=== PATIENT | female | born 1945 | race Caucasian/White ===

== ENCOUNTER 2020-12-23 17:11 | Observation (INO) | payer MEDICARE, SELFPAY ==
[2020-12-23] VITALS (9 sets, daily range): BP systolic 153–194; BP diastolic 68–105; PULSE 72–91; RESP 16–28; TEMP 36.2–36.8; O2SAT 95–99; BMI 37.5; BMI 41.6
--- NOTE | 2020-12-23 17:49 | RAD_ITS ---
STUDY: X-RAY - LEFT TIBIA AND FIBULA REASON FOR EXAM: Female, 75 years old. PAIN, INFECTION TECHNIQUE: 4 view(s) of the tibia and fibula were obtained. COMPARISON: None. FINDINGS: Normal visualized tibia. Normal visualized fibula. There is non-specific soft tissue swelling. RAD/Tibia & Fibula 2 Views IMPRESSION: Diffuse soft tissue swelling. Electronically Signed: Sonal Hernandez MD at 19:20 EDT Tel , Service support ,
--- NOTE | 2020-12-23 18:23 | ED.RN ---
PT IS A DIFFICULT IV START. WILL ATTEMPT A IV START WITH THE ULTRASOUND. Kunal STATON RN [id number]
--- NOTE | 2020-12-23 18:26 | RAD_ITS ---
STUDY: X-RAY - RIGHT TIBIA AND FIBULA REASON FOR EXAM: Female, 75 years old. Pain, infection TECHNIQUE: 4 view(s) of the tibia and fibula were obtained. COMPARISON: None. FINDINGS: Normal visualized tibia. Normal visualized fibula. There is non-specific soft tissue swelling. RAD/Tibia & Fibula 2 Views IMPRESSION: Soft tissue swelling. Electronically Signed: Sonal Hernandez MD at 19:17 EDT Tel , Service support ,
[2020-12-23 20:12] LABS: Absolute Lymphocyte Count 2.03 X10^3/uL (0.83-4.51); Absolute Neutrophil Count 10.8 X10^3/uL (2.0-7.7); Basophil# 0.08 X10^3/uL; Basophil% 0.6 % (0-1); Eosinophils% 1.4 % (0-5); Hematocrit 41.9 % (37-47); Hemoglobin 12.9 g/dL (12.0-15.0); Lymphocyte # 2.03 X10^3/ul (0.83-4.51); Lymphocyte % 14.1 % (19-41); Mean Corp Hgb Conc 30.8 g/dL (32-36); Mean Corpuscular Hgb 28.9 pg (27.0-32.0); Mean Corpuscular Volume 93.7 fL (81-99); Mean Platelet Vol. 10.5 fl (6.2-12.0); Monocyte# 1.28 X10^3/uL; Monocyte% 8.9 % (0-10); NRBC Flagged by Analyzer 0 % (0-5); Neutrophil # 10.77 X10^3/uL (2.7-7.7); Neutrophil % 74.7 % (47-70); POSITIVE COUNT YES; Platelet Count 280 K/mm3 (150-450); RBC Distribution Width CV 13.6 % (11.6-14.6); RBC Distribution Width SD 47.2 fl (35.1-43.9); Red Blood Count 4.47 M/mm3 (4.2-5.4); White Blood Count 14.4 K/mm3 (4.4-11.0)
[2020-12-23 20:16] LABS: Differential Indicated SCAN CRITERIA MET
[2020-12-23 20:33] LABS: ALB/GLOB Ratio 0.7 RATIO (0.9-2.4); AST(SGOT) 34 U/L (15-37); Alanine Aminotransfer ALT/SGPT 19 U/L (13-56); Albumin, Serum 3.1 g/dL (3.2-5.0); Alkaline Phosphatase 147 U/L (45-117); Anion Gap 4 (5-15); BUN 26 mg/dL (7-18); BUN/Creat Ratio 23.6 RATIO (10-20); Chloride 106 mmol/L (98-107); EST Glomerular Filtration Rate 51 mL/min (>60); Est Glom Filt Rate - Afr Amer 62 mL/min (>60); Estimated Creatinine Clearance 41.65 ml/min; Globulin 4.6 g/dL (2.2-4.2); Glucose 56 mg/dL (74-106); Lactic Acid 1.1 mmol/L (0.4-1.9); Potassium 4.8 mmol/L (3.5-5.1); Protein, Total 7.7 g/dL (6.4-8.2); Sodium Level 138 mmol/L (136-145)
--- NOTE | 2020-12-23 20:37 | EX.ED.DYSGE1 ---
HPI History of Present Illness Chief Complaint: Cellulitis Onset/Context/Timing Onset: Month(s) Context: Gradual Onset Timing: Continuous Location: BLE Current Severity: Moderate Maximum Severity: Moderate Narrative Narrative: Patient states she has been having swelling in both of her legs for the past 5 or 6 months, in addition to having a small wound on one of them near her ankle. She states she was sent to a wound care clinic in [place] by her doctor, and has seen lots of other doctors/specialists in the meantime. She has had wound care but no antibiotics, diuretics. She states that she has noticed significant worsening of the swelling, redness, pain, and wounds on both ankles for the past 3 or 4 weeks and states that she has seen so many care providers in that amount of time that she cannot remember how many or what they were but that no one prescribed her an antibiotic or a diuretic. She now presents out of concern because it looks and feels so bad. She states she felt a little feverish last night and she states she took her temperature at home and it was 100.2. She denies feeling poorly today or having symptoms elsewhere except for her legs, including denying dyspnea/orthopnea. She states she is a diabetic and that her sugars have been somewhat under control. PFSH PFSH Medical History Arthritis Chronic pain Combined hyperlipidemia Depression Diabetes Hypertension Hypothyroidism Non-smoker Home Medications amlodipine 10 mg PO DAILY 12/23/20 [History Last Taken Unknown] ergocalciferol (vitamin D2) [Vitamin D2] 1,250 mcg PO DAILY 12/23/20 [History Last Taken Unknown] hydroxyzine HCl 25 mg PO TID PRN 12/23/20 [History Last Taken Unknown] insulin aspart U-100 [Novolog Flexpen U-100 Insulin] 14 unit SUBCUT TID 12/23/20 [History Last Taken Unknown] insulin degludec [Tresiba FlexTouch U-100] 22 unit SUBCUT BID 12/23/20 [History Last Taken Unknown] levothyroxine 137 mcg PO DAILY 12/23/20 [History Last Taken Unknown] lisinopril 40 mg PO DAILY 12/23/20 [History Last Taken Unknown] meloxicam 15 mg PO DAILY 12/23/20 [History Last Taken Unknown] paroxetine HCl 20 mg PO DAILY 12/23/20 [History Last Taken Unknown] pramipexole 2 mg PO QHS 12/23/20 [History Last Taken Unknown] zolpidem 12.5 mg PO QHS 12/23/20 [History Last Taken Unknown] Allergy/AdvReac Type Severity Reaction Status Date / Time aspirin [From Percodan] Allergy Other Verified 12/23/20 17:12 oxycodone [From Percodan] Allergy Other Verified 12/23/20 17:12 vancomycin Allergy Rash Verified 12/23/20 21:40 Surgical History (Updated 12/23/20 @ 17:25 by Franko Hooper) History of appendectomy History of cholecystectomy History of lung biopsy Social History Smoking Status: Never smoker ROS ROS ED Constitutional Constitutional ED: Denies chills or fever(s) Eyes Eyes: Denies change in vision or diplopia ENT ENT ED: Denies rhinorrhea or sore throat Cardiovascular Cardiovascular: Denies chest pain or palpitations Respiratory/Chest Respiratory/Chest: Denies cough or dyspnea Gastrointestinal Gastrointestinal: Denies abdominal pain, diarrhea, nausea or vomiting Genitourinary Genitourinary ED: Denies dysuria or hematuria Musculoskeletal Musculoskeletal: Reports as per HPI and extremity pain; Denies back pain or neck pain Integumentary Reports as per HPI, rash and wounds; Denies abscess Neurologic Neurologic: Denies headache(s), paresthesias or weakness Psychiatric Psychiatric: Denies anxiety or suicidal thoughts EXAM Physical Exam Const Vital Signs: 12/23/20 17:12 12/23/20 18:56 12/23/20 19:14 Temperature 97.1 F L 98.2 F Temperature Source Temporal Temporal Pulse Rate 91 72 76 Respiratory Rate 18 16 20 H Blood Pressure 156/105 H 184/92 H Blood Pressure Mean 122 122 Pulse Ox 95 97 99 Oxygen Delivery Method Room Air Room Air Room Air 12/23/20 19:30 12/23/20 20:00 12/23/20 21:17 Temperature 98.2 F 98.2 F 97.7 F L Temperature Source Temporal Temporal Temporal Pulse Rate 79 83 Respiratory Rate 16 28 H Blood Pressure 174/70 H 178/104 H Blood Pressure Mean 104 128 Pulse Ox 98 97 Oxygen Delivery Method Room Air Room Air 12/23/20 21:19 Temperature 97.7 F L Temperature Source Temporal Pulse Rate Respiratory Rate Blood Pressure Blood Pressure Mean Pulse Ox Oxygen Delivery Method Positive well nourished, well developed and obese General Appearance ED: well developed and NAD Nutritional Appearance: obese HEENT Reports moist mucous membranes normocephalic and atraumatic Eyes PERRL and EOMs intact bilaterally Neck full ROM and supple Resp normal respiratory effort and clear to auscultation bilaterally Cardio regular rate, regular rhythm and no murmurs GI non-tender and non-distended Auscultation: normoactive bowel sounds Palpation: soft Back/Spine no CVA tenderness General Back: other FROM Extremity Extremity Narrative: Patient has symmetric appearing edematous both lower legs which are erythematous, with tender seeping wounds without any purulent discharge, with multiple scabbed areas and all of this does appear to be somewhat subacute/chronic. Feet do not appear to be affected by erythema or wounds. Brisk cap refill distally. Difficult to feel pulses due to edema. General Extremety ED: Negative for pulses abnormal General Extremity: Negative for pulses abnormal Neuro oriented x3, CN's II-XII intact bilaterally and no sensory deficits noted Sensorium / Orientation: awake and alert Motor Exam: strength 5/5 throughout Skin Skin Narrative: Wounds as described above to both lower legs circumferentially. No other rashes noted. No lymphangitis. No abscess. Clear-yellow serous weeping fluid. MDM MDM MDM Narrative Medical decision making narrative: Patient appears clinically to have lymphedema that likely resulted in what appears now to be fairly significant cellulitis in both legs with associated wounds that are seeping because they are open and she has lymphedema. Her BNP is well within normal limits, ruling out acute decompensated congestive heart failure as cause for her significant lymphedema in both lower extremities that appears symmetric. She has a leukocytosis. I think this is infectious on top of chronic lymphedema. I gave her a dose of vancomycin, however after about a third of it was infused she started developing an itchy red rash throughout the extremity that the IV was in, so it was stopped and subsequently discontinued. She was given Zosyn then after that. She wants to be admitted. I think we can justify that given the degree the infection is at at this time. On reexamination the cellulitis looks exactly the same as it did when I first saw her, as do the wounds. Her x-ray showed no subcutaneous gas or signs of bony involvement. Discussed with hospitalist. Patient clinically and hemodynamically stable and does not meet criteria for sepsis at this time, although we did do a septic work-up to begin with, her lactate was within normal limits and we did obtain one blood culture but she was such a difficult stick for blood, we skipped the second. Lab Data Attestation: I reviewed the patient's lab results. Labs: Laboratory Results - last 24 hr 12/23/20 12/23/20 12/23/20 18:45 19:51 19:51 WBC Cancelled Corrected WBC Cancelled RBC Cancelled Hgb Cancelled Hct Cancelled MCV Cancelled MCH Cancelled MCHC Cancelled RDW Std Deviation Cancelled RDW Coeff of Daphney Cancelled Plt Count Cancelled MPV Cancelled Immature Gran % (Auto) Cancelled Neut % (Auto) Cancelled Lymph % (Auto) Cancelled [place] % (Auto) Cancelled Eos % (Auto) Cancelled Baso % (Auto) Cancelled Absolute Neuts (auto) Cancelled Absolute Lymphs (auto) Cancelled Total Counted Cancelled Neutrophils % (Manual) Cancelled Band Neutrophils % Cancelled Lymphocytes % (Manual) Cancelled Monocytes % (Manual) Cancelled Eosinophils % (Manual) Cancelled Basophils % (Manual) Cancelled Metamyelocytes % Cancelled Myelocytes % Cancelled Promyelocytes % Cancelled Blast Cells % Cancelled Plasma Cell % (Manual) Cancelled Other Cells % Cancelled Nucleated RBC % Cancelled Nucleated RBCs/100 WBC Cancelled Differential Comment Cancelled Diff Path Review Cancelled Hypersegmented Neuts Cancelled Atypical Lymphocytes Cancelled Reactive Lymphocytes Cancelled Smudge Cells Cancelled Toxic Granulation Cancelled Toxic Vacuolation Cancelled Dohle Bodies Cancelled Shama Rods Cancelled Platelet Estimate Cancelled Plt Morphology Comment Cancelled RBC Morphology Cancelled Polychromasia Cancelled Hypochromasia Cancelled Poikilocytosis Cancelled Basophilic Stippling Cancelled Anisocytosis Cancelled Microcytosis Cancelled Macrocytosis Cancelled Spherocytes Cancelled Sickle Cells Cancelled Target Cells Cancelled Tear Drop Cells Cancelled Ovalocytes Cancelled Stomatocytes Cancelled [place] Bodies Cancelled Sunny Cells Cancelled Bite Cells Cancelled Crenated Cell Cancelled Acanthocytes (Spur) Cancelled Rouleaux Cancelled Schistocytes Cancelled Sodium 138 Potassium 4.8 Chloride 106 Carbon Dioxide 28.0 Anion Gap 4 L BUN 26 H Creatinine 1.10 H Estim Creat Clear Calc 41.65 Est GFR (MDRD) Af Amer 62 Est GFR (MDRD) Non-Af 51 L BUN/Creatinine Ratio 23.6 H Glucose 56 L Lactic Acid 1.1 Calcium 9.0 Total Bilirubin 0.50 AST 34 ALT 19 Alkaline Phosphatase 147 H B-Natriuretic Peptide Total Protein 7.7 Albumin 3.1 L Globulin 4.6 H Albumin/Globulin Ratio 0.7 L Urine Color Urine Clarity Urine pH Ur Specific [place] Urine Protein Urine Glucose (UA) Urine Ketones Urine Occult Blood Urine Nitrite Urine Bilirubin Urine Urobilinogen Ur Leukocyte Esterase Urine RBC Urine WBC Ur Squamous Epith Cells Urine Bacteria Urine Mucus 12/23/20 12/23/20 12/23/20 19:51 19:51 20:30 WBC 14.4 H Corrected WBC RBC 4.47 Hgb 12.9 Hct 41.9 MCV 93.7 MCH 28.9 MCHC 30.8 L RDW Std Deviation 47.2 H RDW Coeff of Daphney 13.6 Plt Count 280 MPV 10.5 Immature Gran % (Auto) 0.300 Neut % (Auto) 74.7 H Lymph % (Auto) 14.1 L [place] % (Auto) 8.9 Eos % (Auto) 1.4 Baso % (Auto) 0.6 Absolute Neuts (auto) 10.8 H Absolute Lymphs (auto) 2.03 Total Counted Neutrophils % (Manual) Band Neutrophils % Lymphocytes % (Manual) Monocytes % (Manual) Eosinophils % (Manual) Basophils % (Manual) Metamyelocytes % Myelocytes % Promyelocytes % Blast Cells % Plasma Cell % (Manual) Other Cells % Nucleated RBC % 0 Nucleated RBCs/100 WBC Differential Comment Diff Path Review Hypersegmented Neuts Atypical Lymphocytes Reactive Lymphocytes Smudge Cells Toxic Granulation Toxic Vacuolation Dohle Bodies Shama Rods Platelet Estimate ADEQUATE Plt Morphology Comment RBC Morphology NORM C+C Polychromasia Hypochromasia Poikilocytosis Basophilic Stippling Anisocytosis Microcytosis Macrocytosis Spherocytes Sickle Cells Target Cells Tear Drop Cells Ovalocytes Stomatocytes [place] Bodies Sunny Cells Bite Cells Crenated Cell Acanthocytes (Spur) Rouleaux Schistocytes Sodium Potassium Chloride Carbon Dioxide Anion Gap BUN Creatinine Estim Creat Clear Calc Est GFR (MDRD) Af Amer Est GFR (MDRD) Non-Af BUN/Creatinine Ratio Glucose Lactic Acid Calcium Total Bilirubin AST ALT Alkaline Phosphatase B-Natriuretic Peptide 45.0 Total Protein Albumin Globulin Albumin/Globulin Ratio Urine Color Yellow Urine Clarity Clear Urine pH 5.0 Ur Specific [place] 1.030 Urine Protein Negative Urine Glucose (UA) Normal Urine Ketones 5 H Urine Occult Blood Negative Urine Nitrite Negative Urine Bilirubin Negative Urine Urobilinogen Normal Ur Leukocyte Esterase 25 H Urine RBC 0 SEEN Urine WBC 0-5 SEEN Ur Squamous Epith Cells 0-5 SEEN Urine Bacteria 2+ Urine Mucus 0 SEEN Radiography Diagnostic Testing: Radiology Impression Tibia/Fibula X-Ray 12/23/20 17:49 IMPRESSION: Diffuse soft tissue swelling. Electronically Signed: Sonal Hernandez MD at 19:20 EDT Tel , Service support , Tibia/Fibula X-Ray 12/23/20 18:26 IMPRESSION: Soft tissue swelling. Electronically Signed: Sonal Hernandez MD at 19:17 EDT Tel , Service support , Discharge Plan Triage Chief Complaint: Cellulitis ED Provider: Williams Freire Dx/Rx/DC Orders Clinical Impression: Cellulitis of both lower extremities, Lymphedema of both lower extremities Prescriptions: No Action pramipexole 1 mg tablet 2 mg PO QHS RF: 0 meloxicam 15 mg tablet 15 mg PO DAILY RF: 0 amlodipine 10 mg tablet 10 mg PO DAILY RF: 0 paroxetine HCl 20 mg tablet 20 mg PO DAILY RF: 0 hydroxyzine HCl 25 mg tablet 25 mg PO TID PRN (Reason: Anxiety) RF: 0 ergocalciferol (vitamin D2) [Vitamin D2] 1,250 mcg (50,000 unit) capsule 1,250 mcg PO DAILY RF: 0 lisinopril 40 mg tablet 40 mg PO DAILY RF: 0 levothyroxine 112 mcg tablet 137 mcg PO DAILY RF: 0 insulin aspart U-100 [Novolog Flexpen U-100 Insulin] 100 unit/mL (3 mL) insulin pen 14 unit SUBCUT TID RF: 0 zolpidem 12.5 mg tablet,ext release multiphase 12.5 mg PO QHS RF: 0 Tresiba FlexTouch U-100 100 unit/mL (3 mL) insulin pen 22 unit SUBCUT BID RF: 0 Primary Care Provider: Shiv Weiner Referrals: Shiv Weiner MD [Primary Care Provider] - Disposition Disposition: Acute Care Hospital [facility]
[2020-12-23 20:43] LABS: Mucous, Urine 0 SEEN /hpf (<or=2+); Red Blood Cells-Urine 0 SEEN /hpf (0-5)
[2020-12-23 20:48] LABS: Color, Urine Yellow (Yellow); Glucose, Dipstick Normal (Normal); Ketone-Dipstick 5 mg/dl (Negative); Leukocyte Esterase-Dipstick 25 /ul (Negative); Nitrite-Dipstick Negative (Negative); Occult Blood-Urine Negative /ul (Negative); Protein-Dipstick Negative (Negative); Urine Bilirubin Dipstick Negative (Negative); Urine Clarity Clear (Clear); Urine Urobilinogen Normal (Normal)
[2020-12-23 20:57] LABS: Platelet Estimate ADEQUATE (ADEQ); Red Cell Morphology NORM C+C NORMAL (NORM C&C)
[2020-12-23 20:58] LABS: Bacteria 2+ /hpf (None Seen); Squamous Epithelial Cells - UA 0-5 SEEN /hpf (5-10); White Blood Cells 0-5 SEEN /hpf (0-5)
--- NOTE | 2020-12-23 21:40 | ED.RN ---
DURING INFUSION OF VANCOMYCIN PT DEVELOPED A RASH. MEDICATION PLACED ON HOLD AND DR FRANCOIS WAS INFORMED. ZOSYN WAS THEN ORDERED. WAITING FOR ZOSYN TO ARRIVE FROM PHARMACY. Kunal STATON RN [id number]
--- NOTE | 2020-12-23 21:48 | PCM.HP.STD ---
HPI - General General Date of Admission: 12/23/20 HPI Narrative BLANCO SANDOVAL, is a 75 F with a significant history of hypothyroidism; diabetes mellitus; vitamin D deficiency; hypertension; depression/anxiety; restless leg syndrome; and lymphedema who presents to the emergency department with 4 to 6 months history of progressively worsening swelling of her bilateral lower legs. Associated with symptoms is erythema and pain of bilateral legs. Reportedly she has been to the lymphedema clinic/wound care and has tried multiple regimen without success. He reported that the night before presentation she had a fever of 100.2 Fahrenheit. She had no fever at the emergency department. [facility] Medical History Anemia Arthritis Chronic pain Combined hyperlipidemia Depression Diabetes Hypertension Hypothyroidism Non-smoker Rheumatoid arthritis Home Medications amlodipine 10 mg PO DAILY 12/23/20 [History Last Taken Unknown] ergocalciferol (vitamin D2) [Vitamin D2] 1,250 mcg PO DAILY 12/23/20 [History Last Taken Unknown] hydroxyzine HCl 25 mg PO TID PRN 12/23/20 [History Last Taken Unknown] insulin aspart U-100 [Novolog Flexpen U-100 Insulin] 14 unit SUBCUT TID 12/23/20 [History Last Taken Unknown] insulin degludec [Tresiba FlexTouch U-100] 22 unit SUBCUT BID 12/23/20 [History Last Taken Unknown] levothyroxine 137 mcg PO DAILY 12/23/20 [History Last Taken Unknown] lisinopril 40 mg PO DAILY 12/23/20 [History Last Taken Unknown] meloxicam 15 mg PO DAILY 12/23/20 [History Last Taken Unknown] paroxetine HCl 20 mg PO DAILY 12/23/20 [History Last Taken Unknown] pramipexole 2 mg PO QHS 12/23/20 [History Last Taken Unknown] zolpidem 12.5 mg PO QHS 12/23/20 [History Last Taken Unknown] Allergy/AdvReac Type Severity Reaction Status Date / Time aspirin [From Percodan] Allergy Other Verified 12/23/20 17:12 oxycodone [From Percodan] Allergy Other Verified 12/23/20 17:12 vancomycin Allergy Rash Verified 12/23/20 21:40 Family History Other Cancer Heart disease Surgical History History of appendectomy History of cholecystectomy History of lung biopsy Social History Smoking Status: Never smoker ROS ROS Narrative 12 point review of system is negative except as stated in HPI. Vital Signs Vital Signs Vital Signs: 12/23/20 17:12 12/23/20 18:56 12/23/20 19:14 Temperature 97.1 F L 98.2 F Temperature Source Temporal Temporal Pulse Rate 91 72 76 Respiratory Rate 18 16 20 H Blood Pressure 156/105 H 184/92 H Blood Pressure Mean 122 122 Pulse Ox 95 97 99 Oxygen Delivery Method Room Air Room Air Room Air 12/23/20 19:30 12/23/20 20:00 12/23/20 21:17 Temperature 98.2 F 98.2 F 97.7 F L Temperature Source Temporal Temporal Temporal Pulse Rate 79 83 Respiratory Rate 16 28 H Blood Pressure 174/70 H 178/104 H Blood Pressure Mean 104 128 Pulse Ox 98 97 Oxygen Delivery Method Room Air Room Air 12/23/20 21:19 Temperature 97.7 F L Temperature Source Temporal Pulse Rate Respiratory Rate Blood Pressure Blood Pressure Mean Pulse Ox Oxygen Delivery Method Weight Weight: 108.862 kg Body Mass Index (BMI) 37.5 Physical Exam Narrative Physical exam: General: Obese elderly female. Head: Normocephalic, atraumatic, no tenderness Eyes: PERRLA, EOMI ENT, no trauma, moist mucous membranes, no rhinorrhea Neck: Nontender, full range of motion, no spinal tenderness, deformities, step-off CVS: Regular rate and rhythm Respiratory no acute distress, clear to auscultation bilaterally, chest wall nontender, no wheezing Abdomen: Soft, nontender, nondistended, normal bowel sounds, no masses : Deferred Extremities: Swelling of bilateral lower legs; erythema and excoriation bilateral lower legs; tenderness of bilateral lower legs. Decreased range of motion and strength of left upper extremity that she attributes to history of humeral fracture. Skin: Normal color, no trauma, abrasions Neuro: Alert, oriented, cranial nerves II through XII grossly intact. Results Lab / Micro Data Result Diagrams: 12/23/20 19:51 12/23/20 19:51 Labs: Laboratory Results - last 24 hr 12/23/20 12/23/20 12/23/20 18:45 19:51 19:51 WBC Cancelled Corrected WBC Cancelled RBC Cancelled Hgb Cancelled Hct Cancelled MCV Cancelled MCH Cancelled MCHC Cancelled RDW Std Deviation Cancelled RDW Coeff of Daphney Cancelled Plt Count Cancelled MPV Cancelled Immature Gran % (Auto) Cancelled Neut % (Auto) Cancelled Lymph % (Auto) Cancelled [place] % (Auto) Cancelled Eos % (Auto) Cancelled Baso % (Auto) Cancelled Absolute Neuts (auto) Cancelled Absolute Lymphs (auto) Cancelled Total Counted Cancelled Neutrophils % (Manual) Cancelled Band Neutrophils % Cancelled Lymphocytes % (Manual) Cancelled Monocytes % (Manual) Cancelled Eosinophils % (Manual) Cancelled Basophils % (Manual) Cancelled Metamyelocytes % Cancelled Myelocytes % Cancelled Promyelocytes % Cancelled Blast Cells % Cancelled Plasma Cell % (Manual) Cancelled Other Cells % Cancelled Nucleated RBC % Cancelled Nucleated RBCs/100 WBC Cancelled Differential Comment Cancelled Diff Path Review Cancelled Hypersegmented Neuts Cancelled Atypical Lymphocytes Cancelled Reactive Lymphocytes Cancelled Smudge Cells Cancelled Toxic Granulation Cancelled Toxic Vacuolation Cancelled Dohle Bodies Cancelled Shama Rods Cancelled Platelet Estimate Cancelled Plt Morphology Comment Cancelled RBC Morphology Cancelled Polychromasia Cancelled Hypochromasia Cancelled Poikilocytosis Cancelled Basophilic Stippling Cancelled Anisocytosis Cancelled Microcytosis Cancelled Macrocytosis Cancelled Spherocytes Cancelled Sickle Cells Cancelled Target Cells Cancelled Tear Drop Cells Cancelled Ovalocytes Cancelled Stomatocytes Cancelled [place] Bodies Cancelled Sunny Cells Cancelled Bite Cells Cancelled Crenated Cell Cancelled Acanthocytes (Spur) Cancelled Rouleaux Cancelled Schistocytes Cancelled Sodium 138 Potassium 4.8 Chloride 106 Carbon Dioxide 28.0 Anion Gap 4 L BUN 26 H Creatinine 1.10 H Estim Creat Clear Calc 41.65 Est GFR (MDRD) Af Amer 62 Est GFR (MDRD) Non-Af 51 L BUN/Creatinine Ratio 23.6 H Glucose 56 L Lactic Acid 1.1 Calcium 9.0 Total Bilirubin 0.50 AST 34 ALT 19 Alkaline Phosphatase 147 H B-Natriuretic Peptide Total Protein 7.7 Albumin 3.1 L Globulin 4.6 H Albumin/Globulin Ratio 0.7 L Urine Color Urine Clarity Urine pH Ur Specific [place] Urine Protein Urine Glucose (UA) Urine Ketones Urine Occult Blood Urine Nitrite Urine Bilirubin Urine Urobilinogen Ur Leukocyte Esterase Urine RBC Urine WBC Ur Squamous Epith Cells Urine Bacteria Urine Mucus 12/23/20 12/23/20 12/23/20 19:51 19:51 20:30 WBC 14.4 H Corrected WBC RBC 4.47 Hgb 12.9 Hct 41.9 MCV 93.7 MCH 28.9 MCHC 30.8 L RDW Std Deviation 47.2 H RDW Coeff of Daphney 13.6 Plt Count 280 MPV 10.5 Immature Gran % (Auto) 0.300 Neut % (Auto) 74.7 H Lymph % (Auto) 14.1 L [place] % (Auto) 8.9 Eos % (Auto) 1.4 Baso % (Auto) 0.6 Absolute Neuts (auto) 10.8 H Absolute Lymphs (auto) 2.03 Total Counted Neutrophils % (Manual) Band Neutrophils % Lymphocytes % (Manual) Monocytes % (Manual) Eosinophils % (Manual) Basophils % (Manual) Metamyelocytes % Myelocytes % Promyelocytes % Blast Cells % Plasma Cell % (Manual) Other Cells % Nucleated RBC % 0 Nucleated RBCs/100 WBC Differential Comment Diff Path Review Hypersegmented Neuts Atypical Lymphocytes Reactive Lymphocytes Smudge Cells Toxic Granulation Toxic Vacuolation Dohle Bodies Shama Rods Platelet Estimate ADEQUATE Plt Morphology Comment RBC Morphology NORM C+C Polychromasia Hypochromasia Poikilocytosis Basophilic Stippling Anisocytosis Microcytosis Macrocytosis Spherocytes Sickle Cells Target Cells Tear Drop Cells Ovalocytes Stomatocytes [place] Bodies [place] Cells Bite Cells Crenated Cell Acanthocytes (Spur) Rouleaux Schistocytes Sodium Potassium Chloride Carbon Dioxide Anion Gap BUN Creatinine Estim Creat Clear Calc Est GFR (MDRD) Af Amer Est GFR (MDRD) Non-Af BUN/Creatinine Ratio Glucose Lactic Acid Calcium Total Bilirubin AST ALT Alkaline Phosphatase B-Natriuretic Peptide 45.0 Total Protein Albumin Globulin Albumin/Globulin Ratio Urine Color Yellow Urine Clarity Clear Urine pH 5.0 Ur Specific [place] 1.030 Urine Protein Negative Urine Glucose (UA) Normal Urine Ketones 5 H Urine Occult Blood Negative Urine Nitrite Negative Urine Bilirubin Negative Urine Urobilinogen Normal Ur Leukocyte Esterase 25 H Urine RBC 0 SEEN Urine WBC 0-5 SEEN Ur Squamous Epith Cells 0-5 SEEN Urine Bacteria 2+ Urine Mucus 0 SEEN Radiology Impression Tibia/Fibula X-Ray 12/23/20 17:49 IMPRESSION: Diffuse soft tissue swelling. Electronically Signed: Sonal Hernandez MD at 19:20 EDT Tel , Service support , Tibia/Fibula X-Ray 12/23/20 18:26 IMPRESSION: Soft tissue swelling. Electronically Signed: Sonal Hernandez MD at 19:17 EDT Tel , Service support , Assessment & Plan Assessment/Plan (1) Venous stasis: (2) Lymphedema of both lower extremities: PLAN: Venous stasis/lymphedema of bilateral lower legs. Kerlix roll and bela wraps to bilateral legs. Stop home amlodipine. Lasix 40 mg p.o. daily ordered. Trend BMP. Wound care consult. Of note patient reports home low-grade fever. Review of Emergency department labs showed leukocytosis. Vancomycin was started at the emergency department but stopped secondary to itchy red rash around IV site. Received Zosyn at the emergency department. Because of reported low-grade fever at home and leukocytosis Ancef ordered. Hypertensive urgency Blood pressure is elevated with highest systolic blood pressure of 194 and highest diastolic blood pressure of 104 Lisinopril continued. Amlodipine held secondary to bilateral leg edema. As needed hydralazine ordered. Trend blood pressure and adjust blood pressure medications. Diabetes mellitus Evaluated by labs showed glucose of 56 on BMP; Asymptomatic hypoglycemia. Hold all home hypoglycemic regimen. Accu-Cheks ordered. Hypoglycemic regimen ordered. DVT prophylaxis: Subcutaneous Lovenox ordered. Charges/Coding Visit Charges OBSV E&M: 01273 Initial observation care L3
[2020-12-23] MEDS: Pramipexole Di-HCl 1 MG Tablet 2 MG PO (23:23)
[2020-12-24] MEDS: Acetaminophen 325 MG Tablet 650 MG PO ×2 (00:39→06:46)
[2020-12-24] MEDS: Zolpidem Tartrate 5 MG Tablet PO (00:40)
[2020-12-24] MEDS: Sodium Chloride 0.65% 1 SPRAY SPRAY.BTL 2 SPRAY NASAL (03:40)
[2020-12-24 03:42] VITALS: BP 148/66; PULSE 68; RESP 18; TEMP 36.8; O2SAT 96
[2020-12-24] MEDS: Cefazolin 1 GM/50 ML BAG IV (06:10)
[2020-12-24] MEDS: Levothyroxine 137 MCG Tablet PO (06:46)
[2020-12-24 06:49] LABS: Absolute Lymphocyte Count 1.98 X10^3/uL (0.83-4.51); Absolute Neutrophil Count 6.9 X10^3/uL (2.0-7.7); Basophil# 0.07 X10^3/uL; Basophil% 0.7 % (0-1); Eosinophil# 0.23 X10^3/uL; Eosinophils% 2.3 % (0-5); Hematocrit 38.5 % (37-47); Hemoglobin 11.9 g/dL (12.0-15.0); Lymphocyte # 1.98 X10^3/ul (0.83-4.51); Lymphocyte % 19.5 % (19-41); Mean Corp Hgb Conc 30.9 g/dL (32-36); Mean Corpuscular Volume 93.9 fL (81-99); Mean Platelet Vol. 10.1 fl (6.2-12.0); Monocyte# 0.94 X10^3/uL; Monocyte% 9.3 % (0-10); NRBC Flagged by Analyzer 0 % (0-5); Neutrophil % 67.9 % (47-70); Platelet Count 295 K/mm3 (150-450); RBC Distribution Width CV 13.7 % (11.6-14.6); RBC Distribution Width SD 47.6 fl (35.1-43.9); White Blood Count 10.2 K/mm3 (4.4-11.0)
[2020-12-24 07:01] LABS: Bedside Glucose 164 mg/dL (70-110)
[2020-12-24 07:17] LABS: Anion Gap 7 (5-15); BUN 21 mg/dL (7-18); Chloride 109 mmol/L (98-107); EST Glomerular Filtration Rate 57 mL/min (>60); Est Glom Filt Rate - Afr Amer 69 mL/min (>60); Estimated Creatinine Clearance 45.82 ml/min; Glucose 144 mg/dL (74-106); Potassium 4.2 mmol/L (3.5-5.1); Sodium Level 141 mmol/L (136-145)
[2020-12-24 08:20] LABS: Vitamin D,25 Hydroxy 22.4 ng/mL
[2020-12-24] MEDS: Lisinopril 40 MG Tablet PO (08:44)
[2020-12-24] MEDS: Meloxicam 15 MG Tablet PO (08:44)
[2020-12-24] MEDS: Furosemide 40 MG Tablet PO ×2 (08:44→08:49)
[2020-12-24] MEDS: Enoxaparin 40 MG/0.4 ML Syringe SC (08:44)
[2020-12-24] MEDS: Paroxetine 20 MG Tablet PO (08:45)
[2020-12-24] MEDS: Glucerna Shake 120 ML LIQUID PO (08:49)
--- NOTE | 2020-12-24 08:49 | ECHOL_ITS ---
Reason For Study: EDEMA Procedure This was a limited 2D transthoracic echocardiogram. Exam performed portable in patient room. Left Ventricle Normal left ventricle. Concentric left ventricular hypertrophy. The estimated ejection fraction is EF 55-60 %. Right Ventricle Mildly dilated right ventricle. Mild global right ventricular systolic dysfunction. Atria The left atrium is mildly enlarged. Normal right atrium. Mitral Valve There is moderate mitral annular calcification. No mitral valve insufficiency. Tricuspid Valve Normal tricuspid valve. Aortic Valve Normal aortic valve. Pulmonic Valve The pulmonic valve is not well visualized. Great Vessels Normal aortic root. Pericardium/Pleural No pericardial effusion. MMode/2D Measurements & Calculations LVIDd: 4.5 cm IVSd: 1.2 cm Ao root diam: 3.1 cm LVIDs: 3.2 cm LVPWd: 1.2 cm LA dimension: 4.0 cm RVDd: 3.6 cm FS: 29.6 % LAV(MOD-bp): 98.5 ml LA A4 area: 26.4 cm2 RA A4 area: 16.3 cm2 LAV(MOD-bp) Indexed: 43.1 ml/m2 LAV(MOD-sp2): 95.6 ml LAV(MOD-sp4): 95.5 ml Doppler Measurements & Calculations TR max arlette: 287.0 cm/sec TR max P.9 mmHg ECHO/Echo, Limited Study Interpretation Summary Mild concentric left ventricular hypertrophy. The estimated ejection fraction is EF 55-60 %. Mild LAE Mild Pulmonary Hypertension with RVSP 42 mmhg Ordering Physician: Mack Wilkins Referring Physician: Shiv Weiner Performed By: Mary Arias RDCS, RVT
--- NOTE | 2020-12-24 08:49 | EKG12_ITS ---
Test Reason : HYPER-TENSION Blood Pressure : / mmHG Vent. Rate : 070 BPM Atrial Rate : 070 BPM P-R Int : 150 ms QRS Dur : 074 ms QT Int : 398 ms P-R-T Axes : 058 -17 050 degrees QTc Int : 429 ms Normal sinus rhythm Normal ECG No previous ECGs available Confirmed by YVES TOWNSEND, OTTO ([id number]), medical editor JOHANA CUEVA ([id number]) on 12/29/2020 7:47:56 AM Referred By: TORY Confirmed By:OTTO MARINELLI MD
--- NOTE | 2020-12-24 08:54 | PN.HOSP_ITS ---
Subjective Subjective Has been dealing with LE edema for several months. Numerous therapies have yielded no positive results and her legs have continued to swell and weep. Objective Data Objective Data Vital Signs: Vital Signs Temp Pulse Resp BP Pulse Ox 36.8 C 68 18 148/66 H 96 12/24/20 03:42 12/24/20 03:42 12/24/20 03:42 12/24/20 03:42 12/24/20 03:42 Oxygen Delivery Method Room Air Weight: 120.7 kg Body Mass Index (BMI) 41.6 Intake & Output: Intake and Output for Last 24 Hours 12/22/20 12/23/20 12/24/20 23:59 23:59 23:59 Intake Total 395.83 / 595.83 250 / 250 Balance 395.83 / 595.83 250 / 250 Lab / Micro Data Attestation: I reviewed the patient's lab results. Result Diagrams: 12/24/20 05:54 12/24/20 05:54 Labs: Laboratory Results - last 24 hr 12/23/20 12/23/20 12/23/20 18:45 19:51 19:51 WBC Cancelled Corrected WBC Cancelled RBC Cancelled Hgb Cancelled Hct Cancelled MCV Cancelled MCH Cancelled MCHC Cancelled RDW Std Deviation Cancelled RDW Coeff of Daphney Cancelled Plt Count Cancelled MPV Cancelled Immature Gran % (Auto) Cancelled Neut % (Auto) Cancelled Lymph % (Auto) Cancelled [place] % (Auto) Cancelled Eos % (Auto) Cancelled Baso % (Auto) Cancelled Absolute Neuts (auto) Cancelled Absolute Lymphs (auto) Cancelled Total Counted Cancelled Neutrophils % (Manual) Cancelled Band Neutrophils % Cancelled Lymphocytes % (Manual) Cancelled Monocytes % (Manual) Cancelled Eosinophils % (Manual) Cancelled Basophils % (Manual) Cancelled Metamyelocytes % Cancelled Myelocytes % Cancelled Promyelocytes % Cancelled Blast Cells % Cancelled Plasma Cell % (Manual) Cancelled Other Cells % Cancelled Nucleated RBC % Cancelled Nucleated RBCs/100 WBC Cancelled Differential Comment Cancelled Diff Path Review Cancelled Hypersegmented Neuts Cancelled Atypical Lymphocytes Cancelled Reactive Lymphocytes Cancelled Smudge Cells Cancelled Toxic Granulation Cancelled Toxic Vacuolation Cancelled Dohle Bodies Cancelled Shama Rods Cancelled Platelet Estimate Cancelled Plt Morphology Comment Cancelled RBC Morphology Cancelled Polychromasia Cancelled Hypochromasia Cancelled Poikilocytosis Cancelled Basophilic Stippling Cancelled Anisocytosis Cancelled Microcytosis Cancelled Macrocytosis Cancelled Spherocytes Cancelled Sickle Cells Cancelled Target Cells Cancelled Tear Drop Cells Cancelled Ovalocytes Cancelled Stomatocytes Cancelled [place] Bodies Cancelled Sunny Cells Cancelled Bite Cells Cancelled Crenated Cell Cancelled Acanthocytes (Spur) Cancelled Rouleaux Cancelled Schistocytes Cancelled Sodium 138 Potassium 4.8 Chloride 106 Carbon Dioxide 28.0 Anion Gap 4 L BUN 26 H Creatinine 1.10 H Estim Creat Clear Calc 41.65 Est GFR (MDRD) Af Amer 62 Est GFR (MDRD) Non-Af 51 L BUN/Creatinine Ratio 23.6 H Glucose 56 L Lactic Acid 1.1 Calcium 9.0 Total Bilirubin 0.50 AST 34 ALT 19 Alkaline Phosphatase 147 H B-Natriuretic Peptide Total Protein 7.7 Albumin 3.1 L Globulin 4.6 H Albumin/Globulin Ratio 0.7 L Vitamin D 25-Hydroxy Urine Color Urine Clarity Urine pH Ur Specific [place] Urine Protein Urine Glucose (UA) Urine Ketones Urine Occult Blood Urine Nitrite Urine Bilirubin Urine Urobilinogen Ur Leukocyte Esterase Urine RBC Urine WBC Ur Squamous Epith Cells Urine Bacteria Urine Mucus POC Glucose 12/23/20 12/23/20 12/23/20 19:51 19:51 20:30 WBC 14.4 H Corrected WBC RBC 4.47 Hgb 12.9 Hct 41.9 MCV 93.7 MCH 28.9 MCHC 30.8 L RDW Std Deviation 47.2 H RDW Coeff of Daphney 13.6 Plt Count 280 MPV 10.5 Immature Gran % (Auto) 0.300 Neut % (Auto) 74.7 H Lymph % (Auto) 14.1 L [place] % (Auto) 8.9 Eos % (Auto) 1.4 Baso % (Auto) 0.6 Absolute Neuts (auto) 10.8 H Absolute Lymphs (auto) 2.03 Total Counted Neutrophils % (Manual) Band Neutrophils % Lymphocytes % (Manual) Monocytes % (Manual) Eosinophils % (Manual) Basophils % (Manual) Metamyelocytes % Myelocytes % Promyelocytes % Blast Cells % Plasma Cell % (Manual) Other Cells % Nucleated RBC % 0 Nucleated RBCs/100 WBC Differential Comment Diff Path Review Hypersegmented Neuts Atypical Lymphocytes Reactive Lymphocytes Smudge Cells Toxic Granulation Toxic Vacuolation Dohle Bodies Shama Rods Platelet Estimate ADEQUATE Plt Morphology Comment RBC Morphology NORM C+C Polychromasia Hypochromasia Poikilocytosis Basophilic Stippling Anisocytosis Microcytosis Macrocytosis Spherocytes Sickle Cells Target Cells Tear Drop Cells Ovalocytes Stomatocytes [place] Bodies Sunny Cells Bite Cells Crenated Cell Acanthocytes (Spur) Rouleaux Schistocytes Sodium Potassium Chloride Carbon Dioxide Anion Gap BUN Creatinine Estim Creat Clear Calc Est GFR (MDRD) Af Amer Est GFR (MDRD) Non-Af BUN/Creatinine Ratio Glucose Lactic Acid Calcium Total Bilirubin AST ALT Alkaline Phosphatase B-Natriuretic Peptide 45.0 Total Protein Albumin Globulin Albumin/Globulin Ratio Vitamin D 25-Hydroxy Urine Color Yellow Urine Clarity Clear Urine pH 5.0 Ur Specific [place] 1.030 Urine Protein Negative Urine Glucose (UA) Normal Urine Ketones 5 H Urine Occult Blood Negative Urine Nitrite Negative Urine Bilirubin Negative Urine Urobilinogen Normal Ur Leukocyte Esterase 25 H Urine RBC 0 SEEN Urine WBC 0-5 SEEN Ur Squamous Epith Cells 0-5 SEEN Urine Bacteria 2+ Urine Mucus 0 SEEN POC Glucose 12/24/20 12/24/20 12/24/20 05:54 05:54 05:54 WBC 10.2 Corrected WBC RBC 4.10 L Hgb 11.9 L Hct 38.5 MCV 93.9 MCH 29.0 MCHC 30.9 L RDW Std Deviation 47.6 H RDW Coeff of Daphney 13.7 Plt Count 295 MPV 10.1 Immature Gran % (Auto) 0.300 Neut % (Auto) 67.9 Lymph % (Auto) 19.5 [place] % (Auto) 9.3 Eos % (Auto) 2.3 Baso % (Auto) 0.7 Absolute Neuts (auto) 6.9 Absolute Lymphs (auto) 1.98 Total Counted Neutrophils % (Manual) Band Neutrophils % Lymphocytes % (Manual) Monocytes % (Manual) Eosinophils % (Manual) Basophils % (Manual) Metamyelocytes % Myelocytes % Promyelocytes % Blast Cells % Plasma Cell % (Manual) Other Cells % Nucleated RBC % 0 Nucleated RBCs/100 WBC Differential Comment Diff Path Review Hypersegmented Neuts Atypical Lymphocytes Reactive Lymphocytes Smudge Cells Toxic Granulation Toxic Vacuolation Dohle Bodies Shama Rods Platelet Estimate Plt Morphology Comment RBC Morphology Polychromasia Hypochromasia Poikilocytosis Basophilic Stippling Anisocytosis Microcytosis Macrocytosis Spherocytes Sickle Cells Target Cells Tear Drop Cells Ovalocytes Stomatocytes [place] Bodies Sunny Cells Bite Cells Crenated Cell Acanthocytes (Spur) Rouleaux Schistocytes Sodium 141 Potassium 4.2 Chloride 109 H Carbon Dioxide 25.0 Anion Gap 7 BUN 21 H Creatinine 1.00 Estim Creat Clear Calc 45.82 Est GFR (MDRD) Af Amer 69 Est GFR (MDRD) Non-Af 57 L BUN/Creatinine Ratio 21.0 H Glucose 144 H Lactic Acid Calcium 8.0 L Total Bilirubin AST ALT Alkaline Phosphatase B-Natriuretic Peptide Total Protein Albumin Globulin Albumin/Globulin Ratio Vitamin D 25-Hydroxy 22.4 Urine Color Urine Clarity Urine pH Ur Specific [place] Urine Protein Urine Glucose (UA) Urine Ketones Urine Occult Blood Urine Nitrite Urine Bilirubin Urine Urobilinogen Ur Leukocyte Esterase Urine RBC Urine WBC Ur Squamous Epith Cells Urine Bacteria Urine Mucus POC Glucose 12/24/20 06:51 WBC Corrected WBC RBC Hgb Hct MCV MCH MCHC RDW Std Deviation RDW Coeff of Daphney Plt Count MPV Immature Gran % (Auto) Neut % (Auto) Lymph % (Auto) [place] % (Auto) Eos % (Auto) Baso % (Auto) Absolute Neuts (auto) Absolute Lymphs (auto) Total Counted Neutrophils % (Manual) Band Neutrophils % Lymphocytes % (Manual) Monocytes % (Manual) Eosinophils % (Manual) Basophils % (Manual) Metamyelocytes % Myelocytes % Promyelocytes % Blast Cells % Plasma Cell % (Manual) Other Cells % Nucleated RBC % Nucleated RBCs/100 WBC Differential Comment Diff Path Review Hypersegmented Neuts Atypical Lymphocytes Reactive Lymphocytes Smudge Cells Toxic Granulation Toxic Vacuolation Dohle Bodies Shama Rods Platelet Estimate Plt Morphology Comment RBC Morphology Polychromasia Hypochromasia Poikilocytosis Basophilic Stippling Anisocytosis Microcytosis Macrocytosis Spherocytes Sickle Cells Target Cells Tear Drop Cells Ovalocytes Stomatocytes [place] Bodies Sunny Cells Bite Cells Crenated Cell Acanthocytes (Spur) Rouleaux Schistocytes Sodium Potassium Chloride Carbon Dioxide Anion Gap BUN Creatinine Estim Creat Clear Calc Est GFR (MDRD) Af Amer Est GFR (MDRD) Non-Af BUN/Creatinine Ratio Glucose Lactic Acid Calcium Total Bilirubin AST ALT Alkaline Phosphatase B-Natriuretic Peptide Total Protein Albumin Globulin Albumin/Globulin Ratio Vitamin D 25-Hydroxy Urine Color Urine Clarity Urine pH Ur Specific [place] Urine Protein Urine Glucose (UA) Urine Ketones Urine Occult Blood Urine Nitrite Urine Bilirubin Urine Urobilinogen Ur Leukocyte Esterase Urine RBC Urine WBC Ur Squamous Epith Cells Urine Bacteria Urine Mucus POC Glucose 164 H Radiography Diagnostic Testing: Radiology Impression Tibia/Fibula X-Ray 12/23/20 17:49 IMPRESSION: Diffuse soft tissue swelling. Electronically Signed: Sonal Hernandez MD at 19:20 EDT Tel , Service support , Tibia/Fibula X-Ray 12/23/20 18:26 IMPRESSION: Soft tissue swelling. Electronically Signed: Sonal Hernandez MD at 19:17 EDT Tel , Service support , Physical Exam Const alert and oriented x3 HEENT Head and Scalp: normocephalic Eyes PERRL Resp normal respiratory effort, no retractions, no use of accessory muscles and clear to auscultation bilaterally Cardio regular rate, regular rhythm, S1 normal heart sound and S2 normal heart sound GI normal to inspection, nondistended, normoactive bowel sounds, soft to palpation, non-tender, non-distended and hepatosplenomegaly Skin Skin Narrative: Lymphedematous changes to bilateral lower extremities. From mid seals to ankle. Diffusely red and warm. Does have some weeping noted and crusting on her legs as well. No foul odor or purulence appreciated. Assessment & Plan Assessment/Plan (1) Lymphedema of both lower extremities: (2) Abnormal echocardiogram: PLAN: 1. Bilateral lower extremity lymphedema * Wounds are weeping and are crusted over, however, I do not appreciate any active infection and will discontinue antibiotics * Agree with holding amlodipine and patient has been started on furosemide as well 2. Abnormal echocardiogram * Patient had echocardiogram on October 07, 2020: It showed mild concentric LVH with wall thickness of 13 mm. Patient also has mildly dilated RV with elevated RV systolic pressure of 41 mmHg * I doubt hypertrophic obstructive cardiomyopathy as patient has no symptomatology associated with that but I am concerned with a concentric LVH. Patient denies any family history of early cardiac of the patient's brother when he was 19 in a car accident. * Will consult cardiology for input and repeat echocardiogram * I suspect patient does have some secondary pulmonary hypertension would warrant further work-up with outpatient polysomnogram at the minimum. 3. Hypertension * Amlodipine currently being held given the lower extremity edema. Patient has been on amlodipine for some period of time but longer than her swelling which has been going on for roughly 5 months. * Discussed with her about discontinuing the amlodipine because of the side effect of edema. She expressed understanding regards to that. * Will await further cardiology instructions and recommendations based on the review of the echocardiogram and whether it is felt the patient does have hypertrophic cardiomyopathy. Greater than 40 minutes of which greater than 50% of time was reviewing echocardiogram results and discussing with the patient about the echocardiogram results. Charges/Coding Visit Charges OBSV E&M: 37777 Subsequent observation care L3
[2020-12-24 08:58] VITALS: BP 168/68; PULSE 70; RESP 16; TEMP 36.6; O2SAT 98
[2020-12-24 11:07] VITALS: O2SAT 95
[2020-12-24 11:20] LABS: Bedside Glucose 215 mg/dL (70-110)
--- NOTE | 2020-12-24 11:38 | CASEMGMT ---
TONI BARROW Assessment: Face to Face with pt for initial transition planning/care coordination assessment. TONI BARROW introduced self and role at [facility], pt voices understanding and consents to assessment. Pt is A/O x4 and answers all questions appropriately at this time. Pt sitting up in bed in no distress. Care providers, pharmacy, and demographics verified/updated. Admitting Dx: venous stasis PCP:Janneth Specialists: Pt denies having any specialists currently [facility]erred [facility]acy: [facility] Insurance: [employer] [facility] Prescription Benefit: yes LW/HPOA: Pt denies having a LW/DPOA. LNOK: Marquez Roger, son Living Arrangements: Pt lives alone in a single story house with 1 step to enter. Pt states she is able to do ADL's fairly well. She states her son comes to her house to do her laundry. Pt denies concerns at home. Transportation: Pt states she drives self and denies concerns with transportation. DME/HHC/SNF: Pt has a cane, grab bars in the bathroom, glucometer with insulin pen and needles. Pt denies any previous HHC or SNF stays. Pt reports her passed a few months ago. Asked if she felt like she would want to talk with social media marketing manager. She denied at this time. Pt states that she has been dealing with the swelling for quite a few months. States she previously worked with a PT in [place], then was referred to a crop puller in [place] who she cannot remember the name of who had pt get pumps for her legs. Pt states these did not work either. Pt states she is able to bela wrap her legs herself and denied need for any HHC. Discussed the possibility of following up with the wound center and pt states she would do that if recommended. Pt states no concerns with going home at time of dc. Pt states no further concerns/needs. CM to follow. Advised pt to ask CM if any further question/concerns/needs arise, voices understanding. Pt Goal: Home Plan: Home
[2020-12-24 12:00] VITALS: BP 147/62; PULSE 68; RESP 16; TEMP 37.1; O2SAT 96
--- NOTE | 2020-12-24 13:12 | PCM.CONS.C ---
Assessment & Plan Assessment/Plan (1) Abnormal echocardiogram: PLAN: 75-year-old female admitted with bilateral lower extremity swelling with lymphedema and chronic venous stasis. Patient denied any cardiac history in particular no symptoms of chest pain, no shortness of breath no syncopal episode or palpitation She has a prior echocardiogram which showed mild ventricle hypertrophy with mild pulmonary hypertension and left atrial enlargement with mild RV dilatation and ejection fraction has been preserved, I have RV systolic pressure in the range of 40s. Bedside cardiac examination cardiac exam essentially normal Noted she had bilateral lower extremity swelling/lymphedema/chronic venous stasis And a cardiac work-up with EKG and high sensitive troponins were within normal Recommendation plan; 1. Repeat echocardiogram today showed mild left ventricular hypertrophy/concentric no echocardiographic signs of hypertrophic cardiomyopathy 2. Patient has mild RV dilatation with mild pulmonary hypertension 3. Would recommend from cardiac standpoint to set up an evaluation as an outpatient with shank tapper. 4. No further cardiac work-up would be required as an inpatient. Agree for the need of evaluation for OSITO/sleep study as she has mild secondary pulmonary hypertension. (2) Lymphedema of both lower extremities: (3) Venous stasis: HPI Consult Data Date of Consult: 12/24/20 HPI Narrative Reason for Consultation: Abnormal echo with the mild LVH/mild RV dilatation . HPI Narrative: BLANCO SANDOVAL, is a 75 F who presents [facility] Medical History Anemia Arthritis Chronic pain Combined hyperlipidemia Depression Diabetes Hypertension Hypothyroidism Non-smoker Rheumatoid arthritis Home Medications ergocalciferol (vitamin D2) [Vitamin D2] 1,250 mcg PO QWEEK 12/23/20 [History Last Taken Unknown] hydroxyzine HCl 25 mg PO TID PRN 12/23/20 [History Last Taken Unknown] levothyroxine 137 mcg PO DAILY 12/23/20 [History Last Taken Unknown] lisinopril 40 mg PO DAILY 12/23/20 [History Last Taken Unknown] meloxicam 15 mg PO DAILY 12/23/20 [History Last Taken Unknown] paroxetine HCl 20 mg PO DAILY 12/23/20 [History Last Taken Unknown] pramipexole 2 mg PO QHS 12/23/20 [History Last Taken Unknown] zolpidem 12.5 mg PO QHS 12/23/20 [History Last Taken Unknown] Tresiba FlexTouch U-100 20 unit SUBCUT BID #0 ml 12/24/20 [Rx Last Taken Unknown] hydrochlorothiazide 25 mg PO DAILY #30 tab 12/24/20 [Rx Last Taken Unknown] insulin aspart U-100 [Novolog Flexpen U-100 Insulin] 10 unit SUBCUT TID #0 ml 12/24/20 [Rx Last Taken Unknown] Allergy/AdvReac Type Severity Reaction Status Date / Time aspirin [From Percodan] Allergy Other Verified 12/23/20 17:12 oxycodone [From Percodan] Allergy Other Verified 12/23/20 17:12 vancomycin Allergy Rash Verified 12/23/20 21:40 Family History Other Cancer Heart disease Surgical History History of appendectomy History of cholecystectomy History of lung biopsy Social History Smoking Status: Never smoker Physical Exam Narrative Seen and evaluated at bedside along with the nursing staff She is alert orientated not in acute distress Presentation is bilateral lower extremity swelling with lymphedema Patient had no symptoms of syncope no dizziness no chest pain and also has no prior cardiac evaluation Cardiac examination; S1-S2 regular, no murmur no systolic or diastolic murmur, no pericardial rub. Chest examination; normal to auscultation Abdomen soft Examination lower extremities she had bilateral lower extremity swelling/lymphedema/chronic venous stasis Objective Data Vital Signs: Vital Signs Temp Pulse Resp BP Pulse Ox 98.8 F 68 16 147/62 H 96 12/24/20 12:00 12/24/20 12:00 12/24/20 12:00 12/24/20 12:00 12/24/20 12:00 Oxygen Delivery Method Room Air Weight: 266 lb 1.567 oz Body Mass Index (BMI) 41.6 Intake & Output: Intake and Output for Last 24 Hours 12/22/20 12/23/20 12/24/20 23:59 23:59 23:59 Intake Total 395.83 / 595.83 600 / 600 Balance 395.83 / 595.83 600 / 600 Lab / Micro Data Result Diagrams: 12/24/20 05:54 12/24/20 05:54 Labs: Laboratory Results - last 24 hr 12/23/20 12/23/20 12/23/20 18:45 19:51 19:51 WBC Cancelled Corrected WBC Cancelled RBC Cancelled Hgb Cancelled Hct Cancelled MCV Cancelled MCH Cancelled MCHC Cancelled RDW Std Deviation Cancelled RDW Coeff of [place] Cancelled Plt Count Cancelled MPV Cancelled Immature Gran % (Auto) Cancelled Neut % (Auto) Cancelled Lymph % (Auto) Cancelled [place] % (Auto) Cancelled Eos % (Auto) Cancelled Baso % (Auto) Cancelled Absolute Neuts (auto) Cancelled Absolute Lymphs (auto) Cancelled Total Counted Cancelled Neutrophils % (Manual) Cancelled Band Neutrophils % Cancelled Lymphocytes % (Manual) Cancelled Monocytes % (Manual) Cancelled Eosinophils % (Manual) Cancelled Basophils % (Manual) Cancelled Metamyelocytes % Cancelled Myelocytes % Cancelled Promyelocytes % Cancelled Blast Cells % Cancelled Plasma Cell % (Manual) Cancelled Other Cells % Cancelled Nucleated RBC % Cancelled Nucleated RBCs/100 WBC Cancelled Differential Comment Cancelled Diff Path Review Cancelled Hypersegmented Neuts Cancelled Atypical Lymphocytes Cancelled Reactive Lymphocytes Cancelled Smudge Cells Cancelled Toxic Granulation Cancelled Toxic Vacuolation Cancelled Dohle Bodies Cancelled Shama Rods Cancelled Platelet Estimate Cancelled Plt Morphology Comment Cancelled RBC Morphology Cancelled Polychromasia Cancelled Hypochromasia Cancelled Poikilocytosis Cancelled Basophilic Stippling Cancelled Anisocytosis Cancelled Microcytosis Cancelled Macrocytosis Cancelled Spherocytes Cancelled Sickle Cells Cancelled Target Cells Cancelled Tear Drop Cells Cancelled Ovalocytes Cancelled Stomatocytes Cancelled [place] Bodies Cancelled Sunny Cells Cancelled Bite Cells Cancelled Crenated Cell Cancelled Acanthocytes (Spur) Cancelled Rouleaux Cancelled Schistocytes Cancelled Sodium 138 Potassium 4.8 Chloride 106 Carbon Dioxide 28.0 Anion Gap 4 L BUN 26 H Creatinine 1.10 H Estim Creat Clear Calc 41.65 Est GFR (MDRD) Af Amer 62 Est GFR (MDRD) Non-Af 51 L BUN/Creatinine Ratio 23.6 H Glucose 56 L Lactic Acid 1.1 Calcium 9.0 Total Bilirubin 0.50 AST 34 ALT 19 Alkaline Phosphatase 147 H B-Natriuretic Peptide Total Protein 7.7 Albumin 3.1 L Globulin 4.6 H Albumin/Globulin Ratio 0.7 L Vitamin D 25-Hydroxy Urine Color Urine Clarity Urine pH Ur Specific [place] Urine Protein Urine Glucose (UA) Urine Ketones Urine Occult Blood Urine Nitrite Urine Bilirubin Urine Urobilinogen Ur Leukocyte Esterase Urine RBC Urine WBC Ur Squamous Epith Cells Urine Bacteria Urine Mucus POC Glucose 12/23/20 12/23/20 12/23/20 19:51 19:51 20:30 WBC 14.4 H Corrected WBC RBC 4.47 Hgb 12.9 Hct 41.9 MCV 93.7 MCH 28.9 MCHC 30.8 L RDW Std Deviation 47.2 H RDW Coeff of [place] 13.6 Plt Count 280 MPV 10.5 Immature Gran % (Auto) 0.300 Neut % (Auto) 74.7 H Lymph % (Auto) 14.1 L [place] % (Auto) 8.9 Eos % (Auto) 1.4 Baso % (Auto) 0.6 Absolute Neuts (auto) 10.8 H Absolute Lymphs (auto) 2.03 Total Counted Neutrophils % (Manual) Band Neutrophils % Lymphocytes % (Manual) Monocytes % (Manual) Eosinophils % (Manual) Basophils % (Manual) Metamyelocytes % Myelocytes % Promyelocytes % Blast Cells % Plasma Cell % (Manual) Other Cells % Nucleated RBC % 0 Nucleated RBCs/100 WBC Differential Comment Diff Path Review Hypersegmented Neuts Atypical Lymphocytes Reactive Lymphocytes Smudge Cells Toxic Granulation Toxic Vacuolation Dohle Bodies Shama Rods Platelet Estimate ADEQUATE Plt Morphology Comment RBC Morphology NORM C+C Polychromasia Hypochromasia Poikilocytosis Basophilic Stippling Anisocytosis Microcytosis Macrocytosis Spherocytes Sickle Cells Target Cells Tear Drop Cells Ovalocytes Stomatocytes [place] Bodies [place] Cells Bite Cells Crenated Cell Acanthocytes (Spur) Rouleaux Schistocytes Sodium Potassium Chloride Carbon Dioxide Anion Gap BUN Creatinine Estim Creat Clear Calc Est GFR (MDRD) Af Amer Est GFR (MDRD) Non-Af BUN/Creatinine Ratio Glucose Lactic Acid Calcium Total Bilirubin AST ALT Alkaline Phosphatase B-Natriuretic Peptide 45.0 Total Protein Albumin Globulin Albumin/Globulin Ratio Vitamin D 25-Hydroxy Urine Color Yellow Urine Clarity Clear Urine pH 5.0 Ur Specific [place] 1.030 Urine Protein Negative Urine Glucose (UA) Normal Urine Ketones 5 H Urine Occult Blood Negative Urine Nitrite Negative Urine Bilirubin Negative Urine Urobilinogen Normal Ur Leukocyte Esterase 25 H Urine RBC 0 SEEN Urine WBC 0-5 SEEN Ur Squamous Epith Cells 0-5 SEEN Urine Bacteria 2+ Urine Mucus 0 SEEN POC Glucose 12/24/20 12/24/20 12/24/20 05:54 05:54 05:54 WBC 10.2 Corrected WBC RBC 4.10 L Hgb 11.9 L Hct 38.5 MCV 93.9 MCH 29.0 MCHC 30.9 L RDW Std Deviation 47.6 H RDW Coeff of [place] 13.7 Plt Count 295 MPV 10.1 Immature Gran % (Auto) 0.300 Neut % (Auto) 67.9 Lymph % (Auto) 19.5 [place] % (Auto) 9.3 Eos % (Auto) 2.3 Baso % (Auto) 0.7 Absolute Neuts (auto) 6.9 Absolute Lymphs (auto) 1.98 Total Counted Neutrophils % (Manual) Band Neutrophils % Lymphocytes % (Manual) Monocytes % (Manual) Eosinophils % (Manual) Basophils % (Manual) Metamyelocytes % Myelocytes % Promyelocytes % Blast Cells % Plasma Cell % (Manual) Other Cells % Nucleated RBC % 0 Nucleated RBCs/100 WBC Differential Comment Diff Path Review Hypersegmented Neuts Atypical Lymphocytes Reactive Lymphocytes Smudge Cells Toxic Granulation Toxic Vacuolation Dohle Bodies Shama Rods Platelet Estimate Plt Morphology Comment RBC Morphology Polychromasia Hypochromasia Poikilocytosis Basophilic Stippling Anisocytosis Microcytosis Macrocytosis Spherocytes Sickle Cells Target Cells Tear Drop Cells Ovalocytes Stomatocytes [place] Bodies Sunny Cells Bite Cells Crenated Cell Acanthocytes (Spur) Rouleaux Schistocytes Sodium 141 Potassium 4.2 Chloride 109 H Carbon Dioxide 25.0 Anion Gap 7 BUN 21 H Creatinine 1.00 Estim Creat Clear Calc 45.82 Est GFR (MDRD) Af Amer 69 Est GFR (MDRD) Non-Af 57 L BUN/Creatinine Ratio 21.0 H Glucose 144 H Lactic Acid Calcium 8.0 L Total Bilirubin AST ALT Alkaline Phosphatase B-Natriuretic Peptide Total Protein Albumin Globulin Albumin/Globulin Ratio Vitamin D 25-Hydroxy 22.4 Urine Color Urine Clarity Urine pH Ur Specific [place] Urine Protein Urine Glucose (UA) Urine Ketones Urine Occult Blood Urine Nitrite Urine Bilirubin Urine Urobilinogen Ur Leukocyte Esterase Urine RBC Urine WBC Ur Squamous Epith Cells Urine Bacteria Urine Mucus POC Glucose 12/24/20 12/24/20 06:51 11:17 WBC Corrected WBC RBC Hgb Hct MCV MCH MCHC RDW Std Deviation RDW Coeff of [place]aph[place] Plt Count MPV Immature Gran % (Auto) Neut % (Auto) Lymph % (Auto) [place] % (Auto) Eos % (Auto) Baso % (Auto) Absolute Neuts (auto) Absolute Lymphs (auto) Total Counted Neutrophils % (Manual) Band Neutrophils % Lymphocytes % (Manual) Monocytes % (Manual) Eosinophils % (Manual) Basophils % (Manual) Metamyelocytes % Myelocytes % Promyelocytes % Blast Cells % Plasma Cell % (Manual) Other Cells % Nucleated RBC % Nucleated RBCs/100 WBC Differential Comment Diff Path Review Hypersegmented Neuts Atypical Lymphocytes Reactive Lymphocytes Smudge Cells Toxic Granulation Toxic Vacuolation Dohle Bodies Shama Rods Platelet Estimate Plt Morphology Comment RBC Morphology Polychromasia Hypochromasia Poikilocytosis Basophilic Stippling Anisocytosis Microcytosis Macrocytosis Spherocytes Sickle Cells Target Cells Tear Drop Cells Ovalocytes Stomatocytes [place] Bodies [place] Cells Bite Cells Crenated Cell Acanthocytes (Spur) Rouleaux Schistocytes Sodium Potassium Chloride Carbon Dioxide Anion Gap BUN Creatinine Estim Creat Clear Calc Est GFR (MDRD) Af Amer Est GFR (MDRD) Non-Af BUN/Creatinine Ratio Glucose Lactic Acid Calcium Total Bilirubin AST ALT Alkaline Phosphatase B-Natriuretic Peptide Total Protein Albumin Globulin Albumin/Globulin Ratio Vitamin D 25-Hydroxy Urine Color Urine Clarity Urine pH Ur Specific [place] Urine Protein Urine Glucose (UA) Urine Ketones Urine Occult Blood Urine Nitrite Urine Bilirubin Urine Urobilinogen Ur Leukocyte Esterase Urine RBC Urine WBC Ur Squamous Epith Cells Urine Bacteria Urine Mucus POC Glucose 164 H 215 H Cardiology Labs/Tests 12/23/20 18:45: WBC Cancelled, Corrected WBC Cancelled, RBC Cancelled, Hgb Cancelled, Hct Cancelled, MCV Cancelled, MCH Cancelled, MCHC Cancelled, Plt Count Cancelled, MPV Cancelled, Immature Gran % (Auto) Cancelled, Neut % (Auto) Cancelled, Lymph % (Auto) Cancelled, [place] % (Auto) Cancelled, Eos % (Auto) Cancelled, Baso % (Auto) Cancelled, Absolute Neuts (auto) Cancelled, Total Counted Cancelled, Neutrophils % (Manual) Cancelled, Band Neutrophils % Cancelled, Lymphocytes % (Manual) Cancelled, Monocytes % (Manual) Cancelled, Eosinophils % (Manual) Cancelled, Basophils % (Manual) Cancelled, Metamyelocytes % Cancelled, Myelocytes % Cancelled, Promyelocytes % Cancelled, Blast Cells % Cancelled, Plasma Cell % (Manual) Cancelled, Other Cells % Cancelled, Nucleated RBC % Cancelled 12/23/20 19:51: Sodium 138, Potassium 4.8, Chloride 106, Carbon Dioxide 28.0, Anion Gap 4 L, BUN 26 H, Creatinine 1.10 H, Est GFR (MDRD) Af Amer 62, Est GFR (MDRD) Non-Af 51 L, BUN/Creatinine Ratio 23.6 H, Glucose 56 L, Calcium 9.0, Total Bilirubin 0.50 12/23/20 19:51: Lactic Acid 1.1 12/23/20 19:51: B-Natriuretic Peptide 45.0 12/23/20 19:51: WBC 14.4 H, RBC 4.47, Hgb 12.9, Hct 41.9, MCV 93.7, MCH 28.9, MCHC 30.8 L, Plt Count 280, MPV 10.5, Immature Gran % (Auto) 0.300, Neut % (Auto) 74.7 H, Lymph % (Auto) 14.1 L, [place] % (Auto) 8.9, Eos % (Auto) 1.4, Baso % (Auto) 0.6, Absolute Neuts (auto) 10.8 H, Nucleated RBC % 0 12/23/20 20:30: Urine Color Yellow, Urine Clarity Clear, Urine pH 5.0, Ur Specific [place] 1.030, Urine Protein Negative, Urine Glucose (UA) Normal, Urine Ketones 5 H, Urine Occult Blood Negative, Urine Nitrite Negative, Urine Bilirubin Negative, Urine Urobilinogen Normal, Ur Leukocyte Esterase 25 H, Urine RBC 0 SEEN, Urine WBC 0-5 SEEN 12/24/20 05:54: WBC 10.2, RBC 4.10 L, Hgb 11.9 L, Hct 38.5, MCV 93.9, MCH 29.0, MCHC 30.9 L, Plt Count 295, MPV 10.1, Immature Gran % (Auto) 0.300, Neut % (Auto) 67.9, Lymph % (Auto) 19.5, [place] % (Auto) 9.3, Eos % (Auto) 2.3, Baso % (Auto) 0.7, Absolute Neuts (auto) 6.9, Nucleated RBC % 0 12/24/20 05:54: Sodium 141, Potassium 4.2, Chloride 109 H, Carbon Dioxide 25.0, Anion Gap 7, BUN 21 H, Creatinine 1.00, Est GFR (MDRD) Af Amer 69, Est GFR (MDRD) Non-Af 57 L, BUN/Creatinine Ratio 21.0 H, Glucose 144 H, Calcium 8.0 L EKG: Normal sinus rhythm. ECHO: Overall LV systolic function preserved ejection fraction 55-60%, mild concentric left ventricle hypertrophy, mild left atrial enlargement Mild RV dilatation, RV systolic pressure calculated 42 mmHg.(No significant change from prior echocardiogram.) Radiography Diagnostic Testing: Radiology Impression Tibia/Fibula X-Ray 12/23/20 17:49 IMPRESSION: Diffuse soft tissue swelling. Electronically Signed: Sonal Hernandez MD at 19:20 EDT Tel , Service support , Tibia/Fibula X-Ray 12/23/20 18:26 IMPRESSION: Soft tissue swelling. Electronically Signed: Sonal Hernandez MD at 19:17 EDT Tel , Service support , Echocardiogram 12/24/20 08:49 Interpretation Summary Mild concentric left ventricular hypertrophy. The estimated ejection fraction is EF 55-60 %. Mild LAE Mild Pulmonary Hypertension with RVSP 42 mmhg Ordering Physician: Mack Wilkins Referring Physician: Shiv Weiner Performed By: Mary Arias, MERI, RVT
--- NOTE | 2020-12-24 13:12 | PCM.DC ---
Discharge Instructions Diet Discharge Diet: 8 Cup Fluid Restriction Activity Discharge Activity: Return to Normal Activity Dressing / Incision Call your doctor if your incision/area has: Continuous Slow Oozing and Increased Redness Call your doctor if you observe: Fever of 101 or Higher Cleanse incision/area with: Soap & Water and Keep Dressing Clean & Dry Follow Up Care Please Follow Up With: Wound Care When: 1 week Test Results: Test results from this visit will be discussed in further detail at your follow-up appointment, if applicable. Discharge Plan Admission Admit Date/Time: 12/23/20 22:57 Attending Provider: Mack Wilkins Primary Care Provider: Shiv Weiner Consulting Providers: Andrew Topete Discharge Orders/Prescriptions Prescriptions: New hydrochlorothiazide 25 mg tablet 25 mg PO DAILY Qty: 30 RF: 0 Continued pramipexole 1 mg tablet 2 mg PO QHS RF: 0 meloxicam 15 mg tablet 15 mg PO DAILY RF: 0 paroxetine HCl 20 mg tablet 20 mg PO DAILY RF: 0 hydroxyzine HCl 25 mg tablet 25 mg PO TID PRN (Reason: Anxiety) RF: 0 ergocalciferol (vitamin D2) [Vitamin D2] 1,250 mcg (50,000 unit) capsule 1,250 mcg PO QWEEK RF: 0 lisinopril 40 mg tablet 40 mg PO DAILY RF: 0 levothyroxine 112 mcg tablet 137 mcg PO DAILY RF: 0 zolpidem 12.5 mg tablet,ext release multiphase 12.5 mg PO QHS RF: 0 Changed insulin aspart U-100 [Novolog Flexpen U-100 Insulin] 100 unit/mL (3 mL) insulin pen 10 unit SUBCUT TID Qty: 0 RF: 0 Tresiba FlexTouch U-100 100 unit/mL (3 mL) insulin pen 20 unit SUBCUT BID Qty: 0 RF: 0 Discontinued amlodipine 10 mg tablet 10 mg PO DAILY RF: 0 Referrals / Follow Up: Sb Honeycutt MD [STAFF PHYSICIAN] - Within 2 Weeks Shiv Weiner MD [Primary Care Provider] - Within 1 Week (will need set up for outpatient polysomnogram) Disposition Disposition (needs filled in before D/C Order can be placed): Home, Self Care
--- NOTE | 2020-12-24 13:18 | DS.PCM_ITS ---
Providers Date of Admission: 12/23/20 Primary Care Physician: Dr. Shiv Weiner MD Consultations 12/23/20 22:57 Consult: Onc/Wound/chemical dependency counselor Routine Comment: Reason for Consult:: Bilateral lymphedema and venous stasis. 12/24/20 07:58 Consult: Onc/Wound/chemical dependency counselor Routine Comment: 12/24/20 08:49 Consult: Cardiology Routine Consulting Provider: Andrew Topete Reason for Consult: abnormal echo EMERGENT Consult: No MD Notified: Yes Date Notified: 12/24/20 Time Notified: 08:52 Method of Notification: Text Reason For Visit: VENOUS STASIS Diagnosis Discharge Diagnosis (1) Lymphedema of both lower extremities: Status: Acute Code(s): I89.0 - Lymphedema, not elsewhere classified (2) Abnormal echocardiogram: Status: Acute Code(s): R93.1 - Abnormal findings on diagnostic imaging of heart and coronary circulation Medications at Discharge Home Medications ergocalciferol (vitamin D2) [Vitamin D2] 1,250 mcg PO QWEEK 12/23/20 hydroxyzine HCl 25 mg PO TID PRN 12/23/20 levothyroxine 137 mcg PO DAILY 12/23/20 lisinopril 40 mg PO DAILY 12/23/20 meloxicam 15 mg PO DAILY 12/23/20 paroxetine HCl 20 mg PO DAILY 12/23/20 pramipexole 2 mg PO QHS 12/23/20 zolpidem 12.5 mg PO QHS 12/23/20 Tresiba FlexTouch U-100 20 unit SUBCUT BID #0 ml 12/24/20 hydrochlorothiazide 25 mg PO DAILY #30 tab 12/24/20 insulin aspart U-100 [Novolog Flexpen U-100 Insulin] 10 unit SUBCUT TID #0 ml 12/24/20 Hospital Course Operations None Procedures 2-D Echocardiogram Summary of Care Provided Minutes Spent on Discharge: 40 Hospital Course: 75-year-old white female presents with chronic lower extremity edema and redness. It has been weeping and crusting. Presented to the emergency room and there is concern for cellulitis and patient was started on antibiotics. I reviewed her legs and is consistent with venous stasis haley matitis with seeping and felt there is no active infection and discontinue the antibiotics. I did review patient had echocardiogram on Georgette 21 that showed LVH concentric. Cardiology felt the patient could be discharged with further follow-up. Patient has no episodes of syncope nor any family history of premature cardiac so extremely unlikely that this is hypertrophic obstructive cardiomyopathy. She did have echocardiogram performed here that showed an EF of 55 to 60%, mild left atrial enlargement, mild concentric LVH and mild pulmonary hypertension with a right ventricular systolic pressure of 42 mmHg. For the patient's lower extremity edema I feel is probably multifactorial due to the patient's amlodipine, which he takes for hypertension, plus pulmonary hypertension. Recommendations are to discontinue the amlodipine and patient will be started on HCTZ for blood pressure control in addition to her lisinopril. And also to have a polysomnogram to evaluate to see if that may be an etiology of her pulmonary hypertension. Patient will continue with wound care as well for lower extremities. But once again no evidence of any bilateral cellulitis or even unilateral. Patient advised that because of the wounds that she could be susceptible to an infection and if she were to develop changes consistent with infection, including redness fever chills to notify your physician immediately. Weight / BMI Weight Weight: 120.7 kg Body Mass Index (BMI) 41.6 ABG / Lab / Microbiology Data Result Diagrams: 12/24/20 05:54 12/24/20 05:54 Laboratory: Laboratory Results - last 24 hr 12/23/20 12/23/20 12/23/20 18:45 19:51 19:51 WBC Cancelled Corrected WBC Cancelled RBC Cancelled Hgb Cancelled Hct Cancelled MCV Cancelled MCH Cancelled MCHC Cancelled RDW Std Deviation Cancelled RDW Coeff of Daphney Cancelled Plt Count Cancelled MPV Cancelled Immature Gran % (Auto) Cancelled Neut % (Auto) Cancelled Lymph % (Auto) Cancelled [place] % (Auto) Cancelled Eos % (Auto) Cancelled Baso % (Auto) Cancelled Absolute Neuts (auto) Cancelled Absolute Lymphs (auto) Cancelled Total Counted Cancelled Neutrophils % (Manual) Cancelled Band Neutrophils % Cancelled Lymphocytes % (Manual) Cancelled Monocytes % (Manual) Cancelled Eosinophils % (Manual) Cancelled Basophils % (Manual) Cancelled Metamyelocytes % Cancelled Myelocytes % Cancelled Promyelocytes % Cancelled Blast Cells % Cancelled Plasma Cell % (Manual) Cancelled Other Cells % Cancelled Nucleated RBC % Cancelled Nucleated RBCs/100 WBC Cancelled Differential Comment Cancelled Diff Path Review Cancelled Hypersegmented Neuts Cancelled Atypical Lymphocytes Cancelled Reactive Lymphocytes Cancelled Smudge Cells Cancelled Toxic Granulation Cancelled Toxic Vacuolation Cancelled Dohle Bodies Cancelled Shama Rods Cancelled Platelet Estimate Cancelled Plt Morphology Comment Cancelled RBC Morphology Cancelled Polychromasia Cancelled Hypochromasia Cancelled Poikilocytosis Cancelled Basophilic Stippling Cancelled Anisocytosis Cancelled Microcytosis Cancelled Macrocytosis Cancelled Spherocytes Cancelled Sickle Cells Cancelled Target Cells Cancelled Tear Drop Cells Cancelled Ovalocytes Cancelled Stomatocytes Cancelled Smallwood-Towson Bodies Cancelled Steen Cells Cancelled Bite Cells Cancelled Crenated Cell Cancelled Acanthocytes (Spur) Cancelled Rouleaux Cancelled Schistocytes Cancelled Sodium 138 Potassium 4.8 Chloride 106 Carbon Dioxide 28.0 Anion Gap 4 L BUN 26 H Creatinine 1.10 H Estim Creat Clear Calc 41.65 Est GFR (MDRD) Af Amer 62 Est GFR (MDRD) Non-Af 51 L BUN/Creatinine Ratio 23.6 H Glucose 56 L Lactic Acid 1.1 Calcium 9.0 Total Bilirubin 0.50 AST 34 ALT 19 Alkaline Phosphatase 147 H B-Natriuretic Peptide Total Protein 7.7 Albumin 3.1 L Globulin 4.6 H Albumin/Globulin Ratio 0.7 L Vitamin D 25-Hydroxy Urine Color Urine Clarity Urine pH Ur Specific [place] Urine Protein Urine Glucose (UA) Urine Ketones Urine Occult Blood Urine Nitrite Urine Bilirubin Urine Urobilinogen Ur Leukocyte Esterase Urine RBC Urine WBC Ur Squamous Epith Cells Urine Bacteria Urine Mucus POC Glucose 12/23/20 12/23/20 12/23/20 19:51 19:51 20:30 WBC 14.4 H Corrected WBC RBC 4.47 Hgb 12.9 Hct 41.9 MCV 93.7 MCH 28.9 MCHC 30.8 L RDW Std Deviation 47.2 H RDW Coeff of Daphney 13.6 Plt Count 280 MPV 10.5 Immature Gran % (Auto) 0.300 Neut % (Auto) 74.7 H Lymph % (Auto) 14.1 L [place] % (Auto) 8.9 Eos % (Auto) 1.4 Baso % (Auto) 0.6 Absolute Neuts (auto) 10.8 H Absolute Lymphs (auto) 2.03 Total Counted Neutrophils % (Manual) Band Neutrophils % Lymphocytes % (Manual) Monocytes % (Manual) Eosinophils % (Manual) Basophils % (Manual) Metamyelocytes % Myelocytes % Promyelocytes % Blast Cells % Plasma Cell % (Manual) Other Cells % Nucleated RBC % 0 Nucleated RBCs/100 WBC Differential Comment Diff Path Review Hypersegmented Neuts Atypical Lymphocytes Reactive Lymphocytes Smudge Cells Toxic Granulation Toxic Vacuolation Dohle Bodies Shama Rods Platelet Estimate ADEQUATE Plt Morphology Comment RBC Morphology NORM C+C Polychromasia Hypochromasia Poikilocytosis Basophilic Stippling Anisocytosis Microcytosis Macrocytosis Spherocytes Sickle Cells Target Cells Tear Drop Cells Ovalocytes Stomatocytes [place]-Towson Bodies Steen Cells Bite Cells Crenated Cell Acanthocytes (Spur) Rouleaux Schistocytes Sodium Potassium Chloride Carbon Dioxide Anion Gap BUN Creatinine Estim Creat Clear Calc Est GFR (MDRD) Af Amer Est GFR (MDRD) Non-Af BUN/Creatinine Ratio Glucose Lactic Acid Calcium Total Bilirubin AST ALT Alkaline Phosphatase B-Natriuretic Peptide 45.0 Total Protein Albumin Globulin Albumin/Globulin Ratio Vitamin D 25-Hydroxy Urine Color Yellow Urine Clarity Clear Urine pH 5.0 Ur Specific [place] 1.030 Urine Protein Negative Urine Glucose (UA) Normal Urine Ketones 5 H Urine Occult Blood Negative Urine Nitrite Negative Urine Bilirubin Negative Urine Urobilinogen Normal Ur Leukocyte Esterase 25 H Urine RBC 0 SEEN Urine WBC 0-5 SEEN Ur Squamous Epith Cells 0-5 SEEN Urine Bacteria 2+ Urine Mucus 0 SEEN POC Glucose 12/24/20 12/24/20 12/24/20 05:54 05:54 05:54 WBC 10.2 Corrected WBC RBC 4.10 L Hgb 11.9 L Hct 38.5 MCV 93.9 MCH 29.0 MCHC 30.9 L RDW Std Deviation 47.6 H RDW Coeff of Daphney 13.7 Plt Count 295 MPV 10.1 Immature Gran % (Auto) 0.300 Neut % (Auto) 67.9 Lymph % (Auto) 19.5 [place] % (Auto) 9.3 Eos % (Auto) 2.3 Baso % (Auto) 0.7 Absolute Neuts (auto) 6.9 Absolute Lymphs (auto) 1.98 Total Counted Neutrophils % (Manual) Band Neutrophils % Lymphocytes % (Manual) Monocytes % (Manual) Eosinophils % (Manual) Basophils % (Manual) Metamyelocytes % Myelocytes % Promyelocytes % Blast Cells % Plasma Cell % (Manual) Other Cells % Nucleated RBC % 0 Nucleated RBCs/100 WBC Differential Comment Diff Path Review Hypersegmented Neuts Atypical Lymphocytes Reactive Lymphocytes Smudge Cells Toxic Granulation Toxic Vacuolation Dohle Bodies Shama Rods Platelet Estimate Plt Morphology Comment RBC Morphology Polychromasia Hypochromasia Poikilocytosis Basophilic Stippling Anisocytosis Microcytosis Macrocytosis Spherocytes Sickle Cells Target Cells Tear Drop Cells Ovalocytes Stomatocytes [place]-Towson Bodies Sunny Cells Bite Cells Crenated Cell Acanthocytes (Spur) Rouleaux Schistocytes Sodium 141 Potassium 4.2 Chloride 109 H Carbon Dioxide 25.0 Anion Gap 7 BUN 21 H Creatinine 1.00 Estim Creat Clear Calc 45.82 Est GFR (MDRD) Af Amer 69 Est GFR (MDRD) Non-Af 57 L BUN/Creatinine Ratio 21.0 H Glucose 144 H Lactic Acid Calcium 8.0 L Total Bilirubin AST ALT Alkaline Phosphatase B-Natriuretic Peptide Total Protein Albumin Globulin Albumin/Globulin Ratio Vitamin D 25-Hydroxy 22.4 Urine Color Urine Clarity Urine pH Ur Specific [place] Urine Protein Urine Glucose (UA) Urine Ketones Urine Occult Blood Urine Nitrite Urine Bilirubin Urine Urobilinogen Ur Leukocyte Esterase Urine RBC Urine WBC Ur Squamous Epith Cells Urine Bacteria Urine Mucus POC Glucose 12/24/20 12/24/20 06:51 11:17 WBC Corrected WBC RBC Hgb Hct MCV MCH MCHC RDW Std Deviation RDW Coeff of Daphney Plt Count MPV Immature Gran % (Auto) Neut % (Auto) Lymph % (Auto) [place] % (Auto) Eos % (Auto) Baso % (Auto) Absolute Neuts (auto) Absolute Lymphs (auto) Total Counted Neutrophils % (Manual) Band Neutrophils % Lymphocytes % (Manual) Monocytes % (Manual) Eosinophils % (Manual) Basophils % (Manual) Metamyelocytes % Myelocytes % Promyelocytes % Blast Cells % Plasma Cell % (Manual) Other Cells % Nucleated RBC % Nucleated RBCs/100 WBC Differential Comment Diff Path Review Hypersegmented Neuts Atypical Lymphocytes Reactive Lymphocytes Smudge Cells Toxic Granulation Toxic Vacuolation Dohle Bodies Shama Rods Platelet Estimate Plt Morphology Comment RBC Morphology Polychromasia Hypochromasia Poikilocytosis Basophilic Stippling Anisocytosis Microcytosis Macrocytosis Spherocytes Sickle Cells Target Cells Tear Drop Cells Ovalocytes Stomatocytes Smallwood-Towson Bodies Steen Cells Bite Cells Crenated Cell Acanthocytes (Spur) Rouleaux Schistocytes Sodium Potassium Chloride Carbon Dioxide Anion Gap BUN Creatinine Estim Creat Clear Calc Est GFR (MDRD) Af Amer Est GFR (MDRD) Non-Af BUN/Creatinine Ratio Glucose Lactic Acid Calcium Total Bilirubin AST ALT Alkaline Phosphatase B-Natriuretic Peptide Total Protein Albumin Globulin Albumin/Globulin Ratio Vitamin D 25-Hydroxy Urine Color Urine Clarity Urine pH Ur Specific [place] Urine Protein Urine Glucose (UA) Urine Ketones Urine Occult Blood Urine Nitrite Urine Bilirubin Urine Urobilinogen Ur Leukocyte Esterase Urine RBC Urine WBC Ur Squamous Epith Cells Urine Bacteria Urine Mucus POC Glucose 164 H 215 H Radiography Diagnostic Testing: Radiology Impression Tibia/Fibula X-Ray 12/23/20 17:49 IMPRESSION: Diffuse soft tissue swelling. Electronically Signed: Sonal Hernandez MD at 19:20 EDT Tel , Service support , Tibia/Fibula X-Ray 12/23/20 18:26 IMPRESSION: Soft tissue swelling. Electronically Signed: Sonal Hernandez MD at 19:17 EDT Tel , Service support , Echocardiogram 12/24/20 08:49 Interpretation Summary Mild concentric left ventricular hypertrophy. The estimated ejection fraction is EF 55-60 %. Mild LAE Mild Pulmonary Hypertension with RVSP 42 mmhg Ordering Physician: Mack Wilkins Referring Physician: Shiv Weiner Performed By: Mary Arias, RDCS, RVT D/C Instructions Discharge Diet: 8 Cup Fluid Restriction Call your doctor if your incision/area has: Continuous Slow Oozing and Increased Redness Call your doctor if you observe: Fever of 101 or Higher Cleanse incision/area with: Soap & Water and Keep Dressing Clean & Dry Please Follow Up With: Wound Care When: 1 week Meaningful Use Info Meaningful Use Diagnoses (Choose all that apply): None applicable Discharge Plan Admission Admit Date/Time: 12/23/20 22:57 Attending Provider: Mack Wilkins Primary Care Provider: Shiv Weiner Consulting Providers: Andrew Topete Discharge Orders/Prescriptions Prescriptions: New hydrochlorothiazide 25 mg tablet 25 mg PO DAILY Qty: 30 RF: 0 Continued pramipexole 1 mg tablet 2 mg PO QHS RF: 0 meloxicam 15 mg tablet 15 mg PO DAILY RF: 0 paroxetine HCl 20 mg tablet 20 mg PO DAILY RF: 0 hydroxyzine HCl 25 mg tablet 25 mg PO TID PRN (Reason: Anxiety) RF: 0 ergocalciferol (vitamin D2) [Vitamin D2] 1,250 mcg (50,000 unit) capsule 1,250 mcg PO QWEEK RF: 0 lisinopril 40 mg tablet 40 mg PO DAILY RF: 0 levothyroxine 112 mcg tablet 137 mcg PO DAILY RF: 0 zolpidem 12.5 mg tablet,ext release multiphase 12.5 mg PO QHS RF: 0 Changed insulin aspart U-100 [Novolog Flexpen U-100 Insulin] 100 unit/mL (3 mL) insulin pen 10 unit SUBCUT TID Qty: 0 RF: 0 Tresiba FlexTouch U-100 100 unit/mL (3 mL) insulin pen 20 unit SUBCUT BID Qty: 0 RF: 0 Discontinued amlodipine 10 mg tablet 10 mg PO DAILY RF: 0 Referrals / Follow Up: Sb Honeycutt MD [STAFF PHYSICIAN] - Within 2 Weeks Shiv Weiner MD [Primary Care Provider] - Within 1 Week (will need set up for outpatient polysomnogram) Disposition Disposition (needs filled in before D/C Order can be placed): Home, Self Care Charges/Coding Visit Charges OBSV E&M: 21351 Observation care discharge
--- NOTE | 2020-12-24 13:20 | CASEMGMT ---
Spoke with via tc who would like pt to follow up at the [facility]. RN CM to pt room and provided pamphlet for the [facility]. Pt denied further needs at this time.
== END 2020-12-24 14:55 | disposition home or self-care (01) ==
LOC: ED 21:45 → MS3 12-24 05:16
PROVIDERS: Admitting Provider Hospitalist; Emergency Provider Emergency Medicine; PCP Family Medicine
DX: I89.0 Lymphedema, not elsewhere classified (principal); I87.8 Other specified disorders of veins; E11.9 Type 2 diabetes mellitus without complications; M19.90 Unspecified osteoarthritis, unspecified site; G89.29 Other chronic pain; E78.2 Mixed hyperlipidemia; F32.9 Major depressive disorder, single episode, unspecified; E03.9 Hypothyroidism, unspecified; I10 Essential (primary) hypertension; Z79.899 Other long term (current) drug therapy; Z79.4 Long term (current) use of insulin; E55.9 Vitamin D deficiency, unspecified; F41.9 Anxiety disorder, unspecified; G25.81 Restless legs syndrome; M06.9 Rheumatoid arthritis, unspecified; R93.1 Abnormal findings on diagnostic imaging of heart and coronary circulation
CPT/HCPCS: 36415; 73590; 80048; 80053; 81001; 82306; 82962; 83605; 83880; 85025; 87040; 87077; 87186; 93005; 93308; 96365; 96367; 96372; 97162; 97166; 97802; 99218; 99284; J7030; J7040; A4216; G0378

== ENCOUNTER 2021-01-08 11:30 | Outpatient (RCR) | payer MEDICARE, SELFPAY ==
[2020-12-23 22:39] VITALS: BMI 41.6
[2020-12-29 10:20] VITALS: BP 193/86; PULSE 88; RESP 18; TEMP 36.7; BMI 37.5
--- NOTE | 2020-12-29 13:03 | PCM.WC.HP ---
History of Present Illness Date of Service: 12/29/20 Chief Complaint: Bilateral lower extremity swelling, edema, and lymphedema. History of Wound: This is a 75-year-old female who presents with swelling and edema in her lower extremities bilaterally. She states that her lower extremities have been edematous for many years, having worsened only within the last several months. Her condition worsened approximately 1 week ago, prompting her to seek medical attention in the [facility] Emergency Department. At the time of her presentation, severe swelling, edema, and lymphedema were noted in her lower extremities, as well as erythema, suspected to be cellulitic in nature. She was hospitalized overnight, and subsequently discharged with instructions to follow-up at the [facility]. She presents today for further evaluation and management. She has been using Madhu wraps for compression. She is not very active, typically sitting idly for many hours each day. She sleeps in a semi-upright position, in a lift chair. At times, she has noted exudative drainage from the pores of her distal lower extremities. She experiences pain in her lower extremities associated with the swelling and edema. The erythematous changes in the skin of her legs has diminished moderately since her recent overnight hospital stay. Patient suffers from multiple pre-existing medical conditions, including diabetes mellitus, rheumatoid arthritis, hyperlipidemia, hypertension, and hypothyroidism. [facility] Medical History (Updated 12/29/20 @ 13:[address] Sandeep Mcmahon MD) Anemia Arthritis Chronic pain Chronic venous insufficiency Combined hyperlipidemia Depression Diabetes Diabetes mellitus Hyperlipidemia Hypertension Hypertension Hypothyroidism Hypothyroidism Leg edema Leg swelling Non-smoker Rheumatoid arthritis Rheumatoid arthritis Home Medications ergocalciferol (vitamin D2) [Vitamin D2] 1,250 mcg PO QWEEK 12/23/20 [History Last Taken Unknown] hydroxyzine HCl 25 mg PO TID PRN 12/23/20 [History Last Taken Unknown] levothyroxine 137 mcg PO DAILY 12/23/20 [History Last Taken Unknown] lisinopril 40 mg PO DAILY 12/23/20 [History Last Taken Unknown] meloxicam 15 mg PO DAILY 12/23/20 [History Last Taken Unknown] paroxetine HCl 20 mg PO DAILY 12/23/20 [History Last Taken Unknown] pramipexole 2 mg PO QHS 12/23/20 [History Last Taken Unknown] zolpidem 12.5 mg PO QHS 12/23/20 [History Last Taken Unknown] Tresiba FlexTouch U-100 20 unit SUBCUT BID #0 ml 12/24/20 [Rx Last Taken Unknown] hydrochlorothiazide 25 mg PO DAILY #30 tab 12/24/20 [Rx Last Taken Unknown] insulin aspart U-100 [Novolog Flexpen U-100 Insulin] 10 unit SUBCUT TID #0 ml 12/24/20 [Rx Last Taken Unknown] Allergy/AdvReac Type Severity Reaction Status Date / Time aspirin [From Percodan] Allergy Other Verified 12/23/20 17:12 oxycodone [From Percodan] Allergy Other Verified 12/23/20 17:12 vancomycin Allergy Rash Verified 12/23/20 21:40 Family History Other Cancer Heart disease Surgical History History of appendectomy History of cholecystectomy History of lung biopsy Social History Smoking Status: Never smoker Vital Signs Vital Signs Vital Signs: 12/29/20 10:20 Temperature 98.0 F Temperature Source Temporal Pulse Rate 88 Respiratory Rate 18 Blood Pressure 193/86 H Blood Pressure Mean 121 Weight Weight: 240 lb Body Mass Index (BMI) 37.5 Physical Exam Const alert, oriented x3, no apparent distress and well nourished Constitutional Narrative: The patient is obese. General Appearance: cooperative, comfortable and well developed Orientation / Consciousness: awake, oriented to person, oriented to place and oriented to time HEENT normocephalic and head/scalp atraumatic Head and Scalp: normal to inspection, normocephalic and atraumatic External Ear: external ears normal Eyes PERRL and EOMs intact bilaterally General Eye: normal appearance of both eyes Resp normal respiratory effort, normal air movement, no retractions and no use of accessory muscles Effort and Inspection: able to speak in complete sentences Extremity no calf tenderness Extremity Narrative: There are no open wounds or ulcerations in the patient's lower extremities bilaterally. However, there is significant swelling, edema, and lymphedema bilaterally. Circumference measurements are documented elsewhere. There is an associated inflammatory erythema in the gaiter areas bilaterally, as well as scattered scaly dermatitis. General Extremity: Negative for clubbing or cyanosis Neuro oriented x3, CN's II-XII intact bilaterally and moves all extremities Sensorium / Orientation: awake, alert, oriented to person, oriented to place and oriented to time Psych Appearance: grossly normal and appropriate Attitude: calm Activity / Motor Behavior: appropriate eye contact Speech: normal speech Mood & Affect: euthymic mood Thought Process: normal thought process Thought Content: normal thought content Attention / Concentration: attention grossly intact Memory / Cognition: cognition grossly intact Debridement Note Debridement Note Post-Debridement Measurements and Additional Note: Post-Debridement Measurements/Treatment - Nurse 1 - General Ulcer Assessment Start: 12/29/20 10:20 Freq: Status: Active Protocol: CHETAN Activity Type Activity Date Activity User E-Sign Co-Sign Detail Recorded Client Recorded Date Recorded By Document 12/29/20 10:20 ANCA [id number] 12/29/20 10:29 ANCA 12/29/20 10:20 - Today's Visit Information Type of service Initial Visit Arrival Mode Ambulatory Transfer Assistance None Patient Identification Verified (Name & Yes ) Patient Requires Transmission-Based No Precautions Safety Precautions NA Finger Stick Blood Sugar(mg/dl) (if 147 indicated): Blood Sugar Stated by Patient Height and Weight Height 5 ft 7 in Weight 240 lb Weight in Pounds 240.0 lbs Body Mass Index (BMI) 37.5 BMI Classification Obese BSA - Elaina 2.18 Vital Signs Temperature (97.8 F-99.1 F) 98.0 F Temperature Source Temporal Pulse Rate (60-100) 88 Respiratory Rate (12-18) 18 Blood Pressure (90/60-120/80) 193/86 H Blood Pressure Mean 121 History Since Last Visit- (Skip if this is Patient's initial visit) Have you changed medications since your No last visit? Any new allergies or adverse reactions No Had a fall/change in ADL's that may No increase risk of falls Signs or symptoms of abuse and/or No neglect since last visit Have you been in the hospital since your No last visit? Has dressing in place as prescribed Yes Has compression in place as prescribed N/A Has offloadiing in place as prescribed N/A Experienced any changes in pain level or No management Pain Scale: 0-10 Numeric Is Patient Pain Free? Yes - Nurse 1 - General Ulcer Measurement Start: 12/29/20 10:20 Freq: Status: Active Protocol: Activity Type Activity Date Activity User E-Sign Co-Sign Detail Recorded Client Recorded Date Recorded By Document 12/29/20 10:20 ANCA [id number] 12/29/20 10:29 PL 12/29/20 10:20 Wound Center Nurse 1 Right Calf (cm) 49.5 Point of measurement (cm from the medial 26 instep) Right Ankle (cm) 34 Point of Measurement (cm from the medial 13 instep) Left Calf (cm) 55 Point of measurement (cm from the medial 27 instep) Left Ankle (cm) 38 Point of Measurement (cm from the medial 14 instep) No debridement was completed: No debridement was completed today Assessment/Plan Assessment/Plan (1) Leg swelling: CODE(S): M79.89 - Other specified soft tissue disorders (2) Leg edema: CODE(S): R60.0 - Localized edema (3) Chronic venous insufficiency: CODE(S): I87.2 - Venous insufficiency (chronic) (peripheral) (4) Lymphedema of both lower extremities: CODE(S): I89.0 - Lymphedema, not elsewhere classified (5) Venous stasis: CODE(S): I87.8 - Other specified disorders of veins (6) Diabetes mellitus: CODE(S): E11.9 - Type 2 diabetes mellitus without complications (7) Rheumatoid arthritis: CODE(S): M06.9 - Rheumatoid arthritis, unspecified (8) Hyperlipidemia: CODE(S): E78.5 - Hyperlipidemia, unspecified (9) Hypertension: CODE(S): I10 - Essential (primary) hypertension (10) Hypothyroidism: CODE(S): E03.9 - Hypothyroidism, unspecified PLAN: This is a 75-year-old female who presents with a longstanding history of swelling, edema, and lymphedema in her lower extremities bilaterally. As explained to the patient in detail, it appears as though most, if not all, of her symptoms are related to her lifestyle and habits. She has been encouraged to sleep in a position whereby her lower extremities are at heart level, or higher. Leg elevation has also been recommended during daytime hours. As explained to the patient, her legs should be at heart level, or higher, as much as possible. Prolonged idle sitting has been discouraged. Activity has been encouraged. Weight optimization has also been recommended. Patient has been encouraged to optimize her glycemic control and to optimize nutritional intake. We are to arrange for assessment of lower extremity arterial status, by means of a noninvasive study. We are to implement compression to the patient's lower extremities by means of Unna boots, which will be applied today, and then twice weekly. Patient is to return in 1 week for reassessment. Total time: 65 minutes.
[2021-01-01 12:55] VITALS: TEMP 36.8; BMI 37.5
[2021-01-05 10:44] VITALS: BP 161/88; PULSE 78; TEMP 35.8; BMI 37.5
--- NOTE | 2021-01-05 12:04 | HP.PCM_ITS ---
History of Present Illness Date of Service: 01/05/21 Chief Complaint: Bilateral lower extremity swelling, edema, and lymphedema. History of Wound: This is a 75-year-old female who presented with swelling and edema in her lower extremities bilaterally. She stateed that her lower extremities have been edematous for many years, having worsened only within the last several months. Her condition worsened approximately 1 week ago, prompting her to seek medical attention in the [facility] Emergency Department. At the time of her presentation, severe swelling, edema, and lymphedema were noted in her lower extremities, as well as erythema, suspected to be cellulitic in nature. She was hospitalized overnight, and subsequently discharged with instructions to follow-up at the [facility]. She presents today for further evaluation and management. She has been using Madhu wraps for compression. She is not very active, typically sitting idly for many hours each day. She sleeps in a semi-upright position, in a lift chair. At times, she has noted exudative drainage from the pores of her distal lower extremities. She experiences pain in her lower extremities associated with the swelling and edema. The erythematous changes in the skin of her legs has diminished moderately since her recent overnight hospital stay. Patient suffers from multiple pre-existing medical conditions, including diabetes mellitus, rheumatoid arthritis, hyperlipidemia, hypertension, and hypothyroidism. [facility]LY [facility], [facility] Medical History (Updated 12/29/20 @ 13:[address] Sandeep Mcmahon MD) Anemia Arthritis Chronic pain Chronic venous insufficiency Combined hyperlipidemia Depression Diabetes Diabetes mellitus Hyperlipidemia Hypertension Hypertension Hypothyroidism Hypothyroidism Leg edema Leg swelling Non-smoker Rheumatoid arthritis Rheumatoid arthritis Home Medications ergocalciferol (vitamin D2) [Vitamin D2] 1,250 mcg PO QWEEK 12/23/20 [History Last Taken Unknown] hydroxyzine HCl 25 mg PO TID PRN 12/23/20 [History Last Taken Unknown] levothyroxine 137 mcg PO DAILY 12/23/20 [History Last Taken Unknown] lisinopril 40 mg PO DAILY 12/23/20 [History Last Taken Unknown] meloxicam 15 mg PO DAILY 12/23/20 [History Last Taken Unknown] paroxetine HCl 20 mg PO DAILY 12/23/20 [History Last Taken Unknown] pramipexole 2 mg PO QHS 12/23/20 [History Last Taken Unknown] zolpidem 12.5 mg PO QHS 12/23/20 [History Last Taken Unknown] Tresiba FlexTouch U-100 20 unit SUBCUT BID #0 ml 12/24/20 [Rx Last Taken Unknown] hydrochlorothiazide 25 mg PO DAILY #30 tab 12/24/20 [Rx Last Taken Unknown] insulin aspart U-100 [Novolog Flexpen U-100 Insulin] 10 unit SUBCUT TID #0 ml 12/24/20 [Rx Last Taken Unknown] Allergy/AdvReac Type Severity Reaction Status Date / Time aspirin [From Percodan] Allergy Other Verified 12/23/20 17:12 oxycodone [From Percodan] Allergy Other Verified 12/23/20 17:12 vancomycin Allergy Rash Verified 12/23/20 21:40 Family History Other Cancer Heart disease Surgical History History of appendectomy History of cholecystectomy History of lung biopsy Social History Smoking Status: Never smoker Vital Signs Vital Signs Vital Signs: 01/05/21 10:44 Temperature 96.5 F L Temperature Source Temporal Pulse Rate 78 Blood Pressure 161/88 H Blood Pressure Mean 112 Blood Pressure Source Monitor Blood Pressure Position Semi-Fowlers Blood Pressure Location Right Arm Weight Weight: 240 lb Body Mass Index (BMI) 37.5 Physical Exam Const alert, oriented x3, no apparent distress and well nourished General Appearance: cooperative, comfortable and well developed Orientation / Consciousness: awake, oriented to person, oriented to place and oriented to time HEENT normocephalic and head/scalp atraumatic Head and Scalp: normal to inspection, normocephalic and atraumatic External Ear: external ears normal Eyes PERRL and EOMs intact bilaterally General Eye: normal appearance of both eyes Resp normal respiratory effort, normal air movement, no retractions and no use of accessory muscles Effort and Inspection: able to speak in complete sentences Extremity no calf tenderness Extremity Narrative: The swelling and edema in the patient's lower extremities is markedly improved. Circumference measurements at calf and ankle levels are significantly diminished. There are no nga open wounds or ulcerations. However, mild dermatitic changes are noted in the gaiter areas bilaterally. General Extremity: Negative for clubbing or cyanosis Skin Wound Narrative: There are no open wounds or ulcerations in the legs bilaterally. Neuro oriented x3, CN's II-XII intact bilaterally and moves all extremities Psych Appearance: grossly normal and appropriate Attitude: calm Activity / Motor Behavior: appropriate eye contact Speech: normal speech Mood & Affect: euthymic mood Thought Process: normal thought process Thought Content: normal thought content Attention / Concentration: attention grossly intact Debridement Note Debridement Note Post-Debridement Measurements and Additional Note: Post-Debridement Measurements/Treatment - Nurse 1 - General Ulcer Assessment Start: 12/29/20 10:20 Freq: Status: Active Protocol: CHETAN Activity Type Activity Date Activity User E-Sign Co-Sign Detail Recorded Client Recorded Date Recorded By Document 12/29/20 10:20 PL [id number] 12/29/20 10:29 PL Document 01/01/21 12:55 KR [id number] 01/01/21 12:55 KR Document 01/05/21 10:44 KR [id number] 01/05/21 10:57 KR 12/29/20 01/01/21 01/05/21 10:20 12:55 10:44 - Today's Visit Information Type of service Initial Visit Nurse-only Follow-up 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 ) Arrival Mode Ambulatory Ambulatory Transfer Assistance None Patient Identification Verified (Name & Yes Yes Yes ) Patient Requires Transmission-Based No Precautions Safety Precautions NA Finger Stick Blood Sugar(mg/dl) (if 147 indicated): Blood Sugar Stated by Patient Height and Weight Height 5 ft 7 in Weight 240 lb Weight in Pounds 240.0 lbs Body Mass Index (BMI) 37.5 37.5 37.5 BMI Classification Obese Obese Obese BSA - Elaina 2.18 Vital Signs Temperature (97.8 F-99.1 F) 98.0 F 98.3 F 96.5 F L Temperature Source Temporal Temporal Temporal Pulse Rate (60-100) 88 78 Pulse Location Monitor Respiratory Rate (12-18) 18 Blood Pressure (90/60-120/80) 193/86 H 161/88 H Blood Pressure Mean 121 112 Source Monitor Position Semi-Fowlers Blood Pressure Location Right Arm History Since Last Visit- (Skip if this is Patient's initial visit) Have you changed medications since your No No No last visit? Any new allergies or adverse reactions No No No Had a fall/change in ADL's that may No No No increase risk of falls Signs or symptoms of abuse and/or No No No neglect since last visit Have you been in the hospital since your No No No last visit? Has dressing in place as prescribed Yes Yes Yes Has compression in place as prescribed N/A Yes Has offloadiing in place as prescribed N/A N/A N/A Experienced any changes in pain level or No No No management Left Footwear Regular Shoe Regular Shoe Right Footwear Regular Shoe Regular Shoe Pain Scale: 0-10 Numeric Is Patient Pain Free? Yes Yes Yes - Nurse 1 - General Ulcer Measurement Start: 12/29/20 10:20 Freq: Status: Active Protocol: Activity Type Activity Date Activity User E-Sign Co-Sign Detail Recorded Client Recorded Date Recorded By Document 12/29/20 10:20 PL [id number] 12/29/20 10:29 PL Document 01/05/21 10:44 KR [id number] 01/05/21 10:57 KR 12/29/20 01/05/21 10:20 10:44 Wound Center Nurse 1 Right Calf (cm) 49.5 46.5 Point of measurement (cm from the medial 26 instep) Right Ankle (cm) 34 31 Point of Measurement (cm from the medial 13 instep) Left Calf (cm) 55 46.5 Point of measurement (cm from the medial 27 instep) Left Ankle (cm) 38 31.5 Point of Measurement (cm from the medial 14 instep) - Nurse 3 - General Ulcer D/C NN Start: 12/29/20 10:20 Freq: Status: Active Protocol: Activity Type Activity Date Activity User E-Sign Co-Sign Detail Recorded Client Recorded Date Recorded By Document 12/29/20 14:21 PL [id number] 12/29/20 14:23 PL Document 01/01/21 12:56 KR [id number] 01/01/21 12:56 KR 12/29/20 01/01/21 14:21 12:56 Pain Scale: 0-10 Numeric Is Patient Pain Free? Yes Wound Care Nurse 3 Bilateral -Multi-Layered Wrap Application Unna Boot - Unna Boot - Bilateral ($) Bilateral ($) -Unna Boots (Bilat) ($) 2 2 WC - Visit Discharge Discharge Condition Stable Stable Ambulatory Status Ambulatory Ambulatory Transportation Private Auto Private Auto Accompanied by self Clinical Summary of Care Provided Yes No debridement was completed: No debridement was completed today Assessment/Plan Assessment/Plan (1) Leg swelling: CODE(S): M79.89 - Other specified soft tissue disorders (2) Leg edema: CODE(S): R60.0 - Localized edema (3) Chronic venous insufficiency: CODE(S): I87.2 - Venous insufficiency (chronic) (peripheral) (4) Lymphedema of both lower extremities: CODE(S): I89.0 - Lymphedema, not elsewhere classified (5) Venous stasis: CODE(S): I87.8 - Other specified disorders of veins (6) Hypothyroidism: CODE(S): E03.9 - Hypothyroidism, unspecified (7) Hypertension: CODE(S): I10 - Essential (primary) hypertension (8) Hyperlipidemia: CODE(S): E78.5 - Hyperlipidemia, unspecified (9) Rheumatoid arthritis: CODE(S): M06.9 - Rheumatoid arthritis, unspecified (10) Diabetes mellitus: CODE(S): E11.9 - Type 2 diabetes mellitus without complications PLAN: This is a 75-year-old female who presents with a longstanding history of swelling, edema, and lymphedema in her lower extremities bilaterally. As explained to the patient in detail, it appears as though most, if not all, of her symptoms are related to her lifestyle and habits. She has been encouraged to sleep in a position whereby her lower extremities are at heart level, or higher. Leg elevation has also been recommended during daytime hours. As explained to the patient, her legs should be at heart level, or higher, as much as possible. Prolonged idle sitting has been discouraged. Activity has been encouraged. Weight optimization has also been recommended. Patient has been encouraged to optimize her glycemic control and to optimize nutritional intake. We are to arrange for assessment of lower extremity arterial status, by means of a noninvasive study. We are to continue compression to the patient's lower extremities by means of Unna boots, which will be applied today, and then twice weekly. Thus far, there has been significant improvement. Patient is to return in 1 week for reassessment. Total time: 28 minutes.
[2021-01-08 11:42] VITALS: BP 189/76; PULSE 76; RESP 20; TEMP 37; BMI 37.5
== END 2021-01-16 23:59 ==
LOC: WC 11:30
PROVIDERS: PCP Family Medicine; Visit Provider Surgery
DX: M79.89 Other specified soft tissue disorders (principal); I89.0 Lymphedema, not elsewhere classified; I87.2 Venous insufficiency (chronic) (peripheral); I87.8 Other specified disorders of veins; R60.0 Localized edema; M79.605 Pain in left leg; M79.604 Pain in right leg; G89.29 Other chronic pain; M06.9 Rheumatoid arthritis, unspecified; E03.9 Hypothyroidism, unspecified; E11.9 Type 2 diabetes mellitus without complications; I10 Essential (primary) hypertension; E78.2 Mixed hyperlipidemia; F32.9 Major depressive disorder, single episode, unspecified; E66.9 Obesity, unspecified; Z68.37 Body mass index [BMI] 37.0-37.9, adult; Z79.4 Long term (current) use of insulin; Z79.899 Other long term (current) drug therapy
CPT/HCPCS: 29580; 99213; G0463

== ENCOUNTER 2021-01-26 10:45 | Outpatient (RCR) | payer MEDICARE, SELFPAY ==
[2021-01-17 00:13] VITALS: BP 189/76; PULSE 76; RESP 20; TEMP 37
[2021-01-19 11:15] VITALS: TEMP 36.3; BMI 37.5
--- NOTE | 2021-01-19 12:55 | HP.PCM_ITS ---
History of Present Illness Date of Service: 01/19/21 Chief Complaint: Bilateral lower extremity swelling, edema, and lymphedema. History of Wound: This is a 75-year-old female who presented with swelling and edema in her lower extremities bilaterally. She stateed that her lower extremities have been edematous for many years, having worsened only within the last several months. Her condition worsened approximately 1 week ago, prompting her to seek medical attention in the [facility] Emergency Department. At the time of her presentation, severe swelling, edema, and lymphedema were noted in her lower extremities, as well as erythema, suspected to be cellulitic in nature. She was hospitalized overnight, and subsequently discharged with instructions to follow-up at the [facility]. She presents today for further evaluation and management. She has been using Madhu wraps for compression. She is not very active, typically sitting idly for many hours each day. She sleeps in a semi-upright position, in a lift chair. At times, she has noted exudative drainage from the pores of her distal lower extremities. She experiences pain in her lower extremities associated with the swelling and edema. The erythematous changes in the skin of her legs has diminished moderately since her recent overnight hospital stay. Patient suffers from multiple pre-existing medical conditions, including diabetes mellitus, rheumatoid arthritis, hyperlipidemia, hypertension, and hypothyroidism. [facility] Medical History Anemia Arthritis Chronic pain Chronic venous insufficiency Combined hyperlipidemia Depression Diabetes Diabetes mellitus Hyperlipidemia Hypertension Hypertension Hypothyroidism Hypothyroidism Leg edema Leg swelling Non-smoker Rheumatoid arthritis Rheumatoid arthritis Home Medications ergocalciferol (vitamin D2) [Vitamin D2] 1,250 mcg PO QWEEK 12/23/20 [History Last Taken Unknown] hydroxyzine HCl 25 mg PO TID PRN 12/23/20 [History Last Taken Unknown] levothyroxine 137 mcg PO DAILY 12/23/20 [History Last Taken Unknown] lisinopril 40 mg PO DAILY 12/23/20 [History Last Taken Unknown] meloxicam 15 mg PO DAILY 12/23/20 [History Last Taken Unknown] paroxetine HCl 20 mg PO DAILY 12/23/20 [History Last Taken Unknown] pramipexole 2 mg PO QHS 12/23/20 [History Last Taken Unknown] zolpidem 12.5 mg PO QHS 12/23/20 [History Last Taken Unknown] Tresiba FlexTouch U-100 20 unit SUBCUT BID #0 ml 12/24/20 [Rx Last Taken Unknown] hydrochlorothiazide 25 mg PO DAILY #30 tab 12/24/20 [Rx Last Taken Unknown] insulin aspart U-100 [Novolog Flexpen U-100 Insulin] 10 unit SUBCUT TID #0 ml 12/24/20 [Rx Last Taken Unknown] Allergy/AdvReac Type Severity Reaction Status Date / Time aspirin [From Percodan] Allergy Other Verified 12/23/20 17:12 oxycodone [From Percodan] Allergy Other Verified 12/23/20 17:12 vancomycin Allergy Rash Verified 12/23/20 21:40 Family History Other Cancer Heart disease Surgical History History of appendectomy History of cholecystectomy History of lung biopsy Social History Smoking Status: Never smoker Vital Signs Vital Signs Vital Signs: 01/19/21 11:15 Temperature 97.3 F L Temperature Source Temporal Weight Weight: 240 lb Body Mass Index (BMI) 37.5 Physical Exam Const alert, oriented x3, no apparent distress and well nourished General Appearance: cooperative, comfortable, well kempt and well developed Orientation / Consciousness: awake, oriented to person, oriented to place and oriented to time HEENT normocephalic and head/scalp atraumatic Head and Scalp: normal to inspection, normocephalic and atraumatic External Ear: external ears normal Eyes PERRL and EOMs intact bilaterally General Eye: normal appearance of both eyes Resp normal respiratory effort, normal air movement, no retractions and no use of accessory muscles Effort and Inspection: able to speak in complete sentences Extremity no calf tenderness Extremity Narrative: There are no open wounds or ulcerations in the patient's lower extremities. There is mild bilateral erythematous dermatitis in the gaiter areas bilaterally. There are a few, very small intact blisters scattered in the gaiter areas bilaterally. Mild bilateral swelling and edema is noted in the lower extremities. General Extremity: Negative for clubbing or cyanosis Neuro oriented x3, CN's II-XII intact bilaterally and moves all extremities Psych Appearance: grossly normal and appropriate Attitude: calm Activity / Motor Behavior: appropriate eye contact Speech: normal speech Mood & Affect: euthymic mood Thought Process: normal thought process Thought Content: normal thought content Attention / Concentration: attention grossly intact Debridement Note Debridement Note Post-Debridement Measurements and Additional Note: Post-Debridement Measurements/Treatment [place] - Nurse 1 - General Ulcer Assessment Start: 01/19/21 11:15 Freq: Status: Active Protocol: CHETAN Activity Type Activity Date Activity User E-Sign Co-Sign Detail Recorded Client Recorded Date Recorded By Document 01/19/21 11:15 JEFE [id number] 01/19/21 11:19 JEFE 01/19/21 11:15 WC - Today's Visit Information Type of service 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 Any new allergies or adverse reactions No Had a fall/change in ADL's that may No increase risk of falls Signs or symptoms of abuse and/or No neglect since last visit Have you been in the hospital since your No last visit? Has dressing in place as prescribed No Has compression in place as prescribed N/A Has offloadiing in place as prescribed N/A Left Footwear Regular Shoe Right Footwear Regular Shoe WC - Nurse 1 - General Ulcer Measurement Start: 01/19/21 11:15 Freq: Status: Active Protocol: Activity Type Activity Date Activity User E-Sign Co-Sign Detail Recorded Client Recorded Date Recorded By Document 01/19/21 11:15 JEFE [id number] 01/19/21 11:19 JEFE 01/19/21 11:15 Wound Center Nurse 1 Right Calf (cm) 45 Right Ankle (cm) 31 Left Calf (cm) 49 Left Ankle (cm) 31 [place] - Nurse 3 - General Ulcer D/C NN Start: 01/19/21 11:15 Freq: Status: Active Protocol: Activity Type Activity Date Activity User E-Sign Co-Sign Detail Recorded Client Recorded Date Recorded By Document 01/19/21 12:15 JEFE [id number] 01/19/21 12:15 JEFE 01/19/21 12:15 Wound Care Nurse 3 Left -Multi-Layered Wrap Application Unna Boot - Bilateral ($) -Unna Boots (Bilat) ($) 2 Pain Scale: 0-10 Numeric Is Patient Pain Free? Yes WC - Visit Discharge Discharge Condition Stable Ambulatory Status Ambulatory Transportation Private Auto No debridement was completed: No debridement was completed today Assessment/Plan Assessment/Plan (1) Lymphedema of both lower extremities: CODE(S): I89.0 - Lymphedema, not elsewhere classified (2) Chronic venous insufficiency: CODE(S): I87.2 - Venous insufficiency (chronic) (peripheral) (3) Venous stasis: CODE(S): I87.8 - Other specified disorders of veins (4) Leg swelling: CODE(S): M79.89 - Other specified soft tissue disorders (5) Leg edema: CODE(S): R60.0 - Localized edema (6) Hypothyroidism: CODE(S): E03.9 - Hypothyroidism, unspecified (7) Hypertension: CODE(S): I10 - Essential (primary) hypertension (8) Hyperlipidemia: CODE(S): E78.5 - Hyperlipidemia, unspecified (9) Rheumatoid arthritis: CODE(S): M06.9 - Rheumatoid arthritis, unspecified (10) Diabetes mellitus: CODE(S): E11.9 - Type 2 diabetes mellitus without complications PLAN: This is a 75-year-old female who presents with a longstanding history of swelling, edema, and lymphedema in her lower extremities bilaterally. As explained to the patient in detail, it appears as though most, if not all, of her symptoms are related to her lifestyle and habits. She has been encouraged to sleep in a position whereby her lower extremities are at heart level, or higher. Leg elevation has also been recommended during daytime hours. As explained to the patient, her legs should be at heart level, or higher, as much as possible. Prolonged idle sitting has been discouraged. Activity has been encouraged. Weight optimization has also been recommended. Patient has been encouraged to optimize her glycemic control and to optimize nutritional intake. We are to arrange for assessment of lower extremity arterial status, by means of a noninvasive study. We are to continue compression to the patient's lower extremities by means of Unna boots, which will be re-applied today, and then twice weekly. Thus far, there has been significant improvement. Patient is to return in 1 week for reassessment. Ultimately, a need will arise for long-term compression options, as the patient is nearing discharge status. Total time: 29 minutes.
[2021-01-20 13:46] LABS: Bedside Glucose 207 mg/dL (70-110)
[2021-01-22 11:47] VITALS: BP 134/76; PULSE 77; RESP 22; TEMP 37.3; BMI 37.5
[2021-01-26 11:11] VITALS: BP 176/72; PULSE 72; TEMP 35.9; BMI 37.5
--- NOTE | 2021-01-26 11:52 | PCM.WC.HP ---
History of Present Illness Date of Service: 01/26/21 Chief Complaint: Bilateral lower extremity swelling, edema, and lymphedema. History of Wound: This is a 75-year-old female who presented with swelling and edema in her lower extremities bilaterally. She stateed that her lower extremities have been edematous for many years, having worsened only within the last several months. Her condition worsened approximately 1 week ago, prompting her to seek medical attention in the [facility] Emergency Department. At the time of her presentation, severe swelling, edema, and lymphedema were noted in her lower extremities, as well as erythema, suspected to be cellulitic in nature. She was hospitalized overnight, and subsequently discharged with instructions to follow-up at the [facility]. She presents today for further evaluation and management. She has been using Madhu wraps for compression. She is not very active, typically sitting idly for many hours each day. She sleeps in a semi-upright position, in a lift chair. At times, she has noted exudative drainage from the pores of her distal lower extremities. She experiences pain in her lower extremities associated with the swelling and edema. The erythematous changes in the skin of her legs has diminished moderately since her recent overnight hospital stay. Patient suffers from multiple pre-existing medical conditions, including diabetes mellitus, rheumatoid arthritis, hyperlipidemia, hypertension, and hypothyroidism. [facility] Medical History (Updated 01/26/21 @ 09:19 by Alexia OCONNOR, PA) Anemia Arthritis Chronic pain Chronic venous insufficiency Combined hyperlipidemia Depression Diabetes mellitus Hyperlipidemia Hypertension Hypothyroidism Hypothyroidism Leg edema Leg swelling Mild pulmonary arterial systolic hypertension Mitral valve annular calcification Non-smoker Rheumatoid arthritis Right ventricular dilation Home Medications ergocalciferol (vitamin D2) [Vitamin D2] 1,250 mcg PO QWEEK 12/23/20 [History Last Taken Unknown] hydroxyzine HCl 25 mg PO TID PRN 12/23/20 [History Last Taken Unknown] levothyroxine 137 mcg PO DAILY 12/23/20 [History Last Taken Unknown] lisinopril 40 mg PO DAILY 12/23/20 [History Last Taken Unknown] meloxicam 15 mg PO DAILY 12/23/20 [History Last Taken Unknown] paroxetine HCl 20 mg PO DAILY 12/23/20 [History Last Taken Unknown] pramipexole 2 mg PO QHS 12/23/20 [History Last Taken Unknown] zolpidem 12.5 mg PO QHS 12/23/20 [History Last Taken Unknown] Tresiba FlexTouch U-100 20 unit SUBCUT BID #0 ml 12/24/20 [Rx Last Taken Unknown] hydrochlorothiazide 25 mg PO DAILY #30 tab 12/24/20 [Rx Last Taken Unknown] insulin aspart U-100 [Novolog Flexpen U-100 Insulin] 10 unit SUBCUT TID #0 ml 12/24/20 [Rx Last Taken Unknown] Allergy/AdvReac Type Severity Reaction Status Date / Time aspirin [From Percodan] Allergy Other Verified 01/26/21 08:43 oxycodone [From Percodan] Allergy Other Verified 01/26/21 08:43 vancomycin Allergy Rash Verified 01/26/21 08:43 Family History Other Cancer Heart disease Surgical History History of appendectomy History of cholecystectomy History of lung biopsy Social History Smoking Status: Never smoker Vital Signs Vital Signs Vital Signs: 01/26/21 11:11 Temperature 96.7 F L Temperature Source Temporal Pulse Rate 72 Blood Pressure 176/72 H Blood Pressure Mean 106 Blood Pressure Source Monitor Blood Pressure Position Semi-Fowlers Blood Pressure Location Left Arm Weight Weight: 240 lb Body Mass Index (BMI) 37.5 Physical Exam Const alert, oriented x3, no apparent distress and well nourished Constitutional Narrative: The patient is obese. General Appearance: cooperative, comfortable and well developed Orientation / Consciousness: awake, oriented to person, oriented to place and oriented to time HEENT normocephalic and head/scalp atraumatic Head and Scalp: normal to inspection, normocephalic and atraumatic External Ear: external ears normal Eyes PERRL and EOMs intact bilaterally General Eye: normal appearance of both eyes Resp normal respiratory effort, normal air movement, no retractions and no use of accessory muscles Effort and Inspection: able to speak in complete sentences Extremity no calf tenderness Extremity Narrative: Mild swelling, edema, and lymphedema persist in the patient's lower extremities bilaterally. There are no open wounds or ulcerations. A mild inflammatory erythema is noted in the gaiter areas bilaterally. General Extremity: Negative for clubbing or cyanosis Skin General Skin Exam: no breakdown Neuro oriented x3, CN's II-XII intact bilaterally and moves all extremities Sensorium / Orientation: awake, alert, oriented to person, oriented to place and oriented to time Psych Appearance: grossly normal and appropriate Attitude: calm Activity / Motor Behavior: appropriate eye contact Speech: normal speech Mood & Affect: euthymic mood Thought Process: normal thought process Thought Content: normal thought content Attention / Concentration: attention grossly intact Debridement Note Debridement Note No debridement was completed: No debridement was completed today Assessment/Plan Assessment/Plan (1) Leg swelling: CODE(S): M79.89 - Other specified soft tissue disorders (2) Leg edema: CODE(S): R60.0 - Localized edema (3) Venous stasis: CODE(S): I87.8 - Other specified disorders of veins (4) Lymphedema of both lower extremities: CODE(S): I89.0 - Lymphedema, not elsewhere classified (5) Chronic venous insufficiency: CODE(S): I87.2 - Venous insufficiency (chronic) (peripheral) (6) Right ventricular dilation: CODE(S): I51.7 - Cardiomegaly (7) Mild pulmonary arterial systolic hypertension: CODE(S): I27.21 - Secondary pulmonary arterial hypertension (8) Mitral valve annular calcification: CODE(S): I05.9 - Rheumatic mitral valve disease, unspecified (9) Hypothyroidism: CODE(S): E03.9 - Hypothyroidism, unspecified (10) Hypertension: CODE(S): I10 - Essential (primary) hypertension (11) Hyperlipidemia: CODE(S): E78.5 - Hyperlipidemia, unspecified (12) Rheumatoid arthritis: CODE(S): M06.9 - Rheumatoid arthritis, unspecified (13) Diabetes mellitus: CODE(S): E11.9 - Type 2 diabetes mellitus without complications PLAN: This is a 75-year-old female who presented with a longstanding history of swelling, edema, and lymphedema in her lower extremities bilaterally. As explained to the patient in detail, it appears as though most, if not all, of her symptoms are related to her lifestyle and habits. She has been encouraged to sleep in a position whereby her lower extremities are at heart level, or higher. Leg elevation has also been recommended during daytime hours. As explained to the patient, her legs should be at heart level, or higher, as much as possible. Prolonged idle sitting has been discouraged. Activity has been encouraged. Weight optimization has also been recommended. Patient has been encouraged to optimize her glycemic control and to optimize nutritional intake. Patient has made significant improvement, and is to be discharged. Her lower extremities are to be wrapped with a 3M 2 layer compression wrap bilaterally. The patient has been given a prescription for knee-high graduated compression stockings of 20 to 30 mmHg compression. She is to arrange an appointment with a local medical supply store for appropriate fitting of the stockings. She owns donning devices, to assist in the donning of the compression stockings, once obtained. A referral was to be made to the lymphedema clinic at [facility]. There has been significant improvement. The patient will follow-up henceforth on an as-needed basis, though has been encouraged to utilize daily compression and leg elevation for the long-term. Total time: 28 minutes.
== END 2021-01-26 11:44 | disposition home or self-care (01) ==
LOC: WC 10:45
PROVIDERS: PCP Family Medicine; Visit Provider Surgery
DX: M79.89 Other specified soft tissue disorders (principal); R60.0 Localized edema; I89.0 Lymphedema, not elsewhere classified; E03.9 Hypothyroidism, unspecified; I10 Essential (primary) hypertension; E78.5 Hyperlipidemia, unspecified; E11.9 Type 2 diabetes mellitus without complications; M06.9 Rheumatoid arthritis, unspecified; E66.9 Obesity, unspecified; Z68.37 Body mass index [BMI] 37.0-37.9, adult; Z79.4 Long term (current) use of insulin; Z79.899 Other long term (current) drug therapy
CPT/HCPCS: 29580; 29581; 82962; 99213; G0463

== ENCOUNTER 2021-02-16 10:31 | Outpatient (RCR) | payer MEDICARE, SELFPAY ==
[2021-02-16 10:57] VITALS: BP 175/75; PULSE 72; TEMP 36.8; BMI 39.1
--- NOTE | 2021-02-16 14:07 | HP.PCM_ITS ---
History of Present Illness Date of Service: 02/16/21 Chief Complaint: Bilateral lower extremity swelling, edema, and lymphedema. History of Wound: This is a 75-year-old female who presented with swelling and edema in her lower extremities bilaterally. She stateed that her lower extremities have been edematous for many years, having worsened only within the last several months. Her condition worsened approximately 1 week ago, prompting her to seek medical attention in the [facility] Emergency Department. At the time of her presentation, severe swelling, edema, and lymphedema were noted in her lower extremities, as well as erythema, suspected to be cellulitic in nature. She was hospitalized overnight, and subsequently discharged with instructions to follow-up at the [facility]. She presents today for further evaluation and management. She has been using Madhu wraps for compression. She is not very active, typically sitting idly for many hours each day. She sleeps in a semi-upright position, in a lift chair. At times, she has noted exudative drainage from the pores of her distal lower extremities. She experiences pain in her lower extremities associated with the swelling and edema. The erythematous changes in the skin of her legs has diminished moderately since her recent overnight hospital stay. Patient suffers from multiple pre-existing medical conditions, including diabetes mellitus, rheumatoid arthritis, hyperlipidemia, hypertension, and hypothyroidism. [facility] Medical History Anemia Arthritis Chronic pain Chronic venous insufficiency Combined hyperlipidemia Depression Diabetes mellitus Hyperlipidemia Hypertension Hypothyroidism Hypothyroidism Leg edema Leg swelling Mild pulmonary arterial systolic hypertension Mitral valve annular calcification Non-smoker Rheumatoid arthritis Right ventricular dilation Home Medications ergocalciferol (vitamin D2) [Vitamin D2] 1,250 mcg PO QWEEK 12/23/20 [History Last Taken Unknown] hydroxyzine HCl 25 mg PO TID PRN 12/23/20 [History Last Taken Unknown] levothyroxine 137 mcg PO DAILY 12/23/20 [History Last Taken Unknown] lisinopril 40 mg PO DAILY 12/23/20 [History Last Taken Unknown] meloxicam 15 mg PO DAILY 12/23/20 [History Last Taken Unknown] pramipexole 2 mg PO QHS 12/23/20 [History Last Taken Unknown] zolpidem 12.5 mg PO QHS 12/23/20 [History Last Taken Unknown] insulin aspart U-100 100 unit/mL (3 mL) subcutaneous pen 18 unit SUBCUT BID #0 ml 01/29/21 [Rx Last Taken Unknown] insulin degludec 100 unit/mL (3 mL) subcutaneous pen 22 unit SUBCUT BID #0 ml 01/29/21 [Rx Last Taken Unknown] potassium chloride 20 mEq tablet,extended release 20 meq PO DAILY 01/29/21 [History Last Taken Unknown] torsemide 20 mg tablet 20 mg PO BID tab 01/29/21 [History Last Taken Unknown] amlodipine 5 mg tablet 5 mg PO DAILY #90 tab 02/09/21 [Rx Last Taken Unknown] Allergy/AdvReac Type Severity Reaction Status Date / Time aspirin [From Percodan] Allergy Other Verified 01/26/21 08:43 oxycodone [From Percodan] Allergy Other Verified 01/26/21 08:43 vancomycin Allergy Rash Verified 01/26/21 08:43 Family History Other Cancer Heart disease Surgical History History of appendectomy History of cholecystectomy History of lung biopsy Social History Smoking Status: Never smoker Vital Signs Vital Signs Vital Signs: 02/16/21 10:57 Temperature 98.3 F Temperature Source Temporal Pulse Rate 72 Blood Pressure 175/75 H Blood Pressure Mean 108 Blood Pressure Source Monitor Weight Weight: 250 lb Body Mass Index (BMI) 39.1 Physical Exam Const alert, oriented x3, no apparent distress and well nourished General Appearance: cooperative, comfortable and well developed Orientation / Consciousness: awake, oriented to person, oriented to place and oriented to time HEENT normocephalic and head/scalp atraumatic Head and Scalp: normal to inspection, normocephalic and atraumatic External Ear: external ears normal Eyes PERRL and EOMs intact bilaterally General Eye: normal appearance of both eyes Resp normal respiratory effort, normal air movement, no retractions and no use of accessory muscles Effort and Inspection: able to speak in complete sentences Extremity no calf tenderness Extremity Narrative: Severe swelling and edema are noted in the patient's lower extremities bilaterally. Diffuse erythema is also noted. There are multiple blisters bilaterally in the gaiter areas. Blisters are mostly intact. There do not appear to be any frankly open ulcerations or wounds. General Extremity: Negative for clubbing or cyanosis Neuro oriented x3, CN's II-XII intact bilaterally and moves all extremities Sensorium / Orientation: awake, alert, oriented to person, oriented to place and oriented to time Psych Appearance: grossly normal and appropriate Attitude: calm Activity / Motor Behavior: appropriate eye contact Speech: normal speech Mood & Affect: euthymic mood Thought Process: normal thought process Thought Content: normal thought content Attention / Concentration: attention grossly intact Debridement Note Debridement Note Post-Debridement Measurements and Additional Note: Post-Debridement Measurements/Treatment WC - Nurse 1 - General Ulcer Assessment Start: 02/16/21 10:56 Freq: Status: Active Protocol: CHETAN Activity Type Activity Date Activity User E-Sign Co-Sign Detail Recorded Client Recorded Date Recorded By Document 02/16/21 10:57 GRADY [id number] 02/16/21 11:10 GRADY 02/16/21 10:57 WC - Today's Visit Information Type of service Initial Visit Arrival Mode Ambulatory Patient Identification Verified (Name & Yes ) Patient Requires Transmission-Based No Precautions Finger Stick Blood Sugar(mg/dl) (if 160 indicated): Blood Sugar Stated by Patient Height and Weight Height 5 ft 7 in Weight 250 lb Weight in Pounds 250.0 lbs Weight Measurement Method Estimated by Patient Body Mass Index (BMI) 39.1 BMI Classification Obese BSA - [place] 2.22 Vital Signs Temperature (97.8 F-99.1 F) 98.3 F Temperature Source Temporal Pulse Rate (60-100) 72 Pulse Location Monitor Blood Pressure (90/60-120/80) 175/75 H Blood Pressure Mean 108 Source Monitor History Since Last Visit- (Skip if this is Patient's initial visit) Have you changed medications since your No last visit? Any new allergies or adverse reactions No Had a fall/change in ADL's that may No increase risk of falls Signs or symptoms of abuse and/or No neglect since last visit Have you been in the hospital since your No last visit? Has dressing in place as prescribed No Has compression in place as prescribed N/A Has offloadiing in place as prescribed N/A Left Footwear Regular Shoe Right Footwear Regular Shoe - Nurse 1 - General Ulcer Measurement Start: 02/16/21 10:56 Freq: Status: Active Protocol: Activity Type Activity Date Activity User E-Sign Co-Sign Detail Recorded Client Recorded Date Recorded By Document 02/16/21 10:57 AK [id number] 02/16/21 11:10 AK 02/16/21 10:57 Wound Center Nurse 1 Right Calf (cm) 51 Right Ankle (cm) 34 Left Calf (cm) 52 Left Ankle (cm) 32.1 WC - Nurse 3 - General Ulcer D/C NN Start: 02/16/21 10:56 Freq: Status: Active Protocol: Activity Type Activity Date Activity User E-Sign Co-Sign Detail Recorded Client Recorded Date Recorded By Document 02/16/21 12:24 KR [id number] 02/16/21 12:24 KR 02/16/21 12:24 Wound Care Nurse 3 Left -Multi-Layered Wrap Application Unna Boot - Bilateral ($) -Unna Boots (Bilat) ($) 2 Pain Scale: 0-10 Numeric Is Patient Pain Free? Yes WC - Visit Discharge Discharge Condition Stable Ambulatory Status Ambulatory Transportation Private Auto No debridement was completed: No debridement was completed today Assessment/Plan Assessment/Plan (1) Chronic venous insufficiency: CODE(S): I87.2 - Venous insufficiency (chronic) (peripheral) (2) Leg swelling: CODE(S): M79.89 - Other specified soft tissue disorders (3) Leg edema: CODE(S): R60.0 - Localized edema (4) Venous stasis: CODE(S): I87.8 - Other specified disorders of veins (5) Mitral valve annular calcification: CODE(S): I05.9 - Rheumatic mitral valve disease, unspecified (6) Mild pulmonary arterial systolic hypertension: CODE(S): I27.21 - Secondary pulmonary arterial hypertension (7) Right ventricular dilation: CODE(S): I51.7 - Cardiomegaly (8) Hypothyroidism: CODE(S): E03.9 - Hypothyroidism, unspecified (9) Hypertension: CODE(S): I10 - Essential (primary) hypertension (10) Hyperlipidemia: CODE(S): E78.5 - Hyperlipidemia, unspecified (11) Rheumatoid arthritis: CODE(S): M06.9 - Rheumatoid arthritis, unspecified (12) Diabetes mellitus: CODE(S): E11.9 - Type 2 diabetes mellitus without complications (13) Lymphedema of both lower extremities: CODE(S): I89.0 - Lymphedema, not elsewhere classified PLAN: This is a 75-year-old female who presented with a longstanding history of swelling, edema, and lymphedema in her lower extremities bilaterally. As explained to the patient in detail, it appears as though most, if not all, of her symptoms are related to her lifestyle and habits. She has been encouraged to sleep in a position whereby her lower extremities are at heart level, or higher. Leg elevation has also been recommended during daytime hours. As explained to the patient, her legs should be at heart level, or higher, as much as possible. Prolonged idle sitting has been discouraged. Activity has been encouraged. Weight optimization has also been recommended. Patient has been encouraged to optimize her glycemic control and to optimize nutritional intake. The implementation of conservative treatment measures had recently been successful in reducing the amount of swelling and edema in the patient's lower extremities, and the patient had been recently discharged. She had been given a prescription for graduated compression stockings of 20 to 30 mmHg compression. However, despite a lapse of several weeks, the patient has not yet received the stockings, claiming the fault of [facility], where she had initially been measured and fitted. Furthermore, she also had an excuse for failing to seek evaluation at the Lymphedema Clinic at [facility], despite the passage of several weeks. As result of her recent noncompliance, the patient returns now with significantly swollen and edematous lower extremities, inflammatory erythema, and blistering. We are to reimplement the conservative treatment measures which have been so successful in minimizing the swelling and edema in the recent past. We are to apply Unna boots bilaterally, which will be changed twice weekly. Patient is to elevate her lower extremities much as possible, avoid idle standing and sitting, enhance activity, etc. She is to follow-up in 1 week for reevaluation. Total time: 29 minutes.
== END 2021-02-16 23:59 ==
LOC: WC 10:31
PROVIDERS: PCP Family Medicine; Visit Provider Surgery
DX: I87.2 Venous insufficiency (chronic) (peripheral) (principal); M79.89 Other specified soft tissue disorders; R60.0 Localized edema; I89.0 Lymphedema, not elsewhere classified; Z91.19 Patient's noncompliance with other medical treatment and regimen; M79.605 Pain in left leg; M79.604 Pain in right leg; G89.29 Other chronic pain; I27.21 Secondary pulmonary arterial hypertension; E11.9 Type 2 diabetes mellitus without complications; M06.9 Rheumatoid arthritis, unspecified; I10 Essential (primary) hypertension; E78.2 Mixed hyperlipidemia; E03.9 Hypothyroidism, unspecified; F32.9 Major depressive disorder, single episode, unspecified; E66.9 Obesity, unspecified; Z68.39 Body mass index [BMI] 39.0-39.9, adult; Z79.4 Long term (current) use of insulin; Z79.1 Long term (current) use of non-steroidal anti-inflammatories (NSAID); Z79.890 Hormone replacement therapy; Z79.899 Other long term (current) drug therapy; I87.8 Other specified disorders of veins
CPT/HCPCS: 29580; 99213; G0463

== ENCOUNTER 2021-03-09 09:15 | Outpatient (RCR) | payer MEDICARE, SELFPAY ==
[2021-02-17 00:46] VITALS: BP 175/75; PULSE 72; TEMP 36.8; BMI 39.1
[2021-02-19 12:42] VITALS: BP 149/94; PULSE 86; TEMP 36.8; BMI 39.1
[2021-02-23 14:33] VITALS: BP 180/81; PULSE 82; RESP 18; TEMP 36.8; BMI 39.1
[2021-02-26 12:34] VITALS: BP 132/69; PULSE 88; TEMP 36.1; BMI 39.1
[2021-03-09 09:28] VITALS: BP 181/94; PULSE 76; TEMP 36.5; BMI 39.1
--- NOTE | 2021-03-09 13:23 | PCM.WC.HP ---
History of Present Illness Date of Service: 03/09/21 Chief Complaint: Bilateral lower extremity swelling, edema, and lymphedema. History of Wound: This is a 75-year-old female who presented with swelling and edema in her lower extremities bilaterally. She stateed that her lower extremities have been edematous for many years, having worsened only within the last several months. Her condition worsened approximately 1 week ago, prompting her to seek medical attention in the [facility] Emergency Department. At the time of her presentation, severe swelling, edema, and lymphedema were noted in her lower extremities, as well as erythema, suspected to be cellulitic in nature. She was hospitalized overnight, and subsequently discharged with instructions to follow-up at the [facility]. She presents today for further evaluation and management. She has been using Madhu wraps for compression. She is not very active, typically sitting idly for many hours each day. She sleeps in a semi-upright position, in a lift chair. At times, she has noted exudative drainage from the pores of her distal lower extremities. She experiences pain in her lower extremities associated with the swelling and edema. The erythematous changes in the skin of her legs has diminished moderately since her recent overnight hospital stay. Patient suffers from multiple pre-existing medical conditions, including diabetes mellitus, rheumatoid arthritis, hyperlipidemia, hypertension, and hypothyroidism. [facility]LY [facility] Medical History Anemia Arthritis Chronic pain Chronic venous insufficiency Combined hyperlipidemia Depression Diabetes mellitus Hyperlipidemia Hypertension Hypothyroidism Hypothyroidism Leg edema Leg swelling Mild pulmonary arterial systolic hypertension Mitral valve annular calcification Non-smoker Rheumatoid arthritis Right ventricular dilation Home Medications ergocalciferol (vitamin D2) [Vitamin D2] 1,250 mcg PO QWEEK 12/23/20 [History Last Taken Unknown] hydroxyzine HCl 25 mg PO TID PRN 12/23/20 [History Last Taken Unknown] levothyroxine 137 mcg PO DAILY 12/23/20 [History Last Taken Unknown] lisinopril 40 mg PO DAILY 12/23/20 [History Last Taken Unknown] meloxicam 15 mg PO DAILY 12/23/20 [History Last Taken Unknown] pramipexole 2 mg PO QHS 12/23/20 [History Last Taken Unknown] zolpidem 12.5 mg PO QHS 12/23/20 [History Last Taken Unknown] insulin aspart U-100 100 unit/mL (3 mL) subcutaneous pen 18 unit SUBCUT BID #0 ml 01/29/21 [Rx Last Taken Unknown] insulin degludec 100 unit/mL (3 mL) subcutaneous pen 22 unit SUBCUT BID #0 ml 01/29/21 [Rx Last Taken Unknown] torsemide 20 mg tablet 20 mg PO BID tab 01/29/21 [History Last Taken Unknown] amlodipine 5 mg tablet 10 mg PO DAILY #90 tab 02/19/21 [Rx Last Taken Unknown] spironolactone 25 mg tablet 25 mg PO DAILY #30 tab 03/01/21 [Rx Last Taken Unknown] Allergy/AdvReac Type Severity Reaction Status Date / Time aspirin [From Percodan] Allergy Other Verified 01/26/21 08:43 oxycodone [From Percodan] Allergy Other Verified 01/26/21 08:43 vancomycin Allergy Rash Verified 01/26/21 08:43 Family History Other Cancer Heart disease Surgical History History of appendectomy History of cholecystectomy History of lung biopsy Social History Smoking Status: Never smoker Vital Signs Vital Signs Vital Signs: 03/09/21 09:28 Temperature 97.7 F L Temperature Source Temporal Pulse Rate 76 Blood Pressure 181/94 H Blood Pressure Mean 123 Blood Pressure Source Monitor Blood Pressure Position Semi-Fowlers Blood Pressure Location Right Arm Weight Weight: 250 lb Body Mass Index (BMI) 39.1 Physical Exam Const alert, oriented x3, no apparent distress and well nourished Constitutional Narrative: The patient is obese. General Appearance: cooperative and well developed Orientation / Consciousness: awake, oriented to person, oriented to place and oriented to time HEENT normocephalic and head/scalp atraumatic Head and Scalp: normal to inspection, normocephalic and atraumatic External Ear: external ears normal Eyes PERRL and EOMs intact bilaterally General Eye: normal appearance of both eyes Resp normal respiratory effort, normal air movement, no retractions and no use of accessory muscles Effort and Inspection: able to speak in complete sentences Extremity no calf tenderness Extremity Narrative: Severe swelling and edema are noted bilaterally in the patient's lower extremities. Both lower extremities are red, swollen, and edematous. There is scattered blistering, as well as scattered bilateral excoriations. Mild inflammatory erythema is noted bilaterally. General Extremity: Negative for clubbing or cyanosis Neuro oriented x3, CN's II-XII intact bilaterally and moves all extremities Sensorium / Orientation: awake, alert, oriented to person, oriented to place and oriented to time Psych Appearance: grossly normal and appropriate Attitude: calm Activity / Motor Behavior: appropriate eye contact Speech: normal speech Mood & Affect: euthymic mood Thought Process: normal thought process Thought Content: normal thought content Attention / Concentration: attention grossly intact Debridement Note Debridement Note No debridement was completed: No debridement was completed today Post-Debridement Measurements and Additional Note: Post-Debridement Measurements/Treatment - Nurse 1 - General Ulcer Assessment Start: 02/19/21 12:42 Freq: Status: Active Protocol: [email or web address] Activity Type Activity Date Activity User E-Sign Co-Sign Detail Recorded Client Recorded Date Recorded By Document 02/19/21 12:42 [place] [id number] 02/19/21 12:44 [place] Document 02/23/21 14:33 [facility] [id number] 02/23/21 14:34 [facility] Document 02/26/21 12:34 [place] [id number] 02/26/21 12:36 [place] Document 03/09/21 09:28 KR [id number] 03/09/21 09:29 KR 02/19/21 02/23/21 02/26/21 12:42 14:33 12:34 - Today's Visit Information Type of service Nurse-only Nurse-only Nurse-only Visit Visit Visit Arrival Mode Ambulatory Ambulatory Ambulatory Transfer Assistance None Patient Identification Verified (Name & Yes Yes Yes ) Patient Requires Transmission-Based No No No Precautions Safety Precautions NA NA Height and Weight Body Mass Index (BMI) 39.1 39.1 39.1 BMI Classification Obese Obese Obese Vital Signs Temperature (97.8 F-99.1 F) 98.2 F 98.3 F 96.9 F L Temperature Source Temporal Temporal Temporal Pulse Rate (60-100) 86 82 88 Pulse Location Monitor Monitor Monitor Respiratory Rate (12-18) 18 Respiratory rate source Observation Oxygen Delivery Method Room Air Blood Pressure (90/60-120/80) 149/94 H 180/81 H 132/69 H Blood Pressure Mean 112 114 90 Source Monitor Monitor Monitor Position Sitting Blood Pressure Location Right Arm History Since Last Visit- (Skip if this is Patient's initial visit) Have you changed medications since your No No No last visit? Any new allergies or adverse reactions No No No Had a fall/change in ADL's that may No No No increase risk of falls Signs or symptoms of abuse and/or No No No neglect since last visit Have you been in the hospital since your No No No last visit? Has dressing in place as prescribed Yes Yes Yes Has compression in place as prescribed Yes Yes Yes Has offloadiing in place as prescribed N/A N/A Experienced any changes in pain level or No No management Left Footwear Regular Shoe Regular Shoe Regular Shoe Right Footwear Regular Shoe Regular Shoe Regular Shoe Pain Scale: 0-10 Numeric Is Patient Pain Free? Yes 03/09/21 09:28 WC - Today's Visit Information Type of service Follow-up Visit (Physician/ESTHETICS INSTRUCTOR ) Arrival Mode Ambulatory Transfer Assistance Patient Identification Verified (Name & Yes ) Patient Requires Transmission-Based Precautions Safety Precautions Height and Weight Body Mass Index (BMI) 39.1 BMI Classification Obese Vital Signs Temperature (97.8 F-99.1 F) 97.7 F L Temperature Source Temporal Pulse Rate (60-100) 76 Pulse Location Monitor Respiratory Rate (12-18) Respiratory rate source Oxygen Delivery Method Blood Pressure (90/60-120/80) 181/94 H Blood Pressure Mean 123 Source Monitor Position Semi-Fowlers Blood Pressure Location Right Arm History Since Last Visit- (Skip if this is Patient's initial visit) Have you changed medications since your No last visit? Any new allergies or adverse reactions No Had a fall/change in ADL's that may No increase risk of falls Signs or symptoms of abuse and/or No neglect since last visit Have you been in the hospital since your No last visit? Has dressing in place as prescribed No Has compression in place as prescribed Yes Has offloadiing in place as prescribed N/A Experienced any changes in pain level or No management Left Footwear Regular Shoe Right Footwear Regular Shoe Pain Scale: 0-10 Numeric Is Patient Pain Free? Yes - Nurse 1 - General Ulcer Measurement Start: 02/19/21 12:42 Freq: Status: Active Protocol: Activity Type Activity Date Activity User E-Sign Co-Sign Detail Recorded Client Recorded Date Recorded By Document 02/19/21 12:42 AK [id number] 02/19/21 12:44 AK Document 02/23/21 14:33 [facility] [id number] 02/23/21 14:34 BM Document 02/26/21 12:34 AK [id number] 02/26/21 12:36 AK Document 03/09/21 09:28 KR [id number] 03/09/21 09:29 KR 02/19/21 02/23/21 02/26/21 12:42 14:33 12:34 Wound Center Nurse 1 Lower Limb Edema Present Yes Right Calf (cm) 48 51.5 49.5 Right Ankle (cm) 30 32.6 53 Right Foot (cm) 33 Left Calf (cm) 49.5 53.2 Left Ankle (cm) 33 31.7 03/09/21 09:28 Wound Center Nurse 1 Lower Limb Edema Present Right Calf (cm) 53.8 Right Ankle (cm) 33.2 Right Foot (cm) Left Calf (cm) 55 Left Ankle (cm) 35.5 WC - Nurse 3 - General Ulcer D/C NN Start: 02/19/21 12:42 Freq: Status: Active Protocol: Activity Type Activity Date Activity User E-Sign Co-Sign Detail Recorded Client Recorded Date Recorded By Document 02/19/21 12:42 AK [id number] 02/19/21 12:44 AK Document 02/23/21 14:33 BMF [id number] 02/23/21 14:34 [facility] Document 02/26/21 12:34 AK [id number] 02/26/21 12:36 AK Document 03/09/21 09:57 BMF [id number] 03/09/21 10:01 F 02/19/21 02/23/21 02/26/21 12:42 14:33 12:34 Vital Signs Temperature (97.8 F-99.1 F) 98.2 F 98.3 F 96.9 F L Temperature Source Temporal Temporal Temporal Pulse Rate (60-100) 86 82 88 Pulse Location Monitor Monitor Monitor Respiratory Rate (12-18) 18 Respiratory rate source Observation Oxygen Delivery Method Room Air Blood Pressure (90/60-120/80) 149/94 H 180/81 H 132/69 H Blood Pressure Mean 112 114 90 Source Monitor Monitor Monitor Position Sitting Blood Pressure Location Right Arm Pain Scale: 0-10 Numeric Is Patient Pain Free? Yes Wound Care Nurse 3 DULCE -Lotion applied to leg before No compression wrap -Multi-Layered Wrap Application Unna Boot - Unna Boot - Bilateral ($) Bilateral ($) -Unna Boots (Bilat) ($) 2 2 Left -Lotion applied to leg before No compression wrap -Multi-Layered Wrap Application Unna Boot - Bilateral ($) -Unna Boots (Bilat) ($) 2 Treatment Response Procedure Tolerated Well WC - Visit Discharge Discharge Condition Stable Stable Stable Ambulatory Status Ambulatory Ambulatory Ambulatory Transportation Private Auto Private Auto Private Auto Medication Reconcilliation completed & No No provided to patient/care provider Clinical Summary of Care Provided Yes No 03/09/21 09:57 Vital Signs Temperature (97.8 F-99.1 F) Temperature Source Pulse Rate (60-100) Pulse Location Respiratory Rate (12-18) Respiratory rate source Oxygen Delivery Method Blood Pressure (90/60-120/80) Blood Pressure Mean Source Position Blood Pressure Location Pain Scale: 0-10 Numeric Is Patient Pain Free? Yes Wound Care Nurse 3 DULCE -Lotion applied to leg before compression wrap -Multi-Layered Wrap Application Unna Boot - Bilateral ($) -Unna Boots (Bilat) ($) 2 Left -Lotion applied to leg before compression wrap -Multi-Layered Wrap Application -Unna Boots (Bilat) ($) Treatment Response Procedure Tolerated Well WC - Visit Discharge Discharge Condition Stable Ambulatory Status Ambulatory Transportation Private Auto Medication Reconcilliation completed & provided to patient/care provider Clinical Summary of Care Provided Assessment/Plan Assessment/Plan (1) Leg edema: CODE(S): R60.0 - Localized edema (2) Leg swelling: CODE(S): M79.89 - Other specified soft tissue disorders (3) Venous stasis: CODE(S): I87.8 - Other specified disorders of veins (4) Chronic venous insufficiency: CODE(S): I87.2 - Venous insufficiency (chronic) (peripheral) (5) Lymphedema of both lower extremities: CODE(S): I89.0 - Lymphedema, not elsewhere classified (6) Mitral valve annular calcification: CODE(S): I05.9 - Rheumatic mitral valve disease, unspecified (7) Mild pulmonary arterial systolic hypertension: CODE(S): I27.21 - Secondary pulmonary arterial hypertension (8) Right ventricular dilation: CODE(S): I51.7 - Cardiomegaly (9) Hypothyroidism: CODE(S): E03.9 - Hypothyroidism, unspecified (10) Hypertension: CODE(S): I10 - Essential (primary) hypertension (11) Hyperlipidemia: CODE(S): E78.5 - Hyperlipidemia, unspecified (12) Rheumatoid arthritis: CODE(S): M06.9 - Rheumatoid arthritis, unspecified (13) Diabetes mellitus: CODE(S): E11.9 - Type 2 diabetes mellitus without complications PLAN: This is a 75-year-old female who presented with a longstanding history of swelling, edema, and lymphedema in her lower extremities bilaterally. As explained to the patient in detail, it appears as though most, if not all, of her symptoms are related to her lifestyle and habits. She has been encouraged to sleep in a position whereby her lower extremities are at heart level, or higher. Leg elevation has also been recommended during daytime hours. As explained to the patient, her legs should be at heart level, or higher, as much as possible. Prolonged idle sitting has been discouraged. Activity has been encouraged. Weight optimization has also been recommended. Patient has been encouraged to optimize her glycemic control and to optimize nutritional intake. The implementation of conservative treatment measures had recently been successful in reducing the amount of swelling and edema in the patient's lower extremities, and the patient had been recently discharged. She had been given a prescription for graduated compression stockings of 20 to 30 mmHg compression. However, despite a lapse of several weeks, the patient has not yet received the stockings, claiming the fault of [facility], where she had initially been measured and fitted. Furthermore, she also had an excuse for failing to seek evaluation at the L[facility] at [facility], despite the passage of several weeks. As result of her recent noncompliance, the patient returned with significantly swollen and edematous lower extremities, inflammatory erythema, and blistering. We reimplemented the conservative treatment measures which had been so successful in minimizing the swelling and edema in the recent past. We applied Unna boots bilaterally, with plans to change twice weekly. Patient was to elevate her lower extremities much as possible, avoid idle standing and sitting, enhance activity, etc. However, she showed up today with severe swelling, edema, and lymphedema in her lower extremities, associated with blistering and erythema. It is determined that she had removed her Unna boots 4 days prior to her appointment and has been without compression for the last 4 days. She had missed her last appointment, at which time her Unna boots were to have been replaced. It also appears as though she has been less than completely compliant with instructions for elevation. We are to reapply Unna boots bilaterally, to be changed twice a week, and the patient is to follow-up in 1 week for reevaluation. Total time: 28 minutes.
== END 2021-03-18 23:59 ==
LOC: WC 09:15
PROVIDERS: PCP Family Medicine; Visit Provider Surgery
DX: I87.2 Venous insufficiency (chronic) (peripheral) (principal); I89.0 Lymphedema, not elsewhere classified; M79.89 Other specified soft tissue disorders; I27.21 Secondary pulmonary arterial hypertension; E11.9 Type 2 diabetes mellitus without complications; I10 Essential (primary) hypertension; M06.9 Rheumatoid arthritis, unspecified; E03.9 Hypothyroidism, unspecified; E78.2 Mixed hyperlipidemia; G89.29 Other chronic pain; F32.9 Major depressive disorder, single episode, unspecified; E66.9 Obesity, unspecified; Z68.39 Body mass index [BMI] 39.0-39.9, adult; Z79.4 Long term (current) use of insulin; Z79.1 Long term (current) use of non-steroidal anti-inflammatories (NSAID); Z79.890 Hormone replacement therapy; Z79.899 Other long term (current) drug therapy
CPT/HCPCS: 29580; 99213; G0463

== ENCOUNTER 2021-04-06 10:15 | Outpatient (RCR) | payer MEDICARE, SELFPAY ==
[2021-03-19 00:35] VITALS: BP 181/94; PULSE 76; RESP 18; TEMP 36.5; BMI 39.1
[2021-03-19 12:16] VITALS: RESP 16; TEMP 36.2; BMI 39.1
[2021-03-23 10:30] VITALS: BP 132/64; PULSE 83; RESP 18; TEMP 36.1; BMI 39.1
--- NOTE | 2021-03-23 11:19 | HP.PCM_ITS ---
History of Present Illness Date of Service: 03/23/21 Chief Complaint: Bilateral lower extremity swelling, edema, and lymphedema. History of Wound: This is a 75-year-old female who presented with swelling and edema in her lower extremities bilaterally. She stateed that her lower extremities have been edematous for many years, having worsened only within the last several months. Her condition worsened approximately 1 week ago, prompting her to seek medical attention in the [facility] Emergency Department. At the time of her presentation, severe swelling, edema, and lymphedema were noted in her lower extremities, as well as erythema, suspected to be cellulitic in nature. She was hospitalized overnight, and subsequently discharged with instructions to follow-up at the [facility]. She presents today for further evaluation and management. She has been using Madhu wraps for compression. She is not very active, typically sitting idly for many hours each day. She sleeps in a semi-upright position, in a lift chair. At times, she has noted exudative drainage from the pores of her distal lower extremities. She experiences pain in her lower extremities associated with the swelling and edema. The erythematous changes in the skin of her legs has diminished moderately since her recent overnight hospital stay. Patient suffers from multiple pre-existing medical conditions, including diabetes mellitus, rheumatoid arthritis, hyperlipidemia, hypertension, and hypothyroidism. [facility] Medical History Anemia Arthritis Chronic pain Chronic venous insufficiency Combined hyperlipidemia Depression Diabetes mellitus Hyperlipidemia Hypertension Hypothyroidism Hypothyroidism Leg edema Leg swelling Mild pulmonary arterial systolic hypertension Mitral valve annular calcification Non-smoker Rheumatoid arthritis Right ventricular dilation Home Medications ergocalciferol (vitamin D2) [Vitamin D2] 1,250 mcg PO QWEEK 12/23/20 [History Last Taken Unknown] hydroxyzine HCl 25 mg PO TID PRN 12/23/20 [History Last Taken Unknown] levothyroxine 137 mcg PO DAILY 12/23/20 [History Last Taken Unknown] lisinopril 40 mg PO DAILY 12/23/20 [History Last Taken Unknown] meloxicam 15 mg PO DAILY 12/23/20 [History Last Taken Unknown] pramipexole 2 mg PO QHS 12/23/20 [History Last Taken Unknown] zolpidem 12.5 mg PO QHS 12/23/20 [History Last Taken Unknown] insulin aspart U-100 100 unit/mL (3 mL) subcutaneous pen 18 unit SUBCUT BID #0 ml 01/29/21 [Rx Last Taken Unknown] insulin degludec 100 unit/mL (3 mL) subcutaneous pen 22 unit SUBCUT BID #0 ml 01/29/21 [Rx Last Taken Unknown] torsemide 20 mg tablet 20 mg PO BID tab 01/29/21 [History Last Taken Unknown] amlodipine 5 mg tablet 10 mg PO DAILY #90 tab 02/19/21 [Rx Last Taken Unknown] spironolactone 25 mg tablet 25 mg PO DAILY #30 tab 03/01/21 [Rx Last Taken Unknown] Allergy/AdvReac Type Severity Reaction Status Date / Time aspirin [From Percodan] Allergy Other Verified 01/26/21 08:43 oxycodone [From Percodan] Allergy Other Verified 01/26/21 08:43 vancomycin Allergy Rash Verified 01/26/21 08:43 Family History Other Cancer Heart disease Surgical History History of appendectomy History of cholecystectomy History of lung biopsy Social History Smoking Status: Never smoker Vital Signs Vital Signs Vital Signs: 03/23/21 10:30 Temperature 97.0 F L Temperature Source Temporal Pulse Rate 83 Respiratory Rate 18 Blood Pressure 132/64 H Blood Pressure Mean 86 Blood Pressure Source Monitor Blood Pressure Position Semi-Fowlers Blood Pressure Location Right Arm Weight Weight: 250 lb Body Mass Index (BMI) 39.1 Physical Exam Const alert, oriented x3, no apparent distress and well nourished Constitutional Narrative: The patient is morbidly obese. General Appearance: cooperative, comfortable and well developed Orientation / Consciousness: awake, oriented to person, oriented to place and oriented to time HEENT normocephalic and head/scalp atraumatic Head and Scalp: normal to inspection, normocephalic and atraumatic External Ear: external ears normal Eyes PERRL and EOMs intact bilaterally General Eye: normal appearance of both eyes Resp normal respiratory effort, normal air movement, no retractions and no use of accessory muscles Effort and Inspection: able to speak in complete sentences Extremity no calf tenderness Extremity Narrative: Mild swelling and edema are noted bilaterally in the patient's lower extremities. There are no open wounds or ulcerations. A mild inflammatory erythema is noted diffusely in the gaiter areas bilaterally. General Extremity: Negative for clubbing or cyanosis Skin Wound Narrative: There are no open wounds or ulcerations in the patient's lower extremities. Neuro oriented x3, CN's II-XII intact bilaterally and moves all extremities Sensorium / Orientation: awake, alert, oriented to person, oriented to place and oriented to time Psych Appearance: grossly normal and appropriate Attitude: calm Activity / Motor Behavior: appropriate eye contact Speech: normal speech Mood & Affect: euthymic mood Thought Process: normal thought process Thought Content: normal thought content Attention / Concentration: attention grossly intact Debridement Note Debridement Note No debridement was completed: No debridement was completed today (There is no need for debridement, as there are no open wounds or ulcerations.) Post-Debridement Measurements and Additional Note: Post-Debridement Measurements/Treatment - Nurse 1 - General Ulcer Assessment Start: 03/19/21 12:15 Freq: Status: Active Protocol: CHETAN Activity Type Activity Date Activity User E-Sign Co-Sign Detail Recorded Client Recorded Date Recorded By Document 03/19/21 12:16 [id number] 03/19/21 12:17 Document 03/23/21 10:30 [id number] 03/23/21 10:32 03/19/21 03/23/21 12:16 10:30 - Today's Visit Information Type of service Nurse-only Follow-up Visit Visit (Physician/TUMBLERS SUPERVISOR ) Arrival Mode Ambulatory Ambulatory Transfer Assistance None Patient Identification Verified (Name & Yes Yes ) Patient Requires Transmission-Based No No Precautions Safety Precautions NA Finger Stick Blood Sugar(mg/dl) (if 181 indicated): Blood Sugar Stated by Patient Height and Weight Body Mass Index (BMI) 39.1 39.1 BMI Classification Obese Obese Vital Signs Temperature (97.8 F-99.1 F) 97.1 F L 97.0 F L Temperature Source Oral Temporal Pulse Rate (60-100) 83 Pulse Location Monitor Respiratory Rate (12-18) 16 18 Respiratory rate source Monitor Observation Blood Pressure (90/60-120/80) 132/64 H Blood Pressure Mean 86 Source Monitor Position Semi-Fowlers Blood Pressure Location Right Arm History Since Last Visit- (Skip if this is Patient's initial visit) Have you changed medications since your No No last visit? Any new allergies or adverse reactions No No Had a fall/change in ADL's that may No increase risk of falls Signs or symptoms of abuse and/or No No neglect since last visit Have you been in the hospital since your No No last visit? Has dressing in place as prescribed Yes No Has compression in place as prescribed Yes Yes Has offloadiing in place as prescribed N/A N/A Experienced any changes in pain level or No No management Left Footwear Regular Shoe Regular Shoe Right Footwear Regular Shoe Regular Shoe Pain Scale: 0-10 Numeric Is Patient Pain Free? Yes Yes - Nurse 1 - General Ulcer Measurement Start: 03/19/21 12:15 Freq: Status: Active Protocol: Activity Type Activity Date Activity User E-Sign Co-Sign Detail Recorded Client Recorded Date Recorded By Document 03/23/21 10:30 [id number] 03/23/21 10:32 03/23/21 10:30 Wound Center Nurse 1 Lower Limb Edema Present Yes Right Calf (cm) 51.0 Right Ankle (cm) 29.5 Left Calf (cm) 53.0 Left Ankle (cm) 31.5 - Nurse 3 - General Ulcer D/C NN Start: 03/19/21 12:15 Freq: Status: Active Protocol: Activity Type Activity Date Activity User E-Sign Co-Sign Detail Recorded Client Recorded Date Recorded By Document 03/19/21 12:16 ML [id number] 03/19/21 12:17 ML Edit Result 03/19/21 12:16 ML (1) [id number] 03/19/21 12:18 ML (1) Left - Multi-Layered Wrap Application => Unna Boot - => Bilateral ($) - Unna Boots (Bilat) ($) => 2 03/19/21 12:16 Vital Signs Temperature (97.8 F-99.1 F) 97.1 F L Temperature Source Oral Respiratory Rate (12-18) 16 Respiratory rate source Monitor Pain Scale: 0-10 Numeric Is Patient Pain Free? Yes Wound Care Nurse 3 Left -Multi-Layered Wrap Application Unna Boot - Bilateral ($) -Unna Boots (Bilat) ($) 2 Assessment/Plan Assessment/Plan (1) Lymphedema of both lower extremities: CODE(S): I89.0 - Lymphedema, not elsewhere classified (2) Leg edema: CODE(S): R60.0 - Localized edema (3) Leg swelling: CODE(S): M79.89 - Other specified soft tissue disorders (4) Venous stasis: CODE(S): I87.8 - Other specified disorders of veins (5) Chronic venous insufficiency: CODE(S): I87.2 - Venous insufficiency (chronic) (peripheral) (6) Mitral valve annular calcification: CODE(S): I05.9 - Rheumatic mitral valve disease, unspecified (7) Mild pulmonary arterial systolic hypertension: CODE(S): I27.21 - Secondary pulmonary arterial hypertension (8) Right ventricular dilation: CODE(S): I51.7 - Cardiomegaly (9) Hypothyroidism: CODE(S): E03.9 - Hypothyroidism, unspecified (10) Hypertension: CODE(S): I10 - Essential (primary) hypertension (11) Hyperlipidemia: CODE(S): E78.5 - Hyperlipidemia, unspecified (12) Rheumatoid arthritis: CODE(S): M06.9 - Rheumatoid arthritis, unspecified (13) Diabetes mellitus: CODE(S): E11.9 - Type 2 diabetes mellitus without complications PLAN: This is a 75-year-old female who presented with a longstanding history of swelling, edema, and lymphedema in her lower extremities bilaterally. As explained to the patient in detail, it appears as though most, if not all, of her symptoms are related to her lifestyle and habits. She has been encouraged to sleep in a position whereby her lower extremities are at heart level, or higher. Leg elevation has also been recommended during daytime hours. As explained to the patient, her legs should be at heart level, or higher, as much as possible. Prolonged idle sitting has been discouraged. Activity has been encouraged. Weight optimization has also been recommended. Patient has been encouraged to optimize her glycemic control and to optimize nutritional intake. The implementation of conservative treatment measures had recently been successful in reducing the amount of swelling and edema in the patient's lower extremities, and the patient had been recently discharged. She had been given a prescription for graduated compression stockings of 20 to 30 mmHg compression. However, despite a lapse of several weeks, the patient has not yet received the stockings, claiming the fault of [facility], where she had initially been measured and fitted. Furthermore, she also had an excuse for failing to seek evaluation at the [facility] at [facility], despite the passage of several weeks. As result of her recent noncompliance, the patient returned with significantly swollen and edematous lower extremities, inflammatory erythema, and blistering. We reimplemented the conservative treatment measures which had been so successful in minimizing the swelling and edema in the recent past. We applied Unna boots bilaterally, with plans to change twice weekly. The patient returns now, and appears to be at her baseline. Only slight swelling and edema are noted in the patient's lower extremities. We have measured the dimensions of both lower extremities, and intend to apply for CircAid Velcro compression garments for the lower extremities. In the interim, Unna boots are to be applied bilaterally, which will be changed twice weekly. Within the next 2 weeks, it is anticipated that the Velcro compression wraps will be obtained. The patient will return in 2 weeks, and it will be assured that she understands the means of application of these garments. Garments will be worn on a daily ba sis. In conjunction with other conservative treatment measures, such as leg elevation, avoidance of idle standing and sitting, active lifestyle, weight control measures, etc., it is hoped that the patient will keep the swelling and edema in her lower extremities under control. At this juncture, there are no open wounds or ulcerations in her lower extremities. Total time: 29 minutes.
[2021-03-26 12:07] VITALS: BP 146/75; PULSE 75; RESP 18; TEMP 36; BMI 39.1
[2021-03-30 11:49] VITALS: BP 182/73; PULSE 70; RESP 18; TEMP 36.6; BMI 39.1
[2021-04-02 12:25] VITALS: BP 137/64; PULSE 78; TEMP 35.8; BMI 39.1
[2021-04-06 11:23] VITALS: BP 158/82; PULSE 79; TEMP 36.2; BMI 39.1
== END 2021-04-18 23:59 ==
LOC: WC 10:15
PROVIDERS: PCP Family Medicine; Visit Provider Surgery
DX: I87.2 Venous insufficiency (chronic) (peripheral) (principal); I89.0 Lymphedema, not elsewhere classified; I87.8 Other specified disorders of veins; M79.89 Other specified soft tissue disorders; R60.0 Localized edema; G89.29 Other chronic pain; I11.9 Hypertensive heart disease without heart failure; I27.21 Secondary pulmonary arterial hypertension; E11.9 Type 2 diabetes mellitus without complications; E78.2 Mixed hyperlipidemia; E03.9 Hypothyroidism, unspecified; M06.9 Rheumatoid arthritis, unspecified; E66.01 Morbid (severe) obesity due to excess calories; Z68.39 Body mass index [BMI] 39.0-39.9, adult; Z79.4 Long term (current) use of insulin; Z79.1 Long term (current) use of non-steroidal anti-inflammatories (NSAID); Z79.890 Hormone replacement therapy; Z79.899 Other long term (current) drug therapy
CPT/HCPCS: 29580; 29581; 99213; G0463

== ENCOUNTER 2021-04-23 13:32 | Outpatient (RCR) | payer MEDICARE, SELFPAY ==
[2021-04-19 00:27] VITALS: BP 158/82; PULSE 79; RESP 18; TEMP 36.2; BMI 39.1
[2021-04-23 14:02] VITALS: BP 190/87; PULSE 66; RESP 18; TEMP 36.7; BMI 39.1
== END 2021-05-18 23:59 ==
LOC: WC 13:32
PROVIDERS: PCP Family Medicine; Visit Provider Surgery
DX: I89.0 Lymphedema, not elsewhere classified (principal)
CPT/HCPCS: 99212; G0463

== ENCOUNTER 2023-03-03 13:30 | Inpatient (IN) | payer MEDICARE, MEDICAID, SELFPAY ==
[2023-03-03 14:59] VITALS: BP 147/76; PULSE 80; RESP 16; TEMP 36.4; O2SAT 93
--- NOTE | 2023-03-03 15:01 | HP.PCM_ITS ---
HPI - General General Date of Admission: 03/03/23 Date of Service: 03/03/23 Chief Complaint: Here for rehabilitation. HPI Narrative BLANCO SANDOVAL, is a 77 Female who presents with followin02/27/2023 Dr. Shiv Weiner prescribed Augmentin for dysuria, polyuria, low back pain for urinary tract infection. Augmentin not started, symptoms worse, patient presented to ED. 02/28/2023 Admit to [facility]. Low back pain, dysuria, polyuria, weakness. Diabetes with hyperglycemia, weakness, urinary tract infection. IV antibiotics for urinary tract infection. IV fluids, sliding scale insulin for Diabetes Mellitus II. PT/OT for weakness. 03/01/2023 Feels better, weak, pain improved. Continue IV antibiotics. 03/03/2023 Admit to TCU with debility, here for rehabilitation, strengthening, prior to discharge home alone. [facility] Medical History Anemia Arthritis Chronic pain Chronic venous insufficiency Combined hyperlipidemia Depression Diabetes mellitus Hyperlipidemia Hypertension Hypothyroidism Hypothyroidism Leg edema Leg swelling Mild pulmonary arterial systolic hypertension Mitral valve annular calcification Non-smoker Rheumatoid arthritis Right ventricular dilation Home Medications ergocalciferol (vitamin D2) 1,250 mcg (50,000 unit) capsule (Vitamin D2) 1,250 mcg PO QWEEK Supplement 12/23/20 [History Last Taken 03/03/23 08:00] hydroxyzine HCl 25 mg tablet 25 mg PO TID PRN anxiety 12/23/20 [History Last Taken Unknown] levothyroxine 112 mcg tablet 125 mcg PO DAILY Thyroid 12/23/20 [History Last Taken Unknown] lisinopril 40 mg tablet 40 mg PO DAILY 12/23/20 [History Last Taken Unknown] meloxicam 15 mg tablet 15 mg PO DAILY 12/23/20 [History Last Taken Unknown] pramipexole 1 mg tablet 2 mg PO QHS 12/23/20 [History Last Taken Unknown] zolpidem 12.5 mg tablet,extended release,multiphase 12.5 mg PO QHS 12/23/20 [History Last Taken Unknown] insulin aspart U-100 100 unit/mL (3 mL) subcutaneous pen (Novolog FlexPen U-100 Insulin aspart) 18 unit (0.18 mL) subcut BID #0 mL 01/29/21 [Rx Last Taken Unknown] insulin degludec 100 unit/mL (3 mL) subcutaneous pen (Tresiba FlexTouch U-100 insulin) 22 unit (0.22 mL) subcut BID #0 mL 01/29/21 [Rx Last Taken Unknown] torsemide 20 mg tablet 20 mg PO BID 01/29/21 [History Last Taken Unknown] spironolactone 25 mg tablet 25 mg PO DAILY #30 tabs 03/01/21 [Rx Last Taken Unknown] amlodipine 10 mg tablet 10 mg PO DAILY BP #90 tabs 07/15/21 [Rx Last Taken Unknown] acetaminophen 325 mg tablet (Tylenol) 650 mg PO Q6H PRN Pain 1-3 03/03/23 [History Last Taken Unknown] albuterol sulfate 90 mcg/actuation aerosol inhaler 2 inh inhalation Q6H PRN shortness of breath or wheezing 03/03/23 [History Last Taken Unknown] baclofen 10 mg tablet 10 mg PO DAILY Muscle Spasms 03/03/23 [History Last Taken Unknown] buspirone 5 mg tablet 5 mg PO BID PRN anxiety 03/03/23 [History Last Taken Unknown] hydralazine 25 mg tablet 25 mg PO TID BP 03/03/23 [History Last Taken Unknown] insulin glargine 100 unit/mL subcutaneous solution 19 unit subcut DAILY Diabetes 03/03/23 [History Last Taken 03/03/23] insulin lispro 100 unit/mL subcutaneous pen (Humalog KwikPen (U-100) Insulin) 10 unit subcut TID Diabetes 03/03/23 [History Last Taken Unknown] melatonin 3 mg capsule 3 mg PO QHS Sleep 03/03/23 [History Last Taken Unknown] paroxetine HCl 20 mg tablet (Paxil) 20 mg PO DAILY Mood 03/03/23 [History Last Taken Unknown] pramipexole 0.125 mg tablet 0.25 mg PO QHS Overactive Bladder 03/03/23 [History Last Taken Unknown] rosuvastatin 10 mg tablet 10 mg PO DAILY Cholesterol 03/03/23 [History Last Taken Unknown] Allergy/AdvReac Type Severity Reaction Status Date / Time aspirin [From Percodan] Allergy Other Verified 01/26/21 08:43 oxycodone [From Percodan] Allergy Other Verified 01/26/21 08:43 vancomycin Allergy Rash Verified 01/26/21 08:43 Family History Other Cancer Heart disease Surgical History History of appendectomy History of cholecystectomy History of lung biopsy Social History household members: none Smoking Status: Never smoker alcohol intake: current details: 1 mixed drink every 2 weeks. substance use type: does not use ROS Constitutional Constitutional: Denies chills, fever(s) or weight gain ENT HEENT: Denies headache(s), nasal congestion or nasal discharge Cardiovascular Cardiovascular: Denies chest pain or palpitations Respiratory/Chest Respiratory/Chest: Denies cough, excessive phlegm production or shortness of breath with exertion Gastrointestinal Gastrointestinal: Denies abdominal pain, nausea or vomiting Genitourinary Genitourinary: Denies dysuria Musculoskeletal Musculoskeletal: Denies joint pain or joint swelling Integumentary Integumentary: Denies rash or wounds Neurologic Neurologic: Denies focal weakness, numbness or tingling Psychiatric Psychiatric: Denies anxiety, auditory hallucinations, depression, homicidal ideation or suicidal ideation Physical Exam Const alert General Appearance: cooperative HEENT normocephalic Eyes PERRL and EOMs intact bilaterally Neck supple, no JVD and no carotid bruits Resp normal respiratory effort, normal air movement and clear to auscultation bilaterally Cardio regular rate and regular rhythm GI normal to inspection, nondistended, normoactive bowel sounds, non-tender and non-distended Extremity normal capillary refill General Extremity: Negative for edema Skin no rashes or lesions noted General Skin Exam: no breakdown Psych affect normal Appearance: appropriate Assessment & Plan Assessment/Plan (1) Debility: (2) Urinary tract infection: (3) Hypertension: (4) Rheumatoid arthritis: (5) Diabetes mellitus: (6) Edema: (7) Hypothyroidism: (8) Depression: (9) Restless leg syndrome: (10) Insomnia: PLAN: Plan 77 year old female with below past medical history hospitalized for weakness, urinary tract infection, low back pain, admitted to TCU with debility, here for rehabilitation, strengthening, prior to discharge home alone. * Debility - PT/OT. * Pain - Tylenol 1000mg Q6h prn pain (1-10). * Bowel - senna/colace 1 tablet bid, Magnesium citrate 300ml daily prn. * Adult immunization - Administer pneumonia vaccine, covid19 vaccine, flu vaccine as appropriate. * DVT prophylaxis - Lovenox 40mg sc daily. * Shortness of breath - Albuterol 2 puffs q6h prn. * Hypertension - Amlodipine 10mg daily, Hydralazine 25mg tid. * Hyperlipidemia - Atorvastatin 20mg qhs. * Muscle spasm - Baclofen 10mg daily. * Anxiety - Buspar 5mg bid prn, stable chronic intermediate use, GDR not recommended. * Vitamin D deficiency - D2 50,000 units per week. * Nutrition - Glucerna shake 120ml po tidcm. * Diabetes Mellitus II - Glargine 19 units daily, Lispro 10 units tidac. * Hypothyroidism - Levothyroxine 125mcg daily. * Insomnia - Melatonin 3mg qhs. * Skin irritation - Calmoseptine topical bid. * Tinea Corporis - Nystatin powder topical bid, Mycolog topical bid. * Depression - Paroxetine 20mg qhs, stable chronic intermediate use, GDR not recommended. * Restless Leg syndrome - Mirapex 0.25mg qhs.
[2023-03-03 15:07] VITALS: BMI 36.5
[2023-03-03] MEDS: Insulin Lispro 100 UNIT/ML INSULN.PEN 10 UNIT SC (17:54)
[2023-03-03] MEDS: Glucerna Shake 120 ML LIQUID PO (17:56)
[2023-03-03 18:02] LABS: Bedside Glucose 151 mg/dL (74-106)
[2023-03-03] MEDS: Pramipexole Di-HCl 0.25 MG Tablet PO (21:17)
[2023-03-03] MEDS: MELATONIN 3 MG TABLET PO (21:17)
[2023-03-03] MEDS: Atorvastatin Calcium 20 MG Tablet PO (21:17)
[2023-03-03] MEDS: Menthol/Lanolin/Calamine/Znox 113 GM Tube 1 APPLIC TOPICAL (21:17)
[2023-03-03] MEDS: Nystatin/Triamcin Cream Tube 1 APPLIC TOPICAL (21:18)
[2023-03-03 21:20] VITALS: BP 140/60; PULSE 90
[2023-03-03] MEDS: hydrALAZINE 25 MG Tablet PO (21:20)
[2023-03-03] MEDS: Acetaminophen 500 MG Tablet 1000 MG PO (23:59)
[2023-03-04 01:08] LABS: Bedside Glucose 182 mg/dL (74-106)
[2023-03-04] MEDS: Levothyroxine 125 MCG Tablet PO (05:47)
[2023-03-04 05:48] VITALS: BP 154/65; PULSE 79
[2023-03-04] MEDS: Enoxaparin 40 MG/0.4 ML Syringe SC (05:48)
[2023-03-04] MEDS: hydrALAZINE 25 MG Tablet PO ×3 (05:48→22:18)
[2023-03-04] MEDS: Glucerna Shake 120 ML LIQUID PO ×3 (08:15→17:36)
[2023-03-04] MEDS: Baclofen 10 MG Tablet PO (08:15)
[2023-03-04] MEDS: Insulin Lispro 100 UNIT/ML INSULN.PEN 10 UNIT SC ×3 (08:15→17:33)
[2023-03-04] MEDS: Senna/Docusate Sodium 1 Tablet PO ×2 (09:19→22:18)
[2023-03-04] MEDS: Paroxetine 20 MG Tablet PO (09:19)
[2023-03-04] MEDS: amLODIPine 10 MG Tablet PO (09:19)
[2023-03-04] MEDS: Menthol/Lanolin/Calamine/Znox 113 GM Tube 1 APPLIC TOPICAL ×2 (09:20→22:20)
[2023-03-04] MEDS: Nystatin/Triamcin Cream Tube 1 APPLIC TOPICAL ×2 (09:22→22:21)
[2023-03-04] MEDS: Insulin Glargine-YFGN 100 UNIT/ML Pen 19 UNIT SC (09:24)
[2023-03-04] MEDS: Tuberculin,Purif.prot.deriv. 50 TU/ML Vial 0.1 ML ID (11:05)
[2023-03-04 11:48] LABS: Bedside Glucose 189 mg/dL (74-106)
[2023-03-04 12:05] LABS: Bedside Glucose 344 mg/dL (74-106)
[2023-03-04 13:42] VITALS: PULSE 78
[2023-03-04 16:00] VITALS: BP 133/55; PULSE 88; RESP 15; TEMP 36.9; O2SAT 93
[2023-03-04 17:48] LABS: Bedside Glucose 326 mg/dL (74-106)
[2023-03-04 21:24] LABS: Bedside Glucose 231 mg/dL (74-106)
[2023-03-04 22:18] VITALS: BP 140/69; PULSE 97
[2023-03-04] MEDS: MELATONIN 3 MG TABLET PO (22:18)
[2023-03-04] MEDS: Pramipexole Di-HCl 0.25 MG Tablet PO (22:18)
[2023-03-04] MEDS: Acetaminophen 500 MG Tablet 1000 MG PO (22:18)
[2023-03-04] MEDS: Atorvastatin Calcium 20 MG Tablet PO (22:18)
[2023-03-05 05:35] VITALS: BP 152/77; PULSE 87
[2023-03-05] MEDS: Enoxaparin 40 MG/0.4 ML Syringe SC (05:35)
[2023-03-05] MEDS: hydrALAZINE 25 MG Tablet PO ×3 (05:35→21:12)
[2023-03-05] MEDS: Levothyroxine 125 MCG Tablet PO (05:35)
[2023-03-05 06:21] LABS: Bedside Glucose 212 mg/dL (74-106)
[2023-03-05] MEDS: Insulin Lispro 100 UNIT/ML INSULN.PEN 10 UNIT SC ×3 (07:48→17:53)
[2023-03-05] MEDS: Insulin Glargine-YFGN 100 UNIT/ML Pen 19 UNIT SC (07:49)
[2023-03-05] MEDS: Menthol/Lanolin/Calamine/Znox 113 GM Tube 1 APPLIC TOPICAL ×2 (07:50→22:20)
[2023-03-05] MEDS: Senna/Docusate Sodium 1 Tablet PO ×2 (07:52→21:12)
[2023-03-05] MEDS: Baclofen 10 MG Tablet PO (07:53)
[2023-03-05] MEDS: Paroxetine 20 MG Tablet PO (07:53)
[2023-03-05] MEDS: amLODIPine 10 MG Tablet PO (07:53)
[2023-03-05] MEDS: Nystatin/Triamcin Cream Tube 1 APPLIC TOPICAL ×2 (07:55→22:20)
[2023-03-05] MEDS: Glucerna Shake 120 ML LIQUID PO ×2 (08:04→17:53)
[2023-03-05 14:50] LABS: Bedside Glucose 236 mg/dL (74-106)
[2023-03-05 14:56] VITALS: BP 120/61; PULSE 84; RESP 16; TEMP 37.1; O2SAT 99
[2023-03-05 14:58] VITALS: BP 120/61; PULSE 84
[2023-03-05 17:30] LABS: Bedside Glucose 146 mg/dL (74-106)
[2023-03-05 21:12] VITALS: BP 120/60; PULSE 87
[2023-03-05] MEDS: Pramipexole Di-HCl 0.25 MG Tablet PO (21:12)
[2023-03-05] MEDS: MELATONIN 3 MG TABLET PO (21:12)
[2023-03-05] MEDS: Atorvastatin Calcium 20 MG Tablet PO (21:12)
[2023-03-05 21:30] LABS: Bedside Glucose 224 mg/dL (74-106)
[2023-03-06] MEDS: Levothyroxine 125 MCG Tablet PO (05:32)
[2023-03-06 05:33] VITALS: BP 134/76; PULSE 90
[2023-03-06] MEDS: Enoxaparin 40 MG/0.4 ML Syringe SC (05:33)
[2023-03-06] MEDS: hydrALAZINE 25 MG Tablet PO ×3 (05:33→20:53)
[2023-03-06 06:51] LABS: Bedside Glucose 189 mg/dL (74-106)
[2023-03-06] MEDS: FLUCONAZOLE 150 MG TABLET PO (08:30)
[2023-03-06] MEDS: Glucerna Shake 120 ML LIQUID PO ×3 (08:31→17:43)
[2023-03-06] MEDS: Insulin Lispro 100 UNIT/ML INSULN.PEN 10 UNIT SC ×3 (08:31→17:44)
[2023-03-06] MEDS: Baclofen 10 MG Tablet PO (08:32)
[2023-03-06 10:00] VITALS: PULSE 78
[2023-03-06] MEDS: Paroxetine 20 MG Tablet PO (10:05)
[2023-03-06] MEDS: Insulin Glargine-YFGN 100 UNIT/ML Pen 19 UNIT SC (10:05)
[2023-03-06] MEDS: amLODIPine 10 MG Tablet PO (10:06)
[2023-03-06] MEDS: Menthol/Lanolin/Calamine/Znox 113 GM Tube 1 APPLIC TOPICAL ×2 (10:09→20:53)
[2023-03-06] MEDS: Nystatin/Triamcin Cream Tube 1 APPLIC TOPICAL ×2 (10:09→20:54)
[2023-03-06 12:01] LABS: Absolute Lymphocyte Count 1.68 X10^3/uL (0.83-4.51); Absolute Neutrophil Count 6.7 X10^3/uL (2.0-7.7); Basophil# 0.09 X10^3/uL; Basophil% 0.9 % (0-1); Eosinophil# 0.36 X10^3/uL; Eosinophils% 3.7 % (0-5); Hematocrit 38.9 % (37-47); Hemoglobin 12.2 g/dL (12.0-15.0); Lymphocyte # 1.68 X10^3/ul (0.83-4.51); Lymphocyte % 17.2 % (19-41); Mean Corp Hgb Conc 31.4 g/dL (32-36); Mean Corpuscular Hgb 28.4 pg (27.0-32.0); Mean Corpuscular Volume 90.5 fL (81-99); Mean Platelet Vol. 9.6 fl (6.2-12.0); Monocyte# 0.83 X10^3/uL; Monocyte% 8.5 % (0-10); NRBC Flagged by Analyzer 0 % (0-5); Neutrophil # 6.73 X10^3/uL (2.7-7.7); Neutrophil % 69.2 % (47-70); Platelet Count 365 K/mm3 (150-450); RBC Distribution Width CV 12.9 % (11.6-14.6); RBC Distribution Width SD 42.7 fl (35.1-43.9); White Blood Count 9.7 K/mm3 (4.4-11.0)
[2023-03-06 12:28] LABS: Bedside Glucose 277 mg/dL (74-106)
[2023-03-06 12:56] VITALS: PULSE 78
[2023-03-06 13:01] LABS: Anion Gap 9 (5-15); BUN 48 mg/dL (7-18); BUN/Creat Ratio 36.4 RATIO (10-20); Calcium,Total 8.8 mg/dL (8.5-10.1); Chloride 100 mmol/L (98-107); Creatinine, Serum 1.32 mg/dL (0.55-1.02); EST Glomerular Filtration Rate 41 mL/min (>60); Est Glom Filt Rate - Afr Amer 50 mL/min (>60); Estimated Creatinine Clearance 33.61 ml/min; Glucose 286 mg/dL (74-106); Potassium 4.7 mmol/L (3.5-5.1); Sodium Level 133 mmol/L (136-145)
--- NOTE | 2023-03-06 13:52 | NURSING ---
Deli Slicer Note; Activity asset: Complete Radha is independent in her choice of daily activities. Her son will be bringing in her computer and other items she may need. She watches tv, reads and enjoys saduko and word search puzzles. She welcomes visit from the automotive service director and therapy dog when available. Staff will remind her of daily activities and respect her right to say no.
[2023-03-06 14:59] VITALS: BP 147/69; PULSE 74; RESP 16; TEMP 36.6; O2SAT 98
--- NOTE | 2023-03-06 16:22 | CHAPLAIN ---
Type of Pastoral Visit _x__ Initial Visit ___ Follow-up Visit ___ On-call Visit ___ General Patient Visit ___ Spiritual Assessment ___ Family Conference ___ Bereavement ___ Rapid Response ___ Code Blue ___ Other (describe below) Pastoral Care Referral From _x__ Patient ___ Family ___ Nurse ___ Physician ___ Firer Retort ___ Printing Sales Representative ___ Other (describe below) Sacrament/Intervention _x__ Active listening ___ Anointing ___ Evangelical ___ Bereavement ___ Communion _x__ Rosalind exploration ___ _x__ Life review _x__ Prayer ___ Reconciliation ___ Sacrament of Sick _x__ Supportive presence ___ Wedding ___ Other (describe below) Pastoral Comments patient is pleasant and welcoming; pt gives her health update; pt admits that she needs to work on her health and well being; pt acknowledges that she will need to sell her house sometime soon to have a better situation; pt has a cat for companionship and misses the cat while in the TCU; pt has one son and two grandchildren for good family support; pt states that years ago she was involved in a yarsanism but has lacked participation over the last years; pt admits need to find a yarsanism to connect with again but knows it will depend on her health; pt welcomes spiritual care support from the hospital grinding machine operator and for prayer to be given
--- NOTE | 2023-03-06 16:28 | NURSING ---
Family given update additional staff members have covid.
--- NOTE | 2023-03-06 16:29 | CASEMGMT ---
Social Work SAMUEL met with pt and completed a psychosocial assessment. SW verified contacts. Pt lives at home alone. She states a neighbor assists with taking trash out and bringing mail in but she has been able to do all other daily tasks. Pt son does stop by to check on her. Pt plans to return home alone at time of discharge. SAMUEL educated pt on [facility] benefit and that NRD is 03/07 and continued stay is not guaranteed. SAMUEL will continue to follow for dc planning. COLT Larios
[2023-03-06 16:32] LABS: Bedside Glucose 171 mg/dL (74-106)
[2023-03-06] MEDS: Atorvastatin Calcium 20 MG Tablet PO (20:52)
[2023-03-06 20:53] VITALS: BP 133/60; PULSE 72
[2023-03-06] MEDS: Pramipexole Di-HCl 0.25 MG Tablet PO (20:54)
[2023-03-06] MEDS: MELATONIN 3 MG TABLET PO (20:54)
[2023-03-06] MEDS: Senna/Docusate Sodium 1 Tablet PO (20:55)
[2023-03-06 21:32] LABS: Bedside Glucose 212 mg/dL (74-106)
[2023-03-06] MEDS: busPIRone 5 MG Tablet PO (22:26)
[2023-03-07] MEDS: Enoxaparin 40 MG/0.4 ML Syringe SC (06:43)
[2023-03-07] MEDS: Levothyroxine 125 MCG Tablet PO (06:43)
[2023-03-07] MEDS: Acetaminophen 500 MG Tablet 1000 MG PO (06:43)
[2023-03-07] MEDS: Insulin Lispro 100 UNIT/ML INSULN.PEN 10 UNIT SC ×3 (06:44→17:54)
[2023-03-07 06:45] VITALS: BP 166/64; PULSE 66
[2023-03-07] MEDS: hydrALAZINE 25 MG Tablet PO ×3 (06:45→22:23)
[2023-03-07 06:53] LABS: Bedside Glucose 188 mg/dL (74-106)
[2023-03-07] MEDS: hydrOXYzine PAM 25 MG Capsule PO ×2 (08:51→14:50)
[2023-03-07] MEDS: Baclofen 10 MG Tablet PO (08:52)
[2023-03-07] MEDS: Menthol/Lanolin/Calamine/Znox 113 GM Tube 1 APPLIC TOPICAL ×2 (08:52→22:27)
[2023-03-07] MEDS: Insulin Glargine-YFGN 100 UNIT/ML Pen 19 UNIT SC (08:52)
[2023-03-07] MEDS: Glucerna Shake 120 ML LIQUID PO ×3 (08:52→17:53)
[2023-03-07] MEDS: Nystatin/Triamcin Cream Tube 1 APPLIC TOPICAL ×2 (08:53→22:30)
[2023-03-07] MEDS: Paroxetine 20 MG Tablet PO (08:54)
[2023-03-07] MEDS: amLODIPine 10 MG Tablet PO (08:54)
[2023-03-07] MEDS: Senna/Docusate Sodium 1 Tablet PO (08:54)
[2023-03-07] MEDS: Tolterodine Tartrate 2 MG CAP.SA PO (08:57)
[2023-03-07 12:11] LABS: Bedside Glucose 242 mg/dL (74-106)
[2023-03-07 14:08] VITALS: BP 157/68; PULSE 89
--- NOTE | 2023-03-07 14:56 | PCM.PN.DRR ---
TCU RX Drug Regimen Review Subjective/Objective Subjective/Objective: Subjective: 77 YOF admitted to TCU S/P hospitalization from an outside facility on 02/27/23. Patient was admitted to the hospital for UTI/weakness/dysuria. Admitted 03/03/23 to TCU for strengthening and rehabilitation prior to discharge home where she resides alone. Objective: Allergies aspirin [From Percodan] Allergy (Verified 01/26/21 08:43) Other oxycodone [From Percodan] Allergy (Verified 01/26/21 08:43) Other vancomycin Allergy (Verified 01/26/21 08:43) Rash Current Medications Generic Name Dose Route Start Last Admin Trade Name Freq PRN Reason Stop Dose Admin Acetaminophen 1,000 mg 03/03/23 16:51 03/07/23 06:43 Acetaminophen 500 Mg Tablet PO 1,000 mg Q6H PRN Administration Pain 1-10 Albuterol Sulfate 2 puff 03/03/23 16:15 Albuterol Ih (6.7 Gm) 1 Puff Inhaler INHALATION Q6H PRN shortness of breath or wheezing Amlodipine Besylate 10 mg 03/04/23 10:00 03/07/23 08:54 Amlodipine 10 Mg Tablet PO 10 mg DAILY PRATIK Administration Atorvastatin Calcium 20 mg 03/03/23 22:00 03/06/23 20:52 Atorvastatin Calcium 20 Mg Tablet PO 20 mg QHS PRATIK Administration Baclofen 10 mg 03/04/23 08:00 03/07/23 08:52 Baclofen 10 Mg Tablet PO 10 mg DAILYCM PRATIK Administration Buspirone HCl 5 mg 03/03/23 16:01 03/06/23 22:26 Buspirone 5 Mg Tablet PO 5 mg BID PRN Administration anxiety Calamine/Phenol 1 applic 03/03/23 22:00 03/07/23 08:52 Menthol/Lanolin/Calamine/Znox 113 Gm Tube TOPICAL 1 applic BID PRATIK Administration Protocol Enoxaparin Sodium 40 mg 03/04/23 06:00 03/07/23 06:43 Enoxaparin 40 Mg/0.4 Ml Syringe SC 40 mg DAILY@0600 PRATIK Administration Ergocalciferol 1.25 mg 03/10/23 08:00 Ergocalciferol 1.25 Mg (50, 000 Unit) Capsule PO QWEEK [facility] Hydralazine HCl 25 mg 03/03/23 22:00 03/07/23 14:08 Hydralazine 25 Mg Tablet PO 25 mg TID PRATIK Administration Hydroxyzine Pamoate 25 mg 03/07/23 08:07 03/07/23 14:50 Hydroxyzine Juanita 25 Mg Capsule PO 25 mg TID PRN PRN Administration ITCHING/ANXIETY Insulin Glargine 19 unit 03/04/23 10:00 03/07/23 08:52 Insulin Glargine-Yfgn 100 Unit/Ml Pen SC 19 unit DAILY PRATIK Administration Insulin Human Lispro 10 unit 03/03/23 16:45 03/07/23 11:54 Insulin Lispro 100 Unit/Ml Insuln.Pen SC 10 unit TIDAC PRATIK Administration Levothyroxine Sodium 125 mcg 03/04/23 06:00 03/07/23 06:43 Levothyroxine 125 Mcg Tablet PO 125 mcg DAILY@0600 PRATIK Administration Magnesium Citrate 300 ml 03/03/23 16:40 Magnesium Citrate 300 Ml PO DAILY PRN CONSTIPATION Melatonin 3 mg 03/03/23 22:00 03/06/23 20:54 Melatonin 3 Mg Tablet PO 3 mg QHS PRATIK Administration Nutritional Formula (Lactose Free) 120 ml 03/03/23 17:45 03/07/23 11:48 Glucerna Shake 120 Ml Liquid PO 120 ml TIDCM PRATIK Administration Nystatin 1 applic 03/03/23 22:00 03/07/23 08:54 Nystatin Powder 30 Gm Bottle TOPICAL 1 applic BID RPATIK Administration Protocol Nystatin/Triamcinolone Acetonide 1 applic 03/03/23 22:00 03/07/23 08:53 Nystatin/Triamcin Cream Tube TOPICAL 1 applic BID PRATIK Administration Protocol Paroxetine HCl 20 mg 03/04/23 10:00 03/07/23 08:54 Paroxetine 20 Mg Tablet PO 20 mg DAILY PRATIK Administration Pramipexole Dihydrochloride 0.25 mg 03/03/23 22:00 03/06/23 20:54 Pramipexole Di-Hcl 0.25 Mg Tablet PO 0.25 mg QHS PRATIK Administration Senna/Docusate Sodium 1 tablet 03/03/23 22:00 03/07/23 08:54 Senna/Docusate Sodium 1 Tablet PO 1 tablet BID PRATIK Administration Tolterodine Tartrate 2 mg 03/07/23 10:00 03/07/23 08:57 Tolterodine Tartrate 2 Mg Cap.Sa PO 2 mg DAILY PRATIK Administration Tuberculin PPD 0.1 ml 03/11/23 10:00 Tuberculin,Purif.Prot.Deriv. 50 Tu/Ml Vial ID 03/11/23 10:01 X1 ONE Problem List (Updated 03/03/23 @ 15:[address] Baljit Jaffe MD) Insomnia (Acute) Restless leg syndrome (Acute) Depression (Acute) Edema (Acute) Urinary tract infection (Acute) Debility (Acute) Hypothyroidism (Acute) Hypertension (Chronic) Rheumatoid arthritis (Acute) Diabetes mellitus (Acute) Vital Signs Temp Pulse Resp BP Pulse Ox O2 Del Method 97.9 F 89 16 157/68 H 98 Room Air 03/06/23 14:59 03/07/23 14:08 03/06/23 14:59 03/07/23 14:08 03/06/23 14:59 03/06/23 14:59 Oxygen Delivery Method Room Air Weight: 105.715 kg Body Mass Index (BMI) 36.5 Sodium 133 mmol/L (136-145) L 03/06/23 11:54 Potassium 4.7 mmol/L (3.5-5.1) 03/06/23 11:54 Chloride 100 mmol/L (98-107) 03/06/23 11:54 Carbon Dioxide 24.0 mmol/L (21.0-32.0) 03/06/23 11:54 Anion Gap 9 (5-15) 03/06/23 11:54 BUN 48 mg/dL (7-18) H 03/06/23 11:54 Creatinine 1.32 mg/dL (0.55-1.02) H 03/06/23 11:54 Est GFR (MDRD) Af Amer 50 mL/min (>60) L 03/06/23 11:54 Est GFR (MDRD) Non-Af 41 mL/min (>60) L 03/06/23 11:54 BUN/Creatinine Ratio 36.4 RATIO (10-20) H 03/06/23 11:54 Glucose 286 mg/dL (74-106) H 03/06/23 11:54 Assessment/Plan: 1. Pain: Tylenol 1000mg PO Q6h PRN pain 1-10. Please continue to montior for increased/decreased S/S pain, PRN medication usage. - To date, the patient has had 3 doses of Tylenol since admission. Premedication pain rated 6-8/10, post-med pain rated 0-4. It appears the patient's pain is being managed at this time. 2. HTN/HLD: Norvasc 10mg PO daily, Lipitor 20mg PO QHS, Hydralazine 25mg PO TID. Please continue to monitor BP (range 120-166/60-76), lipid panel annually or sooner if clinically indicated, muscle soreness, lower extremity edema. 3. Type II Diabetes: Glargine 19 units SC Daily, Humalog 10 unit SC TIDCM. Please continue to monitor BG levels (Range 146-277), A1c (none on file), S/S hypoglycemia. 4. Hypothyroidism: Synthroid 125mcg PO Daily. Please continue to monitor thyroid function as clinically indicated, monitor for S/S hypothyroidism. 5. RLS: Pramipexole 0.25mg PO QHS. Please continue to monitor for medication effectiveness, dizziness, confusion. 6. Muscle Spasm: Baclofen 10mg PO daily. Please continue to monitor for weakness, nausea, dizziness, medication effectiveness. 7. Urinary: Detrol 2mg PO daily. Please continue to monitor urinary frequency/urgency, urinary retention. 8. DVT Prophylaxis: Lovenox 40mg SC Daily. Please continue to monitor for S/S bleeding/bruising, CrCl (last 33mL/min on 03/06). 9. SOB: Albuterol 2 puff Q6h PRN. Please continue to monitor HR, PRN medication use, medication effectiveness. 10. Vitamin D Deficiency: Ergocalciferol 1.25mg PO Weekly. Please continue to monitor Vitamin D levels as clinically indicated. 11. Insomnia: melatonin 3mg PO QHS. Please continue to monitor for medication effectiveness, oversedation. If medication appears ineffective, consider administering medication at least 2hrs prior to desired bedtime to allow medication to be effective. 12. Skin Integrity: Calmoseptine topically BID, Nystatin Powder topically BID, Mycolog topical cream BID. Please continue to monitor for skin irritation, skin redness, skin breakdown. 13. Bowel: Senna/Docusate 1 tab PO BID, Magnesium Citrate 300mL PO Daily PRN. Please continue to monitor for increased/decreased constipation and/or diarrhea. - The patient' last BM was documented on 03/05/23. Please continue to monitor. Assessment/Plan for indications treated with psychotropic medications: 14. Depression: Paxil 20mg PO QHS. This is a [employer] Criteria medication which can cause oversedation and drowsiness in patients older than 65. Please continue to monitor closely. Please consider a GDR by 08/2023 if clinically indicated, thank you. 15. Anxiety: Buspar 5mg PO BID PRN, Hydroxyzine 25mg PO TID PRN. Please continue to monitor PRN use, medication effectiveness. Please consider a GDR by 08/2022 if clinically indicated, thank you. Medical chart and medication regimen reviewed. The following medication irregularities or issues were identified: *1. Hyperlipidemia: The patient does not have a lipid panel on file per EMR review. Please consider ordering a lipid panel if clinically indicated, thank you. *2. Type II DM: Patient's BG levels have been elevated. Please consider increasing daily insulin doses if clinically indicated. Also, please consider obtaining an A1c as there is not one on file per EMR review, thank you. *3. Vitamin D Deficiency: The patient's last Vitamin D level on file is from 2020. Please consider ordering a Vitamin D level if clinically indicated, thank you. *4. Hypothyroidism: No TSH level on file. Please consider obtaining level if clinically indicated, thank you. Date Date of Note:: 03/07/23
[2023-03-07 16:00] VITALS: BP 150/60; PULSE 75; RESP 14; TEMP 36.6; O2SAT 98
[2023-03-07 18:23] LABS: Bedside Glucose 174 mg/dL (74-106)
[2023-03-07 22:06] LABS: Bedside Glucose 113 mg/dL (74-106)
[2023-03-07 22:23] VITALS: BP 153/56; PULSE 76
[2023-03-07] MEDS: Pramipexole Di-HCl 0.25 MG Tablet PO (22:23)
[2023-03-07] MEDS: Atorvastatin Calcium 20 MG Tablet PO (22:23)
[2023-03-07] MEDS: MELATONIN 3 MG TABLET PO (22:23)
[2023-03-07] MEDS: Petrolatum 33% Tube 1 APPLIC TOPICAL (22:28)
[2023-03-08] MEDS: Levothyroxine 125 MCG Tablet PO (06:05)
[2023-03-08] MEDS: Enoxaparin 40 MG/0.4 ML Syringe SC (06:06)
[2023-03-08 06:07] VITALS: BP 163/74; PULSE 95
[2023-03-08] MEDS: hydrALAZINE 25 MG Tablet PO ×3 (06:07→21:38)
[2023-03-08 06:38] LABS: Bedside Glucose 165 mg/dL (74-106)
[2023-03-08] MEDS: Insulin Lispro 100 UNIT/ML INSULN.PEN 10 UNIT SC ×3 (06:39→18:09)
[2023-03-08] MEDS: Glucerna Shake 120 ML LIQUID PO ×3 (09:17→18:10)
[2023-03-08] MEDS: Paroxetine 20 MG Tablet PO (09:18)
[2023-03-08] MEDS: Baclofen 10 MG Tablet PO (09:18)
[2023-03-08] MEDS: amLODIPine 10 MG Tablet PO (09:19)
[2023-03-08] MEDS: Tolterodine Tartrate 2 MG CAP.SA PO (09:19)
[2023-03-08] MEDS: Petrolatum 33% Tube 1 APPLIC TOPICAL ×2 (09:20→21:44)
[2023-03-08] MEDS: Senna/Docusate Sodium 1 Tablet PO (09:20)
[2023-03-08] MEDS: Nystatin/Triamcin Cream Tube 1 APPLIC TOPICAL ×2 (09:23→21:40)
[2023-03-08] MEDS: Menthol/Lanolin/Calamine/Znox 113 GM Tube 1 APPLIC TOPICAL ×2 (09:25→21:39)
[2023-03-08] MEDS: Insulin Glargine-YFGN 100 UNIT/ML Pen 19 UNIT SC (09:27)
[2023-03-08] MEDS: hydrOXYzine PAM 25 MG Capsule PO ×2 (09:32→21:37)
--- NOTE | 2023-03-08 09:55 | CASEMGMT ---
Addendum entered by Laura Avendano 03/10/23 09:52: Medicaid application submitted to [facility] - . Original Note: Social Work IDT met with patient and son for care plan meeting. Discussed patient's progress in PT/OT/SN. Educated to [facility] insurance with NRD 03/15, EDC 03/18. Pt lives at home alone.Son expressed concerns with the conditions of pt's home; he would prefer pt not return home. The home needs a lot of repairs and it is not set up for pt's physical needs. Son states she has bad days and does not eat meals well, etc. Son interested in AL and mentioned [facility] housing. Son provided pt already with an application for [facility]. SW provided list of other ALs, educated to Medicaid ALs/AL Waiver. Provided resources for the community if pt does go home in between DC from TCU and AL. Provided resources for MOW, [employer], [place], nonskilled [employer], ramps/hand rails. SW offered to refer for Medicaid application. Son and pt agreed. Pt can answer ARMANDO questions. Pt would like to complete advanced directives. SW retrieved son's address. SW to complete. Email referral to [facility]. PORSCHE MedinaW
[2023-03-08 11:10] VITALS: PULSE 71; RESP 18
[2023-03-08 11:27] LABS: Bedside Glucose 228 mg/dL (74-106)
--- NOTE | 2023-03-08 11:30 | PCM.CONS.GEN ---
Assessment & Plan Assessment/Plan (1) Type 2 diabetes mellitus with diabetic polyneuropathy: PLAN: Patient examined evaluated. Recommend compression elevation exercise for edema management. We will order ammonium lactate to bilateral lower extremity daily application. Toenails x10 debrided in length and thickness without incident using sterile nail nippers. Patient follow-up outpatient for nail care (2) Acquired lymphedema: (3) Tinea unguium: (4) Pain in right toe(s): (5) Pain in left toe(s): HPI Consult Data Date of Consult: 03/08/23 HPI Narrative HPI Narrative: BLANCO SANDOVAL, is a 77 F who was seen bedside for nail care in setting of type 2 diabetes neuropathy and lymphedema. Patient notes pain toenails 1 through 5 bilaterally. Patient has history of lymphedema with stasis dermatitis to bilateral lower extremities. Decently controlled today not causing patient any issues. [facility] Medical History Anemia Arthritis Chronic pain Chronic venous insufficiency Combined hyperlipidemia Depression Diabetes mellitus Hyperlipidemia Hypertension Hypothyroidism Hypothyroidism Leg edema Leg swelling Mild pulmonary arterial systolic hypertension Mitral valve annular calcification Non-smoker Rheumatoid arthritis Right ventricular dilation Home Medications ergocalciferol (vitamin D2) 1,250 mcg (50,000 unit) capsule (Vitamin D2) 1,250 mcg PO QWEEK Supplement 12/23/20 [History Last Taken 03/03/23 08:00] hydroxyzine HCl 25 mg tablet 25 mg PO TID PRN anxiety 12/23/20 [History Last Taken Unknown] levothyroxine 112 mcg tablet 125 mcg PO DAILY Thyroid 12/23/20 [History Last Taken Unknown] lisinopril 40 mg tablet 40 mg PO DAILY 12/23/20 [History Last Taken Unknown] meloxicam 15 mg tablet 15 mg PO DAILY 12/23/20 [History Last Taken Unknown] pramipexole 1 mg tablet 2 mg PO QHS 12/23/20 [History Last Taken Unknown] zolpidem 12.5 mg tablet,extended release,multiphase 12.5 mg PO QHS 12/23/20 [History Last Taken Unknown] insulin aspart U-100 100 unit/mL (3 mL) subcutaneous pen (Novolog FlexPen U-100 Insulin aspart) 18 unit (0.18 mL) subcut BID #0 mL 01/29/21 [Rx Last Taken Unknown] insulin degludec 100 unit/mL (3 mL) subcutaneous pen (Tresiba FlexTouch U-100 insulin) 22 unit (0.22 mL) subcut BID #0 mL 01/29/21 [Rx Last Taken Unknown] torsemide 20 mg tablet 20 mg PO BID 01/29/21 [History Last Taken Unknown] spironolactone 25 mg tablet 25 mg PO DAILY #30 tabs 03/01/21 [Rx Last Taken Unknown] amlodipine 10 mg tablet 10 mg PO DAILY BP #90 tabs 07/15/21 [Rx Last Taken Unknown] acetaminophen 325 mg tablet (Tylenol) 650 mg PO Q6H PRN Pain 1-3 03/03/23 [History Last Taken Unknown] albuterol sulfate 90 mcg/actuation aerosol inhaler 2 inh inhalation Q6H PRN shortness of breath or wheezing 03/03/23 [History Last Taken Unknown] baclofen 10 mg tablet 10 mg PO DAILY Muscle Spasms 03/03/23 [History Last Taken Unknown] buspirone 5 mg tablet 5 mg PO BID PRN anxiety 03/03/23 [History Last Taken Unknown] hydralazine 25 mg tablet 25 mg PO TID BP 03/03/23 [History Last Taken Unknown] insulin glargine 100 unit/mL subcutaneous solution 19 unit subcut DAILY Diabetes 03/03/23 [History Last Taken 03/03/23] insulin lispro 100 unit/mL subcutaneous pen (Humalog KwikPen (U-100) Insulin) 10 unit subcut TID Diabetes 03/03/23 [History Last Taken Unknown] melatonin 3 mg capsule 3 mg PO QHS Sleep 03/03/23 [History Last Taken Unknown] paroxetine HCl 20 mg tablet (Paxil) 20 mg PO DAILY Mood 03/03/23 [History Last Taken Unknown] pramipexole 0.125 mg tablet 0.25 mg PO QHS Overactive Bladder 03/03/23 [History Last Taken Unknown] rosuvastatin 10 mg tablet 10 mg PO DAILY Cholesterol 03/03/23 [History Last Taken Unknown] Allergy/AdvReac Type Severity Reaction Status Date / Time aspirin [From Percodan] Allergy Other Verified 01/26/21 08:43 oxycodone [From Percodan] Allergy Other Verified 01/26/21 08:43 vancomycin Allergy Rash Verified 01/26/21 08:43 Family History Other Cancer Heart disease Surgical History History of appendectomy History of cholecystectomy History of lung biopsy Social History household members: none Smoking Status: Never smoker alcohol intake: current details: 1 mixed drink every 2 weeks. substance use type: does not use ROS Constitutional Constitutional: Denies difficulty sleeping, excessive sweating or snoring Eyes Eyes: Denies discongugate gaze or periorbital itching ENT HEENT: Denies dizziness, hoarseness or neck mass Cardiovascular Cardiovascular: Denies arrhythmia on telemetry, cyanosis or erythema on extremities Respiratory/Chest Respiratory/Chest: Denies chest tightness, excessive phlegm production or pain on inspiration Physical Exam Narrative Vascular: DP PT pulses palpable 2 out of 4. +1 pitting edema noted to bilateral lower extremity. Bilateral lower extremity erythema noted likely secondary to stasis dermatitis. Neurologic: Light touch protective sensation diminished bilateral feet. Dermatologic: Scaling to bilateral feet. Mid tibial erythema likely suggestive of stasis dermatitis. Skin otherwise intact. Toenails 1, 2, 3, 4, 5 on the right and left foot are elongated thickened with subungual debris. Painful to palpation. Musculoskeletal: No sign DVT. No gross deformity. Muscular strength full. Athetosis noted. Const alert and oriented x3 Lab / Micro Data 03/06/23 11:54 03/06/23 11:54 Labs: Laboratory Results - last 24 hr 03/07/23 11:53: POC Glucose 242 H 03/07/23 17:53: POC Glucose 174 H 03/07/23 21:49: POC Glucose 113 H 03/08/23 06:07: POC Glucose 165 H 03/08/23 11:07: POC Glucose 228 H Micro: Microbiology 03/08/23 06:45 Nasal Secretion SARS-CoV-2 Antigen (Rapid) - Final
[2023-03-08 12:44] VITALS: BP 130/60; PULSE 74
--- NOTE | 2023-03-08 15:40 | NURSING ---
son visiting, updated on new +covid patients
[2023-03-08 16:00] VITALS: BP 125/62; PULSE 71; RESP 16; TEMP 36.4; O2SAT 98
[2023-03-08 16:20] LABS: Bedside Glucose 180 mg/dL (74-106)
[2023-03-08] MEDS: Atorvastatin Calcium 20 MG Tablet PO (21:37)
[2023-03-08 21:38] VITALS: BP 169/53; PULSE 72
[2023-03-08] MEDS: MELATONIN 3 MG TABLET PO (21:38)
[2023-03-08] MEDS: Pramipexole Di-HCl 0.25 MG Tablet PO (21:40)
[2023-03-08 22:01] LABS: Bedside Glucose 119 mg/dL (74-106)
[2023-03-09 06:00] VITALS: BP 137/49; PULSE 69
[2023-03-09] MEDS: hydrALAZINE 25 MG Tablet PO ×3 (06:00→21:08)
[2023-03-09] MEDS: Levothyroxine 125 MCG Tablet PO (06:00)
[2023-03-09] MEDS: Enoxaparin 40 MG/0.4 ML Syringe SC (06:00)
[2023-03-09] MEDS: hydrOXYzine PAM 25 MG Capsule PO ×3 (06:00→21:08)
[2023-03-09 06:36] LABS: Bedside Glucose 146 mg/dL (74-106)
[2023-03-09] MEDS: Glucerna Shake 120 ML LIQUID PO ×3 (09:15→17:48)
[2023-03-09] MEDS: Ammonium Lactate 225 gm Bottle 1 APPLIC TOPICAL ×2 (09:16→21:10)
[2023-03-09] MEDS: Baclofen 10 MG Tablet PO (09:16)
[2023-03-09] MEDS: Tolterodine Tartrate 2 MG CAP.SA PO (09:16)
[2023-03-09] MEDS: Paroxetine 20 MG Tablet PO (09:17)
[2023-03-09] MEDS: amLODIPine 10 MG Tablet PO (09:17)
[2023-03-09] MEDS: Insulin Glargine-YFGN 100 UNIT/ML Pen 19 UNIT SC (09:17)
[2023-03-09] MEDS: Senna/Docusate Sodium 1 Tablet PO ×2 (09:17→21:08)
[2023-03-09] MEDS: Petrolatum 33% Tube 1 APPLIC TOPICAL ×2 (09:18→21:10)
[2023-03-09] MEDS: Insulin Lispro 100 UNIT/ML INSULN.PEN 10 UNIT SC ×3 (09:22→17:43)
[2023-03-09] MEDS: Menthol/Lanolin/Calamine/Znox 113 GM Tube 1 APPLIC TOPICAL ×2 (09:25→21:11)
[2023-03-09 13:11] VITALS: BP 153/53; PULSE 76
[2023-03-09 14:54] VITALS: BP 162/41; PULSE 81; RESP 18; TEMP 37.1; O2SAT 95
[2023-03-09] MEDS: Acetaminophen 500 MG Tablet 1000 MG PO (15:48)
[2023-03-09] MEDS: Triamcinolone 0.1% Ointment 15 gm tube 1 APPLIC TOPICAL ×2 (15:49→21:10)
--- NOTE | 2023-03-09 16:23 | CASEMGMT ---
Social Work BIMS () and PHQ-9 (01/12) completed for MDS assessment. SW inquired about pt's opinions of POC mtg yesterday and son's requests for pt to change housing and admit to an AL. Pt expressed she agrees she needs out of her current home, but does not agree to AL. Pt would like to move into a one-story apartment or condo. SW acknowledged pt's progress and not needing a lot of physical assistance. SW offered resources for housing, but pt has laptop in room and is researching/applying for apartments. SW offered to assist with transition to apartment from TCU or AL. Pt appreciative. rayne staton, COUNTER INTELLIGENCE AGENT ALCOHOL AND DRUG COUNSELOR
[2023-03-09 17:09] LABS: Bedside Glucose 143 mg/dL (74-106)
[2023-03-09 21:08] VITALS: PULSE 74
[2023-03-09] MEDS: Pramipexole Di-HCl 0.25 MG Tablet PO (21:08)
[2023-03-09] MEDS: Atorvastatin Calcium 20 MG Tablet PO (21:08)
[2023-03-09] MEDS: MELATONIN 3 MG TABLET PO (21:08)
[2023-03-09 21:35] LABS: Bedside Glucose 249 mg/dL (74-106)
[2023-03-10 05:27] VITALS: BP 138/53; PULSE 67
[2023-03-10] MEDS: Levothyroxine 125 MCG Tablet PO (05:27)
[2023-03-10] MEDS: hydrALAZINE 25 MG Tablet PO ×2 (05:27→20:49)
[2023-03-10] MEDS: Enoxaparin 40 MG/0.4 ML Syringe SC (05:27)
[2023-03-10 08:15] LABS: Bedside Glucose 160 mg/dL (74-106)
[2023-03-10] MEDS: Insulin Lispro 100 UNIT/ML INSULN.PEN 10 UNIT SC ×3 (09:32→16:38)
[2023-03-10] MEDS: Baclofen 10 MG Tablet PO (09:34)
[2023-03-10] MEDS: Paroxetine 20 MG Tablet PO (09:34)
[2023-03-10] MEDS: Glucerna Shake 120 ML LIQUID PO ×3 (09:34→16:40)
[2023-03-10] MEDS: Ergocalciferol 1.25 MG (50, 000 UNIT) Capsule PO (09:34)
[2023-03-10] MEDS: amLODIPine 10 MG Tablet PO (09:35)
[2023-03-10] MEDS: Ammonium Lactate 225 gm Bottle 1 APPLIC TOPICAL ×2 (09:35→20:52)
[2023-03-10] MEDS: Senna/Docusate Sodium 1 Tablet PO (09:35)
[2023-03-10] MEDS: Tolterodine Tartrate 2 MG CAP.SA PO (09:35)
[2023-03-10] MEDS: Triamcinolone 0.1% Ointment 15 gm tube 1 APPLIC TOPICAL ×2 (09:36→20:52)
[2023-03-10] MEDS: Petrolatum 33% Tube 1 APPLIC TOPICAL ×2 (09:36→20:52)
[2023-03-10] MEDS: Menthol/Lanolin/Calamine/Znox 113 GM Tube 1 APPLIC TOPICAL ×2 (09:36→20:50)
[2023-03-10] MEDS: busPIRone 5 MG Tablet PO ×2 (09:37→20:49)
[2023-03-10] MEDS: Insulin Glargine-YFGN 100 UNIT/ML Pen 19 UNIT SC (09:38)
--- NOTE | 2023-03-10 09:38 | NURSING ---
[employer] Administrator Note; MDS Complete
[2023-03-10] MEDS: hydrOXYzine PAM 25 MG Capsule PO ×2 (09:42→20:49)
--- NOTE | 2023-03-10 09:50 | NURSING ---
emergency charting utilized d/t staffing 03/10 0798
[2023-03-10 11:25] LABS: Bedside Glucose 245 mg/dL (74-106)
[2023-03-10 13:52] VITALS: BP 120/39
[2023-03-10 14:51] VITALS: BP 126/39; PULSE 78; RESP 18; TEMP 36.2; O2SAT 97
[2023-03-10 16:22] LABS: Bedside Glucose 121 mg/dL (74-106)
[2023-03-10] MEDS: MELATONIN 3 MG TABLET PO (20:48)
[2023-03-10] MEDS: Atorvastatin Calcium 20 MG Tablet PO (20:48)
[2023-03-10 20:49] VITALS: BP 130/53; PULSE 81
[2023-03-10] MEDS: Loratadine 10 MG Tablet PO (20:49)
[2023-03-10] MEDS: Pramipexole Di-HCl 0.25 MG Tablet PO (20:49)
[2023-03-10 21:19] LABS: Bedside Glucose 162 mg/dL (74-106)
[2023-03-11] MEDS: Enoxaparin 40 MG/0.4 ML Syringe SC (05:23)
[2023-03-11] MEDS: Levothyroxine 125 MCG Tablet PO (05:23)
[2023-03-11 05:24] VITALS: BP 116/54; PULSE 73
[2023-03-11] MEDS: hydrALAZINE 25 MG Tablet PO ×3 (05:24→21:01)
[2023-03-11 06:56] LABS: Bedside Glucose 148 mg/dL (74-106)
[2023-03-11 07:18] LABS: Absolute Lymphocyte Count 2.22 X10^3/uL (0.83-4.51); Absolute Neutrophil Count 5.6 X10^3/uL (2.0-7.7); Basophil# 0.07 X10^3/uL; Basophil% 0.8 % (0-1); Eosinophil# 0.43 X10^3/uL; Eosinophils% 4.7 % (0-5); Hematocrit 34.3 % (37-47); Hemoglobin 10.6 g/dL (12.0-15.0); Lymphocyte # 2.22 X10^3/ul (0.83-4.51); Lymphocyte % 24.1 % (19-41); Mean Corp Hgb Conc 30.9 g/dL (32-36); Mean Corpuscular Hgb 28.2 pg (27.0-32.0); Mean Corpuscular Volume 91.2 fL (81-99); Mean Platelet Vol. 9.8 fl (6.2-12.0); Monocyte# 0.92 X10^3/uL; NRBC Flagged by Analyzer 0 % (0-5); Neutrophil # 5.55 X10^3/uL (2.7-7.7); Neutrophil % 60.2 % (47-70); Platelet Count 336 K/mm3 (150-450); RBC Distribution Width CV 13.1 % (11.6-14.6); RBC Distribution Width SD 43.9 fl (35.1-43.9); Red Blood Count 3.76 M/mm3 (4.2-5.4); White Blood Count 9.2 K/mm3 (4.4-11.0)
[2023-03-11 07:58] LABS: Anion Gap 4 (5-15); BUN 43 mg/dL (7-18); BUN/Creat Ratio 36.8 RATIO (10-20); Calcium,Total 8.9 mg/dL (8.5-10.1); Chloride 107 mmol/L (98-107); Creatinine, Serum 1.17 mg/dL (0.55-1.02); EST Glomerular Filtration Rate 47 mL/min (>60); Est Glom Filt Rate - Afr Amer 57 mL/min (>60); Estimated Creatinine Clearance 37.92 ml/min; Glucose 149 mg/dL (74-106); Potassium 4.3 mmol/L (3.5-5.1); Sodium Level 137 mmol/L (136-145)
[2023-03-11] MEDS: Glucerna Shake 120 ML LIQUID PO ×3 (08:17→17:11)
[2023-03-11] MEDS: Insulin Lispro 100 UNIT/ML INSULN.PEN 10 UNIT SC ×3 (08:17→17:11)
[2023-03-11] MEDS: Baclofen 10 MG Tablet PO (08:19)
[2023-03-11] MEDS: amLODIPine 10 MG Tablet PO ×2 (08:20)
[2023-03-11] MEDS: Ammonium Lactate 225 gm Bottle 1 APPLIC TOPICAL ×2 (08:20→21:04)
[2023-03-11] MEDS: Tolterodine Tartrate 2 MG CAP.SA PO (08:20)
[2023-03-11] MEDS: Petrolatum 33% Tube 1 APPLIC TOPICAL (08:22)
[2023-03-11] MEDS: Senna/Docusate Sodium 1 Tablet PO ×2 (08:23→21:01)
[2023-03-11] MEDS: Paroxetine 20 MG Tablet PO (08:23)
[2023-03-11] MEDS: Triamcinolone 0.1% Ointment 15 gm tube 1 APPLIC TOPICAL ×2 (08:24→21:05)
[2023-03-11] MEDS: Menthol/Lanolin/Calamine/Znox 113 GM Tube 1 APPLIC TOPICAL ×2 (08:25→21:02)
[2023-03-11] MEDS: Loratadine 10 MG Tablet PO ×2 (08:25→21:01)
[2023-03-11] MEDS: Insulin Glargine-YFGN 100 UNIT/ML Pen 19 UNIT SC (10:28)
[2023-03-11] MEDS: Tuberculin,Purif.prot.deriv. 50 TU/ML Vial 0.1 ML ID (11:28)
[2023-03-11 11:31] LABS: Bedside Glucose 195 mg/dL (74-106)
[2023-03-11 11:32] VITALS: BP 147/61; PULSE 78; RESP 16; TEMP 36.9; O2SAT 95
[2023-03-11 15:21] VITALS: BP 147/60; PULSE 78
[2023-03-11 16:21] LABS: Bedside Glucose 153 mg/dL (74-106)
[2023-03-11] MEDS: hydrOXYzine PAM 25 MG Capsule PO (21:00)
[2023-03-11 21:01] VITALS: BP 159/68; PULSE 80
[2023-03-11] MEDS: MELATONIN 3 MG TABLET PO (21:03)
[2023-03-11] MEDS: Atorvastatin Calcium 20 MG Tablet PO (21:03)
[2023-03-11] MEDS: Pramipexole Di-HCl 0.25 MG Tablet PO (21:04)
[2023-03-11 21:48] LABS: Bedside Glucose 184 mg/dL (74-106)
[2023-03-12 05:58] VITALS: BP 163/71; PULSE 73
[2023-03-12] MEDS: Levothyroxine 125 MCG Tablet PO (05:58)
[2023-03-12] MEDS: hydrALAZINE 25 MG Tablet PO ×3 (05:58→21:22)
[2023-03-12] MEDS: hydrOXYzine PAM 25 MG Capsule PO ×3 (06:02→21:26)
[2023-03-12 06:11] LABS: Hematocrit 35.7 % (37-47); Hemoglobin 10.8 g/dL (12.0-15.0)
[2023-03-12 06:50] LABS: Bedside Glucose 145 mg/dL (74-106)
[2023-03-12] MEDS: Insulin Lispro 100 UNIT/ML INSULN.PEN 10 UNIT SC ×3 (08:09→17:35)
[2023-03-12] MEDS: Baclofen 10 MG Tablet PO (08:11)
[2023-03-12] MEDS: Menthol/Lanolin/Calamine/Znox 113 GM Tube 1 APPLIC TOPICAL ×2 (09:33→21:23)
[2023-03-12] MEDS: Paroxetine 20 MG Tablet PO (09:33)
[2023-03-12] MEDS: Loratadine 10 MG Tablet PO ×2 (09:33→21:19)
[2023-03-12] MEDS: Senna/Docusate Sodium 1 Tablet PO ×2 (09:33→21:19)
[2023-03-12] MEDS: Glucerna Shake 120 ML LIQUID PO ×3 (09:33→16:35)
[2023-03-12] MEDS: Tolterodine Tartrate 2 MG CAP.SA PO (09:34)
[2023-03-12] MEDS: Ammonium Lactate 225 gm Bottle 1 APPLIC TOPICAL ×2 (09:34→21:22)
[2023-03-12] MEDS: Petrolatum 33% Tube 1 APPLIC TOPICAL ×2 (09:35→21:22)
[2023-03-12] MEDS: Insulin Glargine-YFGN 100 UNIT/ML Pen 19 UNIT SC (09:36)
[2023-03-12] MEDS: Triamcinolone 0.1% Ointment 15 gm tube 1 APPLIC TOPICAL ×2 (09:39→21:21)
[2023-03-12 11:25] LABS: Bedside Glucose 284 mg/dL (74-106)
[2023-03-12 13:59] VITALS: PULSE 80
[2023-03-12 15:32] VITALS: BP 155/77; PULSE 80; RESP 16; TEMP 36.7; O2SAT 94
[2023-03-12 17:25] LABS: Bedside Glucose 111 mg/dL (74-106)
[2023-03-12] MEDS: MELATONIN 3 MG TABLET PO (21:18)
[2023-03-12] MEDS: Atorvastatin Calcium 20 MG Tablet PO (21:18)
[2023-03-12 21:22] VITALS: BP 176/70; PULSE 73
[2023-03-12] MEDS: Pramipexole Di-HCl 0.25 MG Tablet PO (21:24)
[2023-03-12 21:46] LABS: Bedside Glucose 113 mg/dL (74-106)
[2023-03-13] VITALS (7 sets, daily range): BP systolic 135–167; BP diastolic 52–66; PULSE 72–80; RESP 16; TEMP 36.9; O2SAT 94
[2023-03-13] MEDS: Levothyroxine 125 MCG Tablet PO (06:05)
[2023-03-13] MEDS: hydrALAZINE 25 MG Tablet PO ×3 (06:05→22:07)
[2023-03-13 06:26] LABS: Bedside Glucose 126 mg/dL (74-106)
[2023-03-13] MEDS: Insulin Lispro 100 UNIT/ML INSULN.PEN 10 UNIT SC ×3 (08:08→17:36)
[2023-03-13] MEDS: Baclofen 10 MG Tablet PO (08:11)
[2023-03-13] MEDS: Menthol/Lanolin/Calamine/Znox 113 GM Tube 1 APPLIC TOPICAL ×2 (08:11→22:09)
[2023-03-13] MEDS: Loratadine 10 MG Tablet PO ×2 (08:12→22:09)
[2023-03-13] MEDS: Tolterodine Tartrate 2 MG CAP.SA PO (08:12)
[2023-03-13] MEDS: Paroxetine 20 MG Tablet PO (08:13)
[2023-03-13] MEDS: Senna/Docusate Sodium 1 Tablet PO (08:13)
[2023-03-13] MEDS: Triamcinolone 0.1% Ointment 15 gm tube 1 APPLIC TOPICAL ×2 (08:15→22:16)
[2023-03-13] MEDS: Glucerna Shake 120 ML LIQUID PO ×3 (08:20→17:19)
[2023-03-13] MEDS: amLODIPine 10 MG Tablet PO (08:25)
[2023-03-13] MEDS: Ammonium Lactate 225 gm Bottle 1 APPLIC TOPICAL ×2 (08:30→22:10)
[2023-03-13] MEDS: Petrolatum 33% Tube 1 APPLIC TOPICAL ×2 (08:32→22:09)
--- NOTE | 2023-03-13 09:40 | CASEMGMT ---
Social Work Completed advanced directives with pt. Original and copy provided to pt. Copies placed on chart. Laura Avendano, FINANCIAL AID ADMINISTRATOR ASSOCIATE DIRECTOR REGULATORY AFFAIRS
[2023-03-13] MEDS: Insulin Glargine-YFGN 100 UNIT/ML Pen 19 UNIT SC (11:04)
--- NOTE | 2023-03-13 11:07 | NURSING ---
PER THERAPY PT IS ALLOWED TO BE AB EVENS IN ROOM AFTER ADLS
[2023-03-13 12:08] LABS: Bedside Glucose 262 mg/dL (74-106)
[2023-03-13] MEDS: hydrOXYzine PAM 25 MG Capsule PO ×2 (14:28→22:14)
[2023-03-13 17:06] LABS: Bedside Glucose 149 mg/dL (74-106)
[2023-03-13] MEDS: Acetaminophen 500 MG Tablet 1000 MG PO (18:39)
[2023-03-13 21:49] LABS: Bedside Glucose 160 mg/dL (74-106)
[2023-03-13] MEDS: Pramipexole Di-HCl 0.25 MG Tablet PO (22:08)
[2023-03-13] MEDS: busPIRone 5 MG Tablet PO (22:08)
[2023-03-13] MEDS: MELATONIN 3 MG TABLET PO (22:11)
[2023-03-13] MEDS: Atorvastatin Calcium 20 MG Tablet PO (22:11)
[2023-03-14] VITALS (7 sets, daily range): BP systolic 133–177; BP diastolic 52–72; PULSE 66–82; RESP 16; TEMP 36.2; O2SAT 95; BMI 39.1
[2023-03-14] MEDS: hydrOXYzine PAM 25 MG Capsule PO ×3 (06:12→21:29)
[2023-03-14] MEDS: Levothyroxine 125 MCG Tablet PO (06:12)
[2023-03-14] MEDS: hydrALAZINE 25 MG Tablet PO ×3 (06:17→21:36)
[2023-03-14] MEDS: Acetaminophen 500 MG Tablet 1000 MG PO (06:19)
[2023-03-14 06:53] LABS: Bedside Glucose 164 mg/dL (74-106)
[2023-03-14] MEDS: Insulin Lispro 100 UNIT/ML INSULN.PEN 10 UNIT SC ×3 (08:22→17:38)
[2023-03-14] MEDS: Baclofen 10 MG Tablet PO (08:24)
[2023-03-14] MEDS: Loratadine 10 MG Tablet PO ×2 (08:24→21:33)
[2023-03-14] MEDS: Tolterodine Tartrate 2 MG CAP.SA PO (08:24)
[2023-03-14] MEDS: Paroxetine 20 MG Tablet PO (08:25)
[2023-03-14] MEDS: Senna/Docusate Sodium 1 Tablet PO ×2 (08:25→21:33)
[2023-03-14] MEDS: Glucerna Shake 120 ML LIQUID PO ×3 (08:27→17:42)
[2023-03-14] MEDS: Menthol/Lanolin/Calamine/Znox 113 GM Tube 1 APPLIC TOPICAL ×2 (08:30→21:32)
[2023-03-14] MEDS: Ammonium Lactate 225 gm Bottle 1 APPLIC TOPICAL ×2 (08:33→21:31)
[2023-03-14] MEDS: amLODIPine 10 MG Tablet PO (08:33)
[2023-03-14] MEDS: Petrolatum 33% Tube 1 APPLIC TOPICAL ×2 (08:34→21:30)
[2023-03-14] MEDS: Insulin Glargine-YFGN 100 UNIT/ML Pen 19 UNIT SC (10:30)
[2023-03-14 11:20] LABS: Bedside Glucose 147 mg/dL (74-106)
--- NOTE | 2023-03-14 14:33 | CASEMGMT ---
Social Work IDT met in UR and discussed patient's progress. Pt is doing well and live independently, but recommending occasional assistance. Concerned about possible decline after home, out of structured environment and agreeable to son's request for AL. Son phoned this worker with update. SAMUEL updated from UR. Son appreciative and stated currently, pt does not have a working hot water heater. Son states he can fix it but really doesn't want her returning home. SW appreciative of information and will peak with pt on DC options. SW met with pt to discuss DC plans and progress. Pt expressed her home is okay, not bad, but okay. Pt would prefer to not return to her home, but rather an apartment or condo. SW inquired about progress on finding alternative housing. Pt stated she has researched a lot and applied to 3 places last night. SW noted it may not be securable if insurance issues DC 03/18 and recommended finding an alternative option. Pt expressed understanding. Pt stated her son really wants her to go to [facility]. SW educated to apartment and AL living, and offered to assist with referral/discharge. Pt agreed to referral and even if it just temporary housing in apartment/condo becomes available she'd prefer to move it. SW agreed. SAMUEL phoned [facility], spoke with Tarsha and updated on pt's situation, EDC 03/18. Tarsha unsure if a move can happen by then, but offered to review paperwork and make attempt. SAMUEL sent referral to [facility] via [facility] to review. [facility] RN will be reviewing it and possibly scheduling an assessment for 03/15 to determine acceptance, and if that can happen on 03/18. SAMUEL phoned son to update. Son appreciative and will work toward fixing water heater in case pt needs to DC home first prior to TVT. SW will continue to follow. Laura Avendano, PORSCHE MCKINNONW
[2023-03-14 16:25] LABS: Bedside Glucose 151 mg/dL (74-106)
[2023-03-14] MEDS: MELATONIN 3 MG TABLET PO (21:33)
[2023-03-14] MEDS: Pramipexole Di-HCl 0.25 MG Tablet PO (21:33)
[2023-03-14] MEDS: Atorvastatin Calcium 20 MG Tablet PO (21:33)
[2023-03-14 22:04] LABS: Bedside Glucose 126 mg/dL (74-106)
[2023-03-15] MEDS: Acetaminophen 500 MG Tablet 1000 MG PO (05:24)
[2023-03-15 05:25] VITALS: BP 153/72; PULSE 68
[2023-03-15] MEDS: Levothyroxine 125 MCG Tablet PO (05:25)
[2023-03-15] MEDS: hydrALAZINE 25 MG Tablet PO ×2 (05:25→13:32)
--- NOTE | 2023-03-15 05:41 | NURSING ---
Presents in recliner with BLE, prefers to sleep in chair, declines bed this HS. Redness observed to BLE, patient has dx: lymphedema but reports increased edema to BLE, non-pitting. Patient on sodium restricted diet, frequently requesting diet sodas, patient education on sodium restricted diet and educated on additional sodium in each can of diet soda and encouraged to limit soda intake to ensure sodium restricted diet maintained, patient verbalized understanding, requested ice water. Fresh ice water provided. Patient also reports PRN Vistaril ineffective. Reports itch to legs. Note left for Dr. Jaffe regarding redness to BLE, increased edema to BLE per patient report and complaint of Vistaril ineffective for itch.
[2023-03-15 06:13] LABS: Bedside Glucose 131 mg/dL (74-106)
[2023-03-15] MEDS: Insulin Lispro 100 UNIT/ML INSULN.PEN 10 UNIT SC ×3 (08:07→17:10)
[2023-03-15] MEDS: Insulin Glargine-YFGN 100 UNIT/ML Pen 19 UNIT SC (08:08)
[2023-03-15] MEDS: Glucerna Shake 120 ML LIQUID PO ×2 (08:10→13:33)
[2023-03-15] MEDS: Tolterodine Tartrate 2 MG CAP.SA PO (08:10)
[2023-03-15] MEDS: Menthol/Lanolin/Calamine/Znox 113 GM Tube 1 APPLIC TOPICAL (08:10)
[2023-03-15] MEDS: Baclofen 10 MG Tablet PO (08:10)
[2023-03-15] MEDS: Paroxetine 20 MG Tablet PO (08:11)
[2023-03-15] MEDS: amLODIPine 10 MG Tablet PO (08:11)
[2023-03-15] MEDS: Loratadine 10 MG Tablet PO (08:11)
[2023-03-15] MEDS: Petrolatum 33% Tube 1 APPLIC TOPICAL (08:12)
[2023-03-15] MEDS: Senna/Docusate Sodium 1 Tablet PO (08:12)
[2023-03-15] MEDS: Triamcinolone 0.1% Ointment 15 gm tube 1 APPLIC TOPICAL (08:13)
[2023-03-15] MEDS: Ammonium Lactate 225 gm Bottle 1 APPLIC TOPICAL (08:14)
[2023-03-15] MEDS: Furosemide 40 MG Tablet PO (08:17)
--- NOTE | 2023-03-15 09:38 | MDS.RN ---
Information for the mds was obtained from review of the clinical record, interview of resident, staff, and direct observation of resident's care.
[2023-03-15 11:18] LABS: Bedside Glucose 206 mg/dL (74-106)
[2023-03-15] MEDS: Cephalexin 500 MG Capsule PO ×2 (11:18→17:10)
[2023-03-15 13:32] VITALS: PULSE 72
[2023-03-15 13:49] VITALS: BP 152/60; PULSE 72; RESP 16; TEMP 36.9; O2SAT 96
[2023-03-15] MEDS: hydrOXYzine PAM 25 MG Capsule 50 MG PO (14:51)
--- NOTE | 2023-03-15 14:57 | CASEMGMT ---
Addendum entered by Laura Avendano 03/16/23 13:30: PASRR completed and DC paperwork sent to [facility]. Addendum entered by Laura Avendano 03/16/23 12:23: [facility] can accept pt. SW spoke with pt and phoned son to update. Son to transport. Original Note: Social Work SW phoned [facility] twice to receive updates. Insurance issued LCD 03/17, DC 03/18. SW phoned son to update on DC and [facility] unable to secure apartment for pt to move in by 03/18, but also they have not given official acceptance yet. Son stated he was going to work on pt's house this week but there was a family accident and he cannot. SW offered to make referral to [facility] AL, the other in town [facility] AL. Son agreeable. Educated to [facility] number received and could admit to SNF before AL is available. Son agreeable to plan. SW to speak with pt and make referral to [facility], if agreeable. SW updated pt on DC, TVT and CC information. Pt agreeable to [facility] referral/placement until [facility] is available. Referral made via [employer]. Plan: DC 03/18, unknown destination. Laura Avendano, PORSCHE ARTIFICIAL LIMB FITTER
[2023-03-15 16:57] LABS: Bedside Glucose 107 mg/dL (74-106)
--- NOTE | 2023-03-15 19:14 | DS.PCM_ITS ---
Providers Date of Admission: 03/03/23 Primary Care Physician: Dr. Shiv Weiner MD Consultations 03/06/23 16:41 Consult: Podiatry Routine Consulting Provider: Omar Huitron Reason for Consult: General foot care. EMERGENT Consult: No MD Notified: Yes Date Notified: 03/06/23 Time Notified: 15:00 Method of Notification: Verbal Reason For Visit: UTI/PRESSURE WOUND Diagnosis Discharge Diagnosis (1) Type 2 diabetes mellitus with diabetic polyneuropathy: Status: Acute Code(s): E11.42 - Type 2 diabetes mellitus with diabetic polyneuropathy (2) Acquired lymphedema: Status: Acute Code(s): I89.0 - Lymphedema, not elsewhere classified (3) Tinea unguium: Status: Acute Code(s): B35.1 - Tinea unguium (4) Pain in right toe(s): Status: Acute Code(s): M79.674 - Pain in right toe(s) (5) Pain in left toe(s): Status: Acute Code(s): M79.675 - Pain in left toe(s) Plan 77 year old female with below past medical history hospitalized for weakness, urinary tract infection, low back pain, admitted to TCU with debility, here for rehabilitation, strengthening, prior to discharge home alone. * Debility - PT/OT. * Pain - Tylenol 1000mg Q6h prn pain (1-10). * Bowel - senna/colace 1 tablet bid, Magnesium citrate 300ml daily prn. * Adult immunization - Administer pneumonia vaccine, covid19 vaccine, flu vaccine as appropriate. * DVT prophylaxis - Lovenox 40mg sc daily. * Shortness of breath - Albuterol 2 puffs q6h prn. * Hypertension - Amlodipine 10mg daily, Hydralazine 25mg tid. * Hyperlipidemia - Atorvastatin 20mg qhs. * Muscle spasm - Baclofen 10mg daily. * Anxiety - Buspar 5mg bid prn, stable chronic chcf use, GDR not recommended. * Vitamin D deficiency - D2 50,000 units per week. * Nutrition - Glucerna shake 120ml po tidcm. * Diabetes Mellitus II - Glargine 19 units daily, Lispro 10 units tidac. * Hypothyroidism - Levothyroxine 125mcg daily. * Insomnia - Melatonin 3mg qhs. * Skin irritation - Calmoseptine topical bid. * Tinea Corporis - Nystatin powder topical bid, Mycolog topical bid. 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 * Restless Leg syndrome - Mirapex 0.25mg qhs. Medications at Discharge Home Medications ergocalciferol (vitamin D2) 1,250 mcg (50,000 unit) capsule (Vitamin D2) 1,250 mcg PO QWEEK Supplement 12/23/20 levothyroxine 112 mcg tablet 125 mcg PO DAILY Thyroid 12/23/20 amlodipine 10 mg tablet 10 mg PO DAILY BP #90 tabs 07/15/21 baclofen 10 mg tablet 10 mg PO DAILY Muscle Spasms 03/03/23 buspirone 5 mg tablet 5 mg PO BID PRN anxiety 03/03/23 hydralazine 25 mg tablet 25 mg PO TID BP 03/03/23 insulin glargine 100 unit/mL subcutaneous solution 19 unit subcut DAILY Diabetes 03/03/23 insulin lispro 100 unit/mL subcutaneous pen (Humalog KwikPen (U-100) Insulin) 10 unit subcut TID Diabetes 03/03/23 melatonin 3 mg capsule 3 mg PO QHS Sleep 03/03/23 paroxetine HCl 20 mg tablet (Paxil) 20 mg PO DAILY Mood 03/03/23 pramipexole 0.125 mg tablet 0.25 mg PO QHS Overactive Bladder 03/03/23 Petrolatum 33% [Eucerin Eqivalent] 1 applic topical BID ##0 03/15/23 acetaminophen 500 mg tablet 1,000 mg (2 x 500 mg) PO Q6H PRN Pain 1-10 #0 tabs 03/15/23 ammonium lactate 12 % lotion 1 applic topical BID #0 grams 03/15/23 atorvastatin 20 mg tablet 20 mg PO QHS #0 tabs 03/15/23 cephalexin 500 mg capsule 500 mg PO Q6 4 days #0 caps 03/15/23 furosemide 40 mg tablet 40 mg PO DAILY 4 days #0 tabs 03/15/23 hydroxyzine pamoate 25 mg capsule 50 mg (2 x 25 mg) PO TID PRN PRN ITCHING/ANXIETY #0 caps 03/15/23 menthol 0.44 %-zinc oxide 20.6 % topical ointment (Calmoseptine) 1 applic topical BID #0 grams 03/15/23 nystatin 100,000 unit/gram topical powder (Nyamyc) 1 applic topical BID #0 grams 03/15/23 sennosides 8.6 mg-docusate sodium 50 mg tablet (Stool Softener-Stimulant Laxative) 1 tab PO BID #0 tabs 03/15/23 tolterodine 2 mg capsule,extended release 24 hr 2 mg PO DAILY #0 caps 03/15/23 triamcinolone acetonide 0.1 % topical ointment 1 applic topical BID #0 grams 03/15/23 Hospital Course Operations None Procedures None Summary of Care Provided Minutes Spent on Discharge: 35 Hospital Course: 77 year old female with below past medical history hospitalized for weakness, urinary tract infection, low back pain, admitted to TCU with debility, here for rehabilitation, strengthening, prior to discharge home alone. 03/15/2023 Furosemide 40mg daily x 7 days for lymphedema, Cephalexin 500mg q6 x 7 days for cellulitis bilateral lower extremities. Discharge to [facility] 03/18/2023, intermediate, Part B therapies. Physical Exam Const alert General Appearance: cooperative HEENT normocephalic Eyes PERRL and EOMs intact bilaterally Neck supple, no JVD and no carotid bruits Resp normal respiratory effort, normal air movement and clear to auscultation bilaterally Cardio regular rate and regular rhythm GI normal to inspection, nondistended, normoactive bowel sounds, non-tender and non-distended Extremity normal capillary refill Extremity Narrative: 2+ pitting edema bilateral lower extremities. Redness, tenderness bilateral distal lower extremities. General Extremity: Negative for edema Skin no rashes or lesions noted General Skin Exam: no breakdown Psych affect normal Appearance: appropriate Weight / BMI Weight Weight: 113.217 kg Body Mass Index (BMI) 39.1 ABG / Lab / Microbiology Data 03/12/23 05:50 03/11/23 06:50 Laboratory: Laboratory Results - last 24 hr 03/14/23 21:40: POC Glucose 126 H 03/15/23 05:51: POC Glucose 131 H 03/15/23 11:01: POC Glucose 206 H 03/15/23 16:36: POC Glucose 107 H Microbiology: Microbiology 03/14/23 06:14 Nasal Secretion SARS-CoV-2 Antigen (Rapid) - Final 03/11/23 05:30 Nasal Secretion SARS-CoV-2 Antigen (Rapid) - Final 03/08/23 06:45 Nasal Secretion SARS-CoV-2 Antigen (Rapid) - Final 03/05/23 05:40 Nasal Secretion SARS-CoV-2 Antigen (Rapid) - Final 03/03/23 17:19 Nasal Secretion SARS-CoV-2 Antigen (Rapid) - Final D/C Instructions Discharge Diet: No restrictions Discharge Activity: Return to Normal Activity, May Shower and Use Walker Weight Bearing Status: Weight bearing as tolerated Call your doctor if you observe: Fever of 101 or Higher, Inability to urinate, Inability to have a bowel movement, Shortness of breath, Dizziness, Fainting spells, Chest pain and Uncontrolled pain Additional Instructions: Discharge to [facility] 03/18/2023, intermediate, Part B therapies. Meaningful Use Info Meaningful Use Diagnoses (Choose all that apply): None applicable Discharge Plan Admission Admit Date/Time: 03/03/23 13:30 Primary Reason for Your Visit: Debility. Attending Provider: Baljit Jaffe Chi Primary Care Provider: Shiv Weiner Consulting Providers: Omar Huitron Instructions Additional Instructions / Restrictions: Discharge to [facility] 03/18/2023, intermediate, Part B therapies. Discharge Orders/Prescriptions Prescriptions: New acetaminophen 500 mg Tablet 1,000 mg PO Q6H PRN (Reason: Pain 1-10) Qty: 0 0RF furosemide 40 mg Tablet 40 mg PO DAILY 4 Days Qty: 0 0RF atorvastatin 20 mg Tablet 20 mg PO QHS Qty: 0 0RF ammonium lactate 12 % Lotion 1 applic topical BID Qty: 0 0RF Protocol: *Topical Application Instructions APPLICATION INSTRUCTIONS: apply to bilateral lower extremities 1-2 times per day cephalexin 500 mg Capsule 500 mg PO Q6 4 Days Qty: 0 0RF hydroxyzine pamoate 25 mg Capsule 50 mg PO TID PRN PRN (Reason: ITCHING/ANXIETY) Qty: 0 0RF menthol-zinc oxide [Calmoseptine] 0.44-20.6 % Ointment 1 applic topical BID Qty: 0 0RF Protocol: *Topical Application Instructions APPLICATION INSTRUCTIONS: DULCE BUTTOCKS/COCCYX sennosides-docusate sodium [Stool Softener-Stimulant Laxat] 8.6-50 mg Tablet 1 tab PO BID Qty: 0 0RF nystatin [Nyamyc] 100,000 unit/gram Powder 1 applic topical BID Qty: 0 0RF Protocol: *Topical Application Instructions APPLICATION INSTRUCTIONS: UNDER DULCE BREASTS Petrolatum 33% [Eucerin Eqivalent] 1 applic topical BID Qty: 0 0RF tolterodine 2 mg Capsule,Extended Release 24hr 2 mg PO DAILY Qty: 0 0RF triamcinolone acetonide 0.1 % Ointment 1 applic topical BID Qty: 0 0RF Protocol: *Topical Application Instructions APPLICATION INSTRUCTIONS: Abdominal rash. Continued ergocalciferol (vitamin D2) [Vitamin D2] 1,250 mcg (50,000 unit) capsule 1,250 mcg PO QWEEK Patient Comments: take 1 capsule by mouth every week levothyroxine 112 mcg tablet 125 mcg PO DAILY Patient Comments: TAKE 1 TABLET BY MOUTH EVERY DAY baclofen 10 mg tablet 10 mg PO DAILY buspirone 5 mg tablet 5 mg PO BID PRN (Reason: anxiety) hydralazine 25 mg tablet 25 mg PO TID insulin glargine 100 unit/mL solution 19 unit subcut DAILY insulin lispro [Humalog KwikPen Insulin] 100 unit/mL insulin pen 10 unit subcut TID melatonin 3 mg capsule 3 mg PO QHS paroxetine HCl [Paxil] 20 mg tablet 20 mg PO DAILY pramipexole 0.125 mg tablet 0.25 mg PO QHS amlodipine 10 mg tablet 10 mg PO DAILY Qty: 90 3RF Discontinued pramipexole 1 mg tablet 2 mg PO QHS Patient Comments: TAKE 2 TABLETS BY MOUTH EVERY NIGHT meloxicam 15 mg tablet 15 mg PO DAILY Patient Comments: TAKE 1 TABLET BY MOUTH EVERY DAY hydroxyzine HCl 25 mg tablet 25 mg PO TID PRN (Reason: anxiety) Patient Comments: take 1 tablet by mouth every 8 hours if needed lisinopril 40 mg tablet 40 mg PO DAILY zolpidem 12.5 mg tablet,ext release multiphase 12.5 mg PO QHS Patient Comments: take 1 tablet by mouth nightly if needed for sleep acetaminophen [Tylenol] 325 mg tablet 650 mg PO Q6H PRN (Reason: Pain 1-3) albuterol sulfate 90 mcg/actuation HFA aerosol inhaler 2 inh INHALATION Q6H PRN (Reason: shortness of breath or wheezing) Patient Comments: INHALE 2 PUFFS INTO LUNGS 4 TIMES A DAY NEEDD FOR WHEEZING rosuvastatin 10 mg tablet 10 mg PO DAILY torsemide 20 mg tablet 20 mg PO BID Tresiba FlexTouch U-100 100 unit/mL (3 mL) insulin pen 22 unit SUBCUT BID Qty: 0 0RF insulin aspart U-100 [Novolog FlexPen U-100 Insulin] 100 unit/mL (3 mL) insulin pen 18 unit SUBCUT BID Qty: 0 0RF Patient Comments: INJECT 14 UNITS INTO THE SKIN 4 TIMES DAILY spironolactone 25 mg tablet 25 mg PO DAILY Qty: 30 10RF Referrals / Follow Up: Shine Rojas DPM [Med Staff - Active Staff] - Shiv Weiner MD [Primary Care Provider] - Disposition Disposition (needs filled in before D/C Order can be placed): NonSkilled NH/Intermed Care
--- NOTE | 2023-03-15 19:34 | TREXTCAR_ITS ---
Diet Diet Order/Speech Therapy: 03/04/23 14:56 Diet: Consistent Carb - Calorie Controlled Dietary Modifications:: Sodium Restricted Consistent Carbohydrate Is pt able to select menu?: Yes How many daily calories?: 1600 calorie Routine Orders/Code Status Code Status: Full Code Wound(s) right buttocks: Wound Type: Pressure Injury Dressing Change: calmoseptine BLE: Wound Type: Abrasion BUE: Wound Type: Abrasion Therapies Weight Bearing: Weight bearing as tolerated Extremity Affected:: Bilateral Lower Physical Therapy: Eval and Treat Occupational Therapy: Eval and Treat Problem/Diagnosis (1) Type 2 diabetes mellitus with diabetic polyneuropathy: Status: Acute Code(s): E11.42 - Type 2 diabetes mellitus with diabetic polyneuropathy (2) Acquired lymphedema: Status: Acute Code(s): I89.0 - Lymphedema, not elsewhere classified (3) Tinea unguium: Status: Acute Code(s): B35.1 - Tinea unguium (4) Pain in right toe(s): Status: Acute Code(s): M79.674 - Pain in right toe(s) (5) Pain in left toe(s): Status: Acute Code(s): M79.675 - Pain in left toe(s) Plan 77 year old female with below past medical history hospitalized for weakness, urinary tract infection, low back pain, admitted to TCU with debility, here for rehabilitation, strengthening, prior to discharge home alone. * Debility - PT/OT. * Pain - Tylenol 1000mg Q6h prn pain (1-10). * Bowel - senna/colace 1 tablet bid, Magnesium citrate 300ml daily prn. * Adult immunization - Administer pneumonia vaccine, covid19 vaccine, flu vaccine as appropriate. * DVT prophylaxis - Lovenox 40mg sc daily. * Shortness of breath - Albuterol 2 puffs q6h prn. * Hypertension - Amlodipine 10mg daily, Hydralazine 25mg tid. * Hyperlipidemia - Atorvastatin 20mg qhs. * Muscle spasm - Baclofen 10mg daily. 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 * Vitamin D deficiency - D2 50,000 units per week. * Nutrition - Glucerna shake 120ml po tidcm. * Diabetes Mellitus II - Glargine 19 units daily, Lispro 10 units tidac. * Hypothyroidism - Levothyroxine 125mcg daily. * Insomnia - Melatonin 3mg qhs. * Skin irritation - Calmoseptine topical bid. * Tinea Corporis - Nystatin powder topical bid, Mycolog topical bid. 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 * Restless Leg syndrome - Mirapex 0.25mg qhs. Allergies/Procedures Done in Hospital Allergies aspirin [From Percodan] Allergy (Verified 01/26/21 08:43) Other oxycodone [From Percodan] Allergy (Verified 01/26/21 08:43) Other vancomycin Allergy (Verified 01/26/21 08:43) Rash Procedures: None Type of Care/Length of Stay Estimated LOS: Convalescent Care Less Than 30 days Type of Care Needed: Intermediate Rehab Potential: Good Prognosis: Good Additional Orders/Day of Discharge Day of Discharge: 03/18/23 Dietary and Speech Recommendations Dietitian Recommendations/Changes: Will continue 1600 jerry CHO controlled / Sodium restricted Will discontinue 120 ml glucerna shake tid w/ medpass as no longer indicated Will continue to follow and monitor for changes in res nutritional status and need for additional recommendations Discharge Plan Admission Admit Date/Time: 03/03/23 13:30 Primary Reason for Your Visit: Debility. Attending Provider: Baljit Jaffe Chi Primary Care Provider: Shiv Weiner Consulting Providers: Omar Huitron Instructions Additional Instructions / Restrictions: Discharge to [facility] 03/18/2023, intermediate, Part B therapies. Discharge Orders/Prescriptions Prescriptions: New acetaminophen 500 mg Tablet 1,000 mg PO Q6H PRN (Reason: Pain 1-10) Qty: 0 0RF furosemide 40 mg Tablet 40 mg PO DAILY 4 Days Qty: 0 0RF atorvastatin 20 mg Tablet 20 mg PO QHS Qty: 0 0RF ammonium lactate 12 % Lotion 1 applic topical BID Qty: 0 0RF Protocol: *Topical Application Instructions APPLICATION INSTRUCTIONS: apply to bilateral lower extremities 1-2 times per day cephalexin 500 mg Capsule 500 mg PO Q6 4 Days Qty: 0 0RF hydroxyzine pamoate 25 mg Capsule 50 mg PO TID PRN PRN (Reason: ITCHING/ANXIETY) Qty: 0 0RF menthol-zinc oxide [Calmoseptine] 0.44-20.6 % Ointment 1 applic topical BID Qty: 0 0RF Protocol: *Topical Application Instructions APPLICATION INSTRUCTIONS: DLUCE BUTTOCKS/COCCYX sennosides-docusate sodium [Stool Softener-Stimulant Laxat] 8.6-50 mg Tablet 1 tab PO BID Qty: 0 0RF nystatin [Nyamyc] 100,000 unit/gram Powder 1 applic topical BID Qty: 0 0RF Protocol: *Topical Application Instructions APPLICATION INSTRUCTIONS: UNDER DULCE BREASTS Petrolatum 33% [Eucerin Eqivalent] 1 applic topical BID Qty: 0 0RF tolterodine 2 mg Capsule,Extended Release 24hr 2 mg PO DAILY Qty: 0 0RF triamcinolone acetonide 0.1 % Ointment 1 applic topical BID Qty: 0 0RF Protocol: *Topical Application Instructions APPLICATION INSTRUCTIONS: Abdominal rash. Continued ergocalciferol (vitamin D2) [Vitamin D2] 1,250 mcg (50,000 unit) capsule 1,250 mcg PO QWEEK Patient Comments: take 1 capsule by mouth every week levothyroxine 112 mcg tablet 125 mcg PO DAILY Patient Comments: TAKE 1 TABLET BY MOUTH EVERY DAY baclofen 10 mg tablet 10 mg PO DAILY buspirone 5 mg tablet 5 mg PO BID PRN (Reason: anxiety) hydralazine 25 mg tablet 25 mg PO TID insulin glargine 100 unit/mL solution 19 unit subcut DAILY insulin lispro [Humalog KwikPen Insulin] 100 unit/mL insulin pen 10 unit subcut TID melatonin 3 mg capsule 3 mg PO QHS paroxetine HCl [Paxil] 20 mg tablet 20 mg PO DAILY pramipexole 0.125 mg tablet 0.25 mg PO QHS amlodipine 10 mg tablet 10 mg PO DAILY Qty: 90 3RF Discontinued pramipexole 1 mg tablet 2 mg PO QHS Patient Comments: TAKE 2 TABLETS BY MOUTH EVERY NIGHT meloxicam 15 mg tablet 15 mg PO DAILY Patient Comments: TAKE 1 TABLET BY MOUTH EVERY DAY hydroxyzine HCl 25 mg tablet 25 mg PO TID PRN (Reason: anxiety) Patient Comments: take 1 tablet by mouth every 8 hours if needed lisinopril 40 mg tablet 40 mg PO DAILY zolpidem 12.5 mg tablet,ext release multiphase 12.5 mg PO QHS Patient Comments: take 1 tablet by mouth nightly if needed for sleep acetaminophen [Tylenol] 325 mg tablet 650 mg PO Q6H PRN (Reason: Pain 1-3) albuterol sulfate 90 mcg/actuation HFA aerosol inhaler 2 inh INHALATION Q6H PRN (Reason: shortness of breath or wheezing) Patient Comments: INHALE 2 PUFFS INTO LUNGS 4 TIMES A DAY NEEDD FOR WHEEZING rosuvastatin 10 mg tablet 10 mg PO DAILY torsemide 20 mg tablet 20 mg PO BID Tresiba FlexTouch U-100 100 unit/mL (3 mL) insulin pen 22 unit SUBCUT BID Qty: 0 0RF insulin aspart U-100 [Novolog FlexPen U-100 Insulin] 100 unit/mL (3 mL) insulin pen 18 unit SUBCUT BID Qty: 0 0RF Patient Comments: INJECT 14 UNITS INTO THE SKIN 4 TIMES DAILY spironolactone 25 mg tablet 25 mg PO DAILY Qty: 30 10RF Referrals / Follow Up: Shine Rojas DPM [Med Staff - Active Staff] - Shiv Weiner MD [Primary Care Provider] - Disposition Disposition (needs filled in before D/C Order can be placed): NonSkilled NH/Intermed Care
[2023-03-15 21:48] LABS: Bedside Glucose 123 mg/dL (74-106)
[2023-03-15 22:00] VITALS: PULSE 76; RESP 16; O2SAT 96
[2023-03-16 00:02] VITALS: BP 169/72; PULSE 76
[2023-03-16] MEDS: hydrALAZINE 25 MG Tablet PO ×4 (00:02→21:32)
[2023-03-16] MEDS: Menthol/Lanolin/Calamine/Znox 113 GM Tube 1 APPLIC TOPICAL ×3 (00:03→21:34)
[2023-03-16] MEDS: Ammonium Lactate 225 gm Bottle 1 APPLIC TOPICAL ×3 (00:06→21:34)
[2023-03-16] MEDS: Triamcinolone 0.1% Ointment 15 gm tube 1 APPLIC TOPICAL ×3 (00:07→21:35)
[2023-03-16] MEDS: Petrolatum 33% Tube 1 APPLIC TOPICAL ×3 (00:07→21:34)
[2023-03-16] MEDS: hydrOXYzine PAM 25 MG Capsule 50 MG PO ×3 (00:49→21:32)
[2023-03-16 06:22] LABS: Bedside Glucose 123 mg/dL (74-106)
[2023-03-16 06:51] VITALS: BP 188/72; PULSE 68
[2023-03-16] MEDS: Levothyroxine 125 MCG Tablet PO (06:51)
[2023-03-16] MEDS: Cephalexin 500 MG Capsule PO ×4 (06:51→17:42)
[2023-03-16] MEDS: Furosemide 40 MG Tablet PO (08:35)
[2023-03-16] MEDS: Senna/Docusate Sodium 1 Tablet PO ×3 (08:35→21:33)
[2023-03-16] MEDS: Paroxetine 20 MG Tablet PO (08:35)
[2023-03-16] MEDS: Tolterodine Tartrate 2 MG CAP.SA PO (08:35)
[2023-03-16] MEDS: Baclofen 10 MG Tablet PO (08:35)
[2023-03-16] MEDS: Loratadine 10 MG Tablet PO ×3 (08:35→21:32)
[2023-03-16] MEDS: amLODIPine 10 MG Tablet PO (08:35)
[2023-03-16] MEDS: Insulin Lispro 100 UNIT/ML INSULN.PEN 10 UNIT SC ×3 (08:37→17:44)
[2023-03-16] MEDS: Insulin Glargine-YFGN 100 UNIT/ML Pen 19 UNIT SC (08:39)
[2023-03-16 10:47] VITALS: PULSE 78; RESP 18; O2SAT 95
[2023-03-16 11:39] LABS: Bedside Glucose 158 mg/dL (74-106)
[2023-03-16 14:43] VITALS: BP 163/90; PULSE 78; RESP 16; TEMP 36.9; O2SAT 95
[2023-03-16 15:30] VITALS: BP 163/90; PULSE 78
[2023-03-16 17:14] LABS: Bedside Glucose 150 mg/dL (74-106)
[2023-03-16 21:32] VITALS: PULSE 84
[2023-03-16] MEDS: MELATONIN 3 MG TABLET PO ×2 (21:32)
[2023-03-16] MEDS: Atorvastatin Calcium 20 MG Tablet PO ×2 (21:32)
[2023-03-16] MEDS: Pramipexole Di-HCl 0.25 MG Tablet PO ×2 (21:32)
[2023-03-17 01:40] LABS: Bedside Glucose 124 mg/dL (74-106)
[2023-03-17] MEDS: Cephalexin 500 MG Capsule PO ×3 (02:07→11:21)
[2023-03-17 06:12] VITALS: BP 117/55; PULSE 68
[2023-03-17] MEDS: hydrALAZINE 25 MG Tablet PO ×3 (06:12→20:51)
[2023-03-17] MEDS: Levothyroxine 125 MCG Tablet PO (06:13)
[2023-03-17 06:51] LABS: Anion Gap 6 (5-15); BUN 42 mg/dL (7-18); BUN/Creat Ratio 34.1 RATIO (10-20); Calcium,Total 8.7 mg/dL (8.5-10.1); Chloride 107 mmol/L (98-107); Creatinine, Serum 1.23 mg/dL (0.55-1.02); EST Glomerular Filtration Rate 45 mL/min (>60); Est Glom Filt Rate - Afr Amer 54 mL/min (>60); Estimated Creatinine Clearance 36.07 ml/min; Glucose 124 mg/dL (74-106); Potassium 3.8 mmol/L (3.5-5.1); Sodium Level 139 mmol/L (136-145)
[2023-03-17 06:52] LABS: Bedside Glucose 124 mg/dL (74-106)
[2023-03-17] MEDS: Insulin Lispro 100 UNIT/ML INSULN.PEN 10 UNIT SC ×3 (07:57→17:37)
[2023-03-17] MEDS: Ergocalciferol 1.25 MG (50, 000 UNIT) Capsule PO (08:00)
[2023-03-17] MEDS: Baclofen 10 MG Tablet PO (08:01)
[2023-03-17] MEDS: Furosemide 40 MG Tablet PO (08:01)
[2023-03-17] MEDS: Tolterodine Tartrate 2 MG CAP.SA PO (08:02)
[2023-03-17] MEDS: Paroxetine 20 MG Tablet PO (08:02)
[2023-03-17] MEDS: Senna/Docusate Sodium 1 Tablet PO ×2 (08:02→20:51)
[2023-03-17] MEDS: Loratadine 10 MG Tablet PO ×2 (08:03→20:51)
[2023-03-17] MEDS: amLODIPine 10 MG Tablet PO (08:09)
[2023-03-17 08:15] VITALS: BP 139/61; PULSE 78
[2023-03-17] MEDS: Menthol/Lanolin/Calamine/Znox 113 GM Tube 1 APPLIC TOPICAL ×2 (10:12→20:54)
[2023-03-17] MEDS: Insulin Glargine-YFGN 100 UNIT/ML Pen 19 UNIT SC (10:14)
[2023-03-17] MEDS: hydrOXYzine PAM 25 MG Capsule 50 MG PO (10:18)
[2023-03-17] MEDS: Ammonium Lactate 225 gm Bottle 1 APPLIC TOPICAL ×2 (11:14→20:55)
[2023-03-17] MEDS: Petrolatum 33% Tube 1 APPLIC TOPICAL ×2 (11:17→20:54)
[2023-03-17] MEDS: Triamcinolone 0.1% Ointment 15 gm tube 1 APPLIC TOPICAL (11:23)
[2023-03-17] MEDS: Flu Vacc QS2023-24(65YR UP)/PF 240 MCG/0.7 ML Syringe IM (11:40)
[2023-03-17 11:49] LABS: Bedside Glucose 284 mg/dL (74-106)
--- NOTE | 2023-03-17 12:54 | CASEMGMT ---
Social Work BIMS () and PHQ-9 (09/12) completed for MDS assessment. Laura Avendano MSW APPLICATION SPECIALIST
[2023-03-17 14:05] VITALS: BP 137/49; PULSE 74
[2023-03-17 14:10] VITALS: BP 137/49; PULSE 74
--- NOTE | 2023-03-17 14:27 | MDS.RN ---
Pain interview for MDS complete
--- NOTE | 2023-03-17 14:32 | NURSING ---
FLU SHOT GIVEN IN RT DELT. PT TOLERATED WELL.
--- NOTE | 2023-03-17 15:10 | NURSING ---
PT DULCE LOWER LEGS RED,WARM,SWOLLEN AND ITCHY. REPORTED TO . SEE NEW ORDER. RN AWARE.
[2023-03-17] MEDS: Clobetasol Propionate 0.05% Ointment 1 APPLIC TOPICAL ×2 (15:46→20:53)
[2023-03-17 16:00] VITALS: RESP 16; TEMP 36.6; O2SAT 94
[2023-03-17] MEDS: Smz/Tmp Ds Tablet 1 TABLET PO (17:09)
[2023-03-17] MEDS: Doxycycline 100 MG CAPSULE PO ×2 (17:10→20:51)
[2023-03-17 17:34] LABS: Bedside Glucose 138 mg/dL (74-106)
[2023-03-17 20:51] VITALS: BP 149/54; PULSE 75
[2023-03-17] MEDS: Pramipexole Di-HCl 0.25 MG Tablet PO (20:51)
[2023-03-17] MEDS: MELATONIN 3 MG TABLET PO (20:51)
[2023-03-17] MEDS: Atorvastatin Calcium 20 MG Tablet PO (20:51)
[2023-03-17 22:18] LABS: Bedside Glucose 102 mg/dL (74-106)
[2023-03-18 05:44] VITALS: BP 140/52; PULSE 70
[2023-03-18] MEDS: hydrALAZINE 25 MG Tablet PO (05:44)
[2023-03-18] MEDS: Levothyroxine 125 MCG Tablet PO (05:44)
[2023-03-18 06:35] LABS: Bedside Glucose 111 mg/dL (74-106)
[2023-03-18] MEDS: Insulin Lispro 100 UNIT/ML INSULN.PEN 10 UNIT SC (08:30)
[2023-03-18] MEDS: Loratadine 10 MG Tablet PO (08:31)
[2023-03-18] MEDS: Doxycycline 100 MG CAPSULE PO (08:31)
[2023-03-18] MEDS: Tolterodine Tartrate 2 MG CAP.SA PO (08:32)
[2023-03-18] MEDS: Baclofen 10 MG Tablet PO (08:33)
[2023-03-18] MEDS: Furosemide 40 MG Tablet PO (08:33)
[2023-03-18] MEDS: Smz/Tmp Ds Tablet 0.5 TABLET PO (08:37)
[2023-03-18] MEDS: Insulin Glargine-YFGN 100 UNIT/ML Pen 19 UNIT SC (08:39)
[2023-03-18] MEDS: Clobetasol Propionate 0.05% Ointment 1 APPLIC TOPICAL (08:40)
[2023-03-18] MEDS: Senna/Docusate Sodium 1 Tablet PO (08:41)
[2023-03-18] MEDS: Menthol/Lanolin/Calamine/Znox 113 GM Tube 1 APPLIC TOPICAL (08:43)
[2023-03-18] MEDS: Paroxetine 20 MG Tablet PO (08:43)
[2023-03-18] MEDS: Ammonium Lactate 225 gm Bottle 1 APPLIC TOPICAL (08:45)
[2023-03-18] MEDS: amLODIPine 10 MG Tablet PO (08:46)
[2023-03-18] MEDS: Petrolatum 33% Tube 1 APPLIC TOPICAL (08:47)
[2023-03-18 09:02] LABS: Absolute Lymphocyte Count 1.42 X10^3/uL (0.83-4.51); Basophil# 0.05 X10^3/uL; Basophil% 0.6 % (0-1); Eosinophils% 5.2 % (0-5); Hematocrit 34.8 % (37-47); Hemoglobin 10.8 g/dL (12.0-15.0); Lymphocyte # 1.42 X10^3/ul (0.83-4.51); Lymphocyte % 18.3 % (19-41); Mean Corpuscular Hgb 28.1 pg (27.0-32.0); Mean Corpuscular Volume 90.6 fL (81-99); Mean Platelet Vol. 9.9 fl (6.2-12.0); Monocyte# 0.82 X10^3/uL; Monocyte% 10.6 % (0-10); NRBC Flagged by Analyzer 0 % (0-5); Neutrophil # 5.04 X10^3/uL (2.7-7.7); Platelet Count 333 K/mm3 (150-450); RBC Distribution Width CV 13.4 % (11.6-14.6); RBC Distribution Width SD 44.9 fl (35.1-43.9); Red Blood Count 3.84 M/mm3 (4.2-5.4); White Blood Count 7.8 K/mm3 (4.4-11.0)
[2023-03-18 09:52] LABS: Anion Gap 5 (5-15); BUN 33 mg/dL (7-18); BUN/Creat Ratio 30.8 RATIO (10-20); Calcium,Total 8.4 mg/dL (8.5-10.1); Chloride 106 mmol/L (98-107); Creatinine, Serum 1.07 mg/dL (0.55-1.02); EST Glomerular Filtration Rate 53 mL/min (>60); Est Glom Filt Rate - Afr Amer 64 mL/min (>60); Estimated Creatinine Clearance 41.46 ml/min; Glucose 111 mg/dL (74-106); Potassium 3.7 mmol/L (3.5-5.1); Sodium Level 138 mmol/L (136-145)
[2023-03-18 10:00] VITALS: PULSE 74; RESP 18; O2SAT 98
--- NOTE | 2023-03-18 10:38 | NURSING ---
Report given to Nia at [facility].
[2023-03-18 11:02] VITALS: BP 142/50; PULSE 74; RESP 18; TEMP 37.1; O2SAT 96
== END 2023-03-18 11:00 | DRG 690 ==
PROVIDERS: Admitting Provider Family Medicine Geriatric Medicine; PCP Family Medicine; Referring Provider Family Medicine Geriatric Medicine; Visit Provider Family Medicine Geriatric Medicine
DX: N39.0 Urinary tract infection, site not specified (principal); L03.115 Cellulitis of right lower limb; L03.116 Cellulitis of left lower limb; E11.42 Type 2 diabetes mellitus with diabetic polyneuropathy; E03.9 Hypothyroidism, unspecified; B35.4 Tinea corporis; B35.1 Tinea unguium; Z79.4 Long term (current) use of insulin; M06.9 Rheumatoid arthritis, unspecified; G25.81 Restless legs syndrome; I10 Essential (primary) hypertension; F32.A Depression, unspecified; E55.9 Vitamin D deficiency, unspecified; E78.2 Mixed hyperlipidemia; F41.9 Anxiety disorder, unspecified; I89.0 Lymphedema, not elsewhere classified; G47.00 Insomnia, unspecified; Z79.899 Other long term (current) drug therapy; Z79.890 Hormone replacement therapy
CPT/HCPCS: 36415; 80048; 82962; 85014; 85018; 85025; 87070; 87205; 87426; 87811; 97110; 97116; 97162; 97165; 97530; 97535; 97802; 90662

== ENCOUNTER → 2023-03-20 | Outpatient (REF) | payer MEDICARE, SELFPAY ==
[2023-03-20 09:02] LABS: Hematocrit 34.4 % (37-47); Hemoglobin 10.3 g/dL (12.0-15.0); Mean Corp Hgb Conc 29.9 g/dL (32-36); Mean Corpuscular Hgb 27.5 pg (27.0-32.0); Mean Corpuscular Volume 91.7 fL (81-99); Mean Platelet Vol. 10.5 fl (6.2-12.0); Platelet Count 333 K/mm3 (150-450); RBC Distribution Width CV 13.4 % (11.6-14.6); RBC Distribution Width SD 45.7 fl (35.1-43.9); Red Blood Count 3.75 M/mm3 (4.2-5.4)
[2023-03-20 09:31] LABS: Anion Gap 3 (5-15); BUN 24 mg/dL (7-18); BUN/Creat Ratio 24.2 RATIO (10-20); Calcium,Total 8.4 mg/dL (8.5-10.1); Chloride 105 mmol/L (98-107); Creatinine, Serum 0.99 mg/dL (0.55-1.02); EST Glomerular Filtration Rate 57 mL/min (>60); Est Glom Filt Rate - Afr Amer 70 mL/min (>60); Glucose 103 mg/dL (74-106); Potassium 3.7 mmol/L (3.5-5.1); Sodium Level 138 mmol/L (136-145); Thyroid Stim Hormone (TSH) 0.04 uIU/mL (0.358-3.74)
== END ==
LOC: OLS.SW 04:00
PROVIDERS: PCP Family Medicine; Referring Provider Family Medicine; Visit Provider Family Medicine
DX: E11.9 Type 2 diabetes mellitus without complications (principal)
CPT/HCPCS: 36415; 80048; 84443; 85027

== ENCOUNTER → 2023-04-04 | Outpatient (REF) | payer MEDICARE, SELFPAY ==
[2023-04-04 08:56] LABS: Hematocrit 39.9 % (37-47); Hemoglobin 11.9 g/dL (12.0-15.0); Mean Corp Hgb Conc 29.8 g/dL (32-36); Mean Corpuscular Hgb 27.4 pg (27.0-32.0); Mean Corpuscular Volume 91.9 fL (81-99); Mean Platelet Vol. 10.4 fl (6.2-12.0); Platelet Count 315 K/mm3 (150-450); RBC Distribution Width CV 13.9 % (11.6-14.6); Red Blood Count 4.34 M/mm3 (4.2-5.4); White Blood Count 8.5 K/mm3 (4.4-11.0)
[2023-04-04 09:27] LABS: ALB/GLOB Ratio 0.8 RATIO (0.9-2.4); AST(SGOT) 20 U/L (15-37); Alanine Aminotransfer ALT/SGPT 28 U/L (13-56); Albumin, Serum 2.8 g/dL (3.2-5.0); Alkaline Phosphatase 96 U/L (45-117); Anion Gap 4 (5-15); BUN 20 mg/dL (7-18); BUN/Creat Ratio 21.8 RATIO (10-20); Calcium,Total 8.6 mg/dL (8.5-10.1); Chloride 109 mmol/L (98-107); Creatinine, Serum 0.92 mg/dL (0.55-1.02); EST Glomerular Filtration Rate 63 mL/min (>60); Est Glom Filt Rate - Afr Amer 76 mL/min (>60); Globulin 3.7 g/dL (2.2-4.2); Glucose 112 mg/dL (74-106); Potassium 4.2 mmol/L (3.5-5.1); Protein, Total 6.5 g/dL (6.4-8.2); Sodium Level 140 mmol/L (136-145)
== END ==
LOC: OLS.SW 05:00
PROVIDERS: PCP Family Medicine; Visit Provider Family Medicine
DX: E11.9 Type 2 diabetes mellitus without complications (principal); I10 Essential (primary) hypertension
CPT/HCPCS: 36415; 80053; 85027

== ENCOUNTER → 2023-05-01 | Outpatient (REF) | payer MEDICARE, SELFPAY ==
[2023-05-01 09:05] LABS: Thyroid Stim Hormone (TSH) 1.91 uIU/mL (0.358-3.74)
== END ==
LOC: OLS.SW 05:00
PROVIDERS: PCP Family Medicine; Visit Provider Family Medicine
DX: E03.9 Hypothyroidism, unspecified (principal)
CPT/HCPCS: 36415; 84443

== ENCOUNTER → 2023-05-10 | Outpatient (REF) | payer MEDICARE, SELFPAY | LOC: OLS.SW 04:40 | PROVIDERS: PCP Family Medicine; Visit Provider Family Medicine | DX: N39.0 Urinary tract infection, site not specified (principal) | CPT/HCPCS: 87077; 87086; 87088; 87186 ==

== ENCOUNTER → 2023-06-20 | Outpatient (REF) | payer MEDICARE, SELFPAY ==
[2023-06-20 07:57] LABS: Absolute Lymphocyte Count 1.72 X10^3/uL (0.83-4.51); Absolute Neutrophil Count 5.3 X10^3/uL (2.0-7.7); Basophil# 0.09 X10^3/uL; Eosinophil# 0.67 X10^3/uL; Eosinophils% 7.8 % (0-5); Lymphocyte # 1.72 X10^3/ul (0.83-4.51); Mean Corp Hgb Conc 29.7 g/dL (32-36); Mean Corpuscular Hgb 27.7 pg (27.0-32.0); Mean Corpuscular Volume 93.2 fL (81-99); Mean Platelet Vol. 9.9 fl (6.2-12.0); Monocyte# 0.85 X10^3/uL; Monocyte% 9.9 % (0-10); NRBC Flagged by Analyzer 0 % (0-5); Neutrophil # 5.27 X10^3/uL (2.7-7.7); Neutrophil % 61.1 % (47-70); Platelet Count 317 K/mm3 (150-450); RBC Distribution Width CV 14.2 % (11.6-14.6); RBC Distribution Width SD 48.2 fl (35.1-43.9); Red Blood Count 3.97 M/mm3 (4.2-5.4); White Blood Count 8.6 K/mm3 (4.4-11.0)
[2023-06-20 08:19] LABS: Vitamin B12 430 pg/mL (211-911); Vitamin D,25 Hydroxy 60.6 ng/mL
[2023-06-20 08:20] LABS: Hemoglobin A1c 6.4 % (3.8-5.6)
[2023-06-20 08:28] LABS: Anion Gap 2 (5-15); BUN 19 mg/dL (7-18); BUN/Creat Ratio 19.8 RATIO (10-20); Calcium,Total 8.8 mg/dL (8.5-10.1); Chloride 108 mmol/L (98-107); Creatinine, Serum 0.96 mg/dL (0.55-1.02); EST Glomerular Filtration Rate 60 mL/min (>60); Est Glom Filt Rate - Afr Amer 72 mL/min (>60); Glucose 155 mg/dL (74-106); Sodium Level 140 mmol/L (136-145); Thyroid Stim Hormone (TSH) 1.57 uIU/mL (0.358-3.74)
== END ==
LOC: OLS.SWAL 05:00
PROVIDERS: PCP Family Medicine; Visit Provider Internal Medicine
DX: I10 Essential (primary) hypertension (principal); E55.9 Vitamin D deficiency, unspecified; E03.9 Hypothyroidism, unspecified; E11.42 Type 2 diabetes mellitus with diabetic polyneuropathy
CPT/HCPCS: 36415; 80048; 82306; 82607; 83036; 83735; 84443; 85025

== ENCOUNTER → 2023-06-23 | Outpatient (REF) | payer MEDICARE, SELFPAY | LOC: OLS.SW 11:00 | PROVIDERS: PCP Family Medicine; Visit Provider Internal Medicine | DX: N39.0 Urinary tract infection, site not specified (principal) | CPT/HCPCS: 87077; 87086; 87088; 87186 ==

== ENCOUNTER → 2023-07-03 | Outpatient (REF) | payer MEDICARE, SELFPAY ==
[2023-07-03 09:09] LABS: Anion Gap 6 (5-15); BUN 20 mg/dL (7-18); BUN/Creat Ratio 20.5 RATIO (10-20); Calcium,Total 8.6 mg/dL (8.5-10.1); Chloride 106 mmol/L (98-107); Creatinine, Serum 0.98 mg/dL (0.55-1.02); EST Glomerular Filtration Rate 58 mL/min (>60); Est Glom Filt Rate - Afr Amer 71 mL/min (>60); Glucose 134 mg/dL (74-106); Sodium Level 140 mmol/L (136-145)
== END ==
LOC: OLS.SWAL 05:00
PROVIDERS: PCP Family Medicine; Visit Provider Internal Medicine
DX: I89.0 Lymphedema, not elsewhere classified (principal); R60.9 Edema, unspecified
CPT/HCPCS: 36415; 80048

== ENCOUNTER → 2023-07-17 | Outpatient (REF) | payer MEDICARE, SELFPAY ==
[2023-07-17 08:26] LABS: Anion Gap 2 (5-15); BUN 26 mg/dL (7-18); BUN/Creat Ratio 22.6 RATIO (10-20); Calcium,Total 9.3 mg/dL (8.5-10.1); Chloride 106 mmol/L (98-107); Creatinine, Serum 1.15 mg/dL (0.55-1.02); EST Glomerular Filtration Rate 48 mL/min (>60); Est Glom Filt Rate - Afr Amer 58 mL/min (>60); Glucose 141 mg/dL (74-106); Sodium Level 137 mmol/L (136-145)
== END ==
LOC: OLS.SWAL 04:00
PROVIDERS: PCP Family Medicine; Referring Provider Internal Medicine; Visit Provider Internal Medicine
DX: I89.0 Lymphedema, not elsewhere classified (principal); R60.9 Edema, unspecified
CPT/HCPCS: 36415; 80048

== ENCOUNTER → 2023-07-31 | Outpatient (REF) | payer MEDICARE, SELFPAY ==
[2023-07-31 10:25] LABS: Anion Gap 5 (5-15); BUN 23 mg/dL (7-18); BUN/Creat Ratio 21.7 RATIO (10-20); Calcium,Total 8.7 mg/dL (8.5-10.1); Chloride 107 mmol/L (98-107); Creatinine, Serum 1.06 mg/dL (0.55-1.02); EST Glomerular Filtration Rate 53 mL/min (>60); Est Glom Filt Rate - Afr Amer 64 mL/min (>60); Glucose 149 mg/dL (74-106); Potassium 3.4 mmol/L (3.5-5.1); Sodium Level 142 mmol/L (136-145)
== END | disposition home or self-care (01) ==
LOC: OLS.SWAL 05:00
PROVIDERS: PCP Family Medicine; Visit Provider Internal Medicine
DX: I89.0 Lymphedema, not elsewhere classified (principal); R60.9 Edema, unspecified
CPT/HCPCS: 36415; 80048

== ENCOUNTER → 2023-08-14 | Outpatient (REF) | payer MEDICARE, MEDICAID, SELFPAY ==
[2023-08-14 09:36] LABS: Anion Gap 5 (5-15); BUN 28 mg/dL (7-18); BUN/Creat Ratio 24.8 RATIO (10-20); Calcium,Total 9.1 mg/dL (8.5-10.1); Chloride 104 mmol/L (98-107); Creatinine, Serum 1.13 mg/dL (0.55-1.02); EST Glomerular Filtration Rate 49 mL/min (>60); Est Glom Filt Rate - Afr Amer 60 mL/min (>60); Glucose 146 mg/dL (74-106); Potassium 3.4 mmol/L (3.5-5.1); Sodium Level 138 mmol/L (136-145)
== END ==
LOC: OLS.SWAL 04:00
PROVIDERS: PCP Family Medicine; Referring Provider Internal Medicine; Visit Provider Internal Medicine
DX: I89.0 Lymphedema, not elsewhere classified (principal); R60.9 Edema, unspecified
CPT/HCPCS: 36415; 80048

== ENCOUNTER → 2023-08-17 | Outpatient (REF) | payer MEDICARE, MEDICAID, SELFPAY ==
[2023-08-17 09:05] LABS: Anion Gap 4 (5-15); BUN 26 mg/dL (7-18); BUN/Creat Ratio 22.8 RATIO (10-20); Calcium,Total 8.8 mg/dL (8.5-10.1); Chloride 105 mmol/L (98-107); Creatinine, Serum 1.14 mg/dL (0.55-1.02); EST Glomerular Filtration Rate 49 mL/min (>60); Est Glom Filt Rate - Afr Amer 59 mL/min (>60); Glucose 192 mg/dL (74-106); Potassium 3.8 mmol/L (3.5-5.1); Sodium Level 138 mmol/L (136-145)
== END ==
LOC: OLS.SWAL 07:50
PROVIDERS: PCP Family Medicine; Visit Provider Internal Medicine
DX: I89.0 Lymphedema, not elsewhere classified (principal); R60.9 Edema, unspecified
CPT/HCPCS: 36415; 80048

== ENCOUNTER → 2023-08-31 | Outpatient (REF) | payer MEDICARE, MEDICAID, SELFPAY ==
[2023-08-31 10:21] LABS: Anion Gap 6 (5-15); BUN 24 mg/dL (7-18); BUN/Creat Ratio 20.3 RATIO (10-20); Calcium,Total 8.9 mg/dL (8.5-10.1); Chloride 104 mmol/L (98-107); Creatinine, Serum 1.18 mg/dL (0.55-1.02); EST Glomerular Filtration Rate 47 mL/min (>60); Est Glom Filt Rate - Afr Amer 57 mL/min (>60); Glucose 169 mg/dL (74-106); Potassium 3.6 mmol/L (3.5-5.1); Sodium Level 140 mmol/L (136-145)
== END ==
LOC: OLS.SWAL 05:00
PROVIDERS: PCP Family Medicine; Visit Provider Internal Medicine
DX: I89.0 Lymphedema, not elsewhere classified (principal); R60.9 Edema, unspecified
CPT/HCPCS: 36415; 80048

== ENCOUNTER → 2023-09-14 | Outpatient (REF) | payer MEDICARE, MEDICAID, SELFPAY ==
[2023-09-14 09:41] LABS: Anion Gap 3 (5-15); BUN 19 mg/dL (7-18); BUN/Creat Ratio 17.8 RATIO (10-20); Calcium,Total 8.7 mg/dL (8.5-10.1); Chloride 106 mmol/L (98-107); Creatinine, Serum 1.07 mg/dL (0.55-1.02); EST Glomerular Filtration Rate 52 mL/min (>60); Est Glom Filt Rate - Afr Amer 63 mL/min (>60); Glucose 191 mg/dL (74-106); Potassium 3.8 mmol/L (3.5-5.1); Sodium Level 138 mmol/L (136-145)
== END ==
LOC: OLS.SWAL 05:00
PROVIDERS: PCP Family Medicine; Visit Provider Internal Medicine
DX: I89.0 Lymphedema, not elsewhere classified (principal)
CPT/HCPCS: 36415; 80048

== ENCOUNTER → 2023-09-29 | Outpatient (REF) | payer MEDICARE, MEDICAID, SELFPAY ==
[2023-09-29 09:20] LABS: Anion Gap 3 (5-15); BUN 28 mg/dL (7-18); BUN/Creat Ratio 23.7 RATIO (10-20); Calcium,Total 8.5 mg/dL (8.5-10.1); Chloride 106 mmol/L (98-107); Creatinine, Serum 1.18 mg/dL (0.55-1.02); EST Glomerular Filtration Rate 47 mL/min (>60); Est Glom Filt Rate - Afr Amer 57 mL/min (>60); Glucose 165 mg/dL (74-106); Potassium 3.5 mmol/L (3.5-5.1); Sodium Level 135 mmol/L (136-145)
== END ==
LOC: OLS.SWAL 05:00
PROVIDERS: PCP Family Medicine; Visit Provider Internal Medicine
DX: I89.0 Lymphedema, not elsewhere classified (principal); R60.9 Edema, unspecified
CPT/HCPCS: 36415; 80048

== ENCOUNTER → 2023-10-13 | Outpatient (REF) | payer MEDICAID, SELFPAY ==
[2023-10-13 07:49] LABS: Anion Gap 4 (5-15); BUN 19 mg/dL (7-18); BUN/Creat Ratio 17.1 RATIO (10-20); Calcium,Total 8.8 mg/dL (8.5-10.1); Chloride 105 mmol/L (98-107); Creatinine, Serum 1.11 mg/dL (0.55-1.02); EST Glomerular Filtration Rate 50 mL/min (>60); Est Glom Filt Rate - Afr Amer 61 mL/min (>60); Glucose 121 mg/dL (74-106); Potassium 3.4 mmol/L (3.5-5.1); Sodium Level 140 mmol/L (136-145)
== END | disposition home or self-care (01) ==
LOC: OLS.SWAL 05:00
PROVIDERS: PCP Family Medicine; Visit Provider Internal Medicine
DX: I89.0 Lymphedema, not elsewhere classified (principal); R60.9 Edema, unspecified
CPT/HCPCS: 36415; 80048

== ENCOUNTER → 2023-10-27 | Outpatient (REF) | payer MEDICARE, MEDICAID, SELFPAY ==
[2023-10-27 09:18] LABS: Anion Gap 2 (5-15); BUN 20 mg/dL (7-18); BUN/Creat Ratio 20.2 RATIO (10-20); Calcium,Total 8.5 mg/dL (8.5-10.1); Chloride 103 mmol/L (98-107); Creatinine, Serum 0.99 mg/dL (0.55-1.02); EST Glomerular Filtration Rate 57 mL/min (>60); Est Glom Filt Rate - Afr Amer 70 mL/min (>60); Glucose 124 mg/dL (74-106); Potassium 3.7 mmol/L (3.5-5.1); Sodium Level 139 mmol/L (136-145)
== END ==
LOC: OLS.SWAL 05:00
PROVIDERS: PCP Family Medicine; Visit Provider Internal Medicine
DX: I89.0 Lymphedema, not elsewhere classified (principal); R60.9 Edema, unspecified
CPT/HCPCS: 36415; 80048

== ENCOUNTER → 2023-11-10 | Outpatient (REF) | payer MEDICARE, MEDICAID, SELFPAY ==
[2023-11-10 09:35] LABS: Anion Gap 6 (5-15); BUN 24 mg/dL (7-18); Chloride 105 mmol/L (98-107); EST Glomerular Filtration Rate 46 mL/min (>60); Est Glom Filt Rate - Afr Amer 56 mL/min (>60); Glucose 124 mg/dL (74-106); Potassium 4.3 mmol/L (3.5-5.1); Sodium Level 140 mmol/L (136-145)
== END ==
LOC: OLS.SWAL 05:00
PROVIDERS: PCP Family Medicine; Visit Provider Internal Medicine
DX: I89.0 Lymphedema, not elsewhere classified (principal); R60.9 Edema, unspecified
CPT/HCPCS: 36415; 80048

== ENCOUNTER → 2023-11-24 04:00 | Outpatient (REF) | payer MEDICARE, MEDICAID, SELFPAY ==
[2023-11-24 09:06] LABS: Anion Gap 8 (5-15); BUN 42 mg/dL (7-18); BUN/Creat Ratio 21.8 RATIO (10-20); Calcium,Total 8.8 mg/dL (8.5-10.1); Chloride 105 mmol/L (98-107); Creatinine, Serum 1.93 mg/dL (0.55-1.02); EST Glomerular Filtration Rate 27 mL/min (>60); Est Glom Filt Rate - Afr Amer 32 mL/min (>60); Glucose 197 mg/dL (74-106); Potassium 4.6 mmol/L (3.5-5.1); Sodium Level 140 mmol/L (136-145)
== END ==
LOC: OLS.SWAL 04:00
PROVIDERS: PCP Family Medicine; Referring Provider Internal Medicine; Visit Provider Internal Medicine
DX: I89.0 Lymphedema, not elsewhere classified (principal); R60.9 Edema, unspecified
CPT/HCPCS: 36415; 80048

== ENCOUNTER → 2023-12-04 | Outpatient (REF) | payer MEDICARE, MEDICAID, SELFPAY ==
[2023-12-04 08:47] LABS: Anion Gap 5 (5-15); BUN 19 mg/dL (7-18); BUN/Creat Ratio 20.1 RATIO (10-20); Calcium,Total 8.5 mg/dL (8.5-10.1); Chloride 104 mmol/L (98-107); Creatinine, Serum 0.94 mg/dL (0.55-1.02); EST Glomerular Filtration Rate 61 mL/min (>60); Est Glom Filt Rate - Afr Amer 73 mL/min (>60); Glucose 181 mg/dL (74-106); Potassium 3.7 mmol/L (3.5-5.1); Sodium Level 138 mmol/L (136-145)
== END ==
LOC: OLS.SWAL 07:00
PROVIDERS: PCP Family Medicine; Visit Provider Internal Medicine
DX: E11.42 Type 2 diabetes mellitus with diabetic polyneuropathy (principal); I89.0 Lymphedema, not elsewhere classified; M06.9 Rheumatoid arthritis, unspecified; E78.5 Hyperlipidemia, unspecified
CPT/HCPCS: 36415; 80048

== ENCOUNTER → 2023-12-08 05:00 | Outpatient (REF) | payer MEDICARE, MEDICAID, SELFPAY ==
[2023-12-08 08:03] LABS: Anion Gap 7 (5-15); BUN 22 mg/dL (7-18); BUN/Creat Ratio 16.1 RATIO (10-20); Calcium,Total 9.4 mg/dL (8.5-10.1); Chloride 102 mmol/L (98-107); Creatinine, Serum 1.37 mg/dL (0.55-1.02); EST Glomerular Filtration Rate 39 mL/min (>60); Est Glom Filt Rate - Afr Amer 48 mL/min (>60); Glucose 122 mg/dL (74-106); Potassium 3.9 mmol/L (3.5-5.1); Sodium Level 135 mmol/L (136-145)
== END ==
LOC: OLS.SWAL 05:00
PROVIDERS: PCP Family Medicine; Visit Provider Internal Medicine
DX: I89.0 Lymphedema, not elsewhere classified (principal); R60.9 Edema, unspecified
CPT/HCPCS: 36415; 80048

== ENCOUNTER → 2023-12-22 04:00 | Outpatient (REF) | payer MEDICARE, MEDICAID, SELFPAY ==
[2023-12-22 09:11] LABS: Hematocrit 39.1 % (37-47); Hemoglobin 11.8 g/dL (12.0-15.0); Mean Corp Hgb Conc 30.2 g/dL (32-36); Mean Corpuscular Hgb 28.2 pg (27.0-32.0); Mean Corpuscular Volume 93.3 fL (81-99); Mean Platelet Vol. 10.3 fl (6.2-12.0); Platelet Count 250 K/mm3 (150-450); RBC Distribution Width CV 13.9 % (11.6-14.6); RBC Distribution Width SD 47.2 fl (35.1-43.9); Red Blood Count 4.19 M/mm3 (4.2-5.4)
[2023-12-22 10:31] LABS: Anion Gap 6 (5-15); BUN 22 mg/dL (7-18); BUN/Creat Ratio 19.8 RATIO (10-20); Calcium,Total 8.9 mg/dL (8.5-10.1); Chloride 102 mmol/L (98-107); Cholesterol 138 mg/dL (200); Creatinine, Serum 1.11 mg/dL (0.55-1.02); EST Glomerular Filtration Rate 50 mL/min (>60); Est Glom Filt Rate - Afr Amer 61 mL/min (>60); Glucose 245 mg/dL (74-106); High Density Lipoprotein 51 mg/dL; Potassium 3.5 mmol/L (3.5-5.1); Sodium Level 140 mmol/L (136-145); Triglycerides 103 mg/dL; Very Low Density Lipoprotein 21 mg/dL (5-40)
[2023-12-22 14:06] LABS: Hemoglobin A1c 6.6 % (3.8-5.6)
== END ==
LOC: OLS.SWAL 04:00
PROVIDERS: PCP Family Medicine; Referring Provider Internal Medicine; Visit Provider Internal Medicine
DX: E78.5 Hyperlipidemia, unspecified (principal); I89.0 Lymphedema, not elsewhere classified; R60.9 Edema, unspecified; E11.42 Type 2 diabetes mellitus with diabetic polyneuropathy
CPT/HCPCS: 36415; 80048; 80061; 83036; 85027

== ENCOUNTER → 2024-01-05 05:55 | Outpatient (REF) | payer MEDICARE, MEDICAID, SELFPAY ==
[2024-01-05 07:12] LABS: Anion Gap 6 (5-15); BUN 24 mg/dL (7-18); BUN/Creat Ratio 21.6 RATIO (10-20); Calcium,Total 8.8 mg/dL (8.5-10.1); Chloride 104 mmol/L (98-107); Creatinine, Serum 1.11 mg/dL (0.55-1.02); EST Glomerular Filtration Rate 50 mL/min (>60); Est Glom Filt Rate - Afr Amer 61 mL/min (>60); Glucose 97 mg/dL (74-106); Potassium 3.7 mmol/L (3.5-5.1); Sodium Level 140 mmol/L (136-145)
== END ==
LOC: OLS.SWAL 05:55
PROVIDERS: PCP Family Medicine; Visit Provider Internal Medicine
DX: I89.0 Lymphedema, not elsewhere classified (principal); R60.9 Edema, unspecified
CPT/HCPCS: 36415; 80048

== ENCOUNTER → 2024-01-06 08:00 | Outpatient (REF) | payer MEDICARE, MEDICAID, SELFPAY ==
[2024-01-09 09:15] LABS: Mucous, Urine 0 SEEN /hpf (<or=2+)
[2024-01-09 09:37] LABS: Color, Urine Yellow (Yellow); Glucose, Dipstick Normal (Normal); Ketone-Dipstick Negative (Negative); Leukocyte Esterase-Dipstick 500 /ul (Negative); Nitrite-Dipstick Positive (Negative); Occult Blood-Urine 10 /ul (Negative); Protein-Dipstick Negative (Negative); Urine Bilirubin Dipstick Negative (Negative); Urine Clarity Cloudy (Clear); Urine Urobilinogen Normal (Normal); Urine pH 6.5 (5.0 - 8.0)
[2024-01-09 09:46] LABS: Bacteria 4+ /hpf (None Seen); Red Blood Cells-Urine 0-5 SEEN /hpf (0-5); Squamous Epithelial Cells - UA 0-5 SEEN /hpf (5-10); White Blood Cells 10-25 SEEN /hpf (0-5)
== END ==
LOC: OLS.SWAL 08:00
PROVIDERS: PCP Family Medicine
DX: N39.0 Urinary tract infection, site not specified (principal)
CPT/HCPCS: 81001; 87086; 87088; 87186

== ENCOUNTER → 2024-01-22 05:00 | Outpatient (REF) | payer MEDICARE, MEDICAID, SELFPAY ==
[2024-01-22 09:10] LABS: Anion Gap 5 (5-15); BUN 33 mg/dL (7-18); BUN/Creat Ratio 24.1 RATIO (10-20); Calcium,Total 8.7 mg/dL (8.5-10.1); Chloride 105 mmol/L (98-107); Creatinine, Serum 1.37 mg/dL (0.55-1.02); EST Glomerular Filtration Rate 39 mL/min (>60); Est Glom Filt Rate - Afr Amer 48 mL/min (>60); Glucose 217 mg/dL (74-106); Sodium Level 140 mmol/L (136-145)
== END ==
LOC: OLS.SWAL 05:00
PROVIDERS: PCP Family Medicine; Visit Provider Internal Medicine
DX: I89.0 Lymphedema, not elsewhere classified (principal); R60.9 Edema, unspecified
CPT/HCPCS: 36415; 80048

== ENCOUNTER → 2024-01-24 | Outpatient (REF) | payer MEDICARE, MEDICAID, SELFPAY ==
[2024-01-24 08:59] LABS: Anion Gap 7 (5-15); BUN 20 mg/dL (7-18); BUN/Creat Ratio 17.1 RATIO (10-20); Calcium,Total 9.1 mg/dL (8.5-10.1); Chloride 105 mmol/L (98-107); Creatinine, Serum 1.17 mg/dL (0.55-1.02); EST Glomerular Filtration Rate 47 mL/min (>60); Est Glom Filt Rate - Afr Amer 57 mL/min (>60); Glucose 125 mg/dL (74-106); Potassium 3.8 mmol/L (3.5-5.1); Sodium Level 141 mmol/L (136-145)
[2024-01-24 09:13] LABS: BNP,B-Type NATRIURETIC PEPTIDE 81.5 pg/mL (0-100)
== END ==
LOC: OLS.SWAL 07:25
PROVIDERS: PCP Family Medicine; Visit Provider Internal Medicine
DX: R06.02 Shortness of breath (principal); R60.9 Edema, unspecified
CPT/HCPCS: 36415; 80048; 83880

== ENCOUNTER → 2024-02-05 | Outpatient (REF) | payer MEDICARE, MEDICAID, SELFPAY ==
[2024-02-05 08:21] LABS: Anion Gap 5 (5-15); BUN 25 mg/dL (7-18); BUN/Creat Ratio 21.9 RATIO (10-20); Calcium,Total 8.5 mg/dL (8.5-10.1); Chloride 104 mmol/L (98-107); Creatinine, Serum 1.14 mg/dL (0.55-1.02); EST Glomerular Filtration Rate 49 mL/min (>60); Est Glom Filt Rate - Afr Amer 59 mL/min (>60); Glucose 231 mg/dL (74-106); Potassium 3.6 mmol/L (3.5-5.1); Sodium Level 138 mmol/L (136-145)
== END ==
LOC: OLS.SWAL 05:00
PROVIDERS: PCP Family Medicine; Visit Provider Internal Medicine
DX: I89.0 Lymphedema, not elsewhere classified (principal); R60.9 Edema, unspecified
CPT/HCPCS: 36415; 80048

== ENCOUNTER → 2024-02-20 05:00 | Outpatient (REF) | payer MEDICARE, MEDICAID, SELFPAY ==
[2024-02-20 09:48] LABS: Anion Gap 6 (5-15); BUN 21 mg/dL (7-18); BUN/Creat Ratio 21.6 RATIO (10-20); Calcium,Total 8.7 mg/dL (8.5-10.1); Chloride 104 mmol/L (98-107); Creatinine, Serum 0.97 mg/dL (0.55-1.02); EST Glomerular Filtration Rate 58 mL/min (>60); Est Glom Filt Rate - Afr Amer 71 mL/min (>60); Glucose 160 mg/dL (74-106); Potassium 3.6 mmol/L (3.5-5.1); Sodium Level 141 mmol/L (136-145)
== END ==
LOC: OLS.SWAL 05:00
PROVIDERS: PCP Family Medicine; Visit Provider Internal Medicine
DX: I89.0 Lymphedema, not elsewhere classified (principal); R60.9 Edema, unspecified
CPT/HCPCS: 36415; 80048

== ENCOUNTER → 2024-03-06 | Outpatient (REF) | payer MEDICARE, MEDICAID, SELFPAY ==
[2024-03-06 08:37] LABS: Anion Gap 6 (5-15); BUN 27 mg/dL (7-18); BUN/Creat Ratio 25.2 RATIO (10-20); Calcium,Total 8.7 mg/dL (8.5-10.1); Chloride 104 mmol/L (98-107); Creatinine, Serum 1.07 mg/dL (0.55-1.02); EST Glomerular Filtration Rate 52 mL/min (>60); Est Glom Filt Rate - Afr Amer 63 mL/min (>60); Glucose 123 mg/dL (74-106); Potassium 3.5 mmol/L (3.5-5.1); Sodium Level 141 mmol/L (136-145)
== END ==
LOC: OLS.SWAL 05:00
PROVIDERS: PCP Family Medicine; Visit Provider Internal Medicine
DX: E78.5 Hyperlipidemia, unspecified (principal); I89.0 Lymphedema, not elsewhere classified; R60.9 Edema, unspecified
CPT/HCPCS: 36415; 80048

== ENCOUNTER → 2024-03-20 | Outpatient (REF) | payer MEDICARE, MEDICAID, SELFPAY ==
[2024-03-20 09:48] LABS: Anion Gap 4 (5-15); BUN 20 mg/dL (7-18); BUN/Creat Ratio 20.4 RATIO (10-20); Calcium,Total 8.8 mg/dL (8.5-10.1); Chloride 104 mmol/L (98-107); Creatinine, Serum 0.98 mg/dL (0.55-1.02); EST Glomerular Filtration Rate 58 mL/min (>60); Est Glom Filt Rate - Afr Amer 70 mL/min (>60); Glucose 102 mg/dL (74-106); Magnesium 2.2 mg/dL (1.6-2.6); Potassium 4.2 mmol/L (3.5-5.1); Sodium Level 135 mmol/L (136-145)
== END ==
LOC: OLS.SWAL 05:00
PROVIDERS: PCP Family Medicine; Visit Provider Internal Medicine
DX: I89.0 Lymphedema, not elsewhere classified (principal); R60.9 Edema, unspecified
CPT/HCPCS: 36415; 80048; 83735

== ENCOUNTER → 2024-04-01 | Outpatient (REF) | payer MEDICARE, MEDICAID, SELFPAY ==
[2024-04-01 08:44] LABS: Hemoglobin A1c 6.2 % (3.8-5.6)
== END ==
LOC: OLS.SWAL 05:00
PROVIDERS: PCP Family Medicine; Visit Provider Internal Medicine
DX: E03.9 Hypothyroidism, unspecified (principal); E11.9 Type 2 diabetes mellitus without complications; E55.9 Vitamin D deficiency, unspecified
CPT/HCPCS: 36415; 82306; 83036; 84443

== ENCOUNTER → 2024-04-04 | Outpatient (REF) | payer MEDICARE, MEDICAID, SELFPAY ==
[2024-04-04 08:59] LABS: Anion Gap 4 (5-15); BUN 28 mg/dL (7-18); BUN/Creat Ratio 23.3 RATIO (10-20); Calcium,Total 9.4 mg/dL (8.5-10.1); Chloride 103 mmol/L (98-107); EST Glomerular Filtration Rate 46 mL/min (>60); Est Glom Filt Rate - Afr Amer 56 mL/min (>60); Glucose 120 mg/dL (74-106); Magnesium 2.1 mg/dL (1.6-2.6); Potassium 4.1 mmol/L (3.5-5.1); Sodium Level 140 mmol/L (136-145)
== END ==
LOC: OLS.SWAL 05:00
PROVIDERS: PCP Family Medicine; Visit Provider Internal Medicine
DX: I89.0 Lymphedema, not elsewhere classified (principal); R60.9 Edema, unspecified
CPT/HCPCS: 36415; 80048; 83735

== ENCOUNTER → 2024-04-17 | Outpatient (REF) | payer SELFPAY ==
[2024-04-17 08:31] LABS: Anion Gap 3 (5-15); BUN 21 mg/dL (7-18); BUN/Creat Ratio 20.4 RATIO (10-20); Calcium,Total 8.6 mg/dL (8.5-10.1); Chloride 105 mmol/L (98-107); Creatinine, Serum 1.03 mg/dL (0.55-1.02); EST Glomerular Filtration Rate 55 mL/min (>60); Est Glom Filt Rate - Afr Amer 66 mL/min (>60); Glucose 172 mg/dL (74-106); Potassium 3.6 mmol/L (3.5-5.1); Sodium Level 140 mmol/L (136-145)
[2024-04-17 16:19] LABS: Magnesium 2.3 mg/dL (1.6-2.6)
== END ==
LOC: OLS.SWAL 05:00
PROVIDERS: PCP Family Medicine; Visit Provider Internal Medicine
DX: Z79.899 Other long term (current) drug therapy (principal)
CPT/HCPCS: 83735

== ENCOUNTER → 2024-05-01 | Outpatient (REF) | payer MEDICARE, MEDICAID, SELFPAY ==
[2024-05-01 07:54] LABS: Anion Gap 7 (5-15); BUN 27 mg/dL (7-18); BUN/Creat Ratio 21.4 RATIO (10-20); Calcium,Total 9.2 mg/dL (8.5-10.1); Chloride 106 mmol/L (98-107); Creatinine, Serum 1.26 mg/dL (0.55-1.02); EST Glomerular Filtration Rate 43 mL/min (>60); Est Glom Filt Rate - Afr Amer 53 mL/min (>60); Glucose 126 mg/dL (74-106); Magnesium 2.1 mg/dL (1.6-2.6); Potassium 4.3 mmol/L (3.5-5.1); Sodium Level 140 mmol/L (136-145)
== END ==
LOC: OLS.SWAL 05:00
PROVIDERS: PCP Family Medicine; Visit Provider Internal Medicine
DX: I89.0 Lymphedema, not elsewhere classified (principal); R60.9 Edema, unspecified
CPT/HCPCS: 36415; 80048; 83735

== ENCOUNTER → 2024-05-15 | Outpatient (REF) | payer MEDICARE, MEDICAID, SELFPAY ==
[2024-05-15 09:10] LABS: Anion Gap 5 (5-15); BUN 33 mg/dL (7-18); BUN/Creat Ratio 31.1 RATIO (10-20); Calcium,Total 8.7 mg/dL (8.5-10.1); Chloride 105 mmol/L (98-107); Creatinine, Serum 1.06 mg/dL (0.55-1.02); EST Glomerular Filtration Rate 53 mL/min (>60); Est Glom Filt Rate - Afr Amer 64 mL/min (>60); Glucose 119 mg/dL (74-106); Magnesium 2.1 mg/dL (1.6-2.6); Potassium 3.6 mmol/L (3.5-5.1); Sodium Level 140 mmol/L (136-145)
== END ==
LOC: OLS.SWAL 04:00
PROVIDERS: PCP Family Medicine; Referring Provider Internal Medicine; Visit Provider Internal Medicine
DX: I89.0 Lymphedema, not elsewhere classified (principal); R60.9 Edema, unspecified
CPT/HCPCS: 36415; 80048; 83735

== ENCOUNTER → 2024-05-29 | Outpatient (REF) | payer MEDICARE, MEDICAID, SELFPAY ==
[2024-05-29 08:23] LABS: Anion Gap 5 (5-15); BUN 29 mg/dL (7-18); BUN/Creat Ratio 22.1 RATIO (10-20); Calcium,Total 8.9 mg/dL (8.5-10.1); Chloride 106 mmol/L (98-107); Creatinine, Serum 1.31 mg/dL (0.55-1.02); EST Glomerular Filtration Rate 41 mL/min (>60); Est Glom Filt Rate - Afr Amer 50 mL/min (>60); Glucose 116 mg/dL (74-106); Potassium 3.6 mmol/L (3.5-5.1); Sodium Level 142 mmol/L (136-145)
== END ==
LOC: OLS.SWAL 05:00
PROVIDERS: PCP Family Medicine; Visit Provider Internal Medicine
DX: I89.0 Lymphedema, not elsewhere classified (principal); R60.9 Edema, unspecified
CPT/HCPCS: 36415; 80048; 83735

== ENCOUNTER → 2024-06-13 06:35 | Outpatient (REF) | payer MEDICARE, MEDICAID, SELFPAY ==
[2024-06-13 08:24] LABS: Anion Gap 5 (5-15); BUN 32 mg/dL (7-18); BUN/Creat Ratio 32.6 RATIO (10-20); Calcium,Total 8.7 mg/dL (8.5-10.1); Chloride 105 mmol/L (98-107); Creatinine, Serum 0.98 mg/dL (0.55-1.02); EST Glomerular Filtration Rate 58 mL/min (>60); Est Glom Filt Rate - Afr Amer 70 mL/min (>60); Glucose 161 mg/dL (74-106); Magnesium 2.2 mg/dL (1.6-2.6); Potassium 3.8 mmol/L (3.5-5.1); Sodium Level 138 mmol/L (136-145)
== END ==
LOC: OLS.SWAL 06:35
PROVIDERS: PCP Family Medicine; Visit Provider Internal Medicine
DX: I89.0 Lymphedema, not elsewhere classified (principal); R30.9 Painful micturition, unspecified
CPT/HCPCS: 36415; 80048; 83735

== ENCOUNTER → 2024-06-27 | Outpatient (REF) | payer MEDICARE, MEDICAID, SELFPAY ==
[2024-06-27 09:55] LABS: Anion Gap 4 (5-15); BUN 28 mg/dL (7-18); BUN/Creat Ratio 23.7 RATIO (10-20); Calcium,Total 8.7 mg/dL (8.5-10.1); Chloride 105 mmol/L (98-107); Creatinine, Serum 1.18 mg/dL (0.55-1.02); EST Glomerular Filtration Rate 47 mL/min (>60); Est Glom Filt Rate - Afr Amer 57 mL/min (>60); Glucose 85 mg/dL (74-106); Magnesium 2.2 mg/dL (1.6-2.6); Potassium 3.8 mmol/L (3.5-5.1); Sodium Level 140 mmol/L (136-145)
== END ==
LOC: OLS.SWAL 05:00
PROVIDERS: PCP Family Medicine; Visit Provider Internal Medicine
DX: I89.0 Lymphedema, not elsewhere classified (principal); R60.9 Edema, unspecified
CPT/HCPCS: 36415; 80048; 83735

== ENCOUNTER → 2024-07-11 05:00 | Outpatient (REF) | payer MEDICARE, MEDICAID, SELFPAY ==
[2024-07-11 08:27] LABS: Anion Gap 5 (5-15); BUN 26 mg/dL (7-18); BUN/Creat Ratio 30.4 RATIO (10-20); Chloride 103 mmol/L (98-107); Creatinine, Serum 0.86 mg/dL (0.55-1.02); EST Glomerular Filtration Rate 68 mL/min (>60); Est Glom Filt Rate - Afr Amer 82 mL/min (>60); Glucose 109 mg/dL (74-106); Magnesium 2.2 mg/dL (1.6-2.6); Potassium 4.1 mmol/L (3.5-5.1); Sodium Level 140 mmol/L (136-145)
== END ==
LOC: OLS.SWAL 05:00
PROVIDERS: PCP Family Medicine; Visit Provider Internal Medicine
DX: I89.0 Lymphedema, not elsewhere classified (principal); R60.9 Edema, unspecified
CPT/HCPCS: 36415; 80048; 83735

== ENCOUNTER → 2024-07-25 05:00 | Outpatient (REF) | payer MEDICARE, MEDICAID, SELFPAY ==
[2024-07-25 09:44] LABS: Anion Gap 4 (5-15); BUN 26 mg/dL (7-18); BUN/Creat Ratio 26.7 RATIO (10-20); Calcium,Total 9.1 mg/dL (8.5-10.1); Chloride 103 mmol/L (98-107); Creatinine, Serum 0.97 mg/dL (0.55-1.02); EST Glomerular Filtration Rate 58 mL/min (>60); Est Glom Filt Rate - Afr Amer 71 mL/min (>60); Glucose 120 mg/dL (74-106); Magnesium 2.2 mg/dL (1.6-2.6); Potassium 3.9 mmol/L (3.5-5.1); Sodium Level 138 mmol/L (136-145)
== END ==
LOC: OLS.SWAL 05:00
PROVIDERS: PCP Family Medicine; Visit Provider Internal Medicine
DX: I89.0 Lymphedema, not elsewhere classified (principal); R60.9 Edema, unspecified
CPT/HCPCS: 36415; 80048; 83735

== ENCOUNTER → 2024-07-31 | Outpatient (CLI) | payer MEDICARE, MEDICAID, SELFPAY ==
--- NOTE | 2024-07-31 17:04 | RAD_ITS ---
PROCEDURE: CERVICAL SPINE 2 VIEWS REASON FOR EXAM: Spondylosis. TECHNIQUE: 2 views of the cervical spine. COMPARISON: None. FINDINGS: There is mild chronic loss of the cervical vertebral body heights. There is reversal of the cervical lordosis. There is mild anterolisthesis of C2-C3, C3-C4, and C4-C5. There is mild retrolisthesis of C5- C6. Multilevel disc space narrowing with endplate spurring is identified and greatest at C5-C6. Prevertebral soft tissues are unremarkable. No acute fracture or subluxation is identified. Atlantodental interval is intact. RAD/Cerv Spine 2 or 3 Views IMPRESSION: 1. No acute cervical spine fracture. 2. Multilevel degenerative changes greatest at C5-C6. 3. Reversal of the cervical lordosis. Reading Location: [facility]
--- NOTE | 2024-07-31 17:04 | RAD_ITS ---
PROCEDURE: Right shoulder radiographs REASON FOR EXAM: Pain TECHNIQUE: Five views of the right shoulder COMPARISON: None. FINDINGS: See impression RAD/Shoulder min 2 Views IMPRESSION: Limited exam due to patient immobility. Negative for acute displaced fracture or dislocation. Probable severe glenohumeral joint osteoarthritis. Acromioclavicular joint is intact. Reading Location: [facility]
--- NOTE | 2024-07-31 17:10 | RAD_ITS ---
PROCEDURE: Left shoulder radiographs REASON FOR EXAM: Pain TECHNIQUE: Four views of the left shoulder COMPARISON: None FINDINGS: See impression RAD/Shoulder min 2 Views IMPRESSION: Chronic fracture of the humeral neck with lateral plate/screw fixation hardware in place. Severe glenohumeral joint osteoarthritis. Negative for acute displaced fracture or dislocation. Acromio clavicular joint is intact. Reading Location: [facility]
== END | disposition home or self-care (01) ==
LOC: RAD 17:03
PROVIDERS: PCP Internal Medicine; Referring Provider Anesthesiology Pain Medicine; Visit Provider Anesthesiology Pain Medicine
DX: M47.812 Spondylosis without myelopathy or radiculopathy, cervical region (principal)
CPT/HCPCS: 72040; 73030

== ENCOUNTER → 2024-08-06 16:00 | Outpatient (REF) | payer MEDICARE, MEDICAID, SELFPAY ==
[2024-08-07 07:28] LABS: Mucous, Urine 0 SEEN /hpf (<or=2+)
[2024-08-07 07:43] LABS: Color, Urine Yellow (Yellow); Glucose, Dipstick Normal (Normal); Ketone-Dipstick Negative (Negative); Leukocyte Esterase-Dipstick 500 /ul (Negative); Nitrite-Dipstick Positive (Negative); Occult Blood-Urine Negative /ul (Negative); Protein-Dipstick Negative (Negative); Urine Bilirubin Dipstick Negative (Negative); Urine Clarity Cloudy (Clear); Urine Urobilinogen Normal (Normal)
[2024-08-07 07:51] LABS: Bacteria 4+ /hpf (None Seen); Red Blood Cells-Urine 0-5 SEEN /hpf (0-5); Squamous Epithelial Cells - UA 0-5 SEEN /hpf (5-10); White Blood Cells 10-25 SEEN /hpf (0-5)
== END ==
LOC: OLS.SWAL 16:00
PROVIDERS: PCP Internal Medicine; Visit Provider Internal Medicine
DX: N39.0 Urinary tract infection, site not specified (principal)
CPT/HCPCS: 81001; 87086; 87088; 87186

== ENCOUNTER → 2024-08-08 08:05 | Outpatient (REF) | payer MEDICARE, MEDICAID, SELFPAY ==
[2024-08-08 10:04] LABS: Anion Gap 4 (5-15); BUN 34 mg/dL (7-18); BUN/Creat Ratio 27.6 RATIO (10-20); Calcium,Total 8.6 mg/dL (8.5-10.1); Chloride 103 mmol/L (98-107); Creatinine, Serum 1.23 mg/dL (0.55-1.02); EST Glomerular Filtration Rate 45 mL/min (>60); Est Glom Filt Rate - Afr Amer 54 mL/min (>60); Glucose 192 mg/dL (74-106); Magnesium 2.2 mg/dL (1.6-2.6); Potassium 4.1 mmol/L (3.5-5.1); Sodium Level 138 mmol/L (136-145)
== END ==
LOC: OLS.SW 08:05
PROVIDERS: PCP Internal Medicine; Visit Provider Internal Medicine
DX: I89.0 Lymphedema, not elsewhere classified (principal); R60.9 Edema, unspecified
CPT/HCPCS: 36415; 80048; 83735

== ENCOUNTER → 2024-08-22 | Outpatient (REF) | payer MEDICARE, MEDICAID, SELFPAY ==
[2024-08-22 09:05] LABS: Anion Gap 11 (5-15); BUN 25 mg/dL (4-19); BUN/Creat Ratio 21.6 RATIO (10-20); Calcium,Total 8.8 mg/dL (7.6-11.0); Carbon Dioxide 24.4 mmol/L (21.0-32.0); Chloride 103 mmol/L (98-108); Creatinine, Serum 1.14 mg/dL (0.70-1.20); EST Glomerular Filtration Rate 49 (>60); Glucose 104 mg/dL (70-99); Magnesium 2.3 mg/dL (1.5-2.2); Potassium 4.1 mmol/L (3.3-5.1); Sodium Level 138 mmol/L (133-145)
== END ==
LOC: OLS.SWAL 07:10
PROVIDERS: PCP Internal Medicine; Referring Provider Internal Medicine; Visit Provider Internal Medicine
DX: E11.9 Type 2 diabetes mellitus without complications (principal); I10 Essential (primary) hypertension
CPT/HCPCS: 36415; 80048; 83735

== ENCOUNTER → 2024-09-05 | Outpatient (REF) | payer MEDICARE, MEDICAID, SELFPAY ==
[2024-09-06 08:31] LABS: Mucous, Urine 0 SEEN /hpf (<or=2+)
[2024-09-06 08:50] LABS: Color, Urine Yellow (Yellow); Glucose, Dipstick Normal (Normal); Ketone-Dipstick Negative (Negative); Leukocyte Esterase-Dipstick 500 /ul (Negative); Nitrite-Dipstick Positive (Negative); Occult Blood-Urine 10 /ul (Negative); Protein-Dipstick 30 mg/dl (Negative); Specific Gravity, Urine 1.015 (1.002-1.030); Urine Bilirubin Dipstick Negative (Negative); Urine Clarity Sl. Cloudy (Clear); Urine Urobilinogen Normal (Normal); Urine pH 6.5 (5.0 - 8.0)
[2024-09-06 09:19] LABS: White Blood Cells 25-50 SEEN /hpf (0-5)
[2024-09-06 09:20] LABS: Red Blood Cells-Urine 0-5 SEEN /hpf (0-5); Squamous Epithelial Cells - UA 5-10 SEEN /hpf (5-10)
[2024-09-06 09:21] LABS: Bacteria 3+ /hpf (None Seen)
[2024-09-06 09:25] LABS: Transitional Epithelial - Ur 0-5 SEEN /hpf (0-5)
== END ==
LOC: OLS.SWAL 08:00
PROVIDERS: PCP Internal Medicine; Visit Provider Internal Medicine
DX: R30.0 Dysuria (principal)
CPT/HCPCS: 81001; 87077; 87086; 87088; 87186

== ENCOUNTER → 2024-09-19 | Outpatient (REF) | payer MEDICARE, MEDICAID, SELFPAY ==
[2024-09-19 08:46] LABS: Anion Gap 9 (5-15); BUN 34 mg/dL (4-19); Calcium,Total 8.6 mg/dL (7.6-11.0); Carbon Dioxide 27.2 mmol/L (21.0-32.0); Chloride 103 mmol/L (98-108); Creatinine, Serum 1.13 mg/dL (0.70-1.20); EST Glomerular Filtration Rate 49 (>60); Glucose 165 mg/dL (70-99); Magnesium 2.2 mg/dL (1.5-2.2); Sodium Level 140 mmol/L (133-145)
== END ==
LOC: OLS.SWAL 05:00
PROVIDERS: PCP Internal Medicine; Visit Provider Internal Medicine
DX: I89.0 Lymphedema, not elsewhere classified (principal)
CPT/HCPCS: 36415; 80048; 83735

== ENCOUNTER → 2024-09-23 08:20 | Outpatient (REF) | payer MEDICARE, MEDICAID, SELFPAY ==
[2024-09-23 09:57] LABS: Mucous, Urine 0 SEEN /hpf (<or=2+); Red Blood Cells-Urine 0 SEEN /hpf (0-5)
[2024-09-23 10:27] LABS: Color, Urine Yellow (Yellow); Glucose, Dipstick Normal (Normal); Ketone-Dipstick Negative (Negative); Leukocyte Esterase-Dipstick 500 /ul (Negative); Nitrite-Dipstick Negative (Negative); Occult Blood-Urine 25 /ul (Negative); Protein-Dipstick 30 mg/dl (Negative); Specific Gravity, Urine 1.015 (1.002-1.030); Urine Bilirubin Dipstick Negative (Negative); Urine Clarity Sl. Cloudy (Clear); Urine Urobilinogen Normal (Normal)
[2024-09-23 10:30] LABS: Bacteria RARE /hpf (None Seen); Squamous Epithelial Cells - UA 0-5 SEEN /hpf (5-10); White Blood Cells 50-100 SEEN /hpf (0-5)
== END ==
LOC: OLS.SWAL 08:20
PROVIDERS: PCP Internal Medicine; Visit Provider Internal Medicine
DX: N39.0 Urinary tract infection, site not specified (principal)
CPT/HCPCS: 81001; 87077; 87086; 87088; 87186

== ENCOUNTER → 2024-10-03 | Outpatient (REF) | payer MEDICARE, MEDICAID, SELFPAY ==
[2024-10-03 09:15] LABS: Hemoglobin A1c 5.9 % (<=5.6)
[2024-10-03 09:19] LABS: Anion Gap 10 (5-15); BUN 26 mg/dL (4-19); BUN/Creat Ratio 24.4 RATIO (10-20); Calcium,Total 8.7 mg/dL (7.6-11.0); Carbon Dioxide 27.9 mmol/L (21.0-32.0); Chloride 102 mmol/L (98-108); Creatinine, Serum 1.08 mg/dL (0.70-1.20); EST Glomerular Filtration Rate 52 (>60); Glucose 179 mg/dL (70-99); Magnesium 2.2 mg/dL (1.5-2.2); Potassium 3.8 mmol/L (3.3-5.1); Sodium Level 139 mmol/L (133-145)
== END ==
LOC: OLS.SWAL 04:00
PROVIDERS: PCP Internal Medicine; Referring Provider Internal Medicine; Visit Provider Internal Medicine
DX: E11.42 Type 2 diabetes mellitus with diabetic polyneuropathy (principal); I89.0 Lymphedema, not elsewhere classified; R60.9 Edema, unspecified
CPT/HCPCS: 36415; 80048; 83036; 83735

== ENCOUNTER → 2024-10-17 | Outpatient (REF) | payer MEDICARE, MEDICAID, SELFPAY ==
[2024-10-17 09:32] LABS: Anion Gap 9 (5-15); BUN 30 mg/dL (4-19); BUN/Creat Ratio 28.5 RATIO (10-20); Calcium,Total 8.7 mg/dL (7.6-11.0); Carbon Dioxide 28.9 mmol/L (21.0-32.0); Chloride 103 mmol/L (98-108); Creatinine, Serum 1.04 mg/dL (0.70-1.20); EST Glomerular Filtration Rate 54 (>60); Glucose 106 mg/dL (70-99); Magnesium 2.3 mg/dL (1.5-2.2); Potassium 3.8 mmol/L (3.3-5.1); Sodium Level 140 mmol/L (133-145)
== END ==
LOC: OLS.SWAL 05:00
PROVIDERS: PCP Internal Medicine; Visit Provider Internal Medicine
DX: I89.0 Lymphedema, not elsewhere classified (principal); R60.9 Edema, unspecified
CPT/HCPCS: 36415; 80048; 83735

== ENCOUNTER → 2024-11-08 | Outpatient (REF) | payer MEDICARE, MEDICAID, SELFPAY ==
[2024-11-08 07:54] LABS: Hematocrit 36.6 % (37-47); Hemoglobin 11.6 g/dL (12.0-15.0); Mean Corp Hgb Conc 31.7 g/dL (32-36); Mean Corpuscular Hgb 30.9 pg (27.0-32.0); Mean Corpuscular Volume 97.6 fL (81-99); Mean Platelet Vol. 10.2 fl (6.2-12.0); Platelet Count 228 K/mm3 (150-450); RBC Distribution Width CV 12.8 % (11.6-14.6); Red Blood Count 3.75 M/mm3 (4.2-5.4); White Blood Count 8.4 K/mm3 (4.4-11.0)
[2024-11-08 08:03] LABS: AST(SGOT) 81 U/L (<=31); Alanine Aminotransfer ALT/SGPT 87 U/L (<=34); Albumin, Serum 3.3 g/dL (3.4-4.8); Alkaline Phosphatase 110 U/L (35-104); Anion Gap 10 (5-15); BUN 26 mg/dL (4-19); BUN/Creat Ratio 24.4 RATIO (10-20); Bilirubin, Direct 0.22 mg/dL (0.00-0.30); Calcium,Total 8.8 mg/dL (7.6-11.0); Carbon Dioxide 28.3 mmol/L (21.0-32.0); Chloride 101 mmol/L (98-108); Creatinine, Serum 1.08 mg/dL (0.70-1.20); EST Glomerular Filtration Rate 52 (>60); Globulin 2.9 g/dL (2.2-4.2); Glucose 104 mg/dL (70-99); Magnesium 1.8 mg/dL (1.5-2.2); Potassium 3.6 mmol/L (3.3-5.1); Protein, Total 6.3 g/dL (5.9-8.4); Sodium Level 138 mmol/L (133-145); Total Bilirubin 0.46 mg/dL (0.00-1.30)
== END ==
LOC: OLS.SWAL 05:00
PROVIDERS: PCP Internal Medicine; Visit Provider Internal Medicine
DX: E11.42 Type 2 diabetes mellitus with diabetic polyneuropathy (principal); R60.9 Edema, unspecified
CPT/HCPCS: 36415; 80048; 80076; 83735; 85027

== ENCOUNTER → 2024-11-14 | Outpatient (REF) | payer MEDICARE, MEDICAID, SELFPAY ==
[2024-11-14 08:26] LABS: Anion Gap 9 (5-15); BUN 22 mg/dL (4-19); BUN/Creat Ratio 21.3 RATIO (10-20); Calcium,Total 8.6 mg/dL (7.6-11.0); Carbon Dioxide 29.7 mmol/L (21.0-32.0); Chloride 101 mmol/L (98-108); Creatinine, Serum 1.04 mg/dL (0.70-1.20); EST Glomerular Filtration Rate 54 (>60); Glucose 179 mg/dL (70-99); Magnesium 2.1 mg/dL (1.5-2.2); Potassium 4.1 mmol/L (3.3-5.1); Sodium Level 140 mmol/L (133-145)
== END ==
LOC: OLS.SWAL 06:50
PROVIDERS: PCP Internal Medicine; Visit Provider Internal Medicine
DX: I10 Essential (primary) hypertension (principal); E78.5 Hyperlipidemia, unspecified; E03.9 Hypothyroidism, unspecified
CPT/HCPCS: 36415; 80048; 83735

== ENCOUNTER → 2024-11-28 | Outpatient (REF) | payer MEDICARE, MEDICAID, SELFPAY ==
--- OUTSIDE RECORDS SUMMARY | 2024-11-28 04:14 | XMS RPT_ITS | CCD ---
Author Organization [facility] Care Team Providers Care Byproducts Maker Name Role Phone Shiv Lopez Unavailable Unavailable PROVIDER, UNKNOWN Unavailable Unavailable Shiv Lopez Unavailable Unavailable Shiv Lopez Primary Care Provider Shiv Lopez Primary Care Provider Shiv Lopez Primary Care Provider [phone] Shiv Lopez MD Primary Care Provider Shiv Lopez MD Primary Care Provider Shiv Lopez MD Primary Care Provider Shiv Lopez MD Primary Care Provider GABRIELLE FINCH Admitting Unavailable JOHN, [facility] Primary Care Unavailable CHARMAINE LOVELL Consulting Unavailable GABRIELLE FINCH Attending Unavailable ADAM HOLT Consulting Unavailable JOHN, SHIV Primary Care Unavailable KATIA GRANADOS Attending Unavailable JOHN, SHIV Primary Care Unavailable KATIA GRANADOS Attending Unavailable LENARD MAGALLANES Attending Unavailable JOHN, SHIV Primary Care Unavailable John TOWNSEND, Dr. Chaney Primary Care Provider [phone] Dr. Melissa Reed MD Attending Provider Unavaildiony Reed MD, Dr. Torres Primary Care Provider Doris Argueta MD, Dr. Betancur Attending Provider Dr. Gypsy Argueta MD Referring Provider Dr. Melissa Reed MD Referring Provider Unavaildiony Lopez MD, Dr. Chaney Primary Care Provider Brianna TOWNSEND, Dr. Torres Attending Provider UnavailDr. Shiv Curran MD Primary Care Provider [phone] Brianna TOWNSEND, Dr. Torres Attending Provider Unavaila ble Gudla OLS, Melissa Attending Unavailable Gudla, Melissa Primary Care Unavailable John, Shiv Primary Care Unavailable Gudla OLS, Melissa Attending Unavailable Gudla, Melissa Primary Care Unavailable Gudla OLS, Melissa Attending Unavailable Gudla, Melissa Primary Care Unavailable Gudla OLS, Melissa Attending Unavailable John, Shiv Primary Care Unavailable Gudla OLS, Melissa Attending Unavailable John, Shiv Primary Care Unavailable Gudla OLS, Melissa Attending Unavailable John, Shiv Primary Care Unavailable Gudla OLS, Melissa Attending Unavailable John, Shiv Primary Care Unavailable Gudla OLS, Melissa Attending Unavailable John, Shiv Primary Care Unavailable Gudla OLS, Melissa Attending Unavailable Gudla, Melissa Primary Care Unavailable Gudla OLS, Melissa Attending Unavailable Gudla, Melissa Primary Care Unavailable Basali, Ayman Referring Unavailable Basali, Ayman Attending Unavailable John, Shiv Primary Care Unavailable Gudla OLS, Melissa Attending Unavailable Gudla OLS, Melissa Referring Unavailable John, Shiv Primary Care Unavailable Gudla OLS, Melissa Attending Unavailable John, Shiv Primary Care Unavailable Gudla OLS, Melissa Attending Unavailable John, Shiv Primary Care Unavailable Gudla OLS, Melissa Attending Unavailable John, Shiv Primary Care Unavailable Gudla OLS, Melissa Referring Unavailable Gudla OLS, Melissa Attending Unavailable John, Shiv Primary Care Unavailable Gudla OLS, Melissa Attending Unavailable John, Shiv Primary Care Unavailable Gudla OLS, Melissa Attending Unavailable John, Shiv Primary Care Unavailable Gudla OLS, Melissa Attending Unavailable John, Shiv Primary Care Unavailable Gudla OLS, Melissa Attending Unavailable John, Shiv Primary Care Unavailable Gudla OLS, Melissa Attending Unavailable John, Shiv Primary Care Unavailable Gudla OLS, Melissa Attending Unavailable Gudla OLS, Melissa Attending Unavailable John, Shiv Primary Care Unavailable [facility], Shiv Primary Care Unavailable Gudla OLS, Melissa Attending Unavailable [facility] Attending Unavailable John, Shiv Primary Care Unavailable Gudla, Melissa Primary Care Unavailable Gudla OLS, Melissa Attending Unavailable Gudla OLS, Melissa Attending Unavailable Gudla OLS, Melissa Referring Unavailable Gudla, Melissa Primary Care Unavailable Gudla OLS, Melissa Attending Unavailable Gudla, Melissa Primary Care Unavailable Gudla OLS, Melissa Attending Unavailable Gudla, Melissa Primary Care Unavailable Gudla OLS, Melissa Attending Unavailable Gudla, Melissa Primary Care Unavailable [facility], Shiv Primary Care Unavailable Gudla OLS, Melissa Attending Unavailable Gudla OLS, Melissa Referring Unavailable Gudla, Melissa Primary Care Unavailable Gudla OLS, Melissa Attending Unavailable Allergies Allergy Classification Reported Allergen(s) Allergy Type Date of Onset Reaction(s) Facility Opioid Agonists (2 sources) Codeine Drug Allergy 5 Itching [facility] (20 sources) Codeine Drug Allergy 5 Itching [place], [place] (20 sources) Oxycodone-Aspiri n Propensity to adverse reactions to drug 5 [place], [place] (20 sources) oxyCODONE Drug Allergy 1 Hives [facility] (20 sources) Vancomycin Drug Allergy 1 Rash [facility] (20 sources) Other Allergy to substance 3 [facility] (14 sources) Aspirin Drug Allergy 1 Other [facility] (2 sources) Aluminum aspirin Drug Allergy 1 [facility] (1 source) Aspirin Drug Allergy 1 [facility] Repository (1 source) oxyCODONE Drug Allergy 1 [facility] Repository (1 source) Vancomycin Drug Allergy 1 [facility] Repository Medications Current Medications Medication Drug Class(es) Dates Sig (Normalized) Sig (Original) acetaminophen 500 mg oral tablet (20 sources) Start: 03-15-2023 take 2 tablets by mouth every six hours as needed for pain Acetaminophen 500 mg Tablet Active 1000 mg PO EVERY 6 HOURS as needed for Pain - 0 March 15, 2023 12:00am Start: 03-15-2023 take 1000 mg by mout h every six hours Acetaminophen Active 1000 MG PO EVERY 6 HOURS 0 March 15, 2023 12:00am Start: 03-03-2023 End: 03-15-2023 take 2 tablets by mouth every six hours as needed for pain Acetaminophen (Tylenol) 325 mg tablet Discontinued 650 mg PO EVERY 6 HOURS as needed for Pain 1-3 March 03, 2023 12:00am March 15, 2023 7:29pm Start: 02-28-2023 End: 03-03-2023 take 1 tablet by mouth every six hours as needed for pain and fever acetaminophen (Tylenol) tablet 650 mg Start: 12-07-2022 End: 12-17-2022 take 2 tablets by mouth every six hours as needed for pain and fever acetaminophen (Tylenol) 325 MG tablet Take 2 tablets (650 mg) by mouth every 6 hours as needed for mild pain (1-3) or fever (For temp greater than 100.4 F (38 C)) for up to 10 days. 30 tablet 0 12/07/2022 12/17/2022 Active Start: 12-05-2022 End: 12-07-2022 take 1 tablet by mouth every six hours as needed for pain and fever acetaminophen (Tylenol) tablet 650 mg atorvastatin 20 mg oral tablet (20 sources) HMG-CoA Reductase Inhibitor Start: 03-15-2023 take 1 tablet by mouth at bedtime Atorvastatin 20 mg Tablet Active 20 mg PO AT BEDTIME 0 March 15, 2023 12:00am Start: 11-27-2019 End: 10-14-2020 atorvastatin (LIPITOR) 80 MG tablet TAKE 1 TABLET EVERY DAY 90 tablet 1 11/27/2019 10/14/2020 Discontinued (LIST CLEANUP) Start: 11-13-2018 take 1 tablet by goran th once daily atorvastatin (LIPITOR) 80 MG tablet Take 1 tablet by mouth daily 90 tablet 1 11/13/2018 Active End: 06-30-2022 atorvastatin (Lipitor) 80 MG tablet Every 24 hours. 0 06/30/2022 Discontinued (Alternate therapy) baclofen 10 mg oral tablet (20 sources) gamma-Aminobutyric Acid-ergic Agonist Start: 02-14-2023 End: 03-03-2023 take 1 tablet by mouth once daily Baclofen 10 mg tablet Active 10 mg PO DAILY March 03, 2023 12:00am Start: 10-04-2022 End: 01-12-2023 take 1 tablet by mouth once daily baclofen (Lioresal) 10 MG tablet Indications: Chronic left shoulder pain Take 1 tablet (10 mg) by mouth daily. 30 tablet 0 01/13/2023 Active Start: 07-19-2022 take 1 tablet by goran th once daily baclofen (Lioresal) 10 MG tablet Take 1 tablet (10 mg) by mouth daily. 30 tablet 0 07/19/2022 Active Start: 09-09-2021 End: 06-30-2022 take 1 tablet by mouth in the morning baclofen (Lioresal) 10 MG tablet Take 10 mg by mouth in the morning. 0 09/09/2021 06/30/2022 Discontinued (Therapy completed) Start: 09-09-2021 take 1 tablet by goran th three times daily as needed for muscle spasms baclofen (LIORESAL) 10 MG tablet Take 1 tablet by mouth 3 times daily as needed (muscle spasms) 30 tablet 0 09/09/2021 Active Start: 03-02-2020 End: 10-14-2020 take 1 tablet by mouth three times daily as needed for muscle spasms baclofen (LIORESAL) 10 MG tablet Take 1 tablet by mouth 3 times daily as needed (muscle spasms) 30 tablet 0 03/02/2020 10/14/2020 Discontinued (LIST CLEANUP) Blood Glucose Calibration (GLUCOSE CONTROL) SOLN (2 sources) Start: 12-22-2020 Blood Glucose Calibration (GLUCOSE CONTROL) SOLN Please dispense true metrix level 1 control solution, use as directed 1 each 0 12/22/2020 Active Blood Glucose Monitoring Suppl (TRUE METRIX AIR GLUCOSE METER) w/Device KIT (1 source) Start: 07-25-2018 Blood Glucose Monitoring Suppl (TRUE METRIX AIR GLUCOSE METER) w/Device KIT Indications: Type 2 diabetes mellitus with hyperglycemia, without long-term current use of insulin (HCC) 1 each by Does not apply route 4 times daily 1 kit 0 07/25/2018 Active Blood Pressure KIT (1 source) Start: 05-25-2018 Blood Pressure KIT Indications: Renovascular hypertension 1 each by Does not apply route daily 1 kit 0 05/25/2018 Active brompheniramine maleate 0.4 mg/ml / dextromethorphan hydrobromide 2 mg/ml / pseudoephedrine hydrochloride 6 mg/ml oral solution (1 source) alpha-Adrenergic Agonist, Uncompetitive H-lbceft-Y-aspartat e Receptor Antagonist, Sigma-1 Agonist Start: 09-10-2018 take 10 mL by mouth four times daily as needed for cough brompheniramine-p seudoephedrine-DM 2-30-10 MG/5ML syrup Take 10 mLs by mouth 4 times daily as needed for Cough 240 mL 0 09/10/2018 Active busPIRone hydrochloride 5 mg oral tablet (18 sources) Start: 03-01-2023 End: 04-02-2023 take 1 tablet by mouth twice daily as needed for anxiety Buspirone 5 mg tablet Active 5 mg PO TWICE A DAY as needed for anxiety March 03, 2023 12:00am cefdinir 300 mg oral capsule (1 source) Cephalosporin Antibacterial Start: 01-23-2019 End: 02-02-2019 take 1 capsule by mouth every twelve hours cefdinir (OMNICEF) 300 MG capsule Take 1 capsule by mouth every 12 hours for 10 days 20 capsule 0 01/23/2019 02/02/2019 Active celecoxib 200 mg oral capsule (1 source) Nonsteroidal Anti-inflammatory Drug Start: 07-27-2017 take 1 capsule by mouth twice daily celecoxib (CELEBREX) 200 MG capsule Take 1 capsule by mouth 2 times daily 60 capsule 0 07/27/2017 Active cephalexin 500 mg oral capsule (14 sources) Cephalosporin Antibacterial Start: 03-15-2023 take 1 capsule by mouth every six hours Cephalexin 500 mg Capsule Active 500 mg PO EVERY 6 HOURS 0 4 March 15, 2023 12:00am clindamycin 300 mg oral capsule (1 source) Lincosamide Antibacterial take 1 capsule by mouth three times daily clindamycin (CLEOCIN) 300 MG capsule Take 300 mg by mouth 3 times daily 0 Active docusate sodium 50 mg / sennosides, custodial 8.6 mg oral tablet (18 sources) Start: 03-15-2023 Sennosides-Docusa te Sodium (Stool Softener-Stimulan t Laxat) 8.6-50 mg Tablet Active 1 {tbl} PO TWICE A DAY 0 March 15, 2023 12:00am Start: 12-13-2022 End: 02-11-2023 take 1 tablet by mouth once daily senna-docusate sodium (Senokot-S) 8.6-50 MG tablet Indications: Constipation, unspecified constipation type Take 1 tablet by mouth daily. 30 tablet 1 12/13/2022 02/11/2023 Active doxycycline monohydrate 100 mg oral capsule (14 sources) Tetracycline-class Drug Start: 03-17-2023 take 1 capsule by mouth twice daily Doxycycline Monohydrate 100 mg Capsule Active 100 mg PO TWICE A DAY 0 March 17, 2023 12:00am 0.5 ml dulaglutide 1.5 mg/ml auto-injector (1 source) GLP-1 Receptor Agonist Start: 01-29-2018 Dulaglutide 0.75 MG/0.5ML SOPN Indications: Type 2 diabetes mellitus without complication, without long-term current use of insulin (HCC) Inject 0.75 mg into the skin once a week 4 pen 2 01/29/2018 Active ergocalciferol 1.25 mg oral capsule (20 sources) Provitamin D2 Compound Start: 06-14-2022 End: 03-03-2023 take 1 capsule by mouth every week ergocalciferol (Vitamin D-2) 1.25 MG (16871 UT) capsule Indications: Vitamin D deficiency Take 1 capsule (1.25 mg) by mouth 1 (one) time per week. 90 capsule 1 07/18/2022 Active Start: 06-10-2021 take 1 capsule by mo ut every week vitamin D (ERGOCALCIFEROL) 1.25 MG (45357 UT) CAPS capsule Take 1 capsule by mouth once a week 12 capsule 1 06/10/2021 Active Start: 12-23-2020 Ergocalciferol (Vitamin D2) (Vitamin D2) 1,250 mcg (50,000 unit) capsule Active 1250 ug PO EVERY WEEK December 23, 2020 12:00am Start: 01-16-2020 take 1 capsule by mo uth every week vitamin D (ERGOCALCIFEROL) 1.25 MG (85924 UT) CAPS capsule Take 1 capsule by mouth once a week 12 capsule 1 01/16/2020 Active Start: 10-01-2018 ergocalciferol (DRISDOL) 62980 units capsule 1 capsule every week 8 capsule 1 10/01/2018 Active furosemide 40 mg oral tablet (14 sources) Loop Diuretic Start: 03-15-2023 take 1 tablet by mouth once daily Furosemide 40 mg Tablet Active 40 mg PO DAILY 0 4 March 15, 2023 12:00am gentamicin 1 mg/ml topical cream (1 source) gentamicin (GARAMYCIN) 0.1 % cream Apply topically daily Apply topically 3 times daily. 0 Active Handicap Placard MISC (10 sources) Start: 03-01-[address] MISC Duration: 5 years, 2025 1 each 0 03/01/2021 Active Start: 08-12-[address] MISC Duration: 5 years, 2020 1 each 0 08/12/2015 Active hydrALAZINE hydrochloride 25 mg oral tablet (19 sources) Arteriolar Vasodilator Start: 03-03-2023 End: 05-02-2023 take 1 tablet by mouth three times daily Hydralazine 25 mg tablet Active 25 mg PO THREE TIMES A DAY March 03, 2023 12:00am Start: 12-05-2022 End: 12-07-2022 take 10 mg intravenously every six hours as needed for hypertension 10 mg, IntraVENous, Every 6 hours PRN, high blood pressure, for systolic BP>160, Starting on Mon12/05/22 at 1953 hydrOXYzine pamoate 25 mg oral capsule (20 sources) Antihistamine Start: 03-15-2023 Hydroxyzine Pa moate 25 mg Capsule Active 50 mg PO 3 TIMES DAILY NEEDED as needed for ITCHING/ANXIETY 0 March 15, 2023 12:00am Start: 03-15-2023 take 50 mg by mouth three times daily as needed Hydroxyzine Pamoate Active 50 MG PO 3 TIMES DAILY NEEDED 0 March 15, 2023 12:00am Start: 02-28-2022 End: 09-11-2022 take 1 tablet by mouth every eight hours as needed for anxiety hydrOXYzine HCl (Atarax) 25 MG tablet Indications: Moderate episode of recurrent major depressive disorder (HCC) Take 1 tablet (25 mg) by mouth every 8 hours as needed for anxiety. 90 tablet 12/08/2022 Active Start: 07-26-2021 take 1 tablet by goran th every eight hours as needed hydrOXYzine (ATARAX) 25 MG tablet Take 1 tablet by mouth every 8 hours as needed for Itching 60 tablet 0 07/26/2021 Active Start: 12-23-2020 End: 03-15-2023 take 1 tablet by mouth three times daily as needed for anxiety Hydroxyzine Hcl 25 mg tablet Discontinued 25 mg PO THREE TIMES A DAY as needed for anxiety December 23, 2020 12:00am March 15, 2023 7:30pm Start: 10-01-2020 take 1 tablet by goran th every eight hours as needed hydrOXYzine (ATARAX) 25 MG tablet Take 1 tablet by mouth every 8 hours as needed for Itching 60 tablet 0 10/01/2020 Active Start: 2020 take 1 tablet by goran th every eight hours as needed hydrOXYzine (ATARAX) 25 MG tablet Take 1 tablet by mouth every 8 hours as needed for Itching 60 tablet 0 2020 Active Insulin Aspart Prot & Aspart (NOVOLOG MIX 70/30 FLEXPEN SC) (7 sources) Insulin Aspart P rot & Aspart (NOVOLOG MIX 70/30 FLEXPEN SC) Inject 8 Units into the skin 3 times daily 0 Active insulin glargine 100 unt/ml injectable solution (20 sources) Insulin Analog Start: 03-04-2023 End: 03-03-2024 insulin glargine (Lantus) 100 UNIT/ML injection Inject 19 Units under the skin every morning. Do not start before March 04, 2023. 10 mL 12 03/04/2023 03/03/2024 Active Start: 03-03-2023 Insulin Glargi ne Active 19 UNIT SC DAILY March 02, 2023 11:00pm Start: 03-03-2023 Insulin Glargi ne Active 19 UNIT SC DAILY March 03, 2023 12:00am Start: 03-01-2023 End: 03-03-2023 insulin glargine (Lantus) in jection 19 Units Start: 04-29-2020 End: 08-03-2020 BASAGLAR KWIKPEN 100 UNIT/ML injection pen INJECT 22 UNITS INTO THE SKIN 2 TIMES DAILY 5 pen 1 04/29/2020 08/03/2020 Discontinued (REORDER) Start: 04-29-2020 End: 08-03-2020 BASAGLAR KWIKPEN 100 UNIT/ML injection pen INJECT 22 UNITS INTO THE SKIN 2 TIMES DAILY 5 pen 1 04/29/2020 08/03/2020 Discontinued (REORDER) Start: 03-14-2018 insulin glargi ne (LANTUS SOLOSTAR) 100 UNIT/ML injection pen Indications: Type 2 diabetes mellitus without complication, without long-term current use of insulin (HCC) Inject 22 Units into the skin every morning 5 pen 3 03/14/2018 Active Insulin Glargine 100 unit/mL solution (4 sources) Start: 03-03-2023 Insulin Glargi ne 100 unit/mL solution Active 19 U SC DAILY March 03, 2023 12:00am 3 ml insulin lispro 100 unt/ml pen injector (20 sources) Insulin Analog Start: 03-03-2023 Insulin Lispro (Humalog Kwikpen Insulin) 100 unit/mL insulin pen Active 10 U SC THREE TIMES A DAY March 03, 2023 12:00am Start: 03-02-2023 End: 03-02-2024 Insulin Lispro (Humalog) 100 UNIT/ML solution injection Inject 10 Units under the skin in the morning and 10 Units at noon and 10 Units in the evening. Inject with meals. 10 mL 12 03/03/2023 03/02/2024 Active Start: 03-01-2023 End: 03-02-2023 Insulin Lispro (Humalog) inj ection 6 Units Start: 02-28-2023 End: 03-01-2023 Insulin Lispro (Humalog) inj ection 16 Units Start: 02-28-2023 End: 03-02-2024 Insulin Lispro (Humalog) 100 UNIT/ML solution injection Inject 0-12 Units under the skin 3 times daily (with meals). 10 mL 12 03/03/2023 03/02/2024 Active Start: 04-03-2018 insulin lispro (HUMALOG KWIKPEN) 200 UNIT/ML SOPN pen Indications: Type 2 diabetes mellitus with hyperglycemia, without long-term current use of insulin (HCC) 8 units with breakfast and dinner and 4 units with lunch. Plus sliding scale (max 50 units per day) 8 pen 1 04/03/2018 Active insulin, isophane (2 sources) Start: 01-03-2019 insulin NPH (H UMULIN N;NOVOLIN N) 100 UNIT/ML injection vial 12 units AM and 10 units PM 1 vial 3 01/03/2019 Active End: 06-30-2022 insulin NPH, Isophane, (Humu MAXIMINO N,NovoLIN N) 100 UNIT/ML injection as directed Subcutaneous 0 06/30/2022 Discontinued (Therapy completed) isopropyl alcohol 0.7 ml/ml medicated pad (10 sources) Start: 12-22-2020 Alcohol Swabs (ALCOHOL PREP) 70 % PADS Indications: Type 2 diabetes mellitus with hyperglycemia, without long-term current use of insulin (HCC) Apply 300 each topically 4 times daily 300 each 1 12/22/2020 Active Start: 01-01-2019 Alcohol Swabs (ALCOHOL PREP) 70 % PADS Indications: Type 2 diabetes mellitus with hyperglycemia, without long-term current use of insulin (HCC) Apply 300 each topically 4 times daily 300 each 1 01/01/2019 Active ammonium lactate 120 mg/ml topical lotion (14 sources) Start: 03-15-2023 Ammonium Lacta te 12 % Lotion Active 1 NMA TOPICAL TWICE A DAY 0 March 15, 2023 12:00am Please contact the information source for Protocol details. levothyroxine sodium 0.125 mg oral tablet (20 sources) l-Thyroxi ne Start: 03-03-2023 End: 05-03-2023 take 1 tablet by mouth once daily levothyroxine (Synthroid, Levoxyl) 125 MCG tablet Take 1 tablet (125 mcg) by mouth daily. Do not start before March 04, 2023. 30 tablet 1 03/04/2023 Active Start: 03-01-2023 End: 03-02-2023 take 150 ug by mouth once daily 150 mcg, Oral, Daily, First dose on Mon03/01/23 at 0600 Tube feeding (TF) interaction, obtain physician order to manage, recommend holding TF for 30 minutes before and after dose. Start: 12-05-2022 End: 12-07-2022 take 150 ug by mouth once daily 150 mcg, Oral, Daily, First dose on Mon12/05/22 at 1955 Tube feeding (TF) interaction, obtain physician order to manage, recommend holding TF for 30 minutes before and after dose. Start: 10-04-2022 End: 04-13-2023 take 1 tablet by mouth once daily levothyroxine (Synthroid, Levoxyl) 150 MCG tablet Indications: Acquired hypothyroidism Take 1 tablet (150 mcg) by mouth daily. 30 tablet 1 01/13/2023 03/03/2023 Discontinued (Stop taking at discharge) Start: 06-14-2022 End: 09-12-2022 take 1 tablet by mouth once daily levothyroxine (Synthroid, Levoxyl) 150 MCG tablet Indications: Acquired hypothyroidism Take 1 tablet (150 mcg) by mouth daily. 30 tablet 1 06/14/2022 09/12/2022 Active Start: 12-23-2020 Levothyroxine 112 mcg tablet Active 125 ug PO DAILY December 23, 2020 12:00am Start: 12-23-2020 take 125 ug by mouth once daily Levothyroxine Active 125 MCG PO DAILY December 23, 2020 12:00am Start: 12-18-2020 take 1 tablet by goran th once daily levothyroxine (SYNTHROID) 137 MCG tablet TAKE 1 TABLET BY MOUTH EVERY DAY 90 tablet 1 12/18/2020 Active Start: 06-29-2020 take 1 tablet by goran th once daily levothyroxine (SYNTHROID) 137 MCG tablet TAKE 1 TABLET BY MOUTH EVERY DAY 30 tablet 5 06/29/2020 Active Start: 11-13-2018 take 1 tablet by goran th once daily levothyroxine (SYNTHROID) 112 MCG tablet Indications: Acquired hypothyroidism Take 1 tablet by mouth Daily 90 tablet 1 11/13/2018 Active melatonin 3 mg oral capsule (19 sources) Start: 03-03-2023 take 1 capsule by mouth at bedtime Melatonin 3 mg capsule Active 3 mg PO AT BEDTIME March 03, 2023 12:00am Start: 03-01-2023 End: 03-03-2023 take 1 tablet by mouth once daily melatonin 3 MG tablet Take 1 tablet (3 mg) by mouth Nightly. 0 03/03/2023 Active Menthol / Zinc Oxide (14 sources) Start: 03-15-2023 Menthol-Zinc O xide (Calmoseptine) 0.44-20.6 % Ointment Active 1 NMA TOPICAL TWICE A DAY 0 March 15, 2023 12:00am Please contact the information source for Protocol details. Start: 03-15-2023 Menthol-Zinc O xide (Calmoseptine) 0.44-20.6 % Ointment Active 1 APPLIC TOPICAL TWICE A DAY 0 March 14, 2023 11:00pm Start: 03-15-2023 Menthol-Zinc O xide (Calmoseptine) 0.44-20.6 % Ointment Active 1 APPLIC TOPICAL TWICE A DAY 0 March 15, 2023 12:00am 24 hr mirabegron 25 mg extended release oral tablet (2 sources) beta3-Adrenergic Agonist Start: 05-06-2021 take 1 tablet by mouth once daily mirabegron (MYRBETRIQ) 25 MG TB24 Take 1 tablet by mouth daily 30 tablet 0 05/06/2021 Active nystatin 100 unt/mg topical powder (14 sources) Polyene Antifungal Start: 03-15-2023 Nystatin (Nyamyc) 100,000 unit/gram Powder Active 1 NMA TOPICAL TWICE A DAY 0 March 15, 2023 12:00am Please contact the information source for Protocol details. Start: 03-15-2023 Nystatin (Nyam yc) 100,000 unit/gram Powder Active 1 APPLIC TOPICAL TWICE A DAY 0 March 15, 2023 12:00am 24 hr oxybutynin chloride 10 mg extended release oral tablet (7 sources) Cholinergic Muscarinic Antagonist Start: 05-29-2020 take 1 tablet by mouth once daily oxybutynin (DITROPAN-XL) 10 MG extended release tablet Take 1 tablet by mouth daily 30 tablet 3 05/29/2020 Active PARoxetine hydrochloride 20 mg oral tablet (20 sources) Serotonin Reuptake Inhibitor Start: 12-27-2021 End: 03-03-2023 take 1 tablet by mouth once daily Paroxetine Hcl (Paxil) 20 mg tablet Active 20 mg PO DAILY March 03, 2023 12:00am Start: 07-23-2020 End: 01-29-2021 take 1 tablet by mouth once daily Paroxetine Hcl 20 mg tablet Discontinued 20 mg PO DAILY December 23, 2020 12:00am January 29, 2021 2:58pm Start: 11-13-2018 take 1 tablet by goran th once daily in the morning PARoxetine (PAXIL) 20 MG tablet Take 1 tablet by mouth every morning 90 tablet 0 11/13/2018 Active Petrolatum (14 sources) Start: 03-15-2023 Petrolatum 33% (Eucerin Eqivalent) Active 1 NMA topical TWICE A DAY 0 March 15, 2023 12:00am Start: 03-15-2023 Petrolatum 33% (Eucerin Eqivalent) Active 1 applic topical TWICE A DAY 0 March 14, 2023 11:00pm Start: 03-15-2023 Petrolatum 33% (Eucerin Eqivalent) Active 1 applic topical TWICE A DAY 0 March 15, 2023 12:00am pramipexole dihydrochloride 0.125 mg oral tablet (20 sources) Nonergot Dopamine Agonist Start: 02-28-2023 End: 03-03-2023 take 0.25 mg by mouth at bedtime Pramipexole Active 0.25 MG PO AT BEDTIME March 03, 2023 12:00am Start: 12-13-2022 End: 03-14-2023 take 2 tablets by mouth at bedtime Pramipexole 0.125 mg tablet Active 0.25 mg PO AT BEDTIME March 03, 2023 12:00am Start: 12-05-2022 End: 02-05-2023 take 1 tablet by mouth once daily pramipexole (Mirapex) 0.125 MG tablet Take 1 tablet (0.125 mg) by mouth Nightly. 30 tablet 1 12/07/2022 12/13/2022 Discontinued Start: 12-23-2020 End: 03-15-2023 take 2 tablets by mouth at bedtime Pramipexole 1 mg tablet Discontinued 2 mg PO AT BEDTIME December 23, 2020 12:00am March 15, 2023 7:29pm Start: 12-23-2020 End: 03-15-2023 take 2 mg by mouth at bedtime Pramipexole Discontinued 2 MG PO AT BEDTIME December 23, 2020 12:00am March 15, 2023 7:29pm Start: 07-23-2020 take 2 tablets by mo uth once daily pramipexole (MIRAPEX) 1 MG tablet TAKE 2 TABLETS BY MOUTH EVERY DAY AT NIGHT 180 tablet 1 07/23/2020 Active Start: 11-13-2018 take 2 tablets by mo uth once daily pramipexole (MIRAPEX) 1 MG tablet Take 2 tablets by mouth nightly 180 tablet 0 11/13/2018 Active sulfamethoxazole 800 mg / trimethoprim 160 mg oral tablet (15 sources) Dihydrofolate Reductase Inhibitor Antibacterial, Sulfonamide Antimicrobial Start: 03-17-2023 Sulfamethoxazole-Trimethopri m 800-160 mg Tablet Active 1 {tbl} PO TWICE A DAY 0 March 17, 2023 12:00am Start: 03-17-2023 take 1 tablet by goran th twice daily Sulfamethoxazole-Trimethoprim Active 1 T ABLET PO TWICE A DAY 0 March 17, 2023 12:00am Start: 07-28-2021 End: 08-07-2021 take 1 tablet by mouth twice daily sulfamethoxazole-trimethoprim (BACTRIM DS;SEPTRA DS) 800-160 MG per tablet Indications: Lymphedema , Open wound of left lower leg, initial encounter Take 1 tablet by mouth 2 times daily for 10 days 20 tablet 0 07/28/2021 08/07/2021 suvorexant 20 mg oral tablet (1 source) Orexin Receptor Antagonist Start: 09-01-2020 End: 10-01-2020 take 1 tablet by mouth once daily as needed Suvorexant (BELSOMRA) 20 MG TABS Indications: Primary insomnia Take 1 tablet by mouth nightly as needed (Insomnia) for up to 30 days. 30 tablet 0 09/01/2020 10/01/2020 Active 24 hr tolterodine tartrate 2 mg extended release oral capsule (14 sources) Cholinergic Muscarinic Antagonist Start: 03-15-2023 take 1 capsule by mouth once daily Tolterodine 2 mg Capsule,Extended Release 24hr Active 2 mg PO DAILY March 15, 2023 12:00am traMADol hydrochloride 50 mg oral tablet (3 sources) Opioid Agonist Start: 07-08-2022 End: 07-13-2022 take 1 tablet by mouth every six hours as needed for pain traMADol (Ultram) 50 MG tablet Indications: Trauma Take 1 tablet (50 mg) by mouth every 6 hours as needed for severe pain (7-10) for up to 5 days. 20 tablet 0 07/08/2022 07/13/2022 Active traZODone hydrochloride 50 mg oral tablet (1 source) Serotonin Reuptake Inhibitor Start: 08-16-2018 take 1 tablet by mouth once daily traZODone (DESYREL) 50 MG tablet Take 1 tablet by mouth nightly 30 tablet 0 08/16/2018 Active triamcinolone acetonide 0.001 mg/mg topical ointment (14 sources) Corticosteroid Start: 03-15-2023 Triamcinolone Acetonide 0.1 % Ointment Active 1 NMA TOPICAL TWICE A DAY 0 March 15, 2023 12:00am Please contact the information source for Protocol details. Completed/Discontinued Medications Medication Drug Class(es) Dates Sig (Normalized) Sig (Original) [id number] 200 actuat albuterol 0.09 mg/actuat metered dose inhaler (20 sources) beta2-Adrenergic Agonist Start: 03-03-2023 End: 03-15-2023 Albuterol Sulfate 90 mcg/actuation HFA aerosol inhaler Discontinued 2 NMA INHALATION EVERY 6 HOURS as needed for shortness of breath or wheezing March 03, 2023 12:00am March 15, 2023 7:30pm Start: 03-03-2023 End: 03-15-2023 Albuterol Sulfate Discontinu ed 2 INH INHALATION EVERY 6 HOURS March 03, 2023 12:00am March 15, 2023 7:30pm Start: 02-28-2023 End: 03-03-2023 take 2 puff(s) by inhalation every six hours as needed for wheezing 2 puff, Inhalation, Every 6 hours PRN, wheezing, Starting on Mon02/28/23 at 1804 Start: 12-05-2022 End: 12-06-2022 take 2 puff(s) by inhalation four times daily 2 puff, Inhalation, 4 times daily, First dose on Mon12/05/22 at 2100 Start: 03-10-2022 End: 12-07-2022 albuterol 108 (90 Base) MCG/ ACT inhaler 2 puff Start: 04-22-2021 End: 08-05-2021 take 2 puff(s) by inhalation every six hours as needed for cough albuterol sulfate HFA 108 (90 Base) MCG/ACT inhaler Inhale 2 puffs into the lungs every 6 hours as needed (Cough) 18 g 1 04/22/2021 08/05/2021 Discontinued (Therapy completed) Start: 09-10-2018 End: 10-01-2020 albuterol (PROVENTIL) (2.5 M G/3ML) 0.083% nebulizer solution Take 3 mLs by nebulization every 6 hours as needed for Wheezing 25 vial 0 09/10/2018 10/01/2020 Discontinued (LIST CLEANUP) Start: 10-06-2016 take 2 puff(s) by in halation every six hours as needed for wheezing albuterol sulfate HFA 108 (90 BASE) MCG/ACT inhaler Inhale 2 puffs into the lungs every 6 hours as needed for Wheezing 1 Inhaler 2 10/06/2016 Active Start: 10-06-2016 End: 10-01-2020 take 2 puff(s) by inhalation every six hours as needed for wheezing albuterol sulfate HFA 108 (90 BASE) MCG/ACT inhaler Inhale 2 puffs into the lungs every 6 hours as needed for Wheezing 1 Inhaler 2 10/06/2016 10/01/2020 Discontinued (Therapy completed) amLODIPine 5 mg oral tablet (20 sources) Dihydropyridine Calcium Channel Neema Start: 02-28-2023 End: 03-03-2023 take 10 mg by mouth once daily 10 mg, Oral, Daily, First dose on Mon02/28/23 at 1815 Start: 12-05-2022 End: 12-07-2022 take 10 mg by mouth once daily 10 mg, Oral, Daily, Fir st dose on Mon12/05/22 at 1955 Start: 07-15-2021 take 1 tablet by goran th once daily Amlodipine 10 mg tablet Active 10 mg PO DAILY July 15, 2021 1:00am Start: 02-19-2021 End: 07-15-2021 take 2 tablets by mouth once daily Amlodipine 5 mg tablet Discontinued 10 mg PO DAILY February 19, 2021 11:42am July 15, 2021 4:15pm Start: 02-19-2021 End: 07-15-2021 take 10 mg by mouth once daily Amlodipine Discontinued 10 MG PO DAILY February 19, 2021 11:42am July 15, 2021 4:15pm Start: 02-09-2021 End: 02-19-2021 take 1 tablet by mouth once daily Amlodipine 5 mg tablet Discontinued 5 mg PO DAILY February 09, 2021 2:54pm February 19, 2021 11:42am Start: 02-01-2021 End: 02-09-2021 take 1 tablet by mouth once daily Amlodipine (Norvasc) 2.5 mg tablet Discontinued 2.5 mg PO DAILY February 01, 2021 12:00am February 09, 2021 9:05am Start: 12-23-2020 End: 12-24-2020 take 1 tablet by mouth once daily Amlodipine 10 mg tablet Discontinued 10 mg PO DAILY December 23, 2020 12:00am December 24, 2020 1:13pm Start: 05-11-2020 take 1 tablet by goran th once daily amLODIPine (NORVASC) 10 MG tablet TAKE 1 TABLET BY MOUTH EVERY DAY 90 tablet 0 05/11/2020 Active amoxicillin 875 mg / clavulanate 125 mg oral tablet (4 sources) Penicillin-class Antibacterial Start: 02-27-2023 End: 03-06-2023 take 1 tablet by mouth twice daily 1 tablet, Oral, 2 times daily, First dose on Mon02/28/23 at 2100 Suspected Indication (Select all that apply): Urinary Tract Infection aspirin 81 mg delayed release oral tablet (8 sources) Platelet Aggregation Inhibitor, Nonsteroidal Anti-inflammatory Drug End: 06-30-2022 aspirin 81 MG EC tablet Every 24 hours. 0 06/30/2022 Discontinued (Therapy completed) End: 10-01-2020 take 1 tablet by mouth once daily aspirin 81 MG tablet Take 81 mg by mouth daily 0 10/01/2020 Discontinued (LIST CLEANUP) Blood Glucose Monitoring Sup pl (ACCU-CHEK DONOVAN PLUS) w/Device KIT (7 sources) Start: 03-11-2019 End: 10-14-2020 Blood Glucose Monitoring Sup pl (ACCU-CHEK DONOVAN PLUS) w/Device KIT Use, as directed, four times a day to test blood sugar 0 03/11/2019 10/14/2020 Discontinued (LIST CLEANUP) Start: 03-11-2019 Blood Glucose Monitoring Suppl (ACCU-CHEK DONOVAN PLUS) w/Device KIT Use, as directed, four times a day to test blood sugar 0 03/11/2019 Active Blood Glucose Monitoring Sup pl (ONE TOUCH ULTRA 2) w/Device KIT (8 sources) Start: 01-13-2020 End: 08-05-2021 Blood Glucose Monitoring Sup pl (ONE TOUCH ULTRA 2) w/Device KIT Indications: Uncontrolled diabetes mellitus type 2 with peripheral artery disease (HCC) Test blood sugar 4 times a day 1 kit 0 01/13/2020 08/05/2021 Discontinued (LIST CLEANUP) Start: 01-13-2020 Blood Glucose Monitoring Suppl (ONE TOUCH ULTRA 2) w/Device KIT Indications: Uncontrolled diabetes mellitus type 2 with peripheral artery disease (HCC) Test blood sugar 4 times a day 1 kit 0 01/13/2020 Active calcium chloride 0.0014 meq/ml / potassium chloride 0.004 meq/ml / sodium chloride 0.103 meq/ml / sodium lactate 0.028 meq/ml injectable solution (1 source) Start: 02-28-2023 End: 02-28-2023 lactated ringers bolus 1,000 mL carvedilol 12.5 mg oral tablet (7 sources) alpha-Adrenerg ic Neema, beta-Adrenergi c Neema Start: 04-27-2020 End: 08-10-2020 take 1 tablet by mouth once daily carvedilol (COREG) 12.5 MG tablet TAKE 1 TABLET BY MOUTH EVERY DAY 30 tablet 2 04/27/2020 08/10/2020 Discontinued chlorhexidine gluconate 40 mg/ml medicated liquid soap (1 source) Start: 03-01-2023 End: 03-03-2023 chlorhexidine (Hibiclens) 4 % liquid cholecalciferol 0.025 mg oral tablet (1 source) Vitamin D Start: 03-02-2023 End: 03-02-2023 cholecalciferol (Vitamin D3) tablet 1,000 Units cholecalciferol 9.52 unt/ml / glucose 357 mg/ml oral gel (3 sources) Vitamin D Start: 02-28-2023 End: 03-03-2023 glucose oral gel 15 g Start: 12-05-2022 End: 12-07-2022 glucose oral gel 15 g Continuous Blood Gluc Receiv er (FREESTYLE EVIN 14 DAY READER) JO (6 sources) Start: 06-04-2019 End: 10-01-2020 Continuous Blood Gluc Receiv er (FREESTYLE EVIN 14 DAY READER) JO LENGTH OF NEED LIFETIME - UNLESS SPECIFIED OTHERWISE 0 06/04/2019 10/01/2020 Discontinued (LIST CLEANUP) Start: 06-04-2019 Continuous Blo od Gluc Polysomnograph Tech (FREESTYLE EVIN 14 DAY READER) JO LENGTH OF NEED LIFETIME - UNLESS SPECIFIED OTHERWISE 0 06/04/2019 Active Continuous Blood Gluc Receiv er (FREESTYLE EVIN 2 READER) JO (1 source) Start: 06-14-2021 End: 08-05-2021 Continuous Blood Gluc Receiv er (FREESTYLE EVIN 2 READER) JO Indications: Uncontrolled type 2 diabetes mellitus with hyperglycemia (HCC) 1 each by Does not apply route daily 1 each 0 06/14/2021 08/05/2021 Discontinued (LIST CLEANUP) Continuous Blood Gluc Sensor (FREESTYLE EVIN 14 DAY SENSOR) MISC (6 sources) Start: 06-06-2019 End: 10-01-2020 Continuous Blood Gluc Sensor (FREESTYLE EVIN 14 DAY SENSOR) MISC LENGTH OF NEED LIFETIME - UNLESS SPECIFIED OTHERWISE 0 06/06/2019 10/01/2020 Discontinued (LIST CLEANUP) Start: 06-06-2019 Continuous Blo od Gluc Sensor (FREESTYLE EVIN 14 DAY SENSOR) MISC LENGTH OF NEED LIFETIME - UNLESS SPECIFIED OTHERWISE 0 06/06/2019 Active Continuous Blood Gluc Sensor (FREESTYLE EVIN 2 SENSOR) MISC (1 source) Start: 06-14-2021 End: 08-05-2021 Continuous Blood Gluc Sensor (FREESTYLE EVIN 2 SENSOR) MISC Indications: Uncontrolled type 2 diabetes mellitus with hyperglycemia (HCC) 1 each by Does not apply route every 14 days 2 each 0 06/14/2021 08/05/2021 Discontinued (LIST CLEANUP) doxepin hydrochloride 75 mg oral capsule (6 sources) Tricyclic Antidepressant Start: 03-04-2020 End: 10-01-2020 take 1 capsule by mouth once daily doxepin (SINEQUAN) 75 MG capsule Take 1 capsule by mouth nightly 30 capsule 3 03/04/2020 10/01/2020 Discontinued (LIST CLEANUP) 0.4 ml enoxaparin sodium 100 mg/ml prefilled syringe (1 source) Low Molecular Weight Heparin Start: 02-28-2023 End: 03-03-2023 inject 40 mg by subcutaneous injection every twenty-four hours 40 mg, SubCUTAneous, Every 24 hours scheduled (Daily), First dose on Mon02/28/23 at 1815 Indication of Use: Prophylaxis-DVT/PE Indications: Prophylaxis of Venous Thromboembolism glucagon (rdna) 1 mg injection (3 sources) Antihypoglycemic Agent Start: 02-28-2023 End: 03-03-2023 take 1 mL intravenously every hour 1 mg, IntraMUSCular, PRN, low blood sugar, Blood glucose less than 70 mg/dL and patient NOT ALERT or NPO and does not have IV access., Starting on Mon02/28/23 at 1804 After administration, attempt intravenous access and start D5W at 100 mL/hr. Repeat blood glucose in 15 minutes x2 and notify provider. Start: 12-05-2022 End: 12-07-2022 glucagon (human recombinant) injection 1 mg 150 ml glucose 50 mg/ml injection (6 sources) Start: 02-28-2023 End: 03-03-2023 100 mL/hr, IntraVENous, PRN, Blood sugar less than 70mg/dL, Starting on Mon02/28/23 at 1804 Start infusion following administration of dextrose 50% or glucagon. Start: 02-28-2023 End: 03-03-2023 dextrose 50 % solution 12.5 g Start: 12-05-2022 End: 12-07-2022 dextrose 50 % solution 12.5 g Start: 12-05-2022 End: 12-07-2022 dextrose 5 % infusion hydroCHLOROthiazide 25 mg oral tablet (20 sources) Thiazide Diuretic Start: 07-23-2020 End: 01-29-2021 take 1 tablet by mouth once daily Hydrochlorothiazide 25 mg tablet Discontinued 25 mg PO DAILY December 24, 2020 12:00am January 29, 2021 2:57pm 3 ml insulin degludec 100 unt/ml pen injector (20 sources) Insulin Analog Start: 01-29-2021 End: 03-15-2023 Insulin Degludec (Tresiba Flextouch U-100) 100 unit/mL (3 mL) insulin pen Discontinued 22 U SC TWICE A DAY 0 January 29, 2021 2:57pm March 15, 2023 7:29pm Start: 12-24-2020 End: 01-29-2021 Insulin Degludec (Tresiba Fl extouch U-100) 100 unit/mL (3 mL) insulin pen Discontinued 20 U SC TWICE A DAY 0 December 24, 2020 1:15pm January 29, 2021 2:59pm Start: 12-23-2020 End: 12-24-2020 Insulin Degludec (Tresiba Fl extouch U-100) 100 unit/mL (3 mL) insulin pen Discontinued 22 U SC TWICE A DAY December 23, 2020 12:00am December 24, 2020 1:15pm Start: 09-16-2020 Insulin Deglud ec 100 UNIT/ML SOPN Indications: Diabetes mellitus type 2 in obese (HCC) Inject 22 Units into the skin 2 times daily 1 pen 2 09/16/2020 Active Insulin Lispro (Humalog) injection 0-12 Units (2 sources) Start: 12-05-2022 End: 12-07-2022 Insulin Lispro (Humalog) injection 0-12 Units 3 ml insulin aspart, human 100 unt/ml pen injector (20 sources) Insulin Analog Start: 02-27-2023 End: 03-03-2023 insulin aspart (NovoLOG FLEXPEN) 100 UNIT/ML pen Inject 16 Units under the skin in the morning and 16 Units at noon and 16 Units in the evening and 16 Units before bedtime. Before meals.. 10 mL 1 02/27/2023 03/03/2023 Discontinued (Stop taking at discharge) Start: 06-24-2021 insulin aspart (NovoLOG FLEXPEN) 100 UNIT/ML pen Inject 16 Units under the skin. Before meals. 0 06/24/2021 Active Start: 06-24-2021 insulin aspart (NovoLOG FLEXPEN) 100 UNIT/ML pen Inject 14 Units under the skin. 0 06/24/2021 Active Start: 06-24-2021 NOVOLOG FLEXPE N 100 UNIT/ML injection pen INJECT 14 UNITS INTO THE SKIN 4 TIMES DAILY 60 mL 3 06/24/2021 Active Start: 01-29-2021 End: 03-15-2023 Insulin Aspart U-100 (Novolo g Flexpen U-100 Insulin) 100 unit/mL (3 mL) insulin pen Discontinued 18 U SC TWICE A DAY 0 January 29, 2021 2:57pm March 15, 2023 7:29pm Start: 12-24-2020 End: 01-29-2021 Insulin Aspart U-100 (Novolo g Flexpen U-100 Insulin) 100 unit/mL (3 mL) insulin pen Discontinued 10 U SC THREE TIMES A DAY 0 December 24, 2020 1:15pm January 29, 2021 2:59pm Start: 12-23-2020 End: 12-24-2020 Insulin Aspart U-100 (Novolo g Flexpen U-100 Insulin) 100 unit/mL (3 mL) insulin pen Discontinued 14 U SC THREE TIMES A DAY December 23, 2020 12:00am December 24, 2020 1:15pm Start: 04-21-2020 End: 08-03-2020 insulin aspart (NOVOLOG FLEX PEN) 100 UNIT/ML injection pen Inject 14 Units into the skin 4 times daily 10 pen 2 04/21/2020 08/03/2020 Discontinued (REORDER) insulin, regular, human 100 unt/ml injectable solution (1 source) Insulin Start: 02-28-2023 End: 02-28-2023 insulin regular (HumuLIN R,NovoLIN R) injection 10 Units iopamidol (Isovue-370) 76 % injection 75 mL (2 sources) Start: 12-05-2022 End: 12-05-2022 iopamidol (Isovue-370) 76 % injection 75 mL 10 ml lidocaine hydrochloride 10 mg/ml injection (3 sources) Antiarrhythmic, Amide Local Anesthetic Start: 02-01-2019 End: 02-01-2019 lidocaine PF 1 % injection 5 mL Start: 02-01-2019 End: 02-01-2019 lidocaine PF 1 % injection 1 0 mL Start: 02-01-2019 End: 02-01-2019 lidocaine PF 1 % injection lisinopril 40 mg oral tablet (20 sources) Angiotensin Converting Enzyme Inhibitor Start: 12-05-2022 End: 12-07-2022 take 40 mg by mouth once daily 40 mg, Oral, Daily, First dose on Mon12/05/22 at 1955 Start: 12-23-2020 End: 03-15-2023 take 1 tablet by mouth once daily Lisinopril 40 mg tablet Discontinued 40 mg PO DAILY December 23, 2020 12:00am March 15, 2023 7:29pm Start: 07-23-2020 End: 08-26-2020 take 1 tablet by mouth once daily lisinopril (PRINIVIL;ZESTRIL) 40 MG tablet Take 1 tablet by mouth daily 90 tablet 1 07/23/2020 08/26/2020 Discontinued meloxicam 7.5 mg oral tablet (20 sources) Nonsteroidal Anti-inflammatory Drug Start: 12-17-2022 End: 03-03-2023 take 1 tablet by mouth once daily meloxicam (Mobic) 7.5 MG tablet Indications: Chronic left shoulder pain Take 1 tablet (7.5 mg) by mouth daily. 90 tablet 1 02/07/2023 03/03/2023 Discontinued (Stop taking at discharge) Start: 10-04-2022 End: 12-07-2022 take 1 tablet by mouth once daily meloxicam (Mobic) 7.5 MG tablet Indications: Chronic left shoulder pain Take 1 tablet (7.5 mg) by mouth daily. 30 tablet 0 10/04/2022 12/07/2022 Discontinued (Stop taking at discharge) Start: 06-30-2022 take 1 tablet by goran th once daily meloxicam (Mobic) 7.5 MG tablet Take 1 tablet (7.5 mg) by mouth daily. 30 tablet 0 07/19/2022 Active Start: 12-23-2020 End: 03-15-2023 take 1 tablet by mouth once daily Meloxicam 15 mg tablet Discontinued 15 mg PO DAILY December 23, 2020 12:00am March 15, 2023 7:29pm Start: 07-23-2020 End: 08-26-2020 take 1 tablet by mouth once daily meloxicam (MOBIC) 15 MG tablet Take 1 tablet by mouth daily 90 tablet 1 07/23/2020 08/26/2020 Discontinued Start: 11-13-2018 take 1 tablet by goran th once daily meloxicam (MOBIC) 15 MG tablet Take 1 tablet by mouth daily 90 tablet 1 11/13/2018 Active ondansetron ODT (Zofran-ODT) disintegrating tablet 4 mg (3 sources) Start: 02-28-2023 End: 03-03-2023 take 1 tablet by mouth every eight hours as needed for nausea and vomiting ondansetron ODT (Zofran-ODT) disintegrating tablet 4 mg Start: 12-05-2022 End: 12-07-2022 take 1 tablet by mouth every eight hours as needed for nausea and vomiting ondansetron ODT (Zofran-ODT) disintegrating tablet 4 mg perflutren lipid microspheres (DEFINITY) injection 1.65 mg (1 source) Start: 10-07-2020 End: 10-07-2020 perflutren lipid microspheres (DEFINITY) injection 1.65 mg phentermine hydrochloride 37.5 mg oral tablet (1 source) Sympathomimetic Amine Anorectic Start: 07-08-2021 End: 08-05-2021 take 1 tablet by mouth once daily before breakfast phentermine (ADIPEX-P) 37.5 MG tablet Indications: Morbidly obese (HCC) Take 1 tablet by mouth every morning (before breakfast) for 30 days. 30 tablet 0 07/08/2021 08/05/2021 Discontinued (LIST CLEANUP) polyethylene glycol 3350 17423 mg powder for oral solution (3 sources) Osmotic Laxative Start: 02-28-2023 End: 03-03-2023 take 17 g by mouth every twenty-four hours as needed for constipation 17 g, Oral, Daily PRN, constipation, Starting on Mon02/28/23 at 1804 1st line for treatment of constipation - give scheduled if no bowel movement in past 24 hours. Start: 12-05-2022 End: 12-07-2022 take 17 g by mouth every twenty-four hours as needed for constipation 17 g, Oral, Daily PRN, constipation, Starting on Mon12/05/22 at 1953 1st line for treatment of constipation - give scheduled if no bowel movement in past 24 hours. polyethylene glycol 3350 [id number] mg / potassium chloride 2970 mg / sodium bicarbonate 6740 mg / sodium chloride 5860 mg / sodium sulfate 54878 mg powder for oral solution (2 sources) Osmotic Laxative Start: 12-06-2022 End: 12-06-2022 polyethylene glycol (GoLYTELY) solution 4,000 mL microencapsulated potassium chloride 20 meq extended release oral tablet (20 sources) Start: 12-07-2022 End: 12-07-2022 potassium chloride CR (Klor-Con M20) ER tablet 40 mEq Start: 12-07-2022 End: 12-07-2022 potassium chloride CR (Klor- Con M20) ER tablet 40 mEq Start: 01-29-2021 End: 03-03-2023 take 1 tablet by mouth once daily Potassium Chloride 20 mEq tablet extended release Discontinued 20 meq PO DAILY January 29, 2021 12:00am March 01, 2021 3:38pm Start: 12-28-2020 take 1 tablet by goran once daily potassium chloride (KLOR-CON M) 20 MEQ extended release tablet Take 1 tablet by mouth daily 30 tablet 0 12/28/2020 Active rosuvastatin calcium 10 mg oral tablet (20 sources) HMG-CoA Reductase Inhibitor Start: 06-14-2022 End: 03-15-2023 take 1 tablet by mouth once daily Rosuvastatin 10 mg tablet Discontinued 10 mg PO DAILY March 03, 2023 12:00am March 15, 2023 7:30pm Start: 05-24-2021 take 1 tablet by goran th once daily rosuvastatin (CRESTOR) 10 MG tablet Indications: Hyperlipidemia with target LDL less than 70 Take 1 tablet by mouth daily 90 tablet 1 05/24/2021 Active 1000 ml sodium chloride 9 mg/ml injection (9 sources) Start: 02-28-2023 End: 03-01-2023 take 75 mL intravenously every hour 75 mL/hr, IntraVENous, Continuous, Starting on Mon02/28/23 at 1815 Start: 12-06-2022 End: 12-07-2022 sodium chloride 0.9 % infusi on Start: 12-06-2022 End: 12-07-2022 sodium chloride 0.9% (NS) fl ush 10 mL Start: 12-05-2022 End: 12-07-2022 take 75 mL intravenously every hour 75 mL/hr, IntraVEN ous, Continuous, Starting on Mon12/05/22 at 1900 spironolactone 25 mg oral tablet (16 sources) Aldosterone Antagonist Start: 03-01-2021 End: 03-15-2023 take 1 tablet by mouth once daily Spironolactone 25 mg tablet Discontinued 25 mg PO DAILY March 01, 2021 12:00am March 15, 2023 7:29pm torsemide 20 mg oral tablet (20 sources) Loop Diuretic Start: 12-28-2020 End: 03-15-2023 take 1 tablet by mouth twice daily Torsemide 20 mg tablet Discontinued 20 mg PO TWICE A DAY January 29, 2021 12:00am March 15, 2023 7:29pm Start: 10-01-2020 take 1 tablet by goran th twice daily torsemide (DEMADEX) 20 MG tablet Take 1 tablet by mouth 2 times daily 60 tablet 0 10/01/2020 Active Start: 04-20-2020 End: 10-01-2020 take 1 tablet by mouth once daily torsemide (DEMADEX) 100 MG tablet Take 1 tablet by mouth daily 30 tablet 3 04/20/2020 10/01/2020 Discontinued (REORDER) zolpidem tartrate 5 mg oral tablet (20 sources) gamma-Aminobutyric Acid-ergic Agonist Start: 03-01-2023 End: 03-01-2023 zolpidem (Ambien) tablet 5 mg Start: 12-22-2022 End: 03-03-2023 zolpidem (Ambien) 10 MG tabl et Indications: Primary insomnia Take 1 tablet (10 mg) by mouth Nightly as needed for sleep. Do not start before December 22, 2022. 30 tablet 0 12/22/2022 03/03/2023 Discontinued (Stop taking at discharge) Start: 12-05-2022 End: 12-07-2022 take 5 mg by mouth once daily as needed for sleep 5 mg, Oral, Nightly PRN, sleep, Starting on Mon12/05/22 at 1953 Start: 11-22-2022 take 1 tablet by goran th once daily as needed for sleep zolpidem (Ambien) 10 MG tablet Indications: Primary insomnia Take 1 tablet (10 mg) by mouth Nightly as needed for sleep. 30 tablet 0 11/22/2022 Active Start: 08-08-2022 take 1 tablet by goran th once daily as needed for sleep zolpidem (Ambien) 10 MG tablet Indications: Primary insomnia Take 1 tablet (10 mg) by mouth Nightly as needed for sleep. 30 tablet 0 08/08/2022 Active Start: 01-11-2022 take 1 tablet by goran th every twenty-four hours as needed zolpidem (Ambien) 10 MG tablet Take 10 mg by mouth every 24 hours as needed. 0 01/11/2022 Active Start: 12-23-2020 End: 03-15-2023 take 1 tablet by mouth at bedtime Zolpidem 12.5 mg tablet,ext release multiphase Discontinued 12.5 mg PO AT BEDTIME December 23, 2020 12:00am March 15, 2023 7:29pm Start: 07-08-2020 End: 10-16-2020 take 1 tablet by mouth once daily as needed for sleep zolpidem (AMBIEN CR) 12.5 MG extended release tablet Indications: Insomnia, unspecified type Take 1 tablet by mouth nightly as needed for Sleep for up to 30 days. 30 tablet 0 07/08/2020 10/16/2020 Discontinued (REORDER) Problems Active Problems Problem Classification Problem Date Documented Da te Episodic/Chronic Anxiety disorders (4 sources) Anxiety; Translations: [Anxiety disorder, unspecified] Onset: 3 03-01-2023 Chronic Chronic kidney disease (20 sources) Chronic kidney disease stage 3; Translations: [Chronic renal insufficiency, stage III (moderate)] Onset: 9 06-03-2019 Chronic Chronic kidney disease (2 sources) Chronic kidney disease; Translations: [Chronic kidney disease, stage 3 unspecified (HCC)] Onset: 3 Chronic ulcer of skin (3 sources) Pressure ulcer of right buttock, stage 3; Translations: [Pressure ulcer, buttock] Onset: 3 03-01-2023 Chronic Diabetes mellitus with complications (20 sources) Type 2 diabetes mellitus in obese; Translations: [Type II diabetes mellitus uncontrolled] Onset: 5 Resolved: 1 06-03-2019 Chronic Diabetes mellitus without complication (20 sources) Diabetes mellitus; Translations: [Type 2 diabetes mellitus without complications] Onset: 5 Resolved: 1 01-16-2020 Chronic Disorders of lipid metabolism (20 sources) Hyperlipidemia; Translations: [Hyperlipidemia, unspecified] Onset: 5 06-03-2019 Chronic Essential hypertension (20 sources) Hypertensive disorder; Translations: [Essential (primary) hypertension] Onset: 5 01-14-2015 Chronic Genitourinary symptoms and ill-defined conditions (20 sources) Increased frequency of urination; Translations: [Frequency of micturition] Onset: 3 10-04-2022 Episodic Heart valve disorders (14 sources) Mitral valve annular calcification; Translations: [Mitral valve annular calcification] 01-26-2021 Chronic Malaise and fatigue (20 sources) Decline in functional status; Translations: [Other malaise] Onset: 3 03-01-2023 Episodic Miscellaneous mental health disorders (1 source) Primary insomnia; Translations: [Primary insomnia] Chronic Mood disorders (20 sources) Recurrent major depressive episodes, moderate ; Translations: [Depressive disorder] Onset: 5 06-03-2019 Chronic Mycoses (20 sources) Onychomycosis due to dermatophyte ; Translations: [Tinea unguium] 03-08-2023 Episodic Nutritional deficiencies (20 sources) Vitamin D deficiency; Translations: [Vitamin D deficiency, unspecified] Onset: 0 01-16-2020 Chronic Other and ill-defined heart disease (14 sources) Right cardiac ventricular dilatation; Translations: [Cardiomegaly] 01-26-2021 Chronic Other connective tissue disease (20 sources) Pain in toe; Translations: [Pain in left toe(s)] 03-08-2023 Episodic Other connective tissue disease (14 sources) Swelling of lower limb; Translations: [Other specified soft tissue disorders] 12-29-2020 Episodic Other connective tissue disease (6 sources) Pain in left toe(s); Translations: [Pain in limb] 03-18-2023 Episodic Other connective tissue disease (6 sources) Pain in right toe(s); Translations: [Pain in limb] 03-18-2023 Episodic Other diseases of bladder and urethra (20 sources) Overactive bladder; Translations: [Overactive bladder] Onset: 1 05-06-2021 Chronic Other diseases of veins and lymphatics (20 sources) Lymphedema of bilateral lower limbs; Translations: [Lymphedema, not elsewhere classified] Onset: 2 08-05-2021 Chronic Other diseases of veins and lymphatics (14 sources) Lymphedema; Translations: [Lymphedema, not elsewhere classified] 03-08-2023 Chronic Other diseases of veins and lymphatics (8 sources) Lymphedema, not elsewhere classified; Translations: [Other lymphedema] Onset: 5 03-18-2023 Chronic Other diseases of veins and lymphatics (14 sources) Venous stasis; Translations: [Other specified disorders of veins] 12-23-2020 Episodic Other diseases of veins and lymphatics (14 sources) Peripheral venous insufficiency; Translations: [Venous insufficiency (chronic) (peripheral)] 12-29-2020 Episodic Other gastrointestinal disorders (1 source) History of gastrointestinal bleed; Translations: [Personal history of other diseases of the digestive system] 02-27-2023 Episodic Other hereditary and degenerative nervous system conditions (20 sources) Restless legs; Translations: [Restless legs syndrome] Onset: 5 01-14-2015 Chronic Other hereditary and degenerative nervous system conditions (6 sources) Restless legs syndrome; Translations: [Restless legs syndrome (RLS)] 03-18-2023 Chronic Other nervous system disorders (2 sources) Other chronic pain; Translations: [Other chronic pain] Onset: 3 Chronic Other nutritional; endocrine; and metabolic disorders (20 sources) Morbid obesity; Translations: [Morbid (severe) obesity due to excess calories] Onset: 0 01-16-2020 Chronic Other screening for suspected conditions (not mental disorders or infectious disease) (14 sources) Echocardiogram abnormal; Translations: [Abnormal findings on diagnostic imaging of heart and coronary circulation] 12-24-2020 Episodic Other upper respiratory infections (16 sources) Chronic sinusitis; Translations: [Other chronic sinusitis] Onset: 3 10-25-2022 Chronic Pulmonary heart disease (14 sources) Pulmonary arterial hypertension; Translations: [Secondary pulmonary arterial hypertension] 01-26-2021 Chronic Residual codes; unclassified (20 sources) Insomnia; Translations: [Insomnia, unspecified] Onset: 5 04-06-2015 Episodic Residual codes; unclassified (14 sources) Edema of lower extremity; Translations: [Localized edema] 12-29-2020 Episodic Residual codes; unclassified (14 sources) Edema; Translations: [Edema, unspecified] 03-03-2023 Episodic Residual codes; unclassified (8 sources) Edema, unspecified; Translations: [Edema] Onset: 5 03-18-2023 Episodic Rheumatoid arthritis and related disease (20 sources) Rheumatoid arthritis; Translations: [Rheumatoid arthritis, unspecified] 12-29-2020 Chronic Skin and subcutaneous tissue infections (5 sources) Cellulitis of left lower limb; Translations: [Cellulitis of left lower extremity] Onset: 1 07-06-2020 Spondylosis; intervertebral disc disorders; other back problems (20 sources) Degeneration of lumbar intervertebral disc; Translations: [Other intervertebral disc degeneration, lumbar region] Onset: 3 06-30-2022 Chronic Thyroid disorders (20 sources) Hypothyroidism; Translations: [Hypothyroidism, unspecified] Onset: 5 01-14-2015 Chronic Unclassified (2 sources) Wound Care; Translations: [Wound Care] Onset: 3 Urinary tract infections (20 sources) Acute cystitis; Translations: [Acute cystitis with hematuria] Onset: 3 02-27-2023 Episodic Past or Other Problems Problem Classification Problem Date Documented Da te Episodic/Chronic Acute and unspecified renal failure (8 sources) Acute injury of kidney; Translations: [Acute kidney failure, unspecified] Onset: 3 02-28-2023 Episodic Chronic obstructive pulmonary disease and bronchiectasis (20 sources) Bronchitis; Translations: [Bronchitis, not specified as acute or chronic] Onset: 1 Resolved: 3 04-12-2021 Episodic E Codes: Fall (4 sources) Fall; Translations: [Unspecified fall, initial encounter] Onset: 9 Resolved: 9 03-03-2019 Episodic External cause codes: Fall (6 sources) Fall; Translations: [Fall] Onset: 9 Resolved: 9 03-03-2019 Fluid and electrolyte disorders (16 sources) Hypokalemia; Translations: [Hypokalemia] Onset: 3 12-13-2022 Episodic Gastrointestinal hemorrhage (20 sources) Acute lower gastrointestinal hemorrhage; Translations: [Gastrointestinal hemorrhage, unspecified] Onset: 3 Resolved: 3 12-05-2022 Episodic Mood disorders (20 sources) Mood disorders Onset: 2 Resolved: 3 09-30-2022 Open wounds of head; neck; and trunk (20 sources) Laceration of head; Translations: [Scalp laceration] Onset: 9 Resolved: 4 06-03-2019 Episodic Other aftercare (5 sources) Polypharmacy ; Translations: [Other [facility]p (current) drug therapy] Onset: 3 03-01-2023 Episodic Other aftercare (2 sources) Other m[facility]p (current) drug therapy; Translations: [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] Onset: 3 Episodic Other aftercare (2 sources) oysterman (current) use of insulin; Translations: [oysterman (current) use of insulin (HCC)] Onset: 3 Episodic Other connective tissue disease (20 sources) Rhabdomyolysis; Translations: [Rhabdomyolysis] Onset: 9 Resolved: 3 01-20-2019 Episodic Other connective tissue disease (20 sources) Disorder of lower extremity; Translations: [Other muscle spasm] Onset: 2 09-09-2021 Episodic Other connective tissue disease (2 sources) Spasm; Translations: [Other muscle spasm] Onset: 2 04-04-2022 Episodic Other gastrointestinal disorders (6 sources) Diarrhea; Translations: [Diarrhea, unspecified] Onset: 3 02-27-2023 Episodic Other gastrointestinal disorders (2 sources) Personal history of other diseases of the digestive system; Translations: [Personal history of other diseases of the digestive system] Onset: 3 Episodic Other injuries and conditions due to external causes (1 source) Injury of head; Translations: [Injury of head, initial encounter] Episodic Other injuries and conditions due to external causes (2 sources) Traumatic injury; Translations: [Injury, unspecified, initial encounter] Episodic Other lower respiratory disease (20 sources) Dyspnea on exertion; Translations: [Dyspnea, unspecified] Onset: 2 Episodic Other non-traumatic joint disorders (20 sources) Chronic pain of left upper limb; Translations: [Pain in left shoulder] Onset: 3 10-04-2022 Episodic Other non-traumatic joint disorders (2 sources) Pain in left shoulder; Translations: [Pain in left shoulder] Onset: 3 Episodic Residual codes; unclassified (20 sources) Dependent edema; Translations: [Edema, unspecified] Onset: 1 07-13-2020 Episodic Residual codes; unclassified (20 sources) Localized edema; Translations: [Localized edema] Onset: 1 Episodic Residual codes; unclassified (4 sources) Not for resuscitation; Translations: [Do not resuscitate] Onset: 3 03-01-2023 Episodic Residual codes; unclassified (8 sources) Insomnia, unspecified; Translations: [Insomnia, unspecified] Onset: 3 03-18-2023 Episodic Skin and subcutaneous tissue infections (20 sources) Cellulitis of left lower limb; Translations: [Cellulitis of left lower limb] Onset: 1 Resolved: 3 07-06-2020 Episodic Spondylosis; intervertebral disc disorders; other back problems (20 sources) Chronic low back pain; Translations: [Lumbago with sciatica, right side] Onset: 3 06-30-2022 Episodic Sprains and strains (1 source) Strain of neck muscle; Translations: [Strain of neck muscle, initial encounter] Episodic Results Test Name Value Interpretation Reference Range Facility Basic Metabolic Profile (BMP )on 11-14-2024 BUN/CRE 21.3 RATIO High 10-20 [facility] Comment on above: Performed By: #### L [id number], [id number] #### [facility] [address] [place], [address] Calcium [Mass/Vol] 8.6 mg/dL Normal 7.6-11.0 [facility] Comment on above: Performed By: #### L [id number], [id number] #### [facility] [address] [place], [address] Chloride [Moles/Vol] 101 mmol/L Normal 98-108 [facility] Comment on above: Performed By: #### L [id number], [id number] #### [facility] [address] [place], [address] CO2 [Moles/Vol] 29.7 mmol/L Normal 21.0-32.0 [facility] Comment on above: Performed By: #### L [id number], [id number] #### [facility] [address] [place], [address] Creatinine [Mass/Vol] 1.04 mg/dL Normal 0.70-1.20 [facility] Comment on above: Performed By: #### L [id number], [id number] #### [facility] [address] [place], [address] GAP 9 Normal 5-15 [facility] Comment on above: Performed By: #### L [id number], [id number] #### [facility] [address] [place], [address] GFR/1.73 sq M.predicted among non-blacks MDRD (S/P/Bld) [Vol rate/Area] 54 mL/min/{1.73_m2} Low >60 [facility] Comment on above: Result Comment: mL/m in/1.73m2 CKD-EPI Creatinine Equation (2020) Performed By: #### L [id number], [id number] #### [facility] [address] [place], [address] Glucose [Mass/Vol] 179 mg/dL High 70-99 [facility] Comment on above: Performed By: #### L [id number], [id number] #### [facility] [address] [place], [address] Potassium [Moles/Vol] 4.1 mmol/L Normal 3.3-5.1 [facility] Comment on above: Performed By: #### L [id number], [id number] #### [facility] [address] [place], [address] Sodium [Moles/Vol] 140 mmol/L Normal 133-145 [facility] Comment on above: Performed By: #### L [id number], [id number] #### [facility] [address] [place], [address] Urea nitrogen [Mass/Vol] 22 mg/dL High 4-19 [facility] Comment on above: Performed By: #### L [id number], [id number] #### [facility] [address] [place], [address] Magnesiumon 11-14-2024 Magnesium [Mass/Vol] 2.1 mg/dL Normal 1.5-2.2 [facility] Comment on above: Performed By: #### L [id number], [id number] #### [facility] [address] [place], [address] Basic Metabolic Profile (BMP )on 11-08-2024 BUN/CRE 24.4 RATIO High 10-20 [facility] Comment on above: Order Comment: 157 Performed By: #### L [id number], [id number] #### [facility] [address] [place], [address] Calcium [Mass/Vol] 8.8 mg/dL Normal 7.6-11.0 [facility] Comment on above: Order Comment: 157 Performed By: #### L [id number], [id number] #### [facility] [address] [place], [address] Chloride [Moles/Vol] 101 mmol/L Normal 98-108 [facility] Comment on above: Order Comment: 157 Performed By: #### L [id number], [id number] #### [facility] [address] [place], [address] CO2 [Moles/Vol] 28.3 mmol/L Normal 21.0-32.0 [facility] Comment on above: Order Comment: 157 Performed By: #### L [id number], [id number] #### [facility] [address] [place], [address] Creatinine [Mass/Vol] 1.08 mg/dL Normal 0.70-1.20 [facility] Comment on above: Order Comment: 157 Performed By: #### L [id number], [id number] #### [facility] [address] [place], [address] GAP 10 Normal 5-15 [facility] Comment on above: Order Comment: 157 Performed By: #### L [id number], [id number] #### [facility] [address] [place], [address] GFR/1.73 sq M.predicted among non-blacks MDRD (S/P/Bld) [Vol rate/Area] 52 mL/min/{1.73_m2} Low >60 [facility] Comment on above: Order Comment: 157 Result Comment: mL/m in/1.73m2 CKD-EPI Creatinine Equation (2020) Performed By: #### L [id number], [id number] #### [facility] [address] [place], [address] Glucose [Mass/Vol] 104 mg/dL High 70-99 [facility] Comment on above: Order Comment: 157 Performed By: #### L [id number], [id number] #### [facility] [address] [place], [address] Potassium [Moles/Vol] 3.6 mmol/L Normal 3.3-5.1 [facility] Comment on above: Order Comment: 157 Performed By: #### L [id number], [id number] #### [facility] [address] [place], [address] Sodium [Moles/Vol] 138 mmol/L Normal 133-145 [facility] Comment on above: Order Comment: 157 Performed By: #### L [id number], [id number] #### [facility] [address] [place], [address] Urea nitrogen [Mass/Vol] 26 mg/dL High 4-19 [facility] Comment on above: Order Comment: 157 Performed By: #### L [id number], [id number] #### [facility] [address] [place], [address] CBC-Complete Blood Cnt No Di ffon 11-08-2024 Erythrocyte distribution width (RBC) [Ratio] 12.8 % Normal 11.6-14.6 [facility] Comment on above: Order Comment: 157 Performed By: #### L [id number], [id number] #### [facility] [address] [place], [address] Hematocrit (Bld) [Volume fraction] 36.6 % Low 37-47 [facility] Comment on above: Order Comment: 157 Performed By: #### L [id number], [id number] #### [facility] [address] [place], [address] Hemoglobin (Bld) [Mass/Vol] 11.6 g/dL Low 12.0-15.0 [facility] Comment on above: Order Comment: 157 Performed By: #### L [id number], [id number] #### [facility] [address] [place], [address] MCH (RBC) [Entitic mass] 30.9 pg Normal 27.0-32.0 [facility] Comment on above: Order Comment: 157 Performed By: #### L [id number], [id number] #### [facility] [address] [place], [address] MCHC (RBC) [Mass/Vol] 31.7 g/dL Low 32-36 [facility] Comment on above: Order Comment: 157 Performed By: #### L [id number], [id number] #### [facility] [address] [place], [address] MCV (RBC) [Entitic vol] 97.6 fL Normal 81-99 [facility] Comment on above: Order Comment: 157 Performed By: #### L [id number], [id number] #### [facility] [address] [place], [address] Platelet mean volume (Bld) [Entitic vol] 10.2 fL Normal 6.2-12.0 [facility] Comment on above: Order Comment: 157 Performed By: #### L [id number], [id number] #### [facility] [address] [place], [address] Platelets (Bld) [#/Vol] 228 10*3/uL Normal 150-450 [facility] Comment on above: Order Comment: 157 Performed By: #### L [id number], [id number] #### [facility] [address] [place], [address] RBC (Bld) [#/Vol] 3.75 10*6/uL Low 4.2-5.4 [facility] Comment on above: Order Comment: 157 Performed By: #### L [id number], [id number] #### [facility] [address] [place], [address] RDW SD 46.0 fl High 35.1-43.9 [facility] Comment on above: Order Comment: 157 Performed By: #### L [id number], [id number] #### [facility] [address] [place], [address] WBC (Bld) [#/Vol] 8.4 10*3/uL Normal 4.4-11.0 [facility] Comment on above: Order Comment: 157 Performed By: #### L [id number], [id number] #### [facility] [address] [place], [address] Liver Profileon 11-08-2024 Albumin [Mass/Vol] 3.3 g/dL Low 3.4-4.8 [facility] Comment on above: Order Comment: 157 Performed By: #### L [id number], [id number] #### [facility] [address] [place], [address] ALK PHOS 110 U/L High 35-104 [facility] Comment on above: Order Comment: 157 Performed By: #### L [id number], [id number] #### [facility] [address] [place], [address] ALT [Catalytic activity/Vol] 87 U/L High <=34 [facility] Comment on above: Order Comment: 157 Performed By: #### L [id number], [id number] #### [facility] [address] [place], [address] AST [Catalytic activity/Vol] 81 U/L High <=31 [facility] Comment on above: Order Comment: 157 Performed By: #### L [id number], [id number] #### [facility] [address] [place], [address] Bilirubin [Mass/Vol] 0.46 mg/dL Normal 0.00-1.30 [facility] Comment on above: Order Comment: 157 Performed By: #### L [id number], [id number] #### [facility] [address] [place], [address] Bilirubin.direct [Mass/Vol] 0.22 mg/dL Normal 0.00-0.30 [facility] Comment on above: Order Comment: 157 Performed By: #### L [id number], [id number] #### [facility] [address] [place], [address] Globulin (S) [Mass/Vol] 2.9 g/dL Normal 2.2-4.2 [facility] Comment on above: Order Comment: 157 Performed By: #### L [id number], [id number] #### [facility] [address] [place], [address] T PROT 6.3 g/dL Normal 5.9-8.4 [facility] Comment on above: Order Comment: 157 Performed By: #### L [id number], [id number] #### [facility] [address] [place], [address] Magnesiumon 11-08-2024 Magnesium [Mass/Vol] 1.8 mg/dL Normal 1.5-2.2 [facility] Comment on above: Order Comment: 157 Performed By: #### L [id number], [id number] #### [facility] [address] [place], [address] Basic Metabolic Profile (BMP )on 10-17-2024 BUN/CRE 28.5 RATIO High 10-20 [facility] Comment on above: Order Comment: CLEAN CATCH Performed By: #### M [id number], [id number] #### [facility] [address] [place], [address] Calcium [Mass/Vol] 8.7 mg/dL Normal 7.6-11.0 [facility] Comment on above: Order Comment: CLEAN CATCH Performed By: #### M [id number], [id number] #### [facility] [address] [place], [address] Chloride [Moles/Vol] 103 mmol/L Normal 98-108 [facility] Comment on above: Order Comment: CLEAN CATCH Performed By: #### M [id number], [id number] #### [facility] [address] [place], [address] CO2 [Moles/Vol] 28.9 mmol/L Normal 21.0-32.0 [facility] Comment on above: Order Comment: CLEAN CATCH Performed By: #### M [id number], [id number] #### [facility] [address] [place], [address] Creatinine [Mass/Vol] 1.04 mg/dL Normal 0.70-1.20 [facility] Comment on above: Order Comment: CLEAN CATCH Performed By: #### M [id number], [id number] #### [facility] [address] [place], [address] GAP 9 Normal 5-15 [facility] Comment on above: Order Comment: CLEAN CATCH Performed By: #### M [id number], [id number] #### [facility] [address] [place], [address] GFR/1.73 sq M.predicted among non-blacks MDRD (S/P/Bld) [Vol rate/Area] 54 mL/min/{1.73_m2} Low >60 [facility] Comment on above: Order Comment: CLEAN CATCH Result Comment: mL/m in/1.73m2 CKD-EPI Creatinine Equation (2020) Performed By: #### M [id number], [id number] #### [facility] [address] [place], [address] Glucose [Mass/Vol] 106 mg/dL High 70-99 [facility] Comment on above: Order Comment: CLEAN CATCH Performed By: #### M [id number], [id number] #### [facility] [address] [place], [address] Potassium [Moles/Vol] 3.8 mmol/L Normal 3.3-5.1 [facility] Comment on above: Order Comment: CLEAN CATCH Performed By: #### M [id number], [id number] #### [facility] [address] [place], [address] Sodium [Moles/Vol] 140 mmol/L Normal 133-145 [facility] Comment on above: Order Comment: CLEAN CATCH Performed By: #### M [id number], [id number] #### [facility] [address] [place], [address] Urea nitrogen [Mass/Vol] 30 mg/dL High 4-19 [facility] Comment on above: Order Comment: CLEAN CATCH Performed By: #### M [id number], [id number] #### [facility] [address] [place], [address] Magnesiumon 10-17-2024 Magnesium [Mass/Vol] 2.3 mg/dL High 1.5-2.2 [facility] Comment on above: Order Comment: CLEAN CATCH Performed By: #### M [id number], [id number] #### [facility] [address] [place], [address] Anion gap in Serum or Plasma Ordered By: Melissa Reed on 10-03-2024 Anion gap [Moles/Vol] 10 mmol/L - [facility] BUN/creatinine ratioOrdered By: Melissa Reed on 10-03-2024 Urea nitrogen/Creatinine [Mass ratio] 24.4 mg/mg High - [facility] Basic Metabolic Profile (BMP )on 10-03-2024 BUN/CRE 24.4 RATIO High - [facility] Comment on above: Order Comment: CLEAN CATCH Performed By: #### M 100.0, [id number] #### [facility] [address] [place], [address] Calcium [Mass/Vol] 8.7 mg/dL Normal 7.6-11.0 [facility] Comment on above: Order Comment: CLEAN CATCH Performed By: #### M 100.2200, [id number] #### [facility] [address] [place], [address] Chloride [Moles/Vol] 102 mmol/L Normal 98-108 [facility] Comment on above: Order Comment: CLEAN CATCH Performed By: #### M 100.2200, [id number] #### [facility] [address] [place], [address] CO2 [Moles/Vol] 27.9 mmol/L Normal 21.0-32.0 [facility] Comment on above: Order Comment: CLEAN CATCH Performed By: #### M 100.2200, [id number] #### [facility] [address] [place], [address] Creatinine [Mass/Vol] 1.08 mg/dL Normal 0.70-1.20 [facility] Comment on above: Order Comment: CLEAN CATCH Performed By: #### M 100.0, [id number] #### [facility] [address] [place], [address] GAP 10 Normal 5-15 [facility] Comment on above: Order Comment: CLEAN CATCH Performed By: #### M 100.2199, [id number] #### [facility] [address] [place], [address] GFR/1.73 sq M.predicted among non-blacks MDRD (S/P/Bld) [Vol rate/Area] 52 mL/min/{1.73_m2} Low >60 [facility] Comment on above: Order Comment: CLEAN CATCH Result Comment: mL/m in/1.73m2 CKD-EPI Creatinine Equation (2020) Performed By: #### M 100.2199, [id number] #### [facility] [address] [place], [address] Glucose [Mass/Vol] 179 mg/dL High 70-99 [facility] Comment on above: Order Comment: CLEAN CATCH Performed By: #### M 100.0, [id number] #### [facility] [address] [place], [address] Potassium [Moles/Vol] 3.8 mmol/L Normal 3.3-5.1 [facility] Comment on above: Order Comment: CLEAN CATCH Performed By: #### M 100.2200, [id number] #### [facility] [address] [place], [address] Sodium [Moles/Vol] 139 mmol/L Normal 133-145 [facility] Comment on above: Order Comment: CLEAN CATCH Performed By: #### M 100.2200, [id number] #### [facility] [address] [place], [address] Urea nitrogen [Mass/Vol] 26 mg/dL High 4-19 [facility] Comment on above: Order Comment: CLEAN CATCH Performed By: #### M 100.2200, [id number] #### [facility] [address] [place], [address] Carbon dioxide, total [Moles /volume] in Central venous bloodOrdered By: Melissa Reed on 10-03-2024 CO2 [Moles/Vol] 27.9 mmol/L 21.0-32.0 [facility] Chloride assayOrdered By: Sd Reed on 10-03-2024 Chloride [Moles/Vol] 102 mmol/L 98-108 [facility] GFR/1.73 sq M.predicted denise g non-blacks MDRD (S/P/Bld) [Vol rate/Area]Ordered By: Melissa Reed on 10-03-2024 Estimated GFR (MDRD) Non-Af Amer 52 Low >60 [facility] Comment on above: mL/min/1.73m2 CKD-EP I Creatinine Equation (2020) Hemoglobin A1con 10-03-2024 HbA1c (Bld) [Mass fraction] 5.9 % High <=5.6 [facility] Comment on above: Order Comment: CLEAN CATCH Result Comment: Norm al < 5.7 % Prediabetic 5.7 - 6.4 % Diabetic >or= 6.5 % Please note range changes. Performed By: #### M 100.2200, [id number] #### [facility] [address] [place], [address] Hemoglobin A1c percentageOrd ered By: Melissa Reed on 10-03-2024 HbA1c (Bld) [Mass fraction] 5.9 % High <5.7 [facility] Comment on above: Normal < 5.7 % Predi abetic 5.7 - 6.4 % Diabetic >or= 6.5 % Please note range changes. Magnesiumon 10-03-2024 Magnesium [Mass/Vol] 2.2 mg/dL Normal 1.5-2.2 [facility] Comment on above: Order Comment: CLEAN CATCH Performed By: #### M 100.2200, [id number] #### [facility] [address] [place], [address] Magnesium (Unsp spec) [Mass/ Vol]Ordered By: Melissa Reed on 10-03-2024 Magnesium [Mass/Vol] 2.2 mg/dL 1.5-2.2 [facility] Potassium (Unsp spec) [Mass/ Vol]Ordered By: Melissa Reed on 10-03-2024 Potassium [Moles/Vol] 3.8 mmol/L 3.3-5.1 [facility] Serum creatinine measurement (mass/volume)Ordered By: Melissa Reed on 10-03-2024 Creatinine [Mass/Vol] 1.08 mg/dL 0.70-1.20 [facility] Serum glucose measurement (m ass/volume)Ordered By: Melissa Reed on 10-03-2024 Glucose [Mass/Vol] 179 mg/dL High 70-99 [facility] Serum or plasma calcium danae urement (mass/volume)Ordered By: Melissa Reed on 10-03-2024 Calcium [Mass/Vol] 8.7 mg/dL 7.6-11.0 [facility] Serum or plasma urea nitroge n measurement (mass/volume)Ordered By: Melissa Reed on 10-03-2024 Urea nitrogen [Mass/Vol] 26 mg/dL High 4-19 [facility] Sodium levelOrdered By: Rubin Reed on 10-03-2024 Sodium [Moles/Vol] 139 mmol/L 133-145 [facility] Urine Cultureon 09-26-2024 [facility] Results called on 09/26/24-1126 by MARYLOU to [facility] (RIZWAN) . Copy of report sent to Infection Control Printer [id number] 09/25/24 1616 ASNIPES. ESBL Escherichia coli Reddick Count 25,000-50,000 MARKER ESBL producing OrganismA MARKER ESBL producing OrganismA Ampicillin Islt LAVINIA >=32 R Ampicillin+Sulbac Islt LAVINIA >=32 Cefepime Islt LAVINIA >=32 R cefTRIAXone Islt LAVINIA >=64 R Ciprofloxacin Islt LAVINIA >=4 R B-Lactamase Extended Susc Islt POS Gentamicin Islt LAVINIA <=1 S levoFLOXacin Islt LAVINIA >=8 R Meropenem Islt LAVINIA <=0.25 S Nitrofurantoin Islt LAVINIA <=16 S Pip+Tazo Islt LAVINIA >=128 R TMP SMX Islt LAVINIA >=320 R ESBL Escherichia coli: REACTION Amikacin Islt LAVINIA <=1 S Eravacycline Islt LAVINIA <=0.12 Imipenem Islt LAVINIA <=0.25 S Tobramycin Islt LAVINIA <=1 S Normal [facility] Comment on above: Performed By: #### M 100.2200, [id number] #### [facility] [address] [place] [address], [id number] Bacteria LM.HPF (Urine sed) [#/Area]Ordered By: Melissa Reed on 09-23-2024 Urine Bacteria RARE /hpf None Seen [facility] Bilirubin Test strip Ql (U)O rdered By: Melissa Reed on 09-23-2024 Bilirubin Ql (U) Negative Negative [facility] Epithelial cells.squamous LM Ql (Urine sed)Ordered By: Melissa Reed on 09-23-2024 Epithelial cells.squamous LM.HPF (Urine sed) [#/Area] 0 /[HPF] 5-10 [facility] Glucose Ql (U)Ordered By: Sd Reed on 09-23-2024 Urine Glucose (UA) Normal mg/dl Normal [facility] Ketones Test strip Ql (U)Ord ered By: Melissa Reed on 09-23-2024 Ketones Ql (U) Negative Negative [facility] Microscopic analysis of urin e for red blood cells (RBC)Ordered By: Melissa Reed on 09-23-2024 Urine RBC 0 SEEN /hpf 0-5 [facility] Mucus LM Ql (Urine sed)Order ed By: Melissa Reed on 09-23-2024 Mucus Ql (Urine sed) 0 SEEN /hpf [facility] Nitrite Test strip Ql (U)Ord ered By: Melissa Reed on 09-23-2024 Nitrite Ql (U) Negative Negative [facility] Protein Test strip Ql (U)Ord ered By: Melissa Reed on 09-23-2024 Protein Ql (U) 30 mg/dl High Negative [facility] Urinalysis, Completeon 09-23 BACTERIA RARE Normal None Seen [facility] Comment on above: Order Comment: CLEAN CATCH Performed By: #### M 100.2200, [id number] #### [facility] [address] [place], [address] EPI,SQUAMOUS 0-5 SEEN Normal 5-10 [facility] Comment on above: Order Comment: CLEAN CATCH Performed By: #### M 100.2200, [id number] #### [facility] [address] [place], [address] WBC 50-100 SEEN Normal 0-5 [facility] Comment on above: Order Comment: CLEAN CATCH Performed By: #### M 100.2200, [id number] #### [facility] [address] [place], [address] Mucus Ql (Urine sed) 0 SEEN Normal [facility] Comment on above: Order Comment: CLEAN CATCH Performed By: #### M 100.2200, [id number] #### [facility] [address] [place], [address] RBC 0 SEEN Normal 0-5 [facility] Comment on above: Order Comment: CLEAN CATCH Performed By: #### M 100.2200, [id number] #### [facility] [address] [place], [address] Urine blood detectionOrdered By: Melissa Reed on 09-23-2024 Urine Occult Blood 25 /ul High Negative [facility] Urine clarityOrdered By: Lillian Reed on 09-23-2024 Clarity (U) Sl. Cloudy Clear [facility] Urine color determinationOrd ered By: Melissa Reed on 09-23-2024 Color (U) Yellow Yellow [facility] Urine cultureOrdered By: Lillian Reed on 09-23-2024 Bacteria identified Cx Nom (U) ESBL Escherichia coli Abnormal [facility] Urine leukocyte esterase det ection by dipstickOrdered By: Melissa Reed on 09-23-2024 Leukocyte esterase Test strip Ql (U) 500 /ul High Negative [facility] Urine pHOrdered By: Melissa Heaton udla on 09-23-2024 pH (U) 6.0 [pH] 5.0 - 8.0 [facility] Urine specific gravity measu rementOrdered By: Melissa Reed on 09-23-2024 Specific gravity (U) [Rel density] 1.015 1.002-1.030 [facility] Urobilinogen Ql (U)Ordered B y: Melissa Reed on 09-23-2024 Urine Urobilinogen Normal mg/dl Normal [facility] White blood cell countOrdere d By: Melissa Reed on 09-23-2024 Urine WBC 50-100 SEEN /hpf 0-5 [facility] Anion gap in Serum or Plasma Ordered By: Melissa Reed on 09-19-2024 Anion gap [Moles/Vol] 9 mmol/L 5-15 [facility] BUN/creatinine ratioOrdered By: Melissa Reed on 09-19-2024 Urea nitrogen/Creatinine [Mass ratio] 30.0 mg/mg High 10-20 [facility] Basic Metabolic Profile (BMP )on 09-19-2024 BUN/CRE 30.0 RATIO High 10-20 [facility] Comment on above: Order Comment: 157 Performed By: #### L 394.0957, L520.7687, L500.2500, L100.0500 #### [facility] [address] [place] [address]. [place], [place], [id number] Calcium [Mass/Vol] 8.6 mg/dL Normal 7.6-11.0 [facility] Comment on above: Order Comment: 157 Performed By: #### L [id number], [id number], L500.2500, L100.0500 #### [facility] [address] [place], [address] Chloride [Moles/Vol] 103 mmol/L Normal 98-108 [facility] Comment on above: Order Comment: 157 Performed By: #### L [id number], [id number], L500.2500, L100.0500 #### [facility] [address] [place], [address] CO2 [Moles/Vol] 27.2 mmol/L Normal 21.0-32.0 [facility] Comment on above: Order Comment: 157 Performed By: #### L [id number], [id number], L500.2500, L100.0500 #### [facility] [address] [place], [address] Creatinine [Mass/Vol] 1.13 mg/dL Normal 0.70-1.20 [facility] Comment on above: Order Comment: 157 Performed By: #### L [id number], [id number], L500.2500, L100.0500 #### [facility] [address] [place], [address] GAP 9 Normal 5-15 [facility] Comment on above: Order Comment: 157 Performed By: #### L [id number], [id number], L500.2500, L100.0500 #### [facility] [address] [place], [address] GFR/1.73 sq M.predicted among non-blacks MDRD (S/P/Bld) [Vol rate/Area] 49 mL/min/{1.73_m2} Low >60 [facility] Comment on above: Order Comment: 157 Result Comment: mL/m in/1.73m2 CKD-EPI Creatinine Equation (2020) Performed By: #### L [id number], [id number], L500.2500, L100.0500 #### [facility] [address] [place], [address] Glucose [Mass/Vol] 165 mg/dL High 70-99 [facility] Comment on above: Order Comment: 157 Performed By: #### L [id number], [id number], L500.2500, L100.0500 #### [facility] [address] [place], [address] Potassium [Moles/Vol] 4.0 mmol/L Normal 3.3-5.1 [facility] Comment on above: Order Comment: 157 Performed By: #### L [id number], [id number], L500.2500, L100.0500 #### [facility] [address] [place], [address] Sodium [Moles/Vol] 140 mmol/L Normal 133-145 [facility] Comment on above: Order Comment: 157 Performed By: #### L [id number], [id number], L500.2500, L100.0500 #### [facility] [address] [place], [address] Urea nitrogen [Mass/Vol] 34 mg/dL High 4-19 [facility] Comment on above: Order Comment: 157 Performed By: #### L [id number], [id number], L500.2500, L100.0500 #### [facility] [address] [place], [address] Carbon dioxide, total [Moles /volume] in Central venous bloodOrdered By: Melissa Reed on 09-19-2024 CO2 [Moles/Vol] 27.2 mmol/L 21.0-32.0 [facility] Chloride assayOrdered By: Sd Reed on 09-19-2024 Chloride [Moles/Vol] 103 mmol/L 98-108 [facility] GFR/1.73 sq M.predicted denise g non-blacks MDRD (S/P/Bld) [Vol rate/Area]Ordered By: Melissa Reed on 09-19-2024 Estimated GFR (MDRD) Non-Af Amer 49 Low >60 [facility] Comment on above: mL/min/1.73m2 CKD-EP I Creatinine Equation (2020) Magnesiumon 09-19-2024 Magnesium [Mass/Vol] 2.2 mg/dL Normal 1.5-2.2 [facility] Comment on above: Order Comment: 157 Performed By: #### L [id number], [id number], L500.2500, L100.0500 #### [facility] [address] [place], [address] Magnesium (Unsp spec) [Mass/ Vol]Ordered By: Melissa Reed on 09-19-2024 Magnesium [Mass/Vol] 2.2 mg/dL 1.5-2.2 [facility] Potassium (Unsp spec) [Mass/ Vol]Ordered By: Melissa Reed on 09-19-2024 Potassium [Moles/Vol] 4.0 mmol/L 3.3-5.1 [facility] Serum creatinine measurement (mass/volume)Ordered By: Melissa Reed on 09-19-2024 Creatinine [Mass/Vol] 1.13 mg/dL 0.70-1.20 [facility] Serum glucose measurement (m ass/volume)Ordered By: Melissa Reed on 09-19-2024 Glucose [Mass/Vol] 165 mg/dL High 70-99 [facility] Serum or plasma calcium danae urement (mass/volume)Ordered By: Melissa Reed on 09-19-2024 Calcium [Mass/Vol] 8.6 mg/dL 7.6-11.0 [facility] Serum or plasma urea nitroge n measurement (mass/volume)Ordered By: Melissa Reed on 09-19-2024 Urea nitrogen [Mass/Vol] 34 mg/dL High 4-19 [facility] Sodium levelOrdered By: Rubin bethany Millskasidiony on 09-19-2024 Sodium [Moles/Vol] 140 mmol/L 133-145 [facility] Urine Cultureon 09-19-2024 [facility] REPOR T ESCHERICHIA COLI mCIM NEGATIVE Carbapenemase Molecular Detection IMP GENE NOT DETECTED KPC GENE NOT DETECTED NDM GENE NOT DETECTED OXA-23-LIKE GENE NOT DETECTED OXA-24/40 LIKE GENE NOT DETECTED OXA-48 LIKE GENE NOT DETECTED OXA-58 LIKE GENE NOT DETECTED VIM GENE NOT DETECTED Urine Culture RESULTS INDICATE THAT RESISTANCE TO CARBAPENEM IS LIKELY DUE TO AmpC/ESBL BETA-LACTAMASE IN COMBINATION WITH PORIN LOSS AND/OR EFFLUX. Urine Culture RESULTS CALLED TO TONI Johnson 09/10/24 1042 Dora Platt. REPORT READ BACK . Urine Culture Copy of report sent to Infection Control Printer [id number] 09/08/24 0701 MARYLOU. ESBL Escherichia coli Reddick Count >100,000 MARKER Possible Carbapenemase producing EnterobacteriaceaeA MARKER Possible Carbapenemase producing EnterobacteriaceaeA Ampicillin Islt LAVINIA >=32 R Ampicillin+Sulbac Islt LAVINIA >=32 Cefepime Islt LAVINIA >=32 R cefTRIAXone Islt LAVINIA >=64 R Ciprofloxacin Islt LAVINIA >=4 R B-Lactamase Extended Susc Islt POS Gentamicin Islt LAVINIA <=1 S levoFLOXacin Islt LAVINIA >=8 R Meropenem Islt LAVINIA <=0.25 S Nitrofurantoin Islt LAVINIA <=16 S Pip+Tazo Islt LAVINIA >=128 R TMP SMX Islt LAVINIA >=320 R ESBL Escherichia coli: REACTION Amikacin Islt LAVINIA <=1 S Eravacycline Islt LAVINIA <=0.12 Imipenem Islt LAVINIA <=0.25 S Tobramycin Islt LAVINIA <=1 S Normal [facility] Comment on above: Performed By: #### L [id number], [id number], L500.2500, L100.0500 #### [facility] [address] [place], [place], [id number] Urinalysis, Completeon 09-06 EPI,TRANSITION 0-5 SEEN Normal 0-5 [facility] Comment on above: Order Comment: 157 Performed By: #### L [id number], [id number], L500.2500, L100.0500 #### [facility] [address] [place], [address] BACTERIA 3+ /hpf Normal None Seen [facility] Comment on above: Order Comment: 157 Performed By: #### L [id number], [id number], L500.2500, L100.0500 #### [facility] [address] [place], [address] EPI,SQUAMOUS 5-10 SEEN Normal 5-10 [facility] Comment on above: Order Comment: 157 Performed By: #### L [id number], [id number], L500.2500, L100.0500 #### [facility] [address] [place], [address] RBC 0-5 SEEN Normal 0-5 [facility] Comment on above: Order Comment: 157 Performed By: #### L [id number], [id number], L500.2500, L100.0500 #### [facility] [address] [place], [address] WBC 25-50 SEEN Normal 0-5 [facility] Comment on above: Order Comment: 157 Performed By: #### L [id number], [id number], L500.2500, L100.0500 #### [facility] [address] [place], [address] Mucus Ql (Urine sed) 0 SEEN Normal [facility] Comment on above: Order Comment: 157 Performed By: #### L [id number], [id number], L500.2500, L100.0500 #### [facility] [address] [place], [address] Bilirubin Test strip Ql (U)O rdered By: Melissa Reed on 09-05-2024 Bilirubin Ql (U) Negative Negative [facility] Epithelial cells.squamous LM Ql (Urine sed)Ordered By: Melissa Reed on 09-05-2024 Epithelial cells.squamous LM.HPF (Urine sed) [#/Area] 5 /[HPF] 5-10 [facility] Glucose Ql (U)Ordered By: Sd Reed on 09-05-2024 Urine Glucose (UA) Normal mg/dl Normal [facility] Ketones Test strip Ql (U)Ord ered By: Melissa Reed on 09-05-2024 Ketones Ql (U) Negative Negative [facility] Microscopic analysis of urin e for red blood cells (RBC)Ordered By: Melissa Reed on 09-05-2024 Urine RBC 0-5 SEEN /hpf 0-5 [facility] Mucus LM Ql (Urine sed)Order ed By: Melissa Reed on 09-05-2024 Mucus Ql (Urine sed) 0 SEEN /hpf [facility] Nitrite Test strip Ql (U)Ord ered By: Melissa Reed on 09-05-2024 Nitrite Ql (U) Positive High Negative [facility] Protein Test strip Ql (U)Ord ered By: Melissa Reed on 09-05-2024 Protein Ql (U) 30 mg/dl High Negative [facility] Transitional cells LM Ql (Ur ine sed)Ordered By: Melissa Reed on 09-05-2024 Urine Transitional Epithelial Cells 0-5 SEEN /hpf 0-5 [facility] Urine blood detectionOrdered By: Melissa Reed on 09-05-2024 Urine Occult Blood 10 /ul High Negative [facility] Urine clarityOrdered By: Lillian Reed on 09-05-2024 Clarity (U) Sl. Cloudy Clear [facility] Urine color determinationOrd ered By: Melissa Reed on 09-05-2024 Color (U) Yellow Yellow [facility] Urine cultureOrdered By: Lillian Reed on 09-05-2024 Bacteria identified Cx Nom (U) ESBL Escherichia coli Abnormal [facility] Urine leukocyte esterase det ection by dipstickOrdered By: Melissa Reed on 09-05-2024 Leukocyte esterase Test strip Ql (U) 500 /ul High Negative [facility] Urine pHOrdered By: Melissa kerr on 09-05-2024 pH (U) 6.5 [pH] 5.0 - 8.0 [facility] Urine sediment bacteria coun t by microscopy (number/high power field)Ordered By: Melissa Reed on 09-05-2024 Bacteria LM.HPF (Urine sed) [#/Area] 3 /[HPF] None Seen [facility] Urine specific gravity measu rementOrdered By: Melissa Reed on 09-05-2024 Specific gravity (U) [Rel density] 1.015 1.002-1.030 [facility] Urobilinogen Ql (U)Ordered B y: Melissa Reed on 09-05-2024 Urine Urobilinogen Normal mg/dl Normal [facility] White blood cell countOrdere d By: Melissa Reed on 09-05-2024 Urine WBC 25-50 SEEN /hpf 0-5 [facility] Anion gap in Serum or Plasma Ordered By: Melissa Reed on 08-22-2024 Anion gap [Moles/Vol] 11 mmol/L 5-15 [facility] BUN/creatinine ratioOrdered By: Melissa Reed on 08-22-2024 Urea nitrogen/Creatinine [Mass ratio] 21.6 mg/mg High [facility] Basic Metabolic Profile (BMP )on 08-22-2024 BUN/CRE 21.6 RATIO High [facility] Comment on above: Performed By: #### L [id number], L500.2500 #### [facility] [address] [place], [address] Calcium [Mass/Vol] 8.8 mg/dL Normal 7.6-11.0 [facility] Comment on above: Performed By: #### L [id number], L500.2500 #### [facility] [address] [place], [address] Chloride [Moles/Vol] 103 mmol/L Normal 98-108 [facility] Comment on above: Performed By: #### L [id number], L500.2500 #### [facility] [address] [place], [address] CO2 [Moles/Vol] 24.4 mmol/L Normal 21.0-32.0 [facility] Comment on above: Performed By: #### L [id number], L500.2500 #### [facility] [address] [place], [address] Creatinine [Mass/Vol] 1.14 mg/dL Normal 0.70-1.20 [facility] Comment on above: Performed By: #### L [id number], L500.2500 #### [facility] [address] [place], [address] GAP 11 Normal 5-15 [facility] Comment on above: Performed By: #### L [id number], L500.2500 #### [facility] [address] [place], [address] GFR/1.73 sq M.predicted among non-blacks MDRD (S/P/Bld) [Vol rate/Area] 49 mL/min/{1.73_m2} Low >60 [facility] Comment on above: Result Comment: mL/m in/1.73m2 CKD-EPI Creatinine Equation (2020) Performed By: #### L [id number], L500.2500 #### [facility] [address] [place], [address] Glucose [Mass/Vol] 104 mg/dL High 70-99 [facility] Comment on above: Performed By: #### L 501.5200, L500.2500 #### [facility] [facility] [address] [place], [address] Potassium [Moles/Vol] 4.1 mmol/L Normal 3.3-5.1 [facility] Comment on above: Result Comment: Hemo lysis present, Results??could be affected. ?? Performed By: #### L 501.5200, L500.2500 #### [facility] [address] [place], [address] Sodium [Moles/Vol] 138 mmol/L Normal 133-145 [facility] Comment on above: Performed By: #### L 501.5200, L500.2500 #### [facility] [address] [place], [address] Urea nitrogen [Mass/Vol] 25 mg/dL High 4-19 [facility] Comment on above: Performed By: #### L 501.5200, L500.2500 #### [facility] [address] [place], [address] Carbon dioxide, total [Moles /volume] in Central venous bloodOrdered By: Melissa Reed on 08-22-2024 CO2 [Moles/Vol] 24.4 mmol/L 21.0-32.0 [facility] Chloride assayOrdered By: Sd Reed on 08-22-2024 Chloride [Moles/Vol] 103 mmol/L 98-108 [facility] GFR/1.73 sq M.predicted denise g non-blacks MDRD (S/P/Bld) [Vol rate/Area]Ordered By: Melissa Reed on 08-22-2024 Estimated GFR (MDRD) Non-Af Amer 49 Low >60 [facility] Comment on above: mL/min/1.73m2 CKD-EP I Creatinine Equation (2020) Magnesiumon 08-22-2024 Magnesium [Mass/Vol] 2.3 mg/dL High 1.5-2.2 [facility] Comment on above: Performed By: #### L 501.5200, L500.2500 #### [facility] [address] [place], [address] Magnesium (Unsp spec) [Mass/ Vol]Ordered By: Melissa Reed on 08-22-2024 Magnesium [Mass/Vol] 2.3 mg/dL High 1.5-2.2 [facility] Potassium (Unsp spec) [Mass/ Vol]Ordered By: Melissa Reed on 08-22-2024 Potassium [Moles/Vol] 4.1 mmol/L 3.3-5.1 [facility] Comment on above: Hemolysis present, R esults could be affected. Serum creatinine measurement (mass/volume)Ordered By: Melissa Reed on 08-22-2024 Creatinine [Mass/Vol] 1.14 mg/dL 0.70-1.20 [facility] Serum glucose measurement (m ass/volume)Ordered By: Melissa Reed on 08-22-2024 Glucose [Mass/Vol] 104 mg/dL High 70-99 [facility] Serum or plasma calcium danae urement (mass/volume)Ordered By: Melissa Reed on 08-22-2024 Calcium [Mass/Vol] 8.8 mg/dL 7.6-11.0 [facility] Serum or plasma urea nitroge n measurement (mass/volume)Ordered By: Melissa Reed on 08-22-2024 Urea nitrogen [Mass/Vol] 25 mg/dL High 4-19 [facility] Sodium levelOrdered By: Rubin Reed on 08-22-2024 Sodium [Moles/Vol] 138 mmol/L 133-145 [facility] Urine Cultureon 08-10-2024 [facility] Copy of report sent to Infection Control Printer [id number] 08/10/24 0702 MARYLOU. ESBL Escherichia coli Reddick Count 80,000-100,000 ESBL Escherichia coli: REACTION Ampicillin Islt LAVINIA >=32 Ampicillin+Sulbac Islt LAVINIA >=32 R Cefepime Islt LAVINIA >=32 R cefTRIAXone Islt LAVINIA >=64 R Ciprofloxacin Islt LAVINIA >=4 R B-Lactamase Extended Susc Islt POS Gentamicin Islt LAVINIA <=1 S levoFLOXacin Islt LAVINIA >=8 R Meropenem Islt LAVINIA <=0.25 S Nitrofurantoin Islt LAVINIA <=16 S Pip+Tazo Islt LAVINIA 64 R TMP SMX Islt LAVINIA >=320 R ESBL Escherichia coli: REACTION Amikacin Islt LAVINIA 2 Eravacycline Islt LAVINIA <=0.12 S Imipenem Islt LAVINIA <=0.25 S Tobramycin Islt LAVINIA <=1 S Normal [facility] Comment on above: Performed By: #### L 500.2500, L501.5200 #### [facility] [address] [place], [address] Basic Metabolic Profile (BMP )on 08-08-2024 BUN/CRE 27.6 RATIO High 10-20 [facility] Comment on above: Performed By: #### L 500.2500, L501.5200 #### [facility] [address] [place], [address] CA,Total 8.6 mg/dL Normal 8.5-10.1 [facility] Comment on above: Performed By: #### L 500.2500, L501.5200 #### [facility] [address] [place], [address] Chloride [Moles/Vol] 103 mmol/L Normal 98-107 [facility] Comment on above: Performed By: #### L 500.2500, L501.5200 #### [facility] [address] [place], [address] CO2 [Moles/Vol] 31.0 mmol/L Normal 21.0-32.0 [facility] Comment on above: Performed By: #### L 500.2500, L501.5200 #### [facility] [address] [place], [address] Creatinine [Mass/Vol] 1.23 mg/dL High 0.55-1.02 [facility] Comment on above: Result Comment: The validity of the calculated GFR GFRAA in patients over 70 years has not been determined. Clinical correlation is essential. Performed By: #### L 500.2500, L501.5200 #### [facility] [address] [place], [address] EST GFR - AA 54 mL/min Low >60 [facility] Comment on above: Result Comment: Afri can Thai GFR Calc Performed By: #### L 500.2500, L501.5200 #### [facility] [address] [place], [address] GAP 4 Low 5-15 [facility] Comment on above: Performed By: #### L 500.2500, L501.5200 #### [facility] [address] [place], [address] GFR/1.73 sq M.predicted among non-blacks MDRD (S/P/Bld) [Vol rate/Area] 45 mL/min/{1.73_m2} Low >60 [facility] Comment on above: Result Comment: Non- GFR Calc Performed By: #### L 500.2500, L501.5200 #### [facility] [address] [place], [address] Glucose [Mass/Vol] 192 mg/dL High 74-106 [facility] Comment on above: Result Comment: Fast ing Glucose result greater than or equal to 126 mg/dL suggests DIABETES MELLITUS per A.D.A. criteria. Performed By: #### L 500.2500, L501.5200 #### [facility] [address] [place], [address] Potassium [Moles/Vol] 4.1 mmol/L Normal 3.5-5.1 [facility] Comment on above: Performed By: #### L 500.2500, L501.5200 #### [facility] [address] [place], [address] Sodium [Moles/Vol] 138 mmol/L Normal 136-145 [facility] Comment on above: Performed By: #### L 500.2500, [id number] #### [facility] [address] [place], [address] Urea nitrogen [Mass/Vol] 34 mg/dL High 7-18 [facility] Comment on above: Performed By: #### L 500.2500, L501.5200 #### [facility] [address] [place], [address] Blood urea nitrogen (BUN)/cr eatinine ratioOrdered By: Melissa Reed on 08-08-2024 Urea nitrogen/Creatinine [Mass ratio] 27.6 mg/mg High 10-20 [facility] Carbon dioxide measurementOr dered By: Melissa Reed on 08-08-2024 CO2 [Moles/Vol] 31.0 mmol/L 21.0-32.0 [facility] Chloride measurementOrdered By: Melissa Reed on 08-08-2024 Chloride [Moles/Vol] 103 mmol/L 98-107 [facility] Estimated glomerular filtrat ion rate (GFR) AmericanOrdered By: Melissa Reed on 08-08-2024 Estimated GFR (MDRD) Amer 54 mL/min Low >60 [facility] Comment on above: GFR Calc Glomerular filtration rate ( GFR) estimationOrdered By: Melissa Reed on 08-08-2024 Estimated GFR (MDRD) Non-Af Amer 45 mL/min Low >60 [facility] Comment on above: Non- GFR Calc Glucose measurementOrdered B y: Melissa Reed on 08-08-2024 Glucose [Mass/Vol] 192 mg/dL High 74-106 [facility] Comment on above: Fasting Glucose resu lt greater than or equal to 126 mg/dL suggests DIABETES MELLITUS per A.D.A. criteria. Magnesiumon 08-08-2024 Magnesium [Mass/Vol] 2.2 mg/dL Normal 1.6-2.6 [facility] Comment on above: Performed By: #### L 500.2500, L501.5200 #### [facility] [address] [place], [address] Magnesium measurementOrdered By: Melissa Reed on 08-08-2024 Magnesium [Mass/Vol] 2.2 mg/dL 1.6-2.6 [facility] Potassium measurementOrdered By: Melissa Reed on 08-08-2024 Potassium [Moles/Vol] 4.1 mmol/L 3.5-5.1 [facility] Serum anion gap measurementO rdered By: Melissa Reed on 08-08-2024 Anion gap [Moles/Vol] 4 mmol/L Low 5-15 [facility] Serum or plasma calcium danae urement (mass/volume)Ordered By: Melissa Reed on 08-08-2024 Calcium [Mass/Vol] 8.6 mg/dL 8.5-10.1 [facility] Serum or plasma creatinine m easurement (mass/volume)Ordered By: Melissa Reed on 08-08-2024 Creatinine [Mass/Vol] 1.23 mg/dL High 0.55-1.02 [facility] Comment on above: The validity of the calculated GFR & GFRAA in patients over 70 years has not been determined. Clinical correlation is essential. Serum or plasma urea nitroge n measurement (mass/volume)Ordered By: Melissa Reed on 08-08-2024 Urea nitrogen [Mass/Vol] 34 mg/dL High 7-18 [facility] Sodium levelOrdered By: Rubin Reed on 08-08-2024 Sodium [Moles/Vol] 138 mmol/L 136-145 [facility] Urinalysis, Completeon 08-07 BACTERIA 4+ /hpf Normal None Seen [facility] Comment on above: Order Comment: CLEAN CATCH Performed By: #### L 500.2500, L501.5200 #### [facility] [address] [place], [address] EPI,SQUAMOUS 0-5 SEEN Normal 5-10 [facility] Comment on above: Order Comment: CLEAN CATCH Performed By: #### L 500.2500, L501.5200 #### [facility] [address] [place], [address] RBC 0-5 SEEN Normal 0-5 [facility] Comment on above: Order Comment: CLEAN CATCH Performed By: #### L 500.2500, L501.5200 #### [facility] [address] [place], [address] WBC 10-25 SEEN Normal 0-5 [facility] Comment on above: Order Comment: CLEAN CATCH Performed By: #### L 500.2500, L501.5200 #### [facility] [address] [place], [address] Mucus Ql (Urine sed) 0 SEEN Normal [facility] Comment on above: Order Comment: CLEAN CATCH Performed By: #### L 500.2500, L501.5200 #### [facility] [address] [place], [address] Bilirubin Test strip Ql (U)O rdered By: Melissa Reed on 08-06-2024 Bilirubin Ql (U) Negative Negative [facility] Epithelial cells.squamous LM Ql (Urine sed)Ordered By: Melissa Reed on 08-06-2024 Epithelial cells.squamous LM.HPF (Urine sed) [#/Area] 0 /[HPF] 5-10 [facility] Glucose Ql (U)Ordered By: Sd Reed on 08-06-2024 Urine Glucose (UA) Normal mg/dl Normal [facility] Ketones Test strip Ql (U)Ord ered By: Melissa Reed on 08-06-2024 Ketones Ql (U) Negative Negative [facility] Microscopic analysis of urin e for red blood cells (RBC)Ordered By: Melissa Reed on 08-06-2024 Urine RBC 0-5 SEEN /hpf 0-5 [facility] Mucus LM Ql (Urine sed)Order ed By: Melissa Reed on 08-06-2024 Mucus Ql (Urine sed) 0 SEEN /hpf [facility] Nitrite Test strip Ql (U)Ord ered By: Melissa Reed on 08-06-2024 Nitrite Ql (U) Positive High Negative [facility] Protein Test strip Ql (U)Ord ered By: Melissa Reed on 08-06-2024 Protein Ql (U) Negative Negative [facility] Urine blood detectionOrdered By: Melissa Reed on 08-06-2024 Urine Occult Blood Negative Negative [facility] Urine clarityOrdered By: Lillian Reed on 08-06-2024 Clarity (U) Cloudy Clear [facility] Urine color determinationOrd ered By: Melissa Reed on 08-06-2024 Color (U) Yellow Yellow [facility] Urine cultureOrdered By: Lillian Reed on 08-06-2024 Bacteria identified Cx Nom (U) ESBL Escherichia coli Abnormal [facility] Urine leukocyte esterase det ection by dipstickOrdered By: Melissa Reed on 08-06-2024 Leukocyte esterase Test strip Ql (U) 500 /ul High Negative [facility] Urine pHOrdered By: Melissa Heaton udla on 08-06-2024 pH (U) 7.0 [pH] 5.0 - 8.0 [facility] Urine sediment bacteria coun t by microscopy (number/high power field)Ordered By: Melissa Reed on 08-06-2024 Bacteria LM.HPF (Urine sed) [#/Area] 4 /[HPF] None Seen [facility] Urine specific gravity measu rementOrdered By: Melissa Reed on 08-06-2024 Specific gravity (U) [Rel density] 1.010 1.002-1.030 [facility] Urobilinogen Ql (U)Ordered B y: Melissa Reed on 08-06-2024 Urine Urobilinogen Normal mg/dl Normal [facility] White blood cell countOrdere d By: Melissa Reed on 08-06-2024 Urine WBC 10-25 SEEN /hpf 0-5 [facility] Cerv Spine 2 or 3 Viewson Cerv Spine 2 or 3 Views [facility] Imaging Services [address] [place], [place] [id number] Cerv Spine 2 or 3 Views MR#: [id number] Acct: [id number] Name: RADHA SANDOVAL Eduardo Rep #: [id number] : 1945 F 78 From: Abner Castro DO PCP: Melissa Reed MD Status: REG CLI Study: Cerv Spine 2 or 3 Views Date of Exam: 07/31/24 Exam# [id number] Ordering Dr: Gypsy Argueta MD PROCEDURE: CERVICAL SPINE 2 VIEWS REASON FOR EXAM: Spondylosis. TECHNIQUE: 2 views of the cervical spine. COMPARISON: None. FINDINGS: There is mild chronic loss of the cervical vertebral body heights. There is reversal of the cervical lordosis. There is mild anterolisthesis of C2-C3, C3-C4, and C4-C5. There is mild retrolisthesis of C5-C6. Multilevel disc space narrowing with endplate spurring is identified and greatest at C5-C6. Prevertebral soft tissues are unremarkable. No acute fracture or subluxation is identified. Atlantodental interval is intact. RAD/Cerv Spine 2 or 3 Views IMPRESSION: 1. No acute cervical spine fracture. 2. Multilevel degenerative changes greatest at C5-C6. 3. Reversal of the cervical lordosis. Reading Location: [facility] CC: Dr. Gypsy Argueta MD; Melissa Reed MD Personal Banking Advisor: Signed [facility] Shoulder min 2 Viewson 07-31 Shoulder min 2 Views [facility] Imaging Services [address] [place] [id number] Shoulder min 2 Views MR#: [id number] Acct: [id number] Name: RADHA SANDOVAL Rep #: [id number] : 1945 F 78 From: Devendra Magallon PCP: Melissa Reed MD Status: REG CLI Study: Shoulder min 2 Views Date of Exam: 07/31/24 Exam# [id number] Ordering Dr: Gypsy Argueta MD PROCEDURE: Left shoulder radiographs REASON FOR EXAM: Pain TECHNIQUE: Four views of the left shoulder COMPARISON: None FINDINGS: See impression RAD/Shoulder min 2 Views IMPRESSION: Chronic fracture of the humeral neck with lateral plate/screw fixation hardware in place. Severe glenohumeral joint osteoarthritis. Negative for acute displaced fracture or dislocation. Acromioclavicular joint is intact. Reading Location: [facility] CC: Dr. Gypsy Argueta MD; Melissa Reed MD Personal Banking Advisor: Signed Normal [facility] Shoulder min 2 Views [facility] Imaging Services [address] [place] [address] Shoulder min 2 Views MR#: [id number] Acct: [id number] Name: RADHA SANDOVAL Rep #: [id number] : 1945 F 78 From: Devendra Magallon PCP: Melissa Reed MD Status: REG CLI Study: Shoulder min 2 Views Date of Exam: 07/31/24 Exam# [id number] Ordering Dr: Gypsy Argueta MD PROCEDURE: Right shoulder radiographs REASON FOR EXAM: Pain TECHNIQUE: Five views of the right shoulder COMPARISON: None. FINDINGS: See impression RAD/Shoulder min 2 Views IMPRESSION: Limited exam due to patient immobility. Negative for acute displaced fracture or dislocation. Probable severe glenohumeral joint osteoarthritis. Acromioclavicular joint is intact. Reading Location: [facility] CC: Dr. Gypsy Argueta MD; Melissa Reed MD Personal Banking Advisor: Signed Normal [facility] Basic Metabolic Profile (BMP )on 07-25-2024 BUN/CRE 26.7 RATIO High 10-20 [facility] Comment on above: Order Comment: CLEAN CATCH Performed By: #### M 100.2200, L400.0001 #### [facility] [address] [place], [address] CA,Total 9.1 mg/dL Normal 8.5-10.1 [facility] Comment on above: Order Comment: CLEAN CATCH Performed By: #### M 100.2200, L400.0001 #### [facility] [address] [place], [address] Chloride [Moles/Vol] 103 mmol/L Normal 98-107 [facility] Comment on above: Order Comment: CLEAN CATCH Performed By: #### M 100.2200, L400.0001 #### [facility] [address] [place], [address] CO2 [Moles/Vol] 31.0 mmol/L Normal 21.0-32.0 [facility] Comment on above: Order Comment: CLEAN CATCH Performed By: #### M 100.2200, L400.0001 #### [facility] [address] [place], [address] Creatinine [Mass/Vol] 0.97 mg/dL Normal 0.55-1.02 [facility] Comment on above: Order Comment: CLEAN CATCH Result Comment: The validity of the calculated GFR GFRAA in patients over 70 years has not been determined. Clinical correlation is essential. Performed By: #### M 100.2200, L400.0001 #### [facility] [address] [place], [address] EST GFR - AA 71 mL/min Normal >60 [facility] Comment on above: Order Comment: CLEAN CATCH Result Comment: Afri can Thai GFR Calc Performed By: #### M 100.2200, L400.0001 #### [facility] [address] [place], [address] GAP 4 Low 5-15 [facility] Comment on above: Order Comment: CLEAN CATCH Performed By: #### M 100.2200, L400.0001 #### [facility] [address] [place], [address] GFR/1.73 sq M.predicted among non-blacks MDRD (S/P/Bld) [Vol rate/Area] 58 mL/min/{1.73_m2} Low >60 [facility] Comment on above: Order Comment: CLEAN CATCH Result Comment: Non- GFR Calc Performed By: #### M 100.2200, L400.0001 #### [facility] [address] [place], [address] Glucose [Mass/Vol] 120 mg/dL High 74-106 [facility] Comment on above: Order Comment: CLEAN CATCH Result Comment: Fast ing Glucose result from 100 to 125 mg/dL suggests IMPAIRED HOMEOSTASIS per A.D.A. criteria. Performed By: #### M 100.2200, L400.0001 #### [facility] [address] [place], [address] Potassium [Moles/Vol] 3.9 mmol/L Normal 3.5-5.1 [facility] Comment on above: Order Comment: CLEAN CATCH Performed By: #### M 100.2200, L400.0001 #### [facility] [address] [place], [address] Sodium [Moles/Vol] 138 mmol/L Normal 136-145 [facility] Comment on above: Order Comment: CLEAN CATCH Performed By: #### M 100.2200, L400.0001 #### [facility] [address] [place], [address] Urea nitrogen [Mass/Vol] 26 mg/dL High 7-18 [facility] Comment on above: Order Comment: CLEAN CATCH Performed By: #### M 100.2200, L400.0001 #### [facility] [address] [place], [address] Blood urea nitrogen (BUN)/cr eatinine ratioOrdered By: Melissa Reed on 07-25-2024 Urea nitrogen/Creatinine [Mass ratio] 26.7 mg/mg High 10-20 [facility] Carbon dioxide measurementOr dered By: Melissa Reed on 07-25-2024 CO2 [Moles/Vol] 31.0 mmol/L 21.0-32.0 [facility] Chloride measurementOrdered By: Melissa Reed on 07-25-2024 Chloride [Moles/Vol] 103 mmol/L 98-107 [facility] Estimated glomerular filtrat ion rate (GFR) AmericanOrdered By: Melissa Reed on 07-25-2024 Estimated GFR (MDRD) Amer 71 mL/min >60 [facility] Comment on above: GFR Calc Glomerular filtration rate ( GFR) estimationOrdered By: Melissa Reed on 07-25-2024 Estimated GFR (MDRD) Non-Af Amer 58 mL/min Low >60 [facility] Comment on above: Non- GFR Calc Glucose measurementOrdered B y: Melissa Reed on 07-25-2024 Glucose [Mass/Vol] 120 mg/dL High 74-106 [facility] Comment on above: Fasting Glucose resu lt from 100 to 125 mg/dL suggests IMPAIRED HOMEOSTASIS per A.D.A. criteria. Magnesiumon 07-25-2024 Magnesium [Mass/Vol] 2.2 mg/dL Normal 1.6-2.6 [facility] Comment on above: Order Comment: CLEAN CATCH Performed By: #### M 100.2200, [id number] #### [facility] [address] [place], [address] Magnesium measurementOrdered By: Melissa Reed on 07-25-2024 Magnesium [Mass/Vol] 2.2 mg/dL 1.6-2.6 [facility] Potassium measurementOrdered By: Melissa Reed on 07-25-2024 Potassium [Moles/Vol] 3.9 mmol/L 3.5-5.1 [facility] Serum anion gap measurementO rdered By: Melissa Reed on 07-25-2024 Anion gap [Moles/Vol] 4 mmol/L Low 5-15 [facility] Serum or plasma calcium danae urement (mass/volume)Ordered By: Melissa Reed on 07-25-2024 Calcium [Mass/Vol] 9.1 mg/dL 8.5-10.1 [facility] Serum or plasma creatinine m easurement (mass/volume)Ordered By: Melissa Reed on 07-25-2024 Creatinine [Mass/Vol] 0.97 mg/dL 0.55-1.02 [facility] Comment on above: The validity of the calculated GFR & GFRAA in patients over 70 years has not been determined. Clinical correlation is essential. Serum or plasma urea nitroge n measurement (mass/volume)Ordered By: Melissa Reed on 07-25-2024 Urea nitrogen [Mass/Vol] 26 mg/dL High 7-18 [facility] Sodium levelOrdered By: Rubin Reed on 07-25-2024 Sodium [Moles/Vol] 138 mmol/L 136-145 [facility] Basic Metabolic Profile (BMP )on 07-11-2024 BUN/CRE 30.4 RATIO High 10-20 [facility] Comment on above: Order Comment: CLEAN CATCH Performed By: #### M 100.2200, [id number] #### [facility] [address] [place], [address] CA,Total 9.0 mg/dL Normal 8.5-10.1 [facility] Comment on above: Order Comment: CLEAN CATCH Performed By: #### M 100.2200, [id number] #### [facility] [address] [place], [address] Chloride [Moles/Vol] 103 mmol/L Normal 98-107 [facility] Comment on above: Order Comment: CLEAN CATCH Performed By: #### M 100.2200, [id number] #### [facility] [address] [place], [address] CO2 [Moles/Vol] 32.0 mmol/L Normal 21.0-32.0 [facility] Comment on above: Order Comment: CLEAN CATCH Performed By: #### M 100.2200, L400.0001 #### [facility] [address] [place], [address] Creatinine [Mass/Vol] 0.86 mg/dL Normal 0.55-1.02 [facility] Comment on above: Order Comment: CLEAN CATCH Result Comment: The validity of the calculated GFR GFRAA in patients over 70 years has not been determined. Clinical correlation is essential. Performed By: #### M 100.2200, [id number] #### [facility] [address] [place], [address] EST GFR - AA 82 mL/min Normal >60 [facility] Comment on above: Order Comment: CLEAN CATCH Result Comment: Afri can Thai GFR Calc Performed By: #### M 100.2200, [id number] #### [facility] [address] [place], [address] GAP 5 Normal 5-15 [facility] Comment on above: Order Comment: CLEAN CATCH Performed By: #### M 100.2200, [id number] #### [facility] [address] [place], [address] GFR/1.73 sq M.predicted among non-blacks MDRD (S/P/Bld) [Vol rate/Area] 68 mL/min/{1.73_m2} Normal >60 [facility] Comment on above: Order Comment: CLEAN CATCH Result Comment: Non- GFR Calc Performed By: #### M 100.2200, [id number] #### [facility] [address] [place], [address] Glucose [Mass/Vol] 109 mg/dL High 74-106 [facility] Comment on above: Order Comment: CLEAN CATCH Result Comment: Fast ing Glucose result from 100 to 125 mg/dL suggests IMPAIRED HOMEOSTASIS per A.D.A. criteria. Performed By: #### M 100.2200, [id number] #### [facility] [address] [place], [address] Potassium [Moles/Vol] 4.1 mmol/L Normal 3.5-5.1 [facility] Comment on above: Order Comment: CLEAN CATCH Performed By: #### M 100.2200, [id number] #### [facility] [address] [place], [address] Sodium [Moles/Vol] 140 mmol/L Normal 136-145 [facility] Comment on above: Order Comment: CLEAN CATCH Performed By: #### M 100.2200, [id number] #### [facility] [address] [place], [address] Urea nitrogen [Mass/Vol] 26 mg/dL High 7-18 [facility] Comment on above: Order Comment: CLEAN CATCH Performed By: #### M 100.2200, [id number] #### [facility] [address] [place], [place], [id number] Blood urea nitrogen (BUN)/cr eatinine ratioOrdered By: Melissa Reed on 07-11-2024 Urea nitrogen/Creatinine [Mass ratio] 30.4 mg/mg High 10-20 [facility] Carbon dioxide measurementOr dered By: Melissa Reed on 07-11-2024 CO2 [Moles/Vol] 32.0 mmol/L 21.0-32.0 [facility] Chloride measurementOrdered By: Melissa Reed on 07-11-2024 Chloride [Moles/Vol] 103 mmol/L 98-107 [facility] Estimated glomerular filtrat ion rate (GFR) AmericanOrdered By: Melissa Reed on 07-11-2024 Estimated GFR (MDRD) Amer 82 mL/min >60 [facility] Comment on above: GFR Calc Glomerular filtration rate ( GFR) estimationOrdered By: Melissa Reed on 07-11-2024 Estimated GFR (MDRD) Non-Af Amer 68 mL/min >60 [facility] Comment on above: Non- GFR Calc Glucose measurementOrdered B y: Melissa Reed on 07-11-2024 Glucose [Mass/Vol] 109 mg/dL High 74-106 [facility] Comment on above: Fasting Glucose resu lt from 100 to 125 mg/dL suggests IMPAIRED HOMEOSTASIS per A.D.A. criteria. Magnesiumon 07-11-2024 Magnesium [Mass/Vol] 2.2 mg/dL Normal 1.6-2.6 [facility] Comment on above: Order Comment: 157 Performed By: #### M 100.2200, [id number] #### [facility] [address] [place], [place], [id number] Magnesium measurementOrdered By: Melissa Reed on 07-11-2024 Magnesium [Mass/Vol] 2.2 mg/dL 1.6-2.6 [facility] Potassium measurementOrdered By: Melissa Reed on 07-11-2024 Potassium [Moles/Vol] 4.1 mmol/L 3.5-5.1 [facility] Serum anion gap measurementO rdered By: Melissa Reed on 07-11-2024 Anion gap [Moles/Vol] 5 mmol/L 5-15 [facility] Serum or plasma calcium danae urement (mass/volume)Ordered By: Melissa Reed on 07-11-2024 Calcium [Mass/Vol] 9.0 mg/dL 8.5-10.1 [facility] Serum or plasma creatinine m easurement (mass/volume)Ordered By: Melissa Reed on 07-11-2024 Creatinine [Mass/Vol] 0.86 mg/dL 0.55-1.02 [facility] Comment on above: The validity of the calculated GFR & GFRAA in patients over 70 years has not been determined. Clinical correlation is essential. Serum or plasma urea nitroge n measurement (mass/volume)Ordered By: Melissa Reed on 07-11-2024 Urea nitrogen [Mass/Vol] 26 mg/dL High 7-18 [facility] Sodium levelOrdered By: Rubin Reed on 07-11-2024 Sodium [Moles/Vol] 140 mmol/L 136-145 [facility] Basic Metabolic Profile (BMP )on 06-27-2024 BUN/CRE 23.7 RATIO High 10-20 [facility] Comment on above: Order Comment: 157 Performed By: #### M 100.2200, [id number] #### [facility] [address] [place], [address] CA,Total 8.7 mg/dL Normal 8.5-10.1 [facility] Comment on above: Order Comment: 157 Performed By: #### M 100.2200, [id number] #### [facility] [address] [place], [address] Chloride [Moles/Vol] 105 mmol/L Normal 98-107 [facility] Comment on above: Order Comment: 157 Performed By: #### M 100.2200, [id number] #### [facility] [address] [place], [address] CO2 [Moles/Vol] 31.0 mmol/L Normal 21.0-32.0 [facility] Comment on above: Order Comment: 157 Performed By: #### M 100.2200, [id number] #### [facility] [address] [place], [address] Creatinine [Mass/Vol] 1.18 mg/dL High 0.55-1.02 [facility] Comment on above: Order Comment: 157 Result Comment: The validity of the calculated GFR GFRAA in patients over 70 years has not been determined. Clinical correlation is essential. Performed By: #### M 100.2200, [id number] #### [facility] [address] [place], [address] EST GFR - AA 57 mL/min Low >60 [facility] Comment on above: Order Comment: 157 Result Comment: Afri can Thai GFR Calc Performed By: #### M 100.2200, [id number] #### [facility] [address] [place], [address] GAP 4 Low 5-15 [facility] Comment on above: Order Comment: 157 Performed By: #### M 100.2200, [id number] #### [facility] [address] [place], [address] GFR/1.73 sq M.predicted among non-blacks MDRD (S/P/Bld) [Vol rate/Area] 47 mL/min/{1.73_m2} Low >60 [facility] Comment on above: Order Comment: 157 Result Comment: Non- GFR Calc Performed By: #### M 100.2200, [id number] #### [facility] [address] [place], [address] Glucose [Mass/Vol] 85 mg/dL Normal 74-106 [facility] Comment on above: Order Comment: 157 Performed By: #### M 100.2200, [id number] #### [facility] [address] [place], [address] Potassium [Moles/Vol] 3.8 mmol/L Normal 3.5-5.1 [facility] Comment on above: Order Comment: 157 Performed By: #### M 100.2200, [id number] #### [facility] [address] [place], [address] Sodium [Moles/Vol] 140 mmol/L Normal 136-145 [facility] Comment on above: Order Comment: 157 Performed By: #### M 100.2200, [id number] #### [facility] [address] [place], [address] Urea nitrogen [Mass/Vol] 28 mg/dL High 7-18 [facility] Comment on above: Order Comment: 157 Performed By: #### M 100.2200, [id number] #### [facility] [address] [place], [address] Blood urea nitrogen (BUN)/cr eatinine ratioOrdered By: Melissa Reed on 06-27-2024 Urea nitrogen/Creatinine [Mass ratio] 23.7 mg/mg High 10-20 [facility] Carbon dioxide measurementOr dered By: Melissa Reed on 06-27-2024 CO2 [Moles/Vol] 31.0 mmol/L 21.0-32.0 [facility] Chloride measurementOrdered By: Melissa Reed on 06-27-2024 Chloride [Moles/Vol] 105 mmol/L 98-107 [facility] Estimated glomerular filtrat ion rate (GFR) AmericanOrdered By: Melissa Reed on 06-27-2024 Estimated GFR (MDRD) Amer 57 mL/min Low >60 [facility] Comment on above: GFR Calc Glomerular filtration rate ( GFR) estimationOrdered By: Melissa Reed on 06-27-2024 Estimated GFR (MDRD) Non-Af Amer 47 mL/min Low >60 [facility] Comment on above: Non- GFR Calc Glucose measurementOrdered B y: Melissa Reed on 06-27-2024 Glucose [Mass/Vol] 85 mg/dL 74-106 [facility] Magnesiumon 06-27-2024 Magnesium [Mass/Vol] 2.2 mg/dL Normal 1.6-2.6 [facility] Comment on above: Order Comment: 157 Performed By: #### M 100.2200, [id number] #### [facility] [address] [place], [address] Magnesium measurementOrdered By: Melissa Reed on 06-27-2024 Magnesium [Mass/Vol] 2.2 mg/dL 1.6-2.6 [facility] Potassium measurementOrdered By: Melissa Reed on 06-27-2024 Potassium [Moles/Vol] 3.8 mmol/L 3.5-5.1 [facility] Serum anion gap measurementO rdered By: Melissa Reed on 06-27-2024 Anion gap [Moles/Vol] 4 mmol/L Low 5-15 [facility] Serum or plasma calcium danae urement (mass/volume)Ordered By: Melissa Reed on 06-27-2024 Calcium [Mass/Vol] 8.7 mg/dL 8.5-10.1 [facility] Serum or plasma creatinine m easurement (mass/volume)Ordered By: Melissa Reed on 06-27-2024 Creatinine [Mass/Vol] 1.18 mg/dL High 0.55-1.02 [facility] Comment on above: The validity of the calculated GFR & GFRAA in patients over 70 years has not been determined. Clinical correlation is essential. Serum or plasma urea nitroge n measurement (mass/volume)Ordered By: Melissa Reed on 06-27-2024 Urea nitrogen [Mass/Vol] 28 mg/dL High 7-18 [facility] Sodium levelOrdered By: Rubin bethany Millsnaz on 06-27-2024 Sodium [Moles/Vol] 140 mmol/L 136-145 [facility] Basic Metabolic Profile (BMP )on 06-13-2024 BUN/CRE 32.6 RATIO High 10-20 [facility] Comment on above: Performed By: #### L 500.2500, [id number] #### [facility] [address] [place], [address] CA,Total 8.7 mg/dL Normal 8.5-10.1 [facility] Comment on above: Performed By: #### L 500.2500, [id number] #### [facility] [address] [place], [address] Chloride [Moles/Vol] 105 mmol/L Normal 98-107 [facility] Comment on above: Performed By: #### L 500.2500, [id number] #### [facility] [address] [place], [address] CO2 [Moles/Vol] 28.0 mmol/L Normal 21.0-32.0 [facility] Comment on above: Performed By: #### L 500.2500, [id number] #### [facility] [address] [place], [address] Creatinine [Mass/Vol] 0.98 mg/dL Normal 0.55-1.02 [facility] Comment on above: Result Comment: The validity of the calculated GFR GFRAA in patients over 70 years has not been determined. Clinical correlation is essential. Performed By: #### L 500.2500, [id number] #### [facility] [address] [place], [address] EST GFR - AA 70 mL/min Normal >60 [facility] Comment on above: Result Comment: Afri can Thai GFR Calc Performed By: #### L 500.2500, [id number] #### [facility] [address] [place], [address] GAP 5 Normal 5-15 [facility] Comment on above: Performed By: #### L 500.2500, [id number] #### [facility] [address] [place], [address] GFR/1.73 sq M.predicted among non-blacks MDRD (S/P/Bld) [Vol rate/Area] 58 mL/min/{1.73_m2} Low >60 [facility] Comment on above: Result Comment: Non- GFR Calc Performed By: #### L 500.2500, L501.5200 #### [facility] [address] [place], [address] Glucose [Mass/Vol] 161 mg/dL High 74-106 [facility] Comment on above: Result Comment: Fast ing Glucose result greater than or equal to 126 mg/dL suggests DIABETES MELLITUS per A.D.A. criteria. Performed By: #### L 500.2500, L501.5200 #### [facility] [address] [place], [address] Potassium [Moles/Vol] 3.8 mmol/L Normal 3.5-5.1 [facility] Comment on above: Result Comment: Slig ht Hemolysis, Result may be falsely increased. Performed By: #### L 500.2500, L501.5200 #### [facility] [address] [place], [address] Sodium [Moles/Vol] 138 mmol/L Normal 136-145 [facility] Comment on above: Performed By: #### L 500.2500, L501.5200 #### [facility] [address] [place], [address] Urea nitrogen [Mass/Vol] 32 mg/dL High 7-18 [facility] Comment on above: Performed By: #### L 500.2500, [id number] #### [facility] [address] [place], [place], [id number] Blood urea nitrogen (BUN)/cr eatinine ratioOrdered By: Melissa Reed on 06-13-2024 Urea nitrogen/Creatinine [Mass ratio] 32.6 mg/mg High 10-20 [facility] Carbon dioxide measurementOr dered By: Melissa Reed on 06-13-2024 CO2 [Moles/Vol] 28.0 mmol/L 21.0-32.0 [facility] Chloride measurementOrdered By: Melissa Reed on 06-13-2024 Chloride [Moles/Vol] 105 mmol/L 98-107 [facility] Estimated glomerular filtrat ion rate (GFR) AmericanOrdered By: Melissa Reed on 06-13-2024 Estimated GFR (MDRD) Amer 70 mL/min >60 [facility] Comment on above: GFR Calc Glomerular filtration rate ( GFR) estimationOrdered By: Melissa Reed on 06-13-2024 Estimated GFR (MDRD) Non-Af Amer 58 mL/min Low >60 [facility] Comment on above: Non- GFR Calc Glucose measurementOrdered B y: Melissa Reed on 06-13-2024 Glucose [Mass/Vol] 161 mg/dL High 74-106 [facility] Comment on above: Fasting Glucose resu lt greater than or equal to 126 mg/dL suggests DIABETES MELLITUS per A.D.A. criteria. Magnesiumon 06-13-2024 Magnesium [Mass/Vol] 2.2 mg/dL Normal 1.6-2.6 [facility] Comment on above: Result Comment: Slig ht Hemolysis, Result may be falsely increased. Performed By: #### L 500.2500, [id number] #### [facility] [address] [place], [place], [id number] Magnesium measurementOrdered By: Melissa Reed on 06-13-2024 Magnesium [Mass/Vol] 2.2 mg/dL 1.6-2.6 [facility] Comment on above: Slight Hemolysis, Re sult may be falsely increased. Potassium measurementOrdered By: Melissa Reed on 06-13-2024 Potassium [Moles/Vol] 3.8 mmol/L 3.5-5.1 [facility] Comment on above: Slight Hemolysis, Re sult may be falsely increased. Serum anion gap measurementO rdered By: Melissa Reed on 06-13-2024 Anion gap [Moles/Vol] 5 mmol/L 5-15 [facility] Serum or plasma calcium danae urement (mass/volume)Ordered By: Melissa Reed on 06-13-2024 Calcium [Mass/Vol] 8.7 mg/dL 8.5-10.1 [facility] Serum or plasma creatinine m easurement (mass/volume)Ordered By: Melissa Reed on 06-13-2024 Creatinine [Mass/Vol] 0.98 mg/dL 0.55-1.02 [facility] Comment on above: The validity of the calculated GFR & GFRAA in patients over 70 years has not been determined. Clinical correlation is essential. Serum or plasma urea nitroge n measurement (mass/volume)Ordered By: Melissa Reed on 06-13-2024 Urea nitrogen [Mass/Vol] 32 mg/dL High 7-18 [facility] Sodium levelOrdered By: Rubin Reed on 06-13-2024 Sodium [Moles/Vol] 138 mmol/L 136-145 [facility] Basic Metabolic Profile (BMP )on 05-29-2024 BUN/CRE 22.1 RATIO High 10-20 [facility] Comment on above: Order Comment: 157 Performed By: #### L 501.5200, L500.2500 #### [facility] [address] [place], [address] CA,Total 8.9 mg/dL Normal 8.5-10.1 [facility] Comment on above: Order Comment: 157 Performed By: #### L 501.5200, L500.2500 #### [facility] [address] [place], [address] Chloride [Moles/Vol] 106 mmol/L Normal 98-107 [facility] Comment on above: Order Comment: 157 Performed By: #### L 501.5200, L500.2500 #### [facility] [address] [place], [address] CO2 [Moles/Vol] 32.0 mmol/L Normal 21.0-32.0 [facility] Comment on above: Order Comment: 157 Performed By: #### L 501.5200, L500.2500 #### [facility] [address] [place], [address] Creatinine [Mass/Vol] 1.31 mg/dL High 0.55-1.02 [facility] Comment on above: Order Comment: 157 Result Comment: The validity of the calculated GFR GFRAA in patients over 70 years has not been determined. Clinical correlation is essential. Performed By: #### L 501.5200, L500.2500 #### [facility] [address] [place], [address] EST GFR - AA 50 mL/min Low >60 [facility] Comment on above: Order Comment: 157 Result Comment: Afri can Thai GFR Calc Performed By: #### L 501.5200, L500.2500 #### [facility] [address] [place], [address] GAP 5 Normal 5-15 [facility] Comment on above: Order Comment: 157 Performed By: #### L 501.5200, L500.2500 #### [facility] [address] [place], [address] GFR/1.73 sq M.predicted among non-blacks MDRD (S/P/Bld) [Vol rate/Area] 41 mL/min/{1.73_m2} Low >60 [facility] Comment on above: Order Comment: 157 Result Comment: Non- GFR Calc Performed By: #### L 501.5200, L500.2500 #### [facility] [address] [place], [address] Glucose [Mass/Vol] 116 mg/dL High 74-106 [facility] Comment on above: Order Comment: 157 Result Comment: Fast ing Glucose result from 100 to 125 mg/dL suggests IMPAIRED HOMEOSTASIS per A.D.A. criteria. Performed By: #### L 501.5200, L500.2500 #### [facility] [address] [place], [address] Potassium [Moles/Vol] 3.6 mmol/L Normal 3.5-5.1 [facility] Comment on above: Order Comment: 157 Performed By: #### L 501.5200, L500.2500 #### [facility] [address] [place], [address] Sodium [Moles/Vol] 142 mmol/L Normal 136-145 [facility] Comment on above: Order Comment: 157 Performed By: #### L 501.5200, L500.2500 #### [facility] [address] [place], [address] Urea nitrogen [Mass/Vol] 29 mg/dL High 7-18 [facility] Comment on above: Order Comment: 157 Performed By: #### L 501.5200, L500.2500 #### [facility] [address] [place], [address] Blood urea nitrogen (BUN)/cr eatinine ratioOrdered By: Melissa Reed on 05-29-2024 Urea nitrogen/Creatinine [Mass ratio] 22.1 mg/mg High 10-20 [facility] Carbon dioxide measurementOr dered By: Melissa Reed on 05-29-2024 CO2 [Moles/Vol] 32.0 mmol/L 21.0-32.0 [facility] Chloride measurementOrdered By: Melissa Reed on 05-29-2024 Chloride [Moles/Vol] 106 mmol/L 98-107 [facility] Estimated glomerular filtrat ion rate (GFR) AmericanOrdered By: Melissa Reed on 05-29-2024 Estimated GFR (MDRD) Amer 50 mL/min Low >60 [facility] Comment on above: GFR Calc Glomerular filtration rate ( GFR) estimationOrdered By: Melissa Reed on 05-29-2024 Estimated GFR (MDRD) Non-Af Amer 41 mL/min Low >60 [facility] Comment on above: Non- GFR Calc Glucose measurementOrdered B y: Melissa Reed on 05-29-2024 Glucose [Mass/Vol] 116 mg/dL High 74-106 [facility] Comment on above: Fasting Glucose resu lt from 100 to 125 mg/dL suggests IMPAIRED HOMEOSTASIS per A.D.A. criteria. Magnesiumon 05-29-2024 Magnesium [Mass/Vol] 2.0 mg/dL Normal 1.6-2.6 [facility] Comment on above: Order Comment: 157 Performed By: #### L 501.5200, L500.2500 #### [facility] [address] [place], [address] Magnesium measurementOrdered By: Melissa Reed on 05-29-2024 Magnesium [Mass/Vol] 2.0 mg/dL 1.6-2.6 [facility] Potassium measurementOrdered By: Melissa Reed on 05-29-2024 Potassium [Moles/Vol] 3.6 mmol/L 3.5-5.1 [facility] Serum anion gap measurementO rdered By: Melissa Reed on 05-29-2024 Anion gap [Moles/Vol] 5 mmol/L 5-15 [facility] Serum or plasma calcium danae urement (mass/volume)Ordered By: Melissa Reed on 05-29-2024 Calcium [Mass/Vol] 8.9 mg/dL 8.5-10.1 [facility] Serum or plasma creatinine m easurement (mass/volume)Ordered By: Melissa Reed on 05-29-2024 Creatinine [Mass/Vol] 1.31 mg/dL High 0.55-1.02 [facility] Comment on above: The validity of the calculated GFR & GFRAA in patients over 70 years has not been determined. Clinical correlation is essential. Serum or plasma urea nitroge n measurement (mass/volume)Ordered By: Melissa Reed on 05-29-2024 Urea nitrogen [Mass/Vol] 29 mg/dL High -18 [facility] Sodium levelOrdered By: Rubin Reed on 05-29-2024 Sodium [Moles/Vol] 142 mmol/L 136-145 [facility] Basic Metabolic Profile (BMP )on 05-15-2024 BUN/CRE 31.1 RATIO High 10-20 [facility] Comment on above: Order Comment: 157 Performed By: #### L 501.5200, L500.2500 #### [facility] [address] [place], [address] CA,Total 8.7 mg/dL Normal 8.5-10.1 [facility] Comment on above: Order Comment: 157 Performed By: #### L 501.5200, [id number] #### [facility] [address] [place], [address] Chloride [Moles/Vol] 105 mmol/L Normal 98-107 [facility] Comment on above: Order Comment: 157 Performed By: #### L 501.5200, L500.2500 #### [facility] [address] [place], [address] CO2 [Moles/Vol] 30.0 mmol/L Normal 21.0-32.0 [facility] Comment on above: Order Comment: 157 Performed By: #### L 501.5200, L500.2500 #### [facility] [address] [place], [address] Creatinine [Mass/Vol] 1.06 mg/dL High 0.55-1.02 [facility] Comment on above: Order Comment: 157 Result Comment: The validity of the calculated GFR GFRAA in patients over 70 years has not been determined. Clinical correlation is essential. Performed By: #### L 501.5200, L500.2500 #### [facility] [address] [place], [address] EST GFR - AA 64 mL/min Normal >60 [facility] Comment on above: Order Comment: 157 Result Comment: Afri can Thai GFR Calc Performed By: #### L 501.5200, L500.2500 #### [facility] [address] [place], [address] GAP 5 Normal 5-15 [facility] Comment on above: Order Comment: 157 Performed By: #### L 501.5200, L500.2500 #### [facility] [address] [place], [address] GFR/1.73 sq M.predicted among non-blacks MDRD (S/P/Bld) [Vol rate/Area] 53 mL/min/{1.73_m2} Low >60 [facility] Comment on above: Order Comment: 157 Result Comment: Non- GFR Calc Performed By: #### L 501.5200, L500.2500 #### [facility] [address] [place], [address] Glucose [Mass/Vol] 119 mg/dL High 74-106 [facility] Comment on above: Order Comment: 157 Result Comment: Fast ing Glucose result from 100 to 125 mg/dL suggests IMPAIRED HOMEOSTASIS per A.D.A. criteria. Performed By: #### L 501.5200, L500.2500 #### [facility] [address] [place], [address] Potassium [Moles/Vol] 3.6 mmol/L Normal 3.5-5.1 [facility] Comment on above: Order Comment: 157 Performed By: #### L 501.5200, L500.2500 #### [facility] [address] [place], [address] Sodium [Moles/Vol] 140 mmol/L Normal 136-145 [facility] Comment on above: Order Comment: 157 Performed By: #### L 501.5200, L500.2500 #### [facility] [address] [place], [address] Urea nitrogen [Mass/Vol] 33 mg/dL High 7-18 [facility] Comment on above: Order Comment: 157 Performed By: #### L 501.5200, L500.2500 #### [facility] [address] [place], [address] Magnesiumon 05-15-2024 Magnesium [Mass/Vol] 2.1 mg/dL Normal 1.6-2.6 [facility] Comment on above: Order Comment: 157 Performed By: #### L 501.5200, L500.2500 #### [facility] [address] [place], [address] Basic Metabolic Profile (BMP )on 05-01-2024 BUN/CRE 21.4 RATIO High 10-20 [facility] Comment on above: Order Comment: 157 Performed By: #### L 501.5200, L500.2500 #### [facility] [address] [place], [address] CA,Total 9.2 mg/dL Normal 8.5-10.1 [facility] Comment on above: Order Comment: 157 Performed By: #### L 501.5200, L500.2500 #### [facility] [address] [place], [address] Chloride [Moles/Vol] 106 mmol/L Normal 98-107 [facility] Comment on above: Order Comment: 157 Performed By: #### L 501.5200, L500.2500 #### [facility] [address] [place], [address] CO2 [Moles/Vol] 27.0 mmol/L Normal 21.0-32.0 [facility] Comment on above: Order Comment: 157 Performed By: #### L 501.5200, L500.2500 #### [facility] [address] [place], [address] Creatinine [Mass/Vol] 1.26 mg/dL High 0.55-1.02 [facility] Comment on above: Order Comment: 157 Result Comment: The validity of the calculated GFR GFRAA in patients over 70 years has not been determined. Clinical correlation is essential. Performed By: #### L 501.5200, L500.2500 #### [facility] [address] [place], [address] EST GFR - AA 53 mL/min Low >60 [facility] Comment on above: Order Comment: 157 Result Comment: Afri can Thai GFR Calc Performed By: #### L 501.5200, L500.2500 #### [facility] [address] [place], [address] GAP 7 Normal 5-15 [facility] Comment on above: Order Comment: 157 Performed By: #### L 501.5200, L500.2500 #### [facility] [address] [place], [address] GFR/1.73 sq M.predicted among non-blacks MDRD (S/P/Bld) [Vol rate/Area] 43 mL/min/{1.73_m2} Low >60 [facility] Comment on above: Order Comment: 157 Result Comment: Non- GFR Calc Performed By: #### L 501.5200, L500.2500 #### [facility] [address] [place], [address] Glucose [Mass/Vol] 126 mg/dL High 74-106 [facility] Comment on above: Order Comment: 157 Result Comment: Fast ing Glucose result greater than or equal to 126 mg/dL suggests DIABETES MELLITUS per A.D.A. criteria. Performed By: #### L 501.5200, L500.2500 #### [facility] [address] [place], [address] Potassium [Moles/Vol] 4.3 mmol/L Normal 3.5-5.1 [facility] Comment on above: Order Comment: 157 Performed By: #### L 501.5200, L500.2500 #### [facility] [address] [place], [address] Sodium [Moles/Vol] 140 mmol/L Normal 136-145 [facility] Comment on above: Order Comment: 157 Performed By: #### L 501.5200, L500.2500 #### [facility] [address] [place], [address] Urea nitrogen [Mass/Vol] 27 mg/dL High 7-18 [facility] Comment on above: Order Comment: 157 Performed By: #### L 501.5200, L500.2500 #### [facility] [address] [place], [address] Magnesiumon 05-01-2024 Magnesium [Mass/Vol] 2.1 mg/dL Normal 1.6-2.6 [facility] Comment on above: Order Comment: 157 Performed By: #### L 501.5200, L500.2500 #### [facility] [address] [place], [address] Basic Metabolic Profile (BMP )on 04-17-2024 BUN/CRE 20.4 RATIO High - [facility] Comment on above: Order Comment: 157 Performed By: #### M 100.2200, L400.0001 #### [facility] [address] [place], [address] CA,Total 8.6 mg/dL Normal 8.5-10.1 [facility] Comment on above: Order Comment: 157 Performed By: #### M 100.2200, [id number] #### [facility] [address] [place], [address] Chloride [Moles/Vol] 105 mmol/L Normal 98-107 [facility] Comment on above: Order Comment: 157 Performed By: #### M 100.2200, [id number] #### [facility] [address] [place], [address] CO2 [Moles/Vol] 31.0 mmol/L Normal 21.0-32.0 [facility] Comment on above: Order Comment: 157 Performed By: #### M 100.2200, L400.0001 #### [facility] [address] [place], [address] Creatinine [Mass/Vol] 1.03 mg/dL High 0.55-1.02 [facility] Comment on above: Order Comment: 157 Result Comment: The validity of the calculated GFR GFRAA in patients over 70 years has not been determined. Clinical correlation is essential. Performed By: #### M 100.2200, L400.0001 #### [facility] [address] [place], [address] EST GFR - AA 66 mL/min Normal >60 [facility] Comment on above: Order Comment: 157 Result Comment: Afri can Thai GFR Calc Performed By: #### M 100.2200, L400.0001 #### [facility] [address] [place], [address] GAP 3 Low 5-15 [facility] Comment on above: Order Comment: 157 Performed By: #### M 100.2200, L400.0001 #### [facility] [address] [place], [address] GFR/1.73 sq M.predicted among non-blacks MDRD (S/P/Bld) [Vol rate/Area] 55 mL/min/{1.73_m2} Low >60 [facility] Comment on above: Order Comment: 157 Result Comment: Non- GFR Calc Performed By: #### M 100.2200, L400.0001 #### [facility] [address] [place], [address] Glucose [Mass/Vol] 172 mg/dL High 74-106 [facility] Comment on above: Order Comment: 157 Result Comment: Fast ing Glucose result greater than or equal to 126 mg/dL suggests DIABETES MELLITUS per A.D.A. criteria. Performed By: #### M 100.2200, [id number] #### [facility] [address] [place], [address] Potassium [Moles/Vol] 3.6 mmol/L Normal 3.5-5.1 [facility] Comment on above: Order Comment: 157 Performed By: #### M 100.2200, [id number] #### [facility] [address] [place], [address] Sodium [Moles/Vol] 140 mmol/L Normal 136-145 [facility] Comment on above: Order Comment: 157 Performed By: #### M 100.2200, [id number] #### [facility] [address] [place], [address] Urea nitrogen [Mass/Vol] 21 mg/dL High 7-18 [facility] Comment on above: Order Comment: 157 Performed By: #### M 100.2200, [id number] #### [facility] [address] [place], [address] Magnesiumon 04-17-2024 Magnesium [Mass/Vol] 2.3 mg/dL Normal 1.6-2.6 [facility] Comment on above: Performed By: #### M 100.2200, [id number] #### [facility] [address] [place], [address] [id number] 04-06-2024 VIT D,25 HYDROX Normal [facility] Comment on above: Order Comment: SENDI NG SPECIMEN TO REFERENCE LABORATORY Result Comment: TEST RESULTS LIMITS Vitamin D, 25-Hydroxy 32.0 ng/mL 30.0-100.0 Vitamin D deficiency has been defined by the [place] [employer] and an Endocrine Society practice guideline as a level of serum 25-OH vitamin D less than 20 ng/mL (1,2). The Endocrine Society went on to further define vitamin D insufficiency as a level between 21 and 29 ng/mL (2). 1. IOM ([place] [employer]). 2010. Dietary reference intakes for calcium and D. [place]: The National Academies Press. 2. Josias MF, Eddie GAUTAM, Patrick RODRIGUEZ, et al. Evaluation, treatment, and prevention of vitamin D deficiency: an Endocrine Society clinical practice guideline. JCEM. 2010; 96(7):1911-30. TESTING PERFORMED AT [facility]. ORIGINAL REPORT ON FILE IN LAB CONTAINS ADDITIONAL TEST SITE INFORMATION. Performed By: #### L 500.2500, L501.5200 #### [facility] [address] [place], [address] Basic Metabolic Profile (BMP )on 04-04-2024 BUN/CRE 23.3 RATIO High 04-07 [facility] Comment on above: Order Comment: 157 Performed By: #### L 501.5200, L500.2500 #### [facility] [address] [place], [address] CA,Total 9.4 mg/dL Normal 8.5-10.1 [facility] Comment on above: Order Comment: 157 Performed By: #### L 501.5200, L500.2500 #### [facility] [address] [place], [address] Chloride [Moles/Vol] 103 mmol/L Normal 98-107 [facility] Comment on above: Order Comment: 157 Performed By: #### L 501.5200, L500.2500 #### [facility] [address] [place], [address] CO2 [Moles/Vol] 33.0 mmol/L High 21.0-32.0 [facility] Comment on above: Order Comment: 157 Performed By: #### L 501.5200, L500.2500 #### [facility] [address] [place], [address] Creatinine [Mass/Vol] 1.20 mg/dL High 0.55-1.02 [facility] Comment on above: Order Comment: 157 Result Comment: The validity of the calculated GFR GFRAA in patients over 70 years has not been determined. Clinical correlation is essential. Performed By: #### L 501.5200, L500.2500 #### [facility] [address] [place], [address] EST GFR - AA 56 mL/min Low >60 [facility] Comment on above: Order Comment: 157 Result Comment: Afri can Thai GFR Calc Performed By: #### L 501.5200, L500.2500 #### [facility] [address] [place], [address] GAP 4 Low 5-15 [facility] Comment on above: Order Comment: 157 Performed By: #### L 501.5200, L500.2500 #### [facility] [address] [place], [address] GFR/1.73 sq M.predicted among non-blacks MDRD (S/P/Bld) [Vol rate/Area] 46 mL/min/{1.73_m2} Low >60 [facility] Comment on above: Order Comment: 157 Result Comment: Non- GFR Calc Performed By: #### L 501.5200, L500.2500 #### [facility] [address] [place], [address] Glucose [Mass/Vol] 120 mg/dL High 74-106 [facility] Comment on above: Order Comment: 157 Result Comment: Fast ing Glucose result from 100 to 125 mg/dL suggests IMPAIRED HOMEOSTASIS per A.D.A. criteria. Performed By: #### L 501.5200, L500.2500 #### [facility] [address] [place], [address] Potassium [Moles/Vol] 4.1 mmol/L Normal 3.5-5.1 [facility] Comment on above: Order Comment: 157 Performed By: #### L 501.5200, L500.2500 #### [facility] [address] [place], [address] Sodium [Moles/Vol] 140 mmol/L Normal 136-145 [facility] Comment on above: Order Comment: 157 Performed By: #### L 501.5200, L500.2500 #### [facility] [address] [place], [address] Urea nitrogen [Mass/Vol] 28 mg/dL High - [facility] Comment on above: Order Comment: 157 Performed By: #### L 501.5200, L500.2500 #### [facility] [address] [place], [address] Magnesiumon 04-04-2024 Magnesium [Mass/Vol] 2.1 mg/dL Normal 1.6-2.6 [facility] Comment on above: Order Comment: 157 Performed By: #### L 501.5200, L500.2500 #### [facility] [address] [place], [address] Basic Metabolic Profile (BMP )on 04-03-2024 BUN Normal - [facility] Comment on above: Order Comment: 157 Result Comment: UTO TOLD NURSE Performed By: #### M 100.2200, [id number] #### [facility] [address] [place], [address] BUN/CRE Normal 10-20 [facility] Comment on above: Order Comment: 157 Result Comment: UTO TOLD NURSE Performed By: #### M 100.2200, L400.0001 #### [facility] [address] [place], [address] CA,Total Normal 8.5-10.1 [facility] Comment on above: Order Comment: 157 Result Comment: UTO TOLD NURSE Performed By: #### M 100.2200, [id number] #### [facility] [address] [place], [address] CL Normal 98-107 [facility] Comment on above: Order Comment: 157 Result Comment: UTO TOLD NURSE Performed By: #### M 100.2200, L400.0001 #### [facility] [address] [place], [address] CO2 Normal 21.0-32.0 [facility] Comment on above: Order Comment: 157 Result Comment: UTO TOLD NURSE Performed By: #### M 100.0, L400.0001 #### [facility] [address] [place], [address] CREAT,SERUM Normal 0.55-1.02 [facility] Comment on above: Order Comment: 157 Result Comment: UTO TOLD NURSE Performed By: #### M 100.2200, [id number] #### [facility] [address] [place], [address] EST GFR Normal >60 [facility] Comment on above: Order Comment: 157 Result Comment: UTO TOLD NURSE Performed By: #### M 100.2200, [id number] #### [facility] [address] [place], [address] EST GFR - AA Normal >60 [facility] Comment on above: Order Comment: 157 Result Comment: UTO TOLD NURSE Performed By: #### M 100.2200, [id number] #### [facility] [address] [place], [address] GAP Normal 5-15 [facility] Comment on above: Order Comment: 157 Result Comment: UTO TOLD NURSE Performed By: #### M 100.2200, [id number] #### [facility] [address] [place], [address] GLU Normal 74-106 [facility] Comment on above: Order Comment: 157 Result Comment: UTO TOLD NURSE Performed By: #### M 100.2200, [id number] #### [facility] [address] [place], [address] Potassium Normal 3.5-5.1 [facility] Comment on above: Order Comment: 157 Result Comment: UTO TOLD NURSE Performed By: #### M 100.2200, L400.0001 #### [facility] [address] [place], [address] Basic Metabolic Profile (BMP) Normal 136-145 [facility] Comment on above: Order Comment: 157 Result Comment: UTO TOLD NURSE Performed By: #### M 100.2200, L400.0001 #### [facility] [address] [place], [address] Hemoglobin A1con 04-01-2024 HbA1c (Bld) [Mass fraction] 6.2 % High 3.8-5.6 [facility] Comment on above: Order Comment: 157 Result Comment: Norm al < 5.7 % Prediabetic 5.7 - 6.4 % Diabetic >or= 6.5 % Please note range changes. Performed By: #### L 500.2500, L501.5200 #### [facility] [address] [place], [address] Thyroid Stim Hormone (TSH)on 04-01-2024 TSH 2.980 uIU/mL Normal 0.358-3.740 [facility] Comment on above: Order Comment: 157 Performed By: #### L 500.2500, L501.5200 #### [facility] [address] [place], [address] Basic Metabolic Profile (BMP )on 03-20-2024 BUN/CRE 20.4 RATIO High 10-20 [facility] Comment on above: Order Comment: 157 Performed By: #### M 100.2200, [id number] #### [facility] [address] [place], [address] CA,Total 8.8 mg/dL Normal 8.5-10.1 [facility] Comment on above: Order Comment: 157 Performed By: #### M 100.2200, [id number] #### [facility] [address] [place], [address] Chloride [Moles/Vol] 104 mmol/L Normal 98-107 [facility] Comment on above: Order Comment: 157 Performed By: #### M 100.2200, [id number] #### [facility] [address] [place], [address] CO2 [Moles/Vol] 27.0 mmol/L Normal 21.0-32.0 [facility] Comment on above: Order Comment: 157 Performed By: #### M 100.2200, [id number] #### [facility] [address] [place], [address] Creatinine [Mass/Vol] 0.98 mg/dL Normal 0.55-1.02 [facility] Comment on above: Order Comment: 157 Result Comment: The validity of the calculated GFR GFRAA in patients over 70 years has not been determined. Clinical correlation is essential. Performed By: #### M 100.2200, [id number] #### [facility] [address] [place], [address] EST GFR - AA 70 mL/min Normal >60 [facility] Comment on above: Order Comment: 157 Result Comment: Afri can Thai GFR Calc Performed By: #### M 100.2200, [id number] #### [facility] [address] [place], [address] GAP 4 Low 5-15 [facility] Comment on above: Order Comment: 157 Performed By: #### M 100.2200, [id number] #### [facility] [address] [place], [address] GFR/1.73 sq M.predicted among non-blacks MDRD (S/P/Bld) [Vol rate/Area] 58 mL/min/{1.73_m2} Low >60 [facility] Comment on above: Order Comment: 157 Result Comment: Non- GFR Calc Performed By: #### M 100.0, L400.0001 #### [facility] [address] [place], [address] Glucose [Mass/Vol] 102 mg/dL Normal 74-106 [facility] Comment on above: Order Comment: 157 Result Comment: Fast ing Glucose result from 100 to 125 mg/dL suggests IMPAIRED HOMEOSTASIS per A.D.A. criteria. Performed By: #### M 100.0, L400.0001 #### [facility] [address] [place], [address] Potassium [Moles/Vol] 4.2 mmol/L Normal 3.5-5.1 [facility] Comment on above: Order Comment: 157 Result Comment: Mode rate Hemolysis, Result may be falsely increased. Performed By: #### M 100.2200, [id number] #### [facility] [address] [place], [address] Sodium [Moles/Vol] 135 mmol/L Low 136-145 [facility] Comment on above: Order Comment: 157 Performed By: #### M 100.2200, [id number] #### [facility] [address] [place], [address] Urea nitrogen [Mass/Vol] 20 mg/dL High 01-03 [facility] Comment on above: Order Comment: 157 Performed By: #### M 100.2200, [id number] #### [facility] [address] [place], [address] Magnesiumon 03-20-2024 Magnesium [Mass/Vol] 2.2 mg/dL Normal 1.6-2.6 [facility] Comment on above: Order Comment: 157 Result Comment: Mode rate Hemolysis, Result may be falsely increased. Performed By: #### M 100.2200, [id number] #### [facility] [address] [place], [address] Basic Metabolic Profile (BMP )on 03-06-2024 BUN/CRE 25.2 RATIO High - [facility] Comment on above: Order Comment: 157 Performed By: #### L 501.5200, L500.2500 #### [facility] [address] [place], [address] CA,Total 8.7 mg/dL Normal 8.5-10.1 [facility] Comment on above: Order Comment: 157 Performed By: #### L 501.5200, L500.2500 #### [facility] [address] [place], [address] Chloride [Moles/Vol] 104 mmol/L Normal 98-107 [facility] Comment on above: Order Comment: 157 Performed By: #### L 501.5200, L500.2500 #### [facility] [address] [place], [address] CO2 [Moles/Vol] 31.0 mmol/L Normal 21.0-32.0 [facility] Comment on above: Order Comment: 157 Performed By: #### L 501.5200, L500.2500 #### [facility] [address] [place], [address] Creatinine [Mass/Vol] 1.07 mg/dL High 0.55-1.02 [facility] Comment on above: Order Comment: 157 Result Comment: The validity of the calculated GFR GFRAA in patients over 70 years has not been determined. Clinical correlation is essential. Performed By: #### L 501.5200, L500.2500 #### [facility] [address] [place], [address] EST GFR - AA 63 mL/min Normal >60 [facility] Comment on above: Order Comment: 157 Result Comment: Afri can Thai GFR Calc Performed By: #### L 501.5200, L500.2500 #### [facility] [address] [place], [address] GAP 6 Normal 5-15 [facility] Comment on above: Order Comment: 157 Performed By: #### L 501.5200, L500.2500 #### [facility] [address] [place], [address] GFR/1.73 sq M.predicted among non-blacks MDRD (S/P/Bld) [Vol rate/Area] 52 mL/min/{1.73_m2} Low >60 [facility] Comment on above: Order Comment: 157 Result Comment: Non- GFR Calc Performed By: #### L 501.5200, L500.2500 #### [facility] [address] [place], [address] Glucose [Mass/Vol] 123 mg/dL High 74-106 [facility] Comment on above: Order Comment: 157 Result Comment: Fast ing Glucose result from 100 to 125 mg/dL suggests IMPAIRED HOMEOSTASIS per A.D.A. criteria. Performed By: #### L 501.5200, L500.2500 #### [facility] [address] [place], [address] Potassium [Moles/Vol] 3.5 mmol/L Normal 3.5-5.1 [facility] Comment on above: Order Comment: 157 Performed By: #### L 501.5200, L500.2500 #### [facility] [address] [place], [address] Sodium [Moles/Vol] 141 mmol/L Normal 136-145 [facility] Comment on above: Order Comment: 157 Performed By: #### L 501.5200, L500.2500 #### [facility] [address] [place], [address] Urea nitrogen [Mass/Vol] 27 mg/dL High 7-18 [facility] Comment on above: Order Comment: 157 Performed By: #### L 501.5200, L500.2500 #### [facility] [address] [place], [address] Basic Metabolic Profile (BMP )on 02-20-2024 BUN/CRE 21.6 RATIO High 10-20 [facility] Comment on above: Order Comment: 157 Performed By: #### L 500.2500, L501.5200 #### [facility] [address] [place], [address] CA,Total 8.7 mg/dL Normal 8.5-10.1 [facility] Comment on above: Order Comment: 157 Performed By: #### L 500.2500, L501.5200 #### [facility] [address] [place], [address] Chloride [Moles/Vol] 104 mmol/L Normal 98-107 [facility] Comment on above: Order Comment: 157 Performed By: #### L 500.2500, L501.5200 #### [facility] [address] [place], [address] CO2 [Moles/Vol] 31.0 mmol/L Normal 21.0-32.0 [facility] Comment on above: Order Comment: 157 Performed By: #### L 500.2500, L501.5200 #### [facility] [address] [place], [address] Creatinine [Mass/Vol] 0.97 mg/dL Normal 0.55-1.02 [facility] Comment on above: Order Comment: 157 Result Comment: The validity of the calculated GFR GFRAA in patients over 70 years has not been determined. Clinical correlation is essential. Performed By: #### L 500.2500, L501.5200 #### [facility] [address] [place], [address] EST GFR - AA 71 mL/min Normal >60 [facility] Comment on above: Order Comment: 157 Result Comment: Afri can Thai GFR Calc Performed By: #### L 500.2500, L501.5200 #### [facility] [address] [place], [address] GAP 6 Normal 5-15 [facility] Comment on above: Order Comment: 157 Performed By: #### L 500.2500, L501.5200 #### [facility] [address] [place], [address] GFR/1.73 sq M.predicted among non-blacks MDRD (S/P/Bld) [Vol rate/Area] 58 mL/min/{1.73_m2} Low >60 [facility] Comment on above: Order Comment: 157 Result Comment: Non- GFR Calc Performed By: #### L 500.2500, L501.5200 #### [facility] [address] [place], [address] Glucose [Mass/Vol] 160 mg/dL High 74-106 [facility] Comment on above: Order Comment: 157 Result Comment: Fast ing Glucose result greater than or equal to 126 mg/dL suggests DIABETES MELLITUS per A.D.A. criteria. Performed By: #### L 500.2500, L501.5200 #### [facility] [address] [place], [address] Potassium [Moles/Vol] 3.6 mmol/L Normal 3.5-5.1 [facility] Comment on above: Order Comment: 157 Performed By: #### L 500.2500, L501.5200 #### [facility] [address] [place], [address] Sodium [Moles/Vol] 141 mmol/L Normal 136-145 [facility] Comment on above: Order Comment: 157 Performed By: #### L 500.2500, L501.5200 #### [facility] [address] [place], [address] Urea nitrogen [Mass/Vol] 21 mg/dL High 7-18 [facility] Comment on above: Order Comment: 157 Performed By: #### L 500.2500, L501.5200 #### [facility] [address] [place], [address] 36on 02-05-2024 36 Okay, thank you appreciate her letting us know Normal [facility] 36 We had returned mail on patient---I called her to get her new address. She stated that she is in assisted living at [facility] and will not be a patient at our office. She also wanted Dr. Lopez to know that she appreciates everything that he has done for her over the years. Normal [facility] Basic Metabolic Profile (BMP )on 02-05-2024 BUN/CRE 21.9 RATIO High 10-20 [facility] Comment on above: Order Comment: 157 Performed By: #### M 100.2200, L400.0001 #### [facility] [address] [place], [address] CA,Total 8.5 mg/dL Normal 8.5-10.1 [facility] Comment on above: Order Comment: 157 Performed By: #### M 100.2200, L400.0001 #### [facility] [address] [place], [address] Chloride [Moles/Vol] 104 mmol/L Normal 98-107 [facility] Comment on above: Order Comment: 157 Performed By: #### M 100.2200, L400.0001 #### [facility] [address] [place], [address] CO2 [Moles/Vol] 29.0 mmol/L Normal 21.0-32.0 [facility] Comment on above: Order Comment: 157 Performed By: #### M 100.2200, L400.0001 #### [facility] [address] [place], [address] Creatinine [Mass/Vol] 1.14 mg/dL High 0.55-1.02 [facility] Comment on above: Order Comment: 157 Result Comment: The validity of the calculated GFR GFRAA in patients over 70 years has not been determined. Clinical correlation is essential. Performed By: #### M 100.2200, L400.0001 #### [facility] [address] [place], [address] EST GFR - AA 59 mL/min Low >60 [facility] Comment on above: Order Comment: 157 Result Comment: Afri can Thai GFR Calc Performed By: #### M 100.2200, L400.0001 #### [facility] [address] [place], [address] GAP 5 Normal 5-15 [facility] Comment on above: Order Comment: 157 Performed By: #### M 100.2200, L400.0001 #### [facility] [address] [place], [address] GFR/1.73 sq M.predicted among non-blacks MDRD (S/P/Bld) [Vol rate/Area] 49 mL/min/{1.73_m2} Low >60 [facility] Comment on above: Order Comment: 157 Result Comment: Non- GFR Calc Performed By: #### M 100.2200, L400.0001 #### [facility] [address] [place], [address] Glucose [Mass/Vol] 231 mg/dL High 74-106 [facility] Comment on above: Order Comment: 157 Result Comment: Gluc ose result greater than or equal to 200 mg/dL suggests DIABETES MELLITUS per A.D.A. criteria. Performed By: #### M 100.2200, L400.0001 #### [facility] [address] [place], [address] Potassium [Moles/Vol] 3.6 mmol/L Normal 3.5-5.1 [facility] Comment on above: Order Comment: 157 Performed By: #### M 100.2200, L400.0001 #### [facility] [address] [place], [address] Sodium [Moles/Vol] 138 mmol/L Normal 136-145 [facility] Comment on above: Order Comment: 157 Performed By: #### M 100.2200, L400.0001 #### [facility] [address] [place], [address] Urea nitrogen [Mass/Vol] 25 mg/dL High 7-18 [facility] Comment on above: Order Comment: 157 Performed By: #### M 100.2200, L400.0001 #### [facility] [address] [place], [address] BNP,B-Type NATRIURETIC PEPTI Elizabeth 01-24-2024 Natriuretic peptide B (Bld) [Mass/Vol] 81.5 pg/mL Normal 0-100 [facility] Comment on above: Performed By: #### L 501.9985, L500.4100, L500.2500, L100.0500 #### [facility] [address] [place], [address] Basic Metabolic Profile (BMP )on 01-24-2024 BUN/CRE 17.1 RATIO Normal 10-20 [facility] Comment on above: Performed By: #### M 100.2200, L400.0001 #### [facility] [address] [place], [address] CA,Total 9.1 mg/dL Normal 8.5-10.1 [facility] Comment on above: Performed By: #### M 100.2200, L400.0001 #### [facility] [address] [place], [address] Chloride [Moles/Vol] 105 mmol/L Normal 98-107 [facility] Comment on above: Performed By: #### M 100.2200, L400.0001 #### [facility] [address] [place], [address] CO2 [Moles/Vol] 29.0 mmol/L Normal 21.0-32.0 [facility] Comment on above: Performed By: #### M 100.2200, L400.0001 #### [facility] [address] [place], [address] Creatinine [Mass/Vol] 1.17 mg/dL High 0.55-1.02 [facility] Comment on above: Result Comment: The validity of the calculated GFR GFRAA in patients over 70 years has not been determined. Clinical correlation is essential. Performed By: #### M 100.2200, L400.0001 #### [facility] [address] [place], [address] EST GFR - AA 57 mL/min Low >60 [facility] Comment on above: Result Comment: Afri can Thai GFR Calc Performed By: #### M 100.2200, L400.0001 #### [facility] [address] [place], [address] GAP 7 Normal 5-15 [facility] Comment on above: Performed By: #### M 100.2200, L400.0001 #### [facility] [address] [place], [address] GFR/1.73 sq M.predicted among non-blacks MDRD (S/P/Bld) [Vol rate/Area] 47 mL/min/{1.73_m2} Low >60 [facility] Comment on above: Result Comment: Non- GFR Calc Performed By: #### M 100.2200, L400.0001 #### [facility] [address] [place], [address] Glucose [Mass/Vol] 125 mg/dL High 74-106 [facility] Comment on above: Result Comment: Fast ing Glucose result from 100 to 125 mg/dL suggests IMPAIRED HOMEOSTASIS per A.D.A. criteria. Performed By: #### M 100.2200, L400.0001 #### [facility] [address] [place], [address] Potassium [Moles/Vol] 3.8 mmol/L Normal 3.5-5.1 [facility] Comment on above: Performed By: #### M 100.2200, L400.0001 #### [facility] [address] [place], [address] Sodium [Moles/Vol] 141 mmol/L Normal 136-145 [facility] Comment on above: Performed By: #### M 100.2200, L400.0001 #### [facility] [address] [place], [address] Urea nitrogen [Mass/Vol] 20 mg/dL High 7-18 [facility] Comment on above: Performed By: #### M 100.2200, L400.0001 #### [facility] [address] [place], [address] Urine Cultureon 01-24-2024 [facility] TEST Result Referenc e Value REPORT DATE Identification Escherichia coli 01/23/2024 mCIM Negative Negative 01/23/2024 Comment: Results indicate that resistance to carbapenem(s) is likely due to an AmpC/ESBL beta-lactamase in combination Bacteria Ur Cult with porin loss and/or efflux. Bacteria Ur Cult Carbapenemase Molecular Detection IMP Gene Not Detected Not Detected 01/23/2024 KPC Gene Not Detected Not Detected 01/23/2024 NDM Gene Not Detected Not Detected 01/23/2024 OXA-23-like Gene Not Detected Not Detected 01/23/2024 OXA-24/40-like Gene Not Detected Not Detected 01/23/2024 OXA-48 like Gene Not Detected Not Detected 01/23/2024 OXA-58-like Gene Not Detected Not Detected 01/23/2024 VIM Gene Not Detected Not Detected 01/23/2024 Test comment: The performance characteristics of the polymerase chain reaction (PCR) assays were determined by the [facility]. They have not been cleared or approved by the FDA. Bacteria Ur Cult TESTING PERFORMED AT [facility]. ORIGINAL REPORT ON FILE IN LAB CONTAINS ADDITIONAL TEST SITE INFORMATION. Bacteria Ur Cult Copy of report sent to Infection [facility] [id number] 01/12/24 0747 SANDEEP. Bacteria Ur Cult ESBL Escherichia coli Reddick Count >100,000 MARKER A Possible Carbapenemase producing EnterobacteriaceaeA ESBL Escherichia coli: REACTION Amikacin Islt LAVINIA <=2 S Ampicillin Islt LAVINIA >=32 R Ampicillin+Sulbac Islt LAVINIA >=32 R ceFAZolin Islt LAVINIA >=64 R Cefepime Islt LAVINIA >=32 R cefoTEtan Islt LAVINIA >=64 R cefTRIAXone Islt LAVINIA >=64 R Ciprofloxacin Islt LAVINIA >=4 R Ertapenem Islt LAVINIA 2 R B-Lactamase Extended Susc Islt POS Gentamicin Islt LAVINIA <=1 S Imipenem Islt LAVINIA <=0.25 S levoFLOXacin Islt LAVINIA >=8 R Meropenem Islt LAVINIA <=0.25 S Nitrofurantoin Islt LAVINIA 32 S Pip+Tazo Islt LAVINIA >=128 R Tetracycline Islt LAVINIA >=16 R Tobramycin Islt LAVINIA <=1 S TMP SMX Islt LAVINIA >=320 R Cefuroxime Islt LAVINIA >=64 R Normal [facility] Comment on above: Performed By: #### M 100.2200, L400.0001 #### [facility] [address] [place], [address] Basic Metabolic Profile (BMP )on 01-22-2024 BUN/CRE 24.1 RATIO High 10-20 [facility] Comment on above: Order Comment: 157 Performed By: #### L 501.5200, L500.2500 #### [facility] [address] [place], [address] CA,Total 8.7 mg/dL Normal 8.5-10.1 [facility] Comment on above: Order Comment: 157 Performed By: #### L 501.5200, L500.2500 #### [facility] [address] [place], [address] Chloride [Moles/Vol] 105 mmol/L Normal 98-107 [facility] Comment on above: Order Comment: 157 Performed By: #### L 501.5200, L500.2500 #### [facility] [address] [place], [address] CO2 [Moles/Vol] 30.0 mmol/L Normal 21.0-32.0 [facility] Comment on above: Order Comment: 157 Performed By: #### L 501.5200, L500.2500 #### [facility] [address] [place], [address] Creatinine [Mass/Vol] 1.37 mg/dL High 0.55-1.02 [facility] Comment on above: Order Comment: 157 Result Comment: The validity of the calculated GFR GFRAA in patients over 70 years has not been determined. Clinical correlation is essential. Performed By: #### L 501.5200, L500.2500 #### [facility] [address] [place], [address] EST GFR - AA 48 mL/min Low >60 [facility] Comment on above: Order Comment: 157 Result Comment: Afri can Thai GFR Calc Performed By: #### L 501.5200, L500.2500 #### [facility] [address] [place], [address] GAP 5 Normal 5-15 [facility] Comment on above: Order Comment: 157 Performed By: #### L 501.5200, L500.2500 #### [facility] [address] [place], [address] GFR/1.73 sq M.predicted among non-blacks MDRD (S/P/Bld) [Vol rate/Area] 39 mL/min/{1.73_m2} Low >60 [facility] Comment on above: Order Comment: 157 Result Comment: Non- GFR Calc Performed By: #### L 501.5200, L500.2500 #### [facility] [address] [place], [address] Glucose [Mass/Vol] 217 mg/dL High 74-106 [facility] Comment on above: Order Comment: 157 Result Comment: Gluc ose result greater than or equal to 200 mg/dL suggests DIABETES MELLITUS per A.D.A. criteria. Performed By: #### L 501.5200, L500.2500 #### [facility] [address] [place], [address] Potassium [Moles/Vol] 4.0 mmol/L Normal 3.5-5.1 [facility] Comment on above: Order Comment: 157 Performed By: #### L 501.5200, L500.2500 #### [facility] [address] [place], [address] Sodium [Moles/Vol] 140 mmol/L Normal 136-145 [facility] Comment on above: Order Comment: 157 Performed By: #### L 501.5200, L500.2500 #### [facility] [address] [place], [address] Urea nitrogen [Mass/Vol] 33 mg/dL High 7-18 [facility] Comment on above: Order Comment: 157 Performed By: #### L 501.5200, L500.2500 #### [facility] [address] [place], [address] Urinalysis, Completeon 01-08 BACTERIA 4+ /hpf Normal None Seen [facility] Comment on above: Order Comment: CLEAN CATCH Performed By: #### M 100.2200, L400.0001 #### [facility] [address] [place], [address] EPI,SQUAMOUS 0-5 SEEN Normal 5-10 [facility] Comment on above: Order Comment: CLEAN CATCH Performed By: #### M 100.2200, L400.0001 #### [facility] [address] [place], [address] RBC 0-5 SEEN Normal 0-5 [facility] Comment on above: Order Comment: CLEAN CATCH Performed By: #### M 100.2200, L400.0001 #### [facility] [address] [place], [address] WBC 10-25 SEEN Normal 0-5 [facility] Comment on above: Order Comment: CLEAN CATCH Performed By: #### M 100.2200, L400.0001 #### [facility] [address] [place], [address] Mucus Ql (Urine sed) 0 SEEN Normal [facility] Comment on above: Order Comment: CLEAN CATCH Performed By: #### M 100.2200, L400.0001 #### [facility] [address] [place], [address] Basic Metabolic Profile (BMP )on 01-05-2024 BUN/CRE 21.6 RATIO High 10-20 [facility] Comment on above: Performed By: #### L 501.5200, L500.2500 #### [facility] [address] [place], [address] CA,Total 8.8 mg/dL Normal 8.5-10.1 [facility] Comment on above: Performed By: #### L 501.5200, L500.2500 #### [facility] [address] [place], [address] Chloride [Moles/Vol] 104 mmol/L Normal 98-107 [facility] Comment on above: Performed By: #### L 501.5200, L500.2500 #### [facility] [address] [place], [address] CO2 [Moles/Vol] 30.0 mmol/L Normal 21.0-32.0 [facility] Comment on above: Performed By: #### L 501.5200, L500.2500 #### [facility] [address] [place], [address] Creatinine [Mass/Vol] 1.11 mg/dL High 0.55-1.02 [facility] Comment on above: Result Comment: The validity of the calculated GFR GFRAA in patients over 70 years has not been determined. Clinical correlation is essential. Performed By: #### L 501.5200, L500.2500 #### [facility] [address] [place], [address] EST GFR - AA 61 mL/min Normal >60 [facility] Comment on above: Result Comment: Afri can Thai GFR Calc Performed By: #### L 501.5200, L500.2500 #### [facility] [address] [place], [address] GAP 6 Normal 5-15 [facility] Comment on above: Performed By: #### L 501.5200, L500.2500 #### [facility] [address] [place], [address] GFR/1.73 sq M.predicted among non-blacks MDRD (S/P/Bld) [Vol rate/Area] 50 mL/min/{1.73_m2} Low >60 [facility] Comment on above: Result Comment: Non- GFR Calc Performed By: #### L 501.5200, L500.2500 #### [facility] [address] [place], [address] Glucose [Mass/Vol] 97 mg/dL Normal 74-106 [facility] Comment on above: Performed By: #### L 501.5200, L500.2500 #### [facility] [address] [place], [address] Potassium [Moles/Vol] 3.7 mmol/L Normal 3.5-5.1 [facility] Comment on above: Performed By: #### L 501.5200, L500.2500 #### [facility] [address] [place], [address] Sodium [Moles/Vol] 140 mmol/L Normal 136-145 [facility] Comment on above: Performed By: #### L 501.5200, L500.2500 #### [facility] [address] [place], [address] Urea nitrogen [Mass/Vol] 24 mg/dL High 7-18 [facility] Comment on above: Performed By: #### L 501.5200, L500.2500 #### [facility] [address] [place], [address] Progress Noteon 01-03-2024 Progress Note error Normal [facility] Progress Noteon 12-29-2023 Progress Note Please schedule AWV. Normal S [facility] Progress Note Called patient---moustapha ne number is not working--sent letter by mail. Normal [facility] Basic Metabolic Profile (BMP )on 12-22-2023 BUN/CRE 19.8 RATIO Normal 10-20 [facility] Comment on above: Order Comment: 157 Performed By: #### L 501.9985, L500.4100, L500.2500, L100.0500 #### [facility] [address] [place], [address] CA,Total 8.9 mg/dL Normal 8.5-10.1 [facility] Comment on above: Order Comment: 157 Performed By: #### L 501.9985, L500.4100, L500.2500, L100.0500 #### [facility] [address] [place], [address] Chloride [Moles/Vol] 102 mmol/L Normal 98-107 [facility] Comment on above: Order Comment: 157 Performed By: #### L [id number], L500.4100, L500.2500, L100.0500 #### [facility] [address] [place], [address] CO2 [Moles/Vol] 32.0 mmol/L Normal 21.0-32.0 [facility] Comment on above: Order Comment: 157 Performed By: #### L 501.9985, L500.4100, L500.2500, L100.0500 #### [facility] [address] [place], [address] Creatinine [Mass/Vol] 1.11 mg/dL High 0.55-1.02 [facility] Comment on above: Order Comment: 157 Result Comment: The validity of the calculated GFR GFRAA in patients over 70 years has not been determined. Clinical correlation is essential. Performed By: #### L 501.9985, L500.4100, L500.2500, L100.0500 #### [facility] [address] [place], [address] EST GFR - AA 61 mL/min Normal >60 [facility] Comment on above: Order Comment: 157 Result Comment: Afri can Thai GFR Calc Performed By: #### L 501.9985, L500.4100, L500.2500, L100.0500 #### [facility] [address] [place], [address] GAP 6 Normal 5-15 [facility] Comment on above: Order Comment: 157 Performed By: #### L 501.9985, L500.4100, L500.2500, L100.0500 #### [facility] [address] [place], [address] GFR/1.73 sq M.predicted among non-blacks MDRD (S/P/Bld) [Vol rate/Area] 50 mL/min/{1.73_m2} Low >60 [facility] Comment on above: Order Comment: 157 Result Comment: Non- GFR Calc Performed By: #### L [id number], L500.4100, L500.2500, L100.0500 #### [facility] [address] [place], [address] Glucose [Mass/Vol] 245 mg/dL High 74-106 [facility] Comment on above: Order Comment: 157 Result Comment: Gluc ose result greater than or equal to 200 mg/dL suggests DIABETES MELLITUS per A.D.A. criteria. Performed By: #### L [id number], L500.4100, L500.2500, L100.0500 #### [facility] [address] [place], [address] Potassium [Moles/Vol] 3.5 mmol/L Normal 3.5-5.1 [facility] Comment on above: Order Comment: 157 Performed By: #### L [id number], L500.4100, L500.2500, L100.0500 #### [facility] [address] [place], [address] Sodium [Moles/Vol] 140 mmol/L Normal 136-145 [facility] Comment on above: Order Comment: 157 Performed By: #### L [id number], L500.4100, L500.2500, L100.0500 #### [facility] [address] [place], [address] Urea nitrogen [Mass/Vol] 22 mg/dL High 7-18 [facility] Comment on above: Order Comment: 157 Performed By: #### L [id number], L500.4100, L500.2500, L100.0500 #### [facility] [address] [place], [address] CBC-Complete Blood Cnt No Di ffon 12-22-2023 Erythrocyte distribution width (RBC) [Ratio] 13.9 % Normal 11.6-14.6 [facility] Comment on above: Order Comment: 157 Performed By: #### L [id number], L500.4100, L500.2500, L100.0500 #### [facility] [address] [place], [address] Hematocrit (Bld) [Volume fraction] 39.1 % Normal 37-47 [facility] Comment on above: Order Comment: 157 Performed By: #### L [id number], L500.4100, L500.2500, L100.0500 #### [facility] [address] [place], [address] Hemoglobin (Bld) [Mass/Vol] 11.8 g/dL Low 12.0-15.0 [facility] Comment on above: Order Comment: 157 Performed By: #### L [id number], L500.4100, L500.2500, L100.0500 #### [facility] [address] [place], [address] MCH (RBC) [Entitic mass] 28.2 pg Normal 27.0-32.0 [facility] Comment on above: Order Comment: 157 Performed By: #### L [id number], L500.4100, L500.2500, L100.0500 #### [facility] [address] [place], [address] MCHC (RBC) [Mass/Vol] 30.2 g/dL Low 32-36 [facility] Comment on above: Order Comment: 157 Performed By: #### L [id number], L500.4100, L500.2500, L100.0500 #### [facility] [address] [place], [address] MCV (RBC) [Entitic vol] 93.3 fL Normal 81-99 [facility] Comment on above: Order Comment: 157 Performed By: #### L [id number], L500.4100, L500.2500, L100.0500 #### [facility] [address] [place], [address] Platelet mean volume (Bld) [Entitic vol] 10.3 fL Normal 6.2-12.0 [facility] Comment on above: Order Comment: 157 Performed By: #### L [id number], L500.4100, L500.2500, L100.0500 #### [facility] [address] [place], [address] Platelets (Bld) [#/Vol] 250 10*3/uL Normal 150-450 [facility] Comment on above: Order Comment: 157 Performed By: #### L [id number], L500.4100, L500.2500, L100.0500 #### [facility] [address] [place], [address] RBC (Bld) [#/Vol] 4.19 10*6/uL Low 4.2-5.4 [facility] Comment on above: Order Comment: 157 Performed By: #### L [id number], L500.4100, L500.2500, L100.0500 #### [facility] [address] [place], [address] RDW SD 47.2 fl High 35.1-43.9 [facility] Comment on above: Order Comment: 157 Performed By: #### L [id number], L500.4100, L500.2500, L100.0500 #### [facility] [address] [place], [address] WBC (Bld) [#/Vol] 8.0 10*3/uL Normal 4.4-11.0 [facility] Comment on above: Order Comment: 157 Performed By: #### L [id number], L500.4100, L500.2500, L100.0500 #### [facility] [address] [place], [address] Hemoglobin A1con 12-22-2023 HbA1c (Bld) [Mass fraction] 6.6 % High 3.8-5.6 [facility] Comment on above: Order Comment: 157 Result Comment: Norm al < 5.7 % Prediabetic 5.7 - 6.4 % Diabetic >or= 6.5 % Please note range changes. Performed By: #### L [id number], L500.4100, L500.2500, L100.0500 #### [facility] [address] [place], [address] Lipid Profileon 12-22-2023 Cholesterol [Mass/Vol] 138 mg/dL Normal 200 [facility] Comment on above: Order Comment: 157 Result Comment: <200 mg/dL Desirable 200-240 mg/dL Borderline >240 mg/dL High Risk Performed By: #### L 501.9985, L500.4100, L500.2500, L100.0500 #### [facility] [address] [place], [address] Cholesterol in HDL [Mass/Vol] 51 mg/dL Normal [facility] Comment on above: Order Comment: 157 Result Comment: The drugs N-Acetylcysteine and Metamizole may falsely depress this assay. Reference Range HDL <40 mg/dL Low HDL Cholesterol HDL >or= 60 mg/dL High HDL Cholesterol Performed By: #### L [id number], L500.4100, L500.2500, L100.0500 #### [facility] [address] [place], [address] Cholesterol in LDL [Mass/Vol] 66 mg/dL Normal 0-130 [facility] Comment on above: Order Comment: 157 Performed By: #### L [id number], L500.4100, L500.2500, L100.0500 #### [facility] [address] [place], [address] Cholesterol in VLDL [Mass/Vol] 21 mg/dL Normal 5-40 [facility] Comment on above: Order Comment: 157 Performed By: #### L [id number], L500.4100, L500.2500, L100.0500 #### [facility] [address] [place], [address] Triglyceride [Mass/Vol] 103 mg/dL Normal [facility] Comment on above: Order Comment: 157 Result Comment: The drugs N-Acetylcysteine and Metamizole may falsely depress this assay. Serum Triglycerides Reference Interval Normal <150 mg/dL Borderline high 150 - 199 mg/dL High 200 - 499 mg/dL Very High > or = 500 mg/dL Performed By: #### L [id number], L500.4100, L500.2500, L100.0500 #### [facility] [address] [place], [address] Basic Metabolic Profile (BMP )on 12-08-2023 BUN/CRE 16.1 RATIO Normal 10-20 [facility] Comment on above: Order Comment: 157 Performed By: #### L 500.2500, L501.5200 #### [facility] [address] [place], [address] CA,Total 9.4 mg/dL Normal 8.5-10.1 [facility] Comment on above: Order Comment: 157 Performed By: #### L 500.2500, L501.5200 #### [facility] [address] [place], [address] Chloride [Moles/Vol] 102 mmol/L Normal 98-107 [facility] Comment on above: Order Comment: 157 Performed By: #### L 500.2500, L501.5200 #### [facility] [address] [place], [address] CO2 [Moles/Vol] 26.0 mmol/L Normal 21.0-32.0 [facility] Comment on above: Order Comment: 157 Performed By: #### L 500.2500, L501.5200 #### [facility] [address] [place], [address] Creatinine [Mass/Vol] 1.37 mg/dL High 0.55-1.02 [facility] Comment on above: Order Comment: 157 Result Comment: The validity of the calculated GFR GFRAA in patients over 70 years has not been determined. Clinical correlation is essential. Performed By: #### L 500.2500, L501.5200 #### [facility] [address] [place], [address] EST GFR - AA 48 mL/min Low >60 [facility] Comment on above: Order Comment: 157 Result Comment: Afri can Thai GFR Calc Performed By: #### L 500.2500, L501.5200 #### [facility] [address] [place], [address] GAP 7 Normal 5-15 [facility] Comment on above: Order Comment: 157 Performed By: #### L 500.2500, L501.5200 #### [facility] [address] [place], [address] GFR/1.73 sq M.predicted among non-blacks MDRD (S/P/Bld) [Vol rate/Area] 39 mL/min/{1.73_m2} Low >60 [facility] Comment on above: Order Comment: 157 Result Comment: Non- GFR Calc Performed By: #### L 500.2500, L501.5200 #### [facility] [address] [place], [address] Glucose [Mass/Vol] 122 mg/dL High 74-106 [facility] Comment on above: Order Comment: 157 Result Comment: Fast ing Glucose result from 100 to 125 mg/dL suggests IMPAIRED HOMEOSTASIS per A.D.A. criteria. Performed By: #### L 500.2500, L501.5200 #### [facility] [address] [place], [address] Potassium [Moles/Vol] 3.9 mmol/L Normal 3.5-5.1 [facility] Comment on above: Order Comment: 157 Performed By: #### L 500.2500, L501.5200 #### [facility] [address] [place], [address] Sodium [Moles/Vol] 135 mmol/L Low 136-145 [facility] Comment on above: Order Comment: 157 Performed By: #### L 500.2500, L501.5200 #### [facility] [address] [place], [address] Urea nitrogen [Mass/Vol] 22 mg/dL High 7-18 [facility] Comment on above: Order Comment: 157 Performed By: #### L 500.2500, L501.5200 #### [facility] [address] [place], [address] Basic Metabolic Profile (BMP )on 12-04-2023 BUN/CRE 20.1 RATIO High 10-20 [facility] Comment on above: Performed By: #### L 500.2500, L501.5200 #### [facility] [address] [place], [address] CA,Total 8.5 mg/dL Normal 8.5-10.1 [facility] Comment on above: Performed By: #### L 500.2500, L501.5200 #### [facility] [address] [place], [address] Chloride [Moles/Vol] 104 mmol/L Normal 98-107 [facility] Comment on above: Performed By: #### L 500.2500, L501.5200 #### [facility] [address] [place], [address] CO2 [Moles/Vol] 29.0 mmol/L Normal 21.0-32.0 [facility] Comment on above: Performed By: #### L 500.2500, L501.5200 #### [facility] [address] [place], [address] Creatinine [Mass/Vol] 0.94 mg/dL Normal 0.55-1.02 [facility] Comment on above: Result Comment: The validity of the calculated GFR GFRAA in patients over 70 years has not been determined. Clinical correlation is essential. Performed By: #### L 500.2500, L501.5200 #### [facility] [address] [place], [address] EST GFR - AA 73 mL/min Normal >60 [facility] Comment on above: Result Comment: Afri can Thai GFR Calc Performed By: #### L 500.2500, L501.5200 #### [facility] [address] [place], [address] GAP 5 Normal 5-15 [facility] Comment on above: Performed By: #### L 500.2500, L501.5200 #### [facility] [address] [place], [address] GFR/1.73 sq M.predicted among non-blacks MDRD (S/P/Bld) [Vol rate/Area] 61 mL/min/{1.73_m2} Normal >60 [facility] Comment on above: Result Comment: Non- GFR Calc Performed By: #### L 500.2500, L501.5200 #### [facility] [address] [place], [address] Glucose [Mass/Vol] 181 mg/dL High 74-106 [facility] Comment on above: Result Comment: Fast ing Glucose result greater than or equal to 126 mg/dL suggests DIABETES MELLITUS per A.D.A. criteria. Performed By: #### L 500.2500, L501.5200 #### [facility] [address] [place], [address] Potassium [Moles/Vol] 3.7 mmol/L Normal 3.5-5.1 [facility] Comment on above: Performed By: #### L 500.2500, L501.5200 #### [facility] [address] [place], [address] Sodium [Moles/Vol] 138 mmol/L Normal 136-145 [facility] Comment on above: Performed By: #### L 500.2500, L501.5200 #### [facility] [address] [place], [address] Urea nitrogen [Mass/Vol] 19 mg/dL High 7-18 [facility] Comment on above: Performed By: #### L 500.2500, L501.5200 #### [facility] [address] [place], [address] 36on 10-27-2023 36 Spoke with jaylon Pascual it was a mistake and he did not need anything for the patient. [facility] 36on 10-26-2023 36 As far as I know she still considers us her primary care however she misses a lot of appointments and cancels at other times. [facility] 36 Name of caller: Ankur Valdivia Contact phone number: [phone] Relationship to Patient: [facility] Provider: Dr Lopez Practice: [facility] Chief Complaint/Reason for Call: Ankur Valdivia from [facility] would like to confirm that patient is still being treated at this office. Please advise. Best time of day caller can be reached: any Patient advised that office/PCP has 24-48 business hours to return their call: Yes Normal [facility] Basophil percentageOrdered B y: Melissa Reed on 09-29-2023 Chloride [Moles/Vol] 106 mmol/L 98-107 [facility] Glucose [Mass/Vol] 165 mg/dL 74-106 [facility] Comment on above: Fasting Glucose resu lt greater than or equal to 126 mg/dL suggests DIABETES MELLITUS per A.D.A. criteria. Potassium [Moles/Vol] 3.5 mmol/L 3.5-5.1 [facility] Sodium [Moles/Vol] 135 mmol/L 136-145 [facility] - Chemistry and C hemistry - challengeOrdered By: Melissa Reed on 09-29-2023 CO2 [Moles/Vol] 26.0 mmol/L 21.0-32.0 [facility] Urea nitrogen/Creatinine [Mass ratio] 23.7 mg/mg 10-20 [facility] No Panel InformationOrdered By: Melissa Reed on 09-29-2023 Estimated GFR (MDRD) Amer 57 mL/min >60 [facility] Comment on above: GFR Calc Estimated GFR (MDRD) Non-Af Amer 47 mL/min >60 [facility] Comment on above: Non- GFR Calc Serum or plasma calcium danae urement (mass/volume)Ordered By: Melissa Reed on 09-29-2023 Calcium [Mass/Vol] 8.5 mg/dL 8.5-10.1 [facility] Serum or plasma creatinine m easurement (mass/volume)Ordered By: Melissa Reed on 09-29-2023 Creatinine [Mass/Vol] 1.18 mg/dL 0.55-1.02 [facility] Comment on above: The validity of the calculated GFR & GFRAA in patients over 70 years has not been determined. Clinical correlation is essential. Serum or plasma urea nitroge n measurement (mass/volume)Ordered By: Melissa Reed on 09-29-2023 Urea nitrogen [Mass/Vol] 28 mg/dL 7-18 [facility] Thin prep Papanicolaou smear with manual screeningOrdered By: Melissa Reed on 09-29-2023 Thin prep Papanicolaou smear with manual screening 3 5-15 [facility] Basophil percentageOrdered B y: Melissa Reed on 09-14-2023 Chloride [Moles/Vol] 106 mmol/L 98-107 [facility] Glucose [Mass/Vol] 191 mg/dL 74-106 [facility] Comment on above: Fasting Glucose resu lt greater than or equal to 126 mg/dL suggests DIABETES MELLITUS per A.D.A. criteria. Potassium [Moles/Vol] 3.8 mmol/L 3.5-5.1 [facility] Sodium [Moles/Vol] 138 mmol/L 136-145 [facility] - Chemistry and C hemistry - challengeOrdered By: Melissa Reed on 09-14-2023 CO2 [Moles/Vol] 29.0 mmol/L 21.0-32.0 [facility] Urea nitrogen/Creatinine [Mass ratio] 17.8 mg/mg 10-20 [facility] No Panel InformationOrdered By: Melissa Reed on 09-14-2023 Estimated GFR (MDRD) Amer 63 mL/min >60 [facility] Comment on above: GFR Calc Estimated GFR (MDRD) Non-Af Amer 52 mL/min >60 [facility] Comment on above: Non- GFR Calc Serum or plasma calcium danae urement (mass/volume)Ordered By: Melissa Reed on 09-14-2023 Calcium [Mass/Vol] 8.7 mg/dL 8.5-10.1 [facility] Serum or plasma creatinine m easurement (mass/volume)Ordered By: Melissa Reed on 09-14-2023 Creatinine [Mass/Vol] 1.07 mg/dL 0.55-1.02 [facility] Comment on above: The validity of the calculated GFR & GFRAA in patients over 70 years has not been determined. Clinical correlation is essential. Serum or plasma urea nitroge n measurement (mass/volume)Ordered By: Melissa Reed on 09-14-2023 Urea nitrogen [Mass/Vol] 19 mg/dL 7-18 [facility] Thin prep Papanicolaou smear with manual screeningOrdered By: Melissa Reed on 09-14-2023 Thin prep Papanicolaou smear with manual screening 3 5-15 [facility] Basophil percentageOrdered B y: Melissa Reed on 08-31-2023 Chloride [Moles/Vol] 104 mmol/L 98-107 [facility] Glucose [Mass/Vol] 169 mg/dL 74-106 [facility] Comment on above: Fasting Glucose resu lt greater than or equal to 126 mg/dL suggests DIABETES MELLITUS per A.D.A. criteria. Potassium [Moles/Vol] 3.6 mmol/L 3.5-5.1 [facility] Sodium [Moles/Vol] 140 mmol/L 136-145 [facility] - Chemistry and C hemistry - challengeOrdered By: Melissa Reed on 08-31-2023 CO2 [Moles/Vol] 30.0 mmol/L 21.0-32.0 [facility] Urea nitrogen/Creatinine [Mass ratio] 20.3 mg/mg 10-20 [facility] No Panel InformationOrdered By: Melissa Reed on 08-31-2023 Estimated GFR (MDRD) Amer 57 mL/min >60 [facility] Comment on above: GFR Calc Estimated GFR (MDRD) Non-Af Amer 47 mL/min >60 [facility] Comment on above: Non- GFR Calc Serum or plasma calcium danae urement (mass/volume)Ordered By: Melissa Reed on 08-31-2023 Calcium [Mass/Vol] 8.9 mg/dL 8.5-10.1 [facility] Serum or plasma creatinine m easurement (mass/volume)Ordered By: Melissa Reed on 08-31-2023 Creatinine [Mass/Vol] 1.18 mg/dL 0.55-1.02 [facility] Comment on above: The validity of the calculated GFR & GFRAA in patients over 70 years has not been determined. Clinical correlation is essential. Serum or plasma urea nitroge n measurement (mass/volume)Ordered By: Melissa Reed on 08-31-2023 Urea nitrogen [Mass/Vol] 24 mg/dL 7-18 [facility] Thin prep Papanicolaou smear with manual screeningOrdered By: Melissa Reed on 08-31-2023 Thin prep Papanicolaou smear with manual screening 6 5-15 [facility] Basophil percentageOrdered B y: Melissa Reed on 08-17-2023 Chloride [Moles/Vol] 105 mmol/L 98-107 [facility] Glucose [Mass/Vol] 192 mg/dL 74-106 [facility] Comment on above: Fasting Glucose resu lt greater than or equal to 126 mg/dL suggests DIABETES MELLITUS per A.D.A. criteria. Potassium [Moles/Vol] 3.8 mmol/L 3.5-5.1 [facility] Sodium [Moles/Vol] 138 mmol/L 136-145 [facility] - Chemistry and C hemistry - challengeOrdered By: Melissa Reed on 08-17-2023 CO2 [Moles/Vol] 29.0 mmol/L 21.0-32.0 [facility] Urea nitrogen/Creatinine [Mass ratio] 22.8 mg/mg 10-20 [facility] No Panel InformationOrdered By: Melissa Reed on 08-17-2023 Estimated GFR (MDRD) Amer 59 mL/min >60 [facility] Comment on above: GFR Calc Estimated GFR (MDRD) Non-Af Amer 49 mL/min >60 [facility] Comment on above: Non- GFR Calc Serum or plasma calcium danae urement (mass/volume)Ordered By: Melissa Reed on 08-17-2023 Calcium [Mass/Vol] 8.8 mg/dL 8.5-10.1 [facility] Serum or plasma creatinine m easurement (mass/volume)Ordered By: Melissa Reed on 08-17-2023 Creatinine [Mass/Vol] 1.14 mg/dL 0.55-1.02 [facility] Comment on above: The validity of the calculated GFR & GFRAA in patients over 70 years has not been determined. Clinical correlation is essential. Serum or plasma urea nitroge n measurement (mass/volume)Ordered By: Melissa Reed on 08-17-2023 Urea nitrogen [Mass/Vol] 26 mg/dL 7-18 [facility] Thin prep Papanicolaou smear with manual screeningOrdered By: Melissa Reed on 08-17-2023 Thin prep Papanicolaou smear with manual screening 4 5-15 [facility] Basophil percentageOrdered B y: Melissa Reed on 08-14-2023 Chloride [Moles/Vol] 104 mmol/L 98-107 [facility] Glucose [Mass/Vol] 146 mg/dL 74-106 [facility] Comment on above: Fasting Glucose resu lt greater than or equal to 126 mg/dL suggests DIABETES MELLITUS per A.D.A. criteria. Potassium [Moles/Vol] 3.4 mmol/L 3.5-5.1 [facility] Sodium [Moles/Vol] 138 mmol/L 136-145 [facility] - Chemistry and C hemistry - challengeOrdered By: Melissa Reed on 08-14-2023 CO2 [Moles/Vol] 29.0 mmol/L 21.0-32.0 [facility] Urea nitrogen/Creatinine [Mass ratio] 24.8 mg/mg 10-20 [facility] No Panel InformationOrdered By: Melissa Reed on 08-14-2023 Estimated GFR (MDRD) Amer 60 mL/min >60 [facility] Comment on above: GFR Calc Estimated GFR (MDRD) Non-Af Amer 49 mL/min >60 [facility] Comment on above: Non- GFR Calc Serum or plasma calcium danae urement (mass/volume)Ordered By: Melissa Reed on 08-14-2023 Calcium [Mass/Vol] 9.1 mg/dL 8.5-10.1 [facility] Serum or plasma creatinine m easurement (mass/volume)Ordered By: Melissa Reed on 08-14-2023 Creatinine [Mass/Vol] 1.13 mg/dL 0.55-1.02 [facility] Comment on above: The validity of the calculated GFR & GFRAA in patients over 70 years has not been determined. Clinical correlation is essential. Serum or plasma urea nitroge n measurement (mass/volume)Ordered By: Melissa Reed on 08-14-2023 Urea nitrogen [Mass/Vol] 28 mg/dL 7-18 [facility] Thin prep Papanicolaou smear with manual screeningOrdered By: Melissa Reed on 08-14-2023 Thin prep Papanicolaou smear with manual screening 5 5-15 [facility] Basophil percentageOrdered B y: Melissa Reed on 07-31-2023 Chloride [Moles/Vol] 107 mmol/L 98-107 [facility] Glucose [Mass/Vol] 149 mg/dL 74-106 [facility] Comment on above: Fasting Glucose resu lt greater than or equal to 126 mg/dL suggests DIABETES MELLITUS per A.D.A. criteria. Potassium [Moles/Vol] 3.4 mmol/L 3.5-5.1 [facility] Sodium [Moles/Vol] 142 mmol/L 136-145 [facility] - Chemistry and C hemistry - challengeOrdered By: Melissa Reed on 07-31-2023 CO2 [Moles/Vol] 30.0 mmol/L 21.0-32.0 [facility] Urea nitrogen/Creatinine [Mass ratio] 21.7 mg/mg 10-20 [facility] [facility] No Panel InformationOrdered By: Melissa Reed on 07-31-2023 Estimated GFR (MDRD) Amer 64 mL/min >60 [facility] Comment on above: GFR Calc Estimated GFR (MDRD) Non-Af Amer 53 mL/min >60 [facility] Comment on above: Non- GFR Calc Serum or plasma calcium danae urement (mass/volume)Ordered By: Melissa Reed on 07-31-2023 Calcium [Mass/Vol] 8.7 mg/dL 8.5-10.1 [facility] Serum or plasma creatinine m easurement (mass/volume)Ordered By: Melissa Reed on 07-31-2023 Creatinine [Mass/Vol] 1.06 mg/dL 0.55-1.02 [facility] Comment on above: The validity of the calculated GFR & GFRAA in patients over 70 years has not been determined. Clinical correlation is essential. Serum or plasma urea nitroge n measurement (mass/volume)Ordered By: Melissa Reed on 07-31-2023 Urea nitrogen [Mass/Vol] 23 mg/dL 7-18 [facility] Thin prep Papanicolaou smear with manual screeningOrdered By: Melissa Reed on 07-31-2023 Thin prep Papanicolaou smear with manual screening 5 5-15 [facility] Basophil percentageOrdered B y: Melissa Reed on 07-17-2023 Chloride [Moles/Vol] 106 mmol/L 98-107 [facility] Glucose [Mass/Vol] 141 mg/dL 74-106 [facility] Comment on above: Fasting Glucose resu lt greater than or equal to 126 mg/dL suggests DIABETES MELLITUS per A.D.A. criteria. Potassium [Moles/Vol] 4.0 mmol/L 3.5-5.1 [facility] Comment on above: Moderate Hemolysis, Result may be falsely increased. Sodium [Moles/Vol] 137 mmol/L 136-145 [facility] - Chemistry and C hemistry - challengeOrdered By: Melissa Reed on 07-17-2023 CO2 [Moles/Vol] 29.0 mmol/L 21.0-32.0 [facility] Urea nitrogen/Creatinine [Mass ratio] 22.6 mg/mg 10-20 [facility] No Panel InformationOrdered By: Melissa Reed on 07-17-2023 Estimated GFR (MDRD) Amer 58 mL/min >60 [facility] Comment on above: GFR Calc Estimated GFR (MDRD) Non-Af Amer 48 mL/min >60 [facility] Comment on above: Non- GFR Calc Serum or plasma calcium danae urement (mass/volume)Ordered By: Melissa Reed on 07-17-2023 Calcium [Mass/Vol] 9.3 mg/dL 8.5-10.1 [facility] Serum or plasma creatinine m easurement (mass/volume)Ordered By: Melissa Reed on 07-17-2023 Creatinine [Mass/Vol] 1.15 mg/dL 0.55-1.02 [facility] Comment on above: The validity of the calculated GFR & GFRAA in patients over 70 years has not been determined. Clinical correlation is essential. Serum or plasma urea nitroge n measurement (mass/volume)Ordered By: Melissa Reed on 07-17-2023 Urea nitrogen [Mass/Vol] 26 mg/dL 7-18 [facility] Thin prep Papanicolaou smear with manual screeningOrdered By: Melissa Reed on 07-17-2023 Thin prep Papanicolaou smear with manual screening 2 5-15 [facility] Basophil percentageOrdered B y: Melissa Reed on 07-03-2023 Chloride [Moles/Vol] 106 mmol/L 98-107 [facility] Glucose [Mass/Vol] 134 mg/dL 74-106 [facility] Comment on above: Fasting Glucose resu lt greater than or equal to 126 mg/dL suggests DIABETES MELLITUS per A.D.A. criteria. Potassium [Moles/Vol] 4.0 mmol/L 3.5-5.1 [facility] Sodium [Moles/Vol] 140 mmol/L 136-145 [facility] - Chemistry and C hemistry - challengeOrdered By: Melissa Reed on 07-03-2023 CO2 [Moles/Vol] 28.0 mmol/L 21.0-32.0 [facility] Urea nitrogen/Creatinine [Mass ratio] 20.5 mg/mg 10-20 [facility] No Panel InformationOrdered By: Melissa Reed on 07-03-2023 Estimated GFR (MDRD) Amer 71 mL/min >60 [facility] Comment on above: GFR Calc Estimated GFR (MDRD) Non-Af Amer 58 mL/min >60 [facility] Comment on above: Non- GFR Calc Serum or plasma calcium danae urement (mass/volume)Ordered By: Melissa Reed on 07-03-2023 Calcium [Mass/Vol] 8.6 mg/dL 8.5-10.1 [facility] Serum or plasma creatinine m easurement (mass/volume)Ordered By: Melissa Reed on 07-03-2023 Creatinine [Mass/Vol] 0.98 mg/dL 0.55-1.02 [facility] Comment on above: The validity of the calculated GFR & GFRAA in patients over 70 years has not been determined. Clinical correlation is essential. Serum or plasma urea nitroge n measurement (mass/volume)Ordered By: Melissa Reed on 07-03-2023 Urea nitrogen [Mass/Vol] 20 mg/dL 7-18 [facility] Thin prep Papanicolaou smear with manual screeningOrdered By: Melissa Reed on 07-03-2023 Thin prep Papanicolaou smear with manual screening 6 5-15 [facility] Culture, urineOrdered By: Sd Reed on 06-23-2023 Bacteria identified Cx Nom (U) ESBL Escherichia coli [facility] Progress Noteon 06-23-2023 Progress Note EMR reviewed. The patient was at [facility] for several weeks after a hospitalization. [facility] called and spoke with a staff member today and the patient was discharged to the [facility] facility. PMH: RLS, HTN, GI-BLEED, CKD3, DM2, HYPOTHYROID, ANXIETY, DEPRESSION, HYPOKALEMIA, HYPERLIPIDEMIA HTN MEDS: AMLODIPINE 10MG DAILY SHE STATED THE NURSE HAS BEEN CHECKING HER BP'S 3 TIMES DAILY DM MEDS: LANTUS INSULIN 19 UNITS DAILY HUMALOG INSULIN 10 UNITS 3 TIMES DAILY WITH MEALS [id number] ON 03/01/23 THE PATIENT STATED SHE IS UNSURE OF WHAT INSULIN THEY ARE GIVING HER. THE NURSE IS MONITORING HER BLOOD SUGARS BEFORE EVERY MEAL. THE PATIENT DOESN'T KNOW WHAT HER READINGS HAVE BEEN. [facility] CALLED THE PATIENT'S SON-MAXIMINO AND RECEIVED THE PATIENT'S NEW PHONE NUMBER. [facility] CALLED THE PATIENT AND SHE STATED SHE WAS TRANSFERRED TO [facility] ABOUT 1 WEEK AGO. SHE IS NOW IN HER OWN APARTMENT. THEY PROVIDE THE PATIENT WITH HER MEDICATIONS AND 3 MEALS DAILY. THEY DO HER CLEANING AND LAUNDRY. THE PATIENT STATED SHE HAS BEEN DOING WELL. SHE IS USING HER WALKER. DENIES ANY FALLS. SHE IS NOW SEEING THE DOCTOR AT THE [facility]. SDOH COMPLETED. CM WILL DISCHARGE THE PATIENT FROM THE [facility] MG[facility]. PROGRAM DUE TO PCP CHANGING. Normal [facility] Absolute lymphocyte countOrd ered By: Melissa Reed on 06-20-2023 Lymphocytes Auto (Unsp spec) [#/Vol] 1.72 10*3/uL 0.83-4.51 [facility] Basophil percentageOrdered B y: Melissa Reed on 06-20-2023 Basophils/100 WBC (Bld) 1.0 % 0-1 [facility] Chloride [Moles/Vol] 108 mmol/L 98-107 [facility] Eosinophils/100 WBC (Bld) 7.8 % 0-5 [facility] Glucose [Mass/Vol] 155 mg/dL 74-106 [facility] Comment on above: Fasting Glucose resu lt greater than or equal to 126 mg/dL suggests DIABETES MELLITUS per A.D.A. criteria. Neutrophils (Bld) [#/Vol] 5.3 10*3/uL 2.0-7.7 [facility] Neutrophils/100 WBC (Bld) 61.1 % 47-70 [facility] Potassium [Moles/Vol] 4.0 mmol/L 3.5-5.1 [facility] Sodium [Moles/Vol] 140 mmol/L 136-145 [facility] WBC (Bld) [#/Vol] 8.6 10*3/uL 4.4-11.0 [facility] Blood erythrocytes count (nu mber/volume)Ordered By: Melissa Reed on 06-20-2023 RBC (Bld) [#/Vol] 3.97 10*6/uL 4.2-5.4 [facility] Blood hemoglobin measurement (mass/volume)Ordered By: Melissa Reed on 06-20-2023 Hemoglobin (Bld) [Mass/Vol] 11.0 g/dL 12.0-15.0 [facility] Blood lymphocytes/100 leukoc ytesOrdered By: Melissa Reed on 06-20-2023 Lymphocytes/100 WBC (Bld) 20.0 % 19-41 [facility] Blood monocytes/100 leukocyt esOrdered By: Melissa Reed on 06-20-2023 Monocytes/100 WBC (Bld) 9.9 % 0-10 [facility] Blood platelet mean volumeOr dered By: Melissa Reed on 06-20-2023 Platelet mean volume (Bld) [Entitic vol] 9.9 fL 6.2-12.0 [facility] Determination of erythrocyte mean corpuscular volume (MCV)Ordered By: Melissa Reed on 06-20-2023 MCV (RBC) [Entitic vol] 93.2 fL 81-99 [facility] Hematocrit Auto (Bld) [Volum e fraction]Ordered By: Melissa Reed on 06-20-2023 Hematocrit (Bld) [Volume fraction] 37.0 % 37-47 [facility] Laboratory - Chemistry and C hemistry - challengeOrdered By: Melissa Reed on 06-20-2023 CO2 [Moles/Vol] 30.0 mmol/L 21.0-32.0 [facility] Cobalamin (Vitamin B12) [Mass/Vol] 430 pg/mL 211-911 [facility] Magnesium [Mass/Vol] 2.0 mg/dL 1.6-2.6 [facility] Urea nitrogen/Creatinine [Mass ratio] 19.8 mg/mg 10-20 [facility] Laboratory - Hematology and Cell countsOrdered By: Melissabridgette Reed on 06-20-2023 Erythrocyte distribution width (RBC) [Entitic vol] 48.2 fL 35.1-43.9 [facility] Erythrocyte distribution width (RBC) [Ratio] 14.2 % 11.6-14.6 [facility] Immature granulocytes/100 WBC (Bld) 0.200 % 0.0-0.9 [facility] Comment on above: IG% - Immature Granu locytes (promyelocytes, myelocytes and metamyelocytes) > 1% indicates that a LEFT SHIFT is Present. MCH (RBC) [Entitic mass] 27.7 pg 27.0-32.0 [facility] Nucleated RBC/100 WBC (Bld) [Ratio] 0 % 0-5 [facility] MCHC Auto (RBC) [Mass/Vol]Or dered By: Melissa Reed on 06-20-2023 MCHC (RBC) [Mass/Vol] 29.7 g/dL 32-36 [facility] No Panel InformationOrdered By: Melissa Reed on 06-20-2023 Estimated GFR (MDRD) Amer 72 mL/min >60 [facility] Comment on above: GFR Calc Estimated GFR (MDRD) Non-Af Amer 60 mL/min >60 [facility] Comment on above: Non- GFR Calc Thyroid Stimulating Hormone (TSH) 1.57 uIU/mL 0.358-3.74 [facility] Vitamin D 25-Hydroxy 60.6 ng/mL [facility] Comment on above: Vitamin D 25(OH) Sta tus Range Deficiency <20 ng/mL (50nmol/L) Insufficiency 20 - 30 ng/mL (50 - 75 nmol/L) Sufficiency 30 - 100 ng/mL (75 - 250 nmol/L) Toxicity >100 ng/mL (>250 nmol/L) Platelets bldOrdered By: Lillian Reed on 06-20-2023 Platelets (Bld) [#/Vol] 317 10*3/uL 150-450 [facility] Serum or plasma calcium danae urement (mass/volume)Ordered By: Melissa Reed on 06-20-2023 Calcium [Mass/Vol] 8.8 mg/dL 8.5-10.1 [facility] Serum or plasma creatinine m easurement (mass/volume)Ordered By: Melissa Reed on 06-20-2023 Creatinine [Mass/Vol] 0.96 mg/dL 0.55-1.02 [facility] Comment on above: The validity of the calculated GFR & GFRAA in patients over 70 years has not been determined. Clinical correlation is essential. Serum or plasma urea nitroge n measurement (mass/volume)Ordered By: Melissa Reed on 06-20-2023 Urea nitrogen [Mass/Vol] 19 mg/dL 7-18 [facility] Thin prep Papanicolaou smear with manual screeningOrdered By: Melissa Reed on 06-20-2023 Thin prep Papanicolaou smear with manual screening 2 5-15 [facility] Whole blood hemoglobin A1c/t otal hemoglobin ratio (mass fraction)Ordered By: Melissa Reed on 06-20-2023 HbA1c (Bld) [Mass fraction] 6.4 % 3.8-5.6 [facility] Comment on above: Normal < 5.7 % Predi abetic 5.7 - 6.4 % Diabetic >or= 6.5 % Please note range changes. Progress Noteon 06-07-2023 Progress Note CM called and spoke with a staff member at [facility]. The patient is still at the facility. CM will follow-up with the patient once she is discharged to home. Normal [facility] Culture, urineOrdered By: Anastasia Olvera on 05-10-2023 Bacteria identified Cx Nom (U) Klebsiella pneumoniae sp pneum [facility] Bacteria identified Cx Nom (U) Klebsiella pneumoniae sp pneum [facility] No Panel InformationOrdered By: Lambert Olvera on 05-01-2023 Thyroid Stimulating Hormone (TSH) 1.91 uIU/mL 0.358-3.74 [facility] Progress Noteon 04-06-2023 Progress Note EMR REVIEWED. THE PT . HAD A HOSPITAL ADMISSION FROM 02/28/23 TO 03/03/23: HOSPITAL COURSE: 77 year old presented with low back pain, weakness, dysuria, polyuria and hyperglycemia. She was admitted, given IVF, IV antibiotics, was seen by Endocrinology and Geriatrics and had PT/OT evaluations. She was also seen by wound care. Urine culture grew e coli. She improved with adjustment of insulin, close blood glucose monitoring and therapy. She completed an antibiotic course. She was thought to need SNF. Arrangements were made and she was discharged. RECOMMENDED NEXT STEPS: Transferred to [facility]. Continue close monitoring of BG. Avoid nephrotoxins/NSAIDS/bela inh. Levothroid dose decreased. Apresoline started. PMH: RLS, HTN, GI-BLEED, CKD3, DM2, HYPOTHYROID, ANXIETY, DEPRESSION, HYPOKALEMIA, HYPERLIPIDEMIA FOLLOW-UP APPTS: 04/27/23-FAMILY MEDICINE HTN MEDS: AMLODIPINE 10MG DAILY HYDRALAZINE 25MG THREE TIMES DAILY ?CHECKING BP'S DM MEDS: LANTUS INSULIN 19 UNITS DAILY HUMALOG INSULIN 10 UNITS WITH MEALS [id number] ON 03/01/23 ?MONITORING BLOOD SUGARS CM CALLED AND SPOKE WITH THE PT'S SON-MAXIMINO. HE STATED THE PT. IS CURRENTLY ADMITTED TO [facility]. HE STATED THE PT. WILL PROBABLY BE GOING TO AN [facility]ED [facility]IV[facility] FACILITY WHEN SHE IS DISCHARGED DUE TO THE PT. NOT BEING ABLE TO CARE FOR HERSELF ALONE AT HOME. CM WILL FOLLOW-UP WITH THE PT. ONCE SHE IS DISCHARGED FROM SNF. Normal [facility] Basophil percentageOrdered B y: Lambert Olvera on 10-17-2023 Bilirubin [Mass/Vol] 0.30 mg/dL 0.20-1.00 [facility] Comment on above: For patients on eltr ombopag therapy, use of [facility] [place] TBIL is not recommended. Chloride [Moles/Vol] 109 mmol/L 98-107 [facility] Glucose [Mass/Vol] 112 mg/dL 74-106 [facility] Comment on above: Fasting Glucose resu lt from 100 to 125 mg/dL suggests IMPAIRED HOMEOSTASIS per A.D.A. criteria. Potassium [Moles/Vol] 4.2 mmol/L 3.5-5.1 [facility] Protein [Mass/Vol] 6.5 g/dL 6.4-8.2 [facility] Sodium [Moles/Vol] 140 mmol/L 136-145 [facility] WBC (Bld) [#/Vol] 8.5 10*3/uL 4.4-11.0 [facility] Blood erythrocytes count (nu mber/volume)Ordered By: Lambert Olvera on 04-04-2023 RBC (Bld) [#/Vol] 4.34 10*6/uL 4.2-5.4 [facility] Blood hemoglobin measurement (mass/volume)Ordered By: Lambert Olvera on 04-04-2023 Hemoglobin (Bld) [Mass/Vol] 11.9 g/dL 12.0-15.0 [facility] Blood platelet mean volumeOr dered By: Lambert Olevra on 04-04-2023 Platelet mean volume (Bld) [Entitic vol] 10.4 fL 6.2-12.0 [facility] Determination of erythrocyte mean corpuscular volume (MCV)Ordered By: Lambert Olvera on 04-04-2023 MCV (RBC) [Entitic vol] 91.9 fL 81-99 [facility] Hematocrit Auto (Bld) [Volum e fraction]Ordered By: Lambert Olvera on 04-04-2023 Hematocrit (Bld) [Volume fraction] 39.9 % 37-47 [facility] Laboratory - Chemistry and C hemistry - challengeOrdered By: Lambert Olvera on 04-04-2023 ALP [Catalytic activity/Vol] 96 U/L 45-117 [facility] ALT [Catalytic activity/Vol] 28 U/L 13-56 [facility] CO2 [Moles/Vol] 27.0 mmol/L 21.0-32.0 [facility] Globulin (S) [Mass/Vol] 3.7 g/dL 2.2-4.2 [facility] Urea nitrogen/Creatinine [Mass ratio] 21.8 mg/mg 10-20 [facility] Laboratory - Hematology and Cell countsOrdered By: Lambert Olvera on 04-04-2023 Erythrocyte distribution width (RBC) [Entitic vol] 47.0 fL 35.1-43.9 [facility] Erythrocyte distribution width (RBC) [Ratio] 13.9 % 11.6-14.6 [facility] MCH (RBC) [Entitic mass] 27.4 pg 27.0-32.0 [facility] MCHC Auto (RBC) [Mass/Vol]Or dered By: Lambert Olvera on 04-04-2023 MCHC (RBC) [Mass/Vol] 29.8 g/dL 32-36 [facility] No Panel InformationOrdered By: Lambert Olvera on 04-04-2023 Estimated GFR (MDRD) Amer 76 mL/min >60 [facility] Comment on above: GFR Calc Estimated GFR (MDRD) Non-Af Amer 63 mL/min >60 [facility] Comment on above: Non- GFR Calc Platelets bldOrdered By: Lisa Olvera on 04-04-2023 Platelets (Bld) [#/Vol] 315 10*3/uL 150-450 [facility] Serum or plasma albumin danae urement (mass/volume)Ordered By: Lambert Olvera on 04-04-2023 Albumin [Mass/Vol] 2.8 g/dL 3.2-5.0 [facility] Serum or plasma albumin/glob ulin mass ratioOrdered By: Lambert Olvera on 04-04-2023 Albumin/Globulin [Mass ratio] 0.8 {ratio} 0.9-2.4 [facility] Serum or plasma calcium danae urement (mass/volume)Ordered By: Lambert Olvera on 04-04-2023 Calcium [Mass/Vol] 8.6 mg/dL 8.5-10.1 [facility] Serum or plasma creatinine m easurement (mass/volume)Ordered By: Lambert Olvera on 04-04-2023 Creatinine [Mass/Vol] 0.92 mg/dL 0.55-1.02 [facility] Comment on above: The validity of the calculated GFR & GFRAA in patients over 70 years has not been determined. Clinical correlation is essential. Serum or plasma urea nitroge n measurement (mass/volume)Ordered By: Lambert Olvera on 04-04-2023 Urea nitrogen [Mass/Vol] 20 mg/dL 7-18 [facility] Thin prep Papanicolaou smear with manual screeningOrdered By: Lambert Olvera on 04-04-2023 Thin prep Papanicolaou smear with manual screening 20 U/L 15-37 [facility] Thin prep Papanicolaou smear with manual screening 4 5-15 [facility] Progress Noteon 03-31-2023 Progress Note THE PT. WAS IDENTIFI ED BY [facility] RN FROM THE [facility] DAILY CENSUS REPORT. CM WILL CONTINUE TO FOLLOW-UP WITH THE PT. FOR ANY ONGOING CM NEEDS. Normal [facility] Basophil percentageOrdered B y: Lambert Olvera on 03-20-2023 Chloride [Moles/Vol] 105 mmol/L 98-107 [facility] Glucose [Mass/Vol] 103 mg/dL 74-106 [facility] Comment on above: Fasting Glucose resu lt from 100 to 125 mg/dL suggests IMPAIRED HOMEOSTASIS per A.D.A. criteria. Potassium [Moles/Vol] 3.7 mmol/L 3.5-5.1 [facility] Sodium [Moles/Vol] 138 mmol/L 136-145 [facility] WBC (Bld) [#/Vol] 8.0 10*3/uL 4.4-11.0 [facility] Blood erythrocytes count (nu mber/volume)Ordered By: Lambert Olvera on 03-20-2023 RBC (Bld) [#/Vol] 3.75 10*6/uL 4.2-5.4 [facility] Blood hemoglobin measurement (mass/volume)Ordered By: Lambert Olvera on 03-20-2023 Hemoglobin (Bld) [Mass/Vol] 10.3 g/dL 12.0-15.0 [facility] Blood platelet mean volumeOr dered By: Lambert Olvera on 03-20-2023 Platelet mean volume (Bld) [Entitic vol] 10.5 fL 6.2-12.0 [facility] Determination of erythrocyte mean corpuscular volume (MCV)Ordered By: Lambert Olvera on 03-20-2023 MCV (RBC) [Entitic vol] 91.7 fL 81-99 [facility] Hematocrit Auto (Bld) [Volum e fraction]Ordered By: Lambert Olvera on 03-20-2023 Hematocrit (Bld) [Volume fraction] 34.4 % 37-47 [facility] Laboratory - Chemistry and C hemistry - challengeOrdered By: Lambert Olvera on 03-20-2023 CO2 [Moles/Vol] 30.0 mmol/L 21.0-32.0 [facility] Urea nitrogen/Creatinine [Mass ratio] 24.2 mg/mg 10-20 [facility] Laboratory - Hematology and Cell countsOrdered By: Lambert Olvera on 03-20-2023 Erythrocyte distribution width (RBC) [Entitic vol] 45.7 fL 35.1-43.9 [facility] Erythrocyte distribution width (RBC) [Ratio] 13.4 % 11.6-14.6 [facility] MCH (RBC) [Entitic mass] 27.5 pg 27.0-32.0 [facility] MCHC Auto (RBC) [Mass/Vol]Or dered By: Lambert Olvera on 03-20-2023 MCHC (RBC) [Mass/Vol] 29.9 g/dL 32-36 [facility] No Panel InformationOrdered By: Lambert Olvera on 03-20-2023 Estimated GFR (MDRD) Amer 70 mL/min >60 [facility] Comment on above: GFR Calc Estimated GFR (MDRD) Non-Af Amer 57 mL/min >60 [facility] Comment on above: Non- GFR Calc Thyroid Stimulating Hormone (TSH) 0.04 uIU/mL 0.358-3.74 [facility] Platelets bldOrdered By: Lisa Olvera on 03-20-2023 Platelets (Bld) [#/Vol] 333 10*3/uL 150-450 [facility] Serum or plasma calcium danae urement (mass/volume)Ordered By: Lambert Olvera on 03-20-2023 Calcium [Mass/Vol] 8.4 mg/dL 8.5-10.1 [facility] Serum or plasma creatinine m easurement (mass/volume)Ordered By: Lambert Olvera on 03-20-2023 Creatinine [Mass/Vol] 0.99 mg/dL 0.55-1.02 [facility] Comment on above: The validity of the calculated GFR & GFRAA in patients over 70 years has not been determined. Clinical correlation is essential. Serum or plasma urea nitroge n measurement (mass/volume)Ordered By: Lambert Olvera on 03-20-2023 Urea nitrogen [Mass/Vol] 24 mg/dL 7-18 [facility] Thin prep Papanicolaou smear with manual screeningOrdered By: Lambert Olvera on 03-20-2023 Thin prep Papanicolaou smear with manual screening 3 5-15 [facility] Absolute lymphocyte countOrd ered By: Baljit Jaffe on 03-18-2023 Lymphocytes Auto (Unsp spec) [#/Vol] 1.42 10*3/uL 0.83-4.51 [facility] Basophil percentageOrdered B y: Baljit Jaffe on 03-18-2023 Basophils/100 WBC (Bld) 0.6 % 0-1 [facility] Chloride [Moles/Vol] 106 mmol/L 98-107 [facility] Eosinophils/100 WBC (Bld) 5.2 % 0-5 [facility] Glucose [Mass/Vol] 111 mg/dL 74-106 [facility] Comment on above: Fasting Glucose resu lt from 100 to 125 mg/dL suggests IMPAIRED HOMEOSTASIS per A.D.A. criteria. Neutrophils (Bld) [#/Vol] 5.0 10*3/uL 2.0-7.7 [facility] Neutrophils/100 WBC (Bld) 65.0 % 47-70 [facility] Potassium [Moles/Vol] 3.7 mmol/L 3.5-5.1 [facility] Sodium [Moles/Vol] 138 mmol/L 136-145 [facility] WBC (Bld) [#/Vol] 7.8 10*3/uL 4.4-11.0 [facility] Blood erythrocytes count (nu mber/volume)Ordered By: Baljit Jaffe on 03-18-2023 RBC (Bld) [#/Vol] 3.84 10*6/uL 4.2-5.4 [facility] Blood hemoglobin measurement (mass/volume)Ordered By: Baljit Jaffe on 03-18-2023 Hemoglobin (Bld) [Mass/Vol] 10.8 g/dL 12.0-15.0 [facility] Blood lymphocytes/100 leukoc ytesOrdered By: Baljit Jaffe on 03-18-2023 Lymphocytes/100 WBC (Bld) 18.3 % 19-41 [facility] Blood monocytes/100 leukocyt esOrdered By: Baljit Jaffe on 03-18-2023 Monocytes/100 WBC (Bld) 10.6 % 0-10 [facility] Blood platelet mean volumeOr dered By: Baljit Jaffe on 03-18-2023 Platelet mean volume (Bld) [Entitic vol] 9.9 fL 6.2-12.0 [facility] Determination of erythrocyte mean corpuscular volume (MCV)Ordered By: Baljit Jaffe on 03-18-2023 MCV (RBC) [Entitic vol] 90.6 fL 81-99 [facility] Glucose Glucometer (BldC) [M ass/Vol]Ordered By: Baljit Jaffe on 03-18-2023 Glucose [Mass/Vol] 111 mg/dL 74-106 [facility] Comment on above: MANAGEMENT OF PATIEN T CARE PER NURSING PROTOCOL Hematocrit Auto (Bld) [Volum e fraction]Ordered By: Baljit Jaffe on 03-18-2023 Hematocrit (Bld) [Volume fraction] 34.8 % 37-47 [facility] Laboratory - Chemistry and C hemistry - challengeOrdered By: Baljit Jaffe on 03-18-2023 CO2 [Moles/Vol] 27.0 mmol/L 21.0-32.0 [facility] Urea nitrogen/Creatinine [Mass ratio] 30.8 mg/mg 10-20 [facility] Laboratory - Hematology and Cell countsOrdered By: Baljit Jaffe on 03-18-2023 Erythrocyte distribution width (RBC) [Entitic vol] 44.9 fL 35.1-43.9 [facility] Erythrocyte distribution width (RBC) [Ratio] 13.4 % 11.6-14.6 [facility] Immature granulocytes/100 WBC (Bld) 0.300 % 0.0-0.9 [facility] Comment on above: IG% - Immature Granu locytes (promyelocytes, myelocytes and metamyelocytes) > 1% indicates that a LEFT SHIFT is Present. MCH (RBC) [Entitic mass] 28.1 pg 27.0-32.0 [facility] Nucleated RBC/100 WBC (Bld) [Ratio] 0 % 0-5 [facility] MCHC Auto (RBC) [Mass/Vol]Or dered By: Baljit Jaffe on 03-18-2023 MCHC (RBC) [Mass/Vol] 31.0 g/dL 32-36 [facility] No Panel InformationOrdered By: Baljit Jaffe on 03-18-2023 Estimated Creatinine Clearance Calc 41.46 ml/min [facility] Estimated GFR (MDRD) Amer 64 mL/min >60 [facility] Comment on above: GFR Calc Estimated GFR (MDRD) Non-Af Amer 53 mL/min >60 [facility] Comment on above: Non- GFR Calc Platelets bldOrdered By: Baljit Jaffe on 03-18-2023 Platelets (Bld) [#/Vol] 333 10*3/uL 150-450 [facility] Serum or plasma calcium danae urement (mass/volume)Ordered By: Baljit Jaffe on 03-18-2023 Calcium [Mass/Vol] 8.4 mg/dL 8.5-10.1 [facility] Serum or plasma creatinine m easurement (mass/volume)Ordered By: Baljit Jaffe on 03-18-2023 Creatinine [Mass/Vol] 1.07 mg/dL 0.55-1.02 [facility] Comment on above: The validity of the calculated GFR & GFRAA in patients over 70 years has not been determined. Clinical correlation is essential. Serum or plasma urea nitroge n measurement (mass/volume)Ordered By: Baljit Jaffe on 03-18-2023 Urea nitrogen [Mass/Vol] 33 mg/dL 7-18 [facility] Thin prep Papanicolaou smear with manual screeningOrdered By: Baljit Jaffe on 03-18-2023 Thin prep Papanicolaou smear with manual screening 5 5-15 [facility] COVID-19 virus antigen assay Ordered By: Baljit Jaffe on 03-17-2023 SARS-CoV-2 (COVID-19) Ag IA.rapid Ql (Resp) [facility] SARS-CoV-2 (COVID-19) Ag IA.rapid Ql (Resp) [facility] Gram stain for investigation of transfusion reactionOrdered By: Baljit Jaffe on 03-17-2023 Microscopic observation Gram stain Nom (Unsp spec) [facility] Microscopic observation Gram stain Nom (Unsp spec) [facility] Routine wound cultureOrdered By: Baljit Jaffe on 03-17-2023 Bacteria identified Cx Nom (Wound) No growth aerobically. [facility] Bacteria identified Cx Nom (Wound) No growth aerobically. [facility] 36on 03-15-2023 36 Sent via [facility]. Normal [facility] 36 Name of caller: Ricco noel [facility] Contact phone number: [phone] Relationship to Patient: [facility] Provider: Dr Lopez Practice: [facility] [place] location Chief Complaint/Reason for Call: 03/15/23 Margaret calling to ask the office /provider about her Immunization Records she stated pt received Pneumococcal 23 on 04/10/21 but she is asking if anymore was given to pt if so, she will need those records faxed over to [phone] pls advise Best time of day caller can be reached: AM Patient advised that office/PCP has 24-48 business hours to return their call: Yes [facility] CARECOORDon 03-06-2023 CARECOORD Patient Choice Patient Name: RADHA SANDOVAL Date of : 1945 [facility] Bacteria identified Cx Nom ( U)Ordered By: Kalpesh Dillon on 03-03-2023 Interpretation and review of laboratory results [facility] Discharge med list transmitted to [facility] via NitroPCR per TCC request. [facility] Spoke with pt at bedside regarding POA, pt states she is not interested at this time to complete it and would consider completing at [facility] - did call Rafaela at [facility] to update her as well. 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 Will notify RN and TCC of this in rounds. Notified patient's son via phone of transportation time. SW remains available if any other needs concerns arise. Normal [facility] You are not granted access to view this sensitive note. Normal [facility] Insurance auth obtai shaina for [facility] residential facility, updated Dr Finch notified via [employer]. Normal [facility] CBC W Auto Differential pane l (Bld)on 03-03-2023 Basophils (Bld) [#/Vol] 0.1 10*3/uL 0.0 - 0.2 10*3/uL [facility] Basophils/100 WBC (Bld) 0.6 % 0.0 - 2.0 % [facility] Eosinophils (Bld) [#/Vol] 0.4 10*3/uL 0.0 - 0.5 10*3/uL [facility] Eosinophils/100 WBC (Bld) 4.4 % 1.0 - 6.0 % [facility] Erythrocyte distribution width (RBC) [Ratio] 13.4 % 11.5 - 14.5 % [facility] Hematocrit (Bld) [Volume fraction] 35.5 % 35.0 - 47.0 % [facility] Hemoglobin (Bld) [Mass/Vol] 11.6 g/dL Low 11.7 - 16.0 g/dL [facility] Interpretation and review of laboratory results Abnormal [facility] Lymphocytes (Bld) [#/Vol] 2.0 10*3/uL 1.0 - 4.3 10*3/uL [facility] Lymphocytes/100 WBC (Bld) 22.6 % 20.0 - 40.0 % [facility] MCH (RBC) [Entitic mass] 27.7 pg 26.0 - 34.0 pg [facility] MCHC (RBC) [Mass/Vol] 32.7 % 32.0 - 36.0 % [facility] MCV (RBC) [Entitic vol] 84.8 fL 80.0 - 98.0 fL [facility] Monocytes (Bld) [#/Vol] 1.0 10*3/uL High 0.0 - 0.8 10*3/uL [facility] Monocytes/100 WBC (Bld) 11.6 % High 2.0 - 10.0 % [facility] Neutrophils (Bld) [#/Vol] 5.4 10*3/uL 1.8 - 7.0 10*3/uL [facility] Neutrophils/100 WBC (Bld) 60.8 % 40.0 - 80.0 % [facility] Nucleated RBC/100 WBC (Bld) [Ratio] 0.0 % [facility] Platelet mean volume (Bld) [Entitic vol] 7.9 fL 7.4 - 12.4 fL [facility] Platelets (Bld) [#/Vol] 257 10*3/uL 140 - 440 10*3/uL [facility] RBC (Bld) [#/Vol] 4.19 10*6/uL 3.8 - 5.20 10*6/uL [facility] WBC (Bld) [#/Vol] 9.0 10*3/uL 3.6 - 10.7 10*3/uL [facility] CBC WITH AUTO DIFFERENTIALon 03-03-2023 Basophils (Bld) [#/Vol] 0.1 10*3/uL Normal 0.0-0.2 [facility] Comment on above: Performed By: #### L [id number] ####Trimmer Sorter: MARTIN REYES ([id number])[facility] (SBHLAB)[address] Basophils/100 WBC (Bld) 0.6 % Normal 0.0-2.0 [facility] Comment on above: Performed By: #### L [id number] ####Trimmer Sorter: MARTIN REYES ([id number])[facility] (SBHLAB)[address] Eosinophils (Bld) [#/Vol] 0.4 10*3/uL Normal 0.0-0.5 [facility] Comment on above: Performed By: #### L [id number] ####Trimmer Sorter: MARTIN AMBROSEJOSE R ([phone])[facility] [place] (SBHLAB)[address] Eosinophils/100 WBC (Bld) 4.4 % Normal 1.0-6.0 [facility] Comment on above: Performed By: #### L [id number] ####Trimmer Sorter: MARTIN AMBROSEJOSE R ([phone])[facility] [place] (SBHLAB)[address] Erythrocyte distribution width (RBC) [Ratio] 13.4 % Normal 11.5-14.5 [facility] Comment on above: Performed By: #### L [id number] ####Trimmer Sorter: MARTIN HUAWILFREDO ([phone])[facility] (SBAB)[address] ERYTHROCYTE MEAN CORPUSCULAR HEMOGLOBIN CONCENTRATION (G/DL) BY AUTOMATED 32.7 % Normal 32.0-36.0 [facility] Comment on above: Performed By: #### L [id number] ####Trimmer Sorter: MARTIN AMBROSEJOSE R ([phone])[facility] [place] (SBHLAB)[address] Hematocrit (Bld) [Volume fraction] 35.5 % Normal 35.0-47.0 [facility] Comment on above: Performed By: #### L [id number] ####Trimmer Sorter: MARTIN AMBROSEJOSE R ([id number])[facility] [place] (SBHLAB)[address] [place] [address] Hemoglobin (Bld) [Mass/Vol] 11.6 g/dL Low 11.7-16.0 [facility] Comment on above: Performed By: #### L [id number] ####Trimmer Sorter: MARTIN AMBROSEJOSE R ([phone])[facility] [place] (SBHLAB)[address] [place] [address] [place] Lymphocytes (Bld) [#/Vol] 2.0 10*3/uL Normal 1.0-4.3 [facility] Comment on above: Performed By: #### L [id number] ####Trimmer Sorter: MARTIN AMBROSEJOSE R ([phone])[facility] [place] (SBHLAB)[address] Lymphocytes/100 WBC (Bld) 22.6 % Normal 20.0-40.0 [facility] Comment on above: Performed By: #### L [id number] ####Trimmer Sorter: MARTIN ERIC ([id number])[facility] [place] (SB[facility])[address] MCH (RBC) [Entitic mass] 27.7 pg Normal 26.0-34.0 [facility] Comment on above: Performed By: #### L [id number] ####Trimmer Sorter: MARTIN AMBROSEJOSE R ([phone])[facility] [place] (SB[facility]AB)[address] MCV (RBC) [Entitic vol] 84.8 fL Normal 80.0-98.0 [facility] Comment on above: Performed By: #### L [id number] ####Trimmer Sorter: MARTIN AMBROSEJOSE R ([id number])[facility] [place] (SB[facility]AB)[address] Monocytes (Bld) [#/Vol] 1.0 10*3/uL High 0.0-0.8 [facility] Comment on above: Performed By: #### L [id number] ####Trimmer Sorter: MARTIN AMBROSEJOSE R ([phone])[facility] [place] (SB[facility])[address] Monocytes/100 WBC (Bld) 11.6 % High 2.0-10.0 [facility] Comment on above: Performed By: #### L [id number] ####Trimmer Sorter: MARTIN REYES ([id number])[facility] [place] (SBHLAB)[address] [place] [address] [place] Neutrophils (Bld) [#/Vol] 5.4 10*3/uL Normal 1.8-7.0 [facility] Comment on above: Performed By: #### L [id number] ####Trimmer Sorter: MARTIN REYES ([id number])[facility] [place] (SB[facility])[address] Neutrophils/100 WBC (Bld) 60.8 % Normal 40.0-80.0 [facility] Comment on above: Performed By: #### L [id number] ####Trimmer Sorter: MARTIN REYES ([id number])[facility] (SBHLAB)[address] NRBC (PER 100 WBCS) BY AUTOMATED COUNT 0.0 /100 WBCs Normal 0.0-2.0 [facility] Comment on above: Performed By: #### L [id number] ####Trimmer Sorter: MARTIN REYES ([id number])[facility] [place] (SB[facility])[address] Platelet mean volume (Bld) [Entitic vol] 7.9 fL Normal 7.4-12.4 [facility] Comment on above: Performed By: #### L [id number] ####Trimmer Sorter: MARTIN REYES ([id number])[facility] (SBHLAB)[address] [place] [address] [place] PLATELETS (10*3/UL) IN BLOOD AUTOMATED COUNT 257 10*3/uL Normal 140-440 [facility] Comment on above: Performed By: #### L [id number] ####Trimmer Sorter: MARTIN REYES ([id number])[facility] [place] (SB[facility]AB)[address] [place] [address] [place] RBC (Bld) [#/Vol] 4.19 10*6/uL Normal 3.8-5.20 [facility] Comment on above: Performed By: #### L [id number] ####Trimmer Sorter: MARTIN REYES ([id number])[facility] [place] ([facility])[address] WBC (Bld) [#/Vol] 9.0 10*3/uL Normal 3.6-10.7 [facility] Comment on above: Performed By: #### L [id number] ####Trimmer Sorter: MARTIN REYES ([id number])[facility] (SBHLAB)[address] COMPREHENSIVE METABOLIC PANE Real 03-03-2023 Albumin [Mass/Vol] 3.2 g/dL Low 3.5-5.0 [facility] Comment on above: Performed By: #### L [id number] ####Trimmer Sorter: MARTIN REYES ([phone])[facility]ITALDiony [facility] (SB[facility]AB)[address] ALP [Catalytic activity/Vol] 94 U/L Normal 38-126 [facility] Comment on above: Performed By: #### L [id number] ####Trimmer Sorter: MARTIN REYES ([id number])[facility]ITAL[facility] (SB[facility])[address] ALT [Catalytic activity/Vol] 12 U/L Normal 0-34 [facility] Comment on above: Performed By: #### L [id number] ####Trimmer Sorter: MARTIN REYES ([id number])[facility]ITAL[facility] (SBHLAB)[address] Anion gap [Moles/Vol] 2 mmol/L Low 3-13 [facility] Comment on above: Performed By: #### L [id number] ####Trimmer Sorter: MARTIN REYES ([phone])[facility] [place] (SBHLAB)[address] AST [Catalytic activity/Vol] 34 U/L Normal 15-46 [facility] Comment on above: Performed By: #### L [id number] ####Trimmer Sorter: MARTIN REYES ([id number])[facility]ITAL[facility] (SBHLAB)[address] Bilirubin [Mass/Vol] 0.3 mg/dL Normal 0.2-1.3 [facility] Comment on above: Performed By: #### L [id number] ####Trimmer Sorter: MARTIN REYES ([id number])[facility] [place] (SBHLAB)[address] Calcium [Mass/Vol] 8.1 mg/dL Low 8.4-10.4 [facility] Comment on above: Performed By: #### L [id number] ####Trimmer Sorter: MARTIN REYES ([id number])[facility] [place] ([facility])[address] Chloride [Moles/Vol] 102 mmol/L Normal 98-107 [facility] Comment on above: Performed By: #### L [id number] ####Trimmer Sorter: MARTIN REYES ([id number])[facility] [place] ([facility])[address] CO2 [Moles/Vol] 30 mmol/L Normal 22-30 [facility] Comment on above: Performed By: #### L [id number] ####Trimmer Sorter: MARTIN REYES ([id number])[facility] [place] (SB[facility])[address] Creatinine [Mass/Vol] 0.82 mg/dL Normal 0.52-1.04 [facility] Comment on above: Performed By: #### L [id number] ####Trimmer Sorter: MARTIN REYES ([id number])[facility] [place] ([facility])[address] GLOMERULAR FILTRATION RATE ML/MIN/1.73 SQ M.PREDICTED 72.9 mL/min/1.73m*2 Normal >60.0 [facility] Comment on above: Result Comment: Calc ulation based on the Chronic Kidney Disease Epidemiology Collaboration (CKD-EPI) equation refit without adjustment for race Performed By: #### L [id number] ####Trimmer Sorter: MARTIN REYES ([id number])[facility]ITALD[facility]y [facility] (SBHLAB)[address] Glucose [Mass/Vol] 125 mg/dL High 70-100 [facility] Comment on above: Performed By: #### L [id number] ####Trimmer Sorter: MARTIN REYES ([id number])[facility]ITAL[facility] (SBHLAB)[address] Potassium [Moles/Vol] 3.7 mmol/L Normal 3.5-5.1 [facility] Comment on above: Performed By: #### L [id number] ####Trimmer Sorter: MARTIN REYES ([phone])[facility]ITALD[facility] (SB[facility])[address] Protein [Mass/Vol] 6.2 g/dL Low 6.3-8.2 [facility] Comment on above: Performed By: #### L [id number] ####Trimmer Sorter: MARTIN REYES ([id number])[facility] (SBHLAB)[address] Sodium [Moles/Vol] 134 mmol/L Low 135-145 [facility] Comment on above: Performed By: #### L [id number] ####Trimmer Sorter: MARTIN REYES ([id number])[facility]ITALD[facility] ([facility])[address] Urea nitrogen [Mass/Vol] 15 mg/dL Normal 7-17 [facility] Comment on above: Performed By: #### L [id number] ####Trimmer Sorter: MARTIN REYES ([id number])[facility] (SBHL[facility])[address] Comprehensive metabolic 1998 panelon 03-03-2023 Albumin [Mass/Vol] 3.2 g/dL Low 3.5 - 5.0 g/dL [facility] ALP [Catalytic activity/Vol] 94 U/L 38 - 126 U/L [facility] ALT [Catalytic activity/Vol] 12 U/L 0 - 34 U/L [facility] Anion gap [Moles/Vol] 2 mmol/L Low 3 - 13 mmol/L [facility] AST [Catalytic activity/Vol] 34 U/L 15 - 46 U/L [facility] Bilirubin [Mass/Vol] 0.3 mg/dL 0.2 - 1 .3 mg/dL [facility] Calcium [Mass/Vol] 8.1 mg/dL Low 8.4 - 10. 4 mg/dL [facility] Chloride [Moles/Vol] 102 mmol/L 98 - 10 7 mmol/L [facility] CO2 [Moles/Vol] 30 mmol/L 22 - 30 mmol/L [facility] Creatinine [Mass/Vol] 0.82 mg/dL 0.52 - 1.04 mg/dL [facility] GFR/1.73 sq M.predicted MDRD (S/P/Bld) [Vol rate/Area] 72.9 mL/min/{1.73_m2} - PINF [facility] Comment on above: Calculation based on the Chronic Kidney Disease Epidemiology Collaboration (CKD-EPI) equation refit without adjustment for race Glucose [Mass/Vol] 125 mg/dL High 70 - 100 mg/dL [facility] Interpretation and review of laboratory results Abnormal [facility] Potassium [Moles/Vol] 3.7 mmol/L 3.5 - 5.1 mmol/L [facility] Protein [Mass/Vol] 6.2 g/dL Low 6.3 - 8.2 g/dL [facility] Sodium [Moles/Vol] 134 mmol/L Low 135 - 145 mmol/L [facility] Urea nitrogen [Mass/Vol] 15 mg/dL 7 - 17 mg/dL [facility] POCT glucose meteron 023 Glucose [Mass/Vol] 215 mg/dL High 70 - 100 mg/dL [facility] Interpretation and review of laboratory results Abnormal [facility] Performed by: [facility], [address] [facility] [address] CLIA ID: [id number] [facility] Glucose [Mass/Vol] 158 mg/dL High 70 - 100 mg/dL [facility] Interpretation and review of laboratory results Abnormal [facility] Performed by: [facility] [address] [facility] [address] CLIA ID: [id number] [facility] Progress Noteon 03-03-2023 Progress Note Discharged via ambulance to [facility] Normal [facility] Progress Note Report called to carolina jose at [facility] at [phone] Normal [facility] Urine cultureOrdered By: Sanford Dillon on 03-03-2023 Bacteria identified Cx Nom (U) >100,000 CFU/mL Escherichia coli Abnormal [facility] 25-hydroxyvitamin D3 [Mass/V ol]on 03-02-2023 Therapy is based on measurement of Total 25-OHD with the following classification levels: Less than 20 ng/mL: Indicative of Vit D deficiency 20-30 ng/mL: Suggests Vit D insufficiency Optimal: Greater than or equal to 30 ng/mL Test performed by [employer] Competitive Immunoassay, measuring Total Vitamin D, not individual fractions. [facility] CARECOORDon 03-02-2023 CAR[place]OORD Received a call from Rafaela at [facility], they are able to accept, pt agreeable. 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 [facility] at this time Normal [facility] CBC W Auto Differential pane l (Bld)Ordered By: Wendy Bruce on 03-02-2023 Basophils (Bld) [#/Vol] 0.1 10*3/uL 0.0 - 0.2 10*3/uL [facility] Basophils/100 WBC (Bld) 0.7 % 0.0 - 2.0 % [facility] Eosinophils (Bld) [#/Vol] 0.4 10*3/uL 0.0 - 0.5 10*3/uL [facility] Eosinophils/100 WBC (Bld) 3.9 % 1.0 - 6.0 % [facility] Erythrocyte distribution width (RBC) [Ratio] 13.7 % 11.5 - 14.5 % [facility] Hematocrit (Bld) [Volume fraction] 36.1 % 35.0 - 47.0 % [facility] Hemoglobin (Bld) [Mass/Vol] 11.9 g/dL 11.7 - 16.0 g/dL [facility] Interpretation and review of laboratory results Abnormal [facility] Lymphocytes (Bld) [#/Vol] 1.9 10*3/uL 1.0 - 4.3 10*3/uL [facility] Lymphocytes/100 WBC (Bld) 20.1 % 20.0 - 40.0 % [facility] MCH (RBC) [Entitic mass] 28.5 pg 26.0 - 34.0 pg [facility] MCHC (RBC) [Mass/Vol] 32.8 % 32.0 - 36.0 % [facility] MCV (RBC) [Entitic vol] 86.8 fL 80.0 - 98.0 fL [facility] Monocytes (Bld) [#/Vol] 1.1 10*3/uL High 0.0 - 0.8 10*3/uL [facility] Monocytes/100 WBC (Bld) 11.4 % High 2.0 - 10.0 % [facility] Neutrophils (Bld) [#/Vol] 6.1 10*3/uL 1.8 - 7.0 10*3/uL [facility] Neutrophils/100 WBC (Bld) 63.9 % 40.0 - 80.0 % [facility] Nucleated RBC/100 WBC (Bld) [Ratio] 0.1 % [facility] Platelet mean volume (Bld) [Entitic vol] 8.4 fL 7.4 - 12.4 fL [facility] Platelets (Bld) [#/Vol] 252 10*3/uL 140 - 440 10*3/uL [facility] RBC (Bld) [#/Vol] 4.16 10*6/uL 3.8 - 5.20 10*6/uL [facility] WBC (Bld) [#/Vol] 9.5 10*3/uL 3.6 - 10.7 10*3/uL [facility] CBC WITH AUTO DIFFERENTIALon 03-02-2023 Basophils (Bld) [#/Vol] 0.1 10*3/uL Normal 0.0-0.2 [facility] Comment on above: Performed By: #### L [id number] ####Trimmer Sorter: MARTIN REYES ([phone])[facility]ITAL[facility] ([facility])[address] [place] [address] Basophils/100 WBC (Bld) 0.7 % Normal 0.0-2.0 S [facility] Comment on above: Performed By: #### L [id number] ####Trimmer Sorter: MARTINDWAINE REYES ([phone])[facility] [place] (SBHLAB)[address] Eosinophils (Bld) [#/Vol] 0.4 10*3/uL Normal 0.0-0.5 [facility] Comment on above: Performed By: #### L [id number] ####Trimmer Sorter: MARTINDWAINE REYES ([id number])[facility] [place] (SBHLAB)[address] Eosinophils/100 WBC (Bld) 3.9 % Normal 1.0-6.0 [facility] Comment on above: Performed By: #### L [id number] ####Trimmer Sorter: MARTINDWAINE REYES ([id number])[facility] [place] (SBHL[facility])[address] [place] [address] Erythrocyte distribution width (RBC) [Ratio] 13.7 % Normal 11.5-14.5 [facility] Comment on above: Performed By: #### L [id number] ####Trimmer Sorter: MARTIN ERIC ([phone])[facility] [place] ([facility])[address] ERYTHROCYTE MEAN CORPUSCULAR HEMOGLOBIN CONCENTRATION (G/DL) BY AUTOMATED 32.8 % Normal 32.0-36.0 [facility] Comment on above: Performed By: #### L [id number] ####Trimmer Sorter: MARTIN ERIC ([id number])[facility] [place] ([facility])[address] Hematocrit (Bld) [Volume fraction] 36.1 % Normal 35.0-47.0 [facility] Comment on above: Performed By: #### L [id number] ####Trimmer Sorter: MARTIN ERIC ([id number])[facility] [place] (SBHLAB)[address] [place] [address] Hemoglobin (Bld) [Mass/Vol] 11.9 g/dL Normal 11.7-16.0 [facility] Comment on above: Performed By: #### L [id number] ####Trimmer Sorter: MARTINDWAINE REYES ([phone])[facility] [place] (SBHLAB)[address] Lymphocytes (Bld) [#/Vol] 1.9 10*3/uL Normal 1.0-4.3 [facility] Comment on above: Performed By: #### L [id number] ####Trimmer Sorter: MARTIN ERIC ([phone])[facility] (SB[facility])[address] Lymphocytes/100 WBC (Bld) 20.1 % Normal 20.0-40.0 [facility] Comment on above: Performed By: #### L [id number] ####Trimmer Sorter: MARTIN REYES ([phone])[facility] (SBHL[facility])[address] [place] [address] MCH (RBC) [Entitic mass] 28.5 pg Normal 26.0-34.0 [facility] Comment on above: Performed By: #### L [id number] ####Trimmer Sorter: MARTIN ERIC ([phone])[facility] (SB[facility]AB)[address] [place] [address] MCV (RBC) [Entitic vol] 86.8 fL Normal 80.0-98.0 [facility] Comment on above: Performed By: #### L [id number] ####Trimmer Sorter: MARTIN AMBROSEJOSE R ([phone])[facility] [place] (SBHLAB)155 [place] [address] [place] Monocytes (Bld) [#/Vol] 1.1 10*3/uL High 0.0-0.8 [facility] Comment on above: Performed By: #### L [id number] ####Trimmer Sorter: MARTIN ERIC ([phone])[facility] [place] (SBHLAB)[address] Monocytes/100 WBC (Bld) 11.4 % High 2.0-10.0 [facility] Comment on above: Performed By: #### L [id number] ####Trimmer Sorter: MARTIN REYES ([phone])[facility] [place] (SBHLAB)[address] Neutrophils (Bld) [#/Vol] 6.1 10*3/uL Normal 1.8-7.0 [facility] Comment on above: Performed By: #### L [id number] ####Trimmer Sorter: MARTIN REYES ([phone])[facility] [place] (SBHLAB)[address] Neutrophils/100 WBC (Bld) 63.9 % Normal 40.0-80.0 [facility] Comment on above: Performed By: #### L [id number] ####Trimmer Sorter: MARTIN REYES ([phone])[facility] [place] (SBHLAB)[address] NRBC (PER 100 WBCS) BY AUTOMATED COUNT 0.1 /100 WBCs Normal 0.0-2.0 [facility] Comment on above: Performed By: #### L [id number] ####Trimmer Sorter: MARTIN REYES ([phone])[facility] [place] (SBHLAB)[address] Platelet mean volume (Bld) [Entitic vol] 8.4 fL Normal 7.4-12.4 [facility] Comment on above: Performed By: #### L [id number] ####Trimmer Sorter: MARTIN REYES ([phone])[facility] [place] (SBHLAB)[address] [place] [address] [place] PLATELETS (10*3/UL) IN BLOOD AUTOMATED COUNT 252 10*3/uL Normal 140-440 [facility] Comment on above: Performed By: #### L [id number] ####Trimmer Sorter: MARTIN REYES ([phone])[facility] [place] (SBHLAB)[address] [place] [address] [place] RBC (Bld) [#/Vol] 4.16 10*6/uL Normal 3.8-5.20 [facility] Comment on above: Performed By: #### L [id number] ####Trimmer Sorter: MARTIN REYES ([phone])[facility] [place] (SBHLAB)[address] WBC (Bld) [#/Vol] 9.5 10*3/uL Normal 3.6-10.7 [facility] Comment on above: Performed By: #### L [id number] ####Trimmer Sorter: MARTIN REYES ([phone])[facility] (SBHLAB)[address] COMPREHENSIVE METABOLIC PANE Real 03-02-2023 Albumin [Mass/Vol] 3.1 g/dL Low 3.5-5.0 [facility] Comment on above: Performed By: #### Eduardo TEAGUE, LAB17, [id number] ####Trimmer Sorter: MARTIN REYES ([phone])[facility] [place] (SBHLAB)[address] ALP [Catalytic activity/Vol] 100 U/L Normal 38-126 [facility] Comment on above: Performed By: #### Eduardo TEAGUE, LAB17, [id number] ####Trimmer Sorter: MARTIN REYES ([phone])[facility]ITALDiony [facility] (SBHLAB)[address] ALT [Catalytic activity/Vol] 13 U/L Normal 0-34 [facility] Comment on above: Performed By: #### Eduardo ABUmberto, LAB17, [id number] ####Trimmer Sorter: MARTIN REYES ([phone])[facility] [place] (SBHLAB)[address] Anion gap [Moles/Vol] 3 mmol/L Normal 3-13 [facility] Comment on above: Performed By: #### L [id number], LAB17, [id number] ####Trimmer Sorter: MARTIN REYES ([phone])[facility] [place] (SBHLAB)[address] AST [Catalytic activity/Vol] 22 U/L Normal 15-46 [facility] Comment on above: Performed By: #### Eduardo TEAGUE LAB17, [id number] ####Trimmer Sorter: MARTIN REYES ([phone])[facility]ITALD[facility] [place] (SBHLAB)[address] Bilirubin [Mass/Vol] 0.4 mg/dL Normal 0.2-1.3 [facility] Comment on above: Performed By: #### Eduardo TEAGUE, LAB17, [id number] ####Trimmer Sorter: MARTIN REYSE ([phone])[facility] (SBHLAB)[address] Calcium [Mass/Vol] 8.4 mg/dL Normal 8.4-10.4 [facility] Comment on above: Performed By: #### Eduardo TEAGUE LAB17, [id number] ####Trimmer Sorter: MARTIN REYES ([phone])[facility] [place] (SBHLAB)[address] Chloride [Moles/Vol] 105 mmol/L Normal 98-107 [facility] Comment on above: Performed By: #### Eduardo TEAGUE, LAB17, [id number] ####Trimmer Sorter: MARTIN REYES ([id number])[facility] (SBHLAB)[address] [place] [address] [place] CO2 [Moles/Vol] 27 mmol/L Normal 22-30 [facility] Comment on above: Performed By: #### Eduardo TEAGUE LAB17, [id number] ####Trimmer Sorter: MARTIN REYES ([phone])[facility] (SBHLAB)[address] [place] [address] [place] Creatinine [Mass/Vol] 0.77 mg/dL Normal 0.52-1.04 [facility] Comment on above: Performed By: #### Eduardo TEAGUE LAB17, [id number] ####Trimmer Sorter: MARTIN REYES ([phone])[facility] (SBHLAB)[address] [place] [address] [place] GLOMERULAR FILTRATION RATE ML/MIN/1.73 SQ M.PREDICTED 78.6 mL/min/1.73m*2 Normal >60.0 [facility] Comment on above: Result Comment: Calc ulation based on the Chronic Kidney Disease Epidemiology Collaboration (CKD-EPI) equation refit without adjustment for race Performed By: #### Eduardo TEAGUE, LAB17, [id number] ####Trimmer Sorter: MARTIN REYES ([phone])[facility] (SBHLAB)[address] Glucose [Mass/Vol] 97 mg/dL Normal 70-100 [facility] Comment on above: Performed By: #### Eduardo TEAGUE, LAB17, [id number] ####Trimmer Sorter: MARTIN REYES ([phone])[facility] (SBHLAB)[address] [place] [address] [place] Potassium [Moles/Vol] 4.1 mmol/L Normal 3.5-5.1 [facility] Comment on above: Performed By: #### Eduardo TEAGUE, LAB17, [id number] ####Trimmer Sorter: MARTIN REYES ([id number])[facility] (SBHLAB)[address] Protein [Mass/Vol] 5.8 g/dL Low 6.3-8.2 [facility] Comment on above: Performed By: #### Eduardo TEAGUE, LAB17, [id number] ####Trimmer Sorter: MARTIN REYES ([phone])[facility] (SBHL[facility])[address] [place] [address] [place] Sodium [Moles/Vol] 135 mmol/L Normal 135-145 [facility] Comment on above: Performed By: #### Eduardo TEAGUE, LAB17, [id number] ####Trimmer Sorter: MARTIN REYES ([phone])[facility] (SBHLAB)[address] [place] [address] [place] Urea nitrogen [Mass/Vol] 15 mg/dL Normal 7-17 [facility] Comment on above: Performed By: #### L AB127, LAB17, [id number] ####Trimmer Sorter: MARTIN REYES ([phone])[facility] YINGElvia (SBAB)[address] [place] [address] Comprehensive metabolic 1998 panelon 03-02-2023 Albumin [Mass/Vol] 3.1 g/dL Low 3.5 - 5.0 g/dL [facility] ALP [Catalytic activity/Vol] 100 U/L 38 - 126 U/L [facility] ALT [Catalytic activity/Vol] 13 U/L 0 - 34 U/L [facility] Anion gap [Moles/Vol] 3 mmol/L 3 - 13 mmol/L [facility] AST [Catalytic activity/Vol] 22 U/L 15 - 46 U/L [facility] Bilirubin [Mass/Vol] 0.4 mg/dL 0.2 - 1 .3 mg/dL [facility] Calcium [Mass/Vol] 8.4 mg/dL 8.4 - 10. 4 mg/dL [facility] Chloride [Moles/Vol] 105 mmol/L 98 - 10 7 mmol/L [facility] CO2 [Moles/Vol] 27 mmol/L 22 - 30 mmol/L [facility] Creatinine [Mass/Vol] 0.77 mg/dL 0.52 - 1.04 mg/dL [facility] GFR/1.73 sq M.predicted MDRD (S/P/Bld) [Vol rate/Area] 78.6 mL/min/{1.73_m2} - PINF [facility] Comment on above: Calculation based on the Chronic Kidney Disease Epidemiology Collaboration (CKD-EPI) equation refit without adjustment for race Glucose [Mass/Vol] 97 mg/dL 70 - 100 mg/dL [facility] Interpretation and review of laboratory results Abnormal [facility] Potassium [Moles/Vol] 4.1 mmol/L 3.5 - 5.1 mmol/L [facility] Protein [Mass/Vol] 5.8 g/dL Low 6.3 - 8.2 g/dL [facility] Sodium [Moles/Vol] 135 mmol/L 135 - 145 mmol/L [facility] Urea nitrogen [Mass/Vol] 15 mg/dL 7 - 17 mg/dL [facility] FREE T4on 03-02-2023 Free T4 [Mass/Vol] 3.28 ng/dL High 0.78-2.19 [facility] Comment on above: Performed By: #### L AB127, LAB17, [id number] ####Trimmer Sorter: MARTIN REYES ([phone])[facility] [place] (SBHLAB)[address] [place] [address] Free T4 [Mass/Vol]on 023 Free T4 Dialysis [Mass/Vol] 3.28 ng/dL High 0.78 - 2.19 ng/dL [facility] No Panel Informationon 03-02 Interpretation and review of laboratory results Abnormal [facility] [place] POCT glucose meteron 023 Glucose [Mass/Vol] 175 mg/dL High 70 - 100 mg/dL [facility] Interpretation and review of laboratory results Abnormal [facility] Performed by: [facility], [address] [place] [id number] CLIA ID: [id number] [facility] Glucose [Mass/Vol] 214 mg/dL High 70 - 100 mg/dL [facility] Interpretation and review of laboratory results Abnormal [facility] Performed by: [facility], [address] [place] [id number] CLIA ID: [id number] [facility] Glucose [Mass/Vol] 141 mg/dL High 70 - 100 mg/dL [facility] Interpretation and review of laboratory results Abnormal [facility] Performed by: [facility], [address] [place] [id number] CLIA ID: [id number] [facility] Progress Noteon 03-02-2023 Progress Note Department of General Studies Program Chair al Medicine Division of Endocrinology, Diabetes, & Metabolism Endocrinology Note Patient Name: Radha Sandoval : 1945 AGE: 77 y.o. Room/Bed: [facility] A Admission Date: 02/28/2023 Visit Date: 03/02/2023 Reason for Endocrine Consult: DM-Uncontrolled Provider/Team Requesting Consult: Dr. 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 Decrease to Levothyroxine 125 mcg daily ICU goal <180 GMF goal <150 POCT BG ACHS Hypoglycemia per protocol Carb controlled diet ANTICIPATED ENDOCRINE HOME GOING RECOMMENDATIONS: Optimized for Discharge from Endocrine standpoint: No Home Going Endocrine Rx Recommendations-- Humalog - Continue current hospital doses Lantus - Continue current hospital doses Levothyroxine 125 mcg daily before breakfast Patient to discharge to SNF [facility] Outpt Follow Up-- PCP SUBJECTIVE/HPI: CHIEF COMPLAINT: Chief Complaint Patient presents with Back Pain Patient presents for lower back pain and burning and pain with urination. WBC: 13.8 Patient alert and oriented sitting up in bed. Patient reports she lives alone and manages insulin independently. Keeps insulin in fridge. Does not miss doses of insulin Checks blood sugars regularly and recently blood sugars have been in 400s. Eats three meals daily: Breakfast 10 am, Lunch 2 pm, Dinner: 8 pm Latest Reference Range & Units 03/02/23 04:00 T4, FREE 0.78 - 2.19 ng/dL 3.28 (H) (H): Data is abnormally high Latest Reference Range & Units 02/28/23 14:12 pH, Urine 5.0 - 8.0 pH 5.0 Clarity, Urine Clear Turbid ! Color, Urine Lt. Yellow Light Yellow WBC Clumps, Urine Negative /HPF Occasional ! Squamous Epithelial, Urine 3 - 5 /HPF 3-5 Bacteria, Urine Negative /HPF Moderate ! RBC, Urine 0 - 2 /HPF 0-2 WBC, Urine 0 - 5 /HPF 11-25 ! Urobilinogen, Urine Normal (0-1) mg/dL Normal Ketones, Urine Negative mg/dL Negative Blood, Urine Negative mg/dL Negative Glucose, Urine Normal (<70) mg/dL >1,000 ! Bilirubin, Urine Negative mg/dL Negative Protein, Urine Negative mg/dL 20 ! Nitrite, Urine Negative Positive ! LEUKOCYTE ESTERASE Negative Sandeep/uL 250 ! !: Data is abnormal Acquired lymphedema Allergic Anxiety Arthritis Asthma Candidiasis of vulva and vagina CKD (chronic kidney disease) Depression Dietary counseling and surveillance Hyperlipidemia Hyperparathyroidism (HCC) Hypertension Hypothyroidism Malaise and fatigue Morbid obesity (HCC) Muscle weakness Nevus, non-neoplastic Pain in limb Pure hypercholesterolemia RLS (restless legs syndrome) Type 2 diabetes mellitus (HCC) Varicella Glucose Date/Time Value Ref Range Status 03/02/2023 11:55 AM 214 (H) 70 - 100 mg/dL Final 03/02/2023 08:18 AM 141 (H) 70 - 100 mg/dL Final 03/01/2023 08:32 PM 194 (H) 70 - 100 mg/dL Final 03/01/2023 05:05 PM 95 70 - 100 mg/dL Final 03/01/2023 11:22 AM 153 (H) 70 - 100 mg/dL Final 03/01/2023 07:35 AM 172 (H) 70 - 100 mg/dL Final Type of DM: 2 Onset of DM: 1st diagnosed in her late 40's Home DM Medication Regimen: Humalog 16 units ACHS DM control (last A1c/glucose data): Lab Results Component Value Date HGBA1C 12.6 (H) 03/01/2023 Diabetes Medications patient has been on overtime: Metformin- since diagnosis. She has been having diarrhea in [id number], smt severe Glimepiride- started in 2015 Trulicity started in November 2017 lantus Humalog Thyroid disorder: Postoperative Hypothyroidism Onset of thyroid disorder: Unknown Home regimen: LT4 150 mcg daily Biotin use: No Patient reports thyroid surgery in her distant past but can not recall why or if they performed total thyroidectomy. Patient has been on LT4 since surgery. She reports taking Levothyroxine nightly with other medications. Patient has been taking LT4 in this way for a number of years Review of Systems Constitutional: Negative for fatigue. Respiratory: Negative for shortness of breath. Cardiovascular: Negative for chest pain. Endocrine: Negative for polydipsia, polyphagia and polyuria. Skin: Positive for wound. All other systems reviewed and are negative. ROS negative except for those mentioned in HPI. OBJECTIVE: Vitals: 03/01/23 0834 03/01/23 0838 03/01/23203003/02/23 0810 BP: (!) 159/54 (!) 151/81 BP Location: Right arm Right arm Patient Position: Lying Sitting Pulse: 78 80 75 78 Resp: 17 18 Temp: 36.6 ?C (97.8 ?F) 37.2 ?C (98.9 ?F) 37.3 ?C (99.2 ?F) TempSrc: Temporal Temporal Temporal SpO2: 93% 93% 95% 93% Physical Exam Vitals and nursing note reviewed. Hattie (more content not included)... Normal [facility] Progress Note Occupational Therapy OCCUPATIONAL THERAPY [facility] & ED's Treatment Note Name/MRN: Radha Sandoval ([id number]) Date of : 1945 Age: 77 y.o. Room/Bed: B1-153/B1-153 A Visit #: 1 out of 7 of visits Discharge Recommendation: SNF Equipment Needed: TBD at next level of care Prior Level of Function ADL Assistance: Independent Ambulation Assistance: Independent Transfer Assistance: Independent Assessment Pt tolerated OT session fair this date. Pt performed UE dressing with Min A, LE dressing with Min A, toileting with Mod-Max A for clothing management and posterior pericare due to pt being soiled, Min A for bed mobility, CGA for transfers and functional mobility to/from bathroom with SPC. Pt is limited by decreased strength, endurance. Pt is not safe to discharge home at this time. Pt will benefit from continued skilled OT in order to address noted deficits. Pt is recommended for SNF for planned discharge. Continue with OT POC. Subjective Pt presents supine in bed, agreeable to OT treatment. Pt soiled of urine, requires bed change. Okay to see per RN. Pressure wound on buttocks, RN presents for assessment. Purewick intact Pain: 0-10 pain scale: 4/10 Location: L shoulder Pt reports chronic pain of L shoulder from previous surgery. Later states no pain in L arm to RN, reports back in back, not formally rated. Medical Precautions: No active isolations Proper PPE donned/doffed in accordance with facility standards. Fall Risk: [place] Fall Risk Score: 60 (High Risk) Precautions/Restriction s: N/A Family/Caregiver Present: none Objective ADLs UE Dressing: Min Assist LE Dressing: Min Assist Toileting: Contact Guard, Max Assist Pt participated in ADLs seated on commode at bathroom level, requires Min A to doff/gown gown due to limited ROM in shoulders. LE dressing with Min A to thread pull up while seated, CGA for standing for balance. Pt participated in toileting with Max A for doffed of pull up due to being significantly soiled, max A for posterior pericare in standing, pt reports toilet seat is not wide enough for her to perform herself. Shoulder ROM assessed this session due to pt report of chronic pain from previous shoulder surgery. Pt magdao's approx 60 degrees shoulder flexion, RUE approx 80 degrees; distally WFL. Bed Mobility Supine to sit: Min Assist Sit to supine: Min Assist Scooting: SBA HOB elevated, pt magdao's supine to sit EOB with Min A for upper trunk, Min A for BLEs for sit to supine, use of bedrail, with pt preference to exit to R side of bed. Transfers/Mobility Sit to stand: Contact Guard Stand to sit: Contact Guard Toilet: Contact Guard Sitting balance: SBA Standing balance: Contact Guard Functional mobility: Contact Guard Pt magdao's functional transfers with SPC with CGA, toilet transfer to std height commode and use of R grab bar with CGA, additional functional mobility to/from bathroom with SPC with CGA, mild instability but no over LOB noted. Device(s) used: cane Plan Continue acute OT per plan of care. Safety/Education Safety Safety Devices in place: All fall risk precautions in place, call light within reach, left in bed, gait belt, patient at risk for falls, and nurse notified Restraints: N/A Education Education Given To: patient Education Provided: OT Role, Plan of Care, ADL Adaptive Strategies, Transfer Training, Energy Conservation, Fall Prevention Education, Discharge Recommendations, and Benefits of Increasing Activity Education Method: Demonstration and Verbal Barriers to Learning: None Education Outcome: Verbalized Understanding and Continued Education Needed AM-PAC AM-PAC Inpatient Daily Activity Raw Score: 16 ADL Inpatient CMS G-Code Modifier: CK Goals Patient Stated Goal: none stated at this time. Encounter Problems Encounter Problems (Active) Dressing Upper Extremities Patient will complete upper body dressing MOD I (Progressing) Start: 03/01/23 Expected End: 03/08/23 Dressings Lower Extremities Patient will dress lower body MOD I (Progressing) Start: 03/01/23 Expected End: 03/08/23 Mobility Patient will demonstrate functional mobility with MOD I and LRD (Progressing) Start: 03/01/23 Expected End: 03/08/23 Toileting Patient will complete toileting tasks at standard toilet with modified independence. (Progressing) Start: 03/01/23 Expected End: 03/08/23 Transfers Patient will complete functional transfer with least restrictive device with modified independence in order to prepare for ambulation. (Progressing) Start: 03/01/23 Expected End: 03/08/23 Therapy Time Individual Co-treatment Time In 1054 Time Out 1120 Minutes 26 Timed Code Treatment Minutes: 26 Minutes (x1 ther act, x1 self care) Margaret Altamirano OT POC supervision transferred to rehab service department Occupational Therapist Normal [facility] Progress Note [facility] Geriatric Medicine Inpatient Consult Service Admission Date: 02/28/2023 Assessment Principal Problem: LING (acute kidney injury) ([facility]/HCC) ([facility]) Active Problems: Declining functional status Weakness Anxiety Polypharmacy DNR (do not resuscitate) Insomnia Plan Declining functional status -Related to physical deconditioning, UTI, advanced age, diabetes type 2 -Continue PT/OT as able while inpatient -Anticipate d/c to SNF for ongoing daily PT/OT, patient agreeable to go to [facility] Fall Weakness -Multiple risk factors including weakness, acute illness, and possible medication side effect -Continue PT/OT as able while inpatient -Vitamin D 17 . Recommend starting high dose replacement 50,000 Q week x 8 weeks; follow up with PCP for follow up levels and need for on-going supplementation. -Check orthostatic vital signs as able -Medications with associated fall risk include: Ambien, hydroxyzine Anxiety -Continue buspar 5 mg BID PRN anxiety -Hydroxyzine discontinued due to high risk anticholingeric side effects of confusion and drowsiness At risk for delirium -Risk factors for this patient include: UTI, weakness, acute illness, and possible medication side effect -Delirium protocol - Continue evidence-based nonpharmacologic interventions for prevention and treatment of delirium: - redirect/reorient/reass ure frequently - avoid restraints and instead utilize sitter as needed for safety - early mobilization as medically appropriate, OOB for meals as able - have patient use glasses and hearing aides - use familiar objects (family photos and items from home) - sleep hygiene, limit nighttime care to promote sleep/wake cycle - hydrate and encourage PO intake when medically appropriate - minimize/camouflage lines and tethers as able - minimize narcotics as long as pain is adequately controlled - avoid benzos and anticholinergic medications -Avoid antipsychotics unless patient is a danger to themselves or others. -Encourage PO intake, time up in chair, family visits, supervised ambulation, and sleep hygiene -If agitated, assess for and consider treating for pain -Continue scheduled melatonin at HS -Monitor for constipation/urinary retention - last BM unknown Follow-up: will follow with you Subjective Chief Complaint: low back pain/dysuria/polyuria/w [facility] Geriatrics consulted for functional decline HPI- The patient is new to me but seen by the Geriatric Inpatient Consult team. 77 y.o. year-old female admitted to acute care from home for lower back pain and burning with urination. Diagnosed with UTI and started on antibiotics. Per chart review, she saw her PCP prior to admission fir dysuria, polyuria, and back pain and was prescribed augmentin. She had worsening symptoms so she came to the emergency room. She lives alone and is independent of ADL's and IADL's. She states she was feeling more weak at home and had increased urinary frequency. Lab review: Sodium: 135, Potassium: 4.1, BUN: 15, Creatinine: 0.77, Vitamin D 17, WBC: 9.5 Interval History: Remains on B1 . No documented events overnight. Patient cooperative with oral medications. Patient resting in bed and easily woken. She is alert to person, place, and time. She states she slept well overnight and ate breakfast this morning. She complains of pain in her lower back. She denies burning with urination but still complains of urinary frequency. She has not had a BM since she has been in the hospital. Denies feeling anxious this morning. Seen by PT. Minimum assist, contact guard. Ambulated 30 ft x2. Recommending residential facility . Review of Systems Constitutional: Negative for chills, fatigue and fever. HENT: Negative for sore throat and trouble swallowing. Respiratory: Negative for chest tightness and shortness of breath. Cardiovascular: Negative for chest pain and leg swelling. Gastrointestinal: Positive for constipation. Negative for abdominal pain and diarrhea. Genitourinary: Positive for frequency. Negative for difficulty urinating and dysuria. Musculoskeletal: Positive for gait problem and myalgias. Neurological: Negative for dizziness and light-headedness. Psychiatric/Behavioral: Negative for dysphoric mood and sleep disturbance. Objective BP (!) 151/81 (BP Location: Right arm, Patient Position: Sitting) Pulse 78 Temp 37.3 ?C (99.2 ?F) (Temporal) Resp 18 SpO2 93% No intake or output data in the 24 hours ending 03/02/23 0931 Wt Readings from Last 3 Encounters: 02/27/23 234 lb (106 kg) 02/15/23 228 lb (103 kg) 02/07/23 242 lb 6.4 oz (110 kg) Current Facility-Administered Medications: acetaminophen (Tylenol) tablet 650 mg, 650 mg, Oral, q6h PRN, 650 mg at 03/01/23 0635 OR acetaminophen (Tylenol) suppository 650 mg, 650 mg, Rectal, q6h PRN, Gabrielle Finch MD albuterol 108 (90 Base) MCG/ACT inhaler 2 puff, 2 pu (more content not included)... Normal [facility] Progress Note Nutrition rescreen completed. Pt referred to RD for uncontrolled DM, and nutrition supplement per Wound Care. Normal [facility] VITAMIN D DEFICIENCY SCREENI NG (VIT D 25)on 03-02-2023 VIT D 25-OH, TOTAL 17 ng/mL Low 30-100 [facility] Comment on above: Result Comment: LISA Mejia COMMENTS: Therapy is based on measurement of Total 25-OHD with the following classification levels: Less than 20 ng/mL: Indicative of Vit D deficiency 20-30 ng/mL: Suggests Vit D insufficiency Optimal: Greater than or equal to 30 ng/mL Test performed by [employer] Competitive Immunoassay, measuring Total Vitamin D, not individual fractions. Performed By: #### L AB127, LAB17, [id number] ####Trimmer Sorter: MARTIN REYES ([id number])[facility] (SBAB)[address] [place] [address] Vitamin D Deficiency Screeni ng (Vit D 25)on 03-02-2023 25-hydroxyvitamin D3 [Mass/Vol] 17 ng/mL Low 30 - 100 ng/mL [facility] [id number] 03-01-2023 [id number] Business Office Associate following case for Discharge Needs. Therapy states SNF, but Patient wants HC instead. Normal [facility] CARECOORDon 03-01-2023 [facility] Care Managment Initi al Assessment Date: 03/01/2023 Patient Name: Radha Sandoval : 1945 Patient Information Source of Information: Patient Cognition/Language: WFL - Within Functional Limits Permission given to speak with patient ambulatory service representative/caregive r as indicated: Yes Confirmation of Payer with patient/family: Yes Payer Name: [employer] [place]: No Confirmation of Primary Care Physician: Confirmed PCP Name: John Seen in last 2 years?: Yes Primary Caregiver: Self If assistance needed, confirmed caregiver ready, willing and able to care for patient at discharge: Yes Confirmed with: per pt, son or neighbor Living Arrangements Current Residence: House Number of Floors 1 (laundry in basement) Number of Entry Steps: 2 Bed/Bath Levels: Facility: Facility Name: Plan to Return: Yes Lives with: Alone Support Systems: Children, Family members, Friends/neighbors Activities of Daily Living Ambulation: Assistance (cane) Bathing/Dressing: Independent Elimination/Continence/ Toileting: Independent Feeding: Independent Who Assists with Activities of Daily Living: Instrumental Activities of Daily Living Prescription Coverage: Yes Pharmacy Used: [facility] [place] Medication Management: Independent Transportation/Shopping : Independent Transportation Mode: Car Needs Assistance with Transportation at Discharge: No (son or neighbor) Meal Preparation: Independent Laundry/Cleaning: Independent Finances/Bill Paying: Independent Communication: Independent Types of Care Services/Equipment Utilized Care Services: Dialysis Type: NA Durable Medical Equipment: Cane, Walker, Shower Seat, Glucometer Patient's Goal/Discharge Plan Patient expects to be discharged to: Home Discharge Planning Actions: Continue to follow Patient's Choice Rights and [employer] and Collaborative Relationships Disclosed as Indicated for Post-Acute Care: NA Interdisciplinary Team Engagement: PT/OT, Home Health Care Social Work Referral for: Additional Information: 77 yo female admitted to for LING. On PO augmentin for UTI, low Na diet, Ucx pending. CT noted diverticulitis and di renal stones. PT OT ordered, geriatrics and endocrine consulted. Met with pt at bedside, introduced self and explained role of tcc. Pt has insurance with RX coverage, active with PCP. Pt lives at home alone, uses a cane at baseline, has a son and neighbor able to assist, not interested in SNF but would be able to HHC. ROXANA liaison following, TCC to assist and follow as needed. Laura Jackson RN Normal [facility] CBC W Auto Differential pane l (Bld)Ordered By: Rosey Viera on 03-01-2023 Basophils (Bld) [#/Vol] 0.1 10*3/uL 0.0 - 0.2 10*3/uL [facility] Basophils/100 WBC (Bld) 0.6 % 0.0 - 2.0 % [facility] Eosinophils (Bld) [#/Vol] 0.2 10*3/uL 0.0 - 0.5 10*3/uL [facility] Eosinophils/100 WBC (Bld) 1.4 % 1.0 - 6.0 % [facility] Erythrocyte distribution width (RBC) [Ratio] 13.6 % 11.5 - 14.5 % [facility] Hematocrit (Bld) [Volume fraction] 34.9 % Low 35.0 - 47.0 % [facility] Hemoglobin (Bld) [Mass/Vol] 11.5 g/dL Low 11.7 - 16.0 g/dL [facility] Interpretation and review of laboratory results Abnormal [facility] Lymphocytes (Bld) [#/Vol] 1.7 10*3/uL 1.0 - 4.3 10*3/uL [facility] Lymphocytes/100 WBC (Bld) 12.6 % Low 20.0 - 40.0 % [facility] MCH (RBC) [Entitic mass] 28.7 pg 26.0 - 34.0 pg [facility] MCHC (RBC) [Mass/Vol] 33.0 % 32.0 - 36.0 % [facility] MCV (RBC) [Entitic vol] 87.1 fL 80.0 - 98.0 fL [facility] Monocytes (Bld) [#/Vol] 1.5 10*3/uL High 0.0 - 0.8 10*3/uL [facility] Monocytes/100 WBC (Bld) 10.8 % High 2.0 - 10.0 % [facility] Neutrophils (Bld) [#/Vol] 10.3 10*3/uL High 1.8 - 7.0 10*3/uL [facility] Neutrophils/100 WBC (Bld) 74.6 % 40.0 - 80.0 % [facility] Nucleated RBC/100 WBC (Bld) [Ratio] 0.0 % [facility] Platelet mean volume (Bld) [Entitic vol] 8.5 fL 7.4 - 12.4 fL [facility] Platelets (Bld) [#/Vol] 271 10*3/uL 140 - 440 10*3/uL [facility] RBC (Bld) [#/Vol] 4.00 10*6/uL 3.8 - 5.20 10*6/uL [facility] WBC (Bld) [#/Vol] 13.8 10*3/uL High 3.6 - 10.7 10*3/uL [facility] CBC WITH AUTO DIFFERENTIALon 03-01-2023 Basophils (Bld) [#/Vol] 0.1 10*3/uL Normal 0.0-0.2 [facility] Comment on above: Performed By: #### L [id number] ####Trimmer Sorter: MARTIN REYES ([id number])[facility] ([facility])[address] Basophils/100 WBC (Bld) 0.6 % Normal 0.0-2.0 [facility] Comment on above: Performed By: #### L [id number] ####Trimmer Sorter: MARTIN REYES ([id number])[facility] (SBHLAB)[address] Eosinophils (Bld) [#/Vol] 0.2 10*3/uL Normal 0.0-0.5 [facility] Comment on above: Performed By: #### L [id number] ####Trimmer Sorter: MARTIN REYES ([phone])[facility] (SBHLAB)[address] [place] [address] [place] Eosinophils/100 WBC (Bld) 1.4 % Normal 1.0-6.0 [facility] Comment on above: Performed By: #### L [id number] ####Trimmer Sorter: MARTIN REYES ([phone])[facility] (SBHLAB)[address] Erythrocyte distribution width (RBC) [Ratio] 13.6 % Normal 11.5-14.5 [facility] Comment on above: Performed By: #### L [id number] ####Trimmer Sorter: MARTIN REYES ([id number])[facility] [place] ([facility])[address] ERYTHROCYTE MEAN CORPUSCULAR HEMOGLOBIN CONCENTRATION (G/DL) BY AUTOMATED 33.0 % Normal 32.0-36.0 [facility] Comment on above: Performed By: #### L [id number] ####Trimmer Sorter: MARTIN REYES ([id number])[facility] [place] (SBHL[facility])[address] [place] [address] Hematocrit (Bld) [Volume fraction] 34.9 % Low 35.0-47.0 [facility] Comment on above: Performed By: #### L [id number] ####Trimmer Sorter: MARTIN REYES ([id number])[facility] [place] (SB[facility])[address] [place] [address] Hemoglobin (Bld) [Mass/Vol] 11.5 g/dL Low 11.7-16.0 [facility] Comment on above: Performed By: #### L [id number] ####Trimmer Sorter: MARTIN RYEES ([phone])[facility] [place] (SBHL[facility])[address] [place] [address] [place] Lymphocytes (Bld) [#/Vol] 1.7 10*3/uL Normal 1.0-4.3 [facility] Comment on above: Performed By: #### L [id number] ####Trimmer Sorter: MARTIN REYES ([phone])[facility] [place] ([facility])[address] Lymphocytes/100 WBC (Bld) 12.6 % Low 20.0-40.0 [facility] Comment on above: Performed By: #### L [id number] ####Trimmer Sorter: MARTIN [id number])[facility] (SBHLAB)[address] MCH (RBC) [Entitic mass] 28.7 pg Normal 26.0-34.0 [facility] Comment on above: Performed By: #### L [id number] ####Trimmer Sorter: MARTIN ERIC ([id number])[facility] [place] ([facility])[address] MCV (RBC) [Entitic vol] 87.1 fL Normal 80.0-98.0 [facility] Comment on above: Performed By: #### L [id number] ####Trimmer Sorter: MARTIN HUANateJOSE R ([id number])[facility]N (SBHLAB)[address] Monocytes (Bld) [#/Vol] 1.5 10*3/uL High 0.0-0.8 [facility] Comment on above: Performed By: #### L [id number] ####Trimmer Sorter: MARTIN HUANateJOSE R ([phone])[facility]ITAL[facility]iony HEN (SBHLAB)[address] Monocytes/100 WBC (Bld) 10.8 % High 2.0-10.0 [facility] Comment on above: Performed By: #### L [id number] ####Trimmer Sorter: MARTIN AMBROSEJOSE R ([phone])[facility] [place] (SBHLAB)[address] [place] [address] [place] Neutrophils (Bld) [#/Vol] 10.3 10*3/uL High 1.8-7.0 [facility] Comment on above: Performed By: #### L [id number] ####Trimmer Sorter: MARTIN AMBROSEJOSE R ([id number])[facility] [place] (SB[facility])[address] Neutrophils/100 WBC (Bld) 74.6 % Normal 40.0-80.0 [facility] Comment on above: Performed By: #### L [id number] ####Trimmer Sorter: MARTIN REYES ([id number])[facility] [place] ([facility])[address] NRBC (PER 100 WBCS) BY AUTOMATED COUNT 0.0 /100 WBCs Normal 0.0-2.0 [facility] Comment on above: Performed By: #### L [id number] ####Trimmer Sorter: MARTIN REYES ([phone])[facility] [place] ([facility])[address] Platelet mean volume (Bld) [Entitic vol] 8.5 fL Normal 7.4-12.4 [facility] Comment on above: Performed By: #### L [id number] ####Trimmer Sorter: MARTIN AMBROSEJOSE R ([id number])[facility] [place] ([facility])[address] PLATELETS (10*3/UL) IN BLOOD AUTOMATED COUNT 271 10*3/uL Normal 140-440 [facility] Comment on above: Performed By: #### L [id number] ####Trimmer Sorter: MARTIN AMBROSEJOSE R ([id number])[facility] [place] (SB[facility])[address] RBC (Bld) [#/Vol] 4.00 10*6/uL Normal 3.8-5.20 [facility] Comment on above: Performed By: #### L [id number] ####Trimmer Sorter: MARTIN REYES ([id number])[facility] [place] (SB[facility])[address] [place] [address] [place] WBC (Bld) [#/Vol] 13.8 10*3/uL High 3.6-10.7 [facility] Comment on above: Performed By: #### L [id number] ####Trimmer Sorter: MARTIN AMBROSEJOSE R ([id number])[facility] [place] (SB[facility])[address] COMPREHENSIVE METABOLIC PANE Real 03-01-2023 Albumin [Mass/Vol] 3.1 g/dL Low 3.5-5.0 [facility] Comment on above: Performed By: #### L [id number] ####Trimmer Sorter: MARTIN REYES ([id number])[facility] [place] (SB[facility])[address] ALP [Catalytic activity/Vol] 102 U/L Normal 38-126 [facility] Comment on above: Performed By: #### L AB17 ####Trimmer Sorter: MARTIN REYES ([id number])[facility] [place] ([facility])[address] ALT [Catalytic activity/Vol] 16 U/L Normal 0-34 [facility] Comment on above: Performed By: #### L AB17 ####Trimmer Sorter: MARTIN REYES ([id number])[facility] (HLAB)[address] Anion gap [Moles/Vol] 9 mmol/L Normal 3-13 [facility] Comment on above: Performed By: #### L [id number] ####Trimmer Sorter: MARTIN REYES ([id number])[facility] ([facility])[address] AST [Catalytic activity/Vol] 24 U/L Normal 15-46 [facility] Comment on above: Performed By: #### L AB17 ####Trimmer Sorter: MARTIN REYES ([id number])[facility] (SBHL[facility])[address] Bilirubin [Mass/Vol] 0.4 mg/dL Normal 0.2-1.3 [facility] Comment on above: Performed By: #### L [id number] ####Trimmer Sorter: MARTIN REYES ([id number])[facility] (HL[facility])[address] Calcium [Mass/Vol] 8.3 mg/dL Low 8.4-10.4 [facility] Comment on above: Performed By: #### L [id number] ####Trimmer Sorter: MARTIN REYES ([id number])[facility]ITALDiony [facility] (SBHLAB)[address] [place] [address] [place] Chloride [Moles/Vol] 102 mmol/L Normal 98-107 [facility] Comment on above: Performed By: #### L [id number] ####Trimmer Sorter: MARTIN REYES ([id number])[facility] (SBHLAB)[address] CO2 [Moles/Vol] 26 mmol/L Normal 22-30 [facility] Comment on above: Performed By: #### L [id number] ####Trimmer Sorter: MARTIN FLEMINGCER ([id number])[facility] (SBHLAB)[address] Creatinine [Mass/Vol] 0.96 mg/dL Normal 0.52-1.04 [facility] Comment on above: Performed By: #### L [id number] ####Trimmer Sorter: MARTIN REYES ([id number])[facility] (SBHLAB)[address] GLOMERULAR FILTRATION RATE ML/MIN/1.73 SQ M.PREDICTED 60.3 mL/min/1.73m*2 Normal >60.0 [facility] Comment on above: Result Comment: Calc ulation based on the Chronic Kidney Disease Epidemiology Collaboration (CKD-EPI) equation refit without adjustment for race Performed By: #### L [id number] ####Trimmer Sorter: MARTIN REYES ([id number])[facility]ITALD[facility] (SB[facility])[address] [place] [address] [place] Glucose [Mass/Vol] 123 mg/dL High 70-100 [facility] Comment on above: Performed By: #### L AB17 ####Trimmer Sorter: MARTIN REYES ([id number])[facility] (SBHLAB)[address] Potassium [Moles/Vol] 4.3 mmol/L Normal 3.5-5.1 [facility] Comment on above: Performed By: #### L AB17 ####Trimmer Sorter: MARTINDWAINE REYES ([id number])[facility] [place] ([facility])[address] Protein [Mass/Vol] 6.0 g/dL Low 6.3-8.2 [facility] Comment on above: Performed By: #### L AB17 ####Trimmer Sorter: MARTIN HUAWILFREDO ([phone])[facility] [place] ([facility])[address] Sodium [Moles/Vol] 137 mmol/L Normal 135-145 [facility] Comment on above: Performed By: #### L AB17 ####Trimmer Sorter: MARTIN ERIC ([id number])[facility] [place] ([facility])[address] Urea nitrogen [Mass/Vol] 17 mg/dL Normal 7-17 [facility] Comment on above: Performed By: #### L AB17 ####Trimmer Sorter: MARTIN REYES ([phone])[facility] [place] ([facility])[address] Comprehensive metabolic 1998 panelon 03-01-2023 Albumin [Mass/Vol] 3.1 g/dL Low 3.5 - 5.0 g/dL [facility] ALP [Catalytic activity/Vol] 102 U/L 38 - 126 U/L [facility] ALT [Catalytic activity/Vol] 16 U/L 0 - 34 U/L [facility] Anion gap [Moles/Vol] 9 mmol/L 3 - 13 mmol/L [facility] AST [Catalytic activity/Vol] 24 U/L 15 - 46 U/L [facility] Bilirubin [Mass/Vol] 0.4 mg/dL 0.2 - 1 .3 mg/dL [facility] Calcium [Mass/Vol] 8.3 mg/dL Low 8.4 - 10. 4 mg/dL [facility] Chloride [Moles/Vol] 102 mmol/L 98 - 10 7 mmol/L [facility] CO2 [Moles/Vol] 26 mmol/L 22 - 30 mmol/L [facility] Creatinine [Mass/Vol] 0.96 mg/dL 0.52 - 1.04 mg/dL [facility] GFR/1.73 sq M.predicted MDRD (S/P/Bld) [Vol rate/Area] 60.3 mL/min/{1.73_m2} - PINF [facility] Comment on above: Calculation based on the Chronic Kidney Disease Epidemiology Collaboration (CKD-EPI) equation refit without adjustment for race Glucose [Mass/Vol] 123 mg/dL High 70 - 100 mg/dL [facility] Interpretation and review of laboratory results Abnormal [facility] Potassium [Moles/Vol] 4.3 mmol/L 3.5 - 5.1 mmol/L [facility] Protein [Mass/Vol] 6.0 g/dL Low 6.3 - 8.2 g/dL [facility] Sodium [Moles/Vol] 137 mmol/L 135 - 145 mmol/L [facility] Urea nitrogen [Mass/Vol] 17 mg/dL 7 - 17 mg/dL [facility] Consulton 03-01-2023 Consult [facility] Wound Care CONSULT Note Radha Sandoval AGE: 77 y.o. GENDER: female : 1945 Subjective: HISTORY of PRESENT ILLNESS HPI Radha Sandoval is a 77 y.o. female who presented to ER from PCP to have kidneys evaluated for low back pain and burning with urination . Wound Check Patient presents for wound check. Patient has a pressure wound which is located on the right buttock . Current symptoms: pain: moderate and drainage: moderate, serosanguinous. Symptoms began 3 months ago. Pain is rated 4/10. With cleansing wound. Interventions to date: dressing changed today after assessment . History of Wound Context: patient has had wound for months, able to move and offload, will suggest a alternate surface and supplements for healing. Incont. Urine makes it worse due to increased moisture. Barby wick in place. + chronic lymphedema wears own compression socks. Lymphedema present for over 2 years. Denies N,V,D, denies pain at this time except wound pain during treatment. NAD. Looking at menu to order lunch. PAST MEDICAL HISTORY Active Ambulatory Problems Diagnosis Date Noted Dependent edema 07/13/2020 Uncontrolled type 2 diabetes mellitus with hyperglycemia (HCC) 01/16/2020 Morbidly obese (HCC) 01/16/2020 Vitamin D deficiency 01/16/2020 Moderate episode of recurrent major depressive disorder (HCC) 06/03/2019 OAB (overactive bladder) 05/06/2021 Localized edema 10/01/2020 Insomnia 04/06/2015 Dyspnea on exertion 09/09/2021 Muscle spasms of both lower extremities 09/09/2021 Chronic renal insufficiency, stage III (moderate) (HCC) 06/03/2019 Restless legs syndrome (RLS) 01/14/2015 Hyperlipidemia with target LDL less than 70 06/03/2019 Lymphedema of both lower extremities 08/05/2021 Hypertension 01/14/2015 Hypothyroidism 01/14/2015 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) 06/30/2022 DDD (degenerative disc disease), lumbar 06/30/2022 Chronic right-sided low back pain with right-sided sciatica 06/30/2022 Urinary frequency 10/04/2022 Chronic left shoulder pain 10/04/2022 Other chronic sinusitis 10/25/2022 Gastrointestinal bleed 12/07/2022 Hypokalemia 12/13/2022 Wound of right buttock 02/07/2023 Acute cystitis with hematuria 02/27/2023 Diarrhea 02/27/2023 Resolved Ambulatory Problems Diagnosis Date Noted Cellulitis of left lower extremity 07/06/2020 Bronchitis 04/12/2021 Rhabdomyolysis 01/20/2019 Wound of gluteal cleft 10/04/2022 Acute lower GI bleeding 12/05/2022 Past Medical History: Diagnosis Date Acquired lymphedema Allergic Anxiety Arthritis Asthma Candidiasis of vulva and vagina CKD (chronic kidney disease) Depression Dietary counseling and surveillance Hyperlipidemia Hyperparathyroidism (HCC) Malaise and fatigue Morbid obesity (HCC) Muscle weakness Nevus, non-neoplastic Pain in limb Pure hypercholesterolemia RLS (restless legs syndrome) Type 2 diabetes mellitus (HCC) Varicella PAST SURGICAL HISTORY Past Surgical History: Procedure Laterality Date APPENDECTOMY CHOLECYSTECTOMY 1980 COLONOSCOPY 06/19/2008 COLONOSCOPY W/ BIOPSIES AND POLYPECTOMY N/A 12/07/2022 Performed by Avery Marshall DO at [facility] ENDOSCOPY EYE SURGERY Bilateral early 90's LUNG REMOVAL, PARTIAL Left ROTATOR CUFF REPAIR Left TONSILLECTOMY FAMILY HISTORY Family History Problem Relation Name Age of Onset Mental illness Mother GHANSHYAM COLEY Depression Mother GHANSHYAM COLEY Heart disease Father LATHA COLEY High Blood Pressure Father LATHA COLEY Asthma Father LATHA COLEY Hypertension Father LATHA COLEY Diabetes Brother CATRACHO COLEY SOCIAL HISTORY Social History Tobacco Use Smoking status: Never Smokeless tobacco: Never Vaping Use Vaping Use: Never used Substance Use Topics Alcohol use: Yes Alcohol/week: 1.0 - 2.0 standard drink of alcohol Types: 1 - 2 Standard drinks or equivalent per week Comment: social; 1 mixed drink every 2 weeks Drug use: Never ALLERGIES Allergies Allergen Reactions Codeine Itching Other Percodan Oxycodone Hives Oxycodone-Aspirin Vancomycin Other reaction(s): U MEDICATIONS No current facility-administered medications on file prior to encounter. Current Outpatient Medications on File Prior to Encounter Medication Sig Dispense Refill albuterol 108 (90 Base) MCG/ACT inhaler Inhale 2 puffs every 6 hours as needed for wheezing. amLODIPine (Norvasc) 10 MG tablet Take 1 tablet (10 mg) by mouth daily. 90 tablet 1 amoxicillin-clavulanate (Augmentin) 875-125 MG tablet Take 1 tablet by mouth 2 times daily for 7 days. 14 tablet 0 baclofen (Lioresal) 10 MG tablet Take 1 tablet (10 mg) by mouth daily. 30 tablet 0 ergocalciferol (Vitamin D-2) 1.25 MG (64813 UT) capsule Take 1 capsule (1.25 mg) by mouth 1 (one) time per week. 90 capsule 1 Glucose Blood (Blood Glucose Test) strip 4 times daily. hydrOX (more content not included)... Normal [facility] Consult [facility] Geriatric Medicine Inpatient Consult Service Admission Date: 02/28/2023 Admission Status: INPATIENT Chief Complaint: I couldn't get around and they directed me to the hospital because I was peeing constantly from that UTI. Reason for Appointment Geriatrics consulted for functional decline Assessment/Plan Principal Problem: LING (acute kidney injury) ([facility]) ([facility]) Active Problems: Declining functional status Weakness Anxiety Polypharmacy DNR (do not resuscitate) Insomnia Declining Functional Status/Weakness Likely multifactorial given her recent UTI, advancing age, Type 2 Diabetes and other underlying comorbidities Physical therapy/Occupational Therapy ordered; evals pending Antibiotic(s) treatment (oral augmentin) per primary team Insomnia --patient is listed as previously taking ambien 5mg po hs; recommended weaning this as outpatient; put this recommendation in the discharge summary recommendations. Patient only takes this 3-4 nights per week at home; hasn't ever tried melatonin; I encouraged her trial melatonin instead of ambien due to risks discussed --insomnia order set initiated -= Per my d/w pharmacist Ramona - she recommended starting melatonin and changing paroxetine to at bedtime dosing due to sedating effects of medication. Anxiety Knows she takes hydroxyzine at home about once a day on average. Never tried buspar. Is open to it. --begin buspar 5mg po bid prn --discontinue hydroxyzine Polypharmacy Recommend f/u with geriatrics as outpatient Recommend patient speak with her PCP (primary care provider) to reduce and discontinue hydroxyzine and ambien entirely given falls, weakness, and confusion risk they pose; patient states she understands and will discuss with PCP (primary care provider) Denies recent falls at home Vit D Deficiency/weakness Last vit D was 28 in Jun 2022; rechecking Vit D Goal vit D level 30-60 Begin vit D 1000 IUs daily Low TSH (thyroid function test) Defer to primary care treatment/management Code Status Discussion DNRCCA - patient wishes to be DNRCCA per our discussion at bedside today; I encouraged her to relay this to her son; I completed paperwork order and gave her a copy and made sure a copy was on her chart. I verbally told nurse Alma at hospital. Dispo Anticipated discharge; patient would be amenable to home with home health if necessary I recommended follow up at our [facility] at [phone]. Call in 2 weeks for memory (re)testing once acute issue(s) resolve - order placed in [facility] for follow-up Other I deferred full MMSE today due to somnolence and acute infection (UTI, hyperglycemia) but patient was A&OX3 and had 3/3 recall, knew 911 and President of [place] is Marya. Low concern for underlying memory loss/dementia process as she's independent in ADLs and IADLs and a good historian. Asked for insulin when they served her breakfast this AM at hospital and she knew she hadn't received AM insulin yet. I spent total encounter time: 75 minutes face to face with the patient and/or family discussing the diagnosis and importance of compliance with the treatment plan as well as documenting on the day of the visit. In addition, that total time includes the following: -Reviewing previous notes, -Reviewing labs, -Obtaining and/or reviewing separately obtained history, -Ordering prescription medications, tests and procedures, -Communicating results to the patient/family/caregive r, -Counseling/educating the patient/family/caregive r, -Documenting clinical information in the patients electronic record, -Coordination of care for the patient, and -Performing a medically appropriate exam and/or evaluation Subjective: HPI 77 y.o. year-old female presented from home for dysuria, polyuria, back pain, weakness. Per H&P from 02/28/23, Reason for Admission: DM2 with hyperglycemia/weakness/ UTI History Obtained From: patient/chart HISTORY OF PRESENT ILLNESS: Radha is a 77 y.o. female with past medical history below who presents with chief complaint listed above. She saw her PCP yesterday for dysuria, polyuria and back pain and was put on augmentin. She had not yet started it, symptoms worsened and she presented to the ED. She is very weak. No radiation of the back pain. She denies chest pain, sob, cough, abdominal pain, nausea, vomiting, diarrhea, constipation, fevers, or chills. Will admit for further evaluation and management. Geriatrics ED screen positive for: lives alone/needs help at home, hospitalized in the last 3 months, falls or trouble walking, takes 5 or more medicines daily, and in worse health than others your age Conversation with caregiver: Per my d/w patient's bedside nurse Alma on 03/01/23 early afternoon: Alma states that patient has been A&OX3 and appropriate and cooperative for her. She had no concerns. Patient slept well overnight. Awo (more content not included)... [facility] Consult This patient is not a new diabetic or new to insulin therapy and therefore does not meet our current criteria for the inpatient diabetes education service. The clinical bedside RN should provide any necessary diabetes education using the Diabetes Survival Skills Booklet available on the unit. Please consider a dietary consult if appropriate and if not already ordered. Contact [facility] pharmacist for assistance if a new glucometer or any associated supplies are needed. Thank you. Elder RN,BSN,[facility] Consult Department of General Studies Program Chair al Medicine Division of Endocrinology, Diabetes, & Metabolism Endocrinology Note Patient Name: Radha Sandoval : 1945 AGE: 77 y.o. Room[facility]Bed: [facility] A Admission Date: 02/28/2023 Visit Date: 03/01/2023 Reason for Endocrine Consult: DM-Uncontrolled Provider/Team Requesting Consult: Dr. Finch PCP: Shiv Lopez MD Outpt Grease Machine Worker: No ASSESSMENT: Type II diabetes with hyperglycemia, with rodent exterminator insulin use Postoperative hypothyroidism PLAN: Humalog 6 units TID with meals Humalog Medium dose sliding scale TID with meals Lantus 19 units daily Check T4 Levothyroxine 150 mcg daily Patient received 48 units in past 24 hours ICU goal <180 GMF goal <150 POCT BG ACHS Hypoglycemia per protocol Carb controlled diet ANTICIPATED ENDOCRINE HOME GOING RECOMMENDATIONS: Optimized for Discharge from Endocrine standpoint: No Home Going Endocrine Rx Recommendations-- Humalog Dose to be determined Lantus Dose to be determined. Levothyroxine Outpt Follow Up-- PCP SUBJECTIVE/HPI: CHIEF COMPLAINT: Chief Complaint Patient presents with Back Pain Patient presents for lower back pain and burning and pain with urination. WBC: 13.8 Patient alert and oriented sitting up in bed. Patient reports she lives alone and manages insulin independently. Keeps insulin in fridge. Does not miss doses of insulin Checks blood sugars regularly and recently blood sugars have been in 400s. Eats three meals daily: Breakfast 10 am, Lunch 2 pm, Dinner: 8 pm Latest Reference Range & Units 02/28/23 14:12 pH, Urine 5.0 - 8.0 pH 5.0 Clarity, Urine Clear Turbid ! Color, Urine Lt. Yellow Light Yellow WBC Clumps, Urine Negative /HPF Occasional ! Squamous Epithelial, Urine 3 - 5 /HPF 3-5 Bacteria, Urine Negative /HPF Moderate ! RBC, Urine 0 - 2 /HPF 0-2 WBC, Urine 0 - 5 /HPF 11-25 ! Urobilinogen, Urine Normal (0-1) mg/dL Normal Ketones, Urine Negative mg/dL Negative Blood, Urine Negative mg/dL Negative Glucose, Urine Normal (<70) mg/dL >1,000 ! Bilirubin, Urine Negative mg/dL Negative Protein, Urine Negative mg/dL 20 ! Nitrite, Urine Negative Positive ! LEUKOCYTE ESTERASE Negative Sandeep/uL 250 ! !: Data is abnormal Acquired lymphedema Allergic Anxiety Arthritis Asthma Candidiasis of vulva and vagina CKD (chronic kidney disease) Depression Dietary counseling and surveillance Hyperlipidemia Hyperparathyroidism (HCC) Hypertension Hypothyroidism Malaise and fatigue Morbid obesity (HCC) Muscle weakness Nevus, non-neoplastic Pain in limb Pure hypercholesterolemia RLS (restless legs syndrome) Type 2 diabetes mellitus (HCC) Varicella Glucose Date/Time Value Ref Range Status 03/01/2023 07:35 AM 172 (H) 70 - 100 mg/dL Final 02/28/2023 08:24 PM 245 (H) 70 - 100 mg/dL Final 02/28/2023 06:08 PM 197 (H) 70 - 100 mg/dL Final 12/07/2022 11:25 AM 179 (H) 70 - 100 mg/dL Final 12/07/2022 06:29 AM 158 (H) 70 - 100 mg/dL Final 12/07/2022 04:51 AM 160 (H) 70 - 100 mg/dL Final Glucose Blood, POC Date/Time Value Ref Range Status 02/27/2023 03:25 PM 494 mg/dL Final Type of DM: 2 Onset of DM: 1st diagnosed in her late 40's Home DM Medication Regimen: Humalog 16 units ACHS DM control (last A1c/glucose data): Lab Results Component Value Date HGBA1C 9.0 (H) 10/04/2022 Diabetes Medications patient has been on overtime: Metformin- since diagnosis. She has been having diarrhea in [id number], smt severe Glimepiride- started in 2015 Trulicity started in November 2017 lantus Humalog Thyroid disorder: Postoperative Hypothyroidism Onset of thyroid disorder: Unknown Home regimen: LT4 150 mcg daily Biotin use: No Patient reports thyroid surgery in her distant past but can not recall why or if they performed total thyroidectomy. Patient has been on LT4 since surgery. She reports taking Levothyroxine nightly with other medications. Patient has been taking LT4 in this way for a number of years Review of Systems Constitutional: Negative for fatigue. Respiratory: Negative for shortness of breath. Cardiovascular: Negative for chest pain. Endocrine: Negative for polydipsia, polyphagia and polyuria. Skin: Positive for wound. All other systems reviewed and are negative. ROS negative except for those mentioned in HPI. OBJECTIVE: Vitals: 02/28/23 1744 02/28/23 1810 02/28/23202403/01/23 0004 BP: 139/89 (!) 144/65 104/64 (!) 136/48 BP Location: Left arm Patient Position: Sitting Pulse: 73 73 78 72 Resp: 16 18 16 Temp: 36.8 ?C (98.3 ?F) 36.4 ?C (97.6 ?F) TempSrc: Temporal Temporal SpO2: 97% 97% 95% 96% Physical Exam Vitals and nursing note reviewed. Constitutional: Appearance: She is ill-appearing. HENT: Head: Normocephalic. Eyes: Conjunctiva/sclera: Conjunctivae normal. Cardiovascular: Rate and Rhythm: Normal rate and regular rhythm. Pulses: Normal pulses. Heart s (more content not included)... Normal [facility] HEMOGLOBIN A1Con 03-01-2023 Glucose [Mass/Vol] 315 mg/dL Normal [facility] Comment on above: Performed By: #### L [id number] ####Trimmer Sorter: MARTIN REYES ([phone])[facility] ([facility])[address] [place] [address] HbA1c (Bld) [Mass fraction] 12.6 % High <5.7 [facility] Comment on above: Result Comment: Norm al less than 5.7% Prediabetes 5.7% to 6.4% Diabetes 6.5% or higher --HgbA1C levels may not be accurate in patients who have renal disease, received recent blood transfusions, are anemic, or who have dyshemoglobinemia. Performed By: #### L [id number] ####Trimmer Sorter: MARTIN REYES ([phone])[facility] ([facility])[address] [place] [address] HbA1c (Bld) [Mass fraction]o n 03-01-2023 Average glucose Estimated from glycated hemoglobin (Bld) [Mass/Vol] 315 mg/dL [facility] Interpretation and review of laboratory results Abnormal [facility] Hemoglobin A1con 03-01-2023 HbA1c (Bld) [Mass fraction] 12.6 % High NINF - 5.7 % [facility] Comment on above: Normal less than 5.7 % Prediabetes 5.7% to 6.4% Diabetes 6.5% or higher --HgbA1C levels may not be accurate in patients who have renal disease, received recent blood transfusions, are anemic, or who have dyshemoglobinemia. POCT glucose meteron 023 Glucose [Mass/Vol] 194 mg/dL High 70 - 100 mg/dL [facility] Interpretation and review of laboratory results Abnormal [facility] Performed by: [facility], [address] [place] [id number] CLIA ID: [id number] [facility] Glucose [Mass/Vol] 95 mg/dL 70 - 100 mg/dL [facility] Interpretation and review of laboratory results Normal [facility] Performed by: [facility], [address] [place] [id number] CLIA ID: [id number] [facility] Glucose [Mass/Vol] 153 mg/dL High 70 - 100 mg/dL [facility] Interpretation and review of laboratory results Abnormal [facility] Performed by: [facility], [address] [place] [id number] CLIA ID: [id number] [facility] Glucose [Mass/Vol] 172 mg/dL High 70 - 100 mg/dL [facility] Interpretation and review of laboratory results Abnormal [facility] Performed by: [facility], [address] [place] [id number] CLIA ID: [id number] [facility] PROCALCITONIN TESTon 023 PROCALCITONIN 0.05 ng/mL Normal 0.00-0.09 [facility] Comment on above: Result Comment: LISA Mejia COMMENTS: PCT <0.50 = Low risk of severe sepsis and/or septic shock. PCT >2.00 = High risk of severe sepsis and/or septic shock. Performed By: #### L [id number] ####Trimmer Sorter: ASHLEY LLANOS ([id number])[facility] ([address] Procalcitonin Teston 023 Procalcitonin [Mass/Vol] 0.05 ng/mL 0.00 - 0.09 ng/mL [facility] Procalcitonin [Mass/Vol]on 03-01-2023 Interpretation and review of laboratory results Normal [facility] PCT <0.50 = Low risk of severe sepsis and/or septic shock. PCT >2.00 = High risk of severe sepsis and/or septic shock. [facility] Progress Noteon 03-01-2023 Progress Note Physical Therapy Facility/Department: [address] Physical Therapy Initial Evaluation NAME: Radha Sandoval : 1945 Date of Service: 03/01/2023 Discharge Recommendations: Prison [facility], Continue to assess pending progress PT Equipment Recommendations Equipment Needed: No Assessment Requires PT Follow-Up: Yes Assessment: Pt is a 77 y.o. female admitted 02/28 with dysuria, polyuria, back pain. Found to have LING. CT abdomen showed diverticulosis. Pt was previously independent with functional mobility with SPC. Pt is currently requiring SBA for bed mobility, CGA to min A for functional transfers and ambulation with SPC. Pt is currently limited by endurance, fatigue and is at an increased risk for falls. Pt will benefit from acute skilled PT to address current deficits. Recommend SNF pending progress due to decreased activity tolerance and pt lives alone. Performance Deficits/Impairments: Decreased functional mobility , Decreased endurance, Decreased balance, Decreased strength Activity Tolerance Comment: Pt limited by endurance, fatigue Decision Making: Medium Complexity History: Pt admitted 02/28 with dysuria, polyuria, back pain. Found to have LING. CT abdomen showed diverticulosis Exam: AM-PAC Clinical Presentation: Pt admitted 02/28 with dysuria, polyuria, back pain. Found to have LING. CT abdomen showed diverticulosis. Pt has significant past medical history as indicated impacting pt's current clinical presentation. Pt is currently SBA to min A for functional mobility. Recommend SNF pending progress. Barriers to Learning: None Barriers to Learning: None Activity Tolerance Activity Tolerance: Patient limited by fatigue, Patient limited by endurance Patient Diagnosis(es): The primary encounter diagnosis was LING (acute kidney injury) (CMS/HCC) ([facility]). Diagnoses of Pyelonephritis, Polypharmacy, Insomnia, unspecified type, and Pressure ulcer of right buttock, stage 3 (HCC) were also pertinent to this visit. has a past medical history of Acquired lymphedema, Allergic, Anxiety, Arthritis, Asthma, Candidiasis of vulva and vagina, CKD (chronic kidney disease), Depression, Dietary counseling and surveillance, Hyperlipidemia, Hyperparathyroidism ([facility]), Hypertension, Hypothyroidism, Malaise and fatigue, Morbid obesity (HCC), Muscle weakness, Nevus, non-neoplastic, Pain in limb, Pure hypercholesterolemia, RLS (restless legs syndrome), Type 2 diabetes mellitus (HCC), and Varicella. has a past surgical history that includes Appendectomy; Cholecystectomy (1979); Colonoscopy (06/19/2008); Lung removal, partial (Left); Rotator cuff repair (Left); Tonsillectomy; Eye surgery (Bilateral, early ); and Colonoscopy w/ biopsies and polypectomy (N/A, 12/07/2022). Restrictions Restrictions/Precaution s Restrictions/Precaution s: General Precautions, Fall Risk Required Braces or Orthoses?: No Vision/Hearing Vision: Within Functional Limits Hearing: Functional/adequate for paticipation in therapy Cognition/Orientation Overall Cognitive Status: WFL Overall Orientation Status: Within Functional Limits Subjective General Chart Reviewed: Yes Patient Assessed for Rehabilitation Services: Yes Additional Pertinent Hx: Pt admitted 02/28 with dysuria, polyuria, back pain. Found to have LING. CT abdomen showed diverticulosis Family / Caregiver Present: No Follows Commands: Within Functional Limits General Comment Comments: Per RN Mirela for therapy Subjective Subjective: Pt pleasant and agreeable to therapy session Patient Stated Goal: Pt did not state Pain Assessment Pain Assessment: No/denies pain Social/Functional History Social/Functional History Lives With: Alone Type of Home: House Home Layout: One level, Laundry in basement Home Access: Stairs to enter without rails Entrance Stairs - Number of Steps: 2 Bathroom Shower/Tub: Tub/Shower unit, Shower chair with back Bathroom Equipment: Grab bars in shower Home Equipment: Cane ADL Assistance: Independent Homemaking Assistance: Independent (was requiring assist for laundry) Ambulation Assistance: Independent With device?: Yes Device: straight cane Transfer Assistance: Independent Active Clothing Sales Assistant: Yes Objective Observation/Palpation Posture: Good Observation: PIV intact, purewick intact Gross Assessment: Yes Strength: Generally decreased, functional (noted with functional mobility) Bed mobility Supine to Sit: Stand by assistance Sit to Supine: Stand by assistance Scooting: Stand by assistance Comment: Pt completes supine<->sit and scooting to EOB at SBA. Increased time to complete with HOB elevated and use of bed rails. Pt denies dizziness with position change. Transfers Sit to Stand: Contact guard assistance, Minimal Assistance Stand to sit: Minimal Assistance, Contact guard assistance Comment: Pt completes x4 transfers throughout session. x2 from EOB, x2 from lucy (more content not included)... Normal [facility] Progress Note Occupational Therapy OCCUPATIONAL THERAPY [facility] & ED's Initial Evaluation Name/MRN: Radha Sandoval ([id number]) Evaluation Date: 03/01/2023 Date of : 1945 Admission Date: 02/28/2023 11:30 AM Age: 77 y.o. Room/Bed: B1-153/B1-153 A Discharge Recommendation: SNF and Continue to assess pending progress Equipment Needed: TBD at next level of care Assessment IMPRESSION: Pt in 02/28 with c/o back pain, pain with urination, and was sent in by her PCP for kidney evaluation. She was previously IND for ADLs, IADLs, and functional transfers / mobility with a cane PRN. She is currently MOD - MIN A for LB ADLs, MIN A - CGA for UB ADLs, and CGA for functional transfers / mobility with a cane. She is limited at this time by back pain, LUE shoulder pain, and increased fatigue this date. She demos diminished activity tolerance at this time. She would benefit from skilled OT services to address the above performance deficits. Recommend planned discharge for SNF pending progress. Performance Deficits /Impairments: Decreased Functional Mobility, Decreased ADL status, Decreased Endurance, Decreased Balance, and Decreased High Level ADLs Prognosis: Good Decision Making: Medium Complexity Subjective Pleasant and cooperative with encouragement. OK to see per RN. PIV and purewick intact and in place. Pain: reports pain in back and LUE shoulder, however does not formally rate. Past Medical History: Past Medical History: Diagnosis Date Acquired lymphedema Allergic Anxiety Arthritis Asthma Candidiasis of vulva and vagina CKD (chronic kidney disease) Depression Dietary counseling and surveillance Hyperlipidemia Hyperparathyroidism (HCC) Hypertension Hypothyroidism Malaise and fatigue Morbid obesity (HCC) Muscle weakness Nevus, non-neoplastic Pain in limb Pure hypercholesterolemia RLS (restless legs syndrome) Type 2 diabetes mellitus (HCC) Varicella Past Surgical History: Past Surgical History: Procedure Laterality Date APPENDECTOMY CHOLECYSTECTOMY 1979 COLONOSCOPY 06/19/2008 COLONOSCOPY W/ BIOPSIES AND POLYPECTOMY N/A 12/07/2022 Performed by Avery Marshall DO at [facility] ENDOSCOPY EYE SURGERY Bilateral early 90's LUNG REMOVAL, PARTIAL Left ROTATOR CUFF REPAIR Left TONSILLECTOMY Admission Diagnosis: Patient Active Problem List Diagnosis Date Noted LING (acute kidney injury) ([facility]/HCC) ([facility]) 02/28/2023 Acute cystitis with hematuria 02/27/2023 Diarrhea 02/27/2023 Wound of right buttock 02/07/2023 Hypokalemia 12/13/2022 Gastrointestinal bleed 12/07/2022 Other chronic sinusitis 10/25/2022 Urinary frequency 10/04/2022 Chronic left shoulder pain 10/04/2022 Diabetes mellitus due to underlying condition with diabetic chronic kidney disease ([facility]) 06/30/2022 DDD (degenerative disc disease), lumbar 06/30/2022 Chronic right-sided low back pain with right-sided sciatica 06/30/2022 Dyspnea on exertion 09/09/2021 Muscle spasms of both lower extremities 09/09/2021 Lymphedema of both lower extremities 08/05/2021 OAB (overactive bladder) 05/06/2021 Localized edema 10/01/2020 Dependent edema 07/13/2020 Uncontrolled type 2 diabetes mellitus with hyperglycemia ([facility]) 01/16/2020 Morbidly obese ([facility]) 01/16/2020 Vitamin D deficiency 01/16/2020 Moderate episode of recurrent major depressive disorder ([facility]) 06/03/2019 Chronic renal insufficiency, stage III (moderate) ([facility]) 06/03/2019 Hyperlipidemia with target LDL less than 70 06/03/2019 Insomnia 04/06/2015 Restless legs syndrome (RLS) 01/14/2015 Hypertension 01/14/2015 Hypothyroidism 01/14/2015 Medical Precautions: No active isolations Proper PPE donned/doffed in accordance with facility standards. Fall Risk: [place] Fall Risk Score: 45 (High Risk) Precautions/Restriction s: N/A Family/Caregiver Present: none Overall Cognitive Status: WFL Overall Orientation Status: Oriented x4 Social/Functional History Patient admitted from home. Lives With: Alone Type of Home: single family home Home Layout: Two Level Home and Bed/Bed Upstairs Home Access: Stairs to Enter without Rails (# of stairs: 2) Bathroom Shower/Tub: Tub/Shower Combo, Shower Chair without Back, and Grab Bars Toilet: Standard Home Equipment: cane Homemaking Responsibilities: Independent Receives Help From: None Active Clothing Sales Assistant: Yes Prior Level of Function ADL Assistance: Independent Ambulation Assistance: Independent Transfer Assistance: Independent Objective ADLs LE Dressing: Mod Assist Pt limited by increased pain this date for completion of ADL tasks. She required increased assist to don di shoes at this time. She demos diminished functional reach and balance this date for participation in ADLs. She demos diminished standing activity tolerance at this time. Based on observed ability, anticipate pt would require MOD A for LB Dressing and bathing, MIN A for toileting, and MIN - CGA for UB Adls. Upper Ext (more content not included)... [facility] 36on 02-28-2023 36 Noted. Patient sana mendenhall notified. See previous TE if needed. [facility] 36 Called and spoke wit h patient. She was alert and oriented, denied any abdominal pain or nausea. She did report that she had a fever of 102 last night. Discussed recent lab results drawn yesterday that resulted this morning of a critical high blood sugar greater than 500, hyponatremia, and decreased kidney functioning. Due to concern for acute kidney injury and possible developing DKA/HHS, patient was advised to go to the emergency room for further evaluation this morning. She states that she will be going to [facility]. [facility] 36 S: Christine from [facility] ab [phone] spoke with [facility] nurse regarding critical lab results B: Glucose A: Blood was drawn yesterday. Glucose was 524, resulting this morning. Verified with repeat analysis. The lab work was ordered by Katia Granados CNP. R: Since office is open, called back line and spoke with Katia Schulz's nurse. Result given. No further instructions to the [facility] nurse. Reason for Disposition Lab or radiology calling with CRITICAL test results Protocols used: PCP Call - No [facility] CARECOORDon 02-28-2023 CARECOORD Next Site of Care Admission Date: 02/28/2023 11:30 AM Patient Name: RADHA SANDOVAL Location: [facility] 1E MED SURG/[facility] [id number] Date of : 1945 - Placement Information - Referral Type:[facility]NF - New Referral ID:[id number] Provider Name:[facility] Address 1:[address] [place] [address] Address 2: City:[place] Selection Factors:Patient/Family Choice State:[place] Normal [facility] CBC W Auto Differential pane l (Bld)Ordered By: Clayton Lozano on 02-28-2023 Basophils (Bld) [#/Vol] 0.1 10*3/uL 0.0 - 0.2 10*3/uL [facility] Basophils/100 WBC (Bld) 0.5 % 0.0 - 2.0 % [facility] Eosinophils (Bld) [#/Vol] 0.1 10*3/uL 0.0 - 0.5 10*3/uL [facility] Eosinophils/100 WBC (Bld) 0.9 % Low 1.0 - 6.0 % [facility] Erythrocyte distribution width (RBC) [Ratio] 13.8 % 11.5 - 14.5 % [facility] Hematocrit (Bld) [Volume fraction] 36.0 % 35.0 - 47.0 % [facility] Hemoglobin (Bld) [Mass/Vol] 11.5 g/dL Low 11.7 - 16.0 g/dL [facility] Interpretation and review of laboratory results Abnormal [facility] Lymphocytes (Bld) [#/Vol] 0.8 10*3/uL Low 1.0 - 4.3 10*3/uL [facility] Lymphocytes/100 WBC (Bld) 6.4 % Low 20.0 - 40.0 % [facility] MCH (RBC) [Entitic mass] 28.0 pg 26.0 - 34.0 pg [facility] MCHC (RBC) [Mass/Vol] 32.0 % 32.0 - 36.0 % [facility] MCV (RBC) [Entitic vol] 87.5 fL 80.0 - 98.0 fL [facility] Monocytes (Bld) [#/Vol] 1.1 10*3/uL High 0.0 - 0.8 10*3/uL [facility] Monocytes/100 WBC (Bld) 9.0 % 2.0 - 10.0 % [facility] Neutrophils (Bld) [#/Vol] 10.2 10*3/uL High 1.8 - 7.0 10*3/uL [facility] Neutrophils/100 WBC (Bld) 83.2 % High 40.0 - 80.0 % [facility] Nucleated RBC/100 WBC (Bld) [Ratio] 0.0 % [facility] Platelet mean volume (Bld) [Entitic vol] 8.6 fL 7.4 - 12.4 fL [facility] Platelets (Bld) [#/Vol] 278 10*3/uL 140 - 440 10*3/uL [facility] RBC (Bld) [#/Vol] 4.11 10*6/uL 3.8 - 5.20 10*6/uL [facility] WBC (Bld) [#/Vol] 12.3 10*3/uL High 3.6 - 10.7 10*3/uL [facility] CBC WITH AUTO DIFFERENTIALon 02-28-2023 Basophils (Bld) [#/Vol] 0.1 10*3/uL Normal 0.0-0.2 [facility] Comment on above: Performed By: #### L [id number] ####Trimmer Sorter: MARTIN REYES ([phone])[facility] (SBHLAB)[address] Basophils/100 WBC (Bld) 0.5 % Normal 0.0-2.0 [facility] Comment on above: Performed By: #### L [id number] ####Trimmer Sorter: MARTIN REYES ([phone])[facility] [place] (SBHLAB)[address] Eosinophils (Bld) [#/Vol] 0.1 10*3/uL Normal 0.0-0.5 [facility] Comment on above: Performed By: #### L [id number] ####Trimmer Sorter: MARTIN REYES ([phone])[facility] [place] (SBHLAB)[address] Eosinophils/100 WBC (Bld) 0.9 % Low 1.0-6.0 [facility] Comment on above: Performed By: #### L [id number] ####Trimmer Sorter: MARTIN REYES ([phone])[facility] [place] (SBHLAB)[address] Erythrocyte distribution width (RBC) [Ratio] 13.8 % Normal 11.5-14.5 [facility] Comment on above: Performed By: #### L [id number] ####Trimmer Sorter: MARTIN REYES ([phone])[facility] [place] (SBHLAB)[address] ERYTHROCYTE MEAN CORPUSCULAR HEMOGLOBIN CONCENTRATION (G/DL) BY AUTOMATED 32.0 % Normal 32.0-36.0 [facility] Comment on above: Performed By: #### L [id number] ####Trimmer Sorter: MARTIN REYES ([phone])[facility] (SBHLAB)[address] Hematocrit (Bld) [Volume fraction] 36.0 % Normal 35.0-47.0 [facility] Comment on above: Performed By: #### L [id number] ####Trimmer Sorter: MARTIN REYES ([phone])[facility] HOSPITALDiony BERRIOSGALLUP INDI[facility] MEDICAL CENTERElvia (SBHLAB)[address] Hemoglobin (Bld) [Mass/Vol] 11.5 g/dL Low 11.7-16.0 [facility] Comment on above: Performed By: #### L [id number] ####Trimmer Sorter: MARTIN REYES ([phone])[facility] HOSPITALDiony [facility]ERRIOSBANNER ([facility])[address] [place] [address] Lymphocytes (Bld) [#/Vol] 0.8 10*3/uL Low 1.0-4.3 [facility] Comment on above: Performed By: #### L [id number] ####Trimmer Sorter: MARTIN REYES ([phone])[facility] HOSPITALDiony BERRIOSGALLUP INDIAN MEDICAL CENTERElvia (SBAB)[address] [place] [address] Lymphocytes/100 WBC (Bld) 6.4 % Low 20.0-40.0 [facility] Comment on above: Performed By: #### L [id number] ####Trimmer Sorter: MARTIN REYES ([phone])[facility] HOSPITALDiony BERRIOSGALLUP INDIAN MEDICAL CENTERElvia (SBHLAB)[address] MCH (RBC) [Entitic mass] 28.0 pg Normal 26.0-34.0 [facility] Comment on above: Performed By: #### L [id number] ####Trimmer Sorter: MARTIN REYES ([phone])[facility] HOSPITALDiony BERRIOSGALLUP INDIAN MEDICAL CENTERElvia (SBHLAB)[address] MCV (RBC) [Entitic vol] 87.5 fL Normal 80.0-98.0 [facility] Comment on above: Performed By: #### L [id number] ####Trimmer Sorter: MARTIN FLEMINGCER ([phone])[facility] (SBHLAB)[address] Monocytes (Bld) [#/Vol] 1.1 10*3/uL High 0.0-0.8 [facility] Comment on above: Performed By: #### L [id number] ####Trimmer Sorter: MARTIN ERIC ([phone])[facility] (SBHLAB)[address] Monocytes/100 WBC (Bld) 9.0 % Normal 2.0-10.0 [facility] Comment on above: Performed By: #### L [id number] ####Trimmer Sorter: MARTIN ERIC ([phone])[facility] [place] (SBHLAB)[address] Neutrophils (Bld) [#/Vol] 10.2 10*3/uL High 1.8-7.0 [facility] Comment on above: Performed By: #### L [id number] ####Trimmer Sorter: MARTIN ERIC ([phone])[facility]A [place] (SBHLAB)[address] Neutrophils/100 WBC (Bld) 83.2 % High 40.0-80.0 [facility] Comment on above: Performed By: #### L [id number] ####Trimmer Sorter: MARTIN AMBROSEJOSE R ([phone])[facility] [place] (SBHLAB)[address] NRBC (PER 100 WBCS) BY AUTOMATED COUNT 0.0 /100 WBCs Normal 0.0-2.0 [facility] Comment on above: Performed By: #### L [id number] ####Trimmer Sorter: MARTIN AMBROSEJOSE R ([phone])[facility] [place] (SBHLAB)[address] Platelet mean volume (Bld) [Entitic vol] 8.6 fL Normal 7.4-12.4 [facility] Comment on above: Performed By: #### L [id number] ####Trimmer Sorter: MARTIN REYES ([phone])[facility]ITALA [place] (SBHLAB)[address] PLATELETS (10*3/UL) IN BLOOD AUTOMATED COUNT 278 10*3/uL Normal 140-440 [facility] Comment on above: Performed By: #### L [id number] ####Trimmer Sorter: MARTIN REYES ([phone])[facility]OS[facility]ITALA BARBGALLUP INDIAN MEDICAL CENTERN (SBHLAB)[address] RBC (Bld) [#/Vol] 4.11 10*6/uL Normal 3.8-5.20 [facility] Comment on above: Performed By: #### L [id number] ####Trimmer Sorter: MARTIN REYES ([phone])[facility] (SB[facility])[address] WBC (Bld) [#/Vol] 12.3 10*3/uL High 3.6-10.7 [facility] Comment on above: Performed By: #### L [id number] ####Trimmer Sorter: MARTIN REYES ([phone])[facility] (SBHLAB)[address] COMPLETE URINALYSISon 2022 BACTERIA (#/HPF) IN URINE Moderate Abnormal Negative [facility] Comment on above: Performed By: #### L [id number] ####Trimmer Sorter: MARTIN REYES ([phone])[facility] BARBGALLUP INDIAN MEDICAL CENTERN (SBHLAB)[address] BILIRUBIN, TOTAL PRESENCE IN URINE Negative Normal Negative [facility] Comment on above: Performed By: #### L [id number] ####Trimmer Sorter: MARTIN REYES ([phone])[facility]ITALA BARBGALLUP INDIAN MEDICAL CENTERN (SBHLAB)[address] Clarity (U) Turbid Abnormal Clear [facility] Comment on above: Performed By: #### L [id number] ####Trimmer Sorter: MARTIN AMBROSEJOSE R ([phone])[facility] (SBHLAB)[address] Color (U) Light Yellow Normal Lt. Yellow [facility] Comment on above: Performed By: #### L [id number] ####Trimmer Sorter: MARTIN AMBROSEJOSE R ([phone])[facility] (SBAB)[address] GLUCOSE (MG/DL) IN URINE >1,000 Abnormal Normal (<70) [facility] Comment on above: Performed By: #### L [id number] ####Trimmer Sorter: MARTIN FLEMINGCER ([phone])[facility] ([facility])[address] GRANULAR CASTS (#/LPF) IN URINE 0-2 Abnormal Negative [facility] Comment on above: Performed By: #### L [id number] ####Trimmer Sorter: MARTIN REYES ([phone])[facility] ([facility])[address] HEMOGLOBIN PRESENCE IN URINE Negative Normal Negative [facility] Comment on above: Performed By: #### L [id number] ####Trimmer Sorter: MARTIN REYES ([phone])[facility] ([facility])[address] HYALINE CASTS (#/LPF) IN URINE SEDIMENT BY MICROSCOPY 3-5 Abnormal Negative [facility] Comment on above: Performed By: #### L [id number] ####Trimmer Sorter: MARTIN AMBROSEJOSE R ([phone])[facility] (HLAB)[address] [place] [address] [place] Ketones Ql (U) Negative Normal Negative [facility] Comment on above: Performed By: #### L [id number] ####Trimmer Sorter: MARTIN REYES ([phone])[facility] (SBAB)[address] LEUKOCYTE ESTERASE PRESENCE IN URINE BY TEST STRIP 250 Sandeep/uL Abnormal Negative [facility] Comment on above: Performed By: #### L [id number] ####Trimmer Sorter: MARTIN REYES ([phone])[facility] ([facility])[address] [place] [address] [place] MUCUS (#/LPF) IN URINE SEDIMENT Few Normal Negative [facility] Comment on above: Performed By: #### L [id number] ####Trimmer Sorter: MARTIN REYES ([phone])[facility] ([facility])[address] NITRITE PRESENCE IN URINE Positive Abnormal Negative [facility] Comment on above: Performed By: #### L [id number] ####Trimmer Sorter: MARTIN REYES ([phone])[facility] ([facility])[address] [place] [address] pH (U) 5.0 [pH] Normal 5.0-8.0 [facility] Comment on above: Performed By: #### L [id number] ####Trimmer Sorter: MARTIN REYES ([phone])[facility] ([facility])[address] [place] [address] Protein (U) [Mass/Vol] 20 mg/dL Abnormal Negative [facility] Comment on above: Performed By: #### L [id number] ####Trimmer Sorter: MARTIN REYES ([phone])[facility] ([facility])[address] [place] [address] [place] RBC (#/HPF) IN URINE SEDIMENT 0-2 Normal 0-2 [facility] Comment on above: Performed By: #### L [id number] ####Trimmer Sorter: MARTIN REYES ([phone])[facility] ([facility])[address] [place] [address] Specific gravity (U) [Rel density] 1.020 Normal 1.005-1.030 [facility] Comment on above: Performed By: #### L [id number] ####Trimmer Sorter: MATRIN REYES ([phone])[facility] (SBHLAB)[address] SQUAMOUS EPITHELIAL CELLS (#/HPF) IN URINE SEDIMENT 3-5 Normal 3-5 [facility] Comment on above: Performed By: #### L [id number] ####Trimmer Sorter: MARTIN REYES ([phone])[facility] [place] (SBHLAB)[address] UROBILINOGEN (MG/DL) IN URINE Normal Normal Normal (0-1) [facility] Comment on above: Performed By: #### L [id number] ####Trimmer Sorter: MARTIN REYES ([phone])[facility] [place] (SB[facility])[address] WBC (LEUKOCYTE) (#/HPF) IN URINE SEDIMENT 11-25 Abnormal 0-5 [facility] Comment on above: Performed By: #### L [id number] ####Trimmer Sorter: MARTIN REYES ([phone])[facility] [place] (SBHLAB)[address] WBC (LEUKOCYTE) CLUMPS (#/HPF) IN URINE SEDIMENT Occasional Abnormal Negative [facility] Comment on above: Performed By: #### L [id number] ####Trimmer Sorter: MARTIN REYES ([phone])[facility] [place] (SBHLAB)[address] [place] [address] [place] YEAST (#/HPF) IN URINE Few Abnormal Negative [facility] Comment on above: Performed By: #### L [id number] ####Trimmer Sorter: MARTIN REYES ([phone])[facility] [place] (SB[facility])[address] COMPREHENSIVE METABOLIC PANE Real 02-28-2023 Albumin [Mass/Vol] 3.7 g/dL Normal 3.5-5.0 [facility] Comment on above: Performed By: #### L AB17 ####Trimmer Sorter: MARTIN REYES ([phone])[facility] [place] (SBHLAB)[address] ALP [Catalytic activity/Vol] 119 U/L Normal 38-126 [facility] Comment on above: Performed By: #### L AB17 ####Trimmer Sorter: MARTIN REYES ([phone])[facility]A BARBBRAINN (SBHLAB)[address] ALT [Catalytic activity/Vol] 18 U/L Normal 0-34 [facility] Comment on above: Performed By: #### L AB17 ####Trimmer Sorter: MARTIN REYES ([phone])[facility] [place] (SBHLAB)[address] Anion gap [Moles/Vol] 8 mmol/L Normal 3-13 [facility] Comment on above: Performed By: #### L AB17 ####Trimmer Sorter: MARTIN REYES ([phone])[facility] ([facility])[address] AST [Catalytic activity/Vol] 24 U/L Normal 15-46 [facility] Comment on above: Performed By: #### L AB17 ####Trimmer Sorter: MARTIN REYES ([phone])[facility] [place] (SB[facility])[address] Bilirubin [Mass/Vol] 0.5 mg/dL Normal 0.2-1.3 [facility] Comment on above: Performed By: #### L AB17 ####Trimmer Sorter: MARTIN REYES ([phone])[facility] [place] (SB[facility])[address] Calcium [Mass/Vol] 8.4 mg/dL Normal 8.4-10.4 [facility] Comment on above: Performed By: #### L AB17 ####Trimmer Sorter: MARTIN REYES ([phone])[facility] [place] (SB[facility])[address] Chloride [Moles/Vol] 96 mmol/L Low 98-107 [facility] Comment on above: Performed By: #### L AB17 ####Trimmer Sorter: MARTIN REYES ([phone])[facility] [place] (SB[facility])[address] CO2 [Moles/Vol] 26 mmol/L Normal 22-30 [facility] Comment on above: Performed By: #### L AB17 ####Trimmer Sorter: MARTIN REYES ([phone])[facility] [place] (SBHLAB)[address] Creatinine [Mass/Vol] 1.22 mg/dL High 0.52-1.04 [facility] Comment on above: Performed By: #### L AB17 ####Trimmer Sorter: MARTIN REYES ([phone])[facility] [place] (SB[facility])[address] GLOMERULAR FILTRATION RATE ML/MIN/1.73 SQ M.PREDICTED 45.2 mL/min/1.73m*2 Low >60.0 [facility] Comment on above: Result Comment: Calc ulation based on the Chronic Kidney Disease Epidemiology Collaboration (CKD-EPI) equation refit without adjustment for race Performed By: #### L AB17 ####Trimmer Sorter: MARTIN REYES ([phone])[facility] [place] (SBHLAB)[address] [place] [address] [place] Glucose [Mass/Vol] 483 mg/dL Critically high 70-100 [facility] Comment on above: Performed By: #### L AB17 ####Trimmer Sorter: MARTIN REYES ([phone])[facility] [place] (SB[facility])[address] [place] [address] [place] Potassium [Moles/Vol] 4.0 mmol/L Normal 3.5-5.1 [facility] Comment on above: Performed By: #### L AB17 ####Trimmer Sorter: MARTIN REYES ([phone])[facility] [place] (SB[facility])[address] [place] [address] [place] Protein [Mass/Vol] 6.6 g/dL Normal 6.3-8.2 [facility] Comment on above: Performed By: #### L AB17 ####Trimmer Sorter: MARTIN REYES ([phone])[facility] HOSPITALDiony [place] (SBHLAB)[address] Sodium [Moles/Vol] 130 mmol/L Low 135-145 [facility] Comment on above: Performed By: #### L AB17 ####Trimmer Sorter: MARTIN REYES ([phone])[facility] (SBHLAB)[address] Urea nitrogen [Mass/Vol] 20 mg/dL High 7-17 [facility] Comment on above: Performed By: #### L AB17 ####Trimmer Sorter: MARTIN REYES ([phone])[facility] ([facility])[address] [place] [address] CT ABDOMEN PELVIS WO IV CONT [facility] 02-28-2023 CT ABDOMEN PELVIS WO IV CONTRAST Patient Name: RADHA SANDOVAL : 1945 [id number] Exam Date/Time: 02/28/2023 13:07 Procedure: CT ABDOMEN PELVIS WO IV CONTRAST Ordering Provider: WHALEY BETHANY Reason For Exam: FLANK PAIN CT SCAN OF THE ABDOMEN AND PELVIS WITHOUT CONTRAST: INDICATION: Flank pain and dysuria COMPARISON: None. CT scans of the abdomen and pelvis were performed without oral and intravenous contrast administration, with images from the lung bases through the pubic symphysis. The images are reviewed in the axial, sagittal and coronal planes. Dose reduction was employed with automated exposure control. The lung bases are clear. The cardiac silhouette is satisfactory. The liver is normal in size, shape and attenuation. There are no focal liver masses. The gallbladder is surgically absent. No intra or extrahepatic biliary ductal dilatation is appreciated. The pancreas is unremarkable. The spleen is unremarkable. Evaluation of the upper GI tract demonstrates the stomach to be unremarkable. The duodenum is satisfactory in appearance. The small bowel is unremarkable. There is no mucosal thickening. No zone of transition is appreciated. There is no free fluid nor free air. There is a small fat-containing umbilical hernia. Evaluation of the colon demonstrate no evidence of obstruction or mass lesion. Scattered diverticuli are present without evidence of acute diverticulitis There is no mucosal thickening of the colon. The appendix is not clearly visualized. The adrenal glands are normal. Bilateral renal cysts are present. The largest cyst involves the midportion of the left kidney, is exophytic and measures up to 4.8 cm. Scans through the pelvis demonstrates extensive rectosigmoid diverticulosis without acute diverticulitis. There is mild mesenteric stranding adjacent to the proximal and mid sigmoid colon which may relate to changes associated with prior episodes of diverticulitis. The bladder is unremarkable. The remainder of the pelvic contents are unremarkable. There is no mass or adenopathy. There is no free fluid. Arthritic changes of the spine are present with multilevel disc space narrowing and vacuum disc as well as endplate sclerosis and marginal spurring. The retroperitoneum is satisfactory in appearance without evidence of adenopathy. Atherosclerotic changes of the aorta and iliac arteries are noted. IMPRESSION: Colonic diverticulosis without evidence of acute diverticulitis. Bilateral renal cysts, the largest cyst is on the left measuring up to 4.8 cm. Report Dictated on Electronically Signed By: Jb Ahmadi DO Electronically Signed Date/Time: 02/28/2023 1:44 PM EDT Flank pain Pt c/o lower back pain and burning with urination Normal [facility] CT Abdomen WO contraston Colonic diverticulosis without evidence of acute diverticulitis. Bilateral renal cysts, the largest cyst is on the left measuring up to 4.8 cm. Report Dictated on Electronically Signed By: Jb Ahmadi DO Electronically Signed Date/Time: 02/28/2023 1:44 PM EDT [facility] Patient Name: RADHA SANDOVAL : 1945 [facility]#: [id number] Exam Date/Time: 02/28/2023 13:07 Procedure: CT ABDOMEN PELVIS WO IV CONTRAST Ordering Provider: WHALEY BETHANY Reason For Exam: FLANK PAIN CT SCAN OF THE ABDOMEN AND PELVIS WITHOUT CONTRAST: INDICATION: Flank pain and dysuria COMPARISON: None. CT scans of the abdomen and pelvis were performed without oral and intravenous contrast administration, with images from the lung bases through the pubic symphysis. The images are reviewed in the axial, sagittal and coronal planes. Dose reduction was employed with automated exposure control. The lung bases are clear. The cardiac silhouette is satisfactory. The liver is normal in size, shape and attenuation. There are no focal liver masses. The gallbladder is surgically absent. No intra or extrahepatic biliary ductal dilatation is appreciated. The pancreas is unremarkable. The spleen is unremarkable. Evaluation of the upper GI tract demonstrates the stomach to be unremarkable. The duodenum is satisfactory in appearance. The small bowel is unremarkable. There is no mucosal thickening. No zone of transition is appreciated. There is no free fluid nor free air. There is a small fat-containing umbilical hernia. Evaluation of the colon demonstrate no evidence of obstruction or mass lesion. Scattered diverticuli are present without evidence of acute diverticulitis There is no mucosal thickening of the colon. The appendix is not clearly visualized. The adrenal glands are normal. Bilateral renal cysts are present. The largest cyst involves the midportion of the left kidney, is exophytic and measures up to 4.8 cm. Scans through the pelvis demonstrates extensive rectosigmoid diverticulosis without acute diverticulitis. There is mild mesenteric stranding adjacent to the proximal and mid sigmoid colon which may relate to changes associated with prior episodes of diverticulitis. The bladder is unremarkable. The remainder of the pelvic contents are unremarkable. There is no mass or adenopathy. There is no free fluid. Arthritic changes of the spine are present with multilevel disc space narrowing and vacuum disc as well as endplate sclerosis and marginal spurring. The retroperitoneum is satisfactory in appearance without evidence of adenopathy. Atherosclerotic changes of the aorta and iliac arteries are noted. [place] EMERGENCY DEPARTMENT RADIOLOGY SYSTEM Jb Ahmadi DO - 02/28/2023 Patient Name: RADHA SANDOVAL : 1945 [facility]#: [id number] Exam Date/Time: 02/28/2023 13:07 Procedure: CT ABDOMEN PELVIS WO IV CONTRAST Ordering Provider: WHALEY BETHANY Reason For Exam: FLANK PAIN CT SCAN OF THE ABDOMEN AND PELVIS WITHOUT CONTRAST: INDICATION: Flank pain and dysuria COMPARISON: None. CT scans of the abdomen and pelvis were performed without oral and intravenous contrast administration, with images from the lung bases through the pubic symphysis. The images are reviewed in the axial, sagittal and coronal planes. Dose reduction was employed with automated exposure control. The lung bases are clear. The cardiac silhouette is satisfactory. The liver is normal in size, shape and attenuation. There are no focal liver masses. The gallbladder is surgically absent. No intra or extrahepatic biliary ductal dilatation is appreciated. The pancreas is unremarkable. The spleen is unremarkable. Evaluation of the upper GI tract demonstrates the stomach to be unremarkable. The duodenum is satisfactory in appearance. The small bowel is unremarkable. There is no mucosal thickening. No zone of transition is appreciated. There is no free fluid nor free air. There is a small fat-containing umbilical hernia. Evaluation of the colon demonstrate no evidence of obstruction or mass lesion. Scattered diverticuli are present without evidence of acute diverticulitis There is no mucosal thickening of the colon. The appendix is not clearly visualized. The adrenal glands are normal. Bilateral renal cysts are present. The largest cyst involves the midportion of the left kidney, is exophytic and measures up to 4.8 cm. Scans through the pelvis demonstrates extensive rectosigmoid diverticulosis without acute diverticulitis. There is mild mesenteric stranding adjacent to the proximal and mid sigmoid colon which may relate to changes associated with prior episodes of diverticulitis. The bladder is unremarkable. The remainder of the pelvic contents are unremarkable. There is no mass or adenopathy. There is no free fluid. Arthritic changes of the spine are present with multilevel disc space narrowing and vacuum disc as well as endplate sclerosis and marginal spurring. The retroperitoneum is satisfactory in appearance without evidence of adenopathy. Atherosclerotic changes of the aorta and iliac arteries are noted. IMPRESSION: Colonic diverticulosis without evidence of acute diverticulitis. Bilateral renal cysts, the largest cyst is on the left measuring up to 4.8 cm. Report Dictated on Electronically Signed By: Jb Ahmadi DO Electronically Signed Date/Time: 02/28/2023 1:44 PM EDT [facility] [place] Radiology Study observation (narrative) Rogelio Conor harvey CT Abdomen WO contrastOrdere d By: Jb Ahmadi on 02-28-2023 [place] Work Phone: Comprehensive metabolic 1998 panelOrdered By: Azucena Li on 02-28-2023 Albumin [Mass/Vol] 3.7 g/dL 3.5 - 5.0 g/dL [facility] ALP [Catalytic activity/Vol] 119 U/L 38 - 126 U/L [facility] ALT [Catalytic activity/Vol] 18 U/L 0 - 34 U/L [facility] Anion gap [Moles/Vol] 8 mmol/L 3 - 13 mmol/L [facility] AST [Catalytic activity/Vol] 24 U/L 15 - 46 U/L [facility] Bilirubin [Mass/Vol] 0.5 mg/dL 0.2 - 1 .3 mg/dL [facility] Calcium [Mass/Vol] 8.4 mg/dL 8.4 - 10. 4 mg/dL [facility] Chloride [Moles/Vol] 96 mmol/L Low 98 - 10 7 mmol/L [facility] CO2 [Moles/Vol] 26 mmol/L 22 - 30 mmol/L [facility] Creatinine [Mass/Vol] 1.22 mg/dL High 0.52 - 1.04 mg/dL [facility] GFR/1.73 sq M.predicted MDRD (S/P/Bld) [Vol rate/Area] 45.2 mL/min/{1.73_m2} Low - PINF [facility] th Comment on above: Calculation based on the Chronic Kidney Disease Epidemiology Collaboration (CKD-EPI) equation refit without adjustment for race Glucose [Mass/Vol] 483 mg/dL Critically high 70 - 1 00 mg/dL [facility] Interpretation and review of laboratory results Abnormal [facility] Potassium [Moles/Vol] 4.0 mmol/L 3.5 - 5.1 mmol/L [facility] Protein [Mass/Vol] 6.6 g/dL 6.3 - 8.2 g/dL [facility] Sodium [Moles/Vol] 130 mmol/L Low 135 - 145 mmol/L [facility] Urea nitrogen [Mass/Vol] 20 mg/dL High 7 - 17 mg/dL [facility] ED Nursing Noteon 02-28-2023 ED Nursing Note Pt presents for admission per her PCP. Was sent to get kidneys evaluated per pt. Pt endorses lower back pain and burning and pain with urination. Was recently admitted. [facility] ED Provider Noteon 3 ED Provider Note [facility] 1E MED SURG EMERGENCY DEPARTMENT ENCOUNTER Pt Name: Radha Sandoval Birthdate 1945 Date of evaluation: 02/28/2023 Provider: Tasneem Whaley MD CHIEF COMPLAINT Chief Complaint Patient presents with Back Pain HISTORY OF PRESENT ILLNESS (Location/Symptom, Timing/Onset, Context/Setting, Quality, Duration, Modifying Factors, Severity) Note limiting factors. I wore a surgical mask for the entirety of this encounter. Radha Sandoval is a 77 y.o. female with a past medical history of CKD, hypertension, hyperlipidemia, obesity, urinary tract infection, presenting at the behest of her family medicine team who is concerned for dehydration and mild hyponatremia as well as renal injury. Patient presents with suprapubic cramping and lower back pain that radiates up into her bilateral flanks. Symptom nausea but no vomiting and felt feverish and reported a fever at home but does not have one currently. To call from her family medicine team after seeing them in clinic yesterday and was told that her labs were abnormal and to come into the hospital. Past Medical history reviewed. REVIEW OF SYSTEMS Negative except for above HPI Review of Systems PAST MEDICAL HISTORY Past Medical History: Diagnosis Date Acquired lymphedema Allergic Anxiety Arthritis Asthma Candidiasis of vulva and vagina CKD (chronic kidney disease) Depression Dietary counseling and surveillance Hyperlipidemia Hyperparathyroidism (HCC) Hypertension Hypothyroidism Malaise and fatigue Morbid obesity (HCC) Muscle weakness Nevus, non-neoplastic Pain in limb Pure hypercholesterolemia RLS (restless legs syndrome) Type 2 diabetes mellitus (HCC) Varicella SURGICAL HISTORY Past Surgical History: Procedure Laterality Date APPENDECTOMY CHOLECYSTECTOMY 1979 COLONOSCOPY 06/19/2008 COLONOSCOPY W/ BIOPSIES AND POLYPECTOMY N/A 12/07/2022 Performed by Avery Marshall DO at [facility] ENDOSCOPY EYE SURGERY Bilateral early 90' LUNG REMOVAL, PARTIAL Left ROTATOR CUFF REPAIR Left TONSILLECTOMY CURRENT MEDICATIONS Current Discharge Medication List CONTINUE these medications which have NOT CHANGED Details albuterol 108 (90 Base) MCG/ACT inhaler Inhale 2 puffs every 6 hours as needed for wheezing. amLODIPine (Norvasc) 10 MG tablet Take 1 tablet (10 mg) by mouth daily. Qty: 90 tablet, Refills: 1 Associated Diagnoses: Primary hypertension amoxicillin-clavulanate (Augmentin) 875-125 MG tablet Take 1 tablet by mouth 2 times daily for 7 days. Qty: 14 tablet, Refills: 0 Associated Diagnoses: Acute cystitis with hematuria baclofen (Lioresal) 10 MG tablet Take 1 tablet (10 mg) by mouth daily. Qty: 30 tablet, Refills: 0 Associated Diagnoses: Chronic left shoulder pain ergocalciferol (Vitamin D-2) 1.25 MG (13181 UT) capsule Take 1 capsule (1.25 mg) by mouth 1 (one) time per week. Qty: 90 capsule, Refills: 1 Associated Diagnoses: Vitamin D deficiency Glucose Blood (Blood Glucose Test) strip 4 times daily. hydrOXYzine HCl (Atarax) 25 MG tablet Take 1 tablet (25 mg) by mouth every 8 hours as needed for anxiety. Qty: 90 tablet, Refills: 0 Associated Diagnoses: Moderate episode of recurrent major depressive disorder (HCC) insulin aspart (NovoLOG FLEXPEN) 100 UNIT/ML pen Inject 16 Units under the skin in the morning and 16 Units at noon and 16 Units in the evening and 16 Units before bedtime. Before meals.. Qty: 10 mL, Refills: 1 levothyroxine (Synthroid, Levoxyl) 150 MCG tablet Take 1 tablet (150 mcg) by mouth daily. Qty: 30 tablet, Refills: 1 Associated Diagnoses: Acquired hypothyroidism lisinopril 40 MG tablet Take 1 tablet (40 mg) by mouth daily. Qty: 90 tablet, Refills: 1 Associated Diagnoses: Primary hypertension meloxicam (Mobic) 7.5 MG tablet Take 1 tablet (7.5 mg) by mouth daily. Qty: 90 tablet, Refills: 1 Associated Diagnoses: Chronic left shoulder pain PARoxetine (Paxil) 20 MG tablet Take 1 tablet (20 mg) by mouth every morning. Qty: 90 tablet, Refills: 1 Associated Diagnoses: Moderate episode of recurrent major depressive disorder (HCC) potassium chloride CR (K-Tab) 20 MEQ ER tablet Take 20 mEq by mouth daily. Do not crush, chew, or split. pramipexole (Mirapex) 0.125 MG tablet Take 2 tablets (0.25 mg) by mouth Nightly. Qty: 60 tablet, Refills: 1 Associated Diagnoses: Restless legs syndrome (RLS) rosuvastatin (Crestor) 10 MG tablet Take 1 tablet (10 mg) by mouth daily. Qty: 90 tablet, Refills: 1 Associated Diagnoses: Hyperlipidemia with target LDL less than 70 zolpidem (Ambien) 10 MG tablet Take 1 tablet (10 mg) by mouth Nightly as needed for sleep. Do not start before December 22, 2022. Qty: 30 tablet, Refills: 0 Associated Diagnoses: Primary insomnia ALLERGIES Codeine, Other, Oxycodone, Oxycodone-aspirin, and Vancomycin FAMILY HISTORY Family History Problem Relation Name Age of Onset Mental illness Mother GHANSHYAM COLEY Depression Moth (more content not included)... [facility] POCT glucose meteron 023 Glucose [Mass/Vol] 245 mg/dL High 70 - 100 mg/dL [facility] Interpretation and review of laboratory results Abnormal [facility] Performed by: [facility], [address] [place] [id number] CLIA ID: [id number] [facility] Glucose [Mass/Vol] 197 mg/dL High 70 - 100 mg/dL [facility] Interpretation and review of laboratory results Abnormal [facility] Performed by: [facility], [address] [place] [id number] CLIA ID: [id number] [facility] URINE CULTUREon 02-28-2023 Bacteria identified Cx Nom (U) URINE CULTURE (A) Reference ESCHERICHIA COLI >100,000 CFU/mL Escherichia coli (A) Organism: ESCHERICHIA COLI Antibiotic LAVINIA Interpretation Status Amoxicillin / Clavulanate <=2 ug/ml S F Ampicillin 4 ug/ml S F Ampicillin / Sulbactam <=2 ug/ml S F Aztreonam <=1 ug/ml S F Cefazolin <=4 ug/ml S F Cefepime <=1 ug/ml S F Ceftriaxone <=1 ug/ml S F Ciprofloxacin <=0.25 ug/ml S F Gentamicin <=1 ug/ml S F Meropenem <=0.25 ug/ml S F Nitrofurantoin <=16 ug/ml S F Piperacillin / Tazobactam <=4 ug/ml S F Trimethoprim / Sulfamethoxazole <=20 ug/ml S F [ S = SUSCEPTIBLE R = RESISTANT I = INTERMEDIATE S-DD = Susceptible-dose dependent NS = Non-susceptible NO = No Interpretation ] [facility] Comment on above: Performed By: #### L [id number] ####Trimmer Sorter: ASHLEY LLANOS ([id number])[facility] ([address] Urinalysis complete panel (U )on 02-28-2023 Bacteria LM.HPF (Urine sed) [#/Area] Moderate Abnormal Negative /HPF [facility] Bilirubin Ql (U) Negative Negative mg/dL [facility] Clarity (U) Turbid Abnormal Clear [facility] Color (U) Light Yellow Lt. Yellow [facility] Epithelial cells.squamous LM.HPF (Urine sed) [#/Area] 3-5 [facility] h Glucose Ql (U) >1,000 Abnormal Normal (<70) mg/dL [facility] Granular casts LM.HPF (Urine sed) [#/Area] 0-2 Abnormal Negative /LPF [facility] Hemoglobin Ql (U) Negative Negative mg/dL [facility] Hyaline casts Auto (Urine sed) [#/Area] 3-5 Abnormal Negative /LPF [facility] Interpretation and review of laboratory results Abnormal [facility] Ketones (U) [Mass/Vol] Negative Negat katherine mg/dL [facility] Leukocyte clumps LM.HPF (Urine sed) [#/Area] Occasional Abnormal Negative /HPF [facility] Leukocyte esterase Test strip Ql (U) 250 Abnormal Negative Sandeep/uL [facility] Mucus LM.HPF (Urine sed) [#/Area] Few Negative /LPF [facility] Nitrite Ql (U) Positive Abnormal Negative [facility] th pH (U) 5.0 [pH] 5.0 - 8.0 pH [facility] Protein (U) [Mass/Vol] 20 mg/dL Abnormal Negative [facility] RBC LM.HPF (Urine sed) [#/Area] 0-2 [facility] Specific gravity (U) [Rel density] 1.020 1.005 - 1.030 [facility] Urobilinogen (U) [Mass/Vol] Normal Normal (0-1) mg/dL [facility] WBC LM.HPF (Urine sed) [#/Area] 11-25 Abnormal [facility] Yeast.budding LM.HPF (Urine sed) [#/Area] Few Abnormal Negative /HPF [facility] 36on 02-27-2023 36 Rx sent Normal [facility] System [facility] Glucose (Bld) [Mass/Vol]on 0 02-27-2023 Glucose Blood, POC 494 mg/dL [facility] Interpretation and review of laboratory results Abnormal [facility] Office Visiton 02-27-2023 Follow-up visit [id number] Radha Sandoval 1945 F Date Provider Department Center 02/27/2023 [id number] GRANADOS [facility] Family History Problem Relation Age of Onset Mental illness Mother Depression Mother Heart disease Father High Blood Pressure Father Asthma Father Hypertension Father Diabetes Brother Family Status - Relation Status Age at Mother Father Brother Level of Service:65182 [place] OFFICE/OUTPATIENT ESTABLISHED MOD MDM 30-39 MIN Reason for Visit and Comments: Blood Sugar Problem [219062] Knee Pain [562110] Diarrhea [35] - Back Pain [12] [facility] Progress Noteon 02-27-2023 Progress Note No fever or chills, abdomen soft. Unknown etiology. Will check CBC and CMP. Consider stool culture if symptoms continue [facility] Progress Note We will check CMP today [facility] Progress Note UA positive nitrites and leuks moderate blood, will start antibiotic therapy sent for culture [facility] Progress Note Controlled. Continue amlodipine 10 mg daily and lisinopril 40 mg daily [facility] Progress Note Will check TSH today due to recent fatigue [facility] Progress Note Patient has not followed up with wound center upon visualization today wound unchanged, advised to keep area as clean as possible with frequent changes of incontinence pads [facility] Progress Note Uncontrolled. Patien t having difficulties with compliance. Continue insulin regimen. Possible increased glucose due to urinary tract infection we will treat [facility] Progress Note 02/27/2023 Radha Sandoval (: 1945) is a 77 y.o. female , Established patient, here for evaluation of the following chief complaint(s): Blood Sugar Problem, Knee Pain, Diarrhea (/), and Back Pain ASSESSMENT/PLAN: 1. 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 Patient having difficulties with compliance. Continue insulin regimen. Possible increased glucose due to urinary tract infection we will treat Orders: - POCT glucose manually resulted - POCT urinalysis dipstick manually resulted - Comprehensive metabolic panel - Magnesium 2. Urinary tract infection symptoms - Urine culture (clean catch) 3. Primary hypertension Assessment & Plan: Controlled. Continue amlodipine 10 mg daily and lisinopril 40 mg daily Orders: - Comprehensive metabolic panel 4. Hypokalemia - Comprehensive metabolic panel - Magnesium 5. Acquired hypothyroidism Assessment & Plan: Will check TSH today due to recent fatigue Orders: - TSH 6. History of GI bleed - CBC auto differential 7. Acute cystitis with hematuria Assessment & Plan: UA positive nitrites and leuks moderate blood, will start antibiotic therapy sent for culture Orders: - amoxicillin-clavulanate (Augmentin) 875-125 MG tablet; Take 1 tablet by mouth 2 times daily for 7 days., Starting Mon02/27/2023, Until Mon03/06/2023, Normal 8. Wound of right buttock, subsequent encounter Assessment & Plan: Patient has not followed up with wound center upon visualization today wound unchanged, advised to keep area as clean as possible with frequent changes of incontinence pads 9. Chronic renal impairment, stage 3b (HCC) Assessment & Plan: We will check CMP today 10. Diarrhea, unspecified type Assessment & Plan: No fever or chills, abdomen soft. Unknown etiology. Will check CBC and CMP. Consider stool culture if symptoms continue VS stable. No acute distress. Follow up for as directed pending test results. SUBJECTIVE/OBJECTIVE: [facility] - Radha Sandoval (: 1945) is a 77 y.o. female , Established patient, here for the evaluation of the following chief complaint(s): Blood Sugar Problem, Knee Pain, Diarrhea (/), and Back Pain Patient arrived 20 minutes late for her appointment today. Previously missed 2 appointments last week and this morning. Reports that she has been very sleepy and has missed her appointments due to fatigue. She is concerned that she has a urinary tract infection as she is urinating a lot. Also states that her Glucose readings have been high. Takes insulin 6 am, 1200, 6 pm, and midnight. Novolog 16 units. Forgot at 1200 today. States she usually forgets at least 1 dose a day. States she remembering her morning insulin dosing. Loose stools for a couple weeks now. No associated fever or chills, no abdominal pain. Has not checked her blood sugar today, noted In office [id number] testing 494. Urination Increased frequency, dysuria intermittently. No fever, or chills. No chest pain or shortness of breath. Low back pain. No new incontinence. States she was late today due to having to go to the bank because her banking accounts got hacked so she had to Freeze the accounts (reports that her accts were messed up) and does not have a way to pay for her insulin. Will run out soon. Has Maximino (son) work in [employer]. He may be able to help her out. Prior to Admission medications Medication Sig Start Date End Date Taking? Authorizing Provider albuterol 108 (90 Base) MCG/ACT inhaler Inhale 2 puffs every 6 hours as needed for wheezing. Yes Historical Provider, amLODIPine (Norvasc) 10 MG tablet Take 1 tablet (10 mg) by mouth daily. 12/08/22 Yes ELSA Arriaza CNP baclofen (Lioresal) 10 MG tablet Take 1 tablet (10 mg) by mouth daily. 02/14/23 Yes Shiv Lopez MD ergocalciferol (Vitamin D-2) 1.25 MG (87602 UT) capsule Take 1 capsule (1.25 mg) by mouth 1 (one) time per week. 01/13/23 Yes ELSA Arriaza CNP Glucose Blood (Blood Glucose Test) strip 4 times daily. 01/10/22 Yes Historical Provider, insulin aspart (NovoLOG FLEXPEN) 100 UNIT/ML pen Inject 16 Units under the skin in the morning and 16 Units at noon and 16 Units in the evening and 16 Units before bedtime. Before meals.. 02/27/23 Yes Shiv Lopez MD levothyroxine (Synthroid, Levoxyl) 150 MCG tablet Take 1 tablet (150 mcg) by mouth daily. 01/13/23 04/13/23 Yes ELSA Arriaza CNP lisinopril 40 MG tablet Take 1 tablet (40 mg) by mouth daily. 12/08/22 Yes ELSA Arriaza CNP meloxicam (Mobic) 7.5 MG tablet Take 1 tablet (7.5 mg) by mouth daily. 02/07/23 Yes ELSA Arriaza CNP PARoxetine (Paxil) 20 MG tablet Take 1 tablet (20 mg) by mouth every morning. 12/08/22 Yes ELSA Arriaza CNP potassium chlor (more content not included)... [facility] Progress Note Please see if she rodriguez s gone to ER. Call and encourage her to go if she hasn't yet. [facility] Progress Note Patient was identifi ed by name and Date of . POCT glucose at [facility]-provider notified. [facility] Urinalysis macro (dipstick) panel (U)on 02-27-2023 Bilirubin, UA Moderate [facility] Blood, UA Small [facility] Glucose, UA >1,000 [facility] Interpretation and review of laboratory results Abnormal [facility] Ketones, UA Trace [facility] Leukocytes, UA Moderate [facility] Nitrite, UA Positive [facility] pH, UA 6.0 [facility] Protein, UA Trace [facility] Spec Grav, UA 1.010 [facility] U[facility], [facility]2 [facility] 36on 02-24-2023 36 S: Patient spoke rené h [facility] nurse regarding: Patient needs refill on Novolog. She is out of medication. B: Onset of symptoms/concern: today A: Pt states she needs refill of her Novolog pen, she is out. R: Pt is aware of message to provider for refill. Allergies and pharmacy verified. call center dispatcher paged. Per YAZMIN Gracia Novolog Flexpen 16 units QID, 30 days, 0 refills. Called to [facility] pharmacy, order pended on chart. Reason for Disposition [1] Prescription refill request for ESSENTIAL medicine (i.e., likelihood of harm to patient if not taken) AND [2] triager unable to refill per department policy Protocols used: Medication Refill and [facility]al [facility] Patient is out of medication. This was sent to nurse triage. Medication name: insulin aspart (NovoLOG FLEXPEN) Medication dosage: 100 units/ML Monthly quantity needed: 5 How many day supply requestin days Medication route: subcutaneous injection (SQ/SC) Medication administration time(s): 4 times a day (QID) If taking medication PRN, reason for taking medication: N/A If this is a controlled substance do you receive this or any other controlled medication from any other doctor or facility: N/A Ordering provider: John Date of last office visit: 02.07.2023 Date of next office visit: 02.27.2023 Date of last refill: (see medication tab): 06.24.2021 Updated/Validated preferred pharmacy: Yes Patient instructed to contact the pharmacy prior to picking up the medication: Yes [place] [id number] Noted. Agree with disposition. [place] [phone] Sent a secure chat edie Hymans she is working on the [employer]. [place] [id number] S: Patient called [facility] clinical access bone gap with complaint of elevated blood sugar B: Concern for urine infection , Calling to report blood sugar 387 this morning , she is drinking water A: She stated she was up most of the night and with elevated blood sugar. She is concerned for UTI , but denies urgency and frequency . She denies shortness of breath and states she took her insulin this morning R: She has a scheduled appointment this morning. She was advised to call the paramedics for elevated blood sugar with assoc. Weakness or rapid breathing. Patient instructed to call back with worsening symptoms, concerns or questions. Reason for Disposition [1] Blood glucose > 300 mg/dL (16.7 mmol/L) AND [2] uses insulin (e.g., insulin-dependent, all people with type 1 diabetes) Protocols used: Diabetes - High Blood [facility] 36on 02-23-2023 36 faxed [place] [phone] Not quite sure what that was all about but I guess I did which she told me to do instructions were kind of difficult to understand [place] [id number] Re-printing and plac ing on your desk, need to resign next to original signature with the date and then initial next to Faby with the date. [facility] 36 Faxed on 02/17/23 [place] [id number] S: Patient spoke wit h [facility] nurse regarding High Blood Sugar number possible UTI. B: Onset of symptoms/concern x 2 days. A: Pt reports has been having issues with high BS. Pt reports for the past two days BS have been elevated over the past two days. Pt reports wears a diaper and today had an episode of incontinence. Pt denies dysuria, lower abd pain or fever. Endorses lower back pain. Pt reports last blood sugar 375 approx. 1 hr ago. Pt felt as could have a vaginal infection, however, denies any vaginal symptoms or discharge. R: Office backline called and spoke to Jackie Granados for second level triage. She advises is ok to wait till appointment tomorrow to be seen. Pt was then called back and advised. Patient understands care advice. No further needs at this time. Patient instructed to call back with new or worsening symptoms. Reason for Disposition Patient wants to be seen Protocols used: Diabetes - High Blood [id number] [facility] 36 Name of caller: Paula Contact phone number: [phone] Relationship to Patient: [facility] Diabetic Provider: Dr. Lopez Practice: [place] [facility] Chief Complaint/Reason for Call: Paula from [facility] Diabetic states that they did receive Rx for Freestyle Evin, however it was not accepted due to the correction on the sign date. Paula is requesting that we please resend the Rx, have Provider resign it, and have the Drs initial next to the date as well. Rx can be sent to #[phone]. Please advise. Best time of day caller can be reached: Any Patient advised that office/PCP has 24-48 business hours to return their call: No [facility] 36on 02-17-2023 36 Noted. Fax put in burt x to go out [facility] 36 Name of caller: Colette noel Contact phone number: [phone] Relationship to Patient: [facility] Provider: Dr. Lopez Practice: [facility] Chief Complaint/Reason for Call: Caller wanted to follow up regarding request for pt diabetic continuous glucose meter that was faxed on 02.02.2023. Caller stated they received the Rx but the Rx was incomplete. Caller would like to ask office to re write with doctors initial and fax again to: [phone]. Please advise. Thank you. Best time of day caller can be reached: Any Patient advised that office/PCP has 24-48 business hours to return their call: Yes [facility] PATINSon 02-15-2023 PATINS Return in 1 week rené Magallanes If you have any questions or concerns, please call our wound center at [phone] or [phone]. Offloading Try to avoid pressure and sheering to wound area as much as possible. Can use padding or a type of waffle cushion when sitting. Try to reposition every 2 hours. Activity as tolerated. Cleansing Shower as normal. Do not soak area. Shower or sponge bathe, but cleanse wound separately with antibacterial soap and water, pat dry, apply new dressing. Wound Dressing: Daily or every other day Xeroform cut smaller piece to fit wound Bordered foam dressing Try to increase protein as diet tolerates, to help improve healing. [facility] 36on 02-14-2023 36 Notified. [place] [id number] Rx sent [place] [address] Spoke with patient s he found the bottle and it is the baclofen [place] [address] The only medications on her list and on her history it would have been used for cramps in her legs would have been her Mirapex and that 1 was just refilled in December for baclofen which is an actual muscle relaxer and that was refilled in December other than those I do not know what she would be talking about [place] [address] S: Patient spoke rené grover [facility] nurse regarding out of medication for muscle spasms in legs. B: Onset of symptoms/concern began a couple days ago. A: Patient has had muscle spasms in her legs, was prescribed a medication for it that helped. She is out of the medication, but cannot remember what the medication was and does not think it was any of the medications I read to her on her med list. States ran out of the medication 2 days ago and had the leg spasms last night. States it isn't the meloxicam, baclofen, or pramipexole. She already threw the bottle away. She would like a refill of it. Allergies and pharmacy reviewed. R: Please let patient know when medication of muscle spasms is sent to her pharmacy. No further needs at this time. Patient instructed to call back with new or worsening symptoms. Reason for Disposition Prescription refill request for NON-ESSENTIAL medicine (i.e., no harm to patient if med not taken) and triager unable to refill per department policy Protocols used: Medication Refill and Renewal [id number] [facility] Office Visiton 02-07-2023 Follow-up visit [id number] Radha Sandoval 1945 F Date Provider Department Center 02/07/2023 [id number] GRANADOS [facility] Family History Problem Relation Age of Onset Mental illness Mother Depression Mother Heart disease Father High Blood Pressure Father Asthma Father Hypertension Father Diabetes Brother Family Status - Relation Status Age at Mother Father Brother Level of Service:05923 [place] OFFICE/OUTPATIENT ESTABLISHED LOW MDM 20-29 MIN Reason for Visit and Comments: Sore [107062] - On buttocks-getting worse [facility] Progress Noteon 02-07-2023 Progress Note Chronic. Refill mobic. [facility] Progress Note Avoid pressure to ar ea, avoid friction, keep area as dry as possible. Refer to wound clinic. [facility] Progress Note 02/07/2023 Radha Sandoval (: 1945) is a 77 y.o. female , Established patient, here for evaluation of the following chief complaint(s): Sore (On buttocks-getting worse) ASSESSMENT/PLAN: 1. Wound of right buttock, subsequent encounter Assessment & Plan: Avoid pressure to area, avoid friction, keep area as dry as possible. Refer to wound clinic. Orders: - [facility] 2. Chronic left shoulder pain Assessment & Plan: Chronic. Refill mobic. Orders: - meloxicam (Mobic) 7.5 MG tablet; Take 1 tablet (7.5 mg) by mouth daily., Starting Mon02/07/2023, Normal Follow up for with primary care provider as scheduled. SUBJECTIVE/OBJECTIVE: HPI - Radha Sandoval (: 1945) is a 77 y.o. female , Established patient, here for the evaluation of the following chief complaint(s): Sore (On buttocks-getting worse) Reports worsening buttock wound, first noticed in 09/2022, was getting better at that time, was putting vaseline on it, using donut cushion to avoid pressure. Wears incontinence pads, states that she noticed it has been bleeding a little and has had increasing discomfort when sitting over the past month. No fever or chills. Prior to Admission medications Medication Sig Start Date End Date Taking? Authorizing Provider amLODIPine (Norvasc) 10 MG tablet Take 1 tablet (10 mg) by mouth daily. 12/08/22 Katia Granados APRN - JORGE baclofen (Lioresal) 10 MG tablet Take 1 tablet (10 mg) by mouth daily. 01/13/23 Katia Granados APRN - JORGE ergocalciferol (Vitamin D-2) 1.25 MG (97475 UT) capsule Take 1 capsule (1.25 mg) by mouth 1 (one) time per week. 01/13/23 ELSA Arriaza CNP Glucose Blood (Blood Glucose Test) strip Test blood sugar 3 times a day.PLEASE FILL FOR TRUE METRIX TEST STRIPS 01/10/22 Historical Provider, hydrOXYzine HCl (Atarax) 25 MG tablet Take 1 tablet (25 mg) by mouth every 8 hours as needed for anxiety. 12/08/22 01/07/23 ELSA Arriaza CNP insulin aspart (NovoLOG FLEXPEN) 100 UNIT/ML pen Inject 16 Units under the skin. Before meals. 06/24/21 Historical Provider, levothyroxine (Synthroid, Levoxyl) 150 MCG tablet Take 1 tablet (150 mcg) by mouth daily. 01/13/23 04/13/23 ELSA Arriaza CNP lisinopril 40 MG tablet Take 1 tablet (40 mg) by mouth daily. 12/08/22 ELSA Arriaza CNP PARoxetine (Paxil) 20 MG tablet Take 1 tablet (20 mg) by mouth every morning. 12/08/22 ELSA Arriaza CNP pramipexole (Mirapex) 0.125 MG tablet Take 2 tablets (0.25 mg) by mouth Nightly. 01/13/23 03/14/23 Katia Granados APRN - JORGE rosuvastatin (Crestor) 10 MG tablet Take 1 tablet (10 mg) by mouth daily. 12/08/22 ELSA Arriaza CNP senna-docusate sodium (Senokot-S) 8.6-50 MG tablet Take 1 tablet by mouth daily. 12/13/22 02/11/23 ELSA Arriaza CNP zolpidem (Ambien) 10 MG tablet Take 1 tablet (10 mg) by mouth Nightly as needed for sleep. Do not start before December 22, 2022. 12/22/22 01/21/23 ELSA Arriaza CNP Review of Systems Constitutional: Negative for activity change, appetite change, chills, fatigue and fever. Respiratory: Negative. Cardiovascular: Positive for leg swelling (chronic- reports better than usual. wearing compression stockings on today). Negative for chest pain and palpitations. Genitourinary: Negative for difficulty urinating (has some incontinence, not new). Musculoskeletal: Positive for arthralgias. Negative for joint swelling. Skin: Positive for wound. Vitals: 02/07/23 1039 02/07/23 1118 BP: (!) 158/80 (!) 146/72 Pulse: 88 Resp: 20 Temp: 36.3 ?C (97.3 ?F) TempSrc: Infrared SpO2: 96% Weight: 242 lb 6.4 oz (110 kg) Physical Exam Constitutional: General: She is not in acute distress. Appearance: Normal appearance. She is obese. She is not ill-appearing. Cardiovascular: Rate and Rhythm: Normal rate and regular rhythm. Pulses: Normal pulses. Heart sounds: Normal heart sounds. Pulmonary: Effort: Pulmonary effort is normal. Breath sounds: Normal breath sounds. Skin: General: Skin is warm and dry. Findings: Lesion present. Neurological: Mental Status: She is alert and oriented to person, place, and time. An electronic signature was used to authenticate this note. ELSA Arriaza CNP 02/07/2023 12:53 PM Normal [facility] Progress Note Patient was identifi ed by name and Date of . PHARMACY VERIFIED WITH [facility] [place]. Normal [facility] 36on 02-06-2023 36 S: Pt calling [facility] c/o sore on her buttocks. B: This has been present about one month. A: Sore is now oozing blood for past few days. She has not visualized it. Feels like there might be a scab on it. Pt is putting Vasoline on it. It is now painful for past few days. Pain is moderate, 4/10. Pt feels it has gotten bigger as well. She denies fever or chills. Pt is a diabetic. R: Appointment scheduled. Negative Covid 19 screen. Advised pt to call back with new or worsening symptoms. She verbalized understanding. Reason for Disposition [1] Looks infected (spreading redness, pus) AND [2] diabetes mellitus or weak immune system (e.g., HIV positive, cancer chemo, splenectomy, organ transplant, chronic steroids) Protocols used: [id number] Normal [facility] Basic metabolic 1998 panelon 12-07-2022 Anion gap [Moles/Vol] 4 mmol/L 3 - 13 mmol/L [facility] Calcium [Mass/Vol] 7.2 mg/dL Low 8.4 - 10. 4 mg/dL [facility] Chloride [Moles/Vol] 110 mmol/L High 98 - 10 7 mmol/L [facility] CO2 [Moles/Vol] 24 mmol/L 22 - 30 mmol/L [facility] Creatinine [Mass/Vol] 0.63 mg/dL 0.52 - 1.04 mg/dL [facility] GFR/1.73 sq M.predicted MDRD (S/P/Bld) [Vol rate/Area] - PINF [facility] Comment on above: Calculation based on the Chronic Kidney Disease Epidemiology Collaboration (CKD-EPI) equation refit without adjustment for race Glucose [Mass/Vol] 182 mg/dL High 70 - 100 mg/dL [facility] Interpretation and review of laboratory results Abnormal [facility] Potassium [Moles/Vol] 3.3 mmol/L Low 3.5 - 5.1 mmol/L [facility] Sodium [Moles/Vol] 137 mmol/L 135 - 145 mmol/L [facility] Urea nitrogen [Mass/Vol] 14 mg/dL 7 - 17 mg/dL [facility] CBC panel Auto (Bld)Ordered By: Wendy Bruce on 12-07-2022 Erythrocyte distribution width (RBC) [Ratio] 13.8 % 11.5 - 14.5 % [facility] Hematocrit (Bld) [Volume fraction] 33.0 % Low 35.0 - 47.0 % [facility] Hemoglobin (Bld) [Mass/Vol] 10.6 g/dL Low 11.7 - 16.0 g/dL [facility] Interpretation and review of laboratory results Abnormal [facility] MCH (RBC) [Entitic mass] 29.3 pg 26.0 - 34.0 pg [facility] MCHC (RBC) [Mass/Vol] 32.2 % 32.0 - 36.0 % [facility] MCV (RBC) [Entitic vol] 90.8 fL 80.0 - 98.0 fL [facility] Platelet mean volume (Bld) [Entitic vol] 8.1 fL 7.4 - 12.4 fL [facility] Platelets (Bld) [#/Vol] 230 10*3/uL 140 - 440 10*3/uL [facility] RBC (Bld) [#/Vol] 3.63 10*6/uL Low 3.8 - 5.20 10*6/uL [facility] WBC (Bld) [#/Vol] 10.7 10*3/uL 3.6 - 10.7 10*3/uL [facility] Comprehensive metabolic 1998 panelon 12-07-2022 Albumin [Mass/Vol] 3.4 g/dL Low 3.5 - 5.0 g/dL [facility] ALP [Catalytic activity/Vol] 96 U/L 38 - 126 U/L [facility] ALT [Catalytic activity/Vol] 15 U/L 0 - 34 U/L [facility] Anion gap [Moles/Vol] 4 mmol/L 3 - 13 mmol/L [facility] AST [Catalytic activity/Vol] 40 U/L 15 - 46 U/L [facility] Bilirubin [Mass/Vol] 0.5 mg/dL 0.2 - 1 .3 mg/dL [facility] Calcium [Mass/Vol] 7.5 mg/dL Low 8.4 - 10. 4 mg/dL [facility] Chloride [Moles/Vol] 105 mmol/L 98 - 10 7 mmol/L [facility] CO2 [Moles/Vol] 27 mmol/L 22 - 30 mmol/L [facility] Creatinine [Mass/Vol] 0.76 mg/dL 0.52 - 1.04 mg/dL [facility] GFR/1.73 sq M.predicted MDRD (S/P/Bld) [Vol rate/Area] 79.8 mL/min/{1.73_m2} - PINF [facility] Comment on above: Calculation based on the Chronic Kidney Disease Epidemiology Collaboration (CKD-EPI) equation refit without adjustment for race Glucose [Mass/Vol] 188 mg/dL High 70 - 100 mg/dL [facility] Interpretation and review of laboratory results Abnormal [facility] Potassium [Moles/Vol] 3.4 mmol/L Low 3.5 - 5.1 mmol/L [facility] Protein [Mass/Vol] 6.2 g/dL Low 6.3 - 8.2 g/dL [facility] Sodium [Moles/Vol] 136 mmol/L 135 - 145 mmol/L [facility] Urea nitrogen [Mass/Vol] 10 mg/dL 7 - 17 mg/dL [facility] Hemoglobin (Bld) [Mass/Vol]O rdered By: Humphrey Juarez on 12-07-2022 Hematocrit (Bld) [Volume fraction] 33.8 % Low 35.0 - 47.0 % [facility] Interpretation and review of laboratory results Abnormal [facility] Hemoglobin (Bld) [Mass/Vol]o n 12-07-2022 Hematocrit (Bld) [Volume fraction] 33.6 % Low 35.0 - 47.0 % [facility] Interpretation and review of laboratory results Abnormal [facility] Hemoglobin (Bld) [Mass/Vol]O rdered By: Rosey Viera on 12-07-2022 Hematocrit (Bld) [Volume fraction] 32.0 % Low 35.0 - 47.0 % [facility] Interpretation and review of laboratory results Abnormal [facility] Laboratory - Chemistry and C hemistry - challengeon 12-07-2022 Magnesium [Mass/Vol] 1.3 mg/dL Low 1.6 - 2 .3 mg/dL [facility] Glucose [Mass/Vol] 179 mg/dL High 70 - 100 mg/dL [facility] Glucose [Mass/Vol] 158 mg/dL High 70 - 100 mg/dL [facility] Glucose [Mass/Vol] 160 mg/dL High 70 - 100 mg/dL [facility] Laboratory - Hematology and Cell countsOrdered By: Humphrey Juarez on 12-07-2022 Hemoglobin (Bld) [Mass/Vol] 10.9 g/dL Low 11.7 - 16.0 g/dL [facility] Laboratory - Hematology and Cell countson 12-07-2022 Hemoglobin (Bld) [Mass/Vol] 11.0 g/dL Low 11.7 - 16.0 g/dL [facility] Laboratory - Hematology and Cell countsOrdered By: Rosey Viera on 12-07-2022 Hemoglobin (Bld) [Mass/Vol] 10.4 g/dL Low 11.7 - 16.0 g/dL [facility] Magnesium [Mass/Vol]on 12-07 Interpretation and review of laboratory results Abnormal [facility] No Panel Informationon 12-07 Interpretation and review of laboratory results Abnormal [facility]formed by: [facility], [address] [place] [id number] CLIA ID: [id number] [facility] Interpretation and review of laboratory results Abnormal [facility] Performed by: [facility], [address] [place] [id number] CLIA ID: [id number] [facility] Interpretation and review of laboratory results Abnormal [facility] Performed by: [facility], [address] [place] [address] CLIA ID: [id number] [facility] Basic metabolic 1998 panelon 12-06-2022 Anion gap [Moles/Vol] 2 mmol/L Low 3 - 13 mmol/L [facility] Calcium [Mass/Vol] 7.9 mg/dL Low 8.4 - 10. 4 mg/dL [facility] Chloride [Moles/Vol] 105 mmol/L 98 - 10 7 mmol/L [facility] CO2 [Moles/Vol] 26 mmol/L 22 - 30 mmol/L [facility] Creatinine [Mass/Vol] 0.68 mg/dL 0.52 - 1.04 mg/dL [facility] GFR/1.73 sq M.predicted MDRD (S/P/Bld) [Vol rate/Area] 88.7 mL/min/{1.73_m2} - PINF [facility] Comment on above: Calculation based on the Chronic Kidney Disease Epidemiology Collaboration (CKD-EPI) equation refit without adjustment for race Glucose [Mass/Vol] 169 mg/dL High 70 - 100 mg/dL [facility] Interpretation and review of laboratory results Abnormal [facility] Potassium [Moles/Vol] 3.5 mmol/L 3.5 - 5.1 mmol/L [facility] Sodium [Moles/Vol] 134 mmol/L Low 135 - 145 mmol/L [facility] Urea nitrogen [Mass/Vol] 18 mg/dL High 7 - 17 mg/dL [facility] CBC panel Auto (Bld)Ordered By: Donavan Hernandez on 12-06-2022 Erythrocyte distribution width (RBC) [Ratio] 13.7 % 11.5 - 14.5 % [facility] Hematocrit (Bld) [Volume fraction] 33.4 % Low 35.0 - 47.0 % [facility] Hemoglobin (Bld) [Mass/Vol] 11.1 g/dL Low 11.7 - 16.0 g/dL [facility] Interpretation and review of laboratory results Abnormal [facility] MCH (RBC) [Entitic mass] 29.7 pg 26.0 - 34.0 pg [facility] MCHC (RBC) [Mass/Vol] 33.2 % 32.0 - 36.0 % [facility] MCV (RBC) [Entitic vol] 89.5 fL 80.0 - 98.0 fL [facility] Platelet mean volume (Bld) [Entitic vol] 8.4 fL 7.4 - 12.4 fL [facility] Platelets (Bld) [#/Vol] 233 10*3/uL 140 - 440 10*3/uL [facility] RBC (Bld) [#/Vol] 3.73 10*6/uL Low 3.8 - 5.20 10*6/uL [facility] WBC (Bld) [#/Vol] 9.8 10*3/uL 3.6 - 10.7 10*3/uL [facility] Hemoglobin (Bld) [Mass/Vol]o n 12-06-2022 Hematocrit (Bld) [Volume fraction] 36.6 % 35.0 - 47.0 % [facility] Interpretation and review of laboratory results Normal [facility] Hematocrit (Bld) [Volume fraction] 34.3 % Low 35.0 - 47.0 % [facility] Interpretation and review of laboratory results Abnormal [facility] Hemoglobin (Bld) [Mass/Vol]O rdered By: Lizeth Mckeon on 12-06-2022 Hematocrit (Bld) [Volume fraction] 33.9 % Low 35.0 - 47.0 % [facility] Interpretation and review of laboratory results Abnormal [facility] Iron and Iron binding capaci ty panelon 12-06-2022 Interpretation and review of laboratory results Normal [facility] Iron [Mass/Vol] 87 ug/dL 37 - 170 ug/dL [facility] Iron binding capacity [Mass/Vol] 298 ug/dL 261 - 497 ug/dL [facility] Iron saturation [Mass fraction] 29 % 15 - 50 % [facility] Laboratory - Chemistry and C hemistry - challengeon 12-06-2022 Glucose [Mass/Vol] 183 mg/dL High 70 - 100 mg/dL [facility] Glucose [Mass/Vol] 258 mg/dL High 70 - 100 mg/dL [facility] Glucose [Mass/Vol] 238 mg/dL High 70 - 100 mg/dL [facility] Glucose [Mass/Vol] 160 mg/dL High 70 - 100 mg/dL [facility] Laboratory - Coagulationon 0 12-06-2022 aPTT Coag (PPP) [Time] 25.4 s 20.0 - 30.5 s [facility] INR Coag (PPP) [Relative time] 1.0 {INR} 0.9 - 1.1 [facility] Comment on above: Recommended Anticoag ulant Therapy: SEE BELOW ----- INR of 2.0 - 3.0 : - Prophylaxis of Venous Thrombosis (high-risk surgery) - Treatment of Venous Thrombosis - Treatment of Pulmonary Embolism (Includes tissue heart valves, Acute Myocardial Infarction to prevent systemic embolism, Valvular Heart Disease, and Atrial Fibrillation) ----- INR of 2.5 - 3.5 : - Mechanical Prosthetic Valves (high risk) - If oral anticoagulant therapy is used to prevent Myocardial Infarction PT Coag (Bld) [Time] 11.2 s 9.0 - 1 2.0 s [facility] Laboratory - Hematology and Cell countson 12-06-2022 Hemoglobin (Bld) [Mass/Vol] 12.0 g/dL 11.7 - 16.0 g/dL [facility] Hemoglobin (Bld) [Mass/Vol] 11.3 g/dL Low 11.7 - 16.0 g/dL [facility] Laboratory - Hematology and Cell countsOrdered By: Lizeth Mckeon on 12-06-2022 Hemoglobin (Bld) [Mass/Vol] 11.0 g/dL Low 11.7 - 16.0 g/dL [facility] No Panel Informationon 12-06 Interpretation and review of laboratory results Abnormal [facility] Performed by: [facility], [address] [place] [address], [facility] [address] CLIA ID: [id number] [facility] Interpretation and review of laboratory results Abnormal [facility] Performed by: [facility], [address] [facility], [facility] [address] CLIA ID: [id number] [facility] Interpretation and review of laboratory results Abnormal [facility] Performed by: [facility], [address] [facility], [facility] [address] CLIA ID: [id number] [facility] [place] [facility] Interpretation and review of laboratory results Normal [facility] Interpretation and review of laboratory results Abnormal [facility] Performed by: [facility], [address] [facility], [facility] [address] CLIA ID: [id number] [facility] Basic metabolic 1998 panelon 12-05-2022 Anion gap [Moles/Vol] 5 mmol/L 3 - 13 mmol/L [facility] Calcium [Mass/Vol] 8.7 mg/dL 8.4 - 10. 4 mg/dL [facility] Chloride [Moles/Vol] 102 mmol/L 98 - 10 7 mmol/L [facility] CO2 [Moles/Vol] 29 mmol/L 22 - 30 mmol/L [facility] Creatinine [Mass/Vol] 0.91 mg/dL 0.52 - 1.04 mg/dL [facility] GFR/1.73 sq M.predicted MDRD (S/P/Bld) [Vol rate/Area] 64.3 mL/min/{1.73_m2} - [facility] Comment on above: Calculation based on the Chronic Kidney Disease Epidemiology Collaboration (CKD-EPI) equation refit without adjustment for race Glucose [Mass/Vol] 260 mg/dL High 70 - 100 mg/dL [facility] Interpretation and review of laboratory results Abnormal [facility] Potassium [Moles/Vol] 4.0 mmol/L 3.5 - 5.1 mmol/L [facility] Sodium [Moles/Vol] 136 mmol/L 135 - 145 mmol/L [facility] Urea nitrogen [Mass/Vol] 26 mg/dL High 7 - 17 mg/dL [facility] Blood type and Crossmatch anastasia reyesl (Bld)on 12-05-2022 ABO group Nom (Bld) O [facility] Blood group antibody screen GEL Ql Negative [facility] D Ag Ql (RBC) Positive [facility] CBC W Auto Differential pane l (Bld)Ordered By: Clayton Lozano on 12-05-2022 Basophils (Bld) [#/Vol] 0.1 10*3/uL 0.0 - 0.2 10*3/uL [facility] Basophils/100 WBC (Bld) 0.7 % 0.0 - 2.0 % [facility] Eosinophils (Bld) [#/Vol] 0.2 10*3/uL 0.0 - 0.5 10*3/uL [facility] Eosinophils/100 WBC (Bld) 2.0 % 1.0 - 6.0 % [facility] Erythrocyte distribution width (RBC) [Ratio] 13.9 % 11.5 - 14.5 % [facility] Hematocrit (Bld) [Volume fraction] 39.3 % 35.0 - 47.0 % [facility] Hemoglobin (Bld) [Mass/Vol] 12.9 g/dL 11.7 - 16.0 g/dL [facility] System Interpretation and review of laboratory results Abnormal [facility] Lymphocytes (Bld) [#/Vol] 1.8 10*3/uL 1.0 - 4.3 10*3/uL [facility] Lymphocytes/100 WBC (Bld) 14.3 % Low 20.0 - 40.0 % [facility] MCH (RBC) [Entitic mass] 29.5 pg 26.0 - 34.0 pg [facility] MCHC (RBC) [Mass/Vol] 32.8 % 32.0 - 36.0 % [facility] MCV (RBC) [Entitic vol] 89.8 fL 80.0 - 98.0 fL [facility] Monocytes (Bld) [#/Vol] 1.0 10*3/uL High 0.0 - 0.8 10*3/uL [facility] Monocytes/100 WBC (Bld) 7.6 % 2.0 - 10.0 % [facility] Neutrophils (Bld) [#/Vol] 9.4 10*3/uL High 1.8 - 7.0 10*3/uL [facility] Neutrophils/100 WBC (Bld) 75.4 % 40.0 - 80.0 % [facility] Nucleated RBC/100 WBC (Bld) [Ratio] 0.1 % [facility] Platelet mean volume (Bld) [Entitic vol] 8.6 fL 7.4 - 12.4 fL [facility] Platelets (Bld) [#/Vol] 271 10*3/uL 140 - 440 10*3/uL [facility] RBC (Bld) [#/Vol] 4.37 10*6/uL 3.8 - 5.20 10*6/uL [facility] WBC (Bld) [#/Vol] 12.5 10*3/uL High 3.6 - 10.7 10*3/uL [facility] CBC panel Auto (Bld)on 12-05 Erythrocyte distribution width (RBC) [Ratio] 13.7 % 11.5 - 14.5 % [facility] Hematocrit (Bld) [Volume fraction] 37.9 % 35.0 - 47.0 % [facility] Hemoglobin (Bld) [Mass/Vol] 12.3 g/dL 11.7 - 16.0 g/dL [facility] Interpretation and review of laboratory results Abnormal [facility] MCH (RBC) [Entitic mass] 29.2 pg 26.0 - 34.0 pg [facility] MCHC (RBC) [Mass/Vol] 32.4 % 32.0 - 36.0 % [facility] MCV (RBC) [Entitic vol] 90.1 fL 80.0 - 98.0 fL [facility] Platelet mean volume (Bld) [Entitic vol] 8.3 fL 7.4 - 12.4 fL [facility] Platelets (Bld) [#/Vol] 244 10*3/uL 140 - 440 10*3/uL [facility] RBC (Bld) [#/Vol] 4.21 10*6/uL 3.8 - 5.20 10*6/uL [facility] WBC (Bld) [#/Vol] 11.6 10*3/uL High 3.6 - 10.7 10*3/uL [facility] CT Abdomen and Pelvis W cont rast Anna 12-05-2022 The etiology of the symptoms is not certain. No extravasation of contrast visualized. Report Dictated on Electronically Signed By: Toñito Chandra Electronically Signed Date/Time: 12/05/2022 3:55 PM EDT [facility] Patient Name: RADHA SANDOVAL : 1945 [id number] Exam Date/Time: 12/05/2022 15:39 Procedure: CT ABDOMEN PELVIS ANGIOGRAM W AND/OR WO IV CONTRAST Ordering Provider: FULLER AMY Reason For Exam: GI bleed, lower Study: CT abdomen pelvis. INDICATION:GI bleeding COMPARISON:None FINDINGS: Dose reduction was employed with automated exposure control. Imaging of the abdomen and pelvis were performed With and without intravenous contrast 75 mL Isovue-370.. Imaging viewed in multiple planes. Additional imagin-D imaging created and reviewed on independent platform for better detection of significant pathology. Lung bases:No convincing acute process. Free air: No free air. Bowel: No convincing obstruction or focal inflammation, definite diverticulitis appendicitis or abscess. Diverticulosis noted. Limited, lack of oral contrast.. No extravasation of intravenous contrast into bowel loops. Peritoneal cavity:No convincing acute process. Gallbladder:Absent Liver spleen pancreas kidneys adrenal glands urinary bladder: No convincing acute process or findings to explain symptoms. Left renal cyst. Pelvic structures:No convincing acute process. Vascular:No convincing extravasation of contrast. Retroperitoneum: No adenopathy or acute process. Spine:No convincing acute process of bone, paraspinous soft tissues. Abdominal wall:Ventral hernia fat only. [facility] Toñito Chandra MD - 12/05/2022 Patient Name: RADHA SANDOVAL : 1945 Exam Date/Time: 12/05/2022 15:39 Procedure: CT ABDOMEN PELVIS ANGIOGRAM W AND/OR WO IV CONTRAST Ordering Provider: FULLER AMY Reason For Exam: GI bleed, lower Study: CT abdomen pelvis. INDICATION:GI bleeding COMPARISON:None FINDINGS: Dose reduction was employed with automated exposure control. Imaging of the abdomen and pelvis were performed With and without intravenous contrast 75 mL Isovue-370.. Imaging viewed in multiple planes. Additional imagin-D imaging created and reviewed on independent platform for better detection of significant pathology. Lung bases:No convincing acute process. Free air: No free air. Bowel: No convincing obstruction or focal inflammation, definite diverticulitis appendicitis or abscess. Diverticulosis noted. Limited, lack of oral contrast.. No extravasation of intravenous contrast into bowel loops. Peritoneal cavity:No convincing acute process. Gallbladder:Absent Liver spleen pancreas kidneys adrenal glands urinary bladder: No convincing acute process or findings to explain symptoms. Left renal cyst. Pelvic structures:No convincing acute process. Vascular:No convincing extravasation of contrast. Retroperitoneum: No adenopathy or acute process. Spine:No convincing acute process of bone, paraspinous soft tissues. Abdominal wall:Ventral hernia fat only. IMPRESSION: The etiology of the symptoms is not certain. No extravasation of contrast visualized. Report Dictated on Electronically Signed By: Toñito Chandra Electronically Signed Date/Time: 12/05/2022 3:55 PM EDT [facility] Radiology Study observation (narrative) [facility] alth CT Abdomen and Pelvis W cont rast IVOrdered By: Toñito Chandra on 12-05-2022 [facility] [place] Work Phone: Hemoglobin (Bld) [Mass/Vol]o n 12-05-2022 Interpretation and review of laboratory results Normal [facility] Hepatic function 2000 panelo n 12-05-2022 Albumin [Mass/Vol] 4.0 g/dL 3.5 - 5.0 g/dL [facility] ALP [Catalytic activity/Vol] 107 U/L 38 - 126 U/L [facility] ALT [Catalytic activity/Vol] 16 U/L 0 - 34 U/L [facility] AST [Catalytic activity/Vol] 25 U/L 15 - 46 U/L [facility] [place] Bilirubin [Mass/Vol] 0.9 mg/dL 0.2 - 1 .3 mg/dL [facility] Bilirubin.conjugated [Mass/Vol] 0.0 mg/dL 0.0 - 0.3 mg/dL [facility] Protein [Mass/Vol] 7.2 g/dL 6.3 - 8.2 g/dL [facility] Laboratory - Chemistry and C hemistry - challengeon 12-05-2022 Glucose [Mass/Vol] 196 mg/dL High 70 - 100 mg/dL [facility] Glucose [Mass/Vol] 215 mg/dL High 70 - 100 mg/dL [facility] Lipase [Catalytic activity/Vol] 43 U/L 23 - 300 U/L [facility] Laboratory - Coagulationon 0 12-05-2022 aPTT Coag (PPP) [Time] 22.1 s 20.0 - 30.5 s [facility] INR Coag (PPP) [Relative time] 1.0 {INR} 0.9 - 1.1 [facility] Comment on above: Recommended Anticoag ulant Therapy: SEE BELOW ----- INR of 2.0 - 3.0 : - Prophylaxis of Venous Thrombosis (high-risk surgery) - Treatment of Venous Thrombosis - Treatment of Pulmonary Embolism (Includes tissue heart valves, Acute Myocardial Infarction to prevent systemic embolism, Valvular Heart Disease, and Atrial Fibrillation) ----- INR of 2.5 - 3.5 : - Mechanical Prosthetic Valves (high risk) - If oral anticoagulant therapy is used to prevent Myocardial Infarction PT Coag (Bld) [Time] 11.0 s 9.0 - 1 2.0 s [facility] Laboratory - Hematology and Cell countson 12-05-2022 Hemoglobin (Bld) [Mass/Vol] 12.2 g/dL 11.7 - 16.0 g/dL [facility] No Panel Informationon 12-05 Interpretation and review of laboratory results Abnormal [facility] Performed by: [facility], [address] [place] [address] CLIA ID: [id number] [facility] Interpretation and review of laboratory results Normal [facility] Interpretation and review of laboratory results Abnormal [facility]formed by: [facility], [address] [facility] [address] CLIA ID: [id number] [facility] Interpretation and review of laboratory results Normal [facility] XR CHEST (2 VW)on 09-09-2021 Patient Name: RADHA SANDOVAL Diagnostic Radiology ACCESSION EXAM DATE/TIME PROCEDURE ORDERING PROVIDER [id number] 09/09/2021 10:10 EDT CR Chest PA & LAT MD LOPEZ DARRELL LEROY CPT code 79440 Reason For Exam (CR Chest PA & LAT) dyspnea Report Clinical History: dyspnea Comparison: 04/22/2021 Technique: PA and lateral radiographs were obtained of the chest. Findings: The lungs are clear with no acute infiltrate or effusion. The heart size and mediastinal contours are normal. Pulmonary vascularity is normal and there is no pneumothorax. Status post ORIF of the left shoulder. Impression: Lungs clear with no acute infiltrate or effusion. Report Dictated on Workstation: [id number] Relations --- Final --- Dictating Physician: MD HELTON YUN ROBERT Signed Date and Time: 09/09/2021 3:48 pm Signed by: MD HELTON YUN ROBERT Transcribed Date and Time: 09/09/2021 3:49 [facility] Vera Helton - 09/09/2021 Patient Name: RADHA SANDOVAL Diagnostic Radiology ACCESSION EXAM DATE/TIME PROCEDURE ORDERING PROVIDER [id number] 09/09/2021 10:10 EDT CR Chest PA & LAT MD LOPEZ DARRELL LEROY CPT code 72356 Reason For Exam (CR Chest PA & LAT) dyspnea Report Clinical History: dyspnea Comparison: 04/22/2021 Technique: PA and lateral radiographs were obtained of the chest. Findings: The lungs are clear with no acute infiltrate or effusion. The heart size and mediastinal contours are normal. Pulmonary vascularity is normal and there is no pneumothorax. Status post ORIF of the left shoulder. Impression: Lungs clear with no acute infiltrate or effusion. Report Dictated on Workstation: [id number] --- Final --- Dictating Physician: MD HELTON YUN ROBERT Signed Date and Time: 09/09/2021 3:48 pm Signed by: MD HELTON YUN ROBERT Transcribed Date and Time: 09/09/2021 3:49 [facility] Work Phone: Radiology Study observation (narrative) [employer] Work Phone: XR CHEST (2 VW)Ordered By: Haven Helton on 09-09-2021 [employer] Work Phone: VL PVR Arterial Doppler Lwr w/o Exerciseon 08-25-2021 VL PVR Arterial Doppler Lwr w/o Exercise Patient Name: [facility] [id number] Ultrasound ACCESSION EXAM DATE/TIME PROCEDURE ORDERING PROVIDER [id number] 08/25/2021 10:09 EST VL PVR Arterial Doppler [id number] -SOMMER CHATTERJEE Lwr w/o Exercise CPT code 46686 Reason For Exam (VL PVR Arterial Doppler Lwr w/o Exercise) PVD with ulcer of left leg Report [facility] -- Multilevel Lower Extremity Arterial Evaluation Report Patient Radha Sandoval : 1945 Study 08/25/2021 Name: Eduardo (75yrs) Date: Age: 75 Account: [id number] Gender: F Loc: BP: Ordering Physician: Sommer Chatterjee Finish Opener: Clayton Lr RVT Interpreting Physician: Wicho Morales MD -- Location: [facility] -- Indications: PVD with ulcer. -- Conclusions 1. Right resting YURI is 0.93. This is within the normal range. 2. Left resting YURI is 0.93. This is within the normal range. 3. There appears to be a abnormal toe index involving the right great toe. 4. There appears to be a abnormal toe index involving the left great toe. 5. PVR waveforms of the right leg appear normal at rest. 6. PVR waveforms of the left leg appear normal at rest. -- History: PMH: Patient has a wrapped wound to lateral left leg. Risk factors: Hypertension. Diabetes mellitus. Hyperlipidemia. -- Study data: Lower extremity multilevel physiologic evaluation. Pressure measurement and pulse volume recording. Location: Vascular laboratory. Objective: Diagnostic evaluation. Procedure: A vascular Ultrasound Report evaluation was performed with the patient in the supine position. Images were obtained using a Trupanion vascular ultrasound machine. -- Arterial pressure indices: + + ------+ +--- + +Location +Pressure (REST)*+Index (REST)+Comment + + + ------+ +--- + +R brachial +166 + +--------- ---------+ + + ------+ +--- + +R DP +150 +0.90 + + + + ------+ +--- + +R PT +154 +0.93 + + + + ------+ +--- + +R great toe+81 +0.49 + + + + ------+ +--- + +L brachial + +----- -------+Could not tolerate+ + + ------+ +--- + +L DP +147 +0.89 + + + + ------+ +--- + +L PT +155 +0.93 + + + + ------+ +--- + +L great toe+120 +0.72 + + + + ------+ +--- + Prepared and electronically signed by Wicho Morales MD 08/25/2021 11:49 Final Dictated: 08/25/2021 11:49 am Dictating Physician: WICHO MORALES Signed Date and Time: 08/25/2021 11:49 am Signed by: WICHO MORALES Cardiovascular ACCESSION EXAM DATE/TIME PROCEDURE [id number] 08/25/2021 10:09 EST VL PVR Arterial Doppler Lwr w/o Exercise CPT code 32821 Reason For Exam (VL PVR Arterial Doppler Lwr w/o Exercise) PVD with ulcer of left leg Report [facility] -- Multilevel Lower Extremity Arterial Evaluation Report Patient Radha Sandoval : 1945 Study 08/25/2021 Name: Eduardo (75yrs) Date: Age: 75 Account: [id number] Gender: F Loc: BP: Cardiovascular Report Ordering Physician: Sommer Chatterjee Finish Opener: Clayton Lr RVT Interpreting Physician: Wicho Morales MD -- Location: [facility] -- Indications: PVD with ulcer. -- Conclusions 1. Right resting YURI is 0.93. This is within the normal range. 2. Left resting YURI is 0.93. This is within the normal range. 3. There appears to be a abnormal toe index involving the right great toe. 4. There appears to be a abnormal toe index involving the left great toe. 5. PVR waveforms of the right leg appear normal at rest. 6. PVR wave (more content not included)... Normal [facility] CULT/STAIN - AEROBIC AND KENNA Tyler 08-07-2021 CULT/STAIN - AEROBIC AND ANAEROBIC STAIN GRAM --> Status: F No polymorphonuclear cells/lpf. Rare gram positive cocci in clusters. Rare gram positive cocci in clusters. CULT./ST. BACTERIA --> Status: F Mixed skin amandeep present. No Pseudomonas aeruginosa isolated. No beta-hemolytic streptococcus isolated. No Pseudomonas aeruginosa isolated. No beta-hemolytic streptococcus isolated. CULTURE ANAEROBE --> Status: F No growth of anaerobes at 5 days. 1 Organism Staphylococcus aureus Few 2 Organism Citrobacter freundii Few For serious infections outside of the urinary tract, third generation cephalosporins may not be effective, even if test results indicate the organism is sensitive. 1 Organism Antibiotic Result Intrp Nafcillin/Oxacillin(LAVINIA ) <= 0.25 S Inducible Clindamycin Resistant(LAVINIA)Neg Neg Clindamycin(LAVINIA) 0.25 S Vancomycin(LAVINIA) 1 S Trimeth/Sulfa(LAVINIA) <= 10 S Linezolid(LAVINIA) 2 S Daptomycin(LAVINIA) 0.25 S Gentamicin(LAVINIA) <= 0.5 S Doxycycline(LAVINIA) <= 0.5 S Tigecycline(LAVINIA) <= 0.12 S Rifampin(LAVINIA) <= 0.5 S 2 Organism Antibiotic Result Intrp Ciprofloxacin(LAVINIA) <= 0.25 S Trimeth/Sulfa(LAVINIA) >= 320 R Gentamicin(LAVINIA) <= 1 S Pip/Tazobactam(LAVINIA) <= 4 S Cefazolin(LAVINIA) R Ceftriaxone(LAVINIA) <= 1 S Cefepime(LAVINIA) <= 1 S Aztreonam(LAVINIA) <= 1 S Meropenem(LAVINIA) <= 0.25 S Amikacin(LAVINIA) <= 2 S Amoxicillin/Clavulanic Acid(LAVINIA) R Normal [facility] Comment on above: Performed By: #### C CARINA #### [address] [id number] [id number] Culture, Anaerobic and Aerob icon 08-07-2021 Aerobic Culture Mixed skin amandeep present. No Pseudomonas aeruginosa isolated. No beta-hemolytic streptococcus isolated. Abnormal [facility] Aerobic Culture Staphylococcus aureus Abnormal [facility] Aerobic Culture Few [facility] Aerobic Culture Citrobacter freundii Abnormal [facility] Aerobic Culture Few For serious infections outside of the urinary tract, third generation cephalosporins may not be effective, even if test results indicate the organism is sensitive. [facility] Anaerobic Culture No growth of anaerob es at 5 days. [facility] Gram Stain Result No polymorphonuclear cells/lpf. Rare gram positive cocci in clusters. [facility] Interpretation and review of laboratory results Abnormal [facility] Test Performed by [id number] [place] [address] LAB [facility] CR Chest PA/LATon 04-22-2021 CR Chest PA/LAT Patient Name: RADHA SANDOVAL Diagnostic Radiology ACCESSION EXAM DATE/TIME PROCEDURE ORDERING PROVIDER [id number] 04/22/2021 11:32 EDT CR Chest PA and LAT MD JOHN, SHIV AGRAWAL CPT code 42379 Reason For Exam (CR Chest PA and LAT) cough Report CLINICAL INFORMATION: Coughing. Chest x-ray, PA and lateral: PA and lateral views are compared to the prior AP portable examination of 01/20/2019. There is no abnormality of the mediastinum or cardiac silhouette. There is a prominent lateral left-sided pericardial fat pad. No pleural effusion, vascular congestion, focal consolidation or pneumothorax is seen. IMPRESSION: No evidence of acute cardiopulmonary process or significant interval change. Report Dictated on Final Dictating Physician: MD HARRISON HARLAN Signed Date and Time: 04/22/2021 11:46 am Signed by: MD HARRISON HARLAN Transcribed Date and Time: 04/22/2021 11:47 Normal [facility] MG Breast Tomosynthesis Scr Blon 04-22-2021 MG Breast Tomosynthesis Scr Bl Patient Name: RADHA SANDOVAL Mammography ACCESSION EXAM DATE/TIME PROCEDURE ORDERING PROVIDER [id number] 04/22/2021 11:11 EDT MG Breast Tomosynthesis MD LOPEZ DARRELL BI John AGRAWAL CPT code 08155 09413 Reason For Exam (MG Breast Tomosynthesis BI Scr) screening Report TIME SINCE LAST MAMMOGRAM: Baseline mammogram. REASON FOR EXAM: screening, asymptomatic. PROCEDURE: MG BREAST TOMOSYNTHESIS BL SCR: APRIL 22, 2021 - 2D/3D Procedure 3D views: Bilateral MLO and CC view(s) were taken. 2D views: Bilateral MLO and CC view(s) were taken. No prior studies available for comparison. TISSUE DENSITY: BIRADS B - There are scattered fibroglandular densities. . FINDINGS: No suspicious masses, architectural distortions or suspiciously clustered microcalcifications are identified. There is no evidence of skin thickening or nipple retraction. There were no studies available for comparison. Markings on images: BB's = Nipples; skin lesions Open tazlina = Palpable Line = Scar 2D digital mammography and tomosynthesis imaging were performed and reviewed with CAD. ASSESSMENT: Category 1 Negative RECOMMENDATION: Routine screening mammogram of both breasts in 1 year. . Report Dictated on Cancer Risk Assessment: This risk assessment is based on patient provided information collected in a risk survey taken at the time of this examination. Lifetime breast cancer risk: Average Risk - If greater than or equal to 20%, consider annual mammogram and annual screening Breast MRI or follow Mammography Report up in high risk clinic. A score of Average Risk indicates a score of less than 20%. Is the patient at elevated risk based on the HBOC criteria? No (Hereditary Breast and Ovarian Cancer) - If yes, consider genetic counseling and testing with high risk follow up. Is the patient at elevated risk based on the Smith Syndrome criteria? No - If yes, consider genetic counseling and testing with high risk follow up. Final Signed Date and Time: 04/22/2021 11:29 am Signed by: MD HELTON YUN ROBERT [facility] OT Bone Density DEXA Axial S [facility] 04-22-2021 OT Bone Density DEXA Axial Skeleton Patient Name: RADHA SANDOVAL Bone Density ACCESSION EXAM DATE/TIME PROCEDURE ORDERING PROVIDER [id number] 04/22/2021 10:45 EDT OT Bone Density DEXA MD JOHN, SHIV Axial Skeleton [place] CPT code 06767 Reason For Exam (OT Bone Density DEXA Axial Skeleton) menopause Report DXA BONE DENSITOMETRY: CLINICAL INDICATION: Asymptomatic post-menopausal status COMPARISON: None TECHNIQUE: Quantitative bone mineral densitometry of the hip and lumbar spine was performed with a dual energy x-ray observed absorptiometry device - [employer]! Horizon W. Regions of interest were obtained through the left proximal femur and compared to the normal value of the young adult. Regions of interest were also obtained through the lumbar vertebrae with an average value determined and compared with the young adult. The measured bone density minus the bone density of the young normal reference divided by the reference standard deviation is expressed as the T score. Using the same formula adjusting the reference density and standard deviation for age and race determines the Z score. According to World Health Organization criteria: T-score of -1.0 or higher is normal. T-score between -1.0 and -2.5 is low bone density or osteopenia. T-score of -2.5 or lower is abnormally low, compatible with osteoporosis. T-score of -2.5 or less plus fragility fracture indicates severe osteoporosis. FINDINGS: Hip: Femoral neck Density: 0.644 g/cm2. T-score: -1.8 Z-score: -1.0 Hip: Total hip Density: 0.822 g/cm2. T-score: -1.0 Z-score: 0.9 Comparison from prior examination: N/A Spine: L1-L4 Density 1.032 g/cm2. T-score: -0.1 Z-score: 2.4 Comparison from prior examination: N/A IMPRESSION: Osteopenia of the hip, normal bone density of the spine. Bone Density Report FRACTURE RISK: The estimated 10 year risk for a major osteoporosis-related fracture is 50 % and for a hip fracture is 33 %. (FRAX version 3.08). RECOMMENDATIONS: General recommendations for prevention of bone loss include: 8457-5759 mg calcium intake per day for adults >50yrs, and no history of renal calculi 800-1000 IU of vitamin D3 per day for adults >50yrs, and no history of renal calculi Weight bearing exercise Discontinue smoking Avoid excessive use of caffeine, soft drinks, and alcoholic beverages. In addition, balance training and fall prevention programs can help reduce the risk of fractures. Pharmacologic treatment recommendations: Initiate pharmacologic treatment in patients with: -Hip or vertebral fracture. -In those with T scores spine by DXA -In postmenopausal women and men age 50 or older with low bone mass (T score between -1.0 and -2.5 [osteopenia]) at the femoral neck, total hip, or lumbar spine by DXA and a 10 year hip fracture probability >/= 3% or a 10 year major osteoporosis-related fracture probability >/= 20% based on the [place]-adapted WHO fracture risk model (FRAX). Current FDA-approved pharmacologic options for osteoporosis treatment include bisphosphonates (Fosamax), ibandronate (Boniva), risedronate (Actonel), zoledronic acid (Reclast), estrogens and other hormonal therapies (Evista), parathyroid hormone (Forteo), and denosumab (Prolia). Initiation of pharmacologic therapy should happen only after thorough medical evaluation, discussion of risks and benefits, and with regular monitoring of the therapeutic regimen. FOLLOW-UP RECOMMENDATIONS: Patients with osteoporosis or or at high risk for fracture should have follow-up bone density tests. For Medicare patients, routine testing is allowed every 2 years. Patients who have low bone mass (T score -2.0 to -2.49), who are currently on treatment for low bone mass, or having risk factors for accelerated bone loss (glucocorticoids, aromatase inhibitors, etc.), consider repeat DXA in 1-2 years. Patients with osteopenia and no risk factors may consider follow-up every 3-5 years. REFERENCES: National Osteoporosis Foundation. Clinician's Guide to Prevention and Treatment of Osteoporosis. Osteoporosis International. Mccray, 2014. DXA Scan Screening, Reporting (FRAX Score) and Follow-up. Christa of Knowledge Evidence-Based Summaries. [facility] and Research. 2017 Bone Density Report Report Dictated on Final Dictating Physician: MD DELVALLE LAUREN B Signed Date and Time: 04/23/2021 8:00 am Signed by: MD DELVALLE LAUREN B Transcribed Date and Time: 04/23/2021 8:01 [facility] ECHO Complete 2D W Doppler W ColorOrdered By: Shiv Lopez on 10-07-2020 TRANSTHORACIC ECHOCARDIOGRAM PATIENT: Radha Sandoval STUDY DATE: 10/07/2020 : 1945 AGE: 75 HT/WT: 170.2 cm (67 117.9 kg in) (259.4 lb) GENDER: F BP: 144 / 89 LOCATION: [facility] PATIENT [facility] STATUS: *ORDERING PHYSICIAN: * Shiv Lopez *READING PHYSICIAN: * Stuart Grier, *ASSISTANT HEAD CASHIER: * Lizzette Dejesus MD RDCS, AE -- INDICATIONS: Localized edema (R60.0). -- CONCLUSIONS SUMMARY: 1. Left ventricle: There is mild concentric hypertrophy. Systolic function is hyperdynamic by the biplane method of disks. The estimated ejection fraction is 80%. Doppler parameters are consistent with abnormal left ventricular relaxation (grade 1 diastolic dysfunction). 2. Right ventricle: The cavity size is mildly dilated. Right ventricular systolic pressure is mildly increased. 3. Atrial septum: The septum is thickened. There is a possible atrial septal defect by color doppler. There is no evidence of right to left shunting with injection of agitated saline contrast. 4. Mitral valve: Moderately calcified, posterior annulus. 5. Aortic valve: Trileaflet; moderately calcified leaflets. The mean systolic gradient is 6 mm Hg. The peak systolic gradient is 10 mm Hg. -- STUDY DATA: Complete transthoracic echocardiogram. Procedure: Image quality was poor. Intravenous imaging enhancement (Definity) was administered. Definity lot #: [id number]. M-mode, complete 2D, complete spectral Doppler, and color flow Doppler images were acquired and archived for permanent storage and are available for subsequent review. Study status: Routine. Patient status: Outpatient. -- FINDINGS LEFT VENTRICLE: The cavity size is normal. Wall thickness is mildly increased. There is mild concentric hypertrophy. Systolic function is hyperdynamic by the biplane method of disks. The estimated ejection fraction is 80%. There are no regional wall motion abnormalities. Doppler parameters are consistent with abnormal left ventricular relaxation (grade 1 diastolic dysfunction). RIGHT VENTRICLE: The cavity size is mildly dilated. Systolic function is low normal. Right ventricular systolic pressure is mildly increased. VENTRICULAR SEPTUM: There is no evidence of a ventricular septal defect. LEFT ATRIUM: The atrium is normal in size. RIGHT ATRIUM: The atrium is normal in size. ATRIAL SEPTUM: The septum is thickened. There is a possible atrial septal defect by color doppler. There is no evidence of right to left shunting with injection of agitated saline contrast. MITRAL VALVE: Moderately calcified, posterior annulus. Doppler: Transvalvular velocity is increased more than expected. There is trivial, less than 1+ regurgitation. The valve area (LVOT continuity) is 2.3 cm^2. The mean diastolic gradient is 3 mm Hg. The peak diastolic gradient is 7 mm Hg. AORTIC VALVE: Not well visualized. Trileaflet; moderately calcified leaflets. Doppler: There is no regurgitation. Dimensionless index: 0.97. The valve area by the velocity-time integral method is 3.3 cm^2. The valve area index by the velocity-time integral method is 1.4 cm^2/m^2. The mean systolic gradient is 6 mm Hg. The peak systolic gradient is 10 mm Hg. The peak systolic velocity is 1.6 m/sec. TRICUSPID VALVE: Structurally normal valve. Doppler: There is trivial, less than 1+ regurgitation. PULMONIC VALVE: Structurally normal valve. Doppler: There is trivial, less than 1+ regurgitation. AORTA: The aorta is normal. PULMONARY ARTERY: Main pulmonary artery: Normal. PERICARDIUM: There is no pericardial effusion. SYSTEMIC VEINS: Inferior vena cava: The vessel is normal. The IVC collapses by greater than 50% with inspiration. -- Measurements Value Reference Aortic root ID 3.4 cm <4.4 Aortic root ID, STJ, ED 2.8 cm 2.0 - 3.2 Aortic root ID/bsa, STJ, ED 1.2 cm/m^2 1.1 - 1.9 Value Reference Ascending aorta ID, A-P, S 3.0 cm Ascending aorta ID/bsa, A-P, S 1.2 cm/m^2 Left ventricle Value Reference LV ID, ED 4.2 cm 3.8 - 5.2 LV ID, ES (more content not included)... [facility] Work Phone: [facility], [facility] Incoming Cardiology Results From [facility] - 10/07/2020 3:44 PM EDT TRANSTHORACIC ECHOCARDIOGRAM PATIENT: Radha Sandoval STUDY DATE: 10/07/2020 : 1945 AGE: 75 HT/WT: 170.2 cm (67 117.9 kg in) (259.4 lb) GENDER: F BP: 144 / 89 LOCATION: [facility] PATIENT [facility] STATUS: *ORDERING PHYSICIAN: * Shiv Lopez *READING PHYSICIAN: * Stuart Grier, *ASSISTANT HEAD CASHIER: * Lizzette Dejesus MD RDCS, AE -- INDICATIONS: Localized edema (R60.0). -- CONCLUSIONS SUMMARY: 1. Left ventricle: There is mild concentric hypertrophy. Systolic function is hyperdynamic by the biplane method of disks. The estimated ejection fraction is 80%. Doppler parameters are consistent with abnormal left ventricular relaxation (grade 1 diastolic dysfunction). 2. Right ventricle: The cavity size is mildly dilated. Right ventricular systolic pressure is mildly increased. 3. Atrial septum: The septum is thickened. There is a possible atrial septal defect by color doppler. There is no evidence of right to left shunting with injection of agitated saline contrast. 4. Mitral valve: Moderately calcified, posterior annulus. 5. Aortic valve: Trileaflet; moderately calcified leaflets. The mean systolic gradient is 6 mm Hg. The peak systolic gradient is 10 mm Hg. -- STUDY DATA: Complete transthoracic echocardiogram. Procedure: Image quality was poor. Intravenous imaging enhancement (Definity) was administered. Definity lot #: [id number]. M-mode, complete 2D, complete spectral Doppler, and color flow Doppler images were acquired and archived for permanent storage and are available for subsequent review. Study status: Routine. Patient status: Outpatient. -- FINDINGS LEFT VENTRICLE: The cavity size is normal. Wall thickness is mildly increased. There is mild concentric hypertrophy. Systolic function is hyperdynamic by the biplane method of disks. The estimated ejection fraction is 80%. There are no regional wall motion abnormalities. Doppler parameters are consistent with abnormal left ventricular relaxation (grade 1 diastolic dysfunction). RIGHT VENTRICLE: The cavity size is mildly dilated. Systolic function is low normal. Right ventricular systolic pressure is mildly increased. VENTRICULAR SEPTUM: There is no evidence of a ventricular septal defect. LEFT ATRIUM: The atrium is normal in size. RIGHT ATRIUM: The atrium is normal in size. ATRIAL SEPTUM: The septum is thickened. There is a possible atrial septal defect by color doppler. There is no evidence of right to left shunting with injection of agitated saline contrast. MITRAL VALVE: Moderately calcified, posterior annulus. Doppler: Transvalvular velocity is increased more than expected. There is trivial, less than 1+ regurgitation. The valve area (LVOT continuity) is 2.3 cm^2. The mean diastolic gradient is 3 mm Hg. The peak diastolic gradient is 7 mm Hg. AORTIC VALVE: Not well visualized. Trileaflet; moderately calcified leaflets. Doppler: There is no regurgitation. Dimensionless index: 0.97. The valve area by the velocity-time integral method is 3.3 cm^2. The valve area index by the velocity-time integral method is 1.4 cm^2/m^2. The mean systolic gradient is 6 mm Hg. The peak systolic gradient is 10 mm Hg. The peak systolic velocity is 1.6 m/sec. TRICUSPID VALVE: Structurally normal valve. Doppler: There is trivial, less than 1+ regurgitation. PULMONIC VALVE: Structurally normal valve. Doppler: There is trivial, less than 1+ regurgitation. AORTA: The aorta is normal. PULMONARY ARTERY: Main pulmonary artery: Normal. PERICARDIUM: There is no pericardial effusion. SYSTEMIC VEINS: Inferior vena cava: The vessel is normal. The IVC collapses by greater than 50% with inspiration. -- Measurements Value Reference Aortic root ID 3.4 cm <4.4 Aortic root ID, STJ, ED 2.8 cm 2.0 - 3.2 Aortic root ID/bsa, STJ, ED 1.2 cm/m^2 1.1 - 1.9 Value Reference Ascending aorta ID, A-P, S 3.0 cm Ascending aorta ID/bsa, A-P, S 1.2 cm/m^2 Left ventricle Value Reference LV ID, ED 4.2 cm 3.8 - 5.2 LV ID, ES 2.5 cm 2.2 - 3.5 LV ID/bsa, ED (L) 1.8 cm/m^2 2.3 - 3.1 LV ID/bsa, ES (L) 1.0 cm/m^2 1.3 - 2.1 LV PW thickness, ED (H) 1.3 cm 0.6 - 0.9 LV PW/LV ID ratio, ED 0.31 LV wall mass (H) 204 g 66 - 150 LV wall mass/bsa 85 g/m^2 44 - 88 Stroke volume/bsa, 1-p A2C 36.1 ml/m^2 LV end-diastolic volum (more content not included)... [employer] Phone: Echo Complete w/wo Contrasto n 10-07-2020 Echo Complete w/wo Contrast Patient Name: RADHA SANDOVAL Ultrasound ACCESSION EXAM DATE/TIME PROCEDURE ORDERING PROVIDER [id number] 10/07/2020 14:50 EDT Echo Complete w/wo MD JOHN, SHIV AGRAWAL Reason For Exam (Echo Complete w/wo Contrast) edema Report TRANSTHORACIC ECHOCARDIOGRAM PATIENT: Radha Sandoval STUDY DATE: 10/07/2020 : 1945 AGE: 75 HT/WT: 170.2 cm (67 117.9 kg in) (259.4 lb) GENDER: F BP: 144 / 89 LOCATION: [facility] PATIENT [facility] STATUS: *ORDERING PHYSICIAN: * Shiv Lopez *READING PHYSICIAN: * Stuart Grier, *ASSISTANT HEAD CASHIER: * Lizzette Dejesus MD RDCS, AE -- INDICATIONS: Localized edema (R60.0). -- CONCLUSIONS SUMMARY: 1. Left ventricle: There is mild concentric hypertrophy. Systolic function is hyperdynamic by the biplane method of disks. The estimated ejection fraction is 80%. Doppler parameters are consistent with abnormal left ventricular relaxation (grade 1 diastolic dysfunction). 2. Right ventricle: The cavity size is mildly dilated. Right ventricular systolic pressure is mildly increased. 3. Atrial septum: The septum is thickened. There is a possible atrial septal defect by color doppler. There is no evidence of right to left shunting with injection of agitated saline contrast. 4. Mitral valve: Moderately calcified, posterior annulus. 5. Aortic valve: Trileaflet; moderately calcified leaflets. The mean systolic gradient is 6 mm Hg. The peak systolic gradient is 10 mm Hg. -- STUDY DATA: Complete transthoracic echocardiogram. Procedure: Image quality was poor. Intravenous imaging enhancement (Definity) was administered. Definity lot #: [id number]. M-mode, complete 2D, complete spectral Doppler, and color flow Doppler images were acquired and archived for permanent storage and are available for subsequent review. Study status: Routine. Patient status: Outpatient. Ultrasound Report -- FINDINGS LEFT VENTRICLE: The cavity size is normal. Wall thickness is mildly increased. There is mild concentric hypertrophy. Systolic function is hyperdynamic by the biplane method of disks. The estimated ejection fraction is 80%. There are no regional wall motion abnormalities. Doppler parameters are consistent with abnormal left ventricular relaxation (grade 1 diastolic dysfunction). RIGHT VENTRICLE: The cavity size is mildly dilated. Systolic function is low normal. Right ventricular systolic pressure is mildly increased. VENTRICULAR SEPTUM: There is no evidence of a ventricular septal defect. LEFT ATRIUM: The atrium is normal in size. RIGHT ATRIUM: The atrium is normal in size. ATRIAL SEPTUM: The septum is thickened. There is a possible atrial septal defect by color doppler. There is no evidence of right to left shunting with injection of agitated saline contrast. MITRAL VALVE: Moderately calcified, posterior annulus. Doppler: Transvalvular velocity is increased more than expected. There is trivial, less than 1+ regurgitation. The valve area (LVOT continuity) is 2.3 cm^2. The mean diastolic gradient is 3 mm Hg. The peak diastolic gradient is 7 mm Hg. AORTIC VALVE: Not well visualized. Trileaflet; moderately calcified leaflets. Doppler: There is no regurgitation. Dimensionless index: 0.97. The valve area by the velocity-time integral method is 3.3 cm^2. The valve area index by the velocity-time integral method is 1.4 cm^2/m^2. The mean systolic gradient is 6 mm Hg. The peak systolic gradient is 10 mm Hg. The peak systolic velocity is 1.6 m/sec. TRICUSPID VALVE: Structurally normal valve. Doppler: There is trivial, less than 1+ regurgitation. PULMONIC VALVE: Structurally normal valve. Doppler: There is trivial, less than 1+ regurgitation. AORTA: The aorta is normal. PULMONARY ARTERY: Main pulmonary artery: Normal. PERICARDIUM: There is no pericardial effusion. SYSTEMIC VEINS: Inferior vena cava: The vessel is normal. The IVC collapses by greater than 50% with inspiration. -- Measurements Value Reference Aortic root ID 3.4 cm <4.4 Aortic root ID, STJ, ED 2.8 cm 2.0 - 3.2 Aortic root ID/bsa, STJ, ED 1.2 cm/m^2 1.1 - 1.9 Value Reference Ascending aorta ID, A-P, S 3.0 cm Ascending aorta ID/bsa, A-P, S 1.2 cm/m^2 Left ventricle Value Reference LV ID, ED 4.2 cm 3.8 - 5.2 LV ID, ES 2.5 cm 2.2 - 3.5 LV ID/bsa, ED (L) 1.8 cm/m^2 2.3 - 3.1 LV ID/bsa, ES (L) 1.0 cm/m^2 1.3 - 2.1 LV PW thickness, ED (H) 1.3 cm 0.6 - 0.9 LV PW/LV ID ratio, ED 0.31 (more content not included)... Normal [facility] Basic Metabolic Panelon 01-17 Anion gap [Moles/Vol] 10 mmol/L [place], [place] Calcium [Mass/Vol] 8.7 mg/dL 8.4 - 10. 4 mg/dL [place], [place] Chloride [Moles/Vol] 101 mmol/L 98 - 10 7 mmol/L [place] CO2 [Moles/Vol] 27 mmol/L 22 - 30 mmol/L [place] Creatinine [Mass/Vol] 1.13 mg/dL 0.52 - 1.25 mg/dL [place] EGFR IF NonAfrican Thai 46.9 mL/min >60 [place], [place] Comment on above: Source- MDRD equatio n with creatinine calibration to IDMS(NKDEP) eGFR not recommended for drug dose adjustment GFR/1.73 sq M predicted among blacks MDRD (S/P/Bld) [Vol rate/Area] 56.8 mL/min/{1.73_m2} >60 [place], [place] Glucose [Mass/Vol] 139 mg/dL High 70 - 100 mg/dL [place] Interpretation and review of laboratory results Abnormal [place] Potassium [Moles/Vol] 4.3 mmol/L 3.5 - 5.1 mmol/L [place] Sodium [Moles/Vol] 137 mmol/L 135 - 145 mmol/L [place] Urea nitrogen [Mass/Vol] 18 mg/dL 7 - 20 mg/dL [place] CBCon 02-01-2019 Erythrocyte distribution width (RBC) [Ratio] 13.4 % 11.5 - 14.5 % [place] Hematocrit (Bld) [Volume fraction] 35.1 % 35 - 47 % [place] Hemoglobin (Bld) [Mass/Vol] 11.8 g/dL 11.7 - 16 g/dL [place] MCH (RBC) [Entitic mass] 30.2 pg 26 - 34 pg [place] MCHC (RBC) [Mass/Vol] 33.8 % 32 - 36 % [place], [place] MCV (RBC) [Entitic vol] 89.4 fL 79 - 98 fL [place], [place] Platelet mean volume (Bld) [Entitic vol] 7.6 fL 7.4 - 10.4 fL [place] Platelets (Bld) [#/Vol] 419 10*3/uL 140 - 440 10*3/uL [place] RBC (Bld) [#/Vol] 3.92 10*6/uL 3.8 - 5.2 10*6/uL [place] WBC (Bld) [#/Vol] 9.4 10*3/uL 3.6 - 10.7 10*3/uL [place] CT CERVICAL SPINE WO LAURA Harmon 02-01-2019 [facility], [facility] Incoming Radiology Results From [facility] - 02/01/2019 7:24 PM EDT Patient Name: RADHA SANDOVAL ---CT--- Exam Date/Time 02/01/2019 18:57:[address] Spine Cervical w/o Contrast Ordering Physician MD CR, DUNCAN Accession Number [id number] CPT4 Codes 22810 () Reason For Exam NECK PAIN FOLLOWING TRAUMA Report EXAMINATION: CT of the Cervical Spine without Contrast. COMPARISON: None. REASON FOR STUDY: Neck pain after trauma. TECHNIQUE: Contiguous axial 1 mm images were extended from the skull base through the upper thorax. Multiplanar and 3D images were concurrently rendered and reviewed on a 3-D workstation to enhance visualization of the vertebrae. FINDINGS: Vertebral bodies, pedicles and posterior arches appear intact. There is diffuse groundglass sclerosis of C2. Endplate osteophytes are observed at C5-C6. No paravertebral abnormality is observed. Vertebral alignment is anatomic. The C5-C6 disc space is severely narrowed. The spinal canal and neural foramina are patent. Prevertebral soft tissues appear normal. CONCLUSIONS: 1. No evidence of acute bone injury or malalignment. 2. Severe degenerative disc disease at C5-C6. 3. 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 Report Dictated on --- Final --- Dictated: 02/01/2019 7:12 pm Dictating Physician: MD FRANK B NELSON Signed Date and Time: 02/01/2019 7:23 pm Signed by: MD FRANK B NELSON Transcribed Date and Time: 02/01/2019 7:12 [place], [place] Patient Name: RADHA SANDOVAL ---CT--- Exam Date/Time 02/01/2019 18:57:[address] Spine Cervical w/o Contrast Ordering Physician MD HANKINS ALEKSANDAR Accession Number [id number] CPT4 Codes 95003 () Reason For Exam NECK PAIN FOLLOWING TRAUMA Report EXAMINATION: CT of the Cervical Spine without Contrast. COMPARISON: None. REASON FOR STUDY: Neck pain after trauma. TECHNIQUE: Contiguous axial 1 mm images were extended from the skull base through the upper thorax. Multiplanar and 3D images were concurrently rendered and reviewed on a 3-D workstation to enhance visualization of the vertebrae. FINDINGS: Vertebral bodies, pedicles and posterior arches appear intact. There is diffuse groundglass sclerosis of C2. Endplate osteophytes are observed at C5-C6. No paravertebral abnormality is observed. Vertebral alignment is anatomic. The C5-C6 disc space is severely narrowed. The spinal canal and neural foramina are patent. Prevertebral soft tissues appear normal. CONCLUSIONS: 1. No evidence of acute bone injury or malalignment. 2. Severe degenerative disc disease at C5-C6. 3. 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 Report Dictated on --- Final --- Dictated: 02/01/2019 7:12 pm Dictating Physician: MD FRANK B NELSON Signed Date and Time: 02/01/2019 7:23 pm Signed by: MD FRANK B NELSON Transcribed Date and Time: 02/01/2019 7:12 [place], [place] CT HEAD WO CONTRASTon 2018 [facility], [facility] Incoming Radiology Results From [facility] - 02/01/2019 7:40 PM EDT Patient Name: RADHA SANDOVAL ---CT--- Exam Date/Time 02/01/2019 18:57:[address] Head or Brain w/o Contrast Ordering Physician MD HANKINS ALEKSANDAR Accession Number [id number] CPT4 Codes 45401 () Reason For Exam HEAD INJURY MILD OR MODERATE ACUTE, NO NEUROLOGICAL DEFICIT Report CT BRAIN WITHOUT CONTRAST CLINICAL INDICATION: HEAD INJURY MILD OR MODERATE ACUTE, NO NEUROLOGICAL DEFICIT TECHNIQUE: Noncontrast CT scan of the brain. Multiplanar reformations. COMPARISON: None FINDINGS: Brain volume is normal for age. Patchy low density in the periventricular and subcortical white matter is nonspecific, but may relate to chronic small vessel ischemic change. No hemorrhage, mass effect, or midline shift. No hydrocephalus. No pathologic extra-axial fluid collection. Normal basal cisterns. No evidence of acute cortical infarct. Left forehead laceration. Multiple opacified mastoid air cells bilaterally. Mucosal thickening throughout the maxillary sinuses, ethmoid air cells, and sphenoid sinuses, with some fluid in the left maxillary sinus and bilateral sphenoid sinus. IMPRESSION: 1. No acute intracranial finding. Suspect chronic small vessel ischemic changes. 2. Bilateral mastoiditis. Sinusitis. Report Dictated on --- Final --- Dictated: 02/01/2019 7:35 pm Dictating Physician: MD YOUNG JOHN R Signed Date and Time: 02/01/2019 7:38 pm Signed by: MD YOUNG JOHN R Transcribed Date and Time: 02/01/2019 7:35 [place], [place] Patient Name: RADHA SANDOVAL ---CT--- Exam Date/Time 02/01/2019 18:57:[address] Head or Brain w/o Contrast Ordering Physician MD HANKINS ALEKSANDAR Accession Number [id number] CPT4 Codes 03967 () Reason For Exam HEAD INJURY MILD OR MODERATE ACUTE, NO NEUROLOGICAL DEFICIT Report CT BRAIN WITHOUT CONTRAST CLINICAL INDICATION: HEAD INJURY MILD OR MODERATE ACUTE, NO NEUROLOGICAL DEFICIT TECHNIQUE: Noncontrast CT scan of the brain. Multiplanar reformations. COMPARISON: None FINDINGS: Brain volume is normal for age. Patchy low density in the periventricular and subcortical white matter is nonspecific, but may relate to chronic small vessel ischemic change. No hemorrhage, mass effect, or midline shift. No hydrocephalus. No pathologic extra-axial fluid collection. Normal basal cisterns. No evidence of acute cortical infarct. Left forehead laceration. Multiple opacified mastoid air cells bilaterally. Mucosal thickening throughout the maxillary sinuses, ethmoid air cells, and sphenoid sinuses, with some fluid in the left maxillary sinus and bilateral sphenoid sinus. IMPRESSION: 1. No acute intracranial finding. Suspect chronic small vessel ischemic changes. 2. Bilateral mastoiditis. Sinusitis. Report Dictated on --- Final --- Dictated: 02/01/2019 7:35 pm Dictating Physician: MD YOUNG JOHN R Signed Date and Time: 02/01/2019 7:38 pm Signed by: MD YOUNG JOHN R Transcribed Date and Time: 02/01/2019 7:35 [place], [place] Ethanolon 02-01-2019 Ethanol Lvl <0.010 0 - 0.01 g/dL [place], [place] Comment on above: NOTE: This result is for medical treatment only. Analysis performed using non-forensic procedures. Otheron 02-01-2019 Test Performed by [facility], [address] [place] [id number] [place] [address] Protime/INR & PTTon 02-02-20 19 aPTT Coag (Bld) [Time] 23.9 s 20 - 30.5 s [place], [place] Comment on above: NOTE: The therapeuti c time for Heparin anticoagulation, based on Xa activity inhibition, is an APTT of 46-80 seconds. INR Coag (PPP) [Relative time] 0.9 {INR} [place], [place] Comment on above: Recommended Anticoag ulant Therapy: SEE BELOW ----- INR of 2.0 - 3.0 : - Prophylaxis of Venous Thrombosis (high-risk surgery) - Treatment of Venous Thrombosis - Treatment of Pulmonary Embolism (Includes tissue heart valves, Acute Myocardial Infarction to prevent systemic embolism, Valvular Heart Disease, and Atrial Fibrillation) ----- INR of 2.5 - 3.5 : - Mechanical Prosthetic Valves (high risk) - If oral anticoagulant therapy is used to prevent Myocardial Infarction PT Coag (PPP) [Time] 9.9 s 9 - 12 s [place], [place] Comment on above: . TYPE AND SCREENon 02-01-2019 Sodium [Moles/Vol] Positive [place], [place] Comment on above: Test Performed by [facility], [address] [place] [address] Sodium [Moles/Vol] O [place], [place] Sodium [Moles/Vol] Negative [place], [place] Comment on above: Test Performed by [facility], [address] [place] [address] XR CHEST PORTABLEon 02-02-20 19 [facility], [facility] Incoming Radiology Results From [facility] - 02/01/2019 7:15 PM EDT Patient Name: RADHA SANDOVAL ---Diagnostic Radiology--- Exam Date/Time 02/01/2019 19:11:56 EDT Exam CR Chest Portable Ordering Physician MD CR, DUNCAN Accession Number [id number] CPT4 Codes 12200 () Reason For Exam TRAUMA, FALL Report SINGLE FRONTAL VIEW OF THE CHEST CLINICAL INDICATION: TRAUMA, FALL, injury TECHNIQUE: Single frontal view of the chest COMPARISON: None FINDINGS: Lung apices are not included. Lungs otherwise clear. Heart size normal. No pleural effusion or pneumothorax. An electronic device projects over the right cardiophrenic angle. IMPRESSION: 1. No acute finding. Report Dictated on --- Final --- Dictated: 02/01/2019 7:13 pm Dictating Physician: MD YOUNG JOHN R Signed Date and Time: 02/01/2019 7:14 pm Signed by: MD YOUNG JOHN R Transcribed Date and Time: 02/01/2019 7:13 [place], [place] Patient Name: RADHA SANDOVAL ---Diagnostic Radiology--- Exam Date/Time 02/01/2019 19:11:56 EDT Exam CR Chest Portable Ordering Physician MD HANKINS ALEKSANDAR Accession Number [id number] CPT4 Codes 01518 () Reason For Exam TRAUMA, FALL Report SINGLE FRONTAL VIEW OF THE CHEST CLINICAL INDICATION: TRAUMA, FALL, injury TECHNIQUE: Single frontal view of the chest COMPARISON: None FINDINGS: Lung apices are not included. Lungs otherwise clear. Heart size normal. No pleural effusion or pneumothorax. An electronic device projects over the right cardiophrenic angle. IMPRESSION: 1. No acute finding. Report Dictated on --- Final --- Dictated: 02/01/2019 7:13 pm Dictating Physician: MD YOUNG JOHN R Signed Date and Time: 02/01/2019 7:14 pm Signed by: MD YOUNG JOHN R Transcribed Date and Time: 02/01/2019 7:13 [facility], [place] XR PELVIS (1-2 VW)on Patient Name: RADHA SANDOVAL ---Diagnostic Radiology--- Exam Date/Time 02/01/2019 19:11:56 EDT Exam CR Pelvis 1 or 2 Views Ordering Physician MD HANKINS ALEKSANDAR Accession Number [id number] CPT4 Codes 18668 () Reason For Exam TRAUMA, FALL Report PELVIS SINGLE VIEW CLINICAL INDICATION: TRAUMA, FALL, injury TECHNIQUE: AP view of the pelvis. COMPARISON: None FINDINGS: The following areas were incompletely visualized on this portable film: Lateral aspect of the left greater trochanter. No fracture or dislocation seen. Joint spaces are maintained. IMPRESSION: 1. No acute finding. Report Dictated on --- Final --- Dictated: 02/01/2019 7:12 pm Dictating Physician: MD YOUNG JOHN R Signed Date and Time: 02/01/2019 7:13 pm Signed by: MD YOUNG JOHN R Transcribed Date and Time: 02/01/2019 7:12 [facility] [place] [facility], [facility] Incoming Radiology Results From [facility] - 02/01/2019 7:14 PM EDT Patient Name: RADHA SANDOVAL ---Diagnostic Radiology--- Exam Date/Time 02/01/2019 19:11:56 EDT Exam CR Pelvis 1 or 2 Views Ordering Physician MD CR, DUNCAN Accession Number [id number] CPT4 Codes 00129 () Reason For Exam TRAUMA, FALL Report PELVIS SINGLE VIEW CLINICAL INDICATION: TRAUMA, FALL, injury TECHNIQUE: AP view of the pelvis. COMPARISON: None FINDINGS: The following areas were incompletely visualized on this portable film: Lateral aspect of the left greater trochanter. No fracture or dislocation seen. Joint spaces are maintained. IMPRESSION: 1. No acute finding. Report Dictated on --- Final --- Dictated: 02/01/2019 7:12 pm Dictating Physician: MD YOUNG JOHN R Signed Date and Time: 02/01/2019 7:13 pm Signed by: MD YOUNG JOHN R Transcribed Date and Time: 02/01/2019 7:12 [place], [place] Vital Signs Date Time Vital Sign Value [facility] 03-18-2023 11:02-0400 Body temperature 98.7 [degF] [facility] 03-18-2023 11:02-0400 Diastolic blood pressure 50 mm[Hg] [facility] 03-18-2023 11:02-0400 Heart rate 74 /min [facility] 03-18-2023 11:02-0400 Respiratory rate 18 /min [facility] 03-18-2023 11:02-0400 SaO2% (BldA) [Mass fraction] 96 % [facility] 03-18-2023 11:02-0400 Systolic blood pressure 142 mm[Hg] [facility] 03-15-2023 14:20-0400 Body height 170.18 cm [facility] 03-15-2023 14:20-0400 Body weight 113.21 kg [facility] 03-14-2023 09:34-0400 Body mass index (BMI) [Ratio] 39.1 kg/m2 [facility] 03-03-2023 07:40-0400 Body temperature 98.1 [degF] Tasneem Whaley MD Work Phone: [facility] 03-03-2023 07:40-0400 Diastolic blood pressure 81 mm[Hg] Tasneem Whaley MD Work Phone: [facility] 03-03-2023 07:40-0400 Heart rate 93 /min Tasneem Whaley MD Work Phone: [facility] 03-03-2023 07:40-0400 Respiratory rate 16 /min Tasneem Whaley MD Work Phone: [facility] 03-03-2023 07:40-0400 SaO2% (BldA) [Mass fraction] 94 % Tasneem Whaley MD Work Phone: [facility] 03-03-2023 07:40-0400 Systolic blood pressure 154 mm[Hg] Tasneem Whaley MD Work Phone: [facility] 02-27-2023 14:44-0400 Body mass index (BMI) [Ratio] 36.65 kg/m2 Katia Bridenthal SOCIAL STAFF WORKER - PANTOGRAPH I ENGRAVER Work Phone: [facility] 02-27-2023 14:44-0400 Body temperature 99.1 [degF] Katia Bridenthal SOCIAL STAFF WORKER - PANTOGRAPH I ENGRAVER Work Phone: [facility] 02-27-2023 14:44-0400 Body weight 106.14 kg Katia Bridenthal SOCIAL STAFF WORKER - PANTOGRAPH I ENGRAVER Work Phone: [facility] 02-27-2023 14:44-0400 Diastolic blood pressure 72 mm[Hg] Katia Bridenthal SOCIAL STAFF WORKER - PANTOGRAPH I ENGRAVER Work Phone: [facility] 02-27-2023 14:44-0400 Heart rate 93 /min Katia Bridenthal SOCIAL STAFF WORKER - PANTOGRAPH I ENGRAVER Work Phone: [facility] 02-27-2023 14:44-0400 Respiratory rate 20 /min Katia Bridenthal SOCIAL STAFF WORKER - PANTOGRAPH I ENGRAVER Work Phone: [facility] 02-27-2023 14:44-0400 SaO2% (BldA) [Mass fraction] 92 % Katia Bridenthal SOCIAL STAFF WORKER - PANTOGRAPH I ENGRAVER Work Phone: [facility] 02-27-2023 14:44-0400 Systolic blood pressure 136 mm[Hg] Katia Bridenthal SOCIAL STAFF WORKER - PANTOGRAPH I ENGRAVER Work Phone: [facility] 02-15-2023 13:07-0400 Body height 170.2 cm Lenard Magallanes DO Work Phone: [facility] 02-15-2023 13:07-0400 Body mass index (BMI) [Ratio] 35.71 kg/m2 Lenard Magallanes DO Work Phone: [facility] 02-15-2023 13:07-0400 Body temperature 98.6 [degF] Lenard Magallanes DO Work Phone: [facility] 02-15-2023 13:07-0400 Body weight 103.42 kg Lenard Magallanes DO Work Phone: [facility] 02-15-2023 13:07-0400 Diastolic blood pressure 76 mm[Hg] Lenard Magallanes DO Work Phone: [facility] 02-15-2023 13:07-0400 Heart rate 75 /min Lenard Magallanes DO Work Phone: [facility] 02-15-2023 13:07-0400 Respiratory rate 20 /min Lenard Magallanes DO Work Phone: [facility] 02-15-2023 13:07-0400 Systolic blood pressure 141 mm[Hg] Lenard Magallanes DO Work Phone: [facility] 02-07-2023 11:18-0400 Diastolic blood pressure 72 mm[Hg] Katia Bridenthal SOCIAL STAFF WORKER - PANTOGRAPH I ENGRAVER Work Phone: [facility] 02-07-2023 11:18-0400 Systolic blood pressure 146 mm[Hg] Katia Bridenthal SOCIAL STAFF WORKER - PANTOGRAPH I ENGRAVER Work Phone: [facility] 02-07-2023 10:39-0400 Body mass index (BMI) [Ratio] 40.34 kg/m2 Katia Bridenthal SOCIAL STAFF WORKER - PANTOGRAPH I ENGRAVER Work Phone: [facility] 02-07-2023 10:39-0400 Body temperature 97.3 [degF] Katia Bridenthal SOCIAL STAFF WORKER - PANTOGRAPH I ENGRAVER Work Phone: [facility] 02-07-2023 10:39-0400 Body weight 109.95 kg Katia Bridenthal SOCIAL STAFF WORKER - PANTOGRAPH I ENGRAVER Work Phone: [facility] 02-07-2023 10:39-0400 Heart rate 88 /min Katia Bridenthal SOCIAL STAFF WORKER - PANTOGRAPH I ENGRAVER Work Phone: [facility] 02-07-2023 10:39-0400 Respiratory rate 20 /min Katia Bridenthal SOCIAL STAFF WORKER - PANTOGRAPH I ENGRAVER Work Phone: [facility] 02-07-2023 10:39-0400 SaO2% (BldA) [Mass fraction] 96 % Katia Gregenthal SOCIAL STAFF WORKER - PANTOGRAPH I ENGRAVER Work Phone: [facility] 12-07-2022 10:03-0400 Diastolic blood pressure 80 mm[Hg] Anusha Velarde MD Work Phone: [facility] 12-07-2022 10:03-0400 Heart rate 72 /min Anusha Velarde MD Work Phone: [facility] 12-07-2022 10:03-0400 Respiratory rate 18 /min Anusha Velarde MD Work Phone: [facility] 12-07-2022 10:03-0400 SaO2% (BldA) [Mass fraction] 96 % Aunsha Velarde MD Work Phone: [facility] 12-07-2022 10:03-0400 Systolic blood pressure 162 mm[Hg] Anusha Velarde MD Work Phone: [facility] 12-07-2022 09:50-0400 Body temperature 97.2 [degF] Anusha Velarde MD Work Phone: [facility] 12-07-2022 08:49-0400 Body height 165.1 cm Anusha Velarde MD Work Phone: [facility] 12-07-2022 08:49-0400 Body mass index (BMI) [Ratio] 41.6 kg/m2 Anusha Velarde MD Work Phone: [facility] 12-07-2022 08:49-0400 Body weight 113.4 kg Anusha Velarde MD Work Phone: [facility] 06-30-2022 08:47-0500 Diastolic blood pressure 62 mm[Hg] Shiv Lopez MD Work Phone: [facility] 06-30-2022 08:47-0500 Heart rate 80 /min Shiv Lopez MD Work Phone: [facility] 06-30-2022 08:47-0500 Systolic blood pressure 125 mm[Hg] Shiv Lopez MD Work Phone: [facility] 06-30-2022 08:16-0500 Body height 165.7 cm Shiv Lopez MD Work Phone: [facility] 06-30-2022 08:16-0500 Body mass index (BMI) [Ratio] 39.96 kg/m2 Shiv Lopez MD Work Phone: [facility] 06-30-2022 08:16-0500 Body weight 109.77 kg Shiv Lopez MD Work Phone: [facility] Encounters Encounter Date Encounter Type Care Provider Facility Start: 11-14-2024 ambulatory Melissa THOMPSON Facili ty:[facility] Start: 11-08-2024 ambulatory Melissa THOMPSON Facili ty:[facility] Start: 10-17-2024 End: 10-17-2024 ambulatory Melissa Vallecilloa JAY Facility:[facility] Start: 10-03-2024 End: 10-03-[address] Shiv Lopez MD Work Phone: [facility] Work Phone: Start: 10-03-2024 End: 10-03-[address] Melissa Reed MD -[facility] Work Phone: Start: 10-03-2024 End: 10-03-2024 ambulatory Melissa Genenaz THOMPSON Facility:[facility] Start: 09-23-2024 ambulatory Melissa Genenaz THOMPSON Facili ty:[facility] Start: 09-23-[address] Melissa Reed MD -[facility] Work Phone: Start: 09-19-2024 End: 09-19-[address] Shiv Lopez MD Work Phone: [facility] Work Phone: Start: 09-19-2024 End: 09-19-[address] Melissa Reed MD -[facility] Work Phone: Start: 09-19-[address] Melissa Reed MD -[facility] Work Phone: Start: 09-19-2024 End: 09-19-2024 ambulatory Melissabridgette Vallecilloa Facility:[facility] Start: 09-05-2024 End: 09-05-[address] Shiv Lopez MD Work Phone: [facility] Work Phone: Start: 09-05-2024 End: 09-05-[address] Melissa Reed MD -[facility] Work Phone: Start: 09-05-[address] Melissa Reed MD -[facility] Work Phone: Start: 09-05-2024 End: 09-05-2024 ambulatory [facility] Facility:[facility] Start: 08-22-2024 End: 08-22-[address] Shiv Lopez MD Work Phone: [facility] Work Phone: Start: 08-22-2024 End: 08-22-[address] Melissa Reed MD -[facility] Work Phone: Start: 08-22-2024 End: 08-22-2024 ambulatory Melissa Genenaz THOMPSON Facility:[facility] Start: 08-08-2024 ambulatory [facility] Facility:[facility] Start: 08-08-[address] Melissa Reed MD -[facility] Start: 08-06-2024 ambulatory Melissa Genenaz Facility:[facility] Start: 08-06-[address] Melissa Reed MD -[facility] Work Phone: Start: 07-31-2024 End: 07-31-[address] Gypsy Argueta MD -Radiology, [facility] Work Phone: Start: 07-31-2024 End: 07-31-2024 ambulatory [facility] Facility:[facility] Start: 07-25-2024 ambulatory [facility] Facility :[facility] Start: 07-25-[address] Melissa Reed MD -[facility] Work Phone: Start: 07-11-2024 ambulatory [facility] Facility :[facility] Start: 07-11-[address] Melissa Reed MD -[facility] Work Phone: Start: 06-27-2024 End: 06-27-[address] Melissa Reed MD -[facility] Work Phone: Start: 06-27-2024 End: 06-27-2024 ambulatory [facility] Facility:[facility] Start: 06-13-2024 ambulatory [facility] Facility :[facility] Start: 06-13-[address] Melissa Reed MD -[facility] Work Phone: Start: 05-29-2024 End: 05-29-[address] Melissa Reed MD -[facility] Work Phone: Start: 05-29-2024 End: 05-29-2024 ambulatory Shiv John Facility:[facility] Start: 05-15-2024 End: 05-15-2024 ambulatory Shiv John Facility:[facility] Start: 05-01-2024 End: 05-01-2024 ambulatory Shiv John Facility:[facility] Start: 04-17-2024 End: 04-17-2024 ambulatory Shiv John Facility:[facility] Start: 04-04-2024 End: 04-04-2024 ambulatory Shiv John Facility:[facility] Start: 04-01-2024 End: 04-01-2024 ambulatory Shiv John Facility:[facility] Start: 03-20-2024 End: 03-20-2024 ambulatory Shiv John Facility:[facility] Start: 03-06-2024 End: 03-06-2024 ambulatory Shiv John Facility:[facility] Start: 02-20-2024 ambulatory Shiv John Facility :[facility] Start: 02-05-2024 End: 02-05-2024 ambulatory Shiv John Facility:[facility] Start: 01-24-2024 End: 01-24-2024 ambulatory Sihv John Facility:[facility] Start: 01-22-2024 ambulatory Melissa Bar ty:[facility] Start: 01-06-2024 ambulatory [facility] Facility:[facility] Start: 01-05-2024 ambulatory Shiv John Facility :[facility] Start: 12-29-2023 End: 12-29-2023 ambulatory Felicia Garcia DRILLER OPERATOR [facility] Start: 12-22-2023 ambulatory Shiv John Facility :[facility] Start: 12-08-2023 ambulatory Shiv John Facility :[facility] Start: 12-04-2023 End: 12-04-2023 ambulatory Shiv John Facility:[facility] Start: 09-29-2023 End: 09-29-2023 ambulatory [facility] Work Phone: Start: 09-29-2023 End: 09-29-2023 Departed Referred [facility] Work Phone: Start: 09-14-2023 End: 09-14-2023 ambulatory [facility] Work Phone: Start: 09-14-2023 End: 09-14-2023 Departed Referred [facility] Work Phone: Start: 08-31-2023 End: 08-31-2023 ambulatory [facility] Work Phone: Start: 08-31-2023 End: 08-31-2023 Departed Referred [facility] Work Phone: Start: 08-17-2023 End: 08-17-2023 ambulatory [facility] Work Phone: Start: 08-17-2023 End: 08-17-2023 Departed Referred [facility] Work Phone: Start: 08-14-2023 End: 08-14-2023 Departed [facility]erred [facility] Work Phone: Start: 07-31-2023 End: 07-31-2023 Departed [facility] Work Phone: Start: 07-17-2023 End: 07-17-2023 Departed [facility] Work Phone: Start: 07-03-2023 End: 07-03-2023 Departed [facility] Work Phone: Start: 07-03-2023 Registered Referred [facility] [place] [place] Work Phone: Start: 06-23-2023 End: 06-23-2023 ambulatory [facility] Work Phone: Start: 06-23-2023 End: 06-23-2023 Depart[address] [facility] Start: 06-20-2023 End: 06-20-2023 ambulatory [facility] Work Phone: Start: 06-20-2023 End: 06-20-2023 Departed [facility]erred [facility] Work Phone: Start: 06-20-2023 Registered Referred [facility] [place] [place] Work Phone: Start: 05-10-2023 End: 05-10-2023 ambulatory [facility] Work Phone: Start: 05-10-2023 End: 05-10-2023 Departed Referred [facility] Start: 05-10-2023 Registered Referred [facility] Start: 05-01-2023 End: 05-01-2023 ambulatory [facility] Work Phone: Start: 05-01-2023 End: 05-01-2023 Departed Referred [facility] Start: 04-04-2023 End: 04-04-2023 ambulatory [facility] Work Phone: Start: 04-04-2023 End: 04-04-2023 Departed Referred [facility] Start: 03-20-2023 End: 03-20-2023 Departed [address]erred [facility] Start: 03-03-2023 End: 03-18-2023 Evaluation and management of inpatient [facility] Start: 02-28-2023 End: 03-03-2023 ambulatory Imelda Mann RN [facility] Start: 02-28-2023 Patient encounter procedure Imelda Mann RN [facility] Start: 02-28-2023 End: 03-03-2023 Emergency department patient visit Tasneem Whaley MD Work Phone: [facility] Comment on above: LING (acute kidney in jury) (CMS/HCC) (HCC) (Primary Dx); Pyelonephritis; Polypharmacy; Insomnia, unspecified type; Pressure ulcer of right buttock, stage 3 (HCC) Start: 02-27-2023 End: 02-27-2023 ambulatory [facility] Start: 02-27-2023 End: 02-27-2023 Office outpatient visit 25 minutes Katiajareth Granados SOCIAL STAFF WORKER - PANTOGRAPH I ENGRAVER Work Phone: [facility] Comment on above: Diabetes mellitus du e to underlying condition with stage 3 chronic kidney disease, with long-term current use of insulin, unspecified whether stage 3a or 3b CKD ([facility]) (Primary Dx); Urinary tract infection symptoms; Primary hypertension; Hypokalemia; Acquired hypothyroidism; History of GI bleed; Acute cystitis with hematuria; Wound of right buttock, subsequent encounter; Chronic renal impairment, stage 3b ([facility]); Diarrhea, unspecified type Start: 02-23-2023 ambulatory Nan Bush RN [facility] Start: 02-23-2023 Patient encounter procedure Nan Bush RN [facility] Start: 02-15-2023 End: 02-15-2023 Subsequent hospital visit by physician Lenard Magallanes DO Work Phone: [facility] Comment on above: Arrived Start: 02-15-2023 End: 02-15-2023 ambulatory LENARD MAGALLANES [facility] Start: 02-07-2023 End: 02-07-2023 Office outpatient visit 15 minutes Katia Granados SOCIAL STAFF WORKER - PANTOGRAPH I ENGRAVER Work Phone: [facility] Comment on above: Wound of right butto ck, subsequent encounter (Primary Dx); Chronic left shoulder pain Start: 02-07-2023 End: 02-07-2023 ambulatory [facility] Start: 01-25-2023 [facility] Start: 01-25-2023 Patient encounter procedure Colette Poole RN [facility] Start: 01-12-2023 Refill Katia ley SOCIAL STAFF WORKER - PANTOGRAPH I ENGRAVER Work Phone: [facility] Comment on above: Vitamin D deficiency ; Acquired hypothyroidism; Chronic left shoulder pain; Restless legs syndrome (RLS) Start: 12-08-2022 Refill Katia Kylah ley SOCIAL STAFF WORKER - PANTOGRAPH I ENGRAVER Work Phone: [facility] Comment on above: Hyperlipidemia with target LDL less than 70; Acquired hypothyroidism; Chronic left shoulder pain Start: 12-05-2022 ambulatory [facility] Start: 12-05-2022 Patient encounter procedure Sruthi Burns RN [facility] Start: 12-05-2022 End: 12-07-2022 Emergency department patient visit Anusha Velarde MD Work Phone: [facility] Comment on above: Acute lower GI bleed ing (Primary Dx); Rectal bleeding Start: 10-05-2022 Telephone encounter Shiv James MD Work Phone: [facility] Comment on above: Results Start: 08-12-2022 Refill Shiv Lopez MD Work Phone: [facility] Communication Start: 07-26-2022 Refill Shiv Lopez MD Work Phone: [facility] Start: 07-18-2022 Refill Katia Kylah ley SOCIAL STAFF WORKER - PANTOGRAPH I ENGRAVER Work Phone: [facility] Comment on above: Vitamin D deficiency Start: 07-11-2022 Refill Shiv Lopez MD Work Phone: [facility] Start: 07-08-2022 ambulatory Christine Haas RN [facility] Communication Start: 07-08-2022 Patient encounter procedure Christine Haas RN [facility] Comment on above: Trauma (Primary Dx) Start: 07-07-2022 Telephone encounter Devendra ramos MD Work Phone: 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, with long-term current use of insulin, unspecified whether stage 3a or 3b CKD (HCC); DDD (degenerative disc disease), lumbar; Chronic right-sided low back pain with right-sided sciatica Start: 09-09-2021 End: 09-09-2021 Subsequent hospital visit by physician Shiv Lopez MD Work Phone: [facility] Comment on above: Dyspnea on exertion Start: 08-25-2021 End: 08-25-2021 Subsequent hospital visit by physician Sommer Chatterjee DPM Work Phone: [facility] Start: 11-05-2020 End: 11-05-2020 Subsequent hospital visit by physician Shiv Lopez MD Work Phone: [facility] Start: 10-07-2020 End: 10-07-2020 Subsequent hospital visit by physician hSiv Lopez MD Work Phone: [employer] [facility] Comment on above: Localized edema Start: 09-29-2020 End: 09-29-2020 Subsequent hospital visit by physician Shiv Lopez Work Phone: [facility] Start: 09-08-2020 End: 09-08-2020 Subsequent hospital visit by physician Shiv Lopez Work Phone: [facility] Start: 09-01-2020 End: 09-01-2020 Subsequent hospital visit by physician Roseanne Roberts Work Phone: [facility] Start: 08-18-2020 End: 08-18-2020 Subsequent hospital visit by physician Shiv Lopez Work Phone: [facility] Start: 07-31-2020 End: 07-31-2020 Subsequent hospital visit by physician Shiv Loepz Work Phone: [facility] Start: 02-01-2019 End: 02-01-2019 Emergency department patient visit Dick Ace Work Phone: [facility] Emergency [facility] Comment on above: Injury of head, init ial encounter (Primary Dx); Laceration of scalp, initial encounter; Strain of neck muscle, initial encounter Start: 01-18-2019 End: 01-18-2019 Subsequent hospital visit by physician Darya Berrios Work Phone: [facility] Laboratory Start: 12-21-2016 Ambulatory Shiv Lopez [facility] Procedures Date Procedure Procedure Detail Performing Clinician Start: 09-23-[address] Stevan Lopez MD Work Phone: Start: 09-05-[address] Stevan Lopez MD Work Phone: Start: 08-06-[address] Stevan Lopez MD Work Phone: Start: 07-31-2024 End: 07-31-2024 Plain X-ray of shoulder Dr. Shiv martin MD Work Phone: Start: 07-31-2024 X-ray of cervical spine Dr. Shiv Lopez MD Work Phone: Start: 06-23-2023 Urine culture Start: 05-10-2023 Urine culture Start: 03-17-2023 Investigation of transfusion reaction Start: 03-17-2023 Microbial culture, routine Start: 03-17-2023 Viral antigen assay Start: 03-03-2023 Glucose quantitative blood xcpt reagent strip Gabrielle Finch MD Work Phone: Start: 03-03-2023 Glucose quantitative blood xcpt reagent strip Gabrielle Finch MD Work Phone: Start: 03-02-2023 End: 03-02-2023 Comprehensive metabolic panel Gabrielle Finch MD Work Phone: Start: 03-01-2023 Glucose quantitative blood xcpt reagent strip Gabrielle Finch MD Work Phone: Start: 03-01-2023 Glucose quantitative blood xcpt reagent strip Gabrielle Finch MD Work Phone: Start: 03-01-2023 Glucose quantitative blood xcpt reagent strip Gabrielle Finch MD Work Phone: Start: 03-01-2023 Glucose quantitative blood xcpt reagent strip Gabrielle Finch MD Work Phone: Start: 03-01-2023 Comprehensive metabo lic panel Gabrielle Finch MD Work Phone: Start: 02-28-2023 Glucose quantitative blood xcpt reagent strip Gabrielle Finch MD Work Phone: Start: 02-28-2023 Glucose quantitative blood xcpt reagent strip Gabrielle Finch MD Work Phone: Start: 02-28-2023 Culture bacterial quanttative colony count urine Tasneem Whaley MD Work Phone: Start: 02-28-2023 Urinalysis complete panel - Urine Tasneem Whaley MD Work Phone: Start: 02-28-2023 Ct abdomen & pelvis w/o contrast material Tasneem Whaley MD Work Phone: Start: 02-28-2023 Comprehensive metabo lic panel Tasneem Whaley MD Work Phone: Start: 02-27-2023 Urnls dip stick/tabl et rgnt non-auto w/o micrscp Katia Bridenthal SOCIAL STAFF WORKER - P[employer]OGRAPH I ENGRAVER Work Phone: Start: 02-27-2023 Glucose [Mass/volume ] in Serum or Plasma Katia Bridenthal SOCIAL STAFF WORKER - P[employer]OGR[employer] I ENGRAVER Work Phone: Start: 02-27-2023 Thyrotropin [Units/v olume] in Serum or Plasma Imelda Mann RN Start: 12-07-2022 Comprehensive metabo lic panel Gabrielle Finch MD Work Phone: Start: 12-07-2022 End: 12-07-2022 Blood count hematocrit Bertram Durbin MD Work Phone: Start: 12-07-2022 End: 12-07-2022 Colonoscopy flx dx w/collj spec when pfrmd Avery Marshall DO Work Phone: Start: 12-07-2022 End: 12-07-2022 Blood count hematocrit Bertram Durbin MD Work Phone: Start: 12-07-2022 Glucose quantitative blood xcpt reagent strip Gabrielle Finch MD Work Phone: Start: 12-07-2022 Comprehensive metabo lic panel Bertram Durbin MD Work Phone: Start: 12-06-2022 Glucose quantitative blood xcpt reagent strip Gabrielle Finch MD Work Phone: Start: 12-06-2022 Blood count hematocrit Bertram Durbin MD Work Phone: Start: 12-06-2022 Blood count hematocrit Bertram Durbin MD Work Phone: Start: 12-06-2022 Glucose quantitative blood xcpt reagent strip Gabrielle Finch MD Work Phone: Start: 12-06-2022 End: 12-06-2022 Basic metabolic panel calcium total Bertram Durbin MD Work Phone: Start: 12-06-2022 Blood count complete automated Bertram Durbin MD Work Phone: Start: 12-05-2022 Glucose quantitative blood xcpt reagent strip Anusha Velarde MD Work Phone: Start: 12-05-2022 Blood count hemoglobin Bertram Durbin MD Work Phone: Start: 12-05-2022 Blood count complete automated Ashley OCONNOR Work Phone: Start: 12-05-2022 Blood typing serolog ic rh (d) Ashley OCONNOR Work Phone: Start: 12-05-2022 Ct angio abd&plvis c ntrst mtrl w/wo cntrst img Ashley OCONNOR Work Phone: Start: 12-05-2022 Glucose quantitative blood xcpt reagent strip Anusha Velarde MD Work Phone: Start: 12-05-2022 End: 12-05-2022 Basic metabolic panel calcium total Ashley OCONNOR Work Phone: Start: 06-30-2022 Lipid 1996 panel - S archana or Plasma Christine Haas RN Start: 06-30-2022 Thyrotropin [Units/v olume] in Serum or Plasma Christine Haas RN Start: 09-09-2021 Radiologic exam ches t 2 views Shiv Lopez MD Work Phone: Start: 08-04-2021 Cul prsmptv pthgnc o rganism scrn w/colony estimj Sommer Chatterjee DPM Work Phone: Start: 06-22-2021 Lipid 1996 panel - S archana or Plasma Shiv Lopez MD Work Phone: Start: 10-07-2020 Echo tthrc r-t 2d w/wom-mode compl spec&colr d Shiv Lopez MD Work Phone: Start: 02-01-2019 Radiologic exam ches t single view [employer] Work Phone: Start: 02-01-2019 Radiologic examinati on pelvis 1/2 views [employer] Work Phone: Start: 02-01-2019 Ct cervical spine w/ o contrast material [employer] Work Phone: Start: 02-01-2019 Ct head/brain w/o co ntrast material [employer] Work Phone: Start: 02-01-2019 Blood typing serologic abo [employer] Work Phone: Start: 02-01-2019 Assay of ethanol Dick [employer] Work Phone: Start: 02-01-2019 Basic metabolic pane l calcium total Dick [employer] Work Phone: Start: 02-01-2019 Blood count complete automated [employer] Work Phone: Start: 02-01-2019 PROTIME/INR & PTT Yobany Ace Work Phone: Plan of Treatment Date Care Activity Detail Author Start: 09-23-2024 Urine culture Urine Culture [facility] Start: 09-23-2024 [facility] Start: 09-05-2024 Urine culture Urine Culture [facility] Start: 09-05-2024 [facility] Start: 02-28-2024 Thyroid stimulating hormone measurement TSH Level [facility] Start: 02-18-2024 Influenza vaccination Influenza Vacc ine (#1) [facility] Start: 02-08-2024 COVID-19 Vaccine (3 - Booster for Brian series) COVID-19 Vaccine (3 - Booster for Brian series) [facility] Comment on above: Postponed from 06/21 (Patient Refused) Start: 02-08-2024 DTaP/Tdap/Td Vaccine s (1 - Tdap) DTaP/Tdap/Td Vaccines (1 - Tdap) [facility] Comment on above: Postponed from 08/27 (Patient Refused) Start: 02-08-2024 Hepatitis C screening Hepatitis C Sc reening [facility] Comment on above: Postponed from 08/27 (Patient Refused) Start: 02-08-2024 Zoster Vaccines (2 o f 2) Zoster Vaccines (2 of 2) [facility] Comment on above: Postponed from 05/26 (Patient Refused) Start: 08-10-2023 Depression Monitoring Depression Mon itoring [facility] Start: 08-10-2023 Depresssion Monitoring Depresssion M onitoring [facility] Start: 06-30-2023 Lipid panel Lipid Panel [facility] Start: 06-30-2023 Thyroid stimulating hormone measurement TSH Level [facility] Start: 06-30-2023 Urine screening for protein Diabetes: Urine Protein Screening [facility] Start: 06-19-2023 Medicare Advantage Annual Wellness Visit Medicare Advantage Annual Wellness Visit [facility] Start: 06-14-2023 [facility] Start: 04-27-2023 End: 04-27-2023 Patient encounter procedure [facility] Start: 04-27-2023 Depresssion [facility] Start: 04-08-2023 Blood chemistry [facility] Start: 04-01-2023 Blood chemistry [facility] Start: 03-25-2023 Blood chemistry [facility] Start: 03-20-2023 SARS-CoV-2 (COVID-19 ) Ag [Presence] in Respiratory specimen by Rapid immunoassay [facility] Start: 03-19-2023 Development of care plan [facility] Start: 03-18-[address] [facility] Start: 03-17-2023 End: 03-17-2023 [facility] Start: 03-17-2023 Microbial culture, routine Wound Culture [facility] Start: 03-17-2023 Bacterial nucleic ac id assay [facility] Start: 03-13-2023 [facility] Start: 03-06-2023 Referral to cheese blender [facility] Start: 03-04-2023 Development of care plan [facility] Start: 03-03-2023 Admission procedure [facility] Start: 03-03-2023 Measuring intake and output [facility] Start: 03-03-2023 Patient referral to dietitian [facility] Start: 03-03-2023 Referral to occupational therapist [facility] Start: 03-03-2023 Referral to service [facility] Start: 03-03-2023 Vital signs measurements [facility] Start: 03-03-2023 [facility] Start: 03-03-2023 Verification routine [facility] Start: 03-03-2023 End: 03-03-2023 Patient encounter procedure [facility] Start: 03-03-2023 Patient referral to dietitian [facility] Start: 02-27-2023 End: 02-28-2024 Bacteria identified in Urine by Culture Urine culture (clean catch) Microbiology Routine Urinary tract infection symptoms Expected: 02/27/2023 (Approximate), Expires: 02/28/2024 [facility] Comment on above: Expected: 02/27/2023 (Approximate), Expires: 02/28/2024 Start: 02-27-2023 End: 02-28-2024 CBC W Auto Differential panel - Blood CBC auto differential Lab Routine History of GI bleed Expected: 02/27/2023 (Approximate), Expires: 02/28/2024 [facility] Comment on above: Expected: 02/27/2023 (Approximate), Expires: 02/28/2024 Start: 02-27-2023 End: 02-28-2024 Comprehensive metabolic 1998 panel - Serum or Plasma Comprehensive metabolic panel Lab Routine 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, with long-term current use of insulin, unspecified whether stage 3a or 3b CKD (HCC) Primary hypertension Hypokalemia Expected: 02/27/2023 (Approximate), Expires: 02/28/2024 [facility] Work Phone: Comment on above: Expected: 02/27/2023 (Approximate), Expires: 02/28/2024 Start: 02-27-2023 End: 02-28-2024 Magnesium [Mass/volume] in Serum or Plasma Magnesium Lab Routine 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, with long-term current use of insulin, unspecified whether stage 3a or 3b CKD (HCC) Hypokalemia Expected: 02/27/2023 (Approximate), Expires: 02/28/2024 [facility] Comment on above: Expected: 02/27/2023 (Approximate), Expires: 02/28/2024 Start: 02-27-2023 End: 02-28-2024 Thyrotropin [Units/volume] in Serum or Plasma TSH Lab Routine Acquired hypothyroidism Expected: 02/27/2023 (Approximate), Expires: 02/28/2024 [facility] Comment on above: Expected: 02/27/2023 (Approximate), Expires: 02/28/2024 Start: 02-27-2023 End: 02-27-2023 Patient encounter procedure 02/27/2023 1:00 PM EDT Office Visit [facility] [address] [place] [id number] Carolina Connolly, SOCIAL STAFF WORKER - PANTOGRAPH I ENGRAVER [address] [place] [address] [facility] Start: 02-24-2023 End: 02-24-2023 Patient encounter procedure 02/24/2023 11:20 AM EDT Office Visit [facility] Family [facility] [address] [place] [address] [place] [address] Katia Granados, SOCIAL STAFF WORKER - PANTOGRAPH I ENGRAVER [address] [place] [address] [place] [address] [facility] Start: 02-22-2023 End: 02-22-2023 Patient encounter procedure 02/22/2023 2:00 PM EDT Appointment [facility] [address] [place] [address] Lenard Magallanes, [address] [place] [address] [facility] Start: 02-17-2023 COVID-19 Vaccine ( season) COVID-19 Vaccine ( season) [facility] Start: 02-17-2023 Influenza vaccination Influenza Vacc ine (#1) [facility] Start: 02-14-2023 End: 02-14-2023 Patient encounter procedure 02/14/2023 10:20 AM EDT Office Visit [facility] [address] [place] [address] [place] [address] Katia Granados, SOCIAL STAFF WORKER - PANTOGRAPH I ENGRAVER [address] [facility] [place] [address] [place] [address] [facility] Start: 02-01-2023 End: 02-01-2023 Patient encounter procedure 02/01/2023 2:15 PM EDT Office Visit [facility] [address] [place] [address] [place] [address] Shiv Lopez MD [address] [place] [address] [place] [address] [facility] Start: 01-25-2023 End: 01-25-2023 Patient encounter procedure 01/25/2023 3:00 PM EDT Office Visit [address] [place] [address] Shiv Lopez MD [address] [place] [address] [place] [address] [facility] Start: 01-03-2023 Hemoglobin A1c measurement Diabetes: Hemoglobin A1C [facility] Start: 10-25-2022 End: 10-25-2022 Patient encounter procedure 10/25/2022 Office Visit Family Medicine Shiv Lopez MD [address] [place], [place] [address] [address] [facility] Start: 09-29-2022 End: 09-29-2022 Patient encounter procedure 09/29/2022 Office Visit Family Medicine Shiv Lopez MD [address] [place] [address] [place] [address] [facility] Start: 09-28-2022 Hemoglobin A1c measurement Diabetes: Hemoglobin A1C [facility] Start: 09-09-2022 Creatinine measurement Creatinine mo nitoring [facility] Start: 09-09-2022 Potassium monitoring Potassium monit oring [facility] Start: 09-09-2022 Thyroid stimulating hormone measurement TSH testing [facility] Start: 08-05-2022 Creatinine measurement Creatinine mo nitoring [facility] Start: 08-05-2022 Potassium monitoring Potassium monit oring [facility] Start: 07-08-2022 Depression Monitoring Depression Mon itoring [facility] Start: 06-30-2022 End: 06-30-2023 25-hydroxyvitamin D3 [Mass/volume] in Serum or Plasma Vitamin D 25 hydroxy Lab Routine Vitamin D deficiency Expected: 06/30/2022 (Approximate), Expires: 06/30/2023 [facility] Work Phone: Comment on above: Expected: 06/30/2022 (Approximate), Expires: 06/30/2023 Start: 06-30-2022 End: 06-30-2023 Comprehensive metabolic 1998 panel - Serum or Plasma Comprehensive metabolic panel Lab Routine Uncontrolled type 2 diabetes mellitus with hyperglycemia (HCC) Expected: 06/30/2022 (Approximate), Expires: 06/30/2023 [facility] Comment on above: Expected: 06/30/2022 (Approximate), Expires: 06/30/2023 Start: 06-30-2022 End: 06-30-2023 Hemoglobin A1c/Hemoglobin.total in Blood Hemoglobin A1c Lab Routine Uncontrolled type 2 diabetes mellitus with hyperglycemia (HCC) Expected: 06/30/2022 (Approximate), Expires: 06/30/2023 [facility] Comment on above: Expected: 06/30/2022 (Approximate), Expires: 06/30/2023 Start: 06-30-2022 End: 06-30-2023 Lipid 1996 panel - Serum or Plasma Lipid panel Lab Routine Hyperlipidemia with target LDL less than 70 Expected: 06/30/2022 (Approximate), Expires: 06/30/2023 [facility] Comment on above: Expected: 06/30/2022 (Approximate), Expires: 06/30/2023 Start: 06-30-2022 End: 06-30-2023 Microalbumin/Creatinine panel in random Urine Microalbumin / creatinine urine ratio Lab Routine Uncontrolled type 2 diabetes mellitus with hyperglycemia (HCC) Expected: 06/30/2022 (Approximate), Expires: 06/30/2023 [facility] Comment on above: Expected: 06/30/2022 (Approximate), Expires: 06/30/2023 Start: 06-30-2022 End: 06-30-2023 Thyrotropin [Units/volume] in Serum or Plasma TSH Lab Routine Acquired hypothyroidism Expected: 06/30/2022 (Approximate), Expires: 06/30/2023 [facility] Comment on above: Expected: 06/30/2022 (Approximate), Expires: 06/30/2023 Start: 06-22-2022 Lipid panel [facility] Start: 03-31-2022 Pneumococcal Vaccine : 65+ Years (2 - PCV) Pneumococcal Vaccine: 65+ Years (2 - PCV) [facility] Start: 02-28-2022 End: 02-28-2022 Patient encounter procedure 02/28/2022 Office Visit Family Shiv Freed MD [address] [place] [address], [facility] [place] [address] [facility] Start: 02-17-2022 Annual Wellness Visi t (AWV) Annual Wellness Visit (AWV) [facility] Start: 02-16-2022 Hepatitis C screening Hepatitis C sc reen [facility] Comment on above: Postponed from 08/27 (Patient Refused) Start: 02-16-2022 Thyroid stimulating hormone measurement TSH testing [facility] Start: 11-02-2021 Hemoglobin A1c measurement Diabetes: Hemoglobin A1C [facility] Start: 10-01-2021 Creatinine measurement Creatinine mo nitoring [facility] Work Phone: Start: 10-01-2021 Potassium monitoring Potassium monit oring [facility] Work Phone: Start: 09-13-2021 End: 09-13-2021 Patient encounter procedure 09/13/2021 Office Visit Family Medicine Shiv Lopez MD [address] [place] [address], [facility] [place] [address] [facility] Start: 09-02-2021 End: 09-02-2021 Patient encounter procedure 09/02/2021 Office Visit Family Shiv Freed MD [address] [place] [address], [facility] [place] [address] [facility] Start: 06-24-2021 Thyroid stimulating hormone measurement TSH testing [facility] Work Phone: Start: 06-24-2021 TSH Qn TSH testing [facility] Work Phone: Start: 06-21-2021 COVID-19 Vaccine (3 - Booster for Brian series) COVID-19 Vaccine (3 - Booster for Brian series) [facility] Start: 05-26-2021 Shingles Vaccine (2 of 2) Shingles Vaccine (2 of 2) [facility] Start: 05-26-2021 Zoster Vaccines (2 o f 2) Zoster Vaccines (2 of 2) [facility] Start: 04-20-2021 Creatinine measurement Creatinine mo nitoring [facility] Work Phone: Start: 04-20-2021 Potassium monitoring Potassium monit oring [employer] Work Phone: Start: 01-15-2021 Screening for osteoporosis DEXA (modify frequency per FRAX score) [facility] Work Phone: Comment on above: Postponed from 08/27 (Patient Refused) Start: 01-07-2021 Urine screening for protein Diabetes: Urine Protein Screening [facility] Start: 10-12-2020 End: 10-12-2020 Patient encounter procedure 10/12/2020 Office Visit Family [place] [address] [phone] [facility] Start: 10-08-2020 End: 10-08-2020 Patient encounter procedure 10/08/2020 Office Visit [place] [address] [phone] Canceled (Patient) [facility] Comment on above: Canceled (Patient) Start: 10-01-2020 End: 10-01-2020 Office Visit 10/01/2020 Office Visit [facility] [place] [id number] [facility] Start: 06-03-2020 Lipid panel Lipid screen [facility] Work Phone: Start: 01-21-2020 A1C test (Diabetic o r Prediabetic) A1C test (Diabetic or Prediabetic) [place], [place] Start: 01-19-2020 TSH testing TSH testing [place], [place] Start: 06-07-2019 DTaP/Tdap/Td vaccine (1 - Tdap) DTaP/Tdap/Td vaccine (1 - Tdap) [place] Comment on above: Postponed from 08/27 (Patient Refused) Start: 05-23-2019 Diabetic retinal exam Diabetic retin al exam [place], [place] Start: 04-12-2019 Lipid screen Lipid screen [place], [place] Start: 02-17-2019 Influenza vaccination Flu vaccine (# 1) [place], [place] Start: 12-05-2018 Annual Wellness Visi t (AWV) Annual Wellness Visit (AWV) [facility] Phone: Start: 10-06-2017 [object Object] Diabetic foot exam [place] Start: 10-06-2017 Annual Wellness Visi t (AWV) Annual Wellness Visit (AWV) [place], [place] Start: 03-09-2013 Pneumococcal 65+ yea rs Vaccine (2 of 2 - PCV13) Pneumococcal 65+ years Vaccine (2 of 2 - PCV13) [place], [place] Start: 08-27-2008 DEXA (modify frequen cy per FRAX score) DEXA (modify frequency per FRAX score) [place] Start: 08-27-2008 Pneumococcal 65+ yea rs Vaccine (1 of 2 - PCV13) Pneumococcal 65+ years Vaccine (1 of 2 - PCV13) [place], [place] Start: 2003 RSV Immunization age d 60 or older (1 - 1-dose 60+ series) RSV Immunization aged 60 or older (1 - 1-dose 60+ series) [facility] Start: 08-27-1993 Colon cancer screen colonoscopy Colon cancer screen colonoscopy [place], [place] Start: 08-27-1993 Shingles Vaccine (1 of 2) Shingles Vaccine (1 of 2) [place] Start: 08-27-1962 DTaP/Tdap/Td vaccine (1 - Tdap) DTaP/Tdap/Td vaccine (1 - Tdap) [facility] Start: 08-27-1962 DTaP/Tdap/Td Vaccine s (1 - Tdap) DTaP/Tdap/Td Vaccines (1 - Tdap) [facility] Start: 08-27-1961 Hepatitis C screening Hepatitis C Sc reening [facility] Start: 1959 COVID-19 Vaccine (1 of 2) COVID-19 Vaccine (1 of 2) [facility] Work Phone: Start: 1959 COVID-19 Vaccine (1) COVID-19 Vaccin e (1) [facility] Work Phone: Start: 08-27-1953 Diabetic foot examination Diabetes: Foot Exam [facility] Start: 08-27-1953 Glaucoma screening Diabetes: R etinopathy Screening [facility] Start: 08-27-1953 Preventive dental service Diabetes: Dental Exam [facility] Start: 1943 Hepatitis B Vaccines (1 of 3 - 3-dose series) Hepatitis B Vaccines (1 of 3 - 3-dose series) [facility] Start: 1943 Hepatitis C screening Hepatitis C sc reen [facility] Work Phone: Start: 1943 Thyroid stimulating hormone measurement TSH Level [facility] Dressing Order: Xeroform; Daily; Silicone foam borders (multiple sizes) Dressing Order: Xeroform; Daily; Silicone foam borders (multiple sizes) Wound Ostomy Routine Ordered: 02/15/2023 [facility] Work Phone: Comment on above: Ordered: 02/15/2023 EKG 12 Lead EKG 12 Lead ECG Routine 02/01/2019 7:40 PM EDT [facility] [place], [place] Patient referral [facility] Work Phone: Tissue exam [facility] Work Phone: Comment on above: Release Upon Ismaelin g for 1 Occurrences starting 12/07/2022, 1 completed Immunizations Immunization Date Immunization Notes Care Provider Jenny madsen 03-17-2023 Influenza High-Dose Quadrivalent [facility] 03-17-2023 influenza virus vacc ine, unspecified formulation Felicia Garcia LPN [facility] 03-01-2023 Influenza Vac A&B SA Adj quadrivalent (Fluad) vaccine 0.5 mL Tasneem Whaley MD Work Phone: [facility] 04-26-2022 influenza, high dose seasonal, preservative-free Shiv Lopez MD Work Phone: [facility] 04-26-2022 Pneumococcal Conjuga te PCV20, Pf (Prevnar 20) Shiv Lopez MD Work Phone: [facility] 04-26-2022 influenza virus vacc ine, unspecified formulation Katia Granados SOCIAL STAFF WORKER - PANTOGRAPH I ENGRAVER Work Phone: [facility] 04-26-2021 COVID-19, Moderna, Primary or Immunocompromised, PF, 100mcg/0.5mL Sommer Chatterjee DPM Work Phone: [facility] Work Phone: 03-31-2021 Influenza, Quadv, adjuvanted, 65 yrs +, IM, PF (Fluad) Sommer JARRETTM Work Phone: [facility] Work Phone: 03-31-2021 pneumococcal polysaccharide vaccine, 23 valent Sommer JARRETTM Work Phone: [facility] Work Phone: 03-31-2021 zoster vaccine recombinant Sommer Chatterjee DPM Work Phone: [facility] Work Phone: 08-27-2020 COVID-19, J&J, PF, 0 .5 mL Shiv Lopez MD Work Phone: [facility] Work Phone: 03-31-2020 influenza virus vacc ine, unspecified formulation Shiv Lopez [facility] Work Phone: 03-31-2020 Influenza, Quadv, adjuvanted, 65 yrs +, IM, PF (Fluad) Shiv Lopez [facility] Work Phone: 06-03-2019 influenza, high dose seasonal, preservative-free Shiv Lopez [facility] 05-25-2018 influenza, high dose seasonal, preservative-free Darya Berrios [facility] 05-13-2013 influenza virus vacc ine, unspecified formulation Darya Berrios [place], [place] 05-13-2013 influenza virus vacc ine, whole virus Shiv MERCADO Work Phone: 03-09-2012 pneumococcal Conjuga te, unspecified formulation Shiv MERCADO Work Phone: 03-09-2012 pneumococcal polysaccharide vaccine, 23 valent Darya Berrios [facility] [facility]2012 pneumococcal vaccine , unspecified formulation [facility] 04-13-2010 pneumococcal polysaccharide vaccine, 23 valent Darya GALEANO 03-21-2001 pneumococcal polysaccharide vaccine, 23 valent Darya Berrios [place], [place] Payers Date Payer Category Payer Unknown [id number] 2023 Self-pay [id number] 2023 Unknown [id number] 2023 Unknown [id number] 2022 Medicare HUMANA MEDICARE ADVANTAGE HUMANA MEDICARE [id number] 2022-Present [address] [address] [place] [address] Medicare O [id number] 2020 Medicare [id number]. 7.3.751413.315 2020 Medicare [id number]. 7.3.598748.315 2018 Medicare HUMANA MEDICARE HUMANA CHOICE-PPO MEDICARE xxxxxxxxx 2018-Present [address] [address] [place] [address] xxxxxxxxx [id number]. [id number] Private Health Insurance [facility] [id number] Unknown Unknown [id number] Unknown [id number] 2..840.1.610007.3.579.2. 462 Unknown [id number] 2.840.1.845886.3.579.2. 462 Unknown [id number] 2.840.1.683262.3.579.2. 462 Unknown [id number] 2.840.1.948402.3.579.2. 462 Unknown [id number] 2.840.1.386952.3.579.2. 462 Unknown [id number] 2.840.1.790554.3.579.2. 462 Unknown [id number] 2.840.1.718459.3.579.2. 462 Unknown [id number] 2.840.1.889895.3.579.2. 462 Unknown [id number] 2.840.1.245820.3.579.2. 462 Unknown [id number] 2.840.1.878215.3.579.2. 462 Unknown [id number] 2.840.1.076669.3.579.2. 462 Unknown [id number] 2.840.1.649223.3.579.2. 462 Unknown [id number] 2.16.840.1.694579.3.579.2. 462 Unknown [id number] 2.840.1.689010.3.579.2. 462 Unknown [id number] 2.16840.1.498318.3.579.2. 462 Unknown [id number] 2.16.840.1.810015.3.579.2. 462 Unknown [id number] 2.16.840.1.851864.3.579.2. 462 Unknown [id number] 2.16.840.1.748516.3.579.2. 462 Unknown [id number] 2.16.840.1.040789.3.579.2. 462 Unknown [id number] 2.16.840.1.246870.3.579.2. 462 Unknown [id number] 2.16.840.1.457160.3.579.2. 462 Unknown [id number] 2.16840.1.993883.3.579.2. 462 Unknown [id number] 2.16840.1.479402.3.579.2. 462 Unknown [id number] 2.840.1.702651.3.579.2. 462 Unknown [id number] 2.16840.1.364404.3.579.2. 462 Unknown [id number] 2.16840.1.173026.3.579.2. 462 Unknown [id number] 2.16840.1.593240.3.579.2. 462 Unknown [id number] 2.16840.1.266871.3.579.2. 462 Unknown [id number] 2.840.1.109576.3.579.2. 462 Unknown [id number] 2.840.1.714112.3.579.2. 462 Unknown [id number] 2.840.1.632256.3.579.2. 462 Unknown [id number] 2.840.1.947735.3.579.2. 462 Social History Date Type Detail Facility Start: 07-13-2020 End: 03-03-2023 Tobacco smoking status NHIS Never smoker [place] Start: 07-13-2020 End: 04-09-2022 Tobacco use and exposure Never used [employer] Work Phone: Start: 07-13-2020 End: 06-30-2022 Alcohol intake Current drinker of alcohol (finding) [employer] Work Phone: Start: 01-13-2015 Alcohol Comment Social [place], [place] Start: 1945 Sex Assigned At Female [employer] Work Phone: Start: 08-30-2021 End: 02-28-2023 Exposure to SARS-CoV-2 (event) Not sure [employer] Work Phone: Start: 01-18-2019 End: 12-13-2022 Alcohol intake Yes [facility] Sex Assigned At Not on file [facility] [place] Start: 02-01-2019 End: 03-03-2023 Tobacco smoking status NHIS Unknown if ever smoked [facility] Start: 10-14-2020 End: 12-13-2022 Alcohol intake [facility] Start: 02-16-2021 End: 04-26-2022 History SDOH Alcohol Frequency 1 [employer] Work Phone: Start: 02-15-2021 End: 04-26-2022 History SDOH Financial 3 [employer] Work Phone: Start: 02-15-2021 End: 04-26-2022 History SDOH Transport Med 2 [employer] Work Phone: Start: 04-09-2022 Alcohol Comment social [facility] Within the last year , have you been afraid of your partner or ex-partner? No [facility] How often to you hav e a drink containing alcohol? 2-4 times a month [facility] How many standard dr inks containing alcohol do you have on a typical day? 1 or 2 [facility] How often do you hav e 6 or more drinks on 1 occasion? Never [facility] How hard is it for y ou to pay for the very basics like food, housing, medical care, and heating Hard [facility] (I/We) worried wheth er (my/our) food would run out before (I/we) got money to buy more. Never true [facility] In the past 12 month s, has lack of transportation kept you from medical appointments or from getting medications? No [facility] Start: 12-07-2022 Alcohol Comment social; 1 mixed drink every 2 weeks [facility] Start: 04-07-2022 Gender identity Identifies as female gender (finding) [facility] Start: 04-07-2022 Sexual orientation Heterosexual (finding) [facility] Do you feel stress - tense, restless, nervous, or anxious, or unable to sleep at night because your mind is troubled all the time - these days [OSQ] Only a little [facility] Are you now , , , , never or living with a partner? [facility] Start: 09-18-2024 End: 10-14-2024 Sex Female (finding) [facility] Medical Equipment Procedure Code Equipment Code Equipment Origin al Text Equipment Identifier Dates Test blood sugar 4 times a day [id number] Start: 03-25-2020 End: 10-01-2020 2 daily [id number] Start: 03-20-2019 Test blood sugar 4 times daily [id number] Start: 01-01-2019 test blood sugar 4 times daily [id number] Start: 01-13-2020 300 each by Does not apply route 4 times daily [id number] Start: 01-01-2019 ASSURE COMFORT LANCETS 30G MISC [id number] Start: 09-07-2016 1 each by In Vit ro route 4 times daily [id number] Start: 01-01-2019 4 times a day [id number] Start: 09-22-2017 2 daily [id number] Start: 01-03-2019 4 times a day [id number] Start: 07-25-2018 1 each by In Vit ro route 4 times daily as needed (patient tests four times daily and as needed) Patient tests QID [id number] Start: 03-01-2021 Test blood sugar 4 times daily [id number] Start: 12-18-2020 1 each by In Vit ro route 4 times daily Accu-check [employer] [facility] [id number] Start: 06-22-2021 End: 08-05-2021 Test blood sugar 3 times a day.PLEASE FILL FOR QUIK TEST STRIPS [id number] Start: 09-09-2021 [id number] Start: 01-10-2022 End: 03-03-2023 Goals Date Patient Goal Desired Activity /State Comment on above: Self- Management Aliya n: Obesity/Weight Loss Patient Stated Goal: Weight Loss Barriers to success: none Plan for overcoming my barriers: help from doctor. Encouraged and recommended by provider. Confidence: 10/26 Self-Management Plan: Will strive to achieve goal by 2017 goal set: 10/06/16 Patient given educational materials below via AVS. Provider Goal: Healthy diet and exercise. Patient received counseling about current lifestyle goal. Advised approximately 150 minutes of cardio, i.e treadmill, exercise in a week. Advised strive for 5 a total 5 servings of fruits and vegetables in a day. Advised a diet lower in carbohydrates and simple sugars. They need to watch consumption of bread, rice, pasta, potatoes, corn, soda, sweetened tea, lemonade, and all other sugar drinks. Patient given after visit summary which includes educational information on Diabetes. Discussed use, benefit, and side effects of prescribed medications and barriers to medication compliance addressed, if applicable. All patient questions answered and patient voiced understanding. Patient was given a copy of this, and was advised to call if any questions. Formatting of this n ote might be different from the original. Self- Management Plan: Obesity/Weight Loss Patient Stated Goal: Weight Loss Barriers to success: none Plan for overcoming my barriers: help from doctor. Encouraged and recommended by provider. Confidence: 10/26 Self-Management Plan: Will strive to achieve goal by 2017 goal set: 10/06/16 Patient given educational materials below via AVS. Provider Goal: Healthy diet and exercise. Patient received counseling about current lifestyle goal. Advised approximately 150 minutes of cardio, i.e treadmill, exercise in a week. Advised strive for 5 a total 5 servings of fruits and vegetables in a day. Advised a diet lower in carbohydrates and simple sugars. They need to watch consumption of bread, rice, pasta, potatoes, corn, soda, sweetened tea, lemonade, and all other sugar drinks. Patient given after visit summary which includes educational information on Diabetes. Discussed use, benefit, and side effects of prescribed medications and barriers to medication compliance addressed, if applicable. All patient questions answered and patient voiced understanding. Patient was given a copy of this, and was advised to call if any questions. Functional Status Date Assessment Result Facility 03-18-2023 Functional status Ambulates;Wilson r;Bathroom Privilege [facility] Work Phone: Mental Status Date Assessment Result Facility 03-18-2023 Cognitive function Voice/Name [facility] Work Phone: 03-18-2023 Cognitive function Appropriate;Cooperativ e [facility] Work Phone: Clinical Notes 06-30-2022 to 12-29-2023 Felicia Garcia LPN - 12/29/2023 1:02 PM EDTRyolanda Garcia LPN - 12/29/2023 1:02 PM EDTAshia Dumont - 12/29/2023 1:02 PM EDT Note Date & Type Note Facility 12-29-2023 History of Presen t illness Narrative Please schedule AWV. documented in this encounter [facility] 12-29-2023 History of Presen t illness Narrative Please schedule AWV. Called patient---phone number is not working--sent letter by mail. documented in this encounter [facility] 05-19-2023 Note THE PT. WAS SCHEDULE D FOR AN OUTREACH TODAY. EMR REVIEWED. CM CALLED AND SPOKE WITH A STAFF MEMBER AT [facility] AND THE PT. IS STILL ADMITTED TO [facility]. CM WILL CONTINUE TO FOLLOW-UP WITH THE PT. ONCE SHE IS DISCHARGED TO HOME. [facility] 05-03-2023 Note THE PT. WAS SCHEDULE D FOR AN OUTREACH TODAY. EMR REVIEWED. CM CALLED AND SPOKE WITH A STAFF MEMBER AT [facility] AND THE PT. IS STILL ADMITTED TO THE [facility]. CM WILL CONTINUE TO FOLLOW-UP WITH THE PT. ONCE SHE IS DISCHARGED TO HOME. [facility] 03-29-2023 Note Referral from [facility] Daily Census Report. Patient with recent admit to [facility] 02/28-03/03 with LING/functional decline and was discharged to [facility]. Patient with several chronic diagnoses. Will send referral to [facility] Shari BARROW, for further chart review and potential ongoing CM. [facility] 03-17-2023 Discharge summary Note Date/Time March 15, 2023 7:15pm [facility] Medical Records Department [address] [place] [address] Discharge Summary 03/15/231913 MR#: [id number] Acct: [id number] Name: RADHA SANDOVAL Rep #:[id number] : 1945 77 From: Baljit Jaffe MD PCP: Dr. Shiv Lopez MD Status:ADM IN Location: TCU [place] [address] Providers Date of Admission: 03/03/23 Primary Care Physician: Dr. Shiv Lopez MD Consultations 03/06/23 16:41 Consult: Podiatry Routine Consulting Provider: Omar Huitron Reason for Consult: General foot care. EMERGENT Consult: No MD Notified: Yes Date Notified: 03/06/23 Time Notified: 15:00 Method of Notification: Verbal Reason For Visit: UTI/PRESSURE WOUND Diagnosis Discharge Diagnosis (1) Type 2 diabetes mellitus with diabetic polyneuropathy: Status: Acute Code(s): E11.42 - Type 2 diabetes mellitus with diabetic polyneuropathy (2) Acquired lymphedema: Status: Acute Code(s): I89.0 - Lymphedema, not elsewhere classified (3) Tinea unguium: Status: Acute Code(s): B35.1 - Tinea unguium (4) Pain in right toe(s): Status: Acute Code(s): M79.674 - Pain in right toe(s) (5) Pain in left toe(s): Status: Acute Code(s): M79.675 - Pain in left toe(s) Plan 77 year old female with below past medical history hospitalized for weakness, urinary tract infection, low back pain, admitted to TCU with debility, here for rehabilitation, strengthening, prior to discharge home alone. * Debility - PT/OT. * Pain - Tylenol 1000mg Q6h prn pain (1-10). * Bowel - senna/colace 1 tablet bid, Magnesium citrate 300ml daily prn. * Adult immunization - Administer pneumonia vaccine, covid19 vaccine, flu vaccine as appropriate. * DVT prophylaxis - Lovenox 40mg sc daily. * Shortness of breath - Albuterol 2 puffs q6h prn. * Hypertension - Amlodipine 10mg daily, Hydralazine 25mg tid. * Hyperlipidemia - Atorvastatin 20mg qhs. * Muscle spasm - Baclofen 10mg daily. 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 * Vitamin D deficiency - D2 50,000 units per week. * Nutrition - Glucerna shake 120ml po tidcm. * Diabetes Mellitus II - Glargine 19 units daily, Lispro 10 units tidac. * Hypothyroidism - Levothyroxine 125mcg daily. * Insomnia - Melatonin 3mg qhs. * Skin irritation - Calmoseptine topical bid. * Tinea Corporis - Nystatin powder topical bid, Mycolog topical bid. * Depression - Paroxetine 20mg qhs, stable chronic mcfp use, GDR not recommended. * Restless Leg syndrome - Mirapex 0.25mg qhs. Medications at Discharge Home Medications ergocalciferol (vitamin D2) 1,250 mcg (50,000 unit) capsule (Vitamin D2) 1,250 mcg PO QWEEK Supplement 12/23/20 levothyroxine 112 mcg tablet 125 mcg PO DAILY Thyroid 12/23/20 amlodipine 10 mg tablet 10 mg PO DAILY BP #90 tabs 07/15/21 baclofen 10 mg tablet 10 mg PO DAILY Muscle Spasms 03/03/23 buspirone 5 mg tablet 5 mg PO BID PRN anxiety 03/03/23 hydralazine 25 mg tablet 25 mg PO TID BP 03/03/23 insulin glargine 100 unit/mL subcutaneous solution 19 unit subcut DAILY Bdfokshc32/15/23 insulin lispro 100 unit/mL subcutaneous pen (Humalog KwikPen (U-100) Insulin) 10unit subcut TID Diabetes 03/03/23 melatonin 3 mg capsule 3 mg PO QHS Sleep 03/03/23 paroxetine HCl 20 mg tablet (Paxil) 20 mg PO DAILY Mood 03/03/23 pramipexole 0.125 mg tablet 0.25 mg PO QHS Overactive Bladder 03/03/23 Petrolatum 33% [Eucerin Eqivalent] 1 applic topical BID ##0 03/15/23 acetaminophen 500 mg tablet 1,000 mg (2 x 500 mg) PO Q6H PRN Pain 1-10 #0 tabs 03/15/23 ammonium lactate 12 % lotion 1 applic topical BID #0 grams 03/15/23 atorvastatin 20 mg tablet 20 mg PO QHS #0 tabs 03/15/23 cephalexin 500 mg capsule 500 mg PO Q6 4 days #0 caps 03/15/23 furosemide 40 mg tablet 40 mg PO DAILY 4 days #0 tabs 03/15/23 hydroxyzine pamoate 25 mg capsule 50 mg (2 x 25 mg) PO TID PRN PRN ITCHING/ANXIETY #0 caps 03/15/23 menthol 0.44 %-zinc oxide 20.6 % topical ointment (Calmoseptine) 1 applic topical BID #0 grams 03/15/23 nystatin 100,000 unit/gram topical powder (Nyamyc) 1 applic topical BID #0 grams03/15/23 sennosides 8.6 mg-docusate sodium 50 mg tablet (Stool Softener-Stimulant Laxative) 1 tab PO BID #0 tabs 03/15/23 tolterodine 2 mg capsule,extended release 24 hr 2 mg PO DAILY #0 caps 03/15/23 triamcinolone acetonide 0.1 % topical ointment 1 applic topical BID #0 grams 03/15/23 Hospital Course Operations None Procedures None Summary of Care Provided Minutes Spent on Discharge: 35 Hospital Course: 77 year old female with below past medical history hospitalized for weakness, urinary tract infection, low back pain, admitted to TCU with debility, here for rehabilitation, strengthening, prior to discharge home alone. 03/15/2023 Furosemide 40mg daily x 7 days for lymphedema, Cephalexin 500mg q6 x 7days for cellulitis bilateral lower extremities. Discharge to [facility] 03/18/2023, intermediate, Part B therapies. Physical Exam Const alert General Appearance: cooperative HEENT normocephalic Eyes PERRL and EOMs intact bilaterally Neck supple, no JVD and no carotid bruits Resp normal respiratory effort, normal air movement and clear to auscultation bilaterally Cardio regular rate and regular rhythm GI normal to inspection, nondistended, normoactive bowel sounds, non-tender and non-distended Extremity normal capillary refill Extremity Narrative: 2+ pitting edema bilateral lower extremities. Redness, tenderness bilateral distal lower extremities. General Extremity: Negative for edema Skin no rashes or lesions noted General Skin Exam: no breakdown Psych affect normal Appearance: appropriate Weight / BMI Weight Weight: 113.217 kg Body Mass Index (BMI) 39.1 ABG / Lab / Microbiology Data 03/12/23 05:50 03/11/23 06:50 Laboratory: Laboratory Results - last 24 hr 03/14/23 21:40: POC Glucose 126 H 03/15/23 05:51: POC Glucose 131 H 03/15/23 11:01: POC Glucose 206 H 03/15/23 16:36: POC Glucose 107 H Microbiology: Microbiology 03/14/23 06:14 Nasal Secretion SARS-CoV-2 Antigen (Rapid) - Final 03/11/23 05:30 Nasal Secretion SARS-CoV-2 Antigen (Rapid) - Final 03/08/23 06:45 Nasal Secretion SARS-CoV-2 Antigen (Rapid) - Final 03/05/23 05:40 Nasal Secretion SARS-CoV-2 Antigen (Rapid) - Final 03/03/23 17:19 Nasal Secretion SARS-CoV-2 Antigen (Rapid) - Final D/C Instructions Discharge Diet: No restrictions Discharge Activity: Return to Normal Activity, May Shower and Use Walker Weight Bearing Status: Weight bearing as tolerated Call your doctor if you observe: Fever of 101 or Higher, Inability to urinate, Inability to have a bowel movement, Shortness of breath, Dizziness, Fainting spells, Chest pain and Uncontrolled pain Additional Instructions: Discharge to [facility] 03/18/2023, intermediate, Part B therapies. Meaningful Use Info Meaningful Use Diagnoses (Choose all that apply): None applicable Discharge Plan Admission Admit Date/Time: 03/03/23 13:30 Primary Reason for Your Visit: Debility. Attending Provider: Baljit Jaffe Chi Primary Care Provider: Shiv Lopez Consulting Providers: Omar Huitron Instructions Additional Instructions / Restrictions: Discharge to [facility] 03/18/2023, intermediate, Part B therapies. Discharge Orders/Prescriptions Prescriptions: New acetaminophen 500 mg Tablet 1,000 mg PO Q6H PRN (Reason: Pain 1-10) Qty: 0 0RF furosemide 40 mg Tablet 40 mg PO DAILY 4 Days Qty: 0 0RF atorvastatin 20 mg Tablet 20 mg PO QHS Qty: 0 0RF ammonium lactate 12 % Lotion 1 applic topical BID Qty: 0 0RF Protocol: *Topical Application Instructions APPLICATION INSTRUCTIONS: apply to bilateral lower extremities 1-2 times per day cephalexin 500 mg Capsule 500 mg PO Q6 4 Days Qty: 0 0RF hydroxyzine pamoate 25 mg Capsule 50 mg PO TID PRN PRN (Reason: ITCHING/ANXIETY) Qty: 0 0RF menthol-zinc oxide [Calmoseptine] 0.44-20.6 % Ointment 1 applic topical BID Qty: 0 0RF Protocol: *Topical Application Instructions APPLICATION INSTRUCTIONS: DI BUTTOCKS/COCCYX sennosides-docusate sodium [Stool Softener-Stimulant Laxat] 8.6-50 mg Tablet 1 tab PO BID Qty: 0 0RF nystatin [Nyamyc] 100,000 unit/gram Powder 1 applic topical BID Qty: 0 0RF Protocol: *Topical Application Instructions APPLICATION INSTRUCTIONS: UNDER DI BREASTS Petrolatum 33% [Eucerin Eqivalent] 1 applic topical BID Qty: 0 0RF tolterodine 2 mg Capsule,Extended Release 24hr 2 mg PO DAILY Qty: 0 0RF triamcinolone acetonide 0.1 % Ointment 1 applic topical BID Qty: 0 0RF Protocol: *Topical Application Instructions APPLICATION INSTRUCTIONS: Abdominal rash. Continued ergocalciferol (vitamin D2) [Vitamin D2] 1,250 mcg (50,000 unit) capsule 1,250 mcg PO QWEEK Patient Comments: take 1 capsule by mouth every week levothyroxine 112 mcg tablet 125 mcg PO DAILY Patient Comments: TAKE 1 TABLET BY MOUTH EVERY DAY baclofen 10 mg tablet 10 mg PO DAILY buspirone 5 mg tablet 5 mg PO BID PRN (Reason: anxiety) hydralazine 25 mg tablet 25 mg PO TID insulin glargine 100 unit/mL solution 19 unit subcut DAILY insulin lispro [Humalog KwikPen Insulin] 100 unit/mL insulin pen 10 unit subcut TID melatonin 3 mg capsule 3 mg PO QHS paroxetine HCl [Paxil] 20 mg tablet 20 mg PO DAILY pramipexole 0.125 mg tablet 0.25 mg PO QHS amlodipine 10 mg tablet 10 mg PO DAILY Qty: 90 3RF Discontinued pramipexole 1 mg tablet 2 mg PO QHS Patient Comments: TAKE 2 TABLETS BY MOUTH EVERY NIGHT meloxicam 15 mg tablet 15 mg PO DAILY Patient Comments: TAKE 1 TABLET BY MOUTH EVERY DAY hydroxyzine HCl 25 mg tablet 25 mg PO TID PRN (Reason: anxiety) Patient Comments: take 1 tablet by mouth every 8 hours if needed lisinopril 40 mg tablet 40 mg PO DAILY zolpidem 12.5 mg tablet,ext release multiphase 12.5 mg PO QHS Patient Comments: take 1 tablet by mouth nightly if needed for sleep acetaminophen [Tylenol] 325 mg tablet 650 mg PO Q6H PRN (Reason: Pain 1-3) albuterol sulfate 90 mcg/actuation HFA aerosol inhaler 2 inh INHALATION Q6H PRN (Reason: shortness of breath or wheezing) Patient Comments: INHALE 2 PUFFS INTO LUNGS 4 TIMES A DAY NEEDD FOR WHEEZING rosuvastatin 10 mg tablet 10 mg PO DAILY torsemide 20 mg tablet 20 mg PO BID Tresiba FlexTouch U-100 100 unit/mL (3 mL) insulin pen 22 unit SUBCUT BID Qty: 0 0RF insulin aspart U-100 [Novolog FlexPen U-100 Insulin] 100 unit/mL (3 mL) insulin pen 18 unit SUBCUT BID Qty: 0 0RF Patient Comments: INJECT 14 UNITS INTO THE SKIN 4 TIMES DAILY spironolactone 25 mg tablet 25 mg PO DAILY Qty: 30 10RF Referrals / Follow Up: Shine Rojas DPM [Med Staff - Active Staff] - Shiv Lopez MD [Primary Care Provider] - Disposition Disposition (needs filled in before D/C Order can be placed): NonSkilled NH/Intermed Care 03/15/231933 <Electronically signed by Baljit Jaffe MD> Cosigner Signature (if applicable): CC: Dr. Shiv Lopez MD; Dr. Baljit Jaffe MD~ Signed ADDENDUM by Dr. Baljit Jaffe MD on 03/17/23 at 1545 Addendum Cellulitis/lymphedema bilateral lower extremity - culture sent from blister, recommend Kerlix, Bela wraps, bilateral lower extremities. Elevated legs in bed with 3 pillows. Rx Doxycycline 100mg bid x 10 days, Rx Bactrim DS 1 tablet bid x 10 days, culture pending at [facility] lab. 03/17/235<Electronically signed by Baljit Jaffe MD> Cosigner Signature (if applicable): cc: Dr. Shiv Lopez MD; Dr. Baljit Jfafe MD ~* Signed [facility] Work Phone: 1(283) 945-635609-27-2023 Discharge summary Author Baljit Jaffe [facility] March 15, 2023 7:35pm Note Date/Time March 15, 2023 7:35pm [facility] Medical Records Department [address] [place] [address] Transfer to [facility] MR#: [id number] Acct: [id number] Name: RADHA SANDOVAL Rep #:[id number] : 1945 77 From: Baljit Jaffe MD PCP: Dr. Shiv Lopez MD Status:ADM IN Certification of patient admission REQUIRED AT TIME OF ADMISSION. I CERTIFY THAT POST-HOSPITAL ECF SERVICES ARE REQUIRED TO BE GIVEN ON AN IN-PATIENT BASIS BECAUSE OF THE ABOVE NAMED PATIENT'S NEED FOR SHELTER CARE ON A CONTINUING BASIS FOR THE CONDITION(S) FOR WHICH HE/SHE WAS RECEIVING IN-PATIENT HOSPITAL SERVICES PRIOR TO HIS/HER TRANSFER TO THE [facility]. 03/15/231934<Electronically signed by Baljit Jaffe MD> Diet Diet Order/Speech Therapy: 03/04/23 14:56 Diet: Consistent Carb - Calorie Controlled Dietary Modifications:: Sodium Restricted Consistent Carbohydrate Is pt able to select menu?: Yes How many daily calories?: 1600 calorie Routine Orders/Code Status Code Status: Full Code Wound(s) right buttocks: Wound Type: Pressure Injury Dressing Change: calmoseptine BLE: Wound Type: Abrasion BUE: Wound Type: Abrasion Therapies Weight Bearing: Weight bearing as tolerated Extremity Affected:: Bilateral Lower Physical Therapy: Eval and Treat Occupational Therapy: Eval and Treat Problem/Diagnosis (1) Type 2 diabetes mellitus with diabetic polyneuropathy: Status: Acute Code(s): E11.42 - Type 2 diabetes mellitus with diabetic polyneuropathy (2) Acquired lymphedema: Status: Acute Code(s): I89.0 - Lymphedema, not elsewhere classified (3) Tinea unguium: Status: Acute Code(s): B35.1 - Tinea unguium (4) Pain in right toe(s): Status: Acute Code(s): M79.674 - Pain in right toe(s) (5) Pain in left toe(s): Status: Acute Code(s): M79.675 - Pain in left toe(s) Plan 77 year old female with below past medical history hospitalized for weakness, urinary tract infection, low back pain, admitted to TCU with debility, here for rehabilitation, strengthening, prior to discharge home alone. * Debility - PT/OT. * Pain - Tylenol 1000mg Q6h prn pain (1-10). * Bowel - senna/colace 1 tablet bid, Magnesium citrate 300ml daily prn. * Adult immunization - Administer pneumonia vaccine, covid19 vaccine, flu vaccine as appropriate. * DVT prophylaxis - Lovenox 40mg sc daily. * Shortness of breath - Albuterol 2 puffs q6h prn. * Hypertension - Amlodipine 10mg daily, Hydralazine 25mg tid. * Hyperlipidemia - Atorvastatin 20mg qhs. * Muscle spasm - Baclofen 10mg daily. 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 * Vitamin D deficiency - D2 50,000 units per week. * Nutrition - Glucerna shake 120ml po tidcm. * Diabetes Mellitus II - Glargine 19 units daily, Lispro 10 units tidac. * Hypothyroidism - Levothyroxine 125mcg daily. * Insomnia - Melatonin 3mg qhs. * Skin irritation - Calmoseptine topical bid. * Tinea Corporis - Nystatin powder topical bid, Mycolog topical bid. * Depression - Paroxetine 20mg qhs, stable chronic mcfp use, GDR not recommended. * Restless Leg syndrome - Mirapex 0.25mg qhs. Allergies/Procedures Done in Hospital Allergies aspirin [From Percodan] Allergy (Verified 01/26/21 08:43) Other oxycodone [From Percodan] Allergy (Verified 01/26/21 08:43) Other vancomycin Allergy (Verified 01/26/21 08:43) Rash Procedures: None Type of Care/Length of Stay Estimated LOS: Convalescent Care Less Than 30 days Type of Care Needed: Intermediate Rehab Potential: Good Prognosis: Good Additional Orders/Day of Discharge Day of Discharge: 03/18/23 Dietary and Speech Recommendations Dietitian Recommendations/Changes: Will continue 1600 jerry CHO controlled / Sodium restricted Will discontinue 120 ml glucerna shake tid w/ medpass as no longer indicated Will continue to follow and monitor for changes in res nutritional status and need for additional recommendations Discharge Plan Admission Admit Date/Time: 03/03/23 13:30 Primary Reason for Your Visit: Debility. Attending Provider: Baljit Jaffe Chi Primary Care Provider: Shiv Lopez Consulting Providers: Omar Huitron Instructions Additional Instructions / Restrictions: Discharge to [facility] 03/18/2023, intermediate, Part B therapies. Discharge Orders/Prescriptions Prescriptions: New acetaminophen 500 mg Tablet 1,000 mg PO Q6H PRN (Reason: Pain 1-10) Qty: 0 0RF furosemide 40 mg Tablet 40 mg PO DAILY 4 Days Qty: 0 0RF atorvastatin 20 mg Tablet 20 mg PO QHS Qty: 0 0RF ammonium lactate 12 % Lotion 1 applic topical BID Qty: 0 0RF Protocol: *Topical Application Instructions APPLICATION INSTRUCTIONS: apply to bilateral lower extremities 1-2 times per day cephalexin 500 mg Capsule 500 mg PO Q6 4 Days Qty: 0 0RF hydroxyzine pamoate 25 mg Capsule 50 mg PO TID PRN PRN (Reason: ITCHING/ANXIETY) Qty: 0 0RF menthol-zinc oxide [Calmoseptine] 0.44-20.6 % Ointment 1 applic topical BID Qty: 0 0RF Protocol: *Topical Application Instructions APPLICATION INSTRUCTIONS: DI BUTTOCKS/COCCYX sennosides-docusate sodium [Stool Softener-Stimulant Laxat] 8.6-50 mg Tablet 1 tab PO BID Qty: 0 0RF nystatin [Nyamyc] 100,000 unit/gram Powder 1 applic topical BID Qty: 0 0RF Protocol: *Topical Application Instructions APPLICATION INSTRUCTIONS: UNDER DI BREASTS Petrolatum 33% [Eucerin Eqivalent] 1 applic topical BID Qty: 0 0RF tolterodine 2 mg Capsule,Extended Release 24hr 2 mg PO DAILY Qty: 0 0RF triamcinolone acetonide 0.1 % Ointment 1 applic topical BID Qty: 0 0RF Protocol: *Topical Application Instructions APPLICATION INSTRUCTIONS: Abdominal rash. Continued ergocalciferol (vitamin D2) [Vitamin D2] 1,250 mcg (50,000 unit) capsule 1,250 mcg PO QWEEK Patient Comments: take 1 capsule by mouth every week levothyroxine 112 mcg tablet 125 mcg PO DAILY Patient Comments: TAKE 1 TABLET BY MOUTH EVERY DAY baclofen 10 mg tablet 10 mg PO DAILY buspirone 5 mg tablet 5 mg PO BID PRN (Reason: anxiety) hydralazine 25 mg tablet 25 mg PO TID insulin glargine 100 unit/mL solution 19 unit subcut DAILY insulin lispro [Humalog KwikPen Insulin] 100 unit/mL insulin pen 10 unit subcut TID melatonin 3 mg capsule 3 mg PO QHS paroxetine HCl [Paxil] 20 mg tablet 20 mg PO DAILY pramipexole 0.125 mg tablet 0.25 mg PO QHS amlodipine 10 mg tablet 10 mg PO DAILY Qty: 90 3RF Discontinued pramipexole 1 mg tablet 2 mg PO QHS Patient Comments: TAKE 2 TABLETS BY MOUTH EVERY NIGHT meloxicam 15 mg tablet 15 mg PO DAILY Patient Comments: TAKE 1 TABLET BY MOUTH EVERY DAY hydroxyzine HCl 25 mg tablet 25 mg PO TID PRN (Reason: anxiety) Patient Comments: take 1 tablet by mouth every 8 hours if needed lisinopril 40 mg tablet 40 mg PO DAILY zolpidem 12.5 mg tablet,ext release multiphase 12.5 mg PO QHS Patient Comments: take 1 tablet by mouth nightly if needed for sleep acetaminophen [Tylenol] 325 mg tablet 650 mg PO Q6H PRN (Reason: Pain 1-3) albuterol sulfate 90 mcg/actuation HFA aerosol inhaler 2 inh INHALATION Q6H PRN (Reason: shortness of breath or wheezing) Patient Comments: INHALE 2 PUFFS INTO LUNGS 4 TIMES A DAY NEEDD FOR WHEEZING rosuvastatin 10 mg tablet 10 mg PO DAILY torsemide 20 mg tablet 20 mg PO BID Tresiba FlexTouch U-100 100 unit/mL (3 mL) insulin pen 22 unit SUBCUT BID Qty: 0 0RF insulin aspart U-100 [Novolog FlexPen U-100 Insulin] 100 unit/mL (3 mL) insulin pen 18 unit SUBCUT BID Qty: 0 0RF Patient Comments: INJECT 14 UNITS INTO THE SKIN 4 TIMES DAILY spironolactone 25 mg tablet 25 mg PO DAILY Qty: 30 10RF Referrals / Follow Up: Shine Rojas DPM [Med Staff - Active Staff] - Shiv Lopez MD [Primary Care Provider] - Disposition Disposition (needs filled in before D/C Order can be placed): NonSkilled NH/Intermed Care 03/15/231934 <Electronically signed by Baljit Jaffe MD> Cosigner Signature (if applicable): CC: ALEXI Huitron; Dr. Shiv Lopez MD ~ [facility] Work Phone: [phone]) 757-684309-27-2023 NotePlease send her immunization record [facility]09-20-2023 Consult note Author Shine Rojas [facility] March 08, 2023 11:33am Note Date/Time March 08, 2023 11:33am [facility] Medical Records Department [address] [place] [id number] Consultation 03/08/23 1130 MR#: [id number] Acct: [id number] Name: RADHA SANDOVAL Rep #:[id number] : 1945 77 From: Shine Rojas DPM PCP: Dr. Shiv Lopez MD Status:ADM IN Location: [place] [address] Assessment & Plan Assessment/Plan (1) Type 2 diabetes mellitus with diabetic polyneuropathy: PLAN: Patient examined evaluated. Recommend compression elevation exercise for edema management. We will order ammonium lactate to bilateral lower extremity daily application. Toenails x10 debrided in length and thickness without incident using sterile nail nippers. Patient follow-up outpatient for nail care (2) Acquired lymphedema: (3) Tinea unguium: (4) Pain in right toe(s): (5) Pain in left toe(s): HPI Consult Data Date of Consult: 03/08/23 HPI Narrative HPI Narrative: RADHA SANDOVAL, is a 77 F who was seen bedside for nail care in setting of type 2 diabetes neuropathy and lymphedema. Patient notes pain toenails 1 through 5 bilaterally. Patient has history of lymphedema with stasis dermatitis to bilateral lower extremities. Decently controlled today not causing patient any issues. [facility] Medical History Anemia Arthritis Chronic pain Chronic venous insufficiency Combined hyperlipidemia Depression Diabetes mellitus Hyperlipidemia Hypertension Hypothyroidism Hypothyroidism Leg edema Leg swelling Mild pulmonary arterial systolic hypertension Mitral valve annular calcification Non-smoker Rheumatoid arthritis Right ventricular dilation Home Medications ergocalciferol (vitamin D2) 1,250 mcg (50,000 unit) capsule (Vitamin D2) 1,250 mcg PO QWEEK Supplement 12/23/20 [History Last Taken 03/03/23 08:00] hydroxyzine HCl 25 mg tablet 25 mg PO TID PRN anxiety 12/23/20 [History Last Taken Unknown] levothyroxine 112 mcg tablet 125 mcg PO DAILY Thyroid 12/23/20 [History Last Taken Unknown] lisinopril 40 mg tablet 40 mg PO DAILY 12/23/20 [History Last Taken Unknown] meloxicam 15 mg tablet 15 mg PO DAILY 12/23/20 [History Last Taken Unknown] pramipexole 1 mg tablet 2 mg PO QHS 12/23/20 [History Last Taken Unknown] zolpidem 12.5 mg tablet,extended release,multiphase 12.5 mg PO QHS 12/23/20 [History Last Taken Unknown] insulin aspart U-100 100 unit/mL (3 mL) subcutaneous pen (Novolog FlexPen U-100 Insulin aspart) 18 unit (0.18 mL) subcut BID #0 mL 01/29/21 [Rx Last Taken Unknown] insulin degludec 100 unit/mL (3 mL) subcutaneous pen (Tresiba FlexTouch U-100 insulin) 22 unit (0.22 mL) subcut BID #0 mL 01/29/21 [Rx Last Taken Unknown] torsemide 20 mg tablet 20 mg PO BID 01/29/21 [History Last Taken Unknown] spironolactone 25 mg tablet 25 mg PO DAILY #30 tabs 03/01/21 [Rx Last Taken Unknown] amlodipine 10 mg tablet 10 mg PO DAILY BP #90 tabs 07/15/21 [Rx Last Taken Unknown] acetaminophen 325 mg tablet (Tylenol) 650 mg PO Q6H PRN Pain 1-3 03/03/23 [History Last Taken Unknown] albuterol sulfate 90 mcg/actuation aerosol inhaler 2 inh inhalation Q6H PRN shortness of breath or wheezing 03/03/23 [History Last Taken Unknown] baclofen 10 mg tablet 10 mg PO DAILY Muscle Spasms 03/03/23 [History Last Taken Unknown] buspirone 5 mg tablet 5 mg PO BID PRN anxiety 03/03/23 [History Last Taken Unknown] hydralazine 25 mg tablet 25 mg PO TID BP 03/03/23 [History Last Taken Unknown] insulin glargine 100 unit/mL subcutaneous solution 19 unit subcut DAILY Jjnipivd02/15/23 [History Last Taken 03/03/23] insulin lispro 100 unit/mL subcutaneous pen (Humalog KwikPen (U-100) Insulin) 10unit subcut TID Diabetes 03/03/23 [History Last Taken Unknown] melatonin 3 mg capsule 3 mg PO QHS Sleep 03/03/23 [History Last Taken Unknown] paroxetine HCl 20 mg tablet (Paxil) 20 mg PO DAILY Mood 03/03/23 [History Last Taken Unknown] pramipexole 0.125 mg tablet 0.25 mg PO QHS Overactive Bladder 03/03/23 [History Last Taken Unknown] rosuvastatin 10 mg tablet 10 mg PO DAILY Cholesterol 03/03/23 [History Last Taken Unknown] Allergy/AdvReac Type Severity Reaction Status Date / Time aspirin [From Percodan] Allergy Other Verified 01/26/21 08:43 oxycodone [From Percodan] Allergy Other Verified 01/26/21 08:43 vancomycin Allergy Rash Verified 01/26/21 08:43 Family History Other Cancer Heart disease Surgical History History of appendectomy History of cholecystectomy History of lung biopsy Social History household members: none Smoking Status: Never smoker alcohol intake: current details: 1 mixed drink every 2 weeks. substance use type: does not use ROS Constitutional Constitutional: Denies difficulty sleeping, excessive sweating or snoring Eyes Eyes: Denies discongugate gaze or periorbital itching ENT HEENT: Denies dizziness, hoarseness or neck mass Cardiovascular Cardiovascular: Denies arrhythmia on telemetry, cyanosis or erythema on extremities Respiratory/Chest Respiratory/Chest: Denies chest tightness, excessive phlegm production or pain on inspiration Physical Exam Narrative Vascular: DP PT pulses palpable 2 out of 4. +1 pitting edema noted to bilaterallower extremity. Bilateral lower extremity erythema noted likely secondary to stasis dermatitis. Neurologic: Light touch protective sensation diminished bilateral feet. Dermatologic: Scaling to bilateral feet. Mid tibial erythema likely suggestive of stasis dermatitis. Skin otherwise intact. Toenails 1, 2, 3, 4, 5 on the right and left foot are elongated thickened with subungual debris. Painful to palpation. Musculoskeletal: No sign DVT. No gross deformity. Muscular strength full. Athetosis noted. Const alert and oriented x3 Lab / Micro Data 03/06/23 11:54 03/06/23 11:54 Labs: Laboratory Results - last 24 hr 03/07/23 11:53: POC Glucose 242 H 03/07/23 17:53: POC Glucose 174 H 03/07/23 21:49: POC Glucose 113 H 03/08/23 06:07: POC Glucose 165 H 03/08/23 11:07: POC Glucose 228 H Micro: Microbiology 03/08/23 06:45 Nasal Secretion SARS-CoV-2 Antigen (Rapid) - Final 03/08/23 1133 <Electronically signed by Shine Rojas DPM> Cosigner Signature (if applicable): CC: Dr. Shiv Lopez MD; Dr. Baljit Jaffe MD~ Signed [facility] Work Phone: [phone]) 502-879209-19-2023 Progress note Author Betty Hicks [facility] March 07, 2023 4:16pm Note Date/Time March 07, 2023 3:00pm [facility] Medical Records Department [address] [place] [address] Progress Note - Pharmacy 03/07/23 1456 MR#: [id number] Acct: [id number] Name: RADHA SANDOVAL Rep #:[id number] : 1945 77 From: Betty Hicks PCP: Dr. Shiv Lopez MD Status:ADM IN Location: [facility] TCU RX Drug Regimen Review Subjective/Objective Subjective/Objective: Subjective: 77 YOF admitted to [facility] hospitalization from an outside facility on 02/27/23. Patient was admitted to the hospital for UTI/weakness/dysuria. Admitted 03/03/23 to TCU for strengthening and rehabilitation prior to discharge home where she resides alone. Objective: Allergies aspirin [From Percodan] Allergy (Verified 01/26/21 08:43) Other oxycodone [From Percodan] Allergy (Verified 01/26/21 08:43) Other vancomycin Allergy (Verified 01/26/21 08:43) Rash Current Medications Generic Name Dose Route Start Last Admin Trade Name Freq PRN Reason Stop Dose Admin Acetaminophen 1,000 mg 03/03/23 16:51 03/07/23 06:43 Acetaminophen 500 Mg Tablet PO 1,000 mg Q6H PRN Administration Pain 1-10 Albuterol Sulfate 2 puff 03/03/23 16:15 Albuterol Ih (6.7 Gm) 1 Puff Inhaler INHALATION Q6H PRN shortness of breath or wheezing Amlodipine Besylate 10 mg 03/04/23 10:00 03/07/23 08:54 Amlodipine 10 Mg Tablet PO 10 mg DAILY PRATIK Administration Atorvastatin Calcium 20 mg 03/03/23 22:00 03/06/23 20:52 Atorvastatin Calcium 20 Mg Tablet PO 20 mg QHS PRATIK Administration Baclofen 10 mg 03/04/23 08:00 03/07/23 08:52 Baclofen 10 Mg Tablet PO 10 mg DAILYCM PRATIK Administration Buspirone HCl 5 mg 03/03/23 16:01 03/06/23 22:26 Buspirone 5 Mg Tablet PO 5 mg BID PRN Administration anxiety Calamine/Phenol 1 applic 03/03/23 22:00 03/07/23 08:52 Menthol/Lanolin/Calamine/Znox 113 Gm Tube TOPICAL 1 applic BID PRATIK Administration Protocol Enoxaparin Sodium 40 mg 03/04/23 06:00 03/07/23 06:43 Enoxaparin 40 Mg/0.4 Ml Syringe SC 40 mg DAILY@0600 PRATIK Administration Ergocalciferol 1.25 mg 03/10/23 08:00 Ergocalciferol 1.25 Mg (50, 000 Unit) Capsule PO QWEEK PRATIK Hydralazine HCl 25 mg 03/03/23 22:00 03/07/23 14:08 Hydralazine 25 Mg Tablet PO 25 mg TID PRATIK Administration Hydroxyzine Pamoate 25 mg 03/07/23 08:07 03/07/23 14:50 Hydroxyzine Juanita 25 Mg Capsule PO 25 mg TID PRN PRN Administration ITCHING/ANXIETY Insulin Glargine 19 unit 03/04/23 10:00 03/07/23 08:52 Insulin Glargine-Yfgn 100 Unit/Ml Pen SC 19 unit DAILY PRATIK Administration Insulin Human Lispro 10 unit 03/03/23 16:45 03/07/23 11:54 Insulin Lispro 100 Unit/Ml Insuln.Pen SC 10 unit TIDAC PRATIK Administration Levothyroxine Sodium 125 mcg 03/04/23 06:00 03/07/23 06:43 Levothyroxine 125 Mcg Tablet PO 125 mcg DAILY@0600 PRATIK Administration Magnesium Citrate 300 ml 03/03/23 16:40 Magnesium Citrate 300 Ml PO DAILY PRN CONSTIPATION Melatonin 3 mg 03/03/23 22:00 03/06/23 20:54 Melatonin 3 Mg Tablet PO 3 mg QHS PRATIK Administration Nutritional Formula (Lactose Free) 120 ml 03/03/23 17:45 03/07/23 11:48 Glucerna Shake 120 Ml Liquid PO 120 ml TIDCM PRATIK Administration Nystatin 1 applic 03/03/23 22:00 03/07/23 08:54 Nystatin Powder 30 Gm Bottle TOPICAL 1 applic BID [facility] Administration Protocol Nystatin/Triamcinolone Acetonide 1 applic 03/03/23 22:00 03/07/23 08:53 Nystatin/Triamcin Cream Tube TOPICAL 1 applic BID [facility] Administration Protocol Paroxetine HCl 20 mg 03/04/23 10:00 03/07/23 08:54 Paroxetine 20 Mg Tablet PO 20 mg DAILY PRATIK Administration Pramipexole Dihydrochloride 0.25 mg 03/03/23 22:00 03/06/23 20:54 Pramipexole Di-Hcl 0.25 Mg Tablet PO 0.25 mg QHS PRATIK Administration Senna/Docusate Sodium 1 tablet 03/03/23 22:00 03/07/23 08:54 Senna/Docusate Sodium 1 Tablet PO 1 tablet BID PRATIK Administration Tolterodine Tartrate 2 mg 03/07/23 10:00 03/07/23 08:57 Tolterodine Tartrate 2 Mg Cap.Sa PO 2 mg DAILY PRATIK Administration Tuberculin PPD 0.1 ml 03/11/23 10:00 Tuberculin,Purif.Prot.Deriv. 50 Tu/Ml Vial ID 03/11/23 10:01 X1 ONE Problem List (Updated 03/03/23 @ 15:[address] Baljit Jaffe MD) Insomnia (Acute) Restless leg syndrome (Acute) Depression (Acute) Edema (Acute) Urinary tract infection (Acute) Debility (Acute) Hypothyroidism (Acute) Hypertension (Chronic) Rheumatoid arthritis (Acute) Diabetes mellitus (Acute) Vital Signs Temp Pulse Resp BP Pulse Ox O2 Del Method 97.9 F 89 16 157/68 H 98 Room Air 03/06/23 14:59 03/07/23 14:08 03/06/23 14:59 03/07/23 14:08 03/06/23 14:59 03/06/23 14:59 Oxygen Delivery Method Room Air Weight: 105.715 kg Body Mass Index (BMI) 36.5 Sodium 133 mmol/L (136-145) L 03/06/23 11:54 Potassium 4.7 mmol/L (3.5-5.1) 03/06/23 11:54 Chloride 100 mmol/L (98-107) 03/06/23 11:54 Carbon Dioxide 24.0 mmol/L (21.0-32.0) 03/06/23 11:54 Anion Gap 9 (5-15) 03/06/23 11:54 BUN 48 mg/dL (7-18) H 03/06/23 11:54 Creatinine 1.32 mg/dL (0.55-1.02) H 03/06/23 11:54 Est GFR (MDRD) Af Amer 50 mL/min (>60) L 03/06/23 11:54 Est GFR (MDRD) Non-Af 41 mL/min (>60) L 03/06/23 11:54 BUN/Creatinine Ratio 36.4 RATIO (10-20) H 03/06/23 11:54 Glucose 286 mg/dL (74-106) H 03/06/23 11:54 Assessment/Plan: 1. Pain: Tylenol 1000mg PO Q6h PRN pain 1-10. Please continue to montior for increased/decreased S/S pain, PRN medication usage. - To date, the patient has had 3 doses of Tylenol since admission. Premedication pain rated 6-8/10, post-med pain rated 0-4. It appears the patient's pain is being managed at this time. 2. HTN/HLD: Norvasc 10mg PO daily, Lipitor 20mg PO QHS, Hydralazine 25mg PO TID.Please continue to monitor BP (range 120-166/60-76), lipid panel annually or sooner if clinically indicated, muscle soreness, lower extremity edema. 3. Type II Diabetes: Glargine 19 units SC Daily, Humalog 10 unit SC TIDCM. Please continue to monitor BG levels (Range 146-277), A1c (none on file), S/S hypoglycemia. 4. Hypothyroidism: Synthroid 125mcg PO Daily. Please continue to monitor thyroidfunction as clinically indicated, monitor for S/S hypothyroidism. 5. RLS: Pramipexole 0.25mg PO QHS. Please continue to monitor for medication effectiveness, dizziness, confusion. 6. Muscle Spasm: Baclofen 10mg PO daily. Please continue to monitor for weakness, nausea, dizziness, medication effectiveness. 7. Urinary: Detrol 2mg PO daily. Please continue to monitor urinary frequency/urgency, urinary retention. 8. DVT Prophylaxis: Lovenox 40mg SC Daily. Please continue to monitor for S/S bleeding/bruising, CrCl (last 33mL/min on 03/06). 9. SOB: Albuterol 2 puff Q6h PRN. Please continue to monitor HR, PRN medication use, medication effectiveness. 10. Vitamin D Deficiency: Ergocalciferol 1.25mg PO Weekly. Please continue to monitor Vitamin D levels as clinically indicated. 11. Insomnia: melatonin 3mg PO QHS. Please continue to monitor for medication effectiveness, oversedation. If medication appears ineffective, consider administering medication at least 2hrs prior to desired bedtime to allow medication to be effective. 12. Skin Integrity: Calmoseptine topically BID, Nystatin Powder topically BID, Mycolog topical cream BID. Please continue to monitor for skin irritation, skin redness, skin breakdown. 13. Bowel: Senna/Docusate 1 tab PO BID, Magnesium Citrate 300mL PO Daily PRN. Please continue to monitor for increased/decreased constipation and/or diarrhea. - The patient' last BM was documented on 03/05/23. Please continue to monitor. Assessment/Plan for indications treated with psychotropic medications: 14. Depression: Paxil 20mg PO QHS. This is a [employer] Criteria medication which can cause oversedation and drowsiness in patients older than 65. Please continueto monitor closely. Please consider a GDR by 08/2023 if clinically indicated, thank you. 15. Anxiety: Buspar 5mg PO BID PRN, Hydroxyzine 25mg PO TID PRN. Please continueto monitor PRN use, medication effectiveness. Please consider a GDR by 08/2022 ifclinically indicated, thank you. Medical chart and medication regimen reviewed. The following medication irregularities or issues were identified: *1. Hyperlipidemia: The patient does not have a lipid panel on file per EMR review. Please consider ordering a lipid panel if clinically indicated, thank you. *2. Type II DM: Patient's BG levels have been elevated. Please consider increasing daily insulin doses if clinically indicated. Also, please consider obtaining an A1c as there is not one on file per EMR review, thank you. *3. Vitamin D Deficiency: The patient's last Vitamin D level on file is from 2020. Please consider ordering a Vitamin D level if clinically indicated, thank you. *4. Hypothyroidism: No TSH level on file. Please consider obtaining level if clinically indicated, thank you. Date Date of Note:: 03/07/23 03/07/23 1616 <Electronically signed by Betty Hicks> Betty Hicks Cosigner Signature (if applicable): CC: ~ Signed [facility] Work Phone: 1(849) 411-305809-15-2023 History and physical note Author Baljit Jaffe [facility] March 03, 2023 4:39pm Note Date/Time March 03, 2023 3:08pm [facility] Medical Records Department [address] [place] [address] History & Physical Exam 03/03/23 1501 MR#: [id number] Acct: [id number] Name: RADHA SANDOVAL Rep #:[id number] : 1945 77 From: Baljit Jaffe MD PCP: Dr. Shiv Lopez MD Status:ADM IN Location: [facility] TCU06-1 HPI - General General Date of Admission: 03/03/23 Date of Service: 03/03/23 Chief Complaint: Here for rehabilitation. HPI Narrative RADHA SANDOVAL, is a 77 Female who presents with followin02/27/2023 Dr. Shiv Lopez prescribed Augmentin for dysuria, polyuria, low back pain for urinary tract infection. Augmentin not started, symptoms worse, patient presented to ED. 02/28/2023 Admit to [facility]. Low back pain, dysuria, polyuria, weakness. Diabetes with hyperglycemia, weakness, urinary tract infection. IV antibiotics for urinary tract infection. IV fluids, sliding scale insulin for Diabetes Mellitus II. PT/OT for weakness. 03/01/2023 Feels better, weak, pain improved. Continue IV antibiotics. 03/03/2023 Admit to TCU with debility, here for rehabilitation, strengthening, prior to discharge home alone. [facility] Medical History Anemia Arthritis Chronic pain Chronic venous insufficiency Combined hyperlipidemia Depression Diabetes mellitus Hyperlipidemia Hypertension Hypothyroidism Hypothyroidism Leg edema Leg swelling Mild pulmonary arterial systolic hypertension Mitral valve annular calcification Non-smoker Rheumatoid arthritis Right ventricular dilation Home Medications ergocalciferol (vitamin D2) 1,250 mcg (50,000 unit) capsule (Vitamin D2) 1,250 mcg PO QWEEK Supplement 12/23/20 [History Last Taken 03/03/23 08:00] hydroxyzine HCl 25 mg tablet 25 mg PO TID PRN anxiety 12/23/20 [History Last Taken Unknown] levothyroxine 112 mcg tablet 125 mcg PO DAILY Thyroid 12/23/20 [History Last Taken Unknown] lisinopril 40 mg tablet 40 mg PO DAILY 12/23/20 [History Last Taken Unknown] meloxicam 15 mg tablet 15 mg PO DAILY 12/23/20 [History Last Taken Unknown] pramipexole 1 mg tablet 2 mg PO QHS 12/23/20 [History Last Taken Unknown] zolpidem 12.5 mg tablet,extended release,multiphase 12.5 mg PO QHS 12/23/20 [History Last Taken Unknown] insulin aspart U-100 100 unit/mL (3 mL) subcutaneous pen (Novolog FlexPen U-100 Insulin aspart) 18 unit (0.18 mL) subcut BID #0 mL 01/29/21 [Rx Last Taken Unknown] insulin degludec 100 unit/mL (3 mL) subcutaneous pen (Tresiba FlexTouch U-100 insulin) 22 unit (0.22 mL) subcut BID #0 mL 01/29/21 [Rx Last Taken Unknown] torsemide 20 mg tablet 20 mg PO BID 01/29/21 [History Last Taken Unknown] spironolactone 25 mg tablet 25 mg PO DAILY #30 tabs 03/01/21 [Rx Last Taken Unknown] amlodipine 10 mg tablet 10 mg PO DAILY BP #90 tabs 07/15/21 [Rx Last Taken Unknown] acetaminophen 325 mg tablet (Tylenol) 650 mg PO Q6H PRN Pain 1-3 03/03/23 [History Last Taken Unknown] albuterol sulfate 90 mcg/actuation aerosol inhaler 2 inh inhalation Q6H PRN shortness of breath or wheezing 03/03/23 [History Last Taken Unknown] baclofen 10 mg tablet 10 mg PO DAILY Muscle Spasms 03/03/23 [History Last Taken Unknown] buspirone 5 mg tablet 5 mg PO BID PRN anxiety 03/03/23 [History Last Taken Unknown] hydralazine 25 mg tablet 25 mg PO TID BP 03/03/23 [History Last Taken Unknown] insulin glargine 100 unit/mL subcutaneous solution 19 unit subcut DAILY Nzcrndyc92/15/23 [History Last Taken 03/03/23] insulin lispro 100 unit/mL subcutaneous pen (Humalog KwikPen (U-100) Insulin) 10unit subcut TID Diabetes 03/03/23 [History Last Taken Unknown] melatonin 3 mg capsule 3 mg PO QHS Sleep 03/03/23 [History Last Taken Unknown] paroxetine HCl 20 mg tablet (Paxil) 20 mg PO DAILY Mood 03/03/23 [History Last Taken Unknown] pramipexole 0.125 mg tablet 0.25 mg PO QHS Overactive Bladder 03/03/23 [History Last Taken Unknown] rosuvastatin 10 mg tablet 10 mg PO DAILY Cholesterol 03/03/23 [History Last Taken Unknown] Allergy/AdvReac Type Severity Reaction Status Date / Time aspirin [From Percodan] Allergy Other Verified 01/26/21 08:43 oxycodone [From Percodan] Allergy Other Verified 01/26/21 08:43 vancomycin Allergy Rash Verified 01/26/21 08:43 Family History Other Cancer Heart disease Surgical History History of appendectomy History of cholecystectomy History of lung biopsy Social History household members: none Smoking Status: Never smoker alcohol intake: current details: 1 mixed drink every 2 weeks. substance use type: does not use ROS Constitutional Constitutional: Denies chills, fever(s) or weight gain ENT HEENT: Denies headache(s), nasal congestion or nasal discharge Cardiovascular Cardiovascular: Denies chest pain or palpitations Respiratory/Chest Respiratory/Chest: Denies cough, excessive phlegm production or shortness of breath with exertion Gastrointestinal Gastrointestinal: Denies abdominal pain, nausea or vomiting Genitourinary Genitourinary: Denies dysuria Musculoskeletal Musculoskeletal: Denies joint pain or joint swelling Integumentary Integumentary: Denies rash or wounds Neurologic Neurologic: Denies focal weakness, numbness or tingling Psychiatric Psychiatric: Denies anxiety, auditory hallucinations, depression, homicidal ideation or suicidal ideation Physical Exam Const alert General Appearance: cooperative HEENT normocephalic Eyes PERRL and EOMs intact bilaterally Neck supple, no JVD and no carotid bruits Resp normal respiratory effort, normal air movement and clear to auscultation bilaterally Cardio regular rate and regular rhythm GI normal to inspection, nondistended, normoactive bowel sounds, non-tender and non-distended Extremity normal capillary refill General Extremity: Negative for edema Skin no rashes or lesions noted General Skin Exam: no breakdown Psych affect normal Appearance: appropriate Assessment & Plan Assessment/Plan (1) Debility: (2) Urinary tract infection: (3) Hypertension: (4) Rheumatoid arthritis: (5) Diabetes mellitus: (6) Edema: (7) Hypothyroidism: (8) Depression: (9) Restless leg syndrome: (10) Insomnia: PLAN: Plan 77 year old female with below past medical history hospitalized for weakness, urinary tract infection, low back pain, admitted to TCU with debility, here for rehabilitation, strengthening, prior to discharge home alone. * Debility - PT/OT. * Pain - Tylenol 1000mg Q6h prn pain (1-10). * Bowel - senna/colace 1 tablet bid, Magnesium citrate 300ml daily prn. * Adult immunization - Administer pneumonia vaccine, covid19 vaccine, flu vaccine as appropriate. * DVT prophylaxis - Lovenox 40mg sc daily. * Shortness of breath - Albuterol 2 puffs q6h prn. * Hypertension - Amlodipine 10mg daily, Hydralazine 25mg tid. * Hyperlipidemia - Atorvastatin 20mg qhs. * Muscle spasm - Baclofen 10mg daily. 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 * Vitamin D deficiency - D2 50,000 units per week. * Nutrition - Glucerna shake 120ml po tidcm. * Diabetes Mellitus II - Glargine 19 units daily, Lispro 10 units tidac. * Hypothyroidism - Levothyroxine 125mcg daily. * Insomnia - Melatonin 3mg qhs. * Skin irritation - Calmoseptine topical bid. * Tinea Corporis - Nystatin powder topical bid, Mycolog topical bid. 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 * Restless Leg syndrome - Mirapex 0.25mg qhs. 03/03/23 8465 <Electronically signed by Baljit Jaffe MD> Cosigner Signature (if applicable): CC: Dr. Shiv Lopez MD; Dr. Baljit Jaffe MD~ Signed [facility] Work Phone: [phone] 164-429009-15-2023 History of Present illness Narrative* Randi Marquez RN - 03/03/2023 1:08 PM EDT Discharged via ambulance to [facility] * Randi Marquez RN - 03/03/2023 11:19 AM EDT Report called to pippa at [facility] at [phone] * Jelly Paz APRN - PANTOGRAPH I ENGRAVER - 03/02/2023 12:54 PM EDT Images from the original note were not included. Department of Internal Medicine Division of Endocrinology, Diabetes, & Metabolism Endocrinology Note Patient Name: Radha Sandoval : 1945 AGE: 77 y.o. Room/Bed: [facility]/[address] Admission Date: 02/28/2023 Visit Date: 03/02/2023 Reason for Endocrine Consult: DM-Uncontrolled Provider/Team Requesting Consult: Dr. 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 Decrease to Levothyroxine 125 mcg daily ICU goal <180 GMF goal <150 POCT BG ACHS Hypoglycemia per protocol Carb controlled diet ANTICIPATED ENDOCRINE HOME GOING RECOMMENDATIONS: Optimized for Discharge from Endocrine standpoint: No Home Going Endocrine Rx Recommendations-- Humalog - Continue current hospital doses Lantus - Continue current hospital doses Levothyroxine 125 mcg daily before breakfast Patient to discharge to SNF [facility] Outpt Follow Up-- PCP SUBJECTIVE/HPI: CHIEF COMPLAINT: Chief Complaint Patient presents with Back Pain Patient presents for lower back pain and burning and pain with urination. WBC: 13.8 Patient alert and oriented sitting up in bed. Patient reports she lives alone and manages insulin independently. Keeps insulin in fridge. Does not miss doses of insulin Checks blood sugars regularly and recently blood sugars have been in 400s. Eats three meals daily: Breakfast 10 am, Lunch 2 pm, Dinner: 8 pm Latest Reference Range & Units 03/02/23 04:00 T4, FREE 0.78 - 2.19 ng/dL 3.28 (H) (H): Data is abnormally high Latest Reference Range & Units 02/28/23 14:12 pH, Urine 5.0 - 8.0 pH 5.0 Clarity, Urine Clear Turbid ! Color, Urine Lt. Yellow Light Yellow WBC Clumps, Urine Negative /HPF Occasional ! Squamous Epithelial, Urine 3 - 5 /HPF 3-5 Bacteria, Urine Negative /HPF Moderate ! RBC, Urine 0 - 2 /HPF 0-2 WBC, Urine 0 - 5 /HPF 11-25 ! Urobilinogen, Urine Normal (0-1) mg/dL Normal Ketones, Urine Negative mg/dL Negative Blood, Urine Negative mg/dL Negative Glucose, Urine Normal (<70) mg/dL >1,000 ! Bilirubin, Urine Negative mg/dL Negative Protein, Urine Negative mg/dL 20 ! Nitrite, Urine Negative Positive ! LEUKOCYTE ESTERASE Negative Sandeep/uL 250 ! !: Data is abnormal Acquired lymphedema Allergic Anxiety Arthritis Asthma Candidiasis of vulva and vagina CKD (chronic kidney disease) Depression Dietary counseling and surveillance Hyperlipidemia Hyperparathyroidism (HCC) Hypertension Hypothyroidism Malaise and fatigue Morbid obesity (HCC) Muscle weakness Nevus, non-neoplastic Pain in limb Pure hypercholesterolemia RLS (restless legs syndrome) Type 2 diabetes mellitus (HCC) Varicella Glucose Date/Time Value Ref Range Status 03/02/2023 11:55 AM 214 (H) 70 - 100 mg/dL Final 03/02/2023 08:18 AM 141 (H) 70 - 100 mg/dL Final 03/01/2023 08:32 PM 194 (H) 70 - 100 mg/dL Final 03/01/2023 05:05 PM 95 70 - 100 mg/dL Final 03/01/2023 11:22 AM 153 (H) 70 - 100 mg/dL Final 03/01/2023 07:35 AM 172 (H) 70 - 100 mg/dL Final Type of DM: 2 Onset of DM: 1st diagnosed in her late 40's Home DM Medication Regimen: Humalog 16 units ACHS DM control (last A1c/glucose data): Lab Results Component Value Date HGBA1C 12.6 (H) 03/01/2023 Diabetes Medications patient has been on overtime: Metformin- since diagnosis. She has been having diarrhea in [id number], smt severe Glimepiride- started in 2015 Trulicity started in November 2017 lantus Humalog Thyroid disorder: Postoperative Hypothyroidism Onset of thyroid disorder: Unknown Home regimen: LT4 150 mcg daily Biotin use: No Patient reports thyroid surgery in her distant past but can not recall why or if they performed total thyroidectomy. Patient has been on LT4 since surgery. She reports taking Levothyroxine nightly with other medications. Patient has been taking LT4 in this way for a number of years Review of Systems Constitutional: Negative for fatigue. Respiratory: Negative for shortness of breath. Cardiovascular: Negative for chest pain. Endocrine: Negative for polydipsia, polyphagia and polyuria. Skin: Positive for wound. All other systems reviewed and are negative. ROS negative except for those mentioned in HPI. OBJECTIVE: Vitals: 03/01/23 0834 03/01/23 0838 03/01/23 2031 03/02/23 0810 BP: (!) 159/54 (!) 151/81 BP Location: Right arm Right arm Patient Position: Lying Sitting Pulse: 78 80 75 78 Resp: 17 18 Temp: 36.6 C (97.8 F) 37.2 C (98.9 F) 37.3 C (99.2 F) TempSrc: Temporal Temporal Temporal SpO2: 93% 93% 95% 93% Physical Exam Vitals and nursing note reviewed. Constitutional: Appearance: She is ill-appearing. HENT: Head: Normocephalic. Eyes: Conjunctiva/sclera: Conjunctivae normal. Cardiovascular: Rate and Rhythm: Normal rate and regular rhythm. Pulses: Normal pulses. Heart sounds: Normal heart sounds. Pulmonary: Effort: Pulmonary effort is normal. No respiratory distress. Skin: General: Skin is warm. Neurological: General: No focal deficit present. Mental Status: She is alert and oriented to person, place, and time. Psychiatric: Mood and Affect: Mood normal. Behavior: Behavior normal. 24 hour intake/output:No intake or output data in the 24 hours ending 03/02/23 1254 Diet: Adult diet Regular; Low Sodium (2 gm); 4 carb choices (60 gm/meal) Medications (as per EMR): HomeMeds: Current Outpatient Medications Medication Instructions albuterol 108 (90 Base) MCG/ACT inhaler 2 puffs, Inhalation, Every 6 hours PRN amLODIPine (NORVASC) 10 mg, Oral, Daily amoxicillin-clavulanate (Augmentin) 875-125 MG tablet 1 tablet, Oral, 2 times daily baclofen (LIORESAL) 10 mg, Oral, Daily ergocalciferol (VITAMIN D-2) 1.25 mg, Oral, Weekly Glucose Blood (Blood Glucose Test) strip 4 times daily hydrOXYzine HCl (ATARAX) 25 mg, Oral, Every 8 hours PRN levothyroxine (SYNTHROID, LEVOXYL) 150 mcg, Oral, Daily lisinopril 40 mg, Oral, Daily meloxicam (MOBIC) 7.5 mg, Oral, Daily NovoLOG FLEXPEN 16 Units, SubCUTAneous, 4 times daily, Before meals. PARoxetine (PAXIL) 20 mg, Oral, Every morning potassium chloride CR (K-Tab) 20 MEQ ER tablet 20 mEq, Oral, Daily, Do not crush, chew, or split. pramipexole (MIRAPEX) 0.25 mg, Oral, Nightly rosuvastatin (CRESTOR) 10 mg, Oral, Daily zolpidem (AMBIEN) 10 mg, Oral, Nightly PRN Scheduled Meds:amLODIPine, 10 mg, Oral, Daily amoxicillin-clavulanate, 1 tablet, Oral, BID baclofen, 10 mg, Oral, Daily cholecalciferol, 1,000 Units, Oral, Daily enoxaparin, 40 mg, SubCUTAneous, Daily influenza, 0.5 mL, IntraMUSCular, Prior to discharge insulin glargine, 19 Units, SubCUTAneous, q AM insulin lispro, 0-12 Units, SubCUTAneous, TID WC insulin lispro, 6 Units, SubCUTAneous, TID WC levothyroxine, 150 mcg, Oral, Daily melatonin, 3 mg, Oral, Nightly PARoxetine, 20 mg, Oral, Nightly pramipexole, 0.25 mg, Oral, Nightly rosuvastatin, 10 mg, Oral, Daily Continuous Infusions: PRN Meds:PRN medications: acetaminophen OR acetaminophen, albuterol, busPIRone, chlorhexidine, dextrose, dextrose, glucagon (rDNA), glucose, melatonin, ondansetron ODT OR ondansetron, polyethylene glycol (PEG) 3350 Diagnostic Workup: I reviewed pertinent Laboratory results, Radiographic results, and Other Clinical Notes at the timeof today's encounter. Labs: No components found for: LABA1C No components found for: EAG Lab Results Component Value Date NA 135 03/02/2023 K 4.1 03/02/2023 CL 105 03/02/2023 CO2 27 03/02/2023 BUN 15 03/02/2023 CREATININE 0.77 03/02/2023 GLUCOSE 97 03/02/2023 CALCIUM 8.4 03/02/2023 Lab Results Component Value Date CHOL 160 06/22/2021 CHOL 222 (A) 05/20/2021 CHOL 208 (A) 02/16/2021 Lab Results Component Value Date TRIG 114 06/22/2021 TRIG 124 05/20/2021 TRIG 93 02/16/2021 Lab Results Component Value Date HDL 70 (H) 06/22/2021 HDL 71 (H) 05/20/2021 HDL 53 02/16/2021 No results found for: LDLCALC No results found for: VLDL Lab Results Component Value Date CHOLHDLRATIO 2 06/22/2021 CHOLHDLRATIO 3 05/20/2021 CHOLHDLRATIO 4 02/16/2021 No results found for: [id number] Lab Results Component Value Date TSH 0.03 (L) 02/27/2023 Radiology reportsas per the Radiologist Radiology: CT abdomen pelvis wo IV contrast Result Date: 02/28/2023 Patient Name: RADHA SANDOVAL : 1945 [facility]#: [id number] ExamDate/Time: 02/28/2023 13:07 Procedure: CT ABDOMEN PELVIS WO IV CONTRAST Ordering Provider: WHALEY BETHANY Reason For Exam: FLANK PAIN CT SCAN OF THE ABDOMEN AND PELVIS WITHOUT CONTRAST: INDICATION: Flank pain and dysuria COMPARISON: None. CT scans of the abdomen and pelvis were performed without oral and intravenous contrast administration, with images from the lung bases through the pubic symphysis. The images are reviewed in the axial, sagittal and coronal planes. Dose reduction was employed with automated exposure control. The lung bases are clear. The cardiac silhouette is satisfactory. The liver is normal in size, shape and attenuation. There are no focal liver masses. The gallbladder is surgically absent. No intra or extrahepatic biliary ductal dilatation is appreciated. The pancreas is unremarkable. The spleen is unremarkable. Evaluation of the upper GI tract demonstrates the stomach to be unremarkable. The duodenum is satisfactory in appearance. The small bowel is unremarkable. There is no mucosal thickening. No zone of transition is appreciated. There is no free fluid nor free air. There is a small fat-containing umbilical hernia. Evaluation of the colon demonstrate no evidence of obstruction or mass lesion. Scattered diverticuli are present without evidence of acute diverticulitis There is no mucosal thickening of the colon. The appendix is not clearly visualized. The adrenal glands are normal. Bilateral renal cysts are present. The largest cyst involves the midportion of the left kidney, is exophytic and measures up to 4.8 cm. Scans through the pelvis demonstrates extensive rectosigmoid diverticulosis without acute diverticulitis. There is mild mesentericstranding adjacent to the proximal and mid sigmoid colon which may relate to changes associated with prior episodes of diverticulitis. The bladder is unremarkable. The remainder of the pelvic contents are unremarkable. There is no mass or adenopathy. There is no free fluid. Arthritic changes of thespine are present with multilevel disc space narrowing and vacuum disc as well as endplate sclerosis and marginal spurring. The retroperitoneum is satisfactory in appearance without evidence of adenop athy. Atherosclerotic changes of the aorta and iliac arteries are noted. Colonic diverticulosis without evidence of acute diverticulitis. Bilateral renal cysts, the largestcyst is on the left measuring up to 4.8 cm. Report Dictated on Electronically Signed By: Jb Ahmadi DO Electronically Signed Date/Time: 02/28/2023 1:44 PM EDT History/Other: Past Medical History: Past Medical History: Diagnosis Date Acquired lymphedema Allergic Anxiety Arthritis Asthma Candidiasis of vulva and vagina CKD (chronic kidney disease) Depression Dietary counseling and surveillance Hyperlipidemia Hyperparathyroidism (HCC) Hypertension Hypothyroidism Malaise and fatigue Morbid obesity (HCC) Muscle weakness Nevus, non-neoplastic Pain in limb Pure hypercholesterolemia RLS (restless legs syndrome) Type 2 diabetes mellitus (HCC) Varicella Past Surgical History: Past Surgical History: Procedure Laterality Date APPENDECTOMY CHOLECYSTECTOMY 1979 COLONOSCOPY 06/19/2008 COLONOSCOPY W/ BIOPSIES AND POLYPECTOMY N/A 12/07/2022 Performed by Avery Marshall DO at [facility] ENDOSCOPY EYE SURGERY Bilateral early 90's LUNG REMOVAL, PARTIAL Left ROTATOR CUFF REPAIR Left TONSILLECTOMY Allergy(ies): Allergies Allergen Reactions Codeine Itching Other Percodan Oxycodone Hives Oxycodone-Aspirin Vancomycin Other reaction(s): U Family History: Family History Problem Relation Name Age of Onset Mental illness Mother GHANSHYAM COLEY Depression Mother GHANSHYAM COLEY Heart disease Father LATHA COLEY High Blood Pressure Father LATHA COLEY Asthma Father LATHA COLEY Hypertension Father LATHA CLOEY Diabetes Brother CATRACHO VIANCA Social History: Social History Tobacco Use Smoking status: Never Smokeless tobacco: Never Vaping Use Vaping Use: Never used Substance Use Topics Alcohol use: Yes Alcohol/week: 1.0 - 2.0 standard drink of alcohol Types: 1 - 2 Standard drinks or equivalent per week Comment: social; 1 mixed drink every 2 weeks Drug use: Never Portions of the information within this encounter were entered using an electronic dictation system. Best attempts were made to edit/proofread the information prior to note completion. Despite the review of information, some errors may remain. If there are questions related to the information contained within the note please contact the signing physician directly. I spent 35 minutes with the pt which involved coordination of care, medical evaluation, review of records, and/or counseling of the pt regarding his/her condition/disease state/prognosis on the date of this note. * Margaret Altamirano OT - 03/02/2023 12:01 PM EDT Images from the original note were not included. Occupational Therapy OCCUPATIONAL THERAPY [facility] & ED's Treatment Note Name/MRN: Radha Sandoval ([id number]) Date of : 1945 Age: 77 y.o. Room/Bed: B1-153/B1-153 A Visit #: 1 out of 7 of visits Discharge Recommendation: SNF Equipment Needed: TBD at next level of care Prior Level of Function ADL Assistance: Independent Ambulation Assistance: Independent Transfer Assistance: Independent Assessment Pt tolerated OT session fair this date. Pt performed UE dressing with Min A, LE dressing with Min A, toileting with Mod-Max A for clothing management and posterior pericare due to pt being soiled, Min A for bed mobility, CGA for transfers and functional mobility to/from bathroom with SPC. Pt is limited by decreased strength, endurance. Pt is not safe to discharge home at this time. Pt will benefit from continued skilled OT in order to address noted deficits. Pt is recommended for SNF for planned discharge. Continue with OT POC. Subjective Pt presents supine in bed, agreeable to OT treatment. Pt soiled of urine, requires bed change. Okay to see per RN. Pressure wound on buttocks, RN presents for assessment. Purewick intact Pain: 0-10 pain scale: 4/10 Location: L shoulder Pt reports chronic pain of L shoulder from previous surgery. Later states no pain in L arm to RN, reports back in back, not formally rated. Medical Precautions: No active isolations Proper PPE donned/doffed in accordance with facility standards. Fall Risk: [place] Fall Risk Score: 60 (High Risk) Precautions/Restrictions: N/A Family/Caregiver Present: none Objective ADLs UE Dressing: Min Assist LE Dressing: Min Assist Toileting: Contact Guard, Max Assist Pt participated in ADLs seated on commode at bathroom level, requires Min A to doff/gown gown due to limited ROM in shoulders. LE dressing with Min A to thread pull up while seated, CGA for standing for balance. Pt participated in toileting with Max A for doffed of pull up due to being significantly soiled, max A for posterior pericare in standing, pt reports toilet seat is not wide enough for her to perform herself. Shoulder ROM assessed this session due to pt report of chronic pain from previous shoulder surgery.Pt demo's approx 60 degrees shoulder flexion, RUE approx 80 degrees; distally WFL. Bed Mobility Supine to sit: Min Assist Sit to supine: Min Assist Scooting: SBA HOB elevated, pt demo's supine to sit EOB with Min A for upper trunk, Min A for BLEs for sit to supine, use of bedrail, with pt preference to exit to R side of bed. Transfers/Mobility Sit to stand: Contact Guard Stand to sit: Contact Guard Toilet: Contact Guard Sitting balance: SBA Standing balance: Contact Guard Functional mobility: Contact Guard Pt demo's functional transfers with SPC with CGA, toilet transfer to std height commode and use of R grab bar with CGA, additional functional mobility to/from bathroom with SPC with CGA, mild instability but no over LOB noted. Device(s) used: cane Plan Continue acute OT per plan of care. Safety/Education Safety Safety Devices in place: All fall risk precautions in place, call light within reach, left in bed, gait belt, patient at risk for falls, and nurse notified Restraints: N/A Education Education Given To: patient Education Provided: OT Role, Plan of Care, ADL Adaptive Strategies, Transfer Training, Energy Conservation, Fall Prevention Education, Discharge Recommendations, and Benefits of Increasing Activity Education Method: Demonstration and Verbal Barriers to Learning: None Education Outcome: Verbalized Understanding and Continued Education Needed AM-PAC AM-PAC Inpatient Daily Activity Raw Score: 16 ADL Inpatient CMS G-Code Modifier: CK Goals Patient Stated Goal: none stated at this time. Encounter Problems Encounter Problems (Active) Dressing Upper Extremities Patient will complete upper body dressing MOD I (Progressing) Start: 03/01/23 Expected End: 03/08/23 Dressings Lower Extremities Patient will dress lower body MOD I (Progressing) Start: 03/01/23 Expected End: 03/08/23 Mobility Patient will demonstrate functional mobility with MOD I and LRD (Progressing) Start: 03/01/23 Expected End: 03/08/23 Toileting Patient will complete toileting tasks at standard toilet with modified independence. (Progressing) Start: 03/01/23 Expected End: 03/08/23 Transfers Patient will complete functional transfer with least restrictive device with modified independence in order to prepare for ambulation. (Progressing) Start: 03/01/23 Expected End: 03/08/23 Therapy Time Individual Co-treatment Time In 1054 Time Out 1120 Minutes 26 Timed Code Treatment Minutes: 26 Minutes (x1 ther act, x1 self care) Margaret Altamirano OT POC supervision transferred to rehab service department Occupational Therapist * Gabrielle Finch MD - 03/02/2023 11:15 AM EDT Images from the original note were not included. Hospitalist Progress Note 03/02/2023 [id number]: Please secure chat me for patient care issues. [phone]: Please secure chat [facility] night Hospitalist for any issues. Subjective: Admit Date: 02/28/2023 PCP: Shiv Lopez MD Room#: B1-153/B1-153 A Interval History: Tolerating diet. Remains weak. Still urinating frequently. She denies chest pain,sob, cough, abdominal pain, nausea, vomiting, diarrhea, constipation, fevers, or chills. D/w pt Adult diet Regular; Low Sodium (2 gm); 4 carb choices (60 gm/meal) @[id number]@ 24HR INTAKE/OUTPUT: No intake or output data in the 24 hours ending 03/02/23 1115 Past Medical History: Past Medical History: Diagnosis Date Acquired lymphedema Allergic Anxiety Arthritis Asthma Candidiasis of vulva and vagina CKD (chronic kidney disease) Depression Dietary counseling and surveillance Hyperlipidemia Hyperparathyroidism (HCC) Hypertension Hypothyroidism Malaise and fatigue Morbid obesity (HCC) Muscle weakness Nevus, non-neoplastic Pain in limb Pure hypercholesterolemia RLS (restless legs syndrome) Type 2 diabetes mellitus (HCC) Varicella LABS: CBC: Recent Labs 02/28/23 1232 03/01/23 0344 03/02/23 0400 WBC 12.3* 13.8* 9.5 RBC 4.11 4.00 4.16 HGB 11.5* 11.5* 11.9 HCT 36.0 34.9* 36.1 MCV 87.5 87.1 86.8 RDW 13.8 13.6 13.7 PLT 278 271 252 BMP: Recent Labs 02/28/23 1232 03/01/23 0344 03/02/23 0400 NA 130* 137 135 K 4.0 4.3 4.1 CL 96* 102 105 CO2 26 26 27 BUN 20* 17 15 CREATININE 1.22* 0.96 0.77 GLUCOSE 483* 123* 97 CALCIUM 8.4 8.3* 8.4 ANIONGAP 8 9 3 LIVER PROFILE: Recent Labs 02/28/23 1232 03/01/23 0344 03/02/23 0400 AST 24 24 22 ALT 18 16 13 BILITOT 0.5 0.4 0.4 ALKPHOS 119 102 100 PROT 6.6 6.0* 5.8* PT/INR: No results for input(s): PROTIME, INR in the last 72 hours. CARDIAC ENZYMES: No results for input(s): TROPONINI in the last 72 hours. Procalcitonin: Lab Results Component Value Date PROCAL 0.05 03/01/2023 COVID-19 PCR: No results for input(s): COVID19 in the last 72 hours. Objective: Vitals: BP (!) 151/81 (BP Location: Right arm, Patient Position: Sitting) Pulse 78 Temp 37.3 C (99.2 F) (Temporal) Resp 18 SpO2 93% Pulse Ox: SpO2 Av % Min: 93 % Max: 95 % Physical Exam Vitals and nursing note reviewed. Constitutional: Appearance: She is not ill-appearing or diaphoretic. HENT: Head: Normocephalic and atraumatic. Cardiovascular: Rate and Rhythm: Normal rate and regular rhythm. Pulmonary: Effort: Pulmonary effort is normal. Breath sounds: Normal breath sounds. Abdominal: General: Bowel sounds are normal. There is no distension. Palpations: Abdomen is soft. Tenderness: There is no guarding. Musculoskeletal: General: Normal range of motion. Cervical back: Normal range of motion. Skin: General: Skin is warm. Neurological: General: No focal deficit present. Mental Status: She is oriented to person, place, and time. Mental status is at baseline. Psychiatric: Mood and Affect: Mood normal. Medications: amLODIPine, 10 mg, Oral, Daily amoxicillin-clavulanate, 1 tablet, Oral, BID baclofen, 10 mg, Oral, Daily cholecalciferol, 1,000 Units, Oral, Daily enoxaparin, 40 mg, SubCUTAneous, Daily influenza, 0.5 mL, IntraMUSCular, Prior to discharge insulin glargine, 19 Units, SubCUTAneous, q AM insulin lispro, 0-12 Units, SubCUTAneous, TID WC insulin lispro, 6 Units, SubCUTAneous, 4x daily AC & HS levothyroxine, 150 mcg, Oral, Daily melatonin, 3 mg, Oral, Nightly PARoxetine, 20 mg, Oral, Nightly pramipexole, 0.25 mg, Oral, Nightly rosuvastatin, 10 mg, Oral, Daily Assessment Functional decline UTI LING/CKD Hyponatremia HTN DM2 with hyperglycemia leukocytosis anemia Hyperlipidemia Hypothyroidism Depression RLS obesity Medical Decision Making Continue antibiotics, continue SSI, POCT, insulin, follow up cx's, follow up labs, Geriatrics and Endocrinology are following, PT/OT, discharge planning, see orders. -am labs, replace lytes prn -increase activity -DVT prophylaxis: [x] Lovenox [] Heparin [] SCDs [x] Encourage ambulation [] Already on Anticoagulation Anticipated Discharge - Date - 03/03 - Location - [facility] - Pending the following - clinical improvement, disposition finalization and when OK with consultants Total time spent (which include face to face and non face to face encounters) : 46 minutes Toxic drug monitoring/narrow therapeutic index drug monitoring : # Drug name : lovenox and SS insulin # Route administered : subcutaneous and subcutaneous # Method of monitoring : daily CBC and ac and hs glucose Extended Emergency Contact Information Primary Emergency Contact: Angel Roger Address: [address] [place] Relation: Child GABRIELLE FINCH MD Division of Hospitalist Medicine [facility] PAGER: Epic chat * Diann Hollis APRN - PANTOGRAPH I ENGRAVER - 03/02/2023 9:31 AM EDT [facility] Geriatric Medicine Inpatient Consult Service Admission Date: 02/28/2023 Assessment Principal Problem: LING (acute kidney injury) (CMS/HCC) (HCC) Active Problems: Declining functional status Weakness Anxiety Polypharmacy DNR (do not resuscitate) Insomnia Plan Declining functional status -Related to physical deconditioning, UTI, advanced age, diabetes type 2 -Continue PT/OT as able while inpatient -Anticipate d/c to SNF for ongoing daily PT/OT, patient agreeable to go to [facility] Fall Weakness -Multiple risk factors including weakness, acute illness, and possible medication side effect -Continue PT/OT as able while inpatient -Vitamin D 17 . Recommend starting high dose replacement 50,000 Q week x 8 weeks; follow up with PCP for follow up levels and need for on-going supplementation. -Check orthostatic vital signs as able -Medications with associated fall risk include: Ambien, hydroxyzine Anxiety -Continue buspar 5 mg BID PRN anxiety -Hydroxyzine discontinued due to high risk anticholingeric side effects of confusion and drowsiness At risk for delirium -Risk factors for this patient include: UTI, weakness, acute illness, and possible medication side effect -Delirium protocol - Continue evidence-based nonpharmacologic interventions for prevention and treatment of delirium: - redirect/reorient/reassure frequently - avoid restraints and instead utilize sitter as needed for safety - early mobilization as medically appropriate, OOB for meals as able - have patient use glasses and hearing aides - use familiar objects (family photos and items from home) - sleep hygiene, limit nighttime care to promote sleep/wake cycle - hydrate and encourage PO intake when medically appropriate - minimize/camouflage lines and tethers as able - minimize narcotics as long as pain is adequately controlled - avoid benzos and anticholinergic medications -Avoid antipsychotics unless patient is a danger to themselves or others. -Encourage PO intake, time up in chair, family visits, supervised ambulation, and sleep hygiene -If agitated, assess for and consider treating for pain -Continue scheduled melatonin at HS -Monitor for constipation/urinary retention - last BM unknown Follow-up: will follow with you Subjective Chief Complaint: low back pain/dysuria/polyuria/weakness Geriatrics consulted for functional decline HPI- The patient is new to me but seen by the Geriatric Inpatient Consult team. 77 y.o. year-old female admitted to acute care from home for lower back pain and burning with urination. Diagnosed with UTI and started on antibiotics. Per chart review, she saw her PCP prior to admission fir dysuria, polyuria, and back pain and was prescribed augmentin. She had worsening symptoms so she came to the emergency room. She lives alone and is independent of ADL's and IADL's. She states she was feeling more weak at home and had increased urinary frequency. Lab review: Sodium: 135, Potassium: 4.1, BUN: 15, Creatinine: 0.77, Vitamin D 17, WBC: 9.5 Interval History: Remains on B1 . No documented events overnight. Patient cooperative with oral medications. Patient resting in bed and easily woken. She is alert to person, place, and time. She states she slept well overnight and ate breakfast this morning. She complains of pain in her lower back. She denies burning with urination but still complains of urinary frequency. She has not had a BM since she has been in the hospital. Denies feeling anxious this morning. Seen by PT. Minimum assist, contact guard. Ambulated 30 ft x2. Recommending residential facility . Review of Systems Constitutional: Negative for chills, fatigue and fever. HENT: Negative for sore throat and trouble swallowing. Respiratory: Negative for chest tightness and shortness of breath. Cardiovascular: Negative for chest pain and leg swelling. Gastrointestinal: Positive for constipation. Negative for abdominal pain and diarrhea. Genitourinary: Positive for frequency. Negative for difficulty urinating and dysuria. Musculoskeletal: Positive for gait problem and myalgias. Neurological: Negative for dizziness and light-headedness. Psychiatric/Behavioral: Negative for dysphoric mood and sleep disturbance. Objective BP (!) 151/81 (BP Location: Right arm, Patient Position: Sitting) Pulse 78 Temp 37.3 C (99.2 F)(Temporal) Resp 18 SpO2 93% No intake or output data in the 24 hours ending 03/02/23930 Wt Readings from Last 3 Encounters: 02/27/23 234 lb (106 kg) 02/15/23 228 lb (103 kg) 02/07/23 242 lb 6.4 oz (110 kg) Current Facility-Administered Medications: acetaminophen (Tylenol) tablet 650 mg, 650 mg, Oral, q6h PRN, 650 mg at 03/01/23 0635 OR acetaminophen (Tylenol) suppository 650 mg, 650 mg, Rectal, q6h PRN, Gabrielle Finch MD albuterol 108 (90 Base) MCG/ACT inhaler 2 puff, 2 puff, Inhalation, q6h PRN, Gabrielle Finch MD amLODIPine (Norvasc) tablet 10 mg, 10 mg, Oral, Daily, Gabrielle Finch MD, 10 mg at 03/01/232109 amoxicillin-clavulanate (Augmentin) 875-125 MG per tablet 1 tablet, 1 tablet, Oral, BID, Gabrielle Finch MD, 1 tablet at 03/02/23908 baclofen (Lioresal) tablet 10 mg, 10 mg, Oral, Daily, Gabrielle Finch MD, 10 mg at 03/01/232110 busPIRone (Buspar) tablet 5 mg, 5 mg, Oral, BID PRN, Adam Holt MD chlorhexidine (Hibiclens) 4 % liquid, , Topical, Daily PRN, Rosalinda Burrows APRN - JORGE cholecalciferol (Vitamin D3) tablet 1,000 Units, 1,000 Units, Oral, Daily, Adam Holt MD, 1,000 Units at 03/02/23908 dextrose 5 % infusion, 100 mL/hr, IntraVENous, PRN, Gabrielle Finch MD dextrose 50 % solution 12.5 g, 12.5 g, IntraVENous, PRN, Tasneem Whaley MD enoxaparin (Lovenox) syringe 40 mg, 40 mg, SubCUTAneous, Daily, Gabrielle Finch MD, 40 mg at 03/02/23908 glucagon (human recombinant) injection 1 mg, 1 mg, IntraMUSCular, PRN, Gabrielle Finch MD glucose oral gel 15 g, 15 g, Oral, PRN, Tasneem Whaley MD Influenza Vac A&B SA Adj quadrivalent (Fluad) vaccine 0.5 mL, 0.5 mL, IntraMUSCular, Prior to discharge, Gabrielle Finch MD insulin glargine (Lantus) injection 19 Units, 19 Units, SubCUTAneous, q AM, Jelly Paz, SOCIAL STAFF WORKER - PANTOGRAPH I ENGRAVER, 19 Units at 03/02/23908 Insulin Lispro (Humalog) injection 0-12 Units, 0-12 Units, SubCUTAneous, TID WC, 2 Units at 03/02/23908 AND [DISCONTINUED] Insulin Lispro (Humalog) injection 0-12 Units, 0-12 Units, SubCUTAneous, Nightly, Gabrielle Finch MD, 4 Units at 02/28/232053 Insulin Lispro (Humalog) injection 6 Units, 6 Units, SubCUTAneous, 4x daily AC & HS, Jelly Paz, SOCIAL STAFF WORKER - PANTOGRAPH I ENGRAVER, 6 Units at 03/02/23604 levothyroxine (Synthroid, Levoxyl) tablet 150 mcg, 150 mcg, Oral, Daily, Gabrielle Finch MD, 150 mcg at 03/02/23604 melatonin tablet 3 mg, 3 mg, Oral, Nightly, Adam Holt MD, 3 mg at 03/01/232109 melatonin tablet 3 mg, 3 mg, Oral, Nightly PRN, Adam Holt MD ondansetron ODT (Zofran-ODT) disintegrating tablet 4 mg, 4 mg, Oral, q8h PRN OR ondansetron (Zofran) injection 4 mg, 4 mg, IntraVENous, q6h PRN, Gabrielle Finch MD PARoxetine (Paxil) tablet 20 mg, 20 mg, Oral, Nightly, Adam Holt MD polyethylene glycol (PEG) 3350 (Miralax) packet 17 g, 17 g, Oral, Daily PRN, Gabrielle Finch MD pramipexole (Mirapex) tablet 0.25 mg, 0.25 mg, Oral, Nightly, Gabrielle Finch MD, 0.25 mg at 03/01/232111 rosuvastatin (Crestor) tablet 10 mg, 10 mg, Oral, Daily, Gabrielle Finch MD, 10 mg at 03/01/232109 Physical Exam Vitals and nursing note reviewed. Constitutional: No acute distress, well-nourished, well kempt Psych: Mood and affect Appropriate. Good eye contact. Cardiovascular: Regular rate and rhythm, no murmur, no BLE edema Pulmonary/Chest: Clear to auscultation bilaterally, normal respiratory effort, no coughing noted Abdominal: Soft, not distended, no tenderness to palpation, BS present, Neurological: alert, attentive, speech is clear and appropriate , oriented x date, month, year, day, place, city, and self, follows commands, no tremor and no rigidity Musculoskeletal: Muscle strength 4/5 RLE, 4/5 LLE. Gait: Deferred Skin: warm and dry, no visible rashes or wounds Labs and Imaging: Recent Results (from the past 24 hour(s)) POCT glucose meter Collection Time: 03/01/23 11:22 AM Result Value Ref Range Glucose 153 (H) 70 - 100 mg/dL POCT glucose meter Collection Time: 03/01/23 5:05 PM Result Value Ref Range Glucose 95 70 - 100 mg/dL POCT glucose meter Collection Time: 03/01/23 8:32 PM Result Value Ref Range Glucose 194 (H) 70 - 100 mg/dL Vitamin D Deficiency Screening (Vit D 25) Collection Time: 03/02/23 4:00 AM Result Value Ref Range VIT D 25-OH, TOTAL 17 (L) 30 - 100 ng/mL T4, free Collection Time: 03/02/23 4:00 AM Result Value Ref Range FREE T4 3.28 (H) 0.78 - 2.19 ng/dL CBC auto differential Collection Time: 03/02/23 4:00 AM Result Value Ref Range Auto WBC 9.5 3.6 - 10.7 10*3/uL RBC 4.16 3.8 - 5.20 10*6/uL Hemoglobin 11.9 11.7 - 16.0 g/dL Hematocrit 36.1 35.0 - 47.0 % MCV 86.8 80.0 - 98.0 fL MCH 28.5 26.0 - 34.0 pg MCHC 32.8 32.0 - 36.0 % RDW 13.7 11.5 - 14.5 % Platelets 252 140 - 440 10*3/uL MPV 8.4 7.4 - 12.4 fL nRBC 0.1 0.0 - 2.0 /100 WBCs Neutrophils Relative 63.9 40.0 - 80.0 % Lymphocytes Relative 20.1 20.0 - 40.0 % Monocytes Relative 11.4 (H) 2.0 - 10.0 % Eosinophils Relative 3.9 1.0 - 6.0 % Basophils Relative 0.7 0.0 - 2.0 % Neutrophils Absolute 6.1 1.8 - 7.0 10*3/uL Lymphocytes Absolute 1.9 1.0 - 4.3 10*3/uL Monocytes Absolute 1.1 (H) 0.0 - 0.8 10*3/uL Eosinophils Absolute 0.4 0.0 - 0.5 10*3/uL Basophils Absolute 0.1 0.0 - 0.2 10*3/uL Comprehensive metabolic panel Collection Time: 03/02/23 4:00 AM Result Value Ref Range SODIUM 135 135 - 145 mmol/L POTASSIUM 4.1 3.5 - 5.1 mmol/L CHLORIDE 105 98 - 107 mmol/L CARBON DIOXIDE 27 22 - 30 mmol/L ANION GAP 3 3 - 13 mmol/L UREA NITROGEN 15 7 - 17 mg/dL CREATININE 0.77 0.52 - 1.04 mg/dL GLUCOSE 97 70 - 100 mg/dL CALCIUM 8.4 8.4 - 10.4 mg/dL AST (SGOT) 22 15 - 46 U/L ALT 13 0 - 34 U/L ALKALINE PHOSPHATASE 100 38 - 126 U/L ALBUMIN 3.1 (L) 3.5 - 5.0 g/dL BILIRUBIN, TOTAL 0.4 0.2 - 1.3 mg/dL TOTAL PROTEIN 5.8 (L) 6.3 - 8.2 g/dL eGFR 78.6 >60.0 mL/min/1.73m*2 POCT glucose meter Collection Time: 03/02/23 8:18 AM Result Value Ref Range Glucose 141 (H) 70 - 100 mg/dL Lab Results Component Value Date TSH 0.03 (L) 02/27/2023 No results found for: [id number] Lab Results Component Value Date VITD25 17 (L) 03/02/2023 Reviewed: allergies, previous encounters, imaging, active problem lists, medications, and labs * Edelmira Hanna - 03/02/2023 8:23 AM EDT Nutrition rescreen completed. Pt referred to RD for uncontrolled DM, and nutrition supplement per Wound Care. * Monet Mcdonnell, PT - 03/01/2023 3:47 PM EDT Physical Therapy Facility/Department: [address] Physical Therapy Initial Evaluation NAME: Radha Sandoval : 1945 Date of Service: 03/01/2023 Discharge Recommendations: Prison Facility, Continue to assess pending progress PT Equipment Recommendations Equipment Needed: No Assessment Requires PT Follow-Up: Yes Assessment: Pt is a 77 y.o. female admitted 02/28 with dysuria, polyuria, back pain. Found to have LING. CT abdomen showed diverticulosis. Pt was previously independent with functional mobility with SPC. Pt is currently requiring SBA for bed mobility, CGA to min A for functional transfers and ambulation with SPC. Pt is currently limited by endurance, fatigue and is at an increased risk for falls. Pt will benefit from acute skilled PT to address current deficits. Recommend SNF pending progress dueto decreased activity tolerance and pt lives alone. Performance Deficits/Impairments: Decreased functional mobility , Decreased endurance, Decreased balance, Decreased strength Activity Tolerance Comment: Pt limited by endurance, fatigue Decision Making: Medium Complexity History: Pt admitted 02/28 with dysuria, polyuria, back pain. Found to have LING. CT abdomen showed diverticulosis Exam: AM-PAC Clinical Presentation: Pt admitted 02/28 with dysuria, polyuria, back pain. Found to have LING. CT abdomen showed diverticulosis. Pt has significant past medical history as indicated impacting pt's current clinical presentation. Pt is currently SBA to min A for functional mobility. Recommend SNF pending progress. Barriers to Learning: None Barriers to Learning: None Activity Tolerance Activity Tolerance: Patient limited by fatigue, Patient limited by endurance Patient Diagnosis(es): The primary encounter diagnosis was LING (acute kidney injury) (CMS/HCC) ([facility]). Diagnoses of Pyelonephritis, Polypharmacy, Insomnia, unspecified type, and Pressure ulcer of right buttock, stage 3 ([facility]) were also pertinent to this visit. has a past medical history of Acquired lymphedema, Allergic, Anxiety, Arthritis, Asthma, Candidiasis of vulva and vagina, CKD (chronic kidney disease), Depression, Dietary counseling and surveillance, Hyperlipidemia, Hyperparathyroidism (HCC), Hypertension, Hypothyroidism, Malaise and fatigue, Morbid obesity (HCC), Muscle weakness, Nevus, non-neoplastic, Pain in limb, Pure hypercholesterolemia, RLS (restless legs syndrome), Type 2 diabetes mellitus (HCC), and Varicella. has a past surgical history that includes Appendectomy; Cholecystectomy (1979); Colonoscopy (06/19/2008); Lung removal, partial (Left); Rotator cuff repair (Left); Tonsillectomy; Eye surgery (Bilateral, early ); and Colonoscopy w/ biopsies and polypectomy (N/A, 12/07/2022). Restrictions Restrictions/Precautions Restrictions/Precautions: General Precautions, Fall Risk Required Braces or Orthoses?: No Vision/Hearing Vision: Within Functional Limits Hearing: Functional/adequate for paticipation in therapy Cognition/Orientation Overall Cognitive Status: WFL Overall Orientation Status: Within Functional Limits Subjective General Chart Reviewed: Yes Patient Assessed for Rehabilitation Services: Yes Additional Pertinent Hx: Pt admitted 02/28 with dysuria, polyuria, back pain. Found to have LING. CT abdomen showed diverticulosis Family / Caregiver Present: No Follows Commands: Within Functional Limits General Comment Comments: Per RN Okay for therapy Subjective Subjective: Pt pleasant and agreeable to therapy session Patient Stated Goal: Pt did not state Pain Assessment Pain Assessment: No/denies pain Social/Functional History Social/Functional History Lives With: Alone Type of Home: House Home Layout: One level, Laundry in basement Home Access: Stairs to enter without rails Entrance Stairs - Number of Steps: 2 Bathroom Shower/Tub: Tub/Shower unit, Shower chair with back Bathroom Equipment: Grab bars in shower Home Equipment: Cane ADL Assistance: Independent Homemaking Assistance: Independent (was requiring assist for laundry) Ambulation Assistance: Independent With device?: Yes Device: straight cane Transfer Assistance: Independent Active Clothing Sales Assistant: Yes Objective Observation/Palpation Posture: Good Observation: PIV intact, purewick intact Gross Assessment: Yes Strength: Generally decreased, functional (noted with functional mobility) Bed mobility Supine to Sit: Stand by assistance Sit to Supine: Stand by assistance Scooting: Stand by assistance Comment: Pt completes supine<->sit and scooting to EOB at A. Increased time to complete with HOB elevated and use of bed rails. Pt denies dizziness with position change. Transfers Sit to Stand: Contact guard assistance, Minimal Assistance Stand to sit: Minimal Assistance, Contact guard assistance Comment: Pt completes x4 transfers throughout session. x2 from EOB, x2 from toilet. Pt requires fluctuating CGA to min A for transfers with cues for anterior weightshif. Intermittent min A to boost into upright stand and control descent/guide hips to surface. Pt denies dizziness with position change. Ambulation Ambulation: Yes Ambulation 1 Surface 1: Level tile Device 1: Single point cane Assistance 1: Minimum assistance, Contact guard Quality of Gait 1: reciprocal stepping, B foot clearance, slow miracle Quality of Gait Comment 1: Pt demos short, step through gait pattern, appropriate SPC and LE sequencing, decreased gait speed, generalized instability. Distance (ft) 1: ~30 feet x2 trials Comments 1: Seated rest break on toilet between trials. Pt demos x1 LOB requiring min A to correct.Grossly CGA with undirectional ambulation. Balance Posture: Good Sitting - Static: Good Sitting - Dynamic: Good Standing - Static: Fair Standing - Dynamic: Fair Comments: Pt completes multiple bouts of static and dynamic standing balance for pericare and LB dressing at CGA with unilateral UE assist. No significant LOB. Plan # of visits: 5 Current Treatment Recommendations: Strengthening, Balance Training, Functional Mobility Training, Transfer Training, Endurance Training, Gait Training, Neuromuscular Re-education, Pain Management, Home Exercise Program, Safety Education & Training, Patient/Caregiver Education & Training, Equipment Evaluation, Education, & procurement, Positioning Plan Comment: Goals and plan of care established in collaboration with pt Safety Safety Devices Safety Devices in Place: Yes Type of Devices: All fall risk precautions in place, Call light within reach, Gait belt, Patient atrisk for falls, Left in bed, Nurse notified, No alarms engaged upon entry into room AM-PAC Score AM-PAC Inpatient Mobility Raw Score (No Stairs) : 15 Goals Encounter Problems Encounter Problems (Active) Exercise Patient will complete lower extremity exercises for 1-2 sets / 5-10 reps in order to improve strength and activity tolerance for mobility. Start: 03/01/23 Expected End: 03/08/23 Mobility Patient will ambulate 100 feet with modified independence and least restrictive device in order to improve safety and independence with mobility. Start: 03/01/23 Expected End: 03/08/23 Patient will ascend and descend 2 stairs with SPC and SBA in order to safely negotiate home. Start: 03/01/23 Expected End: 03/08/23 Pain - Adult Transfers Patient will perform bed mobility with modified independence in order to improve independence and prepare for out of bed mobility. Start: 03/01/23 Expected End: 03/08/23 Patient will complete functional transfer with least restrictive device with modified independence in order to prepare for ambulation. Start: 03/01/23 Expected End: 03/08/23 Education Education Given To: Patient Education Provided: Goals, Energy Conservation, PT Role, General Safety, Plan of Care, Family Education, Discharge recommendations, Injury Prevention, Transfer Training Education Method: Verbal Barriers to Learning: None Education Outcome: Verbalized understanding, Demonstrated understanding, Continued education needed Therapy Time Individual Co-treatment Time In 1420 Time Out 1451 Minutes 31 Timed Code Treatment Minutes: 8 Minutes (ther act x1) Monet Mcdonnell PT * Gabrielle Finch MD - 03/01/2023 1:15 PM EDT Images from the original note were not included. Hospitalist Progress Note 03/01/2023 [phone]: Please secure chat me for patient care issues. [phone]: Please secure chat [facility] Hospitalist for any issues. Subjective: Admit Date: 02/28/2023 PCP: Shiv Lopez MD Room#: B1-153/B1-153 A Interval History: Feels better. Weak. Tolerating diet. Pain markedly improved. She denies chest pain, sob, cough, abdominal pain, nausea, vomiting, diarrhea, constipation, fevers, or chills. D/w pt and Geriatrics separately. Adult diet Regular; Low Sodium (2 gm); 4 carb choices (60 gm/meal) @[id number]@ 24HR INTAKE/OUTPUT: No intake or output data in the 24 hours ending 03/01/23 1316 Past Medical History: Past Medical History: Diagnosis Date Acquired lymphedema Allergic Anxiety Arthritis Asthma Candidiasis of vulva and vagina CKD (chronic kidney disease) Depression Dietary counseling and surveillance Hyperlipidemia Hyperparathyroidism (HCC) Hypertension Hypothyroidism Malaise and fatigue Morbid obesity (HCC) Muscle weakness Nevus, non-neoplastic Pain in limb Pure hypercholesterolemia RLS (restless legs syndrome) Type 2 diabetes mellitus (HCC) Varicella LABS: CBC: Recent Labs 02/27/23 15502/28/23 1232 03/01/23 0344 WBC 10.1 12.3* 13.8* RBC 4.40 4.11 4.00 HGB 12.9 11.5* 11.5* HCT 40.1 36.0 34.9* MCV 91.1 87.5 87.1 RDW 12.1 13.8 13.6 PLT 362 278 271 BMP: Recent Labs 02/27/23155002/28/23 1232 03/01/23 0344 NA -- 130* 137 K -- 4.0 4.3 CL -- 96* 102 CO2 24 26 26 BUN 23 20* 17 CREATININE 1.33* 1.22* 0.96 GLUCOSE 524* 483* 123* CALCIUM 9.1 8.4 8.3* ANIONGAP -- 8 9 LIVER PROFILE: Recent Labs 02/27/23 1551 02/28/23 1232 03/01/23 0344 AST 18 24 24 ALT 17 18 16 BILITOT 0.6 0.5 0.4 ALKPHOS 122 119 102 PROT 6.9 6.6 6.0* PT/INR: No results for input(s): PROTIME, INR in the last 72 hours. CARDIAC ENZYMES: No results for input(s): TROPONINI in the last 72 hours. Procalcitonin: Lab Results Component Value Date PROCAL 0.05 03/01/2023 COVID-19 PCR: No results for input(s): COVID19 in the last 72 hours. Objective: Vitals: BP 138/57 (BP Location: Right arm) Pulse 80 Temp 36.6 C (97.8 F) (Temporal) Resp 16 SpO2 93% Pulse Ox: SpO2 Av.6 % Min: 92 % Max: 97 % Physical Exam Vitals and nursing note reviewed. Constitutional: General: She is not in acute distress. HENT: Head: Normocephalic. Eyes: Extraocular Movements: Extraocular movements intact. Cardiovascular: Rate and Rhythm: Normal rate and regular rhythm. Pulses: Normal pulses. Pulmonary: Effort: Pulmonary effort is normal. Breath sounds: Normal breath sounds. Abdominal: General: Bowel sounds are normal. Palpations: Abdomen is soft. Musculoskeletal: General: Normal range of motion. Cervical back: Neck supple. Right lower leg: No edema. Left lower leg: No edema. Skin: General: Skin is warm. Neurological: General: No focal deficit present. Mental Status: She is oriented to person, place, and time. Mental status is at baseline. Psychiatric: Mood and Affect: Mood normal. Medications: sodium chloride, 75 mL/hr, Last Rate: 75 mL/hr (02/28/232226) amLODIPine, 10 mg, Oral, Daily amoxicillin-clavulanate, 1 tablet, Oral, BID baclofen, 10 mg, Oral, Daily [START ON 03/02/2023] cholecalciferol, 1,000 Units, Oral, Daily enoxaparin, 40 mg, SubCUTAneous, Daily influenza, 0.5 mL, IntraMUSCular, Prior to discharge insulin lispro, 0-12 Units, SubCUTAneous, TID WC And insulin lispro, 0-12 Units, SubCUTAneous, Nightly insulin lispro, 16 Units, SubCUTAneous, 4x daily AC & HS levothyroxine, 150 mcg, Oral, Daily melatonin, 3 mg, Oral, Nightly [START ON 03/02/2023] PARoxetine, 20 mg, Oral, Nightly pramipexole, 0.25 mg, Oral, Nightly rosuvastatin, 10 mg, Oral, Daily Assessment Functional decline UTI LING/CKD Hyponatremia HTN DM2 with hyperglycemia leukocytosis anemia Hyperlipidemia Hypothyroidism Depression RLS obesity Medical Decision Making Continue antibiotics, HLIV, continue SSI, POCT, insulin, follow up cx's, follow up labs, Geriatricsand Endocrinology are following, PT/OT, discharge planning, see orders. -am labs, replace lytes prn -increase activity -DVT prophylaxis: [x] Lovenox [] Heparin [] SCDs [x] Encourage ambulation [] Already on Anticoagulation Anticipated Discharge - Date - 03/02-03/03 - Location - Home with Home Health Care vs SNF - Pending the following - clinical improvement, disposition finalization and when OK with consultants Total time spent (which include face to face and non face to face encounters) : 48 minutes Toxic drug monitoring/narrow therapeutic index drug monitoring : # Drug name : lovenox and SS insulin # Route administered : subcutaneous and subcutaneous # Method of monitoring : daily CBC and ac and hs glucose Extended Emergency Contact Information Primary Emergency Contact: Angel Roger Address: [address] Mobile Relation: Child GABRIELLE FINCH MD Division of Hospitalist Medicine [facility] PAGER: [employer] chat * Gunner Roberts, OT - 03/01/2023 11:54 AM EDT Images from the original note were not included. Occupational Therapy OCCUPATIONAL THERAPY [facility] ED's Initial Evaluation Name/MRN: Radha Sandoval ([id number]) Evaluation Date: 03/01/2023 Date of : 1945 Admission Date: 02/28/2023 11:30 AM Age: 77 y.o. Room/Bed: B1153/B1153 A Discharge Recommendation: SNF and Continue to assess pending progress Equipment Needed: TBD at next level of care Assessment IMPRESSION: Pt in 02/28 with c/o back pain, pain with urination, and was sent in by her PCP for kidney evaluation. She was previously IND for ADLs, IADLs, and functional transfers / mobility with a cane PRN. She is currently MOD - MIN A for LB ADLs, MIN A - CGA for UB ADLs, and CGA for functional transfers / mobility with a cane. She is limited at this time by back pain, LUE shoulder pain, and increased fatigue this date. She demos diminished activity tolerance at this time. She would benefit from skilled OT services to address the above performance deficits. Recommend planned discharge for SNF pending progress. Performance Deficits /Impairments: Decreased Functional Mobility, Decreased ADL status, Decreased Endurance, Decreased Balance, and Decreased High Level ADLs Prognosis: Good Decision Making: Medium Complexity Subjective Pleasant and cooperative with encouragement. OK to see per RN. PIV and purewick intact and in place. Pain: reports pain in back and LUE shoulder, however does not formally rate. Past Medical History: Past Medical History: Diagnosis Date Acquired lymphedema Allergic Anxiety Arthritis Asthma Candidiasis of vulva and vagina CKD (chronic kidney disease) Depression Dietary counseling and surveillance Hyperlipidemia Hyperparathyroidism (HCC) Hypertension Hypothyroidism Malaise and fatigue Morbid obesity (HCC) Muscle weakness Nevus, non-neoplastic Pain in limb Pure hypercholesterolemia RLS (restless legs syndrome) Type 2 diabetes mellitus (HCC) Varicella Past Surgical History: Past Surgical History: Procedure Laterality Date APPENDECTOMY CHOLECYSTECTOMY 1979 COLONOSCOPY 06/19/2008 COLONOSCOPY W/ BIOPSIES AND POLYPECTOMY N/A 12/07/2022 Performed by Avery Marshall DO at [facility] ENDOSCOPY EYE SURGERY Bilateral early 90's LUNG REMOVAL, PARTIAL Left ROTATOR CUFF REPAIR Left TONSILLECTOMY Admission Diagnosis: Patient Active Problem List Diagnosis Date Noted LING (acute kidney injury) ([facility]/HCC) (HCC) 02/28/2023 Acute cystitis with hematuria 02/27/2023 Diarrhea 02/27/2023 Wound of right buttock 02/07/2023 Hypokalemia 12/13/2022 Gastrointestinal bleed 12/07/2022 Other chronic sinusitis 10/25/2022 Urinary frequency 10/04/2022 Chronic left shoulder pain 10/04/2022 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) 06/30/2022 DDD (degenerative disc disease), lumbar 06/30/2022 Chronic right-sided low back pain with right-sided sciatica 06/30/2022 Dyspnea on exertion 09/09/2021 Muscle spasms of both lower extremities 09/09/2021 Lymphedema of both lower extremities 08/05/2021 OAB (overactive bladder) 05/06/2021 Localized edema 10/01/2020 Dependent edema 07/13/2020 Uncontrolled type 2 diabetes mellitus with hyperglycemia ([facility]) 01/16/2020 Morbidly obese ([facility]) 01/16/2020 Vitamin D deficiency 01/16/2020 Moderate episode of recurrent major depressive disorder ([facility]) 06/03/2019 Chronic renal insufficiency, stage III (moderate) ([facility]) 06/03/2019 Hyperlipidemia with target LDL less than 70 06/03/2019 Insomnia 04/06/2015 Restless legs syndrome (RLS) 01/14/2015 Hypertension 01/14/2015 Hypothyroidism 01/14/2015 Medical Precautions: No active isolations Proper PPE donned/doffed in accordance with facility standards. Fall Risk: [place] Fall Risk Score: 45 (High Risk) Precautions/Restrictions: N/A Family/Caregiver Present: none Overall Cognitive Status: WFL Overall Orientation Status: Oriented x4 Social/Functional History Patient admitted from home. Lives With: Alone Type of Home: single family home Home Layout: Two Level Home and Bed/Bed Upstairs Home Access: Stairs to Enter without Rails (# of stairs: 2) Bathroom Shower/Tub: Tub/Shower Combo, Shower Chair without Back, and Grab Bars Toilet: Standard Home Equipment: cane Homemaking Responsibilities: Independent Receives Help From: None Active Clothing Sales Assistant: Yes Prior Level of Function ADL Assistance: Independent Ambulation Assistance: Independent Transfer Assistance: Independent Objective ADLs LE Dressing: Mod Assist Pt limited by increased pain this date for completion of ADL tasks. She required increased assist to don di shoes at this time. She demos diminished functional reach and balance this date for participation in ADLs. She demos diminished standing activity tolerance at this time. Based on observed ability, anticipate pt would require MOD A for LB Dressing and bathing, MIN A for toileting, and MIN -CGA for UB Adls. Upper Extremity Assessment AROM: Exceptions: RUE appears grossly WFL, however limited evaluation of LUE 2/2 increased pain. Noted ~ 90 shoulder flexion. PROM: Not assessed this session Strength: Exceptions: > +3/5 within observed range BUE. Coordination: Not assessed this session Tone: Not assessed this session Sensation: Not assessed this session Vision: no visual deficits Hearing: normal Hand dominance: N/A Bed Mobility: Supine to sit: Min Assist Sit to supine: SBA Scooting: SBA HOB elevated, denies dizziness with positional changes. Increased time required to complete. Pt able to manage BLE to EOB, however increased reliance on pull up on therapist to reach EOB. SBA for return to bed and for scooting hips at EOB. Transfers/Functional Mobility Sit to stand: Contact Guard Stand to sit: Contact Guard Sitting balance: SBA Standing balance: Contact Guard Functional mobility: Contact Guard Functional Transfers: Pt requires increased time to complete. No physical assist required. Increased reliance on bed rails at this time for stability. She was able to complete with CGA overall for safety. Denies dizziness with positional changes. Mild instability noted throughout. Functional Mobility: Increased time required to complete few side steps at EOB. Increased fatigue and instability noted at this time. No true LOB noted this date. Increased reliance on cane for stability. Device(s) used: cane AM-PAC AM-PAC Inpatient Daily Activity Raw Score: 17 ADL Inpatient CMS G-Code Modifier: CK Plan Pt would benefit from skilled acute OT services to address Strengthening, Balance Training, Functional Mobility Training, Endurance Training, Pain Management, Safety Education and Training, Patient/Caregiver Training, Equipment Evaluation/Education, Self-Care/ADL Training, and Home Management Training. Frequency: 7 of visits during current hospital admission or until additional recommendations are made Barriers: Decreased endurance, Upper extremity weakness, and Lower extremity weakness Prognosis: good Safety/Education Safety Safety Devices in place: All fall risk precautions in place, call light within reach, left in bed, gait belt, patient at risk for falls, nurse notified, and no alarms engaged upon entry Restraints: No Education Education Given To: patient Education Provided: OT Role, Plan of Care, ADL Adaptive Strategies, Transfer Training, Equipment, and Fall Prevention Education Education Method: Demonstration, Verbal, and Teach Back Barriers to Learning: None Education Outcome: Verbalized Understanding, Demonstrated Understanding, and Continued Education Needed Goals Patient Stated Goal: none stated at this time. Encounter Problems Encounter Problems (Active) Dressing Upper Extremities Patient will complete upper body dressing MOD I Start: 03/01/23 Expected End: 03/08/23 Dressings Lower Extremities Patient will dress lower body MOD I Start: 03/01/23 Expected End: 03/08/23 Mobility Patient will demonstrate functional mobility with MOD I and LRD Start: 03/01/23 Expected End: 03/08/23 Toileting Patient will complete toileting tasks at standard toilet with modified independence. Start: 03/01/23 Expected End: 03/08/23 Transfers Patient will complete functional transfer with least restrictive device with modified independence in order to prepare for ambulation. Start: 03/01/23 Expected End: 03/08/23 Therapy Time Individual Co-treatment Time In 1101 Time Out 1120 Minutes 19 Gunner Roberts OT Patient's Occupational Therapy Plan of Care supervision is transferred to a [facility] Occupational Therapist. Goals and/or treatment plan was established in collaboration with patient/family/other representatives. documented in this [facility]09-15-2023 Hospital course Narrative* Gabrielle Finch MD - 03/03/2023 1:00 PM EDT Images from the original note were not included. Discharge Summary Radha Sandoval : 1945 ADMIT DATE: 02/28/2023 DISCHARGE DATE: 03/03/2023 PRIMARY CARE PHYSICIAN: Shiv Lopez MD VISIT STATUS: observation CODE STATUS: Prior DISCHARGE DIAGNOSES: Functional decline UTI-E coli LING/CKD Hyponatremia HTN DM2 with hyperglycemia leukocytosis anemia Hyperlipidemia Hypothyroidism Depression RLS obesity HOSPITAL COURSE: 77 year old presented with low back pain, weakness, dysuria, polyuria and hyperglycemia. She was admitted, given IVF, IV antibiotics, was seen by Endocrinology and Geriatrics and had PT/OT evaluations. She was also seen by wound care. Urine culture grew e coli. She improved with adjustment of insulin, close blood glucose monitoring and therapy. She completed an antibiotic course. She was thought to need SNF. Arrangements were made and she was discharged. SIGNIFICANT DIAGNOSTIC STUDIES: CT abd/pelvis CONSULTANTS: Endocrinology, Geriatrics, wound care RECOMMENDED NEXT STEPS: Transferred to [facility] SNF. Continue close monitoring of BG. Avoid nephrotoxins/NSAIDS/aceinh. Levothroid dose decreased. Apresoline started. Physical Exam: Vitals: BP (!) 154/81 (BP Location: Right arm, Patient Position: Lying) Pulse 93 Temp 36.7 C (98.1 F) (Temporal) Resp 16 SpO2 94% Pulse Ox: SpO2 Av.5 % Min: 94 % Max: 95 % General appearance: alert, cooperative and no distress Mental Status: oriented to person, place and time and normal affect Lungs: clear to auscultation bilaterally, normal effort Heart: regular rate and rhythm, no murmur Abdomen: soft, nontender, nondistended, bowel sounds present, no masses Extremities: no edema, redness, tenderness in the calves Skin: no gross lesions, rashes LABS: CBC: Recent Labs 03/01/2334303/02/2339903/03/23 013 WBC 13.8* 9.5 9.0 RBC 4.00 4.16 4.19 HGB 11.5* 11.9 11.6* HCT 34.9* 36.1 35.5 MCV 87.1 86.8 84.8 RDW 13.6 13.7 13.4 PLT 271 252 257 BMP: Recent Labs 03/01/2334303/02/2339903/03/23129 NA 137 135 134* K 4.3 4.1 3.7 CL 102 105 102 CO2 26 27 30 BUN 17 15 15 CREATININE 0.96 0.77 0.82 GLUCOSE 123* 97 125* CALCIUM 8.3* 8.4 8.1* ANIONGAP 9 3 2* LIVER PROFILE: Recent Labs 03/01/2334303/02/2339903/03/23129 AST 24 22 34 ALT 16 13 12 BILITOT 0.4 0.4 0.3 ALKPHOS 102 100 94 PROT 6.0* 5.8* 6.2* Procalcitonin: Lab Results Component Value Date PROCAL 0.05 03/01/2023 DISCHARGE MEDICATIONS: Medication List START taking these medications acetaminophen 325 MG tablet Commonly known as: Tylenol Take 2 tablets (650 mg) by mouth every 6 hours as needed for mild pain (1-3) or fever (For temp greater than 100.4 F (38 C)) for up to 10 days. busPIRone 5 MG tablet Commonly known as: Buspar Take 1 tablet (5 mg) by mouth 2 times daily as needed (anxiety). hydrALAZINE 25 MG tablet Commonly known as: Apresoline Take 1 tablet (25 mg) by mouth 3 times daily. insulin glargine 100 UNIT/ML injection Commonly known as: Lantus Inject 19 Units under the skin every morning. Do not start before March 04, 2023. Start taking on: March 04, 2023 * Insulin Lispro 100 UNIT/ML solution injection Commonly known as: Humalog Inject 0-12 Units under the skin 3 times daily (with meals). * Insulin Lispro 100 UNIT/ML solution injection Commonly known as: Humalog Inject 10 Units under the skin in the morning and 10 Units at noon and 10 Units in the evening. Inject with meals. melatonin 3 MG tablet Take 1 tablet (3 mg) by mouth Nightly. * This list has 2 medication(s) that are the same as other medications prescribed for you. Read thedirections carefully, and ask your doctor or other care provider to review them with you. CHANGE how you take these medications levothyroxine 125 MCG tablet Commonly known as: Synthroid, Levoxyl Take 1 tablet (125 mcg) by mouth daily. Do not start before March 04, 2023. Start taking on: March 04, 2023 What changed: medication strength how much to take CONTINUE taking these medications albuterol 108 (90 Base) MCG/ACT inhaler amLODIPine 10 MG tablet Commonly known as: Norvasc Take 1 tablet (10 mg) by mouth daily. baclofen 10 MG tablet Commonly known as: Lioresal Take 1 tablet (10 mg) by mouth daily. ergocalciferol 1.25 MG (52254 UT) capsule Commonly known as: Vitamin D-2 Take 1 capsule (1.25 mg) by mouth 1 (one) time per week. hydrOXYzine HCl 25 MG tablet Commonly known as: Atarax Take 1 tablet (25 mg) by mouth every 8 hours as needed for anxiety. PARoxetine 20 MG tablet Commonly known as: Paxil Take 1 tablet (20 mg) by mouth every morning. pramipexole 0.125 MG tablet Commonly known as: Mirapex Take 2 tablets (0.25 mg) by mouth Nightly. rosuvastatin 10 MG tablet Commonly known as: Crestor Take 1 tablet (10 mg) by mouth daily. STOP taking these medications amoxicillin-clavulanate 875-125 MG tablet Commonly known as: Augmentin Blood Glucose Test strip lisinopril 40 MG tablet meloxicam 7.5 MG tablet Commonly known as: Mobic NovoLOG FLEXPEN 100 UNIT/ML pen Generic drug: insulin aspart potassium chloride CR 20 MEQ ER tablet Commonly known as: K-Tab zolpidem 10 MG tablet Commonly known as: Ambien Where to Get Your Medications These medications were sent to [facility] [address] [place] [id number] Hours: Monday to Monday 10 am to 6 pm insulin glargine 100 UNIT/ML injection Insulin Lispro 100 UNIT/ML solution injection Insulin Lispro 100 UNIT/ML solution injection Information about where to get these medications is not yet available Ask your nurse or doctor about these medications acetaminophen 325 MG tablet busPIRone 5 MG tablet hydrALAZINE 25 MG tablet levothyroxine 125 MCG tablet melatonin 3 MG tablet DIET: No diet orders on file ACTIVITY: up with assist COMPLEXITY OF FOLLOW UP: [] Moderate Complexity: follow up within 7-14 calendar days (31006) [] Severe Complexity: follow up within 7 calendar days (07889) FOLLOW UP TESTING, PENDING RESULTS OR REFERRALS AT TRANSITIONAL CARE VISIT: [] Yes [] No PENDING STUDIES: No DISPOSITION: SNF FACILITY/HOME CARE AGENCY NAME: [facility] Follow up with [facility] [address] [place] [address] [address] [facility] [id number] INSTRUCTIONS TO MA/SW: Please call patient on day after discharge (must document patient contacted within 2 business days of discharge). FOLLOW UP QUESTIONS FOR MA/SW: 1. Did you get medications filled and taking them as instructed from discharge? 2. Are you following your discharge instructions from your hospital stay? 3. Please confirm patient is scheduled for a follow up appointment within the above time frame. DISCHARGE TIME: > 35 minutes SIGNED: GABRIELLE FINCH MD 03/03/2023, 5:28 PM documented in this [facility]09-15-2023 NoteDischarge Summary Radha Sandoval : 1945 ADMIT DATE: 02/28/2023 DISCHARGE DATE: 03/03/2023 PRIMARY CARE PHYSICIAN: Shiv Lopez MD VISIT STATUS: observation CODE STATUS: Prior DISCHARGE DIAGNOSES: Functional decline UTI-E coli LING/CKD Hyponatremia HTN DM2 with hyperglycemia leukocytosis anemia Hyperlipidemia Hypothyroidism Depression RLS obesity HOSPITAL COURSE: 77 year old presented with low back pain, weakness, dysuria, polyuria and hyperglycemia. She was admitted, given IVF, IV antibiotics, was seen by Endocrinology and Geriatrics and had PT/OT evaluations. She was also seen by wound care. Urine culture grew e coli. She improved with adjustment of insulin, close blood glucose monitoring and therapy. She completed an antibiotic course. She was thought to need SNF. Arrangements were made and she was discharged. SIGNIFICANT DIAGNOSTIC STUDIES: CT abd/pelvis CONSULTANTS: Endocrinology, Geriatrics, wound care RECOMMENDED NEXT STEPS: Transferred to [facility]. Continue close monitoring of BG. Avoid nephrotoxins/NSAIDS/bela inh. Levothroid dose decreased. Apresoline started. Physical Exam: Vitals: BP (!) 154/81 (BP Location: Right arm, Patient Position: Lying) Pulse 93 Temp 36.7 ?C (98.1 ?F) (Temporal) Resp 16 SpO2 94% Pulse Ox: SpO2 Av.5 % Min: 94 % Max: 95 % General appearance: alert, cooperative and no distress Mental Status: oriented to person, place and time and normal affect Lungs: clear to auscultation bilaterally, normal effort Heart: regular rate and rhythm, no murmur Abdomen: soft, nontender, nondistended, bowel sounds present, no masses Extremities: no edema, redness, tenderness in the calves Skin: no gross lesions, rashes LABS: CBC: Recent Labs 03/01/2334303/02/2339903/03/23 013 WBC 13.8* 9.5 9.0 RBC 4.00 4.16 4.19 HGB 11.5* 11.9 11.6* HCT 34.9* 36.1 35.5 MCV 87.1 86.8 84.8 RDW 13.6 13.7 13.4 PLT 271 252 257 BMP: Recent Labs 03/01/2334303/02/2339903/03/23 013 NA 137 135 134* K 4.3 4.1 3.7 CL 102 105 102 CO2 26 27 30 BUN 17 15 15 CREATININE 0.96 0.77 0.82 GLUCOSE 123* 97 125* CALCIUM 8.3* 8.4 8.1* ANIONGAP 9 3 2* LIVER PROFILE: Recent Labs 03/01/2334303/02/2339903/03/23 013 AST 24 22 34 ALT 16 13 12 BILITOT 0.4 0.4 0.3 ALKPHOS 102 100 94 PROT 6.0* 5.8* 6.2* Procalcitonin: Lab Results Component Value Date PROCAL 0.05 03/01/2023 DISCHARGE MEDICATIONS: Medication List START taking these medications acetaminophen 325 MG tablet Commonly known as: Tylenol Take 2 tablets (650 mg) by mouth every 6 hours as needed for mild pain (1-3) or fever (For temp greater than 100.4 F (38 C)) for up to 10 days. busPIRone 5 MG tablet Commonly known as: Buspar Take 1 tablet (5 mg) by mouth 2 times daily as needed (anxiety). hydrALAZINE 25 MG tablet Commonly known as: Apresoline Take 1 tablet (25 mg) by mouth 3 times daily. insulin glargine 100 UNIT/ML injection Commonly known as: Lantus Inject 19 Units under the skin every morning. Do not start before March 04, 2023. Start taking on: March 04, 2023 * Insulin Lispro 100 UNIT/ML solution injection Commonly known as: Humalog Inject 0-12 Units under the skin 3 times daily (with meals). * Insulin Lispro 100 UNIT/ML solution injection Commonly known as: Humalog Inject 10 Units under the skin in the morning and 10 Units at noon and 10 Units in the evening. Inject with meals. melatonin 3 MG tablet Take 1 tablet (3 mg) by mouth Nightly. * This list has 2 medication(s) that are the same as other medications prescribed for you. Read the directions carefully, and ask your doctor or other care provider to review them with you. CHANGE how you take these medications levothyroxine 125 MCG tablet Commonly known as: Synthroid, Levoxyl Take 1 tablet (125 mcg) by mouth daily. Do not start before March 04, 2023. Start taking on: March 04, 2023 What changed: medication strength how much to take CONTINUE taking these medications albuterol 108 (90 Base) MCG/ACT inhaler amLODIPine 10 MG tablet Commonly known as: Norvasc Take 1 tablet (10 mg) by mouth daily. baclofen 10 MG tablet Commonly known as: Lioresal Take 1 tablet (10 mg) by mouth daily. ergocalciferol 1.25 MG (01203 UT) capsule Commonly known as: Vitamin D-2 Take 1 capsule (1.25 mg) by mouth 1 (one) time per week. hydrOXYzine HCl 25 MG tablet Commonly known as: Atarax Take 1 tablet (25 mg) by mouth every 8 hours as needed for anxiety. PARoxetine 20 MG tablet Commonly known as: Paxil Take 1 tablet (20 mg) by mouth every morning. pramipexole 0.125 MG tablet Commonly known as: Mirapex Take 2 tablets (0.25 mg) by mouth Nightly. rosuvastatin 10 MG tablet Commonly known as: Crestor Take 1 tablet (10 mg) by mouth daily. STOP taking these medications amoxicillin-clavulan (more content not included)...[facility] 03-03-2023 Note* Care Coordination - Ester Lipscomb - 03/03/2023 11:21 AM EDT Discharge med list transmitted to [facility] via [facility] per TCC request. [id number] Miscellaneous Notes* Restricted notes were excluded * Care Coordination - Ester Lipscomb - 03/03/2023 11:21 AM EDT Discharge med list transmitted to [facility] via [facility] per TCC request. * Care Coordination - Unknown Case Management - 03/03/2023 11:20 AM EDT Patient Choice Patient Name: RADHA SANDOVAL Date of : 1945 All Providers Sent Referral Name: [facility] Transitional Care Unit [facility] Address: [address] [place] [address] [facility] Address: [address] [place] [id number] * Care Coordination - Laura Jackson RN - 03/03/2023 9:33 AM EDT Spoke with pt at bedside regarding POA, pt states she is not interested at this time to complete itand would consider completing at [facility] - did call Rafaela at [facility] to update her as well. 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 Will notify RN and TCC of this in rounds. Notified patient's son via phone of transportation time. SW remains available if any other needs concerns arise. * Care Coordination - Laura Jackson RN - 03/03/2023 7:29 AM EDT Insurance auth obtained for [facility], updated Dr Finch notified via [employer]. * Care Coordination - Laura Jackson RN - 03/02/2023 11:15 AM EDT Received a call from Rafaela at [facility], they are able to accept, pt agreeable. 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 Await review and response regarding ability to accept. TCC notified. * Care Coordination - Laura Jackson RN - 03/02/2023 8:21 AM EDT Spoke with pt agreeable for referral to [facility] sn[facility] and [facility], [facility] tasked to complete * Home Care - Tasneem Anaya LPN - 03/01/2023 4:25 PM EDT Business Office Associate following case for Discharge Needs. Therapy states SNF, but Patient wants HC instead. * Care Coordination - Laura Jackson RN - 03/01/2023 10:14 AM EDT Care Managment Initial Assessment Date: 03/01/2023 Patient Name: Radha aSndoval : 1945 Patient Information Source of Information: Patient Cognition/Language: WFL - Within Functional Limits Permission given to speak with patient ambulatory service representative/caregiver as indicated: Yes Confirmation of Payer with patient/family: Yes Payer Name: [employer] [place]: No Confirmation of Primary Care Physician: Confirmed PCP Name: John Seen in last 2 years?: Yes Primary Caregiver: Self If assistance needed, confirmed caregiver ready, willing and able to care for patient at discharge:Yes Confirmed with: per pt, son or neighbor Living Arrangements Current Residence: House Number of Floors 1 (laundry in basement) Number of Entry Steps: 2 Bed/Bath Levels: Facility: Facility Name: Plan to Return: Yes Lives with: Alone Support Systems: Children, Family members, Friends/neighbors Activities of Daily Living Ambulation: Assistance (cane) Bathing/Dressing: Independent Elimination/Continence/Toileting: Independent Feeding: Independent Who Assists with Activities of Daily Living: Instrumental Activities of Daily Living Prescription Coverage: Yes Pharmacy Used: [facility] Medication Management: Independent Transportation/Shopping: Independent Transportation Mode: Car Needs Assistance with Transportation at Discharge: No (son or neighbor) Meal Preparation: Independent Laundry/Cleaning: Independent Finances/Bill Paying: Independent Communication: Independent Types of Care Services/Equipment Utilized Care Services: Dialysis Type: NA Durable Medical Equipment: Cane, Walker, Shower Seat, Glucometer Patient's Goal/Discharge Plan Patient expects to be discharged to: Home Discharge Planning Actions: Continue to follow Patient's Choice Rights and [employer] and Collaborative Relationships Disclosed as Indicated for Post-Acute Care: NA Interdisciplinary Team Engagement: PT/OT, Home Health Care Social Work Referral for: Additional Information: 77 yo female admitted to for LING. On PO augmentin for UTI, low Na diet, Ucx pending. CT noted diverticulitis and di renal stones. PT OT ordered, geriatrics and endocrine consulted. Met with pt atbedside, introduced self and explained role of tcc. Pt has insurance with RX coverage, active with PCP. Pt lives at home alone, uses a cane at baseline, has a son and neighbor able to assist, not interested in SNF but would be able to [facility]. [facility] liaison following, TCC to assist and follow as needed. Laura Jackson RN * Care Plan - Anaya Carr RN - 02/28/2023 6:10 PM EDT Problem: Pain - Adult Goal: Verbalizes/displays adequate comfort level or baseline comfort level Outcome: Progressing Problem: Safety - Adult Goal: Free from fall injury Outcome: Progressing documented in this [facility]09-15-2023 Note* Care Coordination - Unknown Case Management - 03/03/2023 11:20 AM EDT Patient Choice Patient Name: RADHA SANDOVAL Date of : 1945 All Providers Sent Referral Name: [facility] Transitional [facility] SNF Address: [address] [place] [id number] Name: [facility]. Address: [id number] [place], [place] [id number] [id number] Note* Care Coordination - Laura Jackson RN - 03/03/2023 9:33 AM EDT Spoke with pt at bedside regarding POA, pt states she is not interested at this time to complete itand would consider completing at [facility] - did call Rafaela at [facility] to update her as well. 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 Will notify RN and TCC of this in rounds. Notified patient's son via phone of transportation time. SW remains available if any other needs concerns arise. [facility] [id number] Note* Care Coordination - Laura Jackson RN - 03/03/2023 7:29 AM EDT Insurance auth obtained for [facility], updated Dr Finch notified via [employer]. [facility] [id number] Note* Care Coordination - Laura Jackson RN - 03/02/2023 11:15 AM EDT Received a call from Rafaela at [facility], they are able to accept, pt agreeable. 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 [phone]: Please secure chat [facility] Hospitalist for any issues. Subjective: Admit Date: 02/28/2023 PCP: Shiv Lopez MD Room#: B1-153/B1-153 A Interval History: Tolerating diet. Remains weak. Still urinating frequently. She denies chest pain, sob, cough, abdominal pain, nausea, vomiting, diarrhea, constipation, fevers, or chills. D/w pt Adult diet Regular; Low Sodium (2 gm); 4 carb choices (60 gm/meal) @[id number]@ 24HR INTAKE/OUTPUT: No intake or output data in the 24 hours ending 03/02/23 1115 Past Medical History: Past Medical History: Diagnosis Date Acquired lymphedema Allergic Anxiety Arthritis Asthma Candidiasis of vulva and vagina CKD (chronic kidney disease) Depression Dietary counseling and surveillance Hyperlipidemia Hyperparathyroidism (HCC) Hypertension Hypothyroidism Malaise and fatigue Morbid obesity (HCC) Muscle weakness Nevus, non-neoplastic Pain in limb Pure hypercholesterolemia RLS (restless legs syndrome) Type 2 diabetes mellitus (HCC) Varicella LABS: CBC: Recent Labs 02/28/23 1232 03/01/23 0344 03/02/23 0400 WBC 12.3* 13.8* 9.5 RBC 4.11 4.00 4.16 HGB 11.5* 11.5* 11.9 HCT 36.0 34.9* 36.1 MCV 87.5 87.1 86.8 RDW 13.8 13.6 13.7 PLT 278 271 252 BMP: Recent Labs 02/28/23 1232 03/01/23 0344 03/02/23 0400 NA 130* 137 135 K 4.0 4.3 4.1 CL 96* 102 105 CO2 26 26 27 BUN 20* 17 15 CREATININE 1.22* 0.96 0.77 GLUCOSE 483* 123* 97 CALCIUM 8.4 8.3* 8.4 ANIONGAP 8 9 3 LIVER PROFILE: Recent Labs 02/28/23 1232 03/01/23 0344 03/02/23 0400 AST 24 24 22 ALT 18 16 13 BILITOT 0.5 0.4 0.4 ALKPHOS 119 102 100 PROT 6.6 6.0* 5.8* PT/INR: No results for input(s): PROTIME, INR in the last 72 hours. CARDIAC ENZYMES: No results for input(s): TROPONINI in the last 72 hours. Procalcitonin: Lab Results Component Value Date PROCAL 0.05 03/01/2023 COVID-19 PCR: No results for input(s): COVID19 in the last 72 hours. Objective: Vitals: BP (!) 151/81 (BP Location: Right arm, Patient Position: Sitting) Pulse 78 Temp 37.3 ?C (99.2 ?F) (Temporal) Resp 18 SpO2 93% Pulse Ox: SpO2 Av % Min: 93 % Max: 95 % Physical Exam Vitals and nursing note reviewed. Constitutional: Appearance: She is not ill-appearing or diaphoretic. HENT: Head: Normocephalic and atraumatic. Cardiovascular: Rate and Rhythm: Normal rate and regular rhythm. Pulmonary: Effort: Pulmonary effort is normal. Breath sounds: Normal breath sounds. Abdominal: General: Bowel sounds are normal. There is no distension. Palpations: Abdomen is soft. Tenderness: There is no guarding. Musculoskeletal: General: Normal range of motion. Cervical back: Normal range of motion. Skin: General: Skin is warm. Neurological: General: No focal deficit present. Mental Status: She is oriented to person, place, and time. Mental status is at baseline. Psychiatric: Mood and Affect: Mood normal. Medications: amLODIPine, 10 mg, Oral, Daily amoxicillin-clavulanate, 1 tablet, Oral, BID baclofen, 10 mg, Oral, Daily cholecalciferol, 1,000 Units, Oral, Daily enoxaparin, 40 mg, SubCUTAneous, Daily influenza, 0.5 mL, IntraMUSCular, Prior to discharge insulin glargine, 19 Units, SubCUTAneous, q AM insulin lispro, 0-12 Units, SubCUTAneous, TID WC insulin lispro, 6 Units, SubCUTAneous, 4x daily AC & HS levothyroxine, 150 mcg, Oral, Daily melatonin, 3 mg, Oral, Nightly PARoxetine, 20 mg, Oral, Nightly pramipexole, 0.25 mg, Oral, Nightly rosuvastatin, 10 mg, Oral, Daily Assessment Functional decline UTI LING/CKD Hyponatremia HTN DM2 with hyperglycemia leukocytosis anemia Hyperlipidemia Hypothyroidism Depression RLS obesity Medical Decision Making Continue antibiotics, continue SSI, POCT, insulin, follow up cx's, follow up labs, Geriatrics and Endocrinology are following, PT/OT, discharge planning, see orders. -am labs, replace lytes prn -increase activity -DVT prophylaxis: [x] Lovenox [] Heparin [] SCDs [x] Encourage ambulation [] Already on Anticoagulation Anticipated Discharge - Date - 03/03 - Location - SNF - Pending the following - clinical improvement, disposition finalization and when OK with consultants Total time spent (which include face to face and non face to face encounters) : 46 minutes Toxic drug monitoring/narrow therapeutic index drug monitoring : # Drug name : lovenox and SS insulin # Route administered : subcutaneous and subcutaneous # Method of monitoring : daily CBC and ac and hs glucose Extended Emergency Contact Information Primary Emergency Contact: Angel Roger Address: [address] Mobile Relation: Child GABRIELLE FINCH MD Division of Hospitalist Medicine (more content not included)...[facility]09-14-2023 Note* Care Coordination - Ester Lipscomb - 03/02/2023 8:40 AM EDT Referral placed to SN[facility]- [facility] request. Await review and response regarding ability to accept. TCC notified. [id number] NoteReferral placed to SNF- [facility] via [facility] per TCC request. Await review and response regarding ability to accept. TCC notified. [facility]09-14-2023 Note* Care Coordination - Laura Jackson RN - 03/02/2023 8:21 AM EDT Spoke with pt agreeable for referral to [facility], CREDIT CONTROLLER tasked to complete [facility] [id number] NoteSpoke with pt agreeable for referral to [facility], CREDIT CONTROLLER tasked to complete [facility]09-13-2023 Note* Home Care - Tasneem Anaya LPN - 03/01/2023 4:25 PM EDT Business Office Associate following case for Discharge Needs. Therapy states SNF, but Patient wants HC instead. [facility] [id number] Consult note* Rosalinda Burrows APRN - JORGE - 03/01/2023 2:34 PM EDT Images from the original note were not included. [facility] Wound Care CONSULT Note Radha Sandoval AGE: 77 y.o. GENDER: female : 1945 Subjective: HISTORY of PRESENT ILLNESS HPI Radha Sandoval is a 77 y.o. female who presented to ER from PCP to have kidneys evaluated for low back pain and burning with urination . Wound Check Patient presents for wound check. Patient has a pressure wound which is located on the right buttock . Current symptoms: pain: moderate and drainage: moderate, serosanguinous. Symptoms began 3 monthsago. Pain is rated 4/10. With cleansing wound. Interventions to date: dressing changed today after assessment . History of Wound Context: patient has had wound for months, able to move and offload, will suggest a alternate surface and supplements for healing. Incont. Urine makes it worse due to increased moisture. Barby wick in place. + chronic lymphedema wears own compression socks. Lymphedema present for over 2 years. Denies N,V,D, denies pain at this time except wound pain during treatment. NAD. Looking at menu to order lunch. PAST MEDICAL HISTORY Active Ambulatory Problems Diagnosis Date Noted Dependent edema 07/13/2020 Uncontrolled type 2 diabetes mellitus with hyperglycemia ([facility]) 01/16/2020 Morbidly obese ([facility]) 01/16/2020 Vitamin D deficiency 01/16/2020 Moderate episode of recurrent major depressive disorder ([facility]) 06/03/2019 OAB (overactive bladder) 05/06/2021 Localized edema 10/01/2020 Insomnia 04/06/2015 Dyspnea on exertion 09/09/2021 Muscle spasms of both lower extremities 09/09/2021 Chronic renal insufficiency, stage III (moderate) ([facility]) 06/03/2019 Restless legs syndrome (RLS) 01/14/2015 Hyperlipidemia with target LDL less than 70 06/03/2019 Lymphedema of both lower extremities 08/05/2021 Hypertension 01/14/2015 Hypothyroidism 01/14/2015 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) 06/30/2022 DDD (degenerative disc disease), lumbar 06/30/2022 Chronic right-sided low back pain with right-sided sciatica 06/30/2022 Urinary frequency 10/04/2022 Chronic left shoulder pain 10/04/2022 Other chronic sinusitis 10/25/2022 Gastrointestinal bleed 12/07/2022 Hypokalemia 12/13/2022 Wound of right buttock 02/07/2023 Acute cystitis with hematuria 02/27/2023 Diarrhea 02/27/2023 Resolved Ambulatory Problems Diagnosis Date Noted Cellulitis of left lower extremity 07/06/2020 Bronchitis 04/12/2021 Rhabdomyolysis 01/20/2019 Wound of gluteal cleft 10/04/2022 Acute lower GI bleeding 12/05/2022 Past Medical History: Diagnosis Date Acquired lymphedema Allergic Anxiety Arthritis Asthma Candidiasis of vulva and vagina CKD (chronic kidney disease) Depression Dietary counseling and surveillance Hyperlipidemia Hyperparathyroidism (HCC) Malaise and fatigue Morbid obesity (HCC) Muscle weakness Nevus, non-neoplastic Pain in limb Pure hypercholesterolemia RLS (restless legs syndrome) Type 2 diabetes mellitus (HCC) Varicella PAST SURGICAL HISTORY Past Surgical History: Procedure Laterality Date APPENDECTOMY CHOLECYSTECTOMY 1979 COLONOSCOPY 06/19/2008 COLONOSCOPY W/ BIOPSIES AND POLYPECTOMY N/A 12/07/2022 Performed by Avery Marshall DO at [facility] ENDOSCOPY EYE SURGERY Bilateral early 90' LUNG REMOVAL, PARTIAL Left ROTATOR CUFF REPAIR Left TONSILLECTOMY FAMILY HISTORY Family History Problem Relation Name Age of Onset Mental illness Mother GHANSHYAM COLEY Depression Mother GHANSHYAM COLEY Heart disease Father LATHA COLEY High Blood Pressure Father LATHA COLEY Asthma Father LATHA COLEY Hypertension Father LATHA COLEY Diabetes Brother CATRACHO COLEY SOCIAL HISTORY Social History Tobacco Use Smoking status: Never Smokeless tobacco: Never Vaping Use Vaping Use: Never used Substance Use Topics Alcohol use: Yes Alcohol/week: 1.0 - 2.0 standard drink of alcohol Types: 1 - 2 Standard drinks or equivalent per week Comment: social; 1 mixed drink every 2 weeks Drug use: Never ALLERGIES Allergies Allergen Reactions Codeine Itching Other Percodan Oxycodone Hives Oxycodone-Aspirin Vancomycin Other reaction(s): U MEDICATIONS No current facility-administered medications on file prior to encounter. Current Outpatient Medications on File Prior to Encounter Medication Sig Dispense Refill albuterol 108 (90 Base) MCG/ACT inhaler Inhale 2 puffs every 6 hours as needed for wheezing. amLODIPine (Norvasc) 10 MG tablet Take 1 tablet (10 mg) by mouth daily. 90 tablet 1 amoxicillin-clavulanate (Augmentin) 875-125 MG tablet Take 1 tablet by mouth 2 times daily for 7 days. 14 tablet 0 baclofen (Lioresal) 10 MG tablet Take 1 tablet (10 mg) by mouth daily. 30 tablet 0 ergocalciferol (Vitamin D-2) 1.25 MG (25294 UT) capsule Take 1 capsule (1.25 mg) by mouth 1 (one) time per week. 90 capsule 1 Glucose Blood (Blood Glucose Test) strip 4 times daily. hydrOXYzine HCl (Atarax) 25 MG tablet Take 1 tablet (25 mg) by mouth every 8 hours as needed for anxiety. 90 tablet 0 insulin aspart (NovoLOG FLEXPEN) 100 UNIT/ML pen Inject 16 Units under the skin in the morning and 16 Units at noon and 16 Units in the evening and 16 Units before bedtime. Before meals.. 10 mL 1 levothyroxine (Synthroid, Levoxyl) 150 MCG tablet Take 1 tablet (150 mcg) by mouth daily. 30 tablet1 lisinopril 40 MG tablet Take 1 tablet (40 mg) by mouth daily. 90 tablet 1 meloxicam (Mobic) 7.5 MG tablet Take 1 tablet (7.5 mg) by mouth daily. 90 tablet 1 PARoxetine (Paxil) 20 MG tablet Take 1 tablet (20 mg) by mouth every morning. 90 tablet 1 potassium chloride CR (K-Tab) 20 MEQ ER tablet Take 20 mEq by mouth daily. Do not crush, chew, or split. pramipexole (Mirapex) 0.125 MG tablet Take 2 tablets (0.25 mg) by mouth Nightly. 60 tablet 1 rosuvastatin (Crestor) 10 MG tablet Take 1 tablet (10 mg) by mouth daily. 90 tablet 1 zolpidem (Ambien) 10 MG tablet Take 1 tablet (10 mg) by mouth Nightly as needed for sleep. Do not start before December 22, 2022. 30 tablet 0 [DISCONTINUED] insulin aspart (NovoLOG FLEXPEN) 100 UNIT/ML pen Inject 16 Units under the skin. Before meals. REVIEW OF SYSTEMS See HPI Objective: BP 138/57 (BP Location: Right arm) Pulse 80 Temp 36.6 C (97.8 F) (Temporal) Resp 16 SpO2 93% PHYSICAL EXAM Consitutional- {in no apparent distress, alert, and cooperative: Skin - yeast rash gluteal fold and labia area Location: right butt amount and color drainage: small serosang drainage 25% yellow slough, 75% pinksubcutaneous tissues , wound measuring in cm: 1cm x1cm x0.1cm surrounding skin intact. (see photo below ) Wound/Incision 02/15/23 Pressure Injury Buttock Right;Midline (Active) Respiratory -Normal effort, no respiratory distress, no cyanosis Abdomen - soft, nontender, and nondistended Lower Extremities - venous stasis dermatitis noted, lymphedema bilateral legs : Right and left measurements. Calf 48cm Knee to foot 58cm Ankle 26cm Heel to toe 24cm LABS CBC: Lab Results Component Value Date WBC 13.8 (H) 03/01/2023 HGB 11.5 (L) 03/01/2023 HCT 34.9 (L) 03/01/2023 MCV 87.1 03/01/2023 PLT 271 03/01/2023 BMP: Lab Results Component Value Date NA 137 03/01/2023 K 4.3 03/01/2023 CL 102 03/01/2023 CO2 26 03/01/2023 BUN 17 03/01/2023 CREATININE 0.96 03/01/2023 PT/INR: No results found for: PROTIME, INR Prealbumin: No results found for: PREALBUMIN Albumin:No components found for: LABALBU Sed Rate:No results found for: SEDRATE Micro: No components found for: BC Assessment/Plan: Right buttock stage 3PI - Cleanse Hibiclens apply alginate and foam. Daily . And PRN if soiled. Waffle mattress overlay Patient able to move side to side. On own work with therapy with hygiene and mobility in bed Lymphedema - order pumps as outpatient. Wear own compression socks Elevate legs as much as possible Nutritional support Wound Care to follow Please follow up at [facility] wound care center after hospital discharge. Thank you for the consult! Please secure chat me for questions. I personally obtained the conte and critical portions of the history and physical exam. I reviewed the labs, imaging studies, and electronic medical record. I reviewed the chart documentation and discussed the patient with treatment team members. I have edited the note to reflect my clinical findingsand my assessment and plan. Please note, the time of this note does not reflect the time I saw thispatient today, but the time of this documentaton. Portions of this note including HPI, ROS, impression/plan, and examination may have been copied forward from admission to today as to provide important historical information essential in contributing to medical decision making. Documentation has been reviewed and edited as necessary to support clinical decision making for today's visit and to reflect my own independent evaluation of this patient. Decision making for today's visit and to reflectmy own independent evaluation of this patient. [facility] [id number] Consult note* ELSA Rosenbaum CNP - 03/01/2023 2:34 PM EDT Images from the original note were not included. [facility] Wound Care CONSULT Note Radha Sandoval AGE: 77 y.o. GENDER: female : 1945 Subjective: HISTORY of PRESENT ILLNESS HPI Radha Sandoval is a 77 y.o. female who presented to ER from PCP to have kidneys evaluated for low back pain and burning with urination . Wound Check Patient presents for wound check. Patient has a pressure wound which is located on the right buttock . Current symptoms: pain: moderate and drainage: moderate, serosanguinous. Symptoms began 3 monthsago. Pain is rated 4/10. With cleansing wound. Interventions to date: dressing changed today after assessment . History of Wound Context: patient has had wound for months, able to move and offload, will suggest a alternate surface and supplements for healing. Incont. Urine makes it worse due to increased moisture. Barby wick in place. + chronic lymphedema wears own compression socks. Lymphedema present for over 2 years. Denies N,V,D, denies pain at this time except wound pain during treatment. NAD. Looking at menu to order lunch. PAST MEDICAL HISTORY Active Ambulatory Problems Diagnosis Date Noted Dependent edema 07/13/2020 Uncontrolled type 2 diabetes mellitus with hyperglycemia (HCC) 01/16/2020 Morbidly obese (HCC) 01/16/2020 Vitamin D deficiency 01/16/2020 Moderate episode of recurrent major depressive disorder (HCC) 06/03/2019 OAB (overactive bladder) 05/06/2021 Localized edema 10/01/2020 Insomnia 04/06/2015 Dyspnea on exertion 09/09/2021 Muscle spasms of both lower extremities 09/09/2021 Chronic renal insufficiency, stage III (moderate) (HCC) 06/03/2019 Restless legs syndrome (RLS) 01/14/2015 Hyperlipidemia with target LDL less than 70 06/03/2019 Lymphedema of both lower extremities 08/05/2021 Hypertension 01/14/2015 Hypothyroidism 01/14/2015 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) 06/30/2022 DDD (degenerative disc disease), lumbar 06/30/2022 Chronic right-sided low back pain with right-sided sciatica 06/30/2022 Urinary frequency 10/04/2022 Chronic left shoulder pain 10/04/2022 Other chronic sinusitis 10/25/2022 Gastrointestinal bleed 12/07/2022 Hypokalemia 12/13/2022 Wound of right buttock 02/07/2023 Acute cystitis with hematuria 02/27/2023 Diarrhea 02/27/2023 Resolved Ambulatory Problems Diagnosis Date Noted Cellulitis of left lower extremity 07/06/2020 Bronchitis 04/12/2021 Rhabdomyolysis 01/20/2019 Wound of gluteal cleft 10/04/2022 Acute lower GI bleeding 12/05/2022 Past Medical History: Diagnosis Date Acquired lymphedema Allergic Anxiety Arthritis Asthma Candidiasis of vulva and vagina CKD (chronic kidney disease) Depression Dietary counseling and surveillance Hyperlipidemia Hyperparathyroidism (HCC) Malaise and fatigue Morbid obesity (HCC) Muscle weakness Nevus, non-neoplastic Pain in limb Pure hypercholesterolemia RLS (restless legs syndrome) Type 2 diabetes mellitus (HCC) Varicella PAST SURGICAL HISTORY Past Surgical History: Procedure Laterality Date APPENDECTOMY CHOLECYSTECTOMY 1980 COLONOSCOPY 06/19/2008 COLONOSCOPY W/ BIOPSIES AND POLYPECTOMY N/A 12/07/2022 Performed by Avery Marshall DO at [facility] ENDOSCOPY EYE SURGERY Bilateral early 90's LUNG REMOVAL, PARTIAL Left ROTATOR CUFF REPAIR Left TONSILLECTOMY FAMILY HISTORY Family History Problem Relation Name Age of Onset Mental illness Mother GHANSHYAM COLEY Depression Mother GHANSHYAM COLEY Heart disease Father LATHA COLEY High Blood Pressure Father LATHA COLEY Asthma Father LATHA COLEY Hypertension Father LATHA COLEY Diabetes Brother CATRACHO VIANCA SOCIAL HISTORY Social History Tobacco Use Smoking status: Never Smokeless tobacco: Never Vaping Use Vaping Use: Never used Substance Use Topics Alcohol use: Yes Alcohol/week: 1.0 - 2.0 standard drink of alcohol Types: 1 - 2 Standard drinks or equivalent per week Comment: social; 1 mixed drink every 2 weeks Drug use: Never ALLERGIES Allergies Allergen Reactions Codeine Itching Other Percodan Oxycodone Hives Oxycodone-Aspirin Vancomycin Other reaction(s): U MEDICATIONS No current facility-administered medications on file prior to encounter. Current Outpatient Medications on File Prior to Encounter Medication Sig Dispense Refill albuterol 108 (90 Base) MCG/ACT inhaler Inhale 2 puffs every 6 hours as needed for wheezing. amLODIPine (Norvasc) 10 MG tablet Take 1 tablet (10 mg) by mouth daily. 90 tablet 1 amoxicillin-clavulanate (Augmentin) 875-125 MG tablet Take 1 tablet by mouth 2 times daily for 7 days. 14 tablet 0 baclofen (Lioresal) 10 MG tablet Take 1 tablet (10 mg) by mouth daily. 30 tablet 0 ergocalciferol (Vitamin D-2) 1.25 MG (68346 UT) capsule Take 1 capsule (1.25 mg) by mouth 1 (one) time per week. 90 capsule 1 Glucose Blood (Blood Glucose Test) strip 4 times daily. hydrOXYzine HCl (Atarax) 25 MG tablet Take 1 tablet (25 mg) by mouth every 8 hours as needed for anxiety. 90 tablet 0 insulin aspart (NovoLOG FLEXPEN) 100 UNIT/ML pen Inject 16 Units under the skin in the morning and 16 Units at noon and 16 Units in the evening and 16 Units before bedtime. Before meals.. 10 mL 1 levothyroxine (Synthroid, Levoxyl) 150 MCG tablet Take 1 tablet (150 mcg) by mouth daily. 30 tablet1 lisinopril 40 MG tablet Take 1 tablet (40 mg) by mouth daily. 90 tablet 1 meloxicam (Mobic) 7.5 MG tablet Take 1 tablet (7.5 mg) by mouth daily. 90 tablet 1 PARoxetine (Paxil) 20 MG tablet Take 1 tablet (20 mg) by mouth every morning. 90 tablet 1 potassium chloride CR (K-Tab) 20 MEQ ER tablet Take 20 mEq by mouth daily. Do not crush, chew, or split. pramipexole (Mirapex) 0.125 MG tablet Take 2 tablets (0.25 mg) by mouth Nightly. 60 tablet 1 rosuvastatin (Crestor) 10 MG tablet Take 1 tablet (10 mg) by mouth daily. 90 tablet 1 zolpidem (Ambien) 10 MG tablet Take 1 tablet (10 mg) by mouth Nightly as needed for sleep. Do not start before December 22, 2022. 30 tablet 0 [DISCONTINUED] insulin aspart (NovoLOG FLEXPEN) 100 UNIT/ML pen Inject 16 Units under the skin. Before meals. REVIEW OF SYSTEMS See HPI Objective: BP 138/57 (BP Location: Right arm) Pulse 80 Temp 36.6 C (97.8 F) (Temporal) Resp 16 SpO2 93% PHYSICAL EXAM Consitutional- {in no apparent distress, alert, and cooperative: Skin - yeast rash gluteal fold and labia area Location: right butt amount and color drainage: small serosang drainage 25% yellow slough, 75% pinksubcutaneous tissues , wound measuring in cm: 1cm x1cm x0.1cm surrounding skin intact. (see photo below ) Wound/Incision 02/15/23 Pressure Injury Buttock Right;Midline (Active) Respiratory -Normal effort, no respiratory distress, no cyanosis Abdomen - soft, nontender, and nondistended Lower Extremities - venous stasis dermatitis noted, lymphedema bilateral legs : Right and left measurements. Calf 48cm Knee to foot 58cm Ankle 26cm Heel to toe 24cm LABS CBC: Lab Results Component Value Date WBC 13.8 (H) 03/01/2023 HGB 11.5 (L) 03/01/2023 HCT 34.9 (L) 03/01/2023 MCV 87.1 03/01/2023 PLT 271 03/01/2023 BMP: Lab Results Component Value Date NA 137 03/01/2023 K 4.3 03/01/2023 CL 102 03/01/2023 CO2 26 03/01/2023 BUN 17 03/01/2023 CREATININE 0.96 03/01/2023 PT/INR: No results found for: PROTIME, INR Prealbumin: No results found for: PREALBUMIN Albumin:No components found for: LABALBU Sed Rate:No results found for: SEDRATE Micro: No components found for: BC Assessment/Plan: Right buttock stage 3PI - Cleanse Hibiclens apply alginate and foam. Daily . And PRN if soiled. Waffle mattress overlay Patient able to move side to side. On own work with therapy with hygiene and mobility in bed Lymphedema - order pumps as outpatient. Wear own compression socks Elevate legs as much as possible Nutritional support Wound Care to follow Please follow up at [facility] wound care [facility] after hospital discharge. Thank you for the consult! Please secure chat me for questions. I personally obtained the conte and critical portions of the history and physical exam. I reviewed the labs, imaging studies, and electronic medical record. I reviewed the chart documentation and discussed the patient with treatment team members. I have edited the note to reflect my clinical findingsand my assessment and plan. Please note, the time of this note does not reflect the time I saw thispatient today, but the time of this documentaton. Portions of this note including HPI, ROS, impression/plan, and examination may have been copied forward from admission to today as to provide important historical information essential in contributing to medical decision making. Documentation has been reviewed and edited as necessary to support clinical decision making for today's visit and to reflect my own independent evaluation of this patient. Decision making for today's visit and to reflectmy own independent evaluation of this patient. * Adam Holt MD - 03/01/2023 11:26 AM EDTAssociated Order(s): IP CONSULT TO GERIATRICS Images from the original note were not included. [facility] Geriatric Medicine Inpatient Consult Service Admission Date: 02/28/2023 Admission Status: INPATIENT Chief Complaint: I couldn't get around and they directed me to the hospital because I was peeing constantly from that UTI. Reason for Appointment Geriatrics consulted for functional decline Assessment/Plan Principal Problem: LING (acute kidney injury) ([facility]) ([facility]) Active Problems: Declining functional status Weakness Anxiety Polypharmacy DNR (do not resuscitate) Insomnia Declining Functional Status/Weakness Likely multifactorial given her recent UTI, advancing age, Type 2 Diabetes and other underlying comorbidities Physical therapy/Occupational Therapy ordered; evals pending Antibiotic(s) treatment (oral augmentin) per primary team Insomnia --patient is listed as previously taking ambien 5mg po hs; recommended weaning this as outpatient; put this recommendation in the discharge summary recommendations. Patient only takes this 3-4 nights per week at home; hasn't ever tried melatonin; I encouraged her trial melatonin instead of ambien due to risks discussed --insomnia order set initiated -= Per my d/w pharmacist Ramona - she recommended starting melatonin and changing paroxetine to at bedtime dosing due to sedating effects of medication. Anxiety Knows she takes hydroxyzine at home about once a day on average. Never tried buspar. Is open to it. --begin buspar 5mg po bid prn --discontinue hydroxyzine Polypharmacy Recommend f/u with geriatrics as outpatient Recommend patient speak with her PCP (primary care provider) to reduce and discontinue hydroxyzine and ambien entirely given falls, weakness, and confusion risk they pose; patient states she understands and will discuss with PCP (primary care provider) Denies recent falls at home Vit D Deficiency/weakness Last vit D was 28 in Jun 2022; rechecking Vit D Goal vit D level 30-60 Begin vit D 1000 IUs daily Low TSH (thyroid function test) Defer to primary care treatment/management Code Status Discussion DNRCCA - patient wishes to be DNRCCA per our discussion at bedside today; I encouraged her to relaythis to her son; I completed paperwork order and gave her a copy and made sure a copy was on her chart. I verbally told nurse Alma at hospital. Dispo Anticipated discharge; patient would be amenable to home with home health if necessary I [phone]. Call in 2 weeks for memory (re)testing once acute issue(s) resolve - order placed in [facility] for follow-up Other I deferred full MMSE today due to somnolence and acute infection (UTI, hyperglycemia) but patient was A&OX3 and had 3/3 recall, knew 911 and President of [place] is Marya. Low concern for underlying memory loss/dementia process as she's independent in ADLs and IADLs and a good historian. Asked for insulin when they served her breakfast this AM at hospital and she knew she hadn't received AM insulin yet. I spent total encounter time: 75 minutes face to face with the patient and/or family discussing thediagnosis and importance of compliance with the treatment plan as well as documenting on the day ofthe visit. In addition, that total time includes the following: -Reviewing previous notes, -Reviewing labs, -Obtaining and/or reviewing separately obtained history, -Ordering prescription medications, tests and procedures, -Communicating results to the patient/family/caregiver, - Counseling/educating the patient/family/caregiver, -Documenting clinical information in the patients electronic record, -Coordination of care for the patient, and -Performing a medically appropriate exam and/or evaluation Subjective: HPI 77 y.o. year-old female presented from home for dysuria, polyuria, back pain, weakness. Per H&P from 02/28/23, Reason for Admission: DM2 with hyperglycemia/weakness/UTI History Obtained From: patient/chart HISTORY OF PRESENT ILLNESS: Radha is a 77 y.o. female with past medical history below who presents with chief complaint listed above. She saw her PCP yesterday for dysuria, polyuria and back pain and was put on augmentin. She hadnot yet started it, symptoms worsened and she presented to the ED. She is very weak. No radiation of the back pain. She denies chest pain, sob, cough, abdominal pain, nausea, vomiting, diarrhea, const ipation, fevers, or chills. Will admit for further evaluation and management. Geriatrics ED screen positive for: lives alone/needs help at home, hospitalized in the last 3 months, falls or trouble walking, takes 5 or more medicines daily, and in worse health than others your age Conversation with caregiver: Per my d/w patient's bedside nurse Alma on 03/01/23 early afternoon: Alma states that patient has been A&OX3 and appropriate and cooperative for her. She had no concerns. Patient slept well overnight. Awoke and ate 75-99% of her breakfast. Had no hallucinations. Knew to call for insulin administration before breakfast. Urinating well. Had slight suprapubic right sided TTP on exam this m orning but only when moderate palpation pressure applied by nursing. No confusion noted. No other concerns. Per my d/w patient at bedside on early afternoon on 03/01/23: she is . Lives alone. Has one son. Has a neighbor who is involved. Is independent in ADLs and IADLs. Still drives without any recent tickets, accidents, getting lost. Knows she's here at [facility] due to UTI. States she was feeling more weak and peeing a lot at home so she came here. States she wants to be DNRCCA but doesn't think her son knows that. Does not have a POA. Tells me she has insomnia for which she takes ambien 5mg nightly about 3-4 nights per week at home. Never tried melatonin. Is open to it. Knows she takes hydroxyzine at home about once a day on average. Never tried buspar. Is open to it. Denies recent falls at home. Tells me I haven't slept much lately. But I slept well overnight. Per my d/w pharmacist Ramona - she recommended starting melatonin and changing paroxetine to at bedtime dosing due to sedating effects of medication. Advance Care Planning Healthcare Power ofAttorney: No Financial Power of Director Compensation: No Living Will:No Code Status: DNRCCA - patient wishes to be DNRCCA per our discussion at bedside today; I encouragedher to relay this to her son; I completed paperwork order and gave her a copy and made sure a copy was on her chart. I verbally told nurse Alma at hospital. Allergies Allergen Reactions Codeine Itching Other Percodan Oxycodone Hives Oxycodone-Aspirin Vancomycin Other reaction(s): U Current Facility-Administered Medications: acetaminophen (Tylenol) tablet 650 mg, 650 mg, Oral, q6h PRN, 650 mg at 03/01/23 0635 OR acetaminophen (Tylenol) suppository 650 mg, 650 mg, Rectal, q6h PRN, Gabrielle Finch MD albuterol 108 (90 Base) MCG/ACT inhaler 2 puff, 2 puff, Inhalation, q6h PRN, Gabrielle Finch MD amLODIPine (Norvasc) tablet 10 mg, 10 mg, Oral, Daily, Gabrielle Finch MD, 10 mg at 02/28/232054 amoxicillin-clavulanate (Augmentin) 875-125 MG per tablet 1 tablet, 1 tablet, Oral, BID, Gabrielle Finch MD, 1 tablet at 03/01/23937 baclofen (Lioresal) tablet 10 mg, 10 mg, Oral, Daily, Gabrielle Finch MD, 10 mg at 02/28/232054 busPIRone (Buspar) tablet 5 mg, 5 mg, Oral, BID PRN, Adam Holt MD dextrose 5 % infusion, 100 mL/hr, IntraVENous, PRN, Gabrielle Finch MD dextrose 50 % solution 12.5 g, 12.5 g, IntraVENous, PRN, Tasneem Whaley MD enoxaparin (Lovenox) syringe 40 mg, 40 mg, SubCUTAneous, Daily, Gabrielle Finch MD, 40 mg at 03/01/23937 glucagon (human recombinant) injection 1 mg, 1 mg, IntraMUSCular, PRN, Gabrielle Finch MD glucose oral gel 15 g, 15 g, Oral, PRN, Tasneem Whaley MD Influenza Vac A&B SA Adj quadrivalent (Fluad) vaccine 0.5 mL, 0.5 mL, IntraMUSCular, Prior to discharge, Gabrielle Finch MD Insulin Lispro (Humalog) injection 0-12 Units, 0-12 Units, SubCUTAneous, TID WC, 2 Units at 03/01/23937 AND Insulin Lispro (Humalog) injection 0-12 Units, 0-12 Units, SubCUTAneous, Nightly, Gabrielle Finch MD, 4 Units at 02/28/232053 Insulin Lispro (Humalog) injection 16 Units, 16 Units, SubCUTAneous, 4x daily AC & HS, Gabrielle Finch MD, 16 Units at 03/01/23 0757 levothyroxine (Synthroid, Levoxyl) tablet 150 mcg, 150 mcg, Oral, Daily, Gabrielle Finch MD, 150 mcg at 03/01/23 0634 melatonin tablet 6 mg, 6 mg, Oral, Nightly, Adam Holt MD ondansetron ODT (Zofran-ODT) disintegrating tablet 4 mg, 4 mg, Oral, q8h PRN OR ondansetron (Zofran) injection 4 mg, 4 mg, IntraVENous, q6h PRN, Gabrielle Finch MD [START ON 03/02/2023] PARoxetine (Paxil) tablet 20 mg, 20 mg, Oral, Nightly, Adam Holt MD polyethylene glycol (PEG) 3350 (Miralax) packet 17 g, 17 g, Oral, Daily PRN, Gabrielle Finch MD pramipexole (Mirapex) tablet 0.25 mg, 0.25 mg, Oral, Nightly, Gabrielle Finch MD, 0.25 mg at 02/28/236 rosuvastatin (Crestor) tablet 10 mg, 10 mg, Oral, Daily, Gabrielle Finch MD, 10 mg at 02/28/232054 sodium chloride 0.9 % infusion, 75 mL/hr, IntraVENous, Continuous, Gabrielle Finch MD, Last Rate: 75 mL/hr at 02/28/232226, 75 mL/hr at 02/28/232226 Past Medical History: Diagnosis Date Acquired lymphedema Allergic Anxiety Arthritis Asthma Candidiasis of vulva and vagina CKD (chronic kidney disease) Depression Dietary counseling and surveillance Hyperlipidemia Hyperparathyroidism (HCC) Hypertension Hypothyroidism Malaise and fatigue Morbid obesity (HCC) Muscle weakness Nevus, non-neoplastic Pain in limb Pure hypercholesterolemia RLS (restless legs syndrome) Type 2 diabetes mellitus (HCC) Varicella Past Surgical History: Procedure Laterality Date APPENDECTOMY CHOLECYSTECTOMY 1979 COLONOSCOPY 06/19/2008 COLONOSCOPY W/ BIOPSIES AND POLYPECTOMY N/A 12/07/2022 Performed by Avery Marshall DO at [facility] ENDOSCOPY EYE SURGERY Bilateral early 90's LUNG REMOVAL, PARTIAL Left ROTATOR CUFF REPAIR Left TONSILLECTOMY Social History Social History Tobacco Use Smoking status: Never Smokeless tobacco: Never Substance Use Topics Alcohol use: Yes Alcohol/week: 1.0 - 2.0 standard drink of alcohol Types: 1 - 2 Standard drinks or equivalent per week Comment: social; 1 mixed drink every 2 weeks Social History Social History Narrative Not on file Patient Currently Lives: home alone Level of FamilySupport: son local; neighbor involved Community Resources: no Elder Abuse: no Education Level: High School graduate Family History Family History Problem Relation Name Age of Onset Mental illness Mother GHANSHYAM COLEY Depression Mother GHANSHYAM COLEY Heart disease Father LATHA COLEY High Blood Pressure Father LATHA COLEY Asthma Father LATHA COLEY Hypertension Father LATHA COLEY Diabetes Brother CATRACHO COLEY Family Status Relation Name Status Mother GHANSHYAM COLEY Father LATHA COLEY Brother CATRACHO COLEY (Not Specified) Parents are as above Review of Systems Constitutional: Negative for chills and fever. Eyes: Negative for pain and visual disturbance. Respiratory: Negative for cough and shortness of breath. Cardiovascular: Negative for chest pain and leg swelling. Gastrointestinal: Negative for abdominal pain, constipation, diarrhea, nausea and vomiting. Genitourinary: Positive for frequency and urgency. Negative for flank pain and hematuria. Musculoskeletal: Negative for arthralgias and gait problem. Skin: Negative for rash and wound. Neurological: Positive for weakness. Negative for headaches. Psychiatric/Behavioral: Positive for sleep disturbance (but slept better last night after several nights of not sleeping well). Negative for dysphoric mood and suicidal ideas. The patient is not nervous/anxious. Depression Screening: PHQ-2 Over the past 2 weeks, how often have you been botheredby any of the following problems? 1) Little interest or pleasure in doing things: No 2)Felling down, depressed, or hopeless: No Functional Status (I: Independent, A: Assisted, D: Dependent) Patient reports to Social Work(er) being largely indpendent in ADLs and IADLs living at home alone with local son and neighbor involved and willing to help if/when she needs the help. Per CM note from TONI Jackson on 03/01/23, Care Managment Initial Assessment Date: 03/01/2023 Patient Name: Radha Sandoval : 1945 Patient Information Source of Information: Patient Cognition/Language: WFL - Within Functional Limits Permission given to speak with patient ambulatory service representative/caregiver as indicated: Yes Confirmation of Payer with patient/family: Yes Payer Name: [employer] : No Confirmation of Primary Care Physician: Confirmed PCP Name: John Seen in last 2 years?: Yes Primary Caregiver: Self If assistance needed, confirmed caregiver ready, willing and able to care for patient at discharge:Yes Confirmed with: per pt, son or neighbor Living Arrangements Current Residence: House Number of Floors 1 (laundry in basement) Number of Entry Steps: 2 Bed/Bath Levels: Facility: Facility Name: Plan to Return: Yes Lives with: Alone Support Systems: Children, Family members, Friends/neighbors Activities of Daily Living Ambulation: Assistance (cane) Bathing/Dressing: Independent Elimination/Continence/Toileting: Independent Feeding: Independent Who Assists with Activities of Daily Living: Instrumental Activities of Daily Living Prescription Coverage: Yes Pharmacy Used: [facility] [place] Medication Management: Independent Transportation/Shopping: Independent Transportation Mode: Car Needs Assistance with Transportation at Discharge: No (son or neighbor) Meal Preparation: Independent Laundry/Cleaning: Independent Finances/Bill Paying: Independent Communication: Independent Types of Care Services/Equipment Utilized Care Services: Dialysis Type: NA Durable Medical Equipment: Cane, Walker, Shower Seat, Glucometer Patient's Goal/Discharge Plan Patient expects to be discharged to: Home Discharge Planning Actions: Continue to follow Patient's Choice Rights and [employer] and Collaborative Relationships Disclosed as Indicated for Post-Acute Care: NA Interdisciplinary Team Engagement: PT/OT, Home Health Care Objective: BP 138/57 (BP Location: Right arm) Pulse 80 Temp 36.6 C (97.8 F) (Temporal) Resp 16 SpO2 93% No intake or output data in the 24 hours ending 03/01/23 1231 Wt Readings from Last 3 Encounters: 02/27/23 234 lb (106 kg) 02/15/23 228 lb (103 kg) 02/07/23 242 lb 6.4 oz (110 kg) Physical Exam Vitals reviewed. Constitutional: Appearance: Normal appearance. She is obese. Comments: 77 yo woman lying supine sleeping in hospital bed; easily aroused by low-volume voice; pleasant; follows all commands; moves all extremities independently; sleepy and at first nodding off during questioning but later becomes a little more alert; good historian; requires me to wake her back up a few times during interview and physical exam but is A&OX3 and gets all questions right regarding 911, current [place] President, 3/3 delayed recall, reason for admission. She's A&OX3. Conversant. Able to voice her stance on being DNRCCA and why. HENT: Head: Normocephalic and atraumatic. Right Ear: No decreased hearing (no hearing aids in place) noted. Left Ear: No decreased hearing noted. Mouth/Throat: Mouth: Mucous membranes are moist. Dentition: Abnormal dentition. Has dentures (upper full dentures in place). Eyes: Extraocular Movements: Extraocular movements intact. Conjunctiva/sclera: Conjunctivae normal. Neck: Thyroid: No thyromegaly. Cardiovascular: Rate and Rhythm: Normal rate and regular rhythm. Pulmonary: Effort: Pulmonary effort is normal. Breath sounds: Normal breath sounds. Abdominal: General: Bowel sounds are normal. Palpations: Abdomen is soft. Hernia: No hernia is present. Genitourinary: Comments: External cath draining blaine colored slightly cloudy ample urine Musculoskeletal: Cervical back: Neck supple. Right lower leg: No edema. Left lower leg: No edema. Skin: General: Skin is warm and dry. Neurological: General: No focal deficit present. Mental Status: She is alert and oriented to person, place, and time. Mental status is at baseline. Gait: Gait abnormal (I did not personally assess but OT evaluated and confirmed abnormal gait/weakness). Psychiatric: Mood and Affect: Mood normal. Behavior: Behavior normal. Mini-Mental Status Exam: Deferred due to somnolence but patient was A&OX3 and had 3/3 recall, knew 911 and President of [place] is Marya. Low concern for underlying memory loss. Clock Drawing Test: deferred; patient still drives; no recent accidents, tickets, getting lost Labs and Imaging: Recent Results (from the past 24 hour(s)) CBC auto differential Collection Time: 02/28/23 12:32 PM Result Value Ref Range Auto WBC 12.3 (H) 3.6 - 10.7 10*3/uL RBC 4.11 3.8 - 5.20 10*6/uL Hemoglobin 11.5 (L) 11.7 - 16.0 g/dL Hematocrit 36.0 35.0 - 47.0 % MCV 87.5 80.0 - 98.0 fL MCH 28.0 26.0 - 34.0 pg MCHC 32.0 32.0 - 36.0 % RDW 13.8 11.5 - 14.5 % Platelets 278 140 - 440 10*3/uL MPV 8.6 7.4 - 12.4 fL nRBC 0.0 0.0 - 2.0 /100 WBCs Neutrophils Relative 83.2 (H) 40.0 - 80.0 % Lymphocytes Relative 6.4 (L) 20.0 - 40.0 % Monocytes Relative 9.0 2.0 - 10.0 % Eosinophils Relative 0.9 (L) 1.0 - 6.0 % Basophils Relative 0.5 0.0 - 2.0 % Neutrophils Absolute 10.2 (H) 1.8 - 7.0 10*3/uL Lymphocytes Absolute 0.8 (L) 1.0 - 4.3 10*3/uL Monocytes Absolute 1.1 (H) 0.0 - 0.8 10*3/uL Eosinophils Absolute 0.1 0.0 - 0.5 10*3/uL Basophils Absolute 0.1 0.0 - 0.2 10*3/uL Comprehensive metabolic panel Collection Time: 02/28/23 12:32 PM Result Value Ref Range SODIUM 130 (L) 135 - 145 mmol/L POTASSIUM 4.0 3.5 - 5.1 mmol/L CHLORIDE 96 (L) 98 - 107 mmol/L CARBON DIOXIDE 26 22 - 30 mmol/L ANION GAP 8 3 - 13 mmol/L UREA NITROGEN 20 (H) 7 - 17 mg/dL CREATININE 1.22 (H) 0.52 - 1.04 mg/dL GLUCOSE 483 (HH) 70 - 100 mg/dL CALCIUM 8.4 8.4 - 10.4 mg/dL AST (SGOT) 24 15 - 46 U/L ALT 18 0 - 34 U/L ALKALINE PHOSPHATASE 119 38 - 126 U/L ALBUMIN 3.7 3.5 - 5.0 g/dL BILIRUBIN, TOTAL 0.5 0.2 - 1.3 mg/dL TOTAL PROTEIN 6.6 6.3 - 8.2 g/dL eGFR 45.2 (L) >60.0 mL/min/1.73m*2 Complete Urinalysis Collection Time: 02/28/23 2:12 PM Result Value Ref Range Color, Urine Light Yellow Lt. Yellow Clarity, Urine Turbid (A) Clear pH, Urine 5.0 5.0 - 8.0 pH Leukocytes, Urine 250 (A) Negative Sandeep/uL Nitrite, Urine Positive (A) Negative Protein, Urine 20 (A) Negative mg/dL Glucose, Urine >1,000 (A) Normal (<70) mg/dL Bilirubin, Urine Negative Negative mg/dL Ketones, Urine Negative Negative mg/dL Urobilinogen, Urine Normal Normal (0-1) mg/dL Blood, Urine Negative Negative mg/dL RBC, Urine 0-2 0 - 2 /HPF WBC, Urine 11-25 (A) 0 - 5 /HPF Squamous Epithelial, Urine 3-5 3 - 5 /HPF Bacteria, Urine Moderate (A) Negative /HPF Mucus, Urine Few Negative /LPF Yeast, Urine Few (A) Negative /HPF Hyaline Casts, Urine 3-5 (A) Negative /LPF Granular Casts, Urine 0-2 (A) Negative /LPF WBC Clumps, Urine Occasional (A) Negative /HPF SPECIFIC GRAVITY OF URINE (NUMERIC) 1.020 1.005 - 1.030 POCT glucose meter Collection Time: 02/28/23 6:08 PM Result Value Ref Range Glucose 197 (H) 70 - 100 mg/dL POCT glucose meter Collection Time: 02/28/23 8:24 PM Result Value Ref Range Glucose 245 (H) 70 - 100 mg/dL Procalcitonin Test Collection Time: 03/01/23 3:44 AM Result Value Ref Range PROCALCITONIN 0.05 0.00 - 0.09 ng/mL CBC auto differential Collection Time: 03/01/23 3:44 AM Result Value Ref Range Auto WBC 13.8 (H) 3.6 - 10.7 10*3/uL RBC 4.00 3.8 - 5.20 10*6/uL Hemoglobin 11.5 (L) 11.7 - 16.0 g/dL Hematocrit 34.9 (L) 35.0 - 47.0 % MCV 87.1 80.0 - 98.0 fL MCH 28.7 26.0 - 34.0 pg MCHC 33.0 32.0 - 36.0 % RDW 13.6 11.5 - 14.5 % Platelets 271 140 - 440 10*3/uL MPV 8.5 7.4 - 12.4 fL nRBC 0.0 0.0 - 2.0 /100 WBCs Neutrophils Relative 74.6 40.0 - 80.0 % Lymphocytes Relative 12.6 (L) 20.0 - 40.0 % Monocytes Relative 10.8 (H) 2.0 - 10.0 % Eosinophils Relative 1.4 1.0 - 6.0 % Basophils Relative 0.6 0.0 - 2.0 % Neutrophils Absolute 10.3 (H) 1.8 - 7.0 10*3/uL Lymphocytes Absolute 1.7 1.0 - 4.3 10*3/uL Monocytes Absolute 1.5 (H) 0.0 - 0.8 10*3/uL Eosinophils Absolute 0.2 0.0 - 0.5 10*3/uL Basophils Absolute 0.1 0.0 - 0.2 10*3/uL Comprehensive metabolic panel Collection Time: 03/01/23 3:44 AM Result Value Ref Range SODIUM 137 135 - 145 mmol/L POTASSIUM 4.3 3.5 - 5.1 mmol/L CHLORIDE 102 98 - 107 mmol/L CARBON DIOXIDE 26 22 - 30 mmol/L ANION GAP 9 3 - 13 mmol/L UREA NITROGEN 17 7 - 17 mg/dL CREATININE 0.96 0.52 - 1.04 mg/dL GLUCOSE 123 (H) 70 - 100 mg/dL CALCIUM 8.3 (L) 8.4 - 10.4 mg/dL AST (SGOT) 24 15 - 46 U/L ALT 16 0 - 34 U/L ALKALINE PHOSPHATASE 102 38 - 126 U/L ALBUMIN 3.1 (L) 3.5 - 5.0 g/dL BILIRUBIN, TOTAL 0.4 0.2 - 1.3 mg/dL TOTAL PROTEIN 6.0 (L) 6.3 - 8.2 g/dL eGFR 60.3 >60.0 mL/min/1.73m*2 Hemoglobin A1c Collection Time: 03/01/23 3:44 AM Result Value Ref Range HEMOGLOBIN A1C 12.6 (H) <5.7 % ESTIMATED AVERAGE GLUCOSE 315 mg/dL POCT glucose meter Collection Time: 03/01/23 7:35 AM Result Value Ref Range Glucose 172 (H) 70 - 100 mg/dL POCT glucose meter Collection Time: 03/01/23 11:22 AM Result Value Ref Range Glucose 153 (H) 70 - 100 mg/dL Lab Results Component Value Date TSH 0.03 (L) 02/27/2023 No components found for: B12 Lab Results Component Value Date VITD25 28 (L) 06/30/2022 Reviewed: active problem list, medication list, allergies, family history, notes from last encounter, lab results Follow-up: 1-2 days Communication of Consult Recommendations: Assessment and recommendations communicated to primary service I used [employer] messaging to message Dr. Finch on 03/01/23 at 12:35 to notify that geriatrics consult note has been completed and to page or call my personal cell with any questions. * Michelle Valle RN - 03/01/2023 9:33 AM EDTAssociated Order(s): IP CONSULT TO MOLDER APPRENTICE This patient is not a new diabetic or new to insulin therapy and therefore does not meet our current criteria for the inpatient diabetes education service. The clinical bedside RN should provide any necessary diabetes education using the Diabetes SurvivalSkills Booklet available on the unit. Please consider a dietary consult if appropriate and if not already ordered. Contact Meds to Beds pharmacist for assistance if a new glucometer or any associated supplies are needed. Thank you. Elder MUÑOZ,BSN,[facility] * Jelly Paz, SOCIAL STAFF WORKER - PANTOGRAPH I ENGRAVER - 03/01/2023 8:03 AM EDTAssociated Order(s): IP CONSULT TO ENDOCRINOLOGY Department of Internal Medicine Division of Endocrinology, Diabetes, & Metabolism Endocrinology Note Patient Name: Radha Sandoval : 1945 AGE: 77 y.o. Room/Bed: [facility]/[address] Admission Date: 02/28/2023 Visit Date: 03/01/2023 Reason for Endocrine Consult: DM-Uncontrolled Provider/Team Requesting Consult: Dr. Finch PCP: Shiv Lopez MD Outpt Grease Machine Worker: No ASSESSMENT: Type II diabetes with hyperglycemia, with rodent exterminator insulin use Postoperative hypothyroidism PLAN: Humalog 6 units TID with meals Humalog Medium dose sliding scale TID with meals Lantus 19 units daily Check T4 Levothyroxine 150 mcg daily Patient received 48 units in past 24 hours ICU goal <180 GMF goal <150 POCT BG ACHS Hypoglycemia per protocol Carb controlled diet ANTICIPATED ENDOCRINE HOME GOING RECOMMENDATIONS: Optimized for Discharge from Endocrine standpoint: No Home Going Endocrine Rx Recommendations-- Humalog Dose to be determined Lantus Dose to be determined. Levothyroxine Outpt Follow Up-- PCP SUBJECTIVE/HPI: CHIEF COMPLAINT: Chief Complaint Patient presents with Back Pain Patient presents for lower back pain and burning and pain with urination. WBC: 13.8 Patient alert and oriented sitting up in bed. Patient reports she lives alone and manages insulin independently. Keeps insulin in fridge. Does not miss doses of insulin Checks blood sugars regularly and recently blood sugars have been in 400s. Eats three meals daily: Breakfast 10 am, Lunch 2 pm, Dinner: 8 pm Latest Reference Range & Units 02/28/23 14:12 pH, Urine 5.0 - 8.0 pH 5.0 Clarity, Urine Clear Turbid ! Color, Urine Lt. Yellow Light Yellow WBC Clumps, Urine Negative /HPF Occasional ! Squamous Epithelial, Urine 3 - 5 /HPF 3-5 Bacteria, Urine Negative /HPF Moderate ! RBC, Urine 0 - 2 /HPF 0-2 WBC, Urine 0 - 5 /HPF 11-25 ! Urobilinogen, Urine Normal (0-1) mg/dL Normal Ketones, Urine Negative mg/dL Negative Blood, Urine Negative mg/dL Negative Glucose, Urine Normal (<70) mg/dL >1,000 ! Bilirubin, Urine Negative mg/dL Negative Protein, Urine Negative mg/dL 20 ! Nitrite, Urine Negative Positive ! LEUKOCYTE ESTERASE Negative Sandeep/uL 250 ! !: Data is abnormal Acquired lymphedema Allergic Anxiety Arthritis Asthma Candidiasis of vulva and vagina CKD (chronic kidney disease) Depression Dietary counseling and surveillance Hyperlipidemia Hyperparathyroidism (HCC) Hypertension Hypothyroidism Malaise and fatigue Morbid obesity (HCC) Muscle weakness Nevus, non-neoplastic Pain in limb Pure hypercholesterolemia RLS (restless legs syndrome) Type 2 diabetes mellitus (HCC) Varicella Glucose Date/Time Value Ref Range Status 03/01/2023 07:35 AM 172 (H) 70 - 100 mg/dL Final 02/28/2023 08:24 PM 245 (H) 70 - 100 mg/dL Final 02/28/2023 06:08 PM 197 (H) 70 - 100 mg/dL Final 12/07/2022 11:25 AM 179 (H) 70 - 100 mg/dL Final 12/07/2022 06:29 AM 158 (H) 70 - 100 mg/dL Final 12/07/2022 04:51 AM 160 (H) 70 - 100 mg/dL Final Glucose Blood, POC Date/Time Value Ref Range Status 02/27/2023 03:25 PM 494 mg/dL Final Type of DM: 2 Onset of DM: 1st diagnosed in her late 40's Home DM Medication Regimen: Humalog 16 units ACHS DM control (last A1c/glucose data): Lab Results Component Value Date HGBA1C 9.0 (H) 10/04/2022 Diabetes Medications patient has been on overtime: Metformin- since diagnosis. She has been having diarrhea in [id number], smt severe Glimepiride- started in 2015 Trulicity started in November 2017 lantus Humalog Thyroid disorder: Postoperative Hypothyroidism Onset of thyroid disorder: Unknown Home regimen: LT4 150 mcg daily Biotin use: No Patient reports thyroid surgery in her distant past but can not recall why or if they performed total thyroidectomy. Patient has been on LT4 since surgery. She reports taking Levothyroxine nightly with other medications. Patient has been taking LT4 in this way for a number of years Review of Systems Constitutional: Negative for fatigue. Respiratory: Negative for shortness of breath. Cardiovascular: Negative for chest pain. Endocrine: Negative for polydipsia, polyphagia and polyuria. Skin: Positive for wound. All other systems reviewed and are negative. ROS negative except for those mentioned in HPI. OBJECTIVE: Vitals: 02/28/23 1744 02/28/23 1810 02/28/23202403/01/23 0004 BP: 139/89 (!) 144/65 104/64 (!) 136/48 BP Location: Left arm Patient Position: Sitting Pulse: 73 73 78 72 Resp: 16 18 16 Temp: 36.8 C (98.3 F) 36.4 C (97.6 F) TempSrc: Temporal Temporal SpO2: 97% 97% 95% 96% Physical Exam Vitals and nursing note reviewed. Constitutional: Appearance: She is ill-appearing. HENT: Head: Normocephalic. Eyes: Conjunctiva/sclera: Conjunctivae normal. Cardiovascular: Rate and Rhythm: Normal rate and regular rhythm. Pulses: Normal pulses. Heart sounds: Normal heart sounds. Pulmonary: Effort: Pulmonary effort is normal. No respiratory distress. Skin: General: Skin is warm. Neurological: General: No focal deficit present. Mental Status: She is alert and oriented to person, place, and time. Psychiatric: Mood and Affect: Mood normal. Behavior: Behavior normal. 24 hour intake/output:No intake or output data in the 24 hours ending 03/01/23 0804 Diet: Adult diet Regular; Low Sodium (2 gm); 4 carb choices (60 gm/meal) Medications (as per EMR): HomeMeds: Current Outpatient Medications Medication Instructions albuterol 108 (90 Base) MCG/ACT inhaler 2 puffs, Inhalation, Every 6 hours PRN amLODIPine (NORVASC) 10 mg, Oral, Daily amoxicillin-clavulanate (Augmentin) 875-125 MG tablet 1 tablet, Oral, 2 times daily baclofen (LIORESAL) 10 mg, Oral, Daily ergocalciferol (VITAMIN D-2) 1.25 mg, Oral, Weekly Glucose Blood (Blood Glucose Test) strip 4 times daily hydrOXYzine HCl (ATARAX) 25 mg, Oral, Every 8 hours PRN levothyroxine (SYNTHROID, LEVOXYL) 150 mcg, Oral, Daily lisinopril 40 mg, Oral, Daily meloxicam (MOBIC) 7.5 mg, Oral, Daily NovoLOG FLEXPEN 16 Units, SubCUTAneous, 4 times daily, Before meals. PARoxetine (PAXIL) 20 mg, Oral, Every morning potassium chloride CR (K-Tab) 20 MEQ ER tablet 20 mEq, Oral, Daily, Do not crush, chew, or split. pramipexole (MIRAPEX) 0.25 mg, Oral, Nightly rosuvastatin (CRESTOR) 10 mg, Oral, Daily zolpidem (AMBIEN) 10 mg, Oral, Nightly PRN Scheduled Meds:amLODIPine, 10 mg, Oral, Daily amoxicillin-clavulanate, 1 tablet, Oral, BID baclofen, 10 mg, Oral, Daily enoxaparin, 40 mg, SubCUTAneous, Daily influenza, 0.5 mL, IntraMUSCular, Prior to discharge insulin lispro, 0-12 Units, SubCUTAneous, TID WC And insulin lispro, 0-12 Units, SubCUTAneous, Nightly insulin lispro, 16 Units, SubCUTAneous, 4x daily AC & HS levothyroxine, 150 mcg, Oral, Daily PARoxetine, 20 mg, Oral, q AM pramipexole, 0.25 mg, Oral, Nightly rosuvastatin, 10 mg, Oral, Daily Continuous Infusions:sodium chloride, 75 mL/hr, Last Rate: 75 mL/hr (02/28/232226) PRN Meds:PRN medications: acetaminophen OR acetaminophen, albuterol, dextrose, dextrose, dextrose, dextrose, glucagon (rDNA), glucagon (rDNA), glucose, glucose, hydrOXYzine pamoate, ondansetron ODT OR ondansetron, polyethylene glycol (PEG) 3350, zolpidem Diagnostic Workup: I reviewed pertinent Laboratory results, Radiographic results, and Other Clinical Notes at the timeof today's encounter. Labs: No components found for: LABA1C No components found for: EAG Lab Results Component Value Date NA 137 03/01/2023 K 4.3 03/01/2023 CL 102 03/01/2023 CO2 26 03/01/2023 BUN 17 03/01/2023 CREATININE 0.96 03/01/2023 GLUCOSE 123 (H) 03/01/2023 CALCIUM 8.3 (L) 03/01/2023 Lab Results Component Value Date CHOL 160 06/22/2021 CHOL 222 (A) 05/20/2021 CHOL 208 (A) 02/16/2021 Lab Results Component Value Date TRIG 114 06/22/2021 TRIG 124 05/20/2021 TRIG 93 02/16/2021 Lab Results Component Value Date HDL 70 (H) 06/22/2021 HDL 71 (H) 05/20/2021 HDL 53 02/16/2021 No results found for: LDLCALC No results found for: VLDL Lab Results Component Value Date CHOLHDLRATIO 2 06/22/2021 CHOLHDLRATIO 3 05/20/2021 CHOLHDLRATIO 4 02/16/2021 No results found for: [id number] Lab Results Component Value Date TSH 0.03 (L) 02/27/2023 Radiology reportsas per the Radiologist Radiology: CT abdomen pelvis wo IV contrast Result Date: 02/28/2023 Patient Name: RADHA SANDOVAL : 1945 [facility] [id number] ExamDate/Time: 02/28/2023 13:07 Procedure: CT ABDOMEN PELVIS WO IV CONTRAST Ordering Provider: WHALEY BETHANY Reason For Exam: FLANK PAIN CT SCAN OF THE ABDOMEN AND PELVIS WITHOUT CONTRAST: INDICATION: Flank pain and dysuria COMPARISON: None. CT scans of the abdomen and pelvis were performed without oral and intravenous contrast administration, with images from the lung bases through the pubic symphysis. The images are reviewed in the axial, sagittal and coronal planes. Dose reduction was employed with automated exposure control. The lung bases are clear. The cardiac silhouette is satisfactory. The liver is normal in size, shape and attenuation. There are no focal liver masses. The gallbladder is surgically absent. No intra or extrahepatic biliary ductal dilatation is appreciated. The pancreas is unremarkable. The spleen is unremarkable. Evaluation of the upper GI tract demonstrates the stomach to be unremarkable. The duodenum is satisfactory in appearance. The small bowel is unremarkable. There is no mucosal thickening. No zone of transition is appreciated. There is no free fluid nor free air. There is a small fat-containing umbilical hernia. Evaluation of the colon demonstrate no evidence of obstruction or mass lesion. Scattered diverticuli are present without evidence of acute diverticulitis There is no mucosal thickening of the colon. The appendix is not clearly visualized. The adrenal glands are normal. Bilateral renal cysts are present. The largest cyst involves the midportion of the left kidney, is exophytic and measures up to 4.8 cm. Scans through the pelvis demonstrates extensive rectosigmoid diverticulosis without acute diverticulitis. There is mild mesentericstranding adjacent to the proximal and mid sigmoid colon which may relate to changes associated with prior episodes of diverticulitis. The bladder is unremarkable. The remainder of the pelvic contents are unremarkable. There is no mass or adenopathy. There is no free fluid. Arthritic changes of thespine are present with multilevel disc space narrowing and vacuum disc as well as endplate sclerosis and marginal spurring. The retroperitoneum is satisfactory in appearance without evidence of adenop athy. Atherosclerotic changes of the aorta and iliac arteries are noted. Colonic diverticulosis without evidence of acute diverticulitis. Bilateral renal cysts, the largestcyst is on the left measuring up to 4.8 cm. Report Dictated on Electronically Signed By: Jb Ahmadi DO Electronically Signed Date/Time: 02/28/2023 1:44 PM EDT History/Other: Past Medical History: Past Medical History: Diagnosis Date Acquired lymphedema Allergic Anxiety Arthritis Asthma Candidiasis of vulva and vagina CKD (chronic kidney disease) Depression Dietary counseling and surveillance Hyperlipidemia Hyperparathyroidism (HCC) Hypertension Hypothyroidism Malaise and fatigue Morbid obesity (HCC) Muscle weakness Nevus, non-neoplastic Pain in limb Pure hypercholesterolemia RLS (restless legs syndrome) Type 2 diabetes mellitus (HCC) Varicella Past Surgical History: Past Surgical History: Procedure Laterality Date APPENDECTOMY CHOLECYSTECTOMY 1979 COLONOSCOPY 06/19/2008 COLONOSCOPY W/ BIOPSIES AND POLYPECTOMY N/A 12/07/2022 Performed by Avery Marshall DO at [facility] ENDOSCOPY EYE SURGERY Bilateral early 90's LUNG REMOVAL, PARTIAL Left ROTATOR CUFF REPAIR Left TONSILLECTOMY Allergy(ies): Allergies Allergen Reactions Codeine Itching Other Percodan Oxycodone Hives Oxycodone-Aspirin Vancomycin Other reaction(s): U Family History: Family History Problem Relation Name Age of Onset Mental illness Mother GHANSHYAM COLEY Depression Mother GHANSHYAM COLEY Heart disease Father LATHA COLEY High Blood Pressure Father LATHA COLEY Asthma Father LATHA COLEY Hypertension Father LATHA COLEY Diabetes Brother CATRACHO COLEY Social History: Social History Tobacco Use Smoking status: Never Smokeless tobacco: Never Vaping Use Vaping Use: Never used Substance Use Topics Alcohol use: Yes Alcohol/week: 1.0 - 2.0 standard drink of alcohol Types: 1 - 2 Standard drinks or equivalent per week Comment: social; 1 mixed drink every 2 weeks Drug use: Never Portions of the information within this encounter were entered using an electronic dictation system. Best attempts were made to edit/proofread the information prior to note completion. Despite the review of information, some errors may remain. If there are questions related to the information contained within the note please contact the signing physician directly. I spent 75 minutes with the pt which involved coordination of care, medical evaluation, review of records, and/or counseling of the pt regarding his/her condition/disease state/prognosis on the date of this note. documented in this [facility]09-13-2023 NoteHospitalist Progress Note 03/01/2023 [id number]: Please secure chat me for patient care issues. [id number]: Please secure chat [facility] Hospitalist for any issues. Subjective: Admit Date: 02/28/2023 PCP: Shiv Lopez MD [facility] Interval History: Feels better. Weak. Tolerating diet. Pain markedly improved. She denies chest pain, sob, cough, abdominal pain, nausea, vomiting, diarrhea, constipation, fevers, or chills. D/w pt and Geriatrics separately. Adult diet Regular; Low Sodium (2 gm); 4 carb choices (60 gm/meal) @[id number]@ 24HR INTAKE/OUTPUT: No intake or output data in the 24 hours ending 03/01/23 1316 Past Medical History: Past Medical History: Diagnosis Date Acquired lymphedema Allergic Anxiety Arthritis Asthma Candidiasis of vulva and vagina CKD (chronic kidney disease) Depression Dietary counseling and surveillance Hyperlipidemia Hyperparathyroidism (HCC) Hypertension Hypothyroidism Malaise and fatigue Morbid obesity (HCC) Muscle weakness Nevus, non-neoplastic Pain in limb Pure hypercholesterolemia RLS (restless legs syndrome) Type 2 diabetes mellitus (HCC) Varicella LABS: CBC: Recent Labs 02/27/23 1551 02/28/23 1232 03/01/23 0344 WBC 10.1 12.3* 13.8* RBC 4.40 4.11 4.00 HGB 12.9 11.5* 11.5* HCT 40.1 36.0 34.9* MCV 91.1 87.5 87.1 RDW 12.1 13.8 13.6 PLT 362 278 271 BMP: Recent Labs 02/27/23 15502/28/23 1232 03/01/23 0344 NA -- 130* 137 K -- 4.0 4.3 CL -- 96* 102 CO2 24 26 26 BUN 23 20* 17 CREATININE 1.33* 1.22* 0.96 GLUCOSE 524* 483* 123* CALCIUM 9.1 8.4 8.3* ANIONGAP -- 8 9 LIVER PROFILE: Recent Labs 02/27/23155002/28/23 1232 03/01/23 0344 AST 18 24 24 ALT 17 18 16 BILITOT 0.6 0.5 0.4 ALKPHOS 122 119 102 PROT 6.9 6.6 6.0* PT/INR: No results for input(s): PROTIME, INR in the last 72 hours. CARDIAC ENZYMES: No results for input(s): TROPONINI in the last 72 hours. Procalcitonin: Lab Results Component Value Date PROCAL 0.05 03/01/2023 COVID-19 PCR: No results for input(s): COVID19 in the last 72 hours. Objective: Vitals: BP 138/57 (BP Location: Right arm) Pulse 80 Temp 36.6 ?C (97.8 ?F) (Temporal) Resp 16 SpO2 93% Pulse Ox: SpO2 Av.6 % Min: 92 % Max: 97 % Physical Exam Vitals and nursing note reviewed. Constitutional: General: She is not in acute distress. HENT: Head: Normocephalic. Eyes: Extraocular Movements: Extraocular movements intact. Cardiovascular: Rate and Rhythm: Normal rate and regular rhythm. Pulses: Normal pulses. Pulmonary: Effort: Pulmonary effort is normal. Breath sounds: Normal breath sounds. Abdominal: General: Bowel sounds are normal. Palpations: Abdomen is soft. Musculoskeletal: General: Normal range of motion. Cervical back: Neck supple. Right lower leg: No edema. Left lower leg: No edema. Skin: General: Skin is warm. Neurological: General: No focal deficit present. Mental Status: She is oriented to person, place, and time. Mental status is at baseline. Psychiatric: Mood and Affect: Mood normal. Medications: sodium chloride, 75 mL/hr, Last Rate: 75 mL/hr (02/28/232226) amLODIPine, 10 mg, Oral, Daily amoxicillin-clavulanate, 1 tablet, Oral, BID baclofen, 10 mg, Oral, Daily [START ON 03/02/2023] cholecalciferol, 1,000 Units, Oral, Daily enoxaparin, 40 mg, SubCUTAneous, Daily influenza, 0.5 mL, IntraMUSCular, Prior to discharge insulin lispro, 0-12 Units, SubCUTAneous, TID WC And insulin lispro, 0-12 Units, SubCUTAneous, Nightly insulin lispro, 16 Units, SubCUTAneous, 4x daily AC & HS levothyroxine, 150 mcg, Oral, Daily melatonin, 3 mg, Oral, Nightly [START ON 03/02/2023] PARoxetine, 20 mg, Oral, Nightly pramipexole, 0.25 mg, Oral, Nightly rosuvastatin, 10 mg, Oral, Daily Assessment Functional decline UTI LING/CKD Hyponatremia HTN DM2 with hyperglycemia leukocytosis anemia Hyperlipidemia Hypothyroidism Depression RLS obesity Medical Decision Making Continue antibiotics, HLIV, continue SSI, POCT, insulin, follow up cx's, follow up labs, Geriatrics and Endocrinology are following, PT/OT, discharge planning, see orders. -am labs, replace lytes prn -increase activity -DVT prophylaxis: [x] Lovenox [] Heparin [] SCDs [x] Encourage ambulation [] Already on Anticoagulation Anticipated Discharge - Date - 03/02-03/03 - Location - Home with Home Health Care vs SNF - Pending the following - clinical improvement, disposition finalization and when OK with consultants Total time spent (which include face to face and non face to face encounters) : 48 minutes Toxic drug monitoring/narrow therapeutic index drug monitoring : # Drug name : lovenox and SS insulin # Route administered : subcutaneous and subcutaneous # Method of monitoring : daily CBC and ac and hs glucose Extended Emergency Contact Information Primary Emergency (more content not included)...[facility] 03-01-2023 Hospital Discharge instructions* Discharge Instructions* Adam Holt MD - 03/01/2023 11:44 AM EDT GERIATRICS DISCHARGE INSTRUCTIONS: --we strongly recommend you speak with your PCP (primary care provider) to reduce and discontinue hydroxyzine (aka vistaril) and ambien entirely given falls, weakness, and confusion risk they pose We had you try buspar 5mg by mouth in the hospital as needed for anxiety instead of your hydroxyzine as buspar has been shown to be effective for anxiety and can be taken as needed or on a more regular basis and is safer than hydroxyzine. You can continue this as an outpatient if you talk with yourdoctor about this. You can also try over the counter ([facility] brand like [employer]) melatonin 3mg at night taken 30 minutes before you want to sleep to get you feeling more tired and to improve your sleep-wake cycle. If 3mg doesn't work, can increase to 6mg after about 3 nights. If after 3 nights of taking the 6mg dosedoes not help, just stop the melatonin altogether and let us know if any of the doses work for you. Please discuss with your son that we discussed that you want to be DNR (DO NOT RESUSCITATE) -CCA (comfort care arrest) so DNRCCA. * Discharge Instr - ALEJANDRA* Randi Marquez RN - 03/03/2023 7:29 AM EDT Continuity of Care Form Patient Name: Radha Sandoval : 1945 Admit date: 02/28/2023 Discharge date: 03/03 Code Status Order: DNR-CCA Advance Directives: N Admitting Physician: Gabrielle Finch MD PCP: Shiv Lopez MD Discharging Nurse: Holli Marquez Discharging Hospital Unit/Room#: B1-153/B1-153 A Discharging Unit Emergency Contact: Extended Emergency Contact Information Primary Emergency Contact: Angel Roger Address: [address] [place] Relation: Child Past Surgical History: Past Surgical History: Procedure Laterality Date APPENDECTOMY CHOLECYSTECTOMY 1979 COLONOSCOPY 06/19/2008 COLONOSCOPY W/ BIOPSIES AND POLYPECTOMY N/A 12/07/2022 Performed by Avery Marshall DO at [facility] ENDOSCOPY EYE SURGERY Bilateral early 90's LUNG REMOVAL, PARTIAL Left ROTATOR CUFF REPAIR Left TONSILLECTOMY Immunization History: Immunization History Administered Date(s) Administered Influenza Whole 05/13/2013 Influenza, High Dose Seasonal, Preservative Free 05/25/2018, 06/03/2019, 04/26/2022 Influenza, Seasonal, Quadrivalent, Adjuvanted 03/31/2020, 03/31/2021 Influenza, Unspecified 05/13/2013, 03/31/2020 Brian SARS-CoV-2 Vaccination 08/27/2020 Moderna SARS-CoV-2 Vaccination 04/26/2021 Pneumococcal Conjugate PCV20, Pf (Prevnar 20) 04/26/2022 Pneumococcal Conjugate, Unspecified 03/09/2012 Pneumococcal Polysaccharide PPSV23 03/21/2001, 04/13/2010, 03/09/2012, 03/31/2021 Zoster, Recombinant 03/31/2021 Active Problems: Medical Problems Problem List * (Principal) LING (acute kidney injury) ([facility]/HCC) ([facility]) Diabetes mellitus due to underlying condition with diabetic chronic kidney disease ([facility]) DDD (degenerative disc disease), lumbar Chronic right-sided low back pain with right-sided sciatica Urinary frequency Chronic left shoulder pain Other chronic sinusitis Gastrointestinal bleed Hypokalemia Wound of right buttock Acute cystitis with hematuria Diarrhea Declining functional status Weakness Anxiety (Chronic) Polypharmacy (Chronic) DNR (do not resuscitate) Dependent edema Uncontrolled type 2 diabetes mellitus with hyperglycemia ([facility]) Morbidly obese ([facility]) Vitamin D deficiency Moderate episode of recurrent major depressive disorder ([facility]) OAB (overactive bladder) Localized edema Insomnia Dyspnea on exertion Muscle spasms of both lower extremities Chronic renal insufficiency, stage III (moderate) ([facility]) Restless legs syndrome (RLS) Hyperlipidemia with target LDL less than 70 Lymphedema of both lower extremities Hypertension Hypothyroidism Isolation/Infection: No active isolations No active infections Nurse Assessment: Last Vital Signs: BP (!) 150/64 Pulse 72 Temp 37.1 C (98.8 F) (Temporal) Resp 18 SpO2 95% Last documented pain score (0-10 scale): Last Weight: Wt Readings from Last 1 Encounters: 02/27/23 106 kg (234 lb) Mental Status: ALEJANDRA Patient Mental Status: oriented, alert, and coherent IV Access: ALEJANDRA IV Access: None Nursing Mobility/ADLs: Walking Minimal assistance Transfer Minimal assistance Bathing Minimal assistance Dressing Minimal assistance Toileting Minimal assistance Feeding Minimal assistance 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 Minimal assistance Med Delivery yes Wound Care Documentation and Therapy: Wound/Incision 02/15/23 Pressure Injury Buttock Right;Midline (Active) Site Assessment Blanchable erythema;Clean;Dry;[place];Red 03/02/23 1100 Wound Length (cm) 1 cm 03/02/23 1100 Wound Width (cm) 1 cm 03/02/23 1100 Wound Surface Area (cm^2) 1 cm^2 03/02/23 1100 Odor None 03/02/232050 Drainage Amount Copious 03/02/232050 Treatments Moisture barrier ointment 03/02/232050 Primary Dressing Open to air 03/02/232050 Dressing Status Clean, dry & intact 02/28/232041 Number of days: 15 Elimination: Continence: Bowel: yes Bladder: no Urinary Catheter: None Colostomy/Ileostomy/Ileal Conduit: None Date of Last BM: 03/02 No intake or output data in the 24 hours ending 03/03/23 0729 No intake/output data recorded. Safety Concerns: none Impairments/Disabilities: none Nutrition Therapy: Current Nutrition Therapy: Regular, 4 carb, low sodium Routes of Feeding: oral Liquids: no restrictions Daily Fluid Restriction: no Last Modified Barium Swallow with Video (Video Swallowing Test): not done Treatments at the Time of Hospital Discharge: Respiratory Treatments: Oxygen Therapy: is not on home oxygen therapy. Ventilator: No ventilator support Rehab Therapies: physical therapy and occupational therapy Weight Bearing Status/Restrictions: no restriction Other Medical Equipment (for information only, NOT a DME order): bedside commode, straight cane, and walker Other Treatments: Patient's personal belongings (please select all that are sent with patient): upper dentures, wig, two rings, cane RN SIGNATURE: MANAGEMENT/SOCIAL WORK SECTION Inpatient Status Date: 02/28/2023 Readmission Risk Assessment Score: @[email or web address]@ Discharging to Facility/ Agency Name: [facility] Donn Calderon Open 24 hours Dialysis Facility (if applicable) Name: Address: Dialysis Schedule: Phone: Fax: 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 MBS ac and hs Physician Certification: I certify the above information and transfer of Radha Sandoval is necessary for the continuing treatment of the diagnosis listed and that she requires prison facility for less than 30 days. Update Admission H&P: No change in H&P PHYSICIAN SIGNATURE: documented in this [facility]09-13-2023 Consult note* Adam Holt MD - 03/01/2023 11:26 AM EDTAssociated Order(s): IP CONSULT TO GERIATRICS Images from the original note were not included. [facility] Geriatric Medicine Inpatient Consult Service Admission Date: 02/28/2023 Admission Status: INPATIENT Chief Complaint: I couldn't get around and they directed me to the hospital because I was peeing constantly from that UTI. Reason for Appointment Geriatrics consulted for functional decline Assessment/Plan Principal Problem: LING (acute kidney injury) ([facility]/HCC) ([facility]) Active Problems: Declining functional status Weakness Anxiety Polypharmacy DNR (do not resuscitate) Insomnia Declining Functional Status/Weakness Likely multifactorial given her recent UTI, advancing age, Type 2 Diabetes and other underlying comorbidities Physical therapy/Occupational Therapy ordered; evals pending Antibiotic(s) treatment (oral augmentin) per primary team Insomnia --patient is listed as previously taking ambien 5mg po hs; recommended weaning this as outpatient; put this recommendation in the discharge summary recommendations. Patient only takes this 3-4 nights per week at home; hasn't ever tried melatonin; I encouraged her trial melatonin instead of ambien due to risks discussed --insomnia order set initiated -= Per my d/w pharmacist Ramona - she recommended starting melatonin and changing paroxetine to at bedtime dosing due to sedating effects of medication. Anxiety Knows she takes hydroxyzine at home about once a day on average. Never tried buspar. Is open to it. --begin buspar 5mg po bid prn --discontinue hydroxyzine Polypharmacy Recommend f/u with geriatrics as outpatient Recommend patient speak with her PCP (primary care provider) to reduce and discontinue hydroxyzine and ambien entirely given falls, weakness, and confusion risk they pose; patient states she understands and will discuss with PCP (primary care provider) Denies recent falls at home Vit D Deficiency/weakness Last vit D was 28 in Jun 2022; rechecking Vit D Goal vit D level 30-60 Begin vit D 1000 IUs daily Low TSH (thyroid function test) Defer to primary care treatment/management Code Status Discussion DNRCCA - patient wishes to be DNRCCA per our discussion at bedside today; I encouraged her to relaythis to her son; I completed paperwork order and gave her a copy and made sure a copy was on her chart. I verbally told nurse Alma at hospital. Dispo Anticipated discharge; patient would be amenable to home with home health if necessary I [facility] [phone]. Call in 2 weeks for memory (re)testing once acute issue(s) resolve - order placed in [facility] for follow-up Other I deferred full MMSE today due to somnolence and acute infection (UTI, hyperglycemia) but patient was A&OX3 and had 3/3 recall, knew 911 and President of [place] is Marya. Low concern for underlying memory loss/dementia process as she's independent in ADLs and IADLs and a good historian. Asked for insulin when they served her breakfast this AM at hospital and she knew she hadn't received AM insulin yet. I spent total encounter time: 75 minutes face to face with the patient and/or family discussing thediagnosis and importance of compliance with the treatment plan as well as documenting on the day ofthe visit. In addition, that total time includes the following: -Reviewing previous notes, -Reviewing labs, -Obtaining and/or reviewing separately obtained history, -Ordering prescription medications, tests and procedures, -Communicating results to the patient/family/caregiver, - Counseling/educating the patient/family/caregiver, -Documenting clinical information in the patients electronic record, -Coordination of care for the patient, and -Performing a medically appropriate exam and/or evaluation Subjective: HPI 77 y.o. year-old female presented from home for dysuria, polyuria, back pain, weakness. Per H&P from 02/28/23, Reason for Admission: DM2 with hyperglycemia/weakness/UTI History Obtained From: patient/chart HISTORY OF PRESENT ILLNESS: Radha is a 77 y.o. female with past medical history below who presents with chief complaint listed above. She saw her PCP yesterday for dysuria, polyuria and back pain and was put on augmentin. She hadnot yet started it, symptoms worsened and she presented to the ED. She is very weak. No radiation of the back pain. She denies chest pain, sob, cough, abdominal pain, nausea, vomiting, diarrhea, const ipation, fevers, or chills. Will admit for further evaluation and management. Geriatrics ED screen positive for: lives alone/needs help at home, hospitalized in the last 3 months, falls or trouble walking, takes 5 or more medicines daily, and in worse health than others your age Conversation with caregiver: Per my d/w patient's bedside nurse Alma on 03/01/23 early afternoon: Alma states that patient has been A&OX3 and appropriate and cooperative for her. She had no concerns. Patient slept well overnight. Awoke and ate 75-99% of her breakfast. Had no hallucinations. Knew to call for insulin administration before breakfast. Urinating well. Had slight suprapubic right sided TTP on exam this m orning but only when moderate palpation pressure applied by nursing. No confusion noted. No other concerns. Per my d/w patient at bedside on early afternoon on 03/01/23: she is . Lives alone. Has one son. Has a neighbor who is involved. Is independent in ADLs and IADLs. Still drives without any recent tickets, accidents, getting lost. Knows she's here at [facility] due to UTI. States she was feeling more weak and peeing a lot at home so she came here. States she wants to be DNRCCA but doesn't think her son knows that. Does not have a POA. Tells me she has insomnia for which she takes ambien 5mg nightly about 3-4 nights per week at home. Never tried melatonin. Is open to it. Knows she takes hydroxyzine at home about once a day on average. Never tried buspar. Is open to it. Denies recent falls at home. Tells me I haven't slept much lately. But I slept well overnight. Per my d/w pharmacist Ramona - she recommended starting melatonin and changing paroxetine to at bedtime dosing due to sedating effects of medication. Advance Care Planning Healthcare Power ofAttorney: No Financial Power of Director Compensation: No Living Will:No Code Status: DNRCCA - patient wishes to be DNRCCA per our discussion at bedside today; I encouragedher to relay this to her son; I completed paperwork order and gave her a copy and made sure a copy was on her chart. I verbally told nurse Alma at hospital. Allergies Allergen Reactions Codeine Itching Other Percodan Oxycodone Hives Oxycodone-Aspirin Vancomycin Other reaction(s): U Current Facility-Administered Medications: acetaminophen (Tylenol) tablet 650 mg, 650 mg, Oral, q6h PRN, 650 mg at 03/01/23 0635 OR acetaminophen (Tylenol) suppository 650 mg, 650 mg, Rectal, q6h PRN, Gabrielle Finch MD albuterol 108 (90 Base) MCG/ACT inhaler 2 puff, 2 puff, Inhalation, q6h PRN, Gabrielle Finch MD amLODIPine (Norvasc) tablet 10 mg, 10 mg, Oral, Daily, Gabrielle Finch MD, 10 mg at 02/28/232054 amoxicillin-clavulanate (Augmentin) 875-125 MG per tablet 1 tablet, 1 tablet, Oral, BID, Gabrielle Finch MD, 1 tablet at 03/01/23937 baclofen (Lioresal) tablet 10 mg, 10 mg, Oral, Daily, Gabrielle Finch MD, 10 mg at 02/28/232054 busPIRone (Buspar) tablet 5 mg, 5 mg, Oral, BID PRN, Adam Holt MD dextrose 5 % infusion, 100 mL/hr, IntraVENous, PRN, Gabrielle Finch MD dextrose 50 % solution 12.5 g, 12.5 g, IntraVENous, PRN, Tasneem Whaley MD enoxaparin (Lovenox) syringe 40 mg, 40 mg, SubCUTAneous, Daily, Gabrielle Finch MD, 40 mg at 03/01/23937 glucagon (human recombinant) injection 1 mg, 1 mg, IntraMUSCular, PRN, Gabrielle Ficnh MD glucose oral gel 15 g, 15 g, Oral, PRN, Tasneem Whaley MD Influenza Vac A&B SA Adj quadrivalent (Fluad) vaccine 0.5 mL, 0.5 mL, IntraMUSCular, Prior to discharge, Gabrielle Finch MD Insulin Lispro (Humalog) injection 0-12 Units, 0-12 Units, SubCUTAneous, TID WC, 2 Units at 03/01/23937 AND Insulin Lispro (Humalog) injection 0-12 Units, 0-12 Units, SubCUTAneous, Nightly, Gabrielle Finch MD, 4 Units at 02/28/232053 Insulin Lispro (Humalog) injection 16 Units, 16 Units, SubCUTAneous, 4x daily AC & HS, Gabrielle Finch MD, 16 Units at 03/01/23 0757 levothyroxine (Synthroid, Levoxyl) tablet 150 mcg, 150 mcg, Oral, Daily, Gabrielle Finch MD, 150 mcg at 03/01/23 0634 melatonin tablet 6 mg, 6 mg, Oral, Nightly, Adam Holt MD ondansetron ODT (Zofran-ODT) disintegrating tablet 4 mg, 4 mg, Oral, q8h PRN OR ondansetron (Zofran) injection 4 mg, 4 mg, IntraVENous, q6h PRN, Gabrielle Finch MD [START ON 03/02/2023] PARoxetine (Paxil) tablet 20 mg, 20 mg, Oral, Nightly, Adam Holt MD polyethylene glycol (PEG) 3350 (Miralax) packet 17 g, 17 g, Oral, Daily PRN, Gabrielle Finch MD pramipexole (Mirapex) tablet 0.25 mg, 0.25 mg, Oral, Nightly, Gabrielle Finch MD, 0.25 mg at 02/28/232225 rosuvastatin (Crestor) tablet 10 mg, 10 mg, Oral, Daily, Gabrielle Finch MD, 10 mg at 02/28/232054 sodium chloride 0.9 % infusion, 75 mL/hr, IntraVENous, Continuous, Gabrielle Finch MD, Last Rate: 75 mL/hr at 02/28/232226, 75 mL/hr at 02/28/232226 Past Medical History: Diagnosis Date Acquired lymphedema Allergic Anxiety Arthritis Asthma Candidiasis of vulva and vagina CKD (chronic kidney disease) Depression Dietary counseling and surveillance Hyperlipidemia Hyperparathyroidism (HCC) Hypertension Hypothyroidism Malaise and fatigue Morbid obesity (HCC) Muscle weakness Nevus, non-neoplastic Pain in limb Pure hypercholesterolemia RLS (restless legs syndrome) Type 2 diabetes mellitus (HCC) Varicella Past Surgical History: Procedure Laterality Date APPENDECTOMY CHOLECYSTECTOMY 1979 COLONOSCOPY 06/19/2008 COLONOSCOPY W/ BIOPSIES AND POLYPECTOMY N/A 12/07/2022 Performed by Avery Marshall DO at [facility] ENDOSCOPY EYE SURGERY Bilateral early ' LUNG REMOVAL, PARTIAL Left ROTATOR CUFF REPAIR Left TONSILLECTOMY Social History Social History Tobacco Use Smoking status: Never Smokeless tobacco: Never Substance Use Topics Alcohol use: Yes Alcohol/week: 1.0 - 2.0 standard drink of alcohol Types: 1 - 2 Standard drinks or equivalent per week Comment: social; 1 mixed drink every 2 weeks Social History Social History Narrative Not on file Patient Currently Lives: home alone Level of FamilySupport: son local; neighbor involved Community Resources: no Elder Abuse: no Education Level: High School graduate Family History Family History Problem Relation Name Age of Onset Mental illness Mother GHANSHYAM COLEY Depression Mother GHANSHYAM COLEY Heart disease Father LATHA COLEY High Blood Pressure Father LATHA COLEY Asthma Father LATHA COLEY Hypertension Father LATHA COLEY Diabetes Brother CATRACHO COLEY Family Status Relation Name Status Mother GHANSHYAM COLEY Father LATHA COLEY Brother CATRACHO COLEY (Not Specified) Parents are as above Review of Systems Constitutional: Negative for chills and fever. Eyes: Negative for pain and visual disturbance. Respiratory: Negative for cough and shortness of breath. Cardiovascular: Negative for chest pain and leg swelling. Gastrointestinal: Negative for abdominal pain, constipation, diarrhea, nausea and vomiting. Genitourinary: Positive for frequency and urgency. Negative for flank pain and hematuria. Musculoskeletal: Negative for arthralgias and gait problem. Skin: Negative for rash and wound. Neurological: Positive for weakness. Negative for headaches. Psychiatric/Behavioral: Positive for sleep disturbance (but slept better last night after several nights of not sleeping well). Negative for dysphoric mood and suicidal ideas. The patient is not nervous/anxious. Depression Screening: PHQ-2 Over the past 2 weeks, how often have you been botheredby any of the following problems? 1) Little interest or pleasure in doing things: No 2)Felling down, depressed, or hopeless: No Functional Status (I: Independent, A: Assisted, D: Dependent) Patient reports to Social Work(er) being largely indpendent in ADLs and IADLs living at home alone with local son and neighbor involved and willing to help if/when she needs the help. Per CM note from TONI Jackson on 03/01/23, Care Managment Initial Assessment Date: 03/01/2023 Patient Name: Radha Sandoval : 1945 Patient Information Source of Information: Patient Cognition/Language: WFL - Within Functional Limits Permission given to speak with patient ambulatory service representative/caregiver as indicated: Yes Confirmation of Payer with patient/family: Yes Payer Name: [employer] [place]: No Confirmation of Primary Care Physician: Confirmed PCP Name: John Seen in last 2 years?: Yes Primary Caregiver: Self If assistance needed, confirmed caregiver ready, willing and able to care for patient at discharge:Yes Confirmed with: per pt, son or neighbor Living Arrangements Current Residence: House Number of Floors 1 (laundry in basement) Number of Entry Steps: 2 Bed/Bath Levels: Facility: Facility Name: Plan to Return: Yes Lives with: Alone Support Systems: Children, Family members, Friends/neighbors Activities of Daily Living Ambulation: Assistance (cane) Bathing/Dressing: Independent Elimination/Continence/Toileting: Independent Feeding: Independent Who Assists with Activities of Daily Living: Instrumental Activities of Daily Living Prescription Coverage: Yes Pharmacy Used: [facility] [place] Medication Management: Independent Transportation/Shopping: Independent Transportation Mode: Car Needs Assistance with Transportation at Discharge: No (son or neighbor) Meal Preparation: Independent Laundry/Cleaning: Independent Finances/Bill Paying: Independent Communication: Independent Types of Care Services/Equipment Utilized Care Services: Dialysis Type: NA Durable Medical Equipment: Cane, Walker, Shower Seat, Glucometer Patient's Goal/Discharge Plan Patient expects to be discharged to: Home Discharge Planning Actions: Continue to follow Patient's Choice Rights and [employer] and Collaborative Relationships Disclosed as Indicated for Post-Acute Care: NA Interdisciplinary Team Engagement: PT/OT, Home Health Care Objective: BP 138/57 (BP Location: Right arm) Pulse 80 Temp 36.6 C (97.8 F) (Temporal) Resp 16 SpO2 93% No intake or output data in the 24 hours ending 03/01/23 1231 Wt Readings from Last 3 Encounters: 02/27/23 234 lb (106 kg) 02/15/23 228 lb (103 kg) 02/07/23 242 lb 6.4 oz (110 kg) Physical Exam Vitals reviewed. Constitutional: Appearance: Normal appearance. She is obese. Comments: 77 yo woman lying supine sleeping in hospital bed; easily aroused by low-volume voice; pleasant; follows all commands; moves all extremities independently; sleepy and at first nodding off during questioning but later becomes a little more alert; good historian; requires me to wake her back up a few times during interview and physical exam but is A&OX3 and gets all questions right regarding 911, current [place] President, 3/3 delayed recall, reason for admission. She's A&OX3. Conversant. Able to voice her stance on being DNRCCA and why. HENT: Head: Normocephalic and atraumatic. Right Ear: No decreased hearing (no hearing aids in place) noted. Left Ear: No decreased hearing noted. Mouth/Throat: Mouth: Mucous membranes are moist. Dentition: Abnormal dentition. Has dentures (upper full dentures in place). Eyes: Extraocular Movements: Extraocular movements intact. Conjunctiva/sclera: Conjunctivae normal. Neck: Thyroid: No thyromegaly. Cardiovascular: Rate and Rhythm: Normal rate and regular rhythm. Pulmonary: Effort: Pulmonary effort is normal. Breath sounds: Normal breath sounds. Abdominal: General: Bowel sounds are normal. Palpations: Abdomen is soft. Hernia: No hernia is present. Genitourinary: Comments: External cath draining blaine colored slightly cloudy ample urine Musculoskeletal: Cervical back: Neck supple. Right lower leg: No edema. Left lower leg: No edema. Skin: General: Skin is warm and dry. Neurological: General: No focal deficit present. Mental Status: She is alert and oriented to person, place, and time. Mental status is at baseline. Gait: Gait abnormal (I did not personally assess but OT evaluated and confirmed abnormal gait/weakness). Psychiatric: Mood and Affect: Mood normal. Behavior: Behavior normal. Mini-Mental Status Exam: Deferred due to somnolence but patient was A&OX3 and had 3/3 recall, knew 911 and President of [place] is Marya. Low concern for underlying memory loss. Clock Drawing Test: deferred; patient still drives; no recent accidents, tickets, getting lost Labs and Imaging: Recent Results (from the past 24 hour(s)) CBC auto differential Collection Time: 02/28/23 12:32 PM Result Value Ref Range Auto WBC 12.3 (H) 3.6 - 10.7 10*3/uL RBC 4.11 3.8 - 5.20 10*6/uL Hemoglobin 11.5 (L) 11.7 - 16.0 g/dL Hematocrit 36.0 35.0 - 47.0 % MCV 87.5 80.0 - 98.0 fL MCH 28.0 26.0 - 34.0 pg MCHC 32.0 32.0 - 36.0 % RDW 13.8 11.5 - 14.5 % Platelets 278 140 - 440 10*3/uL MPV 8.6 7.4 - 12.4 fL nRBC 0.0 0.0 - 2.0 /100 WBCs Neutrophils Relative 83.2 (H) 40.0 - 80.0 % Lymphocytes Relative 6.4 (L) 20.0 - 40.0 % Monocytes Relative 9.0 2.0 - 10.0 % Eosinophils Relative 0.9 (L) 1.0 - 6.0 % Basophils Relative 0.5 0.0 - 2.0 % Neutrophils Absolute 10.2 (H) 1.8 - 7.0 10*3/uL Lymphocytes Absolute 0.8 (L) 1.0 - 4.3 10*3/uL Monocytes Absolute 1.1 (H) 0.0 - 0.8 10*3/uL Eosinophils Absolute 0.1 0.0 - 0.5 10*3/uL Basophils Absolute 0.1 0.0 - 0.2 10*3/uL Comprehensive metabolic panel Collection Time: 02/28/23 12:32 PM Result Value Ref Range SODIUM 130 (L) 135 - 145 mmol/L POTASSIUM 4.0 3.5 - 5.1 mmol/L CHLORIDE 96 (L) 98 - 107 mmol/L CARBON DIOXIDE 26 22 - 30 mmol/L ANION GAP 8 3 - 13 mmol/L UREA NITROGEN 20 (H) 7 - 17 mg/dL CREATININE 1.22 (H) 0.52 - 1.04 mg/dL GLUCOSE 483 (HH) 70 - 100 mg/dL CALCIUM 8.4 8.4 - 10.4 mg/dL AST (SGOT) 24 15 - 46 U/L ALT 18 0 - 34 U/L ALKALINE PHOSPHATASE 119 38 - 126 U/L ALBUMIN 3.7 3.5 - 5.0 g/dL BILIRUBIN, TOTAL 0.5 0.2 - 1.3 mg/dL TOTAL PROTEIN 6.6 6.3 - 8.2 g/dL eGFR 45.2 (L) >60.0 mL/min/1.73m*2 Complete Urinalysis Collection Time: 02/28/23 2:12 PM Result Value Ref Range Color, Urine Light Yellow Lt. Yellow Clarity, Urine Turbid (A) Clear pH, Urine 5.0 5.0 - 8.0 pH Leukocytes, Urine 250 (A) Negative Sandeep/uL Nitrite, Urine Positive (A) Negative Protein, Urine 20 (A) Negative mg/dL Glucose, Urine >1,000 (A) Normal (<70) mg/dL Bilirubin, Urine Negative Negative mg/dL Ketones, Urine Negative Negative mg/dL Urobilinogen, Urine Normal Normal (0-1) mg/dL Blood, Urine Negative Negative mg/dL RBC, Urine 0-2 0 - 2 /HPF WBC, Urine 11-25 (A) 0 - 5 /HPF Squamous Epithelial, Urine 3-5 3 - 5 /HPF Bacteria, Urine Moderate (A) Negative /HPF Mucus, Urine Few Negative /LPF Yeast, Urine Few (A) Negative /HPF Hyaline Casts, Urine 3-5 (A) Negative /LPF Granular Casts, Urine 0-2 (A) Negative /LPF WBC Clumps, Urine Occasional (A) Negative /HPF SPECIFIC GRAVITY OF URINE (NUMERIC) 1.020 1.005 - 1.030 POCT glucose meter Collection Time: 02/28/23 6:08 PM Result Value Ref Range Glucose 197 (H) 70 - 100 mg/dL POCT glucose meter Collection Time: 02/28/23 8:24 PM Result Value Ref Range Glucose 245 (H) 70 - 100 mg/dL Procalcitonin Test Collection Time: 03/01/23 3:44 AM Result Value Ref Range PROCALCITONIN 0.05 0.00 - 0.09 ng/mL CBC auto differential Collection Time: 03/01/23 3:44 AM Result Value Ref Range Auto WBC 13.8 (H) 3.6 - 10.7 10*3/uL RBC 4.00 3.8 - 5.20 10*6/uL Hemoglobin 11.5 (L) 11.7 - 16.0 g/dL Hematocrit 34.9 (L) 35.0 - 47.0 % MCV 87.1 80.0 - 98.0 fL MCH 28.7 26.0 - 34.0 pg MCHC 33.0 32.0 - 36.0 % RDW 13.6 11.5 - 14.5 % Platelets 271 140 - 440 10*3/uL MPV 8.5 7.4 - 12.4 fL nRBC 0.0 0.0 - 2.0 /100 WBCs Neutrophils Relative 74.6 40.0 - 80.0 % Lymphocytes Relative 12.6 (L) 20.0 - 40.0 % Monocytes Relative 10.8 (H) 2.0 - 10.0 % Eosinophils Relative 1.4 1.0 - 6.0 % Basophils Relative 0.6 0.0 - 2.0 % Neutrophils Absolute 10.3 (H) 1.8 - 7.0 10*3/uL Lymphocytes Absolute 1.7 1.0 - 4.3 10*3/uL Monocytes Absolute 1.5 (H) 0.0 - 0.8 10*3/uL Eosinophils Absolute 0.2 0.0 - 0.5 10*3/uL Basophils Absolute 0.1 0.0 - 0.2 10*3/uL Comprehensive metabolic panel Collection Time: 03/01/23 3:44 AM Result Value Ref Range SODIUM 137 135 - 145 mmol/L POTASSIUM 4.3 3.5 - 5.1 mmol/L CHLORIDE 102 98 - 107 mmol/L CARBON DIOXIDE 26 22 - 30 mmol/L ANION GAP 9 3 - 13 mmol/L UREA NITROGEN 17 7 - 17 mg/dL CREATININE 0.96 0.52 - 1.04 mg/dL GLUCOSE 123 (H) 70 - 100 mg/dL CALCIUM 8.3 (L) 8.4 - 10.4 mg/dL AST (SGOT) 24 15 - 46 U/L ALT 16 0 - 34 U/L ALKALINE PHOSPHATASE 102 38 - 126 U/L ALBUMIN 3.1 (L) 3.5 - 5.0 g/dL BILIRUBIN, TOTAL 0.4 0.2 - 1.3 mg/dL TOTAL PROTEIN 6.0 (L) 6.3 - 8.2 g/dL eGFR 60.3 >60.0 mL/min/1.73m*2 Hemoglobin A1c Collection Time: 03/01/23 3:44 AM Result Value Ref Range HEMOGLOBIN A1C 12.6 (H) <5.7 % ESTIMATED AVERAGE GLUCOSE 315 mg/dL POCT glucose meter Collection Time: 03/01/23 7:35 AM Result Value Ref Range Glucose 172 (H) 70 - 100 mg/dL POCT glucose meter Collection Time: 03/01/23 11:22 AM Result Value Ref Range Glucose 153 (H) 70 - 100 mg/dL Lab Results Component Value Date TSH 0.03 (L) 02/27/2023 No components found for: B12 Lab Results Component Value Date VITD25 28 (L) 06/30/2022 Reviewed: active problem list, medication list, allergies, family history, notes from last encounter, lab results Follow-up: 1-2 days Communication of Consult Recommendations: Assessment and recommendations communicated to primary service I used [employer] secure messaging to message Dr. Finch on 03/01/23 at 12:35 to notify that geriatrics consult note has been completed and to page or call my personal cell with any questions. [facility] [id number] Note* Care Coordination - Laura Jackson RN - 03/01/2023 10:14 AM EDT Care Managment Initial Assessment Date: 03/01/2023 Patient Name: Radha Sandoval : 1945 Patient Information Source of Information: Patient Cognition/Language: WFL - Within Functional Limits Permission given to speak with patient ambulatory service representative/caregiver as indicated: Yes Confirmation of Payer with patient/family: Yes Payer Name: [employer] [place]: No Confirmation of Primary Care Physician: Confirmed PCP Name: John Seen in last 2 years?: Yes Primary Caregiver: Self If assistance needed, confirmed caregiver ready, willing and able to care for patient at discharge:Yes Confirmed with: per pt, son or neighbor Living Arrangements Current Residence: House Number of Floors 1 (laundry in basement) Number of Entry Steps: 2 Bed/Bath Levels: Facility: Facility Name: Plan to Return: Yes Lives with: Alone Support Systems: Children, Family members, Friends/neighbors Activities of Daily Living Ambulation: Assistance (cane) Bathing/Dressing: Independent Elimination/Continence/Toileting: Independent Feeding: Independent Who Assists with Activities of Daily Living: Instrumental Activities of Daily Living Prescription Coverage: Yes Pharmacy Used: [facility] [place] Medication Management: Independent Transportation/Shopping: Independent Transportation Mode: Car Needs Assistance with Transportation at Discharge: No (son or neighbor) Meal Preparation: Independent Laundry/Cleaning: Independent Finances/Bill Paying: Independent Communication: Independent Types of Care Services/Equipment Utilized Care Services: Dialysis Type: NA Durable Medical Equipment: Cane, Walker, Shower Seat, Glucometer Patient's Goal/Discharge Plan Patient expects to be discharged to: Home Discharge Planning Actions: Continue to follow Patient's Choice Rights and [employer] and Collaborative Relationships Disclosed as Indicated for Post-Acute Care: NA Interdisciplinary Team Engagement: PT/OT, Home Health Care Social Work Referral for: Additional Information: 77 yo female admitted to for LING. On PO augmentin for UTI, low Na diet, Ucx pending. CT noted diverticulitis and di renal stones. PT OT ordered, geriatrics and endocrine consulted. Met with pt atbedside, introduced self and explained role of tcc. Pt has insurance with RX coverage, active with PCP. Pt lives at home alone, uses a cane at baseline, has a son and neighbor able to assist, not interested in SNF but would be able to [facility] liaison following, TCC to assist and follow as needed. Laura Jackson RN [facility] [id number] Consult note* Michelle Valle RN - 03/01/2023 9:33 AM EDT Associated Order(s): IP CONSULT TO MOLDER APPRENTICE This patient is not a new diabetic or new to insulin therapy and therefore does not meet our current criteria for the inpatient diabetes education service. The clinical bedside RN should provide any necessary diabetes education using the Diabetes SurvivalSkills Booklet available on the unit. Please consider a dietary consult if appropriate and if not already ordered. Contact [facility] pharmacist for assistance if a new glucometer or any associated supplies are needed. Thank you. Elder MUÑOZ,BSN,[facility] [id number] Consult note* Jelly Paz APRN - P[employer] I ENGRAVER - 03/01/2023 8:03 AM EDTAssociated Order(s): IP CONSULT TO ENDOCRINOLOGY Department of Internal Medicine Division of Endocrinology, Diabetes, & Metabolism Endocrinology Note Patient Name: Radha Sandoval : 1945 AGE: 77 y.o. Room[facility]Bed: [facility] A Admission Date: 02/28/2023 Visit Date: 03/01/2023 Reason for Endocrine Consult: DM-Uncontrolled Provider/Team Requesting Consult: Dr. Finch PCP: Shiv Lopez MD Outpt Grease Machine Worker: No ASSESSMENT: Type II diabetes with hyperglycemia, with mcfp insulin use Postoperative hypothyroidism PLAN: Humalog 6 units TID with meals Humalog Medium dose sliding scale TID with meals Lantus 19 units daily Check T4 Levothyroxine 150 mcg daily Patient received 48 units in past 24 hours ICU goal <180 GMF goal <150 POCT BG ACHS Hypoglycemia per protocol Carb controlled diet ANTICIPATED ENDOCRINE HOME GOING RECOMMENDATIONS: Optimized for Discharge from Endocrine standpoint: No Home Going Endocrine Rx Recommendations-- Humalog Dose to be determined Lantus Dose to be determined. Levothyroxine Outpt Follow Up-- PCP SUBJECTIVE/HPI: CHIEF COMPLAINT: Chief Complaint Patient presents with Back Pain Patient presents for lower back pain and burning and pain with urination. WBC: 13.8 Patient alert and oriented sitting up in bed. Patient reports she lives alone and manages insulin independently. Keeps insulin in fridge. Does not miss doses of insulin Checks blood sugars regularly and recently blood sugars have been in 400s. Eats three meals daily: Breakfast 10 am, Lunch 2 pm, Dinner: 8 pm Latest Reference Range & Units 02/28/23 14:12 pH, Urine 5.0 - 8.0 pH 5.0 Clarity, Urine Clear Turbid ! Color, Urine Lt. Yellow Light Yellow WBC Clumps, Urine Negative /HPF Occasional ! Squamous Epithelial, Urine 3 - 5 /HPF 3-5 Bacteria, Urine Negative /HPF Moderate ! RBC, Urine 0 - 2 /HPF 0-2 WBC, Urine 0 - 5 /HPF 11-25 ! Urobilinogen, Urine Normal (0-1) mg/dL Normal Ketones, Urine Negative mg/dL Negative Blood, Urine Negative mg/dL Negative Glucose, Urine Normal (<70) mg/dL >1,000 ! Bilirubin, Urine Negative mg/dL Negative Protein, Urine Negative mg/dL 20 ! Nitrite, Urine Negative Positive ! LEUKOCYTE ESTERASE Negative Sandeep/uL 250 ! !: Data is abnormal Acquired lymphedema Allergic Anxiety Arthritis Asthma Candidiasis of vulva and vagina CKD (chronic kidney disease) Depression Dietary counseling and surveillance Hyperlipidemia Hyperparathyroidism (HCC) Hypertension Hypothyroidism Malaise and fatigue Morbid obesity (HCC) Muscle weakness Nevus, non-neoplastic Pain in limb Pure hypercholesterolemia RLS (restless legs syndrome) Type 2 diabetes mellitus (HCC) Varicella Glucose Date/Time Value Ref Range Status 03/01/2023 07:35 AM 172 (H) 70 - 100 mg/dL Final 02/28/2023 08:24 PM 245 (H) 70 - 100 mg/dL Final 02/28/2023 06:08 PM 197 (H) 70 - 100 mg/dL Final 12/07/2022 11:25 AM 179 (H) 70 - 100 mg/dL Final 12/07/2022 06:29 AM 158 (H) 70 - 100 mg/dL Final 12/07/2022 04:51 AM 160 (H) 70 - 100 mg/dL Final Glucose Blood, POC Date/Time Value Ref Range Status 02/27/2023 03:25 PM 494 mg/dL Final Type of DM: 2 Onset of DM: 1st diagnosed in her late 40's Home DM Medication Regimen: Humalog 16 units ACHS DM control (last A1c/glucose data): Lab Results Component Value Date HGBA1C 9.0 (H) 10/04/2022 Diabetes Medications patient has been on overtime: Metformin- since diagnosis. She has been having diarrhea in [id number], smt severe Glimepiride- started in 2015 Trulicity started in November 2017 lantus Humalog Thyroid disorder: Postoperative Hypothyroidism Onset of thyroid disorder: Unknown Home regimen: LT4 150 mcg daily Biotin use: No Patient reports thyroid surgery in her distant past but can not recall why or if they performed total thyroidectomy. Patient has been on LT4 since surgery. She reports taking Levothyroxine nightly with other medications. Patient has been taking LT4 in this way for a number of years Review of Systems Constitutional: Negative for fatigue. Respiratory: Negative for shortness of breath. Cardiovascular: Negative for chest pain. Endocrine: Negative for polydipsia, polyphagia and polyuria. Skin: Positive for wound. All other systems reviewed and are negative. ROS negative except for those mentioned in HPI. OBJECTIVE: Vitals: 02/28/23 1744 02/28/23 1810 02/28/23202403/01/23 0004 BP: 139/89 (!) 144/65 104/64 (!) 136/48 BP Location: Left arm Patient Position: Sitting Pulse: 73 73 78 72 Resp: 16 18 16 Temp: 36.8 C (98.3 F) 36.4 C (97.6 F) TempSrc: Temporal Temporal SpO2: 97% 97% 95% 96% Physical Exam Vitals and nursing note reviewed. Constitutional: Appearance: She is ill-appearing. HENT: Head: Normocephalic. Eyes: Conjunctiva/sclera: Conjunctivae normal. Cardiovascular: Rate and Rhythm: Normal rate and regular rhythm. Pulses: Normal pulses. Heart sounds: Normal heart sounds. Pulmonary: Effort: Pulmonary effort is normal. No respiratory distress. Skin: General: Skin is warm. Neurological: General: No focal deficit present. Mental Status: She is alert and oriented to person, place, and time. Psychiatric: Mood and Affect: Mood normal. Behavior: Behavior normal. 24 hour intake/output:No intake or output data in the 24 hours ending 03/01/23 0804 Diet: Adult diet Regular; Low Sodium (2 gm); 4 carb choices (60 gm/meal) Medications (as per EMR): HomeMeds: Current Outpatient Medications Medication Instructions albuterol 108 (90 Base) MCG/ACT inhaler 2 puffs, Inhalation, Every 6 hours PRN amLODIPine (NORVASC) 10 mg, Oral, Daily amoxicillin-clavulanate (Augmentin) 875-125 MG tablet 1 tablet, Oral, 2 times daily baclofen (LIORESAL) 10 mg, Oral, Daily ergocalciferol (VITAMIN D-2) 1.25 mg, Oral, Weekly Glucose Blood (Blood Glucose Test) strip 4 times daily hydrOXYzine HCl (ATARAX) 25 mg, Oral, Every 8 hours PRN levothyroxine (SYNTHROID, LEVOXYL) 150 mcg, Oral, Daily lisinopril 40 mg, Oral, Daily meloxicam (MOBIC) 7.5 mg, Oral, Daily NovoLOG FLEXPEN 16 Units, SubCUTAneous, 4 times daily, Before meals. PARoxetine (PAXIL) 20 mg, Oral, Every morning potassium chloride CR (K-Tab) 20 MEQ ER tablet 20 mEq, Oral, Daily, Do not crush, chew, or split. pramipexole (MIRAPEX) 0.25 mg, Oral, Nightly rosuvastatin (CRESTOR) 10 mg, Oral, Daily zolpidem (AMBIEN) 10 mg, Oral, Nightly PRN Scheduled Meds:amLODIPine, 10 mg, Oral, Daily amoxicillin-clavulanate, 1 tablet, Oral, BID baclofen, 10 mg, Oral, Daily enoxaparin, 40 mg, SubCUTAneous, Daily influenza, 0.5 mL, IntraMUSCular, Prior to discharge insulin lispro, 0-12 Units, SubCUTAneous, TID WC And insulin lispro, 0-12 Units, SubCUTAneous, Nightly insulin lispro, 16 Units, SubCUTAneous, 4x daily AC & HS levothyroxine, 150 mcg, Oral, Daily PARoxetine, 20 mg, Oral, q AM pramipexole, 0.25 mg, Oral, Nightly rosuvastatin, 10 mg, Oral, Daily Continuous Infusions:sodium chloride, 75 mL/hr, Last Rate: 75 mL/hr (02/28/23 0725) PRN Meds:PRN medications: acetaminophen OR acetaminophen, albuterol, dextrose, dextrose, dextrose, dextrose, glucagon (rDNA), glucagon (rDNA), glucose, glucose, hydrOXYzine pamoate, ondansetron ODT OR ondansetron, polyethylene glycol (PEG) 3350, zolpidem Diagnostic Workup: I reviewed pertinent Laboratory results, Radiographic results, and Other Clinical Notes at the timeof today's encounter. Labs: No components found for: LABA1C No components found for: EAG Lab Results Component Value Date NA 137 03/01/2023 K 4.3 03/01/2023 CL 102 03/01/2023 CO2 26 03/01/2023 BUN 17 03/01/2023 CREATININE 0.96 03/01/2023 GLUCOSE 123 (H) 03/01/2023 CALCIUM 8.3 (L) 03/01/2023 Lab Results Component Value Date CHOL 160 06/22/2021 CHOL 222 (A) 05/20/2021 CHOL 208 (A) 02/16/2021 Lab Results Component Value Date TRIG 114 06/22/2021 TRIG 124 05/20/2021 TRIG 93 02/16/2021 Lab Results Component Value Date HDL 70 (H) 06/22/2021 HDL 71 (H) 05/20/2021 HDL 53 02/16/2021 No results found for: LDLCALC No results found for: VLDL Lab Results Component Value Date CHOLHDLRATIO 2 06/22/2021 CHOLHDLRATIO 3 05/20/2021 CHOLHDLRATIO 4 02/16/2021 No results found for: [id number] Lab Results Component Value Date TSH 0.03 (L) 02/27/2023 Radiology reportsas per the Radiologist Radiology: CT abdomen pelvis wo IV contrast Result Date: 02/28/2023 Patient Name: RADHA SANDOVAL : 1945 [facility] [id number] ExamDate/Time: 02/28/2023 13:07 Procedure: CT ABDOMEN PELVIS WO IV CONTRAST Ordering Provider: WHALEY BETHANY Reason For Exam: FLANK PAIN CT SCAN OF THE ABDOMEN AND PELVIS WITHOUT CONTRAST: INDICATION: Flank pain and dysuria COMPARISON: None. CT scans of the abdomen and pelvis were performed without oral and intravenous contrast administration, with images from the lung bases through the pubic symphysis. The images are reviewed in the axial, sagittal and coronal planes. Dose reduction was employed with automated exposure control. The lung bases are clear. The cardiac silhouette is satisfactory. The liver is normal in size, shape and attenuation. There are no focal liver masses. The gallbladder is surgically absent. No intra or extrahepatic biliary ductal dilatation is appreciated. The pancreas is unremarkable. The spleen is unremarkable. Evaluation of the upper GI tract demonstrates the stomach to be unremarkable. The duodenum is satisfactory in appearance. The small bowel is unremarkable. There is no mucosal thickening. No zone of transition is appreciated. There is no free fluid nor free air. There is a small fat-containing umbilical hernia. Evaluation of the colon demonstrate no evidence of obstruction or mass lesion. Scattered diverticuli are present without evidence of acute diverticulitis There is no mucosal thickening of the colon. The appendix is not clearly visualized. The adrenal glands are normal. Bilateral renal cysts are present. The largest cyst involves the midportion of the left kidney, is exophytic and measures up to 4.8 cm. Scans through the pelvis demonstrates extensive rectosigmoid diverticulosis without acute diverticulitis. There is mild mesentericstranding adjacent to the proximal and mid sigmoid colon which may relate to changes associated with prior episodes of diverticulitis. The bladder is unremarkable. The remainder of the pelvic contents are unremarkable. There is no mass or adenopathy. There is no free fluid. Arthritic changes of thespine are present with multilevel disc space narrowing and vacuum disc as well as endplate sclerosis and marginal spurring. The retroperitoneum is satisfactory in appearance without evidence of adenop athy. Atherosclerotic changes of the aorta and iliac arteries are noted. Colonic diverticulosis without evidence of acute diverticulitis. Bilateral renal cysts, the largestcyst is on the left measuring up to 4.8 cm. Report Dictated on Electronically Signed By: Jb Ahmadi DO Electronically Signed Date/Time: 02/28/2023 1:44 PM EDT History/Other: Past Medical History: Past Medical History: Diagnosis Date Acquired lymphedema Allergic Anxiety Arthritis Asthma Candidiasis of vulva and vagina CKD (chronic kidney disease) Depression Dietary counseling and surveillance Hyperlipidemia Hyperparathyroidism (HCC) Hypertension Hypothyroidism Malaise and fatigue Morbid obesity (HCC) Muscle weakness Nevus, non-neoplastic Pain in limb Pure hypercholesterolemia RLS (restless legs syndrome) Type 2 diabetes mellitus (HCC) Varicella Past Surgical History: Past Surgical History: Procedure Laterality Date APPENDECTOMY CHOLECYSTECTOMY 1980 COLONOSCOPY 06/19/2008 COLONOSCOPY W/ BIOPSIES AND POLYPECTOMY N/A 12/07/2022 Performed by Avery Marshall DO at [facility] ENDOSCOPY EYE SURGERY Bilateral early 90's LUNG REMOVAL, PARTIAL Left ROTATOR CUFF REPAIR Left TONSILLECTOMY Allergy(ies): Allergies Allergen Reactions Codeine Itching Other Percodan Oxycodone Hives Oxycodone-Aspirin Vancomycin Other reaction(s): U Family History: Family History Problem Relation Name Age of Onset Mental illness Mother GHANSHYAM COLEY Depression Mother GHANSHYAM COLEY Heart disease Father LATHA COLEY High Blood Pressure Father LATHA COLEY Asthma Father LATHA COLEY Hypertension Father LATHA COLEY Diabetes Brother CATRACHO COLEY Social History: Social History Tobacco Use Smoking status: Never Smokeless tobacco: Never Vaping Use Vaping Use: Never used Substance Use Topics Alcohol use: Yes Alcohol/week: 1.0 - 2.0 standard drink of alcohol Types: 1 - 2 Standard drinks or equivalent per week Comment: social; 1 mixed drink every 2 weeks Drug use: Never Portions of the information within this encounter were entered using an electronic dictation system. Best attempts were made to edit/proofread the information prior to note completion. Despite the review of information, some errors may remain. If there are questions related to the information contained within the note please contact the signing physician directly. I spent 75 minutes with the pt which involved coordination of care, medical evaluation, review of records, and/or counseling of the pt regarding his/her condition/disease state/prognosis on the date of this note. [facility] [id number] NoteProblem: Pain - Adult Goal: Verbalizes/displays adequate comfort level or baseline comfort level Outcome: Progressing Problem: Safety - Adult Goal: Free from fall injury [facility] of care note* Care Plan - Anaya Carr RN - 02/28/2023 6:10 PM EDT Problem: Pain - Adult Goal: Verbalizes/displays adequate comfort level or baseline comfort level Outcome: Progressing Problem: Safety - Adult Goal: Free from fall injury Outcome: Progressing [facility] [id number] History and physical note* Gabrielle Finch MD - 02/28/2023 5:07 PM EDT Images from the original note were not included. Attending History and Physical Admit Date: 02/28/2023 PCP: Shiv Lopez MD CHIEF COMPLAINT: low back pain/dysuria/polyuria/weakness Reason for Admission: DM2 with hyperglycemia/weakness/UTI History Obtained From: patient/chart HISTORY OF PRESENT ILLNESS: Radha is a 77 y.o. female with past medical history below who presents with chief complaint listed above. She saw her PCP yesterday for dysuria, polyuria and back pain and was put on augmentin. She hadnot yet started it, symptoms worsened and she presented to the ED. She is very weak. No radiation of the back pain. She denies chest pain, sob, cough, abdominal pain, nausea, vomiting, diarrhea, const ipation, fevers, or chills. Will admit for further evaluation and management. D/w pt and RN at bedside. Past Medical History: Past Medical History: Diagnosis Date Acquired lymphedema Allergic Anxiety Arthritis Asthma Candidiasis of vulva and vagina CKD (chronic kidney disease) Depression Dietary counseling and surveillance Hyperlipidemia Hyperparathyroidism (HCC) Hypertension Hypothyroidism Malaise and fatigue Morbid obesity (HCC) Muscle weakness Nevus, non-neoplastic Pain in limb Pure hypercholesterolemia RLS (restless legs syndrome) Type 2 diabetes mellitus (HCC) Varicella Past Surgical History: Past Surgical History: Procedure Laterality Date APPENDECTOMY CHOLECYSTECTOMY 1980 COLONOSCOPY 06/19/2008 COLONOSCOPY W/ BIOPSIES AND POLYPECTOMY N/A 12/07/2022 Performed by Avery Marshall DO at [facility] ENDOSCOPY EYE SURGERY Bilateral early 90's LUNG REMOVAL, PARTIAL Left ROTATOR CUFF REPAIR Left TONSILLECTOMY Social History: Social History Socioeconomic History Marital status: Spouse name: Not on file Number of children: Not on file Years of education: Not on file Highest education level: Not on file Occupational History Not on file Tobacco Use Smoking status: Never Smokeless tobacco: Never Vaping Use Vaping Use: Never used Substance and Sexual Activity Alcohol use: Yes Alcohol/week: 1.0 - 2.0 standard drink of alcohol Types: 1 - 2 Standard drinks or equivalent per week Comment: social; 1 mixed drink every 2 weeks Drug use: Never Sexual activity: Not Currently Partners: Male control/protection: None Comment: W/ UNTIL HIS ADMITTANCE TO SHELTER Other Topics Concern Not on file Social History Narrative Not on file Social Determinants of Health Financial Resource Strain: High Risk (04/26/2022) Overall Financial Resource Strain (CARDIA) Difficulty of Paying Living Expenses: Hard Food Insecurity: No Food Insecurity (04/26/2022) Hunger Vital Sign Worried About Running Out of Food in the Last Year: Never true Ran Out of Food in the Last Year: Never true Transportation Needs: No Transportation Needs (12/06/2022) PRAPARE - Transportation Lack of Transportation (Medical): No Lack of Transportation (Non-Medical): No Physical Activity: Not on file Stress: Not on file Social Connections: Not on file Intimate Partner Violence: Not At Risk (12/06/2022) Humiliation, Afraid, Rape, and Kick questionnaire Fear of Current or Ex-Partner: No Emotionally Abused: No Physically Abused: No Sexually Abused: No Housing Stability: Low Risk (12/06/2022) Housing Stability Vital Sign Unable to Pay for Housing in the Last Year: No Number of Places Lived in the Last Year: 1 Unstable Housing in the Last Year: No Family History: Family History Problem Relation Name Age of Onset Mental illness Mother GHANSHYAM COLEY Depression Mother GHANSHYAM COLEY Heart disease Father LATHA COLEY High Blood Pressure Father LATHA COLEY Asthma Father LATHA COLEY Hypertension Father LATHA COLEY Diabetes Brother CATRACHO COLEY Medications Prior to Admission: No current facility-administered medications on file prior to encounter. Current Outpatient Medications on File Prior to Encounter Medication Sig Dispense Refill albuterol 108 (90 Base) MCG/ACT inhaler Inhale 2 puffs every 6 hours as needed for wheezing. amLODIPine (Norvasc) 10 MG tablet Take 1 tablet (10 mg) by mouth daily. 90 tablet 1 amoxicillin-clavulanate (Augmentin) 875-125 MG tablet Take 1 tablet by mouth 2 times daily for 7 days. 14 tablet 0 baclofen (Lioresal) 10 MG tablet Take 1 tablet (10 mg) by mouth daily. 30 tablet 0 ergocalciferol (Vitamin D-2) 1.25 MG (15535 UT) capsule Take 1 capsule (1.25 mg) by mouth 1 (one) time per week. 90 capsule 1 Glucose Blood (Blood Glucose Test) strip 4 times daily. hydrOXYzine HCl (Atarax) 25 MG tablet Take 1 tablet (25 mg) by mouth every 8 hours as needed for anxiety. 90 tablet 0 insulin aspart (NovoLOG FLEXPEN) 100 UNIT/ML pen Inject 16 Units under the skin in the morning and 16 Units at noon and 16 Units in the evening and 16 Units before bedtime. Before meals.. 10 mL 1 levothyroxine (Synthroid, Levoxyl) 150 MCG tablet Take 1 tablet (150 mcg) by mouth daily. 30 tablet1 lisinopril 40 MG tablet Take 1 tablet (40 mg) by mouth daily. 90 tablet 1 meloxicam (Mobic) 7.5 MG tablet Take 1 tablet (7.5 mg) by mouth daily. 90 tablet 1 PARoxetine (Paxil) 20 MG tablet Take 1 tablet (20 mg) by mouth every morning. 90 tablet 1 potassium chloride CR (K-Tab) 20 MEQ ER tablet Take 20 mEq by mouth daily. Do not crush, chew, or split. pramipexole (Mirapex) 0.125 MG tablet Take 2 tablets (0.25 mg) by mouth Nightly. 60 tablet 1 rosuvastatin (Crestor) 10 MG tablet Take 1 tablet (10 mg) by mouth daily. 90 tablet 1 zolpidem (Ambien) 10 MG tablet Take 1 tablet (10 mg) by mouth Nightly as needed for sleep. Do not start before December 22, 2022. 30 tablet 0 [DISCONTINUED] insulin aspart (NovoLOG FLEXPEN) 100 UNIT/ML pen Inject 16 Units under the skin. Before meals. Allergies: Allergies Allergen Reactions Codeine Itching Other Percodan Oxycodone Hives Oxycodone-Aspirin Vancomycin Other reaction(s): U REVIEW OF SYSTEMS: As per HPI otherwise 10 system review is unremarkable. Vitals: BP 139/68 Pulse 75 Temp 36.4 C (97.5 F) (Temporal) Resp 18 SpO2 95% BMI Classification: Obese (BMI 30.0-39.9) Pulse Ox: SpO2 Av.5 % Min: 95 % Max: 98 % Supplemental O2: PHYSICAL EXAM: Physical Exam Vitals and nursing note reviewed. Constitutional: General: She is not in acute distress. Appearance: She is obese. HENT: Head: Normocephalic and atraumatic. Eyes: Extraocular Movements: Extraocular movements intact. Pupils: Pupils are equal, round, and reactive to light. Cardiovascular: Rate and Rhythm: Normal rate and regular rhythm. Pulses: Normal pulses. Pulmonary: Effort: Pulmonary effort is normal. Breath sounds: Normal breath sounds. Abdominal: General: Bowel sounds are normal. There is no distension. Palpations: Abdomen is soft. Tenderness: There is no abdominal tenderness. There is no rebound. Musculoskeletal: General: Normal range of motion. Cervical back: Normal range of motion and neck supple. Right lower leg: No edema. Left lower leg: No edema. Skin: General: Skin is warm. Neurological: General: No focal deficit present. Mental Status: She is alert and oriented to person, place, and time. Mental status is at baseline. Psychiatric: Mood and Affect: Mood normal. DATA: CBC: Recent Labs 02/27/23 1551 02/28/23 1232 WBC 10.1 12.3* RBC 4.40 4.11 HGB 12.9 11.5* HCT 40.1 36.0 MCV 91.1 87.5 RDW 12.1 13.8 PLT 362 278 BMP: Recent Labs 02/27/23 1551 02/28/23 1232 NA -- 130* K -- 4.0 CL -- 96* CO2 24 26 BUN 23 20* CREATININE 1.33* 1.22* GLUCOSE 524* 483* CALCIUM 9.1 8.4 ANIONGAP -- 8 LIVER PROFILE: Recent Labs 02/27/23 1551 02/28/23 1232 AST 18 24 ALT 17 18 BILITOT 0.6 0.5 ALKPHOS 122 119 PROT 6.9 6.6 PT/INR: No results for input(s): PROTIME, INR in the last 72 hours. CARDIAC ENZYMES: No results for input(s): TROPONINI in the last 72 hours. Procalcitonin: No results found for: PROCAL Urine Culture: Results for orders placed or performed in visit on 02/27/23 Urine culture (clean catch) Specimen: Urine, Clean Catch Result Value Ref Range Urine Culture SEE NOTE COVID-19 PCR: No results for input(s): COVID19 in the last 72 hours. I reviewed: [x] laboratory results [x] radiographic results At the time of today's encounter. Pt was advised of the results. IMPRESSION: Weakness Dysuria rule out UTI LING/CKD Hyponatremia HTN DM2 with hyperglycemia anemia Hyperlipidemia Hypothyroidism Depression RLS obesity Medical Decision Making: I discussed management with the ED clinician and agree with need for hospitalization, IVF, SSI, POCT, insulin, empiric antibiotics for now, follow up cx's, follow up labs, review home meds and resumeas appropriate, Geriatrics and Endocrinology evaluations, PT/OT, discharge planning, see admission orders. -Discussed with ED provider and agree with their plan for admission -PT/OT eval/increase activity -am labs, replace lytes prn -vitals per routine -home meds as ordered -DVT prophylaxis: [x] Lovenox [] Heparin [] SCDs [x] Encourage ambulation [] Already on Anticoagulation Anticipated Discharge - Date - 03/02-03/03 - Location - Skilled Facility - Pending the following - clinical improvement, completion of work up and when OK with consultants Total time spent (which include face to face and non face to face encounters) : 61 minutes Toxic drug monitoring/narrow therapeutic index drug monitoring : # Drug name : # Route administered : # Method of monitoring : Extended Emergency Contact Information Primary Emergency Contact: Angel Roger Address: [address] [place] Relation: Child Code status: Prior -see below for additional orders, further recommendations to follow Orders Placed This Encounter Procedures Urine culture CT abdomen pelvis wo IV contrast CBC auto differential Comprehensive metabolic panel Urinalysis Complete with reflex to Culture Complete Urinalysis Vital Signs HYPOGLYCEMIA TREATMENT: blood glucose less than 50 mg/dL and patient ALERT and TOLERATING PO HYPOGLYCEMIA TREATMENT: blood glucose less than 70 mg/dL and patient NOT ALERT or NPO Admit to inpatient Please forward a copy of this H&P to the patient's PCP. Thank you. [id number] NoteAttending History and Physical Admit Date: 02/28/2023 PCP: Shiv Lopez MD CHIEF COMPLAINT: low back pain/dysuria/polyuria/weakness Reason for Admission: DM2 with hyperglycemia/weakness/UTI History Obtained From: patient/chart HISTORY OF PRESENT ILLNESS: Radha is a 77 y.o. female with past medical history below who presents with chief complaint listed above. She saw her PCP yesterday for dysuria, polyuria and back pain and was put on augmentin. She had not yet started it, symptoms worsened and she presented to the ED. She is very weak. No radiation of the back pain. She denies chest pain, sob, cough, abdominal pain, nausea, vomiting, diarrhea, constipation, fevers, or chills. Will admit for further evaluation and management. D/w pt and RN at bedside. Past Medical History: Past Medical History: Diagnosis Date Acquired lymphedema Allergic Anxiety Arthritis Asthma Candidiasis of vulva and vagina CKD (chronic kidney disease) Depression Dietary counseling and surveillance Hyperlipidemia Hyperparathyroidism (HCC) Hypertension Hypothyroidism Malaise and fatigue Morbid obesity (HCC) Muscle weakness Nevus, non-neoplastic Pain in limb Pure hypercholesterolemia RLS (restless legs syndrome) Type 2 diabetes mellitus (HCC) Varicella Past Surgical History: Past Surgical History: Procedure Laterality Date APPENDECTOMY CHOLECYSTECTOMY 1979 COLONOSCOPY 06/19/2008 COLONOSCOPY W/ BIOPSIES AND POLYPECTOMY N/A 12/07/2022 Performed by Avery Marshall DO at [facility] ENDOSCOPY EYE SURGERY Bilateral early 90's LUNG REMOVAL, PARTIAL Left ROTATOR CUFF REPAIR Left TONSILLECTOMY Social History: Social History Socioeconomic History Marital status: Spouse name: Not on file Number of children: Not on file Years of education: Not on file Highest education level: Not on file Occupational History Not on file Tobacco Use Smoking status: Never Smokeless tobacco: Never Vaping Use Vaping Use: Never used Substance and Sexual Activity Alcohol use: Yes Alcohol/week: 1.0 - 2.0 standard drink of alcohol Types: 1 - 2 Standard drinks or equivalent per week Comment: social; 1 mixed drink every 2 weeks Drug use: Never Sexual activity: Not Currently Partners: Male control/protection: None Comment: W/ UNTIL HIS ADMITTANCE TO SHELTER Other Topics Concern Not on file Social History Narrative Not on file Social Determinants of Health Financial Resource Strain: High Risk (04/26/2022) Overall Financial Resource Strain (CARDIA) Difficulty of Paying Living Expenses: Hard Food Insecurity: No Food Insecurity (04/26/2022) Hunger Vital Sign Worried About Running Out of Food in the Last Year: Never true Ran Out of Food in the Last Year: Never true Transportation Needs: No Transportation Needs (12/06/2022) PRAPARE - Transportation Lack of Transportation (Medical): No Lack of Transportation (Non-Medical): No Physical Activity: Not on file Stress: Not on file Social Connections: Not on file Intimate Partner Violence: Not At Risk (12/06/2022) Humiliation, Afraid, Rape, and Kick questionnaire Fear of Current or Ex-Partner: No Emotionally Abused: No Physically Abused: No Sexually Abused: No Housing Stability: Low Risk (12/06/2022) Housing Stability Vital Sign Unable to Pay for Housing in the Last Year: No Number of Places Lived in the Last Year: 1 Unstable Housing in the Last Year: No Family History: Family History Problem Relation Name Age of Onset Mental illness Mother GHANSHYAM COLEY Depression Mother GHANSHYAM COLEY Heart disease Father LATHA COLEY High Blood Pressure Father LATHA COLEY Asthma Father LATHA COLEY Hypertension Father LATHA COLEY Diabetes Brother CATRACHO COLEY Medications Prior to Admission: No current facility-administered medications on file prior to encounter. Current Outpatient Medications on File Prior to Encounter Medication Sig Dispense Refill albuterol 108 (90 Base) MCG/ACT inhaler Inhale 2 puffs every 6 hours as needed for wheezing. amLODIPine (Norvasc) 10 MG tablet Take 1 tablet (10 mg) by mouth daily. 90 tablet 1 amoxicillin-clavulanate (Augmentin) 875-125 MG tablet Take 1 tablet by mouth 2 times daily for 7 days. 14 tablet 0 baclofen (Lioresal) 10 MG tablet Take 1 tablet (10 mg) by mouth daily. 30 tablet 0 ergocalciferol (Vitamin D-2) 1.25 MG (98501 UT) capsule Take 1 capsule (1.25 mg) by mouth 1 (one) time per week. 90 capsule 1 Glucose Blood (Blood Glucose Test) strip 4 times daily. hydrOXYzine HCl (Atarax) 25 MG tablet Take 1 tablet (25 mg) by mouth every 8 hours as needed for anxiety. 90 tablet 0 insulin aspart (NovoLOG FLEXPEN) 100 UNIT/ML pen Inject 16 Units under the skin in the morning and 16 Units at noon and 16 Units in the evening and 16 Units before bedtime. Before meals.. 10 mL 1 levothyroxine (Synthroid, Levoxyl) 150 MCG tablet Take 1 tablet (150 mcg) by m (more content not included)...[facility]09-12-2023 History and physical note* Gabrielle Finch MD - 02/28/2023 5:07 PM EDT Images from the original note were not included. Attending History and Physical Admit Date: 02/28/2023 PCP: Shiv Lopez MD CHIEF COMPLAINT: low back pain/dysuria/polyuria/weakness Reason for Admission: DM2 with hyperglycemia/weakness/UTI History Obtained From: patient/chart HISTORY OF PRESENT ILLNESS: Radha is a 77 y.o. female with past medical history below who presents with chief complaint listed above. She saw her PCP yesterday for dysuria, polyuria and back pain and was put on augmentin. She hadnot yet started it, symptoms worsened and she presented to the ED. She is very weak. No radiation of the back pain. She denies chest pain, sob, cough, abdominal pain, nausea, vomiting, diarrhea, const ipation, fevers, or chills. Will admit for further evaluation and management. D/w pt and RN at bedside. Past Medical History: Past Medical History: Diagnosis Date Acquired lymphedema Allergic Anxiety Arthritis Asthma Candidiasis of vulva and vagina CKD (chronic kidney disease) Depression Dietary counseling and surveillance Hyperlipidemia Hyperparathyroidism (HCC) Hypertension Hypothyroidism Malaise and fatigue Morbid obesity (HCC) Muscle weakness Nevus, non-neoplastic Pain in limb Pure hypercholesterolemia RLS (restless legs syndrome) Type 2 diabetes mellitus (HCC) Varicella Past Surgical History: Past Surgical History: Procedure Laterality Date APPENDECTOMY CHOLECYSTECTOMY 1979 COLONOSCOPY 06/19/2008 COLONOSCOPY W/ BIOPSIES AND POLYPECTOMY N/A 12/07/2022 Performed by Avery Marshall DO at [facility] ENDOSCOPY EYE SURGERY Bilateral early 90's LUNG REMOVAL, PARTIAL Left ROTATOR CUFF REPAIR Left TONSILLECTOMY Social History: Social History Socioeconomic History Marital status: Spouse name: Not on file Number of children: Not on file Years of education: Not on file Highest education level: Not on file Occupational History Not on file Tobacco Use Smoking status: Never Smokeless tobacco: Never Vaping Use Vaping Use: Never used Substance and Sexual Activity Alcohol use: Yes Alcohol/week: 1.0 - 2.0 standard drink of alcohol Types: 1 - 2 Standard drinks or equivalent per week Comment: social; 1 mixed drink every 2 weeks Drug use: Never Sexual activity: Not Currently Partners: Male control/protection: None Comment: W/ UNTIL HIS ADMITTANCE TO SHELTER Other Topics Concern Not on file Social History Narrative Not on file Social Determinants of Health Financial Resource Strain: High Risk (04/26/2022) Overall Financial Resource Strain (CARDIA) Difficulty of Paying Living Expenses: Hard Food Insecurity: No Food Insecurity (04/26/2022) Hunger Vital Sign Worried About Running Out of Food in the Last Year: Never true Ran Out of Food in the Last Year: Never true Transportation Needs: No Transportation Needs (12/06/2022) PRAPARE - Transportation Lack of Transportation (Medical): No Lack of Transportation (Non-Medical): No Physical Activity: Not on file Stress: Not on file Social Connections: Not on file Intimate Partner Violence: Not At Risk (12/06/2022) Humiliation, Afraid, Rape, and Kick questionnaire Fear of Current or Ex-Partner: No Emotionally Abused: No Physically Abused: No Sexually Abused: No Housing Stability: Low Risk (12/06/2022) Housing Stability Vital Sign Unable to Pay for Housing in the Last Year: No Number of Places Lived in the Last Year: 1 Unstable Housing in the Last Year: No Family History: Family History Problem Relation Name Age of Onset Mental illness Mother GHANSHYAM COLEY Depression Mother GHANSHYAM COLEY Heart disease Father LATHA COLEY High Blood Pressure Father LAHTA COLEY Asthma Father LATHA COLEY Hypertension Father LATHA COLEY Diabetes Brother CATRACHO COLEY Medications Prior to Admission: No current facility-administered medications on file prior to encounter. Current Outpatient Medications on File Prior to Encounter Medication Sig Dispense Refill albuterol 108 (90 Base) MCG/ACT inhaler Inhale 2 puffs every 6 hours as needed for wheezing. amLODIPine (Norvasc) 10 MG tablet Take 1 tablet (10 mg) by mouth daily. 90 tablet 1 amoxicillin-clavulanate (Augmentin) 875-125 MG tablet Take 1 tablet by mouth 2 times daily for 7 days. 14 tablet 0 baclofen (Lioresal) 10 MG tablet Take 1 tablet (10 mg) by mouth daily. 30 tablet 0 ergocalciferol (Vitamin D-2) 1.25 MG (65945 UT) capsule Take 1 capsule (1.25 mg) by mouth 1 (one) time per week. 90 capsule 1 Glucose Blood (Blood Glucose Test) strip 4 times daily. hydrOXYzine HCl (Atarax) 25 MG tablet Take 1 tablet (25 mg) by mouth every 8 hours as needed for anxiety. 90 tablet 0 insulin aspart (NovoLOG FLEXPEN) 100 UNIT/ML pen Inject 16 Units under the skin in the morning and 16 Units at noon and 16 Units in the evening and 16 Units before bedtime. Before meals.. 10 mL 1 levothyroxine (Synthroid, Levoxyl) 150 MCG tablet Take 1 tablet (150 mcg) by mouth daily. 30 tablet1 lisinopril 40 MG tablet Take 1 tablet (40 mg) by mouth daily. 90 tablet 1 meloxicam (Mobic) 7.5 MG tablet Take 1 tablet (7.5 mg) by mouth daily. 90 tablet 1 PARoxetine (Paxil) 20 MG tablet Take 1 tablet (20 mg) by mouth every morning. 90 tablet 1 potassium chloride CR (K-Tab) 20 MEQ ER tablet Take 20 mEq by mouth daily. Do not crush, chew, or split. pramipexole (Mirapex) 0.125 MG tablet Take 2 tablets (0.25 mg) by mouth Nightly. 60 tablet 1 rosuvastatin (Crestor) 10 MG tablet Take 1 tablet (10 mg) by mouth daily. 90 tablet 1 zolpidem (Ambien) 10 MG tablet Take 1 tablet (10 mg) by mouth Nightly as needed for sleep. Do not start before December 22, 2022. 30 tablet 0 [DISCONTINUED] insulin aspart (NovoLOG FLEXPEN) 100 UNIT/ML pen Inject 16 Units under the skin. Before meals. Allergies: Allergies Allergen Reactions Codeine Itching Other Percodan Oxycodone Hives Oxycodone-Aspirin Vancomycin Other reaction(s): U REVIEW OF SYSTEMS: As per HPI otherwise 10 system review is unremarkable. Vitals: BP 139/68 Pulse 75 Temp 36.4 C (97.5 F) (Temporal) Resp 18 SpO2 95% BMI Classification: Obese (BMI 30.0-39.9) Pulse Ox: SpO2 Av.5 % Min: 95 % Max: 98 % Supplemental O2: PHYSICAL EXAM: Physical Exam Vitals and nursing note reviewed. Constitutional: General: She is not in acute distress. Appearance: She is obese. HENT: Head: Normocephalic and atraumatic. Eyes: Extraocular Movements: Extraocular movements intact. Pupils: Pupils are equal, round, and reactive to light. Cardiovascular: Rate and Rhythm: Normal rate and regular rhythm. Pulses: Normal pulses. Pulmonary: Effort: Pulmonary effort is normal. Breath sounds: Normal breath sounds. Abdominal: General: Bowel sounds are normal. There is no distension. Palpations: Abdomen is soft. Tenderness: There is no abdominal tenderness. There is no rebound. Musculoskeletal: General: Normal range of motion. Cervical back: Normal range of motion and neck supple. Right lower leg: No edema. Left lower leg: No edema. Skin: General: Skin is warm. Neurological: General: No focal deficit present. Mental Status: She is alert and oriented to person, place, and time. Mental status is at baseline. Psychiatric: Mood and Affect: Mood normal. DATA: CBC: Recent Labs 02/27/23 1551 02/28/23 1232 WBC 10.1 12.3* RBC 4.40 4.11 HGB 12.9 11.5* HCT 40.1 36.0 MCV 91.1 87.5 RDW 12.1 13.8 PLT 362 278 BMP: Recent Labs 02/27/23 1551 02/28/23 1232 NA -- 130* K -- 4.0 CL -- 96* CO2 24 26 BUN 23 20* CREATININE 1.33* 1.22* GLUCOSE 524* 483* CALCIUM 9.1 8.4 ANIONGAP -- 8 LIVER PROFILE: Recent Labs 02/27/23 1551 02/28/23 1232 AST 18 24 ALT 17 18 BILITOT 0.6 0.5 ALKPHOS 122 119 PROT 6.9 6.6 PT/INR: No results for input(s): PROTIME, INR in the last 72 hours. CARDIAC ENZYMES: No results for input(s): TROPONINI in the last 72 hours. Procalcitonin: No results found for: PROCAL Urine Culture: Results for orders placed or performed in visit on 02/27/23 Urine culture (clean catch) Specimen: Urine, Clean Catch Result Value Ref Range Urine Culture SEE NOTE COVID-19 PCR: No results for input(s): COVID19 in the last 72 hours. I reviewed: [x] laboratory results [x] radiographic results At the time of today's encounter. Pt was advised of the results. IMPRESSION: Weakness Dysuria rule out UTI LING/CKD Hyponatremia HTN DM2 with hyperglycemia anemia Hyperlipidemia Hypothyroidism Depression RLS obesity Medical Decision Making: I discussed management with the ED clinician and agree with need for hospitalization, IVF, SSI, POCT, insulin, empiric antibiotics for now, follow up cx's, follow up labs, review home meds and resumeas appropriate, Geriatrics and Endocrinology evaluations, PT/OT, discharge planning, see admission orders. -Discussed with ED provider and agree with their plan for admission -PT/OT eval/increase activity -am labs, replace lytes prn -vitals per routine -home meds as ordered -DVT prophylaxis: [x] Lovenox [] Heparin [] SCDs [x] Encourage ambulation [] Already on Anticoagulation Anticipated Discharge - Date - 03/02-03/03 - Location - Skilled Facility - Pending the following - clinical improvement, completion of work up and when OK with consultants Total time spent (which include face to face and non face to face encounters) : 61 minutes Toxic drug monitoring/narrow therapeutic index drug monitoring : # Drug name : # Route administered : # Method of monitoring : Extended Emergency Contact Information Primary Emergency Contact: Angel Roger Address: [address] [place] Relation: Child Code status: Prior -see below for additional orders, further recommendations to follow Orders Placed This Encounter Procedures Urine culture CT abdomen pelvis wo IV contrast CBC auto differential Comprehensive metabolic panel Urinalysis Complete with reflex to Culture Complete Urinalysis Vital Signs HYPOGLYCEMIA TREATMENT: blood glucose less than 50 mg/dL and patient ALERT and TOLERATING PO HYPOGLYCEMIA TREATMENT: blood glucose less than 70 mg/dL and patient NOT ALERT or NPO Admit to inpatient Please forward a copy of this H&P to the patient's PCP. Thank you. documented in this [facility]09-12-2023 Emergency department Note* Tasneem Whaley MD - 02/28/2023 11:28 AM EDT [facility] 1E MED SURG EMERGENCY DEPARTMENT ENCOUNTER Pt Name: Radha Sandoval Birthdate 1945 Date of evaluation: 02/28/2023 Provider: Tasneem Whaley MD CHIEF COMPLAINT Chief Complaint Patient presents with Back Pain HISTORY OF PRESENT ILLNESS (Location/Symptom, Timing/Onset, Context/Setting, Quality, Duration, Modifying Factors, Severity) Note limiting factors. I wore a surgical mask for the entirety of this encounter. Radha Sandoval is a 77 y.o. female with a past medical history of CKD, hypertension, hyperlipidemia, obesity, urinary tract infection, presenting at the behest of her family medicine team who is concerned for dehydration and mild hyponatremia as well as renal injury. Patient presents with suprapubic cramping and lower back pain that radiates up into her bilateral flanks. Symptom nausea but no vomiting and felt feverish and reported a fever at home but does not have one currently. To call from her family medicine team after seeing them in clinic yesterday and was told that her labs were abnormal and to come into the hospital. Past Medical history reviewed. REVIEW OF SYSTEMS Negative except for above HPI Review of Systems PAST MEDICAL HISTORY Past Medical History: Diagnosis Date Acquired lymphedema Allergic Anxiety Arthritis Asthma Candidiasis of vulva and vagina CKD (chronic kidney disease) Depression Dietary counseling and surveillance Hyperlipidemia Hyperparathyroidism (HCC) Hypertension Hypothyroidism Malaise and fatigue Morbid obesity (HCC) Muscle weakness Nevus, non-neoplastic Pain in limb Pure hypercholesterolemia RLS (restless legs syndrome) Type 2 diabetes mellitus (HCC) Varicella SURGICAL HISTORY Past Surgical History: Procedure Laterality Date APPENDECTOMY CHOLECYSTECTOMY 1979 COLONOSCOPY 06/19/2008 COLONOSCOPY W/ BIOPSIES AND POLYPECTOMY N/A 12/07/2022 Performed by Avery Marshall DO at [facility] ENDOSCOPY EYE SURGERY Bilateral early 90' LUNG REMOVAL, PARTIAL Left ROTATOR CUFF REPAIR Left TONSILLECTOMY CURRENT MEDICATIONS Current Discharge Medication List CONTINUE these medications which have NOT CHANGED Details albuterol 108 (90 Base) MCG/ACT inhaler Inhale 2 puffs every 6 hours as needed for wheezing. amLODIPine (Norvasc) 10 MG tablet Take 1 tablet (10 mg) by mouth daily. Qty: 90 tablet, Refills: 1 Associated Diagnoses: Primary hypertension amoxicillin-clavulanate (Augmentin) 875-125 MG tablet Take 1 tablet by mouth 2 times daily for 7 days. Qty: 14 tablet, Refills: 0 Associated Diagnoses: Acute cystitis with hematuria baclofen (Lioresal) 10 MG tablet Take 1 tablet (10 mg) by mouth daily. Qty: 30 tablet, Refills: 0 Associated Diagnoses: Chronic left shoulder pain ergocalciferol (Vitamin D-2) 1.25 MG (80812 UT) capsule Take 1 capsule (1.25 mg) by mouth 1 (one) time per week. Qty: 90 capsule, Refills: 1 Associated Diagnoses: Vitamin D deficiency Glucose Blood (Blood Glucose Test) strip 4 times daily. hydrOXYzine HCl (Atarax) 25 MG tablet Take 1 tablet (25 mg) by mouth every 8 hours as needed for anxiety. Qty: 90 tablet, Refills: 0 Associated Diagnoses: Moderate episode of recurrent major depressive disorder (HCC) insulin aspart (NovoLOG FLEXPEN) 100 UNIT/ML pen Inject 16 Units under the skin in the morning and 16 Units at noon and 16 Units in the evening and 16 Units before bedtime. Before meals.. Qty: 10 mL, Refills: 1 levothyroxine (Synthroid, Levoxyl) 150 MCG tablet Take 1 tablet (150 mcg) by mouth daily. Qty: 30 tablet, Refills: 1 Associated Diagnoses: Acquired hypothyroidism lisinopril 40 MG tablet Take 1 tablet (40 mg) by mouth daily. Qty: 90 tablet, Refills: 1 Associated Diagnoses: Primary hypertension meloxicam (Mobic) 7.5 MG tablet Take 1 tablet (7.5 mg) by mouth daily. Qty: 90 tablet, Refills: 1 Associated Diagnoses: Chronic left shoulder pain PARoxetine (Paxil) 20 MG tablet Take 1 tablet (20 mg) by mouth every morning. Qty: 90 tablet, Refills: 1 Associated Diagnoses: Moderate episode of recurrent major depressive disorder (HCC) potassium chloride CR (K-Tab) 20 MEQ ER tablet Take 20 mEq by mouth daily. Do not crush, chew, or split. pramipexole (Mirapex) 0.125 MG tablet Take 2 tablets (0.25 mg) by mouth Nightly. Qty: 60 tablet, Refills: 1 Associated Diagnoses: Restless legs syndrome (RLS) rosuvastatin (Crestor) 10 MG tablet Take 1 tablet (10 mg) by mouth daily. Qty: 90 tablet, Refills: 1 Associated Diagnoses: Hyperlipidemia with target LDL less than 70 zolpidem (Ambien) 10 MG tablet Take 1 tablet (10 mg) by mouth Nightly as needed for sleep. Do not start before December 22, 2022. Qty: 30 tablet, Refills: 0 Associated Diagnoses: Primary insomnia ALLERGIES Codeine, Other, Oxycodone, Oxycodone-aspirin, and Vancomycin FAMILY HISTORY Family History Problem Relation Name Age of Onset Mental illness Mother GHANSHYAM COLEY Depression Mother GHANSHYAM COLEY Heart disease Father LATHA COLEY High Blood Pressure Father LATHA COLEY Asthma Father LATHA COLEY Hypertension Father LATHA COLEY Diabetes Brother CATRACHO COLEY SOCIAL HISTORY Social History Socioeconomic History Marital status: Tobacco Use Smoking status: Never Smokeless tobacco: Never Vaping Use Vaping Use: Never used Substance and Sexual Activity Alcohol use: Yes Alcohol/week: 1.0 - 2.0 standard drink of alcohol Types: 1 - 2 Standard drinks or equivalent per week Comment: social; 1 mixed drink every 2 weeks Drug use: Never Sexual activity: Not Currently Partners: Male control/protection: None Comment: W/ UNTIL HIS ADMITTANCE TO SHELTER Social Determinants of Health Financial Resource Strain: High Risk (02/28/2023) Overall Financial Resource Strain (CARDIA) Difficulty of Paying Living Expenses: Hard Food Insecurity: No Food Insecurity (02/28/2023) Hunger Vital Sign Worried About Running Out of Food in the Last Year: Never true Ran Out of Food in the Last Year: Never true Transportation Needs: No Transportation Needs (02/28/2023) PRAPARE - Transportation Lack of Transportation (Medical): No Lack of Transportation (Non-Medical): No Physical Activity: Insufficiently Active (02/28/2023) Exercise Vital Sign Days of Exercise per Week: 2 days Minutes of Exercise per Session: 20 min Stress: No Stress Concern Present (02/28/2023) [employer] [place] [employer] - Occupational Stress Questionnaire Feeling of Stress : Only a little Social Connections: Unknown (02/28/2023) Social Connection and Isolation Panel [NHANES] Frequency of Communication with Friends and Family: Three times a week Frequency of Social Gatherings with Friends and Family: Three times a week Intimate Partner Violence: Not At Risk (02/28/2023) Humiliation, Afraid, Rape, and Kick questionnaire Fear of Current or Ex-Partner: No Emotionally Abused: No Physically Abused: No Sexually Abused: No Housing Stability: Low Risk (02/28/2023) Housing Stability Vital Sign Unable to Pay for Housing in the Last Year: No Number of Places Lived in the Last Year: 1 Unstable Housing in the Last Year: No SCREENINGS PHYSICAL EXAM (up to 7 for level 4, 8 or more for level 5) @EDTRIAGEVSS@ Physical Exam Vitals and nursing note reviewed. Constitutional: General: She is not in acute distress. Appearance: Normal appearance. HENT: Head: Normocephalic and atraumatic. Nose: Nose normal. Eyes: Conjunctiva/sclera: Conjunctivae normal. Cardiovascular: Rate and Rhythm: Normal rate. Pulmonary: Effort: Pulmonary effort is normal. No respiratory distress. Abdominal: General: Abdomen is flat. There is no distension. Tenderness: There is abdominal tenderness (Suprapubic). There is right CVA tenderness and left CVA tenderness. Skin: General: Skin is warm and dry. Capillary Refill: Capillary refill takes less than 2 seconds. Neurological: Mental Status: She is alert. Psychiatric: Behavior: Behavior normal. EMERGENCY DEPARTMENT COURSE and DIFFERENTIAL DIAGNOSIS/MDM: Vitals: Vitals: 03/01/23 0834 03/01/23 0834 03/01/23 0838 03/01/232030 BP: 138/57 (!) 159/54 BP Location: Right arm Right arm Patient Position: Lying Pulse: 78 78 80 75 Resp: 17 Temp: 36.6 C (97.8 F) 37.2 C (98.9 F) TempSrc: Temporal Temporal SpO2: 93% 93% 93% 95% Medications glucose oral gel 15 g (has no administration in time range) dextrose 50 % solution 12.5 g (has no administration in time range) albuterol 108 (90 Base) MCG/ACT inhaler 2 puff (has no administration in time range) amLODIPine (Norvasc) tablet 10 mg (10 mg Oral Given 03/01/232109) amoxicillin-clavulanate (Augmentin) 875-125 MG per tablet 1 tablet (1 tablet Oral Given 03/01/232109) baclofen (Lioresal) tablet 10 mg (10 mg Oral Given 03/01/232110) levothyroxine (Synthroid, Levoxyl) tablet 150 mcg (150 mcg Oral Given 03/01/23633) pramipexole (Mirapex) tablet 0.25 mg (0.25 mg Oral Given 03/01/232111) rosuvastatin (Crestor) tablet 10 mg (10 mg Oral Given 03/01/232109) glucagon (human recombinant) injection 1 mg (has no administration in time range) dextrose 5 % infusion (has no administration in time range) Insulin Lispro (Humalog) injection 0-12 Units ( SubCUTAneous Not Given 03/01/231699) acetaminophen (Tylenol) tablet 650 mg (650 mg Oral Given 03/01/23634) Or acetaminophen (Tylenol) suppository 650 mg ( Rectal See Alternative 03/01/23634) ondansetron ODT (Zofran-ODT) disintegrating tablet 4 mg (has no administration in time range) Or ondansetron (Zofran) injection 4 mg (has no administration in time range) polyethylene glycol (PEG) 3350 (Miralax) packet 17 g (has no administration in time range) Influenza Vac A&B SA Adj quadrivalent (Fluad) vaccine 0.5 mL (has no administration in time range) enoxaparin (Lovenox) syringe 40 mg (40 mg SubCUTAneous Given 03/01/23937) PARoxetine (Paxil) tablet 20 mg (has no administration in time range) busPIRone (Buspar) tablet 5 mg (has no administration in time range) cholecalciferol (Vitamin D3) tablet 1,000 Units (has no administration in time range) melatonin tablet 3 mg (3 mg Oral Given 03/01/232109) melatonin tablet 3 mg (has no administration in time range) insulin glargine (Lantus) injection 19 Units (19 Units SubCUTAneous Given 03/01/231847) Insulin Lispro (Humalog) injection 6 Units (6 Units SubCUTAneous Given 03/01/232110) chlorhexidine (Hibiclens) 4 % liquid (has no administration in time range) lactated ringers bolus 1,000 mL (0 mL IntraVENous Stopped 02/28/23 1458) insulin regular (HumuLIN R,NovoLIN R) injection 10 Units (10 Units SubCUTAneous Given 02/28/23 1358) Medical Decision Making ADDITIONAL MEDICAL DESICION MAKING IS DOCUMENTED IN THE ED COURSE. PLEASE REFER TO ED COURSE. Radha Sandoval is a 77 y.o. female with a past medical history of CKD, hypertension, hyperlipidemia, obesity, urinary tract infection, presenting at the behest of her family medicine team who is concerned for dehydration and mild hyponatremia as well as renal injury. Patient presents with suprapubic cramping and lower back pain that radiates up into her bilateral flanks. Symptom nausea but no vomiting and felt feverish and reported a fever at home but does not have one currently. To call from her family medicine team after seeing them in clinic yesterday and was told that her labs were abnormal and to come into the hospital. On physical exam: Suprapubic tenderness, bilateral CVA tenderness Differential diagnoses considered include: Nephritis, renal stone, LING, hyponatremia Plan: CBC, BMP, IV fluid resuscitation, urinalysis, CT abdomen pelvis Problems Addressed: LING (acute kidney injury) (CMS/HCC) ([facility]): complicated acute illness or injury Pyelonephritis: complicated acute illness or injury Amount and/or Complexity of Data Reviewed Labs: ordered. Decision-making details documented in ED Course. Radiology: ordered. Decision-making details documented in ED Course. Risk OTC drugs. Prescription drug management. Decision regarding hospitalization. . All independent interpretations of EKGs are documented in Ep[facility]any. ED Course as of 03/02/2324Feb 28, 2023 133 SODIUM(!): 130 [BJ] 1332 Creatinine(!): 1.22 [BJ] 1332 eGFR(!): 45.2 [BJ] 1332 GLUCOSE(!!): 483 [BJ] 1332 Auto WBC(!): 12.3 [BJ] 1332 HEMATOCRIT: 36.0 [BJ] 1332 HEMOGLOBIN(!): 11.5 [BJ] 1351 CT abdomen pelvis wo IV contrast Bili CT unremarkable. Patient does have urinary tract infection which she is being treated for, already had antibiotics today. We will admit for further IV antibiotics, blood sugar control and repeatsodium level. [BJ] 1456 Nitrite, Urine(!): Positive [BJ] ED Course User Index [BJ] Tasneem Whaley MD Diagnoses as of 03/02/23 0025 Pyelonephritis LING (acute kidney injury) ([facility]) ([facility]) CONSULTS: IP CONSULT TO ENDOCRINOLOGY IP CONSULT TO GERIATRICS IP CONSULT TO [facility] TO CONSULT INSOMNIA PROCEDURES: Unless otherwise noted below, none Procedures FINAL IMPRESSION 1. LING (acute kidney injury) ([facility]) ([facility]) 2. Pyelonephritis 3. Polypharmacy 4. Insomnia, unspecified type 5. Pressure ulcer of right buttock, stage 3 ([facility]) DISPOSITION/PLAN DISPOSITION Admit 02/28/2023 03:42:32 PM PATIENT REFERRED TO: [facility] Geriatrics [address] [facility] [address] DISCHARGE MEDICATIONS: Current Discharge Medication List @[facility]([id number]:LAST:1)@ (Please note: Portions of this note were completed with a voice recognition program. Efforts were made to edit the dictations but occasionally words and phrases are mis-transcribed.) Form [id number] Tasneem Whaley MD (electronically signed) Emergency Medicine Provider Tasneem Whaley MD 03/02/23 0025 * Farrah Londono RN - 02/28/2023 11:28 AM EDT Pt presents for admission per her PCP. Was sent to get kidneys evaluated per pt. Pt endorses lower back pain and burning and pain with urination. Was recently admitted. [id number] Emergency department Triage note* Farrah Lodnono RN - 02/28/2023 11:28 AM EDT Pt presents for admission per her PCP. Was sent to get kidneys evaluated per pt. Pt endorses lower back pain and burning and pain with urination. [facility] recently [facility]. [id number] Emergency department Note* Tasneem Whaley MD - 02/28/2023 11:28 AM EDT [facility] 1E MED SURG EMERGENCY DEPARTMENT ENCOUNTER Pt Name: Radha Sandoval Birthdate 1945 Date of evaluation: 02/28/2023 Provider: Tasneem Whaley MD CHIEF COMPLAINT Chief Complaint Patient presents with Back Pain HISTORY OF PRESENT ILLNESS (Location/Symptom, Timing/Onset, Context/Setting, Quality, Duration, Modifying Factors, Severity) Note limiting factors. I wore a surgical mask for the entirety of this encounter. Radha Sandoval is a 77 y.o. female with a past medical history of CKD, hypertension, hyperlipidemia, obesity, urinary tract infection, presenting at the behest of her family medicine team who is concerned for dehydration and mild hyponatremia as well as renal injury. Patient presents with suprapubic cramping and lower back pain that radiates up into her bilateral flanks. Symptom nausea but no vomiting and felt feverish and reported a fever at home but does not have one currently. To call from her family medicine team after seeing them in clinic yesterday and was told that her labs were abnormal and to come into the hospital. Past Medical history reviewed. REVIEW OF SYSTEMS Negative except for above HPI Review of Systems PAST MEDICAL HISTORY Past Medical History: Diagnosis Date Acquired lymphedema Allergic Anxiety Arthritis Asthma Candidiasis of vulva and vagina CKD (chronic kidney disease) Depression Dietary counseling and surveillance Hyperlipidemia Hyperparathyroidism (HCC) Hypertension Hypothyroidism Malaise and fatigue Morbid obesity (HCC) Muscle weakness Nevus, non-neoplastic Pain in limb Pure hypercholesterolemia RLS (restless legs syndrome) Type 2 diabetes mellitus (HCC) Varicella SURGICAL HISTORY Past Surgical History: Procedure Laterality Date APPENDECTOMY CHOLECYSTECTOMY 1979 COLONOSCOPY 06/19/2008 COLONOSCOPY W/ BIOPSIES AND POLYPECTOMY N/A 12/07/2022 Performed by Avery Marshall DO at [facility] ENDOSCOPY EYE SURGERY Bilateral early 90' LUNG REMOVAL, PARTIAL Left ROTATOR CUFF REPAIR Left TONSILLECTOMY CURRENT MEDICATIONS Current Discharge Medication List CONTINUE these medications which have NOT CHANGED Details albuterol 108 (90 Base) MCG/ACT inhaler Inhale 2 puffs every 6 hours as needed for wheezing. amLODIPine (Norvasc) 10 MG tablet Take 1 tablet (10 mg) by mouth daily. Qty: 90 tablet, Refills: 1 Associated Diagnoses: Primary hypertension amoxicillin-clavulanate (Augmentin) 875-125 MG tablet Take 1 tablet by mouth 2 times daily for 7 days. Qty: 14 tablet, Refills: 0 Associated Diagnoses: Acute cystitis with hematuria baclofen (Lioresal) 10 MG tablet Take 1 tablet (10 mg) by mouth daily. Qty: 30 tablet, Refills: 0 Associated Diagnoses: Chronic left shoulder pain ergocalciferol (Vitamin D-2) 1.25 MG (60566 UT) capsule Take 1 capsule (1.25 mg) by mouth 1 (one) time per week. Qty: 90 capsule, Refills: 1 Associated Diagnoses: Vitamin D deficiency Glucose Blood (Blood Glucose Test) strip 4 times daily. hydrOXYzine HCl (Atarax) 25 MG tablet Take 1 tablet (25 mg) by mouth every 8 hours as needed for anxiety. Qty: 90 tablet, Refills: 0 Associated Diagnoses: Moderate episode of recurrent major depressive disorder (HCC) insulin aspart (NovoLOG FLEXPEN) 100 UNIT/ML pen Inject 16 Units under the skin in the morning and 16 Units at noon and 16 Units in the evening and 16 Units before bedtime. Before meals.. Qty: 10 mL, Refills: 1 levothyroxine (Synthroid, Levoxyl) 150 MCG tablet Take 1 tablet (150 mcg) by mouth daily. Qty: 30 tablet, Refills: 1 Associated Diagnoses: Acquired hypothyroidism lisinopril 40 MG tablet Take 1 tablet (40 mg) by mouth daily. Qty: 90 tablet, Refills: 1 Associated Diagnoses: Primary hypertension meloxicam (Mobic) 7.5 MG tablet Take 1 tablet (7.5 mg) by mouth daily. Qty: 90 tablet, Refills: 1 Associated Diagnoses: Chronic left shoulder pain PARoxetine (Paxil) 20 MG tablet Take 1 tablet (20 mg) by mouth every morning. Qty: 90 tablet, Refills: 1 Associated Diagnoses: Moderate episode of recurrent major depressive disorder (HCC) potassium chloride CR (K-Tab) 20 MEQ ER tablet Take 20 mEq by mouth daily. Do not crush, chew, or split. pramipexole (Mirapex) 0.125 MG tablet Take 2 tablets (0.25 mg) by mouth Nightly. Qty: 60 tablet, Refills: 1 Associated Diagnoses: Restless legs syndrome (RLS) rosuvastatin (Crestor) 10 MG tablet Take 1 tablet (10 mg) by mouth daily. Qty: 90 tablet, Refills: 1 Associated Diagnoses: Hyperlipidemia with target LDL less than 70 zolpidem (Ambien) 10 MG tablet Take 1 tablet (10 mg) by mouth Nightly as needed for sleep. Do not start before December 22, 2022. Qty: 30 tablet, Refills: 0 Associated Diagnoses: Primary insomnia ALLERGIES Codeine, Other, Oxycodone, Oxycodone-aspirin, and Vancomycin FAMILY HISTORY Family History Problem Relation Name Age of Onset Mental illness Mother GHANSHYAM COLEY Depression Mother GHANSHYAM COLEY Heart disease Father LATHA COLEY High Blood Pressure Father LATHA COLEY Asthma Father LATHA COLEY Hypertension Father LATHA COLEY Diabetes Brother CATRACHO COLEY SOCIAL HISTORY Social History Socioeconomic History Marital status: Tobacco Use Smoking status: Never Smokeless tobacco: Never Vaping Use Vaping Use: Never used Substance and Sexual Activity Alcohol use: Yes Alcohol/week: 1.0 - 2.0 standard drink of alcohol Types: 1 - 2 Standard drinks or equivalent per week Comment: social; 1 mixed drink every 2 weeks Drug use: Never Sexual activity: Not Currently Partners: Male control/protection: None Comment: W/ UNTIL HIS ADMITTANCE TO SHELTER Social Determinants of Health Financial Resource Strain: High Risk (02/28/2023) Overall Financial Resource Strain (CARDIA) Difficulty of Paying Living Expenses: Hard Food Insecurity: No Food Insecurity (02/28/2023) Hunger Vital Sign Worried About Running Out of Food in the Last Year: Never true Ran Out of Food in the Last Year: Never true Transportation Needs: No Transportation Needs (02/28/2023) PRAPARE - Transportation Lack of Transportation (Medical): No Lack of Transportation (Non-Medical): No Physical Activity: Insufficiently Active (02/28/2023) Exercise Vital Sign Days of Exercise per Week: 2 days Minutes of Exercise per Session: 20 min Stress: No Stress Concern Present (02/28/2023) [employer] [place] [employer] - Occupational Stress Questionnaire Feeling of Stress : Only a little Social Connections: Unknown (02/28/2023) Social Connection and Isolation Panel [NHANES] Frequency of Communication with Friends and Family: Three times a week Frequency of Social Gatherings with Friends and Family: Three times a week Intimate Partner Violence: Not At Risk (02/28/2023) Humiliation, Afraid, Rape, and Kick questionnaire Fear of Current or Ex-Partner: No Emotionally Abused: No Physically Abused: No Sexually Abused: No Housing Stability: Low Risk (02/28/2023) Housing Stability Vital Sign Unable to Pay for Housing in the Last Year: No Number of Places Lived in the Last Year: 1 Unstable Housing in the Last Year: No SCREENINGS PHYSICAL EXAM (up to 7 for level 4, 8 or more for level 5) @EDTRIAGEVSS@ Physical Exam Vitals and nursing note reviewed. Constitutional: General: She is not in acute distress. Appearance: Normal appearance. HENT: Head: Normocephalic and atraumatic. Nose: Nose normal. Eyes: Conjunctiva/sclera: Conjunctivae normal. Cardiovascular: Rate and Rhythm: Normal rate. Pulmonary: Effort: Pulmonary effort is normal. No respiratory distress. Abdominal: General: Abdomen is flat. There is no distension. Tenderness: There is abdominal tenderness (Suprapubic). There is right CVA tenderness and left CVA tenderness. Skin: General: Skin is warm and dry. Capillary Refill: Capillary refill takes less than 2 seconds. Neurological: Mental Status: She is alert. Psychiatric: Behavior: Behavior normal. EMERGENCY DEPARTMENT COURSE and DIFFERENTIAL DIAGNOSIS/MDM: Vitals: Vitals: 03/01/23 0834 03/01/23 0834 03/01/23 0838 03/01/232030 BP: 138/57 (!) 159/54 BP Location: Right arm Right arm Patient Position: Lying Pulse: 78 78 80 75 Resp: 17 Temp: 36.6 C (97.8 F) 37.2 C (98.9 F) TempSrc: Temporal Temporal SpO2: 93% 93% 93% 95% Medications glucose oral gel 15 g (has no administration in time range) dextrose 50 % solution 12.5 g (has no administration in time range) albuterol 108 (90 Base) MCG/ACT inhaler 2 puff (has no administration in time range) amLODIPine (Norvasc) tablet 10 mg (10 mg Oral Given 03/01/232109) amoxicillin-clavulanate (Augmentin) 875-125 MG per tablet 1 tablet (1 tablet Oral Given 03/01/232109) baclofen (Lioresal) tablet 10 mg (10 mg Oral Given 03/01/232110) levothyroxine (Synthroid, Levoxyl) tablet 150 mcg (150 mcg Oral Given 03/01/23633) pramipexole (Mirapex) tablet 0.25 mg (0.25 mg Oral Given 03/01/232111) rosuvastatin (Crestor) tablet 10 mg (10 mg Oral Given 03/01/232109) glucagon (human recombinant) injection 1 mg (has no administration in time range) dextrose 5 % infusion (has no administration in time range) Insulin Lispro (Humalog) injection 0-12 Units ( SubCUTAneous Not Given 03/01/231699) acetaminophen (Tylenol) tablet 650 mg (650 mg Oral Given 03/01/23634) Or acetaminophen (Tylenol) suppository 650 mg ( Rectal See Alternative 03/01/23634) ondansetron ODT (Zofran-ODT) disintegrating tablet 4 mg (has no administration in time range) Or ondansetron (Zofran) injection 4 mg (has no administration in time range) polyethylene glycol (PEG) 3350 (Miralax) packet 17 g (has no administration in time range) Influenza Vac A&B SA Adj quadrivalent (Fluad) vaccine 0.5 mL (has no administration in time range) enoxaparin (Lovenox) syringe 40 mg (40 mg SubCUTAneous Given 03/01/23937) PARoxetine (Paxil) tablet 20 mg (has no administration in time range) busPIRone (Buspar) tablet 5 mg (has no administration in time range) cholecalciferol (Vitamin D3) tablet 1,000 Units (has no administration in time range) melatonin tablet 3 mg (3 mg Oral Given 03/01/232109) melatonin tablet 3 mg (has no administration in time range) insulin glargine (Lantus) injection 19 Units (19 Units SubCUTAneous Given 03/01/231847) Insulin Lispro (Humalog) injection 6 Units (6 Units SubCUTAneous Given 03/01/232110) chlorhexidine (Hibiclens) 4 % liquid (has no administration in time range) lactated ringers bolus 1,000 mL (0 mL IntraVENous Stopped 02/28/23 1458) insulin regular (HumuLIN R,NovoLIN R) injection 10 Units (10 Units SubCUTAneous Given 02/28/23 1358) Medical Decision Making ADDITIONAL MEDICAL DESICION MAKING IS DOCUMENTED IN THE ED COURSE. PLEASE REFER TO ED COURSE. Radha Sandoval is a 77 y.o. female with a past medical history of CKD, hypertension, hyperlipidemia, obesity, urinary tract infection, presenting at the behest of her family medicine team who is concerned for dehydration and mild hyponatremia as well as renal injury. Patient presents with suprapubic cramping and lower back pain that radiates up into her bilateral flanks. Symptom nausea but no vomiting and felt feverish and reported a fever at home but does not have one currently. To call from her family medicine team after seeing them in clinic yesterday and was told that her labs were abnormal and to come into the hospital. On physical exam: Suprapubic tenderness, bilateral CVA tenderness Differential diagnoses considered include: Nephritis, renal stone, LING, hyponatremia Plan: CBC, BMP, IV fluid resuscitation, urinalysis, CT abdomen pelvis Problems Addressed: LING (acute kidney injury) (CMS/HCC) ([facility]): complicated acute illness or injury Pyelonephritis: complicated acute illness or injury Amount and/or Complexity of Data Reviewed Labs: ordered. Decision-making details documented in ED Course. Radiology: ordered. Decision-making details documented in ED Course. Risk OTC drugs. Prescription drug management. Decision regarding hospitalization. . All independent interpretations of EKGs are documented in Ep[facility]any. ED Course as of 03/02/23 0025 MonFeb 28, 2023 1332 SODIUM(!): 130 [BJ] 1332 Creatinine(!): 1.22 [BJ] 1332 eGFR(!): 45.2 [BJ] 1332 GLUCOSE(!!): 483 [BJ] 1332 Auto WBC(!): 12.3 [BJ] 1332 HEMATOCRIT: 36.0 [BJ] 1332 HEMOGLOBIN(!): 11.5 [BJ] 1351 CT abdomen pelvis wo IV contrast Bili CT unremarkable. Patient does have urinary tract infection which she is being treated for, already had antibiotics today. We will admit for further IV antibiotics, blood sugar control and repeatsodium level. [BJ] 1456 Nitrite, Urine(!): Positive [BJ] ED Course User Index [BJ] Tasneem Whaley MD Diagnoses as of 03/02/235 Pyelonephritis LING (acute kidney injury) (CMS/HCC) ([facility]) CONSULTS: IP CONSULT TO ENDOCRINOLOGY IP CONSULT TO GERIATRICS IP CONSULT TO [facility] TO CONSULT INSOMNIA PROCEDURES: Unless otherwise noted below, none Procedures FINAL IMPRESSION 1. LING (acute kidney injury) ([facility]) ([facility]) 2. Pyelonephritis 3. Polypharmacy 4. Insomnia, unspecified type 5. Pressure ulcer of right buttock, stage 3 ([facility]) DISPOSITION/PLAN DISPOSITION Admit 02/28/2023 03:42:32 PM PATIENT REFERRED TO: [facility] Geriatrics [address] [facility] [address] DISCHARGE MEDICATIONS: Current Discharge Medication List @[facility]([id number]:LAST:1)@ (Please note: Portions of this note were completed with a voice recognition program. Efforts were made to edit the dictations but occasionally words and phrases are mis-transcribed.) Form [id number] Tasneem Whaley MD (electronically signed) Emergency Medicine Provider Tasneem Whaley MD 03/02/23 0025 [id number] Telephone encounter Note* Telephone Encounter - ELSA Arriaza CNP - 02/28/2023 8:30 AM EDT Noted. Patient already notified. See previous TE if needed. [facility] [id number] Miscellaneous Notes* Telephone Encounter - ELSA Arriaza CNP - 02/28/2023 8:30 AM EDT Noted. Patient already notified. See previous TE if needed. * Telephone Encounter - Imelda Mann RN - 02/28/2023 7:15 AM EDT S: Christine from [employer] [phone] spoke with [facility] nurse regarding critical lab results B: Glucose A: Blood was drawn yesterday. Glucose was 524, resulting this morning. Verified with repeat analysis. The lab work was ordered by Katia Granados CNP. R: Since office is open, called back line and spoke with Katia Schulz's nurse. Result given. No further instructions to the [facility] nurse. Reason for Disposition Lab or radiology calling with CRITICAL test results Protocols used: PCP Call - No [id number] documented in this [facility]SSelect [facility] [id number] Telephone encounter Note* Telephone Encounter - Imelda Mann RN - 02/28/2023 7:15 AM EDT S: Christien from [employer] [phone] spoke with [facility] nurse regarding critical lab results B: Glucose A: Blood was drawn yesterday. Glucose was 524, resulting this morning. Verified with repeat analysis. The lab work was ordered by Katia Granados CNP. R: Since office is open, called back line and spoke with Katia Schulz's nurse. Result given. No further instructions to the [facility] nurse. Reason for Disposition Lab or radiology calling with CRITICAL test results Protocols used: PCP Call - No [id number] [facility] [id number] Evaluation + Plan note* Assessment & Plan Note - ELSA Arriaza CNP - 02/27/2023 5:18 PM EDTAssociated Problem(s): Diarrhea No fever or chills, abdomen soft. Unknown etiology. Will check CBC and CMP. Consider stool culture if symptoms continue [facility] [id number] Miscellaneous Notes* Assessment & Plan Note - ELSA Arriaza CNP - 02/27/2023 5:18 PM EDTAssociated Problem(s): Diarrhea No fever or chills, abdomen soft. Unknown etiology. Will check CBC and CMP. Consider stool culture if symptoms continue * Assessment & Plan Note - ELSA Arriaza CNP - 02/27/2023 5:17 PM EDTAssociated Problem(s): Chronic renal insufficiency, stage III (moderate) (HCC) We will check CMP today * Assessment & Plan Note - ELSA Arriaza CNP - 02/27/2023 5:17 PM EDTAssociated Problem(s): Acute cystitis with hematuria UA positive nitrites and leuks moderate blood, will start antibiotic therapy sent for culture * Assessment & Plan Note - ELSA Arriaza CNP - 02/27/2023 5:17 PM EDTAssociated Problem(s): Hypertension Controlled. 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 Patient having difficulties with compliance. Continue insulin regimen. Possible increased glucose due to urinary tract infection we will treat documented in this [facility]09-11-2023 Evaluation + Plan note* Assessment & Plan Note - ELSA Arriaza CNP - 02/27/2023 5:17 PM EDTAssociated Problem(s): Chronic renal insufficiency, stage III (moderate) ([facility]) We will check CMP today [facility] [id number] Evaluation + Plan note* Assessment & Plan Note - ELSA Arriaza CNP - 02/27/2023 5:17 PM EDTAssociated Problem(s): Acute cystitis with hematuria UA positive nitrites and leuks moderate blood, will start antibiotic therapy sent for culture [facility] [id number] Evaluation + Plan note* Assessment & Plan Note - ELSA Arriaza CNP - 02/27/2023 5:17 PM EDTAssociated Problem(s): Hypertension Controlled. Continue amlodipine 10 mg daily and lisinopril 40 mg daily [facility] [id number] Evaluation + Plan note* Assessment & Plan Note - ELSA Arriaza CNP - 02/27/2023 5:16 PM EDTAssociated Problem(s): Hypothyroidism Will check TSH today due to recent fatigue [facility] [id number] Evaluation + Plan note* Assessment & Plan Note - ELSA Arriaza CNP - 02/27/2023 5:15 PM EDTAssociated Problem(s): Wound of right buttock Patient has not followed up with wound center upon visualization today wound unchanged, advised to keep area as clean as possible with frequent changes of incontinence pads [facility] [id number] Evaluation + Plan note* Assessment & Plan Note - ELSA Arriaza CNP - 02/27/2023 5:14 PM EDTAssociated Problem(s): 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 Patient having difficulties with compliance. Continue insulin regimen. Possible increased glucose due to urinary tract infection we will treat [facility] [id number] History of Present illness Narrative* Magda Lomas - 02/27/2023 2:20 PM EDT Patient was identified by name and Date of . POCT glucose at 494-provider notified. * ELSA Arriaza CNP - 02/27/2023 2:20 PM EDT Images from the original note were not included. 02/27/2023 Radha Sandoval (: 1945) is a 77 y.o. female , Established patient, here for evaluation of the following chief complaint(s): Blood Sugar Problem, Knee Pain, Diarrhea (/), and Back Pain ASSESSMENT/PLAN: 1. 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 Patient having difficulties with compliance. Continue insulin regimen. Possible increased glucose due to urinary tract infection we will treat Orders: - POCT glucose manually resulted - POCT urinalysis dipstick manually resulted - Comprehensive metabolic panel - Magnesium 2. Urinary tract infection symptoms - Urine culture (clean catch) 3. Primary hypertension Assessment & Plan: Controlled. Continue amlodipine 10 mg daily and lisinopril 40 mg daily Orders: - Comprehensive metabolic panel 4. Hypokalemia - Comprehensive metabolic panel - Magnesium 5. Acquired hypothyroidism Assessment & Plan: Will check TSH today due to recent fatigue Orders: - TSH 6. History of GI bleed - CBC auto differential 7. Acute cystitis with hematuria Assessment & Plan: UA positive nitrites and leuks moderate blood, will start antibiotic therapy sent for culture Orders: - amoxicillin-clavulanate (Augmentin) 875-125 MG tablet; Take 1 tablet by mouth 2 times daily for 7days., Starting Mon02/27/2023, Until Mon03/06/2023, Normal 8. Wound of right buttock, subsequent encounter Assessment & Plan: Patient has not followed up with wound center upon visualization today wound unchanged, advised to keep area as clean as possible with frequent changes of incontinence pads 9. Chronic renal impairment, stage 3b (HCC) Assessment & Plan: We will check CMP today 10. Diarrhea, unspecified type Assessment & Plan: No fever or chills, abdomen soft. Unknown etiology. Will check CBC and CMP. Consider stool culture if symptoms continue VS stable. No acute distress. Follow up for as directed pending test results. SUBJECTIVE/OBJECTIVE: HPI - Radha Sandoval (: 1945) is a 77 y.o. female , Established patient, here for the evaluation of the following chief complaint(s): Blood Sugar Problem, Knee Pain, Diarrhea (/), and Back Pain Patient arrived 20 minutes late for her appointment today. Previously missed 2 appointments last week and this morning. Reports that she has been very sleepy and has missed her appointments due to fatigue. She is concerned that she has a urinary tract infection as she is urinating a lot. Also states that her Glucose readings have been high. Takes insulin 6 am, 1200, 6 pm, and midnight. Novolog 16 units. Forgot at 1200 today. States she usually forgets at least 1 dose a day. States she remembering her morning insulin dosing. Loose stools for a couple weeks now. No associated fever or chills, no abdominal pain. Has not checked her blood sugar today, noted In office [id number] testing 494. Urination Increased frequency, dysuria intermittently. No fever, or chills. No chest pain or shortness of breath. Low back pain. No new incontinence. States she was late today due to having to go to the bank because her banking accounts got hacked so she had to Freeze the accounts (reports that her accts were messed up) and does not have a way to pay for her insulin. Will run out soon. Has Maximino (son) work in [employer]. He may be able to help her out. Prior to Admission medications Medication Sig Start Date End Date Taking? Authorizing Provider albuterol 108 (90 Base) MCG/ACT inhaler Inhale 2 puffs every 6 hours as needed for wheezing. Yes Historical Provider, amLODIPine (Norvasc) 10 MG tablet Take 1 tablet (10 mg) by mouth daily. 12/08/22 Yes ELSA Arriaza CNP baclofen (Lioresal) 10 MG tablet Take 1 tablet (10 mg) by mouth daily. 02/14/23 Yes Shiv Lopez MD ergocalciferol (Vitamin D-2) 1.25 MG (09905 UT) capsule Take 1 capsule (1.25 mg) by mouth 1 (one) time per week. 01/13/23 Yes ELSA Arriaza CNP Glucose Blood (Blood Glucose Test) strip 4 times daily. 01/10/22 Yes Historical Provider, insulin aspart (NovoLOG FLEXPEN) 100 UNIT/ML pen Inject 16 Units under the skin in the morning and 16 Units at noon and 16 Units in the evening and 16 Units before bedtime. Before meals.. 02/27/23 YesShiv Lopez MD levothyroxine (Synthroid, Levoxyl) 150 MCG tablet Take 1 tablet (150 mcg) by mouth daily. 01/13/23 04/13/23 Yes Katia Rosaline, SOCIAL STAFF WORKER - [employer] lisinopril 40 MG tablet Take 1 tablet (40 mg) by mouth daily. 12/08/22 Yes Katia Ronnyal, SOCIAL STAFF WORKER - [employer] meloxicam (Mobic) 7.5 MG tablet Take 1 tablet (7.5 mg) by mouth daily. 02/07/23 Yes Katia PITO GranadosN - [employer] PARoxetine (Paxil) 20 MG tablet Take 1 tablet (20 mg) by mouth every morning. 12/08/22 Yes Katia Rosaline, SOCIAL STAFF WORKER - [employer] potassium chloride CR (K-Tab) 20 MEQ ER tablet Take 20 mEq by mouth daily. Do not crush, chew, or split. Yes Historical Provider, pramipexole (Mirapex) 0.125 MG tablet Take 2 tablets (0.25 mg) by mouth Nightly. 01/13/23 03/14/23 Yes Katia Rosaline, SOCIAL STAFF WORKER - [employer] rosuvastatin (Crestor) 10 MG tablet Take 1 tablet (10 mg) by mouth daily. 12/08/22 Yes Katia Rosaline, SOCIAL STAFF WORKER - [employer] hydrOXYzine HCl (Atarax) 25 MG tablet Take 1 tablet (25 mg) by mouth every 8 hours as needed for anxiety. 12/08/22 02/07/23 Katia Rosaline, SOCIAL STAFF WORKER - [employer] zolpidem (Ambien) 10 MG tablet Take 1 tablet (10 mg) by mouth Nightly as needed for sleep. Do not start before December 22, 2022. 12/22/22 02/07/23 Katia Rosaline, SOCIAL STAFF WORKER - JORGE insulin aspart (NovoLOG FLEXPEN) 100 UNIT/ML pen Inject 16 Units under the skin. Before meals. 06/24/21 02/27/23 Historical Provider, Review of Systems Constitutional: Positive for fatigue. Negative for activity change, chills and fever. HENT: Negative. Respiratory: Negative for cough, chest tightness and shortness of breath. Cardiovascular: Positive for leg swelling (not new- reports about the same). Negative for chest pain and palpitations. Gastrointestinal: Positive for diarrhea. Negative for abdominal pain, blood in stool, constipation,nausea and vomiting. Genitourinary: Positive for dysuria and frequency. Negative for difficulty urinating and hematuria. Musculoskeletal: Positive for arthralgias (knee pain) and back pain. Skin: Positive for wound (buttock). Neurological: Negative for dizziness, syncope, weakness, light-headedness and headaches. Psychiatric/Behavioral: Negative. Vitals: 02/27/23 1444 BP: 136/72 Pulse: 93 Resp: 20 Temp: 37.3 C (99.1 F) TempSrc: Oral SpO2: 92% Weight: 234 lb (106 kg) Physical Exam Constitutional: General: She is not in acute distress. Appearance: Normal appearance. She is obese. She is ill-appearing (mild). HENT: Head: Normocephalic and atraumatic. Right Ear: Tympanic membrane normal. Left Ear: Tympanic membrane normal. Nose: No congestion or rhinorrhea. Mouth/Throat: Mouth: Mucous membranes are moist. Pharynx: Oropharynx is clear. No oropharyngeal exudate or posterior oropharyngeal erythema. Eyes: Conjunctiva/sclera: Conjunctivae normal. Cardiovascular: Rate and Rhythm: Normal rate and regular rhythm. Pulses: Normal pulses. Heart sounds: Normal heart sounds. Pulmonary: Effort: Pulmonary effort is normal. Breath sounds: Normal breath sounds. Abdominal: General: Abdomen is flat. Bowel sounds are normal. There is no distension. Palpations: Abdomen is soft. There is no mass. Tenderness: There is no abdominal tenderness. There is no right CVA tenderness, left CVA tendernessor rebound. Musculoskeletal: Right lower leg: Edema present. Left lower leg: Edema present. Comments: Wearing compression stockings bilaterally, noted chronic skin changes bilateral lower extremities mid seals down, no open areas. Lymphadenopathy: Cervical: No cervical adenopathy. Skin: General: Skin is warm and dry. Neurological: Mental Status: She is alert and oriented to person, place, and time. Psychiatric: Mood and Affect: Mood normal. Behavior: Behavior normal. An electronic signature was used to authenticate this note. ELSA Arriaza CNP 02/27/2023 5:19 PM documented in this [facility]09-11-2023 Evaluation note* Diagnosis 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, with long-term current use of insulin, unspecified whether stage 3a or 3b CKD (HCC)- Primary Urinary tract infection symptoms Primary hypertension Unspecified essential hypertension Hypokalemia Hypopotassemia Acquired hypothyroidism Unspecified hypothyroidism History of GI bleed Acute cystitis with hematuria Wound of right buttock, subsequent encounter Chronic renal impairment, stage 3b (HCC) Diarrhea, unspecified type documented in this encounter [facility] [id number] Telephone encounter Note* Telephone Encounter - Nan Bush RN - 02/23/2023 12:49 PM EDT S: Patient spoke with [facility] nurse regarding High Blood Sugar number possible UTI. B: Onset of symptoms/concern x 2 days. A: Pt reports has been having issues with high BS. Pt reports for the past two days BS have been elevated over the past two days. Pt reports wears a diaper and today had an episode of incontinence. Pt denies dysuria, lower abd pain or fever. Endorses lower back pain. Pt reports last blood sugar 375approx. 1 hr ago. Pt felt as could have a vaginal infection, however, denies any vaginal symptoms or discharge. R: Office backline called and spoke to Jackie Granados for second level triage. She advises is ok to wait till appointment tomorrow to be seen. Pt was then called back and advised. Patient understands care advice. No further needs at this time. Patient instructed to call back with new or worsening symptoms. Reason for Disposition Patient wants to be seen Protocols used: Diabetes - High Blood [id number] [facility] [id number] Miscellaneous Notes* Telephone Encounter - Nan Bush RN - 02/23/2023 12:49 PM EDT S: Patient spoke with [facility] nurse regarding High Blood Sugar number possible UTI. B: Onset of symptoms/concern x 2 days. A: Pt reports has been having issues with high BS. Pt reports for the past two days BS have been elevated over the past two days. Pt reports wears a diaper and today had an episode of incontinence. Pt denies dysuria, lower abd pain or fever. Endorses lower back pain. Pt reports last blood sugar 375approx. 1 hr ago. Pt felt as could have a vaginal infection, however, denies any vaginal symptoms or discharge. R: Office backline called and spoke to Jackie Granados for second level triage. She advises is ok to wait till appointment tomorrow to be seen. Pt was then called back and advised. Patient understands care advice. No further needs at this time. Patient instructed to call back with new or worsening symptoms. Reason for Disposition Patient wants to be seen Protocols used: Diabetes - High Blood Wzens-[id number] documented in this [facility]08-30-2023 Hospital Discharge instructions* Patient Instructions* Tejal Henry RN - 02/15/2023 12:45 PM EDT Return in [address] Mgaallanes If you have any questions or concerns, please call our wound center at [phone] or [phone]. Offloading Try to avoid pressure and sheering to wound area as much as possible. Can use padding or a type of waffle cushion when sitting. Try to reposition every 2 hours. Activity as tolerated. Cleansing Shower as normal. Do not soak area. Shower or sponge bathe, but cleanse wound separately with antibacterial soap and water, pat dry, apply new dressing. Wound Dressing: Daily or every other day Xeroform cut smaller piece to fit wound Bordered foam dressing Try to increase protein as diet tolerates, to help improve healing. documented in this [facility]08-30-2023 NoteWound Care Visit - New Patient Progress Note CHIEF COMPLAINT and HISTORY OF PRESENT ILLNESS: The patient is a 77 y.o. female with R buttock pressure wound. Past Medical History: Past Medical History: Diagnosis Date Acquired lymphedema Allergic Anxiety Arthritis Asthma Candidiasis of vulva and vagina CKD (chronic kidney disease) Depression Dietary counseling and surveillance Hyperlipidemia Hyperparathyroidism (HCC) Hypertension Hypothyroidism Malaise and fatigue Morbid obesity (HCC) Muscle weakness Nevus, non-neoplastic Pain in limb Pure hypercholesterolemia RLS (restless legs syndrome) Type 2 diabetes mellitus (HCC) Varicella Past Surgical History: Past Surgical History: Procedure Laterality Date APPENDECTOMY CHOLECYSTECTOMY 1979 COLONOSCOPY 06/19/2008 COLONOSCOPY W/ BIOPSIES AND POLYPECTOMY N/A 12/07/2022 Performed by Avery Marshall DO at [facility] ENDOSCOPY EYE SURGERY Bilateral early 90 LUNG REMOVAL, PARTIAL Left ROTATOR CUFF REPAIR Left TONSILLECTOMY Current Medications: Current Outpatient Medications: albuterol 108 (90 Base) MCG/ACT inhaler, Inhale 2 puffs every 6 hours as needed for wheezing., Disp: , Rfl: amLODIPine (Norvasc) 10 MG tablet, Take 1 tablet (10 mg) by mouth daily., Disp: 90 tablet, Rfl: 1 baclofen (Lioresal) 10 MG tablet, Take 1 tablet (10 mg) by mouth daily., Disp: 30 tablet, Rfl: 0 ergocalciferol (Vitamin D-2) 1.25 MG (66207 UT) capsule, Take 1 capsule (1.25 mg) by mouth 1 (one) time per week., Disp: 90 capsule, Rfl: 1 Glucose Blood (Blood Glucose Test) strip, 4 times daily., Disp: , Rfl: insulin aspart (NovoLOG FLEXPEN) 100 UNIT/ML pen, Inject 16 Units under the skin. Before meals., Disp: , Rfl: levothyroxine (Synthroid, Levoxyl) 150 MCG tablet, Take 1 tablet (150 mcg) by mouth daily., Disp: 30 tablet, Rfl: 1 lisinopril 40 MG tablet, Take 1 tablet (40 mg) by mouth daily., Disp: 90 tablet, Rfl: 1 meloxicam (Mobic) 7.5 MG tablet, Take 1 tablet (7.5 mg) by mouth daily., Disp: 90 tablet, Rfl: 1 PARoxetine (Paxil) 20 MG tablet, Take 1 tablet (20 mg) by mouth every morning., Disp: 90 tablet, Rfl: 1 potassium chloride CR (K-Tab) 20 MEQ ER tablet, Take 20 mEq by mouth daily. Do not crush, chew, or split., Disp: , Rfl: pramipexole (Mirapex) 0.125 MG tablet, Take 2 tablets (0.25 mg) by mouth Nightly., Disp: 60 tablet, Rfl: 1 rosuvastatin (Crestor) 10 MG tablet, Take 1 tablet (10 mg) by mouth daily., Disp: 90 tablet, Rfl: 1 hydrOXYzine HCl (Atarax) 25 MG tablet, Take 1 tablet (25 mg) by mouth every 8 hours as needed for anxiety., Disp: 90 tablet, Rfl: 0 zolpidem (Ambien) 10 MG tablet, Take 1 tablet (10 mg) by mouth Nightly as needed for sleep. Do not start before December 22, 2022., Disp: 30 tablet, Rfl: 0 Allergies: Allergies Allergen Reactions Codeine Itching Other Percodan Oxycodone Hives Oxycodone-Aspirin Vancomycin Other reaction(s): U Social History: Social History Socioeconomic History Marital status: Spouse name: Not on file Number of children: Not on file Years of education: Not on file Highest education level: Not on file Occupational History Not on file Tobacco Use Smoking status: Never Smokeless tobacco: Never Vaping Use Vaping Use: Never used Substance and Sexual Activity Alcohol use: Yes Alcohol/week: 1.0 - 2.0 standard drink of alcohol Types: 1 - 2 Standard drinks or equivalent per week Comment: social; 1 mixed drink every 2 weeks Drug use: Never Sexual activity: Not Currently Partners: Male control/protection: None Comment: W/ UNTIL HIS ADMITTANCE TO SHELTER Other Topics Concern Not on file Social History Narrative Not on file Social Determinants of Health Financial Resource Strain: High Risk (04/26/2022) Overall Financial Resource Strain (CARDIA) Difficulty of Paying Living Expenses: Hard Food Insecurity: No Food Insecurity (04/26/2022) Hunger Vital Sign Worried About Running Out of Food in the Last Year: Never true Ran Out of Food in the Last Year: Never true Transportation Needs: No Transportation Needs (12/06/2022) PRAPARE - Transportation Lack of Transportation (Medical): No Lack of Transportation (Non-Medical): No Physical Activity: Not on file Stress: Not on file Social Connections: Not on file Intimate Partner Violence: Not At Risk (12/06/2022) Humiliation, Afraid, Rape, and Kick questionnaire Fear of Current or Ex-Partner: No Emotionally Abused: No Physically Abused: No Sexually Abused: No Housing Stability: Low Risk (12/06/2022) Housing Stability Vital Sign Unable to Pay for Housing in the Last Year: No Number of Places Lived in the Last Year: 1 Unstable Housing in the Last Year: No Family History: Family History Problem Relation Name Age of Onset Mental illness Mother GHANSHYAM COLEY Depression Mother GHANSHYAM COLEY Heart disease Father LATHA COLEY High Blood Pressure Father LATHA (more content not included)...[facility]08-22-2023 Evaluation + Plan note* Assessment & Plan Note - ELSA Arriaza CNP - 02/07/2023 12:51 PM EDTAssociated Problem(s): Chronic left shoulder pain Chronic. Refill mobic. [id number] Evaluation + Plan note* Assessment & Plan Note - ELSA Arriaza CNP - 02/07/2023 12:51 PM EDTAssociated Problem(s): Wound of right buttock Avoid pressure to area, avoid friction, keep area as dry as possible. Refer to wound clinic. [facility] [id number] Miscellaneous Notes* Assessment & Plan Note - ELSA Arriaza CNP - 02/07/2023 12:51 PM EDTAssociated Problem(s): Chronic left shoulder pain Chronic. Refill mobic. * Assessment & Plan Note - ELSA Arriaza CNP - 02/07/2023 12:51 PM EDTAssociated Problem(s): Wound of right buttock Avoid pressure to area, avoid friction, keep area as dry as possible. Refer to wound clinic. documented in this [facility]08-22-2023 History of Present illness Narrative* ELSA Arriaza CNP - 02/07/2023 10:40 AM EDT Images from the original note were not included. 02/07/2023 Radha Sandoval (: 1945) is a 77 y.o. female , Established patient, here for evaluation of the following chief complaint(s): Sore (On buttocks-getting worse) ASSESSMENT/PLAN: 1. Wound of right buttock, subsequent encounter Assessment & Plan: Avoid pressure to area, avoid friction, keep area as dry as possible. Refer to wound clinic. Orders: - [facility] 2. Chronic left shoulder pain Assessment & Plan: Chronic. Refill mobic. Orders: - meloxicam (Mobic) 7.5 MG tablet; Take 1 tablet (7.5 mg) by mouth daily., Starting Mon02/07/2023, Normal Follow up for with primary care provider as scheduled. SUBJECTIVE/OBJECTIVE: HPI - Radha Sandoval (: 1945) is a 77 y.o. female , Established patient, here for the evaluation of the following chief complaint(s): Sore (On buttocks-getting worse) Reports worsening buttock wound, first noticed in 09/2022, was getting better at that time, was putting vaseline on it, using donut cushion to avoid pressure. Wears incontinence pads, states that she noticed it has been bleeding a little and has had increasing discomfort when sitting over the past month. No fever or chills. Prior to Admission medications Medication Sig Start Date End Date Taking? Authorizing Provider amLODIPine (Norvasc) 10 MG tablet Take 1 tablet (10 mg) by mouth daily. 12/08/22 Katia Bridenthal,SOCIAL STAFF WORKER - PANTOGRAPH I ENGRAVER baclofen (Lioresal) 10 MG tablet Take 1 tablet (10 mg) by mouth daily. 01/13/23 Katia Bridenthal, SOCIAL STAFF WORKER - PANTOGRAPH I ENGRAVER ergocalciferol (Vitamin D-2) 1.25 MG (82894 UT) capsule Take 1 capsule (1.25 mg) by mouth 1 (one) time per week. 01/13/23 Katia Gregenthal, SOCIAL STAFF WORKER - PANTOGRAPH I ENGRAVER Glucose Blood (Blood Glucose Test) strip Test blood sugar 3 times a day.PLEASE FILL FOR TRUE METRIXTEST STRIPS 01/10/22 Historical Provider, hydrOXYzine HCl (Atarax) 25 MG tablet Take 1 tablet (25 mg) by mouth every 8 hours as needed for anxiety. 12/08/22 01/07/23 ELSA Arriaza CNP insulin aspart (NovoLOG FLEXPEN) 100 UNIT/ML pen Inject 16 Units under the skin. Before meals. 06/24/21 Historical Provider, levothyroxine (Synthroid, Levoxyl) 150 MCG tablet Take 1 tablet (150 mcg) by mouth daily. 01/13/23 04/13/23 ELSA Arriaza CNP lisinopril 40 MG tablet Take 1 tablet (40 mg) by mouth daily. 12/08/22 ELSA Arriaza CNP PARoxetine (Paxil) 20 MG tablet Take 1 tablet (20 mg) by mouth every morning. 12/08/22 ELSA Arriaza CNP pramipexole (Mirapex) 0.125 MG tablet Take 2 tablets (0.25 mg) by mouth Nightly. 01/13/23 03/14/23 ELSA Arriaza CNP rosuvastatin (Crestor) 10 MG tablet Take 1 tablet (10 mg) by mouth daily. 12/08/22 ELSA Arriaza CNP senna-docusate sodium (Senokot-S) 8.6-50 MG tablet Take 1 tablet by mouth daily. 12/13/22 02/11/23 ELSA Arriaza CNP zolpidem (Ambien) 10 MG tablet Take 1 tablet (10 mg) by mouth Nightly as needed for sleep. Do not start before December 22, 2022. 12/22/22 01/21/23 ELSA Arriaza CNP Review of Systems Constitutional: Negative for activity change, appetite change, chills, fatigue and fever. Respiratory: Negative. Cardiovascular: Positive for leg swelling (chronic- reports better than usual. wearing compression stockings on today). Negative for chest pain and palpitations. Genitourinary: Negative for difficulty urinating (has some incontinence, not new). Musculoskeletal: Positive for arthralgias. Negative for joint swelling. Skin: Positive for wound. Vitals: 02/07/23 1039 02/07/23 1118 BP: (!) 158/80 (!) 146/72 Pulse: 88 Resp: 20 Temp: 36.3 C (97.3 F) TempSrc: Infrared SpO2: 96% Weight: 242 lb 6.4 oz (110 kg) Physical Exam Constitutional: General: She is not in acute distress. Appearance: Normal appearance. She is obese. She is not ill-appearing. Cardiovascular: Rate and Rhythm: Normal rate and regular rhythm. Pulses: Normal pulses. Heart sounds: Normal heart sounds. Pulmonary: Effort: Pulmonary effort is normal. Breath sounds: Normal breath sounds. Skin: General: Skin is warm and dry. Findings: Lesion present. Neurological: Mental Status: She is alert and oriented to person, place, and time. An electronic signature was used to authenticate this note. ELSA Arriaza CNP 02/07/2023 12:53 PM * Magda Lomas - 02/07/2023 10:40 AM EDT Patient was identified by name and Date of . PHARMACY [facility]IF[facility] WITH [facility] [place]. documented in this encounterSSelect [facility] HospitalCvcapl85-13-0958 Telephone encounter Note* Telephone Encounter - Betty Gonzalez MA - 01/25/2023 3:01 PM EDT Patient notified. [id number] Miscellaneous Notes* Telephone Encounter - Betty Gonzalez MA - 01/25/2023 3:01 PM EDT Patient notified. * Telephone Encounter - Shiv Lopez MD - 01/25/2023 2:39 PM EDT If the muscle spasms got worse with the muscle relaxer stop the muscle relaxer, I am not sure what else we can do especially if they have been going on for years. We could try quinine. * Telephone Encounter - Colette Poole RN - 01/25/2023 1:23 PM EDT S: The patient is calling the [facility] About muscle spasms B: She has been seen and is taking Baclofen for about 2 weeks. A: She thinks the spasms are worse with the medication. They are in the legs and this makes her mobility worse than usual. She continues to take the Mirapex as well. These symptoms have not changed except that they are worse. They have been chronic for many years. R: Please advise as they seem worse with the addition of Baclofen. Can this medication be increasedor is there another medication that would be more effective. Verified allergies and pharmacy. Reason for Disposition MODERATE pain (e.g., interferes with normal activities) and present > 3 days Protocols used: Muscle Aches and Body [id number] documented in this encounterSSelect Medical Ohio[facility] Rehabilitation [id number] Telephone encounter Note* Telephone Encounter - Shiv Lopez MD - 01/25/2023 2:39 PM EDT If the muscle spasms got worse with the muscle relaxer stop the muscle relaxer, I am not sure what else we can do especially if they have been going on for years. We could try quinine. [facility] [id number] Telephone encounter Note* Telephone Encounter - Colette Poole RN - 01/25/2023 1:23 PM EDT S: The patient is calling the [facility] About muscle spasms B: She has been seen and is taking Baclofen for about 2 weeks. A: She thinks the spasms are worse with the medication. They are in the legs and this makes her mobility worse than usual. She continues to take the Mirapex as well. These symptoms have not changed except that they are worse. They have been chronic for many years. R: Please advise as they seem worse with the addition of Baclofen. Can this medication be increasedor is there another medication that would be more effective. Verified allergies and pharmacy. Reason for Disposition MODERATE pain (e.g., interferes with normal activities) and present > 3 days Protocols used: Muscle Aches and Body [id number] [facility] [id number] Telephone encounter Note* Telephone Encounter - ELSA Arriaza CNP - 01/13/2023 11:12 AM EDT Reviewed chart. Refill appropriate. RX sent. [facility] SystemGjuoxr84-54-0961 Miscellaneous Notes* Telephone Encounter - ELSA Arriaza CNP - 01/13/2023 11:12 AM EDT Reviewed chart. Refill appropriate. RX sent. * Telephone Encounter - Mya Foster MA - 01/13/2023 8:52 AM EDT Prescription Request: Last medication check: 10/25/2022 Last physical exam: 04/26/2022 Last completed appointment: 12/13/22 Next scheduled appointment: 01/25/2023 Last date of refill on this medication: Mirapex 12/13/22, baclofen and synthroid 12/08/22, vit D 07/18/2022 documented in this encounterSSelect Medical [facility] Rehabilitation [id number] Telephone encounter Note* Telephone Encounter - Mya Foster MA - 01/13/2023 8:52 AM EDT Prescription Request: Last medication check: 10/25/2022 Last physical exam: 04/26/2022 Last completed appointment: 12/13/22 Next scheduled appointment: 01/25/2023 Last date of refill on this medication: Mirapex 12/13/22, baclofen and synthroid 12/08/22, vit D 07/18/2022 [facility] [id number] Telephone encounter Note* Telephone Encounter - ELSA Arriaza CNP - 12/08/2022 5:20 PM EDT Reviewed chart. Refill appropriate. RX sent. [facility] SystemNhjrgy24-34-4488 Miscellaneous Notes* Telephone Encounter - ELSA Arriaza CNP - 12/08/2022 5:20 PM EDT Reviewed chart. Refill appropriate. RX sent. * Telephone Encounter - Syl Kumar MA - 12/08/2022 1:53 PM EDT Prescription Request: Last medication check: 10/25/22 Last physical exam: 04/26/22 Next scheduled appointment: 01/25/23 CSA on file (date): 02/02/22 Last urine drug screen: none Last date of refill on this medication Baclofen 10/04/22 30 tablets no refill Levothyroxine 10/04/22 30 day 1 refill Crestor 06/14/22 90 day 1 refill documented in this encounterSSelect Medical [facility] Rehabilitation HospitalXtxvsn65-50-0875 Telephone encounter Note* Telephone Encounter - Syl Kumar MA - 12/08/2022 1:53 PM EDT Prescription Request: Last medication check: 10/25/22 Last physical exam: 04/26/22 Next scheduled appointment: 01/25/23 CSA on file (date): 02/02/22 Last urine drug screen: none Last date of refill on this medication Baclofen 10/04/22 30 tablets no refill Levothyroxine 10/04/22 30 day 1 refill Crestor 06/14/22 90 day 1 refill [facility] [id number] Plan of care note* Care Plan - Lambert Kaur RN - 12/07/2022 2:51 PM EDT Problem: Knowledge Deficit Goal: Patient/family/caregiver demonstrates understanding of disease process, treatment plan, medications, and discharge instructions Outcome: Completed Problem: Potential for Compromised Skin Integrity Goal: Skin Integrity is Maintained or Improved Outcome: Completed Goal: Nutritional status is improving Outcome: Completed Problem: Urinary Incontinence Goal: Perineal skin integrity is maintained or improved Outcome: Completed [facility] [id number] Miscellaneous Notes* Care Plan - Lambert Kaur RN - 12/07/2022 2:51 PM EDT Problem: Knowledge Deficit Goal: Patient/family/caregiver demonstrates understanding of disease process, treatment plan, medications, and discharge instructions Outcome: Completed Problem: Potential for Compromised Skin Integrity Goal: Skin Integrity is Maintained or Improved Outcome: Completed Goal: Nutritional status is improving Outcome: Completed Problem: Urinary Incontinence Goal: Perineal skin integrity is maintained or improved Outcome: Completed * Care Coordination - Laura Jackson RN - 12/07/2022 11:51 AM EDT Images from the original note were not included. Care Management Progress Note Pt remains on 1E, had colonoscopy today, diverticulosis noted, polyp removed and biopsy cx sent. Hgb 10.4 this AM. On regular diet and IVF. Pt is from home alone, will return once medically stable. TCC to assist and follow as needed. Discharge Milestones and Delays Expected Date/Time: 12/08/[address] discharge order Complete med reconciliation Case mgmt discharge readiness Clinical Stability Diagnsotic Workup Expected Discharge History Expected Date/Time Set By Reviewed At 12/08/2022 Laura Jackson RN 12/07/2022 7:39 AM cscope today 12/08/2022 Laura Jackson RN 12/06/2022 8:22 AM 12/08/2022 ANASTASIA Molina 12/06/2022 12:49 AM 12/08/2022 ANASTASIA Molina 12/05/2022 4:29 PM Length of Stay (Days): 2 GMLOS: No GMLOS Documented * Perioperative Nursing Note - Ashley Dickens RN - 12/07/2022 9:57 AM EDT POST ENDOSCOPY PROCEDURE TRANSFER REPORT Physician: Dr. Marshall Procedure completed: colonoscopy Specimens obtained: Yes Medications administered: See MAR Findings: see MD report Complications: none Please call the Main Endoscopy Dept at [phone] for questions. * Op Note - Avery Marshall DO - 12/07/2022 7:48 AM EDT [facility] Name: Radha Sandoval Procedure Date: 12/07/2022 7:48 AM Gender: Female Date of : 1945 Age: 77 Admit Type: Inpatient Note Status: Finalized Endoscopist: Avery Marshall DO, [id number] Procedure: Colonoscopy Indications: Hematochezia Findings: The perianal and digital rectal examinations were normal. Pertinent negatives include normal sphincter tone and no palpable rectal lesions. Multiple small and large-mouthed diverticula were found in the sigmoid colon, descending colon and ascending colon. There was no evidence of diverticular bleeding. A 15 mm polyp was found in the proximal ascending colon. The polyp was multi-lobulated and sessile. The polyp was removed with a piecemeal technique using a cold snare in two pieces. Resection and retrieval were complete. Non-bleeding internal hemorrhoids were found during retroflexion. The hemorrhoids were medium-sized. Impression: - Moderate diverticulosis in the sigmoid colon, in the descending colon and in the ascending colon. There was no evidence of diverticular bleeding. - One 15 mm polyp in the proximal ascending colon, removed piecemeal using a cold snare. Resected and retrieved. - Non-bleeding internal hemorrhoids. Recommendation: - Patient has a contact number available for emergencies. The signs and symptoms of potential delayed complications were discussed with the patient. Return to normal activities tomorrow. Written discharge instructions were provided to the patient. - Resume previous diet. - High fiber diet. - Continue present medications. - Await pathology results. - Repeat colonoscopy in 3 years for surveillance. - Okay for discharge from GI standpoint Referring MD: Shiv Lopez MD Medicines: Monitored Anesthesia Care, See the Anesthesia note for documentation of the administered medications Procedure: Pre-Anesthesia Assessment: - Prior to the procedure, a History and Physical was performed, and patient medications and allergies were reviewed. The patient's tolerance of previous anesthesia was also reviewed. The risks and benefits of the procedure and the sedation options and risks were discussed with the patient. All questions were answered, and informed consent was obtained. Prior Anticoagulants: The patient has taken no anticoagulant or antiplatelet agents. ASA Grade Assessment: III - A patient with severe systemic disease. After reviewing the risks and benefits, the patient was deemed in satisfactory condition to undergo the procedure. After I obtained informed consent, the scope was passed under direct vision. Throughout the procedure, the patient's blood pressure, pulse, and oxygen saturations were monitored continuously. The Colonoscope was introduced through the anus and advanced to the cecum, identified by appendiceal orifice and ileocecal valve. The colonoscopy was performed without difficulty. The patient tolerated the procedure well. The quality of the bowel preparation was good. The ileocecal valve, appendiceal orifice, and rectum were photographed. Complications: No immediate complications. Procedure Code(s): --- Professional --- 67944, Colonoscopy, flexible; with removal of tumor(s), polyp(s), or other lesion(s) by snare technique --- Technical --- 87380, Colonoscopy, flexible; with removal of tumor(s), polyp(s), or other lesion(s) by snare technique Diagnosis Code(s): --- Professional --- K64.8, Other hemorrhoids D12.2, Benign neoplasm of ascending colon K92.1, Melena (includes Hematochezia) K57.30, Diverticulosis of large intestine without perforation or abscess without bleeding --- Technical --- K64.8, Other hemorrhoids D12.2, Benign neoplasm of ascending colon K92.1, Melena (includes Hematochezia) K57.30, Diverticulosis of large intestine without perforation or abscess without bleeding CPT copyright 2021 [employer]. All rights reserved. The codes documented in this report are preliminary and upon auto parts handler review may be revised to meet current compliance requirements. Attending Participation: I personally performed the entire procedure. Avery Marshall DO 12/07/2022 9:46:22 AM This report has been signed electronically. Number of Addenda: 0 Note Initiated On: 12/07/2022 7:48 AM * Care Coordination - Laura Jackson RN - 12/06/2022 10:36 AM EDT Care Managment Initial Assessment Date: 12/06/2022 Patient Name: Radha Sandoval : 1945 Patient Information Source of Information: Patient Cognition/Language: WFL - Within Functional Limits Permission given to speak with patient ambulatory service representative/caregiver as indicated: Yes Confirmation of Payer with patient/family: Yes Payer Name: [employer] : No Confirmation of Primary Care Physician: Confirmed PCP Name: John Seen in last 2 years?: Yes Primary Caregiver: Self If assistance needed, confirmed caregiver ready, willing and able to care for patient at discharge:Yes Confirmed with: per pt, son or friend Living Arrangements Current Residence: House Number of Floors 1 (laundry in basement) Number of Entry Steps: 2 Bed/Bath Levels: Facility: Facility Name: Plan to Return: Lives with: Alone Support Systems: Family members, Friends/neighbors, Children Activities of Daily Living Ambulation: Assistance (cane) Bathing/Dressing: Independent Elimination/Continence/Toileting: Independent Feeding: Independent Who Assists with Activities of Daily Living: Instrumental Activities of Daily Living Prescription Coverage: Yes Pharmacy Used: [facility] [place] Medication Management: Independent Transportation/Shopping: Independent Transportation Mode: Car Needs Assistance with Transportation at Discharge: No (son or friend) Meal Preparation: Independent Laundry/Cleaning: Independent Finances/Bill Paying: Independent Communication: Independent Types of Care Services/Equipment Utilized Care Services: Dialysis Type: NA Durable Medical Equipment: Cane, Walker, Shower Seat, Glucometer Patient's Goal/Discharge Plan Patient expects to be discharged to: Home Discharge Planning Actions: No needs identified, Continue to follow Patient's Choice Rights and [employer] and Collaborative Relationships Disclosed as Indicated for Post-Acute Care: NA Interdisciplinary Team Engagement: Social Work Referral for: Additional Information: 77 yo female admitted to for GIB. Hgb 11.3 this AM. On IVF, CLD and GI consulted. Plan for colonoscopy tomorrow, NPO at midnight. Met with pt at bedside, introduced self and explained role of tcc.Pt has insurance with RX coverage, active with PCP. Pt lives at home alone, uses a cane in the community. Anticipates no needs at discharge, friend or son will transport home. TCC to assist and follow as needed. Laura Jackson RN documented in this [facility]06-21-2023 Hospital Discharge instructions* Discharge Instr - Activity* Gabrielle Finch MD - 12/07/2022 1:48 PM EDT As tolerated * Discharge Instr - Diet* Gabrielle Finch MD - 12/07/2022 1:49 PM EDT Carb control diet documented in this [facility]06-21-2023 Hospital course Narrative* Gabrielle Finch MD - 12/07/2022 1:30 PM EDT Seen and examined. Full note to follow documented in this [facility]06-21-2023 Note* Care Coordination - Laura Jackson RN - 12/07/2022 11:51 AM EDT Images from the original note were not included. Care Management Progress Note Pt remains on 1E, had colonoscopy today, diverticulosis noted, polyp removed and biopsy cx sent. Hgb 10.4 this AM. On regular diet and IVF. Pt is from home alone, will return once medically stable. TCC to assist and follow as needed. Discharge Milestones and Delays Expected Date/Time: 12/08/[address] discharge order Complete med reconciliation Case mgmt discharge readiness Clinical Stability Diagnsotic Workup Expected Discharge History Expected Date/Time Set By Reviewed At 12/08/2022 Laura Jackson RN 12/07/2022 7:39 AM cscope today 12/08/2022 Laura Jackson RN 12/06/2022 8:22 AM 12/08/2022 ANASTASIA Molina 12/06/2022 12:49 AM 12/08/2022 ANASTASIA Molina 12/05/2022 4:29 PM Length of Stay (Days): 2 GMLOS: No GMLOS Documented [facility] [id number] Note* Care Coordination - Laura Jackson RN - 12/07/2022 11:51 AM EDT Images from the original note were not included. Care Management Progress Note Pt remains on 1E, had colonoscopy today, diverticulosis noted, polyp removed and biopsy cx sent. Hgb 10.4 this AM. On regular diet and IVF. Pt is from home alone, will return once medically stable. TCC to assist and follow as needed. Discharge Milestones and Delays Expected Date/Time: 12/08/[address] discharge order Complete med reconciliation Case mgmt discharge readiness Clinical Stability Diagnsotic Workup Expected Discharge History Expected Date/Time Set By Reviewed At 12/08/2022 Laura Jackson RN 12/07/2022 7:39 AM cscope today 12/08/2022 Laura Jackson RN 12/06/2022 8:22 AM 12/08/2022 ANASTASIA Molina 12/06/2022 12:49 AM 12/08/2022 ANASTASIA Molina 12/05/2022 4:29 PM Length of Stay (Days): 2 GMLOS: No GMLOS Documented [facility] [id number] Note* Perioperative Nursing Note - Ashley Dickens RN - 12/07/2022 9:57 AM EDT POST ENDOSCOPY PROCEDURE TRANSFER REPORT Physician: Dr. Marshall Procedure completed: colonoscopy Specimens obtained: Yes Medications administered: See MAR Findings: see MD report Complications: none Please call the Main Endoscopy Dept at [phone] for questions. [facility] [id number] Note* Perioperative Nursing Note - Ashley Dickens RN - 12/07/2022 9:57 AM EDT POST ENDOSCOPY PROCEDURE TRANSFER REPORT Physician: Dr. Marshall Procedure completed: colonoscopy Specimens obtained: Yes Medications administered: See MAR Findings: see MD report Complications: none Please call the Main Endoscopy Dept at [phone] for questions. [facility] [id number] History of Present illness Narrative* Edelmira Hanna - 12/07/2022 7:58 AM EDT Patient has been NPO/ CLRS x3 days without adequate nutrition. Patient referred to RD. * Lani Bolton, SAMPLE CASE PORTER - 12/06/2022 5:38 PM EDT [facility] Respiratory Care Department Progress Note As part of the Respiratory Assessment Program (RAP), the following Respiratory Therapist evaluationhas been completed, including a chart review and clinical/physical assessment. Respiratory Therapist RAP Evaluation Guideline Points 0 1 2 3 4 Points Strongly Consider History Factor No Pulmonary conditions Stable Pulmonary condition(s) Surgery or Intervention that may impact Pulmonary system (at risk) Surgery or Intervention that is impacting Pulmonary system Active Exacerbation of Pulmonary Condition 1 Respiratory Pattern Regular, RR= 12-18 IRWIN or Increased RR= 19-24 Irregular, or RR= 25-30 SOB, talk in short sentences, or RR= 31-35 Severe SOB, accessory muscle use, one word answers, or RR>35 1 Aerosol Med(s), High Flow O2 Breath Sounds Clear Diminished in 1 lobe Diminished in ? 2 lobes Adventitious breath sounds Coarse crackles, Wheezes, or Diminished in >2 lobes 0 Aerosol Med(s), Bronchial Hygiene, Hyperinflation Cough & Sputum Strong cough, no secretion retention or production Weak cough, no secretion retention or production Weak cough, w/ production (less often than Q2hr), or secretion retention No cough, w/ secretion retention or production (less often than Q2hr) Significant secretion production (more often than Q2hr) or mucus plug 0 Aerosol Med(s), Bronchial Hygiene, Hyperinflation Level of Activity Ambulatory Ambulatory with Assist Up in chair or edge of bed (dangle) Non-ambulatory, bedridden with active ROM Completely paralyzed or without active ROM 0 Triage 5 0-2 Triage 4 3-5 Triage 3 6-10 Triage 2 11-14 Triage 1 ?15 Total 3 Triage Score = 3 TRIAGE SCORING - SUGGESTED FREQUENCIES Aerosol Therapy Bronchial Hygiene Hyperinflation Triage Score Q4h & PRN 1 Q4hWA (QID) & PRN 2 TID & PRN 3 BID & PRN 4 PRN 5 Therapy(s) Indicated Yes/No Aerosol Medication y Hyperinflation Bronchial Hygiene High Flow Oxygen Flow Rates PEF (L/Sec) IVC FVC FEV1 FEV1/FVC Patient instructed and returned demonstration on use of MDI (with spacer, as appropriate) None RT to enter/modify frequency of treatment order in EMR/EHR to match this RAP evaluation. Based on this RAP evaluation the following therapy is being initiated: tid At the following frequency: tid Comments: Thank you for involving Respiratory in the care of this patient, * Gabrielle Finch MD - 12/06/2022 12:33 PM EDT Images from the original note were not included. Hospitalist Progress Note 12/06/[id number]: Please secure chat me for patient care issues. [phone]: Please secure chat [facility] Hospitalist for any issues. Subjective: Admit Date: 12/05/2022 PCP: Shiv Lopez MD Room#: B1-148/B1-148 A Interval History: She is weak. Still with bleeding. Not dizzy. She denies chest pain, sob, abdominal pain, nausea, vomiting, diarrhea, constipation, fevers, or chills. Awaiting colonoscopy. D/w pt Adult diet Clear Liquid NPO diet NPO except: Sips of Water with Meds @[id number]@ 24HR INTAKE/OUTPUT: Intake/Output Summary (Last 24 hours) at 12/06/2022 1234 Last data filed at 12/06/2022 0829 Gross per 24 hour Intake -- Output 300 ml Net -300 ml Past Medical History: Past Medical History: Diagnosis Date Allergic Anxiety Arthritis Asthma Candidiasis of vulva and vagina CKD (chronic kidney disease) Depression Dietary counseling and surveillance Hyperlipidemia Hyperparathyroidism (HCC) Hypertension Hypothyroidism Malaise and fatigue Morbid obesity (HCC) Muscle weakness Nevus, non-neoplastic Pain in limb Pure hypercholesterolemia RLS (restless legs syndrome) Type 2 diabetes mellitus (HCC) Varicella LABS: CBC: Recent Labs 12/05/22 1130 12/05/22 1730 12/05/22 1848 12/06/22 0001 12/06/22 0615 WBC 12.5* 11.6* -- 9.8 -- RBC 4.37 4.21 -- 3.73* -- HGB 12.9 12.3 12.2 11.1* 11.3* HCT 39.3 37.9 -- 33.4* 34.3* MCV 89.8 90.1 -- 89.5 -- RDW 13.9 13.7 -- 13.7 -- PLT 271 244 -- 233 -- BMP: Recent Labs 12/05/22 1213 12/06/22 0615 NA 136 134* K 4.0 3.5 CL 102 105 CO2 29 26 BUN 26* 18* CREATININE 0.91 0.68 GLUCOSE 260* 169* CALCIUM 8.7 7.9* ANIONGAP 5 2* LIVER PROFILE: Recent Labs 12/05/22 1213 AST 25 ALT 16 BILITOT 0.9 ALKPHOS 107 PROT 7.2 PT/INR: Recent Labs 12/05/22 1730 12/06/22 0615 PROTIME 11.0 11.2 INR 1.0 1.0 CARDIAC ENZYMES: No results for input(s): TROPONINI in the last 72 hours. Procalcitonin: No results found for: PROCAL COVID-19 PCR: No results for input(s): COVID19 in the last 72 hours. Objective: Vitals: BP 125/63 Pulse 67 Temp 36.9 C (98.5 F) (Temporal) Resp 17 SpO2 96% Pulse Ox: SpO2 Av % Min: 91 % Max: 99 % Physical Exam Vitals and nursing note reviewed. Constitutional: Appearance: She is obese. She is not toxic-appearing. HENT: Head: Normocephalic and atraumatic. Mouth/Throat: Mouth: Mucous membranes are dry. Cardiovascular: Rate and Rhythm: Normal rate and regular rhythm. Pulses: Normal pulses. Heart sounds: Normal heart sounds. Pulmonary: Effort: Pulmonary effort is normal. Breath sounds: Normal breath sounds. Abdominal: General: Bowel sounds are normal. There is no distension. Palpations: Abdomen is soft. Tenderness: There is no abdominal tenderness. There is no guarding. Musculoskeletal: General: Normal range of motion. Cervical back: Normal range of motion. Right lower leg: No edema. Left lower leg: No edema. Skin: General: Skin is warm. Neurological: General: No focal deficit present. Mental Status: She is alert and oriented to person, place, and time. Mental status is at baseline. Psychiatric: Mood and Affect: Mood normal. Medications: sodium chloride, 75 mL/hr, Last Rate: 75 mL/hr (12/05/22 1900) albuterol, 2 puff, Inhalation, 4x daily amLODIPine, 10 mg, Oral, Daily baclofen, 10 mg, Oral, Daily insulin lispro, 0-12 Units, SubCUTAneous, TID WC And insulin lispro, 0-12 Units, SubCUTAneous, Nightly levothyroxine, 150 mcg, Oral, Daily lisinopril, 40 mg, Oral, Daily PARoxetine, 20 mg, Oral, q AM polyethylene glycol, 4,000 mL, Oral, Once pramipexole, 0.125 mg, Oral, Nightly rosuvastatin, 10 mg, Oral, Daily sodium chloride 0.9%, 10 mL, IntraVENous, 2 times per day Assessment GI bleeding Acute blood loss anemia HTN DM2 with hyperglycemia Hyperlipidemia Hypothyroidism Depression/anxiety leukocytosis Medical Decision Making Monitor hb, GI has seen, bowel prep, colonoscopy in AM, POCT, SSI, continue present medications, discharge planning, see orders. -am labs, replace lytes prn -increase activity -DVT prophylaxis: [] Lovenox [] Heparin [x] SCDs [x] Encourage ambulation [] Already on Anticoagulation Anticipated Discharge - Date - 12/07 - Location - Home - Pending the following - colonoscopy results, clinical improvement and when OK with GI Total time spent (which include face to face and non face to face encounters) : 46 minutes Toxic drug monitoring/narrow therapeutic index drug monitoring : # Drug name : # Route administered : # Method of monitoring : Extended Emergency Contact Information Primary Emergency Contact: Angel Roger Address: [address] Mobile Relation: Child GABRIELLE FINCH MD Division of Hospitalist Medicine Acute care SupportBee PAGER: Epic chat documented in this [facility]06-21-2023 Note* Op Note - Avery Marshall DO - 12/07/2022 7:48 AM EDT [facility] Name: Radha Sandoval Procedure Date: 12/07/2022 7:48 AM Gender: Female Date of : 1945 Age: 77 Admit Type: Inpatient Note Status: Finalized Endoscopist: Avery Marshall DO, [id number] Procedure: Colonoscopy Indications: Hematochezia Findings: The perianal and digital rectal examinations were normal. Pertinent negatives include normal sphincter tone and no palpable rectal lesions. Multiple small and large-mouthed diverticula were found in the sigmoid colon, descending colon and ascending colon. There was no evidence of diverticular bleeding. A 15 mm polyp was found in the proximal ascending colon. The polyp was multi-lobulated and sessile. The polyp was removed with a piecemeal technique using a cold snare in two pieces. Resection and retrieval were complete. Non-bleeding internal hemorrhoids were found during retroflexion. The hemorrhoids were medium-sized. Impression: - Moderate diverticulosis in the sigmoid colon, in the descending colon and in the ascending colon. There was no evidence of diverticular bleeding. - One 15 mm polyp in the proximal ascending colon, removed piecemeal using a cold snare. Resected and retrieved. - Non-bleeding internal hemorrhoids. Recommendation: - Patient has a contact number available for emergencies. The signs and symptoms of potential delayed complications were discussed with the patient. Return to normal activities tomorrow. Written discharge instructions were provided to the patient. - Resume previous diet. - High fiber diet. - Continue present medications. - Await pathology results. - Repeat colonoscopy in 3 years for surveillance. - Okay for discharge from GI standpoint Referring MD: Shiv Lopez MD Medicines: Monitored Anesthesia Care, See the Anesthesia note for documentation of the administered medications Procedure: Pre-Anesthesia Assessment: - Prior to the procedure, a History and Physical was performed, and patient medications and allergies were reviewed. The patient's tolerance of previous anesthesia was also reviewed. The risks and benefits of the procedure and the sedation options and risks were discussed with the patient. All questions were answered, and informed consent was obtained. Prior Anticoagulants: The patient has taken no anticoagulant or antiplatelet agents. ASA Grade Assessment: III - A patient with severe systemic disease. After reviewing the risks and benefits, the patient was deemed in satisfactory condition to undergo the procedure. After I obtained informed consent, the scope was passed under direct vision. Throughout the procedure, the patient's blood pressure, pulse, and oxygen saturations were monitored continuously. The Colonoscope was introduced through the anus and advanced to the cecum, identified by appendiceal orifice and ileocecal valve. The colonoscopy was performed without difficulty. The patient tolerated the procedure well. The quality of the bowel preparation was good. The ileocecal valve, appendiceal orifice, and rectum were photographed. Complications: No immediate complications. Procedure Code(s): --- Professional --- 09003, Colonoscopy, flexible; with removal of tumor(s), polyp(s), or other lesion(s) by snare technique --- Technical --- 94271, Colonoscopy, flexible; with removal of tumor(s), polyp(s), or other lesion(s) by snare technique Diagnosis Code(s): --- Professional --- K64.8, Other hemorrhoids D12.2, Benign neoplasm of ascending colon K92.1, Melena (includes Hematochezia) K57.30, Diverticulosis of large intestine without perforation or abscess without bleeding --- Technical --- K64.8, Other hemorrhoids D12.2, Benign neoplasm of ascending colon K92.1, Melena (includes Hematochezia) K57.30, Diverticulosis of large intestine without perforation or abscess without bleeding CPT copyright 2021 [employer]. All rights reserved. The codes documented in this report are preliminary and upon auto parts handler review may be revised to meet current compliance requirements. Attending Participation: I personally performed the entire procedure. Avery Marshall DO 12/07/2022 9:46:22 AM This report has been signed electronically. Number of Addenda: 0 Note Initiated On: 12/07/2022 7:48 AM [place] Phone: [phone]) 374-472006-21-2023 Note* Op Note - Avery Marshall DO - 12/07/2022 7:48 AM EDT [facility] Patient Name: Radha Sandoval Procedure Date: 12/07/2022 7:48 AM Gender: Female Date of : 1945 Age: 77 Admit Type: Inpatient Note Status: Finalized Endoscopist: Avery Marshall DO, [id number] Procedure: Colonoscopy Indications: Hematochezia Findings: The perianal and digital rectal examinations were normal. Pertinent negatives include normal sphincter tone and no palpable rectal lesions. Multiple small and large-mouthed diverticula were found in the sigmoid colon, descending colon and ascending colon. There was no evidence of diverticular bleeding. A 15 mm polyp was found in the proximal ascending colon. The polyp was multi-lobulated and sessile. The polyp was removed with a piecemeal technique using a cold snare in two pieces. Resection and retrieval were complete. Non-bleeding internal hemorrhoids were found during retroflexion. The hemorrhoids were medium-sized. Impression: - Moderate diverticulosis in the sigmoid colon, in the descending colon and in the ascending colon. There was no evidence of diverticular bleeding. - One 15 mm polyp in the proximal ascending colon, removed piecemeal using a cold snare. Resected and retrieved. - Non-bleeding internal hemorrhoids. Recommendation: - Patient has a contact number available for emergencies. The signs and symptoms of potential delayed complications were discussed with the patient. Return to normal activities tomorrow. Written discharge instructions were provided to the patient. - Resume previous diet. - High fiber diet. - Continue present medications. - Await pathology results. - Repeat colonoscopy in 3 years for surveillance. - Okay for discharge from GI standpoint Referring MD: Shiv Lopez MD Medicines: Monitored Anesthesia Care, See the Anesthesia note for documentation of the administered medications Procedure: Pre-Anesthesia Assessment: - Prior to the procedure, a History and Physical was performed, and patient medications and allergies were reviewed. The patient's tolerance of previous anesthesia was also reviewed. The risks and benefits of the procedure and the sedation options and risks were discussed with the patient. All questions were answered, and informed consent was obtained. Prior Anticoagulants: The patient has taken no anticoagulant or antiplatelet agents. ASA Grade Assessment: III - A patient with severe systemic disease. After reviewing the risks and benefits, the patient was deemed in satisfactory condition to undergo the procedure. After I obtained informed consent, the scope was passed under direct vision. Throughout the procedure, the patient's blood pressure, pulse, and oxygen saturations were monitored continuously. The Colonoscope was introduced through the anus and advanced to the cecum, identified by appendiceal orifice and ileocecal valve. The colonoscopy was performed without difficulty. The patient tolerated the procedure well. The quality of the bowel preparation was good. The ileocecal valve, appendiceal orifice, and rectum were photographed. Complications: No immediate complications. Procedure Code(s): --- Professional --- 74267, Colonoscopy, flexible; with removal of tumor(s), polyp(s), or other lesion(s) by snare technique --- Technical --- 94607, Colonoscopy, flexible; with removal of tumor(s), polyp(s), or other lesion(s) by snare technique Diagnosis Code(s): --- Professional --- K64.8, Other hemorrhoids D12.2, Benign neoplasm of ascending colon K92.1, Melena (includes Hematochezia) K57.30, Diverticulosis of large intestine without perforation or abscess without bleeding --- Technical --- K64.8, Other hemorrhoids D12.2, Benign neoplasm of ascending colon K92.1, Melena (includes Hematochezia) K57.30, Diverticulosis of large intestine without perforation or abscess without bleeding CPT copyright 2021 [employer]. All rights reserved. The codes documented in this report are preliminary and upon auto parts handler review may be revised to meet current compliance requirements. Attending Participation: I personally performed the entire procedure. Avery Marshall DO 12/07/2022 9:46:22 AM This report has been signed electronically. Number of Addenda: 0 Note Initiated On: 12/07/2022 7:48 AM [place] Phone: [phone]) 399-408106-20-2023 Note* Care Coordination - Laura Jackson RN - 12/06/2022 10:36 AM EDT Care Managment Initial Assessment Date: 12/06/2022 Patient Name: Radha Sandoval : 1945 Patient Information Source of Information: Patient Cognition/Language: WFL - Within Functional Limits Permission given to speak with patient ambulatory service representative/caregiver as indicated: Yes Confirmation of Payer with patient/family: Yes Payer Name: [employer] [place]: No Confirmation of Primary Care Physician: Confirmed PCP Name: John Seen in last 2 years?: Yes Primary Caregiver: Self If assistance needed, confirmed caregiver ready, willing and able to care for patient at discharge:Yes Confirmed with: per pt, son or friend Living Arrangements Current Residence: House Number of Floors 1 (laundry in basement) Number of Entry Steps: 2 Bed/Bath Levels: Facility: Facility Name: Plan to Return: Lives with: Alone Support Systems: Family members, Friends/neighbors, Children Activities of Daily Living Ambulation: Assistance (cane) Bathing/Dressing: Independent Elimination/Continence/Toileting: Independent Feeding: Independent Who Assists with Activities of Daily Living: Instrumental Activities of Daily Living Prescription Coverage: Yes Pharmacy Used: [facility] [place] Medication Management: Independent Transportation/Shopping: Independent Transportation Mode: Car Needs Assistance with Transportation at Discharge: No (son or friend) Meal Preparation: Independent Laundry/Cleaning: Independent Finances/Bill Paying: Independent Communication: Independent Types of Care Services/Equipment Utilized Care Services: Dialysis Type: NA Durable Medical Equipment: Cane, Walker, Shower Seat, Glucometer Patient's Goal/Discharge Plan Patient expects to be discharged to: Home Discharge Planning Actions: No needs identified, Continue to follow Patient's Choice Rights and [employer] and Collaborative Relationships Disclosed as Indicated for Post-Acute Care: NA Interdisciplinary Team Engagement: Social Work Referral for: Additional Information: 77 yo female admitted to for GIB. Hgb 11.3 this AM. On IVF, CLD and GI consulted. Plan for colonoscopy tomorrow, NPO at midnight. Met with pt at bedside, introduced self and explained role of tcc.Pt has insurance with RX coverage, active with PCP. Pt lives at home alone, uses a cane in the community. Anticipates no needs at discharge, friend or son will transport home. TCC to assist and follow as needed. Laura Jackson RN [facility]06-20-2023 Note* Care Coordination - Laura Jackson RN - 12/06/2022 10:36 AM EDT Care Managment Initial Assessment Date: 12/06/2022 Patient Name: Radha Sandoval : 1945 Patient Information Source of Information: Patient Cognition/Language: WFL - Within Functional Limits Permission given to speak with patient ambulatory service representative/caregiver as indicated: Yes Confirmation of Payer with patient/family: Yes Payer Name: [employer] : No Confirmation of Primary Care Physician: Confirmed PCP Name: John Seen in last 2 years?: Yes Primary Caregiver: Self If assistance needed, confirmed caregiver ready, willing and able to care for patient at discharge:Yes Confirmed with: per pt, son or friend Living Arrangements Current Residence: House Number of Floors 1 (laundry in basement) Number of Entry Steps: 2 Bed/Bath Levels: Facility: Facility Name: Plan to Return: Lives with: Alone Support Systems: Family members, Friends/neighbors, Children Activities of Daily Living Ambulation: Assistance (cane) Bathing/Dressing: Independent Elimination/Continence/Toileting: Independent Feeding: Independent Who Assists with Activities of Daily Living: Instrumental Activities of Daily Living Prescription Coverage: Yes Pharmacy Used: [facility] [place] Medication Management: Independent Transportation/Shopping: Independent Transportation Mode: Car Needs Assistance with Transportation at Discharge: No (son or friend) Meal Preparation: Independent Laundry/Cleaning: Independent Finances/Bill Paying: Independent Communication: Independent Types of Care Services/Equipment Utilized Care Services: Dialysis Type: NA Durable Medical Equipment: Cane, Walker, Shower Seat, Glucometer Patient's Goal/Discharge Plan Patient expects to be discharged to: Home Discharge Planning Actions: No needs identified, Continue to follow Patient's Choice Rights and [employer] and Collaborative Relationships Disclosed as Indicated for Post-Acute Care: NA Interdisciplinary Team Engagement: Social Work Referral for: Additional Information: 77 yo female admitted to for GIB. Hgb 11.3 this AM. On IVF, CLD and GI consulted. Plan for colonoscopy tomorrow, NPO at midnight. Met with pt at bedside, introduced self and explained role of tcc.Pt has insurance with RX coverage, active with PCP. Pt lives at home alone, uses a cane in the community. Anticipates no needs at discharge, friend or son will transport home. TCC to assist and follow as needed. Laura Jackson RN [id number] Consult note* Malcolm Rodriguez MD - 12/06/2022 9:33 AM EDTAssociated Order(s): Inpatient consult to Gastroenterology Images from the original note were not included. GI CONSULTATION Patient: Radha Sandoval : 1945 Primary Care Physician: Shiv Lopez MD Inpatient consult to Gastroenterology Consult performed by: Malcolm Rodriguez MD Consult ordered by: Bertram Durbin MD CHIEF COMPLAINT: rectal bleeding HISTORY OF PRESENT ILLNESS: 77 yo female with PMH as below whom GI is consulted for rectal bleeding. Starting Monday, has noticed BRBPR and clots. Prior to this, stools were harder, but denies any straining. Associated RLQ pain. She never had any symptoms like this before. No previous colonoscopy. Denies any family history of CRC, Crohn's, or ulcerative colitis. CTA abdomen/pelvis with no active GI bleed but diverticulosis. Patient is not on any blood thinners. States she has not seen any additional bleeding this morning. Labs showed Hgb 12.9 (at baseline) with repeat at 11.3; INR 1.0; normal BMP; lipase 43; normal LFT's PAST MEDICAL HISTORY: Past Medical History: Diagnosis Date Allergic Anxiety Arthritis Asthma Candidiasis of vulva and vagina CKD (chronic kidney disease) Depression Dietary counseling and surveillance Hyperlipidemia Hyperparathyroidism (HCC) Hypertension Hypothyroidism Malaise and fatigue Morbid obesity (HCC) Muscle weakness Nevus, non-neoplastic Pain in limb Pure hypercholesterolemia RLS (restless legs syndrome) Type 2 diabetes mellitus (HCC) Varicella PAST SURGICAL HISTORY: Past Surgical History: Procedure Laterality Date ABDOMINAL SURGERY mid 80's APPENDECTOMY CHOLECYSTECTOMY COLONOSCOPY 06/19/2008 EYE SURGERY early LUNG REMOVAL, PARTIAL ROTATOR CUFF REPAIR TONSILLECTOMY FAMILY HISTORY: Family History Problem Relation Name Age of Onset Mental illness Mother GHANSHYAM COLEY Depression Mother GHANSHYAM COLEY Heart disease Father LATHA COLEY High Blood Pressure Father LATHA COLEY Asthma Father LATHA COLEY Hypertension Father LATHA COLEY Diabetes Brother CATRACHO COLEY SOCIAL HISTORY: TOBACCO: reports that she has never smoked. She has never used smokeless tobacco. ETOH: reports current alcohol use of about 1.0 - 2.0 standard drink of alcohol per week. DRUGS: reports no history of drug use. Medications: Prior to Admission medications Medication Sig Start Date End Date Taking? Authorizing Provider amLODIPine (Norvasc) 10 MG tablet Take 10 mg by mouth daily. 07/15/21 Historical Provider, baclofen (Lioresal) 10 MG tablet Take 1 tablet (10 mg) by mouth daily. 10/04/22 ELSA Arriaza CNP ergocalciferol (Vitamin D-2) 1.25 MG (53573 UT) capsule Take 1 capsule (1.25 mg) by mouth 1 (one) time per week. 07/18/22 ELSA Arriaza CNP Glucose Blood (Blood Glucose Test) strip Test blood sugar 3 times a day.PLEASE FILL FOR TRUE METRIXTEST STRIPS 01/10/22 Historical Provider, hydrOXYzine HCl (Atarax) 25 MG tablet Take 1 tablet (25 mg) by mouth every 8 hours as needed for anxiety. 08/12/22 10/25/22 Shiv Lopez MD insulin aspart (NovoLOG FLEXPEN) 100 UNIT/ML pen Inject 16 Units under the skin. Before meals. 06/24/21 Historical Provider, levothyroxine (Synthroid, Levoxyl) 150 MCG tablet Take 1 tablet (150 mcg) by mouth daily. 10/04/22 01/02/23 ELSA Arriaza CNP lisinopril 40 MG tablet Take 1 tablet by mouth in the morning. 06/28/21 Historical Provider, meloxicam (Mobic) 7.5 MG tablet Take 1 tablet (7.5 mg) by mouth daily. 10/04/22 ELSA Arriaza CNP PARoxetine (Paxil) 20 MG tablet Take 1 tablet by mouth in the morning. 12/27/21 Historical Provider, pramipexole (Mirapex) 1 MG tablet Take 2 tablets (2 mg) by mouth Nightly. 07/26/22 Shiv Lopez MD rosuvastatin (Crestor) 10 MG tablet Take 1 tablet (10 mg) by mouth daily. 06/14/22 Katia Granados APRN - JORGE zolpidem (Ambien) 10 MG tablet Take 1 tablet (10 mg) by mouth Nightly as needed for sleep. 11/22/22 Shiv Lopez MD albuterol 108 (90 Base) MCG/ACT inhaler Inhale 2 puffs in the morning, at noon, in the evening, andat bedtime. 03/10/22 12/06/22 Historical Provider, @MEDCMED@ ALLERGIES: Allergies Allergen Reactions Codeine Itching Other Percodan Oxycodone Hives Oxycodone-Aspirin Vancomycin Other reaction(s): U REVIEW OF SYSTEMS: No fever, chills, or sweats. Normal appetite and weight. No RODRIGUEZ, visual disturbance, eye pain, jaundice, sore throat or mouth ulcers. No skin rash or itching. No CP, SOB, IRWIN, cough or wheeze. No urinary frequency, urgency, hematuria, or dysuria. No myalgia, arthralgia, or joint swelling. No weakness, numbness, or confusion. GI per HPI. No polyuria, polydipsia, heat or cold intolerance. PHYSICAL EXAM: VS: BP 125/63 Pulse 67 Temp 36.9 C (98.5 F) (Temporal) Resp 17 SpO2 96% There is no height or weight on file to calculate BMI. GENERAL: Pleasant and NAD. HEENT: NCAT, PERRLA, EOMI, Scleral anicteric. CV: RRR, NL S1/S2, no murmurs. LUNGS: CTA b/l. No W/R/R. Abdomen: + BS, soft, non-tender and non-distended. No rebound or guarding. No hernia. Neurologic: A&O x 3, CN II-XII grossly intact. Non-focal. Psych: Normal affect and speech. LABS AND IMAGING: Recent blood work and relevant radiologic and endoscopic studies were reviewed and discussed with the patient. Old records have not been requested. CBC: Recent Labs 12/05/22 1730 12/05/22 1848 12/06/22 0001 12/06/22 0615 WBC 11.6* -- 9.8 -- HGB 12.3 12.2 11.1* 11.3* HCT 37.9 -- 33.4* 34.3* PLT 244 -- 233 -- HEPATIC: Recent Labs 12/05/22 1213 AST 25 ALT 16 BILITOT 0.9 ALKPHOS 107 LIPASE/AMYLASE: Recent Labs 12/05/22 1213 LIPASE 43 LACTATE: No lab exists for component: LACTA BNP: No results for input(s): BNP in the last 72 hours. INR: Recent Labs 12/05/22 1730 12/06/22 0615 INR 1.0 1.0 CTA abdomen pelvis angiogram w and/or wo IV contrast Result Date: 12/05/2022 Patient Name: RADHA SANDOVAL : 1945 [facility]#: [id number] ExamDate/Time: 12/05/2022 15:39 Procedure: CT ABDOMEN PELVIS ANGIOGRAM W AND/OR WO IV CONTRAST OrderingProvider: FULLER AMY Reason For Exam: GI bleed, lower Study: CT abdomen pelvis. INDICATION:GI bleeding COMPARISON:None FINDINGS: Dose reduction was employed with automated exposure control. Imagingof the abdomen and pelvis were performed With and without intravenous contrast 75 mL [id number].. Imaging viewed in multiple planes. Additional imagin-D imaging created and reviewed on independentplatform for better detection of significant pathology. Lung bases:No convincing acute process. Free air: No free air. Bowel: No convincing obstruction or focal inflammation, definite diverticulitis appendicitis or abscess. Diverticulosis noted. Limited, lack of oral contrast.. No extravasation of intravenous contrast into bowel loops. Peritoneal cavity:No convincing acute process. Gallbladder:Absent Liver spleen pancreas kidneys adrenal glands urinary bladder: No convincing acute process or findings to explain symptoms. Left renal cyst. Pelvic structures:No convincing acute process. Vascular:No convincing extravasation of contrast. Retroperitoneum: No adenopathy or acute process. Spine:No convincing acute process of bone, paraspinous soft tissues. Abdominal wall:Ventral hernia fat only. The etiology of the symptoms is not certain. No extravasation of contrast visualized. Report Dictated on Electronically Signed By: Toñito Chandra Electronically Signed Date/Time: 12/05/2022 3:55 PM EDT IMPRESSION: Rectal bleeding - symptoms started Monday, associated with clots, CTA negative except for diverticulosis, Hgb 11.3, no previous colonoscopy; differential includes diverticular bleed vs hemorrhoid vs large polyp/mass RECOMMENDATIONS: Plan for colonoscopy tomorrow Continue clear liquid diet today and prep starting this evening Continue to monitor Hgb closely The benefits, alternatives, and risks of the procedure(s) including (but not exclusive to) pain, bleeding, perforation, infection, nausea, vomiting, aspiration, hypoxia/hypotension/allergic reaction(s) due to sedatives, phlebitis, need for hospitalization, need for transfusions, need for antibiotic therapy, need for surgery, and likelihood of missing a polyp or neoplastic lesion, were explained to the patient/guardian/responsible accompanying adult who is agreeable. [place] Phone: [phone] Consult note* Malcolm Rodriguez MD - 12/06/2022 9:33 AM EDTAssociated Order(s): Inpatient consult to Gastroenterology Images from the original note were not included. GI CONSULTATION Patient: Radha Sandoval : 1945 Primary Care Physician: Shiv Lopez MD Inpatient consult to Gastroenterology Consult performed by: Malcolm Rodriguez MD Consult ordered by: Bertram Durbin MD CHIEF COMPLAINT: rectal bleeding HISTORY OF PRESENT ILLNESS: 77 yo female with PMH as below whom GI is consulted for rectal bleeding. Starting Monday, has noticed BRBPR and clots. Prior to this, stools were harder, but denies any straining. Associated RLQ pain. She never had any symptoms like this before. No previous colonoscopy. Denies any family history of CRC, Crohn's, or ulcerative colitis. CTA abdomen/pelvis with no active GI bleed but diverticulosis. Patient is not on any blood thinners. States she has not seen any additional bleeding this morning. Labs showed Hgb 12.9 (at baseline) with repeat at 11.3; INR 1.0; normal BMP; lipase 43; normal LFT's PAST MEDICAL HISTORY: Past Medical History: Diagnosis Date Allergic Anxiety Arthritis Asthma Candidiasis of vulva and vagina CKD (chronic kidney disease) Depression Dietary counseling and surveillance Hyperlipidemia Hyperparathyroidism (HCC) Hypertension Hypothyroidism Malaise and fatigue Morbid obesity (HCC) Muscle weakness Nevus, non-neoplastic Pain in limb Pure hypercholesterolemia RLS (restless legs syndrome) Type 2 diabetes mellitus (HCC) Varicella PAST SURGICAL HISTORY: Past Surgical History: Procedure Laterality Date ABDOMINAL SURGERY mid s APPENDECTOMY CHOLECYSTECTOMY COLONOSCOPY 06/19/2008 EYE SURGERY early LUNG REMOVAL, PARTIAL ROTATOR CUFF REPAIR TONSILLECTOMY FAMILY HISTORY: Family History Problem Relation Name Age of Onset Mental illness Mother GHANSHYAM COLEY Depression Mother GHANSHYAM COLEY Heart disease Father LATHA COLEY High Blood Pressure Father LATHA COLEY Asthma Father LATHA COLEY Hypertension Father LATHA COLEY Diabetes Brother CATRACHO COLEY SOCIAL HISTORY: TOBACCO: reports that she has never smoked. She has never used smokeless tobacco. ETOH: reports current alcohol use of about 1.0 - 2.0 standard drink of alcohol per week. DRUGS: reports no history of drug use. Medications: Prior to Admission medications Medication Sig Start Date End Date Taking? Authorizing Provider amLODIPine (Norvasc) 10 MG tablet Take 10 mg by mouth daily. 07/15/21 Historical Provider, baclofen (Lioresal) 10 MG tablet Take 1 tablet (10 mg) by mouth daily. 10/04/22 ELSA Arriaza CNP ergocalciferol (Vitamin D-2) 1.25 MG (32862 UT) capsule Take 1 capsule (1.25 mg) by mouth 1 (one) time per week. 07/18/22 ELSA Arriaza CNP Glucose Blood (Blood Glucose Test) strip Test blood sugar 3 times a day.PLEASE FILL FOR TRUE METRIXTEST STRIPS 01/10/22 Historical Provider, hydrOXYzine HCl (Atarax) 25 MG tablet Take 1 tablet (25 mg) by mouth every 8 hours as needed for anxiety. 08/12/22 10/25/22 Shiv Lopez MD insulin aspart (NovoLOG FLEXPEN) 100 UNIT/ML pen Inject 16 Units under the skin. Before meals. 06/24/21 Historical Provider, levothyroxine (Synthroid, Levoxyl) 150 MCG tablet Take 1 tablet (150 mcg) by mouth daily. 10/04/22 01/02/23 ELSA Arriaza CNP lisinopril 40 MG tablet Take 1 tablet by mouth in the morning. 06/28/21 Historical Provider, meloxicam (Mobic) 7.5 MG tablet Take 1 tablet (7.5 mg) by mouth daily. 10/04/22 ELSA Arriaza CNP PARoxetine (Paxil) 20 MG tablet Take 1 tablet by mouth in the morning. 12/27/21 Historical Provider, pramipexole (Mirapex) 1 MG tablet Take 2 tablets (2 mg) by mouth Nightly. 07/26/22 Shiv Lopez MD rosuvastatin (Crestor) 10 MG tablet Take 1 tablet (10 mg) by mouth daily. 06/14/22 ELSA Arriaza CNP zolpidem (Ambien) 10 MG tablet Take 1 tablet (10 mg) by mouth Nightly as needed for sleep. 11/22/22 Shiv Lopez MD albuterol 108 (90 Base) MCG/ACT inhaler Inhale 2 puffs in the morning, at noon, in the evening, andat bedtime. 03/10/22 12/06/22 Historical Provider, @MEDCMED@ ALLERGIES: Allergies Allergen Reactions Codeine Itching Other Percodan Oxycodone Hives Oxycodone-Aspirin Vancomycin Other reaction(s): U REVIEW OF SYSTEMS: No fever, chills, or sweats. Normal appetite and weight. No RODRIGUEZ, visual disturbance, eye pain, jaundice, sore throat or mouth ulcers. No skin rash or itching. No CP, SOB, IRWIN, cough or wheeze. No urinary frequency, urgency, hematuria, or dysuria. No myalgia, arthralgia, or joint swelling. No weakness, numbness, or confusion. GI per HPI. No polyuria, polydipsia, heat or cold intolerance. PHYSICAL EXAM: VS: BP 125/63 Pulse 67 Temp 36.9 C (98.5 F) (Temporal) Resp 17 SpO2 96% There is no height or weight on file to calculate BMI. GENERAL: Pleasant and NAD. HEENT: NCAT, PERRLA, EOMI, Scleral anicteric. CV: RRR, NL S1/S2, no murmurs. LUNGS: CTA b/l. No W/R/R. Abdomen: + BS, soft, non-tender and non-distended. No rebound or guarding. No hernia. Neurologic: A&O x 3, CN II-XII grossly intact. Non-focal. Psych: Normal affect and speech. LABS AND IMAGING: Recent blood work and relevant radiologic and endoscopic studies were reviewed and discussed with the patient. Old records have not been requested. CBC: Recent Labs 12/05/22 1730 12/05/22 1848 12/06/22 0001 12/06/22 0615 WBC 11.6* -- 9.8 -- HGB 12.3 12.2 11.1* 11.3* HCT 37.9 -- 33.4* 34.3* PLT 244 -- 233 -- HEPATIC: Recent Labs 12/05/22 1213 AST 25 ALT 16 BILITOT 0.9 ALKPHOS 107 LIPASE/AMYLASE: Recent Labs 12/05/22 1213 LIPASE 43 LACTATE: No lab exists for component: LACTA BNP: No results for input(s): BNP in the last 72 hours. INR: Recent Labs 12/05/22 1730 12/06/22 0615 INR 1.0 1.0 CTA abdomen pelvis angiogram w and/or wo IV contrast Result Date: 12/05/2022 Patient Name: RADHA SANDOVAL : 1945 [id number] ExamDate/Time: 12/05/2022 15:39 Procedure: CT ABDOMEN PELVIS ANGIOGRAM W AND/OR WO IV CONTRAST OrderingProvider: FULLER AMY Reason For Exam: GI bleed, lower Study: CT abdomen pelvis. INDICATION:GI bleeding COMPARISON:None FINDINGS: Dose reduction was employed with automated exposure control. Imagingof the abdomen and pelvis were performed With and without intravenous contrast 75 mL Isovue-370.. Imaging viewed in multiple planes. Additional imagin-D imaging created and reviewed on independentplatform for better detection of significant pathology. Lung bases:No convincing acute process. Free air: No free air. Bowel: No convincing obstruction or focal inflammation, definite diverticulitis appendicitis or abscess. Diverticulosis noted. Limited, lack of oral contrast.. No extravasation of intravenous contrast into bowel loops. Peritoneal cavity:No convincing acute process. Gallbladder:Absent Liver spleen pancreas kidneys adrenal glands urinary bladder: No convincing acute process or findings to explain symptoms. Left renal cyst. Pelvic structures:No convincing acute process. Vascular:No convincing extravasation of contrast. Retroperitoneum: No adenopathy or acute process. Spine:No convincing acute process of bone, paraspinous soft tissues. Abdominal wall:Ventral hernia fat only. The etiology of the symptoms is not certain. No extravasation of contrast visualized. Report Dictated on Workstation: QUAN Electronically Signed By: Toñito Chandra Electronically Signed Date/Time: 12/05/2022 3:55 PM EDT IMPRESSION: Rectal bleeding - symptoms started Monday, associated with clots, CTA negative except for diverticulosis, Hgb 11.3, no previous colonoscopy; differential includes diverticular bleed vs hemorrhoid vs large polyp/mass RECOMMENDATIONS: Plan for colonoscopy tomorrow Continue clear liquid diet today and prep starting this evening Continue to monitor Hgb closely The benefits, alternatives, and risks of the procedure(s) including (but not exclusive to) pain, bleeding, perforation, infection, nausea, vomiting, aspiration, hypoxia/hypotension/allergic reaction(s) due to sedatives, phlebitis, need for hospitalization, need for transfusions, need for antibiotic therapy, need for surgery, and likelihood of missing a polyp or neoplastic lesion, were explained to the patient/guardian/responsible accompanying adult who is agreeable. documented in this encounterSSelect Medical [facility] Rehabilitation [id number] Emergency department Note* Abby Kahn RN - 12/05/2022 8:30 PM EDT Provided pt with water and nomi Kahn RN 12/05/222200 [id number] Emergency department Note* Abby Kahn RN - 12/05/2022 8:30 PM EDT Provided pt with water and jenniello Abby Kahn RN 12/05/222200 * Abby Kahn RN - 12/05/2022 6:[address] Velarde notified pt has filled x 3 bedpan with bloody stools and clots Abby Kahn RN 12/05/22 1812 * Abby Kahn RN - 12/05/2022 5:10 PM EDT Ashley BARRAZA) made aware that pt has had 2 large bloody BM's at this point Abby Kahn RN 12/05/22 1733 * Abby Kahn RN - 12/05/2022 4:58 PM EDT Pt had large bloody BM Abby Kahn RN 12/05/22 1658 * Abby Kahn RN - 12/05/2022 2:[address] stated they were unable to use US IV that was placed in R AC. AS400 CONSULTANT called to place a new IV Abby Kahn RN 12/05/22 1403 * ANASTASIA Molina - 12/05/2022 10:43 AM EDT [facility] ED eMERGENCY dEPARTMENT eNCOUnter Pt Name: Radha Sandoval Birthdate 1945 Date of evaluation: 12/05/2022 Provider: ANASTASIA MOLIAN CHIEF COMPLAINT Chief Complaint Patient presents with Black or Bloody Stool HISTORY OF PRESENT ILLNESS (Location/Symptom, Timing/Onset,Context/Setting, Quality, Duration, Modifying Factors, Severity) Note limiting factors. LEONILA Sandoval is a 77 y.o. female who presents to the emergency department stating that she filled thetoilet with bright red blood and some small clots while having a bowel movement this morning. She denies any abdominal pain. She had no history of GI bleed or diverticulitis. She has a remote historyof cholecystectomy. She states she urinated this morning normally. Nursing Notes were reviewed. REVIEW OF SYSTEMS (2+ for4; 10+ for level 5) Review of Systems Constitutional: Negative for chills and fever. HENT: Negative for ear pain and sore throat. Eyes: Negative for pain and visual disturbance. Respiratory: Negative for cough and shortness of breath. Cardiovascular: Negative for chest pain and palpitations. Gastrointestinal: Positive for blood in stool. Negative for abdominal pain and vomiting. Genitourinary: Negative for dysuria and hematuria. Musculoskeletal: Negative for arthralgias and back pain. Skin: Negative for color change and rash. Neurological: Negative for seizures and syncope. All other systems reviewed and are negative. PAST MEDICAL HISTORY Past Medical History: Diagnosis Date Allergic Anxiety Arthritis Asthma Candidiasis of vulva and vagina CKD (chronic kidney disease) Depression Dietary counseling and surveillance Hyperlipidemia Hyperparathyroidism (HCC) Hypertension Hypothyroidism Malaise and fatigue Morbid obesity (HCC) Muscle weakness Nevus, non-neoplastic Pain in limb Pure hypercholesterolemia RLS (restless legs syndrome) Type 2 diabetes mellitus (HCC) Varicella SURGICALHISTORY Past Surgical History: Procedure Laterality Date ABDOMINAL SURGERY mid 80's APPENDECTOMY CHOLECYSTECTOMY COLONOSCOPY 06/19/2008 EYE SURGERY early LUNG REMOVAL, PARTIAL ROTATOR CUFF REPAIR TONSILLECTOMY CURRENT MEDICATIONS Previous Medications ALBUTEROL 108 (90 BASE) MCG/ACT INHALER Inhale 2 puffs in the morning, at noon, in the evening, andat bedtime. AMLODIPINE (NORVASC) 10 MG TABLET Take 10 mg by mouth daily. BACLOFEN (LIORESAL) 10 MG TABLET Take 1 tablet (10 mg) by mouth daily. ERGOCALCIFEROL (VITAMIN D-2) 1.25 MG (16376 UT) CAPSULE Take 1 capsule (1.25 mg) by mouth 1 (one) time per week. GLUCOSE BLOOD (BLOOD GLUCOSE TEST) STRIP Test blood sugar 3 times a day.PLEASE FILL FOR TRUE METRIXTEST STRIPS HYDROXYZINE HCL (ATARAX) 25 MG TABLET Take 1 tablet (25 mg) by mouth every 8 hours as needed for anxiety. INSULIN ASPART (NOVOLOG FLEXPEN) 100 UNIT/ML PEN Inject 16 Units under the skin. Before meals. LEVOTHYROXINE (SYNTHROID, LEVOXYL) 150 MCG TABLET Take 1 tablet (150 mcg) by mouth daily. LISINOPRIL 40 MG TABLET Take 1 tablet by mouth in the morning. MELOXICAM (MOBIC) 7.5 MG TABLET Take 1 tablet (7.5 mg) by mouth daily. PAROXETINE (PAXIL) 20 MG TABLET Take 1 tablet by mouth in the morning. PRAMIPEXOLE (MIRAPEX) 1 MG TABLET Take 2 tablets (2 mg) by mouth Nightly. ROSUVASTATIN (CRESTOR) 10 MG TABLET Take 1 tablet (10 mg) by mouth daily. ZOLPIDEM (AMBIEN) 10 MG TABLET Take 1 tablet (10 mg) by mouth Nightly as needed for sleep. Codeine, Other, Oxycodone, Oxycodone-aspirin, and Vancomycin FAMILY HISTORY Family History Problem Relation Name Age of Onset Mental illness Mother GHANSHYAM COLEY Depression Mother GHANSHYAM COLEY Heart disease Father LATHA COLEY High Blood Pressure Father LATHA COLEY Asthma Father LATHA COLEY Hypertension Father LATHA COLEY Diabetes Brother CATRACHO VIANCA SOCIAL HISTORY Social History Socioeconomic History Marital status: Tobacco Use Smoking status: Never Smokeless tobacco: Never Substance and Sexual Activity Alcohol use: Yes Alcohol/week: 1.0 - 2.0 standard drink of alcohol Types: 1 - 2 Standard drinks or equivalent per week Comment: social Drug use: Never Sexual activity: Not Currently Partners: Male control/protection: None Comment: W/ UNTIL HIS ADMITTANCE TO SHELTER Social Determinants of Health Financial Resource Strain: High Risk (04/26/2022) Overall Financial Resource Strain (CARDIA) Difficulty of Paying Living Expenses: Hard Food Insecurity: No Food Insecurity (04/26/2022) Hunger Vital Sign Worried About Running Out of Food in the Last Year: Never true Ran Out of Food in the Last Year: Never true Transportation Needs: No Transportation Needs (04/26/2022) PRAPARE - Transportation Lack of Transportation (Medical): No Lack of Transportation (Non-Medical): No SCREENINGS PHYSICAL EXAM (5+ for level 4, 8+ for level 5) @EDTRIAGEVSS@ Physical Exam Vitals and nursing note reviewed. Constitutional: General: She is not in acute distress. Appearance: Normal appearance. She is well-developed. HENT: Head: Normocephalic and atraumatic. Eyes: Conjunctiva/sclera: Conjunctivae normal. Cardiovascular: Rate and Rhythm: Normal rate and regular rhythm. Heart sounds: No murmur heard. Pulmonary: Effort: Pulmonary effort is normal. No respiratory distress. Breath sounds: Normal breath sounds. Abdominal: General: Abdomen is flat. Bowel sounds are normal. There is no distension. Palpations: Abdomen is soft. Tenderness: There is no abdominal tenderness. Musculoskeletal: General: No swelling. Skin: General: Skin is warm and dry. Neurological: Mental Status: She is alert. Psychiatric: Mood and Affect: Mood normal. Behavior: Behavior normal. DIAGNOSTIC RESULTS EKG (Per Emergency Physician): RADIOLOGY (Per EmergencyPhysician): Interpretation per the Radiologist below, if available at the time of this note: @EDRISRSLT@ : Labs Reviewed CBC WITH AUTO DIFFERENTIAL - Abnormal Result Value Auto WBC 12.5 (*) RBC 4.37 Hemoglobin 12.9 Hematocrit 39.3 MCV 89.8 MCH 29.5 MCHC 32.8 RDW 13.9 Platelets 271 MPV 8.6 nRBC 0.1 Neutrophils Relative 75.4 Lymphocytes Relative 14.3 (*) Monocytes Relative 7.6 Eosinophils Relative 2.0 Basophils Relative 0.7 Neutrophils Absolute 9.4 (*) Lymphocytes Absolute 1.8 Monocytes Absolute 1.0 (*) Eosinophils Absolute 0.2 Basophils Absolute 0.1 BASIC METABOLIC PANEL - Abnormal SODIUM 136 POTASSIUM 4.0 CHLORIDE 102 CARBON DIOXIDE 29 UREA NITROGEN 26 (*) CREATININE 0.91 GLUCOSE 260 (*) CALCIUM 8.7 ANION GAP 5 eGFR 64.3 CBC (HEMOGRAM) - Abnormal Auto WBC 11.6 (*) RBC 4.21 Hemoglobin 12.3 Hematocrit 37.9 MCV 90.1 MCH 29.2 MCHC 32.4 RDW 13.7 Platelets 244 MPV 8.3 POCT GLUCOSE METER UNSOLICITED RESULTS - Abnormal Glucose 215 (*) Narrative: Performed by: Rogelio Montero [facility], [address] [place] [id number] CLIA ID: [id number] HEPATIC FUNCTION PANEL - Normal BILIRUBIN, TOTAL 0.9 BILIRUBIN, DIRECT 0.0 ALKALINE PHOSPHATASE 107 AST (SGOT) 25 ALT 16 ALBUMIN 4.0 TOTAL PROTEIN 7.2 LIPASE - Normal LIPASE 43 BLOOD TYPE AND SCREEN GEL PROTIME & APTT All other labs were within normal range or not returned as of this dictation. EMERGENCY DEPARTMENT COURSE and DIFFERENTIALDIAGNOSIS/MDM: Vitals: Vitals: 12/05/22 1052 12/05/22 1400 12/05/22 1655 BP: (!) 169/91 (!) 162/77 (!) 142/126 BP Location: Right arm Patient Position: Sitting Pulse: 84 83 74 Resp: 14 20 16 Temp: 36.9 C (98.5 F) TempSrc: Temporal SpO2: 100% 97% 98% Medications glucose oral gel 15 g (has no administration in time range) dextrose 50 % solution 12.5 g (has no administration in time range) glucagon (human recombinant) injection 1 mg (has no administration in time range) dextrose 5 % infusion (has no administration in time range) iopamidol (Isovue-370) 76 % injection 75 mL (75 mL IntraVENous Given 12/05/22 1538) Medical Decision Making Problems Addressed: Acute lower GI bleeding: complicated acute illness or injury Amount and/or Complexity of Data Reviewed Labs: ordered. Radiology: ordered. Risk OTC drugs. Prescription drug management. Decision regarding hospitalization. Patient presents to the emergency department complaining of rectal bleeding. Patient states she filled the toilet with bright red blood and small clots. She denies any abdominal pain. She denies any fevers. She has a remote history of cholecystectomy. Differential diagnosis is GI bleed, hemorrhoid, anal fissure, diverticulitis Chronic conditions impacting care: None Social determinants affecting health: None ED diagnostics included a BMP with a sodium of 136 and potassium 4.0. Glucose 260. Serum lipase within normal limits as well as a hepatic function studies. Initial CBC has a white count of 12.5 with a hemoglobin of 12.9. Repeat CBC later in the visit showed a hemoglobin of 12.3. CTA of the abdomen and pelvis, per radiologist review, showed no acute findings. Type and screen is pending at the timeof this dictation. The patient presents with bright red rectal bleeding here in the emergency department. She had multiple episodes of bright red bleeding from the rectum throughout her emergency department stay. I did discuss this case with Dr. Durbin and patient will be admitted to the hospital the general medical floor for further evaluation and probable GI consult. Patient is agreeable with this plan. CONSULTS: None PROCEDURES: Unless otherwise noted below, none Procedures Patients symptoms are consistent with sepsis, severe sepsis, or septic shock (If yes use .sepsiscoremeasure): No FINAL IMPRESSION 1. Acute lower GI bleeding DISPOSITION/PLAN DISPOSITION Admit 12/05/2022 04:29:20 PM PATIENT REFERRED TO: No follow-up provider specified. DISCHARGE MEDICATIONS: New Prescriptions No medications on file @[facility]([id number]:LAST:1)@ (Please note: Portions of this note were completed with a voice recognition program. Efforts were made to edit thedictations but occasionally words and phrases are mis-transcribed.) Form [id number].[id number] ANASTASIA MOLINA (electronically signed) Emergency Medicine Provider ANASTASIA Molina 12/05/22 1748 * Anusha Velarde MD - 12/05/2022 10:43 AM EDT Emergency Department Encounter [facility] ED Patient: Radha Sandoval : 1945 Date of Evaluation: 12/05/2022 ED Supervising Physician: ANUSHA VELARDE MD This will serve as my Supervisory note and shared attestation. I performed a substantive portion ofthe visit including all aspects of the Medical Decision Making. I independently examined and evaluated Radha Sandoval. In brief, 77 y.o. female presents to the emergency room for evaluation of GI bleeding. Began this morning. She denies use of blood thinners. She denies abdominal pain with this. This is never happened before. Focused exam: She is laying in bed in no acute distress. No skin pallor. Skin is warm and dry. No pallor of the palpebral conjunctivae. Abdomen is soft and nontender. Brief ED course/MDM: The patient presented with a chief complaint of bright red blood per rectum. RN reports that patient has past a fair amount of frankly bloody stool while in the ED. No evidence of anemia or thrombocytopenia on her check of CBC. Hepatic panel is unremarkable. A CTA abd pel was ordered by the [facility] showing no acute pathology. We will plan for admission for likely colonoscopy, H&H trending. Diagnostic tests considered but not performed: coags ED medications managed: Medications glucose oral gel 15 g (has no administration in time range) dextrose 50 % solution 12.5 g (has no administration in time range) glucagon (human recombinant) injection 1 mg (has no administration in time range) dextrose 5 % infusion (has no administration in time range) iopamidol (Isovue-370) 76 % injection 75 mL (75 mL IntraVENous Given 12/05/22 1538) ED Course as of 12/05/221851 Mon Dec 05, [id number] I assessed the patient after nurse reported she is passing large BMs filled with blood. No change in her exam. Her H&H are still normal. Coags are normal. VS are unremarkable. I messaged and made him aware. [AK] ED Course User Index [AK] Anusha Velarde MD Diagnoses as of 12/05/221851 Acute lower GI bleeding I made all treatment and disposition decisions in conjunction with the [facility]. For all further detailsof the patient's emergency department visit, please see their documentation. MD Anusha Huerta MD 12/05/22 1638 Anusha Velarde MD 12/05/221851 * Maday Borja RN - 12/05/2022 10:43 AM EDT Pt reports bright red blood with blood clots in her brief this AM, denies use of blood thinners or hx of GI bleed. documented in this [facility]06-19-2023 Nurse Note* Sis Archibald RN - 12/05/2022 8:[address] Durbin requesting 18g U/S IV placed d/t GIB. No suitable options for an 18g PIV to be placed at this time. Pt also refusing for Left arm to be used. Dr. Hammer notified. [id number] Nurse Note* Sis Archibald RN - 12/05/2022 8:[address] Durbin requesting 18g U/S IV placed d/t GIB. No suitable options for an 18g PIV to be placed at this time. Pt also refusing for Left arm to be used. Dr. Hammer notified. documented in this [facility]06-19-2023 Emergency department Note* Abby Kahn RN - 12/05/2022 6:[address] Velared notified pt has filled x 3 bedpan with bloody stools and clots Abby Kahn RN 12/05/22 1812 [id number] Emergency [facility] Note* Abby Kahn RN - 12/05/2022 5:10 PM EDT Ashley (ANASTASIA) made aware that pt has had 2 large bloody BM's at this point Abby Kahn RN 12/05/22 1733 [facility] [id number] History and physical note* Bertram Durbin MD - 12/05/2022 4:59 PM EDT Images from the original note were not included. Attending History and Physical Admit Date: 12/05/2022 PCP: Shiv Lopez MD CHIEF COMPLAINT: Bloody bowel movement Reason for Admission: Suspected lower GI bleed. Hypertension. Hyperglycemia History Obtained From: patient HISTORY OF PRESENT ILLNESS: Radha is a 77 y.o. female with significant past medical history of hypertension, hyperlipidemia, insulin-dependent diabetes mellitus, depression/anxiety Came to the emergency room complaining of bright red bloody bowel movements, she also noticed some blood clots, sudden onset, denies any abdominal pain nausea or vomitings, denies any fever chills orrigors, denies taking any blood thinners. Initial work-up in the emergency room unremarkable. Admitting patient for further management. Past Medical History: Past Medical History: Diagnosis Date Allergic Anxiety Arthritis Asthma Candidiasis of vulva and vagina CKD (chronic kidney disease) Depression Dietary counseling and surveillance Hyperlipidemia Hyperparathyroidism (HCC) Hypertension Hypothyroidism Malaise and fatigue Morbid obesity (HCC) Muscle weakness Nevus, non-neoplastic Pain in limb Pure hypercholesterolemia RLS (restless legs syndrome) Type 2 diabetes mellitus (HCC) Varicella Past Surgical History: Past Surgical History: Procedure Laterality Date ABDOMINAL SURGERY mid 80's APPENDECTOMY CHOLECYSTECTOMY COLONOSCOPY 06/19/2008 EYE SURGERY early LUNG REMOVAL, PARTIAL ROTATOR CUFF REPAIR TONSILLECTOMY Social History: Social History Socioeconomic History Marital status: Spouse name: Not on file Number of children: Not on file Years of education: Not on file Highest education level: Not on file Occupational History Not on file Tobacco Use Smoking status: Never Smokeless tobacco: Never Substance and Sexual Activity Alcohol use: Yes Alcohol/week: 1.0 - 2.0 standard drink of alcohol Types: 1 - 2 Standard drinks or equivalent per week Comment: social Drug use: Never Sexual activity: Not Currently Partners: Male control/protection: None Comment: W/ UNTIL HIS ADMITTANCE TO SHELTER Other Topics Concern Not on file Social History Narrative Not on file Social Determinants of Health Financial Resource Strain: High Risk (04/26/2022) Overall Financial Resource Strain (CARDIA) Difficulty of Paying Living Expenses: Hard Food Insecurity: No Food Insecurity (04/26/2022) Hunger Vital Sign Worried About Running Out of Food in the Last Year: Never true Ran Out of Food in the Last Year: Never true Transportation Needs: No Transportation Needs (04/26/2022) PRAPARE - Transportation Lack of Transportation (Medical): No Lack of Transportation (Non-Medical): No Physical Activity: Not on file Stress: Not on file Social Connections: Not on file Intimate Partner Violence: Not on file Housing Stability: Not on file Family History: Family History Problem Relation Name Age of Onset Mental illness Mother GHANSHYAM COLEY Depression Mother GHANSHYAM COLEY Heart disease Father LATHA COLEY High Blood Pressure Father LATHA COLEY Asthma Father LATHA COLEY Hypertension Father LATHA COLEY Diabetes Brother CATRACHO COLEY Medications Prior to Admission: No current facility-administered medications on file prior to encounter. Current Outpatient Medications on File Prior to Encounter Medication Sig Dispense Refill albuterol 108 (90 Base) MCG/ACT inhaler Inhale 2 puffs in the morning, at noon, in the evening, andat bedtime. amLODIPine (Norvasc) 10 MG tablet Take 10 mg by mouth daily. baclofen (Lioresal) 10 MG tablet Take 1 tablet (10 mg) by mouth daily. 30 tablet 0 ergocalciferol (Vitamin D-2) 1.25 MG (16457 UT) capsule Take 1 capsule (1.25 mg) by mouth 1 (one) time per week. 90 capsule 1 Glucose Blood (Blood Glucose Test) strip Test blood sugar 3 times a day.PLEASE FILL FOR TRUE METRIXTEST STRIPS hydrOXYzine HCl (Atarax) 25 MG tablet Take 1 tablet (25 mg) by mouth every 8 hours as needed for anxiety. 90 tablet 0 insulin aspart (NovoLOG FLEXPEN) 100 UNIT/ML pen Inject 16 Units under the skin. Before meals. levothyroxine (Synthroid, Levoxyl) 150 MCG tablet Take 1 tablet (150 mcg) by mouth daily. 30 tablet1 lisinopril 40 MG tablet Take 1 tablet by mouth in the morning. meloxicam (Mobic) 7.5 MG tablet Take 1 tablet (7.5 mg) by mouth daily. 30 tablet 0 PARoxetine (Paxil) 20 MG tablet Take 1 tablet by mouth in the morning. pramipexole (Mirapex) 1 MG tablet Take 2 tablets (2 mg) by mouth Nightly. 60 tablet 2 rosuvastatin (Crestor) 10 MG tablet Take 1 tablet (10 mg) by mouth daily. 90 tablet 1 zolpidem (Ambien) 10 MG tablet Take 1 tablet (10 mg) by mouth Nightly as needed for sleep. 30 tablet 0 Allergies: Allergies Allergen Reactions Codeine Itching Other Percodan Oxycodone Hives Oxycodone-Aspirin Vancomycin Other reaction(s): U REVIEW OF SYSTEMS: Constitutional: Negative for fever, chills, activity change and unexpected weight change. HEENT: Negative for congestion, postnasal drip and sneezing. Eyes: Negative for itching and visual disturbance. Respiratory: Negative for apnea, cough, choking, chest tightness, shortness of breath, wheezing andstridor. Cardiovascular: Negative for chest pain. Gastrointestinal: Positive for bloody bowel movements Genitourinary: Negative for dysuria, frequency and flank pain. Musculoskeletal: Negative for myalgias and joint swelling. Skin: Negative for rash. Neurological: Negative for dizziness, tremors, seizures, syncope, facial asymmetry, speech difficulty, weakness, numbness and headaches. Hematological: Negative for adenopathy. Psychiatric/Behavioral: Negative for suicidal ideas, behavioral problems, self- injury and dysphoricmood. Vitals: BP (!) 142/126 Pulse 74 Temp 36.9 C (98.5 F) (Temporal) Resp 16 SpO2 98% BMI Classification: Obese (BMI 30.0-39.9) Pulse Ox: SpO2 Av.3 % Min: 97 % Max: 100 % Supplemental O2: PHYSICAL EXAM: Physical Exam General: Alert, no distress Neck: Supple HEENT: Normocephalic, atraumatic, pupils equal react light Heart: S1-S2 heard, no murmurs gallops regurgitation Lungs: Clear to auscultation bilaterally no wheezing rales or rhonchi Abdomen: Nondistended, nontender, bowel sounds are present Extremities: No edema Neuro: No focal deficits DATA: CBC: Recent Labs 12/05/22 1130 WBC 12.5* RBC 4.37 HGB 12.9 HCT 39.3 MCV 89.8 RDW 13.9 PLT 271 BMP: Recent Labs 12/05/22 1213 NA 136 K 4.0 CL 102 CO2 29 BUN 26* CREATININE 0.91 GLUCOSE 260* CALCIUM 8.7 ANIONGAP 5 LIVER PROFILE: Recent Labs 12/05/22 1213 AST 25 ALT 16 BILITOT 0.9 ALKPHOS 107 PROT 7.2 PT/INR: No results for input(s): PROTIME, INR in the last 72 hours. CARDIAC ENZYMES: No results for input(s): TROPONINI in the last 72 hours. Procalcitonin: No results found for: PROCAL Urine Culture: Results for orders placed or performed in visit on 10/04/22 Urine culture (clean catch) Specimen: Urine, Clean Catch Result Value Ref Range Urine Culture SEE NOTE COVID-19 PCR: No results for input(s): COVID19 in the last 72 hours. I reviewed: [x] laboratory results [x] radiographic results At the time of today's encounter. Pt was advised of the results. IMPRESSION: Suspected lower GI bleeding. Uncontrolled hyperglycemia/type 2 diabetes mellitus with Hypertension Leukocytosis. History of: Diabetes mellitus type 2. Hyperlipidemia. Depression/anxiety Hypothyroidism. Medical Decision Making: Patient presented with 2 large bloody bowel movements. Work-up in the emergency room unremarkable hemoglobin is stable. N.p.o., IV fluids, hemoglobin check every 6 hours. Gastroenterology consult placed. Leukocytosis most likely reactive, follow-up CBC ordered. Blood pressure running high in 160s systolic, resumed home medications added as needed hydralazine. Continuing insulin bridging, added sliding scale. -Discussed with ED provider and agree with their plan for admission -PT/OT eval/increase activity -am labs, replace lytes prn -vitals per routine -home meds as ordered -DVT prophylaxis: [] Lovenox [] Heparin [] SCDs [x] Encourage ambulation [] Already on Anticoagulation Anticipated Discharge - Date -2 to 3 days - Location - Home - Pending the following -GI consult Total time spent (which include face to face and non face to face encounters) : 35 minutes Toxic drug monitoring/narrow therapeutic index drug monitoring : # Drug name : # Route administered : # Method of monitoring : Extended Emergency Contact Information Primary Emergency Contact: Angel Roger Address: [address] [place] Relation: Child Code status: No Order -see below for additional orders, further recommendations to follow Orders Placed This Encounter Procedures CTA abdomen pelvis angiogram w and/or wo IV contrast CBC auto differential Basic metabolic panel Hepatic function panel Lipase Pulse Oximetry Vital Signs HYPOGLYCEMIA TREATMENT: blood glucose less than 50 mg/dL and patient ALERT and TOLERATING PO HYPOGLYCEMIA TREATMENT: blood glucose less than 70 mg/dL and patient NOT ALERT or NPO Insert peripheral IV Admit to inpatient Please forward a copy of this H&P to the patient's PCP. Thank you. [employer] Work Phone: [phone] History and physical note* Bertram Durbin MD - 12/05/2022 4:59 PM EDT Images from the original note were not included. Attending History and Physical Admit Date: 12/05/2022 PCP: Shiv Lopez MD CHIEF COMPLAINT: Bloody bowel movement Reason for Admission: Suspected lower GI bleed. Hypertension. Hyperglycemia History Obtained From: patient HISTORY OF PRESENT ILLNESS: Radha is a 77 y.o. female with significant past medical history of hypertension, hyperlipidemia, insulin-dependent diabetes mellitus, depression/anxiety Came to the emergency room complaining of bright red bloody bowel movements, she also noticed some blood clots, sudden onset, denies any abdominal pain nausea or vomitings, denies any fever chills orrigors, denies taking any blood thinners. Initial work-up in the emergency room unremarkable. Admitting patient for further management. Past Medical History: Past Medical History: Diagnosis Date Allergic Anxiety Arthritis Asthma Candidiasis of vulva and vagina CKD (chronic kidney disease) Depression Dietary counseling and surveillance Hyperlipidemia Hyperparathyroidism (HCC) Hypertension Hypothyroidism Malaise and fatigue Morbid obesity (HCC) Muscle weakness Nevus, non-neoplastic Pain in limb Pure hypercholesterolemia RLS (restless legs syndrome) Type 2 diabetes mellitus (HCC) Varicella Past Surgical History: Past Surgical History: Procedure Laterality Date ABDOMINAL SURGERY mid 80's APPENDECTOMY CHOLECYSTECTOMY COLONOSCOPY 06/19/2008 EYE SURGERY early s LUNG REMOVAL, PARTIAL ROTATOR CUFF REPAIR TONSILLECTOMY Social History: Social History Socioeconomic History Marital status: Spouse name: Not on file Number of children: Not on file Years of education: Not on file Highest education level: Not on file Occupational History Not on file Tobacco Use Smoking status: Never Smokeless tobacco: Never Substance and Sexual Activity Alcohol use: Yes Alcohol/week: 1.0 - 2.0 standard drink of alcohol Types: 1 - 2 Standard drinks or equivalent per week Comment: social Drug use: Never Sexual activity: Not Currently Partners: Male control/protection: None Comment: W/ UNTIL HIS ADMITTANCE TO SHELTER Other Topics Concern Not on file Social History Narrative Not on file Social Determinants of Health Financial Resource Strain: High Risk (04/26/2022) Overall Financial Resource Strain (CARDIA) Difficulty of Paying Living Expenses: Hard Food Insecurity: No Food Insecurity (04/26/2022) Hunger Vital Sign Worried About Running Out of Food in the Last Year: Never true Ran Out of Food in the Last Year: Never true Transportation Needs: No Transportation Needs (04/26/2022) PRAPARE - Transportation Lack of Transportation (Medical): No Lack of Transportation (Non-Medical): No Physical Activity: Not on file Stress: Not on file Social Connections: Not on file Intimate Partner Violence: Not on file Housing Stability: Not on file Family History: Family History Problem Relation Name Age of Onset Mental illness Mother GHANSHYAM COLEY Depression Mother GHANSHYAM COLEY Heart disease Father LATHA COLEY High Blood Pressure Father LATHA COLEY Asthma Father LATHA COLEY Hypertension Father LATHA COLEY Diabetes Brother CATRACHO COLEY Medications Prior to Admission: No current facility-administered medications on file prior to encounter. Current Outpatient Medications on File Prior to Encounter Medication Sig Dispense Refill albuterol 108 (90 Base) MCG/ACT inhaler Inhale 2 puffs in the morning, at noon, in the evening, andat bedtime. amLODIPine (Norvasc) 10 MG tablet Take 10 mg by mouth daily. baclofen (Lioresal) 10 MG tablet Take 1 tablet (10 mg) by mouth daily. 30 tablet 0 ergocalciferol (Vitamin D-2) 1.25 MG (91752 UT) capsule Take 1 capsule (1.25 mg) by mouth 1 (one) time per week. 90 capsule 1 Glucose Blood (Blood Glucose Test) strip Test blood sugar 3 times a day.PLEASE FILL FOR TRUE METRIXTEST STRIPS hydrOXYzine HCl (Atarax) 25 MG tablet Take 1 tablet (25 mg) by mouth every 8 hours as needed for anxiety. 90 tablet 0 insulin aspart (NovoLOG FLEXPEN) 100 UNIT/ML pen Inject 16 Units under the skin. Before meals. levothyroxine (Synthroid, Levoxyl) 150 MCG tablet Take 1 tablet (150 mcg) by mouth daily. 30 tablet1 lisinopril 40 MG tablet Take 1 tablet by mouth in the morning. meloxicam (Mobic) 7.5 MG tablet Take 1 tablet (7.5 mg) by mouth daily. 30 tablet 0 PARoxetine (Paxil) 20 MG tablet Take 1 tablet by mouth in the morning. pramipexole (Mirapex) 1 MG tablet Take 2 tablets (2 mg) by mouth Nightly. 60 tablet 2 rosuvastatin (Crestor) 10 MG tablet Take 1 tablet (10 mg) by mouth daily. 90 tablet 1 zolpidem (Ambien) 10 MG tablet Take 1 tablet (10 mg) by mouth Nightly as needed for sleep. 30 tablet 0 Allergies: Allergies Allergen Reactions Codeine Itching Other Percodan Oxycodone Hives Oxycodone-Aspirin Vancomycin Other reaction(s): U REVIEW OF SYSTEMS: Constitutional: Negative for fever, chills, activity change and unexpected weight change. HEENT: Negative for congestion, postnasal drip and sneezing. Eyes: Negative for itching and visual disturbance. Respiratory: Negative for apnea, cough, choking, chest tightness, shortness of breath, wheezing andstridor. Cardiovascular: Negative for chest pain. Gastrointestinal: Positive for bloody bowel movements Genitourinary: Negative for dysuria, frequency and flank pain. Musculoskeletal: Negative for myalgias and joint swelling. Skin: Negative for rash. Neurological: Negative for dizziness, tremors, seizures, syncope, facial asymmetry, speech difficulty, weakness, numbness and headaches. Hematological: Negative for adenopathy. Psychiatric/Behavioral: Negative for suicidal ideas, behavioral problems, self- injury and dysphoricmood. Vitals: BP (!) 142/126 Pulse 74 Temp 36.9 C (98.5 F) (Temporal) Resp 16 SpO2 98% BMI Classification: Obese (BMI 30.0-39.9) Pulse Ox: SpO2 Av.3 % Min: 97 % Max: 100 % Supplemental O2: PHYSICAL EXAM: Physical Exam General: Alert, no distress Neck: Supple HEENT: Normocephalic, atraumatic, pupils equal react light Heart: S1-S2 heard, no murmurs gallops regurgitation Lungs: Clear to auscultation bilaterally no wheezing rales or rhonchi Abdomen: Nondistended, nontender, bowel sounds are present Extremities: No edema Neuro: No focal deficits DATA: CBC: Recent Labs 12/05/22 1130 WBC 12.5* RBC 4.37 HGB 12.9 HCT 39.3 MCV 89.8 RDW 13.9 PLT 271 BMP: Recent Labs 12/05/22 1213 NA 136 K 4.0 CL 102 CO2 29 BUN 26* CREATININE 0.91 GLUCOSE 260* CALCIUM 8.7 ANIONGAP 5 LIVER PROFILE: Recent Labs 12/05/22 1213 AST 25 ALT 16 BILITOT 0.9 ALKPHOS 107 PROT 7.2 PT/INR: No results for input(s): PROTIME, INR in the last 72 hours. CARDIAC ENZYMES: No results for input(s): TROPONINI in the last 72 hours. Procalcitonin: No results found for: PROCAL Urine Culture: Results for orders placed or performed in visit on 10/04/22 Urine culture (clean catch) Specimen: Urine, Clean Catch Result Value Ref Range Urine Culture SEE NOTE COVID-19 PCR: No results for input(s): COVID19 in the last 72 hours. I reviewed: [x] laboratory results [x] radiographic results At the time of today's encounter. Pt was advised of the results. IMPRESSION: Suspected lower GI bleeding. Uncontrolled hyperglycemia/type 2 diabetes mellitus with Hypertension Leukocytosis. History of: Diabetes mellitus type 2. Hyperlipidemia. Depression/anxiety Hypothyroidism. Medical Decision Making: Patient presented with 2 large bloody bowel movements. Work-up in the emergency room unremarkable hemoglobin is stable. N.p.o., IV fluids, hemoglobin check every 6 hours. Gastroenterology consult placed. Leukocytosis most likely reactive, follow-up CBC ordered. Blood pressure running high in 160s systolic, resumed home medications added as needed hydralazine. Continuing insulin bridging, added sliding scale. -Discussed with ED provider and agree with their plan for admission -PT/OT eval/increase activity -am labs, replace lytes prn -vitals per routine -home meds as ordered -DVT prophylaxis: [] Lovenox [] Heparin [] SCDs [x] Encourage ambulation [] Already on Anticoagulation Anticipated Discharge - Date -2 to 3 days - Location - Home - Pending the following -GI consult Total time spent (which include face to face and non face to face encounters) : 35 minutes Toxic drug monitoring/narrow therapeutic index drug monitoring : # Drug name : # Route administered : # Method of monitoring : Extended Emergency Contact Information Primary Emergency Contact: Angel Roger Address: [address] [place] Relation: Child Code status: No Order -see below for additional orders, further recommendations to follow Orders Placed This Encounter Procedures CTA abdomen pelvis angiogram w and/or wo IV contrast CBC auto differential Basic metabolic panel Hepatic function panel Lipase Pulse Oximetry Vital Signs HYPOGLYCEMIA TREATMENT: blood glucose less than 50 mg/dL and patient ALERT and TOLERATING PO HYPOGLYCEMIA TREATMENT: blood glucose less than 70 mg/dL and patient NOT ALERT or NPO Insert peripheral IV Admit to inpatient Please forward a copy of this H&P to the patient's PCP. Thank you. documented in this [facility]06-19-2023 Emergency department Note* Abby Kahn RN - 12/05/2022 4:58 PM EDT Pt had large bloody BM Abby Kahn RN 12/05/22 1658 [id number]* Abby Kahn RN - 12/05/2022 2:[address] stated they were unable to use US IV that was placed in R AC. AS400 CONSULTANT called to place a new IV Abby Kahn RN 12/05/22 1403 [id number] Emergency department Triage note* Maday Borja RN - 12/05/2022 10:43 AM EDT Pt reports bright red blood with blood clots in her brief this AM, denies use of blood thinners or hx of GI bleed. [id number] Physician Emergency department Note* ANASTASIA Molina - 12/05/2022 10:43 AM EDT [facility] ED eMERGENCY dEPARTMENT eNCOUnter Pt Name: Radha Sandoval Birthdate 1945 Date of evaluation: 12/05/2022 Provider: ANASTASIA MOLINA CHIEF COMPLAINT Chief Complaint Patient presents with Black or Bloody Stool HISTORY OF PRESENT ILLNESS (Location/Symptom, Timing/Onset,Context/Setting, Quality, Duration, Modifying Factors, Severity) Note limiting factors. HPI Radha Sandoval is a 77 y.o. female who presents to the emergency department stating that she filled thetoilet with bright red blood and some small clots while having a bowel movement this morning. She denies any abdominal pain. She had no history of GI bleed or diverticulitis. She has a remote historyof cholecystectomy. She states she urinated this morning normally. Nursing Notes were reviewed. REVIEW OF SYSTEMS (2+ for4; 10+ for level 5) Review of Systems Constitutional: Negative for chills and fever. HENT: Negative for ear pain and sore throat. Eyes: Negative for pain and visual disturbance. Respiratory: Negative for cough and shortness of breath. Cardiovascular: Negative for chest pain and palpitations. Gastrointestinal: Positive for blood in stool. Negative for abdominal pain and vomiting. Genitourinary: Negative for dysuria and hematuria. Musculoskeletal: Negative for arthralgias and back pain. Skin: Negative for color change and rash. Neurological: Negative for seizures and syncope. All other systems reviewed and are negative. PAST MEDICAL HISTORY Past Medical History: Diagnosis Date Allergic Anxiety Arthritis Asthma Candidiasis of vulva and vagina CKD (chronic kidney disease) Depression Dietary counseling and surveillance Hyperlipidemia Hyperparathyroidism (HCC) Hypertension Hypothyroidism Malaise and fatigue Morbid obesity (HCC) Muscle weakness Nevus, non-neoplastic Pain in limb Pure hypercholesterolemia RLS (restless legs syndrome) Type 2 diabetes mellitus (HCC) Varicella SURGICALHISTORY Past Surgical History: Procedure Laterality Date ABDOMINAL SURGERY mid 80's APPENDECTOMY CHOLECYSTECTOMY COLONOSCOPY 06/19/2008 EYE SURGERY early LUNG REMOVAL, PARTIAL ROTATOR CUFF REPAIR TONSILLECTOMY CURRENT MEDICATIONS Previous Medications ALBUTEROL 108 (90 BASE) MCG/ACT INHALER Inhale 2 puffs in the morning, at noon, in the evening, andat bedtime. AMLODIPINE (NORVASC) 10 MG TABLET Take 10 mg by mouth daily. BACLOFEN (LIORESAL) 10 MG TABLET Take 1 tablet (10 mg) by mouth daily. ERGOCALCIFEROL (VITAMIN D-2) 1.25 MG (60700 UT) CAPSULE Take 1 capsule (1.25 mg) by mouth 1 (one) time per week. GLUCOSE BLOOD (BLOOD GLUCOSE TEST) STRIP Test blood sugar 3 times a day.PLEASE FILL FOR TRUE METRIXTEST STRIPS HYDROXYZINE HCL (ATARAX) 25 MG TABLET Take 1 tablet (25 mg) by mouth every 8 hours as needed for anxiety. INSULIN ASPART (NOVOLOG FLEXPEN) 100 UNIT/ML PEN Inject 16 Units under the skin. Before meals. LEVOTHYROXINE (SYNTHROID, LEVOXYL) 150 MCG TABLET Take 1 tablet (150 mcg) by mouth daily. LISINOPRIL 40 MG TABLET Take 1 tablet by mouth in the morning. MELOXICAM (MOBIC) 7.5 MG TABLET Take 1 tablet (7.5 mg) by mouth daily. PAROXETINE (PAXIL) 20 MG TABLET Take 1 tablet by mouth in the morning. PRAMIPEXOLE (MIRAPEX) 1 MG TABLET Take 2 tablets (2 mg) by mouth Nightly. ROSUVASTATIN (CRESTOR) 10 MG TABLET Take 1 tablet (10 mg) by mouth daily. ZOLPIDEM (AMBIEN) 10 MG TABLET Take 1 tablet (10 mg) by mouth Nightly as needed for sleep. Codeine, Other, Oxycodone, Oxycodone-aspirin, and Vancomycin FAMILY HISTORY Family History Problem Relation Name Age of Onset Mental illness Mother GHANSHYAM VIANCA Depression Mother GHANSHYAM COLEY Heart disease Father LATHA VIANCA High Blood Pressure Father LATHA COLEY Asthma Father LATHA COLEY Hypertension Father LATHA COLEY Diabetes Brother CATRACHO COLEY SOCIAL HISTORY Social History Socioeconomic History Marital status: Tobacco Use Smoking status: Never Smokeless tobacco: Never Substance and Sexual Activity Alcohol use: Yes Alcohol/week: 1.0 - 2.0 standard drink of alcohol Types: 1 - 2 Standard drinks or equivalent per week Comment: social Drug use: Never Sexual activity: Not Currently Partners: Male control/protection: None Comment: W/ UNTIL HIS ADMITTANCE TO SHELTER Social Determinants of Health Financial Resource Strain: High Risk (04/26/2022) Overall Financial Resource Strain (CARDIA) Difficulty of Paying Living Expenses: Hard Food Insecurity: No Food Insecurity (04/26/2022) Hunger Vital Sign Worried About Running Out of Food in the Last Year: Never true Ran Out of Food in the Last Year: Never true Transportation Needs: No Transportation Needs (04/26/2022) PRAPARE - Transportation Lack of Transportation (Medical): No Lack of Transportation (Non-Medical): No SCREENINGS PHYSICAL EXAM (5+ for level 4, 8+ for level 5) @EDTRIAGEVSS@ Physical Exam Vitals and nursing note reviewed. Constitutional: General: She is not in acute distress. Appearance: Normal appearance. She is well-developed. HENT: Head: Normocephalic and atraumatic. Eyes: Conjunctiva/sclera: Conjunctivae normal. Cardiovascular: Rate and Rhythm: Normal rate and regular rhythm. Heart sounds: No murmur heard. Pulmonary: Effort: Pulmonary effort is normal. No respiratory distress. Breath sounds: Normal breath sounds. Abdominal: General: Abdomen is flat. Bowel sounds are normal. There is no distension. Palpations: Abdomen is soft. Tenderness: There is no abdominal tenderness. Musculoskeletal: General: No swelling. Skin: General: Skin is warm and dry. Neurological: Mental Status: She is alert. Psychiatric: Mood and Affect: Mood normal. Behavior: Behavior normal. DIAGNOSTIC RESULTS EKG (Per Emergency Physician): RADIOLOGY (Per EmergencyPhysician): Interpretation per the Radiologist below, if available at the time of this note: @EDRISRSLT@ : Labs Reviewed CBC WITH AUTO DIFFERENTIAL - Abnormal Result Value Auto WBC 12.5 (*) RBC 4.37 Hemoglobin 12.9 Hematocrit 39.3 MCV 89.8 MCH 29.5 MCHC 32.8 RDW 13.9 Platelets 271 MPV 8.6 nRBC 0.1 Neutrophils Relative 75.4 Lymphocytes Relative 14.3 (*) Monocytes Relative 7.6 Eosinophils Relative 2.0 Basophils Relative 0.7 Neutrophils Absolute 9.4 (*) Lymphocytes Absolute 1.8 Monocytes Absolute 1.0 (*) Eosinophils Absolute 0.2 Basophils Absolute 0.1 BASIC METABOLIC PANEL - Abnormal SODIUM 136 POTASSIUM 4.0 CHLORIDE 102 CARBON DIOXIDE 29 UREA NITROGEN 26 (*) CREATININE 0.91 GLUCOSE 260 (*) CALCIUM 8.7 ANION GAP 5 eGFR 64.3 CBC (HEMOGRAM) - Abnormal Auto WBC 11.6 (*) RBC 4.21 Hemoglobin 12.3 Hematocrit 37.9 MCV 90.1 MCH 29.2 MCHC 32.4 RDW 13.7 Platelets 244 MPV 8.3 POCT GLUCOSE METER UNSOLICITED RESULTS - Abnormal Glucose 215 (*) Narrative: Performed by: [facility], [address] [place] [address] [place] [address] CLIA ID: [id number] HEPATIC FUNCTION PANEL - Normal BILIRUBIN, TOTAL 0.9 BILIRUBIN, DIRECT 0.0 ALKALINE PHOSPHATASE 107 AST (SGOT) 25 ALT 16 ALBUMIN 4.0 TOTAL PROTEIN 7.2 LIPASE - Normal LIPASE 43 BLOOD TYPE AND SCREEN GEL PROTIME & APTT All other labs were within normal range or not returned as of this dictation. EMERGENCY DEPARTMENT COURSE and DIFFERENTIALDIAGNOSIS/MDM: Vitals: Vitals: 12/05/22 1052 12/05/22 1400 12/05/22 1655 BP: (!) 169/91 (!) 162/77 (!) 142/126 BP Location: Right arm Patient Position: Sitting Pulse: 84 83 74 Resp: 14 20 16 Temp: 36.9 C (98.5 F) TempSrc: Temporal SpO2: 100% 97% 98% Medications glucose oral gel 15 g (has no administration in time range) dextrose 50 % solution 12.5 g (has no administration in time range) glucagon (human recombinant) injection 1 mg (has no administration in time range) dextrose 5 % infusion (has no administration in time range) iopamidol (Isovue-370) 76 % injection 75 mL (75 mL IntraVENous Given 12/05/22 1538) Medical Decision Making Problems Addressed: Acute lower GI bleeding: complicated acute illness or injury Amount and/or Complexity of Data Reviewed Labs: ordered. Radiology: ordered. Risk OTC drugs. Prescription drug management. Decision regarding hospitalization. Patient presents to the emergency department complaining of rectal bleeding. Patient states she filled the toilet with bright red blood and small clots. She denies any abdominal pain. She denies any fevers. She has a remote history of cholecystectomy. Differential diagnosis is GI bleed, hemorrhoid, anal fissure, diverticulitis Chronic conditions impacting care: None Social determinants affecting health: None ED diagnostics included a BMP with a sodium of 136 and potassium 4.0. Glucose 260. Serum lipase within normal limits as well as a hepatic function studies. Initial CBC has a white count of 12.5 with a hemoglobin of 12.9. Repeat CBC later in the visit showed a hemoglobin of 12.3. CTA of the abdomen and pelvis, per radiologist review, showed no acute findings. Type and screen is pending at the timeof this dictation. The patient presents with bright red rectal bleeding here in the emergency department. She had multiple episodes of bright red bleeding from the rectum throughout her emergency department stay. I did discuss this case with Dr. Durbin and patient will be admitted to the hospital the general medical floor for further evaluation and probable GI consult. Patient is agreeable with this plan. CONSULTS: None PROCEDURES: Unless otherwise noted below, none Procedures Patients symptoms are consistent with sepsis, severe sepsis, or septic shock (If yes use .sepsiscoremeasure): No FINAL IMPRESSION 1. Acute lower GI bleeding DISPOSITION/PLAN DISPOSITION Admit 12/05/2022 04:29:20 PM PATIENT REFERRED TO: No follow-up provider specified. DISCHARGE MEDICATIONS: New Prescriptions No medications on file @[facility]([id number]:LAST:1)@ (Please note: Portions of this note were completed with a voice recognition program. Efforts were made to edit thedictations but occasionally words and phrases are mis-transcribed.) Form [id number] ANASTASIA MOLINA (electronically signed) Emergency Medicine Provider ANASTASIA Molina 12/05/22 1748 [facility] [id number] Physician Emergency department Note* Anusha Velarde MD - 12/05/2022 10:43 AM EDT Emergency Department Encounter [facility] ED Patient: Radha Sandoval : 1945 Date of Evaluation: 12/05/2022 ED Supervising Physician: ANUSHA VELARDE MD This will serve as my Supervisory note and shared attestation. I performed a substantive portion ofthe visit including all aspects of the Medical Decision Making. I independently examined and evaluated Radha Sandoval. In brief, 77 y.o. female presents to the emergency room for evaluation of GI bleeding. Began this morning. She denies use of blood thinners. She denies abdominal pain with this. This is never happened before. Focused exam: She is laying in bed in no acute distress. No skin pallor. Skin is warm and dry. No pallor of the palpebral conjunctivae. Abdomen is soft and nontender. Brief ED course/MDM: The patient presented with a chief complaint of bright red blood per rectum. RN reports that patient has past a fair amount of frankly bloody stool while in the ED. No evidence of anemia or thrombocytopenia on her check of CBC. Hepatic panel is unremarkable. A CTA abd pel was ordered by the [facility] showing no acute pathology. We will plan for admission for likely colonoscopy, H&H trending. Diagnostic tests considered but not performed: coags ED medications managed: Medications glucose oral gel 15 g (has no administration in time range) dextrose 50 % solution 12.5 g (has no administration in time range) glucagon (human recombinant) injection 1 mg (has no administration in time range) dextrose 5 % infusion (has no administration in time range) iopamidol (Isovue-370) 76 % injection 75 mL (75 mL IntraVENous Given 12/05/22 1538) ED Course as of 12/05/221851 Mon Dec 05, 20221815 I assessed the patient after nurse reported she is passing large BMs filled with blood. No change in her exam. Her H&H are still normal. Coags are normal. VS are unremarkable. I messaged and made him aware. [AK] ED Course User Index [AK] Anusha Velarde MD Diagnoses as of 12/05/221851 Acute lower GI bleeding I made all treatment and disposition decisions in conjunction with the [facility]. For all further detailsof the patient's emergency department visit, please see their documentation. MD Anusha Huerta MD 12/05/22 1638 Anusha Velarde MD 12/05/221851 [employer] Phone: [phone] Telephone encounter Note* Telephone Encounter - ELSA Arriaza CNP - 12/05/2022 9:44 AM EDT Noted. Agree with disposition. [id number] Miscellaneous Notes* Telephone Encounter - ELSA Arriaza CNP - 12/05/2022 9:44 AM EDT Noted. Agree with disposition. * Telephone Encounter - Sruthi Burns RN - 12/05/2022 9:22 AM EDT S: Patient spoke with [facility] nurse regarding rectal bleeding. B: Onset of symptoms/concern: started today. A: Pt states she has severe rectal bleeding, started today, bleeding from rectum continuously, states passing clots, states large amount of bleeding. States she has mild dizziness/shakiness at this time. R: Advised to go to the ED now, advised to have someone drive her, states she will go to [facility]. No further needs at this time. Patient instructed to call back with new or worsening symptoms. Advised to call 911 if she worsens or feels like she might pass out. Patient verbalizes understanding. Reason for Disposition SEVERE rectal bleeding (large blood clots; constant or on and off bleeding) Protocols used: Rectal Xgfhyhks-XKYMI-YP documented in this [facility]06-19-2023 Telephone encounter Note* Telephone Encounter - Sruthi Burns RN - 12/05/2022 9:22 AM EDT S: Patient spoke with [facility] nurse regarding rectal bleeding. B: Onset of symptoms/concern: started today. A: Pt states she has severe rectal bleeding, started today, bleeding from rectum continuously, states passing clots, states large amount of bleeding. States she has mild dizziness/shakiness at this time. R: Advised to go to the ED now, advised to have someone drive her, states she will go to [facility]. No further needs at this time. Patient instructed to call back with new or worsening symptoms. Advised to call 911 if she worsens or feels like she might pass out. Patient verbalizes understanding. Reason for Disposition SEVERE rectal bleeding (large blood clots; constant or on and off bleeding) Protocols used: Rectal Pjhvgyrp-DDHCK-AV [facility] [id number] Telephone encounter Note* Telephone Encounter - Mya Foster MA - 10/05/2022 3:55 PM EDT ----- Message from ELSA Arriaza CNP sent at 10/05/2022 3:52 PM EDT ----- Hemoglobin A1c 9- recommend increasing novolog dose by 2 units- (from 14 to 16), send glucose readings to office in 1 week. Notified, can you please update sig? Thanks! [place] [id number] Miscellaneous Notes* Telephone Encounter - Mya Foster MA - 10/05/2022 3:55 PM EDT ----- Message from ELSA Arriaza CNP sent at 10/05/2022 3:52 PM EDT ----- Hemoglobin A1c 9- recommend increasing novolog dose by 2 units- (from 14 to 16), send glucose readings to office in 1 week. Notified, can you please update sig? Thanks! documented in this [facility]02-24-2023 Telephone encounter Note* Telephone Encounter - Stefani Abraham - 08/12/2022 9:38 AM EST Medication name: hydrOXYzine HCl (Atarax) 25 MG tablet 90 tablet 0 07/11/2022 08/10/2022 Sig - Route: Take 1 tablet (25 mg) by mouth every 8 hours as needed for anxiety Patient is out of medication and wants filled today Medication dosage: 25 mg (Miligrams Monthly quantity needed: 90 How many day supply requestin days Medication route: oral (PO) Medication administration time(s): as needed (PRN) If taking medication PRN, reason for taking medication: itching If this is a controlled substance do you receive this or any other controlled medication from any other doctor or facility: N/A Ordering provider: John Date of last office visit: 06.30.22 Date of next office visit: 09.29.22 Date of last refill: (see medication tab): 07.11.22 Updated/Validated preferred pharmacy: Yes Patient instructed to contact the pharmacy prior to picking up the medication: Yes [facility] [id number] Miscellaneous Notes* Telephone Encounter - Stefani Abraham - 08/12/2022 9:38 AM EST Medication name: hydrOXYzine HCl (Atarax) 25 MG tablet 90 tablet 0 07/11/2022 08/10/2022 Sig - Route: Take 1 tablet (25 mg) by mouth every 8 hours as needed for anxiety Patient is out of medication and wants filled today Medication dosage: 25 mg (Miligrams Monthly quantity needed: 90 How many day supply requestin days Medication route: oral (PO) Medication administration time(s): as needed (PRN) If taking medication PRN, reason for taking medication: itching If this is a controlled substance do you receive this or any other controlled medication from any other doctor or facility: N/A Ordering provider: John Date of last office visit: 06.30.22 Date of next office visit: 09.29.22 Date of last refill: (see medication tab): 07.11.22 Updated/Validated preferred pharmacy: Yes Patient instructed to contact the pharmacy prior to picking up the medication: Yes documented in this [facility] [id number] Telephone encounter Note* Telephone Encounter - Shiv Lopez MD - 07/26/2022 8:29 AM EST Rx sent [facility] [id number] Miscellaneous Notes* Telephone Encounter - Shiv Lopez MD - 07/26/2022 8:29 AM EST Rx sent * Addendum Note - Mya Foster MA - 07/26/2022 7:57 AM ESTAddended by: MYA FOSTER on: 07/26/2022 07:57 AM Modules accepted: Orders * Telephone Encounter - September Kushal - 07/26/2022 7:47 AM EST Ordering provider: John Date of last office visit: 06/30/2022 Date of next office visit: 09/29/2022 Updated/Validated preferred pharmacy: yes Patient instructed to contact the pharmacy prior to picking up the medication: no (1) Medication name: mirapex Medication dosage: 1 mg (Miligrams Monthly quantity needed: 60 How many day supply requestin days Medication route: oral (PO) Medication administration time(s): bedtime (HS) If taking medication PRN, reason for taking medication: N/A If this is a controlled substance do you receive this or any other controlled medication from any other doctor or facility: No Date of last refill (see medication tab): 05/03/2022 documented in this [facility]02-07-2023 Note* Addendum Note - Mya Foster MA - 07/26/2022 7:57 AM ESTAddended by: MYA FOSTER on: 07/26/2022 07:57 AM Modules accepted: Orders [facility] [id number] Note* Addendum Note - Mya Foster MA - 07/26/2022 7:57 AM ESTAddended by: MYA FOSTER on: 07/26/2022 07:57 AM Modules accepted: Orders [facility] [id number] Telephone encounter Note* Telephone Encounter - Georgette Fatima - 07/26/2022 7:47 AM EST Ordering provider: John Date of last office visit: 06/30/2022 Date of next office visit: 09/29/2022 Updated/Validated preferred pharmacy: yes Patient instructed to contact the pharmacy prior to picking up the medication: no (1) Medication name: mirapex Medication dosage: 1 mg (Miligrams Monthly quantity needed: 60 How many day supply requestin days Medication route: oral (PO) Medication administration time(s): bedtime (HS) If taking medication PRN, reason for taking medication: N/A If this is a controlled substance do you receive this or any other controlled medication from any other doctor or facility: No Date of last refill (see medication tab): 05/03/2022 [facility] [id number] Telephone encounter Note* Telephone Encounter - ELSA Arriaza CNP - 07/18/2022 9:56 AM EST Reviewed chart. Refill appropriate. RX sent. [facility] SystemYcrmld17-04-3688 Miscellaneous Notes* Telephone Encounter - ELSA Arriaza CNP - 07/18/2022 9:56 AM EST Reviewed chart. Refill appropriate. RX sent. * Telephone Encounter - Magda Lomas - 07/18/2022 9:39 AM EST Prescription Request: Last medication check: 06/30/22 Last physical exam: 04/26/22 Next scheduled appointment: 09/30/22 Last date of refill on this medication 06/14/22 documented in this encounterS[facility] HospitalUgjrlm08-56-6509 Telephone encounter Note* Telephone Encounter - Magda Lomas - 07/18/2022 9:39 AM EST Prescription Request: Last medication check: 06/30/22 Last physical exam: 04/26/22 Next scheduled appointment: 09/30/22 Last date of refill on this medication 06/14/22 [facility] [id number] Telephone encounter Note* Telephone Encounter - Ashley Haider MA - 07/13/2022 1:06 PM EST Attempted to call patient to help her schedule an appt - the patient has a recording that says she is not accepting calls [facility] [id number] Miscellaneous Notes* Telephone Encounter - Ashley Haider MA - 07/13/2022 1:06 PM EST Attempted to call patient to help her schedule an appt - the patient has a recording that says she is not accepting calls * Telephone Encounter - Devendra Lorea MD - 07/13/2022 11:10 AM EST Okay to reschedule * Telephone Encounter - Katie Bernardo - 07/07/2022 5:48 PM EST Name of Caller: Radha Contact Reason for Appointment: Pt states that she would like to r/s her 07/08 appt. Please advise. Office Name: [facility] Physician Orthopedics Medication Refills need, if any: N/A Medication Name: N/A documented in this encounterSSelect Medical [facility] Rehabilitation HospitalHtzfle17-68-1914 Telephone encounter Note* Telephone Encounter - Devendra Loera MD - 07/13/2022 11:10 AM EST Okay to reschedule [facility] [employer] Phone: [phone] Telephone encounter Note* Telephone Encounter - ELSA Arriaza CNP - 07/11/2022 2:11 PM EST Reviewed chart. Refill appropriate. RX sent. [facility] SystemMqtzkn74-30-9902 Miscellaneous Notes* Telephone Encounter - ELSA Arriaza CNP - 07/11/2022 2:11 PM EST Reviewed chart. Refill appropriate. RX sent. * Telephone Encounter - Mya Foster MA - 07/11/2022 2:02 PM EST Prescription Request: Last medication check: 08/05/21 Last physical exam: 04/26/22 Next scheduled appointment: 09/29/2022 Last date of refill on this medication 02/28/2022 documented in this encounterSSelect [facility] HospitalQwbogd28-01-6029 Telephone encounter Note* Telephone Encounter - Mya Foster MA - 07/11/2022 2:02 PM EST Prescription Request: Last medication check: 08/05/21 Last physical exam: 04/26/22 Next scheduled appointment: 09/29/2022 Last date of refill on this medication 02/28/2022 [facility] SystemExiurz80-09-7291 Telephone encounter Note* Telephone Encounter - Mya Foster MA - 07/11/2022 9:46 AM EST Notified. [facility] SystemGpryfv16-09-8556 Miscellaneous Notes* Telephone Encounter - Mya Foster MA - 07/11/2022 9:46 AM EST Notified. * Telephone Encounter - Shiv Lopez MD - 07/08/2022 12:30 PM EST Rx sent for tramadol, she can take this with Tylenol, this is a one-time prescription and cannot berefilled because we are not chronic pain management physicians. * Telephone Encounter - Christine Haas RN - 07/08/2022 11:16 AM EST S: Patient called the clinical access center with complaint of fell last night on concrete, hit nose, right leg, is achy B: Ongoing 07/07/22 Called paramedics they checked her out Was going down to the basement steps and she missed the 2nd step A: Patient c/o every part of her body is achy 6/10 and the pain is constant. Nose is sore feels like she was in a boxing rink, black and blue, but more scraped. States nothing is broke the EMT's checked her out very well last night she needs something for the pain Tylenol and that has not helped. Pharmacy and allergies verified R: Decline Appointment Patient instructed to call back with worsening symptoms, concerns or questions. Patient verbalized understanding. Message to the office for review by the provider and needs recommendation from Provider for treatment going forward. Reason for Disposition Caller has NON-URGENT question and triager unable to answer question Protocols used: Falls and Bygudjm-WNRHD-XL documented in this encounterSSelect Medical [facility] Rehabilitation [id number] Telephone encounter Note* Telephone Encounter - Shiv Lopez MD - 07/08/2022 12:30 PM EST Rx sent for tramadol, she can take this with Tylenol, this is a one-time prescription and cannot berefilled because we are not chronic pain management physicians. [facility] [id number] Miscellaneous Notes* Telephone Encounter - Shiv Lopez MD - 07/08/2022 12:30 PM EST Rx sent for tramadol, she can take this with Tylenol, this is a one-time prescription and cannot berefilled because we are not chronic pain management physicians. * Telephone Encounter - Christine Haas RN - 07/08/2022 11:16 AM EST S: Patient called the [facility] with complaint of fell last night on concrete, hit nose, right leg, is achy B: Ongoing 07/07/22 Called paramedics they checked her out Was going down to the basement steps and she missed the 2nd step A: Patient c/o every part of her body is achy 6/10 and the pain is constant. Nose is sore feels like she was in a boxing rink, black and blue, but more scraped. States nothing is broke the EMT's checked her out very well last night she needs something for the pain Tylenol and that has not helped. Pharmacy and allergies verified R: Decline Appointment Patient instructed to call back with worsening symptoms, concerns or questions. Patient verbalized understanding. Message to the office for review by the provider and needs recommendation from Provider for treatment going forward. Reason for Disposition Caller has NON-URGENT question and triager unable to answer question Protocols used: Falls and Mkmiwns-WSXQC-WM documented in this [facility]01-20-2023 Telephone encounter Note* Telephone Encounter - Christine Haas RN - 07/08/2022 11:16 AM EST S: Patient called the [facility] with complaint of fell last night on concrete, hit nose, right leg, is achy B: Ongoing 07/07/22 Called paramedics they checked her out Was going down to the basement steps and she missed the 2nd step A: Patient c/o every part of her body is achy 6/10 and the pain is constant. Nose is sore feels like she was in a boxing rink, black and blue, but more scraped. States nothing is broke the EMT's checked her out very well last night she needs something for the pain Tylenol and that has not helped. Pharmacy and allergies verified R: Decline Appointment Patient instructed to call back with worsening symptoms, concerns or questions. Patient verbalized understanding. Message to the office for review by the provider and needs recommendation from Provider for treatment going forward. Reason for Disposition Caller has NON-URGENT question and triager unable to answer question Protocols used: Falls and Pbwpcwe-OOMSL-KQ [facility] [id number] Telephone encounter Note* Telephone Encounter - Katie Bernardo - 07/07/2022 5:48 PM EST Name of Caller: Radha Contact Reason for Appointment: Pt states that she would like to r/s her 07/08 appt. Please advise. Office Name: [facility] Physician Orthopedics Medication Refills need, if any: N/A Medication Name: N/A [facility] [id number] Evaluation + Plan note* Assessment & Plan Note - Shiv Lopez MD - 06/30/2022 12:54 PM ESTAssociated Problem(s): Hyperlipidemia with target LDL less than 70 Controlled, continue rosuvastatin 10 mg daily [facility] [employer] [id number] Evaluation + Plan note* Assessment & Plan Note - Shiv Lopez MD - 06/30/2022 12:54 PM ESTAssociated Problem(s): Moderate episode of recurrent major depressive disorder (HCC) Stable, continue Paxil 20 mg daily [facility] [id number] Evaluation + Plan note* Assessment & Plan Note - Shiv Lopez MD - 06/30/2022 12:54 PM ESTAssociated Problem(s): Chronic right-sided low back pain with right-sided sciatica Referral to orthopedic surgeon [facility] SystemWbpenq59-83-9018 Evaluation + Plan note* Assessment & Plan Note - Shiv Lopez MD - 06/30/2022 12:54 PM ESTAssociated Problem(s): Hypothyroidism Controlled, continue levothyroxine 150 mcg daily [facility] [id number] Miscellaneous Notes* Assessment & Plan Note - Shiv Lopez MD - 06/30/2022 12:54 PM ESTAssociated Problem(s): Hyperlipidemia with target LDL less than 70 Controlled, continue rosuvastatin 10 mg daily * Assessment & Plan Note - Shiv Lopez MD - 06/30/2022 12:54 PM EST Associated Problem(s): Moderate episode of recurrent major depressive disorder (HCC) Stable, continue Paxil 20 mg daily * Assessment & Plan Note - Shiv Lopez MD - 06/30/2022 12:54 PM EST Associated Problem(s): Chronic right-sided low back pain with right-sided sciatica Referral to orthopedic surgeon * Assessment & Plan Note - Shiv Lopez MD - 06/30/2022 12:54 PM EST Associated Problem(s): Hypothyroidism Controlled, continue levothyroxine 150 mcg daily * Assessment & Plan Note - Shiv Lopez MD - 06/30/2022 12:53 PM EST Associated Problem(s): Vitamin D deficiency Stable, continue vitamin D 50,000 units weekly * Assessment & Plan Note - Shiv Lopez MD - 06/30/2022 12:53 PM EST Associated Problem(s): Uncontrolled type 2 diabetes mellitus with hyperglycemia (HCC) Uncontrolled, continue NovoLog 14 units before each meal. 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 * Assessment & Plan Note - Shiv Lopez MD - 06/30/2022 12:52 PM EST Associated Problem(s): DDD (degenerative disc disease), lumbar This is a chronic issue we will send her to spine surgery for further evaluation. * Assessment & Plan Note - Shiv Lopez MD - 06/30/2022 12:51 PM EST Associated Problem(s): Hypertension Blood pressure was initially elevated, recheck was normal, continue lisinopril 40 mg daily and amlodipine 10 mg daily * Assessment & Plan Note - Shiv Lopez MD - 06/30/2022 12:51 PM EST Associated Problem(s): Restless legs syndrome (RLS) Stable on current dose of Mirapex 2 mg nightly * Assessment & Plan Note - Shiv Lopez MD - 06/30/2022 12:51 PM EST Associated Problem(s): Insomnia Stable on current dose of Ambien documented in this [facility]01-12-2023 Evaluation + Plan note* Assessment & Plan Note - Shiv Lopez MD - 06/30/2022 12:53 PM EST Associated Problem(s): Vitamin D deficiency Stable, continue vitamin D 50,000 units weekly [id number] [facility] + Plan note* Assessment & Plan Note - Shiv Lopez MD - 06/30/2022 12:53 PM ESTAssociated Problem(s): Uncontrolled type 2 diabetes mellitus with hyperglycemia (HCC) Uncontrolled, continue NovoLog 14 units before each meal. 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 [facility] [id number] Evaluation + Plan note* Assessment & Plan Note - Shiv Lopez MD - 06/30/2022 12:52 PM ESTAssociated Problem(s): DDD (degenerative disc disease), lumbar This is a chronic issue we will send her to spine surgery for further evaluation. [place] [id number] Evaluation + Plan note* Assessment & Plan Note - Shiv Lopez MD - 06/30/2022 12:51 PM ESTAssociated Problem(s): Hypertension Blood pressure was initially elevated, recheck was normal, continue lisinopril 40 mg daily and amlodipine 10 mg daily [facility]01-12-2023 Evaluation + Plan note* Assessment & Plan Note - Shiv Lopez MD - 06/30/2022 12:51 PM ESTAssociated Problem(s): Restless legs syndrome (RLS) Stable on current dose of Mirapex 2 mg nightly [facility]01-12-2023 Evaluation + Plan note* Assessment & Plan Note - Shiv Lopez MD - 06/30/2022 12:51 PM ESTAssociated Problem(s): Insomnia Stable on current dose of Ambien [place] [id number] History of Present illness Narrative* Syl Kumar MA - 06/30/2022 8:15 AM EST Patient verified by last name and date of . Patient wants a car worker helper in the room during during the visit. no Capsule Filler na * Shiv Lopez MD - 06/30/2022 8:15 AM EST Images from the original note were not included. 06/30/2022 Radha Sandoval (: 1945) is a 76 y.o. female , Established patient, here for evaluation of the following chief complaint(s): Back Problem and Blood Work (Orders are in chart ) ASSESSMENT/PLAN: 1. Uncontrolled type 2 diabetes mellitus with hyperglycemia (HCC) Assessment & Plan: Uncontrolled, continue NovoLog 14 units before each meal. Orders: - Comprehensive metabolic panel - Hemoglobin A1c - Microalbumin / creatinine urine ratio 2. Restless legs syndrome (RLS) Assessment & Plan: Stable on current dose of Mirapex 2 mg nightly 3. Primary insomnia Assessment & Plan: Stable on current dose of Ambien 4. Primary hypertension Assessment & Plan: Blood pressure was initially elevated, recheck was normal, continue lisinopril 40 mg daily and amlodipine 10 mg daily 5. Vitamin D deficiency Assessment & Plan: Stable, continue vitamin D 50,000 units weekly Orders: - Vitamin D 25 hydroxy 6. Acquired hypothyroidism Assessment & Plan: Controlled, continue levothyroxine 150 mcg daily Orders: - TSH 7. Moderate episode of recurrent major depressive disorder (HCC) Assessment & Plan: Stable, continue Paxil 20 mg daily 8. Hyperlipidemia with target LDL less than 70 Assessment & Plan: Controlled, continue rosuvastatin 10 mg daily Orders: - Lipid panel 9. 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, with long-term current use of insulin, unspecified whether stage 3a or 3b CKD (HCC) Assessment & Plan: Uncontrolled, kidney function is stable, continue NovoLog 14 units before each meal. 10. DDD (degenerative disc disease), lumbar Assessment & Plan: This is a chronic issue we will send her to spine surgery for further evaluation. Orders: - [facility] - [place] Cecelia/[place] 11. Chronic right-sided low back pain with right-sided sciatica Assessment & Plan: Referral to orthopedic surgeon Orders: - [facility] - [place] Follow up in about 3 months (around 09/28/2022). SUBJECTIVE/OBJECTIVE: HPI -Radha comes in today for 3-month follow-up on her multiple health issues these include uncontrolled diabetes with chronic kidney disease, restless leg syndrome, insomnia, hypertension which is is high today we will recheck prior to discharge, vitamin D deficiency hypothyroidism and depression and hyperlipidemia. He is all seem to be fairly stable however her blood sugars were not brought in and her last A1c was high. Her only real complaint today is some low back pain that comes and goes sometimes shoots down towards her legs and she can hardly walk. She brings in a letter from 2003 which indicates she has degenerative disc disease and spinal stenosis. Review of Systems Constitutional: Negative for chills and fever. Respiratory: Negative for shortness of breath. Cardiovascular: Negative for chest pain and palpitations. Gastrointestinal: Negative for abdominal pain, blood in stool, constipation and diarrhea. Genitourinary: Negative for dyspareunia, dysuria, frequency, hematuria and urgency. Musculoskeletal: Positive for back pain. Neurological: Negative for weakness and numbness. Psychiatric/Behavioral: Negative for dysphoric mood. The patient is not nervous/anxious. Vitals: 06/30/22 0816 06/30/22 0847 BP: (!) 167/74 125/62 Pulse: 92 80 Weight: 242 lb (110 kg) Height: 5' 5.25 (1.657 m) Physical Exam Vitals and nursing note reviewed. Constitutional: General: She is not in acute distress. Appearance: Normal appearance. HENT: Head: Normocephalic and atraumatic. Right Ear: Tympanic membrane, ear canal and external ear normal. Left Ear: Tympanic membrane, ear canal and external ear normal. Mouth/Throat: Mouth: Mucous membranes are moist. Pharynx: Oropharynx is clear. Eyes: Extraocular Movements: Extraocular movements intact. Pupils: Pupils are equal, round, and reactive to light. Cardiovascular: Rate and Rhythm: Normal rate and regular rhythm. Heart sounds: Normal heart sounds. No murmur heard. Pulmonary: Effort: Pulmonary effort is normal. Breath sounds: Normal breath sounds. Abdominal: Comments: obese Musculoskeletal: Cervical back: Neck supple. Right lower leg: Edema present. Left lower leg: Edema present. Lymphadenopathy: Cervical: No cervical adenopathy. Neurological: Mental Status: She is alert. Psychiatric: Mood and Affect: Mood normal. An electronic signature was used to authenticate this note. Shiv Lopez MD 06/30/2022 12:55 PM [facility]* Diagnosis Localized edema Edema documented in this encounter [facility] Work Phone: Evaluation note* Diagnosis Dyspnea on exertion Other dyspnea and respiratory abnormality documented in this encounter [facility] Work Phone: Evaluation note* Diagnosis Acute lower GI bleeding- Primary Unspecified, hemorrhage of gastrointestinal tract Acute lower GI bleeding Unspecified, hemorrhage of gastrointestinal tract Rectal bleeding Hemorrhage of rectum and anus Gastrointestinal bleed Unspecified, hemorrhage of gastrointestinal tract [facility]* Diagnosis Hyperlipidemia with target LDL less than 70 Other and unspecified hyperlipidemia Acquired hypothyroidism Unspecified hypothyroidism Chronic left shoulder pain Pain in joint, shoulder region [facility]* Diagnosis Vitamin D deficiency Acquired hypothyroidism Unspecified hypothyroidism Chronic left shoulder pain Pain in joint, shoulder region Restless legs syndrome (RLS) [facility]* Diagnosis Wound of right buttock, subsequent encounter- Primary Chronic left shoulder pain Pain in joint, shoulder region [facility]* Diagnosis LING (acute kidney injury) ([facility]) ([facility])- Primary Pyelonephritis Unspecified pyelonephritis LING (acute kidney injury) ([facility]) ([facility]) Polypharmacy Issue of repeat prescriptions Insomnia, unspecified type Pressure ulcer of right buttock, stage 3 ([facility]) Declining functional status Weakness Other malaise and fatigue Insomnia Insomnia, unspecified Anxiety Anxiety state, unspecified Polypharmacy Issue of repeat prescriptions DNR (do not resuscitate) Other specified conditions influencing health status Complicated UTI (urinary tract infection) documented in this encounter [facility]* Diagnosis Onset Date Resolution Status Acquired lymphedema acute Debility acute Depression acute Diabetes mellitus acute Edema acute Hypothyroidism acute Insomnia acute Pain in left toe(s) acute Pain in right toe(s) acute Restless leg syndrome acute Rheumatoid arthritis acute Tinea unguium acute Type 2 diabetes mellitus with diabetic polyneuropathy acute Urinary tract infection acut e Hypertension chronic [facility] Work Phone: Evaluation note* Diagnosis Onset Date Resolution Status Acquired lymphedema acute Debility acute Depression acute Diabetes mellitus acute Edema acute Hypothyroidism acute Insomnia acute Restless leg syndrome acute Rheumatoid arthritis acute Type 2 diabetes mellitus with diabetic polyneuropathy acute Hypertension chronic Pain in left toe(s) resolved Pain in right toe(s) resolve d Tinea unguium resolved Urinary tract infection reso lved [facility] Work Phone: Evaluation noteNo assessment information available [facility] Work Phone: Evaluation note* Diagnosis Uncontrolled type 2 diabetes mellitus with hyperglycemia (HCC)- Primary Restless legs syndrome (RLS) Primary insomnia Persistent disorder of initiating or maintaining sleep Primary hypertension Unspecified essential hypertension Vitamin D deficiency Acquired hypothyroidism Unspecified hypothyroidism Moderate episode of recurrent major depressive disorder (HCC) Hyperlipidemia with target LDL less than 70 Other and unspecified hyperlipidemia 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, with long-term current use of insulin, unspecified whether stage 3a or 3b CKD (HCC) DDD (degenerative disc disease), lumbar Degeneration of lumbar or lumbosacral intervertebral disc Chronic right-sided low back pain with right-sided sciatica [facility]* Diagnosis Trauma- Primary Injury, other and unspecified, unspecified site [facility]* Diagnosis Trauma- Primary Injury, other and unspecified, unspecified site [facility]* Diagnosis Vitamin D deficiency [facility] instructions Additional Instructions Discharge to [facility] 03/18/2023, intermediate, Part B therapies.[facility] Work Phone: Instructions* Attachments The following attachments cannot be sent through Care Everywhere. * Acute Cystitis Discharge Instructions (Nepalese) documented in this [facility] for referral (narrative)* Consultation (Urgent) - Pending Review Specialty Diagnoses / Procedures Referred By Varun t Referred To Contact Wound Care Diagnoses Wound of right buttock, subsequent encounter Procedures [place] OFFICE/OUTPATIENT [facility] 60-74 MINUTES Katia Granados APRN - PANTOGRAPH I ENGRAVER [address] [place] [address] [place] [address] [facility] [address] [place] [address] Referral ID Status Reason Start Date Expiration Date Visits Requested Visits Authorized [id number] Pending Review Specialty Services Required 02/07/2023 02/07/2024 1 1 [facility] referral (narrative)* Consultation (Routine) - Pending Review Specialty Diagnoses / Procedures Referred By Varun t Referred To Contact Orthopedic Surgery: Spine Surgery / Orthopedic Surgery Diagnoses DDD (degenerative disc disease), lumbar Chronic right-sided low back pain with right-sided sciatica Procedures [place] OFFICE/OUTPATIENT [facility] 60-74 MINUTES Shiv Lopez MD [address], [place] [address] [facility] [address] [facility] [address] [place] [address] Referral ID Status Reason Start Date Expiration Date Visits Requested Visits Authorized [id number] Pending Review Specialty Services Required 06/30/2022 12/27/2022 1 1 Rogelio Harmon for referral (narrative)No reason for referral information availableWOhio [facility] Work Phone: Summary Purpose Family History No Family History Records Found Relationship Condition Age at Onset Recorded Date/T amelia Not Specified Cardiac disease Unknown Malignant neoplasm Unknown Advance Directives No Advanced Directives Records FoundDocuments on File Type Date Recorded Patient Room Service Clerk Expl anation ACP-Advance Directive ACP-Power of Director Compensation Latest Code Status on File Code Status Date Activated Date Inactivated Comments Full Code 01/20/2019 3:56 AM 01/23/2019 7:06 PM Full Code 01/20/2019 3:56 AM 01/20/2019 3:56 AM Documents on File Type Date Recorded Patient Room Service Clerk Expl anation Advance Directives and Living Will Power of Director Compensation Documents on File Type Date Recorded Patient Room Service Clerk Expl anation ACP-Advance Directive ACP-Power of Director Compensation Latest Code Status on File Code Status Date Activated Date Inactivated Comments Full Code 01/20/2019 3:56 AM 01/23/2019 7:06 PM Full Code 01/20/2019 3:56 AM 01/20/2019 3:56 AM Latest Code Status on File Code Status Date Activated Date Inactivated Comments Full Code 12/05/2022 7:53 PM 12/07/2022 7:52 PM Latest Code Status on File Code Status Date Activated Date Inactivated Comments Full Code 12/05/2022 7:53 PM 12/07/2022 7:52 PM Latest Code Status on File Code Status Date Activated Date Inactivated Comments DNR-CCA 03/01/2023 12:15 PM 03/03/2023 3:16 PM Question Answer Comments ICU transfer: Yes Intubation: No Code Status History Code Status Date Activated Date Inactivated Comments Full Code 02/28/2023 6:04 PM 03/01/2023 12:15 PM Full Code 12/05/2022 7:53 PM 12/07/2022 7:52 PM Advance Directive Response Recorded Date/ Time Living Will No March 06, 2023 4:25pm Power of Director Compensation No February 4:25pm Advance Directive Response Recorded Date/ Time Living Will No March 06, 2023 3:25pm Power of Director Compensation No February 3:25pm Documents on File Type Date Recorded Patient Room Service Clerk Expl anation DNR (Do Not Resuscitate) 03/06/2023 11:36 AM Date Activated Date Inactivated Comments 03/01/2023 12:15 PM 03/03/2023 3:16 PM Question Answer Comments ICU transfer: Yes Intubation: No Date Activated Date Inactivated Comments 02/28/2023 6:04 PM 03/01/2023 12:15 PM Date Activated Date Inactivated Comments 12/05/2022 7:53 PM 12/07/2022 7:52 PM Discharge Instructions * Attachments The following attachments cannot be sent through Care Everywhere. * Lacerations: Stitches (Nepalese) * Head Injury: Closed: General Info (Nepalese) * Cervical Strain (Nepalese) documented in this encounter Assessments Diagnosis Injury of head, initial encounter- Primary Laceration of scalp, initial encounter Strain of neck muscle, initial encounter Reason for Referral Status Reason Specialty Diagnoses / Procedures Referre d By Contact Referred To Contact Closed Cardiology Diagnoses Localized edema Procedures ECHO Complete 2D W Doppler W Color Shiv Lopez MD [address] [place] [address], [address] [place] [id number] Specialty Diagnoses / Procedures Referred By Contac t Referred To Contact Gabrielle Finch MD [address] [place] [address] Referral ID Status Reason Start Date Expiration Date Visits Re quested Visits Authorized [id number] Closed 1 1 Referral ID Status Reason Start Date Expiration Date Visits Re quested Visits Authorized [id number] Closed 1 1 Referral ID Status Reason Start Date Expiration Date Visits Re quested Visits Authorized [id number] Closed 1 1 Specialty Diagnoses / Procedures Referred By Contac t Referred To Contact Wound Care Diagnoses Pressure ulcer of right buttock, stage 3 (HCC) Procedures [place] OFFICE/OUTPATIENT [facility] 60-74 MINUTES Rosalinda Burrows, ELSA - PANTOGRAPH I ENGRAVER [address] [place] [address] Referral ID Status Reason Start Date Expiration Date Visits Requested Visits Authorized [id number] Pending Review Specialty Services Required 03/01/2023 02/29/2024 1 1 Specialty Diagnoses / Procedures Referred By Contac t Referred To Contact Geriatric Medicine Diagnoses Polypharmacy Insomnia, unspecified type Procedures [place] OFFICE/OUTPATIENT [facility] 60-74 MINUTES Adam Holt MD [address] [address] [facility] [address] [facility] [address] [place] [address] Referral ID Status Reason Start Date Expiration Date Visits Requested Visits Authorized [id number] Pending Review Specialty Services Required 03/01/2023 02/29/2024 1 1 Chief Complaint and Reason for Visit Chief Complaint UTI/PRESSURE WOUND Reason for Visit Acquired lymphedema Debility Depression Diabetes mellitus Edema Hypothyroidism Insomnia Pain in left toe(s) Pain in right toe(s) Restless leg syndrome Rheumatoid arthritis Tinea unguium Type 2 diabetes mellitus with diabetic polyneuropathy Urinary tract infection Hypertension Chief Complaint UTI/PRESSURE WOUND 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 Reason for Visit Acquired lymphedema Debility Depression Diabetes mellitus Edema Hypothyroidism Insomnia Restless leg syndrome Rheumatoid arthritis Type 2 diabetes mellitus with diabetic polyneuropathy Hypertension Pain in left toe(s) Pain in right toe(s) Tinea unguium Urinary tract infection Chief Complaint UTI/PRESSURE WOUND 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 Reason for Visit Acquired lymphedema Debility Depression Diabetes mellitus Edema Hypothyroidism Insomnia Restless leg syndrome Rheumatoid arthritis Type 2 diabetes mellitus with diabetic polyneuropathy Hypertension Pain in left toe(s) Pain in right toe(s) Tinea unguium Urinary tract infection Chief Complaint UTI/PRESSURE WOUND 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 Reason for Visit Acquired lymphedema Debility Depression Diabetes mellitus Edema Hypothyroidism Insomnia Restless leg syndrome Rheumatoid arthritis Type 2 diabetes mellitus with diabetic polyneuropathy Hypertension Pain in left toe(s) Pain in right toe(s) Tinea unguium Urinary tract infection Chief Complaint UTI/PRESSURE WOUND 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 LABWORK Reason for Visit Acquired lymphedema Debility Depression Diabetes mellitus Edema Hypothyroidism Insomnia Restless leg syndrome Rheumatoid arthritis Type 2 diabetes mellitus with diabetic polyneuropathy Hypertension Pain in left toe(s) Pain in right toe(s) Tinea unguium Urinary tract infection Chief Complaint UTI/PRESSURE WOUND 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 LABWORK Reason for Visit Acquired lymphedema Debility Depression Diabetes mellitus Edema Hypothyroidism Insomnia Restless leg syndrome Rheumatoid arthritis Type 2 diabetes mellitus with diabetic polyneuropathy Hypertension Pain in left toe(s) Pain in right toe(s) Tinea unguium Urinary tract infection Chief Complaint SHELTER LABWORK 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 LABWORK 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 LABWORK 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 LABWORK Chief Complaint SHELTER LAB WOR K 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 LABWORK 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 LABWORK 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 LABWORK LABWORK Chief Complaint SHELTER LAB WOR K LABWORK 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 LABWORK 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 LABWORK LABWORK LABWORK Chief Complaint SHELTER LAB WOR K LABWORK 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 LABWORK 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 LABWORK LABWORK LABWORK LABWORK Chief Complaint Admit Date 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 May 29 5:00am 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 June 13 6:35am 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 June 27, 2024 5:00am 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 July 11, 2024 5:00am LABWORK July 25, 2024 5 :00am B/L SHOULDER PAIN/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 o July 31, 2024 4:58pm LABWORK August 06, 2024 4:00pm LABWORK August 08, 2024 8:05am 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 August 22, 2024 7: 10am Chief Complaint Admit Date 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 May 29 5:00am 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 June 13 6:35am 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 June 27, 2024 5:00am 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 July 11, 2024 5:00am LABWORK July 25, 2024 5 :00am B/L SHOULDER PAIN/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 o July 31, 2024 4:58pm LABWORK August 06, 2024 4:00pm LABWORK August 08, 2024 8:05am 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 August 22, 2024 7: 10am 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 September 05, 2024 8 :00am Chief Complaint Admit Date 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 June 13 6:35am 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 June 27, 2024 5:00am 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 July 11, 2024 5:00am LABWORK July 25, 2024 5 :00am B/L SHOULDER PAIN/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 o July 31, 2024 4:58pm LABWORK August 06, 2024 4:00pm LABWORK August 08, 2024 8:05am 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 August 22, 2024 7: 10am 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 September 05, 2024 8 :00am 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 October 03, 2024 4 :00am Chief Complaint Admit Date 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 June 27, 2024 5:00am 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 July 11, 2024 5:00am LABWORK July 25, 2024 5 :00am B/L SHOULDER PAIN/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 o July 31, 2024 4:58pm LABWORK August 06, 2024 4:00pm LABWORK August 08, 2024 8:05am 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 August 22, 2024 7: 10am 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 September 05, 2024 8 :00am LABWORK September 19, 2024 5:00 am 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 September 23, 2024 8: 20am 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 October 03, 2024 4 :00am Additional Source Comments INFORMATION SOURCE (unrecogn ized section and content) DATE CREATED AUTHOR 12/13/2017 [facility] DATE CREATED AUTHOR AUTHOR'S ORGANIZ ATION 10/08/2020 [facility] DATE CREATED AUTHOR AUTHOR'S ORGANIZ ATION 08/26/2021 [facility] DATE CREATED AUTHOR AUTHOR'S ORGANIZ ATION 02/05/2024 [facility] DATE CREATED AUTHOR AUTHOR'S ORGANIZ ATION 11/25/2024 [facility] Reason for Visit (unrecogniz ed section and content) Reason Comments Fall Surgical team Reason Onset Date Comments Results 10/05/2022 Reason Comments Black or Bloody Stool Specialty Diagnoses / Procedures Referred By Contac t Referred To Contact Diagnoses Acute lower GI bleeding Procedures K92.2 Bertram Durbin MD [address] [place] [id number] [facility] 1e Med Surg [address] [place] [address] Referral ID Status Reason Start Date Expiration Date Visits Re quested Visits Authorized [id number] 1 Reason Onset Date Comments Med Refill 12/08/2022 Reason Onset Date Comments Rectal Bleeding 12/05/2022 Reason Onset Date Comments Med Refill 01/12/2023 Reason Onset Date Comments Spasms 01/25/2023 Reason Comments Sore On buttocks-getting worse Reason Comments Wound Care Reason Onset Date Comments Blood Sugar Problem 02/23/2023 Reason Comments Blood Sugar Problem Knee Pain Diarrhea Back Pain Reason Onset Date Comments Results 02/28/2023 Reason Comments Back Pain Specialty Diagnoses / Procedures Referred By Contac t Referred To Contact Diagnoses LING (acute kidney injury) (CMS/HCC) (HCC) Procedures .. Gabrielle Finch MD [address] [place] [address] [facility] Emergency Dept [address] [place] [address] Referral ID Status Reason Start Date Expiration Date Visits Re quested Visits Authorized [id number] 1 Reason Onset Date Comments ER Follow-up 12/29/2023 Reason Comments Back Problem Blood Work Orders are in chart Reason Onset Date Comments Fall 07/08/2022 Reason Onset Date Comments Med Refill 07/11/2022 Reason Onset Date Comments Reschedule 07/07/2022 07/08/22 Reason Onset Date Comments Med Refill 07/18/2022 Reason Onset Date Comments Med Refill 07/26/2022 Reason Onset Date Comments Med Refill 08/12/2022 Care Teams (unrecognized sec tion and content) Team Status: Active Member Role Status Dates Dr. Melissa Reed MD Primary Care Provider Active Team Status: Inactive Member Role Status Dates Dr. Shiv Lopez MD Primary Care Provider Active Start: June 27, 2024 End: June 27, 2024 Dr. Melissa THOMPSON MD Attending Provider Active Start: June 27, 2024 End: June 27, 2024 Team Status: Active Member Role Status Dates Dr. Shiv Lopez MD Primary Care Provider Active Start: July 11, 2024 Dr. Melissa THOMPSON MD Attending Provider Active Start: July 11, 2024 Team Status: Active Member Role Status Dates Dr. Shiv Lopez MD Primary Care Provider Active Start: July 25, 2024 Dr. Melissa THOMPSON MD Attending Provider Active Start: July 25, 2024 Team Status: Inactive Member Role Status Dates Dr. Melissa Reed MD Primary Care Provider Active Start: July 31, 2024 End: July 31, 2024 Dr. Gypsy Argueta MD Attending Provider Active Start: July 31, 2024 End: July 31, 2024 Dr. Gypsy Argueta MD Referring Provider Active Start: July 31, 2024 End: July 31, 2024 Team Status: Active Member Role Status Dates Dr. Melissa Reed MD Primary Care Provider Active Start: August 06, 2024 Dr. Melissa THOMPSON MD Attending Provider Active Start: August 06, 2024 Team Status: Active Member Role Status Dates Dr. Melissa Reed MD Primary Care Provider Active Start: August 08, 2024 Dr. Melissa THOMPSON MD Attending Provider Active Start: August 08, 2024 Team Status: Inactive Member Role Status Dates Dr. Melissa Reed MD Primary Care Provider Active Start: August 22, 2024 End: August 22, 2024 Dr. Melissa THOMPSON MD Attending Provider Active Start: August 22, 2024 End: August 22, 2024 Dr. Melissa THOMPSON MD Referring Provider Active Start: August 22, 2024 End: August 22, 2024 Team Status: Inactive Member Role Status Dates Dr. Melissa Reed MD Primary Care Provider Active Start: September 05, 2024 End: September 05, 2024 Dr. Melissa THOMPSON MD Attending Provider Active Start: September 05, 2024 End: September 05, 2024 Team Status: Inactive Member Role Status Dates Dr. Melissa Reed MD Primary Care Provider Active Start: September 19, 2024 End: September 19, 2024 Dr. Melissa THOMPSON MD Attending Provider Active Start: September 19, 2024 End: September 19, 2024 Team Status: Active Member Role Status Dates Dr. Melissa Reed MD Primary Care Provider Active Start: September 23, 2024 Dr. Melissa THOMPSON MD Attending Provider Active Start: September 23, 2024 Team Status: Inactive Member Role Status Dates Dr. Melissa Reed MD Primary Care Provider Active Start: October 03, 2024 End: October 03, 2024 Dr. Melissa THOMPSON MD Attending Provider Active Start: October 03, 2024 End: October 03, 2024 Dr. Melissa THOMPSON MD Referring Provider Active Start: October 03, 2024 End: October 03, 2024 Team Status: Active Member Role Status Dates Dr. Shiv Lopez MD Primary Care Provider Active Start: June 13, 2024 Dr. Melissa THOMPSON MD Attending Provider Active Start: June 13, 2024 Team Status: Active Member Role Status Dates Dr. Melissa Reed MD Primary Care Provider Active Start: September 19, 2024 Dr. Melissa THOMPSON MD Attending Provider Active Start: September 19, 2024 Byproducts Maker Relationship Specialty Start Date End Date Shiv Lopez MD [address] [place] [address], [place] [address] PCP - General 02/01/19 Byproducts Maker Relationship Specialty Start Date End Date Shiv Lopez MD [address] [facility] [place] [place] [address] PCP - General 02/01/19 Byproducts Maker Relationship Specialty Start Date End Date Shiv Lopez MD [address] [facility] [place] [address] PCP - General 02/01/19 Byproducts Maker Relationship Specialty Start Date End Date Shiv Lopez MD [facility] [place] [address] PCP - General 02/01/19 Byproducts Maker Relationship Specialty Start Date [place] [address] PCP - General 02/01/19 Byproducts Maker Relationship Specialty Start Date End Date Shiv Lopez MD [facility] [place] [address] PCP - General 02/01/19 Byproducts Maker Relationship Specialty Start Date End Date Shiv Lopez MD [facility] [place] [address] PCP - General 02/01/19 Byproducts Maker Relationship Specialty Start Date End Date Shiv Lopez MD [facility] [place] [address] PCP - General 02/01/19 Byproducts Maker Relationship Specialty Start Date End Date Shiv Lopez MD [address] [facility] [place] [address] PCP - General 02/01/19 Byproducts Maker Relationship Specialty Start Date End Date Shiv Lopez MD [address] [facility] [place] [address] PCP - General 02/01/19 Byproducts Maker Relationship Specialty Start Date [place] [address] PCP - General 02/01/19 Byproducts Maker Relationship Specialty Start Date End Date Shiv Lopez MD [address] [place] [address] PCP - General 02/01/19 Byproducts Maker Relationship Specialty Start Date End Date Shiv Lopez MD [facility] [place] [address] PCP - General 02/01/19 Byproducts Maker Relationship Specialty Start Date End Date Shiv Lopez MD [address] [place] [address] PCP - General 02/01/19 Team Status: Active Member Role Status Dates Dr. Shiv Lopez MD Primary Care Provider Active Team Status: Inactive Member Role Status Dates Dr. Shiv Lopez MD Primary Care Provider Active Dr. Baljit Jaffe MD Admit Provider, At tending Provider, Referring Provider Active Dr. Omar Huitron DPM Other Provider Active Team Status: Inactive Member Role Status Dates Dr. Shiv Lopez MD Primary Care Provider Active Lambert THOMPSON Attending Provider, Referring Provide r Active Team Status: Inactive Member Role Status Dates Dr. Shiv Lopez MD Primary Care Provider Active Lambert THOMPSON Attending Provider Active Team Status: Active Member Role Status Dates Dr. Sihv Lopez MD Primary Care Provider Active Lambert THOMPSON Attending Provider Active Team Status: Active Member Role Status Dates Dr. Shiv Lopez MD Primary Care Provider Active Dr. Melissa THOMPSON MD Attending Provider Active Team Status: Inactive Member Role Status Dates Dr. Shiv Lopez MD Primary Care Provider Active Dr. Melissa THOMPSON MD Attending Provider Active Team Status: Inactive Member Role Status Dates Dr. Shiv Lopez MD Primary Care Provider Active Dr. Melissa THOMPSON MD Attending Provider, Referring Provider Active Byproducts Maker Relationship Specialty Start Date End Date Shiv Lopez MD [address] [place] [address] PCP - General 02/01/19 Byproducts Maker Relationship Specialty Start Date End Date Shiv Lopez MD [address] [place] [address] PCP - General 02/01/19 Byproducts Maker Relationship Specialty Start Date End Date Shiv Lopez MD [address] [place] [address] PCP - General 02/01/19 Byproducts Maker Relationship Specialty Start Date End Date Shiv Lopez MD [address] [place] [id number] PCP - General 02/01/19 Team Status: Inactive Member Role Status Dates Dr. Shiv Lopez MD Primary Care Provider Active Start: May 29, 2024 End: May 29, 2024 Dr. Melissa THOMPSON MD Attending Provider Active Start: May 29, 2024 End: May 29, 2024 Team Status: Active Member Role Status Dates Dr. Melissa Reed MD Primary Care Provider Active Start: September 05, 2024 Dr. Melissa THOMPSON MD Attending Provider Active Start: September 05, 2024 Scheduled Active and Recently Administ ered Medications (unrecognized section and content) Medication Order 12/05/2022 12/06/2022 12/07/2022 albuterol 108 (90 Base) MCG/ACT inhaler 2 puff (CANCELED) 2 puff, Inhalation, 4 times daily, First dose on Mon12/05/22 at 2100 2100 (Not Given - Provider: Tati Herrera RCP - Reason: Medication not available) 0803 (Given - Provider: Lani Bolton RCP)1304 (Given - Provider: Lani Bolton RCP)1700 (Due) albuterol 108 (90 Base) MCG/ACT inhaler 2 puff 2 puff, Inhalation, 3 times daily, First dose (after last modification) on Mon12/06/22 at 2000 2156 (Given - Provider: Maryuri Dumont RCP) 0853 (Not Given - Provider: Lani Bolton RCP - Reason: Patient not available)1637 (Not Given - Provider: Lani Bolton RCP - Reason: Other - Comment: discharged) amLODIPine (Norvasc) tablet 10 mg 10 mg, Oral, Daily, First dose on Mon12/05/22 at 1954 1954 (Not Given - Provider: Abby Kahn RN - Reason: Order parameters not met - Comment: Held per [facility]) 0859 (Given - Provider: Oneyda Young, TONI) 0900 (Not Given - Provider: Lambert Kaur, TONI - Reason: NPO) baclofen (Lioresal) tablet 10 mg 10 mg, Oral, Daily, First dose on Mon12/05/22 at 1954 2050 (Given - Provider: Abby Kahn, TONI) 0859 (Given - Provider: Oneyda Young, TONI) 0900 (Not Given - Provider: Lambert Kaur, TONI - Reason: NPO) Insulin Lispro (Humalog) injection 0-12 Units(Linked Group 1) 0-12 Units, SubCUTAneous, 3 times daily with meals, First dose on Mon12/05/22 at 1954, Medium Dose Correction Algorithm Glucose: Dose: LESS than 139 No Insulin 140-199 2 Unit 200-249 4 Units 250-299 6 Units 300-349 8 Units 350-400 10 Units Above 400 12 Units 1954 (Not Given - Provider: Abby Kahn RN - Reason: Other) 0905 (Given - Provider: Oneyda Young RN)1246 (Given - Provider: Oneyda Young RN)1604 (Given - Provider: Oneyda Young RN) 0800 (Not Given - Provider: Lambert Kaur RN - Reason: Patient not available)1159 (Given - Provider: Lambert Kaur RN)1700 (Canceled Entry - Provider: Automatic Discharge Provider - Comment: Automatically canceled at discontinue of medication order) Insulin Lispro (Humalog) injection 0-12 Units(Linked Group 1) 0-12 Units, SubCUTAneous, Nightly, First dose on Mon12/05/22 at 2100, If continuous tube feedings/TPN/NPO, give correction dose based on result, no reduction in dose. If eating or bolus tube feeding: Medium Dose Correction Algorithm Glucose: Dose: LESS than 139 No Insulin 140-199 2 Unit 200-249 4 Units 250-299 6 Units 300-349 8 Units 350-400 10 Units Above 400 12 Units 2050 (Given - Provider: Abby Kahn RN) 2019 (Given - Provider: Lillie Menjivar LPN) levothyroxine (Synthroid, Levoxyl) tablet 150 mcg 150 mcg, Oral, Daily, First dose on Mon12/05/22 at 1954, Tube feeding (TF) interaction, obtain physician order to manage, recommend holding TF for 30 minutes before and after dose. 1954 (Not Given - Provider: Abby Kahn RN - Reason: Patient/family refused) 09 (Given - Provider: Oneyda Young RN) 0900 (Not Given - Provider: Lambert Kaur RN - Reason: NPO) lisinopril tablet 40 mg 40 mg, Oral, Daily, First dose on Mon12/05/22 at 1954 1954 (Not Given - Provider: Abby Kahn RN - Reason: Order parameters not met - Comment: Held per [facility]) 0859 (Given - Provider: Oneyda Young RN) 0900 (Not Given - Provider: Lambert Kaur RN - Reason: NPO) PARoxetine (Paxil) tablet 20 mg 20 mg, Oral, Every morning, First dose on Mon12/06/22 at 0900 0900 (Given - Provider: Oneyda Young RN) 0900 (Not Given - Provider: Lambert Kaur RN - Reason: NPO) polyethylene glycol (GoLYTELY) solution 4,000 mL (COMPLETED) 4,000 mL, Oral, Once, On Mon12/06/22 at 1030, For 1 dose, Preprocedure, Begin at 1600. 240 ml (approximately 8 oz) PO every 10 minutes, until 4 liters are consumed or the rectal effluent is clear. Rapid drinking of each portion is preferred to drinking small amounts continuously. 1546 (Given - Provider: Oneyda Young RN) potassium chloride CR (Klor-Con M20) ER tablet 40 mEq (COMPLETED) 40 mEq, Oral, Once, On Mon12/07/22 at 1500, For 1 dose, Best given with food and plenty of water to minimize gastric irritation. Do not crush or chew. 1454 (Given - Provid er: Lambert Kaur RN) pramipexole (Mirapex) tablet 0.125 mg 0.125 mg, Oral, Nightly, First dose on Mon12/05/22 at 2100 2147 (Given - Provider: Abby Kahn RN) 2019 (Given - Provider: Lillie Menjivar LPN) rosuvastatin (Crestor) tablet 10 mg 10 mg, Oral, Daily, First dose on Mon12/05/22 at 1955 2051 (Given - Provider: Abby Kahn RN) 0901 (Given - Provider: Oneyda Young RN) 0900 (Not Given - Provider: Lambert Kaur RN - Reason: NPO) sodium chloride 0.9% (NS) flush 10 mL 10 mL, IntraVENous, Every 12 hours scheduled (2 times per day), First dose on Mon12/06/22 at 1030 1030 (Canceled Entry - Provider: Oneyda Young RN)2100 (Not Given - Provider: Lillie Menjivar LPN - Reason: IV Fluids Infusing) 0900 (Not Given - Provider: Lambert Kaur RN - Reason: Patient not available) Continuous Medication Order 12/05/2022 12/06/2022 12/07/2022 sodium chloride 0.9 % infusion 75 mL/hr, IntraVENous, Continuous, Starting on Mon12/05/22 at 1900 1900 (New Bag - Provider: Abby Kahn RN) 0907 (Continued by Anesthesia - Provider: ELSA Rasmussen CRNA)0911 (Rate/Dose Change - Provider: ELSA Rasmussen CRNA)0951 (Stopped - Provider: ELSA Rasmussen CRNA) PRN Medication Order 12/05/2022 12/06/2022 12/07/2022 acetaminophen (Tylenol) suppository 650 mg(Linked Group 2) 650 mg, Rectal, Every 6 hours PRN, mild pain (1-3), fever, For temp greater than 100.4 F (38 C), Starting on Mon12/05/22 at 1953, Administer if oral route cannot be used. Maximum dose of acetaminophen is 4000 mg from all sources in 24 hours. 0032 (See Alternative - Provider: Juan Nguyen RN)0859 (See Alternative - Provider: Oneyda Young RN) acetaminophen (Tylenol) tablet 650 mg(Linked Group 2) 650 mg, Oral, Every 6 hours PRN, mild pain (1-3), fever, For temp greater than 100.4 F (38 C), Starting on Mon12/05/22 at 1953, Maximum dose of acetaminophen is 4000 mg from all sources in 24 hours. 0032 (Given - Provider: Juan Nguyen RN)0859 (Given - Provider: Oneyda Young, TONI) dextrose 5 % infusion 100 mL/hr, IntraVENous, PRN, Blood sugar less than 70mg/dL, Starting on Mon12/05/22 at 1400, Start infusion following administration of dextrose 50% or glucagon. dextrose 50 % solution 12.5 g 12.5 g, IntraVENous, PRN, low blood sugar, Blood glucose less than 70 mg/dL and patient NOT ALERT or NPO., Starting on Mon12/05/22 at 1400, If patient does not respond within 5 minutes, repeat dose x1. Start D5W at 100 mL/hour until ordering provider can be reached. Repeat blood glucose in 15 minutes. If blood glucose is less than 70 mg/dL, repeat treatment and recheck blood glucose in 15 minutes x2. If using Glucostabilizer, dose as instructed per system. glucagon (human recombinant) injection 1 mg 1 mg, IntraMUSCular, PRN, low blood sugar, Blood glucose less than 70 mg/dL and patient NOT ALERT or NPO and does not have IV access., Starting on Mon12/05/22 at 1400, After administration, attempt intravenous access and start D5W at 100 mL/hr. Repeat blood glucose in 15 minutes x2 and notify provider. glucose oral gel 15 g 15 g, Oral, As needed, low blood sugar, Starting on Mon12/05/22 at 1400, If blood glucose less than 50 mg/dL and patient ALERT and NOT NPO, give 2 tubes glucose gel. If blood glucose less than 70 mg/dL and patient ALERT and NOT NPO, give 1 tube glucose gel. Repeat blood glucose in 15 minutes. If blood glucose is less than 70 mg/dL, repeat treatment and recheck blood glucose in 15 minutes x2 and notify provider. hydrALAZINE (Apresoline) injection 10 mg 10 mg, IntraVENous, Every 6 hours PRN, high blood pressure, for systolic BP>160, Starting on Mon12/05/22 at 1953 iopamidol (Isovue-370) 76 % injection 75 mL (COMPLETED) 75 mL, IntraVENous, IMG once PRN, contrast, Starting on Mon12/05/22 at 1311, For 1 dose 1538 (Given - Provider: Mary Wallace) ondansetron (Zofran) injection 4 mg(Linked Group 3) 4 mg, IntraVENous, Every 6 hours PRN, nausea, vomiting, Starting on Mon12/05/22 at 1953, 1st Line. Give IV if patient is unable to take orally. If inadequate response within 60 minutes, proceed to next-line agent or contact provider if no further options ordered. ondansetron ODT (Zofran-ODT) disintegrating tablet 4 mg(Linked Group 3) 4 mg, Oral, Every 8 hours PRN, nausea, vomiting, Starting on Mon12/05/22 at 1953, 1st Line. If inadequate response within 60 minutes, proceed to next-line agent or contact provider if no further options ordered. Patient should allow tablet to dissolve on tongue. Do not remove from blister pack until just before administering. polyethylene glycol (PEG) 3350 (Miralax) packet 17 g 17 g, Oral, Daily PRN, constipation, Starting on Mon12/05/22 at 1953, 1st line for treatment of constipation - give scheduled if no bowel movement in past 24 hours. sodium chloride 0.9 % infusion 5-250 mL/hr, IntraVENous, PRN, if patient receiving piggyback infusions and maintenance fluids are not ordered OR KVO fluids to protect IV site / prevent frequent line interruptions/ long duration, Starting on Mon12/06/22 at 1017, For piggyback infusion, administer at same rate as piggyback for a total of 25 mL. Enter 25 mL into dose field and piggyback rate into rate field of order. If piggyback is infusing at a rate less than 100 mL/hr, enter 25 mL into dose field and 100 mL/hr into rate field of order. For KVO fluids, enter rate of 20 mL/hr or less into rate field of order. sodium chloride 0.9% (NS) flush 10 mL 10 mL, IntraVENous, PRN, line care, Starting on Mon12/06/22 at 1017, After every IV line use zolpidem (Ambien) tablet 5 mg 5 mg, Oral, Nightly PRN, sleep, Starting on Mon12/05/22 at 1953 2019 (Given - Provider: Lillie Menjivar LPN) Linked Groups Order Group 1: Insulin Lispro (Humalog) injection 0-12 UnitsJump to med 0-12 Units, SubCUTAneous, 3 times daily with meals, First dose on Mon12/05/22 at 1955
Medium Dose Correction Algorithm Glucose: & nbsp; Dose: LESS than 139 No Insulin 140-199 2 Unit 200-249 4 Units 250-299 6 Units 300- 349 8 Units 350-400 10 Units Above 400 12 Units
And Insulin Lispro (Humalog) injection 0-12 UnitsJump to med 0-12 Units, SubCUTAneous, Nightly, First dose on Mon12/05/22 at 2100
If continuous tube feedings/TPN/NPO, give correction dose based on result, no reduction in dose. If eating or bolus tube feeding: Medium Dose Correction Algorithm Glucose: & nbsp; Dose: LESS than 139 No Insulin 140-199 2 Unit 200-249 4 Units 250-299 6 Units 300- 349 8 Units 350-400 10 Units Above 400 12 Units
Group 2: acetaminophen (Tylenol) tablet 650 mgJump to med 650 mg, Oral, Every 6 hours PRN, mild pain (1-3), fever, For temp greater than 100.4 F (38 C), Starting on Mon12/05/22 at 3
Maximum dose of acetaminophen is 4000 mg from all sources in 24 hours.
Or acetaminophen (Tylenol) suppository 650 mgJump to med 650 mg, Rectal, Every 6 hours PRN, mild pain (1-3), fever, For temp greater than 100.4 F (38 C), Starting on Mon12/05/22 at 1952
Administer if oral route cannot be used. Maximum dose of acetaminophen is 4000 mg from all sources in 24 hours.
Group 3: ondansetron ODT (Zofran-ODT) disintegrating tablet 4 mgJump to med 4 mg, Oral, Every 8 hours PRN, nausea, vomiting, Starting on Mon12/05/22 at 1953
1st Line. If inadequate response within 60 minutes, proceed to next-line agent or contact provider if no further options ordered. Patient should allow tablet to dissolve on tongue. Do not remove from blister pack until just before administering.
Or ondansetron (Zofran) injection 4 mgJump to med 4 mg, IntraVENous, Every 6 hours PRN, nausea, vomiting, Starting on Mon12/05/22 at 1953
1st Line. Give IV if patient is unable to take orally. If inadequate response within 60 minutes, proceed to next-line agent or contact provider if no further options ordered.
Scheduled Medication Order 03/01/2023 03/02/2023 03/03/2023 amLODIPine (Norvasc) tablet 10 mg 10 mg, Oral, Daily, First dose on Mon02/28/23 at 1815 2110 (Given - Provider: Lizeth Shelby RN) 2058 (Given - Provider: Lizeth Shelby RN) amoxicillin-clavulanate (Augmentin) 875-125 MG per tablet 1 tablet (CANCELED) 1 tablet, Oral, 2 times daily, First dose on Mon02/28/23 at 2100, Suspected Indication (Select all that apply): Urinary Tract Infection 0938 (Given - Provider: Alma Turner RN)2109 (Given - Provider: Lizeth Shelby RN) 908 (Given - Provider: Tristan Champion LPN)2058 (Given - Provider: Lizeth Shelby RN) 0808 (Given - Provider: Tristan Champion LPN) baclofen (Lioresal) tablet 10 mg 10 mg, Oral, Daily, First dose on Mon02/28/23 at 1815 211 (Given - Provider: Lizeth Shelby RN) 2058 (Given - Provider: Lizeth Shelby RN) cholecalciferol (Vitamin D3) tablet 1,000 Units (CANCELED) 1,000 Units, Oral, Daily, First dose on Mon03/02/23 at 0900 0909 (Given - Provider: Tristan Champion LPN) enoxaparin (Lovenox) syringe 40 mg 40 mg, SubCUTAneous, Every 24 hours scheduled (Daily), First dose on Mon02/28/23 at 1815, Indication of Use: Prophylaxis-DVT/PE, Indications: Prophylaxis of Venous Thromboembolism 0938 (Given - Provider: Alma Turner RN) 09 (Given - Provider: Tristan Champion LPN) 0808 (Given - Provider: Tristan Champion LPN) ergocalciferol (Vitamin D2) capsule 1.25 mg 1.25 mg, Oral, Weekly, First dose on Mon03/03/23 at 0900 0808 (Given - Provider: Tristan Champion LPN) Influenza Vac A&B SA Adj quadrivalent (Fluad) vaccine 0.5 mL 0.5 mL, IntraMUSCular, Prior to discharge, Starting on Mon03/01/23 at 0900, For 1 dose insulin glargine (Lantus) injection 19 Units 19 Units, SubCUTAneous, Every morning, First dose on Mon03/01/23 at 1500 1848 (Given - Provider: Alma Turner RN) 0909 (Given - Provider: Tristan Champion LPN) 0809 (Given - Provider: Tristan Champion LPN) Insulin Lispro (Humalog) injection 0-12 Units 0-12 Units, SubCUTAneous, 3 times daily with meals, First dose on Mon02/28/23 at 1815, Medium Dose Correction Algorithm Glucose: Dose: LESS than 139 No Insulin 140-199 2 Unit 200-249 4 Units 250-299 6 Units 300-349 8 Units 350-400 10 Units Above 400 12 Units 0938 (Given - Provider: Alma Turner RN)1324 (Given - Provider: Alma Turner RN)1700 (Not Given - Provider: Alma Turner RN - Reason: Order parameters not met) 0909 (Given - Provider: Tristan Champion LPN)1300 (Given - Provider: Tristan Champion LPN)1832 (Given - Provider: Tristan Champion LPN) 0809 (Given - Provider: Tristan Champion LPN)1045 (Given - Provider: Randi Marquez, TONI) Insulin Lispro (Humalog) injection 10 Units 10 Units, SubCUTAneous, 3 times daily with meals, First dose (after last modification) on Mon03/02/23 at 1700 1832 (Given - Provider: Tristan Champion LPN) 0809 (Given - Provider: Tristan Champion LPN)1046 (Given - Provider: Randi Marquez, TONI) Insulin Lispro (Humalog) injection 16 Units (CANCELED) 16 Units, SubCUTAneous, 4 times daily before meals & nightly, First dose on Mon02/28/23 at 2100 0757 (Given - Provider: Alma Turner RN)1324 (Given - Provider: Alma Turner RN) Insulin Lispro (Humalog) injection 6 Units (CANCELED) 6 Units, SubCUTAneous, 4 times daily before meals & nightly, First dose (after last modification) on Mon03/01/23 at 1700 1848 (Given - Provider: Alma Turner RN)211 (Given - Provider: Lizeth Shelby RN) 06 (Given - Provider: Lizeth Shelby RN)1100 (Canceled Entry - Provider: Tristan Champion LPN) Insulin Lispro (Humalog) injection 6 Units (CANCELED) 6 Units, SubCUTAneous, 3 times daily with meals, First dose (after last modification) on Mon03/02/23 at 1300 1301 (Given - Provider: Tristan Champion LPN) levothyroxine (Synthroid, Levoxyl) tablet 125 mcg 125 mcg, Oral, Daily, First dose (after last modification) on Mon03/03/23 at 0600, Tube feeding (TF) interaction, obtain physician order to manage, recommend holding TF for 30 minutes before and after dose. 0602 (Given - Provider: Lizeth Shelby RN) levothyroxine (Synthroid, Levoxyl) tablet 150 mcg (CANCELED) 150 mcg, Oral, Daily, First dose on Mon03/01/23 at 0600, Tube feeding (TF) interaction, obtain physician order to manage, recommend holding TF for 30 minutes before and after dose. 0634 (Given - Provider: Mary Newell LPN) 0605 (Given - Provider: Lizeth Shelby RN) melatonin tablet 3 mg 3 mg, Oral, Nightly, First dose (after last modification) on Mon03/01/23 at 2100 2110 (Given - Provider: Lizeth Shelby RN) 2203 (Given - Provider: Lizeth Shelby RN) PARoxetine (Paxil) tablet 20 mg 20 mg, Oral, Nightly, First dose (after last modification) on Mon03/02/23 at 2100 2059 (Given - Provider: Lizeth Shelby RN) pramipexole (Mirapex) tablet 0.25 mg 0.25 mg, Oral, Nightly, First dose on Mon02/28/23 at 2100 2112 (Given - Provider: Lizeth Shelby RN) 2100 (Given - Provider: Lizeth Shelby RN) rosuvastatin (Crestor) tablet 10 mg 10 mg, Oral, Daily, First dose on Mon02/28/23 at 1815 2110 (Given - Provider: Lizeth Shelby RN) 2100 (Given - Provider: Lizeth Shelby RN) Continuous Medication Order 03/01/2023 03/02/2023 03/03/2023 sodium chloride 0.9 % infusion (CANCELED) 75 mL/hr, IntraVENous, Continuous, Starting on Mon02/28/23 at 1815 1327 (New Bag - Provider: Alma Turner RN)1707 (Stopped - Provider: Alma Turner RN) PRN Medication Order 03/01/2023 03/02/2023 03/03/2023 acetaminophen (Tylenol) suppository 650 mg(Linked Group 1) 650 mg, Rectal, Every 6 hours PRN, mild pain (1-3), fever, For temp greater than 100.4 F (38 C), Starting on Mon02/28/23 at 1804, Administer if oral route cannot be used. Maximum dose of acetaminophen is 4000 mg from all sources in 24 hours. 0635 (See Alternative - Provider: Mary Newell LPN) 1618 (See Alternative - Provider: Tristan Champion LPN) acetaminophen (Tylenol) tablet 650 mg(Linked Group 1) 650 mg, Oral, Every 6 hours PRN, mild pain (1-3), fever, For temp greater than 100.4 F (38 C), Starting on Mon02/28/23 at 1804, Maximum dose of acetaminophen is 4000 mg from all sources in 24 hours. 0635 (Given - Provider: Mary Newell LPN) 1618 (Given - Provider: Tristan Champion LPN) albuterol 108 (90 Base) MCG/ACT inhaler 2 puff 2 puff, Inhalation, Every 6 hours PRN, wheezing, Starting on Mon02/28/23 at 1804 busPIRone (Buspar) tablet 5 mg 5 mg, Oral, 2 times daily PRN, anxiety, Starting on Mon03/01/23 at 1221 chlorhexidine (Hibiclens) 4 % liquid Topical, Daily PRN, wound care, Starting on Mon03/01/23 at 1453, Right buttock -cleanse with hibiclens and apply alginate and foam . Daily and as needed. dextrose 5 % infusion 100 mL/hr, IntraVENous, PRN, Blood sugar less than 70mg/dL, Starting on Mon02/28/23 at 1804, Start infusion following administration of dextrose 50% or glucagon. dextrose 50 % solution 12.5 g 12.5 g, IntraVENous, PRN, low blood sugar, Blood glucose less than 70 mg/dL and patient NOT ALERT or NPO., Starting on Mon02/28/23 at 1353, If patient does not respond within 5 minutes, repeat dose x1. Start D5W at 100 mL/hour until ordering provider can be reached. Repeat blood glucose in 15 minutes. If blood glucose is less than 70 mg/dL, repeat treatment and recheck blood glucose in 15 minutes x2. If using Glucostabilizer, dose as instructed per system. glucagon (human recombinant) injection 1 mg 1 mg, IntraMUSCular, PRN, low blood sugar, Blood glucose less than 70 mg/dL and patient NOT ALERT or NPO and does not have IV access., Starting on Mon02/28/23 at 1804, After administration, attempt intravenous access and start D5W at 100 mL/hr. Repeat blood glucose in 15 minutes x2 and notify provider. glucose oral gel 15 g 15 g, Oral, As needed, low blood sugar, Starting on Mon02/28/23 at 1353, If blood glucose less than 50 mg/dL and patient ALERT and NOT NPO, give 2 tubes glucose gel. If blood glucose less than 70 mg/dL and patient ALERT and NOT NPO, give 1 tube glucose gel. Repeat blood glucose in 15 minutes. If blood glucose is less than 70 mg/dL, repeat treatment and recheck blood glucose in 15 minutes x2 and notify provider. melatonin tablet 3 mg 3 mg, Oral, Nightly PRN, sleep, Starting on Mon03/01/23 at 1239 ondansetron (Zofran) injection 4 mg(Linked Group 2) 4 mg, IntraVENous, Every 6 hours PRN, nausea, vomiting, Starting on Mon02/28/23 at 1804, 1st Line. Give IV if patient is unable to take orally. If inadequate response within 60 minutes, proceed to next-line agent or contact provider if no further options ordered. ondansetron ODT (Zofran-ODT) disintegrating tablet 4 mg(Linked Group 2) 4 mg, Oral, Every 8 hours PRN, nausea, vomiting, Starting on Mon02/28/23 at 1804, 1st Line. If inadequate response within 60 minutes, proceed to next-line agent or contact provider if no further options ordered. Patient should allow tablet to dissolve on tongue. Do not remove from blister pack until just before administering. polyethylene glycol (PEG) 3350 (Miralax) packet 17 g 17 g, Oral, Daily PRN, constipation, Starting on Mon02/28/23 at 1804, 1st line for treatment of constipation - give scheduled if no bowel movement in past 24 hours. zolpidem (Ambien) tablet 5 mg (CANCELED) 5 mg, Oral, Nightly PRN, sleep, Starting on Mon03/01/23 at 0007 0023 (Given - Provider: Mary Newell LPN) Linked Groups Order Group 1: acetaminophen (Tylenol) tablet 650 mgJump to med 650 mg, Oral, Every 6 hours PRN, mild pain (1-3), fever, For temp greater than 100.4 F (38 C), Starting on Mon02/28/23 at 1804
Maximum dose of acetaminophen is 4000 mg from all sources in 24 hours.
Or acetaminophen (Tylenol) suppository 650 mgJump to med 650 mg, Rectal, Every 6 hours PRN, mild pain (1-3), fever, For temp greater than 100.4 F (38 C), Starting on Mon02/28/23 at 1804
Administer if oral route cannot be used. Maximum dose of acetaminophen is 4000 mg from all sources in 24 hours.
Group 2: ondansetron ODT (Zofran-ODT) disintegrating tablet 4 mgJump to med 4 mg, Oral, Every 8 hours PRN, nausea, vomiting, Starting on Mon02/28/23 at 1804
1st Line. If inadequate response within 60 minutes, proceed to next-line agent or contact provider if no further options ordered. Patient should allow tablet to dissolve on tongue. Do not remove from blister pack until just before administering.
Or ondansetron (Zofran) injection 4 mgJump to med 4 mg, IntraVENous, Every 6 hours PRN, nausea, vomiting, Starting on Mon02/28/23 at 1804
1st Line. Give IV if patient is unable to take orally. If inadequate response within 60 minutes, proceed to next-line agent or contact provider if no further options ordered.
Goals (unrecognized section and content) Goals may be documented in a n alternate sectionGoals may be documented in an alternate sectionGoals may be documented in an alternate sectionGoals may be documented in an alternate sectionGoals may be documented in an alternate sectionGoals may be documented in an alternate sectionGoals may be documented in an alternate sectionGoals may be documented in an alternate section FOR RECORDS PERTAINING TO PATIENTS WHO ARE OR HAVE BEEN ENROLLED IN A CHEMICAL DEPENDENCY/SUBSTANCEABUSE PROGRAM, SOME INFORMATION MAY BE OMITTED. This clinical summary was aggregated from multiple sources. Caution should be exercised in using it in the provision of clinical care. This summary normalizes information from multiple sources, and as a consequence, information in this document may materially change the coding, format and clinical context of patient data. In addition, data may be omitted in some cases. CLINICAL DECISIONS SHOULD BE BASED ON THE PRIMARY CLINICAL RECORDS. [employer] provides no warranty or guarantee of the accuracy or completeness of information in this document.
[2024-11-28 08:22] LABS: Anion Gap 11 (5-15); BUN 35 mg/dL (4-19); BUN/Creat Ratio 28.8 RATIO (10-20); Calcium,Total 9.5 mg/dL (7.6-11.0); Carbon Dioxide 29.5 mmol/L (21.0-32.0); Chloride 98 mmol/L (98-108); Creatinine, Serum 1.21 mg/dL (0.70-1.20); EST Glomerular Filtration Rate 45 (>60); Glucose 126 mg/dL (70-99); Magnesium 2.4 mg/dL (1.5-2.2); Potassium 4.2 mmol/L (3.3-5.1); Sodium Level 139 mmol/L (133-145)
== END ==
LOC: OLS.SWAL 05:00
PROVIDERS: PCP Internal Medicine; Visit Provider Internal Medicine
DX: I89.0 Lymphedema, not elsewhere classified (principal)
CPT/HCPCS: 36415; 80048; 83735

== ENCOUNTER → 2024-12-12 | Outpatient (REF) | payer MEDICARE, MEDICAID, SELFPAY ==
[2024-12-12 09:33] LABS: Anion Gap 9 (5-15); BUN 28 mg/dL (4-19); BUN/Creat Ratio 28.8 RATIO (10-20); Calcium,Total 8.7 mg/dL (7.6-11.0); Carbon Dioxide 27.9 mmol/L (21.0-32.0); Chloride 101 mmol/L (98-108); Creatinine, Serum 0.98 mg/dL (0.70-1.20); EST Glomerular Filtration Rate 58 (>60); Glucose 148 mg/dL (70-99); Magnesium 2.2 mg/dL (1.5-2.2); Sodium Level 139 mmol/L (133-145)
== END ==
LOC: OLS.SWAL 07:40
PROVIDERS: PCP Internal Medicine; Visit Provider Internal Medicine
DX: I89.0 Lymphedema, not elsewhere classified (principal); R60.9 Edema, unspecified
CPT/HCPCS: 36415; 80048; 83735

== ENCOUNTER → 2024-12-24 00:15 | Outpatient (REF) | payer MEDICARE, MEDICAID, SELFPAY ==
[2024-12-24 07:49] LABS: Mucous, Urine 0 SEEN /hpf (<or=2+); Red Blood Cells-Urine 0 SEEN /hpf (0-5)
[2024-12-24 08:33] LABS: Color, Urine Yellow (Yellow); Glucose, Dipstick Normal (Normal); Ketone-Dipstick Negative (Negative); Leukocyte Esterase-Dipstick Negative /ul (Negative); Nitrite-Dipstick Negative (Negative); Occult Blood-Urine Negative /ul (Negative); Protein-Dipstick 15 mg/dl (Negative); Specific Gravity, Urine 1.010 (1.002-1.030); Urine Bilirubin Dipstick Negative (Negative)
[2024-12-24 08:45] LABS: Squamous Epithelial Cells - UA 0-5 SEEN /hpf (5-10)
== END ==
LOC: OLS.SWAL 00:15
PROVIDERS: PCP Internal Medicine; Visit Provider Internal Medicine
DX: N39.0 Urinary tract infection, site not specified (principal)
CPT/HCPCS: 81001; 87077; 87086; 87088; 87186

== ENCOUNTER → 2024-12-26 05:00 | Outpatient (REF) | payer MEDICARE, MEDICAID, SELFPAY ==
[2024-12-26 09:56] LABS: Anion Gap 9 (5-15); BUN 30 mg/dL (4-19); BUN/Creat Ratio 24.9 RATIO (10-20); Calcium,Total 8.7 mg/dL (7.6-11.0); Carbon Dioxide 28.5 mmol/L (21.0-32.0); Chloride 103 mmol/L (98-108); Glucose 162 mg/dL (70-99); Magnesium 2.2 mg/dL (1.5-2.2); Potassium 4.5 mmol/L (3.3-5.1)
== END ==
LOC: OLS.SWAL 05:00
PROVIDERS: PCP Internal Medicine; Visit Provider Internal Medicine
DX: I89.0 Lymphedema, not elsewhere classified (principal); R60.9 Edema, unspecified
CPT/HCPCS: 36415; 80048; 83735

== ENCOUNTER → 2025-01-09 | Outpatient (REF) | payer MEDICARE, MEDICAID, SELFPAY ==
[2025-01-09 08:39] LABS: Magnesium 2.1 mg/dL (1.5-2.2)
[2025-01-09 08:42] LABS: Anion Gap 8 (5-15); BUN 24 mg/dL (4-19); BUN/Creat Ratio 22.0 RATIO (10-20); Calcium,Total 9.0 mg/dL (7.6-11.0); Carbon Dioxide 29.7 mmol/L (21.0-32.0); Chloride 103 mmol/L (98-108); Glucose 78 mg/dL (70-99); Potassium 4.5 mmol/L (3.3-5.1)
== END ==
LOC: OLS.SWAL 07:00
PROVIDERS: PCP Internal Medicine; Visit Provider Internal Medicine
DX: I89.0 Lymphedema, not elsewhere classified (principal); R60.9 Edema, unspecified
CPT/HCPCS: 36415; 80048; 83735

== ENCOUNTER → 2025-01-23 05:00 | Outpatient (REF) | payer MEDICARE, MEDICAID, SELFPAY ==
--- OUTSIDE RECORDS SUMMARY | 2025-01-23 04:16 | XMS RPT_ITS | CCD ---
Author Organization [facility] Care Team Providers Care Chemist Enzymes Name Role Phone Shiv Lopez Unavailable Unavailable PROVIDER, UNKNOWN Unavailable Unavailable Shiv Lopez Unavailable Unavailable Shiv Lopez Primary Care Provider Shiv Lopez Primary Care Provider Shiv Lopez Primary Care Provider [phone] hSiv Lopez MD Primary Care Provider Shiv Lopez MD Primary Care Provider Shiv Lopez MD Primary Care Provider Shiv Lopez MD Primary Care Provider GABRIELLE FINCH Admitting Unavailable JOHN, SHIV Primary Care Unavailable CHARMAINE LOVELL Consulting Unavailable GABRIELLE FINCH Attending Unavailable ADAM HOLT Consulting Unavailable JOHN, SHIV Primary Care Unavailable KATIA GRANADOS Attending Unavailable JOHN, SHIV Primary Care Unavailable KATIA GRANADOS Attending Unavailable LENARD MAGALLANES Attending Unavailable JOHN, SHIV Primary Care Unavailable John TOWNSEND, Dr. Chaney Primary Care Provider Dr. Melissa Reed MD Attending Provider Unavaildiony Reed MD, Dr. Torres Primary Care Provider Doris Argueta MD, Dr. Betancur Attending Provider Dr. Gypsy Argueta MD Referring Provider Dr. Melissa Reed MD Referring Provider Unavaildiony Lopez MD, Dr. Chaney Primary Care Provider [phone] Brianna TOWNSEND, Dr. Torres Attending Provider Unavaildiony Lopez MD, Dr. Chaney Primary Care Provider [phone] Brianna TOWNSEND, Dr. Torres Attending Provider Unavaildiony Reed MD, Dr. Torres Primary Care Provider Unava renetta Reed MD, Dr. Torres Attending Provider Unavaila ble Gukasia Ryley THOMPSONyothi Attending Unavailable Gudla, Melissa Primary Care Unavailable Shiv Lopez Primary Care Unavailable Gudla OLSRyleyMelissa Attending Unavailable Shiv Lopez Primary Care Unavailable Gudla Ryley THOMPSONyothi Attending Unavailable Shiv Lopez Primary Care Unavailable Gudla Ryley THOMPSONyothi Attending Unavailable Gudla, Melissa Primary Care Unavailable Gudla Ryley THOMPSONyothi Attending Unavailable Gudla Ryley THOMPSONyothi Attending Unavailable Gudla, Melissa Primary Care Unavailable Gudla Ryley THOMPSONyothi Attending Unavailable Gudla, Melissa Primary Care Unavailable Gudla Ryley THOMPSONyothi Attending Unavailable Gudla, Melissa Primary Care Unavailable Shiv Lopez Primary Care Unavailable Gudla Ryley THOMPSONyothi Attending Unavailable Gudla Ryley THOMPSONyothi Referring Unavailable Gudla Ryley THOMPSONyothi Attending Unavailable Gudla, Melissa Primary Care Unavailable Basali, Ayman Referring Unavailable Basali Ayman Attending Unavailable Gudla, Melissa Primary Care Unavailable Gudla Ryley THOMPSONyothi Attending Unavailable Gudla, Melissa Primary Care Unavailable Gudla Ryley THOMPSONyothi Attending Unavailable Gudla, Melissa Primary Care Unavailable Gudla JAY Melissa Referring Unavailable Gudla JAY Melissa Attending Unavailable Gudla, Melissa Primary Care Unavailable Gudla, Melissa Primary Care Unavailable Gudla Ryley THOMPSONyothi Attending Unavailable Gudla, Melissa Primary Care Unavailable Gudla JAY Melissa Attending Unavailable Gudla, Melissa Primary Care Unavailable Gudla JAY, Melissa Attending Unavailable Gudla, Melissa Primary Care Unavailable Gudla Ryley THOMPSONyothi Attending Unavailable Shiv Lopez Primary Care Unavailable Gudla Ryley THOMPSONyothi Attending Unavailable Gudla JAY, Melissa Attending Unavailable Gudla, Melissa Primary Care [...] Care Unavailable Gudla OLS, Melissa Attending Unavailable [facility] Primary Care Unavailable Gudla OLS, Melissa Attending Unavailable [facility], [facility] Primary Care Unavailable Gudla OLS, Melissa Attending Unavailable Allergies Allergy Classification Reported Allergen(s) Allergy Type Date of Onset Reaction(s) Facility Opioid Agonists (2 sources) Codeine Drug Allergy 5 Itching [facility] (20 sources) Codeine Drug Allergy 5 Itching [place] (20 sources) Oxycodone-Aspiri n Propensity to adverse reactions to drug 5 [place] (20 sources) oxyCODONE Drug Allergy 1 Hives [facility] (20 sources) Vancomycin Drug Allergy 1 Rash [facility] (20 sources) Other Allergy to substance 3 [facility] (16 sources) Aspirin Drug Allergy 1 Other [facility] (2 sources) Aluminum aspirin Drug Allergy 1 [facility] (1 source) Aspirin Drug Allergy 1 [facility] Repository (1 source) oxyCODONE Drug Allergy 1 [facility] Repository (1 source) Vancomycin Drug Allergy 1 [facility] Repository Medications Current Medications Medication Drug Class(es) Dates Sig (Normalized) Sig (Original) acetaminophen 500 mg oral tablet (20 sources) Start: 03-15-2023 take 2 tablets by mouth every six hours as needed for pain Acetaminophen 500 mg Tablet Active 1000 mg PO EVERY 6 HOURS as needed for Pain 1-10 0 March 15, 2023 12:00am Start: 03-15-2023 [...] oral solution (1 source) alpha-Adrenergic Agonist, Uncompetitive G-uttelf-G-aspartat e Receptor Antagonist, Sigma-1 Agonist Start: 09-10-2018 take 10 mL by mouth four times daily as needed for cough brompheniramine-p seudoephedrine-DM 2-30-10 MG/5ML syrup Take 10 mLs by mouth 4 times daily as needed for Cough 240 mL 0 09/10/2018 Active busPIRone hydrochloride 5 mg oral tablet (20 sources) Start: 03-01-2023 End: 04-02-2023 take 1 [...] 07/27/2017 Active cephalexin 500 mg oral capsule (16 sources) Cephalosporin Antibacterial Start: 03-15-2023 take 1 [...] Active docusate sodium 50 mg / sennosides, group home 8.6 mg oral tablet (20 sources) Start: 03-15-2023 Sennosides-Docusa te Sodium (Stool [...] Active doxycycline monohydrate 100 mg oral capsule (16 sources) Tetracycline-class Drug Start: 03-17-2023 take 1 [...] every week ergocalciferol (Vitamin D-2) 1.25 MG (96857 UT) capsule Indications: Vitamin D deficiency Take 1 capsule (1.25 mg) by mouth 1 (one) time per week. 90 capsule 1 07/18/2022 Active Start: 06-10-2021 take 1 capsule by mo ut every week vitamin D (ERGOCALCIFEROL) 1.25 MG (90048 UT) CAPS capsule Take 1 capsule by mouth once a week 12 capsule 1 06/10/2021 Active Start: 12-23-2020 Ergocalciferol (Vitamin D2) (Vitamin D2) 1,250 mcg (50,000 unit) capsule Active 1250 ug PO EVERY WEEK December 23, 2020 12:00am Start: 01-16-2020 take 1 capsule by mo uth every week vitamin D (ERGOCALCIFEROL) 1.25 MG (53381 UT) CAPS capsule Take 1 capsule by mouth once a week 12 capsule 1 01/16/2020 Active Start: 10-01-2018 ergocalciferol (DRISDOL) 31247 units capsule 1 capsule every week 8 capsule 1 10/01/2018 Active furosemide 40 mg oral tablet (16 sources) Loop Diuretic Start: 03-15-2023 take 1 [...] Active hydrALAZINE hydrochloride 25 mg oral tablet (20 sources) Arteriolar Vasodilator Start: 03-03-2023 End: 05-02-2023 [...] 03/14/2018 Active Insulin Glargine 100 unit/mL solution (6 sources) Start: 03-03-2023 Insulin Glargi ne 100 [...] Active ammonium lactate 120 mg/ml topical lotion (16 sources) Start: 03-15-2023 Ammonium Lacta te 12 [...] 150 mcg, Oral, Daily, First dose on 12/05/22 at 1955 Tube feeding (TF) interaction, obtain [...] 11/13/2018 Active melatonin 3 mg oral capsule (20 sources) Start: 03-03-2023 take 1 capsule by mouth at bedtime Melatonin 3 mg capsule Active 3 mg PO AT BEDTIME March 03, 2023 12:00am Start: 03-01-2023 End: 03-03-2023 take 1 tablet by mouth once daily melatonin 3 MG tablet Take 1 tablet (3 mg) by mouth Nightly. 0 03/03/2023 Active Menthol / Zinc Oxide (16 sources) Start: 03-15-2023 Menthol-Zinc O xide (Calmoseptine) [...] 05/06/2021 Active nystatin 100 unt/mg topical powder (16 sources) Polyene Antifungal Start: 03-15-2023 Nystatin (Nyamyc) [...] Start: 11-13-2018 take 1 tablet by goran once daily in the morning PARoxetine (PAXIL) 20 MG tablet Take 1 tablet by mouth every morning 90 tablet 0 11/13/2018 Active Petrolatum (16 sources) Start: 03-15-2023 Petrolatum 33% (Eucerin Eqivalent) [...] mg / trimethoprim 160 mg oral tablet (17 sources) Dihydrofolate Reductase Inhibitor Antibacterial, Sulfonamide Antimicrobial [...] tartrate 2 mg extended release oral capsule (16 sources) Cholinergic Muscarinic Antagonist Start: 03-15-2023 take 1 capsule by mouth once daily Tolterodine 2 mg Capsule,Extended Release 24hr Active 2 mg PO DAILY 0 March 15, 2023 12:00am traMADol hydrochloride 50 [...] Active triamcinolone acetonide 0.001 mg/mg topical ointment (16 sources) Corticosteroid Start: 03-15-2023 Triamcinolone Acetonide 0.1 % Ointment Active 1 NMA TOPICAL TWICE A DAY 0 March 15, 2023 12:00am Please contact the information source for Protocol details. Completed/Discontinued Medications Medication Drug Class(es) Dates Sig (Normalized) Sig (Original) [id number] 200 actuat albuterol 0.09 mg/actuat metered dose [...] CLEANUP) Start: 06-04-2019 Continuous Blo od Gluc Card Checker (FREESTYLE EVIN 14 DAY READER) JO LENGTH [...] mg tablet Discontinued 25 mg PO DAILY 30 December 24, 2020 12:00am January 29, 2021 [...] 08/05/2021 Discontinued (LIST CLEANUP) polyethylene glycol 3350 36202 mg powder for oral solution (3 sources) Osmotic Laxative Start: 02-28-2023 End: 03-03-2023 take 17 g by mouth every twenty-four hours as needed for constipation 17 g, Oral, Daily PRN, constipation, Starting on Tu02/28/23 at 1804 1st line for treatment of constipation - give scheduled if no bowel movement in past 24 hours. Start: 12-05-2022 End: 12-07-2022 take 17 g by mouth every twenty-four hours as needed for constipation 17 g, Oral, Daily PRN, constipation, Starting on 12/05/22 at 1953 1st line for treatment of constipation - give scheduled if no bowel movement in past 24 hours. polyethylene glycol 3350 [id number] mg / potassium chloride 2970 mg / sodium bicarbonate 6740 mg / sodium chloride 5860 mg / sodium sulfate 64503 mg powder for oral solution (2 sources) [...] Start: 12-28-2020 take 1 tablet by goran th once daily potassium chloride (KLOR-CON M) 20 [...] at 1900 spironolactone 25 mg oral tablet (18 sources) Aldosterone Antagonist Start: 03-01-2021 End: 03-15-2023 [...] [Essential (primary) hypertension] Onset: 5 01-14-2015 Chronic Heart valve disorders (16 sources) Mitral valve annular calcification; Translations: [Mitral [...] 01-16-2020 Chronic Other and ill-defined heart disease (16 sources) Right cardiac ventricular dilatation; Translations: [Cardiomegaly] 01-26-2021 Chronic Other connective tissue disease (20 sources) Pain in toe; Translations: [Pain in left toe(s)] 03-08-2023 Episodic Other connective tissue disease (16 sources) Swelling of lower limb; Translations: [Other [...] Chronic Other diseases of veins and lymphatics (16 sources) Lymphedema; Translations: [Lymphedema, not elsewhere classified] 03-08-2023 Chronic Other diseases of veins and lymphatics (8 sources) Lymphedema, not elsewhere classified; Translations: [Other lymphedema] Onset: 5 03-18-2023 Chronic Other diseases of veins and lymphatics (16 sources) Venous stasis; Translations: [Other specified disorders of veins] 12-23-2020 Episodic Other diseases of veins and lymphatics (16 sources) Peripheral venous insufficiency; Translations: [Venous insufficiency [...] conditions (not mental disorders or infectious disease) (16 sources) Echocardiogram abnormal; Translations: [Abnormal findings on diagnostic imaging of heart and coronary circulation] 12-24-2020 Episodic Other upper respiratory infections (16 sources) Chronic sinusitis; Translations: [Other chronic sinusitis] Onset: 3 10-25-2022 Chronic Pulmonary heart disease (16 sources) Pulmonary arterial hypertension; Translations: [Secondary pulmonary arterial hypertension] 01-26-2021 Chronic Residual codes; unclassified (20 sources) Insomnia; Translations: [Insomnia, unspecified] Onset: 5 04-06-2015 Episodic Residual codes; unclassified (16 sources) Edema of lower extremity; Translations: [Localized edema] 12-29-2020 Episodic Residual codes; unclassified (16 sources) Edema; Translations: [Edema, unspecified] 03-03-2023 Episodic [...] unspecified] Onset: 3 Resolved: 3 12-05-2022 Episodic Genitourinary symptoms and ill-defined conditions (20 sources) Increased frequency of urination; Translations: [Frequency of micturition] Onset: 3 10-04-2022 Episodic Mood disorders (20 sources) Mood disorders Onset: 2 Resolved: 3 09-30-2022 Open wounds of head; neck; and trunk (20 sources) Laceration of head; Translations: [Scalp laceration] Onset: 9 Resolved: 4 06-03-2019 Episodic Other aftercare (5 sources) Polypharmacy ; Translations: [Other intermediate manager (current) drug therapy] Onset: 3 03-01-2023 Episodic Other aftercare (2 sources) Other intermediate manager (current) drug therapy; Translations: [Other skilled nursing (current) drug therapy] Onset: 3 Episodic Other aftercare (2 sources) supervisor intermediates (current) use of insulin; Translations: [shelter (current) use of insulin (HCC)] Onset: 3 [...] Range Facility Basic Metabolic Profile (BMP )on 01-09-2025 BUN/CRE 22.0 RATIO High 10-20 [facility] Comment on above: Performed By: #### L 501.5200, [id number] #### [facility] [address] [place], [address] Calcium [Mass/Vol] 9.0 mg/dL Normal 7.6-11.0 [facility] Comment on above: Performed By: #### L [id number], [id number] #### [facility] [address] [place], [address] Chloride [Moles/Vol] 103 mmol/L Normal 98-108 [facility] Comment on above: Performed By: #### L [id number], [id number] #### [facility] [address] [place], [address] CO2 [Moles/Vol] 29.7 mmol/L Normal 21.0-32.0 [facility] Comment on above: Performed By: #### L [id number], [id number] #### [facility] [address] [place], [address] Creatinine [Mass/Vol] 1.08 mg/dL Normal 0.70-1.20 [facility] Comment on above: Performed By: #### L [id number], [id number] #### [facility] [address] [place], [address] GAP 8 Normal 5-15 [facility] Comment on above: Performed By: #### L [id number], [id number] #### [facility] [address] [place], [address] GFR/1.73 sq M.predicted among non-blacks MDRD (S/P/Bld) [Vol rate/Area] 52 mL/min/{1.73_m2} Low >60 [facility] Comment on above: Result Comment: mL/m in/1.73m2 CKD-EPI Creatinine Equation (2020) Performed By: #### L [id number], [id number] #### [facility] [address] [place], [address] Glucose [Mass/Vol] 78 mg/dL Normal 70-99 [facility] Comment on above: Performed By: #### L [id number], [id number] #### [facility] [address] [place], [address] Potassium [Moles/Vol] 4.5 mmol/L Normal 3.3-5.1 [facility] Comment on above: Result Comment: Hemo lysis present, Results??could be affected. ?? Performed By: #### L [id number], [id number] #### [facility] [address] [place], [address] Sodium [Moles/Vol] 141 mmol/L Normal 133-145 [facility] Comment on above: Performed By: #### L 501.5200, [id number] #### [facility] [address] [place], [address] Urea nitrogen [Mass/Vol] 24 mg/dL High 4-19 [facility] Comment on above: Performed By: #### L 501.5200, [id number] #### [facility] [address] [place], [place], [id number] Magnesiumon 01-09-2025 Magnesium [Mass/Vol] 2.1 mg/dL Normal 1.5-2.2 [facility] Comment on above: Performed By: #### L 501.5200, [id number] #### [facility] [address] [place], [place], [id number] Urine Cultureon 12-27-2024 [facility] Copy of report sent to Infection Control Printer [id number] 12/26/24 0739 FELICITAS. Urine Culture CALLED X2, RESULTS CALLED TO DIVYA AND LEFT VOICEMAIL MESSAGE WITH SCOTTY MUÑOZ 12/26/24 3671 Dora Platt. Escherichia coli [place] Count 50,000-80,000 MARKER ESBL producing OrganismA MARKER ESBL producing [...] R TMP SMX Islt LAVINIA >=320 R Escherichia coli: REACTION Amikacin Islt LAVINIA 2 S Eravacycline Islt LAVINIA <=0.12 Imipenem Islt LAVINIA <=0.25 S Tobramycin Islt LAVINIA <=1 S Normal [facility] Comment on above: Performed By: #### L [id number], [id number] #### [facility] [address] [place], [place], [id number] Basic Metabolic Profile (BMP )on 12-26-2024 BUN/CRE 24.9 RATIO High 10-20 [facility] Comment on above: Order Comment: CLEAN CATCH Performed By: #### M 100.2200, [id number] #### [facility] [address] [place], [address] Calcium [Mass/Vol] 8.7 mg/dL Normal 7.6-11.0 [facility] Comment on above: Order Comment: CLEAN CATCH Performed By: #### M 100.2200, [id number] #### [facility] [address] [place], [address] Chloride [Moles/Vol] 103 mmol/L Normal 98-108 [facility] Comment on above: Order Comment: CLEAN CATCH Performed By: #### M 100.2200, [id number] #### [facility] [address] [place], [address] CO2 [Moles/Vol] 28.5 mmol/L Normal 21.0-32.0 [facility] Comment on above: Order Comment: CLEAN CATCH Performed By: #### M 100.2200, [id number] #### [facility] [address] [place], [address] Creatinine [Mass/Vol] 1.19 mg/dL Normal 0.70-1.20 [facility] Comment on above: Order Comment: CLEAN CATCH Performed By: #### M 100.2200, [id number] #### [facility] [address] [place], [address] GAP 9 Normal 5-15 [facility] Comment on above: Order Comment: CLEAN CATCH Performed By: #### M 100.2200, [id number] #### [facility] [address] [place], [address] GFR/1.73 sq M.predicted among non-blacks MDRD (S/P/Bld) [Vol rate/Area] 46 mL/min/{1.73_m2} Low >60 [facility] Comment on above: Order Comment: CLEAN CATCH Result Comment: mL/m in/1.73m2 CKD-EPI Creatinine Equation (2020) Performed By: #### M 100.2200, [id number] #### [facility] [address] [place], [address] Glucose [Mass/Vol] 162 mg/dL High 70-99 [facility] Comment on above: Order Comment: CLEAN CATCH Performed By: #### M 100.2200, [id number] #### [facility] [address] [place], [address] Potassium [Moles/Vol] 4.5 mmol/L Normal 3.3-5.1 [facility] Comment on above: Order Comment: CLEAN CATCH Performed By: #### M 100.2200, [id number] #### [facility] [address] [place], [address] Sodium [Moles/Vol] 141 mmol/L Normal 133-145 [facility] Comment on above: Order Comment: CLEAN CATCH Performed By: #### M 100.2200, [id number] #### [facility] [address] [place], [address] Urea nitrogen [Mass/Vol] 30 mg/dL High 4-19 [facility] Comment on above: Order Comment: CLEAN CATCH Performed By: #### M 100.2200, [id number] #### [facility] [address] [place], [address] Magnesiumon 12-26-2024 Magnesium [Mass/Vol] 2.2 mg/dL Normal 1.5-2.2 [facility] Comment on above: Order Comment: CLEAN CATCH Performed By: #### M 100.2200, [id number] #### [facility] [address] [place], [address] Urinalysis, Completeon 12-24 BACTERIA RARE Normal None Seen [facility] Comment on above: Order Comment: CLEAN CATCH Performed By: #### M 100.2200, [id number] #### [facility] [address] [place], [address] EPI,SQUAMOUS 0-5 SEEN Normal 5-10 [facility] Comment on above: Order Comment: CLEAN CATCH Performed By: #### M 100.2200, [id number] #### [facility] [address] [place], [address] Mucus Ql (Urine sed) 0 SEEN Normal [facility] Comment on above: Order Comment: CLEAN CATCH Performed By: #### M 100.2200, [id number] #### [facility] [address] [place], [address] RBC 0 SEEN Normal 0-5 [facility] Comment on above: Order Comment: CLEAN CATCH Performed By: #### M 100.2200, [id number] #### [facility] [address] [place], [address] WBC 0 SEEN Normal 0-5 [facility] Comment on above: Order Comment: CLEAN CATCH Performed By: #### M 100.2200, [id number] #### [facility] [address] [place], [address] Basic Metabolic Profile (BMP )on 12-12-2024 BUN/CRE 28.8 RATIO High 10-20 [facility] Comment on above: Performed By: #### M 100.2200, [id number] #### [facility] [address] [place], [address] Calcium [Mass/Vol] 8.7 mg/dL Normal 7.6-11.0 [facility] Comment on above: Performed By: #### M 100.2200, [id number] #### [facility] [address] [place], [address] Chloride [Moles/Vol] 101 mmol/L Normal 98-108 [facility] Comment on above: Performed By: #### M 100.2200, [id number] #### [facility] [address] [place], [address] CO2 [Moles/Vol] 27.9 mmol/L Normal 21.0-32.0 [facility] Comment on above: Performed By: #### M 100.2200, [id number] #### [facility] [address] [place], [address] Creatinine [Mass/Vol] 0.98 mg/dL Normal 0.70-1.20 [facility] Comment on above: Performed By: #### M 100.2200, [id number] #### [facility] [address] [place], [address] GAP 9 Normal 5-15 [facility] Comment on above: Performed By: #### M 100.0, [id number] #### [facility] [address] [place], [address] GFR/1.73 sq M.predicted among non-blacks MDRD (S/P/Bld) [Vol rate/Area] 58 mL/min/{1.73_m2} Low >60 [facility] Comment on above: Result Comment: mL/m in/1.73m2 CKD-EPI Creatinine Equation (2020) Performed By: #### M 100.2200, [id number] #### [facility] [address] [place], [address] Glucose [Mass/Vol] 148 mg/dL High 70-99 [facility] Comment on above: Performed By: #### M 100.2200, [id number] #### [facility] [address] [place], [address] Potassium [Moles/Vol] 4.0 mmol/L Normal 3.3-5.1 [facility] Comment on above: Performed By: #### M 100.2200, [id number] #### [facility] [address] [place], [address] Sodium [Moles/Vol] 139 mmol/L Normal 133-145 [facility] Comment on above: Performed By: #### M 100.2200, [id number] #### [facility] [address] [place], [address] Urea nitrogen [Mass/Vol] 28 mg/dL High - [facility] Comment on above: Performed By: #### M 100.2200, [id number] #### [facility] [address] [place], [address] Magnesiumon 12-12-2024 Magnesium [Mass/Vol] 2.2 mg/dL Normal 1.5-2.2 [facility] Comment on above: Performed By: #### M 100.2200, [id number] #### [facility] [address] [place], [address] Anion gap in Serum or Plasma Ordered By: Melissa Reed on 11-28-2024 Anion gap [Moles/Vol] 11 mmol/L -15 [facility] BUN/creatinine ratioOrdered By: Melissa Reed on 11-28-2024 Urea nitrogen/Creatinine [Mass ratio] 28.8 mg/mg High - [facility] Basic Metabolic Profile (BMP )on 11-28-2024 BUN/CRE 28.[address] [facility] - [facility] Comment on above: Order Comment: 157 Performed By: #### M 100.2200, [id number] #### [facility] [address] [place], [address] Calcium [Mass/Vol] 9.5 mg/dL Normal 7.6-11.0 [facility] Comment on above: Order Comment: 157 Performed By: #### M 100.2200, [id number] #### [facility] [address] [place], [address] Chloride [Moles/Vol] 98 mmol/L Normal 98-108 [facility] Comment on above: Order Comment: 157 Performed By: #### M 100.2200, [id number] #### [facility] [address] [place], [address] CO2 [Moles/Vol] 29.5 mmol/L Normal 21.0-32.0 [facility] Comment on above: Order Comment: 157 Performed By: #### M 100.2200, [id number] #### [facility] [address] [place], [address] Creatinine [Mass/Vol] 1.21 mg/dL High 0.70-1.20 [facility] Comment on above: Order Comment: 157 Performed By: #### M 100.2200, [id number] #### [facility] [address] [place], [address] GAP 11 Normal 5-15 [facility] Comment on above: Order Comment: 157 Performed By: #### M 100.2200, [id number] #### [facility] [address] [place], [address] GFR/1.73 sq M.predicted among non-blacks MDRD (S/P/Bld) [Vol rate/Area] 45 mL/min/{1.73_m2} Low >60 [facility] Comment on above: Order Comment: 157 Result Comment: mL/m in/1.73m2 CKD-EPI Creatinine Equation (2020) Performed By: #### M 100.2200, [id number] #### [facility] [address] [place], [address] Glucose [Mass/Vol] 126 mg/dL High 70-99 [facility] Comment on above: Order Comment: 157 Performed By: #### M 100.2200, [id number] #### [facility] [address] [place], [address] Potassium [Moles/Vol] 4.2 mmol/L Normal 3.3-5.1 [facility] Comment on above: Order Comment: 157 Performed By: #### M 100.2200, [id number] #### [facility] [address] [place], [address] Sodium [Moles/Vol] 139 mmol/L Normal 133-145 [facility] Comment on above: Order Comment: 157 Performed By: #### M 100.2200, [id number] #### [facility] [address] [place], [address] Urea nitrogen [Mass/Vol] 35 mg/dL High 4-19 [facility] Comment on above: Order Comment: 157 Performed By: #### M 100.2200, [id number] #### [facility] [address] [place], [address] Carbon dioxide, total [Moles /volume] in Central venous bloodOrdered By: Melissa Reed on 11-28-2024 CO2 [Moles/Vol] 29.5 mmol/L 21.0-32.0 [facility] Chloride assayOrdered By: Sd Reed on 11-28-2024 Chloride [Moles/Vol] 98 mmol/L 98-108 [facility] Glomerular filtration rate ( GFR) estimation/1.73 sq m using serum, plasma, or whole bOrdered By: Melissa Reed on 11-28-2024 GFR/1.73 sq M.predicted among non-blacks MDRD (S/P/Bld) [Vol rate/Area] 45 mL/min/{1.73_m2} Low >60 [facility] Comment on above: mL/min/1.73m2 CKD-EP I Creatinine Equation (2020) Magnesiumon 11-28-2024 Magnesium [Mass/Vol] 2.4 mg/dL High 1.5-2.2 [facility] Comment on above: Order Comment: 157 Performed By: #### M 100.2200, [id number] #### [facility] [place], [address] Magnesium measurement (mass/ volume)Ordered By: Melissa Reed on 11-28-2024 Magnesium (Unsp spec) [Mass/Vol] 2.4 mg/dL High 1.5-2.2 [facility] Potassium measurement (mass/ volume)Ordered By: Melissa Reed on 11-28-2024 Potassium (Unsp spec) [Mass/Vol] 4.2 mmol/L 3.3-5.1 [facility] Serum creatinine measurement (mass/volume)Ordered By: Melissa Reed on 11-28-2024 Creatinine [Mass/Vol] 1.21 mg/dL High 0.70-1.20 [facility] Serum glucose measurement (m ass/volume)Ordered By: Melissa Reed on 11-28-2024 Glucose [Mass/Vol] 126 mg/dL High 70-99 [facility] Serum or plasma calcium danae urement (mass/volume)Ordered By: Melissa Reed on 11-28-2024 Calcium [Mass/Vol] 9.5 mg/dL 7.6-11.0 [facility] Serum or plasma urea nitroge n measurement (mass/volume)Ordered By: Melissa Reed on 11-28-2024 Urea nitrogen [Mass/Vol] 35 mg/dL High 4-19 [facility] Sodium levelOrdered By: Rubin Reed on 11-28-2024 Sodium [Moles/Vol] 139 mmol/L 133-145 [facility] Anion gap in Serum or Plasma Ordered By: Melissa Reed on 11-14-2024 Anion gap [Moles/Vol] 9 mmol/L 5-15 [facility] BUN/creatinine ratioOrdered By: Melissa Reed on 11-14-2024 Urea nitrogen/Creatinine [Mass ratio] 21.3 mg/mg High 10- [facility] Basic Metabolic Profile (BMP )on 11-14-2024 BUN/CRE 21.3 RATIO High - [facility] Comment on above: Performed By: #### M 100.2200, [id number] #### [facility] [address] [place], [address] Calcium [Mass/Vol] 8.6 mg/dL Normal 7.6-11.0 [facility] Comment on above: Performed By: #### M 100.2200, [id number] #### [facility] [address] [place], [address] Chloride [Moles/Vol] 101 mmol/L Normal 98-108 [facility] Comment on above: Performed By: #### M 100.2200, [id number] #### [facility] [address] [place], [address] CO2 [Moles/Vol] 29.7 mmol/L Normal 21.0-32.0 [facility] Comment on above: Performed By: #### M 100.2200, [id number] #### [facility] [address] [place], [address] Creatinine [Mass/Vol] 1.04 mg/dL Normal 0.70-1.20 [facility] Comment on above: Performed By: #### M 100.2200, [id number] #### [facility] [address] [place], [address] GAP 9 Normal 5-15 [facility] Comment on above: Performed By: #### M 100.2200, [id number] #### [facility] [address] [place], [address] GFR/1.73 sq M.predicted among non-blacks MDRD (S/P/Bld) [Vol rate/Area] 54 mL/min/{1.73_m2} Low >60 [facility] Comment on above: Result Comment: mL/m in/1.73m2 CKD-EPI Creatinine Equation (2020) Performed By: #### M 100.2200, [id number] #### [facility] [address] [place], [address] Glucose [Mass/Vol] 179 mg/dL High 70-99 [facility] Comment on above: Performed By: #### M 100.2200, [id number] #### [facility] [address] [place], [address] Potassium [Moles/Vol] 4.1 mmol/L Normal 3.3-5.1 [facility] Comment on above: Performed By: #### M 100.2200, [id number] #### [facility] [address] [place], [address] Sodium [Moles/Vol] 140 mmol/L Normal 133-145 [facility] Comment on above: Performed By: #### M 100.2200, [id number] #### [facility] [address] [place], [address] Urea nitrogen [Mass/Vol] 22 mg/dL High 4-19 [facility] Comment on above: Performed By: #### M 100.2200, [id number] #### [facility] [address] [place], [address] Carbon dioxide, total [Moles /volume] in Central venous bloodOrdered By: Melissa Reed on 11-14-2024 CO2 [Moles/Vol] 29.7 mmol/L 21.0-32.0 [facility] Chloride assayOrdered By: Sd Reed on 11-14-2024 Chloride [Moles/Vol] 101 mmol/L 98-108 [facility] Glomerular filtration rate ( GFR) estimation/1.73 sq m using serum, plasma, or whole bOrdered By: Melissa Reed on 11-14-2024 GFR/1.73 sq M.predicted among non-blacks MDRD (S/P/Bld) [Vol rate/Area] 54 mL/min/{1.73_m2} Low >60 [facility] Comment on above: mL/min/1.73m2 CKD-EP I Creatinine Equation (2020) Magnesiumon 11-14-2024 Magnesium [Mass/Vol] 2.1 mg/dL Normal 1.5-2.2 [facility] Comment on above: Performed By: #### M [id number], [id number] #### [facility] [place], [address] Magnesium measurement (mass/ volume)Ordered By: Melissa Reed on 11-14-2024 Magnesium (Unsp spec) [Mass/Vol] 2.1 mg/dL 1.5-2.2 [facility] Potassium measurement (mass/ volume)Ordered By: Melissa Reed on 11-14-2024 Potassium (Unsp spec) [Mass/Vol] 4.1 mmol/L 3.3-5.1 [facility] Serum creatinine measurement (mass/volume)Ordered By: Melissa Reed on 11-14-2024 Creatinine [Mass/Vol] 1.04 mg/dL 0.70-1.20 [facility] Serum glucose measurement (m ass/volume)Ordered By: Melissa Reed on 11-14-2024 Glucose [Mass/Vol] 179 mg/dL High 70-99 [facility] Serum or plasma calcium danae urement (mass/volume)Ordered By: Melissa Reed on 11-14-2024 Calcium [Mass/Vol] 8.6 mg/dL 7.6-11.0 [facility] Serum or plasma urea nitroge n measurement (mass/volume)Ordered By: Melissa Reed on 11-14-2024 Urea nitrogen [Mass/Vol] 22 mg/dL High 4-19 [facility] Sodium levelOrdered By: Rubin Reed on 11-14-2024 Sodium [Moles/Vol] 140 mmol/L 133-145 [facility] Anion gap in Serum or Plasma Ordered By: Melissa Reed on 11-08-2024 Anion gap [Moles/Vol] 10 mmol/L 5-15 [facility] BUN/creatinine ratioOrdered By: Melissa Reed on 11-08-2024 Urea nitrogen/Creatinine [Mass ratio] 24.4 mg/mg High 10-20 [facility] Basic Metabolic Profile (BMP )on 11-08-2024 BUN/CRE 24.4 RATIO High 10-20 [facility] Comment on above: Order Comment: 157 Performed By: #### L [id number], [id number] #### [facility] [address] [place], [address] Calcium [Mass/Vol] 8.8 mg/dL Normal 7.6-11.0 [facility] Comment on above: Order Comment: 157 Performed By: #### L [id number], [id number] #### [facility] [address] [place], [address] Chloride [Moles/Vol] 101 mmol/L Normal 98-108 [facility] Comment on above: Order Comment: 157 Performed By: #### L [id number], [id number] #### [facility] [address] [place], [address] CO2 [Moles/Vol] 28.3 mmol/L Normal 21.0-32.0 [facility] Comment on above: Order Comment: 157 Performed By: #### L [id number], [id number] #### [facility] [address] [place], [address] Creatinine [Mass/Vol] 1.08 mg/dL Normal 0.70-1.20 [facility] Comment on above: Order Comment: 157 Performed By: #### L [id number], [id number] #### [facility] [address] [place], [address] GAP 10 Normal 5-15 [facility] Comment on above: Order Comment: 157 Performed By: #### L [id number], [id number] #### [facility] [address] [place], [address] GFR/1.73 sq M.predicted among non-blacks MDRD (S/P/Bld) [Vol rate/Area] 52 mL/min/{1.73_m2} Low >60 [facility] Comment on above: Order Comment: 157 Result Comment: mL/m in/1.73m2 CKD-EPI Creatinine Equation (2020) Performed By: #### L [id number], [id number] #### [facility] [address] [place], [address] Glucose [Mass/Vol] 104 mg/dL High 70-99 [facility] Comment on above: Order Comment: 157 Performed By: #### L [id number], [id number] #### [facility] [address] [place], [address] Potassium [Moles/Vol] 3.6 mmol/L Normal 3.3-5.1 [facility] Comment on above: Order Comment: 157 Performed By: #### L [id number], [id number] #### [facility] [address] [place], [address] Sodium [Moles/Vol] 138 mmol/L Normal 133-145 [facility] Comment on above: Order Comment: 157 Performed By: #### L [id number], [id number] #### [facility] [address] [place], [address] Urea nitrogen [Mass/Vol] 26 mg/dL High 4-19 [facility] Comment on above: Order Comment: 157 Performed By: #### L [id number], [id number] #### [facility] [address] [place], [address] Bilirubin directOrdered By: Melissa Reed on 11-08-2024 Bilirubin.direct [Mass/Vol] 0.22 mg/dL 0.00-0.30 [facility] Bilirubin, totalOrdered By: Melissa Reed on 11-08-2024 Bilirubin [Mass/Vol] 0.46 mg/dL 0.00-1.30 [facility] CBC-Complete Blood Cnt No Di ffon 11-08-2024 Erythrocyte distribution width (RBC) [Ratio] 12.8 % Normal 11.6-14.6 [facility] Comment on above: Order Comment: 157 Performed By: #### L [id number], [id number] #### [facility] [address] [place], [address] Hematocrit (Bld) [Volume fraction] 36.6 % Low 37-47 [facility] Comment on above: Order Comment: 157 Performed By: #### L [id number], [id number] #### [facility] [address] [place], [address] Hemoglobin (Bld) [Mass/Vol] 11.6 g/dL Low 12.0-15.0 [facility] Comment on above: Order Comment: 157 Performed By: #### L [id number], [id number] #### [facility] [address] [place], [address] MCH (RBC) [Entitic mass] 30.9 pg Normal 27.0-32.0 [facility] Comment on above: Order Comment: 157 Performed By: #### L [id number], [id number] #### [facility] [address] [place], [address] MCHC (RBC) [Mass/Vol] 31.7 g/dL Low 32-36 [facility] Comment on above: Order Comment: 157 Performed By: #### L [id number], [id number] #### [facility] [address] [place], [address] MCV (RBC) [Entitic vol] 97.6 fL Normal 81-99 [facility] Comment on above: Order Comment: 157 Performed By: #### L [id number], [id number] #### [facility] [address] [place], [address] Platelet mean volume (Bld) [Entitic vol] 10.2 fL Normal 6.2-12.0 [facility] Comment on above: Order Comment: 157 Performed By: #### L [id number], [id number] #### [facility] [address] [place], [address] Platelets (Bld) [#/Vol] 228 10*3/uL Normal 150-450 [facility] Comment on above: Order Comment: 157 Performed By: #### L [id number], [id number] #### [facility] [address] [place], [address] RBC (Bld) [#/Vol] 3.75 10*6/uL Low 4.2-5.4 [facility] Comment on above: Order Comment: 157 Performed By: #### L [id number], [id number] #### [facility] [address] [place], [address] RDW SD 46.0 fl High 35.1-43.9 [facility] Comment on above: Order Comment: 157 Performed By: #### L [id number], [id number] #### [facility] [address] [place], [address] WBC (Bld) [#/Vol] 8.4 10*3/uL Normal 4.4-11.0 [facility] Comment on above: Order Comment: 157 Performed By: #### L [id number], [id number] #### [facility] [address] [place], [address] Carbon dioxide, total [Moles /volume] in Central venous bloodOrdered By: Melissa Reed on 11-08-2024 CO2 [Moles/Vol] 28.3 mmol/L 21.0-32.0 [facility] Chloride assayOrdered By: Sd Reed on 11-08-2024 Chloride [Moles/Vol] 101 mmol/L 98-108 [facility] Erythrocyte distribution wid th ratioOrdered By: Melissa Reed on 11-08-2024 Erythrocyte distribution width (RBC) [Ratio] 12.8 % 11.6-14.6 [facility] Erythrocyte distribution wid th standard deviationOrdered By: Melissa Reed on 11-08-2024 Erythrocyte distribution width (RBC) [Ratio] 46.0 fl High 35.1-43.9 [facility] Glomerular filtration rate ( GFR) estimation/1.73 sq m using serum, plasma, or whole bOrdered By: Melissa Reed on 11-08-2024 GFR/1.73 sq M.predicted among non-blacks MDRD (S/P/Bld) [Vol rate/Area] 52 mL/min/{1.73_m2} Low >60 [facility] Comment on above: mL/min/1.73m2 CKD-EP I Creatinine Equation (2020) Hematocrit Auto (Bld) [Volum e fraction]Ordered By: Melissa Reed on 11-08-2024 Hematocrit (Bld) [Volume fraction] 36.6 % Low 37-47 [facility] Hemoglobin measurementOrdere d By: Melissa Reed on 11-08-2024 Hemoglobin (Bld) [Mass/Vol] 11.6 g/dL Low 12.0-15.0 [facility] - Chemistry and C hemistry - challengeOrdered By: Melissa Reed on 11-08-2024 AST [Catalytic activity/Vol] 81 U/L High <32 [facility] Liver Profileon 11-08-2024 Albumin [Mass/Vol] 3.3 g/dL Low 3.4-4.8 [facility] Comment on above: Order Comment: 157 Performed By: #### L [id number], [id number] #### [facility] [address] [place], [address] ALK PHOS 110 U/L High 35-104 [facility] Comment on above: Order Comment: 157 Performed By: #### L [id number], [id number] #### [facility] [address] [place], [address] ALT [Catalytic activity/Vol] 87 U/L High <=34 [facility] Comment on above: Order Comment: 157 Performed By: #### L [id number], [id number] #### [facility] [address] [place], [address] AST [Catalytic activity/Vol] 81 U/L High <=31 [facility] Comment on above: Order Comment: 157 Performed By: #### L [id number], [id number] #### [facility] [address] [place], [address] Bilirubin [Mass/Vol] 0.46 mg/dL Normal 0.00-1.30 [facility] Comment on above: Order Comment: 157 Performed By: #### L [id number], [id number] #### [facility] [address] [place], [address] Bilirubin.direct [Mass/Vol] 0.22 mg/dL Normal 0.00-0.30 [facility] Comment on above: Order Comment: 157 Performed By: #### L [id number], [id number] #### [facility] [address] [place], [address] Globulin (S) [Mass/Vol] 2.9 g/dL Normal 2.2-4.2 [facility] Comment on above: Order Comment: 157 Performed By: #### L [id number], [id number] #### [facility] [address] [place], [address] T PROT 6.3 g/dL Normal 5.9-8.4 [facility] Comment on above: Order Comment: 157 Performed By: #### L [id number], [id number] #### [facility] [address] [place], [address] MCV (mean corpuscular volume ) determinationOrdered By: Melissa Reed on 11-08-2024 MCV (RBC) [Entitic vol] 97.6 fL 81-99 [facility] Magnesiumon 11-08-2024 Magnesium [Mass/Vol] 1.8 mg/dL Normal 1.5-2.2 [facility] Comment on above: Order Comment: 157 Performed By: #### L [id number], [id number] #### [facility] [address] [place], [id number] Magnesium measurement (mass/ volume)Ordered By: Melissa Reed on 11-08-2024 Magnesium (Unsp spec) [Mass/Vol] 1.8 mg/dL 1.5-2.2 [facility] Mean corpuscular hemoglobin (MCH) determinationOrdered By: Melissa Reed on 11-08-2024 MCH (RBC) [Entitic mass] 30.9 pg 27.0-32.0 [facility] Mean corpuscular hemoglobin concentration (MCHC) determinationOrdered By: Melissa Reed on 11-08-2024 MCHC (RBC) [Mass/Vol] 31.7 g/dL Low 32-36 [facility] Mean platelet volume determi nationOrdered By: Melissa Reed on 11-08-2024 Platelet mean volume (Bld) [Entitic vol] 10.2 fL 6.2-12.0 [facility] Platelet countOrdered By: Sd Reed on 11-08-2024 Platelets (Bld) [#/Vol] 228 10*3/uL 150-450 [facility] Potassium measurement (mass/ volume)Ordered By: Melissa Reed on 11-08-2024 Potassium (Unsp spec) [Mass/Vol] 3.6 mmol/L 3.3-5.1 [facility] RBC Auto (Bld) [#/Vol]Ordere d By: Melissa Reed on 11-08-2024 RBC (Bld) [#/Vol] 3.75 10*6/uL Low 4.2-5.4 [facility] Serum creatinine measurement (mass/volume)Ordered By: Melissa Reed on 11-08-2024 Creatinine [Mass/Vol] 1.08 mg/dL 0.70-1.20 [facility] Serum globulin measurementOr dered By: Melissa Reed on 11-08-2024 Globulin (S) [Mass/Vol] 2.9 g/dL 2.2-4.2 [facility] Serum glucose measurement (m ass/volume)Ordered By: Melissa Reed on 11-08-2024 Glucose [Mass/Vol] 104 mg/dL High 70-99 [facility] Serum or plasma alanine bro otransferase (ALT) measurementOrdered By: Melissa Reed on 11-08-2024 ALT [Catalytic activity/Vol] 87 U/L High <35 [facility] Serum or plasma albumin danae urement (mass/volume)Ordered By: Melissa Reed on 11-08-2024 Albumin [Mass/Vol] 3.3 g/dL Low 3.4-4.8 [facility] Serum or plasma alkaline moustapha sphatase measurementOrdered By: Melissa Reed on 11-08-2024 ALP [Catalytic activity/Vol] 110 U/L High 35-104 [facility] Serum or plasma calcium danae urement (mass/volume)Ordered By: Melissa Reed on 11-08-2024 Calcium [Mass/Vol] 8.8 mg/dL 7.6-11.0 [facility] Serum or plasma urea nitroge n measurement (mass/volume)Ordered By: Melissa Reed on 11-08-2024 Urea nitrogen [Mass/Vol] 26 mg/dL High 4-19 [facility] Sodium levelOrdered By: Rubin Reed on 11-08-2024 Sodium [Moles/Vol] 138 mmol/L 133-145 [facility] Total proteinOrdered By: Lillian Reed on 11-08-2024 Protein [Mass/Vol] 6.3 g/dL 5.9-8.4 [facility] White blood cell (WBC) count Ordered By: Melissa Reed on 11-08-2024 WBC (Bld) [#/Vol] 8.4 10*3/uL 4.4-11.0 [facility] Anion gap in Serum or Plasma Ordered By: Melissa Reed on 10-17-2024 Anion gap [Moles/Vol] 9 mmol/L - [facility] BUN/creatinine ratioOrdered By: Melissa Reed on 10-17-2024 Urea nitrogen/Creatinine [Mass ratio] 28.5 mg/mg High - [facility] Basic Metabolic Profile (BMP )on 10-17-2024 BUN/CRE 28.5 RATIO High - [facility] Comment on above: Order Comment: 157 Performed By: #### M 100.2200, [id number] #### [facility] [address] [place], [address] Calcium [Mass/Vol] 8.7 mg/dL Normal 7.6-11.0 [facility] Comment on above: Order Comment: 157 Performed By: #### M 100.2200, [id number] #### [facility] [address] [place], [address] Chloride [Moles/Vol] 103 mmol/L Normal 98-108 [facility] Comment on above: Order Comment: 157 Performed By: #### M 100.2200, [id number] #### [facility] [address] [place], [address] CO2 [Moles/Vol] 28.9 mmol/L Normal 21.0-32.0 [facility] Comment on above: Order Comment: 157 Performed By: #### M 100.2200, [id number] #### [facility] [address] [place], [address] Creatinine [Mass/Vol] 1.04 mg/dL Normal 0.70-1.20 [facility] Comment on above: Order Comment: 157 Performed By: #### M 100.2200, [id number] #### [facility] [address] [place], [address] GAP 9 Normal -15 [facility] Comment on above: Order Comment: 157 Performed By: #### M 100.2200, [id number] #### [facility] [address] [place], [address] GFR/1.73 sq M.predicted among non-blacks MDRD (S/P/Bld) [Vol rate/Area] 54 mL/min/{1.73_m2} Low >60 [facility] Comment on above: Order Comment: 157 Result Comment: mL/m in/1.73m2 CKD-EPI Creatinine Equation (2020) Performed By: #### M 100.2200, [id number] #### [facility] [address] [place], [address] Glucose [Mass/Vol] 106 mg/dL High 70-99 [facility] Comment on above: Order Comment: 157 Performed By: #### M 100.2200, [id number] #### [facility] [address] [place], [address] Potassium [Moles/Vol] 3.8 mmol/L Normal 3.3-5.1 [facility] Comment on above: Order Comment: 157 Performed By: #### M 100.2200, [id number] #### [facility] [address] [place], [address] Sodium [Moles/Vol] 140 mmol/L Normal 133-145 [facility] Comment on above: Order Comment: 157 Performed By: #### M 100.2200, [id number] #### [facility] [address] [place], [address] Urea nitrogen [Mass/Vol] 30 mg/dL High 4-19 [facility] Comment on above: Order Comment: 157 Performed By: #### M 100.2200, [id number] #### [facility] [address] [place], [address] Carbon dioxide, total [Moles /volume] in Central venous bloodOrdered By: Melissa Reed on 10-17-2024 CO2 [Moles/Vol] 28.9 mmol/L 21.0-32.0 [facility] Chloride assayOrdered By: Sd Reed on 10-17-2024 Chloride [Moles/Vol] 103 mmol/L 98-108 [facility] Glomerular filtration rate ( GFR) estimation/1.73 sq m using serum, plasma, or whole bOrdered By: Melissa Reed on 10-17-2024 GFR/1.73 sq M.predicted among non-blacks MDRD (S/P/Bld) [Vol rate/Area] 54 mL/min/{1.73_m2} Low >60 [facility] Comment on above: mL/min/1.73m2 CKD-EP I Creatinine Equation (2020) Magnesiumon 10-17-2024 Magnesium [Mass/Vol] 2.3 mg/dL High 1.5-2.2 [facility] Comment on above: Order Comment: 157 Performed By: #### L 500.2500, L501.5200 #### [facility] [address] [place] [address]. [place], [address] Magnesium measurement (mass/ volume)Ordered By: Melissa Reed on 10-17-2024 Magnesium (Unsp spec) [Mass/Vol] 2.3 mg/dL High 1.5-2.2 [facility] Potassium measurement (mass/ volume)Ordered By: Melissa Reed on 10-17-2024 Potassium (Unsp spec) [Mass/Vol] 3.8 mmol/L 3.3-5.1 [facility] Serum creatinine measurement (mass/volume)Ordered By: Melissa Reed on 10-17-2024 Creatinine [Mass/Vol] 1.04 mg/dL 0.70-1.20 [facility] Serum glucose measurement (m ass/volume)Ordered By: Melissa Reed on 10-17-2024 Glucose [Mass/Vol] 106 mg/dL High 70-99 [facility] Serum or plasma calcium danae urement (mass/volume)Ordered By: Melissa Reed on 10-17-2024 Calcium [Mass/Vol] 8.7 mg/dL 7.6-11.0 [facility] Serum or plasma urea nitroge n measurement (mass/volume)Ordered By: Melissa Reed on 10-17-2024 Urea nitrogen [Mass/Vol] 30 mg/dL High 4-19 [facility] Sodium levelOrdered By: Rubin Reed on 10-17-2024 Sodium [Moles/Vol] 140 mmol/L 133-145 [facility] Anion gap in Serum or Plasma Ordered By: Melissa Reed on 10-03-2024 Anion gap [Moles/Vol] 10 mmol/L 5-15 [facility] BUN/creatinine ratioOrdered By: Melissa Reed on 10-03-2024 Urea nitrogen/Creatinine [Mass ratio] 24.4 mg/mg High 10-20 [facility] Basic Metabolic Profile (BMP )on 10-03-2024 BUN/CRE 24.4 RATIO High 10- [facility] Comment on above: Order Comment: 157 Performed By: #### L 500.2500, [id number] #### [facility] [address] [place], [address] Calcium [Mass/Vol] 8.7 mg/dL Normal 7.6-11.0 [facility] Comment on above: Order Comment: 157 Performed By: #### L 500.2500, [id number] #### [facility] [address] [place], [address] Chloride [Moles/Vol] 102 mmol/L Normal 98-108 [facility] Comment on above: Order Comment: 157 Performed By: #### L 500.2500, [id number] #### [facility] [address] [place], [address] CO2 [Moles/Vol] 27.9 mmol/L Normal 21.0-32.0 [facility] Comment on above: Order Comment: 157 Performed By: #### L 500.2500, [id number] #### [facility] [address] [place], [address] Creatinine [Mass/Vol] 1.08 mg/dL Normal 0.70-1.20 [facility] Comment on above: Order Comment: 157 Performed By: #### L 500.2500, [id number] #### [facility] [address] [place], [address] GAP 10 Normal 5-15 [facility] Comment on above: Order Comment: 157 Performed By: #### L 500.2500, [id number] #### [facility] [address] [place], [address] GFR/1.73 sq M.predicted among non-blacks MDRD (S/P/Bld) [Vol rate/Area] 52 mL/min/{1.73_m2} Low >60 [facility] Comment on above: Order Comment: 157 Result Comment: mL/m in/1.73m2 CKD-EPI Creatinine Equation (2020) Performed By: #### L 500.2500, [id number] #### [facility] [address] [place], [address] Glucose [Mass/Vol] 179 mg/dL High 70-99 [facility] Comment on above: Order Comment: 157 Performed By: #### L 500.2500, [id number] #### [facility] [address] [place], [address] Potassium [Moles/Vol] 3.8 mmol/L Normal 3.3-5.1 [facility] Comment on above: Order Comment: 157 Performed By: #### L 500.2500, [id number] #### [facility] [address] [place], [address] Sodium [Moles/Vol] 139 mmol/L Normal 133-145 [facility] Comment on above: Order Comment: 157 Performed By: #### L 500.2500, [id number] #### [facility] [address] [place], [address] Urea nitrogen [Mass/Vol] 26 mg/dL High 4-19 [facility] Comment on above: Order Comment: 157 Performed By: #### L 500.2500, [id number] #### [facility] [address] [place], [address] Carbon dioxide, total [Moles /volume] in Central venous bloodOrdered By: Melissa Reed on 10-03-2024 CO2 [Moles/Vol] 27.9 mmol/L 21.0-32.0 [facility] Chloride assayOrdered By: Sd Reed on 10-03-2024 Chloride [Moles/Vol] 102 mmol/L 98-108 [facility] GFR/1.73 sq M.predicted denise g non-blacks MDRD (S/P/Bld) [Vol rate/Area]Ordered By: Melissa Reed on 10-03-2024 Estimated GFR (MDRD) Non-Af Amer 52 Low >60 [facility] Comment on above: mL/min/1.73m2 CKD-EP I Creatinine Equation (2020) Glomerular filtration rate ( GFR) estimation/1.73 sq m using serum, plasma, or whole bOrdered By: Melissa Reed on 10-03-2024 GFR/1.73 sq M.predicted among non-blacks MDRD (S/P/Bld) [Vol rate/Area] 52 mL/min/{1.73_m2} Low >60 [facility] Comment on above: mL/min/1.73m2 CKD-EP I Creatinine Equation (2020) Hemoglobin A1con 10-03-2024 HbA1c (Bld) [Mass fraction] 5.9 % High <=5.6 [facility] Comment on above: Order Comment: 157 Result Comment: Norm al < 5.7 % Prediabetic 5.7 - 6.4 % Diabetic >or= 6.5 % Please note range changes. Performed By: #### L 500.2500, L501.5200 #### [facility] [address] [place], [place], [address] Hemoglobin A1c percentageOrd ered By: Melissa Reed on 10-03-2024 HbA1c (Bld) [Mass fraction] 5.9 % High <5.7 [facility] Comment on above: Normal < 5.7 % Predi abetic 5.7 - 6.4 % Diabetic >or= 6.5 % Please note range changes. Magnesiumon 10-03-2024 Magnesium [Mass/Vol] 2.2 mg/dL Normal 1.5-2.2 [facility] Comment on above: Order Comment: 157 Performed By: #### L 500.2500, [id number] #### [facility] [address] [place], [place], [id number] Magnesium (Unsp spec) [Mass/ Vol]Ordered By: Melissa Reed on 10-03-2024 Magnesium [Mass/Vol] 2.2 mg/dL 1.5-2.2 [facility] Magnesium measurement (mass/ volume)Ordered By: Melissa Reed on 10-03-2024 Magnesium (Unsp spec) [Mass/Vol] 2.2 mg/dL 1.5-2.2 [facility] Potassium (Unsp spec) [Mass/ Vol]Ordered By: Melissa Reed on 10-03-2024 Potassium [Moles/Vol] 3.8 mmol/L 3.3-5.1 [facility] Potassium measurement (mass/ volume)Ordered By: Melissa Reed on 10-03-2024 Potassium (Unsp spec) [Mass/Vol] 3.8 mmol/L 3.3-5.1 [facility] Serum creatinine measurement (mass/volume)Ordered By: Melissa Reed on 10-03-2024 Creatinine [Mass/Vol] 1.08 mg/dL 0.70-1.20 [facility] Serum glucose measurement (m ass/volume)Ordered By: Melissa Reed on 10-03-2024 Glucose [Mass/Vol] 179 mg/dL High 70-99 [facility] Serum or plasma calcium danae urement (mass/volume)Ordered By: Melissa Reed on 10-03-2024 Calcium [Mass/Vol] 8.7 mg/dL 7.6-11.0 [facility] Serum or plasma urea nitroge n measurement (mass/volume)Ordered By: Melissa Reed on 10-03-2024 Urea nitrogen [Mass/Vol] 26 mg/dL High 4-19 [facility] Sodium levelOrdered By: Rubin Reed on 10-03-2024 Sodium [Moles/Vol] 139 mmol/L 133-145 [facility] Urine Cultureon 09-26-2024 [facility] Results called on 09/26/24-1126 by MARYLOU to [facility] (RIZWAN) . Copy of report sent to [facility] [id number] 09/25/24 5616 ASNIRINEO. ESBL Escherichia coli [place] Count 25,000-50,000 MARKER ESBL producing OrganismA MARKER [...] S Normal [facility] Comment on above: Performed By: #### L 500.2500, L501.5200 #### [facility] [address] [facility] [place], [address] Bacteria LM.HPF (Urine sed) [#/Area]Ordered By: Melissa Reed on 09-23-2024 Urine Bacteria RARE /hpf None Seen [facility] Bilirubin Test strip Ql (U)O rdered By: Melissa Reed on 09-23-2024 Bilirubin Ql (U) Negative Negative [facility] Epithelial cells.squamous LM Ql (Urine sed)Ordered By: Melissa Reed on 09-23-2024 Epithelial cells.squamous LM.HPF (Urine sed) [#/Area] 0 /[HPF] 5-10 [facility] Glucose Ql (U)Ordered By: Sd Reed on 09-23-2024 Urine Glucose (UA) Normal mg/dl Normal [facility] Ketones Test strip Ql (U)Ord ered By: Melissa Reed on 09-23-2024 Ketones Ql (U) Negative Negative [facility] Microscopic analysis of urin e for red blood cells (RBC)Ordered By: Melissa Reed on 09-23-2024 Microscopic analysis of urine for red blood cells (RBC) 0 SEEN /hpf 0-5 [facility] Urine RBC 0 SEEN /hpf 0-5 [facility] Mucus LM Ql (Urine sed)Order ed By: Melissa Reed on 09-23-2024 Mucus Ql (Urine sed) 0 SEEN /hpf [facility] Nitrite Test strip Ql (U)Ord ered By: Melissa Reed on 09-23-2024 Nitrite Ql (U) Negative Negative [facility] Protein Test strip Ql (U)Ord ered By: Melissa Reed on 09-23-2024 Protein Ql (U) 30 mg/dl High Negative [facility] Squamous epithelial cells de tection in urine sediment by light microscopyOrdered By: Melissa Reed on 09-23-2024 Epithelial cells.squamous LM Ql (Urine sed) 0-5 SEEN /hpf 5-10 [facility] Urinalysis, Completeon 09-23 BACTERIA RARE Normal None Seen [facility] Comment on above: Order Comment: CLEAN CATCH Performed By: #### L 500.2500, [id number] #### [facility] [address] [place], [address] EPI,SQUAMOUS 0-5 SEEN Normal 5-10 [facility] Comment on above: Order Comment: CLEAN CATCH Performed By: #### L 500.2500, [id number] #### [facility] [address] [place], [address] WBC 50-100 SEEN Normal 0-5 [facility] Comment on above: Order Comment: CLEAN CATCH Performed By: #### L 500.2500, [id number] #### [facility] [address] [place], [address] Mucus Ql (Urine sed) 0 SEEN Normal [facility] Comment on above: Order Comment: CLEAN CATCH Performed By: #### L 500.2500, [id number] #### [facility] [address] [place], [address] RBC 0 SEEN Normal 0-5 [facility] Comment on above: Order Comment: CLEAN CATCH Performed By: #### L 500.2500, [id number] #### [facility] [address] [place], [address] Urine blood detectionOrdered By: Melissa Reed on 09-23-2024 Urine Occult Blood 25 /ul High Negative [facility] Urine clarityOrdered By: Lillian Reed on 09-23-2024 Clarity (U) Sl. Cloudy Clear [facility] Urine color determinationOrd ered By: Melissa Reed on 09-23-2024 Color (U) Yellow Yellow [facility] Urine cultureOrdered By: Lillian Reed on 09-23-2024 Bacteria identified Cx Nom (U) ESBL Escherichia coli Abnormal [facility] Urine glucose detectionOrder ed By: Melissa Reed on 09-23-2024 Glucose Ql (U) Normal mg/dl Normal [facility] Urine leukocyte esterase det ection by dipstickOrdered By: Melissa Reed on 09-23-2024 Leukocyte esterase Test strip Ql (U) 500 /ul High Negative [facility] Urine pHOrdered By: Melissa kerr on 09-23-2024 pH (U) 6.0 [pH] 5.0 - 8.0 [facility] Urine sediment bacteria coun t by microscopy (number/high power field)Ordered By: Melissa Reed on 09-23-2024 Bacteria LM.HPF (Urine sed) [#/Area] RARE /hpf None Seen [facility] Urine specific gravity measu rementOrdered By: Melissa Reed on 09-23-2024 Specific gravity (U) [Rel density] 1.015 1.002-1.030 [facility] Urine urobilinogen measureme ntOrdered By: Melissa Reed on 09-23-2024 Urobilinogen Ql (U) Normal mg/dl Normal [facility] Urobilinogen Ql (U)Ordered B y: Melissa Reed on 09-23-2024 Urine Urobilinogen Normal mg/dl Normal [facility] White blood cell countOrdere d By: Melissa Reed on 09-23-2024 Urine WBC 50-100 SEEN /hpf 0-5 [facility] White blood cell count 50-100 SEEN /hpf 0-5 [facility] Anion gap in Serum or Plasma Ordered By: Melissa Reed on 09-19-2024 Anion gap [Moles/Vol] 9 mmol/L 5-15 [facility] BUN/creatinine ratioOrdered By: Melissa Reed on 09-19-2024 Urea nitrogen/Creatinine [Mass ratio] 30.0 mg/mg High 10-20 [facility] Basic Metabolic Profile (BMP )on 09-19-2024 BUN/CRE 30.0 RATIO High 10-20 [facility] Comment on above: Order Comment: 157 Performed By: #### L 501.5200, L500.2500 #### [facility] [address] [place], [address] Calcium [Mass/Vol] 8.6 mg/dL Normal 7.6-11.0 [facility] Comment on above: Order Comment: 157 Performed By: #### L 501.5200, L500.2500 #### [facility] [address] [place], [address] Chloride [Moles/Vol] 103 mmol/L Normal 98-108 [facility] Comment on above: Order Comment: 157 Performed By: #### L 501.5200, L500.2500 #### [facility] [address] [place], [address] CO2 [Moles/Vol] 27.2 mmol/L Normal 21.0-32.0 [facility] Comment on above: Order Comment: 157 Performed By: #### L 501.5200, L500.2500 #### [facility] [address] [place], [address] Creatinine [Mass/Vol] 1.13 mg/dL Normal 0.70-1.20 [facility] Comment on above: Order Comment: 157 Performed By: #### L 501.5200, L500.2500 #### [facility] [address] [place], [address] GAP 9 Normal 5-15 [facility] Comment on above: Order Comment: 157 Performed By: #### L 501.5200, L500.2500 #### [facility] [address] [place], [address] GFR/1.73 sq M.predicted among non-blacks MDRD (S/P/Bld) [Vol rate/Area] 49 mL/min/{1.73_m2} Low >60 [facility] Comment on above: Order Comment: 157 Result Comment: mL/m in/1.73m2 CKD-EPI Creatinine Equation (2020) Performed By: #### L 501.5200, L500.2500 #### [facility] [address] [place], [address] Glucose [Mass/Vol] 165 mg/dL High 70-99 [facility] Comment on above: Order Comment: 157 Performed By: #### L 501.5200, L500.2500 #### [facility] [address] [place], [address] Potassium [Moles/Vol] 4.0 mmol/L Normal 3.3-5.1 [facility] Comment on above: Order Comment: 157 Performed By: #### L 501.5200, L500.2500 #### [facility] [address] [place], [address] Sodium [Moles/Vol] 140 mmol/L Normal 133-145 [facility] Comment on above: Order Comment: 157 Performed By: #### L 501.5200, L500.2500 #### [facility] [address] [place], [address] Urea nitrogen [Mass/Vol] 34 mg/dL High 4-19 [facility] Comment on above: Order Comment: 157 Performed By: #### L 501.5200, L500.2500 #### [facility] [address] [place], [address] Carbon dioxide, total [Moles /volume] in Central venous bloodOrdered By: Melissa Reed on 09-19-2024 CO2 [Moles/Vol] 27.2 mmol/L 21.0-32.0 [facility] Chloride assayOrdered By: Sd Reed on 09-19-2024 Chloride [Moles/Vol] 103 mmol/L 98-108 [facility] GFR/1.73 sq M.predicted denise g non-blacks MDRD (S/P/Bld) [Vol rate/Area]Ordered By: Melissa Reed on 09-19-2024 Estimated GFR (MDRD) Non-Af Amer 49 Low >60 [facility] Comment on above: mL/min/1.73m2 CKD-EP I Creatinine Equation (2020) Glomerular filtration rate ( GFR) estimation/1.73 sq m using serum, plasma, or whole bOrdered By: Melissa Reed on 09-19-2024 GFR/1.73 sq M.predicted among non-blacks MDRD (S/P/Bld) [Vol rate/Area] 49 mL/min/{1.73_m2} Low >60 [facility] Comment on above: mL/min/1.73m2 CKD-EP I Creatinine Equation (2020) Magnesiumon 09-19-2024 Magnesium [Mass/Vol] 2.2 mg/dL Normal 1.5-2.2 [facility] Comment on above: Order Comment: 157 Performed By: #### L 501.5200, L500.2500 #### [facility] [address] [place], [place], [id number] Magnesium (Unsp spec) [Mass/ Vol]Ordered By: Melissa Reed on 09-19-2024 Magnesium [Mass/Vol] 2.2 mg/dL 1.5-2.2 [facility] Magnesium measurement (mass/ volume)Ordered By: Melissa Reed on 09-19-2024 Magnesium (Unsp spec) [Mass/Vol] 2.2 mg/dL 1.5-2.2 [facility] Potassium (Unsp spec) [Mass/ Vol]Ordered By: Melissa Reed on 09-19-2024 Potassium [Moles/Vol] 4.0 mmol/L 3.3-5.1 [facility] Potassium measurement (mass/ volume)Ordered By: Melissa Reed on 09-19-2024 Potassium (Unsp spec) [Mass/Vol] 4.0 mmol/L 3.3-5.1 [facility] Serum creatinine measurement (mass/volume)Ordered By: Melissa Reed on 09-19-2024 Creatinine [Mass/Vol] 1.13 mg/dL 0.70-1.20 [facility] Serum glucose measurement (m ass/volume)Ordered By: Melissa Reed on 09-19-2024 Glucose [Mass/Vol] 165 mg/dL High 70-99 [facility] Serum or plasma calcium danae urement (mass/volume)Ordered By: Melissa Reed on 09-19-2024 Calcium [Mass/Vol] 8.6 mg/dL 7.6-11.0 [facility] Serum or plasma urea nitroge n measurement (mass/volume)Ordered By: Melissa Reed on 09-19-2024 Urea nitrogen [Mass/Vol] 34 mg/dL High 4-19 [facility] Sodium levelOrdered By: Rubin Reed on 09-19-2024 Sodium [Moles/Vol] 140 mmol/L 133-145 [facility] Urine Cultureon 09-19-2024 [facility] REPOR T ESCHERICHIA COLI mCIM NEGATIVE [...] [id number] 09/08/24 0701 MARYLOU. ESBL Escherichia coli [place] Count >100,000 MARKER Possible Carbapenemase producing EnterobacteriaceaeA [...] S Normal [facility] Comment on above: Performed By: #### M 100.2200, [id number] #### [facility] [address] [place], [place], [id number] Urinalysis, Completeon 09-06 EPI,TRANSITION 0-5 SEEN Normal 0-5 [facility] Comment on above: Order Comment: CLEAN CATCH Performed By: #### M 100.2200, [id number] #### [facility] [address] [place], [address] BACTERIA 3+ /hpf Normal None Seen [facility] Comment on above: Order Comment: CLEAN CATCH Performed By: #### M 100.2200, [id number] #### [facility] [address] [place], [address] EPI,SQUAMOUS 5-10 SEEN Normal 5-10 [facility] Comment on above: Order Comment: CLEAN CATCH Performed By: #### M 100.2200, [id number] #### [facility] [address] [place], [address] RBC 0-5 SEEN Normal 0-5 [facility] Comment on above: Order Comment: CLEAN CATCH Performed By: #### M 100.2200, [id number] #### [facility] [address] [place], [address] WBC 25-50 SEEN Normal 0-5 [facility] Comment on above: Order Comment: CLEAN CATCH Performed By: #### M 100.2200, L400.0001 #### [facility] [address] [place], [address] Mucus Ql (Urine sed) 0 SEEN Normal [facility] Comment on above: Order Comment: CLEAN CATCH Performed By: #### M 100.2200, L400.0001 #### [facility] [address] [place], [address] Bilirubin Test strip Ql (U)O rdered By: Melissa Reed on 09-05-2024 Bilirubin Ql (U) Negative Negative [facility] Epithelial cells.squamous LM Ql (Urine sed)Ordered By: Melissa Reed on 09-05-2024 Epithelial cells.squamous LM.HPF (Urine sed) [#/Area] 5 /[HPF] 5-10 [facility] Glucose Ql (U)Ordered By: Sd Reed on 09-05-2024 Urine Glucose (UA) Normal mg/dl Normal [facility] Ketones Test strip Ql (U)Ord ered By: Melissa Reed on 09-05-2024 Ketones Ql (U) Negative Negative [facility] Microscopic analysis of urin e for red blood cells (RBC)Ordered By: Melissa Reed on 09-05-2024 Microscopic analysis of urine for red blood cells (RBC) 0-5 SEEN /hpf 0-5 [facility] Urine RBC 0-5 SEEN /hpf 0-5 [facility] Mucus LM Ql (Urine sed)Order ed By: Melissa Reed on 09-05-2024 Mucus Ql (Urine sed) 0 SEEN /hpf [facility] Nitrite Test strip Ql (U)Ord ered By: Melissa Reed on 09-05-2024 Nitrite Ql (U) Positive High Negative [facility] Protein Test strip Ql (U)Ord ered By: Melissa Reed on 09-05-2024 Protein Ql (U) 30 mg/dl High Negative [facility] Squamous epithelial cells de tection in urine sediment by light microscopyOrdered By: Melissa Reed on 09-05-2024 Epithelial cells.squamous LM Ql (Urine sed) 5-10 SEEN /hpf 5-10 [facility] Transitional cells LM Ql (Ur ine sed)Ordered By: Melissa Reed on 09-05-2024 Urine Transitional Epithelial Cells 0-5 SEEN /hpf 0-5 [facility] Transitional cells detection in urine sediment by light microscopyOrdered By: Melissa Reed on 09-05-2024 Transitional cells LM Ql (Urine sed) 0-5 SEEN /hpf 0-5 [facility] Urine blood detectionOrdered By: Melissa Reed on 09-05-2024 Urine Occult Blood 10 /ul High Negative [facility] Urine clarityOrdered By: Lillian Reed on 09-05-2024 Clarity (U) Sl. Cloudy Clear [facility] Urine color determinationOrd ered By: Melissa Reed on 09-05-2024 Color (U) Yellow Yellow [facility] Urine cultureOrdered By: Lillian Reed on 09-05-2024 Bacteria identified Cx Nom (U) ESBL Escherichia coli Abnormal [facility] Urine glucose detectionOrder ed By: Melissa Reed on 09-05-2024 Glucose Ql (U) Normal mg/dl Normal [facility] Urine leukocyte esterase det ection by dipstickOrdered By: Melissa Reed on 09-05-2024 Leukocyte esterase Test strip Ql (U) 500 /ul High Negative [facility] Urine pHOrdered By: Melissa kerr on 09-05-2024 pH (U) 6.5 [pH] 5.0 - 8.0 [facility] Urine sediment bacteria coun t by microscopy (number/high power field)Ordered By: Melissa Reed on 09-05-2024 Bacteria LM.HPF (Urine sed) [#/Area] 3 /[HPF] None Seen [facility] Urine specific gravity measu rementOrdered By: Melissa Reed on 09-05-2024 Specific gravity (U) [Rel density] 1.015 1.002-1.030 [facility] Urine urobilinogen measureme ntOrdered By: Melissa Reed on 09-05-2024 Urobilinogen Ql (U) Normal mg/dl Normal [facility] Urobilinogen Ql (U)Ordered B y: Melissa Reed on 09-05-2024 Urine Urobilinogen Normal mg/dl Normal [facility] White blood cell countOrdere d By: Melissa Reed on 09-05-2024 Urine WBC 25-50 SEEN /hpf 0-5 [facility] White blood cell count 25-50 SEEN /hpf 0-5 [facility] Anion gap in Serum or Plasma Ordered By: Melissa Reed on 08-22-2024 Anion gap [Moles/Vol] 11 mmol/L 5-15 [facility] BUN/creatinine ratioOrdered By: Melissa Reed on 08-22-2024 Urea nitrogen/Creatinine [Mass ratio] 21.6 mg/mg High 04-07 [facility] Basic Metabolic Profile (BMP )on 08-22-2024 BUN/CRE 21.6 RATIO High 04-07 [facility] Comment on above: Performed By: #### M 100.2200, L400.0001 #### [facility] [address] [place], [address] Calcium [Mass/Vol] 8.8 mg/dL Normal 7.6-11.0 [facility] Comment on above: Performed By: #### M 100.2200, L400.0001 #### [facility] [address] [place], [address] Chloride [Moles/Vol] 103 mmol/L Normal 98-108 [facility] Comment on above: Performed By: #### M 100.2200, L400.0001 #### [facility] [address] [place], [address] CO2 [Moles/Vol] 24.4 mmol/L Normal 21.0-32.0 [facility] Comment on above: Performed By: #### M 100.2200, L400.0001 #### [facility] [address] [place], [address] Creatinine [Mass/Vol] 1.14 mg/dL Normal 0.70-1.20 [facility] Comment on above: Performed By: #### M 100.2200, [id number] #### [facility] [address] [place], [address] GAP 11 Normal 5-15 [facility] Comment on above: Performed By: #### M 100.2200, L400.0001 #### [facility] [address] [place], [address] GFR/1.73 sq M.predicted among non-blacks MDRD (S/P/Bld) [Vol rate/Area] 49 mL/min/{1.73_m2} Low >60 [facility] Comment on above: Result Comment: mL/m in/1.73m2 CKD-EPI Creatinine Equation (2020) Performed By: #### M 100.2200, L400.0001 #### [facility] [address] [place], [address] Glucose [Mass/Vol] 104 mg/dL High 70-99 [facility] Comment on above: Performed By: #### M 100.2200, L400.0001 #### [facility] [address] [place], [address] Potassium [Moles/Vol] 4.1 mmol/L Normal 3.3-5.1 [facility] Comment on above: Result Comment: Hemo lysis present, Results??could be affected. ?? Performed By: #### M 100.2200, L400.0001 #### [facility] [address] [place], [address] Sodium [Moles/Vol] 138 mmol/L Normal 133-145 [facility] Comment on above: Performed By: #### M 100.2200, L400.0001 #### [facility] [address] [place], [address] Urea nitrogen [Mass/Vol] 25 mg/dL High 4-19 [facility] Comment on above: Performed By: #### M 100.2200, L400.0001 #### [facility] [address] [place], [address] Carbon dioxide, total [Moles /volume] in Central venous bloodOrdered By: Melissa Reed on 08-22-2024 CO2 [Moles/Vol] 24.4 mmol/L 21.0-32.0 [facility] Chloride assayOrdered By: Sd Reed on 08-22-2024 Chloride [Moles/Vol] 103 mmol/L 98-108 [facility] GFR/1.73 sq M.predicted denise g non-blacks MDRD (S/P/Bld) [Vol rate/Area]Ordered By: Melissa Reed on 08-22-2024 Estimated GFR (MDRD) Non-Af Amer 49 Low >60 [facility] Comment on above: mL/min/1.73m2 CKD-EP I Creatinine Equation (2020) Glomerular filtration rate ( GFR) estimation/1.73 sq m using serum, plasma, or whole bOrdered By: Melissa Reed on 08-22-2024 GFR/1.73 sq M.predicted among non-blacks MDRD (S/P/Bld) [Vol rate/Area] 49 mL/min/{1.73_m2} Low >60 [facility] Comment on above: mL/min/1.73m2 CKD-EP I Creatinine Equation (2020) Magnesiumon 08-22-2024 Magnesium [Mass/Vol] 2.3 mg/dL High 1.5-2.2 [facility] Comment on above: Performed By: #### M 100.2200, L400.0001 #### [facility] [address] [place], [address] Magnesium (Unsp spec) [Mass/ Vol]Ordered By: Melissa Reed on 08-22-2024 Magnesium [Mass/Vol] 2.3 mg/dL High 1.5-2.2 [facility] Magnesium measurement (mass/ volume)Ordered By: Melissa Reed on 08-22-2024 Magnesium (Unsp spec) [Mass/Vol] 2.3 mg/dL High 1.5-2.2 [facility] Potassium (Unsp spec) [Mass/ Vol]Ordered By: Melissa Reed on 08-22-2024 Potassium [Moles/Vol] 4.1 mmol/L 3.3-5.1 [facility] Comment on above: Hemolysis present, R esults could be affected. Potassium measurement (mass/ volume)Ordered By: Melissa Reed on 08-22-2024 Potassium (Unsp spec) [Mass/Vol] 4.1 mmol/L 3.3-5.1 [facility] Comment on above: Hemolysis present, R esults could be affected. Serum creatinine measurement (mass/volume)Ordered By: Melissa Reed on 08-22-2024 Creatinine [Mass/Vol] 1.14 mg/dL 0.70-1.20 [facility] Serum glucose measurement (m ass/volume)Ordered By: Melissa Reed on 08-22-2024 Glucose [Mass/Vol] 104 mg/dL High 70-99 [facility] Serum or plasma calcium danae urement (mass/volume)Ordered By: Melissa Reed on 08-22-2024 Calcium [Mass/Vol] 8.8 mg/dL 7.6-11.0 [facility] Serum or plasma urea nitroge n measurement (mass/volume)Ordered By: Melissa Reed on 08-22-2024 Urea nitrogen [Mass/Vol] 25 mg/dL High - [facility] Sodium levelOrdered By: Rubin Reed on 08-22-2024 Sodium [Moles/Vol] 138 mmol/L 133-145 [facility] Urine Cultureon 08-10-2024 URC Copy of report sent to Infection Control [facility]inter [id number] 08/10/24 0702 BLUCAS. ESBL Escherichia coli [place] Count 80,000-100,000 ESBL Escherichia coli: REACTION Ampicillin [...] S Normal [facility] Comment on above: Performed By: #### L 501.5200, L500.2500 #### [facility] [address], [id number] Basic Metabolic Profile (BMP )on 08-08-2024 BUN/CRE 27.6 RATIO High - [facility] Comment on above: Performed By: #### L 500.2500, L501.5200 #### [facility] [address] [facility] [place], [place], [id number] CA,Total 8.6 mg/dL Normal 8.5-10.1 [facility] Comment on above: Performed By: #### L 500.2500, L501.5200 #### [facility] [address] [place], [address] Chloride [Moles/Vol] 103 mmol/L Normal 98-107 [facility] Comment on above: Performed By: #### L 500.2500, [id number] #### [facility] [address] [place], [address] CO2 [Moles/Vol] 31.0 mmol/L Normal 21.0-32.0 [facility] Comment on above: Performed By: #### L 500.2500, [id number] #### [facility] [address] [place], [address] Creatinine [Mass/Vol] 1.23 mg/dL High 0.55-1.02 [facility] Comment on above: Result Comment: The validity of the calculated GFR GFRAA in patients over 70 years has not been determined. Clinical correlation is essential. Performed By: #### L 500.2500, L501.5200 #### [facility] [address] [place], [address] EST GFR - AA 54 mL/min Low >60 [facility] Comment on above: Result Comment: Afri can [place]ian GFR Calc Performed By: #### L 500.2500, L501.5200 #### [facility] [address] [place], [address] GAP 4 Low 5-15 [facility] Comment on above: Performed By: #### L 500.2500, L501.5200 #### [facility] [address] [place], [address] GFR/1.73 sq M.predicted among non-blacks MDRD (S/P/Bld) [Vol rate/Area] 45 mL/min/{1.73_m2} Low >60 [facility] Comment on above: Result Comment: Non- GFR Calc Performed By: #### L 500.2500, L501.5200 #### [facility] [address] [place], [address] Glucose [Mass/Vol] 192 mg/dL High 74-106 [facility] Comment on above: Result Comment: Fast ing Glucose result greater than or equal to 126 mg/dL suggests DIABETES MELLITUS per A.D.A. criteria. Performed By: #### L 500.2500, L501.5200 #### [facility] [address] [place], [address] Potassium [Moles/Vol] 4.1 mmol/L Normal 3.5-5.1 [facility] Comment on above: Performed By: #### L 500.2500, L501.5200 #### [facility] [address] [place], [address] Sodium [Moles/Vol] 138 mmol/L Normal 136-145 [facility] Comment on above: Performed By: #### L 500.2500, [id number] #### [facility] [address] [place], [address] Urea nitrogen [Mass/Vol] 34 mg/dL High 7-18 [facility] Comment on above: Performed By: #### L 500.2500, L501.5200 #### [facility] [address] [place], [address] Blood urea nitrogen (BUN)/cr eatinine ratioOrdered By: Melissa Reed on 08-08-2024 Urea nitrogen/Creatinine [Mass ratio] 27.6 mg/mg High 10-20 [facility] Carbon dioxide measurementOr dered By: Melissa Reed on 08-08-2024 CO2 [Moles/Vol] 31.0 mmol/L 21.0-32.0 [facility] Chloride measurementOrdered By: Melissa Reed on 08-08-2024 Chloride [Moles/Vol] 103 mmol/L 98-107 [facility] Estimated glomerular filtrat ion rate (GFR) AmericanOrdered By: Melissa Reed on 08-08-2024 Estimated GFR (MDRD) Amer 54 mL/min Low >60 [facility] Comment on above: GFR Calc Glomerular filtration rate ( GFR) estimationOrdered By: Melissa Reed on 08-08-2024 Estimated GFR (MDRD) Non-Af Amer 45 mL/min Low >60 [facility] Comment on above: Non- GFR Calc GFR/1.73 sq M.predicted among non-blacks MDRD (S/P/Bld) [Vol rate/Area] 45 mL/min/{1.73_m2} Low >60 [facility] Comment on above: Non- GFR Calc Glucose measurementOrdered B y: Melissa Reed on 08-08-2024 Glucose [Mass/Vol] 192 mg/dL High 74-106 [facility] Comment on above: Fasting Glucose resu lt greater than or equal to 126 mg/dL suggests DIABETES MELLITUS per A.D.A. criteria. Magnesiumon 08-08-2024 Magnesium [Mass/Vol] 2.2 mg/dL Normal 1.6-2.6 [facility] Comment on above: Performed By: #### L 500.2500, L501.5200 #### [facility] [address] [place] [address], [id number] Magnesium measurementOrdered By: Melissa Reed on 08-08-2024 Magnesium [Mass/Vol] 2.2 mg/dL 1.6-2.6 [facility] Potassium measurementOrdered By: Melissa Reed on 08-08-2024 Potassium [Moles/Vol] 4.1 mmol/L 3.5-5.1 [facility] Serum anion gap measurementO rdered By: Melissa Reed on 08-08-2024 Anion gap [Moles/Vol] 4 mmol/L Low 5-15 [facility] Serum or plasma calcium danae urement (mass/volume)Ordered By: Melissa Reed on 08-08-2024 Calcium [Mass/Vol] 8.6 mg/dL 8.5-10.1 [facility] Serum or plasma creatinine m easurement (mass/volume)Ordered By: Melissa Reed on 08-08-2024 Creatinine [Mass/Vol] 1.23 mg/dL High 0.55-1.02 [facility] Comment on above: The validity of the calculated GFR & GFRAA in patients over 70 years has not been determined. Clinical correlation is essential. Serum or plasma urea nitroge n measurement (mass/volume)Ordered By: Melissa Reed on 08-08-2024 Urea nitrogen [Mass/Vol] 34 mg/dL High 7-18 [facility] Sodium levelOrdered By: Rubin Reed on 08-08-2024 Sodium [Moles/Vol] 138 mmol/L 136-145 [facility] Urinalysis, Completeon 08-07 BACTERIA 4+ /hpf Normal None Seen [facility] Comment on above: Order Comment: 157 Performed By: #### L 501.5200, L500.2500 #### [facility] [address] [place], [address] EPI,SQUAMOUS 0-5 SEEN Normal 5-10 [facility] Comment on above: Order Comment: 157 Performed By: #### L 501.5200, L500.2500 #### [facility] [address] [place], [address] RBC 0-5 SEEN Normal 0-5 [facility] Comment on above: Order Comment: 157 Performed By: #### L 501.5200, L500.2500 #### [facility] [address] [place], [address] WBC 10-25 SEEN Normal 0-5 [facility] Comment on above: Order Comment: 157 Performed By: #### L 501.5200, L500.2500 #### [facility] [address] [place], [address] Mucus Ql (Urine sed) 0 SEEN Normal [facility] Comment on above: Order Comment: 157 Performed By: #### L 501.5200, L500.2500 #### [facility] [address] [place], [address] Bilirubin Test strip Ql (U)O rdered By: Melissa Reed on 08-06-2024 Bilirubin Ql (U) Negative Negative [facility] Epithelial cells.squamous LM Ql (Urine sed)Ordered By: Melissa Reed on 08-06-2024 Epithelial cells.squamous LM.HPF (Urine sed) [#/Area] 0 /[HPF] 5-10 [facility] Glucose Ql (U)Ordered By: Sd Reed on 08-06-2024 Urine Glucose (UA) Normal mg/dl Normal [facility] Ketones Test strip Ql (U)Ord ered By: Melissa Reed on 08-06-2024 Ketones Ql (U) Negative Negative [facility] Microscopic analysis of urin e for red blood cells (RBC)Ordered By: Melissa Reed on 08-06-2024 Microscopic analysis of urine for red blood cells (RBC) 0-5 SEEN /hpf 0-5 [facility] Urine RBC 0-5 SEEN /hpf 0-5 [facility] Mucus LM Ql (Urine sed)Order ed By: Melissa Reed on 08-06-2024 Mucus Ql (Urine sed) 0 SEEN /hpf [facility] Nitrite Test strip Ql (U)Ord ered By: Melissa Reed on 08-06-2024 Nitrite Ql (U) Positive High Negative [facility] Protein Test strip Ql (U)Ord ered By: Melissa Reed on 08-06-2024 Protein Ql (U) Negative Negative [facility] Squamous epithelial cells de tection in urine sediment by light microscopyOrdered By: Melissa Reed on 08-06-2024 Epithelial cells.squamous LM Ql (Urine sed) 0-5 SEEN /hpf 5-10 [facility] Urine blood detectionOrdered By: Melissa Reed on 08-06-2024 Urine Occult Blood Negative Negative [facility] Urine clarityOrdered By: Lillian Reed on 08-06-2024 Clarity (U) Cloudy Clear [facility] Urine color determinationOrd ered By: Melissa Reed on 08-06-2024 Color (U) Yellow Yellow [facility] Urine cultureOrdered By: Lillian Reed on 08-06-2024 Bacteria identified Cx Nom (U) ESBL Escherichia coli Abnormal [facility] Urine glucose detectionOrder ed By: Melissa Reed on 08-06-2024 Glucose Ql (U) Normal mg/dl Normal [facility] Urine leukocyte esterase det ection by dipstickOrdered By: Melissa Reed on 08-06-2024 Leukocyte esterase Test strip Ql (U) 500 /ul High Negative [facility] Urine pHOrdered By: Melissa Heaton udla on 08-06-2024 pH (U) 7.0 [pH] 5.0 - 8.0 [facility] Urine sediment bacteria coun t by microscopy (number/high power field)Ordered By: Melissa Reed on 08-06-2024 Bacteria LM.HPF (Urine sed) [#/Area] 4 /[HPF] None Seen [facility] Urine specific gravity measu rementOrdered By: Melissa Reed on 08-06-2024 Specific gravity (U) [Rel density] 1.010 1.002-1.030 [facility] Urine urobilinogen measureme ntOrdered By: Melissa Reed on 08-06-2024 Urobilinogen Ql (U) Normal mg/dl Normal [facility] Urobilinogen Ql (U)Ordered B y: Melissa Reed on 08-06-2024 Urine Urobilinogen Normal mg/dl Normal [facility] White blood cell countOrdere d By: Melissa Reed on 08-06-2024 Urine WBC 10-25 SEEN /hpf 0-5 [facility] White blood cell count 10-25 SEEN /hpf 0-5 [facility] Cerv Spine 2 or 3 Viewson Cerv Spine 2 or 3 Views [facility] Imaging Services [address] [place] [address] Cerv Spine 2 or 3 Views MR#: [id number] Acct: [id number] Name: RADHA SANDOVAL Rep #: [id number] : 1945 F 78 From: Abner Castrokenneth TENA PCP: Melissa Reed MD Status: REG CLI Study: Cerv Spine 2 or 3 Views Date of Exam: 07/31/24 Exam# [id number] Ordering Dr: Gypsy Argueta MD PROCEDURE: CERVICAL [...] Reversal of the cervical lordosis. Reading Location: [facility] CC: Dr. Gypsy Argueta MD; Melissa Reed MD Practice Managers: Signed Normal [facility] Shoulder min 2 Viewson 07-31 Shoulder min 2 Views [facility] Imaging Services [address] [place] [id number] Shoulder min 2 Views MR#: [id number] Acct: [id number] Name: RADHA SANDOVAL Rep #: [id number] : 1945 F 78 From: Devendra Magallon PCP: Melissa Reed MD Status: REG CLI Study: Shoulder min 2 Views Date of Exam: 07/31/24 Exam# [id number] Ordering Dr: Gypsy Argueta MD PROCEDURE: Left shoulder radiographs REASON FOR EXAM: Pain TECHNIQUE: Four views of the left shoulder COMPARISON: None FINDINGS: See impression RAD/Shoulder min 2 Views IMPRESSION: Chronic fracture of the humeral neck with lateral plate/screw fixation hardware in place. Severe glenohumeral joint osteoarthritis. Negative for acute displaced fracture or dislocation. Acromioclavicular joint is intact. [facility] CC: Dr. Gypsy Argueta MD; Melissa Reed MD Practice Managers: Signed Normal [facility] Shoulder min 2 Views [facility] Imaging Services [address] [place] [address] Shoulder min 2 Views MR#: [id number] Acct: [id number] Name: RADHA SANDOVAL Rep #: [id number] : 1945 F 78 From: Devendra Magallon PCP: Melissa Reed MD Status: REG CLI Study: Shoulder min 2 Views Date of Exam: 07/31/24 Exam# [id number] Ordering Dr: Gypsy Argueta MD PROCEDURE: Right [...] Dr. Gypsy Argueta MD; Melissa Reed MD Practice Managers: Signed Normal [facility] Basic Metabolic Profile (BMP )on 07-25-2024 BUN/CRE 26.7 RATIO High 10-20 [facility] Comment on above: Order Comment: 157 Performed By: #### L 500.2500, L501.5200 #### [facility] [address] [facility] [place], [address] CA,Total 9.1 mg/dL Normal 8.5-10.1 [facility] Comment on above: Order Comment: 157 Performed By: #### L 500.2500, L501.5200 #### [facility] [address] [place], [address] Chloride [Moles/Vol] 103 mmol/L Normal 98-107 [facility] Comment on above: Order Comment: 157 Performed By: #### L 500.2500, L501.5200 #### [facility] [address] [place], [address] CO2 [Moles/Vol] 31.0 mmol/L Normal 21.0-32.0 [facility] Comment on above: Order Comment: 157 Performed By: #### L 500.2500, L501.5200 #### [facility] [facility] [address] [place], [address] Creatinine [Mass/Vol] 0.97 mg/dL Normal 0.55-1.02 [facility] Comment on above: Order Comment: 157 Result Comment: The validity of the calculated GFR GFRAA in patients over 70 years has not been determined. Clinical correlation is essential. Performed By: #### L 500.2500, L501.5200 #### [facility] [address] [place], [address] EST GFR - AA 71 mL/min Normal >60 [facility] Comment on above: Order Comment: 157 Result Comment: Afri can Algerian GFR Calc Performed By: #### L 500.2500, L501.5200 #### [facility] [address] [place], [address] GAP 4 Low 5-15 [facility] Comment on above: Order Comment: 157 Performed By: #### L 500.2500, L501.5200 #### [facility] [address] [place], [address] GFR/1.73 sq M.predicted among non-blacks MDRD (S/P/Bld) [Vol rate/Area] 58 mL/min/{1.73_m2} Low >60 [facility] Comment on above: Order Comment: 157 Result Comment: Non- GFR Calc Performed By: #### L 500.2500, L501.5200 #### [facility] [address] [place], [address] Glucose [Mass/Vol] 120 mg/dL High 74-106 [facility] Comment on above: Order Comment: 157 Result Comment: Fast ing Glucose result from 100 to 125 mg/dL suggests IMPAIRED HOMEOSTASIS per A.D.A. criteria. Performed By: #### L 500.2500, L501.5200 #### [facility] [address] [place], [address] Potassium [Moles/Vol] 3.9 mmol/L Normal 3.5-5.1 [facility] Comment on above: Order Comment: 157 Performed By: #### L 500.2500, L501.5200 #### [facility] [address] [place], [address] Sodium [Moles/Vol] 138 mmol/L Normal 136-145 [facility] Comment on above: Order Comment: 157 Performed By: #### L 500.2500, L501.5200 #### [facility] [address] [place], [address] Urea nitrogen [Mass/Vol] 26 mg/dL High 7-18 [facility] Comment on above: Order Comment: 157 Performed By: #### L 500.2500, L501.5200 #### [facility] [address] [place], [address] Blood urea nitrogen (BUN)/cr eatinine ratioOrdered By: Melissa Reed on 07-25-2024 Urea nitrogen/Creatinine [Mass ratio] 26.7 mg/mg High 10-20 [facility] Carbon dioxide measurementOr dered By: Melissa Reed on 07-25-2024 CO2 [Moles/Vol] 31.0 mmol/L 21.0-32.0 [facility] Chloride measurementOrdered By: Melissa Reed on 07-25-2024 Chloride [Moles/Vol] 103 mmol/L 98-107 [facility] Estimated glomerular filtrat ion rate (GFR) AmericanOrdered By: Melissa Reed on 07-25-2024 Estimated GFR (MDRD) Amer 71 mL/min >60 [facility] Comment on above: GFR Calc Glomerular filtration rate ( GFR) estimationOrdered By: Melissa Reed on 07-25-2024 Estimated GFR (MDRD) Non-Af Amer 58 mL/min Low >60 [facility] Comment on above: Non- GFR Calc Glucose measurementOrdered B y: Melissa Reed on 07-25-2024 Glucose [Mass/Vol] 120 mg/dL High 74-106 [facility] Comment on above: Fasting Glucose resu lt from 100 to 125 mg/dL suggests IMPAIRED HOMEOSTASIS per A.D.A. criteria. Magnesiumon 07-25-2024 Magnesium [Mass/Vol] 2.2 mg/dL Normal 1.6-2.6 [facility] Comment on above: Order Comment: 157 Performed By: #### L 500.2500, L501.5200 #### [facility] [facility] [place], [address] Magnesium measurementOrdered By: Melissa Reed on 07-25-2024 Magnesium [Mass/Vol] 2.2 mg/dL 1.6-2.6 [facility] Potassium measurementOrdered By: Melissa Reed on 07-25-2024 Potassium [Moles/Vol] 3.9 mmol/L 3.5-5.1 [facility] Serum anion gap measurementO rdered By: Melissa Reed on 07-25-2024 Anion gap [Moles/Vol] 4 mmol/L Low 5-15 [facility] Serum or plasma calcium danae urement (mass/volume)Ordered By: Melissa Reed on 07-25-2024 Calcium [Mass/Vol] 9.1 mg/dL 8.5-10.1 [facility] Serum or plasma creatinine m easurement (mass/volume)Ordered By: Melissa Reed on 07-25-2024 Creatinine [Mass/Vol] 0.97 mg/dL 0.55-1.02 [facility] Comment on above: The validity of the calculated GFR & GFRAA in patients over 70 years has not been determined. Clinical correlation is essential. Serum or plasma urea nitroge n measurement (mass/volume)Ordered By: Melissa Reed on 07-25-2024 Urea nitrogen [Mass/Vol] 26 mg/dL High 7-18 [facility] Sodium levelOrdered By: Rubin Reed on 07-25-2024 Sodium [Moles/Vol] 138 mmol/L 136-145 [facility] Basic Metabolic Profile (BMP )on 07-11-2024 BUN/CRE 30.4 RATIO High 10-20 [facility] Comment on above: Order Comment: 157 Performed By: #### L 500.2500, L501.5200 #### [facility] [address] [place], [address] CA,Total 9.0 mg/dL Normal 8.5-10.1 [facility] Comment on above: Order Comment: 157 Performed By: #### L 500.2500, L501.5200 #### [facility] [address] [place], [address] Chloride [Moles/Vol] 103 mmol/L Normal 98-107 [facility] Comment on above: Order Comment: 157 Performed By: #### L 500.2500, L501.5200 #### [facility] [address] [place], [address] CO2 [Moles/Vol] 32.0 mmol/L Normal 21.0-32.0 [facility] Comment on above: Order Comment: 157 Performed By: #### L 500.2500, L501.5200 #### [facility] [address] [place], [address] Creatinine [Mass/Vol] 0.86 mg/dL Normal 0.55-1.02 [facility] Comment on above: Order Comment: 157 Result Comment: The validity of the calculated GFR GFRAA in patients over 70 years has not been determined. Clinical correlation is essential. Performed By: #### L 500.2500, L501.5200 #### [facility] [address] [place], [address] EST GFR - AA 82 mL/min Normal >60 [facility] Comment on above: Order Comment: 157 Result Comment: Afri can Algerian GFR Calc Performed By: #### L 500.2500, L501.5200 #### [facility] [address] [place], [address] GAP 5 Normal 5-15 [facility] Comment on above: Order Comment: 157 Performed By: #### L 500.2500, L501.5200 #### [facility] [address] [place], [address] GFR/1.73 sq M.predicted among non-blacks MDRD (S/P/Bld) [Vol rate/Area] 68 mL/min/{1.73_m2} Normal >60 [facility] Comment on above: Order Comment: 157 Result Comment: Non- GFR Calc Performed By: #### L 500.2500, L501.5200 #### [facility] [address] [place], [address] Glucose [Mass/Vol] 109 mg/dL High 74-106 [facility] Comment on above: Order Comment: 157 Result Comment: Fast ing Glucose result from 100 to 125 mg/dL suggests IMPAIRED HOMEOSTASIS per A.D.A. criteria. Performed By: #### L 500.2500, L501.5200 #### [facility] [address] [place], [address] Potassium [Moles/Vol] 4.1 mmol/L Normal 3.5-5.1 [facility] Comment on above: Order Comment: 157 Performed By: #### L 500.2500, L501.5200 #### [facility] [address] [place], [address] Sodium [Moles/Vol] 140 mmol/L Normal 136-145 [facility] Comment on above: Order Comment: 157 Performed By: #### L 500.2500, [id number] #### [facility] [address] [place], [address] Urea nitrogen [Mass/Vol] 26 mg/dL High 7-18 [facility] Comment on above: Order Comment: 157 Performed By: #### L 500.2500, [id number] #### [facility] [address] [place], [address] Blood urea nitrogen (BUN)/cr eatinine ratioOrdered By: Melissa Reed on 07-11-2024 Urea nitrogen/Creatinine [Mass ratio] 30.4 mg/mg High 10-20 [facility] Carbon dioxide measurementOr dered By: Melissa Reed on 07-11-2024 CO2 [Moles/Vol] 32.0 mmol/L 21.0-32.0 [facility] Chloride measurementOrdered By: Melissa Reed on 07-11-2024 Chloride [Moles/Vol] 103 mmol/L 98-107 [facility] Estimated glomerular filtrat ion rate (GFR) AmericanOrdered By: Melissa Reed on 07-11-2024 Estimated GFR (MDRD) Amer 82 mL/min >60 [facility] Comment on above: GFR Calc Glomerular filtration rate ( GFR) estimationOrdered By: Melissa Reed on 07-11-2024 Estimated GFR (MDRD) Non-Af Amer 68 mL/min >60 [facility] Comment on above: Non- GFR Calc Glucose measurementOrdered B y: Melissa Reed on 07-11-2024 Glucose [Mass/Vol] 109 mg/dL High 74-106 [facility] Comment on above: Fasting Glucose resu lt from 100 to 125 mg/dL suggests IMPAIRED HOMEOSTASIS per A.D.A. criteria. Magnesiumon 07-11-2024 Magnesium [Mass/Vol] 2.2 mg/dL Normal 1.6-2.6 [facility] Comment on above: Order Comment: 157 Performed By: #### L 500.2500, L501.5200 #### [facility] [address] [place], [address] Magnesium measurementOrdered By: Melissa Reed on 07-11-2024 Magnesium [Mass/Vol] 2.2 mg/dL 1.6-2.6 [facility] Potassium measurementOrdered By: Melissa Reed on 07-11-2024 Potassium [Moles/Vol] 4.1 mmol/L 3.5-5.1 [facility] Serum anion gap measurementO rdered By: Melissa Reed on 07-11-2024 Anion gap [Moles/Vol] 5 mmol/L 5-15 [facility] Serum or plasma calcium danae urement (mass/volume)Ordered By: Melissa Reed on 07-11-2024 Calcium [Mass/Vol] 9.0 mg/dL 8.5-10.1 [facility] Serum or plasma creatinine m easurement (mass/volume)Ordered By: Melissa Reed on 07-11-2024 Creatinine [Mass/Vol] 0.86 mg/dL 0.55-1.02 [facility] Comment on above: The validity of the calculated GFR & GFRAA in patients over 70 years has not been determined. Clinical correlation is essential. Serum or plasma urea nitroge n measurement (mass/volume)Ordered By: Melissa Reed on 07-11-2024 Urea nitrogen [Mass/Vol] 26 mg/dL High 7-18 [facility] Sodium levelOrdered By: Rubin Reed on 07-11-2024 Sodium [Moles/Vol] 140 mmol/L 136-145 [facility] Basic Metabolic Profile (BMP )on 06-27-2024 BUN/CRE 23.7 RATIO High 10-20 [facility] Comment on above: Order Comment: 157 Performed By: #### L 500.2500, L501.5200 #### [facility] [address] [place], [address] CA,Total 8.7 mg/dL Normal 8.5-10.1 [facility] Comment on above: Order Comment: 157 Performed By: #### L 500.2500, L501.5200 #### [facility] [address] [place], [address] Chloride [Moles/Vol] 105 mmol/L Normal 98-107 [facility] Comment on above: Order Comment: 157 Performed By: #### L 500.2500, L501.5200 #### [facility] [address] [place], [address] CO2 [Moles/Vol] 31.0 mmol/L Normal 21.0-32.0 [facility] Comment on above: Order Comment: 157 Performed By: #### L 500.2500, L501.5200 #### [facility] [address] [place], [address] Creatinine [Mass/Vol] 1.18 mg/dL High 0.55-1.02 [facility] Comment on above: Order Comment: 157 Result Comment: The validity of the calculated GFR GFRAA in patients over 70 years has not been determined. Clinical correlation is essential. Performed By: #### L 500.2500, L501.5200 #### [facility] [address] [place], [address] EST GFR - AA 57 mL/min Low >60 [facility] Comment on above: Order Comment: 157 Result Comment: Afri can Algerian GFR Calc Performed By: #### L 500.2500, L501.5200 #### [facility] [address] [place], [address] GAP 4 Low 5-15 [facility] Comment on above: Order Comment: 157 Performed By: #### L 500.2500, L501.5200 #### [facility] [address] [place], [address] GFR/1.73 sq M.predicted among non-blacks MDRD (S/P/Bld) [Vol rate/Area] 47 mL/min/{1.73_m2} Low >60 [facility] Comment on above: Order Comment: 157 Result Comment: Non- GFR Calc Performed By: #### L 500.2500, L501.5200 #### [facility] [address] [place], [address] Glucose [Mass/Vol] 85 mg/dL Normal 74-106 [facility] Comment on above: Order Comment: 157 Performed By: #### L 500.2500, L501.5200 #### [facility] [address] [place], [address] Potassium [Moles/Vol] 3.8 mmol/L Normal 3.5-5.1 [facility] Comment on above: Order Comment: 157 Performed By: #### L 500.2500, L501.5200 #### [facility] [address] [place], [address] Sodium [Moles/Vol] 140 mmol/L Normal 136-145 [facility] Comment on above: Order Comment: 157 Performed By: #### L 500.2500, L501.5200 #### [facility] [address] [place], [address] Urea nitrogen [Mass/Vol] 28 mg/dL High 7-18 [facility] Comment on above: Order Comment: 157 Performed By: #### L 500.2500, L501.5200 #### [facility] [address] [place], [address] Blood urea nitrogen (BUN)/cr eatinine ratioOrdered By: Melissa Reed on 06-27-2024 Urea nitrogen/Creatinine [Mass ratio] 23.7 mg/mg High 10-20 [facility] Carbon dioxide measurementOr dered By: Melissa Reed on 06-27-2024 CO2 [Moles/Vol] 31.0 mmol/L 21.0-32.0 [facility] Chloride measurementOrdered By: Melissa Reed on 06-27-2024 Chloride [Moles/Vol] 105 mmol/L 98-107 [facility] Estimated glomerular filtrat ion rate (GFR) AmericanOrdered By: Melissa Reed on 06-27-2024 Estimated GFR (MDRD) Amer 57 mL/min Low >60 [facility] Comment on above: GFR Calc Glomerular filtration rate ( GFR) estimationOrdered By: Melissa Reed on 06-27-2024 Estimated GFR (MDRD) Non-Af Amer 47 mL/min Low >60 [facility] Comment on above: Non- GFR Calc Glucose measurementOrdered B y: Melissa Reed on 06-27-2024 Glucose [Mass/Vol] 85 mg/dL 74-106 [facility] Magnesiumon 06-27-2024 Magnesium [Mass/Vol] 2.2 mg/dL Normal 1.6-2.6 [facility] Comment on above: Order Comment: 157 Performed By: #### L 500.2500, L501.5200 #### [facility] [address] [place], [address] Magnesium measurementOrdered By: Melissa Reed on 06-27-2024 Magnesium [Mass/Vol] 2.2 mg/dL 1.6-2.6 [facility] Potassium measurementOrdered By: Melissa Reed on 06-27-2024 Potassium [Moles/Vol] 3.8 mmol/L 3.5-5.1 [facility] Serum anion gap measurementO rdered By: Melissa Reed on 06-27-2024 Anion gap [Moles/Vol] 4 mmol/L Low 5-15 [facility] Serum or plasma calcium danae urement (mass/volume)Ordered By: Melissa Reed on 06-27-2024 Calcium [Mass/Vol] 8.7 mg/dL 8.5-10.1 [facility] Serum or plasma creatinine m easurement (mass/volume)Ordered By: Melissa Reed on 06-27-2024 Creatinine [Mass/Vol] 1.18 mg/dL High 0.55-1.02 [facility] Comment on above: The validity of the calculated GFR & GFRAA in patients over 70 years has not been determined. Clinical correlation is essential. Serum or plasma urea nitroge n measurement (mass/volume)Ordered By: Melissa Reed on 06-27-2024 Urea nitrogen [Mass/Vol] 28 mg/dL High 7-18 [facility] Sodium levelOrdered By: Rubin Reed on 06-27-2024 Sodium [Moles/Vol] 140 mmol/L 136-145 [facility] Basic Metabolic Profile (BMP )on 06-13-2024 BUN/CRE 32.6 RATIO High 10-20 [facility] Comment on above: Performed By: #### L 501.5200, L500.2500 #### [facility] [address] [place], [address] CA,Total 8.7 mg/dL Normal 8.5-10.1 [facility] Comment on above: Performed By: #### L 501.5200, L500.2500 #### [facility] [address] [place], [address] Chloride [Moles/Vol] 105 mmol/L Normal 98-107 [facility] Comment on above: Performed By: #### L 501.5200, L500.2500 #### [facility] [address] [place], [address] CO2 [Moles/Vol] 28.0 mmol/L Normal 21.0-32.0 [facility] Comment on above: Performed By: #### L 501.5200, L500.2500 #### [facility] [address] [place], [address] Creatinine [Mass/Vol] 0.98 mg/dL Normal 0.55-1.02 [facility] Comment on above: Result Comment: The validity of the calculated GFR GFRAA in patients over 70 years has not been determined. Clinical correlation is essential. Performed By: #### L 501.5200, L500.2500 #### [facility] [address] [place], [address] EST GFR - AA 70 mL/min Normal >60 [facility] Comment on above: Result Comment: Afri can Algerian GFR Calc Performed By: #### L 501.5200, L500.2500 #### [facility] [address] [place], [address] GAP 5 Normal 5-15 [facility] Comment on above: Performed By: #### L 501.5200, L500.2500 #### [facility] [address] [place], [address] GFR/1.73 sq M.predicted among non-blacks MDRD (S/P/Bld) [Vol rate/Area] 58 mL/min/{1.73_m2} Low >60 [facility] Comment on above: Result Comment: Non- GFR Calc Performed By: #### L 501.5200, L500.2500 #### [facility] [address] [place], [address] Glucose [Mass/Vol] 161 mg/dL High 74-106 [facility] Comment on above: Result Comment: Fast ing Glucose result greater than or equal to 126 mg/dL suggests DIABETES MELLITUS per A.D.A. criteria. Performed By: #### L 501.5200, L500.2500 #### [facility] [address] [place], [address] Potassium [Moles/Vol] 3.8 mmol/L Normal 3.5-5.1 [facility] Comment on above: Result Comment: Slig ht Hemolysis, Result may be falsely increased. Performed By: #### L 501.5200, L500.2500 #### [facility] [address] [place], [address] Sodium [Moles/Vol] 138 mmol/L Normal 136-145 [facility] Comment on above: Performed By: #### L 501.5200, L500.2500 #### [facility] [address] [place], [address] Urea nitrogen [Mass/Vol] 32 mg/dL High 7-18 [facility] Comment on above: Performed By: #### L 501.5200, L500.2500 #### [facility] [address] [place], [place], [address] Blood urea nitrogen (BUN)/cr eatinine ratioOrdered By: Melissa Reed on 06-13-2024 Urea nitrogen/Creatinine [Mass ratio] 32.6 mg/mg High 10-20 [facility] Carbon dioxide measurementOr dered By: Melissa Reed on 06-13-2024 CO2 [Moles/Vol] 28.0 mmol/L 21.0-32.0 [facility] Chloride measurementOrdered By: Melissa Reed on 06-13-2024 Chloride [Moles/Vol] 105 mmol/L 98-107 [facility] Estimated glomerular filtrat ion rate (GFR) AmericanOrdered By: Melissa Reed on 06-13-2024 Estimated GFR (MDRD) Amer 70 mL/min >60 [facility] Comment on above: GFR Calc Glomerular filtration rate ( GFR) estimationOrdered By: Melissa Reed on 06-13-2024 Estimated GFR (MDRD) Non-Af Amer 58 mL/min Low >60 [facility] Comment on above: Non- GFR Calc Glucose measurementOrdered B y: Melissa Reed on 06-13-2024 Glucose [Mass/Vol] 161 mg/dL High 74-106 [facility] Comment on above: Fasting Glucose resu lt greater than or equal to 126 mg/dL suggests DIABETES MELLITUS per A.D.A. criteria. Magnesiumon 06-13-2024 Magnesium [Mass/Vol] 2.2 mg/dL Normal 1.6-2.6 [facility] Comment on above: Result Comment: Slig ht Hemolysis, Result may be falsely increased. Performed By: #### L 501.5200, L500.2500 #### [facility] [address] [place], [place], [id number] Magnesium measurementOrdered By: Melissa Reed on 06-13-2024 Magnesium [Mass/Vol] 2.2 mg/dL 1.6-2.6 [facility] Comment on above: Slight Hemolysis, Re sult may be falsely increased. Potassium measurementOrdered By: Melissa Reed on 06-13-2024 Potassium [Moles/Vol] 3.8 mmol/L 3.5-5.1 [facility] Comment on above: Slight Hemolysis, Re sult may be falsely increased. Serum anion gap measurementO rdered By: Melissa Reed on 06-13-2024 Anion gap [Moles/Vol] 5 mmol/L 5-15 [facility] Serum or plasma calcium danae urement (mass/volume)Ordered By: Melissa Reed on 06-13-2024 Calcium [Mass/Vol] 8.7 mg/dL 8.5-10.1 [facility] Serum or plasma creatinine m easurement (mass/volume)Ordered By: Melissa Reed on 06-13-2024 Creatinine [Mass/Vol] 0.98 mg/dL 0.55-1.02 [facility] Comment on above: The validity of the calculated GFR & GFRAA in patients over 70 years has not been determined. Clinical correlation is essential. Serum or plasma urea nitroge n measurement (mass/volume)Ordered By: Melissa Reed on 06-13-2024 Urea nitrogen [Mass/Vol] 32 mg/dL High 01-03 [facility] Sodium levelOrdered By: Rubin Reed on 06-13-2024 Sodium [Moles/Vol] 138 mmol/L 136-145 [facility] Basic Metabolic Profile (BMP )on 05-29-2024 BUN/CRE 22.1 RATIO High - [facility] Comment on above: Order Comment: 157 Performed By: #### L 501.5200, L500.2500 #### [facility] [address] [place], [address] CA,Total 8.9 mg/dL Normal 8.5-10.1 [facility] Comment on above: Order Comment: 157 Performed By: #### L 501.5200, L500.2500 #### [facility] [address] [place], [address] Chloride [Moles/Vol] 106 mmol/L Normal 98-107 [facility] Comment on above: Order Comment: 157 Performed By: #### L 501.5200, L500.2500 #### [facility] [address] [place], [address] CO2 [Moles/Vol] 32.0 mmol/L Normal 21.0-32.0 [facility] Comment on above: Order Comment: 157 Performed By: #### L 501.5200, L500.2500 #### [facility] [address] [place], [address] Creatinine [Mass/Vol] 1.31 mg/dL High 0.55-1.02 [facility] Comment on above: Order Comment: 157 Result Comment: The validity of the calculated GFR GFRAA in patients over 70 years has not been determined. Clinical correlation is essential. Performed By: #### L 501.5200, L500.2500 #### [facility] [address] [place], [address] EST GFR - AA 50 mL/min Low >60 [facility] Comment on above: Order Comment: 157 Result Comment: Afri can Algerian GFR Calc Performed By: #### L 501.5200, L500.2500 #### [facility] [address] [place], [address] GAP 5 Normal 5-15 [facility] Comment on above: Order Comment: 157 Performed By: #### L 501.5200, L500.2500 #### [facility] [address] [place], [address] GFR/1.73 sq M.predicted among non-blacks MDRD (S/P/Bld) [Vol rate/Area] 41 mL/min/{1.73_m2} Low >60 [facility] Comment on above: Order Comment: 157 Result Comment: Non- GFR Calc Performed By: #### L 501.5200, L500.2500 #### [facility] [address] [place], [address] Glucose [Mass/Vol] 116 mg/dL High 74-106 [facility] Comment on above: Order Comment: 157 Result Comment: Fast ing Glucose result from 100 to 125 mg/dL suggests IMPAIRED HOMEOSTASIS per A.D.A. criteria. Performed By: #### L 501.5200, L500.2500 #### [facility] [address] [place], [address] Potassium [Moles/Vol] 3.6 mmol/L Normal 3.5-5.1 [facility] Comment on above: Order Comment: 157 Performed By: #### L 501.5200, L500.2500 #### [facility] [address] [place], [address] Sodium [Moles/Vol] 142 mmol/L Normal 136-145 [facility] Comment on above: Order Comment: 157 Performed By: #### L 501.5200, L500.2500 #### [facility] [address] [place], [address] Urea nitrogen [Mass/Vol] 29 mg/dL High 7-18 [facility] Comment on above: Order Comment: 157 Performed By: #### L 501.5200, L500.2500 #### [facility] [address] [place], [address] Blood urea nitrogen (BUN)/cr eatinine ratioOrdered By: Melissa Reed on 05-29-2024 Urea nitrogen/Creatinine [Mass ratio] 22.1 mg/mg High 10-20 [facility] Carbon dioxide measurementOr dered By: Melissa Reed on 05-29-2024 CO2 [Moles/Vol] 32.0 mmol/L 21.0-32.0 [facility] Chloride measurementOrdered By: Melissa Reed on 05-29-2024 Chloride [Moles/Vol] 106 mmol/L 98-107 [facility] Estimated glomerular filtrat ion rate (GFR) AmericanOrdered By: Melissa Reed on 05-29-2024 Estimated GFR (MDRD) Amer 50 mL/min Low >60 [facility] Comment on above: GFR Calc Glomerular filtration rate ( GFR) estimationOrdered By: Melissa Reed on 05-29-2024 Estimated GFR (MDRD) Non-Af Amer 41 mL/min Low >60 [facility] Comment on above: Non- GFR Calc Glucose measurementOrdered B y: Melissa Reed on 05-29-2024 Glucose [Mass/Vol] 116 mg/dL High 74-106 [facility] Comment on above: Fasting Glucose resu lt from 100 to 125 mg/dL suggests IMPAIRED HOMEOSTASIS per A.D.A. criteria. Magnesiumon 05-29-2024 Magnesium [Mass/Vol] 2.0 mg/dL Normal 1.6-2.6 [facility] Comment on above: Order Comment: 157 Performed By: #### L 501.5200, L500.2500 #### [facility] [address] [facility] [place], [address] Magnesium measurementOrdered By: Melissa Reed on 05-29-2024 Magnesium [Mass/Vol] 2.0 mg/dL 1.6-2.6 [facility] Potassium measurementOrdered By: Melissa Reed on 05-29-2024 Potassium [Moles/Vol] 3.6 mmol/L 3.5-5.1 [facility] Serum anion gap measurementO rdered By: Melissa Reed on 05-29-2024 Anion gap [Moles/Vol] 5 mmol/L 5-15 [facility] Serum or plasma calcium danae urement (mass/volume)Ordered By: Melissa Reed on 05-29-2024 Calcium [Mass/Vol] 8.9 mg/dL 8.5-10.1 [facility] Serum or plasma creatinine m easurement (mass/volume)Ordered By: Melissa Reed on 05-29-2024 Creatinine [Mass/Vol] 1.31 mg/dL High 0.55-1.02 [facility] Comment on above: The validity of the calculated GFR & GFRAA in patients over 70 years has not been determined. Clinical correlation is essential. Serum or plasma urea nitroge n measurement (mass/volume)Ordered By: Melissa Reed on 05-29-2024 Urea nitrogen [Mass/Vol] 29 mg/dL High 7-18 [facility] Sodium levelOrdered By: Rubin Reed on 05-29-2024 Sodium [Moles/Vol] 142 mmol/L 136-145 [facility] Basic Metabolic Profile (BMP )on 05-15-2024 BUN/CRE 31.1 RATIO High 10-20 [facility] Comment on above: Order Comment: 157 Performed By: #### L 501.5200, L500.2500 #### [facility] [address] [place], [address] CA,Total 8.7 mg/dL Normal 8.5-10.1 [facility] Comment on above: Order Comment: 157 Performed By: #### L 501.5200, L500.2500 #### [facility] [address] [place], [address] Chloride [Moles/Vol] 105 mmol/L Normal 98-107 [facility] Comment on above: Order Comment: 157 Performed By: #### L 501.5200, L500.2500 #### [facility] [address] [place], [address] CO2 [Moles/Vol] 30.0 mmol/L Normal 21.0-32.0 [facility] Comment on above: Order Comment: 157 Performed By: #### L 501.5200, L500.2500 #### [facility] [address] [place], [address] Creatinine [Mass/Vol] 1.06 mg/dL High 0.55-1.02 [facility] Comment on above: Order Comment: 157 Result Comment: The validity of the calculated GFR GFRAA in patients over 70 years has not been determined. Clinical correlation is essential. Performed By: #### L 501.5200, L500.2500 #### [facility] [address] [place], [address] EST GFR - AA 64 mL/min Normal >60 [facility] Comment on above: Order Comment: 157 Result Comment: Afri can Algerian GFR Calc Performed By: #### L 501.5200, L500.2500 #### [facility] [address] [place], [address] GAP 5 Normal 5-15 [facility] Comment on above: Order Comment: 157 Performed By: #### L 501.5200, [id number] #### [facility] [address] [place], [address] GFR/1.73 sq M.predicted among non-blacks MDRD (S/P/Bld) [Vol rate/Area] 53 mL/min/{1.73_m2} Low >60 [facility] Comment on above: Order Comment: 157 Result Comment: Non- GFR Calc Performed By: #### L 501.5200, L500.2500 #### [facility] [address] [place], [address] Glucose [Mass/Vol] 119 mg/dL High 74-106 [facility] Comment on above: Order Comment: 157 Result Comment: Fast ing Glucose result from 100 to 125 mg/dL suggests IMPAIRED HOMEOSTASIS per A.D.A. criteria. Performed By: #### L 501.5200, L500.2500 #### [facility] [address] [place], [address] Potassium [Moles/Vol] 3.6 mmol/L Normal 3.5-5.1 [facility] Comment on above: Order Comment: 157 Performed By: #### L 501.5200, L500.2500 #### [facility] [address] [place], [address] Sodium [Moles/Vol] 140 mmol/L Normal 136-145 [facility] Comment on above: Order Comment: 157 Performed By: #### L 501.5200, L500.2500 #### [facility] [address] [place], [address] Urea nitrogen [Mass/Vol] 33 mg/dL High 7-18 [facility] Comment on above: Order Comment: 157 Performed By: #### L 501.5200, [id number] #### [facility] [address] [place], [address] Magnesiumon 05-15-2024 Magnesium [Mass/Vol] 2.1 mg/dL Normal 1.6-2.6 [facility] Comment on above: Order Comment: 157 Performed By: #### L 501.5200, L500.2500 #### [facility] [address] [place], [address] Basic Metabolic Profile (BMP )on 05-01-2024 BUN/CRE 21.4 RATIO High 10-20 [facility] Comment on above: Order Comment: 157 Performed By: #### M 100.2200, [id number] #### [facility] [address] [place], [address] CA,Total 9.2 mg/dL Normal 8.5-10.1 [facility] Comment on above: Order Comment: 157 Performed By: #### M 100.2200, [id number] #### [facility] [address] [place], [address] Chloride [Moles/Vol] 106 mmol/L Normal 98-107 [facility] Comment on above: Order Comment: 157 Performed By: #### M 100.2200, [id number] #### [facility] [address] [place], [address] CO2 [Moles/Vol] 27.0 mmol/L Normal 21.0-32.0 [facility] Comment on above: Order Comment: 157 Performed By: #### M 100.2200, [id number] #### [facility] [address] [place], [address] Creatinine [Mass/Vol] 1.26 mg/dL High 0.55-1.02 [facility] Comment on above: Order Comment: 157 Result Comment: The validity of the calculated GFR GFRAA in patients over 70 years has not been determined. Clinical correlation is essential. Performed By: #### M 100.2200, [id number] #### [facility] [address] [place], [address] EST GFR - AA 53 mL/min Low >60 [facility] Comment on above: Order Comment: 157 Result Comment: Afri can Algerian GFR Calc Performed By: #### M 100.2200, [id number] #### [facility] [address] [place], [address] GAP 7 Normal 5-15 [facility] Comment on above: Order Comment: 157 Performed By: #### M 100.2200, [id number] #### [facility] [address] [place], [address] GFR/1.73 sq M.predicted among non-blacks MDRD (S/P/Bld) [Vol rate/Area] 43 mL/min/{1.73_m2} Low >60 [facility] Comment on above: Order Comment: 157 Result Comment: Non- GFR Calc Performed By: #### M 100.2200, [id number] #### [facility] [address] [place], [address] Glucose [Mass/Vol] 126 mg/dL High 74-106 [facility] Comment on above: Order Comment: 157 Result Comment: Fast ing Glucose result greater than or equal to 126 mg/dL suggests DIABETES MELLITUS per A.D.A. criteria. Performed By: #### M 100.2200, [id number] #### [facility] [address] [place], [address] Potassium [Moles/Vol] 4.3 mmol/L Normal 3.5-5.1 [facility] Comment on above: Order Comment: 157 Performed By: #### M 100.2200, [id number] #### [facility] [address] [place], [address] Sodium [Moles/Vol] 140 mmol/L Normal 136-145 [facility] Comment on above: Order Comment: 157 Performed By: #### M 100.2200, [id number] #### [facility] [address] [place], [address] Urea nitrogen [Mass/Vol] 27 mg/dL High 01-03 [facility] Comment on above: Order Comment: 157 Performed By: #### M 100.2200, [id number] #### [facility] [address] [place], [address] Magnesiumon 05-01-2024 Magnesium [Mass/Vol] 2.1 mg/dL Normal 1.6-2.6 [facility] Comment on above: Order Comment: 157 Performed By: #### M 100.2200, [id number] #### [facility] [address] [place], [address] Basic Metabolic Profile (BMP )on 04-17-2024 BUN/CRE 20.4 RATIO High 04-07 [facility] Comment on above: Order Comment: 157 Performed By: #### L 500.2500, L501.5200 #### [facility] [address] [place], [address] CA,Total 8.6 mg/dL Normal 8.5-10.1 [facility] Comment on above: Order Comment: 157 Performed By: #### L 500.2500, L501.5200 #### [facility] [address] [place], [address] Chloride [Moles/Vol] 105 mmol/L Normal 98-107 [facility] Comment on above: Order Comment: 157 Performed By: #### L 500.2500, [id number] #### [facility] [address] [place], [address] CO2 [Moles/Vol] 31.0 mmol/L Normal 21.0-32.0 [facility] Comment on above: Order Comment: 157 Performed By: #### L 500.2500, L501.5200 #### [facility] [address] [place], [address] Creatinine [Mass/Vol] 1.03 mg/dL High 0.55-1.02 [facility] Comment on above: Order Comment: 157 Result Comment: The validity of the calculated GFR GFRAA in patients over 70 years has not been determined. Clinical correlation is essential. Performed By: #### L 500.2500, L501.5200 #### [facility] [address] [place], [address] EST GFR - AA 66 mL/min Normal >60 [facility] Comment on above: Order Comment: 157 Result Comment: Afri can Algerian GFR Calc Performed By: #### L 500.2500, L501.5200 #### [facility] [address] [place], [address] GAP 3 Low 5-15 [facility] Comment on above: Order Comment: 157 Performed By: #### L 500.2500, L501.5200 #### [facility] [address] [place], [address] GFR/1.73 sq M.predicted among non-blacks MDRD (S/P/Bld) [Vol rate/Area] 55 mL/min/{1.73_m2} Low >60 [facility] Comment on above: Order Comment: 157 Result Comment: Non- GFR Calc Performed By: #### L 500.2500, L501.5200 #### [facility] [address] [place], [address] Glucose [Mass/Vol] 172 mg/dL High 74-106 [facility] Comment on above: Order Comment: 157 Result Comment: Fast ing Glucose result greater than or equal to 126 mg/dL suggests DIABETES MELLITUS per A.D.A. criteria. Performed By: #### L 500.2500, L501.5200 #### [facility] [address] [place], [address] Potassium [Moles/Vol] 3.6 mmol/L Normal 3.5-5.1 [facility] Comment on above: Order Comment: 157 Performed By: #### L 500.2500, L501.5200 #### [facility] [address] [place], [address] Sodium [Moles/Vol] 140 mmol/L Normal 136-145 [facility] Comment on above: Order Comment: 157 Performed By: #### L 500.2500, L501.5200 #### [facility] [address] [place], [address] Urea nitrogen [Mass/Vol] 21 mg/dL High 7-18 [facility] Comment on above: Order Comment: 157 Performed By: #### L 500.2500, L501.5200 #### [facility] [address] [place], [address] Magnesiumon 04-17-2024 Magnesium [Mass/Vol] 2.3 mg/dL Normal 1.6-2.6 [facility] Comment on above: Performed By: #### L 500.2500, L501.5200 #### [facility] [address] [place], [address] [id number] 04-06-2024 VIT D,25 HYDROX Normal [facility] Comment on above: Order Comment: 157 Result Comment: TEST RESULTS LIMITS Vitamin D, 25-Hydroxy 32.0 ng/mL 30.0-100.0 Vitamin D deficiency has been defined by the [employer] and an Endocrine Society practice guideline as a level of serum 25-OH vitamin D less than 20 ng/mL (1,2). The Endocrine Society went on to further define vitamin D insufficiency as a level between 21 and 29 ng/mL (2). 1. IOM ([employer]). 2010. Dietary reference intakes for calcium and D. [place]: The National Academies Press. 2. Josias MF, Eddie NC, Patrick RODRIGUEZ, et al. Evaluation, treatment, and prevention of vitamin D deficiency: an Endocrine Society clinical practice guideline. JCEM. 2010; 96(7):1911-30. TESTING PERFORMED AT [facility]. ORIGINAL REPORT ON FILE IN LAB CONTAINS ADDITIONAL TEST SITE INFORMATION. Performed By: #### L 501.5200, L500.2500 #### [facility] [address] [place], [address] Basic Metabolic Profile (BMP )on 04-04-2024 BUN/CRE 23.3 RATIO High 04-07 [facility] Comment on above: Order Comment: CLEAN CATCH Performed By: #### M 100.2200, L400.0001 #### [facility] [address] [place], [address] CA,Total 9.4 mg/dL Normal 8.5-10.1 [facility] Comment on above: Order Comment: CLEAN CATCH Performed By: #### M 100.2200, [id number] #### [facility] [address] [place], [address] Chloride [Moles/Vol] 103 mmol/L Normal 98-107 [facility] Comment on above: Order Comment: CLEAN CATCH Performed By: #### M 100.2200, [id number] #### [facility] [address] [place], [address] CO2 [Moles/Vol] 33.0 mmol/L High 21.0-32.0 [facility] Comment on above: Order Comment: CLEAN CATCH Performed By: #### M 100.2200, L400.0001 #### [facility] [address] [place], [address] Creatinine [Mass/Vol] 1.20 mg/dL High 0.55-1.02 [facility] Comment on above: Order Comment: CLEAN CATCH Result Comment: The validity of the calculated GFR GFRAA in patients over 70 years has not been determined. Clinical correlation is essential. Performed By: #### M 100.2200, [id number] #### [facility] [address] [place], [address] EST GFR - AA 56 mL/min Low >60 [facility] Comment on above: Order Comment: CLEAN CATCH Result Comment: Afri can Algerian GFR Calc Performed By: #### M 100.0, L400.0001 #### [facility] [address] [place], [address] GAP 4 Low 5-15 [facility] Comment on above: Order Comment: CLEAN CATCH Performed By: #### M 100.2200, [id number] #### [facility] [address] [place], [address] GFR/1.73 sq M.predicted among non-blacks MDRD (S/P/Bld) [Vol rate/Area] 46 mL/min/{1.73_m2} Low >60 [facility] Comment on above: Order Comment: CLEAN CATCH Result Comment: Non- GFR Calc Performed By: #### M 100.2200, [id number] #### [facility] [address] [place], [address] Glucose [Mass/Vol] 120 mg/dL High 74-106 [facility] Comment on above: Order Comment: CLEAN CATCH Result Comment: Fast ing Glucose result from 100 to 125 mg/dL suggests IMPAIRED HOMEOSTASIS per A.D.A. criteria. Performed By: #### M 100.2200, [id number] #### [facility] [address] [place], [address] Potassium [Moles/Vol] 4.1 mmol/L Normal 3.5-5.1 [facility] Comment on above: Order Comment: CLEAN CATCH Performed By: #### M 100.2200, [id number] #### [facility] [address] [place], [address] Sodium [Moles/Vol] 140 mmol/L Normal 136-145 [facility] Comment on above: Order Comment: CLEAN CATCH Performed By: #### M 100.2200, [id number] #### [facility] [address] [place], [address] Urea nitrogen [Mass/Vol] 28 mg/dL High 7-18 [facility] Comment on above: Order Comment: CLEAN CATCH Performed By: #### M 100.2200, [id number] #### [facility] [address] [place], [address] Magnesiumon 04-04-2024 Magnesium [Mass/Vol] 2.1 mg/dL Normal 1.6-2.6 [facility] Comment on above: Order Comment: CLEAN CATCH Performed By: #### M 100.2200, [id number] #### [facility] [address] [place], [address] Basic Metabolic Profile (BMP )on 04-03-2024 BUN Normal 7-18 [facility] Comment on above: Order Comment: 157 Result Comment: UTO TOLD NURSE Performed By: #### L 500.2500, L501.5200 #### [facility] [address] [place], [address] BUN/CRE Normal 10-20 [facility] Comment on above: Order Comment: 157 Result Comment: UTO TOLD NURSE Performed By: #### L 500.2500, L501.5200 #### [facility] [address] [place], [address] CA,Total Normal 8.5-10.1 [facility] Comment on above: Order Comment: 157 Result Comment: UTO TOLD NURSE Performed By: #### L 500.2500, L501.5200 #### [facility] [address] [place], [address] CL Normal 98-107 [facility] Comment on above: Order Comment: 157 Result Comment: UTO TOLD NURSE Performed By: #### L 500.2500, L501.5200 #### [facility] [address] [place], [address] CO2 Normal 21.0-32.0 [facility] Comment on above: Order Comment: 157 Result Comment: UTO TOLD NURSE Performed By: #### L 500.2500, L501.5200 #### [facility] [address] [place], [address] CREAT,SERUM Normal 0.55-1.02 [facility] Comment on above: Order Comment: 157 Result Comment: UTO TOLD NURSE Performed By: #### L 500.2500, L501.5200 #### [facility] [address] [place], [address] EST GFR Normal >60 [facility] Comment on above: Order Comment: 157 Result Comment: UTO TOLD NURSE Performed By: #### L 500.2500, L501.5200 #### [facility] [address] [place], [address] EST GFR - AA Normal >60 [facility] Comment on above: Order Comment: 157 Result Comment: UTO TOLD NURSE Performed By: #### L 500.2500, L501.5200 #### [facility] [address] [place], [address] GAP Normal 5-15 [facility] Comment on above: Order Comment: 157 Result Comment: UTO TOLD NURSE Performed By: #### L 500.2500, L501.5200 #### [facility] [address] [place], [address] GLU Normal 74-106 [facility] Comment on above: Order Comment: 157 Result Comment: UTO TOLD NURSE Performed By: #### L 500.2500, L501.5200 #### [facility] [address] [place], [address] Potassium Normal 3.5-5.1 [facility] Comment on above: Order Comment: 157 Result Comment: UTO TOLD NURSE Performed By: #### L 500.2500, L501.5200 #### [facility] [address] [place], [address] Basic Metabolic Profile (BMP) Normal 136-145 [facility] Comment on above: Order Comment: 157 Result Comment: UTO TOLD NURSE Performed By: #### L 500.2500, L501.5200 #### [facility] [address] [place], [address] Hemoglobin A1con 04-01-2024 HbA1c (Bld) [Mass fraction] 6.2 % High 3.8-5.6 [facility] Comment on above: Order Comment: 157 Result Comment: Norm al < 5.7 % Prediabetic 5.7 - 6.4 % Diabetic >or= 6.5 % Please note range changes. Performed By: #### L 501.5200, L500.2500 #### [facility] [address] [place], [address] Thyroid Stim Hormone (TSH)on 04-01-2024 TSH 2.980 uIU/mL Normal 0.358-3.740 [facility] Comment on above: Order Comment: 157 Performed By: #### L 501.5200, L500.2500 #### [facility] [address] [place], [address] Basic Metabolic Profile (BMP )on 03-20-2024 BUN/CRE 20.4 RATIO High 10-20 [facility] Comment on above: Order Comment: 157 Performed By: #### L 500.2500, L501.5200 #### [facility] [address] [place], [address] CA,Total 8.8 mg/dL Normal 8.5-10.1 [facility] Comment on above: Order Comment: 157 Performed By: #### L 500.2500, L501.5200 #### [facility] [address] [place], [address] Chloride [Moles/Vol] 104 mmol/L Normal 98-107 [facility] Comment on above: Order Comment: 157 Performed By: #### L 500.2500, L501.5200 #### [facility] [address] [place], [address] CO2 [Moles/Vol] 27.0 mmol/L Normal 21.0-32.0 [facility] Comment on above: Order Comment: 157 Performed By: #### L 500.2500, L501.5200 #### [facility] [address] [place], [address] Creatinine [Mass/Vol] 0.98 mg/dL Normal 0.55-1.02 [facility] Comment on above: Order Comment: 157 Result Comment: The validity of the calculated GFR GFRAA in patients over 70 years has not been determined. Clinical correlation is essential. Performed By: #### L 500.2500, L501.5200 #### [facility] [address] [place], [address] EST GFR - AA 70 mL/min Normal >60 [facility] Comment on above: Order Comment: 157 Result Comment: Afri can Algerian GFR Calc Performed By: #### L 500.2500, L501.5200 #### [facility] [address] [place], [address] GAP 4 Low 5-15 [facility] Comment on above: Order Comment: 157 Performed By: #### L 500.2500, L501.5200 #### [facility] [address] [place], [address] GFR/1.73 sq M.predicted among non-blacks MDRD (S/P/Bld) [Vol rate/Area] 58 mL/min/{1.73_m2} Low >60 [facility] Comment on above: Order Comment: 157 Result Comment: Non- GFR Calc Performed By: #### L 500.2500, L501.5200 #### [facility] [address] [place], [address] Glucose [Mass/Vol] 102 mg/dL Normal 74-106 [facility] Comment on above: Order Comment: 157 Result Comment: Fast ing Glucose result from 100 to 125 mg/dL suggests IMPAIRED HOMEOSTASIS per A.D.A. criteria. Performed By: #### L 500.2500, L501.5200 #### [facility] [address] [place], [address] Potassium [Moles/Vol] 4.2 mmol/L Normal 3.5-5.1 [facility] Comment on above: Order Comment: 157 Result Comment: Mode rate Hemolysis, Result may be falsely increased. Performed By: #### L 500.2500, L501.5200 #### [facility] [address] [place], [address] Sodium [Moles/Vol] 135 mmol/L Low 136-145 [facility] Comment on above: Order Comment: 157 Performed By: #### L 500.2500, L501.5200 #### [facility] [address] [place], [address] Urea nitrogen [Mass/Vol] 20 mg/dL High 01-03 [facility] Comment on above: Order Comment: 157 Performed By: #### L 500.2500, L501.5200 #### [facility] [address] [place], [address] Magnesiumon 03-20-2024 Magnesium [Mass/Vol] 2.2 mg/dL Normal 1.6-2.6 [facility] Comment on above: Order Comment: 157 Result Comment: Mode rate Hemolysis, Result may be falsely increased. Performed By: #### L 500.2500, L501.5200 #### [facility] [address] [place], [address] Basic Metabolic Profile (BMP )on 03-06-2024 BUN/CRE 25.2 RATIO High 04-07 [facility] Comment on above: Order Comment: 157 Performed By: #### M 100.2200, L400.0001 #### [facility] [address] [place], [address] CA,Total 8.7 mg/dL Normal 8.5-10.1 [facility] Comment on above: Order Comment: 157 Performed By: #### M 100.2200, L400.0001 #### [facility] [address] [place], [address] Chloride [Moles/Vol] 104 mmol/L Normal 98-107 [facility] Comment on above: Order Comment: 157 Performed By: #### M 100.2200, L400.0001 #### [facility] [address] [place], [address] CO2 [Moles/Vol] 31.0 mmol/L Normal 21.0-32.0 [facility] Comment on above: Order Comment: 157 Performed By: #### M 100.2200, L400.0001 #### [facility] [address] [place], [address] Creatinine [Mass/Vol] 1.07 mg/dL High 0.55-1.02 [facility] Comment on above: Order Comment: 157 Result Comment: The validity of the calculated GFR GFRAA in patients over 70 years has not been determined. Clinical correlation is essential. Performed By: #### M 100.2200, L400.0001 #### [facility] [address] [place], [address] EST GFR - AA 63 mL/min Normal >60 [facility] Comment on above: Order Comment: 157 Result Comment: Afri can Algerian GFR Calc Performed By: #### M 100.2200, L400.0001 #### [facility] [address] [place], [address] GAP 6 Normal 5-15 [facility] Comment on above: Order Comment: 157 Performed By: #### M 100.2200, L400.0001 #### [facility] [address] [place], [address] GFR/1.73 sq M.predicted among non-blacks MDRD (S/P/Bld) [Vol rate/Area] 52 mL/min/{1.73_m2} Low >60 [facility] Comment on above: Order Comment: 157 Result Comment: Non- GFR Calc Performed By: #### M 100.2200, L400.0001 #### [facility] [address] [place], [address] Glucose [Mass/Vol] 123 mg/dL High 74-106 [facility] Comment on above: Order Comment: 157 Result Comment: Fast ing Glucose result from 100 to 125 mg/dL suggests IMPAIRED HOMEOSTASIS per A.D.A. criteria. Performed By: #### M 100.2200, L400.0001 #### [facility] [address] [place], [address] Potassium [Moles/Vol] 3.5 mmol/L Normal 3.5-5.1 [facility] Comment on above: Order Comment: 157 Performed By: #### M 100.2200, L400.0001 #### [facility] [address] [place], [address] Sodium [Moles/Vol] 141 mmol/L Normal 136-145 [facility] Comment on above: Order Comment: 157 Performed By: #### M 100.2200, L400.0001 #### [facility] [address] [place], [address] Urea nitrogen [Mass/Vol] 27 mg/dL High 7-18 [facility] Comment on above: Order Comment: 157 Performed By: #### M 100.2200, [id number] #### [facility] [address] [place], [address] Basic Metabolic Profile (BMP )on 02-20-2024 BUN/CRE 21.6 RATIO High 10-20 [facility] Comment on above: Order Comment: 157 Performed By: #### L 500.2500 #### [facility] [address] [place], [address] CA,Total 8.7 mg/dL Normal 8.5-10.1 [facility] Comment on above: Order Comment: 157 Performed By: #### L 500.2500 #### [facility] [address] [place], [address] Chloride [Moles/Vol] 104 mmol/L Normal 98-107 [facility] Comment on above: Order Comment: 157 Performed By: #### L 500.2500 #### [facility] [address] [place], [address] CO2 [Moles/Vol] 31.0 mmol/L Normal 21.0-32.0 [facility] Comment on above: Order Comment: 157 Performed By: #### L 500.2500 #### [facility] [address] [place], [address] Creatinine [Mass/Vol] 0.97 mg/dL Normal 0.55-1.02 [facility] Comment on above: Order Comment: 157 Result Comment: The validity of the calculated GFR GFRAA in patients over 70 years has not been determined. Clinical correlation is essential. Performed By: #### L 500.2500 #### [facility] [address] [place], [address] EST GFR - AA 71 mL/min Normal >60 [facility] Comment on above: Order Comment: 157 Result Comment: Afri can Algerian GFR Calc Performed By: #### L 500.2500 #### [facility] [address] [place], [address] GAP 6 Normal 5-15 [facility] Comment on above: Order Comment: 157 Performed By: #### L 500.2500 #### [facility] [address] [place], [address] GFR/1.73 sq M.predicted among non-blacks MDRD (S/P/Bld) [Vol rate/Area] 58 mL/min/{1.73_m2} Low >60 [facility] Comment on above: Order Comment: 157 Result Comment: Non- GFR Calc Performed By: #### L 500.2500 #### [facility] [address] [place], [address] Glucose [Mass/Vol] 160 mg/dL High 74-106 [facility] Comment on above: Order Comment: 157 Result Comment: Fast ing Glucose result greater than or equal to 126 mg/dL suggests DIABETES MELLITUS per A.D.A. criteria. Performed By: #### L 500.2500 #### [facility] [address] [place], [address] Potassium [Moles/Vol] 3.6 mmol/L Normal 3.5-5.1 [facility] Comment on above: Order Comment: 157 Performed By: #### L 500.2500 #### [facility] [address] [place], [address] Sodium [Moles/Vol] 141 mmol/L Normal 136-145 [facility] Comment on above: Order Comment: 157 Performed By: #### L 500.2500 #### [facility] [address] [place], [address] Urea nitrogen [Mass/Vol] 21 mg/dL High 7-18 [facility] Comment on above: Order Comment: 157 Performed By: #### L 500.2500 #### [facility] [address] [place], [address] 36on 02-05-2024 36 Okay, thank you appreciate her letting us know [facility] 36 We had returned mail on patient---I called her to get her new address. She stated that she is in assisted living at [facility] and will not be a patient at our office. She also wanted Dr. Lopez to know that she appreciates everything that he has done for her over the years. [facility] Basic Metabolic Profile (BMP )on 02-05-2024 BUN/CRE 21.9 RATIO High 10-20 [facility] Comment on above: Order Comment: 157 Performed By: #### L 500.2500, L501.5200 #### [facility] [address] [place], [address] CA,Total 8.5 mg/dL Normal 8.5-10.1 [facility] Comment on above: Order Comment: 157 Performed By: #### L 500.2500, L501.5200 #### [facility] [address] [place], [address] Chloride [Moles/Vol] 104 mmol/L Normal 98-107 [facility] Comment on above: Order Comment: 157 Performed By: #### L 500.2500, L501.5200 #### [facility] [address] [place], [address] CO2 [Moles/Vol] 29.0 mmol/L Normal 21.0-32.0 [facility] Comment on above: Order Comment: 157 Performed By: #### L 500.2500, L501.5200 #### [facility] [address] [place], [address] Creatinine [Mass/Vol] 1.14 mg/dL High 0.55-1.02 [facility] Comment on above: Order Comment: 157 Result Comment: The validity of the calculated GFR GFRAA in patients over 70 years has not been determined. Clinical correlation is essential. Performed By: #### L 500.2500, L501.5200 #### [facility] [address] [place], [address] EST GFR - AA 59 mL/min Low >60 [facility] Comment on above: Order Comment: 157 Result Comment: Afri can Algerian GFR Calc Performed By: #### L 500.2500, L501.5200 #### [facility] [address] [place], [address] GAP 5 Normal 5-15 [facility] Comment on above: Order Comment: 157 Performed By: #### L 500.2500, L501.5200 #### [facility] [address] [place], [address] GFR/1.73 sq M.predicted among non-blacks MDRD (S/P/Bld) [Vol rate/Area] 49 mL/min/{1.73_m2} Low >60 [facility] Comment on above: Order Comment: 157 Result Comment: Non- GFR Calc Performed By: #### L 500.2500, L501.5200 #### [facility] [address] [place], [address] Glucose [Mass/Vol] 231 mg/dL High 74-106 [facility] Comment on above: Order Comment: 157 Result Comment: Gluc ose result greater than or equal to 200 mg/dL suggests DIABETES MELLITUS per A.D.A. criteria. Performed By: #### L 500.2500, L501.5200 #### [facility] [address] [place], [address] Potassium [Moles/Vol] 3.6 mmol/L Normal 3.5-5.1 [facility] Comment on above: Order Comment: 157 Performed By: #### L 500.2500, L501.5200 #### [facility] [address] [place], [address] Sodium [Moles/Vol] 138 mmol/L Normal 136-145 [facility] Comment on above: Order Comment: 157 Performed By: #### L 500.2500, L501.5200 #### [facility] [address] [place], [address] Urea nitrogen [Mass/Vol] 25 mg/dL High 7-18 [facility] Comment on above: Order Comment: 157 Performed By: #### L 500.2500, L501.5200 #### [facility] [address] [place], [address] BNP,B-Type NATRIURETIC PEPTI Elizabeth 01-24-2024 Natriuretic peptide B (Bld) [Mass/Vol] 81.5 pg/mL Normal 0-100 [facility] Comment on above: Performed By: #### L 500.2500, L501.5200 #### [facility] [address] [place], [address] Basic Metabolic Profile (BMP )on 01-24-2024 BUN/CRE 17.1 RATIO Normal 10-20 [facility] Comment on above: Performed By: #### L 500.2500, L501.5200 #### [facility] [address] [place], [address] CA,Total 9.1 mg/dL Normal 8.5-10.1 [facility] Comment on above: Performed By: #### L 500.2500, L501.5200 #### [facility] [address] [place], [address] Chloride [Moles/Vol] 105 mmol/L Normal 98-107 [facility] Comment on above: Performed By: #### L 500.2500, L501.5200 #### [facility] [address] [place], [address] CO2 [Moles/Vol] 29.0 mmol/L Normal 21.0-32.0 [facility] Comment on above: Performed By: #### L 500.2500, L501.5200 #### [facility] [address] [place], [address] Creatinine [Mass/Vol] 1.17 mg/dL High 0.55-1.02 [facility] Comment on above: Result Comment: The validity of the calculated GFR GFRAA in patients over 70 years has not been determined. Clinical correlation is essential. Performed By: #### L 500.2500, L501.5200 #### [facility] [address] [place], [address] EST GFR - AA 57 mL/min Low >60 [facility] Comment on above: Result Comment: Afri can Algerian GFR Calc Performed By: #### L 500.2500, L501.5200 #### [facility] [address] [place], [address] GAP 7 Normal 5-15 [facility] Comment on above: Performed By: #### L 500.2500, L501.5200 #### [facility] [address] [place], [address] GFR/1.73 sq M.predicted among non-blacks MDRD (S/P/Bld) [Vol rate/Area] 47 mL/min/{1.73_m2} Low >60 [facility] Comment on above: Result Comment: Non- GFR Calc Performed By: #### L 500.2500, L501.5200 #### [facility] [address] [place], [address] Glucose [Mass/Vol] 125 mg/dL High 74-106 [facility] Comment on above: Result Comment: Fast ing Glucose result from 100 to 125 mg/dL suggests IMPAIRED HOMEOSTASIS per A.D.A. criteria. Performed By: #### L 500.2500, L501.5200 #### [facility] [address] [place], [address] Potassium [Moles/Vol] 3.8 mmol/L Normal 3.5-5.1 [facility] Comment on above: Performed By: #### L 500.2500, L501.5200 #### [facility] [address] [place], [address] Sodium [Moles/Vol] 141 mmol/L Normal 136-145 [facility] Comment on above: Performed By: #### L 500.2500, L501.5200 #### [facility] [address] [place], [address] Urea nitrogen [Mass/Vol] 20 mg/dL High 7-18 [facility] Comment on above: Performed By: #### L 500.2500, L501.5200 #### [facility] [address] [place], [address] Basic Metabolic Profile (BMP )on 01-22-2024 BUN/CRE 24.1 RATIO High 10-20 [facility] Comment on above: Order Comment: 157 Performed By: #### M 100.2200, L400.0001 #### [facility] [address] [place], [address] CA,Total 8.7 mg/dL Normal 8.5-10.1 [facility] Comment on above: Order Comment: 157 Performed By: #### M 100.2200, L400.0001 #### [facility] [address] [place], [address] Chloride [Moles/Vol] 105 mmol/L Normal 98-107 [facility] Comment on above: Order Comment: 157 Performed By: #### M 100.2200, L400.0001 #### [facility] [address] [place], [address] CO2 [Moles/Vol] 30.0 mmol/L Normal 21.0-32.0 [facility] Comment on above: Order Comment: 157 Performed By: #### M 100.2200, L400.0001 #### [facility] [address] [place], [address] Creatinine [Mass/Vol] 1.37 mg/dL High 0.55-1.02 [facility] Comment on above: Order Comment: 157 Result Comment: The validity of the calculated GFR GFRAA in patients over 70 years has not been determined. Clinical correlation is essential. Performed By: #### M 100.0, L400.0001 #### [facility] [address] [place], [address] EST GFR - AA 48 mL/min Low >60 [facility] Comment on above: Order Comment: 157 Result Comment: Afri can Algerian GFR Calc Performed By: #### M 100.2200, L400.0001 #### [facility] [address] [place], [address] GAP 5 Normal 5-15 [facility] Comment on above: Order Comment: 157 Performed By: #### M 100.2200, L400.0001 #### [facility] [address] [place], [address] GFR/1.73 sq M.predicted among non-blacks MDRD (S/P/Bld) [Vol rate/Area] 39 mL/min/{1.73_m2} Low >60 [facility] Comment on above: Order Comment: 157 Result Comment: Non- GFR Calc Performed By: #### M 100.2200, L400.0001 #### [facility] [address] [place], [address] Glucose [Mass/Vol] 217 mg/dL High 74-106 [facility] Comment on above: Order Comment: 157 Result Comment: Gluc ose result greater than or equal to 200 mg/dL suggests DIABETES MELLITUS per A.D.A. criteria. Performed By: #### M 100.2200, L400.0001 #### [facility] [address] [place], [address] Potassium [Moles/Vol] 4.0 mmol/L Normal 3.5-5.1 [facility] Comment on above: Order Comment: 157 Performed By: #### M 100.2200, [id number] #### [facility] [address] [place], [address] Sodium [Moles/Vol] 140 mmol/L Normal 136-145 [facility] Comment on above: Order Comment: 157 Performed By: #### M 100.2200, [id number] #### [facility] [address] [place], [address] Urea nitrogen [Mass/Vol] 33 mg/dL High 7-18 [facility] Comment on above: Order Comment: 157 Performed By: #### M 100.2200, L400.0001 #### [facility] [address] [place], [address] Progress Noteon 01-03-2024 Progress Note error Normal [facility] Progress Noteon 12-29-2023 Progress Note Please schedule AWV. Normal [facility] Progress Note Called patient---moustapha ne number is not working--sent letter by mail. [facility] 10-27-2023 36 Spoke with jaylon Pascual it was a mistake and he did not need anything for the patient. [facility] 3610-26-2023 36 As far as I know she still considers us her primary care however she misses a lot of appointments and cancels at other times. [facility] 36 Name of caller: Ankur Valdivia Contact phone number: [phone] Relationship to Patient: [facility] [place] Provider: Dr Lopez Practice: [facility] Chief Complaint/Reason for Call: Ankur Valdivia from [facility] would like to confirm that patient is still being treated at this office. Please advise. Best time of day caller can be reached: any Patient advised that office/PCP has 24-48 business hours to return their call: Yes [facility] Basophil percentageOrdered B y: Melissa Reed on 09-29-2023 Chloride [Moles/Vol] 106 mmol/L 98-107 [facility] Glucose [Mass/Vol] 165 mg/dL 74-106 [facility] Comment on above: Fasting Glucose resu lt greater than or equal to 126 mg/dL suggests DIABETES MELLITUS per A.D.A. criteria. Potassium [Moles/Vol] 3.5 mmol/L 3.5-5.1 [facility] Sodium [Moles/Vol] 135 mmol/L 136-145 [facility] - Chemistry and C hemistry - challengeOrdered By: Melissa Reed on 09-29-2023 CO2 [Moles/Vol] 26.0 mmol/L 21.0-32.0 [facility] Urea nitrogen/Creatinine [Mass ratio] 23.7 mg/mg 10-20 [facility] No Panel InformationOrdered By: Melissa Reed on 09-29-2023 Estimated GFR (MDRD) Amer 57 mL/min >60 [facility] Comment on above: GFR Calc Estimated GFR (MDRD) Non-Af Amer 47 mL/min >60 [facility] Comment on above: Non- GFR Calc Serum or plasma calcium danae urement (mass/volume)Ordered By: Melissa Reed on 09-29-2023 Calcium [Mass/Vol] 8.5 mg/dL 8.5-10.1 [facility] Serum or plasma creatinine m easurement (mass/volume)Ordered By: Melissa Reed on 09-29-2023 Creatinine [Mass/Vol] 1.18 mg/dL 0.55-1.02 [facility] Comment on above: The validity of the calculated GFR & GFRAA in patients over 70 years has not been determined. Clinical correlation is essential. Serum or plasma urea nitroge n measurement (mass/volume)Ordered By: Melissa Reed on 09-29-2023 Urea nitrogen [Mass/Vol] 28 mg/dL 7-18 [facility] Thin prep Papanicolaou smear with manual screeningOrdered By: Melissa Reed on 09-29-2023 Thin prep Papanicolaou smear with manual screening 3 5-15 [facility] Basophil percentageOrdered B y: Melissa Reed on 09-14-2023 Chloride [Moles/Vol] 106 mmol/L 98-107 [facility] Glucose [Mass/Vol] 191 mg/dL 74-106 [facility] Comment on above: Fasting Glucose resu lt greater than or equal to 126 mg/dL suggests DIABETES MELLITUS per A.D.A. criteria. Potassium [Moles/Vol] 3.8 mmol/L 3.5-5.1 [facility] Sodium [Moles/Vol] 138 mmol/L 136-145 [facility] Laboratory - Chemistry and C hemistry - challengeOrdered By: Melissa Reed on 09-14-2023 CO2 [Moles/Vol] 29.0 mmol/L 21.0-32.0 [facility] Urea nitrogen/Creatinine [Mass ratio] 17.8 mg/mg 10-20 [facility] No Panel InformationOrdered By: Melissa Reed on 09-14-2023 Estimated GFR (MDRD) Amer 63 mL/min >60 [facility] Comment on above: GFR Calc Estimated GFR (MDRD) Non-Af Amer 52 mL/min >60 [facility] Comment on above: Non- GFR Calc Serum or plasma calcium danae urement (mass/volume)Ordered By: Melissa Reed on 09-14-2023 Calcium [Mass/Vol] 8.7 mg/dL 8.5-10.1 [facility] Serum or plasma creatinine m easurement (mass/volume)Ordered By: Melissa Reed on 09-14-2023 Creatinine [Mass/Vol] 1.07 mg/dL 0.55-1.02 [facility] Comment on above: The validity of the calculated GFR & GFRAA in patients over 70 years has not been determined. Clinical correlation is essential. Serum or plasma urea nitroge n measurement (mass/volume)Ordered By: Melissa Reed on 09-14-2023 Urea nitrogen [Mass/Vol] 19 mg/dL 7-18 [facility] Thin prep Papanicolaou smear with manual screeningOrdered By: Melissa Reed on 09-14-2023 Thin prep Papanicolaou smear with manual screening 3 5-15 [facility] Basophil percentageOrdered B y: Melissa Reed on 08-31-2023 Chloride [Moles/Vol] 104 mmol/L 98-107 [facility] Glucose [Mass/Vol] 169 mg/dL 74-106 [facility] Comment on above: Fasting Glucose resu lt greater than or equal to 126 mg/dL suggests DIABETES MELLITUS per A.D.A. criteria. Potassium [Moles/Vol] 3.6 mmol/L 3.5-5.1 [facility] Sodium [Moles/Vol] 140 mmol/L 136-145 [facility] Laboratory - Chemistry and C hemistry - challengeOrdered By: Melissa Reed on 08-31-2023 CO2 [Moles/Vol] 30.0 mmol/L 21.0-32.0 [facility] Urea nitrogen/Creatinine [Mass ratio] 20.3 mg/mg 10-20 [facility] No Panel InformationOrdered By: Melissa Reed on 08-31-2023 Estimated GFR (MDRD) Amer 57 mL/min >60 [facility] Comment on above: GFR Calc Estimated GFR (MDRD) Non-Af Amer 47 mL/min >60 [facility] Comment on above: Non- GFR Calc Serum or plasma calcium danae urement (mass/volume)Ordered By: Melissa Reed on 08-31-2023 Calcium [Mass/Vol] 8.9 mg/dL 8.5-10.1 [facility] Serum or plasma creatinine m easurement (mass/volume)Ordered By: Melissa Reed on 08-31-2023 Creatinine [Mass/Vol] 1.18 mg/dL 0.55-1.02 [facility] Comment on above: The validity of the calculated GFR & GFRAA in patients over 70 years has not been determined. Clinical correlation is essential. Serum or plasma urea nitroge n measurement (mass/volume)Ordered By: Melissa Reed on 08-31-2023 Urea nitrogen [Mass/Vol] 24 mg/dL 7-18 [facility] Thin prep Papanicolaou smear with manual screeningOrdered By: Melissa Reed on 08-31-2023 Thin prep Papanicolaou smear with manual screening 6 5-15 [facility] Basophil percentageOrdered B y: Melissa Reed on 08-17-2023 Chloride [Moles/Vol] 105 mmol/L 98-107 [facility] Glucose [Mass/Vol] 192 mg/dL 74-106 [facility] Comment on above: Fasting Glucose resu lt greater than or equal to 126 mg/dL suggests DIABETES MELLITUS per A.D.A. criteria. Potassium [Moles/Vol] 3.8 mmol/L 3.5-5.1 [facility] Sodium [Moles/Vol] 138 mmol/L 136-145 [facility] Laboratory - Chemistry and C hemistry - challengeOrdered By: Melissa Reed on 08-17-2023 CO2 [Moles/Vol] 29.0 mmol/L 21.0-32.0 [facility] Urea nitrogen/Creatinine [Mass ratio] 22.8 mg/mg 10-20 [facility] No Panel InformationOrdered By: Melissa Reed on 08-17-2023 Estimated GFR (MDRD) Amer 59 mL/min >60 [facility] Comment on above: GFR Calc Estimated GFR (MDRD) Non-Af Amer 49 mL/min >60 [facility] Comment on above: Non- GFR Calc Serum or plasma calcium danae urement (mass/volume)Ordered By: Melissa Reed on 08-17-2023 Calcium [Mass/Vol] 8.8 mg/dL 8.5-10.1 [facility] Serum or plasma creatinine m easurement (mass/volume)Ordered By: Melissa Reed on 08-17-2023 Creatinine [Mass/Vol] 1.14 mg/dL 0.55-1.02 [facility] Comment on above: The validity of the calculated GFR & GFRAA in patients over 70 years has not been determined. Clinical correlation is essential. Serum or plasma urea nitroge n measurement (mass/volume)Ordered By: Melissa Reed on 08-17-2023 Urea nitrogen [Mass/Vol] 26 mg/dL 7-18 [facility] Thin prep Papanicolaou smear with manual screeningOrdered By: Melissa Reed on 08-17-2023 Thin prep Papanicolaou smear with manual screening 4 5-15 [facility] Basophil percentageOrdered B y: Melissa Reed on 08-14-2023 Chloride [Moles/Vol] 104 mmol/L 98-107 [facility] Glucose [Mass/Vol] 146 mg/dL 74-106 [facility] Comment on above: Fasting Glucose resu lt greater than or equal to 126 mg/dL suggests DIABETES MELLITUS per A.D.A. criteria. Potassium [Moles/Vol] 3.4 mmol/L 3.5-5.1 [facility] Sodium [Moles/Vol] 138 mmol/L 136-145 [facility] Laboratory - Chemistry and C hemistry - challengeOrdered By: Melissa Reed on 08-14-2023 CO2 [Moles/Vol] 29.0 mmol/L 21.0-32.0 [facility] Urea nitrogen/Creatinine [Mass ratio] 24.8 mg/mg 10-20 [facility] No Panel InformationOrdered By: Melissa Reed on 08-14-2023 Estimated GFR (MDRD) Amer 60 mL/min >60 [facility] Comment on above: GFR Calc Estimated GFR (MDRD) Non-Af Amer 49 mL/min >60 [facility] Comment on above: Non- GFR Calc Serum or plasma calcium danae urement (mass/volume)Ordered By: Melissa Reed on 08-14-2023 Calcium [Mass/Vol] 9.1 mg/dL 8.5-10.1 [facility] Serum or plasma creatinine m easurement (mass/volume)Ordered By: Melissa Reed on 08-14-2023 Creatinine [Mass/Vol] 1.13 mg/dL 0.55-1.02 [facility] Comment on above: The validity of the calculated GFR & GFRAA in patients over 70 years has not been determined. Clinical correlation is essential. Serum or plasma urea nitroge n measurement (mass/volume)Ordered By: Melissa Reed on 08-14-2023 Urea nitrogen [Mass/Vol] 28 mg/dL 7-18 [facility] Thin prep Papanicolaou smear with manual screeningOrdered By: Melissa Reed on 08-14-2023 Thin prep Papanicolaou smear with manual screening 5 5-15 [facility] Basophil percentageOrdered B y: Melissa Reed on 07-31-2023 Chloride [Moles/Vol] 107 mmol/L 98-107 [facility] Glucose [Mass/Vol] 149 mg/dL 74-106 [facility] Comment on above: Fasting Glucose resu lt greater than or equal to 126 mg/dL suggests DIABETES MELLITUS per A.D.A. criteria. Potassium [Moles/Vol] 3.4 mmol/L 3.5-5.1 [facility] Sodium [Moles/Vol] 142 mmol/L 136-145 [facility] Laboratory - Chemistry and C hemistry - challengeOrdered By: Melissa Reed on 07-31-2023 CO2 [Moles/Vol] 30.0 mmol/L 21.0-32.0 [facility] Urea nitrogen/Creatinine [Mass ratio] 21.7 mg/mg 10-20 [facility] No Panel InformationOrdered By: Melissa Reed on 07-31-2023 Estimated GFR (MDRD) Amer 64 mL/min >60 [facility] Comment on above: GFR Calc Estimated GFR (MDRD) Non-Af Amer 53 mL/min >60 [facility] Comment on above: Non- GFR Calc Serum or plasma calcium danae urement (mass/volume)Ordered By: Melissa Reed on 07-31-2023 Calcium [Mass/Vol] 8.7 mg/dL 8.5-10.1 [facility] Serum or plasma creatinine m easurement (mass/volume)Ordered By: Melissa Reed on 07-31-2023 Creatinine [Mass/Vol] 1.06 mg/dL 0.55-1.02 [facility] Comment on above: The validity of the calculated GFR & GFRAA in patients over 70 years has not been determined. Clinical correlation is essential. Serum or plasma urea nitroge n measurement (mass/volume)Ordered By: Melissa Reed on 07-31-2023 Urea nitrogen [Mass/Vol] 23 mg/dL 7-18 [facility] Thin prep Papanicolaou smear with manual screeningOrdered By: Melissa Reed on 07-31-2023 Thin prep Papanicolaou smear with manual screening 5 5-15 [facility] Basophil percentageOrdered B y: Melissa Reed on 07-17-2023 Chloride [Moles/Vol] 106 mmol/L 98-107 [facility] Glucose [Mass/Vol] 141 mg/dL 74-106 [facility] Comment on above: Fasting Glucose resu lt greater than or equal to 126 mg/dL suggests DIABETES MELLITUS per A.D.A. criteria. Potassium [Moles/Vol] 4.0 mmol/L 3.5-5.1 [facility] Comment on above: Moderate Hemolysis, Result may be falsely increased. Sodium [Moles/Vol] 137 mmol/L 136-145 [facility] Laboratory - Chemistry and C hemistry - challengeOrdered By: Melissa Reed on 07-17-2023 CO2 [Moles/Vol] 29.0 mmol/L 21.0-32.0 [facility] Urea nitrogen/Creatinine [Mass ratio] 22.6 mg/mg 10-20 [facility] No Panel InformationOrdered By: Melissa Reed on 07-17-2023 Estimated GFR (MDRD) Amer 58 mL/min >60 [facility] Comment on above: GFR Calc Estimated GFR (MDRD) Non-Af Amer 48 mL/min >60 [facility] Comment on above: Non- GFR Calc Serum or plasma calcium danae urement (mass/volume)Ordered By: Melissa Reed on 07-17-2023 Calcium [Mass/Vol] 9.3 mg/dL 8.5-10.1 [facility] Serum or plasma creatinine m easurement (mass/volume)Ordered By: Melissa Reed on 07-17-2023 Creatinine [Mass/Vol] 1.15 mg/dL 0.55-1.02 [facility] Comment on above: The validity of the calculated GFR & GFRAA in patients over 70 years has not been determined. Clinical correlation is essential. Serum or plasma urea nitroge n measurement (mass/volume)Ordered By: Melissa Reed on 07-17-2023 Urea nitrogen [Mass/Vol] 26 mg/dL 7-18 [facility] Thin prep Papanicolaou smear with manual screeningOrdered By: Melissa Reed on 07-17-2023 Thin prep Papanicolaou smear with manual screening 2 5-15 [facility] Basophil percentageOrdered B y: Melissa Reed on 07-03-2023 Chloride [Moles/Vol] 106 mmol/L 98-107 [facility] Glucose [Mass/Vol] 134 mg/dL 74-106 [facility] Comment on above: Fasting Glucose resu lt greater than or equal to 126 mg/dL suggests DIABETES MELLITUS per A.D.A. criteria. Potassium [Moles/Vol] 4.0 mmol/L 3.5-5.1 [facility] Sodium [Moles/Vol] 140 mmol/L 136-145 [facility] Laboratory - Chemistry and C hemistry - challengeOrdered By: Melissa Reed on 07-03-2023 CO2 [Moles/Vol] 28.0 mmol/L 21.0-32.0 [facility] Urea nitrogen/Creatinine [Mass ratio] 20.5 mg/mg 10-20 [facility] No Panel InformationOrdered By: Melissa Reed on 07-03-2023 Estimated GFR (MDRD) Amer 71 mL/min >60 [facility] Comment on above: GFR Calc Estimated GFR (MDRD) Non-Af Amer 58 mL/min >60 [facility] Comment on above: Non- GFR Calc Serum or plasma calcium danae urement (mass/volume)Ordered By: Melissa Reed on 07-03-2023 Calcium [Mass/Vol] 8.6 mg/dL 8.5-10.1 [facility] Serum or plasma creatinine m easurement (mass/volume)Ordered By: Melissa Reed on 07-03-2023 Creatinine [Mass/Vol] 0.98 mg/dL 0.55-1.02 [facility] Comment on above: The validity of the calculated GFR & GFRAA in patients over 70 years has not been determined. Clinical correlation is essential. Serum or plasma urea nitroge n measurement (mass/volume)Ordered By: Melissa Reed on 07-03-2023 Urea nitrogen [Mass/Vol] 20 mg/dL 01-03 [facility] Thin prep Papanicolaou smear with manual screeningOrdered By: Melissa Reed on 07-03-2023 Thin prep Papanicolaou smear with manual screening 6 10-31 [facility] Culture, urineOrdered By: Sd Reed on 06-23-2023 Bacteria identified Cx Nom (U) ESBL Escherichia coli [facility] Progress Noteon 06-23-2023 Progress Note EMR reviewed. The patient was at [facility] for several weeks after a hospitalization. [facility] called and spoke with a staff member today and the patient was discharged to the [facility] facility. PMH: RLS, HTN, GI-BLEED, CKD3, DM2, HYPOTHYROID, ANXIETY, DEPRESSION, HYPOKALEMIA, HYPERLIPIDEMIA HTN MEDS: AMLODIPINE 10MG DAILY SHE STATED THE NURSE HAS BEEN CHECKING HER BP'S 3 TIMES DAILY DM MEDS: LANTUS INSULIN 19 UNITS DAILY HUMALOG INSULIN 10 UNITS 3 TIMES DAILY WITH MEALS [id number] ON 03/01/23 THE PATIENT STATED SHE IS [...] IS NOW SEEING THE DOCTOR AT THE [facility]. SDOH COMPLETED. [facility] WILL DISCHARGE THE PATIENT FROM THE [facility]. PROGRAM DUE TO PCP CHANGING. Normal [facility] Absolute lymphocyte countOrd ered By: Melissa Reed on 06-20-2023 Lymphocytes Auto (Unsp spec) [#/Vol] 1.72 10*3/uL 0.83-4.51 [facility] Basophil percentageOrdered B y: Melissa Reed on 06-20-2023 Basophils/100 WBC (Bld) 1.0 % 0-1 [facility] Chloride [Moles/Vol] 108 mmol/L 98-107 [facility] Eosinophils/100 WBC (Bld) 7.8 % 0-5 [facility] Glucose [Mass/Vol] 155 mg/dL 74-106 [facility] Comment on above: Fasting Glucose resu lt greater than or equal to 126 mg/dL suggests DIABETES MELLITUS per A.D.A. criteria. Neutrophils (Bld) [#/Vol] 5.3 10*3/uL 2.0-7.7 [facility] Neutrophils/100 WBC (Bld) 61.1 % 47-70 [facility] Potassium [Moles/Vol] 4.0 mmol/L 3.5-5.1 [facility] Sodium [Moles/Vol] 140 mmol/L 136-145 [facility] WBC (Bld) [#/Vol] 8.6 10*3/uL 4.4-11.0 [facility] Blood erythrocytes count (nu mber/volume)Ordered By: Melissa Reed on 06-20-2023 RBC (Bld) [#/Vol] 3.97 10*6/uL 4.2-5.4 [facility] Blood hemoglobin measurement (mass/volume)Ordered By: Melissa Reed on 06-20-2023 Hemoglobin (Bld) [Mass/Vol] 11.0 g/dL 12.0-15.0 [facility] Blood lymphocytes/100 leukoc ytesOrdered By: Melissa Reed on 06-20-2023 Lymphocytes/100 WBC (Bld) 20.0 % 19-41 [facility] Blood monocytes/100 leukocyt esOrdered By: Melissa Reed on 06-20-2023 Monocytes/100 WBC (Bld) 9.9 % 0-10 [facility] Blood platelet mean volumeOr dered By: Melissa Reed on 06-20-2023 Platelet mean volume (Bld) [Entitic vol] 9.9 fL 6.2-12.0 [facility] Determination of erythrocyte mean corpuscular volume (MCV)Ordered By: Melissa Reed on 06-20-2023 MCV (RBC) [Entitic vol] 93.2 fL 81-99 [facility] Hematocrit Auto (Bld) [Volum e fraction]Ordered By: Melissa Reed on 06-20-2023 Hematocrit (Bld) [Volume fraction] 37.0 % 37-47 [facility] Laboratory - Chemistry and C hemistry - challengeOrdered By: Melissa Reed on 06-20-2023 CO2 [Moles/Vol] 30.0 mmol/L 21.0-32.0 [facility] Cobalamin (Vitamin B12) [Mass/Vol] 430 pg/mL 211-911 [facility] Magnesium [Mass/Vol] 2.0 mg/dL 1.6-2.6 [facility] Urea nitrogen/Creatinine [Mass ratio] 19.8 mg/mg 10-20 [facility] Laboratory - Hematology and Cell countsOrdered By: Melissa Reed on 06-20-2023 Erythrocyte distribution width (RBC) [Entitic vol] 48.2 fL 35.1-43.9 [facility] Erythrocyte distribution width (RBC) [Ratio] 14.2 % 11.6-14.6 [facility] Immature granulocytes/100 WBC (Bld) 0.200 % 0.0-0.9 [facility] Comment on above: IG% - Immature Granu locytes (promyelocytes, myelocytes and metamyelocytes) > 1% indicates that a LEFT SHIFT is Present. MCH (RBC) [Entitic mass] 27.7 pg 27.0-32.0 [facility] Nucleated RBC/100 WBC (Bld) [Ratio] 0 % 0-5 [facility] MCHC Auto (RBC) [Mass/Vol]Or dered By: Melissa Reed on 06-20-2023 MCHC (RBC) [Mass/Vol] 29.7 g/dL 32-36 [facility] No Panel InformationOrdered By: Melissa Reed on 06-20-2023 Estimated GFR (MDRD) Amer 72 mL/min >60 [facility] Comment on above: GFR Calc Estimated GFR (MDRD) Non-Af Amer 60 mL/min >60 [facility] Comment on above: Non- GFR Calc Thyroid Stimulating Hormone (TSH) 1.57 uIU/mL 0.358-3.74 [facility] Vitamin D 25-Hydroxy 60.6 ng/mL [facility] Comment on above: Vitamin D 25(OH) Sta tus Range Deficiency <20 ng/mL (50nmol/L) Insufficiency 20 - 30 ng/mL (50 - 75 nmol/L) Sufficiency 30 - 100 ng/mL (75 - 250 nmol/L) Toxicity >100 ng/mL (>250 nmol/L) Platelets bldOrdered By: Lillian Reed on 06-20-2023 Platelets (Bld) [#/Vol] 317 10*3/uL 150-450 [facility] Serum or plasma calcium danae urement (mass/volume)Ordered By: Melissa Reed on 06-20-2023 Calcium [Mass/Vol] 8.8 mg/dL 8.5-10.1 [facility] Serum or plasma creatinine m easurement (mass/volume)Ordered By: Melissa Reed on 06-20-2023 Creatinine [Mass/Vol] 0.96 mg/dL 0.55-1.02 [facility] Comment on above: The validity of the calculated GFR & GFRAA in patients over 70 years has not been determined. Clinical correlation is essential. Serum or plasma urea nitroge n measurement (mass/volume)Ordered By: Melissa Reed on 06-20-2023 Urea nitrogen [Mass/Vol] 19 mg/dL 7-18 [facility] Thin prep Papanicolaou smear with manual screeningOrdered By: Melissa Reed on 06-20-2023 Thin prep Papanicolaou smear with manual screening 2 5-15 [facility] Whole blood hemoglobin A1c/t otal hemoglobin ratio (mass fraction)Ordered By: Melissa Reed on 06-20-2023 HbA1c (Bld) [Mass fraction] 6.4 % 3.8-5.6 [facility] Comment on above: Normal < 5.7 % Predi abetic 5.7 - 6.4 % Diabetic >or= 6.5 % Please note range changes. Progress Noteon 06-07-2023 Progress Note CM called and spoke with a staff member at [facility]. The patient is still at the facility. CM will follow-up with the patient once she is discharged to home. Normal [facility] Culture, urineOrdered By: Anastasia Olvera on 05-10-2023 Bacteria identified Cx Nom (U) Klebsiella pneumoniae sp pneum [facility] Bacteria identified Cx Nom (U) Klebsiella pneumoniae sp pneum [facility] No Panel InformationOrdered By: Lambert Olvera on 05-01-2023 Thyroid Stimulating Hormone (TSH) 1.91 uIU/mL 0.358-3.74 [facility] Progress Noteon 04-06-2023 Progress Note EMR REVIEWED. [...] DAILY HUMALOG INSULIN 10 UNITS WITH MEALS [id number] ON 03/01/23 ?MONITORING BLOOD SUGARS CM CALLED AND SPOKE WITH THE PT'S SON-MAXIMINO. HE STATED THE PT. IS CURRENTLY ADMITTED TO [facility]. HE STATED THE PT. WILL PROBABLY BE GOING TO AN ASSISTED LIVING FACILITY WHEN SHE IS DISCHARGED DUE TO THE PT. NOT BEING ABLE TO CARE FOR HERSELF ALONE AT HOME. CM WILL FOLLOW-UP WITH THE PT. ONCE SHE IS DISCHARGED FROM SNF. Normal [facility] Basophil percentageOrdered B y: Lambert Olvera on 04-04-2023 Bilirubin [Mass/Vol] 0.30 mg/dL 0.20-1.00 [facility] Comment on above: For patients on eltr ombopag therapy, use of [employer] [place] TBIL is not recommended. Chloride [Moles/Vol] 109 mmol/L 98-107 [facility] Glucose [Mass/Vol] 112 mg/dL 74-106 [facility] Comment on above: Fasting Glucose resu lt from 100 to 125 mg/dL suggests IMPAIRED HOMEOSTASIS per A.D.A. criteria. Potassium [Moles/Vol] 4.2 mmol/L 3.5-5.1 [facility] Protein [Mass/Vol] 6.5 g/dL 6.4-8.2 [facility] Sodium [Moles/Vol] 140 mmol/L 136-145 [facility] WBC (Bld) [#/Vol] 8.5 10*3/uL 4.4-11.0 [facility] Blood erythrocytes count (nu mber/volume)Ordered By: Lambert Olvera on 04-04-2023 RBC (Bld) [#/Vol] 4.34 10*6/uL 4.2-5.4 [facility] Blood hemoglobin measurement (mass/volume)Ordered By: Lambert Olvera on 04-04-2023 Hemoglobin (Bld) [Mass/Vol] 11.9 g/dL 12.0-15.0 [facility] Blood platelet mean volumeOr dered By: Lambert Olvera on 04-04-2023 Platelet mean volume (Bld) [Entitic vol] 10.4 fL 6.2-12.0 [facility] Determination of erythrocyte mean corpuscular volume (MCV)Ordered By: Lambert Olvera on 04-04-2023 MCV (RBC) [Entitic vol] 91.9 fL 81-99 [facility] Hematocrit Auto (Bld) [Volum e fraction]Ordered By: Lambert Olvera on 04-04-2023 Hematocrit (Bld) [Volume fraction] 39.9 % 37-47 [facility] Laboratory - Chemistry and C hemistry - challengeOrdered By: Lambert Olvera on 04-04-2023 ALP [Catalytic activity/Vol] 96 U/L 45-117 [facility] ALT [Catalytic activity/Vol] 28 U/L 13-56 [facility] CO2 [Moles/Vol] 27.0 mmol/L 21.0-32.0 [facility] Globulin (S) [Mass/Vol] 3.7 g/dL 2.2-4.2 [facility] Urea nitrogen/Creatinine [Mass ratio] 21.8 mg/mg 10-20 [facility] Laboratory - Hematology and Cell countsOrdered By: Lambert Olvera on 04-04-2023 Erythrocyte distribution width (RBC) [Entitic vol] 47.0 fL 35.1-43.9 [facility] Erythrocyte distribution width (RBC) [Ratio] 13.9 % 11.6-14.6 [facility] MCH (RBC) [Entitic mass] 27.4 pg 27.0-32.0 [facility] MCHC Auto (RBC) [Mass/Vol]Or dered By: Lambert Olvera on 04-04-2023 MCHC (RBC) [Mass/Vol] 29.8 g/dL 32-36 [facility] No Panel InformationOrdered By: Lambert Olvera on 04-04-2023 Estimated GFR (MDRD) Amer 76 mL/min >60 [facility] Comment on above: GFR Calc Estimated GFR (MDRD) Non-Af Amer 63 mL/min >60 [facility] Comment on above: Non- GFR Calc Platelets bldOrdered By: Lisa Olvera on 04-04-2023 Platelets (Bld) [#/Vol] 315 10*3/uL 150-450 [facility] Serum or plasma albumin danae urement (mass/volume)Ordered By: Lambert Olvera on 04-04-2023 Albumin [Mass/Vol] 2.8 g/dL 3.2-5.0 [facility] Serum or plasma albumin/glob ulin mass ratioOrdered By: Lambert Olvera on 04-04-2023 Albumin/Globulin [Mass ratio] 0.8 {ratio} 0.9-2.4 [facility] Serum or plasma calcium danae urement (mass/volume)Ordered By: Lambert Olvera on 04-04-2023 Calcium [Mass/Vol] 8.6 mg/dL 8.5-10.1 [facility] Serum or plasma creatinine m easurement (mass/volume)Ordered By: Lambert Olvera on 04-04-2023 Creatinine [Mass/Vol] 0.92 mg/dL 0.55-1.02 [facility] Comment on above: The validity of the calculated GFR & GFRAA in patients over 70 years has not been determined. Clinical correlation is essential. Serum or plasma urea nitroge n measurement (mass/volume)Ordered By: Lambert Olvera on 04-04-2023 Urea nitrogen [Mass/Vol] 20 mg/dL 7-18 [facility] Thin prep Papanicolaou smear with manual screeningOrdered By: Lambert Olvera on 04-04-2023 Thin prep Papanicolaou smear with manual screening 20 U/L 15-37 [facility] Thin prep Papanicolaou smear with manual screening 4 5-15 [facility] Progress Noteon 03-31-2023 Progress Note THE PT. WAS IDENTIFI ED BY [facility] RN FROM THE [facility] DAILY CENSUS REPORT. CM WILL CONTINUE TO FOLLOW-UP WITH THE PT. FOR ANY ONGOING CM NEEDS. Normal [facility] Basophil percentageOrdered B y: Lambert Olvera on 03-20-2023 Chloride [Moles/Vol] 105 mmol/L 98-107 [facility] Glucose [Mass/Vol] 103 mg/dL 74-106 [facility] Comment on above: Fasting Glucose resu lt from 100 to 125 mg/dL suggests IMPAIRED HOMEOSTASIS per A.D.A. criteria. Potassium [Moles/Vol] 3.7 mmol/L 3.5-5.1 [facility] Sodium [Moles/Vol] 138 mmol/L 136-145 [facility] WBC (Bld) [#/Vol] 8.0 10*3/uL 4.4-11.0 [facility] Blood erythrocytes count (nu mber/volume)Ordered By: Lambert Olvera on 03-20-2023 RBC (Bld) [#/Vol] 3.75 10*6/uL 4.2-5.4 [facility] Blood hemoglobin measurement (mass/volume)Ordered By: Lambert Olvera on 03-20-2023 Hemoglobin (Bld) [Mass/Vol] 10.3 g/dL 12.0-15.0 [facility] Blood platelet mean volumeOr dered By: Lambert Olvera on 03-20-2023 Platelet mean volume (Bld) [Entitic vol] 10.5 fL 6.2-12.0 [facility] Determination of erythrocyte mean corpuscular volume (MCV)Ordered By: Lambert Olvera on 03-20-2023 MCV (RBC) [Entitic vol] 91.7 fL 81-99 [facility] Hematocrit Auto (Bld) [Volum e fraction]Ordered By: Lambert Olvera on 03-20-2023 Hematocrit (Bld) [Volume fraction] 34.4 % 37-47 [facility] Laboratory - Chemistry and C hemistry - challengeOrdered By: Lambert Olvera on 03-20-2023 CO2 [Moles/Vol] 30.0 mmol/L 21.0-32.0 [facility] Urea nitrogen/Creatinine [Mass ratio] 24.2 mg/mg 10-20 [facility] Laboratory - Hematology and Cell countsOrdered By: Lambert Olvera on 03-20-2023 Erythrocyte distribution width (RBC) [Entitic vol] 45.7 fL 35.1-43.9 [facility] Erythrocyte distribution width (RBC) [Ratio] 13.4 % 11.6-14.6 [facility] MCH (RBC) [Entitic mass] 27.5 pg 27.0-32.0 [facility] MCHC Auto (RBC) [Mass/Vol]Or dered By: Lambert Olvera on 03-20-2023 MCHC (RBC) [Mass/Vol] 29.9 g/dL 32-36 [facility] No Panel InformationOrdered By: Lambert Olvera on 03-20-2023 Estimated GFR (MDRD) Amer 70 mL/min >60 [facility] Comment on above: GFR Calc Estimated GFR (MDRD) Non-Af Amer 57 mL/min >60 [facility] Comment on above: Non- GFR Calc Thyroid Stimulating Hormone (TSH) 0.04 uIU/mL 0.358-3.74 [facility] Platelets bldOrdered By: Lisa Olvera on 03-20-2023 Platelets (Bld) [#/Vol] 333 10*3/uL 150-450 [facility] Serum or plasma calcium danae urement (mass/volume)Ordered By: Lambert Olvera on 03-20-2023 Calcium [Mass/Vol] 8.4 mg/dL 8.5-10.1 [facility] Serum or plasma creatinine m easurement (mass/volume)Ordered By: Lambert Olvera on 03-20-2023 Creatinine [Mass/Vol] 0.99 mg/dL 0.55-1.02 [facility] Comment on above: The validity of the calculated GFR & GFRAA in patients over 70 years has not been determined. Clinical correlation is essential. Serum or plasma urea nitroge n measurement (mass/volume)Ordered By: Lambert Olvera on 03-20-2023 Urea nitrogen [Mass/Vol] 24 mg/dL 7-18 [facility] Thin prep Papanicolaou smear with manual screeningOrdered By: Lambert Olvera on 03-20-2023 Thin prep Papanicolaou smear with manual screening 3 5-15 [facility] Absolute lymphocyte countOrd ered By: Baljit Jaffe on 03-18-2023 Lymphocytes Auto (Unsp spec) [#/Vol] 1.42 10*3/uL 0.83-4.51 [facility] Basophil percentageOrdered B y: Baljit Jaffe on 03-18-2023 Basophils/100 WBC (Bld) 0.6 % 0-1 [facility] Chloride [Moles/Vol] 106 mmol/L 98-107 [facility] Eosinophils/100 WBC (Bld) 5.2 % 0-5 [facility] Glucose [Mass/Vol] 111 mg/dL 74-106 [facility] Comment on above: Fasting Glucose resu lt from 100 to 125 mg/dL suggests IMPAIRED HOMEOSTASIS per A.D.A. criteria. Neutrophils (Bld) [#/Vol] 5.0 10*3/uL 2.0-7.7 [facility] Neutrophils/100 WBC (Bld) 65.0 % 47-70 [facility] Potassium [Moles/Vol] 3.7 mmol/L 3.5-5.1 [facility] Sodium [Moles/Vol] 138 mmol/L 136-145 [facility] WBC (Bld) [#/Vol] 7.8 10*3/uL 4.4-11.0 [facility] Blood erythrocytes count (nu mber/volume)Ordered By: Baljit Jaffe on 03-18-2023 RBC (Bld) [#/Vol] 3.84 10*6/uL 4.2-5.4 [facility] Blood hemoglobin measurement (mass/volume)Ordered By: Baljit Jaffe on 03-18-2023 Hemoglobin (Bld) [Mass/Vol] 10.8 g/dL 12.0-15.0 [facility] Blood lymphocytes/100 leukoc ytesOrdered By: Baljit Jaffe on 03-18-2023 Lymphocytes/100 WBC (Bld) 18.3 % 19-41 [facility] Blood monocytes/100 leukocyt esOrdered By: Baljit Jaffe on 03-18-2023 Monocytes/100 WBC (Bld) 10.6 % 0-10 [facility] Blood platelet mean volumeOr dered By: Baljit Jaffe on 03-18-2023 Platelet mean volume (Bld) [Entitic vol] 9.9 fL 6.2-12.0 [facility] Determination of erythrocyte mean corpuscular volume (MCV)Ordered By: Baljit Jaffe on 03-18-2023 MCV (RBC) [Entitic vol] 90.6 fL 81-99 [facility] Glucose Glucometer (BldC) [M ass/Vol]Ordered By: Baljit Jaffe on 03-18-2023 Glucose [Mass/Vol] 111 mg/dL 74-106 [facility] Comment on above: MANAGEMENT OF PATIEN T CARE PER NURSING PROTOCOL Hematocrit Auto (Bld) [Volum e fraction]Ordered By: Baljit Jaffe on 03-18-2023 Hematocrit (Bld) [Volume fraction] 34.8 % 37-47 [facility] Laboratory - Chemistry and C hemistry - challengeOrdered By: Baljit Jaffe on 03-18-2023 CO2 [Moles/Vol] 27.0 mmol/L 21.0-32.0 [facility] Urea nitrogen/Creatinine [Mass ratio] 30.8 mg/mg 10-20 [facility] Laboratory - Hematology and Cell countsOrdered By: Baljit Jaffe on 03-18-2023 Erythrocyte distribution width (RBC) [Entitic vol] 44.9 fL 35.1-43.9 [facility] Erythrocyte distribution width (RBC) [Ratio] 13.4 % 11.6-14.6 [facility] Immature granulocytes/100 WBC (Bld) 0.300 % 0.0-0.9 [facility] Comment on above: IG% - Immature Granu locytes (promyelocytes, myelocytes and metamyelocytes) > 1% indicates that a LEFT SHIFT is Present. MCH (RBC) [Entitic mass] 28.1 pg 27.0-32.0 [facility] Nucleated RBC/100 WBC (Bld) [Ratio] 0 % 0-5 [facility] MCHC Auto (RBC) [Mass/Vol]Or dered By: Baljit Jaffe on 03-18-2023 MCHC (RBC) [Mass/Vol] 31.0 g/dL 32-36 [facility] No Panel InformationOrdered By: Baljit Jaffe on 03-18-2023 Estimated Creatinine Clearance Calc 41.46 ml/min [facility] Estimated GFR (MDRD) Amer 64 mL/min >60 [facility] Comment on above: GFR Calc Estimated GFR (MDRD) Non-Af Amer 53 mL/min >60 [facility] Comment on above: Non- GFR Calc Platelets bldOrdered By: Baljit Jaffe on 03-18-2023 Platelets (Bld) [#/Vol] 333 10*3/uL 150-450 [facility] Serum or plasma calcium danae urement (mass/volume)Ordered By: Baljit Jaffe on 03-18-2023 Calcium [Mass/Vol] 8.4 mg/dL 8.5-10.1 [facility] Serum or plasma creatinine m easurement (mass/volume)Ordered By: Baljit Jaffe 03-18-2023 Creatinine [Mass/Vol] 1.07 mg/dL 0.55-1.02 [facility] Comment on above: The validity of the calculated GFR & GFRAA in patients over 70 years has not been determined. Clinical correlation is essential. Serum or plasma urea nitroge n measurement (mass/volume)Ordered By: Baljit Jaffe on 03-18-2023 Urea nitrogen [Mass/Vol] 33 mg/dL 7-18 [facility] Thin prep Papanicolaou smear with manual screeningOrdered By: Baljit Jaffe on 03-18-2023 Thin prep Papanicolaou smear with manual screening 5 5-15 [facility] COVID-19 virus antigen assay Ordered By: Baljit Jaffe on 03-17-2023 SARS-CoV-2 (COVID-19) Ag IA.rapid Ql (Resp) [facility] SARS-CoV-2 (COVID-19) Ag IA.rapid Ql (Resp) [facility] Gram stain for investigation of transfusion reactionOrdered By: Baljit Jaffe on 03-17-2023 Microscopic observation Gram stain Nom (Unsp spec) [facility] Microscopic observation Gram stain Nom (Unsp spec) [facility] Routine wound cultureOrdered By: Baljit Jaffe on 03-17-2023 Bacteria identified Cx Nom (Wound) No growth aerobically. [facility] Bacteria identified Cx Nom (Wound) No growth aerobically. [facility] 36on 03-15-2023 36 Sent via [employer]. [facility] 36 Name of caller: [facility] bert [facility] Contact phone number: [phone] Relationship to Patient: [facility] Provider: Dr Lopez Practice: [facility] [place] location Chief Complaint/Reason for Call: 03/15/23 Margaret calling to ask the office /provider about her Immunization Records she stated pt received Pneumococcal 23 on 04/10/21 but she is asking if anymore was given to pt if so, she will need those records faxed over to [phone] pls advise Best time of day caller can be reached: AM Patient advised that office/PCP has 24-48 business hours to return their call: Yes [facility] CARECOORDon 03-06-2023 CARECOORD Patient Choice Patient Name: RADHA SANDOVAL Date of : [address] [facility] Bacteria identified Cx Nom ( U)Ordered By: Kalpesh Dillon on 03-03-2023 Interpretation and review of laboratory results Abnormal [facility] CARECOORDon 03-03-2023 CAR[place]OORD Discharge med list transmitted to [facility] via [employer] per TCC request. [facility] Spoke with pt at bedside regarding POA, pt states she is not interested at this time to complete it and would consider completing at [place] - did call Rafaela at [place] to update her as well. [facility] Transportation arran ged through [facility] by cot set for 10 am bead picker. Will notify RN and TCC of this in rounds. Notified patient's son via phone of transportation time. SW remains available if any other needs concerns arise. [facility] You are not granted access to view this sensitive note. [facility] Insurance auth davide merritt for [facility] longterm facility, updated Dr Finch notified via Cover[employer] Chat. Normal [facility] CBC W Auto Differential pane l (Bld)on 03-03-2023 Basophils (Bld) [#/Vol] 0.1 10*3/uL 0.0 - 0.2 10*3/uL [facility] Basophils/100 WBC (Bld) 0.6 % 0.0 - 2.0 % [facility] Eosinophils (Bld) [#/Vol] 0.4 10*3/uL 0.0 - 0.5 10*3/uL [facility] Eosinophils/100 WBC (Bld) 4.4 % 1.0 - 6.0 % [facility] Erythrocyte distribution width (RBC) [Ratio] 13.4 % 11.5 - 14.5 % [facility] Hematocrit (Bld) [Volume fraction] 35.5 % 35.0 - 47.0 % [facility] Hemoglobin (Bld) [Mass/Vol] 11.6 g/dL Low 11.7 - 16.0 g/dL [facility] Interpretation and review of laboratory results Abnormal [facility] Lymphocytes (Bld) [#/Vol] 2.0 10*3/uL 1.0 - 4.3 10*3/uL [facility] Lymphocytes/100 WBC (Bld) 22.6 % 20.0 - 40.0 % [facility] MCH (RBC) [Entitic mass] 27.7 pg 26.0 - 34.0 pg [facility] MCHC (RBC) [Mass/Vol] 32.7 % 32.0 - 36.0 % [facility] MCV (RBC) [Entitic vol] 84.8 fL 80.0 - 98.0 fL [facility] Monocytes (Bld) [#/Vol] 1.0 10*3/uL High 0.0 - 0.8 10*3/uL [facility] Monocytes/100 WBC (Bld) 11.6 % High 2.0 - 10.0 % [facility] Neutrophils (Bld) [#/Vol] 5.4 10*3/uL 1.8 - 7.0 10*3/uL [facility] Neutrophils/100 WBC (Bld) 60.8 % 40.0 - 80.0 % [facility] Nucleated RBC/100 WBC (Bld) [Ratio] 0.0 % [facility] Platelet mean volume (Bld) [Entitic vol] 7.9 fL 7.4 - 12.4 fL [facility] Platelets (Bld) [#/Vol] 257 10*3/uL 140 - 440 10*3/uL [facility] RBC (Bld) [#/Vol] 4.19 10*6/uL 3.8 - 5.20 10*6/uL [facility] WBC (Bld) [#/Vol] 9.0 10*3/uL 3.6 - 10.7 10*3/uL [facility] CBC WITH AUTO DIFFERENTIALon 03-03-2023 Basophils (Bld) [#/Vol] 0.1 10*3/uL Normal 0.0-0.2 [facility] Comment on above: Performed By: #### L [id number] ####[employer] Lathe Operator: MARTIN REYES ([id number])[facility] ([facility])[address] [place] [address] Basophils/100 WBC (Bld) 0.6 % Normal 0.0-2.0 [facility] Comment on above: Performed By: #### L [id number] ####[employer] Lathe Operator: MARTIN AMBROSEJOSE R ([id number])[facility] [place] ([facility])[address] Eosinophils (Bld) [#/Vol] 0.4 10*3/uL Normal 0.0-0.5 [facility] Comment on above: Performed By: #### L [id number] ####[employer] Lathe Operator: MARTIN AMBROSEJOSE R ([phone])[facility] [place] ([facility])[address] Eosinophils/100 WBC (Bld) 4.4 % Normal 1.0-6.0 [facility] Comment on above: Performed By: #### L [id number] ####[employer] Lathe Operator: MARTIN ERIC ([id number])[facility] [place] [facility] [place] [address] Erythrocyte distribution width (RBC) [Ratio] 13.4 % Normal 11.5-14.5 [facility] Comment on above: Performed By: #### L [id number] ####[employer] Lathe Operator: MARTIN REYES ([phone])[facility] [place] [address] ERYTHROCYTE MEAN CORPUSCULAR HEMOGLOBIN CONCENTRATION (G/DL) BY AUTOMATED 32.7 % Normal 32.0-36.0 [facility] Comment on above: Performed By: #### L [id number] ####[employer] Lathe Operator: MARTIN REYES ([id number])[facility] [place] ([facility])[address] [place] [address] Hematocrit (Bld) [Volume fraction] 35.5 % Normal 35.0-47.0 [facility] Comment on above: Performed By: #### L [id number] ####[employer] Operator: MARTIN AMBROSEJOSE R ([id number])[facility] [place] ([facility])[address] [place] [address] Hemoglobin (Bld) [Mass/Vol] 11.6 g/dL Low 11.7-16.0 [facility] Comment on above: Performed By: #### L [id number] ####[employer] Lathe Operator: MARTIN REYES ([id number])[facility] [place] ([facility]AB)[address] [place] [address] Lymphocytes (Bld) [#/Vol] 2.0 10*3/uL Normal 1.0-4.3 [facility] Comment on above: Performed By: #### L [id number] ####[employer] L[employer] Operator: MARTIN REYES ([id number])[facility] [place] ([facility])[address] Lymphocytes/100 WBC (Bld) 22.6 % Normal 20.0-40.0 [facility] Comment on above: Performed By: #### L [id number] ####[employer] L[employer] Operator: MARTIN REYES ([id number])[facility] [place] ([facility])[address] [place] [address] MCH (RBC) [Entitic mass] 27.7 pg Normal 26.0-34.0 [facility] Comment on above: Performed By: #### L [id number] ####[employer] L[employer] Operator: MARTIN REYES ([id number])[facility] [place] ([facility])[address] [place] [address] MCV (RBC) [Entitic vol] 84.8 fL Normal 80.0-98.0 [facility] Comment on above: Performed By: #### L [id number] ####[employer] L[employer] Operator: MARTIN REYES ([id number])[facility] [place] ([facility])[address] [place] [address] Monocytes (Bld) [#/Vol] 1.0 10*3/uL High 0.0-0.8 [facility] Comment on above: Performed By: #### L [id number] ####[employer] L[employer] Operator: MARTIN REYES ([id number])[facility] [place] ([facility])[address] Monocytes/100 WBC (Bld) 11.6 % High 2.0-10.0 [facility] Comment on above: Performed By: #### L [id number] ####[employer] Lathe Operator: MARTIN REYES ([id number])[facility] [place] ([facility])[address] Neutrophils (Bld) [#/Vol] 5.4 10*3/uL Normal 1.8-7.0 [facility] Comment on above: Performed By: #### L [id number] ####[employer] Lathe Operator: MARTIN REYES ([phone])[facility] [place] ([facility])[address] Neutrophils/100 WBC (Bld) 60.8 % Normal 40.0-80.0 [facility] Comment on above: Performed By: #### L [id number] ####[employer] Lathe Operator: MARTIN REYES ([id number])[facility] [place] ([facility])[address] NRBC (PER 100 WBCS) BY AUTOMATED COUNT 0.0 /100 WBCs Normal 0.0-2.0 [facility] Comment on above: Performed By: #### L [id number] ####[employer] Lathe Operator: MARTIN REYES ([id number])[facility] [place] ([facility])[address] Platelet mean volume (Bld) [Entitic vol] 7.9 fL Normal 7.4-12.4 [facility] Comment on above: Performed By: #### L [id number] ####[employer] Lathe Operator: MARTIN REYES ([id number])[facility] [place] ([facility])[address] [place] [address] [place] PLATELETS (10*3/UL) IN BLOOD AUTOMATED COUNT 257 10*3/uL Normal 140-440 [facility] Comment on above: Performed By: #### L [id number] ####[employer] Lathe Operator: MARTIN REYES ([id number])[facility] [place] ([facility])[address] [place] [address] [place] RBC (Bld) [#/Vol] 4.19 10*6/uL Normal 3.8-5.20 [facility] Comment on above: Performed By: #### L [id number] ####[employer] Lathe Operator: MARTIN REYES ([id number])[facility] [place] ([facility])[address] WBC (Bld) [#/Vol] 9.0 10*3/uL Normal 3.6-10.7 [facility] Comment on above: Performed By: #### L [id number] ####[employer] Lathe Operator: MARTIN REYES ([id number])[facility] [place] ([facility])[address] COMPREHENSIVE METABOLIC PANE Real 03-03-2023 Albumin [Mass/Vol] 3.2 g/dL Low 3.5-5.0 [facility] Comment on above: Performed By: #### L [id number] ####[employer] Lathe Operator: MARTIN REYES ([id number])[facility] [place] ([facility])[address] ALP [Catalytic activity/Vol] 94 U/L Normal 38-126 [facility] Comment on above: Performed By: #### L [id number] ####[employer] Lathe Operator: MARTIN REYES ([id number])[facility] [place] ([facility])[address] ALT [Catalytic activity/Vol] 12 U/L Normal 0-34 [facility] Comment on above: Performed By: #### L [id number] ####[employer] Lathe Operator: MARTIN REYES ([id number])[facility] [place] ([facility])[address] Anion gap [Moles/Vol] 2 mmol/L Low 3-13 [facility] Comment on above: Performed By: #### L [id number] ####[employer] Lathe Operator: MARTIN REYES ([id number])[facility] [place] ([facility])[address] [place] [address] [place] AST [Catalytic activity/Vol] 34 U/L Normal 15-46 [facility] Comment on above: Performed By: #### L [id number] ####[employer] Lathe Operator: MARTIN REYES ([id number])[facility] [place] ([facility])[address] Bilirubin [Mass/Vol] 0.3 mg/dL Normal 0.2-1.3 [facility] Comment on above: Performed By: #### L [id number] ####[employer] Lathe Operator: MARTIN REYES ([id number])[facility] ([facility])[address] Calcium [Mass/Vol] 8.1 mg/dL Low 8.4-10.4 [facility] Comment on above: Performed By: #### L [id number] ####[employer] Lathe Operator: MARTIN REYES ([id number])[facility] ([facility])[address] [place] [address] [place] Chloride [Moles/Vol] 102 mmol/L Normal 98-107 [facility] Comment on above: Performed By: #### L [id number] ####[employer] Lathe Operator: MARTIN REYES ([id number])[facility] ([facility])[address] [place] [address] [place] CO2 [Moles/Vol] 30 mmol/L Normal 22-30 [facility] Comment on above: Performed By: #### L [id number] ####[employer] Lathe Operator: MARTIN REYES ([id number])[facility] [place] ([facility])[address] [place] [address] [place] Creatinine [Mass/Vol] 0.82 mg/dL Normal 0.52-1.04 [facility] Comment on above: Performed By: #### L [id number] ####[employer] Lathe Operator: MARTIN REYES ([id number])[facility] ([facility])[address] [place] [address] [place] GLOMERULAR FILTRATION RATE ML/MIN/1.73 SQ M.PREDICTED 72.9 mL/min/1.73m*2 Normal >60.0 [facility] Comment on above: Result Comment: Calc ulation based on the Chronic Kidney Disease Epidemiology Collaboration (CKD-EPI) equation refit without adjustment for race Performed By: #### L [id number] ####[employer] Lathe Operator: MARTIN REYES ([id number])[facility] ([facility])[address] [address] Glucose [Mass/Vol] 125 mg/dL High 70-100 [facility] Comment on above: Performed By: #### L AB17 ####Cnc Wood Lathe Operator: MARTIN REYES ([phone])[facility] [place] (SBHLAB)[address] Potassium [Moles/Vol] 3.7 mmol/L Normal 3.5-5.1 [facility] Comment on above: Performed By: #### L AB17 ####Cnc Wood Lathe Operator: MARTIN REYES ([phone])[facility] [place] (SBHLAB)[address] Protein [Mass/Vol] 6.2 g/dL Low 6.3-8.2 [facility] Comment on above: Performed By: #### L AB17 ####Cnc Wood Lathe Operator: MARTIN REYES ([phone])[facility] [place] (SBHLAB)[address] Sodium [Moles/Vol] 134 mmol/L Low 135-145 [facility] Comment on above: Performed By: #### L AB17 ####Cnc Wood Lathe Operator: MARTIN REYES ([phone])[facility] [place] (SBHLAB)[address] Urea nitrogen [Mass/Vol] 15 mg/dL Normal 7-17 [facility] Comment on above: Performed By: #### L AB17 ####Cnc Wood Lathe Operator: MARTIN REYES ([phone])[facility] [place] (SB[facility]AB)[address] Comprehensive metabolic 1998 panelon 03-03-2023 Albumin [Mass/Vol] 3.2 g/dL Low 3.5 - 5.0 g/dL [facility] ALP [Catalytic activity/Vol] 94 U/L 38 - 126 U/L [facility] ALT [Catalytic activity/Vol] 12 U/L 0 - 34 U/L [facility] Anion gap [Moles/Vol] 2 mmol/L Low 3 - 13 mmol/L [facility] AST [Catalytic activity/Vol] 34 U/L 15 - 46 U/L [facility] Bilirubin [Mass/Vol] 0.3 mg/dL 0.2 - 1 .3 mg/dL [facility] Calcium [Mass/Vol] 8.1 mg/dL Low 8.4 - 10. 4 mg/dL [facility] Chloride [Moles/Vol] 102 mmol/L 98 - 10 7 mmol/L [facility] CO2 [Moles/Vol] 30 mmol/L 22 - 30 mmol/L [facility] Creatinine [Mass/Vol] 0.82 mg/dL 0.52 - 1.04 mg/dL [facility] GFR/1.73 sq M.predicted MDRD (S/P/Bld) [Vol rate/Area] 72.9 mL/min/{1.73_m2} - PINF [facility] Comment on above: Calculation based on the Chronic Kidney Disease Epidemiology Collaboration (CKD-EPI) equation refit without adjustment for race Glucose [Mass/Vol] 125 mg/dL High 70 - 100 mg/dL [facility] Interpretation and review of laboratory results Abnormal [facility] Potassium [Moles/Vol] 3.7 mmol/L 3.5 - 5.1 mmol/L [facility] Protein [Mass/Vol] 6.2 g/dL Low 6.3 - 8.2 g/dL [facility] Sodium [Moles/Vol] 134 mmol/L Low 135 - 145 mmol/L [facility] Urea nitrogen [Mass/Vol] 15 mg/dL 7 - 17 mg/dL [facility] POCT glucose meteron 023 Glucose [Mass/Vol] 215 mg/dL High 70 - 100 mg/dL [facility] Interpretation and review of laboratory results Abnormal [facility] Performed by: [facility], [address] [place] [id number] CLIA ID: [id number] [facility] Glucose [Mass/Vol] 158 mg/dL High 70 - 100 mg/dL [facility] Interpretation and review of laboratory results Abnormal [facility] Performed by: [facility], [address], [place] [address] CLIA ID: [id number] [facility] Progress Noteon 03-03-2023 Progress Note Discharged via ambulance to [facility] Normal [facility] Progress Note Report called to carolina garcia at [facility] at [phone] Normal [facility] Urine cultureOrdered By: Sanford Dillon on 03-03-2023 Bacteria identified Cx Nom (U) >100,000 CFU/mL Escherichia coli Abnormal [facility] 25-hydroxyvitamin D3 [Mass/V ol]on 03-02-2023 Therapy is based on measurement of Total 25-OHD with the following classification levels: Less than 20 ng/mL: Indicative of Vit D deficiency 20-30 ng/mL: Suggests Vit D insufficiency Optimal: Greater than or equal to 30 ng/mL Test performed by [employer] Immuno[employer], measuring Total Vitamin D, not individual fractions. [facility] CARECOORDon 03-02-2023 CARECOORD Received a call from Rafaela at [facility], they are able to accept, pt agreeable. 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 at this time Normal [facility] CBC W Auto Differential pane l (Bld)Ordered By: Wendy Bruce on 03-02-2023 Basophils (Bld) [#/Vol] 0.1 10*3/uL 0.0 - 0.2 10*3/uL [facility] Basophils/100 WBC (Bld) 0.7 % 0.0 - 2.0 % [facility] Eosinophils (Bld) [#/Vol] 0.4 10*3/uL 0.0 - 0.5 10*3/uL [facility] Eosinophils/100 WBC (Bld) 3.9 % 1.0 - 6.0 % [facility] Erythrocyte distribution width (RBC) [Ratio] 13.7 % 11.5 - 14.5 % [facility] Hematocrit (Bld) [Volume fraction] 36.1 % 35.0 - 47.0 % [facility] Hemoglobin (Bld) [Mass/Vol] 11.9 g/dL 11.7 - 16.0 g/dL [facility] Interpretation and review of laboratory results Abnormal [facility] Lymphocytes (Bld) [#/Vol] 1.9 10*3/uL 1.0 - 4.3 10*3/uL [facility] Lymphocytes/100 WBC (Bld) 20.1 % 20.0 - 40.0 % [facility] MCH (RBC) [Entitic mass] 28.5 pg 26.0 - 34.0 pg [facility] MCHC (RBC) [Mass/Vol] 32.8 % 32.0 - 36.0 % [facility] MCV (RBC) [Entitic vol] 86.8 fL 80.0 - 98.0 fL [facility] Monocytes (Bld) [#/Vol] 1.1 10*3/uL High 0.0 - 0.8 10*3/uL [facility] Monocytes/100 WBC (Bld) 11.4 % High 2.0 - 10.0 % [facility] Neutrophils (Bld) [#/Vol] 6.1 10*3/uL 1.8 - 7.0 10*3/uL [facility] Neutrophils/100 WBC (Bld) 63.9 % 40.0 - 80.0 % [facility] Nucleated RBC/100 WBC (Bld) [Ratio] 0.1 % [facility] Platelet mean volume (Bld) [Entitic vol] 8.4 fL 7.4 - 12.4 fL [facility] Platelets (Bld) [#/Vol] 252 10*3/uL 140 - 440 10*3/uL [facility] RBC (Bld) [#/Vol] 4.16 10*6/uL 3.8 - 5.20 10*6/uL [facility] WBC (Bld) [#/Vol] 9.5 10*3/uL 3.6 - 10.7 10*3/uL [facility] CBC WITH AUTO DIFFERENTIALon 03-02-2023 Basophils (Bld) [#/Vol] 0.1 10*3/uL Normal 0.0-0.2 [facility] Comment on above: Performed By: #### L [id number] ####Cnc Wood Lathe Operator: MARTIN REYES ([phone])[facility] [place] (SBHLAB)[address] Basophils/100 WBC (Bld) 0.7 % Normal 0.0-2.0 [facility] Comment on above: Performed By: #### L [id number] ####Cnc Wood Lathe Operator: MARTIN REYES ([phone])[facility] [place] (SBHLAB)[address] Eosinophils (Bld) [#/Vol] 0.4 10*3/uL Normal 0.0-0.5 [facility] Comment on above: Performed By: #### L [id number] ####Cnc Wood Lathe Operator: MARTIN REYES ([id number])[facility] [place] (SB[facility])[address] Eosinophils/100 WBC (Bld) 3.9 % Normal 1.0-6.0 [facility] Comment on above: Performed By: #### L [id number] ####Cnc Wood Lathe Operator: MARTIN REYES ([id number])[facility] [place] (SBHLAB)[address] [place] [address] Erythrocyte distribution width (RBC) [Ratio] 13.7 % Normal 11.5-14.5 [facility] Comment on above: Performed By: #### L [id number] ####Cnc Wood Lathe Operator: MARTIN REYES ([id number])[facility] [place] (SBHLAB)[address] [place] [address] ERYTHROCYTE MEAN CORPUSCULAR HEMOGLOBIN CONCENTRATION (G/DL) BY AUTOMATED 32.8 % Normal 32.0-36.0 [facility] Comment on above: Performed By: #### L [id number] ####Cnc Wood Lathe Operator: MARTIN REYES ([phone])[facility] [place] (SBHLAB)[address] Hematocrit (Bld) [Volume fraction] 36.1 % Normal 35.0-47.0 [facility] Comment on above: Performed By: #### L [id number] ####Cnc Wood Lathe Operator: MARTIN [id number])[facility] [place] (SBHLAB)[address] [place] [address] Hemoglobin (Bld) [Mass/Vol] 11.9 g/dL Normal 11.7-16.0 [facility] Comment on above: Performed By: #### L [id number] ####Cnc Wood Lathe Operator: MARTINDWAINE REYES ([phone])[facility] [place] (SBHLAB)[address] Lymphocytes (Bld) [#/Vol] 1.9 10*3/uL Normal 1.0-4.3 [facility] Comment on above: Performed By: #### L [id number] ####Cnc Wood Lathe Operator: MARTIN ERIC ([phone])[facility] [place] [facility] [place] [address] Lymphocytes/100 WBC (Bld) 20.1 % Normal 20.0-40.0 [facility] Comment on above: Performed By: #### L [id number] ####Cnc Wood Lathe Operator: MARTIN ERIC ([phone])[facility] [place] ([facility] [place] [address] MCH (RBC) [Entitic mass] 28.5 pg Normal 26.0-34.0 [facility] Comment on above: Performed By: #### L [id number] ####Cnc Wood Lathe Operator: MARTIN AMBROSEJOSE R ([id number])[facility] [place] [address] MCV (RBC) [Entitic vol] 86.8 fL Normal 80.0-98.0 S [facility] Comment on above: Performed By: #### L [id number] ####Cnc Wood Lathe Operator: MARTIN ERIC ([phone])[facility] [place] ([facility])[address] [place] [address] Monocytes (Bld) [#/Vol] 1.1 10*3/uL High 0.0-0.8 [facility] Comment on above: Performed By: #### L [id number] ####Cnc Wood Lathe Operator: MARTIN HUANateJOSE R ([phone])[facility] [place] (SBHLAB)[address] Monocytes/100 WBC (Bld) 11.4 % High 2.0-10.0 [facility] Comment on above: Performed By: #### L [id number] ####Cnc Wood Lathe Operator: MARTIN HUAWILFREDO ([id number])[facility] [place] (SB[facility]AB)[address] Neutrophils (Bld) [#/Vol] 6.1 10*3/uL Normal 1.8-7.0 [facility] Comment on above: Performed By: #### L [id number] ####Cnc Wood Lathe Operator: MARTIN ERIC ([phone])[facility] [place] (SB[facility]AB)[address] Neutrophils/100 WBC (Bld) 63.9 % Normal 40.0-80.0 [facility] Comment on above: Performed By: #### L [id number] ####Cnc Wood Lathe Operator: MARTIN ERIC ([id number])[facility] [place] (SBHLAB)[address] NRBC (PER 100 WBCS) BY AUTOMATED COUNT 0.1 /100 WBCs Normal 0.0-2.0 [facility] Comment on above: Performed By: #### L [id number] ####Cnc Wood Lathe Operator: MARTIN AMBROSEJOSE R ([phone])[facility] [place] (SB[facility]AB)[address] Platelet mean volume (Bld) [Entitic vol] 8.4 fL Normal 7.4-12.4 [facility] Comment on above: Performed By: #### L [id number] ####Cnc Wood Lathe Operator: MARTIN AMBROSEJOSE R ([phone])[facility] [place] (SBHLAB)[address] [place] [address] [place] PLATELETS (10*3/UL) IN BLOOD AUTOMATED COUNT 252 10*3/uL Normal 140-440 [facility] Comment on above: Performed By: #### L [id number] ####Cnc Wood Lathe Operator: MARTIN REYES ([phone])[facility] [place] (SBHLAB)[address] RBC (Bld) [#/Vol] 4.16 10*6/uL Normal 3.8-5.20 [facility] Comment on above: Performed By: #### L [id number] ####Cnc Wood Lathe Operator: MARTIN REYES ([id number])[facility] [place] (SB[facility]AB)[address] WBC (Bld) [#/Vol] 9.5 10*3/uL Normal 3.6-10.7 [facility] Comment on above: Performed By: #### L [id number] ####Cnc Wood Lathe Operator: MARTIN REYES ([phone])[facility] (SBHLAB)[address] COMPREHENSIVE METABOLIC PANE Real 03-02-2023 Albumin [Mass/Vol] 3.1 g/dL Low 3.5-5.0 [facility] Comment on above: Performed By: #### Eduardo TEAGUE, LAB17, [id number] ####Cnc Wood Lathe Operator: MARTIN REYES ([phone])[facility] [place] (SBHLAB)[address] ALP [Catalytic activity/Vol] 100 U/L Normal 38-126 [facility] Comment on above: Performed By: #### Eduardo TEAGUE, LAB17, [id number] ####Cnc Wood Lathe Operator: MARTIN REYES ([phone])[facility] [place] (SB[facility]AB)[address] ALT [Catalytic activity/Vol] 13 U/L Normal 0-34 [facility] Comment on above: Performed By: #### Eduardo TEAGUE, LAB17, [id number] ####Cnc Wood Lathe Operator: MARTIN REYES ([id number])[facility] (SBHLAB)[address] Anion gap [Moles/Vol] 3 mmol/L Normal 3-13 [facility] Comment on above: Performed By: #### Eduardo TEAGUE, LAB17, [id number] ####Cnc Wood Lathe Operator: MARTIN REYES ([phone])[facility] [place] (SB[facility])[address] AST [Catalytic activity/Vol] 22 U/L Normal 15-46 [facility] Comment on above: Performed By: #### Eduardo TEAGUE, LAB17, [id number] ####Cnc Wood Lathe Operator: MARTIN REYES ([phone])[facility] [place] (SB[facility])[address] Bilirubin [Mass/Vol] 0.4 mg/dL Normal 0.2-1.3 [facility] Comment on above: Performed By: #### Eduardo TEAGUE, LAB17, [id number] ####Cnc Wood Lathe Operator: MARTIN REYES ([phone])[facility] [place] (SB[facility]AB)[address] Calcium [Mass/Vol] 8.4 mg/dL Normal 8.4-10.4 [facility] Comment on above: Performed By: #### Eduardo TEAGUE, LAB17, [id number] ####Cnc Wood Lathe Operator: MARTIN REYES ([phone])[facility] [place] (SB[facility])[address] Chloride [Moles/Vol] 105 mmol/L Normal 98-107 [facility] Comment on above: Performed By: #### Eduardo TEAGUE, LAB17, [id number] ####Cnc Wood Lathe Operator: MARTIN REYES ([id number])[facility] [place] (SBHLAB)[address] [place] [address] [place] CO2 [Moles/Vol] 27 mmol/L Normal 22-30 [facility] Comment on above: Performed By: #### Eduardo ABUmberto, LAB17, [id number] ####Cnc Wood Lathe Operator: MARTIN REYES ([id number])[facility] [place] (SB[facility])[address] Creatinine [Mass/Vol] 0.77 mg/dL Normal 0.52-1.04 [facility] Comment on above: Performed By: #### Eduardo TEAGUE, LAB17, [id number] ####Cnc Wood Lathe Operator: MARTIN REYES ([phone])[facility]ENTER[facility] CENTERBret (SBHLAB)[address] GLOMERULAR FILTRATION RATE ML/MIN/1.73 SQ M.PREDICTED 78.6 mL/min/1.73m*2 Normal >60.0 [facility] Comment on above: Result Comment: Calc ulation based on the Chronic Kidney Disease Epidemiology Collaboration (CKD-EPI) equation refit without adjustment for race Performed By: #### Eduardo TEAGUE, LAB17, [id number] ####Cnc Wood Lathe Operator: MARTIN REYES ([phone])[facility] (SBHLAB)[address] Glucose [Mass/Vol] 97 mg/dL Normal 70-100 [facility] Comment on above: Performed By: #### Eduardo TEAGUE, LAB17, [id number] ####Cnc Wood Lathe Operator: MARTIN REYES ([id number])[facility] [place] (SBHLAB)[address] Potassium [Moles/Vol] 4.1 mmol/L Normal 3.5-5.1 [facility] Comment on above: Performed By: #### Eduardo TEAGUE, LAB17, [id number] ####Cnc Wood Lathe Operator: MARTIN REYES ([phone])[facility] (SBHLAB)[address] [place] [address] [place] Protein [Mass/Vol] 5.8 g/dL Low 6.3-8.2 [facility] Comment on above: Performed By: #### Eduardo TEAGUE, LAB17, [id number] ####Cnc Wood Lathe Operator: MARTIN REYES ([phone])[facility] (SBHLAB)[address] [place] [address] [place] Sodium [Moles/Vol] 135 mmol/L Normal 135-145 [facility] Comment on above: Performed By: #### L AB127, LAB17, ZTY694 ####Cnc Wood Lathe Operator: MARTIN REYES ([phone])[facility] (SBHLAB)[address] Urea nitrogen [Mass/Vol] 15 mg/dL Normal 7-17 [facility] Comment on above: Performed By: #### L AB127, LAB17, [id number] ####Cnc Wood Lathe Operator: MARITN FLEMINGCER ([phone])[facility] (SBHLAB)[address] Comprehensive metabolic 1998 panelon 03-02-2023 Albumin [Mass/Vol] 3.1 g/dL Low 3.5 - 5.0 g/dL [facility] ALP [Catalytic activity/Vol] 100 U/L 38 - 126 U/L [facility] ALT [Catalytic activity/Vol] 13 U/L 0 - 34 U/L [facility] Anion gap [Moles/Vol] 3 mmol/L 3 - 13 mmol/L [facility] AST [Catalytic activity/Vol] 22 U/L 15 - 46 U/L [facility] Bilirubin [Mass/Vol] 0.4 mg/dL 0.2 - 1 .3 mg/dL [facility] Calcium [Mass/Vol] 8.4 mg/dL 8.4 - 10. 4 mg/dL [facility] Chloride [Moles/Vol] 105 mmol/L 98 - 10 7 mmol/L [facility] CO2 [Moles/Vol] 27 mmol/L 22 - 30 mmol/L [facility] Creatinine [Mass/Vol] 0.77 mg/dL 0.52 - 1.04 mg/dL [facility] GFR/1.73 sq M.predicted MDRD (S/P/Bld) [Vol rate/Area] 78.6 mL/min/{1.73_m2} - PINF [facility] Comment on above: Calculation based on the Chronic Kidney Disease Epidemiology Collaboration (CKD-EPI) equation refit without adjustment for race Glucose [Mass/Vol] 97 mg/dL 70 - 100 mg/dL [facility] Interpretation and review of laboratory results Abnormal [facility] Potassium [Moles/Vol] 4.1 mmol/L 3.5 - 5.1 mmol/L [facility] Protein [Mass/Vol] 5.8 g/dL Low 6.3 - 8.2 g/dL [facility] Sodium [Moles/Vol] 135 mmol/L 135 - 145 mmol/L [facility] Urea nitrogen [Mass/Vol] 15 mg/dL 7 - 17 mg/dL [facility] FREE T4on 03-02-2023 Free T4 [Mass/Vol] 3.28 ng/dL High 0.78-2.19 [facility] Comment on above: Performed By: #### L AB127, LAB17, [id number] ####Cnc Wood Lathe Operator: MARTIN REYES ([phone])[facility] [place] (SBHLAB)[address] [place] [address] Free T4 [Mass/Vol]on 023 Free T4 Dialysis [Mass/Vol] 3.28 ng/dL High 0.78 - 2.19 ng/dL [facility] No Panel Informationon 03-02 Interpretation and review of laboratory results Abnormal [facility] POCT glucose meteron 023 Glucose [Mass/Vol] 175 mg/dL High 70 - 100 mg/dL [facility] Interpretation and review of laboratory results Abnormal [facility] Performed by: [facility], [address] [place] [address] CLIA ID: [id number] [facility] Glucose [Mass/Vol] 214 mg/dL High 70 - 100 mg/dL [facility] Interpretation and review of laboratory results Abnormal [facility] Performed by: [facility], [address] [place] [address] CLIA ID: [id number] [facility] Glucose [Mass/Vol] 141 mg/dL High 70 - 100 mg/dL [facility] Interpretation and review of laboratory results Abnormal [facility] Performed by: [facility], [address] [place] [address] CLIA ID: [id number] [facility] Progress Noteon 03-02-2023 Progress Note Department of [employer] And [employer] Equipment Repairer al Medicine Division of Endocrinology, Diabetes, & Metabolism Endocrinology Note Patient Name: Radha Sandoval : 1945 AGE: 77 y.o. Room/Bed: [facility]/[address] Admission Date: 02/28/2023 Visit Date: 03/02/2023 Reason for Endocrine Consult: DM-Uncontrolled Provider/Team Requesting Consult: Dr. Finch PCP: Shiv Lopez MD Outpt Rehab Care Assistant: No ASSESSMENT: Type II diabetes with hyperglycemia, with intermediate manager insulin use Postoperative hypothyroidism Patient admitted for [...] daily before breakfast Patient to discharge to [facility] Outpt Follow Up-- PCP SUBJECTIVE/HPI: CHIEF [...] diagnosis. She has been having diarrhea in [id number], smt severe Glimepiride- started in 2015 Trulicity [...] Physical Exam Vitals and nursing note reviewed. Constituti (more content not included)... Normal [facility] Progress Note Occupational Therapy OCCUPATIONAL THERAPY [facility] Treatment Note Name/MRN: Radha Sandoval ([id number]) Date of : 1945 Age: 77 y.o. Room[facility]Bed: [facility]153/[facility] A Visit #: 1 out of 7 [...] chronic pain from previous shoulder surgery. Pt demo's approx 60 degrees shoulder flexion, RUE [...] to rehab service department Occupational Therapist Normal [facility] Progress Note [facility] Geriatric Medicine Inpatient Consult Service Admission Date: 02/28/2023 Assessment Principal Problem: LING (acute kidney injury) (CMS/HCC) ([facility]) Active Problems: Declining functional status Weakness Anxiety Polypharmacy DNR (do not resuscitate) Insomnia Plan Declining functional status -Related to physical deconditioning, UTI, advanced age, diabetes type 2 -Continue PT/OT as able while inpatient -Anticipate d/c to SNF for ongoing daily PT/OT, patient agreeable to go to [facility] Fall Weakness -Multiple risk factors including weakness, [...] you Subjective Chief Complaint: low back pain/dysuria/polyuria/w [facility] Geriatrics consulted for "functional decline" HPI- The patient is new to me [...] contact guard. Ambulated 30 ft x2. Recommending longterm facility . Review of Systems Constitutional: Negative [...] 2 pu (more content not included)... Normal [facility] Progress Note Nutrition rescreen completed. Pt referred to RD for uncontrolled DM, and nutrition supplement per Wound Care. Normal [facility] VITAMIN D DEFICIENCY SCREENI NG (VIT D 25)on 03-02-2023 VIT D 25-OH, TOTAL 17 ng/mL Low 30-100 [facility] Comment on above: Result Comment: LISA Mejia COMMENTS: Therapy is based on measurement of Total 25-OHD with the following classification levels: Less than 20 ng/mL: Indicative of Vit D deficiency 20-30 ng/mL: Suggests Vit D insufficiency Optimal: Greater than or equal to 30 ng/mL Test performed by [employer] Immunoassay, measuring Total Vitamin D, not individual fractions. Performed By: #### L AB127, LAB17, [id number] ####Cnc Wood Lathe Operator: MARTIN REYES ([phone])[facility] ([facility])[address] [place] [address] Vitamin D Deficiency Screeni ng (Vit D 25)on 03-02-2023 25-hydroxyvitamin D3 [Mass/Vol] 17 ng/mL Low 30 - 100 ng/mL [facility] [id number] 03-01-2023 [id number] [employer] Manager following case for Discharge Needs. Therapy states SNF, but Patient wants HC instead. 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 SCHMIDT liaison following, TCC to assist and follow as needed. Laura Jackson RN Normal [facility] CBC W Auto Differential pane l (Bld)Ordered By: Rosey Viera on 03-01-2023 Basophils (Bld) [#/Vol] 0.1 10*3/uL 0.0 - 0.2 10*3/uL [facility] Basophils/100 WBC (Bld) 0.6 % 0.0 - 2.0 % [facility] Eosinophils (Bld) [#/Vol] 0.2 10*3/uL 0.0 - 0.5 10*3/uL [facility] Eosinophils/100 WBC (Bld) 1.4 % 1.0 - 6.0 % [facility] Erythrocyte distribution width (RBC) [Ratio] 13.6 % 11.5 - 14.5 % [facility] Hematocrit (Bld) [Volume fraction] 34.9 % Low 35.0 - 47.0 % [facility] Hemoglobin (Bld) [Mass/Vol] 11.5 g/dL Low 11.7 - 16.0 g/dL [facility] Interpretation and review of laboratory results Abnormal [facility] Lymphocytes (Bld) [#/Vol] 1.7 10*3/uL 1.0 - 4.3 10*3/uL [facility] Lymphocytes/100 WBC (Bld) 12.6 % Low 20.0 - 40.0 % [facility] MCH (RBC) [Entitic mass] 28.7 pg 26.0 - 34.0 pg [facility] MCHC (RBC) [Mass/Vol] 33.0 % 32.0 - 36.0 % [facility] MCV (RBC) [Entitic vol] 87.1 fL 80.0 - 98.0 fL [facility] Monocytes (Bld) [#/Vol] 1.5 10*3/uL High 0.0 - 0.8 10*3/uL [facility] Monocytes/100 WBC (Bld) 10.8 % High 2.0 - 10.0 % [facility] Neutrophils (Bld) [#/Vol] 10.3 10*3/uL High 1.8 - 7.0 10*3/uL [facility] Neutrophils/100 WBC (Bld) 74.6 % 40.0 - 80.0 % [facility] Nucleated RBC/100 WBC (Bld) [Ratio] 0.0 % [facility] Platelet mean volume (Bld) [Entitic vol] 8.5 fL 7.4 - 12.4 fL [facility] Platelets (Bld) [#/Vol] 271 10*3/uL 140 - 440 10*3/uL [facility] RBC (Bld) [#/Vol] 4.00 10*6/uL 3.8 - 5.20 10*6/uL [facility] WBC (Bld) [#/Vol] 13.8 10*3/uL High 3.6 - 10.7 10*3/uL [facility] CBC WITH AUTO DIFFERENTIALon 03-01-2023 Basophils (Bld) [#/Vol] 0.1 10*3/uL Normal 0.0-0.2 [facility] Comment on above: Performed By: #### L [id number] ####Cnc Wood Lathe Operator: MARTIN REYES ([phone])[facility] ([facility])[address] [place] [address] Basophils/100 WBC (Bld) 0.6 % Normal 0.0-2.0 S [facility] Comment on above: Performed By: #### L [id number] ####Cnc Wood Lathe Operator: MARTIN REYES ([phone])[facility] ([facility])[address] Eosinophils (Bld) [#/Vol] 0.2 10*3/uL Normal 0.0-0.5 [facility] Comment on above: Performed By: #### L [id number] ####Cnc Wood Lathe Operator: MARTIN REYES ([phone])[facility] ([facility])[address] Eosinophils/100 WBC (Bld) 1.4 % Normal 1.0-6.0 [facility] Comment on above: Performed By: #### L [id number] ####Cnc Wood Lathe Operator: MARTIN REYES ([phone])[facility] [place] ([facility])[address] Erythrocyte distribution width (RBC) [Ratio] 13.6 % Normal 11.5-14.5 [facility] Comment on above: Performed By: #### L [id number] ####Cnc Wood Lathe Operator: MARTIN REYES ([phone])[facility] [place] [facility])[address] ERYTHROCYTE MEAN CORPUSCULAR HEMOGLOBIN CONCENTRATION (G/DL) BY AUTOMATED 33.0 % Normal 32.0-36.0 [facility] Comment on above: Performed By: #### L [id number] ####Cnc Wood Lathe Operator: MARTIN REYES ([phone])[facility])[address] [place] [address] Hematocrit (Bld) [Volume fraction] 34.9 % Low 35.0-47.0 [facility] Comment on above: Performed By: #### L [id number] ####Cnc Wood Lathe Operator: MARTIN REYES ([phone])[facility])[address] [place] [address] Hemoglobin (Bld) [Mass/Vol] 11.5 g/dL Low 11.7-16.0 [facility] Comment on above: Performed By: #### L [id number] ####Cnc Wood Lathe Operator: MARTIN REYES ([phone])[facility] [place] [facility])[address] Lymphocytes (Bld) [#/Vol] 1.7 10*3/uL Normal 1.0-4.3 [facility] Comment on above: Performed By: #### L [id number] ####Cnc Wood Lathe Operator: MARTIN REYES ([phone])[facility] ([facility])[address] Lymphocytes/100 WBC (Bld) 12.6 % Low 20.0-40.0 [facility] Comment on above: Performed By: #### L [id number] ####Cnc Wood Lathe Operator: MARTIN REYES ([id number])[facility] [place] ([facility])[address] MCH (RBC) [Entitic mass] 28.7 pg Normal 26.0-34.0 [facility] Comment on above: Performed By: #### L [id number] ####Cnc Wood Lathe Operator: MARTIN REYES ([phone])[facility] [place] ([facility])[address] MCV (RBC) [Entitic vol] 87.1 fL Normal 80.0-98.0 S [facility] Comment on above: Performed By: #### L [id number] ####Cnc Wood Lathe Operator: MARTIN REYES ([phone])[facility] [place] ([facility])[address] Monocytes (Bld) [#/Vol] 1.5 10*3/uL High 0.0-0.8 [facility] Comment on above: Performed By: #### L [id number] ####Cnc Wood Lathe Operator: MARTIN REYES ([phone])[facility] [place] ([facility])[address] [place] [address] [place] Monocytes/100 WBC (Bld) 10.8 % High 2.0-10.0 S [facility] Comment on above: Performed By: #### L [id number] ####Cnc Wood Lathe Operator: MARTIN REYES ([id number])[facility] [place] ([facility])[address] [place] [address] [place] Neutrophils (Bld) [#/Vol] 10.3 10*3/uL High 1.8-7.0 [facility] Comment on above: Performed By: #### L [id number] ####Cnc Wood Lathe Operator: MARTIN REYES ([phone])[facility] ([facility])[address] Neutrophils/100 WBC (Bld) 74.6 % Normal 40.0-80.0 [facility] Comment on above: Performed By: #### L [id number] ####Cnc Wood Lathe Operator: MARTIN AMBROSEJOSE R ([phone])[facility] ([facility])[address] [place] [address] [place] NRBC (PER 100 WBCS) BY AUTOMATED COUNT 0.0 /100 WBCs Normal 0.0-2.0 [facility] Comment on above: Performed By: #### L [id number] ####Cnc Wood Lathe Operator: MARTIN AMBROSEJOSE R ([phone])[facility] ([facility])[address] Platelet mean volume (Bld) [Entitic vol] 8.5 fL Normal 7.4-12.4 [facility] Comment on above: Performed By: #### L [id number] ####Cnc Wood Lathe Operator: MARTIN AMBROSEJOSE R ([phone])[facility] [place] ([facility])[address] [place] [address] [place] PLATELETS (10*3/UL) IN BLOOD AUTOMATED COUNT 271 10*3/uL Normal 140-440 [facility] Comment on above: Performed By: #### L [id number] ####Cnc Wood Lathe Operator: MARTIN REYES ([phone])[facility] ([facility])[address] [place] [address] [place] RBC (Bld) [#/Vol] 4.00 10*6/uL Normal 3.8-5.20 [facility] Comment on above: Performed By: #### L [id number] ####Cnc Wood Lathe Operator: MARTIN AMBROSEJOSE R ([phone])[facility] ([facility])[address] [place] [address] [place] WBC (Bld) [#/Vol] 13.8 10*3/uL High 3.6-10.7 [facility] Comment on above: Performed By: #### L [id number] ####Cnc Wood Lathe Operator: MARTIN REYES ([id number])[facility] [place] ([facility])[address] COMPREHENSIVE METABOLIC PANE Real 03-01-2023 Albumin [Mass/Vol] 3.1 g/dL Low 3.5-5.0 [facility] Comment on above: Performed By: #### L [id number] ####Cnc Wood Lathe Operator: MARTIN REYES ([phone])[facility] [place] ([facility])[address] ALP [Catalytic activity/Vol] 102 U/L Normal 38-126 [facility] Comment on above: Performed By: #### L AB17 ####Cnc Wood Lathe Operator: MARTIN REYES ([phone])[facility] [place] ([facility])[address] ALT [Catalytic activity/Vol] 16 U/L Normal 0-34 [facility] Comment on above: Performed By: #### L AB17 ####Cnc Wood Lathe Operator: MARTIN REYES ([phone])[facility] [place] ([facility])[address] Anion gap [Moles/Vol] 9 mmol/L Normal 3-13 [facility] Comment on above: Performed By: #### L AB17 ####Cnc Wood Lathe Operator: MARTIN REYES ([phone])[facility] [place] ([facility])[address] AST [Catalytic activity/Vol] 24 U/L Normal 15-46 [facility] Comment on above: Performed By: #### L AB17 ####Cnc Wood Lathe Operator: MARTIN REYES ([id number])[facility] [place] ([facility])[address] Bilirubin [Mass/Vol] 0.4 mg/dL Normal 0.2-1.3 [facility] Comment on above: Performed By: #### L AB17 ####Cnc Wood Lathe Operator: MARTIN REYES ([phone])[facility] [place] ([facility])[address] Calcium [Mass/Vol] 8.3 mg/dL Low 8.4-10.4 [facility] Comment on above: Performed By: #### L AB17 ####Cnc Wood Lathe Operator: MRATIN REYES ([id number])[facility] [place] ([facility])[address] Chloride [Moles/Vol] 102 mmol/L Normal 98-107 [facility] Comment on above: Performed By: #### L AB17 ####Cnc Wood Lathe Operator: MARTIN REYES ([phone])[facility] ([facility])[address] CO2 [Moles/Vol] 26 mmol/L Normal 22-30 [facility] Comment on above: Performed By: #### L AB17 ####Cnc Wood Lathe Operator: MARTIN REYES ([phone])[facility] ([facility])[address] Creatinine [Mass/Vol] 0.96 mg/dL Normal 0.52-1.04 [facility] Comment on above: Performed By: #### L AB17 ####Cnc Wood Lathe Operator: MARTIN REYES ([phone])[facility] ([facility])[address] [place] [address] [place] GLOMERULAR FILTRATION RATE ML/MIN/1.73 SQ M.PREDICTED 60.3 mL/min/1.73m*2 Normal >60.0 [facility] Comment on above: Result Comment: Calc ulation based on the Chronic Kidney Disease Epidemiology Collaboration (CKD-EPI) equation refit without adjustment for race Performed By: #### L AB17 ####Cnc Wood Lathe Operator: MARTIN REYES ([id number])[facility] ([facility])[address] [place] [address] [place] Glucose [Mass/Vol] 123 mg/dL High 70-100 [facility] Comment on above: Performed By: #### L AB17 ####Cnc Wood Lathe Operator: MARTIN REYES ([phone])[facility] [place] ([facility])[address] Potassium [Moles/Vol] 4.3 mmol/L Normal 3.5-5.1 [facility] Comment on above: Performed By: #### L AB17 ####Cnc Wood Lathe Operator: MARTIN REYES ([phone])[facility] [place] ([facility])[address] Protein [Mass/Vol] 6.0 g/dL Low 6.3-8.2 [facility] Comment on above: Performed By: #### L AB17 ####Cnc Wood Lathe Operator: MARTIN REYES ([phone])[facility] [place] ([facility])[address] Sodium [Moles/Vol] 137 mmol/L Normal 135-145 [facility] Comment on above: Performed By: #### L AB17 ####Cnc Wood Lathe Operator: MARTIN REYES ([phone])[facility] [place] ([facility])[address] Urea nitrogen [Mass/Vol] 17 mg/dL Normal 7-17 [facility] Comment on above: Performed By: #### L AB17 ####Cnc Wood Lathe Operator: MARTIN REYES ([phone])[facility] [place] ([facility])[address] Comprehensive metabolic 1998 panelon 03-01-2023 Albumin [Mass/Vol] 3.1 g/dL Low 3.5 - 5.0 g/dL [facility] ALP [Catalytic activity/Vol] 102 U/L 38 - 126 U/L [facility] ALT [Catalytic activity/Vol] 16 U/L 0 - 34 U/L [facility] Anion gap [Moles/Vol] 9 mmol/L 3 - 13 mmol/L [facility] AST [Catalytic activity/Vol] 24 U/L 15 - 46 U/L [facility] Bilirubin [Mass/Vol] 0.4 mg/dL 0.2 - 1 .3 mg/dL [facility] Calcium [Mass/Vol] 8.3 mg/dL Low 8.4 - 10. 4 mg/dL [facility] Chloride [Moles/Vol] 102 mmol/L 98 - 10 7 mmol/L [facility] CO2 [Moles/Vol] 26 mmol/L 22 - 30 mmol/L [facility] Creatinine [Mass/Vol] 0.96 mg/dL 0.52 - 1.04 mg/dL [facility] GFR/1.73 sq M.predicted MDRD (S/P/Bld) [Vol rate/Area] 60.3 mL/min/{1.73_m2} - PINF [facility] Comment on above: Calculation based on the Chronic Kidney Disease Epidemiology Collaboration (CKD-EPI) equation refit without adjustment for race Glucose [Mass/Vol] 123 mg/dL High 70 - 100 mg/dL [facility] Interpretation and review of laboratory results Abnormal [facility] Potassium [Moles/Vol] 4.3 mmol/L 3.5 - 5.1 mmol/L [facility] Protein [Mass/Vol] 6.0 g/dL Low 6.3 - 8.2 g/dL [facility] Sodium [Moles/Vol] 137 mmol/L 135 - 145 mmol/L [facility] Urea nitrogen [Mass/Vol] 17 mg/dL 7 - 17 mg/dL [facility] Consulton 03-01-2023 Consult [facility] Wound Care CONSULT Note Radha Sandoval AGE: [...] Uncontrolled type 2 diabetes mellitus with hyperglycemia ([facility]) 01/16/2020 Morbidly obese ([facility]) 01/16/2020 Vitamin D deficiency 01/16/2020 Moderate episode of recurrent major depressive disorder ([facility]) 06/03/2019 OAB (overactive bladder) 05/06/2021 Localized edema 10/01/2020 Insomnia 04/06/2015 Dyspnea on exertion 09/09/2021 Muscle spasms of both lower extremities 09/09/2021 Chronic renal insufficiency, stage III (moderate) ([facility]) 06/03/2019 Restless legs syndrome (RLS) [...] Hyperparathyroidism (HCC) Malaise and fatigue Morbid obesity ([facility]) Muscle weakness Nevus, non-neoplastic Pain in limb Pure hypercholesterolemia RLS (restless legs syndrome) Type 2 diabetes mellitus (HCC) Varicella PAST SURGICAL HISTORY Past Surgical History: Procedure Laterality Date APPENDECTOMY CHOLECYSTECTOMY 1979 COLONOSCOPY 06/19/2008 COLONOSCOPY W/ BIOPSIES AND POLYPECTOMY N/A 12/07/2022 Performed by Avery Marshall DO at [facility] ENDOSCOPY EYE SURGERY Bilateral early 90's LUNG [...] tablet 0 ergocalciferol (Vitamin D-2) 1.25 MG (11768 UT) capsule Take 1 capsule (1.25 mg) by mouth 1 (one) time per week. 90 capsule 1 Glucose Blood (Blood Glucose Test) strip 4 times daily. hydrOX (more content not included)... Normal [facility] Consult [facility] Geriatric Medicine Inpatient Consult Service Admission Date: 02/28/2023 Admission Status: INPATIENT Chief Complaint: "I couldn't get around and they directed me to the hospital because I was peeing constantly from that UTI." Reason for Appointment Geriatrics consulted for "functional decline" Assessment/Plan Principal Problem: LING (acute kidney injury) ([facility]/HCC) ([facility]) Active Problems: Declining functional status [...] on her chart. I verbally told nurse Marquez at hospital. Dispo Anticipated discharge; patient would be amenable to home with home health if necessary I recommended follow up at our [facility] at [phone]. Call in 2 weeks for memory (re)testing once acute issue(s) resolve - [facility] Other I deferred full MMSE [...] chills. Will admit for further evaluation and management." Geriatrics ED screen positive for: lives alone/needs [...] well overnight. Awo (more content not included)... Normal [facility] Consult This patient is not a new [...] associated supplies are needed. Thank you. Elder RN,BSN,[facility] Consult Department of [employer] Equipment Repairer al Medicine Division of Endocrinology, Diabetes, & Metabolism Endocrinology Note Patient Name: Radha Sandoval : 1945 AGE: 77 y.o. Room[facility]Bed: [facility] A Admission Date: 02/28/2023 Visit Date: 03/01/2023 Reason for Endocrine Consult: DM-Uncontrolled Provider/Team Requesting Consult: Dr. Finch PCP: Shiv Lopez MD Outpt Rehab Care Assistant: No ASSESSMENT: Type II diabetes with hyperglycemia, with skilled nursing insulin use Postoperative hypothyroidism PLAN: Humalog 6 [...] diagnosis. She has been having diarrhea in [id number], smt severe Glimepiride- started in 2015 Trulicity [...] Heart s (more content not included)... Normal [facility] HEMOGLOBIN A1Con 03-01-2023 Glucose [Mass/Vol] 315 mg/dL Normal [facility] Comment on above: Performed By: #### L AB90 ####Cnc Wood Lathe Operator: MARTIN REYES ([phone])[facility] ([facility])[address] [place] [address] HbA1c (Bld) [Mass fraction] 12.6 % High <5.7 [facility] Comment on above: Result Comment: Norm al less than 5.7% Prediabetes 5.7% to 6.4% Diabetes 6.5% or higher --HgbA1C levels may not be accurate in patients who have renal disease, received recent blood transfusions, are anemic, or who have dyshemoglobinemia. Performed By: #### L AB90 ####Cnc Wood Lathe Operator: MARTIN REYES ([phone])[facility] ([facility])[address] [place] [address] HbA1c (Bld) [Mass fraction]o n 03-01-2023 Average glucose Estimated from glycated hemoglobin (Bld) [Mass/Vol] 315 mg/dL [facility] Interpretation and review of laboratory results Abnormal [facility] Hemoglobin A1con 03-01-2023 HbA1c (Bld) [Mass fraction] 12.6 % High NINF - 5.7 % [facility] Comment on above: Normal less than 5.7 % Prediabetes 5.7% to 6.4% Diabetes 6.5% or higher --HgbA1C levels may not be accurate in patients who have renal disease, received recent blood transfusions, are anemic, or who have dyshemoglobinemia. POCT glucose meteron 023 Glucose [Mass/Vol] 194 mg/dL High 70 - 100 mg/dL [facility] Interpretation and review of laboratory results Abnormal [facility] Performed by: [facility], [address] [place] [id number] CLIA ID: [id number] [facility] Glucose [Mass/Vol] 95 mg/dL 70 - 100 mg/dL [facility] Interpretation and review of laboratory results Normal [facility] Performed by: [facility], [address] [place] [id number] CLIA ID: [id number] [facility] Glucose [Mass/Vol] 153 mg/dL High 70 - 100 mg/dL [facility] Interpretation and review of laboratory results Abnormal [facility] Performed by: [facility], [address] [place] [address] CLIA ID: [id number] [facility] Glucose [Mass/Vol] 172 mg/dL High 70 - 100 mg/dL [facility] Interpretation and review of laboratory results Abnormal [facility] Performed by: [facility], [address] [place] [id number] CLIA ID: [id number] [facility] PROCALCITONIN TESTon 023 PROCALCITONIN 0.05 ng/mL Normal 0.00-0.09 [facility] Comment on above: Result Comment: LISA R COMMENTS: PCT <0.50 = Low risk of severe sepsis and/or septic shock. PCT >2.00 = High risk of severe sepsis and/or septic shock. Performed By: #### L [id number] ####Cnc Wood Lathe Operator: ASHLEY LLANOS ([phone])[facility] ([facility])[address] [place] [address] Procalcitonin Teston 023 Procalcitonin [Mass/Vol] 0.05 ng/mL 0.00 - 0.09 ng/mL [facility] Procalcitonin [Mass/Vol]on 0 03-01-2023 Interpretation and review of laboratory results Normal [facility] PCT <0.50 = Low risk of severe sepsis and/or septic shock. PCT >2.00 = High risk of severe sepsis and/or septic shock. [facility] Progress Noteon 03-01-2023 Progress Note Physical Therapy Facility/Department: [address] Physical Therapy Initial Evaluation NAME: Radha Sandoval : 1945 Date of Service: 03/01/2023 Discharge Recommendations: Group Home Facility, Continue to assess pending progress PT [...] diagnosis was LING (acute kidney injury) (CMS/HCC) (HCC). Diagnoses of Pyelonephritis, Polypharmacy, Insomnia, unspecified type, [...] Device: straight cane Transfer Assistance: Independent Active Business Process Manager: Yes Objective Observation/Palpation Posture: Good Observation: PIV [...] from lucy (more content not included)... Normal [facility] Progress Note Occupational Therapy OCCUPATIONAL THERAPY [facility] Initial Evaluation Name/MRN: Radha Sandoval ([id number]) Evaluation Date: 03/01/2023 Date of : 1945 Admission Date: 02/28/2023 11:30 AM Age: 77 y.o. Room/Bed: [facility]153/[facility] A Discharge Recommendation: SNF and Continue to [...] BIOPSIES AND POLYPECTOMY N/A 12/07/2022 Performed by Aveyr Marshall DO at [facility] ENDOSCOPY EYE SURGERY Bilateral early 90's LUNG REMOVAL, PARTIAL Left ROTATOR CUFF REPAIR Left TONSILLECTOMY Admission Diagnosis: Patient Active Problem List Diagnosis Date Noted LING (acute kidney injury) ([facility]/HCC) (HCC) 02/28/2023 Acute cystitis with hematuria 02/27/2023 [...] Uncontrolled type 2 diabetes mellitus with hyperglycemia ([facility]) 01/16/2020 Morbidly obese ([facility]) 01/16/2020 Vitamin D deficiency 01/16/2020 Moderate episode of recurrent major depressive disorder ([facility]) 06/03/2019 Chronic renal insufficiency, stage III (moderate) ([facility]) 06/03/2019 Hyperlipidemia with target LDL [...] Responsibilities: Independent Receives Help From: None Active Business Process Manager: Yes Prior Level of Function ADL Assistance: [...] Adls. Upper Ext (more content not included)... [facility] 36on 02-28-2023 36 Noted. Patient sana mendenhall notified. See previous TE if needed. [facility] 36 Called and spoke wit h patient. [...] states that she will be going to [facility]. [facility] 36 S: Christine from [employer] [phone] spoke with [facility] nurse regarding critical lab results B: Glucose A: Blood was drawn yesterday. Glucose was 524, resulting this morning. Verified with repeat analysis. The lab work was ordered by Katia Granados CNP. R: Since office is open, called back line and spoke with Katia Schulz's nurse. Result given. No further instructions to the [facility] nurse. Reason for Disposition Lab or radiology calling with CRITICAL test results Protocols used: PCP Call - No [id number] CARECOORDon 02-28-2023 [place] Next Site of Care Admission Date: 02/28/2023 11:30 AM Patient Name: RADHA SANDOVAL Location: [address] MED SURG/SB [id number] A Date of : 1945 - Placement Information - Referral Type:Intermediate/SNF - New Referral ID:[facility]-[id number] Provider Name:[facility] Address 1:[address] Address 2: City:[place] Selection Factors:Patient/Family Choice State:[facility] CBC W Auto Differential pane l (Bld)Ordered By: Clayton Lozano on 02-28-2023 Basophils (Bld) [#/Vol] 0.1 10*3/uL 0.0 - 0.2 10*3/uL [facility] Basophils/100 WBC (Bld) 0.5 % 0.0 - 2.0 % [facility] Eosinophils (Bld) [#/Vol] 0.1 10*3/uL 0.0 - 0.5 10*3/uL [facility] Eosinophils/100 WBC (Bld) 0.9 % Low 1.0 - 6.0 % [facility] Erythrocyte distribution width (RBC) [Ratio] 13.8 % 11.5 - 14.5 % [facility] Hematocrit (Bld) [Volume fraction] 36.0 % 35.0 - 47.0 % [facility] Hemoglobin (Bld) [Mass/Vol] 11.5 g/dL Low 11.7 - 16.0 g/dL [facility] Interpretation and review of laboratory results Abnormal [facility] Lymphocytes (Bld) [#/Vol] 0.8 10*3/uL Low 1.0 - 4.3 10*3/uL [facility] Lymphocytes/100 WBC (Bld) 6.4 % Low 20.0 - 40.0 % [facility] MCH (RBC) [Entitic mass] 28.0 pg 26.0 - 34.0 pg [facility] MCHC (RBC) [Mass/Vol] 32.0 % 32.0 - 36.0 % [facility] MCV (RBC) [Entitic vol] 87.5 fL 80.0 - 98.0 fL [facility] Monocytes (Bld) [#/Vol] 1.1 10*3/uL High 0.0 - 0.8 10*3/uL [facility] Monocytes/100 WBC (Bld) 9.0 % 2.0 - 10.0 % [facility] Neutrophils (Bld) [#/Vol] 10.2 10*3/uL High 1.8 - 7.0 10*3/uL [facility] Neutrophils/100 WBC (Bld) 83.2 % High 40.0 - 80.0 % [facility] Nucleated RBC/100 WBC (Bld) [Ratio] 0.0 % [facility] Platelet mean volume (Bld) [Entitic vol] 8.6 fL 7.4 - 12.4 fL [facility] Platelets (Bld) [#/Vol] 278 10*3/uL 140 - 440 10*3/uL [facility] RBC (Bld) [#/Vol] 4.11 10*6/uL 3.8 - 5.20 10*6/uL [facility] WBC (Bld) [#/Vol] 12.3 10*3/uL High 3.6 - 10.7 10*3/uL [facility] CBC WITH AUTO DIFFERENTIALon 02-28-2023 Basophils (Bld) [#/Vol] 0.1 10*3/uL Normal 0.0-0.2 [facility] Comment on above: Performed By: #### L [id number] ####Cnc Wood Lathe Operator: MARTIN REYES ([phone])[facility] CENTERDiony [facility]ST[facility] (SBAB)[address] [place] [address] Basophils/100 WBC (Bld) 0.5 % Normal 0.0-2.0 S [facility] Comment on above: Performed By: #### L [id number] ####Cnc Wood Lathe Operator: MARTIN REYES ([phone])[facility] CENTERDiony [facility]PITALBRAINN (SBHLAB)[address] [place] [address] Eosinophils (Bld) [#/Vol] 0.1 10*3/uL Normal 0.0-0.5 [facility] Comment on above: Performed By: #### L [id number] ####Cnc Wood Lathe Operator: MARTIN REYES ([phone])[facility] CENTERDiony [facility]PITALSTEVENSON (SBAB)[address] [place] [address] Eosinophils/100 WBC (Bld) 0.9 % Low 1.0-6.0 [facility] Comment on above: Performed By: #### L [id number] ####Cnc Wood Lathe Operator: MARTIN REYES ([phone])[facility] CENTERA BARBBRAINN (SBHLAB)[address] [place] [address] Erythrocyte distribution width (RBC) [Ratio] 13.8 % Normal 11.5-14.5 [facility] Comment on above: Performed By: #### L [id number] ####Cnc Wood Lathe Operator: MARTIN REYES ([phone])[facility]ENTERA [place] (SBHLAB)[address] [place] [address] ERYTHROCYTE MEAN CORPUSCULAR HEMOGLOBIN CONCENTRATION (G/DL) BY AUTOMATED 32.0 % Normal 32.0-36.0 [facility] Comment on above: Performed By: #### L [id number] ####Cnc Wood Lathe Operator: MARTIN REYES ([phone])[facility]ENTERA [place] (SBHLAB)[address] Hematocrit (Bld) [Volume fraction] 36.0 % Normal 35.0-47.0 [facility] Comment on above: Performed By: #### L [id number] ####Cnc Wood Lathe Operator: MARTIN REYES ([phone])[facility]ENTERA [facility]ERN (SBHLAB)[address] [place] [address] Hemoglobin (Bld) [Mass/Vol] 11.5 g/dL Low 11.7-16.0 [facility] Comment on above: Performed By: #### L [id number] ####Cnc Wood Lathe Operator: MARTIN REYES ([phone])[facility] CENTERDiony [facility]ERN (SBHLAB)[address] [place] [address] Lymphocytes (Bld) [#/Vol] 0.8 10*3/uL Low 1.0-4.3 [facility] Comment on above: Performed By: #### L [id number] ####Cnc Wood Lathe Operator: MARTIN REYES ([phone])[facility] CENTERDiony [facility] (SBHLAB)[address] [place] [address] Lymphocytes/100 WBC (Bld) 6.4 % Low 20.0-40.0 [facility] Comment on above: Performed By: #### L [id number] ####Cnc Wood Lathe Operator: MARTIN REYES ([phone])[facility]ENTERA [place] (SBHLAB)[address] MCH (RBC) [Entitic mass] 28.0 pg Normal 26.0-34.0 [facility] Comment on above: Performed By: #### L [id number] ####Cnc Wood Lathe Operator: MARTIN REYES ([phone])[facility] [place] (SBHLAB)[address] MCV (RBC) [Entitic vol] 87.5 fL Normal 80.0-98.0 S [facility] Comment on above: Performed By: #### L [id number] ####Cnc Wood Lathe Operator: MARTIN REYES ([phone])[facility] [place] (SBHLAB)[address] [place] [address] [place] Monocytes (Bld) [#/Vol] 1.1 10*3/uL High 0.0-0.8 [facility] Comment on above: Performed By: #### L [id number] ####Cnc Wood Lathe Operator: MARTIN REYES ([phone])[facility] [place] (SBHLAB)[address] Monocytes/100 WBC (Bld) 9.0 % Normal 2.0-10.0 S [facility] Comment on above: Performed By: #### L [id number] ####Cnc Wood Lathe Operator: MARTIN REYES ([phone])[facility] [place] (SBHLAB)[address] [place] [address] [place] Neutrophils (Bld) [#/Vol] 10.2 10*3/uL High 1.8-7.0 [facility] Comment on above: Performed By: #### L [id number] ####Cnc Wood Lathe Operator: MARTIN REYES ([phone])[facility] [place] (SBHLAB)[address] [place] [address] [place] Neutrophils/100 WBC (Bld) 83.2 % High 40.0-80.0 [facility] Comment on above: Performed By: #### L [id number] ####Cnc Wood Lathe Operator: MARTIN REYES ([phone])[facility] [place] (SBHLAB)[address] [place] [address] [place] NRBC (PER 100 WBCS) BY AUTOMATED COUNT 0.0 /100 WBCs Normal 0.0-2.0 [facility] Comment on above: Performed By: #### L [id number] ####Cnc Wood Lathe Operator: MARTIN HUANateJOSE R ([phone])[facility] [place] (SBHLAB)[address] Platelet mean volume (Bld) [Entitic vol] 8.6 fL Normal 7.4-12.4 [facility] Comment on above: Performed By: #### L [id number] ####Cnc Wood Lathe Operator: MARTIN FLEMINGCER ([phone])[facility] CENTERDiony [place] (SBHLAB)[address] PLATELETS (10*3/UL) IN BLOOD AUTOMATED COUNT 278 10*3/uL Normal 140-440 [facility] Comment on above: Performed By: #### L [id number] ####Cnc Wood Lathe Operator: MARTIN HUAWILFREDO ([phone])[facility] CENTERDiony [place] (SBHLAB)[address] [place] [address] RBC (Bld) [#/Vol] 4.11 10*6/uL Normal 3.8-5.20 [facility] Comment on above: Performed By: #### L [id number] ####Cnc Wood Lathe Operator: MARTIN HUAWILFREDO ([phone])[facility] CENTERDiony [facility] (SBHLAB)[address] WBC (Bld) [#/Vol] 12.3 10*3/uL High 3.6-10.7 [facility] Comment on above: Performed By: #### L [id number] ####Cnc Wood Lathe Operator: MARTIN REYES ([phone])[facility] CENTERDiony [place] (SBHLAB)[address] COMPLETE URINALYSISon 2022 BACTERIA (#/HPF) IN URINE Moderate Abnormal Negative [facility] Comment on above: Performed By: #### L [id number] ####Cnc Wood Lathe Operator: MARTIN AMBROSEJOSE R ([phone])[facility] CENTERDiony [facility] (SBHLAB)[address] BILIRUBIN, TOTAL PRESENCE IN URINE Negative Normal Negative [facility] Comment on above: Performed By: #### L [id number] ####Cnc Wood Lathe Operator: MARTIN REYES ([phone])[facility]ENTERA [place] (SBHLAB)[address] Clarity (U) Turbid Abnormal Clear [facility] Comment on above: Performed By: #### L [id number] ####Cnc Wood Lathe Operator: MARTIN AMBROSEJOSE R ([phone])[facility]ENTERA [facility] (SBHLAB)[address] Color (U) Light Yellow Normal Lt. Yellow [facility] Comment on above: Performed By: #### L [id number] ####Cnc Wood Lathe Operator: MARTIN REYES ([phone])[facility]ENTERA [facility] ([facility])[address] GLUCOSE (MG/DL) IN URINE >1,000 Abnormal Normal (<70) [facility] Comment on above: Performed By: #### L [id number] ####Cnc Wood Lathe Operator: MARTIN REYES ([phone])[facility]ENTERA [facility] (SBHLAB)[address] GRANULAR CASTS (#/LPF) IN URINE 0-2 Abnormal Negative [facility] Comment on above: Performed By: #### L [id number] ####Cnc Wood Lathe Operator: MARTIN AMBROSEJOSE R ([phone])[facility] CENTERA [facility]ENCOM[facility] ([facility])[address] HEMOGLOBIN PRESENCE IN URINE Negative Normal Negative [facility] Comment on above: Performed By: #### L [id number] ####Cnc Wood Lathe Operator: MARTIN REYES ([phone])[facility]ENTERA [place] (SBHLAB)[address] [place] [address] [place] HYALINE CASTS (#/LPF) IN URINE SEDIMENT BY MICROSCOPY 3-5 Abnormal Negative [facility] Comment on above: Performed By: #### L [id number] ####Cnc Wood Lathe Operator: MARTIN REYES ([phone])[facility]ENTERA [facility] (SBHLAB)[address] [place] [address] [place] Ketones Ql (U) Negative Normal Negative [facility] Comment on above: Performed By: #### L [id number] ####Cnc Wood Lathe Operator: MARTIN REYES ([phone])[facility]ENTERA BARBBRAINN (SBHLAB)[address] LEUKOCYTE ESTERASE PRESENCE IN URINE BY TEST STRIP 250 Sandeep/uL Abnormal Negative [facility] Comment on above: Performed By: #### L [id number] ####Cnc Wood Lathe Operator: MARTIN REYES ([phone])[facility]A [place] (SBHLAB)[address] MUCUS (#/LPF) IN URINE SEDIMENT Few Normal Negative [facility] Comment on above: Performed By: #### L [id number] ####Cnc Wood Lathe Operator: MARTIN REYES ([phone])[facility]A [place]BB[place]N ([facility])[address] [place] [address] NITRITE PRESENCE IN URINE Positive Abnormal Negative [facility] Comment on above: Performed By: #### L [id number] ####Cnc Wood Lathe Operator: MARTIN REYES ([phone])[facility] [place] (SBHLAB)[address] pH (U) 5.0 [pH] Normal 5.0-8.0 [facility] Comment on above: Performed By: #### L [id number] ####Cnc Wood Lathe Operator: MARTIN REYES ([phone])[facility]A [place] (SBHLAB)[address] [place] [address] Protein (U) [Mass/Vol] 20 mg/dL Abnormal Negative [facility] Comment on above: Performed By: #### L [id number] ####Cnc Wood Lathe Operator: MARTIN REYES ([phone])[facility]A [place] (SBHLAB)[address] [place] [address] [place] RBC (#/HPF) IN URINE SEDIMENT 0-2 Normal 0-2 [facility] Comment on above: Performed By: #### L [id number] ####Cnc Wood Lathe Operator: MARTIN REYES ([phone])[facility] [place] (SBHLAB)[address] Specific gravity (U) [Rel density] 1.020 Normal 1.005-1.030 [facility] Comment on above: Performed By: #### L [id number] ####Cnc Wood Lathe Operator: MARTIN REYES ([phone])[facility]A [place] (SBHLAB)[address] [place] [address] [place] SQUAMOUS EPITHELIAL CELLS (#/HPF) IN URINE SEDIMENT 3-5 Normal 3-5 [facility] Comment on above: Performed By: #### L [id number] ####Cnc Wood Lathe Operator: MARTIN REYES ([phone])[facility]A [place] (SBHLAB)[address] UROBILINOGEN (MG/DL) IN URINE Normal Normal Normal (0-1) [facility] Comment on above: Performed By: #### L [id number] ####Cnc Wood Lathe Operator: MARTIN REYES ([phone])[facility]ENTERA [place] (SBHLAB)[address] [place] [address] [place] WBC (LEUKOCYTE) (#/HPF) IN URINE SEDIMENT 11-25 Abnormal 0-5 [facility] Comment on above: Performed By: #### L [id number] ####Cnc Wood Lathe Operator: MARTIN REYES ([phone])[facility]A [place] (SBHLAB)[address] [place] [address] [place] WBC (LEUKOCYTE) CLUMPS (#/HPF) IN URINE SEDIMENT Occasional Abnormal Negative [facility] Comment on above: Performed By: #### L [id number] ####Cnc Wood Lathe Operator: MARTIN REYES ([phone])[facility]A [place] (SBHLAB)[address] [place] [address] [place] YEAST (#/HPF) IN URINE Few Abnormal Negative [facility] Comment on above: Performed By: #### L [id number] ####Cnc Wood Lathe Operator: MARTIN REYES ([phone])[facility]A [place] (SBHLAB)[address] COMPREHENSIVE METABOLIC PANE Real 02-28-2023 Albumin [Mass/Vol] 3.7 g/dL Normal 3.5-5.0 [facility] Comment on above: Performed By: #### L AB17 ####Cnc Wood Lathe Operator: MARTIN REYES ([phone])[facility]A [place] (SBHLAB)[address] ALP [Catalytic activity/Vol] 119 U/L Normal 38-126 [facility] Comment on above: Performed By: #### L AB17 ####Cnc Wood Lathe Operator: MARTIN REYES ([phone])[facility] [place] (SBHLAB)[address] ALT [Catalytic activity/Vol] 18 U/L Normal 0-34 [facility] Comment on above: Performed By: #### L AB17 ####Cnc Wood Lathe Operator: MARTIN REYES ([phone])[facility] [place] (SBHLAB)[address] Anion gap [Moles/Vol] 8 mmol/L Normal 3-13 [facility] Comment on above: Performed By: #### L AB17 ####Cnc Wood Lathe Operator: MARTIN REYES ([phone])[facility]ENTERA [facility] (SBHLAB)[address] AST [Catalytic activity/Vol] 24 U/L Normal 15-46 [facility] Comment on above: Performed By: #### L AB17 ####Cnc Wood Lathe Operator: MARTIN REYES ([phone])[facility] [place] (SBHLAB)[address] Bilirubin [Mass/Vol] 0.5 mg/dL Normal 0.2-1.3 [facility] Comment on above: Performed By: #### L AB17 ####Cnc Wood Lathe Operator: MARTIN REYES ([phone])[facility] [place] (SBHLAB)[address] Calcium [Mass/Vol] 8.4 mg/dL Normal 8.4-10.4 [facility] Comment on above: Performed By: #### L AB17 ####Cnc Wood Lathe Operator: MARTIN REYES ([phone])FROYLANA [place] (SBHLAB)[address] Chloride [Moles/Vol] 96 mmol/L Low 98-107 [facility] Comment on above: Performed By: #### L AB17 ####Cnc Wood Lathe Operator: MARTIN REYES ([phone])[facility] [place] (SBHLAB)[address] CO2 [Moles/Vol] 26 mmol/L Normal 22-30 [facility] Comment on above: Performed By: #### L AB17 ####Cnc Wood Lathe Operator: MARTIN REYES ([phone])[facility] CENTERDiony [place] (SBHLAB)[address] Creatinine [Mass/Vol] 1.22 mg/dL High 0.52-1.04 [facility] Comment on above: Performed By: #### L AB17 ####Cnc Wood Lathe Operator: AMRTIN REYES ([phone])[facility] [place] (SBHLAB)[address] GLOMERULAR FILTRATION RATE ML/MIN/1.73 SQ M.PREDICTED 45.2 mL/min/1.73m*2 Low >60.0 [facility] Comment on above: Result Comment: Calc ulation based on the Chronic Kidney Disease Epidemiology Collaboration (CKD-EPI) equation refit without adjustment for race Performed By: #### L AB17 ####Cnc Wood Lathe Operator: MARTIN REYES ([phone])[facility] [place] (SBHLAB)[address] [place] [address] [place] Glucose [Mass/Vol] 483 mg/dL Critically high 70-100 [facility] Comment on above: Performed By: #### L AB17 ####Cnc Wood Lathe Operator: MARTIN REYES ([phone])[facility] [place] (SBHLAB)[address] [place] [address] [place] Potassium [Moles/Vol] 4.0 mmol/L Normal 3.5-5.1 [facility] Comment on above: Performed By: #### L AB17 ####Cnc Wood Lathe Operator: MARTIN REYES ([phone])[facility]A [facility] (SBHLAB)[address] Protein [Mass/Vol] 6.6 g/dL Normal 6.3-8.2 [facility] Comment on above: Performed By: #### L AB17 ####Cnc Wood Lathe Operator: MARTINDWAINE REYES ([phone])[facility] [place] (SBHLAB)[address] Sodium [Moles/Vol] 130 mmol/L Low 135-145 [facility] Comment on above: Performed By: #### L AB17 ####Cnc Wood Lathe Operator: MARTINDWAINE REYES ([phone])[facility]A [facility] (SBHLAB)[address] Urea nitrogen [Mass/Vol] 20 mg/dL High 7-17 [facility] Comment on above: Performed By: #### L AB17 ####Cnc Wood Lathe Operator: MARTIN REYES ([phone])[facility]ENTERA [place] (SBHLAB)[address] ABDOMEN PELVIS WO [facility] ABDOMEN PELVIS WO IV CONTRAST Patient Name: RADHA SANDOVAL : 1945 [facility]#: [id number] Exam Date/Time: 02/28/2023 13:07 Procedure: CT ABDOMEN [...] back pain and burning with urination Normal [facility] CT Abdomen WO contraston Colonic diverticulosis without evidence of acute diverticulitis. Bilateral renal cysts, the largest cyst is on the left measuring up to 4.8 cm. Report Dictated on Electronically Signed By: Jb Ahmadi DO Electronically Signed Date/Time: 02/28/2023 1:44 PM EDT [facility] Advisor [employer] Patient Name: RADHA SANDOVAL : 1945 Exam Date/Time: 02/28/2023 13:07 Procedure: CT ABDOMEN [...] the aorta and iliac arteries are noted. [employer] Jb Ahmadi DO - 02/28/2023 Patient Name: RADHA SANDOVAL : 1945 Exam Date/Time: 02/28/2023 13:07 Procedure: CT ABDOMEN [...] Electronically Signed Date/Time: 02/28/2023 1:44 PM EDT [facility] Radiology Study observation (narrative) [facility] alth CT Abdomen WO contrastOrdere d By: Jb Ahmadi on 02-28-2023 [facility] Work Phone: Comprehensive metabolic 1998 panelOrdered By: Azucena Li on 02-28-2023 Albumin [Mass/Vol] 3.7 g/dL 3.5 - 5.0 g/dL [facility] ALP [Catalytic activity/Vol] 119 U/L 38 - 126 U/L [facility] ALT [Catalytic activity/Vol] 18 U/L 0 - 34 U/L [facility] Anion gap [Moles/Vol] 8 mmol/L 3 - 13 mmol/L [facility] AST [Catalytic activity/Vol] 24 U/L 15 - 46 U/L [facility] Bilirubin [Mass/Vol] 0.5 mg/dL 0.2 - 1 .3 mg/dL [facility] Calcium [Mass/Vol] 8.4 mg/dL 8.4 - 10. 4 mg/dL [facility] Chloride [Moles/Vol] 96 mmol/L Low 98 - 10 7 mmol/L [facility] CO2 [Moles/Vol] 26 mmol/L 22 - 30 mmol/L [facility] Creatinine [Mass/Vol] 1.22 mg/dL High 0.52 - 1.04 mg/dL [facility] GFR/1.73 sq M.predicted MDRD (S/P/Bld) [Vol rate/Area] 45.2 mL/min/{1.73_m2} Low - PINF [facility] Comment on above: Calculation based on the Chronic Kidney Disease Epidemiology Collaboration (CKD-EPI) equation refit without adjustment for race Glucose [Mass/Vol] 483 mg/dL Critically high 70 - 1 00 mg/dL [facility] Interpretation and review of laboratory results Abnormal [facility] Potassium [Moles/Vol] 4.0 mmol/L 3.5 - 5.1 mmol/L [facility] Protein [Mass/Vol] 6.6 g/dL 6.3 - 8.2 g/dL [facility] Sodium [Moles/Vol] 130 mmol/L Low 135 - 145 mmol/L [facility] Urea nitrogen [Mass/Vol] 20 mg/dL High 7 - 17 mg/dL [facility] ED Nursing Noteon 02-28-2023 ED Nursing Note Pt presents for admission per her PCP. Was sent to get kidneys evaluated per pt. Pt endorses lower back pain and burning and pain with urination. Was recently admitted. Normal [facility] ED Provider Noteon ED Provider Note [facility] 1E MED SURG EMERGENCY DEPARTMENT ENCOUNTER Pt Name: Radha Sandoval Birthdate 1945 Date of evaluation: 02/28/2023 Provider: Alexander Whaley MD CHIEF COMPLAINT Chief Complaint Patient [...] 12/07/2022 Performed by Avery Marshall DO at [facility] ENDOSCOPY EYE SURGERY Bilateral early 90's LUNG [...] shoulder pain ergocalciferol (Vitamin D-2) 1.25 MG (36147 UT) capsule Take 1 capsule (1.25 mg) [...] Age of Onset Mental illness Mother GHANSHYAM Clark (more content not included)... Normal [facility] POCT glucose meteron 023 Glucose [Mass/Vol] 245 mg/dL High 70 - 100 mg/dL [facility] Interpretation and review of laboratory results Abnormal [facility] Performed by: [facility], [address] [place] [id number] CLIA ID: [id number] [facility] Glucose [Mass/Vol] 197 mg/dL High 70 - 100 mg/dL [facility] Interpretation and review of laboratory results Abnormal [facility] Performed by: [facility], [address] [place] [id number] CLIA ID: [id number] [facility] URINE CULTUREon 02-28-2023 Bacteria identified Cx Nom [...] Non-susceptible NO = No Interpretation ] Normal [facility] Comment on above: Performed By: #### L [id number] ####Cnc Wood Lathe Operator: ASHLEY LLANOS ([phone])[facility] ([facility])[address] [place] [address] Urinalysis complete panel (U )on 02-28-2023 Bacteria LM.HPF (Urine sed) [#/Area] Moderate Abnormal Negative /HPF [facility] Bilirubin Ql (U) Negative Negative mg/dL [facility] Clarity (U) Turbid Abnormal Clear [facility] Color (U) Light Yellow Lt. Yellow [facility] Epithelial cells.squamous LM.HPF (Urine sed) [#/Area] 3-[address] [facility] h Glucose Ql (U) >1,000 Abnormal Normal (<70) mg/dL [facility] Granular casts LM.HPF (Urine sed) [#/Area] 0-2 Abnormal Negative /LPF [facility] Hemoglobin Ql (U) Negative Negative mg/dL [facility] Hyaline casts Auto (Urine sed) [#/Area] 3-5 Abnormal Negative /LPF [facility] Interpretation and review of laboratory results Abnormal [facility] Ketones (U) [Mass/Vol] Negative Negat katherine mg/dL [facility] Leukocyte clumps LM.HPF (Urine sed) [#/Area] Occasional Abnormal Negative /HPF [facility] Leukocyte esterase Test strip Ql (U) 250 Abnormal Negative Sandeep/uL [facility] Mucus LM.HPF (Urine sed) [#/Area] Few Negative /LPF [facility] Nitrite Ql (U) Positive Abnormal Negative [facility] th pH (U) 5.0 [pH] 5.0 - 8.0 pH [facility] Protein (U) [Mass/Vol] 20 mg/dL Abnormal Negative [facility] RBC LM.HPF (Urine sed) [#/Area] 0-2 [facility] Specific gravity (U) [Rel density] 1.020 1.005 - 1.030 [facility] Urobilinogen (U) [Mass/Vol] Normal Normal (0-1) mg/dL [facility] WBC LM.HPF (Urine sed) [#/Area] 11-25 Abnormal [facility] Yeast.budding LM.HPF (Urine sed) [#/Area] Few Abnormal Negative /HPF [facility] 36on 02-27-2023 36 Rx sent Normal [facility] Glucose (Bld) [Mass/Vol]on 0 02-27-2023 Glucose Blood, POC 494 mg/dL [facility] Interpretation and review of laboratory results Abnormal [facility] Office Visiton 02-27-2023 Follow-up visit [id number] Radha Sandoval 1945 F Date Provider Department Center 02/27/2023 [id number] GRANADOS [facility] Family History Problem Relation Age of Onset Mental illness Mother Depression Mother Heart disease Father High Blood Pressure Father Asthma Father Hypertension Father Diabetes Brother Family Status - Relation Status Age at Mother Father Brother Level of Service:61695 ND OFFICE/OUTPATIENT ESTABLISHED MOD MDM 30-39 MIN Reason for Visit and Comments: Blood Sugar Problem [751009] Knee Pain [857827] Diarrhea [35] - Back Pain [12] Normal [facility] Progress Noteon 02-27-2023 Progress Note No fever or chills, abdomen soft. Unknown etiology. Will check CBC and CMP. Consider stool culture if symptoms continue Normal [facility] Progress Note We will check CMP today Normal [facility] Progress Note UA positive nitrites and leuks moderate blood, will start antibiotic therapy sent for culture Normal [facility] Progress Note Controlled. Continue amlodipine 10 mg daily and lisinopril 40 mg daily Normal [facility] Progress Note Will check TSH today due to recent fatigue Normal [facility] Progress Note Patient has not followed up with wound center upon visualization today wound unchanged, advised to keep area as clean as possible with frequent changes of incontinence pads Normal [facility] Progress Note Uncontrolled. Patien t having difficulties with compliance. Continue insulin regimen. Possible increased glucose due to urinary tract infection we will treat Normal [facility] Progress Note 02/27/2023 Radha Sandoval (: [...] her blood sugar today, noted In office [id number] testing 494. Urination Increased frequency, dysuria intermittently. [...] out soon. Has Maximino (son) work in [employer]. He may be able to help her [...] Lopez MD ergocalciferol (Vitamin D-2) 1.25 MG (02852 UT) capsule Take 1 capsule (1.25 mg) [...] by mouth daily. 01/13/23 04/13/23 Yes Katia Bridenthal, [employer]UIT SH[employer] - CHIEF INFORMATION SECURITY OFFICER lisinopril 40 MG tablet Take 1 tablet (40 mg) by mouth daily. 12/08/22 Yes Katia Bridenthal, FRUIT SHIPPER - CHIEF INFORMATION SECURITY OFFICER meloxicam (Mobic) 7.5 MG tablet Take 1 tablet (7.5 mg) by mouth daily. 02/07/23 Yes Katia Bridenthal, FRUIT SHIPPER - CHIEF INFORMATION SECURITY OFFICER PARoxetine (Paxil) 20 MG tablet Take 1 tablet (20 mg) by mouth every morning. 12/08/22 Yes Katia Bridenthal, FRUIT SHIPPER - CHIEF INFORMATION SECURITY OFFICER potassium chlor (more content not included)... Normal [facility] Progress Note Please see if she rodriguez s gone to ER. Call and encourage her to go if she hasn't yet. Normal [facility] Progress Note Patient was identifi ed by name and Date of . POCT glucose at [facility]-provider notified. Normal [facility] Urinalysis macro (dipstick) panel (U)on 02-27-2023 Bilirubin, UA Moderate [facility] h Blood, UA Small [facility] Glucose, UA >1,000 [facility] Interpretation and review of laboratory results Abnormal [facility] Ketones, UA Trace [facility] Leukocytes, UA Moderate [facility] Nitrite, UA Positive [facility] pH, UA 6.0 [facility] Protein, UA Trace [facility] Spec Grav, UA 1.010 [facility] Urobilinogen, UA 0.2 [facility] He alth [facility] 36on 02-24-2023 36 S: Patient spoke wit h [facility] nurse regarding: Patient needs refill on Novolog. She is out of medication. B: Onset of symptoms/concern: today A: Pt states she needs refill of her Novolog pen, she is out. R: Pt is aware of message to provider for refill. Allergies and pharmacy verified. 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 Per YAZMIN Gracia Novolog Flexpen 16 units QID, 30 days, 0 refills. Called to [facility] pharmacy, order pended on chart. Reason for Disposition [1] Prescription refill request for ESSENTIAL medicine (i.e., likelihood of harm to patient if not taken) AND [2] triager unable to refill per department policy Protocols used: Medication Refill and Renewal [id number] Normal [facility] 36 Patient is out of medication. This [...] prior to picking up the medication: Yes [place] [address] Noted. Agree with disposition. [place] [address] Sent a secure chat t chelsey Dora saambaa she is working on the [place]. [place] [address] S: Patient called [facility] clinical access [place] with complaint of elevated blood sugar B: [...] diabetes) Protocols used: Diabetes - High Blood [facility]-23-[facility]23 36 faxed [place] [address] Not quite sure what that was all about but I guess I did which she told me to do instructions were kind of difficult to understand [place] [address] Re-printing and plac ing on your desk, need to resign next to original signature with the date and then initial next to Faby with the date. [facility] 36 Faxed on 02/17/23 [facility] 36 S: Patient spoke wit h [facility] nurse regarding High Blood Sugar number possible [...] seen Protocols used: Diabetes - High Blood [id number]-UI [facility] 36 Name of caller: Paula Contact phone number: [phone] Relationship to Patient: [facility] Diabetic Provider: Dr. Lopez Practice: [facility] Chief Complaint/Reason for Call: Paula from [facility] Diabetic states that they did receive Rx for Freestyle Evin, however it was not accepted due to the correction on the sign date. Paula is requesting that we please resend the Rx, have Provider resign it, and have the Drs initial next to the date as well. Rx can be sent to #[phone]. Please advise. Best time of day caller can be reached: Any Patient advised that office/PCP has 24-48 business hours to return their call: No [facility] 36on 02-17-2023 36 Noted. Fax put in burt x to go out [place] [address] Name of caller: Colette noel Contact phone number: [phone] Relationship to Patient: [facility] Provider: Dr. Lopez Practice: [facility] Chief Complaint/Reason for Call: Caller wanted to follow up regarding request for pt diabetic continuous glucose meter that was faxed on 02.02.2023. Caller stated they received the Rx but the Rx was incomplete. Caller would like to ask office to re write with doctors initial and fax again to: [phone]. Please advise. Thank you. Best time of day caller can be reached: Any Patient advised that office/PCP has 24-48 business hours to return their call: Yes [facility] PATINSon 02-15-2023 PATINS Return in 1 week rené Magallanes If you have any questions or concerns, please call our wound center at [phone] or [phone]. Offloading Try to avoid pressure and sheering [...] as diet tolerates, to help improve healing. [facility] 36on 02-14-2023 36 Notified. [place] [address] Rx sent [place] [address] Spoke with patient s he found the bottle and it is the baclofen [place] [address] The only medications on her list and on her history it would have been used for cramps in her legs would have been her Mirapex and that 1 was just refilled in December for baclofen which is an actual muscle relaxer and that was refilled in December other than those I do not know what she would be talking about [place] [address] S: Patient spoke rené grover [facility] nurse regarding out of medication for muscle [...] policy Protocols used: Medication Refill and Renewal [id number]-DB [facility] Office Visiton 02-07-2023 Follow-up visit [id number] Radha Sandoval 1945 F Date Provider Department Center 02/07/2023 [id number] GRANADOS [facility] Family History Problem Relation Age of Onset Mental illness Mother Depression Mother Heart disease Father High Blood Pressure Father Asthma Father Hypertension Father Diabetes Brother Family Status - Relation Status Age at Mother Father Brother Level of Service:78047 ND OFFICE/OUTPATIENT ESTABLISHED LOW MDM 20-29 MIN Reason for Visit and Comments: Sore [489587] - On buttocks-getting worse [facility] Progress Noteon 02-07-2023 Progress Note Chronic. Refill mobic. [facility] Progress Note Avoid pressure to ar ea, avoid friction, keep area as dry as possible. Refer to wound clinic. [facility] Progress Note 02/07/2023 Radha Sandoval (: 1945) is a 77 y.o. female , Established patient, here for evaluation of the following chief complaint(s): Sore (On buttocks-getting worse) ASSESSMENT/PLAN: 1. Wound of right buttock, subsequent encounter Assessment & Plan: Avoid pressure to area, avoid friction, keep area as dry as possible. Refer to wound clinic. Orders: - [facility] Wound Care/[facility] 2. Chronic left [...] by mouth daily. 12/08/22 ELSA Arriaza CNP baclofen (Lioresal) 10 MG tablet Take 1 tablet (10 mg) by mouth daily. 01/13/23 ELSA Arriaza CNP ergocalciferol (Vitamin D-2) 1.25 MG (00402 UT) capsule Take 1 capsule (1.25 mg) [...] note. ELSA Arriaza CNP 02/07/2023 12:[address] [facility] Progress Note Patient was identifi ed by name and Date of . PHARMACY VERIFIED WITH PATIENT-BRENDA RIVERA. [facility] 36on 02-06-2023 36 S: Pt calling [facility] [...] splenectomy, organ transplant, chronic steroids) Protocols used: [id number] Normal [facility] Basic metabolic 1998 panelon 12-07-2022 Anion gap [Moles/Vol] 4 mmol/L 3 - 13 mmol/L [facility] Calcium [Mass/Vol] 7.2 mg/dL Low 8.4 - 10. 4 mg/dL [facility] Chloride [Moles/Vol] 110 mmol/L High 98 - 10 7 mmol/L [facility] CO2 [Moles/Vol] 24 mmol/L 22 - 30 mmol/L [facility] Creatinine [Mass/Vol] 0.63 mg/dL 0.52 - 1.04 mg/dL [facility] GFR/1.73 sq M.predicted MDRD (S/P/Bld) [Vol rate/Area] - PINF [facility] Comment on above: Calculation based on the Chronic Kidney Disease Epidemiology Collaboration (CKD-EPI) equation refit without adjustment for race Glucose [Mass/Vol] 182 mg/dL High 70 - 100 mg/dL [facility] Interpretation and review of laboratory results Abnormal [facility] Potassium [Moles/Vol] 3.3 mmol/L Low 3.5 - 5.1 mmol/L [facility] Sodium [Moles/Vol] 137 mmol/L 135 - 145 mmol/L [facility] Urea nitrogen [Mass/Vol] 14 mg/dL 7 - 17 mg/dL [facility] CBC panel Auto (Bld)Ordered By: Wendy Bruce on 12-07-2022 Erythrocyte distribution width (RBC) [Ratio] 13.8 % 11.5 - 14.5 % [facility] Hematocrit (Bld) [Volume fraction] 33.0 % Low 35.0 - 47.0 % [facility] Hemoglobin (Bld) [Mass/Vol] 10.6 g/dL Low 11.7 - 16.0 g/dL [facility] Interpretation and review of laboratory results Abnormal [facility] MCH (RBC) [Entitic mass] 29.3 pg 26.0 - 34.0 pg [facility] MCHC (RBC) [Mass/Vol] 32.2 % 32.0 - 36.0 % [facility] MCV (RBC) [Entitic vol] 90.8 fL 80.0 - 98.0 fL [facility] Platelet mean volume (Bld) [Entitic vol] 8.1 fL 7.4 - 12.4 fL [facility] Platelets (Bld) [#/Vol] 230 10*3/uL 140 - 440 10*3/uL [facility] RBC (Bld) [#/Vol] 3.63 10*6/uL Low 3.8 - 5.20 10*6/uL [facility] WBC (Bld) [#/Vol] 10.7 10*3/uL 3.6 - 10.7 10*3/uL [facility] Comprehensive metabolic 1998 panelon 12-07-2022 Albumin [Mass/Vol] 3.4 g/dL Low 3.5 - 5.0 g/dL [facility] ALP [Catalytic activity/Vol] 96 U/L 38 - 126 U/L [facility] ALT [Catalytic activity/Vol] 15 U/L 0 - 34 U/L [facility] Anion gap [Moles/Vol] 4 mmol/L 3 - 13 mmol/L [facility] AST [Catalytic activity/Vol] 40 U/L 15 - 46 U/L [facility] Bilirubin [Mass/Vol] 0.5 mg/dL 0.2 - 1 .3 mg/dL [facility] Calcium [Mass/Vol] 7.5 mg/dL Low 8.4 - 10. 4 mg/dL [facility] Chloride [Moles/Vol] 105 mmol/L 98 - 10 7 mmol/L [facility] CO2 [Moles/Vol] 27 mmol/L 22 - 30 mmol/L [facility] Creatinine [Mass/Vol] 0.76 mg/dL 0.52 - 1.04 mg/dL [facility] GFR/1.73 sq M.predicted MDRD (S/P/Bld) [Vol rate/Area] 79.8 mL/min/{1.73_m2} - PINF [facility] Comment on above: Calculation based on the Chronic Kidney Disease Epidemiology Collaboration (CKD-EPI) equation refit without adjustment for race Glucose [Mass/Vol] 188 mg/dL High 70 - 100 mg/dL [facility] Interpretation and review of laboratory results Abnormal [facility] Potassium [Moles/Vol] 3.4 mmol/L Low 3.5 - 5.1 mmol/L [facility] Protein [Mass/Vol] 6.2 g/dL Low 6.3 - 8.2 g/dL [facility] Sodium [Moles/Vol] 136 mmol/L 135 - 145 mmol/L [facility] Urea nitrogen [Mass/Vol] 10 mg/dL 7 - 17 mg/dL [facility] Hemoglobin (Bld) [Mass/Vol]O rdered By: Humphrey Juarez on 12-07-2022 Hematocrit (Bld) [Volume fraction] 33.8 % Low 35.0 - 47.0 % [facility] Interpretation and review of laboratory results Abnormal [facility] Hemoglobin (Bld) [Mass/Vol]o n 12-07-2022 Hematocrit (Bld) [Volume fraction] 33.6 % Low 35.0 - 47.0 % [facility] Interpretation and review of laboratory results Abnormal [facility] Hemoglobin (Bld) [Mass/Vol]O rdered By: Rosey Viera on 12-07-2022 Hematocrit (Bld) [Volume fraction] 32.0 % Low 35.0 - 47.0 % [facility] Interpretation and review of laboratory results Abnormal [facility] Laboratory - Chemistry and C hemistry - challengeon 12-07-2022 Magnesium [Mass/Vol] 1.3 mg/dL Low 1.6 - 2 .3 mg/dL [facility] Glucose [Mass/Vol] 179 mg/dL High 70 - 100 mg/dL [facility] Glucose [Mass/Vol] 158 mg/dL High 70 - 100 mg/dL [facility] Glucose [Mass/Vol] 160 mg/dL High 70 - 100 mg/dL [facility] Laboratory - Hematology and Cell countsOrdered By: Humphrey Juarez on 12-07-2022 Hemoglobin (Bld) [Mass/Vol] 10.9 g/dL Low 11.7 - 16.0 g/dL [facility] Laboratory - Hematology and Cell countson 12-07-2022 Hemoglobin (Bld) [Mass/Vol] 11.0 g/dL Low 11.7 - 16.0 g/dL [facility] Laboratory - Hematology and Cell countsOrdered By: Rosey Viera on 12-07-2022 Hemoglobin (Bld) [Mass/Vol] 10.4 g/dL Low 11.7 - 16.0 g/dL [facility] Magnesium [Mass/Vol]on 12-07 Interpretation and review of laboratory results Abnormal [facility] No Panel Informationon 12-07 Interpretation and review of laboratory results Abnormal [facility] Performed by: [facility], [address] [place] [address] CLIA ID: [id number] [facility] Interpretation and review of laboratory results Abnormal [facility] Performed by: [facility], [address] [place] [address] CLIA ID: [id number] [facility] Interpretation and review of laboratory results Abnormal [facility] Performed by: [facility], [address] [place] [address] CLIA ID: [id number] [facility] Basic metabolic 1998 panelon 12-06-2022 Anion gap [Moles/Vol] 2 mmol/L Low 3 - 13 mmol/L [facility] Calcium [Mass/Vol] 7.9 mg/dL Low 8.4 - 10. 4 mg/dL [facility] Chloride [Moles/Vol] 105 mmol/L 98 - 10 7 mmol/L [facility] CO2 [Moles/Vol] 26 mmol/L 22 - 30 mmol/L [facility] Creatinine [Mass/Vol] 0.68 mg/dL 0.52 - 1.04 mg/dL [facility] GFR/1.73 sq M.predicted MDRD (S/P/Bld) [Vol rate/Area] 88.7 mL/min/{1.73_m2} - PINF [facility] Comment on above: Calculation based on the Chronic Kidney Disease Epidemiology Collaboration (CKD-EPI) equation refit without adjustment for race Glucose [Mass/Vol] 169 mg/dL High 70 - 100 mg/dL [facility] Interpretation and review of laboratory results Abnormal [facility] Potassium [Moles/Vol] 3.5 mmol/L 3.5 - 5.1 mmol/L [facility] Sodium [Moles/Vol] 134 mmol/L Low 135 - 145 mmol/L [facility] Urea nitrogen [Mass/Vol] 18 mg/dL High 7 - 17 mg/dL [facility] CBC panel Auto (Bld)Ordered By: Donavan Hernandez on 12-06-2022 Erythrocyte distribution width (RBC) [Ratio] 13.7 % 11.5 - 14.5 % [facility] Hematocrit (Bld) [Volume fraction] 33.4 % Low 35.0 - 47.0 % [facility] Hemoglobin (Bld) [Mass/Vol] 11.1 g/dL Low 11.7 - 16.0 g/dL [facility] Interpretation and review of laboratory results Abnormal [facility] MCH (RBC) [Entitic mass] 29.7 pg 26.0 - 34.0 pg [facility] MCHC (RBC) [Mass/Vol] 33.2 % 32.0 - 36.0 % [facility] MCV (RBC) [Entitic vol] 89.5 fL 80.0 - 98.0 fL [facility] Platelet mean volume (Bld) [Entitic vol] 8.4 fL 7.4 - 12.4 fL [facility] Platelets (Bld) [#/Vol] 233 10*3/uL 140 - 440 10*3/uL [facility] RBC (Bld) [#/Vol] 3.73 10*6/uL Low 3.8 - 5.20 10*6/uL [facility] WBC (Bld) [#/Vol] 9.8 10*3/uL 3.6 - 10.7 10*3/uL [facility] Hemoglobin (Bld) [Mass/Vol]o n 12-06-2022 Hematocrit (Bld) [Volume fraction] 36.6 % 35.0 - 47.0 % [facility] Interpretation and review of laboratory results Normal [facility] Hematocrit (Bld) [Volume fraction] 34.3 % Low 35.0 - 47.0 % [facility] Interpretation and review of laboratory results Abnormal [facility] Hemoglobin (Bld) [Mass/Vol]O rdered By: Lizeth Mckeon on 12-06-2022 Hematocrit (Bld) [Volume fraction] 33.9 % Low 35.0 - 47.0 % [facility] Interpretation and review of laboratory results Abnormal [facility] Iron and Iron binding capaci ty panelon 12-06-2022 Interpretation and review of laboratory results Normal [facility] Iron [Mass/Vol] 87 ug/dL 37 - 170 ug/dL [facility] Iron binding capacity [Mass/Vol] 298 ug/dL 261 - 497 ug/dL [facility] Iron saturation [Mass fraction] 29 % 15 - 50 % [facility] Laboratory - Chemistry and C hemistry - challengeon 12-06-2022 Glucose [Mass/Vol] 183 mg/dL High 70 - 100 mg/dL [facility] Glucose [Mass/Vol] 258 mg/dL High 70 - 100 mg/dL [facility] Glucose [Mass/Vol] 238 mg/dL High 70 - 100 mg/dL [facility] Glucose [Mass/Vol] 160 mg/dL High 70 - 100 mg/dL [facility] Laboratory - Coagulationon 0 12-06-2022 aPTT Coag (PPP) [Time] 25.4 s 20.0 - 30.5 s [facility] INR Coag (PPP) [Relative time] 1.0 {INR} 0.9 - 1.1 [facility] Comment on above: Recommended Anticoag ulant Therapy: [...] 11.2 s 9.0 - 1 2.0 s [facility] Laboratory - Hematology and Cell countson 12-06-2022 Hemoglobin (Bld) [Mass/Vol] 12.0 g/dL 11.7 - 16.0 g/dL [facility] Hemoglobin (Bld) [Mass/Vol] 11.3 g/dL Low 11.7 - 16.0 g/dL [facility] Laboratory - Hematology and Cell countsOrdered By: Lizeth Mckeon on 12-06-2022 Hemoglobin (Bld) [Mass/Vol] 11.0 g/dL Low 11.7 - 16.0 g/dL [facility] No Panel Informationon 12-06 Interpretation and review of laboratory results Abnormal [facility] Performed by: [facility], [address] [facility] [address] CLIA ID: [id number] [facility] Interpretation and review of laboratory results Abnormal [facility] Performed by: [facility], [address] [facility] [address] CLIA ID: [id number] [facility] Interpretation and review of laboratory results Abnormal [facility] Performed by: [facility], [address] [facility] [address] CLIA ID: [id number] [facility] Interpretation and review of laboratory results Normal [facility] Interpretation and review of laboratory results Abnormal [facility] Performed by: [facility], [address] [facility], [facility] [address] CLIA ID: [id number] [facility] Basic metabolic 1998 panelon 12-05-2022 Anion gap [Moles/Vol] 5 mmol/L 3 - 13 mmol/L [facility] Calcium [Mass/Vol] 8.7 mg/dL 8.4 - 10. 4 mg/dL [facility] Chloride [Moles/Vol] 102 mmol/L 98 - 10 7 mmol/L [facility] CO2 [Moles/Vol] 29 mmol/L 22 - 30 mmol/L [facility] Creatinine [Mass/Vol] 0.91 mg/dL 0.52 - 1.04 mg/dL [facility] GFR/1.73 sq M.predicted MDRD (S/P/Bld) [Vol rate/Area] 64.3 mL/min/{1.73_m2} - PINF [facility] Comment on above: Calculation based on the Chronic Kidney Disease Epidemiology Collaboration (CKD-EPI) equation refit without adjustment for race Glucose [Mass/Vol] 260 mg/dL High 70 - 100 mg/dL [facility] Interpretation and review of laboratory results Abnormal [facility] Potassium [Moles/Vol] 4.0 mmol/L 3.5 - 5.1 mmol/L [facility] Sodium [Moles/Vol] 136 mmol/L 135 - 145 mmol/L [facility] Urea nitrogen [Mass/Vol] 26 mg/dL High 7 - 17 mg/dL [facility] Blood type and Crossmatch pa rodney (Bld)on 12-05-2022 ABO group Nom (Bld) O [facility] Blood group antibody screen GEL Ql Negative [facility] D Ag Ql (RBC) Positive [facility] h [facility] CBC W Auto Differential pane l (Bld)Ordered By: Clayton Lozano on 12-05-2022 Basophils (Bld) [#/Vol] 0.1 10*3/uL 0.0 - 0.2 10*3/uL [facility] Basophils/100 WBC (Bld) 0.7 % 0.0 - 2.0 % [facility] Eosinophils (Bld) [#/Vol] 0.2 10*3/uL 0.0 - 0.5 10*3/uL [facility] Eosinophils/100 WBC (Bld) 2.0 % 1.0 - 6.0 % [facility] Erythrocyte distribution width (RBC) [Ratio] 13.9 % 11.5 - 14.5 % [facility] Hematocrit (Bld) [Volume fraction] 39.3 % 35.0 - 47.0 % [facility] Hemoglobin (Bld) [Mass/Vol] 12.9 g/dL 11.7 - 16.0 g/dL [facility] Interpretation and review of laboratory results Abnormal [facility] Lymphocytes (Bld) [#/Vol] 1.8 10*3/uL 1.0 - 4.3 10*3/uL [facility] Lymphocytes/100 WBC (Bld) 14.3 % Low 20.0 - 40.0 % [facility] MCH (RBC) [Entitic mass] 29.5 pg 26.0 - 34.0 pg [facility] MCHC (RBC) [Mass/Vol] 32.8 % 32.0 - 36.0 % [facility] MCV (RBC) [Entitic vol] 89.8 fL 80.0 - 98.0 fL [facility] Monocytes (Bld) [#/Vol] 1.0 10*3/uL High 0.0 - 0.8 10*3/uL [facility] Monocytes/100 WBC (Bld) 7.6 % 2.0 - 10.0 % [facility] Neutrophils (Bld) [#/Vol] 9.4 10*3/uL High 1.8 - 7.0 10*3/uL [facility] Neutrophils/100 WBC (Bld) 75.4 % 40.0 - 80.0 % [facility] Nucleated RBC/100 WBC (Bld) [Ratio] 0.1 % [facility] Platelet mean volume (Bld) [Entitic vol] 8.6 fL 7.4 - 12.4 fL [facility] Platelets (Bld) [#/Vol] 271 10*3/uL 140 - 440 10*3/uL [facility] RBC (Bld) [#/Vol] 4.37 10*6/uL 3.8 - 5.20 10*6/uL [facility] WBC (Bld) [#/Vol] 12.5 10*3/uL High 3.6 - 10.7 10*3/uL [facility] CBC panel Auto (Bld)on 12-05 Erythrocyte distribution width (RBC) [Ratio] 13.7 % 11.5 - 14.5 % [facility] Hematocrit (Bld) [Volume fraction] 37.9 % 35.0 - 47.0 % [facility] Hemoglobin (Bld) [Mass/Vol] 12.3 g/dL 11.7 - 16.0 g/dL [facility] Interpretation and review of laboratory results Abnormal [facility] MCH (RBC) [Entitic mass] 29.2 pg 26.0 - 34.0 pg [facility] MCHC (RBC) [Mass/Vol] 32.4 % 32.0 - 36.0 % [facility] MCV (RBC) [Entitic vol] 90.1 fL 80.0 - 98.0 fL [facility] Platelet mean volume (Bld) [Entitic vol] 8.3 fL 7.4 - 12.4 fL [facility] Platelets (Bld) [#/Vol] 244 10*3/uL 140 - 440 10*3/uL [facility] RBC (Bld) [#/Vol] 4.21 10*6/uL 3.8 - 5.20 10*6/uL [facility] WBC (Bld) [#/Vol] 11.6 10*3/uL High 3.6 - 10.7 10*3/uL [facility] CT Abdomen and Pelvis W cont rast Anna 12-05-2022 The etiology of the symptoms is not certain. No extravasation of contrast visualized. Report Dictated on Electronically Signed By: Reece Chandra Electronically Signed Date/Time: 12/05/2022 3:55 PM EDT [employer] Patient Name: RADAH [facility]ANDOVAL : 1945 [id number] Exam Date/Time: 12/05/2022 15:39 Procedure: CT ABDOMEN [...] soft tissues. Abdominal wall:Ventral hernia fat only. [employer] Reece Chandra MD - 12/05/2022 Patient Name: RADHA SANDOVAL : 1945 [id number] Exam Date/Time: 12/05/2022 15:39 Procedure: CT ABDOMEN [...] visualized. Report Dictated on Electronically Signed By: Reece Chandra Electronically Signed Date/Time: 12/05/2022 3:55 PM EDT [facility] Radiology Study observation (narrative) [facility] alth CT Abdomen and Pelvis W cont rast IVOrdered By: Reece Chandra on 12-05-2022 [facility] [employer] Work Phone: Hemoglobin (Bld) [Mass/Vol]o n 12-05-2022 Interpretation and review of laboratory results Normal [facility] Hepatic function 2000 panelo n 12-05-2022 Albumin [Mass/Vol] 4.0 g/dL 3.5 - 5.0 g/dL [facility] ALP [Catalytic activity/Vol] 107 U/L 38 - 126 U/L [facility] ALT [Catalytic activity/Vol] 16 U/L 0 - 34 U/L [facility] AST [Catalytic activity/Vol] 25 U/L 15 - 46 U/L [facility] Bilirubin [Mass/Vol] 0.9 mg/dL 0.2 - 1 .3 mg/dL [facility] Bilirubin.conjugated [Mass/Vol] 0.0 mg/dL 0.0 - 0.3 mg/dL [facility] Protein [Mass/Vol] 7.2 g/dL 6.3 - 8.2 g/dL [facility] Laboratory - Chemistry and C hemistry - challengeon 12-05-2022 Glucose [Mass/Vol] 196 mg/dL High 70 - 100 mg/dL [facility] Glucose [Mass/Vol] 215 mg/dL High 70 - 100 mg/dL [facility] Lipase [Catalytic activity/Vol] 43 U/L 23 - 300 U/L [facility] Laboratory - Coagulationon 0 12-05-2022 aPTT Coag (PPP) [Time] 22.1 s 20.0 - 30.5 s [facility] INR Coag (PPP) [Relative time] 1.0 {INR} 0.9 - 1.1 [facility] Comment on above: Recommended Anticoag ulant Therapy: [...] 11.0 s 9.0 - 1 2.0 s [facility] Laboratory - Hematology and Cell countson 12-05-2022 Hemoglobin (Bld) [Mass/Vol] 12.2 g/dL 11.7 - 16.0 g/dL [facility] No Panel Informationon 12-05 Interpretation and review of laboratory results Abnormal [facility] Performed by: [facility], [address] [place] [id number] CLIA ID: [id number] [facility] Interpretation and review of laboratory results Normal [facility] Interpretation and review of laboratory results Abnormal [facility] Performed by: [facility], [address] [place] [id number] CLIA ID: [id number] [facility] Interpretation and review of laboratory results Normal [facility] XR CHEST (2 VW)on 09-09-2021 Patient Name: RADHA SANDOVAL Diagnostic Radiology ACCESSION EXAM DATE/TIME PROCEDURE ORDERING PROVIDER [id number] 09/09/2021 10:10 EDT CR Chest PA & LAT MD JOHN, SHIV AGRAWAL CPT code 26273 Reason For Exam (CR Chest PA & [...] infiltrate or effusion. Report Dictated on Workstation: [email or web address] --- Final --- Dictating Physician: MD HELTON YUN ROBERT Signed Date and Time: 09/09/2021 3:48 pm Signed by: MD HELTON YUN ROBERT Transcribed Date and Time: 09/09/2021 3:49 [facility] Donato Helton - 09/09/2021 Patient Name: RADHA SANDOVAL Diagnostic Radiology ACCESSION EXAM DATE/TIME PROCEDURE ORDERING PROVIDER [id number] 09/09/2021 10:10 EDT CR Chest PA & LAT MD LOPEZ DARRELL LEROY CPT code 50680 Reason For Exam (CR Chest PA & [...] infiltrate or effusion. Report Dictated on Workstation: [email or web address] --- Final --- Dictating Physician: MD SUNITHA, DONATO FUENTES Signed Date and Time: 09/09/2021 3:48 pm Signed by: MD SUNITHA, DONATO FUENTES Transcribed Date and Time: 09/09/2021 3:49 [facility] Work Phone: Radiology Study observation (narrative) [employer] Work Phone: XR CHEST (2 VW)Ordered By: Haven Helton on 09-09-2021 [employer] Work Phone: VL PVR Arterial Doppler Lwr w/o Exerciseon 08-25-2021 VL PVR Arterial Doppler Lwr w/o Exercise Patient Name: RAD[facility]OVAL [id number] Ultrasound ACCESSION EXAM DATE/TIME PROCEDURE ORDERING PROVIDER [id number] 08/25/2021 10:09 EST VL PVR Arterial Doppler [id number] -SOMMER CHATTERJEE Lwr w/o Exercise CPT code 81758 Reason For Exam (VL PVR Arterial Doppler Lwr w/o Exercise) PVD with ulcer of left leg Report [facility] -- Multilevel Lower Extremity Arterial Evaluation Report Patient Radha Sandoval : 1945 Study 08/25/2021 Name: Eduardo (75yrs) Date: Age: 75 Account: [id number] Gender: F Loc: BP: Ordering Physician: Sommer Chatterjee Sales Clerk: Clayton Lr RVT Interpreting Physician: Wicho Morales MD -- Location: [facility] -- Indications: PVD with ulcer. -- Conclusions [...] supine position. Images were obtained using a [employer] vascular ultrasound machine. -- Arterial pressure indices: [...] WICHO MORALES Cardiovascular ACCESSION EXAM DATE/TIME PROCEDURE [id number] 08/25/2021 10:09 EST VL PVR Arterial Doppler Lwr w/o Exercise CPT code 15967 Reason For Exam (VL PVR Arterial Doppler Lwr w/o Exercise) PVD with ulcer of left leg Report [facility] -- Multilevel Lower Extremity Arterial Evaluation Report Patient Radha Sandoval DOB: 1945 Study 08/25/2021 Name: Eduardo (75yrs) Date: Age: 75 Account: [id number] Gender: F Loc: BP: Cardiovascular Report Ordering Physician: Sommer Chatterjee Sales Clerk: Clayton Lr RVT Interpreting Physician: Wicho Morales MD -- Location: [facility] -- Indications: PVD with ulcer. -- Conclusions [...] PVR wave (more content not included)... Normal [facility] CULT/STAIN - AEROBIC AND KENNA Tyler 08-07-2021 [...] <= 2 S Amoxicillin/Clavulanic Acid(LAVINIA) R Normal [facility] Comment on above: Performed By: #### C CARINA #### [address] [id number] [id number] Culture, Anaerobic and Aerob icon 08-07-2021 Aerobic Culture Mixed skin amandeep present. No Pseudomonas aeruginosa isolated. No beta-hemolytic streptococcus isolated. Abnormal [facility] Culture Staphylococcus aureus Abnormal [facility] Aerobic Culture Few [facility] Aerobic Culture Citrobacter freundii Abnormal [facility] A[facility] Culture Few For serious infections outside of the urinary tract, third generation cephalosporins may not be effective, even if test results indicate the organism is sensitive. [facility] Anaerobic Culture No growth of anaerob es at 5 days. [facility] Gram Stain Result No polymorphonuclear cells/lpf. Rare gram positive cocci in clusters. [facility] Interpretation and review of laboratory results Abnormal [facility] Test Performed by [address] [place] [address] [facility] CR Chest PA/LATon 04-22-2021 CR Chest PA/LAT Patient Name: RADHA SANDOVAL Diagnostic Radiology ACCESSION EXAM DATE/TIME PROCEDURE ORDERING PROVIDER [id number] 04/22/2021 11:32 EDT CR Chest PA and LAT MD LOPEZ DARRELL LEROY CPT code 94727 Reason For Exam (CR Chest PA and [...] Transcribed Date and Time: 04/22/2021 11:47 Normal [facility] MG Breast Tomosynthesis Scr Blon 04-22-2021 MG Breast Tomosynthesis Scr Bl Patient Name: RADHA SANDOVAL Mammography ACCESSION EXAM DATE/TIME PROCEDURE ORDERING PROVIDER [id number] 04/22/2021 11:11 EDT MG Breast Tomosynthesis MD LOPEZ DARRELL BI Scr TANJA CPT code 01500 41436 Reason For Exam (MG Breast Tomosynthesis BI [...] images: BB's = Nipples; skin lesions Open [place] = Palpable Line = Scar 2D digital [...] in high risk clinic. A score of "Average Risk" indicates a score of less than 20%. [...] am Signed by: MD HELTON YUN ROBERT [facility] OT Bone Density DEXA [facility] 04-22-2021 OT Bone Density DEXA Axial Skeleton Patient Name: RADHA SANDOVAL Bone Density ACCESSION EXAM DATE/TIME PROCEDURE ORDERING PROVIDER [id number] 04/22/2021 10:45 EDT OT Bone Density DEXA MD JOHN, SHIV Axial Skeleton [place] CPT code 28268 Reason For Exam (OT Bone Density DEXA Axial Skeleton) menopause Report DXA BONE DENSITOMETRY: CLINICAL INDICATION: Asymptomatic post-menopausal status COMPARISON: None TECHNIQUE: Quantitative bone mineral densitometry of the hip and lumbar spine was performed with a dual energy x-ray observed absorptiometry device - [employer]. Regions of interest were obtained through [...] -2.5 or less plus fragility fracture indicates "severe osteoporosis." FINDINGS: Hip: Femoral neck Density: 0.644 g/cm2. [...] recommendations for prevention of bone loss include: 3630-1343 mg calcium intake per day for adults [...] and Follow-up. Christa [employer] Evidence-Based Summaries. [facility] [employer]. 2017 Bone Density Report Report Dictated on Final Dictating Physician: MD DELVALLE LAUREN B Signed Date and Time: 04/23/2021 8:00 am Signed by: MD DELVALLE LAUREN B Transcribed Date and Time: 04/23/2021 8:01 Normal [facility] [employer] [facility] ECHO Complete 2D W Doppler W ColorOrdered By: Shiv Lopez on 10-07-2020 TRANSTHORACIC ECHOCARDIOGRAM PATIENT: Radha Sandoval STUDY DATE: 10/07/2020 : 1945 AGE: 75 HT/WT: 170.2 cm (67 117.9 kg in) (259.4 lb) GENDER: F BP: 144 / 89 LOCATION: [facility] PATIENT [facility] STATUS: *ORDERING PHYSICIAN: * Shiv Lopez *READING PHYSICIAN: * Stuart Grier, *ASSISTANT COMMUNITY MANAGER: * Lizzette Dejesus MD RD, AE -- INDICATIONS: Localized edema (R60.0). -- [...] LV ID, ES (more content not included)... [facility] Work Phone: [facility] [employer] Incoming Cardiology Results From [facility]/[employer] - 10/07/2020 3:44 PM EDT TRANSTHORACIC ECHOCARDIOGRAM PATIENT: Radha Sandoval STUDY DATE: 10/07/2020 : 1945 AGE: 75 HT/WT: 170.2 cm (67 117.9 kg in) (259.4 lb) GENDER: F BP: 144 / 89 LOCATION: [facility] PATIENT [facility] STATUS: *ORDERING PHYSICIAN: * Shiv Lopez *READING PHYSICIAN: * Stuart Grier, *ASSISTANT COMMUNITY MANAGER: * Lizzette Dejesus MD RDCS, AE -- [...] LV end-diastolic volum (more content not included)... [facility] Phone: Echo Complete w/wo Contrasto n 10-07-2020 Echo Complete w/wo Contrast Patient Name: RADHA SANDOVAL Ultrasound ACCESSION EXAM DATE/TIME PROCEDURE ORDERING PROVIDER [id number] 10/07/2020 14:50 EDT Echo Complete w/wo MD JOHN, SHIV AGRAWAL Reason For Exam (Echo Complete w/wo Contrast) edema Report TRANSTHORACIC ECHOCARDIOGRAM PATIENT: Radha Sandoval STUDY DATE: 10/07/2020 : 1945 AGE: 75 HT/WT: 170.2 cm (67 117.9 kg in) (259.4 lb) GENDER: F BP: 144 / 89 LOCATION: [facility] PATIENT [facility] STATUS: *ORDERING PHYSICIAN: * Shiv Lopez *READING PHYSICIAN: * Stuart Grier, *ASSISTANT COMMUNITY MANAGER: * Lizzette Dejesus MD RDCS, AE -- [...] ED 0.31 (more content not included)... Normal [facility] [employer] [facility] Basic Metabolic Panelon 01-17 Anion gap [Moles/Vol] 10 mmol/L [place], [place] Calcium [Mass/Vol] 8.7 mg/dL 8.4 - 10. 4 mg/dL [place] Chloride [Moles/Vol] 101 mmol/L 98 - 10 7 mmol/L [place] CO2 [Moles/Vol] 27 mmol/L 22 - 30 mmol/L [place] Creatinine [Mass/Vol] 1.13 mg/dL 0.52 - 1.25 mg/dL [place] EGFR IF NonAfrican Algerian 46.9 mL/min >60 [place] Comment on above: Source- MDRD equatio n with creatinine calibration to IDMS(NKDEP) eGFR not recommended for drug dose adjustment GFR/1.73 sq M predicted among blacks MDRD (S/P/Bld) [Vol rate/Area] 56.8 mL/min/{1.73_m2} >60 [place] Glucose [Mass/Vol] 139 mg/dL High 70 - 100 mg/dL [place] Interpretation and review of laboratory results Abnormal [place] Potassium [Moles/Vol] 4.3 mmol/L 3.5 - 5.1 mmol/L [place] Sodium [Moles/Vol] 137 mmol/L 135 - 145 mmol/L [place] Urea nitrogen [Mass/Vol] 18 mg/dL 7 - 20 mg/dL [place] CBCon 02-01-2019 Erythrocyte distribution width (RBC) [Ratio] 13.4 % 11.5 - 14.5 % [place] Hematocrit (Bld) [Volume fraction] 35.1 % 35 - 47 % [place] Hemoglobin (Bld) [Mass/Vol] 11.8 g/dL 11.7 - 16 g/dL [place] MCH (RBC) [Entitic mass] 30.2 pg 26 - 34 pg [place] MCHC (RBC) [Mass/Vol] 33.8 % 32 - 36 % [place], [place] MCV (RBC) [Entitic vol] 89.4 fL 79 - 98 fL [place], [place] Platelet mean volume (Bld) [Entitic vol] 7.6 fL 7.4 - 10.4 fL [place] Platelets (Bld) [#/Vol] 419 10*3/uL 140 - 440 10*3/uL [place] RBC (Bld) [#/Vol] 3.92 10*6/uL 3.8 - 5.2 10*6/uL [place] WBC (Bld) [#/Vol] 9.4 10*3/uL 3.6 - 10.7 10*3/uL [place] CT CERVICAL SPINE WO LAURA Harmon 02-01-2019 [facility] Incoming Radiology Results From [facility] - 02/01/2019 7:24 PM EDT Patient Name: RADHA SANDOVAL ---CT--- Exam Date/Time 02/01/2019 18:57:[address] Spine Cervical w/o Contrast Ordering Physician MD CR, DUNCAN Accession Number [id number] CPT4 Codes 94537 () Reason For Exam NECK PAIN FOLLOWING [...] NELSON Transcribed Date and Time: 02/01/2019 7:12 [place] Patient Name: RADHA SANDOVAL ---CT--- Exam Date/Time 02/01/2019 18:57:[address] Spine Cervical w/o Contrast Ordering Physician MD CR, DUNCAN Accession Number [id number] CPT4 Codes 28861 () Reason For Exam NECK PAIN FOLLOWING [...] NELSON Transcribed Date and Time: 02/01/2019 7:12 [place], [place] CT HEAD WO CONTRASTon 2018 [facility] Incoming Radiology Results From [facility] - 02/01/2019 7:40 PM EDT Patient Name: RADHA SANDOVAL ---CT--- Exam Date/Time 02/01/2019 18:57:[address] Head or Brain w/o Contrast Ordering Physician MD CR, DUNCAN Accession Number [id number] CPT4 Codes 95017 () Reason For Exam HEAD INJURY MILD [...] R Transcribed Date and Time: 02/01/2019 7:35 [place] Patient Name: RADHA SANDOVAL ---CT--- Exam Date/Time 02/01/2019 18:57:[address] Head or Brain w/o Contrast Ordering Physician MD CR, DUNCAN Accession Number [id number] CPT4 Codes 35125 () Reason For Exam HEAD INJURY MILD [...] R Transcribed Date and Time: 02/01/2019 7:35 [place] Ethanolon 02-01-2019 Ethanol Lvl <0.010 0 - 0.01 g/dL [place] Comment on above: NOTE: This result is for medical treatment only. Analysis performed using non-forensic procedures. Otheron 02-01-2019 Test Performed by [facility], [address] [place] [id number] [place] [address] Protime/INR & PTTon 02-02-20 19 aPTT Coag (Bld) [Time] 23.9 s 20 - 30.5 s M [place], [place] Comment on above: NOTE: The therapeuti c time for Heparin anticoagulation, based on Xa activity inhibition, is an APTT of 46-80 seconds. INR Coag (PPP) [Relative time] 0.9 {INR} [place], [place] Comment on above: Recommended Anticoag ulant [...] [Time] 9.9 s 9 - 12 s [place], [place] Comment on above: . TYPE AND SCREENon 02-01-2019 Sodium [Moles/Vol] Positive [place] Comment on above: Test Performed by [facility], [address] [place] [address] Sodium [Moles/Vol] O [place] Sodium [Moles/Vol] Negative [place] Comment on above: Test Performed by [facility], [address] [place] [address] XR CHEST PORTABLEon 02-02-20 19 [facility] Incoming Radiology Results From [facility] - 02/01/2019 7:15 PM EDT Patient Name: RADHA SANDOVAL ---Diagnostic Radiology--- Exam Date/Time 02/01/2019 19:11:56 EDT Exam CR Chest Portable Ordering Physician MD HANKINS ALEKSANDAR Accession Number [id number] CPT4 Codes 17065 () Reason For Exam TRAUMA, FALL Report [...] and Time: 02/01/2019 7:14 pm Signed by: WOHLWEND, MD, REECE R Transcribed Date and Time: 02/01/2019 7:13 [place] Patient Name: RADHA SANDOVAL ---Diagnostic Radiology--- Exam Date/Time 02/01/2019 19:11:56 EDT Exam CR Chest Portable Ordering Physician MD HANKINS ALEKSANDAR Accession Number [id number] CPT4 Codes 77056 () Reason For Exam TRAUMA, FALL Report [...] R Transcribed Date and Time: 02/01/2019 7:13 [place] XR PELVIS (1-2 VW)on Patient Name: RADHA SANDOVAL ---Diagnostic Radiology--- Exam Date/Time 02/01/2019 19:11:56 EDT Exam CR Pelvis 1 or 2 Views Ordering Physician MD HANKINS ALEKSANDAR Accession Number [id number] CPT4 Codes 71048 () Reason For Exam TRAUMA, FALL Report [...] R Transcribed Date and Time: 02/01/2019 7:12 [place] [facility] Incoming Radiology Results From [facility] - 02/01/2019 7:14 PM EDT Patient Name: RADHA SANDOVAL ---Diagnostic Radiology--- Exam Date/Time 02/01/2019 19:11:56 EDT Exam CR Pelvis 1 or 2 Views Ordering Physician MD HANKINS ALEKSANDAR Accession Number [id number] CPT4 Codes 78876 () Reason For Exam TRAUMA, FALL Report [...] R Transcribed Date and Time: 02/01/2019 7:12 [place] Vital Signs Date Time Vital Sign Value Performing Clinician Ryan goldberg 03-18-2023 11:02-0400 Body temperature 98.7 [degF] [facility] 03-18-2023 11:02-0400 Diastolic blood pressure 50 mm[Hg] [facility] 03-18-2023 11:02-0400 Heart rate 74 /min [facility] 03-18-2023 11:02-0400 Respiratory rate 18 /min [facility] 03-18-2023 11:02-0400 SaO2% (BldA) [Mass fraction] 96 % [facility] 03-18-2023 11:02-0400 Systolic blood pressure 142 mm[Hg] [facility] 03-15-2023 14:20-0400 Body height 170.18 cm [facility] 03-15-2023 14:20-0400 Body weight 113.21 kg [facility] 03-14-2023 09:34-0400 Body mass index (BMI) [Ratio] 39.1 kg/m2 [facility] 03-03-2023 07:40-0400 Body temperature 98.1 [degF] Alexander Whaley MD Work Phone: [facility] [employer] 03-03-2023 07:40-0400 Diastolic blood pressure 81 mm[Hg] Alexander Whaley MD Work Phone: [facility] [employer] 03-03-2023 07:40-0400 Heart rate 93 /min Alexander Whaley MD Work Phone: [facility] 03-03-2023 07:40-0400 Respiratory rate 16 /min Alexander Whaley MD Work Phone: [facility] 03-03-2023 07:40-0400 SaO2% (BldA) [Mass fraction] 94 % Alexander Whaley MD Work Phone: [facility] [employer] 03-03-2023 07:40-0400 Systolic blood pressure 154 mm[Hg] Alexander Whaley MD Work Phone: [facility] [employer] 02-27-2023 14:44-0400 Body mass index (BMI) [Ratio] 36.65 kg/m2 Katia Bridenthal FRUIT SHIPPER - CHIEF INFORMATION SECURITY OFFICER Work Phone: [facility] [employer] 02-27-2023 14:44-0400 Body temperature 99.1 [degF] Katia Bridenthal FRUIT SHIPPER - CHIEF INFORMATION SECURITY OFFICER Work Phone: [facility] [employer] 02-27-2023 14:44-0400 Body weight 106.14 kg Katia Bridenthal FRUIT SHIPPER - CHIEF INFORMATION SECURITY OFFICER Work Phone: [facility] [employer] 02-27-2023 14:44-0400 Diastolic blood pressure 72 mm[Hg] Katia Bridenthal FRUIT SHIPPER - CHIEF INFORMATION SECURITY OFFICER Work Phone: [facility] [employer] 02-27-2023 14:44-0400 Heart rate 93 /min Katia Bridenthal FRUIT SHIPPER - CHIEF INFORMATION SECURITY OFFICER Work Phone: [facility] [employer] 02-27-2023 14:44-0400 Respiratory rate 20 /min Katia Bridenthal FRUIT SHIPPER - CHIEF INFORMATION SECURITY OFFICER Work Phone: [employer] 02-27-2023 14:44-0400 SaO2% (BldA) [Mass fraction] 92 % Katia Bridenthal FRUIT SHIPPER - CHIEF INFORMATION SECURITY OFFICER Work Phone: [employer] 02-27-2023 14:44-0400 Systolic blood pressure 136 mm[Hg] Katia Bridenthal FRUIT SHIPPER - CHIEF INFORMATION SECURITY OFFICER Work Phone: [employer] 02-15-2023 13:07-0400 Body height 170.2 cm Lenard Magallanes DO Work Phone: [employer] 02-15-2023 13:07-0400 Body mass index (BMI) [Ratio] 35.71 kg/m2 Lenard Magallanes DO Work Phone: [employer] 02-15-2023 13:07-0400 Body temperature 98.6 [degF] Lenard Magallanes DO Work Phone: [employer] 02-15-2023 13:07-0400 Body weight 103.42 kg Lenard Magallanes DO Work Phone: [employer] 02-15-2023 13:07-0400 Diastolic blood pressure 76 mm[Hg] Lenard Tomase DO Work Phone: [employer] 02-15-2023 13:07-0400 Heart rate 75 /min Lenard Magallanes DO Work Phone: [employer] 02-15-2023 13:07-0400 Respiratory rate 20 /min Lenard Magallanes DO Work Phone: [employer] 02-15-2023 13:07-0400 Systolic blood pressure 141 mm[Hg] Lenardbarbara Tomase DO Work Phone: [employer] 02-07-2023 11:18-0400 Diastolic blood pressure 72 mm[Hg] Katia Bridenthal FRUIT SHIPPER - CHIEF INFORMATION SECURITY OFFICER Work Phone: [employer] 02-07-2023 11:18-0400 Systolic blood pressure 146 mm[Hg] Katia Bridenthal FRUIT SHIPPER - CHIEF INFORMATION SECURITY OFFICER Work Phone: [employer] 02-07-2023 10:39-0400 Body mass index (BMI) [Ratio] 40.34 kg/m2 Katia Bridenthal FRUIT SHIPPER - CHIEF INFORMATION SECURITY OFFICER Work Phone: [facility] [employer] 02-07-2023 10:39-0400 Body temperature 97.3 [degF] Katia Bridenthal FRUIT SHIPPER - CHIEF INFORMATION SECURITY OFFICER Work Phone: [facility] [employer] 02-07-2023 10:39-0400 Body weight 109.95 kg Katia Bridenthal FRUIT SHIPPER - CHIEF INFORMATION SECURITY OFFICER Work Phone: [facility] [employer] 02-07-2023 10:39-0400 Heart rate 88 /min Katia Gregenthal FRUIT SHIPPER - CHIEF INFORMATION SECURITY OFFICER Work Phone: [facility] [employer] 02-07-2023 10:39-0400 Respiratory rate 20 /min Katia Bridenthal FRUIT SHIPPER - CHIEF INFORMATION SECURITY OFFICER Work Phone: [facility] [employer] 02-07-2023 10:39-0400 SaO2% (BldA) [Mass fraction] 96 % Katia Bridenthal FRUIT SHIPPER - CHIEF INFORMATION SECURITY OFFICER Work Phone: [facility] [employer] 12-07-2022 10:03-0400 Diastolic blood pressure 80 mm[Hg] Anusha Velarde MD Work Phone: [facility] [employer] 12-07-2022 10:03-0400 Heart rate 72 /min Anusha Velarde MD Work Phone: [facility] [employer] 12-07-2022 10:03-0400 Respiratory rate 18 /min Anusha Velarde MD Work Phone: [employer] 12-07-2022 10:03-0400 SaO2% (BldA) [Mass fraction] 96 % Anusha Velarde MD Work Phone: [facility] [employer] 12-07-2022 10:03-0400 Systolic blood pressure 162 mm[Hg] Anusha Velarde MD Work Phone: [facility] [employer] 12-07-2022 09:50-0400 Body temperature 97.2 [degF] Anusha Velarde MD Work Phone: [facility] [employer] 12-07-2022 08:49-0400 Body height 165.1 cm Anusha Velarde MD Work Phone: [employer] 12-07-2022 08:49-0400 Body mass index (BMI) [Ratio] 41.6 kg/m2 Anusha Velarde MD Work Phone: [facility] [employer] 12-07-2022 08:49-0400 Body weight 113.4 kg Anusha Velarde MD Work Phone: [employer] 06-30-2022 08:47-0500 Diastolic blood pressure 62 mm[Hg] Shiv Lopez MD Work Phone: [employer] 06-30-2022 08:47-0500 Heart rate 80 /min Shiv Lopez MD Work Phone: [employer] 06-30-2022 08:47-0500 Systolic blood pressure 125 mm[Hg] Shiv Lopez MD Work Phone: [employer] 06-30-2022 08:16-0500 Body height 165.7 cm Shiv Lopez MD Work Phone: [employer] 06-30-2022 08:16-0500 Body mass index (BMI) [Ratio] 39.96 kg/m2 Shiv Lopez MD Work Phone: [employer] 06-30-2022 08:16-0500 Body weight 109.77 kg Shiv Lopez MD Work Phone: [employer] Encounters Encounter Date Encounter Type Care Provider Facility Start: 01-09-2025 ambulatory Melissa Gudla OLS Facili ty:[facility] Start: 12-26-2024 ambulatory Melissa Gudla OLS Facili ty:[facility] Start: 12-24-2024 ambulatory Melissa Gudla OLS Facili ty:[facility] Start: 12-12-2024 ambulatory Melissa Gudla OLS Facili ty:[facility] Start: 11-28-2024 End: 11-28-[address] Melissa Reed MD [facility] Work Phone: Start: 11-28-2024 End: 11-28-[address] Melissa Reed MD -[facility] Work Phone: Start: 11-28-[address] Melissa Reed MD -[facility] Work Phone: Start: 11-28-2024 End: 11-28-2024 ambulatory [facility] Facility:[facility] Start: 11-14-2024 ambulatory [facility] Facility:[facility] Start: 11-14-[address] Melissa Reed MD -[facility] Work Phone: Start: 11-08-2024 End: 11-08-[address] Melissa Reed MD [facility] Work Phone: Start: 11-08-2024 End: 11-08-[address] Melissa Reed MD -[facility] Work Phone: Start: 11-08-2024 End: 11-08-[address] [facility] Start: 10-17-2024 End: 10-17-[address] Melissa Reed MD -[facility] Work Phone: Start: 10-17-2024 End: 10-17-2024 ambulatory [facility] Facility:[facility] Start: 10-03-2024 End: 10-03-[address] Shiv Lopez MD Work Phone: [facility] Work Phone: Start: 10-03-2024 End: 10-03-[address] Melissa Reed MD -[facility] Work Phone: Start: 10-03-2024 End: 10-03-2024 ambulatory Melissa THOMPSON Facility:[facility] Start: 09-23-2024 ambulatory Melissa THOMPSON Facili ty:[facility] Start: 09-23-[address] Melissa Reed MD -[facility] Work Phone: Start: 09-19-2024 End: 09-19-[address] Shiv Lopez MD Work Phone: [facility] Work Phone: Start: 09-19-2024 End: 09-19-[address] Melissa Reed MD -[facility] Work Phone: Start: 09-19-[address] Melissa Reed MD -[facility] Work Phone: Start: 09-19-2024 End: 09-19-2024 ambulatory Melissa THOMPSON Facility:[facility] Start: 09-05-2024 End: 09-05-[address] Shiv Lopez MD Work Phone: [facility] Work Phone: Start: 09-05-2024 End: 09-05-[address] Melissa Reed MD -[facility] Work Phone: Start: 09-05-[address] Melissa Reed MD -[facility] Work Phone: Start: 09-05-2024 End: 09-05-2024 ambulatory Melissabridgette Reed Facility:[facility] Start: 08-22-2024 End: 08-22-[address] Shiv Lopez MD Work Phone: [facility] Work Phone: Start: 08-22-2024 End: 08-22-[address] Melissa Reed MD -[facility] Work Phone: Start: 08-22-2024 End: 08-22-2024 ambulatory Melissa THOMPSON Facility:[facility] Start: 08-08-2024 ambulatory Melissa THOMPSON Facili ty:[facility] Start: 08-08-[address] Melissa Reed MD -[facility] Start: 08-06-2024 ambulatory Melissa THOMPSON Facili ty:[facility] Start: 08-06-[address] Melissa Reed MD -[facility] Work Phone: Start: 07-31-2024 End: 07-31-[address] Gypsy Argueta MD -Radiology, [facility] Work Phone: Start: 07-31-2024 End: 07-31-2024 ambulatory Gypsy Argueta Facility:[facility] Start: 07-25-2024 ambulatory [facility] Facility :[facility] Start: 07-25-[address] Melissa Reed MD -[facility] Work Phone: Start: 07-11-2024 ambulatory [facility] Facility :[facility] Start: 07-11-[address] Melissa Reed MD -[facility] Work Phone: Start: 06-27-2024 End: 06-27-[address] Melissa Reed MD -[facility] Work Phone: Start: 06-27-2024 End: 06-27-2024 ambulatory [facility] Facility:[facility] Start: 06-13-2024 ambulatory [facility] Facility :[facility] Start: 06-13-[address] Melissa Reed MD -[facility] Work Phone: Start: 05-29-2024 End: 05-29-[address] Melissa Reed MD -[facility] Work Phone: Start: 05-29-2024 End: 05-29-2024 ambulatory Shiv John Facility:[facility] Start: 05-15-2024 End: 05-15-2024 ambulatory Shiv John Facility:[facility] Start: 05-01-2024 End: 05-01-2024 ambulatory Shiv John Facility:[facility] Start: 04-17-2024 End: 04-17-2024 ambulatory Shiv John Facility:[facility] Start: 04-04-2024 End: 04-04-2024 ambulatory Shiv John Facility:[facility] Start: 04-01-2024 End: 04-01-2024 ambulatory Shiv John Facility:[facility] Start: 03-20-2024 End: 03-20-2024 ambulatory Shiv John Facility:[facility] Start: 03-06-2024 End: 03-06-2024 ambulatory Shiv John Facility:[facility] Start: 02-20-2024 ambulatory Shiv John Facility :[facility] Start: 02-05-2024 End: 02-05-2024 ambulatory Shiv John Facility:[facility] Start: 01-24-2024 End: 01-24-2024 ambulatory Shiv John Facility:[facility] Start: 01-22-2024 ambulatory Shiv John Facility :[facility] Start: 12-29-2023 End: 12-29-2023 ambulatory Felicia Garcia [facility] Start: 09-29-2023 End: 09-29-2023 ambulatory [facility] Work Phone: Start: 09-29-2023 End: 09-29-2023 Departed Referred [facility] Work Phone: Start: 09-14-2023 End: 09-14-2023 ambulatory [facility] Work Phone: Start: 09-14-2023 End: 09-14-2023 Departed Referred [facility] Work Phone: Start: 08-31-2023 End: 08-31-2023 ambulatory [facility] Work Phone: Start: 08-31-2023 End: 08-31-2023 Departed Referred [facility] Work Phone: Start: 08-17-2023 End: 08-17-2023 ambulatory [facility] Work Phone: Start: 08-17-2023 End: 08-17-2023 Departed Referred [facility] Work Phone: Start: 08-14-2023 End: 08-14-2023 Departed [facility]erred [facility] Work Phone: Start: 07-31-2023 End: 07-31-2023 Departed Referred [facility] Work Phone: Start: 07-17-2023 End: 07-17-2023 Departed [facility]erred [facility] Work Phone: Start: 07-03-2023 End: 07-03-2023 Departed Referred [facility] Work Phone: Start: 07-03-2023 Registered Referred [facility] Work Phone: Start: 06-23-2023 End: 06-23-2023 ambulatory [facility] Work Phone: Start: 06-23-2023 End: 06-23-2023 Departed [facility] Start: 06-20-2023 End: 06-20-2023 ambulatory [facility] Work Phone: Start: 06-20-2023 End: 06-20-2023 Departed Referred [facility] Work Phone: Start: 06-20-2023 Registered Referred [facility] Work Phone: Start: 05-10-2023 End: 05-10-2023 ambulatory [facility] Work Phone: Start: 05-10-2023 End: 05-10-2023 Departed [facility] Start: 05-10-2023 Registered Referred [facility] Start: 05-01-2023 End: 05-01-2023 ambulatory [facility] Work Phone: Start: 05-01-2023 End: 05-01-2023 Departed [facility] Start: 04-04-2023 End: 04-04-2023 ambulatory [facility] Work Phone: Start: 04-04-2023 End: 04-04-2023 Departed [facility] Start: 03-20-2023 End: 03-20-2023 Departed [facility] Start: 03-03-2023 End: 03-18-2023 Evaluation and management of inpatient [facility] Start: 02-28-2023 End: 03-03-2023 ambulatory Imelda Mann RN [facility] Clinical Communication Start: 02-28-2023 Patient encounter procedure [facility] Start: 02-28-2023 End: 03-03-2023 Emergency department patient visit Alexander Whaley MD Work Phone: [facility]G Comment on above: LING (acute kidney in jury) (CMS/HCC) (HCC) (Primary Dx); Pyelonephritis; Polypharmacy; Insomnia, unspecified type; Pressure ulcer of right buttock, stage 3 (HCC) Start: 02-27-2023 End: 02-27-2023 ambulatory SHIV [facility] Start: 02-27-2023 End: 02-27-2023 Office outpatient visit 25 minutes Katia Granados FRUIT SHIPPER - CHIEF INFORMATION SECURITY OFFICER Work Phone: [facility] Comment on above: Diabetes mellitus du e to underlying condition with stage 3 chronic kidney disease, with long-term current use of insulin, unspecified whether stage 3a or 3b CKD (HCC) (Primary Dx); Urinary tract infection symptoms; Primary hypertension; Hypokalemia; Acquired hypothyroidism; History of GI bleed; Acute cystitis with hematuria; Wound of right buttock, subsequent encounter; Chronic renal impairment, stage 3b (HCC); Diarrhea, unspecified type Start: 02-23-2023 ambulatory Nan Bush RN [facility] Cl inical Communication Start: 02-23-2023 Patient encounter procedure Nan Bush RN [facility] Clinical Communication Start: 02-15-2023 End: 02-15-2023 Subsequent hospital visit by physician Lenard Magallanes DO Work Phone: [facility] Comment on above: Arrived Start: 02-15-2023 End: 02-15-2023 ambulatory LENARD MAGALLANES [facility] Start: 02-07-2023 End: 02-07-2023 Office outpatient visit 15 minutes Katia Granados FRUIT SHIPPER - CHIEF INFORMATION SECURITY OFFICER Work Phone: [facility] Comment on above: Wound of right butto ck, subsequent encounter (Primary Dx); Chronic left shoulder pain Start: 02-07-2023 End: 02-07-2023 ambulatory SHIV LOPEZ [facility] Start: 01-25-2023 ambulatory Colette Poole RN [facility] Clinical Communication Start: 01-25-2023 Patient encounter procedure Colette Poole RN [facility] Clinical Communication Start: 01-12-2023 Refill Katia ley FRUIT SHIPPER - CHIEF INFORMATION SECURITY OFFICER Work Phone: [facility] Comment on above: Vitamin D deficiency ; Acquired hypothyroidism; Chronic left shoulder pain; Restless legs syndrome (RLS) Start: 12-08-2022 Refill Katia ley FRUIT SHIPPER - CHIEF INFORMATION SECURITY OFFICER Work Phone: [facility] Comment on above: Hyperlipidemia with target LDL less than 70; Acquired hypothyroidism; Chronic left shoulder pain Start: 12-05-2022 ambulatory Sruthi Burns RN [facility] Clinical Communication Start: 12-05-2022 Patient encounter procedure Sruthi Burns RN [facility] Clinical Communication Start: 12-05-2022 End: 12-07-2022 Emergency department patient visit Anusha Velarde MD Work Phone: [facility]G Comment on above: Acute lower GI bleed ing (Primary Dx); Rectal bleeding Start: 10-05-2022 Telephone encounter Shiv James MD Work Phone: [facility] Comment on above: Results Start: 08-12-2022 Refill Shiv Lopez MD Work Phone: [facility] Clinical Communication Start: 07-26-2022 Refill Shiv Lopez MD Work Phone: [facility] Start: 07-18-2022 Refill Katiajareth Montero thal FRUIT SHIPPER - CHIEF INFORMATION SECURITY OFFICER Work Phone: [facility] Comment on above: Vitamin D deficiency Start: 07-11-2022 Refill Shiv Lopez MD Work Phone: [facility] Start: 07-08-2022 ambulatory Christine Haas RN [facility] Clin ical Communication Start: 07-08-2022 Patient encounter procedure Christine Haas RN [facility] Clinical Communication Comment on above: Trauma (Primary Dx) Start: 07-07-2022 Telephone encounter Devendra ramos MD Work Phone: [facility] [place] Comment on above: Reschedule (07/08/22 ) Start: 06-30-2022 End: 06-30-2022 Office outpatient visit 25 minutes Shiv Lopez MD Work Phone: [facility] Comment on above: Uncontrolled type 2 diabetes [...] by physician Shiv Lopez MD Work Phone: [facility] Radiology Comment on above: Dyspnea on exertion Start: 08-25-2021 End: 08-25-2021 Subsequent hospital visit by physician Sommer Chatterjee DPM Work Phone: [facility] Start: 11-05-2020 End: 11-05-2020 Subsequent hospital visit by physician Shiv Lopez MD Work Phone: [facility] [place] [facility] Start: 10-07-2020 End: 10-07-2020 Subsequent hospital visit by physician Shiv Lopez MD Work Phone: [facility] Comment on above: Localized edema Start: 09-29-2020 End: 09-29-2020 Subsequent hospital visit by physician Shiv Lopez Work Phone: [facility] [place] [facility] Start: 09-08-2020 End: 09-08-2020 Subsequent hospital visit by physician Shiv Lopez Work Phone: [facility] [place] [facility] Start: 09-01-2020 End: 09-01-2020 Subsequent hospital visit by physician Roseanne Roberts Work Phone: [facility] Start: 08-18-2020 End: 08-18-2020 Subsequent hospital visit by physician Shiv Lopez Work Phone: [facility] [place] [facility] Start: 07-31-2020 End: 07-31-2020 Subsequent hospital visit by physician Shiv Lopez Work Phone: [facility] [place] [facility] Start: 02-01-2019 End: 02-01-2019 Emergency department patient visit Dick Ace Work Phone: [facility] Emergency Dept Comment on above: Injury of head, init ial encounter (Primary Dx); Laceration of scalp, initial encounter; Strain of neck muscle, initial encounter Start: 01-18-2019 End: 01-18-2019 Subsequent hospital visit by physician Darya Berrios Work Phone: [facility] Start: 12-21-2016 Ambulatory Shiv [facility] Procedures Date Procedure Procedure Detail Performing Clinician Start: 09-23-[address] Stevan Lopez MD Work Phone: Start: 09-23-2024 Urnls dip stick/tabl et reagent auto microscopy Dr. Melissa Reed MD Start: 09-05-[address] Stevan Lopez MD Work Phone: Start: 09-05-2024 Urnls dip stick/tabl et reagent auto microscopy Dr. Melissa Reed MD Start: 08-08-2024 Measurement of renal function Dr. Melissa Reed MD Comment on above: GFR Calc Start: 08-06-2024 Urnls dip stick/tabl et reagent auto microscopy Dr. Melissa Reed MD Start: 08-06-[address] Stevan Lopez [...] 02-28-2023 Culture bacterial quanttative colony count urine Alexander Whaley MD Work Phone: Start: 02-28-2023 Urinalysis complete panel - Urine Alexander Whaley MD Work Phone: Start: 02-28-2023 Ct abdomen & pelvis w/o contrast material Alexander Whaley MD Work Phone: Start: 02-28-2023 Comprehensive metabo lic panel Alexander Whaley MD Work Phone: Start: 02-27-2023 Urnls dip stick/tabl et rgnt non-auto w/o micrscp Katia Bridenthal FRUIT SHIPPER - CHIEF INFORMATION SECURITY OFFICER Work Phone: Start: 02-27-2023 Glucose [Mass/volume ] in Serum or Plasma Katia Bridenthal FRUIT SHIPPER - CHIEF INFORMATION SECURITY OFFICER Work Phone: Start: 02-27-2023 Thyrotropin [Units/v olume] [...] 02-01-2019 Radiologic exam ches t single view [facility] [employer] Work Phone: Start: 02-01-2019 Radiologic examinati on pelvis 1/2 views Duncan [facility]ube Work Phone: Start: 02-01-2019 Ct cervical spine w/ o contrast material [facility] [employer] Work Phone: Start: 02-01-2019 Ct head/brain w/o co ntrast material Duncan Geube Work Phone: Start: 02-01-2019 Blood typing serologic [...] Urine Culture [facility] Start: 09-23-2024 [facility] Start: 09-05-2024 Urine culture Urine Culture [facility] Start: 09-05-2024 [facility] Start: 02-28-2024 Thyroid stimulating hormone measurement TSH Level [facility] Start: 02-18-2024 Influenza vaccination Influenza Vacc ine (#1) [facility] Start: 02-08-2024 COVID-19 Vaccine (3 - Booster for Brian series) COVID-19 Vaccine (3 - Booster for Brian series) [facility] Comment on above: Postponed from 06/21 (Patient Refused) Start: 02-08-2024 DTaP/Tdap/Td Vaccine s (1 - Tdap) DTaP/Tdap/Td Vaccines (1 - Tdap) [facility] Comment on above: Postponed from 08/27 (Patient Refused) Start: 02-08-2024 Hepatitis C screening Hepatitis C Sc reening [facility] Comment on above: Postponed from 08/27 (Patient Refused) Start: 02-08-2024 Zoster Vaccines (2 o f 2) Zoster Vaccines (2 of 2) [facility] Comment on above: Postponed from 05/26 (Patient Refused) Start: 08-10-2023 Depression Monitoring Depression Mon itoring [facility] Start: 08-10-2023 Depresssion Monitoring Depresssion M onitoring [facility] Start: 06-30-2023 Lip[address] Lipid Panel [facility] Start: 06-30-2023 Thyroid stimulating hormone measurement TSH Level [facility] Start: 06-30-2023 Urine screening for protein Diabetes: Urine Protein Screening [facility] Start: 06-19-2023 Medicare Advantage Annual Wellness Visit Medicare Advantage Annual Wellness Visit [facility] Start: 06-14-2023 [facility]resss[facility] Start: 04-27-2023 End: 04-27-2023 Patient encounter procedure [facility] Start: 04-27-2023 [facility] Start: 04-08-2023 Blood chemistry [facility] Start: 04-01-2023 Blood chemistry [facility] Start: 03-25-2023 Blood chemistry [facility] Start: 03-20-2023 SARS-CoV-2 (COVID-19 ) Ag [Presence] in Respiratory specimen by Rapid immunoassay [facility] Start: 03-19-2023 Development of care plan [facility] Start: 03-18-2023 Patient discharge [facility] Start: 03-17-2023 End: 03-17-2023 [facility] Start: 03-17-2023 Microbial culture, routine Wound Culture [facility] Start: 03-17-2023 Bacterial nucleic ac id assay [facility] Start: 03-13-2023 [facility] Start: 03-06-2023 Referral to fall intern [facility] Start: 03-04-2023 Development of care plan [facility] Start: 03-03-2023 Admission procedure [facility] Start: 03-03-2023 Measuring intake and output [facility] Start: 03-03-2023 Patient referral to dietitian [facility] Start: 03-03-2023 Referral to occupational therapist [facility] Start: 03-03-2023 Referral to service [facility] Start: 03-03-2023 Vital signs measurements [facility] Start: 03-03-2023 [facility] Start: 03-03-2023 Verification routine [facility] Start: 03-03-2023 End: 03-03-2023 Patient encounter procedure [facility] Start: 03-03-2023 Patient referral to dietitian [facility] Start: 02-27-2023 End: 02-28-2024 Bacteria identified in Urine by Culture Urine culture (clean catch) Microbiology Routine Urinary tract infection symptoms Expected: 02/27/2023 (Approximate), Expires: 02/28/2024 [facility] [employer] Comment on above: Expected: 02/27/2023 (Approximate), Expires: 02/28/2024 Start: 02-27-2023 End: 02-28-2024 CBC W Auto Differential panel - Blood CBC auto differential Lab Routine History of GI bleed Expected: 02/27/2023 (Approximate), Expires: 02/28/2024 [facility] Comment on above: Expected: 02/27/2023 (Approximate), Expires: 02/28/2024 Start: 02-27-2023 End: 02-28-2024 Comprehensive metabolic 1998 panel - Serum or Plasma Comprehensive metabolic panel Lab Routine 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, with long-term current use of insulin, unspecified whether stage 3a or 3b CKD (HCC) Primary hypertension Hypokalemia Expected: 02/27/2023 (Approximate), Expires: 02/28/2024 [facility] Work Phone: Comment on above: Expected: 02/27/2023 (Approximate), Expires: 02/28/2024 Start: 02-27-2023 End: 02-28-2024 Magnesium [Mass/volume] in Serum or Plasma Magnesium Lab Routine 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, with long-term current use of insulin, unspecified whether stage 3a or 3b CKD (HCC) Hypokalemia Expected: 02/27/2023 (Approximate), Expires: 02/28/2024 [facility] Comment on above: Expected: 02/27/2023 (Approximate), Expires: 02/28/2024 Start: 02-27-2023 End: 02-28-2024 Thyrotropin [Units/volume] in Serum or Plasma TSH Lab Routine Acquired hypothyroidism Expected: 02/27/2023 (Approximate), Expires: 02/28/2024 [facility] Comment on above: Expected: 02/27/2023 (Approximate), Expires: 02/28/2024 Start: 02-27-2023 End: 02-27-2023 Patient encounter procedure 02/27/2023 1:00 PM EDT Office Visit [facility] [address] [place] [id number] Carolina Connolly, FRUIT SHIPPER - CHIEF INFORMATION SECURITY OFFICER [address] [place] [address] [facility] Start: 02-24-2023 End: 02-24-2023 Patient encounter procedure 02/24/2023 11:20 AM EDT Office Visit [facility] [address] [place] [address] [place] [address] BridenthalAshleyKatia, FRUIT SHIPPER - CHIEF INFORMATION SECURITY OFFICER [address] [place] [address] [place] [address] [facility] Start: 02-22-2023 End: 02-22-2023 Patient encounter procedure 02/22/2023 2:00 PM EDT Appointment [facility] [address] [place] [address] Lenard Magallanes, [address] [place] [address] [facility] Start: 02-17-2023 COVID-19 Vaccine ( season) COVID-19 Vaccine ( season) [facility] Start: 02-17-2023 Influenza vaccination Influenza Vacc ine (#1) [facility] Start: 02-14-2023 End: 02-14-2023 Patient encounter procedure 02/14/2023 10:20 AM EDT Office Visit [facility] [address] [place] [address] [place] [address] Bridenthal, Katia, FRUIT SHIPPER - CHIEF INFORMATION SECURITY OFFICER [address] [place] [address] [place] [address] [facility] Start: 02-01-2023 End: 02-01-2023 Patient encounter procedure 02/01/2023 2:15 PM EDT Office Visit [facility] [address] [place] [address] [place] [address] Shiv Loepz MD [address] [place] [address] [facility] Start: 01-25-2023 End: 01-25-2023 Patient encounter procedure 01/25/2023 3:00 PM EDT Office Visit [address] [place] [address] Shiv Lopez MD [address] [place] [address] [facility] Start: 01-03-2023 Hemoglobin A1c measurement Diabetes: Hemoglobin A1C [facility] Start: 10-25-2022 End: 10-25-2022 Patient encounter procedure 10/25/2022 Office Visit Family Medicine Shiv Lopez MD [address] [place] [address] [place] [address] [facility] Start: 09-29-2022 End: 09-29-2022 Patient encounter procedure 09/29/2022 Office Visit Family Medicine Shiv Lopez MD [address] [place] [address] [place] [address] [facility] Family [facility] Start: 09-28-2022 Hemoglobin A1c measurement Diabetes: Hemoglobin A1C [facility] Start: 09-09-2022 Creatinine measurement Creatinine mo nitoring [facility] Start: 09-09-2022 Potassium monitoring Potassium monit oring [facility] Start: 09-09-2022 Thyroid stimulating hormone measurement TSH testing [facility] Start: 08-05-2022 Creatinine measurement Creatinine mo [facility]itoring [facility] Start: 08-05-2022 Potassium monitoring Potassium monit oring [facility] Start: 07-08-2022 Depression Monitoring Depression Mon itoring [facility] Start: 06-30-2022 End: 06-30-2023 25-hydroxyvitamin D3 [Mass/volume] in Serum or Plasma Vitamin D 25 hydroxy Lab Routine Vitamin D deficiency Expected: 06/30/2022 (Approximate), Expires: 06/30/2023 [facility] Work Phone: Comment on above: Expected: 06/30/2022 (Approximate), Expires: 06/30/2023 Start: 06-30-2022 End: 06-30-2023 Comprehensive metabolic 1998 panel - Serum or Plasma Comprehensive metabolic panel Lab Routine Uncontrolled type 2 diabetes mellitus with hyperglycemia (HCC) Expected: 06/30/2022 (Approximate), Expires: 06/30/2023 [facility] Comment on above: Expected: 06/30/2022 (Approximate), Expires: 06/30/2023 Start: 06-30-2022 End: 06-30-2023 Hemoglobin A1c/Hemoglobin.total in Blood Hemoglobin A1c Lab Routine Uncontrolled type 2 diabetes mellitus with hyperglycemia (HCC) Expected: 06/30/2022 (Approximate), Expires: 06/30/2023 [facility] Comment on above: Expected: 06/30/2022 (Approximate), Expires: 06/30/2023 Start: 06-30-2022 End: 06-30-2023 Lipid 1996 panel - Serum or Plasma Lipid panel Lab Routine Hyperlipidemia with target LDL less than 70 Expected: 06/30/2022 (Approximate), Expires: 06/30/2023 [facility] Comment on above: Expected: 06/30/2022 (Approximate), Expires: 06/30/2023 Start: 06-30-2022 End: 06-30-2023 Microalbumin/Creatinine panel in random Urine Microalbumin / creatinine urine ratio Lab Routine Uncontrolled type 2 diabetes mellitus with hyperglycemia (HCC) Expected: 06/30/2022 (Approximate), Expires: 06/30/2023 [facility] Comment on above: Expected: 06/30/2022 (Approximate), Expires: 06/30/2023 Start: 06-30-2022 End: 06-30-2023 Thyrotropin [Units/volume] in Serum or Plasma TSH Lab Routine Acquired hypothyroidism Expected: 06/30/2022 (Approximate), Expires: 06/30/2023 [facility] Comment on above: Expected: 06/30/2022 (Approximate), Expires: 06/30/2023 Start: 06-22-2022 Lipid panel [facility] Start: 03-31-2022 Pneumococcal Vaccine : 65+ Years (2 - PCV) Pneumococcal Vaccine: 65+ Years (2 - PCV) [facility] Start: 02-28-2022 End: 02-28-2022 Patient encounter procedure 02/28/2022 Office Visit Family Medicine Shiv Lopez MD [address] [facility] [place] [address] [facility] Start: 02-17-2022 Annual Wellness Visi t (AWV) Annual Wellness Visit (AWV) [facility] Start: 02-16-2022 Hepatitis C screening Hepatitis C sc reen [facility] Comment on above: Postponed from 08/27 (Patient Refused) Start: 02-16-2022 Thyroid stimulating hormone measurement TSH testing [facility] Start: 11-02-2021 Hemoglobin A1c measurement Diabetes: Hemoglobin A1C [facility] Start: 10-01-2021 Creatinine measurement Creatinine mo nitoring [facility] Work Phone: Start: 10-01-2021 Potassium monitoring Potassium monit oring [facility] Work Phone: Start: 09-13-2021 End: 09-13-2021 Patient encounter procedure 09/13/2021 Office Visit Family Medicine [facility] [place] [address] [facility] Start: 09-02-2021 End: 09-02-2021 Patient encounter procedure 09/02/2021 Office Visit Family Shiv Freed MD [address] [facility] [place] [address] [facility] Start: 06-24-2021 Thyroid stimulating hormone measurement TSH testing [facility] Work Phone: Start: 06-24-2021 TSH Qn TSH testing [facility] Work Phone: Start: 06-21-2021 COVID-19 Vaccine (3 - Booster for Brian series) COVID-19 Vaccine (3 - Booster for Brian series) [facility] Start: 05-26-2021 Shingles Vaccine (2 of 2) Shingles Vaccine (2 of 2) [facility] Start: 05-26-2021 Zoster Vaccines (2 o f 2) Zoster Vaccines (2 of 2) [facility] Start: 04-20-2021 Creatinine measurement Creatinine mo nitoring [facility] Work Phone: Start: 04-20-2021 Potassium monitoring Potassium monit oring [facility] Work Phone: Start: 01-15-2021 Screening for osteoporosis DEXA (modify frequency per FRAX score) [facility] Work Phone: Comment on above: Postponed from 08/27 (Patient Refused) Start: 01-07-2021 Urine screening for protein Diabetes: Urine Protein Screening [facility] Start: 10-12-2020 End: 10-12-2020 Patient encounter procedure 10/12/2020 Office Visit Family [facility] [place] [address] [phone] [facility] Start: 10-08-2020 End: 10-08-2020 Patient encounter procedure 10/08/2020 Office Visit Family [facility] [place] [address] [phone] Canceled (Patient) [facility] Comment on above: Canceled (Patient) Start: 10-01-2020 End: 10-01-2020 Office Visit 10/01/2020 Office Visit Family [facility] [place] [address] [phone] [facility] Start: 06-03-2020 Lipid panel [facility]id screen [facility] Work Phone: Start: 01-21-2020 A1C test (Diabetic o r Prediabetic) A1C test (Diabetic or Prediabetic) [place] Start: 01-19-2020 TSH testing TSH testing [place], [place] Start: 06-07-2019 DTaP/Tdap/Td vaccine (1 - Tdap) DTaP/Tdap/Td vaccine (1 - Tdap) [place] Comment on above: Postponed from 08/27 (Patient Refused) Start: 05-23-2019 Diabetic retinal exam Diabetic retin al exam [place] Start: 04-12-2019 Lipid screen Lipid screen [place], [place] Start: 02-17-2019 Influenza vaccination Flu vaccine (# 1) [place] Start: 12-05-2018 Annual Wellness Visi t (AWV) Annual Wellness Visit (AWV) [facility] Phone: Start: 10-06-2017 [object Object] Diabetic foot exam [place] Start: 10-06-2017 Annual Wellness Visi t (AWV) Annual Wellness Visit (AWV) [place] Start: 03-09-2013 Pneumococcal 65+ yea rs Vaccine (2 of 2 - PCV13) Pneumococcal 65+ years Vaccine (2 of 2 - PCV13) [place] Start: 08-27-2008 DEXA (modify frequen cy per FRAX score) DEXA (modify frequency per FRAX score) [place] Start: 08-27-2008 Pneumococcal 65+ yea rs Vaccine (1 of 2 - PCV13) Pneumococcal 65+ years Vaccine (1 of 2 - PCV13) [place] Start: 2003 RSV Immunization age d 60 or older (1 - 1-dose 60+ series) RSV Immunization aged 60 or older (1 - 1-dose 60+ series) [facility] Start: 08-27-1993 Colon cancer screen colonoscopy Colon cancer screen colonoscopy [place] Start: 08-27-1993 Shingles Vaccine (1 of 2) Shingles Vaccine (1 of 2) [place] Start: 08-27-1962 DTaP/Tdap/Td vaccine (1 - Tdap) DTaP/Tdap/Td vaccine (1 - Tdap) [facility] Start: 08-27-1962 DTaP/Tdap/Td Vaccine s (1 - Tdap) DTaP/Tdap/Td Vaccines (1 - Tdap) [facility] Start: 08-27-1961 Hepatitis C screening Hepatitis C Sc reening [facility] Start: 1959 COVID-19 Vaccine (1 of 2) COVID-19 Vaccine (1 of 2) [facility] Work Phone: Start: 1959 COVID-19 Vaccine (1) COVID-19 Vaccin e (1) [facility] Work Phone: Start: 08-27-1953 Diabetic foot examination Diabetes: Foot Exam [facility] Start: 08-27-1953 Glaucoma screening Diabetes: R etinopathy Screening [facility] Start: 08-27-1953 Preventive dental service Diabetes: Dental Exam [facility] Start: 1945 Hepatitis B Vaccines (1 of 3 - 3-dose series) Hepatitis B Vaccines (1 of 3 - 3-dose series) [facility] Start: 1945 Hepatitis C screening Hepatitis C sc reen [facility] Work Phone: Start: 1945 Thyroid stimulating hormone measurement TSH Level [facility] Dressing Order: Xeroform; Daily; Silicone foam borders (multiple sizes) Dressing Order: Xeroform; Daily; Silicone foam borders (multiple sizes) Wound Ostomy Routine Ordered: 02/15/2023 [facility] Work Phone: Comment on above: Ordered: 02/15/2023 EKG 12 Lead EKG 12 Lead ECG Routine 02/01/2019 7:[address] [facility] [place], [place] Patient referral [facility] Work Phone: Tissue exam [facility] Work Phone: Comment on above: Release Upon Ismaelin g for 1 Occurrences starting 12/07/2022, 1 completed Immunizations Immunization Date Immunization Notes Care Provider Fa cili 03-17-2023 Influenza High-Dose Quadrivalent [facility] 03-17-2023 influenza virus vacc ine, unspecified formulation Felicia Garcia LPN [facility] 03-01-2023 Influenza Vac A&B SA Adj quadrivalent (Fluad) vaccine 0.5 mL Alexander Whaley MD Work Phone: [facility] 04-26-2022 influenza, high dose seasonal, preservative-free Shiv Lopez MD Work Phone: [facility] 04-26-2022 Pneumococcal Conjuga te PCV20, Pf (Prevnar 20) Shiv Lopez MD Work Phone: [facility] 04-26-2022 influenza virus vacc ine, unspecified formulation Katia Granados FRUIT SHIPPER - CHIEF INFORMATION SECURITY OFFICER Work Phone: [facility] 04-26-2021 COVID-19, Moderna, Primary or Immunocompromised, PF, 100mcg/0.5mL Sommer Chatterjee DPM Work Phone: [facility] Work Phone: 03-31-2021 Influenza, Quadv, adjuvanted, 65 yrs +, IM, PF (Fluad) Sommer JARRETTM Work Phone: [facility] Work Phone: 03-31-2021 pneumococcal polysaccharide vaccine, 23 valent Sommer Chatterjee DPM Work Phone: [facility] Work Phone: 03-31-2021 zoster vaccine recombinant Sommer Chatterjee DPM Work Phone: [facility] Work Phone: 08-27-2020 COVID-19, J&J, PF, 0 .5 mL Shiv Lopez MD Work Phone: [facility] Work Phone: 03-31-2020 influenza virus vacc ine, unspecified formulation Shiv Lopez [facility] Work Phone: 03-31-2020 Influenza, Quadv, adjuvanted, 65 yrs +, IM, PF (Fluad) Shiv Lopez [facility] Work Phone: 06-03-2019 influenza, high dose seasonal, preservative-free Shiv Lopez [facility] 05-25-2018 influenza, high dose seasonal, preservative-free Darya Berrios [facility] 05-13-2013 influenza virus vacc ine, unspecified formulation Darya Berrios [place], [place] 05-13-2013 influenza virus vacc ine, whole virus Shiv MERCADO Work Phone: 03-09-2012 pneumococcal Conjuga te, unspecified formulation Shiv MERCADO Work Phone: 03-09-2012 pneumococcal polysaccharide vaccine, 23 valent Darya Berrios [facility] 03-09-2012 pneumococcal vaccine , unspecified formulation [facility] 04-13-2010 pneumococcal polysaccharide vaccine, 23 valent Darya Berrios [facility] 03-21-2001 pneumococcal polysaccharide vaccine, 23 valent Darya Berrios [place] Payers Date Payer Category Payer Self-pay [id number] 2024 Unknown [id number] 2024 Unknown [id number] 2022 Medicare HU[employer]NA MEDICARE ADVANTAGE HU[employer]NA MEDICARE [id number] 2022-Present [address] [place] [address] Medicare O [id number] 2020 Medicare [id number]. [id number] 2020 Medicare [id number]. [id number] 2018 Medicare HUMANA MEDICARE HUMANA CHOICE-PPO MEDICARE xxxxxxxxx 2018-Present [address] [address] [place] [address] xxxxxxxxx [id number] Private Health Insurance [facility]/ D & S [facility] [id number] Unknown Unknown [id number] Unknown WELL CARE DUAL ACCESS [id number] Unknown [id number] 2.16.840.1.995518.3.579.2. 462 Unknown [id number] 2.16.840.1.650967.3.579.2. 462 Unknown [id number] 2.16.840.1.690708.3.579.2. 462 Unknown [id number] 2.16.840.1.678643.3.579.2. 462 Unknown [id number] 2.16.840.1.876604.3.579.2. 462 Unknown [id number] 2.16.840.1.216559.3.579.2. 462 Unknown [id number] 2.16.840.1.865423.3.579.2. 462 Unknown [id number] 2.16.840.1.310669.3.579.2. 462 Unknown [id number] 2.16.840.1.847237.3.579.2. 462 Unknown [id number] 2.16.840.1.495912.3.579.2. 462 Unknown [id number] 2.16.840.1.644950.3.579.2. 462 Unknown [id number] 2.16.840.1.994046.3.579.2. 462 Unknown [id number] 2.16.840.1.648412.3.579.2. 462 Unknown [id number] 2.16.840.1.575209.3.579.2. 462 Unknown [id number] 2.16.840.1.684442.3.579.2. 462 Unknown [id number] 2.16.840.1.293729.3.579.2. 462 Unknown [id number] 2.16.840.1.554527.3.579.2. 462 Unknown [id number] 2.16.840.1.941011.3.579.2. 462 Unknown [id number] 2.16840.1.910278.3.579.2. 462 Unknown [id number] 2.16840.1.440044.3.579.2. 462 Unknown [id number] 2.840.1.253682.3.579.2. 462 Unknown [id number] 2.16840.1.374718.3.579.2. 462 Unknown [id number] 2.840.1.809428.3.579.2. 462 Unknown [id number] 2.840.1.611959.3.579.2. 462 Unknown [id number] 2.840.1.420814.3.579.2. 462 Unknown [id number] 2.840.1.848632.3.579.2. 462 Unknown [id number] 2.16840.1.048013.3.579.2. 462 Unknown [id number] 2.840.1.453392.3.579.2. 462 Unknown [id number] 2.840.1.878775.3.579.2. 462 Unknown [id number] 2.840.1.537157.3.579.2. 462 Unknown [id number] 2.840.1.680156.3.579.2. 462 Unknown [id number] 2.840.1.792421.3.579.2. 462 Social History Date Type Detail Facility Start: 07-13-2020 End: 03-03-2023 Tobacco smoking status ORIS Never smoker [place] Start: 07-13-2020 End: 04-09-2022 Tobacco use and exposure Never used [facility] Work Phone: Start: 07-13-2020 End: 06-30-2022 Alcohol intake Current drinker of alcohol (finding) [facility] Work Phone: Start: 01-13-2015 Alcohol Comment Social [place], [place] Start: 1945 Sex Assigned At Female [facility] Work Phone: Start: 08-30-2021 End: 02-28-2023 Exposure to SARS-CoV-2 (event) Not sure [facility] Work Phone: Start: 01-18-2019 End: 12-13-2022 Alcohol intake Yes [facility] Sex Assigned At Not on file [place] Start: 02-01-2019 End: 03-03-2023 Tobacco smoking status NHIS Unknown if ever smoked [facility] Start: 10-14-2020 End: 12-13-2022 Alcohol intake [facility] Start: 02-16-2021 End: 04-26-2022 History SDOH Alcohol Frequency 1 [facility] Work Phone: Start: 02-15-2021 End: 04-26-2022 History SDOH Financial 3 [facility] Work Phone: Start: 02-15-2021 End: 04-26-2022 History SDOH Transport Med 2 [facility] Work Phone: Start: 04-09-2022 Alcohol Comment social [facility] Within the last year , have you been afraid of your partner or ex-partner? No [facility] How often to you hav e a drink containing alcohol? 2-4 times a month [facility] How many standard dr inks containing alcohol do you have on a typical day? 1 or 2 [facility] How often do you hav e 6 or more drinks on 1 occasion? Never [facility] How hard is it for y ou to pay for the very basics like food, housing, medical care, and heating Hard [facility] (I/We) worried jagruti er (my/our) food would run out before (I/we) got money to buy more. Never [facility] In the past 12 month s, has lack of transportation kept you from medical appointments or from getting medications? No [facility] Start: 12-07-2022 Alcohol Comment social; 1 mixed drink every 2 weeks [facility] Start: 04-07-2022 Gender identity Identifies as female gender (finding) [facility] Start: 04-07-2022 Sexual orientation Heterosexual (finding) [facility] Do you feel stress - tense, restless, nervous, or anxious, or unable to sleep at night because your mind is troubled all the time - these days [OSQ] Only a little [facility] Are you now , , , , never or living with a partner? [facility] Start: 09-18-2024 End: 10-14-2024 Sex Female (finding) [facility] Medical Equipment Procedure Code Equipment Code Equipment Origin al Text Equipment Identifier Dates Test blood sugar 4 times a day [id number] Start: 03-25-2020 End: 10-01-2020 2 daily [id number] Start: 03-20-2019 Test blood sugar 4 times daily [id number] Start: 01-01-2019 test blood sugar 4 times daily [id number] Start: 01-13-2020 300 each by Does not apply route 4 times daily [id number] Start: 01-01-2019 ASSURE COMFORT LANCETS 30G MISC [id number] Start: 09-07-2016 1 each by In Vit ro route 4 times daily [id number] Start: 01-01-2019 4 times a day [id number] Start: 09-22-2017 2 daily [id number] Start: 01-03-2019 4 times a day [id number] Start: 07-25-2018 1 each by In Vit ro route 4 times daily as needed (patient tests four times daily and as needed) Patient tests QID [id number] Start: 03-01-2021 Test blood sugar 4 times daily [id number] Start: 12-18-2020 1 each by In Vit ro route 4 times daily Accu-check [facility] [id number] Start: 06-22-2021 End: 08-05-2021 Test blood sugar 3 times a day.PLEASE FILL FOR QUIK TEST STRIPS [id number] Start: 09-09-2021 [id number] Start: 01-10-2022 End: 03-03-2023 Goals Date Patient Goal Desired Activity /State Comment on above: Self- Management Aliya n: Obesity/Weight Loss Patient Stated Goal: Weight Loss Barriers to success: none Plan for overcoming my barriers: help from doctor. Encouraged and recommended by provider. Confidence: [phone] Self-Management Plan: Will strive to achieve goal by 2017 goal set: 10/06/16 Patient given educational materials below via [facility]. Provider Goal: Healthy diet and exercise. Patient received counseling about current lifestyle goal. Advised approximately 150 minutes of cardio, i.e treadmill, exercise in a week. Advised "strive for 5" a total 5 servings of fruits and [...] i.e treadmill, exercise in a week. Advised "strive for 5" a total 5 servings of fruits and [...] r;Bathroom Privilege [facility] Work Phone: Mental Status Date Assessment Result Facility 03-18-2023 Cognitive function Voice/Name [facility] Work Phone: 03-18-2023 Cognitive function Appropriate;Cooperativ e [facility] Work Phone: Clinical Notes 06-30-2022 to 12-29-2023 Felicia Garcia LPN - 12/29/2023 1:02 PM EDTRyolanda Garcia LPN - 12/29/2023 1:02 PM EDTAshia Dumont - 12/29/2023 1:02 PM EDT Note Date & Type Note Facility 12-29-2023 History of Presen t illness Narrative Please schedule AWV. documented in this encounter [facility] 12-29-2023 History of Presen t illness Narrative Please schedule AWV. Called patient---phone number is not working--sent letter by mail. documented in this encounter [facility] 05-19-2023 Note THE PT. WAS SCHEDULE D FOR AN OUTREACH TODAY. EMR REVIEWED. CM CALLED AND SPOKE WITH A STAFF MEMBER AT [facility] AND THE PT. IS STILL ADMITTED TO THE RETIREMENT FACILITY. CM WILL CONTINUE TO FOLLOW-UP WITH THE PT. ONCE SHE IS DISCHARGED TO HOME. [facility] 05-03-2023 Note THE PT. WAS SCHEDULE D FOR AN OUTREACH TODAY. EMR REVIEWED. CM CALLED AND SPOKE WITH A STAFF MEMBER AT [facility] AND THE PT. IS STILL ADMITTED TO THE RETIREMENT FACILITY. CM WILL CONTINUE TO FOLLOW-UP WITH THE PT. ONCE SHE IS DISCHARGED TO HOME. [facility] 03-29-2023 Note Referral from [place] Daily Census Report. Patient with recent admit to [facility] 02/28-03/03 with LING/functional decline and was discharged to [facility] SNF. Patient with several chronic diagnoses. Will send referral to [facility] CMShari, for further chart review and potential ongoing CM. [facility] 03-17-2023 Discharge summary Note Date/Time March 15, 2023 7:15pm [facility] Medical Records Department [address] [place] [address] Discharge Summary 03/15/231913 MR#: [id number] Acct: [id number] Name: RADHA SANDOVAL Rep #:[id number] : 1945 77 From: Baljit Jaffe MD PCP: Dr. Shiv Lopez MD Status:ADM IN Location: [facility] [place] [address] Providers Date of Admission: 03/03/23 Primary Care [...] - Buspar 5mg bid prn, stable chronic intermediate manager use, GDR not recommended. * Vitamin D [...] Depression - Paroxetine 20mg qhs, stable chronic intermediate manager use, GDR not recommended. * Restless Leg [...] unit/mL subcutaneous solution 19 unit subcut DAILY Dmltvoub79/15/23 insulin lispro 100 unit/mL subcutaneous pen (Humalog [...] for cellulitis bilateral lower extremities. Discharge to [facility] 03/18/2023, intermediate, Part B therapies. Physical [...] and Uncontrolled pain Additional Instructions: Discharge to [facility] 03/18/2023, intermediate, Part B therapies. Meaningful Use Info Meaningful Use Diagnoses (Choose all that apply): None applicable Discharge Plan Admission Admit Date/Time: 03/03/23 13:30 Primary Reason for Your Visit: Debility. Attending Provider: Baljit Jaffe Chi Primary Care Provider: Shiv Lopez Consulting Providers: Omar Huitron Instructions Additional Instructions / Restrictions: Discharge to [facility] 03/18/2023, intermediate, Part B therapies. Discharge [...] bid x 10 days, culture pending at [facility] lab. 03/17/23 1545<Electronically signed by Baljit Jaffe MD> Cosigner Signature (if applicable): cc: Dr. Shiv Lopez MD; Dr. Baljit Jaffe MD ~* Signed [facility] Work Phone: 1(442) 837-764009-27-2023 Discharge summary Author Baljit Jaffe [facility] March 15, 2023 7:35pm Note Date/Time March 15, 2023 7:35pm [facility] Medical Records Department [address] [place] [address] Transfer to [facility] MR#: [id number] Acct: [id number] Name: RADHA SANDOVAL Rep #:[id number] : 1945 77 From: Baljit Jaffe MD PCP: Dr. Shiv Lopez MD Status:ADM IN Certification of patient admission REQUIRED AT TIME OF ADMISSION. I CERTIFY THAT POST-HOSPITAL ECF SERVICES ARE REQUIRED TO BE GIVEN ON AN IN-PATIENT BASIS BECAUSE OF THE ABOVE NAMED PATIENT'S NEED FOR JAIL CARE ON A CONTINUING BASIS FOR THE CONDITION(S) FOR WHICH HE/SHE WAS RECEIVING IN-PATIENT HOSPITAL SERVICES PRIOR TO HIS/HER TRANSFER TO THE [facility]. 03/15/231934<Electronically signed by Baljit Jaffe MD> Diet [...] - Buspar 5mg bid prn, stable chronic skilled nursing use, GDR not recomme nded. * Vitamin [...] Depression - Paroxetine 20mg qhs, stable chronic intermediate manager use, GDR not recommended. * Restless Leg [...] Instructions Additional Instructions / Restrictions: Discharge to [facility] 03/18/2023, intermediate, Part B therapies. Discharge [...] MD ~ [facility] Work Phone: 1(955) 145-207709-27-2023 NotePlease send her immunization record [facility]09-20-2023 Consult note Author Shine Rojas [facility] March 08, 2023 11:33am Note Date/Time March 08, 2023 11:33am [facility] Medical Records Department [address] [place] [address] Consultation 03/08/23 1130 MR#: [id number] Acct: [id number] Name: RADHA SANDOVAL Rep #:[id number] : 1945 77 From: Shine Rojas DPM PCP: Dr. Shiv Lopez MD Status:ADM IN Location: [place] [address] Assessment & Plan Assessment/Plan (1) Type 2 [...] controlled today not causing patient any issues. [facility] Medical History Anemia Arthritis Chronic pain Chronic [...] unit/mL subcutaneous solution 19 unit subcut DAILY Pjhejrav50/15/23 [History Last Taken 03/03/23] insulin lispro 100 [...] MD~ Signed [facility] Work Phone: 1(616) 317-506609-19-2023 Progress note Author Betty Hicks [facility] March 07, 2023 4:16pm Note Date/Time March 07, 2023 3:00pm [facility] Medical Records Department [address] [place] [address] Progress Note - Pharmacy 03/07/23 1456 MR#: [id number] Acct: [id number] Name: RADHA SANDOVAL Rep #:[id number] : 1945 77 From: Betty Hicks PCP: Dr. Shiv Lopez MD Status:ADM IN Location: TCU U06-1 TCU RX Drug Regimen Review Subjective/Objective Subjective/Objective: Subjective: 77 YOF admitted to TCU S/P hospitalization from an outside facility on [...] Mg (50, 000 Unit) Capsule PO QWEEK [facility] Hydralazine HCl 25 mg 03/03/23 22:00 03/07/23 [...] 30 Gm Bottle TOPICAL 1 applic BID [facility] Administration Protocol Nystatin/Triamcinolone Acetonide 1 applic 03/03/23 22:00 03/07/23 08:53 Nystatin/Triamcin Cream Tube TOPICAL 1 applic BID [facility] Administration Protocol Paroxetine HCl 20 mg 03/04/23 [...] ~ Signed [facility] Work Phone: 1(631) 266-925009-15-2023 History and physical note Author Baljit Jaffe [facility] March 03, 2023 4:39pm Note Date/Time March 03, 2023 3:08pm [facility] Medical Records Department [address] [place] [address] History & Physical Exam 03/03/23 1501 MR#: [id number] Acct: [id number] Name: RADHA SANDOVAL Rep #:[id number] : 1945 77 From: Baljit Jaffe MD PCP: Dr. Shiv Lopez MD Status:ADM IN Location: TCU TCU06-1 HPI - General General Date of Admission: 03/03/23 Date of Service: 03/03/23 Chief Complaint: Here for rehabilitation. HPI Narrative RADHA SANDOVAL, is a 77 Female who presents with followin02/27/2023 Dr. Shiv Lopez prescribed Augmentin for dysuria, polyuria, low back pain for urinary tract infection. Augmentin not started, symptoms worse, patient presented to ED. 02/28/2023 Admit to [facility]. Low back pain, dysuria, polyuria, weakness. Diabetes with hyperglycemia, weakness, urinary tract infection. IV antibiotics for urinary tract infection. IV fluids, sliding scale insulin for Diabetes Mellitus II. PT/OT for weakness. 03/01/2023 Feels better, weak, pain improved. Continue IV antibiotics. 03/03/2023 Admit to TCU with debility, here for rehabilitation, strengthening, prior to discharge home alone. [facility] Medical History Anemia Arthritis Chronic pain Chronic [...] unit/mL subcutaneous solution 19 unit subcut DAILY Gljnvvqq62/15/23 [History Last Taken 03/03/23] insulin lispro 100 [...] - Buspar 5mg bid prn, stable chronic intermediate manager use, GDR not recommended. * Vitamin D [...] Depression - Paroxetine 20mg qhs, stable chronic skilled nursing use, GDR not recommended. * Restless Leg syndrome - Mirapex 0.25mg qhs. 03/03/23 1639 <Electronically signed by Baljit Jaffe MD> Cosigner Signature (if applicable): CC: Dr. Shiv Lopez MD; Dr. Baljit Jaffe MD~ Signed [facility] Work Phone: 1(508) 437-538709-15-2023 History of Present illness Narrative* Randi Marquez RN - 03/03/2023 1:08 PM EDT Discharged via ambulance to [facility] * Randi Marquez RN - 03/03/2023 11:19 AM EDT Report called to pippa at [facility] at [phone] * Jelly Paz, ELSA - CHIEF INFORMATION SECURITY OFFICER - 03/02/2023 12:54 PM EDT Images from the original note were not included. Department of Internal Medicine Division of Endocrinology, Diabetes, & Metabolism Endocrinology Note Patient Name: Radha Sandoval : 1945 AGE: 77 y.o. Room/Bed: [facility]/[address] Admission Date: 02/28/2023 Visit Date: 03/02/2023 Reason for Endocrine Consult: DM-Uncontrolled Provider/Team Requesting Consult: Dr. Finch PCP: Shiv Lopez MD Outpt Rehab Care Assistant: No ASSESSMENT: Type II diabetes with hyperglycemia, with intermediate manager insulin use Postoperative hypothyroidism Patient admitted for [...] before breakfast Patient to discharge to SNF - [facility] Outpt Follow Up-- PCP SUBJECTIVE/HPI: CHIEF [...] diagnosis. She has been having diarrhea in 5621-5769, smt severe Glimepiride- started in 2015 Trulicity [...] CHOLHDLRATIO 4 02/16/2021 No results found for: [id number] Lab Results Component Value Date TSH 0.03 (L) 02/27/2023 Radiology reportsas per the Radiologist Radiology: CT abdomen pelvis wo IV contrast Result Date: 02/28/2023 Patient Name: RADHA SANDOVAL : 1945 [facility]#: [id number] ExamDate/Time: 02/28/2023 13:07 Procedure: CT ABDOMEN PELVIS [...] 12/07/2022 Performed by Avery Marshall DO at [facility] ENDOSCOPY EYE SURGERY Bilateral early 90's LUNG [...] were not included. Occupational Therapy OCCUPATIONAL THERAPY [facility] Treatment Note Name/MRN: Radha Sandoval ([id number]) Date of : 1945 Age: 77 y.o. Room/Bed: [facility]153/[facility]153 A Visit #: 1 out of 7 [...] were not included. Hospitalist Progress Note 03/02/2023 [phone]: Please secure chat me for patient care issues. [phone]: Please secure chat [facility] night Hospitalist for any issues. Subjective: Admit Date: 02/28/2023 PCP: Shiv Lopez MD Room#: B1-153/B1-153 A Interval History: Tolerating diet. Remains weak. Still urinating frequently. She denies chest pain,sob, cough, abdominal pain, nausea, vomiting, diarrhea, constipation, fevers, or chills. D/w pt Adult diet Regular; Low Sodium (2 gm); 4 carb choices (60 gm/meal) @[id number]@ 24HR INTAKE/OUTPUT: No intake or output data [...] Information Primary Emergency Contact: Angel Roger Address: [address] Mobile Relation: Child GABRIELLE FINCH MD Division of Hospitalist Medicine [facility] PAGER: Epic chat * Diann Ca Telma, FRUIT SHIPPER - CHIEF INFORMATION SECURITY OFFICER - 03/02/2023 9:31 AM EDT [facility] Geriatric Medicine Inpatient Consult Service Admission Date: 02/28/2023 Assessment Principal Problem: LING (acute kidney injury) (CMS/HCC) ([facility]) Active Problems: Declining functional status Weakness Anxiety Polypharmacy DNR (do not resuscitate) Insomnia Plan Declining functional status -Related to physical deconditioning, UTI, advanced age, diabetes type 2 -Continue PT/OT as able while inpatient -Anticipate d/c to SNF for ongoing daily PT/OT, patient agreeable to go to [facility] Fall Weakness -Multiple risk factors including weakness, [...] Complaint: low back pain/dysuria/polyuria/weakness Geriatrics consulted for "functional decline" HPI- The patient is new to me [...] contact guard. Ambulated 30 ft x2. Recommending longterm facility . Review of Systems Constitutional: Negative [...] tablet 1 tablet, 1 tablet, Oral, BID, Gabrilele Finch MD, 1 tablet at 03/02/23908 baclofen [...] solution 12.5 g, 12.5 g, IntraVENous, PRN, Alexander Whaley MD enoxaparin (Lovenox) syringe 40 mg, 40 mg, SubCUTAneous, Daily, Gabrielle Finch MD, 40 mg at 03/02/23908 glucagon (human recombinant) injection 1 mg, 1 mg, IntraMUSCular, PRN, Gabrielle Finch MD glucose oral gel 15 g, 15 g, Oral, PRN, Alexander Whaley MD Influenza Vac A&B SA Adj quadrivalent (Fluad) vaccine 0.5 mL, 0.5 mL, IntraMUSCular, Prior to discharge, Gabrielle Finch MD insulin glargine (Lantus) injection 19 Units, 19 Units, SubCUTAneous, q AM, Jelly Paz, FRUIT SHIPPER - CHIEF INFORMATION SECURITY OFFICER, 19 Units at 03/02/23908 Insulin Lispro (Humalog) injection 0-12 Units, 0-12 Units, SubCUTAneous, TID WC, 2 Units at 03/02/23908 AND [DISCONTINUED] Insulin Lispro (Humalog) injection 0-12 Units, 0-12 Units, SubCUTAneous, Nightly, Gabrielle Finch MD, 4 Units at 02/28/232053 Insulin Lispro (Humalog) injection 6 Units, 6 Units, SubCUTAneous, 4x daily AC & HS, Jelly Paz, FRUIT SHIPPER - CHIEF INFORMATION SECURITY OFFICER, 6 Units at 03/02/23604 levothyroxine (Synthroid, Levoxyl) [...] 0.03 (L) 02/27/2023 No results found for: [id number] Lab Results Component Value Date VITD25 17 (L) 03/02/2023 Reviewed: allergies, previous encounters, imaging, active problem lists, medications, and labs * Edelmira Hanna - 03/02/2023 8:23 AM EDT Nutrition rescreen completed. Pt referred to RD for uncontrolled DM, and nutrition supplement per Wound Care. * Monet Mcdonnell, PT - 03/01/2023 3:47 PM EDT Physical Therapy Facility/Department: [address] Physical Therapy Initial Evaluation NAME: Radha Sandoval : 1945 Date of Service: 03/01/2023 Discharge Recommendations: Group Home Facility, Continue to assess pending progress PT [...] diagnosis was LING (acute kidney injury) (CMS/HCC) ([facility]). Diagnoses of Pyelonephritis, Polypharmacy, Insomnia, [...] (restless legs syndrome), Type 2 diabetes mellitus ([facility]), and Varicella. has a past surgical history [...] Device: straight cane Transfer Assistance: Independent Active Business Process Manager: Yes Objective Observation/Palpation Posture: Good Observation: PIV [...] were not included. Hospitalist Progress Note 03/01/2023 [phone]: Please secure chat me for patient care issues. [phone]: Please secure chat [facility] Hospitalist for any issues. Subjective: Admit Date: 02/28/2023 PCP: Shiv Lopez MD Room#: B1-153/B1-153 A Interval History: Feels better. Weak. Tolerating diet. Pain markedly improved. She denies chest pain, sob, cough, abdominal pain, nausea, vomiting, diarrhea, constipation, fevers, or chills. D/w pt and Geriatrics separately. Adult diet Regular; Low Sodium (2 gm); 4 carb choices (60 gm/meal) @FCIG5CCJJJB@ 24HR INTAKE/OUTPUT: No intake or output data [...] Information Primary Emergency Contact: Angel Roger Address: [address] Mobile Relation: Child GABRIELLE FINCH MD Division of Hospitalist Medicine [facility] PAGER: Coverity chat * Gunner Roberts OT - 03/01/2023 11:54 AM EDT Images from the original note were not included. Occupational Therapy OCCUPATIONAL THERAPY [facility] Initial Evaluation Name/MRN: Radha Sandoval ([id number]) Evaluation Date: 03/01/2023 Date of : 1945 Admission Date: 02/28/2023 11:30 AM Age: 77 y.o. Room/Bed: B1153/[facility]153 A Discharge Recommendation: SNF and Continue to [...] (restless legs syndrome) Type 2 diabetes mellitus ([facility]) Varicella Past Surgical History: Past Surgical History: Procedure Laterality Date APPENDECTOMY CHOLECYSTECTOMY 1979 COLONOSCOPY 06/19/2008 COLONOSCOPY W/ BIOPSIES AND POLYPECTOMY N/A 12/07/2022 Performed by Avery Marshall DO at [facility] ENDOSCOPY EYE SURGERY Bilateral early 90's LUNG REMOVAL, PARTIAL Left ROTATOR CUFF REPAIR Left TONSILLECTOMY Admission Diagnosis: Patient Active Problem List Diagnosis Date Noted LING (acute kidney injury) ([facility]/HCC) (HCC) 02/28/2023 Acute cystitis with hematuria 02/27/2023 [...] Uncontrolled type 2 diabetes mellitus with hyperglycemia ([facility]) 01/16/2020 Morbidly obese ([facility]) 01/16/2020 Vitamin D deficiency 01/16/2020 Moderate episode of recurrent major depressive disorder ([facility]) 06/03/2019 Chronic renal insufficiency, stage III (moderate) (HCC) 06/03/2019 Hyperlipidemia with target LDL less than [...] Responsibilities: Independent Receives Help From: None Active Business Process Manager: Yes Prior Level of Function ADL Assistance: [...] of Care supervision is transferred to a [facility] Therapy Services Occupational Therapist. Goals and/or treatment plan was established in collaboration with patient/family/other representatives. documented in this [facility]09-15-2023 Hospital course Narrative* Gabrielle Finch MD - [...] wound care RECOMMENDED NEXT STEPS: Transferred to [facility] SNF. Continue close monitoring of BG. [...] gross lesions, rashes LABS: CBC: Recent Labs 03/01/2334303/02/2339903/03/23129 WBC 13.8* 9.5 9.0 RBC 4.00 4.16 [...] mg) by mouth daily. ergocalciferol 1.25 MG (37204 UT) capsule Commonly known as: Vitamin D-2 [...] zolpidem 10 MG tablet Commonly known as: Aleksey Where to Get Your Medications These medications were sent to [facility] [address] [place] [address] Hours: Monday to Monday 10 am to [...] Complexity: follow up within 7-14 calendar days (77304) [] Severe Complexity: follow up within 7 calendar days (28678) FOLLOW UP TESTING, PENDING RESULTS OR REFERRALS AT TRANSITIONAL CARE VISIT: [] Yes [] No PENDING STUDIES: No DISPOSITION: SNF FACILITY/HOME CARE AGENCY NAME: [facility] Follow up with [facility] [address] [place] [address] [address] [facility] [address] INSTRUCTIONS TO MA/SW: Please call [...] MD 03/03/2023, 5:28 PM documented in this [facility]09-15-2023 NoteDischarge Summary Radha Sandoval : 1945 ADMIT [...] wound care RECOMMENDED NEXT STEPS: Transferred to [facility] SNF. Continue close monitoring of BG. [...] 3 2* LIVER PROFILE: Recent Labs 03/01/2334303/02/2339903/03/23 0130 AST 24 22 34 ALT 16 13 [...] mg) by mouth daily. ergocalciferol 1.25 MG (26468 UT) capsule Commonly known as: Vitamin D-2 [...] taking these medications amoxicillin-clavulan (more content not included)...[facility] 03-03-2023 Note* Care Coordination - Ester Lipscomb - 03/03/2023 11:21 AM EDT Discharge med list transmitted to [facility] via Careport per [facility] request. [id number] Miscellaneous Notes* Restricted notes were excluded * Care Coordination - Ester Lipscomb - 03/03/2023 11:21 AM EDT Discharge med list transmitted to [facility] via Careport per T[facility] request. * Care Coordination - Unknown Case Management - 03/03/2023 11:20 AM EDT Patient Choice Patient Name: RADHA SANDOVAL Date of : 1945 All Providers Sent Referral Name: [facility] Transitional Care Unit [facility] Address: [address] [place] [address] [facility] Address: [address] [place] [address] * Care Coordination - Laura Jackson RN - 03/03/2023 9:33 AM EDT Spoke with pt at bedside regarding POA, pt states she is not interested at this time to complete itand would consider completing at [place] - did call Rafaela at [place] to update her as well. * Care Coordination - COLT Hill - 03/03/2023 8:41 AM EDT Transportation arranged through [facility] by cot set for 10 am bead picker. Will notify RN and TCC of this in rounds. Notified patient's son via phone of transportation time. SW remains available if any other needs concerns arise. * Care Coordination - Laura Jackson RN - 03/03/2023 7:29 AM EDT Insurance auth obtained for [facility] nursing [facility], updated Dr Finch notified via Coverity Chat. * Care Coordination - Laura Jackson RN - 03/02/2023 11:15 AM EDT Received a call from Rafaela at [facility], they are able to accept, pt agreeable. 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 at this time * Care Coordination - Ester Lipscomb - 03/02/2023 8:40 AM EDT [facility] to [facility]. Await review and response regarding ability to accept. TCC notified. * Care Coordination - Laura Jackson RN - 03/02/2023 8:21 AM EDT Spoke with pt agreeable for referral to [facility], [facility] tasked to complete * Home Care - Alexander Anaya LPN - 03/01/2023 4:25 PM EDT Hair Or Beauty Salon Manager following case for Discharge Needs. Therapy states SNF, but Patient wants HC instead. * Care Coordination - Laura Jackson RN - 03/01/2023 10:14 AM EDT Care Managment Initial Assessment Date: 03/01/2023 Patient Name: Radha Sandoval : 1945 Patient Information Source of Information: Patient Cognition/Language: WFL - Within Functional Limits Permission given to speak with patient automotive sales representative/caregiver as indicated: Yes Confirmation of Payer with patient/family: Yes Payer Name: [employer] Ivins: No Confirmation of Primary Care Physician: Confirmed [...] Prescription Coverage: Yes Pharmacy Used: [facility] Medication Management: Independent Transportation/Shopping: Independent Transportation Mode: [...] in SNF but would be able to [facility]. [facility] liaison following, TCC to assist and follow as needed. Laura Jackson RN * Care Plan - Anaya Carr RN - 02/28/2023 6:10 PM EDT Problem: Pain - Adult Goal: Verbalizes/displays adequate comfort level or baseline comfort level Outcome: Progressing Problem: Safety - Adult Goal: Free from fall injury Outcome: Progressing documented in this [facility]Pro[facility] [id number] Note* Care Coordination - Unknown Case Management - 03/03/2023 11:20 AM EDT Patient Choice Patient Name: RADHA SANDOVAL Date of : 1945 All Providers Sent Referral Name: [facility] Transitional Care Unit SNF Address: [address] [place], [place] [id number] Name: [facility] [employer] Address: [address] [place], [place] [id number] [place] [id number] Note* Care Coordination - Laura Jackson RN - 03/03/2023 9:33 AM EDT Spoke with pt at bedside regarding POA, pt states she is not interested at this time to complete itand would consider completing at [place] - did call Rafaela at [place] to update her as well. [id number] Note* Care Coordination - COLT Hill - 03/03/2023 8:41 AM EDT Transportation arranged through [facility] by cot set for 10 am bead picker. Will notify RN and TCC of this in rounds. Notified patient's son via phone of transportation time. SW remains available if any other needs concerns arise. [place] [id number] Note* Care Coordination - Laura Jackson RN - 03/03/2023 7:29 AM EDT Insurance auth obtained for [facility] longterm [facility], updated Dr Finch notified via Coverity Chat. [facility] [id number] Note* Care Coordination - Laura Jackson RN - 03/02/2023 11:15 AM EDT Received a call from Rafaela at [facility], they are able to accept, pt agreeable. 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 at this time [facility] [id number] NoteHospitalist Progress Note 03/02/2023 [phone]: Please secure chat me for patient care issues. [phone]: Please secure chat [facility] Hospitalist for any issues. Subjective: Admit Date: 02/28/2023 PCP: Shiv Lopez MD Room#: B1-153/B1-153 A Interval History: Tolerating diet. Remains weak. Still urinating frequently. She denies chest pain, sob, cough, abdominal pain, nausea, vomiting, diarrhea, constipation, fevers, or chills. D/w pt Adult diet Regular; Low Sodium (2 gm); 4 carb choices (60 gm/meal) @[id number]@ 24HR INTAKE/OUTPUT: No intake or output data [...] - Date - 03/03 - Location - [facility] - Pending the following - clinical improvement, [...] Information Primary Emergency Contact: Angel Roger Address: [address] [place] Relation: Child GABRIELLE FINCH MD Division of Hospitalist Medicine (more content not included)...[facility] [facility] [id number] Note* Care Coordination - Ester Lipscomb - 03/02/2023 8:40 AM EDT Referral placed to SNF- [facility] via [facility] per TCC request. Await review and response regarding ability to accept. TCC notified. [id number] [facility]Ref[facility] T[facility]. Await review and response regarding ability to accept. TCC notified. [facility]09-14-2023 Note* Care Coordination - Laura Jackson RN - 03/02/2023 8:21 AM EDT Spoke with pt agreeable for referral to [facility], BIOLOGY LECTURER tasked to complete [facility] [id number] NoteSpoke with pt agreeable for referral to [facility], BIOLOGY LECTURER tasked to complete [facility]09-13-2023 Note* Home Care - Alexander Anaya LPN - 03/01/2023 4:25 PM EDT Hair Or Beauty Salon Manager following case for Discharge Needs. Therapy states SNF, but Patient wants HC instead. [facility] [id number] Consult note* Rosalinda Burrows APRN - JORGE - 03/01/2023 2:34 PM EDT Images from the original note were not included. [facility] Wound Care CONSULT Note Radha Sandoval AGE: [...] Uncontrolled type 2 diabetes mellitus with hyperglycemia ([facility]) 01/16/2020 Morbidly obese ([facility]) 01/16/2020 Vitamin D deficiency 01/16/2020 Moderate episode of recurrent major depressive disorder ([facility]) 06/03/2019 OAB (overactive bladder) 05/06/2021 Localized edema 10/01/2020 Insomnia 04/06/2015 Dyspnea on exertion 09/09/2021 Muscle spasms of both lower extremities 09/09/2021 Chronic renal insufficiency, stage III (moderate) ([facility]) 06/03/2019 Restless legs syndrome (RLS) [...] 12/07/2022 Performed by Avery Marshall DO at [facility] ENDOSCOPY EYE SURGERY Bilateral early 90's LUNG [...] tablet 0 ergocalciferol (Vitamin D-2) 1.25 MG (36994 UT) capsule Take 1 capsule (1.25 mg) [...] Care to follow Please follow up at [facility] after hospital discharge. Thank you for the [...] reflectmy own independent evaluation of this patient. [facility] [id number] Consult note* ELSA Rosenbaum CNP - 03/01/2023 2:34 PM EDT Images from the original note were not included. [facility] Wound Care CONSULT Note Radha Sandoval AGE: [...] mellitus with hyperglycemia (HCC) 01/16/2020 Morbidly obese ([facility]) 01/16/2020 Vitamin D deficiency 01/16/2020 Moderate episode of recurrent major depressive disorder ([facility]) 06/03/2019 OAB (overactive bladder) 05/06/2021 Localized edema 10/01/2020 Insomnia 04/06/2015 Dyspnea on exertion 09/09/2021 Muscle spasms of both lower extremities 09/09/2021 Chronic renal insufficiency, stage III (moderate) ([facility]) 06/03/2019 Restless legs syndrome (RLS) [...] 12/07/2022 Performed by Avery Marshall DO at [facility] ENDOSCOPY EYE SURGERY Bilateral early 90's LUNG [...] tablet 0 ergocalciferol (Vitamin D-2) 1.25 MG (16641 UT) capsule Take 1 capsule (1.25 mg) [...] Care to follow Please follow up at [facility] wound care center after hospital discharge. Thank [...] from the original note were not included. [facility] Geriatric Medicine Inpatient Consult Service Admission Date: 02/28/2023 Admission Status: INPATIENT Chief Complaint: "I couldn't get around and they directed me to the hospital because I was peeing constantly from that UTI." Reason for Appointment Geriatrics consulted for "functional decline" Assessment/Plan Principal Problem: LING (acute kidney injury) ([facility]/HCC) ([facility]) Active Problems: Declining functional status [...] necessary I recommended follow up at our [facility] at [phone]. Call in 2 weeks for memory (re)testing once acute issue(s) resolve - [facility] Other I deferred full MMSE [...] chills. Will admit for further evaluation and management." Geriatrics ED screen positive for: lives alone/needs [...] accidents, getting lost. Knows she's here at [facility] due to UTI. States she was feeling [...] Denies recent falls at home. Tells me "I haven't slept much lately. But I slept well overnight." Per my d/w pharmacist Ramona - she recommended starting melatonin and changing paroxetine to at bedtime dosing due to sedating effects of medication. Advance Care Planning Healthcare Power ofAttorney: No Financial Power of Savings Teller: No Living Will:No Code Status: DNRCCA - [...] solution 12.5 g, 12.5 g, IntraVENous, PRN, Alexander Whaley MD enoxaparin (Lovenox) syringe 40 mg, 40 mg, SubCUTAneous, Daily, Gabrielle Finch MD, 40 mg at 03/01/23 0938 glucagon (human recombinant) injection 1 mg, 1 mg, IntraMUSCular, PRN, Gabrielle Finch MD glucose oral gel 15 g, 15 g, Oral, PRN, Alexander Whaley MD Influenza Vac A&B SA Adj quadrivalent (Fluad) vaccine 0.5 mL, 0.5 mL, IntraMUSCular, Prior to discharge, Gabrielle Finch MD Insulin Lispro (Humalog) injection 0-12 Units, 0-12 Units, SubCUTAneous, TID WC, 2 Units at 03/01/23 09 AND Insulin Lispro (Humalog) injection 0-12 Units, [...] 12/07/2022 Performed by Avery Marshall DO at [facility] ENDOSCOPY EYE SURGERY Bilateral early LUNG REMOVAL, PARTIAL Left ROTATOR CUFF REPAIR [...] Limits Permission given to speak with patient automotive sales representative/caregiver as indicated: Yes Confirmation of Payer with patient/family: Yes Payer Name: [employer] Ivins: No Confirmation of Primary Care Physician: Confirmed [...] Prescription Coverage: Yes Pharmacy Used: [facility] Medication Management: Independent Transportation/Shopping: Independent Transportation Mode: [...] NA Interdisciplinary Team Engagement: PT/OT, Home Health Care" Objective: BP 138/57 (BP Location: Right arm) [...] A&OX3 and gets all questions right regarding "911," current [place] President, 3/3 delayed recall, reason [...] recommendations communicated to primary service I used [employer] secure messaging to message Dr. Finch on 03/01/23 at 12:35 to notify that geriatrics consult note has been completed and to page or call my personal cell with any questions. * Michelle Valle RN - 03/01/2023 9:33 AM EDTAssociated Order(s): IP CONSULT TO IT TEACHER This patient is not a new diabetic [...] associated supplies are needed. Thank you. Elder MUÑOZ,BSN,[facility] * Jelly Art Paz, FRUIT SHIPPER - [facility] - 03/01/2023 8:03 AM EDTAssociated Order(s): IP CONSULT TO ENDOCRINOLOGY Department of Internal Medicine Division of Endocrinology, Diabetes, & Metabolism Endocrinology Note Patient Name: Radha Sandoval : 1945 AGE: 77 y.o. Room/Bed: [facility]/[address] Admission Date: 02/28/2023 Visit Date: 03/01/2023 Reason for Endocrine Consult: DM-Uncontrolled Provider/Team Requesting Consult: Dr. Finch PCP: Shiv Lopez MD Outpt Rehab Care Assistant: No ASSESSMENT: Type II diabetes with hyperglycemia, with intermediate manager insulin use Postoperative hypothyroidism PLAN: Humalog 6 [...] diagnosis. She has been having diarrhea in [id number], smt severe Glimepiride- started in 2015 Trulicity [...] HPI. OBJECTIVE: Vitals: 02/28/23 1744 02/28/23 1810 02/28/23 2025 03/01/23 0004 BP: 139/89 (!) 144/65 104/64 (!) [...] CHOLHDLRATIO 4 02/16/2021 No results found for: [id number] Lab Results Component Value Date TSH 0.03 (L) 02/27/2023 Radiology reportsas per the Radiologist Radiology: CT abdomen pelvis wo IV contrast Result Date: 02/28/2023 Patient Name: RADHA SANDOVAL : 1945 [facility]#: [id number] ExamDate/Time: 02/28/2023 13:07 Procedure: CT ABDOMEN PELVIS [...] 12/07/2022 Performed by Avery Marshall DO at [facility] ENDOSCOPY EYE SURGERY Bilateral early 90's LUNG [...] date of this note. documented in this [facility]09-13-2023 NoteHospitalist Progress Note 03/01/2023 [phone]: Please secure chat me for patient care issues. [phone]: Please secure chat [facility] Hospitalist for any issues. Subjective: Admit Date: 02/28/2023 PCP: Shiv Lopez MD Room#: B1-153/B1-153 A Interval History: Feels better. Weak. Tolerating diet. Pain markedly improved. She denies chest pain, sob, cough, abdominal pain, nausea, vomiting, diarrhea, constipation, fevers, or chills. D/w pt and Geriatrics separately. Adult diet Regular; Low Sodium (2 gm); 4 carb choices (60 gm/meal) @[id number]@ 24HR INTAKE/OUTPUT: No intake or output data [...] Contact Information Primary Emergency (more content not included)...[facility] 03-01-2023 Hospital Discharge instructions* Discharge Instructions* [...] You can also try over the counter (SENIOR CARE brand like Nature Made) melatonin 3mg at [...] Information Primary Emergency Contact: Angel Roger Address: [address] [place] Relation: Child Past Surgical History: Past Surgical History: Procedure Laterality Date APPENDECTOMY CHOLECYSTECTOMY 1979 COLONOSCOPY 06/19/2008 COLONOSCOPY W/ BIOPSIES AND POLYPECTOMY N/A 12/07/2022 Performed by Avery Marshall DO at [facility] ENDOSCOPY EYE SURGERY Bilateral early 90's LUNG [...] List * (Principal) LING (acute kidney injury) ([facility]/HCC) ([facility]) Diabetes mellitus due to underlying condition with diabetic chronic kidney disease ([facility]) DDD (degenerative disc disease), lumbar Chronic right-sided low back pain with right-sided sciatica Urinary frequency Chronic left shoulder pain Other chronic sinusitis Gastrointestinal bleed Hypokalemia Wound of right buttock Acute cystitis with hematuria Diarrhea Declining functional status Weakness Anxiety (Chronic) Polypharmacy (Chronic) DNR (do not resuscitate) Dependent edema Uncontrolled type 2 diabetes mellitus with hyperglycemia ([facility]) Morbidly obese ([facility]) Vitamin D deficiency Moderate episode of recurrent major depressive disorder ([facility]) OAB (overactive bladder) Localized edema Insomnia Dyspnea on exertion Muscle spasms of both lower extremities Chronic renal insufficiency, stage III (moderate) ([facility]) Restless legs syndrome (RLS) Hyperlipidemia [...] assistance Toileting Minimal assistance Feeding Minimal assistance Kiln Packer Minimal assistance Med Delivery yes Wound Care Documentation and Therapy: Wound/Incision 02/15/23 Pressure Injury Buttock Right;Midline (Active) Site Assessment Blanchable erythema;Clean;Dry;[place];Red 03/02/23 1100 Wound Length (cm) 1 cm [...] Agency Name: [facility] Donn Mcdaniels Open 24 hours Dialysis Facility (if applicable) Name: Address: Dialysis Schedule: Phone: Fax: Magazine Supervisor/Financial Service Professional signature: ICIAN SECTION Prognosis: good Condition at Discharge: stable Rehab Potential (if transferring to Rehab): excellent Recommended Labs or Other Treatments After Discharge: BMP/CBC in one week. MBS ac and hs Physician Certification: I certify the above information and transfer of Radha Sandoval is necessary for the continuing treatment of the diagnosis listed and that she requires shelter facility for less than 30 days. Update Admission H&P: No change in H&P PHYSICIAN SIGNATURE: documented in this [facility]09-13-2023 Consult note* Adam Holt MD - 03/01/2023 11:26 AM EDTAssociated Order(s): IP CONSULT TO GERIATRICS Images from the original note were not included. [facility] Geriatric Medicine Inpatient Consult Service Admission Date: 02/28/2023 Admission Status: INPATIENT Chief Complaint: "I couldn't get around and they directed me to the hospital because I was peeing constantly from that UTI." Reason for Appointment Geriatrics consulted for "functional decline" Assessment/Plan Principal Problem: LING (acute kidney injury) (CMS/HCC) ([facility]) Active Problems: Declining functional status [...] on her chart. I verbally told nurse Marquez at hospital. Dispo Anticipated discharge; patient would be amenable to home with home health if necessary I recommended follow up at our [facility] at [phone]. Call in 2 weeks for memory (re)testing once acute issue(s) resolve - [facility] Other I deferred full MMSE today due to somnolence and acute infection (UTI, hyperglycemia) but patient was A&OX3 and had 3/3 recall, knew 911 and President of [place] is [place]. Low concern for underlying memory loss/dementia process [...] chills. Will admit for further evaluation and management." Geriatrics ED screen positive for: lives alone/needs [...] accidents, getting lost. Knows she's here at [facility] due to UTI. States she was feeling [...] Denies recent falls at home. Tells me "I haven't slept much lately. But I slept well overnight." Per my d/w pharmacist Ramona - she recommended starting melatonin and changing paroxetine to at bedtime dosing due to sedating effects of medication. Advance Care Planning Healthcare Power ofAttorney: No Financial Power of Savings Teller: No Living Will:No Code Status: DNRCCA - [...] BID, Gabrielle Finch MD, 1 tablet at 03/01/23 0938 baclofen (Lioresal) tablet 10 mg, 10 mg, Oral, Daily, Gabrielle Finch MD, 10 mg at 02/28/232054 busPIRone (Buspar) tablet 5 mg, 5 mg, Oral, BID PRN, Adam Holt MD dextrose 5 % infusion, 100 mL/hr, IntraVENous, PRN, Gabrielle Finch MD dextrose 50 % solution 12.5 g, 12.5 g, IntraVENous, PRN, Alexander Whaley MD enoxaparin (Lovenox) syringe 40 mg, 40 mg, SubCUTAneous, Daily, Gabrielle Finch MD, 40 mg at 03/01/23937 glucagon (human recombinant) injection 1 mg, 1 mg, IntraMUSCular, PRN, Gabrielle Finch MD glucose oral gel 15 g, 15 g, Oral, PRN, Alexander Whaley MD Influenza Vac A&B SA Adj [...] Gabrielle Finch MD, 16 Units at 03/01/23 075 levothyroxine (Synthroid, Levoxyl) tablet 150 mcg, 150 [...] 12/07/2022 Performed by Avery Marshall DO at [facility] ENDOSCOPY EYE SURGERY Bilateral early 90's LUNG [...] Pressure Father LATHA COLEY Asthma Father LATHA VIANCA Hypertension Father LATHA COLEY Diabetes Brother CATRACHO [...] Limits Permission given to speak with patient automotive sales representative/caregiver as indicated: Yes Confirmation of Payer [...] Prescription Coverage: Yes Pharmacy Used: [facility] Medication Management: Independent Transportation/Shopping: Independent Transportation Mode: [...] NA Interdisciplinary Team Engagement: PT/OT, Home Health Care" Objective: BP 138/57 (BP Location: Right arm) [...] A&OX3 and gets all questions right regarding "911," current [place] President, 3/3 delayed recall, reason [...] recommendations communicated to primary service I used [employer] messaging to message Dr. Finch on 03/01/23 at 12:35 to notify that geriatrics consult note has been completed and to page or call my personal cell with any questions. [employer] [id number] Note* Care Coordination - Laura Jackson RN - 03/01/2023 10:14 AM EDT Care Managment Initial Assessment Date: 03/01/2023 Patient Name: Radha Sandoval : 1945 Patient Information Source of Information: Patient Cognition/Language: WFL - Within Functional Limits Permission given to speak with patient automotive sales representative/caregiver as indicated: Yes Confirmation of Payer [...] Prescription Coverage: Yes Pharmacy Used: [facility] Medication Management: Independent Transportation/Shopping: Independent Transportation Mode: [...] in SNF but would be able to [facility]. ROXANA liaison following, TCC to assist and follow as needed. Laura Jackson RN [facility] [id number] Consult note* Michelle Valle RN - 03/01/2023 9:33 AM EDT Associated Order(s): IP CONSULT TO IT TEACHER This patient is not a new diabetic or new to insulin therapy and therefore does not meet our current criteria for the inpatient diabetes education service. The clinical bedside RN should provide any necessary diabetes education using the Diabetes SurvivalSkills Booklet available on the unit. Please consider a dietary consult if appropriate and if not already ordered. Contact [facility] to [facility] pharmacist for assistance if a new glucometer or any associated supplies are needed. Thank you. Elder MUÑOZ,BSN,[facility] [id number] Consult note* Jelly Paz APRN - CHIEF INFORMATION SECURITY OFFICER - 03/01/2023 8:03 AM EDTAssociated Order(s): IP CONSULT TO ENDOCRINOLOGY Department of Internal Medicine Division of Endocrinology, Diabetes, & Metabolism Endocrinology Note Patient Name: Radha Sandoval : 1945 AGE: 77 y.o. Room/Bed: [facility]/[address] Admission Date: 02/28/2023 Visit Date: 03/01/2023 Reason for Endocrine Consult: DM-Uncontrolled Provider/Team Requesting Consult: Dr. Finch PCP: Shiv Lopez MD Outpt Rehab Care Assistant: No ASSESSMENT: Type II diabetes with hyperglycemia, with skilled nursing insulin use Postoperative hypothyroidism PLAN: Humalog 6 [...] diagnosis. She has been having diarrhea in 3724-8433, smt severe Glimepiride- started in 2015 Trulicity [...] CHOLHDLRATIO 4 02/16/2021 No results found for: [id number] Lab Results Component Value Date TSH 0.03 (L) 02/27/2023 Radiology reportsas per the Radiologist Radiology: CT abdomen pelvis wo IV contrast Result Date: 02/28/2023 Patient Name: RADHA SANDOVAL : 1945 ExamDate/Time: 02/28/2023 13:07 Procedure: CT ABDOMEN PELVIS WO IV CONTRAST Ordering Provider: WHALEY, , ALEXANDER Reason For Exam: FLANK PAIN CT SCAN [...] 12/07/2022 Performed by Avery Marshall DO at [facility] ENDOSCOPY EYE SURGERY Bilateral early 90's LUNG [...] state/prognosis on the date of this note. [facility] HospitalTnamyf93-79-2700 NoteProblem: Pain - Adult Goal: Verbalizes/displays adequate comfort level or baseline comfort level Outcome: Progressing Problem: Safety - Adult Goal: Free from fall injury Outcome: [facility]09-12-2023 Plan of care note* Care Plan - Anaya Carr RN - 02/28/2023 6:10 PM EDT Problem: Pain - Adult Goal: Verbalizes/displays adequate comfort level or baseline comfort level Outcome: Progressing Problem: Safety - Adult Goal: Free from fall injury Outcome: Progressing [facility] HospitalZiztrm75-83-8516 History and physical note* Gabrielle Finch MD - 02/28/2023 5:07 PM EDT Images from the original note were not included. Attending History and Physical Admit Date: 02/28/2023 PCP: Shiv Lopze MD CHIEF COMPLAINT: low back pain/dysuria/polyuria/weakness Reason [...] 12/07/2022 Performed by Avery Marshall DO at [facility] ENDOSCOPY EYE SURGERY Bilateral early 90's LUNG [...] None Comment: W/ UNTIL HIS ADMITTANCE TO JAIL Other Topics Concern Not on file Social [...] Mental illness Mother GHANSHYAM VIANCA Depression Mother GHANSHYAMRENEE COLEY Heart disease Father LATHA COLEY High Blood Pressure Father LATHA COLEY Asthma Father LATHA COLEY Hypertension Father LATHA COLEY Diabetes Brother CATRACHO VIANCA Medications Prior to Admission: No current facility-administered [...] tablet 0 ergocalciferol (Vitamin D-2) 1.25 MG (44900 UT) capsule Take 1 capsule (1.25 mg) [...] Information Primary Emergency Contact: Angel Roger Address: [address] [place] Relation: Child Code status: Prior -see [...] H&P to the patient's PCP. Thank you. T [facility] [id number] NoteAttending History and Physical Admit Date: 02/28/2023 [...] 12/07/2022 Performed by Avery Marshall DO at [facility] ENDOSCOPY EYE SURGERY Bilateral early LUNG REMOVAL, PARTIAL Left ROTATOR CUFF REPAIR [...] None Comment: W/ UNTIL HIS ADMITTANCE TO JAIL Other Topics Concern Not on file Social [...] Name Age of Onset Mental illness Mother GHANSHYMA VIANCA Depression Mother GHANSHYAM VIANCA Heart disease Father LATHA VIANCA High Blood [...] tablet 0 ergocalciferol (Vitamin D-2) 1.25 MG (40445 UT) capsule Take 1 capsule (1.25 mg) [...] (150 mcg) by m (more content not included)...[facility]09-12-2023 History and physical note* Gabrielle Finch [...] 12/07/2022 Performed by Avery Marshall DO at [facility] ENDOSCOPY EYE SURGERY Bilateral early 90' LUNG [...] None Comment: W/ UNTIL HIS ADMITTANCE TO JAIL Other Topics Concern Not on file Social [...] Mental illness Mother GHANSHYAM VIANCA Depression Mother GHANSHYAMRENEE COLEY Heart disease Father LATHA COLEY High Blood Pressure Father LATHA COLEY Asthma Father LATHA COLEY Hypertension Father LATHA COLEY Diabetes Brother CATRACHO VIANCA Medications Prior to Admission: No current facility-administered [...] tablet 0 ergocalciferol (Vitamin D-2) 1.25 MG (31243 UT) capsule Take 1 capsule (1.25 mg) [...] Information Primary Emergency Contact: Angel Roger Address: [address] [place] Relation: Child Code status: Prior -see [...] patient's PCP. Thank you. documented in this [facility]09-12-2023 Emergency department Note* Alexander Whaley MD - 02/28/2023 11:28 AM EDT [facility] 1E MED SURG EMERGENCY DEPARTMENT ENCOUNTER Pt Name: Radha Sandoval Birthdate 1945 Date of evaluation: 02/28/2023 Provider: Alexander Whaley MD CHIEF COMPLAINT Chief Complaint Patient [...] BIOPSIES AND POLYPECTOMY N/A 12/07/2022 Performed by Aveyr Marshall DO at [facility] ENDOSCOPY EYE SURGERY Bilateral early 90's LUNG [...] shoulder pain ergocalciferol (Vitamin D-2) 1.25 MG (69459 UT) capsule Take 1 capsule (1.25 mg) [...] None Comment: W/ UNTIL HIS ADMITTANCE TO JAIL Social Determinants of Health Financial Resource Strain: [...] min Stress: No Stress Concern Present (02/28/2023) [employer] - Occupational Stress Questionnaire [...] Problems Addressed: LING (acute kidney injury) (CMS/HCC) ([facility]): complicated acute illness or injury Pyelonephritis: complicated acute illness or injury Amount and/or Complexity of Data Reviewed Labs: ordered. Decision-making details documented in ED Course. Radiology: ordered. Decision-making details documented in ED Course. Risk OTC drugs. Prescription drug management. Decision regarding hospitalization. . All independent interpretations of EKGs are documented in [facility]. ED Course as of 03/02/2324Feb 28, 2023 1332 SODIUM(!): 130 [BJ] 1332 [...] Positive [BJ] ED Course User Index [BJ] Alexander Whaley MD Diagnoses as of 03/02/23 0025 Pyelonephritis LING (acute kidney injury) ([facility]) ([facility]) CONSULTS: IP CONSULT TO ENDOCRINOLOGY IP CONSULT TO GERIATRICS IP CONSULT TO IT TEACHER PHARMACY TO CONSULT INSOMNIA PROCEDURES: Unless otherwise noted below, none Procedures FINAL IMPRESSION 1. LING (acute kidney injury) ([facility]) ([facility]) 2. Pyelonephritis 3. Polypharmacy 4. Insomnia, unspecified type 5. Pressure ulcer of right buttock, stage 3 ([facility]) DISPOSITION/PLAN DISPOSITION Admit 02/28/2023 03:42:32 PM PATIENT REFERRED TO: [facility] Geriatrics [address] [place] [address] [address] [facility] [address] DISCHARGE MEDICATIONS: Current Discharge Medication List @[facility]([id number]:LAST:1)@ (Please note: Portions of this note were completed with a voice recognition program. Efforts were made to edit the dictations but occasionally words and phrases are mis-transcribed.) Form [id number] Alexander Whaley MD (electronically signed) Emergency Medicine Provider Alexander Whaley MD 03/02/23 0025 * Farrah Londono RN - 02/28/2023 11:28 AM EDT Pt presents for admission per her PCP. Was sent to get kidneys evaluated per pt. Pt endorses lower back pain and burning and pain with urination. Was recently admitted. documented in this [facility]09-12-2023 Emergency department Triage note* Farrah Londono RN - 02/28/2023 11:28 AM EDT Pt presents for admission per her PCP. Was sent to get kidneys evaluated per pt. Pt endorses lower back pain and burning and pain with urination. Was recently admitted. [facility]ew[facility] Physician Emergency department Note* Alexander Whaley MD - 02/28/2023 11:28 AM EDT [facility] 1E MED SURG EMERGENCY DEPARTMENT ENCOUNTER Pt Name: Radha Sandoval Birthdate 1945 Date of evaluation: 02/28/2023 Provider: Alexander Whaley MD CHIEF COMPLAINT Chief Complaint Patient [...] 12/07/2022 Performed by Avery Marshall DO at [facility] ENDOSCOPY EYE SURGERY Bilateral early 90' LUNG [...] shoulder pain ergocalciferol (Vitamin D-2) 1.25 MG (13882 UT) capsule Take 1 capsule (1.25 mg) [...] None Comment: W/ UNTIL HIS ADMITTANCE TO JAIL Social Determinants of Health Financial Resource Strain: [...] min Stress: No Stress Concern Present (02/28/2023) [employer] - Occupational Stress Questionnaire [...] Vitals: 03/01/23 0834 03/01/23 0834 03/01/23 0838 03/01/231 BP: 138/57 (!) 159/54 BP Location: Right [...] Problems Addressed: LING (acute kidney injury) (CMS/HCC) ([facility]): complicated acute illness or injury Pyelonephritis: complicated acute illness or injury Amount and/or Complexity of Data Reviewed Labs: ordered. Decision-making details documented in ED Course. Radiology: ordered. Decision-making details documented in ED Course. Risk OTC drugs. Prescription drug management. Decision regarding hospitalization. . All independent interpretations of EKGs are documented in Epiphany. ED Course as of 03/02/2324Feb 28, 2023 1332 SODIUM(!): 130 [BJ] 1332 [...] Positive [BJ] ED Course User Index [BJ] Alexander Whaley MD Diagnoses as of 03/02/23 0025 Pyelonephritis LING (acute kidney injury) ([facility]) ([facility]) CONSULTS: IP CONSULT TO ENDOCRINOLOGY IP CONSULT TO GERIATRICS IP CONSULT TO [facility] TO CONSULT INSOMNIA PROCEDURES: Unless otherwise noted below, none Procedures FINAL IMPRESSION 1. LING (acute kidney injury) ([facility]) ([facility]) 2. Pyelonephritis 3. Polypharmacy 4. Insomnia, unspecified type 5. Pressure ulcer of right buttock, stage 3 ([facility]) DISPOSITION/PLAN DISPOSITION Admit 02/28/2023 03:42:32 PM PATIENT REFERRED TO: [facility] Geriatrics [address] [facility] [address] DISCHARGE MEDICATIONS: Current Discharge Medication List @[facility]([id number]:LAST:1)@ (Please note: Portions of this note were completed with a voice recognition program. Efforts were made to edit the dictations but occasionally words and phrases are mis-transcribed.) Form [id number].[id number] Alexander Whaley MD (electronically signed) Emergency Medicine Provider Alexander Whaley MD 03/02/23 0025 [facility]Apjgpk92-81-9046 Telephone encounter Note* Telephone Encounter - ELSA Arriaza CNP - 02/28/2023 8:30 AM EDT Noted. Patient already notified. See previous TE if needed. [facility] HospitalBvbbgb17-04-0005 Miscellaneous Notes* Telephone Encounter - ELSA Arriaza CNP - 02/28/2023 8:30 AM EDT Noted. Patient already notified. See previous TE if needed. * Telephone Encounter - Imelda Mann RN - 02/28/2023 7:15 AM EDT S: Christine from [facility] [phone] spoke with CAC nurse regarding critical lab results B: Glucose A: Blood was drawn yesterday. Glucose was 524, resulting this morning. Verified with repeat analysis. The lab work was ordered by Katia Granados CNP. R: Since office is open, called back line and spoke with Mignon Schulzs nurse. Result given. No further instructions to the CAC nurse. Reason for Disposition Lab or radiology calling with CRITICAL test results Protocols used: PCP Call - No [id number]-[id number]-VP documented in this encounterSProMedica Toledo HospitalLjsuzc70-19-3802 Telephone encounter Note* Telephone Encounter - Imelda Mann RN - 02/28/2023 7:15 AM EDT S: Christine from [facility] [phone] spoke with CAC nurse regarding critical lab results B: Glucose A: Blood was drawn yesterday. Glucose was 524, resulting this morning. Verified with repeat analysis. The lab work was ordered by Katia Granados CNP. R: Since office is open, called back line and spoke with Mignon Schulzs nurse. Result given. No further instructions to the CAC nurse. Reason for Disposition Lab or radiology calling with CRITICAL test results Protocols used: PCP Call - No Ngmntr-MQGZG-YN [facility] HospitalHdhtfn40-46-4067 Evaluation + Plan note* Assessment & Plan Note - ELSA Arriaza CNP - 02/27/2023 5:18 PM EDTAssociated Problem(s): Diarrhea No fever or chills, abdomen soft. Unknown etiology. Will check CBC and CMP. Consider stool culture if symptoms continue [facility] HospitalWlvjyp01-81-6844 Miscellaneous Notes* Assessment & Plan Note - [...] fatigue * Assessment & Plan Note - ESLA Arriaza CNP - 02/27/2023 5:15 PM EDTAssociated Problem(s): Wound of right buttock Patient has not followed up with wound center upon visualization today wound unchanged, advised to keep area as clean as possible with frequent changes of incontinence pads * Assessment & Plan Note - ELSA Arriaza CNP - 02/27/2023 5:14 PM EDTAssociated Problem(s): 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 Patient having difficulties with compliance. Continue insulin regimen. Possible increased glucose due to urinary tract infection we will treat documented in this encounterSProMedica Toledo HospitalYczuhf54-81-2237 Evaluation + Plan note* Assessment & Plan Note - ELSA Arriaza CNP - 02/27/2023 5:17 PM EDTAssociated Problem(s): Chronic renal insufficiency, stage III (moderate) ([facility]) We will check CMP today [facility] HospitalXkblcc21-28-3854 Evaluation + Plan note* Assessment & Plan Note - ELSA Arriaza CNP - 02/27/2023 5:17 PM EDTAssociated Problem(s): Acute cystitis with hematuria UA positive nitrites and leuks moderate blood, will start antibiotic therapy sent for culture [facility] HospitalPdgntc25-04-0870 Evaluation + Plan note* Assessment & Plan Note - ELSA Arriaza CNP - 02/27/2023 5:17 PM EDTAssociated Problem(s): Hypertension Controlled. Continue amlodipine 10 mg daily and lisinopril 40 mg daily [facility] HospitalVssadd27-44-5565 Evaluation + Plan note* Assessment & Plan Note - ELSA Arriaza CNP - 02/27/2023 5:16 PM EDTAssociated Problem(s): Hypothyroidism Will check TSH today due to recent fatigue [facility] HospitalWwrjcz12-07-9490 Evaluation + Plan note* Assessment & Plan Note - ELSA Arriaza CNP - 02/27/2023 5:15 PM EDTAssociated Problem(s): Wound of right buttock Patient has not followed up with wound center upon visualization today wound unchanged, advised to keep area as clean as possible with frequent changes of incontinence pads [facility] HospitalJizzxe68-86-0791 Evaluation + Plan note* Assessment & Plan Note - ELSA Arriaza CNP - 02/27/2023 5:14 PM EDTAssociated Problem(s): 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 Patient having difficulties with compliance. Continue insulin regimen. Possible increased glucose due to urinary tract infection we will treat [facility] HospitalVdglib50-78-6656 History of Present illness Narrative* Magda Lomas [...] her blood sugar today, noted In office jojxg-cl-kruy testing 494. Urination Increased frequency, dysuria intermittently. [...] out soon. Has Maximino (son) work in [employer]. He may be able to help her [...] Lopez MD ergocalciferol (Vitamin D-2) 1.25 MG (70248 UT) capsule Take 1 capsule (1.25 mg) [...] by mouth daily. 01/13/23 04/13/23 Yes Katia Granados APRN - JORGE lisinopril 40 MG tablet Take 1 tablet (40 mg) by mouth daily. 12/08/22 Yes Katiajareth Granados APRN - JORGE meloxicam (Mobic) 7.5 MG tablet Take 1 tablet (7.5 mg) by mouth daily. 02/07/23 Yes Katia Granados APRN - JORGE PARoxetine (Paxil) 20 MG tablet Take 1 tablet (20 mg) by mouth every morning. 12/08/22 Yes Katia Granados APRN - JORGE potassium chloride CR (K-Tab) 20 MEQ ER tablet Take 20 mEq by mouth daily. Do not crush, chew, or split. Yes Historical Provider, pramipexole (Mirapex) 0.125 MG tablet Take 2 tablets (0.25 mg) by mouth Nightly. 01/13/23 03/14/23 Yes Katia Granados APRN - JORGE rosuvastatin (Crestor) 10 MG tablet Take 1 tablet (10 mg) by mouth daily. 12/08/22 Yes Katia Granados APRN - JORGE hydrOXYzine HCl (Atarax) 25 MG tablet Take 1 tablet (25 mg) by mouth every 8 hours as needed for anxiety. 12/08/22 02/07/23 Katia Granados APRN - JORGE zolpidem (Ambien) 10 MG tablet Take 1 tablet (10 mg) by mouth Nightly as needed for sleep. Do not start before December 22, 2022. 12/22/22 02/07/23 Katia Granados APRN - JORGE insulin aspart (NovoLOG FLEXPEN) 100 [...] CNP 02/27/2023 5:19 PM documented in this encounterSProMedica Toledo HospitalCklymg19-60-5475 Evaluation note* Diagnosis Diabetes mellitus due to [...] Diarrhea, unspecified type documented in this encounter [facility] HospitalAhgpbg03-97-0859 Telephone encounter Note* Telephone Encounter - Nan Bush RN - 02/23/2023 12:49 PM EDT S: Patient spoke with [facility] nurse regarding High Blood Sugar number possible [...] seen Protocols used: Diabetes - High Blood Lflhi-OLAMU-ZW [facility] HospitalJilrxm14-98-6064 Miscellaneous Notes* Telephone Encounter - Nan Bush RN - 02/23/2023 12:49 PM EDT S: Patient spoke with [facility] nurse regarding High Blood Sugar number possible [...] seen Protocols used: Diabetes - High Blood Hpkej-HZYZL-JD documented in this [facility]08-30-2023 Hospital Discharge instructions* Patient Instructions* Tejal Henry RN - 02/15/2023 12:45 PM EDT Return in [address] Magallanes If you have any questions or concerns, please call our wound center at [phone] or [phone]. Offloading Try to avoid pressure and sheering [...] to help improve healing. documented in this [facility]08-30-2023 [facility] Care Visit - New Patient Progress Note [...] 12/07/2022 Performed by Avery Marshall DO at [facility] ENDOSCOPY EYE SURGERY Bilateral early 90's LUNG [...] Rfl: 0 ergocalciferol (Vitamin D-2) 1.25 MG (15014 UT) capsule, Take 1 capsule (1.25 mg) [...] None Comment: W/ UNTIL HIS ADMITTANCE TO JAIL Other Topics Concern Not on file Social [...] Blood Pressure Father LATHA (more content not included)...[facility]08-22-2023 Evaluation + Plan note* Assessment & Plan Note - ELSA Arriaza CNP - 02/07/2023 12:51 PM EDTAssociated Problem(s): Chronic left shoulder pain Chronic. Refill mobic. [facility] HospitalTmwznv87-36-8819 Evaluation + Plan note* Assessment & Plan Note - ELSA Arriaza CNP - 02/07/2023 12:51 PM EDTAssociated Problem(s): Wound of right buttock Avoid pressure to area, avoid friction, keep area as dry as possible. Refer to wound clinic. [facility] HospitalSfpqbw37-43-3312 Miscellaneous Notes* Assessment & Plan Note - ELSA Arriaza CNP - 02/07/2023 12:51 PM EDTAssociated Problem(s): Chronic left shoulder pain Chronic. Refill mobic. * Assessment & Plan Note - ELSA Arriaza CNP - 02/07/2023 12:51 PM EDTAssociated Problem(s): Wound of right buttock Avoid pressure to area, avoid friction, keep area as dry as possible. Refer to wound clinic. documented in this [facility]08-22-2023 History of Present illness Narrative* ELSA Arriaza [...] by mouth daily. 12/08/22 ELSA Arriaza CNP baclofen (Lioresal) 10 MG tablet Take 1 tablet (10 mg) by mouth daily. 01/13/23 ELSA Arriaza CNP ergocalciferol (Vitamin D-2) 1.25 MG (48699 UT) capsule Take 1 capsule (1.25 mg) [...] and Date of . PHARMACY VERIFIED WITH PATIENT-BRENDA FUENTES [place]. documented in this encounterSProMedica Toledo HospitalZtytdg08-60-0266 Telephone encounter Note* Telephone Encounter - Betty Gonzalez MA - 01/25/2023 3:01 PM EDT Patient notified. [facility] HospitalBchknr72-70-5588 Miscellaneous Notes* Telephone Encounter - Betty Gonzalez [...] EDT S: The patient is calling the [facility] About muscle spasms B: She has been [...] days Protocols used: Muscle Aches and Body Wvla-NUOQF-KG documented in this encounterSProMedica Toledo HospitalTzonsf17-12-7950 Telephone encounter Note* Telephone Encounter - Shiv Lopez MD - 01/25/2023 2:39 PM EDT If the muscle spasms got worse with the muscle relaxer stop the muscle relaxer, I am not sure what else we can do especially if they have been going on for years. We could try quinine. [facility] HospitalFhrplk37-32-0880 Telephone encounter Note* Telephone Encounter - Colette Poole RN - 01/25/2023 1:23 PM EDT S: The patient is calling the [facility] About muscle spasms B: She has been [...] days Protocols used: Muscle Aches and Body Geak-JLPST-MT [facility] HospitalHsfmjy62-34-9247 Telephone encounter Note* Telephone Encounter - ELSA Arriaza CNP - 01/13/2023 11:12 AM EDT Reviewed chart. Refill appropriate. RX sent. [facility] HospitalXuarwq05-55-2717 Miscellaneous Notes* Telephone Encounter - ELSA Arriaza [...] 12/08/22, vit D 07/18/2022 documented in this [facility]07-28-2023 Telephone encounter Note* Telephone Encounter - Mya Foster MA - 01/13/2023 8:52 AM EDT Prescription Request: Last medication check: 10/25/2022 Last physical exam: 04/26/2022 Last completed appointment: 12/13/22 Next scheduled appointment: 01/25/2023 Last date of refill on this medication: Mirapex 12/13/22, baclofen and synthroid 12/08/22, vit D 07/18/2022 [facility] HospitalOmutqy12-74-9451 Telephone encounter Note* Telephone Encounter - ELSA Arriaza CNP - 12/08/2022 5:20 PM EDT Reviewed chart. Refill appropriate. RX sent. [facility] HospitalMklfey39-52-9031 Miscellaneous Notes* Telephone Encounter - ELSA Arriaza [...] 90 day 1 refill documented in this encounterSProMedica Toledo HospitalXirhex57-35-8477 Telephone encounter Note* Telephone Encounter - Syl Kumar MA - 12/08/2022 1:53 PM EDT Prescription Request: Last medication check: 10/25/22 Last physical exam: 04/26/22 Next scheduled appointment: 01/25/23 CSA on file (date): 02/02/22 Last urine drug screen: none Last date of refill on this medication Baclofen 10/04/22 30 tablets no refill Levothyroxine 10/04/22 30 day 1 refill Crestor 06/14/22 90 day 1 refill [facility] HospitalLctwmp01-02-8804 Plan of care note* Care Plan - [...] integrity is maintained or improved Outcome: Completed [facility] HospitalTnqvzw89-86-9278 Miscellaneous Notes* Care Plan - Lambert Kaur [...] Please call the Main Endoscopy Dept at [phone] for questions. * Op Note - Avery Marshall DO - 12/07/2022 7:48 AM EDT [facility] Name: Radha Sandoval Procedure Date: 12/07/2022 7:48 AM Gender: Female Date of : 1945 Age: 77 Admit Type: Inpatient Note Status: Finalized Endoscopist: Avery Marshall DO, [id number] Procedure: Colonoscopy Indications: Hematochezia Findings: The perianal [...] immediate complications. Procedure Code(s): --- Professional --- 09365, Colonoscopy, flexible; with removal of tumor(s), polyp(s), or other lesion(s) by snare technique --- Technical --- 51840, Colonoscopy, flexible; with removal of tumor(s), polyp(s), [...] or abscess without bleeding CPT copyright 2021 [employer]. All rights reserved. The codes documented in this report are preliminary and upon network liaison review may be revised to meet current [...] Limits Permission given to speak with patient automotive sales representative/caregiver as indicated: Yes Confirmation of Payer with patient/family: Yes Payer Name: [employer] Ivins: No Confirmation of Primary Care Physician: Confirmed [...] Prescription Coverage: Yes Pharmacy Used: [facility] Medication Management: Independent Transportation/Shopping: Independent Transportation Mode: [...] needed. Laura Jackson RN documented in this [facility]06-21-2023 Hospital Discharge instructions* Discharge Instr - Activity* Gabrielle Finch MD - 12/07/2022 1:48 PM EDT As tolerated * Discharge Instr - Diet* Gabrielle Finch MD - 12/07/2022 1:49 PM EDT Carb control diet documented in this [facility]06-21-2023 Hospital course Narrative* Gabrielle Finch MD - 12/07/2022 1:30 PM EDT Seen and examined. Full note to follow documented in this [facility]06-21-2023 Note* Care Coordination - Laura Jackson RN [...] Stay (Days): 2 GMLOS: No GMLOS Documented [facility] HospitalBlwmrw73-47-1652 Note* Care Coordination - Laura Jackson RN [...] Stay (Days): 2 GMLOS: No GMLOS Documented [id number] Note* Perioperative Nursing Note - Ashley Dickens RN - 12/07/2022 9:57 AM EDT POST ENDOSCOPY PROCEDURE TRANSFER REPORT Physician: Dr. Marshall Procedure completed: colonoscopy Specimens obtained: Yes Medications administered: See MAR Findings: see MD report Complications: none Please call the Main Endoscopy Dept at [phone] for questions. [id number] Note* Perioperative Nursing Note - Ashley Dickens RN - 12/07/2022 9:57 AM EDT POST ENDOSCOPY PROCEDURE TRANSFER REPORT Physician: Dr. Marshall Procedure completed: colonoscopy Specimens obtained: Yes Medications administered: See MAR Findings: see MD report Complications: none Please call the Main Endoscopy Dept at [phone] for questions. [facility] HospitalJjubhj33-80-7960 History of Present illness Narrative* Edelmira Hanna - 12/07/2022 7:58 AM EDT Patient has been NPO/ CLRS x3 days without adequate nutrition. Patient referred to RD. * Lani Bolton, LINKER UP - 12/06/2022 5:38 PM EDT [facility] Respiratory Care Department Progress Note As part [...] note were not included. Hospitalist Progress Note 12/06/[id number]: Please secure chat me for patient care issues. [phone]: Please secure chat [facility] Hospitalist for any issues. Subjective: Admit Date: 12/05/2022 PCP: Shiv Lopez MD Room#: B1-148/B1148 A Interval History: She is weak. Still with bleeding. Not dizzy. She denies chest pain, sob, abdominal pain, nausea, vomiting, diarrhea, constipation, fevers, or chills. Awaiting colonoscopy. D/w pt Adult diet Clear Liquid NPO diet NPO except: Sips of Water with Meds @YVRV1XQMZAK@ 24HR INTAKE/OUTPUT: Intake/Output Summary (Last 24 hours) [...] PROT 7.2 PT/INR: Recent Labs 12/05/22 1730 12/06/2215 PROTIME 11.0 11.2 INR 1.0 1.0 CARDIAC [...] Extended Emergency Contact Information Primary Emergency Contact: LorraineJered fernandezmario Address: [address] [place] Relation: Child GABRIELLE FINCH MD Division of Hospitalist Medicine [place] [facility] PAGER: Epic chat documented in this [facility]06-21-2023 Note* Op Note - Avery Marshall DO - 12/07/2022 7:48 AM EDT [facility] Patient Name: Radha Sandoval Procedure Date: 12/07/2022 7:48 AM Gender: Female Date of : 1945 Age: 77 Admit Type: Inpatient Note Status: Finalized Endoscopist: Avery Marshall DO, [id number] Procedure: Colonoscopy Indications: Hematochezia Findings: The perianal [...] immediate complications. Procedure Code(s): --- Professional --- 13585, Colonoscopy, flexible; with removal of tumor(s), polyp(s), or other lesion(s) by snare technique --- Technical --- 45637, Colonoscopy, flexible; with removal of tumor(s), polyp(s), [...] or abscess without bleeding CPT copyright 2021 [employer]. All rights reserved. The codes documented in this report are preliminary and upon network liaison review may be revised to meet current compliance requirements. Attending Participation: I personally performed the entire procedure. Avery Marshall DO 12/07/2022 9:46:22 AM This report has been signed electronically. Number of Addenda: 0 Note Initiated On: 12/07/2022 7:48 AM Outsell Phone: 1(511) 612-771006-21-2023 Note* Op Note - Avery Marshall DO - 12/07/2022 7:48 AM EDT [facility] Patient Name: Radha Sandoval Procedure Date: 12/07/2022 7:48 AM Gender: Female Date of : 1945 Age: 77 Admit Type: Inpatient Note Status: Finalized Endoscopist: Avery Marshall DO, [id number] Procedure: Colonoscopy Indications: Hematochezia Findings: The perianal [...] immediate complications. Procedure Code(s): --- Professional --- 66556, Colonoscopy, flexible; with removal of tumor(s), polyp(s), or other lesion(s) by snare technique --- Technical --- 68335, Colonoscopy, flexible; with removal of tumor(s), polyp(s), [...] or abscess without bleeding CPT copyright 2021 [employer]. All rights reserved. The codes documented in this report are preliminary and upon network liaison review may be revised to meet current compliance requirements. Attending Participation: I personally performed the entire procedure. Avery Marshall DO 12/07/2022 9:46:22 AM This report has been signed electronically. Number of Addenda: 0 Note Initiated On: 12/07/2022 7:48 AM Outsell Phone: 1(666) 941-496506-20-2023 Note* Care Coordination - Laura Jackson RN - 12/06/2022 10:36 AM EDT Care Managment Initial Assessment Date: 12/06/2022 Patient Name: Radha Sandoval : 1945 Patient Information Source of Information: Patient Cognition/Language: WFL - Within Functional Limits Permission given to speak with patient automotive sales representative/caregiver as indicated: Yes Confirmation of Payer with patient/family: Yes Payer Name: Jacob Ivins: No Confirmation of Primary Care Physician: Confirmed [...] Prescription Coverage: Yes Pharmacy Used: [facility] Medication Management: Independent Transportation/Shopping: Independent Transportation Mode: [...] and follow as needed. Laura Jackson RN [facility] HospitalTudsrg24-16-6538 Note* Care Coordination - Laura Jackson RN - 12/06/2022 10:36 AM EDT Care Managment Initial Assessment Date: 12/06/2022 Patient Name: Radha Sandoval : 1945 Patient Information Source of Information: Patient Cognition/Language: WFL - Within Functional Limits Permission given to speak with patient automotive sales representative/caregiver as indicated: Yes Confirmation of Payer [...] Prescription Coverage: Yes Pharmacy Used: [facility] Medication Management: Independent Transportation/Shopping: Independent Transportation Mode: [...] follow as needed. Laura Jackson RN T [facility] HospitalPdkpqe20-24-4015 Consult note* Malcolm Rodriguez MD - 12/06/2022 [...] Arriaza CNP ergocalciferol (Vitamin D-2) 1.25 MG (92703 UT) capsule Take 1 capsule (1.25 mg) [...] (10 mg) by mouth daily. 06/14/22 Katia Gregfernandez, FRUIT SHIPPER - CHIEF INFORMATION SECURITY OFFICER zolpidem (Ambien) 10 MG tablet Take 1 [...] 12/05/2022 [facility]: [facility]OVAL : 1945 [id number] ExamDate/Time: 12/05/2022 15:39 Procedure: CT ABDOMEN PELVIS [...] visualized. Report Dictated on Electronically Signed By: Reece Chandra Electronically Signed Date/Time: 12/05/2022 3:55 PM [...] the patient/guardian/responsible accompanying adult who is agreeable. Outsell Phone: 1(899) 437-839106-20-2023 Consult note* Malcolm Rodriguez MD - 12/06/2022 [...] History: Procedure Laterality Date ABDOMINAL SURGERY mid APPENDECTOMY CHOLECYSTECTOMY COLONOSCOPY 06/19/2008 EYE SURGERY early [...] Arriaza CNP ergocalciferol (Vitamin D-2) 1.25 MG (96703 UT) capsule Take 1 capsule (1.25 mg) [...] 12/05/2022 Patient Name: RADHA SANDOVAL : 1945 [facility]#: [id number] ExamDate/Time: 12/05/2022 15:39 Procedure: CT ABDOMEN PELVIS [...] visualized. Report Dictated on Electronically Signed By: Reece Chandra Electronically Signed Date/Time: 12/05/2022 3:55 PM [...] adult who is agreeable. documented in this encounterSProMedica Toledo HospitalOrntmh63-77-2556 Emergency department Note* Abby Kahn RN - 12/05/2022 8:30 PM EDT Provided pt with water and opalo Abby Kahn RN 12/05/222200 [facility]ked[facility]30-92-3534 Emergency department Note* Abby Kahn RN - 12/05/2022 8:30 PM EDT Provided pt with water and jello Abby Kahn RN 12/05/222200 * Abby Kahn RN - 12/05/2022 6:[address] Velarde notified pt has filled x 3 bedpan with bloody stools and clots Abby Kahn RN 12/05/22 181 * Abby Kahn RN - 12/05/2022 5:10 [...] IV that was placed in R AC. OUTSIDE SALES MANAGER called to place a new IV Abby Kahn RN 12/05/22 1403 * ANASTASIA Molina - 12/05/2022 10:43 AM EDT [facility] ED eMERGENCY dEPARTMENT eNCOUnter Pt Name: Radha [...] mouth daily. ERGOCALCIFEROL (VITAMIN D-2) 1.25 MG (01161 UT) CAPSULE Take 1 capsule (1.25 mg) [...] illness Mother GHANSHYAM COLEY Depression Mother GHANSHYAM VIANCA Heart disease Father LATHA COLEY High Blood Pressure Father LATHA COLEY Asthma Father LATHA COLEY Hypertension Father LATHA VIANCA Diabetes Brother CATRACHO VIANCA SOCIAL HISTORY Social [...] None Comment: W/ UNTIL HIS ADMITTANCE TO JAIL Social Determinants of Health Financial Resource Strain: [...] (*) Narrative: Performed by: [facility], [address] [place] [address] [place] [address] CLIA ID: [id number] HEPATIC FUNCTION PANEL - Normal BILIRUBIN, TOTAL [...] sepsis, or septic shock (If yes use ".sepsiscoremeasure"): No FINAL IMPRESSION 1. Acute lower GI bleeding DISPOSITION/PLAN DISPOSITION Admit 12/05/2022 04:29:20 PM PATIENT REFERRED TO: No follow-up provider specified. DISCHARGE MEDICATIONS: New Prescriptions No medications on file @[facility]([id number]:LAST:1)@ (Please note: Portions of this note were completed with a voice recognition program. Efforts were made to edit thedictations but occasionally words and phrases are mis-transcribed.) Form v2016.J.[id number] ANASTASIA MOLINA (electronically signed) Emergency Medicine Provider ANASTASIA Molina 12/05/22 1748 * Anusha Velarde MD - 12/05/2022 10:43 AM EDT Emergency Department Encounter [facility] ED Patient: Radha Sandoval : 1945 Date [...] Given 12/05/22 1538) ED Course as of 12/05/221851Dec 05, 20221815 I assessed the patient after [...] hx of GI bleed. documented in this [facility]06-19-2023 Nurse Note* Sis Archibald RN - 12/05/2022 8:[address] Durbin requesting 18g U/S IV placed d/t GIB. No suitable options for an 18g PIV to be placed at this time. Pt also refusing for Left arm to be used. Dr. Hammer notified. [facility] HospitalMondkx83-76-5390 Nurse Note* Sis Archibald RN - 12/05/2022 8:[address] Durbin requesting 18g U/S IV placed d/t GIB. No suitable options for an 18g PIV to be placed at this time. Pt also refusing for Left arm to be used. Dr. Hammer notified. documented in this [facility]06-19-2023 Emergency department Note* Abby Kahn RN - 12/05/2022 6:[address] Velarde notified pt has filled x 3 bedpan with bloody stools and clots Abby Kahn RN 12/05/22 1812 [facility] HospitalDuxlld88-16-5785 Emergency department Note* Abby Kahn RN - 12/05/2022 5:10 PM EDT Ashley (ANASTASIA) made aware that pt has had 2 large bloody BM's at this point Abby Kahn RN 12/05/22 1733 [facility] HospitalVixjga69-11-9285 History and physical note* Bertram Durbin MD [...] None Comment: W/ UNTIL HIS ADMITTANCE TO JAIL Other Topics Concern Not on file Social [...] tablet 0 ergocalciferol (Vitamin D-2) 1.25 MG (31989 UT) capsule Take 1 capsule (1.25 mg) [...] Information Primary Emergency Contact: Angel Roger Address: [address] [place] Relation: Child Code status: No [...] H&P to the patient's PCP. Thank you. [facility] Work Phone: 1(547) 843-318106-19-2023 History and physical note* Bertram Durbin MD [...] History: Procedure Laterality Date ABDOMINAL SURGERY mid APPENDECTOMY CHOLECYSTECTOMY COLONOSCOPY 06/19/2008 EYE SURGERY early [...] None Comment: W/ UNTIL HIS ADMITTANCE TO JAIL Other Topics Concern Not on file Social [...] tablet 0 ergocalciferol (Vitamin D-2) 1.25 MG (49051 UT) capsule Take 1 capsule (1.25 mg) [...] Information Primary Emergency Contact: Angel Roger Address: [address] [place] Relation: Child Code status: No [...] patient's PCP. Thank you. documented in this [facility]06-19-2023 Emergency department Note* Abby Kahn RN - 12/05/2022 4:58 PM EDT Pt had large bloody BM Abby Kahn RN 12/05/22 1658 [facility] HospitalWmuvob88-24-3151 Emergency department Note* bAby Kahn RN - 12/05/2022 2:[address] stated they were unable to use US IV that was placed in R AC. OUTSIDE SALES MANAGER called to place a new IV Abby Kahn RN 12/05/22 1403 [facility] HospitalLqadrg75-59-6771 Emergency department Triage note* Maday Borja RN - 12/05/2022 10:43 AM EDT Pt reports bright red blood with blood clots in her brief this AM, denies use of blood thinners or hx of GI bleed. [facility] HospitalZwdodf06-57-7621 Physician Emergency department Note* ANASTASIA Molina - 12/05/2022 10:43 AM EDT [facility] ED eMERGENCY dEPARTMENT eNCOUnter Pt Name: Radha [...] mouth daily. ERGOCALCIFEROL (VITAMIN D-2) 1.25 MG (97292 UT) CAPSULE Take 1 capsule (1.25 mg) [...] None Comment: W/ UNTIL HIS ADMITTANCE TO JAIL Social Determinants of Health Financial Resource Strain: [...] (*) Narrative: Performed by: [facility], [address] [place] [address] [place] [address] CLIA ID: [id number] HEPATIC FUNCTION PANEL - Normal BILIRUBIN, TOTAL [...] sepsis, or septic shock (If yes use ".sepsiscoremeasure"): No FINAL IMPRESSION 1. Acute lower GI bleeding DISPOSITION/PLAN DISPOSITION Admit 12/05/2022 04:29:20 PM PATIENT REFERRED TO: No follow-up provider specified. DISCHARGE MEDICATIONS: New Prescriptions No medications on file @[facility]([id number]:LAST:1)@ (Please note: Portions of this note were completed with a voice recognition program. Efforts were made to edit thedictations but occasionally words and phrases are mis-transcribed.) Form v2016.J.[id number] ANASTASIA MOLINA (electronically signed) Emergency Medicine Provider ANASTASIA Molina 12/05/22 1748 [facility] HospitalGogdep99-36-1757 Physician Emergency department Note* Anusha Velarde MD - 12/05/2022 10:43 AM EDT Emergency Department Encounter [facility] ED Patient: Radha Sandoval : 1945 Date [...] Given 12/05/22 1538) ED Course as of 12/05/221851Dec 05, 20221815 I assessed the patient after [...] MD 12/05/22 1638 Anusha Velarde MD 12/05/221851 [facility] Phone: 1(806) 753-881506-19-2023 Telephone encounter Note* Telephone Encounter - Katia Granados APRN - CHIEF INFORMATION SECURITY OFFICER - 12/05/2022 9:44 AM EDT Noted. Agree with disposition. [facility] HospitalQxjwud96-58-9680 Miscellaneous Notes* Telephone Encounter - ELSA Arriaza CNP - 12/05/2022 9:44 AM EDT Noted. Agree with disposition. * Telephone Encounter - Sruthi Burns RN - 12/05/2022 9:22 AM EDT S: Patient spoke with [facility] nurse regarding rectal bleeding. B: Onset of symptoms/concern: started today. A: Pt states she has severe rectal bleeding, started today, bleeding from rectum continuously, states passing clots, states large amount of bleeding. States she has mild dizziness/shakiness at this time. R: Advised to go to the ED now, advised to have someone drive her, states she will go to [facility]. No further needs at this time. Patient instructed to call back with new or worsening symptoms. Advised to call 911 if she worsens or feels like she might pass out. Patient verbalizes understanding. Reason for Disposition SEVERE rectal bleeding (large blood clots; constant or on and off bleeding) Protocols used: Rectal Ooaaymtz-YLSKL-QK documented in this [facility]06-19-2023 Telephone encounter Note* Telephone Encounter - Sruthi Burns RN - 12/05/2022 9:22 AM EDT S: Patient spoke with [facility] nurse regarding rectal bleeding. B: Onset of symptoms/concern: started today. A: Pt states she has severe rectal bleeding, started today, bleeding from rectum continuously, states passing clots, states large amount of bleeding. States she has mild dizziness/shakiness at this time. R: Advised to go to the ED now, advised to have someone drive her, states she will go to [facility]. No further needs at this time. Patient instructed to call back with new or worsening symptoms. Advised to call 911 if she worsens or feels like she might pass out. Patient verbalizes understanding. Reason for Disposition SEVERE rectal bleeding (large blood clots; constant or on and off bleeding) Protocols used: Rectal Vgnqigfd-WTIIO-QW [facility] HospitalHvfrsi97-71-7658 Telephone encounter Note* Telephone Encounter - Mya Foster MA - 10/05/2022 3:55 PM EDT ----- Message from ELSA Arriaza CNP sent at 10/05/2022 3:52 PM EDT ----- Hemoglobin A1c 9- recommend increasing novolog dose by 2 units- (from 14 to 16), send glucose readings to office in 1 week. Notified, can you please update sig? Thanks! [place] [id number] Miscellaneous Notes* Telephone Encounter - Mya Foster MA - 10/05/2022 3:55 PM EDT ----- Message from ELSA Arriaza CNP sent at 10/05/2022 3:52 PM EDT ----- Hemoglobin A1c 9- recommend increasing novolog dose by 2 units- (from 14 to 16), send glucose readings to office in 1 week. Notified, can you please update sig? Thanks! documented in this [facility]02-24-2023 Telephone encounter Note* Telephone Encounter - Stefani ClarkClaudine Abraham - 08/12/2022 9:38 AM EST Medication [...] prior to picking up the medication: Yes [facility] Tddadn91-16-1559 Miscellaneous Notes* Telephone Encounter - Stefani Abraham [...] up the medication: Yes documented in this [facility]02-07-2023 Telephone encounter Note* Telephone Encounter - Shiv Lopez MD - 07/26/2022 8:29 AM EST Rx sent [facility] HospitalDymfyv99-11-7561 Miscellaneous Notes* Telephone Encounter - Shiv Lopez MD - 07/26/2022 8:29 AM EST Rx sent * Addendum Note - Mya Foster MA - 07/26/2022 7:57 AM ESTAddended by: MYA FOSTER on: 07/26/2022 07:57 AM Modules accepted: Orders * Telephone Encounter - Georgette Fatima - 07/26/2022 [...] (see medication tab): 05/03/2022 documented in this encounterSProMedica Toledo HospitalVhzgux58-47-6901 Note* Addendum Note - Mya Foster MA - 07/26/2022 7:57 AM ESTAddended by: MYA FOSTER on: 07/26/2022 07:57 AM Modules accepted: Orders [facility] HospitalRlmknp50-89-4423 Note* Addendum Note - Mya Foster MA - 07/26/2022 7:57 AM ESTAddended by: MYA FOSTER on: 07/26/2022 07:57 AM Modules accepted: Orders [facility] Ppomwh55-63-3964 Telephone encounter Note* Telephone Encounter - Georgette [...] of last refill (see medication tab): 05/03/2022 [facility] Vrhklj36-17-2304 Telephone encounter Note* Telephone Encounter - ELSA Arriaza CNP - 07/18/2022 9:56 AM EST Reviewed chart. Refill appropriate. RX sent. [facility] HospitalMfjoza95-41-9924 Miscellaneous Notes* Telephone Encounter - ELSA Arriaza CNP - 07/18/2022 9:56 AM EST Reviewed chart. Refill appropriate. RX sent. * Telephone Encounter - Magda Lomas - 07/18/2022 9:39 AM EST Prescription Request: Last medication check: 06/30/22 Last physical exam: 04/26/22 Next scheduled appointment: 09/30/22 Last date of refill on this medication 06/14/22 documented in this encounterSProMedica Toledo HospitalKnbbbc29-70-9481 Telephone encounter Note* Telephone Encounter - Magda Lomas - 07/18/2022 9:39 AM EST Prescription Request: Last medication check: 06/30/22 Last physical exam: 04/26/22 Next scheduled appointment: 09/30/22 Last date of refill on this medication 06/14/22 [facility] HospitalLxzmfb53-83-9359 Telephone encounter Note* Telephone Encounter - Ashley Haider MA - 07/13/2022 1:06 PM EST Attempted to call patient to help her schedule an appt - the patient has a recording that says she is not accepting calls [facility] HospitalAahkhr50-33-3922 Miscellaneous Notes* Telephone Encounter - Ashley Haider MA - 07/13/2022 1:06 PM EST Attempted to call patient to help her schedule an appt - the patient has a recording that says she is not accepting calls * Telephone Encounter - Devendra Loera MD - 07/13/2022 11:10 AM EST Okay to reschedule * Telephone Encounter - Katie Bernardo - 07/07/2022 5:48 PM EST Name of Caller: Radha Contact Reason for Appointment: Pt states that she would like to r/s her 07/08 appt. Please advise. Office Name: [facility] Physician Orthopedics Medication Refills need, if any: N/A Medication Name: N/A documented in this [facility]01-25-2023 Telephone encounter Note* Telephone Encounter - Devendra Loera MD - 07/13/2022 11:10 AM EST [facility]: [phone]) 544-476301-23-2023 Telephone encounter Note* Telephone Encounter - ELSA Arriaza CNP - 07/11/2022 2:11 PM EST Reviewed chart. Refill appropriate. RX sent. [facility] Rheski36-09-6491 Miscellaneous Notes* Telephone Encounter - ELSA Arriaza CNP - 07/11/2022 2:11 PM EST Reviewed chart. Refill appropriate. RX sent. * Telephone Encounter - Mya Foster MA - 07/11/2022 2:02 PM EST Prescription Request: Last medication check: 08/05/21 Last physical exam: 04/26/22 Next scheduled appointment: 09/29/2022 Last date of refill on this medication 02/28/2022 documented in this [facility]01-23-2023 Telephone encounter Note* Telephone Encounter - Mya Foster MA - 07/11/2022 2:02 PM EST Prescription Request: Last medication check: 08/05/21 Last physical exam: 04/26/22 Next scheduled appointment: 09/29/2022 Last date of refill on this medication 02/28/2022 [facility] HospitalZaepmo59-80-2921 Telephone encounter Note* Telephone Encounter - Mya Fosetr MA - 07/11/2022 9:46 AM EST Notified. [facility] HospitalInbjhb46-64-9903 Miscellaneous Notes* Telephone Encounter - Mya Foster [...] to answer question Protocols used: Falls and Kjdfgat-ZAYMP-GR documented in this [facility]01-20-2023 Telephone encounter Note* Telephone Encounter - Shiv Lopez MD - 07/08/2022 12:30 PM EST Rx sent for tramadol, she can take this with Tylenol, this is a one-time prescription and cannot berefilled because we are not chronic pain management physicians. [facility] HospitalQhksxg39-54-7633 Miscellaneous Notes* Telephone Encounter - Shiv Lopez [...] to answer question Protocols used: Falls and Kwxeqdv-QSIPW-ZA documented in this [facility]01-20-2023 Telephone encounter Note* Telephone Encounter - Christine [...] to answer question Protocols used: Falls and Afhobeo-OJNVH-JF [facility]sjc49-91-7572 Telephone encounter Note* Telephone Encounter - Katie Bernardo - 07/07/2022 5:48 PM EST Name of Caller: Radha Contact Reason for Appointment: Pt states that she would like to r/s her 07/08 appt. Please advise. Office Name: [facility] Physician Orthopedics Medication Refills need, if any: N/A Medication Name: N/A [id number] Evaluation + Plan note* Assessment & Plan Note - Shiv Lopez MD - 06/30/2022 12:54 PM ESTAssociated Problem(s): Hyperlipidemia with target LDL less than 70 Controlled, continue rosuvastatin 10 mg daily [facility]twylj08-04-0599 Evaluation + Plan note* Assessment & Plan Note - Shiv Lopez MD - 06/30/2022 12:54 PM ESTAssociated Problem(s): Moderate episode of recurrent major depressive disorder (HCC) Stable, continue Paxil 20 mg daily [facility] HospitalDnbjlo12-12-5279 Evaluation + Plan note* Assessment & Plan Note - Shiv Lopez MD - 06/30/2022 12:54 PM ESTAssociated Problem(s): Chronic right-sided low back pain with right-sided sciatica Referral to orthopedic surgeon [facility] HospitalEtrbfd28-55-9794 Evaluation + Plan note* Assessment & Plan Note - Shiv Lopez MD - 06/30/2022 12:54 PM ESTAssociated Problem(s): Hypothyroidism Controlled, continue levothyroxine 150 mcg daily [facility] HospitalUuakae95-36-9485 Miscellaneous Notes* Assessment & Plan Note - [...] current dose of Ambien documented in this [facility]01-12-2023 Evaluation + Plan note* Assessment & Plan Note - Shiv Lopez MD - 06/30/2022 12:53 PM EST Associated Problem(s): Vitamin D deficiency Stable, continue vitamin D 50,000 units weekly [facility] HospitalChrlvc78-78-8301 Evaluation + Plan note* Assessment & Plan Note - Shiv Lopez MD - 06/30/2022 12:53 PM ESTAssociated Problem(s): Uncontrolled type 2 diabetes mellitus with hyperglycemia (HCC) Uncontrolled, continue NovoLog 14 units before each meal. 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 [facility] HospitalAqwhkh73-86-4634 Evaluation + Plan note* Assessment & Plan Note - Shiv Lopez MD - 06/30/2022 12:52 PM ESTAssociated Problem(s): DDD (degenerative disc disease), lumbar This is a chronic issue we will send her to spine surgery for further evaluation. [facility] HospitalBgljfe01-00-1726 Evaluation + Plan note* Assessment & Plan Note - Shiv Lopez MD - 06/30/2022 12:51 PM ESTAssociated Problem(s): Hypertension Blood pressure was initially elevated, recheck was normal, continue lisinopril 40 mg daily and amlodipine 10 mg daily [facility] HospitalRytzwp56-79-2996 Evaluation + Plan note* Assessment & Plan Note - Shiv Lopez MD - 06/30/2022 12:51 PM ESTAssociated Problem(s): Restless legs syndrome (RLS) Stable on current dose of Mirapex 2 mg nightly [facility] HospitalFuvxcy88-61-1237 Evaluation + Plan note* Assessment & Plan Note - Shiv Lopez MD - 06/30/2022 12:51 PM ESTAssociated Problem(s): Insomnia Stable on current dose of Ambien [facility] HospitalNcugin80-10-9943 History of Present illness Narrative* Syl Kumar MA - 06/30/2022 8:15 AM EST Patient verified by last name and date of . Patient wants a sales and marketing agent in the room during during the visit. no Wood Filler na * Shiv Lopez MD - [...] spine surgery for further evaluation. Orders: - [facility] Orthopedics Spine - Dank Rai/Colby 11. Chronic right-sided low back pain with right-sided sciatica Assessment & Plan: Referral to orthopedic surgeon Orders: - [facility] Orthopedics Spine - [place] Cecelia/Colby Follow up in about 3 months (around 09/28/2022). SUBJECTIVE/OBJECTIVE: LEONILA Johnson comes in today for 3-month follow-up on [...] Weight: 242 lb (110 kg) Height: 5' 5.25" (1.657 m) Physical Exam Vitals and nursing [...] MD 06/30/2022 12:55 PM documented in this encounterSProMedica Toledo HospitalEvaluation note* Diagnosis Localized edema Edema documented in this encounter [facility] Work Phone: Evaluation note* Diagnosis Dyspnea on exertion Other dyspnea and respiratory abnormality documented in this encounter [facility] Work Phone: Evaluation note* Diagnosis Acute lower GI bleeding- Primary Unspecified, hemorrhage of gastrointestinal tract Acute lower GI bleeding Unspecified, hemorrhage of gastrointestinal tract Rectal bleeding Hemorrhage of rectum and anus Gastrointestinal bleed Unspecified, hemorrhage of gastrointestinal tract documented in this encounter [facility] HealthEvaluation note* Diagnosis Hyperlipidemia with target LDL less than 70 Other and unspecified hyperlipidemia Acquired hypothyroidism Unspecified hypothyroidism Chronic left shoulder pain Pain in joint, shoulder region documented in this encounter [facility]Evaluation note* Diagnosis Vitamin D deficiency Acquired hypothyroidism Unspecified hypothyroidism Chronic left shoulder pain Pain in joint, shoulder region Restless legs syndrome (RLS) documented in this encounter [facility]Evaluation note* Diagnosis Wound of right buttock, subsequent encounter- Primary Chronic left shoulder pain Pain in joint, shoulder region documented in this encounter [facility] note* Diagnosis LING (acute kidney injury) ([facility]) ([facility])- Primary Pyelonephritis Unspecified pyelonephritis LING (acute kidney injury) ([facility]) ([facility]) Polypharmacy Issue of repeat prescriptions Insomnia, unspecified type Pressure ulcer of right buttock, stage 3 ([facility]) Declining functional status Weakness Other malaise and fatigue Insomnia Insomnia, unspecified Anxiety Anxiety state, unspecified Polypharmacy Issue of repeat prescriptions DNR (do not resuscitate) Other specified conditions influencing health status Complicated UTI (urinary tract infection) documented in this encounter [facility]Evaluation note* Diagnosis Onset Date Resolution Status Acquired lymphedema acute Debility acute Depression acute Diabetes mellitus acute Edema acute Hypothyroidism acute Insomnia acute Pain in left toe(s) acute Pain in right toe(s) acute Restless leg syndrome acute Rheumatoid arthritis acute Tinea unguium acute Type 2 diabetes mellitus with diabetic polyneuropathy acute Urinary tract infection acut e Hypertension chronic [facility] Work Phone: Evaluation note* Diagnosis Onset Date [...] reso lved [facility] Work Phone: Evaluation noteNo assessment information available [facility] Work Phone: Evaluation note* Diagnosis Uncontrolled type [...] with right-sided sciatica documented in this encounter [facility]* Diagnosis Trauma- Primary Injury, other and unspecified, unspecified site documented in this encounter [facility]* Diagnosis Trauma- Primary Injury, other and unspecified, unspecified site documented in this encounter [facility] note* Diagnosis Vitamin D deficiency [facility] Additional Instructions Discharge to [facility] 03/18/2023, intermediate, Part B therapies.[facility] Work Phone: Instructions* Attachments The following attachments cannot be sent through Care Everywhere. * Acute Cystitis Discharge Instructions (Italian) documented in [facility] for referral (narrative)* Consultation (Urgent) - Pending Review Specialty Diagnoses / Procedures Referred By Varun irizarry Referred To Contact Wound Care Diagnoses Wound of right buttock, subsequent encounter Procedures [place] OFFICE/OUTPATIENT NEW HIGH MDM 60-74 MINUTES Katia Granados, FRUIT SHIPPER - CHIEF INFORMATION SECURITY OFFICER [address] [place] [address] [place] [address] [facility] [address] [place] [address] Referral ID Status Reason Start Date Expiration Date Visits Requested Visits Authorized [id number] Pending Review Specialty Services Required 02/07/2023 02/07/2024 1 1 [facility] HealthReason for referral (narrative)* Consultation (Routine) - Pending Review Specialty Diagnoses / Procedures Referred By Varun t Referred To Contact Orthopedic Surgery: Spine Surgery / Orthopedic Surgery Diagnoses DDD (degenerative disc disease), lumbar Chronic right-sided low back pain with right-sided sciatica Procedures ND OFFICE/OUTPATIENT [facility] MDM 60-74 MINUTES Shiv Lopez MD [address] [place] [address] [facility] [address] [place] [facility] [address] [place] [address] Referral ID Status Reason Start Date Expiration Date Visits Requested Visits Authorized [id number] Pending Review Specialty Services Required 06/30/2022 12/27/2022 1 1 Rogelio Harmon for referral (narrative)No reason for referral information [facility]: Summary Purpose Family History No Family History Records Found Relationship Condition Age at Onset Recorded Date/T amelia Not Specified Cardiac disease Unknown Malignant neoplasm Unknown Advance Directives No Advanced Directives Records FoundDocuments on File Type Date Recorded 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 ACP-Advance Directive ACP-Power of Savings Teller Latest Code Status on File Code Status Date Activated Date Inactivated Comments Full Code 01/20/2019 3:56 AM 01/23/2019 7:06 PM Full Code 01/20/2019 3:56 AM 01/20/2019 3:56 AM Documents on File Type Date Recorded 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 * Lacerations: Stitches (Italian) * Head Injury: Closed: General Info (Italian) * Cervical Strain (Italian) documented in this encounter Assessments Diagnosis Injury of head, initial encounter- Primary Laceration of scalp, initial encounter Strain of neck muscle, initial encounter Reason for Referral Status Reason Specialty Diagnoses / Procedures Referre d By Contact Referred To Contact Closed Cardiology Diagnoses Localized edema Procedures ECHO Complete 2D W Doppler W Color Shiv Lopez MD [address] [facility] [place] [address] Specialty Diagnoses / Procedures Referred By Contac t Referred To Contact Gabrielle Finch MD [address] [place] [address] Referral ID Status Reason Start Date Expiration Date Visits Re quested Visits Authorized [id number] Closed 1 1 Referral ID Status Reason Start Date Expiration Date Visits Re quested Visits Authorized [id number] Closed 1 1 Referral ID Status Reason Start Date Expiration Date Visits Re quested Visits Authorized [id number] Closed 1 1 Specialty Diagnoses / Procedures Referred By Contac t Referred To Contact Wound Care Diagnoses Pressure ulcer of right buttock, stage 3 (HCC) Procedures ND OFFICE/OUTPATIENT NEW HIGH MDM 60-74 MINUTES Rosalinda Burrows, ELSA - CHIEF INFORMATION SECURITY OFFICER [address] [place] [address] Referral ID Status Reason Start Date Expiration Date Visits Requested Visits Authorized [id number] Pending Review Specialty Services Required 03/01/2023 02/29/2024 1 1 Specialty Diagnoses / Procedures Referred By Contac t Referred To Contact Geriatric Medicine Diagnoses Polypharmacy Insomnia, unspecified type Procedures ND OFFICE/OUTPATIENT NEW HIGH MDM 60-74 MINUTES Adam Holt MD [address] [address] [facility] [address] [facility] [address] [place] [address] Referral ID Status Reason Start Date Expiration Date Visits Requested Visits Authorized [id number] Pending Review Specialty Services Required 03/01/2023 02/29/2024 1 1 Chief Complaint and Reason for Visit Chief Complaint UTI/PRESSURE WOUND Reason for Visit Acquired lymphedema Debility Depression Diabetes mellitus Edema Hypothyroidism Insomnia Pain in left toe(s) Pain in right toe(s) Restless leg syndrome Rheumatoid arthritis Tinea unguium Type 2 diabetes mellitus with diabetic polyneuropathy Urinary tract infection Hypertension Chief Complaint UTI/PRESSURE WOUND JAIL LAB WORK JAIL LAB WORK Reason for Visit Acquired lymphedema Debility Depression Diabetes mellitus Edema Hypothyroidism Insomnia Restless leg syndrome Rheumatoid arthritis Type 2 diabetes mellitus with diabetic polyneuropathy Hypertension Pain in left toe(s) Pain in right toe(s) Tinea unguium Urinary tract infection Chief Complaint UTI/PRESSURE WOUND JAIL LAB WORK JAIL LAB WORK JAIL LABWORK Reason for Visit Acquired lymphedema Debility Depression Diabetes mellitus Edema Hypothyroidism Insomnia Restless leg syndrome Rheumatoid arthritis Type 2 diabetes mellitus with diabetic polyneuropathy Hypertension Pain in left toe(s) Pain in right toe(s) Tinea unguium Urinary tract infection Chief Complaint UTI/PRESSURE WOUND JAIL LAB WORK JAIL LAB WORK JAIL LABWORK JAIL LAB WORK Reason for Visit Acquired lymphedema Debility Depression Diabetes mellitus Edema Hypothyroidism Insomnia Restless leg syndrome Rheumatoid arthritis Type 2 diabetes mellitus with diabetic polyneuropathy Hypertension Pain in left toe(s) Pain in right toe(s) Tinea unguium Urinary tract infection Chief Complaint UTI/PRESSURE WOUND JAIL LAB WORK JAIL LAB WORK JAIL LABWORK JAIL LAB WORK LABWORK Reason for Visit Acquired lymphedema Debility Depression Diabetes mellitus Edema Hypothyroidism Insomnia Restless leg syndrome Rheumatoid arthritis Type 2 diabetes mellitus with diabetic polyneuropathy Hypertension Pain in left toe(s) Pain in right toe(s) Tinea unguium Urinary tract infection Chief Complaint UTI/PRESSURE WOUND JAIL LAB WORK JAIL LAB WORK JAIL LABWORK JAIL LAB WORK JAIL LAB WORK LABWORK Reason for Visit Acquired lymphedema Debility Depression Diabetes mellitus Edema Hypothyroidism Insomnia Restless leg syndrome Rheumatoid arthritis Type 2 diabetes mellitus with diabetic polyneuropathy Hypertension Pain in left toe(s) Pain in right toe(s) Tinea unguium Urinary tract infection Chief Complaint JAIL LABWORK JAIL LAB WORK JAIL LAB WORK LABWORK JAIL LAB WORK JAIL LAB WORK LABWORK JAIL LAB WORK LABWORK Chief Complaint JAIL LAB WOR K JAIL LAB WORK LABWORK JAIL LAB WORK JAIL LAB WORK LABWORK JAIL LAB WORK LABWORK LABWORK Chief Complaint JAIL LAB WOR K LABWORK JAIL LAB WORK JAIL LAB WORK LABWORK JAIL LAB WORK LABWORK LABWORK LABWORK Chief Complaint JAIL LAB WOR K LABWORK JAIL LAB WORK JAIL LAB WORK LABWORK JAIL LAB WORK LABWORK LABWORK LABWORK LABWORK Chief Complaint Admit Date JAIL LAB WORK May 29 5:00am JAIL LAB WORK June 13 6:35am JAIL LAB WORK June 27, 2024 5:00am JAIL LAB WORK July 11, 2024 5:00am LABWORK July 25, 2024 5 :00am B/L SHOULDER PAIN/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 o July 31, 2024 4:58pm LABWORK August 06, 2024 4:00pm LABWORK August 08, 2024 8:05am JAIL LAB WORK August 22, 2024 7: 10am Chief Complaint Admit Date JAIL LAB WORK May 29 5:00am JAIL LAB WORK June 13 6:35am JAIL LAB WORK June 27, 2024 5:00am JAIL LAB WORK July 11, 2024 5:00am LABWORK July 25, 2024 5 :00am B/L SHOULDER PAIN/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 o July 31, 2024 4:58pm LABWORK August 06, 2024 4:00pm LABWORK August 08, 2024 8:05am JAIL LAB WORK August 22, 2024 7: 10am JAIL LAB WORK September 05, 2024 8 :00am Chief Complaint Admit Date JAIL LAB WORK June 13 6:35am JAIL LAB WORK June 27, 2024 5:00am JAIL LAB WORK July 11, 2024 5:00am LABWORK July 25, 2024 5 :00am B/L SHOULDER PAIN/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 o July 31, 2024 4:58pm LABWORK August 06, 2024 4:00pm LABWORK August 08, 2024 8:05am JAIL LAB WORK August 22, 2024 7: 10am JAIL LAB WORK September 05, 2024 8 :00am JAIL LAB WORK October 03, 2024 4 :00am Chief Complaint Admit Date JAIL LAB WORK June 27, 2024 5:00am JAIL LAB WORK July 11, 2024 5:00am LABWORK July 25, 2024 5 :00am B/L SHOULDER PAIN/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 o July 31, 2024 4:58pm LABWORK August 06, 2024 4:00pm LABWORK August 08, 2024 8:05am JAIL LAB WORK August 22, 2024 7: 10am JAIL LAB WORK September 05, 2024 8 :00am LABWORK September 19, 2024 5:00 am JAIL LAB WORK September 23, 2024 8: 20am JAIL LAB WORK October 03, 2024 4 :00am Chief Complaint Admit Date LABWORK August 06, 2024 4:00pm LABWORK August 08, 2024 8:05am JAIL LAB WORK August 22, 2024 7: 10am JAIL LAB WORK September 05, 2024 8 :00am LABWORK September 19, 2024 5:00 am JAIL LAB WORK September 23, 2024 8: 20am JAIL LAB WORK October 03, 2024 4 :00am LABWORK October 17, 2024 5:00am LABOWRK November 08, 2024 5:00a m Chief Complaint Admit Date LABWORK August 06, 2024 4:00pm LABWORK August 08, 2024 8:05am JAIL LAB WORK August 22, 2024 7: 10am JAIL LAB WORK September 05, 2024 8 :00am LABWORK September 19, 2024 5:00 am JAIL LAB WORK September 23, 2024 8: 20am JAIL LAB WORK October 03, 2024 4 :00am LABWORK October 17, 2024 5:00am LABOWRK November 08, 2024 5:00a m JAIL LAB WORK November 14, 2024 6:5 0am LABOWRK November 28, 2024 5:00 am Additional Source Comments INFORMATION SOURCE (unrecogn ized section and content) DATE CREATED AUTHOR 12/13/2017 [facility] DATE CREATED AUTHOR AUTHOR'S ORGANIZ ATION 10/08/2020 [facility] DATE CREATED AUTHOR AUTHOR'S ORGANIZ ATION 08/26/2021 [facility] DATE CREATED AUTHOR AUTHOR'S ORGANIZ ATION 02/05/2024 [facility] DATE CREATED AUTHOR AUTHOR'S ORGANIZ ATION 01/15/2025 [facility] Reason for Visit (unrecogniz ed section and content) Reason Comments Fall Surgical team Reason Onset Date Comments Results 10/05/2022 Reason Comments Black or Bloody Stool Specialty Diagnoses / Procedures Referred By Contdeuce t Referred To Contact Diagnoses Acute lower GI bleeding Procedures K92.2 Bertram Durbin MD [address] [place] [address] [facility] 1e Med Surg [address] [place] [address] Referral ID Status Reason Start Date Expiration Date Visits Re quested Visits Authorized [id number] 1 1 Reason Onset Date Comments Med [...] Pain Specialty Diagnoses / Procedures Referred By Contdeuce t Referred To Contact Diagnoses LING (acute kidney injury) ([facility]/HCC) ([facility]) Procedures .. Gabrielle Finch MD [address] [place] [address] [facility] Emergency Dept [address] [place] [address] Referral ID Status Reason Start Date Expiration Date Visits Re quested Visits Authorized [id number] 1 1 Reason Onset Date Comments ER [...] MD Primary Care Provider Active Team Status: Active Member Role [...] 2024 End: October 03, 2024 Team Status: Inactive Member Role Status Dates Dr. Melissa Reed MD Primary Care Provider Active Start: October 17, 2024 End: October 17, 2024 Dr. Melissa THOMPSON MD Attending Provider Active Start: October 17, 2024 End: October 17, 2024 Team Status: Inactive Member Role Status Dates Dr. Melissa Reed MD Primary Care Provider Active Start: November 08, 2024 End: November 08, 2024 Dr. Melissa THOMPSON MD Attending Provider Active Start: November 08, 2024 End: November 08, 2024 Team Status: Active Member Role Status Dates Dr. Melissa Reed MD Primary Care Provider Active Start: November 14, 2024 Dr. Melissa THOMPSON MD Attending Provider Active Start: November 14, 2024 Team Status: Active Member Role Status Dates Dr. Melissa Reed MD Primary Care Provider Active Start: November 28, 2024 Dr. Melissa THOMPSON MD Attending Provider Active Start: November 28, 2024 Team Status: Inactive Member Role Status [...] Attending Provider Active Start: September 19, 2024 Chemist Enzymes Relationship Specialty Start Date End Date Shiv Lopez MD [address] [place] [address] PCP - General 02/01/19 Chemist Enzymes Relationship Specialty Start Date End Date Shiv Lopez MD [facility] [place] [address] PCP - General 02/01/19 Chemist Enzymes Relationship Specialty Start Date End Date Shiv Lopez MD [facility] [place] [place] [address] PCP - General 02/01/19 Chemist Enzymes Relationship Specialty Start Date End Date Shiv [facility] [place] [address] PCP - General 02/01/19 Chemist Enzymes Relationship Specialty Start Date End Date [place]iv [place] [address] PCP - General 02/01/19 Chemist Enzymes Relationship Specialty Start Date End Date Shiv Lopez MD [facility] [place] [address] PCP - General 02/01/19 Chemist Enzymes Relationship Specialty Start Date End Date Shiv Lopez MD [address] [facility] [place] [address] PCP - General 02/01/19 Chemist Enzymes Relationship Specialty Start Date End Date Shiv Lopez MD [address] [facility] [place] [address] PCP - General 02/01/19 Chemist Enzymes Relationship Specialty Start Date End Date Shiv Lopez MD [address] [place] [address] PCP - General 02/01/19 Chemist Enzymes Relationship Specialty Start Date End Date Shiv Lopez MD [address] [place] [address] PCP - General 02/01/19 Chemist Enzymes Relationship Specialty Start Date [place] [address] PCP - General 02/01/19 Chemist Enzymes Relationship Specialty Start Date End Date Shiv Lopez MD [address] [place] [address] PCP - General 02/01/19 Chemist Enzymes Relationship Specialty Start Date [place] [address] PCP - General 02/01/19 Chemist Enzymes Relationship Specialty Start Date [place] [address] PCP - General 02/01/19 Team Status: Active [...] Status: Active Member Role Status Dates Dr. hSiv Lopez MD Primary Care Provider Active Dr. Melissa THOMPSON MD Attending Provider Active Team Status: Inactive Member Role Status Dates Dr. Shiv Lopez MD Primary Care Provider Active Dr. Melissa THOMPSON MD Attending Provider Active Team Status: Inactive Member Role Status Dates Dr. Shiv Lopez MD Primary Care Provider Active Dr. Melissa THOMPSON MD Attending Provider, Referring Provider Active Chemist Enzymes Relationship Specialty Start Date [place] [address] PCP - General 02/01/19 Chemist Enzymes Relationship Specialty Start Date End Date Shiv Lopez MD [address] [place], [place] [id number] PCP - General 02/01/19 Chemist Enzymes Relationship Specialty Start Date End Date Shiv Lopez MD [address] [facility] [place] [address] PCP - General 02/01/19 Chemist Enzymes Relationship Specialty Start Date End Date Shiv Lopez [facility] [place] [id number] PCP - General 02/01/19 Team Status: Inactive [...] Attending Provider Active Start: September 05, 2024 Team Status: Inactive Member Role Status Dates Dr. Melissa Reed MD Primary Care Provider Active Start: November 28, 2024 End: November 28, 2024 Dr. Melissa THOMPSON MD Attending Provider Active Start: November 28, 2024 End: November 28, 2024 Scheduled Active and Recently Administ ered [...] parameters not met - Comment: Held per [facility]) 0859 (Given - Provider: Oneyda Young, TONI) 0900 (Not Given - Provider: Lambert Kaur RN - Reason: NPO) baclofen (Lioresal) tablet 10 mg 10 mg, Oral, Daily, First dose on Mon12/05/22 at 1954 2050 (Given - Provider: Abby Kahn RN) 0859 (Given - Provider: Oneyda Young RN) 09 (Not Given - Provider: Lambert Kaur RN - Reason: NPO) Insulin Lispro (Humalog) injection 0-12 Units(Linked Group 1) 0-12 Units, SubCUTAneous, 3 times daily with meals, First dose on Mon12/05/22 at 195, Medium Dose Correction Algorithm Glucose: Dose: LESS [...] Abby Kahn RN - Reason: Patient/family refused) 0900 (Given - Provider: Oneyda Young RN) 0900 (Not Given - Provider: Lambert Vincent, RN - Reason: NPO) lisinopril tablet 40 mg 40 mg, Oral, Daily, First dose on Mon12/05/22 at 1955 1954 (Not Given - Provider: Abby Kahn RN - Reason: Order parameters not met - Comment: Held per IMS) 0859 (Given - Provider: Oneyda Young RN) [...] at 1954 2050 (Given - Provider: Abby Kahn RN) 0901 [...] ELSA Rasmussen CRNA)0911 (Rate/Dose Change - Provider: ESLA Rasmussen CRNA)0951 (Stopped - Provider: ELSA Rasmussen CRNA) PRN Medication Order 12/05/2022 12/06/2022 12/07/2022 acetaminophen (Tylenol) suppository 650 mg(Linked Group 2) 650 mg, Rectal, Every 6 hours PRN, mild pain (1-3), fever, For temp greater than 100.4 F (38 C), Starting on Mon12/05/22 at 195, Administer if oral route cannot be used. [...] Juan Nguyen RN)0859 (Given - Provider: Oneyda Young RN) dextrose 5 % infusion 100 mL/hr, IntraVENous, [...] F (38 C), Starting on Mon12/05/22 at 1953
Maximum dose of acetaminophen is 4000 mg from all sources in 24 hours.
Or acetaminophen (Tylenol) suppository 650 mgJump to med 650 mg, Rectal, Every 6 hours PRN, mild pain (1-3), fever, For temp greater than 100.4 F (38 C), Starting on Mon12/05/22 at 195
Administer if oral route cannot be used. [...] RN)2109 (Given - Provider: Lizeth Shelby RN) 09 (Given - Provider: Tristan Champion LPN)2058 (Given - Provider: Lizeth Shelby RN) 08 (Given - Provider: Tristan Champion LPN) baclofen (Lioresal) tablet 10 mg 10 mg, Oral, Daily, First dose on Mon02/28/23 at 1815 2111 (Given - Provider: Lizeth Shelby RN) 2058 [...] 0938 (Given - Provider: Alma Turner RN) 0909 (Given - Provider: Tristan Champion LPN) 0808 [...] Tristan Champion LPN)1045 (Given - Provider: Randi Marquez RN) Insulin Lispro (Humalog) injection 10 Units 10 Units, SubCUTAneous, 3 times daily with meals, First dose (after last modification) on Mon03/02/23 at 1700 1832 (Given - Provider: Tristan Champion LPN) 0809 (Given - Provider: Tristan Champion LPN)1046 (Given - Provider: Randi Marquez RN) Insulin Lispro (Humalog) injection 16 Units (CANCELED) 16 Units, SubCUTAneous, 4 times daily before meals & nightly, First dose on Mon02/28/23 at 2100 0757 (Given - Provider: Alma Turner RN)1324 (Given - Provider: lAma Turner RN) Insulin Lispro (Humalog) injection 6 Units (CANCELED) 6 Units, SubCUTAneous, 4 times daily before meals & nightly, First dose (after last modification) on Mon03/01/23 at 1700 1848 (Given - Provider: Alma Turner RN)2111 (Given - Provider: Lizeth Shelby RN) 0605 (Given - Provider: Lizeth Shelby RN)1100 (Canceled [...] 2110 (Given - Provider: Lizeth Shelby RN) 220 (Given - Provider: Lizeth Shelby RN) PARoxetine (Paxil) tablet 20 mg 20 mg, Oral, Nightly, First dose (after last modification) on Mon03/02/23 at 2100 205 (Given - Provider: Lizeth Shelby RN) pramipexole (Mirapex) tablet 0.25 mg 0.25 mg, Oral, Nightly, First dose on Mon02/28/23 at 2100 211 (Given - Provider: Lizeth Shelby RN) 2099 (Given - Provider: Lizeth Shelby, RN) rosuvastatin (Crestor) tablet 10 mg 10 mg, Oral, Daily, First dose on Mon02/28/23 at 1815 2110 (Given - Provider: Lizeth Shelby RN) 2099 (Given - Provider: Lizeth Shelby RN) Continuous Medication Order 03/01/2023 03/02/2023 03/03/2023 sodium chloride 0.9 % infusion (CANCELED) 75 mL/hr, IntraVENous, Continuous, Starting on Mon02/28/23 at 1815 1327 (New Bag - Provider: Alma Turner, RN)1707 (Stopped - Provider: Alma Turner RN) [...] BE BASED ON THE PRIMARY CLINICAL RECORDS. [employer] provides no warranty or guarantee of the accuracy or completeness of information in this document.
[2025-01-23 09:38] LABS: Magnesium 2.2 mg/dL (1.5-2.2)
[2025-01-23 09:42] LABS: Anion Gap 10 (5-15); BUN 27 mg/dL (4-19); BUN/Creat Ratio 25.3 RATIO (10-20); Calcium,Total 8.8 mg/dL (7.6-11.0); Carbon Dioxide 26.3 mmol/L (21.0-32.0); Chloride 102 mmol/L (98-108); Glucose 139 mg/dL (70-99); Potassium 4.3 mmol/L (3.3-5.1)
== END ==
LOC: OLS.SWAL 05:00
PROVIDERS: PCP Internal Medicine; Visit Provider Internal Medicine
DX: I89.0 Lymphedema, not elsewhere classified (principal); R60.9 Edema, unspecified
CPT/HCPCS: 36415; 80048; 83735

== ENCOUNTER → 2025-02-06 05:00 | Outpatient (REF) | payer MEDICARE, MEDICAID, SELFPAY ==
--- OUTSIDE RECORDS SUMMARY | 2025-02-06 04:36 | XMS RPT_ITS | CCD ---
Author Organization [facility] Care Team Providers Care Tool Marker Name Role Phone Shiv Lopez Unavailable Unavailable PROVIDER, UNKNOWN Unavailable Unavailable Shiv Lopez Unavailable Unavailable Shiv Lopez Primary Care Provider Shiv Lopez Primary Care Provider [phone] Shiv Lopez Primary Care Provider [phone] Shiv Lopez MD Primary Care Provider Shiv [...] Doris Argueta MD, Dr. Betancur Attending Provider [phone] Dr. Gypsy Argueta MD Referring Provider Dr. Melissa Reed MD Referring Provider Unavaildiony Lopez MD, Dr. Chaney Primary Care Provider Brianna TOWNSEND, Dr. Torres Attending Provider Unavaildiony Lopez MD, Dr. Chaney Primary Care Provider [phone] Brianna TOWNSEND, Dr. Torres Attending Provider Unavaildiony Reed MD, Dr. Torres Primary Care Provider Unava renetta Reed MD, Dr. Torres Attending Provider UnavailShiv Curran Primary Care Unavailable Gudla OLS, Melissa Attending Unavailable Gudla OLS, Melissa Attending Unavailable Gudla, Melissa Primary Care Unavailable John, Shiv Primary Care Unavailable Gudla OLS, Melissa Attending Unavailable John, Shiv Primary Care Unavailable Gudla JAY, Melissa Attending Unavailable Gudla OLS, Melissa Referring Unavailable Gudla Ryley THOMPSONyothi Attending Unavailable Gudla, Melissa Primary Care Unavailable Gudla Ryley THOMPSONyothi Attending Unavailable Gudla, Melissa Primary Care Unavailable Gudla Ryley THOMPSONyothi Attending Unavailable Gudla, Melissa Primary Care Unavailable John, Shiv Primary Care Unavailable Gudla Ryley THOMPSONyothi Attending Unavailable Gudla Ryley THOMPSONyothi Attending Unavailable Gudla, Melissa Primary Care Unavailable Gudla, Melissa Primary Care Unavailable Gudla Ryley THOMPSONyothi Attending Unavailable Basali, Ayman Referring Unavailable Basali Ayman Attending Unavailable Gudla, Melissa Primary Care Unavailable Gudla Ryley THOMPSONyothi Attending Unavailable Gudla, Melissa Primary Care Unavailable Gudla, Melissa Primary Care Unavailable Gudla Ryley THOMPSONyothi Attending Unavailable Gudla, Melissa Primary Care Unavailable Gudla OLS Melissa Attending Unavailable Gudla, Melissa Primary Care Unavailable Gudla Ryley THOMPSONyothi Attending Unavailable Gudla, Melissa Primary Care Unavailable Gudla JAY Melissa Attending Unavailable Gudla, Melissa Primary Care Unavailable Gudla OLS, Melissa Attending Unavailable Gudla OLS, Melissa Attending Unavailable Gudla, Melissa Primary Care Unavailable John, Shiv Primary Care Unavailable Gudla JAY, Melissa Attending Unavailable Gudla OLS, Melissa Referring Unavailable Gudla JAY, Melissa Attending Unavailable Gudla, [...] Attending Unavailable Gudla OLS, Melissa Attending Unavailable Gudla, [...] (2 sources) Codeine Drug Allergy 5 Itching [facility] (20 sources) Codeine Drug Allergy 5 Itching [place], [place] (20 sources) Oxycodone-Aspiri n Propensity to adverse reactions to drug 5 [place] (20 sources) oxyCODONE Drug Allergy 1 Hives [facility] (20 sources) Vancomycin Drug Allergy 1 Rash [facility] (20 sources) Other Allergy to substance 3 [facility] (16 sources) Aspirin Drug Allergy 1 Other [facility] (2 sources) Aluminum aspirin Drug Allergy 1 [facility] (1 source) Aspirin Drug Allergy 1 [facility] (1 source) oxyCODONE Drug Allergy 1 [facility] (1 source) Vancomycin Drug Allergy 1 [facility] Medications Current Medications Medication Drug Class(es) [...] oral solution (1 source) alpha-Adrenergic Agonist, Uncompetitive V-xkfkps-D-aspartat e Receptor Antagonist, Sigma-1 Agonist Start: 09-10-2018 [...] Active docusate sodium 50 mg / sennosides, intermediate 8.6 mg oral tablet (20 sources) Start: [...] every week ergocalciferol (Vitamin D-2) 1.25 MG (11379 UT) capsule Indications: Vitamin D deficiency Take 1 capsule (1.25 mg) by mouth 1 (one) time per week. 90 capsule 1 07/18/2022 Active Start: 06-10-2021 take 1 capsule by mo ut every week vitamin D (ERGOCALCIFEROL) 1.25 MG (89776 UT) CAPS capsule Take 1 capsule by mouth once a week 12 capsule 1 06/10/2021 Active Start: 12-23-2020 Ergocalciferol (Vitamin D2) (Vitamin D2) 1,250 mcg (50,000 unit) capsule Active 1250 ug PO EVERY WEEK December 23, 2020 12:00am Start: 01-16-2020 take 1 capsule by mo uth every week vitamin D (ERGOCALCIFEROL) 1.25 MG (15485 UT) CAPS capsule Take 1 capsule by mouth once a week 12 capsule 1 01/16/2020 Active Start: 10-01-2018 ergocalciferol (DRISDOL) 43067 units capsule 1 capsule every week 8 [...] Drug Class(es) Dates Sig (Normalized) Sig (Original) [id number] 200 actuat albuterol 0.09 mg/actuat metered dose [...] CLEANUP) Start: 06-04-2019 Continuous Blo od Gluc Manager Relationship (FREESTYLE EVIN 14 DAY READER) JO LENGTH [...] 08/05/2021 Discontinued (LIST CLEANUP) polyethylene glycol 3350 10347 mg powder for oral solution (3 sources) [...] in past 24 hours. polyethylene glycol 3350 294795 mg / potassium chloride 2970 mg / sodium bicarbonate 6740 mg / sodium chloride 5860 mg / sodium sulfate 00341 mg powder for oral solution (2 sources) [...] aftercare (5 sources) Polypharmacy ; Translations: [Other snf (current) drug therapy] Onset: 3 03-01-2023 Episodic Other aftercare (2 sources) Other snf (current) drug therapy; Translations: [Other snf (current) drug therapy] Onset: 3 Episodic Other aftercare (2 sources) alf (current) use of insulin; Translations: [superintendent terminal (current) use of insulin (HCC)] Onset: 3 [...] Range Facility Basic Metabolic Profile (BMP )on 01-23-2025 BUN/CRE 25.3 RATIO High 10-20 [facility] Comment on above: Order Comment: 157 Performed By: #### L 501.5200, L500.2500 #### [facility] [address] [place], [address] Calcium [Mass/Vol] 8.8 mg/dL Normal 7.6-11.0 [facility] Comment on above: Order Comment: 157 Performed By: #### L 501.5200, L500.2500 #### [facility] [address] [place], [address] Chloride [Moles/Vol] 102 mmol/L Normal 98-108 [facility] Comment on above: Order Comment: 157 Performed By: #### L 501.5200, L500.2500 #### [facility] [address] [place], [address] CO2 [Moles/Vol] 26.3 mmol/L Normal 21.0-32.0 [facility] Comment on above: Order Comment: 157 Performed By: #### L 501.5200, L500.2500 #### [facility] [address] [place], [address] Creatinine [Mass/Vol] 1.06 mg/dL Normal 0.70-1.20 [facility] Comment on above: Order Comment: 157 Performed By: #### L 501.5200, L500.2500 #### [facility] [address] [place], [address] GAP 10 Normal 5-15 [facility] Comment on above: Order Comment: 157 Performed By: #### L 501.5200, L500.2500 #### [facility] [address] [place], [address] GFR/1.73 sq M.predicted among non-blacks MDRD (S/P/Bld) [Vol rate/Area] 53 mL/min/{1.73_m2} Low >60 [facility] Comment on above: Order Comment: 157 Result Comment: mL/m in/1.73m2 CKD-EPI Creatinine Equation (2020) Performed By: #### L 501.5200, L500.2500 #### [facility] [address] [place], [address] Glucose [Mass/Vol] 139 mg/dL High 70-99 [facility] Comment on above: Order Comment: 157 Performed By: #### L 501.5200, L500.2500 #### [facility] [address] [place], [address] Potassium [Moles/Vol] 4.3 mmol/L Normal 3.3-5.1 [facility] Comment on above: Order Comment: 157 Result Comment: Hemo lysis present, Results??could be affected. ?? Performed By: #### L 501.5200, L500.2500 #### [facility] [address] [place], [address] Sodium [Moles/Vol] 138 mmol/L Normal 133-145 [facility] Comment on above: Order Comment: 157 Performed By: #### L 501.5200, L500.2500 #### [facility] [address] [place], [address] Urea nitrogen [Mass/Vol] 27 mg/dL High 4-19 [facility] Comment on above: Order Comment: 157 Performed By: #### L 501.5200, L500.2500 #### [facility] [address] [place], [address] Magnesiumon 01-23-2025 Magnesium [Mass/Vol] 2.2 mg/dL Normal 1.5-2.2 [facility] Comment on above: Order Comment: 157 Performed By: #### L 501.5200, L500.2500 #### [facility] [address] [place], [address] Basic Metabolic Profile (BMP )on 01-09-2025 BUN/CRE 22.0 RATIO High 10-20 [facility] Comment on above: Performed By: #### L 501.5200, L500.2500 #### [facility] [address] [place], [address] Calcium [Mass/Vol] 9.0 mg/dL Normal 7.6-11.0 [facility] Comment on above: Performed By: #### L 501.5200, L500.2500 #### [facility] [address] [place], [address] Chloride [Moles/Vol] 103 mmol/L Normal 98-108 [facility] Comment on above: Performed By: #### L 501.5200, L500.2500 #### [facility] [address] [place], [address] CO2 [Moles/Vol] 29.7 mmol/L Normal 21.0-32.0 [facility] Comment on above: Performed By: #### L 501.5200, L500.2500 #### [facility] [address] [place], [address] Creatinine [Mass/Vol] 1.08 mg/dL Normal 0.70-1.20 [facility] Comment on above: Performed By: #### L 501.5200, L500.2500 #### [facility] [address] [place], [address] GAP 8 Normal 5-15 [facility] Comment on above: Performed By: #### L 501.5200, L500.2500 #### [facility] [address] [place], [address] GFR/1.73 sq M.predicted among non-blacks MDRD (S/P/Bld) [Vol rate/Area] 52 mL/min/{1.73_m2} Low >60 [facility] Comment on above: Result Comment: mL/m in/1.73m2 CKD-EPI Creatinine Equation (2020) Performed By: #### L 501.5200, L500.2500 #### [facility] [address] [place], [address] Glucose [Mass/Vol] 78 mg/dL Normal 70-99 [facility] Comment on above: Performed By: #### L 501.5200, L500.2500 #### [facility] [address] [place], [address] Potassium [Moles/Vol] 4.5 mmol/L Normal 3.3-5.1 [facility] Comment on above: Result Comment: Hemo lysis present, Results??could be affected. ?? Performed By: #### L 501.5200, L500.2500 #### [facility] [address] [place], [address] Sodium [Moles/Vol] 141 mmol/L Normal 133-145 [facility] Comment on above: Performed By: #### L 501.5200, L500.2500 #### [facility] [address] [place], [address] Urea nitrogen [Mass/Vol] 24 mg/dL High 4-19 [facility] Comment on above: Performed By: #### L 501.5200, L500.2500 #### [facility] [address] [place], [address] Magnesiumon 01-09-2025 Magnesium [Mass/Vol] 2.1 mg/dL Normal 1.5-2.2 [facility] Comment on above: Performed By: #### L 501.5200, L500.2500 #### [facility] [address] [place], [place], [address] Urine Cultureon 12-27-2024 [facility] Copy of report sent to Infection Control Printer MS#[id number] 12/26/24 0739 FELICITAS. Urine Culture CALLED X2, RESULTS CALLED TO DIVYA AND LEFT VOICEMAIL MESSAGE WITH SCOTTY MUÑOZ 12/26/24 6509 Dora Platt. Escherichia coli Troutman Count 50,000-80,000 MARKER ESBL producing OrganismA MARKER [...] S Tobramycin Islt LAVINIA <=1 S Normal [facility] Comment on above: Performed By: #### L 501.5200, L500.2500 #### [facility] [address] [place], [place], [address] Basic Metabolic Profile (BMP )on 12-26-2024 BUN/CRE 24.9 RATIO High 10- [facility] Comment on above: Order Comment: CLEAN CATCH Performed By: #### M 100.2200, L400.0001 #### [facility] [address] [place], [address] Calcium [Mass/Vol] 8.7 mg/dL Normal 7.6-11.0 [facility] Comment on above: Order Comment: CLEAN CATCH Performed By: #### M 100.2200, L400.0001 #### [facility] [address] [place], [address] Chloride [Moles/Vol] 103 mmol/L Normal 98-108 [facility] Comment on above: Order Comment: CLEAN CATCH Performed By: #### M 100.2200, L400.0001 #### [facility] [address] [place], [address] CO2 [Moles/Vol] 28.5 mmol/L Normal 21.0-32.0 [facility] Comment on above: Order Comment: CLEAN CATCH Performed By: #### M 100.2200, L400.0001 #### [facility] [address] [place], [address] Creatinine [Mass/Vol] 1.19 mg/dL Normal 0.70-1.20 [facility] Comment on above: Order Comment: CLEAN CATCH Performed By: #### M 100.2200, L400.0001 #### [facility] [address] [place], [address] GAP 9 Normal 5-15 [facility] Comment on above: Order Comment: CLEAN CATCH Performed By: #### M 100.2200, L400.0001 #### [facility] [address] [place], [address] GFR/1.73 sq M.predicted among non-blacks MDRD (S/P/Bld) [Vol rate/Area] 46 mL/min/{1.73_m2} Low >60 [facility] Comment on above: Order Comment: CLEAN CATCH Result Comment: mL/m in/1.73m2 CKD-EPI Creatinine Equation (2020) Performed By: #### M 100.2200, L400.0001 #### [facility] [address] [place], [address] Glucose [Mass/Vol] 162 mg/dL High 70-99 [facility] Comment on above: Order Comment: CLEAN CATCH Performed By: #### M 100.2200, L400.0001 #### [facility] [address] [place], [address] Potassium [Moles/Vol] 4.5 mmol/L Normal 3.3-5.1 [facility] Comment on above: Order Comment: CLEAN CATCH Performed By: #### M 100.2200, L400.0001 #### [facility] [address] [place], [address] Sodium [Moles/Vol] 141 mmol/L Normal 133-145 [facility] Comment on above: Order Comment: CLEAN CATCH Performed By: #### M 100.2200, L400.0001 #### [facility] [address] [place], [address] Urea nitrogen [Mass/Vol] 30 mg/dL High 4-19 [facility] Comment on above: Order Comment: CLEAN CATCH Performed By: #### M 100.2200, L400.0001 #### [facility] [address] [place], [address] Magnesiumon 12-26-2024 Magnesium [Mass/Vol] 2.2 mg/dL Normal 1.5-2.2 [facility] Comment on above: Order Comment: CLEAN CATCH Performed By: #### M 100.2200, L400.0001 #### [facility] [address] [place], [address] Urinalysis, Completeon 12-24 BACTERIA RARE Normal None Seen [facility] Comment on above: Order Comment: CLEAN CATCH Performed By: #### M 100.2200, L400.0001 #### [facility] [address] [place], [address] EPI,SQUAMOUS 0-5 SEEN Normal 5-10 [facility] Comment on above: Order Comment: CLEAN CATCH Performed By: #### M 100.2200, L400.0001 #### [facility] [address] [place], [address] Mucus Ql (Urine sed) 0 SEEN Normal [facility] Comment on above: Order Comment: CLEAN CATCH Performed By: #### M 100.2200, L400.0001 #### [facility] [address] [place], [address] RBC 0 SEEN Normal 0-5 [facility] Comment on above: Order Comment: CLEAN CATCH Performed By: #### M 100.2200, L400.0001 #### [facility] [address] [place], [address] WBC 0 SEEN Normal 0-5 [facility] Comment on above: Order Comment: CLEAN CATCH Performed By: #### M 100.2200, L400.0001 #### [facility] [address] [place], [address] Basic Metabolic Profile (BMP )on 12-12-2024 BUN/CRE 28.8 RATIO High 10-20 [facility] Comment on above: Performed By: #### M 100.2200, L400.0001 #### [facility] [address] [place], [address] Calcium [Mass/Vol] 8.7 mg/dL Normal 7.6-11.0 [facility] Comment on above: Performed By: #### M 100.2200, L400.0001 #### [facility] [address] [place], [address] Chloride [Moles/Vol] 101 mmol/L Normal 98-108 [facility] Comment on above: Performed By: #### M 100.2200, L400.0001 #### [facility] [address] [place], [address] CO2 [Moles/Vol] 27.9 mmol/L Normal 21.0-32.0 [facility] Comment on above: Performed By: #### M 100.2200, L400.0001 #### [facility] [address] [place], [address] Creatinine [Mass/Vol] 0.98 mg/dL Normal 0.70-1.20 [facility] Comment on above: Performed By: #### M 100.2200, L400.0001 #### [facility] [address] [place], [address] GAP 9 Normal 5-15 [facility] Comment on above: Performed By: #### M 100.0, L400.0001 #### [facility] [address] [place], [address] GFR/1.73 sq M.predicted among non-blacks MDRD (S/P/Bld) [Vol rate/Area] 58 mL/min/{1.73_m2} Low >60 [facility] Comment on above: Result Comment: mL/m in/1.73m2 CKD-EPI Creatinine Equation (2020) Performed By: #### M 100.2200, L400.0001 #### [facility] [address] [place], [address] Glucose [Mass/Vol] 148 mg/dL High 70-99 [facility] Comment on above: Performed By: #### M 100.2200, L400.0001 #### [facility] [address] [place], [address] Potassium [Moles/Vol] 4.0 mmol/L Normal 3.3-5.1 [facility] Comment on above: Performed By: #### M 100.2200, L400.0001 #### [facility] [address] [place], [address] Sodium [Moles/Vol] 139 mmol/L Normal 133-145 [facility] Comment on above: Performed By: #### M 100.2200, L400.0001 #### [facility] [address] [place], [address] Urea nitrogen [Mass/Vol] 28 mg/dL High -19 [facility] Comment on above: Performed By: #### M 100.2200, L400.0001 #### [facility] [address] [place], [address] Magnesiumon 12-12-2024 Magnesium [Mass/Vol] 2.2 mg/dL Normal 1.5-2.2 [facility] Comment on above: Performed By: #### M 100.2200, L400.0001 #### [facility] [address] [place], [address] Anion gap in Serum or Plasma Ordered By: Melissa Reed on 11-28-2024 Anion gap [Moles/Vol] 11 mmol/L -15 [facility] BUN/creatinine ratioOrdered By: Melissa Reed on 11-28-2024 Urea nitrogen/Creatinine [Mass ratio] 28.8 mg/mg High - [facility] Basic Metabolic Profile (BMP )on 11-28-2024 BUN/CRE 28.8 RATIO [facility] Comment on above: Order Comment: 157 Performed By: #### M 100.2200, L400.0001 #### [facility] [address] [place], [address] Calcium [Mass/Vol] 9.5 mg/dL Normal 7.6-11.0 [facility] Comment on above: Order Comment: 157 Performed By: #### M 100.2200, L400.0001 #### [facility] [address] [place], [address] Chloride [Moles/Vol] 98 mmol/L Normal 98-108 [facility] Comment on above: Order Comment: 157 Performed By: #### M 100.2200, L400.0001 #### [facility] [address] [place], [address] CO2 [Moles/Vol] 29.5 mmol/L Normal 21.0-32.0 [facility] Comment on above: Order Comment: 157 Performed By: #### M 100.2200, L400.0001 #### [facility] [address] [place], [address] Creatinine [Mass/Vol] 1.21 mg/dL High 0.70-1.20 [facility] Comment on above: Order Comment: 157 Performed By: #### M 100.2200, L400.0001 #### [facility] [address] [place], [address] GAP 11 Normal 5-15 [facility] Comment on above: Order Comment: 157 Performed By: #### M 100.2200, L400.0001 #### [facility] [address] [place], [address] GFR/1.73 sq M.predicted among non-blacks MDRD (S/P/Bld) [Vol rate/Area] 45 mL/min/{1.73_m2} Low >60 [facility] Comment on above: Order Comment: 157 Result Comment: mL/m in/1.73m2 CKD-EPI Creatinine Equation (2020) Performed By: #### M 100.2200, L400.0001 #### [facility] [address] [place], [address] Glucose [Mass/Vol] 126 mg/dL High 70-99 [facility] Comment on above: Order Comment: 157 Performed By: #### M 100.2200, L400.0001 #### [facility] [address] [place], [address] Potassium [Moles/Vol] 4.2 mmol/L Normal 3.3-5.1 [facility] Comment on above: Order Comment: 157 Performed By: #### M 100.2200, L400.0001 #### [facility] [address] [place], [address] Sodium [Moles/Vol] 139 mmol/L Normal 133-145 [facility] Comment on above: Order Comment: 157 Performed By: #### M 100.2200, L400.0001 #### [facility] [address] [place], [address] Urea nitrogen [Mass/Vol] 35 mg/dL High 4-19 [facility] Comment on above: Order Comment: 157 Performed By: #### M 100.2200, L400.0001 #### [facility] [address] [place], [address] Carbon dioxide, total [Moles /volume] in Central venous bloodOrdered By: Melissa Reed on 11-28-2024 CO2 [Moles/Vol] 29.5 mmol/L 21.0-32.0 [facility] Chloride assayOrdered By: Sd Reed on 11-28-2024 Chloride [Moles/Vol] 98 mmol/L 98-108 [facility] Glomerular filtration rate ( GFR) estimation/1.73 sq m using serum, plasma, or whole bOrdered By: Melissa Reed on 11-28-2024 GFR/1.73 sq M.predicted among non-blacks MDRD (S/P/Bld) [Vol rate/Area] 45 mL/min/{1.73_m2} Low >60 [facility] Comment on above: mL/min/1.73m2 CKD-EP I Creatinine Equation (2020) Magnesiumon 11-28-2024 Magnesium [Mass/Vol] 2.4 mg/dL High 1.5-2.2 [facility] Comment on above: Order Comment: 157 Performed By: #### M 100.2200, L400.0001 #### [facility] [address] [place], [address] Magnesium measurement (mass/ volume)Ordered By: Melissa Reed on 11-28-2024 Magnesium (Unsp spec) [Mass/Vol] 2.4 mg/dL High 1.5-2.2 [facility] Potassium measurement (mass/ volume)Ordered By: Melissa Reed on 11-28-2024 Potassium (Unsp spec) [Mass/Vol] 4.2 mmol/L 3.3-5.1 [facility] Serum creatinine measurement (mass/volume)Ordered By: Melissa Reed on 11-28-2024 Creatinine [Mass/Vol] 1.21 mg/dL High 0.70-1.20 [facility] Serum glucose measurement (m ass/volume)Ordered By: Melissa Reed on 11-28-2024 Glucose [Mass/Vol] 126 mg/dL High 70-99 [facility] Serum or plasma calcium danae urement (mass/volume)Ordered By: Melissa Reed on 11-28-2024 Calcium [Mass/Vol] 9.5 mg/dL 7.6-11.0 [facility] Serum or plasma urea nitroge n measurement (mass/volume)Ordered By: Melissa Reed on 11-28-2024 Urea nitrogen [Mass/Vol] 35 mg/dL High 4-19 [facility] Sodium levelOrdered By: Rubin Reed on 11-28-2024 Sodium [Moles/Vol] 139 mmol/L 133-145 [facility] Anion gap in Serum or Plasma Ordered By: Melissa Reed on 11-14-2024 Anion gap [Moles/Vol] 9 mmol/L 5-15 [facility] BUN/creatinine ratioOrdered By: Melissa Reed on 11-14-2024 Urea nitrogen/Creatinine [Mass ratio] 21.3 mg/mg High 10- [facility] Basic Metabolic Profile (BMP )on 11-14-2024 BUN/CRE 21.3 RATIO High 04-07 [facility] Comment on above: Performed By: #### M 100.2200, L400.0001 #### [facility] [address] [place], [address] Calcium [Mass/Vol] 8.6 mg/dL Normal 7.6-11.0 [facility] Comment on above: Performed By: #### M 100.2200, L400.0001 #### [facility] [address] [place], [address] Chloride [Moles/Vol] 101 mmol/L Normal 98-108 [facility] Comment on above: Performed By: #### M 100.2200, L400.0001 #### [facility] [address] [place], [address] CO2 [Moles/Vol] 29.7 mmol/L Normal 21.0-32.0 [facility] Comment on above: Performed By: #### M 100.2200, L400.0001 #### [facility] [address] [place], [address] Creatinine [Mass/Vol] 1.04 mg/dL Normal 0.70-1.20 [facility] Comment on above: Performed By: #### M 100.2200, L400.0001 #### [facility] [address] [place], [address] GAP 9 Normal 5-15 [facility] Comment on above: Performed By: #### M 100.2200, L400.0001 #### [facility] [address] [place], [address] GFR/1.73 sq M.predicted among non-blacks MDRD (S/P/Bld) [Vol rate/Area] 54 mL/min/{1.73_m2} Low >60 [facility] Comment on above: Result Comment: mL/m in/1.73m2 CKD-EPI Creatinine Equation (2020) Performed By: #### M 100.2200, L400.0001 #### [facility] [address] [place], [address] Glucose [Mass/Vol] 179 mg/dL High 70-99 [facility] Comment on above: Performed By: #### M 100.2200, L400.0001 #### [facility] [address] [place], [address] Potassium [Moles/Vol] 4.1 mmol/L Normal 3.3-5.1 [facility] Comment on above: Performed By: #### M 100.2200, L400.0001 #### [facility] [address] [place], [address] Sodium [Moles/Vol] 140 mmol/L Normal 133-145 [facility] Comment on above: Performed By: #### M 100.2200, [id number] #### [facility] [address] [place], [address] Urea nitrogen [Mass/Vol] 22 mg/dL High 4-19 [facility] Comment on above: Performed By: #### M 100.2200, L400.0001 #### [facility] [address] [place], [address] Carbon dioxide, total [Moles /volume] in Central venous bloodOrdered By: Melissa Reed on 11-14-2024 CO2 [Moles/Vol] 29.7 mmol/L 21.0-32.0 [facility] Chloride assayOrdered By: Sd Reed on 11-14-2024 Chloride [Moles/Vol] 101 mmol/L 98-108 [facility] Glomerular filtration rate ( GFR) estimation/1.73 sq m using serum, plasma, or whole bOrdered By: Melissa Reed on 11-14-2024 GFR/1.73 sq M.predicted among non-blacks MDRD (S/P/Bld) [Vol rate/Area] 54 mL/min/{1.73_m2} Low >60 [facility] Comment on above: mL/min/1.73m2 CKD-EP I Creatinine Equation (2020) Magnesiumon 11-14-2024 Magnesium [Mass/Vol] 2.1 mg/dL Normal 1.5-2.2 [facility] Comment on above: Performed By: #### M 100.2200, L400.0001 #### [facility] [address] [place], [address] Magnesium measurement (mass/ volume)Ordered By: Melissa Reed on 11-14-2024 Magnesium (Unsp spec) [Mass/Vol] 2.1 mg/dL 1.5-2.2 [facility] Potassium measurement (mass/ volume)Ordered By: Melissa Reed on 11-14-2024 Potassium (Unsp spec) [Mass/Vol] 4.1 mmol/L 3.3-5.1 [facility] Serum creatinine measurement (mass/volume)Ordered By: Melissa Reed on 11-14-2024 Creatinine [Mass/Vol] 1.04 mg/dL 0.70-1.20 [facility] Serum glucose measurement (m ass/volume)Ordered By: Melissa Reed on 11-14-2024 Glucose [Mass/Vol] 179 mg/dL High 70-99 [facility] Serum or plasma calcium danae urement (mass/volume)Ordered By: Melissa Reed on 11-14-2024 Calcium [Mass/Vol] 8.6 mg/dL 7.6-11.0 [facility] Serum or plasma urea nitroge n measurement (mass/volume)Ordered By: Melissa Reed on 11-14-2024 Urea nitrogen [Mass/Vol] 22 mg/dL High 4-19 [facility] Sodium levelOrdered By: Rubin Reed on 11-14-2024 Sodium [Moles/Vol] 140 mmol/L 133-145 [facility] Anion gap in Serum or Plasma Ordered By: Melissa Reed on 11-08-2024 Anion gap [Moles/Vol] 10 mmol/L 5-15 [facility] BUN/creatinine ratioOrdered By: Melissa Reed on 11-08-2024 Urea nitrogen/Creatinine [Mass ratio] 24.4 mg/mg High 10-20 [facility] Basic Metabolic Profile (BMP )on 11-08-2024 BUN/CRE 24.4 RATIO High 10-20 [facility] Comment on above: Order Comment: 157 Performed By: #### M 100.2200, L400.0001 #### [facility] [address] [place], [address] Calcium [Mass/Vol] 8.8 mg/dL Normal 7.6-11.0 [facility] Comment on above: Order Comment: 157 Performed By: #### M 100.2200, L400.0001 #### [facility] [address] [place], [address] Chloride [Moles/Vol] 101 mmol/L Normal 98-108 [facility] Comment on above: Order Comment: 157 Performed By: #### M 100.0, L400.0001 #### [facility] [address] [place], [address] CO2 [Moles/Vol] 28.3 mmol/L Normal 21.0-32.0 [facility] Comment on above: Order Comment: 157 Performed By: #### M 100.0, L400.0001 #### [facility] [address] [place], [address] Creatinine [Mass/Vol] 1.08 mg/dL Normal 0.70-1.20 [facility] Comment on above: Order Comment: 157 Performed By: #### M 100.2200, L400.0001 #### [facility] [address] [place], [address] GAP 10 Normal 5-15 [facility] Comment on above: Order Comment: 157 Performed By: #### M 100.2200, L400.0001 #### [facility] [address] [place], [address] GFR/1.73 sq M.predicted among non-blacks MDRD (S/P/Bld) [Vol rate/Area] 52 mL/min/{1.73_m2} Low >60 [facility] Comment on above: Order Comment: 157 Result Comment: mL/m in/1.73m2 CKD-EPI Creatinine Equation (2020) Performed By: #### M 100.2200, L400.0001 #### [facility] [address] [place], [address] Glucose [Mass/Vol] 104 mg/dL High 70-99 [facility] Comment on above: Order Comment: 157 Performed By: #### M 100.2200, L400.0001 #### [facility] [address] [place], [address] Potassium [Moles/Vol] 3.6 mmol/L Normal 3.3-5.1 [facility] Comment on above: Order Comment: 157 Performed By: #### M 100.2200, L400.0001 #### [facility] [address] [place], [address] Sodium [Moles/Vol] 138 mmol/L Normal 133-145 [facility] Comment on above: Order Comment: 157 Performed By: #### M 100.2200, L400.0001 #### [facility] [address] [place], [address] Urea nitrogen [Mass/Vol] 26 mg/dL High 4-19 [facility] Comment on above: Order Comment: 157 Performed By: #### M 100.2200, L400.0001 #### [facility] [address] [place], [address] Bilirubin directOrdered By: Melissa Reed on 11-08-2024 Bilirubin.direct [Mass/Vol] 0.22 mg/dL 0.00-0.30 [facility] Bilirubin, totalOrdered By: Melissa Reed on 11-08-2024 Bilirubin [Mass/Vol] 0.46 mg/dL 0.00-1.30 [facility] CBC-Complete Blood Cnt No Di ffon 11-08-2024 Erythrocyte distribution width (RBC) [Ratio] 12.8 % Normal 11.6-14.6 [facility] Comment on above: Order Comment: 157 Performed By: #### M 100.2200, L400.0001 #### [facility] [address] [place], [address] Hematocrit (Bld) [Volume fraction] 36.6 % Low 37-47 [facility] Comment on above: Order Comment: 157 Performed By: #### M 100.2200, L400.0001 #### [facility] [address] [place], [address] Hemoglobin (Bld) [Mass/Vol] 11.6 g/dL Low 12.0-15.0 [facility] Comment on above: Order Comment: 157 Performed By: #### M 100.2200, L400.0001 #### [facility] [address] [place], [address] MCH (RBC) [Entitic mass] 30.9 pg Normal 27.0-32.0 [facility] Comment on above: Order Comment: 157 Performed By: #### M 100.2200, L400.0001 #### [facility] [address] [place], [address] MCHC (RBC) [Mass/Vol] 31.7 g/dL Low 32-36 [facility] Comment on above: Order Comment: 157 Performed By: #### M 100.2200, [id number] #### [facility] [address] [place], [address] MCV (RBC) [Entitic vol] 97.6 fL Normal 81-99 [facility] Comment on above: Order Comment: 157 Performed By: #### M 100.2200, L400.0001 #### [facility] [address] [place], [address] Platelet mean volume (Bld) [Entitic vol] 10.2 fL Normal 6.2-12.0 [facility] Comment on above: Order Comment: 157 Performed By: #### M 100.2200, L400.0001 #### [facility] [address] [place], [address] Platelets (Bld) [#/Vol] 228 10*3/uL Normal 150-450 [facility] Comment on above: Order Comment: 157 Performed By: #### M 100.2200, L400.0001 #### [facility] [address] [place], [address] RBC (Bld) [#/Vol] 3.75 10*6/uL Low 4.2-5.4 [facility] Comment on above: Order Comment: 157 Performed By: #### M 100.2200, L400.0001 #### [facility] [address] [place], [address] RDW SD 46.0 fl High 35.1-43.9 [facility] Comment on above: Order Comment: 157 Performed By: #### M 100.2200, L400.0001 #### [facility] [address] [place], [address] WBC (Bld) [#/Vol] 8.4 10*3/uL Normal 4.4-11.0 [facility] Comment on above: Order Comment: 157 Performed By: #### M 100.2200, L400.0001 #### [facility] [address] [place], [address] Carbon dioxide, total [Moles /volume] in Central venous bloodOrdered By: Melissa Reed on 11-08-2024 CO2 [Moles/Vol] 28.3 mmol/L 21.0-32.0 [facility] Chloride assayOrdered By: Sd Reed on 11-08-2024 Chloride [Moles/Vol] 101 mmol/L 98-108 [facility] Erythrocyte distribution wid th ratioOrdered By: Melissa Reed on 11-08-2024 Erythrocyte distribution width (RBC) [Ratio] 12.8 % 11.6-14.6 [facility] Erythrocyte distribution wid th standard deviationOrdered By: Melissa Reed on 11-08-2024 Erythrocyte distribution width (RBC) [Ratio] 46.0 fl High 35.1-43.9 [facility] Glomerular filtration rate ( GFR) estimation/1.73 sq m using serum, plasma, or whole bOrdered By: Melissa Reed on 11-08-2024 GFR/1.73 sq M.predicted among non-blacks MDRD (S/P/Bld) [Vol rate/Area] 52 mL/min/{1.73_m2} Low >60 [facility] Comment on above: mL/min/1.73m2 CKD-EP I Creatinine Equation (2020) Hematocrit Auto (Bld) [Volum e fraction]Ordered By: Melissa Reed on 11-08-2024 Hematocrit (Bld) [Volume fraction] 36.6 % Low 37-47 [facility] Hemoglobin measurementOrdere d By: Melissa Reed on 11-08-2024 Hemoglobin (Bld) [Mass/Vol] 11.6 g/dL Low 12.0-15.0 [facility] - Chemistry and C hemistry - challengeOrdered By: Melissa Reed on 11-08-2024 AST [Catalytic activity/Vol] 81 U/L High <32 [facility] Liver Profileon 11-08-2024 Albumin [Mass/Vol] 3.3 g/dL Low 3.4-4.8 [facility] Comment on above: Order Comment: 157 Performed By: #### L 500.2500, L501.5200 #### [facility] [address] [place], [place], [address] ALK PHOS 110 U/L High 35-104 [facility] Comment on above: Order Comment: 157 Performed By: #### L 500.2500, L501.5200 #### [facility] [address] [place], [address] ALT [Catalytic activity/Vol] 87 U/L High <=34 [facility] Comment on above: Order Comment: 157 Performed By: #### L 500.2500, L501.5200 #### [facility] [address] [place], [address] AST [Catalytic activity/Vol] 81 U/L High <=31 [facility] Comment on above: Order Comment: 157 Performed By: #### L 500.2500, L501.5200 #### [facility] [address] [place], [address] Bilirubin [Mass/Vol] 0.46 mg/dL Normal 0.00-1.30 [facility] Comment on above: Order Comment: 157 Performed By: #### L 500.2500, L501.5200 #### [facility] [address] [place], [address] Bilirubin.direct [Mass/Vol] 0.22 mg/dL Normal 0.00-0.30 [facility] Comment on above: Order Comment: 157 Performed By: #### L 500.2500, L501.5200 #### [facility] [address] [place], [address] Globulin (S) [Mass/Vol] 2.9 g/dL Normal 2.2-4.2 [facility] Comment on above: Order Comment: 157 Performed By: #### L 500.2500, L501.5200 #### [facility] [address] [place], [address] T PROT 6.3 g/dL Normal 5.9-8.4 [facility] Comment on above: Order Comment: 157 Performed By: #### L 500.2500, L501.5200 #### [facility] [address] [place], [address] MCV (mean corpuscular volume ) determinationOrdered By: Melissa Reed on 11-08-2024 MCV (RBC) [Entitic vol] 97.6 fL 81-99 [facility] Magnesiumon 11-08-2024 Magnesium [Mass/Vol] 1.8 mg/dL Normal 1.5-2.2 [facility] Comment on above: Order Comment: 157 Performed By: #### L 500.2500, L501.5200 #### [facility] [address] [place], [address] Magnesium measurement (mass/ volume)Ordered By: Melissa Reed on 11-08-2024 Magnesium (Unsp spec) [Mass/Vol] 1.8 mg/dL 1.5-2.2 [facility] Mean corpuscular hemoglobin (MCH) determinationOrdered By: Melissa Reed on 11-08-2024 MCH (RBC) [Entitic mass] 30.9 pg 27.0-32.0 [facility] Mean corpuscular hemoglobin concentration (MCHC) determinationOrdered By: Melissa Reed on 11-08-2024 MCHC (RBC) [Mass/Vol] 31.7 g/dL Low 32-36 [facility] Mean platelet volume determi nationOrdered By: Melissa Reed on 11-08-2024 Platelet mean volume (Bld) [Entitic vol] 10.2 fL 6.2-12.0 [facility] Platelet countOrdered By: Sd Reed on 11-08-2024 Platelets (Bld) [#/Vol] 228 10*3/uL 150-450 [facility] Potassium measurement (mass/ volume)Ordered By: Melissa Reed on 11-08-2024 Potassium (Unsp spec) [Mass/Vol] 3.6 mmol/L 3.3-5.1 [facility] RBC Auto (Bld) [#/Vol]Ordere d By: Melissa Reed on 11-08-2024 RBC (Bld) [#/Vol] 3.75 10*6/uL Low 4.2-5.4 [facility] Serum creatinine measurement (mass/volume)Ordered By: Melissa Reed on 11-08-2024 Creatinine [Mass/Vol] 1.08 mg/dL 0.70-1.20 [facility] Serum globulin measurementOr dered By: Melissa Reed on 11-08-2024 Globulin (S) [Mass/Vol] 2.9 g/dL 2.2-4.2 [facility] Serum glucose measurement (m ass/volume)Ordered By: Melissa Reed on 11-08-2024 Glucose [Mass/Vol] 104 mg/dL High 70-99 [facility] Serum or plasma alanine bro otransferase (ALT) measurementOrdered By: Melissa Reed on 11-08-2024 ALT [Catalytic activity/Vol] 87 U/L High <35 [facility] Serum or plasma albumin danae urement (mass/volume)Ordered By: Melissa Reed on 11-08-2024 Albumin [Mass/Vol] 3.3 g/dL Low 3.4-4.8 [facility] Serum or plasma alkaline moustapha sphatase measurementOrdered By: Melissa Reed on 11-08-2024 ALP [Catalytic activity/Vol] 110 U/L High 35-104 [facility] Serum or plasma calcium danae urement (mass/volume)Ordered By: Melissa Reed on 11-08-2024 Calcium [Mass/Vol] 8.8 mg/dL 7.6-11.0 [facility] Serum or plasma urea nitroge n measurement (mass/volume)Ordered By: Melissa Rede on 11-08-2024 Urea nitrogen [Mass/Vol] 26 mg/dL High 4-19 [facility] Sodium levelOrdered By: Rubin Reed on 11-08-2024 Sodium [Moles/Vol] 138 mmol/L 133-145 [facility] Total proteinOrdered By: Lillian Reed on 11-08-2024 Protein [Mass/Vol] 6.3 g/dL 5.9-8.4 [facility] White blood cell (WBC) count Ordered By: Melissa Reed on 11-08-2024 WBC (Bld) [#/Vol] 8.4 10*3/uL 4.4-11.0 [facility] Anion gap in Serum or Plasma Ordered By: Melissa Reed on 10-17-2024 Anion gap [Moles/Vol] 9 mmol/L 5- [facility] BUN/creatinine ratioOrdered By: Melissa Reed on 10-17-2024 Urea nitrogen/Creatinine [Mass ratio] 28.5 mg/mg High - [facility] Basic Metabolic Profile (BMP )on 10-17-2024 BUN/CRE 28.5 RATIO High - [facility] Comment on above: Order Comment: 157 Performed By: #### L 500.2500, L501.5200 #### [facility] [address] [place], [address] Calcium [Mass/Vol] 8.7 mg/dL Normal 7.6-11.0 [facility] Comment on above: Order Comment: 157 Performed By: #### L 500.2500, L501.5200 #### [facility] [address] [place], [address] Chloride [Moles/Vol] 103 mmol/L Normal 98-108 [facility] Comment on above: Order Comment: 157 Performed By: #### L 500.2500, L501.5200 #### [facility] [address] [place], [address] CO2 [Moles/Vol] 28.9 mmol/L Normal 21.0-32.0 [facility] Comment on above: Order Comment: 157 Performed By: #### L 500.2500, L501.5200 #### [facility] [address] [place], [address] Creatinine [Mass/Vol] 1.04 mg/dL Normal 0.70-1.20 [facility] Comment on above: Order Comment: 157 Performed By: #### L 500.2500, L501.5200 #### [facility] [address] [place], [address] GAP 9 Normal -15 [facility] Comment on above: Order Comment: 157 Performed By: #### L 500.2500, L501.5200 #### [facility] [address] [place], [address] GFR/1.73 sq M.predicted among non-blacks MDRD (S/P/Bld) [Vol rate/Area] 54 mL/min/{1.73_m2} Low >60 [facility] Comment on above: Order Comment: 157 Result Comment: mL/m in/1.73m2 CKD-EPI Creatinine Equation (2020) Performed By: #### L 500.2500, L501.5200 #### [facility] [address] [place], [address] Glucose [Mass/Vol] 106 mg/dL High 70-99 [facility] Comment on above: Order Comment: 157 Performed By: #### L 500.2500, L501.5200 #### [facility] [address] [place], [address] Potassium [Moles/Vol] 3.8 mmol/L Normal 3.3-5.1 [facility] Comment on above: Order Comment: 157 Performed By: #### L 500.2500, L501.5200 #### [facility] [address] [place], [address] Sodium [Moles/Vol] 140 mmol/L Normal 133-145 [facility] Comment on above: Order Comment: 157 Performed By: #### L 500.2500, L501.5200 #### [facility] [address] [place], [address] Urea nitrogen [Mass/Vol] 30 mg/dL High 4-19 [facility] Comment on above: Order Comment: 157 Performed By: #### L 500.2500, L501.5200 #### [facility] [address] [place], [address] Carbon dioxide, total [Moles /volume] in Central venous bloodOrdered By: Melissa Reed on 10-17-2024 CO2 [Moles/Vol] 28.9 mmol/L 21.0-32.0 [facility] Chloride assayOrdered By: Sd Reed on 10-17-2024 Chloride [Moles/Vol] 103 mmol/L 98-108 [facility] Glomerular filtration rate ( GFR) estimation/1.73 sq m using serum, plasma, or whole bOrdered By: Melissa Reed on 10-17-2024 GFR/1.73 sq M.predicted among non-blacks MDRD (S/P/Bld) [Vol rate/Area] 54 mL/min/{1.73_m2} Low >60 [facility] Comment on above: mL/min/1.73m2 CKD-EP I Creatinine Equation (2020) Magnesiumon 10-17-2024 Magnesium [Mass/Vol] 2.3 mg/dL High 1.5-2.2 [facility] Comment on above: Order Comment: 157 Performed By: #### L 500.2500, L501.5200 #### [facility] [address] [place], [address] Magnesium measurement (mass/ volume)Ordered By: Melissa eRed on 10-17-2024 Magnesium (Unsp spec) [Mass/Vol] 2.3 mg/dL High 1.5-2.2 [facility] Potassium measurement (mass/ volume)Ordered By: Melissa Reed on 10-17-2024 Potassium (Unsp spec) [Mass/Vol] 3.8 mmol/L 3.3-5.1 [facility] Serum creatinine measurement (mass/volume)Ordered By: Melissa Reed on 10-17-2024 Creatinine [Mass/Vol] 1.04 mg/dL 0.70-1.20 [facility] Serum glucose measurement (m ass/volume)Ordered By: Melissa Reed on 10-17-2024 Glucose [Mass/Vol] 106 mg/dL High 70-99 [facility] Serum or plasma calcium danae urement (mass/volume)Ordered By: Melissa Reed on 10-17-2024 Calcium [Mass/Vol] 8.7 mg/dL 7.6-11.0 [facility] Serum or plasma urea nitroge n measurement (mass/volume)Ordered By: Melissa Reed on 10-17-2024 Urea nitrogen [Mass/Vol] 30 mg/dL High - [facility] Sodium levelOrdered By: Rubin Reed on 10-17-2024 Sodium [Moles/Vol] 140 mmol/L 133-145 [facility] Anion gap in Serum or Plasma Ordered By: Melissa Reed on 10-03-2024 Anion gap [Moles/Vol] 10 mmol/L 5-15 [facility] BUN/creatinine ratioOrdered By: Melissa Reed on 10-03-2024 Urea nitrogen/Creatinine [Mass ratio] 24.4 mg/mg High 10- [facility] Basic Metabolic Profile (BMP )on 10-03-2024 BUN/CRE 24.4 RATIO High 04-07 [facility] Comment on above: Order Comment: 157 Performed By: #### L 500.2500, L501.5200 #### [facility] Laboratory [address] [place], [address] Calcium [Mass/Vol] 8.7 mg/dL Normal 7.6-11.0 [facility] Comment on above: Order Comment: 157 Performed By: #### L 500.2500, L501.5200 #### [facility] [address] [place], [address] Chloride [Moles/Vol] 102 mmol/L Normal 98-108 [facility] Comment on above: Order Comment: 157 Performed By: #### L 500.2500, L501.5200 #### [facility] [address] [place], [address] CO2 [Moles/Vol] 27.9 mmol/L Normal 21.0-32.0 [facility] Comment on above: Order Comment: 157 Performed By: #### L 500.2500, L501.5200 #### [facility] [address] [place], [address] Creatinine [Mass/Vol] 1.08 mg/dL Normal 0.70-1.20 [facility] Comment on above: Order Comment: 157 Performed By: #### L 500.2500, L501.5200 #### [facility] [address] [place], [address] GAP 10 Normal 5-15 [facility] Comment on above: Order Comment: 157 Performed By: #### L 500.2500, L501.5200 #### [facility] [address] [place], [address] GFR/1.73 sq M.predicted among non-blacks MDRD (S/P/Bld) [Vol rate/Area] 52 mL/min/{1.73_m2} Low >60 [facility] Comment on above: Order Comment: 157 Result Comment: mL/m in/1.73m2 CKD-EPI Creatinine Equation (2020) Performed By: #### L 500.2500, L501.5200 #### [facility] [address] [place], [address] Glucose [Mass/Vol] 179 mg/dL High 70-99 [facility] Comment on above: Order Comment: 157 Performed By: #### L 500.2500, L501.5200 #### [facility] [address] [place], [address] Potassium [Moles/Vol] 3.8 mmol/L Normal 3.3-5.1 [facility] Comment on above: Order Comment: 157 Performed By: #### L 500.2500, L501.5200 #### [facility] [address] [place], [address] Sodium [Moles/Vol] 139 mmol/L Normal 133-145 [facility] Comment on above: Order Comment: 157 Performed By: #### L 500.2500, L501.5200 #### [facility] [address] [place], [address] Urea nitrogen [Mass/Vol] 26 mg/dL High 4-19 [facility] Comment on above: Order Comment: 157 Performed By: #### L 500.2500, L501.5200 #### [facility] [address] [place], [address] Carbon dioxide, total [Moles /volume] in Central venous bloodOrdered By: Melissa Reed on 10-03-2024 CO2 [Moles/Vol] 27.9 mmol/L 21.0-32.0 [facility] Chloride assayOrdered By: Sd Reed on 10-03-2024 Chloride [Moles/Vol] 102 mmol/L 98-108 [facility] GFR/1.73 sq M.predicted denise g non-blacks MDRD (S/P/Bld) [Vol rate/Area]Ordered By: Melissa Reed on 10-03-2024 Estimated GFR (MDRD) Non-Af Amer 52 Low >60 [facility] Comment on above: mL/min/1.73m2 CKD-EP I Creatinine Equation (2020) Glomerular filtration rate ( GFR) estimation/1.73 sq m using serum, plasma, or whole bOrdered By: Melissa Reed on 10-03-2024 GFR/1.73 sq M.predicted among non-blacks MDRD (S/P/Bld) [Vol rate/Area] 52 mL/min/{1.73_m2} Low >60 [facility] Comment on above: mL/min/1.73m2 CKD-EP I Creatinine Equation (2020) Hemoglobin A1con 10-03-2024 HbA1c (Bld) [Mass fraction] 5.9 % High <=5.6 [facility] Comment on above: Order Comment: 157 Result Comment: Norm al < 5.7 % Prediabetic 5.7 - 6.4 % Diabetic >or= 6.5 % Please note range changes. Performed By: #### L 500.2500, L501.5200 #### [facility] [address] [place], [place], [address] Hemoglobin A1c percentageOrd ered By: Melissa Reed on 10-03-2024 HbA1c (Bld) [Mass fraction] 5.9 % High <5.7 [facility] Comment on above: Normal < 5.7 % Predi abetic 5.7 - 6.4 % Diabetic >or= 6.5 % Please note range changes. Magnesiumon 10-03-2024 Magnesium [Mass/Vol] 2.2 mg/dL Normal 1.5-2.2 [facility] Comment on above: Order Comment: 157 Performed By: #### L 500.2500, L501.5200 #### [facility] [address] [place], [place], [address] Magnesium (Unsp spec) [Mass/ Vol]Ordered By: Melissa Reed on 10-03-2024 Magnesium [Mass/Vol] 2.2 mg/dL 1.5-2.2 [facility] Magnesium measurement (mass/ volume)Ordered By: Melissa Reed on 10-03-2024 Magnesium (Unsp spec) [Mass/Vol] 2.2 mg/dL 1.5-2.2 [facility] Potassium (Unsp spec) [Mass/ Vol]Ordered By: Melissa Reed on 10-03-2024 Potassium [Moles/Vol] 3.8 mmol/L 3.3-5.1 [facility] Potassium measurement (mass/ volume)Ordered By: Melissa Reed on 10-03-2024 Potassium (Unsp spec) [Mass/Vol] 3.8 mmol/L 3.3-5.1 [facility] Serum creatinine measurement (mass/volume)Ordered By: Melissa Reed on 10-03-2024 Creatinine [Mass/Vol] 1.08 mg/dL 0.70-1.20 [facility] Serum glucose measurement (m ass/volume)Ordered By: Melissa Reed on 10-03-2024 Glucose [Mass/Vol] 179 mg/dL High 70-99 [facility] Serum or plasma calcium danae urement (mass/volume)Ordered By: Melissa Reed on 10-03-2024 Calcium [Mass/Vol] 8.7 mg/dL 7.6-11.0 [facility] Serum or plasma urea nitroge n measurement (mass/volume)Ordered By: Melissa Reed on 10-03-2024 Urea nitrogen [Mass/Vol] 26 mg/dL High 4-19 [facility] Sodium levelOrdered By: Rubin Reed on 10-03-2024 Sodium [Moles/Vol] 139 mmol/L 133-145 [facility] Urine Cultureon 09-26-2024 [facility] Results called on 09/26/24-1126 by MARYLOU to [facility] (RIZWAN) . Copy of report sent to Infection Control Printer [id number] 09/25/24 1616 ASNIPES. ESBL Escherichia coli Troutman Count 25,000-50,000 MARKER ESBL producing OrganismA MARKER [...] S Tobramycin Islt LAVINIA <=1 S Normal [facility] Comment on above: Performed By: #### L 500.2500, L501.5200 #### [facility] [address] [place], [address] Bacteria LM.HPF (Urine sed) [#/Area]Ordered By: Melissa Reed on 09-23-2024 Urine Bacteria RARE /hpf None Seen [facility] Bilirubin Test strip Ql (U)O rdered By: Melissa Reed on 09-23-2024 Bilirubin Ql (U) Negative Negative [facility] Epithelial cells.squamous LM Ql (Urine sed)Ordered By: Melissa Reed on 09-23-2024 Epithelial cells.squamous LM.HPF (Urine sed) [#/Area] 0 /[HPF] 5-10 [facility] Glucose Ql (U)Ordered By: Sd Reed on 09-23-2024 Urine Glucose (UA) Normal mg/dl Normal [facility] Ketones Test strip Ql (U)Ord ered By: Melissa Reed on 09-23-2024 Ketones Ql (U) Negative Negative [facility] Microscopic analysis of urin e for red blood cells (RBC)Ordered By: Melissa Reed on 09-23-2024 Microscopic analysis of urine for red blood cells (RBC) 0 SEEN /hpf 0-5 [facility] Urine RBC 0 SEEN /hpf 0-5 [facility] Mucus LM Ql (Urine sed)Order ed By: Melissa Reed on 09-23-2024 Mucus Ql (Urine sed) 0 SEEN /hpf [facility] Nitrite Test strip Ql (U)Ord ered By: Melissa Reed on 09-23-2024 Nitrite Ql (U) Negative Negative [facility] Protein Test strip Ql (U)Ord ered By: Melissa Reed on 09-23-2024 Protein Ql (U) 30 mg/dl High Negative [facility] Squamous epithelial cells de tection in urine sediment by light microscopyOrdered By: Melissa Reed on 09-23-2024 Epithelial cells.squamous LM Ql (Urine sed) 0-5 SEEN /hpf 5-10 [facility] Urinalysis, Completeon 09-23 BACTERIA RARE Normal None Seen [facility] Comment on above: Order Comment: CLEAN CATCH Performed By: #### L 500.2500, L501.5200 #### [facility] [address] [place], [place], [id number] EPI,SQUAMOUS 0-5 SEEN Normal 5-10 [facility] Comment on above: Order Comment: CLEAN CATCH Performed By: #### L 500.2500, L501.5200 #### [facility] [address] [place], [address] WBC 50-100 SEEN Normal 0-5 [facility] Comment on above: Order Comment: CLEAN CATCH Performed By: #### L 500.2500, L501.5200 #### [facility] [address] [place], [address] Mucus Ql (Urine sed) 0 SEEN Normal [facility] Comment on above: Order Comment: CLEAN CATCH Performed By: #### L 500.2500, L501.5200 #### [facility] [address] [place], [address] RBC 0 SEEN Normal 0-5 [facility] Comment on above: Order Comment: CLEAN CATCH Performed By: #### L 500.2500, L501.5200 #### [facility] [address] [place], [address] Urine blood detectionOrdered By: Melissa Reed on 09-23-2024 Urine Occult Blood 25 /ul High Negative [facility] Urine clarityOrdered By: Lillian Reed on 09-23-2024 Clarity (U) Sl. Cloudy Clear [facility] Urine color determinationOrd ered By: Melissa Reed on 09-23-2024 Color (U) Yellow Yellow [facility] Urine cultureOrdered By: Lillian Reed on 09-23-2024 Bacteria identified Cx Nom (U) ESBL Escherichia coli Abnormal [facility] Urine glucose detectionOrder ed By: Melissa Reed on 09-23-2024 Glucose Ql (U) Normal mg/dl Normal [facility] Urine leukocyte esterase det ection by dipstickOrdered By: Melissa Reed on 09-23-2024 Leukocyte esterase Test strip Ql (U) 500 /ul High Negative [facility] Urine pHOrdered By: Melissa kerr on 09-23-2024 pH (U) 6.0 [pH] 5.0 - 8.0 [facility] Urine sediment bacteria coun t by microscopy (number/high power field)Ordered By: Melissa Reed on 09-23-2024 Bacteria LM.HPF (Urine sed) [#/Area] RARE /hpf None Seen [facility] Urine specific gravity measu rementOrdered By: Melissa Reed on 09-23-2024 Specific gravity (U) [Rel density] 1.015 1.002-1.030 [facility] Urine urobilinogen measureme ntOrdered By: Melissa Reed on 09-23-2024 Urobilinogen Ql (U) Normal mg/dl Normal [facility] Urobilinogen Ql (U)Ordered B y: Melissa Reed on 09-23-2024 Urine Urobilinogen Normal mg/dl Normal [facility] White blood cell countOrdere d By: Melissa Reed on 09-23-2024 Urine WBC 50-100 SEEN /hpf 0-5 [facility] White blood cell count 50-100 SEEN /hpf 0-5 [facility] Anion gap in Serum or Plasma Ordered By: Melissa Reed on 09-19-2024 Anion gap [Moles/Vol] 9 mmol/L 5-15 [facility] BUN/creatinine ratioOrdered By: Melissa Reed on 09-19-2024 Urea nitrogen/Creatinine [Mass ratio] 30.0 mg/mg High 10-20 [facility] Basic Metabolic Profile (BMP )on 09-19-2024 BUN/CRE 30.0 RATIO High 10-20 [facility] Comment on above: Order Comment: 157 Performed By: #### L 501.5200, L500.2500 #### [facility] [address] [place], [address] Calcium [Mass/Vol] 8.6 mg/dL Normal 7.6-11.0 [facility] Comment on above: Order Comment: 157 Performed By: #### L 501.5200, L500.2500 #### [facility] [address] [place], [address] Chloride [Moles/Vol] 103 mmol/L Normal 98-108 [facility] Comment on above: Order Comment: 157 Performed By: #### L 501.5200, L500.2500 #### [facility] [address] [place], [address] CO2 [Moles/Vol] 27.2 mmol/L Normal 21.0-32.0 [facility] Comment on above: Order Comment: 157 Performed By: #### L 501.5200, L500.2500 #### [facility] [address] [place], [address] Creatinine [Mass/Vol] 1.13 mg/dL Normal 0.70-1.20 [facility] Comment on above: Order Comment: 157 Performed By: #### L 501.5200, L500.2500 #### [facility] [address] [place], [address] GAP 9 Normal 5-15 [facility] Comment on above: Order Comment: 157 Performed By: #### L 501.5200, L500.2500 #### [facility] [address] [place], [address] GFR/1.73 sq M.predicted among non-blacks MDRD (S/P/Bld) [Vol rate/Area] 49 mL/min/{1.73_m2} Low >60 [facility] Comment on above: Order Comment: 157 Result Comment: mL/m in/1.73m2 CKD-EPI Creatinine Equation (2020) Performed By: #### L 501.5200, L500.2500 #### [facility] [address] [place], [address] Glucose [Mass/Vol] 165 mg/dL High 70-99 [facility] Comment on above: Order Comment: 157 Performed By: #### L 501.5200, L500.2500 #### [facility] [address] [place], [address] Potassium [Moles/Vol] 4.0 mmol/L Normal 3.3-5.1 [facility] Comment on above: Order Comment: 157 Performed By: #### L 501.5200, L500.2500 #### [facility] [address] [place], [address] Sodium [Moles/Vol] 140 mmol/L Normal 133-145 [facility] Comment on above: Order Comment: 157 Performed By: #### L 501.5200, L500.2500 #### [facility] [address] [place], [address] Urea nitrogen [Mass/Vol] 34 mg/dL High 4-19 [facility] Comment on above: Order Comment: 157 Performed By: #### L 501.5200, L500.2500 #### [facility] [address] [place], [address] Carbon dioxide, total [Moles /volume] in Central venous bloodOrdered By: Melissa Reed on 09-19-2024 CO2 [Moles/Vol] 27.2 mmol/L 21.0-32.0 [facility] Chloride assayOrdered By: Sd Reed on 09-19-2024 Chloride [Moles/Vol] 103 mmol/L 98-108 [facility] GFR/1.73 sq M.predicted denise g non-blacks MDRD (S/P/Bld) [Vol rate/Area]Ordered By: Melissa Reed on 09-19-2024 Estimated GFR (MDRD) Non-Af Amer 49 Low >60 [facility] Comment on above: mL/min/1.73m2 CKD-EP I Creatinine Equation (2020) Glomerular filtration rate ( GFR) estimation/1.73 sq m using serum, plasma, or whole bOrdered By: Melissa Reed on 09-19-2024 GFR/1.73 sq M.predicted among non-blacks MDRD (S/P/Bld) [Vol rate/Area] 49 mL/min/{1.73_m2} Low >60 [facility] Comment on above: mL/min/1.73m2 CKD-EP I Creatinine Equation (2020) Magnesiumon 09-19-2024 Magnesium [Mass/Vol] 2.2 mg/dL Normal 1.5-2.2 [facility] Comment on above: Order Comment: 157 Performed By: #### L 501.5200, L500.2500 #### [facility] [address] [place], [address] Magnesium (Unsp spec) [Mass/ Vol]Ordered By: Melissa Reed on 09-19-2024 Magnesium [Mass/Vol] 2.2 mg/dL 1.5-2.2 [facility] Magnesium measurement (mass/ volume)Ordered By: Melissa Reed on 09-19-2024 Magnesium (Unsp spec) [Mass/Vol] 2.2 mg/dL 1.5-2.2 [facility] Potassium (Unsp spec) [Mass/ Vol]Ordered By: Melissa Reed on 09-19-2024 Potassium [Moles/Vol] 4.0 mmol/L 3.3-5.1 [facility] Potassium measurement (mass/ volume)Ordered By: Melissa Reed on 09-19-2024 Potassium (Unsp spec) [Mass/Vol] 4.0 mmol/L 3.3-5.1 [facility] Serum creatinine measurement (mass/volume)Ordered By: Melissa Reed on 09-19-2024 Creatinine [Mass/Vol] 1.13 mg/dL 0.70-1.20 [facility] Serum glucose measurement (m ass/volume)Ordered By: Melissa Reed on 09-19-2024 Glucose [Mass/Vol] 165 mg/dL High 70-99 [facility] Serum or plasma calcium danae urement (mass/volume)Ordered By: Melissa Reed on 09-19-2024 Calcium [Mass/Vol] 8.6 mg/dL 7.6-11.0 [facility] Serum or plasma urea nitroge n measurement (mass/volume)Ordered By: Melissa Reed on 09-19-2024 Urea nitrogen [Mass/Vol] 34 mg/dL High 4-19 [facility] Sodium levelOrdered By: Rubin Reed on 09-19-2024 Sodium [Moles/Vol] 140 mmol/L 133-145 [facility] Urine Cultureon 09-19-2024 [facility] REPOR T ESCHERICHIA COLI mCIM NEGATIVE [...] to Infection Control Printer [id number] 09/08/24 0701 BLUCAS. ESBL Escherichia coli Troutman Count >100,000 MARKER Possible Carbapenemase producing EnterobacteriaceaeA [...] S Tobramycin Islt LAVINIA <=1 S Normal [facility] Comment on above: Performed By: #### M 100.2200, L400.0001 #### [facility] [address] [place], [place], [id number] Urinalysis, Completeon 09-06 EPI,TRANSITION 0-5 SEEN Normal 0-5 [facility] Comment on above: Order Comment: CLEAN CATCH Performed By: #### M 100.2200, L400.0001 #### [facility] [address] [place], [address] BACTERIA 3+ /hpf Normal None Seen [facility] Comment on above: Order Comment: CLEAN CATCH Performed By: #### M 100.2200, L400.0001 #### [facility] [address] [place], [address] EPI,SQUAMOUS 5-10 SEEN Normal 5-10 [facility] Comment on above: Order Comment: CLEAN CATCH Performed By: #### M 100.2200, L400.0001 #### [facility] [address] [place], [address] RBC 0-5 SEEN Normal 0-5 [facility] Comment on above: Order Comment: CLEAN CATCH Performed By: #### M 100.2200, L400.0001 #### [facility] [address] [place], [address] WBC 25-50 SEEN Normal 0-5 [facility] Comment on above: Order Comment: CLEAN CATCH Performed By: #### M 100.2200, L400.0001 #### [facility] [address] [place], [address] Mucus Ql (Urine sed) 0 SEEN Normal [facility] Comment on above: Order Comment: CLEAN CATCH Performed By: #### M 100.2200, L400.0001 #### [facility] [address] [place], [address] Bilirubin Test strip Ql (U)O rdered By: Melissa Reed on 09-05-2024 Bilirubin Ql (U) Negative Negative [facility] Epithelial cells.squamous LM Ql (Urine sed)Ordered By: Melissa Reed on 09-05-2024 Epithelial cells.squamous LM.HPF (Urine sed) [#/Area] 5 /[HPF] 5-10 [facility] Glucose Ql (U)Ordered By: Sd Reed on 09-05-2024 Urine Glucose (UA) Normal mg/dl Normal [facility] Ketones Test strip Ql (U)Ord ered By: Melissa Reed on 09-05-2024 Ketones Ql (U) Negative Negative [facility] Microscopic analysis of urin e for red blood cells (RBC)Ordered By: Melissa Reed on 09-05-2024 Microscopic analysis of urine for red blood cells (RBC) 0-5 SEEN /hpf 0-5 [facility] Urine RBC 0-5 SEEN /hpf 0-5 [facility] Mucus LM Ql (Urine sed)Order ed By: Melissa Reed on 09-05-2024 Mucus Ql (Urine sed) 0 SEEN /hpf [facility] Nitrite Test strip Ql (U)Ord ered By: Melissa Reed on 09-05-2024 Nitrite Ql (U) Positive High Negative [facility] Protein Test strip Ql (U)Ord ered By: Melissa Reed on 09-05-2024 Protein Ql (U) 30 mg/dl High Negative [facility] Squamous epithelial cells de tection in urine sediment by light microscopyOrdered By: Melissa Reed on 09-05-2024 Epithelial cells.squamous LM Ql (Urine sed) 5-10 SEEN /hpf 5-10 [facility] Transitional cells LM Ql (Ur ine sed)Ordered By: Melissa Reed on 09-05-2024 Urine Transitional Epithelial Cells 0-5 SEEN /hpf 0-5 [facility] Transitional cells detection in urine sediment by light microscopyOrdered By: Melissa Reed on 09-05-2024 Transitional cells LM Ql (Urine sed) 0-5 SEEN /hpf 0-5 [facility] Urine blood detectionOrdered By: Melissa Reed on 09-05-2024 Urine Occult Blood 10 /ul High Negative [facility] Urine clarityOrdered By: Lillian Reed on 09-05-2024 Clarity (U) Sl. Cloudy Clear [facility] Urine color determinationOrd ered By: Melissa Reed on 09-05-2024 Color (U) Yellow Yellow [facility] Urine cultureOrdered By: Lillian Reed on 09-05-2024 Bacteria identified Cx Nom (U) ESBL Escherichia coli Abnormal [facility] Urine glucose detectionOrder ed By: Melissa Reed on 09-05-2024 Glucose Ql (U) Normal mg/dl Normal [facility] Urine leukocyte esterase det ection by dipstickOrdered By: Melissa Reed on 09-05-2024 Leukocyte esterase Test strip Ql (U) 500 /ul High Negative [facility] Urine pHOrdered By: Melissa kerr on 09-05-2024 pH (U) 6.5 [pH] 5.0 - 8.0 [facility] Urine sediment bacteria coun t by microscopy (number/high power field)Ordered By: Melissa Reed on 09-05-2024 Bacteria LM.HPF (Urine sed) [#/Area] 3 /[HPF] None Seen [facility] Urine specific gravity measu rementOrdered By: Melissa Reed on 09-05-2024 Specific gravity (U) [Rel density] 1.015 1.002-1.030 [facility] Urine urobilinogen measureme ntOrdered By: Melissa Reed on 09-05-2024 Urobilinogen Ql (U) Normal mg/dl Normal [facility] Urobilinogen Ql (U)Ordered B y: Melissa Reed on 09-05-2024 Urine Urobilinogen Normal mg/dl Normal [facility] White blood cell countOrdere d By: Melissa Reed on 09-05-2024 Urine WBC 25-50 SEEN /hpf 0-5 [facility] White blood cell count 25-50 SEEN /hpf 0-5 [facility] Anion gap in Serum or Plasma Ordered By: Melissa Reed on 08-22-2024 Anion gap [Moles/Vol] 11 mmol/L 5-15 [facility] BUN/creatinine ratioOrdered By: Melissa Reed on 08-22-2024 Urea nitrogen/Creatinine [Mass ratio] 21.6 mg/mg High - [facility] Basic Metabolic Profile (BMP )on 08-22-2024 BUN/CRE 21.6 RATIO High 04-07 [facility] Comment on above: Performed By: #### M 100.2200, L400.0001 #### [facility] [address] [place], [place], [id number] Calcium [Mass/Vol] 8.8 mg/dL Normal 7.6-11.0 [facility] Comment on above: Performed By: #### M 100.2200, L400.0001 #### [facility] [address] [place], [address] Chloride [Moles/Vol] 103 mmol/L Normal 98-108 [facility] Comment on above: Performed By: #### M 100.2200, L400.0001 #### [facility] [address] [place], [address] CO2 [Moles/Vol] 24.4 mmol/L Normal 21.0-32.0 [facility] Comment on above: Performed By: #### M 100.2200, L400.0001 #### [facility] [address] [place], [address] Creatinine [Mass/Vol] 1.14 mg/dL Normal 0.70-1.20 [facility] Comment on above: Performed By: #### M 100.2200, L400.0001 #### [facility] [address] [place], [address] GAP 11 Normal 5-15 [facility] Comment on above: Performed By: #### M 100.2200, L400.0001 #### [facility] [address] [place], [address] GFR/1.73 sq M.predicted among non-blacks MDRD (S/P/Bld) [Vol rate/Area] 49 mL/min/{1.73_m2} Low >60 [facility] Comment on above: Result Comment: mL/m in/1.73m2 CKD-EPI Creatinine Equation (2020) Performed By: #### M 100.2200, L400.0001 #### [facility] [address] [place], [address] Glucose [Mass/Vol] 104 mg/dL High 70-99 [facility] Comment on above: Performed By: #### M 100.2200, L400.0001 #### [facility] [address] [place], [address] Potassium [Moles/Vol] 4.1 mmol/L Normal 3.3-5.1 [facility] Comment on above: Result Comment: Hemo lysis present, Results??could be affected. ?? Performed By: #### M 100.2200, L400.0001 #### [facility] [address] [place], [address] Sodium [Moles/Vol] 138 mmol/L Normal 133-145 [facility] Comment on above: Performed By: #### M 100.2200, L400.0001 #### [facility] [address] [place], [address] Urea nitrogen [Mass/Vol] 25 mg/dL High 4-19 [facility] Comment on above: Performed By: #### M 100.2200, L400.0001 #### [facility] [address] [place], [address] Carbon dioxide, total [Moles /volume] in Central venous bloodOrdered By: Melissa Reed on 08-22-2024 CO2 [Moles/Vol] 24.4 mmol/L 21.0-32.0 [facility] Chloride assayOrdered By: Sd Reed on 08-22-2024 Chloride [Moles/Vol] 103 mmol/L 98-108 [facility] GFR/1.73 sq M.predicted denise g non-blacks MDRD (S/P/Bld) [Vol rate/Area]Ordered By: Melissa Reed on 08-22-2024 Estimated GFR (MDRD) Non-Af Amer 49 Low >60 [facility] Comment on above: mL/min/1.73m2 CKD-EP I Creatinine Equation (2020) Glomerular filtration rate ( GFR) estimation/1.73 sq m using serum, plasma, or whole bOrdered By: Melissa Reed on 08-22-2024 GFR/1.73 sq M.predicted among non-blacks MDRD (S/P/Bld) [Vol rate/Area] 49 mL/min/{1.73_m2} Low >60 [facility] Comment on above: mL/min/1.73m2 CKD-EP I Creatinine Equation (2020) Magnesiumon 08-22-2024 Magnesium [Mass/Vol] 2.3 mg/dL High 1.5-2.2 [facility] Comment on above: Performed By: #### M 100.2200, L400.0001 #### [facility] [address] [place], [address] Magnesium (Unsp spec) [Mass/ Vol]Ordered By: Melissa Reed on 08-22-2024 Magnesium [Mass/Vol] 2.3 mg/dL High 1.5-2.2 [facility] Magnesium measurement (mass/ volume)Ordered By: Melissa Reed on 08-22-2024 Magnesium (Unsp spec) [Mass/Vol] 2.3 mg/dL High 1.5-2.2 [facility] Potassium (Unsp spec) [Mass/ Vol]Ordered By: Melissa Reed on 08-22-2024 Potassium [Moles/Vol] 4.1 mmol/L 3.3-5.1 [facility] Comment on above: Hemolysis present, R esults could be affected. Potassium measurement (mass/ volume)Ordered By: Melissa Reed on 08-22-2024 Potassium (Unsp spec) [Mass/Vol] 4.1 mmol/L 3.3-5.1 [facility] Comment on above: Hemolysis present, R esults could be affected. Serum creatinine measurement (mass/volume)Ordered By: Melissa Reed on 08-22-2024 Creatinine [Mass/Vol] 1.14 mg/dL 0.70-1.20 [facility] Serum glucose measurement (m ass/volume)Ordered By: Melissa Reed on 08-22-2024 Glucose [Mass/Vol] 104 mg/dL High 70-99 [facility] Serum or plasma calcium danae urement (mass/volume)Ordered By: Melissa Reed on 08-22-2024 Calcium [Mass/Vol] 8.8 mg/dL 7.6-11.0 [facility] Serum or plasma urea nitroge n measurement (mass/volume)Ordered By: Melissa Reed on 08-22-2024 Urea nitrogen [Mass/Vol] 25 mg/dL High - [facility] Sodium levelOrdered By: Rubin Reed on 08-22-2024 Sodium [Moles/Vol] 138 mmol/L 133-145 [facility] Urine Cultureon 08-10-2024 [facility] Copy of report sent to Infection Control Printer [id number] 08/10/24 0702 CHARLEYBRITTNI. ESBL Escherichia coli Troutman Count 80,000-100,000 ESBL Escherichia coli: REACTION Ampicillin [...] S Tobramycin Islt LAVINIA <=1 S Normal [facility] Comment on above: Performed By: #### L 501.5200, L500.2500 #### [facility] [address] [place], [place], [id number] Basic Metabolic Profile (BMP )on 08-08-2024 BUN/CRE 27.6 RATIO High - [facility] Comment on above: Performed By: #### L 500.2500, L501.5200 #### [facility] [address] [place], [place], [id number] CA,Total 8.6 mg/dL Normal 8.5-10.1 [facility] Comment on above: Performed By: #### L 500.2500, L501.5200 #### [facility] [address] [place], [address] Chloride [Moles/Vol] 103 mmol/L Normal 98-107 [facility] Comment on above: Performed By: #### L 500.2500, L501.5200 #### [facility] [address] [place], [address] CO2 [Moles/Vol] 31.0 mmol/L Normal 21.0-32.0 [facility] Comment on above: Performed By: #### L 500.2500, L501.5200 #### [facility] [address] [place], [address] Creatinine [Mass/Vol] 1.23 mg/dL High 0.55-1.02 [facility] Comment on above: Result Comment: The validity of the calculated GFR GFRAA in patients over 70 years has not been determined. Clinical correlation is essential. Performed By: #### L 500.2500, L501.5200 #### [facility] [address] [place], [address] EST GFR - AA 54 mL/min Low >60 [facility] Comment on above: Result Comment: Afri can Afghan GFR Calc Performed By: #### L 500.2500, L501.5200 #### [facility] [address] [place], [address] GAP 4 Low 5-15 [facility] Comment on above: Performed By: #### L 500.2500, L501.5200 #### [facility] [address] [place], [address] GFR/1.73 sq M.predicted among non-blacks MDRD (S/P/Bld) [Vol rate/Area] 45 mL/min/{1.73_m2} Low >60 [facility] Comment on above: Result Comment: Non- GFR Calc Performed By: #### L 500.2500, L501.5200 #### [facility] [address] [place], [address] Glucose [Mass/Vol] 192 mg/dL High 74-106 [facility] Comment on above: Result Comment: Fast ing Glucose result greater than or equal to 126 mg/dL suggests DIABETES MELLITUS per A.D.A. criteria. Performed By: #### L 500.2500, L501.5200 #### [facility] [address] [place], [address] Potassium [Moles/Vol] 4.1 mmol/L Normal 3.5-5.1 [facility] Comment on above: Performed By: #### L 500.2500, L501.5200 #### [facility] [address] [place], [address] Sodium [Moles/Vol] 138 mmol/L Normal 136-145 [facility] Comment on above: Performed By: #### L 500.2500, L501.5200 #### [facility] [address] [place], [address] Urea nitrogen [Mass/Vol] 34 mg/dL High 7-18 [facility] Comment on above: Performed By: #### L 500.2500, L501.5200 #### [facility] [address] [place], [address] Blood urea nitrogen (BUN)/cr eatinine ratioOrdered By: Melissa Reed on 08-08-2024 Urea nitrogen/Creatinine [Mass ratio] 27.6 mg/mg High 10-20 [facility] Carbon dioxide measurementOr dered By: Melissa Reed on 08-08-2024 CO2 [Moles/Vol] 31.0 mmol/L 21.0-32.0 [facility] Chloride measurementOrdered By: Melissa Reed on 08-08-2024 Chloride [Moles/Vol] 103 mmol/L 98-107 [facility] Estimated glomerular filtrat ion rate (GFR) AmericanOrdered By: Melissa Reed on 08-08-2024 Estimated GFR (MDRD) Amer 54 mL/min Low >60 [facility] Comment on above: GFR Calc Glomerular filtration rate ( GFR) estimationOrdered By: Melissa Reed on 08-08-2024 Estimated GFR (MDRD) Non-Af Amer 45 mL/min Low >60 [facility] Comment on above: Non- GFR Calc GFR/1.73 sq M.predicted among non-blacks MDRD (S/P/Bld) [Vol rate/Area] 45 mL/min/{1.73_m2} Low >60 [facility] Comment on above: Non- GFR Calc Glucose measurementOrdered B y: Melissa Reed on 08-08-2024 Glucose [Mass/Vol] 192 mg/dL High 74-106 [facility] Comment on above: Fasting Glucose resu lt greater than or equal to 126 mg/dL suggests DIABETES MELLITUS per A.D.A. criteria. Magnesiumon 08-08-2024 Magnesium [Mass/Vol] 2.2 mg/dL Normal 1.6-2.6 [facility] Comment on above: Performed By: #### L 500.2500, L501.5200 #### [facility] [address] [place] [address]. [place], [address] Magnesium measurementOrdered By: Melissa Reed on 08-08-2024 Magnesium [Mass/Vol] 2.2 mg/dL 1.6-2.6 [facility] Potassium measurementOrdered By: Melissa Reed on 08-08-2024 Potassium [Moles/Vol] 4.1 mmol/L 3.5-5.1 [facility] Serum anion gap measurementO rdered By: Melissa Reed on 08-08-2024 Anion gap [Moles/Vol] 4 mmol/L Low 5-15 [facility] Serum or plasma calcium danae urement (mass/volume)Ordered By: Melissa Reed on 08-08-2024 Calcium [Mass/Vol] 8.6 mg/dL 8.5-10.1 [facility] Serum or plasma creatinine m easurement (mass/volume)Ordered By: Melissa Reed on 08-08-2024 Creatinine [Mass/Vol] 1.23 mg/dL High 0.55-1.02 [facility] Comment on above: The validity of the calculated GFR & GFRAA in patients over 70 years has not been determined. Clinical correlation is essential. Serum or plasma urea nitroge n measurement (mass/volume)Ordered By: Melissa Reed on 08-08-2024 Urea nitrogen [Mass/Vol] 34 mg/dL High 7-18 [facility] Sodium levelOrdered By: Rubin Reed on 08-08-2024 Sodium [Moles/Vol] 138 mmol/L 136-145 [facility] Urinalysis, Completeon 08-07 BACTERIA 4+ /hpf Normal None Seen [facility] Comment on above: Order Comment: 157 Performed By: #### L 501.5200, L500.2500 #### [facility] [address] [place], [address] EPI,SQUAMOUS 0-5 SEEN Normal 5-10 [facility] Comment on above: Order Comment: 157 Performed By: #### L 501.5200, L500.2500 #### [facility] [address] [place], [address] RBC 0-5 SEEN Normal 0-5 [facility] Comment on above: Order Comment: 157 Performed By: #### L 501.5200, L500.2500 #### [facility] [address] [place], [address] WBC 10-25 SEEN Normal 0-5 [facility] Comment on above: Order Comment: 157 Performed By: #### L 501.5200, L500.2500 #### [facility] [address] [place], [address] Mucus Ql (Urine sed) 0 SEEN Normal [facility] Comment on above: Order Comment: 157 Performed By: #### L 501.5200, L500.2500 #### [facility] [address] [place], [address] Bilirubin Test strip Ql (U)O rdered By: Melissa Reed on 08-06-2024 Bilirubin Ql (U) Negative Negative [facility] Epithelial cells.squamous LM Ql (Urine sed)Ordered By: Melissa Reed on 08-06-2024 Epithelial cells.squamous LM.HPF (Urine sed) [#/Area] 0 /[HPF] 5-10 [facility] Glucose Ql (U)Ordered By: Sd Reed on 08-06-2024 Urine Glucose (UA) Normal mg/dl Normal [facility] Ketones Test strip Ql (U)Ord ered By: Melissa Reed on 08-06-2024 Ketones Ql (U) Negative Negative [facility] Microscopic analysis of urin e for red blood cells (RBC)Ordered By: Melissa Reed on 08-06-2024 Microscopic analysis of urine for red blood cells (RBC) 0-5 SEEN /hpf 0-5 [facility] Urine RBC 0-5 SEEN /hpf 0-5 [facility] Mucus LM Ql (Urine sed)Order ed By: Melissa Reed on 08-06-2024 Mucus Ql (Urine sed) 0 SEEN /hpf [facility] Nitrite Test strip Ql (U)Ord ered By: Melissa Reed on 08-06-2024 Nitrite Ql (U) Positive High Negative [facility] Protein Test strip Ql (U)Ord ered By: Melissa Reed on 08-06-2024 Protein Ql (U) Negative Negative [facility] Squamous epithelial cells de tection in urine sediment by light microscopyOrdered By: Melissa Reed on 08-06-2024 Epithelial cells.squamous LM Ql (Urine sed) 0-5 SEEN /hpf 5-10 [facility] Urine blood detectionOrdered By: Melissa Reed on 08-06-2024 Urine Occult Blood Negative Negative [facility] Urine clarityOrdered By: Lillian Reed on 08-06-2024 Clarity (U) Cloudy Clear [facility] Urine color determinationOrd ered By: Melissa Reed on 08-06-2024 Color (U) Yellow Yellow [facility] Urine cultureOrdered By: Lillian Reed on 08-06-2024 Bacteria identified Cx Nom (U) ESBL Escherichia coli Abnormal [facility] Urine glucose detectionOrder ed By: Melissa Reed on 08-06-2024 Glucose Ql (U) Normal mg/dl Normal [facility] Urine leukocyte esterase det ection by dipstickOrdered By: Melissa Reed on 08-06-2024 Leukocyte esterase Test strip Ql (U) 500 /ul High Negative [facility] Urine pHOrdered By: Melissa Heaton udla on 08-06-2024 pH (U) 7.0 [pH] 5.0 - 8.0 [facility] Urine sediment bacteria coun t by microscopy (number/high power field)Ordered By: Melissa Reed on 08-06-2024 Bacteria LM.HPF (Urine sed) [#/Area] 4 /[HPF] None Seen [facility] Urine specific gravity measu rementOrdered By: Melissa Reed on 08-06-2024 Specific gravity (U) [Rel density] 1.010 1.002-1.030 [facility] Urine urobilinogen measureme ntOrdered By: Melissa Reed on 08-06-2024 Urobilinogen Ql (U) Normal mg/dl Normal [facility] Urobilinogen Ql (U)Ordered B y: Melissa Reed on 08-06-2024 Urine Urobilinogen Normal mg/dl Normal [facility] White blood cell countOrdere d By: Melissa Reed on 08-06-2024 Urine WBC 10-25 SEEN /hpf 0-5 [facility] White blood cell count 10-25 SEEN /hpf 0-5 [facility] Cerv Spine 2 or 3 Viewson Cerv Spine 2 or 3 Views [facility] [address] [place] [address] Cerv Spine 2 or 3 Views MR#: [id number] Acct: [id number] Name: RADHA SANDOVAL Rep #: [id number] : 1945 F 78 From: Abner Castrokenneth TENA PCP: Melissa Reed MD Status: REG CLI Study: Cerv Spine 2 or 3 Views Date of Exam: 07/31/24 Exam# [id number] Ordering Dr: Gypsy Argueta MD PROCEDURE: CERVICAL [...] Reversal of the cervical lordosis. Reading Location: [facility] CC: Dr. Gypsy Argueta MD; Melissa Reed MD Shipping Support Clerk: Signed Normal [facility] Shoulder min 2 Viewson 07-31 Shoulder min 2 Views [facility] Services [address] [place] [address] Shoulder min 2 Views MR#: [id number] Acct: [id number] Name: RADHA SANDOVAL Rep #: [id number] : 1945 F 78 From: Devendra Magallon PCP: Melissa Reed MD Status: REG CLI Study: Shoulder min 2 Views Date of Exam: 07/31/24 Exam# [id number] Ordering Dr: Gypsy Argueta MD PROCEDURE: Left [...] Dr. Gypsy Argueta MD; Melissa Reed MD Shipping Support Clerk: Signed Normal [facility] Shoulder min 2 Views [facility] Imaging Services [address] [facility] [place] [place] [address] Shoulder min 2 Views MR#: [id number] Acct: [id number] Name: RADHA SANDOVAL Rep #: [id number] : 1945 F 78 From: Devendra Magallon PCP: Melissa Reed MD Status: REG CLI Study: Shoulder min 2 Views Date of Exam: 07/31/24 Exam# [id number] Ordering Dr: Gypsy Argueta MD PROCEDURE: Right shoulder radiographs REASON FOR EXAM: Pain TECHNIQUE: Five views of the right shoulder COMPARISON: None. FINDINGS: See impression RAD/Shoulder min 2 Views IMPRESSION: Limited exam due to patient immobility. Negative for acute displaced fracture or dislocation. Probable severe glenohumeral joint osteoarthritis. Acromioclavicular joint is intact. Reading Location: [facility] CC: Dr. Gypsy Argueta MD; Melissa Reed MD Shipping Support Clerk: Signed Normal [facility] Basic Metabolic Profile (BMP )on 07-25-2024 BUN/CRE 26.7 RATIO High 10-20 [facility] Comment on above: Order Comment: 157 Performed By: #### L 500.2500, L501.5200 #### [facility] [address] [place], [address] CA,Total 9.1 mg/dL Normal 8.5-10.1 [facility] Comment on above: Order Comment: 157 Performed By: #### L 500.2500, L501.5200 #### [facility] [address] [facility] [place], [address] Chloride [Moles/Vol] 103 mmol/L Normal 98-107 [facility] Comment on above: Order Comment: 157 Performed By: #### L 500.2500, L501.5200 #### [facility] [address] [place], [address] CO2 [Moles/Vol] 31.0 mmol/L Normal 21.0-32.0 [facility] Comment on above: Order Comment: 157 Performed By: #### L 500.2500, L501.5200 #### [facility] [address] [place], [address] Creatinine [Mass/Vol] 0.97 mg/dL Normal 0.55-1.02 [facility] Comment on above: Order Comment: 157 Result Comment: The validity of the calculated GFR GFRAA in patients over 70 years has not been determined. Clinical correlation is essential. Performed By: #### L 500.2500, L501.5200 #### [facility] [address] [place], [address] EST GFR - AA 71 mL/min Normal >60 [facility] Comment on above: Order Comment: 157 Result Comment: Afri can Afghan GFR Calc Performed By: #### L 500.2500, L501.5200 #### [facility] [address] [place], [address] GAP 4 Low 5-15 [facility] Comment on above: Order Comment: 157 Performed By: #### L 500.2500, L501.5200 #### [facility] [address] [place], [address] GFR/1.73 sq M.predicted among non-blacks MDRD (S/P/Bld) [Vol rate/Area] 58 mL/min/{1.73_m2} Low >60 [facility] Comment on above: Order Comment: 157 Result Comment: Non- GFR Calc Performed By: #### L 500.2500, L501.5200 #### [facility] [address] [place], [address] Glucose [Mass/Vol] 120 mg/dL High 74-106 [facility] Comment on above: Order Comment: 157 Result Comment: Fast ing Glucose result from 100 to 125 mg/dL suggests IMPAIRED HOMEOSTASIS per A.D.A. criteria. Performed By: #### L 500.2500, L501.5200 #### [facility] [address] [place], [address] Potassium [Moles/Vol] 3.9 mmol/L Normal 3.5-5.1 [facility] Comment on above: Order Comment: 157 Performed By: #### L 500.2500, L501.5200 #### [facility] [address] [place], [address] Sodium [Moles/Vol] 138 mmol/L Normal 136-145 [facility] Comment on above: Order Comment: 157 Performed By: #### L 500.2500, L501.5200 #### [facility] [address] [place], [address] Urea nitrogen [Mass/Vol] 26 mg/dL High 7-18 [facility] Comment on above: Order Comment: 157 Performed By: #### L 500.2500, L501.5200 #### [facility] [address] [place], [address] Blood urea nitrogen (BUN)/cr eatinine ratioOrdered By: Melissa Reed on 07-25-2024 Urea nitrogen/Creatinine [Mass ratio] 26.7 mg/mg High 10-20 [facility] Carbon dioxide measurementOr dered By: Melissa Reed on 07-25-2024 CO2 [Moles/Vol] 31.0 mmol/L 21.0-32.0 [facility] Chloride measurementOrdered By: Melissa Reed on 07-25-2024 Chloride [Moles/Vol] 103 mmol/L 98-107 [facility] Estimated glomerular filtrat ion rate (GFR) AmericanOrdered By: Melissa Reed on 07-25-2024 Estimated GFR (MDRD) Amer 71 mL/min >60 [facility] Comment on above: GFR Calc Glomerular filtration rate ( GFR) estimationOrdered By: Melissa Reed on 07-25-2024 Estimated GFR (MDRD) Non-Af Amer 58 mL/min Low >60 [facility] Comment on above: Non- GFR Calc Glucose measurementOrdered B y: Melissa Reed on 07-25-2024 Glucose [Mass/Vol] 120 mg/dL High 74-106 [facility] Comment on above: Fasting Glucose resu lt from 100 to 125 mg/dL suggests IMPAIRED HOMEOSTASIS per A.D.A. criteria. Magnesiumon 07-25-2024 Magnesium [Mass/Vol] 2.2 mg/dL Normal 1.6-2.6 [facility] Comment on above: Order Comment: 157 Performed By: #### L 500.2500, L501.5200 #### [facility] [address] [place] [address]. [place], [address] Magnesium measurementOrdered By: Melissa Reed on 07-25-2024 Magnesium [Mass/Vol] 2.2 mg/dL 1.6-2.6 [facility] Potassium measurementOrdered By: Melissa Reed on 07-25-2024 Potassium [Moles/Vol] 3.9 mmol/L 3.5-5.1 [facility] Serum anion gap measurementO rdered By: Melissa Reed on 07-25-2024 Anion gap [Moles/Vol] 4 mmol/L Low 5-15 [facility] Serum or plasma calcium danae urement (mass/volume)Ordered By: Melissa Reed on 07-25-2024 Calcium [Mass/Vol] 9.1 mg/dL 8.5-10.1 [facility] Serum or plasma creatinine m easurement (mass/volume)Ordered By: Melissa Reed on 07-25-2024 Creatinine [Mass/Vol] 0.97 mg/dL 0.55-1.02 [facility] Comment on above: The validity of the calculated GFR & GFRAA in patients over 70 years has not been determined. Clinical correlation is essential. Serum or plasma urea nitroge n measurement (mass/volume)Ordered By: Melissa Reed on 07-25-2024 Urea nitrogen [Mass/Vol] 26 mg/dL High 7-18 [facility] Sodium levelOrdered By: Rubin Reed on 07-25-2024 Sodium [Moles/Vol] 138 mmol/L 136-145 [facility] Basic Metabolic Profile (BMP )on 07-11-2024 BUN/CRE 30.4 RATIO High 10-20 [facility] Comment on above: Order Comment: 157 Performed By: #### L 500.2500, L501.5200 #### [facility] [address] [place], [address] CA,Total 9.0 mg/dL Normal 8.5-10.1 [facility] Comment on above: Order Comment: 157 Performed By: #### L 500.2500, L501.5200 #### [facility] [address] [place], [address] Chloride [Moles/Vol] 103 mmol/L Normal 98-107 [facility] Comment on above: Order Comment: 157 Performed By: #### L 500.2500, L501.5200 #### [facility] [address] [place], [address] CO2 [Moles/Vol] 32.0 mmol/L Normal 21.0-32.0 [facility] Comment on above: Order Comment: 157 Performed By: #### L 500.2500, L501.5200 #### [facility] [address] [place], [address] Creatinine [Mass/Vol] 0.86 mg/dL Normal 0.55-1.02 [facility] Comment on above: Order Comment: 157 Result Comment: The validity of the calculated GFR GFRAA in patients over 70 years has not been determined. Clinical correlation is essential. Performed By: #### L 500.2500, L501.5200 #### [facility] [address] [place], [address] EST GFR - AA 82 mL/min Normal >60 [facility] Comment on above: Order Comment: 157 Result Comment: Afri can Afghan GFR Calc Performed By: #### L 500.2500, L501.5200 #### [facility] Laboratory [address] [place], [address] GAP 5 Normal 5-15 [facility] Comment on above: Order Comment: 157 Performed By: #### L 500.2500, L501.5200 #### [facility] Laboratory [address] [place], [address] GFR/1.73 sq M.predicted among non-blacks MDRD (S/P/Bld) [Vol rate/Area] 68 mL/min/{1.73_m2} Normal >60 [facility] Comment on above: Order Comment: 157 Result Comment: Non- GFR Calc Performed By: #### L 500.2500, L501.5200 #### [facility] Laboratory [address] [place], [address] Glucose [Mass/Vol] 109 mg/dL High 74-106 [facility] Comment on above: Order Comment: 157 Result Comment: Fast ing Glucose result from 100 to 125 mg/dL suggests IMPAIRED HOMEOSTASIS per A.D.A. criteria. Performed By: #### L 500.2500, L501.5200 #### [facility] Laboratory [address] [place], [address] Potassium [Moles/Vol] 4.1 mmol/L Normal 3.5-5.1 [facility] Comment on above: Order Comment: 157 Performed By: #### L 500.2500, L501.5200 #### [facility] Laboratory [address] [place], [address] Sodium [Moles/Vol] 140 mmol/L Normal 136-145 [facility] Comment on above: Order Comment: 157 Performed By: #### L 500.2500, L501.5200 #### [facility] Laboratory [address] [place], [address] Urea nitrogen [Mass/Vol] 26 mg/dL High 7-18 [facility] Comment on above: Order Comment: 157 Performed By: #### L 500.2500, L501.5200 #### [facility] [address] [place], [address] Blood urea nitrogen (BUN)/cr eatinine ratioOrdered By: Melissa Reed on 07-11-2024 Urea nitrogen/Creatinine [Mass ratio] 30.4 mg/mg High 10-20 [facility] Carbon dioxide measurementOr dered By: Melissa Reed on 07-11-2024 CO2 [Moles/Vol] 32.0 mmol/L 21.0-32.0 [facility] Chloride measurementOrdered By: Melissa Reed on 07-11-2024 Chloride [Moles/Vol] 103 mmol/L 98-107 [facility] Estimated glomerular filtrat ion rate (GFR) AmericanOrdered By: Melissa Reed on 07-11-2024 Estimated GFR (MDRD) Amer 82 mL/min >60 [facility] Comment on above: GFR Calc Glomerular filtration rate ( GFR) estimationOrdered By: Melissa Reed on 07-11-2024 Estimated GFR (MDRD) Non-Af Amer 68 mL/min >60 [facility] Comment on above: Non- GFR Calc Glucose measurementOrdered B y: Melissa Reed on 07-11-2024 Glucose [Mass/Vol] 109 mg/dL High 74-106 [facility] Comment on above: Fasting Glucose resu lt from 100 to 125 mg/dL suggests IMPAIRED HOMEOSTASIS per A.D.A. criteria. Magnesiumon 07-11-2024 Magnesium [Mass/Vol] 2.2 mg/dL Normal 1.6-2.6 [facility] Comment on above: Order Comment: 157 Performed By: #### L 500.2500, L501.5200 #### [facility] Laboratory [address] [place], [place], [id number] Magnesium measurementOrdered By: Melissa Reed on 07-11-2024 Magnesium [Mass/Vol] 2.2 mg/dL 1.6-2.6 [facility] Potassium measurementOrdered By: Melissa Reed on 07-11-2024 Potassium [Moles/Vol] 4.1 mmol/L 3.5-5.1 [facility] Serum anion gap measurementO rdered By: Melissa Reed on 07-11-2024 Anion gap [Moles/Vol] 5 mmol/L 5-15 [facility] Serum or plasma calcium danae urement (mass/volume)Ordered By: Melissa eRed on 07-11-2024 Calcium [Mass/Vol] 9.0 mg/dL 8.5-10.1 [facility] Serum or plasma creatinine m easurement (mass/volume)Ordered By: Melissa Reed on 07-11-2024 Creatinine [Mass/Vol] 0.86 mg/dL 0.55-1.02 [facility] Comment on above: The validity of the calculated GFR & GFRAA in patients over 70 years has not been determined. Clinical correlation is essential. Serum or plasma urea nitroge n measurement (mass/volume)Ordered By: Melissa Reed on 07-11-2024 Urea nitrogen [Mass/Vol] 26 mg/dL High 7-18 [facility] Sodium levelOrdered By: Rubin Reed on 07-11-2024 Sodium [Moles/Vol] 140 mmol/L 136-145 [facility] Basic Metabolic Profile (BMP )on 06-27-2024 BUN/CRE 23.7 RATIO High 10-20 [facility] Comment on above: Order Comment: 157 Performed By: #### L 500.2500, L501.5200 #### [facility] Laboratory [address] [place], [address] CA,Total 8.7 mg/dL Normal 8.5-10.1 [facility] Comment on above: Order Comment: 157 Performed By: #### L 500.2500, L501.5200 #### [facility] Laboratory [address] [place], [address] Chloride [Moles/Vol] 105 mmol/L Normal 98-107 [facility] Comment on above: Order Comment: 157 Performed By: #### L 500.2500, L501.5200 #### [facility] [address] [place], [address] CO2 [Moles/Vol] 31.0 mmol/L Normal 21.0-32.0 [facility] Comment on above: Order Comment: 157 Performed By: #### L 500.2500, L501.5200 #### [facility] [address] [place], [address] Creatinine [Mass/Vol] 1.18 mg/dL High 0.55-1.02 [facility] Comment on above: Order Comment: 157 Result Comment: The validity of the calculated GFR GFRAA in patients over 70 years has not been determined. Clinical correlation is essential. Performed By: #### L 500.2500, L501.5200 #### [facility] [address] [place], [address] EST GFR - AA 57 mL/min Low >60 [facility] Comment on above: Order Comment: 157 Result Comment: Afri can Afghan GFR Calc Performed By: #### L 500.2500, L501.5200 #### [facility] [address] [place], [address] GAP 4 Low 5-15 [facility] Comment on above: Order Comment: 157 Performed By: #### L 500.2500, L501.5200 #### [facility] [address] [place], [address] GFR/1.73 sq M.predicted among non-blacks MDRD (S/P/Bld) [Vol rate/Area] 47 mL/min/{1.73_m2} Low >60 [facility] Comment on above: Order Comment: 157 Result Comment: Non- GFR Calc Performed By: #### L 500.2500, L501.5200 #### [facility] [address] [place], [address] Glucose [Mass/Vol] 85 mg/dL Normal 74-106 [facility] Comment on above: Order Comment: 157 Performed By: #### L 500.2500, L501.5200 #### [facility] [address] [place], [address] Potassium [Moles/Vol] 3.8 mmol/L Normal 3.5-5.1 [facility] Comment on above: Order Comment: 157 Performed By: #### L 500.2500, L501.5200 #### [facility] [address] [place], [address] Sodium [Moles/Vol] 140 mmol/L Normal 136-145 [facility] Comment on above: Order Comment: 157 Performed By: #### L 500.2500, L501.5200 #### [facility] [address] [place], [address] Urea nitrogen [Mass/Vol] 28 mg/dL High 7-18 [facility] Comment on above: Order Comment: 157 Performed By: #### L 500.2500, L501.5200 #### [facility] [address] [place], [address] Blood urea nitrogen (BUN)/cr eatinine ratioOrdered By: Melissa Reed on 06-27-2024 Urea nitrogen/Creatinine [Mass ratio] 23.7 mg/mg High 10-20 [facility] Carbon dioxide measurementOr dered By: Melissa Reed on 06-27-2024 CO2 [Moles/Vol] 31.0 mmol/L 21.0-32.0 [facility] Chloride measurementOrdered By: Melissa Reed on 06-27-2024 Chloride [Moles/Vol] 105 mmol/L 98-107 [facility] Estimated glomerular filtrat ion rate (GFR) AmericanOrdered By: Melissa Reed on 06-27-2024 Estimated GFR (MDRD) Amer 57 mL/min Low >60 [facility] Comment on above: GFR Calc Glomerular filtration rate ( GFR) estimationOrdered By: Melissa Reed on 06-27-2024 Estimated GFR (MDRD) Non-Af Amer 47 mL/min Low >60 [facility] Comment on above: Non- GFR Calc Glucose measurementOrdered B y: Melissa Reed on 06-27-2024 Glucose [Mass/Vol] 85 mg/dL 74-106 [facility] Magnesiumon 06-27-2024 Magnesium [Mass/Vol] 2.2 mg/dL Normal 1.6-2.6 [facility] Comment on above: Order Comment: 157 Performed By: #### L 500.2500, L501.5200 #### [facility] [address] [place], [address] Magnesium measurementOrdered By: Melissa Reed on 06-27-2024 Magnesium [Mass/Vol] 2.2 mg/dL 1.6-2.6 [facility] Potassium measurementOrdered By: Melissa Reed on 06-27-2024 Potassium [Moles/Vol] 3.8 mmol/L 3.5-5.1 [facility] Serum anion gap measurementO rdered By: Melissa Reed on 06-27-2024 Anion gap [Moles/Vol] 4 mmol/L Low 5-15 [facility] Serum or plasma calcium danae urement (mass/volume)Ordered By: Melissa Reed on 06-27-2024 Calcium [Mass/Vol] 8.7 mg/dL 8.5-10.1 [facility] Serum or plasma creatinine m easurement (mass/volume)Ordered By: Melissa Reed on 06-27-2024 Creatinine [Mass/Vol] 1.18 mg/dL High 0.55-1.02 [facility] Comment on above: The validity of the calculated GFR & GFRAA in patients over 70 years has not been determined. Clinical correlation is essential. Serum or plasma urea nitroge n measurement (mass/volume)Ordered By: Melissa Reed on 06-27-2024 Urea nitrogen [Mass/Vol] 28 mg/dL High 7-18 [facility] Sodium levelOrdered By: Ryleyremedios Reed on 06-27-2024 Sodium [Moles/Vol] 140 mmol/L 136-145 [facility] Basic Metabolic Profile (BMP )on 06-13-2024 BUN/CRE 32.6 RATIO High 10-20 [facility] Comment on above: Performed By: #### L 501.5200, L500.2500 #### [facility] [address] [place], [address] CA,Total 8.7 mg/dL Normal 8.5-10.1 [facility] Comment on above: Performed By: #### L 501.5200, L500.2500 #### [facility] [address] [place], [address] Chloride [Moles/Vol] 105 mmol/L Normal 98-107 [facility] Comment on above: Performed By: #### L 501.5200, L500.2500 #### [facility] [address] [place], [address] CO2 [Moles/Vol] 28.0 mmol/L Normal 21.0-32.0 [facility] Comment on above: Performed By: #### L 501.5200, L500.2500 #### [facility] [address] [place], [address] Creatinine [Mass/Vol] 0.98 mg/dL Normal 0.55-1.02 [facility] Comment on above: Result Comment: The validity of the calculated GFR GFRAA in patients over 70 years has not been determined. Clinical correlation is essential. Performed By: #### L 501.5200, L500.2500 #### [facility] [address] [place], [address] EST GFR - AA 70 mL/min Normal >60 [facility] Comment on above: Result Comment: Afri can Afghan GFR Calc Performed By: #### L 501.5200, L500.2500 #### [facility] [address] [place], [address] GAP 5 Normal 5-15 [facility] Comment on above: Performed By: #### L 501.5200, L500.2500 #### [facility] [address] [place], [address] GFR/1.73 sq M.predicted among non-blacks MDRD (S/P/Bld) [Vol rate/Area] 58 mL/min/{1.73_m2} Low >60 [facility] Comment on above: Result Comment: Non- GFR Calc Performed By: #### L 501.5200, L500.2500 #### [facility] [address] [place], [address] Glucose [Mass/Vol] 161 mg/dL High 74-106 [facility] Comment on above: Result Comment: Fast ing Glucose result greater than or equal to 126 mg/dL suggests DIABETES MELLITUS per A.D.A. criteria. Performed By: #### L 501.5200, L500.2500 #### [facility] [address] [place], [address] Potassium [Moles/Vol] 3.8 mmol/L Normal 3.5-5.1 [facility] Comment on above: Result Comment: Slig ht Hemolysis, Result may be falsely increased. Performed By: #### L 501.5200, L500.2500 #### [facility] [address] [place], [address] Sodium [Moles/Vol] 138 mmol/L Normal 136-145 [facility] Comment on above: Performed By: #### L 501.5200, L500.2500 #### [facility] [address] [place], [address] Urea nitrogen [Mass/Vol] 32 mg/dL High 7-18 [facility] Comment on above: Performed By: #### L 501.5200, L500.2500 #### [facility] [address] [place], [place], [address] Blood urea nitrogen (BUN)/cr eatinine ratioOrdered By: Melissa Reed on 06-13-2024 Urea nitrogen/Creatinine [Mass ratio] 32.6 mg/mg High 10-20 [facility] Carbon dioxide measurementOr dered By: Melissa Reed on 06-13-2024 CO2 [Moles/Vol] 28.0 mmol/L 21.0-32.0 [facility] Chloride measurementOrdered By: Melissa Reed on 06-13-2024 Chloride [Moles/Vol] 105 mmol/L 98-107 [facility] Estimated glomerular filtrat ion rate (GFR) AmericanOrdered By: Melissa Reed on 06-13-2024 Estimated GFR (MDRD) Amer 70 mL/min >60 [facility] Comment on above: GFR Calc Glomerular filtration rate ( GFR) estimationOrdered By: Melissa Reed on 06-13-2024 Estimated GFR (MDRD) Non-Af Amer 58 mL/min Low >60 [facility] Comment on above: Non- GFR Calc Glucose measurementOrdered B y: Melissa Rede on 06-13-2024 Glucose [Mass/Vol] 161 mg/dL High 74-106 [facility] Comment on above: Fasting Glucose resu lt greater than or equal to 126 mg/dL suggests DIABETES MELLITUS per A.D.A. criteria. Magnesiumon 06-13-2024 Magnesium [Mass/Vol] 2.2 mg/dL Normal 1.6-2.6 [facility] Comment on above: Result Comment: Slig ht Hemolysis, Result may be falsely increased. Performed By: #### L 501.5200, L500.2500 #### [facility] [address] [place], [place], [address] Magnesium measurementOrdered By: Melissa Reed on 06-13-2024 Magnesium [Mass/Vol] 2.2 mg/dL 1.6-2.6 [facility] Comment on above: Slight Hemolysis, Re sult may be falsely increased. Potassium measurementOrdered By: Melissa Reed on 06-13-2024 Potassium [Moles/Vol] 3.8 mmol/L 3.5-5.1 [facility] Comment on above: Slight Hemolysis, Re sult may be falsely increased. Serum anion gap measurementO rdered By: Melissa Reed on 06-13-2024 Anion gap [Moles/Vol] 5 mmol/L 5-15 [facility] Serum or plasma calcium danae urement (mass/volume)Ordered By: Melissa Reed on 06-13-2024 Calcium [Mass/Vol] 8.7 mg/dL 8.5-10.1 [facility] Serum or plasma creatinine m easurement (mass/volume)Ordered By: Melissa Reed on 06-13-2024 Creatinine [Mass/Vol] 0.98 mg/dL 0.55-1.02 [facility] Comment on above: The validity of the calculated GFR & GFRAA in patients over 70 years has not been determined. Clinical correlation is essential. Serum or plasma urea nitroge n measurement (mass/volume)Ordered By: Melissa Reed on 06-13-2024 Urea nitrogen [Mass/Vol] 32 mg/dL High -18 [facility] Sodium levelOrdered By: Rubin Reed on 06-13-2024 Sodium [Moles/Vol] 138 mmol/L 136-145 [facility] Basic Metabolic Profile (BMP )on 05-29-2024 BUN/CRE 22.1 RATIO High 10-20 [facility] Comment on above: Order Comment: 157 Performed By: #### L 501.5200, L500.2500 #### [facility] [address] [place], [address] CA,Total 8.9 mg/dL Normal 8.5-10.1 [facility] Comment on above: Order Comment: 157 Performed By: #### L 501.5200, L500.2500 #### [facility] [address] [place], [address] Chloride [Moles/Vol] 106 mmol/L Normal 98-107 [facility] Comment on above: Order Comment: 157 Performed By: #### L 501.5200, L500.2500 #### [facility] [address] [place], [address] CO2 [Moles/Vol] 32.0 mmol/L Normal 21.0-32.0 [facility] Comment on above: Order Comment: 157 Performed By: #### L 501.5200, L500.2500 #### [facility] [address] [place], [address] Creatinine [Mass/Vol] 1.31 mg/dL High 0.55-1.02 [facility] Comment on above: Order Comment: 157 Result Comment: The validity of the calculated GFR GFRAA in patients over 70 years has not been determined. Clinical correlation is essential. Performed By: #### L 501.5200, L500.2500 #### [facility] [address] [place], [address] EST GFR - AA 50 mL/min Low >60 [facility] Comment on above: Order Comment: 157 Result Comment: Afri can Afghan GFR Calc Performed By: #### L 501.5200, L500.2500 #### [facility] [address] [place], [address] GAP 5 Normal 5-15 [facility] Comment on above: Order Comment: 157 Performed By: #### L 501.5200, L500.2500 #### [facility] [address] [place], [address] GFR/1.73 sq M.predicted among non-blacks MDRD (S/P/Bld) [Vol rate/Area] 41 mL/min/{1.73_m2} Low >60 [facility] Comment on above: Order Comment: 157 Result Comment: Non- GFR Calc Performed By: #### L 501.5200, L500.2500 #### [facility] [address] [place], [address] Glucose [Mass/Vol] 116 mg/dL High 74-106 [facility] Comment on above: Order Comment: 157 Result Comment: Fast ing Glucose result from 100 to 125 mg/dL suggests IMPAIRED HOMEOSTASIS per A.D.A. criteria. Performed By: #### L 501.5200, L500.2500 #### [facility] [address] [place], [address] Potassium [Moles/Vol] 3.6 mmol/L Normal 3.5-5.1 [facility] Comment on above: Order Comment: 157 Performed By: #### L 501.5200, L500.2500 #### [facility] [address] [place], [address] Sodium [Moles/Vol] 142 mmol/L Normal 136-145 [facility] Comment on above: Order Comment: 157 Performed By: #### L 501.5200, L500.2500 #### [facility] [address] [place], [address] Urea nitrogen [Mass/Vol] 29 mg/dL High 7-18 [facility] Comment on above: Order Comment: 157 Performed By: #### L 501.5200, L500.2500 #### [facility] [address] [place], [address] Blood urea nitrogen (BUN)/cr eatinine ratioOrdered By: Melissa Reed on 05-29-2024 Urea nitrogen/Creatinine [Mass ratio] 22.1 mg/mg High 10-20 [facility] Carbon dioxide measurementOr dered By: Melissa Reed on 05-29-2024 CO2 [Moles/Vol] 32.0 mmol/L 21.0-32.0 [facility] Chloride measurementOrdered By: Melissa Reed on 05-29-2024 Chloride [Moles/Vol] 106 mmol/L 98-107 [facility] Estimated glomerular filtrat ion rate (GFR) AmericanOrdered By: Melissa Reed on 05-29-2024 Estimated GFR (MDRD) Amer 50 mL/min Low >60 [facility] Comment on above: GFR Calc Glomerular filtration rate ( GFR) estimationOrdered By: Melissa Reed on 05-29-2024 Estimated GFR (MDRD) Non-Af Amer 41 mL/min Low >60 [facility] Comment on above: Non- GFR Calc Glucose measurementOrdered B y: Melissa Reed on 05-29-2024 Glucose [Mass/Vol] 116 mg/dL High 74-106 [facility] Comment on above: Fasting Glucose resu lt from 100 to 125 mg/dL suggests IMPAIRED HOMEOSTASIS per A.D.A. criteria. Magnesiumon 05-29-2024 Magnesium [Mass/Vol] 2.0 mg/dL Normal 1.6-2.6 [facility] Comment on above: Order Comment: 157 Performed By: #### L 501.5200, L500.2500 #### [facility] [address] [place] [address]. [place], [address] Magnesium measurementOrdered By: Melissa Reed on 05-29-2024 Magnesium [Mass/Vol] 2.0 mg/dL 1.6-2.6 [facility] Potassium measurementOrdered By: Melissa Reed on 05-29-2024 Potassium [Moles/Vol] 3.6 mmol/L 3.5-5.1 [facility] Serum anion gap measurementO rdered By: Melissa Reed on 05-29-2024 Anion gap [Moles/Vol] 5 mmol/L 5-15 [facility] Serum or plasma calcium danae urement (mass/volume)Ordered By: Melissa Reed on 05-29-2024 Calcium [Mass/Vol] 8.9 mg/dL 8.5-10.1 [facility] Serum or plasma creatinine m easurement (mass/volume)Ordered By: Melissa Reed on 05-29-2024 Creatinine [Mass/Vol] 1.31 mg/dL High 0.55-1.02 [facility] Comment on above: The validity of the calculated GFR & GFRAA in patients over 70 years has not been determined. Clinical correlation is essential. Serum or plasma urea nitroge n measurement (mass/volume)Ordered By: Melissa Reed on 05-29-2024 Urea nitrogen [Mass/Vol] 29 mg/dL High 7-18 [facility] Sodium levelOrdered By: Rubin Reed on 05-29-2024 Sodium [Moles/Vol] 142 mmol/L 136-145 [facility] Basic Metabolic Profile (BMP )on 05-15-2024 BUN/CRE 31.1 RATIO High 10-20 [facility] Comment on above: Order Comment: 157 Performed By: #### L 501.5200, L500.2500 #### [facility] [address] [place], [address] CA,Total 8.7 mg/dL Normal 8.5-10.1 [facility] Comment on above: Order Comment: 157 Performed By: #### L 501.5200, L500.2500 #### [facility] [address] [place], [address] Chloride [Moles/Vol] 105 mmol/L Normal 98-107 [facility] Comment on above: Order Comment: 157 Performed By: #### L 501.5200, L500.2500 #### [facility] [address] [place], [address] CO2 [Moles/Vol] 30.0 mmol/L Normal 21.0-32.0 [facility] Comment on above: Order Comment: 157 Performed By: #### L 501.5200, L500.2500 #### [facility] [address] [place], [address] Creatinine [Mass/Vol] 1.06 mg/dL High 0.55-1.02 [facility] Comment on above: Order Comment: 157 Result Comment: The validity of the calculated GFR GFRAA in patients over 70 years has not been determined. Clinical correlation is essential. Performed By: #### L 501.5200, L500.2500 #### [facility] [address] [place], [address] EST GFR - AA 64 mL/min Normal >60 [facility] Comment on above: Order Comment: 157 Result Comment: Afri can Afghan GFR Calc Performed By: #### L 501.5200, L500.2500 #### [facility] [address] [place], [address] GAP 5 Normal 5-15 [facility] Comment on above: Order Comment: 157 Performed By: #### L 501.5200, L500.2500 #### [facility] [address] [place], [address] GFR/1.73 sq M.predicted among non-blacks MDRD (S/P/Bld) [Vol rate/Area] 53 mL/min/{1.73_m2} Low >60 [facility] Comment on above: Order Comment: 157 Result Comment: Non- GFR Calc Performed By: #### L 501.5200, L500.2500 #### [facility] [address] [place], [address] Glucose [Mass/Vol] 119 mg/dL High 74-106 [facility] Comment on above: Order Comment: 157 Result Comment: Fast ing Glucose result from 100 to 125 mg/dL suggests IMPAIRED HOMEOSTASIS per A.D.A. criteria. Performed By: #### L 501.5200, L500.2500 #### [facility] [facility] [address] [place], [address] Potassium [Moles/Vol] 3.6 mmol/L Normal 3.5-5.1 [facility] Comment on above: Order Comment: 157 Performed By: #### L 501.5200, L500.2500 #### [facility] [address] [place], [address] Sodium [Moles/Vol] 140 mmol/L Normal 136-145 [facility] Comment on above: Order Comment: 157 Performed By: #### L 501.5200, L500.2500 #### [facility] [address] [place], [address] Urea nitrogen [Mass/Vol] 33 mg/dL High 7-18 [facility] Comment on above: Order Comment: 157 Performed By: #### L 501.5200, L500.2500 #### [facility] [address] [place], [address] Magnesiumon 05-15-2024 Magnesium [Mass/Vol] 2.1 mg/dL Normal 1.6-2.6 [facility] Comment on above: Order Comment: 157 Performed By: #### L 501.5200, L500.2500 #### [facility] [address] [place], [address] Basic Metabolic Profile (BMP )on 05-01-2024 BUN/CRE 21.4 RATIO High 10-20 [facility] Comment on above: Order Comment: 157 Performed By: #### M 100.2200, L400.0001 #### [facility] [address] [place], [address] CA,Total 9.2 mg/dL Normal 8.5-10.1 [facility] Comment on above: Order Comment: 157 Performed By: #### M 100.2200, L400.0001 #### [facility] [address] [place], [address] Chloride [Moles/Vol] 106 mmol/L Normal 98-107 [facility] Comment on above: Order Comment: 157 Performed By: #### M 100.2200, L400.0001 #### [facility] [address] [place], [address] CO2 [Moles/Vol] 27.0 mmol/L Normal 21.0-32.0 [facility] Comment on above: Order Comment: 157 Performed By: #### M 100.2200, L400.0001 #### [facility] [address] [place], [address] Creatinine [Mass/Vol] 1.26 mg/dL High 0.55-1.02 [facility] Comment on above: Order Comment: 157 Result Comment: The validity of the calculated GFR GFRAA in patients over 70 years has not been determined. Clinical correlation is essential. Performed By: #### M 100.2200, L400.0001 #### [facility] [address] [place], [address] EST GFR - AA 53 mL/min Low >60 [facility] Comment on above: Order Comment: 157 Result Comment: Afri can Afghan GFR Calc Performed By: #### M 100.2200, L400.0001 #### [facility] [address] [place], [address] GAP 7 Normal 5-15 [facility] Comment on above: Order Comment: 157 Performed By: #### M 100.2200, L400.0001 #### [facility] [address] [place], [address] GFR/1.73 sq M.predicted among non-blacks MDRD (S/P/Bld) [Vol rate/Area] 43 mL/min/{1.73_m2} Low >60 [facility] Comment on above: Order Comment: 157 Result Comment: Non- GFR Calc Performed By: #### M 100.2200, L400.0001 #### [facility] [address] [place], [address] Glucose [Mass/Vol] 126 mg/dL High 74-106 [facility] Comment on above: Order Comment: 157 Result Comment: Fast ing Glucose result greater than or equal to 126 mg/dL suggests DIABETES MELLITUS per A.D.A. criteria. Performed By: #### M 100.2200, L400.0001 #### [facility] [address] [place], [address] Potassium [Moles/Vol] 4.3 mmol/L Normal 3.5-5.1 [facility] Comment on above: Order Comment: 157 Performed By: #### M 100.2200, L400.0001 #### [facility] [address] [place], [address] Sodium [Moles/Vol] 140 mmol/L Normal 136-145 [facility] Comment on above: Order Comment: 157 Performed By: #### M 100.2200, L400.0001 #### [facility] [address] [place], [address] Urea nitrogen [Mass/Vol] 27 mg/dL High 01-03 [facility] Comment on above: Order Comment: 157 Performed By: #### M 100.2200, L400.0001 #### [facility] [address] [place], [address] Magnesiumon 05-01-2024 Magnesium [Mass/Vol] 2.1 mg/dL Normal 1.6-2.6 [facility] Comment on above: Order Comment: 157 Performed By: #### M 100.2200, L400.0001 #### [facility] [address] [place], [address] Basic Metabolic Profile (BMP )on 04-17-2024 BUN/CRE 20.4 RATIO High 04-07 [facility] Comment on above: Order Comment: 157 Performed By: #### L 500.2500, L501.5200 #### [facility] [address] [place], [address] CA,Total 8.6 mg/dL Normal 8.5-10.1 [facility] Comment on above: Order Comment: 157 Performed By: #### L 500.2500, L501.5200 #### [facility] [address] [place], [address] Chloride [Moles/Vol] 105 mmol/L Normal 98-107 [facility] Comment on above: Order Comment: 157 Performed By: #### L 500.2500, L501.5200 #### [facility] [address] [place], [address] CO2 [Moles/Vol] 31.0 mmol/L Normal 21.0-32.0 [facility] Comment on above: Order Comment: 157 Performed By: #### L 500.2500, L501.5200 #### [facility] [address] [place], [address] Creatinine [Mass/Vol] 1.03 mg/dL High 0.55-1.02 [facility] Comment on above: Order Comment: 157 Result Comment: The validity of the calculated GFR GFRAA in patients over 70 years has not been determined. Clinical correlation is essential. Performed By: #### L 500.2500, L501.5200 #### [facility] [address] [place], [address] EST GFR - AA 66 mL/min Normal >60 [facility] Comment on above: Order Comment: 157 Result Comment: Afri can Afghan GFR Calc Performed By: #### L 500.2500, L501.5200 #### [facility] [address] [place], [address] GAP 3 Low 5-15 [facility] Comment on above: Order Comment: 157 Performed By: #### L 500.2500, L501.5200 #### [facility] [address] [place], [address] GFR/1.73 sq M.predicted among non-blacks MDRD (S/P/Bld) [Vol rate/Area] 55 mL/min/{1.73_m2} Low >60 [facility] Comment on above: Order Comment: 157 Result Comment: Non- GFR Calc Performed By: #### L 500.2500, L501.5200 #### [facility] [address] [place], [address] Glucose [Mass/Vol] 172 mg/dL High 74-106 [facility] Comment on above: Order Comment: 157 Result Comment: Fast ing Glucose result greater than or equal to 126 mg/dL suggests DIABETES MELLITUS per A.D.A. criteria. Performed By: #### L 500.2500, L501.5200 #### [facility] [address] [place], [address] Potassium [Moles/Vol] 3.6 mmol/L Normal 3.5-5.1 [facility] Comment on above: Order Comment: 157 Performed By: #### L 500.2500, L501.5200 #### [facility] [address] [place], [address] Sodium [Moles/Vol] 140 mmol/L Normal 136-145 [facility] Comment on above: Order Comment: 157 Performed By: #### L 500.2500, L501.5200 #### [facility] [address] [place], [address] Urea nitrogen [Mass/Vol] 21 mg/dL High 7-18 [facility] Comment on above: Order Comment: 157 Performed By: #### L 500.2500, L501.5200 #### [facility] [address] [place], [address] Magnesiumon 04-17-2024 Magnesium [Mass/Vol] 2.3 mg/dL Normal 1.6-2.6 [facility] Comment on above: Performed By: #### L 500.2500, L501.5200 #### [facility] [address] [place], [address] L3300.0940on 04-06-2024 VIT D,25 HYDROX Normal [facility] Comment on above: Order Comment: 157 Result Comment: TEST RESULTS LIMITS Vitamin D, 25-Hydroxy 32.0 ng/mL 30.0-100.0 Vitamin D deficiency has been defined by the [place] [employer] and an Endocrine Society practice guideline as a level of serum 25-OH vitamin D less than 20 ng/mL (1,2). The Endocrine Society went on to further define vitamin D insufficiency as a level between 21 and 29 ng/mL (2). 1. IOM ([place] [employer]). 2010. Dietary reference intakes for calcium and D. [place]: The National Academies Press. 2. Josias MF, Eddie NC, Patrick RODRIGUEZ, et al. Evaluation, treatment, and prevention of vitamin D deficiency: an Endocrine Society clinical practice guideline. JCEM. 2010; 96(7):1911-30. TESTING PERFORMED AT [facility]. ORIGINAL REPORT ON FILE IN LAB CONTAINS ADDITIONAL TEST SITE INFORMATION. Performed By: #### L 501.5200, L500.2500 #### [facility] [address] [place], [address] Basic Metabolic Profile (BMP )on 04-04-2024 BUN/CRE 23.3 RATIO High 04-07 [facility] Comment on above: Order Comment: CLEAN CATCH Performed By: #### M 100.2200, L400.0001 #### [facility] [address] [place], [address] CA,Total 9.4 mg/dL Normal 8.5-10.1 [facility] Comment on above: Order Comment: CLEAN CATCH Performed By: #### M 100.2200, L400.0001 #### [facility] [address] [place], [address] Chloride [Moles/Vol] 103 mmol/L Normal 98-107 [facility] Comment on above: Order Comment: CLEAN CATCH Performed By: #### M 100.2200, L400.0001 #### [facility] [address] [place], [address] CO2 [Moles/Vol] 33.0 mmol/L High 21.0-32.0 [facility] Comment on above: Order Comment: CLEAN CATCH Performed By: #### M 100.2200, L400.0001 #### [facility] [address] [place], [address] Creatinine [Mass/Vol] 1.20 mg/dL High 0.55-1.02 [facility] Comment on above: Order Comment: CLEAN CATCH Result Comment: The validity of the calculated GFR GFRAA in patients over 70 years has not been determined. Clinical correlation is essential. Performed By: #### M 100.2200, L400.0001 #### [facility] [address] [place], [address] EST GFR - AA 56 mL/min Low >60 [facility] Comment on above: Order Comment: CLEAN CATCH Result Comment: Afri can Afghan GFR Calc Performed By: #### M 100.2200, L400.0001 #### [facility] [address] [place], [address] GAP 4 Low 5-15 [facility] Comment on above: Order Comment: CLEAN CATCH Performed By: #### M 100.2200, L400.0001 #### [facility] [address] [place], [address] GFR/1.73 sq M.predicted among non-blacks MDRD (S/P/Bld) [Vol rate/Area] 46 mL/min/{1.73_m2} Low >60 [facility] Comment on above: Order Comment: CLEAN CATCH Result Comment: Non- GFR Calc Performed By: #### M 100.2200, L400.0001 #### [facility] [address] [place], [address] Glucose [Mass/Vol] 120 mg/dL High 74-106 [facility] Comment on above: Order Comment: CLEAN CATCH Result Comment: Fast ing Glucose result from 100 to 125 mg/dL suggests IMPAIRED HOMEOSTASIS per A.D.A. criteria. Performed By: #### M 100.2200, L400.0001 #### [facility] [address] [place], [address] Potassium [Moles/Vol] 4.1 mmol/L Normal 3.5-5.1 [facility] Comment on above: Order Comment: CLEAN CATCH Performed By: #### M 100.2200, L400.0001 #### [facility] [address] [place], [address] Sodium [Moles/Vol] 140 mmol/L Normal 136-145 [facility] Comment on above: Order Comment: CLEAN CATCH Performed By: #### M 100.2200, L400.0001 #### [facility] [address] [place], [address] Urea nitrogen [Mass/Vol] 28 mg/dL High 7-18 [facility] Comment on above: Order Comment: CLEAN CATCH Performed By: #### M 100.2200, L400.0001 #### [facility] [address] [place], [address] Magnesiumon 04-04-2024 Magnesium [Mass/Vol] 2.1 mg/dL Normal 1.6-2.6 [facility] Comment on above: Order Comment: CLEAN CATCH Performed By: #### M 100.2200, L400.0001 #### [facility] [address] [place], [address] Basic Metabolic Profile (BMP )on 04-03-2024 BUN Normal 7-18 [facility] Comment on above: Order Comment: 157 Result Comment: UTO TOLD NURSE Performed By: #### L 500.2500, L501.5200 #### [facility] [address] [place], [address] BUN/CRE Normal 10-20 [facility] Comment on above: Order Comment: 157 Result Comment: UTO TOLD NURSE Performed By: #### L 500.2500, L501.5200 #### [facility] [address] [place], [address] CA,Total Normal 8.5-10.1 [facility] Comment on above: Order Comment: 157 Result Comment: UTO TOLD NURSE Performed By: #### L 500.2500, L501.5200 #### [facility] [address] [place], [address] CL Normal 98-107 [facility] Comment on above: Order Comment: 157 Result Comment: UTO TOLD NURSE Performed By: #### L 500.2500, L501.5200 #### [facility] [address] [place], [address] CO2 Normal 21.0-32.0 [facility] Comment on above: Order Comment: 157 Result Comment: UTO TOLD NURSE Performed By: #### L 500.2500, L501.5200 #### [facility] [address] [place], [address] CREAT,SERUM Normal 0.55-1.02 [facility] Comment on above: Order Comment: 157 Result Comment: UTO TOLD NURSE Performed By: #### L 500.2500, L501.5200 #### [facility] [address] [place], [address] EST GFR Normal >60 [facility] Comment on above: Order Comment: 157 Result Comment: UTO TOLD NURSE Performed By: #### L 500.2500, L501.5200 #### [facility] [address] [place], [address] EST GFR - AA Normal >60 [facility] Comment on above: Order Comment: 157 Result Comment: UTO TOLD NURSE Performed By: #### L 500.2500, L501.5200 #### [facility] [address] [place], [address] GAP Normal 5-15 [facility] Comment on above: Order Comment: 157 Result Comment: UTO TOLD NURSE Performed By: #### L 500.2500, L501.5200 #### [facility] [address] [place], [address] GLU Normal 74-106 [facility] Comment on above: Order Comment: 157 Result Comment: UTO TOLD NURSE Performed By: #### L 500.2500, L501.5200 #### [facility] [address] [place], [address] Potassium Normal 3.5-5.1 [facility] Comment on above: Order Comment: 157 Result Comment: UTO TOLD NURSE Performed By: #### L 500.2500, L501.5200 #### [facility] [address] [place], [address] Basic Metabolic Profile (BMP) Normal 136-145 [facility] Comment on above: Order Comment: 157 Result Comment: UTO TOLD NURSE Performed By: #### L 500.2500, L501.5200 #### [facility] [address] [place], [address] Hemoglobin A1con 04-01-2024 HbA1c (Bld) [Mass fraction] 6.2 % High 3.8-5.6 [facility] Comment on above: Order Comment: 157 Result Comment: Norm al < 5.7 % Prediabetic 5.7 - 6.4 % Diabetic >or= 6.5 % Please note range changes. Performed By: #### L 501.5200, L500.2500 #### [facility] [address] [place], [address] Thyroid Stim Hormone (TSH)on 04-01-2024 TSH 2.980 uIU/mL Normal 0.358-3.740 [facility] Comment on above: Order Comment: 157 Performed By: #### L 501.5200, L500.2500 #### [facility] [address] [place], [address] Basic Metabolic Profile (BMP )on 03-20-2024 BUN/CRE 20.4 RATIO High 10-20 [facility] Comment on above: Order Comment: 157 Performed By: #### L 500.2500, L501.5200 #### [facility] [address] [place], [address] CA,Total 8.8 mg/dL Normal 8.5-10.1 [facility] Comment on above: Order Comment: 157 Performed By: #### L 500.2500, L501.5200 #### [facility] [address] [place], [address] Chloride [Moles/Vol] 104 mmol/L Normal 98-107 [facility] Comment on above: Order Comment: 157 Performed By: #### L 500.2500, L501.5200 #### [facility] [address] [place], [address] CO2 [Moles/Vol] 27.0 mmol/L Normal 21.0-32.0 [facility] Comment on above: Order Comment: 157 Performed By: #### L 500.2500, L501.5200 #### [facility] [address] [place], [address] Creatinine [Mass/Vol] 0.98 mg/dL Normal 0.55-1.02 [facility] Comment on above: Order Comment: 157 Result Comment: The validity of the calculated GFR GFRAA in patients over 70 years has not been determined. Clinical correlation is essential. Performed By: #### L 500.2500, L501.5200 #### [facility] [address] [place], [address] EST GFR - AA 70 mL/min Normal >60 [facility] Comment on above: Order Comment: 157 Result Comment: Afri can Afghan GFR Calc Performed By: #### L 500.2500, L501.5200 #### [facility] [address] [place], [address] GAP 4 Low 5-15 [facility] Comment on above: Order Comment: 157 Performed By: #### L 500.2500, L501.5200 #### [facility] [address] [place], [address] GFR/1.73 sq M.predicted among non-blacks MDRD (S/P/Bld) [Vol rate/Area] 58 mL/min/{1.73_m2} Low >60 [facility] Comment on above: Order Comment: 157 Result Comment: Non- GFR Calc Performed By: #### L 500.2500, L501.5200 #### [facility] [address] [place], [address] Glucose [Mass/Vol] 102 mg/dL Normal 74-106 [facility] Comment on above: Order Comment: 157 Result Comment: Fast ing Glucose result from 100 to 125 mg/dL suggests IMPAIRED HOMEOSTASIS per A.D.A. criteria. Performed By: #### L 500.2500, L501.5200 #### [facility] [address] [place], [address] Potassium [Moles/Vol] 4.2 mmol/L Normal 3.5-5.1 [facility] Comment on above: Order Comment: 157 Result Comment: Mode rate Hemolysis, Result may be falsely increased. Performed By: #### L 500.2500, L501.5200 #### [facility] [address] [place], [address] Sodium [Moles/Vol] 135 mmol/L Low 136-145 [facility] Comment on above: Order Comment: 157 Performed By: #### L 500.2500, L501.5200 #### [facility] [address] [place], [address] Urea nitrogen [Mass/Vol] 20 mg/dL High -18 [facility] Comment on above: Order Comment: 157 Performed By: #### L 500.2500, L501.5200 #### [facility] [address] [place], [address] Magnesiumon 03-20-2024 Magnesium [Mass/Vol] 2.2 mg/dL Normal 1.6-2.6 [facility] Comment on above: Order Comment: 157 Result Comment: Mode rate Hemolysis, Result may be falsely increased. Performed By: #### L 500.2500, L501.5200 #### [facility] [address] [place], [address] Basic Metabolic Profile (BMP )on 03-06-2024 BUN/CRE 25.2 RATIO High 10- [facility] Comment on above: Order Comment: 157 Performed By: #### M 100.2200, L400.0001 #### [facility] [address] [place], [address] CA,Total 8.7 mg/dL Normal 8.5-10.1 [facility] Comment on above: Order Comment: 157 Performed By: #### M 100.2200, L400.0001 #### [facility] [address] [place], [address] Chloride [Moles/Vol] 104 mmol/L Normal 98-107 [facility] Comment on above: Order Comment: 157 Performed By: #### M 100.2200, L400.0001 #### [facility] [address] [place], [address] CO2 [Moles/Vol] 31.0 mmol/L Normal 21.0-32.0 [facility] Comment on above: Order Comment: 157 Performed By: #### M 100.2200, L400.0001 #### [facility] [address] [place], [address] Creatinine [Mass/Vol] 1.07 mg/dL High 0.55-1.02 [facility] Comment on above: Order Comment: 157 Result Comment: The validity of the calculated GFR GFRAA in patients over 70 years has not been determined. Clinical correlation is essential. Performed By: #### M 100.2200, L400.0001 #### [facility] [address] [place], [address] EST GFR - AA 63 mL/min Normal >60 [facility] Comment on above: Order Comment: 157 Result Comment: Afri can Afghan GFR Calc Performed By: #### M 100.2200, L400.0001 #### [facility] [address] [place], [address] GAP 6 Normal 5-15 [facility] Comment on above: Order Comment: 157 Performed By: #### M 100.2200, L400.0001 #### [facility] [address] [place], [address] GFR/1.73 sq M.predicted among non-blacks MDRD (S/P/Bld) [Vol rate/Area] 52 mL/min/{1.73_m2} Low >60 [facility] Comment on above: Order Comment: 157 Result Comment: Non- GFR Calc Performed By: #### M 100.2200, L400.0001 #### [facility] [address] [place], [address] Glucose [Mass/Vol] 123 mg/dL High 74-106 [facility] Comment on above: Order Comment: 157 Result Comment: Fast ing Glucose result from 100 to 125 mg/dL suggests IMPAIRED HOMEOSTASIS per A.D.A. criteria. Performed By: #### M 100.2200, L400.0001 #### [facility] [address] [place], [address] Potassium [Moles/Vol] 3.5 mmol/L Normal 3.5-5.1 [facility] Comment on above: Order Comment: 157 Performed By: #### M 100.2200, L400.0001 #### [facility] [address] [place], [address] Sodium [Moles/Vol] 141 mmol/L Normal 136-145 [facility] Comment on above: Order Comment: 157 Performed By: #### M 100.2200, L400.0001 #### [facility] [address] [place], [address] Urea nitrogen [Mass/Vol] 27 mg/dL High 7-18 [facility] Comment on above: Order Comment: 157 Performed By: #### M 100.2200, L400.0001 #### [facility] [address] [place], [address] Basic Metabolic Profile (BMP )on 02-20-2024 BUN/CRE 21.6 RATIO High 10-20 [facility] Comment on above: Order Comment: 157 Performed By: #### L 500.2500 #### [facility] Laboratory [address] [place], [address] CA,Total 8.7 mg/dL Normal 8.5-10.1 [facility] Comment on above: Order Comment: 157 Performed By: #### L 500.2500 #### [facility] Laboratory [address] [place], [address] Chloride [Moles/Vol] 104 mmol/L Normal 98-107 [facility] Comment on above: Order Comment: 157 Performed By: #### L 500.2500 #### [facility] Laboratory [address] [place], [address] CO2 [Moles/Vol] 31.0 mmol/L Normal 21.0-32.0 [facility] Comment on above: Order Comment: 157 Performed By: #### L 500.2500 #### [facility] Laboratory [address] [place], [address] Creatinine [Mass/Vol] 0.97 mg/dL Normal 0.55-1.02 [facility] Comment on above: Order Comment: 157 Result Comment: The validity of the calculated GFR GFRAA in patients over 70 years has not been determined. Clinical correlation is essential. Performed By: #### L 500.2500 #### [facility] Laboratory [address] [place], [address] EST GFR - AA 71 mL/min Normal >60 [facility] Comment on above: Order Comment: 157 Result Comment: Afri can Afghan GFR Calc Performed By: #### L 500.2500 #### [facility] Laboratory [address] [place], [address] GAP 6 Normal 5-15 [facility] Comment on above: Order Comment: 157 Performed By: #### L 500.2500 #### [facility] Laboratory [address] [place], [address] GFR/1.73 sq M.predicted among non-blacks MDRD (S/P/Bld) [Vol rate/Area] 58 mL/min/{1.73_m2} Low >60 [facility] Comment on above: Order Comment: 157 Result Comment: Non- GFR Calc Performed By: #### L 500.2500 #### [facility] Laboratory [address] [place], [address] Glucose [Mass/Vol] 160 mg/dL High 74-106 [facility] Comment on above: Order Comment: 157 Result Comment: Fast ing Glucose result greater than or equal to 126 mg/dL suggests DIABETES MELLITUS per A.D.A. criteria. Performed By: #### L 500.2500 #### [facility] Laboratory [address] [place], [address] Potassium [Moles/Vol] 3.6 mmol/L Normal 3.5-5.1 [facility] Comment on above: Order Comment: 157 Performed By: #### L [id number] #### [facility] Laboratory [address] [place], [address] Sodium [Moles/Vol] 141 mmol/L Normal 136-145 [facility] Comment on above: Order Comment: 157 Performed By: #### L 500.2500 #### [facility] Laboratory [address] [place], [address] Urea nitrogen [Mass/Vol] 21 mg/dL High 7-18 [facility] Comment on above: Order Comment: 157 Performed By: #### L 500.2500 #### [facility] Laboratory [address] [place], [address] 36on 02-05-2024 36 Okay, thank you appreciate her letting us know [facility] 36 We had returned mail on patient---I called her to get her new address. She stated that she is in assisted living at [facility] and will not be a patient at our office. She also wanted Dr. Lopez to know that she appreciates everything that he has done for her over the years. [facility] Basic Metabolic Profile (BMP )on 02-05-2024 BUN/CRE 21.9 RATIO High 10-20 [facility] Comment on above: Order Comment: 157 Performed By: #### L 501.5200, L500.2500 #### [facility] Laboratory [address] [place], [address] CA,Total 8.5 mg/dL Normal 8.5-10.1 [facility] Comment on above: Order Comment: 157 Performed By: #### L 501.5200, L500.2500 #### [facility] Laboratory [address] [place], [address] Chloride [Moles/Vol] 104 mmol/L Normal 98-107 [facility] Comment on above: Order Comment: 157 Performed By: #### L 501.5200, L500.2500 #### [facility] Laboratory [address] [place], [address] CO2 [Moles/Vol] 29.0 mmol/L Normal 21.0-32.0 [facility] Comment on above: Order Comment: 157 Performed By: #### L 501.5200, L500.2500 #### [facility] Laboratory [address] [place], [address] Creatinine [Mass/Vol] 1.14 mg/dL High 0.55-1.02 [facility] Comment on above: Order Comment: 157 Result Comment: The validity of the calculated GFR GFRAA in patients over 70 years has not been determined. Clinical correlation is essential. Performed By: #### L 501.5200, L500.2500 #### [facility] Laboratory [address] [place], [address] EST GFR - AA 59 mL/min Low >60 [facility] Comment on above: Order Comment: 157 Result Comment: Afri can Afghan GFR Calc Performed By: #### L 501.5200, L500.2500 #### [facility] Laboratory [address] [place], [address] GAP 5 Normal 5-15 [facility] Comment on above: Order Comment: 157 Performed By: #### L 501.5200, L500.2500 #### [facility] Laboratory [address] [place], [address] GFR/1.73 sq M.predicted among non-blacks MDRD (S/P/Bld) [Vol rate/Area] 49 mL/min/{1.73_m2} Low >60 [facility] Comment on above: Order Comment: 157 Result Comment: Non- GFR Calc Performed By: #### L 501.5200, L500.2500 #### [facility] Laboratory [address] [place], [address] Glucose [Mass/Vol] 231 mg/dL High 74-106 [facility] Comment on above: Order Comment: 157 Result Comment: Gluc ose result greater than or equal to 200 mg/dL suggests DIABETES MELLITUS per A.D.A. criteria. Performed By: #### L 501.5200, L500.2500 #### [facility] Laboratory [address] [place], [address] Potassium [Moles/Vol] 3.6 mmol/L Normal 3.5-5.1 [facility] Comment on above: Order Comment: 157 Performed By: #### L 501.5200, L500.2500 #### [facility] Laboratory [address] [place], [address] Sodium [Moles/Vol] 138 mmol/L Normal 136-145 [facility] Comment on above: Order Comment: 157 Performed By: #### L 501.5200, L500.2500 #### [facility] Laboratory [address] [place], [address] Urea nitrogen [Mass/Vol] 25 mg/dL High 7-18 [facility] Comment on above: Order Comment: 157 Performed By: #### L 501.5200, L500.2500 #### [facility] Laboratory [address] [place], [address] Progress Noteon 01-03-2024 Progress Note error [facility] Progress Noteon 12-29-2023 Progress Note Please schedule AWV. Normal [facility] Progress Note Called patient---moustapha ne number is not working--sent letter by mail. [facility] 10-27-2023 36 Spoke with jaylon Pascual it was a mistake and he did not need anything for the patient. [facility] 36on 10-26-2023 36 As far as I know she still considers us her primary care however she misses a lot of appointments and cancels at other times. [facility] 36 Name of caller: Ankur Valdivia Contact phone number: [phone] Relationship to Patient: [facility] Provider: Dr Lopez Practice: [facility] Chief Complaint/Reason for Call: Ankur Valdivia from [facility] would like to confirm that patient is still being treated at this office. Please advise. Best time of day caller can be reached: any Patient advised that office/PCP has 24-48 business hours to return their call: Yes Normal [facility] Basophil percentageOrdered B y: Melissa Reed on 09-29-2023 Chloride [Moles/Vol] 106 mmol/L 98-107 [facility] Glucose [Mass/Vol] 165 mg/dL 74-106 [facility] Comment on above: Fasting Glucose resu lt greater than or equal to 126 mg/dL suggests DIABETES MELLITUS per A.D.A. criteria. Potassium [Moles/Vol] 3.5 mmol/L 3.5-5.1 [facility] Sodium [Moles/Vol] 135 mmol/L 136-145 [facility] Laboratory - Chemistry and C hemistry - challengeOrdered By: Melissa Reed on 09-29-2023 CO2 [Moles/Vol] 26.0 mmol/L 21.0-32.0 [facility] Urea nitrogen/Creatinine [Mass ratio] 23.7 mg/mg 10-20 [facility] No Panel InformationOrdered By: Melissa Reed on 09-29-2023 Estimated GFR (MDRD) Amer 57 mL/min >60 [facility] Comment on above: GFR Calc Estimated GFR (MDRD) Non-Af Amer 47 mL/min >60 [facility] Comment on above: Non- GFR Calc Serum or plasma calcium danae urement (mass/volume)Ordered By: Melissa Reed on 09-29-2023 Calcium [Mass/Vol] 8.5 mg/dL 8.5-10.1 [facility] Serum or plasma creatinine m easurement (mass/volume)Ordered By: Melissa Reed on 09-29-2023 Creatinine [Mass/Vol] 1.18 mg/dL 0.55-1.02 [facility] Comment on above: The validity of the calculated GFR & GFRAA in patients over 70 years has not been determined. Clinical correlation is essential. Serum or plasma urea nitroge n measurement (mass/volume)Ordered By: Melissa Reed on 09-29-2023 Urea nitrogen [Mass/Vol] 28 mg/dL 7-18 [facility] Thin prep Papanicolaou smear with manual screeningOrdered By: Melissa Reed on 09-29-2023 Thin prep Papanicolaou smear with manual screening 3 5-15 [facility] Basophil percentageOrdered B y: Melissa Reed on 09-14-2023 Chloride [Moles/Vol] 106 mmol/L 98-107 [facility] Glucose [Mass/Vol] 191 mg/dL 74-106 [facility] Comment on above: Fasting Glucose resu lt greater than or equal to 126 mg/dL suggests DIABETES MELLITUS per A.D.A. criteria. Potassium [Moles/Vol] 3.8 mmol/L 3.5-5.1 [facility] Sodium [Moles/Vol] 138 mmol/L 136-145 [facility] Laboratory - Chemistry and C hemistry - challengeOrdered By: Melissa Reed on 09-14-2023 CO2 [Moles/Vol] 29.0 mmol/L 21.0-32.0 [facility] Urea nitrogen/Creatinine [Mass ratio] 17.8 mg/mg 10-20 [facility] No Panel InformationOrdered By: Melissa Reed on 09-14-2023 Estimated GFR (MDRD) Amer 63 mL/min >60 [facility] Comment on above: GFR Calc Estimated GFR (MDRD) Non-Af Amer 52 mL/min >60 [facility] Comment on above: Non- GFR Calc Serum or plasma calcium danae urement (mass/volume)Ordered By: Melissa Reed on 09-14-2023 Calcium [Mass/Vol] 8.7 mg/dL 8.5-10.1 [facility] Serum or plasma creatinine m easurement (mass/volume)Ordered By: Melissa Reed on 09-14-2023 Creatinine [Mass/Vol] 1.07 mg/dL 0.55-1.02 [facility] Comment on above: The validity of the calculated GFR & GFRAA in patients over 70 years has not been determined. Clinical correlation is essential. Serum or plasma urea nitroge n measurement (mass/volume)Ordered By: Melissa Reed on 09-14-2023 Urea nitrogen [Mass/Vol] 19 mg/dL 7-18 [facility] Thin prep Papanicolaou smear with manual screeningOrdered By: Melissa Reed on 09-14-2023 Thin prep Papanicolaou smear with manual screening 3 5-15 [facility] Basophil percentageOrdered B y: Melissa Reed on 08-31-2023 Chloride [Moles/Vol] 104 mmol/L 98-107 [facility] Glucose [Mass/Vol] 169 mg/dL 74-106 [facility] Comment on above: Fasting Glucose resu lt greater than or equal to 126 mg/dL suggests DIABETES MELLITUS per A.D.A. criteria. Potassium [Moles/Vol] 3.6 mmol/L 3.5-5.1 [facility] Sodium [Moles/Vol] 140 mmol/L 136-145 [facility] Laboratory - Chemistry and C hemistry - challengeOrdered By: Melissa Reed on 08-31-2023 CO2 [Moles/Vol] 30.0 mmol/L 21.0-32.0 [facility] Urea nitrogen/Creatinine [Mass ratio] 20.3 mg/mg 10-20 [facility] No Panel InformationOrdered By: Melissa Reed on 08-31-2023 Estimated GFR (MDRD) Amer 57 mL/min >60 [facility] Comment on above: GFR Calc Estimated GFR (MDRD) Non-Af Amer 47 mL/min >60 [facility] Comment on above: Non- GFR Calc Serum or plasma calcium danae urement (mass/volume)Ordered By: Melissa Reed on 08-31-2023 Calcium [Mass/Vol] 8.9 mg/dL 8.5-10.1 [facility] Serum or plasma creatinine m easurement (mass/volume)Ordered By: Melissa Reed on 08-31-2023 Creatinine [Mass/Vol] 1.18 mg/dL 0.55-1.02 [facility] Comment on above: The validity of the calculated GFR & GFRAA in patients over 70 years has not been determined. Clinical correlation is essential. Serum or plasma urea nitroge n measurement (mass/volume)Ordered By: Melissa Reed on 08-31-2023 Urea nitrogen [Mass/Vol] 24 mg/dL 7-18 [facility] Thin prep Papanicolaou smear with manual screeningOrdered By: Melissa Reed on 08-31-2023 Thin prep Papanicolaou smear with manual screening 6 5-15 [facility] Basophil percentageOrdered B y: Melissa Reed on 08-17-2023 Chloride [Moles/Vol] 105 mmol/L 98-107 [facility] Glucose [Mass/Vol] 192 mg/dL 74-106 [facility] Comment on above: Fasting Glucose resu lt greater than or equal to 126 mg/dL suggests DIABETES MELLITUS per A.D.A. criteria. Potassium [Moles/Vol] 3.8 mmol/L 3.5-5.1 [facility] Sodium [Moles/Vol] 138 mmol/L 136-145 [facility] Laboratory - Chemistry and C hemistry - challengeOrdered By: Melissa Reed on 08-17-2023 CO2 [Moles/Vol] 29.0 mmol/L 21.0-32.0 [facility] Urea nitrogen/Creatinine [Mass ratio] 22.8 mg/mg 10-20 [facility] No Panel InformationOrdered By: Melissa Reed on 08-17-2023 Estimated GFR (MDRD) Amer 59 mL/min >60 [facility] Comment on above: GFR Calc Estimated GFR (MDRD) Non-Af Amer 49 mL/min >60 [facility] Comment on above: Non- GFR Calc Serum or plasma calcium danae urement (mass/volume)Ordered By: Melissa Reed on 08-17-2023 Calcium [Mass/Vol] 8.8 mg/dL 8.5-10.1 [facility] Serum or plasma creatinine m easurement (mass/volume)Ordered By: Melissa Reed on 08-17-2023 Creatinine [Mass/Vol] 1.14 mg/dL 0.55-1.02 [facility] Comment on above: The validity of the calculated GFR & GFRAA in patients over 70 years has not been determined. Clinical correlation is essential. Serum or plasma urea nitroge n measurement (mass/volume)Ordered By: Melissa Reed on 08-17-2023 Urea nitrogen [Mass/Vol] 26 mg/dL 7-18 [facility] Thin prep Papanicolaou smear with manual screeningOrdered By: Melissa eRed on 08-17-2023 Thin prep Papanicolaou smear with manual screening 4 5-15 [facility] Basophil percentageOrdered B y: Melissa Reed on 08-14-2023 Chloride [Moles/Vol] 104 mmol/L 98-107 [facility] Glucose [Mass/Vol] 146 mg/dL 74-106 [facility] Comment on above: Fasting Glucose resu lt greater than or equal to 126 mg/dL suggests DIABETES MELLITUS per A.D.A. criteria. Potassium [Moles/Vol] 3.4 mmol/L 3.5-5.1 [facility] Sodium [Moles/Vol] 138 mmol/L 136-145 [facility] Laboratory - Chemistry and C hemistry - challengeOrdered By: Melissa Reed on 08-14-2023 CO2 [Moles/Vol] 29.0 mmol/L 21.0-32.0 [facility] Urea nitrogen/Creatinine [Mass ratio] 24.8 mg/mg 10-20 [facility] No Panel InformationOrdered By: Melissa Reed on 08-14-2023 Estimated GFR (MDRD) Amer 60 mL/min >60 [facility] Comment on above: GFR Calc Estimated GFR (MDRD) Non-Af Amer 49 mL/min >60 [facility] Comment on above: Non- GFR Calc Serum or plasma calcium danae urement (mass/volume)Ordered By: Melissa Reed on 08-14-2023 Calcium [Mass/Vol] 9.1 mg/dL 8.5-10.1 [facility] Serum or plasma creatinine m easurement (mass/volume)Ordered By: Melissa Reed on 08-14-2023 Creatinine [Mass/Vol] 1.13 mg/dL 0.55-1.02 [facility] Comment on above: The validity of the calculated GFR & GFRAA in patients over 70 years has not been determined. Clinical correlation is essential. Serum or plasma urea nitroge n measurement (mass/volume)Ordered By: Melissa Reed on 08-14-2023 Urea nitrogen [Mass/Vol] 28 mg/dL 7-18 [facility] Thin prep Papanicolaou smear with manual screeningOrdered By: Melissa Reed on 08-14-2023 Thin prep Papanicolaou smear with manual screening 5 5-15 [facility] Basophil percentageOrdered B y: Melissa Reed on 07-31-2023 Chloride [Moles/Vol] 107 mmol/L 98-107 [facility] Glucose [Mass/Vol] 149 mg/dL 74-106 [facility] Comment on above: Fasting Glucose resu lt greater than or equal to 126 mg/dL suggests DIABETES MELLITUS per A.D.A. criteria. Potassium [Moles/Vol] 3.4 mmol/L 3.5-5.1 [facility] Sodium [Moles/Vol] 142 mmol/L 136-145 [facility] Laboratory - Chemistry and C hemistry - challengeOrdered By: Melissa Reed on 07-31-2023 CO2 [Moles/Vol] 30.0 mmol/L 21.0-32.0 [facility] Urea nitrogen/Creatinine [Mass ratio] 21.7 mg/mg 10-20 [facility] No Panel InformationOrdered By: Melissa Reed on 07-31-2023 Estimated GFR (MDRD) Amer 64 mL/min >60 [facility] Comment on above: GFR Calc Estimated GFR (MDRD) Non-Af Amer 53 mL/min >60 [facility] Comment on above: Non- GFR Calc Serum or plasma calcium danae urement (mass/volume)Ordered By: Melissa Reed on 07-31-2023 Calcium [Mass/Vol] 8.7 mg/dL 8.5-10.1 [facility] Serum or plasma creatinine m easurement (mass/volume)Ordered By: Melissa Reed on 07-31-2023 Creatinine [Mass/Vol] 1.06 mg/dL 0.55-1.02 [facility] Comment on above: The validity of the calculated GFR & GFRAA in patients over 70 years has not been determined. Clinical correlation is essential. Serum or plasma urea nitroge n measurement (mass/volume)Ordered By: Melissa Reed on 07-31-2023 Urea nitrogen [Mass/Vol] 23 mg/dL 7-18 [facility] Thin prep Papanicolaou smear with manual screeningOrdered By: Melissa Reed on 07-31-2023 Thin prep Papanicolaou smear with manual screening 5 5-15 [facility] Basophil percentageOrdered B y: Melissa Reed on 07-17-2023 Chloride [Moles/Vol] 106 mmol/L 98-107 [facility] Glucose [Mass/Vol] 141 mg/dL 74-106 [facility] Comment on above: Fasting Glucose resu lt greater than or equal to 126 mg/dL suggests DIABETES MELLITUS per A.D.A. criteria. Potassium [Moles/Vol] 4.0 mmol/L 3.5-5.1 [facility] Comment on above: Moderate Hemolysis, Result may be falsely increased. Sodium [Moles/Vol] 137 mmol/L 136-145 [facility] Laboratory - Chemistry and C hemistry - challengeOrdered By: Melissa Reed on 07-17-2023 CO2 [Moles/Vol] 29.0 mmol/L 21.0-32.0 [facility] Urea nitrogen/Creatinine [Mass ratio] 22.6 mg/mg 10-20 [facility] No Panel InformationOrdered By: Melissa Reed on 07-17-2023 Estimated GFR (MDRD) Amer 58 mL/min >60 [facility] Comment on above: GFR Calc Estimated GFR (MDRD) Non-Af Amer 48 mL/min >60 [facility] Comment on above: Non- GFR Calc Serum or plasma calcium danae urement (mass/volume)Ordered By: Melissa Reed on 07-17-2023 Calcium [Mass/Vol] 9.3 mg/dL 8.5-10.1 [facility] Serum or plasma creatinine m easurement (mass/volume)Ordered By: Melissa Reed on 07-17-2023 Creatinine [Mass/Vol] 1.15 mg/dL 0.55-1.02 [facility] Comment on above: The validity of the calculated GFR & GFRAA in patients over 70 years has not been determined. Clinical correlation is essential. Serum or plasma urea nitroge n measurement (mass/volume)Ordered By: Melissa Reed on 07-17-2023 Urea nitrogen [Mass/Vol] 26 mg/dL 7-18 [facility] Thin prep Papanicolaou smear with manual screeningOrdered By: Melissa Reed on 07-17-2023 Thin prep Papanicolaou smear with manual screening 2 5-15 [facility] Basophil percentageOrdered B y: Melissa Reed on 07-03-2023 Chloride [Moles/Vol] 106 mmol/L 98-107 [facility] Glucose [Mass/Vol] 134 mg/dL 74-106 [facility] Comment on above: Fasting Glucose resu lt greater than or equal to 126 mg/dL suggests DIABETES MELLITUS per A.D.A. criteria. Potassium [Moles/Vol] 4.0 mmol/L 3.5-5.1 [facility] Sodium [Moles/Vol] 140 mmol/L 136-145 [facility] Laboratory - Chemistry and C hemistry - challengeOrdered By: Melissa Reed on 07-03-2023 CO2 [Moles/Vol] 28.0 mmol/L 21.0-32.0 [facility] Urea nitrogen/Creatinine [Mass ratio] 20.5 mg/mg 10-20 [facility] No Panel InformationOrdered By: Melissa Reed on 07-03-2023 Estimated GFR (MDRD) Amer 71 mL/min >60 [facility] Comment on above: GFR Calc Estimated GFR (MDRD) Non-Af Amer 58 mL/min >60 [facility] Comment on above: Non- GFR Calc Serum or plasma calcium danae urement (mass/volume)Ordered By: Melissa Reed on 07-03-2023 Calcium [Mass/Vol] 8.6 mg/dL 8.5-10.1 [facility] Serum or plasma creatinine m easurement (mass/volume)Ordered By: Melissa Reed on 07-03-2023 Creatinine [Mass/Vol] 0.98 mg/dL 0.55-1.02 [facility] Comment on above: The validity of the calculated GFR & GFRAA in patients over 70 years has not been determined. Clinical correlation is essential. Serum or plasma urea nitroge n measurement (mass/volume)Ordered By: Melissa Reed on 07-03-2023 Urea nitrogen [Mass/Vol] 20 mg/dL 7-18 [facility] Thin prep Papanicolaou smear with manual screeningOrdered By: Melissa Reed on 07-03-2023 Thin prep Papanicolaou smear with manual screening 6 5-15 [facility] Culture, urineOrdered By: Sd Reed on 06-23-2023 Bacteria identified Cx Nom (U) ESBL Escherichia coli [facility] Progress Noteon 06-23-2023 Progress Note EMR reviewed. The patient was at [facility] for several weeks after a hospitalization. [facility] called and spoke with a staff member today and the patient was discharged to the [facility] living facility. PMH: RLS, HTN, GI-BLEED, CKD3, DM2, HYPOTHYROID, ANXIETY, DEPRESSION, HYPOKALEMIA, HYPERLIPIDEMIA HTN MEDS: AMLODIPINE 10MG DAILY SHE STATED THE NURSE HAS BEEN CHECKING HER BP'S 3 TIMES DAILY DM MEDS: LANTUS INSULIN 19 UNITS DAILY HUMALOG INSULIN 10 UNITS 3 TIMES DAILY WITH MEALS [id number] ON 03/01/23 THE PATIENT STATED SHE IS UNSURE OF WHAT INSULIN THEY ARE GIVING HER. THE NURSE IS MONITORING HER BLOOD SUGARS BEFORE EVERY MEAL. THE PATIENT DOESN'T KNOW WHAT HER READINGS HAVE BEEN. [facility] CALLED THE PATIENT'S SON-MAXIMINO AND RECEIVED THE PATIENT'S NEW PHONE NUMBER. CM CALLED THE PATIENT AND SHE STATED SHE [...] IS NOW SEEING THE DOCTOR AT THE [facility]. SDOH COMPLETED. CM WILL DISCHARGE THE PATIENT FROM THE [facility] FLOOR MECHANIC MGMT. PROGRAM DUE TO PCP CHANGING. Normal [facility] Absolute lymphocyte countOrd ered By: Melissa Reed on 06-20-2023 Lymphocytes Auto (Unsp spec) [#/Vol] 1.72 10*3/uL 0.83-4.51 [facility] Basophil percentageOrdered B y: Melissa Reed on 06-20-2023 Basophils/100 WBC (Bld) 1.0 % 0-1 [facility] Chloride [Moles/Vol] 108 mmol/L 98-107 [facility] Eosinophils/100 WBC (Bld) 7.8 % 0-5 [facility] Glucose [Mass/Vol] 155 mg/dL 74-106 [facility] Comment on above: Fasting Glucose resu lt greater than or equal to 126 mg/dL suggests DIABETES MELLITUS per A.D.A. criteria. Neutrophils (Bld) [#/Vol] 5.3 10*3/uL 2.0-7.7 [facility] Neutrophils/100 WBC (Bld) 61.1 % 47-70 [facility] Potassium [Moles/Vol] 4.0 mmol/L 3.5-5.1 [facility] Sodium [Moles/Vol] 140 mmol/L 136-145 [facility] WBC (Bld) [#/Vol] 8.6 10*3/uL 4.4-11.0 [facility] Blood erythrocytes count (nu mber/volume)Ordered By: Melissa Reed on 06-20-2023 RBC (Bld) [#/Vol] 3.97 10*6/uL 4.2-5.4 [facility] Blood hemoglobin measurement (mass/volume)Ordered By: Melissa Reed on 06-20-2023 Hemoglobin (Bld) [Mass/Vol] 11.0 g/dL 12.0-15.0 [facility] Blood lymphocytes/100 leukoc ytesOrdered By: Melissa Reed on 06-20-2023 Lymphocytes/100 WBC (Bld) 20.0 % 19-41 [facility] Blood monocytes/100 leukocyt esOrdered By: Melissa Reed on 06-20-2023 Monocytes/100 WBC (Bld) 9.9 % 0-10 [facility] Blood platelet mean volumeOr dered By: Melissa Reed on 06-20-2023 Platelet mean volume (Bld) [Entitic vol] 9.9 fL 6.2-12.0 [facility] Determination of erythrocyte mean corpuscular volume (MCV)Ordered By: Melissa Reed on 06-20-2023 MCV (RBC) [Entitic vol] 93.2 fL 81-99 [facility] Hematocrit Auto (Bld) [Volum e fraction]Ordered By: Melissa Reed on 06-20-2023 Hematocrit (Bld) [Volume fraction] 37.0 % 37-47 [facility] Laboratory - Chemistry and C hemistry - challengeOrdered By: Melissa Reed on 06-20-2023 CO2 [Moles/Vol] 30.0 mmol/L 21.0-32.0 [facility] Cobalamin (Vitamin B12) [Mass/Vol] 430 pg/mL 211-911 [facility] Magnesium [Mass/Vol] 2.0 mg/dL 1.6-2.6 [facility] Urea nitrogen/Creatinine [Mass ratio] 19.8 mg/mg 10-20 [facility] Laboratory - Hematology and Cell countsOrdered By: Melissa Reed on 06-20-2023 Erythrocyte distribution width (RBC) [Entitic vol] 48.2 fL 35.1-43.9 [facility] Erythrocyte distribution width (RBC) [Ratio] 14.2 % 11.6-14.6 [facility] Immature granulocytes/100 WBC (Bld) 0.200 % 0.0-0.9 [facility] Comment on above: IG% - Immature Granu locytes (promyelocytes, myelocytes and metamyelocytes) > 1% indicates that a LEFT SHIFT is Present. MCH (RBC) [Entitic mass] 27.7 pg 27.0-32.0 [facility] Nucleated RBC/100 WBC (Bld) [Ratio] 0 % 0-5 [facility] MCHC Auto (RBC) [Mass/Vol]Or dered By: Melissa Reed on 06-20-2023 MCHC (RBC) [Mass/Vol] 29.7 g/dL 32-36 [facility] No Panel InformationOrdered By: Melissa Reed on 06-20-2023 Estimated GFR (MDRD) Amer 72 mL/min >60 [facility] Comment on above: GFR Calc Estimated GFR (MDRD) Non-Af Amer 60 mL/min >60 [facility] Comment on above: Non- GFR Calc Thyroid Stimulating Hormone (TSH) 1.57 uIU/mL 0.358-3.74 [facility] Vitamin D 25-Hydroxy 60.6 ng/mL [facility] Comment on above: Vitamin D 25(OH) Sta tus Range Deficiency <20 ng/mL (50nmol/L) Insufficiency 20 - 30 ng/mL (50 - 75 nmol/L) Sufficiency 30 - 100 ng/mL (75 - 250 nmol/L) Toxicity >100 ng/mL (>250 nmol/L) Platelets bldOrdered By: Lillian Reed on 06-20-2023 Platelets (Bld) [#/Vol] 317 10*3/uL 150-450 [facility] Serum or plasma calcium danae urement (mass/volume)Ordered By: Melissa Reed on 06-20-2023 Calcium [Mass/Vol] 8.8 mg/dL 8.5-10.1 [facility] Serum or plasma creatinine m easurement (mass/volume)Ordered By: Melissa Reed on 06-20-2023 Creatinine [Mass/Vol] 0.96 mg/dL 0.55-1.02 [facility] Comment on above: The validity of the calculated GFR & GFRAA in patients over 70 years has not been determined. Clinical correlation is essential. Serum or plasma urea nitroge n measurement (mass/volume)Ordered By: Melissa Reed on 06-20-2023 Urea nitrogen [Mass/Vol] 19 mg/dL 7-18 [facility] Thin prep Papanicolaou smear with manual screeningOrdered By: Melissa Reed on 06-20-2023 Thin prep Papanicolaou smear with manual screening 2 5-15 [facility] Whole blood hemoglobin A1c/t otal hemoglobin ratio (mass fraction)Ordered By: Melissa Reed on 06-20-2023 HbA1c (Bld) [Mass fraction] 6.4 % 3.8-5.6 [facility] Comment on above: Normal < 5.7 % Predi abetic 5.7 - 6.4 % Diabetic >or= 6.5 % Please note range changes. Progress Noteon 06-07-2023 Progress Note CM called and spoke with a staff member at [facility]. The patient is still at the facility. CM will follow-up with the patient once she is discharged to home. Normal [facility] Culture, urineOrdered By: Anastasia Olvera on 05-10-2023 Bacteria identified Cx Nom (U) Klebsiella pneumoniae sp pneum [facility] Bacteria identified Cx Nom (U) Klebsiella pneumoniae sp pneum [facility] No Panel InformationOrdered By: Lambert Olvera on 05-01-2023 Thyroid Stimulating Hormone (TSH) 1.91 uIU/mL 0.358-3.74 [facility] Progress Noteon 04-06-2023 Progress Note EMR REVIEWED. [...] was discharged. RECOMMENDED NEXT STEPS: Transferred to [facility] SNF. Continue close monitoring of BG. Avoid nephrotoxins/NSAIDS/bela inh. Levothroid dose decreased. Apresoline started. PMH: RLS, HTN, GI-BLEED, CKD3, DM2, HYPOTHYROID, ANXIETY, DEPRESSION, HYPOKALEMIA, HYPERLIPIDEMIA FOLLOW-UP APPTS: 04/27/23-FAMILY MEDICINE HTN MEDS: AMLODIPINE 10MG DAILY HYDRALAZINE 25MG THREE TIMES DAILY ?CHECKING BP'S DM MEDS: LANTUS INSULIN 19 UNITS DAILY HUMALOG INSULIN 10 UNITS WITH MEALS [id number] ON 03/01/23 ?MONITORING BLOOD SUGARS CM CALLED [...] ONCE SHE IS DISCHARGED FROM SNF. Normal [facility] Basophil percentageOrdered B y: Lambert Olvera on 04-04-2023 Bilirubin [Mass/Vol] 0.30 mg/dL 0.20-1.00 [facility] Comment on above: For patients on eltr ombopag therapy, use of Dimension [place] TBIL is not recommended. Chloride [Moles/Vol] 109 mmol/L 98-107 [facility] Glucose [Mass/Vol] 112 mg/dL 74-106 [facility] Comment on above: Fasting Glucose resu lt from 100 to 125 mg/dL suggests IMPAIRED HOMEOSTASIS per A.D.A. criteria. Potassium [Moles/Vol] 4.2 mmol/L 3.5-5.1 [facility] Protein [Mass/Vol] 6.5 g/dL 6.4-8.2 [facility] Sodium [Moles/Vol] 140 mmol/L 136-145 [facility] WBC (Bld) [#/Vol] 8.5 10*3/uL 4.4-11.0 [facility] Blood erythrocytes count (nu mber/volume)Ordered By: Lambert Olvera on 04-04-2023 RBC (Bld) [#/Vol] 4.34 10*6/uL 4.2-5.4 [facility] Blood hemoglobin measurement (mass/volume)Ordered By: Lambert Olvera on 04-04-2023 Hemoglobin (Bld) [Mass/Vol] 11.9 g/dL 12.0-15.0 [facility] Blood platelet mean volumeOr dered By: Lambert Olvera on 04-04-2023 Platelet mean volume (Bld) [Entitic vol] 10.4 fL 6.2-12.0 [facility] Determination of erythrocyte mean corpuscular volume (MCV)Ordered By: Lambert Olvera on 04-04-2023 MCV (RBC) [Entitic vol] 91.9 fL 81-99 [facility] Hematocrit Auto (Bld) [Volum e fraction]Ordered By: Lambert Olvera on 04-04-2023 Hematocrit (Bld) [Volume fraction] 39.9 % 37-47 [facility] Laboratory - Chemistry and C hemistry - challengeOrdered By: Lambert Olvera on 04-04-2023 ALP [Catalytic activity/Vol] 96 U/L 45-117 [facility] ALT [Catalytic activity/Vol] 28 U/L 13-56 [facility] CO2 [Moles/Vol] 27.0 mmol/L 21.0-32.0 [facility] Globulin (S) [Mass/Vol] 3.7 g/dL 2.2-4.2 [facility] Urea nitrogen/Creatinine [Mass ratio] 21.8 mg/mg 10-20 [facility] Laboratory - Hematology and Cell countsOrdered By: Lambert Olvera on 04-04-2023 Erythrocyte distribution width (RBC) [Entitic vol] 47.0 fL 35.1-43.9 [facility] Erythrocyte distribution width (RBC) [Ratio] 13.9 % 11.6-14.6 [facility] MCH (RBC) [Entitic mass] 27.4 pg 27.0-32.0 [facility] MCHC Auto (RBC) [Mass/Vol]Or dered By: Lambert Olvera on 04-04-2023 MCHC (RBC) [Mass/Vol] 29.8 g/dL 32-36 [facility] No Panel InformationOrdered By: Lambert Olvera on 04-04-2023 Estimated GFR (MDRD) Amer 76 mL/min >60 [facility] Comment on above: GFR Calc Estimated GFR (MDRD) Non-Af Amer 63 mL/min >60 [facility] Comment on above: Non- GFR Calc Platelets bldOrdered By: Lisa Olvera on 04-04-2023 Platelets (Bld) [#/Vol] 315 10*3/uL 150-450 [facility] Serum or plasma albumin danae urement (mass/volume)Ordered By: Lambert Olvera on 04-04-2023 Albumin [Mass/Vol] 2.8 g/dL 3.2-5.0 [facility] Serum or plasma albumin/glob ulin mass ratioOrdered By: Lambert Olvera on 04-04-2023 Albumin/Globulin [Mass ratio] 0.8 {ratio} 0.9-2.4 [facility] Serum or plasma calcium danae urement (mass/volume)Ordered By: Lambert Olvera on 04-04-2023 Calcium [Mass/Vol] 8.6 mg/dL 8.5-10.1 [facility] Serum or plasma creatinine m easurement (mass/volume)Ordered By: Lambert Olvera on 04-04-2023 Creatinine [Mass/Vol] 0.92 mg/dL 0.55-1.02 [facility] Comment on above: The validity of the calculated GFR & GFRAA in patients over 70 years has not been determined. Clinical correlation is essential. Serum or plasma urea nitroge n measurement (mass/volume)Ordered By: Lambert Olvera on 04-04-2023 Urea nitrogen [Mass/Vol] 20 mg/dL 7-18 [facility] Thin prep Papanicolaou smear with manual screeningOrdered By: Lambert Olvera on 04-04-2023 Thin prep Papanicolaou smear with manual screening 20 U/L 15-37 [facility] Thin prep Papanicolaou smear with manual screening 4 5-15 [facility] Progress Noteon 03-31-2023 Progress Note THE PT. WAS IDENTIFI ED BY [facility] RN FROM [facility] DAILY CENS[facility] REPORT. CM WILL CONTINUE TO FOLLOW-UP WITH THE PT. FOR ANY ONGOING CM NEEDS. Normal [facility] Basophil percentageOrdered B y: Lambert Olvera on 03-20-2023 Chloride [Moles/Vol] 105 mmol/L 98-107 [facility] Glucose [Mass/Vol] 103 mg/dL 74-106 [facility] Comment on above: Fasting Glucose resu lt from 100 to 125 mg/dL suggests IMPAIRED HOMEOSTASIS per A.D.A. criteria. Potassium [Moles/Vol] 3.7 mmol/L 3.5-5.1 [facility] Sodium [Moles/Vol] 138 mmol/L 136-145 [facility] WBC (Bld) [#/Vol] 8.0 10*3/uL 4.4-11.0 [facility] Blood erythrocytes count (nu mber/volume)Ordered By: Lambert Olvera on 03-20-2023 RBC (Bld) [#/Vol] 3.75 10*6/uL 4.2-5.4 [facility] Blood hemoglobin measurement (mass/volume)Ordered By: Lambert Olvera on 03-20-2023 Hemoglobin (Bld) [Mass/Vol] 10.3 g/dL 12.0-15.0 [facility] Blood platelet mean volumeOr dered By: Lambert Olvera on 03-20-2023 Platelet mean volume (Bld) [Entitic vol] 10.5 fL 6.2-12.0 [facility] Determination of erythrocyte mean corpuscular volume (MCV)Ordered By: Lambert Olvera on 03-20-2023 MCV (RBC) [Entitic vol] 91.7 fL 81-99 [facility] Hematocrit Auto (Bld) [Volum e fraction]Ordered By: Lambert Olvera on 03-20-2023 Hematocrit (Bld) [Volume fraction] 34.4 % 37-47 [facility] Laboratory - Chemistry and C hemistry - challengeOrdered By: Lambert Olvera on 03-20-2023 CO2 [Moles/Vol] 30.0 mmol/L 21.0-32.0 [facility] Urea nitrogen/Creatinine [Mass ratio] 24.2 mg/mg 10-20 [facility] Laboratory - Hematology and Cell countsOrdered By: Lambert Olvera on 03-20-2023 Erythrocyte distribution width (RBC) [Entitic vol] 45.7 fL 35.1-43.9 [facility] Erythrocyte distribution width (RBC) [Ratio] 13.4 % 11.6-14.6 [facility] MCH (RBC) [Entitic mass] 27.5 pg 27.0-32.0 [facility] MCHC Auto (RBC) [Mass/Vol]Or dered By: Lambert Olvera on 03-20-2023 MCHC (RBC) [Mass/Vol] 29.9 g/dL 32-36 [facility] No Panel InformationOrdered By: Lambert Olvera on 03-20-2023 Estimated GFR (MDRD) Amer 70 mL/min >60 [facility] Comment on above: GFR Calc Estimated GFR (MDRD) Non-Af Amer 57 mL/min >60 [facility] Comment on above: Non- GFR Calc Thyroid Stimulating Hormone (TSH) 0.04 uIU/mL 0.358-3.74 [facility] Platelets bldOrdered By: Lisa Olvera on 03-20-2023 Platelets (Bld) [#/Vol] 333 10*3/uL 150-450 [facility] Serum or plasma calcium danae urement (mass/volume)Ordered By: Lambert Olvera on 03-20-2023 Calcium [Mass/Vol] 8.4 mg/dL 8.5-10.1 [facility] Serum or plasma creatinine m easurement (mass/volume)Ordered By: Lambert Olvera on 03-20-2023 Creatinine [Mass/Vol] 0.99 mg/dL 0.55-1.02 [facility] Comment on above: The validity of the calculated GFR & GFRAA in patients over 70 years has not been determined. Clinical correlation is essential. Serum or plasma urea nitroge n measurement (mass/volume)Ordered By: Lambert Olvera on 03-20-2023 Urea nitrogen [Mass/Vol] 24 mg/dL 7-18 [facility] Thin prep Papanicolaou smear with manual screeningOrdered By: Lambert Olvera on 03-20-2023 Thin prep Papanicolaou smear with manual screening 3 5-15 [facility] Absolute lymphocyte countOrd ered By: Baljit Jaffe on 03-18-2023 Lymphocytes Auto (Unsp spec) [#/Vol] 1.42 10*3/uL 0.83-4.51 [facility] Basophil percentageOrdered B y: Baljit Jaffe on 03-18-2023 Basophils/100 WBC (Bld) 0.6 % 0-1 [facility] Chloride [Moles/Vol] 106 mmol/L 98-107 [facility] Eosinophils/100 WBC (Bld) 5.2 % 0-5 [facility] Glucose [Mass/Vol] 111 mg/dL 74-106 [facility] Comment on above: Fasting Glucose resu lt from 100 to 125 mg/dL suggests IMPAIRED HOMEOSTASIS per A.D.A. criteria. Neutrophils (Bld) [#/Vol] 5.0 10*3/uL 2.0-7.7 [facility] Neutrophils/100 WBC (Bld) 65.0 % 47-70 [facility] Potassium [Moles/Vol] 3.7 mmol/L 3.5-5.1 [facility] Sodium [Moles/Vol] 138 mmol/L 136-145 [facility] WBC (Bld) [#/Vol] 7.8 10*3/uL 4.4-11.0 [facility] Blood erythrocytes count (nu mber/volume)Ordered By: Baljit Jaffe on 03-18-2023 RBC (Bld) [#/Vol] 3.84 10*6/uL 4.2-5.4 [facility] Blood hemoglobin measurement (mass/volume)Ordered By: Baljit Jaffe on 03-18-2023 Hemoglobin (Bld) [Mass/Vol] 10.8 g/dL 12.0-15.0 [facility] Blood lymphocytes/100 leukoc ytesOrdered By: Baljit Jaffe on 03-18-2023 Lymphocytes/100 WBC (Bld) 18.3 % 19-41 [facility] Blood monocytes/100 leukocyt esOrdered By: Baljit Jaffe on 03-18-2023 Monocytes/100 WBC (Bld) 10.6 % 0-10 [facility] Blood platelet mean volumeOr dered By: Baljit Jaffe on 03-18-2023 Platelet mean volume (Bld) [Entitic vol] 9.9 fL 6.2-12.0 [facility] Determination of erythrocyte mean corpuscular volume (MCV)Ordered By: Baljit Jaffe on 03-18-2023 MCV (RBC) [Entitic vol] 90.6 fL 81-99 [facility] Glucose Glucometer (dC) [M ass/Vol]Ordered By: Baljit Jaffe on 03-18-2023 Glucose [Mass/Vol] 111 mg/dL 74-106 [facility] Comment on above: MANAGEMENT OF PATIEN T CARE PER NURSING PROTOCOL Hematocrit Auto (Bld) [Volum e fraction]Ordered By: Baljit Jaffe on 03-18-2023 Hematocrit (Bld) [Volume fraction] 34.8 % 37-47 [facility] Laboratory - Chemistry and C hemistry - challengeOrdered By: Baljit Jaffe on 03-18-2023 CO2 [Moles/Vol] 27.0 mmol/L 21.0-32.0 [facility] Urea nitrogen/Creatinine [Mass ratio] 30.8 mg/mg 10-20 [facility] Laboratory - Hematology and Cell countsOrdered By: Baljit Jaffe on 03-18-2023 Erythrocyte distribution width (RBC) [Entitic vol] 44.9 fL 35.1-43.9 [facility] Erythrocyte distribution width (RBC) [Ratio] 13.4 % 11.6-14.6 [facility] Immature granulocytes/100 WBC (Bld) 0.300 % 0.0-0.9 [facility] Comment on above: IG% - Immature Granu locytes (promyelocytes, myelocytes and metamyelocytes) > 1% indicates that a LEFT SHIFT is Present. MCH (RBC) [Entitic mass] 28.1 pg 27.0-32.0 [facility] Nucleated RBC/100 WBC (Bld) [Ratio] 0 % 0-5 [facility] MCHC Auto (RBC) [Mass/Vol]Or dered By: Baljit Jaffe on 03-18-2023 MCHC (RBC) [Mass/Vol] 31.0 g/dL 32-36 [facility] No Panel InformationOrdered By: Baljit Jaffe on 03-18-2023 Estimated Creatinine Clearance Calc 41.46 ml/min [facility] Estimated GFR (MDRD) Amer 64 mL/min >60 [facility] Comment on above: GFR Calc Estimated GFR (MDRD) Non-Af Amer 53 mL/min >60 [facility] Comment on above: Non- GFR Calc Platelets bldOrdered By: Baljit Jaffe on 03-18-2023 Platelets (Bld) [#/Vol] 333 10*3/uL 150-450 [facility] Serum or plasma calcium danae urement (mass/volume)Ordered By: Baljit Jaffe on 03-18-2023 Calcium [Mass/Vol] 8.4 mg/dL 8.5-10.1 [facility] Serum or plasma creatinine m easurement (mass/volume)Ordered By: Baljit Jaffe on 03-18-2023 Creatinine [Mass/Vol] 1.07 mg/dL 0.55-1.02 [facility] Comment on above: The validity of the calculated GFR & GFRAA in patients over 70 years has not been determined. Clinical correlation is essential. Serum or plasma urea nitroge n measurement (mass/volume)Ordered By: Baljit Jaffe on 03-18-2023 Urea nitrogen [Mass/Vol] 33 mg/dL 7-18 [facility] Thin prep Papanicolaou smear with manual screeningOrdered By: Baljit Jaffe on 03-18-2023 Thin prep Papanicolaou smear with manual screening 5 5-15 [facility] COVID-19 virus antigen assay Ordered By: Baljit Jaffe on 03-17-2023 SARS-CoV-2 (COVID-19) Ag IA.rapid Ql (Resp) [facility] SARS-CoV-2 (COVID-19) Ag IA.rapid Ql (Resp) [facility] Gram stain for investigation of transfusion reactionOrdered By: Baljit Jaffe on 03-17-2023 Microscopic observation Gram stain Nom (Unsp spec) [facility] Microscopic observation Gram stain Nom (Unsp spec) [facility] Routine wound cultureOrdered By: Baljit Jaffe on 03-17-2023 Bacteria identified Cx Nom (Wound) No growth aerobically. [facility] Bacteria identified Cx Nom (Wound) No growth aerobically. [facility] 36on 03-15-2023 36 Sent via [employer]. Normal [facility] 36 Name of caller: Ricco noel [facility] Contact phone number: [phone] Relationship to Patient: [facility] Provider: Dr Lopez Practice: [facility] location Chief Complaint/Reason for Call: 03/15/23 Margaret calling to ask the office /provider about her Immunization Records she stated pt received Pneumococcal 23 on 04/10/21 but she is asking if anymore was given to pt if so, she will need those records faxed over to [phone] pls advise Best time of day caller can be reached: AM Patient advised that office/PCP has 24-48 business hours to return their call: Yes Normal [facility] 03-06-2023 [facility] Patient Choice Patient Name: RADHA SANDOVAL Date of : 1945 [facility] Bacteria identified Cx Nom ( U)Ordered By: Kalpesh Dillon on 03-03-2023 Interpretation and review of laboratory results [facility] Discharge med list [facility] request. [facility] Spoke with pt at bedside regarding POA, pt states she is not interested at this time to complete it and would consider completing at [place] - did call Rafaela at [place] to update her as well. 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 Will notify RN and TCC of this in rounds. Notified patient's son via phone of transportation time. SW remains available if any other needs concerns arise. Normal [facility] You are not granted access to view this sensitive note. Normal [facility] Insurance auth obtai shaina for [facility] nursing [facility], updated Dr Finch notified via [employer] Chat. Normal [facility] CBC W Auto Differential pane l (Bld)on 03-03-2023 Basophils (Bld) [#/Vol] 0.1 10*3/uL 0.0 - 0.2 10*3/uL [facility] Basophils/100 WBC (Bld) 0.6 % 0.0 - 2.0 % [facility] Eosinophils (Bld) [#/Vol] 0.4 10*3/uL 0.0 - 0.5 10*3/uL [facility] Eosinophils/100 WBC (Bld) 4.4 % 1.0 - 6.0 % [facility] Erythrocyte distribution width (RBC) [Ratio] 13.4 % 11.5 - 14.5 % [facility] Hematocrit (Bld) [Volume fraction] 35.5 % 35.0 - 47.0 % [facility] Hemoglobin (Bld) [Mass/Vol] 11.6 g/dL Low 11.7 - 16.0 g/dL [facility] Interpretation and review of laboratory results Abnormal [facility] Lymphocytes (Bld) [#/Vol] 2.0 10*3/uL 1.0 - 4.3 10*3/uL [facility] Lymphocytes/100 WBC (Bld) 22.6 % 20.0 - 40.0 % [facility] MCH (RBC) [Entitic mass] 27.7 pg 26.0 - 34.0 pg [facility] MCHC (RBC) [Mass/Vol] 32.7 % 32.0 - 36.0 % [facility] MCV (RBC) [Entitic vol] 84.8 fL 80.0 - 98.0 fL [facility] Monocytes (Bld) [#/Vol] 1.0 10*3/uL High 0.0 - 0.8 10*3/uL [facility] Monocytes/100 WBC (Bld) 11.6 % High 2.0 - 10.0 % [facility] Neutrophils (Bld) [#/Vol] 5.4 10*3/uL 1.8 - 7.0 10*3/uL [facility] Neutrophils/100 WBC (Bld) 60.8 % 40.0 - 80.0 % [facility] Nucleated RBC/100 WBC (Bld) [Ratio] 0.0 % [facility] Platelet mean volume (Bld) [Entitic vol] 7.9 fL 7.4 - 12.4 fL [facility] Platelets (Bld) [#/Vol] 257 10*3/uL 140 - 440 10*3/uL [facility] RBC (Bld) [#/Vol] 4.19 10*6/uL 3.8 - 5.20 10*6/uL [facility] WBC (Bld) [#/Vol] 9.0 10*3/uL 3.6 - 10.7 10*3/uL [facility] CBC WITH AUTO DIFFERENTIALon 03-03-2023 Basophils (Bld) [#/Vol] 0.1 10*3/uL Normal 0.0-0.2 [facility] Comment on above: Performed By: #### L [id number] ####Fender Mechanic Apprentice: MARTIN REYES ([phone])[facility] ([facility])[address] [place] [address] Basophils/100 WBC (Bld) 0.6 % Normal 0.0-2.0 [facility] Comment on above: Performed By: #### L [id number] ####Fender Mechanic Apprentice: MARTIN REYES ([phone])[facility] [facility] (SBHLAB)[address] Eosinophils (Bld) [#/Vol] 0.4 10*3/uL Normal 0.0-0.5 [facility] Comment on above: Performed By: #### L [id number] ####Fender Mechanic Apprentice: MARTIN REYES ([phone])[facility] [place] (SBHLAB)[address] Eosinophils/100 WBC (Bld) 4.4 % Normal 1.0-6.0 [facility] Comment on above: Performed By: #### L [id number] ####Fender Mechanic Apprentice: MARTIN REYES ([phone])[facility] [place] (SBHLAB)[address] Erythrocyte distribution width (RBC) [Ratio] 13.4 % Normal 11.5-14.5 [facility] Comment on above: Performed By: #### L [id number] ####Fender Mechanic Apprentice: MARTIN AMBROSEJOSE R ([phone])[facility] [place] (SBHLAB)[address] ERYTHROCYTE MEAN CORPUSCULAR HEMOGLOBIN CONCENTRATION (G/DL) BY AUTOMATED 32.7 % Normal 32.0-36.0 [facility] Comment on above: Performed By: #### L [id number] ####Fender Mechanic Apprentice: MARTIN AMBROSEJOSE R ([phone])[facility] [place] (SBHLAB)[address] Hematocrit (Bld) [Volume fraction] 35.5 % Normal 35.0-47.0 [facility] Comment on above: Performed By: #### L [id number] ####Fender Mechanic Apprentice: MARTIN REYES ([phone])[facility] [place] (SBHLAB)[address] Hemoglobin (Bld) [Mass/Vol] 11.6 g/dL Low 11.7-16.0 [facility] Comment on above: Performed By: #### L [id number] ####Fender Mechanic Apprentice: MARTIN REYES ([phone])[facility] (SBHLAB)[address] Lymphocytes (Bld) [#/Vol] 2.0 10*3/uL Normal 1.0-4.3 [facility] Comment on above: Performed By: #### L [id number] ####Fender Mechanic Apprentice: MARTIN REYES ([phone])[facility] (SBHLAB)[address] Lymphocytes/100 WBC (Bld) 22.6 % Normal 20.0-40.0 [facility] Comment on above: Performed By: #### L [id number] ####Fender Mechanic Apprentice: MARTIN AMBROSEJOSE R ([phone])[facility] (SBHLAB)[address] MCH (RBC) [Entitic mass] 27.7 pg Normal 26.0-34.0 [facility] Comment on above: Performed By: #### L [id number] ####Fender Mechanic Apprentice: MARTIN HUAWILFREDO ([phone])[facility] (SBHLAB)[address] [place] [address] MCV (RBC) [Entitic vol] 84.8 fL Normal 80.0-98.0 [facility] Comment on above: Performed By: #### L [id number] ####Fender Mechanic Apprentice: MARTIN REYES ([phone])[facility] (SBHLAB)[address] [place] [address] Monocytes (Bld) [#/Vol] 1.0 10*3/uL High 0.0-0.8 [facility] Comment on above: Performed By: #### L [id number] ####Fender Mechanic Apprentice: MARTIN REYES ([phone])[facility] [place] (SBHLAB)[address] [place] [address] [place] Monocytes/100 WBC (Bld) 11.6 % High 2.0-10.0 [facility] Comment on above: Performed By: #### L [id number] ####Fender Mechanic Apprentice: MARTIN REYES ([phone])[facility] (SBHLAB)[address] [place] [address] [place] Neutrophils (Bld) [#/Vol] 5.4 10*3/uL Normal 1.8-7.0 [facility] Comment on above: Performed By: #### L [id number] ####Fender Mechanic Apprentice: MARTIN REYES ([phone])[facility] [place] (SBHLAB)[address] Neutrophils/100 WBC (Bld) 60.8 % Normal 40.0-80.0 [facility] Comment on above: Performed By: #### L [id number] ####Fender Mechanic Apprentice: MARTIN REYES ([phone])[facility] [place] (SBHLAB)[address] NRBC (PER 100 WBCS) BY AUTOMATED COUNT 0.0 /100 WBCs Normal 0.0-2.0 [facility] Comment on above: Performed By: #### L [id number] ####Fender Mechanic Apprentice: MARTIN REYES ([phone])[facility] [place] (SBHLAB)[address] Platelet mean volume (Bld) [Entitic vol] 7.9 fL Normal 7.4-12.4 [facility] Comment on above: Performed By: #### L [id number] ####Fender Mechanic Apprentice: MARTIN REYES ([phone])[facility] [place] (SBHLAB)[address] [place] [address] [place] PLATELETS (10*3/UL) IN BLOOD AUTOMATED COUNT 257 10*3/uL Normal 140-440 [facility] Comment on above: Performed By: #### L [id number] ####Fender Mechanic Apprentice: MARTIN REYES ([phone])[facility] [place] (SBHLAB)[address] [place] [address] [place] RBC (Bld) [#/Vol] 4.19 10*6/uL Normal 3.8-5.20 [facility] Comment on above: Performed By: #### L [id number] ####Fender Mechanic Apprentice: MARTIN REYES ([phone])[facility] [place] (SBHLAB)[address] [place] [address] [place] WBC (Bld) [#/Vol] 9.0 10*3/uL Normal 3.6-10.7 [facility] Comment on above: Performed By: #### L [id number] ####Fender Mechanic Apprentice: MARTIN REYES ([phone])[facility] (SBHLAB)[address] COMPREHENSIVE METABOLIC PANE Real 03-03-2023 Albumin [Mass/Vol] 3.2 g/dL Low 3.5-5.0 [facility] Comment on above: Performed By: #### L [id number] ####Fender Mechanic Apprentice: MARTIN REYES ([phone])[facility] (SBHLAB)[address] ALP [Catalytic activity/Vol] 94 U/L Normal 38-126 [facility] Comment on above: Performed By: #### L [id number] ####Fender Mechanic Apprentice: MARTIN REYES ([phone])[facility] BAR[facility]RA[facility] (SBHLAB)[address] ALT [Catalytic activity/Vol] 12 U/L Normal 0-34 [facility] Comment on above: Performed By: #### L [id number] ####Fender Mechanic Apprentice: MARTIN REYES ([phone])[facility] (SBHLAB)[address] Anion gap [Moles/Vol] 2 mmol/L Low 3-13 [facility] Comment on above: Performed By: #### L AB17 ####Fender Mechanic Apprentice: MARTIN REYES ([phone])[facility] (SBHLAB)[address] AST [Catalytic activity/Vol] 34 U/L Normal 15-46 [facility] Comment on above: Performed By: #### L [id number] ####Fender Mechanic Apprentice: MARTIN REYES ([phone])[facility] (SBHLAB)[address] Bilirubin [Mass/Vol] 0.3 mg/dL Normal 0.2-1.3 [facility] Comment on above: Performed By: #### L [id number] ####Fender Mechanic Apprentice: MARTIN REYES ([phone])[facility] (SBHLAB)[address] Calcium [Mass/Vol] 8.1 mg/dL Low 8.4-10.4 [facility] Comment on above: Performed By: #### L [id number] ####Fender Mechanic Apprentice: MARTIN REYES ([phone])[facility] [place] (SBHLAB)[address] Chloride [Moles/Vol] 102 mmol/L Normal 98-107 [facility] Comment on above: Performed By: #### L [id number] ####Fender Mechanic Apprentice: MARTIN REYES ([phone])[facility] [place] (SBHLAB)[address] CO2 [Moles/Vol] 30 mmol/L Normal 22-30 [facility] Comment on above: Performed By: #### L AB17 ####Fender Mechanic Apprentice: MARTIN REYES ([phone])[facility] [place] (HLAB)[address] Creatinine [Mass/Vol] 0.82 mg/dL Normal 0.52-1.04 [facility] Comment on above: Performed By: #### L [id number] ####Fender Mechanic Apprentice: MARTIN REYES ([phone])[facility] [place] (SBHLAB)[address] GLOMERULAR FILTRATION RATE ML/MIN/1.73 SQ M.PREDICTED 72.9 mL/min/1.73m*2 Normal >60.0 [facility] Comment on above: Result Comment: Calc ulation based on the Chronic Kidney Disease Epidemiology Collaboration (CKD-EPI) equation refit without adjustment for race Performed By: #### L [id number] ####Fender Mechanic Apprentice: MARTIN REYES ([phone])[facility] [place] (SBHLAB)[address] [place] [address] [place] Glucose [Mass/Vol] 125 mg/dL High 70-100 [facility] Comment on above: Performed By: #### L [id number] ####Fender Mechanic Apprentice: MARTIN REYES ([phone])[facility] (SBHLAB)[address] Potassium [Moles/Vol] 3.7 mmol/L Normal 3.5-5.1 [facility] Comment on above: Performed By: #### L [id number] ####Fender Mechanic Apprentice: MARTIN REYES ([phone])[facility] (SBHLAB)[address] Protein [Mass/Vol] 6.2 g/dL Low 6.3-8.2 [facility] Comment on above: Performed By: #### L [id number] ####Fender Mechanic Apprentice: MARTIN REYES ([phone])[facility] (SBHLAB)[address] Sodium [Moles/Vol] 134 mmol/L Low 135-145 [facility] Comment on above: Performed By: #### L [id number] ####Fender Mechanic Apprentice: MARTIN REYES ([phone])[facility] (SBHLAB)[address] Urea nitrogen [Mass/Vol] 15 mg/dL Normal 7-17 [facility] Comment on above: Performed By: #### L AB17 ####Fender Mechanic Apprentice: MARTIN REYES ([phone])[facility] (SBHLAB)[address] Comprehensive metabolic 1998 panelon 03-03-2023 Albumin [Mass/Vol] 3.2 g/dL Low 3.5 - 5.0 g/dL [facility] ALP [Catalytic activity/Vol] 94 U/L 38 - 126 U/L [facility] ALT [Catalytic activity/Vol] 12 U/L 0 - 34 U/L [facility] Anion gap [Moles/Vol] 2 mmol/L Low 3 - 13 mmol/L [facility] AST [Catalytic activity/Vol] 34 U/L 15 - 46 U/L [facility] Bilirubin [Mass/Vol] 0.3 mg/dL 0.2 - 1 .3 mg/dL [facility] Calcium [Mass/Vol] 8.1 mg/dL Low 8.4 - 10. 4 mg/dL [facility] Chloride [Moles/Vol] 102 mmol/L 98 - 10 7 mmol/L [facility] CO2 [Moles/Vol] 30 mmol/L 22 - 30 mmol/L [facility] Creatinine [Mass/Vol] 0.82 mg/dL 0.52 - 1.04 mg/dL [facility] GFR/1.73 sq M.predicted MDRD (S/P/Bld) [Vol rate/Area] 72.9 mL/min/{1.73_m2} - PINF [facility] Comment on above: Calculation based on the Chronic Kidney Disease Epidemiology Collaboration (CKD-EPI) equation refit without adjustment for race Glucose [Mass/Vol] 125 mg/dL High 70 - 100 mg/dL [facility] Interpretation and review of laboratory results Abnormal [facility] Potassium [Moles/Vol] 3.7 mmol/L 3.5 - 5.1 mmol/L [facility] Protein [Mass/Vol] 6.2 g/dL Low 6.3 - 8.2 g/dL [facility] Sodium [Moles/Vol] 134 mmol/L Low 135 - 145 mmol/L [facility] Urea nitrogen [Mass/Vol] 15 mg/dL 7 - 17 mg/dL [facility] POCT glucose meteron 023 Glucose [Mass/Vol] 215 mg/dL High 70 - 100 mg/dL [facility] Interpretation and review of laboratory results Abnormal [facility] Performed by: [facility], [address] [place] [id number] CLIA ID: [id number] [facility] Glucose [Mass/Vol] 158 mg/dL High 70 - 100 mg/dL [facility] Interpretation and review of laboratory results Abnormal [facility] Performed by: [facility], [address] [facility] [address] CLIA ID: [id number] [facility] Progress Noteon 03-03-2023 Progress Note Discharged via ambulance to [facility] Progress Note Report called to carolina garcia at [facility] at [phone] Normal [facility] Urine cultureOrdered By: Sanford Dillon on 03-03-2023 Bacteria identified Cx Nom (U) >100,000 CFU/mL Escherichia coli Abnormal [facility] 25-hydroxyvitamin D3 [Mass/V ol]on 03-02-2023 Therapy is based on measurement of Total 25-OHD with the following classification levels: Less than 20 ng/mL: Indicative of Vit D deficiency 20-30 ng/mL: Suggests Vit D insufficiency Optimal: Greater than or equal to 30 ng/mL Test performed by [employer] Immunoassay, measuring Total Vitamin D, not individual fractions. [facility] CARECOORDon 03-02-2023 CARECOORD Received a call from Rafaela at [facility], they are able to accept, pt agreeable. 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 time Normal [facility] CBC W Auto Differential pane l (Bld)Ordered By: Wendy Bruce on 03-02-2023 Basophils (Bld) [#/Vol] 0.1 10*3/uL 0.0 - 0.2 10*3/uL [facility] Basophils/100 WBC (Bld) 0.7 % 0.0 - 2.0 % [facility] Eosinophils (Bld) [#/Vol] 0.4 10*3/uL 0.0 - 0.5 10*3/uL [facility] Eosinophils/100 WBC (Bld) 3.9 % 1.0 - 6.0 % [facility] Erythrocyte distribution width (RBC) [Ratio] 13.7 % 11.5 - 14.5 % [facility] Hematocrit (Bld) [Volume fraction] 36.1 % 35.0 - 47.0 % [facility] Hemoglobin (Bld) [Mass/Vol] 11.9 g/dL 11.7 - 16.0 g/dL [facility] Interpretation and review of laboratory results Abnormal [facility] Lymphocytes (Bld) [#/Vol] 1.9 10*3/uL 1.0 - 4.3 10*3/uL [facility] Lymphocytes/100 WBC (Bld) 20.1 % 20.0 - 40.0 % [facility] MCH (RBC) [Entitic mass] 28.5 pg 26.0 - 34.0 pg [facility] MCHC (RBC) [Mass/Vol] 32.8 % 32.0 - 36.0 % [facility] MCV (RBC) [Entitic vol] 86.8 fL 80.0 - 98.0 fL [facility] Monocytes (Bld) [#/Vol] 1.1 10*3/uL High 0.0 - 0.8 10*3/uL [facility] Monocytes/100 WBC (Bld) 11.4 % High 2.0 - 10.0 % [facility] Neutrophils (Bld) [#/Vol] 6.1 10*3/uL 1.8 - 7.0 10*3/uL [facility] Neutrophils/100 WBC (Bld) 63.9 % 40.0 - 80.0 % [facility] Nucleated RBC/100 WBC (Bld) [Ratio] 0.1 % [facility] Platelet mean volume (Bld) [Entitic vol] 8.4 fL 7.4 - 12.4 fL [facility] Platelets (Bld) [#/Vol] 252 10*3/uL 140 - 440 10*3/uL [facility] RBC (Bld) [#/Vol] 4.16 10*6/uL 3.8 - 5.20 10*6/uL [facility] WBC (Bld) [#/Vol] 9.5 10*3/uL 3.6 - 10.7 10*3/uL [facility] CBC WITH AUTO DIFFERENTIALon 03-02-2023 Basophils (Bld) [#/Vol] 0.1 10*3/uL Normal 0.0-0.2 [facility] Comment on above: Performed By: #### L [id number] ####Fender Mechanic Apprentice: MARTIN REYES ([phone])[facility]HIODiony [place] ([facility])[address] [place] [address] Basophils/100 WBC (Bld) 0.7 % Normal 0.0-2.0 [facility] Comment on above: Performed By: #### L [id number] ####Fender Mechanic Apprentice: MARTIN REYES ([phone])[facility] [place] (SBHLAB)[address] Eosinophils (Bld) [#/Vol] 0.4 10*3/uL Normal 0.0-0.5 [facility] Comment on above: Performed By: #### L [id number] ####Fender Mechanic Apprentice: MARTIN REYES ([phone])[facility] [place] (SBHLAB)[address] Eosinophils/100 WBC (Bld) 3.9 % Normal 1.0-6.0 [facility] Comment on above: Performed By: #### L [id number] ####Fender Mechanic Apprentice: MARTIN REYES ([phone])[facility] [place] (SBHLAB)[address] [place] [address] Erythrocyte distribution width (RBC) [Ratio] 13.7 % Normal 11.5-14.5 [facility] Comment on above: Performed By: #### L [id number] ####Fender Mechanic Apprentice: MARTIN REYES ([phone])[facility] [place] (SBHLAB)[address] [place] [address] ERYTHROCYTE MEAN CORPUSCULAR HEMOGLOBIN CONCENTRATION (G/DL) BY AUTOMATED 32.8 % Normal 32.0-36.0 [facility] Comment on above: Performed By: #### L [id number] ####Fender Mechanic Apprentice: MARTIN REYES ([phone])[facility] (SBHLAB)[address] [place] [address] Hematocrit (Bld) [Volume fraction] 36.1 % Normal 35.0-47.0 [facility] Comment on above: Performed By: #### L [id number] ####Fender Mechanic Apprentice: MARTIN REYES ([phone])[facility] [place] (SBHLAB)[address] [place] [address] Hemoglobin (Bld) [Mass/Vol] 11.9 g/dL Normal 11.7-16.0 [facility] Comment on above: Performed By: #### L [id number] ####Fender Mechanic Apprentice: MARTIN REYES ([phone])[facility] [place] (SBHLAB)[address] Lymphocytes (Bld) [#/Vol] 1.9 10*3/uL Normal 1.0-4.3 [facility] Comment on above: Performed By: #### L [id number] ####Fender Mechanic Apprentice: MARTIN REYES ([phone])[facility] (SBHLAB)[address] Lymphocytes/100 WBC (Bld) 20.1 % Normal 20.0-40.0 [facility] Comment on above: Performed By: #### L [id number] ####Fender Mechanic Apprentice: MARTIN REYES ([phone])[facility] (SBHLAB)[address] MCH (RBC) [Entitic mass] 28.5 pg Normal 26.0-34.0 [facility] Comment on above: Performed By: #### L [id number] ####Fender Mechanic Apprentice: MARTIN REYES ([phone])[facility] (SBHLAB)[address] MCV (RBC) [Entitic vol] 86.8 fL Normal 80.0-98.0 [facility] Comment on above: Performed By: #### L [id number] ####Fender Mechanic Apprentice: MARTIN REYES ([phone])[facility] (SBHLAB)[address] [place] [address] [place] Monocytes (Bld) [#/Vol] 1.1 10*3/uL High 0.0-0.8 [facility] Comment on above: Performed By: #### L [id number] ####Fender Mechanic Apprentice: MARTIN REYES ([phone])[facility] (SBHLAB)[address] [place] [address] [place] Monocytes/100 WBC (Bld) 11.4 % High 2.0-10.0 [facility] Comment on above: Performed By: #### L [id number] ####Fender Mechanic Apprentice: MARTIN FLEMINGCER ([phone])[facility] [place] (SBHLAB)[address] Neutrophils (Bld) [#/Vol] 6.1 10*3/uL Normal 1.8-7.0 [facility] Comment on above: Performed By: #### L [id number] ####Fender Mechanic Apprentice: MARTIN ERIC ([phone])[facility] [place] (SBHLAB)[address] Neutrophils/100 WBC (Bld) 63.9 % Normal 40.0-80.0 [facility] Comment on above: Performed By: #### L [id number] ####Fender Mechanic Apprentice: MARTIN ERIC ([phone])[facility] [place] (SBHLAB)[address] NRBC (PER 100 WBCS) BY AUTOMATED COUNT 0.1 /100 WBCs Normal 0.0-2.0 [facility] Comment on above: Performed By: #### L [id number] ####Fender Mechanic Apprentice: MARTIN AMBROSEJOSE R ([phone])[facility] [place] (SBHLAB)[address] Platelet mean volume (Bld) [Entitic vol] 8.4 fL Normal 7.4-12.4 [facility] Comment on above: Performed By: #### L [id number] ####Fender Mechanic Apprentice: MARTIN AMBROSEJOSE R ([phone])[facility] [place] (SBHLAB)[address] [place] [address] [place] PLATELETS (10*3/UL) IN BLOOD AUTOMATED COUNT 252 10*3/uL Normal 140-440 [facility] Comment on above: Performed By: #### L [id number] ####Fender Mechanic Apprentice: MARTIN AMBROSEJOSE R ([phone])[facility] [place] (SBHLAB)[address] [place] [address] [place] RBC (Bld) [#/Vol] 4.16 10*6/uL Normal 3.8-5.20 [facility] Comment on above: Performed By: #### L [id number] ####Fender Mechanic Apprentice: MARTIN REYES ([phone])[facility] YASHBRAINN (SBHLAB)[address] WBC (Bld) [#/Vol] 9.5 10*3/uL Normal 3.6-10.7 [facility] Comment on above: Performed By: #### L [id number] ####Fender Mechanic Apprentice: MARTIN REYES ([phone])[facility] (SBHLAB)[address] COMPREHENSIVE METABOLIC PANE Real 03-02-2023 Albumin [Mass/Vol] 3.1 g/dL Low 3.5-5.0 [facility] Comment on above: Performed By: #### Eduardo TEAGUE, LAB17, [id number] ####Fender Mechanic Apprentice: MARTIN REYES ([phone])[facility] (SBHLAB)[address] ALP [Catalytic activity/Vol] 100 U/L Normal 38-126 [facility] Comment on above: Performed By: #### Eduardo TEAGUE, LAB17, [id number] ####Fender Mechanic Apprentice: MARTIN REYES ([phone])[facility] (SBHLAB)[address] ALT [Catalytic activity/Vol] 13 U/L Normal 0-34 [facility] Comment on above: Performed By: #### Eduardo TEAGUE, LAB17, [id number] ####Fender Mechanic Apprentice: MARTIN REYES ([phone])[facility]ASHBRA[facility]N (SBHLAB)[address] Anion gap [Moles/Vol] 3 mmol/L Normal 3-13 [facility] Comment on above: Performed By: #### L ZAHIDA, LAB17, [id number] ####Fender Mechanic Apprentice: MARTIN REYES ([phone])[facility] (SBHLAB)[address] AST [Catalytic activity/Vol] 22 U/L Normal 15-46 [facility] Comment on above: Performed By: #### Eduardo TEAGUE, LAB17, [id number] ####Fender Mechanic Apprentice: MARTIN REYES ([phone])[facility] YINGN (SBHLAB)[address] Bilirubin [Mass/Vol] 0.4 mg/dL Normal 0.2-1.3 [facility] Comment on above: Performed By: #### Eduardo TEAGUE, LAB17, [id number] ####Fender Mechanic Apprentice: MARTIN REYES ([phone])[facility] (SBHLAB)[address] Calcium [Mass/Vol] 8.4 mg/dL Normal 8.4-10.4 [facility] Comment on above: Performed By: #### Eduardo TEAGUE, LAB17, [id number] ####Fender Mechanic Apprentice: MARTIN REYES ([phone])[facility] (SB[facility]AB)[address] Chloride [Moles/Vol] 105 mmol/L Normal 98-107 [facility] Comment on above: Performed By: #### Eduardo TEAGUE, LAB17, [id number] ####Fender Mechanic Apprentice: MARTIN REYES ([phone])[facility] (SB[facility]AB)[address] CO2 [Moles/Vol] 27 mmol/L Normal 22-30 [facility] Comment on above: Performed By: #### Eduardo TEAGUE, LAB17, [id number] ####Fender Mechanic Apprentice: MARTIN REYES ([phone])[facility] (SB[facility]AB)[address] Creatinine [Mass/Vol] 0.77 mg/dL Normal 0.52-1.04 [facility] Comment on above: Performed By: #### Eduardo TEAGUE, LAB17, [id number] ####Fender Mechanic Apprentice: MARTIN REYES ([phone])[facility] (SB[facility]AB)[address] GLOMERULAR FILTRATION RATE ML/MIN/1.73 SQ M.PREDICTED 78.6 mL/min/1.73m*2 Normal >60.0 [facility] Comment on above: Result Comment: Calc ulation based on the Chronic Kidney Disease Epidemiology Collaboration (CKD-EPI) equation refit without adjustment for race Performed By: #### Eduardo TEAGUE, LAB17, [id number] ####Fender Mechanic Apprentice: MARTIN REYES ([phone])[facility] (SBHLAB)[address] Glucose [Mass/Vol] 97 mg/dL Normal 70-100 [facility] Comment on above: Performed By: #### Eduardo TEAGUE, LAB17, [id number] ####Fender Mechanic Apprentice: MARTIN REYES ([phone])[facility] (SBHLAB)[address] Potassium [Moles/Vol] 4.1 mmol/L Normal 3.5-5.1 [facility] Comment on above: Performed By: #### Eduardo TEAGUE, LAB17, [id number] ####Fender Mechanic Apprentice: MARTIN REYES ([phone])[facility] (SBHLAB)[address] Protein [Mass/Vol] 5.8 g/dL Low 6.3-8.2 [facility] Comment on above: Performed By: #### Eduardo TEAGUE, LAB17, [id number] ####Fender Mechanic Apprentice: MARTIN REYES ([phone])[facility] (SBHLAB)[address] [place] [address] [place] Sodium [Moles/Vol] 135 mmol/L Normal 135-145 [facility] Comment on above: Performed By: #### Eduardo TEAGUE, LAB17, [id number] ####Fender Mechanic Apprentice: MARTIN REYES ([phone])[facility] (SBHLAB)[address] Urea nitrogen [Mass/Vol] 15 mg/dL Normal 7-17 [facility] Comment on above: Performed By: #### L AB127, LAB17, [id number] ####Fender Mechanic Apprentice: MARTIN REYES ([phone])[facility] (SBHLAB)[address] [place] [address] Comprehensive metabolic 1998 panelon 03-02-2023 Albumin [Mass/Vol] 3.1 g/dL Low 3.5 - 5.0 g/dL [facility] ALP [Catalytic activity/Vol] 100 U/L 38 - 126 U/L [facility] ALT [Catalytic activity/Vol] 13 U/L 0 - 34 U/L [facility] Anion gap [Moles/Vol] 3 mmol/L 3 - 13 mmol/L [facility] AST [Catalytic activity/Vol] 22 U/L 15 - 46 U/L [facility] Bilirubin [Mass/Vol] 0.4 mg/dL 0.2 - 1 .3 mg/dL [facility] Calcium [Mass/Vol] 8.4 mg/dL 8.4 - 10. 4 mg/dL [facility] Chloride [Moles/Vol] 105 mmol/L 98 - 10 7 mmol/L [facility] CO2 [Moles/Vol] 27 mmol/L 22 - 30 mmol/L [facility] Creatinine [Mass/Vol] 0.77 mg/dL 0.52 - 1.04 mg/dL [facility] GFR/1.73 sq M.predicted MDRD (S/P/Bld) [Vol rate/Area] 78.6 mL/min/{1.73_m2} - PINF [facility] Comment on above: Calculation based on the Chronic Kidney Disease Epidemiology Collaboration (CKD-EPI) equation refit without adjustment for race Glucose [Mass/Vol] 97 mg/dL 70 - 100 mg/dL [facility] Interpretation and review of laboratory results Abnormal [facility] Potassium [Moles/Vol] 4.1 mmol/L 3.5 - 5.1 mmol/L [facility] Protein [Mass/Vol] 5.8 g/dL Low 6.3 - 8.2 g/dL [facility] Sodium [Moles/Vol] 135 mmol/L 135 - 145 mmol/L [facility] Urea nitrogen [Mass/Vol] 15 mg/dL 7 - 17 mg/dL [facility] FREE T4on 03-02-2023 Free T4 [Mass/Vol] 3.28 ng/dL High 0.78-2.19 [facility] Comment on above: Performed By: #### L AB127, LAB17, [id number] ####Fender Mechanic Apprentice: MARTIN REYES ([phone])[facility] (SBHLAB)[address] [place] [address] Free T4 [Mass/Vol]on 023 Free T4 Dialysis [Mass/Vol] 3.28 ng/dL High 0.78 - 2.19 ng/dL [facility] UEIS No Panel Informationon 03-02 Interpretation and review of laboratory results Abnormal [facility] POCT glucose meteron 023 Glucose [Mass/Vol] 175 mg/dL High 70 - 100 mg/dL [facility] Interpretation and review of laboratory results Abnormal [facility] Performed by: [facility], [address] [place] [address] CLIA ID: [id number] [facility] UEIS [facility] Glucose [Mass/Vol] 214 mg/dL High 70 - 100 mg/dL [facility] Interpretation and review of laboratory results Abnormal [facility] Performed by: [facility], [address] [place] [address] CLIA ID: [id number] [facility] UEIS Glucose [Mass/Vol] 141 mg/dL High 70 - 100 mg/dL [facility] Interpretation and review of laboratory results Abnormal [facility] Performed by: [facility], [address] [place] [address] CLIA ID: [id number] [facility] Progress Noteon 03-02-2023 Progress Note Department of Disaster Recovery Coordinator al Medicine Division of Endocrinology, Diabetes, & Metabolism Endocrinology Note Patient Name: Radha Sandoval : 1945 AGE: 77 y.o. Room[facility]Bed: [facility] A Admission Date: 02/28/2023 Visit Date: 03/02/2023 Reason for Endocrine Consult: DM-Uncontrolled Provider/Team Requesting Consult: Dr. 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 She has been having diarrhea in 2017-8130, smt severe Glimepiride- started in 2015 Trulicity [...] OBJECTIVE: Vitals: 03/01/23 0834 03/01/23 0838 03/01/23203003/02/23 08 BP: (!) 159/54 (!) 151/81 BP Location: Right arm Right arm Patient Position: Lying Sitting Pulse: 78 80 75 78 Resp: 17 18 Temp: 36.6 ?C (97.8 ?F) 37.2 ?C (98.9 ?F) 37.3 ?C (99.2 ?F) TempSrc: Temporal Temporal Temporal SpO2: 93% 93% 95% 93% Physical Exam Vitals and nursing note reviewed. Hattie (more content not included)... Normal [facility] Progress Note Occupational Therapy OCCUPATIONAL THERAPY [facility] & ED's Treatment Note Name/MRN: Radha Sandoval ([id number]) Date of : 1945 Age: 77 y.o. [...] chronic pain from previous shoulder surgery. Pt david's approx 60 degrees shoulder flexion, RUE approx 80 degrees; distally WFL. Bed Mobility Supine to sit: Min Assist Sit to supine: Min Assist Scooting: SBA HOB elevated, pt david's supine to sit EOB with Min A for upper trunk, Min A for BLEs for sit to supine, use of bedrail, with pt preference to exit to R side of bed. Transfers/Mobility Sit to stand: Contact Guard Stand to sit: Contact Guard Toilet: Contact Guard Sitting balance: SBA Standing balance: Contact Guard Functional mobility: Contact Guard Pt david's functional transfers with SPC with CGA, toilet [...] (x1 ther act, x1 self care) Margaret Altamirano, OT POC supervision transferred to rehab service department Occupational Therapist Normal [facility] Progress Note [facility] Geriatric Medicine Inpatient Consult Service Admission Date: 02/28/2023 Assessment Principal Problem: LING (acute kidney injury) ([facility]/HCC) ([facility]) Active Problems: Declining functional status Weakness Anxiety Polypharmacy DNR (do not resuscitate) Insomnia Plan Declining functional status -Related to physical deconditioning, UTI, advanced age, diabetes type 2 -Continue PT/OT as able while inpatient -Anticipate d/c to SNF for ongoing daily PT/OT, patient agreeable to go to [facility] Weakness -Multiple risk factors including weakness, [...] you Subjective Chief Complaint: low back pain/dysuria/polyuria/w tra Geriatrics consulted for "functional decline" HPI- The [...] contact guard. Ambulated 30 ft x2. Recommending nursing home facility . Review of Systems Constitutional: Negative [...] 2 pu (more content not included)... Normal [facility] Progress Note Nutrition rescreen completed. Pt referred to RD for uncontrolled DM, and nutrition supplement per Wound Care. Normal [facility] VITAMIN D DEFICIENCY SCREENI NG (VIT D 25)on 03-02-2023 VIT D 25-OH, TOTAL 17 ng/mL Low 30-100 [facility] Comment on above: Result Comment: LISA Mejia COMMENTS: Therapy is based on measurement of Total 25-OHD with the following classification levels: Less than 20 ng/mL: Indicative of Vit D deficiency 20-30 ng/mL: Suggests Vit D insufficiency Optimal: Greater than or equal to 30 ng/mL Test performed by [employer] Immunoassay, measuring Total Vitamin D, not individual fractions. Performed By: #### L AB127, LAB17, [id number] ####Fender Mechanic Apprentice: MARTIN REYES ([phone])[facility] ([facility] [place] [address] Vitamin D Deficiency Screeni ng (Vit D 25)on 03-02-2023 25-hydroxyvitamin D3 [Mass/Vol] 17 ng/mL Low 30 - 100 ng/mL [facility] [id number] 03-01-2023 [id number] Machine Stamper following case for Discharge Needs. Therapy states SNF, but Patient wants HC instead. Normal [facility] CARECOORDon 03-01-2023 [facility] Care Managment Initi al Assessment Date: 03/01/2023 Patient Name: Radha Sandoval : 1945 Patient Information Source of Information: Patient Cognition/Language: WFL - Within Functional Limits Permission given to speak with patient territory service representative/caregive r as indicated: Yes Confirmation of Payer with patient/family: Yes Payer Name: [employer] : No Confirmation of Primary Care Physician: Confirmed PCP Name: Ojhn Seen in last 2 years?: Yes Primary [...] Prescription Coverage: Yes Pharmacy Used: [facility] [place] Medication Management: Independent Transportation/Shopping : Independent Transportation [...] in SNF but would be able to [facility]. ROXANA liaison following, TCC to assist and follow as needed. Laura Jackson RN Normal [facility] CBC W Auto Differential pane l (Bld)Ordered By: Rosey Viera on 03-01-2023 Basophils (Bld) [#/Vol] 0.1 10*3/uL 0.0 - 0.2 10*3/uL [facility] Basophils/100 WBC (Bld) 0.6 % 0.0 - 2.0 % [facility] Eosinophils (Bld) [#/Vol] 0.2 10*3/uL 0.0 - 0.5 10*3/uL [facility] Eosinophils/100 WBC (Bld) 1.4 % 1.0 - 6.0 % [facility] Erythrocyte distribution width (RBC) [Ratio] 13.6 % 11.5 - 14.5 % [facility] Hematocrit (Bld) [Volume fraction] 34.9 % Low 35.0 - 47.0 % [facility] Hemoglobin (Bld) [Mass/Vol] 11.5 g/dL Low 11.7 - 16.0 g/dL [facility] Interpretation and review of laboratory results Abnormal [facility] Lymphocytes (Bld) [#/Vol] 1.7 10*3/uL 1.0 - 4.3 10*3/uL [facility] Lymphocytes/100 WBC (Bld) 12.6 % Low 20.0 - 40.0 % [facility] MCH (RBC) [Entitic mass] 28.7 pg 26.0 - 34.0 pg [facility] MCHC (RBC) [Mass/Vol] 33.0 % 32.0 - 36.0 % [facility] MCV (RBC) [Entitic vol] 87.1 fL 80.0 - 98.0 fL [facility] Monocytes (Bld) [#/Vol] 1.5 10*3/uL High 0.0 - 0.8 10*3/uL [facility] Monocytes/100 WBC (Bld) 10.8 % High 2.0 - 10.0 % [facility] Neutrophils (Bld) [#/Vol] 10.3 10*3/uL High 1.8 - 7.0 10*3/uL [facility] Neutrophils/100 WBC (Bld) 74.6 % 40.0 - 80.0 % [facility] Nucleated RBC/100 WBC (Bld) [Ratio] 0.0 % [facility] Platelet mean volume (Bld) [Entitic vol] 8.5 fL 7.4 - 12.4 fL [facility] Platelets (Bld) [#/Vol] 271 10*3/uL 140 - 440 10*3/uL [facility] RBC (Bld) [#/Vol] 4.00 10*6/uL 3.8 - 5.20 10*6/uL [facility] WBC (Bld) [#/Vol] 13.8 10*3/uL High 3.6 - 10.7 10*3/uL [facility] CBC WITH AUTO DIFFERENTIALon 03-01-2023 Basophils (Bld) [#/Vol] 0.1 10*3/uL Normal 0.0-0.2 [facility] Comment on above: Performed By: #### L [id number] ####Fender Mechanic Apprentice: MARTIN REYES ([phone])[facility] (SBHLAB)[address] [place] [address] Basophils/100 WBC (Bld) 0.6 % Normal 0.0-2.0 [facility] Comment on above: Performed By: #### L [id number] ####Fender Mechanic Apprentice: MARTIN REYES ([phone])[facility] (SB[facility])[address] [place] [address] Eosinophils (Bld) [#/Vol] 0.2 10*3/uL Normal 0.0-0.5 [facility] Comment on above: Performed By: #### L [id number] ####Fender Mechanic Apprentice: MARTIN REYES ([phone])[facility] (SBHLAB)[address] Eosinophils/100 WBC (Bld) 1.4 % Normal 1.0-6.0 [facility] Comment on above: Performed By: #### L [id number] ####Fender Mechanic Apprentice: MARTIN REYES ([phone])[facility] (SBHLAB)[address] [place] [address] Erythrocyte distribution width (RBC) [Ratio] 13.6 % Normal 11.5-14.5 [facility] Comment on above: Performed By: #### L [id number] ####Fender Mechanic Apprentice: MARTIN REYES ([phone])[facility] (SBHLAB)[address] ERYTHROCYTE MEAN CORPUSCULAR HEMOGLOBIN CONCENTRATION (G/DL) BY AUTOMATED 33.0 % Normal 32.0-36.0 [facility] Comment on above: Performed By: #### L [id number] ####Fender Mechanic Apprentice: MARTIN REYES ([phone])[facility] (SBHLAB)[address] Hematocrit (Bld) [Volume fraction] 34.9 % Low 35.0-47.0 [facility] Comment on above: Performed By: #### L [id number] ####Fender Mechanic Apprentice: MARTIN REYES ([phone])[facility] [place] (SBHLAB)[address] Hemoglobin (Bld) [Mass/Vol] 11.5 g/dL Low 11.7-16.0 [facility] Comment on above: Performed By: #### L [id number] ####Fender Mechanic Apprentice: MARTIN REYES ([id number])[facility] [place] (SBHLAB)[address] [place] [address] Lymphocytes (Bld) [#/Vol] 1.7 10*3/uL Normal 1.0-4.3 [facility] Comment on above: Performed By: #### L [id number] ####Fender Mechanic Apprentice: MARTIN REYES ([phone])[facility] (SBHLAB)[address] [place] [address] [place] Lymphocytes/100 WBC (Bld) 12.6 % Low 20.0-40.0 [facility] Comment on above: Performed By: #### L [id number] ####Fender Mechanic Apprentice: MARTIN REYES ([phone])[facility] (SBHLAB)[address] MCH (RBC) [Entitic mass] 28.7 pg Normal 26.0-34.0 [facility] Comment on above: Performed By: #### L [id number] ####Fender Mechanic Apprentice: MARTIN REYES ([phone])[facility] (SBHLAB)[address] MCV (RBC) [Entitic vol] 87.1 fL Normal 80.0-98.0 [facility] Comment on above: Performed By: #### L [id number] ####Fender Mechanic Apprentice: MARTIN REYES ([phone])[facility] (SBHLAB)[address] [place] [address] [place] Monocytes (Bld) [#/Vol] 1.5 10*3/uL High 0.0-0.8 [facility] Comment on above: Performed By: #### L [id number] ####Fender Mechanic Apprentice: MARTIN REYES ([phone])[facility] (SBHLAB)[address] Monocytes/100 WBC (Bld) 10.8 % High 2.0-10.0 [facility] Comment on above: Performed By: #### L [id number] ####Fender Mechanic Apprentice: MARTIN REYES ([phone])[facility] (SBHLAB)[address] [place] [address] [place] Neutrophils (Bld) [#/Vol] 10.3 10*3/uL High 1.8-7.0 [facility] Comment on above: Performed By: #### L [id number] ####Fender Mechanic Apprentice: MARTIN REYES ([phone])[facility] (SBHLAB)[address] [place] [address] [place] Neutrophils/100 WBC (Bld) 74.6 % Normal 40.0-80.0 [facility] Comment on above: Performed By: #### L [id number] ####Fender Mechanic Apprentice: MARTIN REYES ([phone])[facility] (SBHLAB)[address] NRBC (PER 100 WBCS) BY AUTOMATED COUNT 0.0 /100 WBCs Normal 0.0-2.0 [facility] Comment on above: Performed By: #### L [id number] ####Fender Mechanic Apprentice: MARTIN REYES ([phone])[facility] ([facility])[address] Platelet mean volume (Bld) [Entitic vol] 8.5 fL Normal 7.4-12.4 [facility] Comment on above: Performed By: #### L [id number] ####Fender Mechanic Apprentice: MARTIN REYES ([phone])[facility] (SBHLAB)[address] PLATELETS (10*3/UL) IN BLOOD AUTOMATED COUNT 271 10*3/uL Normal 140-440 [facility] Comment on above: Performed By: #### L [id number] ####Fender Mechanic Apprentice: MARTIN REYES ([phone])[facility] (SBHLAB)[address] RBC (Bld) [#/Vol] 4.00 10*6/uL Normal 3.8-5.20 [facility] Comment on above: Performed By: #### L [id number] ####Fender Mechanic Apprentice: MARTIN REYES ([phone])[facility] (SBHLAB)[address] [place] [address] [place] WBC (Bld) [#/Vol] 13.8 10*3/uL High 3.6-10.7 [facility] Comment on above: Performed By: #### L [id number] ####Fender Mechanic Apprentice: MARTIN REYES ([phone])[facility] (SBHL[facility])[address] COMPREHENSIVE METABOLIC PANE Real 03-01-2023 Albumin [Mass/Vol] 3.1 g/dL Low 3.5-5.0 [facility] Comment on above: Performed By: #### L [id number] ####Fender Mechanic Apprentice: MARTIN REYES ([phone])[facility] (SBHLAB)[address] ALP [Catalytic activity/Vol] 102 U/L Normal 38-126 [facility] Comment on above: Performed By: #### L AB17 ####Fender Mechanic Apprentice: MARTIN REYES ([phone])[facility] ([facility])[address] ALT [Catalytic activity/Vol] 16 U/L Normal 0-34 [facility] Comment on above: Performed By: #### L AB17 ####Fender Mechanic Apprentice: MARTIN REYES ([phone])[facility] (SBHLAB)[address] Anion gap [Moles/Vol] 9 mmol/L Normal 3-13 [facility] Comment on above: Performed By: #### L AB17 ####Fender Mechanic Apprentice: MARTIN REYES ([phone])[facility] (SBHLAB)[address] AST [Catalytic activity/Vol] 24 U/L Normal 15-46 [facility] Comment on above: Performed By: #### L AB17 ####Fender Mechanic Apprentice: MARTIN REYES ([phone])[facility] (SBHLAB)[address] Bilirubin [Mass/Vol] 0.4 mg/dL Normal 0.2-1.3 [facility] Comment on above: Performed By: #### L AB17 ####Fender Mechanic Apprentice: MARTIN REYES ([phone])[facility] (SBHLAB)[address] [place] [address] [place] Calcium [Mass/Vol] 8.3 mg/dL Low 8.4-10.4 [facility] Comment on above: Performed By: #### L [id number] ####Fender Mechanic Apprentice: MARTIN REYES ([phone])[facility] ([facility])[address] Chloride [Moles/Vol] 102 mmol/L Normal 98-107 [facility] Comment on above: Performed By: #### L AB17 ####Fender Mechanic Apprentice: MARTIN REYES ([phone])[facility] (SBHLAB)[address] CO2 [Moles/Vol] 26 mmol/L Normal 22-30 [facility] Comment on above: Performed By: #### L AB17 ####Fender Mechanic Apprentice: MARTIN REYES ([phone])[facility] (SBHLAB)[address] Creatinine [Mass/Vol] 0.96 mg/dL Normal 0.52-1.04 [facility] Comment on above: Performed By: #### L AB17 ####Fender Mechanic Apprentice: MARTIN REYES ([phone])[facility] (SBHLAB)[address] GLOMERULAR FILTRATION RATE ML/MIN/1.73 SQ M.PREDICTED 60.3 mL/min/1.73m*2 Normal >60.0 [facility] Comment on above: Result Comment: Calc ulation based on the Chronic Kidney Disease Epidemiology Collaboration (CKD-EPI) equation refit without adjustment for race Performed By: #### L [id number] ####Fender Mechanic Apprentice: MARTIN REYES ([phone])[facility] (SBHLAB)[address] Glucose [Mass/Vol] 123 mg/dL High 70-100 [facility] Comment on above: Performed By: #### L AB17 ####Fender Mechanic Apprentice: MARTIN REYES ([id number])[facility] (SBHLAB)[address] Potassium [Moles/Vol] 4.3 mmol/L Normal 3.5-5.1 [facility] Comment on above: Performed By: #### L AB17 ####Fender Mechanic Apprentice: MARTIN REYES ([phone])[facility] (SBHLAB)[address] Protein [Mass/Vol] 6.0 g/dL Low 6.3-8.2 [facility] Comment on above: Performed By: #### L [id number] ####Fender Mechanic Apprentice: MARTIN HUAWILFREDO ([phone])[facility] ([facility])[address] Sodium [Moles/Vol] 137 mmol/L Normal 135-145 [facility] Comment on above: Performed By: #### L [id number] ####Fender Mechanic Apprentice: MARTIN ERIC ([id number])[facility] (SB[facility]AB)[address] Urea nitrogen [Mass/Vol] 17 mg/dL Normal 7-17 [facility] Comment on above: Performed By: #### L [id number] ####Fender Mechanic Apprentice: MARTIN HUAWILFREDO ([phone])[facility] (SB[facility]AB)[address] Comprehensive metabolic 1998 panelon 03-01-2023 Albumin [Mass/Vol] 3.1 g/dL Low 3.5 - 5.0 g/dL [facility] ALP [Catalytic activity/Vol] 102 U/L 38 - 126 U/L [facility] ALT [Catalytic activity/Vol] 16 U/L 0 - 34 U/L [facility] Anion gap [Moles/Vol] 9 mmol/L 3 - 13 mmol/L [facility] AST [Catalytic activity/Vol] 24 U/L 15 - 46 U/L [facility] Bilirubin [Mass/Vol] 0.4 mg/dL 0.2 - 1 .3 mg/dL [facility] Calcium [Mass/Vol] 8.3 mg/dL Low 8.4 - 10. 4 mg/dL [facility] Chloride [Moles/Vol] 102 mmol/L 98 - 10 7 mmol/L [facility] CO2 [Moles/Vol] 26 mmol/L 22 - 30 mmol/L [facility] Creatinine [Mass/Vol] 0.96 mg/dL 0.52 - 1.04 mg/dL [facility] GFR/1.73 sq M.predicted MDRD (S/P/Bld) [Vol rate/Area] 60.3 mL/min/{1.73_m2} - PINF [facility] Comment on above: Calculation based on the Chronic Kidney Disease Epidemiology Collaboration (CKD-EPI) equation refit without adjustment for race Glucose [Mass/Vol] 123 mg/dL High 70 - 100 mg/dL [facility] Interpretation and review of laboratory results Abnormal [facility] Potassium [Moles/Vol] 4.3 mmol/L 3.5 - 5.1 mmol/L [facility] Protein [Mass/Vol] 6.0 g/dL Low 6.3 - 8.2 g/dL [facility] Sodium [Moles/Vol] 137 mmol/L 135 - 145 mmol/L [facility] Urea nitrogen [Mass/Vol] 17 mg/dL 7 - 17 mg/dL [facility] Consulton 03-01-2023 Consult [facility] CONSULT Note Radha Sandoval AGE: [...] 12/07/2022 Performed by Avery Marshall DO at [facility] ENDOSCOPY EYE SURGERY Bilateral early 90's LUNG [...] tablet 0 ergocalciferol (Vitamin D-2) 1.25 MG (57479 UT) capsule Take 1 capsule (1.25 mg) by mouth 1 (one) time per week. 90 capsule 1 Glucose Blood (Blood Glucose Test) strip 4 times daily. hydrOX (more content not included)... Normal [facility] Consult [facility] Geriatric Medicine Inpatient Consult Service Admission Date: 02/28/2023 Admission Status: INPATIENT Chief Complaint: "I couldn't get around and they directed me to the hospital because I was peeing constantly from that UTI." Reason for Appointment Geriatrics consulted for "functional decline" Assessment/Plan Principal Problem: LING (acute kidney injury) ([facility]) ([facility]) Active Problems: Declining functional status [...] [facility] at [phone]. Call in 2 weeks for memory (re)testing once acute issue(s) resolve - order placed in [facility] for follow-up Other I deferred full [...] well overnight. Awo (more content not included)... [facility] Consult This patient is not a new diabetic or new to insulin therapy and therefore does not meet our current criteria for the inpatient diabetes education service. The clinical bedside RN should provide any necessary diabetes education using the Diabetes Survival Skills Booklet available on the unit. Please consider a dietary consult if appropriate and if not already ordered. Contact [facility] pharmacist for assistance if a new glucometer or any associated supplies are needed. Thank you. Elder MUÑOZ,BSN,[facility] Consult Department of Disaster Recovery Coordinator al Medicine Division of Endocrinology, Diabetes, & Metabolism Endocrinology Note Patient Name: Radha Sandoval : 1945 AGE: 77 y.o. Room[facility]Bed: [facility] A Admission Date: 02/28/2023 Visit Date: 03/01/2023 Reason for Endocrine Consult: DM-Uncontrolled Provider/Team Requesting Consult: Dr. Finch PCP: Shiv Lopez MD Outpt Hack Driver: No ASSESSMENT: Type II diabetes with hyperglycemia, with snf insulin use Postoperative hypothyroidism PLAN: Humalog 6 [...] diagnosis. She has been having diarrhea in [id number], smt severe Glimepiride- started in 2015 Trulicity [...] Heart s (more content not included)... Normal [facility] HEMOGLOBIN A1Con 03-01-2023 Glucose [Mass/Vol] 315 mg/dL Normal [facility] Comment on above: Performed By: #### L [id number] ####Fender Mechanic Apprentice: MARTIN REYES ([phone])[facility] ([facility])[address] [place] [address] HbA1c (Bld) [Mass fraction] 12.6 % High <5.7 [facility] Comment on above: Result Comment: Norm al less than 5.7% Prediabetes 5.7% to 6.4% Diabetes 6.5% or higher --HgbA1C levels may not be accurate in patients who have renal disease, received recent blood transfusions, are anemic, or who have dyshemoglobinemia. Performed By: #### L AB90 ####Fender Mechanic Apprentice: MARTIN REYES ([phone])[facility] ([facility])[address] [place] [address] HbA1c (Bld) [Mass fraction]o n 03-01-2023 Average glucose Estimated from glycated hemoglobin (Bld) [Mass/Vol] 315 mg/dL [facility] Interpretation and review of laboratory results Abnormal [facility] Hemoglobin A1con 03-01-2023 HbA1c (Bld) [Mass fraction] 12.6 % High NINF - 5.7 % [facility] Comment on above: Normal less than 5.7 % Prediabetes 5.7% to 6.4% Diabetes 6.5% or higher --HgbA1C levels may not be accurate in patients who have renal disease, received recent blood transfusions, are anemic, or who have dyshemoglobinemia. POCT glucose meteron 023 Glucose [Mass/Vol] 194 mg/dL High 70 - 100 mg/dL [facility] Interpretation and review of laboratory results Abnormal [facility] Performed by: [facility], [address] [place] [address] CLIA ID: [id number] [facility] Glucose [Mass/Vol] 95 mg/dL 70 - 100 mg/dL [facility] Interpretation and review of laboratory results Normal [facility] Performed by: [facility], [address] [place] [address] CLIA ID: [id number] [facility] Glucose [Mass/Vol] 153 mg/dL High 70 - 100 mg/dL [facility] Interpretation and review of laboratory results Abnormal [facility] Performed by: [facility], [address] [place] [address] CLIA ID: [id number] [facility] Glucose [Mass/Vol] 172 mg/dL High 70 - 100 mg/dL [facility] Interpretation and review of laboratory results Abnormal [facility] Performed by: [facility], [address] [place] [address] CLIA ID: [id number] [facility] PROCALCITONIN TESTon 023 PROCALCITONIN 0.05 ng/mL Normal 0.00-0.09 [facility] Comment on above: Result Comment: LISA Mejia COMMENTS: PCT <0.50 = Low risk of severe sepsis and/or septic shock. PCT >2.00 = High risk of severe sepsis and/or septic shock. Performed By: #### L [id number] ####Fender Mechanic Apprentice: ASHLEY LLANOS ([phone])[facility] ([facility] Procalcitonin Teston 023 Procalcitonin [Mass/Vol] 0.05 ng/mL 0.00 - 0.09 ng/mL [facility] Procalcitonin [Mass/Vol]on 0 03-01-2023 Interpretation and review of laboratory results Normal [facility] PCT <0.50 = Low risk of severe sepsis and/or septic shock. PCT >2.00 = High risk of severe sepsis and/or septic shock. [facility] Progress Noteon 03-01-2023 Progress Note Physical Therapy Facility/Department: [address] Physical Therapy Initial Evaluation NAME: Radha Sandoval : 1945 Date of Service: 03/01/2023 Discharge Recommendations: Snf Facility, Continue to assess pending progress PT [...] diagnosis was LING (acute kidney injury) (CMS/HCC) ([facility]). Diagnoses of Pyelonephritis, Polypharmacy, Insomnia, unspecified type, and Pressure ulcer of right buttock, stage 3 ([facility]) were also pertinent to this [...] Device: straight cane Transfer Assistance: Independent Active Research Laboratory Manager: Yes Objective Observation/Palpation Posture: Good Observation: [...] from [place] (more content not included)... Normal [facility] Progress Note Occupational Therapy OCCUPATIONAL THERAPY [facility] & ED's Initial Evaluation Name/MRN: Radha Sandoval ([id number]) Evaluation Date: 03/01/2023 Date of : 1945 [...] 12/07/2022 Performed by Avery Marshall DO at [facility] ENDOSCOPY EYE SURGERY Bilateral early 90' LUNG REMOVAL, PARTIAL Left ROTATOR CUFF REPAIR Left TONSILLECTOMY Admission Diagnosis: Patient Active Problem List Diagnosis Date Noted LING (acute kidney injury) ([facility] ([facility]) 02/28/2023 Acute cystitis with hematuria 02/27/2023 Diarrhea 02/27/2023 Wound of right buttock 02/07/2023 Hypokalemia 12/13/2022 Gastrointestinal bleed 12/07/2022 Other chronic sinusitis 10/25/2022 Urinary frequency 10/04/2022 Chronic left shoulder pain 10/04/2022 Diabetes mellitus due to underlying condition with diabetic chronic kidney disease ([facility]) 06/30/2022 DDD (degenerative disc disease), lumbar 06/30/2022 Chronic right-sided low back pain with right-sided sciatica 06/30/2022 Dyspnea on exertion 09/09/2021 Muscle spasms of both lower extremities 09/09/2021 Lymphedema of both lower extremities 08/05/2021 OAB (overactive bladder) 05/06/2021 Localized edema 10/01/2020 Dependent edema 07/13/2020 Uncontrolled type 2 diabetes mellitus with hyperglycemia ([facility]) 01/16/2020 Morbidly obese ([facility]) 01/16/2020 Vitamin D deficiency 01/16/2020 Moderate episode of recurrent major depressive disorder ([facility]) 06/03/2019 Chronic renal insufficiency, stage III (moderate) ([facility]) 06/03/2019 Hyperlipidemia with target LDL [...] Responsibilities: Independent Receives Help From: None Active Research Laboratory Manager: Yes Prior Level of Function ADL [...] Adls. Upper Ext (more content not included)... [facility] 36on 02-28-2023 36 Noted. Patient sana mendenhall notified. See previous TE if needed. [facility] 36 Called and spoke wit h [...] states that she will be going to [facility]. [facility] 36 S: Christine from [employer] [phone] spoke with PSYCHIATRIC nurse regarding critical lab results B: Glucose A: Blood was drawn yesterday. Glucose was 524, resulting this morning. Verified with repeat analysis. The lab work was ordered by Katia Granados CNP. R: Since office is open, called back line and spoke with Katia Schulz's nurse. Result given. No further instructions to the PSYCHIATRIC nurse. Reason for Disposition Lab or radiology calling with CRITICAL test results Protocols used: PCP Call - [facility] CARECOOR[facility]-28-2023 CARECOORD Next Site of Care Admission Date: 02/28/2023 11:30 AM Patient Name: RADHA SANDOVAL Location: [address] MED SURG/[facility] [id number] A Date of : 1945 - Placement Information - Referral Type:Alf/SNF - New Referral ID:[id number] Provider Name:[facility] Address 1:[address] [place] [address] Address 2: City:[place] Selection Factors:Patient/Family Choice State:[place] Normal [facility] CBC W Auto Differential pane l (Bld)Ordered By: Clayton Lozano on 02-28-2023 Basophils (Bld) [#/Vol] 0.1 10*3/uL 0.0 - 0.2 10*3/uL [employer] [facility] Basophils/100 WBC (Bld) 0.5 % 0.0 - 2.0 % [employer] [facility] Eosinophils (Bld) [#/Vol] 0.1 10*3/uL 0.0 - 0.5 10*3/uL [employer] [facility] Eosinophils/100 WBC (Bld) 0.9 % Low 1.0 - 6.0 % [facility] Erythrocyte distribution width (RBC) [Ratio] 13.8 % 11.5 - 14.5 % [facility] Hematocrit (Bld) [Volume fraction] 36.0 % 35.0 - 47.0 % [facility] Hemoglobin (Bld) [Mass/Vol] 11.5 g/dL Low 11.7 - 16.0 g/dL [facility] Interpretation and review of laboratory results Abnormal [facility] Lymphocytes (Bld) [#/Vol] 0.8 10*3/uL Low 1.0 - 4.3 10*3/uL [facility] Lymphocytes/100 WBC (Bld) 6.4 % Low 20.0 - 40.0 % [facility] MCH (RBC) [Entitic mass] 28.0 pg 26.0 - 34.0 pg [facility] MCHC (RBC) [Mass/Vol] 32.0 % 32.0 - 36.0 % [facility] MCV (RBC) [Entitic vol] 87.5 fL 80.0 - 98.0 fL [facility] Monocytes (Bld) [#/Vol] 1.1 10*3/uL High 0.0 - 0.8 10*3/uL [facility] Monocytes/100 WBC (Bld) 9.0 % 2.0 - 10.0 % [facility] Neutrophils (Bld) [#/Vol] 10.2 10*3/uL High 1.8 - 7.0 10*3/uL [facility] Neutrophils/100 WBC (Bld) 83.2 % High 40.0 - 80.0 % [facility] Nucleated RBC/100 WBC (Bld) [Ratio] 0.0 % [facility] Platelet mean volume (Bld) [Entitic vol] 8.6 fL 7.4 - 12.4 fL [facility] Platelets (Bld) [#/Vol] 278 10*3/uL 140 - 440 10*3/uL [facility] RBC (Bld) [#/Vol] 4.11 10*6/uL 3.8 - 5.20 10*6/uL [facility] WBC (Bld) [#/Vol] 12.3 10*3/uL High 3.6 - 10.7 10*3/uL [facility] CBC WITH AUTO DIFFERENTIALon 02-28-2023 Basophils (Bld) [#/Vol] 0.1 10*3/uL Normal 0.0-0.2 [facility] Comment on above: Performed By: #### L [id number] ####Fender Mechanic Apprentice: MARTIN REYES ([id number])[facility] ([facility])[address] Basophils/100 WBC (Bld) 0.5 % Normal 0.0-2.0 [facility] Comment on above: Performed By: #### L [id number] ####Fender Mechanic Apprentice: MARTIN REYES ([phone])[facility] ([facility])[address] Eosinophils (Bld) [#/Vol] 0.1 10*3/uL Normal 0.0-0.5 [facility] Comment on above: Performed By: #### L [id number] ####Fender Mechanic Apprentice: MARTIN REYES ([phone])[facility] ([facility])[address] Eosinophils/100 WBC (Bld) 0.9 % Low 1.0-6.0 [facility] Comment on above: Performed By: #### L [id number] ####Fender Mechanic Apprentice: MARTIN REYES ([phone])[facility] ([facility])[address] Erythrocyte distribution width (RBC) [Ratio] 13.8 % Normal 11.5-14.5 [facility] Comment on above: Performed By: #### L [id number] ####Fender Mechanic Apprentice: MARTIN REYES ([phone])[facility] [place] ([facility])[address] ERYTHROCYTE MEAN CORPUSCULAR HEMOGLOBIN CONCENTRATION (G/DL) BY AUTOMATED 32.0 % Normal 32.0-36.0 [facility] Comment on above: Performed By: #### L [id number] ####Fender Mechanic Apprentice: MARTIN REYES ([id number])[facility] ([facility])[address] Hematocrit (Bld) [Volume fraction] 36.0 % Normal 35.0-47.0 [facility] Comment on above: Performed By: #### L [id number] ####Fender Mechanic Apprentice: MARTIN REYES ([phone])[facility] ([facility])[address] Hemoglobin (Bld) [Mass/Vol] 11.5 g/dL Low 11.7-16.0 [facility] Comment on above: Performed By: #### L [id number] ####Fender Mechanic Apprentice: MARTIN REYES ([phone])[facility] ([facility])[address] Lymphocytes (Bld) [#/Vol] 0.8 10*3/uL Low 1.0-4.3 [facility] Comment on above: Performed By: #### L [id number] ####Fender Mechanic Apprentice: MARTIN REYES ([phone])[facility] ([facility])[address] [place] [address] Lymphocytes/100 WBC (Bld) 6.4 % Low 20.0-40.0 [facility] Comment on above: Performed By: #### L [id number] ####Fender Mechanic Apprentice: MARTIN REYES ([id number])[facility] ([facility])[address] MCH (RBC) [Entitic mass] 28.0 pg Normal 26.0-34.0 [facility] Comment on above: Performed By: #### L [id number] ####Fender Mechanic Apprentice: MARTIN REYES ([phone])[facility] (SB[facility])[address] MCV (RBC) [Entitic vol] 87.5 fL Normal 80.0-98.0 [facility] Comment on above: Performed By: #### L [id number] ####Fender Mechanic Apprentice: MARTIN REYES ([phone])[facility] ([facility])[address] [place] [address] [place] Monocytes (Bld) [#/Vol] 1.1 10*3/uL High 0.0-0.8 [facility] Comment on above: Performed By: #### L [id number] ####Fender Mechanic Apprentice: MARTIN REYES ([phone])[facility] ([facility])[address] [place] [address] [place] Monocytes/100 WBC (Bld) 9.0 % Normal 2.0-10.0 [facility] Comment on above: Performed By: #### L [id number] ####Fender Mechanic Apprentice: MARTIN REYES ([phone])[facility] ([facility])[address] Neutrophils (Bld) [#/Vol] 10.2 10*3/uL High 1.8-7.0 [facility] Comment on above: Performed By: #### L [id number] ####Fender Mechanic Apprentice: MARTIN REYES ([phone])[facility] ([facility])[address] Neutrophils/100 WBC (Bld) 83.2 % High 40.0-80.0 [facility] Comment on above: Performed By: #### L [id number] ####Fender Mechanic Apprentice: MARTIN REYES ([phone])[facility] ([facility])[address] NRBC (PER 100 WBCS) BY AUTOMATED COUNT 0.0 /100 WBCs Normal 0.0-2.0 [facility] Comment on above: Performed By: #### L [id number] ####Fender Mechanic Apprentice: MARTIN REYES ([phone])[facility] ([facility])[address] Platelet mean volume (Bld) [Entitic vol] 8.6 fL Normal 7.4-12.4 [facility] Comment on above: Performed By: #### L [id number] ####Fender Mechanic Apprentice: MARTIN REYES ([phone])[facility] (SB[facility])[address] PLATELETS (10*3/UL) IN BLOOD AUTOMATED COUNT 278 10*3/uL Normal 140-440 [facility] Comment on above: Performed By: #### L [id number] ####Fender Mechanic Apprentice: MARTIN REYES ([phone])[facility] ([facility])[address] RBC (Bld) [#/Vol] 4.11 10*6/uL Normal 3.8-5.20 [facility] Comment on above: Performed By: #### L [id number] ####Fender Mechanic Apprentice: MARTIN REYES ([id number])[facility] (SB[facility])[address] WBC (Bld) [#/Vol] 12.3 10*3/uL High 3.6-10.7 [facility] Comment on above: Performed By: #### L [id number] ####Fender Mechanic Apprentice: MARTIN REYES ([phone])[facility] (SB[facility])[address] COMPLETE URINALYSISon 2022 BACTERIA (#/HPF) IN URINE Moderate Abnormal Negative [facility] Comment on above: Performed By: #### L [id number] ####Fender Mechanic Apprentice: MARTIN REYES ([phone])[facility] ([facility])[address] BILIRUBIN, TOTAL PRESENCE IN URINE Negative Normal Negative [facility] Comment on above: Performed By: #### L [id number] ####Fender Mechanic Apprentice: MARTIN REYES ([phone])[facility] ([facility])[address] Clarity (U) Turbid Abnormal Clear [facility] Comment on above: Performed By: #### L [id number] ####Fender Mechanic Apprentice: MARTIN REYES ([phone])[facility] ([facility])[address] [place] [address] [place] Color (U) Light Yellow Normal Lt. Yellow [facility] Comment on above: Performed By: #### L [id number] ####Fender Mechanic Apprentice: MARTIN HUANateJOSE R ([phone])[facility] ([facility])[address] GLUCOSE (MG/DL) IN URINE >1,000 Abnormal Normal (<70) [facility] Comment on above: Performed By: #### L [id number] ####Fender Mechanic Apprentice: MARTIN REYES ([phone])[facility] ([facility])[address] GRANULAR CASTS (#/LPF) IN URINE 0-2 Abnormal Negative [facility] Comment on above: Performed By: #### L [id number] ####Fender Mechanic Apprentice: MARTIN REYES ([phone])[facility] ([facility])[address] HEMOGLOBIN PRESENCE IN URINE Negative Normal Negative [facility] Comment on above: Performed By: #### L [id number] ####Fender Mechanic Apprentice: MARTIN AMBROSEJOSE R ([phone])[facility] (HLAB)[address] HYALINE CASTS (#/LPF) IN URINE SEDIMENT BY MICROSCOPY 3-5 Abnormal Negative [facility] Comment on above: Performed By: #### L [id number] ####Fender Mechanic Apprentice: MARTIN AMBROSEJOSE R ([phone])[facility] (SB[facility])[address] [place] [address] [place] Ketones Ql (U) Negative Normal Negative [facility] Comment on above: Performed By: #### L [id number] ####Fender Mechanic Apprentice: MARTIN AMBROSEJOSE R ([phone])[facility] ([facility])[address] LEUKOCYTE ESTERASE PRESENCE IN URINE BY TEST STRIP 250 Sandeep/uL Abnormal Negative [facility] Comment on above: Performed By: #### L [id number] ####Fender Mechanic Apprentice: MARTIN REYES ([phone])[facility] ([facility])[address] [place] [address] [place] MUCUS (#/LPF) IN URINE SEDIMENT Few Normal Negative [facility] Comment on above: Performed By: #### L [id number] ####Fender Mechanic Apprentice: MARTIN REYES ([id number])[facility] [place] ([facility])[address] NITRITE PRESENCE IN URINE Positive Abnormal Negative [facility] Comment on above: Performed By: #### L [id number] ####Fender Mechanic Apprentice: MARTIN REYES ([phone])[facility] [place] ([facility])[address] pH (U) 5.0 [pH] Normal 5.0-8.0 [facility] Comment on above: Performed By: #### L [id number] ####Fender Mechanic Apprentice: MARTIN REYES ([phone])[facility] [place] ([facility])[address] Protein (U) [Mass/Vol] 20 mg/dL Abnormal Negative [facility] Comment on above: Performed By: #### L [id number] ####Fender Mechanic Apprentice: MARTIN REYES ([phone])[facility] [place] ([facility])[address] [place] [address] [place] RBC (#/HPF) IN URINE SEDIMENT 0-2 Normal 0-2 [facility] Comment on above: Performed By: #### L [id number] ####Fender Mechanic Apprentice: MARTIN REYES ([phone])[facility] [place] ([facility])[address] Specific gravity (U) [Rel density] 1.020 Normal 1.005-1.030 [facility] Comment on above: Performed By: #### L [id number] ####Fender Mechanic Apprentice: MARTIN REYES ([phone])[facility] [place] ([facility])[address] SQUAMOUS EPITHELIAL CELLS (#/HPF) IN URINE SEDIMENT 3-5 Normal 3-5 [facility] Comment on above: Performed By: #### L [id number] ####Fender Mechanic Apprentice: MARTIN REYES ([phone])[facility] [place] ([facility])[address] UROBILINOGEN (MG/DL) IN URINE Normal Normal Normal (0-1) [facility] Comment on above: Performed By: #### L [id number] ####Fender Mechanic Apprentice: MARTIN REYES ([phone])[facility] [place] ([facility])[address] WBC (LEUKOCYTE) (#/HPF) IN URINE SEDIMENT 11-25 Abnormal 0-5 [facility] Comment on above: Performed By: #### L [id number] ####Fender Mechanic Apprentice: MARTIN REYES ([phone])[facility] [place] ([facility])[address] WBC (LEUKOCYTE) CLUMPS (#/HPF) IN URINE SEDIMENT Occasional Abnormal Negative [facility] Comment on above: Performed By: #### L [id number] ####Fender Mechanic Apprentice: MARTIN REYES ([phone])[facility] [place] ([facility])[address] YEAST (#/HPF) IN URINE Few Abnormal Negative [facility] Comment on above: Performed By: #### L [id number] ####Fender Mechanic Apprentice: MARTIN REYES ([phone])[facility] [place] ([facility])[address] COMPREHENSIVE METABOLIC PANE Real 02-28-2023 Albumin [Mass/Vol] 3.7 g/dL Normal 3.5-5.0 [facility] Comment on above: Performed By: #### L AB17 ####Fender Mechanic Apprentice: MARTIN REYES ([id number])[facility] [place] ([facility])[address] [place] [address] [place] ALP [Catalytic activity/Vol] 119 U/L Normal 38-126 [facility] Comment on above: Performed By: #### L AB17 ####Fender Mechanic Apprentice: MARTIN REYES ([phone])[facility] ([facility])[address] ALT [Catalytic activity/Vol] 18 U/L Normal 0-34 [facility] Comment on above: Performed By: #### L AB17 ####Fender Mechanic Apprentice: MARTIN REYES ([phone])[facility] ([facility])[address] Anion gap [Moles/Vol] 8 mmol/L Normal 3-13 [facility] [place] Comment on above: Performed By: #### L AB17 ####Fender Mechanic Apprentice: MARTIN REYES ([id number])[facility] (HLAB)[address] AST [Catalytic activity/Vol] 24 U/L Normal 15-46 [facility] Comment on above: Performed By: #### L AB17 ####Fender Mechanic Apprentice: MARTIN REYES ([phone])[facility] (HLAB)[address] Bilirubin [Mass/Vol] 0.5 mg/dL Normal 0.2-1.3 [facility] Comment on above: Performed By: #### L AB17 ####Fender Mechanic Apprentice: MARTIN REYES ([id number])[facility] (HLAB)[address] Calcium [Mass/Vol] 8.4 mg/dL Normal 8.4-10.4 [facility] Comment on above: Performed By: #### L AB17 ####Fender Mechanic Apprentice: MARTIN REYES ([phone])[facility] (SBHLAB)[address] Chloride [Moles/Vol] 96 mmol/L Low 98-107 [facility] Comment on above: Performed By: #### L AB17 ####Fender Mechanic Apprentice: MARTIN REYES ([id number])[facility] (SBHLAB)155 [place] [address] [place] CO2 [Moles/Vol] 26 mmol/L Normal 22-30 [facility] Comment on above: Performed By: #### L AB17 ####Fender Mechanic Apprentice: MARTIN REYES ([id number])[facility] (SBHLAB)[address] Creatinine [Mass/Vol] 1.22 mg/dL High 0.52-1.04 [facility] Comment on above: Performed By: #### L AB17 ####Fender Mechanic Apprentice: MARTIN REYES ([id number])[facility] (SBHLAB)[address] GLOMERULAR FILTRATION RATE ML/MIN/1.73 SQ M.PREDICTED 45.2 mL/min/1.73m*2 Low >60.0 [facility] Comment on above: Result Comment: Calc ulation based on the Chronic Kidney Disease Epidemiology Collaboration (CKD-EPI) equation refit without adjustment for race Performed By: #### L AB17 ####Fender Mechanic Apprentice: MARTIN REYES ([id number])[facility] (SBHLAB)155 [place] [address] [place] Glucose [Mass/Vol] 483 mg/dL Critically high 70-100 [facility] Comment on above: Performed By: #### L AB17 ####Fender Mechanic Apprentice: MARTIN REYES ([id number])[facility] (SBHLAB)155 [place] [address] [place] Potassium [Moles/Vol] 4.0 mmol/L Normal 3.5-5.1 [facility] Comment on above: Performed By: #### L AB17 ####Fender Mechanic Apprentice: MARTIN REYES ([id number])[facility] (SBHLAB)155 [place] [address] [place] Protein [Mass/Vol] 6.6 g/dL Normal 6.3-8.2 [facility] Comment on above: Performed By: #### L AB17 ####Fender Mechanic Apprentice: MARTIN REYES ([id number])[facility] [place] (SBHLAB)[address] Sodium [Moles/Vol] 130 mmol/L Low 135-145 [facility] Comment on above: Performed By: #### L AB17 ####Fender Mechanic Apprentice: MARTIN REYES ([id number])[facility] [place] (SBHLAB)[address] Urea nitrogen [Mass/Vol] 20 mg/dL High 7-17 [facility] Comment on above: Performed By: #### L AB17 ####Fender Mechanic Apprentice: MARTIN REYES ([phone])[facility] (SBHL[facility] ABDOMEN PELVIS WO IV CONT [facility] 02-28-2023 CT ABDOMEN PELVIS WO IV CONTRAST Patient Name: RADHA SANDOVAL : 1945 Exam [...] back pain and burning with urination Normal [facility] CT Abdomen WO contraston Colonic diverticulosis without evidence of acute diverticulitis. Bilateral renal cysts, the largest cyst is on the left measuring up to 4.8 cm. Report Dictated on Electronically Signed By: Jb Ahmadi DO Electronically Signed Date/Time: 02/28/2023 1:44 PM EDT [facility] Patient Name: RADHA SANDOVAL : 1945 [...] the aorta and iliac arteries are noted. [facility] Jb Ahmadi DO - 02/28/2023 Patient [...] Electronically Signed Date/Time: 02/28/2023 1:44 PM EDT [facility] Radiology Study observation (narrative) [facility] alth CT Abdomen WO contrastOrdere d By: Jb Ahmadi on 02-28-2023 [facility] Work Phone: Comprehensive metabolic 1998 panelOrdered By: Azucena Li on 02-28-2023 Albumin [Mass/Vol] 3.7 g/dL 3.5 - 5.0 g/dL [facility] ALP [Catalytic activity/Vol] 119 U/L 38 - 126 U/L [facility] ALT [Catalytic activity/Vol] 18 U/L 0 - 34 U/L [facility] Anion gap [Moles/Vol] 8 mmol/L 3 - 13 mmol/L [facility] AST [Catalytic activity/Vol] 24 U/L 15 - 46 U/L [facility] Bilirubin [Mass/Vol] 0.5 mg/dL 0.2 - 1 .3 mg/dL [facility] Calcium [Mass/Vol] 8.4 mg/dL 8.4 - 10. 4 mg/dL [facility] Chloride [Moles/Vol] 96 mmol/L Low 98 - 10 7 mmol/L [facility] CO2 [Moles/Vol] 26 mmol/L 22 - 30 mmol/L [facility] Creatinine [Mass/Vol] 1.22 mg/dL High 0.52 - 1.04 mg/dL [facility] GFR/1.73 sq M.predicted MDRD (S/P/Bld) [Vol rate/Area] 45.2 mL/min/{1.73_m2} Low - PINF [facility] Comment on above: Calculation based on the Chronic Kidney Disease Epidemiology Collaboration (CKD-EPI) equation refit without adjustment for race Glucose [Mass/Vol] 483 mg/dL Critically high 70 - 1 00 mg/dL [facility] Interpretation and review of laboratory results Abnormal [facility] Potassium [Moles/Vol] 4.0 mmol/L 3.5 - 5.1 mmol/L [facility] Protein [Mass/Vol] 6.6 g/dL 6.3 - 8.2 g/dL [facility] Sodium [Moles/Vol] 130 mmol/L Low 135 - 145 mmol/L [facility] Urea nitrogen [Mass/Vol] 20 mg/dL High 7 - 17 mg/dL [facility] ED Nursing Noteon 02-28-2023 ED Nursing Note Pt presents for admission per her PCP. Was sent to get kidneys evaluated per pt. Pt endorses lower back pain and burning and pain with urination. Was recently admitted. Normal [facility] ED Provider Noteon ED Provider Note [facility] 1E MED SURG EMERGENCY DEPARTMENT ENCOUNTER Pt [...] 12/07/2022 Performed by Avery Marshall DO at [facility] ENDOSCOPY EYE SURGERY Bilateral early 90' LUNG [...] shoulder pain ergocalciferol (Vitamin D-2) 1.25 MG (72494 UT) capsule Take 1 capsule (1.25 mg) [...] Depression Moth (more content not included)... Normal [facility] POCT glucose meteron 023 Glucose [Mass/Vol] 245 mg/dL High 70 - 100 mg/dL [facility] Interpretation and review of laboratory results Abnormal [facility] Performed by: [facility], [address] [place] [address] CLIA ID: [id number] [facility] Glucose [Mass/Vol] 197 mg/dL High 70 - 100 mg/dL [facility] Interpretation and review of laboratory results Abnormal [facility] Performed by: [facility], [address] [place] [address] CLIA ID: [id number] [facility] URINE CULTUREon 02-28-2023 Bacteria identified Cx Nom [...] Non-susceptible NO = No Interpretation ] Normal [facility] Comment on above: Performed By: #### L AB239 ####Fender Mechanic Apprentice: ASHLEY LLANOS ([id number])[facility] (SACLAB)[address] [place] [address] Urinalysis complete panel (U )on 02-28-2023 Bacteria LM.HPF (Urine sed) [#/Area] Moderate Abnormal Negative /HPF [facility] Bilirubin Ql (U) Negative Negative mg/dL [facility] Clarity (U) Turbid Abnormal Clear [facility] Color (U) Light Yellow Lt. Yellow [facility] Epithelial cells.squamous LM.HPF (Urine sed) [#/Area] 3-5 [facility] h Glucose Ql (U) >1,000 Abnormal Normal (<70) mg/dL [facility] Granular casts LM.HPF (Urine sed) [#/Area] 0-2 Abnormal Negative /LPF [facility] Hemoglobin Ql (U) Negative Negative mg/dL [facility] Hyaline casts Auto (Urine sed) [#/Area] 3-5 Abnormal Negative /LPF [facility] Interpretation and review of laboratory results Abnormal [facility] Ketones (U) [Mass/Vol] Negative Negat katherine mg/dL [facility] Leukocyte clumps LM.HPF (Urine sed) [#/Area] Occasional Abnormal Negative /HPF [facility] Leukocyte esterase Test strip Ql (U) 250 Abnormal Negative Sandeep/uL [facility] Mucus LM.HPF (Urine sed) [#/Area] Few Negative /LPF [facility] Nitrite Ql (U) Positive Abnormal Negative [facility] th pH (U) 5.0 [pH] 5.0 - 8.0 pH [facility] Protein (U) [Mass/Vol] 20 mg/dL Abnormal Negative [facility] RBC LM.HPF (Urine sed) [#/Area] 0-2 [facility] Specific gravity (U) [Rel density] 1.020 1.005 - 1.030 [facility] Urobilinogen (U) [Mass/Vol] Normal Normal (0-1) mg/dL [facility] WBC LM.HPF (Urine sed) [#/Area] 11-25 Abnormal [facility] Yeast.budding LM.HPF (Urine sed) [#/Area] Few Abnormal Negative /HPF [facility] 36on 02-27-2023 36 Rx sent Normal [facility] Glucose (Bld) [Mass/Vol]on 0 02-27-2023 Glucose Blood, POC 494 mg/dL [facility] Interpretation and review of laboratory results Abnormal [facility] Office Visiton 02-27-2023 Follow-up visit [id number] Radha Sandoval 1945 F Date Provider Department Center 02/27/2023 [id number] GRANADOS [facility] [place] [facility] Family History Problem Relation Age of Onset Mental illness Mother Depression Mother Heart disease Father High Blood Pressure Father Asthma Father Hypertension Father Diabetes Brother Family Status - Relation Status Age at Mother Father Brother Level of Service:78354 [place] OFFICE/OUTPATIENT ESTABLISHED MOD MDM 30-39 MIN Reason for Visit and Comments: Blood Sugar Problem [389440] Knee Pain [867947] Diarrhea [35] - Back Pain [12] Normal [facility] Progress Noteon 02-27-2023 Progress Note No fever or chills, abdomen soft. Unknown etiology. Will check CBC and CMP. Consider stool culture if symptoms continue Normal [facility] Progress Note We will check CMP today Normal [facility] Progress Note UA positive nitrites and leuks moderate blood, will start antibiotic therapy sent for culture Normal [facility] Progress Note Controlled. Continue amlodipine 10 mg daily and lisinopril 40 mg daily Normal [facility] Progress Note Will check TSH today due to recent fatigue Normal [facility] Progress Note Patient has not followed up with wound center upon visualization today wound unchanged, advised to keep area as clean as possible with frequent changes of incontinence pads Normal [facility] Progress Note Uncontrolled. Patien t having difficulties with compliance. Continue insulin regimen. Possible increased glucose due to urinary tract infection we will treat Normal [facility] Progress Note 02/27/2023 Radha Sandoval (: [...] for as directed pending test results. SUBJECTIVE/OBJECTIVE: [facility] - Radha Sandoval (: 1945) is a [...] her blood sugar today, noted In office [id number] testing 494. Urination Increased frequency, dysuria intermittently. [...] out soon. Has Maximino (son) work in [employer] He may be able to help her [...] Lopez MD ergocalciferol (Vitamin D-2) 1.25 MG (14146 UT) capsule Take 1 capsule (1.25 mg) [...] CNP potassium chlor (more content not included)... [facility] Progress Note Please see if she rodriguez s gone to ER. Call and encourage her to go if she hasn't yet. Normal [facility] Progress Note Patient was identifi ed by name and Date of . POCT glucose at [facility]-provider notified. [facility] Urinalysis macro (dipstick) panel (U)on 02-27-2023 Bilirubin, UA Moderate [facility] Blood, UA Small [facility] Glucose, UA >1,000 [facility] Interpretation and review of laboratory results Abnormal [facility] Ketones, UA Trace [facility] Leukocytes, UA Moderate [facility] Nitrite, UA Positive [facility] pH, UA 6.0 [facility] Protein, UA Trace [facility] Spec Grav, UA 1.010 [facility] Urobilinogen, [facility]A 0.2 [facility] 36on 02-24-2023 36 S: Patient spoke rené h PSYCHIATRIC nurse regarding: Patient needs refill on Novolog. She is out of medication. B: Onset of symptoms/concern: today A: Pt states she needs refill of her Novolog pen, she is out. R: Pt is aware of message to provider for refill. Allergies and pharmacy verified. call center director paged. Per YAZMIN Gracia Novolog Flexpen 16 units QID, 30 days, 0 refills. Called to [facility] pharmacy, order pended on chart. Reason for Disposition [1] Prescription refill request for ESSENTIAL medicine (i.e., likelihood of harm to patient if not taken) AND [2] triager unable to refill per department policy Protocols used: Medication Refill and Renewal [facility] Patient is out of medication. This [...] prior to picking up the medication: Yes [place] [id number] Noted. Agree with disposition. [place] [address] Sent a secure chat edie John [employer] she is working on the [employer]. [place] [address] S: Patient called [facility] with complaint of elevated blood sugar B: [...] diabetes) Protocols used: Diabetes - High Blood [facility] 36on 02-23-2023 36 faxed [place] [address] Not quite sure what that was all about but I guess I did which she told me to do instructions were kind of difficult to understand [place] [address] Re-printing and plac ing on your desk, need to resign next to original signature with the date and then initial next to Faby with the date. [place] [address] Faxed on 02/17/23 [facility] 36 S: Patient spoke wit h PSYCHIATRIC nurse regarding High Blood Sugar number possible [...] seen Protocols used: Diabetes - High Blood Lyhiz-JGTVO-NC [facility] 36 Name of caller: Paula Contact phone number: [phone] Relationship to Patient: [facility] Diabetic Provider: Dr. Lopez Practice: [place] [facility] Chief Complaint/Reason for Call: Paula from [facility] Diabetic states that they did receive Rx for Freestyle Evin, however it was not accepted due to the correction on the sign date. Paula is requesting that we please resend the Rx, have Provider resign it, and have the Drs initial next to the date as well. Rx can be sent to #[phone]. Please advise. Best time of day caller can be reached: Any Patient advised that office/PCP has 24-48 business hours to return their call: No [facility] 36on 02-17-2023 36 Noted. Fax put in burt x to go out [facility] 36 Name of caller: Colette bert Contact phone number: [phone] Relationship to Patient: [facility] Provider: Dr. Lopez Practice: [place] [facility] Chief Complaint/Reason for Call: Caller wanted to follow up regarding request for pt diabetic continuous glucose meter that was faxed on 02.02.2023. Caller stated they received the Rx but the Rx was incomplete. Caller would like to ask office to re write with doctors initial and fax again to: [phone]. Please advise. Thank you. Best time of day caller can be reached: Any Patient advised that office/PCP has 24-48 business hours to return their call: Yes [facility] PATINSon 02-15-2023 PATINS Return in 1 week rené Magallanes If you have any questions or concerns, please call our wound center at [phone] or [phone]. Offloading Try to avoid pressure and sheering [...] as diet tolerates, to help improve healing. [facility] 36on 02-14-2023 36 Notified. [place] [address] Rx sent [place] [address] Spoke with patient s he found the bottle and it is the baclofen [place] [address] The only medications on her list and on her history it would have been used for cramps in her legs would have been her Mirapex and that 1 was just refilled in December for baclofen which is an actual muscle relaxer and that was refilled in December other than those I do not know what she would be talking about [place] [address] S: Patient spoke rené grover PSYCHIATRIC nurse regarding out of medication for muscle [...] policy Protocols used: Medication Refill and Renewal [id number] [facility] Office Visiton 02-07-2023 Follow-up visit [id number] Radha Sandoval 1945 F Date Provider Department Center 02/07/2023 [id number] GRANADOS [facility] Family History Problem Relation Age of Onset Mental illness Mother Depression Mother Heart disease Father High Blood Pressure Father Asthma Father Hypertension Father Diabetes Brother Family Status - Relation Status Age at Mother Father Brother Level of Service:28239 [place] OFFICE/OUTPATIENT ESTABLISHED LOW MDM 20-29 MIN Reason for Visit and Comments: Sore [127234] - On buttocks-getting worse Normal [facility] Progress Noteon 02-07-2023 Progress Note Chronic. Refill mobic. Normal [facility] Progress Note Avoid pressure to ar ea, avoid friction, keep area as dry as possible. Refer to wound clinic. [facility] Progress Note 02/07/2023 Radha Sandoval (: 1945) is a 77 y.o. female , Established patient, here for evaluation of the following chief complaint(s): Sore (On buttocks-getting worse) ASSESSMENT/PLAN: 1. Wound of right buttock, subsequent encounter Assessment & Plan: Avoid pressure to area, avoid friction, keep area as dry as possible. Refer to wound clinic. Orders: - [facility] 2. Chronic left shoulder pain Assessment & Plan: Chronic. Refill mobic. Orders: - meloxicam (Mobic) 7.5 MG tablet; Take 1 tablet (7.5 mg) by mouth daily., Starting 02/07/2023, Normal Follow up for with primary care [...] Arriaza CNP ergocalciferol (Vitamin D-2) 1.25 MG (46760 UT) capsule Take 1 capsule (1.25 mg) [...] tablet (40 mg) by mouth daily. 12/08/22 Katia Granados APRN - JORGE PARoxetine (Paxil) 20 MG tablet Take 1 tablet (20 mg) by mouth every morning. 12/08/22 Katia Granados APRN - JORGE pramipexole (Mirapex) 0.125 MG tablet Take 2 tablets (0.25 mg) by mouth Nightly. 01/13/23 03/14/23 Katia Granados APRN - JORGE rosuvastatin (Crestor) 10 MG tablet Take 1 tablet (10 mg) by mouth daily. 12/08/22 Katia Granados APRN - JORGE senna-docusate sodium (Senokot-S) 8.6-50 MG tablet Take 1 tablet by mouth daily. 12/13/22 02/11/23 Katia ELSA Granados CNP zolpidem (Ambien) 10 MG tablet Take [...] signature was used to authenticate this note. Katia ELSA Granados CNP 02/07/2023 12:53 PM Normal [facility] Progress Note Patient was identifi ed by name and Date of . PHARMACY VERIFIED WITH PATIENT[facility] [place]. Normal [facility] 36on 02-06-2023 36 S: Pt calling [...] splenectomy, organ transplant, chronic steroids) Protocols used: [id number] Normal [facility] Basic metabolic 1998 panelon 12-07-2022 Anion gap [Moles/Vol] 4 mmol/L 3 - 13 mmol/L [facility] Calcium [Mass/Vol] 7.2 mg/dL Low 8.4 - 10. 4 mg/dL [facility] Chloride [Moles/Vol] 110 mmol/L High 98 - 10 7 mmol/L [facility] CO2 [Moles/Vol] 24 mmol/L 22 - 30 mmol/L [facility] Creatinine [Mass/Vol] 0.63 mg/dL 0.52 - 1.04 mg/dL [facility] GFR/1.73 sq M.predicted MDRD (S/P/Bld) [Vol rate/Area] - PINF [facility] Comment on above: Calculation based on the Chronic Kidney Disease Epidemiology Collaboration (CKD-EPI) equation refit without adjustment for race Glucose [Mass/Vol] 182 mg/dL High 70 - 100 mg/dL [facility] Interpretation and review of laboratory results Abnormal [facility] Potassium [Moles/Vol] 3.3 mmol/L Low 3.5 - 5.1 mmol/L [facility] Sodium [Moles/Vol] 137 mmol/L 135 - 145 mmol/L [facility] Urea nitrogen [Mass/Vol] 14 mg/dL 7 - 17 mg/dL [facility] CBC panel Auto (Bld)Ordered By: Wedny Bruce on 12-07-2022 Erythrocyte distribution width (RBC) [Ratio] 13.8 % 11.5 - 14.5 % [facility] Hematocrit (Bld) [Volume fraction] 33.0 % Low 35.0 - 47.0 % [facility] Hemoglobin (Bld) [Mass/Vol] 10.6 g/dL Low 11.7 - 16.0 g/dL [facility] Interpretation and review of laboratory results Abnormal [facility] MCH (RBC) [Entitic mass] 29.3 pg 26.0 - 34.0 pg [facility] MCHC (RBC) [Mass/Vol] 32.2 % 32.0 - 36.0 % [facility] MCV (RBC) [Entitic vol] 90.8 fL 80.0 - 98.0 fL [facility] Platelet mean volume (Bld) [Entitic vol] 8.1 fL 7.4 - 12.4 fL [facility] Platelets (Bld) [#/Vol] 230 10*3/uL 140 - 440 10*3/uL [facility] RBC (Bld) [#/Vol] 3.63 10*6/uL Low 3.8 - 5.20 10*6/uL [facility] WBC (Bld) [#/Vol] 10.7 10*3/uL 3.6 - 10.7 10*3/uL [facility] Comprehensive metabolic 1998 panelon 12-07-2022 Albumin [Mass/Vol] 3.4 g/dL Low 3.5 - 5.0 g/dL [facility] ALP [Catalytic activity/Vol] 96 U/L 38 - 126 U/L [facility] ALT [Catalytic activity/Vol] 15 U/L 0 - 34 U/L [facility] Anion gap [Moles/Vol] 4 mmol/L 3 - 13 mmol/L [facility] AST [Catalytic activity/Vol] 40 U/L 15 - 46 U/L [facility] Bilirubin [Mass/Vol] 0.5 mg/dL 0.2 - 1 .3 mg/dL [facility] Calcium [Mass/Vol] 7.5 mg/dL Low 8.4 - 10. 4 mg/dL [facility] Chloride [Moles/Vol] 105 mmol/L 98 - 10 7 mmol/L [facility] CO2 [Moles/Vol] 27 mmol/L 22 - 30 mmol/L [facility] Creatinine [Mass/Vol] 0.76 mg/dL 0.52 - 1.04 mg/dL [facility] GFR/1.73 sq M.predicted MDRD (S/P/Bld) [Vol rate/Area] 79.8 mL/min/{1.73_m2} - PINF [facility] Comment on above: Calculation based on the Chronic Kidney Disease Epidemiology Collaboration (CKD-EPI) equation refit without adjustment for race Glucose [Mass/Vol] 188 mg/dL High 70 - 100 mg/dL [facility] Interpretation and review of laboratory results Abnormal [facility] Potassium [Moles/Vol] 3.4 mmol/L Low 3.5 - 5.1 mmol/L [facility] Protein [Mass/Vol] 6.2 g/dL Low 6.3 - 8.2 g/dL [facility] Sodium [Moles/Vol] 136 mmol/L 135 - 145 mmol/L [facility] Urea nitrogen [Mass/Vol] 10 mg/dL 7 - 17 mg/dL [facility] Hemoglobin (Bld) [Mass/Vol]O rdered By: Humphrey Juarez on 12-07-2022 Hematocrit (Bld) [Volume fraction] 33.8 % Low 35.0 - 47.0 % [facility] Interpretation and review of laboratory results Abnormal [facility] Hemoglobin (Bld) [Mass/Vol]o n 12-07-2022 Hematocrit (Bld) [Volume fraction] 33.6 % Low 35.0 - 47.0 % [facility] Interpretation and review of laboratory results Abnormal [facility] Hemoglobin (Bld) [Mass/Vol]O rdered By: Rosey Viera on 12-07-2022 Hematocrit (Bld) [Volume fraction] 32.0 % Low 35.0 - 47.0 % [facility] Interpretation and review of laboratory results Abnormal [facility] Laboratory - Chemistry and C hemistry - challengeon 12-07-2022 Magnesium [Mass/Vol] 1.3 mg/dL Low 1.6 - 2 .3 mg/dL [facility] Glucose [Mass/Vol] 179 mg/dL High 70 - 100 mg/dL [facility] Glucose [Mass/Vol] 158 mg/dL High 70 - 100 mg/dL [facility] Glucose [Mass/Vol] 160 mg/dL High 70 - 100 mg/dL [facility] Laboratory - Hematology and Cell countsOrdered By: Humphrey Juarez on 12-07-2022 Hemoglobin (Bld) [Mass/Vol] 10.9 g/dL Low 11.7 - 16.0 g/dL [facility] Laboratory - Hematology and Cell countson 12-07-2022 Hemoglobin (Bld) [Mass/Vol] 11.0 g/dL Low 11.7 - 16.0 g/dL [facility] Laboratory - Hematology and Cell countsOrdered By: Rosey Viera on 12-07-2022 Hemoglobin (Bld) [Mass/Vol] 10.4 g/dL Low 11.7 - 16.0 g/dL [facility] Magnesium [Mass/Vol]on 12-07 Interpretation and review of laboratory results Abnormal [facility] No Panel Informationon 12-07 Interpretation and review of laboratory results Abnormal [facility]formed by: [facility], [address] [place] [address] CLIA ID: [id number] [facility] Interpretation and review of laboratory results Abnormal [facility] Performed by: [facility], [address] [facility] [address] CLIA ID: [id number] [facility] Interpretation and review of laboratory results Abnormal [facility] Performed by: [facility], [address] [address] CLIA ID: [id number] [facility] Basic metabolic 1998 panelon 12-06-2022 Anion gap [Moles/Vol] 2 mmol/L Low 3 - 13 mmol/L [facility] Calcium [Mass/Vol] 7.9 mg/dL Low 8.4 - 10. 4 mg/dL [facility] Chloride [Moles/Vol] 105 mmol/L 98 - 10 7 mmol/L [facility] CO2 [Moles/Vol] 26 mmol/L 22 - 30 mmol/L [facility] Creatinine [Mass/Vol] 0.68 mg/dL 0.52 - 1.04 mg/dL [facility] GFR/1.73 sq M.predicted MDRD (S/P/Bld) [Vol rate/Area] 88.7 mL/min/{1.73_m2} - PINF [facility] Comment on above: Calculation based on the Chronic Kidney Disease Epidemiology Collaboration (CKD-EPI) equation refit without adjustment for race Glucose [Mass/Vol] 169 mg/dL High 70 - 100 mg/dL [facility] Interpretation and review of laboratory results Abnormal [facility] Potassium [Moles/Vol] 3.5 mmol/L 3.5 - 5.1 mmol/L [facility] Sodium [Moles/Vol] 134 mmol/L Low 135 - 145 mmol/L [facility] Urea nitrogen [Mass/Vol] 18 mg/dL High 7 - 17 mg/dL [facility] CBC panel Auto (Bld)Ordered By: Donavan Hernandez on 12-06-2022 Erythrocyte distribution width (RBC) [Ratio] 13.7 % 11.5 - 14.5 % [facility] Hematocrit (Bld) [Volume fraction] 33.4 % Low 35.0 - 47.0 % [facility] Hemoglobin (Bld) [Mass/Vol] 11.1 g/dL Low 11.7 - 16.0 g/dL [facility] Interpretation and review of laboratory results Abnormal [facility] MCH (RBC) [Entitic mass] 29.7 pg 26.0 - 34.0 pg [facility] MCHC (RBC) [Mass/Vol] 33.2 % 32.0 - 36.0 % [facility] MCV (RBC) [Entitic vol] 89.5 fL 80.0 - 98.0 fL [facility] Platelet mean volume (Bld) [Entitic vol] 8.4 fL 7.4 - 12.4 fL [facility] Platelets (Bld) [#/Vol] 233 10*3/uL 140 - 440 10*3/uL [facility] RBC (Bld) [#/Vol] 3.73 10*6/uL Low 3.8 - 5.20 10*6/uL [facility] WBC (Bld) [#/Vol] 9.8 10*3/uL 3.6 - 10.7 10*3/uL [facility] Hemoglobin (Bld) [Mass/Vol]o n 12-06-2022 Hematocrit (Bld) [Volume fraction] 36.6 % 35.0 - 47.0 % [facility] Interpretation and review of laboratory results Normal [facility] Hematocrit (Bld) [Volume fraction] 34.3 % Low 35.0 - 47.0 % [facility] Interpretation and review of laboratory results Abnormal [facility] Hemoglobin (Bld) [Mass/Vol]O rdered By: Lizeth Mckeon on 12-06-2022 Hematocrit (Bld) [Volume fraction] 33.9 % Low 35.0 - 47.0 % [facility] Interpretation and review of laboratory results Abnormal [facility] Iron and Iron binding capaci ty panelon 12-06-2022 Interpretation and review of laboratory results Normal [facility] Iron [Mass/Vol] 87 ug/dL 37 - 170 ug/dL [facility] Iron binding capacity [Mass/Vol] 298 ug/dL 261 - 497 ug/dL [facility] Iron saturation [Mass fraction] 29 % 15 - 50 % [facility] Laboratory - Chemistry and C hemistry - challengeon 12-06-2022 Glucose [Mass/Vol] 183 mg/dL High 70 - 100 mg/dL [facility] Glucose [Mass/Vol] 258 mg/dL High 70 - 100 mg/dL [facility] Glucose [Mass/Vol] 238 mg/dL High 70 - 100 mg/dL [facility] Glucose [Mass/Vol] 160 mg/dL High 70 - 100 mg/dL [facility] Laboratory - Coagulationon 0 12-06-2022 aPTT Coag (PPP) [Time] 25.4 s 20.0 - 30.5 s [facility] INR Coag (PPP) [Relative time] 1.0 {INR} 0.9 - 1.1 [facility] Comment on above: Recommended Anticoag ulant Therapy: [...] 11.2 s 9.0 - 1 2.0 s [facility] Laboratory - Hematology and Cell countson 12-06-2022 Hemoglobin (Bld) [Mass/Vol] 12.0 g/dL 11.7 - 16.0 g/dL [facility] Hemoglobin (Bld) [Mass/Vol] 11.3 g/dL Low 11.7 - 16.0 g/dL [facility] Laboratory - Hematology and Cell countsOrdered By: Lizeth Mckeon on 12-06-2022 Hemoglobin (Bld) [Mass/Vol] 11.0 g/dL Low 11.7 - 16.0 g/dL [facility] No Panel Informationon 12-06 Interpretation and review of laboratory results Abnormal [facility] Performed by: [facility], [address] [place] [address] CLIA ID: [id number] [facility] Interpretation and review of laboratory results Abnormal [facility] Performed by: [facility], [address] [facility] [address] CLIA ID: [id number] [facility] Interpretation and review of laboratory results Abnormal [facility] Performed by: [facility], [address] [place] [address] CLIA ID: [id number] [facility] Interpretation and review of laboratory results Normal [facility] Interpretation and review of laboratory results Abnormal [facility] Performed by: [facility], [address] [place] [address] CLIA ID: [id number] [facility] Basic metabolic 1998 panelon 12-05-2022 Anion gap [Moles/Vol] 5 mmol/L 3 - 13 mmol/L [facility] Calcium [Mass/Vol] 8.7 mg/dL 8.4 - 10. 4 mg/dL [facility] Chloride [Moles/Vol] 102 mmol/L 98 - 10 7 mmol/L [facility] CO2 [Moles/Vol] 29 mmol/L 22 - 30 mmol/L [facility] Creatinine [Mass/Vol] 0.91 mg/dL 0.52 - 1.04 mg/dL [facility] GFR/1.73 sq M.predicted MDRD (S/P/Bld) [Vol rate/Area] 64.3 mL/min/{1.73_m2} - PINF [facility] Comment on above: Calculation based on the Chronic Kidney Disease Epidemiology Collaboration (CKD-EPI) equation refit without adjustment for race Glucose [Mass/Vol] 260 mg/dL High 70 - 100 mg/dL [facility] Interpretation and review of laboratory results Abnormal [facility] Potassium [Moles/Vol] 4.0 mmol/L 3.5 - 5.1 mmol/L [facility] Sodium [Moles/Vol] 136 mmol/L 135 - 145 mmol/L [facility] Urea nitrogen [Mass/Vol] 26 mg/dL High 7 - 17 mg/dL [facility] Blood type and Crossmatch anastasia reyesl (Bld)on 12-05-2022 ABO group Nom (Bld) O [facility] Blood group antibody screen GEL Ql Negative [facility] D Ag Ql (RBC) Positive [facility] CBC W Auto Differential pane l (Bld)Ordered By: Clayton Lozano on 12-05-2022 Basophils (Bld) [#/Vol] 0.1 10*3/uL 0.0 - 0.2 10*3/uL [facility] Basophils/100 WBC (Bld) 0.7 % 0.0 - 2.0 % [facility] Eosinophils (Bld) [#/Vol] 0.2 10*3/uL 0.0 - 0.5 10*3/uL [facility] Eosinophils/100 WBC (Bld) 2.0 % 1.0 - 6.0 % [facility] Erythrocyte distribution width (RBC) [Ratio] 13.9 % 11.5 - 14.5 % [facility] Hematocrit (Bld) [Volume fraction] 39.3 % 35.0 - 47.0 % [facility] Hemoglobin (Bld) [Mass/Vol] 12.9 g/dL 11.7 - 16.0 g/dL [facility] Interpretation and review of laboratory results Abnormal [facility] Lymphocytes (Bld) [#/Vol] 1.8 10*3/uL 1.0 - 4.3 10*3/uL [facility] Lymphocytes/100 WBC (Bld) 14.3 % Low 20.0 - 40.0 % [facility] MCH (RBC) [Entitic mass] 29.5 pg 26.0 - 34.0 pg [facility] MCHC (RBC) [Mass/Vol] 32.8 % 32.0 - 36.0 % [facility] MCV (RBC) [Entitic vol] 89.8 fL 80.0 - 98.0 fL [facility] Monocytes (Bld) [#/Vol] 1.0 10*3/uL High 0.0 - 0.8 10*3/uL [facility] Monocytes/100 WBC (Bld) 7.6 % 2.0 - 10.0 % [facility] Neutrophils (Bld) [#/Vol] 9.4 10*3/uL High 1.8 - 7.0 10*3/uL [facility] Neutrophils/100 WBC (Bld) 75.4 % 40.0 - 80.0 % [facility] Nucleated RBC/100 WBC (Bld) [Ratio] 0.1 % [facility] Platelet mean volume (Bld) [Entitic vol] 8.6 fL 7.4 - 12.4 fL [facility] Platelets (Bld) [#/Vol] 271 10*3/uL 140 - 440 10*3/uL [facility] RBC (Bld) [#/Vol] 4.37 10*6/uL 3.8 - 5.20 10*6/uL [facility] WBC (Bld) [#/Vol] 12.5 10*3/uL High 3.6 - 10.7 10*3/uL [facility] CBC panel Auto (Bld)on 12-05 Erythrocyte distribution width (RBC) [Ratio] 13.7 % 11.5 - 14.5 % [facility] Hematocrit (Bld) [Volume fraction] 37.9 % 35.0 - 47.0 % [facility] Hemoglobin (Bld) [Mass/Vol] 12.3 g/dL 11.7 - 16.0 g/dL [facility] Interpretation and review of laboratory results Abnormal [facility] MCH (RBC) [Entitic mass] 29.2 pg 26.0 - 34.0 pg [facility] MCHC (RBC) [Mass/Vol] 32.4 % 32.0 - 36.0 % [facility] MCV (RBC) [Entitic vol] 90.1 fL 80.0 - 98.0 fL [facility] Platelet mean volume (Bld) [Entitic vol] 8.3 fL 7.4 - 12.4 fL [facility] Platelets (Bld) [#/Vol] 244 10*3/uL 140 - 440 10*3/uL [facility] RBC (Bld) [#/Vol] 4.21 10*6/uL 3.8 - 5.20 10*6/uL [facility] WBC (Bld) [#/Vol] 11.6 10*3/uL High 3.6 - 10.7 10*3/uL [facility] CT Abdomen and Pelvis W cont rast Anna 12-05-2022 The etiology of the symptoms is not certain. No extravasation of contrast visualized. Report Dictated on Electronically Signed By: Toñito Chandra Electronically Signed Date/Time: 12/05/2022 3:55 PM EDT [facility] [place] RADIOLOGY [facility] Patient Name: RADHA SANDOVAL : [...] soft tissues. Abdominal wall:Ventral hernia fat only. [facility] Tñoito Chandra MD - 12/05/2022 Patient Name: RADHA [...] Electronically Signed Date/Time: 12/05/2022 3:55 PM EDT [facility] Radiology Study observation (narrative) [facility] alth CT Abdomen and Pelvis W cont rast IVOrdered By: Toñito Chandra on 12-05-2022 [facility] Work Phone: Hemoglobin (Bld) [Mass/Vol]o n 12-05-2022 Interpretation and review of laboratory results Normal [facility] Hepatic function 2000 panelo n 12-05-2022 Albumin [Mass/Vol] 4.0 g/dL 3.5 - 5.0 g/dL [facility] ALP [Catalytic activity/Vol] 107 U/L 38 - 126 U/L [facility] ALT [Catalytic activity/Vol] 16 U/L 0 - 34 U/L [facility] AST [Catalytic activity/Vol] 25 U/L 15 - 46 U/L [facility] Bilirubin [Mass/Vol] 0.9 mg/dL 0.2 - 1 .3 mg/dL [facility] Bilirubin.conjugated [Mass/Vol] 0.0 mg/dL 0.0 - 0.3 mg/dL [facility] Protein [Mass/Vol] 7.2 g/dL 6.3 - 8.2 g/dL [facility] Laboratory - Chemistry and C hemistry - challengeon 12-05-2022 Glucose [Mass/Vol] 196 mg/dL High 70 - 100 mg/dL [facility] Glucose [Mass/Vol] 215 mg/dL High 70 - 100 mg/dL [facility] Lipase [Catalytic activity/Vol] 43 U/L 23 - 300 U/L [facility] Laboratory - Coagulationon 0 12-05-2022 aPTT Coag (PPP) [Time] 22.1 s 20.0 - 30.5 s [facility] INR Coag (PPP) [Relative time] 1.0 {INR} 0.9 - 1.1 [facility] Comment on above: Recommended Anticoag ulant Therapy: [...] 11.0 s 9.0 - 1 2.0 s [facility] Laboratory - Hematology and Cell countson 12-05-2022 Hemoglobin (Bld) [Mass/Vol] 12.2 g/dL 11.7 - 16.0 g/dL [facility] No Panel Informationon 12-05 Interpretation and review of laboratory results Abnormal [facility] Performed by: [facility], [address] [place] [address] CLIA ID: [id number] [facility] Interpretation and review of laboratory results Normal [facility] Interpretation and review of laboratory results Abnormal [facility] Performed by: [facility], [address] [place] [address] CLIA ID: [id number] [facility] Interpretation and review of laboratory results Normal [facility] XR CHEST (2 VW)on 09-09-2021 Patient Name: RADHA SANDOVAL Diagnostic Radiology ACCESSION EXAM DATE/TIME PROCEDURE ORDERING PROVIDER [id number] 09/09/2021 10:10 EDT CR Chest PA & LAT MD LOPEZ DARRELL LEROY CPT code 52426 Reason For Exam (CR Chest PA & [...] infiltrate or effusion. Report Dictated on Workstation: [id number] --- Final --- Dictating Physician: MD HELTON YUN ROBERT Signed Date and Time: 09/09/2021 3:48 pm Signed by: MD HELTON YUN ROBERT Transcribed Date and Time: 09/09/2021 3:49 [facility] RAD Vera Helton - 09/09/2021 [id number] Radiology ACCESSION EXAM DATE/TIME PROCEDURE ORDERING PROVIDER [id number] 09/09/2021 10:10 EDT CR Chest PA & LAT MD LOPEZ DARRELL LEROY CPT code 49092 Reason For Exam (CR Chest PA & [...] infiltrate or effusion. Report Dictated on Workstation: [id number] --- Final --- Dictating Physician: MD HELTON YUN ROBERT Signed Date and Time: 09/09/2021 3:48 pm Signed by: MD HELTON YUN ROBERT Transcribed Date and Time: 09/09/2021 3:49 [facility] Work Phone: Radiology Study observation (narrative) [facility] Work Phone: XR CHEST (2 VW)Ordered By: Haven Helton on 09-09-2021 [facility] Work Phone: VL PVR Arterial Doppler Lwr w/o Exerciseon 08-25-2021 VL PVR Arterial Doppler Lwr w/o Exercise Patient Name: RADHA SANDOVAL [facility]#: [id number] Ultrasound ACCESSION EXAM DATE/TIME PROCEDURE ORDERING PROVIDER [id number] 08/25/2021 10:09 EST VL PVR Arterial Doppler [id number] -SOMMER CHATTERJEE Lwr w/o Exercise CPT code 94704 Reason For Exam (VL PVR Arterial Doppler Lwr w/o Exercise) PVD with ulcer of left leg Report [facility] -- Multilevel Lower Extremity Arterial Evaluation Report Patient Radha Sandoval : 1945 Study 08/25/2021 Name: Eduardo (75yrs) Date: Age: 75 Account: [id number] Gender: F Loc: BP: Ordering Physician: Sommer Chatterjee Grader Tender: Clayton Lr RVT Interpreting Physician: Wicho Morales MD -- Location: [facility] -- Indications: PVD with ulcer. -- Conclusions [...] supine position. Images were obtained using a [employer] Cloud vascular ultrasound machine. -- Arterial pressure indices: [...] WICHO MORALES Cardiovascular ACCESSION EXAM DATE/TIME PROCEDURE [id number] 08/25/2021 10:09 EST VL PVR Arterial Doppler Lwr w/o Exercise CPT code 57156 Reason For Exam (VL PVR Arterial Doppler Lwr w/o Exercise) PVD with ulcer of left leg Report [facility] -- Multilevel Lower Extremity Arterial Evaluation Report Patient Radha Sandoval : 1945 Study 08/25/2021 Name: Eduardo (75yrs) Date: Age: 75 Account: [id number] Gender: F Loc: BP: Cardiovascular Report Ordering Physician: Sommer Chatterjee Grader Tender: Clayton Lr RVT Interpreting Physician: Wicho Morales MD -- Location: [facility] -- Indications: PVD with ulcer. -- Conclusions [...] PVR wave (more content not included)... Normal [facility] CULT/STAIN - AEROBIC AND KENNA Scott 08-07-2021 CULT/STAIN - AEROBIC AND ANAEROBIC STAIN [...] <= 2 S Amoxicillin/Clavulanic Acid(LAVINIA) R Normal [facility] Comment on above: Performed By: #### C CARINA #### [address] [id number] [id number] Culture, Anaerobic and Aerob icon 08-07-2021 Aerobic [...] cells/lpf. Rare gram positive cocci in clusters. [facility] Interpretation and review of laboratory results Abnormal [facility] Test Performed by [id number] [place] [address] LAB [facility] CR Chest PA/LATon 04-22-2021 CR Chest PA/LAT Patient Name: RADHA SANDOVAL Diagnostic Radiology ACCESSION EXAM DATE/TIME PROCEDURE ORDERING PROVIDER [id number] 04/22/2021 11:32 EDT CR Chest PA and LAT MD JOHN, SHIV AGRAWAL CPT code 06338 Reason For Exam (CR Chest PA and [...] Transcribed Date and Time: 04/22/2021 11:47 Normal [facility] MG Breast Tomosynthesis Scr Blon 04-22-2021 MG Breast Tomosynthesis Scr Bl Patient [facility]: [id number] Mammography ACCESSION EXAM DATE/TIME PROCEDURE ORDERING PROVIDER [id number] 04/22/2021 11:11 EDT MG Breast Tomosynthesis MD LOPEZ DARRELL BI [facility] TANJA CPT code 21496 66804 Reason For Exam (MG Breast Tomosynthesis BI [...] images: BB's = Nipples; skin lesions Open chicken ranch = Palpable Line = Scar 2D digital [...] 11:29 am Signed by: MD HELTON YUN [facility] OT Bone Density DEXA Axial S [facility] 04-22-2021 OT Bone Density DEXA Axial Skeleton Patient Name: RADHA SANDOVAL Bone Density ACCESSION EXAM DATE/TIME PROCEDURE ORDERING PROVIDER [id number] 04/22/2021 10:45 EDT OT Bone Density DEXA MD JOHN, SHIV Axial Skeleton MELISSA CPT code 67934 Reason For Exam (OT Bone Density DEXA Axial Skeleton) menopause Report DXA BONE DENSITOMETRY: CLINICAL INDICATION: Asymptomatic post-menopausal status COMPARISON: None TECHNIQUE: Quantitative bone mineral densitometry of the hip and lumbar spine was performed with a dual energy x-ray observed absorptiometry device - HoloFlexMinder Horizon W. Regions of interest were obtained [...] recommendations for prevention of bone loss include: 6532-1271 mg calcium intake per day for adults [...] and Follow-up. Christa of [employer] Evidence-Based Summaries. [facility] [employer]. 2017 Bone Density Report Report Dictated on Final Dictating Physician: MD DELVALLE LAUREN B Signed Date and Time: 04/23/2021 8:00 am Signed by: MD DELVALLE LAUREN B Transcribed Date and Time: 04/23/2021 8:01 Normal [facility] ECHO Complete 2D W Doppler W ColorOrdered By: Shiv Lopez on 10-07-2020 TRANSTHORACIC ECHOCARDIOGRAM PATIENT: Radha Sandoval STUDY DATE: 10/07/2020 : 1945 AGE: 75 HT/WT: 170.2 cm (67 117.9 kg in) (259.4 lb) GENDER: F BP: 144 / 89 LOCATION: [facility] PATIENT [facility] STATUS: *ORDERING PHYSICIAN: * Shiv Lopez *READING PHYSICIAN: * Stuart Grier, *METAL MOULDER'S ASSISTANT: * Lizzette Dejesus MD RDCS, AE -- [...] LV ID, ES (more content not included)... [employer] Work Phone: Jone, [facility] Incoming Cardiology Results From Yves/Carley - 10/07/2020 3:44 PM EDT TRANSTHORACIC ECHOCARDIOGRAM PATIENT: Radha Sandoval STUDY DATE: 10/07/2020 : 1945 AGE: 75 HT/WT: 170.2 cm (67 117.9 kg in) (259.4 lb) GENDER: F BP: 144 / 89 LOCATION: [facility] PATIENT [facility] STATUS: *ORDERING PHYSICIAN: * Shiv Lopez *READING PHYSICIAN: * Stuart Grier, *METAL MOULDER'S ASSISTANT: * Lizzette Dejesus MD RDCS, AE -- [...] LV end-diastolic volum (more content not included)... N-1-1 Phone: Echo Complete w/wo Contrasto n 10-07-2020 Echo Complete w/wo Contrast Patient Name: RADHA SANDOVAL Ultrasound ACCESSION EXAM DATE/TIME PROCEDURE ORDERING PROVIDER [id number] 10/07/2020 14:50 EDT Echo Complete w/wo MD JOHN, SHIV AGRAWAL Reason For Exam (Echo Complete w/wo Contrast) edema Report TRANSTHORACIC ECHOCARDIOGRAM PATIENT: Radha Sandoval STUDY DATE: 10/07/2020 : 1945 AGE: 75 HT/WT: 170.2 cm (67 117.9 kg in) (259.4 lb) GENDER: F BP: 144 / 89 LOCATION: [facility] PATIENT [facility] STATUS: *ORDERING PHYSICIAN: * Shiv Lopez *READING PHYSICIAN: * Stuart Grier, *METAL MOULDER'S ASSISTANT: * Lizzette Dejesus MD RDCS, AE -- [...] ED 0.31 (more content not included)... Normal [facility] Basic Metabolic Panelon 01-17 Anion gap [Moles/Vol] 10 mmol/L [place], [place] Calcium [Mass/Vol] 8.7 mg/dL 8.4 - 10. 4 mg/dL [place], [place] Chloride [Moles/Vol] 101 mmol/L 98 - 10 7 mmol/L [place] CO2 [Moles/Vol] 27 mmol/L 22 - 30 mmol/L [place] Creatinine [Mass/Vol] 1.13 mg/dL 0.52 - 1.25 mg/dL [place] EGFR IF NonAfrican Afghan 46.9 mL/min >60 [place] Comment on above: Source- MDRD equatio n with creatinine calibration to IDMS(NKDEP) eGFR not recommended for drug dose adjustment GFR/1.73 sq M predicted among blacks MDRD (S/P/Bld) [Vol rate/Area] 56.8 mL/min/{1.73_m2} >60 [place] Glucose [Mass/Vol] 139 mg/dL High 70 - 100 mg/dL [place] Interpretation and review of laboratory results Abnormal [place] Potassium [Moles/Vol] 4.3 mmol/L 3.5 - 5.1 mmol/L [place] Sodium [Moles/Vol] 137 mmol/L 135 - 145 mmol/L [place] Urea nitrogen [Mass/Vol] 18 mg/dL 7 - 20 mg/dL [place] [facility]Con 02-01-2019 Erythrocyte distribution width (RBC) [Ratio] 13.4 % 11.5 - 14.5 % [place] Hematocrit (Bld) [Volume fraction] 35.1 % 35 - 47 % [place] Hemoglobin (Bld) [Mass/Vol] 11.8 g/dL 11.7 - 16 g/dL [place] MCH (RBC) [Entitic mass] 30.2 pg 26 - 34 pg [place] MCHC (RBC) [Mass/Vol] 33.8 % 32 - 36 % [place] MCV (RBC) [Entitic vol] 89.4 fL 79 - 98 fL M [place], [place] Platelet mean volume (Bld) [Entitic vol] 7.6 fL 7.4 - 10.4 fL [place] Platelets (Bld) [#/Vol] 419 10*3/uL 140 - 440 10*3/uL [place] RBC (Bld) [#/Vol] 3.92 10*6/uL 3.8 - 5.2 10*6/uL [place] WBC (Bld) [#/Vol] 9.4 10*3/uL 3.6 - 10.7 10*3/uL [place], [place] CT CERVICAL SPINE WO LAURA Harmon 02-01-2019 [facility], [facility] Incoming Radiology Results From [facility] - 02/01/2019 7:24 PM EDT Patient Name: RADHA SANDOVAL ---CT--- Exam Date/Time 02/01/2019 18:57:[address] Spine Cervical w/o Contrast Ordering Physician MD CR, DUNCAN Accession Number [id number] CPT4 Codes 50344 () Reason For Exam NECK PAIN FOLLOWING [...] NELSON Transcribed Date and Time: 02/01/2019 7:12 [place], [place] Patient Name: RADHA SANDOVAL ---CT--- Exam Date/Time 02/01/2019 18:57:[address] Spine Cervical w/o Contrast Ordering Physician MD HANKINS ALEKSANDAR Accession Number [id number] CPT4 Codes 89948 () Reason For Exam NECK PAIN FOLLOWING [...] NELSON Transcribed Date and Time: 02/01/2019 7:12 [place], [place] CT HEAD WO CONTRASTon 2018 [facility] Incoming Radiology Results From [facility] - 02/01/2019 7:40 PM EDT Patient Name: RADHA SANDOVAL ---CT--- Exam Date/Time 02/01/2019 18:57:[address] Head or Brain w/o Contrast Ordering Physician MD HANKINS ALEKSANDAR Accession Number [id number] CPT4 Codes 56378 () Reason For Exam HEAD INJURY MILD [...] R Transcribed Date and Time: 02/01/2019 7:35 [place], [place] Patient Name: RADHA SANDOVAL ---CT--- Exam Date/Time 02/01/2019 18:57:[address] Head or Brain w/o Contrast Ordering Physician MD HANKINS ALEKSANDAR Accession Number [id number] CPT4 Codes 63850 () Reason For Exam HEAD INJURY MILD [...] R Transcribed Date and Time: 02/01/2019 7:35 [place], [place] Ethanolon 02-01-2019 Ethanol Lvl <0.010 0 - 0.01 g/dL [place], [place] Comment on above: NOTE: This result is for medical treatment only. Analysis performed using non-forensic procedures. Otheron 02-01-2019 Test Performed by [facility], [address] [place] [id number] [place] [address] Protime/INR & PTTon 02-02-20 19 aPTT Coag (Bld) [Time] 23.9 s 20 - 30.5 s M [place], [place] Comment on above: NOTE: The therapeuti c time for Heparin anticoagulation, based on Xa activity inhibition, is an APTT of 46-80 seconds. INR Coag (PPP) [Relative time] 0.9 {INR} [place], [place] Comment on above: Recommended Anticoag ulant [...] [Time] 9.9 s 9 - 12 s [facility] [place] Comment on above: . TYPE AND SCREENon 02-01-2019 Sodium [Moles/Vol] Positive [place], [place] Comment on above: Test Performed by [facility], [address] [place] [address] Sodium [Moles/Vol] O [place] Sodium [Moles/Vol] Negative [place] Comment on above: Test Performed by [facility], [address] [place] [address] XR CHEST PORTABLEon 02-02-20 19 [facility], [facility] Incoming [facility]iology Results From [facility] - 02/01/2019 7:15 PM EDT Patient Name: RADHA SANDOVAL ---Diagnostic Radiology--- Exam Date/Time 02/01/2019 19:11:56 EDT Exam CR Chest Portable Ordering Physician MD CR, DUNCAN Accession Number [id number] CPT4 Codes 83909 () Reason For Exam TRAUMA, FALL Report [...] R Transcribed Date and Time: 02/01/2019 7:13 [place], [place] Patient Name: RADHA SANDOVAL ---Diagnostic Radiology--- Exam Date/Time 02/01/2019 19:11:56 EDT Exam CR Chest Portable Ordering Physician MD HANKINS ALEKSANDAR Accession Number [id number] CPT4 Codes 00257 () Reason For Exam TRAUMA, FALL Report [...] R Transcribed Date and Time: 02/01/2019 7:13 [facility], [place] XR PELVIS (1-2 VW)on Patient Name: RADHA SANDOVAL ---Diagnostic Radiology--- Exam Date/Time 02/01/2019 19:11:56 EDT Exam CR Pelvis 1 or 2 Views Ordering Physician MD HANKINS ALEKSANDAR Accession Number [id number] CPT4 Codes 85238 () Reason For Exam TRAUMA, FALL Report [...] R Transcribed Date and Time: 02/01/2019 7:12 [facility] [place] [facility] Results From [facility] - 02/01/2019 7:14 PM EDT Patient Name: RADHA SANDOVAL ---Diagnostic Radiology--- Exam Date/Time 02/01/2019 19:11:56 EDT Exam CR Pelvis 1 or 2 Views Ordering Physician MD HANKINS ALEKSANDAR Accession Number [id number] CPT4 Codes 27645 () Reason For Exam TRAUMA, FALL Report [...] R Transcribed Date and Time: 02/01/2019 7:12 [place], [place] Vital Signs Date Time Vital Sign Value Performing Clinician [facility] 03-18-2023 11:02-0400 Body temperature 98.7 [degF] [facility] 03-18-2023 11:02-0400 Diastolic blood pressure 50 mm[Hg] [facility] 03-18-2023 11:02-0400 Heart rate 74 /min [facility] 03-18-2023 11:02-0400 Respiratory rate 18 /min [facility] 03-18-2023 11:02-0400 SaO2% (BldA) [Mass fraction] 96 % [facility] 03-18-2023 11:02-0400 Systolic blood pressure 142 mm[Hg] [facility] 03-15-2023 14:20-0400 Body height 170.18 cm [facility] 03-15-2023 14:20-0400 Body weight 113.21 kg [facility] 03-14-2023 09:34-0400 Body mass index (BMI) [Ratio] 39.1 kg/m2 [facility] 03-03-2023 07:40-0400 Body temperature 98.1 [degF] Tasneem Whaley MD Work Phone: [facility] 03-03-2023 07:40-0400 Diastolic blood pressure 81 mm[Hg] Tasneem Whaley MD Work Phone: [facility] 03-03-2023 07:40-0400 Heart rate 93 /min Tasneem Whaley MD Work Phone: [facility] 03-03-2023 07:40-0400 Respiratory rate 16 /min Tasneem Whaley MD Work Phone: [facility] 03-03-2023 07:40-0400 SaO2% (BldA) [Mass fraction] 94 % Tasneem Whaley MD Work Phone: [facility] 03-03-2023 07:40-0400 Systolic blood pressure 154 mm[Hg] Tasneem Whaley MD Work Phone: [facility] 02-27-2023 14:44-0400 Body mass index (BMI) [Ratio] 36.65 kg/m2 Katia Bridenthal FLIGHT ENGINEER HELICOPTER - SOLAR SITE ASSESSMENT SPECIALIST Work Phone: [facility] 02-27-2023 14:44-0400 Body temperature 99.1 [degF] Katia Bridenthal FLIGHT ENGINEER HELICOPTER - SOLAR SITE ASSESSMENT SPECIALIST Work Phone: [facility] 02-27-2023 14:44-0400 Body weight 106.14 kg Katia Bridenthal FLIGHT ENGINEER HELICOPTER - SOLAR SITE ASSESSMENT SPECIALIST Work Phone: [facility] 02-27-2023 14:44-0400 Diastolic blood pressure 72 mm[Hg] Katia Bridenthal FLIGHT ENGINEER HELICOPTER - SOLAR SITE ASSESSMENT SPECIALIST Work Phone: [facility] 02-27-2023 14:44-0400 Heart rate 93 /min Katia Bridenthal FLIGHT ENGINEER HELICOPTER - SOLAR SITE ASSESSMENT SPECIALIST Work Phone: [facility] 02-27-2023 14:44-0400 Respiratory rate 20 /min Katia Bridenthal FLIGHT ENGINEER HELICOPTER - SOLAR SITE ASSESSMENT SPECIALIST Work Phone: [facility] 02-27-2023 14:44-0400 SaO2% (BldA) [Mass fraction] 92 % Katia Bridenthal FLIGHT ENGINEER HELICOPTER - SOLAR SITE ASSESSMENT SPECIALIST Work Phone: [facility] 02-27-2023 14:44-0400 Systolic blood pressure 136 mm[Hg] Katia Bridenthal FLIGHT ENGINEER HELICOPTER - SOLAR SITE ASSESSMENT SPECIALIST Work Phone: [facility] 02-15-2023 13:07-0400 Body height 170.2 cm Lenard Magallanes DO Work Phone: [employer] [facility] 02-15-2023 13:07-0400 Body mass index (BMI) [Ratio] 35.71 kg/m2 Lenard Magallanes DO Work Phone: [employer] [facility] 02-15-2023 13:07-0400 Body temperature 98.6 [degF] Lenard Magallanes DO Work Phone: [facility] 02-15-2023 13:07-0400 Body weight 103.42 kg Lenard Magallanes DO Work Phone: [employer] [facility] 02-15-2023 13:07-0400 Diastolic blood pressure 76 mm[Hg] Lenard Magallanes DO Work Phone: [facility] 02-15-2023 13:07-0400 Heart rate 75 /min Lenard Magallanes DO Work Phone: [employer] [facility] 02-15-2023 13:07-0400 Respiratory rate 20 /min Lenard Magallanes DO Work Phone: [employer] [facility] 02-15-2023 13:07-0400 Systolic blood pressure 141 mm[Hg] Lenard Magallanes DO Work Phone: [facility] 02-07-2023 11:18-0400 Diastolic blood pressure 72 mm[Hg] Katia Bridenthal FLIGHT ENGINEER HELICOPTER - SOLAR SITE ASSESSMENT SPECIALIST Work Phone: [facility] 02-07-2023 11:18-0400 Systolic blood pressure 146 mm[Hg] Katia Bridenthal FLIGHT ENGINEER HELICOPTER - SOLAR SITE ASSESSMENT SPECIALIST Work Phone: [facility] 02-07-2023 10:39-0400 Body mass index (BMI) [Ratio] 40.34 kg/m2 Katia Bridenthal FLIGHT ENGINEER HELICOPTER - SOLAR SITE ASSESSMENT SPECIALIST Work Phone: [facility] 02-07-2023 10:39-0400 Body temperature 97.3 [degF] Katia Bridenthal FLIGHT ENGINEER HELICOPTER - SOLAR SITE ASSESSMENT SPECIALIST Work Phone: [facility] 02-07-2023 10:39-0400 Body weight 109.95 kg Katia Bridenthal FLIGHT ENGINEER HELICOPTER - SOLAR SITE ASSESSMENT SPECIALIST Work Phone: [facility] 02-07-2023 10:39-0400 Heart rate 88 /min Katia Bridenthal FLIGHT ENGINEER HELICOPTER - SOLAR SITE ASSESSMENT SPECIALIST Work Phone: [facility] 02-07-2023 10:39-0400 Respiratory rate 20 /min Katia Bridenthal FLIGHT ENGINEER HELICOPTER - SOLAR SITE ASSESSMENT SPECIALIST Work Phone: [facility] 02-07-2023 10:39-0400 SaO2% (BldA) [Mass fraction] 96 % Katia Gregenthal FLIGHT ENGINEER HELICOPTER - SOLAR SITE ASSESSMENT SPECIALIST Work Phone: [facility] 12-07-2022 10:03-0400 Diastolic blood pressure 80 mm[Hg] Anusha Velarde MD Work Phone: [facility] 12-07-2022 10:03-0400 Heart rate 72 /min Anusha Velarde MD Work Phone: [facility] 12-07-2022 10:03-0400 Respiratory rate 18 /min Anusha Velarde MD Work Phone: [facility] 12-07-2022 10:03-0400 SaO2% (BldA) [Mass fraction] 96 % Anusha Velarde MD Work Phone: [facility] 12-07-2022 10:03-0400 Systolic blood pressure 162 mm[Hg] Anusha Velarde MD Work Phone: [facility] 12-07-2022 09:50-0400 Body temperature 97.2 [degF] Anusha Velarde MD Work Phone: [facility] 12-07-2022 08:49-0400 Body height 165.1 cm Anusha Velarde MD Work Phone: [facility] 12-07-2022 08:49-0400 Body mass index (BMI) [Ratio] 41.6 kg/m2 Anusha Velarde MD Work Phone: [facility] 12-07-2022 08:49-0400 Body weight 113.4 kg Anusha Velarde MD Work Phone: [facility] 06-30-2022 08:47-0500 Diastolic blood pressure 62 mm[Hg] Shiv Lopez MD Work Phone: [employer] [facility] 06-30-2022 08:47-0500 Heart rate 80 /min Shiv Lopez MD Work Phone: [facility] 06-30-2022 08:47-0500 Systolic blood pressure 125 mm[Hg] Shiv Lopez MD Work Phone: [facility] 06-30-2022 08:16-0500 Body height 165.7 cm Shiv Lopez MD Work Phone: [facility] 06-30-2022 08:16-0500 Body mass index (BMI) [Ratio] 39.96 kg/m2 Shiv Lopez MD Work Phone: [facility] 06-30-2022 08:16-0500 Body weight 109.77 kg Shiv Lopez MD Work Phone: [facility] Encounters Encounter Date Encounter Type Care Provider Facility Start: 01-23-2025 ambulatory Melissa Gukasia OLS Facili ty:[facility] Start: 01-09-2025 ambulatory Melissa Gudla OLS Facili ty:[facility] Start: 12-26-2024 ambulatory Melissa Gudla OLS Facili ty:[facility] Start: 12-24-2024 ambulatory Melissa Gudla Facility:[facility] Start: 12-12-2024 ambulatory Melissa Gudla Facility:[facility] Start: 11-28-2024 End: 11-28-[address] Melissa Reed MD [facility] Work Phone: Start: 11-28-2024 End: 11-28-[address] Melissa Reed MD -[facility] Work Phone: Start: 11-28-[address] Melissa Reed MD -[facility] Work Phone: Start: 11-28-2024 End: 11-28-2024 ambulatory Melissa Gudla Facility:[facility] Start: 11-14-2024 ambulatory Melissa Gudla Facility:[facility] Start: 11-14-[address] Melissa Reed MD -[facility] Work Phone: Start: 11-08-2024 End: 11-08-[address] Melissa Reed MD [facility] Work Phone: Start: 11-08-2024 End: 11-08-[address] Melissa Reed MD -[facility] Work Phone: Start: 11-08-2024 End: 11-08-2024 ambulatory Melissabridgette Vallecilloa Facility:[facility] Start: 10-17-2024 End: 10-17-[address] Melissa Reed MD -[facility] Work Phone: Start: 10-17-2024 End: 10-17-2024 ambulatory Melissa THOMPSON Facility:[facility] Start: 10-03-2024 End: 10-03-[address] Shiv Lopez MD Work Phone: [facility] Work Phone: Start: 10-03-2024 End: 10-03-[address] Melissa Reed MD -[facility] Work Phone: Start: 10-03-2024 End: 10-03-2024 ambulatory Melissabernadine THOMPSON Facility:[facility] Start: 09-23-2024 ambulatory Melissabridgette THOMPSON Facili ty:[facility] Start: 09-23-[address] Melissa Reed MD -[facility] Work Phone: Start: 09-19-2024 End: 09-19-[address] Shiv Lopez MD Work Phone: [facility] Work Phone: Start: 09-19-2024 End: 09-19-[address] Melissa Reed MD -[facility] Work Phone: Start: 09-19-[address] Melissa Reed MD -[facility] Work Phone: Start: 09-19-2024 End: 09-19-2024 ambulatory Melissa Reed Facility:[facility] Start: 09-05-2024 End: 09-05-[address] Shiv Lopez MD Work Phone: [facility] Work Phone: Start: 09-05-2024 End: 09-05-[address] Melissa Reed MD -[facility] Work Phone: Start: 09-05-[address] Melissa Reed MD -[facility] Work Phone: Start: 09-05-2024 End: 09-05-2024 ambulatory Melissa THOMPSON Facility:[facility] Start: 08-22-2024 End: 08-22-[address] Shiv Lopez MD Work Phone: [facility] Work Phone: Start: 08-22-2024 End: 08-22-[address] Melissa Reed MD -[facility] Work Phone: Start: 08-22-2024 End: 08-22-2024 ambulatory Melissa THOMPSON Facility:[facility] Start: 08-08-2024 ambulatory Melissa Brianna Bar ty:[facility] Start: 08-08-[address] Melissa Reed MD -[facility] Start: 08-06-2024 ambulatory Melissa Bar ty:[facility] Start: 08-06-[address] Melissa Reed MD -[facility] Work Phone: Start: 07-31-2024 End: 07-31-[address] Gypsy Argueta MD -Radiology, [facility] Work Phone: Start: 07-31-2024 End: 07-31-2024 ambulatory Gypsy Argueta Facility:[facility] Start: 07-25-2024 ambulatory [facility] Facility [facility] Start: 07-25-[address] Melissa Reed MD -[facility] Work Phone: Start: 07-11-2024 ambulatory [facility] Facility :[facility] Start: 07-11-[address] Melissa Reed MD -[facility] Work Phone: Start: 06-27-2024 End: 06-27-[address] Melissa Reed MD -[facility] Work Phone: Start: 06-27-2024 End: 06-27-2024 ambulatory [facility] Facility:[facility] Start: 06-13-2024 ambulatory [facility] Facility :[facility] Start: 06-13-[address] Melissa Reed MD -[facility] Work Phone: Start: 05-29-2024 End: 05-29-[address] Melissa Reed MD -[facility] Work Phone: Start: 05-29-2024 End: 05-29-2024 ambulatory [facility] Facility:[facility] Start: 05-15-2024 End: 05-15-2024 ambulatory Shiv John Facility:[facility] Start: 05-01-2024 End: 05-01-2024 ambulatory Shiv John Facility:[facility] Start: 04-17-2024 End: 04-17-2024 ambulatory Shiv John Facility:[facility] Start: 04-04-2024 End: 04-04-2024 ambulatory Shiv John Facility:[facility] Start: 04-01-2024 End: 04-01-2024 ambulatory Shiv John Facility:[facility] Start: 03-20-2024 End: 03-20-2024 ambulatory Shiv John Facility:[facility] Start: 03-06-2024 End: 03-06-2024 ambulatory Shiv John Facility:[facility] Start: 02-20-2024 ambulatory Shiv John Facility :[facility] Start: 02-05-2024 End: 02-05-2024 ambulatory Shiv John Facility:[facility] Start: 12-29-2023 End: 12-29-2023 ambulatory Felicia Garcia [facility] Start: 09-29-2023 End: 09-29-2023 ambulatory [facility] Work Phone: Start: 09-29-2023 End: 09-29-2023 Departed Referred [facility] Work Phone: Start: 09-14-2023 End: 09-14-2023 ambulatory [facility] Work Phone: Start: 09-14-2023 End: 09-14-2023 Departed [facility]erred [facility] Work Phone: Start: 08-31-2023 End: 08-31-2023 ambulatory [facility] Work Phone: Start: 08-31-2023 End: 08-31-2023 Departed [facility]erred [facility] Work Phone: Start: 08-17-2023 End: 08-17-2023 ambulatory [facility] Work Phone: Start: 08-17-2023 End: 08-17-2023 Departed [facility]erred [facility] Work Phone: Start: 08-14-2023 End: 08-14-2023 Departed [facility] Work Phone: Start: 07-31-2023 End: 07-31-2023 Departed [facility] Work Phone: Start: 07-17-2023 End: 07-17-2023 Departed [facility] Work Phone: Start: 07-03-2023 End: 07-03-2023 Departed [facility] Work Phone: Start: 07-03-2023 Registered Referred [facility] Work Phone: Start: 06-23-2023 End: 06-23-2023 ambulatory [facility] Work Phone: Start: 06-23-2023 End: 06-23-2023 Departed Referred [facility] Start: 06-20-2023 End: 06-20-2023 ambulatory [facility] Work Phone: Start: 06-20-2023 End: 06-20-2023 Departed [facility] Work Phone: Start: 06-20-2023 Registered Referred [facility] Work Phone: Start: 05-10-2023 End: 05-10-2023 ambulatory [facility] Work Phone: Start: 05-10-2023 End: 05-10-2023 Departed Referred [facility] Start: 05-10-2023 Registered Referred [facility] Start: 05-01-2023 End: 05-01-2023 ambulatory [facility] Work Phone: Start: 05-01-2023 End: 05-01-2023 Departed Referred [facility] Start: 04-04-2023 End: 04-04-2023 ambulatory [facility] Work Phone: Start: 04-04-2023 End: 04-04-2023 Departed Referred [facility] Start: 03-20-2023 End: 03-20-2023 Departed Referred [facility] Start: 03-03-2023 End: 03-18-2023 Evaluation and management of inpatient [facility] Start: 02-28-2023 End: 03-03-2023 ambulatory Imelda Mann RN [facility] Start: 02-28-2023 Patient encounter procedure Imelda Mann RN [facility] Start: 02-28-2023 End: 03-03-2023 Emergency department patient visit Tasneem Whaley MD Work Phone: [facility] Comment on above: LING (acute kidney in jury) (CMS/HCC) (HCC) (Primary Dx); Pyelonephritis; Polypharmacy; Insomnia, unspecified type; Pressure ulcer of right buttock, stage 3 (HCC) Start: 02-27-2023 End: 02-27-2023 ambulatory [facility] Start: 02-27-2023 End: 02-27-2023 Office outpatient visit 25 minutes Katia Granados APRN - SOLAR SITE ASSESSMENT SPECIALIST Work Phone: [facility] Comment on above: Diabetes mellitus [...] type Start: 02-23-2023 ambulatory Nan Bush RN [facility] Start: 02-23-2023 Patient encounter procedure Nan Bush RN [facility] Start: 02-15-2023 End: 02-15-2023 Subsequent hospital visit by physician Lenard Magallanes DO Work Phone: [facility] Comment on above: Arrived Start: 02-15-2023 End: 02-15-2023 ambulatory LENARD MAGALLANES [facility] Start: 02-07-2023 End: 02-07-2023 Office outpatient visit 15 minutes Katiajareth Granados FLIGHT ENGINEER HELICOPTER - SOLAR SITE ASSESSMENT SPECIALIST Work Phone: [facility] Comment on above: Wound of right butto ck, subsequent encounter (Primary Dx); Chronic left shoulder pain Start: 02-07-2023 End: 02-07-2023 ambulatory SHIV LOPEZ [facility] Start: 01-25-2023 ambulatory Colette Poole RN [facility] Start: 01-25-2023 Patient encounter procedure Colette Poole RN [facility] Start: 01-12-2023 Refill Katia Kylah thal FLIGHT ENGINEER HELICOPTER - SOLAR SITE ASSESSMENT SPECIALIST Work Phone: [facility] Comment on above: Vitamin D deficiency ; Acquired hypothyroidism; Chronic left shoulder pain; Restless legs syndrome (RLS) Start: 12-08-2022 Refill Katia Kylah ley FLIGHT ENGINEER HELICOPTER - SOLAR SITE ASSESSMENT SPECIALIST Work Phone: [facility] Comment on above: Hyperlipidemia with target LDL less than 70; Acquired hypothyroidism; Chronic left shoulder pain Start: 12-05-2022 ambulatory Sruthi Burns RN [facility] Start: 12-05-2022 Patient encounter procedure Sruthi Burns RN [facility] Start: 12-05-2022 End: 12-07-2022 Emergency department patient visit Anusha Velarde MD Work Phone: [facility] Comment on above: Acute lower GI bleed ing (Primary Dx); Rectal bleeding Start: 10-05-2022 Telephone encounter Shiv James MD Work Phone: [facility] Comment on above: Results Start: 08-12-2022 Refill Shiv Lopez MD Work Phone: [facility] Start: 07-26-2022 Refill Shiv Lopez MD Work Phone: [facility] Start: 07-18-2022 Refill Katia Montero thal FLIGHT ENGINEER HELICOPTER - SOLAR SITE ASSESSMENT SPECIALIST Work Phone: [facility] Comment on above: Vitamin D deficiency Start: 07-11-2022 Refill Shiv Lopez MD Work Phone: [facility] Start: 07-08-2022 [facility]ulatory [facility] Start: 07-08-2022 Patient encounter procedure [facility] Comment on above: Trauma (Primary Dx) Start: 07-07-2022 Telephone encounter Devendra ramos MD Work Phone: [facility] [place] Comment on above: Reschedule (07/08/22 ) Start: 06-30-2022 End: 06-30-2022 Office outpatient visit 25 minutes Shiv Lopez MD Work Phone: [facility] Comment on above: Uncontrolled type 2 diabetes [...] by physician Shiv Lopez MD Work Phone: [facility] Comment on above: Dyspnea on exertion Start: 08-25-2021 End: 08-25-2021 Subsequent hospital visit by physician Sommer Chatterjee DPM Work Phone: [facility] Start: 11-05-2020 End: 11-05-2020 Subsequent hospital visit by physician Shiv Lopez MD Work Phone: [facility] [place] [facility] Start: 10-07-2020 End: 10-07-2020 Subsequent hospital visit by physician Shiv Lopez MD Work Phone: [facility] Comment on above: Localized edema Start: 09-29-2020 End: 09-29-2020 Subsequent hospital visit by physician Shiv Lopez Work Phone: [facility] [place] [facility] Start: 09-08-2020 End: 09-08-2020 Subsequent hospital visit by physician Shiv Lopez Work Phone: [facility] [place] [facility] Start: 09-01-2020 End: 09-01-2020 Subsequent hospital visit by physician Roseanne Roberts Work Phone: [facility] [facility] Start: 08-18-2020 End: 08-18-2020 Subsequent hospital visit by physician Shiv Lopez Work Phone: [facility] Start: 07-31-2020 End: 07-31-2020 Subsequent hospital visit by physician Shiv Lopez Work Phone: [facility] Start: 02-01-2019 End: 02-01-2019 Emergency department patient visit Dick T Db Work Phone: [facility] Dept Comment on above: Injury of head, init ial encounter (Primary Dx); Laceration of scalp, initial encounter; Strain of neck muscle, initial encounter Start: 01-18-2019 End: 01-18-2019 Subsequent hospital visit by physician Darya Berrios Work Phone: [facility] Laboratory Start: 12-21-2016 Ambulatory Shiv Vaughn [facility] Procedures Date Procedure Procedure Detail Performing [...] 02-28-2023 Glucose quantitative blood xcpt reagent strip aGbrielle Finch MD Work Phone: Start: 02-28-2023 Glucose [...] et rgnt non-auto w/o micrscp Katia Bridenthal FLIGHT ENGINEER HELICOPTER - SOLAR SITE ASSESSMENT SPECIALIST Work Phone: Start: 02-27-2023 Glucose [Mass/volume ] in Serum or Plasma Katia Bridenthal FLIGHT ENGINEER HELICOPTER - SOLAR SITE ASSESSMENT SPECIALIST Work Phone: Start: 02-27-2023 Thyrotropin [Units/v olume] [...] Glucose quantitative blood xcpt reagent strip Gabrielle Fnich MD Work Phone: Start: 12-07-2022 Comprehensive metabo lic panel Bertram Durbin MD Work Phone: Start: 12-06-2022 Glucose quantitative blood xcpt reagent strip Gabrielle Finch MD Work Phone: Start: 12-06-2022 Blood count hematocrit Bertram Durbin MD Work Phone: Start: 12-06-2022 Blood count hematocrit Bertram Durbin MD Work Phone: Start: 12-06-2022 Glucose quantitative blood xcpt reagent strip Gabrielle iFnch MD Work Phone: Start: 12-06-2022 End: 12-06-2022 Basic metabolic panel calcium total Bertram Durbin MD Work Phone: Start: 12-06-2022 Blood count complete automated Bertram Durbin MD Work Phone: Start: 12-05-2022 Glucose quantitative blood xcpt reagent strip Anusha Velrade MD Work Phone: Start: 12-05-2022 Blood count [...] 12-05-2022 Basic metabolic panel calcium total Ashley L Janas PA Work Phone: Start: 06-30-2022 Lipid 1996 panel [...] Radiologic exam ches t single view [employer] Work Phone: Start: 02-01-2019 Radiologic examinati on pelvis 1/2 views [employer] Work Phone: Start: 02-01-2019 Ct cervical spine w/ o contrast material [employer] Work Phone: Start: 02-01-2019 Ct head/brain w/o co ntrast material [employer] Work Phone: Start: 02-01-2019 Blood typing serologic abo Dick Bakerwood Work Phone: Start: 02-01-2019 Assay of ethanol Dick Edie Db Work Phone: Start: 02-01-2019 Basic metabolic pane l calcium total Dick Ace Work Phone: Start: 02-01-2019 Blood count complete automated Dick Ace Work Phone: Start: 02-01-2019 PROTIME/INR & PTT Yobany Ace Work Phone: Plan of Treatment Date Care Activity Detail Author Start: 09-23-2024 Urine culture Urine Culture [facility] Start: 09-23-2024 [facility] Start: 09-05-2024 Urine culture Urine Culture [facility] Start: 09-05-2024 [facility] Start: 02-28-2024 Thyroid stimulating hormone measurement TSH Level [facility] Start: 02-18-2024 Influenza vaccination Influenza Vacc ine (#1) [facility] Start: 02-08-2024 COVID-19 Vaccine (3 - Booster for Brian series) COVID-19 Vaccine (3 - Booster for Brian series) [facility] Comment on above: Postponed from 06/21 (Patient Refused) Start: 02-08-2024 DTaP/Tdap/Td Vaccine s (1 - Tdap) DTaP/Tdap/Td Vaccines (1 - Tdap) [facility] Comment on above: Postponed from 08/27 (Patient Refused) Start: 02-08-2024 Hepatitis C screening Hepatitis C Sc reening [facility] Comment on above: Postponed from 08/27 (Patient Refused) Start: 02-08-2024 Zoster Vaccines (2 o f 2) Zoster Vaccines (2 of 2) [facility] Comment on above: Postponed from 05/26 (Patient Refused) Start: 08-10-2023 Depression Monitoring Depression Mon itoring [facility] Start: 08-10-2023 [facility] Start: 06-30-2023 Lipid panel Lipid Panel [facility] Start: 06-30-2023 Thyroid stimulating hormone measurement TSH Level [facility] Start: 06-30-2023 Urine screening for protein Diabetes: Urine Protein Screening [facility] Start: 06-19-2023 Medicare Advantage Annual Wellness Visit Medicare Advantage Annual Wellness Visit [facility] Start: 06-14-2023 [facility] Start: 04-27-2023 End: 04-27-2023 Patient encounter procedure [facility] Start: 04-27-2023 [facility]resssion [facility] Start: 04-08-2023 Blood chemistry [facility] Start: 04-01-2023 Blood chemistry [facility] Start: 03-25-2023 Blood chemistry [facility] Start: 03-20-2023 SARS-CoV-2 (COVID-19 ) Ag [Presence] in Respiratory specimen by Rapid immunoassay [facility] Start: 03-19-2023 Development of care plan [facility] Start: 03-18-2023 Patient discharge [facility] Start: 03-17-2023 End: 03-17-2023 [facility] Start: 03-17-2023 Microbial culture, routine Wound Culture [facility] Start: 03-17-2023 Bacterial nucleic ac id assay [facility] Start: 03-13-2023 [facility] Start: 03-06-2023 Referral to automotive wholesale parts advisor [facility] Start: 03-04-2023 Development of care plan [facility] Start: 03-03-2023 Admission procedure [facility] Start: 03-03-2023 Measuring intake and output [facility] Start: 03-03-2023 Patient referral to dietitian [facility] Start: 03-03-2023 Referral to occupational therapist [facility] Start: 03-03-2023 Referral to service [facility] Start: 03-03-2023 Vital signs measurements [facility] Start: 03-03-2023 [facility] Start: 03-03-2023 Verification [facility] Start: 03-03-2023 End: 03-03-2023 Patient encounter procedure [facility] Start: 03-03-2023 Patient referral to dietitian [facility] Start: 02-27-2023 End: 02-28-2024 Bacteria identified in Urine by Culture Urine culture (clean catch) Microbiology Routine Urinary tract infection symptoms Expected: 02/27/2023 (Approximate), Expires: 02/28/2024 [facility] Comment on above: Expected: 02/27/2023 (Approximate), Expires: 02/28/2024 Start: 02-27-2023 End: 02-28-2024 CBC W Auto Differential panel - Blood CBC auto differential Lab Routine History of GI bleed Expected: 02/27/2023 (Approximate), Expires: 02/28/2024 [facility] Comment on above: Expected: 02/27/2023 (Approximate), Expires: 02/28/2024 Start: 02-27-2023 End: 02-28-2024 Comprehensive metabolic 1998 panel - Serum or Plasma Comprehensive metabolic panel Lab Routine 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, with long-term current use of insulin, unspecified whether stage 3a or 3b CKD (HCC) Primary hypertension Hypokalemia Expected: 02/27/2023 (Approximate), Expires: 02/28/2024 [facility] [employer] Work Phone: Comment on above: Expected: 02/27/2023 (Approximate), Expires: 02/28/2024 Start: 02-27-2023 End: 02-28-2024 Magnesium [Mass/volume] in Serum or Plasma Magnesium Lab Routine 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, with long-term current use of insulin, unspecified whether stage 3a or 3b CKD (HCC) Hypokalemia Expected: 02/27/2023 (Approximate), Expires: 02/28/2024 [facility] Comment on above: Expected: 02/27/2023 (Approximate), Expires: 02/28/2024 Start: 02-27-2023 End: 02-28-2024 Thyrotropin [Units/volume] in Serum or Plasma TSH Lab Routine Acquired hypothyroidism Expected: 02/27/2023 (Approximate), Expires: 02/28/2024 [facility] Comment on above: Expected: 02/27/2023 (Approximate), Expires: 02/28/2024 Start: 02-27-2023 End: 02-27-2023 Patient encounter procedure 02/27/2023 1:00 PM EDT Office Visit [facility] [address] [place] [id number] Carolina Connolly, FLIGHT ENGINEER HELICOPTER - SOLAR SITE ASSESSMENT SPECIALIST [address] [place] [address] [facility] Start: 02-24-2023 End: 02-24-2023 Patient encounter procedure 02/24/2023 11:20 AM EDT Office Visit [facility] Family Medicine [address] [place] [address] Katia Granados APRN - SOLAR SITE ASSESSMENT SPECIALIST [address] [facility] [place] [address] [facility] Start: 02-22-2023 End: 02-22-2023 Patient encounter procedure 02/22/2023 2:00 PM EDT Appointment [facility] [address] [place] [address] Lenard Magallanes, DO [address] [place] [address] [facility] Start: 02-17-2023 COVID-19 Vaccine ( season) COVID-19 Vaccine ( season) [facility] Start: 02-17-2023 Influenza vaccination Influenza Vacc ine (#1) [facility] Start: 02-14-2023 End: 02-14-2023 Patient encounter procedure 02/14/2023 10:20 AM EDT Office Visit [address] [place] [address] Katia Granados APRN - SOLAR SITE ASSESSMENT SPECIALIST [address] [facility] [place] [address] [facility] Start: 02-01-2023 End: 02-01-2023 Patient encounter procedure 02/01/2023 2:15 PM EDT Office Visit [facility] [address] [facility] [place] [address] Shiv Lopez MD [address] [place] [address] [place] [address] [facility] Start: 01-25-2023 End: 01-25-2023 Patient encounter procedure 01/25/2023 3:00 PM EDT Office Visit [place] [address] [facility] [place] [address] Shiv Lopez MD [address] [place] [address] [place] [address] [facility] Start: 01-03-2023 Hemoglobin A1c measurement Diabetes: Hemoglobin A1C [facility] Start: 10-25-2022 End: 10-25-2022 Patient encounter procedure 10/25/2022 Office Visit Family Medicine Shiv Lopez MD [address] [place], [place] [address] [address] [facility] Start: 09-29-2022 End: 09-29-2022 Patient encounter procedure 09/29/2022 Office Visit [facility] Medicine Shiv Lopez MD [address] [place] [address] [facility] Start: 09-28-2022 Hemoglobin A1c measurement Diabetes: Hemoglobin A1C [facility] Start: 09-09-2022 Creatinine measurement Creatinine mo nitoring [facility] Start: 09-09-2022 Potassium monitoring Potassium monit oring [facility] Start: 09-09-2022 Thyroid stimulating hormone measurement TSH testing [facility] Start: 08-05-2022 Creatinine measurement Creatinine mo nitoring [facility] Start: 08-05-2022 Potassium monitoring Potassium monit oring [facility] Start: 07-08-2022 Depression Monitoring Depression Mon itoring [facility] Start: 06-30-2022 End: 06-30-2023 25-hydroxyvitamin D3 [Mass/volume] in Serum or Plasma Vitamin D 25 hydroxy Lab Routine Vitamin D deficiency Expected: 06/30/2022 (Approximate), Expires: 06/30/2023 [facility] Work Phone: Comment on above: Expected: 06/30/2022 (Approximate), Expires: 06/30/2023 Start: 06-30-2022 End: 06-30-2023 Comprehensive metabolic 1998 panel - Serum or Plasma Comprehensive metabolic panel Lab Routine Uncontrolled type 2 diabetes mellitus with hyperglycemia (HCC) Expected: 06/30/2022 (Approximate), Expires: 06/30/2023 [facility] Comment on above: Expected: 06/30/2022 (Approximate), Expires: 06/30/2023 Start: 06-30-2022 End: 06-30-2023 Hemoglobin A1c/Hemoglobin.total in Blood Hemoglobin A1c Lab Routine Uncontrolled type 2 diabetes mellitus with hyperglycemia (HCC) Expected: 06/30/2022 (Approximate), Expires: 06/30/2023 [facility] Comment on above: Expected: 06/30/2022 (Approximate), Expires: 06/30/2023 Start: 06-30-2022 End: 06-30-2023 Lipid 1996 panel - Serum or Plasma Lipid panel Lab Routine Hyperlipidemia with target LDL less than 70 Expected: 06/30/2022 (Approximate), Expires: 06/30/2023 [facility] Comment on above: Expected: 06/30/2022 (Approximate), Expires: 06/30/2023 Start: 06-30-2022 End: 06-30-2023 Microalbumin/Creatinine panel in random Urine Microalbumin / creatinine urine ratio Lab Routine Uncontrolled type 2 diabetes mellitus with hyperglycemia (HCC) Expected: 06/30/2022 (Approximate), Expires: 06/30/2023 [facility] Comment on above: Expected: 06/30/2022 (Approximate), Expires: 06/30/2023 Start: 06-30-2022 End: 06-30-2023 Thyrotropin [Units/volume] in Serum or Plasma TSH Lab Routine Acquired hypothyroidism Expected: 06/30/2022 (Approximate), Expires: 06/30/2023 [facility] Comment on above: Expected: 06/30/2022 (Approximate), Expires: 06/30/2023 Start: 06-22-2022 Lipid panel [facility] Start: 03-31-2022 Pneumococcal Vaccine : 65+ Years (2 - PCV) Pneumococcal Vaccine: 65+ Years (2 - PCV) [facility] Start: 02-28-2022 End: 02-28-2022 Patient encounter procedure 02/28/2022 Office Visit Family Medicine Shiv Lopez MD [facility] [place] [address] [facility] Start: 02-17-2022 Annual Wellness Visi t (AWV) Annual Wellness Visit (AWV) [facility] Start: 02-16-2022 Hepatitis C screening Hepatitis C emanuel roberts [facility] Comment on above: Postponed from 08/27 (Patient Refused) Start: 02-16-2022 Thyroid stimulating hormone measurement TSH testing [facility] Start: 11-02-2021 Hemoglobin A1c measurement Diabetes: Hemoglobin A1C [facility] Start: 10-01-2021 Creatinine measurement Creatinine mo nitoring [facility] Work Phone: Start: 10-01-2021 Potassium monitoring Potassium monit oring [facility] Work Phone: Start: 09-13-2021 End: 09-13-2021 Patient encounter procedure 09/13/2021 Office Visit Family Medicine Shiv Lopez MD [address] [place] [address], [facility] [place] [address] [facility] Start: 09-02-2021 End: 09-02-2021 Patient encounter procedure 09/02/2021 Office Visit Family Medicine Shiv Lopez MD [address] [place] [address] [place] [address] [facility] Start: 06-24-2021 Thyroid stimulating hormone measurement TSH testing [facility] Work Phone: Start: 06-24-2021 TSH Qn TSH testing [facility] Work Phone: Start: 06-21-2021 COVID-19 Vaccine (3 - Booster for Brian series) COVID-19 Vaccine (3 - Booster for Brian series) [facility] Start: 05-26-2021 Shingles Vaccine (2 of 2) Shingles Vaccine (2 of 2) [facility] Start: 05-26-2021 Zoster Vaccines (2 o f 2) Zoster Vaccines (2 of 2) [facility] Start: 04-20-2021 Creatinine measurement Creatinine mo nitoring [facility] Work Phone: Start: 04-20-2021 Potassium monitoring Potassium monit alfreda [facility] Work Phone: Start: 01-15-2021 Screening for osteoporosis DEXA (modify frequency per FRAX score) [facility] Work Phone: Comment on above: Postponed from 08/27 (Patient Refused) Start: 01-07-2021 Urine screening for protein Diabetes: Urine Protein Screening [facility] Start: 10-12-2020 End: 10-12-2020 Patient encounter procedure 10/12/2020 Office Visit Family Medicine Shiv Lopez MD [address] [facility] [address] [place], [place] [id number] [facility] Start: 10-08-2020 End: 10-08-2020 Patient encounter procedure 10/08/2020 Office Visit Family Shiv Freed MD [address] [facility] [place] [address] [phone] Canceled (Patient) [facility] Comment on above: Canceled (Patient) Start: 10-01-2020 End: 10-01-2020 Office Visit 10/01/2020 Office Visit Family Shiv Freed MD [address] [facility] [address] [place], [place] [id number] [facility] Start: 06-03-2020 Lipid panel Lipid screen [facility] Work Phone: Start: 01-21-2020 A1C test (Diabetic o r Prediabetic) A1C test (Diabetic or Prediabetic) [place], [place] Start: 01-19-2020 TSH testing TSH testing [place], [place] Start: 06-07-2019 DTaP/Tdap/Td vaccine (1 - Tdap) DTaP/Tdap/Td vaccine (1 - Tdap) [place] Comment on above: Postponed from 08/27 (Patient Refused) Start: 05-23-2019 Diabetic retinal exam Diabetic retin al exam [place], [place] Start: 04-12-2019 Lipid screen Lipid screen [place], [place] Start: 02-17-2019 Influenza vaccination Flu vaccine (# 1) [place] Start: 12-05-2018 Annual Wellness Visi t (AWV) Annual Wellness Visit (AWV) [facility] Work Phone: Start: 10-06-2017 [object Object] Diabetic foot exam [place], [place] Start: 10-06-2017 Annual Wellness Visi t (AWV) Annual Wellness Visit (AWV) [place] Start: 03-09-2013 Pneumococcal 65+ yea rs Vaccine (2 of 2 - PCV13) Pneumococcal 65+ years Vaccine (2 of 2 - PCV13) [place] Start: 08-27-2008 DEXA (modify frequen cy per FRAX score) DEXA (modify frequency per FRAX score) [place] Start: 08-27-2008 Pneumococcal 65+ yea rs Vaccine (1 of 2 - PCV13) Pneumococcal 65+ years Vaccine (1 of 2 - PCV13) [place] Start: 2003 RSV Immunization age d 60 or older (1 - 1-dose 60+ series) RSV Immunization aged 60 or older (1 - 1-dose 60+ series) [facility] Start: 08-27-1993 Colon cancer screen colonoscopy Colon cancer screen colonoscopy [place], [place] Start: 08-27-1993 Shingles Vaccine (1 of 2) Shingles Vaccine (1 of 2) [place] Start: 08-27-1962 DTaP/Tdap/Td vaccine (1 - Tdap) DTaP/Tdap/Td vaccine (1 - Tdap) [facility] Start: 08-27-1962 DTaP/Tdap/Td Vaccine s (1 - Tdap) DTaP/Tdap/Td Vaccines (1 - Tdap) [facility] Start: 08-27-1961 Hepatitis C screening Hepatitis C Sc reening [facility] Start: 1959 COVID-19 Vaccine (1 of 2) COVID-19 Vaccine (1 of 2) [facility] Work Phone: Start: 1959 COVID-19 Vaccine (1) COVID-19 Vaccin e (1) [facility] Work Phone: Start: 08-27-1953 Diabetic foot examination Diabetes: Foot Exam [facility] Start: 08-27-1953 Glaucoma screening Diabetes: R etinopathy Screening [facility] Start: 08-27-1953 Preventive dental service Diabetes: Dental Exam [facility] Start: 1943 Hepatitis B Vaccines (1 of 3 - 3-dose series) Hepatitis B Vaccines (1 of 3 - 3-dose series) [facility] Start: 1943 Hepatitis C screening Hepatitis C sc reen [facility] Work Phone: Start: 1943 Thyroid stimulating hormone measurement TSH Level [facility] Dressing Order: Xeroform; Daily; Silicone foam borders (multiple sizes) Dressing Order: Xeroform; Daily; Silicone foam borders (multiple sizes) Wound Ostomy Routine Ordered: 02/15/2023 [facility] Work Phone: Comment on above: Ordered: 02/15/2023 EKG 12 Lead EKG 12 Lead ECG Routine 02/01/2019 7:40 PM EDT [facility] [place] Patient referral [facility] Work Phone: Tissue exam [facility] Work Phone: Comment on above: Release Upon Orderin g for 1 Occurrences starting 12/07/2022, 1 completed Immunizations Immunization Date Immunization Notes Care Provider Fa tena 03-17-2023 Influenza High-Dose Quadrivalent [facility] 03-17-2023 influenza virus vacc ine, unspecified formulation Felicia Garcia LPN [facility] 03-01-2023 Influenza Vac A&B SA Adj quadrivalent (Fluad) vaccine 0.5 mL Tasneem Whaley MD Work Phone: [facility] 04-26-2022 influenza, high dose seasonal, preservative-free Shiv Lopez MD Work Phone: [facility] 04-26-2022 Pneumococcal Conjuga te PCV20, Pf (Prevnar 20) Shiv Lopez MD Work Phone: [facility] 04-26-2022 influenza virus vacc ine, unspecified formulation Katia Granados FLIGHT ENGINEER HELICOPTER - SOLAR SITE ASSESSMENT SPECIALIST Work Phone: [facility] 04-26-2021 COVID-19, Moderna, Primary or Immunocompromised, PF, 100mcg/0.5mL Sommer JARRETTM Work Phone: [facility] Work Phone: 03-31-2021 Influenza, Quadv, adjuvanted, 65 yrs +, IM, PF (Fluad) Sommer Chatterjee DPM Work Phone: [facility] Work Phone: 03-31-2021 pneumococcal polysaccharide vaccine, 23 valent Sommer JARRETTM Work Phone: [facility] Work Phone: 03-31-2021 zoster vaccine recombinant Sommer Chatterjee DPM Work Phone: [facility] Work Phone: 08-27-2020 COVID-19, J&J, PF, 0 .5 mL Shiv Lopez MD Work Phone: [facility] Work Phone: 03-31-2020 influenza virus vacc ine, unspecified formulation Shiv Lopez [facility] Work Phone: 03-31-2020 Influenza, Quadv, adjuvanted, 65 yrs +, IM, PF (Fluad) Shiv Lopez [facility] Work Phone: 06-03-2019 influenza, high dose seasonal, preservative-free Shiv Lopez [facility] 05-25-2018 influenza, high dose seasonal, preservative-free Darya Berrios [facility] 05-13-2013 influenza virus vacc ine, unspecified formulation Darya Berrios [place] 05-13-2013 influenza virus vacc ine, whole virus Shiv Lopez [facility] Work Phone: 03-09-2012 pneumococcal Conjuga te, unspecified formulation Shiv Lopez [facility] Work Phone: 03-09-2012 pneumococcal polysaccharide vaccine, 23 valent Darya Berrios [facility] 03-09-2012 pneumococcal vaccine , unspecified formulation [facility] 04-13-2010 pneumococcal polysaccharide vaccine, 23 valent Darya Berrios [facility] 03-21-2001 pneumococcal polysaccharide vaccine, 23 valdevonte Garrisonine Agustina [place], [place] Payers Date Payer Category Payer Self-pay [id number] 2024 Unknown [id number] 2024 Unknown [id number] 2022 Medicare [employer] MEDICARE ADVANTAGE [employer] MEDICARE [id number] 2022-Present [id number] [place], [place] [address] Medicare HMO [id number] 2020 Medicare [id number] 2020 Medicare [id number] 2018 Medicare [employer]NA MEDICARE HU[employer]NA CHOICE-PPO MEDICARE xxxxxxxxx 2018-Present [address] [address] [place] [address] xxxxxxxxx [id number] Private Health Insurance [facility]/ [facility] [facility] [id number] Unknown Unknown [id number] Unknown [facility] DUAL ACCESS [id number] Unknown [id number] 2.16.840.1.673906.3.579.2. 462 Unknown [id number] 2.16.840.1.131462.3.579.2. 462 Unknown [id number] 2.16.840.1.388940.3.579.2. 462 Unknown [id number] 2.16.840.1.959061.3.579.2. 462 Unknown [id number] 2.16840.1.037575.3.579.2. 462 Unknown [id number] 2.16840.1.996696.3.579.2. 462 Unknown [id number] 2.840.1.777389.3.579.2. 462 Unknown [id number] 2.16840.1.371731.3.579.2. 462 Unknown [id number] 2.840.1.442429.3.579.2. 462 Unknown [id number] 2.840.1.936292.3.579.2. 462 Unknown [id number] 2.16840.1.794916.3.579.2. 462 Unknown [id number] 2.840.1.889845.3.579.2. 462 Unknown [id number] 2.16840.1.996387.3.579.2. 462 Unknown [id number] 2.840.1.484036.3.579.2. 462 Unknown [id number] 2.16840.1.171549.3.579.2. 462 Unknown [id number] 2.16840.1.555844.3.579.2. 462 Unknown [id number] 2.16840.1.403628.3.579.2. 462 Unknown [id number] 2.16840.1.886431.3.579.2. 462 Unknown [id number] 2.16840.1.031555.3.579.2. 462 Unknown [id number] 2.16.840.1.928150.3.579.2. 462 Unknown [id number] 2.16.840.1.280297.3.579.2. 462 Unknown [id number] 2.16.840.1.252696.3.579.2. 462 Unknown [id number] 2.16.840.1.949966.3.579.2. 462 Unknown [id number] 2.16.840.1.507821.3.579.2. 462 Unknown [id number] 2.16.840.1.424126.3.579.2. 462 Unknown [id number] 2.16.840.1.221491.3.579.2. 462 Unknown [id number] 2.16.840.1.829289.3.579.2. 462 Unknown [id number] 2.16.840.1.360097.3.579.2. 462 Unknown [id number] 2.16.840.1.360081.3.579.2. 462 Unknown [id number] 2.16.840.1.933548.3.579.2. 462 Unknown [id number] 2.16.840.1.080795.3.579.2. 462 Social History Date Type Detail Facility Start: 07-13-2020 End: 03-03-2023 Tobacco smoking status CAIS Never smoker [place], [place] Start: 07-13-2020 End: 04-09-2022 Tobacco use and exposure Never used N-1-1 Phone: Start: 07-13-2020 End: 06-30-2022 Alcohol intake Current drinker of alcohol (finding) N-1-1 Phone: Start: 01-13-2015 Alcohol Comment [place], [place] Start: 1945 Sex Assigned At Female N-1-1 Phone: Start: 08-30-2021 End: 02-28-2023 Exposure to SARS-CoV-2 (event) Not sure [facility] Work Phone: Start: 01-18-2019 End: 12-13-2022 Alcohol intake Yes [facility] Sex Assigned At Not on file [facility] Start: 02-01-2019 End: 03-03-2023 Tobacco smoking status NHIS Unknown if ever smoked [facility] Start: 10-14-2020 End: 12-13-2022 Alcohol intake [facility] Start: 02-16-2021 End: 04-26-2022 History SDOH Alcohol Frequency 1 [facility] Work Phone: Start: 02-15-2021 End: 04-26-2022 History SDOH Financial 3 [facility] Work Phone: Start: 02-15-2021 End: 04-26-2022 History SDOH Transport Med 2 [facility] Work Phone: Start: 04-09-2022 Alcohol Comment social [facility] Within the last year , have you been afraid of your partner or ex-partner? No [facility] How often to you hav [...] got money to buy more. Never true [facility] In the past 12 month s, has lack of transportation kept you from medical appointments or from getting medications? No [facility] Start: 12-07-2022 Alcohol Comment social; 1 mixed drink every 2 weeks [facility] Start: 04-07-2022 Gender identity Identifies as female gender (finding) [facility] Start: 04-07-2022 Sexual orientation Heterosexual (finding) [facility] Do you feel stress - tense, restless, nervous, or anxious, or unable to sleep at night because your mind is troubled all the time - these days [OSQ] Only a little [facility] Are you now , , , , never or living with a partner? [employer] [facility] Start: 09-18-2024 End: 10-14-2024 Sex Female (finding) [facility] Medical Equipment Procedure Code Equipment Code Equipment Origin al Text Equipment Identifier Dates Test blood sugar 4 times a day [id number] Start: 03-25-2020 End: 10-01-2020 2 daily [id number] Start: 03-20-2019 Test blood sugar 4 times daily [id number] Start: 01-01-2019 test blood sugar 4 times daily [id number] Start: 01-13-2020 300 each by Does not apply route 4 times daily [id number] Start: 01-01-2019 ASSURE COMFORT LANCETS 30G MISC [id number] Start: 09-07-2016 1 each by In Vit ro route 4 times daily [id number] Start: 01-01-2019 4 times a day [id number] Start: 09-22-2017 2 daily [id number] Start: 01-03-2019 4 times a day [id number] Start: 07-25-2018 1 each by In Vit ro route 4 times daily as needed (patient tests four times daily and as needed) Patient tests QID [id number] Start: 03-01-2021 Test blood sugar 4 times daily [id number] Start: 12-18-2020 1 each by In Vit ro route 4 times daily Accu-check [employer] [id number] Start: 06-22-2021 End: 08-05-2021 Test blood sugar 3 times a day.PLEASE FILL FOR QUIK TEST STRIPS [id number] Start: 09-09-2021 [id number] Start: 01-10-2022 End: 03-03-2023 Goals Date Patient Goal Desired Activity /State Comment on above: Self- Management Aliya n: Obesity/Weight Loss Patient Stated Goal: Weight Loss Barriers to success: none Plan for overcoming my barriers: help from doctor. Encouraged and recommended by provider. Confidence: 5/10 Self-Management Plan: Will strive to achieve goal by 2018 Date goal set: 10/06/16 Patient given educational materials [...] Facility 03-18-2023 Functional status Ambulates;Wilson r;Bathroom Privilege [facility] Work Phone: Mental Status Date Assessment Result Facility 03-18-2023 Cognitive function Voice/Name [facility] Work Phone: 03-18-2023 Cognitive function Appropriate;Tayler fonseca [facility] Work Phone: Clinical Notes 06-30-2022 to 12-29-2023 Felicia Garcia LPN - 12/29/2023 1:02 PM EDTRyolanda Garcia LPN - 12/29/2023 1:02 PM EDTAshia Dumont - 12/29/2023 1:02 PM EDT Note Date & Type Note Facility 12-29-2023 History of Presen t illness Narrative Please schedule AWV. documented in this encounter [facility] 12-29-2023 History of Presen t illness Narrative Please schedule AWV. Called patient---phone number is not working--sent letter by mail. documented in this encounter [facility] 05-19-2023 Note THE PT. WAS SCHEDULE D FOR AN OUTREACH TODAY. EMR REVIEWED. CM CALLED AND SPOKE WITH A STAFF MEMBER AT [facility] AND THE PT. IS STILL [facility]. CM WILL CONTINUE TO FOLLOW-UP WITH THE PT. ONCE SHE IS DISCHARGED TO HOME. [facility] 05-03-2023 Note THE PT. WAS SCHEDULE D FOR AN OUTREACH TODAY. EMR REVIEWED. CM CALLED AND SPOKE WITH A STAFF MEMBER AT [facility] AND THE PT. IS STILL ADMITTED TO THE [facility]. CM WILL CONTINUE TO FOLLOW-UP WITH THE PT. ONCE SHE IS DISCHARGED TO HOME. [facility] 03-29-2023 Note Referral from [employer] Daily Census Report. Patient with recent admit to [facility] 02/28-03/03 with LING/functional decline and was discharged to [facility]F. Patient with several chronic diagnoses. Will send referral to [facility] Shari BARROW, for further chart review and potential ongoing CM. [facility] 03-17-2023 Discharge summary Note Date/Time March 15, 2023 7:15pm [facility] Medical Records Department [address] [place] [address] Discharge Summary 03/15/23 1914 MR#: [id number] Acct: [id number] Name: RADHA SANDOVAL Rep #:[id number] : 1945 77 From: Baljit Jaffe MD PCP: Dr. Shiv Lopez MD Status:ADM IN Location: TCU U- Providers Date of Admission: 03/03/23 Primary Care [...] - Buspar 5mg bid prn, stable chronic snf use, GDR not recommended. 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 * Restless Leg [...] unit/mL subcutaneous solution 19 unit subcut DAILY Cabztgoi43/15/23 insulin lispro 100 unit/mL subcutaneous pen (Humalog [...] for cellulitis bilateral lower extremities. Discharge to [facility] 03/18/2023, intermediate, Part B therapies. Physical [...] and Uncontrolled pain Additional Instructions: Discharge to [facility] 03/18/2023, intermediate, Part B therapies. Meaningful Use Info Meaningful Use Diagnoses (Choose all that apply): None applicable Discharge Plan Admission Admit Date/Time: 03/03/23 13:30 Primary Reason for Your Visit: Debility. Attending Provider: Baljit Jaffe Chi Primary Care Provider: Shiv Lopez Consulting Providers: Omar Huitron Instructions Additional Instructions / Restrictions: Discharge to [facility] 03/18/2023, intermediate, Part B therapies. Discharge [...] Order can be placed): NonSkilled NH/Intermed Care 03/15/23 193 <Electronically signed by Baljit Jaffe MD> Cosigner [...] bid x 10 days, culture pending at [facility] lab. 03/17/23 1545<Electronically signed by Baljit Jaffe MD> Cosigner Signature (if applicable): cc: Dr. Shiv Lopez MD; Dr. Baljit Jaffe MD ~* Signed [facility] Work Phone: 1(529) 504-805509-27-2023 Discharge summary Author Baljit Jaffe [facility] March 15, 2023 7:35pm Note Date/Time March 15, 2023 7:35pm [facility] Medical Records Department [address] [place] [address] Transfer to [facility] Care MR#: [id number] Acct: [id number] Name: RADHA SANDOVAL Rep #:[id number] : 1945 77 From: Baljit Jaffe MD PCP: Dr. Shiv Lopez MD Status:ADM IN Certification of patient admission REQUIRED AT TIME OF ADMISSION. I CERTIFY THAT POST-HOSPITAL ECF SERVICES ARE REQUIRED TO BE GIVEN ON AN IN-PATIENT BASIS BECAUSE OF THE ABOVE NAMED PATIENT'S NEED FOR RESIDENTIAL CARE ON A CONTINUING BASIS FOR THE CONDITION(S) FOR WHICH HE/SHE WAS RECEIVING IN-PATIENT HOSPITAL SERVICES PRIOR TO HIS/HER TRANSFER TO THE F. 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 * Vitamin [...] Depression - Paroxetine 20mg qhs, stable chronic exterminator helper termite use, GDR not recommended. * Restless Leg [...] Instructions Additional Instructions / Restrictions: Discharge to [facility] 03/18/2023, intermediate, Part B therapies. Discharge [...] ALEXI Huitron; Dr. Shiv Lopez MD ~ [facility] Work Phone: 1(910) 393-205009-27-2023 NotePlease send her immunization record [facility]09-20-2023 Consult note Author Shine Rojas [facility] March 08, 2023 11:33am Note Date/Time March 08, 2023 11:33am [facility] Medical Records Department [address] [place] [address] Consultation 03/08/23 1130 MR#: [id number] Acct: [id number] Name: RADHA SANDOVAL Rep #:[id number] : 1945 77 From: Shine Rojas DPM PCP: Dr. Shiv Lopez MD Status:ADM IN Location: [place] [address] Assessment & Plan Assessment/Plan (1) Type 2 [...] controlled today not causing patient any issues. [facility] Medical History Anemia Arthritis Chronic pain Chronic [...] unit/mL subcutaneous solution 19 unit subcut DAILY Wkxbwjed82/15/23 [History Last Taken 03/03/23] insulin lispro 100 [...] applicable): CC: Dr. Shiv Lopez MD; Dr. Bajlit Jaffe MD~ Signed [facility] Work Phone: 1(973) 485-276309-19-2023 Progress note Author Betty Hicks [facility] March 07, 2023 4:16pm Note Date/Time March 07, 2023 3:00pm [facility] Medical Records Department [address] [place] [address] Progress Note - Pharmacy 03/07/23 1456 MR#: [id number] Acct: [id number] Name: RADHA SANDOVAL Rep #:[id number] : 1945 77 From: Betty Hicks PCP: Dr. Shiv Lopez MD Status:ADM IN Location: [facility] TCU RX Drug Regimen Review Subjective/Objective Subjective/Objective: [...] 113 Gm Tube TOPICAL 1 applic BID [facility] Administration Protocol Enoxaparin Sodium 40 mg 03/04/23 06:00 03/07/23 06:43 Enoxaparin 40 Mg/0.4 Ml Syringe SC 40 mg DAILY@0600 [facility] Administration Ergocalciferol 1.25 mg 03/10/23 08:00 Ergocalciferol 1.25 Mg (50, 000 Unit) Capsule PO QWEEK [facility] Hydralazine HCl 25 mg 03/03/23 22:00 03/07/23 [...] 30 Gm Bottle TOPICAL 1 applic BID [facility] Administration Protocol Nystatin/Triamcinolone Acetonide 1 applic 03/03/23 22:00 03/07/23 08:53 Nystatin/Triamcin Cream Tube TOPICAL 1 applic BID [facility] Administration Protocol Paroxetine HCl 20 mg 03/04/23 [...] Cosigner Signature (if applicable): CC: ~ Signed [facility] Work Phone: 1(845) 459-481409-15-2023 History and physical note Author Baljit Jaffe [facility] March 03, 2023 4:39pm Note Date/Time March 03, 2023 3:08pm [facility] Medical Records Department [address] [place] [address] History & Physical Exam 03/03/23 1501 MR#: [id number] Acct: [id number] Name: RADHA SANDOVAL Rep #:[id number] : 1945 77 From: Baljit Jaffe MD PCP: Dr. Shiv Lopez MD Status:ADM IN Location: [facility] TCU06-1 HPI - General General Date of Admission: 03/03/23 Date of Service: 03/03/23 Chief Complaint: Here for rehabilitation. HPI Narrative RADHA SANDOVAL, is a 77 Female who presents with followin02/27/2023 Dr. Shiv Lopez prescribed Augmentin for dysuria, polyuria, low back pain for urinary tract infection. Augmentin not started, symptoms worse, patient presented to ED. 02/28/2023 Admit to [facility]. Low back pain, dysuria, polyuria, weakness. Diabetes with hyperglycemia, weakness, urinary tract infection. IV antibiotics for urinary tract infection. IV fluids, sliding scale insulin for Diabetes Mellitus II. PT/OT for weakness. 03/01/2023 Feels better, weak, pain improved. Continue IV antibiotics. 03/03/2023 Admit to TCU with debility, here for rehabilitation, strengthening, prior to discharge home alone. 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 * Restless Leg syndrome - Mirapex 0.25mg qhs. 03/03/23 1639 <Electronically signed by Baljit Jaffe MD> Cosigner Signature (if applicable): CC: Dr. Shiv Lopez MD; Dr. Baljit Jaffe MD~ Signed [facility] Work Phone: 1(450) 386-117209-15-2023 History of Present illness Narrative* Randi Marquez RN - 03/03/2023 1:08 PM EDT Discharged via ambulance to [facility] * Randi Marquez RN - 03/03/2023 11:19 AM EDT Report called to pippa at [facility] at [phone] * Jelly Paz APRN - SOLAR SITE ASSESSMENT SPECIALIST - 03/02/2023 12:54 PM EDT Images from the original note were not included. Department of Internal Medicine Division of Endocrinology, Diabetes, & Metabolism Endocrinology Note Patient Name: Radha Sandoval : 1945 AGE: 77 y.o. Room/Bed: [facility] A Admission Date: 02/28/2023 Visit Date: 03/02/2023 Reason for Endocrine Consult: DM-Uncontrolled Provider/Team Requesting Consult: Dr. 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 She has been having diarrhea in 5143-9399, smt severe Glimepiride- started in 2015 Trulicity [...] OBJECTIVE: Vitals: 03/01/23 0834 03/01/23 0838 03/01/23 20303/02/23 0810 BP: (!) 159/54 (!) 151/81 BP [...] CHOLHDLRATIO 4 02/16/2021 No results found for: [id number] Lab Results Component Value Date TSH 0.03 (L) 02/27/2023 Radiology reportsas per the Radiologist Radiology: CT abdomen pelvis wo IV contrast Result Date: 02/28/2023 Patient Name: RADHA SANDOVAL : 1945 [facility]#: [id number] ExamDate/Time: 02/28/2023 13:07 Procedure: CT ABDOMEN PELVIS [...] 12/07/2022 Performed by Avery Marshall DO at [facility] ENDOSCOPY EYE SURGERY Bilateral early 90's LUNG REMOVAL, PARTIAL Left ROTATOR CUFF REPAIR Left TONSILLECTOMY Allergy(ies): Allergies Allergen Reactions Codeine Itching Other Percodan Oxycodone Hives Oxycodone-Aspirin Vancomycin Other reaction(s): U Family History: Family History Problem Relation Name Age of Onset Mental illness Mother GHANSHYAM COLEY Depression Mother GHANSHYAM COLYE Heart disease Father LATHA COLEY High Blood [...] the date of this note. * Margaret Altamirano, OT - 03/02/2023 12:01 PM EDT Images from the original note were not included. Occupational Therapy OCCUPATIONAL THERAPY [facility] ED's Treatment Note Name/MRN: Radha Sandoval ([id number]) Date of : 1945 Age: 77 y.o. Room/Bed: B1153/B1153 A Visit #: 1 out of 7 [...] were not included. Hospitalist Progress Note 03/02/2023 [phone]: Please secure chat me for patient care issues. [phone]: Please secure chat [facility] night Hospitalist for any issues. Subjective: Admit Date: 02/28/2023 PCP: Shiv Lopez MD Room#: B1-153/B1-153 A Interval History: Tolerating diet. Remains weak. Still urinating frequently. She denies chest pain,sob, cough, abdominal pain, nausea, vomiting, diarrhea, constipation, fevers, or chills. D/w pt Adult diet Regular; Low Sodium (2 gm); 4 carb choices (60 gm/meal) @[id number]@ 24HR INTAKE/OUTPUT: No intake or output data [...] 8 9 3 LIVER PROFILE: Recent Labs 02/28/232 03/01/23 0344 03/02/23 0400 AST 24 24 [...] 03/03 - Location - [facility] - Pending the following - clinical improvement, [...] Information Primary Emergency Contact: Angel Roger Address: [address] [place] Relation: Child GABRIELLE FINCH MD Division of Hospitalist Medicine [facility] PAGER: Epic chat * Diann Hollis APRN - SOLAR SITE ASSESSMENT SPECIALIST - 03/02/2023 9:31 AM EDT [facility] Geriatric Medicine Inpatient Consult Service Admission Date: 02/28/2023 Assessment Principal Problem: LING (acute kidney injury) (CMS/HCC) ([facility]) Active Problems: Declining functional status Weakness Anxiety Polypharmacy DNR (do not resuscitate) Insomnia Plan Declining functional status -Related to physical deconditioning, UTI, advanced age, diabetes type 2 -Continue PT/OT as able while inpatient -Anticipate d/c to SNF for ongoing daily PT/OT, patient agreeable to go to [facility] Weakness -Multiple risk factors including weakness, [...] contact guard. Ambulated 30 ft x2. Recommending nursing home facility . Review of Systems Constitutional: Negative [...] % liquid, , Topical, Daily PRN, Rosalinda Burrows, FLIGHT ENGINEER HELICOPTER - SOLAR SITE ASSESSMENT SPECIALIST cholecalciferol (Vitamin D3) tablet 1,000 Units, 1,000 [...] 19 Units, SubCUTAneous, q AM, Jelly Paz, FLIGHT ENGINEER HELICOPTER - SOLAR SITE ASSESSMENT SPECIALIST, 19 Units at 03/02/23908 Insulin Lispro (Humalog) injection 0-12 Units, 0-12 Units, SubCUTAneous, TID WC, 2 Units at 03/02/23908 AND [DISCONTINUED] Insulin Lispro (Humalog) injection 0-12 Units, 0-12 Units, SubCUTAneous, Nightly, Gabrielle Finch MD, 4 Units at 02/28/232053 Insulin Lispro (Humalog) injection 6 Units, 6 Units, SubCUTAneous, 4x daily AC & HS, Jelly Paz, FLIGHT ENGINEER HELICOPTER - SOLAR SITE ASSESSMENT SPECIALIST, 6 Units at 03/02/23604 levothyroxine (Synthroid, Levoxyl) [...] 0.03 (L) 02/27/2023 No results found for: [id number] Lab Results Component Value Date VITD25 17 (L) 03/02/2023 Reviewed: allergies, previous encounters, imaging, active problem lists, medications, and labs * Edelmira Hanna - 03/02/2023 8:23 AM EDT Nutrition rescreen completed. Pt referred to RD for uncontrolled DM, and nutrition supplement per Wound Care. * Monet Mcdonnell, PT - 03/01/2023 3:47 PM EDT Physical Therapy Facility/Department: [address] Physical Therapy Initial Evaluation NAME: Radha Sandoval : 1945 Date of Service: 03/01/2023 Discharge Recommendations: Snf Facility, Continue to assess pending progress PT [...] diagnosis was LING (acute kidney injury) (CMS/HCC) ([facility]). Diagnoses of Pyelonephritis, Polypharmacy, Insomnia, unspecified type, and Pressure ulcer of right buttock, stage 3 ([facility]) were also pertinent to this [...] Device: straight cane Transfer Assistance: Independent Active Research Laboratory Manager: Yes Objective Observation/Palpation Posture: Good Observation: [...] were not included. Hospitalist Progress Note 03/01/2023 [phone]: Please secure chat me for patient care issues. [phone]: Please secure chat [facility] Hospitalist for any issues. Subjective: Admit Date: 02/28/2023 PCP: Shiv Lopez MD Room#: [facility] A Interval History: Feels better. Weak. Tolerating diet. Pain markedly improved. She denies chest pain, sob, cough, abdominal pain, nausea, vomiting, diarrhea, constipation, fevers, or chills. D/w pt and Geriatrics separately. Adult diet Regular; Low Sodium (2 gm); 4 carb choices (60 gm/meal) @[id number]@ 24HR INTAKE/OUTPUT: No intake or output data [...] [phone] BMP: Recent Labs 02/27/23 1551 02/28/23 1232 03/01/23 0344 NA -- 130* 137 [...] Extended Emergency Contact Information Primary Emergency Contact: Preattle,Christopher Address: [address] [place] Relation: Child GABRIELLE FINCH MD Division of Hospitalist Medicine [facility] PAGER: Epic chat * Gunner Irizarry Roberts, OT - 03/01/2023 11:54 AM EDT Images from the original note were not included. Occupational Therapy OCCUPATIONAL THERAPY [facility] ED's Initial Evaluation Name/MRN: Radha Sandoval ([id number]) Evaluation Date: 03/01/2023 Date of : 1945 Admission Date: 02/28/2023 11:30 AM Age: 77 y.o. Room/Bed: [facility] A Discharge Recommendation: SNF and Continue to [...] 12/07/2022 Performed by Avery Marshall DO at [facility] ENDOSCOPY EYE SURGERY Bilateral early 90's LUNG REMOVAL, PARTIAL Left ROTATOR CUFF REPAIR Left TONSILLECTOMY Admission Diagnosis: Patient Active Problem List Diagnosis Date Noted LING (acute kidney injury) ([facility]/HCC) (HCC) 02/28/2023 Acute cystitis with hematuria 02/27/2023 Diarrhea 02/27/2023 Wound of right buttock 02/07/2023 Hypokalemia 12/13/2022 Gastrointestinal bleed 12/07/2022 Other chronic sinusitis 10/25/2022 Urinary frequency 10/04/2022 Chronic left shoulder pain 10/04/2022 Diabetes mellitus due to underlying condition with diabetic chronic kidney disease ([facility]) 06/30/2022 DDD (degenerative disc disease), lumbar 06/30/2022 Chronic right-sided low back pain with right-sided sciatica 06/30/2022 Dyspnea on exertion 09/09/2021 Muscle spasms of both lower extremities 09/09/2021 Lymphedema of both lower extremities 08/05/2021 OAB (overactive bladder) 05/06/2021 Localized edema 10/01/2020 Dependent edema 07/13/2020 Uncontrolled type 2 diabetes mellitus with hyperglycemia ([facility]) 01/16/2020 Morbidly obese ([facility]) 01/16/2020 Vitamin D deficiency 01/16/2020 Moderate episode of recurrent major depressive disorder ([facility]) 06/03/2019 Chronic renal insufficiency, stage III (moderate) ([facility]) 06/03/2019 Hyperlipidemia with target LDL [...] Responsibilities: Independent Receives Help From: None Active Research Laboratory Manager: Yes Prior Level of Function ADL [...] of Care supervision is transferred to a [facility] Therapy Services Occupational Therapist. Goals and/or treatment plan was established in collaboration with patient/family/other representatives. documented in this [facility]09-15-2023 Hospital course Narrative* Gabrielle Finch MD [...] wound care RECOMMENDED NEXT STEPS: Transferred to [facility] SNF. Continue close monitoring of BG. [...] gross lesions, rashes LABS: CBC: Recent Labs 03/01/2334303/02/23 0400 03/03/23 0130 WBC 13.8* 9.5 9.0 RBC 4.00 4.16 4.19 HGB 11.5* 11.9 11.6* HCT 34.9* 36.1 35.5 MCV 87.1 86.8 84.8 RDW 13.6 13.7 13.4 PLT 271 252 257 BMP: Recent Labs 03/01/23 0344 03/02/23 0400 03/03/23 0130 NA 137 135 134* K 4.3 4.1 3.7 CL 102 105 102 CO2 26 27 30 BUN 17 15 15 CREATININE 0.96 0.77 0.82 GLUCOSE 123* 97 125* CALCIUM 8.3* 8.4 8.1* ANIONGAP 9 3 2* LIVER PROFILE: Recent Labs 03/01/23 0344 03/02/23 0400 03/03/23 0130 AST 24 22 34 ALT 16 [...] mg) by mouth daily. ergocalciferol 1.25 MG (61026 UT) capsule Commonly known as: Vitamin D-2 [...] Your Medications These medications were sent to [facility] [address] [place], [place] [phone] Hours: Monday to Monday 10 am to [...] Complexity: follow up within 7-14 calendar days (91946) [] Severe Complexity: follow up within 7 calendar days (97502) FOLLOW UP TESTING, PENDING RESULTS OR REFERRALS AT TRANSITIONAL CARE VISIT: [] Yes [] No PENDING STUDIES: No DISPOSITION: SNF FACILITY/HOME CARE AGENCY NAME: [facility] Follow up with [facility] [address] [facility] [address] INSTRUCTIONS TO MA/SW: Please call patient [...] MD 03/03/2023, 5:28 PM documented in this [facility]09-15-2023 NoteDischarge Summary Radha Sandoval : 1945 [...] wound care RECOMMENDED NEXT STEPS: Transferred to [facility] SNF. Continue close monitoring of BG. [...] gross lesions, rashes LABS: CBC: Recent Labs 03/01/2334303/02/23 04003/03/23 013 WBC 13.8* 9.5 9.0 RBC 4.00 4.16 4.19 HGB 11.5* 11.9 11.6* HCT 34.9* 36.1 35.5 MCV 87.1 86.8 84.8 RDW 13.6 13.7 13.4 PLT 271 252 257 BMP: Recent Labs 03/01/2334303/02/23 04003/03/23 013 NA 137 135 134* K 4.3 4.1 3.7 CL 102 105 102 CO2 26 27 30 BUN 17 15 15 CREATININE 0.96 0.77 0.82 GLUCOSE 123* 97 125* CALCIUM 8.3* 8.4 8.1* ANIONGAP 9 3 2* LIVER PROFILE: Recent Labs 03/01/2334303/02/23 04003/03/23 013 AST 24 22 34 ALT 16 [...] mg) by mouth daily. ergocalciferol 1.25 MG (09111 UT) capsule Commonly known as: Vitamin D-2 [...] taking these medications amoxicillin-clavulan (more content not included)...[facility] 03-03-2023 Note* Care Coordination - Ester Lipscomb - 03/03/2023 11:21 AM EDT Discharge med list transmitted to [facility] via [facility] per TCC request. [facility] [id number] Miscellaneous Notes* Restricted notes were excluded * Care Coordination - Jasonclaudia Lipscomb - 03/03/2023 11:21 AM EDT Discharge med list transmitted to [facility] via [facility]port per TCC request. * Care Coordination - Unknown Case Management - 03/03/2023 11:20 AM EDT Patient Choice Patient Name: RADHA SANDOVAL Date of : 1945 All Providers Sent Referral Name: [facility] Address: [address] [place], [place] [id number] [facility] Address: [address] [place] [address] * Care Coordination - Laura Jackson RN - 03/03/2023 9:33 AM EDT Spoke with pt at bedside regarding POA, pt states she is not interested at this time to complete itand would consider completing at [place] - did call Rafaela at [facility] to update her as well. * Care Coordination - COLT Hill - 03/03/2023 8:41 AM EDT Transportation arranged through [facility] by cot set for 10 am shredder picker. Will notify RN and TCC of this in rounds. Notified patient's son via phone of transportation time. SW remains available if any other needs concerns arise. * Care Coordination - Laura Jackson RN - 03/03/2023 7:29 AM EDT Insurance auth obtained for [facility], updated Dr Finch notified via MeetMoi. * Care Coordination - Laura Jackson RN - 03/02/2023 11:15 AM EDT Received a call from Rafaela at [facility], they are able to accept, pt agreeable. 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 Await review and response regarding ability to accept. TCC notified. * Care Coordination - Laura Jackson RN - 03/02/2023 8:21 AM EDT Spoke with pt agreeable for referral to [facility] snf and [facility], [employer] tasked to complete * Home Care - Tasneem Anaya LPN - 03/01/2023 4:25 PM EDT Machine Stamper following case for Discharge Needs. Therapy states SNF, but Patient wants HC instead. * Care Coordination - Laura Jackson RN - 03/01/2023 10:14 AM EDT Care Managment Initial Assessment Date: 03/01/2023 Patient Name: Radha Sandoval : 1945 Patient Information Source of Information: Patient Cognition/Language: WFL - Within Functional Limits Permission given to speak with patient territory service representative/caregiver as indicated: Yes Confirmation of Payer with patient/family: Yes Payer Name: [employer] [place]: No Confirmation of Primary Care Physician: Confirmed [...] Prescription Coverage: Yes Pharmacy Used: [facility] Medication Management: Independent Transportation/Shopping: Independent Transportation Mode: [...] in SNF but would be able to [facility]. [place] liaison following, TCC to assist and follow as needed. Laura Jackson RN * Care Plan - Anaya Carr RN - 02/28/2023 6:10 PM EDT Problem: Pain - Adult Goal: Verbalizes/displays adequate comfort level or baseline comfort level Outcome: Progressing Problem: Safety - Adult Goal: Free from fall injury Outcome: Progressing documented in this [facility]09-15-2023 Note* Care Coordination - Unknown Case Management - 03/03/2023 11:20 AM EDT Patient Choice Patient Name: RADHA SANDOVAL Date of : 1945 All Providers Sent Referral Name: [facility] Address: [address] [place] [address] [facility] Address: [id number] [place], [place] [id number] [place] [id number] Note* Care Coordination - Laura Jackson RN - 03/03/2023 9:33 AM EDT Spoke with pt at bedside regarding POA, pt states she is not interested at this time to complete itand would consider completing at [place] - did call Rafaela at [place] to update her as well. [place] [id number] Note* Care Coordination - COLT Hill - 03/03/2023 8:41 AM EDT Transportation arranged through [facility] by cot set for 10 am shredder picker. Will notify RN and TCC of this in rounds. Notified patient's son via phone of transportation time. SW remains available if any other needs concerns arise. [place] [id number] Note* Care Coordination - Laura Jackson RN - 03/03/2023 7:29 AM EDT Insurance auth obtained for [facility], updated Dr Finch notified via SnapUp Chat. [facility] CenterUztdfr02-03-0783 Note* Care Coordination - Laura Jackson RN - 03/02/2023 11:15 AM EDT Received a call from Rafaela at [facility], they are able to accept, pt agreeable. 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 [phone]: Please secure chat [facility] Hospitalist for any issues. Subjective: Admit Date: 02/28/2023 PCP: Shiv Lopez MD Room#: B1-153/B1-153 A Interval History: Tolerating diet. Remains weak. Still urinating frequently. She denies chest pain, sob, cough, abdominal pain, nausea, vomiting, diarrhea, constipation, fevers, or chills. D/w pt Adult diet Regular; Low Sodium (2 gm); 4 carb choices (60 gm/meal) @NTIT2NENUID@ 24HR INTAKE/OUTPUT: No intake or output data [...] 03/03 - Location - [facility] - Pending the following - clinical improvement, [...] Information Primary Emergency Contact: Angel Roger Address: [address] [place] Relation: Child GABRIELLE FINCH MD Division of Hospitalist Medicine (more content not included)...[facility]09-14-2023 Note* Care Coordination - Ester Lipscomb - 03/02/2023 8:40 AM EDT Referral placed to [facility] via [facility] per TCC request. Await review and response regarding ability to accept. TCC notified. [facility] [id number] NoteReferral placed to [facility] via [facility] per TCC request. Await review and response regarding ability to accept. TCC notified. [facility]09-14-2023 Note* Care Coordination - Laura Jackson RN - 03/02/2023 8:21 AM EDT Spoke with pt agreeable for [facility], [place] [facility] tasked to complete [facility] [id number] NoteSpoke with pt agreeable for referral [facility], [place] [facility] tasked to complete [facility]09-13-2023 Note* Home Care - Tasneem Anaya LPN - 03/01/2023 4:25 PM EDT Machine Stamper following case for Discharge Needs. Therapy states SNF, but Patient wants HC instead. [facility] [id number] Consult note* Rosalinda Burrows APRN - JORGE - 03/01/2023 2:34 PM EDT Images from the original note were not included. [facility] Wound Care CONSULT Note Radha Sandoval AGE: [...] Uncontrolled type 2 diabetes mellitus with hyperglycemia ([facility]) 01/16/2020 Morbidly obese ([facility]) 01/16/2020 Vitamin D deficiency 01/16/2020 Moderate episode of recurrent major depressive disorder ([facility]) 06/03/2019 OAB (overactive bladder) 05/06/2021 Localized edema 10/01/2020 Insomnia 04/06/2015 Dyspnea on exertion 09/09/2021 Muscle spasms of both lower extremities 09/09/2021 Chronic renal insufficiency, stage III (moderate) ([facility]) 06/03/2019 Restless legs syndrome (RLS) [...] Hyperparathyroidism (HCC) Malaise and fatigue Morbid obesity ([facility]) Muscle weakness Nevus, non-neoplastic Pain in limb Pure hypercholesterolemia RLS (restless legs syndrome) Type 2 diabetes mellitus (HCC) Varicella PAST SURGICAL HISTORY Past Surgical History: Procedure Laterality Date APPENDECTOMY CHOLECYSTECTOMY 1979 COLONOSCOPY 06/19/2008 COLONOSCOPY W/ BIOPSIES AND POLYPECTOMY N/A 12/07/2022 Performed by Avery Marshall DO at [facility] ENDOSCOPY EYE SURGERY Bilateral early 90' LUNG [...] tablet 0 ergocalciferol (Vitamin D-2) 1.25 MG (28977 UT) capsule Take 1 capsule (1.25 mg) [...] Care to follow Please follow up at [facility] wound care waverly after hospital discharge. Thank you for the [...] reflectmy own independent evaluation of this patient. [facility] [id number] Consult note* ELSA Rosenbaum CNP - 03/01/2023 2:34 PM EDT Images from the original note were not included. [facility] Wound Care CONSULT Note Radha Sandoval AGE: [...] Uncontrolled type 2 diabetes mellitus with hyperglycemia ([facility]) 01/16/2020 Morbidly obese ([facility]) 01/16/2020 Vitamin D deficiency 01/16/2020 Moderate episode of recurrent major depressive disorder ([facility]) 06/03/2019 OAB (overactive bladder) 05/06/2021 Localized edema 10/01/2020 Insomnia 04/06/2015 Dyspnea on exertion 09/09/2021 Muscle spasms of both lower extremities 09/09/2021 Chronic renal insufficiency, stage III (moderate) ([facility]) 06/03/2019 Restless legs syndrome (RLS) [...] 12/07/2022 Performed by Avery Marshall DO at [facility] ENDOSCOPY EYE SURGERY Bilateral early ' LUNG [...] tablet 0 ergocalciferol (Vitamin D-2) 1.25 MG (54255 UT) capsule Take 1 capsule (1.25 mg) [...] Care to follow Please follow up at [facility] wound care center after hospital discharge. Thank [...] from the original note were not included. [facility] Geriatric Medicine Inpatient Consult Service Admission Date: 02/28/2023 Admission Status: INPATIENT Chief Complaint: "I couldn't get around and they directed me to the hospital because I was peeing constantly from that UTI." Reason for Appointment Geriatrics consulted for "functional decline" Assessment/Plan Principal Problem: LING (acute kidney injury) (CMS/HCC) ([facility]) Active Problems: Declining functional status [...] necessary I recommended follow up at our [facility] at [phone]. Call in 2 weeks for memory (re)testing once acute issue(s) resolve - order placed in [facility] for follow-up Other I deferred full [...] accidents, getting lost. Knows she's here at [facility] due to UTI. States she [...] Healthcare Power ofAttorney: No Financial Power of Equipment Operat0R: No Living Will:No Code Status: DNRCCA - [...] mg, Oral, q6h PRN, 650 mg at 03/01/23634 OR acetaminophen (Tylenol) suppository 650 mg, 650 [...] 12/07/2022 Performed by Avery Marshall DO at [facility] ENDOSCOPY EYE SURGERY Bilateral early 90's LUNG [...] Limits Permission given to speak with patient territory service representative/caregiver as indicated: Yes Confirmation of [...] Prescription Coverage: Yes Pharmacy Used: [facility] Medication Management: Independent Transportation/Shopping: Independent Transportation Mode: [...] recommendations communicated to primary service I used Shoto messaging to message Dr. Finch on 03/01/23 at 12:35 to notify that geriatrics consult note has been completed and to page or call my personal cell with any questions. * Michelle Valle RN - 03/01/2023 9:33 AM EDTAssociated Order(s): IP CONSULT TO CUSTOMER SERVICER This patient is not a new diabetic or new to insulin therapy and therefore does not meet our current criteria for the inpatient diabetes education service. The clinical bedside RN should provide any necessary diabetes education using the Diabetes SurvivalSkills Booklet available on the unit. Please consider a dietary consult if appropriate and if not already ordered. Contact [facility] pharmacist for assistance if a new glucometer or any associated supplies are needed. Thank you. Elder MUÑOZ,BSN,[facility] * Jelly Paz APRN - SOLAR SITE ASSESSMENT SPECIALIST - 03/01/2023 8:03 AM EDTAssociated Order(s): IP CONSULT TO ENDOCRINOLOGY Department of Internal Medicine Division of Endocrinology, Diabetes, & Metabolism Endocrinology Note Patient Name: Radha Sandoval : 1945 AGE: 77 y.o. [facility]: [facility] A Admission Date: 02/28/2023 Visit Date: 03/01/2023 Reason for Endocrine Consult: DM-Uncontrolled Provider/Team Requesting Consult: Dr. Finch PCP: Shiv Lopez MD Outpt Hack Driver: No ASSESSMENT: Type II diabetes with hyperglycemia, with exterminator helper termite insulin use Postoperative hypothyroidism PLAN: Humalog 6 [...] diagnosis. She has been having diarrhea in [id number], smt severe Glimepiride- started in 2015 Trulicity [...] HPI. OBJECTIVE: Vitals: 02/28/23 1744 02/28/23 1810 09202403/01/23 0004 BP: 139/89 (!) 144/65 104/64 (!) [...] CHOLHDLRATIO 4 02/16/2021 No results found for: [id number] Lab Results Component Value Date TSH 0.03 (L) 02/27/2023 Radiology reportsas per the Radiologist Radiology: CT abdomen pelvis wo IV contrast Result Date: 02/28/2023 Patient Name: RAD[facility]OVAL : 1945 [id number] ExamDate/Time: 02/28/2023 13:07 Procedure: CT ABDOMEN PELVIS [...] 12/07/2022 Performed by Avery Marshall DO at [facility] ENDOSCOPY EYE SURGERY Bilateral early 90's LUNG [...] date of this note. documented in this [facility]09-13-2023 NoteHospitalist Progress Note 03/01/20236998401-0188: Please secure chat me for patient care issues. [phone]: Please secure chat [facility] Hospitalist for any issues. Subjective: Admit Date: 02/28/2023 PCP: Shiv Lopez MD Room#: B1-153/[facility]153 A Interval History: Feels better. Weak. Tolerating diet. Pain markedly improved. She denies chest pain, sob, cough, abdominal pain, nausea, vomiting, diarrhea, constipation, fevers, or chills. D/w pt and Geriatrics separately. Adult diet Regular; Low Sodium (2 gm); 4 carb choices (60 gm/meal) @[id number]@ 24HR INTAKE/OUTPUT: No intake or output data [...] 362 278 271 BMP: Recent Labs 02/27/23 1551 02/28/23 1232 03/01/23 0344 NA -- 130* 137 [...] chloride, 75 mL/hr, Last Rate: 75 mL/hr (09/12/23 2227) amLODIPine, 10 mg, Oral, Daily amoxicillin-clavulanate, 1 [...] Contact Information Primary Emergency (more content not included)...[facility] 03-01-2023 Hospital Discharge instructions* Discharge Instructions* [...] You can also try over the counter (DETENTION brand like Nature Made) melatonin 3mg at [...] Information Primary Emergency Contact: Angel Roger Address: [address] [place] Relation: Child Past Surgical History: Past Surgical History: Procedure Laterality Date APPENDECTOMY CHOLECYSTECTOMY 1979 COLONOSCOPY 06/19/2008 COLONOSCOPY W/ BIOPSIES AND POLYPECTOMY N/A 12/07/2022 Performed by Avery Marshall DO at [facility] ENDOSCOPY EYE SURGERY Bilateral early 90's LUNG [...] List * (Principal) LING (acute kidney injury) ([facility]/HCC) ([facility]) Diabetes mellitus due to underlying condition with diabetic chronic kidney disease ([facility]) DDD (degenerative disc disease), lumbar Chronic right-sided low back pain with right-sided sciatica Urinary frequency Chronic left shoulder pain Other chronic sinusitis Gastrointestinal bleed Hypokalemia Wound of right buttock Acute cystitis with hematuria Diarrhea Declining functional status Weakness Anxiety (Chronic) Polypharmacy (Chronic) DNR (do not resuscitate) Dependent edema Uncontrolled type 2 diabetes mellitus with hyperglycemia ([facility]) Morbidly obese ([facility]) Vitamin D deficiency Moderate episode of recurrent major depressive disorder ([facility]) OAB (overactive bladder) Localized edema Insomnia Dyspnea on exertion Muscle spasms of both lower extremities Chronic renal insufficiency, stage III (moderate) ([facility]) Restless legs syndrome (RLS) Hyperlipidemia [...] assistance Toileting Minimal assistance Feeding Minimal assistance Forming Machine Adjuster Minimal assistance Med Delivery yes Wound Care Documentation and Therapy: Wound/Incision 02/15/23 Pressure Injury Buttock Right;Midline (Active) Site Assessment Blanchable erythema;Clean;Dry;Rendon;Red 03/02/23 1100 Wound Length (cm) 1 cm [...] data in the 24 hours ending 03/03/23 07 No intake/output data recorded. Safety Concerns: none [...] Score: @READMISSIONRISKDETAILS@ Discharging to Facility/ Agency Name: [place] [id number] Open 24 hours Dialysis Facility (if applicable) Name: Address: Dialysis Schedule: Phone: Fax: Motor And Generator Brush Cutter/Window Display Designer signature: ICIAN SECTION Prognosis: good Condition at Discharge: stable Rehab Potential (if transferring to Rehab): excellent Recommended Labs or Other Treatments After Discharge: BMP/CBC in one week. MBS ac and hs Physician Certification: I certify the above information and transfer of Radha Sandoval is necessary for the continuing treatment of the diagnosis listed and that she requires halfway facility for less than 30 days. Update Admission H&P: No change in H&P PHYSICIAN SIGNATURE: documented in this [facility]09-13-2023 Consult note* Adam Holt MD - 03/01/2023 11:26 AM EDTAssociated Order(s): IP CONSULT TO GERIATRICS Images from the original note were not included. [facility] Geriatric Medicine Inpatient Consult Service Admission Date: 02/28/2023 Admission Status: INPATIENT Chief Complaint: "I couldn't get around and they directed me to the hospital because I was peeing constantly from that UTI." Reason for Appointment Geriatrics consulted for "functional decline" Assessment/Plan Principal Problem: LING (acute kidney injury) (CMS/HCC) ([facility]) Active Problems: Declining functional status [...] necessary I recommended follow up at our [facility] at [phone]. Call in 2 weeks for memory (re)testing once acute issue(s) resolve - order placed in [facility] for follow-up Other I deferred full [...] accidents, getting lost. Knows she's here at [facility] due to UTI. States she [...] Healthcare Power ofAttorney: No Financial Power of Equipment Operat0R: No Living Will:No Code Status: DNRCCA - [...] mg, Oral, q6h PRN, 650 mg at 03/01/23634 OR acetaminophen (Tylenol) suppository 650 mg, 650 [...] SubCUTAneous, TID WC, 2 Units at 03/01/23 0938 AND Insulin Lispro (Humalog) injection 0-12 Units, [...] 12/07/2022 Performed by Avery Marshall DO at [facility] ENDOSCOPY EYE SURGERY Bilateral early LUNG REMOVAL, [...] Blood Pressure Father LATHA COLEY Asthma Father ALTHA COLEY Hypertension Father LATHA COLEY Diabetes Brother [...] Limits Permission given to speak with patient territory service representative/caregiver as indicated: Yes Confirmation of Payer with patient/family: Yes Payer Name: [employer] [place]: No Confirmation of Primary Care Physician: Confirmed [...] Prescription Coverage: Yes Pharmacy Used: [facility] Medication Management: Independent Transportation/Shopping: Independent Transportation Mode: [...] recommendations communicated to primary service I used Shoto messaging to message Dr. Finch on 03/01/23 at 12:35 to notify that geriatrics consult note has been completed and to page or call my personal cell with any questions. [facility] [id number] Note* Care Coordination - Laura Jackson RN - 03/01/2023 10:14 AM EDT Care Managment Initial Assessment Date: 03/01/2023 Patient Name: Radha Sandoval : 1945 Patient Information Source of Information: Patient Cognition/Language: WFL - Within Functional Limits Permission given to speak with patient territory service representative/caregiver as indicated: Yes Confirmation of [...] Prescription Coverage: Yes Pharmacy Used: [facility] Medication Management: Independent Transportation/Shopping: Independent Transportation Mode: [...] in SNF but would be able to [facility]. [place] liaison following, TCC to assist and follow as needed. Laura Jackson RN [facility] [id number] Consult note* Michelle Valle RN - 03/01/2023 9:33 AM EDT Associated Order(s): IP CONSULT TO CUSTOMER SERVICER This patient is not a new diabetic [...] associated supplies are needed. Thank you. Elder MUÑOZ,BSN,[facility] [id number] Consult note* Jelly Paz, [facility] - 03/01/2023 8:03 AM EDTAssociated Order(s): IP CONSULT TO ENDOCRINOLOGY Department of Internal Medicine Division of Endocrinology, Diabetes, & Metabolism Endocrinology Note Patient Name: Radha Sandoval : 1945 AGE: 77 y.o. Room/Bed: [facility]/[address] Admission Date: 02/28/2023 Visit Date: 03/01/2023 Reason for Endocrine Consult: DM-Uncontrolled Provider/Team Requesting Consult: Dr. Finch PCP: Shiv Lopez MD Outpt Hack Driver: No ASSESSMENT: Type II diabetes with hyperglycemia, with snf insulin use Postoperative hypothyroidism PLAN: Humalog 6 [...] diagnosis. She has been having diarrhea in 8427-3125, smt severe Glimepiride- started in 2015 Trulicity [...] CHOLHDLRATIO 4 02/16/2021 No results found for: [id number] Lab Results Component Value Date TSH 0.03 (L) 02/27/2023 Radiology reportsas per the Radiologist Radiology: CT abdomen pelvis wo IV contrast Result Date: 02/28/2023 Patient Name: RADHA SANDOVAL : 1945 [facility]#: [id number] ExamDate/Time: 02/28/2023 13:07 Procedure: CT ABDOMEN PELVIS [...] 12/07/2022 Performed by Avery Marshall DO at [facility] ENDOSCOPY EYE SURGERY Bilateral early 90's LUNG [...] state/prognosis on the date of this note. [facility] CenterNficgg22-84-9328 NoteProblem: Pain - Adult Goal: Verbalizes/displays adequate comfort level or baseline comfort level Outcome: Progressing Problem: Safety - Adult Goal: Free from fall injury [facility] Plan of care note* Care Plan - Anaya Carr RN - 02/28/2023 6:10 PM EDT Problem: Pain - Adult Goal: Verbalizes/displays adequate comfort level or baseline comfort level Outcome: Progressing Problem: Safety - Adult Goal: Free from fall injury Outcome: Progressing [facility] CenterFwbwuj46-90-2424 History and physical note* Gabrielle Finch MD [...] 12/07/2022 Performed by Avery Marshall DO at [facility] ENDOSCOPY EYE SURGERY Bilateral early 90's LUNG [...] None Comment: W/ UNTIL HIS ADMITTANCE TO RESIDENTIAL Other Topics Concern Not on file Social [...] tablet 0 ergocalciferol (Vitamin D-2) 1.25 MG (64661 UT) capsule Take 1 capsule (1.25 mg) [...] Information Primary Emergency Contact: Angel Roger Address: [address] [place] Relation: Child Code status: Prior [...] to the patient's PCP. Thank you. T [facility] CenterQaolpg15-34-5525 NoteAttending History and Physical Admit Date: 02/28/2023 [...] 12/07/2022 Performed by Avery Marshall DO at [facility] ENDOSCOPY EYE SURGERY Bilateral early 90's LUNG [...] None Comment: W/ UNTIL HIS ADMITTANCE TO RESIDENTIAL Other Topics Concern Not on file Social [...] tablet 0 ergocalciferol (Vitamin D-2) 1.25 MG (16802 UT) capsule Take 1 capsule (1.25 mg) [...] (150 mcg) by m (more content not included)...[facility] [id number] History and physical note* Gabrielle Finch MD [...] 12/07/2022 Performed by Avery Marshall DO at [facility] ENDOSCOPY EYE SURGERY Bilateral early 90's LUNG [...] None Comment: W/ UNTIL HIS ADMITTANCE TO RESIDENTIAL Other Topics Concern Not on file Social [...] tablet 0 ergocalciferol (Vitamin D-2) 1.25 MG (10136 UT) capsule Take 1 capsule (1.25 mg) [...] Information Primary Emergency Contact: Angel Roger Address: [address] Mobile Relation: Child Code status: Prior [...] patient's PCP. Thank you. documented in this [facility]09-12-2023 Emergency department Note* Tasneem Whaley MD - 02/28/2023 11:28 AM EDT SB 1E MED SURG EMERGENCY DEPARTMENT ENCOUNTER Pt [...] 12/07/2022 Performed by Avery Marshall DO at [facility] ENDOSCOPY EYE SURGERY Bilateral early 90's LUNG [...] shoulder pain ergocalciferol (Vitamin D-2) 1.25 MG (47730 UT) capsule Take 1 capsule (1.25 mg) [...] None Comment: W/ UNTIL HIS ADMITTANCE TO RESIDENTIAL Social Determinants of Health Financial Resource Strain: [...] min Stress: No Stress Concern Present (02/28/2023) [employer] [place] [employer] - Occupational Stress Questionnaire [...] injection 0-12 Units ( SubCUTAneous Not Given 03/01/23 1700) acetaminophen (Tylenol) tablet 650 mg (650 mg Oral Given 03/01/23 0635) Or acetaminophen (Tylenol) suppository 650 mg ( Rectal See Alternative 03/01/23 0635) ondansetron ODT (Zofran-ODT) disintegrating tablet 4 mg [...] syringe 40 mg (40 mg SubCUTAneous Given 03/01/23 0938) PARoxetine (Paxil) tablet 20 mg (has no administration in time range) busPIRone (Buspar) tablet 5 mg (has no administration in time range) cholecalciferol (Vitamin D3) tablet 1,000 Units (has no administration in time range) melatonin tablet 3 mg (3 mg Oral Given 03/01/232109) melatonin tablet 3 mg (has no administration in time range) insulin glargine (Lantus) injection 19 Units (19 Units SubCUTAneous Given 03/01/23 1848) Insulin Lispro (Humalog) injection 6 Units (6 [...] Problems Addressed: LING (acute kidney injury) (CMS/HCC) (FORM[facility]LY [facility]): complicated acute illness or injury [...] Tasneem Whaley MD Diagnoses as of 03/02/23 002 Pyelonephritis LING (acute kidney injury) (CMS/HCC) ([facility]) CONSULTS: IP CONSULT TO ENDOCRINOLOGY IP CONSULT TO GERIATRICS IP CONSULT TO CUSTOMER SERVICER PHARMACY TO CONSULT INSOMNIA PROCEDURES: Unless otherwise noted below, none Procedures FINAL IMPRESSION 1. LING (acute kidney injury) (CMS/HCC) ([facility]) 2. Pyelonephritis 3. Polypharmacy 4. Insomnia, unspecified type 5. Pressure ulcer of right buttock, stage 3 ([facility]) DISPOSITION/PLAN DISPOSITION Admit 02/28/2023 03:42:32 PM PATIENT REFERRED TO: [facility] Geriatrics [address] [facility] [address] DISCHARGE MEDICATIONS: Current Discharge Medication List @[facility]([id number]:LAST:1)@ (Please note: Portions of this note were [...] urination. Was recently admitted. documented in this encounterSToledo HospitalDsarva23-34-3652 Emergency department Triage note* Farrah Londono RN - 02/28/2023 11:28 AM EDT Pt presents for admission per her PCP. Was sent to get kidneys evaluated per pt. Pt endorses lower back pain and burning and pain with urination. Was recently admitted. [facility] CenterOgzupz18-38-9305 Physician Emergency department Note* Tasneem Whaley MD - 02/28/2023 11:[address] [facility] 1E MED SURG EMERGENCY DEPARTMENT ENCOUNTER Pt [...] 12/07/2022 Performed by Avery Marshall DO at [facility] ENDOSCOPY EYE SURGERY Bilateral early 90' LUNG [...] shoulder pain ergocalciferol (Vitamin D-2) 1.25 MG (87722 UT) capsule Take 1 capsule (1.25 mg) [...] None Comment: W/ UNTIL HIS ADMITTANCE TO RESIDENTIAL Social Determinants of Health Financial Resource Strain: [...] min Stress: No Stress Concern Present (02/28/2023) [employer] [place] [employer] - Occupational Stress Questionnaire [...] 4, 8 or more for level 5) @EDTRIAGINAVSS@ Physical Exam Vitals and nursing note reviewed. [...] DIAGNOSIS/MDM: Vitals: Vitals: 03/01/23 0834 03/01/23 0834 03/01/2383703/01/232030 BP: 138/57 (!) 159/54 BP Location: Right [...] injection 0-12 Units ( SubCUTAneous Not Given 03/01/23 1700) acetaminophen (Tylenol) tablet 650 mg (650 mg Oral Given 03/01/23 0635) Or acetaminophen (Tylenol) suppository 650 mg ( Rectal See Alternative 03/01/23 0635) ondansetron ODT (Zofran-ODT) disintegrating tablet 4 mg [...] syringe 40 mg (40 mg SubCUTAneous Given 03/01/23 0938) PARoxetine (Paxil) tablet 20 mg (has no administration in time range) busPIRone (Buspar) tablet 5 mg (has no administration in time range) cholecalciferol (Vitamin D3) tablet 1,000 Units (has no administration in time range) melatonin tablet 3 mg (3 mg Oral Given 03/01/232109) melatonin tablet 3 mg (has no administration in time range) insulin glargine (Lantus) injection 19 Units (19 Units SubCUTAneous Given 03/01/23 1848) Insulin Lispro (Humalog) injection 6 Units (6 [...] Problems Addressed: LING (acute kidney injury) (CMS/HCC) ([facility]): complicated acute illness or injury [...] 03/02/23 0025 Pyelonephritis LING (acute kidney injury) (CMS/[facility]) ([facility]) CONSULTS: IP CONSULT TO ENDOCRINOLOGY IP CONSULT TO GERIATRICS IP CONSULT TO CUST[facility]ER [facility]ER PHARMACY TO CONSULT INSOMNIA PROCEDURES: Unless otherwise noted below, none Procedures FINAL IMPRESSION 1. LING (acute kidney injury) (CMS/HCC) ([facility]) 2. Pyelonephritis 3. Polypharmacy 4. Insomnia, unspecified type 5. Pressure ulcer of right buttock, stage 3 ([facility]) DISPOSITION/PLAN DISPOSITION Admit 02/28/2023 03:42:32 PM PATIENT REFERRED TO: [facility] Geriatrics [address] [facility] [address] DISCHARGE MEDICATIONS: Current Discharge Medication List @[facility]([id number]:LAST:1)@ (Please note: Portions of this note were completed with a voice recognition program. Efforts were made to edit the dictations but occasionally words and phrases are mis-transcribed.) Form [id number] Tasneem Whaley MD (electronically signed) Emergency Medicine Provider Tasneem Whaley MD 03/02/23 0025 [facility] CenterHxduje42-38-0252 Telephone encounter Note* Telephone Encounter - ELSA Arriaza CNP - 02/28/2023 8:30 AM EDT Noted. Patient already notified. See previous TE if needed. [facility] CenterJucxyg59-09-3502 Miscellaneous Notes* Telephone Encounter - ELSA Arriaza CNP - 02/28/2023 8:30 AM EDT Noted. Patient already notified. See previous TE if needed. * Telephone Encounter - Imelda Mann RN - 02/28/2023 7:15 AM EDT S: Christine from [employer] [phone] spoke with PSYCHIATRIC nurse regarding critical lab results B: Glucose [...] results Protocols used: PCP Call - No [id number] documented in this encounterSToledo HospitalKqdpft33-16-6244 Telephone encounter Note* Telephone Encounter - Imelda Mann RN - 02/28/2023 7:15 AM EDT S: Christine from [employer] lab [phone] spoke with PSYCHIATRIC nurse regarding critical lab results B: Glucose [...] results Protocols used: PCP Call - No Gupkbz-[id number]-LQ [facility] CenterKuyzdu90-24-1716 Evaluation + Plan note* Assessment & Plan Note - ELSA Arriaza CNP - 02/27/2023 5:18 PM EDTAssociated Problem(s): Diarrhea No fever or chills, abdomen soft. Unknown etiology. Will check CBC and CMP. Consider stool culture if symptoms continue [facility] CenterSoxbzp37-48-2577 Miscellaneous Notes* Assessment & Plan Note - [...] infection we will treat documented in this [facility]09-11-2023 Evaluation + Plan note* Assessment & Plan Note - ELSA Arriaza CNP - 02/27/2023 5:17 PM EDTAssociated Problem(s): Chronic renal insufficiency, stage III (moderate) (HCC) We will check CMP today [facility] CenterBditpo81-86-0217 Evaluation + Plan note* Assessment & Plan Note - ELSA Arriaza CNP - 02/27/2023 5:17 PM EDTAssociated Problem(s): Acute cystitis with hematuria UA positive nitrites and leuks moderate blood, will start antibiotic therapy sent for culture [facility] CenterGjceba71-97-5620 Evaluation + Plan note* Assessment & Plan Note - ELSA Arriaza CNP - 02/27/2023 5:17 PM EDTAssociated Problem(s): Hypertension Controlled. Continue amlodipine 10 mg daily and lisinopril 40 mg daily [facility] CenterNduuos12-19-7344 Evaluation + Plan note* Assessment & Plan Note - ELSA Arriaza CNP - 02/27/2023 5:16 PM EDTAssociated Problem(s): Hypothyroidism Will check TSH today due to recent fatigue [facility] CenterQdxgbb76-22-2565 Evaluation + Plan note* Assessment & Plan Note - ELSA Arriaza CNP - 02/27/2023 5:15 PM EDTAssociated Problem(s): Wound of right buttock Patient has not followed up with wound center upon visualization today wound unchanged, advised to keep area as clean as possible with frequent changes of incontinence pads [facility] CenterKmuegi99-90-1170 Evaluation + Plan note* Assessment & Plan Note - ELSA Arriaza CNP - 02/27/2023 5:14 PM EDTAssociated Problem(s): 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 Patient having difficulties with compliance. Continue insulin regimen. Possible increased glucose due to urinary tract infection we will treat [facility] CenterAlsaho68-66-0288 History of Present illness Narrative* Magda Lomas [...] for as directed pending test results. SUBJECTIVE/OBJECTIVE: LEONILA - Radha Sandoval (: 1945) is a [...] her blood sugar today, noted In office jmvdl-tt-[id number] testing 494. Urination Increased frequency, dysuria intermittently. [...] out soon. Has Maximino (son) work in [employer] He may be able to help her [...] Lopez MD ergocalciferol (Vitamin D-2) 1.25 MG (49352 UT) capsule Take 1 capsule (1.25 mg) [...] by mouth every morning. 12/08/22 Yes Katia Rosaline FLIGHT ENGINEER HELICOPTER - SOLAR SITE ASSESSMENT SPECIALIST potassium chloride CR (K-Tab) 20 MEQ ER tablet Take 20 mEq by mouth daily. Do not crush, chew, or split. Yes Historical Provider, pramipexole (Mirapex) 0.125 MG tablet Take 2 tablets (0.25 mg) by mouth Nightly. 01/13/23 03/14/23 Yes Katia Bridenthal, FLIGHT ENGINEER HELICOPTER - SOLAR SITE ASSESSMENT SPECIALIST rosuvastatin (Crestor) 10 MG tablet Take 1 tablet (10 mg) by mouth daily. 12/08/22 Yes Katia Bridenthal, FLIGHT ENGINEER HELICOPTER - SOLAR SITE ASSESSMENT SPECIALIST hydrOXYzine HCl (Atarax) 25 MG tablet Take 1 tablet (25 mg) by mouth every 8 hours as needed for anxiety. 12/08/22 02/07/23 Katia Bridenthal, FLIGHT ENGINEER HELICOPTER - SOLAR SITE ASSESSMENT SPECIALIST zolpidem (Ambien) 10 MG tablet Take 1 tablet (10 mg) by mouth Nightly as needed for sleep. Do not start before December 22, 2022. 12/22/22 02/07/23 Katia Gregenthal, FLIGHT ENGINEER HELICOPTER - SOLAR SITE ASSESSMENT SPECIALIST insulin aspart (NovoLOG FLEXPEN) 100 UNIT/ML pen [...] CNP 02/27/2023 5:19 PM documented in this [facility]09-11-2023 Evaluation note* Diagnosis Diabetes mellitus due to [...] Diarrhea, unspecified type documented in this encounter [facility] CenterKsvasv65-64-5928 Telephone encounter Note* Telephone Encounter - Nan Bush RN - 02/23/2023 12:49 PM EDT S: Patient spoke with PSYCHIATRIC nurse regarding High Blood Sugar number possible [...] seen Protocols used: Diabetes - High Blood Nqwqf-ELINR-XA Berry WhiteNllsxr14-52-8943 Miscellaneous Notes* Telephone Encounter - Nan Bush RN - 02/23/2023 12:49 PM EDT S: Patient spoke with PSYCHIATRIC nurse regarding High Blood Sugar number possible [...] seen Protocols used: Diabetes - High Blood Ttuqv-GKVMN-PB documented in this [facility]08-30-2023 Hospital Discharge instructions* Patient Instructions* Tejal Henry RN - 02/15/2023 12:45 PM EDT Return in [address] Magallanes If you have any questions or concerns, please call our wound center at [phone] or [phone]. Offloading Try to avoid pressure and sheering [...] to help improve healing. documented in this [facility]08-30-2023 [facility] Care Visit - New Patient Progress Note [...] 12/07/2022 Performed by Avery Marshall DO at [facility] ENDOSCOPY EYE SURGERY Bilateral early 90's LUNG [...] Rfl: 0 ergocalciferol (Vitamin D-2) 1.25 MG (75721 UT) capsule, Take 1 capsule (1.25 mg) [...] None Comment: W/ UNTIL HIS ADMITTANCE TO RESIDENTIAL Other Topics Concern Not on file Social [...] Blood Pressure Father LATHA (more content not included)...[facility] [id number] Evaluation + Plan note* Assessment & Plan Note - ELSA Arriaza CNP - 02/07/2023 12:51 PM EDTAssociated Problem(s): Chronic left shoulder pain Chronic. Refill mobic. [facility] CenterUefqov74-37-4089 Evaluation + Plan note* Assessment & Plan Note - ELSA Arriaza CNP - 02/07/2023 12:51 PM EDTAssociated Problem(s): Wound of right buttock Avoid pressure to area, avoid friction, keep area as dry as possible. Refer to wound clinic. [facility] CenterVxhito64-49-0060 Miscellaneous Notes* Assessment & Plan Note - ELSA Arriaza CNP - 02/07/2023 12:51 PM EDTAssociated Problem(s): Chronic left shoulder pain Chronic. Refill mobic. * Assessment & Plan Note - ELSA Arriaza CNP - 02/07/2023 12:51 PM EDTAssociated Problem(s): Wound of right buttock Avoid pressure to area, avoid friction, keep area as dry as possible. Refer to wound clinic. documented in this [facility]08-22-2023 History of Present illness Narrative* ELSA [...] Arriaza CNP ergocalciferol (Vitamin D-2) 1.25 MG (16407 UT) capsule Take 1 capsule (1.25 mg) [...] (150 mcg) by mouth daily. 01/13/23 04/13/23 Katia Rosaline, FLIGHT ENGINEER HELICOPTER - SOLAR SITE ASSESSMENT SPECIALIST lisinopril 40 MG tablet Take 1 tablet (40 mg) by mouth daily. 12/08/22 Katia Rosaline, FLIGHT ENGINEER HELICOPTER - SOLAR SITE ASSESSMENT SPECIALIST PARoxetine (Paxil) 20 MG tablet Take 1 tablet (20 mg) by mouth every morning. 12/08/22 Katia Rosaline FLIGHT ENGINEER HELICOPTER - SOLAR SITE ASSESSMENT SPECIALIST pramipexole (Mirapex) 0.125 MG tablet Take 2 tablets (0.25 mg) by mouth Nightly. 01/13/23 03/14/23 Katia Rosaline, FLIGHT ENGINEER HELICOPTER - SOLAR SITE ASSESSMENT SPECIALIST rosuvastatin (Crestor) 10 MG tablet Take 1 tablet (10 mg) by mouth daily. 12/08/22 Katia Rosaline, FLIGHT ENGINEER HELICOPTER - SOLAR SITE ASSESSMENT SPECIALIST senna-docusate sodium (Senokot-S) 8.6-50 MG tablet Take 1 tablet by mouth daily. 12/13/22 02/11/23 Katia Rosaline, FLIGHT ENGINEER HELICOPTER - SOLAR SITE ASSESSMENT SPECIALIST zolpidem (Ambien) 10 MG tablet Take 1 tablet (10 mg) by mouth Nightly as needed for sleep. Do not start before December 22, 2022. 12/22/22 01/21/23 Katia Granados APRN - JORGE Review of Systems Constitutional: Negative for activity [...] Date of . [facility] documented in this encounterSToledo HospitalFktcjh88-70-0690 Telephone encounter Note* Telephone Encounter - Betty Gonzalez MA - 01/25/2023 3:01 PM EDT Patient notified. [facility] CenterEwhram06-28-8037 Miscellaneous Notes* Telephone Encounter - Betty Gonzalez [...] EDT S: The patient is calling the PSYCHIATRIC About muscle spasms B: She has been [...] days Protocols used: Muscle Aches and Body Uebf-KFRBT-DZ documented in this encounterSToledo HospitalBdgqcy75-85-8255 Telephone encounter Note* Telephone Encounter - Shiv Lopez MD - 01/25/2023 2:39 PM EDT If the muscle spasms got worse with the muscle relaxer stop the muscle relaxer, I am not sure what else we can do especially if they have been going on for years. We could try quinine. [facility] CenterGqmojd97-34-6815 Telephone encounter Note* Telephone Encounter - Colette Poole RN - 01/25/2023 1:23 PM EDT S: The patient is calling the PSYCHIATRIC About muscle spasms B: She has been [...] days Protocols used: Muscle Aches and Body Llky-JQGPA-MO [facility] CenterXkiebv81-41-0500 Telephone encounter Note* Telephone Encounter - ELSA Arriaza CNP - 01/13/2023 11:12 AM EDT Reviewed chart. Refill appropriate. RX sent. [place] [id number] Miscellaneous Notes* Telephone Encounter - ELSA Arriaza [...] 12/08/22, vit D 07/18/2022 documented in this encounterSToledo HospitalRkahru73-59-2617 Telephone encounter Note* Telephone Encounter - Mya Foster MA - 01/13/2023 8:52 AM EDT Prescription Request: Last medication check: 10/25/2022 Last physical exam: 04/26/2022 Last completed appointment: 12/13/22 Next scheduled appointment: 01/25/2023 Last date of refill on this medication: Mirapex 12/13/22, baclofen and synthroid 12/08/22, vit D 07/18/2022 [facility] CenterEeocjm89-08-6449 Telephone encounter Note* Telephone Encounter - ELSA Arriaza CNP - 12/08/2022 5:20 PM EDT Reviewed chart. Refill appropriate. RX sent. [facility] CenterFixfab64-36-4596 Miscellaneous Notes* Telephone Encounter - ELSA Arriaza [...] 90 day 1 refill documented in this encounterSToledo HospitalFskjtb49-41-8992 Telephone encounter Note* Telephone Encounter - Syl Kumar MA - 12/08/2022 1:53 PM EDT Prescription Request: Last medication check: 10/25/22 Last physical exam: 04/26/22 Next scheduled appointment: 01/25/23 CSA on file (date): 02/02/22 Last urine drug screen: none Last date of refill on this medication Baclofen 10/04/22 30 tablets no refill Levothyroxine 10/04/22 30 day 1 refill Crestor 06/14/22 90 day 1 refill [facility] CenterRpgslr63-71-8433 Plan of care note* Care Plan - [...] integrity is maintained or improved Outcome: Completed [facility] CenterEljvfy37-17-0870 Miscellaneous Notes* Care Plan - Lambert Kaur [...] Please call the Main Endoscopy Dept at [phone] for questions. * Op Note - Avery Marshall DO - 12/07/2022 7:48 AM ED[facility] Name: Radha Sandoval Procedure Date: 12/07/2022 7:48 AM Gender: Female Date of : 1945 Age: 77 Admit Type: Inpatient Note Status: Finalized Endoscopist: Avery Marshall DO, [id number] Procedure: Colonoscopy Indications: Hematochezia Findings: The perianal [...] immediate complications. Procedure Code(s): --- Professional --- 96706, Colonoscopy, flexible; with removal of tumor(s), polyp(s), or other lesion(s) by snare technique --- Technical --- 88072, Colonoscopy, flexible; with removal of tumor(s), polyp(s), [...] or abscess without bleeding CPT copyright 2021 [employer]. All rights reserved. The codes documented in this report are preliminary and upon tour leader review may be revised to meet current [...] Limits Permission given to speak with patient territory service representative/caregiver as indicated: Yes Confirmation of Payer with patient/family: Yes Payer Name: [employer] [place]: No Confirmation of Primary Care Physician: Confirmed [...] Prescription Coverage: Yes Pharmacy Used: [facility] [place] Medication Management: Independent Transportation/Shopping: Independent Transportation Mode: [...] needed. Laura Jackson RN documented in this [facility]06-21-2023 Hospital Discharge instructions* Discharge Instr - Activity* Gabrielle Finch MD - 12/07/2022 1:48 PM EDT As tolerated * Discharge Instr - Diet* Gabrielle Finch MD - 12/07/2022 1:49 PM EDT Carb control diet documented in this [facility]06-21-2023 Hospital course Narrative* Gabrielle Finch MD - 12/07/2022 1:30 PM EDT Seen and examined. Full note to follow documented in this [facility]06-21-2023 Note* Care Coordination - Laura Jackson [...] Stay (Days): 2 GMLOS: No GMLOS Documented [facility] CenterIfwgww15-14-4377 Note* Care Coordination - Laura Jackson RN [...] Stay (Days): 2 GMLOS: No GMLOS Documented [facility] CenterCorfwz08-66-4239 Note* Perioperative Nursing Note - Ashley Dickens RN - 12/07/2022 9:57 AM EDT POST ENDOSCOPY PROCEDURE TRANSFER REPORT Physician: Dr. Marshall Procedure completed: colonoscopy Specimens obtained: Yes Medications administered: See MAR Findings: see MD report Complications: none Please call the Main Endoscopy Dept at [phone] for questions. [facility] CenterYhgzkk35-75-6289 Note* Perioperative Nursing Note - Ashley Dickens RN - 12/07/2022 9:57 AM EDT POST ENDOSCOPY PROCEDURE TRANSFER REPORT Physician: Dr. Marshall Procedure completed: colonoscopy Specimens obtained: Yes Medications administered: See MAR Findings: see MD report Complications: none Please call the Main Endoscopy Dept at [phone] for questions. [facility] CenterAsdpwk23-84-4848 History of Present illness Narrative* Edelmira Hanna - 12/07/2022 7:58 AM EDT Patient has been NPO/ CLRS x3 days without adequate nutrition. Patient referred to RD. * Lani Bolton RCP - 12/06/2022 5:38 PM EDT Formerly [facility] Respiratory Care Department Progress Note As [...] note were not included. Hospitalist Progress Note 12/06/[id number]: Please secure chat me for patient care issues. [phone]: Please secure chat [facility] night Hospitalist for any issues. Subjective: Admit Date: 12/05/2022 PCP: Shiv Lopez MD Room#: B1-148/B1-148 A Interval History: She is weak. Still with bleeding. Not dizzy. She denies chest pain, sob, abdominal pain, nausea, vomiting, diarrhea, constipation, fevers, or chills. Awaiting colonoscopy. D/w pt Adult diet Clear Liquid NPO diet NPO except: Sips of Water with Meds @GKYD2YEKMVH@ 24HR INTAKE/OUTPUT: Intake/Output Summary (Last 24 hours) [...] Information Primary Emergency Contact: Angel Roger Address: [address] Mobile Relation: Child GABRIELLE FINCH MD Division of Hospitalist Medicine [facility] PAGER: Epic chat documented in this [facility]06-21-2023 Note* Op Note - Avery Marshall DO - 12/07/2022 7:48 AM EDT [facility] Name: Radha Sandoval Procedure Date: 12/07/2022 7:48 AM Gender: Female Date of : 1945 Age: 77 Admit Type: Inpatient Note Status: Finalized Endoscopist: Avery Marshall DO, [id number] Procedure: Colonoscopy Indications: Hematochezia Findings: The perianal [...] immediate complications. Procedure Code(s): --- Professional --- 45000, Colonoscopy, flexible; with removal of tumor(s), polyp(s), or other lesion(s) by snare technique --- Technical --- 43734, Colonoscopy, flexible; with removal of tumor(s), polyp(s), [...] or abscess without bleeding CPT copyright 2021 [employer]. All rights reserved. The codes documented in this report are preliminary and upon tour leader review may be revised to meet current compliance requirements. Attending Participation: I personally performed the entire procedure. Avery Marshall DO 12/07/2022 9:46:22 AM This report has been signed electronically. Number of Addenda: 0 Note Initiated On: 12/07/2022 7:48 AM [employer] Phone: 1(874) 194-665506-21-2023 Note* Op Note - Avery Marshall DO - 12/07/2022 7:48 AM EDT [facility] Patient Name: Radha Sandoval Procedure Date: 12/07/2022 7:48 AM Gender: Female Date of : 1945 Age: 77 Admit Type: Inpatient Note Status: Finalized Endoscopist: Avery Marshall DO, [id number] Procedure: Colonoscopy Indications: Hematochezia Findings: The perianal [...] immediate complications. Procedure Code(s): --- Professional --- 38412, Colonoscopy, flexible; with removal of tumor(s), polyp(s), or other lesion(s) by snare technique --- Technical --- 59493, Colonoscopy, flexible; with removal of tumor(s), polyp(s), [...] or abscess without bleeding CPT copyright 2021 [employer]. All rights reserved. The codes documented in this report are preliminary and upon tour leader review may be revised to meet current compliance requirements. Attending Participation: I personally performed the entire procedure. Avery Marshall DO 12/07/2022 9:46:22 AM This report has been signed electronically. Number of Addenda: 0 Note Initiated On: 12/07/2022 7:48 AM [employer] Phone: [phone]) 406-216406-20-2023 Note* Care Coordination - Laura Jackson RN - 12/06/2022 10:36 AM EDT Care Managment Initial Assessment Date: 12/06/2022 Patient Name: Radha Sandoval : 1945 Patient Information Source of Information: Patient Cognition/Language: WFL - Within Functional Limits Permission given to speak with patient territory service representative/caregiver as indicated: Yes Confirmation of Payer with patient/family: Yes Payer Name: [employer] [place]: No Confirmation of Primary Care Physician: Confirmed [...] Prescription Coverage: Yes Pharmacy Used: [facility] [place] Medication Management: Independent Transportation/Shopping: Independent Transportation Mode: [...] and follow as needed. Laura Jackson RN [employer] [id number] Note* Care Coordination - Laura Jackson RN - 12/06/2022 10:36 AM EDT Care Managment Initial Assessment Date: 12/06/2022 Patient Name: Radha Sandoval : 1945 Patient Information Source of Information: Patient Cognition/Language: WFL - Within Functional Limits Permission given to speak with patient territory service representative/caregiver as indicated: Yes Confirmation of Payer with patient/family: Yes Payer Name: Jacob [place]: No Confirmation of Primary Care Physician: Confirmed [...] Prescription Coverage: Yes Pharmacy Used: [facility] [place] Medication Management: Independent Transportation/Shopping: Independent Transportation Mode: [...] follow as needed. Laura Jackson RN T [facility] CenterTegpih96-65-1845 Consult note* Malcolm Rodriguez MD - 12/06/2022 [...] Arriaza CNP ergocalciferol (Vitamin D-2) 1.25 MG (77663 UT) capsule Take 1 capsule (1.25 mg) [...] evening, andat bedtime. 03/10/22 12/06/22 Historical Provider, @MEDED@ ALLERGIES: Allergies Allergen Reactions Codeine Itching Other [...] 12/05/2022 Patient Name: RADHA SANDOVAL : 1945 [facility]#: [id number] ExamDate/Time: 12/05/2022 15:39 Procedure: CT ABDOMEN PELVIS [...] the patient/guardian/responsible accompanying adult who is agreeable. [employer] Phone: 1(791) 135-956406-20-2023 Consult note* Malcolm Rodriguez MD - 12/06/2022 [...] Arriaza CNP ergocalciferol (Vitamin D-2) 1.25 MG (48649 UT) capsule Take 1 capsule (1.25 mg) [...] by mouth in the morning. 12/27/21 Historical Provider,MD pramipexole (Mirapex) 1 MG tablet Take 2 tablets (2 mg) by mouth Nightly. 07/26/22 Shiv Lopez MD rosuvastatin (Crestor) 10 MG tablet Take 1 tablet (10 mg) by mouth daily. 06/14/22 Katia Rosaline, FLIGHT ENGINEER HELICOPTER - SOLAR SITE ASSESSMENT SPECIALIST zolpidem (Ambien) 10 MG tablet Take 1 [...] 12/05/2022 [facility]: [facility] 1945 [id number] ExamDate/Time: 12/05/2022 15:39 Procedure: CT ABDOMEN PELVIS [...] adult who is agreeable. documented in this [facility]06-19-2023 Emergency department Note* Abby Kahn RN - 12/05/2022 8:30 PM EDT Provided pt with stephanie Kahn RN 12/05/222200 [facility] CenterHynfgt17-81-7831 Emergency department Note* Abby Kahn RN - 12/05/2022 8:30 PM EDT Provided pt with stephanie Kahn RN 12/05/222200 * Abby Kahn RN [...] IV that was placed in R AC. REEL REPAIRER called to place a new IV Abby Kahn RN 12/05/22 1403 * ANASTASIA Molina - 12/05/2022 10:[address] [facility] ED eMERGENCY dEPARTMENT eNCOUnter Pt Name: Radha [...] APPENDECTOMY CHOLECYSTECTOMY COLONOSCOPY 06/19/2008 EYE SURGERY early ' LUNG REMOVAL, PARTIAL ROTATOR CUFF REPAIR TONSILLECTOMY CURRENT MEDICATIONS Previous Medications ALBUTEROL 108 (90 BASE) MCG/ACT INHALER Inhale 2 puffs in the morning, at noon, in the evening, andat bedtime. AMLODIPINE (NORVASC) 10 MG TABLET Take 10 mg by mouth daily. BACLOFEN (LIORESAL) 10 MG TABLET Take 1 tablet (10 mg) by mouth daily. ERGOCALCIFEROL (VITAMIN D-2) 1.25 MG (78875 UT) CAPSULE Take 1 capsule (1.25 mg) [...] None Comment: W/ UNTIL HIS ADMITTANCE TO RESIDENTIAL Social Determinants of Health Financial Resource Strain: [...] 215 (*) Narrative: Performed by: Rogelio Montero [facility], [address] [place] [address] CLIA ID: [id number] HEPATIC FUNCTION PANEL - Normal BILIRUBIN, TOTAL [...] MEDICATIONS: New Prescriptions No medications on file @[facility](7217,[id number]:LAST:1)@ (Please note: Portions of this note were completed with a voice recognition program. Efforts were made to edit thedictations but occasionally words and phrases are mis-transcribed.) Form v2016.J.5-cn ANASTASIA MOLINA (electronically signed) Emergency Medicine Provider ANASTASIA Molina 12/05/22 1748 * Anusha Velarde MD - 12/05/2022 10:43 AM EDT Emergency Department Encounter [facility] ED Patient: Radha Sandoval : 1945 Date [...] see their documentation. MD Anusha Huerta MD 12/05/221637 Anusha Velarde MD 12/05/221851 * Maday Borja RN - 12/05/2022 10:43 AM EDT Pt reports bright red blood with blood clots in her brief this AM, denies use of blood thinners or hx of GI bleed. documented in this [facility]06-19-2023 Nurse Note* Sis Archibald RN - 12/05/2022 8:[address] Durbin requesting 18g U/S IV placed d/t GIB. No suitable options for an 18g PIV to be placed at this time. Pt also refusing for Left arm to be used. Dr. Hammer notified. [facility] CenterBzsawx24-07-1164 Nurse Note* Sis Archibald RN - 12/05/2022 8:[address] Durbin requesting 18g U/S IV placed d/t GIB. No suitable options for an 18g PIV to be placed at this time. Pt also refusing for Left arm to be used. Dr. Hammer notified. documented in this [facility]06-19-2023 Emergency department Note* Abby Kahn RN - 12/05/2022 6:[address] Velarde notified pt has filled x 3 bedpan with bloody stools and clots Abby Kahn RN 12/05/22 1812 [facility] CenterTgxvjq95-01-0909 Emergency department Note* Abby Kahn RN - 12/05/2022 5:10 PM EDT Ashley (ANASTASIA) made aware that pt has had 2 large bloody BM's at this point Abby Kahn RN 12/05/22 1733 [facility] CenterKadrof12-72-0871 History and physical note* Bertram Durbin MD [...] None Comment: W/ UNTIL HIS ADMITTANCE TO RESIDENTIAL Other Topics Concern Not on file Social [...] Blood Pressure Father LATHA COLEY Asthma Father LATAH COLEY Hypertension Father LATHA COLEY Diabetes Brother [...] tablet 0 ergocalciferol (Vitamin D-2) 1.25 MG (94012 UT) capsule Take 1 capsule (1.25 mg) [...] Information Primary Emergency Contact: Angel Roger Address: [address] Mobile Relation: Child Code status: No [...] H&P to the patient's PCP. Thank you. [employer] Phone: [phone]) 745-663606-19-2023 History and physical note* Bertram Durbin MD [...] None Comment: W/ UNTIL HIS ADMITTANCE TO RESIDENTIAL Other Topics Concern Not on file Social [...] tablet 0 ergocalciferol (Vitamin D-2) 1.25 MG (88212 UT) capsule Take 1 capsule (1.25 mg) [...] Information Primary Emergency Contact: Angel Roger Address: [address] Mobile Relation: Child Code status: No [...] patient's PCP. Thank you. documented in this [facility]06-19-2023 Emergency department Note* Abby Kahn RN - 12/05/2022 4:58 PM EDT Pt had large bloody BM Abby Kahn RN 12/05/22 1658 [address]Ttfhqx07-69-2192 Emergency department Note* Abby Kahn RN - 12/05/2022 2:[address] stated they were unable to use US IV that was placed in R AC. REEL REPAIRER called to place a new IV Abby Kahn RN 12/05/22 [address] [place] [address]Wvjwsp18-75-4100 Emergency department Triage note* Maday Borja RN - 12/05/2022 10:43 AM EDT Pt reports bright red blood with blood clots in her brief this AM, denies use of blood thinners or hx of GI bleed. [address]Otqalf19-24-2033 Physician Emergency department Note* ANASTASIA Molina - 12/05/2022 10:[address] [facility] ED eMERGENCY dEPARTMENT eNCOUnter Pt Name: Radha [...] mouth daily. ERGOCALCIFEROL (VITAMIN D-2) 1.25 MG (17850 UT) CAPSULE Take 1 capsule (1.25 mg) [...] Mental illness Mother GHANSHYAM COLEY Depression Mother GHANSHYAMRENEE COLEY Heart disease Father [...] None Comment: W/ UNTIL HIS ADMITTANCE TO RESIDENTIAL Social Determinants of Health Financial Resource Strain: [...] 215 (*) Narrative: Performed by: Rogelio Montero [facility], [address] [place] [address] CLIA ID: [id number] HEPATIC FUNCTION PANEL - Normal BILIRUBIN, TOTAL [...] MEDICATIONS: New Prescriptions No medications on file @[facility](6194,[id number]:LAST:1)@ (Please note: Portions of this note were completed with a voice recognition program. Efforts were made to edit thedictations but occasionally words and phrases are mis-transcribed.) Form v2016.J.5-cn ANASTASIA MOLINA (electronically signed) Emergency Medicine Provider ANASTASIA Molina 12/05/22 1748 [facility] CenterRgrfim01-90-8052 Physician Emergency department Note* Anusha Velarde MD - 12/05/2022 10:43 AM EDT Emergency Department Encounter [facility] ED Patient: Radha Sandoval : 1945 Date [...] 1538) ED Course as of 12/05/221851Dec 05, 2022 1816 I assessed the patient after nurse reported [...] MD 12/05/22 1638 Anusha Velarde MD 12/05/221851 [employer] Phone: [phone] Telephone encounter Note* Telephone Encounter - ELSA Arriaza CNP - 12/05/2022 9:44 AM EDT Noted. Agree with disposition. Berry WhiteJqeqmk14-09-7505 Miscellaneous Notes* Telephone Encounter - ELSA Arriaza CNP - 12/05/2022 9:44 AM EDT Noted. Agree with disposition. * Telephone Encounter - Sruthi Burns RN - 12/05/2022 9:22 AM EDT S: Patient spoke with PSYCHIATRIC nurse regarding rectal bleeding. B: Onset of symptoms/concern: started today. A: Pt states she has severe rectal bleeding, started today, bleeding from rectum continuously, states passing clots, states large amount of bleeding. States she has mild dizziness/shakiness at this time. R: Advised to go to the ED now, advised to have someone drive her, states she will go to [place] ED. No further needs at this time. Patient instructed to call back with new or worsening symptoms. Advised to call 911 if she worsens or feels like she might pass out. Patient verbalizes understanding. Reason for Disposition SEVERE rectal bleeding (large blood clots; constant or on and off bleeding) Protocols used: Rectal Whbsppar-GEQYF-OD documented in this encounterSToledo HospitalLackzw15-19-8359 Telephone encounter Note* Telephone Encounter - Sruthi Burns RN - 12/05/2022 9:22 AM EDT S: Patient spoke with PSYCHIATRIC nurse regarding rectal bleeding. B: Onset of symptoms/concern: started today. A: Pt states she has severe rectal bleeding, started today, bleeding from rectum continuously, states passing clots, states large amount of bleeding. States she has mild dizziness/shakiness at this time. R: Advised to go to the ED now, advised to have someone drive her, states she will go to [place] ED. No further needs at this time. Patient instructed to call back with new or worsening symptoms. Advised to call 911 if she worsens or feels like she might pass out. Patient verbalizes understanding. Reason for Disposition SEVERE rectal bleeding (large blood clots; constant or on and off bleeding) Protocols used: Rectal Ghgcqvcc-UGVCE-BK [facility] CenterQxkgag57-98-9981 Telephone encounter Note* Telephone Encounter - Mya Foster MA - 10/05/2022 3:55 PM EDT ----- Message from ELSA Arriaza CNP sent at 10/05/2022 3:52 PM EDT ----- Hemoglobin A1c 9- recommend increasing novolog dose by 2 units- (from 14 to 16), send glucose readings to office in 1 week. Notified, can you please update sig? Thanks! [facility] CenterRndvfm23-00-8995 Miscellaneous Notes* Telephone Encounter - Mya Foster MA - 10/05/2022 3:55 PM EDT ----- Message from Katia Granados APRN - SOLAR SITE ASSESSMENT SPECIALIST sent at 10/05/2022 3:52 PM EDT ----- Hemoglobin A1c 9- recommend increasing novolog dose by 2 units- (from 14 to 16), send glucose readings to office in 1 week. Notified, can you please update sig? Thanks! documented in this [facility]02-24-2023 Telephone encounter Note* Telephone Encounter - [...] prior to picking up the medication: Yes Summa Uisliz85-55-3946 Miscellaneous Notes* Telephone Encounter - Stefani ClarkClaudine Abraham - [...] up the medication: Yes documented in this encounterSToledo HospitalRpvlju28-46-5421 Telephone encounter Note* Telephone Encounter - Shiv Lopez MD - 07/26/2022 8:29 AM EST Rx sent [facility] CenterPpaicc13-44-0195 Miscellaneous Notes* Telephone Encounter - Shiv Lopez [...] (see medication tab): 05/03/2022 documented in this [facility]02-07-2023 Note* Addendum Note - Mya Foster MA - 07/26/2022 7:57 AM ESTAddended by: MYA FOSTER on: 07/26/2022 07:57 AM Modules accepted: Orders [facility] CenterZmtcgn33-80-3635 Note* Addendum Note - Mya Foster MA - 07/26/2022 7:57 AM ESTAddended by: MYA FOTSER on: 07/26/2022 07:57 AM Modules accepted: Orders [place] [address]Wcijge77-66-8346 Telephone encounter Note* Telephone Encounter - September Kushal - 07/26/2022 [...] of last refill (see medication tab): 05/03/2022 [facility] CenterQdboys54-60-1712 Telephone encounter Note* Telephone Encounter - ELSA Arriaza CNP - 07/18/2022 9:56 AM EST Reviewed chart. Refill appropriate. RX sent. [facility] CenterEaajbt31-32-5670 Miscellaneous Notes* Telephone Encounter - ELSA Arriaza CNP - 07/18/2022 9:56 AM EST Reviewed chart. Refill appropriate. RX sent. * Telephone Encounter - Magda Lomas - 07/18/2022 9:39 AM EST Prescription Request: Last medication check: 06/30/22 Last physical exam: 04/26/22 Next scheduled appointment: 09/30/22 Last date of refill on this medication 06/14/22 documented in this [facility]01-30-2023 Telephone encounter Note* Telephone Encounter - Magda Lomas - 07/18/2022 9:39 AM EST Prescription Request: Last medication check: 06/30/22 Last physical exam: 04/26/22 Next scheduled appointment: 09/30/22 Last date of refill on this medication 06/14/22 [facility] CenterIrcyja58-65-4927 Telephone encounter Note* Telephone Encounter - Ashley Haider MA - 07/13/2022 1:06 PM EST Attempted to call patient to help her schedule an appt - the patient has a recording that says she is not accepting calls [facility] CenterRkqazx88-36-0663 Miscellaneous Notes* Telephone Encounter - Ashley Haider [...] her 07/08 appt. Please advise. Office Name: [facility] Physician Orthopedics Medication Refills need, if any: N/A Medication Name: N/A documented in this encounterSToledo HospitalArgidf62-05-0984 Telephone encounter Note* Telephone Encounter - Devendra Loera MD - 07/13/2022 11:10 AM EST Okay to reschedule [facility] Phone: [phone]) 622-218601-23-2023 Telephone encounter Note* Telephone Encounter - ELSA Arriaza CNP - 07/11/2022 2:11 PM EST Reviewed chart. Refill appropriate. RX sent. [facility] CenterOlrxci92-39-6531 Miscellaneous Notes* Telephone Encounter - ELSA Arriaza CNP - 07/11/2022 2:11 PM EST Reviewed chart. Refill appropriate. RX sent. * Telephone Encounter - Mya Foster MA - 07/11/2022 2:02 PM EST Prescription Request: Last medication check: 08/05/21 Last physical exam: 04/26/22 Next scheduled appointment: 09/29/2022 Last date of refill on this medication 02/28/2022 documented in this encounterSToledo HospitalPbjajq17-48-4669 Telephone encounter Note* Telephone Encounter - Mya Foster MA - 07/11/2022 2:02 PM EST Prescription Request: Last medication check: 08/05/21 Last physical exam: 04/26/22 Next scheduled appointment: 09/29/2022 Last date of refill on this medication 02/28/2022 [facility] CenterRfuzaa33-24-5971 Telephone encounter Note* Telephone Encounter - Mya Foster MA - 07/11/2022 9:46 AM EST [address]ified. [address]Euftcv56-06-5882 Miscellaneous Notes* Telephone Encounter - Mya Foster [...] to answer question Protocols used: Falls and Xjiatgp-OHNMF-QZ documented in this encounterSToledo HospitalQxkqzw26-51-9870 Telephone encounter Note* Telephone Encounter - Shiv Lopez MD - 07/08/2022 12:30 PM EST Rx sent for tramadol, she can take this with Tylenol, this is a one-time prescription and cannot berefilled because we are not chronic pain management physicians. [facility] CenterLzlhra73-56-9812 Miscellaneous Notes* Telephone Encounter - Shiv Lopez [...] to answer question Protocols used: Falls and Safgttd-YHRND-JK documented in this [facility]01-20-2023 Telephone encounter Note* Telephone Encounter - [...] to answer question Protocols used: Falls and Jscgzxi-DCIQY-IM [facility] Losiym14-91-6330 Telephone encounter Note* Telephone Encounter - Katie Bernardo - 07/07/2022 5:48 PM EST Name of Caller: Radha Contact Reason for Appointment: Pt states that she would like to r/s her 07/08 appt. Please advise. Office Name: [facility] Physician Orthopedics Medication Refills need, if any: N/A Medication Name: N/A [facility] Adrrzu13-67-2153 Evaluation + Plan note* Assessment & Plan Note - Shiv Lopez MD - 06/30/2022 12:54 PM ESTAssociated Problem(s): Hyperlipidemia with target LDL less than 70 Controlled, continue rosuvastatin 10 mg daily [facility]01-12-2023 Evaluation + Plan note* Assessment & Plan Note - Shiv Lopez MD - 06/30/2022 12:54 PM ESTAssociated Problem(s): Moderate episode of recurrent major depressive disorder (HCC) Stable, continue Paxil 20 mg daily [facility] Xtuoux18-74-6061 Evaluation + Plan note* Assessment & Plan Note - Shiv Lopez MD - 06/30/2022 12:54 PM ESTAssociated Problem(s): Chronic right-sided low back pain with right-sided sciatica Referral to orthopedic surgeon [facility] CenterGthmum26-52-9041 Evaluation + Plan note* Assessment & Plan Note - Shiv Lopez MD - 06/30/2022 12:54 PM ESTAssociated Problem(s): Hypothyroidism Controlled, continue levothyroxine 150 mcg daily [facility] CenterYivvkj26-52-0959 Miscellaneous Notes* Assessment & Plan Note - [...] current dose of Ambien documented in this [facility]01-12-2023 Evaluation + Plan note* Assessment & Plan Note - Shiv Lopez MD - 06/30/2022 12:53 PM EST Associated Problem(s): Vitamin D deficiency Stable, continue vitamin D 50,000 units weekly [facility] CenterQyocfd72-13-5961 Evaluation + Plan note* Assessment & Plan Note - Shiv Lopez MD - 06/30/2022 12:53 PM ESTAssociated Problem(s): Uncontrolled type 2 diabetes mellitus with hyperglycemia (HCC) Uncontrolled, continue NovoLog 14 units before each meal. 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 [facility] CenterIodqba04-64-7073 Evaluation + Plan note* Assessment & Plan Note - Shiv Lopez MD - 06/30/2022 12:52 PM ESTAssociated Problem(s): DDD (degenerative disc disease), lumbar This is a chronic issue we will send her to spine surgery for further evaluation. [address]Rgqzqf67-67-1164 Evaluation + Plan note* Assessment & Plan Note - Shiv Lopez MD - 06/30/2022 12:51 PM ESTAssociated Problem(s): Hypertension Blood pressure was initially elevated, recheck was normal, continue lisinopril 40 mg daily and amlodipine 10 mg daily [address]Xojqub74-39-0175 Evaluation + Plan note* Assessment & Plan Note - Shiv Lopez MD - 06/30/2022 12:51 PM ESTAssociated Problem(s): Restless legs syndrome (RLS) Stable on current dose of Mirapex 2 mg nightly [facility] CenterKfuzlv03-61-3138 Evaluation + Plan note* Assessment & Plan Note - Shiv Lopez MD - 06/30/2022 12:51 PM ESTAssociated Problem(s): Insomnia Stable on current dose of Ambien [facility] CenterUyblqb90-88-2138 History of Present illness Narrative* Syl Kumar MA - 06/30/2022 8:15 AM EST Patient verified by last name and date of . Patient wants a pickle solution maker in the room during during the visit. no In File Operator na * Shiv Lopez MD - 06/30/2022 [...] unspecified whether stage 3a or 3b CKD ([facility]) Assessment & Plan: Uncontrolled, kidney function is stable, continue NovoLog 14 units before each meal. 10. DDD (degenerative disc disease), lumbar Assessment & Plan: This is a chronic issue we will send her to spine surgery for further evaluation. Orders: - [facility] Orthopedics Spine - [place] Cecelia/[place] 11. Chronic right-sided low back pain with right-sided sciatica Assessment & Plan: Referral to orthopedic surgeon Orders: - [facility] [place] Cecelia/Colby Follow up in about 3 months [...] MD 06/30/2022 12:55 PM [facility] Diagnosis Localized edema Edema documented in this encounter [facility] Work Phone: Evaluation note* Diagnosis Dyspnea on exertion Other dyspnea and respiratory abnormality documented in this encounter [facility] Work Phone: Evaluation note* Diagnosis Acute lower GI bleeding- Primary Unspecified, hemorrhage of gastrointestinal tract Acute lower GI bleeding Unspecified, hemorrhage of gastrointestinal tract Rectal bleeding Hemorrhage of rectum and anus Gastrointestinal bleed Unspecified, hemorrhage of gastrointestinal tract documented in [facility]* Diagnosis Hyperlipidemia with target LDL less than 70 Other and unspecified hyperlipidemia Acquired hypothyroidism Unspecified hypothyroidism Chronic left shoulder pain Pain in joint, shoulder region documented in this encounter [facility]* Diagnosis Vitamin D deficiency Acquired hypothyroidism Unspecified hypothyroidism Chronic left shoulder pain Pain in joint, shoulder region Restless legs syndrome (RLS) documented in this encounter [facility]* Diagnosis Wound of right buttock, subsequent encounter- Primary Chronic left shoulder pain Pain in joint, shoulder region documented in this encounter [facility]* Diagnosis LING (acute kidney injury) ([facility]) ([facility])- Primary Pyelonephritis Unspecified pyelonephritis LING (acute kidney injury) ([facility]) ([facility]) Polypharmacy Issue of repeat prescriptions Insomnia, unspecified type Pressure ulcer of right buttock, stage 3 ([facility]) Declining functional status Weakness Other malaise and fatigue Insomnia Insomnia, unspecified Anxiety Anxiety state, unspecified Polypharmacy Issue of repeat prescriptions DNR (do not resuscitate) Other specified conditions influencing health status Complicated UTI (urinary tract infection) documented in this encounter [facility]* Diagnosis Onset Date Resolution Status Acquired lymphedema acute Debility acute Depression acute Diabetes mellitus acute Edema acute Hypothyroidism acute Insomnia acute Pain in left toe(s) acute Pain in right toe(s) acute Restless leg syndrome acute Rheumatoid arthritis acute Tinea unguium acute Type 2 diabetes mellitus with diabetic polyneuropathy acute Urinary tract infection acut e Hypertension chronic [facility] Work Phone: Evaluation note* Diagnosis Onset Date Resolution Status Acquired lymphedema acute Debility acute Depression acute Diabetes mellitus acute Edema acute Hypothyroidism acute Insomnia acute Restless leg syndrome acute Rheumatoid arthritis acute Type 2 diabetes mellitus with diabetic polyneuropathy acute Hypertension chronic Pain in left toe(s) resolved Pain in right toe(s) resolve d Tinea unguium resolved Urinary tract infection reso lved [facility] Work Phone: Evaluation noteNo assessment information available [facility] Work Phone: Evaluation note* Diagnosis Uncontrolled type [...] with right-sided sciatica documented in this encounter [facility]* Diagnosis Trauma- Primary Injury, other and unspecified, unspecified site documented in this encounter [facility]* Diagnosis Trauma- Primary Injury, other and unspecified, unspecified site documented in this encounter [facility]* Diagnosis Vitamin D deficiency [facility] Discharge instructions Additional Instructions Discharge to [facility] 03/18/2023, intermediate, Part B therapies.[facility] Work Phone: Instructions* Attachments The following attachments cannot be sent through Care Everywhere. * Acute Cystitis Discharge Instructions (Ivorian) [facility] (narrative)* Consultation (Urgent) - Pending Review Specialty Diagnoses / Procedures Referred By Varun t Referred To Contact Wound Care Diagnoses Wound of right buttock, subsequent encounter Procedures GA OFFICE/OUTPATIENT [facility] 60-74 MINUTES Katia Granados APRN - CNP [address] [place] [address] [facility] [address] [place] [address] Referral ID Status Reason Start Date Expiration Date Visits Requested Visits Authorized [id number] Pending Review Specialty Services Required 02/07/2023 02/07/2024 1 1 [facility] Consultation (Routine) - Pending Review Specialty Diagnoses / Procedures Referred By Contac t Referred To Contact Orthopedic Surgery: Spine Surgery / Orthopedic Surgery Diagnoses DDD (degenerative disc disease), lumbar Chronic right-sided low back pain with right-sided sciatica Procedures GA OFFICE/OUTPATIENT [facility] MDM 60-74 MINUTES Shiv Lopez MD [address], [place] [address] [facility] [address] [place] [address] Referral ID Status Reason Start Date Expiration Date Visits Requested Visits Authorized [id number] Pending Review Specialty Services Required 06/30/2022 12/27/2022 1 1 [facility] for referral (narrative)No reason for referral [facility] Work Phone: Summary Purpose Family History No Family History Records Found Relationship Condition Age at Onset Recorded Date/T amelia Not Specified Cardiac disease Unknown Malignant neoplasm Unknown Advance Directives No Advanced Directives Records FoundDocuments on File Type Date Recorded Patient Seo Expert Expl anation ACP-Advance Directive ACP-Power of Equipment Operat0R Latest Code Status on File Code Status Date Activated Date Inactivated Comments Full Code 01/20/2019 3:56 AM 01/23/2019 7:06 PM Full Code 01/20/2019 3:56 AM 01/20/2019 3:56 AM Documents on File Type Date Recorded Patient Seo Expert Expl anation Advance Directives and Living Will Power of Equipment Operat0R Documents on File Type Date Recorded Patient Seo Expert Expl anation ACP-Advance Directive ACP-Power of Equipment Operat0R Latest Code Status on File Code Status [...] No March 06, 2023 4:25pm Power of Equipment Operat0R No February 4:25pm Advance Directive Response Recorded Date/ Time Living Will No March 06, 2023 3:25pm Power of Equipment Operat0R No February 3:25pm Documents on File Type Date Recorded Patient Seo Expert Expl anation DNR (Do Not Resuscitate) 03/06/2023 [...] sent through Care Everywhere. * Lacerations: Stitches (Ivorian) * Head Injury: Closed: General Info (Ivorian) * Cervical Strain (Ivorian) documented in this encounter Assessments Diagnosis Injury of head, initial encounter- Primary Laceration of scalp, initial encounter Strain of neck muscle, initial encounter Reason for Referral Status Reason Specialty Diagnoses / Procedures Referre d By Contact Referred To Contact Closed Cardiology Diagnoses Localized edema Procedures ECHO Complete 2D W Doppler W Color Shiv Lopez MD [address] [place] [address], [place] [address] Specialty Diagnoses / Procedures Referred By Varun irizarry Referred To Contact Gabrielle Finch MD [address] [place] [address] Referral ID Status Reason Start Date Expiration Date Visits Re quested Visits Authorized [id number] Closed 1 1 Referral ID Status Reason Start Date Expiration Date Visits Re quested Visits Authorized [id number] Closed 1 1 Referral ID Status Reason Start Date Expiration Date Visits Re quested Visits Authorized [id number] Closed 1 1 Specialty Diagnoses / Procedures Referred By Contac t Referred To Contact Wound Care Diagnoses Pressure ulcer of right buttock, stage 3 (HCC) Procedures GA OFFICE/OUTPATIENT [facility] MDM 60-74 MINUTES Rosalinda Burrows, FLIGHT ENGINEER HELICOPTER - SOLAR SITE ASSESSMENT SPECIALIST [address] [place] [address] Referral ID Status Reason Start Date Expiration Date Visits Requested Visits Authorized [id number] Pending Review Specialty Services Required 03/01/2023 02/29/2024 1 1 Specialty Diagnoses / Procedures Referred By Contac t Referred To Contact Geriatric Medicine Diagnoses Polypharmacy Insomnia, unspecified type Procedures GA OFFICE/OUTPATIENT [facility] MDM 60-74 MINUTES Adam Holt MD [address] [address] [address] [facility] [address] [place] [address] Referral ID Status Reason Start Date Expiration Date Visits Requested Visits Authorized [id number] Pending Review Specialty Services Required 03/01/2023 02/29/2024 1 1 Chief Complaint and Reason for Visit Chief Complaint UTI/PRESSURE WOUND Reason for Visit Acquired lymphedema Debility Depression Diabetes mellitus Edema Hypothyroidism Insomnia Pain in left toe(s) Pain in right toe(s) Restless leg syndrome Rheumatoid arthritis Tinea unguium Type 2 diabetes mellitus with diabetic polyneuropathy Urinary tract infection Hypertension Chief Complaint UTI/PRESSURE WOUND 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 Reason for Visit Acquired lymphedema Debility Depression Diabetes mellitus Edema Hypothyroidism Insomnia Restless leg syndrome Rheumatoid arthritis Type 2 diabetes mellitus with diabetic polyneuropathy Hypertension Pain in left toe(s) Pain in right toe(s) Tinea unguium Urinary tract infection Chief Complaint UTI/PRESSURE WOUND 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 LABWORK Reason for Visit Acquired lymphedema Debility Depression Diabetes mellitus Edema Hypothyroidism Insomnia Restless leg syndrome Rheumatoid arthritis Type 2 diabetes mellitus with diabetic polyneuropathy Hypertension Pain in left toe(s) Pain in right toe(s) Tinea unguium Urinary tract infection Chief Complaint UTI/PRESSURE WOUND 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 LABWORK RESIDENTIAL LAB WORK Reason for Visit Acquired lymphedema Debility Depression Diabetes mellitus Edema Hypothyroidism Insomnia Restless leg syndrome Rheumatoid arthritis Type 2 diabetes mellitus with diabetic polyneuropathy Hypertension Pain in left toe(s) Pain in right toe(s) Tinea unguium Urinary tract infection Chief Complaint UTI/PRESSURE WOUND 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 LABWORK RESIDENTIAL LAB WORK LABWORK Reason for Visit Acquired lymphedema Debility Depression Diabetes mellitus Edema Hypothyroidism Insomnia Restless leg syndrome Rheumatoid arthritis Type 2 diabetes mellitus with diabetic polyneuropathy Hypertension Pain in left toe(s) Pain in right toe(s) Tinea unguium Urinary tract infection Chief Complaint UTI/PRESSURE WOUND 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 LABWORK 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 LAB WORK LABWORK Reason for Visit Acquired lymphedema Debility Depression Diabetes mellitus Edema Hypothyroidism Insomnia Restless leg syndrome Rheumatoid arthritis Type 2 diabetes mellitus with diabetic polyneuropathy Hypertension Pain in left toe(s) Pain in right toe(s) Tinea unguium Urinary tract infection Chief Complaint RESIDENTIAL LABWORK 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 LAB WORK LABWORK 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 LAB WORK LABWORK RESIDENTIAL LAB WORK LABWORK Chief Complaint RESIDENTIAL LAB WOR K RESIDENTIAL LAB WORK LABWORK 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 LAB WORK LABWORK RESIDENTIAL LAB WORK LABWORK LABWORK Chief Complaint RESIDENTIAL LAB WOR K LABWORK 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 LAB WORK LABWORK RESIDENTIAL LAB WORK LABWORK LABWORK LABWORK Chief Complaint RESIDENTIAL LAB WOR K LABWORK 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 LAB WORK LABWORK RESIDENTIAL LAB WORK LABWORK LABWORK LABWORK LABWORK Chief Complaint Admit Date RESIDENTIAL LAB WORK May 29 5:00am RESIDENTIAL LAB WORK June 13 6:35am RESIDENTIAL LAB WORK June 27, 2024 5:00am RESIDENTIAL LAB WORK July 11, 2024 5:00am LABWORK July 25, 2024 5 :00am B/L SHOULDER PAIN/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 o July 31, 2024 4:58pm LABWORK August 06, 2024 4:00pm LABWORK August 08, 2024 8:05am RESIDENTIAL LAB WORK August 22, 2024 7: 10am Chief Complaint Admit Date RESIDENTIAL LAB WORK May 29 5:00am RESIDENTIAL LAB WORK June 13 6:35am RESIDENTIAL LAB WORK June 27, 2024 5:00am RESIDENTIAL LAB WORK July 11, 2024 5:00am LABWORK July 25, 2024 5 :00am B/L SHOULDER PAIN/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 o July 31, 2024 4:58pm LABWORK August 06, 2024 4:00pm LABWORK August 08, 2024 8:05am RESIDENTIAL LAB WORK August 22, 2024 7: 10am RESIDENTIAL LAB WORK September 05, 2024 8 :00am Chief Complaint Admit Date RESIDENTIAL LAB WORK June 13 6:35am RESIDENTIAL LAB WORK June 27, 2024 5:00am RESIDENTIAL LAB WORK July 11, 2024 5:00am LABWORK July 25, 2024 5 :00am B/L SHOULDER PAIN/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 o July 31, 2024 4:58pm LABWORK August 06, 2024 4:00pm LABWORK August 08, 2024 8:05am RESIDENTIAL LAB WORK August 22, 2024 7: 10am RESIDENTIAL LAB WORK September 05, 2024 8 :00am RESIDENTIAL LAB WORK October 03, 2024 4 :00am Chief Complaint Admit Date RESIDENTIAL LAB WORK June 27, 2024 5:00am RESIDENTIAL LAB WORK July 11, 2024 5:00am LABWORK July 25, 2024 5 :00am B/L SHOULDER PAIN/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 o July 31, 2024 4:58pm LABWORK August 06, 2024 4:00pm LABWORK August 08, 2024 8:05am RESIDENTIAL LAB WORK August 22, 2024 7: 10am RESIDENTIAL LAB WORK September 05, 2024 8 :00am LABWORK September 19, 2024 5:00 am RESIDENTIAL LAB WORK September 23, 2024 8: 20am RESIDENTIAL LAB WORK October 03, 2024 4 :00am Chief Complaint Admit Date LABWORK August 06, 2024 4:00pm LABWORK August 08, 2024 8:05am RESIDENTIAL LAB WORK August 22, 2024 7: 10am RESIDENTIAL LAB WORK September 05, 2024 8 :00am LABWORK September 19, 2024 5:00 am RESIDENTIAL LAB WORK September 23, 2024 8: 20am RESIDENTIAL LAB WORK October 03, 2024 4 :00am LABWORK October 17, 2024 5:00am LABOWRK November 08, 2024 5:00a m Chief Complaint Admit Date LABWORK August 06, 2024 4:00pm LABWORK August 08, 2024 8:05am RESIDENTIAL LAB WORK August 22, 2024 7: 10am RESIDENTIAL LAB WORK September 05, 2024 8 :00am LABWORK September 19, 2024 5:00 am RESIDENTIAL LAB WORK September 23, 2024 8: 20am RESIDENTIAL LAB WORK October 03, 2024 4 :00am LABWORK October 17, 2024 5:00am LABOWRK November 08, 2024 5:00a m RESIDENTIAL LAB WORK November 14, 2024 6:5 0am [...] SHS DATE CREATED AUTHOR AUTHOR'S ORGANIZ ATION 01/30/2025 [facility] Reason for Visit (unrecogniz ed section and content) Reason Comments Fall Surgical team Reason Onset Date Comments Results 10/05/2022 Reason Comments Black or Bloody Stool Specialty Diagnoses / Procedures Referred By Contac t Referred To Contact Diagnoses Acute lower GI bleeding Procedures K92.2 Bertram Durbin MD [address] [place] [address] [facility] 1e Med Surg [address] [place] [address] Referral ID Status Reason Start Date Expiration Date Visits Re quested Visits Authorized [id number] 1 1 Reason Onset Date Comments Med [...] Contact Diagnoses LING (acute kidney injury) (CMS/HCC) ([facility]) Procedures .. Gabrielle Finch MD [address] [place] [address] [facility] Emergency Dept [address] [place] [address] Referral ID Status Reason Start Date Expiration Date Visits Re quested Visits Authorized [id number] 1 1 Reason Onset Date Comments ER [...] Attending Provider Active Start: September 19, 2024 Tool Marker Relationship Specialty Start Date End Date Shiv Lopez MD [address] [place] [id number] PCP - General 02/01/19 Tool Marker Relationship Specialty Start Date End Date Shiv Lopez MD [address] [place], [place] [address] [address] PCP - General 02/01/19 Tool Marker Relationship Specialty Start Date End Date Shiv Lopez MD [address] [place], [place] [address], [place] [address] PCP - General 02/01/19 Tool Marker Relationship Specialty Start Date End Date Shiv Lopez MD [address] [facility] [place] [address] PCP - General 02/01/19 Tool Marker Relationship Specialty Start Date End Date Shiv Lopez MD [address] [facility] [place] [address] PCP - General 02/01/19 Tool Marker Relationship Specialty Start Date End Date Shiv Lopez MD [address] [facility] [place] [address] PCP - General 02/01/19 Tool Marker Relationship Specialty Start Date End Date Shiv Lopez MD [address] [facility] [place] [address] PCP - General 02/01/19 Tool Marker Relationship Specialty Start Date End Date Shiv Lopez MD [address] [facility] [place] [address] PCP - General 02/01/19 Tool Marker Relationship Specialty Start Date End Date Shiv Lopez MD [address] [facility] [place] [address] PCP - General 02/01/19 Tool Marker Relationship Specialty Start Date End Date Shiv Lopez MD [address] [facility] [place] [address] PCP - General 02/01/19 Tool Marker Relationship Specialty Start Date [place] [address] PCP - General 02/01/19 Tool Marker Relationship Specialty Start Date [place] [address] PCP - General 02/01/19 Tool Marker Relationship Specialty Start Date [place] [address] PCP - General 02/01/19 Tool Marker Relationship Specialty Start Date [place] [address] PCP - General 02/01/19 Team Status: Active [...] THOMPSON MD Attending Provider, Referring Provider Active Tool Marker Relationship Specialty Start Date End Date Shiv Lopez MD [address] [place] [id number] PCP - General 02/01/19 Tool Marker Relationship Specialty Start Date End Date Shiv Lopez MD [address] [place] [id number] PCP - General 02/01/19 Tool Marker Relationship Specialty Start Date End Date Shiv Lopez MD [address] [place] [id number] PCP - General 02/01/19 Tool Marker Relationship Specialty Start Date End Date Shiv Lopez MD [address] [place] [id number] PCP - General 02/01/19 Team Status: Inactive [...] (unrecognized section and content) Medication Order 12/05/2022 12/06/202212/07/2022 albuterol 108 (90 Base) MCG/ACT inhaler 2 [...] parameters not met - Comment: Held per [facility]) 0859 (Given - Provider: Oneyda [...] 2050 (Given - Provider: Abby Kahn RN) 2018 (Given - Provider: Lillie Menjivar LPN) levothyroxine [...] parameters not met - Comment: Held per [facility]) 0859 (Given - Provider: Oneyda [...] (38 C), Starting on Mon12/05/22 at 1952
Maximum dose of acetaminophen is 4000 mg [...] PRN, nausea, vomiting, Starting on Mon12/05/22 at 3
1st Line. If inadequate response within 60 [...] LPN)2058 (Given - Provider: Lizeth Shelby RN) 807 (Given - Provider: Tristan Champion LPN) baclofen (Lioresal) tablet 10 mg 10 mg, Oral, Daily, First dose on Mon02/28/23 at 1815 211 (Given - Provider: Lizeth Shelby RN) 2058 (Given - Provider: Lizeth Shelby RN) cholecalciferol (Vitamin D3) tablet 1,000 Units (CANCELED) 1,000 Units, Oral, Daily, First dose on Mon03/02/23 at 0900 09 (Given - Provider: Tristan Champion LPN) enoxaparin (Lovenox) syringe 40 mg 40 mg, SubCUTAneous, Every 24 hours scheduled (Daily), First dose on Mon02/28/23 at 1815, Indication of Use: Prophylaxis-DVT/PE, Indications: Prophylaxis of Venous Thromboembolism 0938 (Given - Provider: Alma Turner RN) 908 (Given - Provider: Tristan Champion LPN) 08 (Given - Provider: Tristan Champion LPN) ergocalciferol [...] (after last modification) on Mon03/01/23 at 2100 2109 (Given - Provider: Lizeth Shelby RN) 2203 (Given - Provider: Lizeth Shelby RN) PARoxetine (Paxil) tablet 20 mg 20 mg, Oral, Nightly, First dose (after last modification) on Mon03/02/23 at 2100 2058 (Given - Provider: Lizeth Shelby RN) pramipexole (Mirapex) tablet 0.25 mg 0.25 mg, Oral, Nightly, First dose on Mon02/28/23 at 2100 2111 (Given - Provider: Lizeth Shelby RN) 2100 (Given - Provider: Lizeth Heron, RN) rosuvastatin (Crestor) tablet 10 mg 10 mg, Oral, Daily, First dose on Mon02/28/23 at 1815 2110 (Given - Provider: Lizeth Shelby, RN) 2100 (Given - Provider: Lizeth Shelby [...] BE BASED ON THE PRIMARY CLINICAL RECORDS. [employer] provides no warranty or guarantee of the accuracy or completeness of information in this document.
[2025-02-06 08:44] LABS: Anion Gap 9 (5-15); BUN 24 mg/dL (4-19); BUN/Creat Ratio 22.7 RATIO (10-20); Calcium,Total 8.8 mg/dL (7.6-11.0); Carbon Dioxide 28.5 mmol/L (21.0-32.0); Chloride 102 mmol/L (98-108); Glucose 131 mg/dL (70-99); Magnesium 2.1 mg/dL (1.5-2.2); Potassium 4.1 mmol/L (3.3-5.1)
== END ==
LOC: OLS.SWAL 05:00
PROVIDERS: PCP Internal Medicine; Visit Provider Internal Medicine
DX: I89.0 Lymphedema, not elsewhere classified (principal); R60.9 Edema, unspecified
CPT/HCPCS: 36415; 80048; 83735

== ENCOUNTER → 2025-02-20 | Outpatient (REF) | payer MEDICARE, MEDICAID, SELFPAY ==
[2025-02-20 08:19] LABS: Anion Gap 10 (5-15); BUN 26 mg/dL (4-19); BUN/Creat Ratio 22.1 RATIO (10-20); Calcium,Total 9.0 mg/dL (7.6-11.0); Carbon Dioxide 27.8 mmol/L (21.0-32.0); Chloride 102 mmol/L (98-108); Glucose 128 mg/dL (70-99); Magnesium 2.4 mg/dL (1.5-2.2); Potassium 4.4 mmol/L (3.3-5.1)
== END ==
LOC: OLS.SWAL 05:00
PROVIDERS: PCP Internal Medicine; Visit Provider Internal Medicine
DX: I89.0 Lymphedema, not elsewhere classified (principal); R60.9 Edema, unspecified
CPT/HCPCS: 36415; 80048; 83735

== ENCOUNTER → 2025-03-06 | Outpatient (REF) | payer MEDICARE, MEDICAID, SELFPAY ==
[2025-03-06 08:56] LABS: Anion Gap 11 (5-15); BUN 24 mg/dL (4-19); BUN/Creat Ratio 22.3 RATIO (10-20); Calcium,Total 8.8 mg/dL (7.6-11.0); Carbon Dioxide 26.7 mmol/L (21.0-32.0); Chloride 101 mmol/L (98-108); Glucose 173 mg/dL (70-99); Magnesium 2.3 mg/dL (1.5-2.2); Potassium 4.2 mmol/L (3.3-5.1)
== END ==
LOC: OLS.SWAL 05:00
PROVIDERS: PCP Internal Medicine; Visit Provider Internal Medicine
DX: I89.0 Lymphedema, not elsewhere classified (principal); R60.9 Edema, unspecified
CPT/HCPCS: 36415; 80048; 83735

== ENCOUNTER → 2025-03-10 | Outpatient (REF) | payer MEDICARE, MEDICAID, SELFPAY ==
--- OUTSIDE RECORDS SUMMARY | 2025-03-10 03:44 | XMS RPT_ITS | CCD ---
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 Betancur Attending Provider [phone] Dr. Gypsy Argueta MD Referring Provider Dr. Melissa Reed MD Referring Provider Unavaildiony Lopez MD, Dr. Chaney Primary Care Provider [phone] Brianna TOWNSEND, Dr. Torres Attending Provider Unavaildiony Lopez MD, Dr. Chaney Primary Care Provider [phone] Brianna TOWNSEND, Dr. Torres Attending Provider Unavaildiony Reed MD, Dr. Torres Primary Care Provider Unava renetta Reed MD, Dr. Torres Attending Provider Unavaila ble Gudla Ryley THOMPSONyothi Attending Unavailable Gudla, Melissa Primary Care Unavailable Gudla Ryley THOMPSONyothi Attending Unavailable Gudla, Melissa Primary Care Unavailable John, Shiv Primary Care Unavailable Gudla OLSRyleyMelissa Attending Unavailable John, Shiv Primary Care Unavailable Gudla Ryley THOMPSONyothi Attending Unavailable Gudla, Melissa Primary Care Unavailable Gudla Ryley THOMPSONyothi Attending Unavailable Gudla Ryley THOMPSONyothi Attending Unavailable Gudla, Melissa Primary Care Unavailable John, Shiv Primary Care Unavailable Gudla Ryley THOMPSONyothi Attending Unavailable Gudla Ryley THOMPSONyothi Attending Unavailable Gudla, Melissa Primary Care Unavailable John, Shvi Primary Care Unavailable Gudla Ryley THOMPSONyothi Attending Unavailable Gudla Ryley THOMPSONyothi Attending Unavailable Gudla, Melissa Primary Care Unavailable Basali, Ayman Referring Unavailable Basali, Ayman Attending Unavailable Gudla, Melissa Primary Care [...] Care Unavailable Gudla JAY, Melissa Attending Unavailable John, Shiv Primary Care Unavailable Gudla Ryley THOMPSONyothi Referring Unavailable Gudla Ryley THOMPSONyothi Attending Unavailable Gudla OLS, Melissa Referring Unavailable Gudla JAY Melissa Attending [...] Attending Unavailable Gudla, Melissa Primary Care Unavailable Allergies Allergy Classification Reported Allergen(s) Allergy Type Date of Onset Reaction(s) Facility Opioid Agonists (2 sources) Codeine Drug Allergy 5 Itching [facility] (20 sources) Codeine Drug Allergy 5 Itching [place], [place] (20 sources) Oxycodone-Aspiri n Propensity to adverse reactions to drug 5 [place] (20 sources) oxyCODONE Drug Allergy [address] [facility] (20 sources) Vancomycin Drug Allergy [address] [facility] (20 sources) Other Allergy to substance 3 [facility] (16 sources) Aspirin Drug Allergy 1 Other [facility] (2 sources) Aluminum aspirin Drug Allergy [address] [facility] (1 source) Aspirin Drug Allergy 1 [facility] (1 source) oxyCODONE Drug Allergy 1 [facility] (1 source) Vancomycin Drug Allergy 1 [facility] Medications Current Medications Medication Drug Class(es) [...] oral solution (1 source) alpha-Adrenergic Agonist, Uncompetitive R-qiilne-B-aspartat e Receptor Antagonist, Sigma-1 Agonist Start: 09-10-2018 [...] Active docusate sodium 50 mg / sennosides, retirement 8.6 mg oral tablet (20 sources) Start: [...] every week ergocalciferol (Vitamin D-2) 1.25 MG (13338 UT) capsule Indications: Vitamin D deficiency Take 1 capsule (1.25 mg) by mouth 1 (one) time per week. 90 capsule 1 07/18/2022 Active Start: 06-10-2021 take 1 capsule by mo ut every week vitamin D (ERGOCALCIFEROL) 1.25 MG (69994 UT) CAPS capsule Take 1 capsule by mouth once a week 12 capsule 1 06/10/2021 Active Start: 12-23-2020 Ergocalciferol (Vitamin D2) (Vitamin D2) 1,250 mcg (50,000 unit) capsule Active 1250 ug PO EVERY WEEK December 23, 2020 12:00am Start: 01-16-2020 take 1 capsule by mo uth every week vitamin D (ERGOCALCIFEROL) 1.25 MG (34337 UT) CAPS capsule Take 1 capsule by mouth once a week 12 capsule 1 01/16/2020 Active Start: 10-01-2018 ergocalciferol (DRISDOL) 39089 units capsule 1 capsule every week 8 [...] Drug Class(es) Dates Sig (Normalized) Sig (Original) [id number] 200 actuat albuterol 0.09 mg/actuat metered dose [...] CLEANUP) Start: 06-04-2019 Continuous Blo od Gluc Blow Molder (FREESTYLE EVIN 14 DAY READER) JO LENGTH [...] End: 08-05-2021 Continuous Blood Gluc Sensor (FREESTYLE EVNI 2 SENSOR) MISC Indications: Uncontrolled type 2 [...] 08/05/2021 Discontinued (LIST CLEANUP) polyethylene glycol 3350 22677 mg powder for oral solution (3 sources) [...] in past 24 hours. 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, [address] Calcium [Mass/Vol] 8.8 mg/dL Normal 7.6-11.0 [facility] Comment on above: Order Comment: 157 Performed By: #### L 501.5200, L500.2500 #### [facility] [address] [place], [address] Chloride [Moles/Vol] 101 mmol/L Normal 98-108 [facility] Comment on above: Order Comment: 157 Performed By: #### L 501.5200, L500.2500 #### [facility] [address] [place], [address] CO2 [Moles/Vol] 26.7 mmol/L Normal 21.0-32.0 [facility] Comment on above: Order Comment: 157 Performed By: #### L 501.5200, L500.2500 #### [facility] [address] [place], [address] Creatinine [Mass/Vol] 1.08 mg/dL Normal 0.70-1.20 [facility] Comment on above: Order Comment: 157 Performed By: #### L 501.5200, L500.2500 #### [facility] [address] [place], [address] GAP 11 Normal 5-15 [facility] Comment on above: Order Comment: 157 Performed By: #### L 501.5200, L500.2500 #### [facility] [address] [place], [address] GFR/1.73 sq M.predicted among non-blacks MDRD (S/P/Bld) [Vol rate/Area] 52 mL/min/{1.73_m2} Low >60 [facility] Comment on above: Order Comment: 157 Result Comment: mL/m in/1.73m2 CKD-EPI Creatinine Equation (2020) Performed By: #### L 501.5200, L500.2500 #### [facility] [address] [place], [address] Glucose [Mass/Vol] 173 mg/dL High 70-99 [facility] Comment on above: Order Comment: 157 Performed By: #### L 501.5200, L500.2500 #### [facility] [address] [place], [address] Potassium [Moles/Vol] 4.2 mmol/L Normal 3.3-5.1 [facility] Comment on above: Order Comment: 157 Performed By: #### L 501.5200, L500.2500 #### [facility] [address] [place], [address] Sodium [Moles/Vol] 139 mmol/L Normal 133-145 [facility] Comment on above: Order Comment: 157 Performed By: #### L 501.5200, L500.2500 #### [facility] [address] [place], [address] Urea nitrogen [Mass/Vol] 24 mg/dL High 4-19 [facility] Comment on above: Order Comment: 157 Performed By: #### L 501.5200, L500.2500 #### [facility] [address] [place], [address] Magnesiumon 03-06-2025 Magnesium [Mass/Vol] 2.3 mg/dL High 1.5-2.2 [facility] Comment on above: Order Comment: 157 Performed By: #### L 501.5200, L500.2500 #### [facility] [address] [place], [address] Basic Metabolic Profile (BMP )on 02-20-2025 BUN/CRE 22.1 RATIO High 10-20 [facility] Comment on above: Order Comment: 157 Performed By: #### L 501.5200, L500.2500 #### [facility] [address] [place], [address] Calcium [Mass/Vol] 9.0 mg/dL Normal 7.6-11.0 [facility] Comment on above: Order Comment: 157 Performed By: #### L 501.5200, L500.2500 #### [facility] [address] [place], [address] Chloride [Moles/Vol] 102 mmol/L Normal 98-108 [facility] Comment on above: Order Comment: 157 Performed By: #### L 501.5200, L500.2500 #### [facility] [address] [place], [address] CO2 [Moles/Vol] 27.8 mmol/L Normal 21.0-32.0 [facility] Comment on above: Order Comment: 157 Performed By: #### L 501.5200, L500.2500 #### [facility] [address] [place], [address] Creatinine [Mass/Vol] 1.16 mg/dL Normal 0.70-1.20 [facility] Comment on above: Order Comment: 157 Performed By: #### L 501.5200, L500.2500 #### [facility] [address] [place], [address] GAP 10 Normal 5-15 [facility] Comment on above: Order Comment: 157 Performed By: #### L 501.5200, L500.2500 #### [facility] [address] [place], [address] GFR/1.73 sq M.predicted among non-blacks MDRD (S/P/Bld) [Vol rate/Area] 47 mL/min/{1.73_m2} Low >60 [facility] Comment on above: Order Comment: 157 Result Comment: mL/m in/1.73m2 CKD-EPI Creatinine Equation (2020) Performed By: #### L 501.5200, L500.2500 #### [facility] [address] [place], [address] Glucose [Mass/Vol] 128 mg/dL High 70-99 [facility] Comment on above: Order Comment: 157 Performed By: #### L 501.5200, L500.2500 #### [facility] [address] [place], [address] Potassium [Moles/Vol] 4.4 mmol/L Normal 3.3-5.1 [facility] Comment on above: Order Comment: 157 Performed By: #### L 501.5200, L500.2500 #### [facility] [address] [place], [address] Sodium [Moles/Vol] 140 mmol/L Normal 133-145 [facility] Comment on above: Order Comment: 157 Performed By: #### L 501.5200, L500.2500 #### [facility] [address] [place], [address] Urea nitrogen [Mass/Vol] 26 mg/dL High 4-19 [facility] Comment on above: Order Comment: 157 Performed By: #### L 501.5200, L500.2500 #### [facility] [address] [place], [address] Magnesiumon 02-20-2025 Magnesium [Mass/Vol] 2.4 mg/dL High 1.5-2.2 [facility] Comment on above: Order Comment: 157 Performed By: #### L 501.5200, L500.2500 #### [facility] [address] [place], [address] Basic Metabolic Profile (BMP )on 02-06-2025 BUN/CRE 22.7 RATIO High 10-20 [facility] Comment on above: Order Comment: CLEAN CATCH Performed By: #### M 100.2200, L400.0001 #### [facility] [address] [place], [address] Calcium [Mass/Vol] 8.8 mg/dL Normal 7.6-11.0 [facility] Comment on above: Order Comment: CLEAN CATCH Performed By: #### M 100.2200, L400.0001 #### [facility] [address] [place], [address] Chloride [Moles/Vol] 102 mmol/L Normal 98-108 [facility] Comment on above: Order Comment: CLEAN CATCH Performed By: #### M 100.2200, L400.0001 #### [facility] [address] [place], [address] CO2 [Moles/Vol] 28.5 mmol/L Normal 21.0-32.0 [facility] Comment on above: Order Comment: CLEAN CATCH Performed By: #### M 100.2200, L400.0001 #### [facility] [address] [place], [address] Creatinine [Mass/Vol] 1.04 mg/dL Normal 0.70-1.20 [facility] Comment on above: Order Comment: CLEAN CATCH Performed By: #### M 100.2200, L400.0001 #### [facility] [address] [place], [address] GAP 9 Normal 5-15 [facility] Comment on above: Order Comment: CLEAN CATCH Performed By: #### M 100.2200, L400.0001 #### [facility] [address] [place], [address] GFR/1.73 sq M.predicted among non-blacks MDRD (S/P/Bld) [Vol rate/Area] 54 mL/min/{1.73_m2} Low >60 [facility] Comment on above: Order Comment: CLEAN CATCH Result Comment: mL/m in/1.73m2 CKD-EPI Creatinine Equation (2020) Performed By: #### M 100.0, L400.0001 #### [facility] [address] [place], [address] Glucose [Mass/Vol] 131 mg/dL High 70-99 [facility] Comment on above: Order Comment: CLEAN CATCH Performed By: #### M 100.2200, L400.0001 #### [facility] [address] [place], [address] Potassium [Moles/Vol] 4.1 mmol/L Normal 3.3-5.1 [facility] Comment on above: Order Comment: CLEAN CATCH Performed By: #### M 100.2200, L400.0001 #### [facility] [address] [place], [address] Sodium [Moles/Vol] 140 mmol/L Normal 133-145 [facility] Comment on above: Order Comment: CLEAN CATCH Performed By: #### M 100.2200, L400.0001 #### [facility] [address] [place], [address] Urea nitrogen [Mass/Vol] 24 mg/dL High 4-19 [facility] Comment on above: Order Comment: CLEAN CATCH Performed By: #### M 100.2200, L400.0001 #### [facility] [address] [place], [address] Magnesiumon 02-06-2025 Magnesium [Mass/Vol] 2.1 mg/dL Normal 1.5-2.2 [facility] Comment on above: Order Comment: CLEAN CATCH Performed By: #### M 100.2200, L400.0001 #### [facility] [address] [place], [address] Basic Metabolic Profile (BMP )on 01-23-2025 BUN/CRE 25.3 RATIO High 10-20 [facility] Comment on above: Order Comment: CLEAN CATCH Performed By: #### M 100.2200, L400.0001 #### [facility] [address] [place], [address] Calcium [Mass/Vol] 8.8 mg/dL Normal 7.6-11.0 [facility] Comment on above: Order Comment: CLEAN CATCH Performed By: #### M 100.2200, L400.0001 #### [facility] [address] [place], [address] Chloride [Moles/Vol] 102 mmol/L Normal 98-108 [facility] Comment on above: Order Comment: CLEAN CATCH Performed By: #### M 100.2200, L400.0001 #### [facility] [address] [place], [address] CO2 [Moles/Vol] 26.3 mmol/L Normal 21.0-32.0 [facility] Comment on above: Order Comment: CLEAN CATCH Performed By: #### M 100.2200, L400.0001 #### [facility] [address] [place], [address] Creatinine [Mass/Vol] 1.06 mg/dL Normal 0.70-1.20 [facility] Comment on above: Order Comment: CLEAN CATCH Performed By: #### M 100.2200, L400.0001 #### [facility] [address] [place], [address] GAP 10 Normal 5-15 [facility] Comment on above: Order Comment: CLEAN CATCH Performed By: #### M 100.2200, L400.0001 #### [facility] [address] [place], [address] GFR/1.73 sq M.predicted among non-blacks MDRD (S/P/Bld) [Vol rate/Area] 53 mL/min/{1.73_m2} Low >60 [facility] Comment on above: Order Comment: CLEAN CATCH Result Comment: mL/m in/1.73m2 CKD-EPI Creatinine Equation (2020) Performed By: #### M 100.0, L400.0001 #### [facility] [address] [place], [address] Glucose [Mass/Vol] 139 mg/dL High 70-99 [facility] Comment on above: Order Comment: CLEAN CATCH Performed By: #### M 100.0, L400.0001 #### [facility] [address] [place], [address] Potassium [Moles/Vol] 4.3 mmol/L Normal 3.3-5.1 [facility] Comment on above: Order Comment: CLEAN CATCH Result Comment: Hemo lysis present, Results??could be affected. ?? Performed By: #### M 100.2200, [id number] #### [facility] [address] [place], [address] Sodium [Moles/Vol] 138 mmol/L Normal 133-145 [facility] Comment on above: Order Comment: CLEAN CATCH Performed By: #### M 100.2200, L400.0001 #### [facility] [address] [place], [address] Urea nitrogen [Mass/Vol] 27 mg/dL High 4-19 [facility] Comment on above: Order Comment: CLEAN CATCH Performed By: #### M 100.2200, L400.0001 #### [facility] [address] [place], [address] Magnesiumon 01-23-2025 Magnesium [Mass/Vol] 2.2 mg/dL Normal 1.5-2.2 [facility] Comment on above: Order Comment: CLEAN CATCH Performed By: #### M 100.2200, L400.0001 #### [facility] [address] [place], [address] Basic Metabolic Profile (BMP )on 01-09-2025 BUN/CRE 22.0 RATIO High 10-20 [facility] Comment on above: Performed By: #### M 100.2200, L400.0001 #### [facility] [address] [place], [address] Calcium [Mass/Vol] 9.0 mg/dL Normal 7.6-11.0 [facility] Comment on above: Performed By: #### M 100.2200, L400.0001 #### [facility] [address] [place], [address] Chloride [Moles/Vol] 103 mmol/L Normal 98-108 [facility] Comment on above: Performed By: #### M 100.2200, L400.0001 #### [facility] [address] [place], [address] CO2 [Moles/Vol] 29.7 mmol/L Normal 21.0-32.0 [facility] Comment on above: Performed By: #### M 100.2200, L400.0001 #### [facility] [address] [place], [address] Creatinine [Mass/Vol] 1.08 mg/dL Normal 0.70-1.20 [facility] Comment on above: Performed By: #### M 100.2200, L400.0001 #### [facility] [address] [place], [address] GAP 8 Normal 5-15 [facility] Comment on above: Performed By: #### M 100.2200, L400.0001 #### [facility] [address] [place], [address] GFR/1.73 sq M.predicted among non-blacks MDRD (S/P/Bld) [Vol rate/Area] 52 mL/min/{1.73_m2} Low >60 [facility] Comment on above: Result Comment: mL/m in/1.73m2 CKD-EPI Creatinine Equation (2020) Performed By: #### M 100.2200, L400.0001 #### [facility] [address] [place], [address] Glucose [Mass/Vol] 78 mg/dL Normal 70-99 [facility] Comment on above: Performed By: #### M 100.2200, L400.0001 #### [facility] [address] [place], [address] Potassium [Moles/Vol] 4.5 mmol/L Normal 3.3-5.1 [facility] Comment on above: Result Comment: Hemo lysis present, Results??could be affected. ?? Performed By: #### M 100.2200, L400.0001 #### [facility] [address] [place], [address] Sodium [Moles/Vol] 141 mmol/L Normal 133-145 [facility] Comment on above: Performed By: #### M 100.2200, L400.0001 #### [facility] [address] [place], [address] Urea nitrogen [Mass/Vol] 24 mg/dL High 4- [facility] Comment on above: Performed By: #### M 100.2200, L400.0001 #### [facility] [address] [place], [address] Magnesiumon 01-09-2025 Magnesium [Mass/Vol] 2.1 mg/dL Normal 1.5-2.2 [facility] Comment on above: Performed By: #### M 100.2200, L400.0001 #### [facility] [address] [place], [address] Urine Cultureon 12-27-2024 [facility] Copy of report sent to Infection Control Printer [id number] 12/26/24 0739 FELICITAS. Urine Culture CALLED X2, RESULTS CALLED TO DIVYA AND LEFT VOICEMAIL MESSAGE WITH SCOTTY MUÑOZ 12/26/24 0581 Dora Platt. Escherichia coli [place] Count 50,000-80,000 MARKER ESBL producing OrganismA MARKER [...] S Tobramycin Islt LAVINIA <=1 S Normal [facility] Comment on above: Performed By: #### L 501.5200, L500.2500 #### [facility] [address] [place], [place], [address] Basic Metabolic Profile (BMP )on 12-26-2024 BUN/CRE 24.9 RATIO High 10-20 [facility] Comment on above: Order Comment: 157 Performed By: #### M 100.2200, L400.0001 #### [facility] [address] [place], [address] Calcium [Mass/Vol] 8.7 mg/dL Normal 7.6-11.0 [facility] Comment on above: Order Comment: 157 Performed By: #### M 100.2200, L400.0001 #### [facility] [address] [place], [address] Chloride [Moles/Vol] 103 mmol/L Normal 98-108 [facility] Comment on above: Order Comment: 157 Performed By: #### M 100.2200, L400.0001 #### [facility] [address] [place], [address] CO2 [Moles/Vol] 28.5 mmol/L Normal 21.0-32.0 [facility] Comment on above: Order Comment: 157 Performed By: #### M 100.2200, L400.0001 #### [facility] [address] [place], [address] Creatinine [Mass/Vol] 1.19 mg/dL Normal 0.70-1.20 [facility] Comment on above: Order Comment: 157 Performed By: #### M 100.2200, L400.0001 #### [facility] [address] [place], [address] GAP 9 Normal 5-15 [facility] Comment on above: Order Comment: 157 Performed By: #### M 100.2200, L400.0001 #### [facility] [address] [place], [address] GFR/1.73 sq M.predicted among non-blacks MDRD (S/P/Bld) [Vol rate/Area] 46 mL/min/{1.73_m2} Low >60 [facility] Comment on above: Order Comment: 157 Result Comment: mL/m in/1.73m2 CKD-EPI Creatinine Equation (2020) Performed By: #### M 100.2200, [id number] #### [facility] [address] [place], [address] Glucose [Mass/Vol] 162 mg/dL High 70-99 [facility] Comment on above: Order Comment: 157 Performed By: #### M 100.2200, L400.0001 #### [facility] [address] [place], [address] Potassium [Moles/Vol] 4.5 mmol/L Normal 3.3-5.1 [facility] Comment on above: Order Comment: 157 Performed By: #### M 100.2200, L400.0001 #### [facility] [address] [place], [address] Sodium [Moles/Vol] 141 mmol/L Normal 133-145 [facility] Comment on above: Order Comment: 157 Performed By: #### M 100.2200, L400.0001 #### [facility] [address] [place], [address] Urea nitrogen [Mass/Vol] 30 mg/dL High 4-19 [facility] Comment on above: Order Comment: 157 Performed By: #### M 100.2200, [id number] #### [facility] [address] [place], [address] Magnesiumon 12-26-2024 Magnesium [Mass/Vol] 2.2 mg/dL Normal 1.5-2.2 [facility] Comment on above: Order Comment: 157 Performed By: #### M 100.2200, [id number] #### [facility] [address] [place], [address] Urinalysis, Completeon 12-24 BACTERIA RARE Normal None Seen [facility] Comment on above: Order Comment: 157 Performed By: #### L 501.5200, L500.2500 #### [facility] [address] [place], [address] EPI,SQUAMOUS 0-5 SEEN Normal 5-10 [facility] Comment on above: Order Comment: 157 Performed By: #### L 501.5200, L500.2500 #### [facility] [address] [place], [address] Mucus Ql (Urine sed) 0 SEEN Normal [facility] Comment on above: Order Comment: 157 Performed By: #### L 501.5200, L500.2500 #### [facility] [address] [place], [address] RBC 0 SEEN Normal 0-5 [facility] [place] Comment on above: Order Comment: 157 Performed By: #### L 501.5200, L500.2500 #### [facility] [place] [facility] [address] [place], [address] WBC 0 SEEN Normal 0-5 [facility] [place] Comment on above: Order Comment: 157 Performed By: #### L 501.5200, L500.2500 #### [facility] [place] [facility] [address] [place], [address] Basic Metabolic Profile (BMP )on 12-12-2024 BUN/CRE 28.8 RATIO High 10-20 [facility] [place] Comment on above: Performed By: #### M 100.2200, L400.0001 #### [facility] [place] [facility] [address] [place], [address] Calcium [Mass/Vol] 8.7 mg/dL Normal 7.6-11.0 [facility] Comment on above: Performed By: #### M 100.2200, L400.0001 #### [facility] [place] [facility] [address] [place], [address] Chloride [Moles/Vol] 101 mmol/L Normal 98-108 [facility] Comment on above: Performed By: #### M 100.2200, L400.0001 #### [facility] [place] [facility] [address] [place], [address] CO2 [Moles/Vol] 27.9 mmol/L Normal 21.0-32.0 [facility] [place] Comment on above: Performed By: #### M 100.2200, L400.0001 #### [facility] [place] [facility] [address] [place], [address] Creatinine [Mass/Vol] 0.98 mg/dL Normal 0.70-1.20 [facility] Comment on above: Performed By: #### M 100.2200, L400.0001 #### [facility] [place] [facility] [address] [place], [address] GAP 9 Normal 5-15 [facility] [place] Comment on above: Performed By: #### M 100.2200, L400.0001 #### [facility] [place] [facility] [address] [place], [address] GFR/1.73 sq M.predicted among non-blacks MDRD (S/P/Bld) [Vol rate/Area] 58 mL/min/{1.73_m2} Low >60 [facility] [place] Comment on above: Result Comment: mL/m in/1.73m2 CKD-EPI Creatinine Equation (2020) Performed By: #### M 100.2200, L400.0001 #### [facility] [place] [facility] [address] [place], [address] Glucose [Mass/Vol] 148 mg/dL High 70-99 [facility] Comment on above: Performed By: #### M 100.2200, L400.0001 #### [facility] [place] [facility] [address] [place], [address] Potassium [Moles/Vol] 4.0 mmol/L Normal 3.3-5.1 [facility] Comment on above: Performed By: #### M 100.2200, L400.0001 #### [facility] [place] [facility] [address] [place], [address] Sodium [Moles/Vol] 139 mmol/L Normal 133-145 [facility] Comment on above: Performed By: #### M 100.2200, L400.0001 #### [facility] [place] [facility] [address] [place], [address] Urea nitrogen [Mass/Vol] 28 mg/dL High 4-19 [facility] [place] Comment on above: Performed By: #### M 100.2200, L400.0001 #### [facility] [place] [facility] [address] [place], [address] Magnesiumon 12-12-2024 Magnesium [Mass/Vol] 2.2 mg/dL Normal 1.5-2.2 [facility] Comment on above: Performed By: #### M 100.2200, L400.0001 #### [facility] [place] [facility] [address] [place], [address] Anion gap in Serum or Plasma Ordered By: Melissa Reed on 11-28-2024 Anion gap [Moles/Vol] 11 mmol/L 5-15 [facility] BUN/creatinine ratioOrdered By: Melissa Reed on 11-28-2024 Urea nitrogen/Creatinine [Mass ratio] 28.8 mg/mg High - [facility] [place] Basic Metabolic Profile (BMP )on 11-28-2024 BUN/CRE 28.8 RATIO High - [facility] [place] Comment on above: Order Comment: 157 Performed By: #### L 500.2500, L501.5200 #### [facility] [place] [facility] [address] [place], [address] Calcium [Mass/Vol] 9.5 mg/dL Normal 7.6-11.0 [facility] Comment on above: Order Comment: 157 Performed By: #### L 500.2500, L501.5200 #### [facility] [place] [facility] [address] [place], [address] Chloride [Moles/Vol] 98 mmol/L Normal 98-108 [facility] Comment on above: Order Comment: 157 Performed By: #### L 500.2500, L501.5200 #### [facility] [place] [facility] [address] [place], [address] CO2 [Moles/Vol] 29.5 mmol/L Normal 21.0-32.0 [facility] [place] Comment on above: Order Comment: 157 Performed By: #### L 500.2500, L501.5200 #### [facility] [place] [facility] [address] [place], [address] Creatinine [Mass/Vol] 1.21 mg/dL High 0.70-1.20 [facility] Comment on above: Order Comment: 157 Performed By: #### L 500.2500, L501.5200 #### [facility] [place] [facility] [address] [place], [address] GAP 11 Normal 5-15 [facility] [place] Comment on above: Order Comment: 157 Performed By: #### L 500.2500, L501.5200 #### [facility] [place] [facility] [address] [place], [address] GFR/1.73 sq M.predicted among non-blacks MDRD (S/P/Bld) [Vol rate/Area] 45 mL/min/{1.73_m2} Low >60 [facility] [place] Comment on above: Order Comment: 157 Result Comment: mL/m in/1.73m2 CKD-EPI Creatinine Equation (2020) Performed By: #### L 500.2500, L501.5200 #### [facility] [place] [facility] [address] [place], [address] Glucose [Mass/Vol] 126 mg/dL High 70-99 [facility] Comment on above: Order Comment: 157 Performed By: #### L 500.2500, L501.5200 #### [facility] [place] [facility] [address] [place], [address] Potassium [Moles/Vol] 4.2 mmol/L Normal 3.3-5.1 [facility] Comment on above: Order Comment: 157 Performed By: #### L 500.2500, L501.5200 #### [facility] [place] [facility] [address] [place], [address] Sodium [Moles/Vol] 139 mmol/L Normal 133-145 [facility] Comment on above: Order Comment: 157 Performed By: #### L 500.2500, L501.5200 #### [facility] [place] [facility] [address] [place], [address] Urea nitrogen [Mass/Vol] 35 mg/dL High 4-19 [facility] [place] Comment on above: Order Comment: 157 Performed By: #### L 500.2500, L501.5200 #### [facility] [place] [facility] [address] [place], [address] Carbon dioxide, total [Moles /volume] in Central venous bloodOrdered By: Melissa Reed on 11-28-2024 CO2 [Moles/Vol] 29.5 mmol/L 21.0-32.0 [facility] [place] Chloride assayOrdered By: Sd Reed on 11-28-2024 Chloride [Moles/Vol] 98 mmol/L 98-108 [facility] Glomerular filtration rate ( GFR) estimation/1.73 sq m using serum, plasma, or whole bOrdered By: Melissa Reed on 11-28-2024 GFR/1.73 sq M.predicted among non-blacks MDRD (S/P/Bld) [Vol rate/Area] 45 mL/min/{1.73_m2} Low >60 [facility] [place] Comment on above: mL/min/1.73m2 CKD-EP I Creatinine Equation (2020) Magnesiumon 11-28-2024 Magnesium [Mass/Vol] 2.4 mg/dL High 1.5-2.2 [facility] Comment on above: Order Comment: 157 Performed By: #### L 500.2500, L501.5200 #### [facility] [place] [facility] [address] [place], [address] Magnesium measurement (mass/ volume)Ordered By: Melissa Reed on 11-28-2024 Magnesium (Unsp spec) [Mass/Vol] 2.4 mg/dL High 1.5-2.2 [facility] [place] Potassium measurement (mass/ volume)Ordered By: Melissa Reed on 11-28-2024 Potassium (Unsp spec) [Mass/Vol] 4.2 mmol/L 3.3-5.1 [facility] [place] Serum creatinine measurement (mass/volume)Ordered By: Melissa Reed on 11-28-2024 Creatinine [Mass/Vol] 1.21 mg/dL High 0.70-1.20 [facility] Serum glucose measurement (m ass/volume)Ordered By: Melissa Reed on 11-28-2024 Glucose [Mass/Vol] 126 mg/dL High 70-99 [facility] Serum or plasma calcium danae urement (mass/volume)Ordered By: Melissa Reed on 11-28-2024 Calcium [Mass/Vol] 9.5 mg/dL 7.6-11.0 [facility] Serum or plasma urea nitroge n measurement (mass/volume)Ordered By: Melissa Reed on 11-28-2024 Urea nitrogen [Mass/Vol] 35 mg/dL High 4-19 [facility] [place] Sodium levelOrdered By: Rubin Reed on 11-28-2024 Sodium [Moles/Vol] 139 mmol/L 133-145 [facility] Anion gap in Serum or Plasma Ordered By: Melissa Reed on 11-14-2024 Anion gap [Moles/Vol] 9 mmol/L 5-15 [facility] BUN/creatinine ratioOrdered By: Melissa Reed on 11-14-2024 Urea nitrogen/Creatinine [Mass ratio] 21.3 mg/mg High - [facility] [place] Basic Metabolic Profile (BMP )on 11-14-2024 BUN/CRE 21.3 RATIO High 04-07 [facility] [place] Comment on above: Performed By: #### M 100.2200, L400.0001 #### [facility] [place] [facility] [place] [place], [address] Calcium [Mass/Vol] 8.6 mg/dL Normal 7.6-11.0 [facility] Comment on above: Performed By: #### M 100.2200, L400.0001 #### [facility] [place] [facility] [address] [place], [address] Chloride [Moles/Vol] 101 mmol/L Normal 98-108 [facility] Comment on above: Performed By: #### M 100.2200, L400.0001 #### [facility] [place] [facility] [address] [place], [address] CO2 [Moles/Vol] 29.7 mmol/L Normal 21.0-32.0 [facility] [place] Comment on above: Performed By: #### M 100.2200, L400.0001 #### [facility] [place] [facility] [address] [place], [address] Creatinine [Mass/Vol] 1.04 mg/dL Normal 0.70-1.20 [facility] Comment on above: Performed By: #### M 100.2200, L400.0001 #### [facility] [place] [facility] [address] [place], [address] GAP 9 Normal 5-15 [facility] [place] Comment on above: Performed By: #### M 100.2200, L400.0001 #### [facility] [place] [facility] [address] [place], [address] GFR/1.73 sq M.predicted among non-blacks MDRD (S/P/Bld) [Vol rate/Area] 54 mL/min/{1.73_m2} Low >60 [facility] [place] Comment on above: Result Comment: mL/m in/1.73m2 CKD-EPI Creatinine Equation (2020) Performed By: #### M 100.2200, L400.0001 #### [facility] [place] [facility] [address] [place], [address] Glucose [Mass/Vol] 179 mg/dL High 70-99 [facility] Comment on above: Performed By: #### M 100.2200, L400.0001 #### [facility] [place] [facility] [address] [place], [address] Potassium [Moles/Vol] 4.1 mmol/L Normal 3.3-5.1 [facility] Comment on above: Performed By: #### M 100.2200, L400.0001 #### [facility] [place] [facility] [address] [place], [address] Sodium [Moles/Vol] 140 mmol/L Normal 133-145 [facility] Comment on above: Performed By: #### M 100.2200, L400.0001 #### [facility] [place] [facility] [address] [place], [address] Urea nitrogen [Mass/Vol] 22 mg/dL High 4-19 [facility] [place] Comment on above: Performed By: #### M 100.2200, L400.0001 #### [facility] [place] [facility] [address] [place], [address] Carbon dioxide, total [Moles /volume] in Central venous bloodOrdered By: Melissa Reed on 11-14-2024 CO2 [Moles/Vol] 29.7 mmol/L 21.0-32.0 [facility] [place] Chloride assayOrdered By: Sd Reed on 11-14-2024 Chloride [Moles/Vol] 101 mmol/L 98-108 [facility] Glomerular filtration rate ( GFR) estimation/1.73 sq m using serum, plasma, or whole bOrdered By: Melissa Reed on 11-14-2024 GFR/1.73 sq M.predicted among non-blacks MDRD (S/P/Bld) [Vol rate/Area] 54 mL/min/{1.73_m2} Low >60 [facility] [place] Comment on above: mL/min/1.73m2 CKD-EP I Creatinine Equation (2020) Magnesiumon 11-14-2024 Magnesium [Mass/Vol] 2.1 mg/dL Normal 1.5-2.2 [facility] Comment on above: Performed By: #### M 100.2200, L400.0001 #### [facility] [place] [facility] [place], [address] Magnesium measurement (mass/ volume)Ordered By: Melissa Reed on 11-14-2024 Magnesium (Unsp spec) [Mass/Vol] 2.1 mg/dL 1.5-2.2 [facility] [place] Potassium measurement (mass/ volume)Ordered By: Melissa Reed on 11-14-2024 Potassium (Unsp spec) [Mass/Vol] 4.1 mmol/L 3.3-5.1 [facility] [place] Serum creatinine measurement (mass/volume)Ordered By: Melissa Reed on 11-14-2024 Creatinine [Mass/Vol] 1.04 mg/dL 0.70-1.20 [facility] Serum glucose measurement (m ass/volume)Ordered By: Melissa Reed on 11-14-2024 Glucose [Mass/Vol] 179 mg/dL High 70-99 [facility] Serum or plasma calcium danae urement (mass/volume)Ordered By: Melissa Reed on 11-14-2024 Calcium [Mass/Vol] 8.6 mg/dL 7.6-11.0 [facility] Serum or plasma urea nitroge n measurement (mass/volume)Ordered By: Melissa Reed on 11-14-2024 Urea nitrogen [Mass/Vol] 22 mg/dL High 4-19 [facility] [place] Sodium levelOrdered By: Rubin Reed on 11-14-2024 Sodium [Moles/Vol] 140 mmol/L 133-145 [facility] Anion gap in Serum or Plasma Ordered By: Melissa Reed on 11-08-2024 Anion gap [Moles/Vol] 10 mmol/L 5-15 [facility] BUN/creatinine ratioOrdered By: Melissa Reed on 11-08-2024 Urea nitrogen/Creatinine [Mass ratio] 24.4 mg/mg High 10-20 [facility] [place] Basic Metabolic Profile (BMP )on 11-08-2024 BUN/CRE 24.4 RATIO High 10-20 [facility] [place] Comment on above: Order Comment: 157 Performed By: #### L 500.2500, L501.5200 #### [facility] [place] [facility] [address] [place], [address] Calcium [Mass/Vol] 8.8 mg/dL Normal 7.6-11.0 [facility] Comment on above: Order Comment: 157 Performed By: #### L 500.2500, L501.5200 #### [facility] [place] [facility] [address] [place], [address] Chloride [Moles/Vol] 101 mmol/L Normal 98-108 [facility] Comment on above: Order Comment: 157 Performed By: #### L 500.2500, L501.5200 #### [facility] [place] [facility] [address] [place], [address] CO2 [Moles/Vol] 28.3 mmol/L Normal 21.0-32.0 [facility] [place] Comment on above: Order Comment: 157 Performed By: #### L 500.2500, L501.5200 #### [facility] [place] [facility] [address] [place], [address] Creatinine [Mass/Vol] 1.08 mg/dL Normal 0.70-1.20 [facility] Comment on above: Order Comment: 157 Performed By: #### L 500.2500, L501.5200 #### [facility] [place] [facility] [address] [place], [address] GAP 10 Normal 5-15 [facility] [place] Comment on above: Order Comment: 157 Performed By: #### L 500.2500, L501.5200 #### [facility] [place] [facility] [address] [place], [address] GFR/1.73 sq M.predicted among non-blacks MDRD (S/P/Bld) [Vol rate/Area] 52 mL/min/{1.73_m2} Low >60 [facility] [place] Comment on above: Order Comment: 157 Result Comment: mL/m in/1.73m2 CKD-EPI Creatinine Equation (2020) Performed By: #### L 500.2500, L501.5200 #### [facility] [place] [facility] [address] [place], [address] Glucose [Mass/Vol] 104 mg/dL High 70-99 [facility] Comment on above: Order Comment: 157 Performed By: #### L 500.2500, L501.5200 #### [facility] [place] [facility] [address] [place], [address] Potassium [Moles/Vol] 3.6 mmol/L Normal 3.3-5.1 [facility] Comment on above: Order Comment: 157 Performed By: #### L 500.2500, L501.5200 #### [facility] [place] [facility] [address] [place], [address] Sodium [Moles/Vol] 138 mmol/L Normal 133-145 [facility] Comment on above: Order Comment: 157 Performed By: #### L 500.2500, L501.5200 #### [facility] [place] [facility] [address] [place], [address] Urea nitrogen [Mass/Vol] 26 mg/dL High 4-19 [facility] [place] Comment on above: Order Comment: 157 Performed By: #### L 500.2500, L501.5200 #### [facility] [place] [facility] [address] [place], [address] Bilirubin directOrdered By: Melissa Reed on 11-08-2024 Bilirubin.direct [Mass/Vol] 0.22 mg/dL 0.00-0.30 [facility] [place] Bilirubin, totalOrdered By: Melissa Reed on 11-08-2024 Bilirubin [Mass/Vol] 0.46 mg/dL 0.00-1.30 [facility] CBC-Complete Blood Cnt No Di ffon 11-08-2024 Erythrocyte distribution width (RBC) [Ratio] 12.8 % Normal 11.6-14.6 [facility] [place] Comment on above: Order Comment: 157 Performed By: #### L 500.2500, L501.5200 #### [facility] [place] [facility] [address] [place], [address] Hematocrit (Bld) [Volume fraction] 36.6 % Low 37-47 [facility] [place] Comment on above: Order Comment: 157 Performed By: #### L 500.2500, L501.5200 #### [facility] [place] [facility] [address] [place], [address] Hemoglobin (Bld) [Mass/Vol] 11.6 g/dL Low 12.0-15.0 [facility] [place] Comment on above: Order Comment: 157 Performed By: #### L 500.2500, L501.5200 #### [facility] [place] [facility] [address] [place], [address] MCH (RBC) [Entitic mass] 30.9 pg Normal 27.0-32.0 [facility] [place] Comment on above: Order Comment: 157 Performed By: #### L 500.2500, L501.5200 #### [facility] [place] [facility] [address] [place], [address] MCHC (RBC) [Mass/Vol] 31.7 g/dL Low 32-36 [facility] Comment on above: Order Comment: 157 Performed By: #### L 500.2500, L501.5200 #### [facility] [place] [facility] [address] [place], [address] MCV (RBC) [Entitic vol] 97.6 fL Normal 81-99 [facility] Comment on above: Order Comment: 157 Performed By: #### L 500.2500, L501.5200 #### [facility] [place] [facility] [address] [place], [address] Platelet mean volume (Bld) [Entitic vol] 10.2 fL Normal 6.2-12.0 [facility] [place] Comment on above: Order Comment: 157 Performed By: #### L 500.2500, L501.5200 #### [facility] [place] [facility] [address] [place], [address] Platelets (Bld) [#/Vol] 228 10*3/uL Normal 150-450 [facility] [place] Comment on above: Order Comment: 157 Performed By: #### L 500.2500, L501.5200 #### [facility] [place] [facility] [address] [place], [address] RBC (Bld) [#/Vol] 3.75 10*6/uL Low 4.2-5.4 [facility] Comment on above: Order Comment: 157 Performed By: #### L 500.2500, L501.5200 #### [facility] [place] [facility] [address] [place], [address] RDW SD 46.0 fl High 35.1-43.9 [facility] [place] Comment on above: Order Comment: 157 Performed By: #### L 500.2500, L501.5200 #### [facility] [place] [facility] [address] [place], [address] WBC (Bld) [#/Vol] 8.4 10*3/uL Normal 4.4-11.0 [facility] Comment on above: Order Comment: 157 Performed By: #### L 500.2500, L501.5200 #### [facility] [place] [facility] [address] [place], [address] Carbon dioxide, total [Moles /volume] in Central venous bloodOrdered By: Melissa Reed on 11-08-2024 CO2 [Moles/Vol] 28.3 mmol/L 21.0-32.0 [facility] [place] Chloride assayOrdered By: Sd Reed on 11-08-2024 Chloride [Moles/Vol] 101 mmol/L 98-108 [facility] Erythrocyte distribution wid th ratioOrdered By: Melissa Reed on 11-08-2024 Erythrocyte distribution width (RBC) [Ratio] 12.8 % 11.6-14.6 [facility] [place] Erythrocyte distribution wid th standard deviationOrdered By: Melissa Reed on 11-08-2024 Erythrocyte distribution width (RBC) [Ratio] 46.0 fl High 35.1-43.9 [facility] [place] Glomerular filtration rate ( GFR) estimation/1.73 sq m using serum, plasma, or whole bOrdered By: Melissa Reed on 11-08-2024 GFR/1.73 sq M.predicted among non-blacks MDRD (S/P/Bld) [Vol rate/Area] 52 mL/min/{1.73_m2} Low >60 [facility] [place] Comment on above: mL/min/1.73m2 CKD-EP I Creatinine Equation (2020) Hematocrit Auto (Bld) [Volum e fraction]Ordered By: Melissabridgette Reed on 11-08-2024 Hematocrit (Bld) [Volume fraction] 36.6 % Low 37-47 [facility] [place] Hemoglobin measurementOrdere d By: Melissa Reed on 11-08-2024 Hemoglobin (Bld) [Mass/Vol] 11.6 g/dL Low 12.0-15.0 [facility] [place] [facility] - Chemistry and C hemistry - challengeOrdered By: Melissa Reed on 11-08-2024 AST [Catalytic activity/Vol] 81 U/L High <32 [facility] [place] Liver Profileon 11-08-2024 Albumin [Mass/Vol] 3.3 g/dL Low 3.4-4.8 [facility] Comment on above: Order Comment: 157 Performed By: #### L 500.2500, L501.5200 #### [facility] [place] [facility] [address] [place], [place], [address] ALK PHOS 110 U/L High 35-104 [facility] [place] Comment on above: Order Comment: 157 Performed By: #### L 500.2500, L501.5200 #### [facility] [place] [facility] [address] [place], [place], [address] ALT [Catalytic activity/Vol] 87 U/L High <=34 [facility] [place] Comment on above: Order Comment: 157 Performed By: #### L 500.2500, L501.5200 #### [facility] [place] [facility] [address] [place], [address] AST [Catalytic activity/Vol] 81 U/L High <=31 [facility] [place] Comment on above: Order Comment: 157 Performed By: #### L 500.2500, L501.5200 #### [facility] [place] [facility] [address] [place], [address] Bilirubin [Mass/Vol] 0.46 mg/dL Normal 0.00-1.30 [facility] Comment on above: Order Comment: 157 Performed By: #### L 500.2500, L501.5200 #### [facility] [place] [facility] [address] [place], [address] Bilirubin.direct [Mass/Vol] 0.22 mg/dL Normal 0.00-0.30 [facility] [place] Comment on above: Order Comment: 157 Performed By: #### L 500.2500, L501.5200 #### [facility] [place] [facility] [address] [place], [address] Globulin (S) [Mass/Vol] 2.9 g/dL Normal 2.2-4.2 [facility] Comment on above: Order Comment: 157 Performed By: #### L 500.2500, L501.5200 #### [facility] [place] [facility] [address] [place], [address] T PROT 6.3 g/dL Normal 5.9-8.4 [facility] [place] Comment on above: Order Comment: 157 Performed By: #### L 500.2500, L501.5200 #### [facility] [place] [facility] [address] [place], [address] MCV (mean corpuscular volume ) determinationOrdered By: Melissa Reed on 11-08-2024 MCV (RBC) [Entitic vol] 97.6 fL 81-99 [facility] Magnesiumon 11-08-2024 Magnesium [Mass/Vol] 1.8 mg/dL Normal 1.5-2.2 [facility] Comment on above: Order Comment: 157 Performed By: #### L 500.2500, L501.5200 #### [facility] [place], [address] Magnesium measurement (mass/ volume)Ordered By: Melissa Reed on 11-08-2024 Magnesium (Unsp spec) [Mass/Vol] 1.8 mg/dL 1.5-2.2 [facility] [place] Mean corpuscular hemoglobin (MCH) determinationOrdered By: Melissa Reed on 11-08-2024 MCH (RBC) [Entitic mass] 30.9 pg 27.0-32.0 [facility] [place] Mean corpuscular hemoglobin concentration (MCHC) determinationOrdered By: Melissa Reed on 11-08-2024 MCHC (RBC) [Mass/Vol] 31.7 g/dL Low 32-36 [facility] Mean platelet volume determi nationOrdered By: Melissa Reed on 11-08-2024 Platelet mean volume (Bld) [Entitic vol] 10.2 fL 6.2-12.0 [facility] [place] Platelet countOrdered By: Sd Reed on 11-08-2024 Platelets (Bld) [#/Vol] 228 10*3/uL 150-450 [facility] [place] Potassium measurement (mass/ volume)Ordered By: Melissa Reed on 11-08-2024 Potassium (Unsp spec) [Mass/Vol] 3.6 mmol/L 3.3-5.1 [facility] RBC Auto (Bld) [#/Vol]Ordere d By: Melissa Reed on 11-08-2024 RBC (Bld) [#/Vol] 3.75 10*6/uL Low 4.2-5.4 [facility] Serum creatinine measurement (mass/volume)Ordered By: Melissa Reed on 11-08-2024 Creatinine [Mass/Vol] 1.08 mg/dL 0.70-1.20 [facility] Serum globulin measurementOr dered By: Melissa Reed on 11-08-2024 Globulin (S) [Mass/Vol] 2.9 g/dL 2.2-4.2 [facility] Serum glucose measurement (m ass/volume)Ordered By: Melissa Reed on 11-08-2024 Glucose [Mass/Vol] 104 mg/dL High 70-99 [facility] Serum or plasma alanine bro otransferase (ALT) measurementOrdered By: Melissa Reed on 11-08-2024 ALT [Catalytic activity/Vol] 87 U/L High <35 [facility] Serum or plasma albumin danae urement (mass/volume)Ordered By: Melissa Reed on 11-08-2024 Albumin [Mass/Vol] 3.3 g/dL Low 3.4-4.8 [facility] Serum or plasma alkaline moustapha sphatase measurementOrdered By: Melissa Reed on 11-08-2024 ALP [Catalytic activity/Vol] 110 U/L High 35-104 [facility] Serum or plasma calcium danae urement (mass/volume)Ordered By: Melissa Reed on 11-08-2024 Calcium [Mass/Vol] 8.8 mg/dL 7.6-11.0 [facility] Serum or plasma urea nitroge n measurement (mass/volume)Ordered By: Melissa Reed on 11-08-2024 Urea nitrogen [Mass/Vol] 26 mg/dL High 4-19 [facility] Sodium levelOrdered By: Rubin Reed on 11-08-2024 Sodium [Moles/Vol] 138 mmol/L 133-145 [facility] Total proteinOrdered By: Lillian Reed on 11-08-2024 Protein [Mass/Vol] 6.3 g/dL 5.9-8.4 [facility] White blood cell (WBC) count Ordered By: Melissa Reed on 11-08-2024 WBC (Bld) [#/Vol] 8.4 10*3/uL 4.4-11.0 [facility] Anion gap in Serum or Plasma Ordered By: Melissa Reed on 10-17-2024 Anion gap [Moles/Vol] 9 mmol/L 5-15 [facility] BUN/creatinine ratioOrdered By: Melissa Reed on 10-17-2024 Urea nitrogen/Creatinine [Mass ratio] 28.5 mg/mg High 10-20 [facility] Basic Metabolic Profile (BMP )on 10-17-2024 BUN/CRE 28.5 RATIO High - [facility] Comment on above: Order Comment: 157 Performed By: #### L 500.2500, L501.5200 #### [facility] [address] [place], [address] Calcium [Mass/Vol] 8.7 mg/dL Normal 7.6-11.0 [facility] Comment on above: Order Comment: 157 Performed By: #### L 500.2500, L501.5200 #### [facility] [address] [place], [address] Chloride [Moles/Vol] 103 mmol/L Normal 98-108 [facility] Comment on above: Order Comment: 157 Performed By: #### L 500.2500, L501.5200 #### [facility] [address] [place], [address] CO2 [Moles/Vol] 28.9 mmol/L Normal 21.0-32.0 [facility] Comment on above: Order Comment: 157 Performed By: #### L 500.2500, L501.5200 #### [facility] [address] [place], [address] Creatinine [Mass/Vol] 1.04 mg/dL Normal 0.70-1.20 [facility] Comment on above: Order Comment: 157 Performed By: #### L 500.2500, L501.5200 #### [facility] [address] [place], [address] GAP 9 Normal 5-15 [facility] Comment on above: Order Comment: 157 Performed By: #### L 500.2500, L501.5200 #### [facility] [address] [place], [address] GFR/1.73 sq M.predicted among non-blacks MDRD (S/P/Bld) [Vol rate/Area] 54 mL/min/{1.73_m2} Low >60 [facility] Comment on above: Order Comment: 157 Result Comment: mL/m in/1.73m2 CKD-EPI Creatinine Equation (2020) Performed By: #### L 500.2500, L501.5200 #### [facility] [address] [place], [address] Glucose [Mass/Vol] 106 mg/dL High 70-99 [facility] Comment on above: Order Comment: 157 Performed By: #### L 500.2500, L501.5200 #### [facility] [address] [place], [address] Potassium [Moles/Vol] 3.8 mmol/L Normal 3.3-5.1 [facility] Comment on above: Order Comment: 157 Performed By: #### L 500.2500, L501.5200 #### [facility] [address] [place], [address] Sodium [Moles/Vol] 140 mmol/L Normal 133-145 [facility] Comment on above: Order Comment: 157 Performed By: #### L 500.2500, L501.5200 #### [facility] [address] [place], [address] Urea nitrogen [Mass/Vol] 30 mg/dL High 4-19 [facility] Comment on above: Order Comment: 157 Performed By: #### L 500.2500, L501.5200 #### [facility] [address] [place], [address] Carbon dioxide, total [Moles /volume] in Central venous bloodOrdered By: Melissa Reed on 10-17-2024 CO2 [Moles/Vol] 28.9 mmol/L 21.0-32.0 [facility] Chloride assayOrdered By: Sd Reed on 10-17-2024 Chloride [Moles/Vol] 103 mmol/L 98-108 [facility] Glomerular filtration rate ( GFR) estimation/1.73 sq m using serum, plasma, or whole bOrdered By: Melissa Reed on 10-17-2024 GFR/1.73 sq M.predicted among non-blacks MDRD (S/P/Bld) [Vol rate/Area] 54 mL/min/{1.73_m2} Low >60 [facility] Comment on above: mL/min/1.73m2 CKD-EP I Creatinine Equation (2020) Magnesiumon 10-17-2024 Magnesium [Mass/Vol] 2.3 mg/dL High 1.5-2.2 [facility] Comment on above: Order Comment: 157 Performed By: #### L 500.2500, L501.5200 #### [facility] [address] [place] [address]. [place], [address] Magnesium measurement (mass/ volume)Ordered By: Melissa Reed on 10-17-2024 Magnesium (Unsp spec) [Mass/Vol] 2.3 mg/dL High 1.5-2.2 [facility] Potassium measurement (mass/ volume)Ordered By: Melissa Reed on 10-17-2024 Potassium (Unsp spec) [Mass/Vol] 3.8 mmol/L 3.3-5.1 [facility] Serum creatinine measurement (mass/volume)Ordered By: Melissa Reed on 10-17-2024 Creatinine [Mass/Vol] 1.04 mg/dL 0.70-1.20 [facility] Serum glucose measurement (m ass/volume)Ordered By: Melissa Reed on 10-17-2024 Glucose [Mass/Vol] 106 mg/dL High 70-99 [facility] Serum or plasma calcium danae urement (mass/volume)Ordered By: Melissa Reed on 10-17-2024 Calcium [Mass/Vol] 8.7 mg/dL 7.6-11.0 [facility] Serum or plasma urea nitroge n measurement (mass/volume)Ordered By: Melissa Reed on 10-17-2024 Urea nitrogen [Mass/Vol] 30 mg/dL High - [facility] Sodium levelOrdered By: Rubin Reed on 10-17-2024 Sodium [Moles/Vol] 140 mmol/L 133-145 [facility] Anion gap in Serum or Plasma Ordered By: Melissa Reed on 10-03-2024 Anion gap [Moles/Vol] 10 mmol/L 5-15 [facility] BUN/creatinine ratioOrdered By: Melissa Reed on 10-03-2024 Urea nitrogen/Creatinine [Mass ratio] 24.4 mg/mg High - [facility] Basic Metabolic Profile (BMP )on 10-03-2024 BUN/CRE 24.4 RATIO High - [facility] Comment on above: Order Comment: 157 Performed By: #### L 500.2500, L501.5200 #### [facility] [address] [place], [address] Calcium [Mass/Vol] 8.7 mg/dL Normal 7.6-11.0 [facility] Comment on above: Order Comment: 157 Performed By: #### L 500.2500, L501.5200 #### [facility] [address] [place], [address] Chloride [Moles/Vol] 102 mmol/L Normal 98-108 [facility] Comment on above: Order Comment: 157 Performed By: #### L 500.2500, L501.5200 #### [facility] [address] [place], [address] CO2 [Moles/Vol] 27.9 mmol/L Normal 21.0-32.0 [facility] Comment on above: Order Comment: 157 Performed By: #### L 500.2500, L501.5200 #### [facility] [address] [place], [address] Creatinine [Mass/Vol] 1.08 mg/dL Normal 0.70-1.20 [facility] Comment on above: Order Comment: 157 Performed By: #### L 500.2500, L501.5200 #### [facility] [address] [place], [address] GAP 10 Normal 5-15 [facility] Comment on above: Order Comment: 157 Performed By: #### L 500.2500, L501.5200 #### [facility] [address] [place], [address] GFR/1.73 sq M.predicted among non-blacks MDRD (S/P/Bld) [Vol rate/Area] 52 mL/min/{1.73_m2} Low >60 [facility] Comment on above: Order Comment: 157 Result Comment: mL/m in/1.73m2 CKD-EPI Creatinine Equation (2020) Performed By: #### L 500.2500, L501.5200 #### [facility] [address] [place], [address] Glucose [Mass/Vol] 179 mg/dL High 70-99 [facility] Comment on above: Order Comment: 157 Performed By: #### L 500.2500, L501.5200 #### [facility] [address] [place], [address] Potassium [Moles/Vol] 3.8 mmol/L Normal 3.3-5.1 [facility] Comment on above: Order Comment: 157 Performed By: #### L 500.2500, L501.5200 #### [facility] [address] [place], [address] Sodium [Moles/Vol] 139 mmol/L Normal 133-145 [facility] Comment on above: Order Comment: 157 Performed By: #### L 500.2500, L501.5200 #### [facility] [address] [place], [address] Urea nitrogen [Mass/Vol] 26 mg/dL High 4-19 [facility] Comment on above: Order Comment: 157 Performed By: #### L 500.2500, L501.5200 #### [facility] [address] [place], [place], [id number] Carbon dioxide, total [Moles /volume] in Central venous bloodOrdered By: Melissa Reed on 10-03-2024 CO2 [Moles/Vol] 27.9 mmol/L 21.0-32.0 [facility] Chloride assayOrdered By: Sd Reed on 10-03-2024 Chloride [Moles/Vol] 102 mmol/L 98-108 [facility] GFR/1.73 sq M.predicted denise g non-blacks MDRD (S/P/Bld) [Vol rate/Area]Ordered By: Melissa Reed on 10-03-2024 Estimated GFR (MDRD) Non-Af Amer 52 Low >60 [facility] Comment on above: mL/min/1.73m2 CKD-EP I Creatinine Equation (2020) Glomerular filtration rate ( GFR) estimation/1.73 sq m using serum, plasma, or whole bOrdered By: Melissa Reed on 10-03-2024 GFR/1.73 sq M.predicted among non-blacks MDRD (S/P/Bld) [Vol rate/Area] 52 mL/min/{1.73_m2} Low >60 [facility] Comment on above: mL/min/1.73m2 CKD-EP I Creatinine Equation (2020) Hemoglobin A1con 10-03-2024 HbA1c (Bld) [Mass fraction] 5.9 % High <=5.6 [facility] Comment on above: Order Comment: 157 Result Comment: Norm al < 5.7 % Prediabetic 5.7 - 6.4 % Diabetic >or= 6.5 % Please note range changes. Performed By: #### L 500.2500, L501.5200 #### [facility] [address] [place], [place], [address] Hemoglobin A1c percentageOrd ered By: Melissa Reed on 10-03-2024 HbA1c (Bld) [Mass fraction] 5.9 % High <5.7 [facility] Comment on above: Normal < 5.7 % Predi abetic 5.7 - 6.4 % Diabetic >or= 6.5 % Please note range changes. Magnesiumon 10-03-2024 Magnesium [Mass/Vol] 2.2 mg/dL Normal 1.5-2.2 [facility] Comment on above: Order Comment: 157 Performed By: #### L 500.2500, L501.5200 #### [facility] [address] [place], [address] Magnesium (Unsp spec) [Mass/ Vol]Ordered By: Melissa Reed on 10-03-2024 Magnesium [Mass/Vol] 2.2 mg/dL 1.5-2.2 [facility] Magnesium measurement (mass/ volume)Ordered By: Melissa Reed on 10-03-2024 Magnesium (Unsp spec) [Mass/Vol] 2.2 mg/dL 1.5-2.2 [facility] Potassium (Unsp spec) [Mass/ Vol]Ordered By: Melissa Reed on 10-03-2024 Potassium [Moles/Vol] 3.8 mmol/L 3.3-5.1 [facility] Potassium measurement (mass/ volume)Ordered By: Melissa Reed on 10-03-2024 Potassium (Unsp spec) [Mass/Vol] 3.8 mmol/L 3.3-5.1 [facility] Serum creatinine measurement (mass/volume)Ordered By: Melissa Reed on 10-03-2024 Creatinine [Mass/Vol] 1.08 mg/dL 0.70-1.20 [facility] Serum glucose measurement (m ass/volume)Ordered By: Melissa Reed on 10-03-2024 Glucose [Mass/Vol] 179 mg/dL High 70-99 [facility] Serum or plasma calcium danae urement (mass/volume)Ordered By: Melissa Reed on 10-03-2024 Calcium [Mass/Vol] 8.7 mg/dL 7.6-11.0 [facility] Serum or plasma urea nitroge n measurement (mass/volume)Ordered By: Melissa Reed on 10-03-2024 Urea nitrogen [Mass/Vol] 26 mg/dL High 4-19 [facility] Sodium levelOrdered By: Rubin Reed on 10-03-2024 Sodium [Moles/Vol] 139 mmol/L 133-145 [facility] Urine Cultureon 09-26-2024 [facility] Results called on 09/26/24-112 by MARYLOU to [facility] (RIZWAN) . Copy of report sent to Infection Control Printer [id number] 09/25/24 1616 ASNIPES. ESBL Escherichia coli [place] Count 25,000-50,000 MARKER ESBL producing OrganismA MARKER [...] S Tobramycin Islt LAVINIA <=1 S Normal [facility] Comment on above: Performed By: #### L 500.2500, L501.5200 #### [facility] [address] [facility] [place], [address] Bacteria LM.HPF (Urine sed) [#/Area]Ordered By: Melissa Reed on 09-23-2024 Urine Bacteria RARE /hpf None Seen [facility] Bilirubin Test strip Ql (U)O rdered By: Melissa Reed on 09-23-2024 Bilirubin Ql (U) Negative Negative [facility] Epithelial cells.squamous LM Ql (Urine sed)Ordered By: Melissa Reed on 09-23-2024 Epithelial cells.squamous LM.HPF (Urine sed) [#/Area] 0 /[HPF] 5-10 [facility] Glucose Ql (U)Ordered By: Sd Reed on 09-23-2024 Urine Glucose (UA) Normal mg/dl Normal [facility] Ketones Test strip Ql (U)Ord ered By: Melissa Reed on 09-23-2024 Ketones Ql (U) Negative Negative [facility] Microscopic analysis of urin e for red blood cells (RBC)Ordered By: Melissa Reed on 09-23-2024 Microscopic analysis of urine for red blood cells (RBC) 0 SEEN /hpf 0-5 [facility] Urine RBC 0 SEEN /hpf 0-5 [facility] Mucus LM Ql (Urine sed)Order ed By: Melissa Reed on 09-23-2024 Mucus Ql (Urine sed) 0 SEEN /hpf [facility] Nitrite Test strip Ql (U)Ord ered By: Melissa Reed on 09-23-2024 Nitrite Ql (U) Negative Negative [facility] Protein Test strip Ql (U)Ord ered By: Melissa Reed on 09-23-2024 Protein Ql (U) 30 mg/dl High Negative [facility] Squamous epithelial cells de tection in urine sediment by light microscopyOrdered By: Melissa Reed on 09-23-2024 Epithelial cells.squamous LM Ql (Urine sed) 0-5 SEEN /hpf 5-10 [facility] Urinalysis, Completeon 09-23 BACTERIA RARE Normal None Seen [facility] Comment on above: Order Comment: CLEAN CATCH Performed By: #### L 500.2500, L501.5200 #### [facility] [address] [place], [address] EPI,SQUAMOUS 0-5 SEEN Normal 5-10 [facility] Comment on above: Order Comment: CLEAN CATCH Performed By: #### L 500.2500, L501.5200 #### [facility] [address] [place], [address] WBC 50-100 SEEN Normal 0-5 [facility] Comment on above: Order Comment: CLEAN CATCH Performed By: #### L 500.2500, L501.5200 #### [facility] [address] [place], [address] Mucus Ql (Urine sed) 0 SEEN Normal [facility] Comment on above: Order Comment: CLEAN CATCH Performed By: #### L 500.2500, L501.5200 #### [facility] [address] [place], [address] RBC 0 SEEN Normal 0-5 [facility] Comment on above: Order Comment: CLEAN CATCH Performed By: #### L 500.2500, L501.5200 #### [facility] [address] [place], [address] Urine blood detectionOrdered By: Melissa Reed on 09-23-2024 Urine Occult Blood 25 /ul High Negative [facility] Urine clarityOrdered By: Lillian Reed on 09-23-2024 Clarity (U) Sl. Cloudy Clear [facility] Urine color determinationOrd ered By: Melissa Reed on 09-23-2024 Color (U) Yellow Yellow [facility] Urine cultureOrdered By: Lillian Reed on 09-23-2024 Bacteria identified Cx Nom (U) ESBL Escherichia coli Abnormal [facility] Urine glucose detectionOrder ed By: Melissa Reed on 09-23-2024 Glucose Ql (U) Normal mg/dl Normal [facility] Urine leukocyte esterase det ection by dipstickOrdered By: Melissa Reed on 09-23-2024 Leukocyte esterase Test strip Ql (U) 500 /ul High Negative [facility] Urine pHOrdered By: Melissa kerr on 09-23-2024 pH (U) 6.0 [pH] 5.0 - 8.0 [facility] Urine sediment bacteria coun t by microscopy (number/high power field)Ordered By: Melissa Reed on 09-23-2024 Bacteria LM.HPF (Urine sed) [#/Area] RARE /hpf None Seen [facility] Urine specific gravity measu rementOrdered By: Melissa Reed on 09-23-2024 Specific gravity (U) [Rel density] 1.015 1.002-1.030 [facility] Urine urobilinogen measureme ntOrdered By: Melissa Reed on 09-23-2024 Urobilinogen Ql (U) Normal mg/dl Normal [facility] Urobilinogen Ql (U)Ordered B y: Melissa Reed on 09-23-2024 Urine Urobilinogen Normal mg/dl Normal [facility] White blood cell countOrdere d By: Melissa Reed on 09-23-2024 Urine WBC 50-100 SEEN /hpf 0-5 [facility] White blood cell count 50-100 SEEN /hpf 0-5 [facility] Anion gap in Serum or Plasma Ordered By: Melissa Reed on 09-19-2024 Anion gap [Moles/Vol] 9 mmol/L 5-15 [facility] BUN/creatinine ratioOrdered By: Melissa Reed on 09-19-2024 Urea nitrogen/Creatinine [Mass ratio] 30.0 mg/mg High 10-20 [facility] Basic Metabolic Profile (BMP )on 09-19-2024 BUN/CRE 30.0 RATIO High 10-20 [facility] Comment on above: Order Comment: 157 Performed By: #### L 501.5200, L500.2500 #### [facility] [address] [place], [address] Calcium [Mass/Vol] 8.6 mg/dL Normal 7.6-11.0 [facility] Comment on above: Order Comment: 157 Performed By: #### L 501.5200, L500.2500 #### [facility] [address] [place], [address] Chloride [Moles/Vol] 103 mmol/L Normal 98-108 [facility] Comment on above: Order Comment: 157 Performed By: #### L 501.5200, L500.2500 #### [facility] [address] [place], [address] CO2 [Moles/Vol] 27.2 mmol/L Normal 21.0-32.0 [facility] Comment on above: Order Comment: 157 Performed By: #### L 501.5200, L500.2500 #### [facility] [address] [place], [address] Creatinine [Mass/Vol] 1.13 mg/dL Normal 0.70-1.20 [facility] Comment on above: Order Comment: 157 Performed By: #### L 501.5200, L500.2500 #### [facility] [address] [place], [address] GAP 9 Normal 5-15 [facility] Comment on above: Order Comment: 157 Performed By: #### L 501.5200, L500.2500 #### [facility] [address] [place], [address] GFR/1.73 sq M.predicted among non-blacks MDRD (S/P/Bld) [Vol rate/Area] 49 mL/min/{1.73_m2} Low >60 [facility] Comment on above: Order Comment: 157 Result Comment: mL/m in/1.73m2 CKD-EPI Creatinine Equation (2020) Performed By: #### L 501.5200, L500.2500 #### [facility] [address] [place], [address] Glucose [Mass/Vol] 165 mg/dL High 70-99 [facility] Comment on above: Order Comment: 157 Performed By: #### L 501.5200, L500.2500 #### [facility] [address] [place], [address] Potassium [Moles/Vol] 4.0 mmol/L Normal 3.3-5.1 [facility] Comment on above: Order Comment: 157 Performed By: #### L 501.5200, L500.2500 #### [facility] [address] [place], [address] Sodium [Moles/Vol] 140 mmol/L Normal 133-145 [facility] Comment on above: Order Comment: 157 Performed By: #### L 501.5200, L500.2500 #### [facility] [address] [place], [address] Urea nitrogen [Mass/Vol] 34 mg/dL High 4-19 [facility] Comment on above: Order Comment: 157 Performed By: #### L 501.5200, L500.2500 #### [facility] [address] [place], [address] Carbon dioxide, total [Moles /volume] in Central venous bloodOrdered By: Melissa Reed on 09-19-2024 CO2 [Moles/Vol] 27.2 mmol/L 21.0-32.0 [facility] Chloride assayOrdered By: Sd Reed on 09-19-2024 Chloride [Moles/Vol] 103 mmol/L 98-108 [facility] GFR/1.73 sq M.predicted denise g non-blacks MDRD (S/P/Bld) [Vol rate/Area]Ordered By: Melissa Reed on 09-19-2024 Estimated GFR (MDRD) Non-Af Amer 49 Low >60 [facility] Comment on above: mL/min/1.73m2 CKD-EP I Creatinine Equation (2020) Glomerular filtration rate ( GFR) estimation/1.73 sq m using serum, plasma, or whole bOrdered By: Melissa Reed on 09-19-2024 GFR/1.73 sq M.predicted among non-blacks MDRD (S/P/Bld) [Vol rate/Area] 49 mL/min/{1.73_m2} Low >60 [facility] Comment on above: mL/min/1.73m2 CKD-EP I Creatinine Equation (2020) Magnesiumon 09-19-2024 Magnesium [Mass/Vol] 2.2 mg/dL Normal 1.5-2.2 [facility] Comment on above: Order Comment: 157 Performed By: #### L 501.5200, L500.2500 #### [facility] [place], [address] Magnesium (Unsp spec) [Mass/ Vol]Ordered By: Melissa Reed on 09-19-2024 Magnesium [Mass/Vol] 2.2 mg/dL 1.5-2.2 [facility] Magnesium measurement (mass/ volume)Ordered By: Melissa Reed on 09-19-2024 Magnesium (Unsp spec) [Mass/Vol] 2.2 mg/dL 1.5-2.2 [facility] Potassium (Unsp spec) [Mass/ Vol]Ordered By: Melissa Reed on 09-19-2024 Potassium [Moles/Vol] 4.0 mmol/L 3.3-5.1 [facility] Potassium measurement (mass/ volume)Ordered By: Melissa Reed on 09-19-2024 Potassium (Unsp spec) [Mass/Vol] 4.0 mmol/L 3.3-5.1 [facility] Serum creatinine measurement (mass/volume)Ordered By: Melissa Reed on 09-19-2024 Creatinine [Mass/Vol] 1.13 mg/dL 0.70-1.20 [facility] Serum glucose measurement (m ass/volume)Ordered By: Melissa Reed on 09-19-2024 Glucose [Mass/Vol] 165 mg/dL High 70-99 [facility] Serum or plasma calcium danae urement (mass/volume)Ordered By: Melissa Reed on 09-19-2024 Calcium [Mass/Vol] 8.6 mg/dL 7.6-11.0 [facility] Serum or plasma urea nitroge n measurement (mass/volume)Ordered By: Melissa Reed on 09-19-2024 Urea nitrogen [Mass/Vol] 34 mg/dL High 4-19 [facility] Sodium levelOrdered By: Rubin Reed on 09-19-2024 Sodium [Moles/Vol] 140 mmol/L 133-145 [facility] Urine Cultureon 09-19-[address] [facility] REPOR T ESCHERICHIA COLI mCIM NEGATIVE [...] to Infection Control Printer [id number] 09/08/24 0701 CHARLEYBRITTNI. ESBL Escherichia coli [place] Count >100,000 MARKER Possible Carbapenemase producing EnterobacteriaceaeA [...] S Tobramycin Islt LAVINIA <=1 S Normal [facility] Comment on above: Performed By: #### M 100.2200, L400.0001 #### [facility] [address] [place], [place], [address] Urinalysis, Completeon 09-06 EPI,TRANSITION 0-5 SEEN Normal 0-5 [facility] Comment on above: Order Comment: CLEAN CATCH Performed By: #### M 100.2200, L400.0001 #### [facility] [address] [place], [address] BACTERIA 3+ /hpf Normal None Seen [facility] Comment on above: Order Comment: CLEAN CATCH Performed By: #### M 100.2200, L400.0001 #### [facility] [address] [place], [address] EPI,SQUAMOUS 5-10 SEEN Normal 5-10 [facility] Comment on above: Order Comment: CLEAN CATCH Performed By: #### M 100.2200, L400.0001 #### [facility] [address] [place], [address] RBC 0-5 SEEN Normal 0-5 [facility] Comment on above: Order Comment: CLEAN CATCH Performed By: #### M 100.2200, L400.0001 #### [facility] [address] [place], [address] WBC 25-50 SEEN Normal 0-5 [facility] Comment on above: Order Comment: CLEAN CATCH Performed By: #### M 100.2200, L400.0001 #### [facility] [address] [place], [address] Mucus Ql (Urine sed) 0 SEEN Normal [facility] Comment on above: Order Comment: CLEAN CATCH Performed By: #### M 100.2200, L400.0001 #### [facility] [address] [place], [address] Bilirubin Test strip Ql (U)O rdered By: Melissa Reed on 09-05-2024 Bilirubin Ql (U) Negative Negative [facility] Epithelial cells.squamous LM Ql (Urine sed)Ordered By: Melissa Reed on 09-05-2024 Epithelial cells.squamous LM.HPF (Urine sed) [#/Area] 5 /[HPF] 5-10 [facility] Glucose Ql (U)Ordered By: Sd Reed on 09-05-2024 Urine Glucose (UA) Normal mg/dl Normal [facility] Ketones Test strip Ql (U)Ord ered By: Melissa Reed on 09-05-2024 Ketones Ql (U) Negative Negative [facility] Microscopic analysis of urin e for red blood cells (RBC)Ordered By: Melissa Reed on 09-05-2024 Microscopic analysis of urine for red blood cells (RBC) 0-5 SEEN /hpf 0-5 [facility] Urine RBC 0-5 SEEN /hpf 0-5 [facility] Mucus LM Ql (Urine sed)Order ed By: Melissa Reed on 09-05-2024 Mucus Ql (Urine sed) 0 SEEN /hpf [facility] Nitrite Test strip Ql (U)Ord ered By: Melissa Reed on 09-05-2024 Nitrite Ql (U) Positive High Negative [facility] Protein Test strip Ql (U)Ord ered By: Melissa Reed on 09-05-2024 Protein Ql (U) 30 mg/dl High Negative [facility] Squamous epithelial cells de tection in urine sediment by light microscopyOrdered By: Melissa Reed on 09-05-2024 Epithelial cells.squamous LM Ql (Urine sed) 5-10 SEEN /hpf 5-10 [facility] Transitional cells LM Ql (Ur ine sed)Ordered By: Melissa Reed on 09-05-2024 Urine Transitional Epithelial Cells 0-5 SEEN /hpf 0-5 [facility] Transitional cells detection in urine sediment by light microscopyOrdered By: Melissa Reed on 09-05-2024 Transitional cells LM Ql (Urine sed) 0-5 SEEN /hpf 0-5 [facility] Urine blood detectionOrdered By: Melissa Reed on 09-05-2024 Urine Occult Blood 10 /ul High Negative [facility] Urine clarityOrdered By: Lillian Reed on 09-05-2024 Clarity (U) Sl. Cloudy Clear [facility] Urine color determinationOrd ered By: Melissa Reed on 09-05-2024 Color (U) Yellow Yellow [facility] Urine cultureOrdered By: Lillian Reed on 09-05-2024 Bacteria identified Cx Nom (U) ESBL Escherichia coli Abnormal [facility] Urine glucose detectionOrder ed By: Melissa Reed on 09-05-2024 Glucose Ql (U) Normal mg/dl Normal [facility] Urine leukocyte esterase det ection by dipstickOrdered By: Melissa Reed on 09-05-2024 Leukocyte esterase Test strip Ql (U) 500 /ul High Negative [facility] Urine pHOrdered By: Melissa kerr on 09-05-2024 pH (U) 6.5 [pH] 5.0 - 8.0 [facility] Urine sediment bacteria coun t by microscopy (number/high power field)Ordered By: Melissa Reed on 09-05-2024 Bacteria LM.HPF (Urine sed) [#/Area] 3 /[HPF] None Seen [facility] Urine specific gravity measu rementOrdered By: Melissa Reed on 09-05-2024 Specific gravity (U) [Rel density] 1.015 1.002-1.030 [facility] Urine urobilinogen measureme ntOrdered By: Melissa Reed on 09-05-2024 Urobilinogen Ql (U) Normal mg/dl Normal [facility] Urobilinogen Ql (U)Ordered B y: Melissa Reed on 09-05-2024 Urine Urobilinogen Normal mg/dl Normal [facility] White blood cell countOrdere d By: Melissa Reed on 09-05-2024 Urine WBC 25-50 SEEN /hpf 0-5 [facility] White blood cell count 25-50 SEEN /hpf 0-5 [facility] Anion gap in Serum or Plasma Ordered By: Melissa Reed on 08-22-2024 Anion gap [Moles/Vol] 11 mmol/L 5-15 [facility] BUN/creatinine ratioOrdered By: Melissa Reed on 08-22-2024 Urea nitrogen/Creatinine [Mass ratio] 21.6 mg/mg High 10- [facility] Basic Metabolic Profile (BMP )on 08-22-2024 BUN/CRE 21.6 RATIO High 04-07 [facility] Comment on above: Performed By: #### M 100.2200, L400.0001 #### [facility] [address] [place], [place], [id number] Calcium [Mass/Vol] 8.8 mg/dL Normal 7.6-11.0 [facility] Comment on above: Performed By: #### M 100.2200, L400.0001 #### [facility] [address] [place], [address] Chloride [Moles/Vol] 103 mmol/L Normal 98-108 [facility] Comment on above: Performed By: #### M 100.2200, L400.0001 #### [facility] [address] [place], [address] CO2 [Moles/Vol] 24.4 mmol/L Normal 21.0-32.0 [facility] Comment on above: Performed By: #### M 100.2200, L400.0001 #### [facility] [address] [place], [address] Creatinine [Mass/Vol] 1.14 mg/dL Normal 0.70-1.20 [facility] Comment on above: Performed By: #### M 100.2200, L400.0001 #### [facility] [address] [place], [address] GAP 11 Normal 5-15 [facility] Comment on above: Performed By: #### M 100.2200, L400.0001 #### [facility] [address] [place], [address] GFR/1.73 sq M.predicted among non-blacks MDRD (S/P/Bld) [Vol rate/Area] 49 mL/min/{1.73_m2} Low >60 [facility] Comment on above: Result Comment: mL/m in/1.73m2 CKD-EPI Creatinine Equation (2020) Performed By: #### M 100.2200, L400.0001 #### [facility] [address] [place], [address] Glucose [Mass/Vol] 104 mg/dL High 70-99 [facility] Comment on above: Performed By: #### M 100.2200, L400.0001 #### [facility] [address] [place], [address] Potassium [Moles/Vol] 4.1 mmol/L Normal 3.3-5.1 [facility] Comment on above: Result Comment: Hemo lysis present, Results??could be affected. ?? Performed By: #### M 100.2200, L400.0001 #### [facility] [address] [place], [address] Sodium [Moles/Vol] 138 mmol/L Normal 133-145 [facility] Comment on above: Performed By: #### M 100.2200, L400.0001 #### [facility] [address] [place], [address] Urea nitrogen [Mass/Vol] 25 mg/dL High 4-19 [facility] Comment on above: Performed By: #### M 100.2200, L400.0001 #### [facility] [address] [place], [address] Carbon dioxide, total [Moles /volume] in Central venous bloodOrdered By: Melissa Reed on 08-22-2024 CO2 [Moles/Vol] 24.4 mmol/L 21.0-32.0 [facility] Chloride assayOrdered By: Sd Reed on 08-22-2024 Chloride [Moles/Vol] 103 mmol/L 98-108 [facility] GFR/1.73 sq M.predicted denise g non-blacks MDRD (S/P/Bld) [Vol rate/Area]Ordered By: Melissa Reed on 08-22-2024 Estimated GFR (MDRD) Non-Af Amer 49 Low >60 [facility] Comment on above: mL/min/1.73m2 CKD-EP I Creatinine Equation (2020) Glomerular filtration rate ( GFR) estimation/1.73 sq m using serum, plasma, or whole bOrdered By: Melissa Reed on 08-22-2024 GFR/1.73 sq M.predicted among non-blacks MDRD (S/P/Bld) [Vol rate/Area] 49 mL/min/{1.73_m2} Low >60 [facility] Comment on above: mL/min/1.73m2 CKD-EP I Creatinine Equation (2020) Magnesiumon 08-22-2024 Magnesium [Mass/Vol] 2.3 mg/dL High 1.5-2.2 [facility] Comment on above: Performed By: #### M 100.2200, L400.0001 #### [facility] [address] [place], [address] Magnesium (Unsp spec) [Mass/ Vol]Ordered By: Melissa Reed on 08-22-2024 Magnesium [Mass/Vol] 2.3 mg/dL High 1.5-2.2 [facility] Magnesium measurement (mass/ volume)Ordered By: Melissa Reed on 08-22-2024 Magnesium (Unsp spec) [Mass/Vol] 2.3 mg/dL High 1.5-2.2 [facility] Potassium (Unsp spec) [Mass/ Vol]Ordered By: Melissa Reed on 08-22-2024 Potassium [Moles/Vol] 4.1 mmol/L 3.3-5.1 [facility] Comment on above: Hemolysis present, R esults could be affected. Potassium measurement (mass/ volume)Ordered By: Melissa Reed on 08-22-2024 Potassium (Unsp spec) [Mass/Vol] 4.1 mmol/L 3.3-5.1 [facility] Comment on above: Hemolysis present, R esults could be affected. Serum creatinine measurement (mass/volume)Ordered By: Melissa Reed on 08-22-2024 Creatinine [Mass/Vol] 1.14 mg/dL 0.70-1.20 [facility] Serum glucose measurement (m ass/volume)Ordered By: Melissa Reed on 08-22-2024 Glucose [Mass/Vol] 104 mg/dL High 70-99 [facility] Serum or plasma calcium danae urement (mass/volume)Ordered By: Melissa Reed on 08-22-2024 Calcium [Mass/Vol] 8.8 mg/dL 7.6-11.0 [facility] Serum or plasma urea nitroge n measurement (mass/volume)Ordered By: Melissa Reed on 08-22-2024 Urea nitrogen [Mass/Vol] 25 mg/dL High 10-05 [facility] Sodium levelOrdered By: Rubin Reed on 08-22-2024 Sodium [Moles/Vol] 138 mmol/L 133-145 [facility] Urine Cultureon 08-10-2024 [facility] Copy of report sent to Infection Control Printer [id number] 08/10/24 0702 BLUCAS. ESBL Escherichia coli [place] Count 80,000-100,000 ESBL Escherichia coli: REACTION Ampicillin [...] S Tobramycin Islt LAVINIA <=1 S Normal [facility] Comment on above: Performed By: #### M 100.2200, L400.0001 #### [facility] [address] [place], [address] Basic Metabolic Profile (BMP )on 08-08-2024 BUN/CRE 27.6 RATIO High - [facility] Comment on above: Performed By: #### L 500.2500, L501.5200 #### [facility] [address] [place], [address] CA,Total 8.6 mg/dL Normal 8.5-10.1 [facility] Comment on above: Performed By: #### L 500.2500, L501.5200 #### [facility] [address] [place], [address] Chloride [Moles/Vol] 103 mmol/L Normal 98-107 [facility] Comment on above: Performed By: #### L 500.2500, L501.5200 #### [facility] [address] [place], [address] CO2 [Moles/Vol] 31.0 mmol/L Normal 21.0-32.0 [facility] Comment on above: Performed By: #### L 500.2500, L501.5200 #### [facility] [address] [place], [address] Creatinine [Mass/Vol] 1.23 mg/dL High 0.55-1.02 [facility] Comment on above: Result Comment: The validity of the calculated GFR GFRAA in patients over 70 years has not been determined. Clinical correlation is essential. Performed By: #### L 500.2500, L501.5200 #### [facility] [address] [place], [address] EST GFR - AA 54 mL/min Low >60 [facility] Comment on above: Result Comment: Afri can Filipino GFR Calc Performed By: #### L 500.2500, L501.5200 #### [facility] [address] [place], [address] GAP 4 Low 5-15 [facility] Comment on above: Performed By: #### L 500.2500, L501.5200 #### [facility] [address] [place], [address] GFR/1.73 sq M.predicted among non-blacks MDRD (S/P/Bld) [Vol rate/Area] 45 mL/min/{1.73_m2} Low >60 [facility] Comment on above: Result Comment: Non- GFR Calc Performed By: #### L 500.2500, L501.5200 #### [facility] [address] [place], [address] Glucose [Mass/Vol] 192 mg/dL High 74-106 [facility] Comment on above: Result Comment: Fast ing Glucose result greater than or equal to 126 mg/dL suggests DIABETES MELLITUS per A.D.A. criteria. Performed By: #### L 500.2500, L501.5200 #### [facility] [address] [place], [address] Potassium [Moles/Vol] 4.1 mmol/L Normal 3.5-5.1 [facility] Comment on above: Performed By: #### L 500.2500, L501.5200 #### [facility] [address] [place], [address] Sodium [Moles/Vol] 138 mmol/L Normal 136-145 [facility] Comment on above: Performed By: #### L 500.2500, L501.5200 #### [facility] [address] [place], [address] Urea nitrogen [Mass/Vol] 34 mg/dL High 7-18 [facility] Comment on above: Performed By: #### L 500.2500, L501.5200 #### [facility] [address] [place], [address] Blood urea nitrogen (BUN)/cr eatinine ratioOrdered By: Melissa Reed on 08-08-2024 Urea nitrogen/Creatinine [Mass ratio] 27.6 mg/mg High 10-20 [facility] Carbon dioxide measurementOr dered By: Melissa Reed on 08-08-2024 CO2 [Moles/Vol] 31.0 mmol/L 21.0-32.0 [facility] Chloride measurementOrdered By: Melissa Reed on 08-08-2024 Chloride [Moles/Vol] 103 mmol/L 98-107 [facility] Estimated glomerular filtrat ion rate (GFR) AmericanOrdered By: Melissa Reed on 08-08-2024 Estimated GFR (MDRD) Amer 54 mL/min Low >60 [facility] Comment on above: GFR Calc Glomerular filtration rate ( GFR) estimationOrdered By: Melissa Reed on 08-08-2024 Estimated GFR (MDRD) Non-Af Amer 45 mL/min Low >60 [facility] Comment on above: Non- GFR Calc GFR/1.73 sq M.predicted among non-blacks MDRD (S/P/Bld) [Vol rate/Area] 45 mL/min/{1.73_m2} Low >60 [facility] Comment on above: Non- GFR Calc Glucose measurementOrdered B y: Melissa Reed on 08-08-2024 Glucose [Mass/Vol] 192 mg/dL High 74-106 [facility] Comment on above: Fasting Glucose resu lt greater than or equal to 126 mg/dL suggests DIABETES MELLITUS per A.D.A. criteria. Magnesiumon 08-08-2024 Magnesium [Mass/Vol] 2.2 mg/dL Normal 1.6-2.6 [facility] Comment on above: Performed By: #### L 500.2500, L501.5200 #### [facility] [address] [place] [address], [id number] Magnesium measurementOrdered By: Melissa Reed on 08-08-2024 Magnesium [Mass/Vol] 2.2 mg/dL 1.6-2.6 [facility] Potassium measurementOrdered By: Melissa Reed on 08-08-2024 Potassium [Moles/Vol] 4.1 mmol/L 3.5-5.1 [facility] Serum anion gap measurementO rdered By: Melissa Reed on 08-08-2024 Anion gap [Moles/Vol] 4 mmol/L Low 5-15 [facility] Serum or plasma calcium danae urement (mass/volume)Ordered By: Melissa Reed on 08-08-2024 Calcium [Mass/Vol] 8.6 mg/dL 8.5-10.1 [facility] Serum or plasma creatinine m easurement (mass/volume)Ordered By: Melissa Reed on 08-08-2024 Creatinine [Mass/Vol] 1.23 mg/dL High 0.55-1.02 [facility] Comment on above: The validity of the calculated GFR & GFRAA in patients over 70 years has not been determined. Clinical correlation is essential. Serum or plasma urea nitroge n measurement (mass/volume)Ordered By: Melissa Reed on 08-08-2024 Urea nitrogen [Mass/Vol] 34 mg/dL High 7-18 [facility] Sodium levelOrdered By: Rubin Reed on 08-08-2024 Sodium [Moles/Vol] 138 mmol/L 136-145 [facility] Urinalysis, Completeon 08-07 BACTERIA 4+ /hpf Normal None Seen [facility] Comment on above: Order Comment: CLEAN CATCH Performed By: #### M 100.2200, L400.0001 #### [facility] [address] [place], [address] EPI,SQUAMOUS 0-5 SEEN Normal 5-10 [facility] Comment on above: Order Comment: CLEAN CATCH Performed By: #### M 100.2200, L400.0001 #### [facility] [address] [place], [address] RBC 0-5 SEEN Normal 0-5 [facility] Comment on above: Order Comment: CLEAN CATCH Performed By: #### M 100.2200, L400.0001 #### [facility] [address] [place], [address] WBC 10-25 SEEN Normal 0-5 [facility] Comment on above: Order Comment: CLEAN CATCH Performed By: #### M 100.2200, L400.0001 #### [facility] [address] [place], [address] Mucus Ql (Urine sed) 0 SEEN Normal [facility] Comment on above: Order Comment: CLEAN CATCH Performed By: #### M 100.2200, L400.0001 #### [facility] [address] [place], [address] Bilirubin Test strip Ql (U)O rdered By: Melissa Reed on 08-06-2024 Bilirubin Ql (U) Negative Negative [facility] Epithelial cells.squamous LM Ql (Urine sed)Ordered By: Melissa Reed on 08-06-2024 Epithelial cells.squamous LM.HPF (Urine sed) [#/Area] 0 /[HPF] 5-10 [facility] Glucose Ql (U)Ordered By: Sd Reed on 08-06-2024 Urine Glucose (UA) Normal mg/dl Normal [facility] Ketones Test strip Ql (U)Ord ered By: Melissa Reed on 08-06-2024 Ketones Ql (U) Negative Negative [facility] Microscopic analysis of urin e for red blood cells (RBC)Ordered By: Melissa Reed on 08-06-2024 Microscopic analysis of urine for red blood cells (RBC) 0-5 SEEN /hpf 0-5 [facility] Urine RBC 0-5 SEEN /hpf 0-5 [facility] Mucus LM Ql (Urine sed)Order ed By: Melissa Reed on 08-06-2024 Mucus Ql (Urine sed) 0 SEEN /hpf [facility] Nitrite Test strip Ql (U)Ord ered By: Melissa Reed on 08-06-2024 Nitrite Ql (U) Positive High Negative [facility] Protein Test strip Ql (U)Ord ered By: Melissa Reed on 08-06-2024 Protein Ql (U) Negative Negative [facility] Squamous epithelial cells de tection in urine sediment by light microscopyOrdered By: Melissa Reed on 08-06-2024 Epithelial cells.squamous LM Ql (Urine sed) 0-5 SEEN /hpf 5-10 [facility] Urine blood detectionOrdered By: Melissa Reed on 08-06-2024 Urine Occult Blood Negative Negative [facility] Urine clarityOrdered By: Lillian Reed on 08-06-2024 Clarity (U) Cloudy Clear [facility] Urine color determinationOrd ered By: Melissa Reed on 08-06-2024 Color (U) Yellow Yellow [facility] Urine cultureOrdered By: Lillian Reed on 08-06-2024 Bacteria identified Cx Nom (U) ESBL Escherichia coli Abnormal [facility] Urine glucose detectionOrder ed By: Melissa Reed on 08-06-2024 Glucose Ql (U) Normal mg/dl Normal [facility] Urine leukocyte esterase det ection by dipstickOrdered By: Melissa Reed on 08-06-2024 Leukocyte esterase Test strip Ql (U) 500 /ul High Negative [facility] Urine pHOrdered By: Melissa Heaton udla on 08-06-2024 pH (U) 7.0 [pH] 5.0 - 8.0 [facility] Urine sediment bacteria coun t by microscopy (number/high power field)Ordered By: Melissa Reed on 08-06-2024 Bacteria LM.HPF (Urine sed) [#/Area] 4 /[HPF] None Seen [facility] Urine specific gravity measu rementOrdered By: Melissa Reed on 08-06-2024 Specific gravity (U) [Rel density] 1.010 1.002-1.030 [facility] Urine urobilinogen measureme ntOrdered By: Melissa Reed on 08-06-2024 Urobilinogen Ql (U) Normal mg/dl Normal [facility] Urobilinogen Ql (U)Ordered B y: Melissa Reed on 08-06-2024 Urine Urobilinogen Normal mg/dl Normal [facility] White blood cell countOrdere d By: Melissa Reed on 08-06-2024 Urine WBC 10-25 SEEN /hpf 0-5 [facility] White blood cell count 10-25 SEEN /hpf 0-5 [facility] Cerv Spine 2 or 3 Viewson Cerv Spine 2 or 3 Views [facility] Imaging Services [address] [place] [address] Cerv Spine 2 or 3 Views MR#: [id number] Acct: [id number] Name: RADHA SANDOVAL Rep #: [id number] : 1945 F 78 From: Abner Castro DO PCP: Melissa Reed MD Status: REG CLI Study: Cerv Spine 2 or 3 Views Date of Exam: 07/31/24 Exam# [id number] Ordering Dr: Gypsy Argueta MD PROCEDURE: CERVICAL [...] Reversal of the cervical lordosis. [facility] CC: Dr. Gypsy Argueta MD; Melissa Reed MD [employer]: Signed Normal [facility] Shoulder min 2 Viewson 07-31 Shoulder min 2 Views [facility] Imaging Services [address] [place] [id number] Shoulder min 2 Views MR#: [id number] Acct: [id number] Name: RADHA SANDOVAL Rep #: [id number] : 1945 F 78 From: Devendra Magallon PCP: Melissa Reed MD Status: REG CLI Study: Shoulder min 2 Views Date of Exam: 07/31/24 Exam# [id number] Ordering Dr: Gypsy Argueta MD PROCEDURE: Left [...] Dr. Gypsy Argueta MD; Melissa Reed MD Vp [employer] Development: Signed Normal [facility] Shoulder min 2 Views [facility] Imaging Services [address] [place] [address] Shoulder min 2 Views MR#: [id number] Acct: [id number] Name: RADHA SANDOVAL Rep #: [id number] : 1945 F 78 From: Devendra Magallon PCP: Melissa Reed MD Status: REG CLI Study: Shoulder min 2 Views Date of Exam: 07/31/24 Exam# [id number] Ordering Dr: Gypsy Argueta MD PROCEDURE: Right shoulder radiographs REASON FOR EXAM: Pain TECHNIQUE: Five views of the right shoulder COMPARISON: None. FINDINGS: See impression RAD/Shoulder min 2 Views IMPRESSION: Limited exam due to patient immobility. Negative for acute displaced fracture or dislocation. Probable severe glenohumeral joint osteoarthritis. Acromioclavicular joint is intact. Reading Location: [facility] CC: Dr. Gypsy Argueta MD; Melissa Reed MD Vp Customer Development: Signed Normal [facility] Basic Metabolic Profile (BMP )on 07-25-2024 BUN/CRE 26.7 RATIO High 10-20 [facility] Comment on above: Order Comment: 157 Performed By: #### L 500.2500, L501.5200 #### [facility] [address] [place], [address] CA,Total 9.1 mg/dL Normal 8.5-10.1 [facility] Comment on above: Order Comment: 157 Performed By: #### L 500.2500, L501.5200 #### [facility] [address] [facility] [place], [address] Chloride [Moles/Vol] 103 mmol/L Normal 98-107 [facility] Comment on above: Order Comment: 157 Performed By: #### L 500.2500, L501.5200 #### [facility] [address] [place], [address] CO2 [Moles/Vol] 31.0 mmol/L Normal 21.0-32.0 [facility] Comment on above: Order Comment: 157 Performed By: #### L 500.2500, L501.5200 #### [facility] [address] [place], [address] Creatinine [Mass/Vol] 0.97 mg/dL Normal 0.55-1.02 [facility] Comment on above: Order Comment: 157 Result Comment: The validity of the calculated GFR GFRAA in patients over 70 years has not been determined. Clinical correlation is essential. Performed By: #### L 500.2500, L501.5200 #### [facility] [address] [place], [address] EST GFR - AA 71 mL/min Normal >60 [facility] Comment on above: Order Comment: 157 Result Comment: Afri can Filipino GFR Calc Performed By: #### L 500.2500, L501.5200 #### [facility] [address] [place], [address] GAP 4 Low 5-15 [facility] Comment on above: Order Comment: 157 Performed By: #### L 500.2500, L501.5200 #### [facility] [address] [place], [address] GFR/1.73 sq M.predicted among non-blacks MDRD (S/P/Bld) [Vol rate/Area] 58 mL/min/{1.73_m2} Low >60 [facility] Comment on above: Order Comment: 157 Result Comment: Non- GFR Calc Performed By: #### L 500.2500, L501.5200 #### [facility] [address] [place], [address] Glucose [Mass/Vol] 120 mg/dL High 74-106 [facility] Comment on above: Order Comment: 157 Result Comment: Fast ing Glucose result from 100 to 125 mg/dL suggests IMPAIRED HOMEOSTASIS per A.D.A. criteria. Performed By: #### L 500.2500, L501.5200 #### [facility] [address] [place], [address] Potassium [Moles/Vol] 3.9 mmol/L Normal 3.5-5.1 [facility] Comment on above: Order Comment: 157 Performed By: #### L 500.2500, L501.5200 #### [facility] [address] [place], [address] Sodium [Moles/Vol] 138 mmol/L Normal 136-145 [facility] Comment on above: Order Comment: 157 Performed By: #### L 500.2500, L501.5200 #### [facility] [address] [place], [address] Urea nitrogen [Mass/Vol] 26 mg/dL High 7-18 [facility] Comment on above: Order Comment: 157 Performed By: #### L 500.2500, L501.5200 #### [facility] [address] [place], [address] Blood urea nitrogen (BUN)/cr eatinine ratioOrdered By: Melissa Reed on 07-25-2024 Urea nitrogen/Creatinine [Mass ratio] 26.7 mg/mg High 10-20 [facility] Carbon dioxide measurementOr dered By: Melissa Reed on 07-25-2024 CO2 [Moles/Vol] 31.0 mmol/L 21.0-32.0 [facility] Chloride measurementOrdered By: Melissa Reed on 07-25-2024 Chloride [Moles/Vol] 103 mmol/L 98-107 [facility] Estimated glomerular filtrat ion rate (GFR) AmericanOrdered By: Melissa Reed on 07-25-2024 Estimated GFR (MDRD) Amer 71 mL/min >60 [facility] Comment on above: GFR Calc Glomerular filtration rate ( GFR) estimationOrdered By: Melissa Reed on 07-25-2024 Estimated GFR (MDRD) Non-Af Amer 58 mL/min Low >60 [facility] Comment on above: Non- GFR Calc Glucose measurementOrdered B y: Melissa Reed on 07-25-2024 Glucose [Mass/Vol] 120 mg/dL High 74-106 [facility] Comment on above: Fasting Glucose resu lt from 100 to 125 mg/dL suggests IMPAIRED HOMEOSTASIS per A.D.A. criteria. Magnesiumon 07-25-2024 Magnesium [Mass/Vol] 2.2 mg/dL Normal 1.6-2.6 [facility] Comment on above: Order Comment: 157 Performed By: #### L 500.2500, L501.5200 #### [facility] [facility] [address] [place], [address] Magnesium measurementOrdered By: Melissa Reed on 07-25-2024 Magnesium [Mass/Vol] 2.2 mg/dL 1.6-2.6 [facility] Potassium measurementOrdered By: Melissa Reed on 07-25-2024 Potassium [Moles/Vol] 3.9 mmol/L 3.5-5.1 [facility] Serum anion gap measurementO rdered By: Melissa Reed on 07-25-2024 Anion gap [Moles/Vol] 4 mmol/L Low 5-15 [facility] Serum or plasma calcium danae urement (mass/volume)Ordered By: Melissa Reed on 07-25-2024 Calcium [Mass/Vol] 9.1 mg/dL 8.5-10.1 [facility] Serum or plasma creatinine m easurement (mass/volume)Ordered By: Melissa Reed on 07-25-2024 Creatinine [Mass/Vol] 0.97 mg/dL 0.55-1.02 [facility] Comment on above: The validity of the calculated GFR & GFRAA in patients over 70 years has not been determined. Clinical correlation is essential. Serum or plasma urea nitroge n measurement (mass/volume)Ordered By: Melissa Reed on 07-25-2024 Urea nitrogen [Mass/Vol] 26 mg/dL High 7-18 [facility] Sodium levelOrdered By: Rubin Millskasidiony on 07-25-2024 Sodium [Moles/Vol] 138 mmol/L 136-145 [facility] Basic Metabolic Profile (BMP )on 07-11-2024 BUN/CRE 30.4 RATIO High 10-20 [facility] Comment on above: Order Comment: 157 Performed By: #### L 500.2500, L501.5200 #### [facility] [address] [place], [address] CA,Total 9.0 mg/dL Normal 8.5-10.1 [facility] Comment on above: Order Comment: 157 Performed By: #### L 500.2500, L501.5200 #### [facility] [address] [place], [address] Chloride [Moles/Vol] 103 mmol/L Normal 98-107 [facility] Comment on above: Order Comment: 157 Performed By: #### L 500.2500, L501.5200 #### [facility] [address] [place], [address] CO2 [Moles/Vol] 32.0 mmol/L Normal 21.0-32.0 [facility] Comment on above: Order Comment: 157 Performed By: #### L 500.2500, L501.5200 #### [facility] [address] [place], [address] Creatinine [Mass/Vol] 0.86 mg/dL Normal 0.55-1.02 [facility] Comment on above: Order Comment: 157 Result Comment: The validity of the calculated GFR GFRAA in patients over 70 years has not been determined. Clinical correlation is essential. Performed By: #### L 500.2500, L501.5200 #### [facility] [address] [place], [address] EST GFR - AA 82 mL/min Normal >60 [facility] Comment on above: Order Comment: 157 Result Comment: Afri can Filipino GFR Calc Performed By: #### L 500.2500, L501.5200 #### [facility] [address] [place], [address] GAP 5 Normal 5-15 [facility] Comment on above: Order Comment: 157 Performed By: #### L 500.2500, L501.5200 #### [facility] [address] [place], [address] GFR/1.73 sq M.predicted among non-blacks MDRD (S/P/Bld) [Vol rate/Area] 68 mL/min/{1.73_m2} Normal >60 [facility] Comment on above: Order Comment: 157 Result Comment: Non- GFR Calc Performed By: #### L 500.2500, L501.5200 #### [facility] [address] [place], [address] Glucose [Mass/Vol] 109 mg/dL High 74-106 [facility] Comment on above: Order Comment: 157 Result Comment: Fast ing Glucose result from 100 to 125 mg/dL suggests IMPAIRED HOMEOSTASIS per A.D.A. criteria. Performed By: #### L 500.2500, L501.5200 #### [facility] [address] [place], [address] Potassium [Moles/Vol] 4.1 mmol/L Normal 3.5-5.1 [facility] Comment on above: Order Comment: 157 Performed By: #### L 500.2500, L501.5200 #### [facility] [address] [place], [address] Sodium [Moles/Vol] 140 mmol/L Normal 136-145 [facility] Comment on above: Order Comment: 157 Performed By: #### L 500.2500, L501.5200 #### [facility] [address] [place], [address] Urea nitrogen [Mass/Vol] 26 mg/dL High 7-18 [facility] Comment on above: Order Comment: 157 Performed By: #### L 500.2500, L501.5200 #### [facility] [address] [place], [place], [address] Blood urea nitrogen (BUN)/cr eatinine ratioOrdered By: Melissa Reed on 07-11-2024 Urea nitrogen/Creatinine [Mass ratio] 30.4 mg/mg High 10-20 [facility] Carbon dioxide measurementOr dered By: Melissa Reed on 07-11-2024 CO2 [Moles/Vol] 32.0 mmol/L 21.0-32.0 [facility] Chloride measurementOrdered By: Melissa Reed on 07-11-2024 Chloride [Moles/Vol] 103 mmol/L 98-107 [facility] Estimated glomerular filtrat ion rate (GFR) AmericanOrdered By: Melissa Reed on 07-11-2024 Estimated GFR (MDRD) Amer 82 mL/min >60 [facility] Comment on above: GFR Calc Glomerular filtration rate ( GFR) estimationOrdered By: Melissa Reed on 07-11-2024 Estimated GFR (MDRD) Non-Af Amer 68 mL/min >60 [facility] Comment on above: Non- GFR Calc Glucose measurementOrdered B y: Melissa Reed on 07-11-2024 Glucose [Mass/Vol] 109 mg/dL High 74-106 [facility] Comment on above: Fasting Glucose resu lt from 100 to 125 mg/dL suggests IMPAIRED HOMEOSTASIS per A.D.A. criteria. Magnesiumon 07-11-2024 Magnesium [Mass/Vol] 2.2 mg/dL Normal 1.6-2.6 [facility] Comment on above: Order Comment: 157 Performed By: #### L 500.2500, L501.5200 #### [facility] [address] [place], [place], [id number] Magnesium measurementOrdered By: Melissa Reed on 07-11-2024 Magnesium [Mass/Vol] 2.2 mg/dL 1.6-2.6 [facility] Potassium measurementOrdered By: Melissa Reed on 07-11-2024 Potassium [Moles/Vol] 4.1 mmol/L 3.5-5.1 [facility] Serum anion gap measurementO rdered By: Melissa Reed on 07-11-2024 Anion gap [Moles/Vol] 5 mmol/L 5-15 [facility] Serum or plasma calcium danae urement (mass/volume)Ordered By: Melissa Reed on 07-11-2024 Calcium [Mass/Vol] 9.0 mg/dL 8.5-10.1 [facility] Serum or plasma creatinine m easurement (mass/volume)Ordered By: Melissa Reed on 07-11-2024 Creatinine [Mass/Vol] 0.86 mg/dL 0.55-1.02 [facility] Comment on above: The validity of the calculated GFR & GFRAA in patients over 70 years has not been determined. Clinical correlation is essential. Serum or plasma urea nitroge n measurement (mass/volume)Ordered By: Melissa Reed on 07-11-2024 Urea nitrogen [Mass/Vol] 26 mg/dL High 7-18 [facility] Sodium levelOrdered By: Rubin Reed on 07-11-2024 Sodium [Moles/Vol] 140 mmol/L 136-145 [facility] Basic Metabolic Profile (BMP )on 06-27-2024 BUN/CRE 23.7 RATIO High 10-20 [facility] Comment on above: Order Comment: 157 Performed By: #### L 500.2500, L501.5200 #### [facility] [address] [place], [address] CA,Total 8.7 mg/dL Normal 8.5-10.1 [facility] Comment on above: Order Comment: 157 Performed By: #### L 500.2500, L501.5200 #### [facility] [address] [place], [address] Chloride [Moles/Vol] 105 mmol/L Normal 98-107 [facility] Comment on above: Order Comment: 157 Performed By: #### L 500.2500, L501.5200 #### [facility] [address] [place], [address] CO2 [Moles/Vol] 31.0 mmol/L Normal 21.0-32.0 [facility] Comment on above: Order Comment: 157 Performed By: #### L 500.2500, L501.5200 #### [facility] [address] [place], [address] Creatinine [Mass/Vol] 1.18 mg/dL High 0.55-1.02 [facility] Comment on above: Order Comment: 157 Result Comment: The validity of the calculated GFR GFRAA in patients over 70 years has not been determined. Clinical correlation is essential. Performed By: #### L 500.2500, L501.5200 #### [facility] [address] [place], [address] EST GFR - AA 57 mL/min Low >60 [facility] Comment on above: Order Comment: 157 Result Comment: Afri can Filipino GFR Calc Performed By: #### L 500.2500, L501.5200 #### [facility] [address] [place], [address] GAP 4 Low 5-15 [facility] Comment on above: Order Comment: 157 Performed By: #### L 500.2500, L501.5200 #### [facility] [address] [place], [address] GFR/1.73 sq M.predicted among non-blacks MDRD (S/P/Bld) [Vol rate/Area] 47 mL/min/{1.73_m2} Low >60 [facility] Comment on above: Order Comment: 157 Result Comment: Non- GFR Calc Performed By: #### L 500.2500, L501.5200 #### [facility] [address] [place], [address] Glucose [Mass/Vol] 85 mg/dL Normal 74-106 [facility] Comment on above: Order Comment: 157 Performed By: #### L 500.2500, L501.5200 #### [facility] [address] [place], [address] Potassium [Moles/Vol] 3.8 mmol/L Normal 3.5-5.1 [facility] Comment on above: Order Comment: 157 Performed By: #### L 500.2500, L501.5200 #### [facility] [address] [place], [address] Sodium [Moles/Vol] 140 mmol/L Normal 136-145 [facility] Comment on above: Order Comment: 157 Performed By: #### L 500.2500, L501.5200 #### [facility] [address] [place], [address] Urea nitrogen [Mass/Vol] 28 mg/dL High 7-18 [facility] Comment on above: Order Comment: 157 Performed By: #### L 500.2500, L501.5200 #### [facility] [address] [place], [address] Blood urea nitrogen (BUN)/cr eatinine ratioOrdered By: Melissa Reed on 06-27-2024 Urea nitrogen/Creatinine [Mass ratio] 23.7 mg/mg High 10-20 [facility] Carbon dioxide measurementOr dered By: Melissa Reed on 06-27-2024 CO2 [Moles/Vol] 31.0 mmol/L 21.0-32.0 [facility] Chloride measurementOrdered By: Melissa Reed on 06-27-2024 Chloride [Moles/Vol] 105 mmol/L 98-107 [facility] Estimated glomerular filtrat ion rate (GFR) AmericanOrdered By: Melissa Reed on 06-27-2024 Estimated GFR (MDRD) Amer 57 mL/min Low >60 [facility] Comment on above: GFR Calc Glomerular filtration rate ( GFR) estimationOrdered By: Melissa Reed on 06-27-2024 Estimated GFR (MDRD) Non-Af Amer 47 mL/min Low >60 [facility] Comment on above: Non- GFR Calc Glucose measurementOrdered B y: Melissa Reed on 06-27-2024 Glucose [Mass/Vol] 85 mg/dL 74-106 [facility] Magnesiumon 06-27-2024 Magnesium [Mass/Vol] 2.2 mg/dL Normal 1.6-2.6 [facility] Comment on above: Order Comment: 157 Performed By: #### L 500.2500, L501.5200 #### [facility] [address] [place], [address] Magnesium measurementOrdered By: Melissa Reed on 06-27-2024 Magnesium [Mass/Vol] 2.2 mg/dL 1.6-2.6 [facility] Potassium measurementOrdered By: Melissa Reed on 06-27-2024 Potassium [Moles/Vol] 3.8 mmol/L 3.5-5.1 [facility] Serum anion gap measurementO rdered By: Melissa Reed on 06-27-2024 Anion gap [Moles/Vol] 4 mmol/L Low 5-15 [facility] Serum or plasma calcium danae urement (mass/volume)Ordered By: Melissa Reed on 06-27-2024 Calcium [Mass/Vol] 8.7 mg/dL 8.5-10.1 [facility] Serum or plasma creatinine m easurement (mass/volume)Ordered By: Melissa Reed on 06-27-2024 Creatinine [Mass/Vol] 1.18 mg/dL High 0.55-1.02 [facility] Comment on above: The validity of the calculated GFR & GFRAA in patients over 70 years has not been determined. Clinical correlation is essential. Serum or plasma urea nitroge n measurement (mass/volume)Ordered By: Melissa Reed on 06-27-2024 Urea nitrogen [Mass/Vol] 28 mg/dL High 7-18 [facility] Sodium levelOrdered By: Rubin bethany Millsnaz on 06-27-2024 Sodium [Moles/Vol] 140 mmol/L 136-145 [facility] Basic Metabolic Profile (BMP )on 06-13-2024 BUN/CRE 32.6 RATIO High 10-20 [facility] Comment on above: Performed By: #### L 501.5200, L500.2500 #### [facility] [address] [place], [address] CA,Total 8.7 mg/dL Normal 8.5-10.1 [facility] Comment on above: Performed By: #### L 501.5200, L500.2500 #### [facility] [address] [place], [address] Chloride [Moles/Vol] 105 mmol/L Normal 98-107 [facility] Comment on above: Performed By: #### L 501.5200, L500.2500 #### [facility] [address] [place], [address] CO2 [Moles/Vol] 28.0 mmol/L Normal 21.0-32.0 [facility] Comment on above: Performed By: #### L 501.5200, L500.2500 #### [facility] [address] [place], [address] Creatinine [Mass/Vol] 0.98 mg/dL Normal 0.55-1.02 [facility] Comment on above: Result Comment: The validity of the calculated GFR GFRAA in patients over 70 years has not been determined. Clinical correlation is essential. Performed By: #### L 501.5200, L500.2500 #### [facility] [address] [place], [address] EST GFR - AA 70 mL/min Normal >60 [facility] Comment on above: Result Comment: Afri can Filipino GFR Calc Performed By: #### L 501.5200, L500.2500 #### [facility] [address] [place], [address] GAP 5 Normal 5-15 [facility] Comment on above: Performed By: #### L 501.5200, L500.2500 #### [facility] [address] [place], [address] GFR/1.73 sq M.predicted among non-blacks MDRD (S/P/Bld) [Vol rate/Area] 58 mL/min/{1.73_m2} Low >60 [facility] Comment on above: Result Comment: Non- GFR Calc Performed By: #### L 501.5200, L500.2500 #### [facility] [address] [place], [address] Glucose [Mass/Vol] 161 mg/dL High 74-106 [facility] Comment on above: Result Comment: Fast ing Glucose result greater than or equal to 126 mg/dL suggests DIABETES MELLITUS per A.D.A. criteria. Performed By: #### L 501.5200, L500.2500 #### [facility] [address] [place], [address] Potassium [Moles/Vol] 3.8 mmol/L Normal 3.5-5.1 [facility] Comment on above: Result Comment: Slig ht Hemolysis, Result may be falsely increased. Performed By: #### L 501.5200, L500.2500 #### [facility] [address] [place], [address] Sodium [Moles/Vol] 138 mmol/L Normal 136-145 [facility] Comment on above: Performed By: #### L 501.5200, L500.2500 #### [facility] [address] [place], [address] Urea nitrogen [Mass/Vol] 32 mg/dL High 7-18 [facility] Comment on above: Performed By: #### L 501.5200, L500.2500 #### [facility] [address] [place], [place], [id number] Blood urea nitrogen (BUN)/cr eatinine ratioOrdered By: Melissa Reed on 06-13-2024 Urea nitrogen/Creatinine [Mass ratio] 32.6 mg/mg High 10-20 [facility] Carbon dioxide measurementOr dered By: Melissa Reed on 06-13-2024 CO2 [Moles/Vol] 28.0 mmol/L 21.0-32.0 [facility] Chloride measurementOrdered By: Melissa Reed on 06-13-2024 Chloride [Moles/Vol] 105 mmol/L 98-107 [facility] Estimated glomerular filtrat ion rate (GFR) AmericanOrdered By: Melissa Reed on 06-13-2024 Estimated GFR (MDRD) Amer 70 mL/min >60 [facility] Comment on above: GFR Calc Glomerular filtration rate ( GFR) estimationOrdered By: Melissa Reed on 06-13-2024 Estimated GFR (MDRD) Non-Af Amer 58 mL/min Low >60 [facility] Comment on above: Non- GFR Calc Glucose measurementOrdered B y: Melissa Reed on 06-13-2024 Glucose [Mass/Vol] 161 mg/dL High 74-106 [facility] Comment on above: Fasting Glucose resu lt greater than or equal to 126 mg/dL suggests DIABETES MELLITUS per A.D.A. criteria. Magnesiumon 06-13-2024 Magnesium [Mass/Vol] 2.2 mg/dL Normal 1.6-2.6 [facility] Comment on above: Result Comment: Slig ht Hemolysis, Result may be falsely increased. Performed By: #### M 100.2200, L400.0001 #### [facility] [address] [place], [place], [address] Magnesium measurementOrdered By: Melissa Reed on 06-13-2024 Magnesium [Mass/Vol] 2.2 mg/dL 1.6-2.6 [facility] Comment on above: Slight Hemolysis, Re sult may be falsely increased. Potassium measurementOrdered By: Melissa Reed on 06-13-2024 Potassium [Moles/Vol] 3.8 mmol/L 3.5-5.1 [facility] Comment on above: Slight Hemolysis, Re sult may be falsely increased. Serum anion gap measurementO rdered By: Melissa Reed on 06-13-2024 Anion gap [Moles/Vol] 5 mmol/L 5-15 [facility] Serum or plasma calcium danae urement (mass/volume)Ordered By: Melissa Reed on 06-13-2024 Calcium [Mass/Vol] 8.7 mg/dL 8.5-10.1 [facility] Serum or plasma creatinine m easurement (mass/volume)Ordered By: Melissa Reed on 06-13-2024 Creatinine [Mass/Vol] 0.98 mg/dL 0.55-1.02 [facility] Comment on above: The validity of the calculated GFR & GFRAA in patients over 70 years has not been determined. Clinical correlation is essential. Serum or plasma urea nitroge n measurement (mass/volume)Ordered By: Melissa Reed on 06-13-2024 Urea nitrogen [Mass/Vol] 32 mg/dL High 7-18 [facility] Sodium levelOrdered By: Rubin Reed on 06-13-2024 Sodium [Moles/Vol] 138 mmol/L 136-145 [facility] Basic Metabolic Profile (BMP )on 05-29-2024 BUN/CRE 22.1 RATIO High 10-20 [facility] Comment on above: Order Comment: CLEAN CATCH Performed By: #### M 100.2200, L400.0001 #### [facility] [address] [place], [address] CA,Total 8.9 mg/dL Normal 8.5-10.1 [facility] Comment on above: Order Comment: CLEAN CATCH Performed By: #### M 100.2200, L400.0001 #### [facility] [address] [place], [address] Chloride [Moles/Vol] 106 mmol/L Normal 98-107 [facility] Comment on above: Order Comment: CLEAN CATCH Performed By: #### M 100.2200, L400.0001 #### [facility] [address] [place], [address] CO2 [Moles/Vol] 32.0 mmol/L Normal 21.0-32.0 [facility] Comment on above: Order Comment: CLEAN CATCH Performed By: #### M 100.2200, L400.0001 #### [facility] [address] [place], [address] Creatinine [Mass/Vol] 1.31 mg/dL High 0.55-1.02 [facility] Comment on above: Order Comment: CLEAN CATCH Result Comment: The validity of the calculated GFR GFRAA in patients over 70 years has not been determined. Clinical correlation is essential. Performed By: #### M 100.0, L400.0001 #### [facility] [address] [place], [address] EST GFR - AA 50 mL/min Low >60 [facility] Comment on above: Order Comment: CLEAN CATCH Result Comment: Afri can Filipino GFR Calc Performed By: #### M 100.0, L400.0001 #### [facility] [address] [place], [address] GAP 5 Normal 5-15 [facility] Comment on above: Order Comment: CLEAN CATCH Performed By: #### M 100.2200, L400.0001 #### [facility] [address] [place], [address] GFR/1.73 sq M.predicted among non-blacks MDRD (S/P/Bld) [Vol rate/Area] 41 mL/min/{1.73_m2} Low >60 [facility] Comment on above: Order Comment: CLEAN CATCH Result Comment: Non- GFR Calc Performed By: #### M 100.2200, L400.0001 #### [facility] [address] [place], [address] Glucose [Mass/Vol] 116 mg/dL High 74-106 [facility] Comment on above: Order Comment: CLEAN CATCH Result Comment: Fast ing Glucose result from 100 to 125 mg/dL suggests IMPAIRED HOMEOSTASIS per A.D.A. criteria. Performed By: #### M 100.2200, L400.0001 #### [facility] [address] [place], [address] Potassium [Moles/Vol] 3.6 mmol/L Normal 3.5-5.1 [facility] Comment on above: Order Comment: CLEAN CATCH Performed By: #### M 100.2200, L400.0001 #### [facility] [address] [place], [address] Sodium [Moles/Vol] 142 mmol/L Normal 136-145 [facility] Comment on above: Order Comment: CLEAN CATCH Performed By: #### M 100.2200, L400.0001 #### [facility] [address] [place], [address] Urea nitrogen [Mass/Vol] 29 mg/dL High 7-18 [facility] Comment on above: Order Comment: CLEAN CATCH Performed By: #### M 100.2200, L400.0001 #### [facility] [address] [place], [address] Blood urea nitrogen (BUN)/cr eatinine ratioOrdered By: Melissa Reed on 05-29-2024 Urea nitrogen/Creatinine [Mass ratio] 22.1 mg/mg High 10-20 [facility] Carbon dioxide measurementOr dered By: Melissa Reed on 05-29-2024 CO2 [Moles/Vol] 32.0 mmol/L 21.0-32.0 [facility] Chloride measurementOrdered By: Melissa Reed on 05-29-2024 Chloride [Moles/Vol] 106 mmol/L 98-107 [facility] Estimated glomerular filtrat ion rate (GFR) AmericanOrdered By: Melissa Reed on 05-29-2024 Estimated GFR (MDRD) Amer 50 mL/min Low >60 [facility] Comment on above: GFR Calc Glomerular filtration rate ( GFR) estimationOrdered By: Melissa Reed on 05-29-2024 Estimated GFR (MDRD) Non-Af Amer 41 mL/min Low >60 [facility] Comment on above: Non- GFR Calc Glucose measurementOrdered B y: Melissa Reed on 05-29-2024 Glucose [Mass/Vol] 116 mg/dL High 74-106 [facility] Comment on above: Fasting Glucose resu lt from 100 to 125 mg/dL suggests IMPAIRED HOMEOSTASIS per A.D.A. criteria. Magnesiumon 05-29-2024 Magnesium [Mass/Vol] 2.0 mg/dL Normal 1.6-2.6 [facility] Comment on above: Order Comment: CLEAN CATCH Performed By: #### M 100.2200, L400.0001 #### [facility] [address] [place] [address]. [place], [address] Magnesium measurementOrdered By: Melissa Reed on 05-29-2024 Magnesium [Mass/Vol] 2.0 mg/dL 1.6-2.6 [facility] Potassium measurementOrdered By: Melissa Reed on 05-29-2024 Potassium [Moles/Vol] 3.6 mmol/L 3.5-5.1 [facility] Serum anion gap measurementO rdered By: Melissa Reed on 05-29-2024 Anion gap [Moles/Vol] 5 mmol/L 5-15 [facility] Serum or plasma calcium danae urement (mass/volume)Ordered By: Melissa Reed on 05-29-2024 Calcium [Mass/Vol] 8.9 mg/dL 8.5-10.1 [facility] Serum or plasma creatinine m easurement (mass/volume)Ordered By: Melissa Reed on 05-29-2024 Creatinine [Mass/Vol] 1.31 mg/dL High 0.55-1.02 [facility] Comment on above: The validity of the calculated GFR & GFRAA in patients over 70 years has not been determined. Clinical correlation is essential. Serum or plasma urea nitroge n measurement (mass/volume)Ordered By: Melissa Reed on 05-29-2024 Urea nitrogen [Mass/Vol] 29 mg/dL High 7-18 [facility] Sodium levelOrdered By: Rubin Reed on 05-29-2024 Sodium [Moles/Vol] 142 mmol/L 136-145 [facility] Basic Metabolic Profile (BMP )on 05-15-2024 BUN/CRE 31.1 RATIO High 10-20 [facility] Comment on above: Order Comment: 157 Performed By: #### L 501.5200, L500.2500 #### [facility] [address] [place], [address] CA,Total 8.7 mg/dL Normal 8.5-10.1 [facility] Comment on above: Order Comment: 157 Performed By: #### L 501.5200, L500.2500 #### [facility] [address] [place], [address] Chloride [Moles/Vol] 105 mmol/L Normal 98-107 [facility] Comment on above: Order Comment: 157 Performed By: #### L 501.5200, L500.2500 #### [facility] [address] [place], [address] CO2 [Moles/Vol] 30.0 mmol/L Normal 21.0-32.0 [facility] Comment on above: Order Comment: 157 Performed By: #### L 501.5200, L500.2500 #### [facility] [address] [place], [address] Creatinine [Mass/Vol] 1.06 mg/dL High 0.55-1.02 [facility] Comment on above: Order Comment: 157 Result Comment: The validity of the calculated GFR GFRAA in patients over 70 years has not been determined. Clinical correlation is essential. Performed By: #### L 501.5200, L500.2500 #### [facility] [address] [place], [address] EST GFR - AA 64 mL/min Normal >60 [facility] Comment on above: Order Comment: 157 Result Comment: Afri can Filipino GFR Calc Performed By: #### L 501.5200, L500.2500 #### [facility] [address] [place], [address] GAP 5 Normal 5-15 [facility] Comment on above: Order Comment: 157 Performed By: #### L 501.5200, L500.2500 #### [facility] [address] [place], [address] GFR/1.73 sq M.predicted among non-blacks MDRD (S/P/Bld) [Vol rate/Area] 53 mL/min/{1.73_m2} Low >60 [facility] Comment on above: Order Comment: 157 Result Comment: Non- GFR Calc Performed By: #### L 501.5200, L500.2500 #### [facility] [address] [place], [address] Glucose [Mass/Vol] 119 mg/dL High 74-106 [facility] Comment on above: Order Comment: 157 Result Comment: Fast ing Glucose result from 100 to 125 mg/dL suggests IMPAIRED HOMEOSTASIS per A.D.A. criteria. Performed By: #### L 501.5200, L500.2500 #### [facility] [address] [place], [address] Potassium [Moles/Vol] 3.6 mmol/L Normal 3.5-5.1 [facility] Comment on above: Order Comment: 157 Performed By: #### L 501.5200, L500.2500 #### [facility] [address] [place], [address] Sodium [Moles/Vol] 140 mmol/L Normal 136-145 [facility] Comment on above: Order Comment: 157 Performed By: #### L 501.5200, L500.2500 #### [facility] [address] [place], [address] Urea nitrogen [Mass/Vol] 33 mg/dL High 7-18 [facility] Comment on above: Order Comment: 157 Performed By: #### L 501.5200, L500.2500 #### [facility] [address] [place], [address] Magnesiumon 05-15-2024 Magnesium [Mass/Vol] 2.1 mg/dL Normal 1.6-2.6 [facility] Comment on above: Order Comment: 157 Performed By: #### L 501.5200, L500.2500 #### [facility] [address] [place], [address] Basic Metabolic Profile (BMP )on 05-01-2024 BUN/CRE 21.4 RATIO High 10-20 [facility] Comment on above: Order Comment: 157 Performed By: #### M 100.2200, L400.0001 #### [facility] [address] [place], [address] CA,Total 9.2 mg/dL Normal 8.5-10.1 [facility] Comment on above: Order Comment: 157 Performed By: #### M 100.2200, L400.0001 #### [facility] [address] [place], [address] Chloride [Moles/Vol] 106 mmol/L Normal 98-107 [facility] Comment on above: Order Comment: 157 Performed By: #### M 100.2200, L400.0001 #### [facility] [address] [place], [address] CO2 [Moles/Vol] 27.0 mmol/L Normal 21.0-32.0 [facility] Comment on above: Order Comment: 157 Performed By: #### M 100.2200, L400.0001 #### [facility] [address] [place], [address] Creatinine [Mass/Vol] 1.26 mg/dL High 0.55-1.02 [facility] Comment on above: Order Comment: 157 Result Comment: The validity of the calculated GFR GFRAA in patients over 70 years has not been determined. Clinical correlation is essential. Performed By: #### M 100.2200, L400.0001 #### [facility] [address] [place], [address] EST GFR - AA 53 mL/min Low >60 [facility] Comment on above: Order Comment: 157 Result Comment: Afri can Filipino GFR Calc Performed By: #### M 100.2200, L400.0001 #### [facility] [address] [place], [address] GAP 7 Normal 5-15 [facility] Comment on above: Order Comment: 157 Performed By: #### M 100.2200, L400.0001 #### [facility] [address] [place], [address] GFR/1.73 sq M.predicted among non-blacks MDRD (S/P/Bld) [Vol rate/Area] 43 mL/min/{1.73_m2} Low >60 [facility] Comment on above: Order Comment: 157 Result Comment: Non- GFR Calc Performed By: #### M 100.2200, L400.0001 #### [facility] [address] [place], [address] Glucose [Mass/Vol] 126 mg/dL High 74-106 [facility] Comment on above: Order Comment: 157 Result Comment: Fast ing Glucose result greater than or equal to 126 mg/dL suggests DIABETES MELLITUS per A.D.A. criteria. Performed By: #### M 100.2200, L400.0001 #### [facility] [address] [place], [address] Potassium [Moles/Vol] 4.3 mmol/L Normal 3.5-5.1 [facility] Comment on above: Order Comment: 157 Performed By: #### M 100.2200, L400.0001 #### [facility] [address] [place], [address] Sodium [Moles/Vol] 140 mmol/L Normal 136-145 [facility] Comment on above: Order Comment: 157 Performed By: #### M 100.2200, L400.0001 #### [facility] [address] [place], [address] Urea nitrogen [Mass/Vol] 27 mg/dL High 01-03 [facility] Comment on above: Order Comment: 157 Performed By: #### M 100.2200, L400.0001 #### [facility] [address] [place], [address] Magnesiumon 05-01-2024 Magnesium [Mass/Vol] 2.1 mg/dL Normal 1.6-2.6 [facility] Comment on above: Order Comment: 157 Performed By: #### M 100.2200, L400.0001 #### [facility] [address] [place], [address] Basic Metabolic Profile (BMP )on 04-17-2024 BUN/CRE 20.4 RATIO High 04-07 [facility] Comment on above: Order Comment: CLEAN CATCH Performed By: #### M 100.2200, L400.0001 #### [facility] [address] [place], [address] CA,Total 8.6 mg/dL Normal 8.5-10.1 [facility] Comment on above: Order Comment: CLEAN CATCH Performed By: #### M 100.2200, L400.0001 #### [facility] [address] [place], [address] Chloride [Moles/Vol] 105 mmol/L Normal 98-107 [facility] Comment on above: Order Comment: CLEAN CATCH Performed By: #### M 100.2200, L400.0001 #### [facility] [address] [place], [address] CO2 [Moles/Vol] 31.0 mmol/L Normal 21.0-32.0 [facility] Comment on above: Order Comment: CLEAN CATCH Performed By: #### M 100.2200, L400.0001 #### [facility] [address] [place], [address] Creatinine [Mass/Vol] 1.03 mg/dL High 0.55-1.02 [facility] Comment on above: Order Comment: CLEAN CATCH Result Comment: The validity of the calculated GFR GFRAA in patients over 70 years has not been determined. Clinical correlation is essential. Performed By: #### M 100.2200, L400.0001 #### [facility] [address] [place], [address] EST GFR - AA 66 mL/min Normal >60 [facility] Comment on above: Order Comment: CLEAN CATCH Result Comment: Afri can Filipino GFR Calc Performed By: #### M 100.2200, L400.0001 #### [facility] [address] [place], [address] GAP 3 Low 5-15 [facility] Comment on above: Order Comment: CLEAN CATCH Performed By: #### M 100.2200, L400.0001 #### [facility] [address] [place], [address] GFR/1.73 sq M.predicted among non-blacks MDRD (S/P/Bld) [Vol rate/Area] 55 mL/min/{1.73_m2} Low >60 [facility] Comment on above: Order Comment: CLEAN CATCH Result Comment: Non- GFR Calc Performed By: #### M 100.2200, L400.0001 #### [facility] [address] [place], [address] Glucose [Mass/Vol] 172 mg/dL High 74-106 [facility] Comment on above: Order Comment: CLEAN CATCH Result Comment: Fast ing Glucose result greater than or equal to 126 mg/dL suggests DIABETES MELLITUS per A.D.A. criteria. Performed By: #### M 100.2200, L400.0001 #### [facility] [address] [place], [address] Potassium [Moles/Vol] 3.6 mmol/L Normal 3.5-5.1 [facility] Comment on above: Order Comment: CLEAN CATCH Performed By: #### M 100.2200, [id number] #### [facility] [address] [place], [address] Sodium [Moles/Vol] 140 mmol/L Normal 136-145 [facility] Comment on above: Order Comment: CLEAN CATCH Performed By: #### M 100.2200, L400.0001 #### [facility] [address] [place], [address] Urea nitrogen [Mass/Vol] 21 mg/dL High 7-18 [facility] Comment on above: Order Comment: CLEAN CATCH Performed By: #### M 100.2200, [id number] #### [facility] [address] [place], [address] Magnesiumon 04-17-2024 Magnesium [Mass/Vol] 2.3 mg/dL Normal 1.6-2.6 [facility] Comment on above: Performed By: #### L 500.2500, L501.5200 #### [facility] [address] [place], [address] L3300.0940on 04-06-2024 VIT D,25 HYDROX Normal [facility] Comment on above: Order Comment: 157 Result Comment: TEST RESULTS LIMITS Vitamin D, 25-Hydroxy 32.0 ng/mL 30.0-100.0 Vitamin D deficiency has been defined by the [place] [employer] and an Endocrine Society practice guideline as a level of serum 25-OH vitamin D less than 20 ng/mL (1,2). The Endocrine Society went on to further define vitamin D insufficiency as a level between 21 and 29 ng/mL (2). 1. IOM ([place] [employer]). 2010. Dietary reference intakes for calcium and D. [place]: The National Academies Press. 2. Josias MF, Eddie GAUTAM, Patrick RODRIGUEZ, et al. Evaluation, treatment, and prevention of vitamin D deficiency: an Endocrine Society clinical practice guideline. JCEM. 2010; 96(7):1911-30. TESTING PERFORMED AT [facility]. ORIGINAL REPORT ON FILE IN LAB CONTAINS ADDITIONAL TEST SITE INFORMATION. Performed By: #### L 501.5200, L500.2500 #### [facility] [address] [place], [place], [address] Basic Metabolic Profile (BMP )on 04-04-2024 BUN/CRE 23.3 RATIO High 04-07 [facility] Comment on above: Order Comment: CLEAN CATCH Performed By: #### M 100.2200, L400.0001 #### [facility] [address] [place], [address] CA,Total 9.4 mg/dL Normal 8.5-10.1 [facility] Comment on above: Order Comment: CLEAN CATCH Performed By: #### M 100.2200, L400.0001 #### [facility] [address] [place], [address] Chloride [Moles/Vol] 103 mmol/L Normal 98-107 [facility] Comment on above: Order Comment: CLEAN CATCH Performed By: #### M 100.2200, L400.0001 #### [facility] [address] [place], [address] CO2 [Moles/Vol] 33.0 mmol/L High 21.0-32.0 [facility] Comment on above: Order Comment: CLEAN CATCH Performed By: #### M 100.2200, L400.0001 #### [facility] [address] [place], [address] Creatinine [Mass/Vol] 1.20 mg/dL High 0.55-1.02 [facility] Comment on above: Order Comment: CLEAN CATCH Result Comment: The validity of the calculated GFR GFRAA in patients over 70 years has not been determined. Clinical correlation is essential. Performed By: #### M 100.0, L400.0001 #### [facility] [address] [place], [address] EST GFR - AA 56 mL/min Low >60 [facility] Comment on above: Order Comment: CLEAN CATCH Result Comment: Afri can Filipino GFR Calc Performed By: #### M 100.0, L400.0001 #### [facility] [address] [place], [address] GAP 4 Low 5-15 [facility] Comment on above: Order Comment: CLEAN CATCH Performed By: #### M 100.2200, L400.0001 #### [facility] [address] [place], [address] GFR/1.73 sq M.predicted among non-blacks MDRD (S/P/Bld) [Vol rate/Area] 46 mL/min/{1.73_m2} Low >60 [facility] Comment on above: Order Comment: CLEAN CATCH Result Comment: Non- GFR Calc Performed By: #### M 100.2200, L400.0001 #### [facility] [address] [place], [address] Glucose [Mass/Vol] 120 mg/dL High 74-106 [facility] Comment on above: Order Comment: CLEAN CATCH Result Comment: Fast ing Glucose result from 100 to 125 mg/dL suggests IMPAIRED HOMEOSTASIS per A.D.A. criteria. Performed By: #### M 100.2200, [id number] #### [facility] [address] [place], [address] Potassium [Moles/Vol] 4.1 mmol/L Normal 3.5-5.1 [facility] Comment on above: Order Comment: CLEAN CATCH Performed By: #### M 100.2200, L400.0001 #### [facility] [address] [place], [address] Sodium [Moles/Vol] 140 mmol/L Normal 136-145 [facility] Comment on above: Order Comment: CLEAN CATCH Performed By: #### M 100.2200, [id number] #### [facility] [address] [place], [address] Urea nitrogen [Mass/Vol] 28 mg/dL High 7-18 [facility] Comment on above: Order Comment: CLEAN CATCH Performed By: #### M 100.2200, L400.0001 #### [facility] [address] [place], [address] Magnesiumon 04-04-2024 Magnesium [Mass/Vol] 2.1 mg/dL Normal 1.6-2.6 [facility] Comment on above: Order Comment: CLEAN CATCH Performed By: #### M 100.2200, L400.0001 #### [facility] [address] [place], [address] Basic Metabolic Profile (BMP )on 04-03-2024 BUN Normal -18 [facility] Comment on above: Order Comment: CLEAN CATCH Result Comment: UTO TOLD NURSE Performed By: #### M 100.2200, L400.0001 #### [facility] [address] [place], [address] BUN/CRE Normal 10-20 [facility] Comment on above: Order Comment: CLEAN CATCH Result Comment: UTO TOLD NURSE Performed By: #### M 100.2200, L400.0001 #### [facility] [address] [place], [address] CA,Total Normal 8.5-10.1 [facility] Comment on above: Order Comment: CLEAN CATCH Result Comment: UTO TOLD NURSE Performed By: #### M 100.2200, L400.0001 #### [facility] [address] [place], [address] CL Normal 98-107 [facility] Comment on above: Order Comment: CLEAN CATCH Result Comment: UTO TOLD NURSE Performed By: #### M 100.2200, [id number] #### [facility] [address] [place], [address] CO2 Normal 21.0-32.0 [facility] Comment on above: Order Comment: CLEAN CATCH Result Comment: UTO TOLD NURSE Performed By: #### M 100.2200, L400.0001 #### [facility] [address] [place], [address] CREAT,SERUM Normal 0.55-1.02 [facility] Comment on above: Order Comment: CLEAN CATCH Result Comment: UTO TOLD NURSE Performed By: #### M 100.2200, [id number] #### [facility] [address] [place], [address] EST GFR Normal >60 [facility] Comment on above: Order Comment: CLEAN CATCH Result Comment: UTO TOLD NURSE Performed By: #### M 100.2200, [id number] #### [facility] [address] [place], [address] EST GFR - AA Normal >60 [facility] Comment on above: Order Comment: CLEAN CATCH Result Comment: UTO TOLD NURSE Performed By: #### M 100.2200, [id number] #### [facility] [address] [place], [address] GAP Normal 5-15 [facility] Comment on above: Order Comment: CLEAN CATCH Result Comment: UTO TOLD NURSE Performed By: #### M 100.2200, L400.0001 #### [facility] [address] [place], [address] GLU Normal 74-106 [facility] Comment on above: Order Comment: CLEAN CATCH Result Comment: UTO TOLD NURSE Performed By: #### M 100.2200, L400.0001 #### [facility] [address] [place], [address] Potassium Normal 3.5-5.1 [facility] Comment on above: Order Comment: CLEAN CATCH Result Comment: UTO TOLD NURSE Performed By: #### M 100.2200, [id number] #### [facility] [address] [place], [address] Basic Metabolic Profile (BMP) Normal 136-145 [facility] Comment on above: Order Comment: CLEAN CATCH Result Comment: UTO TOLD NURSE Performed By: #### M 100.2200, L400.0001 #### [facility] [address] [place], [address] Hemoglobin A1con 04-01-2024 HbA1c (Bld) [Mass fraction] 6.2 % High 3.8-5.6 [facility] Comment on above: Order Comment: 157 Result Comment: Norm al < 5.7 % Prediabetic 5.7 - 6.4 % Diabetic >or= 6.5 % Please note range changes. Performed By: #### L 501.5200, L500.2500 #### [facility] [address] [place], [address] Thyroid Stim Hormone (TSH)on 04-01-2024 TSH 2.980 uIU/mL Normal 0.358-3.740 [facility] Comment on above: Order Comment: 157 Performed By: #### L 501.5200, L500.2500 #### [facility] [address] [place], [address] Basic Metabolic Profile (BMP )on 03-20-2024 BUN/CRE 20.4 RATIO High 04-07 [facility] Comment on above: Order Comment: CLEAN CATCH Performed By: #### M 100.2200, L400.0001 #### [facility] [address] [place], [address] CA,Total 8.8 mg/dL Normal 8.5-10.1 [facility] Comment on above: Order Comment: CLEAN CATCH Performed By: #### M 100.2200, L400.0001 #### [facility] [address] [place], [address] Chloride [Moles/Vol] 104 mmol/L Normal 98-107 [facility] Comment on above: Order Comment: CLEAN CATCH Performed By: #### M 100.2200, [id number] #### [facility] [address] [place], [address] CO2 [Moles/Vol] 27.0 mmol/L Normal 21.0-32.0 [facility] Comment on above: Order Comment: CLEAN CATCH Performed By: #### M 100.2200, L400.0001 #### [facility] [address] [place], [address] Creatinine [Mass/Vol] 0.98 mg/dL Normal 0.55-1.02 [facility] Comment on above: Order Comment: CLEAN CATCH Result Comment: The validity of the calculated GFR GFRAA in patients over 70 years has not been determined. Clinical correlation is essential. Performed By: #### M 100.2200, [id number] #### [facility] [address] [place], [address] EST GFR - AA 70 mL/min Normal >60 [facility] Comment on above: Order Comment: CLEAN CATCH Result Comment: Afri can Filipino GFR Calc Performed By: #### M 100.2200, [id number] #### [facility] [address] [place], [address] GAP 4 Low 5-15 [facility] Comment on above: Order Comment: CLEAN CATCH Performed By: #### M 100.2200, L400.0001 #### [facility] [address] [place], [address] GFR/1.73 sq M.predicted among non-blacks MDRD (S/P/Bld) [Vol rate/Area] 58 mL/min/{1.73_m2} Low >60 [facility] Comment on above: Order Comment: CLEAN CATCH Result Comment: Non- GFR Calc Performed By: #### M 100.2200, L400.0001 #### [facility] [address] [place], [address] Glucose [Mass/Vol] 102 mg/dL Normal 74-106 [facility] Comment on above: Order Comment: CLEAN CATCH Result Comment: Fast ing Glucose result from 100 to 125 mg/dL suggests IMPAIRED HOMEOSTASIS per A.D.A. criteria. Performed By: #### M 100.2200, [id number] #### [facility] [address] [place], [address] Potassium [Moles/Vol] 4.2 mmol/L Normal 3.5-5.1 [facility] Comment on above: Order Comment: CLEAN CATCH Result Comment: Mode rate Hemolysis, Result may be falsely increased. Performed By: #### M 100.2200, [id number] #### [facility] [address] [place], [address] Sodium [Moles/Vol] 135 mmol/L Low 136-145 [facility] Comment on above: Order Comment: CLEAN CATCH Performed By: #### M 100.2200, [id number] #### [facility] [address] [place], [address] Urea nitrogen [Mass/Vol] 20 mg/dL High 7-18 [facility] Comment on above: Order Comment: CLEAN CATCH Performed By: #### M 100.2200, [id number] #### [facility] [address] [place], [address] Magnesiumon 03-20-2024 Magnesium [Mass/Vol] 2.2 mg/dL Normal 1.6-2.6 [facility] Comment on above: Order Comment: CLEAN CATCH Result Comment: Mode rate Hemolysis, Result may be falsely increased. Performed By: #### M 100.2200, [id number] #### [facility] [address] [place], [address] 36on 02-05-2024 36 Okay, thank you appreciate her letting us know [facility] 36 We had returned mail on patient---I called her to get her new address. She stated that she is in assisted living at [facility] and will not be a patient at our office. She also wanted Dr. Lopez to know that she appreciates everything that he has done for her over the years. [facility] Progress Noteon 01-03-2024 Progress Note error [facility] Progress Noteon 12-29-2023 Progress Note Please schedule AWV. Normal [facility] Progress Note Called patient---moustapha ne number is not working--sent letter by mail. [facility] 36on 10-27-2023 36 Spoke with jaylon Pascual it was a mistake and he did not need anything for the patient. [facility] 36on 10-26-2023 36 As far as I know she still considers us her primary care however she misses a lot of appointments and cancels at other times. [facility] 36 Name of caller: Ankur Valdivia Contact phone number: [phone] Relationship to Patient: [facility] Provider: Dr Lopez Practice: [facility] Chief Complaint/Reason for Call: Ankur Valdivia from [facility] would like to confirm that patient is still being treated at this office. Please advise. Best time of day caller can be reached: any Patient advised that office/PCP has 24-48 business hours to return their call: Yes [facility] Basophil percentageOrdered B y: Melissa Reed on 09-29-2023 Chloride [Moles/Vol] 106 mmol/L 98-107 [facility] Glucose [Mass/Vol] 165 mg/dL 74-106 [facility] Comment on above: Fasting Glucose resu lt greater than or equal to 126 mg/dL suggests DIABETES MELLITUS per A.D.A. criteria. Potassium [Moles/Vol] 3.5 mmol/L 3.5-5.1 [facility] Sodium [Moles/Vol] 135 mmol/L 136-145 [facility] - Chemistry and C hemistry - challengeOrdered By: Melissa Reed on 09-29-2023 CO2 [Moles/Vol] 26.0 mmol/L 21.0-32.0 [facility] Urea nitrogen/Creatinine [Mass ratio] 23.7 mg/mg 10-20 [facility] No Panel InformationOrdered By: Melissa Reed on 09-29-2023 Estimated GFR (MDRD) Amer 57 mL/min >60 [facility] Comment on above: GFR Calc Estimated GFR (MDRD) Non-Af Amer 47 mL/min >60 [facility] Comment on above: Non- GFR Calc Serum or plasma calcium danae urement (mass/volume)Ordered By: Melissa Reed on 09-29-2023 Calcium [Mass/Vol] 8.5 mg/dL 8.5-10.1 [facility] Serum or plasma creatinine m easurement (mass/volume)Ordered By: Melissa Reed on 09-29-2023 Creatinine [Mass/Vol] 1.18 mg/dL 0.55-1.02 [facility] Comment on above: The validity of the calculated GFR & GFRAA in patients over 70 years has not been determined. Clinical correlation is essential. Serum or plasma urea nitroge n measurement (mass/volume)Ordered By: Melissa Reed on 09-29-2023 Urea nitrogen [Mass/Vol] 28 mg/dL 7-18 [facility] Thin prep Papanicolaou smear with manual screeningOrdered By: Melissa Reed on 09-29-2023 Thin prep Papanicolaou smear with manual screening 3 5-15 [facility] Basophil percentageOrdered B y: Melissa Reed on 09-14-2023 Chloride [Moles/Vol] 106 mmol/L 98-107 [facility] Glucose [Mass/Vol] 191 mg/dL 74-106 [facility] Comment on above: Fasting Glucose resu lt greater than or equal to 126 mg/dL suggests DIABETES MELLITUS per A.D.A. criteria. Potassium [Moles/Vol] 3.8 mmol/L 3.5-5.1 [facility] Sodium [Moles/Vol] 138 mmol/L 136-145 [facility] Laboratory - Chemistry and C hemistry - challengeOrdered By: Melissa Reed on 09-14-2023 CO2 [Moles/Vol] 29.0 mmol/L 21.0-32.0 [facility] Urea nitrogen/Creatinine [Mass ratio] 17.8 mg/mg 10-20 [facility] No Panel InformationOrdered By: Melissa Reed on 09-14-2023 Estimated GFR (MDRD) Amer 63 mL/min >60 [facility] Comment on above: GFR Calc Estimated GFR (MDRD) Non-Af Amer 52 mL/min >60 [facility] Comment on above: Non- GFR Calc Serum or plasma calcium danae urement (mass/volume)Ordered By: Melissa Reed on 09-14-2023 Calcium [Mass/Vol] 8.7 mg/dL 8.5-10.1 [facility] Serum or plasma creatinine m easurement (mass/volume)Ordered By: Melissa Reed on 09-14-2023 Creatinine [Mass/Vol] 1.07 mg/dL 0.55-1.02 [facility] Comment on above: The validity of the calculated GFR & GFRAA in patients over 70 years has not been determined. Clinical correlation is essential. Serum or plasma urea nitroge n measurement (mass/volume)Ordered By: Melissa Reed on 09-14-2023 Urea nitrogen [Mass/Vol] 19 mg/dL 7-18 [facility] Thin prep Papanicolaou smear with manual screeningOrdered By: Melisas Reed on 09-14-2023 Thin prep Papanicolaou smear with manual screening 3 5-15 [facility] Basophil percentageOrdered B y: Melissa Reed on 08-31-2023 Chloride [Moles/Vol] 104 mmol/L 98-107 [facility] Glucose [Mass/Vol] 169 mg/dL 74-106 [facility] Comment on above: Fasting Glucose resu lt greater than or equal to 126 mg/dL suggests DIABETES MELLITUS per A.D.A. criteria. Potassium [Moles/Vol] 3.6 mmol/L 3.5-5.1 [facility] Sodium [Moles/Vol] 140 mmol/L 136-145 [facility] Laboratory - Chemistry and C hemistry - challengeOrdered By: Melissa Reed on 08-31-2023 CO2 [Moles/Vol] 30.0 mmol/L 21.0-32.0 [facility] Urea nitrogen/Creatinine [Mass ratio] 20.3 mg/mg 10-20 [facility] No Panel InformationOrdered By: Melissa Reed on 08-31-2023 Estimated GFR (MDRD) Amer 57 mL/min >60 [facility] Comment on above: GFR Calc Estimated GFR (MDRD) Non-Af Amer 47 mL/min >60 [facility] Comment on above: Non- GFR Calc Serum or plasma calcium danae urement (mass/volume)Ordered By: Melissa Reed on 08-31-2023 Calcium [Mass/Vol] 8.9 mg/dL 8.5-10.1 [facility] Serum or plasma creatinine m easurement (mass/volume)Ordered By: Melissa Reed on 08-31-2023 Creatinine [Mass/Vol] 1.18 mg/dL 0.55-1.02 [facility] Comment on above: The validity of the calculated GFR & GFRAA in patients over 70 years has not been determined. Clinical correlation is essential. Serum or plasma urea nitroge n measurement (mass/volume)Ordered By: Melissa Reed on 08-31-2023 Urea nitrogen [Mass/Vol] 24 mg/dL 7-18 [facility] Thin prep Papanicolaou smear with manual screeningOrdered By: Melissa Reed on 08-31-2023 Thin prep Papanicolaou smear with manual screening 6 5-15 [facility] Basophil percentageOrdered B y: Melissa Reed on 08-17-2023 Chloride [Moles/Vol] 105 mmol/L 98-107 [facility] Glucose [Mass/Vol] 192 mg/dL 74-106 [facility] Comment on above: Fasting Glucose resu lt greater than or equal to 126 mg/dL suggests DIABETES MELLITUS per A.D.A. criteria. Potassium [Moles/Vol] 3.8 mmol/L 3.5-5.1 [facility] Sodium [Moles/Vol] 138 mmol/L 136-145 [facility] Laboratory - Chemistry and C hemistry - challengeOrdered By: Melissa Reed on 08-17-2023 CO2 [Moles/Vol] 29.0 mmol/L 21.0-32.0 [facility] Urea nitrogen/Creatinine [Mass ratio] 22.8 mg/mg 10-20 [facility] No Panel InformationOrdered By: Melissa Reed on 08-17-2023 Estimated GFR (MDRD) Amer 59 mL/min >60 [facility] Comment on above: GFR Calc Estimated GFR (MDRD) Non-Af Amer 49 mL/min >60 [facility] Comment on above: Non- GFR Calc Serum or plasma calcium danae urement (mass/volume)Ordered By: Melissa Reed on 08-17-2023 Calcium [Mass/Vol] 8.8 mg/dL 8.5-10.1 [facility] Serum or plasma creatinine m easurement (mass/volume)Ordered By: Melissa Reed on 08-17-2023 Creatinine [Mass/Vol] 1.14 mg/dL 0.55-1.02 [facility] Comment on above: The validity of the calculated GFR & GFRAA in patients over 70 years has not been determined. Clinical correlation is essential. Serum or plasma urea nitroge n measurement (mass/volume)Ordered By: Melissa Reed on 08-17-2023 Urea nitrogen [Mass/Vol] 26 mg/dL 7-18 [facility] Thin prep Papanicolaou smear with manual screeningOrdered By: Melissa Reed on 08-17-2023 Thin prep Papanicolaou smear with manual screening 4 5-15 [facility] Basophil percentageOrdered B y: Melissa Reed on 08-14-2023 Chloride [Moles/Vol] 104 mmol/L 98-107 [facility] Glucose [Mass/Vol] 146 mg/dL 74-106 [facility] Comment on above: Fasting Glucose resu lt greater than or equal to 126 mg/dL suggests DIABETES MELLITUS per A.D.A. criteria. Potassium [Moles/Vol] 3.4 mmol/L 3.5-5.1 [facility] Sodium [Moles/Vol] 138 mmol/L 136-145 [facility] Laboratory - Chemistry and C hemistry - challengeOrdered By: Melissa Reed on 08-14-2023 CO2 [Moles/Vol] 29.0 mmol/L 21.0-32.0 [facility] Urea nitrogen/Creatinine [Mass ratio] 24.8 mg/mg 10-20 [facility] No Panel InformationOrdered By: Melissa Reed on 08-14-2023 Estimated GFR (MDRD) Amer 60 mL/min >60 [facility] Comment on above: GFR Calc Estimated GFR (MDRD) Non-Af Amer 49 mL/min >60 [facility] Comment on above: Non- GFR Calc Serum or plasma calcium danae urement (mass/volume)Ordered By: Melissa Reed on 08-14-2023 Calcium [Mass/Vol] 9.1 mg/dL 8.5-10.1 [facility] Serum or plasma creatinine m easurement (mass/volume)Ordered By: Melissa Reed on 08-14-2023 Creatinine [Mass/Vol] 1.13 mg/dL 0.55-1.02 [facility] Comment on above: The validity of the calculated GFR & GFRAA in patients over 70 years has not been determined. Clinical correlation is essential. Serum or plasma urea nitroge n measurement (mass/volume)Ordered By: Melissa Reed on 08-14-2023 Urea nitrogen [Mass/Vol] 28 mg/dL 7-18 [facility] Thin prep Papanicolaou smear with manual screeningOrdered By: Melissa Reed on 08-14-2023 Thin prep Papanicolaou smear with manual screening 5 5-15 [facility] Basophil percentageOrdered B y: Melissa Reed on 07-31-2023 Chloride [Moles/Vol] 107 mmol/L 98-107 [facility] Glucose [Mass/Vol] 149 mg/dL 74-106 [facility] Comment on above: Fasting Glucose resu lt greater than or equal to 126 mg/dL suggests DIABETES MELLITUS per A.D.A. criteria. Potassium [Moles/Vol] 3.4 mmol/L 3.5-5.1 [facility] Sodium [Moles/Vol] 142 mmol/L 136-145 [facility] Laboratory - Chemistry and C hemistry - challengeOrdered By: Melissa Reed on 07-31-2023 CO2 [Moles/Vol] 30.0 mmol/L 21.0-32.0 [facility] Urea nitrogen/Creatinine [Mass ratio] 21.7 mg/mg 10-20 [facility] No Panel InformationOrdered By: Melissa Reed on 07-31-2023 Estimated GFR (MDRD) Amer 64 mL/min >60 [facility] Comment on above: GFR Calc Estimated GFR (MDRD) Non-Af Amer 53 mL/min >60 [facility] Comment on above: Non- GFR Calc Serum or plasma calcium danae urement (mass/volume)Ordered By: Melissa Reed on 07-31-2023 Calcium [Mass/Vol] 8.7 mg/dL 8.5-10.1 [facility] Serum or plasma creatinine m easurement (mass/volume)Ordered By: Melissa Reed on 07-31-2023 Creatinine [Mass/Vol] 1.06 mg/dL 0.55-1.02 [facility] Comment on above: The validity of the calculated GFR & GFRAA in patients over 70 years has not been determined. Clinical correlation is essential. Serum or plasma urea nitroge n measurement (mass/volume)Ordered By: Melissa Reed on 07-31-2023 Urea nitrogen [Mass/Vol] 23 mg/dL 7-18 [facility] Thin prep Papanicolaou smear with manual screeningOrdered By: Melissa Reed on 07-31-2023 Thin prep Papanicolaou smear with manual screening 5 5-15 [facility] Basophil percentageOrdered B y: Melissa Reed on 07-17-2023 Chloride [Moles/Vol] 106 mmol/L 98-107 [facility] Glucose [Mass/Vol] 141 mg/dL 74-106 [facility] Comment on above: Fasting Glucose resu lt greater than or equal to 126 mg/dL suggests DIABETES MELLITUS per A.D.A. criteria. Potassium [Moles/Vol] 4.0 mmol/L 3.5-5.1 [facility] Comment on above: Moderate Hemolysis, Result may be falsely increased. Sodium [Moles/Vol] 137 mmol/L 136-145 [facility] Laboratory - Chemistry and C hemistry - challengeOrdered By: Melissa Reed on 07-17-2023 CO2 [Moles/Vol] 29.0 mmol/L 21.0-32.0 [facility] Urea nitrogen/Creatinine [Mass ratio] 22.6 mg/mg 10-20 [facility] No Panel InformationOrdered By: Melissa Reed on 07-17-2023 Estimated GFR (MDRD) Amer 58 mL/min >60 [facility] Comment on above: GFR Calc Estimated GFR (MDRD) Non-Af Amer 48 mL/min >60 [facility] Comment on above: Non- GFR Calc Serum or plasma calcium danae urement (mass/volume)Ordered By: Melissa Reed on 07-17-2023 Calcium [Mass/Vol] 9.3 mg/dL 8.5-10.1 [facility] Serum or plasma creatinine m easurement (mass/volume)Ordered By: Melissa Reed on 07-17-2023 Creatinine [Mass/Vol] 1.15 mg/dL 0.55-1.02 [facility] Comment on above: The validity of the calculated GFR & GFRAA in patients over 70 years has not been determined. Clinical correlation is essential. Serum or plasma urea nitroge n measurement (mass/volume)Ordered By: Melissa Reed on 07-17-2023 Urea nitrogen [Mass/Vol] 26 mg/dL 7-18 [facility] Thin prep Papanicolaou smear with manual screeningOrdered By: Melissa Reed on 07-17-2023 Thin prep Papanicolaou smear with manual screening 2 5-15 [facility] Basophil percentageOrdered B y: Melissa Reed on 07-03-2023 Chloride [Moles/Vol] 106 mmol/L 98-107 [facility] Glucose [Mass/Vol] 134 mg/dL 74-106 [facility] Comment on above: Fasting Glucose resu lt greater than or equal to 126 mg/dL suggests DIABETES MELLITUS per A.D.A. criteria. Potassium [Moles/Vol] 4.0 mmol/L 3.5-5.1 [facility] Sodium [Moles/Vol] 140 mmol/L 136-145 [facility] Laboratory - Chemistry and C hemistry - challengeOrdered By: Melissa Reed on 07-03-2023 CO2 [Moles/Vol] 28.0 mmol/L 21.0-32.0 [facility] Urea nitrogen/Creatinine [Mass ratio] 20.5 mg/mg 10-20 [facility] No Panel InformationOrdered By: Melissa Reed on 07-03-2023 Estimated GFR (MDRD) Amer 71 mL/min >60 [facility] Comment on above: GFR Calc Estimated GFR (MDRD) Non-Af Amer 58 mL/min >60 [facility] Comment on above: Non- GFR Calc Serum or plasma calcium danae urement (mass/volume)Ordered By: Melissa Reed on 07-03-2023 Calcium [Mass/Vol] 8.6 mg/dL 8.5-10.1 [facility] Serum or plasma creatinine m easurement (mass/volume)Ordered By: Melissa Reed on 07-03-2023 Creatinine [Mass/Vol] 0.98 mg/dL 0.55-1.02 [facility] Comment on above: The validity of the calculated GFR & GFRAA in patients over 70 years has not been determined. Clinical correlation is essential. Serum or plasma urea nitroge n measurement (mass/volume)Ordered By: Melissa Reed on 07-03-2023 Urea nitrogen [Mass/Vol] 20 mg/dL 7-18 [facility] Thin prep Papanicolaou smear with manual screeningOrdered By: Melissa Reed on 07-03-2023 Thin prep Papanicolaou smear with manual screening 6 5-15 [facility] Culture, urineOrdered By: Sd Reed on 06-23-2023 Bacteria identified Cx Nom (U) ESBL Escherichia coli [facility] Progress Noteon 06-23-2023 Progress Note EMR reviewed. The patient was at [facility] for several weeks after a hospitalization. [facility] called and spoke with a staff member today and the patient was discharged to the [facility] living facility. PMH: RLS, HTN, GI-BLEED, CKD3, DM2, HYPOTHYROID, ANXIETY, DEPRESSION, HYPOKALEMIA, HYPERLIPIDEMIA HTN MEDS: AMLODIPINE 10MG DAILY SHE STATED THE NURSE HAS BEEN CHECKING HER BP'S 3 TIMES DAILY DM MEDS: LANTUS INSULIN 19 UNITS DAILY HUMALOG INSULIN 10 UNITS 3 TIMES DAILY WITH MEALS [id number] ON 03/01/23 THE PATIENT STATED SHE IS [...] IS NOW SEEING THE DOCTOR AT THE [facility]. SDOH COMPLETED. [facility] WILL DISCHARGE THE PATIENT FROM THE [facility] PERSON MGMT. PROGRAM DUE TO PCP CHANGING. Normal [facility] Absolute lymphocyte countOrd ered By: Melissa Reed on 06-20-2023 Lymphocytes Auto (Unsp spec) [#/Vol] 1.72 10*3/uL 0.83-4.51 [facility] Basophil percentageOrdered B y: Melissa Reed on 06-20-2023 Basophils/100 WBC (Bld) 1.0 % 0-1 [facility] Chloride [Moles/Vol] 108 mmol/L 98-107 [facility] Eosinophils/100 WBC (Bld) 7.8 % 0-5 [facility] Glucose [Mass/Vol] 155 mg/dL 74-106 [facility] Comment on above: Fasting Glucose resu lt greater than or equal to 126 mg/dL suggests DIABETES MELLITUS per A.D.A. criteria. Neutrophils (Bld) [#/Vol] 5.3 10*3/uL 2.0-7.7 [facility] Neutrophils/100 WBC (Bld) 61.1 % 47-70 [facility] Potassium [Moles/Vol] 4.0 mmol/L 3.5-5.1 [facility] Sodium [Moles/Vol] 140 mmol/L 136-145 [facility] WBC (Bld) [#/Vol] 8.6 10*3/uL 4.4-11.0 [facility] Blood erythrocytes count (nu mber/volume)Ordered By: Melissa Reed on 06-20-2023 RBC (Bld) [#/Vol] 3.97 10*6/uL 4.2-5.4 [facility] Blood hemoglobin measurement (mass/volume)Ordered By: Melissa Reed on 06-20-2023 Hemoglobin (Bld) [Mass/Vol] 11.0 g/dL 12.0-15.0 [facility] Blood lymphocytes/100 leukoc ytesOrdered By: Melissa Reed on 06-20-2023 Lymphocytes/100 WBC (Bld) 20.0 % 19-41 [facility] Blood monocytes/100 leukocyt esOrdered By: Melissa Reed on 06-20-2023 Monocytes/100 WBC (Bld) 9.9 % 0-10 [facility] Blood platelet mean volumeOr dered By: Melissa Reed on 06-20-2023 Platelet mean volume (Bld) [Entitic vol] 9.9 fL 6.2-12.0 [facility] Determination of erythrocyte mean corpuscular volume (MCV)Ordered By: Melissa Reed on 06-20-2023 MCV (RBC) [Entitic vol] 93.2 fL 81-99 [facility] Hematocrit Auto (Bld) [Volum e fraction]Ordered By: Melissa Reed on 06-20-2023 Hematocrit (Bld) [Volume fraction] 37.0 % 37-47 [facility] Laboratory - Chemistry and C hemistry - challengeOrdered By: Melissa Reed on 06-20-2023 CO2 [Moles/Vol] 30.0 mmol/L 21.0-32.0 [facility] Cobalamin (Vitamin B12) [Mass/Vol] 430 pg/mL 211-911 [facility] Magnesium [Mass/Vol] 2.0 mg/dL 1.6-2.6 [facility] Urea nitrogen/Creatinine [Mass ratio] 19.8 mg/mg 10-20 [facility] Laboratory - Hematology and Cell countsOrdered By: Melissa Reed on 06-20-2023 Erythrocyte distribution width (RBC) [Entitic vol] 48.2 fL 35.1-43.9 [facility] Erythrocyte distribution width (RBC) [Ratio] 14.2 % 11.6-14.6 [facility] Immature granulocytes/100 WBC (Bld) 0.200 % 0.0-0.9 [facility] Comment on above: IG% - Immature Granu locytes (promyelocytes, myelocytes and metamyelocytes) > 1% indicates that a LEFT SHIFT is Present. MCH (RBC) [Entitic mass] 27.7 pg 27.0-32.0 [facility] Nucleated RBC/100 WBC (Bld) [Ratio] 0 % 0-5 [facility] MCHC Auto (RBC) [Mass/Vol]Or dered By: Melissa Reed on 06-20-2023 MCHC (RBC) [Mass/Vol] 29.7 g/dL 32-36 [facility] No Panel InformationOrdered By: Melissa Reed on 06-20-2023 Estimated GFR (MDRD) Amer 72 mL/min >60 [facility] Comment on above: GFR Calc Estimated GFR (MDRD) Non-Af Amer 60 mL/min >60 [facility] Comment on above: Non- GFR Calc Thyroid Stimulating Hormone (TSH) 1.57 uIU/mL 0.358-3.74 [facility] Vitamin D 25-Hydroxy 60.6 ng/mL [facility] Comment on above: Vitamin D 25(OH) Sta tus Range Deficiency <20 ng/mL (50nmol/L) Insufficiency 20 - 30 ng/mL (50 - 75 nmol/L) Sufficiency 30 - 100 ng/mL (75 - 250 nmol/L) Toxicity >100 ng/mL (>250 nmol/L) Platelets bldOrdered By: Lillian Reed on 06-20-2023 Platelets (Bld) [#/Vol] 317 10*3/uL 150-450 [facility] Serum or plasma calcium danae urement (mass/volume)Ordered By: Melissa Reed on 06-20-2023 Calcium [Mass/Vol] 8.8 mg/dL 8.5-10.1 [facility] Serum or plasma creatinine m easurement (mass/volume)Ordered By: Melissa Reed on 06-20-2023 Creatinine [Mass/Vol] 0.96 mg/dL 0.55-1.02 [facility] Comment on above: The validity of the calculated GFR & GFRAA in patients over 70 years has not been determined. Clinical correlation is essential. Serum or plasma urea nitroge n measurement (mass/volume)Ordered By: Melissa Reed on 06-20-2023 Urea nitrogen [Mass/Vol] 19 mg/dL 7-18 [facility] Thin prep Papanicolaou smear with manual screeningOrdered By: Melissa Reed on 06-20-2023 Thin prep Papanicolaou smear with manual screening 2 5-15 [facility] Whole blood hemoglobin A1c/t otal hemoglobin ratio (mass fraction)Ordered By: Melissa Reed on 06-20-2023 HbA1c (Bld) [Mass fraction] 6.4 % 3.8-5.6 [facility] Comment on above: Normal < 5.7 % Predi abetic 5.7 - 6.4 % Diabetic >or= 6.5 % Please note range changes. Progress Noteon 06-07-2023 Progress Note CM called and spoke with a staff member at [facility]. The patient is still at the facility. CM will follow-up with the patient once she is discharged to home. Normal [facility] Culture, urineOrdered By: Anastasia Olvera on 05-10-2023 Bacteria identified Cx Nom (U) Klebsiella pneumoniae sp pneum [facility] Bacteria identified Cx Nom (U) Klebsiella pneumoniae sp pneum [facility] No Panel InformationOrdered By: Lambert Olvera on 05-01-2023 Thyroid Stimulating Hormone (TSH) 1.91 uIU/mL 0.358-3.74 [facility] Progress Noteon 04-06-2023 Progress Note EMR REVIEWED. [...] discharged. RECOMMENDED NEXT STEPS: Transferred to [facility]. Continue close monitoring of BG. Avoid nephrotoxins/NSAIDS/bela inh. Levothroid dose decreased. Apresoline started. PMH: RLS, HTN, GI-BLEED, CKD3, DM2, HYPOTHYROID, ANXIETY, DEPRESSION, HYPOKALEMIA, HYPERLIPIDEMIA FOLLOW-UP APPTS: 04/27/23-FAMILY MEDICINE HTN MEDS: AMLODIPINE 10MG DAILY HYDRALAZINE 25MG THREE TIMES DAILY ?CHECKING BP'S DM MEDS: LANTUS INSULIN 19 UNITS DAILY HUMALOG INSULIN 10 UNITS WITH MEALS [id number] ON 03/01/23 ?MONITORING BLOOD SUGARS CM CALLED AND SPOKE WITH THE PT'S SON-MAXIMINO. HE STATED THE PT. IS CURRENTLY ADMITTED TO [facility]. HE STATED THE PT. WILL PROBABLY BE GOING TO AN ASSISTED LIVING FACILITY WHEN SHE IS DISCHARGED DUE TO THE PT. NOT BEING ABLE TO CARE FOR HERSELF ALONE AT HOME. CM WILL FOLLOW-UP WITH THE PT. ONCE SHE IS DISCHARGED FROM SNF. Normal [facility] Basophil percentageOrdered B y: Lambert Olvera on 04-04-2023 Bilirubin [Mass/Vol] 0.30 mg/dL 0.20-1.00 [facility] Comment on above: For patients on eltr ombopag therapy, use of Dimension [place]rill TBIL is not recommended. Chloride [Moles/Vol] 109 mmol/L 98-107 [facility] Glucose [Mass/Vol] 112 mg/dL 74-106 [facility] Comment on above: Fasting Glucose resu lt from 100 to 125 mg/dL suggests IMPAIRED HOMEOSTASIS per A.D.A. criteria. Potassium [Moles/Vol] 4.2 mmol/L 3.5-5.1 [facility] Protein [Mass/Vol] 6.5 g/dL 6.4-8.2 [facility] Sodium [Moles/Vol] 140 mmol/L 136-145 [facility] WBC (Bld) [#/Vol] 8.5 10*3/uL 4.4-11.0 [facility] Blood erythrocytes count (nu mber/volume)Ordered By: Lambert Olvera on 04-04-2023 RBC (Bld) [#/Vol] 4.34 10*6/uL 4.2-5.4 [facility] Blood hemoglobin measurement (mass/volume)Ordered By: Lambert Olvera on 04-04-2023 Hemoglobin (Bld) [Mass/Vol] 11.9 g/dL 12.0-15.0 [facility] Blood platelet mean volumeOr dered By: Lambert Olvera on 04-04-2023 Platelet mean volume (Bld) [Entitic vol] 10.4 fL 6.2-12.0 [facility] Determination of erythrocyte mean corpuscular volume (MCV)Ordered By: Lambert Olvera on 04-04-2023 MCV (RBC) [Entitic vol] 91.9 fL 81-99 [facility] Hematocrit Auto (Bld) [Volum e fraction]Ordered By: Lambert Olvera on 04-04-2023 Hematocrit (Bld) [Volume fraction] 39.9 % 37-47 [facility] Laboratory - Chemistry and C hemistry - challengeOrdered By: Lambert Olvera on 04-04-2023 ALP [Catalytic activity/Vol] 96 U/L 45-117 [facility] ALT [Catalytic activity/Vol] 28 U/L 13-56 [facility] CO2 [Moles/Vol] 27.0 mmol/L 21.0-32.0 [facility] Globulin (S) [Mass/Vol] 3.7 g/dL 2.2-4.2 [facility] Urea nitrogen/Creatinine [Mass ratio] 21.8 mg/mg 10-20 [facility] Laboratory - Hematology and Cell countsOrdered By: Lambert Olvera on 04-04-2023 Erythrocyte distribution width (RBC) [Entitic vol] 47.0 fL 35.1-43.9 [facility] Erythrocyte distribution width (RBC) [Ratio] 13.9 % 11.6-14.6 [facility] MCH (RBC) [Entitic mass] 27.4 pg 27.0-32.0 [facility] MCHC Auto (RBC) [Mass/Vol]Or dered By: Lambert Olvera on 04-04-2023 MCHC (RBC) [Mass/Vol] 29.8 g/dL 32-36 [facility] No Panel InformationOrdered By: Lambert Olvera on 04-04-2023 Estimated GFR (MDRD) Amer 76 mL/min >60 [facility] Comment on above: GFR Calc Estimated GFR (MDRD) Non-Af Amer 63 mL/min >60 [facility] Comment on above: Non- GFR Calc Platelets bldOrdered By: Lisa Olvera on 04-04-2023 Platelets (Bld) [#/Vol] 315 10*3/uL 150-450 [facility] Serum or plasma albumin danae urement (mass/volume)Ordered By: Lambert Olvera on 04-04-2023 Albumin [Mass/Vol] 2.8 g/dL 3.2-5.0 [facility] Serum or plasma albumin/glob ulin mass ratioOrdered By: Lambert Olvera on 04-04-2023 Albumin/Globulin [Mass ratio] 0.8 {ratio} 0.9-2.4 [facility] Serum or plasma calcium danae urement (mass/volume)Ordered By: Lambert Olvera on 04-04-2023 Calcium [Mass/Vol] 8.6 mg/dL 8.5-10.1 [facility] Serum or plasma creatinine m easurement (mass/volume)Ordered By: Lambert Olvera on 04-04-2023 Creatinine [Mass/Vol] 0.92 mg/dL 0.55-1.02 [facility] Comment on above: The validity of the calculated GFR & GFRAA in patients over 70 years has not been determined. Clinical correlation is essential. Serum or plasma urea nitroge n measurement (mass/volume)Ordered By: Lambert Olvera on 04-04-2023 Urea nitrogen [Mass/Vol] 20 mg/dL 7-18 [facility] Thin prep Papanicolaou smear with manual screeningOrdered By: Lambert Olvera on 04-04-2023 Thin prep Papanicolaou smear with manual screening 20 U/L 15- [facility] Thin prep Papanicolaou smear with manual screening 4 5-15 [facility] Progress Noteon 03-31-2023 Progress Note THE PT. WAS IDENTIFI ED BY [facility]ITION[facility] RN FROM THE [facility] DAILY CENSUS REPORT. CM WILL CONTINUE TO FOLLOW-UP WITH THE PT. FOR ANY ONGOING CM NEEDS. Normal [facility] Basophil percentageOrdered B y: Lambert Olvera on 03-20-2023 Chloride [Moles/Vol] 105 mmol/L 98-107 [facility] Glucose [Mass/Vol] 103 mg/dL 74-106 [facility] Comment on above: Fasting Glucose resu lt from 100 to 125 mg/dL suggests IMPAIRED HOMEOSTASIS per A.D.A. criteria. Potassium [Moles/Vol] 3.7 mmol/L 3.5-5.1 [facility] Sodium [Moles/Vol] 138 mmol/L 136-145 [facility] WBC (Bld) [#/Vol] 8.0 10*3/uL 4.4-11.0 [facility] Blood erythrocytes count (nu mber/volume)Ordered By: Lambert Olvera on 03-20-2023 RBC (Bld) [#/Vol] 3.75 10*6/uL 4.2-5.4 [facility] Blood hemoglobin measurement (mass/volume)Ordered By: Lambert Olvera on 03-20-2023 Hemoglobin (Bld) [Mass/Vol] 10.3 g/dL 12.0-15.0 [facility] Blood platelet mean volumeOr dered By: Lambert Olvera on 03-20-2023 Platelet mean volume (Bld) [Entitic vol] 10.5 fL 6.2-12.0 [facility] Determination of erythrocyte mean corpuscular volume (MCV)Ordered By: Lambert Olvera on 03-20-2023 MCV (RBC) [Entitic vol] 91.7 fL 81-99 [facility] Hematocrit Auto (Bld) [Volum e fraction]Ordered By: Lambert Olvera on 03-20-2023 Hematocrit (Bld) [Volume fraction] 34.4 % 37-47 [facility] Laboratory - Chemistry and C hemistry - challengeOrdered By: Lambert Olvera on 03-20-2023 CO2 [Moles/Vol] 30.0 mmol/L 21.0-32.0 [facility] Urea nitrogen/Creatinine [Mass ratio] 24.2 mg/mg 10-20 [facility] Laboratory - Hematology and Cell countsOrdered By: Lambert Olvera on 03-20-2023 Erythrocyte distribution width (RBC) [Entitic vol] 45.7 fL 35.1-43.9 [facility] Erythrocyte distribution width (RBC) [Ratio] 13.4 % 11.6-14.6 [facility] MCH (RBC) [Entitic mass] 27.5 pg 27.0-32.0 [facility] MCHC Auto (RBC) [Mass/Vol]Or dered By: Lambert Olvera on 03-20-2023 MCHC (RBC) [Mass/Vol] 29.9 g/dL 32-36 [facility] No Panel InformationOrdered By: Lambert Olvera on 03-20-2023 Estimated GFR (MDRD) Amer 70 mL/min >60 [facility] Comment on above: GFR Calc Estimated GFR (MDRD) Non-Af Amer 57 mL/min >60 [facility] Comment on above: Non- GFR Calc Thyroid Stimulating Hormone (TSH) 0.04 uIU/mL 0.358-3.74 [facility] Platelets bldOrdered By: Lisa Olvera on 03-20-2023 Platelets (Bld) [#/Vol] 333 10*3/uL 150-450 [facility] Serum or plasma calcium danae urement (mass/volume)Ordered By: Lambert Olvera on 03-20-2023 Calcium [Mass/Vol] 8.4 mg/dL 8.5-10.1 [facility] Serum or plasma creatinine m easurement (mass/volume)Ordered By: Lambert Olvera on 03-20-2023 Creatinine [Mass/Vol] 0.99 mg/dL 0.55-1.02 [facility] Comment on above: The validity of the calculated GFR & GFRAA in patients over 70 years has not been determined. Clinical correlation is essential. Serum or plasma urea nitroge n measurement (mass/volume)Ordered By: Lambert Olvera on 03-20-2023 Urea nitrogen [Mass/Vol] 24 mg/dL 7-18 [facility] Thin prep Papanicolaou smear with manual screeningOrdered By: Lambert Olvera on 03-20-2023 Thin prep Papanicolaou smear with manual screening 3 5-15 [facility] Absolute lymphocyte countOrd ered By: Baljit Jaffe on 03-18-2023 Lymphocytes Auto (Unsp spec) [#/Vol] 1.42 10*3/uL 0.83-4.51 [facility] Basophil percentageOrdered B y: Baljit Jaffe on 03-18-2023 Basophils/100 WBC (Bld) 0.6 % 0-1 [facility] Chloride [Moles/Vol] 106 mmol/L 98-107 [facility] Eosinophils/100 WBC (Bld) 5.2 % 0-5 [facility] Glucose [Mass/Vol] 111 mg/dL 74-106 [facility] Comment on above: Fasting Glucose resu lt from 100 to 125 mg/dL suggests IMPAIRED HOMEOSTASIS per A.D.A. criteria. Neutrophils (Bld) [#/Vol] 5.0 10*3/uL 2.0-7.7 [facility] Neutrophils/100 WBC (Bld) 65.0 % 47-70 [facility] Potassium [Moles/Vol] 3.7 mmol/L 3.5-5.1 [facility] Sodium [Moles/Vol] 138 mmol/L 136-145 [facility] WBC (Bld) [#/Vol] 7.8 10*3/uL 4.4-11.0 [facility] Blood erythrocytes count (nu mber/volume)Ordered By: Baljit Jaffe on 03-18-2023 RBC (Bld) [#/Vol] 3.84 10*6/uL 4.2-5.4 [facility] Blood hemoglobin measurement (mass/volume)Ordered By: Baljit Jaffe on 03-18-2023 Hemoglobin (Bld) [Mass/Vol] 10.8 g/dL 12.0-15.0 [facility] Blood lymphocytes/100 leukoc ytesOrdered By: Baljit Jaffe on 03-18-2023 Lymphocytes/100 WBC (Bld) 18.3 % 19-41 [facility] Blood monocytes/100 leukocyt esOrdered By: Baljit Jaffe on 03-18-2023 Monocytes/100 WBC (Bld) 10.6 % 0-10 [facility] Blood platelet mean volumeOr dered By: Baljit Jaffe on 03-18-2023 Platelet mean volume (Bld) [Entitic vol] 9.9 fL 6.2-12.0 [facility] Determination of erythrocyte mean corpuscular volume (MCV)Ordered By: Baljit Jaffe on 03-18-2023 MCV (RBC) [Entitic vol] 90.6 fL 81-99 [facility] Glucose Glucometer (dC) [M ass/Vol]Ordered By: Baljit Jaffe on 03-18-2023 Glucose [Mass/Vol] 111 mg/dL 74-106 [facility] Comment on above: MANAGEMENT OF PATIEN T CARE PER NURSING PROTOCOL Hematocrit Auto (Bld) [Volum e fraction]Ordered By: Baljit Jaffe on 03-18-2023 Hematocrit (Bld) [Volume fraction] 34.8 % 37-47 [facility] Laboratory - Chemistry and C hemistry - challengeOrdered By: Baljit Jaffe on 03-18-2023 CO2 [Moles/Vol] 27.0 mmol/L 21.0-32.0 [facility] Urea nitrogen/Creatinine [Mass ratio] 30.8 mg/mg 10-20 [facility] Laboratory - Hematology and Cell countsOrdered By: Baljit Jaffe on 03-18-2023 Erythrocyte distribution width (RBC) [Entitic vol] 44.9 fL 35.1-43.9 [facility] Erythrocyte distribution width (RBC) [Ratio] 13.4 % 11.6-14.6 [facility] Immature granulocytes/100 WBC (Bld) 0.300 % 0.0-0.9 [facility] Comment on above: IG% - Immature Granu locytes (promyelocytes, myelocytes and metamyelocytes) > 1% indicates that a LEFT SHIFT is Present. MCH (RBC) [Entitic mass] 28.1 pg 27.0-32.0 [facility] Nucleated RBC/100 WBC (Bld) [Ratio] 0 % 0-5 [facility] MCHC Auto (RBC) [Mass/Vol]Or dered By: Baljit Jaffe on 03-18-2023 MCHC (RBC) [Mass/Vol] 31.0 g/dL 32-36 [facility] No Panel InformationOrdered By: Baljit Jaffe on 03-18-2023 Estimated Creatinine Clearance Calc 41.46 ml/min [facility] Estimated GFR (MDRD) Amer 64 mL/min >60 [facility] Comment on above: GFR Calc Estimated GFR (MDRD) Non-Af Amer 53 mL/min >60 [facility] Comment on above: Non- GFR Calc Platelets bldOrdered By: Baljit Jaffe on 03-18-2023 Platelets (Bld) [#/Vol] 333 10*3/uL 150-450 [facility] Serum or plasma calcium danae urement (mass/volume)Ordered By: Baljit Jaffe on 03-18-2023 Calcium [Mass/Vol] 8.4 mg/dL 8.5-10.1 [facility] Serum or plasma creatinine m easurement (mass/volume)Ordered By: Baljit Jaffe on 03-18-2023 Creatinine [Mass/Vol] 1.07 mg/dL 0.55-1.02 [facility] Comment on above: The validity of the calculated GFR & GFRAA in patients over 70 years has not been determined. Clinical correlation is essential. Serum or plasma urea nitroge n measurement (mass/volume)Ordered By: Baljit Jaffe on 03-18-2023 Urea nitrogen [Mass/Vol] 33 mg/dL 7-18 [facility] Thin prep Papanicolaou smear with manual screeningOrdered By: Baljit Jaffe on 03-18-2023 Thin prep Papanicolaou smear with manual screening 5 5-15 [facility] COVID-19 virus antigen assay Ordered By: Baljit Jaffe on 03-17-2023 SARS-CoV-2 (COVID-19) Ag IA.rapid Ql (Resp) [facility] SARS-CoV-2 (COVID-19) Ag IA.rapid Ql (Resp) [facility] Gram stain for investigation of transfusion reactionOrdered By: Baljit Jaffe on 03-17-2023 Microscopic observation Gram stain Nom (Unsp spec) [facility] Microscopic observation Gram stain Nom (Unsp spec) [facility] Routine wound cultureOrdered By: Baljit Jaffe on 03-17-2023 Bacteria identified Cx Nom (Wound) No growth aerobically. [facility] Bacteria identified Cx Nom (Wound) No growth aerobically. [facility] 36on 03-15-2023 36 Sent via WILEX. Normal [facility] 36 Name of caller: Ricco noel [facility] Contact phone number: [phone] Relationship to Patient: [facility] Provider: Dr Lopez Practice: [facility] location Chief Complaint/Reason for Call: 03/15/23 Margaret calling to ask the office /provider about her Immunization Records she stated pt received Pneumococcal 23 on 04/10/21 but she is asking if anymore was given to pt if so, she will need those records faxed over to [phone] pls advise Best time of day caller can be reached: AM Patient advised that office/PCP has 24-48 business hours to return their call: Yes Normal [facility]EC[facility]Don [facility]2023 [facility] Patient Name: RADHA SANDOVAL Date of : 1945 [facility] Bacteria identified Cx Nom ( U)Ordered By: Kalpesh Dillon on 03-03-2023 Interpretation and review of laboratory results [facility] Discharge med list transmitted to [facility] via Exp[employer]ly per TCC request. [facility] Spoke with pt at bedside regarding POA, pt states she is not interested at this time to complete it and would consider completing at [facility] - did call Rafaela at [facility] to update her as well. Normal [facility] Transportation arran rosemary through [facility] by cot set for 10 am machine pecan picker. Will notify RN and TCC of this in rounds. Notified patient's son via phone of transportation time. SW remains available if any other needs concerns arise. Normal [facility] You are not granted access to view this sensitive note. Normal [facility] Insurance auth obtai shaina for [facility] long-term facility, updated Dr Finch notified via [employer]. Normal [facility] CBC W Auto Differential pane l (Bld)on 03-03-2023 Basophils (Bld) [#/Vol] 0.1 10*3/uL 0.0 - 0.2 10*3/uL [facility] Basophils/100 WBC (Bld) 0.6 % 0.0 - 2.0 % [facility] Eosinophils (Bld) [#/Vol] 0.4 10*3/uL 0.0 - 0.5 10*3/uL [facility] Eosinophils/100 WBC (Bld) 4.4 % 1.0 - 6.0 % [facility] Erythrocyte distribution width (RBC) [Ratio] 13.4 % 11.5 - 14.5 % [facility] Hematocrit (Bld) [Volume fraction] 35.5 % 35.0 - 47.0 % [facility] Hemoglobin (Bld) [Mass/Vol] 11.6 g/dL Low 11.7 - 16.0 g/dL [facility] Interpretation and review of laboratory results Abnormal [facility] Lymphocytes (Bld) [#/Vol] 2.0 10*3/uL 1.0 - 4.3 10*3/uL [facility] Lymphocytes/100 WBC (Bld) 22.6 % 20.0 - 40.0 % [facility] MCH (RBC) [Entitic mass] 27.7 pg 26.0 - 34.[address] [facility] MCHC (RBC) [Mass/Vol] 32.7 % 32.0 - 36.0 % [facility] MCV (RBC) [Entitic vol] 84.8 fL 80.0 - 98.[address] [facility] Monocytes (Bld) [#/Vol] 1.0 10*3/uL High 0.0 - 0.8 10*3/uL [facility] Monocytes/100 WBC (Bld) 11.6 % High 2.0 - 10.0 % [facility] Neutrophils (Bld) [#/Vol] 5.4 10*3/uL 1.8 - 7.0 10*3/uL [facility] Neutrophils/100 WBC (Bld) 60.8 % 40.0 - 80.0 % [facility] Nucleated RBC/100 WBC (Bld) [Ratio] 0.0 % [facility] Platelet mean volume (Bld) [Entitic vol] 7.9 fL 7.4 - 12.[address] [facility] Platelets (Bld) [#/Vol] 257 10*3/uL 140 - 440 10*3/uL [facility] RBC (Bld) [#/Vol] 4.19 10*6/uL 3.8 - 5.20 10*6/uL [facility] WBC (Bld) [#/Vol] 9.0 10*3/uL 3.6 - 10.7 10*3/uL [facility] CBC WITH AUTO DIFFERENTIALon 03-03-2023 Basophils (Bld) [#/Vol] 0.1 10*3/uL Normal 0.0-0.2 [facility] Comment on above: Performed By: #### L [id number] ####Smelting Engineer: MARTIN REYES ([id number])[facility] ([facility])[address] [place] [address] Basophils/100 WBC (Bld) 0.6 % Normal 0.0-2.0 [facility] Comment on above: Performed By: #### L [id number] ####Smelting Engineer: MARTIN REYES ([id number])[facility] ([facility])[address] Eosinophils (Bld) [#/Vol] 0.4 10*3/uL Normal 0.0-0.5 [facility] Comment on above: Performed By: #### L [id number] ####Smelting Engineer: MARTIN REYES ([id number])[facility] [place] ([facility])[address] Eosinophils/100 WBC (Bld) 4.4 % Normal 1.0-6.0 [facility] Comment on above: Performed By: #### L [id number] ####Smelting Engineer: MARTIN REYES ([id number])[facility] [place] ([facility])[address] [place] [address] Erythrocyte distribution width (RBC) [Ratio] 13.4 % Normal 11.5-14.5 [facility] Comment on above: Performed By: #### L [id number] ####Smelting Engineer: MARTIN REYES ([id number])[facility] [place] ([facility])[address] [place] [address] ERYTHROCYTE MEAN CORPUSCULAR HEMOGLOBIN CONCENTRATION (G/DL) BY AUTOMATED 32.7 % Normal 32.0-36.0 [facility] Comment on above: Performed By: #### L [id number] ####Smelting Engineer: MARTIN REYES ([id number])[facility] ([facility])[address] [place] [address] Hematocrit (Bld) [Volume fraction] 35.5 % Normal 35.0-47.0 [facility] Comment on above: Performed By: #### L [id number] ####Smelting Engineer: MARTIN REYES ([id number])[facility] [place] ([facility])[address] [place] [address] Hemoglobin (Bld) [Mass/Vol] 11.6 g/dL Low 11.7-16.0 [facility] Comment on above: Performed By: #### L [id number] ####Smelting Engineer: MARTIN REYES ([id number])[facility] [place] ([facility])[address] Lymphocytes (Bld) [#/Vol] 2.0 10*3/uL Normal 1.0-4.3 [facility] Comment on above: Performed By: #### L [id number] ####Smelting Engineer: MARTIN REYES ([id number])[facility] ([facility])[address] Lymphocytes/100 WBC (Bld) 22.6 % Normal 20.0-40.0 [facility] Comment on above: Performed By: #### L [id number] ####Smelting Engineer: MARTIN REYES ([id number])[facility] ([facility])[address] MCH (RBC) [Entitic mass] 27.7 pg Normal 26.0-34.0 [facility] Comment on above: Performed By: #### L [id number] ####Smelting Engineer: MARTIN REYES ([id number])[facility] ([facility])[address] MCV (RBC) [Entitic vol] 84.8 fL Normal 80.0-98.0 [facility] Comment on above: Performed By: #### L [id number] ####Smelting Engineer: MARTIN REYES ([id number])[facility] ([facility])[address] [place] [address] [place] Monocytes (Bld) [#/Vol] 1.0 10*3/uL High 0.0-0.8 [facility] Comment on above: Performed By: #### L [id number] ####Smelting Engineer: MARTIN REYES ([id number])[facility] ([facility])[address] [place] [address] [place] Monocytes/100 WBC (Bld) 11.6 % High 2.0-10.0 [facility] Comment on above: Performed By: #### L [id number] ####Smelting Engineer: MARTIN FLEMINGCER ([id number])[facility] [place] ([facility])[address] Neutrophils (Bld) [#/Vol] 5.4 10*3/uL Normal 1.8-7.0 [facility] Comment on above: Performed By: #### L [id number] ####Smelting Engineer: MARTIN ERIC ([id number])[facility] [place] ([facility])[address] Neutrophils/100 WBC (Bld) 60.8 % Normal 40.0-80.0 [facility] Comment on above: Performed By: #### L [id number] ####Smelting Engineer: MARTIN ERIC ([id number])[facility] [place] ([facility])[address] NRBC (PER 100 WBCS) BY AUTOMATED COUNT 0.0 /100 WBCs Normal 0.0-2.0 [facility] Comment on above: Performed By: #### L [id number] ####Smelting Engineer: MARTIN HUANateJOSE R ([id number])[facility] [place] ([facility])[address] Platelet mean volume (Bld) [Entitic vol] 7.9 fL Normal 7.4-12.4 [facility] Comment on above: Performed By: #### L [id number] ####Smelting Engineer: MARTIN AMBROSEJOSE R ([id number])[facility] [place] ([facility])[address] [place] [address] [place] PLATELETS (10*3/UL) IN BLOOD AUTOMATED COUNT 257 10*3/uL Normal 140-440 [facility] Comment on above: Performed By: #### L [id number] ####Smelting Engineer: MARTIN AMBROSEJOSE R ([id number])[facility] [place] ([facility])[address] [place] [address] [place] RBC (Bld) [#/Vol] 4.19 10*6/uL Normal 3.8-5.20 [facility] Comment on above: Performed By: #### L [id number] ####Smelting Engineer: MARTIN REYES ([id number])[facility]BBRAINN ([facility])[address] WBC (Bld) [#/Vol] 9.0 10*3/uL Normal 3.6-10.7 [facility] Comment on above: Performed By: #### L [id number] ####Smelting Engineer: MARTIN REYES ([id number])[facility] [place] ([facility])[address] COMPREHENSIVE METABOLIC PANE Real 03-03-2023 Albumin [Mass/Vol] 3.2 g/dL Low 3.5-5.0 [facility] Comment on above: Performed By: #### L [id number] ####Smelting Engineer: MARTIN REYES ([id number])[facility]ITAL[facility] ([facility])[address] ALP [Catalytic activity/Vol] 94 U/L Normal 38-126 [facility] Comment on above: Performed By: #### L [id number] ####Smelting Engineer: MARTIN REYES ([id number])[facility]ITAL[facility] ([facility])[address] ALT [Catalytic activity/Vol] 12 U/L Normal 0-34 [facility] Comment on above: Performed By: #### L [id number] ####Smelting Engineer: MARTIN REYES ([id number])[facility] ([facility])[address] Anion gap [Moles/Vol] 2 mmol/L Low 3-13 [facility] Comment on above: Performed By: #### L [id number] ####Smelting Engineer: MARTIN REYES ([id number])[facility] ([facility])[address] AST [Catalytic activity/Vol] 34 U/L Normal 15-46 [facility] Comment on above: Performed By: #### L [id number] ####Smelting Engineer: MARTIN REYES ([id number])[facility] ([facility])[address] Bilirubin [Mass/Vol] 0.3 mg/dL Normal 0.2-1.3 [facility] Comment on above: Performed By: #### L [id number] ####Smelting Engineer: MARTIN REYES ([id number])[facility] [place] ([facility])[address] Calcium [Mass/Vol] 8.1 mg/dL Low 8.4-10.4 [facility] Comment on above: Performed By: #### L [id number] ####Smelting Engineer: MARTIN REYES ([id number])[facility] [place] ([facility])[address] Chloride [Moles/Vol] 102 mmol/L Normal 98-107 [facility] Comment on above: Performed By: #### L [id number] ####Smelting Engineer: MARTIN REYES ([id number])[facility] [place] ([facility])[address] CO2 [Moles/Vol] 30 mmol/L Normal 22-30 [facility] Comment on above: Performed By: #### L [id number] ####Smelting Engineer: MARTIN REYES ([id number])[facility] [place] ([facility])[address] Creatinine [Mass/Vol] 0.82 mg/dL Normal 0.52-1.04 [facility] Comment on above: Performed By: #### L [id number] ####Smelting Engineer: MARTIN REYES ([id number])[facility] [place] ([facility])[address] GLOMERULAR FILTRATION RATE ML/MIN/1.73 SQ M.PREDICTED 72.9 mL/min/1.73m*2 Normal >60.0 [facility] Comment on above: Result Comment: Calc ulation based on the Chronic Kidney Disease Epidemiology Collaboration (CKD-EPI) equation refit without adjustment for race Performed By: #### L [id number] ####Smelting Engineer: MARTIN REYES ([id number])[facility]ITAL[facility] ([facility])[address] Glucose [Mass/Vol] 125 mg/dL High 70-100 [facility] Comment on above: Performed By: #### L [id number] ####Smelting Engineer: MARTIN REYES ([id number])[facility] ([facility])[address] Potassium [Moles/Vol] 3.7 mmol/L Normal 3.5-5.1 [facility] Comment on above: Performed By: #### L [id number] ####Smelting Engineer: MARTIN REYES ([id number])[facility] ([facility])[address] Protein [Mass/Vol] 6.2 g/dL Low 6.3-8.2 [facility] Comment on above: Performed By: #### L [id number] ####Smelting Engineer: MARTIN REYES ([id number])[facility] ([facility])[address] Sodium [Moles/Vol] 134 mmol/L Low 135-145 [facility] Comment on above: Performed By: #### L [id number] ####Smelting Engineer: MARTIN ERYES ([id number])[facility] ([facility])[address] Urea nitrogen [Mass/Vol] 15 mg/dL Normal 7-17 [facility] Comment on above: Performed By: #### L [id number] ####Smelting Engineer: MARTIN REYES ([id number])[facility] ([facility])[address] Comprehensive metabolic 1998 panelon 03-03-2023 Albumin [Mass/Vol] 3.2 g/dL Low 3.5 - 5.0 g/dL [facility] ALP [Catalytic activity/Vol] 94 U/L 38 - 126 U/L [facility] ALT [Catalytic activity/Vol] 12 U/L 0 - 34 U/L [facility] Anion gap [Moles/Vol] 2 mmol/L Low 3 - 13 mmol/L [facility] AST [Catalytic activity/Vol] 34 U/L 15 - 46 U/L [facility] Bilirubin [Mass/Vol] 0.3 mg/dL 0.2 - 1 .3 mg/dL [facility] Calcium [Mass/Vol] 8.1 mg/dL Low 8.4 - 10. 4 mg/dL [facility] Chloride [Moles/Vol] 102 mmol/L 98 - 10 7 mmol/L [facility] CO2 [Moles/Vol] 30 mmol/L 22 - 30 mmol/L [facility] Creatinine [Mass/Vol] 0.82 mg/dL 0.52 - 1.04 mg/dL [facility] GFR/1.73 sq M.predicted MDRD (S/P/Bld) [Vol rate/Area] 72.9 mL/min/{1.73_m2} - PINF [facility] Comment on above: Calculation based on the Chronic Kidney Disease Epidemiology Collaboration (CKD-EPI) equation refit without adjustment for race Glucose [Mass/Vol] 125 mg/dL High 70 - 100 mg/dL [facility] Interpretation and review of laboratory results Abnormal [facility] Potassium [Moles/Vol] 3.7 mmol/L 3.5 - 5.1 mmol/L [facility] Protein [Mass/Vol] 6.2 g/dL Low 6.3 - 8.2 g/dL [facility] Sodium [Moles/Vol] 134 mmol/L Low 135 - 145 mmol/L [facility] Urea nitrogen [Mass/Vol] 15 mg/dL 7 - 17 mg/dL [facility] POCT glucose meteron 023 Glucose [Mass/Vol] 215 mg/dL High 70 - 100 mg/dL [facility] Interpretation and review of laboratory results Abnormal [facility]formed by: [facility], [address] [place] [id number] CLIA ID: [id number] [facility] Glucose [Mass/Vol] 158 mg/dL High 70 - 100 mg/dL [facility] Interpretation and review of laboratory results Abnormal [facility] Performed by: [facility], [address] [facility] [address] CLIA ID: [id number] [facility] Progress Noteon 03-03-2023 Progress Note Discharged via ambulance to [facility] Normal [facility] Progress Note Report called to carolina jose at [facility] at [phone] Normal [facility] Urine cultureOrdered By: Sanford Dillon on 03-03-2023 Bacteria identified Cx Nom (U) >100,000 CFU/mL Escherichia coli Abnormal [facility] 25-hydroxyvitamin D3 [Mass/V ol]on 03-02-2023 Therapy is based on measurement of Total 25-OHD with the following classification levels: Less than 20 ng/mL: Indicative of Vit D deficiency 20-30 ng/mL: Suggests Vit D insufficiency Optimal: Greater than or equal to 30 ng/mL Test performed by [employer] Competitive Immunoassay, measuring Total Vitamin D, not individual fractions. [facility] CARECOORDon 03-02-2023 CARECOORD Received a call from Rafaela at [facility], they are able to accept, pt agreeable. 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 Basophils/100 WBC (Bld) 0.7 % 0.0 - 2.0 % [facility] Eosinophils (Bld) [#/Vol] 0.4 10*3/uL 0.0 - 0.5 10*3/uL [facility] Eosinophils/100 WBC (Bld) 3.9 % 1.0 - 6.0 % [facility] Erythrocyte distribution width (RBC) [Ratio] 13.7 % 11.5 - 14.5 % [facility] Hematocrit (Bld) [Volume fraction] 36.1 % 35.0 - 47.0 % [facility] Hemoglobin (Bld) [Mass/Vol] 11.9 g/dL 11.7 - 16.0 g/dL [facility] Interpretation and review of laboratory results Abnormal [facility] Lymphocytes (Bld) [#/Vol] 1.9 10*3/uL 1.0 - 4.3 10*3/uL [facility] Lymphocytes/100 WBC (Bld) 20.1 % 20.0 - 40.0 % [facility] MCH (RBC) [Entitic mass] 28.5 pg 26.0 - 34.0 pg [facility] MCHC (RBC) [Mass/Vol] 32.8 % 32.0 - 36.0 % [facility] MCV (RBC) [Entitic vol] 86.8 fL 80.0 - 98.0 fL [facility] Monocytes (Bld) [#/Vol] 1.1 10*3/uL High 0.0 - 0.8 10*3/uL [facility] Monocytes/100 WBC (Bld) 11.4 % High 2.0 - 10.0 % [facility] Neutrophils (Bld) [#/Vol] 6.1 10*3/uL 1.8 - 7.0 10*3/uL [facility] Neutrophils/100 WBC (Bld) 63.9 % 40.0 - 80.0 % [facility] Nucleated RBC/100 WBC (Bld) [Ratio] 0.1 % [facility] Platelet mean volume (Bld) [Entitic vol] 8.4 fL 7.4 - 12.4 fL [facility] Platelets (Bld) [#/Vol] 252 10*3/uL 140 - 440 10*3/uL [facility] RBC (Bld) [#/Vol] 4.16 10*6/uL 3.8 - 5.20 10*6/uL [facility] WBC (Bld) [#/Vol] 9.5 10*3/uL 3.6 - 10.7 10*3/uL [facility] CBC WITH AUTO DIFFERENTIALon 03-02-2023 Basophils (Bld) [#/Vol] 0.1 10*3/uL Normal 0.0-0.2 [facility] Comment on above: Performed By: #### L [id number] ####Smelting Engineer: MARTIN REYES ([id number])[facility] [place] [address] Basophils/100 WBC (Bld) 0.7 % Normal 0.0-2.0 [facility] Comment on above: Performed By: #### L [id number] ####Smelting Engineer: MARTIN REYES ([phone])[facility] ([facility])[address] Eosinophils (Bld) [#/Vol] 0.4 10*3/uL Normal 0.0-0.5 [facility] Comment on above: Performed By: #### L [id number] ####Smelting Engineer: MARTIN REYES ([phone])[facility] (SB[facility])[address] Eosinophils/100 WBC (Bld) 3.9 % Normal 1.0-6.0 [facility] Comment on above: Performed By: #### L [id number] ####Smelting Engineer: MARTIN REYES ([id number])[facility] (SB[facility])[address] Erythrocyte distribution width (RBC) [Ratio] 13.7 % Normal 11.5-14.5 [facility] Comment on above: Performed By: #### L [id number] ####Smelting Engineer: MARTIN REYES ([id number])[facility] ([facility])[address] [place] [address] ERYTHROCYTE MEAN CORPUSCULAR HEMOGLOBIN CONCENTRATION (G/DL) BY AUTOMATED 32.8 % Normal 32.0-36.0 [facility] Comment on above: Performed By: #### L [id number] ####Smelting Engineer: MARTIN REYES ([id number])[facility] ([facility])[address] [place] [address] Hematocrit (Bld) [Volume fraction] 36.1 % Normal 35.0-47.0 [facility] Comment on above: Performed By: #### L [id number] ####Smelting Engineer: MARTIN REYES ([phone])[facility] [place] ([facility])[address] [place] [address] [place] Hemoglobin (Bld) [Mass/Vol] 11.9 g/dL Normal 11.7-16.0 [facility] Comment on above: Performed By: #### L [id number] ####Smelting Engineer: MARTIN AMBROSEJOSE R ([id number])[facility] [place] ([facility])[address] Lymphocytes (Bld) [#/Vol] 1.9 10*3/uL Normal 1.0-4.3 [facility] Comment on above: Performed By: #### L [id number] ####Smelting Engineer: MARTIN AMBROSEJOSE R ([phone])[facility] (SBHLAB)[address] Lymphocytes/100 WBC (Bld) 20.1 % Normal 20.0-40.0 [facility] Comment on above: Performed By: #### L [id number] ####Smelting Engineer: MARTIN AMBROSEJOSE R ([phone])[facility] [place] ([facility])[address] MCH (RBC) [Entitic mass] 28.5 pg Normal 26.0-34.0 [facility] Comment on above: Performed By: #### L [id number] ####Smelting Engineer: MARTIN AMBROSEJOSE R ([phone])[facility] [place] ([facility])[address] [place] [address] MCV (RBC) [Entitic vol] 86.8 fL Normal 80.0-98.0 [facility] Comment on above: Performed By: #### L [id number] ####Smelting Engineer: MARTIN REYES ([phone])[facility] [place] ([facility])[address] Monocytes (Bld) [#/Vol] 1.1 10*3/uL High 0.0-0.8 [facility] Comment on above: Performed By: #### L [id number] ####Smelting Engineer: MARTIN REYES ([phone])[facility] [place] ([facility])[address] Monocytes/100 WBC (Bld) 11.4 % High 2.0-10.0 [facility] Comment on above: Performed By: #### L [id number] ####Smelting Engineer: MARTIN REYES ([id number])[facility] [place] ([facility])[address] Neutrophils (Bld) [#/Vol] 6.1 10*3/uL Normal 1.8-7.0 [facility] Comment on above: Performed By: #### L [id number] ####Smelting Engineer: MARTIN REYES ([id number])[facility] [place] ([facility])[address] Neutrophils/100 WBC (Bld) 63.9 % Normal 40.0-80.0 [facility] Comment on above: Performed By: #### L [id number] ####Smelting Engineer: MARTIN REYES ([id number])[facility] [place] ([facility])[address] [place] [address] [place] NRBC (PER 100 WBCS) BY AUTOMATED COUNT 0.1 /100 WBCs Normal 0.0-2.0 [facility] Comment on above: Performed By: #### L [id number] ####Smelting Engineer: MARTIN REYES ([id number])[facility] ([facility])[address] Platelet mean volume (Bld) [Entitic vol] 8.4 fL Normal 7.4-12.4 [facility] Comment on above: Performed By: #### L [id number] ####Smelting Engineer: MARTIN REYES ([id number])[facility] [place] ([facility])[address] [place] [address] [place] PLATELETS (10*3/UL) IN BLOOD AUTOMATED COUNT 252 10*3/uL Normal 140-440 [facility] Comment on above: Performed By: #### L [id number] ####Smelting Engineer: MARTIN REYES ([id number])[facility] ([facility])[address] RBC (Bld) [#/Vol] 4.16 10*6/uL Normal 3.8-5.20 [facility] Comment on above: Performed By: #### L [id number] ####Smelting Engineer: MARTIN REYES ([id number])[facility] (SBHLAB)[address] WBC (Bld) [#/Vol] 9.5 10*3/uL Normal 3.6-10.7 [facility] Comment on above: Performed By: #### L [id number] ####Smelting Engineer: MARTIN REYES ([id number])[facility]ITAL[facility] (SBHLAB)[address] COMPREHENSIVE METABOLIC PANE Real 03-02-2023 Albumin [Mass/Vol] 3.1 g/dL Low 3.5-5.0 [facility] Comment on above: Performed By: #### Eduardo ABUmberto, LAB17, [id number] ####Smelting Engineer: MARTIN REYES ([phone])[facility]ITAL[facility] (SBHL[facility])[address] ALP [Catalytic activity/Vol] 100 U/L Normal 38-126 [facility] Comment on above: Performed By: #### L ABUmberto, LAB17, [id number] ####Smelting Engineer: MARTIN REYES ([id number])[facility]ITAL[facility] (SBHL[facility])[address] ALT [Catalytic activity/Vol] 13 U/L Normal 0-34 [facility] Comment on above: Performed By: #### L AB127, LAB17, XOO666 ####Smelting Engineer: MARTIN REYES ([id number])[facility] (SBHLAB)[address] Anion gap [Moles/Vol] 3 mmol/L Normal 3-13 [facility] Comment on above: Performed By: #### L AB127, LAB17, [id number] ####Smelting Engineer: MARTIN REYES ([id number])[facility] (SBHLAB)[address] AST [Catalytic activity/Vol] 22 U/L Normal 15-46 [facility] Comment on above: Performed By: #### Eduardo TEAGUE, LAB17, [id number] ####Smelting Engineer: MARTIN REYES ([phone])[facility] (SBHLAB)[address] Bilirubin [Mass/Vol] 0.4 mg/dL Normal 0.2-1.3 [facility] Comment on above: Performed By: #### Eduardo TEAGUE, LAB17, GSK227 ####Smelting Engineer: MARTIN REYES ([phone])[facility] (SBHLAB)[address] Calcium [Mass/Vol] 8.4 mg/dL Normal 8.4-10.4 [facility] Comment on above: Performed By: #### Eduardo TEAGUE, LAB17, ZER177 ####Smelting Engineer: MARTIN REYES ([id number])[facility] (SBHLAB)[address] [place] [address] [place] Chloride [Moles/Vol] 105 mmol/L Normal 98-107 [facility] Comment on above: Performed By: #### Eduardo TEAGUE, LAB17, [id number] ####Smelting Engineer: MARTIN REYES ([phone])[facility]ITAL[facility] B[facility]RIOSNEW [facility]ERN (SBHLAB)[address] [place] [address] [place] CO2 [Moles/Vol] 27 mmol/L Normal 22-30 [facility] Comment on above: Performed By: #### Eduardo TEAGUE, LAB17, [id number] ####Smelting Engineer: MARTIN REYES ([phone])[facility] (SBHLAB)[address] [place] [address] [place] Creatinine [Mass/Vol] 0.77 mg/dL Normal 0.52-1.04 [facility] Comment on above: Performed By: #### Eduardo TEAGUE, LAB17, [id number] ####Smelting Engineer: MARTIN REYES ([phone])[facility] (SBHLAB)[address] GLOMERULAR FILTRATION RATE ML/MIN/1.73 SQ M.PREDICTED 78.6 mL/min/1.73m*2 Normal >60.0 [facility] Comment on above: Result Comment: Calc ulation based on the Chronic Kidney Disease Epidemiology Collaboration (CKD-EPI) equation refit without adjustment for race Performed By: #### Eduardo TEAGUE, LAB17, [id number] ####Smelting Engineer: MARTIN REYES ([phone])[facility] ([facility])[address] [place] [address] Glucose [Mass/Vol] 97 mg/dL Normal 70-100 [facility] Comment on above: Performed By: #### Eduardo TEAGUE, LAB17, PAT769 ####Smelting Engineer: MARTIN REYES ([id number])[facility] (SBHL[facility])[address] [place] [address] Potassium [Moles/Vol] 4.1 mmol/L Normal 3.5-5.1 [facility] Comment on above: Performed By: #### Eduardo TEAGUE, LAB17, [id number] ####Smelting Engineer: MARTIN REYES ([id number])[facility] (SBHLAB)[address] [place] [address] Protein [Mass/Vol] 5.8 g/dL Low 6.3-8.2 [facility] Comment on above: Performed By: #### Eduardo TEAGUE, LAB17, [id number] ####Smelting Engineer: MARTIN REYES ([id number])[facility] (SB[facility])[address] Sodium [Moles/Vol] 135 mmol/L Normal 135-145 [facility] Comment on above: Performed By: #### Eduardo TEAGUE, LAB17, EHV134 ####Smelting Engineer: MARTIN REYES ([phone])[facility] (SBHLAB)[address] Urea nitrogen [Mass/Vol] 15 mg/dL Normal 7-17 [facility] Comment on above: Performed By: #### L AB127, LAB17, XRI772 ####Smelting Engineer: MARTIN REYES ([id number])[facility] (SBHLAB)[address] Comprehensive metabolic 1998 panelon 03-02-2023 Albumin [Mass/Vol] 3.1 g/dL Low 3.5 - 5.0 g/dL [facility] ALP [Catalytic activity/Vol] 100 U/L 38 - 126 U/L [facility] ALT [Catalytic activity/Vol] 13 U/L 0 - 34 U/L [facility] Anion gap [Moles/Vol] 3 mmol/L 3 - 13 mmol/L [facility] AST [Catalytic activity/Vol] 22 U/L 15 - 46 U/L [facility] Bilirubin [Mass/Vol] 0.4 mg/dL 0.2 - 1 .3 mg/dL [facility] Calcium [Mass/Vol] 8.4 mg/dL 8.4 - 10. 4 mg/dL [facility] Chloride [Moles/Vol] 105 mmol/L 98 - 10 7 mmol/L [facility] CO2 [Moles/Vol] 27 mmol/L 22 - 30 mmol/L [facility] Creatinine [Mass/Vol] 0.77 mg/dL 0.52 - 1.04 mg/dL [facility] GFR/1.73 sq M.predicted MDRD (S/P/Bld) [Vol rate/Area] 78.6 mL/min/{1.73_m2} - PINF [facility] Comment on above: Calculation based on the Chronic Kidney Disease Epidemiology Collaboration (CKD-EPI) equation refit without adjustment for race Glucose [Mass/Vol] 97 mg/dL 70 - 100 mg/dL [facility] Interpretation and review of laboratory results Abnormal [facility] Potassium [Moles/Vol] 4.1 mmol/L 3.5 - 5.1 mmol/L [facility] Protein [Mass/Vol] 5.8 g/dL Low 6.3 - 8.2 g/dL [facility] Sodium [Moles/Vol] 135 mmol/L 135 - 145 mmol/L [facility] Urea nitrogen [Mass/Vol] 15 mg/dL 7 - 17 mg/dL [facility] FREE T4on 03-02-2023 Free T4 [Mass/Vol] 3.28 ng/dL High 0.78-2.19 [facility] Comment on above: Performed By: #### L AB127, LAB17, [id number] ####Smelting Engineer: MARTIN REYES ([phone])[facility] (SBHLAB)[address] [place] [address] Free T4 [Mass/Vol]on 023 Free T4 Dialysis [Mass/Vol] 3.28 ng/dL High 0.78 - 2.19 ng/dL [facility] No Panel Informationon 03-02 Interpretation and review of laboratory results Abnormal [facility] POCT glucose meteron 023 Glucose [Mass/Vol] 175 mg/dL High 70 - 100 mg/dL [facility] Interpretation and review of laboratory results Abnormal [facility] Performed by: [facility], [address] [place] [address] CLIA ID: [id number] [facility] Glucose [Mass/Vol] 214 mg/dL High 70 - 100 mg/dL [facility] Interpretation and review of laboratory results Abnormal [facility] Performed by: [facility], [address] [place] [address] CLIA ID: [id number] [facility] Glucose [Mass/Vol] 141 mg/dL High 70 - 100 mg/dL [facility] Interpretation and review of laboratory results Abnormal [facility] Performed by: [facility], [address] [place] [address] CLIA ID: [id number] [facility] Progress Noteon 03-02-2023 Progress Note Department of Airport Security Screener al Medicine Division of Endocrinology, Diabetes, & Metabolism Endocrinology Note Patient Name: Radha Sandoavl : 1945 AGE: 77 y.o. Room[facility]Bed: [facility] A Admission Date: 02/28/2023 Visit Date: 03/02/2023 Reason for Endocrine Consult: DM-Uncontrolled Provider/Team Requesting Consult: Dr. 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 She has been having diarrhea in [id number], smt severe Glimepiride- started in 2015 Trulicity [...] reviewed. Constituti (more content not included)... Normal [facility] Progress Note Occupational Therapy OCCUPATIONAL THERAPY [facility] Treatment Note Name/MRN: Radha Sandoval ([id number]) Date of : 1945 Age: 77 y.o. [...] to rehab service department Occupational Therapist Normal [facility] Progress Note [facility] Geriatric Medicine Inpatient Consult Service Admission Date: 02/28/2023 Assessment Principal Problem: LING (acute kidney injury) (CMS/HCC) ([facility]) Active Problems: Declining functional status Weakness Anxiety Polypharmacy DNR (do not resuscitate) Insomnia Plan Declining functional status -Related to physical deconditioning, UTI, advanced age, diabetes type 2 -Continue PT/OT as able while inpatient -Anticipate d/c to SNF for ongoing daily PT/OT, patient agreeable to go to [facility] Fall Weakness -Multiple risk factors including [...] you Subjective Chief Complaint: low back pain/dysuria/polyuria/w [facility] Geriatrics consulted for functional decline HPI- The [...] contact guard. Ambulated 30 ft x2. Recommending long-term facility . Review of Systems Constitutional: Negative [...] 2 pu (more content not included)... Normal [facility] Progress Note Nutrition rescreen completed. Pt referred to RD for uncontrolled DM, and nutrition supplement per Wound Care. Normal [facility] VITAMIN D DEFICIENCY SCREENI NG (VIT D 25)on 03-02-2023 VIT D 25-OH, TOTAL 17 ng/mL Low 30-100 [facility] Comment on above: Result Comment: LISA Mejia COMMENTS: Therapy is based on measurement of Total 25-OHD with the following classification levels: Less than 20 ng/mL: Indicative of Vit D deficiency 20-30 ng/mL: Suggests Vit D insufficiency Optimal: Greater than or equal to 30 ng/mL Test performed by [employer] Competitive Immunoassay, measuring Total Vitamin D, not individual fractions. Performed By: #### L AB127, LAB17, [id number] ####Smelting Engineer: MARTIN REYES ([phone])[facility] ([facility])[address] [place] [address] Vitamin D Deficiency Screeni ng (Vit D 25)on 03-02-2023 25-hydroxyvitamin D3 [Mass/Vol] 17 ng/mL Low 30 - 100 ng/mL [facility] [id number] 03-01-2023 [id number] Osteopathic Neurologist following case for Discharge Needs. Therapy states SNF, but Patient wants HC instead. [facility] CAR[facility]IORD [facility] Initi al Assessment Date: 03/01/2023 Patient Name: Radha Sandoval : 1945 Patient Information Source of Information: Patient Cognition/Language: WFL - Within Functional Limits Permission given to speak with patient uniforms sales representative/caregive r as indicated: Yes Confirmation of Payer with patient/family: Yes Payer Name: [employer] [place]: No Confirmation of Primary Care Physician: Confirmed [...] Prescription Coverage: Yes Pharmacy Used: [facility] Medication Management: Independent Transportation/Shopping : Independent Transportation [...] follow as needed. Laura Jackson RN Normal [facility] CBC W Auto Differential pane l (Bld)Ordered By: Rosey Viera on 03-01-2023 Basophils (Bld) [#/Vol] 0.1 10*3/uL 0.0 - 0.2 10*3/uL [facility] Basophils/100 WBC (Bld) 0.6 % 0.0 - 2.0 % [facility] Eosinophils (Bld) [#/Vol] 0.2 10*3/uL 0.0 - 0.5 10*3/uL [facility] Eosinophils/100 WBC (Bld) 1.4 % 1.0 - 6.0 % [facility] Erythrocyte distribution width (RBC) [Ratio] 13.6 % 11.5 - 14.5 % [facility] Hematocrit (Bld) [Volume fraction] 34.9 % Low 35.0 - 47.0 % [facility] Hemoglobin (Bld) [Mass/Vol] 11.5 g/dL Low 11.7 - 16.0 g/dL [facility] Interpretation and review of laboratory results Abnormal [facility] Lymphocytes (Bld) [#/Vol] 1.7 10*3/uL 1.0 - 4.3 10*3/uL [facility] Lymphocytes/100 WBC (Bld) 12.6 % Low 20.0 - 40.0 % [facility] MCH (RBC) [Entitic mass] 28.7 pg 26.0 - 34.[address] [facility] MCHC (RBC) [Mass/Vol] 33.0 % 32.0 - 36.0 % [facility] MCV (RBC) [Entitic vol] 87.1 fL 80.0 - 98.[address] [facility] Monocytes (Bld) [#/Vol] 1.5 10*3/uL High 0.0 - 0.8 10*3/uL [facility] Monocytes/100 WBC (Bld) 10.8 % High 2.0 - 10.0 % [facility] Neutrophils (Bld) [#/Vol] 10.3 10*3/uL High 1.8 - 7.0 10*3/uL [facility] Neutrophils/100 WBC (Bld) 74.6 % 40.0 - 80.0 % [facility] Nucleated RBC/100 WBC (Bld) [Ratio] 0.0 % [facility] Platelet mean volume (Bld) [Entitic vol] 8.5 fL 7.4 - 12.[address] [facility] Platelets (Bld) [#/Vol] 271 10*3/uL 140 - 440 10*3/uL [facility] RBC (Bld) [#/Vol] 4.00 10*6/uL 3.8 - 5.20 10*6/uL [facility] WBC (Bld) [#/Vol] 13.8 10*3/uL High 3.6 - 10.7 10*3/uL [facility] CBC WITH AUTO DIFFERENTIALon 03-01-2023 Basophils (Bld) [#/Vol] 0.1 10*3/uL Normal 0.0-0.2 [facility] Comment on above: Performed By: #### L [id number] ####Smelting Engineer: MARTIN REYES ([phone])[facility] ([facility])[address] [place] [address] Basophils/100 WBC (Bld) 0.6 % Normal 0.0-2.0 [facility] Comment on above: Performed By: #### L [id number] ####Smelting Engineer: MARTIN REYES ([phone])[facility] ([facility])[address] Eosinophils (Bld) [#/Vol] 0.2 10*3/uL Normal 0.0-0.5 [facility] Comment on above: Performed By: #### L [id number] ####Smelting Engineer: MARTIN REYES ([phone])[facility] ([facility])[address] Eosinophils/100 WBC (Bld) 1.4 % Normal 1.0-6.0 [facility] Comment on above: Performed By: #### L [id number] ####Smelting Engineer: MARTIN HUANateJOSE R ([phone])[facility] ([facility])[address] [place] [address] Erythrocyte distribution width (RBC) [Ratio] 13.6 % Normal 11.5-14.5 [facility] Comment on above: Performed By: #### L [id number] ####Smelting Engineer: MARTIN ERIC ([phone])[facility] (SBHLAB)[address] ERYTHROCYTE MEAN CORPUSCULAR HEMOGLOBIN CONCENTRATION (G/DL) BY AUTOMATED 33.0 % Normal 32.0-36.0 [facility] Comment on above: Performed By: #### L [id number] ####Smelting Engineer: MARTIN ERIC ([phone])[facility] ([facility])[address] [place] [address] Hematocrit (Bld) [Volume fraction] 34.9 % Low 35.0-47.0 [facility] Comment on above: Performed By: #### L [id number] ####Smelting Engineer: MARTIN AMBROSEJOSE R ([phone])[facility] ([facility])[address] [place] [address] Hemoglobin (Bld) [Mass/Vol] 11.5 g/dL Low 11.7-16.0 [facility] Comment on above: Performed By: #### L [id number] ####Smelting Engineer: MARTIN AMBROSEJOSE R ([phone])[facility] (SB[facility])[address] [place] [address] Lymphocytes (Bld) [#/Vol] 1.7 10*3/uL Normal 1.0-4.3 [facility] Comment on above: Performed By: #### L [id number] ####Smelting Engineer: MARTIN AMBROSEJOSE R ([phone])[facility] ([facility])[address] [place] [address] Lymphocytes/100 WBC (Bld) 12.6 % Low 20.0-40.0 [facility] Comment on above: Performed By: #### L [id number] ####Smelting Engineer: MARTIN HUANateJOSE R ([id number])[facility] ([facility])[address] MCH (RBC) [Entitic mass] 28.7 pg Normal 26.0-34.0 [facility] Comment on above: Performed By: #### L [id number] ####Smelting Engineer: MARTIN ERIC ([id number])[facility] ([facility])[address] MCV (RBC) [Entitic vol] 87.1 fL Normal 80.0-98.0 [facility] Comment on above: Performed By: #### L [id number] ####Smelting Engineer: MARTIN ERIC ([id number])[facility] ([facility])[address] [place] [address] [place] Monocytes (Bld) [#/Vol] 1.5 10*3/uL High 0.0-0.8 [facility] Comment on above: Performed By: #### L [id number] ####Smelting Engineer: MARTIN REYES ([id number])[facility] (SBHLAB)[address] Monocytes/100 WBC (Bld) 10.8 % High 2.0-10.0 [facility] Comment on above: Performed By: #### L [id number] ####Smelting Engineer: MARTIN ERIC ([id number])[facility] (SBHLAB)[address] [place] [address] [place] Neutrophils (Bld) [#/Vol] 10.3 10*3/uL High 1.8-7.0 [facility] Comment on above: Performed By: #### L [id number] ####Smelting Engineer: MARTIN ERIC ([id number])[facility] (SBHLAB)[address] [place] [address] [place] Neutrophils/100 WBC (Bld) 74.6 % Normal 40.0-80.0 [facility] Comment on above: Performed By: #### L [id number] ####Smelting Engineer: MARTIN REYES ([id number])[facility] [place] [facility] NRBC (PER 100 WBCS) BY AUTOMATED COUNT 0.0 /100 WBCs Normal 0.0-2.0 [facility] Comment on above: Performed By: #### L [id number] ####Smelting Engineer: MARTIN REYES ([id number])[facility] [place] ([facility] Platelet mean volume (Bld) [Entitic vol] 8.5 fL Normal 7.4-12.4 [facility] Comment on above: Performed By: #### L [id number] ####Smelting Engineer: MARTIN REYES ([phone])[facility] [place] ([facility])[address] PLATELETS (10*3/UL) IN BLOOD AUTOMATED COUNT 271 10*3/uL Normal 140-440 [facility] Comment on above: Performed By: #### L [id number] ####Smelting Engineer: MARTIN REYES ([id number])[facility] [place] ([facility])[address] [place] [address] RBC (Bld) [#/Vol] 4.00 10*6/uL Normal 3.8-5.20 [facility] Comment on above: Performed By: #### L [id number] ####Smelting Engineer: MARTIN REYES ([id number])[facility] [place] ([facility])[address] [place] [address] [place] WBC (Bld) [#/Vol] 13.8 10*3/uL High 3.6-10.7 [facility] Comment on above: Performed By: #### L [id number] ####Smelting Engineer: MARTIN REYES ([phone])[facility] [place] ([facility])[address] COMPREHENSIVE METABOLIC PANE Real 03-01-2023 Albumin [Mass/Vol] 3.1 g/dL Low 3.5-5.0 [facility] Comment on above: Performed By: #### L [id number] ####Smelting Engineer: MARTIN REYES ([id number])[facility] [place] ([facility])[address] ALP [Catalytic activity/Vol] 102 U/L Normal 38-126 [facility] Comment on above: Performed By: #### L [id number] ####Smelting Engineer: MARTIN REYES ([id number])[facility] [place] ([facility])[address] ALT [Catalytic activity/Vol] 16 U/L Normal 0-34 [facility] Comment on above: Performed By: #### L [id number] ####Smelting Engineer: MARTIN REYES ([id number])[facility] [place] ([facility])[address] Anion gap [Moles/Vol] 9 mmol/L Normal 3-13 [facility] Comment on above: Performed By: #### L [id number] ####Smelting Engineer: MARTIN REYES ([id number])[facility] [place] ([facility])[address] AST [Catalytic activity/Vol] 24 U/L Normal 15-46 [facility] Comment on above: Performed By: #### L [id number] ####Smelting Engineer: MARTIN REYES ([id number])[facility] ([facility])[address] Bilirubin [Mass/Vol] 0.4 mg/dL Normal 0.2-1.3 [facility] Comment on above: Performed By: #### L [id number] ####Smelting Engineer: MARTIN REYES ([id number])[facility] [place] ([facility])[address] Calcium [Mass/Vol] 8.3 mg/dL Low 8.4-10.4 [facility] Comment on above: Performed By: #### L [id number] ####Smelting Engineer: MARTIN REYES ([id number])[facility] (SBHLAB)[address] Chloride [Moles/Vol] 102 mmol/L Normal 98-107 [facility] Comment on above: Performed By: #### L [id number] ####Smelting Engineer: MARTIN REYES ([phone])[facility] [place] (SBHLAB)[address] CO2 [Moles/Vol] 26 mmol/L Normal 22-30 [facility] Comment on above: Performed By: #### L [id number] ####Smelting Engineer: MARTIN REYES ([id number])[facility] (SBHLAB)[address] Creatinine [Mass/Vol] 0.96 mg/dL Normal 0.52-1.04 [facility] Comment on above: Performed By: #### L [id number] ####Smelting Engineer: MARTIN REYES ([id number])[facility] ([facility])[address] GLOMERULAR FILTRATION RATE ML/MIN/1.73 SQ M.PREDICTED 60.3 mL/min/1.73m*2 Normal >60.0 [facility] Comment on above: Result Comment: Calc ulation based on the Chronic Kidney Disease Epidemiology Collaboration (CKD-EPI) equation refit without adjustment for race Performed By: #### L [id number] ####Smelting Engineer: MARTIN REYES ([phone])[facility] [place] (SBHLAB)[address] [place] [address] [place] Glucose [Mass/Vol] 123 mg/dL High 70-100 [facility] Comment on above: Performed By: #### L [id number] ####Smelting Engineer: MARTIN REYES ([id number])[facility] (SBHLAB)[address] [place] [address] [place] Potassium [Moles/Vol] 4.3 mmol/L Normal 3.5-5.1 [facility] Comment on above: Performed By: #### L [id number] ####Smelting Engineer: MARTIN REYES ([phone])[facility] (SBHLAB)[address] Protein [Mass/Vol] 6.0 g/dL Low 6.3-8.2 [facility] Comment on above: Performed By: #### L [id number] ####Smelting Engineer: MARTIN REYES ([id number])[facility] [place] ([facility])[address] Sodium [Moles/Vol] 137 mmol/L Normal 135-145 [facility] Comment on above: Performed By: #### L [id number] ####Smelting Engineer: MARTIN REYES ([id number])[facility] (SBHLAB)[address] Urea nitrogen [Mass/Vol] 17 mg/dL Normal 7-17 [facility] Comment on above: Performed By: #### L [id number] ####Smelting Engineer: MARTIN REYES ([id number])[facility] (SBHLAB)[address] [place] [address] Comprehensive metabolic 1998 panelon 03-01-2023 Albumin [Mass/Vol] 3.1 g/dL Low 3.5 - 5.0 g/dL [facility] ALP [Catalytic activity/Vol] 102 U/L 38 - 126 U/L [facility] ALT [Catalytic activity/Vol] 16 U/L 0 - 34 U/L [facility] Anion gap [Moles/Vol] 9 mmol/L 3 - 13 mmol/L [facility] AST [Catalytic activity/Vol] 24 U/L 15 - 46 U/L [facility] Bilirubin [Mass/Vol] 0.4 mg/dL 0.2 - 1 .3 mg/dL [facility] Calcium [Mass/Vol] 8.3 mg/dL Low 8.4 - 10. 4 mg/dL [facility] Chloride [Moles/Vol] 102 mmol/L 98 - 10 7 mmol/L [facility] CO2 [Moles/Vol] 26 mmol/L 22 - 30 mmol/L [facility] Creatinine [Mass/Vol] 0.96 mg/dL 0.52 - 1.04 mg/dL [facility] GFR/1.73 sq M.predicted MDRD (S/P/Bld) [Vol rate/Area] 60.3 mL/min/{1.73_m2} - PINF [facility] Comment on above: Calculation based on the Chronic Kidney Disease Epidemiology Collaboration (CKD-EPI) equation refit without adjustment for race Glucose [Mass/Vol] 123 mg/dL High 70 - 100 mg/dL [facility] Interpretation and review of laboratory results Abnormal [facility] Potassium [Moles/Vol] 4.3 mmol/L 3.5 - 5.1 mmol/L [facility] Protein [Mass/Vol] 6.0 g/dL Low 6.3 - 8.2 g/dL [facility] Sodium [Moles/Vol] 137 mmol/L 135 - 145 mmol/L [facility] Urea nitrogen [Mass/Vol] 17 mg/dL 7 - 17 mg/dL [facility] Consulton 03-01-2023 Consult [facility] CONSULT Note Radha Sandoval AGE: [...] mellitus with hyperglycemia (HCC) 01/16/2020 Morbidly obese ([facility]) 01/16/2020 Vitamin D deficiency 01/16/2020 Moderate episode of recurrent major depressive disorder ([facility]) 06/03/2019 OAB (overactive bladder) 05/06/2021 Localized edema 10/01/2020 Insomnia 04/06/2015 Dyspnea on exertion 09/09/2021 Muscle spasms of both lower extremities 09/09/2021 Chronic renal insufficiency, stage III (moderate) (HCC) 06/03/2019 Restless legs syndrome (RLS) 01/14/2015 Hyperlipidemia with target LDL less than 70 06/03/2019 Lymphedema of both lower extremities 08/05/2021 Hypertension 01/14/2015 Hypothyroidism 01/14/2015 Diabetes mellitus due to underlying condition with diabetic chronic kidney disease ([facility]) 06/30/2022 DDD (degenerative disc disease), lumbar 06/30/2022 [...] Hyperparathyroidism (HCC) Malaise and fatigue Morbid obesity ([facility]) Muscle weakness Nevus, non-neoplastic Pain in limb Pure hypercholesterolemia RLS (restless legs syndrome) Type 2 diabetes mellitus ([facility]) Varicella PAST SURGICAL HISTORY Past Surgical History: Procedure Laterality Date APPENDECTOMY CHOLECYSTECTOMY 1979 COLONOSCOPY 06/19/2008 COLONOSCOPY W/ BIOPSIES AND POLYPECTOMY N/A 12/07/2022 Performed by Avery Marshall DO at [facility] ENDOSCOPY EYE SURGERY Bilateral early 90's [...] tablet 0 ergocalciferol (Vitamin D-2) 1.25 MG (62502 UT) capsule Take 1 capsule (1.25 mg) by mouth 1 (one) time per week. 90 capsule 1 Glucose Blood (Blood Glucose Test) strip 4 times daily. hydrOX (more content not included)... Normal [facility] Consult [facility] Geriatric Medicine Inpatient Consult Service Admission Date: 02/28/2023 Admission Status: INPATIENT Chief Complaint: I couldn't get around and they directed me to the hospital because I was peeing constantly from that UTI. Reason for Appointment Geriatrics consulted for functional decline Assessment/Plan Principal Problem: LING (acute kidney injury) ([facility]) ([facility]) Active Problems: Declining functional status Weakness Anxiety [...] necessary I recommended follow up at our [facility] at [phone]. Call in 2 weeks for memory (re)testing once acute issue(s) resolve - order placed in [facility] for follow-up Other I deferred full MMSE [...] well overnight. Awo (more content not included)... [facility] Consult This patient is not a new diabetic or new to insulin therapy and therefore does not meet our current criteria for the inpatient diabetes education service. The clinical bedside RN should provide any necessary diabetes education using the Diabetes Survival Skills Booklet available on the unit. Please consider a dietary consult if appropriate and if not already ordered. Contact [facility] pharmacist for assistance if a new glucometer or any associated supplies are needed. Thank you. Elder MUÑOZ,BSN,[facility] Consult Department of Airport Security Screener al Medicine Division of Endocrinology, Diabetes, & Metabolism Endocrinology Note Patient Name: Radha Sandoval : 1945 AGE: 77 y.o. Room[facility]Bed: [facility] A Admission Date: 02/28/2023 Visit Date: 03/01/2023 Reason for Endocrine Consult: DM-Uncontrolled Provider/Team Requesting Consult: Dr. Finch PCP: Shiv Lopez MD Outpt Supervisor Laundry: No ASSESSMENT: Type II diabetes with hyperglycemia, with [facility] insulin use Postoperative hypothyroidism PLAN: Humalog 6 [...] diagnosis. She has been having diarrhea in [id number], smt severe Glimepiride- started in 2015 Trulicity [...] Heart s (more content not included)... Normal [facility] HEMOGLOBIN A1Con 03-01-2023 Glucose [Mass/Vol] 315 mg/dL Normal [facility] Comment on above: Performed By: #### L [id number] ####Smelting Engineer: MARTIN REYES ([id number])[facility] ([facility])[address] [place] [address] HbA1c (Bld) [Mass fraction] 12.6 % High <5.7 [facility] Comment on above: Result Comment: Norm al less than 5.7% Prediabetes 5.7% to 6.4% Diabetes 6.5% or higher --HgbA1C levels may not be accurate in patients who have renal disease, received recent blood transfusions, are anemic, or who have dyshemoglobinemia. Performed By: #### L AB90 ####Smelting Engineer: MARTIN REYES ([phone])[facility] ([facility])[address] [place] [address] HbA1c (Bld) [Mass fraction]o n 03-01-2023 Average glucose Estimated from glycated hemoglobin (Bld) [Mass/Vol] 315 mg/dL [facility] Interpretation and review of laboratory results Abnormal [facility] Hemoglobin A1con 03-01-2023 HbA1c (Bld) [Mass fraction] 12.6 % High NINF - 5.7 % [facility] Comment on above: Normal less than 5.7 % Prediabetes 5.7% to 6.4% Diabetes 6.5% or higher --HgbA1C levels may not be accurate in patients who have renal disease, received recent blood transfusions, are anemic, or who have dyshemoglobinemia. POCT glucose meteron 023 Glucose [Mass/Vol] 194 mg/dL High 70 - 100 mg/dL [facility] Interpretation and review of laboratory results Abnormal [facility] Performed by: [facility], [address] [place] [address] CLIA ID: [id number] [facility] Glucose [Mass/Vol] 95 mg/dL 70 - 100 mg/dL [facility] Interpretation and review of laboratory results Normal [facility] Performed by: [facility], [address] [place] [id number] CLIA ID: [id number] [facility] Glucose [Mass/Vol] 153 mg/dL High 70 - 100 mg/dL [facility] Interpretation and review of laboratory results Abnormal [facility] Performed by: [facility], [address] [place] [address] CLIA ID: [id number] [facility] Glucose [Mass/Vol] 172 mg/dL High 70 - 100 mg/dL [facility] Interpretation and review of laboratory results Abnormal [facility] Performed by: [facility], [address] [place] [address] CLIA ID: [id number] [facility] PROCALCITONIN TESTon 023 PROCALCITONIN 0.05 ng/mL Normal 0.00-0.09 [facility] Comment on above: Result Comment: ORDE R COMMENTS: PCT <0.50 = Low risk of severe sepsis and/or septic shock. PCT >2.00 = High risk of severe sepsis and/or septic shock. Performed By: #### L [id number] ####Smelting Engineer: ASHLEY LLANOS ([id number])[facility] ([address] Procalcitonin Teston 023 Procalcitonin [Mass/Vol] 0.05 ng/mL 0.00 - 0.09 ng/mL [facility] Procalcitonin [Mass/Vol]on 0 03-01-2023 Interpretation and review of laboratory results Normal [facility] PCT <0.50 = Low risk of severe sepsis and/or septic shock. PCT >2.00 = High risk of severe sepsis and/or septic shock. [facility] Progress Noteon 03-01-2023 Progress Note Physical Therapy Facility/Department: [address] Physical Therapy Initial Evaluation NAME: Radha Sandoval : 1945 Date of Service: 03/01/2023 Discharge Recommendations: Fdc Facility, Continue to assess pending progress PT [...] diagnosis was LING (acute kidney injury) (CMS/HCC) ([facility]). Diagnoses of Pyelonephritis, Polypharmacy, Insomnia, unspecified type, [...] repair (Left); Tonsillectomy; Eye surgery (Bilateral, early s); and Colonoscopy w/ biopsies and polypectomy (N/A, [...] Device: straight cane Transfer Assistance: Independent Active [employer] Principal: Yes Objective Observation/Palpation Posture: Good Observation: PIV [...] from lucy (more content not included)... Normal [facility] Progress Note Occupational Therapy OCCUPATIONAL THERAPY [facility] Initial Evaluation Name/MRN: Radha Sandoval ([id number]) Evaluation Date: 03/01/2023 Date of : 1945 [...] 12/07/2022 Performed by Avery Marshall DO at [facility] ENDOSCOPY EYE SURGERY Bilateral early 90's LUNG REMOVAL, PARTIAL Left ROTATOR CUFF REPAIR Left TONSILLECTOMY Admission Diagnosis: Patient Active Problem List Diagnosis Date Noted LING (acute kidney injury) ([facility]/HCC) ([facility]) 02/28/2023 Acute cystitis with hematuria 02/27/2023 Diarrhea 02/27/2023 Wound of right buttock 02/07/2023 Hypokalemia 12/13/2022 Gastrointestinal bleed 12/07/2022 Other chronic sinusitis 10/25/2022 Urinary frequency 10/04/2022 Chronic left shoulder pain 10/04/2022 Diabetes mellitus due to underlying condition with diabetic chronic kidney disease ([facility]) 06/30/2022 DDD (degenerative disc disease), lumbar 06/30/2022 Chronic right-sided low back pain with right-sided sciatica 06/30/2022 Dyspnea on exertion 09/09/2021 Muscle spasms of both lower extremities 09/09/2021 Lymphedema of both lower extremities 08/05/2021 OAB (overactive bladder) 05/06/2021 Localized edema 10/01/2020 Dependent edema 07/13/2020 Uncontrolled type 2 diabetes mellitus with hyperglycemia ([facility]) 01/16/2020 Morbidly obese ([facility]) 01/16/2020 Vitamin D deficiency 01/16/2020 Moderate episode of recurrent major depressive disorder ([facility]) 06/03/2019 Chronic renal insufficiency, stage III (moderate) ([facility]) 06/03/2019 Hyperlipidemia with target LDL less than [...] Responsibilities: Independent Receives Help From: None Active [employer] Principal: Yes Prior Level of Function ADL Assistance: [...] Adls. Upper Ext (more content not included)... [facility] 36on 02-28-2023 36 Noted. Patient sana dy notified. See previous TE if needed. [facility] 36 Called and spoke wit h [...] states that she will be going to [facility]. [facility] 36 S: Christine from [employer] [phone] spoke with [facility] nurse regarding critical lab results B: Glucose A: Blood was drawn yesterday. Glucose was 524, resulting this morning. Verified with repeat analysis. The lab work was ordered by Katia Granados CNP. R: Since office is open, called back line and spoke with Katia Schulz's nurse. Result given. No further instructions to the [facility] nurse. Reason for Disposition Lab or radiology calling with CRITICAL test results Protocols used: PCP Call - No [facility] CARECOORDon 02-28-2023 CARECOORD Next Site of Care Admission Date: 02/28/2023 11:30 AM Patient Name: RADHA SANDOVAL Location: [facility] 1E MED SURG/SBH [id number] A Date of : 1945 - Placement Information - Referral Type:Custodial/SNF - New Referral ID:[facility]-[id number] Provider Name:[facility] Address 1:[address] [facility] Address 2: City:[place] Selection Factors:Patient/Family Choice State:[place] Normal [facility] CBC W Auto Differential pane l (Bld)Ordered By: Clayton Lozano on 02-28-2023 Basophils (Bld) [#/Vol] 0.1 10*3/uL 0.0 - 0.2 10*3/uL [place] Basophils/100 WBC (Bld) 0.5 % 0.0 - 2.0 % [facility] Eosinophils (Bld) [#/Vol] 0.1 10*3/uL 0.0 - 0.5 10*3/uL [facility] Eosinophils/100 WBC (Bld) 0.9 % Low 1.0 - 6.0 % [facility] Erythrocyte distribution width (RBC) [Ratio] 13.8 % 11.5 - 14.5 % [facility] Hematocrit (Bld) [Volume fraction] 36.0 % 35.0 - 47.0 % [facility] Hemoglobin (Bld) [Mass/Vol] 11.5 g/dL Low 11.7 - 16.0 g/dL [facility] Interpretation and review of laboratory results Abnormal [facility] Lymphocytes (Bld) [#/Vol] 0.8 10*3/uL Low 1.0 - 4.3 10*3/uL [facility] Lymphocytes/100 WBC (Bld) 6.4 % Low 20.0 - 40.0 % [facility] MCH (RBC) [Entitic mass] 28.0 pg 26.0 - 34.[address] [facility] MCHC (RBC) [Mass/Vol] 32.0 % 32.0 - 36.0 % [facility] MCV (RBC) [Entitic vol] 87.5 fL 80.0 - 98.0 fL [facility] Monocytes (Bld) [#/Vol] 1.1 10*3/uL High 0.0 - 0.8 10*3/uL [facility] Monocytes/100 WBC (Bld) 9.0 % 2.0 - 10.0 % [facility] Neutrophils (Bld) [#/Vol] 10.2 10*3/uL High 1.8 - 7.0 10*3/uL [facility] Neutrophils/100 WBC (Bld) 83.2 % High 40.0 - 80.0 % [facility] Nucleated RBC/100 WBC (Bld) [Ratio] 0.0 % [facility] Platelet mean volume (Bld) [Entitic vol] 8.6 fL 7.4 - 12.4 fL [facility] Platelets (Bld) [#/Vol] 278 10*3/uL 140 - 440 10*3/uL [facility] RBC (Bld) [#/Vol] 4.11 10*6/uL 3.8 - 5.20 10*6/uL [facility] WBC (Bld) [#/Vol] 12.3 10*3/uL High 3.6 - 10.7 10*3/uL [facility] CBC WITH AUTO DIFFERENTIALon 02-28-2023 Basophils (Bld) [#/Vol] 0.1 10*3/uL Normal 0.0-0.2 [facility] Comment on above: Performed By: #### L [id number] ####Smelting Engineer: MARTIN REYES ([id number])[facility] ([facility])[address] Basophils/100 WBC (Bld) 0.5 % Normal 0.0-2.0 [facility] Comment on above: Performed By: #### L [id number] ####Smelting Engineer: MARTIN REYES ([id number])[facility] ([facility])[address] [place] [address] Eosinophils (Bld) [#/Vol] 0.1 10*3/uL Normal 0.0-0.5 [facility] Comment on above: Performed By: #### L [id number] ####Smelting Engineer: MARTIN REYES ([id number])[facility] (SBHLAB)[address] [place] [address] Eosinophils/100 WBC (Bld) 0.9 % Low 1.0-6.0 [facility] Comment on above: Performed By: #### L [id number] ####Smelting Engineer: MARTIN REYES ([id number])[facility] [place] ([facility])[address] [place] [address] Erythrocyte distribution width (RBC) [Ratio] 13.8 % Normal 11.5-14.5 [facility] Comment on above: Performed By: #### L [id number] ####Smelting Engineer: MARTIN REYES ([id number])[facility] (SBHLAB)[address] [place] [address] ERYTHROCYTE MEAN CORPUSCULAR HEMOGLOBIN CONCENTRATION (G/DL) BY AUTOMATED 32.0 % Normal 32.0-36.0 [facility] Comment on above: Performed By: #### L [id number] ####Smelting Engineer: MARTIN AMBROSEJOSE R ([id number])[facility]ITAL[facility] [place] ([facility])[address] [place] [address] Hematocrit (Bld) [Volume fraction] 36.0 % Normal 35.0-47.0 [facility] Comment on above: Performed By: #### L [id number] ####Smelting Engineer: MARTIN AMBROSEJOSE R ([id number])[facility] ([facility])[address] [place] [address] Hemoglobin (Bld) [Mass/Vol] 11.5 g/dL Low 11.7-16.0 [facility] Comment on above: Performed By: #### L [id number] ####Smelting Engineer: AMRTIN AMBROSEJOSE R ([id number])[facility] ([facility])[address] [place] [address] Lymphocytes (Bld) [#/Vol] 0.8 10*3/uL Low 1.0-4.3 [facility] Comment on above: Performed By: #### L [id number] ####Smelting Engineer: MARTIN AMBROSEJOSE R ([id number])[facility] ([facility])[address] [place] [address] Lymphocytes/100 WBC (Bld) 6.4 % Low 20.0-40.0 [facility] Comment on above: Performed By: #### L [id number] ####Smelting Engineer: MARTIN AMBROSEJOSE R ([phone])[facility] ([facility])[address] [place] [address] MCH (RBC) [Entitic mass] 28.0 pg Normal 26.0-34.0 [facility] Comment on above: Performed By: #### L [id number] ####Smelting Engineer: MARTIN AMBROSEJOSE R ([id number])[facility] ([facility])[address] [place] [address] MCV (RBC) [Entitic vol] 87.5 fL Normal 80.0-98.0 S [facility] Comment on above: Performed By: #### L [id number] ####Smelting Engineer: MARTIN HUANateJOSE R ([id number])[facility] (SBHLAB)[address] Monocytes (Bld) [#/Vol] 1.1 10*3/uL High 0.0-0.8 [facility] Comment on above: Performed By: #### L [id number] ####Smelting Engineer: MARTIN HUAWILFREDO ([id number])[facility] (SBHLAB)[address] Monocytes/100 WBC (Bld) 9.0 % Normal 2.0-10.0 [facility] Comment on above: Performed By: #### L [id number] ####Smelting Engineer: MARTIN HUAWILFREDO ([id number])[facility] (SBHLAB)155 [place] [address] [place] Neutrophils (Bld) [#/Vol] 10.2 10*3/uL High 1.8-7.0 [facility] Comment on above: Performed By: #### L [id number] ####Smelting Engineer: MARTIN AMBROSEJOSE R ([id number])[facility] (SBHLAB)[address] Neutrophils/100 WBC (Bld) 83.2 % High 40.0-80.0 [facility] Comment on above: Performed By: #### L [id number] ####Smelting Engineer: MARTIN HUAGITAJOSE R ([id number])[facility] (SBHLAB)[address] [place] [address] [place] NRBC (PER 100 WBCS) BY AUTOMATED COUNT 0.0 /100 WBCs Normal 0.0-2.0 [facility] Comment on above: Performed By: #### L [id number] ####Smelting Engineer: MARTIN AMBROSEJOSE R ([id number])[facility] (SBHLAB)[address] Platelet mean volume (Bld) [Entitic vol] 8.6 fL Normal 7.4-12.4 [facility] Comment on above: Performed By: #### L [id number] ####Smelting Engineer: MARTIN REYES ([id number])[facility] (SBHLAB)[address] PLATELETS (10*3/UL) IN BLOOD AUTOMATED COUNT 278 10*3/uL Normal 140-440 [facility] Comment on above: Performed By: #### L [id number] ####Smelting Engineer: MARTIN REYES ([id number])[facility] (SBHLAB)[address] RBC (Bld) [#/Vol] 4.11 10*6/uL Normal 3.8-5.20 [facility] Comment on above: Performed By: #### L [id number] ####Smelting Engineer: MARTIN REYES ([phone])[facility] ([facility])[address] WBC (Bld) [#/Vol] 12.3 10*3/uL High 3.6-10.7 [facility] Comment on above: Performed By: #### L [id number] ####Smelting Engineer: MARTIN REYES ([phone])[facility] [place] (SBHLAB)[address] COMPLETE URINALYSISon 2022 BACTERIA (#/HPF) IN URINE Moderate Abnormal Negative [facility] Comment on above: Performed By: #### L [id number] ####Smelting Engineer: MARTIN REYES ([id number])[facility] ([facility])[address] BILIRUBIN, TOTAL PRESENCE IN URINE Negative Normal Negative [facility] Comment on above: Performed By: #### L [id number] ####Smelting Engineer: MARTIN REYES ([phone])[facility] (SBHLAB)[address] Clarity (U) Turbid Abnormal Clear [facility] Comment on above: Performed By: #### L [id number] ####Smelting Engineer: MARTIN REYES ([id number])[facility] ([facility] Color (U) Light Yellow Normal Lt. Yellow [facility] Comment on above: Performed By: #### L [id number] ####Smelting Engineer: MARTIN REYES ([phone])[facility] ([facility])[address] GLUCOSE (MG/DL) IN URINE >1,000 Abnormal Normal (<70) [facility] Comment on above: Performed By: #### L [id number] ####Smelting Engineer: MARTIN REYES ([id number])[facility] ([facility])[address] GRANULAR CASTS (#/LPF) IN URINE 0-2 Abnormal Negative [facility] Comment on above: Performed By: #### L [id number] ####Smelting Engineer: MARTIN REYES ([id number])[facility] ([facility])[address] HEMOGLOBIN PRESENCE IN URINE Negative Normal Negative [facility] Comment on above: Performed By: #### L [id number] ####Smelting Engineer: MARTIN REYES ([id number])[facility] (SBAB)[address] HYALINE CASTS (#/LPF) IN URINE SEDIMENT BY MICROSCOPY 3-5 Abnormal Negative [facility] Comment on above: Performed By: #### L [id number] ####Smelting Engineer: MARTIN REYES ([id number])[facility] ([facility] Ketones Ql (U) Negative Normal Negative [facility] Comment on above: Performed By: #### L [id number] ####Smelting Engineer: MARTIN REYES ([id number])[facility] (SBHLAB)[address] LEUKOCYTE ESTERASE PRESENCE IN URINE BY TEST STRIP 250 Sandeep/uL Abnormal Negative [facility] Comment on above: Performed By: #### L [id number] ####Smelting Engineer: MARTIN HUANateJOSE R ([id number])[facility] (SBHLAB)[address] MUCUS (#/LPF) IN URINE SEDIMENT Few Normal Negative [facility] Comment on above: Performed By: #### L [id number] ####Smelting Engineer: MARTIN HUAWILFREDO ([id number])[facility] (HLAB)[address] NITRITE PRESENCE IN URINE Positive Abnormal Negative [facility] Comment on above: Performed By: #### L [id number] ####Smelting Engineer: MARTIN AMBROSEJOSE R ([id number])[facility] (HLAB)[address] pH (U) 5.0 [pH] Normal 5.0-8.0 [facility] Comment on above: Performed By: #### L [id number] ####Smelting Engineer: MARTIN REYES ([phone])[facility] ([facility])[address] Protein (U) [Mass/Vol] 20 mg/dL Abnormal Negative [facility] Comment on above: Performed By: #### L [id number] ####Smelting Engineer: MARTIN REYES ([id number])[facility] (HLAB)[address] [place] [address] [place] RBC (#/HPF) IN URINE SEDIMENT 0-2 Normal 0-2 [facility] Comment on above: Performed By: #### L [id number] ####Smelting Engineer: MARTIN AMBROSEJOSE R ([id number])[facility] (HLAB)[address] Specific gravity (U) [Rel density] 1.020 Normal 1.005-1.030 [facility] Comment on above: Performed By: #### L [id number] ####Smelting Engineer: MARTIN REYES ([id number])[facility] [place] (SB[facility]AB)[address] SQUAMOUS EPITHELIAL CELLS (#/HPF) IN URINE SEDIMENT 3-5 Normal 3-5 [facility] Comment on above: Performed By: #### L [id number] ####Smelting Engineer: MARTIN REYES ([id number])[facility]ITALA BARBNEW [facility] (SBHLAB)[address] UROBILINOGEN (MG/DL) IN URINE Normal Normal Normal (0-1) [facility] Comment on above: Performed By: #### L [id number] ####Smelting Engineer: MARTIN AMBROSEJOSE R ([id number])[facility] (SBHLAB)[address] WBC (LEUKOCYTE) (#/HPF) IN URINE SEDIMENT 11-25 Abnormal 0-5 [facility] Comment on above: Performed By: #### L [id number] ####Smelting Engineer: MARTIN REYES ([id number])[facility] [place] (SB[facility]AB)[address] [place] [address] [place] WBC (LEUKOCYTE) CLUMPS (#/HPF) IN URINE SEDIMENT Occasional Abnormal Negative [facility] Comment on above: Performed By: #### L [id number] ####Smelting Engineer: MARTIN REYES ([id number])[facility] [place] (SB[facility]AB)[address] [place] [address] [place] YEAST (#/HPF) IN URINE Few Abnormal Negative [facility] Comment on above: Performed By: #### L [id number] ####Smelting Engineer: MARTIN REYES ([id number])[facility]BNEW [facility] (SBHLAB)[address] COMPREHENSIVE METABOLIC PANE Real 02-28-2023 Albumin [Mass/Vol] 3.7 g/dL Normal 3.5-5.0 [facility] Comment on above: Performed By: #### L AB17 ####Smelting Engineer: MARTIN REYES ([id number])[facility] (SBHLAB)[address] ALP [Catalytic activity/Vol] 119 U/L Normal 38-126 [facility] Comment on above: Performed By: #### L AB17 ####Smelting Engineer: MARTIN REYES ([id number])[facility] [place] ([facility])[address] ALT [Catalytic activity/Vol] 18 U/L Normal 0-34 [facility] Comment on above: Performed By: #### L AB17 ####Smelting Engineer: MARTIN REYES ([id number])[facility] [place] (SB[facility])[address] Anion gap [Moles/Vol] 8 mmol/L Normal 3-13 [facility] Comment on above: Performed By: #### L AB17 ####Smelting Engineer: MARTIN REYES ([id number])[facility] [place] (SB[facility])[address] AST [Catalytic activity/Vol] 24 U/L Normal 15-46 [facility] Comment on above: Performed By: #### L AB17 ####Smelting Engineer: MARTIN REYES ([id number])[facility] [place] (SB[facility])[address] Bilirubin [Mass/Vol] 0.5 mg/dL Normal 0.2-1.3 [facility] Comment on above: Performed By: #### L AB17 ####Smelting Engineer: MARTIN REYES ([id number])[facility] [place] (SB[facility])[address] [place] [address] [place] Calcium [Mass/Vol] 8.4 mg/dL Normal 8.4-10.4 [facility] Comment on above: Performed By: #### L AB17 ####Smelting Engineer: MARTIN REYES ([phone])[facility] [place] (SB[facility])[address] Chloride [Moles/Vol] 96 mmol/L Low 98-107 [facility] Comment on above: Performed By: #### L AB17 ####Smelting Engineer: MARTIN REYES ([id number])[facility] [place] (SBHLAB)[address] CO2 [Moles/Vol] 26 mmol/L Normal 22-30 [facility] Comment on above: Performed By: #### L AB17 ####Smelting Engineer: MARTIN REYES ([id number])[facility]ITAL[facility] (SBHLAB)[address] Creatinine [Mass/Vol] 1.22 mg/dL High 0.52-1.04 [facility] Comment on above: Performed By: #### L AB17 ####Smelting Engineer: MARTIN REYES ([id number])[facility] HE (SBHLAB)[address] [place] [address] GLOMERULAR FILTRATION RATE ML/MIN/1.73 SQ M.PREDICTED 45.2 mL/min/1.73m*2 Low >60.0 [facility] Comment on above: Result Comment: Calc ulation based on the Chronic Kidney Disease Epidemiology Collaboration (CKD-EPI) equation refit without adjustment for race Performed By: #### L AB17 ####Smelting Engineer: MARTIN REYES ([phone])[facility]ITAL[facility] HEBert (SBHLAB)[address] [place] [address] [place] Glucose [Mass/Vol] 483 mg/dL Critically high 70-100 [facility] Comment on above: Performed By: #### L AB17 ####Smelting Engineer: MARTIN REYES ([id number])[facility] (SBHLAB)[address] Potassium [Moles/Vol] 4.0 mmol/L Normal 3.5-5.1 [facility] Comment on above: Performed By: #### L AB17 ####Smelting Engineer: MARTIN REYES ([id number])[facility]OSNEW [facility] (SBHLAB)[address] Protein [Mass/Vol] 6.6 g/dL Normal 6.3-8.2 [facility] Comment on above: Performed By: #### L AB17 ####Smelting Engineer: MARTIN REYES ([id number])[facility]BNEW [facility] (SBHLAB)[address] Sodium [Moles/Vol] 130 mmol/L Low 135-145 [facility] Comment on above: Performed By: #### L AB17 ####Smelting Engineer: MARTIN REYES ([id number])[facility] (SBHLAB)[address] Urea nitrogen [Mass/Vol] 20 mg/dL High 7-17 [facility] Comment on above: Performed By: #### L AB17 ####Smelting Engineer: MARTIN REYES ([id number])[facility] (SBHLAB)[address] ABDOMEN PELVIS WO IV CONT [facility] 02-28-2023 CT ABDOMEN PELVIS WO IV CONTRAST Patient Name: RADHA SANDOVAL : 1945 [facility]#: [id number] Exam Date/Time: 02/28/2023 13:07 Procedure: CT ABDOMEN [...] back pain and burning with urination Normal [facility] CT Abdomen WO contraston Colonic diverticulosis without evidence of acute diverticulitis. Bilateral renal cysts, the largest cyst is on the left measuring up to 4.8 cm. Report Dictated on Electronically Signed By: Jb Ahmadi DO Electronically Signed Date/Time: 02/28/2023 1:44 PM EDT [facility] 1945 [id number] Exam Date/Time: 02/28/2023 13:07 Procedure: CT ABDOMEN [...] the aorta and iliac arteries are noted. [facility] Jb Ahmadi DO - 02/28/2023 [...] Electronically Signed Date/Time: 02/28/2023 1:[address] [facility] Radiology Study observation (narrative) [facility] alth CT Abdomen WO contrastOrdere d By: Jb Ahmadi on 02-28-2023 [facility] Work Phone: Comprehensive metabolic 1998 panelOrdered By: Azucena Li on 02-28-2023 Albumin [Mass/Vol] 3.7 g/dL 3.5 - 5.0 g/dL [facility] ALP [Catalytic activity/Vol] 119 U/L 38 - 126 U/L [facility] ALT [Catalytic activity/Vol] 18 U/L 0 - 34 U/L [facility] Anion gap [Moles/Vol] 8 mmol/L 3 - 13 mmol/L [facility] AST [Catalytic activity/Vol] 24 U/L 15 - 46 U/L [facility] Bilirubin [Mass/Vol] 0.5 mg/dL 0.2 - 1 .3 mg/dL [facility] Calcium [Mass/Vol] 8.4 mg/dL 8.4 - 10. 4 mg/dL [facility] Chloride [Moles/Vol] 96 mmol/L Low 98 - 10 7 mmol/L [facility] CO2 [Moles/Vol] 26 mmol/L 22 - 30 mmol/L [facility] Creatinine [Mass/Vol] 1.22 mg/dL High 0.52 - 1.04 mg/dL [facility] GFR/1.73 sq M.predicted MDRD (S/P/Bld) [Vol rate/Area] 45.2 mL/min/{1.73_m2} Low - PINF [facility] Comment on above: Calculation based on the Chronic Kidney Disease Epidemiology Collaboration (CKD-EPI) equation refit without adjustment for race Glucose [Mass/Vol] 483 mg/dL Critically high 70 - 1 00 mg/dL [facility] Interpretation and review of laboratory results Abnormal [facility] Potassium [Moles/Vol] 4.0 mmol/L 3.5 - 5.1 mmol/L [facility] Protein [Mass/Vol] 6.6 g/dL 6.3 - 8.2 g/dL [facility] Sodium [Moles/Vol] 130 mmol/L Low 135 - 145 mmol/L [facility] Urea nitrogen [Mass/Vol] 20 mg/dL High 7 - 17 mg/dL [facility] ED Nursing Noteon 02-28-2023 ED Nursing Note Pt presents for admission per her PCP. Was sent to get kidneys evaluated per pt. Pt endorses lower back pain and burning and pain with urination. Was recently admitted. [facility] ED Provider Noteon 3 ED Provider Note [facility] 1E MED SURG EMERGENCY DEPARTMENT ENCOUNTER [...] 12/07/2022 Performed by Avery Marshall DO at [facility] ENDOSCOPY EYE SURGERY Bilateral early ' LUNG [...] shoulder pain ergocalciferol (Vitamin D-2) 1.25 MG (22624 UT) capsule Take 1 capsule (1.25 mg) [...] Depression Moth (more content not included)... Normal [facility] POCT glucose meteron 023 Glucose [Mass/Vol] 245 mg/dL High 70 - 100 mg/dL [facility] Interpretation and review of laboratory results Abnormal [facility] Performed by: [facility], [address] [place] [address] CLIA ID: [id number] [facility] Glucose [Mass/Vol] 197 mg/dL High 70 - 100 mg/dL [facility] Interpretation and review of laboratory results Abnormal [facility] Performed by: [facility], [address] [place] [address] CLIA ID: [id number] [facility] URINE CULTUREon [...] Non-susceptible NO = No Interpretation ] Normal [facility] Comment on above: Performed By: #### L AB239 ####Smelting Engineer: ASHLEY LLANOS ([id number])[facility] ([facility] [place] [address] Urinalysis complete panel (U )on 02-28-2023 Bacteria LM.HPF (Urine sed) [#/Area] Moderate Abnormal Negative /HPF [facility] Bilirubin Ql (U) Negative Negative mg/dL [facility] Clarity (U) Turbid Abnormal Clear [facility] Color (U) Light Yellow Lt. Yellow [facility] Epithelial cells.squamous LM.HPF (Urine sed) [#/Area] 3-5 [facility] h Glucose Ql (U) >1,000 Abnormal Normal (<70) mg/dL [facility] Granular casts LM.HPF (Urine sed) [#/Area] 0-2 Abnormal Negative /LPF [facility] Hemoglobin Ql (U) Negative Negative mg/dL [facility] Hyaline casts Auto (Urine sed) [#/Area] 3-5 Abnormal Negative /LPF [facility] Interpretation and review of laboratory results Abnormal [facility] Ketones (U) [Mass/Vol] Negative Negat katherine mg/dL [facility] Leukocyte clumps LM.HPF (Urine sed) [#/Area] Occasional Abnormal Negative /HPF [facility] Leukocyte esterase Test strip Ql (U) 250 Abnormal Negative Sandeep/uL [facility] Mucus LM.HPF (Urine sed) [#/Area] Few Negative /LPF [facility] Nitrite Ql (U) Positive Abnormal Negative [facility] th pH (U) 5.0 [pH] 5.0 - 8.[address] [facility] Protein (U) [Mass/Vol] 20 mg/dL Abnormal Negative [facility] RBC LM.HPF (Urine sed) [#/Area] 0-2 [facility] Specific gravity (U) [Rel density] 1.020 1.005 - 1.030 [facility] Urobilinogen (U) [Mass/Vol] Normal Normal (0-1) mg/dL [facility] WBC LM.HPF (Urine sed) [#/Area] 11-[address] [facility] Yeast.budding LM.HPF (Urine sed) [#/Area] Few Abnormal Negative /HPF [facility] 36on 02-27-2023 36 Rx sent Normal [facility] Glucose (Bld) [Mass/Vol]on 0 02-27-2023 Glucose Blood, POC 494 mg/dL [facility] Interpretation and review of laboratory results Abnormal [facility] Office Visiton 02-27-2023 Follow-up visit [id number] Radha Sandoval 1945 F Date Provider Department Center 02/27/2023 [facility] Family History Problem Relation Age of Onset Mental illness Mother Depression Mother Heart disease Father High Blood Pressure Father Asthma Father Hypertension Father Diabetes Brother Family Status - Relation Status Age at Mother Father Brother Level of Service:11156 [place] OFFICE/OUTPATIENT ESTABLISHED MOD MDM 30-39 MIN Reason for Visit and Comments: Blood Sugar Problem [655225] Knee Pain [318980] Diarrhea [35] - Back Pain [12] Normal [facility] Progress Noteon 02-27-2023 Progress Note No fever or chills, abdomen soft. Unknown etiology. Will check CBC and CMP. Consider stool culture if symptoms continue Normal [facility] Progress Note We will check CMP today Normal [facility] Progress Note UA positive nitrites and leuks moderate blood, will start antibiotic therapy sent for culture Normal [facility] Progress Note Controlled. Continue amlodipine 10 mg daily and lisinopril 40 mg daily Normal [facility] Progress Note Will check TSH today due to recent fatigue Normal [facility] Progress Note Patient has not followed up with wound center upon visualization today wound unchanged, advised to keep area as clean as possible with frequent changes of incontinence pads Normal [facility] Progress Note Uncontrolled. Patien t having difficulties with compliance. Continue insulin regimen. Possible increased glucose due to urinary tract infection we will treat Normal [facility] Progress Note 02/27/2023 Radha Sandoval (: [...] her blood sugar today, noted In office [id number] testing 494. Urination Increased frequency, dysuria intermittently. [...] out soon. Has Maximino (son) work in [employer]. He may be able to help her [...] Lopez MD ergocalciferol (Vitamin D-2) 1.25 MG (82199 UT) capsule Take 1 capsule (1.25 mg) [...] by mouth daily. 12/08/22 Yes ELSA Arriaza JORGE meloxicam (Mobic) 7.5 MG tablet Take 1 tablet (7.5 mg) by mouth daily. 02/07/23 Yes Katiajareth Granados [employer] DEVELOPER - JORGE PARoxetine (Paxil) 20 MG tablet Take 1 tablet (20 mg) by mouth every morning. 12/08/22 Yes Katiaesther Granados [employer] - [employer] PROFESSOR potassium chlor (more content not included)... [facility] Progress Note Please see if she rodriguez s gone to ER. Call and encourage her to go if she hasn't yet. Normal [facility] Progress Note Patient was identifi ed by name and Date of . POCT glucose at [facility]-provider notified. [facility] Urinalysis macro (dipstick) panel (U)on 02-27-2023 Bilirubin, UA Moderate [facility] UA Small [facility] Glucose, UA >1,000 [facility] Interpretation and review of laboratory results Abnormal [facility] Ketones, UA Trace [facility] Leukocytes, UA Moderate [facility] th Nitrite, UA Positive [facility] pH, UA 6.0 [facility] Protein, UA Trace [facility] Spec Grav, UA 1.010 [facility], UA 0.2 [facility] al[facility] 36on 02-24-2023 36 S: Patient spoke rené grover [facility] nurse regarding: Patient needs refill on Novolog. She is out of medication. B: Onset of symptoms/concern: today A: Pt states she needs refill of her Novolog pen, she is out. R: Pt is aware of message to provider for refill. Allergies and pharmacy verified. house calls nurse paged. Per YAZMIN Gracia Novolog Flexpen 16 units QID, 30 days, 0 refills. Called to [facility], order pended on chart. Reason for Disposition [1] Prescription refill request for ESSENTIAL medicine (i.e., likelihood of harm to patient if not taken) AND [2] triager unable to refill per department policy Protocols used: Medication Refill and Renewal [facility] 36 Patient is out of medication. [...] prior to picking up the medication: Yes [place] [address] Noted. Agree with disposition. [place] [address] Sent a secure chat edie [employer] she is working on the [facility]. [facility] 36 S: [facility] [place] with complaint of elevated blood sugar B: [...] diabetes) Protocols used: Diabetes - High Blood Iheas-YQTAI-[facility]REssent[facility] 36on 02-23-2023 36 faxed [place] [address] Not quite sure what that was all about but I guess I did which she told me to do instructions were kind of difficult to understand [place] [address] Re-printing and plac ing on your desk, need to resign next to original signature with the date and then initial next to Faby with the date. [facility] 36 Faxed on 02/17/23 [facility] 36 S: Patient spoke wit h [facility] nurse regarding High Blood Sugar number [...] seen Protocols used: Diabetes - High Blood Kalfn-[id number] [facility] 36 Name of caller: Paula Contact phone number: [phone] Relationship to Patient: [facility] Diabetic Provider: Dr. Lopez Practice: [facility] Chief Complaint/Reason for Call: Paula from [facility] Diabetic states that they did receive Rx for Freestyle Evin, however it was not accepted due to the correction on the sign date. Paula is requesting that we please resend the Rx, have Provider resign it, and have the Drs initial next to the date as well. Rx can be sent to #[phone]. Please advise. Best time of day caller can be reached: Any Patient advised that office/PCP has 24-48 business hours to return their call: No [facility] 36on 02-17-2023 36 Noted. Fax put in burt x to go out [facility] 36 Name of caller: Colette bert Contact phone number: [phone] Relationship to Patient: [facility] Provider: Dr. Lopez Practice: [facility] Chief Complaint/Reason for Call: Caller wanted to follow up regarding request for pt diabetic continuous glucose meter that was faxed on 02.02.2023. Caller stated they received the Rx but the Rx was incomplete. Caller would like to ask office to re write with doctors initial and fax again to: [phone]. Please advise. Thank you. Best time of day caller can be reached: Any Patient advised that office/PCP has 24-48 business hours to return their call: Yes [facility] PATINSon 02-15-2023 PATINS Return in 1 week rené Magallanes If you have any questions or concerns, please call our wound center at [phone] or [phone]. Offloading Try to avoid pressure and sheering [...] as diet tolerates, to help improve healing. [facility] 36on 02-14-2023 36 Notified. [place] [address] Rx sent [place] [address] Spoke with patient s he found the bottle and it is the baclofen [place] [address] The only medications on her list and on her history it would have been used for cramps in her legs would have been her Mirapex and that 1 was just refilled in December for baclofen which is an actual muscle relaxer and that was refilled in December other than those I do not know what she would be talking about [place] [address] S: Patient spoke rené grover [facility] nurse regarding out of medication for [...] policy Protocols used: Medication Refill and Renewal [id number] [facility] Office Visiton 02-07-2023 Follow-up visit [id number] Radha Sandoval 1945 F Date Provider Department Center 02/07/2023 [id number] [facility] Family History Problem Relation Age of Onset Mental illness Mother Depression Mother Heart disease Father High Blood Pressure Father Asthma Father Hypertension Father Diabetes Brother Family Status - Relation Status Age at Mother Father Brother Level of Service:42782 OK OFFICE/OUTPATIENT ESTABLISHED LOW MDM 20-29 MIN Reason for Visit and Comments: Sore [[id number]] - On buttocks-getting worse Normal [facility] Progress Noteon 02-07-2023 Progress Note Chronic. Refill mobic. Normal [facility] Progress Note Avoid pressure to ar ea, avoid friction, keep area as dry as possible. Refer to wound clinic. Normal [facility] Progress Note 02/07/2023 Radha Sandoval (: 1945) is a 77 y.o. female , Established patient, here for evaluation of the following chief complaint(s): Sore (On buttocks-getting worse) ASSESSMENT/PLAN: 1. Wound of right buttock, subsequent encounter Assessment & Plan: Avoid pressure to area, avoid friction, keep area as dry as possible. Refer to wound clinic. Orders: - [facility] 2. Chronic left [...] Arriaza CNP ergocalciferol (Vitamin D-2) 1.25 MG (99766 UT) capsule Take 1 capsule (1.25 mg) [...] note. ELSA Arriaza CNP 02/07/2023 12:53 PM [facility] Progress Note Patient was identifi ed by name and Date of . PHARMACY VERIFIED WITH PATIENT[facility] [place]. Normal [facility] 36on 02-06-2023 36 S: Pt calling [...] splenectomy, organ transplant, chronic steroids) Protocols used: [id number] Normal [facility] Basic metabolic 1998 panelon 12-07-2022 Anion gap [Moles/Vol] 4 mmol/L 3 - 13 mmol/L [facility] Calcium [Mass/Vol] 7.2 mg/dL Low 8.4 - 10. 4 mg/dL [facility] Chloride [Moles/Vol] 110 mmol/L High 98 - 10 7 mmol/L [facility] CO2 [Moles/Vol] 24 mmol/L 22 - 30 mmol/L [facility] Creatinine [Mass/Vol] 0.63 mg/dL 0.52 - 1.04 mg/dL [facility] GFR/1.73 sq M.predicted MDRD (S/P/Bld) [Vol rate/Area] - PINF [facility] Comment on above: Calculation based on the Chronic Kidney Disease Epidemiology Collaboration (CKD-EPI) equation refit without adjustment for race Glucose [Mass/Vol] 182 mg/dL High 70 - 100 mg/dL [facility] Interpretation and review of laboratory results Abnormal [facility] Potassium [Moles/Vol] 3.3 mmol/L Low 3.5 - 5.1 mmol/L [facility] Sodium [Moles/Vol] 137 mmol/L 135 - 145 mmol/L [facility] Urea nitrogen [Mass/Vol] 14 mg/dL 7 - 17 mg/dL [facility] CBC panel Auto (Bld)Ordered By: Wendy Bruce on 12-07-2022 Erythrocyte distribution width (RBC) [Ratio] 13.8 % 11.5 - 14.5 % [facility] Hematocrit (Bld) [Volume fraction] 33.0 % Low 35.0 - 47.0 % [facility] Hemoglobin (Bld) [Mass/Vol] 10.6 g/dL Low 11.7 - 16.0 g/dL [facility] Interpretation and review of laboratory results Abnormal [facility] MCH (RBC) [Entitic mass] 29.3 pg 26.0 - 34.[address] [facility] MCHC (RBC) [Mass/Vol] 32.2 % 32.0 - 36.0 % [facility] MCV (RBC) [Entitic vol] 90.8 fL 80.0 - 98.[address] [facility] Platelet mean volume (Bld) [Entitic vol] 8.1 fL 7.4 - 12.[address] [facility] Platelets (Bld) [#/Vol] 230 10*3/uL 140 - 440 10*3/uL [facility] RBC (Bld) [#/Vol] 3.63 10*6/uL Low 3.8 - 5.20 10*6/uL [facility] WBC (Bld) [#/Vol] 10.7 10*3/uL 3.6 - 10.7 10*3/uL [facility] Comprehensive metabolic 1998 panelon 12-07-2022 Albumin [Mass/Vol] 3.4 g/dL Low 3.5 - 5.0 g/dL [facility] ALP [Catalytic activity/Vol] 96 U/L 38 - 126 U/L [facility] ALT [Catalytic activity/Vol] 15 U/L 0 - 34 U/L [facility] Anion gap [Moles/Vol] 4 mmol/L 3 - 13 mmol/L [facility] AST [Catalytic activity/Vol] 40 U/L 15 - 46 U/L [facility] Bilirubin [Mass/Vol] 0.5 mg/dL 0.2 - 1 .3 mg/dL [facility] Calcium [Mass/Vol] 7.5 mg/dL Low 8.4 - 10. 4 mg/dL [facility] Chloride [Moles/Vol] 105 mmol/L 98 - 10 7 mmol/L [facility] CO2 [Moles/Vol] 27 mmol/L 22 - 30 mmol/L [facility] Creatinine [Mass/Vol] 0.76 mg/dL 0.52 - 1.04 mg/dL [facility] GFR/1.73 sq M.predicted MDRD (S/P/Bld) [Vol rate/Area] 79.8 mL/min/{1.73_m2} - PINF [facility] Comment on above: Calculation based on the Chronic Kidney Disease Epidemiology Collaboration (CKD-EPI) equation refit without adjustment for race Glucose [Mass/Vol] 188 mg/dL High 70 - 100 mg/dL [facility] Interpretation and review of laboratory results Abnormal [facility] Potassium [Moles/Vol] 3.4 mmol/L Low 3.5 - 5.1 mmol/L [facility] Protein [Mass/Vol] 6.2 g/dL Low 6.3 - 8.2 g/dL [facility] Sodium [Moles/Vol] 136 mmol/L 135 - 145 mmol/L [facility] Urea nitrogen [Mass/Vol] 10 mg/dL 7 - 17 mg/dL [facility] Hemoglobin (Bld) [Mass/Vol]O rdered By: Humphrey Juarez on 12-07-2022 Hematocrit (Bld) [Volume fraction] 33.8 % Low 35.0 - 47.0 % [facility] Interpretation and review of laboratory results Abnormal [facility] Hemoglobin (Bld) [Mass/Vol]o n 12-07-2022 Hematocrit (Bld) [Volume fraction] 33.6 % Low 35.0 - 47.0 % [facility] Interpretation and review of laboratory results Abnormal [facility] Hemoglobin (Bld) [Mass/Vol]O rdered By: Rosey Viera on 12-07-2022 Hematocrit (Bld) [Volume fraction] 32.0 % Low 35.0 - 47.0 % [facility] Interpretation and review of laboratory results Abnormal [facility] Laboratory - Chemistry and C hemistry - challengeon 12-07-2022 Magnesium [Mass/Vol] 1.3 mg/dL Low 1.6 - 2 .3 mg/dL [facility] Glucose [Mass/Vol] 179 mg/dL High 70 - 100 mg/dL [facility] Glucose [Mass/Vol] 158 mg/dL High 70 - 100 mg/dL [facility] Glucose [Mass/Vol] 160 mg/dL High 70 - 100 mg/dL [facility] Laboratory - Hematology and Cell countsOrdered By: Humphrey Juarez on 12-07-2022 Hemoglobin (Bld) [Mass/Vol] 10.9 g/dL Low 11.7 - 16.0 g/dL [facility] - Hematology and Cell countson 12-07-2022 Hemoglobin (Bld) [Mass/Vol] 11.0 g/dL Low 11.7 - 16.0 g/dL [facility] - Hematology and Cell countsOrdered By: Rosey Viera on 12-07-2022 Hemoglobin (Bld) [Mass/Vol] 10.4 g/dL Low 11.7 - 16.0 g/dL [facility] Magnesium [Mass/Vol]on 12-07 Interpretation and review of laboratory results Abnormal [facility] No Panel Informationon 12-07 Interpretation and review of laboratory results Abnormal [facility] Performed by: [facility], [address] [place] [id number] CLIA ID: [id number] [facility] Interpretation and review of laboratory results Abnormal [facility] Performed by: [facility], [address] [place] [address] CLIA ID: [id number] [facility] Interpretation and review of laboratory results Abnormal [facility] Performed by: [facility], [address] [place] [address] CLIA ID: [id number] [facility] Basic metabolic 1998 panelon 12-06-2022 Anion gap [Moles/Vol] 2 mmol/L Low 3 - 13 mmol/L [facility] Calcium [Mass/Vol] 7.9 mg/dL Low 8.4 - 10. 4 mg/dL [facility] Chloride [Moles/Vol] 105 mmol/L 98 - 10 7 mmol/L [facility] CO2 [Moles/Vol] 26 mmol/L 22 - 30 mmol/L [facility] Creatinine [Mass/Vol] 0.68 mg/dL 0.52 - 1.04 mg/dL [facility] GFR/1.73 sq M.predicted MDRD (S/P/Bld) [Vol rate/Area] 88.7 mL/min/{1.73_m2} - PINF [facility] Comment on above: Calculation based on the Chronic Kidney Disease Epidemiology Collaboration (CKD-EPI) equation refit without adjustment for race Glucose [Mass/Vol] 169 mg/dL High 70 - 100 mg/dL [facility] Interpretation and review of laboratory results Abnormal [facility] Potassium [Moles/Vol] 3.5 mmol/L 3.5 - 5.1 mmol/L [facility] Sodium [Moles/Vol] 134 mmol/L Low 135 - 145 mmol/L [facility] Urea nitrogen [Mass/Vol] 18 mg/dL High 7 - 17 mg/dL [facility] CBC panel Auto (Bld)Ordered By: Donavan Hernandez on 12-06-2022 Erythrocyte distribution width (RBC) [Ratio] 13.7 % 11.5 - 14.5 % [facility] Hematocrit (Bld) [Volume fraction] 33.4 % Low 35.0 - 47.0 % [facility] Hemoglobin (Bld) [Mass/Vol] 11.1 g/dL Low 11.7 - 16.0 g/dL [facility] Interpretation and review of laboratory results Abnormal [facility] MCH (RBC) [Entitic mass] 29.7 pg 26.0 - 34.[address] [facility] MCHC (RBC) [Mass/Vol] 33.2 % 32.0 - 36.0 % [facility] MCV (RBC) [Entitic vol] 89.5 fL 80.0 - 98.[address] [facility] Platelet mean volume (Bld) [Entitic vol] 8.4 fL 7.4 - 12.[address] [facility] Platelets (Bld) [#/Vol] 233 10*3/uL 140 - 440 10*3/uL [facility] RBC (Bld) [#/Vol] 3.73 10*6/uL Low 3.8 - 5.20 10*6/uL [facility] WBC (Bld) [#/Vol] 9.8 10*3/uL 3.6 - 10.7 10*3/uL [facility] Hemoglobin (Bld) [Mass/Vol]o n 12-06-2022 Hematocrit (Bld) [Volume fraction] 36.6 % 35.0 - 47.0 % [facility] Interpretation and review of laboratory results Normal [facility] Hematocrit (Bld) [Volume fraction] 34.3 % Low 35.0 - 47.0 % [facility] Interpretation and review of laboratory results Abnormal [facility] Hemoglobin (Bld) [Mass/Vol]O rdered By: Lizeth Mckeon on 12-06-2022 Hematocrit (Bld) [Volume fraction] 33.9 % Low 35.0 - 47.0 % [facility] Interpretation and review of laboratory results Abnormal [facility] Iron and Iron binding capaci ty panelon 12-06-2022 Interpretation and review of laboratory results Normal [facility] Iron [Mass/Vol] 87 ug/dL 37 - 170 ug/dL [facility] Iron binding capacity [Mass/Vol] 298 ug/dL 261 - 497 ug/dL [facility] Iron saturation [Mass fraction] 29 % 15 - 50 % [facility] - Chemistry and C hemistry - challengeon 12-06-2022 Glucose [Mass/Vol] 183 mg/dL High 70 - 100 mg/dL [facility] Glucose [Mass/Vol] 258 mg/dL High 70 - 100 mg/dL [facility] Glucose [Mass/Vol] 238 mg/dL High 70 - 100 mg/dL [facility] Glucose [Mass/Vol] 160 mg/dL High 70 - 100 mg/dL [facility] Laboratory - Coagulationon 0 12-06-2022 aPTT Coag (PPP) [Time] 25.4 s 20.0 - 30.[address] [facility] INR Coag (PPP) [Relative time] 1.0 {INR} 0.9 - 1.1 [facility] Comment on above: Recommended Anticoag ulant [...] 11.2 s 9.0 - [address] [facility] - Hematology and Cell countson 12-06-2022 Hemoglobin (Bld) [Mass/Vol] 12.0 g/dL 11.7 - 16.0 g/dL [facility] Hemoglobin (Bld) [Mass/Vol] 11.3 g/dL Low 11.7 - 16.0 g/dL [facility] - Hematology and Cell countsOrdered By: Lizeth Mckeon on 12-06-2022 Hemoglobin (Bld) [Mass/Vol] 11.0 g/dL Low 11.7 - 16.0 g/dL [facility] No Panel Informationon 12-06 Interpretation and review of laboratory results Abnormal [facility]: [facility], [address] [facility] [address] CLIA ID: [id number] [facility] Interpretation and review of laboratory results Abnormal [facility]formed by: [facility], [address] [address] CLIA ID: [id number] [facility] Interpretation and review of laboratory results Abnormal [facility]formed by: [facility], [address] [address] CLIA ID: [id number] [facility] Interpretation and review of laboratory results Normal [facility] Interpretation and review of laboratory results Abnormal [facility] Performed by: [facility], [address] [address] CLIA ID: [id number] [facility] Basic metabolic 1998 panelon 12-05-2022 Anion gap [Moles/Vol] 5 mmol/L 3 - 13 mmol/L [facility] Calcium [Mass/Vol] 8.7 mg/dL 8.4 - 10. 4 mg/dL [facility] Chloride [Moles/Vol] 102 mmol/L 98 - 10 7 mmol/L [facility] CO2 [Moles/Vol] 29 mmol/L 22 - 30 mmol/L [facility] Creatinine [Mass/Vol] 0.91 mg/dL 0.52 - 1.04 mg/dL [facility] GFR/1.73 sq M.predicted MDRD (S/P/Bld) [Vol rate/Area] 64.3 mL/min/{1.73_m2} - PINF [facility] Comment on above: Calculation based on the Chronic Kidney Disease Epidemiology Collaboration (CKD-EPI) equation refit without adjustment for race Glucose [Mass/Vol] 260 mg/dL High 70 - 100 mg/dL [facility] Interpretation and review of laboratory results Abnormal [facility] Potassium [Moles/Vol] 4.0 mmol/L 3.5 - 5.1 mmol/L [facility] Sodium [Moles/Vol] 136 mmol/L 135 - 145 mmol/L [facility] Urea nitrogen [Mass/Vol] 26 mg/dL High 7 - 17 mg/dL [facility] Blood type and Crossmatch pa rodney (Bld)on 12-05-2022 ABO group Nom (Bld) O [facility] Blood group antibody screen GEL Ql Negative [facility] D Ag Ql (RBC) Positive [facility] CBC W Auto Differential pane l (Bld)Ordered By: Clayton Lozano on 12-05-2022 Basophils (Bld) [#/Vol] 0.1 10*3/uL 0.0 - 0.2 10*3/uL [facility] Basophils/100 WBC (Bld) 0.7 % 0.0 - 2.0 % [facility] Eosinophils (Bld) [#/Vol] 0.2 10*3/uL 0.0 - 0.5 10*3/uL [facility] Eosinophils/100 WBC (Bld) 2.0 % 1.0 - 6.0 % [facility] Erythrocyte distribution width (RBC) [Ratio] 13.9 % 11.5 - 14.5 % [facility] Hematocrit (Bld) [Volume fraction] 39.3 % 35.0 - 47.0 % [facility] Hemoglobin (Bld) [Mass/Vol] 12.9 g/dL 11.7 - 16.0 g/dL [facility] Interpretation and review of laboratory results Abnormal [facility] Lymphocytes (Bld) [#/Vol] 1.8 10*3/uL 1.0 - 4.3 10*3/uL [facility] Lymphocytes/100 WBC (Bld) 14.3 % Low 20.0 - 40.0 % [facility] MCH (RBC) [Entitic mass] 29.5 pg 26.0 - 34.[address] [facility] MCHC (RBC) [Mass/Vol] 32.8 % 32.0 - 36.0 % [facility] MCV (RBC) [Entitic vol] 89.8 fL 80.0 - 98.[address] [facility] Monocytes (Bld) [#/Vol] 1.0 10*3/uL High 0.0 - 0.8 10*3/uL [facility] Monocytes/100 WBC (Bld) 7.6 % 2.0 - 10.0 % [facility] Neutrophils (Bld) [#/Vol] 9.4 10*3/uL High 1.8 - 7.0 10*3/uL [facility] Neutrophils/100 WBC (Bld) 75.4 % 40.0 - 80.0 % [facility] Nucleated RBC/100 WBC (Bld) [Ratio] 0.1 % [facility] Platelet mean volume (Bld) [Entitic vol] 8.6 fL 7.4 - 12.[address] [facility] Platelets (Bld) [#/Vol] 271 10*3/uL 140 - 440 10*3/uL [facility] RBC (Bld) [#/Vol] 4.37 10*6/uL 3.8 - 5.20 10*6/uL [facility] WBC (Bld) [#/Vol] 12.5 10*3/uL High 3.6 - 10.7 10*3/uL [facility] CBC panel Auto (Bld)on 12-05 Erythrocyte distribution width (RBC) [Ratio] 13.7 % 11.5 - 14.5 % [facility] Hematocrit (Bld) [Volume fraction] 37.9 % 35.0 - 47.0 % [facility] Hemoglobin (Bld) [Mass/Vol] 12.3 g/dL 11.7 - 16.0 g/dL [facility] Interpretation and review of laboratory results Abnormal [facility] MCH (RBC) [Entitic mass] 29.2 pg 26.0 - 34.[address] [facility] MCHC (RBC) [Mass/Vol] 32.4 % 32.0 - 36.0 % [facility] MCV (RBC) [Entitic vol] 90.1 fL 80.0 - 98.[address] [facility] Platelet mean volume (Bld) [Entitic vol] 8.3 fL 7.4 - 12.[address] [facility] Platelets (Bld) [#/Vol] 244 10*3/uL 140 - 440 10*3/uL [facility] RBC (Bld) [#/Vol] 4.21 10*6/uL 3.8 - 5.20 10*6/uL [facility] WBC (Bld) [#/Vol] 11.6 10*3/uL High 3.6 - 10.7 10*3/uL [facility] CT Abdomen and Pelvis W cont rast Anna 12-05-2022 The etiology of the symptoms is not certain. No extravasation of contrast visualized. Report Dictated on Electronically Signed By: Toñito Chandra Electronically Signed Date/Time: 12/05/2022 3:55 PM EDT [facility] [place] [employer] Patient Name: RADHA SANDOVAL : 1945 [...] soft tissues. Abdominal wall:Ventral hernia fat only. [facility] RADIOLOGY SYSTEM Toñito Chandra MD - 12/05/2022 Patient [...] Electronically Signed Date/Time: 12/05/2022 3:[address] [facility] Radiology Study observation (narrative) [facility] alth CT Abdomen and Pelvis W cont rast IVOrdered By: Toñito Chandra on 12-05-2022 [facility] Work Phone: Hemoglobin (Bld) [Mass/Vol]o n 12-05-2022 Interpretation and review of laboratory results Normal [facility] Hepatic function 2000 panelo n 12-05-2022 Albumin [Mass/Vol] 4.0 g/dL 3.5 - 5.0 g/dL [facility] ALP [Catalytic activity/Vol] 107 U/L 38 - 126 U/L [facility] ALT [Catalytic activity/Vol] 16 U/L 0 - 34 U/L [facility] AST [Catalytic activity/Vol] 25 U/L 15 - 46 U/L [facility] Bilirubin [Mass/Vol] 0.9 mg/dL 0.2 - 1 .3 mg/dL [facility] Bilirubin.conjugated [Mass/Vol] 0.0 mg/dL 0.0 - 0.3 mg/dL [facility] Protein [Mass/Vol] 7.2 g/dL 6.3 - 8.2 g/dL [facility] Laboratory - Chemistry and C hemistry - challengeon 12-05-2022 Glucose [Mass/Vol] 196 mg/dL High 70 - 100 mg/dL [facility] Glucose [Mass/Vol] 215 mg/dL High 70 - 100 mg/dL [facility] Lipase [Catalytic activity/Vol] 43 U/L 23 - 300 U/L [facility] Laboratory - Coagulationon 0 12-05-2022 aPTT Coag (PPP) [Time] 22.1 s 20.0 - 30.[address] [facility] INR Coag (PPP) [Relative time] 1.0 {INR} 0.9 - 1.1 [facility] Comment on above: Recommended Anticoag ulant [...] 11.0 s 9.0 - [address] [facility] - Hematology and Cell countson 12-05-2022 Hemoglobin (Bld) [Mass/Vol] 12.2 g/dL 11.7 - 16.0 g/dL [facility] No Panel Informationon 12-05 Interpretation and review of laboratory results Abnormal [facility]: [facility], [address] [address] CLIA ID: [id number] [facility] Interpretation and review of laboratory results Normal [facility] Interpretation and review of laboratory results Abnormal [facility]formed by: [facility], [address] [address] CLIA ID: [id number] [facility] Interpretation and review of laboratory results Normal [facility] XR CHEST (2 VW)on 09-09-2021 [facility]: [id number] ACCESSION EXAM DATE/TIME PROCEDURE ORDERING PROVIDER [id number] 09/09/2021 10:10 EDT CR Chest PA & LAT MD LOPEZ DARRELL LEROY CPT code 91055 Reason For Exam (CR Chest PA & [...] infiltrate or effusion. Report Dictated on Workstation: [id number] --- Final --- Dictating Physician: MD HELTON YUN ROBERT Signed Date and Time: 09/09/2021 3:48 pm Signed by: MD HELTON YUN ROBERT Transcribed Date and Time: 09/09/2021 3:49 [facility] Donato Helton - 09/09/2021 Patient Name: RADHA SANDOVAL Diagnostic Radiology ACCESSION EXAM DATE/TIME PROCEDURE ORDERING PROVIDER [id number] 09/09/2021 10:10 EDT CR Chest PA & LAT MD LOPEZ DARRELL LEROY CPT code 86806 Reason For Exam (CR Chest PA & [...] infiltrate or effusion. Report Dictated on Workstation: [id number] --- Final --- Dictating Physician: MD HELTON YUN ROBERT Signed Date and Time: 09/09/2021 3:48 pm Signed by: MD SUNITHA, DONATO FUENTES Transcribed Date and Time: 09/09/2021 3:49 [email or web address] Work Phone: Radiology Study observation (narrative) [email or web address] Work Phone: XR CHEST (2 VW)Ordered By: Haven Helton on 09-09-2021 [email or web address] Work Phone: VL PVR Arterial Doppler Lwr w/o Exerciseon 08-25-2021 VL PVR Arterial Doppler Lwr w/o Exercise Patient [facility]: [id number] Ultrasound ACCESSION EXAM DATE/TIME PROCEDURE ORDERING PROVIDER [id number] 08/25/2021 10:09 EST VL PVR Arterial Doppler [id number] -SOMMER CHATTERJEE Lwr w/o Exercise CPT code 38502 Reason For Exam (VL PVR Arterial Doppler Lwr w/o Exercise) PVD with ulcer of left leg Report [facility] -- Multilevel Lower Extremity Arterial Evaluation Report Patient Radha Sandoval : 1945 Study 08/25/2021 Name: Eduardo (75yrs) Date: Age: 75 Account: [id number] Gender: F Loc: BP: Ordering Physician: Sommer Chatterjee Cartridge Filler: Clayton Lr RVT Interpreting Physician: Wicho Morales MD -- Location: [facility] -- Indications: PVD with ulcer. -- Conclusions [...] supine position. Images were obtained using a [employer] vascular ultrasound machine. -- Arterial pressure indices: [...] WICHO MORALES Cardiovascular ACCESSION EXAM DATE/TIME PROCEDURE [id number] 08/25/2021 10:09 EST VL PVR Arterial Doppler Lwr w/o Exercise CPT code 99849 Reason For Exam (VL PVR Arterial Doppler Lwr w/o Exercise) PVD with ulcer of left leg Report [facility] -- Multilevel Lower Extremity Arterial Evaluation Report Patient Radha Sandoval : 1945 Study 08/25/2021 Name: Eduardo (75yrs) Date: Age: 75 Account: [id number] Gender: F Loc: BP: Cardiovascular Report Ordering Physician: Sommer Chatterjee Cartridge Filler: Clayton Lr RVT Interpreting Physician: Wicho Morales MD -- Location: [facility] -- Indications: PVD with ulcer. -- Conclusions [...] PVR wave (more content not included)... Normal [facility] CULT/STAIN - AEROBIC AND KENNA Tyler [...] <= 2 S Amoxicillin/Clavulanic Acid(LAVINIA) R Normal [facility] Comment on above: Performed By: #### Flori LIM #### [address] [id number] [id number] Culture, Anaerobic and Aerob icon 08-07-2021 Aerobic Culture Mixed skin amandeep present. No Pseudomonas aeruginosa isolated. No beta-hemolytic streptococcus isolated. [facility] Staphylococcus aureus Ab[facility] Aerobic Culture Few [facility] Aerobic Culture Citrobacter freundii [facility] Few For serious infections outside of the urinary tract, third generation cephalosporins may not be effective, even if test results indicate the organism is [facility]. [facility] Ana[facility] Culture No growth of anaerob es at 5 days. [facility] Gram Stain Result No polymorphonuclear cells/lpf. Rare gram positive cocci in clusters. [facility] Interpretation and review of laboratory results Abnormal [facility] Test Performed by [facility], [address] [place] [address] LAB [facility] CR Chest PA/LATon 04-22-2021 CR Chest PA/LAT Patient Name: RADHA SANDOVAL Diagnostic Radiology ACCESSION EXAM DATE/TIME PROCEDURE ORDERING PROVIDER [id number] 04/22/2021 11:32 EDT CR Chest PA and LAT MD LOPEZ DARRELL LEROY CPT code 00590 Reason For Exam (CR Chest PA and [...] Transcribed Date and Time: 04/22/2021 11:47 Normal [facility] MG Breast Tomosynthesis Scr Blon 04-22-2021 MG Breast Tomosynthesis Scr Bl Patient Name: RADHA SANDOVAL Mammography ACCESSION EXAM DATE/TIME PROCEDURE ORDERING PROVIDER [id number] 04/22/2021 11:11 EDT MG Breast Tomosynthesis MD LOPEZ DARRELL BI John AGRAWAL CPT code 44907 51677 Reason For Exam (MG Breast Tomosynthesis BI [...] images: BB's = Nipples; skin lesions Open [place] = Palpable Line = Scar 2D digital [...] am Signed by: MD HELTON YUN ROBERT [facility] OT Bone Density DEXA Axial S manuel 04-22-2021 OT Bone Density DEXA Axial Skeleton Patient Name: RADHA SANDOVAL Bone Density ACCESSION EXAM DATE/TIME PROCEDURE ORDERING PROVIDER [id number] 04/22/2021 10:45 EDT OT Bone Density DEXA MD LOPEZ DARRELL Axial Skeleton WICHITA CPT code 65459 Reason For Exam (OT Bone Density DEXA Axial Skeleton) menopause Report DXA BONE DENSITOMETRY: CLINICAL INDICATION: Asymptomatic post-menopausal status COMPARISON: None TECHNIQUE: Quantitative bone mineral densitometry of the hip and lumbar spine was performed with a dual energy x-ray observed absorptiometry device - HoloID8-Mobile W. Regions of interest were obtained through [...] recommendations for prevention of bone loss include: 2698-8076 mg calcium intake per day for adults [...] and Follow-up. Christa of [employer] Evidence-Based Summaries. [facility] [employer]. 2017 Bone Density Report Report Dictated on Final Dictating Physician: MD DELVALLE LAUREN B Signed Date and Time: 04/23/2021 8:00 am Signed by: MD DELVALLE LAUREN B Transcribed Date and Time: 04/23/2021 8:01 Normal [facility] ECHO Complete 2D W Doppler W ColorOrdered By: Shiv Lopez on 10-07-2020 TRANSTHORACIC ECHOCARDIOGRAM PATIENT: Radha Sandoval STUDY DATE: 10/07/2020 : 1945 AGE: 75 HT/WT: 170.2 cm (67 117.9 kg in) (259.4 lb) GENDER: F BP: 144 / 89 LOCATION: [facility] PATIENT [facility] STATUS: *ORDERING PHYSICIAN: * Shiv Lopez *READING PHYSICIAN: * Stuart Grier, *COMMUNICATIONS MEDIA PROFESSOR: * Lizzette Dejesus MD RD, AE -- [...] LV ID, ES (more content not included)... [email or web address] Work Phone: Jone, [facility] Incoming Cardiology Results From [facility] - 10/07/2020 3:44 PM EDT TRANSTHORACIC ECHOCARDIOGRAM PATIENT: Radha Sandoval STUDY DATE: 10/07/2020 : 1945 AGE: 75 HT/WT: 170.2 cm (67 117.9 kg in) (259.4 lb) GENDER: F BP: 144 / 89 LOCATION: [facility] PATIENT [facility] STATUS: *ORDERING PHYSICIAN: * Shiv Lopez *READING PHYSICIAN: * Stuart Grier, *COMMUNICATIONS MEDIA PROFESSOR: * Lizzette Dejesus MD RD, AE -- [...] LV end-diastolic volum (more content not included)... [email or web address] Work Phone: Echo Complete w/wo Contrasto n 10-07-2020 Echo Complete w/wo Contrast Patient Name: RADHA SANDOVAL Ultrasound ACCESSION EXAM DATE/TIME PROCEDURE ORDERING PROVIDER [id number] 10/07/2020 14:50 EDT Echo Complete w/wo MD JOHN, SHIV AGRAWAL Reason For Exam (Echo Complete w/wo Contrast) edema Report TRANSTHORACIC ECHOCARDIOGRAM PATIENT: Radha Sandoval STUDY DATE: 10/07/2020 : 1945 AGE: 75 HT/WT: 170.2 cm (67 117.9 kg in) (259.4 lb) GENDER: F BP: 144 / 89 LOCATION: [facility] PATIENT [facility] STATUS: *ORDERING PHYSICIAN: * Shiv Lopez *READING PHYSICIAN: * Stuart Grier, *COMMUNICATIONS MEDIA PROFESSOR: * Lizzette Dejesus MD RDCS, AE -- [...] ED 0.31 (more content not included)... Normal [facility] Basic Metabolic Panelon 01-17 Anion gap [Moles/Vol] 10 mmol/L [place], [place] Calcium [Mass/Vol] 8.7 mg/dL 8.4 - 10. 4 mg/dL [place] Chloride [Moles/Vol] 101 mmol/L 98 - 10 7 mmol/L [place] CO2 [Moles/Vol] 27 mmol/L 22 - 30 mmol/L [place] Creatinine [Mass/Vol] 1.13 mg/dL 0.52 - 1.25 mg/dL [place] EGFR IF NonAfrican Filipino 46.9 mL/min >60 [place] Comment on above: Source- MDRD equatio n with creatinine calibration to IDMS(NKDEP) eGFR not recommended for drug dose adjustment GFR/1.73 sq M predicted among blacks MDRD (S/P/Bld) [Vol rate/Area] 56.8 mL/min/{1.73_m2} >60 [place] Glucose [Mass/Vol] 139 mg/dL High 70 - 100 mg/dL [place] Interpretation and review of laboratory results Abnormal [place] Potassium [Moles/Vol] 4.3 mmol/L 3.5 - 5.1 mmol/L [place] Sodium [Moles/Vol] 137 mmol/L 135 - 145 mmol/L [place] Urea nitrogen [Mass/Vol] 18 mg/dL 7 - 20 mg/dL [place] CBCon 02-01-2019 Erythrocyte distribution width (RBC) [Ratio] 13.4 % 11.5 - 14.5 % [place] Hematocrit (Bld) [Volume fraction] 35.1 % 35 - 47 % [place] Hemoglobin (Bld) [Mass/Vol] 11.8 g/dL 11.7 - 16 g/dL [place] MCH (RBC) [Entitic mass] 30.2 pg 26 - 34 pg [place] MCHC (RBC) [Mass/Vol] 33.8 % 32 - 36 % [place] MCV (RBC) [Entitic vol] 89.4 fL 79 - 98 fL [place], [place] Platelet mean volume (Bld) [Entitic vol] 7.6 fL 7.4 - 10.4 fL [place] Platelets (Bld) [#/Vol] 419 10*3/uL 140 - 440 10*3/uL [place] RBC (Bld) [#/Vol] 3.92 10*6/uL 3.8 - 5.2 10*6/uL [place] WBC (Bld) [#/Vol] 9.4 10*3/uL 3.6 - 10.7 10*3/uL [place] CT CERVICAL SPINE WO LAURA Banner 02-01-2019 [facility], [facility] - 02/01/2019 7:24 PM EDT Patient Name: RADHA SANDOVAL ---CT--- Exam Date/Time 02/01/2019 18:57:[address] Spine Cervical w/o Contrast Ordering Physician MD CR, REYNA Accession Number [id number] CPT4 Codes 33609 () Reason For Exam NECK PAIN FOLLOWING [...] NELSON Transcribed Date and Time: 02/01/2019 7:12 [place] Patient Name: RADHA SANDOVAL ---CT--- Exam Date/Time 02/01/2019 18:57:[address] Spine Cervical w/o Contrast Ordering Physician MD HANKINS ALEKSANDAR Accession Number [id number] CPT4 Codes 51955 () Reason For Exam NECK PAIN FOLLOWING [...] NELSON Transcribed Date and Time: 02/01/2019 7:12 [place] CT HEAD WO CONTRASTon 2018 [facility], [facility] Incoming Radiology Results From [facility] - 02/01/2019 7:40 PM EDT Patient Name: RADHA SANDOVAL ---CT--- Exam Date/Time 02/01/2019 18:57:[address] Head or Brain w/o Contrast Ordering Physician MD CR, REYNA Accession Number [id number] CPT4 Codes 79681 () Reason For Exam HEAD INJURY MILD [...] R Transcribed Date and Time: 02/01/2019 7:35 [place] Patient Name: RADHA SANDOVAL ---CT--- Exam Date/Time 02/01/2019 18:57:[address] Head or Brain w/o Contrast Ordering Physician MD HANKINS ALEKSANDAR Accession Number [id number] CPT4 Codes 48488 () Reason For Exam HEAD INJURY MILD [...] R Transcribed Date and Time: 02/01/2019 7:35 [place] Ethanolon 02-01-2019 Ethanol Lvl <0.010 0 - 0.01 g/dL [place] Comment on above: NOTE: This result is for medical treatment only. Analysis performed using non-forensic procedures. Otheron 02-01-2019 Test Performed by [facility], [address] [place] [id number] [place] [address] Protime/INR & PTTon 02-02-20 19 aPTT Coag (Bld) [Time] 23.9 s 20 - 30.5 s M [place], [place] Comment on above: NOTE: The therapeuti c time for Heparin anticoagulation, based on Xa activity inhibition, is an APTT of 46-80 seconds. INR Coag (PPP) [Relative time] 0.9 {INR} [place] Comment on above: Recommended Anticoag ulant [...] [Time] 9.9 s 9 - 12 s [place], [place] Comment on above: . TYPE AND SCREENon 02-01-2019 Sodium [Moles/Vol] Positive [place] Comment on above: Test Performed by [facility], [facility] [place] [address] Sodium [Moles/Vol] O [place] Sodium [Moles/Vol] Negative [place] Comment on above: Test Performed by [facility], [address] [place] [id number] XR CHEST PORTABLEon 02-02-20 19 [facility], [facility] - 02/01/2019 7:15 PM EDT Patient Name: RADHA SANDOVAL ---Diagnostic Radiology--- Exam Date/Time 02/01/2019 19:11:56 EDT Exam CR Chest Portable Ordering Physician MD CR, [facility] Accession Number [id number] CPT4 Codes 86604 () Reason For Exam TRAUMA, FALL Report [...] R Transcribed Date and Time: 02/01/2019 7:13 [place] Patient Name: RADHA SANDOVAL ---Diagnostic Radiology--- Exam Date/Time 02/01/2019 19:11:56 EDT Exam CR Chest Portable Ordering Physician MD HANKINS ALEKSANDAR Accession Number [id number] CPT4 Codes 68951 () Reason For Exam TRAUMA, FALL Report [...] R Transcribed Date and Time: 02/01/2019 7:13 [place] XR PELVIS (1-2 VW)on Patient Name: RADHA SANDOVAL ---Diagnostic Radiology--- Exam Date/Time 02/01/2019 19:11:56 EDT Exam CR Pelvis 1 or 2 Views Ordering Physician MD HANKINS ALEKSANDAR Accession Number [id number] CPT4 Codes 04659 () Reason For Exam TRAUMA, FALL Report [...] R Transcribed Date and Time: 02/01/2019 7:12 [place] [facility], [facility] - 02/01/2019 7:14 PM EDT Patient Name: RADHA SANDOVAL ---Diagnostic Radiology--- Exam Date/Time 02/01/2019 19:11:56 EDT Exam CR Pelvis 1 or 2 Views Ordering Physician MD HANKINS ALEKSANDAR Accession Number [id number] CPT4 Codes 44181 () Reason For Exam TRAUMA, FALL Report [...] R Transcribed Date and Time: 02/01/2019 7:12 [place] Vital Signs Date Time Vital Sign Value Performing Clinician [facility] 03-18-2023 11:02-0400 Body temperature 98.7 [degF] [facility] 03-18-2023 11:02-0400 Diastolic blood pressure 50 mm[Hg] [facility] 03-18-2023 11:02-0400 Heart rate 74 /min [facility] 03-18-2023 11:02-0400 Respiratory rate 18 /min [facility] 03-18-2023 11:02-0400 SaO2% (BldA) [Mass fraction] 96 % [facility] 03-18-2023 11:02-0400 Systolic blood pressure 142 mm[Hg] [facility] 03-15-2023 14:20-0400 Body height 170.18 cm [facility] 03-15-2023 14:20-0400 Body weight 113.21 kg [facility] 03-14-2023 09:34-0400 Body mass index (BMI) [Ratio] 39.1 kg/m2 [facility] 03-03-2023 07:40-0400 Body temperature 98.1 [degF] Tasneem Whaley MD Work Phone: [facility] 03-03-2023 07:40-0400 Diastolic blood pressure 81 mm[Hg] Tasneem Whaley MD Work Phone: [facility] 03-03-2023 07:40-0400 Heart rate 93 /min Tasneem Whaley MD Work Phone: [facility] 03-03-2023 07:40-0400 Respiratory rate 16 /min Tasneem Whaley MD Work Phone: [facility] 03-03-2023 07:40-0400 SaO2% (BldA) [Mass fraction] 94 % Tasneem Whaley MD Work Phone: [facility] 03-03-2023 07:40-0400 Systolic blood pressure 154 mm[Hg] Tasneem Whaley MD Work Phone: [facility] 02-27-2023 14:44-0400 Body mass index (BMI) [Ratio] 36.65 kg/m2 Katia Bridenthal [employer] DEVELOPER - MODERN LANGUAGES PROFESSOR Work Phone: [facility] 02-27-2023 14:44-0400 Body temperature 99.1 [degF] Katia Bridenthal [employer] DEVELOPER - MODERN LANGUAGES PROFESSOR Work Phone: [facility] 02-27-2023 14:44-0400 Body weight 106.14 kg Katia Bridenthal [employer] DEVELOPER - MODERN LANGUAGES PROFESSOR Work Phone: [facility] 02-27-2023 14:44-0400 Diastolic blood pressure 72 mm[Hg] Katia Bridenthal [employer] DEVELOPER - MODERN LANGUAGES PROFESSOR Work Phone: [facility] 02-27-2023 14:44-0400 Heart rate 93 /min Katia Bridenthal [employer] DEVELOPER - MODERN LANGUAGES PROFESSOR Work Phone: [facility] 02-27-2023 14:44-0400 Respiratory rate 20 /min Katia Bridenthal CUR[employer] DEVELOPER - MODERN LANGUAGES PROFESSOR Work Phone: [facility] 02-27-2023 14:44-0400 SaO2% (BldA) [Mass fraction] 92 % Katia Gregenthal [employer] DEVELOPER - MODERN LANGUAGES PROFESSOR Work Phone: [facility] 02-27-2023 14:44-0400 Systolic blood pressure 136 mm[Hg] Katia Gregenthal [employer] DEVELOPER - MODERN LANGUAGES PROFESSOR Work Phone: [facility] 02-15-2023 13:07-0400 Body height 170.2 cm Lenard Magallanes DO Work Phone: [facility] 02-15-2023 13:07-0400 Body mass index (BMI) [Ratio] 35.71 kg/m2 Lenard Magallanes DO Work Phone: [facility] 02-15-2023 13:07-0400 Body temperature 98.6 [degF] Lenard Magallanes DO Work Phone: [facility] 02-15-2023 13:07-0400 Body weight 103.42 kg Lenard Magallanes DO Work Phone: [facility] 02-15-2023 13:07-0400 Diastolic blood pressure 76 mm[Hg] Lenard Magallanes DO Work Phone: [facility] 02-15-2023 13:07-0400 Heart rate 75 /min Lenard Magallanes DO Work Phone: [facility] 02-15-2023 13:07-0400 Respiratory rate 20 /min Lenard Magallanes DO Work Phone: [facility] 02-15-2023 13:07-0400 Systolic blood pressure 141 mm[Hg] Lenard Magallanes DO Work Phone: [facility] 02-07-2023 11:18-0400 Diastolic blood pressure 72 mm[Hg] Katia Bridenthal [employer] DEVELOPER - MODERN LANGUAGES PROFESSOR Work Phone: [facility] 02-07-2023 11:18-0400 Systolic blood pressure 146 mm[Hg] Katia Bridenthal [employer] DEVELOPER - MODERN LANGUAGES PROFESSOR Work Phone: [facility] 02-07-2023 10:39-0400 Body mass index (BMI) [Ratio] 40.34 kg/m2 Katia Bridenthal [employer] DEVELOPER - MODERN LANGUAGES PROFESSOR Work Phone: [facility] 02-07-2023 10:39-0400 Body temperature 97.3 [degF] Katia Bridenthal [employer] DEVELOPER - MODERN LANGUAGES PROFESSOR Work Phone: [facility] 02-07-2023 10:39-0400 Body weight 109.95 kg Katia Bridenthal [employer] DEVELOPER - MODERN LANGUAGES PROFESSOR Work Phone: [facility] 02-07-2023 10:39-0400 Heart rate 88 /min Katia Bridenthal [employer] DEVELOPER - MODERN LANGUAGES PROFESSOR Work Phone: [facility] 02-07-2023 10:39-0400 Respiratory rate 20 /min Katia Bridenthal CURAM DEVELOPER - MODERN LANGUAGES PROFESSOR Work Phone: [facility] 02-07-2023 10:39-0400 SaO2% (BldA) [Mass fraction] 96 % Katia Bridenthal [employer] DEVELOPER - MODERN LANGUAGES PROFESSOR Work Phone: [facility] 12-07-2022 10:03-0400 Diastolic blood pressure 80 mm[Hg] Anusha Velarde MD Work Phone: [facility] 12-07-2022 10:03-0400 Heart rate 72 /min Anusha Velarde MD Work Phone: [facility] 12-07-2022 10:03-0400 Respiratory rate 18 /min Anusha Velarde MD Work Phone: [facility] 12-07-2022 10:03-0400 SaO2% (BldA) [Mass fraction] 96 % Anusha Velarde MD Work Phone: [facility] 12-07-2022 10:03-0400 Systolic blood pressure 162 mm[Hg] Anusha Velarde MD Work Phone: [facility] 12-07-2022 09:50-0400 Body temperature 97.2 [degF] Anusha Velarde MD Work Phone: [facility] 12-07-2022 08:49-0400 Body height 165.1 cm Anusha Velarde MD Work Phone: [facility] 12-07-2022 08:49-0400 Body mass index (BMI) [Ratio] 41.6 kg/m2 Anusha Velarde MD Work Phone: [facility] 12-07-2022 08:49-0400 Body weight 113.4 kg Anusha Velarde MD Work Phone: [facility] 06-30-2022 08:47-0500 Diastolic blood pressure 62 mm[Hg] Shiv Lopez MD Work Phone: [facility] 06-30-2022 08:47-0500 Heart rate 80 /min Shiv Lopez MD Work Phone: [facility] 06-30-2022 08:47-0500 Systolic blood pressure 125 mm[Hg] Shiv Lopez MD Work Phone: [facility] 06-30-2022 08:16-0500 Body height 165.7 cm Shiv Lopez MD Work Phone: [facility] 06-30-2022 08:16-0500 Body mass index (BMI) [Ratio] 39.96 kg/m2 Shiv Lopez MD Work Phone: [facility] 06-30-2022 08:16-0500 Body weight 109.77 kg Shiv Lopez MD Work Phone: [facility] Encounters Encounter Date Encounter Type Care Provider Facility Start: 03-06-2025 ambulatory Melissa Gudla OLS Facili ty:[facility] Start: 02-20-2025 ambulatory Melissa Gudla OLS Facili ty:[facility] Start: 02-06-2025 ambulatory Melissa Gudla OLS Facili ty:[facility] Start: 01-23-2025 ambulatory Melissa Gudla Facility:[facility] Start: 01-09-2025 ambulatory Melissa Gudla Facility:[facility] Start: 12-26-2024 ambulatory Melissa Gudla Facility:[facility] Start: 12-24-2024 ambulatory Melissa Gudla Facility:[facility] Start: 12-12-2024 [facility] Start: 11-28-2024 End: 11-28-[address] Melissa Reed MD [facility] Work Phone: Start: 11-28-2024 End: 11-28-[address] Melissa Reed MD -[facility] Work Phone: Start: 11-28-[address] Melissa Reed MD -[facility] Work Phone: Start: 11-28-2024 End: 11-28-2024 [facility] Start: 11-14-2024 [facility] Start: 11-14-[address] Melissa Reed MD -[facility] Work Phone: Start: 11-08-2024 End: 11-08-[address] Melissa Reed MD [facility] Work Phone: Start: 11-08-2024 End: 11-08-[address] Melissa Reed MD -[facility] Work Phone: Start: 11-08-2024 End: 11-08-2024 ambulatory [facility] Facility:[facility] Start: 10-17-2024 End: 10-17-[address] Melissa Reed MD -[facility] Work Phone: Start: 10-17-2024 End: 10-17-2024 ambulatory Melissa Gukasia [facility] Facility:[facility] Start: 10-03-2024 End: 10-03-[address] Shiv Lopez MD Work Phone: [facility] Work Phone: Start: 10-03-2024 End: 10-03-[address] Melissa Reed MD -[facility] Work Phone: Start: 10-03-2024 End: 10-03-2024 ambulatory Melissa THOMPSON Facility:[facility] Start: 09-23-2024 ambulatory Melissa THOMPSON Facili ty:[facility] Start: 09-23-[address] Melissa Reed MD -[facility] Work Phone: Start: 09-19-2024 End: 09-19-[address] Shiv Lopez MD Work Phone: [facility] Work Phone: Start: 09-19-2024 End: 09-19-[address] Melissa Reed MD -[facility] Work Phone: Start: 09-19-[address] Meilssa Reed MD -[facility] Work Phone: Start: 09-19-2024 End: 09-19-2024 ambulatory Melissa THOMPSON Facility:[facility] Start: 09-05-2024 End: 09-05-[address] Shiv Lopez MD Work Phone: [facility] Work Phone: Start: 09-05-2024 End: 09-05-[address] Melissa Reed MD -[facility] Work Phone: Start: 09-05-[address] Melissa Reed MD -[facility] Work Phone: Start: 09-05-2024 End: 09-05-2024 ambulatory Melissa THOMPSON Facility:[facility] Start: 08-22-2024 End: 08-22-[address] Shiv Lopez MD Work Phone: [facility] Work Phone: Start: 08-22-2024 End: 08-22-[address] Melissa Reed MD -[facility] Work Phone: Start: 08-22-2024 End: 08-22-2024 ambulatory Melissa Genenaz OLS Facility:[facility] Start: 08-08-2024 ambulatory Melissa Genekasidiony Facility:[facility] Start: 08-08-[address] Melissa Reed MD -[facility] Start: 08-06-2024 ambulatory Melissabridgette Reed Facility:[facility] Start: 08-06-[address] Melissa Reed MD -[facility] Work Phone: Start: 07-31-2024 End: 07-31-[address] Gypsy Argueta MD -Radiology, [facility] Work Phone: Start: 07-31-2024 End: 07-31-2024 ambulatory Gypsy Argueta Facility:[facility] Start: 07-25-2024 ambulatory Shiv [facility] Facility :[facility] Start: 07-25-[address] Melissa Reed MD -[facility] Work Phone: Start: 07-11-2024 ambulatory Shiv [facility] Facility :[facility] Start: 07-11-[address] Melissa Reed MD -[facility] Work Phone: Start: 06-27-2024 End: 06-27-[address] Melissa Reed MD -[facility] Work Phone: Start: 06-27-2024 End: 06-27-2024 ambulatory [facility] Facility:[facility] Start: 06-13-2024 ambulatory [facility] Facility :[facility] Start: 06-13-[address] Melissa Reed MD -[facility] Work Phone: Start: 05-29-2024 End: 05-29-[address] Melissa Reed MD -[facility] Work Phone: Start: 05-29-2024 End: 05-29-2024 ambulatory Shiv John Facility:[facility] Start: 05-15-2024 End: 05-15-2024 ambulatory Shiv John Facility:[facility] Start: 05-01-2024 End: 05-01-2024 ambulatory Shiv John Facility:[facility] Start: 04-17-2024 End: 04-17-2024 ambulatory Shiv John Facility:[facility] Start: 04-04-2024 End: 04-[facility] Start: 04-01-2024 End: 04-01-2024 ambulatory [facility] Facility:[facility] Start: 03-20-2024 End: 03-20-2024 [facility] Start: 12-29-2023 End: 12-29-2023 ambulatory [facility] Start: 09-29-2023 End: 09-29-2023 ambulatory [facility] Work Phone: Start: 09-29-2023 End: 09-29-2023 Departed [facility] Work Phone: Start: 09-14-2023 End: 09-14-2023 ambulatory [facility] Work Phone: Start: 09-14-2023 End: 09-14-2023 Departed [facility] Work Phone: Start: 08-31-2023 End: 08-31-2023 ambulatory [facility] Work Phone: Start: 08-31-2023 End: 08-31-2023 Departed [facility] Work Phone: Start: 08-17-2023 End: 08-17-2023 ambulatory [facility] Work Phone: Start: 08-17-2023 End: 08-17-2023 Departed [facility] Work Phone: Start: 08-14-2023 End: 08-14-2023 Departed [facility] Work Phone: Start: 07-31-2023 End: 07-31-2023 Departed [facility] Work Phone: Start: 07-17-2023 End: 07-17-2023 Departed [facility] Work Phone: Start: 07-03-2023 End: 07-03-2023 Departed [facility] Work Phone: Start: 07-03-2023 Registered Referred [facility] Work Phone: Start: 06-23-2023 End: 06-23-2023 ambulatory [facility] Work Phone: Start: 06-23-2023 End: 06-23-2023 Departed Referred [facility] Start: 06-20-2023 End: 06-20-2023 ambulatory [facility] Work Phone: Start: 06-20-2023 End: 06-20-2023 Departed [facility] Work Phone: Start: 06-20-2023 Registered Referred [facility] Work Phone: Start: 05-10-2023 End: 05-10-2023 ambulatory [facility] Work Phone: Start: 05-10-2023 End: 05-10-2023 Departed Referred [facility] Start: 05-10-2023 Registered Referred [facility] Start: 05-01-2023 End: 05-01-2023 ambulatory [facility] Work Phone: Start: 05-01-2023 End: 05-01-2023 Departed Referred [facility] Start: 04-04-2023 End: 04-04-2023 ambulatory [facility] Work Phone: Start: 04-04-2023 End: 04-04-2023 Departed Referred [facility] Start: 03-20-2023 End: 03-20-2023 Departed Referred [facility] Start: 03-03-2023 End: 03-18-2023 Evaluation and management of inpatient [facility] Start: 02-28-2023 End: 03-03-2023 ambulatory Imelda Mann RN [facility] Clinical Communication Start: 02-28-2023 Patient encounter procedure [facility] Start: 02-28-2023 End: 03-03-2023 Emergency department patient visit Tasneem Whaley MD Work Phone: [facility] Comment on above: LING (acute kidney in jury) (CMS/HCC) (HCC) (Primary Dx); Pyelonephritis; Polypharmacy; Insomnia, unspecified type; Pressure ulcer of right buttock, stage 3 (HCC) Start: 02-27-2023 End: 02-27-2023 ambulatory [facility] Start: 02-27-2023 End: 02-27-2023 Office outpatient visit 25 minutes Katia Granados APRN - MODERN LANGUAGES PROFESSOR Work Phone: [facility] Comment on above: [...] type Start: 02-23-2023 ambulatory Nan Bush RN [facility] Cl inical Communication Start: 02-23-2023 Patient encounter procedure Nan Bush RN [facility] Clinical Communication Start: 02-15-2023 End: 02-15-2023 Subsequent hospital visit by physician Lenard Magallanes DO Work Phone: [facility] Comment on above: Arrived Start: 02-15-2023 End: 02-15-2023 ambulatory LENARD SONA [facility] Start: 02-07-2023 End: 02-07-2023 Office outpatient visit 15 minutes Katia Granados CURAM DEVELOPER - MODERN LANGUAGES PROFESSOR Work Phone: [facility] Comment on above: Wound of right butto ck, subsequent encounter (Primary Dx); Chronic left shoulder pain Start: 02-07-2023 End: 02-07-2023 ambulatory SHIV JOHN [facility] Start: 01-25-2023 ambulatory Colette Poole RN [facility] Clinical Communication Start: 01-25-2023 Patient encounter procedure Colette Poole RN [facility] Clinical Communication Start: 01-12-2023 Refill Katia ley CURAM DEVELOPER - MODERN LANGUAGES PROFESSOR Work Phone: [facility] Comment on above: Vitamin D deficiency ; Acquired hypothyroidism; Chronic left shoulder pain; Restless legs syndrome (RLS) Start: 12-08-2022 Refill Katia ley CURAM DEVELOPER - MODERN LANGUAGES PROFESSOR Work Phone: [facility] Comment on above: Hyperlipidemia with target LDL less than 70; Acquired hypothyroidism; Chronic left shoulder pain Start: 12-05-2022 ambulatory Sruthi Burns RN [facility] Clinical Communication Start: 12-05-2022 Patient encounter procedure Sruthi Burns RN [facility] Clinical Communication Start: 12-05-2022 End: 12-07-2022 Emergency department patient visit Anusha Velarde MD Work Phone: [facility] Comment on above: Acute lower GI bleed ing (Primary Dx); Rectal bleeding Start: 10-05-2022 Telephone encounter Shiv James MD Work Phone: [facility] Comment on above: Results Start: 08-12-2022 Refill Shiv Lopez MD Work Phone: [facility] Clinical Communication Start: 07-26-2022 Refill Shiv Lopez MD Work Phone: [facility] Start: 07-18-2022 Refill Katia Montero av CURAM DEVELOPER - MODERN LANGUAGES PROFESSOR Work Phone: [facility] Comment on above: Vitamin D deficiency Start: 07-11-2022 Refill Shiv Lopez MD Work Phone: [facility] Start: 07-08-2022 ambulatory [facility] Start: 07-08-2022 Patient encounter procedure Christine Haas [facility] Communication Comment on above: Trauma (Primary Dx) Start: 07-07-2022 Telephone encounter Devendra ramos MD Work Phone: [facility] [place] Comment on above: Reschedule (07/08/22 ) Start: 06-30-2022 End: 06-30-2022 Office outpatient visit 25 minutes Shiv Lopez MD Work Phone: [facility] Comment on above: Uncontrolled type 2 [...] by physician Shiv Lopez MD Work Phone: [facility] Radiology Comment on above: Dyspnea on exertion Start: 08-25-2021 End: 08-25-2021 Subsequent hospital visit by physician Sommer Chatterjee DPM Work Phone: [facility] Start: 11-05-2020 End: 11-05-2020 Subsequent hospital visit by physician Shiv Lopez MD Work Phone: [facility] [place] [facility] Start: 10-07-2020 End: 10-07-2020 Subsequent hospital visit by physician Shiv Lopez MD Work Phone: [facility] Comment on above: Localized edema Start: 09-29-2020 End: 09-29-2020 Subsequent hospital visit by physician Shiv Lopez Work Phone: [facility] [place] [facility] Start: 09-08-2020 End: 09-08-2020 Subsequent hospital visit by physician Shiv Lopez Work Phone: [facility] [place] [facility] Start: 09-01-2020 End: 09-01-2020 Subsequent hospital visit by physician Roseanne Roberts Work Phone: [facility] Start: 08-18-2020 End: 08-18-2020 Subsequent hospital visit by physician Shiv Lopez Work Phone: [facility] [place] [facility] Start: 07-31-2020 End: 07-31-2020 Subsequent hospital visit by physician Shiv Lopez Work Phone: [facility] [place] [facility] Start: 02-01-2019 End: 02-01-2019 Emergency department patient visit Dick Edie Ace Work Phone: [facility] Emergency Dept Comment on above: Injury of head, init ial encounter (Primary Dx); Laceration of scalp, initial encounter; Strain of neck muscle, initial encounter Start: 01-18-2019 End: 01-18-2019 Subsequent hospital visit by physician Darya Berrios Work Phone: [facility] Laboratory Start: 07-05-2017 Ambulatory Shiv Mercado [facility] Procedures Date Procedure Procedure Detail Performing [...] et rgnt non-auto w/o micrscp Katia Bridenthal CURAM DEVELOPER - MODERN LANGUAGES PROFESSOR Work Phone: Start: 02-27-2023 Glucose [Mass/volume ] in Serum or Plasma Katia Bridenthal CURAM DEVELOPER - MODERN LANGUAGES PROFESSOR Work Phone: Start: 02-27-2023 Thyrotropin [Units/v olume] [...] Basic metabolic panel calcium total Ashley L Frederick OCONNOR Work Phone: Start: 06-30-2022 Lipid 1996 [...] 02-01-2019 Radiologic exam ches t single view [facility] Work Phone: Start: 02-01-2019 Radiologic examinati on pelvis 1/2 views [facility] Work Phone: Start: 02-01-2019 Ct cervical spine w/ o contrast material [facility] Work Phone: Start: 02-01-2019 Ct head/brain w/o co ntrast material [facility] Work Phone: Start: 02-01-2019 Blood typing serologic abo Dick Edie Db Work Phone: Start: 02-01-2019 Assay of ethanol Dick Edie Db Work Phone: Start: 02-01-2019 Basic metabolic pane l calcium total Dick Ace Work Phone: Start: 02-01-2019 Blood count complete automated Dick Ace Work Phone: Start: 02-01-2019 PROTIME/INR & PTT Yobany Ace Work Phone: Plan of Treatment Date Care Activity Detail Author Start: 09-23-2024 Urine culture Urine Culture [facility] Start: 09-23-2024 [facility] Start: 09-05-2024 Urine culture Urine Culture [facility] Start: 09-05-2024 [facility] Start: 02-28-2024 Thyroid stimulating hormone measurement TSH Level [facility] Start: 02-18-2024 Influenza vaccination Influenza Vacc ine (#1) [facility] Start: 02-08-2024 COVID-19 Vaccine (3 - Booster for Brian series) COVID-19 Vaccine (3 - Booster for Brian series) [facility] Comment on above: Postponed from 06/21 (Patient Refused) Start: 02-08-2024 DTaP/Tdap/Td Vaccine s (1 - Tdap) DTaP/Tdap/Td Vaccines (1 - Tdap) [facility] Comment on above: Postponed from 08/27 (Patient Refused) Start: 02-08-2024 [facility] above: Postponed from 08/27 (Patient Refused) Start: 02-08-2024 Zoster Vaccines (2 o f 2) Zoster Vaccines (2 of 2) [facility] Comment on above: Postponed from 05/26 (Patient Refused) Start: 08-10-2023 Depression Monitoring Depression Mon itoring [facility] Start: 08-10-2023 [facility] Start: 06-30-2023 Lipid panel Lipid Panel [facility] Start: 06-30-2023 Thyroid stimulating hormone measurement TSH Level [facility] Start: 06-30-2023 Urine screening for protein Diabetes: Urine Protein Screening [facility] Start: 06-19-2023 Medicare Advantage Annual Wellness Visit Medicare Advantage Annual Wellness Visit [facility] Start: 06-14-2023 [facility] Start: 04-27-2023 End: 04-27-[address] [facility] Start: 04-27-2023 Depresssion [facility] Start: 04-08-2023 Blood chemistry [facility] Start: 04-01-2023 Blood chemistry [facility] Start: 03-25-2023 Blood chemistry [facility] Start: 03-20-2023 SARS-CoV-2 (COVID-19 ) Ag [Presence] in Respiratory specimen by Rapid immunoassay [facility] Start: 03-19-2023 Development of care plan [facility] Start: 03-18-2023 Patient discharge [facility] Start: 03-17-2023 End: 03-17-2023 [facility] Start: 03-17-2023 Microbial culture, routine Wound Culture [facility] Start: 03-17-2023 Bacterial nucleic ac id assay [facility] Start: 03-13-2023 [facility] Start: 03-06-2023 Referral to sheet folder [facility] Start: 03-04-2023 Development of care plan [facility] Start: 03-03-2023 Admission procedure [facility] Start: 03-03-2023 Measuring intake and output [facility] Start: 03-03-2023 Patient referral to dietitian [facility] Start: 03-03-2023 Referral to occupational therapist [facility] Start: 03-03-2023 Referral to service [facility] Start: 03-03-2023 Vital signs measurements [facility] Start: 03-03-2023 [facility] Start: 03-03-2023 Verification routine [facility] Start: 03-03-2023 End: 03-03-[address] [facility] Start: 03-03-2023 Patient referral to dietitian [facility] Start: 02-27-2023 End: 02-28-2024 Bacteria identified in Urine by Culture Urine culture (clean catch) Microbiology Routine Urinary tract infection symptoms Expected: 02/27/2023 (Approximate), Expires: 02/28/2024 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, with long-term current use of insulin, unspecified whether stage 3a or 3b CKD (HCC) Primary hypertension Hypokalemia Expected: 02/27/2023 (Approximate), Expires: 02/28/2024 [facility] Work Phone: Comment on above: Expected: 02/27/2023 (Approximate), Expires: 02/28/2024 Start: 02-27-2023 End: 02-28-2024 Magnesium [Mass/volume] in Serum or Plasma Magnesium Lab Routine 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, with long-term current use of insulin, unspecified whether stage 3a or 3b CKD (HCC) Hypokalemia Expected: 02/27/2023 (Approximate), Expires: 02/28/2024 [facility] Comment on above: Expected: 02/27/2023 (Approximate), Expires: 02/28/2024 Start: 02-27-2023 End: 02-28-2024 Thyrotropin [Units/volume] in Serum or Plasma TSH Lab Routine Acquired hypothyroidism Expected: 02/27/2023 (Approximate), Expires: 02/28/2024 [facility] Comment on above: Expected: 02/27/2023 (Approximate), Expires: 02/28/2024 Start: 02-27-2023 End: 02-27-2023 Patient encounter procedure 02/27/2023 1:00 PM EDT Office Visit [facility] [address] [place] [address] Carolina Connolly, CURAM DEVELOPER - MODERN LANGUAGES PROFESSOR [address] [place] [address] [facility] Start: 02-24-2023 End: 02-24-2023 Patient encounter procedure 02/24/2023 11:20 AM EDT Office Visit [facility] [address] [place] [address] [place] [address] [place] [address] Katia Granados, CURAM DEVELOPER - MODERN LANGUAGES PROFESSOR [address] [place] [address] [facility] Start: 02-22-2023 End: 02-22-2023 Patient encounter procedure 02/22/2023 2:00 PM EDT Appointment [facility] [address] [place] [address] Lenard Magallanes, [address] [place] [address] [facility] Start: 02-17-2023 COVID-19 Vaccine ( season) COVID-19 Vacc[address] () [facility] Start: 02-17-2023 Influenza vaccination Influenza Vacc ine (#1) [facility] Start: 02-14-2023 End: 02-14-2023 Patient encounter procedure 02/14/2023 10:20 AM EDT Office Visit [facility] [address] [place] [address] [place] [address] Katia Granados, CURAM DEVELOPER - MODERN LANGUAGES PROFESSOR [address] [place] [address] [facility] Start: 02-01-2023 End: 02-01-2023 Patient encounter procedure 02/01/2023 2:15 PM EDT Office Visit [facility] [address] [place] [address] Shiv Lopez MD [address] [facility] [place] [address] [facility] Start: 01-25-2023 End: 01-25-2023 Patient encounter procedure 01/25/2023 3:00 PM EDT Office Visit [facility] [address] [place] [address] Shiv Lopez MD [address] [place] [address] [place] [address] [facility] Start: 01-03-2023 Hemoglobin A1c measurement Diabetes: Hemoglobin A1C [facility] Start: 10-25-2022 End: 10-25-2022 Patient encounter procedure 10/25/2022 Office Visit Family Medicine Shiv Lopez MD [address] [place], [place] [address], [place] [address] [facility] Start: 09-29-2022 End: 09-29-2022 Patient encounter procedure 09/29/2022 Office Visit Family Medicine Shiv Lopez MD [address] [place], [place] [address], [place] [address] [facility] Start: 09-28-2022 Hemoglobin A1c measurement Diabetes: Hemoglobin A1C [facility] Start: 09-09-2022 Creatinine measurement Creatinine mo nitoring [facility] Start: 09-09-2022 Potassium monitoring Potassium monit oring [facility] Start: 09-09-2022 Thyroid stimulating hormone measurement TSH testing [facility] Start: 08-05-2022 Creatinine measurement Creatinine mo nitoring [facility] Start: 08-05-2022 Potassium monitoring Potassium monit oring [facility] Start: 07-08-2022 Depression Monitoring Depression Mon itoring [facility] Start: 06-30-2022 End: 06-30-2023 25-hydroxyvitamin D3 [Mass/volume] in Serum or Plasma Vitamin D 25 hydroxy Lab Routine Vitamin D deficiency Expected: 06/30/2022 (Approximate), Expires: 06/30/2023 [facility] Work Phone: Comment on above: Expected: 06/30/2022 (Approximate), Expires: 06/30/2023 Start: 06-30-2022 End: 06-30-2023 Comprehensive metabolic 1998 panel - Serum or Plasma Comprehensive metabolic panel Lab Routine Uncontrolled type 2 diabetes mellitus with hyperglycemia (HCC) Expected: 06/30/2022 (Approximate), Expires: 06/30/2023 [facility] Comment on above: Expected: 06/30/2022 (Approximate), Expires: 06/30/2023 Start: 06-30-2022 End: 06-30-2023 Hemoglobin A1c/Hemoglobin.total in Blood Hemoglobin A1c Lab Routine Uncontrolled type 2 diabetes mellitus with hyperglycemia (HCC) Expected: 06/30/2022 (Approximate), Expires: 06/30/2023 [facility] Comment on above: Expected: 06/30/2022 (Approximate), Expires: 06/30/2023 Start: 06-30-2022 End: 06-30-2023 Lipid 1996 panel - Serum or Plasma Lipid panel Lab Routine Hyperlipidemia with target LDL less than 70 Expected: 06/30/2022 (Approximate), Expires: 06/30/2023 [facility] Comment on above: Expected: 06/30/2022 (Approximate), Expires: 06/30/2023 Start: 06-30-2022 End: 06-30-2023 Microalbumin/Creatinine panel in random Urine Microalbumin / creatinine urine ratio Lab Routine Uncontrolled type 2 diabetes mellitus with hyperglycemia (HCC) Expected: 06/30/2022 (Approximate), Expires: 06/30/2023 [facility] Comment on above: Expected: 06/30/2022 (Approximate), Expires: 06/30/2023 Start: 06-30-2022 End: 06-30-2023 Thyrotropin [Units/volume] in Serum or Plasma TSH Lab Routine Acquired hypothyroidism Expected: 06/30/2022 (Approximate), Expires: 06/30/2023 [facility] Comment on above: Expected: 06/30/2022 (Approximate), Expires: 06/30/2023 Start: 06-22-2022 Lipid panel [facility] Start: 03-31-2022 Pneumococcal Vaccine : 65+ Years (2 - PCV) Pneumococcal Vaccine: 65+ Years (2 - PCV) [facility] Start: 02-28-2022 End: 02-28-2022 Patient encounter procedure 02/28/2022 Office Visit Family Medicine Shiv Lopez MD [address] [place] [address] [place] [address] [facility] Start: 02-17-2022 Annual Wellness Visi t (AWV) Annual Wellness Visit (AWV) [facility] Start: 02-16-2022 Hepatitis C screening Hepatitis C sc reen [facility] Comment on above: Postponed from 08/27 (Patient Refused) Start: 02-16-2022 Thyroid stimulating hormone measurement TSH testing [facility] Start: 11-02-2021 Hemoglobin A1c measurement Diabetes: Hemoglobin A1C [facility] Start: 10-01-2021 Creatinine measurement Creatinine mo nitoring [facility] Work Phone: Start: 10-01-2021 Potassium monitoring Potassium monit oring [facility] Work Phone: Start: 09-13-2021 End: 09-13-2021 Patient encounter procedure 09/13/2021 Office Visit Family Medicine Shiv Lopez MD [address] [place] [address] [place] [address] [facility] Start: 09-02-2021 End: 09-02-2021 Patient encounter procedure 09/02/2021 Office Visit Family Medicine Shiv Lopez MD [address] [place] [address] [facility] Start: 06-24-2021 Thyroid stimulating hormone measurement TSH testing [facility] Work Phone: Start: 06-24-2021 TSH Qn TSH testing [facility] Work Phone: Start: 06-21-2021 COVID-19 Vaccine (3 - Booster for Brian series) COVID-19 Vaccine (3 - Booster for Brian series) [facility] Start: 05-26-2021 Shingles Vaccine (2 of 2) Shingles Vaccine (2 of 2) [facility] Start: 05-26-2021 Zoster Vaccines (2 o f 2) Zoster Vaccines (2 of 2) [facility] Start: 04-20-2021 Creatinine measurement Creatinine mo nitoring [email or web address] Work Phone: Start: 04-20-2021 Potassium monitoring Potassium monit oring [facility] Work Phone: Start: 01-15-2021 Screening for osteoporosis DEXA (modify frequency per FRAX score) [facility] Work Phone: Comment on above: Postponed from 08/27 (Patient Refused) Start: 01-07-2021 Urine screening for protein Diabetes: Urine Protein Screening [facility] Start: 10-12-2020 End: 10-12-2020 Patient encounter procedure 10/12/2020 Office Visit Family Medicine Shiv Lopez MD [address] [facility] [address] [place], [place] [id number] [facility] Start: 10-08-2020 End: 10-08-2020 Patient encounter procedure 10/08/2020 Office Visit Family [facility] [address] [place] [id number] Canceled (Patient) [facility] Comment on above: Canceled (Patient) Start: 10-01-2020 End: 10-01-2020 Office Visit 10/01/2020 Office Visit Family [place] [address] [phone] [facility] Start: 06-03-2020 Lipid panel Lipid screen [facility] Work Phone: Start: 01-21-2020 A1C test (Diabetic o r Prediabetic) A1C test (Diabetic or Prediabetic) [place], [place] Start: 01-19-2020 TSH testing TSH testing [place], [place] Start: 06-07-2019 DTaP/Tdap/Td vaccine (1 - Tdap) DTaP/Tdap/Td vaccine (1 - Tdap) [place] Comment on above: Postponed from 08/27 (Patient Refused) Start: 05-23-2019 Diabetic retinal exam Diabetic retin al exam [place], [place] Start: 04-12-2019 Lipid screen Lipid screen [place], [place] Start: 02-17-2019 Influenza vaccination Flu vaccine (# 1) [place] Start: 12-05-2018 Annual Wellness Visi t (AWV) Annual Wellness Visit (AWV) [facility] Work Phone: Start: 10-06-2017 [object Object] Diabetic foot exam [place] Start: 10-06-2017 Annual Wellness Visi t (AWV) Annual Wellness Visit (AWV) [place], [place] Start: 03-09-2013 Pneumococcal 65+ yea rs Vaccine (2 of 2 - PCV13) Pneumococcal 65+ years Vaccine (2 of 2 - PCV13) [place] Start: 08-27-2008 DEXA (modify frequen cy per FRAX score) DEXA (modify frequency per FRAX score) [place] Start: 08-27-2008 Pneumococcal 65+ yea rs Vaccine (1 of 2 - PCV13) Pneumococcal 65+ years Vaccine (1 of 2 - PCV13) [place] Start: 2003 RSV Immunization age d 60 or older (1 - 1-dose 60+ series) RSV Immunization aged 60 or older (1 - 1-dose 60+ series) [facility] Start: 08-27-1993 Colon cancer screen colonoscopy Colon cancer screen colonoscopy [place], [place] Start: 08-27-1993 Shingles Vaccine (1 of 2) Shingles Vaccine (1 of 2) [place] Start: 08-27-1962 DTaP/Tdap/Td vaccine (1 - Tdap) DTaP/Tdap/Td vaccine (1 - Tdap) [facility] Start: 08-27-1962 DTaP/Tdap/Td Vaccine s (1 - Tdap) DTaP/Tdap/Td Vaccines (1 - Tdap) [facility] Start: 08-27-1961 Hepatitis C screening Hepatitis C Sc reening [facility] Start: 1959 COVID-19 Vaccine (1 of 2) COVID-19 Vaccine (1 of 2) [facility] Work Phone: Start: 1959 COVID-19 Vaccine (1) COVID-19 Vaccin e (1) [facility] Work Phone: Start: 08-27-1953 Diabetic foot examination Diabetes: Foot Exam [facility] Start: 08-27-1953 Glaucoma screening Diabetes: R etinopathy Screening [facility] Start: 08-27-1953 Preventive dental service Diabetes: Dental Exam [facility] Start: 1943 Hepatitis B Vaccines (1 of 3 - 3-dose series) Hepatitis B Vaccines (1 of 3 - 3-dose series) [facility] Start: 1943 Hepatitis C screening Hepatitis C sc reen [facility] Work Phone: Start: 1943 Thyroid stimulating hormone measurement TSH Level [facility] Dressing Order: Xeroform; Daily; Silicone foam borders (multiple sizes) Dressing Order: Xeroform; Daily; Silicone foam borders (multiple sizes) Wound Ostomy Routine Ordered: 02/15/2023 [facility] Work Phone: Comment on above: Ordered: 02/15/2023 EKG 12 Lead EKG 12 Lead ECG Routine 02/01/2019 7:40 PM EDT [facility] [place] Patient referral [facility] Work Phone: Tissue exam [facility] Work Phone: Comment on above: Release Upon Ismaelin g for 1 Occurrences starting 12/07/2022, 1 completed Immunizations Immunization Date Immunization Notes Care Provider Jenny gale 03-17-2023 Influenza High-Dose Quadrivalent [facility] 03-17-2023 influenza virus vacc ine, unspecified formulation Felicia Garcia LPN [facility] 03-01-2023 Influenza Vac A&B SA Adj quadrivalent (Fluad) vaccine 0.5 mL Tasneem Whaley MD Work Phone: [facility] 04-26-2022 influenza, high dose seasonal, preservative-free Shiv Lopez MD Work Phone: [facility] 04-26-2022 Pneumococcal Conjuga te PCV20, Pf (Prevnar 20) Shiv Lopez MD Work Phone: [facility] 04-26-2022 influenza virus vacc ine, unspecified formulation Katia Granados CURAM DEVELOPER - MODERN LANGUAGES PROFESSOR Work Phone: [facility] 04-26-2021 COVID-19, Moderna, Primary or Immunocompromised, PF, 100mcg/0.5mL Sommer Chatterjee DPM Work Phone: [facility] Work Phone: 03-31-2021 Influenza, Quadv, adjuvanted, 65 yrs +, IM, PF (Fluad) Sommer Chatterjee DPM Work Phone: [facility] Work Phone: 03-31-2021 pneumococcal polysaccharide vaccine, 23 valent Sommer Chatterjee DPM Work Phone: [facility] Work Phone: 03-31-2021 zoster vaccine recombinant Sommer Chatterjee DPM Work Phone: [facility] Work Phone: 08-27-2020 COVID-19, J&J, PF, 0 .5 mL Shiv Lopez MD Work Phone: [facility] Work Phone: 03-31-2020 influenza virus vacc ine, unspecified formulation [facility] Work Phone: 03-31-2020 Influenza, Quadv, adjuvanted, 65 yrs +, IM, PF (Fluad) Shiv John [facility] Work Phone: 06-03-2019 influenza, high dose seasonal, preservative-[facility]2018 influenza, high dose seasonal, preservative-free Darya Berrios [facility] 05-13-2013 influenza virus vacc ine, unspecified formulation Darya Berrios [place], [place] 05-13-2013 influenza virus vacc ine, whole virus Shiv John [facility] Work Phone: 03-09-2012 pneumococcal Conjuga te, unspecified formulation [facility] Work Phone: 03-09-2012 pneumococcal polysaccharide vaccine, 23 valdevonte MERCADO 03-09-2012 pneumococcal vaccine , unspecified formulation [facility] 04-13-2010 pneumococcal polysaccharide vaccine, 23 valdevonte MERCADO 03-21-2001 pneumococcal polysaccharide vaccine, 23 valdevonte Berrios [place], [place] Payers Date Payer Category Payer Self-pay [id number] 2024 Unknown [id number] 2024 Unknown [id number] 2022 Medicare HUMANA MEDICARE ADVANTAGE HUMANA MEDICARE [id number] 2022-Present [address] [place] [address] Medicare HMO [id number] 2020 Medicare [id number]. [id number] 2020 Medicare [id number]. [id number] 2018 Medicare HUMANA MEDICARE HUMANA CHOICE-PPO MEDICARE xxxxxxxxx 2018-Present [address] [address] [place] [address] xxxxxxxxx [id number]. [id number] Private Health Insurance [facility] [id number] Unknown Unknown [id number] WELL CARE DUAL ACCESS [id number] Unknown [id number] 2.16.840.1.769824.3.579.2. 462 Unknown [id number] 2.16.840.1.006774.3.579.2. 462 Unknown [id number] 2.16.840.1.303880.3.579.2. 462 Unknown [id number] 2.16.840.1.701000.3.579.2. 462 Unknown [id number] 2.16.840.1.520178.3.579.2. 462 Unknown [id number] 2.16.840.1.190301.3.579.2. 462 Unknown [id number] 2.16.840.1.595726.3.579.2. 462 Unknown [id number] 2.16.840.1.569329.3.579.2. 462 Unknown [id number] 2.16.840.1.916294.3.579.2. 462 Unknown [id number] 2.16.840.1.340986.3.579.2. 462 Unknown [id number] 2.16.840.1.576325.3.579.2. 462 Unknown [id number] 2.16.840.1.120468.3.579.2. 462 Unknown [id number] 2.16.840.1.959307.3.579.2. 462 Unknown [id number] 2.16.840.1.080998.3.579.2. 462 Unknown [id number] 2.16.840.1.643116.3.579.2. 462 Unknown [id number] 2.16.840.1.631977.3.579.2. 462 Unknown [id number] 2.16.840.1.042323.3.579.2. 462 Unknown [id number] 2.16.840.1.755603.3.579.2. 462 Unknown [id number] 2.16.840.1.684813.3.579.2. 462 Unknown [id number] 2.16.840.1.835880.3.579.2. 462 Unknown [id number] 2.16.840.1.000862.3.579.2. 462 Unknown [id number] 2.16.840.1.192579.3.579.2. 462 Unknown [id number] 2.16.840.1.496519.3.579.2. 462 Unknown [id number] 2.16.840.1.583687.3.579.2. 462 Unknown [id number] 2.16.840.1.615598.3.579.2. 462 Unknown [id number] 2.16.840.1.429773.3.579.2. 462 Unknown [id number] 2.16.840.1.785454.3.579.2. 462 Unknown [id number] 2.16.840.1.611308.3.579.2. 462 Unknown [id number] 2.16.840.1.080516.3.579.2. 462 Unknown [id number] 2.16.840.1.310644.3.579.2. 462 Unknown [id number] 2.16.840.1.672189.3.579.2. 462 Social History Date Type Detail Facility Start: 07-13-2020 End: 03-03-2023 Tobacco smoking status WAIS Never smoker [place] Start: 07-13-2020 End: 04-09-2022 Tobacco use and exposure Never used [employer] Phone: Start: 07-13-2020 End: 06-30-2022 Alcohol intake Current drinker of alcohol (finding) [employer] Phone: Start: 01-13-2015 Alcohol Comment Social [place], [place] Start: 1945 Sex Assigned At Female [facility] Work Phone: Start: 08-30-2021 End: 02-28-2023 Exposure to SARS-CoV-2 (event) Not sure [email or web address] Work Phone: Start: 01-18-2019 End: 12-13-2022 Alcohol intake Yes [facility] Sex Assigned At Not on file [facility] [place] Start: 02-01-2019 End: 03-03-2023 Tobacco smoking status NHIS Unknown if ever smoked [facility] Start: 10-14-2020 End: 12-13-2022 Alcohol intake [facility] Start: 02-16-2021 End: 04-26-2022 History SDOH Alcohol Frequency 1 [email or web address] Work Phone: Start: 02-15-2021 End: 04-26-2022 History SDOH Financial 3 [email or web address] Work Phone: Start: 02-15-2021 End: 04-26-2022 History SDOH Transport Med 2 [email or web address] Work Phone: Start: 04-09-2022 Alcohol Comment social [facility] Within the last year , have you been afraid of your partner or ex-partner? No [facility] How often to you hav e a drink containing alcohol? 2-4 times a month [facility] How many standard dr inks containing alcohol do you have on a typical day? 1 or 2 [facility] How often do you hav e 6 or more drinks on 1 occasion? Never [facility] How hard is it for y ou to pay for the very basics like food, housing, medical care, and heating Hard [facility] (I/We) worried jagruti er (my/our) food would run out before (I/we) got money to buy more. Never true [facility] In the past 12 month s, has lack of transportation kept you from medical appointments or from getting medications? No [facility] Start: 12-07-2022 Alcohol Comment social; 1 mixed drink every [address] [facility] Start: 04-07-2022 Gender identity Identifies as female gender (finding) [facility] Start: 04-07-2022 Sexual orientation Heterosexual (finding) [facility] Do you feel stress - tense, restless, nervous, or anxious, or unable to sleep at night because your mind is troubled all the time - these days [OSQ] Only a little [facility] Are you now , , , , never or living with a partner? [facility] Start: 09-18-2024 End: 10-14-2024 Sex Female (finding) [facility] Medical Equipment Procedure Code Equipment Code Equipment Origin al Text Equipment Identifier Dates Test blood sugar 4 times a day [id number] Start: 03-25-2020 End: 10-01-2020 2 daily [id number] Start: 03-20-2019 Test blood sugar 4 times daily [id number] Start: 01-01-2019 test blood sugar 4 times daily [id number] Start: 01-13-2020 300 each by Does not apply route 4 times daily [id number] Start: 01-01-2019 ASSURE COMFORT LANCETS 30G MISC [id number] Start: 09-07-2016 1 each by In Vit ro route 4 times daily [id number] Start: 01-01-2019 4 times a day [id number] Start: 09-22-2017 2 daily [id number] Start: 01-03-2019 4 times a day [id number] Start: 07-25-2018 1 each by In Vit ro route 4 times daily as needed (patient tests four times daily and as needed) Patient tests QID [id number] Start: 03-01-2021 Test blood sugar 4 times daily [id number] Start: 12-18-2020 1 each by In Vit ro route 4 times daily Accu-check [employer] [facility] [id number] Start: 06-22-2021 End: 08-05-2021 Test blood sugar 3 times a day.PLEASE FILL FOR QUIK TEST STRIPS [id number] Start: 09-09-2021 [id number] Start: 01-10-2022 End: 03-03-2023 Goals Date Patient Goal Desired Activity /State Comment on above: Self- Management Aliya n: Obesity/Weight Loss Patient Stated Goal: Weight Loss Barriers to success: none Plan for overcoming my barriers: help from doctor. Encouraged and recommended by provider. Confidence: 5/10 Self-Management Plan: Will strive to achieve goal by 2017 Date goal set: 10/06/16 Patient given educational [...] Facility 03-18-2023 Functional status Ambulates;Wilson r;Bathroom Privilege [facility] Work Phone: Mental Status Date Assessment Result Facility 03-18-2023 Cognitive function Voice/Name [facility] Work Phone: 03-18-2023 Cognitive function Appropriate;Tayler fonseca [facility] Work Phone: Clinical Notes 06-30-2022 to 12-29-2023 Felicia Garcia LPN - 12/29/2023 1:02 PM EDTRyolanda Garcia LPN - 12/29/2023 1:02 PM EDTAshia Dumont - 12/29/2023 1:02 PM EDT Note Date & Type Note Facility 12-29-2023 History of Presen t illness Narrative Please schedule AWV. documented in this encounter [facility] 12-29-2023 History of Presen t illness Narrative Please schedule AWV. Called patient---phone number is not working--sent letter by mail. documented in this encounter [facility] 05-19-2023 Note THE PT. WAS SCHEDULE D FOR AN OUTREACH TODAY. EMR REVIEWED. CM CALLED AND SPOKE WITH A STAFF MEMBER AT [facility] AND THE PT. IS STILL ADMITTED TO THE [facility]ITENTIARY FACILITY. CM WILL CONTINUE TO FOLLOW-UP WITH THE PT. ONCE SHE IS DISCHARGED TO HOME. [facility] 05-03-2023 Note THE PT. WAS SCHEDULE D FOR AN OUTREACH TODAY. EMR REVIEWED. CM CALLED AND SPOKE WITH A STAFF MEMBER AT [facility] AND THE PT. IS STILL ADMITTED TO THE PENITENTIARY FACILITY. CM WILL CONTINUE TO FOLLOW-UP WITH THE PT. ONCE SHE IS DISCHARGED TO HOME. [facility] 03-29-2023 Note Referral from [employer] Daily Census Report. Patient with recent admit to [facility] 02/28-03/03 with LING/functional decline and was discharged to [facility] SNF. Patient with several chronic diagnoses. Will send referral to [facility] Shari BARROW, for further chart review and potential ongoing CM. [facility] 03-17-2023 Discharge summary Note Date/Time March 15, 2023 7:15pm [facility] Medical Records Department [address] [place] [address] Discharge Summary 03/15/231913 MR#: [id number] Acct: [id number] Name: RADHA SANDOVAL Rep #:[id number] : 1945 77 From: Baljit Jaffe MD PCP: Dr. Shiv Lopez MD Status:ADM IN [place] [address] Providers Date of Admission: 03/03/23 Primary Care [...] - Buspar 5mg bid prn, stable chronic [facility] use, GDR not recommended. 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 * Restless Leg [...] unit/mL subcutaneous solution 19 unit subcut DAILY Bdjpguza01/15/23 insulin lispro 100 unit/mL subcutaneous pen (Humalog [...] before D/C Order can be placed): NonSkilled [place] 03/15/231933 <Electronically signed by Baljit Jaffe [...] bid x 10 days, culture pending at [facility] lab. 03/17/23 1545<Electronically signed by Baljit Jaffe MD> Cosigner Signature (if applicable): cc: Dr. Shiv Lopez MD; Dr. Baljit Jaffe MD ~* Signed [facility] Work Phone: 1(833) 441-311509-27-2023 Discharge summary Author Baljit Jaffe [facility] March 15, 2023 7:35pm Note Date/Time March 15, 2023 7:35pm [facility] Medical Records Department [address] [place] [address] Transfer to [facility] MR#: [id number] Acct: [id number] Name: RADHA SANDOVAL Rep #:[id number] : 1945 77 From: Baljit Jaffe MD PCP: Dr. Shiv Lopez MD Status:ADM IN Certification of patient admission REQUIRED AT TIME OF ADMISSION. I CERTIFY THAT POST-HOSPITAL ECF SERVICES ARE REQUIRED TO BE GIVEN ON AN IN-PATIENT BASIS BECAUSE OF THE ABOVE NAMED PATIENT'S NEED FOR FDC CARE ON A CONTINUING BASIS FOR THE CONDITION(S) FOR WHICH HE/SHE WAS RECEIVING IN-PATIENT HOSPITAL SERVICES PRIOR TO HIS/HER TRANSFER TO THE ECF. 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 * Vitamin [...] Depression - Paroxetine 20mg qhs, stable chronic [facility] use, GDR not recommended. * Restless Leg [...] ALEXI Huitron; Dr. Shiv Lopez MD ~ [facility] Work Phone: 1(705) 999-851109-27-2023 NotePlease send her immunization record [facility]09-20-2023 Consult note Author Shine Rojas [facility] March 08, 2023 11:33am Note Date/Time March 08, 2023 11:33am [facility] Medical Records Department [address] [place] [address] Consultation 03/08/23 1130 MR#: [id number] Acct: [id number] Name: RADHA SANDOVAL Rep #:[id number] : 1945 77 From: Shine Rojas DPM PCP: Dr. Shiv Lopez MD Status:ADM IN Location: [place] [address] Assessment & Plan Assessment/Plan (1) Type 2 [...] controlled today not causing patient any issues. [facility] Medical History Anemia Arthritis Chronic pain [...] unit/mL subcutaneous solution 19 unit subcut DAILY Cvzdimlv26/15/23 [History Last Taken 03/03/23] insulin lispro 100 [...] Lopez MD; Dr. Baljit Jaffe MD~ Signed [facility] Work Phone: 1(991) 360-556509-19-2023 Progress note Author Betty Hicks [facility] March 07, 2023 4:16pm Note Date/Time March 07, 2023 3:00pm [facility] Medical Records Department [address] [place] [address] Progress Note - Pharmacy 03/07/23 1456 MR#: [id number] Acct: [id number] Name: RADHA SANDOVAL Rep #:[id number] : 1945 77 From: Betty Hicks PCP: Dr. Shiv Lopez MD Status:ADM IN Location: [place] [address]-1 TCU RX Drug Regimen Review Subjective/Objective Subjective/Objective: [...] 113 Gm Tube TOPICAL 1 applic BID [facility] Administration Protocol Enoxaparin Sodium 40 mg 03/04/23 06:00 03/07/23 06:43 Enoxaparin 40 Mg/0.4 Ml Syringe SC 40 mg DAILY@0600 [facility] Administration Ergocalciferol 1.25 mg 03/10/23 08:00 Ergocalciferol 1.25 Mg (50, 000 Unit) Capsule PO QWEEK [facility] Hydralazine HCl 25 mg 03/03/23 22:00 [...] Cosigner Signature (if applicable): CC: ~ Signed [facility] Work Phone: 1(935) 977-952609-15-2023 History and physical note Author Baljit Jaffe [facility] March 03, 2023 4:39pm Note Date/Time March 03, 2023 3:08pm [facility] Medical Records Department [address] [place] [address] History & Physical Exam 03/03/23 1501 MR#: [id number] Acct: [id number] Name: RADHA SANDOVAL Rep #:[id number] : 1945 77 From: Baljit Jaffe MD PCP: Dr. Shiv Lopez MD Status:ADM IN Location: [facility] TCU06-1 HPI - General General Date of Admission: 03/03/23 Date of Service: 03/03/23 Chief Complaint: Here for rehabilitation. HPI Narrative RADHA SANDOVAL, is a 77 Female who presents with followin02/27/2023 Dr. Shiv Lopez prescribed Augmentin for dysuria, polyuria, low back pain for urinary tract infection. Augmentin not started, symptoms worse, patient presented to ED. 02/28/2023 Admit to [facility]. Low back pain, dysuria, polyuria, weakness. Diabetes with hyperglycemia, weakness, urinary tract infection. IV antibiotics for urinary tract infection. IV fluids, sliding scale insulin for Diabetes Mellitus II. PT/OT for weakness. 03/01/2023 Feels better, weak, pain improved. Continue IV antibiotics. 03/03/2023 Admit to TCU with debility, here for rehabilitation, strengthening, prior to discharge home alone. [facility] Medical History Anemia Arthritis Chronic pain [...] unit/mL subcutaneous solution 19 unit subcut DAILY Tkbxmmau45/15/23 [History Last Taken 03/03/23] insulin lispro 100 [...] - Buspar 5mg bid prn, stable chronic [place] [facility] use, GDR not recommended. * Vitamin D [...] Depression - Paroxetine 20mg qhs, stable chronic [place] [facility] use, GDR not recommended. * Restless Leg syndrome - Mirapex 0.25mg qhs. 03/03/23 8415 <Electronically signed by Baljit Jaffe MD> Cosigner Signature (if applicable): CC: Dr. Shiv Lopez MD; Dr. Baljit Jaffe MD~ Signed [facility] Work Phone: 1(885) 228-146009-15-2023 History of Present illness Narrative* Randi Marquez RN - 03/03/2023 1:08 PM EDT Discharged via ambulance to [facility] * Randi Marquez RN - 03/03/2023 11:19 AM EDT Report called to pippa at [facility] at [phone] * Jelly Paz APRN - MODERN LANGUAGES PROFESSOR - 03/02/2023 12:54 PM EDT Images from the original note were not included. Department of Internal Medicine Division of Endocrinology, Diabetes, & Metabolism Endocrinology Note Patient Name: Radha Sandoval : 1945 AGE: 77 y.o. Room/Bed: [facility]/[address] Admission Date: 02/28/2023 Visit Date: 03/02/2023 Reason for Endocrine Consult: DM-Uncontrolled Provider/Team Requesting Consult: Dr. 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 She has been having diarrhea in [id number], smt severe Glimepiride- started in 2015 Trulicity [...] CHOLHDLRATIO 4 02/16/2021 No results found for: [id number] Lab Results Component Value Date TSH 0.03 (L) 02/27/2023 Radiology reportsas per the Radiologist Radiology: CT abdomen pelvis wo IV contrast Result Date: 02/28/2023 [facility] 1945 [id number] ExamDate/Time: 02/28/2023 13:07 Procedure: CT ABDOMEN PELVIS [...] 12/07/2022 Performed by Avery Marshall DO at [facility] ENDOSCOPY EYE SURGERY Bilateral early 90's [...] were not included. Occupational Therapy OCCUPATIONAL THERAPY [facility] Treatment Note Name/MRN: Radha Sandoval ([id number]) Date of : 1945 Age: 77 y.o. Room/Bed: [facility] A Visit #: 1 [...] were not included. Hospitalist Progress Note 03/02/2023 [phone]: Please secure chat me for patient care issues. [phone]: Please secure chat [facility] Hospitalist for any issues. Subjective: Admit Date: 02/28/2023 PCP: Shiv Lopez MD Room#: [facility] A Interval History: Tolerating diet. Remains weak. Still urinating frequently. She denies chest pain,sob, cough, abdominal pain, nausea, vomiting, diarrhea, constipation, fevers, or chills. D/w pt Adult diet Regular; Low Sodium (2 gm); 4 carb choices (60 gm/meal) @GYWT4FEVCFT@ 24HR INTAKE/OUTPUT: No intake or output data [...] Information Primary Emergency Contact: Angel Roger Address: [address] of [place] Relation: Child GABRIELLE FINCH MD Division of Hospitalist Medicine [facility] PAGER: [employer] chat * Diann Ca Telma, CURAM DEVELOPER - MODERN LANGUAGES PROFESSOR - 03/02/2023 9:31 AM EDT [facility] Geriatric Medicine Inpatient Consult Service Admission Date: 02/28/2023 Assessment Principal Problem: LING (acute kidney injury) (CMS/HCC) ([facility]) Active Problems: Declining functional status Weakness Anxiety Polypharmacy DNR (do not resuscitate) Insomnia Plan Declining functional status -Related to physical deconditioning, UTI, advanced age, diabetes type 2 -Continue PT/OT as able while inpatient -Anticipate d/c to SNF for ongoing daily PT/OT, patient agreeable to go to [facility] Fall Weakness -Multiple risk factors including [...] contact guard. Ambulated 30 ft x2. Recommending long-term facility . Review of Systems Constitutional: Negative [...] syringe 40 mg, 40 mg, SubCUTAneous, Daily, Gabirelle Finch MD, 40 mg at 03/02/23908 glucagon (human recombinant) injection 1 mg, 1 mg, IntraMUSCular, PRN, Gabrielle Finch MD glucose oral gel 15 g, 15 g, Oral, PRN, Tasneem Whaley MD Influenza Vac A&B SA Adj quadrivalent (Fluad) vaccine 0.5 mL, 0.5 mL, IntraMUSCular, Prior to discharge, Gabrielle Finch MD insulin glargine (Lantus) injection 19 Units, 19 Units, SubCUTAneous, q AM, Jelly Paz, CURAM DEVELOPER - MODERN LANGUAGES PROFESSOR, 19 Units at 03/02/23908 Insulin Lispro (Humalog) injection 0-12 Units, 0-12 Units, SubCUTAneous, TID WC, 2 Units at 03/02/23908 AND [DISCONTINUED] Insulin Lispro (Humalog) injection 0-12 Units, 0-12 Units, SubCUTAneous, Nightly, Gabrielle Finch MD, 4 Units at 02/28/232053 Insulin Lispro (Humalog) injection 6 Units, 6 Units, SubCUTAneous, 4x daily AC & HS, Jelly Paz, CURAM DEVELOPER - MODERN LANGUAGES PROFESSOR, 6 Units at 03/02/23604 levothyroxine (Synthroid, Levoxyl) [...] 0.03 (L) 02/27/2023 No results found for: [id number] Lab Results Component Value Date VITD25 17 (L) 03/02/2023 Reviewed: allergies, previous encounters, imaging, active problem lists, medications, and labs * Edelmira Hanna - 03/02/2023 8:23 AM EDT Nutrition rescreen completed. Pt referred to RD for uncontrolled DM, and nutrition supplement per Wound Care. * Monet Mcdonnell, PT - 03/01/2023 3:47 PM EDT Physical Therapy Facility/Department: [address] Physical Therapy Initial Evaluation NAME: Radha Sandoval : 1945 Date of Service: 03/01/2023 Discharge Recommendations: Fdc Facility, Continue to assess pending progress PT [...] diagnosis was LING (acute kidney injury) (CMS/HCC) ([facility]). Diagnoses of Pyelonephritis, Polypharmacy, Insomnia, unspecified type, [...] Device: straight cane Transfer Assistance: Independent Active Primary School Principal: Yes Objective Observation/Palpation Posture: Good Observation: PIV [...] note were not included. Hospitalist Progress Note 03/01/[phone]: Please secure chat me for patient care issues. [phone]: Please secure chat [facility] Hospitalist for any issues. Subjective: Admit Date: 02/28/2023 PCP: Shiv Lopez MD Room#: B1-153/B1-153 A Interval History: Feels better. Weak. Tolerating diet. Pain markedly improved. She denies chest pain, sob, cough, abdominal pain, nausea, vomiting, diarrhea, constipation, fevers, or chills. D/w pt and Geriatrics separately. Adult diet Regular; Low Sodium (2 gm); 4 carb choices (60 gm/meal) @[id number]@ 24HR INTAKE/OUTPUT: No intake or output data [...] Primary Emergency Contact: Angel Roger Address: [address] [place] Relation: Child GABRIELLE FINCH MD Division of Hospitalist Medicine [facility] PAGER: [employer] chat * Gunner Roberts OT - 03/01/2023 11:54 AM EDT Images from the original note were not included. Occupational Therapy OCCUPATIONAL THERAPY [facility] Initial Evaluation Name/MRN: Radha Sandoval ([id number]) Evaluation Date: 03/01/2023 Date of : 1945 Admission Date: 02/28/2023 11:30 AM Age: 77 y.o. Room/Bed: Banner153/[facility] A Discharge Recommendation: SNF and Continue to [...] (restless legs syndrome) Type 2 diabetes mellitus ([facility]) Varicella Past Surgical History: Past Surgical History: Procedure Laterality Date APPENDECTOMY CHOLECYSTECTOMY 1979 COLONOSCOPY 06/19/2008 COLONOSCOPY W/ BIOPSIES AND POLYPECTOMY N/A 12/07/2022 Performed by Avery Marshall DO at [facility] ENDOSCOPY EYE SURGERY Bilateral early 90's LUNG REMOVAL, PARTIAL Left ROTATOR CUFF REPAIR Left TONSILLECTOMY Admission Diagnosis: Patient Active Problem List Diagnosis Date Noted LING (acute kidney injury) ([facility]/HCC) (HCC) 02/28/2023 Acute cystitis with hematuria [...] Uncontrolled type 2 diabetes mellitus with hyperglycemia ([facility]) 01/16/2020 Morbidly obese ([facility]) 01/16/2020 Vitamin D deficiency 01/16/2020 Moderate episode of recurrent major depressive disorder ([facility]) 06/03/2019 Chronic renal insufficiency, stage III (moderate) ([facility]) 06/03/2019 Hyperlipidemia with target LDL less than [...] Responsibilities: Independent Receives Help From: None Active Primary School Principal: Yes Prior Level of Function ADL Assistance: [...] of Care supervision is transferred to a [facility] Therapy Services Occupational Therapist. Goals and/or treatment plan was established in collaboration with patient/family/other representatives. documented in this [facility]09-15-2023 Hospital course Narrative* Gabrielle Finch MD [...] wound care RECOMMENDED NEXT STEPS: Transferred to [facility] SNF. Continue close monitoring of BG. Avoid [...] gross lesions, rashes LABS: CBC: Recent Labs 03/01/23 0344 03/02/23 0400 03/03/23 0130 WBC 13.8* 9.5 9.0 [...] mg) by mouth daily. ergocalciferol 1.25 MG (30513 UT) capsule Commonly known as: Vitamin D-2 [...] Your Medications These medications were sent to [facility] [address] [place] [address] Hours: Monday to Monday 10 am to [...] Complexity: follow up within 7-14 calendar days (55363) [] Severe Complexity: follow up within 7 calendar days (43786) FOLLOW UP TESTING, PENDING RESULTS OR REFERRALS AT TRANSITIONAL CARE VISIT: [] Yes [] No PENDING STUDIES: No DISPOSITION: SNF FACILITY/HOME CARE AGENCY NAME: [facility]F [facility] [address] [facility] [address] [facility] [address] INSTRUCTIONS TO MA/SW: Please call [...] FINCH MD 03/03/2023, 5:28 PM documented in [facility]09-15-2023 NoteDischarge Summary Radha Sandoval : 1945 ADMIT [...] wound care RECOMMENDED NEXT STEPS: Transferred to [facility] SNF. Continue close monitoring of BG. [...] mg) by mouth daily. ergocalciferol 1.25 MG (98870 UT) capsule Commonly known as: Vitamin D-2 [...] taking these medications amoxicillin-clavulan (more content not included)...[facility] 03-03-2023 Note* Care Coordination - Ester Lipscomb - 03/03/2023 11:21 AM EDT Discharge med list transmitted to [facility] via Careport per TCC request. [facility] [id number] Miscellaneous Notes* Restricted notes were excluded * Care Coordination - Ester Lipscomb - 03/03/2023 11:21 AM EDT Discharge med list transmitted to [facility] via Careport per TCC request. * Care Coordination - Unknown Case Management - 03/03/2023 11:20 AM EDT Patient Choice Patient Name: RADHA SANDOVAL Date of : 1945 All Providers Sent Referral Name: [facility] Address: [address] [place], [place] [id number] Name: [facility] Address: [address] [place], [place] [id number] * Care Coordination - Laura Jackson RN - 03/03/2023 9:33 AM EDT Spoke with pt at bedside regarding POA, pt states she is not interested at this time to complete itand would consider completing at [facility] - did call Rafaela at [facility] to update her as well. * Care Coordination - COLT Hill - 03/03/2023 8:41 AM EDT Transportation arranged through [facility] by cot set for 10 am machine pecan picker. Will notify RN and TCC of this in rounds. Notified patient's son via phone of transportation time. SW remains available if any other needs concerns arise. * Care Coordination - Laura Jackson RN - 03/03/2023 7:29 AM EDT Insurance auth obtained for [facility], updated Dr Finch notified via [employer]. * Care Coordination - Laura Jackson RN - 03/02/2023 11:15 AM EDT Received a call from Rafaela at [facility], they are able to accept, pt agreeable. surveillance supervisor tasked to start [employer] auth for [facility] at this time * Care Coordination - Ester Lipscomb - 03/02/2023 8:40 AM EDT Referral placed to SNF- [facility] via [facility] per TCC request. Await review and response regarding ability to accept. TCC notified. * Care Coordination - Laura Jackson RN - 03/02/2023 8:21 AM EDT Spoke with pt agreeable for referral to [facility] snf and apostolic, LEVI MAKER tasked to complete * Home Care - Tasneem Anaya LPN - 03/01/2023 4:25 PM EDT Osteopathic Neurologist following case for Discharge Needs. Therapy states SNF, but Patient wants HC instead. * Care Coordination - Laura Jackson RN - 03/01/2023 10:14 AM EDT Care Managment Initial Assessment Date: 03/01/2023 Patient Name: Radha Sandoval : 1945 Patient Information Source of Information: Patient Cognition/Language: WFL - Within Functional Limits Permission given to speak with patient uniforms sales representative/caregiver as indicated: Yes Confirmation of Payer with patient/family: Yes Payer Name: [employer] [place]: No Confirmation of Primary Care Physician: Confirmed [...] Prescription Coverage: Yes Pharmacy Used: [facility] Medication Management: Independent Transportation/Shopping: Independent Transportation Mode: [...] in SNF but would be able to [facility]. [place] liaison following, TCC to assist and follow as needed. Laura Jackson RN * Care Plan - Anaya Carr RN - 02/28/2023 6:10 PM EDT Problem: Pain - Adult Goal: Verbalizes/displays adequate comfort level or baseline comfort level Outcome: Progressing Problem: Safety - Adult Goal: Free from fall injury Outcome: Progressing documented in this [facility]09-15-2023 Note* Care Coordination - Unknown Case Management - 03/03/2023 11:20 AM EDT Patient Choice Patient Name: RADHA SANDOVAL Date of : 1945 All Providers Sent Referral Name: [facility] SNF Address: [address] [place] [address] Name: [facility] Cheryl. Address: [address] [phone] [facility] [id number] Note* Care Coordination - Laura Jackson RN - 03/03/2023 9:33 AM EDT Spoke with pt at bedside regarding POA, pt states she is not interested at this time to complete itand would consider completing at [facility] - did call Rafaela at [facility] to update her as well. [facility] [id number] Note* Care Coordination - COLT Hill - 03/03/2023 8:41 AM EDT Transportation arranged through [facility] by cot set for 10 am machine pecan picker. Will notify RN and TCC of this in rounds. Notified patient's son via phone of transportation time. SW remains available if any other needs concerns arise. [facility] [id number] Note* Care Coordination - Laura Jackson RN - 03/03/2023 7:29 AM EDT Insurance auth obtained for [facility] nursing [facility], updated Dr Finch notified via [employer]. [facility] [id number] Note* Care Coordination - Laura Jackson RN - 03/02/2023 11:15 AM EDT Received a call from Rafaela at [facility], they are able to accept, pt agreeable. surveillance supervisor tasked to start [employer] auth for [facility] at this time [facility] [id number] NoteHospitalist Progress Note 03/02/2023 [phone]: Please secure chat me for patient care issues. [phone]: Please secure chat [facility] Hospitalist for any issues. Subjective: Admit Date: 02/28/2023 PCP: Shiv Lopez MD Room#: B1-153/B1-153 A Interval History: Tolerating diet. Remains weak. Still urinating frequently. She denies chest pain, sob, cough, abdominal pain, nausea, vomiting, diarrhea, constipation, fevers, or chills. D/w pt Adult diet Regular; Low Sodium (2 gm); 4 carb choices (60 gm/meal) @[id number]@ 24HR INTAKE/OUTPUT: No intake or output data [...] - Date - 03/03 - Location - [facility] - Pending the following - clinical improvement, [...] Information Primary Emergency Contact: Angel Roger Address: [address] [place] Relation: Child GABRIELLE FINCH MD Division of Hospitalist Medicine (more content not included)...[facility]09-14-2023 Note* Care Coordination - Ester Lipscomb - 03/02/2023 8:40 AM EDT Referral placed to [facility] via Careport per TCC request. Await review and response regarding ability to accept. TCC notified. [facility] [id number] NoteReferral placed to [facility] via Careport per TCC request. Await review and response regarding ability to accept. TCC notified. [facility]09-14-2023 Note* Care Coordination - Laura Jackson RN - 03/02/2023 8:21 AM EDT Spoke with pt agreeable for referral to [facility] snf and apostolic, LEVI MAKER tasked to complete [facility] [id number] NoteSpoke with pt agreeable for referral to [facility] snf and apostolic, LEVI MAKER tasked to complete [facility]09-13-2023 Note* Home Care - Tasneem Anaya LPN - 03/01/2023 4:25 PM EDT Osteopathic Neurologist following case for Discharge Needs. Therapy states SNF, but Patient wants HC instead. [facility] [id number] Consult note* Rosalinda Burrows APRN - JORGE - 03/01/2023 2:34 PM EDT Images from the original note were not included. [facility] CONSULT Note Radha Sandoval AGE: [...] Uncontrolled type 2 diabetes mellitus with hyperglycemia ([facility]) 01/16/2020 Morbidly obese ([facility]) 01/16/2020 Vitamin D deficiency 01/16/2020 Moderate episode of recurrent major depressive disorder ([facility]) 06/03/2019 OAB (overactive bladder) 05/06/2021 Localized edema 10/01/2020 Insomnia 04/06/2015 Dyspnea on exertion 09/09/2021 Muscle spasms of both lower extremities 09/09/2021 Chronic renal insufficiency, stage III (moderate) ([facility]) 06/03/2019 Restless legs syndrome (RLS) 01/14/2015 Hyperlipidemia [...] Depression Dietary counseling and surveillance Hyperlipidemia Hyperparathyroidism ([facility]) Malaise and fatigue Morbid obesity ([facility]) Muscle weakness Nevus, non-neoplastic Pain in limb Pure hypercholesterolemia RLS (restless legs syndrome) Type 2 diabetes mellitus (HCC) Varicella PAST SURGICAL HISTORY Past Surgical History: Procedure Laterality Date APPENDECTOMY CHOLECYSTECTOMY 1979 COLONOSCOPY 06/19/2008 COLONOSCOPY W/ BIOPSIES AND POLYPECTOMY N/A 12/07/2022 Performed by Avery Marshall DO at [facility] ENDOSCOPY EYE SURGERY Bilateral early 90's [...] tablet 0 ergocalciferol (Vitamin D-2) 1.25 MG (78262 UT) capsule Take 1 capsule (1.25 mg) [...] [facility] wound care [place] after hospital discharge. Thank you for the [...] reflectmy own independent evaluation of this patient. [facility] [id number] Consult note* ELSA Rosenbaum CNP - 03/01/2023 2:34 PM EDT Images from the original note were not included. [facility] CONSULT Note Radha Sandoval AGE: [...] Uncontrolled type 2 diabetes mellitus with hyperglycemia ([facility]) 01/16/2020 Morbidly obese ([facility]) 01/16/2020 Vitamin D deficiency 01/16/2020 Moderate episode of recurrent major depressive disorder ([facility]) 06/03/2019 OAB (overactive bladder) 05/06/2021 Localized edema 10/01/2020 Insomnia 04/06/2015 Dyspnea on exertion 09/09/2021 Muscle spasms of both lower extremities 09/09/2021 Chronic renal insufficiency, stage III (moderate) ([facility]) 06/03/2019 Restless legs syndrome (RLS) 01/14/2015 Hyperlipidemia [...] 12/07/2022 Performed by Avery Marshall DO at [facility] ENDOSCOPY EYE SURGERY Bilateral early 90' [...] tablet 0 ergocalciferol (Vitamin D-2) 1.25 MG (28033 UT) capsule Take 1 capsule (1.25 mg) [...] from the original note were not included. [facility] Geriatric Medicine Inpatient Consult Service Admission Date: 02/28/2023 Admission Status: INPATIENT Chief Complaint: I couldn't get around and they directed me to the hospital because I was peeing constantly from that UTI. Reason for Appointment Geriatrics consulted for functional decline Assessment/Plan Principal Problem: LING (acute kidney injury) (CMS/HCC) ([facility]) Active Problems: Declining functional status Weakness Anxiety [...] at our [facility] at [phone]. Call in 2 weeks for memory (re)testing once acute issue(s) resolve - order placed in [facility] for follow-up Other I deferred full MMSE [...] Healthcare Power ofAttorney: No Financial Power of Scrap Crane Operator: No Living Will:No Code Status: DNRCCA - [...] 12/07/2022 Performed by Avery Marshall DO at [facility] ENDOSCOPY EYE SURGERY Bilateral early 90' [...] GHANSHYAM COLEY Father LATHA COLEY Brother CATRACHO CLOEY (Not Specified) Parents are as above Review [...] Limits Permission given to speak with patient uniforms sales representative/caregiver as indicated: Yes Confirmation of [...] Prescription Coverage: Yes Pharmacy Used: [facility] Medication Management: Independent Transportation/Shopping: Independent Transportation Mode: [...] recommendations communicated to primary service I used [employer] messaging to message Dr. Finch on 03/01/23 at 12:35 to notify that geriatrics consult note has been completed and to page or call my personal cell with any questions. * Michelle Valle RN - 03/01/2023 9:33 AM EDTAssociated Order(s): IP CONSULT TO FIRER BOILER This patient is not a new diabetic or new to insulin therapy and therefore does not meet our current criteria for the inpatient diabetes education service. The clinical bedside RN should provide any necessary diabetes education using the Diabetes SurvivalSkills Booklet available on the unit. Please consider a dietary consult if appropriate and if not already ordered. Contact [facility] pharmacist for assistance if a new glucometer or any associated supplies are needed. Thank you. Elder MUÑOZ,BSN,[facility] * Jelly Paz APRN - MODERN LANGUAGES PROFESSOR - 03/01/2023 8:03 AM EDTAssociated Order(s): IP CONSULT TO ENDOCRINOLOGY Department of Internal Medicine Division of Endocrinology, Diabetes, & Metabolism Endocrinology Note Patient Name: Radha Sandoval : 1945 AGE: 77 y.o. Room/Bed: Banner153/Banner153 A Admission Date: 02/28/2023 Visit Date: 03/01/2023 Reason for Endocrine Consult: DM-Uncontrolled Provider/Team Requesting Consult: Dr. Finch PCP: Shiv Lopez MD Outpt Supervisor Laundry: No ASSESSMENT: Type II diabetes with hyperglycemia, with [facility] insulin use Postoperative hypothyroidism PLAN: Humalog 6 [...] diagnosis. She has been having diarrhea in [id number], smt severe Glimepiride- started in 2015 Trulicity [...] Pulse: 73 73 78 72 Resp: 16 Temp: 36.8 C (98.3 F) 36.4 [...] CHOLHDLRATIO 4 02/16/2021 No results found for: [id number] Lab Results Component Value Date TSH 0.03 (L) 02/27/2023 Radiology reportsas per the Radiologist Radiology: CT abdomen pelvis wo IV contrast Result Date: 02/28/2023 Patient Name: RADHA SANDOVAL : 1945 [facility]#: [id number] ExamDate/Time: 02/28/2023 13:07 Procedure: CT ABDOMEN PELVIS [...] 12/07/2022 Performed by Avery Marshall DO at [facility] ENDOSCOPY EYE SURGERY Bilateral early 90's [...] date of this note. documented in this [facility]09-13-2023 NoteHospitalist Progress Note 03/01/[id number]: Please secure chat me for patient care issues. [phone]: Please secure chat [facility] Hospitalist for any issues. Subjective: Admit Date: 02/28/2023 PCP: Shiv Lopez MD Room#: B1-153/B1-153 A Interval History: Feels better. Weak. Tolerating diet. Pain markedly improved. She denies chest pain, sob, cough, abdominal pain, nausea, vomiting, diarrhea, constipation, fevers, or chills. D/w pt and Geriatrics separately. Adult diet Regular; Low Sodium (2 gm); 4 carb choices (60 gm/meal) @[id number]@ 24HR INTAKE/OUTPUT: No intake or output data [...] Contact Information Primary Emergency (more content not included)...[facility] 03-01-2023 Hospital Discharge instructions* Discharge Instructions* [...] can also try over the counter (SENIOR LIVING brand like Nature Made) melatonin 3mg at [...] Information Primary Emergency Contact: Angel Roger Address: [address] [place] Relation: Child Past Surgical History: Past Surgical History: Procedure Laterality Date APPENDECTOMY CHOLECYSTECTOMY 1979 COLONOSCOPY 06/19/2008 COLONOSCOPY W/ BIOPSIES AND POLYPECTOMY N/A 12/07/2022 Performed by Avery Marshall DO at [facility] ENDOSCOPY EYE SURGERY Bilateral early 90's [...] * (Principal) LING (acute kidney injury) ([facility]) ([facility]) Diabetes mellitus due to underlying condition with diabetic chronic kidney disease ([facility]) DDD (degenerative disc disease), lumbar Chronic right-sided low back pain with right-sided sciatica Urinary frequency Chronic left shoulder pain Other chronic sinusitis Gastrointestinal bleed Hypokalemia Wound of right buttock Acute cystitis with hematuria Diarrhea Declining functional status Weakness Anxiety (Chronic) Polypharmacy (Chronic) DNR (do not resuscitate) Dependent edema Uncontrolled type 2 diabetes mellitus with hyperglycemia ([facility]) Morbidly obese ([facility]) Vitamin D deficiency Moderate episode of recurrent major depressive disorder ([facility]) OAB (overactive bladder) Localized edema Insomnia Dyspnea on exertion Muscle spasms of both lower extremities Chronic renal insufficiency, stage III (moderate) ([facility]) Restless legs syndrome (RLS) Hyperlipidemia with target [...] assistance Toileting Minimal assistance Feeding Minimal assistance Rf Test Engineer Minimal assistance Med Delivery yes Wound Care Documentation and Therapy: Wound/Incision 02/15/23 Pressure Injury Buttock Right;Midline (Active) Site Assessment Blanchable erythema;Clean;Dry;[place];Red 03/02/23 1100 Wound Length (cm) 1 cm [...] Score: @READMISSIONRISKDETAILS@ Discharging to Facility/ Agency Name: [facility] Donn Calderon Open 24 hours Dialysis Facility (if applicable) Name: Address: Dialysis Schedule: Phone: Fax: Pure Culture Operator/Adjunct Nursing Faculty signature: ICIAN SECTION Prognosis: good Condition at Discharge: stable Rehab Potential (if transferring to Rehab): excellent Recommended Labs or Other Treatments After Discharge: BMP/CBC in one week. MBS ac and hs Physician Certification: I certify the above information and transfer of Radha Sandoval is necessary for the continuing treatment of the diagnosis listed and that she requires half-way facility for less than 30 days. Update Admission H&P: No change in H&P PHYSICIAN SIGNATURE: documented in this [facility]09-13-2023 Consult note* Adam Holt MD - 03/01/2023 11:26 AM EDTAssociated Order(s): IP CONSULT TO GERIATRICS Images from the original note were not included. [facility] Geriatric Medicine Inpatient Consult Service Admission Date: 02/28/2023 Admission Status: INPATIENT Chief Complaint: I couldn't get around and they directed me to the hospital because I was peeing constantly from that UTI. Reason for Appointment Geriatrics consulted for functional decline Assessment/Plan Principal Problem: ILNG (acute kidney injury) ([facility]/HCC) ([facility]) Active Problems: Declining functional status Weakness Anxiety [...] at our [facility] at [phone]. Call in 2 weeks for memory (re)testing once acute issue(s) resolve - order placed in [facility] for follow-up Other I deferred full MMSE [...] Healthcare Power ofAttorney: No Financial Power of Scrap Crane Operator: No Living Will:No Code Status: DNRCCA - [...] 12/07/2022 Performed by Avery Marshall DO at [facility] ENDOSCOPY EYE SURGERY Bilateral early 90's [...] Limits Permission given to speak with patient uniforms sales representative/caregiver as indicated: Yes Confirmation of Payer with patient/family: Yes Payer Name: [employer] [place]: No Confirmation of Primary Care Physician: Confirmed [...] Prescription Coverage: Yes Pharmacy Used: [facility] Medication Management: Independent Transportation/Shopping: Independent Transportation Mode: [...] recommendations communicated to primary service I used Truliooaging to message Dr. Finch on 03/01/23 at 12:35 to notify that geriatrics consult note has been completed and to page or call my personal cell with any questions. [facility] [id number] Note* Care Coordination - Laura Jackson RN - 03/01/2023 10:14 AM EDT Care Managment Initial Assessment Date: 03/01/2023 Patient Name: Radha Sandoval : 1945 Patient Information Source of Information: Patient Cognition/Language: WFL - Within Functional Limits Permission given to speak with patient uniforms sales representative/caregiver as indicated: Yes Confirmation of Payer with patient/family: Yes Payer Name: [employer] [place]: No Confirmation of Primary Care Physician: Confirmed [...] Prescription Coverage: Yes Pharmacy Used: [facility] Medication Management: Independent Transportation/Shopping: Independent Transportation Mode: [...] in SNF but would be able to [facility]. [place] liaison following, TCC to assist and follow as needed. Laura Jackson RN [facility] [id number] Consult note* Michelle Valle RN - 03/01/2023 9:33 AM EDT Associated Order(s): IP CONSULT TO FIRER BOILER This patient is not a new diabetic [...] associated supplies are needed. Thank you. Elder MUÑOZ,BSN,[facility] [id number] Consult note* Jelly Paz, CURAM DEVELOPER - [facility] - 03/01/2023 8:03 AM EDTAssociated Order(s): IP CONSULT TO ENDOCRINOLOGY Department of Internal Medicine Division of Endocrinology, Diabetes, & Metabolism Endocrinology Note Patient Name: Radha Sandoval : 1945 AGE: 77 y.o. Room/Bed: [facility]/[address] Admission Date: 02/28/2023 Visit Date: 03/01/2023 Reason for Endocrine Consult: DM-Uncontrolled Provider/Team Requesting Consult: Dr. 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 She has been having diarrhea in 3089-6473, smt severe Glimepiride- started in 2015 Trulicity [...] chloride, 75 mL/hr, Last Rate: 75 mL/hr (02/28/239) PRN Meds:PRN medications: acetaminophen OR acetaminophen, albuterol, [...] CHOLHDLRATIO 4 02/16/2021 No results found for: [id number] Lab Results Component Value Date TSH 0.03 (L) 02/27/2023 Radiology reportsas per the Radiologist Radiology: CT abdomen pelvis wo IV contrast Result Date: 02/28/2023 Patient Name: [facility]AL [facility] 1945 [id number] ExamDate/Time: 02/28/2023 13:07 Procedure: CT ABDOMEN PELVIS [...] 12/07/2022 Performed by Avery Marshall DO at [facility] ENDOSCOPY EYE SURGERY Bilateral early 90's [...] state/prognosis on the date of this note. [facility] HospitalEklqlr24-71-3181 NoteProblem: Pain - Adult Goal: Verbalizes/displays adequate comfort level or baseline comfort level Outcome: Progressing Problem: Safety - Adult Goal: Free from fall injury [facility] Plan of care note* Care Plan - Anaya Carr RN - 02/28/2023 6:10 PM EDT Problem: Pain - Adult Goal: Verbalizes/displays adequate comfort level or baseline comfort level Outcome: Progressing Problem: Safety - Adult Goal: Free from fall injury Outcome: Progressing [facility] HospitalEyosje52-57-8601 History and physical note* Gabrielle Finch MD [...] 12/07/2022 Performed by Avery Marshall DO at [facility] ENDOSCOPY EYE SURGERY Bilateral early 90's [...] None Comment: W/ UNTIL HIS ADMITTANCE TO [facility] Other Topics Concern Not on file Social [...] tablet 0 ergocalciferol (Vitamin D-2) 1.25 MG (92010 UT) capsule Take 1 capsule (1.25 mg) [...] Information Primary Emergency Contact: Angel Roger Address: [address] [place] Relation: Child Code status: Prior [...] H&P to the patient's PCP. Thank you. [facility] HospitalBjfzoy96-30-4947 NoteAttending History and Physical Admit Date: 02/28/2023 [...] 12/07/2022 Performed by Avery Marshall DO at [facility] ENDOSCOPY EYE SURGERY Bilateral early LUNG [...] None Comment: W/ UNTIL HIS ADMITTANCE TO [facility] Other Topics Concern Not on file Social [...] tablet 0 ergocalciferol (Vitamin D-2) 1.25 MG (12676 UT) capsule Take 1 capsule (1.25 mg) [...] (150 mcg) by m (more content not included)...[facility] [id number] History and physical note* Gabrielle Finch MD [...] 12/07/2022 Performed by Avery Marshall DO at [facility] ENDOSCOPY EYE SURGERY Bilateral early 90's [...] None Comment: W/ UNTIL HIS ADMITTANCE TO [facility] Other Topics Concern Not on file Social [...] tablet 0 ergocalciferol (Vitamin D-2) 1.25 MG (20503 UT) capsule Take 1 capsule (1.25 mg) [...] Information Primary Emergency Contact: Angel Roger Address: [address] Mobile Relation: Child Code status: Prior [...] patient's PCP. Thank you. documented in this [facility]09-12-2023 Emergency department Note* Tasneem Whaley MD - 02/28/2023 11:28 AM EDT [facility] 1E MED SURG EMERGENCY DEPARTMENT ENCOUNTER [...] 12/07/2022 Performed by Avery Marshall DO at [facility] ENDOSCOPY EYE SURGERY Bilateral early 90's [...] shoulder pain ergocalciferol (Vitamin D-2) 1.25 MG (98086 UT) capsule Take 1 capsule (1.25 mg) [...] None Comment: W/ UNTIL HIS ADMITTANCE TO [facility] Social Determinants of Health Financial Resource Strain: [...] min Stress: No Stress Concern Present (02/28/2023) [employer] - Occupational Stress Questionnaire [...] 0-12 Units ( SubCUTAneous Not Given 03/01/23 170) acetaminophen (Tylenol) tablet 650 mg (650 mg Oral Given 03/01/23 06) Or acetaminophen (Tylenol) suppository 650 mg ( [...] 19 Units (19 Units SubCUTAneous Given 03/01/23 184) Insulin Lispro (Humalog) injection 6 Units (6 [...] pelvis Problems Addressed: LING (acute kidney injury) (CMS/[facility]) ([facility]): complicated acute illness or injury Pyelonephritis: complicated [...] 03/02/23 002 Pyelonephritis LING (acute kidney injury) ([facility]) ([facility]) CONSULTS: IP CONSULT TO ENDOCRINOLOGY IP CONSULT TO GERIATRICS IP CONSULT TO [facility] TO CONSULT INSOMNIA PROCEDURES: Unless otherwise noted below, none Procedures FINAL IMPRESSION 1. LING (acute kidney injury) (CMS/HCC) ([facility]) 2. Pyelonephritis 3. Polypharmacy 4. Insomnia, unspecified type 5. Pressure ulcer of right buttock, stage 3 ([facility]) DISPOSITION/PLAN DISPOSITION Admit 02/28/2023 03:42:32 PM PATIENT REFERRED TO: [facility] Geriatrics [address] [facility] [address] DISCHARGE MEDICATIONS: Current Discharge Medication List @[facility]([id number]:LAST:1)@ (Please note: Portions of this note were completed with a voice recognition program. Efforts were made to edit the dictations but occasionally words and phrases are mis-transcribed.) Form [id number] aTsneem Whaley MD (electronically signed) Emergency Medicine Provider Tasneem Whaley MD 03/02/23 0025 * Farrah Londono RN - 02/28/2023 11:28 AM EDT Pt presents for admission per her PCP. Was sent to get kidneys evaluated per pt. Pt endorses lower back pain and burning and pain with urination. Was recently admitted. documented in this [facility]09-12-2023 Emergency department Triage note* Farrah Londono RN - 02/28/2023 11:28 AM EDT Pt presents for admission per her PCP. Was sent to get kidneys evaluated per pt. Pt endorses lower back pain and burning and pain with urination. Was recently admitted. [facility] HospitalQkrnta78-97-3095 Physician Emergency department Note* Tasneem Whaley MD - 02/28/2023 11:28 AM EDT [facility] 1E MED SURG EMERGENCY DEPARTMENT ENCOUNTER [...] 12/07/2022 Performed by Avery Marshall DO at [facility] ENDOSCOPY EYE SURGERY Bilateral early 90's [...] shoulder pain ergocalciferol (Vitamin D-2) 1.25 MG (55071 UT) capsule Take 1 capsule (1.25 mg) [...] None Comment: W/ UNTIL HIS ADMITTANCE TO [facility] Social Determinants of Health Financial Resource Strain: [...] min Stress: No Stress Concern Present (02/28/2023) [employer] - Occupational Stress Questionnaire [...] Problems Addressed: LING (acute kidney injury) (CMS/HCC) ([facility]): complicated acute illness or injury Pyelonephritis: complicated [...] 03/02/23 0025 Pyelonephritis LING (acute kidney injury) (CMS/HCC) ([facility]) CONSULTS: IP CONSULT TO ENDOCRINOLOGY IP CONSULT TO GERIATRICS IP CONSULT TO [facility] TO CONSULT INSOMNIA PROCEDURES: Unless otherwise noted below, none Procedures FINAL IMPRESSION 1. LING (acute kidney injury) (CMS/HCC) ([facility]) 2. Pyelonephritis 3. Polypharmacy 4. Insomnia, unspecified type 5. Pressure ulcer of right buttock, stage 3 ([facility]) DISPOSITION/PLAN DISPOSITION Admit 02/28/2023 03:42:32 PM PATIENT REFERRED TO: [facility] Geriatrics [address] [facility] [address] DISCHARGE MEDICATIONS: Current Discharge Medication List @[facility]([id number]:LAST:1)@ (Please note: Portions of this note were completed with a voice recognition program. Efforts were made to edit the dictations but occasionally words and phrases are mis-transcribed.) Form [id number] Tasneem Whaley MD (electronically signed) Emergency Medicine Provider Tasneem Whaley MD 03/02/[address] [facility] HospitalMttxlc81-21-6669 Telephone encounter Note* Telephone Encounter - ELSA Arriaza CNP - 02/28/2023 8:30 AM EDT Noted. Patient already notified. See previous TE if needed. [facility] HospitalVxfvhz17-29-2492 Miscellaneous Notes* Telephone Encounter - ELSA Arriaza CNP - 02/28/2023 8:30 AM EDT Noted. Patient already notified. See previous TE if needed. * Telephone Encounter - Imelda Mann RN - 02/28/2023 7:15 AM EDT S: Christine from [facility] [phone] spoke with [facility] nurse regarding critical lab results B: [...] results Protocols used: PCP Call - No [id number]-NRXAJ-[id number] documented in this encounterSFirelands Regional Medical Center South CampusQonkpj67-40-5923 Telephone encounter Note* Telephone Encounter - Imelda Mann RN - 02/28/2023 7:15 AM EDT S: Christine from [facility] [phone] spoke with [facility] nurse regarding critical lab results B: Glucose A: Blood was drawn yesterday. Glucose was 524, resulting this morning. Verified with repeat analysis. The lab work was ordered by Katia Granados CNP. R: Since office is open, called back line and spoke with Katia Schulz's nurse. Result given. No further instructions to the [facility] nurse. Reason for Disposition Lab or radiology calling with CRITICAL test results Protocols used: PCP Call - No [id number]-ZIHDZ-[id number] [facility] HospitalFfztxr49-07-8183 Evaluation + Plan note* Assessment & Plan Note - ELSA Arriaza CNP - 02/27/2023 5:18 PM EDTAssociated Problem(s): Diarrhea No fever or chills, abdomen soft. Unknown etiology. Will check CBC and CMP. Consider stool culture if symptoms continue [facility] HospitalGondkl67-65-4458 Miscellaneous Notes* Assessment & Plan Note - [...] infection we will treat documented in this [facility]09-11-2023 Evaluation + Plan note* Assessment & Plan Note - ELSA Arriaza CNP - 02/27/2023 5:17 PM EDTAssociated Problem(s): Chronic renal insufficiency, stage III (moderate) ([facility]) We will check CMP today [facility] HospitalMtgoep31-15-5812 Evaluation + Plan note* Assessment & Plan Note - ELSA Arriaza CNP - 02/27/2023 5:17 PM EDTAssociated Problem(s): Acute cystitis with hematuria UA positive nitrites and leuks moderate blood, will start antibiotic therapy sent for culture [facility] HospitalZeposz04-02-5968 Evaluation + Plan note* Assessment & Plan Note - ELSA Arriaza CNP - 02/27/2023 5:17 PM EDTAssociated Problem(s): Hypertension Controlled. Continue amlodipine 10 mg daily and lisinopril [address] [facility] HospitalVgzfjo35-53-7986 Evaluation + Plan note* Assessment & Plan Note - ELSA Arriaza CNP - 02/27/2023 5:16 PM EDTAssociated Problem(s): Hypothyroidism Will check TSH today due to recent fatigue [place] [id number] Evaluation + Plan note* Assessment & Plan Note - ELSA Arriaza CNP - 02/27/2023 5:15 PM EDTAssociated Problem(s): Wound of right buttock Patient has not followed up with wound center upon visualization today wound unchanged, advised to keep area as clean as possible with frequent changes of incontinence pads 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 Patient having difficulties with compliance. Continue insulin regimen. Possible increased glucose due to urinary tract infection we will treat [facility] HospitalZipsqg69-78-4942 History of Present illness Narrative* Magda Lomas [...] for as directed pending test results. SUBJECTIVE/OBJECTIVE: [facility] - Radha Sandoval (: 1945) is [...] her blood sugar today, noted In office jyniq-db-axst testing 494. Urination Increased frequency, dysuria intermittently. [...] out soon. Has Maximino (son) work in [employer]. He may be able to help her [...] Lopez MD ergocalciferol (Vitamin D-2) 1.25 MG (08558 UT) capsule Take 1 capsule (1.25 mg) [...] by mouth daily. 02/07/23 Yes Katia Bridenthal, [employer]EL[employer] - MODERN LANGUAGES PROFESSOR PARoxetine (Paxil) 20 MG tablet Take 1 tablet (20 mg) by mouth every morning. 12/08/22 Yes Katia Rosaline [employer] DEVELOPER - JORGE potassium chloride CR (K-Tab) 20 MEQ ER tablet Take 20 mEq by mouth daily. Do not crush, chew, or split. Yes Historical Provider, pramipexole (Mirapex) 0.125 MG tablet Take 2 tablets (0.25 mg) by mouth Nightly. 01/13/23 03/14/23 Yes Katia Gregenthal, [employer]ELOPER - MODERN LANGUAGES PROFESSOR rosuvastatin (Crestor) 10 MG tablet Take 1 tablet (10 mg) by mouth daily. 12/08/22 Yes Katia Gregenthal, [employer]ELOPER - MODERN LANGUAGES PROFESSOR hydrOXYzine HCl (Atarax) 25 MG tablet Take 1 tablet (25 mg) by mouth every 8 hours as needed for anxiety. 12/08/22 02/07/23 Katia Gregenthal, [employer]ELOPER - MODERN LANGUAGES PROFESSOR zolpidem (Ambien) 10 MG tablet Take 1 tablet (10 mg) by mouth Nightly as needed for sleep. Do not start before December 22, 2022. 12/22/22 02/07/23 Katia Ronnyal, [employer]EL[employer] - MODERN LANGUAGES PROFESSOR insulin aspart (NovoLOG FLEXPEN) 100 UNIT/ML pen [...] CNP 02/27/2023 5:19 PM documented in this [facility]09-11-2023 Evaluation note* Diagnosis Diabetes mellitus due [...] Diarrhea, unspecified type documented in this encounter [facility] HospitalPeytcb63-46-1150 Telephone encounter Note* Telephone Encounter - Nan Bush RN - 02/23/2023 12:49 PM EDT S: Patient spoke with [facility] nurse regarding High Blood Sugar number [...] Office backline called and spoke to Jackie Grandaos for second level triage. She advises is ok to wait till appointment tomorrow to be seen. Pt was then called back and advised. Patient understands care advice. No further needs at this time. Patient instructed to call back with new or worsening symptoms. Reason for Disposition Patient wants to be seen Protocols used: Diabetes - High Blood Qktck-SLICT-FC [facility] Fuazml94-95-8955 Miscellaneous Notes* Telephone Encounter - Nan Bush RN - 02/23/2023 12:49 PM EDT S: Patient spoke with [facility] nurse regarding High Blood Sugar number [...] seen Protocols used: Diabetes - High Blood Egspr-EBSHT-SF documented in this [facility]08-30-2023 Hospital Discharge instructions* Patient Instructions* Tejal Henry RN - 02/15/2023 12:45 PM EDT Return in [address] Magallanes If you have any questions or concerns, please call our wound center at [phone] or [phone]. Offloading Try to avoid pressure and sheering [...] to help improve healing. documented in this [facility]08-30-2023 [facility] Visit - New Patient Progress Note [...] 12/07/2022 Performed by Avery Marshall DO at [facility] ENDOSCOPY EYE SURGERY Bilateral early 90's [...] Rfl: 0 ergocalciferol (Vitamin D-2) 1.25 MG (43480 UT) capsule, Take 1 capsule (1.25 mg) [...] None Comment: W/ UNTIL HIS ADMITTANCE TO [facility] Other Topics Concern Not on file Social [...] Blood Pressure Father LATHA (more content not included)...[facility]08-22-2023 Evaluation + Plan note* Assessment & Plan Note - ELSA Arraiza CNP - 02/07/2023 12:51 PM EDTAssociated Problem(s): Chronic left shoulder pain Chronic. Refill mobic. [facility] HospitalVoxhey59-49-2951 Evaluation + Plan note* Assessment & Plan Note - ELSA Arriaza CNP - 02/07/2023 12:51 PM EDTAssociated Problem(s): Wound of right buttock Avoid pressure to area, avoid friction, keep area as dry as possible. Refer to wound clinic. [facility] HospitalXenqqk12-48-0340 Miscellaneous Notes* Assessment & Plan Note - ELSA Arriaza CNP - 02/07/2023 12:51 PM EDTAssociated Problem(s): Chronic left shoulder pain Chronic. Refill mobic. * Assessment & Plan Note - ELSA Arriaza CNP - 02/07/2023 12:51 PM EDTAssociated Problem(s): Wound of right buttock Avoid pressure to area, avoid friction, keep area as dry as possible. Refer to wound clinic. documented in this [facility]08-22-2023 History of Present illness Narrative* ELSA [...] Arriaza CNP ergocalciferol (Vitamin D-2) 1.25 MG (02457 UT) capsule Take 1 capsule (1.25 mg) [...] mcg) by mouth daily. 01/13/23 04/13/23 Katia Rosaline [employer]ELOPER - [employer]ERN [employer]ANGUAGES PROFESSOR lisinopril 40 MG tablet Take 1 tablet (40 mg) by mouth daily. 12/08/22 Katia Ronnyal, [employer] DEVELOPER - MODERN LANGUAGES PROFESSOR PARoxetine (Paxil) 20 MG tablet Take 1 tablet (20 mg) by mouth every morning. 12/08/22 Katia Rosaline [employer] DEVELOPER - MODERN LANGUAGES PROFESSOR pramipexole (Mirapex) 0.125 MG tablet Take 2 tablets (0.25 mg) by mouth Nightly. 01/13/23 03/14/23 Katia Rosaline, [employer]ELOPER - MODERN LANGUAGES PROFESSOR rosuvastatin (Crestor) 10 MG tablet Take 1 tablet (10 mg) by mouth daily. 12/08/22 Katia Rosaline, [employer] DEVELOPER - MODERN LANGUAGES PROFESSOR senna-docusate sodium (Senokot-S) 8.6-50 MG tablet Take 1 tablet by mouth daily. 12/13/22 02/11/23 Katia Rosaline, [employer] DEVELOPER - MODERN LANGUAGES PROFESSOR zolpidem (Ambien) 10 MG tablet Take 1 [...] of . PHARMACY VERIFIED WITH PATIENT-[facility] [place]. documented in this encounterSFirelands Regional Medical Center South CampusCzdgjq49-13-5885 Telephone encounter Note* Telephone Encounter - Betty Gonzalez MA - 01/25/2023 3:01 PM EDT Patient notified. [facility] HospitalJuhsvo07-76-0173 Miscellaneous Notes* Telephone Encounter - Betty Gonzalez [...] EDT S: The patient is calling the [facility] About muscle spasms B: She has [...] days Protocols used: Muscle Aches and Body Mmdy-DWZWW-XD documented in this encounterSFirelands Regional Medical Center South CampusBywsdj78-21-1705 Telephone encounter Note* Telephone Encounter - Shiv Lopez MD - 01/25/2023 2:39 PM EDT If the muscle spasms got worse with the muscle relaxer stop the muscle relaxer, I am not sure what else we can do especially if they have been going on for years. We could try quinine. [facility] HospitalLqhhga46-11-1811 Telephone encounter Note* Telephone Encounter - Colette Poole RN - 01/25/2023 1:23 PM EDT S: The patient is calling the [facility] About muscle spasms B: She has [...] days Protocols used: Muscle Aches and Body Vvhy-CBACS-KZ [facility] HospitalHpkxbf73-04-1885 Telephone encounter Note* Telephone Encounter - ELSA Arriaza CNP - 01/13/2023 11:12 AM EDT Reviewed chart. Refill appropriate. RX sent. [facility] HospitalRoberz77-05-9352 Miscellaneous Notes* Telephone Encounter - ELSA Arriaza [...] 12/08/22, vit D 07/18/2022 documented in this encounterSFirelands Regional Medical Center South CampusFfstyr16-49-7605 Telephone encounter Note* Telephone Encounter - Mya Foster MA - 01/13/2023 8:52 AM EDT Prescription Request: Last medication check: 10/25/2022 Last physical exam: 04/26/2022 Last completed appointment: 12/13/22 Next scheduled appointment: 01/25/2023 Last date of refill on this medication: Mirapex 12/13/22, baclofen and synthroid 12/08/22, vit D 07/18/2022 [facility] HospitalYcqroe50-51-2885 Telephone encounter Note* Telephone Encounter - ELSA Arriaza CNP - 12/08/2022 5:20 PM EDT Reviewed chart. Refill appropriate. RX sent. [facility] HospitalVgjdml42-52-8104 Miscellaneous Notes* Telephone Encounter - ELSA Arriaza [...] 90 day 1 refill documented in this encounterSFirelands Regional Medical Center South CampusBkkslu94-14-9303 Telephone encounter Note* Telephone Encounter - Syl Kumar MA - 12/08/2022 1:53 PM EDT Prescription Request: Last medication check: 10/25/22 Last physical exam: 04/26/22 Next scheduled appointment: 01/25/23 CSA on file (date): 02/02/22 Last urine drug screen: none Last date of refill on this medication Baclofen 10/04/22 30 tablets no refill Levothyroxine 10/04/22 30 day 1 refill Crestor 06/14/[address] [facility] HospitalXwarvc01-01-9840 Plan of care note* Care Plan - [...] integrity is maintained or improved Outcome: Completed [facility] HospitalQyvqhs95-19-0313 Miscellaneous Notes* Care Plan - Lambert Kaur [...] Please call the Main Endoscopy Dept at [phone] for questions. * Op Note - Avery Marshall DO - 12/07/2022 7:48 AM EDT [facility] [place] Patient Name: Radha Sandoval Procedure Date: 12/07/2022 7:48 AM Gender: Female Date of : 1945 Age: 77 Admit Type: Inpatient Note Status: Finalized Endoscopist: Avery Marshall DO, [id number] Procedure: Colonoscopy Indications: Hematochezia Findings: The perianal [...] immediate complications. Procedure Code(s): --- Professional --- 42773, Colonoscopy, flexible; with removal of tumor(s), polyp(s), or other lesion(s) by snare technique --- Technical --- 01438, Colonoscopy, flexible; with removal of tumor(s), polyp(s), [...] or abscess without bleeding CPT copyright 2021 [employer]. All rights reserved. The codes documented in this report are preliminary and upon acid conditioner review may be revised to meet current [...] Limits Permission given to speak with patient uniforms sales representative/caregiver as indicated: Yes Confirmation of Payer with patient/family: Yes Payer Name: [employer] [place]: No Confirmation of Primary Care Physician: Confirmed [...] Prescription Coverage: Yes Pharmacy Used: [facility] Medication Management: Independent Transportation/Shopping: Independent Transportation Mode: [...] TCC to assist and follow as needed. Larua Jackson RN documented in this [facility]06-21-2023 Hospital Discharge instructions* Discharge Instr - Activity* Gabrielle Finch MD - 12/07/2022 1:48 PM EDT As tolerated * Discharge Instr - Diet* Gabrielle Finch MD - 12/07/2022 1:49 PM EDT Carb control diet documented in this [facility]06-21-2023 Hospital course Narrative* Gabrielle Finch MD - 12/07/2022 1:30 PM EDT Seen and examined. Full note to follow documented in this [facility]06-21-2023 Note* Care Coordination - Laura Jackson [...] Stay (Days): 2 GMLOS: No GMLOS Documented [facility] HospitalHmjurv90-68-7547 Note* Care Coordination - Laura Jackson RN [...] Stay (Days): 2 GMLOS: No GMLOS Documented [facility] HospitalXtmace28-01-3572 Note* Perioperative Nursing Note - Ashley Dickens RN - 12/07/2022 9:57 AM EDT POST ENDOSCOPY PROCEDURE TRANSFER REPORT Physician: Dr. Marshall Procedure completed: colonoscopy Specimens obtained: Yes Medications administered: See MAR Findings: see MD report Complications: none Please call the Main Endoscopy Dept at [phone] for questions. [facility] HospitalStmete01-99-4518 Note* Perioperative Nursing Note - Ashley Dickens RN - 12/07/2022 9:57 AM EDT POST ENDOSCOPY PROCEDURE TRANSFER REPORT Physician: Dr. Marshall Procedure completed: colonoscopy Specimens obtained: Yes Medications administered: See MAR Findings: see MD report Complications: none Please call the Main Endoscopy Dept at [phone] for questions. [facility] HospitalMinsqd92-49-8551 History of Present illness Narrative* Edelmira Hanna - 12/07/2022 7:58 AM EDT Patient has been NPO/ CLRS x3 days without adequate nutrition. Patient referred to RD. * Lani Bolton RCP - 12/06/2022 5:38 PM EDT [facility] Respiratory Care Department Progress Note As [...] note were not included. Hospitalist Progress Note 12/06/[id number]: Please secure chat me for patient care issues. [phone]: Please secure chat [facility] night Hospitalist for any issues. Subjective: Admit Date: 12/05/2022 PCP: Shiv Lopez MD Room#: B1-148/B1-148 A Interval History: She is weak. Still with bleeding. Not dizzy. She denies chest pain, sob, abdominal pain, nausea, vomiting, diarrhea, constipation, fevers, or chills. Awaiting colonoscopy. D/w pt Adult diet Clear Liquid NPO diet NPO except: Sips of Water with Meds @[id number]@ 24HR INTAKE/OUTPUT: Intake/Output Summary (Last 24 hours) [...] Information Primary Emergency Contact: Angel Roger Address: [address] [place] Relation: Child GABRIELLE FINCH MD Division of Hospitalist Medicine [facility] PAGER: [employer] chat documented in this [facility]06-21-2023 Note* Op Note - Avery Marshall DO - 12/07/2022 7:48 AM EDT [facility] [place] Patient Name: Radha Sandoval Procedure Date: 12/07/2022 7:48 AM Gender: Female Date of : 1945 Age: 77 Admit Type: Inpatient Note Status: Finalized Endoscopist: Avery Marshall DO, [id number] Procedure: Colonoscopy Indications: Hematochezia Findings: The perianal [...] immediate complications. Procedure Code(s): --- Professional --- 59374, Colonoscopy, flexible; with removal of tumor(s), polyp(s), or other lesion(s) by snare technique --- Technical --- 43899, Colonoscopy, flexible; with removal of tumor(s), polyp(s), [...] or abscess without bleeding CPT copyright 2021 [employer]. All rights reserved. The codes documented in this report are preliminary and upon acid conditioner review may be revised to meet current compliance requirements. Attending Participation: I personally performed the entire procedure. Avery Marshall DO 12/07/2022 9:46:22 AM This report has been signed electronically. Number of Addenda: 0 Note Initiated On: 12/07/2022 7:48 AM [employer] Phone: 1([phone] 443-670106-21-2023 Note* Op Note - Avery Marshall DO - 12/07/2022 7:48 AM EDT [facility] Name: Radha Sandoval Procedure Date: 12/07/2022 7:48 AM Gender: Female Date of : 1945 Age: 77 Admit Type: Inpatient Note Status: Finalized Endoscopist: Avery Marshall DO, [id number] Procedure: Colonoscopy Indications: Hematochezia Findings: The perianal [...] immediate complications. Procedure Code(s): --- Professional --- 54656, Colonoscopy, flexible; with removal of tumor(s), polyp(s), or other lesion(s) by snare technique --- Technical --- 28372, Colonoscopy, flexible; with removal of tumor(s), polyp(s), [...] or abscess without bleeding CPT copyright 2021 [employer]. All rights reserved. The codes documented in this report are preliminary and upon acid conditioner review may be revised to meet current compliance requirements. Attending Participation: I personally performed the entire procedure. Avery Marshall DO 12/07/2022 9:46:22 AM This report has been signed electronically. Number of Addenda: 0 Note Initiated On: 12/07/2022 7:48 AM [employer] Phone: 1(546) 515-369706-20-2023 Note* Care Coordination - Laura Jackson RN - 12/06/2022 10:36 AM EDT Care Managment Initial Assessment Date: 12/06/2022 Patient Name: Radha Sandoval : 1945 Patient Information Source of Information: Patient Cognition/Language: WFL - Within Functional Limits Permission given to speak with patient uniforms sales representative/caregiver as indicated: Yes Confirmation of Payer with patient/family: Yes Payer Name: [employer] [place]: No Confirmation of Primary Care Physician: Confirmed [...] Prescription Coverage: Yes Pharmacy Used: [facility] Medication Management: Independent Transportation/Shopping: Independent Transportation Mode: [...] and follow as needed. Laura Jackson RN [facility] [id number] Note* Care Coordination - Laura Jackson RN - 12/06/2022 10:36 AM EDT Care Managment Initial Assessment Date: 12/06/2022 Patient Name: Radha Sandoval : 1945 Patient Information Source of Information: Patient Cognition/Language: WFL - Within Functional Limits Permission given to speak with patient uniforms sales representative/caregiver as indicated: Yes Confirmation of Payer with patient/family: Yes Payer Name: [employer] [place]: No Confirmation of Primary Care Physician: Confirmed [...] Prescription Coverage: Yes Pharmacy Used: [facility] Medication Management: Independent Transportation/Shopping: Independent Transportation Mode: [...] and follow as needed. Laura Jackson RN [facility]06-20-2023 Consult note* Malcolm Rodriguez MD - 12/06/2022 [...] Arriaza CNP ergocalciferol (Vitamin D-2) 1.25 MG (79691 UT) capsule Take 1 capsule (1.25 mg) [...] evening, andat bedtime. 03/10/22 12/06/22 Historical Provider, @ROSEED@ ALLERGIES: Allergies Allergen Reactions Codeine Itching Other [...] 12/05/2022 Patient Name: RADHA SANDOVAL : 1945 [facility]#: [id number] ExamDate/Time: 12/05/2022 15:39 Procedure: CT ABDOMEN PELVIS [...] the patient/guardian/responsible accompanying adult who is agreeable. [employer] Phone: [phone]) 348-544306-20-2023 Consult note* Malcolm Rodriguez MD - 12/06/2022 [...] APPENDECTOMY CHOLECYSTECTOMY COLONOSCOPY 06/19/2008 EYE SURGERY early 's LUNG REMOVAL, PARTIAL ROTATOR CUFF REPAIR TONSILLECTOMY [...] Arriaza CNP ergocalciferol (Vitamin D-2) 1.25 MG (16657 UT) capsule Take 1 capsule (1.25 mg) [...] (10 mg) by mouth daily. 06/14/22 Katia Granados, CURAM DEVELOPER - MODERN LANGUAGES PROFESSOR zolpidem (Ambien) 10 MG tablet Take 1 [...] 12/05/2022 Patient Name: RADHA SANDOVAL : 1945 ExamDate/Time: 12/05/2022 15:39 Procedure: CT ABDOMEN PELVIS [...] adult who is agreeable. documented in this [facility]06-19-2023 Emergency department Note* Abby Kahn RN - 12/05/2022 8:30 PM EDT Provided pt with water and nomi Kahn RN 12/05/222200 [facility]tcaon65-74-4222 Emergency department Note* Abby Kahn RN - 12/05/2022 8:30 PM EDT Provided pt with water and nomi Kahn RN 12/05/222200 * Abby Kahn RN [...] IV that was placed in R AC. [facility]S PULLER called to place a new IV Abby Kahn RN 12/05/22 1403 * ANASTASIA Molina - 12/05/2022 10:43 AM EDT [facility] ED eMERGENCY dEPARTMENT eNCOUnter Pt Name: [...] mouth daily. ERGOCALCIFEROL (VITAMIN D-2) 1.25 MG (72686 UT) CAPSULE Take 1 capsule (1.25 mg) [...] None Comment: W/ UNTIL HIS ADMITTANCE TO [facility] Social Determinants of Health Financial Resource Strain: [...] Abnormal Glucose 215 (*) Narrative: Performed by: [facility], [address] [place] [id number] CLIA ID: [id number] HEPATIC FUNCTION PANEL - Normal BILIRUBIN, TOTAL [...] MEDICATIONS: New Prescriptions No medications on file @[facility]([id number]:LAST:1)@ (Please note: Portions of this note were completed with a voice recognition program. Efforts were made to edit thedictations but occasionally words and phrases are mis-transcribed.) Form v2016.J.5-cn ANASTASIA MOLINA (electronically signed) Emergency Medicine Provider NAASTASIA Molina 12/05/22 1748 * Anusha Velarde MD - 12/05/2022 10:43 AM EDT Emergency Department Encounter [facility] ED Patient: Radha Sandoval : 1945 [...] see their documentation. MD Anusha Huerta MD 12/05/228 Anusha Velarde MD 12/05/221851 * Maday Borja RN - 12/05/2022 10:43 AM EDT Pt reports bright red blood with blood clots in her brief this AM, denies use of blood thinners or hx of GI bleed. documented in this encounterSFirelands Regional Medical Center [facility] CampusQpwyza24-16-8548 Nurse Note* Sis Archibald RN - 12/05/2022 8:[address] Durbin requesting 18g U/S IV placed d/t GIB. No suitable options for an 18g PIV to be placed at this time. Pt also refusing for Left arm to be used. Dr. Hammer notified. [facility] HospitalIvrpdy63-08-9875 Nurse Note* Sis Archibald RN - 12/05/2022 8:[address] Durbin requesting 18g U/S IV placed d/t GIB. No suitable options for an 18g PIV to be placed at this time. Pt also refusing for Left arm to be used. Dr. Hammer notified. documented in this [facility]06-19-2023 Emergency department Note* Abby Kahn RN - 12/05/2022 6:[address] Velarde notified pt has filled x 3 bedpan with bloody stools and clots Abby Kahn RN 12/05/[address] [facility] HospitalEhzmbi40-19-5529 Emergency department Note* Abby Kahn RN - 12/05/2022 5:10 PM EDT Ashley (ANASTASIA) made aware that pt has had 2 large bloody BM's at this point Abby Kahn RN 12/05/[address] [facility] HospitalMfezdz06-89-9874 History and physical note* Bertram Durbin MD [...] None Comment: W/ UNTIL HIS ADMITTANCE TO [facility] Other Topics Concern Not on file Social [...] tablet 0 ergocalciferol (Vitamin D-2) 1.25 MG (36824 UT) capsule Take 1 capsule (1.25 mg) [...] Information Primary Emergency Contact: Angel Roger Address: [address] [place] Relation: Child Code status: No [...] H&P to the patient's PCP. Thank you. [employer] Phone: [phone]) 578-339706-19-2023 History and physical note* Bertram Durbin MD [...] None Comment: W/ UNTIL HIS ADMITTANCE TO [facility] Other Topics Concern Not on file Social [...] tablet 0 ergocalciferol (Vitamin D-2) 1.25 MG (48148 UT) capsule Take 1 capsule (1.25 mg) [...] Information Primary Emergency Contact: Angel Roger Address: [address] [place] Relation: Child Code status: No [...] patient's PCP. Thank you. documented in this [facility]06-19-2023 Emergency department Note* Abby Kahn RN - 12/05/2022 4:58 PM EDT Pt had large bloody BM Abby Kahn RN 12/05/[address] [facility] HospitalRpmpqq33-90-8950 Emergency department Note* Abby Kahn RN - 12/05/2022 2:[address] stated they were unable to use US IV that was placed in R AC. [facility]S PULLER called to place a new IV Abby Kahn RN 12/05/[address] [facility] HospitalCqflpd27-49-3970 Emergency department Triage note* Maday Borja RN - 12/05/2022 10:43 AM EDT Pt reports bright red blood with blood clots in her brief this AM, denies use of blood thinners or hx of GI bleed. [facility] HospitalTwmlhc57-33-7882 Physician Emergency department Note* ANASTASIA Molina - 12/05/2022 10:43 AM EDT [facility] ED eMERGENCY dEPARTMENT eNCOUnter Pt Name: [...] mouth daily. ERGOCALCIFEROL (VITAMIN D-2) 1.25 MG (83841 UT) CAPSULE Take 1 capsule (1.25 mg) [...] Hypertension Father LATHA VIANCA Diabetes Brother CATRACHO COLEY SOCIAL HISTORY Social [...] None Comment: W/ UNTIL HIS ADMITTANCE TO [facility] Social Determinants of Health Financial Resource Strain: [...] Abnormal Glucose 215 (*) Narrative: Performed by: Johana Montero [facility], [address] [place] [id number] CLIA ID: [id number] HEPATIC FUNCTION PANEL - Normal BILIRUBIN, TOTAL [...] MEDICATIONS: New Prescriptions No medications on file @[facility]([id number]:LAST:1)@ (Please note: Portions of this note were completed with a voice recognition program. Efforts were made to edit thedictations but occasionally words and phrases are mis-transcribed.) Form v2016.J.5-cn ANASTASIA MOLINA (electronically signed) Emergency Medicine Provider ANASTASIA Molina 12/05/[address] [facility] HospitalCyxxlb46-27-5319 Physician Emergency department Note* Anusha Velarde MD - 12/05/2022 10:43 AM EDT Emergency Department Encounter [facility] ED Patient: Radha Sandoval : 1945 [...] MD 12/05/22 1638 Anusha Velarde MD 12/05/221851 [employer] Phone: [phone] Telephone encounter Note* Telephone Encounter - ELSA Arriaza CNP - 12/05/2022 9:44 AM EDT Noted. Agree with disposition. TwibingoRbuzph57-37-0392 Miscellaneous Notes* Telephone Encounter - ELSA Arriaza CNP - 12/05/2022 9:44 AM EDT Noted. Agree with disposition. * Telephone Encounter - Sruthi Burns RN - 12/05/2022 9:22 AM EDT S: Patient spoke with [facility] nurse regarding rectal bleeding. B: Onset of symptoms/concern: started today. A: Pt states she has severe rectal bleeding, started today, bleeding from rectum continuously, states passing clots, states large amount of bleeding. States she has mild dizziness/shakiness at this time. R: Advised to go to the ED now, advised to have someone drive her, states she will go to [facility]. No further needs at this time. Patient instructed to call back with new or worsening symptoms. Advised to call 911 if she worsens or feels like she might pass out. Patient verbalizes understanding. Reason for Disposition SEVERE rectal bleeding (large blood clots; constant or on and off bleeding) Protocols used: Rectal Lxqmptkv-TVMUO-NP documented in this encounterSFirelands Regional Medical Center South CampusUnxnhe85-61-7961 Telephone encounter Note* Telephone Encounter - Sruthi Burns RN - 12/05/2022 9:22 AM EDT S: Patient spoke with [facility] nurse regarding rectal bleeding. B: Onset of symptoms/concern: started today. A: Pt states she has severe rectal bleeding, started today, bleeding from rectum continuously, states passing clots, states large amount of bleeding. States she has mild dizziness/shakiness at this time. R: Advised to go to the ED now, advised to have someone drive her, states she will go to [place] [facility]. No further needs at this time. Patient instructed to call back with new or worsening symptoms. Advised to call 911 if she worsens or feels like she might pass out. Patient verbalizes understanding. Reason for Disposition SEVERE rectal bleeding (large blood clots; constant or on and off bleeding) Protocols used: Rectal Jadagapb-OFZMA-OU [facility] HospitalDottwm38-05-8283 Telephone encounter Note* Telephone Encounter - Mya Foster MA - 10/05/2022 3:55 PM EDT ----- Message from Katia Granados APRN - MODERN LANGUAGES PROFESSOR sent at 10/05/2022 3:52 PM EDT ----- Hemoglobin A1c 9- recommend increasing novolog dose by 2 units- (from 14 to 16), send glucose readings to office in 1 week. Notified, can you please update sig? Thanks! [facility] HospitalVwfqwq45-55-3527 Miscellaneous Notes* Telephone Encounter - Mya Foster MA - 10/05/2022 3:55 PM EDT ----- Message from Katia Granados APRN - MODERN LANGUAGES PROFESSOR sent at 10/05/2022 3:52 PM EDT ----- Hemoglobin A1c 9- recommend increasing novolog dose by 2 units- (from 14 to 16), send glucose readings to office in 1 week. Notified, can you please update sig? Thanks! documented in this encounterSFirelands Regional Medical Center South CampusTgtwqk28-50-3715 Telephone encounter Note* Telephone Encounter - Stefani [...] prior to picking up the medication: Yes [facility] HospitalRtyagu53-01-7852 Miscellaneous Notes* Telephone Encounter - Stefani Abraham [...] up the medication: Yes documented in this encounterSFirelands Regional Medical Center South CampusFuoelq03-90-3008 Telephone encounter Note* Telephone Encounter - Shiv Lopez MD - 07/26/2022 8:29 AM EST Rx sent [facility] HospitalWetuuf20-03-0341 Miscellaneous Notes* Telephone Encounter - Shiv Lopez [...] (see medication tab): 05/03/2022 documented in this [facility]02-07-2023 Note* Addendum Note - Mya Foster MA - 07/26/2022 7:57 AM ESTAddended by: MYA FOSTER on: 07/26/2022 07:57 AM Modules accepted: Orders [facility] HospitalKcnxoz02-14-8983 Note* Addendum Note - Mya Foster MA - 07/26/2022 7:57 AM ESTAddended by: MYA FOSTER on: 07/26/2022 07:57 AM Modules accepted: Orders [place] [id number] Telephone encounter Note* Telephone Encounter - September [...] of last refill (see medication tab): 05/03/2022 [facility] HospitalBezmgc16-79-9899 Telephone encounter Note* Telephone Encounter - ELSA Arriaza CNP - 07/18/2022 9:56 AM EST Reviewed chart. Refill appropriate. RX sent. [facility] HospitalCnqskj95-30-2239 Miscellaneous Notes* Telephone Encounter - ELSA Arriaza CNP - 07/18/2022 9:56 AM EST Reviewed chart. Refill appropriate. RX sent. * Telephone Encounter - Magda Lomas - 07/18/2022 9:39 AM EST Prescription Request: Last medication check: 06/30/22 Last physical exam: 04/26/22 Next scheduled appointment: 09/30/22 Last date of refill on this medication 06/14/22 documented in this [facility]01-30-2023 Telephone encounter Note* Telephone Encounter - Magda Lomas - 07/18/2022 9:39 AM EST Prescription Request: Last medication check: 06/30/22 Last physical exam: 04/26/22 Next scheduled appointment: 09/30/22 Last date of refill on this medication 06/14/22 [address]07-78-8556 Telephone encounter Note* Telephone Encounter - Ashley Haider MA - 07/13/2022 1:06 PM EST Attempted to call patient to help her schedule an appt - the patient has a recording that says she is not accepting calls [facility] HospitalGkowlu77-59-3191 Miscellaneous Notes* Telephone Encounter - Ashley Haider [...] her 07/08 appt. Please advise. [place] Name: [facility] [place]opedics Medication Refills need, if any: N/A Medication Name: N/A documented in this encounterSFirelands Regional Medical Center South CampusZtlmfe07-93-2206 Telephone encounter Note* Telephone Encounter - Devendra Loera MD - 07/13/2022 11:10 AM EST Okay to reschedule [facility] [employer] Phone: [phone] Telephone encounter Note* Telephone Encounter - ELSA Arriaza CNP - 07/11/2022 2:11 PM EST Reviewed chart. Refill appropriate. RX sent. [facility] HospitalWbcbrc45-73-2875 Miscellaneous Notes* Telephone Encounter - ELSA Arriaza CNP - 07/11/2022 2:11 PM EST Reviewed chart. Refill appropriate. RX sent. * Telephone Encounter - Mya Foster MA - 07/11/2022 2:02 PM EST Prescription Request: Last medication check: 08/05/21 Last physical exam: 04/26/22 Next scheduled appointment: 09/29/2022 Last date of refill on this medication 02/28/2022 documented in this encounterSFirelands Regional Medical Center South CampusYlgrga51-93-3837 Telephone encounter Note* Telephone Encounter - Mya Foster MA - 07/11/2022 2:02 PM EST Prescription Request: Last medication check: 08/05/21 Last physical exam: 04/26/22 Next scheduled appointment: 09/29/2022 Last date of refill on this medication 02/28/2022 [address]34-46-8039 Telephone encounter Note* Telephone Encounter - Mya Foster MA - 07/11/2022 9:46 AM EST [address]ified. [address]av81-56-5391 Miscellaneous Notes* Telephone Encounter - Mya Foster [...] to answer question Protocols used: Falls and Btsmska-SYIRB-LB documented in this encounterSFirelands Regional Medical Center South CampusEhexac77-24-1252 Telephone encounter Note* Telephone Encounter - Shiv Lopez MD - 07/08/2022 12:30 PM EST Rx sent for tramadol, she can take this with Tylenol, this is a one-time prescription and cannot berefilled because we are not chronic pain management physicians. [facility] HospitalToiqgv77-50-9981 Miscellaneous Notes* Telephone Encounter - Shiv Lopez [...] to answer question Protocols used: Falls and Adrfajj-HOJCN-EM documented in this [facility]01-20-2023 Telephone encounter Note* Telephone Encounter - [...] to answer question Protocols used: Falls and Bcfmonx-ZUVVE-MG [facility]01-19-2023 Telephone encounter Note* Telephone Encounter - Katie Bernardo - 07/07/2022 5:48 PM EST Name of Caller: Radha Contact Reason for Appointment: Pt states that she would like to r/s her 07/08 appt. Please advise. Office Name: [facility] Physician Orthopedics Medication Refills need, if any: N/A Medication Name: N/A [facility]01-12-2023 Evaluation + Plan note* Assessment & Plan Note - Shiv Lopez MD - 06/30/2022 12:54 PM ESTAssociated Problem(s): Hyperlipidemia with target LDL less than 70 Controlled, continue rosuvastatin 10 mg daily [facility]01-12-2023 Evaluation + Plan note* Assessment & Plan Note - Shiv Lopez MD - 06/30/2022 12:54 PM ESTAssociated Problem(s): Moderate episode of recurrent major depressive disorder (HCC) Stable, continue Paxil 20 mg daily [place] [address]-12-2023 Evaluation + Plan note* Assessment & Plan Note - Shiv Lopez MD - 06/30/2022 12:54 PM ESTAssociated Problem(s): Chronic right-sided low back pain with right-sided sciatica Referral to orthopedic surgeon [facility] HospitalJoyxwp48-89-7651 Evaluation + Plan note* Assessment & Plan Note - Shiv Lopez MD - 06/30/2022 12:54 PM ESTAssociated Problem(s): Hypothyroidism Controlled, continue levothyroxine 150 mcg daily [facility] Mhfhmh49-47-7903 Miscellaneous Notes* Assessment & Plan Note - [...] current dose of Ambien documented in this [facility]01-12-2023 Evaluation + Plan note* Assessment & Plan Note - Shiv Lopez MD - 06/30/2022 12:53 PM EST Associated Problem(s): Vitamin D deficiency Stable, continue vitamin D 50,[address] [facility] HospitalFzbodq35-94-4732 Evaluation + Plan note* Assessment & Plan Note - Shiv Lopez MD - 06/30/2022 12:53 PM ESTAssociated Problem(s): Uncontrolled type 2 diabetes mellitus with hyperglycemia (HCC) Uncontrolled, continue NovoLog 14 units before each meal. 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 [facility] HospitalKrlwkd60-22-5746 Evaluation + Plan note* Assessment & Plan Note - Shiv Lopez MD - 06/30/2022 12:52 PM ESTAssociated Problem(s): DDD (degenerative disc disease), lumbar This is a chronic issue we will send her to spine surgery for further evaluation. [facility] HospitalIrzspb50-09-9872 Evaluation + Plan note* Assessment & Plan Note - Shiv Lopez MD - 06/30/2022 12:51 PM ESTAssociated Problem(s): Hypertension Blood pressure was initially elevated, recheck was normal, continue lisinopril 40 mg daily and amlodipine [address] [facility] HospitalKvsrsr44-38-7352 Evaluation + Plan note* Assessment & Plan Note - Shiv Lopez MD - 06/30/2022 12:51 PM ESTAssociated Problem(s): Restless legs syndrome (RLS) Stable on current dose of Mirapex [address] [facility] HospitalXsdtsd30-09-0265 Evaluation + Plan note* Assessment & Plan Note - Shiv Lopez MD - 06/30/2022 12:51 PM ESTAssociated Problem(s): Insomnia Stable on current dose of Ambien [facility] HospitalZvelut66-64-0221 History of Present illness Narrative* Syl Kumar MA - 06/30/2022 8:15 AM EST Patient verified by last name and date of . Patient wants a decontamination worker in the room during during the visit. no Professor Of Early Childhood Education na * Shiv Lopez MD - 06/30/2022 [...] spine surgery for further evaluation. Orders: - [facility] Orthopedics Spine - [place] Cecelia/Col[place] 11. Chronic right-sided low back pain with right-sided sciatica Assessment & Plan: Referral to orthopedic surgeon Orders: - [facility] [place]opedics Spine - [place] Cecelia/[place] Follow up in about 3 months (around 09/28/2022). SUBJECTIVE/OBJECTIVE: LEONILA -Radha comes in today for 3-month follow-up [...] MD 06/30/2022 12:55 PM documented in this [facility]* Diagnosis Localized edema Edema documented [...] of gastrointestinal tract documented in this encounter [facility]Evaluation note* Diagnosis Hyperlipidemia with target LDL less than 70 Other and unspecified hyperlipidemia Acquired hypothyroidism Unspecified hypothyroidism Chronic left shoulder pain Pain in joint, shoulder region documented in this encounter [facility]* Diagnosis Vitamin D deficiency Acquired hypothyroidism Unspecified hypothyroidism Chronic left shoulder pain Pain in joint, shoulder region Restless legs syndrome (RLS) documented in this encounter [facility]* Diagnosis Wound of right buttock, subsequent encounter- Primary Chronic left shoulder pain Pain in joint, shoulder region documented in this encounter [facility]* Diagnosis LING (acute kidney injury) ([facility]) ([facility])- Primary Pyelonephritis Unspecified pyelonephritis LING (acute kidney injury) ([facility]) ([facility]) Polypharmacy Issue of repeat prescriptions Insomnia, unspecified type Pressure ulcer of right buttock, stage 3 ([facility]) Declining functional status Weakness Other malaise and fatigue Insomnia Insomnia, unspecified Anxiety Anxiety state, unspecified Polypharmacy Issue of repeat prescriptions DNR (do not resuscitate) Other specified conditions influencing health status Complicated UTI (urinary tract infection) documented in this encounter [facility]* Diagnosis Onset Date Resolution Status Acquired lymphedema acute Debility acute Depression acute Diabetes mellitus acute Edema acute Hypothyroidism acute Insomnia acute Pain in left toe(s) acute Pain in right toe(s) acute Restless leg syndrome acute Rheumatoid arthritis acute Tinea unguium acute Type 2 diabetes mellitus with diabetic polyneuropathy acute Urinary tract infection acut e Hypertension chronic [facility] Work Phone: Evaluation note* Diagnosis Onset Date Resolution Status Acquired lymphedema acute Debility acute Depression acute Diabetes mellitus acute Edema acute Hypothyroidism acute Insomnia acute Restless leg syndrome acute Rheumatoid arthritis acute Type 2 diabetes mellitus with diabetic polyneuropathy acute Hypertension chronic Pain in left toe(s) resolved Pain in right toe(s) resolve d Tinea unguium resolved Urinary tract infection reso lved [facility] Work Phone: Evaluation noteNo assessment information available [facility] Work Phone: Evaluation note* Diagnosis Uncontrolled type [...] with right-sided sciatica [facility]* Diagnosis Trauma- Primary Injury, other and unspecified, unspecified site documented [facility]* Diagnosis Trauma- Primary Injury, other and unspecified, unspecified site documented [facility]* Diagnosis Vitamin D deficiency [facility] Discharge instructions Additional Instructions Discharge to [facility] 03/18/2023, intermediate, Part B therapies.[facility] Work Phone: Instructions* Attachments The following attachments cannot be sent through Care Everywhere. * Acute Cystitis Discharge Instructions ([place]e) [facility] Consultation (Urgent) - Pending Review Specialty Diagnoses / Procedures Referred By Varun irizarry Referred To Contact Wound Care Diagnoses Wound of right buttock, subsequent encounter Procedures OK OFFICE/OUTPATIENT [facility] 60-74 MINUTES Katia Granados APRN - CNP [address] [place] [address] [facility] [address] [place] [address] Referral ID Status Reason Start Date Expiration Date Visits Requested Visits Authorized [id number] Pending Review Specialty Services Required 02/07/2023 02/07/2024 1 1 [facility] Consultation (Routine) - Pending Review Specialty Diagnoses / Procedures Referred By Contac t Referred To Contact Orthopedic Surgery: Spine Surgery / Orthopedic Surgery Diagnoses DDD (degenerative disc disease), lumbar Chronic right-sided low back pain with right-sided sciatica Procedures OK OFFICE/OUTPATIENT [facility] MDM 60-74 MINUTES Shiv Lopez MD [address], [place] [address] [facility] [address] [place] [address] Referral ID Status Reason Start Date Expiration Date Visits Requested Visits Authorized [id number] Pending Review Specialty Services Required 06/30/2022 12/27/2022 1 1 [facility] for referral (narrative)No reason for referral information [facility] Work Phone: Summary Purpose Family History No Family History Records Found Relationship Condition Age at Onset Recorded Date/T amelia Not Specified Cardiac disease Unknown Malignant neoplasm Unknown Advance Directives No Advanced Directives Records FoundDocuments on File Type Date Recorded 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 Expl anation ACP-Advance Directive ACP-Power of Scrap Crane Operator Latest Code Status on File Code Status Date Activated Date Inactivated Comments Full Code 01/20/2019 3:56 AM 01/23/2019 7:06 PM Full Code 01/20/2019 3:56 AM 01/20/2019 3:56 AM Documents on File Type Date Recorded 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 * Lacerations: Stitches (Senegalese) * Head Injury: Closed: General Info (Senegalese) * Cervical Strain (Seneg[place]e) documented in this encounter Assessments Diagnosis Injury of head, initial encounter- Primary Laceration of scalp, initial encounter Strain of neck muscle, initial encounter Reason for Referral Status Reason Specialty Diagnoses / Procedures Referre d By Contact Referred To Contact Closed Cardiology Diagnoses Localized edema Procedures ECHO Complete 2D W Doppler W Color Shiv Lopez MD [address] [place] [address], [place] [address] Specialty Diagnoses / Procedures Referred By Varun irizarry Referred To Contact Gabrielle Finch MD [address] [place] [address] Referral ID Status Reason Start Date Expiration Date Visits Re quested Visits Authorized [id number] Closed 1 1 Referral ID Status Reason Start Date Expiration Date Visits Re quested Visits Authorized [id number] Closed 1 1 Referral ID Status Reason Start Date Expiration Date Visits Re quested Visits Authorized [id number] Closed 1 1 Specialty Diagnoses / Procedures Referred By Contac t Referred To Contact Wound Care Diagnoses Pressure ulcer of right buttock, stage 3 (HCC) Procedures OK OFFICE/OUTPATIENT [facility] MDM 60-74 MINUTES Rosalinda Burrows, CUR[employer] DEVELOPER - MODERN LANGUAGES PROFESSOR [address] [place] [address] Referral ID Status Reason Start Date Expiration Date Visits Requested Visits Authorized [id number] Pending Review Specialty Services Required 03/01/2023 02/29/2024 1 1 Specialty Diagnoses / Procedures Referred By Contac t Referred To Contact Geriatric Medicine Diagnoses Polypharmacy Insomnia, unspecified type Procedures OK OFFICE/OUTPATIENT [facility] MDM 60-74 MINUTES Adam Holt MD [address] [facility] [address] [facility] [address] [place] [address] Referral ID Status Reason Start Date Expiration Date Visits Requested Visits Authorized [id number] Pending Review Specialty Services Required 03/01/2023 02/29/2024 1 1 Chief Complaint and Reason for Visit Chief Complaint UTI/PRESSURE WOUND Reason for Visit Acquired lymphedema Debility Depression Diabetes mellitus Edema Hypothyroidism Insomnia Pain in left toe(s) Pain in right toe(s) Restless leg syndrome Rheumatoid arthritis Tinea unguium Type 2 diabetes mellitus with diabetic polyneuropathy Urinary tract infection Hypertension Chief Complaint UTI/PRESSURE WOUND [facility] Reason for Visit Acquired lymphedema Debility Depression Diabetes mellitus Edema Hypothyroidism Insomnia Restless leg syndrome Rheumatoid arthritis Type 2 diabetes mellitus with diabetic polyneuropathy Hypertension Pain in left toe(s) Pain in right toe(s) Tinea unguium Urinary tract infection Chief Complaint UTI/PRESSURE WOUND [facility] Reason for Visit Acquired lymphedema Debility Depression Diabetes mellitus Edema Hypothyroidism Insomnia Restless leg syndrome Rheumatoid arthritis Type 2 diabetes mellitus with diabetic polyneuropathy Hypertension Pain in left toe(s) Pain in right toe(s) Tinea unguium Urinary tract infection Chief Complaint UTI/PRESSURE WOUND [facility] WORK [facility] WORK [facility] WORK Reason for Visit Acquired lymphedema Debility Depression Diabetes mellitus Edema Hypothyroidism Insomnia Restless leg syndrome Rheumatoid arthritis Type 2 diabetes mellitus with diabetic polyneuropathy Hypertension Pain in left toe(s) Pain in right toe(s) Tinea unguium Urinary tract infection Chief Complaint UTI/PRESSURE WOUND [facility] WORK [facility] WORK [facility]WORK [facility] WORK LABWORK Reason for Visit Acquired lymphedema Debility Depression Diabetes mellitus Edema Hypothyroidism Insomnia Restless leg syndrome Rheumatoid arthritis Type 2 diabetes mellitus with diabetic polyneuropathy Hypertension Pain in left toe(s) Pain in right toe(s) Tinea unguium Urinary tract infection Chief Complaint UTI/PRESSURE WOUND [facility] WORK [facility]WORK [facility] WORK [facility] WORK LABWORK Reason for Visit Acquired lymphedema Debility Depression Diabetes mellitus Edema Hypothyroidism Insomnia Restless leg syndrome Rheumatoid arthritis Type 2 diabetes mellitus with diabetic polyneuropathy Hypertension Pain in left toe(s) Pain in right toe(s) Tinea unguium Urinary tract infection Chief Complaint [facility]WORK [facility] WORK [facility] WORK LABWORK [facility] WORK [facility] WORK LABWORK [facility] WORK LABWORK Chief Complaint [facility] WOR K [facility] WORK LABWORK [facility] WORK [facility] WORK LABWORK [facility] WORK LABWORK LABWORK Chief Complaint FDC LAB WOR K LABWORK [facility] WORK [facility] WORK LABWORK [facility] WORK LABWORK LABWORK LABWORK Chief Complaint [facility] LAB WOR K LABWORK [facility] WORK [facility] LAB WORK LABWORK [facility] LAB WORK LABWORK LABWORK LABWORK LABWORK Chief Complaint Admit Date [facility] WORK May 29 5:00am [facility] June 13 6:35am [facility] June 27, 2024 5:00am [facility] July 11, 2024 5:00am LABWORK July 25, 2024 5 :00am B/L SHOULDER PAIN/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 o July 31, 2024 4:58pm LABWORK August 06, 2024 4:00pm LABWORK August 08, 2024 8:05am [facility] August 22, 2024 7: 10am Chief Complaint Admit Date [facility] WORK May 29 5:00am [facility] WORK June 13 6:35am [facility] WORK June 27, 2024 5:00am [facility] WORK July 11, 2024 5:00am LABWORK July 25, 2024 5 :00am B/L SHOULDER PAIN/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 o July 31, 2024 4:58pm LABWORK August 06, 2024 4:00pm LABWORK August 08, 2024 8:05am [facility] WORK August 22, 2024 7: 10am [facility] WORK September 05, 2024 8 :00am Chief Complaint Admit Date [facility] WORK June 13 6:35am [facility] WORK June 27, 2024 5:00am [facility] WORK July 11, 2024 5:00am LABWORK July 25, 2024 5 :00am B/L SHOULDER PAIN/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 o July 31, 2024 4:58pm LABWORK August 06, 2024 4:00pm LABWORK August 08, 2024 8:05am [facility] WORK August 22, 2024 7: 10am [facility] WORK September 05, 2024 8 :00am [facility] WORK October 03, 2024 4 :00am Chief Complaint Admit Date [facility] WORK June 27, 2024 5:00am [facility] WORK July 11, 2024 5:00am LABWORK July 25, 2024 5 :00am B/L SHOULDER PAIN/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 o July 31, 2024 4:58pm LABWORK August 06, 2024 4:00pm LABWORK August 08, 2024 8:05am [facility] WORK August 22, 2024 7: 10am [facility] WORK September 05, 2024 8 :00am LABWORK September 19, 2024 5:00 am [facility] WORK September 23, 2024 8: 20am [facility] WORK October 03, 2024 4 :00am Chief Complaint Admit Date LABWORK August 06, 2024 4:00pm LABWORK August 08, 2024 8:05am [facility] WORK August 22, 2024 7: 10am [facility] WORK September 05, 2024 8 :00am LABWORK September 19, 2024 5:00 am [facility] WORK September 23, 2024 8: 20am [facility] WORK October 03, 2024 4 :00am LABWORK October 17, 2024 5:00am LABOWRK November 08, 2024 5:00a m Chief Complaint Admit Date LABWORK August 06, 2024 4:00pm LABWORK August 08, 2024 8:05am [facility] WORK August 22, 2024 7: 10am [facility] WORK September 05, 2024 8 :00am LABWORK September 19, 2024 5:00 am [facility] WORK September 23, 2024 8: 20am [facility] WORK October 03, 2024 4 :00am LABWORK October 17, 2024 5:00am LABOWRK November 08, 2024 5:00a m [facility] WORK November 14, 2024 6:5 0am [...] SHS DATE CREATED AUTHOR AUTHOR'S ORGANIZ ATION 03/07/2025 [facility] Reason for Visit (unrecogniz ed section and content) Reason Comments Fall Surgical team Reason Onset Date Comments Results 10/05/2022 Reason Comments Black or Bloody Stool Specialty Diagnoses / Procedures Referred By Contac t Referred To Contact Diagnoses Acute lower GI bleeding Procedures K92.2 Bertram Durbin MD [address] [facility] [address] [place] [address] [facility] [address] [place] [address] Referral ID Status Reason Start Date Expiration Date Visits Re quested Visits Authorized [id number] 1 1 Reason Onset Date Comments Med [...] (CMS/HCC) (HCC) Procedures .. 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 Start Date End Date Shiv Lopez MD [address] [place], [place] [address] [address] PCP - General 02/01/19 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 Start Date End Date Shiv Lopez MD [address] [place], [place] [address] [address] PCP - General 02/01/19 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 Start Date End Date Shiv Lopez MD [address] [facility] [place] [address] PCP - General 02/01/19 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 Start Date End Date Shiv Lopez MD [address] [facility] [place] [address] PCP - General 02/01/19 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 Start Date End Date Shiv Lopez MD [address] [facility] [place] [address] PCP - General 02/01/19 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 Start Date End Date Shiv Lopez MD [address] [facility] [place] [address] PCP - General 02/01/19 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 Start Date End Date Shiv Lopez MD [address] [facility] [place] [address] PCP - General 02/01/19 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 Start Date End Date Shiv Lopez MD [address] [facility] [place] [address] PCP - General 02/01/19 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 Start Date End Date Shiv Lopez MD [address] [facility] [place] [address] PCP - General 02/01/19 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 Start Date [place] [address] PCP - General 02/01/19 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 Start Date End Date Shiv Lopez MD [address] [place] [id number] PCP - General 02/01/19 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 Start Date End Date Shiv Lopez MD [address] [place] [id number] PCP - General 02/01/19 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 Start Date End Date Shiv Lopez MD [address] [place] [id number] PCP - General 02/01/19 Team Status: Active [...] THOMPSON MD Attending Provider, Referring Provider Active 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 Start Date End Date Shiv Lopez MD [address] [place] [id number] PCP - General 02/01/19 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 Start Date End Date Shiv Lopez MD [address] [place] [id number] PCP - General 02/01/19 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 Start Date End Date Shiv Lopez MD [address] [place] [id number] PCP - General 02/01/19 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 [employer] provides no warranty or guarantee of the accuracy or completeness of information in this document.
--- OUTSIDE RECORDS SUMMARY | 2025-03-10 03:44 | XMS RPT_ITS | CCD ---
Author Organization [facility] Care Team Providers Care Correction Officer Name Role Phone Shiv Lopez Unavailable Unavailable PROVIDER, UNKNOWN Unavailable Unavailable Shiv Lopez Unavailable Unavailable Shiv Lopez Primary Care Provider Shiv Lopez Primary Care Provider Shiv Lopez Primary Care Provider [phone] Shiv Lopez MD Primary Care Provider Shiv [...] TOWNSEND, Dr. Chaney Primary Care Provider [phone] Dr. Melissa Reed MD Attending Provider Unavaildiony Reed MD, Dr. Torres Primary Care Provider Doris Argueta MD, Dr. Betancur Attending Provider Dr. Gypsy Argueta MD Referring Provider Dr. Melissa Reed MD Referring Provider Unavaildiony Lopez MD, Dr. Chaney Primary Care Provider Brianna TOWNSEND, Dr. Torres Attending Provider Unavaildiony Lopez MD, Dr. Chaney Primary Care Provider [phone] Brianna TOWNSEND, Dr. Torres Attending Provider Unavaildiony [...] (2 sources) Codeine Drug Allergy 5 Itching [facility] (20 sources) Codeine Drug Allergy 5 Itching [place], [place] (20 sources) Oxycodone-Aspiri n Propensity to adverse reactions to drug 5 [place], [place] (20 sources) oxyCODONE Drug Allergy 1 Hives [facility] (20 sources) Vancomycin Drug Allergy 1 Rash [facility] (20 sources) Other Allergy to substance 3 [facility] (16 sources) Aspirin Drug Allergy 1 Other [facility] (2 sources) Aluminum aspirin Drug Allergy 1 [facility] (1 source) Aspirin Drug Allergy 1 [facility] Repository (1 source) oxyCODONE Drug Allergy 1 [facility] Rep[facility] (1 source) Vancomycin Drug Allergy 1 [facility] Medications Current Medications Medication Drug Class(es) [...] oral solution (1 source) alpha-Adrenergic Agonist, Uncompetitive N-kpmehk-X-aspartat e Receptor Antagonist, Sigma-1 Agonist Start: 09-10-2018 [...] every week ergocalciferol (Vitamin D-2) 1.25 MG (38545 UT) capsule Indications: Vitamin D deficiency Take 1 capsule (1.25 mg) by mouth 1 (one) time per week. 90 capsule 1 07/18/2022 Active Start: 06-10-2021 take 1 capsule by mo ut every week vitamin D (ERGOCALCIFEROL) 1.25 MG (59427 UT) CAPS capsule Take 1 capsule by mouth once a week 12 capsule 1 06/10/2021 Active Start: 12-23-2020 Ergocalciferol (Vitamin D2) (Vitamin D2) 1,250 mcg (50,000 unit) capsule Active 1250 ug PO EVERY WEEK December 23, 2020 12:00am Start: 01-16-2020 take 1 capsule by mo uth every week vitamin D (ERGOCALCIFEROL) 1.25 MG (96841 UT) CAPS capsule Take 1 capsule by mouth once a week 12 capsule 1 01/16/2020 Active Start: 10-01-2018 ergocalciferol (DRISDOL) 98008 units capsule 1 capsule every week 8 [...] Drug Class(es) Dates Sig (Normalized) Sig (Original) [id number] 200 actuat albuterol 0.09 mg/actuat metered dose [...] CLEANUP) Start: 06-04-2019 Continuous Blo od Gluc 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, [address] Calcium [Mass/Vol] 8.8 mg/dL Normal 7.6-11.0 [facility] Comment on above: Order Comment: 157 Performed By: #### L 501.5200, L500.2500 #### [facility] [address] [place], [address] Chloride [Moles/Vol] 101 mmol/L Normal 98-108 [facility] Comment on above: Order Comment: 157 Performed By: #### L 501.5200, L500.2500 #### [facility] [address] [place], [address] CO2 [Moles/Vol] 26.7 mmol/L Normal 21.0-32.0 [facility] Comment on above: Order Comment: 157 Performed By: #### L 501.5200, L500.2500 #### [facility] [address] [place], [address] Creatinine [Mass/Vol] 1.08 mg/dL Normal 0.70-1.20 [facility] Comment on above: Order Comment: 157 Performed By: #### L 501.5200, L500.2500 #### [facility] [address] [place], [address] GAP 11 Normal 5-15 [facility] Comment on above: Order Comment: 157 Performed By: #### L 501.5200, L500.2500 #### [facility] [address] [place], [address] GFR/1.73 sq M.predicted among non-blacks MDRD (S/P/Bld) [Vol rate/Area] 52 mL/min/{1.73_m2} Low >60 [facility] Comment on above: Order Comment: 157 Result Comment: mL/m in/1.73m2 CKD-EPI Creatinine Equation (2020) Performed By: #### L 501.5200, L500.2500 #### [facility] [address] [place], [address] Glucose [Mass/Vol] 173 mg/dL High 70-99 [facility] Comment on above: Order Comment: 157 Performed By: #### L 501.5200, L500.2500 #### [facility] [address] [place], [address] Potassium [Moles/Vol] 4.2 mmol/L Normal 3.3-5.1 [facility] Comment on above: Order Comment: 157 Performed By: #### L 501.5200, L500.2500 #### [facility] [address] [place], [address] Sodium [Moles/Vol] 139 mmol/L Normal 133-145 [facility] Comment on above: Order Comment: 157 Performed By: #### L 501.5200, L500.2500 #### [facility] [address] [place], [address] Urea nitrogen [Mass/Vol] 24 mg/dL High 4-19 [facility] Comment on above: Order Comment: 157 Performed By: #### L 501.5200, L500.2500 #### [facility] [address] [place], [address] Magnesiumon 03-06-2025 Magnesium [Mass/Vol] 2.3 mg/dL High 1.5-2.2 [facility] Comment on above: Order Comment: 157 Performed By: #### L 501.5200, L500.2500 #### [facility] [address] [place], [address] Basic Metabolic Profile (BMP )on 02-20-2025 BUN/CRE 22.1 RATIO High 10-20 [facility] Comment on above: Order Comment: 157 Performed By: #### L 501.5200, L500.2500 #### [facility] [address] [place], [address] Calcium [Mass/Vol] 9.0 mg/dL Normal 7.6-11.0 [facility] Comment on above: Order Comment: 157 Performed By: #### L 501.5200, L500.2500 #### [facility] [address] [place], [address] Chloride [Moles/Vol] 102 mmol/L Normal 98-108 [facility] Comment on above: Order Comment: 157 Performed By: #### L 501.5200, L500.2500 #### [facility] [address] [place], [address] CO2 [Moles/Vol] 27.8 mmol/L Normal 21.0-32.0 [facility] Comment on above: Order Comment: 157 Performed By: #### L 501.5200, L500.2500 #### [facility] [address] [place], [address] Creatinine [Mass/Vol] 1.16 mg/dL Normal 0.70-1.20 [facility] Comment on above: Order Comment: 157 Performed By: #### L 501.5200, L500.2500 #### [facility] [address] [place], [address] GAP 10 Normal 5-15 [facility] Comment on above: Order Comment: 157 Performed By: #### L 501.5200, L500.2500 #### [facility] [address] [place], [address] GFR/1.73 sq M.predicted among non-blacks MDRD (S/P/Bld) [Vol rate/Area] 47 mL/min/{1.73_m2} Low >60 [facility] Comment on above: Order Comment: 157 Result Comment: mL/m in/1.73m2 CKD-EPI Creatinine Equation (2020) Performed By: #### L 501.5200, L500.2500 #### [facility] [address] [place], [address] Glucose [Mass/Vol] 128 mg/dL High 70-99 [facility] Comment on above: Order Comment: 157 Performed By: #### L 501.5200, L500.2500 #### [facility] [address] [place], [address] Potassium [Moles/Vol] 4.4 mmol/L Normal 3.3-5.1 [facility] Comment on above: Order Comment: 157 Performed By: #### L 501.5200, L500.2500 #### [facility] [address] [place], [address] Sodium [Moles/Vol] 140 mmol/L Normal 133-145 [facility] Comment on above: Order Comment: 157 Performed By: #### L 501.5200, L500.2500 #### [facility] [address] [place], [address] Urea nitrogen [Mass/Vol] 26 mg/dL High 4-19 [facility] Comment on above: Order Comment: 157 Performed By: #### L 501.5200, L500.2500 #### [facility] [address] [place], [address] Magnesiumon 02-20-2025 Magnesium [Mass/Vol] 2.4 mg/dL High 1.5-2.2 [facility] Comment on above: Order Comment: 157 Performed By: #### L 501.5200, L500.2500 #### [facility] [address] [place], [address] Basic Metabolic Profile (BMP )on 02-06-2025 BUN/CRE 22.7 RATIO High 10-20 [facility] Comment on above: Order Comment: CLEAN CATCH Performed By: #### M 100.2200, L400.0001 #### [facility] [address] [place], [address] Calcium [Mass/Vol] 8.8 mg/dL Normal 7.6-11.0 [facility] Comment on above: Order Comment: CLEAN CATCH Performed By: #### M 100.2200, L400.0001 #### [facility] [address] [place], [address] Chloride [Moles/Vol] 102 mmol/L Normal 98-108 [facility] Comment on above: Order Comment: CLEAN CATCH Performed By: #### M 100.2200, L400.0001 #### [facility] [address] [place], [address] CO2 [Moles/Vol] 28.5 mmol/L Normal 21.0-32.0 [facility] Comment on above: Order Comment: CLEAN CATCH Performed By: #### M 100.2200, L400.0001 #### [facility] [address] [place], [address] Creatinine [Mass/Vol] 1.04 mg/dL Normal 0.70-1.20 [facility] Comment on above: Order Comment: CLEAN CATCH Performed By: #### M 100.2200, L400.0001 #### [facility] [address] [place], [address] GAP 9 Normal 5-15 [facility] Comment on above: Order Comment: CLEAN CATCH Performed By: #### M 100.2200, L400.0001 #### [facility] [address] [place], [address] GFR/1.73 sq M.predicted among non-blacks MDRD (S/P/Bld) [Vol rate/Area] 54 mL/min/{1.73_m2} Low >60 [facility] Comment on above: Order Comment: CLEAN CATCH Result Comment: mL/m in/1.73m2 CKD-EPI Creatinine Equation (2020) Performed By: #### M 100.0, L400.0001 #### [facility] [address] [place], [address] Glucose [Mass/Vol] 131 mg/dL High 70-99 [facility] Comment on above: Order Comment: CLEAN CATCH Performed By: #### M 100.2200, L400.0001 #### [facility] [address] [place], [address] Potassium [Moles/Vol] 4.1 mmol/L Normal 3.3-5.1 [facility] Comment on above: Order Comment: CLEAN CATCH Performed By: #### M 100.2200, L400.0001 #### [facility] [address] [place], [address] Sodium [Moles/Vol] 140 mmol/L Normal 133-145 [facility] Comment on above: Order Comment: CLEAN CATCH Performed By: #### M 100.2200, L400.0001 #### [facility] [address] [place], [address] Urea nitrogen [Mass/Vol] 24 mg/dL High 4-19 [facility] Comment on above: Order Comment: CLEAN CATCH Performed By: #### M 100.2200, L400.0001 #### [facility] [address] [place], [address] Magnesiumon 02-06-2025 Magnesium [Mass/Vol] 2.1 mg/dL Normal 1.5-2.2 [facility] Comment on above: Order Comment: CLEAN CATCH Performed By: #### M 100.2200, L400.0001 #### [facility] [address] [place], [address] Basic Metabolic Profile (BMP )on 01-23-2025 BUN/CRE 25.3 RATIO High 10-20 [facility] Comment on above: Order Comment: CLEAN CATCH Performed By: #### M 100.2200, L400.0001 #### [facility] [address] [place], [address] Calcium [Mass/Vol] 8.8 mg/dL Normal 7.6-11.0 [facility] Comment on above: Order Comment: CLEAN CATCH Performed By: #### M 100.2200, L400.0001 #### [facility] [address] [place], [address] Chloride [Moles/Vol] 102 mmol/L Normal 98-108 [facility] Comment on above: Order Comment: CLEAN CATCH Performed By: #### M 100.2200, L400.0001 #### [facility] [address] [place], [address] CO2 [Moles/Vol] 26.3 mmol/L Normal 21.0-32.0 [facility] Comment on above: Order Comment: CLEAN CATCH Performed By: #### M 100.2200, L400.0001 #### [facility] [address] [place], [address] Creatinine [Mass/Vol] 1.06 mg/dL Normal 0.70-1.20 [facility] Comment on above: Order Comment: CLEAN CATCH Performed By: #### M 100.2200, L400.0001 #### [facility] [address] [place], [address] GAP 10 Normal 5-15 [facility] Comment on above: Order Comment: CLEAN CATCH Performed By: #### M 100.2200, L400.0001 #### [facility] [address] [place], [address] GFR/1.73 sq M.predicted among non-blacks MDRD (S/P/Bld) [Vol rate/Area] 53 mL/min/{1.73_m2} Low >60 [facility] Comment on above: Order Comment: CLEAN CATCH Result Comment: mL/m in/1.73m2 CKD-EPI Creatinine Equation (2020) Performed By: #### M 100.0, L400.0001 #### [facility] [address] [place], [address] Glucose [Mass/Vol] 139 mg/dL High 70-99 [facility] Comment on above: Order Comment: CLEAN CATCH Performed By: #### M 100.0, L400.0001 #### [facility] [address] [place], [address] Potassium [Moles/Vol] 4.3 mmol/L Normal 3.3-5.1 [facility] Comment on above: Order Comment: CLEAN CATCH Result Comment: Hemo lysis present, Results??could be affected. ?? Performed By: #### M 100.2200, L400.0001 #### [facility] [address] [place], [address] Sodium [Moles/Vol] 138 mmol/L Normal 133-145 [facility] Comment on above: Order Comment: CLEAN CATCH Performed By: #### M 100.2200, L400.0001 #### [facility] [address] [place], [address] Urea nitrogen [Mass/Vol] 27 mg/dL High 4-19 [facility] Comment on above: Order Comment: CLEAN CATCH Performed By: #### M 100.2200, L400.0001 #### [facility] [address] [place], [address] Magnesiumon 01-23-2025 Magnesium [Mass/Vol] 2.2 mg/dL Normal 1.5-2.2 [facility] Comment on above: Order Comment: CLEAN CATCH Performed By: #### M 100.2200, L400.0001 #### [facility] [address] [place], [address] Basic Metabolic Profile (BMP )on 01-09-2025 BUN/CRE 22.0 RATIO High 10-20 [facility] Comment on above: Performed By: #### M 100.2200, L400.0001 #### [facility] [address] [place], [address] Calcium [Mass/Vol] 9.0 mg/dL Normal 7.6-11.0 [facility] Comment on above: Performed By: #### M 100.2200, L400.0001 #### [facility] [address] [place], [address] Chloride [Moles/Vol] 103 mmol/L Normal 98-108 [facility] Comment on above: Performed By: #### M 100.2200, L400.0001 #### [facility] [address] [place], [address] CO2 [Moles/Vol] 29.7 mmol/L Normal 21.0-32.0 [facility] Comment on above: Performed By: #### M 100.2200, L400.0001 #### [facility] [address] [place], [address] Creatinine [Mass/Vol] 1.08 mg/dL Normal 0.70-1.20 [facility] Comment on above: Performed By: #### M 100.2200, L400.0001 #### [facility] [address] [place], [address] GAP 8 Normal 5-15 [facility] Comment on above: Performed By: #### M 100.2200, L400.0001 #### [facility] [address] [place], [address] GFR/1.73 sq M.predicted among non-blacks MDRD (S/P/Bld) [Vol rate/Area] 52 mL/min/{1.73_m2} Low >60 [facility] Comment on above: Result Comment: mL/m in/1.73m2 CKD-EPI Creatinine Equation (2020) Performed By: #### M 100.2200, L400.0001 #### [facility] [address] [place], [address] Glucose [Mass/Vol] 78 mg/dL Normal 70-99 [facility] Comment on above: Performed By: #### M 100.2200, L400.0001 #### [facility] [address] [place], [address] Potassium [Moles/Vol] 4.5 mmol/L Normal 3.3-5.1 [facility] Comment on above: Result Comment: Hemo lysis present, Results??could be affected. ?? Performed By: #### M 100.2200, L400.0001 #### [facility] [address] [place], [address] Sodium [Moles/Vol] 141 mmol/L Normal 133-145 [facility] Comment on above: Performed By: #### M 100.2200, L400.0001 #### [facility] [address] [place], [address] Urea nitrogen [Mass/Vol] 24 mg/dL High 4- [facility] Comment on above: Performed By: #### M 100.2200, L400.0001 #### [facility] [address] [place], [address] Magnesiumon 01-09-2025 Magnesium [Mass/Vol] 2.1 mg/dL Normal 1.5-2.2 [facility] Comment on above: Performed By: #### M 100.2200, L400.0001 #### [facility] [address] [place], [address] Urine Cultureon 12-27-2024 [facility] Copy of report sent to Infection Control Printer [id number] 12/26/24 0739 FELICITAS. Urine Culture CALLED X2, RESULTS CALLED TO DIVYA AND LEFT VOICEMAIL MESSAGE WITH SCOTTY MUÑOZ 12/26/24 4189 Dora Platt. Escherichia coli Lawn Count 50,000-80,000 MARKER ESBL producing OrganismA MARKER [...] S Tobramycin Islt LAVINIA <=1 S Normal [facility] Comment on above: Performed By: #### L 501.5200, L500.2500 #### [facility] [address] [place], [place], [id number] Basic Metabolic Profile (BMP )on 12-26-2024 BUN/CRE 24.9 RATIO High 10-20 [facility] Comment on above: Order Comment: 157 Performed By: #### M 100.2200, L400.0001 #### [facility] [address] [place], [address] Calcium [Mass/Vol] 8.7 mg/dL Normal 7.6-11.0 [facility] Comment on above: Order Comment: 157 Performed By: #### M 100.2200, L400.0001 #### [facility] [address] [place], [address] Chloride [Moles/Vol] 103 mmol/L Normal 98-108 [facility] Comment on above: Order Comment: 157 Performed By: #### M 100.2200, L400.0001 #### [facility] [address] [place], [address] CO2 [Moles/Vol] 28.5 mmol/L Normal 21.0-32.0 [facility] Comment on above: Order Comment: 157 Performed By: #### M 100.2200, L400.0001 #### [facility] [address] [place], [address] Creatinine [Mass/Vol] 1.19 mg/dL Normal 0.70-1.20 [facility] Comment on above: Order Comment: 157 Performed By: #### M 100.2200, L400.0001 #### [facility] [address] [place], [address] GAP 9 Normal 5-15 [facility] Comment on above: Order Comment: 157 Performed By: #### M 100.2200, L400.0001 #### [facility] [address] [place], [address] GFR/1.73 sq M.predicted among non-blacks MDRD (S/P/Bld) [Vol rate/Area] 46 mL/min/{1.73_m2} Low >60 [facility] Comment on above: Order Comment: 157 Result Comment: mL/m in/1.73m2 CKD-EPI Creatinine Equation (2020) Performed By: #### M 100.2200, L400.0001 #### [facility] [address] [place], [address] Glucose [Mass/Vol] 162 mg/dL High 70-99 [facility] Comment on above: Order Comment: 157 Performed By: #### M 100.2200, L400.0001 #### [facility] [address] [place], [address] Potassium [Moles/Vol] 4.5 mmol/L Normal 3.3-5.1 [facility] Comment on above: Order Comment: 157 Performed By: #### M 100.2200, L400.0001 #### [facility] [address] [place], [address] Sodium [Moles/Vol] 141 mmol/L Normal 133-145 [facility] Comment on above: Order Comment: 157 Performed By: #### M 100.2200, L400.0001 #### [facility] [address] [place], [address] Urea nitrogen [Mass/Vol] 30 mg/dL High 4-19 [facility] Comment on above: Order Comment: 157 Performed By: #### M 100.2200, L400.0001 #### [facility] [address] [place], [address] Magnesiumon 12-26-2024 Magnesium [Mass/Vol] 2.2 mg/dL Normal 1.5-2.2 [facility] Comment on above: Order Comment: 157 Performed By: #### M 100.2200, L400.0001 #### [facility] [address] [place], [address] Urinalysis, Completeon 12-24 BACTERIA RARE Normal None Seen [facility] Comment on above: Order Comment: 157 Performed By: #### L 501.5200, L500.2500 #### [facility] [address] [place], [address] EPI,SQUAMOUS 0-5 SEEN Normal 5-10 [facility] Comment on above: Order Comment: 157 Performed By: #### L 501.5200, L500.2500 #### [facility] [address] [place], [address] Mucus Ql (Urine sed) 0 SEEN Normal [facility] Comment on above: Order Comment: 157 Performed By: #### L 501.5200, L500.2500 #### [facility] [address] [place], [address] RBC 0 SEEN Normal 0-5 [facility] Comment on above: Order Comment: 157 Performed By: #### L 501.5200, L500.2500 #### [facility] [address] [place], [address] WBC 0 SEEN Normal 0-5 [facility] Comment on above: Order Comment: 157 Performed By: #### L 501.5200, L500.2500 #### [facility] [address] [place], [address] Basic Metabolic Profile (BMP )on 12-12-2024 BUN/CRE 28.8 RATIO High 10-20 [facility] Comment on above: Performed By: #### M 100.2200, L400.0001 #### [facility] [address] [place], [address] Calcium [Mass/Vol] 8.7 mg/dL Normal 7.6-11.0 [facility] Comment on above: Performed By: #### M 100.2200, L400.0001 #### [facility] [address] [place], [address] Chloride [Moles/Vol] 101 mmol/L Normal 98-108 [facility] Comment on above: Performed By: #### M 100.2200, L400.0001 #### [facility] [address] [place], [address] CO2 [Moles/Vol] 27.9 mmol/L Normal 21.0-32.0 [facility] Comment on above: Performed By: #### M 100.2200, L400.0001 #### [facility] [address] [place], [address] Creatinine [Mass/Vol] 0.98 mg/dL Normal 0.70-1.20 [facility] Comment on above: Performed By: #### M 100.2200, L400.0001 #### [facility] [address] [place], [address] GAP 9 Normal 5-15 [facility] Comment on above: Performed By: #### M 100.2200, L400.0001 #### [facility] [address] [place], [address] GFR/1.73 sq M.predicted among non-blacks MDRD (S/P/Bld) [Vol rate/Area] 58 mL/min/{1.73_m2} Low >60 [facility] Comment on above: Result Comment: mL/m in/1.73m2 CKD-EPI Creatinine Equation (2020) Performed By: #### M 100.2200, L400.0001 #### [facility] [address] [place], [address] Glucose [Mass/Vol] 148 mg/dL High 70-99 [facility] Comment on above: Performed By: #### M 100.2200, L400.0001 #### [facility] [address] [place], [address] Potassium [Moles/Vol] 4.0 mmol/L Normal 3.3-5.1 [facility] Comment on above: Performed By: #### M 100.2200, L400.0001 #### [facility] [address] [place], [address] Sodium [Moles/Vol] 139 mmol/L Normal 133-145 [facility] Comment on above: Performed By: #### M 100.2200, L400.0001 #### [facility] [address] [place], [address] Urea nitrogen [Mass/Vol] 28 mg/dL High 4-19 [facility] Comment on above: Performed By: #### M 100.2200, L400.0001 #### [facility] [address] [place], [address] Magnesiumon 12-12-2024 Magnesium [Mass/Vol] 2.2 mg/dL Normal 1.5-2.2 [facility] Comment on above: Performed By: #### M 100.2200, L400.0001 #### [facility] [address] [place], [address] Anion gap in Serum or Plasma Ordered By: Melissa Reed on 11-28-2024 Anion gap [Moles/Vol] 11 mmol/L 5-15 [facility] BUN/creatinine ratioOrdered By: Melissa Reed on 11-28-2024 Urea nitrogen/Creatinine [Mass ratio] 28.8 mg/mg High - [facility] Basic Metabolic Profile (BMP )on 11-28-2024 BUN/CRE 28.8 RATIO High - [facility] Comment on above: Order Comment: 157 Performed By: #### L 500.2500, L501.5200 #### [facility] [address] [place], [address] Calcium [Mass/Vol] 9.5 mg/dL Normal 7.6-11.0 [facility] Comment on above: Order Comment: 157 Performed By: #### L 500.2500, L501.5200 #### [facility] [address] [place], [address] Chloride [Moles/Vol] 98 mmol/L Normal 98-108 [facility] Comment on above: Order Comment: 157 Performed By: #### L 500.2500, L501.5200 #### [facility] [address] [place], [address] CO2 [Moles/Vol] 29.5 mmol/L Normal 21.0-32.0 [facility] Comment on above: Order Comment: 157 Performed By: #### L 500.2500, L501.5200 #### [facility] [address] [place], [address] Creatinine [Mass/Vol] 1.21 mg/dL High 0.70-1.20 [facility] Comment on above: Order Comment: 157 Performed By: #### L 500.2500, L501.5200 #### [facility] [address] [place], [address] GAP 11 Normal 5-15 [facility] Comment on above: Order Comment: 157 Performed By: #### L 500.2500, L501.5200 #### [facility] [address] [place], [address] GFR/1.73 sq M.predicted among non-blacks MDRD (S/P/Bld) [Vol rate/Area] 45 mL/min/{1.73_m2} Low >60 [facility] Comment on above: Order Comment: 157 Result Comment: mL/m in/1.73m2 CKD-EPI Creatinine Equation (2020) Performed By: #### L 500.2500, L501.5200 #### [facility] [address] [place], [address] Glucose [Mass/Vol] 126 mg/dL High 70-99 [facility] Comment on above: Order Comment: 157 Performed By: #### L 500.2500, L501.5200 #### [facility] [address] [place], [address] Potassium [Moles/Vol] 4.2 mmol/L Normal 3.3-5.1 [facility] Comment on above: Order Comment: 157 Performed By: #### L 500.2500, L501.5200 #### [facility] [address] [place], [address] Sodium [Moles/Vol] 139 mmol/L Normal 133-145 [facility] Comment on above: Order Comment: 157 Performed By: #### L 500.2500, L501.5200 #### [facility] [address] [place], [address] Urea nitrogen [Mass/Vol] 35 mg/dL High 4-19 [facility] Comment on above: Order Comment: 157 Performed By: #### L 500.2500, L501.5200 #### [facility] [address] [place], [address] Carbon dioxide, total [Moles /volume] in Central venous bloodOrdered By: Melissa Reed on 11-28-2024 CO2 [Moles/Vol] 29.5 mmol/L 21.0-32.0 [facility] Chloride assayOrdered By: Sd Reed on 11-28-2024 Chloride [Moles/Vol] 98 mmol/L 98-108 [facility] Glomerular filtration rate ( GFR) estimation/1.73 sq m using serum, plasma, or whole bOrdered By: Melissa Reed on 11-28-2024 GFR/1.73 sq M.predicted among non-blacks MDRD (S/P/Bld) [Vol rate/Area] 45 mL/min/{1.73_m2} Low >60 [facility] Comment on above: mL/min/1.73m2 CKD-EP I Creatinine Equation (2020) Magnesiumon 11-28-2024 Magnesium [Mass/Vol] 2.4 mg/dL High 1.5-2.2 [facility] Comment on above: Order Comment: 157 Performed By: #### L 500.2500, L501.5200 #### [facility] [address] [place], [address] Magnesium measurement (mass/ volume)Ordered By: Melissa Reed on 11-28-2024 Magnesium (Unsp spec) [Mass/Vol] 2.4 mg/dL High 1.5-2.2 [facility] Potassium measurement (mass/ volume)Ordered By: Melissa Reed on 11-28-2024 Potassium (Unsp spec) [Mass/Vol] 4.2 mmol/L 3.3-5.1 [facility] Serum creatinine measurement (mass/volume)Ordered By: Melissa Reed on 11-28-2024 Creatinine [Mass/Vol] 1.21 mg/dL High 0.70-1.20 [facility] Serum glucose measurement (m ass/volume)Ordered By: Melissa Reed on 11-28-2024 Glucose [Mass/Vol] 126 mg/dL High 70-99 [facility] Serum or plasma calcium danae urement (mass/volume)Ordered By: Melissa Reed on 11-28-2024 Calcium [Mass/Vol] 9.5 mg/dL 7.6-11.0 [facility] Serum or plasma urea nitroge n measurement (mass/volume)Ordered By: Melissa Reed on 11-28-2024 Urea nitrogen [Mass/Vol] 35 mg/dL High 4-19 [facility] Sodium levelOrdered By: Rubin Reed on 11-28-2024 Sodium [Moles/Vol] 139 mmol/L 133-145 [facility] Anion gap in Serum or Plasma Ordered By: Melissa Reed on 11-14-2024 Anion gap [Moles/Vol] 9 mmol/L 5-15 [facility] BUN/creatinine ratioOrdered By: Melissa Reed on 11-14-2024 Urea nitrogen/Creatinine [Mass ratio] 21.3 mg/mg High - [facility] Basic Metabolic Profile (BMP )on 11-14-2024 BUN/CRE 21.3 RATIO High 04-07 [facility] Comment on above: Performed By: #### M 100.2200, L400.0001 #### [facility] [place], [address] Calcium [Mass/Vol] 8.6 mg/dL Normal 7.6-11.0 [facility] Comment on above: Performed By: #### M 100.2200, L400.0001 #### [facility] [address] [place], [address] Chloride [Moles/Vol] 101 mmol/L Normal 98-108 [facility] Comment on above: Performed By: #### M 100.2200, L400.0001 #### [facility] [address] [place], [address] CO2 [Moles/Vol] 29.7 mmol/L Normal 21.0-32.0 [facility] Comment on above: Performed By: #### M 100.2200, L400.0001 #### [facility] [address] [place], [address] Creatinine [Mass/Vol] 1.04 mg/dL Normal 0.70-1.20 [facility] Comment on above: Performed By: #### M 100.2200, L400.0001 #### [facility] [address] [place], [address] GAP 9 Normal 5-15 [facility] Comment on above: Performed By: #### M 100.2200, L400.0001 #### [facility] [address] [place], [address] GFR/1.73 sq M.predicted among non-blacks MDRD (S/P/Bld) [Vol rate/Area] 54 mL/min/{1.73_m2} Low >60 [facility] Comment on above: Result Comment: mL/m in/1.73m2 CKD-EPI Creatinine Equation (2020) Performed By: #### M 100.2200, L400.0001 #### [facility] [address] [place], [address] Glucose [Mass/Vol] 179 mg/dL High 70-99 [facility] Comment on above: Performed By: #### M 100.2200, L400.0001 #### [facility] [address] [place], [address] Potassium [Moles/Vol] 4.1 mmol/L Normal 3.3-5.1 [facility] Comment on above: Performed By: #### M 100.2200, L400.0001 #### [facility] [address] [place], [address] Sodium [Moles/Vol] 140 mmol/L Normal 133-145 [facility] Comment on above: Performed By: #### M 100.2200, L400.0001 #### [facility] [address] [place], [address] Urea nitrogen [Mass/Vol] 22 mg/dL High 4-19 [facility] Comment on above: Performed By: #### M 100.2200, L400.0001 #### [facility] [address] [place], [address] Carbon dioxide, total [Moles /volume] in Central venous bloodOrdered By: Melissa Reed on 11-14-2024 CO2 [Moles/Vol] 29.7 mmol/L 21.0-32.0 [facility] Chloride assayOrdered By: Sd Reed on 11-14-2024 Chloride [Moles/Vol] 101 mmol/L 98-108 [facility] Glomerular filtration rate ( GFR) estimation/1.73 sq m using serum, plasma, or whole bOrdered By: Melissa Reed on 11-14-2024 GFR/1.73 sq M.predicted among non-blacks MDRD (S/P/Bld) [Vol rate/Area] 54 mL/min/{1.73_m2} Low >60 [facility] Comment on above: mL/min/1.73m2 CKD-EP I Creatinine Equation (2020) Magnesiumon 11-14-2024 Magnesium [Mass/Vol] 2.1 mg/dL Normal 1.5-2.2 [facility] Comment on above: Performed By: #### M 100.2200, L400.0001 #### [facility] [place], [address] Magnesium measurement (mass/ volume)Ordered By: Melissa Reed on 11-14-2024 Magnesium (Unsp spec) [Mass/Vol] 2.1 mg/dL 1.5-2.2 [facility] Potassium measurement (mass/ volume)Ordered By: Melissa Rede on 11-14-2024 Potassium (Unsp spec) [Mass/Vol] 4.1 mmol/L 3.3-5.1 [facility] Serum creatinine measurement (mass/volume)Ordered By: Melissa Reed on 11-14-2024 Creatinine [Mass/Vol] 1.04 mg/dL 0.70-1.20 [facility] Serum glucose measurement (m ass/volume)Ordered By: Melissa Reed on 11-14-2024 Glucose [Mass/Vol] 179 mg/dL High 70-99 [facility] Serum or plasma calcium danae urement (mass/volume)Ordered By: Melissa Reed on 11-14-2024 Calcium [Mass/Vol] 8.6 mg/dL 7.6-11.0 [facility] Serum or plasma urea nitroge n measurement (mass/volume)Ordered By: Melissa Reed on 11-14-2024 Urea nitrogen [Mass/Vol] 22 mg/dL High 4-19 [facility] Sodium levelOrdered By: Rubin Reed on 11-14-2024 Sodium [Moles/Vol] 140 mmol/L 133-145 [facility] Anion gap in Serum or Plasma Ordered By: Melissa Reed on 11-08-2024 Anion gap [Moles/Vol] 10 mmol/L 5-15 [facility] BUN/creatinine ratioOrdered By: Melissa Reed on 11-08-2024 Urea nitrogen/Creatinine [Mass ratio] 24.4 mg/mg High 10-20 [facility] Basic Metabolic Profile (BMP )on 11-08-2024 BUN/CRE 24.4 RATIO High 10-20 [facility] Comment on above: Order Comment: 157 Performed By: #### L 500.2500, L501.5200 #### [facility] [address] [place], [address] Calcium [Mass/Vol] 8.8 mg/dL Normal 7.6-11.0 [facility] Comment on above: Order Comment: 157 Performed By: #### L 500.2500, L501.5200 #### [facility] [address] [place], [address] Chloride [Moles/Vol] 101 mmol/L Normal 98-108 [facility] Comment on above: Order Comment: 157 Performed By: #### L 500.2500, L501.5200 #### [facility] [address] [place], [address] CO2 [Moles/Vol] 28.3 mmol/L Normal 21.0-32.0 [facility] Comment on above: Order Comment: 157 Performed By: #### L 500.2500, L501.5200 #### [facility] [address] [place], [address] Creatinine [Mass/Vol] 1.08 mg/dL Normal 0.70-1.20 [facility] Comment on above: Order Comment: 157 Performed By: #### L 500.2500, L501.5200 #### [facility] [address] [place], [address] GAP 10 Normal 5-15 [facility] Comment on above: Order Comment: 157 Performed By: #### L 500.2500, L501.5200 #### [facility] [address] [place], [address] GFR/1.73 sq M.predicted among non-blacks MDRD (S/P/Bld) [Vol rate/Area] 52 mL/min/{1.73_m2} Low >60 [facility] Comment on above: Order Comment: 157 Result Comment: mL/m in/1.73m2 CKD-EPI Creatinine Equation (2020) Performed By: #### L 500.2500, L501.5200 #### [facility] [address] [place], [address] Glucose [Mass/Vol] 104 mg/dL High 70-99 [facility] Comment on above: Order Comment: 157 Performed By: #### L 500.2500, L501.5200 #### [facility] [address] [place], [address] Potassium [Moles/Vol] 3.6 mmol/L Normal 3.3-5.1 [facility] Comment on above: Order Comment: 157 Performed By: #### L 500.2500, L501.5200 #### [facility] [address] [place], [address] Sodium [Moles/Vol] 138 mmol/L Normal 133-145 [facility] Comment on above: Order Comment: 157 Performed By: #### L 500.2500, L501.5200 #### [facility] [address] [place], [address] Urea nitrogen [Mass/Vol] 26 mg/dL High 4-19 [facility] Comment on above: Order Comment: 157 Performed By: #### L 500.2500, L501.5200 #### [facility] [address] [place], [address] Bilirubin directOrdered By: Melissa Reed on 11-08-2024 Bilirubin.direct [Mass/Vol] 0.22 mg/dL 0.00-0.30 [facility] Bilirubin, totalOrdered By: Melissa Reed on 11-08-2024 Bilirubin [Mass/Vol] 0.46 mg/dL 0.00-1.30 [facility] CBC-Complete Blood Cnt No Di ffon 11-08-2024 Erythrocyte distribution width (RBC) [Ratio] 12.8 % Normal 11.6-14.6 [facility] Comment on above: Order Comment: 157 Performed By: #### L 500.2500, L501.5200 #### [facility] [address] [place], [address] Hematocrit (Bld) [Volume fraction] 36.6 % Low 37-47 [facility] Comment on above: Order Comment: 157 Performed By: #### L 500.2500, L501.5200 #### [facility] [address] [place], [address] Hemoglobin (Bld) [Mass/Vol] 11.6 g/dL Low 12.0-15.0 [facility] Comment on above: Order Comment: 157 Performed By: #### L 500.2500, L501.5200 #### [facility] [address] [place], [address] MCH (RBC) [Entitic mass] 30.9 pg Normal 27.0-32.0 [facility] Comment on above: Order Comment: 157 Performed By: #### L 500.2500, L501.5200 #### [facility] [address] [place], [address] MCHC (RBC) [Mass/Vol] 31.7 g/dL Low 32-36 [facility] Comment on above: Order Comment: 157 Performed By: #### L 500.2500, L501.5200 #### [facility] [address] [place], [address] MCV (RBC) [Entitic vol] 97.6 fL Normal 81-99 [facility] Comment on above: Order Comment: 157 Performed By: #### L 500.2500, L501.5200 #### [facility] [address] [place], [address] Platelet mean volume (Bld) [Entitic vol] 10.2 fL Normal 6.2-12.0 [facility] Comment on above: Order Comment: 157 Performed By: #### L 500.2500, L501.5200 #### [facility] [address] [place], [address] Platelets (Bld) [#/Vol] 228 10*3/uL Normal 150-450 [facility] Comment on above: Order Comment: 157 Performed By: #### L 500.2500, L501.5200 #### [facility] [address] [place], [address] RBC (Bld) [#/Vol] 3.75 10*6/uL Low 4.2-5.4 [facility] Comment on above: Order Comment: 157 Performed By: #### L 500.2500, L501.5200 #### [facility] [address] [place], [address] RDW SD 46.0 fl High 35.1-43.9 [facility] Comment on above: Order Comment: 157 Performed By: #### L 500.2500, L501.5200 #### [facility] [address] [place], [address] WBC (Bld) [#/Vol] 8.4 10*3/uL Normal 4.4-11.0 [facility] Comment on above: Order Comment: 157 Performed By: #### L 500.2500, L501.5200 #### [facility] [address] [place], [address] Carbon dioxide, total [Moles /volume] in Central venous bloodOrdered By: Melissa Reed on 11-08-2024 CO2 [Moles/Vol] 28.3 mmol/L 21.0-32.0 [facility] Chloride assayOrdered By: Sd Reed on 11-08-2024 Chloride [Moles/Vol] 101 mmol/L 98-108 [facility] Erythrocyte distribution wid th ratioOrdered By: Melissa Reed on 11-08-2024 Erythrocyte distribution width (RBC) [Ratio] 12.8 % 11.6-14.6 [facility] Erythrocyte distribution wid th standard deviationOrdered By: Melissa Reed on 11-08-2024 Erythrocyte distribution width (RBC) [Ratio] 46.0 fl High 35.1-43.9 [facility] Glomerular filtration rate ( GFR) estimation/1.73 sq m using serum, plasma, or whole bOrdered By: Melissa Reed on 11-08-2024 GFR/1.73 sq M.predicted among non-blacks MDRD (S/P/Bld) [Vol rate/Area] 52 mL/min/{1.73_m2} Low >60 [facility] Comment on above: mL/min/1.73m2 CKD-EP I Creatinine Equation (2020) Hematocrit Auto (Bld) [Volum e fraction]Ordered By: Melissabridgette Reed on 11-08-2024 Hematocrit (Bld) [Volume fraction] 36.6 % Low 37-47 [facility] Hemoglobin measurementOrdere d By: Melissa Reed on 11-08-2024 Hemoglobin (Bld) [Mass/Vol] 11.6 g/dL Low 12.0-15.0 [facility] - Chemistry and C hemistry - challengeOrdered By: Melissa Reed on 11-08-2024 AST [Catalytic activity/Vol] 81 U/L High <32 [facility] Liver Profileon 11-08-2024 Albumin [Mass/Vol] 3.3 g/dL Low 3.4-4.8 [facility] Comment on above: Order Comment: 157 Performed By: #### L 500.2500, L501.5200 #### [facility] [address] [place], [place], [id number] ALK PHOS 110 U/L High 35-104 [facility] Comment on above: Order Comment: 157 Performed By: #### L 500.2500, L501.5200 #### [facility] [address] [place], [place], [id number] ALT [Catalytic activity/Vol] 87 U/L High <=34 [facility] Comment on above: Order Comment: 157 Performed By: #### L 500.2500, L501.5200 #### [facility] [address] [place], [address] AST [Catalytic activity/Vol] 81 U/L High <=31 [facility] Comment on above: Order Comment: 157 Performed By: #### L 500.2500, L501.5200 #### [facility] [address] [place], [address] Bilirubin [Mass/Vol] 0.46 mg/dL Normal 0.00-1.30 [facility] Comment on above: Order Comment: 157 Performed By: #### L 500.2500, L501.5200 #### [facility] [address] [place], [address] Bilirubin.direct [Mass/Vol] 0.22 mg/dL Normal 0.00-0.30 [facility] Comment on above: Order Comment: 157 Performed By: #### L 500.2500, L501.5200 #### [facility] [address] [place], [address] Globulin (S) [Mass/Vol] 2.9 g/dL Normal 2.2-4.2 [facility] Comment on above: Order Comment: 157 Performed By: #### L 500.2500, L501.5200 #### [facility] [address] [place], [address] T PROT 6.3 g/dL Normal 5.9-8.4 [facility] Comment on above: Order Comment: 157 Performed By: #### L 500.2500, L501.5200 #### [facility] [address] [place], [address] MCV (mean corpuscular volume ) determinationOrdered By: Melissa Reed on 11-08-2024 MCV (RBC) [Entitic vol] 97.6 fL 81-99 [facility] Magnesiumon 11-08-2024 Magnesium [Mass/Vol] 1.8 mg/dL Normal 1.5-2.2 [facility] Comment on above: Order Comment: 157 Performed By: #### L 500.2500, L501.5200 #### [facility] [place], [address] Magnesium measurement (mass/ volume)Ordered By: Melissa Reed on 11-08-2024 Magnesium (Unsp spec) [Mass/Vol] 1.8 mg/dL 1.5-2.2 [facility] Mean corpuscular hemoglobin (MCH) determinationOrdered By: Melissa Reed on 11-08-2024 MCH (RBC) [Entitic mass] 30.9 pg 27.0-32.0 [facility] Mean corpuscular hemoglobin concentration (MCHC) determinationOrdered By: Melissa Reed on 11-08-2024 MCHC (RBC) [Mass/Vol] 31.7 g/dL Low 32-36 [facility] Mean platelet volume determi nationOrdered By: Melissa Reed on 11-08-2024 Platelet mean volume (Bld) [Entitic vol] 10.2 fL 6.2-12.0 [facility] Platelet countOrdered By: Sd Reed on 11-08-2024 Platelets (Bld) [#/Vol] 228 10*3/uL 150-450 [facility] Potassium measurement (mass/ volume)Ordered By: Melissa Reed on 11-08-2024 Potassium (Unsp spec) [Mass/Vol] 3.6 mmol/L 3.3-5.1 [facility] RBC Auto (Bld) [#/Vol]Ordere d By: Melissa Reed on 11-08-2024 RBC (Bld) [#/Vol] 3.75 10*6/uL Low 4.2-5.4 [facility] Serum creatinine measurement (mass/volume)Ordered By: Melissa Reed on 11-08-2024 Creatinine [Mass/Vol] 1.08 mg/dL 0.70-1.20 [facility] Serum globulin measurementOr dered By: Melissa Reed on 11-08-2024 Globulin (S) [Mass/Vol] 2.9 g/dL 2.2-4.2 [facility] Serum glucose measurement (m ass/volume)Ordered By: Melissa Reed on 11-08-2024 Glucose [Mass/Vol] 104 mg/dL High 70-99 [facility] Serum or plasma alanine bro otransferase (ALT) measurementOrdered By: Melissa Reed on 11-08-2024 ALT [Catalytic activity/Vol] 87 U/L High <35 [facility] Serum or plasma albumin danae urement (mass/volume)Ordered By: Melissa Reed on 11-08-2024 Albumin [Mass/Vol] 3.3 g/dL Low 3.4-4.8 [facility] Serum or plasma alkaline moustapha sphatase measurementOrdered By: Melissa Reed on 11-08-2024 ALP [Catalytic activity/Vol] 110 U/L High 35-104 [facility] Serum or plasma calcium danae urement (mass/volume)Ordered By: Melissa Reed on 11-08-2024 Calcium [Mass/Vol] 8.8 mg/dL 7.6-11.0 [facility] Serum or plasma urea nitroge n measurement (mass/volume)Ordered By: Melissa Reed on 11-08-2024 Urea nitrogen [Mass/Vol] 26 mg/dL High 4-19 [facility] Sodium levelOrdered By: Rubin Reed on 11-08-2024 Sodium [Moles/Vol] 138 mmol/L 133-145 [facility] Total proteinOrdered By: Lillian Reed on 11-08-2024 Protein [Mass/Vol] 6.3 g/dL 5.9-8.4 [facility] White blood cell (WBC) count Ordered By: Melissa Reed on 11-08-2024 WBC (Bld) [#/Vol] 8.4 10*3/uL 4.4-11.0 [facility] Anion gap in Serum or Plasma Ordered By: Melissa Reed on 10-17-2024 Anion gap [Moles/Vol] 9 mmol/L 5-15 [facility] BUN/creatinine ratioOrdered By: Melissa Reed on 10-17-2024 Urea nitrogen/Creatinine [Mass ratio] 28.5 mg/mg High 10-20 [facility] Basic Metabolic Profile (BMP )on 10-17-2024 BUN/CRE 28.5 RATIO High - [facility] Comment on above: Order Comment: 157 Performed By: #### L 500.2500, L501.5200 #### [facility] [address] [place], [address] Calcium [Mass/Vol] 8.7 mg/dL Normal 7.6-11.0 [facility] Comment on above: Order Comment: 157 Performed By: #### L 500.2500, L501.5200 #### [facility] [address] [place], [address] Chloride [Moles/Vol] 103 mmol/L Normal 98-108 [facility] Comment on above: Order Comment: 157 Performed By: #### L 500.2500, L501.5200 #### [facility] [address] [place], [address] CO2 [Moles/Vol] 28.9 mmol/L Normal 21.0-32.0 [facility] Comment on above: Order Comment: 157 Performed By: #### L 500.2500, L501.5200 #### [facility] [address] [place], [address] Creatinine [Mass/Vol] 1.04 mg/dL Normal 0.70-1.20 [facility] Comment on above: Order Comment: 157 Performed By: #### L 500.2500, L501.5200 #### [facility] [address] [place], [address] GAP 9 Normal 5-15 [facility] Comment on above: Order Comment: 157 Performed By: #### L 500.2500, L501.5200 #### [facility] [address] [place], [address] GFR/1.73 sq M.predicted among non-blacks MDRD (S/P/Bld) [Vol rate/Area] 54 mL/min/{1.73_m2} Low >60 [facility] Comment on above: Order Comment: 157 Result Comment: mL/m in/1.73m2 CKD-EPI Creatinine Equation (2020) Performed By: #### L 500.2500, L501.5200 #### [facility] [address] [place], [address] Glucose [Mass/Vol] 106 mg/dL High 70-99 [facility] Comment on above: Order Comment: 157 Performed By: #### L 500.2500, L501.5200 #### [facility] [address] [place], [address] Potassium [Moles/Vol] 3.8 mmol/L Normal 3.3-5.1 [facility] Comment on above: Order Comment: 157 Performed By: #### L 500.2500, L501.5200 #### [facility] [address] [place], [address] Sodium [Moles/Vol] 140 mmol/L Normal 133-145 [facility] Comment on above: Order Comment: 157 Performed By: #### L 500.2500, L501.5200 #### [facility] [address] [place], [address] Urea nitrogen [Mass/Vol] 30 mg/dL High 4-19 [facility] Comment on above: Order Comment: 157 Performed By: #### L 500.2500, L501.5200 #### [facility] [address] [place], [address] Carbon dioxide, total [Moles /volume] in Central venous bloodOrdered By: Melissa Reed on 10-17-2024 CO2 [Moles/Vol] 28.9 mmol/L 21.0-32.0 [facility] Chloride assayOrdered By: Sd Reed on 10-17-2024 Chloride [Moles/Vol] 103 mmol/L 98-108 [facility] Glomerular filtration rate ( GFR) estimation/1.73 sq m using serum, plasma, or whole bOrdered By: Melissa Reed on 10-17-2024 GFR/1.73 sq M.predicted among non-blacks MDRD (S/P/Bld) [Vol rate/Area] 54 mL/min/{1.73_m2} Low >60 [facility] Comment on above: mL/min/1.73m2 CKD-EP I Creatinine Equation (2020) Magnesiumon 10-17-2024 Magnesium [Mass/Vol] 2.3 mg/dL High 1.5-2.2 [facility] Comment on above: Order Comment: 157 Performed By: #### L 500.2500, L501.5200 #### [facility] [address] [place] [address]. [place], [address] Magnesium measurement (mass/ volume)Ordered By: Melissa Reed on 10-17-2024 Magnesium (Unsp spec) [Mass/Vol] 2.3 mg/dL High 1.5-2.2 [facility] Potassium measurement (mass/ volume)Ordered By: Melissa Reed on 10-17-2024 Potassium (Unsp spec) [Mass/Vol] 3.8 mmol/L 3.3-5.1 [facility] Serum creatinine measurement (mass/volume)Ordered By: Melissa Reed on 10-17-2024 Creatinine [Mass/Vol] 1.04 mg/dL 0.70-1.20 [facility] Serum glucose measurement (m ass/volume)Ordered By: Melissa Reed on 10-17-2024 Glucose [Mass/Vol] 106 mg/dL High 70-99 [facility] Serum or plasma calcium danae urement (mass/volume)Ordered By: Melissa Reed on 10-17-2024 Calcium [Mass/Vol] 8.7 mg/dL 7.6-11.0 [facility] Serum or plasma urea nitroge n measurement (mass/volume)Ordered By: Melissa Reed on 10-17-2024 Urea nitrogen [Mass/Vol] 30 mg/dL High - [facility] Sodium levelOrdered By: Rubin Reed on 10-17-2024 Sodium [Moles/Vol] 140 mmol/L 133-145 [facility] Anion gap in Serum or Plasma Ordered By: Melissa Reed on 10-03-2024 Anion gap [Moles/Vol] 10 mmol/L 5-15 [facility] BUN/creatinine ratioOrdered By: Melissa Reed on 10-03-2024 Urea nitrogen/Creatinine [Mass ratio] 24.4 mg/mg High - [facility] Basic Metabolic Profile (BMP )on 10-03-2024 BUN/CRE 24.4 RATIO High - [facility] Comment on above: Order Comment: 157 Performed By: #### L 500.2500, L501.5200 #### [facility] [address] [place], [address] Calcium [Mass/Vol] 8.7 mg/dL Normal 7.6-11.0 [facility] Comment on above: Order Comment: 157 Performed By: #### L 500.2500, L501.5200 #### [facility] [address] [place], [address] Chloride [Moles/Vol] 102 mmol/L Normal 98-108 [facility] Comment on above: Order Comment: 157 Performed By: #### L 500.2500, L501.5200 #### [facility] [address] [place], [address] CO2 [Moles/Vol] 27.9 mmol/L Normal 21.0-32.0 [facility] Comment on above: Order Comment: 157 Performed By: #### L 500.2500, L501.5200 #### [facility] [address] [place], [address] Creatinine [Mass/Vol] 1.08 mg/dL Normal 0.70-1.20 [facility] Comment on above: Order Comment: 157 Performed By: #### L 500.2500, L501.5200 #### [facility] [address] [place], [address] GAP 10 Normal 5-15 [facility] Comment on above: Order Comment: 157 Performed By: #### L 500.2500, L501.5200 #### [facility] [address] [place], [address] GFR/1.73 sq M.predicted among non-blacks MDRD (S/P/Bld) [Vol rate/Area] 52 mL/min/{1.73_m2} Low >60 [facility] Comment on above: Order Comment: 157 Result Comment: mL/m in/1.73m2 CKD-EPI Creatinine Equation (2020) Performed By: #### L 500.2500, L501.5200 #### [facility] [address] [place], [address] Glucose [Mass/Vol] 179 mg/dL High 70-99 [facility] Comment on above: Order Comment: 157 Performed By: #### L 500.2500, L501.5200 #### [facility] [address] [place], [address] Potassium [Moles/Vol] 3.8 mmol/L Normal 3.3-5.1 [facility] Comment on above: Order Comment: 157 Performed By: #### L 500.2500, L501.5200 #### [facility] [address] [place], [address] Sodium [Moles/Vol] 139 mmol/L Normal 133-145 [facility] Comment on above: Order Comment: 157 Performed By: #### L 500.2500, L501.5200 #### [facility] [address] [place], [address] Urea nitrogen [Mass/Vol] 26 mg/dL High 4-19 [facility] Comment on above: Order Comment: 157 Performed By: #### L 500.2500, L501.5200 #### [facility] [address] [place], [place], [id number] Carbon dioxide, total [Moles /volume] in Central venous bloodOrdered By: Melissa Reed on 10-03-2024 CO2 [Moles/Vol] 27.9 mmol/L 21.0-32.0 [facility] Chloride assayOrdered By: Sd Reed on 10-03-2024 Chloride [Moles/Vol] 102 mmol/L 98-108 [facility] GFR/1.73 sq M.predicted denise g non-blacks MDRD (S/P/Bld) [Vol rate/Area]Ordered By: Melissa Reed on 10-03-2024 Estimated GFR (MDRD) Non-Af Amer 52 Low >60 [facility] Comment on above: mL/min/1.73m2 CKD-EP I Creatinine Equation (2020) Glomerular filtration rate ( GFR) estimation/1.73 sq m using serum, plasma, or whole bOrdered By: Melissa Reed on 10-03-2024 GFR/1.73 sq M.predicted among non-blacks MDRD (S/P/Bld) [Vol rate/Area] 52 mL/min/{1.73_m2} Low >60 [facility] Comment on above: mL/min/1.73m2 CKD-EP I Creatinine Equation (2020) Hemoglobin A1con 10-03-2024 HbA1c (Bld) [Mass fraction] 5.9 % High <=5.6 [facility] Comment on above: Order Comment: 157 Result Comment: Norm al < 5.7 % Prediabetic 5.7 - 6.4 % Diabetic >or= 6.5 % Please note range changes. Performed By: #### L 500.2500, L501.5200 #### [facility] [address] [place], [place], [id number] Hemoglobin A1c percentageOrd ered By: Melissa Reed on 10-03-2024 HbA1c (Bld) [Mass fraction] 5.9 % High <5.7 [facility] Comment on above: Normal < 5.7 % Predi abetic 5.7 - 6.4 % Diabetic >or= 6.5 % Please note range changes. Magnesiumon 10-03-2024 Magnesium [Mass/Vol] 2.2 mg/dL Normal 1.5-2.2 [facility] Comment on above: Order Comment: 157 Performed By: #### L 500.2500, L501.5200 #### [facility] [address] [place], [address] Magnesium (Unsp spec) [Mass/ Vol]Ordered By: Melissa Reed on 10-03-2024 Magnesium [Mass/Vol] 2.2 mg/dL 1.5-2.2 [facility] Magnesium measurement (mass/ volume)Ordered By: Melissa Reed on 10-03-2024 Magnesium (Unsp spec) [Mass/Vol] 2.2 mg/dL 1.5-2.2 [facility] Potassium (Unsp spec) [Mass/ Vol]Ordered By: Melissa Reed on 10-03-2024 Potassium [Moles/Vol] 3.8 mmol/L 3.3-5.1 [facility] Potassium measurement (mass/ volume)Ordered By: Melissa Reed on 10-03-2024 Potassium (Unsp spec) [Mass/Vol] 3.8 mmol/L 3.3-5.1 [facility] Serum creatinine measurement (mass/volume)Ordered By: Melissa Reed on 10-03-2024 Creatinine [Mass/Vol] 1.08 mg/dL 0.70-1.20 [facility] Serum glucose measurement (m ass/volume)Ordered By: Melissa Reed on 10-03-2024 Glucose [Mass/Vol] 179 mg/dL High 70-99 [facility] Serum or plasma calcium danae urement (mass/volume)Ordered By: Melissa Reed on 10-03-2024 Calcium [Mass/Vol] 8.7 mg/dL 7.6-11.0 [facility] Serum or plasma urea nitroge n measurement (mass/volume)Ordered By: Melissa Reed on 10-03-2024 Urea nitrogen [Mass/Vol] 26 mg/dL High 4-19 [facility] Sodium levelOrdered By: Rubin Reed on 10-03-2024 Sodium [Moles/Vol] 139 mmol/L 133-145 [facility] Urine Cultureon 09-26-2024 [facility] Results called on 09/26/24-112 by MARYLOU to [facility] (RIZWAN) . Copy of report sent to In[facility]inter [id number] 09/25/24 1616 ASNIPES. ESBL Escherichia coli Lawn Count 25,000-50,000 MARKER ESBL producing OrganismA MARKER [...] S Tobramycin Islt LAVINIA <=1 S Normal [facility] Comment on above: Performed By: #### L 500.2500, L501.5200 #### [facility] [address] [facility] [place] [place], [address] Bacteria LM.HPF (Urine sed) [#/Area]Ordered By: Melissa Reed on 09-23-2024 Urine Bacteria RARE /hpf None Seen [facility] Bilirubin Test strip Ql (U)O rdered By: Melissa Reed on 09-23-2024 Bilirubin Ql (U) Negative Negative [facility] Epithelial cells.squamous LM Ql (Urine sed)Ordered By: Melissa Reed on 09-23-2024 Epithelial cells.squamous LM.HPF (Urine sed) [#/Area] 0 /[HPF] 5-10 [facility] Glucose Ql (U)Ordered By: Sd Reed on 09-23-2024 Urine Glucose (UA) Normal mg/dl Normal [facility] Ketones Test strip Ql (U)Ord ered By: Melissa Reed on 09-23-2024 Ketones Ql (U) Negative Negative [facility] Microscopic analysis of urin e for red blood cells (RBC)Ordered By: Melissa Reed on 09-23-2024 Microscopic analysis of urine for red blood cells (RBC) 0 SEEN /hpf 0-5 [facility] Urine RBC 0 SEEN /hpf 0-5 [facility] Mucus LM Ql (Urine sed)Order ed By: Melissa Reed on 09-23-2024 Mucus Ql (Urine sed) 0 SEEN /hpf [facility] Nitrite Test strip Ql (U)Ord ered By: Melissa Reed on 09-23-2024 Nitrite Ql (U) Negative Negative [facility] Protein Test strip Ql (U)Ord ered By: Melissa Reed on 09-23-2024 Protein Ql (U) 30 mg/dl High Negative [facility] Squamous epithelial cells de tection in urine sediment by light microscopyOrdered By: Melissa Reed on 09-23-2024 Epithelial cells.squamous LM Ql (Urine sed) 0-5 SEEN /hpf 5-10 [facility] Urinalysis, Completeon 09-23 BACTERIA RARE Normal None Seen [facility] Comment on above: Order Comment: CLEAN CATCH Performed By: #### L 500.2500, L501.5200 #### [facility] [address] [place], [address] EPI,SQUAMOUS 0-5 SEEN Normal 5-10 [facility] Comment on above: Order Comment: CLEAN CATCH Performed By: #### L 500.2500, L501.5200 #### [facility] [address] [place], [address] WBC 50-100 SEEN Normal 0-5 [facility] Comment on above: Order Comment: CLEAN CATCH Performed By: #### L 500.2500, L501.5200 #### [facility] [address] [place], [address] Mucus Ql (Urine sed) 0 SEEN Normal [facility] Comment on above: Order Comment: CLEAN CATCH Performed By: #### L 500.2500, L501.5200 #### [facility] [address] [place], [address] RBC 0 SEEN Normal 0-5 [facility] Comment on above: Order Comment: CLEAN CATCH Performed By: #### L 500.2500, L501.5200 #### [facility] [address] [place], [address] Urine blood detectionOrdered By: Melissa Reed on 09-23-2024 Urine Occult Blood 25 /ul High Negative [facility] Urine clarityOrdered By: Lillian Reed on 09-23-2024 Clarity (U) Sl. Cloudy Clear [facility] Urine color determinationOrd ered By: Melissa Reed on 09-23-2024 Color (U) Yellow Yellow [facility] Urine cultureOrdered By: Lillian Reed on 09-23-2024 Bacteria identified Cx Nom (U) ESBL Escherichia coli Abnormal [facility] Urine glucose detectionOrder ed By: Melissa Reed on 09-23-2024 Glucose Ql (U) Normal mg/dl Normal [facility] Urine leukocyte esterase det ection by dipstickOrdered By: Melissa Reed on 09-23-2024 Leukocyte esterase Test strip Ql (U) 500 /ul High Negative [facility] Urine pHOrdered By: Melissa kerr on 09-23-2024 pH (U) 6.0 [pH] 5.0 - 8.0 [facility] Urine sediment bacteria coun t by microscopy (number/high power field)Ordered By: Melissa Reed on 09-23-2024 Bacteria LM.HPF (Urine sed) [#/Area] RARE /hpf None Seen [facility] Urine specific gravity measu rementOrdered By: Melissa Reed on 09-23-2024 Specific gravity (U) [Rel density] 1.015 1.002-1.030 [facility] Urine urobilinogen measureme ntOrdered By: Melissa Reed on 09-23-2024 Urobilinogen Ql (U) Normal mg/dl Normal [facility] Urobilinogen Ql (U)Ordered B y: Melissa Reed on 09-23-2024 Urine Urobilinogen Normal mg/dl Normal [facility] White blood cell countOrdere d By: Melissa Reed on 09-23-2024 Urine WBC 50-100 SEEN /hpf 0-5 [facility] White blood cell count 50-100 SEEN /hpf 0-5 [facility] Anion gap in Serum or Plasma Ordered By: Melissa Reed on 09-19-2024 Anion gap [Moles/Vol] 9 mmol/L 5-15 [facility] BUN/creatinine ratioOrdered By: Melissa Reed on 09-19-2024 Urea nitrogen/Creatinine [Mass ratio] 30.0 mg/mg High 10-20 [facility] Basic Metabolic Profile (BMP )on 09-19-2024 BUN/CRE 30.0 RATIO High 10-20 [facility] Comment on above: Order Comment: 157 Performed By: #### L 501.5200, L500.2500 #### [facility] [address] [place], [address] Calcium [Mass/Vol] 8.6 mg/dL Normal 7.6-11.0 [facility] Comment on above: Order Comment: 157 Performed By: #### L 501.5200, L500.2500 #### [facility] [address] [place], [address] Chloride [Moles/Vol] 103 mmol/L Normal 98-108 [facility] Comment on above: Order Comment: 157 Performed By: #### L 501.5200, L500.2500 #### [facility] [address] [place], [address] CO2 [Moles/Vol] 27.2 mmol/L Normal 21.0-32.0 [facility] Comment on above: Order Comment: 157 Performed By: #### L 501.5200, L500.2500 #### [facility] [address] [place], [address] Creatinine [Mass/Vol] 1.13 mg/dL Normal 0.70-1.20 [facility] Comment on above: Order Comment: 157 Performed By: #### L 501.5200, L500.2500 #### [facility] [address] [place], [address] GAP 9 Normal 5-15 [facility] Comment on above: Order Comment: 157 Performed By: #### L 501.5200, L500.2500 #### [facility] [address] [place], [address] GFR/1.73 sq M.predicted among non-blacks MDRD (S/P/Bld) [Vol rate/Area] 49 mL/min/{1.73_m2} Low >60 [facility] Comment on above: Order Comment: 157 Result Comment: mL/m in/1.73m2 CKD-EPI Creatinine Equation (2020) Performed By: #### L 501.5200, L500.2500 #### [facility] [address] [place], [address] Glucose [Mass/Vol] 165 mg/dL High 70-99 [facility] Comment on above: Order Comment: 157 Performed By: #### L 501.5200, L500.2500 #### [facility] [address] [place], [address] Potassium [Moles/Vol] 4.0 mmol/L Normal 3.3-5.1 [facility] Comment on above: Order Comment: 157 Performed By: #### L 501.5200, L500.2500 #### [facility] [address] [place], [address] Sodium [Moles/Vol] 140 mmol/L Normal 133-145 [facility] Comment on above: Order Comment: 157 Performed By: #### L 501.5200, L500.2500 #### [facility] [address] [place], [address] Urea nitrogen [Mass/Vol] 34 mg/dL High 4-19 [facility] Comment on above: Order Comment: 157 Performed By: #### L 501.5200, L500.2500 #### [facility] [address] [place], [address] Carbon dioxide, total [Moles /volume] in Central venous bloodOrdered By: Melissa Reed on 09-19-2024 CO2 [Moles/Vol] 27.2 mmol/L 21.0-32.0 [facility] Chloride assayOrdered By: Sd Reed on 09-19-2024 Chloride [Moles/Vol] 103 mmol/L 98-108 [facility] GFR/1.73 sq M.predicted denise g non-blacks MDRD (S/P/Bld) [Vol rate/Area]Ordered By: Melissa Reed on 09-19-2024 Estimated GFR (MDRD) Non-Af Amer 49 Low >60 [facility] Comment on above: mL/min/1.73m2 CKD-EP I Creatinine Equation (2020) Glomerular filtration rate ( GFR) estimation/1.73 sq m using serum, plasma, or whole bOrdered By: Melissa Reed on 09-19-2024 GFR/1.73 sq M.predicted among non-blacks MDRD (S/P/Bld) [Vol rate/Area] 49 mL/min/{1.73_m2} Low >60 [facility] Comment on above: mL/min/1.73m2 CKD-EP I Creatinine Equation (2020) Magnesiumon 09-19-2024 Magnesium [Mass/Vol] 2.2 mg/dL Normal 1.5-2.2 [facility] Comment on above: Order Comment: 157 Performed By: #### L 501.5200, L500.2500 #### [facility] [place], [address] Magnesium (Unsp spec) [Mass/ Vol]Ordered By: Melissa Reed on 09-19-2024 Magnesium [Mass/Vol] 2.2 mg/dL 1.5-2.2 [facility] Magnesium measurement (mass/ volume)Ordered By: Melissa Reed on 09-19-2024 Magnesium (Unsp spec) [Mass/Vol] 2.2 mg/dL 1.5-2.2 [facility] Potassium (Unsp spec) [Mass/ Vol]Ordered By: Melissa eRed on 09-19-2024 Potassium [Moles/Vol] 4.0 mmol/L 3.3-5.1 [facility] Potassium measurement (mass/ volume)Ordered By: Melissa Reed on 09-19-2024 Potassium (Unsp spec) [Mass/Vol] 4.0 mmol/L 3.3-5.1 [facility] Serum creatinine measurement (mass/volume)Ordered By: Melissa Reed on 09-19-2024 Creatinine [Mass/Vol] 1.13 mg/dL 0.70-1.20 [facility] Serum glucose measurement (m ass/volume)Ordered By: Melissa Reed on 09-19-2024 Glucose [Mass/Vol] 165 mg/dL High 70-99 [facility] Serum or plasma calcium danae urement (mass/volume)Ordered By: Melissa Reed on 09-19-2024 Calcium [Mass/Vol] 8.6 mg/dL 7.6-11.0 [facility] Serum or plasma urea nitroge n measurement (mass/volume)Ordered By: Melissa Reed on 09-19-2024 Urea nitrogen [Mass/Vol] 34 mg/dL High 4-19 [facility] Sodium levelOrdered By: Rubin Reed on 09-19-2024 Sodium [Moles/Vol] 140 mmol/L 133-145 [facility] Urine Cultureon 09-19-2024 [facility] REPOR T ESCHERICHIA COLI mCIM [...] [id number] 09/08/24 0701 CHARLEYBRITTNI. ESBL Escherichia coli Lawn Count >100,000 MARKER Possible Carbapenemase producing EnterobacteriaceaeA [...] S Tobramycin Islt LAVINIA <=1 S Normal [facility] Comment on above: Performed By: #### M 100.2200, L400.0001 #### [facility] [address] [place], [place], [address] Urinalysis, Completeon 09-06 EPI,TRANSITION 0-5 SEEN Normal 0-5 [facility] Comment on above: Order Comment: CLEAN CATCH Performed By: #### M 100.2200, L400.0001 #### [facility] [address] [place], [address] BACTERIA 3+ /hpf Normal None Seen [facility] Comment on above: Order Comment: CLEAN CATCH Performed By: #### M 100.2200, L400.0001 #### [facility] [address] [place], [address] EPI,SQUAMOUS 5-10 SEEN Normal 5-10 [facility] Comment on above: Order Comment: CLEAN CATCH Performed By: #### M 100.2200, L400.0001 #### [facility] [address] [place], [address] RBC 0-5 SEEN Normal 0-5 [facility] Comment on above: Order Comment: CLEAN CATCH Performed By: #### M 100.2200, L400.0001 #### [facility] [address] [place], [address] WBC 25-50 SEEN Normal 0-5 [facility] Comment on above: Order Comment: CLEAN CATCH Performed By: #### M 100.2200, L400.0001 #### [facility] [address] [place], [address] Mucus Ql (Urine sed) 0 SEEN Normal [facility] Comment on above: Order Comment: CLEAN CATCH Performed By: #### M 100.2200, L400.0001 #### [facility] [address] [place], [address] Bilirubin Test strip Ql (U)O rdered By: Melissa Reed on 09-05-2024 Bilirubin Ql (U) Negative Negative [facility] Epithelial cells.squamous LM Ql (Urine sed)Ordered By: Melissa Reed on 09-05-2024 Epithelial cells.squamous LM.HPF (Urine sed) [#/Area] 5 /[HPF] 5-10 [facility] Glucose Ql (U)Ordered By: Sd Reed on 09-05-2024 Urine Glucose (UA) Normal mg/dl Normal [facility] Ketones Test strip Ql (U)Ord ered By: Melissa Reed on 09-05-2024 Ketones Ql (U) Negative Negative [facility] Microscopic analysis of urin e for red blood cells (RBC)Ordered By: Melissa Reed on 09-05-2024 Microscopic analysis of urine for red blood cells (RBC) 0-5 SEEN /hpf 0-5 [facility] Urine RBC 0-5 SEEN /hpf 0-5 [facility] Mucus LM Ql (Urine sed)Order ed By: Melissa Reed on 09-05-2024 Mucus Ql (Urine sed) 0 SEEN /hpf [facility] Nitrite Test strip Ql (U)Ord ered By: Melissa Reed on 09-05-2024 Nitrite Ql (U) Positive High Negative [facility] Protein Test strip Ql (U)Ord ered By: Melissa Reed on 09-05-2024 Protein Ql (U) 30 mg/dl High Negative [facility] Squamous epithelial cells de tection in urine sediment by light microscopyOrdered By: Melissa Reed on 09-05-2024 Epithelial cells.squamous LM Ql (Urine sed) 5-10 SEEN /hpf 5-10 [facility] Transitional cells LM Ql (Ur ine sed)Ordered By: Melissa Reed on 09-05-2024 Urine Transitional Epithelial Cells 0-5 SEEN /hpf 0-5 [facility] Transitional cells detection in urine sediment by light microscopyOrdered By: Melissa Reed on 09-05-2024 Transitional cells LM Ql (Urine sed) 0-5 SEEN /hpf 0-5 [facility] Urine blood detectionOrdered By: Melissa Reed on 09-05-2024 Urine Occult Blood 10 /ul High Negative [facility] Urine clarityOrdered By: Lillian Reed on 09-05-2024 Clarity (U) Sl. Cloudy Clear [facility] Urine color determinationOrd ered By: Melissa Reed on 09-05-2024 Color (U) Yellow Yellow [facility] Urine cultureOrdered By: Lillian Reed on 09-05-2024 Bacteria identified Cx Nom (U) ESBL Escherichia coli Abnormal [facility] Urine glucose detectionOrder ed By: Melissa Reed on 09-05-2024 Glucose Ql (U) Normal mg/dl Normal [facility] Urine leukocyte esterase det ection by dipstickOrdered By: Melissa Reed on 09-05-2024 Leukocyte esterase Test strip Ql (U) 500 /ul High Negative [facility] Urine pHOrdered By: Melissa kerr on 09-05-2024 pH (U) 6.5 [pH] 5.0 - 8.0 [facility] Urine sediment bacteria coun t by microscopy (number/high power field)Ordered By: Melissa Reed on 09-05-2024 Bacteria LM.HPF (Urine sed) [#/Area] 3 /[HPF] None Seen [facility] Urine specific gravity measu rementOrdered By: Melissa Reed on 09-05-2024 Specific gravity (U) [Rel density] 1.015 1.002-1.030 [facility] Urine urobilinogen measureme ntOrdered By: Melissa Reed on 09-05-2024 Urobilinogen Ql (U) Normal mg/dl Normal [facility] Urobilinogen Ql (U)Ordered B y: Melissa Reed on 09-05-2024 Urine Urobilinogen Normal mg/dl Normal [facility] White blood cell countOrdere d By: Melissa Reed on 09-05-2024 Urine WBC 25-50 SEEN /hpf 0-5 [facility] White blood cell count 25-50 SEEN /hpf 0-5 [facility] Anion gap in Serum or Plasma Ordered By: Melissa Reed on 08-22-2024 Anion gap [Moles/Vol] 11 mmol/L 5-15 [facility] BUN/creatinine ratioOrdered By: Melissa Reed on 08-22-2024 Urea nitrogen/Creatinine [Mass ratio] 21.6 mg/mg High 10- [facility] Basic Metabolic Profile (BMP )on 08-22-2024 BUN/CRE 21.6 RATIO High 04-07 [facility] Comment on above: Performed By: #### M 100.2200, L400.0001 #### [facility] [address] [place], [place], [id number] Calcium [Mass/Vol] 8.8 mg/dL Normal 7.6-11.0 [facility] Comment on above: Performed By: #### M 100.2200, L400.0001 #### [facility] [address] [place], [address] Chloride [Moles/Vol] 103 mmol/L Normal 98-108 [facility] Comment on above: Performed By: #### M 100.2200, L400.0001 #### [facility] [address] [place], [address] CO2 [Moles/Vol] 24.4 mmol/L Normal 21.0-32.0 [facility] Comment on above: Performed By: #### M 100.2200, L400.0001 #### [facility] [address] [place], [address] Creatinine [Mass/Vol] 1.14 mg/dL Normal 0.70-1.20 [facility] Comment on above: Performed By: #### M 100.2200, L400.0001 #### [facility] [address] [place], [address] GAP 11 Normal 5-15 [facility] Comment on above: Performed By: #### M 100.2200, L400.0001 #### [facility] [address] [place], [address] GFR/1.73 sq M.predicted among non-blacks MDRD (S/P/Bld) [Vol rate/Area] 49 mL/min/{1.73_m2} Low >60 [facility] Comment on above: Result Comment: mL/m in/1.73m2 CKD-EPI Creatinine Equation (2020) Performed By: #### M 100.2200, L400.0001 #### [facility] [address] [place], [address] Glucose [Mass/Vol] 104 mg/dL High 70-99 [facility] Comment on above: Performed By: #### M 100.2200, L400.0001 #### [facility] [address] [place], [address] Potassium [Moles/Vol] 4.1 mmol/L Normal 3.3-5.1 [facility] Comment on above: Result Comment: Hemo lysis present, Results??could be affected. ?? Performed By: #### M 100.2200, L400.0001 #### [facility] [address] [place], [address] Sodium [Moles/Vol] 138 mmol/L Normal 133-145 [facility] Comment on above: Performed By: #### M 100.2200, L400.0001 #### [facility] [address] [place], [address] Urea nitrogen [Mass/Vol] 25 mg/dL High 4-19 [facility] Comment on above: Performed By: #### M 100.2200, L400.0001 #### [facility] [address] [place], [address] Carbon dioxide, total [Moles /volume] in Central venous bloodOrdered By: Melissa Reed on 08-22-2024 CO2 [Moles/Vol] 24.4 mmol/L 21.0-32.0 [facility] Chloride assayOrdered By: Sd Reed on 08-22-2024 Chloride [Moles/Vol] 103 mmol/L 98-108 [facility] GFR/1.73 sq M.predicted denise g non-blacks MDRD (S/P/Bld) [Vol rate/Area]Ordered By: Melissa Reed on 08-22-2024 Estimated GFR (MDRD) Non-Af Amer 49 Low >60 [facility] Comment on above: mL/min/1.73m2 CKD-EP I Creatinine Equation (2020) Glomerular filtration rate ( GFR) estimation/1.73 sq m using serum, plasma, or whole bOrdered By: Melissa Reed on 08-22-2024 GFR/1.73 sq M.predicted among non-blacks MDRD (S/P/Bld) [Vol rate/Area] 49 mL/min/{1.73_m2} Low >60 [facility] Comment on above: mL/min/1.73m2 CKD-EP I Creatinine Equation (2020) Magnesiumon 08-22-2024 Magnesium [Mass/Vol] 2.3 mg/dL High 1.5-2.2 [facility] Comment on above: Performed By: #### M 100.2200, L400.0001 #### [facility] [address] [place], [address] Magnesium (Unsp spec) [Mass/ Vol]Ordered By: Melissa Reed on 08-22-2024 Magnesium [Mass/Vol] 2.3 mg/dL High 1.5-2.2 [facility] Magnesium measurement (mass/ volume)Ordered By: Melissa Reed on 08-22-2024 Magnesium (Unsp spec) [Mass/Vol] 2.3 mg/dL High 1.5-2.2 [facility] Potassium (Unsp spec) [Mass/ Vol]Ordered By: Melissa Reed on 08-22-2024 Potassium [Moles/Vol] 4.1 mmol/L 3.3-5.1 [facility] Comment on above: Hemolysis present, R esults could be affected. Potassium measurement (mass/ volume)Ordered By: Melissa Reed on 08-22-2024 Potassium (Unsp spec) [Mass/Vol] 4.1 mmol/L 3.3-5.1 [facility] Comment on above: Hemolysis present, R esults could be affected. Serum creatinine measurement (mass/volume)Ordered By: Melissa Reed on 08-22-2024 Creatinine [Mass/Vol] 1.14 mg/dL 0.70-1.20 [facility] Serum glucose measurement (m ass/volume)Ordered By: Melissa Reed on 08-22-2024 Glucose [Mass/Vol] 104 mg/dL High 70-99 [facility] Serum or plasma calcium danae urement (mass/volume)Ordered By: Melissa Reed on 08-22-2024 Calcium [Mass/Vol] 8.8 mg/dL 7.6-11.0 [facility] Serum or plasma urea nitroge n measurement (mass/volume)Ordered By: Melissa Reed on 08-22-2024 Urea nitrogen [Mass/Vol] 25 mg/dL High 10-05 [facility] Sodium levelOrdered By: Rubin Reed on 08-22-2024 Sodium [Moles/Vol] 138 mmol/L 133-145 [facility] Urine Cultureon 08-10-2024 [facility] Copy of report sent to Infection Control Printer [id number] 08/10/24 0702 BLUCAS. ESBL Escherichia coli Lawn Count 80,000-100,000 ESBL Escherichia coli: REACTION Ampicillin [...] S Tobramycin Islt LAVINIA <=1 S Normal [facility] Comment on above: Performed By: #### M 100.2200, L400.0001 #### [facility] [address] [place], [address] Basic Metabolic Profile (BMP )on 08-08-2024 BUN/CRE 27.6 RATIO High - [facility] Comment on above: Performed By: #### L 500.2500, L501.5200 #### [facility] [address] [place], [address] CA,Total 8.6 mg/dL Normal 8.5-10.1 [facility] Comment on above: Performed By: #### L 500.2500, L501.5200 #### [facility] [address] [place], [address] Chloride [Moles/Vol] 103 mmol/L Normal 98-107 [facility] Comment on above: Performed By: #### L 500.2500, L501.5200 #### [facility] [address] [place], [address] CO2 [Moles/Vol] 31.0 mmol/L Normal 21.0-32.0 [facility] Comment on above: Performed By: #### L 500.2500, L501.5200 #### [facility] [address] [place], [address] Creatinine [Mass/Vol] 1.23 mg/dL High 0.55-1.02 [facility] Comment on above: Result Comment: The validity of the calculated GFR GFRAA in patients over 70 years has not been determined. Clinical correlation is essential. Performed By: #### L 500.2500, L501.5200 #### [facility] [address] [place], [address] EST GFR - AA 54 mL/min Low >60 [facility] Comment on above: Result Comment: Afri can [place] GFR Calc Performed By: #### L 500.2500, L501.5200 #### [facility] [address] [place], [address] GAP 4 Low 5-15 [facility] Comment on above: Performed By: #### L 500.2500, L501.5200 #### [facility] [address] [place], [address] GFR/1.73 sq M.predicted among non-blacks MDRD (S/P/Bld) [Vol rate/Area] 45 mL/min/{1.73_m2} Low >60 [facility] Comment on above: Result Comment: Non- GFR Calc Performed By: #### L 500.2500, L501.5200 #### [facility] [address] [place], [address] Glucose [Mass/Vol] 192 mg/dL High 74-106 [facility] Comment on above: Result Comment: Fast ing Glucose result greater than or equal to 126 mg/dL suggests DIABETES MELLITUS per A.D.A. criteria. Performed By: #### L 500.2500, L501.5200 #### [facility] [address] [place], [address] Potassium [Moles/Vol] 4.1 mmol/L Normal 3.5-5.1 [facility] Comment on above: Performed By: #### L 500.2500, L501.5200 #### [facility] [address] [place], [address] Sodium [Moles/Vol] 138 mmol/L Normal 136-145 [facility] Comment on above: Performed By: #### L 500.2500, L501.5200 #### [facility] [address] [place], [address] Urea nitrogen [Mass/Vol] 34 mg/dL High 7-18 [facility] Comment on above: Performed By: #### L 500.2500, L501.5200 #### [facility] [address] [place], [address] Blood urea nitrogen (BUN)/cr eatinine ratioOrdered By: Melissa Reed on 08-08-2024 Urea nitrogen/Creatinine [Mass ratio] 27.6 mg/mg High 10-20 [facility] Carbon dioxide measurementOr dered By: Melissa Reed on 08-08-2024 CO2 [Moles/Vol] 31.0 mmol/L 21.0-32.0 [facility] Chloride measurementOrdered By: Melissa Reed on 08-08-2024 Chloride [Moles/Vol] 103 mmol/L 98-107 [facility] Estimated glomerular filtrat ion rate (GFR) AmericanOrdered By: Melissa Reed on 08-08-2024 Estimated GFR (MDRD) Amer 54 mL/min Low >60 [facility] Comment on above: GFR Calc Glomerular filtration rate ( GFR) estimationOrdered By: Melissa Reed on 08-08-2024 Estimated GFR (MDRD) Non-Af Amer 45 mL/min Low >60 [facility] Comment on above: Non- GFR Calc GFR/1.73 sq M.predicted among non-blacks MDRD (S/P/Bld) [Vol rate/Area] 45 mL/min/{1.73_m2} Low >60 [facility] Comment on above: Non- GFR Calc Glucose measurementOrdered B y: Melissa Reed on 08-08-2024 Glucose [Mass/Vol] 192 mg/dL High 74-106 [facility] Comment on above: Fasting Glucose resu lt greater than or equal to 126 mg/dL suggests DIABETES MELLITUS per A.D.A. criteria. Magnesiumon 08-08-2024 Magnesium [Mass/Vol] 2.2 mg/dL Normal 1.6-2.6 [facility] Comment on above: Performed By: #### L 500.2500, L501.5200 #### [facility] [address] [place] [address], [id number] Magnesium measurementOrdered By: Melissa Reed on 08-08-2024 Magnesium [Mass/Vol] 2.2 mg/dL 1.6-2.6 [facility] Potassium measurementOrdered By: Melissa Reed on 08-08-2024 Potassium [Moles/Vol] 4.1 mmol/L 3.5-5.1 [facility] Serum anion gap measurementO rdered By: Melissa Reed on 08-08-2024 Anion gap [Moles/Vol] 4 mmol/L Low 5-15 [facility] Serum or plasma calcium danae urement (mass/volume)Ordered By: Melissa Reed on 08-08-2024 Calcium [Mass/Vol] 8.6 mg/dL 8.5-10.1 [facility] Serum or plasma creatinine m easurement (mass/volume)Ordered By: Melissa Reed on 08-08-2024 Creatinine [Mass/Vol] 1.23 mg/dL High 0.55-1.02 [facility] Comment on above: The validity of the calculated GFR & GFRAA in patients over 70 years has not been determined. Clinical correlation is essential. Serum or plasma urea nitroge n measurement (mass/volume)Ordered By: Melissa Reed on 08-08-2024 Urea nitrogen [Mass/Vol] 34 mg/dL High 7-18 [facility] Sodium levelOrdered By: Rubin Reed on 08-08-2024 Sodium [Moles/Vol] 138 mmol/L 136-145 [facility] Urinalysis, Completeon 08-07 BACTERIA 4+ /hpf Normal None Seen [facility] Comment on above: Order Comment: CLEAN CATCH Performed By: #### M 100.2200, L400.0001 #### [facility] [address] [place], [address] EPI,SQUAMOUS 0-5 SEEN Normal 5-10 [facility] Comment on above: Order Comment: CLEAN CATCH Performed By: #### M 100.2200, L400.0001 #### [facility] [address] [place], [address] RBC 0-5 SEEN Normal 0-5 [facility] Comment on above: Order Comment: CLEAN CATCH Performed By: #### M 100.2200, L400.0001 #### [facility] [address] [place], [address] WBC 10-25 SEEN Normal 0-5 [facility] Comment on above: Order Comment: CLEAN CATCH Performed By: #### M 100.2200, L400.0001 #### [facility] [address] [place], [address] Mucus Ql (Urine sed) 0 SEEN Normal [facility] Comment on above: Order Comment: CLEAN CATCH Performed By: #### M 100.2200, L400.0001 #### [facility] [address] [place], [address] Bilirubin Test strip Ql (U)O rdered By: Melissa Reed on 08-06-2024 Bilirubin Ql (U) Negative Negative [facility] Epithelial cells.squamous LM Ql (Urine sed)Ordered By: Melissa Reed on 08-06-2024 Epithelial cells.squamous LM.HPF (Urine sed) [#/Area] 0 /[HPF] 5-10 [facility] Glucose Ql (U)Ordered By: Sd Reed on 08-06-2024 Urine Glucose (UA) Normal mg/dl Normal [facility] Ketones Test strip Ql (U)Ord ered By: Melissa Reed on 08-06-2024 Ketones Ql (U) Negative Negative [facility] Microscopic analysis of urin e for red blood cells (RBC)Ordered By: Melissa Reed on 08-06-2024 Microscopic analysis of urine for red blood cells (RBC) 0-5 SEEN /hpf 0-5 [facility] Urine RBC 0-5 SEEN /hpf 0-5 [facility] Mucus LM Ql (Urine sed)Order ed By: Melissa Reed on 08-06-2024 Mucus Ql (Urine sed) 0 SEEN /hpf [facility] Nitrite Test strip Ql (U)Ord ered By: Melissa Reed on 08-06-2024 Nitrite Ql (U) Positive High Negative [facility] Protein Test strip Ql (U)Ord ered By: Melissa Reed on 08-06-2024 Protein Ql (U) Negative Negative [facility] Squamous epithelial cells de tection in urine sediment by light microscopyOrdered By: Melissa Reed on 08-06-2024 Epithelial cells.squamous LM Ql (Urine sed) 0-5 SEEN /hpf 5-10 [facility] Urine blood detectionOrdered By: Melissa Reed on 08-06-2024 Urine Occult Blood Negative Negative [facility] Urine clarityOrdered By: Lillian Reed on 08-06-2024 Clarity (U) Cloudy Clear [facility] Urine color determinationOrd ered By: Melissa Reed on 08-06-2024 Color (U) Yellow Yellow [facility] Urine cultureOrdered By: Lillian Reed on 08-06-2024 Bacteria identified Cx Nom (U) ESBL Escherichia coli Abnormal [facility] Urine glucose detectionOrder ed By: Melissa Reed on 08-06-2024 Glucose Ql (U) Normal mg/dl Normal [facility] Urine leukocyte esterase det ection by dipstickOrdered By: Melissa Reed on 08-06-2024 Leukocyte esterase Test strip Ql (U) 500 /ul High Negative [facility] Urine pHOrdered By: Melissa Heaton udla on 08-06-2024 pH (U) 7.0 [pH] 5.0 - 8.0 [facility] Urine sediment bacteria coun t by microscopy (number/high power field)Ordered By: Melissa Reed on 08-06-2024 Bacteria LM.HPF (Urine sed) [#/Area] 4 /[HPF] None Seen [facility] Urine specific gravity measu rementOrdered By: Melissa Reed on 08-06-2024 Specific gravity (U) [Rel density] 1.010 1.002-1.030 [facility] Urine urobilinogen measureme ntOrdered By: Melissa Reed on 08-06-2024 Urobilinogen Ql (U) Normal mg/dl Normal [facility] Urobilinogen Ql (U)Ordered B y: Melissa Reed on 08-06-2024 Urine Urobilinogen Normal mg/dl Normal [facility] White blood cell countOrdere d By: Melissa Reed on 08-06-2024 Urine WBC 10-25 SEEN /hpf 0-5 [facility] White blood cell count 10-25 SEEN /hpf 0-5 [facility] Cerv Spine 2 or 3 Viewson Cerv Spine 2 or 3 Views [facility] [address] [place] [address] Cerv Spine 2 or 3 Views MR#: [id number] Acct: [id number] Name: RADHA SANDOVAL Rep #: [id number] : 1945 F 78 From: Abner Castro DO PCP: Melissa Reed MD Status: REG CLI Study: Cerv Spine 2 or 3 Views Date of Exam: 07/31/24 Exam# [id number] Ordering Dr: Gypsy Argueta MD PROCEDURE: CERVICAL [...] Reversal of the cervical lordosis. [facility]: Dr. Gypsy Argueta MD; Melissa Reed MD [place]: Signed Normal [facility] Shoulder min 2 Viewson 07-31 Shoulder min 2 Views [facility] [address] [place] [address] [id number] Shoulder min 2 Views MR#: [id number] Acct: [id number] Name: RADHA SANDOVAL Rep #: [id number] : 1945 F 78 From: Devendra Magallon PCP: Melissa Reed MD Status: REG CLI Study: Shoulder min 2 Views Date of Exam: 07/31/24 Exam# [id number] Ordering Dr: Gypsy Argueta MD PROCEDURE: Left [...] Dr. Gypsy Argueta MD; Melissa Reed MD [place]: Signed Normal [facility] Shoulder min 2 Views [facility] [address] [place] [address] Shoulder min 2 Views MR#: [id number] Acct: [id number] Name: RADHA SANDOVAL Rep #: [id number] : 1945 F 78 From: Devendra Magallon PCP: Melissa Reed MD Status: REG CLI Study: Shoulder min 2 Views Date of Exam: 07/31/24 Exam# [id number] Ordering Dr: Gypsy Argueta MD PROCEDURE: Right shoulder radiographs REASON FOR EXAM: Pain TECHNIQUE: Five views of the right shoulder COMPARISON: None. FINDINGS: See impression RAD/Shoulder min 2 Views IMPRESSION: Limited exam due to patient immobility. Negative for acute displaced fracture or dislocation. Probable severe glenohumeral joint osteoarthritis. Acromioclavicular joint is intact. Reading Location: [facility] CC: Dr. Gypsy Argueta MD; Melissa Reed MD [place]: Signed Normal [facility] Basic Metabolic Profile (BMP )on 07-25-2024 BUN/CRE 26.7 RATIO High 10-20 [facility] Comment on above: Order Comment: 157 Performed By: #### L 500.2500, L501.5200 #### [facility] [address] [place], [address] CA,Total 9.1 mg/dL Normal 8.5-10.1 [facility] Comment on above: Order Comment: 157 Performed By: #### L 500.2500, L501.5200 #### [facility] [address] [facility] [place], [address] Chloride [Moles/Vol] 103 mmol/L Normal 98-107 [facility] Comment on above: Order Comment: 157 Performed By: #### L 500.2500, L501.5200 #### [facility] [address] [place] [place], [address] CO2 [Moles/Vol] 31.0 mmol/L Normal 21.0-32.0 [facility] Comment on above: Order Comment: 157 Performed By: #### L 500.2500, L501.5200 #### [facility] [address] [place], [address] Creatinine [Mass/Vol] 0.97 mg/dL Normal 0.55-1.02 [facility] Comment on above: Order Comment: 157 Result Comment: The validity of the calculated GFR GFRAA in patients over 70 years has not been determined. Clinical correlation is essential. Performed By: #### L 500.2500, L501.5200 #### [facility] [address] [place], [address] EST GFR - AA 71 mL/min Normal >60 [facility] Comment on above: Order Comment: 157 Result Comment: Afri can [place] Island[place] GFR Calc Performed By: #### L 500.2500, L501.5200 #### [facility] [address] [place], [address] GAP 4 Low 5-15 [facility] Comment on above: Order Comment: 157 Performed By: #### L 500.2500, L501.5200 #### [facility] [address] [place], [address] GFR/1.73 sq M.predicted among non-blacks MDRD (S/P/Bld) [Vol rate/Area] 58 mL/min/{1.73_m2} Low >60 [facility] Comment on above: Order Comment: 157 Result Comment: Non- GFR Calc Performed By: #### L 500.2500, L501.5200 #### [facility] [address] [place], [address] Glucose [Mass/Vol] 120 mg/dL High 74-106 [facility] Comment on above: Order Comment: 157 Result Comment: Fast ing Glucose result from 100 to 125 mg/dL suggests IMPAIRED HOMEOSTASIS per A.D.A. criteria. Performed By: #### L 500.2500, L501.5200 #### [facility] [address] [place], [address] Potassium [Moles/Vol] 3.9 mmol/L Normal 3.5-5.1 [facility] Comment on above: Order Comment: 157 Performed By: #### L 500.2500, L501.5200 #### [facility] [address] [place], [address] Sodium [Moles/Vol] 138 mmol/L Normal 136-145 [facility] Comment on above: Order Comment: 157 Performed By: #### L 500.2500, L501.5200 #### [facility] [address] [place], [address] Urea nitrogen [Mass/Vol] 26 mg/dL High 7-18 [facility] Comment on above: Order Comment: 157 Performed By: #### L 500.2500, L501.5200 #### [facility] [address] [place], [address] Blood urea nitrogen (BUN)/cr eatinine ratioOrdered By: Melissa Reed on 07-25-2024 Urea nitrogen/Creatinine [Mass ratio] 26.7 mg/mg High 10-20 [facility] Carbon dioxide measurementOr dered By: Melissa Reed on 07-25-2024 CO2 [Moles/Vol] 31.0 mmol/L 21.0-32.0 [facility] Chloride measurementOrdered By: Melissa Reed on 07-25-2024 Chloride [Moles/Vol] 103 mmol/L 98-107 [facility] Estimated glomerular filtrat ion rate (GFR) AmericanOrdered By: Melissa Reed on 07-25-2024 Estimated GFR (MDRD) Amer 71 mL/min >60 [facility] Comment on above: GFR Calc Glomerular filtration rate ( GFR) estimationOrdered By: Melissa Reed on 07-25-2024 Estimated GFR (MDRD) Non-Af Amer 58 mL/min Low >60 [facility] Comment on above: Non- GFR Calc Glucose measurementOrdered B y: Melissa Reed on 07-25-2024 Glucose [Mass/Vol] 120 mg/dL High 74-106 [facility] Comment on above: Fasting Glucose resu lt from 100 to 125 mg/dL suggests IMPAIRED HOMEOSTASIS per A.D.A. criteria. Magnesiumon 07-25-2024 Magnesium [Mass/Vol] 2.2 mg/dL Normal 1.6-2.6 [facility] Comment on above: Order Comment: 157 Performed By: #### L 500.2500, L501.5200 #### [facility] [address] [place], [address] Magnesium measurementOrdered By: Melissa Reed on 07-25-2024 Magnesium [Mass/Vol] 2.2 mg/dL 1.6-2.6 [facility] Potassium measurementOrdered By: Melissa Reed on 07-25-2024 Potassium [Moles/Vol] 3.9 mmol/L 3.5-5.1 [facility] Serum anion gap measurementO rdered By: Melissa Reed on 07-25-2024 Anion gap [Moles/Vol] 4 mmol/L Low 5-15 [facility] Serum or plasma calcium danae urement (mass/volume)Ordered By: Melissa Reed on 07-25-2024 Calcium [Mass/Vol] 9.1 mg/dL 8.5-10.1 [facility] Serum or plasma creatinine m easurement (mass/volume)Ordered By: Melissa Reed on 07-25-2024 Creatinine [Mass/Vol] 0.97 mg/dL 0.55-1.02 [facility] Comment on above: The validity of the calculated GFR & GFRAA in patients over 70 years has not been determined. Clinical correlation is essential. Serum or plasma urea nitroge n measurement (mass/volume)Ordered By: Melissa Reed on 07-25-2024 Urea nitrogen [Mass/Vol] 26 mg/dL High 7-18 [facility] Sodium levelOrdered By: Rubin Millskasidiony on 07-25-2024 Sodium [Moles/Vol] 138 mmol/L 136-145 [facility] Basic Metabolic Profile (BMP )on 07-11-2024 BUN/CRE 30.4 RATIO High 10-20 [facility] Comment on above: Order Comment: 157 Performed By: #### L 500.2500, L501.5200 #### [facility] [address] [place], [address] CA,Total 9.0 mg/dL Normal 8.5-10.1 [facility] Comment on above: Order Comment: 157 Performed By: #### L 500.2500, L501.5200 #### [facility] [address] [place], [address] Chloride [Moles/Vol] 103 mmol/L Normal 98-107 [facility] Comment on above: Order Comment: 157 Performed By: #### L 500.2500, L501.5200 #### [facility] [address] [place], [address] CO2 [Moles/Vol] 32.0 mmol/L Normal 21.0-32.0 [facility] Comment on above: Order Comment: 157 Performed By: #### L 500.2500, L501.5200 #### [facility] [address] [place], [address] Creatinine [Mass/Vol] 0.86 mg/dL Normal 0.55-1.02 [facility] Comment on above: Order Comment: 157 Result Comment: The validity of the calculated GFR GFRAA in patients over 70 years has not been determined. Clinical correlation is essential. Performed By: #### L 500.2500, L501.5200 #### [facility] [address] [place], [address] EST GFR - AA 82 mL/min Normal >60 [facility] Comment on above: Order Comment: 157 Result Comment: Afri can [place] GFR Calc Performed By: #### L 500.2500, L501.5200 #### [facility] [address] [place], [address] GAP 5 Normal 5-15 [facility] Comment on above: Order Comment: 157 Performed By: #### L 500.2500, L501.5200 #### [facility] [address] [place], [address] GFR/1.73 sq M.predicted among non-blacks MDRD (S/P/Bld) [Vol rate/Area] 68 mL/min/{1.73_m2} Normal >60 [facility] Comment on above: Order Comment: 157 Result Comment: Non- GFR Calc Performed By: #### L 500.2500, L501.5200 #### [facility] [address] [place], [address] Glucose [Mass/Vol] 109 mg/dL High 74-106 [facility] Comment on above: Order Comment: 157 Result Comment: Fast ing Glucose result from 100 to 125 mg/dL suggests IMPAIRED HOMEOSTASIS per A.D.A. criteria. Performed By: #### L 500.2500, L501.5200 #### [facility] [address] [place], [address] Potassium [Moles/Vol] 4.1 mmol/L Normal 3.5-5.1 [facility] Comment on above: Order Comment: 157 Performed By: #### L 500.2500, L501.5200 #### [facility] [address] [place], [address] Sodium [Moles/Vol] 140 mmol/L Normal 136-145 [facility] Comment on above: Order Comment: 157 Performed By: #### L 500.2500, L501.5200 #### [facility] [address] [place], [address] Urea nitrogen [Mass/Vol] 26 mg/dL High 7-18 [facility] Comment on above: Order Comment: 157 Performed By: #### L 500.2500, L501.5200 #### [facility] [address] [place], [place], [id number] Blood urea nitrogen (BUN)/cr eatinine ratioOrdered By: Melissa Reed on 07-11-2024 Urea nitrogen/Creatinine [Mass ratio] 30.4 mg/mg High 10-20 [facility] Carbon dioxide measurementOr dered By: Melissa Reed on 07-11-2024 CO2 [Moles/Vol] 32.0 mmol/L 21.0-32.0 [facility] Chloride measurementOrdered By: Melissa Reed on 07-11-2024 Chloride [Moles/Vol] 103 mmol/L 98-107 [facility] Estimated glomerular filtrat ion rate (GFR) AmericanOrdered By: Melissa Reed on 07-11-2024 Estimated GFR (MDRD) Amer 82 mL/min >60 [facility] Comment on above: GFR Calc Glomerular filtration rate ( GFR) estimationOrdered By: Melissa Reed on 07-11-2024 Estimated GFR (MDRD) Non-Af Amer 68 mL/min >60 [facility] Comment on above: Non- GFR Calc Glucose measurementOrdered B y: Melissa Reed on 07-11-2024 Glucose [Mass/Vol] 109 mg/dL High 74-106 [facility] Comment on above: Fasting Glucose resu lt from 100 to 125 mg/dL suggests IMPAIRED HOMEOSTASIS per A.D.A. criteria. Magnesiumon 07-11-2024 Magnesium [Mass/Vol] 2.2 mg/dL Normal 1.6-2.6 [facility] Comment on above: Order Comment: 157 Performed By: #### L 500.2500, L501.5200 #### [facility] [address] [place], [place], [id number] Magnesium measurementOrdered By: Melissa Reed on 07-11-2024 Magnesium [Mass/Vol] 2.2 mg/dL 1.6-2.6 [facility] Potassium measurementOrdered By: Melissa Reed on 07-11-2024 Potassium [Moles/Vol] 4.1 mmol/L 3.5-5.1 [facility] Serum anion gap measurementO rdered By: Melissa Reed on 07-11-2024 Anion gap [Moles/Vol] 5 mmol/L 5-15 [facility] Serum or plasma calcium danae urement (mass/volume)Ordered By: Melissa Reed on 07-11-2024 Calcium [Mass/Vol] 9.0 mg/dL 8.5-10.1 [facility] Serum or plasma creatinine m easurement (mass/volume)Ordered By: Melissa Reed on 07-11-2024 Creatinine [Mass/Vol] 0.86 mg/dL 0.55-1.02 [facility] Comment on above: The validity of the calculated GFR & GFRAA in patients over 70 years has not been determined. Clinical correlation is essential. Serum or plasma urea nitroge n measurement (mass/volume)Ordered By: Melissa Reed on 07-11-2024 Urea nitrogen [Mass/Vol] 26 mg/dL High 7-18 [facility] Sodium levelOrdered By: Rubin Reed on 07-11-2024 Sodium [Moles/Vol] 140 mmol/L 136-145 [facility] Basic Metabolic Profile (BMP )on 06-27-2024 BUN/CRE 23.7 RATIO High 10-20 [facility] Comment on above: Order Comment: 157 Performed By: #### L 500.2500, L501.5200 #### [facility] [address] [place], [address] CA,Total 8.7 mg/dL Normal 8.5-10.1 [facility] Comment on above: Order Comment: 157 Performed By: #### L 500.2500, L501.5200 #### [facility] [address] [place], [address] Chloride [Moles/Vol] 105 mmol/L Normal 98-107 [facility] Comment on above: Order Comment: 157 Performed By: #### L 500.2500, L501.5200 #### [facility] [address] [place], [address] CO2 [Moles/Vol] 31.0 mmol/L Normal 21.0-32.0 [facility] Comment on above: Order Comment: 157 Performed By: #### L 500.2500, L501.5200 #### [facility] [address] [place], [address] Creatinine [Mass/Vol] 1.18 mg/dL High 0.55-1.02 [facility] Comment on above: Order Comment: 157 Result Comment: The validity of the calculated GFR GFRAA in patients over 70 years has not been determined. Clinical correlation is essential. Performed By: #### L 500.2500, L501.5200 #### [facility] [address] [place], [address] EST GFR - AA 57 mL/min Low >60 [facility] Comment on above: Order Comment: 157 Result Comment: Afri can [place] GFR Calc Performed By: #### L 500.2500, L501.5200 #### [facility] [address] [place], [address] GAP 4 Low 5-15 [facility] Comment on above: Order Comment: 157 Performed By: #### L 500.2500, L501.5200 #### [facility] [address] [place], [address] GFR/1.73 sq M.predicted among non-blacks MDRD (S/P/Bld) [Vol rate/Area] 47 mL/min/{1.73_m2} Low >60 [facility] Comment on above: Order Comment: 157 Result Comment: Non- GFR Calc Performed By: #### L 500.2500, L501.5200 #### [facility] [address] [place], [address] Glucose [Mass/Vol] 85 mg/dL Normal 74-106 [facility] Comment on above: Order Comment: 157 Performed By: #### L 500.2500, L501.5200 #### [facility] [address] [place], [address] Potassium [Moles/Vol] 3.8 mmol/L Normal 3.5-5.1 [facility] Comment on above: Order Comment: 157 Performed By: #### L 500.2500, L501.5200 #### [facility] [address] [place], [address] Sodium [Moles/Vol] 140 mmol/L Normal 136-145 [facility] Comment on above: Order Comment: 157 Performed By: #### L 500.2500, L501.5200 #### [facility] [address] [place], [address] Urea nitrogen [Mass/Vol] 28 mg/dL High 7-18 [facility] Comment on above: Order Comment: 157 Performed By: #### L 500.2500, L501.5200 #### [facility] [address] [place], [address] Blood urea nitrogen (BUN)/cr eatinine ratioOrdered By: Melissa Reed on 06-27-2024 Urea nitrogen/Creatinine [Mass ratio] 23.7 mg/mg High 10-20 [facility] Carbon dioxide measurementOr dered By: Melissa Reed on 06-27-2024 CO2 [Moles/Vol] 31.0 mmol/L 21.0-32.0 [facility] Chloride measurementOrdered By: Melissa Reed on 06-27-2024 Chloride [Moles/Vol] 105 mmol/L 98-107 [facility] Estimated glomerular filtrat ion rate (GFR) AmericanOrdered By: Melissa Reed on 06-27-2024 Estimated GFR (MDRD) Amer 57 mL/min Low >60 [facility] Comment on above: GFR Calc Glomerular filtration rate ( GFR) estimationOrdered By: Melissa Reed on 06-27-2024 Estimated GFR (MDRD) Non-Af Amer 47 mL/min Low >60 [facility] Comment on above: Non- GFR Calc Glucose measurementOrdered B y: Melissa Reed on 06-27-2024 Glucose [Mass/Vol] 85 mg/dL 74-106 [facility] Magnesiumon 06-27-2024 Magnesium [Mass/Vol] 2.2 mg/dL Normal 1.6-2.6 [facility] Comment on above: Order Comment: 157 Performed By: #### L 500.2500, L501.5200 #### [facility] [address] [place], [address] Magnesium measurementOrdered By: Melissa Reed on 06-27-2024 Magnesium [Mass/Vol] 2.2 mg/dL 1.6-2.6 [facility] Potassium measurementOrdered By: Melissa Reed on 06-27-2024 Potassium [Moles/Vol] 3.8 mmol/L 3.5-5.1 [facility] Serum anion gap measurementO rdered By: Melissa Reed on 06-27-2024 Anion gap [Moles/Vol] 4 mmol/L Low 5-15 [facility] Serum or plasma calcium danae urement (mass/volume)Ordered By: Melissa Reed on 06-27-2024 Calcium [Mass/Vol] 8.7 mg/dL 8.5-10.1 [facility] Serum or plasma creatinine m easurement (mass/volume)Ordered By: Melissa Reed on 06-27-2024 Creatinine [Mass/Vol] 1.18 mg/dL High 0.55-1.02 [facility] Comment on above: The validity of the calculated GFR & GFRAA in patients over 70 years has not been determined. Clinical correlation is essential. Serum or plasma urea nitroge n measurement (mass/volume)Ordered By: Melissa Reed on 06-27-2024 Urea nitrogen [Mass/Vol] 28 mg/dL High 7-18 [facility] Sodium levelOrdered By: Rubin bethany Millsnaz on 06-27-2024 Sodium [Moles/Vol] 140 mmol/L 136-145 [facility] Basic Metabolic Profile (BMP )on 06-13-2024 BUN/CRE 32.6 RATIO High 10-20 [facility] Comment on above: Performed By: #### L 501.5200, L500.2500 #### [facility] [address] [place], [address] CA,Total 8.7 mg/dL Normal 8.5-10.1 [facility] Comment on above: Performed By: #### L 501.5200, L500.2500 #### [facility] [address] [place], [address] Chloride [Moles/Vol] 105 mmol/L Normal 98-107 [facility] Comment on above: Performed By: #### L 501.5200, L500.2500 #### [facility] [address] [place], [address] CO2 [Moles/Vol] 28.0 mmol/L Normal 21.0-32.0 [facility] Comment on above: Performed By: #### L 501.5200, L500.2500 #### [facility] [address] [place], [address] Creatinine [Mass/Vol] 0.98 mg/dL Normal 0.55-1.02 [facility] Comment on above: Result Comment: The validity of the calculated GFR GFRAA in patients over 70 years has not been determined. Clinical correlation is essential. Performed By: #### L 501.5200, L500.2500 #### [facility] [address] [place], [address] EST GFR - AA 70 mL/min Normal >60 [facility] Comment on above: Result Comment: Afri can [place] GFR Calc Performed By: #### L 501.5200, L500.2500 #### [facility] [address] [place], [address] GAP 5 Normal 5-15 [facility] Comment on above: Performed By: #### L 501.5200, L500.2500 #### [facility] [address] [place], [address] GFR/1.73 sq M.predicted among non-blacks MDRD (S/P/Bld) [Vol rate/Area] 58 mL/min/{1.73_m2} Low >60 [facility] Comment on above: Result Comment: Non- GFR Calc Performed By: #### L 501.5200, L500.2500 #### [facility] [address] [place], [address] Glucose [Mass/Vol] 161 mg/dL High 74-106 [facility] Comment on above: Result Comment: Fast ing Glucose result greater than or equal to 126 mg/dL suggests DIABETES MELLITUS per A.D.A. criteria. Performed By: #### L 501.5200, L500.2500 #### [facility] [address] [place], [address] Potassium [Moles/Vol] 3.8 mmol/L Normal 3.5-5.1 [facility] Comment on above: Result Comment: Slig ht Hemolysis, Result may be falsely increased. Performed By: #### L 501.5200, L500.2500 #### [facility] [address] [place], [address] Sodium [Moles/Vol] 138 mmol/L Normal 136-145 [facility] Comment on above: Performed By: #### L 501.5200, L500.2500 #### [facility] [address] [place], [address] Urea nitrogen [Mass/Vol] 32 mg/dL High 7-18 [facility] Comment on above: Performed By: #### L 501.5200, L500.2500 #### [facility] [address] [place], [place], [id number] Blood urea nitrogen (BUN)/cr eatinine ratioOrdered By: Melissa Reed on 06-13-2024 Urea nitrogen/Creatinine [Mass ratio] 32.6 mg/mg High 10-20 [facility] Carbon dioxide measurementOr dered By: Melissa Reed on 06-13-2024 CO2 [Moles/Vol] 28.0 mmol/L 21.0-32.0 [facility] Chloride measurementOrdered By: Melissa Reed on 06-13-2024 Chloride [Moles/Vol] 105 mmol/L 98-107 [facility] Estimated glomerular filtrat ion rate (GFR) AmericanOrdered By: Melissa Reed on 06-13-2024 Estimated GFR (MDRD) Amer 70 mL/min >60 [facility] Comment on above: GFR Calc Glomerular filtration rate ( GFR) estimationOrdered By: Melissa Reed on 06-13-2024 Estimated GFR (MDRD) Non-Af Amer 58 mL/min Low >60 [facility] Comment on above: Non- GFR Calc Glucose measurementOrdered B y: Melissa Reed on 06-13-2024 Glucose [Mass/Vol] 161 mg/dL High 74-106 [facility] Comment on above: Fasting Glucose resu lt greater than or equal to 126 mg/dL suggests DIABETES MELLITUS per A.D.A. criteria. Magnesiumon 06-13-2024 Magnesium [Mass/Vol] 2.2 mg/dL Normal 1.6-2.6 [facility] Comment on above: Result Comment: Slig ht Hemolysis, Result may be falsely increased. Performed By: #### M 100.2200, L400.0001 #### [facility] [address] [place], [place], [id number] Magnesium measurementOrdered By: Melissa Reed on 06-13-2024 Magnesium [Mass/Vol] 2.2 mg/dL 1.6-2.6 [facility] Comment on above: Slight Hemolysis, Re sult may be falsely increased. Potassium measurementOrdered By: Melissa Reed on 06-13-2024 Potassium [Moles/Vol] 3.8 mmol/L 3.5-5.1 [facility] Comment on above: Slight Hemolysis, Re sult may be falsely increased. Serum anion gap measurementO rdered By: Melissa Reed on 06-13-2024 Anion gap [Moles/Vol] 5 mmol/L 5-15 [facility] Serum or plasma calcium danae urement (mass/volume)Ordered By: Melissa Reed on 06-13-2024 Calcium [Mass/Vol] 8.7 mg/dL 8.5-10.1 [facility] Serum or plasma creatinine m easurement (mass/volume)Ordered By: Melissa Reed on 06-13-2024 Creatinine [Mass/Vol] 0.98 mg/dL 0.55-1.02 [facility] Comment on above: The validity of the calculated GFR & GFRAA in patients over 70 years has not been determined. Clinical correlation is essential. Serum or plasma urea nitroge n measurement (mass/volume)Ordered By: Melissa Reed on 06-13-2024 Urea nitrogen [Mass/Vol] 32 mg/dL High 7-18 [facility] Sodium levelOrdered By: Rubin Reed on 06-13-2024 Sodium [Moles/Vol] 138 mmol/L 136-145 [facility] Basic Metabolic Profile (BMP )on 05-29-2024 BUN/CRE 22.1 RATIO High 10-20 [facility] Comment on above: Order Comment: CLEAN CATCH Performed By: #### M 100.2200, L400.0001 #### [facility] [address] [place], [address] CA,Total 8.9 mg/dL Normal 8.5-10.1 [facility] Comment on above: Order Comment: CLEAN CATCH Performed By: #### M 100.2200, L400.0001 #### [facility] [address] [place], [address] Chloride [Moles/Vol] 106 mmol/L Normal 98-107 [facility] Comment on above: Order Comment: CLEAN CATCH Performed By: #### M 100.2200, L400.0001 #### [facility] [address] [place], [address] CO2 [Moles/Vol] 32.0 mmol/L Normal 21.0-32.0 [facility] Comment on above: Order Comment: CLEAN CATCH Performed By: #### M 100.2200, L400.0001 #### [facility] [address] [place], [address] Creatinine [Mass/Vol] 1.31 mg/dL High 0.55-1.02 [facility] Comment on above: Order Comment: CLEAN CATCH Result Comment: The validity of the calculated GFR GFRAA in patients over 70 years has not been determined. Clinical correlation is essential. Performed By: #### M 100.0, L400.0001 #### [facility] [address] [place], [address] EST GFR - AA 50 mL/min Low >60 [facility] Comment on above: Order Comment: CLEAN CATCH Result Comment: Afri can [place] GFR Calc Performed By: #### M 100.0, L400.0001 #### [facility] [address] [place], [address] GAP 5 Normal 5-15 [facility] Comment on above: Order Comment: CLEAN CATCH Performed By: #### M 100.2200, [id number] #### [facility] [address] [place], [address] GFR/1.73 sq M.predicted among non-blacks MDRD (S/P/Bld) [Vol rate/Area] 41 mL/min/{1.73_m2} Low >60 [facility] Comment on above: Order Comment: CLEAN CATCH Result Comment: Non- GFR Calc Performed By: #### M 100.2200, L400.0001 #### [facility] [address] [place], [address] Glucose [Mass/Vol] 116 mg/dL High 74-106 [facility] Comment on above: Order Comment: CLEAN CATCH Result Comment: Fast ing Glucose result from 100 to 125 mg/dL suggests IMPAIRED HOMEOSTASIS per A.D.A. criteria. Performed By: #### M 100.2200, [id number] #### [facility] [address] [place], [address] Potassium [Moles/Vol] 3.6 mmol/L Normal 3.5-5.1 [facility] Comment on above: Order Comment: CLEAN CATCH Performed By: #### M 100.2200, L400.0001 #### [facility] [address] [place], [address] Sodium [Moles/Vol] 142 mmol/L Normal 136-145 [facility] Comment on above: Order Comment: CLEAN CATCH Performed By: #### M 100.2200, L400.0001 #### [facility] [address] [place], [address] Urea nitrogen [Mass/Vol] 29 mg/dL High 7-18 [facility] Comment on above: Order Comment: CLEAN CATCH Performed By: #### M 100.2200, [id number] #### [facility] [address] [place], [address] Blood urea nitrogen (BUN)/cr eatinine ratioOrdered By: Melissa Reed on 05-29-2024 Urea nitrogen/Creatinine [Mass ratio] 22.1 mg/mg High 10-20 [facility] Carbon dioxide measurementOr dered By: Melissa Reed on 05-29-2024 CO2 [Moles/Vol] 32.0 mmol/L 21.0-32.0 [facility] Chloride measurementOrdered By: Melissa Reed on 05-29-2024 Chloride [Moles/Vol] 106 mmol/L 98-107 [facility] Estimated glomerular filtrat ion rate (GFR) AmericanOrdered By: Melissa Reed on 05-29-2024 Estimated GFR (MDRD) Amer 50 mL/min Low >60 [facility] Comment on above: GFR Calc Glomerular filtration rate ( GFR) estimationOrdered By: Melissa Reed on 05-29-2024 Estimated GFR (MDRD) Non-Af Amer 41 mL/min Low >60 [facility] Comment on above: Non- GFR Calc Glucose measurementOrdered B y: Melissa Reed on 05-29-2024 Glucose [Mass/Vol] 116 mg/dL High 74-106 [facility] Comment on above: Fasting Glucose resu lt from 100 to 125 mg/dL suggests IMPAIRED HOMEOSTASIS per A.D.A. criteria. Magnesiumon 05-29-2024 Magnesium [Mass/Vol] 2.0 mg/dL Normal 1.6-2.6 [facility] Comment on above: Order Comment: CLEAN CATCH Performed By: #### M 100.2200, L400.0001 #### [facility] [address] [place] [address]. [place], [address] Magnesium measurementOrdered By: Melissa Reed on 05-29-2024 Magnesium [Mass/Vol] 2.0 mg/dL 1.6-2.6 [facility] Potassium measurementOrdered By: Melissa Reed on 05-29-2024 Potassium [Moles/Vol] 3.6 mmol/L 3.5-5.1 [facility] Serum anion gap measurementO rdered By: Melissa Reed on 05-29-2024 Anion gap [Moles/Vol] 5 mmol/L 5-15 [facility] Serum or plasma calcium daane urement (mass/volume)Ordered By: Melissa Reed on 05-29-2024 Calcium [Mass/Vol] 8.9 mg/dL 8.5-10.1 [facility] Serum or plasma creatinine m easurement (mass/volume)Ordered By: Melissa Reed on 05-29-2024 Creatinine [Mass/Vol] 1.31 mg/dL High 0.55-1.02 [facility] Comment on above: The validity of the calculated GFR & GFRAA in patients over 70 years has not been determined. Clinical correlation is essential. Serum or plasma urea nitroge n measurement (mass/volume)Ordered By: Melissa Reed on 05-29-2024 Urea nitrogen [Mass/Vol] 29 mg/dL High 7-18 [facility] Sodium levelOrdered By: Rubin Reed on 05-29-2024 Sodium [Moles/Vol] 142 mmol/L 136-145 [facility] Basic Metabolic Profile (BMP )on 05-15-2024 BUN/CRE 31.1 RATIO High 10-20 [facility] Comment on above: Order Comment: 157 Performed By: #### L 501.5200, L500.2500 #### [facility] [address] [place], [address] CA,Total 8.7 mg/dL Normal 8.5-10.1 [facility] Comment on above: Order Comment: 157 Performed By: #### L 501.5200, L500.2500 #### [facility] [address] [place], [address] Chloride [Moles/Vol] 105 mmol/L Normal 98-107 [facility] Comment on above: Order Comment: 157 Performed By: #### L 501.5200, L500.2500 #### [facility] [address] [place], [address] CO2 [Moles/Vol] 30.0 mmol/L Normal 21.0-32.0 [facility] Comment on above: Order Comment: 157 Performed By: #### L 501.5200, L500.2500 #### [facility] [address] [place], [address] Creatinine [Mass/Vol] 1.06 mg/dL High 0.55-1.02 [facility] Comment on above: Order Comment: 157 Result Comment: The validity of the calculated GFR GFRAA in patients over 70 years has not been determined. Clinical correlation is essential. Performed By: #### L 501.5200, L500.2500 #### [facility] [address] [place], [address] EST GFR - AA 64 mL/min Normal >60 [facility] Comment on above: Order Comment: 157 Result Comment: Afri can [place] GFR Calc Performed By: #### L 501.5200, L500.2500 #### [facility] [address] [place], [address] GAP 5 Normal 5-15 [facility] Comment on above: Order Comment: 157 Performed By: #### L 501.5200, L500.2500 #### [facility] [address] [place], [address] GFR/1.73 sq M.predicted among non-blacks MDRD (S/P/Bld) [Vol rate/Area] 53 mL/min/{1.73_m2} Low >60 [facility] Comment on above: Order Comment: 157 Result Comment: Non- GFR Calc Performed By: #### L 501.5200, L500.2500 #### [facility] [address] [place], [address] Glucose [Mass/Vol] 119 mg/dL High 74-106 [facility] Comment on above: Order Comment: 157 Result Comment: Fast ing Glucose result from 100 to 125 mg/dL suggests IMPAIRED HOMEOSTASIS per A.D.A. criteria. Performed By: #### L 501.5200, L500.2500 #### [facility] [address] [place], [address] Potassium [Moles/Vol] 3.6 mmol/L Normal 3.5-5.1 [facility] Comment on above: Order Comment: 157 Performed By: #### L 501.5200, L500.2500 #### [facility] [address] [place], [address] Sodium [Moles/Vol] 140 mmol/L Normal 136-145 [facility] Comment on above: Order Comment: 157 Performed By: #### L 501.5200, L500.2500 #### [facility] [address] [place], [address] Urea nitrogen [Mass/Vol] 33 mg/dL High 7-18 [facility] Comment on above: Order Comment: 157 Performed By: #### L 501.5200, L500.2500 #### [facility] [address] [place], [address] Magnesiumon 05-15-2024 Magnesium [Mass/Vol] 2.1 mg/dL Normal 1.6-2.6 [facility] Comment on above: Order Comment: 157 Performed By: #### L 501.5200, L500.2500 #### [facility] [address] [place], [address] Basic Metabolic Profile (BMP )on 05-01-2024 BUN/CRE 21.4 RATIO High 10-20 [facility] Comment on above: Order Comment: 157 Performed By: #### M 100.2200, L400.0001 #### [facility] [address] [place], [address] CA,Total 9.2 mg/dL Normal 8.5-10.1 [facility] Comment on above: Order Comment: 157 Performed By: #### M 100.2200, L400.0001 #### [facility] [address] [place], [address] Chloride [Moles/Vol] 106 mmol/L Normal 98-107 [facility] Comment on above: Order Comment: 157 Performed By: #### M 100.2200, L400.0001 #### [facility] [address] [place], [address] CO2 [Moles/Vol] 27.0 mmol/L Normal 21.0-32.0 [facility] Comment on above: Order Comment: 157 Performed By: #### M 100.2200, L400.0001 #### [facility] [address] [place], [address] Creatinine [Mass/Vol] 1.26 mg/dL High 0.55-1.02 [facility] Comment on above: Order Comment: 157 Result Comment: The validity of the calculated GFR GFRAA in patients over 70 years has not been determined. Clinical correlation is essential. Performed By: #### M 100.2200, L400.0001 #### [facility] [address] [place], [address] EST GFR - AA 53 mL/min Low >60 [facility] Comment on above: Order Comment: 157 Result Comment: Afri can [place] GFR Calc Performed By: #### M 100.2200, L400.0001 #### [facility] [address] [place], [address] GAP 7 Normal 5-15 [facility] Comment on above: Order Comment: 157 Performed By: #### M 100.2200, L400.0001 #### [facility] [address] [place], [address] GFR/1.73 sq M.predicted among non-blacks MDRD (S/P/Bld) [Vol rate/Area] 43 mL/min/{1.73_m2} Low >60 [facility] Comment on above: Order Comment: 157 Result Comment: Non- GFR Calc Performed By: #### M 100.2200, L400.0001 #### [facility] [address] [place], [address] Glucose [Mass/Vol] 126 mg/dL High 74-106 [facility] Comment on above: Order Comment: 157 Result Comment: Fast ing Glucose result greater than or equal to 126 mg/dL suggests DIABETES MELLITUS per A.D.A. criteria. Performed By: #### M 100.2200, L400.0001 #### [facility] [address] [place], [address] Potassium [Moles/Vol] 4.3 mmol/L Normal 3.5-5.1 [facility] Comment on above: Order Comment: 157 Performed By: #### M 100.2200, L400.0001 #### [facility] [address] [place], [address] Sodium [Moles/Vol] 140 mmol/L Normal 136-145 [facility] Comment on above: Order Comment: 157 Performed By: #### M 100.2200, L400.0001 #### [facility] [address] [place], [address] Urea nitrogen [Mass/Vol] 27 mg/dL High 01-03 [facility] Comment on above: Order Comment: 157 Performed By: #### M 100.2200, L400.0001 #### [facility] [address] [place], [address] Magnesiumon 05-01-2024 Magnesium [Mass/Vol] 2.1 mg/dL Normal 1.6-2.6 [facility] Comment on above: Order Comment: 157 Performed By: #### M 100.2200, L400.0001 #### [facility] [address] [place], [address] Basic Metabolic Profile (BMP )on 04-17-2024 BUN/CRE 20.4 RATIO High 04-07 [facility] Comment on above: Order Comment: CLEAN CATCH Performed By: #### M 100.2200, L400.0001 #### [facility] [address] [place], [address] CA,Total 8.6 mg/dL Normal 8.5-10.1 [facility] Comment on above: Order Comment: CLEAN CATCH Performed By: #### M 100.2200, L400.0001 #### [facility] [address] [place], [address] Chloride [Moles/Vol] 105 mmol/L Normal 98-107 [facility] Comment on above: Order Comment: CLEAN CATCH Performed By: #### M 100.2200, L400.0001 #### [facility] [address] [place], [address] CO2 [Moles/Vol] 31.0 mmol/L Normal 21.0-32.0 [facility] Comment on above: Order Comment: CLEAN CATCH Performed By: #### M 100.2200, L400.0001 #### [facility] [address] [place], [address] Creatinine [Mass/Vol] 1.03 mg/dL High 0.55-1.02 [facility] Comment on above: Order Comment: CLEAN CATCH Result Comment: The validity of the calculated GFR GFRAA in patients over 70 years has not been determined. Clinical correlation is essential. Performed By: #### M 100.2200, [id number] #### [facility] [address] [place], [address] EST GFR - AA 66 mL/min Normal >60 [facility] Comment on above: Order Comment: CLEAN CATCH Result Comment: Afri can [place] GFR Calc Performed By: #### M 100.2200, L400.0001 #### [facility] [address] [place], [address] GAP 3 Low 5-15 [facility] Comment on above: Order Comment: CLEAN CATCH Performed By: #### M 100.2200, L400.0001 #### [facility] [address] [place], [address] GFR/1.73 sq M.predicted among non-blacks MDRD (S/P/Bld) [Vol rate/Area] 55 mL/min/{1.73_m2} Low >60 [facility] Comment on above: Order Comment: CLEAN CATCH Result Comment: Non- GFR Calc Performed By: #### M 100.2200, L400.0001 #### [facility] [address] [place], [address] Glucose [Mass/Vol] 172 mg/dL High 74-106 [facility] Comment on above: Order Comment: CLEAN CATCH Result Comment: Fast ing Glucose result greater than or equal to 126 mg/dL suggests DIABETES MELLITUS per A.D.A. criteria. Performed By: #### M 100.2200, L400.0001 #### [facility] [address] [place], [address] Potassium [Moles/Vol] 3.6 mmol/L Normal 3.5-5.1 [facility] Comment on above: Order Comment: CLEAN CATCH Performed By: #### M 100.2200, L400.0001 #### [facility] [address] [place], [address] Sodium [Moles/Vol] 140 mmol/L Normal 136-145 [facility] Comment on above: Order Comment: CLEAN CATCH Performed By: #### M 100.2200, L400.0001 #### [facility] [address] [place], [address] Urea nitrogen [Mass/Vol] 21 mg/dL High 7-18 [facility] Comment on above: Order Comment: CLEAN CATCH Performed By: #### M 100.2200, L400.0001 #### [facility] [address] [place], [address] Magnesiumon 04-17-2024 Magnesium [Mass/Vol] 2.3 mg/dL Normal 1.6-2.6 [facility] Comment on above: Performed By: #### L 500.2500, L501.5200 #### [facility] [address] [place], [address] L3300.0940on 04-06-2024 VIT D,25 HYDROX Normal [facility] Comment on above: Order Comment: 157 Result Comment: TEST RESULTS LIMITS Vitamin D, 25-Hydroxy 32.0 ng/mL 30.0-100.0 Vitamin D deficiency has been defined by the [place] [employer] and an Endocrine Society practice guideline as a level of serum 25-OH vitamin D less than 20 ng/mL (1,2). The Endocrine Society went on to further define vitamin D insufficiency as a level between 21 and 29 ng/mL (2). 1. IOM ([place] [employer]). 2010. Dietary reference intakes for calcium and D. [place]: The National Academies Press. 2. Josias MF, Eddie GAUTAM, Patrick RODRIGUEZ, et al. Evaluation, treatment, and prevention of vitamin D deficiency: an Endocrine Society clinical practice guideline. JCEM. 2010; 96(7):1911-30. TESTING PERFORMED AT [facility]. ORIGINAL REPORT ON FILE IN LAB CONTAINS ADDITIONAL TEST SITE INFORMATION. Performed By: #### L 501.5200, L500.2500 #### [facility] [address] [place], [place], [address] Basic Metabolic Profile (BMP )on 04-04-2024 BUN/CRE 23.3 RATIO High 04-07 [facility] Comment on above: Order Comment: CLEAN CATCH Performed By: #### M 100.2200, L400.0001 #### [facility] [address] [place], [address] CA,Total 9.4 mg/dL Normal 8.5-10.1 [facility] Comment on above: Order Comment: CLEAN CATCH Performed By: #### M 100.2200, L400.0001 #### [facility] [address] [place], [address] Chloride [Moles/Vol] 103 mmol/L Normal 98-107 [facility] Comment on above: Order Comment: CLEAN CATCH Performed By: #### M 100.2200, L400.0001 #### [facility] [address] [place], [address] CO2 [Moles/Vol] 33.0 mmol/L High 21.0-32.0 [facility] Comment on above: Order Comment: CLEAN CATCH Performed By: #### M 100.2200, L400.0001 #### [facility] [address] [place], [address] Creatinine [Mass/Vol] 1.20 mg/dL High 0.55-1.02 [facility] Comment on above: Order Comment: CLEAN CATCH Result Comment: The validity of the calculated GFR GFRAA in patients over 70 years has not been determined. Clinical correlation is essential. Performed By: #### M 100.0, L400.0001 #### [facility] [address] [place], [address] EST GFR - AA 56 mL/min Low >60 [facility] Comment on above: Order Comment: CLEAN CATCH Result Comment: Afri can [place] GFR Calc Performed By: #### M 100.0, L400.0001 #### [facility] [address] [place], [address] GAP 4 Low 5-15 [facility] Comment on above: Order Comment: CLEAN CATCH Performed By: #### M 100.2200, [id number] #### [facility] [address] [place], [address] GFR/1.73 sq M.predicted among non-blacks MDRD (S/P/Bld) [Vol rate/Area] 46 mL/min/{1.73_m2} Low >60 [facility] Comment on above: Order Comment: CLEAN CATCH Result Comment: Non- GFR Calc Performed By: #### M 100.2200, [id number] #### [facility] [address] [place], [address] Glucose [Mass/Vol] 120 mg/dL High 74-106 [facility] Comment on above: Order Comment: CLEAN CATCH Result Comment: Fast ing Glucose result from 100 to 125 mg/dL suggests IMPAIRED HOMEOSTASIS per A.D.A. criteria. Performed By: #### M 100.2200, [id number] #### [facility] [address] [place], [address] Potassium [Moles/Vol] 4.1 mmol/L Normal 3.5-5.1 [facility] Comment on above: Order Comment: CLEAN CATCH Performed By: #### M 100.2200, L400.0001 #### [facility] [address] [place], [address] Sodium [Moles/Vol] 140 mmol/L Normal 136-145 [facility] Comment on above: Order Comment: CLEAN CATCH Performed By: #### M 100.2200, [id number] #### [facility] [address] [place], [address] Urea nitrogen [Mass/Vol] 28 mg/dL High 7-18 [facility] Comment on above: Order Comment: CLEAN CATCH Performed By: #### M 100.2200, [id number] #### [facility] [address] [place], [address] Magnesiumon 04-04-2024 Magnesium [Mass/Vol] 2.1 mg/dL Normal 1.6-2.6 [facility] Comment on above: Order Comment: CLEAN CATCH Performed By: #### M 100.2200, [id number] #### [facility] [address] [place], [address] Basic Metabolic Profile (BMP )on 04-03-2024 BUN Normal -18 [facility] Comment on above: Order Comment: CLEAN CATCH Result Comment: UTO TOLD NURSE Performed By: #### M 100.2200, [id number] #### [facility] [address] [place], [address] BUN/CRE Normal 10-20 [facility] Comment on above: Order Comment: CLEAN CATCH Result Comment: UTO TOLD NURSE Performed By: #### M 100.2200, L400.0001 #### [facility] [address] [place], [address] CA,Total Normal 8.5-10.1 [facility] Comment on above: Order Comment: CLEAN CATCH Result Comment: UTO TOLD NURSE Performed By: #### M 100.2200, L400.0001 #### [facility] [address] [place], [address] CL Normal 98-107 [facility] Comment on above: Order Comment: CLEAN CATCH Result Comment: UTO TOLD NURSE Performed By: #### M 100.2200, L400.0001 #### [facility] [address] [place], [address] CO2 Normal 21.0-32.0 [facility] Comment on above: Order Comment: CLEAN CATCH Result Comment: UTO TOLD NURSE Performed By: #### M 100.2200, L400.0001 #### [facility] [address] [place], [address] CREAT,SERUM Normal 0.55-1.02 [facility] Comment on above: Order Comment: CLEAN CATCH Result Comment: UTO TOLD NURSE Performed By: #### M 100.2200, L400.0001 #### [facility] [address] [place], [address] EST GFR Normal >60 [facility] Comment on above: Order Comment: CLEAN CATCH Result Comment: UTO TOLD NURSE Performed By: #### M 100.2200, [id number] #### [facility] [address] [place], [address] EST GFR - AA Normal >60 [facility] Comment on above: Order Comment: CLEAN CATCH Result Comment: UTO TOLD NURSE Performed By: #### M 100.2200, [id number] #### [facility] [address] [place], [address] GAP Normal 5-15 [facility] Comment on above: Order Comment: CLEAN CATCH Result Comment: UTO TOLD NURSE Performed By: #### M 100.2200, L400.0001 #### [facility] [address] [place], [address] GLU Normal 74-106 [facility] Comment on above: Order Comment: CLEAN CATCH Result Comment: UTO TOLD NURSE Performed By: #### M 100.2200, [id number] #### [facility] [address] [place], [address] Potassium Normal 3.5-5.1 [facility] Comment on above: Order Comment: CLEAN CATCH Result Comment: UTO TOLD NURSE Performed By: #### M 100.2200, L400.0001 #### [facility] [address] [place], [address] Basic Metabolic Profile (BMP) Normal 136-145 [facility] Comment on above: Order Comment: CLEAN CATCH Result Comment: UTO TOLD NURSE Performed By: #### M 100.2200, [id number] #### [facility] [address] [place], [address] Hemoglobin A1con 04-01-2024 HbA1c (Bld) [Mass fraction] 6.2 % High 3.8-5.6 [facility] Comment on above: Order Comment: 157 Result Comment: Norm al < 5.7 % Prediabetic 5.7 - 6.4 % Diabetic >or= 6.5 % Please note range changes. Performed By: #### L 501.5200, L500.2500 #### [facility] [address] [place], [address] Thyroid Stim Hormone (TSH)on 04-01-2024 TSH 2.980 uIU/mL Normal 0.358-3.740 [facility] Comment on above: Order Comment: 157 Performed By: #### L 501.5200, L500.2500 #### [facility] [address] [place], [address] Basic Metabolic Profile (BMP )on 03-20-2024 BUN/CRE 20.4 RATIO High 04-07 [facility] Comment on above: Order Comment: CLEAN CATCH Performed By: #### M 100.2200, L400.0001 #### [facility] Laboratory [address] [place], [address] CA,Total 8.8 mg/dL Normal 8.5-10.1 [facility] Comment on above: Order Comment: CLEAN CATCH Performed By: #### M 100.2200, [id number] #### [facility] Laboratory [address] [place], [address] Chloride [Moles/Vol] 104 mmol/L Normal 98-107 [facility] Comment on above: Order Comment: CLEAN CATCH Performed By: #### M 100.2200, [id number] #### [facility] Laboratory [address] [place], [address] CO2 [Moles/Vol] 27.0 mmol/L Normal 21.0-32.0 [facility] Comment on above: Order Comment: CLEAN CATCH Performed By: #### M 100.2200, [id number] #### [facility] Laboratory [address] [place], [address] Creatinine [Mass/Vol] 0.98 mg/dL Normal 0.55-1.02 [facility] Comment on above: Order Comment: CLEAN CATCH Result Comment: The validity of the calculated GFR GFRAA in patients over 70 years has not been determined. Clinical correlation is essential. Performed By: #### M 100.2200, [id number] #### [facility] Laboratory [address] [place], [address] EST GFR - AA 70 mL/min Normal >60 [facility] Comment on above: Order Comment: CLEAN CATCH Result Comment: Afri can [place] Island[place] GFR Calc Performed By: #### M 100.2200, [id number] #### [facility] Laboratory [address] [place], [address] GAP 4 Low 5-15 [facility] Comment on above: Order Comment: CLEAN CATCH Performed By: #### M 100.2200, [id number] #### [facility] Laboratory [address] [place], [address] GFR/1.73 sq M.predicted among non-blacks MDRD (S/P/Bld) [Vol rate/Area] 58 mL/min/{1.73_m2} Low >60 [facility] Comment on above: Order Comment: CLEAN CATCH Result Comment: Non- GFR Calc Performed By: #### M 100.2200, [id number] #### [facility] Laboratory [address] [place], [address] Glucose [Mass/Vol] 102 mg/dL Normal 74-106 [facility] Comment on above: Order Comment: CLEAN CATCH Result Comment: Fast ing Glucose result from 100 to 125 mg/dL suggests IMPAIRED HOMEOSTASIS per A.D.A. criteria. Performed By: #### M 100.2200, [id number] #### [facility] Laboratory [address] [place], [address] Potassium [Moles/Vol] 4.2 mmol/L Normal 3.5-5.1 [facility] Comment on above: Order Comment: CLEAN CATCH Result Comment: Mode rate Hemolysis, Result may be falsely increased. Performed By: #### M 100.2200, [id number] #### [facility] Laboratory [address] [place], [address] Sodium [Moles/Vol] 135 mmol/L Low 136-145 [facility] Comment on above: Order Comment: CLEAN CATCH Performed By: #### M 100.2200, [id number] #### [facility] Laboratory [address] [place], [address] Urea nitrogen [Mass/Vol] 20 mg/dL High 7-18 [facility] Comment on above: Order Comment: CLEAN CATCH Performed By: #### M 100.2200, [id number] #### [facility] Laboratory [address] [place], [address] Magnesiumon 03-20-2024 Magnesium [Mass/Vol] 2.2 mg/dL Normal 1.6-2.6 [facility] Comment on above: Order Comment: CLEAN CATCH Result Comment: Mode rate Hemolysis, Result may be falsely increased. Performed By: #### M 100.2200, [id number] #### [facility] Laboratory [address] [place], [address] 36on 02-05-2024 36 Okay, thank you appreciate her letting us know [facility] 36 We had returned mail on patient---I called her to get her new address. She stated that she is in assisted living at [facility] and will not be a patient at our office. She also wanted Dr. Lopez to know that she appreciates everything that he has done for her over the years. [facility] Progress Noteon 01-03-2024 Progress Note error [facility] Progress Noteon 12-29-2023 Progress Note Please schedule AWV. Normal S [facility] Progress Note Called patient---moustapha ne number is not working--sent letter by mail. [facility] 36on 10-27-2023 36 Spoke with jaylon Pascual it was a mistake and he did not need anything for the patient. [facility] 36on 10-26-2023 36 As far as I know she still considers us her primary care however she misses a lot of appointments and cancels at other times. [facility] 36 Name of caller: Ankur Valdivia Contact phone number: [phone] Relationship to Patient: [facility] Provider: Dr Lopez Practice: [facility] Chief Complaint/Reason for Call: Ankur Valdivia from [facility] would like to confirm that patient is still being treated at this office. Please advise. Best time of day caller can be reached: any Patient advised that office/PCP has 24-48 business hours to return their call: Yes [facility] Basophil percentageOrdered B y: Melissa Reed on 09-29-2023 Chloride [Moles/Vol] 106 mmol/L 98-107 [facility] Glucose [Mass/Vol] 165 mg/dL 74-106 [facility] Comment on above: Fasting Glucose resu lt greater than or equal to 126 mg/dL suggests DIABETES MELLITUS per A.D.A. criteria. Potassium [Moles/Vol] 3.5 mmol/L 3.5-5.1 [facility] Sodium [Moles/Vol] 135 mmol/L 136-145 [facility] Laboratory - Chemistry and C hemistry - challengeOrdered By: Melissa Reed on 09-29-2023 CO2 [Moles/Vol] 26.0 mmol/L 21.0-32.0 [facility] Urea nitrogen/Creatinine [Mass ratio] 23.7 mg/mg 10-20 [facility] No Panel InformationOrdered By: Melissa Reed on 09-29-2023 Estimated GFR (MDRD) Amer 57 mL/min >60 [facility] Comment on above: GFR Calc Estimated GFR (MDRD) Non-Af Amer 47 mL/min >60 [facility] Comment on above: Non- GFR Calc Serum or plasma calcium danae urement (mass/volume)Ordered By: Melissa Reed on 09-29-2023 Calcium [Mass/Vol] 8.5 mg/dL 8.5-10.1 [facility] Serum or plasma creatinine m easurement (mass/volume)Ordered By: Melissa Reed on 09-29-2023 Creatinine [Mass/Vol] 1.18 mg/dL 0.55-1.02 [facility] Comment on above: The validity of the calculated GFR & GFRAA in patients over 70 years has not been determined. Clinical correlation is essential. Serum or plasma urea nitroge n measurement (mass/volume)Ordered By: Melissa Reed on 09-29-2023 Urea nitrogen [Mass/Vol] 28 mg/dL 7-18 [facility] Thin prep Papanicolaou smear with manual screeningOrdered By: Melissa Reed on 09-29-2023 Thin prep Papanicolaou smear with manual screening 3 5-15 [facility] Basophil percentageOrdered B y: Melissa Reed on 09-14-2023 Chloride [Moles/Vol] 106 mmol/L 98-107 [facility] Glucose [Mass/Vol] 191 mg/dL 74-106 [facility] Comment on above: Fasting Glucose resu lt greater than or equal to 126 mg/dL suggests DIABETES MELLITUS per A.D.A. criteria. Potassium [Moles/Vol] 3.8 mmol/L 3.5-5.1 [facility] Sodium [Moles/Vol] 138 mmol/L 136-145 [facility] Laboratory - Chemistry and C hemistry - challengeOrdered By: Melissa Reed on 09-14-2023 CO2 [Moles/Vol] 29.0 mmol/L 21.0-32.0 [facility] Urea nitrogen/Creatinine [Mass ratio] 17.8 mg/mg 10-20 [facility] No Panel InformationOrdered By: Melissa Reed on 09-14-2023 Estimated GFR (MDRD) Amer 63 mL/min >60 [facility] Comment on above: GFR Calc Estimated GFR (MDRD) Non-Af Amer 52 mL/min >60 [facility] Comment on above: Non- GFR Calc Serum or plasma calcium danae urement (mass/volume)Ordered By: Melissa Reed on 09-14-2023 Calcium [Mass/Vol] 8.7 mg/dL 8.5-10.1 [facility] Serum or plasma creatinine m easurement (mass/volume)Ordered By: Melissa Reed on 09-14-2023 Creatinine [Mass/Vol] 1.07 mg/dL 0.55-1.02 [facility] Comment on above: The validity of the calculated GFR & GFRAA in patients over 70 years has not been determined. Clinical correlation is essential. Serum or plasma urea nitroge n measurement (mass/volume)Ordered By: Melissa Reed on 09-14-2023 Urea nitrogen [Mass/Vol] 19 mg/dL 7-18 [facility] Thin prep Papanicolaou smear with manual screeningOrdered By: Melissa Reed on 09-14-2023 Thin prep Papanicolaou smear with manual screening 3 5-15 [facility] Basophil percentageOrdered B y: Melissa Reed on 08-31-2023 Chloride [Moles/Vol] 104 mmol/L 98-107 [facility] Glucose [Mass/Vol] 169 mg/dL 74-106 [facility] Comment on above: Fasting Glucose resu lt greater than or equal to 126 mg/dL suggests DIABETES MELLITUS per A.D.A. criteria. Potassium [Moles/Vol] 3.6 mmol/L 3.5-5.1 [facility] Sodium [Moles/Vol] 140 mmol/L 136-145 [facility] Laboratory - Chemistry and C hemistry - challengeOrdered By: Melissa Reed on 08-31-2023 CO2 [Moles/Vol] 30.0 mmol/L 21.0-32.0 [facility] Urea nitrogen/Creatinine [Mass ratio] 20.3 mg/mg 10-20 [facility] No Panel InformationOrdered By: Melissa Reed on 08-31-2023 Estimated GFR (MDRD) Amer 57 mL/min >60 [facility] Comment on above: GFR Calc Estimated GFR (MDRD) Non-Af Amer 47 mL/min >60 [facility] Comment on above: Non- GFR Calc Serum or plasma calcium danae urement (mass/volume)Ordered By: Melissa Reed on 08-31-2023 Calcium [Mass/Vol] 8.9 mg/dL 8.5-10.1 [facility] Serum or plasma creatinine m easurement (mass/volume)Ordered By: Melissa Reed on 08-31-2023 Creatinine [Mass/Vol] 1.18 mg/dL 0.55-1.02 [facility] Comment on above: The validity of the calculated GFR & GFRAA in patients over 70 years has not been determined. Clinical correlation is essential. Serum or plasma urea nitroge n measurement (mass/volume)Ordered By: Melissa Reed on 08-31-2023 Urea nitrogen [Mass/Vol] 24 mg/dL 7-18 [facility] Thin prep Papanicolaou smear with manual screeningOrdered By: Melissa Reed on 08-31-2023 Thin prep Papanicolaou smear with manual screening 6 5-15 [facility] Basophil percentageOrdered B y: Melissa Reed on 08-17-2023 Chloride [Moles/Vol] 105 mmol/L 98-107 [facility] Glucose [Mass/Vol] 192 mg/dL 74-106 [facility] Comment on above: Fasting Glucose resu lt greater than or equal to 126 mg/dL suggests DIABETES MELLITUS per A.D.A. criteria. Potassium [Moles/Vol] 3.8 mmol/L 3.5-5.1 [facility] Sodium [Moles/Vol] 138 mmol/L 136-145 [facility] Laboratory - Chemistry and C hemistry - challengeOrdered By: Melissa Reed on 08-17-2023 CO2 [Moles/Vol] 29.0 mmol/L 21.0-32.0 [facility] Urea nitrogen/Creatinine [Mass ratio] 22.8 mg/mg 10-20 [facility] No Panel InformationOrdered By: Melissa Reed on 08-17-2023 Estimated GFR (MDRD) Amer 59 mL/min >60 [facility] Comment on above: GFR Calc Estimated GFR (MDRD) Non-Af Amer 49 mL/min >60 [facility] Comment on above: Non- GFR Calc Serum or plasma calcium danae urement (mass/volume)Ordered By: Melissa Reed on 08-17-2023 Calcium [Mass/Vol] 8.8 mg/dL 8.5-10.1 [facility] Serum or plasma creatinine m easurement (mass/volume)Ordered By: Melissa Reed on 08-17-2023 Creatinine [Mass/Vol] 1.14 mg/dL 0.55-1.02 [facility] Comment on above: The validity of the calculated GFR & GFRAA in patients over 70 years has not been determined. Clinical correlation is essential. Serum or plasma urea nitroge n measurement (mass/volume)Ordered By: Melissa Reed on 08-17-2023 Urea nitrogen [Mass/Vol] 26 mg/dL 7-18 [facility] Thin prep Papanicolaou smear with manual screeningOrdered By: Melissa Reed on 08-17-2023 Thin prep Papanicolaou smear with manual screening 4 5-15 [facility] Basophil percentageOrdered B y: Melissa Reed on 08-14-2023 Chloride [Moles/Vol] 104 mmol/L 98-107 [facility] Glucose [Mass/Vol] 146 mg/dL 74-106 [facility] Comment on above: Fasting Glucose resu lt greater than or equal to 126 mg/dL suggests DIABETES MELLITUS per A.D.A. criteria. Potassium [Moles/Vol] 3.4 mmol/L 3.5-5.1 [facility] Sodium [Moles/Vol] 138 mmol/L 136-145 [facility] Laboratory - Chemistry and C hemistry - challengeOrdered By: Melissa Reed on 08-14-2023 CO2 [Moles/Vol] 29.0 mmol/L 21.0-32.0 [facility] Urea nitrogen/Creatinine [Mass ratio] 24.8 mg/mg 10-20 [facility] No Panel InformationOrdered By: Melissa Reed on 08-14-2023 Estimated GFR (MDRD) Amer 60 mL/min >60 [facility] Comment on above: GFR Calc Estimated GFR (MDRD) Non-Af Amer 49 mL/min >60 [facility] Comment on above: Non- GFR Calc Serum or plasma calcium danae urement (mass/volume)Ordered By: Melissa Reed on 08-14-2023 Calcium [Mass/Vol] 9.1 mg/dL 8.5-10.1 [facility] Serum or plasma creatinine m easurement (mass/volume)Ordered By: Melissa Reed on 08-14-2023 Creatinine [Mass/Vol] 1.13 mg/dL 0.55-1.02 [facility] Comment on above: The validity of the calculated GFR & GFRAA in patients over 70 years has not been determined. Clinical correlation is essential. Serum or plasma urea nitroge n measurement (mass/volume)Ordered By: Melissa Reed on 08-14-2023 Urea nitrogen [Mass/Vol] 28 mg/dL 7-18 [facility] Thin prep Papanicolaou smear with manual screeningOrdered By: Melissa Reed on 08-14-2023 Thin prep Papanicolaou smear with manual screening 5 5-15 [facility] Basophil percentageOrdered B y: Melissa Reed on 07-31-2023 Chloride [Moles/Vol] 107 mmol/L 98-107 [facility] Glucose [Mass/Vol] 149 mg/dL 74-106 [facility] Comment on above: Fasting Glucose resu lt greater than or equal to 126 mg/dL suggests DIABETES MELLITUS per A.D.A. criteria. Potassium [Moles/Vol] 3.4 mmol/L 3.5-5.1 [facility] Sodium [Moles/Vol] 142 mmol/L 136-145 [facility] Laboratory - Chemistry and C hemistry - challengeOrdered By: Melissa Reed on 07-31-2023 CO2 [Moles/Vol] 30.0 mmol/L 21.0-32.0 [facility] Urea nitrogen/Creatinine [Mass ratio] 21.7 mg/mg 10-20 [facility] No Panel InformationOrdered By: Melissa Reed on 07-31-2023 Estimated GFR (MDRD) Amer 64 mL/min >60 [facility] Comment on above: GFR Calc Estimated GFR (MDRD) Non-Af Amer 53 mL/min >60 [facility] Comment on above: Non- GFR Calc Serum or plasma calcium danae urement (mass/volume)Ordered By: Melissa Reed on 07-31-2023 Calcium [Mass/Vol] 8.7 mg/dL 8.5-10.1 [facility] Serum or plasma creatinine m easurement (mass/volume)Ordered By: Melissa Reed on 07-31-2023 Creatinine [Mass/Vol] 1.06 mg/dL 0.55-1.02 [facility] Comment on above: The validity of the calculated GFR & GFRAA in patients over 70 years has not been determined. Clinical correlation is essential. Serum or plasma urea nitroge n measurement (mass/volume)Ordered By: Melissa Reed on 07-31-2023 Urea nitrogen [Mass/Vol] 23 mg/dL 7-18 [facility] Thin prep Papanicolaou smear with manual screeningOrdered By: Melissa Reed on 07-31-2023 Thin prep Papanicolaou smear with manual screening 5 5-15 [facility] Basophil percentageOrdered B y: Melissa Reed on 07-17-2023 Chloride [Moles/Vol] 106 mmol/L 98-107 [facility] Glucose [Mass/Vol] 141 mg/dL 74-106 [facility] Comment on above: Fasting Glucose resu lt greater than or equal to 126 mg/dL suggests DIABETES MELLITUS per A.D.A. criteria. Potassium [Moles/Vol] 4.0 mmol/L 3.5-5.1 [facility] Comment on above: Moderate Hemolysis, Result may be falsely increased. Sodium [Moles/Vol] 137 mmol/L 136-145 [facility] Laboratory - Chemistry and C hemistry - challengeOrdered By: Melissa Reed on 07-17-2023 CO2 [Moles/Vol] 29.0 mmol/L 21.0-32.0 [facility] Urea nitrogen/Creatinine [Mass ratio] 22.6 mg/mg 10-20 [facility] No Panel InformationOrdered By: Melissa Reed on 07-17-2023 Estimated GFR (MDRD) Amer 58 mL/min >60 [facility] Comment on above: GFR Calc Estimated GFR (MDRD) Non-Af Amer 48 mL/min >60 [facility] Comment on above: Non- GFR Calc Serum or plasma calcium danae urement (mass/volume)Ordered By: Melissa Reed on 07-17-2023 Calcium [Mass/Vol] 9.3 mg/dL 8.5-10.1 [facility] Serum or plasma creatinine m easurement (mass/volume)Ordered By: Melissa Reed on 07-17-2023 Creatinine [Mass/Vol] 1.15 mg/dL 0.55-1.02 [facility] Comment on above: The validity of the calculated GFR & GFRAA in patients over 70 years has not been determined. Clinical correlation is essential. Serum or plasma urea nitroge n measurement (mass/volume)Ordered By: Melissa Reed on 07-17-2023 Urea nitrogen [Mass/Vol] 26 mg/dL 7-18 [facility] Thin prep Papanicolaou smear with manual screeningOrdered By: Melissa Reed on 07-17-2023 Thin prep Papanicolaou smear with manual screening 2 5-15 [facility] Basophil percentageOrdered B y: Melissa Reed on 07-03-2023 Chloride [Moles/Vol] 106 mmol/L 98-107 [facility] Glucose [Mass/Vol] 134 mg/dL 74-106 [facility] Comment on above: Fasting Glucose resu lt greater than or equal to 126 mg/dL suggests DIABETES MELLITUS per A.D.A. criteria. Potassium [Moles/Vol] 4.0 mmol/L 3.5-5.1 [facility] Sodium [Moles/Vol] 140 mmol/L 136-145 [facility] Laboratory - Chemistry and C hemistry - challengeOrdered By: Melissa Reed on 07-03-2023 CO2 [Moles/Vol] 28.0 mmol/L 21.0-32.0 [facility] Urea nitrogen/Creatinine [Mass ratio] 20.5 mg/mg 10-20 [facility] No Panel InformationOrdered By: Melissa Reed on 07-03-2023 Estimated GFR (MDRD) Amer 71 mL/min >60 [facility] Comment on above: GFR Calc Estimated GFR (MDRD) Non-Af Amer 58 mL/min >60 [facility] Comment on above: Non- GFR Calc Serum or plasma calcium danae urement (mass/volume)Ordered By: Melissa Reed on 07-03-2023 Calcium [Mass/Vol] 8.6 mg/dL 8.5-10.1 [facility] Serum or plasma creatinine m easurement (mass/volume)Ordered By: Melissa Reed on 07-03-2023 Creatinine [Mass/Vol] 0.98 mg/dL 0.55-1.02 [facility] Comment on above: The validity of the calculated GFR & GFRAA in patients over 70 years has not been determined. Clinical correlation is essential. Serum or plasma urea nitroge n measurement (mass/volume)Ordered By: Melissa Reed on 07-03-2023 Urea nitrogen [Mass/Vol] 20 mg/dL 7-18 [facility] Thin prep Papanicolaou smear with manual screeningOrdered By: Melissa Reed on 07-03-2023 Thin prep Papanicolaou smear with manual screening 6 5-15 [facility] Culture, urineOrdered By: Sd Reed on 06-23-2023 Bacteria identified Cx Nom (U) ESBL Escherichia coli [facility] Progress Noteon 06-23-2023 Progress Note EMR reviewed. The patient was at [facility] for several weeks after a hospitalization. [facility] called and spoke with a staff member today and the patient was discharged to the [facility] living facility. PMH: RLS, HTN, GI-BLEED, CKD3, DM2, HYPOTHYROID, ANXIETY, DEPRESSION, HYPOKALEMIA, HYPERLIPIDEMIA HTN MEDS: AMLODIPINE 10MG DAILY SHE STATED THE NURSE HAS BEEN CHECKING HER BP'S 3 TIMES DAILY DM MEDS: LANTUS INSULIN 19 UNITS DAILY HUMALOG INSULIN 10 UNITS 3 TIMES DAILY WITH MEALS [id number]-16.6 ON 03/01/23 THE PATIENT STATED SHE IS [...] IS NOW SEEING THE DOCTOR AT THE [facility]. SDOH COMPLETED. 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 PROGRAM DUE TO PCP CHANGING. Normal [facility] Absolute lymphocyte countOrd ered By: Melissa Reed on 06-20-2023 Lymphocytes Auto (Unsp spec) [#/Vol] 1.72 10*3/uL 0.83-4.51 [facility] Basophil percentageOrdered B y: Melissa Reed on 06-20-2023 Basophils/100 WBC (Bld) 1.0 % 0-1 [facility] Chloride [Moles/Vol] 108 mmol/L 98-107 [facility] Eosinophils/100 WBC (Bld) 7.8 % 0-5 [facility] Glucose [Mass/Vol] 155 mg/dL 74-106 [facility] Comment on above: Fasting Glucose resu lt greater than or equal to 126 mg/dL suggests DIABETES MELLITUS per A.D.A. criteria. Neutrophils (Bld) [#/Vol] 5.3 10*3/uL 2.0-7.7 [facility] Neutrophils/100 WBC (Bld) 61.1 % 47-70 [facility] Potassium [Moles/Vol] 4.0 mmol/L 3.5-5.1 [facility] Sodium [Moles/Vol] 140 mmol/L 136-145 [facility] WBC (Bld) [#/Vol] 8.6 10*3/uL 4.4-11.0 [facility] Blood erythrocytes count (nu mber/volume)Ordered By: Melissa Reed on 06-20-2023 RBC (Bld) [#/Vol] 3.97 10*6/uL 4.2-5.4 [facility] Blood hemoglobin measurement (mass/volume)Ordered By: Melissa Reed on 06-20-2023 Hemoglobin (Bld) [Mass/Vol] 11.0 g/dL 12.0-15.0 [facility] Blood lymphocytes/100 leukoc ytesOrdered By: Melissa Reed on 06-20-2023 Lymphocytes/100 WBC (Bld) 20.0 % 19-41 [facility] Blood monocytes/100 leukocyt esOrdered By: Melissa Reed on 06-20-2023 Monocytes/100 WBC (Bld) 9.9 % 0-10 [facility] Blood platelet mean volumeOr dered By: Melissa Reed on 06-20-2023 Platelet mean volume (Bld) [Entitic vol] 9.9 fL 6.2-12.0 [facility] Determination of erythrocyte mean corpuscular volume (MCV)Ordered By: Melissa Reed on 06-20-2023 MCV (RBC) [Entitic vol] 93.2 fL 81-99 [facility] Hematocrit Auto (Bld) [Volum e fraction]Ordered By: Melissa Reed on 06-20-2023 Hematocrit (Bld) [Volume fraction] 37.0 % 37-47 [facility] Laboratory - Chemistry and C hemistry - challengeOrdered By: Melissa Reed on 06-20-2023 CO2 [Moles/Vol] 30.0 mmol/L 21.0-32.0 [facility] Cobalamin (Vitamin B12) [Mass/Vol] 430 pg/mL 211-911 [facility] Magnesium [Mass/Vol] 2.0 mg/dL 1.6-2.6 [facility] Urea nitrogen/Creatinine [Mass ratio] 19.8 mg/mg 10-20 [facility] Laboratory - Hematology and Cell countsOrdered By: Melissa Reed on 06-20-2023 Erythrocyte distribution width (RBC) [Entitic vol] 48.2 fL 35.1-43.9 [facility] Erythrocyte distribution width (RBC) [Ratio] 14.2 % 11.6-14.6 [facility] Immature granulocytes/100 WBC (Bld) 0.200 % 0.0-0.9 [facility] Comment on above: IG% - Immature Granu locytes (promyelocytes, myelocytes and metamyelocytes) > 1% indicates that a LEFT SHIFT is Present. MCH (RBC) [Entitic mass] 27.7 pg 27.0-32.0 [facility] Nucleated RBC/100 WBC (Bld) [Ratio] 0 % 0-5 [facility] MCHC Auto (RBC) [Mass/Vol]Or dered By: Melissa Reed on 06-20-2023 MCHC (RBC) [Mass/Vol] 29.7 g/dL 32-36 [facility] No Panel InformationOrdered By: Melissa Reed on 06-20-2023 Estimated GFR (MDRD) Amer 72 mL/min >60 [facility] Comment on above: GFR Calc Estimated GFR (MDRD) Non-Af Amer 60 mL/min >60 [facility] Comment on above: Non- GFR Calc Thyroid Stimulating Hormone (TSH) 1.57 uIU/mL 0.358-3.74 [facility] Vitamin D 25-Hydroxy 60.6 ng/mL [facility] Comment on above: Vitamin D 25(OH) Sta tus Range Deficiency <20 ng/mL (50nmol/L) Insufficiency 20 - 30 ng/mL (50 - 75 nmol/L) Sufficiency 30 - 100 ng/mL (75 - 250 nmol/L) Toxicity >100 ng/mL (>250 nmol/L) Platelets bldOrdered By: Lillian Reed on 06-20-2023 Platelets (Bld) [#/Vol] 317 10*3/uL 150-450 [facility] Serum or plasma calcium danae urement (mass/volume)Ordered By: Melissa Reed on 06-20-2023 Calcium [Mass/Vol] 8.8 mg/dL 8.5-10.1 [facility] Serum or plasma creatinine m easurement (mass/volume)Ordered By: Melissa Reed on 06-20-2023 Creatinine [Mass/Vol] 0.96 mg/dL 0.55-1.02 [facility] Comment on above: The validity of the calculated GFR & GFRAA in patients over 70 years has not been determined. Clinical correlation is essential. Serum or plasma urea nitroge n measurement (mass/volume)Ordered By: Melissa Reed on 06-20-2023 Urea nitrogen [Mass/Vol] 19 mg/dL 7-18 [facility] Thin prep Papanicolaou smear with manual screeningOrdered By: Melissa Reed on 06-20-2023 Thin prep Papanicolaou smear with manual screening 2 5-15 [facility] Whole blood hemoglobin A1c/t otal hemoglobin ratio (mass fraction)Ordered By: Melissa Reed on 06-20-2023 HbA1c (Bld) [Mass fraction] 6.4 % 3.8-5.6 [facility] Comment on above: Normal < 5.7 % Predi abetic 5.7 - 6.4 % Diabetic >or= 6.5 % Please note range changes. Progress Noteon 06-07-2023 Progress Note CM called and spoke with a staff member at [facility]. The patient is still at the facility. CM will follow-up with the patient once she is discharged to home. Normal [facility] Culture, urineOrdered By: Anastasia Olvera on 05-10-2023 Bacteria identified Cx Nom (U) Klebsiella pneumoniae sp pneum [facility] Bacteria identified Cx Nom (U) Klebsiella pneumoniae sp pneum [facility] No Panel InformationOrdered By: Lambert Olvera on 05-01-2023 Thyroid Stimulating Hormone (TSH) 1.91 uIU/mL 0.358-3.74 [facility] Progress Noteon 04-06-2023 Progress Note EMR REVIEWED. [...] was discharged. RECOMMENDED NEXT STEPS: Transferred to [facility]. Continue close monitoring of BG. Avoid nephrotoxins/NSAIDS/bela inh. Levothroid dose decreased. Apresoline started. PMH: RLS, HTN, GI-BLEED, CKD3, DM2, HYPOTHYROID, ANXIETY, DEPRESSION, HYPOKALEMIA, HYPERLIPIDEMIA FOLLOW-UP APPTS: 04/27/23-FAMILY MEDICINE HTN MEDS: AMLODIPINE 10MG DAILY HYDRALAZINE 25MG THREE TIMES DAILY ?CHECKING BP'S DM MEDS: LANTUS INSULIN 19 UNITS DAILY HUMALOG INSULIN 10 UNITS WITH MEALS [id number] ON 03/01/23 ?MONITORING BLOOD SUGARS CM CALLED AND SPOKE WITH THE PT'S SON-MAXIMINO. HE STATED THE PT. IS CURRENTLY ADMITTED TO [facility]. HE STATED THE PT. WILL PROBABLY BE GOING TO AN ASSISTED LIVING FACILITY WHEN SHE IS DISCHARGED DUE TO THE PT. NOT BEING ABLE TO CARE FOR HERSELF ALONE AT HOME. CM WILL FOLLOW-UP WITH THE PT. ONCE SHE IS DISCHARGED FROM SNF. Normal [facility] Basophil percentageOrdered B y: Lambert Olvera on 04-04-2023 Bilirubin [Mass/Vol] 0.30 mg/dL 0.20-1.00 [facility] Comment on above: For patients on eltr ombopag therapy, use of [employer] [place] TBIL is not recommended. Chloride [Moles/Vol] 109 mmol/L 98-107 [facility] Glucose [Mass/Vol] 112 mg/dL 74-106 [facility] Comment on above: Fasting Glucose resu lt from 100 to 125 mg/dL suggests IMPAIRED HOMEOSTASIS per A.D.A. criteria. Potassium [Moles/Vol] 4.2 mmol/L 3.5-5.1 [facility] Protein [Mass/Vol] 6.5 g/dL 6.4-8.2 [facility] Sodium [Moles/Vol] 140 mmol/L 136-145 [facility] WBC (Bld) [#/Vol] 8.5 10*3/uL 4.4-11.0 [facility] Blood erythrocytes count (nu mber/volume)Ordered By: Lambert Olvera on 04-04-2023 RBC (Bld) [#/Vol] 4.34 10*6/uL 4.2-5.4 [facility] Blood hemoglobin measurement (mass/volume)Ordered By: Lambert Olvera on 04-04-2023 Hemoglobin (Bld) [Mass/Vol] 11.9 g/dL 12.0-15.0 [facility] Blood platelet mean volumeOr dered By: Lambert Olvera on 04-04-2023 Platelet mean volume (Bld) [Entitic vol] 10.4 fL 6.2-12.0 [facility] Determination of erythrocyte mean corpuscular volume (MCV)Ordered By: Lambert Olvera on 04-04-2023 MCV (RBC) [Entitic vol] 91.9 fL 81-99 [facility] Hematocrit Auto (Bld) [Volum e fraction]Ordered By: Lambert Olvera on 04-04-2023 Hematocrit (Bld) [Volume fraction] 39.9 % 37-47 [facility] Laboratory - Chemistry and C hemistry - challengeOrdered By: Lambert Olvera on 04-04-2023 ALP [Catalytic activity/Vol] 96 U/L 45-117 [facility] ALT [Catalytic activity/Vol] 28 U/L 13-56 [facility] CO2 [Moles/Vol] 27.0 mmol/L 21.0-32.0 [facility] Globulin (S) [Mass/Vol] 3.7 g/dL 2.2-4.2 [facility] Urea nitrogen/Creatinine [Mass ratio] 21.8 mg/mg 10-20 [facility] Laboratory - Hematology and Cell countsOrdered By: Lambert Olvera on 04-04-2023 Erythrocyte distribution width (RBC) [Entitic vol] 47.0 fL 35.1-43.9 [facility] Erythrocyte distribution width (RBC) [Ratio] 13.9 % 11.6-14.6 [facility] MCH (RBC) [Entitic mass] 27.4 pg 27.0-32.0 [facility] MCHC Auto (RBC) [Mass/Vol]Or dered By: Lambert Olvera on 04-04-2023 MCHC (RBC) [Mass/Vol] 29.8 g/dL 32-36 [facility] No Panel InformationOrdered By: Lambert Olvera on 04-04-2023 Estimated GFR (MDRD) Amer 76 mL/min >60 [facility] Comment on above: GFR Calc Estimated GFR (MDRD) Non-Af Amer 63 mL/min >60 [facility] Comment on above: Non- GFR Calc Platelets bldOrdered By: Lisa Olvera on 04-04-2023 Platelets (Bld) [#/Vol] 315 10*3/uL 150-450 [facility] Serum or plasma albumin danae urement (mass/volume)Ordered By: Lambert Olvera on 04-04-2023 Albumin [Mass/Vol] 2.8 g/dL 3.2-5.0 [facility] Serum or plasma albumin/glob ulin mass ratioOrdered By: Lambert Olvera on 04-04-2023 Albumin/Globulin [Mass ratio] 0.8 {ratio} 0.9-2.4 [facility] Serum or plasma calcium danae urement (mass/volume)Ordered By: Lambert Olvera on 04-04-2023 Calcium [Mass/Vol] 8.6 mg/dL 8.5-10.1 [facility] Serum or plasma creatinine m easurement (mass/volume)Ordered By: Lambert Olvera on 04-04-2023 Creatinine [Mass/Vol] 0.92 mg/dL 0.55-1.02 [facility] Comment on above: The validity of the calculated GFR & GFRAA in patients over 70 years has not been determined. Clinical correlation is essential. Serum or plasma urea nitroge n measurement (mass/volume)Ordered By: Lambert Olvera on 04-04-2023 Urea nitrogen [Mass/Vol] 20 mg/dL 7-18 [facility] Thin prep Papanicolaou smear with manual screeningOrdered By: Lambert Olvera on 04-04-2023 Thin prep Papanicolaou smear with manual screening 20 U/L 15- [facility] Thin prep Papanicolaou smear with manual screening 4 5-15 [facility] Progress Noteon 03-31-2023 Progress Note THE PT. WAS IDENTIFI ED BY [facility] RN FROM THE [facility] CENSUS REPORT. CM WILL CONTINUE TO FOLLOW-UP WITH THE PT. FOR ANY ONGOING CM NEEDS. Normal [facility] Basophil percentageOrdered B y: Lambert Olvera on 03-20-2023 Chloride [Moles/Vol] 105 mmol/L 98-107 [facility] Glucose [Mass/Vol] 103 mg/dL 74-106 [facility] Comment on above: Fasting Glucose resu lt from 100 to 125 mg/dL suggests IMPAIRED HOMEOSTASIS per A.D.A. criteria. Potassium [Moles/Vol] 3.7 mmol/L 3.5-5.1 [facility] Sodium [Moles/Vol] 138 mmol/L 136-145 [facility] WBC (Bld) [#/Vol] 8.0 10*3/uL 4.4-11.0 [facility] Blood erythrocytes count (nu mber/volume)Ordered By: Lambert Olvera on 03-20-2023 RBC (Bld) [#/Vol] 3.75 10*6/uL 4.2-5.4 [facility] Blood hemoglobin measurement (mass/volume)Ordered By: Lambert Olvera on 03-20-2023 Hemoglobin (Bld) [Mass/Vol] 10.3 g/dL 12.0-15.0 [facility] Blood platelet mean volumeOr dered By: Lambert Olvera on 03-20-2023 Platelet mean volume (Bld) [Entitic vol] 10.5 fL 6.2-12.0 [facility] Determination of erythrocyte mean corpuscular volume (MCV)Ordered By: Lambert Olvera on 03-20-2023 MCV (RBC) [Entitic vol] 91.7 fL 81-99 [facility] Hematocrit Auto (Bld) [Volum e fraction]Ordered By: Lambert Olvera on 03-20-2023 Hematocrit (Bld) [Volume fraction] 34.4 % 37-47 [facility] Laboratory - Chemistry and C hemistry - challengeOrdered By: Lambert Olvera on 03-20-2023 CO2 [Moles/Vol] 30.0 mmol/L 21.0-32.0 [facility] Urea nitrogen/Creatinine [Mass ratio] 24.2 mg/mg 10-20 [facility] Laboratory - Hematology and Cell countsOrdered By: Lambert Olvera on 03-20-2023 Erythrocyte distribution width (RBC) [Entitic vol] 45.7 fL 35.1-43.9 [facility] Erythrocyte distribution width (RBC) [Ratio] 13.4 % 11.6-14.6 [facility] MCH (RBC) [Entitic mass] 27.5 pg 27.0-32.0 [facility] MCHC Auto (RBC) [Mass/Vol]Or dered By: Lambert Olvera on 03-20-2023 MCHC (RBC) [Mass/Vol] 29.9 g/dL 32-36 [facility] No Panel InformationOrdered By: Lambert Olvera on 03-20-2023 Estimated GFR (MDRD) Amer 70 mL/min >60 [facility] Comment on above: GFR Calc Estimated GFR (MDRD) Non-Af Amer 57 mL/min >60 [facility] Comment on above: Non- GFR Calc Thyroid Stimulating Hormone (TSH) 0.04 uIU/mL 0.358-3.74 [facility] Platelets bldOrdered By: Lisa Olvera on 03-20-2023 Platelets (Bld) [#/Vol] 333 10*3/uL 150-450 [facility] Serum or plasma calcium danae urement (mass/volume)Ordered By: Lambert Olvera on 03-20-2023 Calcium [Mass/Vol] 8.4 mg/dL 8.5-10.1 [facility] Serum or plasma creatinine m easurement (mass/volume)Ordered By: Lambert Olvera on 03-20-2023 Creatinine [Mass/Vol] 0.99 mg/dL 0.55-1.02 [facility] Comment on above: The validity of the calculated GFR & GFRAA in patients over 70 years has not been determined. Clinical correlation is essential. Serum or plasma urea nitroge n measurement (mass/volume)Ordered By: Lambert Olvera on 03-20-2023 Urea nitrogen [Mass/Vol] 24 mg/dL 7-18 [facility] Thin prep Papanicolaou smear with manual screeningOrdered By: Lambert Olvera on 03-20-2023 Thin prep Papanicolaou smear with manual screening 3 5-15 [facility] Absolute lymphocyte countOrd ered By: Baljit Jaffe on 03-18-2023 Lymphocytes Auto (Unsp spec) [#/Vol] 1.42 10*3/uL 0.83-4.51 [facility] Basophil percentageOrdered B y: Baljit Jaffe on 03-18-2023 Basophils/100 WBC (Bld) 0.6 % 0-1 [facility] Chloride [Moles/Vol] 106 mmol/L 98-107 [facility] Eosinophils/100 WBC (Bld) 5.2 % 0-5 [facility] Glucose [Mass/Vol] 111 mg/dL 74-106 [facility] Comment on above: Fasting Glucose resu lt from 100 to 125 mg/dL suggests IMPAIRED HOMEOSTASIS per A.D.A. criteria. Neutrophils (Bld) [#/Vol] 5.0 10*3/uL 2.0-7.7 [facility] Neutrophils/100 WBC (Bld) 65.0 % 47-70 [facility] Potassium [Moles/Vol] 3.7 mmol/L 3.5-5.1 [facility] Sodium [Moles/Vol] 138 mmol/L 136-145 [facility] WBC (Bld) [#/Vol] 7.8 10*3/uL 4.4-11.0 [facility] Blood erythrocytes count (nu mber/volume)Ordered By: Baljit Jaffe on 03-18-2023 RBC (Bld) [#/Vol] 3.84 10*6/uL 4.2-5.4 [facility] Blood hemoglobin measurement (mass/volume)Ordered By: Baljit Jaffe on 03-18-2023 Hemoglobin (Bld) [Mass/Vol] 10.8 g/dL 12.0-15.0 [facility] Blood lymphocytes/100 leukoc ytesOrdered By: Baljit Jaffe on 03-18-2023 Lymphocytes/100 WBC (Bld) 18.3 % 19-41 [facility] Blood monocytes/100 leukocyt esOrdered By: Baljit Jaffe on 03-18-2023 Monocytes/100 WBC (Bld) 10.6 % 0-10 [facility] Blood platelet mean volumeOr dered By: Baljit Jaffe on 03-18-2023 Platelet mean volume (Bld) [Entitic vol] 9.9 fL 6.2-12.0 [facility] Determination of erythrocyte mean corpuscular volume (MCV)Ordered By: Baljit Jaffe on 03-18-2023 MCV (RBC) [Entitic vol] 90.6 fL 81-99 [facility] Glucose Glucometer (dC) [M ass/Vol]Ordered By: Baljit Jaffe on 03-18-2023 Glucose [Mass/Vol] 111 mg/dL 74-106 [facility] Comment on above: MANAGEMENT OF PATIEN T CARE PER NURSING PROTOCOL Hematocrit Auto (Bld) [Volum e fraction]Ordered By: Baljit Jaffe on 03-18-2023 Hematocrit (Bld) [Volume fraction] 34.8 % 37-47 [facility] Laboratory - Chemistry and C hemistry - challengeOrdered By: Baljit Jaffe on 03-18-2023 CO2 [Moles/Vol] 27.0 mmol/L 21.0-32.0 [facility] Urea nitrogen/Creatinine [Mass ratio] 30.8 mg/mg 10-20 [facility] Laboratory - Hematology and Cell countsOrdered By: Baljit Jaffe on 03-18-2023 Erythrocyte distribution width (RBC) [Entitic vol] 44.9 fL 35.1-43.9 [facility] Erythrocyte distribution width (RBC) [Ratio] 13.4 % 11.6-14.6 [facility] Immature granulocytes/100 WBC (Bld) 0.300 % 0.0-0.9 [facility] Comment on above: IG% - Immature Granu locytes (promyelocytes, myelocytes and metamyelocytes) > 1% indicates that a LEFT SHIFT is Present. MCH (RBC) [Entitic mass] 28.1 pg 27.0-32.0 [facility] Nucleated RBC/100 WBC (Bld) [Ratio] 0 % 0-5 [facility] MCHC Auto (RBC) [Mass/Vol]Or dered By: Baljit Jaffe on 03-18-2023 MCHC (RBC) [Mass/Vol] 31.0 g/dL 32-36 [facility] No Panel InformationOrdered By: Baljit Jaffe on 03-18-2023 Estimated Creatinine Clearance Calc 41.46 ml/min [facility] Estimated GFR (MDRD) Amer 64 mL/min >60 [facility] Comment on above: GFR Calc Estimated GFR (MDRD) Non-Af Amer 53 mL/min >60 [facility] Comment on above: Non- GFR Calc Platelets bldOrdered By: Baljit Jaffe on 03-18-2023 Platelets (Bld) [#/Vol] 333 10*3/uL 150-450 [facility] Serum or plasma calcium danae urement (mass/volume)Ordered By: Baljit Jaffe on 03-18-2023 Calcium [Mass/Vol] 8.4 mg/dL 8.5-10.1 [facility] Serum or plasma creatinine m easurement (mass/volume)Ordered By: Baljit Jaffe on 03-18-2023 Creatinine [Mass/Vol] 1.07 mg/dL 0.55-1.02 [facility] Comment on above: The validity of the calculated GFR & GFRAA in patients over 70 years has not been determined. Clinical correlation is essential. Serum or plasma urea nitroge n measurement (mass/volume)Ordered By: Baljit Jaffe on 03-18-2023 Urea nitrogen [Mass/Vol] 33 mg/dL 7-18 [facility] Thin prep Papanicolaou smear with manual screeningOrdered By: Baljit Jaffe on 03-18-2023 Thin prep Papanicolaou smear with manual screening 5 5-15 [facility] COVID-19 virus antigen assay Ordered By: Baljit Jaffe on 03-17-2023 SARS-CoV-2 (COVID-19) Ag IA.rapid Ql (Resp) [facility] SARS-CoV-2 (COVID-19) Ag IA.rapid Ql (Resp) [facility] Gram stain for investigation of transfusion reactionOrdered By: Baljit Jaffe on 03-17-2023 Microscopic observation Gram stain Nom (Unsp spec) [facility] Microscopic observation Gram stain Nom (Unsp spec) [facility] Routine wound cultureOrdered By: Baljit Jaffe on 03-17-2023 Bacteria identified Cx Nom (Wound) No growth aerobically. [facility] Bacteria identified Cx Nom (Wound) No growth aerobically. [facility] 36on 03-15-2023 36 Sent via [employer]. Normal [facility] 36 Name of caller: Ricco noel [facility] Contact phone number: [phone] Relationship to Patient: [facility] Provider: Dr Lopez Practice: [facility] [place] location Chief Complaint/Reason for Call: 03/15/23 Margaret calling to ask the office /provider about her Immunization Records she stated pt received Pneumococcal 23 on 04/10/21 but she is asking if anymore was given to pt if so, she will need those records faxed over to [phone] pls advise Best time of day caller can be reached: AM Patient advised that office/PCP has 24-48 business hours to return their call: Yes Normal [facility] CARECOORDon 03-06-2023 [facility] Patient Choice Patient Name: RADHA SANDOVAL Date of : 1945 [facility] Bacteria identified Cx Nom ( U)Ordered By: Kalpesh Dillon on 03-03-2023 Interpretation and review of laboratory results [facility] Discharge med list transmitted to [facility] via [employer] per TCC request. [facility] Spoke with pt at bedside regarding POA, pt states she is not interested at this time to complete it and would consider completing at [place] - did call Rafaela at [place] to update her as well. 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 Will notify RN and TCC of this in rounds. Notified patient's son via phone of transportation time. SW remains available if any other needs concerns arise. Normal [facility] You are not granted access to view this sensitive note. Normal [facility] Insurance auth obtai shaina for [facility] intermediate facility, updated Dr Finch notified via [employer] Chat. Normal [facility] CBC W Auto Differential pane l (Bld)on 03-03-2023 Basophils (Bld) [#/Vol] 0.1 10*3/uL 0.0 - 0.2 10*3/uL [facility] Basophils/100 WBC (Bld) 0.6 % 0.0 - 2.0 % [facility] Eosinophils (Bld) [#/Vol] 0.4 10*3/uL 0.0 - 0.5 10*3/uL [facility] Eosinophils/100 WBC (Bld) 4.4 % 1.0 - 6.0 % [facility] Erythrocyte distribution width (RBC) [Ratio] 13.4 % 11.5 - 14.5 % [facility] Hematocrit (Bld) [Volume fraction] 35.5 % 35.0 - 47.0 % [facility] Hemoglobin (Bld) [Mass/Vol] 11.6 g/dL Low 11.7 - 16.0 g/dL [facility] Interpretation and review of laboratory results Abnormal [facility] Lymphocytes (Bld) [#/Vol] 2.0 10*3/uL 1.0 - 4.3 10*3/uL [facility] Lymphocytes/100 WBC (Bld) 22.6 % 20.0 - 40.0 % [facility] MCH (RBC) [Entitic mass] 27.7 pg 26.0 - 34.0 pg [facility] MCHC (RBC) [Mass/Vol] 32.7 % 32.0 - 36.0 % [facility] MCV (RBC) [Entitic vol] 84.8 fL 80.0 - 98.0 fL [facility] Monocytes (Bld) [#/Vol] 1.0 10*3/uL High 0.0 - 0.8 10*3/uL [facility] Monocytes/100 WBC (Bld) 11.6 % High 2.0 - 10.0 % [facility] Neutrophils (Bld) [#/Vol] 5.4 10*3/uL 1.8 - 7.0 10*3/uL [facility] Neutrophils/100 WBC (Bld) 60.8 % 40.0 - 80.0 % [facility] Nucleated RBC/100 WBC (Bld) [Ratio] 0.0 % [facility] Platelet mean volume (Bld) [Entitic vol] 7.9 fL 7.4 - 12.4 fL [facility] Platelets (Bld) [#/Vol] 257 10*3/uL 140 - 440 10*3/uL [facility] RBC (Bld) [#/Vol] 4.19 10*6/uL 3.8 - 5.20 10*6/uL [facility] WBC (Bld) [#/Vol] 9.0 10*3/uL 3.6 - 10.7 10*3/uL [facility] CBC WITH AUTO DIFFERENTIALon 03-03-2023 Basophils (Bld) [#/Vol] 0.1 10*3/uL Normal 0.0-0.2 [facility] Comment on above: Performed By: #### L [id number] ####Rn Office: MARTIN REYES ([id number])[facility] CENTERDiony MONTERO ([facility])[address] [place] [address] Basophils/100 WBC (Bld) 0.6 % Normal 0.0-2.0 [facility] Comment on above: Performed By: #### L [id number] ####Rn Office: MARTIN REYES ([id number])[facility] [place] ([facility])[address] Eosinophils (Bld) [#/Vol] 0.4 10*3/uL Normal 0.0-0.5 [facility] Comment on above: Performed By: #### L [id number] ####Rn Office: MARTIN REYES ([id number])[facility]ENTERA [place] ([facility])[address] Eosinophils/100 WBC (Bld) 4.4 % Normal 1.0-6.0 [facility] Comment on above: Performed By: #### L [id number] ####Rn Office: MARTIN REYES ([phone])[facility] [place] ([facility])[address] [place] [address] Erythrocyte distribution width (RBC) [Ratio] 13.4 % Normal 11.5-14.5 [facility] Comment on above: Performed By: #### L [id number] ####Rn Office: MARTIN REYES ([phone])[facility] [place] ([facility])[address] [place] [address] ERYTHROCYTE MEAN CORPUSCULAR HEMOGLOBIN CONCENTRATION (G/DL) BY AUTOMATED 32.7 % Normal 32.0-36.0 [facility] Comment on above: Performed By: #### L [id number] ####Rn Office: MARTIN REYES ([id number])[facility]A [facility] ([facility])[address] [place] [address] Hematocrit (Bld) [Volume fraction] 35.5 % Normal 35.0-47.0 [facility] Comment on above: Performed By: #### L [id number] ####Rn Office: MARTIN REYES ([id number])[facility] [place] ([facility])[address] [place] [address] Hemoglobin (Bld) [Mass/Vol] 11.6 g/dL Low 11.7-16.0 [facility] Comment on above: Performed By: #### L [id number] ####Rn Office: MARTIN REYES ([id number])[facility] [place] ([facility])[address] Lymphocytes (Bld) [#/Vol] 2.0 10*3/uL Normal 1.0-4.3 [facility] Comment on above: Performed By: #### L [id number] ####Rn Office: MARTIN REYES ([id number])[facility] ([facility])[address] Lymphocytes/100 WBC (Bld) 22.6 % Normal 20.0-40.0 [facility] Comment on above: Performed By: #### L [id number] ####Rn Office: MARTIN REYES ([id number])[facility]A [facility] ([facility])[address] MCH (RBC) [Entitic mass] 27.7 pg Normal 26.0-34.0 [facility] [facility] Comment on above: Performed By: #### L [id number] ####Rn Office: MARTIN REYES ([phone])[facility]ENTERD[facility] (SBHLAB)[address] MCV (RBC) [Entitic vol] 84.8 fL Normal 80.0-98.0 [facility] Comment on above: Performed By: #### L [id number] ####Rn Office: MARTIN REYES ([phone])[facility] (SBHLAB)[address] [place] [address] [place] Monocytes (Bld) [#/Vol] 1.0 10*3/uL High 0.0-0.8 [facility] Comment on above: Performed By: #### L [id number] ####Rn Office: MARTIN REYES ([phone])[facility]ENTERA BARBPRESBYTER[facility]ENTERN (SBHLAB)[address] [place] [address] [place] Monocytes/100 WBC (Bld) 11.6 % High 2.0-10.0 [facility] Comment on above: Performed By: #### L [id number] ####Rn Office: MARTIN FLEMINGCER ([phone])[facility]A [place] (SBHLAB)[address] Neutrophils (Bld) [#/Vol] 5.4 10*3/uL Normal 1.8-7.0 [facility] Comment on above: Performed By: #### L [id number] ####Rn Office: MARTIN ERIC ([phone])[facility] [place] (SBHLAB)[address] Neutrophils/100 WBC (Bld) 60.8 % Normal 40.0-80.0 [facility] Comment on above: Performed By: #### L [id number] ####Rn Office: MARTIN ERIC ([phone])[facility] [place] (SBHLAB)[address] NRBC (PER 100 WBCS) BY AUTOMATED COUNT 0.0 /100 WBCs Normal 0.0-2.0 [facility] Comment on above: Performed By: #### L [id number] ####Rn Office: MARTIN HUANateJOSE R ([phone])[facility] [place] (SBHLAB)[address] Platelet mean volume (Bld) [Entitic vol] 7.9 fL Normal 7.4-12.4 [facility] Comment on above: Performed By: #### L [id number] ####Rn Office: MARTIN AMBROSEJOSE R ([phone])[facility] [place] (SBHLAB)[address] [place] [address] [place] PLATELETS (10*3/UL) IN BLOOD AUTOMATED COUNT 257 10*3/uL Normal 140-440 [facility] Comment on above: Performed By: #### L [id number] ####Rn Office: MARTIN AMBROSEJOSE R ([phone])[facility] [place] (SBHLAB)[address] [place] [address] [place] RBC (Bld) [#/Vol] 4.19 10*6/uL Normal 3.8-5.20 [facility] Comment on above: Performed By: #### L [id number] ####Rn Office: MARTIN REYES ([phone])[facility]A [place]BB[place]N (SBHLAB)[address] WBC (Bld) [#/Vol] 9.0 10*3/uL Normal 3.6-10.7 [facility] Comment on above: Performed By: #### L [id number] ####Rn Office: MARTIN REYES ([phone])[facility] CENTERDiony [place] (SBHLAB)[address] COMPREHENSIVE METABOLIC PANE Real 03-03-2023 Albumin [Mass/Vol] 3.2 g/dL Low 3.5-5.0 [facility] Comment on above: Performed By: #### L [id number] ####Rn Office: MARTIN REYES ([phone])[facility] CENTERDiony [place] (SBHLAB)[address] ALP [Catalytic activity/Vol] 94 U/L Normal 38-126 [facility] Comment on above: Performed By: #### L AB17 ####Rn Office: MARTIN REYES ([phone])[facility] CENTERDiony [place] (SBHLAB)[address] ALT [Catalytic activity/Vol] 12 U/L Normal 0-34 [facility] Comment on above: Performed By: #### L AB17 ####Rn Office: MARTIN REYES ([phone])[facility] CENTERDiony [place] (SBHLAB)[address] Anion gap [Moles/Vol] 2 mmol/L Low 3-13 [facility] Comment on above: Performed By: #### L AB17 ####Rn Office: MARTIN REYES ([phone])[facility]A [place]BB[place] (SBHLAB)[address] AST [Catalytic activity/Vol] 34 U/L Normal 15-46 [facility] Comment on above: Performed By: #### L AB17 ####Rn Office: MARTIN REYES ([phone])[facility] CENTERDiony [place] (SBHLAB)[address] Bilirubin [Mass/Vol] 0.3 mg/dL Normal 0.2-1.3 [facility] Comment on above: Performed By: #### L AB17 ####Rn Office: MARTIN REYES ([phone])[facility] [place] (SBHLAB)[address] Calcium [Mass/Vol] 8.1 mg/dL Low 8.4-10.4 [facility] Comment on above: Performed By: #### L AB17 ####Rn Office: MARTIN REYES ([phone])[facility] [place] (SBHLAB)[address] Chloride [Moles/Vol] 102 mmol/L Normal 98-107 [facility] Comment on above: Performed By: #### L AB17 ####Rn Office: MARTIN REYES ([phone])[facility] [place] (SBHLAB)[address] CO2 [Moles/Vol] 30 mmol/L Normal 22-30 [facility] Comment on above: Performed By: #### L AB17 ####Rn Office: MARTIN REYES ([phone])[facility] CENTERDiony [place] (SBHLAB)[address] Creatinine [Mass/Vol] 0.82 mg/dL Normal 0.52-1.04 [facility] Comment on above: Performed By: #### L AB17 ####Rn Office: MARTIN REYES ([phone])[facility]A [place] (SBHLAB)[address] GLOMERULAR FILTRATION RATE ML/MIN/1.73 SQ M.PREDICTED 72.9 mL/min/1.73m*2 Normal >60.0 [facility] Comment on above: Result Comment: Calc ulation based on the Chronic Kidney Disease Epidemiology Collaboration (CKD-EPI) equation refit without adjustment for race Performed By: #### L AB17 ####Rn Office: MARTIN REYES ([phone])[facility] CENTERDiony BERRIOSPRESBYTERIAN SANT[facility] MED[facility] CENTERN (SBHLAB)[address] Glucose [Mass/Vol] 125 mg/dL High 70-100 [facility] Comment on above: Performed By: #### L AB17 ####Rn Office: MARTIN REYES ([phone])[facility]ENTERDiony [facility] (SBHLAB)[address] Potassium [Moles/Vol] 3.7 mmol/L Normal 3.5-5.1 [facility] Comment on above: Performed By: #### L AB17 ####Rn Office: MARTIN REYES ([phone])[facility] (SBHLAB)[address] Protein [Mass/Vol] 6.2 g/dL Low 6.3-8.2 [facility] Comment on above: Performed By: #### L AB17 ####Rn Office: MARTIN REYES ([phone])[facility] (SBHLAB)[address] Sodium [Moles/Vol] 134 mmol/L Low 135-145 [facility] Comment on above: Performed By: #### L AB17 ####Rn Office: MARTIN REYES ([phone])[facility] (SBHLAB)[address] Urea nitrogen [Mass/Vol] 15 mg/dL Normal 7-17 [facility] Comment on above: Performed By: #### L AB17 ####Rn Office: MARTIN REYES ([phone])[facility] (SBHLAB)[address] Comprehensive metabolic 1998 panelon 03-03-2023 Albumin [Mass/Vol] 3.2 g/dL Low 3.5 - 5.0 g/dL [facility] ALP [Catalytic activity/Vol] 94 U/L 38 - 126 U/L [facility] ALT [Catalytic activity/Vol] 12 U/L 0 - 34 U/L [facility] Anion gap [Moles/Vol] 2 mmol/L Low 3 - 13 mmol/L [facility] AST [Catalytic activity/Vol] 34 U/L 15 - 46 U/L [facility] Bilirubin [Mass/Vol] 0.3 mg/dL 0.2 - 1 .3 mg/dL [facility] Calcium [Mass/Vol] 8.1 mg/dL Low 8.4 - 10. 4 mg/dL [facility] Chloride [Moles/Vol] 102 mmol/L 98 - 10 7 mmol/L [facility] CO2 [Moles/Vol] 30 mmol/L 22 - 30 mmol/L [facility] Creatinine [Mass/Vol] 0.82 mg/dL 0.52 - 1.04 mg/dL [facility] GFR/1.73 sq M.predicted MDRD (S/P/Bld) [Vol rate/Area] 72.9 mL/min/{1.73_m2} - PINF [facility] Comment on above: Calculation based on the Chronic Kidney Disease Epidemiology Collaboration (CKD-EPI) equation refit without adjustment for race Glucose [Mass/Vol] 125 mg/dL High 70 - 100 mg/dL [facility] Interpretation and review of laboratory results Abnormal [facility] Potassium [Moles/Vol] 3.7 mmol/L 3.5 - 5.1 mmol/L [facility] Protein [Mass/Vol] 6.2 g/dL Low 6.3 - 8.2 g/dL [facility] Sodium [Moles/Vol] 134 mmol/L Low 135 - 145 mmol/L [facility] Urea nitrogen [Mass/Vol] 15 mg/dL 7 - 17 mg/dL [facility] POCT glucose meteron 023 Glucose [Mass/Vol] 215 mg/dL High 70 - 100 mg/dL [facility] Interpretation and review of laboratory results Abnormal [facility]: [facility], [address] [place] [address] CLIA ID: [id number] [facility] Glucose [Mass/Vol] 158 mg/dL High 70 - 100 mg/dL [facility] Interpretation and review of laboratory results Abnormal [facility]formed by: [facility], [address] [facility] [address] CLIA ID: [id number] [facility] Progress Noteon 03-03-2023 Progress Note Discharged via ambulance to [facility] Normal [facility] Progress Note Report called to carolina jose at [facility] at [phone] Normal [facility] Urine cultureOrdered By: Sanford Dillon on 03-03-2023 Bacteria identified Cx Nom (U) >100,000 CFU/mL Escherichia coli Abnormal [facility] 25-hydroxyvitamin D3 [Mass/V ol]on 03-02-2023 Therapy is based on measurement of Total 25-OHD with the following classification levels: Less than 20 ng/mL: Indicative of Vit D deficiency 20-30 ng/mL: Suggests Vit D insufficiency Optimal: Greater than or equal to 30 ng/mL Test performed by [employer] Competitive Immunoassay, measuring Total Vitamin D, not individual fractions. [facility] CARECOORDon 03-02-2023 CARECOORD Received a call from Rafaela at [facility], they are able to accept, pt agreeable. 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 [facility] at this time Normal [facility] CBC W Auto Differential pane l (Bld)Ordered By: Wendy Bruce on 03-02-2023 Basophils (Bld) [#/Vol] 0.1 10*3/uL 0.0 - 0.2 10*3/uL [facility] Basophils/100 WBC (Bld) 0.7 % 0.0 - 2.0 % [facility] Eosinophils (Bld) [#/Vol] 0.4 10*3/uL 0.0 - 0.5 10*3/uL [facility] Eosinophils/100 WBC (Bld) 3.9 % 1.0 - 6.0 % [facility] Erythrocyte distribution width (RBC) [Ratio] 13.7 % 11.5 - 14.5 % [facility] Hematocrit (Bld) [Volume fraction] 36.1 % 35.0 - 47.0 % [facility] Hemoglobin (Bld) [Mass/Vol] 11.9 g/dL 11.7 - 16.0 g/dL [facility] Interpretation and review of laboratory results Abnormal [facility] Lymphocytes (Bld) [#/Vol] 1.9 10*3/uL 1.0 - 4.3 10*3/uL [facility] [employer] Lymphocytes/100 WBC (Bld) 20.1 % 20.0 - 40.0 % [facility] [employer] MCH (RBC) [Entitic mass] 28.5 pg 26.0 - 34.0 pg [facility] [employer] MCHC (RBC) [Mass/Vol] 32.8 % 32.0 - 36.0 % [facility] [employer] MCV (RBC) [Entitic vol] 86.8 fL 80.0 - 98.0 fL [facility] [employer] Monocytes (Bld) [#/Vol] 1.1 10*3/uL High 0.0 - 0.8 10*3/uL [facility] Monocytes/100 WBC (Bld) 11.4 % High 2.0 - 10.0 % [facility] [employer] Neutrophils (Bld) [#/Vol] 6.1 10*3/uL 1.8 - 7.0 10*3/uL [facility] [employer] Neutrophils/100 WBC (Bld) 63.9 % 40.0 - 80.0 % [facility] [employer] Nucleated RBC/100 WBC (Bld) [Ratio] 0.1 % [facility] [employer] Platelet mean volume (Bld) [Entitic vol] 8.4 fL 7.4 - 12.4 fL [facility] [employer] Platelets (Bld) [#/Vol] 252 10*3/uL 140 - 440 10*3/uL [facility] RBC (Bld) [#/Vol] 4.16 10*6/uL 3.8 - 5.20 10*6/uL [facility] [employer] WBC (Bld) [#/Vol] 9.5 10*3/uL 3.6 - 10.7 10*3/uL [facility] CBC WITH AUTO DIFFERENTIALon 03-02-2023 Basophils (Bld) [#/Vol] 0.1 10*3/uL Normal 0.0-0.2 [facility] Comment on above: Performed By: #### L [id number] ####Rn Office: MARTIN REYES ([phone])[facility] (SBAB)[address] [place] [address] Basophils/100 WBC (Bld) 0.7 % Normal 0.0-2.0 [facility] Comment on above: Performed By: #### L [id number] ####Rn Office: MARTIN REYES ([phone])[facility] [place] (SBHLAB)[address] Eosinophils (Bld) [#/Vol] 0.4 10*3/uL Normal 0.0-0.5 [facility] Comment on above: Performed By: #### L [id number] ####Rn Office: MARTIN REYES ([phone])[facility] [place] (SBHLAB)[address] Eosinophils/100 WBC (Bld) 3.9 % Normal 1.0-6.0 [facility] Comment on above: Performed By: #### L [id number] ####Rn Office: MARTIN REYES ([phone])[facility] [place] (SBHLAB)[address] Erythrocyte distribution width (RBC) [Ratio] 13.7 % Normal 11.5-14.5 [facility] Comment on above: Performed By: #### L [id number] ####Rn Office: MARTIN REYES ([phone])[facility] [place] (SBHLAB)[address] [place] [address] ERYTHROCYTE MEAN CORPUSCULAR HEMOGLOBIN CONCENTRATION (G/DL) BY AUTOMATED 32.8 % Normal 32.0-36.0 [facility] Comment on above: Performed By: #### L [id number] ####Rn Office: MARTIN REYES ([phone])[facility] [place] (SBHLAB)[address] [place] [address] Hematocrit (Bld) [Volume fraction] 36.1 % Normal 35.0-47.0 [facility] Comment on above: Performed By: #### L [id number] ####Rn Office: MARTIN REYES ([phone])[facility]A [place] (SBHLAB)[address] [place] [address] [place] Hemoglobin (Bld) [Mass/Vol] 11.9 g/dL Normal 11.7-16.0 [facility] Comment on above: Performed By: #### L [id number] ####Rn Office: MARTIN AMBROSEJOSE R ([phone])[facility]A [place] (SBHLAB)[address] Lymphocytes (Bld) [#/Vol] 1.9 10*3/uL Normal 1.0-4.3 [facility] Comment on above: Performed By: #### L [id number] ####Rn Office: MARTIN AMBROSEJOSE R ([phone])[facility]ENTERA BARBPRESBYTERIAN SANT[facility] FE MED[facility] CENTERN (SBHLAB)[address] Lymphocytes/100 WBC (Bld) 20.1 % Normal 20.0-40.0 [facility] Comment on above: Performed By: #### L [id number] ####Rn Office: MARTIN AMBROSEJOSE R ([phone])[facility]A [place] (SBHLAB)[address] MCH (RBC) [Entitic mass] 28.5 pg Normal 26.0-34.0 [facility] Comment on above: Performed By: #### L [id number] ####Rn Office: MARTIN AMBROSEJOSE R ([phone])[facility] [place] (SBHLAB)[address] [place] [address] MCV (RBC) [Entitic vol] 86.8 fL Normal 80.0-98.0 [facility] Comment on above: Performed By: #### L [id number] ####Rn Office: MARTIN REYES ([phone])[facility] [place] (SBHLAB)[address] Monocytes (Bld) [#/Vol] 1.1 10*3/uL High 0.0-0.8 [facility] Comment on above: Performed By: #### L [id number] ####Rn Office: MARTIN REYES ([phone])[facility] [place] (SBHLAB)[address] Monocytes/100 WBC (Bld) 11.4 % High 2.0-10.0 [facility] Comment on above: Performed By: #### L [id number] ####Rn Office: MARTIN REYES ([phone])[facility] [place] (SBHLAB)[address] Neutrophils (Bld) [#/Vol] 6.1 10*3/uL Normal 1.8-7.0 [facility] Comment on above: Performed By: #### L [id number] ####Rn Office: MARTIN REYES ([phone])[facility] [place] (SBHLAB)[address] Neutrophils/100 WBC (Bld) 63.9 % Normal 40.0-80.0 [facility] Comment on above: Performed By: #### L [id number] ####Rn Office: MARTIN REYES ([phone])[facility] [place] (SBHLAB)[address] [place] [address] [place] NRBC (PER 100 WBCS) BY AUTOMATED COUNT 0.1 /100 WBCs Normal 0.0-2.0 [facility] Comment on above: Performed By: #### L [id number] ####Rn Office: MARTIN REYES ([phone])[facility] [place] (SBHLAB)[address] Platelet mean volume (Bld) [Entitic vol] 8.4 fL Normal 7.4-12.4 [facility] Comment on above: Performed By: #### L [id number] ####Rn Office: MARTIN REYES ([phone])[facility] [place] (SBHLAB)[address] [place] [address] [place] PLATELETS (10*3/UL) IN BLOOD AUTOMATED COUNT 252 10*3/uL Normal 140-440 [facility] Comment on above: Performed By: #### L [id number] ####Rn Office: MARTIN REYES ([phone])[facility] [place] (SBHLAB)[address] RBC (Bld) [#/Vol] 4.16 10*6/uL Normal 3.8-5.20 [facility] Comment on above: Performed By: #### L [id number] ####Rn Office: MARTIN REYES ([phone])[facility] CENTERDiony [place] (SBHLAB)[address] WBC (Bld) [#/Vol] 9.5 10*3/uL Normal 3.6-10.7 [facility] Comment on above: Performed By: #### L [id number] ####Rn Office: MARTIN REYES ([phone])[facility] CENTERDiony [facility] (SBHLAB)[address] COMPREHENSIVE METABOLIC PANE Real 03-02-2023 Albumin [Mass/Vol] 3.1 g/dL Low 3.5-5.0 [facility] Comment on above: Performed By: #### Eduardo ABUmberto, LAB17, [id number] ####Rn Office: MARTIN REYES ([phone])[facility] CENTERDiony [facility] (SBHLAB)[address] ALP [Catalytic activity/Vol] 100 U/L Normal 38-126 [facility] Comment on above: Performed By: #### L ABUmberto, LAB17, [id number] ####Rn Office: MARTIN REYES ([phone])[facility]ENTERDiony [facility] (SBHLAB)[address] ALT [Catalytic activity/Vol] 13 U/L Normal 0-34 [facility] Comment on above: Performed By: #### L AB127, LAB17, [id number] ####Rn Office: MARTIN REYES ([phone])[facility] (SBHLAB)[address] Anion gap [Moles/Vol] 3 mmol/L Normal 3-13 [facility] Comment on above: Performed By: #### L AB127, LAB17, [id number] ####Rn Office: MARTIN REYES ([phone])[facility] CENTERDiony H[facility] (SBHLAB)[address] AST [Catalytic activity/Vol] 22 U/L Normal 15-46 [facility] Comment on above: Performed By: #### Eduardo TEAGUE, LAB17, [id number] ####Rn Office: MARTIN REYES ([phone])[facility] CENTERDiony [facility] (SBHLAB)[address] Bilirubin [Mass/Vol] 0.4 mg/dL Normal 0.2-1.3 [facility] Comment on above: Performed By: #### Eduardo TEAGUE, LAB17, [id number] ####Rn Office: MARTIN REYES ([phone])[facility]ENTERDiony H[facility] (SBHLAB)[address] Calcium [Mass/Vol] 8.4 mg/dL Normal 8.4-10.4 [facility] Comment on above: Performed By: #### Eduardo TEAGUE, LAB17, [id number] ####Rn Office: MARTIN REYES ([phone])[facility] CENTERDiony HEN (SBHLAB)[address] [place] [address] [place] Chloride [Moles/Vol] 105 mmol/L Normal 98-107 [facility] Comment on above: Performed By: #### Eduardo TEAGUE, LAB17, [id number] ####Rn Office: MARTIN REYES ([phone])[facility] CENTERDiony [facility]RIOSPRESBYTERIAN S[facility]ENTERN (SBHLAB)[address] [place] [address] [place] CO2 [Moles/Vol] 27 mmol/L Normal 22-30 [facility] Comment on above: Performed By: #### Eduardo TEAGUE, LAB17, [id number] ####Rn Office: MARTIN REYES ([phone])[facility]ENTERDiony HEN (SBHLAB)[address] [place] [address] [place] Creatinine [Mass/Vol] 0.77 mg/dL Normal 0.52-1.04 [facility] Comment on above: Performed By: #### Eduardo TEAGUE, LAB17, [id number] ####Rn Office: MARTIN REYES ([phone])[facility] (SBHLAB)[address] GLOMERULAR FILTRATION RATE ML/MIN/1.73 SQ M.PREDICTED 78.6 mL/min/1.73m*2 Normal >60.0 [facility] Comment on above: Result Comment: Calc ulation based on the Chronic Kidney Disease Epidemiology Collaboration (CKD-EPI) equation refit without adjustment for race Performed By: #### Eduardo TEAGUE, LAB17, [id number] ####Rn Office: MARTIN REYES ([phone])[facility] ([facility])[address] [place] [address] Glucose [Mass/Vol] 97 mg/dL Normal 70-100 [facility] Comment on above: Performed By: #### Eduardo TEAGUE, LAB17, [id number] ####Rn Office: MARTIN REYES ([phone])[facility] (SBHLAB)[address] [place] [address] Potassium [Moles/Vol] 4.1 mmol/L Normal 3.5-5.1 [facility] Comment on above: Performed By: #### Eduardo TEAGUE, LAB17, [id number] ####Rn Office: MARTIN REYES ([phone])[facility] (SBHLAB)[address] [place] [address] Protein [Mass/Vol] 5.8 g/dL Low 6.3-8.2 [facility] Comment on above: Performed By: #### Eduardo TEAGUE, LAB17, [id number] ####Rn Office: MARTIN REYES ([phone])[facility] (SBHLAB)[address] Sodium [Moles/Vol] 135 mmol/L Normal 135-145 [facility] Comment on above: Performed By: #### Eduardo TEAGUE, LAB17, [id number] ####Rn Office: MARTIN REYES ([id number])[facility] (SBHLAB)[address] Urea nitrogen [Mass/Vol] 15 mg/dL Normal 7-17 [facility] Comment on above: Performed By: #### L AB127, LAB17, [id number] ####Rn Office: MARTIN REYES ([phone])[facility] (SBHLAB)[address] Comprehensive metabolic 1998 panelon 03-02-2023 Albumin [Mass/Vol] 3.1 g/dL Low 3.5 - 5.0 g/dL [facility] ALP [Catalytic activity/Vol] 100 U/L 38 - 126 U/L [facility] ALT [Catalytic activity/Vol] 13 U/L 0 - 34 U/L [facility] Anion gap [Moles/Vol] 3 mmol/L 3 - 13 mmol/L [facility] AST [Catalytic activity/Vol] 22 U/L 15 - 46 U/L [facility] Bilirubin [Mass/Vol] 0.4 mg/dL 0.2 - 1 .3 mg/dL [facility] Calcium [Mass/Vol] 8.4 mg/dL 8.4 - 10. 4 mg/dL [facility] Chloride [Moles/Vol] 105 mmol/L 98 - 10 7 mmol/L [facility] CO2 [Moles/Vol] 27 mmol/L 22 - 30 mmol/L [facility] Creatinine [Mass/Vol] 0.77 mg/dL 0.52 - 1.04 mg/dL [facility] GFR/1.73 sq M.predicted MDRD (S/P/Bld) [Vol rate/Area] 78.6 mL/min/{1.73_m2} - [facility] Comment on above: Calculation based on the Chronic Kidney Disease Epidemiology Collaboration (CKD-EPI) equation refit without adjustment for race Glucose [Mass/Vol] 97 mg/dL 70 - 100 mg/dL [facility] Interpretation and review of laboratory results Abnormal [facility] Potassium [Moles/Vol] 4.1 mmol/L 3.5 - 5.1 mmol/L [facility] Protein [Mass/Vol] 5.8 g/dL Low 6.3 - 8.2 g/dL [facility] Sodium [Moles/Vol] 135 mmol/L 135 - 145 mmol/L [facility] Urea nitrogen [Mass/Vol] 15 mg/dL 7 - 17 mg/dL [facility] FREE T4on 03-02-2023 Free T4 [Mass/Vol] 3.28 ng/dL High 0.78-2.19 [facility] System [facility] Comment on above: Performed By: #### L [id number], [id number] ####Rn Office: MARTIN REYES ([phone])[facility] MEDICAL CENTERDiony MONTERO (SBHLAB)[address] [place] [address] Free T4 [Mass/Vol]on 023 Free T4 Dialysis [Mass/Vol] 3.28 ng/dL High 0.78 - 2.19 ng/dL [facility] No Panel Informationon 03-02 Interpretation and review of laboratory results Abnormal [facility] POCT glucose meteron 023 Glucose [Mass/Vol] 175 mg/dL High 70 - 100 mg/dL [facility] Interpretation and review of laboratory results Abnormal [facility]: [facility], [address] [place] [address] CLIA ID: [id number] [facility] Glucose [Mass/Vol] 214 mg/dL High 70 - 100 mg/dL [facility] Interpretation and review of laboratory results Abnormal [facility] Performed by: [facility], [address] [place] [address] CLIA ID: [id number] [facility] Glucose [Mass/Vol] 141 mg/dL High 70 - 100 mg/dL [facility] Interpretation and review of laboratory results Abnormal [facility] Performed by: [facility], [address] [place] [address] CLIA ID: [id number] [facility] Progress Noteon 03-02-2023 Progress Note Department of Thermoplastic Technician al Medicine Division of Endocrinology, Diabetes, & Metabolism Endocrinology Note Patient Name: Radha Sandoval : 1945 AGE: 77 y.o. Room/Bed: [facility] A Admission Date: 02/28/2023 Visit Date: 03/02/2023 Reason for Endocrine Consult: DM-Uncontrolled Provider/Team Requesting Consult: Dr. Finch PCP: Shiv Lopez MD Outpt Dairy Farm Operator: No ASSESSMENT: Type II diabetes with hyperglycemia, with manager benefit insulin use Postoperative hypothyroidism Patient admitted for [...] before breakfast Patient to discharge to SNF [facility] Outpt Follow Up-- PCP SUBJECTIVE/HPI: CHIEF [...] diagnosis. She has been having diarrhea in 9678-7206, smt severe Glimepiride- started in 2015 Trulicity [...] reviewed. Constituti (more content not included)... Normal [facility] Progress Note Occupational Therapy OCCUPATIONAL THERAPY [facility] Treatment Note Name/MRN: Radha Sandoval ([id number]) Date of : 1945 Age: 77 y.o. [...] to rehab service department Occupational Therapist Normal [facility] Progress Note [facility] Inpatient Consult Service Admission Date: 02/28/2023 Assessment Principal Problem: LING (acute kidney injury) (CMS/HCC) ([facility]) Active Problems: Declining functional status Weakness Anxiety Polypharmacy DNR (do not resuscitate) Insomnia Plan Declining functional status -Related to physical deconditioning, UTI, advanced age, diabetes type 2 -Continue PT/OT as able while inpatient -Anticipate d/c to SNF for ongoing daily PT/OT, patient agreeable to go to [facility] Fall Weakness -Multiple risk factors [...] you Subjective Chief Complaint: low back pain/dysuria/polyuria/w [facility] Geriatrics consulted for functional decline HPI- The [...] contact guard. Ambulated 30 ft x2. Recommending intermediate facility . Review of Systems Constitutional: Negative [...] 2 pu (more content not included)... Normal [facility] Progress Note Nutrition rescreen completed. Pt referred to RD for uncontrolled DM, and nutrition supplement per Wound Care. Normal [facility] VITAMIN D DEFICIENCY SCREENI NG (VIT D 25)on 03-02-2023 VIT D 25-OH, TOTAL 17 ng/mL Low 30-100 [facility] Comment on above: Result Comment: LISA Mejia COMMENTS: Therapy is based on measurement of Total 25-OHD with the following classification levels: Less than 20 ng/mL: Indicative of Vit D deficiency 20-30 ng/mL: Suggests Vit D insufficiency Optimal: Greater than or equal to 30 ng/mL Test performed by [employer] Competitive Immunoassay, measuring Total Vitamin D, not individual fractions. Performed By: #### L AB127, LAB17, [id number] ####Rn Office: MARTIN REYES ([phone])[facility] ([facility] [place] [address] Vitamin D Deficiency Screeni ng (Vit D 25)on 03-02-2023 25-hydroxyvitamin D3 [Mass/Vol] 17 ng/mL Low 30 - 100 ng/mL [facility] [id number] 03-01-2023 [id number] Senior Communications Engineer following case for Discharge Needs. Therapy states SNF, but Patient wants HC instead. [facility]23 [facility] Care Managment Initi al Assessment Date: 03/01/2023 Patient Name: Radha Sandoval : 1945 Patient Information Source of Information: Patient Cognition/Language: WFL - Within Functional Limits Permission given to speak with patient sales representative church furniture/caregive r as indicated: Yes Confirmation of Payer with patient/family: Yes Payer Name: [employer] [place]: No Confirmation of Primary Care Physician: Confirmed [...] Prescription Coverage: Yes Pharmacy Used: [facility] Medication Management: Independent Transportation/Shopping : Independent Transportation [...] follow as needed. Laura Jackson RN Normal [facility] CBC W Auto Differential pane l (Bld)Ordered By: Rosey Viera on 03-01-2023 Basophils (Bld) [#/Vol] 0.1 10*3/uL 0.0 - 0.2 10*3/uL [facility] Basophils/100 WBC (Bld) 0.6 % 0.0 - 2.0 % [facility] Eosinophils (Bld) [#/Vol] 0.2 10*3/uL 0.0 - 0.5 10*3/uL [facility] Eosinophils/100 WBC (Bld) 1.4 % 1.0 - 6.0 % [facility] Erythrocyte distribution width (RBC) [Ratio] 13.6 % 11.5 - 14.5 % [facility] Hematocrit (Bld) [Volume fraction] 34.9 % Low 35.0 - 47.0 % [facility] Hemoglobin (Bld) [Mass/Vol] 11.5 g/dL Low 11.7 - 16.0 g/dL [facility] Interpretation and review of laboratory results Abnormal [facility] Lymphocytes (Bld) [#/Vol] 1.7 10*3/uL 1.0 - 4.3 10*3/uL [facility] Lymphocytes/100 WBC (Bld) 12.6 % Low 20.0 - 40.0 % [facility] MCH (RBC) [Entitic mass] 28.7 pg 26.0 - 34.0 pg [facility] MCHC (RBC) [Mass/Vol] 33.0 % 32.0 - 36.0 % [facility] MCV (RBC) [Entitic vol] 87.1 fL 80.0 - 98.0 fL [facility] Monocytes (Bld) [#/Vol] 1.5 10*3/uL High 0.0 - 0.8 10*3/uL [facility] Monocytes/100 WBC (Bld) 10.8 % High 2.0 - 10.0 % [facility] Neutrophils (Bld) [#/Vol] 10.3 10*3/uL High 1.8 - 7.0 10*3/uL [facility] Neutrophils/100 WBC (Bld) 74.6 % 40.0 - 80.0 % [facility] Nucleated RBC/100 WBC (Bld) [Ratio] 0.0 % [facility] Platelet mean volume (Bld) [Entitic vol] 8.5 fL 7.4 - 12.4 fL [facility] Platelets (Bld) [#/Vol] 271 10*3/uL 140 - 440 10*3/uL [facility] RBC (Bld) [#/Vol] 4.00 10*6/uL 3.8 - 5.20 10*6/uL [facility] WBC (Bld) [#/Vol] 13.8 10*3/uL High 3.6 - 10.7 10*3/uL [facility] CBC WITH AUTO DIFFERENTIALon 03-01-2023 Basophils (Bld) [#/Vol] 0.1 10*3/uL Normal 0.0-0.2 [facility] Comment on above: Performed By: #### L [id number] ####Rn Office: MARTIN REYES ([phone])[facility] ([facility])[address] [place] [address] Basophils/100 WBC (Bld) 0.6 % Normal 0.0-2.0 [facility] Comment on above: Performed By: #### L [id number] ####Rn Office: MARTIN REYES ([phone])[facility] ([facility])[address] Eosinophils (Bld) [#/Vol] 0.2 10*3/uL Normal 0.0-0.5 [facility] Comment on above: Performed By: #### L [id number] ####Rn Office: MARTIN REYES ([id number])[facility])[address] Eosinophils/100 WBC (Bld) 1.4 % Normal 1.0-6.0 [facility] Comment on above: Performed By: #### L [id number] ####Rn Office: MARTIN HUANateJOSE R ([phone])[facility] ([facility])[address] [place] [address] Erythrocyte distribution width (RBC) [Ratio] 13.6 % Normal 11.5-14.5 [facility] Comment on above: Performed By: #### L [id number] ####Rn Office: MARTIN ERIC ([phone])[facility] ([facility])[address] ERYTHROCYTE MEAN CORPUSCULAR HEMOGLOBIN CONCENTRATION (G/DL) BY AUTOMATED 33.0 % Normal 32.0-36.0 [facility] Comment on above: Performed By: #### L [id number] ####Rn Office: MARTIN ERIC ([phone])[facility] ([facility])[address] [place] [address] Hematocrit (Bld) [Volume fraction] 34.9 % Low 35.0-47.0 [facility] Comment on above: Performed By: #### L [id number] ####Rn Office: MARTIN AMBROSEJOSE R ([phone])[facility] ([facility])[address] [place] [address] Hemoglobin (Bld) [Mass/Vol] 11.5 g/dL Low 11.7-16.0 [facility] Comment on above: Performed By: #### L [id number] ####Rn Office: MARTIN AMBROSEJOSE R ([phone])[facility] ([facility])[address] [place] [address] Lymphocytes (Bld) [#/Vol] 1.7 10*3/uL Normal 1.0-4.3 [facility] Comment on above: Performed By: #### L [id number] ####Rn Office: MARTIN AMBROSEJOSE R ([phone])[facility] ([facility])[address] [place] [address] Lymphocytes/100 WBC (Bld) 12.6 % Low 20.0-40.0 [facility] Comment on above: Performed By: #### L [id number] ####Rn Office: MARTIN HUANateJOSE R ([id number])[facility] [place] ([facility])[address] MCH (RBC) [Entitic mass] 28.7 pg Normal 26.0-34.0 [facility] Comment on above: Performed By: #### L [id number] ####Rn Office: MARTIN ERIC ([phone])[facility] [place] ([facility])[address] MCV (RBC) [Entitic vol] 87.1 fL Normal 80.0-98.0 [facility] Comment on above: Performed By: #### L [id number] ####Rn Office: MARTIN ERIC ([phone])[facility] [place] ([facility])[address] [place] [address] [place] Monocytes (Bld) [#/Vol] 1.5 10*3/uL High 0.0-0.8 [facility] Comment on above: Performed By: #### L [id number] ####Rn Office: MARTIN REYES ([id number])[facility] [place] ([facility])[address] Monocytes/100 WBC (Bld) 10.8 % High 2.0-10.0 [facility] Comment on above: Performed By: #### L [id number] ####Rn Office: MARTIN ERIC ([phone])[facility] [place] ([facility])[address] [place] [address] [place] Neutrophils (Bld) [#/Vol] 10.3 10*3/uL High 1.8-7.0 [facility] Comment on above: Performed By: #### L [id number] ####Rn Office: MARTIN ERIC ([id number])[facility] [place] ([facility])[address] [place] [address] [place] Neutrophils/100 WBC (Bld) 74.6 % Normal 40.0-80.0 [facility] Comment on above: Performed By: #### L [id number] ####Rn Office: MARTIN REYES ([id number])[facility] [place] ([facility])[address] NRBC (PER 100 WBCS) BY AUTOMATED COUNT 0.0 /100 WBCs Normal 0.0-2.0 [facility] Comment on above: Performed By: #### L [id number] ####Rn Office: MARTIN REYES ([phone])[facility] [place] ([facility])[address] Platelet mean volume (Bld) [Entitic vol] 8.5 fL Normal 7.4-12.4 [facility] Comment on above: Performed By: #### L [id number] ####Rn Office: MARTIN REYES ([phone])[facility] [place] ([facility])[address] PLATELETS (10*3/UL) IN BLOOD AUTOMATED COUNT 271 10*3/uL Normal 140-440 [facility] Comment on above: Performed By: #### L [id number] ####Rn Office: MARTIN REYES ([phone])[facility] [place] ([facility])[address] [place] [address] RBC (Bld) [#/Vol] 4.00 10*6/uL Normal 3.8-5.20 [facility] Comment on above: Performed By: #### L [id number] ####Rn Office: MARTIN REYES ([id number])[facility] [place] ([facility])[address] [place] [address] [place] WBC (Bld) [#/Vol] 13.8 10*3/uL High 3.6-10.7 [facility] Comment on above: Performed By: #### L [id number] ####Rn Office: MARTIN REYES ([id number])[facility] [place] ([facility])[address] COMPREHENSIVE METABOLIC PANE Real 03-01-2023 Albumin [Mass/Vol] 3.1 g/dL Low 3.5-5.0 [facility] Comment on above: Performed By: #### L AB17 ####Rn Office: MARTIN REYES ([phone])[facility] [place] ([facility])[address] ALP [Catalytic activity/Vol] 102 U/L Normal 38-126 [facility] Comment on above: Performed By: #### L AB17 ####Rn Office: MARTIN REYES ([phone])[facility] [place] ([facility])[address] ALT [Catalytic activity/Vol] 16 U/L Normal 0-34 [facility] Comment on above: Performed By: #### L AB17 ####Rn Office: MARTIN REYES ([id number])[facility] [place] ([facility])[address] Anion gap [Moles/Vol] 9 mmol/L Normal 3-13 [facility] Comment on above: Performed By: #### L AB17 ####Rn Office: MARTIN REYES ([id number])[facility] [place] ([facility])[address] AST [Catalytic activity/Vol] 24 U/L Normal 15-46 [facility] Comment on above: Performed By: #### L AB17 ####Rn Office: MARTIN REYES ([id number])[facility]N ([facility])[address] Bilirubin [Mass/Vol] 0.4 mg/dL Normal 0.2-1.3 [facility] Comment on above: Performed By: #### L AB17 ####Rn Office: MARTIN REYES ([id number])[facility] [place] ([facility])[address] Calcium [Mass/Vol] 8.3 mg/dL Low 8.4-10.4 [facility] Comment on above: Performed By: #### L AB17 ####Rn Office: MARTIN REYES ([id number])[facility] CENTERDiony YASHSTEVENSON ([facility])[address] Chloride [Moles/Vol] 102 mmol/L Normal 98-107 [facility] Comment on above: Performed By: #### L AB17 ####Rn Office: MARTIN REYES ([id number])[facility] CENTERDiony BARBST[place] ([facility])[address] CO2 [Moles/Vol] 26 mmol/L Normal 22-30 [facility] Comment on above: Performed By: #### L AB17 ####Rn Office: MARTIN REYES ([phone])[facility]ENTERDiony BERRIOSSTEVENSON ([facility])[address] Creatinine [Mass/Vol] 0.96 mg/dL Normal 0.52-1.04 [facility] Comment on above: Performed By: #### L AB17 ####Rn Office: MARTIN REYES ([id number])[facility]ENTERDiony BERRIOSSTEVENSON ([facility])[address] GLOMERULAR FILTRATION RATE ML/MIN/1.73 SQ M.PREDICTED 60.3 mL/min/1.73m*2 Normal >60.0 [facility] Comment on above: Result Comment: Calc ulation based on the Chronic Kidney Disease Epidemiology Collaboration (CKD-EPI) equation refit without adjustment for race Performed By: #### L AB17 ####Rn Office: MARTIN REYES ([id number])[facility] CENTERDiony [place]ST[place] ([facility])[address] [place] [address] [place] Glucose [Mass/Vol] 123 mg/dL High 70-100 [facility] Comment on above: Performed By: #### L AB17 ####Rn Office: MARTIN REYES ([phone])[facility]ENTERD[facility]y YASHSTEVENSON ([facility])[address] [place] [address] [place] Potassium [Moles/Vol] 4.3 mmol/L Normal 3.5-5.1 [facility] Comment on above: Performed By: #### L AB17 ####Rn Office: MARTIN REYES ([id number])[facility]ENTERDiony HEN ([facility])[address] Protein [Mass/Vol] 6.0 g/dL Low 6.3-8.2 [facility] Comment on above: Performed By: #### L AB17 ####Rn Office: MARTIN REYES ([phone])[facility] [place] ([facility])[address] Sodium [Moles/Vol] 137 mmol/L Normal 135-145 [facility] Comment on above: Performed By: #### L AB17 ####Rn Office: MARTIN REYES ([phone])[facility]A [facility] ([facility])[address] Urea nitrogen [Mass/Vol] 17 mg/dL Normal 7-17 [facility] Comment on above: Performed By: #### L AB17 ####Rn Office: MARTIN REYES ([id number])[facility] ([facility])[address] [place] [address] Comprehensive metabolic 1998 panelon 03-01-2023 Albumin [Mass/Vol] 3.1 g/dL Low 3.5 - 5.0 g/dL [facility] ALP [Catalytic activity/Vol] 102 U/L 38 - 126 U/L [facility] ALT [Catalytic activity/Vol] 16 U/L 0 - 34 U/L [facility] Anion gap [Moles/Vol] 9 mmol/L 3 - 13 mmol/L [facility] AST [Catalytic activity/Vol] 24 U/L 15 - 46 U/L [facility] Bilirubin [Mass/Vol] 0.4 mg/dL 0.2 - 1 .3 mg/dL [facility] Calcium [Mass/Vol] 8.3 mg/dL Low 8.4 - 10. 4 mg/dL [facility] Chloride [Moles/Vol] 102 mmol/L 98 - 10 7 mmol/L [facility] CO2 [Moles/Vol] 26 mmol/L 22 - 30 mmol/L [facility] Creatinine [Mass/Vol] 0.96 mg/dL 0.52 - 1.04 mg/dL [facility] GFR/1.73 sq M.predicted MDRD (S/P/Bld) [Vol rate/Area] 60.3 mL/min/{1.73_m2} - PINF [facility] Comment on above: Calculation based on the Chronic Kidney Disease Epidemiology Collaboration (CKD-EPI) equation refit without adjustment for race Glucose [Mass/Vol] 123 mg/dL High 70 - 100 mg/dL [facility] Interpretation and review of laboratory results Abnormal [facility] Potassium [Moles/Vol] 4.3 mmol/L 3.5 - 5.1 mmol/L [facility] Protein [Mass/Vol] 6.0 g/dL Low 6.3 - 8.2 g/dL [facility] Sodium [Moles/Vol] 137 mmol/L 135 - 145 mmol/L [facility] Urea nitrogen [Mass/Vol] 17 mg/dL 7 - 17 mg/dL [facility] Consulton 03-01-2023 Consult [facility] Wound Care CONSULT Note Radha [...] hyperglycemia (HCC) 01/16/2020 Morbidly obese ([facility]) 01/16/2020 Vitamin D deficiency 01/16/2020 Moderate episode of recurrent major depressive disorder ([facility]) 06/03/2019 OAB (overactive bladder) 05/06/2021 Localized [...] with diabetic chronic kidney disease ([facility]) 06/30/2022 DDD (degenerative disc disease), lumbar [...] Malaise and fatigue Morbid obesity ([facility]) Muscle weakness Nevus, non-neoplastic Pain in limb Pure hypercholesterolemia RLS (restless legs syndrome) Type 2 diabetes mellitus ([facility]) Varicella PAST SURGICAL HISTORY Past Surgical History: Procedure Laterality Date APPENDECTOMY CHOLECYSTECTOMY 1979 COLONOSCOPY 06/19/2008 COLONOSCOPY W/ BIOPSIES AND POLYPECTOMY N/A 12/07/2022 Performed by Avery Marshall DO at [facility] ENDOSCOPY EYE SURGERY Bilateral early [...] tablet 0 ergocalciferol (Vitamin D-2) 1.25 MG (13626 UT) capsule Take 1 capsule (1.25 mg) by mouth 1 (one) time per week. 90 capsule 1 Glucose Blood (Blood Glucose Test) strip 4 times daily. hydrOX (more content not included)... Normal [facility]S Consult [facility] Inpatient Consult Service Admission Date: 02/28/2023 Admission Status: INPATIENT Chief Complaint: I couldn't get around and they directed me to the hospital because I was peeing constantly from that UTI. Reason for Appointment Geriatrics consulted for functional decline Assessment/Plan Principal Problem: LING (acute kidney injury) ([facility]) ([facility]) Active Problems: Declining functional status Weakness [...] necessary I recommended follow up at our Center at [phone]. Call in 2 weeks for memory (re)testing once acute issue(s) resolve - order placed in [facility] for follow-up Other I deferred full [...] well overnight. Awo (more content not included)... [facility]S Consult This patient is not a new diabetic or new to insulin therapy and therefore does not meet our current criteria for the inpatient diabetes education service. The clinical bedside RN should provide any necessary diabetes education using the Diabetes Survival Skills Booklet available on the unit. Please consider a dietary consult if appropriate and if not already ordered. Contact [facility] to Beds pharmacist for assistance if a new glucometer or any associated supplies are needed. Thank you. Elder MUÑOZ,BSN,[facility] SHS Consult Department of Thermoplastic Technician al Medicine Division of Endocrinology, Diabetes, & Metabolism Endocrinology Note Patient Name: Radha Sandoval : 1945 AGE: 77 y.o. Room/Bed: [facility] A Admission Date: 02/28/2023 Visit Date: 03/01/2023 Reason for Endocrine Consult: DM-Uncontrolled Provider/Team Requesting Consult: Dr. Finch PCP: Shiv Lopez MD Outpt Dairy Farm Operator: No ASSESSMENT: Type II diabetes with hyperglycemia, with residential insulin use Postoperative hypothyroidism PLAN: Humalog 6 [...] diagnosis. She has been having diarrhea in 5580-5540, smt severe Glimepiride- started in 2015 Trulicity [...] Heart s (more content not included)... Normal [facility] HEMOGLOBIN A1Con 03-01-2023 Glucose [Mass/Vol] 315 mg/dL Normal [facility] Comment on above: Performed By: #### L AB90 ####Rn Office: MARTIN REYES ([phone])[facility] ([facility])[address] [place] [address] HbA1c (Bld) [Mass fraction] 12.6 % High <5.7 [facility] Comment on above: Result Comment: Norm al less than 5.7% Prediabetes 5.7% to 6.4% Diabetes 6.5% or higher --HgbA1C levels may not be accurate in patients who have renal disease, received recent blood transfusions, are anemic, or who have dyshemoglobinemia. Performed By: #### L AB90 ####Rn Office: MARTIN REYES ([phone])[facility] ([facility])[address] [place] [address] HbA1c (Bld) [Mass fraction]o n 03-01-2023 Average glucose Estimated from glycated hemoglobin (Bld) [Mass/Vol] 315 mg/dL [facility] Interpretation and review of laboratory results Abnormal [facility] Hemoglobin A1con 03-01-2023 HbA1c (Bld) [Mass fraction] 12.6 % High NINF - 5.7 % [facility] Comment on above: Normal less than 5.7 % Prediabetes 5.7% to 6.4% Diabetes 6.5% or higher --HgbA1C levels may not be accurate in patients who have renal disease, received recent blood transfusions, are anemic, or who have dyshemoglobinemia. POCT glucose meteron 023 Glucose [Mass/Vol] 194 mg/dL High 70 - 100 mg/dL [facility] Interpretation and review of laboratory results Abnormal [facility] Performed by: [facility], [address] [place] [id number] CLIA ID: [id number] [facility] Glucose [Mass/Vol] 95 mg/dL 70 - 100 mg/dL [facility] Interpretation and review of laboratory results Normal [facility] Performed by: [facility], [address] [place], [place] [address] CLIA ID: [id number] [facility] Glucose [Mass/Vol] 153 mg/dL High 70 - 100 mg/dL [facility] Interpretation and review of laboratory results Abnormal [facility] Performed by: [facility], [address] [place] [address] CLIA ID: [id number] [facility] Glucose [Mass/Vol] 172 mg/dL High 70 - 100 mg/dL [facility] Interpretation and review of laboratory results Abnormal [facility] Performed by: [facility], [address] [place] [address] CLIA ID: [id number] [facility] PROCALCITONIN TESTon 023 PROCALCITONIN 0.05 ng/mL Normal 0.00-0.09 [facility] Comment on above: Result Comment: ORDE R COMMENTS: PCT <0.50 = Low risk of severe sepsis and/or septic shock. PCT >2.00 = High risk of severe sepsis and/or septic shock. Performed By: #### L [id number] ####Rn Office: ASHLEY LLANOS ([id number])[facility] ([address] Procalcitonin Teston 023 Procalcitonin [Mass/Vol] 0.05 ng/mL 0.00 - 0.09 ng/mL [facility] Procalcitonin [Mass/Vol]on 0 03-01-2023 Interpretation and review of laboratory results Normal [facility] [employer] PCT <0.50 = Low risk of severe sepsis and/or septic shock. PCT >2.00 = High risk of severe sepsis and/or septic shock. [facility] Progress Noteon 03-01-2023 Progress Note Physical Therapy Facility/Department: [address] Physical Therapy Initial Evaluation NAME: Radha Sandoval : 1945 Date of Service: 03/01/2023 Discharge Recommendations: Jail Facility, Continue to assess pending progress PT [...] LING (acute kidney injury) (CMS/HCC) ([facility]). Diagnoses of Pyelonephritis, Polypharmacy, Insomnia, unspecified [...] Device: straight cane Transfer Assistance: Independent Active Stopper Setter: Yes Objective Observation/Palpation Posture: Good Observation: PIV [...] from lucy (more content not included)... Normal [facility] Progress Note Occupational Therapy OCCUPATIONAL THERAPY [facility] Initial Evaluation Name/MRN: Radha Sandoval ([id number]) Evaluation Date: 03/01/2023 Date of : 1945 [...] 12/07/2022 Performed by Avery Marshall DO at [facility] ENDOSCOPY EYE SURGERY Bilateral early 90's LUNG REMOVAL, PARTIAL Left ROTATOR CUFF REPAIR Left TONSILLECTOMY Admission Diagnosis: Patient Active Problem List Diagnosis Date Noted LING (acute kidney injury) ([facility]/HCC) ([facility]) 02/28/2023 Acute cystitis with hematuria 02/27/2023 Diarrhea 02/27/2023 Wound of right buttock 02/07/2023 Hypokalemia 12/13/2022 Gastrointestinal bleed 12/07/2022 Other chronic sinusitis 10/25/2022 Urinary frequency 10/04/2022 Chronic left shoulder pain 10/04/2022 Diabetes mellitus due to underlying condition with diabetic chronic kidney disease ([facility]) 06/30/2022 DDD (degenerative disc disease), lumbar 06/30/2022 Chronic right-sided low back pain with right-sided sciatica 06/30/2022 Dyspnea on exertion 09/09/2021 Muscle spasms of both lower extremities 09/09/2021 Lymphedema of both lower extremities 08/05/2021 OAB (overactive bladder) 05/06/2021 Localized edema 10/01/2020 Dependent edema 07/13/2020 Uncontrolled type 2 diabetes mellitus with hyperglycemia ([facility]) 01/16/2020 Morbidly obese ([facility]) 01/16/2020 Vitamin D deficiency 01/16/2020 Moderate episode of recurrent major depressive disorder ([facility]) 06/03/2019 Chronic renal insufficiency, stage III (moderate) ([facility]) 06/03/2019 Hyperlipidemia with target LDL less [...] Responsibilities: Independent Receives Help From: None Active Stopper Setter: Yes Prior Level of Function ADL Assistance: [...] Adls. Upper Ext (more content not included)... [facility] 36on 02-28-2023 36 Noted. Patient sana dy notified. See previous TE if needed. [facility] 36 Called and spoke wit h [...] states that she will be going to [facility]. [facility] 36 S: Christine from [employer] [phone] spoke with [facility] nurse regarding critical lab results B: Glucose A: Blood was drawn yesterday. Glucose was 524, resulting this morning. Verified with repeat analysis. The lab work was ordered by Katia Granados CNP. R: Since office is open, called back line and spoke with Katia Schulz's nurse. Result given. No further instructions to the [facility] nurse. Reason for Disposition Lab or radiology calling with CRITICAL test results Protocols used: PCP Call - [id number] CARECOORDon 02-28-2023 CARECOORD Next Site of Care Admission Date: 02/28/2023 11:30 AM Patient Name: RADHA SANDOVAL Location: [facility] 1E MED SURG/SBH [id number] Date of : 1945 - Placement Information - Referral Type:Retirement/SNF - New Referral ID:[id number] Provider Name:[facility] Address 1:[address] [facility] Address 2: City:[place] Selection Factors:Patient/Family Choice State:[place] Normal [facility] CBC W Auto Differential pane l (Bld)Ordered By: Clayton Lozano on 02-28-2023 Basophils (Bld) [#/Vol] 0.1 10*3/uL 0.0 - 0.2 10*3/uL [employer] Basophils/100 WBC (Bld) 0.5 % 0.0 - 2.0 % [facility] Eosinophils (Bld) [#/Vol] 0.1 10*3/uL 0.0 - 0.5 10*3/uL [facility] Eosinophils/100 WBC (Bld) 0.9 % Low 1.0 - 6.0 % [facility] Erythrocyte distribution width (RBC) [Ratio] 13.8 % 11.5 - 14.5 % [facility] Hematocrit (Bld) [Volume fraction] 36.0 % 35.0 - 47.0 % [facility] Hemoglobin (Bld) [Mass/Vol] 11.5 g/dL Low 11.7 - 16.0 g/dL [facility] Interpretation and review of laboratory results Abnormal [facility] Lymphocytes (Bld) [#/Vol] 0.8 10*3/uL Low 1.0 - 4.3 10*3/uL [facility] Lymphocytes/100 WBC (Bld) 6.4 % Low 20.0 - 40.0 % [facility] MCH (RBC) [Entitic mass] 28.0 pg 26.0 - 34.0 pg [facility] MCHC (RBC) [Mass/Vol] 32.0 % 32.0 - 36.0 % [facility] MCV (RBC) [Entitic vol] 87.5 fL 80.0 - 98.0 fL [facility] Monocytes (Bld) [#/Vol] 1.1 10*3/uL High 0.0 - 0.8 10*3/uL [facility] Monocytes/100 WBC (Bld) 9.0 % 2.0 - 10.0 % [facility] Neutrophils (Bld) [#/Vol] 10.2 10*3/uL High 1.8 - 7.0 10*3/uL [facility] Neutrophils/100 WBC (Bld) 83.2 % High 40.0 - 80.0 % [facility] Nucleated RBC/100 WBC (Bld) [Ratio] 0.0 % [facility] Platelet mean volume (Bld) [Entitic vol] 8.6 fL 7.4 - 12.4 fL [facility] Platelets (Bld) [#/Vol] 278 10*3/uL 140 - 440 10*3/uL [facility] RBC (Bld) [#/Vol] 4.11 10*6/uL 3.8 - 5.20 10*6/uL [facility] WBC (Bld) [#/Vol] 12.3 10*3/uL High 3.6 - 10.7 10*3/uL [facility] CBC WITH AUTO DIFFERENTIALon 02-28-2023 Basophils (Bld) [#/Vol] 0.1 10*3/uL Normal 0.0-0.2 [facility] Comment on above: Performed By: #### L [id number] ####Rn Office: MARTIN REYES ([phone])[facility] [place] (SBHLAB)[address] Basophils/100 WBC (Bld) 0.5 % Normal 0.0-2.0 [facility] Comment on above: Performed By: #### L [id number] ####Rn Office: MARTIN REYES ([phone])[facility] (SBHLAB)[address] [place] [address] Eosinophils (Bld) [#/Vol] 0.1 10*3/uL Normal 0.0-0.5 [facility] Comment on above: Performed By: #### L [id number] ####Rn Office: MARTIN REYES ([phone])[facility] (SBHLAB)[address] [place] [address] Eosinophils/100 WBC (Bld) 0.9 % Low 1.0-6.0 [facility] Comment on above: Performed By: #### L [id number] ####Rn Office: MARTIN REYES ([phone])[facility] [place] (SBHLAB)[address] [place] [address] Erythrocyte distribution width (RBC) [Ratio] 13.8 % Normal 11.5-14.5 [facility] Comment on above: Performed By: #### L [id number] ####Rn Office: MARTIN REYES ([phone])[facility] (SBHLAB)[address] [place] [address] ERYTHROCYTE MEAN CORPUSCULAR HEMOGLOBIN CONCENTRATION (G/DL) BY AUTOMATED 32.0 % Normal 32.0-36.0 [facility] Comment on above: Performed By: #### L [id number] ####Rn Office: MARTIN AMBROSEJOSE R ([phone])[facility] CENTERDiony [place] ([facility])[address] [place] [address] Hematocrit (Bld) [Volume fraction] 36.0 % Normal 35.0-47.0 [facility] Comment on above: Performed By: #### L [id number] ####Rn Office: MARTIN AMBROSEJOSE R ([phone])[facility]ENTERDiony [facility] ([facility])[address] [place] [address] Hemoglobin (Bld) [Mass/Vol] 11.5 g/dL Low 11.7-16.0 [facility] Comment on above: Performed By: #### L [id number] ####Rn Office: MARTIN AMBROSEJOSE R ([phone])[facility] ([facility])[address] [place] [address] Lymphocytes (Bld) [#/Vol] 0.8 10*3/uL Low 1.0-4.3 [facility] Comment on above: Performed By: #### L [id number] ####Rn Office: MARTIN AMBROSEJOSE R ([phone])[facility] ([facility])[address] [place] [address] Lymphocytes/100 WBC (Bld) 6.4 % Low 20.0-40.0 [facility] Comment on above: Performed By: #### L [id number] ####Rn Office: MARTIN AMBROSEJOSE R ([phone])[facility] (SBHLAB)[address] [place] [address] MCH (RBC) [Entitic mass] 28.0 pg Normal 26.0-34.0 [facility] Comment on above: Performed By: #### L [id number] ####Rn Office: MARTIN AMBROSEJOSE R ([phone])[facility] ([facility])[address] [place] [address] MCV (RBC) [Entitic vol] 87.5 fL Normal 80.0-98.0 [facility] Comment on above: Performed By: #### L [id number] ####Rn Office: MARTIN HUANateJOSE R ([phone])[facility] [place] (SBHLAB)[address] Monocytes (Bld) [#/Vol] 1.1 10*3/uL High 0.0-0.8 [facility] Comment on above: Performed By: #### L [id number] ####Rn Office: MARTIN HUAWILFREDO ([phone])[facility] [place] (SBHLAB)[address] Monocytes/100 WBC (Bld) 9.0 % Normal 2.0-10.0 [facility] Comment on above: Performed By: #### L [id number] ####Rn Office: MARTIN HUAWILFREDO ([phone])[facility] [place] (SBHLAB)[address] [place] [address] [place] Neutrophils (Bld) [#/Vol] 10.2 10*3/uL High 1.8-7.0 [facility] Comment on above: Performed By: #### L [id number] ####Rn Office: MARTIN AMBROSEJOSE R ([phone])[facility] [place] (SBHLAB)[address] Neutrophils/100 WBC (Bld) 83.2 % High 40.0-80.0 [facility] Comment on above: Performed By: #### L [id number] ####Rn Office: MARTIN HUAGITAJOSE R ([phone])[facility] [place] (SBHLAB)[address] [place] [address] [place] NRBC (PER 100 WBCS) BY AUTOMATED COUNT 0.0 /100 WBCs Normal 0.0-2.0 [facility] Comment on above: Performed By: #### L [id number] ####Rn Office: MARTIN AMBROSEJOSE R ([phone])[facility] [place] (SBHLAB)[address] Platelet mean volume (Bld) [Entitic vol] 8.6 fL Normal 7.4-12.4 [facility] Comment on above: Performed By: #### L [id number] ####Rn Office: MARTIN REYES ([phone])[facility]ENTERDiony [place] (SBHLAB)[address] PLATELETS (10*3/UL) IN BLOOD AUTOMATED COUNT 278 10*3/uL Normal 140-440 [facility] Comment on above: Performed By: #### L [id number] ####Rn Office: MARTIN REYES ([phone])[facility] (SBHLAB)[address] RBC (Bld) [#/Vol] 4.11 10*6/uL Normal 3.8-5.20 [facility] Comment on above: Performed By: #### L [id number] ####Rn Office: MARTIN REYES ([phone])[facility] (SBHLAB)[address] WBC (Bld) [#/Vol] 12.3 10*3/uL High 3.6-10.7 [facility] Comment on above: Performed By: #### L [id number] ####Rn Office: MARTIN REYES ([phone])[facility]ENTERDion[facility] [place] (SBHLAB)[address] COMPLETE URINALYSISon 2022 BACTERIA (#/HPF) IN URINE Moderate Abnormal Negative [facility] Comment on above: Performed By: #### L [id number] ####Rn Office: MARTIN REYES ([phone])[facility] (SBHLAB)[address] BILIRUBIN, TOTAL PRESENCE IN URINE Negative Normal Negative [facility] Comment on above: Performed By: #### L [id number] ####Rn Office: MARTIN REYES ([phone])[facility] BARBPRESBYTER[facility] S[facility]ENTERN (SBHLAB)[address] Clarity (U) Turbid Abnormal Clear [facility] Comment on above: Performed By: #### L [id number] ####Rn Office: MARTIN REYES ([phone])[facility] ([facility])[address] Color (U) Light Yellow Normal Lt. Yellow [facility] Comment on above: Performed By: #### L [id number] ####Rn Office: MARTIN REYES ([phone])[facility] ([facility])[address] GLUCOSE (MG/DL) IN URINE >1,000 Abnormal Normal (<70) [facility] Comment on above: Performed By: #### L [id number] ####Rn Office: MARTIN REYES ([phone])[facility] ([facility])[address] GRANULAR CASTS (#/LPF) IN URINE 0-2 Abnormal Negative [facility] Comment on above: Performed By: #### L [id number] ####Rn Office: MARTIN REYES ([phone])[facility] ([facility])[address] HEMOGLOBIN PRESENCE IN URINE Negative Normal Negative [facility] Comment on above: Performed By: #### L [id number] ####Rn Office: MARTIN REYES ([phone])[facility] (SBAB)[address] HYALINE CASTS (#/LPF) IN URINE SEDIMENT BY MICROSCOPY 3-5 Abnormal Negative [facility] Comment on above: Performed By: #### L [id number] ####Rn Office: MARTIN REYES ([phone])[facility] ([facility])[address] Ketones Ql (U) Negative Normal Negative [facility] Comment on above: Performed By: #### L [id number] ####Rn Office: MARTIN REYES ([phone])[facility] (SBHLAB)[address] LEUKOCYTE ESTERASE PRESENCE IN URINE BY TEST STRIP 250 Sandeep/uL Abnormal Negative [facility] Comment on above: Performed By: #### L [id number] ####Rn Office: MARTIN HUANateJOSE R ([phone])[facility] (SBHLAB)[address] MUCUS (#/LPF) IN URINE SEDIMENT Few Normal Negative [facility] Comment on above: Performed By: #### L [id number] ####Rn Office: MARITN HUAWILFREDO ([phone])[facility] (HLAB)[address] NITRITE PRESENCE IN URINE Positive Abnormal Negative [facility] Comment on above: Performed By: #### L [id number] ####Rn Office: MARTIN AMBROSEJOSE R ([phone])[facility] (HLAB)[address] pH (U) 5.0 [pH] Normal 5.0-8.0 [facility] Comment on above: Performed By: #### L [id number] ####Rn Office: MARTIN REYES ([phone])[facility] ([facility])[address] Protein (U) [Mass/Vol] 20 mg/dL Abnormal Negative [facility] Comment on above: Performed By: #### L [id number] ####Rn Office: MARTIN REYES ([phone])[facility] (HLAB)[address] [place] [address] [place] RBC (#/HPF) IN URINE SEDIMENT 0-2 Normal 0-2 [facility] Comment on above: Performed By: #### L [id number] ####Rn Office: MARTIN AMBROSEJOSE R ([phone])[facility] (HLAB)[address] Specific gravity (U) [Rel density] 1.020 Normal 1.005-1.030 [facility] Comment on above: Performed By: #### L [id number] ####Rn Office: MARTIN REYES ([phone])[facility] [place] (SBHLAB)[address] SQUAMOUS EPITHELIAL CELLS (#/HPF) IN URINE SEDIMENT 3-5 Normal 3-5 [facility] Comment on above: Performed By: #### L [id number] ####Rn Office: MARTIN REYES ([phone])[facility]A [facility]BPRESBY[facility] (SBHLAB)[address] UROBILINOGEN (MG/DL) IN URINE Normal Normal Normal (0-1) [facility] Comment on above: Performed By: #### L [id number] ####Rn Office: MARTIN AMBROSEJOSE R ([phone])[facility]BPRESBYTER[facility] S[facility]ERN (SBHLAB)[address] WBC (LEUKOCYTE) (#/HPF) IN URINE SEDIMENT 11-25 Abnormal 0-5 [facility] Comment on above: Performed By: #### L [id number] ####Rn Office: MARTIN REYES ([phone])[facility] [place] (SBHLAB)[address] [place] [address] [place] WBC (LEUKOCYTE) CLUMPS (#/HPF) IN URINE SEDIMENT Occasional Abnormal Negative [facility] Comment on above: Performed By: #### L [id number] ####Rn Office: MARTIN REYES ([phone])[facility] [place] (SBHLAB)[address] [place] [address] [place] YEAST (#/HPF) IN URINE Few Abnormal Negative [facility] Comment on above: Performed By: #### L [id number] ####Rn Office: MARTIN REYES ([phone])[facility]BPRES[facility] (SBHLAB)[address] COMPREHENSIVE METABOLIC PANE Real 02-28-2023 Albumin [Mass/Vol] 3.7 g/dL Normal 3.5-5.0 [facility] Comment on above: Performed By: #### L AB17 ####Rn Office: MARTIN REYES ([phone])[facility] [place] (SBHLAB)[address] ALP [Catalytic activity/Vol] 119 U/L Normal 38-126 [facility] Comment on above: Performed By: #### L AB17 ####Rn Office: MARTIN REYES ([phone])[facility] [place] (SBHLAB)[address] ALT [Catalytic activity/Vol] 18 U/L Normal 0-34 [facility] Comment on above: Performed By: #### L AB17 ####Rn Office: MARTIN REYES ([phone])[facility] [place] (SBHLAB)[address] Anion gap [Moles/Vol] 8 mmol/L Normal 3-13 [facility] Comment on above: Performed By: #### L AB17 ####Rn Office: MARTIN REYES ([phone])[facility] [place] (SBHLAB)[address] AST [Catalytic activity/Vol] 24 U/L Normal 15-46 [facility] Comment on above: Performed By: #### L AB17 ####Rn Office: MARTIN REYES ([phone])[facility] [place] (SBHLAB)[address] Bilirubin [Mass/Vol] 0.5 mg/dL Normal 0.2-1.3 [facility] Comment on above: Performed By: #### L AB17 ####Rn Office: MARTIN REYES ([phone])[facility] [place] (SBHLAB)[address] [place] [address] [place] Calcium [Mass/Vol] 8.4 mg/dL Normal 8.4-10.4 [facility] Comment on above: Performed By: #### L AB17 ####Rn Office: MARTIN REYES ([phone])[facility] [place] (SBHLAB)[address] Chloride [Moles/Vol] 96 mmol/L Low 98-107 [facility] Comment on above: Performed By: #### L AB17 ####Rn Office: MARTIN REYES ([phone])[facility] CENTERDiony [place] (SBHLAB)[address] CO2 [Moles/Vol] 26 mmol/L Normal 22-30 [facility] Comment on above: Performed By: #### L AB17 ####Rn Office: MARTIN REYES ([phone])[facility]ENTERDion[facility] (SBHLAB)[address] Creatinine [Mass/Vol] 1.22 mg/dL High 0.52-1.04 [facility] Comment on above: Performed By: #### L AB17 ####Rn Office: MARTIN REYES ([phone])[facility]ENTERDiony [place] (SBHLAB)[address] [place] [address] GLOMERULAR FILTRATION RATE ML/MIN/1.73 SQ M.PREDICTED 45.2 mL/min/1.73m*2 Low >60.0 [facility] Comment on above: Result Comment: Calc ulation based on the Chronic Kidney Disease Epidemiology Collaboration (CKD-EPI) equation refit without adjustment for race Performed By: #### L AB17 ####Rn Office: MARTIN REYES ([phone])[facility] CENTERDiony HEBert (SBHLAB)[address] [place] [address] [place] Glucose [Mass/Vol] 483 mg/dL Critically high 70-100 [facility] Comment on above: Performed By: #### L AB17 ####Rn Office: MARTIN REYES ([phone])[facility] (SBHLAB)[address] Potassium [Moles/Vol] 4.0 mmol/L Normal 3.5-5.1 [facility] Comment on above: Performed By: #### L AB17 ####Rn Office: MARTIN REYES ([phone])[facility]ENTERDiony [facility]OS[facility] (SBHLAB)[address] Protein [Mass/Vol] 6.6 g/dL Normal 6.3-8.2 [facility] Comment on above: Performed By: #### L AB17 ####Rn Office: MARTIN REYES ([phone])[facility]BYTER[facility] (SBHLAB)[address] Sodium [Moles/Vol] 130 mmol/L Low 135-145 [facility] Comment on above: Performed By: #### L AB17 ####Rn Office: MARTIN REYES ([phone])[facility] (SB[facility])[address] Urea nitrogen [Mass/Vol] 20 mg/dL High 7-17 [facility] Comment on above: Performed By: #### L AB17 ####Rn Office: MARTIN REYES ([phone])[facility] (SBHLAB)[address] ABDOMEN PELVIS WO IV CONT [facility] 02-28-2023 CT ABDOMEN PELVIS WO IV CONTRAST Patient Name: RADHA SANDOVAL : 1945 [facility]#: [id number] Exam Date/Time: 02/28/2023 13:07 Procedure: CT ABDOMEN [...] back pain and burning with urination Normal [facility] CT Abdomen WO contraston Colonic diverticulosis without evidence of acute diverticulitis. Bilateral renal cysts, the largest cyst is on the left measuring up to 4.8 cm. Report Dictated on Electronically Signed By: Jb Ahmadi DO Electronically Signed Date/Time: 02/28/2023 1:44 PM EDT [facility] 1945 [id number] Exam Date/Time: 02/28/2023 13:07 Procedure: CT ABDOMEN [...] the aorta and iliac arteries are noted. [facility] Jb Ahmadi DO - 02/28/2023 [...] Electronically Signed Date/Time: 02/28/2023 1:44 PM EDT [facility] Radiology Study observation (narrative) [facility] alth CT Abdomen WO contrastOrdere d By: Jb Ahmadi on 02-28-2023 [facility] Work Phone: Comprehensive metabolic 1998 panelOrdered By: Azucena Li on 02-28-2023 Albumin [Mass/Vol] 3.7 g/dL 3.5 - 5.0 g/dL [facility] ALP [Catalytic activity/Vol] 119 U/L 38 - 126 U/L [facility] ALT [Catalytic activity/Vol] 18 U/L 0 - 34 U/L [facility] Anion gap [Moles/Vol] 8 mmol/L 3 - 13 mmol/L [facility] AST [Catalytic activity/Vol] 24 U/L 15 - 46 U/L [facility] [facility] Bilirubin [Mass/Vol] 0.5 mg/dL 0.2 - 1 .3 mg/dL [facility] Calcium [Mass/Vol] 8.4 mg/dL 8.4 - 10. 4 mg/dL [facility] Chloride [Moles/Vol] 96 mmol/L Low 98 - 10 7 mmol/L [facility] CO2 [Moles/Vol] 26 mmol/L 22 - 30 mmol/L [facility] Creatinine [Mass/Vol] 1.22 mg/dL High 0.52 - 1.04 mg/dL [facility] GFR/1.73 sq M.predicted MDRD (S/P/Bld) [Vol rate/Area] 45.2 mL/min/{1.73_m2} Low - PINF [facility] Comment on above: Calculation based on the Chronic Kidney Disease Epidemiology Collaboration (CKD-EPI) equation refit without adjustment for race Glucose [Mass/Vol] 483 mg/dL Critically high 70 - 1 00 mg/dL [facility] Interpretation and review of laboratory results Abnormal [facility] Potassium [Moles/Vol] 4.0 mmol/L 3.5 - 5.1 mmol/L [facility] Protein [Mass/Vol] 6.6 g/dL 6.3 - 8.2 g/dL [facility] Sodium [Moles/Vol] 130 mmol/L Low 135 - 145 mmol/L [facility] Urea nitrogen [Mass/Vol] 20 mg/dL High 7 - 17 mg/dL [facility] ED Nursing Noteon 02-28-2023 ED Nursing Note Pt presents for admission per her PCP. Was sent to get kidneys evaluated per pt. Pt endorses lower back pain and burning and pain with urination. Was recently admitted. [facility] ED Provider Noteon 3 ED Provider Note [facility] 1E MED SURG EMERGENCY DEPARTMENT [...] 12/07/2022 Performed by Avery Marshall DO at [facility] ENDOSCOPY EYE SURGERY Bilateral early [...] shoulder pain ergocalciferol (Vitamin D-2) 1.25 MG (45752 UT) capsule Take 1 capsule (1.25 mg) [...] Depression Moth (more content not included)... Normal [facility] POCT glucose meteron 023 Glucose [Mass/Vol] 245 mg/dL High 70 - 100 mg/dL [facility] Interpretation and review of laboratory results Abnormal [facility] Performed by: [facility], [address] [place] [address] CLIA ID: [id number] [facility] Glucose [Mass/Vol] 197 mg/dL High 70 - 100 mg/dL [facility] Interpretation and review of laboratory results Abnormal [facility] Performed by: [facility], [address] [place] [address] CLIA ID: [id number] [facility] URINE CULTUREon 02-28-2023 Bacteria identified Cx Nom [...] Non-susceptible NO = No Interpretation ] Normal [facility] Comment on above: Performed By: #### L [id number] ####Rn Office: ASHLEY LLANOS ([phone])[facility] ([facility] [place] [address] Urinalysis complete panel (U )on 02-28-2023 Bacteria LM.HPF (Urine sed) [#/Area] Moderate Abnormal Negative /HPF [facility] Bilirubin Ql (U) Negative Negative mg/dL [facility] Clarity (U) Turbid Abnormal Clear [facility] Color (U) Light Yellow Lt. Yellow [facility] Epithelial cells.squamous LM.HPF (Urine sed) [#/Area] 3-5 [facility] h Glucose Ql (U) >1,000 Abnormal Normal (<70) mg/dL [facility] Granular casts LM.HPF (Urine sed) [#/Area] 0-2 Abnormal Negative /LPF [facility] Hemoglobin Ql (U) Negative Negative mg/dL [facility] Hyaline casts Auto (Urine sed) [#/Area] 3-5 Abnormal Negative /LPF [facility] Interpretation and review of laboratory results Abnormal [facility] Ketones (U) [Mass/Vol] Negative Negat katherine mg/dL [facility] Leukocyte clumps LM.HPF (Urine sed) [#/Area] Occasional Abnormal Negative /HPF [facility] Leukocyte esterase Test strip Ql (U) 250 Abnormal Negative Sandeep/uL [facility] Mucus LM.HPF (Urine sed) [#/Area] Few Negative /LPF [facility] Nitrite Ql (U) Positive Abnormal Negative [facility] th pH (U) 5.0 [pH] 5.0 - 8.0 pH [facility] Protein (U) [Mass/Vol] 20 mg/dL Abnormal Negative [facility] RBC LM.HPF (Urine sed) [#/Area] 0-2 [facility] Specific gravity (U) [Rel density] 1.020 1.005 - 1.030 [facility] Urobilinogen (U) [Mass/Vol] Normal Normal (0-1) mg/dL [facility] WBC LM.HPF (Urine sed) [#/Area] 11-25 Abnormal [facility] Yeast.budding LM.HPF (Urine sed) [#/Area] Few Abnormal Negative /HPF [facility] 36on 02-27-2023 36 Rx sent Normal [facility] Glucose (Bld) [Mass/Vol]on 0 02-27-2023 Glucose Blood, POC 494 mg/dL [facility] Interpretation and review of laboratory results Abnormal [facility] Office Visiton 02-27-2023 Follow-up visit [id number] Radha Sandoval 1945 F Date Provider Department Center 02/27/2023 [facility] Family History Problem Relation Age of Onset Mental illness Mother Depression Mother Heart disease Father High Blood Pressure Father Asthma Father Hypertension Father Diabetes Brother Family Status - Relation Status Age at Mother Father Brother Level of Service:34615 [place] OFFICE/OUTPATIENT ESTABLISHED MOD MDM 30-39 MIN Reason for Visit and Comments: Blood Sugar Problem [007512] Knee Pain [487652] Diarrhea [35] - Back Pain [12] Normal [facility] Progress Noteon 02-27-2023 Progress Note No fever or chills, abdomen soft. Unknown etiology. Will check CBC and CMP. Consider stool culture if symptoms continue Normal [facility] Progress Note We will check CMP today Normal [facility] Progress Note UA positive nitrites and leuks moderate blood, will start antibiotic therapy sent for culture Normal [facility] Progress Note Controlled. Continue amlodipine 10 mg daily and lisinopril 40 mg daily Normal [facility] Progress Note Will check TSH today due to recent fatigue Normal [facility] Progress Note Patient has not followed up with wound center upon visualization today wound unchanged, advised to keep area as clean as possible with frequent changes of incontinence pads Normal [facility] Progress Note Uncontrolled. Patien t having difficulties with compliance. Continue insulin regimen. Possible increased glucose due to urinary tract infection we will treat Normal [facility] Progress Note 02/27/2023 Radha Sandoval (: 1945) [...] her blood sugar today, noted In office [id number] testing 494. Urination Increased frequency, dysuria intermittently. [...] out soon. Has Maximino (son) work in [employer]. He may be able to help her [...] Lopez MD ergocalciferol (Vitamin D-2) 1.25 MG (88527 UT) capsule Take 1 capsule (1.25 mg) [...] by mouth daily. 02/07/23 Yes Katiajareth Granados AUTOMATION TENDER - JORGE PARoxetine (Paxil) 20 MG tablet Take 1 tablet (20 mg) by mouth every morning. 12/08/22 Yes Katiaesther Granados AUTOMATION TENDER - FACER OPERATOR potassium chlor (more content not included)... [facility] Progress Note Please see if she rodriguez s gone to ER. Call and encourage her to go if she hasn't yet. Normal [facility] Progress Note Patient was identifi ed by name and Date of . POCT glucose at [facility]-provider notified. [facility] Urinalysis macro (dipstick) panel (U)on 02-27-2023 Bilirubin, UA Moderate [facility], [facility] Small [facility] Glucose, UA >1,000 [facility] Interpretation and review of laboratory results Abnormal [facility] Ketones, UA Trace [facility] Leukocytes, UA Moderate [facility] th Nitrite, UA Positive [facility] pH, UA 6.0 [facility] Protein, UA Trace [facility] Spec Grav, UA 1.010 [facility], UA 0.[facility] He alth [facility] 36on 02-24-2023 36 S: Patient spoke rené grover [facility] nurse regarding: Patient needs refill on Novolog. She is out of medication. B: Onset of symptoms/concern: today A: Pt states she needs refill of her Novolog pen, she is out. R: Pt is aware of message to provider for refill. Allergies and pharmacy verified. body recall instructor paged. Per YAZMIN Gracia Novolog Flexpen 16 units QID, 30 days, 0 refills. Called to [facility], order pended on chart. Reason for Disposition [1] Prescription refill request for ESSENTIAL medicine (i.e., likelihood of harm to patient if not taken) AND [2] triager unable to refill per department policy Protocols used: Medication Refill and Renewal [id number] 36 Patient is out of medication. [...] prior to picking up the medication: Yes [place] [phone] Noted. Agree with disposition. [place] [phone] Sent a secure chat edie [employer] she is working on the [employer]. [facility] 36 S: Patient called [facility] clinical access [place] with complaint of elevated blood sugar B: [...] diabetes) Protocols used: Diabetes - High Blood [id number] 36on 02-23-2023 36 faxed [place] [address] Not quite sure what that was all about but I guess I did which she told me to do instructions were kind of difficult to understand [place] [address] Re-printing and plac ing on your desk, need to resign next to original signature with the date and then initial next to Faby with the date. [facility] 36 Faxed on 02/17/23 [facility] 36 S: Patient spoke wit h [facility] nurse regarding High Blood Sugar number [...] seen Protocols used: Diabetes - High Blood [id number] [facility] 36 Name of caller: Paula Contact phone number: [phone] Relationship to Patient: [facility] Diabetic Provider: Dr. Lopez Practice: [place] [facility] Chief Complaint/Reason for Call: Paula from [facility] Diabetic states that they did receive Rx for Freestyle Evin, however it was not accepted due to the correction on the sign date. Paula is requesting that we please resend the Rx, have Provider resign it, and have the Drs initial next to the date as well. Rx can be sent to #[phone]. Please advise. Best time of day caller can be reached: Any Patient advised that office/PCP has 24-48 business hours to return their call: No [facility] 36on 02-17-2023 36 Noted. Fax put in burt x to go out [facility] 36 Name of caller: Colette bert Contact phone number: [phone] Relationship to Patient: [facility] Provider: Dr. Lopez Practice: [facility] Chief Complaint/Reason for Call: Caller wanted to follow up regarding request for pt diabetic continuous glucose meter that was faxed on 02.02.2023. Caller stated they received the Rx but the Rx was incomplete. Caller would like to ask office to re write with doctors initial and fax again to: [phone]. Please advise. Thank you. Best time of day caller can be reached: Any Patient advised that office/PCP has 24-48 business hours to return their call: Yes [facility] PATINSon 02-15-2023 PATINS Return in 1 week rené Magallanes If you have any questions or concerns, please call our wound center at [phone] or [phone]. Offloading Try to avoid pressure and sheering [...] as diet tolerates, to help improve healing. [facility] 36on 02-14-2023 36 Notified. [place] [phone] Rx sent [place] [address] Spoke with patient s he found the bottle and it is the baclofen [place] [address] The only medications on her list and on her history it would have been used for cramps in her legs would have been her Mirapex and that 1 was just refilled in December for baclofen which is an actual muscle relaxer and that was refilled in December other than those I do not know what she would be talking about [place] [address] S: Patient spoke rené grover [facility] nurse regarding out of medication for [...] policy Protocols used: Medication Refill and Renewal [id number] [facility] Office Visiton 02-07-2023 Follow-up visit [id number] Radha Sandoval 1945 F Date Provider Department Center 02/07/2023 [id number] [facility]RANADOS [facility] Family History Problem Relation Age of Onset Mental illness Mother Depression Mother Heart disease Father High Blood Pressure Father Asthma Father Hypertension Father Diabetes Brother Family Status - Relation Status Age at Mother Father Brother Level of Service:41519 [place] OFFICE/OUTPATIENT ESTABLISHED LOW MDM 20-29 MIN Reason for Visit and Comments: Sore [984874] - On buttocks-getting worse Normal [facility] Progress Noteon 02-07-2023 Progress Note Chronic. Refill mobic. Normal [facility] Progress Note Avoid pressure to ar ea, avoid friction, keep area as dry as possible. Refer to wound clinic. Normal [facility] Progress Note 02/07/2023 Radha Sandoval (: 1945) is a 77 y.o. female , Established patient, here for evaluation of the following chief complaint(s): Sore (On buttocks-getting worse) ASSESSMENT/PLAN: 1. Wound of right buttock, subsequent encounter Assessment & Plan: Avoid pressure to area, avoid friction, keep area as dry as possible. Refer to wound clinic. Orders: - [facility] Wound Care/[facility] 2. Chronic left shoulder [...] Arriaza CNP ergocalciferol (Vitamin D-2) 1.25 MG (72775 UT) capsule Take 1 capsule (1.25 mg) [...] (40 mg) by mouth daily. 12/08/22 ELSA Arrizaa CNP PARoxetine (Paxil) 20 MG tablet Take [...] note. ELSA Arriaza CNP 02/07/2023 12:53 PM [facility] Progress Note Patient was identifi ed by name and Date of . PHARMACY VERIFIED WITH [facility] [place]. Normal [facility] 36on 02-06-2023 36 S: Pt calling [facility] [...] splenectomy, organ transplant, chronic steroids) Protocols used: [id number] Normal [facility] Basic metabolic 1998 panelon 12-07-2022 Anion gap [Moles/Vol] 4 mmol/L 3 - 13 mmol/L [facility] Calcium [Mass/Vol] 7.2 mg/dL Low 8.4 - 10. 4 mg/dL [facility] Chloride [Moles/Vol] 110 mmol/L High 98 - 10 7 mmol/L [facility] CO2 [Moles/Vol] 24 mmol/L 22 - 30 mmol/L [facility] Creatinine [Mass/Vol] 0.63 mg/dL 0.52 - 1.04 mg/dL [facility] GFR/1.73 sq M.predicted MDRD (S/P/Bld) [Vol rate/Area] - PINF [facility] Comment on above: Calculation based on the Chronic Kidney Disease Epidemiology Collaboration (CKD-EPI) equation refit without adjustment for race Glucose [Mass/Vol] 182 mg/dL High 70 - 100 mg/dL [facility] Interpretation and review of laboratory results Abnormal [facility] Potassium [Moles/Vol] 3.3 mmol/L Low 3.5 - 5.1 mmol/L [facility] Sodium [Moles/Vol] 137 mmol/L 135 - 145 mmol/L [facility] Urea nitrogen [Mass/Vol] 14 mg/dL 7 - 17 mg/dL [facility] CBC panel Auto (Bld)Ordered By: Wendy Bruce on 12-07-2022 Erythrocyte distribution width (RBC) [Ratio] 13.8 % 11.5 - 14.5 % [facility] Hematocrit (Bld) [Volume fraction] 33.0 % Low 35.0 - 47.0 % [facility] Hemoglobin (Bld) [Mass/Vol] 10.6 g/dL Low 11.7 - 16.0 g/dL [facility] Interpretation and review of laboratory results Abnormal [facility] MCH (RBC) [Entitic mass] 29.3 pg 26.0 - 34.0 pg [facility] MCHC (RBC) [Mass/Vol] 32.2 % 32.0 - 36.0 % [facility] MCV (RBC) [Entitic vol] 90.8 fL 80.0 - 98.0 fL [facility] Platelet mean volume (Bld) [Entitic vol] 8.1 fL 7.4 - 12.4 fL [facility] Platelets (Bld) [#/Vol] 230 10*3/uL 140 - 440 10*3/uL [facility] RBC (Bld) [#/Vol] 3.63 10*6/uL Low 3.8 - 5.20 10*6/uL [facility] WBC (Bld) [#/Vol] 10.7 10*3/uL 3.6 - 10.7 10*3/uL [facility] Comprehensive metabolic 1998 panelon 12-07-2022 Albumin [Mass/Vol] 3.4 g/dL Low 3.5 - 5.0 g/dL [facility] ALP [Catalytic activity/Vol] 96 U/L 38 - 126 U/L [facility] ALT [Catalytic activity/Vol] 15 U/L 0 - 34 U/L [facility] Anion gap [Moles/Vol] 4 mmol/L 3 - 13 mmol/L [facility] AST [Catalytic activity/Vol] 40 U/L 15 - 46 U/L [facility] Bilirubin [Mass/Vol] 0.5 mg/dL 0.2 - 1 .3 mg/dL [facility] Calcium [Mass/Vol] 7.5 mg/dL Low 8.4 - 10. 4 mg/dL [facility] Chloride [Moles/Vol] 105 mmol/L 98 - 10 7 mmol/L [facility] CO2 [Moles/Vol] 27 mmol/L 22 - 30 mmol/L [facility] Creatinine [Mass/Vol] 0.76 mg/dL 0.52 - 1.04 mg/dL [facility] GFR/1.73 sq M.predicted MDRD (S/P/Bld) [Vol rate/Area] 79.8 mL/min/{1.73_m2} - PINF [facility] Comment on above: Calculation based on the Chronic Kidney Disease Epidemiology Collaboration (CKD-EPI) equation refit without adjustment for race Glucose [Mass/Vol] 188 mg/dL High 70 - 100 mg/dL [facility] Interpretation and review of laboratory results Abnormal [facility] Potassium [Moles/Vol] 3.4 mmol/L Low 3.5 - 5.1 mmol/L [facility] Protein [Mass/Vol] 6.2 g/dL Low 6.3 - 8.2 g/dL [facility] Sodium [Moles/Vol] 136 mmol/L 135 - 145 mmol/L [facility] Urea nitrogen [Mass/Vol] 10 mg/dL 7 - 17 mg/dL [facility] Hemoglobin (Bld) [Mass/Vol]O rdered By: Humphrey Juarez on 12-07-2022 Hematocrit (Bld) [Volume fraction] 33.8 % Low 35.0 - 47.0 % [facility] Interpretation and review of laboratory results Abnormal [facility] Hemoglobin (Bld) [Mass/Vol]o n 12-07-2022 Hematocrit (Bld) [Volume fraction] 33.6 % Low 35.0 - 47.0 % [facility] Interpretation and review of laboratory results Abnormal [facility] Hemoglobin (Bld) [Mass/Vol]O rdered By: Rosey Viera on 12-07-2022 Hematocrit (Bld) [Volume fraction] 32.0 % Low 35.0 - 47.0 % [facility] Interpretation and review of laboratory results Abnormal [facility] Laboratory - Chemistry and C hemistry - challengeon 12-07-2022 Magnesium [Mass/Vol] 1.3 mg/dL Low 1.6 - 2 .3 mg/dL [facility] Glucose [Mass/Vol] 179 mg/dL High 70 - 100 mg/dL [facility] Glucose [Mass/Vol] 158 mg/dL High 70 - 100 mg/dL [facility] Glucose [Mass/Vol] 160 mg/dL High 70 - 100 mg/dL [facility] Laboratory - Hematology and Cell countsOrdered By: Humphrey Juarez on 12-07-2022 Hemoglobin (Bld) [Mass/Vol] 10.9 g/dL Low 11.7 - 16.0 g/dL [facility] Laboratory - Hematology and Cell countson 12-07-2022 Hemoglobin (Bld) [Mass/Vol] 11.0 g/dL Low 11.7 - 16.0 g/dL [facility] Laboratory - Hematology and Cell countsOrdered By: Rosey Viera on 12-07-2022 Hemoglobin (Bld) [Mass/Vol] 10.4 g/dL Low 11.7 - 16.0 g/dL [facility] Magnesium [Mass/Vol]on 12-07 Interpretation and review of laboratory results Abnormal [facility] No Panel Informationon 12-07 Interpretation and review of laboratory results Abnormal [facility] Performed by: [facility], [address] [place] [address] CLIA ID: [id number] [facility] Interpretation and review of laboratory results Abnormal [facility] Performed by: [facility], [address] [place] [address] CLIA ID: [id number] [facility] Interpretation and review of laboratory results Abnormal [facility] Performed by: [facility], [address] [place] [address] CLIA ID: [id number] [facility] Basic metabolic 1998 panelon 12-06-2022 Anion gap [Moles/Vol] 2 mmol/L Low 3 - 13 mmol/L [facility] Calcium [Mass/Vol] 7.9 mg/dL Low 8.4 - 10. 4 mg/dL [facility] Chloride [Moles/Vol] 105 mmol/L 98 - 10 7 mmol/L [facility] CO2 [Moles/Vol] 26 mmol/L 22 - 30 mmol/L [facility] Creatinine [Mass/Vol] 0.68 mg/dL 0.52 - 1.04 mg/dL [facility] GFR/1.73 sq M.predicted MDRD (S/P/Bld) [Vol rate/Area] 88.7 mL/min/{1.73_m2} - PINF [facility] Comment on above: Calculation based on the Chronic Kidney Disease Epidemiology Collaboration (CKD-EPI) equation refit without adjustment for race Glucose [Mass/Vol] 169 mg/dL High 70 - 100 mg/dL [facility] Interpretation and review of laboratory results Abnormal [facility] Potassium [Moles/Vol] 3.5 mmol/L 3.5 - 5.1 mmol/L [facility] Sodium [Moles/Vol] 134 mmol/L Low 135 - 145 mmol/L [facility] Urea nitrogen [Mass/Vol] 18 mg/dL High 7 - 17 mg/dL [facility] CBC panel Auto (Bld)Ordered By: Donavan Hernandez on 12-06-2022 Erythrocyte distribution width (RBC) [Ratio] 13.7 % 11.5 - 14.5 % [facility] Hematocrit (Bld) [Volume fraction] 33.4 % Low 35.0 - 47.0 % [facility] Hemoglobin (Bld) [Mass/Vol] 11.1 g/dL Low 11.7 - 16.0 g/dL [facility] Interpretation and review of laboratory results Abnormal [facility] MCH (RBC) [Entitic mass] 29.7 pg 26.0 - 34.0 pg [facility] MCHC (RBC) [Mass/Vol] 33.2 % 32.0 - 36.0 % [facility] MCV (RBC) [Entitic vol] 89.5 fL 80.0 - 98.0 fL [facility] Platelet mean volume (Bld) [Entitic vol] 8.4 fL 7.4 - 12.4 fL [facility] Platelets (Bld) [#/Vol] 233 10*3/uL 140 - 440 10*3/uL [facility] RBC (Bld) [#/Vol] 3.73 10*6/uL Low 3.8 - 5.20 10*6/uL [facility] WBC (Bld) [#/Vol] 9.8 10*3/uL 3.6 - 10.7 10*3/uL [facility] Hemoglobin (Bld) [Mass/Vol]o n 12-06-2022 Hematocrit (Bld) [Volume fraction] 36.6 % 35.0 - 47.0 % [facility] Interpretation and review of laboratory results Normal [facility] Hematocrit (Bld) [Volume fraction] 34.3 % Low 35.0 - 47.0 % [facility] Interpretation and review of laboratory results Abnormal [facility] Hemoglobin (Bld) [Mass/Vol]O rdered By: Lizeth Mckeon on 12-06-2022 Hematocrit (Bld) [Volume fraction] 33.9 % Low 35.0 - 47.0 % [facility] Interpretation and review of laboratory results Abnormal [facility] Iron and Iron binding capaci ty panelon 12-06-2022 Interpretation and review of laboratory results Normal [facility] [facility] Iron [Mass/Vol] 87 ug/dL 37 - 170 ug/dL [facility] Iron binding capacity [Mass/Vol] 298 ug/dL 261 - 497 ug/dL [facility] Iron saturation [Mass fraction] 29 % 15 - 50 % [facility] Laboratory - Chemistry and C hemistry - challengeon 12-06-2022 Glucose [Mass/Vol] 183 mg/dL High 70 - 100 mg/dL [facility] Glucose [Mass/Vol] 258 mg/dL High 70 - 100 mg/dL [facility] Glucose [Mass/Vol] 238 mg/dL High 70 - 100 mg/dL [facility] Glucose [Mass/Vol] 160 mg/dL High 70 - 100 mg/dL [facility] Laboratory - Coagulationon 0 12-06-2022 aPTT Coag (PPP) [Time] 25.4 s 20.0 - 30.5 s [facility] INR Coag (PPP) [Relative time] 1.0 {INR} 0.9 - 1.1 [facility] Comment on above: Recommended Anticoag ulant Therapy: [...] 11.2 s 9.0 - 1 2.0 s [facility] Laboratory - Hematology and Cell countson 12-06-2022 Hemoglobin (Bld) [Mass/Vol] 12.0 g/dL 11.7 - 16.0 g/dL [facility] [employer] Hemoglobin (Bld) [Mass/Vol] 11.3 g/dL Low 11.7 - 16.0 g/dL [facility] Laboratory - Hematology and Cell countsOrdered By: Lizeth Mckeon on 12-06-2022 Hemoglobin (Bld) [Mass/Vol] 11.0 g/dL Low 11.7 - 16.0 g/dL [facility] No Panel Informationon 12-06 Interpretation and review of laboratory results Abnormal [facility], [address] [facility] [address] CLIA ID: [id number] [facility] Interpretation and review of laboratory results Abnormal [facility]formed by: [facility], [address] [facility] [address] CLIA ID: [id number] [facility] Interpretation and review of laboratory results Abnormal [facility]formed by: [facility], [address] [facility] [address] CLIA ID: [id number] [facility] Interpretation and review of laboratory results Normal [facility] Interpretation and review of laboratory results Abnormal [facility] Performed by: [facility], [address] [facility] [address] CLIA ID: [id number] [facility] Basic metabolic 1998 panelon 12-05-2022 Anion gap [Moles/Vol] 5 mmol/L 3 - 13 mmol/L [facility] Calcium [Mass/Vol] 8.7 mg/dL 8.4 - 10. 4 mg/dL [facility] Chloride [Moles/Vol] 102 mmol/L 98 - 10 7 mmol/L [facility] CO2 [Moles/Vol] 29 mmol/L 22 - 30 mmol/L [facility] Creatinine [Mass/Vol] 0.91 mg/dL 0.52 - 1.04 mg/dL [facility] GFR/1.73 sq M.predicted MDRD (S/P/Bld) [Vol rate/Area] 64.3 mL/min/{1.73_m2} - PINF [facility] Comment on above: Calculation based on the Chronic Kidney Disease Epidemiology Collaboration (CKD-EPI) equation refit without adjustment for race Glucose [Mass/Vol] 260 mg/dL High 70 - 100 mg/dL [facility] Interpretation and review of laboratory results Abnormal [facility] Potassium [Moles/Vol] 4.0 mmol/L 3.5 - 5.1 mmol/L [facility] Sodium [Moles/Vol] 136 mmol/L 135 - 145 mmol/L [facility] Urea nitrogen [Mass/Vol] 26 mg/dL High 7 - 17 mg/dL [facility] Blood type and Crossmatch pa rodney (Bld)on 12-05-2022 ABO group Nom (Bld) O [facility] Blood group antibody screen GEL Ql Negative [facility] D Ag Ql (RBC) Positive [facility] CBC W Auto Differential pane l (Bld)Ordered By: Clayton Lozano on 12-05-2022 Basophils (Bld) [#/Vol] 0.1 10*3/uL 0.0 - 0.2 10*3/uL [facility] Basophils/100 WBC (Bld) 0.7 % 0.0 - 2.0 % [facility] Eosinophils (Bld) [#/Vol] 0.2 10*3/uL 0.0 - 0.5 10*3/uL [facility] Eosinophils/100 WBC (Bld) 2.0 % 1.0 - 6.0 % [facility] Erythrocyte distribution width (RBC) [Ratio] 13.9 % 11.5 - 14.5 % [facility] Hematocrit (Bld) [Volume fraction] 39.3 % 35.0 - 47.0 % [facility] Hemoglobin (Bld) [Mass/Vol] 12.9 g/dL 11.7 - 16.0 g/dL [facility] Interpretation and review of laboratory results Abnormal [facility] Lymphocytes (Bld) [#/Vol] 1.8 10*3/uL 1.0 - 4.3 10*3/uL [facility] Lymphocytes/100 WBC (Bld) 14.3 % Low 20.0 - 40.0 % [facility] MCH (RBC) [Entitic mass] 29.5 pg 26.0 - 34.0 pg [facility] MCHC (RBC) [Mass/Vol] 32.8 % 32.0 - 36.0 % [facility] MCV (RBC) [Entitic vol] 89.8 fL 80.0 - 98.0 fL [facility] Monocytes (Bld) [#/Vol] 1.0 10*3/uL High 0.0 - 0.8 10*3/uL [facility] Monocytes/100 WBC (Bld) 7.6 % 2.0 - 10.0 % [facility] Neutrophils (Bld) [#/Vol] 9.4 10*3/uL High 1.8 - 7.0 10*3/uL [facility] Neutrophils/100 WBC (Bld) 75.4 % 40.0 - 80.0 % [facility] Nucleated RBC/100 WBC (Bld) [Ratio] 0.1 % [facility] Platelet mean volume (Bld) [Entitic vol] 8.6 fL 7.4 - 12.4 fL [facility] Platelets (Bld) [#/Vol] 271 10*3/uL 140 - 440 10*3/uL [facility] RBC (Bld) [#/Vol] 4.37 10*6/uL 3.8 - 5.20 10*6/uL [facility] WBC (Bld) [#/Vol] 12.5 10*3/uL High 3.6 - 10.7 10*3/uL [facility] CBC panel Auto (Bld)on 12-05 Erythrocyte distribution width (RBC) [Ratio] 13.7 % 11.5 - 14.5 % [facility] Hematocrit (Bld) [Volume fraction] 37.9 % 35.0 - 47.0 % [facility] Hemoglobin (Bld) [Mass/Vol] 12.3 g/dL 11.7 - 16.0 g/dL [facility] Interpretation and review of laboratory results Abnormal [facility] MCH (RBC) [Entitic mass] 29.2 pg 26.0 - 34.0 pg [facility] MCHC (RBC) [Mass/Vol] 32.4 % 32.0 - 36.0 % [facility] MCV (RBC) [Entitic vol] 90.1 fL 80.0 - 98.0 fL [facility] Platelet mean volume (Bld) [Entitic vol] 8.3 fL 7.4 - 12.4 fL [facility] Platelets (Bld) [#/Vol] 244 10*3/uL 140 - 440 10*3/uL [facility] RBC (Bld) [#/Vol] 4.21 10*6/uL 3.8 - 5.20 10*6/uL [facility] WBC (Bld) [#/Vol] 11.6 10*3/uL High 3.6 - 10.7 10*3/uL [facility] CT Abdomen and Pelvis W cont rast Anna 12-05-2022 The etiology of the symptoms is not certain. No extravasation of contrast visualized. Report Dictated on Electronically Signed By: Toñito Chandra Electronically Signed Date/Time: 12/05/2022 3:55 PM EDT [facility] [employer] Patient Name: RADHA SANDOVAL : 1945 [...] tissues. Abdominal wall:Ventral hernia fat only. [facility]Y [facility] Toñito Chandra MD - 12/05/2022 [...] Electronically Signed Date/Time: 12/05/2022 3:55 PM EDT [facility] Radiology Study observation (narrative) [facility] alth CT Abdomen and Pelvis W cont rast IVOrdered By: Toñito Chandra on 12-05-2022 [facility] [employer] Work Phone: Hemoglobin (Bld) [Mass/Vol]o n 12-05-2022 Interpretation and review of laboratory results Normal [facility] Hepatic function 2000 panelo n 12-05-2022 Albumin [Mass/Vol] 4.0 g/dL 3.5 - 5.0 g/dL [facility] ALP [Catalytic activity/Vol] 107 U/L 38 - 126 U/L [facility] ALT [Catalytic activity/Vol] 16 U/L 0 - 34 U/L [facility] AST [Catalytic activity/Vol] 25 U/L 15 - 46 U/L [facility] [employer] Bilirubin [Mass/Vol] 0.9 mg/dL 0.2 - 1 .3 mg/dL [facility] Bilirubin.conjugated [Mass/Vol] 0.0 mg/dL 0.0 - 0.3 mg/dL [facility] Protein [Mass/Vol] 7.2 g/dL 6.3 - 8.2 g/dL [facility] Laboratory - Chemistry and C hemistry - challengeon 12-05-2022 Glucose [Mass/Vol] 196 mg/dL High 70 - 100 mg/dL [facility] Glucose [Mass/Vol] 215 mg/dL High 70 - 100 mg/dL [facility] Lipase [Catalytic activity/Vol] 43 U/L 23 - 300 U/L [facility] Laboratory - Coagulationon 0 12-05-2022 aPTT Coag (PPP) [Time] 22.1 s 20.0 - 30.5 s [facility] INR Coag (PPP) [Relative time] 1.0 {INR} 0.9 - 1.1 [facility] Comment on above: Recommended Anticoag ulant Therapy: [...] 11.0 s 9.0 - 1 2.0 s [facility] Laboratory - Hematology and Cell countson 12-05-2022 Hemoglobin (Bld) [Mass/Vol] 12.2 g/dL 11.7 - 16.0 g/dL [facility] No Panel Informationon 12-05 Interpretation and review of laboratory results Abnormal [facility]: [facility], [address] [facility] [address] CLIA ID: [id number] [facility] Interpretation and review of laboratory results Normal [facility] Interpretation and review of laboratory results Abnormal [facility] Performed by: [facility], [address] [facility] [facility] [address] CLIA ID: [id number] [facility] Interpretation and review of laboratory results Normal [facility] XR CHEST (2 VW)on 09-09-2021 [facility]: [id number] Radiology ACCESSION EXAM DATE/TIME PROCEDURE ORDERING PROVIDER [id number] 09/09/2021 10:10 EDT CR Chest PA & LAT MD LOPEZ DARRELL LEROY CPT code 52552 Reason For Exam (CR Chest PA & [...] infiltrate or effusion. Report Dictated on Workstation: [id number] P's --- Final --- Dictating Physician: MD HELTON YUN ROBERT Signed Date and Time: 09/09/2021 3:48 pm Signed by: MD HELTON YUN ROBERT Transcribed Date and Time: 09/09/2021 3:49 [facility] Donato Helton - 09/09/2021 Patient Name: RADHA SANDOVAL Diagnostic Radiology ACCESSION EXAM DATE/TIME PROCEDURE ORDERING PROVIDER [id number] 09/09/2021 10:10 EDT CR Chest PA & LAT MD LOPEZ DARRELL LEROY CPT code 83174 Reason For Exam (CR Chest PA & [...] infiltrate or effusion. Report Dictated on Workstation: [id number] P's --- Final --- Dictating Physician: MD HELTON YUN ROBERT Signed Date and Time: 09/09/2021 3:48 pm Signed by: MD SUNITHA, DONATO FUENTES Transcribed Date and Time: 09/09/2021 3:49 [facility] Work Phone: Radiology Study observation (narrative) [facility] Work Phone: XR CHEST (2 VW)Ordered By: Haven Helton on 09-09-2021 [facility] Work Phone: VL PVR Arterial Doppler Lwr w/o Exerciseon 08-25-2021 VL PVR Arterial Doppler Lwr w/o Exercise [facility]: [id number] Ultrasound ACCESSION EXAM DATE/TIME PROCEDURE ORDERING PROVIDER [id number] 08/25/2021 10:09 EST VL PVR Arterial Doppler [id number] -SOMMER CHATTERJEE Lwr w/o Exercise CPT code 64313 Reason For Exam (VL PVR Arterial Doppler Lwr w/o Exercise) PVD with ulcer of left leg Report [facility] -- Multilevel Lower Extremity Arterial Evaluation Report Patient Radha Sandoval : 1945 Study 08/25/2021 Name: Eduardo (75yrs) Date: Age: 75 Account: [id number] Gender: F Loc: BP: Ordering Physician: Sommer Chatterjee Burr Sander: Clayton Lr RVT Interpreting Physician: Wicho Morales MD -- Location: [facility] -- Indications: PVD with ulcer. [...] supine position. Images were obtained using a Poly[employer] vascular ultrasound machine. -- Arterial pressure indices: [...] WICHO MORALES Cardiovascular ACCESSION EXAM DATE/TIME PROCEDURE [id number] 08/25/2021 10:09 EST VL PVR Arterial Doppler Lwr w/o Exercise CPT code 36894 Reason For Exam (VL PVR Arterial Doppler Lwr w/o Exercise) PVD with ulcer of left leg Report [facility] -- Multilevel Lower Extremity Arterial Evaluation Report Patient Radha Sandoval : 1945 Study 08/25/2021 Name: Eduardo (75yrs) Date: Age: 75 Account: [id number] Gender: F Loc: BP: Cardiovascular Report Ordering Physician: Sommer Chatterjee Burr Sander: Clayton Lr RVT Interpreting Physician: Wicho Morales MD -- Location: [facility] -- Indications: PVD with ulcer. [...] PVR wave (more content not included)... Normal [facility] CULT/STAIN - AEROBIC AND KENNA Tyler 08-07-2021 [...] <= 2 S Amoxicillin/Clavulanic Acid(LAVINIA) R Normal [facility] Comment on above: Performed By: #### Flori LIM #### [address] [id number] [id number] Culture, Anaerobic and Aerob icon 08-07-2021 Aerobic Culture Mixed skin amandeep present. No Pseudomonas aeruginosa isolated. No beta-hemolytic streptococcus isolated. Abnormal [facility] Aerobic Culture Staphylococcus aureus Abnormal [facility] Aerobic Culture Few [facility] Aerobic Culture Citrobacter freundii Abnormal [facility] Aerobic Culture Few For serious infections outside of the urinary tract, third generation cephalosporins may not be effective, even if test results indicate the organism is sensitive. [facility] Anaerobic Culture No growth of anaerob es at 5 days. [facility] Gram Stain Result No polymorphonuclear cells/lpf. Rare gram positive cocci in clusters. [facility] Interpretation and review of laboratory results Abnormal [facility] Test Performed by [facility], [address] [place] [address] LAB [facility] CR Chest PA/LATon 04-22-2021 CR Chest PA/LAT Patient Name: RADHA SANDOVAL Diagnostic Radiology ACCESSION EXAM DATE/TIME PROCEDURE ORDERING PROVIDER [id number] 04/22/2021 11:32 EDT CR Chest PA and LAT MD LOPEZ DARRELL LEROY CPT code 39332 Reason For Exam (CR Chest PA and [...] Transcribed Date and Time: 04/22/2021 11:47 Normal [facility] MG Breast Tomosynthesis Scr Blon 04-22-2021 MG Breast Tomosynthesis Scr Bl Patient Name: RADHA SANDOVAL Mammography ACCESSION EXAM DATE/TIME PROCEDURE ORDERING PROVIDER [id number] 04/22/2021 11:11 EDT MG Breast Tomosynthesis MD LOPEZ DARRELL BI John AGRAWAL CPT code 25952 00545 Reason For Exam (MG Breast Tomosynthesis BI [...] images: BB's = Nipples; skin lesions Open salamatof = Palpable Line = Scar 2D digital [...] am Signed by: MD HELTON YUN ROBERT [facility] OT Bone Density DEXA Axial S manuel 04-22-2021 OT Bone Density DEXA Axial Skeleton Patient Name: RADHA SANDOVAL Bone Density ACCESSION EXAM DATE/TIME PROCEDURE ORDERING PROVIDER [id number] 04/22/2021 10:45 EDT OT Bone Density DEXA MD LOPEZ DARRELL Axial Skeleton [place] CPT code 26684 Reason For Exam (OT Bone Density DEXA Axial Skeleton) menopause Report DXA BONE DENSITOMETRY: CLINICAL INDICATION: Asymptomatic post-menopausal status COMPARISON: None TECHNIQUE: Quantitative bone mineral densitometry of the hip and lumbar spine was performed with a dual energy x-ray observed absorptiometry device - [employer] W. Regions of interest were obtained through [...] recommendations for prevention of bone loss include: 8119-6093 mg calcium intake per day for adults [...] and Follow-up. Christa of [employer] Evidence-Based Summaries. [facility] [employer]. 2017 Bone Density Report Report Dictated on Final Dictating Physician: MD DELVALLE LAUREN B Signed Date and Time: 04/23/2021 8:00 am Signed by: MD DELVALLE LAUREN B Transcribed Date and Time: 04/23/2021 8:01 Normal [facility] ECHO Complete 2D W Doppler W ColorOrdered By: Shiv Lopez on 10-07-2020 TRANSTHORACIC ECHOCARDIOGRAM PATIENT: Radha Sandoval STUDY DATE: 10/07/2020 : 1945 AGE: 75 HT/WT: 170.2 cm (67 117.9 kg in) (259.4 lb) GENDER: F BP: 144 / 89 LOCATION: [facility] PATIENT [facility] STATUS: *ORDERING PHYSICIAN: * Shiv Lopez *READING PHYSICIAN: * Stuart Grier, *SPEECH LANGUAGE PATHOLOGIST TRAVEL: * Lizzette Dejesus MD RD, AE -- [...] LV ID, ES (more content not included)... [facility] Work Phone: Jone, [facility] Incoming Cardiology Results From [email or web address] - 10/07/2020 3:44 PM EDT TRANSTHORACIC ECHOCARDIOGRAM PATIENT: Radha Sandoval STUDY DATE: 10/07/2020 : 1945 AGE: 75 HT/WT: 170.2 cm (67 117.9 kg in) (259.4 lb) GENDER: F BP: 144 / 89 LOCATION: [facility] PATIENT [facility] STATUS: *ORDERING PHYSICIAN: * Shiv Lopez *READING PHYSICIAN: * Stuart Grier, *SPEECH LANGUAGE PATHOLOGIST TRAVEL: * Lizzette Dejesus MD RD, AE -- [...] LV end-diastolic volum (more content not included)... [facility] Work Phone: Echo Complete w/wo Contrasto n 10-07-2020 Echo Complete w/wo Contrast Patient Name: RADHA SANDOVAL Ultrasound ACCESSION EXAM DATE/TIME PROCEDURE ORDERING PROVIDER [id number] 10/07/2020 14:50 EDT Echo Complete w/wo MD JOHN, SHIV AGRAWAL Reason For Exam (Echo Complete w/wo Contrast) edema Report TRANSTHORACIC ECHOCARDIOGRAM PATIENT: Radha Sandoval STUDY DATE: 10/07/2020 : 1945 AGE: 75 HT/WT: 170.2 cm (67 117.9 kg in) (259.4 lb) GENDER: F BP: 144 / 89 LOCATION: [facility] PATIENT [facility] STATUS: *ORDERING PHYSICIAN: * Shiv Lopez *READING PHYSICIAN: * Stuart Grier, *SPEECH LANGUAGE PATHOLOGIST TRAVEL: * Lizzette Dejesus MD RDCS, AE -- [...] ED 0.31 (more content not included)... Normal [facility] Basic Metabolic Panelon 01-17 Anion gap [Moles/Vol] 10 mmol/L [place], [place] Calcium [Mass/Vol] 8.7 mg/dL 8.4 - 10. 4 mg/dL [place], [place] Chloride [Moles/Vol] 101 mmol/L 98 - 10 7 mmol/L [place] CO2 [Moles/Vol] 27 mmol/L 22 - 30 mmol/L [place] Creatinine [Mass/Vol] 1.13 mg/dL 0.52 - 1.25 mg/dL [place] EGFR IF NonAfrican [place]er 46.9 mL/min >60 [place] Comment on above: Source- MDRD equatio n with creatinine calibration to IDMS(NKDEP) eGFR not recommended for drug dose adjustment GFR/1.73 sq M predicted among blacks MDRD (S/P/Bld) [Vol rate/Area] 56.8 mL/min/{1.73_m2} >60 [place], [place] Glucose [Mass/Vol] 139 mg/dL High 70 - 100 mg/dL [place] Interpretation and review of laboratory results Abnormal [place] Potassium [Moles/Vol] 4.3 mmol/L 3.5 - 5.1 mmol/L [place] Sodium [Moles/Vol] 137 mmol/L 135 - 145 mmol/L [place] Urea nitrogen [Mass/Vol] 18 mg/dL 7 - 20 mg/dL [place] CBCon 02-01-2019 Erythrocyte distribution width (RBC) [Ratio] 13.4 % 11.5 - 14.5 % [place] Hematocrit (Bld) [Volume fraction] 35.1 % 35 - 47 % [place] Hemoglobin (Bld) [Mass/Vol] 11.8 g/dL 11.7 - 16 g/dL [place] MCH (RBC) [Entitic mass] 30.2 pg 26 - 34 pg [place] MCHC (RBC) [Mass/Vol] 33.8 % 32 - 36 % [place] MCV (RBC) [Entitic vol] 89.4 fL 79 - 98 fL [place], [place] Platelet mean volume (Bld) [Entitic vol] 7.6 fL 7.4 - 10.4 fL [place] Platelets (Bld) [#/Vol] 419 10*3/uL 140 - 440 10*3/uL [place] RBC (Bld) [#/Vol] 3.92 10*6/uL 3.8 - 5.2 10*6/uL [place] WBC (Bld) [#/Vol] 9.4 10*3/uL 3.6 - 10.7 10*3/uL [place] CT CERVICAL SPINE WO LAURA [facility] 02-01-2019 [facility] Incoming Radiology Results From [facility] - 02/01/2019 7:24 PM EDT Patient Name: RADHA SANDOVAL ---CT--- Exam Date/Time 02/01/2019 18:57:[address] Spine Cervical w/o Contrast Ordering Physician MD CR, REYNA Accession Number [id number] CPT4 Codes 97919 () Reason For Exam NECK PAIN FOLLOWING [...] NELSON Transcribed Date and Time: 02/01/2019 7:12 [place], [place] Patient Name: RADHA SANDOVAL ---CT--- Exam Date/Time 02/01/2019 18:57:[address] Spine Cervical w/o Contrast Ordering Physician MD HANKINS ALEKSANDAR Accession Number [id number] CPT4 Codes 24783 () Reason For Exam NECK PAIN FOLLOWING [...] NELSON Transcribed Date and Time: 02/01/2019 7:12 [place], [place] CT HEAD WO CONTRASTon 2018 [facility] Incoming Radiology Results From [facility] - 02/01/2019 7:40 PM EDT Patient Name: RADHA SANDOVAL ---CT--- Exam Date/Time 02/01/2019 18:57:[address] Head or Brain w/o Contrast Ordering Physician MD CR, REYNA Accession Number [id number] CPT4 Codes 59415 () Reason For Exam HEAD INJURY MILD [...] R Transcribed Date and Time: 02/01/2019 7:35 [place] Patient Name: RADHA SANDOVAL ---CT--- Exam Date/Time 02/01/2019 18:57:[address] Head or Brain w/o Contrast Ordering Physician MD HANKINS ALEKSANDAR Accession Number [id number] CPT4 Codes 65468 () Reason For Exam HEAD INJURY MILD [...] R Transcribed Date and Time: 02/01/2019 7:35 [place] Ethanolon 02-01-2019 Ethanol Lvl <0.010 0 - 0.01 g/dL [place], [place] Comment on above: NOTE: This result is for medical treatment only. Analysis performed using non-forensic procedures. Otheron 02-01-2019 Test Performed by [facility], [address] [place] [id number] [place] [address] Protime/INR & PTTon 02-02-20 19 aPTT Coag (Bld) [Time] 23.9 s 20 - 30.5 s [place], [place] Comment on above: NOTE: The therapeuti c time for Heparin anticoagulation, based on Xa activity inhibition, is an APTT of 46-80 seconds. INR Coag (PPP) [Relative time] 0.9 {INR} [place], [place] Comment on above: Recommended Anticoag ulant [...] [Time] 9.9 s 9 - 12 s [place], [place] Comment on above: . TYPE AND SCREENon 02-01-2019 Sodium [Moles/Vol] Positive [place], [place] Comment on above: Test Performed by [facility], [facility] [place] [address] Sodium [Moles/Vol] O [place] Sodium [Moles/Vol] Negative [place], [place] Comment on above: Test Performed by [facility], [address] [place] [id number] XR CHEST PORTABLEon 02-02-20 19 [facility], [facility] Incoming Radiology Results From [facility] - 02/01/2019 7:15 PM EDT Patient Name: RADHA SANDOVAL ---Diagnostic Radiology--- Exam Date/Time 02/01/2019 19:11:56 EDT Exam CR Chest Portable Ordering Physician MD CR, [facility] Accession Number [id number] CPT4 Codes 46346 () Reason For Exam TRAUMA, FALL Report [...] R Transcribed Date and Time: 02/01/2019 7:13 [place] Patient Name: RADHA SANDOVAL ---Diagnostic Radiology--- Exam Date/Time 02/01/2019 19:11:56 EDT Exam CR Chest Portable Ordering Physician MD HANKINS ALEKSANDAR Accession Number [id number] CPT4 Codes 91674 () Reason For Exam TRAUMA, FALL Report [...] R Transcribed Date and Time: 02/01/2019 7:13 [place] XR PELVIS (1-2 VW)on Patient Name: RADHA SANDOVAL ---Diagnostic Radiology--- Exam Date/Time 02/01/2019 19:11:56 EDT Exam CR Pelvis 1 or 2 Views Ordering Physician MD HANKINS ALEKSANDAR Accession Number [id number] CPT4 Codes 48612 () Reason For Exam TRAUMA, FALL Report [...] R Transcribed Date and Time: 02/01/2019 7:12 [place] [facility], [facility] Incoming Radiology Results From [facility] - 02/01/2019 7:14 PM EDT Patient Name: RADHA SANDOVAL ---Diagnostic Radiology--- Exam Date/Time 02/01/2019 19:11:56 EDT Exam CR Pelvis 1 or 2 Views Ordering Physician MD HANKINS ALEKSANDAR Accession Number [id number] CPT4 Codes 75355 () Reason For Exam TRAUMA, FALL Report [...] R Transcribed Date and Time: 02/01/2019 7:12 [place] Vital Signs Date Time Vital Sign Value [facility] 11:02-0400 Body temperature 98.7 [degF] [facility] 03-18-2023 11:02-0400 Diastolic blood pressure 50 mm[Hg] [facility] 03-18-2023 11:02-0400 Heart rate 74 /min [facility] 03-18-2023 11:02-0400 Respiratory rate 18 /min [facility] 03-18-2023 11:02-0400 SaO2% (BldA) [Mass fraction] 96 % [facility] 03-18-2023 11:02-0400 Systolic blood pressure 142 mm[Hg] [facility] 03-15-2023 14:20-0400 Body height 170.18 cm [facility] 03-15-2023 14:20-0400 Body weight 113.21 kg [facility] 03-14-2023 09:34-0400 Body mass index (BMI) [Ratio] 39.1 kg/m2 [facility] 03-03-2023 07:40-0400 Body temperature 98.1 [degF] Tasneem Whaley MD Work Phone: [facility] [employer] 03-03-2023 07:40-0400 Diastolic blood pressure 81 mm[Hg] Tasneem Whaley MD Work Phone: [facility] [employer] 03-03-2023 07:40-0400 Heart rate 93 /min Tasneem Whaley MD Work Phone: [facility] [employer] 03-03-2023 07:40-0400 Respiratory rate 16 /min Tasneem Whaley MD Work Phone: [facility] [employer] 03-03-2023 07:40-0400 SaO2% (BldA) [Mass fraction] 94 % Tasneem Whaley MD Work Phone: [facility] [employer] 03-03-2023 07:40-0400 Systolic blood pressure 154 mm[Hg] Tasneem Whaley MD Work Phone: [facility] [employer] 02-27-2023 14:44-0400 Body mass index (BMI) [Ratio] 36.65 kg/m2 Katia Bridenthal AUTOMATION TENDER - FACER OPERATOR Work Phone: [facility] [employer] 02-27-2023 14:44-0400 Body temperature 99.1 [degF] Katia Bridenthal AUTOMATION TENDER - FACER OPERATOR Work Phone: [facility] [employer] 02-27-2023 14:44-0400 Body weight 106.14 kg Katia Bridenthal AUTOMATION TENDER - FACER OPERATOR Work Phone: [facility] [employer] 02-27-2023 14:44-0400 Diastolic blood pressure 72 mm[Hg] Katia Bridenthal AUTOMATION TENDER - FACER OPERATOR Work Phone: [facility] [employer] 02-27-2023 14:44-0400 Heart rate 93 /min Katia Bridenthal AUTOMATION TENDER - FACER OPERATOR Work Phone: [facility] [employer] 02-27-2023 14:44-0400 Respiratory rate 20 /min Katia Bridenthal AUTOMATION TENDER - FACER OPERATOR Work Phone: [facility] [employer] 02-27-2023 14:44-0400 SaO2% (BldA) [Mass fraction] 92 % Katia Gregenthal AUTOMATION TENDER - FACER OPERATOR Work Phone: [employer] 02-27-2023 14:44-0400 Systolic blood pressure 136 mm[Hg] Katia Gregenthal AUTOMATION TENDER - FACER OPERATOR Work Phone: [employer] 02-15-2023 13:07-0400 Body height 170.2 cm Lenard Magallanes DO Work Phone: [employer] 02-15-2023 13:07-0400 Body mass index (BMI) [Ratio] 35.71 kg/m2 Lenard Magallanes DO Work Phone: [employer] 02-15-2023 13:07-0400 Body temperature 98.6 [degF] Lenard Magallanes DO Work Phone: [employer] 02-15-2023 13:07-0400 Body weight 103.42 kg Lenard Magallanes DO Work Phone: [employer] 02-15-2023 13:07-0400 Diastolic blood pressure 76 mm[Hg] Lenard Magallanes DO Work Phone: [employer] 02-15-2023 13:07-0400 Heart rate 75 /min Lenard Magallanes DO Work Phone: [employer] 02-15-2023 13:07-0400 Respiratory rate 20 /min Lenard Magallanes DO Work Phone: [employer] 02-15-2023 13:07-0400 Systolic blood pressure 141 mm[Hg] Lenard Magallanes DO Work Phone: [employer] 02-07-2023 11:18-0400 Diastolic blood pressure 72 mm[Hg] Katia Bridenthal AUTOMATION TENDER - FACER OPERATOR Work Phone: [employer] 02-07-2023 11:18-0400 Systolic blood pressure 146 mm[Hg] Katia Bridenthal AUTOMATION TENDER - FACER OPERATOR Work Phone: [employer] 02-07-2023 10:39-0400 Body mass index (BMI) [Ratio] 40.34 kg/m2 Katia Bridenthal AUTOMATION TENDER - FACER OPERATOR Work Phone: [facility] [employer] 02-07-2023 10:39-0400 Body temperature 97.3 [degF] Katia Bridenthal AUTOMATION TENDER - FACER OPERATOR Work Phone: [facility] [employer] 02-07-2023 10:39-0400 Body weight 109.95 kg Katia Bridenthal AUTOMATION TENDER - FACER OPERATOR Work Phone: [facility] [employer] 02-07-2023 10:39-0400 Heart rate 88 /min Katia Bridenthal AUTOMATION TENDER - FACER OPERATOR Work Phone: [facility] [employer] 02-07-2023 10:39-0400 Respiratory rate 20 /min Katia Bridenthal AUTOMATION TENDER - FACER OPERATOR Work Phone: [facility] [employer] 02-07-2023 10:39-0400 SaO2% (BldA) [Mass fraction] 96 % Katia Bridenthal AUTOMATION TENDER - FACER OPERATOR Work Phone: [facility] [employer] 12-07-2022 10:03-0400 Diastolic blood pressure 80 mm[Hg] Anusha Velarde MD Work Phone: [facility] [employer] 12-07-2022 10:03-0400 Heart rate 72 /min Anusha Velarde MD Work Phone: [facility] [employer] 12-07-2022 10:03-0400 Respiratory rate 18 /min Anusha Velarde MD Work Phone: [facility] [employer] 12-07-2022 10:03-0400 SaO2% (BldA) [Mass fraction] 96 % Anusha Velarde MD Work Phone: [facility] [employer] 12-07-2022 10:03-0400 Systolic blood pressure 162 mm[Hg] Anusha Velarde MD Work Phone: [facility] [employer] 12-07-2022 09:50-0400 Body temperature 97.2 [degF] Anusha Velarde MD Work Phone: [facility] [employer] 12-07-2022 08:49-0400 Body height 165.1 cm Anusha Velarde MD Work Phone: [facility] [employer] 12-07-2022 08:49-0400 Body mass index (BMI) [Ratio] 41.6 kg/m2 Anusha Velared MD Work Phone: [employer] 12-07-2022 08:49-0400 Body weight 113.4 kg Anusha Velarde MD Work Phone: [facility] [employer] 06-30-2022 08:47-0500 Diastolic blood pressure 62 mm[Hg] Shiv Lopez MD Work Phone: [employer] 06-30-2022 08:47-0500 Heart rate 80 /min Shiv Lopez MD Work Phone: [facility] [employer] 06-30-2022 08:47-0500 Systolic blood pressure 125 mm[Hg] Shiv Lopez MD Work Phone: [facility] [employer] 06-30-2022 08:16-0500 Body height 165.7 cm Shiv Lopez MD Work Phone: [employer] 06-30-2022 08:16-0500 Body mass index (BMI) [Ratio] 39.96 kg/m2 Shiv Lopez MD Work Phone: [facility] [employer] 06-30-2022 08:16-0500 Body weight 109.77 kg Shiv Lopez MD Work Phone: [facility] [employer] Encounters Encounter Date Encounter Type Care Provider Facility Start: 03-06-2025 ambulatory Melissa Gudla OLS Facili ty:[facility] Start: 02-20-2025 ambulatory Melissa Gudla OLS Facili ty:[facility] Start: 02-06-2025 ambulatory Melissa Gudla OLS Facili ty:[facility] Start: 01-23-2025 ambulatory Melissa Gudla Facility:[facility] Start: 01-09-2025 ambulatory Melissa Gudla Facility:[facility] Start: 12-26-2024 ambulatory Melissa Gudla Facility:[facility] Start: 12-24-2024 ambulatory Melissa Gudla Facility:[facility] Start: 12-12-2024 [facility] Start: 11-28-2024 End: 11-28-[address] Melissa Reed MD [facility] Work Phone: Start: 11-28-2024 End: 11-28-[address] Melissa Reed MD -[facility] Work Phone: Start: 11-28-[address] Melissa Reed MD -[facility] Work Phone: Start: 11-28-2024 End: 11-28-2024 [facility] Start: 11-14-2024 [facility]ulatory [facility] Start: 11-14-[address] Melissa Reed MD -[facility] Work Phone: Start: 11-08-2024 End: 11-08-[address] Melissa Reed MD [facility] Work Phone: Start: 11-08-2024 End: 11-08-[address] Melissa Reed MD -[facility] Work Phone: Start: 11-08-2024 End: 11-08-2024 ambulatory [facility] Facility:[facility] Start: 10-17-2024 End: 10-17-[address] Melissa Reed MD -[facility] Work Phone: Start: 10-17-2024 End: 10-17-2024 ambulatory Melissa Gukasia [facility] Facility:[facility] Start: 10-03-2024 End: 10-03-[address] Shiv Lopez MD Work Phone: [facility] Work Phone: Start: 10-03-2024 End: 10-03-[address] Melissa eRed MD -[facility] Work Phone: Start: 10-03-2024 End: 10-03-2024 ambulatory Melissa THOMPSON Facility:[facility] Start: 09-23-2024 ambulatory Melissa THOMPSON Facili ty:[facility] Start: 09-23-[address] Melissa Reed MD -[facility] Work Phone: Start: 09-19-2024 End: 09-19-[address] Shiv Lopez MD Work Phone: [facility] Work Phone: Start: 09-19-2024 End: 09-19-[address] Melissa Reed MD -[facility] Work Phone: Start: 09-19-[address] Melissa Reed MD -[facility] Work Phone: Start: 09-19-2024 End: 09-19-2024 ambulatory Melissa THOMPSON Facility:[facility] Start: 09-05-2024 End: 09-05-[address] Shiv Lopez MD Work Phone: [facility] Work Phone: Start: 09-05-2024 End: 09-05-[address] Melissa Reed MD -[facility] Work Phone: Start: 09-05-[address] Melissa Reed MD -[facility] Work Phone: Start: 09-05-2024 End: 09-05-2024 ambulatory Melissa THOMPSON Facility:[facility] Start: 08-22-2024 End: 08-22-[address] Shiv Lopez MD Work Phone: [facility] Work Phone: Start: 08-22-2024 End: 08-22-[address] Melissa Reed MD -[facility] Work Phone: Start: 08-22-2024 End: 08-22-2024 ambulatory Melissa Genenaz OLS Facility:[facility] Start: 08-08-2024 ambulatory Melissa Genekasidiony Facility:[facility] Start: 08-08-[address] Melissa Reed MD -[facility] Start: 08-06-2024 ambulatory Melissabridgette Reed Facility:[facility] Start: 08-06-[address] Melissa Reed MD -[facility] Work Phone: Start: 07-31-2024 End: 07-31-[address] Gypsy Argueta MD -Radiology, [facility] Work Phone: Start: 07-31-2024 End: 07-31-2024 ambulatory Gypsy Argueta Facility:[facility] Start: 07-25-2024 ambulatory Shiv [facility] Facility :[facility] Start: 07-25-[address] Melissa Reed MD -[facility] Work Phone: Start: 07-11-2024 ambulatory Shiv [facility] Facility :[facility] Start: 07-11-[address] Melissa Reed MD -[facility] Work Phone: Start: 06-27-2024 End: 06-27-[address] Melissa Reed MD -[facility] Work Phone: Start: 06-27-2024 End: 06-27-2024 ambulatory [facility] Facility:[facility] Start: 06-13-2024 ambulatory [facility] Facility :[facility] Start: 06-13-[address] Melissa Reed MD -[facility] Work Phone: Start: 05-29-2024 End: 05-29-[address] Melissa Reed MD -[facility] Work Phone: Start: 05-29-2024 End: 05-29-2024 ambulatory Shiv John Facility:[facility] Start: 05-15-2024 End: 05-15-2024 ambulatory Shiv John Facility:[facility] Start: 05-01-2024 End: 05-01-2024 ambulatory Shiv John Facility:[facility] Start: 04-17-2024 End: 04-17-2024 ambulatory Shiv John Facility:[facility] Start: 04-04-2024 End: 04-04-20[facility] Start: 04-01-2024 End: 04-01-2024 [facility] Start: 03-20-2024 End: 03-20-2024 [facility] Start: 12-29-2023 End: 12-29-2023 ambulatory [facility] Start: 09-29-2023 End: 09-29-2023 ambulatory [facility] Work Phone: Start: 09-29-2023 End: 09-29-2023 Departed Referred [facility] Work Phone: Start: 09-14-2023 End: 09-14-2023 ambulatory [facility] Work Phone: Start: 09-14-2023 End: 09-14-2023 Departed Referred [facility] Work Phone: Start: 08-31-2023 End: 08-31-2023 ambulatory [facility] Work Phone: Start: 08-31-2023 End: 08-31-2023 Departed Referred [facility] Work Phone: Start: 08-17-2023 End: 08-17-2023 ambulatory [facility] Work Phone: Start: 08-17-2023 End: 08-17-2023 Departed Referred [facility] Work Phone: Start: 08-14-2023 End: 08-14-2023 Departed Referred [facility] Work Phone: Start: 07-31-2023 End: 07-31-2023 Departed Referred [facility] Work Phone: Start: 07-17-2023 End: 07-17-2023 Departed Referred [facility] Work Phone: Start: 07-03-2023 End: 07-03-2023 Departed Referred [facility] Work Phone: Start: 07-03-2023 Registered Referred [facility] Work Phone: Start: 06-23-2023 End: 06-23-2023 ambulatory [facility] Work Phone: Start: 06-23-2023 End: 06-23-2023 Departed Referred [facility] Start: 06-20-2023 End: 06-20-2023 ambulatory [facility] Work Phone: Start: 06-20-2023 End: 06-20-2023 Departed Referred [facility] Work Phone: Start: 06-20-2023 Registered Referred [facility] Work Phone: Start: 05-10-2023 End: 05-10-2023 ambulatory [facility] Work Phone: Start: 05-10-2023 End: 05-10-2023 Departed Referred [facility] Start: 05-10-2023 Registered Referred [facility] Start: 05-01-2023 End: 05-01-2023 ambulatory [facility] Work Phone: Start: 05-01-2023 End: 05-01-2023 Departed Referred [facility] Start: 04-04-2023 End: 04-04-2023 ambulatory [facility] Work Phone: Start: 04-04-2023 End: 04-04-2023 Departed Referred [facility] Start: 03-20-2023 End: 03-20-2023 Departed Referred [facility] Start: 03-03-2023 End: 03-18-2023 Evaluation and management of inpatient [facility] Start: 02-28-2023 End: 03-03-2023 ambulatory Imelda Mann RN [facility] Clinical Communication Start: 02-28-2023 Patient encounter [facility] Start: 02-28-2023 End: 03-03-2023 Emergency department patient visit Tasneem Whaley MD Work Phone: [facility] Comment on above: LING (acute kidney in jury) (CMS/HCC) (HCC) (Primary Dx); Pyelonephritis; Polypharmacy; Insomnia, unspecified type; Pressure ulcer of right buttock, stage 3 (HCC) Start: 02-27-2023 End: 02-27-[address] [facility] Start: 02-27-2023 End: 02-27-2023 Office outpatient visit 25 minutes Katia Granados APRN - FACER OPERATOR Work Phone: [facility] Comment on above: [...] type Start: 02-23-2023 ambulatory Nan Bush RN [facility] Cl inical Communication Start: 02-23-2023 Patient encounter procedure Nan Bush RN [facility] Clinical Communication Start: 02-15-2023 End: 02-15-2023 Subsequent hospital visit by physician Lenard Magallanes DO Work Phone: [facility] Comment on above: Arrived Start: 02-15-2023 End: 02-15-2023 ambulatory LENARD SONA [facility] Start: 02-07-2023 End: 02-07-2023 Office outpatient visit 15 minutes Katia Granados AUTOMATION TENDER - FACER OPERATOR Work Phone: [facility] Comment on above: Wound of right butto ck, subsequent encounter (Primary Dx); Chronic left shoulder pain Start: 02-07-2023 End: 02-07-2023 ambulatory SHIV JOHN [facility] Start: 01-25-2023 ambulatory Colette Poole RN [facility] Clinical Communication Start: 01-25-2023 Patient encounter procedure Colette Poole RN [facility] Clinical Communication Start: 01-12-2023 Refill Katia ley AUTOMATION TENDER - FACER OPERATOR Work Phone: [facility] Comment on above: Vitamin D deficiency ; Acquired hypothyroidism; Chronic left shoulder pain; Restless legs syndrome (RLS) Start: 12-08-2022 Refill Katia ley AUTOMATION TENDER - FACER OPERATOR Work Phone: [facility] Comment on above: Hyperlipidemia with target LDL less than 70; Acquired hypothyroidism; Chronic left shoulder pain Start: 12-05-2022 ambulatory Sruthi Burns RN [facility] Clinical Communication Start: 12-05-2022 Patient encounter procedure Sruthi Burns RN [facility] Clinical Communication Start: 12-05-2022 End: 12-07-2022 Emergency department patient visit Anusha Velarde MD Work Phone: [facility] Comment on above: Acute lower GI bleed ing (Primary Dx); Rectal bleeding Start: 10-05-2022 Telephone encounter Shiv James MD Work Phone: [facility] Comment on above: Results Start: 08-12-2022 Refill Shiv Lopez MD Work Phone: [facility] Clinical Communication Start: 07-26-2022 Refill Shiv Lopez MD Work Phone: [facility] Start: 07-18-2022 Refill Katia Mnotero av AUTOMATION TENDER - FACER OPERATOR Work Phone: [facility] Comment on above: Vitamin D deficiency Start: 07-11-2022 Refill Shiv Lopez MD Work Phone: [facility] Start: 07-08-2022 ambulatory Christine Haas [facility] Start: 07-08-2022 Patient encounter procedure [facility]as [facility] Comment on above: Trauma (Primary Dx) Start: 07-07-2022 Telephone encounter Devendra ramos MD Work Phone: [facility] [place] Comment on above: Reschedule (07/08/22 ) Start: 06-30-2022 End: 06-30-2022 Office outpatient visit 25 minutes Shiv Lopez MD Work Phone: [facility] Comment on above: Uncontrolled type 2 diabetes [...] by physician Shiv Lopez MD Work Phone: [facility] Comment on above: Dyspnea on exertion Start: 08-25-2021 End: 08-25-2021 Subsequent hospital visit by physician Sommer Chatterjee DPM Work Phone: [facility] Start: 11-05-2020 End: 11-05-2020 Subsequent hospital visit by physician Shiv Lopez MD Work Phone: [facility] Start: 10-07-2020 End: 10-07-2020 Subsequent hospital visit by physician Shiv Lopez MD Work Phone: [facility] Comment on above: Localized edema Start: 09-29-2020 End: 09-29-2020 Subsequent hospital visit by physician Shiv Lopez Work Phone: [facility] Start: 09-08-2020 End: 09-08-2020 Subsequent hospital visit by physician Shiv Lopez Work Phone: [facility] Start: 09-01-2020 End: 09-01-2020 Subsequent hospital visit by physician Roseanne Roberts Work Phone: [facility] Start: 08-18-2020 End: 08-18-2020 Subsequent hospital visit by physician Shiv Lopez Work Phone: [facility] Start: 07-31-2020 End: 07-31-2020 Subsequent hospital visit by physician Shiv Lopez Work Phone: [facility] Start: 02-01-2019 End: 02-01-2019 Emergency department patient visit Dick Edie Ace Work Phone: [facility] Emergency Dept Comment on above: Injury of head, init ial encounter (Primary Dx); Laceration of scalp, initial encounter; Strain of neck muscle, initial encounter Start: 01-18-2019 End: 01-18-2019 Subsequent hospital visit by physician Darya Berrios Work Phone: [facility] Laboratory Start: 07-05-2017 Ambulatory Shiv Mercado [facility] Procedures Date Procedure Procedure [...] et rgnt non-auto w/o micrscp Katia Bridenthal AUTOMATION TENDER - FACER OPERATOR Work Phone: Start: 02-27-2023 Glucose [Mass/volume ] in Serum or Plasma Katia Bridenthal AUTOMATION TENDER - FACER OPERATOR Work Phone: Start: 02-27-2023 Thyrotropin [Units/v olume] [...] 02-01-2019 Radiologic exam ches t single view [employer] Work Phone: Start: 02-01-2019 Radiologic examinati on pelvis 1/2 views [employer] Work Phone: Start: 02-01-2019 Ct cervical spine w/ o contrast material [employer] Work Phone: Start: 02-01-2019 Ct head/brain w/o co ntrast material [employer] Work Phone: Start: 02-01-2019 Blood typing serologic [...] Author Start: 09-23-2024 Urine culture Urine Culture [facility] Start: 09-23-2024 [facility] Start: 09-05-2024 Urine culture Urine Culture [facility] Start: 09-05-2024 [facility] Start: 02-28-2024 Thyroid stimulating hormone measurement TSH Level [facility] Start: 02-18-2024 Influenza vaccination Influenza Vacc ine (#1) [facility] Start: 02-08-2024 COVID-19 Vaccine (3 - Booster for Brian series) COVID-19 Vaccine (3 - Booster for Brian series) [facility] Comment on above: Postponed from 06/21 (Patient Refused) Start: 02-08-2024 DTaP/Tdap/Td Vaccine s (1 - Tdap) DTaP/Tdap/Td Vaccines (1 - Tdap) [facility] Comment on above: Postponed from 08/27 (Patient Refused) Start: 02-08-2024 [facility] on above: Postponed from 08/27 (Patient Refused) Start: 02-08-2024 Zoster Vaccines (2 o f 2) Zoster Vaccines (2 of 2) [facility] Comment on above: Postponed from 05/26 (Patient Refused) Start: 08-10-2023 Depression Monitoring Depression Mon itoring [facility] Start: 08-10-2023 [facility] Start: 06-30-2023 Lipid panel Lipid Panel [facility] Start: 06-30-2023 Thyroid stimulating hormone measurement TSH Level [facility] Start: 06-30-2023 Urine screening for protein Diabetes: Urine Protein Screening [facility] Start: 06-19-2023 Medicare Advantage Annual Wellness Visit Medicare Advantage Annual Wellness Visit [facility] Start: 06-14-2023 Depresssion [facility] Start: 04-27-2023 End: 04-27-2023 Patient encounter procedure [facility] Start: 04-27-2023 Depresssion Monitoring [facility] Start: 04-08-2023 Blood chemistry [facility] Start: 04-01-2023 Blood chemistry [facility] Start: 03-25-2023 Blood chemistry [facility] Start: 03-20-2023 SARS-CoV-2 (COVID-19 ) Ag [Presence] in Respiratory specimen by Rapid immunoassay [facility] Start: 03-19-2023 Development of care plan [facility] Start: 03-18-2023 Patient discharge [facility] Start: 03-17-2023 End: 03-17-2023 [facility] Start: 03-17-2023 Microbial culture, routine Wound Culture [facility] Start: 03-17-2023 Bacterial nucleic ac id assay [facility] Start: 03-13-2023 [facility] Start: 03-06-2023 Referral to entry level financial analyst [facility] Start: 03-04-2023 Development of care plan [facility] Start: 03-03-2023 Admission procedure [facility] Start: 03-03-2023 Measuring intake and output [facility] Start: 03-03-2023 Patient referral to dietitian [facility] Start: 03-03-2023 Referral to occupational therapist [facility] Start: 03-03-2023 Referral to service [facility] Start: 03-03-2023 Vital signs measurements [facility] Start: 03-03-2023 [facility] Start: 03-03-2023 Verification routine [facility] Start: 03-03-2023 End: 03-03-2023 Patient encounter procedure [facility] Start: 03-03-2023 Patient referral to dietitian [facility] Start: 02-27-2023 End: 02-28-2024 Bacteria identified in Urine by Culture Urine culture (clean catch) Microbiology Routine Urinary tract infection symptoms Expected: 02/27/2023 (Approximate), Expires: 02/28/2024 [facility] Comment on above: Expected: 02/27/2023 (Approximate), Expires: 02/28/2024 Start: 02-27-2023 End: 02-28-2024 CBC W Auto Differential panel - Blood CBC auto differential Lab Routine History of GI bleed Expected: 02/27/2023 (Approximate), Expires: 02/28/2024 [facility] [employer] Comment on above: Expected: 02/27/2023 (Approximate), Expires: 02/28/2024 Start: 02-27-2023 End: 02-28-2024 Comprehensive metabolic 1998 panel - Serum or Plasma Comprehensive metabolic panel Lab Routine 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, with long-term current use of insulin, unspecified whether stage 3a or 3b CKD (HCC) Primary hypertension Hypokalemia Expected: 02/27/2023 (Approximate), Expires: 02/28/2024 [facility] [employer] [facility] Work Phone: Comment on above: Expected: 02/27/2023 (Approximate), Expires: 02/28/2024 Start: 02-27-2023 End: 02-28-2024 Magnesium [Mass/volume] in Serum or Plasma Magnesium Lab Routine 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, with long-term current use of insulin, unspecified whether stage 3a or 3b CKD (HCC) Hypokalemia Expected: 02/27/2023 (Approximate), Expires: 02/28/2024 [facility] [employer] Comment on above: Expected: 02/27/2023 (Approximate), Expires: 02/28/2024 Start: 02-27-2023 End: 02-28-2024 Thyrotropin [Units/volume] in Serum or Plasma TSH Lab Routine Acquired hypothyroidism Expected: 02/27/2023 (Approximate), Expires: 02/28/2024 [facility] [employer] Comment on above: Expected: 02/27/2023 (Approximate), Expires: 02/28/2024 Start: 02-27-2023 End: 02-27-2023 Patient encounter procedure 02/27/2023 1:00 PM EDT Office Visit [facility] [address] [place] [address] Carolina Connolly, AUTOMATION TENDER - FACER OPERATOR [address] [place] [address] [facility] Start: 02-24-2023 End: 02-24-2023 Patient encounter procedure 02/24/2023 11:20 AM EDT Office Visit [facility] [address] [facility] [place] [address] [place] [address] Katia Granados, AUTOMATION TENDER - FACER OPERATOR [address] [facility] [place] [address] [facility] Start: 02-22-2023 End: 02-22-2023 Patient encounter procedure 02/22/2023 2:00 PM EDT Appointment [facility] [address] [place] [address] Lenard Magallanes, [address] [place] [address] [facility] Start: 02-17-2023 COVID-19 Vaccine ( season) COVID-19 Vaccine () [facility] Start: 02-17-2023 Influenza vaccination Influenza Vacc ine (#1) [facility] Start: 02-14-2023 End: 02-14-2023 Patient encounter procedure 02/14/2023 10:20 AM EDT Office Visit [facility] [address] [facility] [place] [address] Katia Granados, AUTOMATION TENDER - FACER OPERATOR [address] [facility] [place] [address] [facility] Start: 02-01-2023 End: 02-01-2023 Patient encounter procedure 02/01/2023 2:15 PM EDT Office Visit [facility] [address] [facility] [place] [address] Shiv Lopez MD [address] [facility] [place] [address] [facility] Start: 01-25-2023 End: 01-25-2023 Patient encounter procedure 01/25/2023 3:00 PM EDT Office Visit [facility] [address] [facility] [place] [address] Shiv Lopez MD [address] [place] [address] [place] [address] [facility] Start: 01-03-2023 Hemoglobin A1c measurement Diabetes: Hemoglobin A1C [facility] Start: 10-25-2022 End: 10-25-2022 Patient encounter procedure 10/25/2022 Office Visit Family Medicine Shiv Lopez MD [address] [place], [place] [address] [address] [facility] Start: 09-29-2022 End: 09-29-2022 Patient encounter procedure 09/29/2022 Office Visit Family Medicine Shiv Lopez MD [address] [place], [place] [address] [address] [facility] Start: 09-28-2022 Hemoglobin A1c measurement Diabetes: Hemoglobin A1C [facility] Start: 09-09-2022 Creatinine measurement Creatinine mo nitoring [facility] Start: 09-09-2022 Potassium monitoring Potassium monit oring [facility] Start: 09-09-2022 Thyroid stimulating hormone measurement TSH testing [facility] Start: 08-05-2022 Creatinine measurement Creatinine mo nitoring [facility] Start: 08-05-2022 Potassium monitoring Potassium monit oring [facility] Start: 07-08-2022 Depression Monitoring Depression Mon itoring [facility] Start: 06-30-2022 End: 06-30-2023 25-hydroxyvitamin D3 [Mass/volume] in Serum or Plasma Vitamin D 25 hydroxy Lab Routine Vitamin D deficiency Expected: 06/30/2022 (Approximate), Expires: 06/30/2023 [facility] Work Phone: Comment on above: Expected: 06/30/2022 (Approximate), Expires: 06/30/2023 Start: 06-30-2022 End: 06-30-2023 Comprehensive metabolic 1998 panel - Serum or Plasma Comprehensive metabolic panel Lab Routine Uncontrolled type 2 diabetes mellitus with hyperglycemia (HCC) Expected: 06/30/2022 (Approximate), Expires: 06/30/2023 [facility] [employer] Comment on above: Expected: 06/30/2022 (Approximate), Expires: 06/30/2023 Start: 06-30-2022 End: 06-30-2023 Hemoglobin A1c/Hemoglobin.total in Blood Hemoglobin A1c Lab Routine Uncontrolled type 2 diabetes mellitus with hyperglycemia (HCC) Expected: 06/30/2022 (Approximate), Expires: 06/30/2023 [facility] [employer] Comment on above: Expected: 06/30/2022 (Approximate), Expires: 06/30/2023 Start: 06-30-2022 End: 06-30-2023 Lipid 1996 panel - Serum or Plasma Lipid panel Lab Routine Hyperlipidemia with target LDL less than 70 Expected: 06/30/2022 (Approximate), Expires: 06/30/2023 [facility] [employer] Comment on above: Expected: 06/30/2022 (Approximate), Expires: 06/30/2023 Start: 06-30-2022 End: 06-30-2023 Microalbumin/Creatinine panel in random Urine Microalbumin / creatinine urine ratio Lab Routine Uncontrolled type 2 diabetes mellitus with hyperglycemia (HCC) Expected: 06/30/2022 (Approximate), Expires: 06/30/2023 [facility] [employer] Comment on above: Expected: 06/30/2022 (Approximate), Expires: 06/30/2023 Start: 06-30-2022 End: 06-30-2023 Thyrotropin [Units/volume] in Serum or Plasma TSH Lab Routine Acquired hypothyroidism Expected: 06/30/2022 (Approximate), Expires: 06/30/2023 [facility] [employer] Comment on above: Expected: 06/30/2022 (Approximate), Expires: 06/30/2023 Start: 06-22-2022 Lipid panel [facility] Start: 03-31-2022 Pneumococcal Vaccine : 65+ Years (2 - PCV) Pneumococcal Vaccine: 65+ Years (2 - PCV) [facility] [employer] Start: 02-28-2022 End: 02-28-2022 Patient encounter procedure 02/28/2022 Office Visit Family Medicine Shiv Lopez MD [address] [place] [address] [place] [address] [facility] Start: 02-17-2022 Annual Wellness Visi t (AWV) Annual Wellness Visit (AWV) [facility] Start: 02-16-2022 Hepatitis C screening Hepatitis C sc reen [facility] Comment on above: Postponed from 08/27 (Patient Refused) Start: 02-16-2022 Thyroid stimulating hormone measurement TSH testing [facility] Start: 11-02-2021 Hemoglobin A1c measurement Diabetes: Hemoglobin A1C [facility] Start: 10-01-2021 Creatinine measurement Creatinine mo nitoring [facility] Work Phone: Start: 10-01-2021 Potassium monitoring Potassium monit oring [facility] Work Phone: Start: 09-13-2021 End: 09-13-2021 Patient encounter procedure 09/13/2021 Office Visit Family Medicine Shiv Lopez MD [address] [place] [address] [place] [address] [facility] Start: 09-02-2021 End: 09-02-2021 Patient encounter procedure 09/02/2021 Office Visit Family Medicine Shiv Lopez MD [address] [place] [address] [facility] Start: 06-24-2021 Thyroid stimulating hormone measurement TSH testing [facility] Work Phone: Start: 06-24-2021 TSH Qn TSH testing [facility] Work Phone: Start: 06-21-2021 COVID-19 Vaccine (3 - Booster for Brian series) COVID-19 Vaccine (3 - Booster for Brian series) [facility] Start: 05-26-2021 Shingles Vaccine (2 of 2) Shingles Vaccine (2 of 2) [facility] Start: 05-26-2021 Zoster Vaccines (2 o f 2) Zoster Vaccines (2 of 2) [facility] Start: 04-20-2021 Creatinine measurement Creatinine mo nitoring [facility] Work Phone: Start: 04-20-2021 Potassium monitoring Potassium monit oring [facility] Work Phone: Start: 01-15-2021 Screening for osteoporosis DEXA (modify frequency per FRAX score) [facility] Work Phone: Comment on above: Postponed from 08/27 (Patient Refused) Start: 01-07-2021 Urine screening for protein Diabetes: Urine Protein Screening [facility] Start: 10-12-2020 End: 10-12-2020 Patient encounter procedure 10/12/2020 Office Visit Family Medicine [facility]iv Lopez [facility] [address] [facility] [address] [place] [id number] [facility] Start: 10-08-2020 End: 10-08-2020 Patient encounter procedure 10/08/2020 Office [facility] [place] [place] [id number] Canceled (Patient) [facility] Comment on above: Canceled (Patient) Start: 10-01-2020 End: 10-01-2020 Office Visit 10/01/2020 Office Visit [place] [address] [phone] [facility] Start: 06-03-2020 Lipid panel Lipid screen [facility] Work Phone: Start: 01-21-2020 A1C test (Diabetic o r Prediabetic) A1C test (Diabetic or Prediabetic) [place], [place] Start: 01-19-2020 TSH testing TSH testing [place], [place] Start: 06-07-2019 DTaP/Tdap/Td vaccine (1 - Tdap) DTaP/Tdap/Td vaccine (1 - Tdap) [place] Comment on above: Postponed from 08/27 (Patient Refused) Start: 05-23-2019 Diabetic retinal exam Diabetic retin al exam [place], [place] Start: 04-12-2019 Lipid screen Lipid screen [place], [place] Start: 02-17-2019 Influenza vaccination Flu vaccine (# 1) [place], [place] Start: 12-05-2018 Annual Wellness Visi t (AWV) Annual Wellness Visit (AWV) [facility] Work Phone: Start: 10-06-2017 [object Object] Diabetic foot exam [place] Start: 10-06-2017 Annual Wellness Visi t (AWV) Annual Wellness Visit (AWV) [place] Start: 03-09-2013 Pneumococcal 65+ yea rs Vaccine (2 of 2 - PCV13) Pneumococcal 65+ years Vaccine (2 of 2 - PCV13) [place] Start: 08-27-2008 DEXA (modify frequen cy per FRAX score) DEXA (modify frequency per FRAX score) [place] Start: 08-27-2008 Pneumococcal 65+ yea rs Vaccine (1 of 2 - PCV13) Pneumococcal 65+ years Vaccine (1 of 2 - PCV13) [place], [place] Start: 2003 RSV Immunization age d 60 or older (1 - 1-dose 60+ series) RSV Immunization aged 60 or older (1 - 1-dose 60+ series) [facility] Start: 08-27-1993 Colon cancer screen colonoscopy Colon cancer screen colonoscopy [place], [place] Start: 08-27-1993 Shingles Vaccine (1 of 2) Shingles Vaccine (1 of 2) [place] Start: 08-27-1962 DTaP/Tdap/Td vaccine (1 - Tdap) DTaP/Tdap/Td vaccine (1 - Tdap) [facility] Start: 08-27-1962 DTaP/Tdap/Td Vaccine s (1 - Tdap) DTaP/Tdap/Td Vaccines (1 - Tdap) [facility] Start: 08-27-1961 Hepatitis C screening Hepatitis C Sc reening [facility] Start: 1959 COVID-19 Vaccine (1 of 2) COVID-19 Vaccine (1 of 2) [facility] Work Phone: Start: 1959 COVID-19 Vaccine (1) COVID-19 Vaccin e (1) [facility] Work Phone: Start: 08-27-1953 Diabetic foot examination Diabetes: Foot Exam [facility] Start: 08-27-1953 Glaucoma screening Diabetes: R etinopathy Screening [facility] Start: 08-27-1953 Preventive dental service Diabetes: Dental Exam [facility] Start: 1945 Hepatitis B Vaccines (1 of 3 - 3-dose series) Hepatitis B Vaccines (1 of 3 - 3-dose series) [facility] Start: 1945 Hepatitis C screening Hepatitis C sc reen [facility] Work Phone: Start: 1943 Thyroid stimulating hormone measurement TSH Level [facility] Dressing Order: Xeroform; Daily; Silicone foam borders (multiple sizes) Dressing Order: Xeroform; Daily; Silicone foam borders (multiple sizes) Wound Ostomy Routine Ordered: 02/15/2023 [facility] Work Phone: Comment on above: Ordered: 02/15/2023 EKG 12 Lead EKG 12 Lead ECG Routine 02/01/2019 7:40 PM EDT [facility] [place] [place] Patient referral [facility] Work Phone: Tissue exam [facility] Work Phone: Comment on above: Release Upon Ismaelin g for 1 Occurrences starting 12/07/2022, 1 completed Immunizations Immunization Date Immunization Notes Care Provider Jenny gale 03-17-2023 Influenza High-Dose Quadrivalent [facility] 03-17-2023 influenza virus vacc ine, unspecified formulation Felicia Garcia LPN [facility] 03-01-2023 Influenza Vac A&B SA Adj quadrivalent (Fluad) vaccine 0.5 mL Tasneem Whaley MD Work Phone: [facility] 04-26-2022 influenza, high dose seasonal, preservative-free Shiv Lopez MD Work Phone: [facility] 04-26-2022 Pneumococcal Conjuga te PCV20, Pf (Prevnar 20) Shiv Lopez MD Work Phone: [facility] 04-26-2022 influenza virus vacc ine, unspecified formulation Katia Granados AUTOMATION TENDER - FACER OPERATOR Work Phone: [facility] 04-26-2021 COVID-19, Moderna, Primary or Immunocompromised, PF, 100mcg/0.5mL Sommer Chatterjee DPM Work Phone: [facility] Work Phone: 03-31-2021 Influenza, Quadv, adjuvanted, 65 yrs +, IM, PF (Fluad) Sommer Chatterjee DPM Work Phone: [facility] Work Phone: 03-31-2021 pneumococcal polysaccharide vaccine, 23 valent Sommer Chatterjee DPM Work Phone: [facility] Work Phone: 03-31-2021 zoster vaccine recombinant Sommer Chatterjee DPM Work Phone: [facility] Work Phone: 08-27-2020 COVID-19, J&J, PF, 0 .5 mL Shiv Lopez MD Work Phone: [facility] Work Phone: 03-31-2020 influenza virus vacc ine, unspecified formulation [facility] Work Phone: 03-31-2020 Influenza, Quadv, adjuvanted, 65 yrs +, IM, PF (Fluad) Shiv John [facility] Work Phone: 06-03-2019 influenza, high dose seasonal, [facility]2018 influenza, high dose seasonal, preservative-free Darya Berrios [facility] 05-13-2013 influenza virus vacc ine, unspecified formulation Darya Berrios [place], [place] 05-13-2013 influenza virus vacc ine, whole virus Shiv John [facility] Work Phone: 03-09-2012 pneumococcal Conjuga te, unspecified formulation [facility] Work Phone: 03-09-2012 pneumococcal polysaccharide vaccine, 23 valdevonte [facility] 03-09-2012 pneumococcal vaccine , unspecified formulation [facility] 04-13-2010 pneumococcal polysaccharide vaccine, 23 valdevonte [facility] 03-21-2001 pneumococcal polysaccharide vaccine, 23 valdevonte Berrios [place], [place] Payers Date Payer Category Payer Self-pay [id number] 2024 Unknown [id number] 2024 Unknown [id number] 2022 Medicare [employer]NA MEDICARE ADVANTAGE HU[employer] MEDICARE [id number] 2022-Present [address] [place] [address] Medicare HMO [id number] 2020 Medicare [id number]. [id number] 2020 Medicare [id number]. [id number] 2018 Medicare HUMANA MEDICARE HUMANA CHOICE-PPO MEDICARE xxxxxxxxx 2018-Present [address] [address] [place] [address] xxxxxxxxx [id number] Private Health Insurance [facility] [id number] Unknown Unknown [id number] Unknown WE[employer] DUAL ACCESS [id number] Unknown [id number] 2.16.840.1.304616.3.579.2. 462 Unknown [id number] 2.16.840.1.337736.3.579.2. 462 Unknown [id number] 2.16.840.1.614366.3.579.2. 462 Unknown [id number] 2.16.840.1.955792.3.579.2. 462 Unknown [id number] 2.16.840.1.688161.3.579.2. 462 Unknown [id number] 2.16.840.1.076355.3.579.2. 462 Unknown [id number] 2.16.840.1.585630.3.579.2. 462 Unknown [id number] 2.16.840.1.569411.3.579.2. 462 Unknown [id number] 2.16.840.1.573247.3.579.2. 462 Unknown [id number] 2.16.840.1.369176.3.579.2. 462 Unknown [id number] 2.16.840.1.056596.3.579.2. 462 Unknown [id number] 2.16.840.1.403407.3.579.2. 462 Unknown [id number] 2.16.840.1.205188.3.579.2. 462 Unknown [id number] 2.16.840.1.096724.3.579.2. 462 Unknown [id number] 2.16.840.1.124569.3.579.2. 462 Unknown [id number] 2.16.840.1.190413.3.579.2. 462 Unknown [id number] 2.16.840.1.548531.3.579.2. 462 Unknown [id number] 2.16.840.1.714102.3.579.2. 462 Unknown [id number] 2.16.840.1.737611.3.579.2. 462 Unknown [id number] 2.16.840.1.238194.3.579.2. 462 Unknown [id number] 2.16.840.1.742860.3.579.2. 462 Unknown [id number] 2.16.840.1.234805.3.579.2. 462 Unknown [id number] 2.16.840.1.515951.3.579.2. 462 Unknown [id number] 2.16.840.1.775356.3.579.2. 462 Unknown [id number] 2.16.840.1.269979.3.579.2. 462 Unknown [id number] 2.16.840.1.950058.3.579.2. 462 Unknown [id number] 2.16.840.1.315339.3.579.2. 462 Unknown [id number] 2.16.840.1.556191.3.579.2. 462 Unknown [id number] 2.16.840.1.441499.3.579.2. 462 Unknown [id number] 2.16.840.1.495951.3.579.2. 462 Unknown [id number] 2.16.840.1.891336.3.579.2. 462 Social History Date Type Detail Facility Start: 07-13-2020 End: 03-03-2023 Tobacco smoking status WVIS Never smoker [place] Start: 07-13-2020 End: 04-09-2022 Tobacco use and exposure Never used [facility] Phone: Start: 07-13-2020 End: 06-30-2022 Alcohol intake Current drinker of alcohol (finding) [facility] Phone: Start: 01-13-2015 Alcohol Comment Social [place], [place] Start: 1945 Sex Assigned At Female [facility] Work Phone: Start: 08-30-2021 End: 02-28-2023 Exposure to SARS-CoV-2 (event) Not sure [facility] Work Phone: Start: 01-18-2019 End: 12-13-2022 Alcohol intake Yes [facility] Sex Assigned At Not on file [facility] Start: 02-01-2019 End: 03-03-2023 Tobacco smoking status [facility]IS Unknown if ever smoked [facility] Start: 10-14-2020 End: 12-13-2022 Alcohol intake [facility] [employer] Start: 02-16-2021 End: 04-26-2022 History SDOH Alcohol Frequency 1 [facility] Work Phone: Start: 02-15-2021 End: 04-26-2022 History SDOH Financial 3 [facility] Work Phone: Start: 02-15-2021 End: 04-26-2022 History SDOH Transport Med 2 [facility] Work Phone: Start: 04-09-2022 Alcohol Comment social [facility] Within the last year , have you been afraid of your partner or ex-partner? No [facility] How often to you hav e a drink containing alcohol? 2-4 times a month [facility] How many standard dr inks containing alcohol do you have on a typical day? 1 or 2 [facility] How often do you hav e 6 or more drinks on 1 occasion? Never [facility] How hard is it for y ou to pay for the very basics like food, housing, medical care, and heating Hard [facility] (I/We) worried jagruti er (my/our) food would run out before (I/we) got money to buy more. Never true [facility] In the past 12 month s, has lack of transportation kept you from medical appointments or from getting medications? No [facility] Start: 12-07-2022 Alcohol Comment social; 1 mixed drink every 2 weeks [facility] Start: 04-07-2022 Gender identity Identifies as female gender (finding) [facility] Start: 04-07-2022 Sexual orientation Heterosexual (finding) [facility] Do you feel stress - tense, restless, nervous, or anxious, or unable to sleep at night because your mind is troubled all the time - these days [OSQ] Only a little [facility] Are you now , , , , never or living with a partner? [facility] Start: 09-18-2024 End: 10-14-2024 Sex Female (finding) [facility] Medical Equipment Procedure Code Equipment Code Equipment Origin al Text Equipment Identifier Dates Test blood sugar 4 times a day [id number] Start: 03-25-2020 End: 10-01-2020 2 daily [id number] Start: 03-20-2019 Test blood sugar 4 times daily [id number] Start: 01-01-2019 test blood sugar 4 times daily [id number] Start: 01-13-2020 300 each by Does not apply route 4 times daily [id number] Start: 01-01-2019 ASSURE COMFORT LANCETS 30G MISC [id number] Start: 09-07-2016 1 each by In Vit ro route 4 times daily [id number] Start: 01-01-2019 4 times a day [id number] Start: 09-22-2017 2 daily [id number] Start: 01-03-2019 4 times a day [id number] Start: 07-25-2018 1 each by In Vit ro route 4 times daily as needed (patient tests four times daily and as needed) Patient tests QID [id number] Start: 03-01-2021 Test blood sugar 4 times daily [id number] Start: 12-18-2020 1 each by In Vit ro route 4 times daily Accu-check [facility] [id number] Start: 06-22-2021 End: 08-05-2021 Test blood sugar 3 times a day.PLEASE FILL FOR QUIK TEST STRIPS [id number] Start: 09-09-2021 [id number] Start: 01-10-2022 End: 03-03-2023 Goals Date Patient [...] Facility 03-18-2023 Functional status Ambulates;Wilson r;Bathroom Privilege [facility] Work Phone: Mental Status Date Assessment Result Facility 03-18-2023 Cognitive function Voice/Name [facility] Work Phone: 03-18-2023 Cognitive function Appropriate;Tayler fonseca [facility] Work Phone: Clinical Notes 06-30-2022 to 12-29-2023 Felicia Garcia LPN - 12/29/2023 1:02 PM EDTRyolanda Garcia LPN - 12/29/2023 1:02 PM EDTAshia Dumont - 12/29/2023 1:02 PM EDT Note Date & Type Note Facility 12-29-2023 History of Presen t illness Narrative Please schedule AWV. documented in this encounter [facility] 12-29-2023 History of Presen t illness Narrative Please schedule AWV. Called patient---phone number is not working--sent letter by mail. documented in this encounter [facility] 05-19-2023 Note THE PT. WAS SCHEDULE D FOR AN OUTREACH TODAY. EMR REVIEWED. CM CALLED AND SPOKE WITH A STAFF MEMBER AT [facility] AND THE PT. IS STILL ADMITTED TO THE RETIREMENT FACILITY. CM WILL CONTINUE TO FOLLOW-UP WITH THE PT. ONCE SHE IS DISCHARGED TO HOME. [facility] 05-03-2023 Note THE PT. WAS SCHEDULE D FOR AN OUTREACH TODAY. EMR REVIEWED. CM CALLED AND SPOKE WITH A STAFF MEMBER AT [facility] AND THE PT. IS STILL ADMITTED TO THE RETIREMENT FACILITY. CM WILL CONTINUE TO FOLLOW-UP WITH THE PT. ONCE SHE IS DISCHARGED TO HOME. [facility] 03-29-2023 Note Referral from [employer] Daily Census Report. Patient with recent admit to [facility] 02/28-03/03 with LING/functional decline and was discharged to [facility] SNF. Patient with several chronic diagnoses. Will send referral to [facility] Shari BARROW, for further chart review and potential ongoing CM. [facility] 03-17-2023 Discharge summary Note Date/Time March 15, 2023 7:15pm [facility] Medical Records Department [address] [place] [address] Discharge Summary 03/15/231913 MR#: [id number] Acct: [id number] Name: RADHA SANDOVAL Rep #:[id number] : 1945 77 From: Baljit Jaffe MD PCP: Dr. Shiv Lopez MD Status:ADM IN Location: [place] [address] Providers Date of Admission: 03/03/23 Primary Care [...] - Buspar 5mg bid prn, stable chronic residential use, GDR not recommended. * Vitamin D [...] Depression - Paroxetine 20mg qhs, stable chronic manager benefit use, GDR not recommended. * Restless Leg [...] unit/mL subcutaneous solution 19 unit subcut DAILY Zjiymsdr49/15/23 insulin lispro 100 unit/mL subcutaneous pen (Humalog [...] cellulitis bilateral lower extremities. Discharge to [facility] 03/18/2023, intermediate, Part B therapies. Physical [...] Uncontrolled pain Additional Instructions: Discharge to [facility] 03/18/2023, intermediate, Part B therapies. Meaningful Use Info Meaningful Use Diagnoses (Choose all that apply): None applicable Discharge Plan Admission Admit Date/Time: 03/03/23 13:30 Primary Reason for Your Visit: Debility. Attending Provider: Baljit Jaffe Chi Primary Care Provider: Shiv Lopez Consulting Providers: Omar Huitron Instructions Additional Instructions / Restrictions: Discharge to [facility] 03/18/2023, intermediate, Part B therapies. Discharge [...] before D/C Order can be placed): NonSkilled [place] 03/15/231933 <Electronically signed by Baljit Jaffe [...] bid x 10 days, culture pending at [facility] lab. 03/17/23 1545<Electronically signed by Baljit Jaffe MD> Cosigner Signature (if applicable): cc: Dr. Shiv Lopez MD; Dr. Baljit Jaffe MD ~* Signed [facility] Work Phone: 1(843) 608-986409-27-2023 Discharge summary Author Baljit Jaffe [facility] March 15, 2023 7:35pm Note Date/Time March 15, 2023 7:35pm [facility] Medical Records Department [address] [place] [address] Transfer to [facility] Care MR#: [id number] Acct: [id number] Name: RADHA SANDOVAL Rep #:[id number] : 1945 77 From: Baljit Jaffe MD PCP: Dr. Shiv Lopez MD Status:ADM IN Certification of patient admission REQUIRED AT TIME OF ADMISSION. I CERTIFY THAT POST-HOSPITAL ECF SERVICES ARE REQUIRED TO BE GIVEN ON AN IN-PATIENT BASIS BECAUSE OF THE ABOVE NAMED PATIENT'S NEED FOR [facility] CARE ON A CONTINUING BASIS FOR THE CONDITION(S) FOR WHICH HE/SHE WAS RECEIVING IN-PATIENT HOSPITAL SERVICES PRIOR TO HIS/HER TRANSFER TO THE ECF. 03/15/231934<Electronically signed by Baljit aJffe MD> Diet Diet Order/Speech Therapy: 03/04/23 14:56 [...] - Buspar 5mg bid prn, stable chronic manager benefit use, GDR not recomme nded. * Vitamin [...] Depression - Paroxetine 20mg qhs, stable chronic residential use, GDR not recommended. * Restless Leg [...] Additional Instructions / Restrictions: Discharge to [facility] 03/18/2023, intermediate, Part B therapies. Discharge [...] ALEXI Huitron; Dr. Shiv Lopez MD ~ [facility] Work Phone: 1([phone]) 105-658009-27-2023 NotePlease send her immunization record [facility]09-20-2023 Consult note Author Shine Rojas [facility] March 08, 2023 11:33am Note Date/Time March 08, 2023 11:33am [facility] Medical Records Department [address] [place] [address] Consultation 03/08/23 1130 MR#: [id number] Acct: [id number] Name: RADHA SANDOVAL Rep #:[id number] : 1945 77 From: Shine Rojas DPM PCP: Dr. Shiv Lopez MD Status:ADM IN Location: [place] [address] Assessment & Plan Assessment/Plan (1) Type 2 [...] controlled today not causing patient any issues. REPLACED BY [facility] Medical History Anemia Arthritis Chronic pain Chronic [...] unit/mL subcutaneous solution 19 unit subcut DAILY Hhuqenzn49/15/23 [History Last Taken 03/03/23] insulin lispro 100 [...] Lopez MD; Dr. Baljit Jaffe MD~ Signed [facility] Work Phone: 1(561) 470-296109-19-2023 Progress note Author Betty Hicks [facility] March 07, 2023 4:16pm Note Date/Time March 07, 2023 3:00pm [facility] Medical Records Department [address] [place] [address] Progress Note - Pharmacy 03/07/23 1456 MR#: [id number] Acct: [id number] Name: RADHA SANDOVAL Rep #:[id number] : 1945 77 From: Betty Hicks PCP: Dr. Shiv Lopez MD Status:ADM IN Location: [place] [address]-1 TCU RX Drug Regimen Review Subjective/Objective Subjective/Objective: [...] 113 Gm Tube TOPICAL 1 applic BID [facility] Administration Protocol Enoxaparin Sodium 40 mg 03/04/23 06:00 03/07/23 06:43 Enoxaparin 40 Mg/0.4 Ml Syringe SC 40 mg DAILY@0600 [facility] Administration Ergocalciferol 1.25 mg 03/10/23 08:00 Ergocalciferol 1.25 Mg (50, 000 Unit) Capsule PO QWEEK [facility] Hydralazine HCl 25 mg 03/03/23 22:00 03/07/23 [...] Cosigner Signature (if applicable): CC: ~ Signed [facility] Work Phone: 1(457) 760-255409-15-2023 History and physical note Author Baljit Jaffe [facility] March 03, 2023 4:39pm Note Date/Time March 03, 2023 3:08pm [facility] Medical Records Department [address] [place] [address] History & Physical Exam 03/03/23 1501 MR#: [id number] Acct: [id number] Name: RADHA SANDOVAL Rep #:[id number] : 1945 77 From: Baljit Jaffe MD PCP: Dr. Shiv Lopez MD Status:ADM IN Location: [facility] TCU06-1 HPI - General General Date of Admission: 03/03/23 Date of Service: 03/03/23 Chief Complaint: Here for rehabilitation. HPI Narrative RADHA SANDOVAL, is a 77 Female who presents with followin02/27/2023 Dr. Shiv Lopez prescribed Augmentin for dysuria, polyuria, low back pain for urinary tract infection. Augmentin not started, symptoms worse, patient presented to ED. 02/28/2023 Admit to [facility]. Low back pain, dysuria, polyuria, weakness. Diabetes with hyperglycemia, weakness, urinary tract infection. IV antibiotics for urinary tract infection. IV fluids, sliding scale insulin for Diabetes Mellitus II. PT/OT for weakness. 03/01/2023 Feels better, weak, pain improved. Continue IV antibiotics. 03/03/2023 Admit to TCU with debility, here for rehabilitation, strengthening, prior to discharge home alone. REPLACED BY [facility] Medical History Anemia Arthritis Chronic pain Chronic [...] unit/mL subcutaneous solution 19 unit subcut DAILY Bnzdtbla03/15/23 [History Last Taken 03/03/23] insulin lispro 100 [...] - Buspar 5mg bid prn, stable chronic residential use, GDR not recommended. * Vitamin D [...] Depression - Paroxetine 20mg qhs, stable chronic residential use, GDR not recommended. * Restless Leg syndrome - Mirapex 0.25mg qhs. 03/03/23 2314 <Electronically signed by Baljit Jaffe MD> Cosigner Signature (if applicable): CC: Dr. Shiv Lopez MD; Dr. Baljit Jaffe MD~ Signed [facility] Work Phone: 1(707) 951-994109-15-2023 History of Present illness Narrative* Randi Marquez RN - 03/03/2023 1:08 PM EDT Discharged via ambulance to [facility] * Randi Marquez RN - 03/03/2023 11:19 AM EDT Report called to pippa at [facility] at [phone] * Jelly Paz APRN - FACER OPERATOR - 03/02/2023 12:54 PM EDT Images from the original note were not included. Department of Internal Medicine Division of Endocrinology, Diabetes, & Metabolism Endocrinology Note Patient Name: Radha Sandoval : 1945 AGE: 77 y.o. Room/Bed: [facility]/[address] Admission Date: 02/28/2023 Visit Date: 03/02/2023 Reason for Endocrine Consult: DM-Uncontrolled Provider/Team Requesting Consult: Dr. Finch PCP: Shiv Lopez MD Outpt Dairy Farm Operator: No ASSESSMENT: Type II diabetes with hyperglycemia, with manager benefit insulin use Postoperative hypothyroidism Patient admitted for [...] before breakfast Patient to discharge to SNF [facility] Outpt Follow Up-- PCP SUBJECTIVE/HPI: CHIEF [...] diagnosis. She has been having diarrhea in 5081-7247, smt severe Glimepiride- started in 2015 Trulicity [...] CHOLHDLRATIO 4 02/16/2021 No results found for: [id number] Lab Results Component Value Date TSH 0.03 (L) 02/27/2023 Radiology reportsas per the Radiologist Radiology: CT abdomen pelvis wo IV contrast Result Date: 02/28/2023 [facility]AL [facility] 1945 [id number] ExamDate/Time: 02/28/2023 13:07 Procedure: CT ABDOMEN PELVIS [...] 12/07/2022 Performed by Avery [place] DO at [facility] ENDOSCOPY EYE SURGERY Bilateral early [...] were not included. Occupational Therapy OCCUPATIONAL THERAPY [facility] ED's Treatment Note Name/MRN: Radha Sandoval ([id number]) Date of : 1945 Age: 77 y.o. Room/Bed: [facility] A Visit #: 1 out of 7 [...] were not included. Hospitalist Progress Note 03/02/2023 [phone]: Please secure chat me for patient care issues. [phone]: Please secure chat [facility] Hospitalist for any issues. Subjective: Admit Date: 02/28/2023 PCP: Shiv Lopez MD Room#: [facility]/B[facility] A Interval History: Tolerating diet. Remains weak. Still urinating frequently. She denies chest pain,sob, cough, abdominal pain, nausea, vomiting, diarrhea, constipation, fevers, or chills. D/w pt Adult diet Regular; Low Sodium (2 gm); 4 carb choices (60 gm/meal) @AILI5DHHXPE@ 24HR INTAKE/OUTPUT: No intake or output data [...] Information Primary Emergency Contact: Angel Roger Address: [address] of [place] Relation: Child GABRIELLE FINCH MD Division of Hospitalist Medicine [facility] PAGER: [employer] chat * Diann Ca Telma, AUTOMATION TENDER - FACER OPERATOR - 03/02/2023 9:31 AM EDT [facility] Inpatient Consult Service Admission Date: 02/28/2023 Assessment Principal Problem: LING (acute kidney injury) (CMS/HCC) ([facility]) Active Problems: Declining functional status Weakness Anxiety Polypharmacy DNR (do not resuscitate) Insomnia Plan Declining functional status -Related to physical deconditioning, UTI, advanced age, diabetes type 2 -Continue PT/OT as able while inpatient -Anticipate d/c to SNF for ongoing daily PT/OT, patient agreeable to go to [facility] Fall Weakness -Multiple risk factors [...] contact guard. Ambulated 30 ft x2. Recommending intermediate facility . Review of Systems Constitutional: Negative [...] 19 Units, SubCUTAneous, q AM, Jelly Paz, AUTOMATION TENDER - FACER OPERATOR, 19 Units at 03/02/23908 Insulin Lispro (Humalog) injection 0-12 Units, 0-12 Units, SubCUTAneous, TID WC, 2 Units at 03/02/23908 AND [DISCONTINUED] Insulin Lispro (Humalog) injection 0-12 Units, 0-12 Units, SubCUTAneous, Nightly, Gabrielle Finch MD, 4 Units at 02/28/232053 Insulin Lispro (Humalog) injection 6 Units, 6 Units, SubCUTAneous, 4x daily AC & HS, Jelly Paz, AUTOMATION TENDER - FACER OPERATOR, 6 Units at 03/02/23604 levothyroxine (Synthroid, Levoxyl) [...] 0.03 (L) 02/27/2023 No results found for: [id number] Lab Results Component Value Date VITD25 17 (L) 03/02/2023 Reviewed: allergies, previous encounters, imaging, active problem lists, medications, and labs * Edelmira Hanna - 03/02/2023 8:23 AM EDT Nutrition rescreen completed. Pt referred to RD for uncontrolled DM, and nutrition supplement per Wound Care. * Monet Mcdonnell, PT - 03/01/2023 3:47 PM EDT Physical Therapy Facility/Department: [address] Physical Therapy Initial Evaluation NAME: Radha Sandoval : 1945 Date of Service: 03/01/2023 Discharge Recommendations: Jail Facility, Continue to assess pending progress PT [...] LING (acute kidney injury) (CMS/HCC) ([facility]). Diagnoses of Pyelonephritis, Polypharmacy, Insomnia, unspecified [...] Device: straight cane Transfer Assistance: Independent Active Stopper Setter: Yes Objective Observation/Palpation Posture: Good Observation: PIV [...] note were not included. Hospitalist Progress Note 03/01/20236992758-2790: Please secure chat me for patient care issues. [phone]: Please secure chat [facility] Hospitalist for any issues. Subjective: Admit Date: 02/28/2023 PCP: Shiv Lopez MD Room#: B1-153/B1-153 A Interval History: Feels better. Weak. Tolerating diet. Pain markedly improved. She denies chest pain, sob, cough, abdominal pain, nausea, vomiting, diarrhea, constipation, fevers, or chills. D/w pt and Geriatrics separately. Adult diet Regular; Low Sodium (2 gm); 4 carb choices (60 gm/meal) @QZSW0SLRESE@ 24HR INTAKE/OUTPUT: No intake or output data [...] Information Primary Emergency Contact: Angel Roger Address: [address] [place] Relation: Child GABRIELLE FINCH MD Division of Hospitalist Medicine [facility] PAGER: [employer] chat * Gunner Roberts OT - 03/01/2023 11:54 AM EDT Images from the original note were not included. Occupational Therapy OCCUPATIONAL THERAPY [facility] ED's Initial Evaluation Name/MRN: Radha Sandoval ([id number]) Evaluation Date: 03/01/2023 Date of : 1945 Admission Date: 02/28/2023 11:30 AM Age: 77 y.o. Room/Bed: [facility] A Discharge Recommendation: SNF and Continue to [...] syndrome) Type 2 diabetes mellitus ([facility]) Varicella Past Surgical History: Past Surgical History: Procedure Laterality Date APPENDECTOMY CHOLECYSTECTOMY 1979 COLONOSCOPY 06/19/2008 COLONOSCOPY W/ BIOPSIES AND POLYPECTOMY N/A 12/07/2022 Performed by Avery [place] DO at [facility] ENDOSCOPY EYE SURGERY Bilateral early 90's LUNG REMOVAL, PARTIAL Left ROTATOR CUFF REPAIR Left TONSILLECTOMY Admission Diagnosis: Patient Active Problem List Diagnosis Date Noted LING (acute kidney injury) ([facility]/HCC) (HCC) 02/28/2023 Acute cystitis with hematuria 02/27/2023 [...] 2 diabetes mellitus with hyperglycemia ([facility]) 01/16/2020 Morbidly obese ([facility]) 01/16/2020 Vitamin D deficiency 01/16/2020 Moderate episode of recurrent major depressive disorder ([facility]) 06/03/2019 Chronic renal insufficiency, stage III (moderate) ([facility]) 06/03/2019 Hyperlipidemia with target LDL less [...] Responsibilities: Independent Receives Help From: None Active Stopper Setter: Yes Prior Level of Function ADL Assistance: [...] of Care supervision is transferred to a [facility] Therapy Services Occupational Therapist. Goals and/or treatment plan was established in collaboration with patient/family/other representatives. documented in this [facility]09-15-2023 Hospital course Narrative* Gabrielle Finch MD [...] wound care RECOMMENDED NEXT STEPS: Transferred to [facility] SNF. Continue close monitoring of BG. Avoid [...] mg) by mouth daily. ergocalciferol 1.25 MG (66570 UT) capsule Commonly known as: Vitamin D-2 [...] Your Medications These medications were sent to [facility] [address] [place] [address] Hours: Monday to Monday 10 am to [...] Complexity: follow up within 7-14 calendar days (90064) [] Severe Complexity: follow up within 7 calendar days (24219) FOLLOW UP TESTING, PENDING RESULTS OR REFERRALS AT TRANSITIONAL CARE VISIT: [] Yes [] No PENDING STUDIES: No DISPOSITION: SNF FACILITY/HOME CARE AGENCY NAME: [facility] Follow up with [facility] [address] [facility] [address] [facility] [address] INSTRUCTIONS TO MA/SW: Please call [...] FINCH MD 03/03/2023, 5:28 PM documented in [facility]09-15-2023 NoteDischarge Summary Radha Sandoval : 1945 [...] mg) by mouth daily. ergocalciferol 1.25 MG (20153 UT) capsule Commonly known as: Vitamin D-2 [...] taking these medications amoxicillin-clavulan (more content not included)...[facility] 03-03-2023 Note* Care Coordination - Ester Lipscomb - 03/03/2023 11:21 AM EDT Discharge med list transmitted to [facility] via Careport per TCC request. [id number] Miscellaneous Notes* Restricted notes were excluded * Care Coordination - Ester Lipscomb - 03/03/2023 11:21 AM EDT Discharge med list transmitted to [facility] via Careport per TCC request. * Care Coordination - Unknown Case Management - 03/03/2023 11:20 AM EDT Patient Choice Patient Name: RADHA SANDOVAL Date of : 1945 All Providers Sent Referral Name: [facility] Transitional Care Unit [facility] Address: [address] [place], [place] [id number] Name: [facility] Address: [address] [place], [place] [id number] * Care Coordination - Laura Jackson RN - 03/03/2023 9:33 AM EDT Spoke with pt at bedside regarding POA, pt states she is not interested at this time to complete itand would consider completing at [facility] - did call Rafaela at [facility] to update her as well. 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 Will notify RN and TCC of this in rounds. Notified patient's son via phone of transportation time. SW remains available if any other needs concerns arise. * Care Coordination - Laura Jackson RN - 03/03/2023 7:29 AM EDT Insurance auth obtained for [facility], updated Dr Finch notified via [employer]. * Care Coordination - Laura Jackson RN - 03/02/2023 11:15 AM EDT Received a call from Rafaela at [facility], they are able to accept, pt agreeable. 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 [facility] at this time * Care Coordination - Ester Lipscomb - 03/02/2023 8:40 AM EDT Referral placed to SNF- [facility] via [facility] per TCC request. Await review and response regarding ability to accept. TCC notified. * Care Coordination - Laura Jackson RN - 03/02/2023 8:21 AM EDT Spoke with pt agreeable for referral to [facility] snf and apostolic, BONE GRINDER tasked to complete * Home Care - Tasneem Anaya LPN - 03/01/2023 4:25 PM EDT Senior Communications Engineer following case for Discharge Needs. Therapy states SNF, but Patient wants HC instead. * Care Coordination - Laura Jackson RN - 03/01/2023 10:14 AM EDT Care Managment Initial Assessment Date: 03/01/2023 Patient Name: Radha Sandoval : 1945 Patient Information Source of Information: Patient Cognition/Language: WFL - Within Functional Limits Permission given to speak with patient sales representative church furniture/caregiver as indicated: Yes Confirmation of Payer with patient/family: Yes Payer Name: [employer] [place]: No Confirmation of Primary Care Physician: Confirmed [...] Prescription Coverage: Yes Pharmacy Used: [facility] Medication Management: Independent Transportation/Shopping: Independent Transportation Mode: [...] in SNF but would be able to [facility]. [place] liaison following, TCC to assist and follow as needed. Laura Jackson RN * Care Plan - Anaya Carr RN - 02/28/2023 6:10 PM EDT Problem: Pain - Adult Goal: Verbalizes/displays adequate comfort level or baseline comfort level Outcome: Progressing Problem: Safety - Adult Goal: Free from fall injury Outcome: Progressing documented in this [facility]09-15-2023 Note* Care Coordination - Unknown Case Management - 03/03/2023 11:20 AM EDT Patient Choice Patient Name: RADHA SANDOVAL Date of : 1945 All Providers Sent Referral Name: [facility] Transitional Care Unit SNF Address: [address] [place] [address] Name: [facility] Cheryl. Address: [address] [place] [id number] [id number] Note* Care Coordination - Laura Jackson RN - 03/03/2023 9:33 AM EDT Spoke with pt at bedside regarding POA, pt states she is not interested at this time to complete itand would consider completing at [place] - did call Rafaela at [facility] to update her as well. 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 Will notify RN and TCC of this in rounds. Notified patient's son via phone of transportation time. SW remains available if any other needs concerns arise. [facility] [id number] Note* Care Coordination - Laura Jackson RN - 03/03/2023 7:29 AM EDT Insurance auth obtained for [facility] nursing [facility], updated Dr Finch notified via [employer] Chat. [facility] [id number] Note* Care Coordination - Laura Jackson RN - 03/02/2023 11:15 AM EDT Received a call from Rafaela at [facility], they are able to accept, pt agreeable. 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 [facility] at this time [facility] [id number] NoteHospitalist Progress Note 03/02/2023 [phone]: Please secure chat me for patient care issues. [phone]: Please secure chat [facility] Hospitalist for any issues. Subjective: Admit Date: 02/28/2023 PCP: Shiv Lopez MD Room#: B1-153/B1-153 A Interval History: Tolerating diet. Remains weak. Still urinating frequently. She denies chest pain, sob, cough, abdominal pain, nausea, vomiting, diarrhea, constipation, fevers, or chills. D/w pt Adult diet Regular; Low Sodium (2 gm); 4 carb choices (60 gm/meal) @[id number]@ 24HR INTAKE/OUTPUT: No intake or output data [...] Primary Emergency Contact: Angel Roger Address: [address] [place] Relation: Child GABRIELLE FINCH MD Division of Hospitalist Medicine (more content not included)...[facility]09-14-2023 Note* Care Coordination - Ester Lipscomb - 03/02/2023 8:40 AM EDT Referral placed to [facility] via [facility] per TCC request. Await review and response regarding ability to accept. TCC notified. [facility] [id number] NoteReferral placed to [facility] via [facility] per TCC request. Await review and response regarding ability to accept. TCC notified. [facility]09-14-2023 Note* Care Coordination - Laura Jackson RN - 03/02/2023 8:21 AM EDT Spoke with pt agreeable for referral to [facility] snf and apostolic, BONE GRINDER tasked to complete [facility] [id number] NoteSpoke with pt agreeable for referral to [facility] snf and apostolic, BONE GRINDER tasked to complete [facility]09-13-2023 Note* Home Care - Tasneem Anaya LPN - 03/01/2023 4:25 PM EDT Senior Communications Engineer following case for Discharge Needs. Therapy states SNF, but Patient wants HC instead. [facility] [id number] Consult note* Rosalinda Burrows APRN - JORGE - 03/01/2023 2:34 PM EDT Images from the original note were not included. [facility] Wound Care CONSULT Note Radha [...] 2 diabetes mellitus with hyperglycemia ([facility]) 01/16/2020 Morbidly obese ([facility]) 01/16/2020 Vitamin D deficiency 01/16/2020 Moderate episode of recurrent major depressive disorder ([facility]) 06/03/2019 OAB (overactive bladder) 05/06/2021 Localized edema 10/01/2020 Insomnia 04/06/2015 Dyspnea on exertion 09/09/2021 Muscle spasms of both lower extremities 09/09/2021 Chronic renal insufficiency, stage III (moderate) ([facility]) 06/03/2019 Restless legs syndrome (RLS) 01/14/2015 [...] counseling and surveillance Hyperlipidemia Hyperparathyroidism ([facility]) Malaise and fatigue Morbid obesity ([facility]) Muscle weakness Nevus, non-neoplastic Pain in limb Pure hypercholesterolemia RLS (restless legs syndrome) Type 2 diabetes mellitus (HCC) Varicella PAST SURGICAL HISTORY Past Surgical History: Procedure Laterality Date APPENDECTOMY CHOLECYSTECTOMY 1979 COLONOSCOPY 06/19/2008 COLONOSCOPY W/ BIOPSIES AND POLYPECTOMY N/A 12/07/2022 Performed by Avery Marshall DO at [facility] ENDOSCOPY EYE SURGERY Bilateral early [...] tablet 0 ergocalciferol (Vitamin D-2) 1.25 MG (20221 UT) capsule Take 1 capsule (1.25 mg) [...] Care to follow Please follow up at [facility] wound care [place] after hospital discharge. Thank you for the [...] reflectmy own independent evaluation of this patient. [facility] [id number] Consult note* ELSA Rosenbaum CNP - 03/01/2023 2:34 PM EDT Images from the original note were not included. [facility] Wound Care CONSULT Note Radha [...] 2 diabetes mellitus with hyperglycemia ([facility]) 01/16/2020 Morbidly obese ([facility]) 01/16/2020 Vitamin D deficiency 01/16/2020 Moderate episode of recurrent major depressive disorder ([facility]) 06/03/2019 OAB (overactive bladder) 05/06/2021 Localized edema 10/01/2020 Insomnia 04/06/2015 Dyspnea on exertion 09/09/2021 Muscle spasms of both lower extremities 09/09/2021 Chronic renal insufficiency, stage III (moderate) ([facility]) 06/03/2019 Restless legs syndrome (RLS) 01/14/2015 [...] 12/07/2022 Performed by Avery Marshall DO at [facility] ENDOSCOPY EYE SURGERY Bilateral early [...] tablet 0 ergocalciferol (Vitamin D-2) 1.25 MG (65717 UT) capsule Take 1 capsule (1.25 mg) [...] Care to follow Please follow up at [facility] wound care center after hospital discharge. Thank [...] from the original note were not included. [facility] Geriatric Medicine Inpatient Consult Service Admission Date: 02/28/2023 Admission Status: INPATIENT Chief Complaint: I couldn't get around and they directed me to the hospital because I was peeing constantly from that UTI. Reason for Appointment Geriatrics consulted for functional decline Assessment/Plan Principal Problem: LING (acute kidney injury) (CMS/HCC) ([facility]) Active Problems: Declining functional status Weakness [...] necessary I recommended follow up at our [facility] at [phone]. Call in 2 weeks for memory (re)testing once acute issue(s) resolve - order placed in [facility] for follow-up Other I deferred full [...] accidents, getting lost. Knows she's here at [facility] due to UTI. States she [...] Healthcare Power ofAttorney: No Financial Power of Production Editor: No Living Will:No Code Status: DNRCCA - [...] 12/07/2022 Performed by Avery Marshall DO at [facility] ENDOSCOPY EYE SURGERY Bilateral early [...] Limits Permission given to speak with patient sales representative church furniture/caregiver as indicated: Yes Confirmation of Payer with [...] Prescription Coverage: Yes Pharmacy Used: [facility] Medication Management: Independent Transportation/Shopping: Independent Transportation Mode: [...] recommendations communicated to primary service I used [employer] messaging to message Dr. Finch on 03/01/23 at 12:35 to notify that geriatrics consult note has been completed and to page or call my personal cell with any questions. * Michelle Valle RN - 03/01/2023 9:33 AM EDTAssociated Order(s): IP CONSULT TO SHIPPING CLERK CRATING This patient is not a new diabetic or new to insulin therapy and therefore does not meet our current criteria for the inpatient diabetes education service. The clinical bedside RN should provide any necessary diabetes education using the Diabetes SurvivalSkills Booklet available on the unit. Please consider a dietary consult if appropriate and if not already ordered. Contact [facility] to Beds pharmacist for assistance if a new glucometer or any associated supplies are needed. Thank you. Elder MUÑOZ,BSN,[facility] * Jelly Paz APRN - FACER OPERATOR - 03/01/2023 8:03 AM EDTAssociated Order(s): IP CONSULT TO ENDOCRINOLOGY Department of Internal Medicine Division of Endocrinology, Diabetes, & Metabolism Endocrinology Note Patient Name: Radha Sandoval : 1945 AGE: 77 y.o. Room/Bed: [facility]153/[facility] A Admission Date: 02/28/2023 Visit Date: 03/01/2023 Reason for Endocrine Consult: DM-Uncontrolled Provider/Team Requesting Consult: Dr. Finch PCP: Shiv Lopez MD Outpt Dairy Farm Operator: No ASSESSMENT: Type II diabetes with hyperglycemia, with residential insulin use Postoperative hypothyroidism PLAN: Humalog 6 [...] diagnosis. She has been having diarrhea in 2235-5226, smt severe Glimepiride- started in 2015 Trulicity [...] CHOLHDLRATIO 4 02/16/2021 No results found for: [id number] Lab Results Component Value Date TSH 0.03 (L) 02/27/2023 Radiology reportsas per the Radiologist Radiology: CT abdomen pelvis wo IV contrast Result Date: 02/28/2023 Patient Name: RADHA SANDOVAL : 1945 [facility]#: [id number] ExamDate/Time: 02/28/2023 13:07 Procedure: CT ABDOMEN PELVIS [...] 12/07/2022 Performed by Avery Marshall DO at [facility] ENDOSCOPY EYE SURGERY Bilateral early [...] this note. documented in this [facility]09-13-2023 NoteHospitalist Progress Note 03/01/[id number]: Please secure chat me for patient care issues. [phone]: Please secure chat [facility] Hospitalist for any issues. Subjective: Admit Date: 02/28/2023 PCP: Shiv Lopez MD Room#: B1-153/B1-153 A Interval History: Feels better. Weak. Tolerating diet. Pain markedly improved. She denies chest pain, sob, cough, abdominal pain, nausea, vomiting, diarrhea, constipation, fevers, or chills. D/w pt and Geriatrics separately. Adult diet Regular; Low Sodium (2 gm); 4 carb choices (60 gm/meal) @[id number]@ 24HR INTAKE/OUTPUT: No intake or output data [...] Contact Information Primary Emergency (more content not included)...[facility] 03-01-2023 Hospital Discharge instructions* Discharge Instructions* Adam [...] You can also try over the counter (SHELTER brand like [employer] Made) melatonin 3mg at [...] Information Primary Emergency Contact: Angel Roger Address: [address] [place] Relation: Child Past Surgical History: Past Surgical History: Procedure Laterality Date APPENDECTOMY CHOLECYSTECTOMY 1979 COLONOSCOPY 06/19/2008 COLONOSCOPY W/ BIOPSIES AND POLYPECTOMY N/A 12/07/2022 Performed by Avery Marshall DO at [facility] ENDOSCOPY EYE SURGERY Bilateral early [...] List * (Principal) LING (acute kidney injury) ([facility]) ([facility]) Diabetes mellitus due to underlying condition with diabetic chronic kidney disease ([facility]) DDD (degenerative disc disease), lumbar Chronic right-sided low back pain with right-sided sciatica Urinary frequency Chronic left shoulder pain Other chronic sinusitis Gastrointestinal bleed Hypokalemia Wound of right buttock Acute cystitis with hematuria Diarrhea Declining functional status Weakness Anxiety (Chronic) Polypharmacy (Chronic) DNR (do not resuscitate) Dependent edema Uncontrolled type 2 diabetes mellitus with hyperglycemia ([facility]) Morbidly obese ([facility]) Vitamin D deficiency Moderate episode of recurrent major depressive disorder ([facility]) OAB (overactive bladder) Localized edema Insomnia Dyspnea on exertion Muscle spasms of both lower extremities Chronic renal insufficiency, stage III (moderate) ([facility]) Restless legs syndrome (RLS) Hyperlipidemia with [...] assistance Toileting Minimal assistance Feeding Minimal assistance 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 Minimal assistance Med Delivery yes Wound Care Documentation and Therapy: Wound/Incision 02/15/23 Pressure Injury Buttock Right;Midline (Active) Site Assessment Blanchable erythema;Clean;Dry;[place];Red 03/02/23 1100 Wound Length (cm) 1 cm [...] Score: @READMISSIONRISKDETAILS@ Discharging to Facility/ Agency Name: [facility] Donn Calderon Open 24 hours Dialysis Facility (if applicable) Name: Address: Dialysis Schedule: Phone: Fax: Form Setter/Insecticide Mixer signature: ICIAN SECTION Prognosis: good Condition at [...] PHYSICIAN SIGNATURE: documented in this [facility]09-13-2023 Consult note* Adam Holt MD - 03/01/2023 11:26 AM EDTAssociated Order(s): IP CONSULT TO GERIATRICS Images from the original note were not included. [facility] Inpatient Consult Service Admission Date: 02/28/2023 Admission Status: INPATIENT Chief Complaint: I couldn't get around and they directed me to the hospital because I was peeing constantly from that UTI. Reason for Appointment Geriatrics consulted for functional decline Assessment/Plan Principal Problem: LING (acute kidney injury) ([facility]/HCC) ([facility]) Active Problems: Declining functional status Weakness [...] necessary I recommended follow up at our [facility] at [phone]. Call in 2 weeks for memory (re)testing once acute issue(s) resolve - order placed in [facility] for follow-up Other I deferred full [...] accidents, getting lost. Knows she's here at [facility] due to UTI. States she [...] Healthcare Power ofAttorney: No Financial Power of Production Editor: No Living Will:No Code Status: DNRCCA - [...] 12/07/2022 Performed by Avery Marshall DO at [facility] ENDOSCOPY EYE SURGERY Bilateral early [...] Limits Permission given to speak with patient sales representative church furniture/caregiver as indicated: Yes Confirmation of Payer with patient/family: Yes Payer Name: [employer] [place]: No Confirmation of Primary Care Physician: Confirmed [...] Prescription Coverage: Yes Pharmacy Used: [facility] Medication Management: Independent Transportation/Shopping: Independent Transportation Mode: [...] recommendations communicated to primary service I used Twitsaleaging to message Dr. Finch on 03/01/23 at 12:35 to notify that geriatrics consult note has been completed and to page or call my personal cell with any questions. [facility] [id number] Note* Care Coordination - Laura Jackson RN - 03/01/2023 10:14 AM EDT Care Managment Initial Assessment Date: 03/01/2023 Patient Name: Radha Sandoval : 1945 Patient Information Source of Information: Patient Cognition/Language: WFL - Within Functional Limits Permission given to speak with patient sales representative church furniture/caregiver as indicated: Yes Confirmation of Payer with patient/family: Yes Payer Name: [employer] [place]: No Confirmation of Primary Care Physician: Confirmed [...] Prescription Coverage: Yes Pharmacy Used: [facility] Medication Management: Independent Transportation/Shopping: Independent Transportation Mode: [...] in SNF but would be able to [facility]. [facility] liaison following, TCC to assist and follow as needed. Laura Jcakson RN [facility] [id number] Consult note* Michelle Valle RN - 03/01/2023 9:33 AM EDT Associated Order(s): IP CONSULT TO SHIPPING CLERK CRATING This patient is not a new diabetic [...] associated supplies are needed. Thank you. Elder MUÑOZ,BSN,[facility] [id number] Consult note* Jelly Paz, AUTOMATION TENDER - [facility] - 03/01/2023 8:03 AM EDTAssociated Order(s): IP CONSULT TO ENDOCRINOLOGY Department of Internal Medicine Division of Endocrinology, Diabetes, & Metabolism Endocrinology Note Patient Name: Radha Sandoval : 1945 AGE: 77 y.o. Room/Bed: [facility]/[address] Admission Date: 02/28/2023 Visit Date: 03/01/2023 Reason for Endocrine Consult: DM-Uncontrolled Provider/Team Requesting Consult: Dr. Finch PCP: Shiv Lopez MD Outpt Dairy Farm Operator: No ASSESSMENT: Type II diabetes with hyperglycemia, with manager benefit insulin use Postoperative hypothyroidism PLAN: Humalog 6 [...] diagnosis. She has been having diarrhea in 2359-6745, smt severe Glimepiride- started in 2015 Trulicity [...] chloride, 75 mL/hr, Last Rate: 75 mL/hr (02/28/235) PRN Meds:PRN medications: acetaminophen OR acetaminophen, albuterol, [...] CHOLHDLRATIO 4 02/16/2021 No results found for: [id number] Lab Results Component Value Date TSH 0.03 (L) 02/27/2023 Radiology reportsas per the Radiologist Radiology: CT abdomen pelvis wo IV contrast Result Date: 02/28/2023 [facility]: [facility]AL : 1945 [id number] ExamDate/Time: 02/28/2023 13:07 Procedure: CT ABDOMEN PELVIS [...] 12/07/2022 Performed by Avery Marshall DO at [facility] ENDOSCOPY EYE SURGERY Bilateral early [...] state/prognosis on the date of this note. [facility] [id number] NoteProblem: Pain - Adult Goal: Verbalizes/displays adequate comfort level or baseline comfort level Outcome: Progressing Problem: Safety - Adult Goal: Free from fall injury [facility]: [facility] Plan of care note* Care Plan - Anaya Carr RN - 02/28/2023 6:10 PM EDT Problem: Pain - Adult Goal: Verbalizes/displays adequate comfort level or baseline comfort level Outcome: Progressing Problem: Safety - Adult Goal: Free from fall injury Outcome: Progressing [facility] [id number] History and physical note* Gabrielle Finch MD [...] 12/07/2022 Performed by Avery Marshall DO at [facility] ENDOSCOPY EYE SURGERY Bilateral early [...] None Comment: W/ UNTIL HIS ADMITTANCE TO [facility] Other Topics Concern Not on file Social [...] tablet 0 ergocalciferol (Vitamin D-2) 1.25 MG (12814 UT) capsule Take 1 capsule (1.25 mg) [...] Primary Emergency Contact: Angel Roger Address: [address] [place] Relation: Child Code status: Prior [...] H&P to the patient's PCP. Thank you. [facility] [id number] NoteAttending History and Physical Admit Date: 02/28/2023 [...] 12/07/2022 Performed by Avery Marshall DO at [facility] ENDOSCOPY EYE SURGERY Bilateral early LUNG REMOVAL, [...] None Comment: W/ UNTIL HIS ADMITTANCE TO [facility] Other Topics Concern Not on file Social [...] LATHA COLEY High Blood Pressure Father LATHA COELY Asthma Father LATHA COLEY Hypertension Father LATHA [...] tablet 0 ergocalciferol (Vitamin D-2) 1.25 MG (81022 UT) capsule Take 1 capsule (1.25 mg) [...] (150 mcg) by m (more content not included)...[facility] [id number] History and physical note* Gabrielle Finch MD [...] 12/07/2022 Performed by Avery Marshall DO at [facility] ENDOSCOPY EYE SURGERY Bilateral early [...] None Comment: W/ UNTIL HIS ADMITTANCE TO [facility] Other Topics Concern Not on file Social [...] tablet 0 ergocalciferol (Vitamin D-2) 1.25 MG (72711 UT) capsule Take 1 capsule (1.25 mg) [...] Primary Emergency Contact: Angel Roger Address: [address] [place] Relation: Child Code status: Prior [...] Thank you. documented in this [facility]09-12-2023 Emergency department Note* Tasneem Whaley MD - 02/28/2023 11:28 AM EDT [facility] 1E MED SURG EMERGENCY DEPARTMENT [...] 12/07/2022 Performed by Avery Marshall DO at [facility] ENDOSCOPY EYE SURGERY Bilateral early [...] shoulder pain ergocalciferol (Vitamin D-2) 1.25 MG (65520 UT) capsule Take 1 capsule (1.25 mg) [...] None Comment: W/ UNTIL HIS ADMITTANCE TO [facility] Social Determinants of Health Financial Resource Strain: [...] min Stress: No Stress Concern Present (02/28/2023) [place] of Occupational Health - Occupational Stress Questionnaire [...] Addressed: LING (acute kidney injury) (CMS/[facility]) ([facility]): complicated acute illness or injury Pyelonephritis: [...] 03/02/23 002 Pyelonephritis LING (acute kidney injury) ([facility]) ([facility]) CONSULTS: IP CONSULT TO ENDOCRINOLOGY IP CONSULT TO GERIATRICS IP CONSULT TO SHIPPING CLERK CRATING PHARMACY TO CONSULT INSOMNIA PROCEDURES: Unless otherwise noted below, none Procedures FINAL IMPRESSION 1. LING (acute kidney injury) (CMS/HCC) ([facility]) 2. Pyelonephritis 3. Polypharmacy 4. Insomnia, unspecified type 5. Pressure ulcer of right buttock, stage 3 ([facility]) DISPOSITION/PLAN DISPOSITION Admit 02/28/2023 03:42:32 PM PATIENT REFERRED TO: [facility] Geriatrics [address] [facility] [address] DISCHARGE MEDICATIONS: Current Discharge Medication List @[facility]([id number]:LAST:1)@ (Please note: Portions of this note were [...] urination. Was recently admitted. documented in this [facility]09-12-2023 Emergency department Triage note* Farrah Londono RN - 02/28/2023 11:28 AM EDT Pt presents for admission per her PCP. Was sent to get kidneys evaluated per pt. Pt endorses lower back pain and burning and pain with urination. Was recently admitted. [facility] [id number] Physician Emergency department Note* Tasneem Whaley MD - 02/28/2023 11:28 AM EDT [facility] 1E MED SURG EMERGENCY DEPARTMENT [...] 12/07/2022 Performed by Avery Marshall DO at [facility] ENDOSCOPY EYE SURGERY Bilateral early [...] shoulder pain ergocalciferol (Vitamin D-2) 1.25 MG (36827 UT) capsule Take 1 capsule (1.25 mg) [...] None Comment: W/ UNTIL HIS ADMITTANCE TO [facility] Social Determinants of Health Financial Resource Strain: [...] min Stress: No Stress Concern Present (02/28/2023) [place] of Occupational Health - Occupational Stress Questionnaire [...] LING (acute kidney injury) (CMS/HCC) ([facility]): complicated acute illness or injury Pyelonephritis: [...] LING (acute kidney injury) (CMS/HCC) ([facility]) CONSULTS: IP CONSULT TO ENDOCRINOLOGY IP CONSULT TO GERIATRICS IP CONSULT TO SHIPPING CLERK CRATING PHARMACY TO CONSULT INSOMNIA PROCEDURES: Unless otherwise noted below, none Procedures FINAL IMPRESSION 1. LING (acute kidney injury) (CMS/HCC) ([facility]) 2. Pyelonephritis 3. Polypharmacy 4. Insomnia, unspecified type 5. Pressure ulcer of right buttock, stage 3 ([facility]) DISPOSITION/PLAN DISPOSITION Admit 02/28/2023 03:42:32 PM PATIENT REFERRED TO: [facility] Geriatrics [address] [facility] [address] DISCHARGE MEDICATIONS: Current Discharge Medication List @[facility]([id number]:LAST:1)@ (Please note: Portions of this note were completed with a voice recognition program. Efforts were made to edit the dictations but occasionally words and phrases are mis-transcribed.) Form [id number] Tasneem Whaley MD (electronically signed) Emergency Medicine Provider Tasneem Whaley MD 03/02/23 0025 [facility] [id number] Telephone encounter Note* Telephone Encounter - ELSA Arriaza CNP - 02/28/2023 8:30 AM EDT Noted. Patient already notified. See previous TE if needed. [facility] [id number] Miscellaneous Notes* Telephone Encounter - ELSA Arriaza CNP - 02/28/2023 8:30 AM EDT Noted. Patient already notified. See previous TE if needed. * Telephone Encounter - Imelda Mann RN - 02/28/2023 7:15 AM EDT S: Christine from [employer] [facility] [phone] spoke with [facility] nurse regarding critical lab results B: [...] results Protocols used: PCP Call - No [id number] documented in this encounterSPike Community HospitalGthssu44-28-0116 Telephone encounter Note* Telephone Encounter - Imelda Mann RN - 02/28/2023 7:15 AM EDT S: Christine from [employer] lab [phone] spoke with [facility] nurse regarding critical lab results B: Glucose A: Blood was drawn yesterday. Glucose was 524, resulting this morning. Verified with repeat analysis. The lab work was ordered by Katia Granados CNP. R: Since office is open, called back line and spoke with Katia Schulz's nurse. Result given. No further instructions to the [facility] nurse. Reason for Disposition Lab or radiology calling with CRITICAL test results Protocols used: PCP Call - No [id number] [facility] [id number] Evaluation + Plan note* Assessment & Plan Note - ELSA Arriaza CNP - 02/27/2023 5:18 PM EDTAssociated Problem(s): Diarrhea No fever or chills, abdomen soft. Unknown etiology. Will check CBC and CMP. Consider stool culture if symptoms continue [facility] [id number] Miscellaneous Notes* Assessment & Plan Note - [...] will treat documented in this [facility]09-11-2023 Evaluation + Plan note* Assessment & Plan Note - ELSA Arriaza CNP - 02/27/2023 5:17 PM EDTAssociated Problem(s): Chronic renal insufficiency, stage III (moderate) [facility] [id number] Evaluation + Plan note* Assessment & Plan Note - ELSA Arriaza CNP - 02/27/2023 5:17 PM EDTAssociated Problem(s): Acute cystitis with hematuria UA positive nitrites and leuks moderate blood, will start antibiotic therapy sent for culture [facility] CampusZxnyqw20-47-3590 Evaluation + Plan note* Assessment & Plan Note - ESLA Arriaza CNP - 02/27/2023 5:17 PM EDTAssociated Problem(s): Hypertension Controlled. Continue amlodipine 10 mg daily and lisinopril 40 mg daily [facility] CampusTddmga79-61-7911 Evaluation + Plan note* Assessment & Plan Note - ELSA Arriaza CNP - 02/27/2023 5:16 PM EDTAssociated Problem(s): Hypothyroidism Will check TSH today due to recent fatigue [place] [id number] Evaluation + Plan note* Assessment & Plan Note - ELSA Arriaza CNP - 02/27/2023 5:15 PM EDTAssociated Problem(s): Wound of right buttock Patient has not followed up with wound center upon visualization today wound unchanged, advised to keep area as clean as possible with frequent changes of incontinence pads [facility] CampusJqzpas48-09-4801 Evaluation + Plan note* Assessment & Plan Note - ELSA Arriaza CNP - 02/27/2023 5:14 PM EDTAssociated Problem(s): 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 Patient having difficulties with compliance. Continue insulin regimen. Possible increased glucose due to urinary tract infection we will treat [facility] CampusThpkvp22-14-5126 History of Present illness Narrative* Magda Lomas [...] for as directed pending test results. SUBJECTIVE/OBJECTIVE: [facility] - Radha Sandoval (: 1945) is [...] her blood sugar today, noted In office fskfm-gv-vvic testing 494. Urination Increased frequency, dysuria intermittently. [...] out soon. Has Maximino (son) work in [employer]. He may be able to help her [...] Lopez MD ergocalciferol (Vitamin D-2) 1.25 MG (28174 UT) capsule Take 1 capsule (1.25 mg) [...] by mouth daily. 02/07/23 Yes Katia Bridenthal, AUTOMATION TENDER - FACER OPERATOR PARoxetine (Paxil) 20 MG tablet Take 1 tablet (20 mg) by mouth every morning. 12/08/22 Yes Katia Rosaline AUTOMATION TENDER - JORGE potassium chloride CR (K-Tab) 20 MEQ ER tablet Take 20 mEq by mouth daily. Do not crush, chew, or split. Yes Historical Provider, pramipexole (Mirapex) 0.125 MG tablet Take 2 tablets (0.25 mg) by mouth Nightly. 01/13/23 03/14/23 Yes Katia Gregenthal, AUTOMATION TENDER - FACER OPERATOR rosuvastatin (Crestor) 10 MG tablet Take 1 tablet (10 mg) by mouth daily. 12/08/22 Yes Katia Gregenthal, AUTOMATION TENDER - FACER OPERATOR hydrOXYzine HCl (Atarax) 25 MG tablet Take 1 tablet (25 mg) by mouth every 8 hours as needed for anxiety. 12/08/22 02/07/23 Katia Gregenthal, AUTOMATION TENDER - FACER OPERATOR zolpidem (Ambien) 10 MG tablet Take 1 tablet (10 mg) by mouth Nightly as needed for sleep. Do not start before December 22, 2022. 12/22/22 02/07/23 Katia Ronnyal, AUTOMATION TENDER - FACER OPERATOR insulin aspart (NovoLOG FLEXPEN) 100 UNIT/ML pen [...] 5:19 PM documented in this [facility]09-11-2023 Evaluation note* Diagnosis Diabetes mellitus due [...] Diarrhea, unspecified type documented in this encounter [facility] CampusOxpxsm34-96-0118 Telephone encounter Note* Telephone Encounter - Nan Bush RN - 02/23/2023 12:49 PM EDT S: Patient spoke with [facility] nurse regarding High Blood Sugar number [...] seen Protocols used: Diabetes - High Blood Goyfv-RSNQX-ZL [facility] Fafupn30-96-8450 Miscellaneous Notes* Telephone Encounter - Nan Bush RN - 02/23/2023 12:49 PM EDT S: Patient spoke with [facility] nurse regarding High Blood Sugar number [...] seen Protocols used: Diabetes - High Blood Zkavf-WIADU-XI documented in this [facility]08-30-2023 Hospital Discharge instructions* Patient Instructions* Tejal Henry RN - 02/15/2023 12:45 PM EDT Return in [address] Magallanes If you have any questions or concerns, please call our wound center at [phone] or [phone]. Offloading Try to avoid pressure and sheering [...] improve healing. documented in this [facility]08-30-2023 [facility] Care Visit - New Patient Progress Note [...] 12/07/2022 Performed by Avery Marshall DO at [facility] ENDOSCOPY EYE SURGERY Bilateral early [...] Rfl: 0 ergocalciferol (Vitamin D-2) 1.25 MG (52798 UT) capsule, Take 1 capsule (1.25 mg) [...] None Comment: W/ UNTIL [facility] ADMITTANCE TO [facility] Other Topics Concern Not on file Social [...] Blood Pressure Father LATHA (more content not included)...[facility]08-22-2023 Evaluation + Plan note* Assessment & Plan Note - ELSA Arriaza CNP - 02/07/2023 12:51 PM EDTAssociated Problem(s): Chronic left shoulder pain Chronic. Refill mobic. [facility] CampusPtjqeh46-84-8775 Evaluation + Plan note* Assessment & Plan Note - ELSA Arriaza CNP - 02/07/2023 12:51 PM EDTAssociated Problem(s): Wound of right buttock Avoid pressure to area, avoid friction, keep area as dry as possible. Refer to wound clinic. [facility] CampusYolkeu67-59-1569 Miscellaneous Notes* Assessment & Plan Note - ELSA Arriaza CNP - 02/07/2023 12:51 PM EDTAssociated Problem(s): Chronic left shoulder pain Chronic. Refill mobic. * Assessment & Plan Note - ELSA Arriaza CNP - 02/07/2023 12:51 PM EDTAssociated Problem(s): Wound of right buttock Avoid pressure to area, avoid friction, keep area as dry as possible. Refer to wound clinic. documented in this [facility]08-22-2023 History of Present illness Narrative* ELSA [...] Arriaza CNP ergocalciferol (Vitamin D-2) 1.25 MG (53936 UT) capsule Take 1 capsule (1.25 mg) [...] by mouth daily. 01/13/23 04/13/23 Katia Rosaline AUTOMATION TENDER - FACER OPERATOR lisinopril 40 MG tablet Take 1 tablet (40 mg) by mouth daily. 12/08/22 Katia Ronnyal, AUTOMATION TENDER - FACER OPERATOR PARoxetine (Paxil) 20 MG tablet Take 1 tablet (20 mg) by mouth every morning. 12/08/22 Katia Rosaline AUTOMATION TENDER - FACER OPERATOR pramipexole (Mirapex) 0.125 MG tablet Take 2 tablets (0.25 mg) by mouth Nightly. 01/13/23 03/14/23 Katia Rosaline, AUTOMATION TENDER - FACER OPERATOR rosuvastatin (Crestor) 10 MG tablet Take 1 tablet (10 mg) by mouth daily. 12/08/22 Katia Rosaline, AUTOMATION TENDER - FACER OPERATOR senna-docusate sodium (Senokot-S) 8.6-50 MG tablet Take 1 tablet by mouth daily. 12/13/22 02/11/23 Katia Rosaline, AUTOMATION TENDER - FACER OPERATOR zolpidem (Ambien) 10 MG tablet Take 1 [...] . PHARMACY VERIFIED WITH PATIENT-[facility]. documented in this encounterSPike Community HospitalJabyvp22-55-6013 Telephone encounter Note* Telephone Encounter - Betty Gonzalez MA - 01/25/2023 3:01 PM EDT Patient notified. [facility] CampusYrrbua32-05-1332 Miscellaneous Notes* Telephone Encounter - Betty Gonzalez [...] EDT S: The patient is calling the [facility] About muscle spasms B: She has [...] days Protocols used: Muscle Aches and Body Eaod-PBKCS-TI documented in this encounterSPike Community HospitalYbtqze66-10-8955 Telephone encounter Note* Telephone Encounter - Shiv Lopez MD - 01/25/2023 2:39 PM EDT If the muscle spasms got worse with the muscle relaxer stop the muscle relaxer, I am not sure what else we can do especially if they have been going on for years. We could try quinine. [facility] CampusDwuymu05-68-5217 Telephone encounter Note* Telephone Encounter - Colette Poole RN - 01/25/2023 1:23 PM EDT S: The patient is calling the [facility] About muscle spasms B: She has [...] days Protocols used: Muscle Aches and Body Oqzy-UAPWO-WN [facility] CampusDppggv29-88-6944 Telephone encounter Note* Telephone Encounter - ELSA Arriaza CNP - 01/13/2023 11:12 AM EDT Reviewed chart. Refill appropriate. RX sent. [facility] CampusNeskmb80-41-4656 Miscellaneous Notes* Telephone Encounter - ELSA Arriaza [...] 12/08/22, vit D 07/18/2022 documented in this encounterSPike Community HospitalHhqzwb22-85-0911 Telephone encounter Note* Telephone Encounter - Mya Foster MA - 01/13/2023 8:52 AM EDT Prescription Request: Last medication check: 10/25/2022 Last physical exam: 04/26/2022 Last completed appointment: 12/13/22 Next scheduled appointment: 01/25/2023 Last date of refill on this medication: Mirapex 12/13/22, baclofen and synthroid 12/08/22, vit D 07/18/2022 [facility] CampusBybdpo29-86-9261 Telephone encounter Note* Telephone Encounter - ELSA Arriaza CNP - 12/08/2022 5:20 PM EDT Reviewed chart. Refill appropriate. RX sent. [facility] CampusVpmulk93-66-4590 Miscellaneous Notes* Telephone Encounter - ELSA Arriaza [...] 90 day 1 refill documented in this encounterSPike Community HospitalXvpiqj40-83-5235 Telephone encounter Note* Telephone Encounter - Syl Kumar MA - 12/08/2022 1:53 PM EDT Prescription Request: Last medication check: 10/25/22 Last physical exam: 04/26/22 Next scheduled appointment: 01/25/23 CSA on file (date): 02/02/22 Last urine drug screen: none Last date of refill on this medication Baclofen 10/04/22 30 tablets no refill Levothyroxine 10/04/22 30 day 1 refill Crestor 06/14/22 90 day 1 refill [facility] CampusDozrmv25-12-3167 Plan of care note* Care Plan - [...] integrity is maintained or improved Outcome: Completed [facility] CampusVqpxov12-08-7038 Miscellaneous Notes* Care Plan - Lambert Kaur [...] Please call the Main Endoscopy Dept at [phone] for questions. * Op Note - Avery Marshall DO - 12/07/2022 7:48 AM EDT [facility]ha Sand[facility] Procedure Date: 12/07/2022 7:48 AM Gender: Female Date of : 1945 Age: 77 Admit Type: Inpatient Note Status: Finalized Endoscopist: Avery Marshall DO, [id number] Procedure: Colonoscopy Indications: Hematochezia Findings: The perianal [...] immediate complications. Procedure Code(s): --- Professional --- 65415, Colonoscopy, flexible; with removal of tumor(s), polyp(s), or other lesion(s) by snare technique --- Technical --- 44469, Colonoscopy, flexible; with removal of tumor(s), polyp(s), [...] or abscess without bleeding CPT copyright 2021 [employer]. All rights reserved. The codes documented in this report are preliminary and upon hog killer review may be revised to meet current [...] Limits Permission given to speak with patient sales representative church furniture/caregiver as indicated: Yes Confirmation of Payer with patient/family: Yes Payer Name: [employer] [place]: No Confirmation of Primary Care Physician: Confirmed [...] Prescription Coverage: Yes Pharmacy Used: [facility] Medication Management: Independent Transportation/Shopping: Independent Transportation Mode: [...] Jackson RN documented in this [facility]06-21-2023 Hospital Discharge instructions* Discharge Instr - Activity* Gabrielle Finch MD - 12/07/2022 1:48 PM EDT As tolerated * Discharge Instr - Diet* Gabrielle Finch MD - 12/07/2022 1:49 PM EDT Carb control diet documented in this [facility]06-21-2023 Hospital course Narrative* Gabrielle Finch MD - 12/07/2022 1:30 PM EDT Seen and examined. Full note to follow documented in this [facility]06-21-2023 Note* Care Coordination - Laura Jackson [...] Stay (Days): 2 GMLOS: No GMLOS Documented [facility] CampusWpmrvq75-93-7315 Note* Care Coordination - Laura Jackson RN [...] Stay (Days): 2 GMLOS: No GMLOS Documented [facility] CampusXkzwid55-62-4077 Note* Perioperative Nursing Note - Ashley Dickens RN - 12/07/2022 9:57 AM EDT POST ENDOSCOPY PROCEDURE TRANSFER REPORT Physician: Dr. Marshall Procedure completed: colonoscopy Specimens obtained: Yes Medications administered: See MAR Findings: see MD report Complications: none Please call the Main Endoscopy Dept at [phone] for questions. [facility] CampusZtjzcr73-97-3091 Note* Perioperative Nursing Note - Ashley Dickens RN - 12/07/2022 9:57 AM EDT POST ENDOSCOPY PROCEDURE TRANSFER REPORT Physician: Dr. Marshall Procedure completed: colonoscopy Specimens obtained: Yes Medications administered: See MAR Findings: see MD report Complications: none Please call the Main Endoscopy Dept at [phone] for questions. [facility] CampusRcnuhs46-81-1151 History of Present illness Narrative* Edelmira Hanna - 12/07/2022 7:58 AM EDT Patient has been NPO/ CLRS x3 days without adequate nutrition. Patient referred to RD. * Lani Bolton RCP - 12/06/2022 5:38 PM EDT [facility] Respiratory Care Department Progress Note As part [...] note were not included. Hospitalist Progress Note 12/06/[id number]: Please secure chat me for patient care issues. [phone]: Please secure chat [facility] [place] Hospitalist for any issues. Subjective: Admit Date: 12/05/2022 PCP: Shiv Lopez MD Room#: B1-148/B1-148 A Interval History: She is weak. Still with bleeding. Not dizzy. She denies chest pain, sob, abdominal pain, nausea, vomiting, diarrhea, constipation, fevers, or chills. Awaiting colonoscopy. D/w pt Adult diet Clear Liquid NPO diet NPO except: Sips of Water with Meds @SEJQ2PYTXQX@ 24HR INTAKE/OUTPUT: Intake/Output Summary (Last 24 hours) [...] Primary Emergency Contact: Angel Roger Address: [address] [place] Relation: Child GABRIELLE FINCH MD Division of Hospitalist Medicine [facility] PAGER: [employer] chat documented in this [facility]06-21-2023 Note* Op Note - Avery Marshall DO - 12/07/2022 7:48 AM EDT [facility] Name: Radha Sandoval Procedure Date: 12/07/2022 7:48 AM Gender: Female Date of : 1945 Age: 77 Admit Type: Inpatient Note Status: Finalized Endoscopist: Avery Marshall DO, [id number] Procedure: Colonoscopy Indications: Hematochezia Findings: The perianal [...] immediate complications. Procedure Code(s): --- Professional --- 02496, Colonoscopy, flexible; with removal of tumor(s), polyp(s), or other lesion(s) by snare technique --- Technical --- 00486, Colonoscopy, flexible; with removal of tumor(s), polyp(s), [...] or abscess without bleeding CPT copyright 2021 [employer]. All rights reserved. The codes documented in this report are preliminary and upon hog killer review may be revised to meet current compliance requirements. Attending Participation: I personally performed the entire procedure. Avery Marshall DO 12/07/2022 9:46:22 AM This report has been signed electronically. Number of Addenda: 0 Note Initiated On: 12/07/2022 7:48 AM [employer] Phone: 1(762) 897-477806-21-2023 Note* Op Note - Avery Marshall DO - 12/07/2022 7:48 AM EDT [facility] Name: Radha Sandoval Procedure Date: 12/07/2022 7:48 AM Gender: Female Date of : 1945 Age: 77 Admit Type: Inpatient Note Status: Finalized Endoscopist: Avery Marshall DO, [id number] Procedure: Colonoscopy Indications: Hematochezia Findings: The perianal [...] immediate complications. Procedure Code(s): --- Professional --- 43563, Colonoscopy, flexible; with removal of tumor(s), polyp(s), or other lesion(s) by snare technique --- Technical --- 00928, Colonoscopy, flexible; with removal of tumor(s), polyp(s), [...] or abscess without bleeding CPT copyright 2021 [employer]. All rights reserved. The codes documented in this report are preliminary and upon hog killer review may be revised to meet current compliance requirements. Attending Participation: I personally performed the entire procedure. Avery Marshall DO 12/07/2022 9:46:22 AM This report has been signed electronically. Number of Addenda: 0 Note Initiated On: 12/07/2022 7:48 AM [employer] Phone: [phone]) 877-660506-20-2023 Note* Care Coordination - Laura Jackson RN - 12/06/2022 10:36 AM EDT Care Managment Initial Assessment Date: 12/06/2022 Patient Name: Radha Sandoval : 1945 Patient Information Source of Information: Patient Cognition/Language: WFL - Within Functional Limits Permission given to speak with patient sales representative church furniture/caregiver as indicated: Yes Confirmation of Payer with patient/family: Yes Payer Name: [employer] [place]: No Confirmation of Primary Care Physician: Confirmed [...] Prescription Coverage: Yes Pharmacy Used: [facility] Medication Management: Independent Transportation/Shopping: Independent Transportation Mode: [...] to assist and follow as needed. Laura Jackosn RN [facility] Dbsqun73-13-9782 Note* Care Coordination - Laura Jackson RN - 12/06/2022 10:36 AM EDT Care Managment Initial Assessment Date: 12/06/2022 Patient Name: Radha Sandoval : 1945 Patient Information Source of Information: Patient Cognition/Language: WFL - Within Functional Limits Permission given to speak with patient sales representative church furniture/caregiver as indicated: Yes Confirmation of Payer with patient/family: Yes Payer Name: [employer] [place]: No Confirmation of Primary Care Physician: Confirmed [...] Prescription Coverage: Yes Pharmacy Used: [facility] Medication Management: Independent Transportation/Shopping: Independent Transportation Mode: [...] and follow as needed. Laura Jackson RN [facility]06-20-2023 Consult note* Malcolm Rodriguez MD - 12/06/2022 [...] Arriaza CNP ergocalciferol (Vitamin D-2) 1.25 MG (40618 UT) capsule Take 1 capsule (1.25 mg) [...] 12/05/2022 Patient Name: RADHA SANDOVAL : 1945 [facility]#: [id number] ExamDate/Time: 12/05/2022 15:39 Procedure: CT ABDOMEN PELVIS [...] the patient/guardian/responsible accompanying adult who is agreeable. [employer] Phone: [phone] 524-837606-20-2023 Consult note* Malcolm Rodriguez MD - 12/06/2022 [...] Arriaza CNP ergocalciferol (Vitamin D-2) 1.25 MG (99874 UT) capsule Take 1 capsule (1.25 mg) [...] mg) by mouth daily. 06/14/22 Katia Granados, AUTOMATION TENDER - FACER OPERATOR zolpidem (Ambien) 10 MG tablet Take 1 [...] adult who is agreeable. documented in this [facility]06-19-2023 Emergency department Note* Abby Kahn RN - 12/05/2022 8:30 PM EDT Provided pt with water and nomi Kahn RN 12/05/222200 [facility]Rhtzey05-75-1792 Emergency department Note* Abby Kahn RN - [...] IV that was placed in R AC. [facility] C[employer] called to place a new IV Abby Kahn RN 12/05/22 1403 * ANASTASIA Molina - 12/05/2022 10:43 AM EDT [facility] ED eMERGENCY dEPARTMENT eNCOUnter Pt [...] mouth daily. ERGOCALCIFEROL (VITAMIN D-2) 1.25 MG (08742 UT) CAPSULE Take 1 capsule (1.25 mg) [...] None Comment: W/ U[facility]IL [facility] ADMITTANCE TO [facility] Social Determinants of Health Financial Resource Strain: [...] Abnormal Glucose 215 (*) Narrative: [facility], [address] [place] [address] CLIA ID: [id number] HEPATIC FUNCTION PANEL - Normal BILIRUBIN, TOTAL [...] MEDICATIONS: New Prescriptions No medications on file [facility]([id number]:LAST:1)@ (Please note: Portions of this note were completed with a voice recognition program. Efforts were made to edit thedictations but occasionally words and phrases are mis-transcribed.) Form v2016.J.[id number] ANASTASIA MOLINA (electronically signed) Emergency Medicine Provider ANASTASIA Molina 12/05/22 1748 * Anusha Velarde MD - 12/05/2022 10:43 AM EDT Emergency Department Encounter [facility] ED Patient: Radha Sandoval : [...] hx of GI bleed. documented in this encounterSPike Community HospitalGstnfx55-95-6779 Nurse Note* Sis Archibald RN - 12/05/2022 8:[address] Durbin requesting 18g U/S IV placed d/t GIB. No suitable options for an 18g PIV to be placed at this time. Pt also refusing for Left arm to be used. Dr. Hammer notified. [facility]Vnmayt56-00-8167 Nurse Note* Sis Archibald RN - 12/05/2022 8:[address] Durbin requesting 18g U/S IV placed d/t GIB. No suitable options for an 18g PIV to be placed at this time. Pt also refusing for Left arm to be used. Dr. Hammer notified. documented in this [facility]06-19-2023 Emergency department Note* Abby Kahn RN - 12/05/2022 6:[address] Velarde notified pt has filled x 3 bedpan with bloody stools and clots Abby Kahn RN 12/05/22 1812 [facility]Hxjrft05-36-1530 Emergency department Note* Abby Kahn RN - 12/05/2022 5:10 PM EDT Ashley (ANASTASIA) made aware that pt has had 2 large bloody BM's at this point Abby Kahn RN 12/05/22 1733 [facility] CampusVkxetl91-03-9563 History and physical note* Bertram Durbin MD [...] None Comment: W/ UNTIL [facility] TO [facility] Other Topics Concern Not on file Social [...] tablet 0 ergocalciferol (Vitamin D-2) 1.25 MG (51243 UT) capsule Take 1 capsule (1.25 mg) [...] Primary Emergency Contact: Angel Roger Address: [address] [place] Relation: Child Code status: No [...] H&P to the patient's PCP. Thank you. [employer] Phone: [phone] 106-275006-19-2023 History and physical note* Bretram Durbin MD - 12/05/2022 4:59 PM EDT [...] None Comment: W/ UNTIL [facility] TO [facility] Other Topics Concern Not on file Social [...] tablet 0 ergocalciferol (Vitamin D-2) 1.25 MG (17881 UT) capsule Take 1 capsule (1.25 mg) [...] Primary Emergency Contact: Angel Roger Address: [address] [place] Relation: Child Code status: No [...] Thank you. documented in this [facility]06-19-2023 Emergency department Note* Abby Kahn RN - 12/05/2022 4:58 PM EDT Pt had large bloody BM Abby Kahn RN 12/05/22 1658 [facility] CampusCpjrzc05-17-0451 Emergency department Note* Abby Kahn RN - 12/05/2022 2:[address] stated they were unable to use US IV that was placed in R AC. [facility] called to place a new IV Abby Kahn RN 12/05/22 1403 [facility] CampusIguigk04-26-6201 Emergency department Triage note* Maday Borja RN - 12/05/2022 10:43 AM EDT Pt reports bright red blood with blood clots in her brief this AM, denies use of blood thinners or hx of GI bleed. [facility] CampusHwtxcl39-64-7885 Physician Emergency department Note* ANASTASIA Molina - 12/05/2022 10:43 AM EDT [facility] ED eMERGENCY dEPARTMENT eNCOUnter Pt [...] mouth daily. ERGOCALCIFEROL (VITAMIN D-2) 1.25 MG (79873 UT) CAPSULE Take 1 capsule (1.25 mg) [...] None Comment: W/ U[facility]IL [facility] TO [facility] Social Determinants of Health Financial Resource Strain: [...] 215 (*) Narrative: Performed by: Johana Montero [facility], [address] [place] [address] CLIA ID: [id number] HEPATIC FUNCTION PANEL - Normal BILIRUBIN, TOTAL [...] MEDICATIONS: New Prescriptions No medications on file [facility]([id number]:LAST:1)@ (Please note: Portions of this note were completed with a voice recognition program. Efforts were made to edit thedictations but occasionally words and phrases are mis-transcribed.) Form [id number].[id number] ANASTASIA MOLINA (electronically signed) Emergency Medicine Provider ANASTASIA Molina 12/05/22 1748 [facility] CampusHjfwyp28-99-7232 Physician Emergency department Note* Anusha Velarde MD - 12/05/2022 10:43 AM EDT Emergency Department Encounter [facility] ED Patient: Radha Sandoval : [...] MD 12/05/22 1638 Anusha Velarde MD 12/05/221851 [employer] Phone: [phone] Telephone encounter Note* Telephone Encounter - ELSA Arriaza CNP - 12/05/2022 9:44 AM EDT Noted. Agree with disposition. HooptapNumfpr78-12-7413 Miscellaneous Notes* Telephone Encounter - ELSA Arriaza CNP - 12/05/2022 9:44 AM EDT Noted. Agree with disposition. * Telephone Encounter - Sruthi Burns RN - 12/05/2022 9:22 AM EDT S: Patient spoke with [facility] nurse regarding rectal bleeding. B: Onset of symptoms/concern: started today. A: Pt states she has severe rectal bleeding, started today, bleeding from rectum continuously, states passing clots, states large amount of bleeding. States she has mild dizziness/shakiness at this time. R: Advised to go to the ED now, advised to have someone drive her, states she will go to [facility]. No further needs at this time. Patient instructed to call back with new or worsening symptoms. Advised to call 911 if she worsens or feels like she might pass out. Patient verbalizes understanding. Reason for Disposition SEVERE rectal bleeding (large blood clots; constant or on and off bleeding) Protocols used: Rectal Dlzabxcz-GRWST-WG documented in this encounterSPike Community [id number] Telephone encounter Note* Telephone Encounter - Sruthi Burns RN - 12/05/2022 9:22 AM EDT S: Patient spoke with [facility] nurse regarding rectal bleeding. B: Onset of symptoms/concern: started today. A: Pt states she has severe rectal bleeding, started today, bleeding from rectum continuously, states passing clots, states large amount of bleeding. States she has mild dizziness/shakiness at this time. R: Advised to go to the ED now, advised to have someone drive her, states she will go to [place] [facility]. No further needs at this time. Patient instructed to call back with new or worsening symptoms. Advised to call 911 if she worsens or feels like she might pass out. Patient verbalizes understanding. Reason for Disposition SEVERE rectal bleeding (large blood clots; constant or on and off bleeding) Protocols used: Rectal Dczhoocw-YIAYS-TF [id number] Telephone encounter Note* Telephone Encounter - Mya Foster MA - 10/05/2022 3:55 PM EDT ----- Message from Katia Granados APRN - FACER OPERATOR sent at 10/05/2022 3:52 PM EDT ----- Hemoglobin A1c 9- recommend increasing novolog dose by 2 units- (from 14 to 16), send glucose readings to office in 1 week. Notified, can you please update sig? Thanks! [facility] CampusIrauvr28-44-6276 Miscellaneous Notes* Telephone Encounter - Mya Foster MA - 10/05/2022 3:55 PM EDT ----- Message from Katia Granados APRN - FACER OPERATOR sent at 10/05/2022 3:52 PM EDT ----- Hemoglobin A1c 9- recommend increasing novolog dose by 2 units- (from 14 to 16), send glucose readings to office in 1 week. Notified, can you please update sig? Thanks! documented in this encounterSPike Community [id number] Telephone encounter Note* Telephone Encounter - Stefani [...] prior to picking up the medication: Yes [facility] CampusIlrcsj18-17-2188 Miscellaneous Notes* Telephone Encounter - Stefani Abraham [...] up the medication: Yes documented in this encounterSPike Community HospitalTjbhtn46-72-4795 Telephone encounter Note* Telephone Encounter - Shiv Lopez MD - 07/26/2022 8:29 AM EST Rx sent [facility] [id number] Miscellaneous Notes* Telephone Encounter - Shiv Lopez [...] tab): 05/03/2022 documented in this [facility]02-07-2023 Note* Addendum Note - Mya Foster MA - 07/26/2022 7:57 AM ESTAddended by: MYA FOSTER on: 07/26/2022 07:57 AM Modules accepted: Orders [facility] CampusSzstoe45-74-1515 Note* Addendum Note - Mya Foster MA - 07/26/2022 7:57 AM ESTAddended by: MYA FOSTER on: 07/26/2022 07:57 AM Modules accepted: Orders [place] [id number] Telephone encounter Note* Telephone Encounter - September [...] of last refill (see medication tab): 05/03/2022 [facility] CampusJhfogp67-13-7518 Telephone encounter Note* Telephone Encounter - ELSA Arriaza CNP - 07/18/2022 9:56 AM EST Reviewed chart. Refill appropriate. RX sent. [facility] CampusFsrlqd28-25-8080 Miscellaneous Notes* Telephone Encounter - ELSA Arriaza CNP - 07/18/2022 9:56 AM EST Reviewed chart. Refill appropriate. RX sent. * Telephone Encounter - Magda Lomas - 07/18/2022 9:39 AM EST Prescription Request: Last medication check: 06/30/22 Last physical exam: 04/26/22 Next scheduled appointment: 09/30/22 Last date of refill on this medication 06/14/22 documented in this [facility]01-30-2023 Telephone encounter Note* Telephone Encounter - Magda Lomas - 07/18/2022 9:39 AM EST Prescription Request: Last medication check: 06/30/22 Last physical exam: 04/26/22 Next scheduled appointment: 09/30/22 Last date of refill on this medication 06/14/22 [address]hk[address]y20-26-4306 Telephone encounter Note* Telephone Encounter - Ashley Haider MA - 07/13/2022 1:06 PM EST Attempted to call patient to help her schedule an appt - the patient has a recording that says she is not accepting calls [facility] CampusRwlemc48-37-1420 Miscellaneous Notes* Telephone Encounter - Ashley Haider [...] her 07/08 appt. Please advise. Office Name: [facility] Physician Orthopedics Medication Refills need, if any: N/A Medication Name: N/A documented in this encounterSPike Community HospitalDtwffd86-29-5667 Telephone encounter Note* Telephone Encounter - Devendra Loera MD - 07/13/2022 11:10 AM EST Okay to reschedule [facility] ITS Compliance Phone: [phone] 747-522401-23-2023 Telephone encounter Note* Telephone Encounter - ELSA Arriaza CNP - 07/11/2022 2:11 PM EST Reviewed chart. Refill appropriate. RX sent. [facility] CampusVryhrj09-82-1531 Miscellaneous Notes* Telephone Encounter - ELSA Arriaza CNP - 07/11/2022 2:11 PM EST Reviewed chart. Refill appropriate. RX sent. * Telephone Encounter - Mya Foster MA - 07/11/2022 2:02 PM EST Prescription Request: Last medication check: 08/05/21 Last physical exam: 04/26/22 Next scheduled appointment: 09/29/2022 Last date of refill on this medication 02/28/2022 documented in this encounterSPike Community HospitalFznyto25-27-7290 Telephone encounter Note* Telephone Encounter - Mya Foster MA - 07/11/2022 2:02 PM EST Prescription Request: Last medication check: 08/05/21 Last physical exam: 04/26/22 Next scheduled appointment: 09/29/2022 Last date of refill on this medication 02/28/2022 [address]gaphl31-30-6453 Telephone encounter Note* Telephone Encounter - Mya Foster MA - 07/11/2022 9:46 AM EST [address]ified. [address]Oegaaj53-04-3426 Miscellaneous Notes* Telephone Encounter - Mya Foster [...] to answer question Protocols used: Falls and Qqwrxxl-JWHHE-LI documented in this encounterSPike Community HospitalMosysi03-08-3691 Telephone encounter Note* Telephone Encounter - Shiv Lopez MD - 07/08/2022 12:30 PM EST Rx sent for tramadol, she can take this with Tylenol, this is a one-time prescription and cannot berefilled because we are not chronic pain management physicians. [facility] CampusYffzpz73-42-4245 Miscellaneous Notes* Telephone Encounter - Shiv Lopez [...] to answer question Protocols used: Falls and Juwewxr-CRTVR-DJ documented in this [facility]01-20-2023 Telephone encounter Note* Telephone Encounter - [...] to answer question Protocols used: Falls and Vsjgoin-IOZFS-HR [facility]01-19-2023 Telephone encounter Note* Telephone Encounter - Katie Bernardo - 07/07/2022 5:48 PM EST Name of Caller: Radha Contact Reason for Appointment: Pt states that she would like to r/s her 07/08 appt. Please advise. Office Name: [facility] Physician Orthopedics Medication Refills need, if any: N/A Medication Name: N/A [facility]01-12-2023 Evaluation + Plan note* Assessment & Plan Note - Shiv Lopez MD - 06/30/2022 12:54 PM ESTAssociated Problem(s): Hyperlipidemia with target LDL less than 70 Controlled, continue rosuvastatin 10 mg daily [facility]01-12-2023 Evaluation + Plan note* Assessment & Plan Note - Shiv Lopez MD - 06/30/2022 12:54 PM ESTAssociated Problem(s): Moderate episode of recurrent major depressive disorder (HCC) Stable, continue Paxil 20 mg daily [place] [address]-12-2023 Evaluation + Plan note* Assessment & Plan Note - Shiv Lopez MD - 06/30/2022 12:54 PM ESTAssociated Problem(s): Chronic right-sided low back pain with right-sided sciatica Referral to orthopedic surgeon [facility] CampusEginrs29-25-3227 Evaluation + Plan note* Assessment & Plan Note - Shiv Lopez MD - 06/30/2022 12:54 PM ESTAssociated Problem(s): Hypothyroidism Controlled, continue levothyroxine 150 mcg daily [facility] Ebskks63-90-6604 Miscellaneous Notes* Assessment & Plan Note - [...] of Ambien documented in this [facility]01-12-2023 Evaluation + Plan note* Assessment & Plan Note - Shiv Lopez MD - 06/30/2022 12:53 PM EST Associated Problem(s): Vitamin D deficiency Stable, continue vitamin D 50,000 units weekly [facility] CampusCuyynj22-90-6987 Evaluation + Plan note* Assessment & Plan Note - Shiv Lopez MD - 06/30/2022 12:53 PM ESTAssociated Problem(s): Uncontrolled type 2 diabetes mellitus with hyperglycemia (HCC) Uncontrolled, continue NovoLog 14 units before each meal. 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 [facility] CampusFtbwsi22-44-7119 Evaluation + Plan note* Assessment & Plan Note - Shiv Lopez MD - 06/30/2022 12:52 PM ESTAssociated Problem(s): DDD (degenerative disc disease), lumbar This is a chronic issue we will send her to spine surgery for further evaluation. [facility] CampusAnsguw40-88-1273 Evaluation + Plan note* Assessment & Plan Note - Shiv Lopez MD - 06/30/2022 12:51 PM ESTAssociated Problem(s): Hypertension Blood pressure was initially elevated, recheck was normal, continue lisinopril 40 mg daily and amlodipine 10 mg daily [facility] CampusMhpztw43-02-4557 Evaluation + Plan note* Assessment & Plan Note - Shiv Lopez MD - 06/30/2022 12:51 PM ESTAssociated Problem(s): Restless legs syndrome (RLS) Stable on current dose of Mirapex 2 mg nightly [facility] CampusZiegze02-92-9557 Evaluation + Plan note* Assessment & Plan Note - Shiv Lopez MD - 06/30/2022 12:51 PM ESTAssociated Problem(s): Insomnia Stable on current dose of Ambien [facility] CampusVxylsf84-96-2280 History of Present illness Narrative* Syl Kumar MA - 06/30/2022 8:15 AM EST Patient verified by last name and date of . Patient wants a biodiesel product development manager in the room during during the visit. no Almond Sorter na * Shiv Lopez MD - 06/30/2022 [...] spine surgery for further evaluation. Orders: - [facility] Orthopedics Spine - [place] 11. Chronic right-sided low back pain with right-sided sciatica Assessment & Plan: Referral to orthopedic surgeon Orders: - [facility] Orthopedics Spine - [place] Follow up in about 3 months [...] MD 06/30/2022 12:55 PM [facility] this [facility]* Diagnosis Localized edema Edema documented [...] of gastrointestinal tract documented in this encounter [facility]Evaluation note* Diagnosis Hyperlipidemia with target LDL less than 70 Other and unspecified hyperlipidemia Acquired hypothyroidism Unspecified hypothyroidism Chronic left shoulder pain Pain in joint, shoulder region documented in this encounter [facility] note* Diagnosis Vitamin D deficiency Acquired hypothyroidism Unspecified hypothyroidism Chronic left shoulder pain Pain in joint, shoulder region Restless legs syndrome (RLS) documented in this encounter [facility] note* Diagnosis Wound of right buttock, subsequent encounter- Primary Chronic left shoulder pain Pain in joint, shoulder region documented in this encounter [facility] note* Diagnosis LING (acute kidney injury) ([facility]) ([facility])- Primary Pyelonephritis Unspecified pyelonephritis LING (acute kidney injury) ([facility]) ([facility]) Polypharmacy Issue of repeat prescriptions Insomnia, unspecified type Pressure ulcer of right buttock, stage 3 ([facility]) Declining functional status Weakness Other malaise and fatigue Insomnia Insomnia, unspecified Anxiety Anxiety state, unspecified Polypharmacy Issue of repeat prescriptions DNR (do not resuscitate) Other specified conditions influencing health status Complicated UTI (urinary tract infection) documented in this encounter [facility] note* Diagnosis Onset Date Resolution Status Acquired lymphedema acute Debility acute Depression acute Diabetes mellitus acute Edema acute Hypothyroidism acute Insomnia acute Pain in left toe(s) acute Pain in right toe(s) acute Restless leg syndrome acute Rheumatoid arthritis acute Tinea unguium acute Type 2 diabetes mellitus with diabetic polyneuropathy acute Urinary tract infection acut e Hypertension chronic [facility] Work Phone: Evaluation note* Diagnosis Onset Date Resolution Status Acquired lymphedema acute Debility acute Depression acute Diabetes mellitus acute Edema acute Hypothyroidism acute Insomnia acute Restless leg syndrome acute Rheumatoid arthritis acute Type 2 diabetes mellitus with diabetic polyneuropathy acute Hypertension chronic Pain in left toe(s) resolved Pain in right toe(s) resolve d Tinea unguium resolved Urinary tract infection reso lved [facility] Work Phone: Evaluation noteNo assessment information available [facility] Work Phone: Evaluation note* Diagnosis Uncontrolled type [...] with right-sided sciatica documented in this encounter [facility]* Diagnosis Trauma- Primary Injury, other and unspecified, unspecified site documented in this encounter [facility] note* Diagnosis Trauma- Primary Injury, other and unspecified, unspecified site documented in this encounter [facility] note* Diagnosis Vitamin D deficiency [facility] Additional Instructions Discharge to [facility] 03/18/2023, intermediate, Part B therapies.[facility] Work Phone: Instructions* Attachments The following attachments cannot be sent through Care Everywhere. * Acute Cystitis Discharge Instructions (Green[place]ic) [facility]ust[facility] for referral (narrative)* Consultation (Urgent) - Pending Review Specialty Diagnoses / Procedures Referred By Varun irizarry Referred To Contact Wound Care Diagnoses Wound of right buttock, subsequent encounter Procedures [place] OFFICE/OUTPATIENT [facility] 60-74 MINUTES Katia Granados APRN - CNP [address] [place] [address] [facility] [address] [place] [address] Referral ID Status Reason Start Date Expiration Date Visits Requested Visits Authorized [id number] Pending Review Specialty Services Required 02/07/2023 02/07/2024 1 1 [facility] (n[facility])* Consultation (Routine) - Pending Review Specialty Diagnoses / Procedures Referred By Contac t Referred To Contact Orthopedic Surgery: Spine Surgery / Orthopedic Surgery Diagnoses DDD (degenerative disc disease), lumbar Chronic right-sided low back pain with right-sided sciatica Procedures [place] OFFICE/OUTPATIENT [facility] MDM 60-74 MINUTES Shiv Lopez MD [address], [place] [address] [facility] [address] [place] [address] Referral ID Status Reason Start Date Expiration Date Visits Requested Visits Authorized [id number] Pending Review Specialty Services Required 06/30/2022 12/27/2022 1 1 [facility] for referral (narrative)No reason for referral information availableWKindred Hospital L[facility] Work Phone: Summary Purpose Family History No Family History Records Found Relationship Condition Age at Onset Recorded Date/T amelia Not Specified Cardiac disease Unknown Malignant neoplasm Unknown Advance Directives No Advanced Directives Records FoundDocuments on File Type Date Recorded 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 anation ACP-Advance Directive ACP-Power of Production Editor Latest Code Status on File Code Status Date Activated Date Inactivated Comments Full Code 01/20/2019 3:56 AM 01/23/2019 7:06 PM Full Code 01/20/2019 3:56 AM 01/20/2019 3:56 AM Documents on File Type Date Recorded 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 anation Advance Directives and Living Will Power of Production Editor Documents on File Type Date Recorded 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 anation ACP-Advance Directive ACP-Power of Production Editor Latest Code Status on File Code Status [...] No March 06, 2023 4:25pm Power of Production Editor No February 4:25pm Advance Directive Response Recorded Date/ Time Living Will No March 06, 2023 3:25pm Power of Production Editor No February 3:25pm Documents on File Type Date Recorded 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 anation DNR (Do Not Resuscitate) 03/06/2023 [...] sent through Care Everywhere. * Lacerations: Stitches (Greenlandic) * Head Injury: Closed: General Info (Greenlandic) * Cervical Strain ([place]ic) documented in this encounter Assessments Diagnosis Injury of head, initial encounter- Primary Laceration of scalp, initial encounter Strain of neck muscle, initial encounter Reason for Referral Status Reason Specialty Diagnoses / Procedures Referre d By Contact Referred To Contact Closed Cardiology Diagnoses Localized edema Procedures ECHO Complete 2D W Doppler W Color Shiv Lopez MD [address] [place] [address], [place] [address] Specialty Diagnoses / Procedures Referred By Varun irizarry Referred To Contact Gabrielle Finch MD [address] [place] [address] Referral ID Status Reason Start Date Expiration Date Visits Re quested Visits Authorized [id number] Closed 1 1 Referral ID Status Reason Start Date Expiration Date Visits Re quested Visits Authorized [id number] Closed 1 1 Referral ID Status Reason Start Date Expiration Date Visits Re quested Visits Authorized [id number] Closed 1 1 Specialty Diagnoses / Procedures Referred By Contac t Referred To Contact Wound Care Diagnoses Pressure ulcer of right buttock, stage 3 (HCC) Procedures [place] OFFICE/OUTPATIENT [facility] MDM 60-74 MINUTES Rosalinda Burrows, AUTOMATION TENDER - FACER OPERATOR [address] [place] [address] Referral ID Status Reason Start Date Expiration Date Visits Requested Visits Authorized [id number] Pending Review Specialty Services Required 03/01/2023 02/29/2024 1 1 Specialty Diagnoses / Procedures Referred By Contac t Referred To Contact Geriatric Medicine Diagnoses Polypharmacy Insomnia, unspecified type Procedures [place] OFFICE/OUTPATIENT [facility] MDM 60-74 MINUTES Adam Holt MD [address] [address] [facility] [address] [facility] [address] [place] [address] Referral ID Status Reason Start Date Expiration Date Visits Requested Visits Authorized [id number] Pending Review Specialty Services Required 03/01/2023 02/29/2024 1 1 Chief Complaint and Reason for Visit Chief Complaint UTI/PRESSURE WOUND Reason for Visit Acquired lymphedema Debility Depression Diabetes mellitus Edema Hypothyroidism Insomnia Pain in left toe(s) Pain in right toe(s) Restless leg syndrome Rheumatoid arthritis Tinea unguium Type 2 diabetes mellitus with diabetic polyneuropathy Urinary tract infection Hypertension Chief Complaint UTI/PRESSURE WOUND [facility] Reason for Visit Acquired lymphedema Debility Depression Diabetes mellitus Edema Hypothyroidism Insomnia Restless leg syndrome Rheumatoid arthritis Type 2 diabetes mellitus with diabetic polyneuropathy Hypertension Pain in left toe(s) Pain in right toe(s) Tinea unguium Urinary tract infection Chief Complaint UTI/PRESSURE WOUND [facility] Reason for Visit Acquired lymphedema Debility Depression Diabetes mellitus Edema Hypothyroidism Insomnia Restless leg syndrome Rheumatoid arthritis Type 2 diabetes mellitus with diabetic polyneuropathy Hypertension Pain in left toe(s) Pain in right toe(s) Tinea unguium Urinary tract infection Chief Complaint UTI/PRESSURE WOUND [facility] Reason for Visit Acquired lymphedema Debility Depression Diabetes mellitus Edema Hypothyroidism Insomnia Restless leg syndrome Rheumatoid arthritis Type 2 diabetes mellitus with diabetic polyneuropathy Hypertension Pain in left toe(s) Pain in right toe(s) Tinea unguium Urinary tract infection Chief Complaint UTI/PRESSURE WOUND [facility] LABWORK Reason for Visit Acquired lymphedema Debility Depression Diabetes mellitus Edema Hypothyroidism Insomnia Restless leg syndrome Rheumatoid arthritis Type 2 diabetes mellitus with diabetic polyneuropathy Hypertension Pain in left toe(s) Pain in right toe(s) Tinea unguium Urinary tract infection Chief Complaint UTI/PRESSURE WOUND [facility] LABWORK Reason for Visit Acquired lymphedema Debility Depression Diabetes mellitus Edema Hypothyroidism Insomnia Restless leg syndrome Rheumatoid arthritis Type 2 diabetes mellitus with diabetic polyneuropathy Hypertension Pain in left toe(s) Pain in right toe(s) Tinea unguium Urinary tract infection Chief Complaint [facility] LABWORK [facility] LABWORK [facility] LABWORK Chief Complaint [facility] WOR K [facility] LABWORK [facility] WORK [facility] WORK LABWORK [facility] WORK LABWORK LABWORK Chief Complaint [facility] WOR K LABWORK [facility] WORK [facility] LABWORK [facility] LABWORK LABWORK LABWORK Chief Complaint [facility] WOR K LABWORK [facility] WORK [facility] LABWORK [facility] WORK LABWORK LABWORK LABWORK LABWORK Chief Complaint Admit Date [facility] May 29 5:00am [facility] June 13 6:35am [facility] June 27, 2024 5:00am [facility] July 11, 2024 5:00am LABWORK July 25, 2024 5 :00am B/L SHOULDER PAIN/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 o July 31, 2024 4:58pm LABWORK August 06, 2024 4:00pm LABWORK August 08, 2024 8:05am [facility] August 22, 2024 7: 10am Chief Complaint Admit Date [facility] WORK May 29 5:00am [facility] WORK June 13 6:35am [facility] WORK June 27, 2024 5:00am [facility] WORK July 11, 2024 5:00am LABWORK July 25, 2024 5 :00am B/L SHOULDER PAIN/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 o July 31, 2024 4:58pm LABWORK August 06, 2024 4:00pm LABWORK August 08, 2024 8:05am [facility] WORK August 22, 2024 7: 10am [facility] WORK September 05, 2024 8 :00am Chief Complaint Admit Date [facility] WORK June 13 6:35am [facility] WORK June 27, 2024 5:00am [facility] WORK July 11, 2024 5:00am LABWORK July 25, 2024 5 :00am B/L SHOULDER PAIN/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 o July 31, 2024 4:58pm LABWORK August 06, 2024 4:00pm LABWORK August 08, 2024 8:05am [facility] August 22, 2024 7: 10am [facility] WORK September 05, 2024 8 :00am [facility] WORK October 03, 2024 4 :00am Chief Complaint Admit Date [facility] WORK June 27, 2024 5:00am [facility] WORK July 11, 2024 5:00am LABWORK July 25, 2024 5 :00am B/L SHOULDER PAIN/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 o July 31, 2024 4:58pm LABWORK August 06, 2024 4:00pm LABWORK August 08, 2024 8:05am [facility] WORK August 22, 2024 7: 10am [facility] WORK September 05, 2024 8 :00am LABWORK September 19, 2024 5:00 am [facility] WORK September 23, 2024 8: 20am [facility] WORK October 03, 2024 4 :00am Chief Complaint Admit Date LABWORK August 06, 2024 4:00pm LABWORK August 08, 2024 8:05am [facility] August 22, 2024 7: 10am [facility] September 05, 2024 8 :00am LABWORK September 19, 2024 5:00 am [facility] September 23, 2024 8: 20am [facility] October 03, 2024 4 :00am LABWORK October 17, 2024 5:00am LABOWRK November 08, 2024 5:00a m Chief Complaint Admit Date LABWORK August 06, 2024 4:00pm LABWORK August 08, 2024 8:05am [facility] August 22, 2024 7: 10am [facility] September 05, 2024 8 :00am LABWORK September 19, 2024 5:00 am [facility] WORK September 23, 2024 8: 20am [facility] October 03, 2024 4 :00am LABWORK October 17, 2024 5:00am LABOWRK November 08, 2024 5:00a m [facility] WORK November 14, 2024 6:5 0am [...] DATE CREATED AUTHOR AUTHOR'S ORGANIZ ATION 03/07/2025 [facility] Reason for Visit (unrecogniz ed section and content) Reason Comments Fall Surgical team Reason Onset Date Comments Results 10/05/2022 Reason Comments Black or Bloody Stool Specialty Diagnoses / Procedures Referred By Contac t Referred To Contact Diagnoses Acute lower GI bleeding Procedures K92.2 Bertram Durbin MD [address] [facility] [address] [place] [address] [facility] 1e Med Surg [address] [place] [address] Referral ID Status Reason Start Date Expiration Date Visits Re quested Visits Authorized [id number] 1 1 Reason Onset Date Comments Med [...] (CMS/HCC) (HCC) Procedures .. Gabrielle Finch MD [address] [place] [address] [facility] Emergency Dept [address] [place] [address] Referral ID Status Reason Start Date Expiration Date Visits Re quested Visits Authorized [id number] 1 1 Reason Onset Date Comments ER [...] 17, 2024 End: October 17, 2024 Dr. Meilssa THOMPSON MD Attending Provider Active Start: October [...] Attending Provider Active Start: September 19, 2024 Correction Officer Relationship Specialty Start Date End Date Shiv Lopez MD [address] [place] [id number] PCP - General 02/01/19 Correction Officer Relationship Specialty Start Date End Date Shiv Lopez MD [address] [place], [place] [address] [address] PCP - General 02/01/19 Correction Officer Relationship Specialty Start Date End Date Shiv Lopez MD [address] [place], [place] [address] [address] PCP - General 02/01/19 Correction Officer Relationship Specialty Start Date End Date Shiv Lopez MD [address] [facility] [place] [address] PCP - General 02/01/19 Correction Officer Relationship Specialty Start Date End Date Shiv Lopez MD [address] [facility] [place] [address] PCP - General 02/01/19 Correction Officer Relationship Specialty Start Date End Date Shiv Lopez MD [address] [facility] [place] [address] PCP - General 02/01/19 Correction Officer Relationship Specialty Start Date End Date Shiv Lopez MD [address] [facility] [place] [address] PCP - General 02/01/19 Correction Officer Relationship Specialty Start Date End Date Shiv Lopez MD [address] [facility] [place] [address] PCP - General 02/01/19 Correction Officer Relationship Specialty Start Date End Date Shiv Lopez MD [address] [facility] [place] [address] PCP - General 02/01/19 Correction Officer Relationship Specialty Start Date End Date Shiv Lopez MD [address] [facility] [place] [address] PCP - General 02/01/19 Correction Officer Relationship Specialty Start Date [place] [address] PCP - General 02/01/19 Correction Officer Relationship Specialty Start Date End Date Shiv Lopez MD [address] [place] [id number] PCP - General 02/01/19 Correction Officer Relationship Specialty Start Date End Date Shiv Lopez MD [address] [place] [id number] PCP - General 02/01/19 Correction Officer Relationship Specialty Start Date End Date Shiv Lopez MD [address] [place] [id number] PCP - General 02/01/19 Team Status: Active [...] THOMPSON MD Attending Provider, Referring Provider Active Correction Officer Relationship Specialty Start Date End Date Shiv Lopez MD [address] [place] [address] PCP - General 02/01/19 Correction Officer Relationship Specialty Start Date End Date Shiv Lopez MD [address] [place] [id number] PCP - General 02/01/19 Correction Officer Relationship Specialty Start Date End Date Shiv Lopez MD [address] [place] [id number] PCP - General 02/01/19 Correction Officer Relationship Specialty Start Date End Date Shiv Lopez MD [address] [place] [id number] PCP - General 02/01/19 Team Status: Inactive [...] parameters not met - Comment: Held per [facility]) 0859 (Given - Provider: Oneyda Young RN) [...] parameters not met - Comment: Held per [facility]) 0859 (Given - Provider: Oneyda Young RN) [...] BE BASED ON THE PRIMARY CLINICAL RECORDS. [employer] provides no warranty or guarantee of the accuracy or completeness of information in this document.
[2025-03-10 09:45] LABS: Anion Gap 10 (5-15); BUN 25 mg/dL (4-19); BUN/Creat Ratio 22.7 RATIO (10-20); Calcium,Total 8.6 mg/dL (7.6-11.0); Carbon Dioxide 28.0 mmol/L (21.0-32.0); Chloride 100 mmol/L (98-108); Glucose 235 mg/dL (70-99); Potassium 3.7 mmol/L (3.3-5.1)
[2025-03-10 10:36] LABS: Pro- Brain NATRIURETIC PEPTIDE 179 pg/mL (<=1800)
== END ==
LOC: OLS.SWAL 04:00
PROVIDERS: PCP Internal Medicine; Referring Provider Internal Medicine; Visit Provider Internal Medicine
DX: R06.00 Dyspnea, unspecified (principal); R63.4 Abnormal weight loss
CPT/HCPCS: 36415; 80048; 83880

== ENCOUNTER → 2025-03-14 | Outpatient (REF) | payer MEDICARE, MEDICAID, SELFPAY | LOC: OLS.SWAL 05:00 | PROVIDERS: PCP Internal Medicine; Visit Provider Internal Medicine | DX: E11.9 Type 2 diabetes mellitus without complications (principal) | CPT/HCPCS: 36415; 83036 ==

== ENCOUNTER → 2025-03-20 | Outpatient (REF) | payer MEDICARE, MEDICAID, SELFPAY ==
[2025-03-20 10:02] LABS: Anion Gap 11 (5-15); BUN 20 mg/dL (4-19); BUN/Creat Ratio 19.3 RATIO (10-20); Calcium,Total 8.9 mg/dL (7.6-11.0); Carbon Dioxide 28.7 mmol/L (21.0-32.0); Chloride 100 mmol/L (98-108); Glucose 183 mg/dL (70-99); Magnesium 2.1 mg/dL (1.5-2.2); Potassium 3.8 mmol/L (3.3-5.1)
== END ==
LOC: OLS.SWAL 05:00
PROVIDERS: PCP Internal Medicine; Visit Provider Internal Medicine
DX: R60.9 Edema, unspecified (principal)
CPT/HCPCS: 36415; 80048; 83735

== ENCOUNTER → 2025-03-26 | Outpatient (REF) | payer MEDICARE, MEDICAID, SELFPAY ==
[2025-03-27 08:48] LABS: Mucous, Urine 0 SEEN /hpf (<or=2+); Red Blood Cells-Urine 0 SEEN /hpf (0-5)
[2025-03-27 09:44] LABS: Color, Urine Yellow (Yellow); Glucose, Dipstick Normal (Normal); Ketone-Dipstick Negative (Negative); Leukocyte Esterase-Dipstick 500 /ul (Negative); Nitrite-Dipstick Positive (Negative); Occult Blood-Urine 10 /ul (Negative); Protein-Dipstick 30 mg/dl (Negative); Specific Gravity, Urine 1.015 (1.002-1.030); Urine Bilirubin Dipstick Negative (Negative)
[2025-03-27 10:34] LABS: Squamous Epithelial Cells - UA 10-25 SEEN /hpf (5-10)
== END ==
LOC: OLS.SWAL 08:00
PROVIDERS: PCP Internal Medicine; Visit Provider Internal Medicine
DX: N39.0 Urinary tract infection, site not specified (principal)
CPT/HCPCS: 81001; 87086; 87088; 87186

== ENCOUNTER → 2025-04-22 | Outpatient (REF) | payer MEDICARE, MEDICAID, SELFPAY ==
--- OUTSIDE RECORDS SUMMARY | 2025-04-22 04:46 | XMS RPT_ITS | CCD ---
Author Organization [facility] Care Team Providers Care Guide Changer Name Role Phone Shiv Lopez Unavailable Unavailable [...] MD, Dr. Torres Primary Care Provider Doris Reed MD, Dr. Torres Attending Provider Unavaildiony Reed MD, Dr. Torres Primary Care Physician Jamil Reed MD, Dr. Torres Attending Physician Unavail francia Lu MD, Dr. Sánchez Attending Physician Brianna TOWNSEND, Dr. Torres Primary Care Physician Jamil Reed MD, Dr. Torres Referring Provider Unavaila ble Avela Ryley THOMPSONyothi Attending Unavailable Gudla OLS, Melissa Primary Care Unavailable Shiv Lopez Primary Care Unavailable Gudla Ryley THOMPSONyothi Attending Unavailable Shiv Lopez Primary Care Unavailable Gudla Ryley THOMPSONyothi Attending Unavailable Gudla Ryley THOMPSONyothi Attending Unavailable Gudla OLS, Melissa Primary Care Unavailable Gudla, Melissa Primary Care Unavailable Gudla Ryley THOMPSONyothi Attending Unavailable Gudla, Melissa Primary Care Unavailable Gudla OLSRyleyMelissa Attending Unavailable Gudla, Melissa Primary Care Unavailable Gudla OLSRyleyMelissa Attending Unavailable Gudla, Melissa Primary Care Unavailable Gudla OLS Melissa Attending Unavailable Shiv Lopez Primary Care Unavailable Gudla JAY, Melissa Attending Unavailable Gudla OLS, Melissa Attending Unavailable Gudla OLS, Melissa Primary Care Unavailable Gudla OLS Melissa Attending Unavailable Gudla OLS, Melissa Primary Care Unavailable Gudla JAY, Melissa Attending Unavailable Gudla OLS, Melissa Referring Unavailable Gudla OLS, Melissa Primary Care Unavailable Gudla OLS, Melissa [...] Care Unavailable Gudla OLS, Melissa Attending Unavailable Schwartz Dong THOMPSON Attending Unavailable Gudla OLS, Melissa Primary Care Unavailable John, Shiv Primary Care Unavailable Gudla OLS, Melissa Attending Unavailable Gudla OLS, Melissa Attending Unavailable Gudla, Melissa Primary Care Unavailable Dong Terrell Referring Unavailable Dong Terrell Attending Unavailable Gudla OLS, Melissa Primary Care Unavailable Gudla, Melissa Primary Care Unavailable Gudla OLS, Melissa Attending Unavailable Gudla, Melissa Primary Care Unavailable Gudla OLS, Melissa Referring Unavailable Gudla OLS, Melissa Attending Unavailable John, Shiv Primary Care Unavailable Gudla OLS, Melissa Attending Unavailable Gudla, Melissa Primary Care Unavailable Gudla OLS, Melissa Referring Unavailable Gudla OLS, Melissa Attending Unavailable Gudla, Melissa Primary Care Unavailable Gudla OLS, Melissa Attending Unavailable Gudla, Melissa Primary Care Unavailable Gudla OLS, Melissa Attending Unavailable Gudla OLS, Melissa Attending Unavailable Gudla, Melissa Primary Care Unavailable Allergies Allergy Classification Reported Allergen(s) Allergy Type Date of Onset Reaction(s) Facility Opioid Agonists (2 sources) Codeine Drug Allergy 5 Itching [facility] (20 sources) Codeine Drug Allergy 5 Itching [place] (20 sources) Oxycodone-Aspiri n Propensity to adverse reactions to drug 5 [place] (20 sources) oxyCODONE Drug Allergy 1 Hives [facility] (20 sources) Vancomycin Drug Allergy 1 Rash [facility] (20 sources) Other Allergy to substance 3 [facility] (17 sources) Aspirin Drug Allergy 1 Other [facility] (2 sources) Aluminum aspirin Drug Allergy 1 [facility] (1 source) Aspirin Drug Allergy 1 [facility] Rep[facility] (1 source) oxyCODONE Drug Allergy 1 [facility] (1 source) Vancomycin Drug Allergy 1 [facility] Repository Medications Current Medications Medication Drug Class(es) Dates Sig (Normalized) Sig (Original) acetaminophen 500 mg oral tablet (20 sources) Start: 03-15-2023 take 2 tablets by mouth every six hours as needed for pain Start: 03-15-2023 take 1000 mg by mout [...] take 1 tablet by mouth at bedtime Start: 11-27-2019 End: 10-14-2020 atorvastatin (LIPITOR) 80 [...] take 1 tablet by mouth once daily Start: 10-04-2022 End: 01-12-2023 take 1 tablet [...] oral solution (1 source) alpha-Adrenergic Agonist, Uncompetitive C-zttsha-S-aspartat e Receptor Antagonist, Sigma-1 Agonist Start: 09-10-2018 [...] mouth twice daily as needed for anxiety cefdinir 300 mg oral capsule (1 source) [...] 07/27/2017 Active cephalexin 500 mg oral capsule (17 sources) Cephalosporin Antibacterial Start: 03-15-2023 take 1 capsule by mouth every six hours clindamycin 300 mg oral capsule (1 source) Lincosamide Antibacterial take 1 capsule by mouth three times daily clindamycin (CLEOCIN) 300 MG capsule Take 300 mg by mouth 3 times daily 0 Active docusate sodium 50 mg / sennosides, half-way 8.6 mg oral tablet (20 sources) Start: 03-15-2023 Start: 12-13-2022 End: 02-11-2023 take 1 tablet by mouth once daily senna-docusate sodium (Senokot-S) 8.6-50 MG tablet Indications: Constipation, unspecified constipation type Take 1 tablet by mouth daily. 30 tablet 1 12/13/2022 02/11/2023 Active doxycycline monohydrate 100 mg oral capsule (17 sources) Tetracycline-class Drug Start: 03-17-2023 take 1 capsule by mouth twice daily 0.5 ml dulaglutide 1.5 mg/ml auto-injector (1 [...] every week ergocalciferol (Vitamin D-2) 1.25 MG (40944 UT) capsule Indications: Vitamin D deficiency Take 1 capsule (1.25 mg) by mouth 1 (one) time per week. 90 capsule 1 07/18/2022 Active Start: 06-10-2021 take 1 capsule by mo ut every week vitamin D (ERGOCALCIFEROL) 1.25 MG (88771 UT) CAPS capsule Take 1 capsule by mouth once a week 12 capsule 1 06/10/2021 Active Start: 12-23-2020 Start: 01-16-2020 take 1 capsule by mo uth every week vitamin D (ERGOCALCIFEROL) 1.25 MG (01929 UT) CAPS capsule Take 1 capsule by mouth once a week 12 capsule 1 01/16/2020 Active Start: 10-01-2018 ergocalciferol (DRISDOL) 83683 units capsule 1 capsule every week 8 capsule 1 10/01/2018 Active furosemide 40 mg oral tablet (17 sources) Loop Diuretic Start: 03-15-2023 take 1 tablet by mouth once daily gentamicin 1 mg/ml topical cream (1 source) [...] 1 tablet by mouth three times daily Start: 12-05-2022 End: 12-07-2022 take 10 mg intravenously every six hours as needed for hypertension 10 mg, IntraVENous, Every 6 hours PRN, high blood pressure, for systolic BP>160, Starting on Mon12/05/22 at 1953 hydrOXYzine pamoate 25 mg or al capsule (20 sources) Antihistamine Start: 03-15-2023 Start: 03-15-2023 take 50 mg by mouth [...] Start: 07-26-2021 take 1 tablet by goran every eight hours as needed hydrOXYzine (ATARAX) [...] Start: 10-01-2020 take 1 tablet by goran every eight hours as needed hydrOXYzine (ATARAX) [...] mL 12 03/04/2023 03/03/2024 Active Start: 03-03-2023 Start: 03-03-2023 Insulin Glargi ne Active 19 [...] injector (20 sources) Insulin Analog Start: 03-03-2023 Start: 03-02-2023 End: 03-02-2024 Insulin Lispro (Humalog) [...] Active ammonium lactate 120 mg/ml topical lotion (17 sources) Start: 03-15-2023 levothyroxine sodium 0.125 mg oral tablet (20 [...] tablet 1 06/14/2022 09/12/2022 Active Start: 12-23-2020 Start: 12-23-2020 take 125 ug by mouth [...] 03-03-2023 take 1 capsule by mouth at bed time Start: 03-01-2023 End: 03-03-2023 take 1 tablet by mouth once daily melatonin 3 MG tablet Take 1 tablet (3 mg) by mouth Nightly. 0 03/03/2023 Active menthol 0.0044 mg/mg / zinc oxide 0.206 mg/mg topical ointment (17 sources) Start: 03-15-2023 Start: 03-15-2023 Menthol-Zinc O xide (Calmoseptine) 0.44-20.6 [...] 05/06/2021 Active nystatin 100 unt/mg topical powder (17 sources) Polyene Antifungal Start: 03-15-2023 Start: 03-15-2023 Nystatin (Nyam yc) 100,000 unit/gram [...] take 1 tablet by mouth once daily Start: 07-23-2020 End: 01-29-2021 take 1 tablet by mouth once daily Paroxetine Hcl 20 mg tablet Discontinued 20 mg PO DAILY December 23, 2020 12:00am January 29, 2021 2:58pm Start: 11-13-2018 take 1 tablet by goran th once daily in the morning PARoxetine (PAXIL) 20 MG tablet Take 1 tablet by mouth every morning 90 tablet 0 11/13/2018 Active Petrolatum (17 sources) Start: 03-15-2023 Start: 03-15-2023 Petrolatum 33% (Eucerin Eqivalent) Active [...] take 2 tablets by mouth at bedtime Start: 12-05-2022 End: 02-05-2023 take 1 tablet [...] mg / trimethoprim 160 mg oral tablet (18 sources) Dihydrofolate Reductase Inhibitor Antibacterial, Sulfonamide Antimicrobial Start: 03-17-2023 Start: 03-17-2023 take 1 tablet by goran twice daily Sulfamethoxazole-Trimethoprim Active 1 T ABLET [...] tartrate 2 mg extended release oral capsule (17 sources) Cholinergic Muscarinic Antagonist Start: 03-15-2023 take 1 capsule by mouth once daily traMADol hydrochloride 50 mg oral tablet (3 [...] Active triamcinolone acetonide 0.001 mg/mg topical ointment (17 sources) Corticosteroid Start: 03-15-2023 Completed/Discontinued Medications Medication Drug Class(es) Dates Sig (Normalized) Sig (Original) [id number] 200 actuat albuterol 0.09 mg/actuat metered dose [...] Inhalation, 4 times daily, First dose on 12/05/22 at 2100 Start: 03-10-2022 End: 12-07-2022 albuterol [...] 1 tablet by goran th once daily Start: 02-19-2021 End: 07-15-2021 take 2 tablets [...] mg tablet Discontinued 5 mg PO DAILY 90 3 February 09, 2021 2:54pm February 19, 2021 11:42am Start: 02-01-2021 End: 02-09-2021 take 1 tablet by mouth once daily Amlodipine (Norvasc) 2.5 mg tablet Discontinued 2.5 mg PO DAILY 30 February 01, 2021 12:00am February 09, 2021 [...] CLEANUP) Start: 06-04-2019 Continuous Blo od Gluc Welfare Visitor (FREESTYLE EVIN 14 DAY READER) JO LENGTH [...] tablet Discontinued 25 mg PO DAILY 30 0 December 24, 2020 12:00am January 29, 2021 2:57pm 3 ml insulin degludec 100 unt/ml pen injector (20 sources) Insulin Analog Start: 01-29-2021 End: 03-15-2023 Insulin Degludec (Tresiba Flextouch U-100) 100 unit/mL (3 mL) insulin pen Discontinued 22 U SC TWICE A DAY 0 0 January 29, 2021 2:57pm March 15, 2023 7:29pm Start: 12-24-2020 End: 01-29-2021 Insulin Degludec (Tresiba Fl extouch U-100) 100 unit/mL (3 mL) insulin pen Discontinued 20 U SC TWICE A DAY 0 0 December 24, 2020 1:15pm January 29, [...] 18 U SC TWICE A DAY 0 0 January 29, 2021 2:57pm March 15, 2023 7:29pm Start: 12-24-2020 End: 01-29-2021 Insulin Aspart U-100 (Novolo g Flexpen U-100 Insulin) 100 unit/mL (3 mL) insulin pen Discontinued 10 U SC THREE TIMES A DAY 0 0 December 24, 2020 1:15pm January 29, [...] 08/05/2021 Discontinued (LIST CLEANUP) polyethylene glycol 3350 40065 mg powder for oral solution (3 sources) [...] in past 24 hours. polyethylene glycol 3350 658452 mg / potassium chloride 2970 mg / sodium bicarbonate 6740 mg / sodium chloride 5860 mg / sodium sulfate 68777 mg powder for oral solution (2 sources) [...] 03, 2023 12:00am March 15, 2023 7:30pm Cholesterol Start: 05-24-2021 take 1 tablet by goran [...] at 1900 spironolactone 25 mg oral tablet (19 sources) Aldosterone Antagonist Start: 03-01-2021 End: 03-15-2023 take 1 tablet by mouth once daily Spironolactone 25 mg tablet Discontinued 25 mg PO DAILY 30 March 01, 2021 12:00am March 15, 2023 [...] Nightly PRN, sleep, Starting on Mon12/05/22 at 3 Start: 11-22-2022 take 1 tablet by goran [...] Onset: 5 01-14-2015 Chronic Heart valve disorders (17 sources) Mitral valve annular calcification; Translations: [Mitral [...] 01-16-2020 Chronic Other and ill-defined heart disease (17 sources) Right cardiac ventricular dilatation; Translations: [Cardiomegaly] 01-26-2021 Chronic Other connective tissue disease (20 sources) Pain in toe; Translations: [Pain in left toe(s)] 03-08-2023 Episodic Other connective tissue disease (17 sources) Swelling of lower limb; Translations: [Other specified soft tissue disorders] 12-29-2020 Episodic Other connective tissue disease (6 sources) Pain in left toe(s); Translations: [Pain in limb] 03-18-2023 Episodic Other connective tissue disease (6 sources) Pain in right toe(s); Translations: [Pain in limb] 03-18-2023 Episodic Other connective tissue disease (1 source) Pain of toe of left foot; Translations: [Pain in left toe(s)] 03-26-2023 Episodic Other connective tissue disease (1 source) Pain of toe of right foot; Translations: [Pain in right toe(s)] 03-26-2023 Episodic Other diseases of bladder and urethra (20 sources) Overactive bladder; Translations: [Overactive bladder] Onset: 1 05-06-2021 Chronic Other diseases of veins and lymphatics (20 sources) Lymphedema of bilateral lower limbs; Translations: [Lymphedema, not elsewhere classified] Onset: 2 08-05-2021 Chronic Other diseases of veins and lymphatics (17 sources) Lymphedema; Translations: [Lymphedema, not elsewhere classified] 03-08-2023 Chronic Other diseases of veins and lymphatics (8 sources) Lymphedema, not elsewhere classified; Translations: [Other lymphedema] Onset: 5 03-18-2023 Chronic Other diseases of veins and lymphatics (17 sources) Venous stasis; Translations: [Other specified disorders of veins] 12-23-2020 Episodic Other diseases of veins and lymphatics (17 sources) Peripheral venous insufficiency; Translations: [Venous insufficiency [...] [Restless legs syndrome (RLS)] 03-18-2023 Chronic Other lower respiratory disease (1 source) Dyspnea, unspecified; Translations: [Dyspnea, unspecified] Onset: 5 Episodic Other nervous system disorders (2 sources) Other chronic pain; Translations: [Other chronic pain] Onset: 3 Chronic Other nutritional; endocrine; and metabolic disorders (20 sources) Morbid obesity; Translations: [Morbid (severe) obesity due to excess calories] Onset: 0 01-16-2020 Chronic Other nutritional; endocrine; and metabolic disorders (1 source) Abnormal weight gain; Translations: [Abnormal weight gain] Onset: 5 Episodic Other screening for suspected conditions (not mental disorders or infectious disease) (17 sources) Echocardiogram abnormal; Translations: [Abnormal findings on diagnostic imaging of heart and coronary circulation] 12-24-2020 Episodic Other upper respiratory infections (16 sources) Chronic sinusitis; Translations: [Other chronic sinusitis] Onset: 3 10-25-2022 Chronic Pulmonary heart disease (17 sources) Pulmonary arterial hypertension; Translations: [Secondary pulmonary arterial hypertension] 01-26-2021 Chronic Residual codes; unclassified (20 sources) Insomnia; Translations: [Insomnia, unspecified] Onset: 5 04-06-2015 Episodic Residual codes; unclassified (17 sources) Edema of lower extremity; Translations: [Localized edema] 12-29-2020 Episodic Residual codes; unclassified (17 sources) Edema; Translations: [Edema, unspecified] 03-03-2023 Episodic [...] aftercare (5 sources) Polypharmacy ; Translations: [Other extermination supervisor (current) drug therapy] Onset: 3 03-01-2023 Episodic Other aftercare (2 sources) Other extermination supervisor (current) drug therapy; Translations: [Other extermination supervisor (current) drug therapy] Onset: 3 Episodic Other aftercare (2 sources) 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, [address] [id number] 04-09-2025 [facility] Misc. COMMENT Normal . [facility] Comment on above: Order Comment: 5AMIKACIN TROUGH Result Comment: Test Ordered: Amikacin Trough, Serum Amikacin Trough, Serum 7.1 ug/mL Reference Range: 1.0-8.0 Detection Limit = 0.8 <0.8 indicates None Detected Performed at: - [facility] [id number] [employer]ipe Gauger: Germain Craig PhD, Phone: [phone] Performed By: #### L 500.2500, L501.5200 #### [facility] [address] [place], [address] Hemoglobin A1con 04-08-2025 HbA1c (Bld) [Mass fraction] 7.2 % High <=5.6 [facility] Comment on above: Order Comment: 301.1 Result Comment: Norm al < 5.7 % Prediabetic 5.7 - 6.4 % Diabetic >or= 6.5 % Please note range changes. Performed By: #### L 500.2500, L501.5200 #### [facility] [address] [place], [address] Lipid Profileon 04-08-2025 CHOL:HDL 2.38 Normal [facility] Comment on above: Order Comment: 301.1 Performed By: #### L 500.2500, L501.5200 #### [facility] [address] [place], [address] Cholesterol [Mass/Vol] 159 mg/dL Normal <=200 [facility] Comment on above: Order Comment: 301.1 Result Comment: Chol esterol level, Desirable <200 mg/dL Borderline high cholesterol 200-239 mg/dL High cholesterol >=240 mg/dL Recommendations of the NCEP Adult Treatment Panel for the following risk-cutoff thresholds for the [place] population. Performed By: #### L 500.2500, L501.5200 #### [facility] [address] [place], [address] Cholesterol in HDL [Mass/Vol] 67 mg/dL Normal [facility] Comment on above: Order Comment: 301.1 Result Comment: Misti onal Cholesterol Education Program (NCEP) guidelines: <40 mg/dL: Low HDL-cholesterol (major risk factor for CHD) >= 60 mg/dL: High HDL-cholesterol (negative risk factor for CHD) HDL-cholesterol is affected by a number of factors, e.g. smoking, exercise, hormones, sex and age. Performed By: #### L 500.2500, L501.5200 #### [facility] [address] [place], [address] Cholesterol in LDL [Mass/Vol] 73 mg/dL Normal [facility] Comment on above: Order Comment: 301.1 Result Comment: Bord wizsho=817-747 mg/dL Higher Bmdk=428 mg/dL or greater Ferris Equation 2020 for LDL-C Performed By: #### L 500.2500, L501.5200 #### [facility] [address] [place], [address] Cholesterol in VLDL [Mass/Vol] 21 mg/dL Normal 5-40 [facility] Comment on above: Order Comment: 301.1 Performed By: #### L 500.2500, L501.5200 #### [facility] [address] [place], [address] Triglyceride [Mass/Vol] 105 mg/dL Normal [facility] Comment on above: Order Comment: 301.1 Result Comment: The drugs N-Acetylcysteine and Metamizole may falsely depress this assay. Normal range: <150 mg/dL Borderline High: 150-199 mg/dL High: 200-499 mg/dL Very High: >500 mg/dL Performed By: #### L 500.2500, L501.5200 #### [facility] [address] [place], [address] Thyroid Stim Hormone (TSH)on 04-08-2025 TSH 4.490 uIU/mL High 0.300-4.200 [facility] Comment on above: Order Comment: 301.1 Performed By: #### L 500.2500, L501.5200 #### [facility] [address] [place], [address] Vitamin D,25 Hydroxyon 04-08 Vitamin D 25-OH 57.3 ng/mL Normal 30-100 [facility] Comment on above: Order Comment: 301.1 Result Comment: Tamar min D Status Deficiency: <20 ng/mL (50nmol/L) Insufficiency: 20-30 ng/mL (50-75 nmol/L) Sufficiency: 30-100 ng/mL (75-250 nmol/L) Toxicity: >100 ng/mL (>250 nmol/L) Performed By: #### L 500.2500, L501.5200 #### [facility] [address] [place], [address] Basic Metabolic Profile (BMP )on 04-03-2025 BUN/CRE 20.2 RATIO High 10-20 [facility] Comment on above: Order Comment: 157 Performed By: #### L 501.5200, L500.2500 #### [facility] [address] [place], [address] Calcium [Mass/Vol] 8.6 mg/dL Normal 7.6-11.0 [facility] [place] [facility] Comment on above: Order Comment: 157 Performed By: #### L 501.5200, L500.2500 #### [facility] [address] [place], [address] Chloride [Moles/Vol] 99 mmol/L Normal 98-108 [facility] Comment on above: Order Comment: 157 Performed By: #### L 501.5200, L500.2500 #### [facility] [address] [place], [address] CO2 [Moles/Vol] 29.2 mmol/L Normal 21.0-32.0 [facility] Comment on above: Order Comment: 157 Performed By: #### L 501.5200, L500.2500 #### [facility] [address] [place], [address] Creatinine [Mass/Vol] 1.17 mg/dL Normal 0.70-1.20 [facility] Comment on above: Order Comment: 157 Performed By: #### L 501.5200, L500.2500 #### [facility] [address] [place], [address] GAP 11 Normal 5-15 [facility] Comment on above: Order Comment: 157 Performed By: #### L 501.5200, L500.2500 #### [facility] [address] [place], [address] GFR/1.73 sq M.predicted among non-blacks MDRD (S/P/Bld) [Vol rate/Area] 47 mL/min/{1.73_m2} Low >60 [facility] Comment on above: Order Comment: 157 Result Comment: mL/m in/1.73m2 CKD-EPI Creatinine Equation (2020) Performed By: #### L 501.5200, L500.2500 #### [facility] [address] [place], [address] Glucose [Mass/Vol] 180 mg/dL High 70-99 [facility] [place] [facility] Comment on above: Order Comment: 157 Performed By: #### L 501.5200, L500.2500 #### [facility] [address] [place], [address] Potassium [Moles/Vol] 3.8 mmol/L Normal 3.3-5.1 [facility] Comment on above: Order Comment: 157 Result Comment: Hemo lysis present, Results??could be affected. ?? Performed By: #### L 501.5200, L500.2500 #### [facility] [address] [place], [address] Sodium [Moles/Vol] 139 mmol/L Normal 133-145 [facility] [place] [facility] Comment on above: Order Comment: 157 Performed By: #### L 501.5200, L500.2500 #### [facility] [address] [place], [address] Urea nitrogen [Mass/Vol] 24 mg/dL High 4-19 [facility] Comment on above: Order Comment: 157 Performed By: #### L 501.5200, L500.2500 #### [facility] [address] [place], [address] CBC-Complete Blood Cnt No Di ffon 04-03-2025 Erythrocyte distribution width (RBC) [Ratio] 12.7 % Normal 11.6-14.6 [facility] Comment on above: Order Comment: 157 Performed By: #### L 501.5200, L500.2500 #### [facility] [address] [place], [address] Hematocrit (Bld) [Volume fraction] 40.0 % Normal 37-47 [facility] Comment on above: Order Comment: 157 Performed By: #### L 501.5200, L500.2500 #### [facility] [address] [place], [address] Hemoglobin (Bld) [Mass/Vol] 12.5 g/dL Normal 12.0-15.0 [facility] Comment on above: Order Comment: 157 Performed By: #### L 501.5200, L500.2500 #### [facility] [address] [place], [address] MCH (RBC) [Entitic mass] 30.5 pg Normal 27.0-32.0 [facility] Comment on above: Order Comment: 157 Performed By: #### L 501.5200, L500.2500 #### [facility] [address] [place], [address] MCHC (RBC) [Mass/Vol] 31.3 g/dL Low 32-36 [facility] Comment on above: Order Comment: 157 Performed By: #### L 501.5200, L500.2500 #### [facility] [address] [place], [address] MCV (RBC) [Entitic vol] 97.6 fL Normal 81-99 [facility] Comment on above: Order Comment: 157 Performed By: #### L 501.5200, L500.2500 #### [facility] [address] [place], [address] Platelet mean volume (Bld) [Entitic vol] 10.1 fL Normal 6.2-12.0 [facility] Comment on above: Order Comment: 157 Performed By: #### L 501.5200, L500.2500 #### [facility] [address] [place], [address] Platelets (Bld) [#/Vol] 222 10*3/uL Normal 150-450 [facility] Comment on above: Order Comment: 157 Performed By: #### L 501.5200, L500.2500 #### [facility] [address] [place], [address] RBC (Bld) [#/Vol] 4.10 10*6/uL Low 4.2-5.4 [facility] Comment on above: Order Comment: 157 Performed By: #### L 501.5200, L500.2500 #### [facility] [address] [place], [address] RDW SD 45.2 fl High 35.1-43.9 [facility] Comment on above: Order Comment: 157 Performed By: #### L 501.5200, L500.2500 #### [facility] [address] [place], [address] WBC (Bld) [#/Vol] 8.6 10*3/uL Normal 4.4-11.0 [facility] [place] [facility] Comment on above: Order Comment: 157 Performed By: #### L 501.5200, L500.2500 #### [facility] [address] [place], [address] Urine Cultureon 03-30-2025 [facility] REFER TO [id number] FOR O LABORATORY CARBAPENEMASE TESTING. Urine Culture Copy of report sent to Infection Control Printer [id number] 03/29/25 0748 SANDEEP. Urine Culture ESBL Escherichia coli [place] Count >100,000 MARKER Possible Carbapenemase producing EnterobacteriaceaeA MARKER Possible Carbapenemase producing EnterobacteriaceaeA Amikacin Islt LAVINIA <=1 S Ampicillin Islt LAVINIA >=32 Ampicillin+Sulbac Islt LAVINIA >=32 R Cefepime Islt LAVINIA >=32 R Eravacycline Islt LAVINIA <=0.12 S cefTRIAXone Islt LAVINIA >=64 R Ciprofloxacin Islt LAVINIA >=4 R B-Lactamase Extended Susc Islt POS Gentamicin Islt LAVINIA <=1 S Imipenem Islt LAVINIA <=0.25 S levoFLOXacin Islt LAVINIA >=8 R Meropenem Islt LAVINIA <=0.25 S Nitrofurantoin Islt LAVINIA <=16 S Pip+Tazo Islt LAVINIA >=128 R Tobramycin Islt LAVINIA <=1 S TMP SMX Islt LAVINIA >=320 R Normal [facility] Comment on above: Performed By: #### M 100.2200, L400.0001 #### [facility] [address] [place], [address] Urinalysis, Completeon 03-27 BACTERIA 2+ /hpf Normal None Seen [facility] Comment on above: Order Comment: CLEAN CATCH Performed By: #### M 100.2200, L400.0001 #### [facility] [address] [place], [address] EPI,SQUAMOUS 10-25 SEEN Normal 5-10 [facility] Comment on above: Order Comment: CLEAN CATCH Performed By: #### M 100.2200, L400.0001 #### [facility] [address] [place], [address] WBC >100 SEEN Normal 0-5 [facility] Comment on above: Order Comment: CLEAN CATCH Performed By: #### M 100.2200, L400.0001 #### [facility] [address] [place], [address] Mucus Ql (Urine sed) 0 SEEN Normal [facility] Comment on above: Order Comment: CLEAN CATCH Performed By: #### M 100.2200, L400.0001 #### [facility] [address] [place], [address] RBC 0 SEEN Normal 0-5 [facility] Comment on above: Order Comment: CLEAN CATCH Performed By: #### M 100.2200, L400.0001 #### [facility] [address] [place], [address] Anion gap in Serum or Plasma Ordered By: Melissa Reed on 03-20-2025 Anion gap [Moles/Vol] 11 mmol/L 10-31 [facility] BUN/creatinine ratioOrdered By: Melissa Reed on 03-20-2025 Urea nitrogen/Creatinine [Mass ratio] 19.3 mg/mg 04-07 [facility] Basic Metabolic Profile (BMP )on 03-20-2025 BUN/CRE 19.3 RATIO Normal 04-07 [facility] Comment on above: Order Comment: 157 Performed By: #### L 501.5200, L500.2500 #### [facility] [address] [place], [address] GAP 11 Normal 10-31 [facility] Comment on above: Order Comment: 157 Performed By: #### L 501.5200, L500.2500 #### [facility] [address] [place], [address] Potassium [Moles/Vol] 3.8 mmol/L Normal 3.3-5.1 [facility] Comment on above: Order Comment: 157 Performed By: #### L 501.5200, L500.2500 #### [facility] [address] [place], [address] Carbon dioxide, total [Moles /volume] in Central venous bloodOrdered By: Melissa Reed on 03-20-2025 CO2 [Moles/Vol] 28.7 mmol/L Normal 21.0-32.0 [facility] Comment on above: Order Comment: 157 Performed By: #### L 501.5200, L500.2500 #### [facility] [address] [place], [place], [id number] Chloride assayOrdered By: Sd Reed on 03-20-2025 Chloride [Moles/Vol] 100 mmol/L Normal 98-108 [facility] Comment on above: Order Comment: 157 Performed By: #### L 501.5200, L500.2500 #### [facility] [address] [place], [place], [address] Glomerular filtration rate ( GFR) estimation/1.73 sq m using serum, plasma, or whole bOrdered By: Melissa Reed on 03-20-2025 GFR/1.73 sq M.predicted among non-blacks MDRD (S/P/Bld) [Vol rate/Area] 55 mL/min/{1.73_m2} Low >60 [facility] Comment on above: mL/min/1.73m2 CKD-EP I Creatinine Equation (2020) Order Comment: 157 Result Comment: mL/m in/1.73m2 CKD-EPI Creatinine Equation (2020) Performed By: #### L 501.5200, L500.2500 #### [facility] [address] [place], [place], [id number] Magnesiumon 03-20-2025 Magnesium [Mass/Vol] 2.1 mg/dL Normal 1.5-2.2 [facility] Comment on above: Order Comment: 157 Performed By: #### L 501.5200, L500.2500 #### [facility] [address] [place], [address] Magnesium measurement (mass/ volume)Ordered By: Melissa Reed on 03-20-2025 Magnesium (Unsp spec) [Mass/Vol] 2.1 mg/dL 1.5-2.2 [facility] Potassium measurement (mass/ volume)Ordered By: Melissa Reed on 03-20-2025 Potassium (Unsp spec) [Mass/Vol] 3.8 mmol/L 3.3-5.1 [facility] Serum creatinine measurement (mass/volume)Ordered By: Melissa Reed on 03-20-2025 Creatinine [Mass/Vol] 1.03 mg/dL Normal 0.70-1.20 [facility] Comment on above: Order Comment: 157 Performed By: #### L 501.5200, L500.2500 #### [facility] [address] [place], [address] Serum glucose measurement (m ass/volume)Ordered By: Melissa Reed on 03-20-2025 Glucose [Mass/Vol] 183 mg/dL High 70-99 [facility] [place] [facility] Comment on above: Order Comment: 157 Performed By: #### L 501.5200, L500.2500 #### [facility] [address] [place], [address] Serum or plasma calcium danae urement (mass/volume)Ordered By: Melissa Reed on 03-20-2025 Calcium [Mass/Vol] 8.9 mg/dL Normal 7.6-11.0 [facility] [place] [facility] Comment on above: Order Comment: 157 Performed By: #### L 501.5200, L500.2500 #### [facility] [address] [place], [address] Serum or plasma urea nitroge n measurement (mass/volume)Ordered By: Melissa Reed on 03-20-2025 Urea nitrogen [Mass/Vol] 20 mg/dL High 4-19 [facility] Comment on above: Order Comment: 157 Performed By: #### L 501.5200, L500.2500 #### [facility] [address] [place], [address] Sodium levelOrdered By: Rubin Reed on 03-20-2025 Sodium [Moles/Vol] 139 mmol/L Normal 133-145 [facility] [place] [facility] Comment on above: Order Comment: 157 Performed By: #### L 501.5200, L500.2500 #### [facility] [address] [place], [place], [id number] (651) Hemoglobin A1con 03-14-2025 HbA1c (Bld) [Mass fraction] 6.8 % High <=5.6 [facility] Comment on above: Order Comment: 157 Result Comment: Norm al < 5.7 % Prediabetic 5.7 - 6.4 % Diabetic >or= 6.5 % Please note range changes. Performed By: #### L 501.5200, L500.2500 #### [facility] [address] [place], [place], [id number] Hemoglobin A1c percentageOrd ered By: Melissa Reed on 03-14-2025 HbA1c (Bld) [Mass fraction] 6.8 % High <5.7 [facility] Comment on above: Normal < 5.7 % Predi abetic 5.7 - 6.4 % Diabetic >or= 6.5 % Please note range changes. Anion gap in Serum or Plasma Ordered By: Melissa Reed on 03-10-2025 Anion gap [Moles/Vol] 10 mmol/L 5-15 [facility] BUN/creatinine ratioOrdered By: Melissa Reed on 03-10-2025 Urea nitrogen/Creatinine [Mass ratio] 22.7 mg/mg High - [facility] Basic Metabolic Profile (BMP )on 03-10-2025 BUN/CRE 22.7 RATIO High 04-07 [facility] Comment on above: Order Comment: 157 Performed By: #### M 100.2200, L400.0001 #### [facility] [address] [place], [address] Calcium [Mass/Vol] 8.6 mg/dL Normal 7.6-11.0 [facility] [place] [facility] Comment on above: Order Comment: 157 Performed By: #### M 100.2200, L400.0001 #### [facility] [address] [place], [address] Chloride [Moles/Vol] 100 mmol/L Normal 98-108 [facility] Comment on above: Order Comment: 157 Performed By: #### M 100.2200, L400.0001 #### [facility] [address] [place], [address] CO2 [Moles/Vol] 28.0 mmol/L Normal 21.0-32.0 [facility] Comment on above: Order Comment: 157 Performed By: #### M 100.2199, L400.0001 #### [facility] [address] [place], [address] Creatinine [Mass/Vol] 1.08 mg/dL Normal 0.70-1.20 [facility] Comment on above: Order Comment: 157 Performed By: #### M 100.2199, L400.0001 #### [facility] [address] [place], [address] GAP 10 Normal 5-15 [facility] Comment on above: Order Comment: 157 Performed By: #### M 100.2199, L400.0001 #### [facility] [address] [place], [address] GFR/1.73 sq M.predicted among non-blacks MDRD (S/P/Bld) [Vol rate/Area] 52 mL/min/{1.73_m2} Low >60 [facility] Comment on above: Order Comment: 157 Result Comment: mL/m in/1.73m2 CKD-EPI Creatinine Equation (2020) Performed By: #### M 100.2199, L400.0001 #### [facility] [address] [place], [address] Glucose [Mass/Vol] 235 mg/dL High 70-99 [facility] [place] [facility] Comment on above: Order Comment: 157 Performed By: #### M 100.2200, L400.0001 #### [facility] [address] [place], [address] Potassium [Moles/Vol] 3.7 mmol/L Normal 3.3-5.1 [facility] Comment on above: Order Comment: 157 Performed By: #### M 100.2200, L400.0001 #### [facility] [address] [place], [address] Sodium [Moles/Vol] 138 mmol/L Normal 133-145 [facility] [place] [facility] Comment on above: Order Comment: 157 Performed By: #### M 100.2200, L400.0001 #### [facility] [address] [place], [address] Urea nitrogen [Mass/Vol] 25 mg/dL High 4-19 [facility] Comment on above: Order Comment: 157 Performed By: #### M 100.2200, L400.0001 #### [facility] [address] [place], [address] Carbon dioxide, total [Moles /volume] in Central venous bloodOrdered By: Melissa Reed on 03-10-2025 CO2 [Moles/Vol] 28.0 mmol/L 21.0-32.0 [facility] Chloride assayOrdered By: Sd Reed on 03-10-2025 Chloride [Moles/Vol] 100 mmol/L 98-108 [facility] Glomerular filtration rate ( GFR) estimation/1.73 sq m using serum, plasma, or whole bOrdered By: Melissa Reed on 03-10-2025 GFR/1.73 sq M.predicted among non-blacks MDRD (S/P/Bld) [Vol rate/Area] 52 mL/min/{1.73_m2} Low >60 [facility] Comment on above: mL/min/1.73m2 CKD-EP I Creatinine Equation (2020) Natriuretic peptide.B prohor brenda N-Terminal [Mass/volume] in Serum or PlasmaOrdered By: Melissa Reed on 03-10-2025 Natriuretic peptide.B prohormone N-Terminal [Mass/Vol] 179 pg/mL <1800 [facility] Comment on above: Heart Failure Unlike ly: < 300 pg/mLHeart Failure Likely< 50 Years: > 450 pg/mL50-75 Years: > 900 pg/mL>75 Years: > 1800 pg/mL Potassium measurement (mass/ volume)Ordered By: Melissa Reed on 03-10-2025 Potassium (Unsp spec) [Mass/Vol] 3.7 mmol/L 3.3-5.1 [facility] Pro- Brain NATRIURETIC PEPTI Elizabeth 03-10-2025 Natriuretic peptide B (Bld) [Mass/Vol] 179 pg/mL Normal <=1800 [facility] Comment on above: Order Comment: 157 Result Comment: Hear t Failure Unlikely: < 300 pg/mL Heart Failure Likely < 50 Years: > 450 pg/mL 50-75 Years: > 900 pg/mL >75 Years: > 1800 pg/mL Performed By: #### M 100.2200, L400.0001 #### [facility] [address] [place], [address] Serum creatinine measurement (mass/volume)Ordered By: Melissa Reed on 03-10-2025 Creatinine [Mass/Vol] 1.08 mg/dL 0.70-1.20 [facility] Serum glucose measurement (m ass/volume)Ordered By: Melissa Reed on 03-10-2025 Glucose [Mass/Vol] 235 mg/dL High 70-99 [facility] [place] [facility] Serum or plasma calcium danae urement (mass/volume)Ordered By: Melissa Reed on 03-10-2025 Calcium [Mass/Vol] 8.6 mg/dL 7.6-11.0 [facility] [place] [facility] Serum or plasma urea nitroge n measurement (mass/volume)Ordered By: Melissa Reed on 03-10-2025 Urea nitrogen [Mass/Vol] 25 mg/dL High 4-19 [facility] Sodium levelOrdered By: Rubin Reed on 03-10-2025 Sodium [Moles/Vol] 138 mmol/L 133-145 [facility] [place] [facility] Anion gap in Serum or Plasma Ordered By: Melissa Reed on 03-06-2025 Anion gap [Moles/Vol] 11 mmol/L - [facility] BUN/creatinine ratioOrdered By: Melissa Reed on 03-06-2025 Urea nitrogen/Creatinine [Mass ratio] 22.3 mg/mg High 04-07 [facility] Basic Metabolic Profile (BMP )on 03-06-2025 BUN/CRE 22.3 RATIO High 04-07 [facility] Comment on above: Order Comment: 157 Performed By: #### L 501.5200, L500.2500 #### [facility] [address] [place], [address] Calcium [Mass/Vol] 8.8 mg/dL Normal 7.6-11.0 [facility] [place] [facility] Comment on above: Order Comment: 157 Performed By: #### L 501.5200, L500.2500 #### [facility] [address] [place], [address] Chloride [Moles/Vol] 101 mmol/L Normal 98-108 [facility] Comment on above: Order Comment: 157 Performed By: #### L 501.5200, L500.2500 #### [facility] [address] [place], [address] CO2 [Moles/Vol] 26.7 mmol/L Normal 21.0-32.0 [facility] Comment on above: Order Comment: 157 Performed By: #### L 501.5200, L500.2500 #### [facility] [address] [place], [address] Creatinine [Mass/Vol] 1.08 mg/dL Normal 0.70-1.20 [facility] Comment on above: Order Comment: 157 Performed By: #### L 501.5200, L500.2500 #### [facility] [address] [place], [address] GAP 11 Normal -15 [facility] Comment on above: Order Comment: 157 Performed By: #### L 501.5200, L500.2500 #### [facility] [address] [place], [address] GFR/1.73 sq M.predicted among non-blacks MDRD (S/P/Bld) [Vol rate/Area] 52 mL/min/{1.73_m2} Low >60 [facility] Comment on above: Order Comment: 157 Result Comment: mL/m in/1.73m2 CKD-EPI Creatinine Equation (2020) Performed By: #### L 501.5200, L500.2500 #### [facility] [address] [place], [address] Glucose [Mass/Vol] 173 mg/dL High 70-99 [facility] [place] [facility] Comment on above: Order Comment: 157 Performed By: #### L 501.5200, L500.2500 #### [facility] [address] [place], [address] Potassium [Moles/Vol] 4.2 mmol/L Normal 3.3-5.1 [facility] Comment on above: Order Comment: 157 Performed By: #### L 501.5200, L500.2500 #### [facility] [address] [place], [address] Sodium [Moles/Vol] 139 mmol/L Normal 133-145 [facility] [place] [facility] Comment on above: Order Comment: 157 Performed By: #### L 501.5200, L500.2500 #### [facility] [address] [place], [address] Urea nitrogen [Mass/Vol] 24 mg/dL High 4-19 [facility] Comment on above: Order Comment: 157 Performed By: #### L 501.5200, L500.2500 #### [facility] [address] [place], [address] Carbon dioxide, total [Moles /volume] in Central venous bloodOrdered By: Melissa Reed on 03-06-2025 CO2 [Moles/Vol] 26.7 mmol/L 21.0-32.0 [facility] Chloride assayOrdered By: Sd Reed on 03-06-2025 Chloride [Moles/Vol] 101 mmol/L 98-108 [facility] Glomerular filtration rate ( GFR) estimation/1.73 sq m using serum, plasma, or whole bOrdered By: Melissa Reed on 03-06-2025 GFR/1.73 sq M.predicted among non-blacks MDRD (S/P/Bld) [Vol rate/Area] 52 mL/min/{1.73_m2} Low >60 [facility] Comment on above: mL/min/1.73m2 CKD-EP I Creatinine Equation (2020) Magnesiumon 03-06-2025 Magnesium [Mass/Vol] 2.3 mg/dL High 1.5-2.2 [facility] Comment on above: Order Comment: 157 Performed By: #### L 501.5200, L500.2500 #### [facility] [address] [place] [address]. [place], [place], [address] Magnesium measurement (mass/ volume)Ordered By: Melissa Reed on 03-06-2025 Magnesium (Unsp spec) [Mass/Vol] 2.3 mg/dL High 1.5-2.2 [facility] Potassium measurement (mass/ volume)Ordered By: Melissa Reed on 03-06-2025 Potassium (Unsp spec) [Mass/Vol] 4.2 mmol/L 3.3-5.1 [facility] Serum creatinine measurement (mass/volume)Ordered By: Melissa Reed on 03-06-2025 Creatinine [Mass/Vol] 1.08 mg/dL 0.70-1.20 [facility] Serum glucose measurement (m ass/volume)Ordered By: Melissa Reed on 03-06-2025 Glucose [Mass/Vol] 173 mg/dL High 70-99 [facility] [place] [facility] Serum or plasma calcium danae urement (mass/volume)Ordered By: Melissa Reed on 03-06-2025 Calcium [Mass/Vol] 8.8 mg/dL 7.6-11.0 [facility] [place] [facility] Serum or plasma urea nitroge n measurement (mass/volume)Ordered By: Melissa Reed on 03-06-2025 Urea nitrogen [Mass/Vol] 24 mg/dL High 4-19 [facility] Sodium levelOrdered By: Rubin Reed on 03-06-2025 Sodium [Moles/Vol] 139 mmol/L 133-145 [facility] [place] [facility] Anion gap in Serum or Plasma Ordered By: Melissa Reed on 02-20-2025 Anion gap [Moles/Vol] 10 mmol/L 5-15 [facility] BUN/creatinine ratioOrdered By: Melissa Reed on 02-20-2025 Urea nitrogen/Creatinine [Mass ratio] 22.1 mg/mg High 10-20 [facility] Basic Metabolic Profile (BMP )on 02-20-2025 BUN/CRE 22.1 RATIO High 10- [facility] Comment on above: Order Comment: 157 Performed By: #### L 501.5200, L500.2500 #### [facility] [address] [place], [address] Calcium [Mass/Vol] 9.0 mg/dL Normal 7.6-11.0 [facility] [place] [facility] Comment on above: Order Comment: 157 Performed By: #### L 501.5200, L500.2500 #### [facility] [address] [place], [address] Chloride [Moles/Vol] 102 mmol/L Normal 98-108 [facility] Comment on above: Order Comment: 157 Performed By: #### L 501.5200, L500.2500 #### [facility] [address] [place], [address] CO2 [Moles/Vol] 27.8 mmol/L Normal 21.0-32.0 [facility] Comment on above: Order Comment: 157 Performed By: #### L 501.5200, L500.2500 #### [facility] [address] [place], [address] Creatinine [Mass/Vol] 1.16 mg/dL Normal 0.70-1.20 [facility] Comment on above: Order Comment: 157 Performed By: #### L 501.5200, L500.2500 #### [facility] [address] [place], [address] GAP 10 Normal 5-15 [facility] Comment on above: Order Comment: 157 Performed By: #### L 501.5200, L500.2500 #### [facility] [address] [place], [address] GFR/1.73 sq M.predicted among non-blacks MDRD (S/P/Bld) [Vol rate/Area] 47 mL/min/{1.73_m2} Low >60 [facility] Comment on above: Order Comment: 157 Result Comment: mL/m in/1.73m2 CKD-EPI Creatinine Equation (2020) Performed By: #### L 501.5200, L500.2500 #### [facility] [address] [place], [address] Glucose [Mass/Vol] 128 mg/dL High 70-99 [facility] [place] [facility] Comment on above: Order Comment: 157 Performed By: #### L 501.5200, L500.2500 #### [facility] [address] [place], [address] Potassium [Moles/Vol] 4.4 mmol/L Normal 3.3-5.1 [facility] Comment on above: Order Comment: 157 Performed By: #### L 501.5200, L500.2500 #### [facility] [address] [place], [address] Sodium [Moles/Vol] 140 mmol/L Normal 133-145 [facility] [place] [facility] Comment on above: Order Comment: 157 Performed By: #### L 501.5200, L500.2500 #### [facility] [address] [place], [address] Urea nitrogen [Mass/Vol] 26 mg/dL High 4-19 [facility] Comment on above: Order Comment: 157 Performed By: #### L 501.5200, L500.2500 #### [facility] [address] [place], [place], [id number] Carbon dioxide, total [Moles /volume] in Central venous bloodOrdered By: Melissa Reed on 02-20-2025 CO2 [Moles/Vol] 27.8 mmol/L 21.0-32.0 [facility] Chloride assayOrdered By: Sd Reed on 02-20-2025 Chloride [Moles/Vol] 102 mmol/L 98-108 [facility] Glomerular filtration rate ( GFR) estimation/1.73 sq m using serum, plasma, or whole bOrdered By: Melissa Reed on 02-20-2025 GFR/1.73 sq M.predicted among non-blacks MDRD (S/P/Bld) [Vol rate/Area] 47 mL/min/{1.73_m2} Low >60 [facility] Comment on above: mL/min/1.73m2 CKD-EP I Creatinine Equation (2020) Magnesiumon 02-20-2025 Magnesium [Mass/Vol] 2.4 mg/dL High 1.5-2.2 [facility] Comment on above: Order Comment: 157 Performed By: #### L 501.5200, L500.2500 #### [facility] [address] [place], [place], [address] Magnesium measurement (mass/ volume)Ordered By: Melissa Reed on 02-20-2025 Magnesium (Unsp spec) [Mass/Vol] 2.4 mg/dL High 1.5-2.2 [facility] Potassium measurement (mass/ volume)Ordered By: Melissa Reed on 02-20-2025 Potassium (Unsp spec) [Mass/Vol] 4.4 mmol/L 3.3-5.1 [facility] Serum creatinine measurement (mass/volume)Ordered By: Melissa Reed on 02-20-2025 Creatinine [Mass/Vol] 1.16 mg/dL 0.70-1.20 [facility] Serum glucose measurement (m ass/volume)Ordered By: Melissa Reed on 02-20-2025 Glucose [Mass/Vol] 128 mg/dL High 70-99 [facility] [place] [facility] Serum or plasma calcium danae urement (mass/volume)Ordered By: Melissa Reed on 02-20-2025 Calcium [Mass/Vol] 9.0 mg/dL 7.6-11.0 [facility] [place] [facility] Serum or plasma urea nitroge n measurement (mass/volume)Ordered By: Melissa Reed on 02-20-2025 Urea nitrogen [Mass/Vol] 26 mg/dL High -19 [facility] Sodium levelOrdered By: Rubin Reed on 02-20-2025 Sodium [Moles/Vol] 140 mmol/L 133-145 [facility] [place] [facility] Anion gap in Serum or Plasma Ordered By: Melissa Reed on 02-06-2025 Anion gap [Moles/Vol] 9 mmol/L - [facility] BUN/creatinine ratioOrdered By: Melissa Reed on 02-06-2025 Urea nitrogen/Creatinine [Mass ratio] 22.7 mg/mg High - [facility] Basic Metabolic Profile (BMP )on 02-06-2025 BUN/CRE 22.7 RATIO High [facility] Comment on above: Order Comment: 157 Performed By: #### L 500.2499, L501.5200 #### [facility] [address] [place], [address] GAP 9 Normal - [facility] Comment on above: Order Comment: 157 Performed By: #### L 500.2500, L501.5200 #### [facility] [address] [place], [address] Potassium [Moles/Vol] 4.1 mmol/L Normal 3.3-5.1 [facility] Comment on above: Order Comment: 157 Performed By: #### L 500.2500, L501.5200 #### [facility] [address] [place], [place], [id number] Carbon dioxide, total [Moles /volume] in Central venous bloodOrdered By: Melissa Reed on 02-06-2025 CO2 [Moles/Vol] 28.5 mmol/L Normal 21.0-32.0 [facility] Comment on above: Order Comment: 157 Performed By: #### L 500.2500, L501.5200 #### [facility] [address] [place], [address] Chloride assayOrdered By: Sd Reed on 02-06-2025 Chloride [Moles/Vol] 102 mmol/L Normal 98-108 [facility] Comment on above: Order Comment: 157 Performed By: #### L 500.2500, L501.5200 #### [facility] [address] [place], [address] Glomerular filtration rate ( GFR) estimation/1.73 sq m using serum, plasma, or whole bOrdered By: Melissa Reed on 02-06-2025 GFR/1.73 sq M.predicted among non-blacks MDRD (S/P/Bld) [Vol rate/Area] 54 mL/min/{1.73_m2} Low >60 [facility] Comment on above: mL/min/1.73m2 CKD-EP I Creatinine Equation (2020) Order Comment: 157 Result Comment: mL/m in/1.73m2 CKD-EPI Creatinine Equation (2020) Performed By: #### L 500.2500, L501.5200 #### [facility] [address] [place], [address] Magnesiumon 02-06-2025 Magnesium [Mass/Vol] 2.1 mg/dL Normal 1.5-2.2 [facility] Comment on above: Order Comment: 157 Performed By: #### L 500.2500, L501.5200 #### [facility] [address] [place], [address] Magnesium measurement (mass/ volume)Ordered By: Melissa Millsnaz on 02-06-2025 Magnesium (Unsp spec) [Mass/Vol] 2.1 mg/dL 1.5-2.2 [facility] Potassium measurement (mass/ volume)Ordered By: Melissa Millsnaz on 02-06-2025 Potassium (Unsp spec) [Mass/Vol] 4.1 mmol/L 3.3-5.1 [facility] Serum creatinine measurement (mass/volume)Ordered By: Melissa Millsnaz on 02-06-2025 Creatinine [Mass/Vol] 1.04 mg/dL Normal 0.70-1.20 [facility] Comment on above: Order Comment: 157 Performed By: #### L 500.2500, L501.5200 #### [facility] [address] [place], [address] Serum glucose measurement (m ass/volume)Ordered By: Melissa Reed on 02-06-2025 Glucose [Mass/Vol] 131 mg/dL High 70-99 [facility] [place] Comment on above: Order Comment: 157 Performed By: #### L 500.2500, L501.5200 #### [facility] [address] [place], [address] Serum or plasma calcium danae urement (mass/volume)Ordered By: Melissa Reed on 02-06-2025 Calcium [Mass/Vol] 8.8 mg/dL Normal 7.6-11.0 [facility] [place] [facility] Comment on above: Order Comment: 157 Performed By: #### L 500.2500, L501.5200 #### [facility] [address] [place], [address] Serum or plasma urea nitroge n measurement (mass/volume)Ordered By: Melissa Genenaz on 02-06-2025 Urea nitrogen [Mass/Vol] 24 mg/dL High 4-19 [facility] Comment on above: Order Comment: 157 Performed By: #### L 500.2500, L501.5200 #### [facility] [address] [place] [place], [address] Sodium levelOrdered By: Rubin Reed on 02-06-2025 Sodium [Moles/Vol] 140 mmol/L Normal 133-145 [facility] [place] [facility] Comment on above: Order Comment: 157 Performed By: #### L 500.2500, L501.5200 #### [facility] [address] [place], [address] Anion gap in Serum or Plasma Ordered By: Melissa Reed on 01-23-2025 Anion gap [Moles/Vol] 10 mmol/L 5-15 [facility] BUN/creatinine ratioOrdered By: Melissa Reed on 01-23-2025 Urea nitrogen/Creatinine [Mass ratio] 25.3 mg/mg High 10-20 [facility] Basic Metabolic Profile (BMP )on 01-23-2025 BUN/CRE 25.3 RATIO High 10-20 [facility] Comment on above: Order Comment: 157 Performed By: #### L 501.5200, L500.2500 #### [facility] [address] [place], [address] Calcium [Mass/Vol] 8.8 mg/dL Normal 7.6-11.0 [facility] [place] [facility] Comment on above: Order Comment: 157 Performed By: #### L 501.5200, L500.2500 #### [facility] [address] [place] [place], [address] Chloride [Moles/Vol] 102 mmol/L Normal 98-108 [facility] Comment on above: Order Comment: 157 Performed By: #### L 501.5200, L500.2500 #### [facility] [address] [place], [address] CO2 [Moles/Vol] 26.3 mmol/L Normal 21.0-32.0 [facility] Comment on above: Order Comment: 157 Performed By: #### L 501.5200, L500.2500 #### [facility] [address] [place], [address] Creatinine [Mass/Vol] 1.06 mg/dL Normal 0.70-1.20 [facility] Comment on above: Order Comment: 157 Performed By: #### L 501.5200, L500.2500 #### [facility] [address] [place], [address] GAP 10 Normal 5-15 [facility] Comment on above: Order Comment: 157 Performed By: #### L 501.5200, L500.2500 #### [facility] [address] [place], [address] GFR/1.73 sq M.predicted among non-blacks MDRD (S/P/Bld) [Vol rate/Area] 53 mL/min/{1.73_m2} Low >60 [facility] Comment on above: Order Comment: 157 Result Comment: mL/m in/1.73m2 CKD-EPI Creatinine Equation (2020) Performed By: #### L 501.5200, L500.2500 #### [facility] [address] [place], [address] Glucose [Mass/Vol] 139 mg/dL High 70-99 [facility] [place] [facility] Comment on above: Order Comment: 157 Performed By: #### L 501.5200, L500.2500 #### [facility] [address] [place], [address] Potassium [Moles/Vol] 4.3 mmol/L Normal 3.3-5.1 [facility] Comment on above: Order Comment: 157 Result Comment: Hemo lysis present, Results??could be affected. ?? Performed By: #### L 501.5200, L500.2500 #### [facility] [address] [place], [address] Sodium [Moles/Vol] 138 mmol/L Normal 133-145 [facility] [place] [facility] Comment on above: Order Comment: 157 Performed By: #### L 501.5200, L500.2500 #### [facility] [address] [place], [place], [id number] Urea nitrogen [Mass/Vol] 27 mg/dL High 4-19 [facility] Comment on above: Order Comment: 157 Performed By: #### L 501.5200, L500.2500 #### [facility] [address] [place], [address] Carbon dioxide, total [Moles /volume] in Central venous bloodOrdered By: Melissa Reed on 01-23-2025 CO2 [Moles/Vol] 26.3 mmol/L 21.0-32.0 [facility] Chloride assayOrdered By: Sd Reed on 01-23-2025 Chloride [Moles/Vol] 102 mmol/L 98-108 [facility] Glomerular filtration rate ( GFR) estimation/1.73 sq m using serum, plasma, or whole bOrdered By: Melissa Reed on 01-23-2025 GFR/1.73 sq M.predicted among non-blacks MDRD (S/P/Bld) [Vol rate/Area] 53 mL/min/{1.73_m2} Low >60 [facility] Comment on above: mL/min/1.73m2 CKD-EP I Creatinine Equation (2020) Magnesiumon 01-23-2025 Magnesium [Mass/Vol] 2.2 mg/dL Normal 1.5-2.2 [facility] Comment on above: Order Comment: 157 Performed By: #### L 501.5200, L500.2500 #### [facility] [address] [place], [place], [id number] Magnesium measurement (mass/ volume)Ordered By: Melissa Reed on 01-23-2025 Magnesium (Unsp spec) [Mass/Vol] 2.2 mg/dL 1.5-2.2 [facility] Potassium measurement (mass/ volume)Ordered By: Melissa Reed on 01-23-2025 Potassium (Unsp spec) [Mass/Vol] 4.3 mmol/L 3.3-5.1 [facility] Comment on above: Hemolysis present, R esults could be affected. Serum creatinine measurement (mass/volume)Ordered By: Melissa Reed on 01-23-2025 Creatinine [Mass/Vol] 1.06 mg/dL 0.70-1.20 [facility] Serum glucose measurement (m ass/volume)Ordered By: Melissa Reed on 01-23-2025 Glucose [Mass/Vol] 139 mg/dL High 70-99 [facility] [place] [facility] Serum or plasma calcium danae urement (mass/volume)Ordered By: Melissa Reed on 01-23-2025 Calcium [Mass/Vol] 8.8 mg/dL 7.6-11.0 [facility] [place] [facility] Serum or plasma urea nitroge n measurement (mass/volume)Ordered By: Melissa Reed on 01-23-2025 Urea nitrogen [Mass/Vol] 27 mg/dL High 4-19 [facility] Sodium levelOrdered By: Rubin Reed on 01-23-2025 Sodium [Moles/Vol] 138 mmol/L 133-145 [facility] [place] [facility] Anion gap in Serum or Plasma Ordered By: Melissa Reed on 01-09-2025 Anion gap [Moles/Vol] 8 mmol/L 10-31 [facility] BUN/creatinine ratioOrdered By: Melissa Reed on 01-09-2025 Urea nitrogen/Creatinine [Mass ratio] 22.0 mg/mg High 04-07 [facility] Basic Metabolic Profile (BMP )on 01-09-2025 BUN/CRE 22.0 RATIO High 04-07 [facility] Comment on above: Performed By: #### L 500.2500, L501.5200 #### [facility] [address] [place], [address] GAP 8 Normal - [facility] Comment on above: Performed By: #### L 500.2500, L501.5200 #### [facility] [address] [place], [address] Potassium [Moles/Vol] 4.5 mmol/L Normal 3.3-5.1 [facility] Comment on above: Result Comment: Hemo lysis present, Results??could be affected. ?? Performed By: #### L 500.2500, L501.5200 #### [facility] [address] [place], [address] Carbon dioxide, total [Moles /volume] in Central venous bloodOrdered By: Melissa Reed on 01-09-2025 CO2 [Moles/Vol] 29.7 mmol/L Normal 21.0-32.0 [facility] Comment on above: Performed By: #### L 500.2500, L501.5200 #### [facility] [address] [place], [address] Chloride assayOrdered By: Sd Reed on 01-09-2025 Chloride [Moles/Vol] 103 mmol/L Normal 98-108 [facility] Comment on above: Performed By: #### L 500.2500, L501.5200 #### [facility] [address] [place], [address] Glomerular filtration rate ( GFR) estimation/1.73 sq m using serum, plasma, or whole bOrdered By: Melissa Reed on 01-09-2025 GFR/1.73 sq M.predicted among non-blacks MDRD (S/P/Bld) [Vol rate/Area] 52 mL/min/{1.73_m2} Low >60 [facility] Comment on above: mL/min/1.73m2 CKD-EP I Creatinine Equation (2020) Result Comment: mL/m in/1.73m2 CKD-EPI Creatinine Equation (2020) Performed By: #### L 500.2500, L501.5200 #### [facility] [address] [place], [address] Magnesiumon 01-09-2025 Magnesium [Mass/Vol] 2.1 mg/dL Normal 1.5-2.2 [facility] Comment on above: Performed By: #### L 500.2500, L501.5200 #### [facility] [address] [place], [address] Magnesium measurement (mass/ volume)Ordered By: Melissa Reed on 01-09-2025 Magnesium (Unsp spec) [Mass/Vol] 2.1 mg/dL 1.5-2.2 [facility] Potassium measurement (mass/ volume)Ordered By: Melissa Reed on 01-09-2025 Potassium (Unsp spec) [Mass/Vol] 4.5 mmol/L 3.3-5.1 [facility] Comment on above: Hemolysis present, R esults could be affected. Serum creatinine measurement (mass/volume)Ordered By: Melissa Reed on 01-09-2025 Creatinine [Mass/Vol] 1.08 mg/dL Normal 0.70-1.20 [facility] Comment on above: Performed By: #### L 500.2500, L501.5200 #### [facility] [address] [place], [address] Serum glucose measurement (m ass/volume)Ordered By: Melissa Reed on 01-09-2025 Glucose [Mass/Vol] 78 mg/dL Normal 70-99 [facility] [place] [facility] Comment on above: Performed By: #### L 500.2500, L501.5200 #### [facility] [address] [place], [address] Serum or plasma calcium danae urement (mass/volume)Ordered By: Melissa Reed on 01-09-2025 Calcium [Mass/Vol] 9.0 mg/dL Normal 7.6-11.0 [facility] [place] Comment on above: Performed By: #### L 500.2500, L501.5200 #### [facility] [address] [place], [address] Serum or plasma urea nitroge n measurement (mass/volume)Ordered By: Melissa Reed on 01-09-2025 Urea nitrogen [Mass/Vol] 24 mg/dL High 4-19 [facility] Comment on above: Performed By: #### L 500.2500, L501.5200 #### [facility] [address] [place], [place], [id number] Sodium levelOrdered By: Rubin Reed on 01-09-2025 Sodium [Moles/Vol] 141 mmol/L Normal 133-145 [facility] [place] [facility] Comment on above: Performed By: #### L 500.2500, L501.5200 #### [facility] [address] [place], [place], [id number] Urine Cultureon 12-27-2024 [facility] Copy of report sent to In[facility]inter [id number] 12/26/24 0739 FELICITAS. Urine Culture CALLED X2, RESULTS CALLED TO DIVYA AND LEFT VOICEMAIL MESSAGE WITH SCOTTY MUÑOZ 12/26/24 0815 Dora Platt. Escherichia coli [place] Count 50,000-80,000 MARKER ESBL producing OrganismA MARKER [...] S Tobramycin Islt LAVINIA <=1 S Normal [facility] Comment on above: Performed By: #### L 501.5200, L500.2500 #### [facility] [address] [place], [place], [id number] Anion gap in Serum or Plasma Ordered By: Melissa Reed on 12-26-2024 Anion gap [Moles/Vol] 9 mmol/L 5- [facility] BUN/creatinine ratioOrdered By: Melissa Reed on 12-26-2024 Urea nitrogen/Creatinine [Mass ratio] 24.9 mg/mg High - [facility] Basic Metabolic Profile (BMP )on 12-26-2024 BUN/CRE 24.9 RATIO High - [facility] Comment on above: Order Comment: 157 Performed By: #### L 500.2500, L501.5200 #### [facility] [address] [place], [address] Calcium [Mass/Vol] 8.7 mg/dL Normal 7.6-11.0 [facility] [place] [facility] Comment on above: Order Comment: 157 Performed By: #### L 500.2500, L501.5200 #### [facility] [address] [place], [address] Chloride [Moles/Vol] 103 mmol/L Normal 98-108 [facility] Comment on above: Order Comment: 157 Performed By: #### L 500.2500, L501.5200 #### [facility] [address] [place], [address] CO2 [Moles/Vol] 28.5 mmol/L Normal 21.0-32.0 [facility] Comment on above: Order Comment: 157 Performed By: #### L 500.2500, L501.5200 #### [facility] [address] [place], [address] Creatinine [Mass/Vol] 1.19 mg/dL Normal 0.70-1.20 [facility] Comment on above: Order Comment: 157 Performed By: #### L 500.2500, L501.5200 #### [facility] [address] [place], [address] GAP 9 Normal - [facility] Comment on above: Order Comment: 157 Performed By: #### L 500.2500, L501.5200 #### [facility] [address] [place], [address] GFR/1.73 sq M.predicted among non-blacks MDRD (S/P/Bld) [Vol rate/Area] 46 mL/min/{1.73_m2} Low >60 [facility] Comment on above: Order Comment: 157 Result Comment: mL/m in/1.73m2 CKD-EPI Creatinine Equation (2020) Performed By: #### L 500.2500, L501.5200 #### [facility] [address] [place], [address] Glucose [Mass/Vol] 162 mg/dL High 70-99 [facility] [place] [facility] Comment on above: Order Comment: 157 Performed By: #### L 500.2500, L501.5200 #### [facility] [address] [place], [address] Potassium [Moles/Vol] 4.5 mmol/L Normal 3.3-5.1 [facility] Comment on above: Order Comment: 157 Performed By: #### L 500.2500, L501.5200 #### [facility] [address] [place], [address] Sodium [Moles/Vol] 141 mmol/L Normal 133-145 [facility] [place] [facility] Comment on above: Order Comment: 157 Performed By: #### L 500.2500, L501.5200 #### [facility] [address] [place], [address] Urea nitrogen [Mass/Vol] 30 mg/dL High 4-19 [facility] Comment on above: Order Comment: 157 Performed By: #### L 500.2500, L501.5200 #### [facility] [address] [place], [address] Carbon dioxide, total [Moles /volume] in Central venous bloodOrdered By: Melissa Reed on 12-26-2024 CO2 [Moles/Vol] 28.5 mmol/L 21.0-32.0 [facility] Chloride assayOrdered By: Sd Reed on 12-26-2024 Chloride [Moles/Vol] 103 mmol/L 98-108 [facility] Glomerular filtration rate ( GFR) estimation/1.73 sq m using serum, plasma, or whole bOrdered By: Melissa Reed on 12-26-2024 GFR/1.73 sq M.predicted among non-blacks MDRD (S/P/Bld) [Vol rate/Area] 46 mL/min/{1.73_m2} Low >60 [facility] Comment on above: mL/min/1.73m2 CKD-EP I Creatinine Equation (2020) Magnesiumon 12-26-2024 Magnesium [Mass/Vol] 2.2 mg/dL Normal 1.5-2.2 [facility] Comment on above: Order Comment: 157 Performed By: #### L 500.2500, L501.5200 #### [facility] [address] [place], [address] Magnesium measurement (mass/ volume)Ordered By: Melissa Reed on 12-26-2024 Magnesium (Unsp spec) [Mass/Vol] 2.2 mg/dL 1.5-2.2 [facility] Potassium measurement (mass/ volume)Ordered By: Melissa Reed on 12-26-2024 Potassium (Unsp spec) [Mass/Vol] 4.5 mmol/L 3.3-5.1 [facility] Serum creatinine measurement (mass/volume)Ordered By: Melissa Reed on 12-26-2024 Creatinine [Mass/Vol] 1.19 mg/dL 0.70-1.20 [facility] Serum glucose measurement (m ass/volume)Ordered By: Melissa eRed on 12-26-2024 Glucose [Mass/Vol] 162 mg/dL High 70-99 [facility] [place] [facility] Serum or plasma calcium danae urement (mass/volume)Ordered By: Melissa Reed on 12-26-2024 Calcium [Mass/Vol] 8.7 mg/dL 7.6-11.0 [facility] [place] [facility] Serum or plasma urea nitroge n measurement (mass/volume)Ordered By: Melissa Reed on 12-26-2024 Urea nitrogen [Mass/Vol] 30 mg/dL High 4-19 [facility] Sodium levelOrdered By: Rubin Reed on 12-26-2024 Sodium [Moles/Vol] 141 mmol/L 133-145 [facility] [place] [facility] Bilirubin Test strip Ql (U)O rdered By: Melissa Reed on 12-24-2024 Bilirubin Ql (U) Negative Negative [facility] Ketones Test strip Ql (U)Ord ered By: Melissa Reed on 12-24-2024 Ketones Ql (U) Negative Negative [facility] Microscopic analysis of urin e for red blood cells (RBC)Ordered By: Melissa Reed on 12-24-2024 Microscopic analysis of urine for red blood cells (RBC) 0 SEEN /hpf 0-5 [facility] Mucus LM Ql (Urine sed)Order ed By: Melissa Reed on 12-24-2024 Mucus Ql (Urine sed) 0 SEEN /hpf [facility] Nitrite Test strip Ql (U)Ord ered By: Melissa Reed on 12-24-2024 Nitrite Ql (U) Negative Negative [facility] Protein Test strip Ql (U)Ord ered By: Melissa Reed on 12-24-2024 Protein Ql (U) 15 mg/dl High Negative [facility] Squamous epithelial cells de tection in urine sediment by light microscopyOrdered By: Melissa Reed on 12-24-2024 Epithelial cells.squamous LM Ql (Urine sed) 0-5 SEEN /hpf 5-10 [facility] Urinalysis, Completeon 12-24 BACTERIA RARE Normal None Seen [facility] Comment on above: Order Comment: 157 Performed By: #### L 501.5200, L500.2500 #### [facility] [address] [place], [place], [address] EPI,SQUAMOUS 0-5 SEEN Normal - [facility] Comment on above: Order Comment: 157 Performed By: #### L 501.5200, L500.2500 #### [facility] [address] [place], [address] Mucus Ql (Urine sed) 0 SEEN Normal [facility] Comment on above: Order Comment: 157 Performed By: #### L 501.5200, L500.2500 #### [facility] [address] [place], [address] RBC 0 SEEN Normal 0-5 [facility] Comment on above: Order Comment: 157 Performed By: #### L 501.5200, L500.2500 #### [facility] [address] [place], [address] WBC 0 SEEN Normal 0-5 [facility] Comment on above: Order Comment: 157 Performed By: #### L 501.5200, L500.2500 #### [facility] [address] [place], [address] Urine clarityOrdered By: Lillian Reed on 12-24-2024 Clarity (U) Clear Clear [facility] Urine color determinationOrd ered By: Melissa Reed on 12-24-2024 Color (U) Yellow Yellow [facility] Urine cultureOrdered By: Lillian Reed on 12-24-2024 Bacteria identified Cx Nom (U) Escherichia coli Abnormal [facility] Urine glucose detectionOrder ed By: Melissa Reed on 12-24-2024 Glucose Ql (U) Normal mg/dl Normal [facility] Urine leukocyte esterase det ection by dipstickOrdered By: Melissa Reed on 12-24-2024 Leukocyte esterase Test strip Ql (U) Negative Negative [facility] Urine pHOrdered By: Melissa kerr on 12-24-2024 pH (U) 7.0 [pH] 5.0 - 8.0 [facility] Urine sediment bacteria coun t by microscopy (number/high power field)Ordered By: Melsisa Reed on 12-24-2024 Bacteria LM.HPF (Urine sed) [#/Area] RARE /hpf None Seen [facility] Urine specific gravity measu rementOrdered By: Melissa Reed on 12-24-2024 Specific gravity (U) [Rel density] 1.010 1.002-1.030 [facility] Urine urobilinogen measureme ntOrdered By: Melissa Reed on 12-24-2024 Urobilinogen Ql (U) Normal mg/dl Normal [facility] White blood cell countOrdere d By: Melissa Reed on 12-24-2024 White blood cell count 0 SEEN /hpf 0-5 [facility] Anion gap in Serum or Plasma Ordered By: Melissa Reed on 12-12-2024 Anion gap [Moles/Vol] 9 mmol/L 5-15 [facility] BUN/creatinine ratioOrdered By: Melissa Reed on 12-12-2024 Urea nitrogen/Creatinine [Mass ratio] 28.8 mg/mg High 10-20 [facility] Basic Metabolic Profile (BMP )on 12-12-2024 BUN/CRE 28.8 RATIO High 10-20 [facility] Comment on above: Performed By: #### L 501.5200, L500.2500 #### [facility] [address] [place], [address] Calcium [Mass/Vol] 8.7 mg/dL Normal 7.6-11.0 [facility] [place] [facility] Comment on above: Performed By: #### L 501.5200, L500.2500 #### [facility] [address] [place], [address] Chloride [Moles/Vol] 101 mmol/L Normal 98-108 [facility] Comment on above: Performed By: #### L 501.5200, L500.2500 #### [facility] [address] [place], [address] CO2 [Moles/Vol] 27.9 mmol/L Normal 21.0-32.0 [facility] Comment on above: Performed By: #### L 501.5200, L500.2500 #### [facility] [address] [place], [address] Creatinine [Mass/Vol] 0.98 mg/dL Normal 0.70-1.20 [facility] Comment on above: Performed By: #### L 501.5200, L500.2500 #### [facility] [address] [place], [address] GAP 9 Normal 5-15 [facility] Comment on above: Performed By: #### L 501.5200, L500.2500 #### [facility] [address] [place], [address] GFR/1.73 sq M.predicted among non-blacks MDRD (S/P/Bld) [Vol rate/Area] 58 mL/min/{1.73_m2} Low >60 [facility] Comment on above: Result Comment: mL/m in/1.73m2 CKD-EPI Creatinine Equation (2020) Performed By: #### L 501.5200, L500.2500 #### [facility] [address] [place], [address] Glucose [Mass/Vol] 148 mg/dL High 70-99 [facility] [place] Comment on above: Performed By: #### L 501.5200, L500.2500 #### [facility] [address] [place], [address] Potassium [Moles/Vol] 4.0 mmol/L Normal 3.3-5.1 [facility] Comment on above: Performed By: #### L 501.5200, L500.2500 #### [facility] [address] [place], [address] Sodium [Moles/Vol] 139 mmol/L Normal 133-145 [facility] [place] [facility] Comment on above: Performed By: #### L 501.5200, L500.2500 #### [facility] [address] [place], [address] Urea nitrogen [Mass/Vol] 28 mg/dL High 4-19 [facility] Comment on above: Performed By: #### L 501.5200, L500.2500 #### [facility] [address] [place], [place], [address] Carbon dioxide, total [Moles /volume] in Central venous bloodOrdered By: Melissa Reed on 12-12-2024 CO2 [Moles/Vol] 27.9 mmol/L 21.0-32.0 [facility] Chloride assayOrdered By: Sd Reed on 12-12-2024 Chloride [Moles/Vol] 101 mmol/L 98-108 [facility] Glomerular filtration rate ( GFR) estimation/1.73 sq m using serum, plasma, or whole bOrdered By: Melissa Reed on 12-12-2024 GFR/1.73 sq M.predicted among non-blacks MDRD (S/P/Bld) [Vol rate/Area] 58 mL/min/{1.73_m2} Low >60 [facility] Comment on above: mL/min/1.73m2 CKD-EP I Creatinine Equation (2020) Magnesiumon 12-12-2024 Magnesium [Mass/Vol] 2.2 mg/dL Normal 1.5-2.2 [facility] Comment on above: Performed By: #### L 501.5200, L500.2500 #### [facility] [address] [place], [place], [address] Magnesium measurement (mass/ volume)Ordered By: Melissa Reed on 12-12-2024 Magnesium (Unsp spec) [Mass/Vol] 2.2 mg/dL 1.5-2.2 [facility] Potassium measurement (mass/ volume)Ordered By: Melissa Reed on 12-12-2024 Potassium (Unsp spec) [Mass/Vol] 4.0 mmol/L 3.3-5.1 [facility] Serum creatinine measurement (mass/volume)Ordered By: Melissa Reed on 12-12-2024 Creatinine [Mass/Vol] 0.98 mg/dL 0.70-1.20 [facility] Serum glucose measurement (m ass/volume)Ordered By: Melissa Reed on 12-12-2024 Glucose [Mass/Vol] 148 mg/dL High 70-99 [facility] [place] [facility] Serum or plasma calcium danae urement (mass/volume)Ordered By: Melissa Reed on 12-12-2024 Calcium [Mass/Vol] 8.7 mg/dL 7.6-11.0 [facility] [place] [facility] Serum or plasma urea nitroge n measurement (mass/volume)Ordered By: Melissa Reed on 12-12-2024 Urea nitrogen [Mass/Vol] 28 mg/dL High 4-19 [facility] Sodium levelOrdered By: Rubin Reed on 12-12-2024 Sodium [Moles/Vol] 139 mmol/L 133-145 [facility] [place] [facility] Anion gap in Serum or Plasma Ordered By: Melissa Reed on 11-28-2024 Anion gap [Moles/Vol] 11 mmol/L 5-15 [facility] BUN/creatinine ratioOrdered By: Melissa Reed on 11-28-2024 Urea nitrogen/Creatinine [Mass ratio] 28.8 mg/mg High 10-20 [facility] Basic Metabolic Profile (BMP )on 11-28-2024 BUN/CRE 28.8 RATIO High - [facility] Comment on above: Order Comment: 157 Performed By: #### L 501.5200, L500.2500 #### [facility] [address] [place], [address] Calcium [Mass/Vol] 9.5 mg/dL Normal 7.6-11.0 [facility] [place] [facility] Comment on above: Order Comment: 157 Performed By: #### L 501.5200, L500.2500 #### [facility] [address] [place], [address] Chloride [Moles/Vol] 98 mmol/L Normal 98-108 [facility] Comment on above: Order Comment: 157 Performed By: #### L 501.5200, L500.2500 #### [facility] [address] [place], [address] CO2 [Moles/Vol] 29.5 mmol/L Normal 21.0-32.0 [facility] Comment on above: Order Comment: 157 Performed By: #### L 501.5200, L500.2500 #### [facility] [address] [place], [address] Creatinine [Mass/Vol] 1.21 mg/dL High 0.70-1.20 [facility] Comment on above: Order Comment: 157 Performed By: #### L 501.5200, L500.2500 #### [facility] [address] [place], [address] GAP 11 Normal 5-15 [facility] Comment on above: Order Comment: 157 Performed By: #### L 501.5200, L500.2500 #### [facility] [address] [place], [address] GFR/1.73 sq M.predicted among non-blacks MDRD (S/P/Bld) [Vol rate/Area] 45 mL/min/{1.73_m2} Low >60 [facility] Comment on above: Order Comment: 157 Result Comment: mL/m in/1.73m2 CKD-EPI Creatinine Equation (2020) Performed By: #### L 501.5200, L500.2500 #### [facility] [address] [place], [address] Glucose [Mass/Vol] 126 mg/dL High 70-99 [facility] [place] [facility] Comment on above: Order Comment: 157 Performed By: #### L 501.5200, L500.2500 #### [facility] [address] [place], [address] Potassium [Moles/Vol] 4.2 mmol/L Normal 3.3-5.1 [facility] Comment on above: Order Comment: 157 Performed By: #### L 501.5200, L500.2500 #### [facility] [address] [place], [address] Sodium [Moles/Vol] 139 mmol/L Normal 133-145 [facility] [place] [facility] Comment on above: Order Comment: 157 Performed By: #### L 501.5200, L500.2500 #### [facility] [address] [place], [address] Urea nitrogen [Mass/Vol] 35 mg/dL High 4-19 [facility] Comment on above: Order Comment: 157 Performed By: #### L 501.5200, L500.2500 #### [facility] [address] [place], [address] Carbon dioxide, total [Moles /volume] in Central venous bloodOrdered By: Melissa Reed on 11-28-2024 CO2 [Moles/Vol] 29.5 mmol/L 21.0-32.0 [facility] Chloride assayOrdered By: Sd Reed on 11-28-2024 Chloride [Moles/Vol] 98 mmol/L 98-108 [facility] Glomerular filtration rate ( GFR) estimation/1.73 sq m using serum, plasma, or whole bOrdered By: Melissa Reed on 11-28-2024 GFR/1.73 sq M.predicted among non-blacks MDRD (S/P/Bld) [Vol rate/Area] 45 mL/min/{1.73_m2} Low >60 [facility] Comment on above: mL/min/1.73m2 CKD-EP I Creatinine Equation (2020) Magnesiumon 11-28-2024 Magnesium [Mass/Vol] 2.4 mg/dL High 1.5-2.2 [facility] Comment on above: Order Comment: 157 Performed By: #### L 501.5200, L500.2500 #### [facility] [address] [place], [address] Magnesium measurement (mass/ volume)Ordered By: Melissa Reed on 11-28-2024 Magnesium (Unsp spec) [Mass/Vol] 2.4 mg/dL High 1.5-2.2 [facility] Potassium measurement (mass/ volume)Ordered By: Melissa Reed on 11-28-2024 Potassium (Unsp spec) [Mass/Vol] 4.2 mmol/L 3.3-5.1 [facility] Serum creatinine measurement (mass/volume)Ordered By: Melissa Reed on 11-28-2024 Creatinine [Mass/Vol] 1.21 mg/dL High 0.70-1.20 [facility] Serum glucose measurement (m ass/volume)Ordered By: Melissa Reed on 11-28-2024 Glucose [Mass/Vol] 126 mg/dL High 70-99 [facility] [place] [facility] Serum or plasma calcium danae urement (mass/volume)Ordered By: Melissa Reed on 11-28-2024 Calcium [Mass/Vol] 9.5 mg/dL 7.6-11.0 [facility] [place] [facility] Serum or plasma urea nitroge n measurement (mass/volume)Ordered By: Melissa Reed on 11-28-2024 Urea nitrogen [Mass/Vol] 35 mg/dL High 4-19 [facility] Sodium levelOrdered By: Rubin Reed on 11-28-2024 Sodium [Moles/Vol] 139 mmol/L 133-145 [facility] [place] [facility] Anion gap in Serum or Plasma Ordered By: Melissa Reed on 11-14-2024 Anion gap [Moles/Vol] 9 mmol/L 5-15 [facility] BUN/creatinine ratioOrdered By: Melissa Reed on 11-14-2024 Urea nitrogen/Creatinine [Mass ratio] 21.3 mg/mg High 10- [facility] Basic Metabolic Profile (BMP )on 11-14-2024 BUN/CRE 21.3 RATIO High 04-07 [facility] Comment on above: Performed By: #### L 500.2500, L501.5200 #### [facility] [address] [place], [place], [address] Calcium [Mass/Vol] 8.6 mg/dL Normal 7.6-11.0 [facility] [place] [facility] Comment on above: Performed By: #### L 500.2500, L501.5200 #### [facility] [address] [place], [address] Chloride [Moles/Vol] 101 mmol/L Normal 98-108 [facility] Comment on above: Performed By: #### L 500.2500, L501.5200 #### [facility] [address] [place], [address] CO2 [Moles/Vol] 29.7 mmol/L Normal 21.0-32.0 [facility] Comment on above: Performed By: #### L 500.2500, L501.5200 #### [facility] [address] [place], [address] Creatinine [Mass/Vol] 1.04 mg/dL Normal 0.70-1.20 [facility] Comment on above: Performed By: #### L 500.2500, L501.5200 #### [facility] [address] [place], [address] GAP 9 Normal 5-15 [facility] Comment on above: Performed By: #### L 500.2500, L501.5200 #### [facility] [address] [place], [address] GFR/1.73 sq M.predicted among non-blacks MDRD (S/P/Bld) [Vol rate/Area] 54 mL/min/{1.73_m2} Low >60 [facility] Comment on above: Result Comment: mL/m in/1.73m2 CKD-EPI Creatinine Equation (2020) Performed By: #### L 500.2500, L501.5200 #### [facility] [address] [place], [address] Glucose [Mass/Vol] 179 mg/dL High 70-99 [facility] [place] [facility] Comment on above: Performed By: #### L 500.2500, L501.5200 #### [facility] [address] [place], [address] Potassium [Moles/Vol] 4.1 mmol/L Normal 3.3-5.1 [facility] Comment on above: Performed By: #### L 500.2500, L501.5200 #### [facility] [address] [place], [address] Sodium [Moles/Vol] 140 mmol/L Normal 133-145 [facility] [place] [facility] Comment on above: Performed By: #### L 500.2500, L501.5200 #### [facility] [address] [place], [address] Urea nitrogen [Mass/Vol] 22 mg/dL High 4-19 [facility] Comment on above: Performed By: #### L 500.2500, L501.5200 #### [facility] [address] [place], [address] Carbon dioxide, total [Moles /volume] in Central venous bloodOrdered By: Melissa Reed on 11-14-2024 CO2 [Moles/Vol] 29.7 mmol/L 21.0-32.0 [facility] Chloride assayOrdered By: Sd Reed on 11-14-2024 Chloride [Moles/Vol] 101 mmol/L 98-108 [facility] Glomerular filtration rate ( GFR) estimation/1.73 sq m using serum, plasma, or whole bOrdered By: Melissa Reed on 11-14-2024 GFR/1.73 sq M.predicted among non-blacks MDRD (S/P/Bld) [Vol rate/Area] 54 mL/min/{1.73_m2} Low >60 [facility] Comment on above: mL/min/1.73m2 CKD-EP I Creatinine Equation (2020) Magnesiumon 11-14-2024 Magnesium [Mass/Vol] 2.1 mg/dL Normal 1.5-2.2 [facility] Comment on above: Performed By: #### L 500.2500, L501.5200 #### [facility] [address] [place], [address] Magnesium measurement (mass/ volume)Ordered By: Melissa Reed on 11-14-2024 Magnesium (Unsp spec) [Mass/Vol] 2.1 mg/dL 1.5-2.2 [facility] Potassium measurement (mass/ volume)Ordered By: Melissa Reed on 11-14-2024 Potassium (Unsp spec) [Mass/Vol] 4.1 mmol/L 3.3-5.1 [facility] Serum creatinine measurement (mass/volume)Ordered By: Melissa Reed on 11-14-2024 Creatinine [Mass/Vol] 1.04 mg/dL 0.70-1.20 [facility] Serum glucose measurement (m ass/volume)Ordered By: Melissabridgette Reed on 11-14-2024 Glucose [Mass/Vol] 179 mg/dL High 70-99 [facility] [place] [facility] Serum or plasma calcium danae urement (mass/volume)Ordered By: Melissa Reed on 11-14-2024 Calcium [Mass/Vol] 8.6 mg/dL 7.6-11.0 [facility] [place] [facility] Serum or plasma urea nitroge n measurement (mass/volume)Ordered By: Melissa Reed on 11-14-2024 Urea nitrogen [Mass/Vol] 22 mg/dL High 4-19 [facility] Sodium levelOrdered By: Rubin Reed on 11-14-2024 Sodium [Moles/Vol] 140 mmol/L 133-145 [facility] [place] [facility] Anion gap in Serum or Plasma Ordered By: Melissa Reed on 11-08-2024 Anion gap [Moles/Vol] 10 mmol/L 5-15 [facility] BUN/creatinine ratioOrdered By: Melissa Reed on 11-08-2024 Urea nitrogen/Creatinine [Mass ratio] 24.4 mg/mg High 10- [facility] Basic Metabolic Profile (BMP )on 11-08-2024 BUN/CRE 24.4 RATIO High - [facility] Comment on above: Order Comment: 157 Performed By: #### L 501.2670, L500.2500 #### [facility] [address] [place], [address] Calcium [Mass/Vol] 8.8 mg/dL Normal 7.6-11.0 [facility] [place] [facility] Comment on above: Order Comment: 157 Performed By: #### L 501.5200, L500.2500 #### [facility] [address] [place], [address] Chloride [Moles/Vol] 101 mmol/L Normal 98-108 [facility] Comment on above: Order Comment: 157 Performed By: #### L 501.5200, L500.2500 #### [facility] [address] [place], [address] CO2 [Moles/Vol] 28.3 mmol/L Normal 21.0-32.0 [facility] Comment on above: Order Comment: 157 Performed By: #### L 501.5200, L500.2500 #### [facility] [address] [place], [address] Creatinine [Mass/Vol] 1.08 mg/dL Normal 0.70-1.20 [facility] Comment on above: Order Comment: 157 Performed By: #### L 501.5200, L500.2500 #### [facility] [address] [place], [address] GAP 10 Normal 5-15 [facility] Comment on above: Order Comment: 157 Performed By: #### L 501.5200, L500.2500 #### [facility] [address] [place], [address] GFR/1.73 sq M.predicted among non-blacks MDRD (S/P/Bld) [Vol rate/Area] 52 mL/min/{1.73_m2} Low >60 [facility] Comment on above: Order Comment: 157 Result Comment: mL/m in/1.73m2 CKD-EPI Creatinine Equation (2020) Performed By: #### L 501.5200, L500.2500 #### [facility] [address] [place], [address] Glucose [Mass/Vol] 104 mg/dL High 70-99 [facility] [place] [facility] Comment on above: Order Comment: 157 Performed By: #### L 501.5200, L500.2500 #### [facility] [address] [place], [address] Potassium [Moles/Vol] 3.6 mmol/L Normal 3.3-5.1 [facility] Comment on above: Order Comment: 157 Performed By: #### L 501.5200, L500.2500 #### [facility] [address] [place], [address] Sodium [Moles/Vol] 138 mmol/L Normal 133-145 [facility] [place] [facility] Comment on above: Order Comment: 157 Performed By: #### L 501.5200, L500.2500 #### [facility] [address] [place], [address] Urea nitrogen [Mass/Vol] 26 mg/dL High 4-19 [facility] Comment on above: Order Comment: 157 Performed By: #### L 501.5200, L500.2500 #### [facility] [address] [place], [address] Bilirubin directOrdered By: Melissa Reed on 11-08-2024 Bilirubin.direct [Mass/Vol] 0.22 mg/dL 0.00-0.30 [facility] Bilirubin, totalOrdered By: Melissa Reed on 11-08-2024 Bilirubin [Mass/Vol] 0.46 mg/dL 0.00-1.30 [facility] CBC-Complete Blood Cnt No Di ffon 11-08-2024 Erythrocyte distribution width (RBC) [Ratio] 12.8 % Normal 11.6-14.6 [facility] Comment on above: Order Comment: 157 Performed By: #### L 501.5200, L500.2500 #### [facility] [address] [place], [address] Hematocrit (Bld) [Volume fraction] 36.6 % Low 37-47 [facility] Comment on above: Order Comment: 157 Performed By: #### L 501.5200, L500.2500 #### [facility] [address] [place], [address] Hemoglobin (Bld) [Mass/Vol] 11.6 g/dL Low 12.0-15.0 [facility] Comment on above: Order Comment: 157 Performed By: #### L 501.5200, L500.2500 #### [facility] [address] [place], [address] MCH (RBC) [Entitic mass] 30.9 pg Normal 27.0-32.0 [facility] Comment on above: Order Comment: 157 Performed By: #### L 501.5200, L500.2500 #### [facility] [address] [place], [address] MCHC (RBC) [Mass/Vol] 31.7 g/dL Low 32-36 [facility] Comment on above: Order Comment: 157 Performed By: #### L 501.5200, L500.2500 #### [facility] [address] [place], [address] MCV (RBC) [Entitic vol] 97.6 fL Normal 81-99 [facility] Comment on above: Order Comment: 157 Performed By: #### L 501.5200, L500.2500 #### [facility] [address] [place], [address] Platelet mean volume (Bld) [Entitic vol] 10.2 fL Normal 6.2-12.0 [facility] Comment on above: Order Comment: 157 Performed By: #### L 501.5200, L500.2500 #### [facility] [address] [place], [address] Platelets (Bld) [#/Vol] 228 10*3/uL Normal 150-450 [facility] Comment on above: Order Comment: 157 Performed By: #### L 501.5200, L500.2500 #### [facility] [address] [place], [address] RBC (Bld) [#/Vol] 3.75 10*6/uL Low 4.2-5.4 [facility] Comment on above: Order Comment: 157 Performed By: #### L 501.5200, L500.2500 #### [facility] [address] [place], [address] RDW SD 46.0 fl High 35.1-43.9 [facility] Comment on above: Order Comment: 157 Performed By: #### L 501.5200, L500.2500 #### [facility] [address] [place], [address] WBC (Bld) [#/Vol] 8.4 10*3/uL Normal 4.4-11.0 [facility] [place] [facility] Comment on above: Order Comment: 157 Performed By: #### L 501.5200, L500.2500 #### [facility] [address] [place], [address] Carbon dioxide, total [Moles /volume] in Central venous bloodOrdered By: Melissa Reed on 11-08-2024 CO2 [Moles/Vol] 28.3 mmol/L 21.0-32.0 [facility] Chloride assayOrdered By: Sd Reed on 11-08-2024 Chloride [Moles/Vol] 101 mmol/L 98-108 [facility] Erythrocyte distribution wid th ratioOrdered By: Melissa Reed on 11-08-2024 Erythrocyte distribution width (RBC) [Ratio] 12.8 % 11.6-14.6 [facility] Erythrocyte distribution wid th standard deviationOrdered By: Melissa Reed on 11-08-2024 Erythrocyte distribution width (RBC) [Ratio] 46.0 fl High 35.1-43.9 [facility] Glomerular filtration rate ( GFR) estimation/1.73 sq m using serum, plasma, or whole bOrdered By: Melissa Reed on 11-08-2024 GFR/1.73 sq M.predicted among non-blacks MDRD (S/P/Bld) [Vol rate/Area] 52 mL/min/{1.73_m2} Low >60 [facility] Comment on above: mL/min/1.73m2 CKD-EP I Creatinine Equation (2020) Hematocrit Auto (Bld) [Volum e fraction]Ordered By: Melissa Reed on 11-08-2024 Hematocrit (Bld) [Volume fraction] 36.6 % Low 37-47 [facility] Hemoglobin measurementOrdere d By: Melissa Reed on 11-08-2024 Hemoglobin (Bld) [Mass/Vol] 11.6 g/dL Low 12.0-15.0 [facility] - Chemistry and C hemistry - challengeOrdered By: Melissa Reed on 11-08-2024 AST [Catalytic activity/Vol] 81 U/L High <32 [facility] Liver Profileon 11-08-2024 Albumin [Mass/Vol] 3.3 g/dL Low 3.4-4.8 [facility] [place] [facility] Comment on above: Order Comment: 157 Performed By: #### L 501.5200, L500.2500 #### [facility] [address] [place], [address] ALK PHOS 110 U/L High 35-104 [facility] Comment on above: Order Comment: 157 Performed By: #### L 501.5200, L500.2500 #### [facility] [address] [place], [address] ALT [Catalytic activity/Vol] 87 U/L High <=34 [facility] Comment on above: Order Comment: 157 Performed By: #### L 501.5200, L500.2500 #### [facility] [address] [place], [address] AST [Catalytic activity/Vol] 81 U/L High <=31 [facility] Comment on above: Order Comment: 157 Performed By: #### L 501.5200, L500.2500 #### [facility] [address] [place], [address] Bilirubin [Mass/Vol] 0.46 mg/dL Normal 0.00-1.30 [facility] Comment on above: Order Comment: 157 Performed By: #### L 501.5200, L500.2500 #### [facility] [address] [place], [address] Bilirubin.direct [Mass/Vol] 0.22 mg/dL Normal 0.00-0.30 [facility] Comment on above: Order Comment: 157 Performed By: #### L 501.5200, L500.2500 #### [facility] [address] [place], [address] Globulin (S) [Mass/Vol] 2.9 g/dL Normal 2.2-4.2 [facility] Comment on above: Order Comment: 157 Performed By: #### L 501.5200, L500.2500 #### [facility] [address] [place], [address] T PROT 6.3 g/dL Normal 5.9-8.4 [facility] Comment on above: Order Comment: 157 Performed By: #### L 501.5200, L500.2500 #### [facility] [address] [place], [address] MCV (mean corpuscular volume ) determinationOrdered By: Melissa Reed on 11-08-2024 MCV (RBC) [Entitic vol] 97.6 fL 81-99 [facility] Magnesiumon 11-08-2024 Magnesium [Mass/Vol] 1.8 mg/dL Normal 1.5-2.2 [facility] Comment on above: Order Comment: 157 Performed By: #### L 501.5200, L500.2500 #### [facility] [place], [address] Magnesium measurement (mass/ volume)Ordered By: Melissa Reed on 11-08-2024 Magnesium (Unsp spec) [Mass/Vol] 1.8 mg/dL 1.5-2.2 [facility] Mean corpuscular hemoglobin (MCH) determinationOrdered By: Melissa Reed on 11-08-2024 MCH (RBC) [Entitic mass] 30.9 pg 27.0-32.0 [facility] Mean corpuscular hemoglobin concentration (MCHC) determinationOrdered By: Melissa Reed on 11-08-2024 MCHC (RBC) [Mass/Vol] 31.7 g/dL Low 32-36 [facility] Mean platelet volume determi nationOrdered By: Melissa Reed on 11-08-2024 Platelet mean volume (Bld) [Entitic vol] 10.2 fL 6.2-12.0 [facility] Platelet countOrdered By: Sd Reed on 11-08-2024 Platelets (Bld) [#/Vol] 228 10*3/uL 150-450 [facility] Potassium measurement (mass/ volume)Ordered By: Melissa Reed on 11-08-2024 Potassium (Unsp spec) [Mass/Vol] 3.6 mmol/L 3.3-5.1 [facility] RBC Auto (Bld) [#/Vol]Ordere d By: Melissa Reed on 11-08-2024 RBC (Bld) [#/Vol] 3.75 10*6/uL Low 4.2-5.4 [facility] Serum creatinine measurement (mass/volume)Ordered By: Melissa Reed on 11-08-2024 Creatinine [Mass/Vol] 1.08 mg/dL 0.70-1.20 [facility] Serum globulin measurementOr dered By: Melissa Reed on 11-08-2024 Globulin (S) [Mass/Vol] 2.9 g/dL 2.2-4.2 [facility] Serum glucose measurement (m ass/volume)Ordered By: Melissa Reed on 11-08-2024 Glucose [Mass/Vol] 104 mg/dL High 70-99 [facility] [place] [facility] Serum or plasma alanine bro otransferase (ALT) measurementOrdered By: Melissa Reed on 11-08-2024 ALT [Catalytic activity/Vol] 87 U/L High <35 [facility] Serum or plasma albumin danae urement (mass/volume)Ordered By: Melissa Reed on 11-08-2024 Albumin [Mass/Vol] 3.3 g/dL Low 3.4-4.8 [facility] [place] [facility] Serum or plasma alkaline moustapha sphatase measurementOrdered By: Melissa Reed on 11-08-2024 ALP [Catalytic activity/Vol] 110 U/L High 35-104 [facility] Serum or plasma calcium danae urement (mass/volume)Ordered By: Melissa Reed on 11-08-2024 Calcium [Mass/Vol] 8.8 mg/dL 7.6-11.0 [facility] [place] [facility] Serum or plasma urea nitroge n measurement (mass/volume)Ordered By: Melissa Reed on 11-08-2024 Urea nitrogen [Mass/Vol] 26 mg/dL High 4-19 [facility] Sodium levelOrdered By: Rubin Reed on 11-08-2024 Sodium [Moles/Vol] 138 mmol/L 133-145 [facility] [place] [facility] Total proteinOrdered By: Lillian Reed on 11-08-2024 Protein [Mass/Vol] 6.3 g/dL 5.9-8.4 [facility] [place] [facility] White blood cell (WBC) count Ordered By: Melissa Reed on 11-08-2024 WBC (Bld) [#/Vol] 8.4 10*3/uL 4.4-11.0 [facility] [place] [facility] Anion gap in Serum or Plasma Ordered By: Melissa Reed on 10-17-2024 Anion gap [Moles/Vol] 9 mmol/L 5-15 [facility] BUN/creatinine ratioOrdered By: Melissa Reed on 10-17-2024 Urea nitrogen/Creatinine [Mass ratio] 28.5 mg/mg High 10-20 [facility] Basic Metabolic Profile (BMP )on 10-17-2024 BUN/CRE 28.5 RATIO High 10-20 [facility] Comment on above: Order Comment: 157 Performed By: #### L 501.5200, L500.2500 #### [facility] [address] [place], [address] Calcium [Mass/Vol] 8.7 mg/dL Normal 7.6-11.0 [facility] [place] [facility] Comment on above: Order Comment: 157 Performed By: #### L 501.5200, L500.2500 #### [facility] [address] [place], [address] Chloride [Moles/Vol] 103 mmol/L Normal 98-108 [facility] Comment on above: Order Comment: 157 Performed By: #### L 501.5200, L500.2500 #### [facility] [address] [place], [address] CO2 [Moles/Vol] 28.9 mmol/L Normal 21.0-32.0 [facility] Comment on above: Order Comment: 157 Performed By: #### L 501.5200, L500.2500 #### [facility] [address] [place], [address] Creatinine [Mass/Vol] 1.04 mg/dL Normal 0.70-1.20 [facility] Comment on above: Order Comment: 157 Performed By: #### L 501.5200, L500.2500 #### [facility] [address] [place], [address] GAP 9 Normal 5-15 [facility] Comment on above: Order Comment: 157 Performed By: #### L 501.5200, L500.2500 #### [facility] [address] [place], [address] GFR/1.73 sq M.predicted among non-blacks MDRD (S/P/Bld) [Vol rate/Area] 54 mL/min/{1.73_m2} Low >60 [facility] Comment on above: Order Comment: 157 Result Comment: mL/m in/1.73m2 CKD-EPI Creatinine Equation (2020) Performed By: #### L 501.5200, L500.2500 #### [facility] [address] [place], [address] Glucose [Mass/Vol] 106 mg/dL High 70-99 [facility] [place] [facility] Comment on above: Order Comment: 157 Performed By: #### L 501.5200, L500.2500 #### [facility] [address] [place], [address] Potassium [Moles/Vol] 3.8 mmol/L Normal 3.3-5.1 [facility] Comment on above: Order Comment: 157 Performed By: #### L 501.5200, L500.2500 #### [facility] [address] [place], [address] Sodium [Moles/Vol] 140 mmol/L Normal 133-145 [facility] [place] [facility] Comment on above: Order Comment: 157 Performed By: #### L 501.5200, L500.2500 #### [facility] [address] [place], [address] Urea nitrogen [Mass/Vol] 30 mg/dL High 4-19 [facility] Comment on above: Order Comment: 157 Performed By: #### L 501.5200, L500.2500 #### [facility] [address] [place], [address] Carbon dioxide, total [Moles /volume] in Central venous bloodOrdered By: Melissa Reed on 10-17-2024 CO2 [Moles/Vol] 28.9 mmol/L 21.0-32.0 [facility] Chloride assayOrdered By: Sd Reed on 10-17-2024 Chloride [Moles/Vol] 103 mmol/L 98-108 [facility] Glomerular filtration rate ( GFR) estimation/1.73 sq m using serum, plasma, or whole bOrdered By: Melissa Reed on 10-17-2024 GFR/1.73 sq M.predicted among non-blacks MDRD (S/P/Bld) [Vol rate/Area] 54 mL/min/{1.73_m2} Low >60 [facility] Comment on above: mL/min/1.73m2 CKD-EP I Creatinine Equation (2020) Magnesiumon 10-17-2024 Magnesium [Mass/Vol] 2.3 mg/dL High 1.5-2.2 [facility] Comment on above: Order Comment: 157 Performed By: #### L 501.5200, L500.2500 #### [facility] [address] [place], [address] Magnesium measurement (mass/ volume)Ordered By: Melissa Reed on 10-17-2024 Magnesium (Unsp spec) [Mass/Vol] 2.3 mg/dL High 1.5-2.2 [facility] Potassium measurement (mass/ volume)Ordered By: Melissa Reed on 10-17-2024 Potassium (Unsp spec) [Mass/Vol] 3.8 mmol/L 3.3-5.1 [facility] Serum creatinine measurement (mass/volume)Ordered By: Melissa Reed on 10-17-2024 Creatinine [Mass/Vol] 1.04 mg/dL 0.70-1.20 [facility] Serum glucose measurement (m ass/volume)Ordered By: Melissa Reed on 10-17-2024 Glucose [Mass/Vol] 106 mg/dL High 70-99 [facility] [place] [facility] Serum or plasma calcium danae urement (mass/volume)Ordered By: Melissa Reed on 10-17-2024 Calcium [Mass/Vol] 8.7 mg/dL 7.6-11.0 [facility] [place] [facility] Serum or plasma urea nitroge n measurement (mass/volume)Ordered By: Melissa Reed on 10-17-2024 Urea nitrogen [Mass/Vol] 30 mg/dL High 4-19 [facility] Sodium levelOrdered By: Rubin Reed on 10-17-2024 Sodium [Moles/Vol] 140 mmol/L 133-145 [facility] [place] [facility] Anion gap in Serum or Plasma Ordered By: Melissa Reed on 10-03-2024 Anion gap [Moles/Vol] 10 mmol/L 5-15 [facility] BUN/creatinine ratioOrdered By: Melissa Reed on 10-03-2024 Urea nitrogen/Creatinine [Mass ratio] 24.4 mg/mg High 10-20 [facility] Basic Metabolic Profile (BMP )on 10-03-2024 BUN/CRE 24.4 RATIO High - [facility] Comment on above: Order Comment: 157 Performed By: #### L 501.5200, L500.2500 #### [facility] [address] [place], [address] Calcium [Mass/Vol] 8.7 mg/dL Normal 7.6-11.0 [facility] [place] [facility] Comment on above: Order Comment: 157 Performed By: #### L 501.5200, L500.2500 #### [facility] [address] [place], [address] Chloride [Moles/Vol] 102 mmol/L Normal 98-108 [facility] Comment on above: Order Comment: 157 Performed By: #### L 501.5200, L500.2500 #### [facility] [address] [place], [address] CO2 [Moles/Vol] 27.9 mmol/L Normal 21.0-32.0 [facility] Comment on above: Order Comment: 157 Performed By: #### L 501.5200, L500.2500 #### [facility] [address] [place], [address] Creatinine [Mass/Vol] 1.08 mg/dL Normal 0.70-1.20 [facility] Comment on above: Order Comment: 157 Performed By: #### L 501.5200, L500.2500 #### [facility] [address] [place], [address] GAP 10 Normal 5-15 [facility] Comment on above: Order Comment: 157 Performed By: #### L 501.5200, L500.2500 #### [facility] [address] [place], [address] GFR/1.73 sq M.predicted among non-blacks MDRD (S/P/Bld) [Vol rate/Area] 52 mL/min/{1.73_m2} Low >60 [facility] Comment on above: Order Comment: 157 Result Comment: mL/m in/1.73m2 CKD-EPI Creatinine Equation (2020) Performed By: #### L 501.5200, L500.2500 #### [facility] [address] [place], [address] Glucose [Mass/Vol] 179 mg/dL High 70-99 [facility] [place] [facility] Comment on above: Order Comment: 157 Performed By: #### L 501.5200, L500.2500 #### [facility] [address] [place], [address] Potassium [Moles/Vol] 3.8 mmol/L Normal 3.3-5.1 [facility] Comment on above: Order Comment: 157 Performed By: #### L 501.5200, L500.2500 #### [facility] [address] [place], [address] Sodium [Moles/Vol] 139 mmol/L Normal 133-145 [facility] Comment on above: Order Comment: 157 Performed By: #### L 501.5200, L500.2500 #### [facility] [address] [place], [address] Urea nitrogen [Mass/Vol] 26 mg/dL High 4-19 [facility] Comment on above: Order Comment: 157 Performed By: #### L 501.5200, L500.2500 #### [facility] [address] [place], [place], [id number] Carbon dioxide, total [Moles /volume] in Central venous bloodOrdered By: Melissa Reed on 10-03-2024 CO2 [Moles/Vol] 27.9 mmol/L 21.0-32.0 [facility] Chloride assayOrdered By: Sd Reed on 10-03-2024 Chloride [Moles/Vol] 102 mmol/L 98-108 [facility] GFR/1.73 sq M.predicted denise g non-blacks MDRD (S/P/Bld) [Vol rate/Area]Ordered By: Melissa Reed on 10-03-2024 Estimated GFR (MDRD) Non-Af Amer 52 Low >60 [facility] Comment on above: mL/min/1.73m2 CKD-EP I Creatinine Equation (2020) Glomerular filtration rate ( GFR) estimation/1.73 sq m using serum, plasma, or whole bOrdered By: Melissa Reed on 10-03-2024 GFR/1.73 sq M.predicted among non-blacks MDRD (S/P/Bld) [Vol rate/Area] 52 mL/min/{1.73_m2} Low >60 [facility] Comment on above: mL/min/1.73m2 CKD-EP I Creatinine Equation (2020) Hemoglobin A1con 10-03-2024 HbA1c (Bld) [Mass fraction] 5.9 % High <=5.6 [facility] Comment on above: Order Comment: 157 Result Comment: Norm al < 5.7 % Prediabetic 5.7 - 6.4 % Diabetic >or= 6.5 % Please note range changes. Performed By: #### L 501.5200, L500.2500 #### [facility] [address] [place], [address] Hemoglobin A1c percentageOrd ered By: Melissa Reed on 10-03-2024 HbA1c (Bld) [Mass fraction] 5.9 % High <5.7 [facility] Comment on above: Normal < 5.7 % Predi abetic 5.7 - 6.4 % Diabetic >or= 6.5 % Please note range changes. Magnesiumon 10-03-2024 Magnesium [Mass/Vol] 2.2 mg/dL Normal 1.5-2.2 [facility] Comment on above: Order Comment: 157 Performed By: #### L 501.5200, L500.2500 #### [facility] [place], [address] Magnesium (Unsp spec) [Mass/ Vol]Ordered By: Melissa Reed on 10-03-2024 Magnesium [Mass/Vol] 2.2 mg/dL 1.5-2.2 [facility] Magnesium measurement (mass/ volume)Ordered By: Melissa Reed on 10-03-2024 Magnesium (Unsp spec) [Mass/Vol] 2.2 mg/dL 1.5-2.2 [facility] Potassium (Unsp spec) [Mass/ Vol]Ordered By: Melissa Reed on 10-03-2024 Potassium [Moles/Vol] 3.8 mmol/L 3.3-5.1 [facility] Potassium measurement (mass/ volume)Ordered By: Melissa Reed on 10-03-2024 Potassium (Unsp spec) [Mass/Vol] 3.8 mmol/L 3.3-5.1 [facility] Serum creatinine measurement (mass/volume)Ordered By: Melissa Reed on 10-03-2024 Creatinine [Mass/Vol] 1.08 mg/dL 0.70-1.20 [facility] Serum glucose measurement (m ass/volume)Ordered By: Melissa Reed on 10-03-2024 Glucose [Mass/Vol] 179 mg/dL High 70-99 [facility] [place] [facility] Serum or plasma calcium danae urement (mass/volume)Ordered By: Melissa Reed on 10-03-2024 Calcium [Mass/Vol] 8.7 mg/dL 7.6-11.0 [facility] [place] [facility] Serum or plasma urea nitroge n measurement (mass/volume)Ordered By: Melissa Reed on 10-03-2024 Urea nitrogen [Mass/Vol] 26 mg/dL High 4-19 [facility] Sodium levelOrdered By: Rubin Reed on 10-03-2024 Sodium [Moles/Vol] 139 mmol/L 133-145 [facility] [place] [facility] Urine Cultureon 09-26-2024 [facility] Results called on 09/26/24-1126 by MARYLOU to [facility] (RIZWAN) . Copy of report sent to [facility] [id number] 09/25/24 1616 ASNIPES. ESBL Escherichia coli [place] Count 25,000-50,000 MARKER ESBL producing OrganismA MARKER [...] S Tobramycin Islt LAVINIA <=1 S Normal [facility] Comment on above: Performed By: #### M 100.2200, L400.0001 #### [facility] [address] [place], [place], [id number] Bacteria LM.HPF (Urine sed) [#/Area]Ordered By: Melissa Reed on 09-23-2024 Urine Bacteria RARE /hpf None Seen [facility] Bilirubin Test strip Ql (U)O rdered By: Melissa Reed on 09-23-2024 Bilirubin Ql (U) Negative Negative [facility] Epithelial cells.squamous LM Ql (Urine sed)Ordered By: Melissa Reed on 09-23-2024 Epithelial cells.squamous LM.HPF (Urine sed) [#/Area] 0 /[HPF] 5-10 [facility] Glucose Ql (U)Ordered By: Sd Reed on 09-23-2024 Urine Glucose (UA) Normal mg/dl Normal [facility] Ketones Test strip Ql (U)Ord ered By: Melissa Reed on 09-23-2024 Ketones Ql (U) Negative Negative [facility] Microscopic analysis of urin e for red blood cells (RBC)Ordered By: Melissa Reed on 09-23-2024 Microscopic analysis of urine for red blood cells (RBC) 0 SEEN /hpf 0-5 [facility] Urine RBC 0 SEEN /hpf 0-5 [facility] Mucus LM Ql (Urine sed)Order ed By: Melissa Reed on 09-23-2024 Mucus Ql (Urine sed) 0 SEEN /hpf [facility] Nitrite Test strip Ql (U)Ord ered By: Melissa Reed on 09-23-2024 Nitrite Ql (U) Negative Negative [facility] Protein Test strip Ql (U)Ord ered By: Melissa Reed on 09-23-2024 Protein Ql (U) 30 mg/dl High Negative [facility] Squamous epithelial cells de tection in urine sediment by light microscopyOrdered By: Melissa Reed on 09-23-2024 Epithelial cells.squamous LM Ql (Urine sed) 0-5 SEEN /hpf 5-10 [facility] Urinalysis, Completeon 09-23 BACTERIA RARE Normal None Seen [facility] Comment on above: Order Comment: 157 Performed By: #### L 501.5200, L500.2500 #### [facility] [address] [place], [address] EPI,SQUAMOUS 0-5 SEEN Normal 5-10 [facility] Comment on above: Order Comment: 157 Performed By: #### L 501.5200, L500.2500 #### [facility] [address] [place], [address] WBC 50-100 SEEN Normal 0-5 [facility] Comment on above: Order Comment: 157 Performed By: #### L 501.5200, L500.2500 #### [facility] [address] [place], [address] Mucus Ql (Urine sed) 0 SEEN Normal [facility] Comment on above: Order Comment: 157 Performed By: #### L 501.5200, L500.2500 #### [facility] [address] [place], [place], [id number] RBC 0 SEEN Normal 0-5 [facility] Comment on above: Order Comment: 157 Performed By: #### L 501.5200, L500.2500 #### [facility] [address] [place], [place], [id number] Urine blood detectionOrdered By: Melissa Reed on 09-23-2024 Urine Occult Blood 25 /ul High Negative [facility] [place] [facility] Urine clarityOrdered By: Lillian Reed on 09-23-2024 Clarity (U) Sl. Cloudy Clear [facility] Urine color determinationOrd ered By: Melissa Reed on 09-23-2024 Color (U) Yellow Yellow [facility] Urine cultureOrdered By: Lillian Reed on 09-23-2024 Bacteria identified Cx Nom (U) ESBL Escherichia coli Abnormal [facility] Urine glucose detectionOrder ed By: Melissa Reed on 09-23-2024 Glucose Ql (U) Normal mg/dl Normal [facility] Urine leukocyte esterase det ection by dipstickOrdered By: Melissa Reed on 09-23-2024 Leukocyte esterase Test strip Ql (U) 500 /ul High Negative [facility] Urine pHOrdered By: Melissa kerr on 09-23-2024 pH (U) 6.0 [pH] 5.0 - 8.0 [facility] Urine sediment bacteria coun t by microscopy (number/high power field)Ordered By: Melissa Reed on 09-23-2024 Bacteria LM.HPF (Urine sed) [#/Area] RARE /hpf None Seen [facility] Urine specific gravity measu rementOrdered By: Melissa Reed on 09-23-2024 Specific gravity (U) [Rel density] 1.015 1.002-1.030 [facility] Urine urobilinogen measureme ntOrdered By: Melissa Reed on 04-07-2025 Urobilinogen Ql (U) Normal mg/dl Normal [facility] Urobilinogen Ql (U)Ordered B y: Melissa Reed on 09-23-2024 Urine Urobilinogen Normal mg/dl Normal [facility] White blood cell countOrdere d By: Melissa Reed on 09-23-2024 Urine WBC 50-100 SEEN /hpf 0-5 [facility] White blood cell count 50-100 SEEN /hpf 0-5 [facility] Anion gap in Serum or Plasma Ordered By: Melissa Reed on 09-19-2024 Anion gap [Moles/Vol] 9 mmol/L 5-15 [facility] BUN/creatinine ratioOrdered By: Melissa Reed on 09-19-2024 Urea nitrogen/Creatinine [Mass ratio] 30.0 mg/mg High 10- [facility] Basic Metabolic Profile (BMP )on 09-19-2024 BUN/CRE 30.0 RATIO High - [facility] Comment on above: Order Comment: 157 Performed By: #### L 501.5200, L500.2500 #### [facility] [address] [place], [address] Calcium [Mass/Vol] 8.6 mg/dL Normal 7.6-11.0 [facility] [place] [facility] Comment on above: Order Comment: 157 Performed By: #### L 501.5200, L500.2500 #### [facility] [address] [place], [address] Chloride [Moles/Vol] 103 mmol/L Normal 98-108 [facility] Comment on above: Order Comment: 157 Performed By: #### L 501.5200, L500.2500 #### [facility] [address] [place], [address] CO2 [Moles/Vol] 27.2 mmol/L Normal 21.0-32.0 [facility] Comment on above: Order Comment: 157 Performed By: #### L 501.5200, L500.2500 #### [facility] [address] [place], [address] Creatinine [Mass/Vol] 1.13 mg/dL Normal 0.70-1.20 [facility] Comment on above: Order Comment: 157 Performed By: #### L 501.5200, L500.2500 #### [facility] [address] [place], [address] GAP 9 Normal 5-15 [facility] Comment on above: Order Comment: 157 Performed By: #### L 501.5200, L500.2500 #### [facility] [address] [place], [address] GFR/1.73 sq M.predicted among non-blacks MDRD (S/P/Bld) [Vol rate/Area] 49 mL/min/{1.73_m2} Low >60 [facility] Comment on above: Order Comment: 157 Result Comment: mL/m in/1.73m2 CKD-EPI Creatinine Equation (2020) Performed By: #### L 501.5200, L500.2500 #### [facility] [address] [place], [address] Glucose [Mass/Vol] 165 mg/dL High 70-99 [facility] [place] [facility] Comment on above: Order Comment: 157 Performed By: #### L 501.5200, L500.2500 #### [facility] [address] [place], [address] Potassium [Moles/Vol] 4.0 mmol/L Normal 3.3-5.1 [facility] Comment on above: Order Comment: 157 Performed By: #### L 501.5200, L500.2500 #### [facility] [address] [place], [address] Sodium [Moles/Vol] 140 mmol/L Normal 133-145 [facility] [place] [facility] Comment on above: Order Comment: 157 Performed By: #### L 501.5200, L500.2500 #### [facility] [address] [place], [address] Urea nitrogen [Mass/Vol] 34 mg/dL High 4-19 [facility] Comment on above: Order Comment: 157 Performed By: #### L 501.5200, L500.2500 #### [facility] [address] [place], [address] Carbon dioxide, total [Moles /volume] in Central venous bloodOrdered By: Melissa Reed on 09-19-2024 CO2 [Moles/Vol] 27.2 mmol/L 21.0-32.0 [facility] Chloride assayOrdered By: Sd Reed on 09-19-2024 Chloride [Moles/Vol] 103 mmol/L 98-108 [facility] GFR/1.73 sq M.predicted denise g non-blacks MDRD (S/P/Bld) [Vol rate/Area]Ordered By: Melissa Reed on 09-19-2024 Estimated GFR (MDRD) Non-Af Amer 49 Low >60 [facility] Comment on above: mL/min/1.73m2 CKD-EP I Creatinine Equation (2020) Glomerular filtration rate ( GFR) estimation/1.73 sq m using serum, plasma, or whole bOrdered By: Melissa Reed on 09-19-2024 GFR/1.73 sq M.predicted among non-blacks MDRD (S/P/Bld) [Vol rate/Area] 49 mL/min/{1.73_m2} Low >60 [facility] Comment on above: mL/min/1.73m2 CKD-EP I Creatinine Equation (2020) Magnesiumon 09-19-2024 Magnesium [Mass/Vol] 2.2 mg/dL Normal 1.5-2.2 [facility] Comment on above: Order Comment: 157 Performed By: #### L 501.5200, L500.2500 #### [facility] [address] [place], [address] Magnesium (Unsp spec) [Mass/ Vol]Ordered By: Melissa Reed on 09-19-2024 Magnesium [Mass/Vol] 2.2 mg/dL 1.5-2.2 [facility] Magnesium measurement (mass/ volume)Ordered By: Melissa Reed on 09-19-2024 Magnesium (Unsp spec) [Mass/Vol] 2.2 mg/dL 1.5-2.2 [facility] Potassium (Unsp spec) [Mass/ Vol]Ordered By: Melissa Reed on 09-19-2024 Potassium [Moles/Vol] 4.0 mmol/L 3.3-5.1 [facility] Potassium measurement (mass/ volume)Ordered By: Melissa Reed on 09-19-2024 Potassium (Unsp spec) [Mass/Vol] 4.0 mmol/L 3.3-5.1 [facility] Serum creatinine measurement (mass/volume)Ordered By: Melissa Reed on 09-19-2024 Creatinine [Mass/Vol] 1.13 mg/dL 0.70-1.20 [facility] Serum glucose measurement (m ass/volume)Ordered By: Melissa Reed on 09-19-2024 Glucose [Mass/Vol] 165 mg/dL High 70-99 [facility] [place] [facility] Serum or plasma calcium danae urement (mass/volume)Ordered By: Melissa Reed on 09-19-2024 Calcium [Mass/Vol] 8.6 mg/dL 7.6-11.0 [facility] [place] [facility] Serum or plasma urea nitroge n measurement (mass/volume)Ordered By: Melissa Reed on 09-19-2024 Urea nitrogen [Mass/Vol] 34 mg/dL High 4-19 [facility] Sodium levelOrdered By: Rubin Reed on 09-19-2024 Sodium [Moles/Vol] 140 mmol/L 133-145 [facility] [place] [facility] Urine Cultureon 09-19-2024 [facility] REPOR T ESCHERICHIA COLI mCIM NEGATIVE [...] [id number] 09/08/24 0701 MARYLOU. ESBL Escherichia coli [place] Count >100,000 MARKER Possible Carbapenemase producing EnterobacteriaceaeA [...] S Tobramycin Islt LAVINIA <=1 S Normal [facility] Comment on above: Performed By: #### M 100.2200, L400.0001 #### [facility] [address] [place], [address] Urinalysis, Completeon 09-06 EPI,TRANSITION 0-5 SEEN Normal 0-5 [facility] Comment on above: Order Comment: CLEAN CATCH Performed By: #### M 100.2200, L400.0001 #### [facility] [address] [place], [address] BACTERIA 3+ /hpf Normal None Seen [facility] Comment on above: Order Comment: CLEAN CATCH Performed By: #### M 100.2200, L400.0001 #### [facility] [address] [place], [address] EPI,SQUAMOUS 5-10 SEEN Normal 5-10 [facility] Comment on above: Order Comment: CLEAN CATCH Performed By: #### M 100.2200, L400.0001 #### [facility] [address] [place], [address] RBC 0-5 SEEN Normal 0-5 [facility] Comment on above: Order Comment: CLEAN CATCH Performed By: #### M 100.2200, L400.0001 #### [facility] [address] [place], [address] WBC 25-50 SEEN Normal 0-5 [facility] Comment on above: Order Comment: CLEAN CATCH Performed By: #### M 100.2200, L400.0001 #### [facility] [address] [place], [address] Mucus Ql (Urine sed) 0 SEEN Normal [facility] Comment on above: Order Comment: CLEAN CATCH Performed By: #### M 100.2200, L400.0001 #### [facility] [address] [place], [address] Bilirubin Test strip Ql (U)O rdered By: Melissa Reed on 09-05-2024 Bilirubin Ql (U) Negative Negative [facility] Epithelial cells.squamous LM Ql (Urine sed)Ordered By: Melissa Reed on 09-05-2024 Epithelial cells.squamous LM.HPF (Urine sed) [#/Area] 5 /[HPF] 5-10 [facility] Glucose Ql (U)Ordered By: Sd Reed on 09-05-2024 Urine Glucose (UA) Normal mg/dl Normal [facility] Ketones Test strip Ql (U)Ord ered By: Melissa Reed on 09-05-2024 Ketones Ql (U) Negative Negative [facility] Microscopic analysis of urin e for red blood cells (RBC)Ordered By: Melissa Reed on 09-05-2024 Microscopic analysis of urine for red blood cells (RBC) 0-5 SEEN /hpf 0-5 [facility] Urine RBC 0-5 SEEN /hpf 0-5 [facility] Mucus LM Ql (Urine sed)Order ed By: Melissa Reed on 09-05-2024 Mucus Ql (Urine sed) 0 SEEN /hpf [facility] Nitrite Test strip Ql (U)Ord ered By: Melissa Reed on 09-05-2024 Nitrite Ql (U) Positive High Negative [facility] Protein Test strip Ql (U)Ord ered By: Melissa Reed on 09-05-2024 Protein Ql (U) 30 mg/dl High Negative [facility] Squamous epithelial cells de tection in urine sediment by light microscopyOrdered By: Melissa Reed on 09-05-2024 Epithelial cells.squamous LM Ql (Urine sed) 5-10 SEEN /hpf 5-10 [facility] Transitional cells LM Ql (Ur ine sed)Ordered By: Melissa Reed on 09-05-2024 Urine Transitional Epithelial Cells 0-5 SEEN /hpf 0-5 [facility] Transitional cells detection in urine sediment by light microscopyOrdered By: Melissa Reed on 09-05-2024 Transitional cells LM Ql (Urine sed) 0-5 SEEN /hpf 0-5 [facility] Urine blood detectionOrdered By: Melissa Reed on 09-05-2024 Urine Occult Blood 10 /ul High Negative [facility] [place] [facility] Urine clarityOrdered By: Lillian Reed on 09-05-2024 Clarity (U) Sl. Cloudy Clear [facility] Urine color determinationOrd ered By: Melissa Reed on 09-05-2024 Color (U) Yellow Yellow [facility] Urine cultureOrdered By: Lillian Reed on 09-05-2024 Bacteria identified Cx Nom (U) ESBL Escherichia coli Abnormal [facility] Urine glucose detectionOrder ed By: Melissa Reed on 09-05-2024 Glucose Ql (U) Normal mg/dl Normal [facility] Urine leukocyte esterase det ection by dipstickOrdered By: Melissa Reed on 09-05-2024 Leukocyte esterase Test strip Ql (U) 500 /ul High Negative [facility] Urine pHOrdered By: Melissa kerr on 09-05-2024 pH (U) 6.5 [pH] 5.0 - 8.0 [facility] Urine sediment bacteria coun t by microscopy (number/high power field)Ordered By: Melissa Reed on 09-05-2024 Bacteria LM.HPF (Urine sed) [#/Area] 3 /[HPF] None Seen [facility] Urine specific gravity measu rementOrdered By: Melissa Reed on 09-05-2024 Specific gravity (U) [Rel density] 1.015 1.002-1.030 [facility] Urine urobilinogen measureme ntOrdered By: Melissa Reed on 09-05-2024 Urobilinogen Ql (U) Normal mg/dl Normal [facility] Urobilinogen Ql (U)Ordered B y: Melissa Reed on 09-05-2024 Urine Urobilinogen Normal mg/dl Normal [facility] White blood cell countOrdere d By: Melissa Reed on 09-05-2024 Urine WBC 25-50 SEEN /hpf 0-5 [facility] White blood cell count 25-50 SEEN /hpf 0-5 [facility] Anion gap in Serum or Plasma Ordered By: Melissa Reed on 08-22-2024 Anion gap [Moles/Vol] 11 mmol/L 5-15 [facility] BUN/creatinine ratioOrdered By: Melissa Reed on 08-22-2024 Urea nitrogen/Creatinine [Mass ratio] 21.6 mg/mg High - [facility] Basic Metabolic Profile (BMP )on 08-22-2024 BUN/CRE 21.6 RATIO High - [facility] Comment on above: Performed By: #### L 500.2500, L501.5200 #### [facility] [address] [place], [address] Calcium [Mass/Vol] 8.8 mg/dL Normal 7.6-11.0 [facility] [place] [facility] Comment on above: Performed By: #### L 500.2500, L501.5200 #### [facility] [address] [place], [address] Chloride [Moles/Vol] 103 mmol/L Normal 98-108 [facility] Comment on above: Performed By: #### L 500.2500, L501.5200 #### [facility] [address] [place], [address] CO2 [Moles/Vol] 24.4 mmol/L Normal 21.0-32.0 [facility] Comment on above: Performed By: #### L 500.2500, L501.5200 #### [facility] [address] [place], [address] Creatinine [Mass/Vol] 1.14 mg/dL Normal 0.70-1.20 [facility] Comment on above: Performed By: #### L 500.2500, L501.5200 #### [facility] [address] [place], [address] GAP 11 Normal 5-15 [facility] Comment on above: Performed By: #### L 500.2500, L501.5200 #### [facility] [address] [place], [address] GFR/1.73 sq M.predicted among non-blacks MDRD (S/P/Bld) [Vol rate/Area] 49 mL/min/{1.73_m2} Low >60 [facility] Comment on above: Result Comment: mL/m in/1.73m2 CKD-EPI Creatinine Equation (2020) Performed By: #### L 500.2500, L501.5200 #### [facility] [address] [place], [address] Glucose [Mass/Vol] 104 mg/dL High 70-99 [facility] [place] [facility] Comment on above: Performed By: #### L 500.2500, L501.5200 #### [facility] [address] [place], [address] Potassium [Moles/Vol] 4.1 mmol/L Normal 3.3-5.1 [facility] Comment on above: Result Comment: Hemo lysis present, Results??could be affected. ?? Performed By: #### L 500.2500, L501.5200 #### [facility] [address] [place], [address] Sodium [Moles/Vol] 138 mmol/L Normal 133-145 [facility] [place] [facility] Comment on above: Performed By: #### L 500.2500, L501.5200 #### [facility] [address] [place], [address] Urea nitrogen [Mass/Vol] 25 mg/dL High 4-19 [facility] Comment on above: Performed By: #### L 500.2500, L501.5200 #### [facility] [address] [place], [address] Carbon dioxide, total [Moles /volume] in Central venous bloodOrdered By: Melissa Reed on 08-22-2024 CO2 [Moles/Vol] 24.4 mmol/L 21.0-32.0 [facility] Chloride assayOrdered By: Sd Reed on 08-22-2024 Chloride [Moles/Vol] 103 mmol/L 98-108 [facility] GFR/1.73 sq M.predicted denise g non-blacks MDRD (S/P/Bld) [Vol rate/Area]Ordered By: Melissa Reed on 08-22-2024 Estimated GFR (MDRD) Non-Af Amer 49 Low >60 [facility] Comment on above: mL/min/1.73m2 CKD-EP I Creatinine Equation (2020) Glomerular filtration rate ( GFR) estimation/1.73 sq m using serum, plasma, or whole bOrdered By: Melissa Reed on 08-22-2024 GFR/1.73 sq M.predicted among non-blacks MDRD (S/P/Bld) [Vol rate/Area] 49 mL/min/{1.73_m2} Low >60 [facility] Comment on above: mL/min/1.73m2 CKD-EP I Creatinine Equation (2020) Magnesiumon 08-22-2024 Magnesium [Mass/Vol] 2.3 mg/dL High 1.5-2.2 [facility] Comment on above: Performed By: #### L 501.5200, L500.2500 #### [facility] [place], [address] Magnesium (Unsp spec) [Mass/ Vol]Ordered By: Melissa Reed on 08-22-2024 Magnesium [Mass/Vol] 2.3 mg/dL High 1.5-2.2 [facility] Magnesium measurement (mass/ volume)Ordered By: Melissa Reed on 08-22-2024 Magnesium (Unsp spec) [Mass/Vol] 2.3 mg/dL High 1.5-2.2 [facility] Potassium (Unsp spec) [Mass/ Vol]Ordered By: Melissa Reed on 08-22-2024 Potassium [Moles/Vol] 4.1 mmol/L 3.3-5.1 [facility] Comment on above: Hemolysis present, R esults could be affected. Potassium measurement (mass/ volume)Ordered By: Melissa Reed on 08-22-2024 Potassium (Unsp spec) [Mass/Vol] 4.1 mmol/L 3.3-5.1 [facility] Comment on above: Hemolysis present, R esults could be affected. Serum creatinine measurement (mass/volume)Ordered By: Melissa Reed on 08-22-2024 Creatinine [Mass/Vol] 1.14 mg/dL 0.70-1.20 [facility] Serum glucose measurement (m ass/volume)Ordered By: Melissa Reed on 08-22-2024 Glucose [Mass/Vol] 104 mg/dL High 70-99 [facility] [place] [facility] Serum or plasma calcium danae urement (mass/volume)Ordered By: Melissa Reed on 08-22-2024 Calcium [Mass/Vol] 8.8 mg/dL 7.6-11.0 [facility] [place] [facility] Serum or plasma urea nitroge n measurement (mass/volume)Ordered By: Melissa Reed on 08-22-2024 Urea nitrogen [Mass/Vol] 25 mg/dL High 4-19 [facility] Sodium levelOrdered By: Rubin Reed on 08-22-2024 Sodium [Moles/Vol] 138 mmol/L 133-145 [facility] [place] [facility] Urine Cultureon 08-10-2024 [facility] Copy of report sent to Infection Control Printer [id number] 08/10/24 0702 MARYLOU. ESBL Escherichia coli [place] Count 80,000-100,000 ESBL Escherichia coli: REACTION Ampicillin [...] S Tobramycin Islt LAVINIA <=1 S Normal [facility] Comment on above: Performed By: #### L 501.5200, L500.2500 #### [facility] [address] [facility] [address] Basic Metabolic Profile (BMP )on 08-08-2024 BUN/CRE 27.6 RATIO High - [facility] Comment on above: Performed By: #### L 500.2500, L501.5200 #### [facility] [address] [facility] [address] CA,Total 8.6 mg/dL Normal 8.5-10.1 [facility] Comment on above: Performed By: #### L 500.2500, L501.5200 #### [facility] [address] [facility] [address] Chloride [Moles/Vol] 103 mmol/L Normal 98-107 [facility] Comment on above: Performed By: #### L 500.2500, L501.5200 #### [facility] [address] [place], [address] CO2 [Moles/Vol] 31.0 mmol/L Normal 21.0-32.0 [facility] Comment on above: Performed By: #### L 500.2500, L501.5200 #### [facility] [address] [place], [address] Creatinine [Mass/Vol] 1.23 mg/dL High 0.55-1.02 [facility] Comment on above: Result Comment: The validity of the calculated GFR GFRAA in patients over 70 years has not been determined. Clinical correlation is essential. Performed By: #### L 500.2500, L501.5200 #### [facility] [address] [place], [address] EST GFR - AA 54 mL/min Low >60 [facility] Comment on above: Result Comment: Afri can Malagasy GFR Calc Performed By: #### L 500.2500, L501.5200 #### [facility] [address] [place], [address] GAP 4 Low 5-15 [facility] Comment on above: Performed By: #### L 500.2500, L501.5200 #### [facility] [address] [place], [address] GFR/1.73 sq M.predicted among non-blacks MDRD (S/P/Bld) [Vol rate/Area] 45 mL/min/{1.73_m2} Low >60 [facility] Comment on above: Result Comment: Non- GFR Calc Performed By: #### L 500.2500, L501.5200 #### [facility] [address] [place], [address] Glucose [Mass/Vol] 192 mg/dL High 74-106 [facility] [place] [facility] Comment on above: Result Comment: Fast ing Glucose result greater than or equal to 126 mg/dL suggests DIABETES MELLITUS per A.D.A. criteria. Performed By: #### L 500.2500, L501.5200 #### [facility] [address] [place], [address] Potassium [Moles/Vol] 4.1 mmol/L Normal 3.5-5.1 [facility] Comment on above: Performed By: #### L 500.2500, L501.5200 #### [facility] [address] [place], [address] Sodium [Moles/Vol] 138 mmol/L Normal 136-145 [facility] [place] [facility] Comment on above: Performed By: #### L 500.2500, L501.5200 #### [facility] [address] [place], [address] Urea nitrogen [Mass/Vol] 34 mg/dL High 7-18 [facility] Comment on above: Performed By: #### L 500.2500, L501.5200 #### [facility] [address] [place], [address] Blood urea nitrogen (BUN)/cr eatinine ratioOrdered By: Melissa Reed on 08-08-2024 Urea nitrogen/Creatinine [Mass ratio] 27.6 mg/mg High 10-20 [facility] Carbon dioxide measurementOr dered By: Melissa Reed on 08-08-2024 CO2 [Moles/Vol] 31.0 mmol/L 21.0-32.0 [facility] Chloride measurementOrdered By: Melissa Reed on 08-08-2024 Chloride [Moles/Vol] 103 mmol/L 98-107 [facility] Estimated glomerular filtrat ion rate (GFR) AmericanOrdered By: Melissa Reed on 08-08-2024 Estimated GFR (MDRD) Amer 54 mL/min Low >60 [facility] Comment on above: GFR Calc Glomerular filtration rate ( GFR) estimationOrdered By: Melissa Reed on 08-08-2024 Estimated GFR (MDRD) Non-Af Amer 45 mL/min Low >60 [facility] Comment on above: Non- GFR Calc GFR/1.73 sq M.predicted among non-blacks MDRD (S/P/Bld) [Vol rate/Area] 45 mL/min/{1.73_m2} Low >60 [facility] Comment on above: Non- GFR Calc Glucose measurementOrdered B y: Melissa Reed on 08-08-2024 Glucose [Mass/Vol] 192 mg/dL High 74-106 [facility] [place] [facility] Comment on above: Fasting Glucose resu lt greater than or equal to 126 mg/dL suggests DIABETES MELLITUS per A.D.A. criteria. Magnesiumon 08-08-2024 Magnesium [Mass/Vol] 2.2 mg/dL Normal 1.6-2.6 [facility] Comment on above: Performed By: #### L 500.2500, L501.5200 #### [facility] [address] [place] [address]. [place], [address] Magnesium measurementOrdered By: Melissa Reed on 08-08-2024 Magnesium [Mass/Vol] 2.2 mg/dL 1.6-2.6 [facility] Potassium measurementOrdered By: Melissa Reed on 08-08-2024 Potassium [Moles/Vol] 4.1 mmol/L 3.5-5.1 [facility] Serum anion gap measurementO rdered By: Melissa Reed on 08-08-2024 Anion gap [Moles/Vol] 4 mmol/L Low 5-15 [facility] Serum or plasma calcium danae urement (mass/volume)Ordered By: Melissa Reed on 08-08-2024 Calcium [Mass/Vol] 8.6 mg/dL 8.5-10.1 [facility] [place] [facility] Serum or plasma creatinine m easurement (mass/volume)Ordered By: Melissa Reed on 08-08-2024 Creatinine [Mass/Vol] 1.23 mg/dL High 0.55-1.02 [facility] Comment on above: The validity of the calculated GFR & GFRAA in patients over 70 years has not been determined. Clinical correlation is essential. Serum or plasma urea nitroge n measurement (mass/volume)Ordered By: Melissa Reed on 08-08-2024 Urea nitrogen [Mass/Vol] 34 mg/dL High 7-18 [facility] Sodium levelOrdered By: Rubin Reed on 08-08-2024 Sodium [Moles/Vol] 138 mmol/L 136-145 [facility] [place] [facility] Urinalysis, Completeon 08-07 BACTERIA 4+ /hpf Normal None Seen [facility] Comment on above: Order Comment: 157 Performed By: #### L 501.5200, L500.2500 #### [facility] [address] [place], [address] EPI,SQUAMOUS 0-5 SEEN Normal 5-10 [facility] Comment on above: Order Comment: 157 Performed By: #### L 501.5200, L500.2500 #### [facility] [address] [place], [address] RBC 0-5 SEEN Normal 0-5 [facility] Comment on above: Order Comment: 157 Performed By: #### L 501.5200, L500.2500 #### [facility] [address] [place], [address] WBC 10-25 SEEN Normal 0-5 [facility] Comment on above: Order Comment: 157 Performed By: #### L 501.5200, L500.2500 #### [facility] [address] [place], [address] Mucus Ql (Urine sed) 0 SEEN Normal [facility] Comment on above: Order Comment: 157 Performed By: #### L 501.5200, L500.2500 #### [facility] [address] [place], [address] Bilirubin Test strip Ql (U)O rdered By: Melissa Reed on 08-06-2024 Bilirubin Ql (U) Negative Negative [facility] Epithelial cells.squamous LM Ql (Urine sed)Ordered By: Melissa Reed on 08-06-2024 Epithelial cells.squamous LM.HPF (Urine sed) [#/Area] 0 /[HPF] 5-10 [facility] Glucose Ql (U)Ordered By: Sd Reed on 08-06-2024 Urine Glucose (UA) Normal mg/dl Normal [facility] Ketones Test strip Ql (U)Ord ered By: Melissa Reed on 08-06-2024 Ketones Ql (U) Negative Negative [facility] Microscopic analysis of urin e for red blood cells (RBC)Ordered By: Melissa Reed on 08-06-2024 Microscopic analysis of urine for red blood cells (RBC) 0-5 SEEN /hpf 0-5 [facility] Urine RBC 0-5 SEEN /hpf 0-5 [facility] Mucus LM Ql (Urine sed)Order ed By: Melissa Reed on 08-06-2024 Mucus Ql (Urine sed) 0 SEEN /hpf [facility] Nitrite Test strip Ql (U)Ord ered By: Melissa Reed on 08-06-2024 Nitrite Ql (U) Positive High Negative [facility] Protein Test strip Ql (U)Ord ered By: Melissa Reed on 08-06-2024 Protein Ql (U) Negative Negative [facility] Squamous epithelial cells de tection in urine sediment by light microscopyOrdered By: Melissa Reed on 08-06-2024 Epithelial cells.squamous LM Ql (Urine sed) 0-5 SEEN /hpf 5-10 [facility] Urine blood detectionOrdered By: Melissa Reed on 08-06-2024 Urine Occult Blood Negative Negative [facility] [place] [facility] Urine clarityOrdered By: Lillian Reed on 08-06-2024 Clarity (U) Cloudy Clear [facility] Urine color determinationOrd ered By: Melissa Reed on 08-06-2024 Color (U) Yellow Yellow [facility] Urine cultureOrdered By: Lillian Reed on 08-06-2024 Bacteria identified Cx Nom (U) ESBL Escherichia coli Abnormal [facility] Urine glucose detectionOrder ed By: Melissa Reed on 08-06-2024 Glucose Ql (U) Normal mg/dl Normal [facility] Urine leukocyte esterase det ection by dipstickOrdered By: Melissa Reed on 08-06-2024 Leukocyte esterase Test strip Ql (U) 500 /ul High Negative [facility] Urine pHOrdered By: Melissa kerr on 08-06-2024 pH (U) 7.0 [pH] 5.0 - 8.0 [facility] Urine sediment bacteria coun t by microscopy (number/high power field)Ordered By: Melissa Reed on 08-06-2024 Bacteria LM.HPF (Urine sed) [#/Area] 4 /[HPF] None Seen [facility] Urine specific gravity measu rementOrdered By: Melissa Reed on 08-06-2024 Specific gravity (U) [Rel density] 1.010 1.002-1.030 [facility] Urine urobilinogen measureme ntOrdered By: Melissa Reed on 08-06-2024 Urobilinogen Ql (U) Normal mg/dl Normal [facility] Urobilinogen Ql (U)Ordered B y: Melissa Reed on 08-06-2024 Urine Urobilinogen Normal mg/dl Normal [facility] White blood cell countOrdere d By: Melissa Reed on 08-06-2024 Urine WBC 10-25 SEEN /hpf 0-5 [facility] White blood cell count 10-25 SEEN /hpf 0-5 [facility] Cerv Spine 2 or 3 Viewson Cerv Spine 2 or 3 Views [facility] [address] [place] [address] [id number] Cerv Spine 2 or 3 Views MR#: [id number] Acct: [id number] Name: RADHA SANDOVAL Rep #: [id number] : 1945 F 78 [place] [facility] [place] PCP: Melissa Reed MD Status: REG CLI Study: Cerv Spine 2 or 3 Views Date of Exam: 07/31/24 Exam# [id number] Ordering Dr: Gypsy Argueta MD PROCEDURE: CERVICAL [...] Dr. Gypsy Argueta MD; Melissa Reed MD Sport Psychologist: Signed Normal [facility] Shoulder min 2 Viewson 07-31 Shoulder min 2 Views [facility] [address] [place], [place] [id number] Shoulder min 2 Views MR#: [id number] Acct: [id number] Name: RADHA SANDOVAL Rep #: [id number] : 1945 F 78 From: [facility] PCP: Melissa Reed MD Status: REG CLI Study: Shoulder min 2 Views Date of Exam: 07/31/24 Exam# [id number] Ordering Dr: Gypsy Argueta MD PROCEDURE: Left [...] Dr. Gypsy Argueta MD; Melissa Reed MD Sport Psychologist: Signed Normal [facility] Shoulder min 2 Views [facility] [address] [place], [place] [id number] Shoulder min 2 Views MR#: [id number] Acct: [id number] Name: RADHA SANDOVAL Rep #: [id number] : 1945 F 78 From: [facility] PCP: Melissa Reed MD Status: REG CLI Study: Shoulder min 2 Views Date of Exam: 07/31/24 Exam# [id number] Ordering Dr: Gypsy Argueta MD PROCEDURE: Right shoulder radiographs REASON FOR EXAM: Pain TECHNIQUE: Five views of the right shoulder COMPARISON: None. FINDINGS: See impression RAD/Shoulder min 2 Views IMPRESSION: Limited exam due to patient immobility. Negative for acute displaced fracture or dislocation. Probable severe glenohumeral joint osteoarthritis. Acromioclavicular joint is intact. Reading Location: [facility] CC: Dr. Gypsy Argueta MD; Melissa Reed MD Sport Psychologist: Signed Normal [facility] Basic Metabolic Profile (BMP )on 07-25-2024 BUN/CRE 26.7 RATIO High 10-20 [facility] Comment on above: Order Comment: CLEAN CATCH Performed By: #### M 100.2200, [id number] #### [facility] [address] [place], [address] CA,Total 9.1 mg/dL Normal 8.5-10.1 [facility] Comment on above: Order Comment: CLEAN CATCH Performed By: #### M 100.2200, [id number] #### [facility] [address] [place], [address] Chloride [Moles/Vol] 103 mmol/L Normal 98-107 [facility] Comment on above: Order Comment: CLEAN CATCH Performed By: #### M 100.2200, [id number] #### [facility] [address] [place], [address] CO2 [Moles/Vol] 31.0 mmol/L Normal 21.0-32.0 [facility] Comment on above: Order Comment: CLEAN CATCH Performed By: #### M 100.2200, [id number] #### [facility] [address] [place], [address] Creatinine [Mass/Vol] 0.97 mg/dL Normal 0.55-1.02 [facility] Comment on above: Order Comment: CLEAN CATCH Result Comment: The validity of the calculated GFR GFRAA in patients over 70 years has not been determined. Clinical correlation is essential. Performed By: #### M 100.2200, [id number] #### [facility] [address] [place], [address] EST GFR - AA 71 mL/min Normal >60 [facility] Comment on above: Order Comment: CLEAN CATCH Result Comment: Afri can Malagasy GFR Calc Performed By: #### M 100.2200, [id number] #### [facility] [address] [place], [address] GAP 4 Low 5-15 [facility] Comment on above: Order Comment: CLEAN CATCH Performed By: #### M 100.2200, [id number] #### [facility] [address] [place], [address] GFR/1.73 sq M.predicted among non-blacks MDRD (S/P/Bld) [Vol rate/Area] 58 mL/min/{1.73_m2} Low >60 [facility] Comment on above: Order Comment: CLEAN CATCH Result Comment: Non- GFR Calc Performed By: #### M 100.2200, [id number] #### [facility] [address] [place], [address] Glucose [Mass/Vol] 120 mg/dL High 74-106 [facility] [place] Comment on above: Order Comment: CLEAN CATCH Result Comment: Fast ing Glucose result from 100 to 125 mg/dL suggests IMPAIRED HOMEOSTASIS per A.D.A. criteria. Performed By: #### M 100.2200, [id number] #### [facility] [address] [place], [address] Potassium [Moles/Vol] 3.9 mmol/L Normal 3.5-5.1 [facility] Comment on above: Order Comment: CLEAN CATCH Performed By: #### M 100.2200, [id number] #### [facility] [address] [place], [address] Sodium [Moles/Vol] 138 mmol/L Normal 136-145 [facility] [place] [facility] Comment on above: Order Comment: CLEAN CATCH Performed By: #### M 100.2200, [id number] #### [facility] [address] [place], [address] Urea nitrogen [Mass/Vol] 26 mg/dL High 7-18 [facility] Comment on above: Order Comment: CLEAN CATCH Performed By: #### M 100.2200, [id number] #### [facility] [address] [place], [address] Blood urea nitrogen (BUN)/cr eatinine ratioOrdered By: Melissa Reed on 07-25-2024 Urea nitrogen/Creatinine [Mass ratio] 26.7 mg/mg High 10-20 [facility] Carbon dioxide measurementOr dered By: Melissa Reed on 07-25-2024 CO2 [Moles/Vol] 31.0 mmol/L 21.0-32.0 [facility] Chloride measurementOrdered By: Melissa Reed on 07-25-2024 Chloride [Moles/Vol] 103 mmol/L 98-107 [facility] Estimated glomerular filtrat ion rate (GFR) AmericanOrdered By: Melissa Reed on 07-25-2024 Estimated GFR (MDRD) Amer 71 mL/min >60 [facility] Comment on above: GFR Calc Glomerular filtration rate ( GFR) estimationOrdered By: Melissa Reed on 07-25-2024 Estimated GFR (MDRD) Non-Af Amer 58 mL/min Low >60 [facility] Comment on above: Non- GFR Calc Glucose measurementOrdered B y: Melissa Reed on 07-25-2024 Glucose [Mass/Vol] 120 mg/dL High 74-106 [facility] [place] [facility] Comment on above: Fasting Glucose resu lt from 100 to 125 mg/dL suggests IMPAIRED HOMEOSTASIS per A.D.A. criteria. Magnesiumon 07-25-2024 Magnesium [Mass/Vol] 2.2 mg/dL Normal 1.6-2.6 [facility] Comment on above: Order Comment: CLEAN CATCH Performed By: #### M 100.2200, [id number] #### [facility] [address] [place], [address] Magnesium measurementOrdered By: Melissa Reed on 07-25-2024 Magnesium [Mass/Vol] 2.2 mg/dL 1.6-2.6 [facility] Potassium measurementOrdered By: Melissa Reed on 07-25-2024 Potassium [Moles/Vol] 3.9 mmol/L 3.5-5.1 [facility] Serum anion gap measurementO rdered By: Melissa Reed on 07-25-2024 Anion gap [Moles/Vol] 4 mmol/L Low 5-15 [facility] Serum or plasma calcium danae urement (mass/volume)Ordered By: Melissa Reed on 07-25-2024 Calcium [Mass/Vol] 9.1 mg/dL 8.5-10.1 [facility] [place] [facility] Serum or plasma creatinine m easurement (mass/volume)Ordered By: Melissa Reed on 07-25-2024 Creatinine [Mass/Vol] 0.97 mg/dL 0.55-1.02 [facility] Comment on above: The validity of the calculated GFR & GFRAA in patients over 70 years has not been determined. Clinical correlation is essential. Serum or plasma urea nitroge n measurement (mass/volume)Ordered By: Melissa Reed on 07-25-2024 Urea nitrogen [Mass/Vol] 26 mg/dL High 7-18 [facility] Sodium levelOrdered By: Rubin Reed on 07-25-2024 Sodium [Moles/Vol] 138 mmol/L 136-145 [facility] [place] [facility] Basic Metabolic Profile (BMP )on 07-11-2024 BUN/CRE 30.4 RATIO High 10-20 [facility] Comment on above: Order Comment: CLEAN CATCH Performed By: #### M 100.2200, [id number] #### [facility] [address] [place], [address] CA,Total 9.0 mg/dL Normal 8.5-10.1 [facility] Comment on above: Order Comment: CLEAN CATCH Performed By: #### M 100.2200, [id number] #### [facility] [address] [place], [address] Chloride [Moles/Vol] 103 mmol/L Normal 98-107 [facility] Comment on above: Order Comment: CLEAN CATCH Performed By: #### M 100.2200, [id number] #### [facility] [address] [place], [address] CO2 [Moles/Vol] 32.0 mmol/L Normal 21.0-32.0 [facility] Comment on above: Order Comment: CLEAN CATCH Performed By: #### M 100.2200, [id number] #### [facility] [address] [place], [address] Creatinine [Mass/Vol] 0.86 mg/dL Normal 0.55-1.02 [facility] Comment on above: Order Comment: CLEAN CATCH Result Comment: The validity of the calculated GFR GFRAA in patients over 70 years has not been determined. Clinical correlation is essential. Performed By: #### M 100.2200, [id number] #### [facility] [address] [place], [address] EST GFR - AA 82 mL/min Normal >60 [facility] Comment on above: Order Comment: CLEAN CATCH Result Comment: Afri can Malagasy GFR Calc Performed By: #### M 100.2200, [id number] #### [facility] [address] [place], [address] GAP 5 Normal 5-15 [facility] Comment on above: Order Comment: CLEAN CATCH Performed By: #### M 100.2200, [id number] #### [facility] [address] [place], [address] GFR/1.73 sq M.predicted among non-blacks MDRD (S/P/Bld) [Vol rate/Area] 68 mL/min/{1.73_m2} Normal >60 [facility] Comment on above: Order Comment: CLEAN CATCH Result Comment: Non- GFR Calc Performed By: #### M 100.2200, [id number] #### [facility] [address] [place], [address] Glucose [Mass/Vol] 109 mg/dL High 74-106 [facility] [place] [facility] Comment on above: Order Comment: CLEAN CATCH Result Comment: Fast ing Glucose result from 100 to 125 mg/dL suggests IMPAIRED HOMEOSTASIS per A.D.A. criteria. Performed By: #### M 100.2200, [id number] #### [facility] [address] [place], [address] Potassium [Moles/Vol] 4.1 mmol/L Normal 3.5-5.1 [facility] Comment on above: Order Comment: CLEAN CATCH Performed By: #### M 100.2200, [id number] #### [facility] [address] [place], [address] Sodium [Moles/Vol] 140 mmol/L Normal 136-145 [facility] [place] [facility] Comment on above: Order Comment: CLEAN CATCH Performed By: #### M 100.2200, [id number] #### [facility] [address] [place], [address] Urea nitrogen [Mass/Vol] 26 mg/dL High 7-18 [facility] Comment on above: Order Comment: CLEAN CATCH Performed By: #### M 100.2200, [id number] #### [facility] [address] [place], [address] Blood urea nitrogen (BUN)/cr eatinine ratioOrdered By: Melissa Reed on 07-11-2024 Urea nitrogen/Creatinine [Mass ratio] 30.4 mg/mg High 10-20 [facility] Carbon dioxide measurementOr dered By: Melissa Reed on 07-11-2024 CO2 [Moles/Vol] 32.0 mmol/L 21.0-32.0 [facility] Chloride measurementOrdered By: Melissa Reed on 07-11-2024 Chloride [Moles/Vol] 103 mmol/L 98-107 [facility] Estimated glomerular filtrat ion rate (GFR) AmericanOrdered By: Melissa Reed on 07-11-2024 Estimated GFR (MDRD) Amer 82 mL/min >60 [facility] Comment on above: GFR Calc Glomerular filtration rate ( GFR) estimationOrdered By: Melissa Reed on 07-11-2024 Estimated GFR (MDRD) Non-Af Amer 68 mL/min >60 [facility] Comment on above: Non- GFR Calc Glucose measurementOrdered B y: Melissa Reed on 07-11-2024 Glucose [Mass/Vol] 109 mg/dL High 74-106 [facility] [place] [facility] Comment on above: Fasting Glucose resu lt from 100 to 125 mg/dL suggests IMPAIRED HOMEOSTASIS per A.D.A. criteria. Magnesiumon 07-11-2024 Magnesium [Mass/Vol] 2.2 mg/dL Normal 1.6-2.6 [facility] Comment on above: Order Comment: CLEAN CATCH Performed By: #### M 100.2200, [id number] #### [facility] [address] [place], [place], [id number] Magnesium measurementOrdered By: Melissa Reed on 07-11-2024 Magnesium [Mass/Vol] 2.2 mg/dL 1.6-2.6 [facility] Potassium measurementOrdered By: Melissa Reed on 07-11-2024 Potassium [Moles/Vol] 4.1 mmol/L 3.5-5.1 [facility] Serum anion gap measurementO rdered By: Melissa Reed on 07-11-2024 Anion gap [Moles/Vol] 5 mmol/L 5-15 [facility] Serum or plasma calcium danae urement (mass/volume)Ordered By: Melissa Reed on 07-11-2024 Calcium [Mass/Vol] 9.0 mg/dL 8.5-10.1 [facility] [place] [facility] Serum or plasma creatinine m easurement (mass/volume)Ordered By: Melissa Reed on 07-11-2024 Creatinine [Mass/Vol] 0.86 mg/dL 0.55-1.02 [facility] Comment on above: The validity of the calculated GFR & GFRAA in patients over 70 years has not been determined. Clinical correlation is essential. Serum or plasma urea nitroge n measurement (mass/volume)Ordered By: Melissa Reed on 07-11-2024 Urea nitrogen [Mass/Vol] 26 mg/dL High 7-18 [facility] Sodium levelOrdered By: Rubin Reed on 07-11-2024 Sodium [Moles/Vol] 140 mmol/L 136-145 [facility] [place] [facility] Basic Metabolic Profile (BMP )on 06-27-2024 BUN/CRE 23.7 RATIO High 10-20 [facility] Comment on above: Order Comment: CLEAN CATCH Performed By: #### M 100.2199, [id number] #### [facility] [address] [place], [address] CA,Total 8.7 mg/dL Normal 8.5-10.1 [facility] Comment on above: Order Comment: CLEAN CATCH Performed By: #### M 100.2199, [id number] #### [facility] [address] [place], [address] Chloride [Moles/Vol] 105 mmol/L Normal 98-107 [facility] Comment on above: Order Comment: CLEAN CATCH Performed By: #### M 100.2199, [id number] #### [facility] [address] [place], [address] CO2 [Moles/Vol] 31.0 mmol/L Normal 21.0-32.0 [facility] Comment on above: Order Comment: CLEAN CATCH Performed By: #### M 100.2200, [id number] #### [facility] [address] [place], [address] Creatinine [Mass/Vol] 1.18 mg/dL High 0.55-1.02 [facility] Comment on above: Order Comment: CLEAN CATCH Result Comment: The validity of the calculated GFR GFRAA in patients over 70 years has not been determined. Clinical correlation is essential. Performed By: #### M 100.2200, [id number] #### [facility] [address] [place], [address] EST GFR - AA 57 mL/min Low >60 [facility] Comment on above: Order Comment: CLEAN CATCH Result Comment: Afri can Malagasy GFR Calc Performed By: #### M 100.2200, [id number] #### [facility] [address] [place], [address] GAP 4 Low 5-15 [facility] Comment on above: Order Comment: CLEAN CATCH Performed By: #### M 100.2200, [id number] #### [facility] [address] [place], [address] GFR/1.73 sq M.predicted among non-blacks MDRD (S/P/Bld) [Vol rate/Area] 47 mL/min/{1.73_m2} Low >60 [facility] Comment on above: Order Comment: CLEAN CATCH Result Comment: Non- GFR Calc Performed By: #### M 100.2200, [id number] #### [facility] [address] [place], [address] Glucose [Mass/Vol] 85 mg/dL Normal 74-106 [facility] [place] [facility] Comment on above: Order Comment: CLEAN CATCH Performed By: #### M 100.2200, [id number] #### [facility] [address] [place], [address] Potassium [Moles/Vol] 3.8 mmol/L Normal 3.5-5.1 [facility] Comment on above: Order Comment: CLEAN CATCH Performed By: #### M 100.2200, [id number] #### [facility] [address] [place], [address] Sodium [Moles/Vol] 140 mmol/L Normal 136-145 [facility] [place] [facility] Comment on above: Order Comment: CLEAN CATCH Performed By: #### M 100.2200, [id number] #### [facility] [address] [place], [address] Urea nitrogen [Mass/Vol] 28 mg/dL High 7-18 [facility] Comment on above: Order Comment: CLEAN CATCH Performed By: #### M 100.2200, [id number] #### [facility] [address] [place], [address] Blood urea nitrogen (BUN)/cr eatinine ratioOrdered By: Melissa Reed on 06-27-2024 Urea nitrogen/Creatinine [Mass ratio] 23.7 mg/mg High 10-20 [facility] Carbon dioxide measurementOr dered By: Melissa Reed on 06-27-2024 CO2 [Moles/Vol] 31.0 mmol/L 21.0-32.0 [facility] Chloride measurementOrdered By: Melissa Reed on 06-27-2024 Chloride [Moles/Vol] 105 mmol/L 98-107 [facility] Estimated glomerular filtrat ion rate (GFR) AmericanOrdered By: Melissa Reed on 06-27-2024 Estimated GFR (MDRD) Amer 57 mL/min Low >60 [facility] Comment on above: GFR Calc Glomerular filtration rate ( GFR) estimationOrdered By: Melissa Reed on 06-27-2024 Estimated GFR (MDRD) Non-Af Amer 47 mL/min Low >60 [facility] Comment on above: Non- GFR Calc Glucose measurementOrdered B y: Melissa Reed on 06-27-2024 Glucose [Mass/Vol] 85 mg/dL 74-106 [facility] [place] [facility] Magnesiumon 06-27-2024 Magnesium [Mass/Vol] 2.2 mg/dL Normal 1.6-2.6 [facility] Comment on above: Order Comment: CLEAN CATCH Performed By: #### M 100.2200, [id number] #### [facility] [address] [place], [place], [id number] Magnesium measurementOrdered By: Melissa Reed on 06-27-2024 Magnesium [Mass/Vol] 2.2 mg/dL 1.6-2.6 [facility] Potassium measurementOrdered By: Melissa Reed on 06-27-2024 Potassium [Moles/Vol] 3.8 mmol/L 3.5-5.1 [facility] Serum anion gap measurementO rdered By: Melissa Reed on 06-27-2024 Anion gap [Moles/Vol] 4 mmol/L Low 5-15 [facility] Serum or plasma calcium danae urement (mass/volume)Ordered By: Melissa Reed on 06-27-2024 Calcium [Mass/Vol] 8.7 mg/dL 8.5-10.1 [facility] [place] [facility] Serum or plasma creatinine m easurement (mass/volume)Ordered By: Melissa Reed on 06-27-2024 Creatinine [Mass/Vol] 1.18 mg/dL High 0.55-1.02 [facility] Comment on above: The validity of the calculated GFR & GFRAA in patients over 70 years has not been determined. Clinical correlation is essential. Serum or plasma urea nitroge n measurement (mass/volume)Ordered By: Melissa Reed on 06-27-2024 Urea nitrogen [Mass/Vol] 28 mg/dL High 7-18 [facility] Sodium levelOrdered By: Rubin Reed on 06-27-2024 Sodium [Moles/Vol] 140 mmol/L 136-145 [facility] [place] [facility] Basic Metabolic Profile (BMP )on 06-13-2024 BUN/CRE 32.6 RATIO High 10-20 [facility] Comment on above: Performed By: #### L 500.2500, L501.5200 #### [facility] [address] [place], [address] CA,Total 8.7 mg/dL Normal 8.5-10.1 [facility] Comment on above: Performed By: #### L 500.2500, [id number] #### [facility] [address] [place], [address] Chloride [Moles/Vol] 105 mmol/L Normal 98-107 [facility] Comment on above: Performed By: #### L 500.2500, [id number] #### [facility] [address] [place], [address] CO2 [Moles/Vol] 28.0 mmol/L Normal 21.0-32.0 [facility] Comment on above: Performed By: #### L 500.2500, [id number] #### [facility] [address] [place], [address] Creatinine [Mass/Vol] 0.98 mg/dL Normal 0.55-1.02 [facility] Comment on above: Result Comment: The validity of the calculated GFR GFRAA in patients over 70 years has not been determined. Clinical correlation is essential. Performed By: #### L 500.2500, L501.5200 #### [facility] [address] [place], [address] EST GFR - AA 70 mL/min Normal >60 [facility] Comment on above: Result Comment: Afri can Malagasy GFR Calc Performed By: #### L 500.2500, [id number] #### [facility] [address] [place], [address] GAP 5 Normal 5-15 [facility] Comment on above: Performed By: #### L 500.2500, [id number] #### [facility] [address] [place], [address] GFR/1.73 sq M.predicted among non-blacks MDRD (S/P/Bld) [Vol rate/Area] 58 mL/min/{1.73_m2} Low >60 [facility] Comment on above: Result Comment: Non- GFR Calc Performed By: #### L 500.2500, L501.5200 #### [facility] [address] [place], [address] Glucose [Mass/Vol] 161 mg/dL High 74-106 [facility] [place] [facility] Comment on above: Result Comment: Fast ing Glucose result greater than or equal to 126 mg/dL suggests DIABETES MELLITUS per A.D.A. criteria. Performed By: #### L 500.2500, L501.5200 #### [facility] [address] [place], [address] Potassium [Moles/Vol] 3.8 mmol/L Normal 3.5-5.1 [facility] Comment on above: Result Comment: Slig ht Hemolysis, Result may be falsely increased. Performed By: #### L 500.2500, L501.5200 #### [facility] [address] [place], [address] Sodium [Moles/Vol] 138 mmol/L Normal 136-145 [facility] [place] [facility] Comment on above: Performed By: #### L 500.2500, [id number] #### [facility] [address] [place], [address] Urea nitrogen [Mass/Vol] 32 mg/dL High 7-18 [facility] Comment on above: Performed By: #### L 500.2500, [id number] #### [facility] [address] [place], [address] Blood urea nitrogen (BUN)/cr eatinine ratioOrdered By: Melissa Reed on 06-13-2024 Urea nitrogen/Creatinine [Mass ratio] 32.6 mg/mg High 10-20 [facility] Carbon dioxide measurementOr dered By: Melissa Reed on 06-13-2024 CO2 [Moles/Vol] 28.0 mmol/L 21.0-32.0 [facility] Chloride measurementOrdered By: Melissa Reed on 06-13-2024 Chloride [Moles/Vol] 105 mmol/L 98-107 [facility] Estimated glomerular filtrat ion rate (GFR) AmericanOrdered By: Melissa Reed on 06-13-2024 Estimated GFR (MDRD) Amer 70 mL/min >60 [facility] Comment on above: GFR Calc Glomerular filtration rate ( GFR) estimationOrdered By: Melissa Reed on 06-13-2024 Estimated GFR (MDRD) Non-Af Amer 58 mL/min Low >60 [facility] Comment on above: Non- GFR Calc Glucose measurementOrdered B y: Melissa Reed on 06-13-2024 Glucose [Mass/Vol] 161 mg/dL High 74-106 [facility] [place] [facility] Comment on above: Fasting Glucose resu lt greater than or equal to 126 mg/dL suggests DIABETES MELLITUS per A.D.A. criteria. Magnesiumon 06-13-2024 Magnesium [Mass/Vol] 2.2 mg/dL Normal 1.6-2.6 [facility] Comment on above: Result Comment: Slig ht Hemolysis, Result may be falsely increased. Performed By: #### L 500.2500, L501.5200 #### [facility] [address] [place], [address] Magnesium measurementOrdered By: Melissa Reed on 06-13-2024 Magnesium [Mass/Vol] 2.2 mg/dL 1.6-2.6 [facility] Comment on above: Slight Hemolysis, Re sult may be falsely increased. Potassium measurementOrdered By: Melissa Reed on 06-13-2024 Potassium [Moles/Vol] 3.8 mmol/L 3.5-5.1 [facility] Comment on above: Slight Hemolysis, Re sult may be falsely increased. Serum anion gap measurementO rdered By: Melissa Reed on 06-13-2024 Anion gap [Moles/Vol] 5 mmol/L 5-15 [facility] Serum or plasma calcium danae urement (mass/volume)Ordered By: Melissa Reed on 06-13-2024 Calcium [Mass/Vol] 8.7 mg/dL 8.5-10.1 [facility] [place] [facility] Serum or plasma creatinine m easurement (mass/volume)Ordered By: Melissa Reed on 06-13-2024 Creatinine [Mass/Vol] 0.98 mg/dL 0.55-1.02 [facility] Comment on above: The validity of the calculated GFR & GFRAA in patients over 70 years has not been determined. Clinical correlation is essential. Serum or plasma urea nitroge n measurement (mass/volume)Ordered By: Melissa Reed on 06-13-2024 Urea nitrogen [Mass/Vol] 32 mg/dL High 7-18 [facility] Sodium levelOrdered By: Rubin Reed on 06-13-2024 Sodium [Moles/Vol] 138 mmol/L 136-145 [facility] [place] [facility] Basic Metabolic Profile (BMP )on 05-29-2024 BUN/CRE 22.1 RATIO High 10-20 [facility] Comment on above: Order Comment: 157 Performed By: #### L 500.2500, L501.5200 #### [facility] [address] [place], [address] CA,Total 8.9 mg/dL Normal 8.5-10.1 [facility] Comment on above: Order Comment: 157 Performed By: #### L 500.2500, L501.5200 #### [facility] [address] [place], [address] Chloride [Moles/Vol] 106 mmol/L Normal 98-107 [facility] Comment on above: Order Comment: 157 Performed By: #### L 500.2500, L501.5200 #### [facility] [address] [place], [address] CO2 [Moles/Vol] 32.0 mmol/L Normal 21.0-32.0 [facility] Comment on above: Order Comment: 157 Performed By: #### L 500.2500, L501.5200 #### [facility] [address] [place], [address] Creatinine [Mass/Vol] 1.31 mg/dL High 0.55-1.02 [facility] Comment on above: Order Comment: 157 Result Comment: The validity of the calculated GFR GFRAA in patients over 70 years has not been determined. Clinical correlation is essential. Performed By: #### L 500.2500, L501.5200 #### [facility] [address] [place], [address] EST GFR - AA 50 mL/min Low >60 [facility] Comment on above: Order Comment: 157 Result Comment: Afri can Malagasy GFR Calc Performed By: #### L 500.2500, L501.5200 #### [facility] [address] [place], [address] GAP 5 Normal 5-15 [facility] Comment on above: Order Comment: 157 Performed By: #### L 500.2500, L501.5200 #### [facility] [address] [place], [address] GFR/1.73 sq M.predicted among non-blacks MDRD (S/P/Bld) [Vol rate/Area] 41 mL/min/{1.73_m2} Low >60 [facility] Comment on above: Order Comment: 157 Result Comment: Non- GFR Calc Performed By: #### L 500.2500, L501.5200 #### [facility] [address] [place], [address] Glucose [Mass/Vol] 116 mg/dL High 74-106 [facility] [place] Comment on above: Order Comment: 157 Result Comment: Fast ing Glucose result from 100 to 125 mg/dL suggests IMPAIRED HOMEOSTASIS per A.D.A. criteria. Performed By: #### L 500.2500, L501.5200 #### [facility] [address] [place], [address] Potassium [Moles/Vol] 3.6 mmol/L Normal 3.5-5.1 [facility] Comment on above: Order Comment: 157 Performed By: #### L 500.2500, L501.5200 #### [facility] [address] [place], [address] Sodium [Moles/Vol] 142 mmol/L Normal 136-145 [facility] [place] [facility] Comment on above: Order Comment: 157 Performed By: #### L 500.2500, L501.5200 #### [facility] [address] [place], [address] Urea nitrogen [Mass/Vol] 29 mg/dL High 7-18 [facility] Comment on above: Order Comment: 157 Performed By: #### L 500.2500, L501.5200 #### [facility] [address] [place], [address] Blood urea nitrogen (BUN)/cr eatinine ratioOrdered By: Melissa Reed on 05-29-2024 Urea nitrogen/Creatinine [Mass ratio] 22.1 mg/mg High 10-20 [facility] Carbon dioxide measurementOr dered By: Melissa Reed on 05-29-2024 CO2 [Moles/Vol] 32.0 mmol/L 21.0-32.0 [facility] Chloride measurementOrdered By: Melissa Reed on 05-29-2024 Chloride [Moles/Vol] 106 mmol/L 98-107 [facility] Estimated glomerular filtrat ion rate (GFR) AmericanOrdered By: Melissa Reed on 05-29-2024 Estimated GFR (MDRD) Amer 50 mL/min Low >60 [facility] Comment on above: GFR Calc Glomerular filtration rate ( GFR) estimationOrdered By: Melissa Reed on 05-29-2024 Estimated GFR (MDRD) Non-Af Amer 41 mL/min Low >60 [facility] Comment on above: Non- GFR Calc Glucose measurementOrdered B y: Melissa Reed on 05-29-2024 Glucose [Mass/Vol] 116 mg/dL High 74-106 [facility] [place] [facility] Comment on above: Fasting Glucose resu lt from 100 to 125 mg/dL suggests IMPAIRED HOMEOSTASIS per A.D.A. criteria. Magnesiumon 05-29-2024 Magnesium [Mass/Vol] 2.0 mg/dL Normal 1.6-2.6 [facility] Comment on above: Order Comment: 157 Performed By: #### L 500.2500, L501.5200 #### [facility] [address] [facility] [place], [address] Magnesium measurementOrdered By: Melissa Reed on 05-29-2024 Magnesium [Mass/Vol] 2.0 mg/dL 1.6-2.6 [facility] Potassium measurementOrdered By: Melissa Reed on 05-29-2024 Potassium [Moles/Vol] 3.6 mmol/L 3.5-5.1 [facility] Serum anion gap measurementO rdered By: Melissa Reed on 05-29-2024 Anion gap [Moles/Vol] 5 mmol/L 5-15 [facility] Serum or plasma calcium danae urement (mass/volume)Ordered By: Melissa Reed on 05-29-2024 Calcium [Mass/Vol] 8.9 mg/dL 8.5-10.1 [facility] [place] [facility] Serum or plasma creatinine m easurement (mass/volume)Ordered By: Melissa Reed on 05-29-2024 Creatinine [Mass/Vol] 1.31 mg/dL High 0.55-1.02 [facility] Comment on above: The validity of the calculated GFR & GFRAA in patients over 70 years has not been determined. Clinical correlation is essential. Serum or plasma urea nitroge n measurement (mass/volume)Ordered By: Melissa Reed on 05-29-2024 Urea nitrogen [Mass/Vol] 29 mg/dL High 7-18 [facility] Sodium levelOrdered By: Rubin Reed on 05-29-2024 Sodium [Moles/Vol] 142 mmol/L 136-145 [facility] [place] [facility] Basic Metabolic Profile (BMP )on 05-15-2024 BUN/CRE 31.1 RATIO High 10-20 [facility] Comment on above: Order Comment: 157 Performed By: #### L 501.5200, L500.2500 #### [facility] [address] [place], [address] CA,Total 8.7 mg/dL Normal 8.5-10.1 [facility] Comment on above: Order Comment: 157 Performed By: #### L 501.5200, L500.2500 #### [facility] [address] [place], [address] Chloride [Moles/Vol] 105 mmol/L Normal 98-107 [facility] Comment on above: Order Comment: 157 Performed By: #### L 501.5200, L500.2500 #### [facility] [address] [place], [address] CO2 [Moles/Vol] 30.0 mmol/L Normal 21.0-32.0 [facility] Comment on above: Order Comment: 157 Performed By: #### L 501.5200, L500.2500 #### [facility] [address] [place], [address] Creatinine [Mass/Vol] 1.06 mg/dL High 0.55-1.02 [facility] Comment on above: Order Comment: 157 Result Comment: The validity of the calculated GFR GFRAA in patients over 70 years has not been determined. Clinical correlation is essential. Performed By: #### L 501.5200, L500.2500 #### [facility] [address] [place], [address] EST GFR - AA 64 mL/min Normal >60 [facility] Comment on above: Order Comment: 157 Result Comment: Afri can Malagasy GFR Calc Performed By: #### L 501.5200, L500.2500 #### [facility] [address] [place], [address] GAP 5 Normal 5-15 [facility] Comment on above: Order Comment: 157 Performed By: #### L 501.5200, L500.2500 #### [facility] [address] [place], [address] GFR/1.73 sq M.predicted among non-blacks MDRD (S/P/Bld) [Vol rate/Area] 53 mL/min/{1.73_m2} Low >60 [facility] Comment on above: Order Comment: 157 Result Comment: Non- GFR Calc Performed By: #### L 501.5200, L500.2500 #### [facility] [address] [place], [address] Glucose [Mass/Vol] 119 mg/dL High 74-106 [facility] [place] [facility] Comment on above: Order Comment: 157 Result Comment: Fast ing Glucose result from 100 to 125 mg/dL suggests IMPAIRED HOMEOSTASIS per A.D.A. criteria. Performed By: #### L 501.5200, L500.2500 #### [facility] [address] [place], [address] Potassium [Moles/Vol] 3.6 mmol/L Normal 3.5-5.1 [facility] Comment on above: Order Comment: 157 Performed By: #### L 501.5200, L500.2500 #### [facility] [address] [place], [address] Sodium [Moles/Vol] 140 mmol/L Normal 136-145 [facility] [place] [facility] Comment on above: Order Comment: 157 Performed By: #### L 501.5200, L500.2500 #### [facility] [address] [place], [address] Urea nitrogen [Mass/Vol] 33 mg/dL High 7-18 [facility] Comment on above: Order Comment: 157 Performed By: #### L 501.5200, L500.2500 #### [facility] [address] [place], [address] Magnesiumon 05-15-2024 Magnesium [Mass/Vol] 2.1 mg/dL Normal 1.6-2.6 [facility] Comment on above: Order Comment: 157 Performed By: #### L 501.5200, L500.2500 #### [facility] [address] [place], [address] Basic Metabolic Profile (BMP )on 05-01-2024 BUN/CRE 21.4 RATIO High 10-20 [facility] Comment on above: Order Comment: CLEAN CATCH Performed By: #### M 100.2200, L400.0001 #### [facility] [address] [place], [address] CA,Total 9.2 mg/dL Normal 8.5-10.1 [facility] Comment on above: Order Comment: CLEAN CATCH Performed By: #### M 100.2200, L400.0001 #### [facility] [address] [place], [address] Chloride [Moles/Vol] 106 mmol/L Normal 98-107 [facility] Comment on above: Order Comment: CLEAN CATCH Performed By: #### M 100.2200, L400.0001 #### [facility] [address] [place], [address] CO2 [Moles/Vol] 27.0 mmol/L Normal 21.0-32.0 [facility] Comment on above: Order Comment: CLEAN CATCH Performed By: #### M 100.2200, L400.0001 #### [facility] [address] [place], [address] Creatinine [Mass/Vol] 1.26 mg/dL High 0.55-1.02 [facility] Comment on above: Order Comment: CLEAN CATCH Result Comment: The validity of the calculated GFR GFRAA in patients over 70 years has not been determined. Clinical correlation is essential. Performed By: #### M 100.2200, L400.0001 #### [facility] [address] [place], [address] EST GFR - AA 53 mL/min Low >60 [facility] Comment on above: Order Comment: CLEAN CATCH Result Comment: Afri can Malagasy GFR Calc Performed By: #### M 100.2200, L400.0001 #### [facility] [address] [place], [address] GAP 7 Normal 5-15 [facility] Comment on above: Order Comment: CLEAN CATCH Performed By: #### M 100.2200, L400.0001 #### [facility] [address] [place], [address] GFR/1.73 sq M.predicted among non-blacks MDRD (S/P/Bld) [Vol rate/Area] 43 mL/min/{1.73_m2} Low >60 [facility] Comment on above: Order Comment: CLEAN CATCH Result Comment: Non- GFR Calc Performed By: #### M 100.2200, L400.0001 #### [facility] [address] [place], [address] Glucose [Mass/Vol] 126 mg/dL High 74-106 [facility] [place] [facility] Comment on above: Order Comment: CLEAN CATCH Result Comment: Fast ing Glucose result greater than or equal to 126 mg/dL suggests DIABETES MELLITUS per A.D.A. criteria. Performed By: #### M 100.2200, L400.0001 #### [facility] [address] [place], [address] Potassium [Moles/Vol] 4.3 mmol/L Normal 3.5-5.1 [facility] Comment on above: Order Comment: CLEAN CATCH Performed By: #### M 100.2200, L400.0001 #### [facility] [address] [place], [address] Sodium [Moles/Vol] 140 mmol/L Normal 136-145 [facility] [place] [facility] Comment on above: Order Comment: CLEAN CATCH Performed By: #### M 100.2200, L400.0001 #### [facility] [address] [place], [address] Urea nitrogen [Mass/Vol] 27 mg/dL High 7-18 [facility] Comment on above: Order Comment: CLEAN CATCH Performed By: #### M 100.2200, L400.0001 #### [facility] [address] [place], [address] Magnesiumon 05-01-2024 Magnesium [Mass/Vol] 2.1 mg/dL Normal 1.6-2.6 [facility] Comment on above: Order Comment: CLEAN CATCH Performed By: #### M 100.2200, L400.0001 #### [facility] [address] [place], [address] 36on 02-05-2024 36 Okay, thank you appreciate her letting us know [facility] 36 We had returned mail on patient---I called her to get her new address. She stated that she is in assisted living at [facility] and will not be a patient at our office. She also wanted Dr. Lopez to know that she appreciates everything that he has done for her over the years. [facility] Progress Noteon 01-03-2024 Progress Note error Normal [facility] Progress Noteon 12-29-2023 Progress Note Please schedule AWV. Normal [facility] Progress Note Called patient---moustapha ne number is not working--sent letter by mail. [facility] 36on 10-27-2023 36 Spoke with jaylon Pascual it was a mistake and he did not need anything for the patient. [facility] 36on 10-26-2023 36 As far as I know she still considers us her primary care however she misses a lot of appointments and cancels at other times. [facility] 36 Name of caller: Ankur Valdivia Contact phone number: [phone] Relationship to Patient: SHIRLEY Nicole Provider: Dr Lopez Practice: [facility] Chief Complaint/Reason for Call: Ankur Skip from [facility] would like to confirm that patient is still being treated at this office. Please advise. Best time of day caller can be reached: any Patient advised that office/PCP has 24-48 business hours to return their call: Yes [facility] Basophil percentageOrdered B y: Melissa Rede on 09-29-2023 Chloride [Moles/Vol] 106 mmol/L 98-107 [facility] Glucose [Mass/Vol] 165 mg/dL 74-106 [facility] [place] [facility] Comment on above: Fasting Glucose resu lt greater than or equal to 126 mg/dL suggests DIABETES MELLITUS per A.D.A. criteria. Potassium [Moles/Vol] 3.5 mmol/L 3.5-5.1 [facility] Sodium [Moles/Vol] 135 mmol/L 136-145 [facility] [place] [facility] - Chemistry and C hemistry - challengeOrdered By: Melissa Reed on 09-29-2023 CO2 [Moles/Vol] 26.0 mmol/L 21.0-32.0 [facility] Urea nitrogen/Creatinine [Mass ratio] 23.7 mg/mg 10-20 [facility] No Panel InformationOrdered By: Melissa Reed on 09-29-2023 Estimated GFR (MDRD) Amer 57 mL/min >60 [facility] Comment on above: GFR Calc Estimated GFR (MDRD) Non-Af Amer 47 mL/min >60 [facility] Comment on above: Non- GFR Calc Serum or plasma calcium danae urement (mass/volume)Ordered By: Melissa Reed on 09-29-2023 Calcium [Mass/Vol] 8.5 mg/dL 8.5-10.1 [facility] [place] [facility] Serum or plasma creatinine m easurement (mass/volume)Ordered By: Melissa Reed on 09-29-2023 Creatinine [Mass/Vol] 1.18 mg/dL 0.55-1.02 [facility] Comment on above: The validity of the calculated GFR & GFRAA in patients over 70 years has not been determined. Clinical correlation is essential. Serum or plasma urea nitroge n measurement (mass/volume)Ordered By: Melissa Reed on 09-29-2023 Urea nitrogen [Mass/Vol] 28 mg/dL 7-18 [facility] Thin prep Papanicolaou smear with manual screeningOrdered By: Melissa Reed on 09-29-2023 Thin prep Papanicolaou smear with manual screening 3 5-15 [facility] Basophil percentageOrdered B y: Melissa Reed on 09-14-2023 Chloride [Moles/Vol] 106 mmol/L 98-107 [facility] Glucose [Mass/Vol] 191 mg/dL 74-106 [facility] [place] [facility] Comment on above: Fasting Glucose resu lt greater than or equal to 126 mg/dL suggests DIABETES MELLITUS per A.D.A. criteria. Potassium [Moles/Vol] 3.8 mmol/L 3.5-5.1 [facility] Sodium [Moles/Vol] 138 mmol/L 136-145 [facility] [place] [facility] - Chemistry and C hemistry - challengeOrdered By: Melissa Reed on 09-14-2023 CO2 [Moles/Vol] 29.0 mmol/L 21.0-32.0 [facility] Urea nitrogen/Creatinine [Mass ratio] 17.8 mg/mg 10-20 [facility] No Panel InformationOrdered By: Melissa Reed on 09-14-2023 Estimated GFR (MDRD) Amer 63 mL/min >60 [facility] Comment on above: GFR Calc Estimated GFR (MDRD) Non-Af Amer 52 mL/min >60 [facility] Comment on above: Non- GFR Calc Serum or plasma calcium danae urement (mass/volume)Ordered By: Melissa Reed on 09-14-2023 Calcium [Mass/Vol] 8.7 mg/dL 8.5-10.1 [facility] [place] [facility] Serum or plasma creatinine m easurement (mass/volume)Ordered By: Melissa Reed on 09-14-2023 Creatinine [Mass/Vol] 1.07 mg/dL 0.55-1.02 [facility] Comment on above: The validity of the calculated GFR & GFRAA in patients over 70 years has not been determined. Clinical correlation is essential. Serum or plasma urea nitroge n measurement (mass/volume)Ordered By: Melissa Reed on 09-14-2023 Urea nitrogen [Mass/Vol] 19 mg/dL 7-18 [facility] Thin prep Papanicolaou smear with manual screeningOrdered By: Melissa Reed on 09-14-2023 Thin prep Papanicolaou smear with manual screening 3 5-15 [facility] Basophil percentageOrdered B y: Melissa Reed on 08-31-2023 Chloride [Moles/Vol] 104 mmol/L 98-107 [facility] Glucose [Mass/Vol] 169 mg/dL 74-106 [facility] [place] [facility] Comment on above: Fasting Glucose resu lt greater than or equal to 126 mg/dL suggests DIABETES MELLITUS per A.D.A. criteria. Potassium [Moles/Vol] 3.6 mmol/L 3.5-5.1 [facility] Sodium [Moles/Vol] 140 mmol/L 136-145 [facility] [place] [facility] - Chemistry and C hemistry - challengeOrdered By: Melissa Reed on 08-31-2023 CO2 [Moles/Vol] 30.0 mmol/L 21.0-32.0 [facility] Urea nitrogen/Creatinine [Mass ratio] 20.3 mg/mg 10-20 [facility] No Panel InformationOrdered By: Melissa Reed on 08-31-2023 Estimated GFR (MDRD) Amer 57 mL/min >60 [facility] Comment on above: GFR Calc Estimated GFR (MDRD) Non-Af Amer 47 mL/min >60 [facility] Comment on above: Non- GFR Calc Serum or plasma calcium danae urement (mass/volume)Ordered By: Melissa Reed on 08-31-2023 Calcium [Mass/Vol] 8.9 mg/dL 8.5-10.1 [facility] [place] [facility] Serum or plasma creatinine m easurement (mass/volume)Ordered By: Melissa Reed on 08-31-2023 Creatinine [Mass/Vol] 1.18 mg/dL 0.55-1.02 [facility] Comment on above: The validity of the calculated GFR & GFRAA in patients over 70 years has not been determined. Clinical correlation is essential. Serum or plasma urea nitroge n measurement (mass/volume)Ordered By: Melissa Reed on 08-31-2023 Urea nitrogen [Mass/Vol] 24 mg/dL 7-18 [facility] Thin prep Papanicolaou smear with manual screeningOrdered By: Melissa Reed on 08-31-2023 Thin prep Papanicolaou smear with manual screening 6 5-15 [facility] Basophil percentageOrdered B y: Melissa Reed on 08-17-2023 Chloride [Moles/Vol] 105 mmol/L 98-107 [facility] Glucose [Mass/Vol] 192 mg/dL 74-106 [facility] [place] [facility] Comment on above: Fasting Glucose resu lt greater than or equal to 126 mg/dL suggests DIABETES MELLITUS per A.D.A. criteria. Potassium [Moles/Vol] 3.8 mmol/L 3.5-5.1 [facility] Sodium [Moles/Vol] 138 mmol/L 136-145 [facility] [place] [facility] - Chemistry and C hemistry - challengeOrdered By: Melissa Reed on 08-17-2023 CO2 [Moles/Vol] 29.0 mmol/L 21.0-32.0 [facility] Urea nitrogen/Creatinine [Mass ratio] 22.8 mg/mg 10-20 [facility] No Panel InformationOrdered By: Melissa Reed on 08-17-2023 Estimated GFR (MDRD) Amer 59 mL/min >60 [facility] Comment on above: GFR Calc Estimated GFR (MDRD) Non-Af Amer 49 mL/min >60 [facility] Comment on above: Non- GFR Calc Serum or plasma calcium danae urement (mass/volume)Ordered By: Melissa Reed on 08-17-2023 Calcium [Mass/Vol] 8.8 mg/dL 8.5-10.1 [facility] [place] [facility] Serum or plasma creatinine m easurement (mass/volume)Ordered By: Melissa Reed on 08-17-2023 Creatinine [Mass/Vol] 1.14 mg/dL 0.55-1.02 [facility] Comment on above: The validity of the calculated GFR & GFRAA in patients over 70 years has not been determined. Clinical correlation is essential. Serum or plasma urea nitroge n measurement (mass/volume)Ordered By: Melissa Reed on 08-17-2023 Urea nitrogen [Mass/Vol] 26 mg/dL 7-18 [facility] Thin prep Papanicolaou smear with manual screeningOrdered By: Melissa Reed on 08-17-2023 Thin prep Papanicolaou smear with manual screening 4 5-15 [facility] Basophil percentageOrdered B y: Melissa Reed on 08-14-2023 Chloride [Moles/Vol] 104 mmol/L 98-107 [facility] Glucose [Mass/Vol] 146 mg/dL 74-106 [facility] [place] [facility] Comment on above: Fasting Glucose resu lt greater than or equal to 126 mg/dL suggests DIABETES MELLITUS per A.D.A. criteria. Potassium [Moles/Vol] 3.4 mmol/L 3.5-5.1 [facility] Sodium [Moles/Vol] 138 mmol/L 136-145 [facility] [place] [facility] - Chemistry and C hemistry - challengeOrdered By: Melissa Reed on 08-14-2023 CO2 [Moles/Vol] 29.0 mmol/L 21.0-32.0 [facility] Urea nitrogen/Creatinine [Mass ratio] 24.8 mg/mg 10-20 [facility] No Panel InformationOrdered By: Melissa Reed on 08-14-2023 Estimated GFR (MDRD) Amer 60 mL/min >60 [facility] Comment on above: GFR Calc Estimated GFR (MDRD) Non-Af Amer 49 mL/min >60 [facility] Comment on above: Non- GFR Calc Serum or plasma calcium danae urement (mass/volume)Ordered By: Melissa Reed on 08-14-2023 Calcium [Mass/Vol] 9.1 mg/dL 8.5-10.1 [facility] [place] [facility] Serum or plasma creatinine m easurement (mass/volume)Ordered By: Melissa Reed on 08-14-2023 Creatinine [Mass/Vol] 1.13 mg/dL 0.55-1.02 [facility] Comment on above: The validity of the calculated GFR & GFRAA in patients over 70 years has not been determined. Clinical correlation is essential. Serum or plasma urea nitroge n measurement (mass/volume)Ordered By: Melissa Reed on 08-14-2023 Urea nitrogen [Mass/Vol] 28 mg/dL 7-18 [facility] Thin prep Papanicolaou smear with manual screeningOrdered By: Melissa Reed on 08-14-2023 Thin prep Papanicolaou smear with manual screening 5 5-15 [facility] Basophil percentageOrdered B y: Melissa Reed on 07-31-2023 Chloride [Moles/Vol] 107 mmol/L 98-107 [facility] Glucose [Mass/Vol] 149 mg/dL 74-106 [facility] [place] [facility] Comment on above: Fasting Glucose resu lt greater than or equal to 126 mg/dL suggests DIABETES MELLITUS per A.D.A. criteria. Potassium [Moles/Vol] 3.4 mmol/L 3.5-5.1 [facility] Sodium [Moles/Vol] 142 mmol/L 136-145 [facility] [place] [facility] - Chemistry and C hemistry - challengeOrdered By: Melissa Reed on 07-31-2023 CO2 [Moles/Vol] 30.0 mmol/L 21.0-32.0 [facility] Urea nitrogen/Creatinine [Mass ratio] 21.7 mg/mg 10-20 [facility] [facility] No Panel InformationOrdered By: Melissa Reed on 07-31-2023 Estimated GFR (MDRD) Amer 64 mL/min >60 [facility] Comment on above: GFR Calc Estimated GFR (MDRD) Non-Af Amer 53 mL/min >60 [facility] Comment on above: Non- GFR Calc Serum or plasma calcium danae urement (mass/volume)Ordered By: Melissa Reed on 07-31-2023 Calcium [Mass/Vol] 8.7 mg/dL 8.5-10.1 [facility] Serum or plasma creatinine m easurement (mass/volume)Ordered By: Melissa Reed on 07-31-2023 Creatinine [Mass/Vol] 1.06 mg/dL 0.55-1.02 [facility] Comment on above: The validity of the calculated GFR & GFRAA in patients over 70 years has not been determined. Clinical correlation is essential. Serum or plasma urea nitroge n measurement (mass/volume)Ordered By: Melissa Reed on 07-31-2023 Urea nitrogen [Mass/Vol] 23 mg/dL 7-18 [facility] Thin prep Papanicolaou smear with manual screeningOrdered By: Melissa Reed on 07-31-2023 Thin prep Papanicolaou smear with manual screening 5 5-15 [facility] Basophil percentageOrdered B y: Melissa Reed on 07-17-2023 Chloride [Moles/Vol] 106 mmol/L 98-107 [facility] Glucose [Mass/Vol] 141 mg/dL 74-106 [facility] Comment on above: Fasting Glucose resu lt greater than or equal to 126 mg/dL suggests DIABETES MELLITUS per A.D.A. criteria. Potassium [Moles/Vol] 4.0 mmol/L 3.5-5.1 [facility] Comment on above: Moderate Hemolysis, Result may be falsely increased. Sodium [Moles/Vol] 137 mmol/L 136-145 [facility] Laboratory - Chemistry and C hemistry - challengeOrdered By: Melissa Reed on 07-17-2023 CO2 [Moles/Vol] 29.0 mmol/L 21.0-32.0 [facility] Urea nitrogen/Creatinine [Mass ratio] 22.6 mg/mg 10-20 [facility] No Panel InformationOrdered By: Melissa Reed on 07-17-2023 Estimated GFR (MDRD) Amer 58 mL/min >60 [facility] Comment on above: GFR Calc Estimated GFR (MDRD) Non-Af Amer 48 mL/min >60 [facility] Comment on above: Non- GFR Calc Serum or plasma calcium danae urement (mass/volume)Ordered By: Melissa Reed on 07-17-2023 Calcium [Mass/Vol] 9.3 mg/dL 8.5-10.1 [facility] Serum or plasma creatinine m easurement (mass/volume)Ordered By: Melissa Reed on 07-17-2023 Creatinine [Mass/Vol] 1.15 mg/dL 0.55-1.02 [facility] Comment on above: The validity of the calculated GFR & GFRAA in patients over 70 years has not been determined. Clinical correlation is essential. Serum or plasma urea nitroge n measurement (mass/volume)Ordered By: Melissa Reed on 07-17-2023 Urea nitrogen [Mass/Vol] 26 mg/dL 7-18 [facility] Thin prep Papanicolaou smear with manual screeningOrdered By: Melissa Reed on 07-17-2023 Thin prep Papanicolaou smear with manual screening 2 5-15 [facility] Basophil percentageOrdered B y: Melissa Reed on 07-03-2023 Chloride [Moles/Vol] 106 mmol/L 98-107 [facility] Glucose [Mass/Vol] 134 mg/dL 74-106 [facility] Comment on above: Fasting Glucose resu lt greater than or equal to 126 mg/dL suggests DIABETES MELLITUS per A.D.A. criteria. Potassium [Moles/Vol] 4.0 mmol/L 3.5-5.1 [facility] Sodium [Moles/Vol] 140 mmol/L 136-145 [facility] Laboratory - Chemistry and C hemistry - challengeOrdered By: Melissa Reed on 07-03-2023 CO2 [Moles/Vol] 28.0 mmol/L 21.0-32.0 [facility] Urea nitrogen/Creatinine [Mass ratio] 20.5 mg/mg 10-20 [facility] No Panel InformationOrdered By: Melissa Reed on 07-03-2023 Estimated GFR (MDRD) Amer 71 mL/min >60 [facility] Comment on above: GFR Calc Estimated GFR (MDRD) Non-Af Amer 58 mL/min >60 [facility] Comment on above: Non- GFR Calc Serum or plasma calcium danae urement (mass/volume)Ordered By: Melissa Reed on 07-03-2023 Calcium [Mass/Vol] 8.6 mg/dL 8.5-10.1 [facility] Serum or plasma creatinine m easurement (mass/volume)Ordered By: Melissa Reed on 07-03-2023 Creatinine [Mass/Vol] 0.98 mg/dL 0.55-1.02 [facility] Comment on above: The validity of the calculated GFR & GFRAA in patients over 70 years has not been determined. Clinical correlation is essential. Serum or plasma urea nitroge n measurement (mass/volume)Ordered By: Melissa Reed on 07-03-2023 Urea nitrogen [Mass/Vol] 20 mg/dL 7-18 [facility] Thin prep Papanicolaou smear with manual screeningOrdered By: Melissa Reed on 07-03-2023 Thin prep Papanicolaou smear with manual screening 6 -15 [facility] Culture, urineOrdered By: Sd Reed on 06-23-2023 Bacteria identified Cx Nom (U) ESBL Escherichia coli [facility] Progress Noteon 06-23-2023 Progress Note EMR reviewed. The patient was at [facility] for several weeks after a hospitalization. [facility] called and spoke with a staff member today and the patient was discharged to the [facility] living facility. PMH: RLS, HTN, GI-BLEED, CKD3, DM2, HYPOTHYROID, ANXIETY, DEPRESSION, HYPOKALEMIA, HYPERLIPIDEMIA HTN MEDS: AMLODIPINE 10MG DAILY SHE STATED THE NURSE HAS BEEN CHECKING HER BP'S 3 TIMES DAILY DM MEDS: LANTUS INSULIN 19 UNITS DAILY HUMALOG INSULIN 10 UNITS 3 TIMES DAILY WITH MEALS [id number] ON 03/01/23 THE PATIENT STATED SHE IS [...] IS NOW SEEING THE DOCTOR AT THE [facility]. SDOH COMPLETED. CM WILL DISCHARGE THE PATIENT FROM THE [facility] OR MUSEUM CURATOR MGMT. PROGRAM DUE TO PCP CHANGING. Normal [facility] Absolute lymphocyte countOrd ered By: Melissa Reed on 06-20-2023 Lymphocytes Auto (Unsp spec) [#/Vol] 1.72 10*3/uL 0.83-4.51 [facility] Basophil percentageOrdered B y: Melissa Reed on 06-20-2023 Basophils/100 WBC (Bld) 1.0 % 0-1 [facility] Chloride [Moles/Vol] 108 mmol/L 98-107 [facility] Eosinophils/100 WBC (Bld) 7.8 % 0-5 [facility] Glucose [Mass/Vol] 155 mg/dL 74-106 [facility] Comment on above: Fasting Glucose resu lt greater than or equal to 126 mg/dL suggests DIABETES MELLITUS per A.D.A. criteria. Neutrophils (Bld) [#/Vol] 5.3 10*3/uL 2.0-7.7 [facility] Neutrophils/100 WBC (Bld) 61.1 % 47-70 [facility] Potassium [Moles/Vol] 4.0 mmol/L 3.5-5.1 [facility] Sodium [Moles/Vol] 140 mmol/L 136-145 [facility] WBC (Bld) [#/Vol] 8.6 10*3/uL 4.4-11.0 [facility] Blood erythrocytes count (nu mber/volume)Ordered By: Melissa Reed on 06-20-2023 RBC (Bld) [#/Vol] 3.97 10*6/uL 4.2-5.4 [facility] Blood hemoglobin measurement (mass/volume)Ordered By: Melissa Reed on 06-20-2023 Hemoglobin (Bld) [Mass/Vol] 11.0 g/dL 12.0-15.0 [facility] Blood lymphocytes/100 leukoc ytesOrdered By: Melissa Reed on 06-20-2023 Lymphocytes/100 WBC (Bld) 20.0 % 19-41 [facility] Blood monocytes/100 leukocyt esOrdered By: Melissa Reed on 06-20-2023 Monocytes/100 WBC (Bld) 9.9 % 0-10 [facility] Blood platelet mean volumeOr dered By: Melissa Reed on 06-20-2023 Platelet mean volume (Bld) [Entitic vol] 9.9 fL 6.2-12.0 [facility] Determination of erythrocyte mean corpuscular volume (MCV)Ordered By: Melissa Reed on 06-20-2023 MCV (RBC) [Entitic vol] 93.2 fL 81-99 [facility] Hematocrit Auto (Bld) [Volum e fraction]Ordered By: Melissa Reed on 06-20-2023 Hematocrit (Bld) [Volume fraction] 37.0 % 37-47 [facility] Laboratory - Chemistry and C hemistry - challengeOrdered By: Melissa Reed on 06-20-2023 CO2 [Moles/Vol] 30.0 mmol/L 21.0-32.0 [facility] Cobalamin (Vitamin B12) [Mass/Vol] 430 pg/mL 211-911 [facility] Magnesium [Mass/Vol] 2.0 mg/dL 1.6-2.6 [facility] Urea nitrogen/Creatinine [Mass ratio] 19.8 mg/mg 10-20 [facility] Laboratory - Hematology and Cell countsOrdered By: Melissa Reed on 06-20-2023 Erythrocyte distribution width (RBC) [Entitic vol] 48.2 fL 35.1-43.9 [facility] Erythrocyte distribution width (RBC) [Ratio] 14.2 % 11.6-14.6 [facility] Immature granulocytes/100 WBC (Bld) 0.200 % 0.0-0.9 [facility] Comment on above: IG% - Immature Granu locytes (promyelocytes, myelocytes and metamyelocytes) > 1% indicates that a LEFT SHIFT is Present. MCH (RBC) [Entitic mass] 27.7 pg 27.0-32.0 [facility] Nucleated RBC/100 WBC (Bld) [Ratio] 0 % 0-5 [facility] MCHC Auto (RBC) [Mass/Vol]Or dered By: Melissa Reed on 06-20-2023 MCHC (RBC) [Mass/Vol] 29.7 g/dL 32-36 [facility] No Panel InformationOrdered By: Melissa Reed on 06-20-2023 Estimated GFR (MDRD) Amer 72 mL/min >60 [facility] Comment on above: GFR Calc Estimated GFR (MDRD) Non-Af Amer 60 mL/min >60 [facility] Comment on above: Non- GFR Calc Thyroid Stimulating Hormone (TSH) 1.57 uIU/mL 0.358-3.74 [facility] Vitamin D 25-Hydroxy 60.6 ng/mL [facility] Comment on above: Vitamin D 25(OH) Sta tus Range Deficiency <20 ng/mL (50nmol/L) Insufficiency 20 - 30 ng/mL (50 - 75 nmol/L) Sufficiency 30 - 100 ng/mL (75 - 250 nmol/L) Toxicity >100 ng/mL (>250 nmol/L) Platelets bldOrdered By: Lillian Reed on 06-20-2023 Platelets (Bld) [#/Vol] 317 10*3/uL 150-450 [facility] Serum or plasma calcium danae urement (mass/volume)Ordered By: Melissa Reed on 06-20-2023 Calcium [Mass/Vol] 8.8 mg/dL 8.5-10.1 [facility] Serum or plasma creatinine m easurement (mass/volume)Ordered By: Melissa Reed on 06-20-2023 Creatinine [Mass/Vol] 0.96 mg/dL 0.55-1.02 [facility] Comment on above: The validity of the calculated GFR & GFRAA in patients over 70 years has not been determined. Clinical correlation is essential. Serum or plasma urea nitroge n measurement (mass/volume)Ordered By: Melissa Reed on 06-20-2023 Urea nitrogen [Mass/Vol] 19 mg/dL 7-18 [facility] Thin prep Papanicolaou smear with manual screeningOrdered By: Melissa Reed on 06-20-2023 Thin prep Papanicolaou smear with manual screening 2 5-15 [facility] Whole blood hemoglobin A1c/t otal hemoglobin ratio (mass fraction)Ordered By: Melissa Reed on 06-20-2023 HbA1c (Bld) [Mass fraction] 6.4 % 3.8-5.6 [facility] Comment on above: Normal < 5.7 % Predi abetic 5.7 - 6.4 % Diabetic >or= 6.5 % Please note range changes. Progress Noteon 06-07-2023 Progress Note CM called and spoke with a staff member at [facility]. The patient is still at the facility. CM will follow-up with the patient once she is discharged to home. Normal [facility] Culture, urineOrdered By: Anastasia Olvera on 05-10-2023 Bacteria identified Cx Nom (U) Klebsiella pneumoniae sp pneum [facility] Bacteria identified Cx Nom (U) Klebsiella pneumoniae sp pneum [facility] No Panel InformationOrdered By: Lambert Olvera on 05-01-2023 Thyroid Stimulating Hormone (TSH) 1.91 uIU/mL 0.358-3.74 [facility] Progress Noteon 04-06-2023 Progress Note EMR REVIEWED. [...] was discharged. RECOMMENDED NEXT STEPS: Transferred to [facility]. Continue close monitoring of BG. Avoid nephrotoxins/NSAIDS/bela inh. Levothroid dose decreased. Apresoline started. PMH: RLS, HTN, GI-BLEED, CKD3, DM2, HYPOTHYROID, ANXIETY, DEPRESSION, HYPOKALEMIA, HYPERLIPIDEMIA FOLLOW-UP APPTS: 04/27/23-FAMILY MEDICINE HTN MEDS: AMLODIPINE 10MG DAILY HYDRALAZINE 25MG THREE TIMES DAILY ?CHECKING BP'S DM MEDS: LANTUS INSULIN 19 UNITS DAILY HUMALOG INSULIN 10 UNITS WITH MEALS [id number] ON 03/01/23 ?MONITORING BLOOD SUGARS CM CALLED AND SPOKE WITH THE PT'S SON-MAXIMINO. HE STATED THE PT. IS CURRENTLY ADMITTED TO [facility]. HE STATED THE PT. WILL PROBABLY BE GOING TO AN ASSISTED LIVING FACILITY WHEN SHE IS DISCHARGED DUE TO THE PT. NOT BEING ABLE TO CARE FOR HERSELF ALONE AT HOME. CM WILL FOLLOW-UP WITH THE PT. ONCE SHE IS DISCHARGED FROM SNF. Normal [facility] Basophil percentageOrdered B y: Lambert Olvera on 04-04-2023 Bilirubin [Mass/Vol] 0.30 mg/dL 0.20-1.00 [facility] Comment on above: For patients on eltr ombopag therapy, use of Dimension [place] TBIL is not recommended. Chloride [Moles/Vol] 109 mmol/L 98-107 [facility] Glucose [Mass/Vol] 112 mg/dL 74-106 [facility] Comment on above: Fasting Glucose resu lt from 100 to 125 mg/dL suggests IMPAIRED HOMEOSTASIS per A.D.A. criteria. Potassium [Moles/Vol] 4.2 mmol/L 3.5-5.1 [facility] Protein [Mass/Vol] 6.5 g/dL 6.4-8.2 [facility] Sodium [Moles/Vol] 140 mmol/L 136-145 [facility] WBC (Bld) [#/Vol] 8.5 10*3/uL 4.4-11.0 [facility] Blood erythrocytes count (nu mber/volume)Ordered By: Lambert Olvera on 04-04-2023 RBC (Bld) [#/Vol] 4.34 10*6/uL 4.2-5.4 [facility] Blood hemoglobin measurement (mass/volume)Ordered By: Lambert Olvera on 04-04-2023 Hemoglobin (Bld) [Mass/Vol] 11.9 g/dL 12.0-15.0 [facility] Blood platelet mean volumeOr dered By: Lambert Olvera on 04-04-2023 Platelet mean volume (Bld) [Entitic vol] 10.4 fL 6.2-12.0 [facility] Determination of erythrocyte mean corpuscular volume (MCV)Ordered By: Lambert Olvera on 04-04-2023 MCV (RBC) [Entitic vol] 91.9 fL 81-99 [facility] Hematocrit Auto (Bld) [Volum e fraction]Ordered By: Lambert Olvera on 04-04-2023 Hematocrit (Bld) [Volume fraction] 39.9 % 37-47 [facility] Laboratory - Chemistry and C hemistry - challengeOrdered By: Lambert Olvera on 04-04-2023 ALP [Catalytic activity/Vol] 96 U/L 45-117 [facility] ALT [Catalytic activity/Vol] 28 U/L 13-56 [facility] CO2 [Moles/Vol] 27.0 mmol/L 21.0-32.0 [facility] Globulin (S) [Mass/Vol] 3.7 g/dL 2.2-4.2 [facility] Urea nitrogen/Creatinine [Mass ratio] 21.8 mg/mg 10-20 [facility] Laboratory - Hematology and Cell countsOrdered By: Lambert Olvera on 04-04-2023 Erythrocyte distribution width (RBC) [Entitic vol] 47.0 fL 35.1-43.9 [facility] Erythrocyte distribution width (RBC) [Ratio] 13.9 % 11.6-14.6 [facility] MCH (RBC) [Entitic mass] 27.4 pg 27.0-32.0 [facility] MCHC Auto (RBC) [Mass/Vol]Or dered By: Lambert Olvera on 04-04-2023 MCHC (RBC) [Mass/Vol] 29.8 g/dL 32-36 [facility] No Panel InformationOrdered By: Lambert Olvera on 04-04-2023 Estimated GFR (MDRD) Amer 76 mL/min >60 [facility] Comment on above: GFR Calc Estimated GFR (MDRD) Non-Af Amer 63 mL/min >60 [facility] Comment on above: Non- GFR Calc Platelets bldOrdered By: Lisa Olvera on 04-04-2023 Platelets (Bld) [#/Vol] 315 10*3/uL 150-450 [facility] Serum or plasma albumin danae urement (mass/volume)Ordered By: Lambert Olvera on 04-04-2023 Albumin [Mass/Vol] 2.8 g/dL 3.2-5.0 [facility] Serum or plasma albumin/glob ulin mass ratioOrdered By: Lambert Olvera on 04-04-2023 Albumin/Globulin [Mass ratio] 0.8 {ratio} 0.9-2.4 [facility] Serum or plasma calcium danae urement (mass/volume)Ordered By: Lambert Olvera on 04-04-2023 Calcium [Mass/Vol] 8.6 mg/dL 8.5-10.1 [facility] Serum or plasma creatinine m easurement (mass/volume)Ordered By: Lambert Olvera on 04-04-2023 Creatinine [Mass/Vol] 0.92 mg/dL 0.55-1.02 [facility] Comment on above: The validity of the calculated GFR & GFRAA in patients over 70 years has not been determined. Clinical correlation is essential. Serum or plasma urea nitroge n measurement (mass/volume)Ordered By: Lambert Olvera on 04-04-2023 Urea nitrogen [Mass/Vol] 20 mg/dL 7-18 [facility] Thin prep Papanicolaou smear with manual screeningOrdered By: Lambert Olvera on 04-04-2023 Thin prep Papanicolaou smear with manual screening 20 U/L 15-37 [facility] Thin prep Papanicolaou smear with manual screening 4 5-15 [facility] Progress Noteon 03-31-2023 Progress Note THE PT. WAS IDENTIFI ED BY [facility] RN FROM THE [facility] REPORT. CM WILL CONTINUE TO FOLLOW-UP WITH THE PT. FOR ANY ONGOING CM NEEDS. Normal [facility] Basophil percentageOrdered B y: Lambert Olvera on 03-20-2023 Chloride [Moles/Vol] 105 mmol/L 98-107 [facility] Glucose [Mass/Vol] 103 mg/dL 74-106 [facility] Comment on above: Fasting Glucose resu lt from 100 to 125 mg/dL suggests IMPAIRED HOMEOSTASIS per A.D.A. criteria. Potassium [Moles/Vol] 3.7 mmol/L 3.5-5.1 [facility] Sodium [Moles/Vol] 138 mmol/L 136-145 [facility] WBC (Bld) [#/Vol] 8.0 10*3/uL 4.4-11.0 [facility] Blood erythrocytes count (nu mber/volume)Ordered By: Lambert Olvera on 03-20-2023 RBC (Bld) [#/Vol] 3.75 10*6/uL 4.2-5.4 [facility] Blood hemoglobin measurement (mass/volume)Ordered By: Lambert Olvera on 03-20-2023 Hemoglobin (Bld) [Mass/Vol] 10.3 g/dL 12.0-15.0 [facility] Blood platelet mean volumeOr dered By: Lambert Olvera on 03-20-2023 Platelet mean volume (Bld) [Entitic vol] 10.5 fL 6.2-12.0 [facility] Determination of erythrocyte mean corpuscular volume (MCV)Ordered By: Lambert Olvera on 03-20-2023 MCV (RBC) [Entitic vol] 91.7 fL 81-99 [facility] Hematocrit Auto (Bld) [Volum e fraction]Ordered By: Lambert Olvera on 03-20-2023 Hematocrit (Bld) [Volume fraction] 34.4 % 37-47 [facility] Laboratory - Chemistry and C hemistry - challengeOrdered By: Lambert Olvera on 03-20-2023 CO2 [Moles/Vol] 30.0 mmol/L 21.0-32.0 [facility] Urea nitrogen/Creatinine [Mass ratio] 24.2 mg/mg 10-20 [facility] Laboratory - Hematology and Cell countsOrdered By: Lambert Olvera on 03-20-2023 Erythrocyte distribution width (RBC) [Entitic vol] 45.7 fL 35.1-43.9 [facility] Erythrocyte distribution width (RBC) [Ratio] 13.4 % 11.6-14.6 [facility] MCH (RBC) [Entitic mass] 27.5 pg 27.0-32.0 [facility] MCHC Auto (RBC) [Mass/Vol]Or dered By: Lambert Olvera on 03-20-2023 MCHC (RBC) [Mass/Vol] 29.9 g/dL 32-36 [facility] No Panel InformationOrdered By: Lambert Olvera on 03-20-2023 Estimated GFR (MDRD) Amer 70 mL/min >60 [facility] Comment on above: GFR Calc Estimated GFR (MDRD) Non-Af Amer 57 mL/min >60 [facility] Comment on above: Non- GFR Calc Thyroid Stimulating Hormone (TSH) 0.04 uIU/mL 0.358-3.74 [facility] Platelets bldOrdered By: Lisa Olvera on 03-20-2023 Platelets (Bld) [#/Vol] 333 10*3/uL 150-450 [facility] Serum or plasma calcium danae urement (mass/volume)Ordered By: Lambert Olvera on 03-20-2023 Calcium [Mass/Vol] 8.4 mg/dL 8.5-10.1 [facility] Serum or plasma creatinine m easurement (mass/volume)Ordered By: Lambert Olvera on 03-20-2023 Creatinine [Mass/Vol] 0.99 mg/dL 0.55-1.02 [facility] Comment on above: The validity of the calculated GFR & GFRAA in patients over 70 years has not been determined. Clinical correlation is essential. Serum or plasma urea nitroge n measurement (mass/volume)Ordered By: Lambert Olvera on 03-20-2023 Urea nitrogen [Mass/Vol] 24 mg/dL 7-18 [facility] Thin prep Papanicolaou smear with manual screeningOrdered By: Lambert Olvera on 03-20-2023 Thin prep Papanicolaou smear with manual screening 3 5-15 [facility] Absolute lymphocyte countOrd ered By: Baljit Jaffe on 03-18-2023 Lymphocytes Auto (Unsp spec) [#/Vol] 1.42 10*3/uL 0.83-4.51 [facility] Basophil percentageOrdered B y: Baljit Jaffe on 03-18-2023 Basophils/100 WBC (Bld) 0.6 % 0-1 [facility] Chloride [Moles/Vol] 106 mmol/L 98-107 [facility] Eosinophils/100 WBC (Bld) 5.2 % 0-5 [facility] Glucose [Mass/Vol] 111 mg/dL 74-106 [facility] Comment on above: Fasting Glucose resu lt from 100 to 125 mg/dL suggests IMPAIRED HOMEOSTASIS per A.D.A. criteria. Neutrophils (Bld) [#/Vol] 5.0 10*3/uL 2.0-7.7 [facility] Neutrophils/100 WBC (Bld) 65.0 % 47-70 [facility] Potassium [Moles/Vol] 3.7 mmol/L 3.5-5.1 [facility] Sodium [Moles/Vol] 138 mmol/L 136-145 [facility] WBC (Bld) [#/Vol] 7.8 10*3/uL 4.4-11.0 [facility] Blood erythrocytes count (nu mber/volume)Ordered By: Baljit Jaffe on 03-18-2023 RBC (Bld) [#/Vol] 3.84 10*6/uL 4.2-5.4 [facility] Blood hemoglobin measurement (mass/volume)Ordered By: Baljit Jaffe on 03-18-2023 Hemoglobin (Bld) [Mass/Vol] 10.8 g/dL 12.0-15.0 [facility] Blood lymphocytes/100 leukoc ytesOrdered By: Baljit Jaffe on 03-18-2023 Lymphocytes/100 WBC (Bld) 18.3 % 19-41 [facility] Blood monocytes/100 leukocyt esOrdered By: Baljit Jaffe on 03-18-2023 Monocytes/100 WBC (Bld) 10.6 % 0-10 [facility] Blood platelet mean volumeOr dered By: Baljit Jaffe on 03-18-2023 Platelet mean volume (Bld) [Entitic vol] 9.9 fL 6.2-12.0 [facility] Determination of erythrocyte mean corpuscular volume (MCV)Ordered By: Baljit Jaffe on 03-18-2023 MCV (RBC) [Entitic vol] 90.6 fL 81-99 [facility] Glucose Glucometer (dC) [M ass/Vol]Ordered By: Baljit Jaffe on 03-18-2023 Glucose [Mass/Vol] 111 mg/dL 74-106 [facility] Comment on above: MANAGEMENT OF PATIEN T CARE PER NURSING PROTOCOL Hematocrit Auto (Bld) [Volum e fraction]Ordered By: Baljit Jaffe on 03-18-2023 Hematocrit (Bld) [Volume fraction] 34.8 % 37-47 [facility] Laboratory - Chemistry and C hemistry - challengeOrdered By: Baljit Jaffe on 03-18-2023 CO2 [Moles/Vol] 27.0 mmol/L 21.0-32.0 [facility] Urea nitrogen/Creatinine [Mass ratio] 30.8 mg/mg 10-20 [facility] Laboratory - Hematology and Cell countsOrdered By: Baljit Jaffe on 03-18-2023 Erythrocyte distribution width (RBC) [Entitic vol] 44.9 fL 35.1-43.9 [facility] Erythrocyte distribution width (RBC) [Ratio] 13.4 % 11.6-14.6 [facility] Immature granulocytes/100 WBC (Bld) 0.300 % 0.0-0.9 [facility] Comment on above: IG% - Immature Granu locytes (promyelocytes, myelocytes and metamyelocytes) > 1% indicates that a LEFT SHIFT is Present. MCH (RBC) [Entitic mass] 28.1 pg 27.0-32.0 [facility] Nucleated RBC/100 WBC (Bld) [Ratio] 0 % 0-5 [facility] MCHC Auto (RBC) [Mass/Vol]Or dered By: Baljit Jaffe on 03-18-2023 MCHC (RBC) [Mass/Vol] 31.0 g/dL 32-36 [facility] No Panel InformationOrdered By: Baljit Jaffe on 03-18-2023 Estimated Creatinine Clearance Calc 41.46 ml/min [facility] Estimated GFR (MDRD) Amer 64 mL/min >60 [facility] Comment on above: GFR Calc Estimated GFR (MDRD) Non-Af Amer 53 mL/min >60 [facility] Comment on above: Non- GFR Calc Platelets bldOrdered By: Baljit Jaffe on 03-18-2023 Platelets (Bld) [#/Vol] 333 10*3/uL 150-450 [facility] Serum or plasma calcium danae urement (mass/volume)Ordered By: Baljit Jaffe on 03-18-2023 Calcium [Mass/Vol] 8.4 mg/dL 8.5-10.1 [facility] Serum or plasma creatinine m easurement (mass/volume)Ordered By: Baljit Jaffe on 03-18-2023 Creatinine [Mass/Vol] 1.07 mg/dL 0.55-1.02 [facility] Comment on above: The validity of the calculated GFR & GFRAA in patients over 70 years has not been determined. Clinical correlation is essential. Serum or plasma urea nitroge n measurement (mass/volume)Ordered By: Baljit Jaffe on 03-18-2023 Urea nitrogen [Mass/Vol] 33 mg/dL 7-18 [facility] Thin prep Papanicolaou smear with manual screeningOrdered By: Baljit Jaffe on 03-18-2023 Thin prep Papanicolaou smear with manual screening 5 5-15 [facility] COVID-19 virus antigen assay Ordered By: Baljit Jaffe on 03-17-2023 SARS-CoV-2 (COVID-19) Ag IA.rapid Ql (Resp) [facility] SARS-CoV-2 (COVID-19) Ag IA.rapid Ql (Resp) [facility] Gram stain for investigation of transfusion reactionOrdered By: Baljit Jfafe on 03-17-2023 Microscopic observation Gram stain Nom (Unsp spec) [facility] Microscopic observation Gram stain Nom (Unsp spec) [facility] Routine wound cultureOrdered By: Baljit Jaffe on 03-17-2023 Bacteria identified Cx Nom (Wound) No growth aerobically. [facility] Bacteria identified Cx Nom (Wound) No growth aerobically. [facility] 36on 03-15-2023 36 Sent via Car reviews. Normal [facility] 36 Name of caller: Ricco noel [facility] Contact phone number: [phone] Relationship to Patient: [facility] Provider: Dr Lopez Practice: [facility] location Chief Complaint/Reason for Call: 03/15/23 Margaret calling to ask the office /provider about her Immunization Records she stated pt received Pneumococcal 23 on 04/10/21 but she is asking if anymore was given to pt if so, she will need those records faxed over to [phone] pls advise Best time of day caller can be reached: AM Patient advised that office/PCP has 24-48 business hours to return their call: Yes [facility] CARECOORDon 03-06-2023 CARECOORD Patient Choice Patient Name: RADHA SANDOVAL Date of : 1945 [facility] Bacteria identified Cx Nom ( U)Ordered By: Kalpesh Dillon on 03-03-2023 Interpretation and review of laboratory results Abnormal [facility]charge med list transmitted to [facility] via Care[facility] per TCC request. Normal [facility] Spoke with pt at bedside regarding POA, pt states she is not interested at this time to complete it and would consider completing at [place] - did call Rafaela at [place] to update her as well. Normal [facility] Transportation arran ged through [facility] by cot set for 10 am tile picker. Will notify RN and TCC of this in rounds. Notified patient's son via phone of transportation time. SW remains available if any other needs concerns arise. Normal [facility] You are not granted access to view this sensitive note. Normal [facility] Insurance auth obtai shaina for [facility] nursing [facility], updated Dr Finch notified via [employer] Chat. Normal [facility] CBC W Auto Differential pane l (Bld)on 03-03-2023 Basophils (Bld) [#/Vol] 0.1 10*3/uL 0.0 - 0.2 10*3/uL [facility] Basophils/100 WBC (Bld) 0.6 % 0.0 - 2.0 % [facility] Eosinophils (Bld) [#/Vol] 0.4 10*3/uL 0.0 - 0.5 10*3/uL [facility] Eosinophils/100 WBC (Bld) 4.4 % 1.0 - 6.0 % [facility] Erythrocyte distribution width (RBC) [Ratio] 13.4 % 11.5 - 14.5 % [facility] Hematocrit (Bld) [Volume fraction] 35.5 % 35.0 - 47.0 % [facility] Hemoglobin (Bld) [Mass/Vol] 11.6 g/dL Low 11.7 - 16.0 g/dL [facility] Interpretation and review of laboratory results Abnormal [facility] Lymphocytes (Bld) [#/Vol] 2.0 10*3/uL 1.0 - 4.3 10*3/uL [facility] Lymphocytes/100 WBC (Bld) 22.6 % 20.0 - 40.0 % [facility] MCH (RBC) [Entitic mass] 27.7 pg 26.0 - 34.0 pg [facility] MCHC (RBC) [Mass/Vol] 32.7 % 32.0 - 36.0 % [facility] MCV (RBC) [Entitic vol] 84.8 fL 80.0 - 98.0 fL [facility] Monocytes (Bld) [#/Vol] 1.0 10*3/uL High 0.0 - 0.8 10*3/uL [facility] Monocytes/100 WBC (Bld) 11.6 % High 2.0 - 10.0 % [facility] Neutrophils (Bld) [#/Vol] 5.4 10*3/uL 1.8 - 7.0 10*3/uL [facility] Neutrophils/100 WBC (Bld) 60.8 % 40.0 - 80.0 % [facility] Nucleated RBC/100 WBC (Bld) [Ratio] 0.0 % [facility] Platelet mean volume (Bld) [Entitic vol] 7.9 fL 7.4 - 12.4 fL [facility] Platelets (Bld) [#/Vol] 257 10*3/uL 140 - 440 10*3/uL [facility] RBC (Bld) [#/Vol] 4.19 10*6/uL 3.8 - 5.20 10*6/uL [facility] WBC (Bld) [#/Vol] 9.0 10*3/uL 3.6 - 10.7 10*3/uL [facility] CBC WITH AUTO DIFFERENTIALon 03-03-2023 Basophils (Bld) [#/Vol] 0.1 10*3/uL Normal 0.0-0.2 [facility] Comment on above: Performed By: #### L [id number] ####[employer] Operator: MARTIN REYES ([id number])[facility] CENTERDiony MONTERO (SBAB)[address] [place] [address] Basophils/100 WBC (Bld) 0.6 % Normal 0.0-2.0 [facility] Comment on above: Performed By: #### L [id number] ####[employer] Operator: MARTIN REYES ([id number])[facility] (SBHLAB)[address] Eosinophils (Bld) [#/Vol] 0.4 10*3/uL Normal 0.0-0.5 [facility] Comment on above: Performed By: #### L [id number] ####[employer] Operator: MARTIN REYES ([id number])[facility] [place] (SBHLAB)[address] Eosinophils/100 WBC (Bld) 4.4 % Normal 1.0-6.0 [facility] Comment on above: Performed By: #### L [id number] ####[employer] Operator: MARTIN REYES ([id number])[facility]A [place] (SBHLAB)[address] Erythrocyte distribution width (RBC) [Ratio] 13.4 % Normal 11.5-14.5 [facility] Comment on above: Performed By: #### L [id number] ####[employer] Operator: MARTIN REYES ([id number])[facility] [place] (SBHLAB)[address] [place] [address] ERYTHROCYTE MEAN CORPUSCULAR HEMOGLOBIN CONCENTRATION (G/DL) BY AUTOMATED 32.7 % Normal 32.0-36.0 [facility] Comment on above: Performed By: #### L [id number] ####[employer] Operator: MARTIN REYES ([id number])[facility] [place] (SBHLAB)[address] [place] [address] Hematocrit (Bld) [Volume fraction] 35.5 % Normal 35.0-47.0 [facility] Comment on above: Performed By: #### L [id number] ####[employer] Operator: MARTIN REYES ([id number])[facility] [place] (SBHLAB)[address] [place] [address] Hemoglobin (Bld) [Mass/Vol] 11.6 g/dL Low 11.7-16.0 [facility] Comment on above: Performed By: #### L [id number] ####[employer] Operator: MARTIN REYES ([id number])[facility] CENTERDiony [place] (SBHLAB)[address] [place] [address] Lymphocytes (Bld) [#/Vol] 2.0 10*3/uL Normal 1.0-4.3 [facility] Comment on above: Performed By: #### L [id number] ####[employer] Operator: MARTIN REYES ([id number])[facility] CENTERDiony BANNERElvia ([facility])[address] [place] [address] Lymphocytes/100 WBC (Bld) 22.6 % Normal 20.0-40.0 [facility] Comment on above: Performed By: #### L [id number] ####[employer] Operator: MARTIN REYES ([id number])[facility] CENTERDiony BANNERElvia ([facility])[address] [place] [address] MCH (RBC) [Entitic mass] 27.7 pg Normal 26.0-34.0 [facility] Comment on above: Performed By: #### L [id number] ####[employer] Operator: MARTIN REYES ([id number])[facility] CENTERDiony [facility]STEVENSON (SBAB)[address] [place] [address] MCV (RBC) [Entitic vol] 84.8 fL Normal 80.0-98.0 [facility] Comment on above: Performed By: #### L [id number] ####[employer] Operator: MARTIN REYES ([id number])[facility] CENTERDiony BANNERElvia (SBAB)[address] [place] [address] Monocytes (Bld) [#/Vol] 1.0 10*3/uL High 0.0-0.8 [facility] Comment on above: Performed By: #### L [id number] ####[employer] Operator: MARTIN REYES ([id number])[facility] (SBHLAB)[address] [place] [address] [place] Monocytes/100 WBC (Bld) 11.6 % High 2.0-10.0 [facility] Comment on above: Performed By: #### L [id number] ####[employer] Operator: MARTIN REYES ([id number])[facility] (SBHLAB)[address] Neutrophils (Bld) [#/Vol] 5.4 10*3/uL Normal 1.8-7.0 [facility] Comment on above: Performed By: #### L [id number] ####[employer] Operator: MARTIN REYES ([id number])[facility] [place] (SBHLAB)[address] Neutrophils/100 WBC (Bld) 60.8 % Normal 40.0-80.0 [facility] Comment on above: Performed By: #### L [id number] ####[employer] Operator: MARTIN REYES ([id number])[facility] [place] (SBHLAB)[address] [place] [address] [place] NRBC (PER 100 WBCS) BY AUTOMATED COUNT 0.0 /100 WBCs Normal 0.0-2.0 [facility] Comment on above: Performed By: #### L [id number] ####[employer] Operator: MARTIN REYES ([id number])[facility] [place] (SBHLAB)[address] [place] [address] [place] Platelet mean volume (Bld) [Entitic vol] 7.9 fL Normal 7.4-12.4 [facility] Comment on above: Performed By: #### L [id number] ####[employer] Operator: MARTIN REYES ([id number])[facility] [place] (SBHLAB)[address] [place] [address] [place] PLATELETS (10*3/UL) IN BLOOD AUTOMATED COUNT 257 10*3/uL Normal 140-[address] [facility] Comment on above: Performed By: #### L [id number] ####[employer] Operator: MARTIN REYES ([id number])[facility]OGELIO BERRIOSSTEVENSON (SBHLAB)[address] RBC (Bld) [#/Vol] 4.19 10*6/uL Normal 3.8-5.20 [facility] Comment on above: Performed By: #### L [id number] ####[employer] Operator: MARTIN REYES ([id number])[facility] CENTERDiony BERRIOSTUBA CITY REGIONAL HEALTH CARE CORPORATIONElvia (SBHLAB)[address] WBC (Bld) [#/Vol] 9.0 10*3/uL Normal 3.6-10.7 [facility] Comment on above: Performed By: #### L [id number] ####[employer] Operator: MARTIN REYES ([id number])[facility] CENTERDiony [facility]RIOSBAN[facility] (SBHLAB)[address] [place] [address] COMPREHENSIVE METABOLIC PANE Real 03-03-2023 Albumin [Mass/Vol] 3.2 g/dL Low 3.5-5.0 [facility] Comment on above: Performed By: #### L [id number] ####[employer] Operator: MARTIN REYES ([id number])[facility] (SBHLAB)[address] ALP [Catalytic activity/Vol] 94 U/L Normal 38-126 [facility] Comment on above: Performed By: #### L AB17 ####[employer] Operator: MARTIN REYES ([id number])[facility] (SBHLAB)[address] ALT [Catalytic activity/Vol] 12 U/L Normal 0-34 [facility] Comment on above: Performed By: #### L [id number] ####[employer] Operator: MARTIN REYES ([id number])[facility] (SBHLAB)[address] Anion gap [Moles/Vol] 2 mmol/L Low 3-13 [facility] Comment on above: Performed By: #### L [id number] ####[employer] Operator: MARTIN REYES ([id number])[facility] (SBHLAB)[address] AST [Catalytic activity/Vol] 34 U/L Normal 15-46 [facility] Comment on above: Performed By: #### L AB17 ####[employer] Operator: MARTIN REYES ([id number])[facility] [place] (SBHLAB)[address] Bilirubin [Mass/Vol] 0.3 mg/dL Normal 0.2-1.3 [facility] Comment on above: Performed By: #### L AB17 ####[employer] Operator: MARTIN REYES ([id number])[facility] [place] (SBHLAB)[address] Calcium [Mass/Vol] 8.1 mg/dL Low 8.4-10.4 [facility] Comment on above: Performed By: #### L AB17 ####[employer] Operator: MARTIN REYES ([id number])[facility] [place] (SBHLAB)[address] Chloride [Moles/Vol] 102 mmol/L Normal 98-107 [facility] Comment on above: Performed By: #### L [id number] ####[employer] Operator: MARTIN REYES ([id number])[facility] [place] (SBHLAB)[address] CO2 [Moles/Vol] 30 mmol/L Normal 22-30 [facility] Comment on above: Performed By: #### L AB17 ####[employer] Operator: MARTIN REYES ([id number])[facility] [place] (SBHLAB)[address] Creatinine [Mass/Vol] 0.82 mg/dL Normal 0.52-1.04 [facility] Comment on above: Performed By: #### L AB17 ####[employer] Operator: MARTIN REYES ([id number])[facility] [place] (SBHLAB)[address] GLOMERULAR FILTRATION RATE ML/MIN/1.73 SQ M.PREDICTED 72.9 mL/min/1.73m*2 Normal >60.0 [facility] Comment on above: Result Comment: Calc ulation based on the Chronic Kidney Disease Epidemiology Collaboration (CKD-EPI) equation refit without adjustment for race Performed By: #### L [id number] ####[employer] Operator: MARTIN REYES ([id number])[facility] CENTERDiony [place] (SBHLAB)[address] Glucose [Mass/Vol] 125 mg/dL High 70-100 [facility] Comment on above: Performed By: #### L AB17 ####[employer] Operator: MARTIN REYES ([id number])[facility] [place] (SBHLAB)[address] Potassium [Moles/Vol] 3.7 mmol/L Normal 3.5-5.1 [facility] Comment on above: Performed By: #### L [id number] ####[employer] Operator: MARTIN REYES ([id number])[facility] [place] (SBHLAB)[address] Protein [Mass/Vol] 6.2 g/dL Low 6.3-8.2 [facility] Comment on above: Performed By: #### L AB17 ####[employer] Operator: MARTIN REYES ([id number])[facility] [place] (SBHLAB)[address] [place] [address] [place] Sodium [Moles/Vol] 134 mmol/L Low 135-145 [facility] Comment on above: Performed By: #### L AB17 ####[employer] Operator: MARTIN REYES ([id number])[facility] [place] (SBHLAB)[address] [place] [address] [place] Urea nitrogen [Mass/Vol] 15 mg/dL Normal 7-17 [facility] Comment on above: Performed By: #### L AB17 ####[employer] Operator: MARTIN REYES ([id number])[facility] [place] (SBHLAB)[address] Comprehensive metabolic 1998 panelon 03-03-2023 Albumin [Mass/Vol] 3.2 g/dL Low 3.5 - 5.0 g/dL [facility] ALP [Catalytic activity/Vol] 94 U/L 38 - 126 U/L [facility] ALT [Catalytic activity/Vol] 12 U/L 0 - 34 U/L [facility] Anion gap [Moles/Vol] 2 mmol/L Low 3 - 13 mmol/L [facility] AST [Catalytic activity/Vol] 34 U/L 15 - 46 U/L [facility] Bilirubin [Mass/Vol] 0.3 mg/dL 0.2 - 1 .3 mg/dL [facility] Calcium [Mass/Vol] 8.1 mg/dL Low 8.4 - 10. 4 mg/dL [facility] Chloride [Moles/Vol] 102 mmol/L 98 - 10 7 mmol/L [facility] CO2 [Moles/Vol] 30 mmol/L 22 - 30 mmol/L [facility] Creatinine [Mass/Vol] 0.82 mg/dL 0.52 - 1.04 mg/dL [facility] GFR/1.73 sq M.predicted MDRD (S/P/Bld) [Vol rate/Area] 72.9 mL/min/{1.73_m2} - PINF [facility] Comment on above: Calculation based on the Chronic Kidney Disease Epidemiology Collaboration (CKD-EPI) equation refit without adjustment for race Glucose [Mass/Vol] 125 mg/dL High 70 - 100 mg/dL [facility] Interpretation and review of laboratory results Abnormal [facility] Potassium [Moles/Vol] 3.7 mmol/L 3.5 - 5.1 mmol/L [facility] Protein [Mass/Vol] 6.2 g/dL Low 6.3 - 8.2 g/dL [facility] Sodium [Moles/Vol] 134 mmol/L Low 135 - 145 mmol/L [facility] Urea nitrogen [Mass/Vol] 15 mg/dL 7 - 17 mg/dL [facility] POCT glucose meteron 023 Glucose [Mass/Vol] 215 mg/dL High 70 - 100 mg/dL [facility] Interpretation and review of laboratory results Abnormal [facility] Performed by: [facility], [address] [place] [address] CLIA ID: [id number] [facility] Glucose [Mass/Vol] 158 mg/dL High 70 - 100 mg/dL [facility] Interpretation and review of laboratory results Abnormal [facility] Performed by: [facility], [address] [facility] [address] CLIA ID: [id number] [facility] Progress Noteon 03-03-2023 Progress Note Discharged via ambulance to [facility] Normal [facility] Progress Note Report called to carolina garcia at [facility] at [phone] Normal [facility] Urine cultureOrdered By: Sanford Dillon on 03-03-2023 Bacteria identified Cx Nom (U) >100,000 CFU/mL Escherichia coli Abnormal [facility] 25-hydroxyvitamin D3 [Mass/V ol]on 03-02-2023 Therapy is based on measurement of Total 25-OHD with the following classification levels: Less than 20 ng/mL: Indicative of Vit D deficiency 20-30 ng/mL: Suggests Vit D insufficiency Optimal: Greater than or equal to 30 ng/mL Test performed by [employer] Immunoassay, measuring Total Vitamin D, not individual fractions. [facility] CARECOORDon 03-02-2023 [facility]ORD Received a call from Rafaela at [facility], they are able to accept, pt agreeable. 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 [employer] auth for [facility] at this time Normal [facility] CBC W Auto Differential pane l (Bld)Ordered By: Wendy Bruce on 03-02-2023 Basophils (Bld) [#/Vol] 0.1 10*3/uL 0.0 - 0.2 10*3/uL [facility] Basophils/100 WBC (Bld) 0.7 % 0.0 - 2.0 % [facility] Eosinophils (Bld) [#/Vol] 0.4 10*3/uL 0.0 - 0.5 10*3/uL [facility] Eosinophils/100 WBC (Bld) 3.9 % 1.0 - 6.0 % [facility] Erythrocyte distribution width (RBC) [Ratio] 13.7 % 11.5 - 14.5 % [facility] Hematocrit (Bld) [Volume fraction] 36.1 % 35.0 - 47.0 % [facility] Hemoglobin (Bld) [Mass/Vol] 11.9 g/dL 11.7 - 16.0 g/dL [facility] Interpretation and review of laboratory results Abnormal [facility] Lymphocytes (Bld) [#/Vol] 1.9 10*3/uL 1.0 - 4.3 10*3/uL [facility] Lymphocytes/100 WBC (Bld) 20.1 % 20.0 - 40.0 % [facility] MCH (RBC) [Entitic mass] 28.5 pg 26.0 - 34.0 pg [facility] MCHC (RBC) [Mass/Vol] 32.8 % 32.0 - 36.0 % [facility] MCV (RBC) [Entitic vol] 86.8 fL 80.0 - 98.0 fL [facility] Monocytes (Bld) [#/Vol] 1.1 10*3/uL High 0.0 - 0.8 10*3/uL [facility] Monocytes/100 WBC (Bld) 11.4 % High 2.0 - 10.0 % [facility] Neutrophils (Bld) [#/Vol] 6.1 10*3/uL 1.8 - 7.0 10*3/uL [facility] Neutrophils/100 WBC (Bld) 63.9 % 40.0 - 80.0 % [facility] Nucleated RBC/100 WBC (Bld) [Ratio] 0.1 % [facility] Platelet mean volume (Bld) [Entitic vol] 8.4 fL 7.4 - 12.4 fL [facility] Platelets (Bld) [#/Vol] 252 10*3/uL 140 - 440 10*3/uL [facility] RBC (Bld) [#/Vol] 4.16 10*6/uL 3.8 - 5.20 10*6/uL [facility] WBC (Bld) [#/Vol] 9.5 10*3/uL 3.6 - 10.7 10*3/uL [facility] CBC WITH AUTO DIFFERENTIALon 03-02-2023 Basophils (Bld) [#/Vol] 0.1 10*3/uL Normal 0.0-0.2 [facility] Comment on above: Performed By: #### L [id number] ####[employer] Operator: MARTIN REYES ([id number])[facility] [place] (SBHLAB)[address] Basophils/100 WBC (Bld) 0.7 % Normal 0.0-2.0 [facility] Comment on above: Performed By: #### L [id number] ####[employer] Operator: MARTIN REYES ([id number])[facility] [place] (SBHLAB)[address] Eosinophils (Bld) [#/Vol] 0.4 10*3/uL Normal 0.0-0.5 [facility] Comment on above: Performed By: #### L [id number] ####[employer] Operator: MARTIN REYES ([id number])[facility]ENTERA BARBTUBA CITY REG[facility] CORPORATIONN (SBHLAB)[address] [place] [address] Eosinophils/100 WBC (Bld) 3.9 % Normal 1.0-6.0 [facility] Comment on above: Performed By: #### L [id number] ####[employer] Operator: MARTIN REYES ([id number])[facility] [place] ([facility])[address] [place] [address] Erythrocyte distribution width (RBC) [Ratio] 13.7 % Normal 11.5-14.5 [facility] Comment on above: Performed By: #### L [id number] ####[employer] Operator: MARTIN REYES ([id number])[facility] [place] (SBHLAB)[address] [place] [address] ERYTHROCYTE MEAN CORPUSCULAR HEMOGLOBIN CONCENTRATION (G/DL) BY AUTOMATED 32.8 % Normal 32.0-36.0 [facility] Comment on above: Performed By: #### L [id number] ####[employer] Operator: MARTIN REYES ([id number])[facility] [place] (SBHLAB)[address] [place] [address] Hematocrit (Bld) [Volume fraction] 36.1 % Normal 35.0-47.0 [facility] Comment on above: Performed By: #### L [id number] ####[employer] Operator: MARTIN REYES ([id number])[facility] CENTERDiony [place] (SBHLAB)[address] [place] [address] Hemoglobin (Bld) [Mass/Vol] 11.9 g/dL Normal 11.7-16.0 [facility] Comment on above: Performed By: #### L [id number] ####[employer] Operator: MARTIN REYES ([id number])[facility]ENTERA BARBTUBA CITY REG[facility] HE[facility] CARE CORPORATIONN (SBHLAB)[address] [place] [address] Lymphocytes (Bld) [#/Vol] 1.9 10*3/uL Normal 1.0-4.3 [facility] Comment on above: Performed By: #### L [id number] ####[employer] Operator: MARTIN AMBROSEJOSE R ([id number])[facility] ([facility])[address] [place] [address] Lymphocytes/100 WBC (Bld) 20.1 % Normal 20.0-40.0 [facility] Comment on above: Performed By: #### L [id number] ####[employer] Operator: MARTIN AMBROSEJOSE R ([id number])[facility] ([facility])[address] [place] [address] MCH (RBC) [Entitic mass] 28.5 pg Normal 26.0-34.0 [facility] Comment on above: Performed By: #### L [id number] ####[employer] Operator: MARTIN AMBROSEJOSE R ([id number])[facility] CENTERDiony BARBTUBA CITY [facility] CORPORATIONN (SBHLAB)[address] [place] [address] MCV (RBC) [Entitic vol] 86.8 fL Normal 80.0-98.0 S [facility] Comment on above: Performed By: #### L [id number] ####[employer] Tube Mill Operator: MARTIN REYES ([id number])[facility] (SBHLAB)[address] [place] [address] Monocytes (Bld) [#/Vol] 1.1 10*3/uL High 0.0-0.8 [facility] Comment on above: Performed By: #### L [id number] ####Se[employer] T[employer] Mill Operator: MARTIN REYES ([id number])[facility] (SBHLAB)[address] Monocytes/100 WBC (Bld) 11.4 % High 2.0-10.0 [facility] Comment on above: Performed By: #### L [id number] ####[employer] Operator: MARTIN REYES ([id number])[facility] (SBHLAB)[address] Neutrophils (Bld) [#/Vol] 6.1 10*3/uL Normal 1.8-7.0 [facility] Comment on above: Performed By: #### L [id number] ####[employer] Mill Operator: MARTIN REYES ([id number])[facility] (SBHLAB)[address] Neutrophils/100 WBC (Bld) 63.9 % Normal 40.0-80.0 [facility] Comment on above: Performed By: #### L [id number] ####Se[employer] T[employer] Mill Operator: MARTIN REYES ([id number])[facility] (SBHLAB)[address] [place] [address] [place] NRBC (PER 100 WBCS) BY AUTOMATED COUNT 0.1 /100 WBCs Normal 0.0-2.0 [facility] Comment on above: Performed By: #### L [id number] ####Se[employer] T[employer] Mill Operator: MARTIN REYES ([id number])[facility] [place] (SBHLAB)[address] [place] [address] [place] Platelet mean volume (Bld) [Entitic vol] 8.4 fL Normal 7.4-12.4 [facility] Comment on above: Performed By: #### L [id number] ####Se[employer] T[employer] Mill Operator: MARTIN REYES ([id number])[facility] [place] (SBHLAB)[address] [place] [address] [place] PLATELETS (10*3/UL) IN BLOOD AUTOMATED COUNT 252 10*3/uL Normal 140-[address] [facility] Comment on above: Performed By: #### L [id number] ####Se[employer] T[employer] Mill Operator: MARTIN REYES ([id number])[facility] CENTERDiony [facility]OSTU[facility] CORPORATIONN (SBHLAB)[address] RBC (Bld) [#/Vol] 4.16 10*6/uL Normal 3.8-5.20 [facility] Comment on above: Performed By: #### L [id number] ####Se[employer] T[employer] Mill Operator: MARTIN REYES ([id number])[facility] (SBHLAB)[address] WBC (Bld) [#/Vol] 9.5 10*3/uL Normal 3.6-10.7 [facility] Comment on above: Performed By: #### L [id number] ####Se[employer] Mill Operator: MARTIN REYES ([id number])[facility] (SBHLAB)[address] COMPREHENSIVE METABOLIC PANE Real 03-02-2023 Albumin [Mass/Vol] 3.1 g/dL Low 3.5-5.0 [facility] Comment on above: Performed By: #### Eduardo ABUmberto, LAB17, [id number] ####Se[employer] T[employer] Mill Operator: MARTIN REYES ([id number])[facility] (SBHLAB)[address] ALP [Catalytic activity/Vol] 100 U/L Normal 38-126 [facility] Comment on above: Performed By: #### L AB127, LAB17, [id number] ####Se[employer] T[employer] Mill Operator: MARTIN REYES ([id number])[facility] (SBHLAB)[address] ALT [Catalytic activity/Vol] 13 U/L Normal 0-34 [facility] Comment on above: Performed By: #### Eduardo AB127, LAB17, [id number] ####Se[employer] T[employer] Mill Operator: MARTIN REYES ([id number])[facility] (SBHLAB)[address] Anion gap [Moles/Vol] 3 mmol/L Normal 3-13 [facility] Comment on above: Performed By: #### Eduardo ABUmberto, LAB17, [id number] ####Se[employer]less Tube Mill Operator: MARTIN REYES ([id number])[facility] CENTERDiony [facility]ATIONN (SBHLAB)[address] [place] [address] [place] AST [Catalytic activity/Vol] 22 U/L Normal 15-46 [facility] Comment on above: Performed By: #### Eduardo TEAGUE, LAB17, [id number] ####Se[employer] Mill Operator: MARTIN REYES ([id number])[facility]ENTERDiony [facility] (SBHLAB)[address] Bilirubin [Mass/Vol] 0.4 mg/dL Normal 0.2-1.3 [facility] Comment on above: Performed By: #### Eduardo TEAGUE, LAB17, [id number] ####Se[employer] T[employer] Mill Operator: MARTIN REYES ([id number])[facility]ENTERDiony [place] (SBHLAB)[address] Calcium [Mass/Vol] 8.4 mg/dL Normal 8.4-10.4 [facility] Comment on above: Performed By: #### Eduardo TEAGUE, LAB17, [id number] ####Se[employer] T[employer] Mill Operator: MARTIN REYES ([id number])[facility]ENTERDiony [facility]N (SBHLAB)[address] [place] [address] [place] Chloride [Moles/Vol] 105 mmol/L Normal 98-107 [facility] Comment on above: Performed By: #### Eduardo ABUmberto, LAB17, [id number] ####Se[employer] T[employer] Mill Operator: MARTIN REYES ([id number])[facility]ENTERDiony [facility] (SBHLAB)[address] [place] [address] [place] CO2 [Moles/Vol] 27 mmol/L Normal 22-30 [facility] Comment on above: Performed By: #### Eduardo ABUmberto, LAB17, [id number] ####Se[employer] T[employer] Mill Operator: MARTIN REYES ([id number])[facility] [place] (SBHLAB)[address] Creatinine [Mass/Vol] 0.77 mg/dL Normal 0.52-1.04 [facility] Comment on above: Performed By: #### Eduardo TEAGUE, LAB17, [id number] ####Se[employer] T[employer] Mill Operator: MARTIN REYES ([id number])[facility] [place] (SBHLAB)[address] GLOMERULAR FILTRATION RATE ML/MIN/1.73 SQ M.PREDICTED 78.6 mL/min/1.73m*2 Normal >60.0 [facility] Comment on above: Result Comment: Calc ulation based on the Chronic Kidney Disease Epidemiology Collaboration (CKD-EPI) equation refit without adjustment for race Performed By: #### Eduardo TEAGUE, LAB17, HZE415 ####Se[employer] T[employer] Mill Operator: MARTIN REYES ([id number])[facility]ENTERA [facility]BTU[facility]ATIONN (SBHLAB)[address] Glucose [Mass/Vol] 97 mg/dL Normal 70-100 [facility] Comment on above: Performed By: #### Eduardo TEAGUE, LAB17, [id number] ####Se[employer] T[employer] Mill Operator: MARTIN REYES ([id number])[facility]A [facility]BT[facility]N (SBHLAB)[address] Potassium [Moles/Vol] 4.1 mmol/L Normal 3.5-5.1 [facility] Comment on above: Performed By: #### Eduardo TEAGUE, LAB17, [id number] ####Se[employer] Mill Operator: MARTIN REYES ([id number])[facility] [place] (SBHLAB)[address] [place] [address] [place] Protein [Mass/Vol] 5.8 g/dL Low 6.3-8.2 [facility] Comment on above: Performed By: #### Eduardo TEAGUE, LAB17, [id number] ####Se[employer] T[employer] Mill Operator: MARTIN REYES ([id number])[facility]A [facility]N (SBHLAB)[address] Sodium [Moles/Vol] 135 mmol/L Normal 135-145 [facility] Comment on above: Performed By: #### L AB127, LAB17, CAY243 ####Se[employer] T[employer] Mill Operator: MARTIN REYES ([id number])[facility] CENTERDiony [facility] (SBHLAB)[address] Urea nitrogen [Mass/Vol] 15 mg/dL Normal 7-17 [facility] Comment on above: Performed By: #### L AB127, LAB17, VRU572 ####Se[employer] T[employer] Mill Operator: MARTIN REYES ([id number])[facility] CENTERDiony [place] (SBHLAB)[address] Comprehensive metabolic 1998 panelon 03-02-2023 Albumin [Mass/Vol] 3.1 g/dL Low 3.5 - 5.0 g/dL [facility] ALP [Catalytic activity/Vol] 100 U/L 38 - 126 U/L [facility] ALT [Catalytic activity/Vol] 13 U/L 0 - 34 U/L [facility] Anion gap [Moles/Vol] 3 mmol/L 3 - 13 mmol/L [facility] AST [Catalytic activity/Vol] 22 U/L 15 - 46 U/L [facility] Bilirubin [Mass/Vol] 0.4 mg/dL 0.2 - 1 .3 mg/dL [facility] Calcium [Mass/Vol] 8.4 mg/dL 8.4 - 10. 4 mg/dL [facility] Chloride [Moles/Vol] 105 mmol/L 98 - 10 7 mmol/L [facility] CO2 [Moles/Vol] 27 mmol/L 22 - 30 mmol/L [facility] Creatinine [Mass/Vol] 0.77 mg/dL 0.52 - 1.04 mg/dL [facility] GFR/1.73 sq M.predicted MDRD (S/P/Bld) [Vol rate/Area] 78.6 mL/min/{1.73_m2} - PINF [facility] Comment on above: Calculation based on the Chronic Kidney Disease Epidemiology Collaboration (CKD-EPI) equation refit without adjustment for race Glucose [Mass/Vol] 97 mg/dL 70 - 100 mg/dL [facility] Interpretation and review of laboratory results Abnormal [facility] Potassium [Moles/Vol] 4.1 mmol/L 3.5 - 5.1 mmol/L [facility] Protein [Mass/Vol] 5.8 g/dL Low 6.3 - 8.2 g/dL [facility] Sodium [Moles/Vol] 135 mmol/L 135 - 145 mmol/L [facility] Urea nitrogen [Mass/Vol] 15 mg/dL 7 - 17 mg/dL [facility] FREE T4on 03-02-2023 Free T4 [Mass/Vol] 3.28 ng/dL High 0.78-2.19 [facility] Comment on above: Performed By: #### L AB127, LAB17, [id number] ####Se[employer] T[employer] Mill Operator: MARTIN REYES ([id number])[facility]ENTERDiony [facility] (SBHLAB)[address] [place] [address] Free T4 [Mass/Vol]on 023 Free T4 Dialysis [Mass/Vol] 3.28 ng/dL High 0.78 - 2.19 ng/dL [facility] No Panel Informationon 03-02 Interpretation and review of laboratory results Abnormal [facility] POCT glucose meteron 023 Glucose [Mass/Vol] 175 mg/dL High 70 - 100 mg/dL [facility] Interpretation and review of laboratory results Abnormal [facility] Performed by: [facility], [address] [place] [address] CLIA ID: [id number] [facility] Glucose [Mass/Vol] 214 mg/dL High 70 - 100 mg/dL [facility] Interpretation and review of laboratory results Abnormal [facility] Performed by: [facility], [address] [place] [address] CLIA ID: [id number] [facility] Glucose [Mass/Vol] 141 mg/dL High 70 - 100 mg/dL [facility] Interpretation and review of laboratory results Abnormal [facility] Performed by: [facility], [address] [place] [address] CLIA ID: [id number] [facility] Progress Noteon 03-02-2023 Progress Note Department of Research Program Internship al Medicine Division of Endocrinology, Diabetes, & Metabolism Endocrinology Note Patient Name: Radha Sandoval : 1945 AGE: 77 y.o. Room/Bed: [facility] [place] A Admission Date: 02/28/2023 Visit Date: 03/02/2023 Reason for Endocrine Consult: DM-Uncontrolled Provider/Team Requesting Consult: Dr. Finch PCP: Shiv Lopez MD Outpt [employer] Blanket Machine Feeder: No ASSESSMENT: Type II diabetes with hyperglycemia, with extermination supervisor insulin use Postoperative hypothyroidism Patient admitted for [...] before breakfast Patient to discharge to SNF [facility] Outpt Follow Up-- PCP SUBJECTIVE/HPI: CHIEF [...] diagnosis. She has been having diarrhea in 2578-3643, smt severe Glimepiride- started in 2015 Trulicity [...] Physical Exam Vitals and nursing note reviewed. Jessicati (more content not included)... Normal [facility] Progress Note Occupational Therapy OCCUPATIONAL THERAPY [facility] ED's Treatment Note Name/MRN: Radha Sandoval ([id number]) Date of : 1945 Age: 77 y.o. [...] to rehab service department Occupational Therapist Normal [facility] Progress Note [facility] Geriatric Medicine Inpatient Consult Service Admission Date: 02/28/2023 Assessment Principal Problem: LING (acute kidney injury) (CMS/HCC) ([facility]) Active Problems: Declining functional status Weakness Anxiety Polypharmacy DNR (do not resuscitate) Insomnia Plan Declining functional status -Related to physical deconditioning, UTI, advanced age, diabetes type 2 -Continue PT/OT as able while inpatient -Anticipate d/c to SNF for ongoing daily PT/OT, patient agreeable to go to [facility] Fall Weakness -Multiple risk factors including [...] you Subjective Chief Complaint: low back pain/dysuria/polyuria/w [facility] Geriatrics consulted for "functional decline" HPI- [...] contact guard. Ambulated 30 ft x2. Recommending assisted facility . Review of Systems Constitutional: Negative [...] 2 pu (more content not included)... Normal [facility] Progress Note Nutrition rescreen completed. Pt referred to RD for uncontrolled DM, and nutrition supplement per Wound Care. Normal [facility] VITAMIN D DEFICIENCY SCREENI NG (VIT D 25)on 03-02-2023 VIT D 25-OH, TOTAL 17 ng/mL Low 30-100 [facility] Comment on above: Result Comment: LISA Mejia COMMENTS: Therapy is based on measurement of Total 25-OHD with the following classification levels: Less than 20 ng/mL: Indicative of Vit D deficiency 20-30 ng/mL: Suggests Vit D insufficiency Optimal: Greater than or equal to 30 ng/mL Test performed by [employer] Immunoassay, measuring Total Vitamin D, not individual fractions. Performed By: #### L AB127, LAB17, [id number] ####Se[employer] Tube Mill Operator: MARTIN REYES ([id number])[facility] (SBHLAB)[address] [place] [id number] [facility] Vitamin D Deficiency Screeni ng (Vit D 25)on 03-02-2023 25-hydroxyvitamin D3 [Mass/Vol] 17 ng/mL Low 30 - 100 ng/mL [facility] [id number] 03-01-2023 [id number] Crimping 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 For Metal following case for Discharge Needs. Therapy states SNF, but Patient wants HC instead. Normal [facility] CARECOORDon 03-01-2023 [facility] Care Managment Initi al Assessment Date: 03/01/2023 Patient Name: Radha Sandoval : 1945 Patient Information Source of Information: Patient Cognition/Language: WFL - Within Functional Limits Permission given to speak with patient patient relations representative/caregive r as indicated: Yes Confirmation of Payer with patient/family: Yes Payer Name: [employer] [place]: No Confirmation of Primary Care Physician: Confirmed [...] Prescription Coverage: Yes Pharmacy Used: [facility] Medication Management: Independent Transportation/Shopping : Independent Transportation [...] Additional Information: 77 yo female admitted to 1E for LING. On PO augmentin for UTI, [...] in SNF but would be able to [facility]. [facility] liaison following, TCC to assist and follow as needed. Laura Jackson RN Normal [facility] CBC W Auto Differential pane l (Bld)Ordered By: Rosey Viera on 03-01-2023 Basophils (Bld) [#/Vol] 0.1 10*3/uL 0.0 - 0.2 10*3/uL [facility] [place] Basophils/100 WBC (Bld) 0.6 % 0.0 - 2.0 % [facility] Eosinophils (Bld) [#/Vol] 0.2 10*3/uL 0.0 - 0.5 10*3/uL [facility] Eosinophils/100 WBC (Bld) 1.4 % 1.0 - 6.0 % [facility] Erythrocyte distribution width (RBC) [Ratio] 13.6 % 11.5 - 14.5 % [facility] Hematocrit (Bld) [Volume fraction] 34.9 % Low 35.0 - 47.0 % [facility] Hemoglobin (Bld) [Mass/Vol] 11.5 g/dL Low 11.7 - 16.0 g/dL [facility] Interpretation and review of laboratory results Abnormal [facility] Lymphocytes (Bld) [#/Vol] 1.7 10*3/uL 1.0 - 4.3 10*3/uL [facility] Lymphocytes/100 WBC (Bld) 12.6 % Low 20.0 - 40.0 % [facility] MCH (RBC) [Entitic mass] 28.7 pg 26.0 - 34.0 pg [facility] MCHC (RBC) [Mass/Vol] 33.0 % 32.0 - 36.0 % [facility] MCV (RBC) [Entitic vol] 87.1 fL 80.0 - 98.0 fL [facility] Monocytes (Bld) [#/Vol] 1.5 10*3/uL High 0.0 - 0.8 10*3/uL [facility] Monocytes/100 WBC (Bld) 10.8 % High 2.0 - 10.0 % [facility] Neutrophils (Bld) [#/Vol] 10.3 10*3/uL High 1.8 - 7.0 10*3/uL [facility] Neutrophils/100 WBC (Bld) 74.6 % 40.0 - 80.0 % [facility] Nucleated RBC/100 WBC (Bld) [Ratio] 0.0 % [facility] Platelet mean volume (Bld) [Entitic vol] 8.5 fL 7.4 - 12.4 fL [facility] Platelets (Bld) [#/Vol] 271 10*3/uL 140 - 440 10*3/uL [facility] RBC (Bld) [#/Vol] 4.00 10*6/uL 3.8 - 5.20 10*6/uL [facility] WBC (Bld) [#/Vol] 13.8 10*3/uL High 3.6 - 10.7 10*3/uL [facility] CBC WITH AUTO DIFFERENTIALon 03-01-2023 Basophils (Bld) [#/Vol] 0.1 10*3/uL Normal 0.0-0.2 [facility] Comment on above: Performed By: #### L [id number] ####Se[employer]less Tube Mill Operator: MARTIN REYES ([id number])[facility] ([facility])[address] [place] [address] Basophils/100 WBC (Bld) 0.6 % Normal 0.0-2.0 [facility] Comment on above: Performed By: #### L [id number] ####Se[employer]less Tube Mill Operator: MARTIN REYES ([id number])[facility] ([facility])[address] Eosinophils (Bld) [#/Vol] 0.2 10*3/uL Normal 0.0-0.5 [facility] Comment on above: Performed By: #### L [id number] ####Se[employer]less Tube Mill Operator: MARTIN AMBROSEJOSE R ([id number])[facility] [place] (SBHLAB)[address] Eosinophils/100 WBC (Bld) 1.4 % Normal 1.0-6.0 [facility] Comment on above: Performed By: #### L [id number] ####Seamless Tube Mill Operator: MARTIN HUAWILFREDO ([id number])[facility] [place] (SBHLAB)[address] Erythrocyte distribution width (RBC) [Ratio] 13.6 % Normal 11.5-14.5 [facility] Comment on above: Performed By: #### L [id number] ####Se[employer]less Tube Mill Operator: MARTIN ERIC ([id number])[facility] [place] (SBHLAB)[address] [place] [address] ERYTHROCYTE MEAN CORPUSCULAR HEMOGLOBIN CONCENTRATION (G/DL) BY AUTOMATED 33.0 % Normal 32.0-36.0 [facility] Comment on above: Performed By: #### L [id number] ####Se[employer]less T[employer] Mill Operator: MARTIN EIRC ([id number])[facility] [place] (SBHLAB)[address] Hematocrit (Bld) [Volume fraction] 34.9 % Low 35.0-47.0 [facility] Comment on above: Performed By: #### L [id number] ####[employer] Mill Operator: MARTIN AMBROSEJOSE R ([id number])[facility] [place] (SBHLAB)[address] Hemoglobin (Bld) [Mass/Vol] 11.5 g/dL Low 11.7-16.0 [facility] Comment on above: Performed By: #### L [id number] ####Se[employer] T[employer] Mill Operator: MARTIN AMBROSEJOSE R ([id number])[facility] [place] (SBHLAB)[address] Lymphocytes (Bld) [#/Vol] 1.7 10*3/uL Normal 1.0-4.3 [facility] Comment on above: Performed By: #### L [id number] ####Se[employer] T[employer] Mill Operator: MARTIN REYES ([id number])[facility] (SBHLAB)[address] Lymphocytes/100 WBC (Bld) 12.6 % Low 20.0-40.0 [facility] Comment on above: Performed By: #### L [id number] ####Se[employer]less Tube Mill Operator: MARTIN AMBROSEJOSE R ([id number])[facility] CENTERDiony H[facility] (SBHLAB)[address] MCH (RBC) [Entitic mass] 28.7 pg Normal 26.0-34.0 [facility] Comment on above: Performed By: #### L [id number] ####Se[employer]less Tube Mill Operator: MARTIN AMBROSEJOSE R ([id number])[facility]ENTERD[facility] (SBHLAB)[address] [place] [address] MCV (RBC) [Entitic vol] 87.1 fL Normal 80.0-98.0 [facility] Comment on above: Performed By: #### L [id number] ####Se[employer]less Tube Mill Operator: MARTIN REYES ([id number])[facility]ELIO EBRRIOSBRAINN (SBHLAB)[address] [place] [address] [place] Monocytes (Bld) [#/Vol] 1.5 10*3/uL High 0.0-0.8 [facility] Comment on above: Performed By: #### L [id number] ####Se[employer]less Tube Mill Operator: MARTIN REYES ([id number])[facility]ENTERDiony BARBBRAINN (SBHLAB)[address] [place] [address] [place] Monocytes/100 WBC (Bld) 10.8 % High 2.0-10.0 [facility] Comment on above: Performed By: #### L [id number] ####Se[employer]less Tube Mill Operator: MARTIN REYES ([id number])[facility]ENTER[facility] [place] (SBHLAB)[address] [place] [address] [place] Neutrophils (Bld) [#/Vol] 10.3 10*3/uL High 1.8-7.0 [facility] Comment on above: Performed By: #### L [id number] ####Se[employer]less T[employer] Mill Operator: MARTIN REYES ([id number])[facility] (SBHLAB)[address] Neutrophils/100 WBC (Bld) 74.6 % Normal 40.0-80.0 [facility] Comment on above: Performed By: #### L [id number] ####Se[employer]less Tube Mill Operator: MARTIN REYES ([id number])[facility] [place] (SBHLAB)[address] NRBC (PER 100 WBCS) BY AUTOMATED COUNT 0.0 /100 WBCs Normal 0.0-2.0 [facility] Comment on above: Performed By: #### L [id number] ####Se[employer]less Tube Mill Operator: MARTIN REYES ([id number])[facility] [place] (SBHLAB)[address] [place] [address] [place] Platelet mean volume (Bld) [Entitic vol] 8.5 fL Normal 7.4-12.4 [facility] Comment on above: Performed By: #### L [id number] ####Seamless Tube Mill Operator: MARTIN REYES ([id number])[facility] [place] (SBHLAB)[address] [place] [address] [place] PLATELETS (10*3/UL) IN BLOOD AUTOMATED COUNT 271 10*3/uL Normal 140-440 [facility] Comment on above: Performed By: #### L [id number] ####Se[employer]less Tube Mill Operator: MARTIN REYES ([id number])[facility] [place] (SBHLAB)[address] [place] [address] [place] RBC (Bld) [#/Vol] 4.00 10*6/uL Normal 3.8-5.20 [facility] Comment on above: Performed By: #### L [id number] ####Se[employer]less Tube Mill Operator: MARTIN REYES ([id number])[facility] [place] (SBHLAB)[address] [place] [address] [place] WBC (Bld) [#/Vol] 13.8 10*3/uL High 3.6-10.7 [facility] Comment on above: Performed By: #### L [id number] ####Se[employer] T[employer] Mill Operator: MARTIN REYES ([id number])[facility] [place] (SBHLAB)[address] COMPREHENSIVE METABOLIC PANE Real 03-01-2023 Albumin [Mass/Vol] 3.1 g/dL Low 3.5-5.0 [facility] Comment on above: Performed By: #### L AB17 ####Se[employer]less Tube Mill Operator: MARTIN REYES ([id number])[facility] [place] (SBHLAB)[address] ALP [Catalytic activity/Vol] 102 U/L Normal 38-126 [facility] Comment on above: Performed By: #### L AB17 ####Seamless Tube Mill Operator: MARTIN REYES ([id number])[facility]A [facility]BT[facility]ATIONN (SBHLAB)[address] ALT [Catalytic activity/Vol] 16 U/L Normal 0-34 [facility] Comment on above: Performed By: #### L AB17 ####Seamless Tube Mill Operator: MARTIN REYES ([id number])[facility]A [facility]BT[facility]ATIONN (SBHLAB)[address] Anion gap [Moles/Vol] 9 mmol/L Normal 3-13 [facility] Comment on above: Performed By: #### L AB17 ####Seamless Tube Mill Operator: MARTIN REYES ([id number])[facility] [place] (SBHLAB)[address] AST [Catalytic activity/Vol] 24 U/L Normal 15-46 [facility] Comment on above: Performed By: #### L AB17 ####Seamless Tube Mill Operator: MARTIN REYES ([id number])[facility]BT[facility]N (SBHLAB)[address] Bilirubin [Mass/Vol] 0.4 mg/dL Normal 0.2-1.3 [facility] Comment on above: Performed By: #### L AB17 ####Se[employer]less Tube Mill Operator: MARTIN REYES ([id number])[facility] [place] (SBHL[facility])[address] Calcium [Mass/Vol] 8.3 mg/dL Low 8.4-10.4 [facility] Comment on above: Performed By: #### L AB17 ####Se[employer]less Tube Mill Operator: MARTIN REYES ([id number])[facility] [place] (SBHLAB)155 [address] [address] Chloride [Moles/Vol] 102 mmol/L Normal 98-107 [facility] Comment on above: Performed By: #### L [id number] ####[employer] Mill Operator: MARTIN REYES ([id number])[facility] [place] (SBHLAB)[address] CO2 [Moles/Vol] 26 mmol/L Normal 22-30 [facility] Comment on above: Performed By: #### L [id number] ####[employer] Operator: MARTIN REYES ([id number])[facility] [place] (SBHLAB)[address] Creatinine [Mass/Vol] 0.96 mg/dL Normal 0.52-1.04 [facility] Comment on above: Performed By: #### L [id number] ####[employer] Operator: MARTIN REYES ([id number])[facility] [place] (SBHLAB)[address] GLOMERULAR FILTRATION RATE ML/MIN/1.73 SQ M.PREDICTED 60.3 mL/min/1.73m*2 Normal >60.0 [facility] Comment on above: Result Comment: Calc ulation based on the Chronic Kidney Disease Epidemiology Collaboration (CKD-EPI) equation refit without adjustment for race Performed By: #### L [id number] ####[employer] Operator: MARTIN REYES ([id number])[facility] [place] (SBHLAB)[address] [place] [address] [place] Glucose [Mass/Vol] 123 mg/dL High 70-100 [facility] Comment on above: Performed By: #### L [id number] ####[employer] Operator: MARTIN REYES ([id number])[facility] [place] (SBHLAB)[address] Potassium [Moles/Vol] 4.3 mmol/L Normal 3.5-5.1 [facility] Comment on above: Performed By: #### L [id number] ####[employer] Operator: MARTIN REYES ([id number])[facility] (SBHLAB)[address] Protein [Mass/Vol] 6.0 g/dL Low 6.3-8.2 [facility] Comment on above: Performed By: #### L [id number] ####[employer] Operator: MARTIN REYES ([id number])[facility] [place] (SBHLAB)[address] Sodium [Moles/Vol] 137 mmol/L Normal 135-145 [facility] Comment on above: Performed By: #### L [id number] ####[employer] Operator: MARTIN REYES ([id number])[facility] (SBHLAB)[address] [place] [address] Urea nitrogen [Mass/Vol] 17 mg/dL Normal 7-17 [facility] Comment on above: Performed By: #### L [id number] ####[employer] Operator: MARTIN REYES ([id number])[facility] ([facility])[address] [place] [address] Comprehensive metabolic 1998 panelon 03-01-2023 Albumin [Mass/Vol] 3.1 g/dL Low 3.5 - 5.0 g/dL [facility] ALP [Catalytic activity/Vol] 102 U/L 38 - 126 U/L [facility] ALT [Catalytic activity/Vol] 16 U/L 0 - 34 U/L [facility] Anion gap [Moles/Vol] 9 mmol/L 3 - 13 mmol/L [facility] AST [Catalytic activity/Vol] 24 U/L 15 - 46 U/L [facility] Bilirubin [Mass/Vol] 0.4 mg/dL 0.2 - 1 .3 mg/dL [facility] Calcium [Mass/Vol] 8.3 mg/dL Low 8.4 - 10. 4 mg/dL [facility] Chloride [Moles/Vol] 102 mmol/L 98 - 10 7 mmol/L [facility] CO2 [Moles/Vol] 26 mmol/L 22 - 30 mmol/L [facility] Creatinine [Mass/Vol] 0.96 mg/dL 0.52 - 1.04 mg/dL [facility] GFR/1.73 sq M.predicted MDRD (S/P/Bld) [Vol rate/Area] 60.3 mL/min/{1.73_m2} - PINF [facility] Comment on above: Calculation based on the Chronic Kidney Disease Epidemiology Collaboration (CKD-EPI) equation refit without adjustment for race Glucose [Mass/Vol] 123 mg/dL High 70 - 100 mg/dL [facility] Interpretation and review of laboratory results Abnormal [facility] Potassium [Moles/Vol] 4.3 mmol/L 3.5 - 5.1 mmol/L [facility] Protein [Mass/Vol] 6.0 g/dL Low 6.3 - 8.2 g/dL [facility] Sodium [Moles/Vol] 137 mmol/L 135 - 145 mmol/L [facility] Urea nitrogen [Mass/Vol] 17 mg/dL 7 - 17 mg/dL [facility] Consulton 03-01-2023 Consult [facility] Wound Care CONSULT Note Radha Sandoval [...] 2 diabetes mellitus with hyperglycemia ([facility]) 01/16/2020 Morbidly obese ([facility]) 01/16/2020 Vitamin D deficiency 01/16/2020 Moderate episode of recurrent major depressive disorder ([facility]) 06/03/2019 OAB (overactive bladder) 05/06/2021 Localized edema 10/01/2020 Insomnia 04/06/2015 Dyspnea on exertion 09/09/2021 Muscle spasms of both lower extremities 09/09/2021 Chronic renal insufficiency, stage III (moderate) ([facility]) 06/03/2019 Restless legs syndrome (RLS) [...] Depression Dietary counseling and surveillance Hyperlipidemia Hyperparathyroidism ([facility]) Malaise and fatigue Morbid obesity ([facility]) Muscle weakness Nevus, non-neoplastic Pain in limb Pure hypercholesterolemia RLS (restless legs syndrome) Type 2 diabetes mellitus (HCC) Varicella PAST SURGICAL HISTORY Past Surgical History: Procedure Laterality Date APPENDECTOMY CHOLECYSTECTOMY 1979 COLONOSCOPY 06/19/2008 COLONOSCOPY W/ BIOPSIES AND POLYPECTOMY N/A 12/07/2022 Performed by Avery Marshall DO at [facility] ENDOSCOPY EYE SURGERY Bilateral early 90's [...] tablet 0 ergocalciferol (Vitamin D-2) 1.25 MG (20316 UT) capsule Take 1 capsule (1.25 mg) by mouth 1 (one) time per week. 90 capsule 1 Glucose Blood (Blood Glucose Test) strip 4 times daily. hydrOX (more content not included)... Normal [facility] Consult [facility] Medical [facility] Geriatric Medicine Inpatient Consult Service Admission Date: 02/28/2023 Admission Status: INPATIENT Chief Complaint: "I couldn't get around and they directed me to the hospital because I was peeing constantly from that UTI." Reason for Appointment Geriatrics consulted for "functional decline" Assessment/Plan Principal Problem: LING (acute kidney injury) (CMS/[facility]) ([facility]) Active Problems: Declining functional status [...] necessary I recommended follow up at our [facility] at [phone]. Call in 2 weeks for memory (re)testing once acute issue(s) resolve - order placed [facility] for follow-up Other I deferred full MMSE [...] overnight. Awo (more content not included)... Normal [facility] Consult This patient is not [...] associated supplies are needed. Thank you. Elder MUÑOZ,BSN,[facility] Consult Department of Research Program Internship al Medicine Division of Endocrinology, Diabetes, & Metabolism Endocrinology Note Patient Name: Radha Sandoval : 1945 AGE: 77 y.o. [facility] Admission Date: 02/28/2023 Visit Date: 03/01/2023 Reason for Endocrine Consult: DM-Uncontrolled Provider/Team Requesting Consult: Dr. Finch PCP: Shiv Lopez MD Outpt [employer] Blanket Machine Feeder: No ASSESSMENT: Type II diabetes with hyperglycemia, with long-term insulin use Postoperative hypothyroidism PLAN: Humalog 6 [...] diagnosis. She has been having diarrhea in [id number], smt severe Glimepiride- started in 2015 Trulicity [...] Heart s (more content not included)... Normal [facility] HEMOGLOBIN A1Con 03-01-2023 Glucose [Mass/Vol] 315 mg/dL Normal [facility] Comment on above: Performed By: #### L [id number] ####[employer] Operator: MARTIN REYES ([id number])[facility] ([facility])[address] [place] [address] HbA1c (Bld) [Mass fraction] 12.6 % High <5.7 [facility] Comment on above: Result Comment: Norm al less than 5.7% Prediabetes 5.7% to 6.4% Diabetes 6.5% or higher --HgbA1C levels may not be accurate in patients who have renal disease, received recent blood transfusions, are anemic, or who have dyshemoglobinemia. Performed By: #### L AB90 ####[employer] Operator: MARTIN REYES ([id number])[facility] ([facility])[address] [place] [address] HbA1c (Bld) [Mass fraction]o n 03-01-2023 Average glucose Estimated from glycated hemoglobin (Bld) [Mass/Vol] 315 mg/dL [facility] Interpretation and review of laboratory results Abnormal [facility] Hemoglobin A1con 03-01-2023 HbA1c (Bld) [Mass fraction] 12.6 % High NINF - 5.7 % [facility] Comment on above: Normal less than 5.7 % Prediabetes 5.7% to 6.4% Diabetes 6.5% or higher --HgbA1C levels may not be accurate in patients who have renal disease, received recent blood transfusions, are anemic, or who have dyshemoglobinemia. POCT glucose meteron 023 Glucose [Mass/Vol] 194 mg/dL High 70 - 100 mg/dL [facility] Interpretation and review of laboratory results Abnormal [facility]formed by: [facility], [address] [facility] [address] CLIA ID: [id number] [facility] Glucose [Mass/Vol] 95 mg/dL 70 - 100 mg/dL [facility] Interpretation and review of laboratory results Normal [facility] Performed by: [facility], [address] [facility] [address] CLIA ID: [id number] [facility] Glucose [Mass/Vol] 153 mg/dL High 70 - 100 mg/dL [facility] Interpretation and review of laboratory results Abnormal [facility] Performed by: [facility], [address] [facility] [address] CLIA ID: [id number] [facility] Glucose [Mass/Vol] 172 mg/dL High 70 - 100 mg/dL [facility] Interpretation and review of laboratory results Abnormal [facility] Performed by: [facility], [address] [facility] [address] CLIA ID: [id number] [facility] PROCALCITONIN TESTon 023 PROCALCITONIN 0.05 ng/mL Normal 0.00-0.09 [facility] Comment on above: Result Comment: ORDE R COMMENTS: PCT <0.50 = Low risk of severe sepsis and/or septic shock. PCT >2.00 = High risk of severe sepsis and/or septic shock. Performed By: #### L [id number] ####[employer] Operator: ASHLEY LLANOS ([id number])[facility] ([facility])[address] [place] [address] Procalcitonin Teston 023 Procalcitonin [Mass/Vol] 0.05 ng/mL 0.00 - 0.09 ng/mL [facility] Procalcitonin [Mass/Vol]on 0 03-01-2023 Interpretation and review of laboratory results Normal [facility] PCT <0.50 = Low risk of severe sepsis and/or septic shock. PCT >2.00 = High risk of severe sepsis and/or septic shock. [facility] Progress Noteon 03-01-2023 Progress Note Physical Therapy Facility/Department: [address] Physical Therapy Initial Evaluation NAME: Radha Sandoval : 1945 Date of Service: 03/01/2023 Discharge Recommendations: Detention Facility, Continue to assess pending progress PT [...] LING (acute kidney injury) (CMS/HCC) ([facility]). Diagnoses of Pyelonephritis, Polypharmacy, Insomnia, unspecified type, and Pressure ulcer of right buttock, stage 3 ([facility]) were also pertinent to this visit. has a past medical history of Acquired lymphedema, Allergic, Anxiety, Arthritis, Asthma, Candidiasis of vulva and vagina, CKD (chronic kidney disease), Depression, Dietary counseling and surveillance, Hyperlipidemia, Hyperparathyroidism (HCC), Hypertension, Hypothyroidism, Malaise and fatigue, Morbid obesity (HCC), Muscle weakness, Nevus, non-neoplastic, Pain in limb, Pure hypercholesterolemia, RLS (restless legs syndrome), Type 2 diabetes mellitus ([facility]), and Varicella. has a past [...] Device: straight cane Transfer Assistance: Independent Active Blanking Press Operator: Yes Objective Observation/Palpation Posture: Good Observation: PIV [...] from lucy (more content not included)... Normal [facility] Progress Note Occupational Therapy OCCUPATIONAL THERAPY [facility] ED's Initial Evaluation Name/MRN: Radha Sandoval ([id number]) Evaluation Date: 03/01/2023 Date of : 1945 [...] 12/07/2022 Performed by Avery Marshall DO at [facility] ENDOSCOPY EYE SURGERY Bilateral early 90 LUNG REMOVAL, PARTIAL Left ROTATOR CUFF REPAIR Left TONSILLECTOMY Admission Diagnosis: Patient Active Problem List Diagnosis Date Noted LING (acute kidney injury) ([facility]/HCC) (HCC) 02/28/2023 Acute cystitis with hematuria [...] 2 diabetes mellitus with hyperglycemia ([facility]) 01/16/2020 Morbidly obese ([facility]) 01/16/2020 Vitamin D deficiency 01/16/2020 Moderate episode of recurrent major depressive disorder ([facility]) 06/03/2019 Chronic renal insufficiency, stage III (moderate) ([facility]) 06/03/2019 Hyperlipidemia with target LDL [...] Responsibilities: Independent Receives Help From: None Active Blanking Press Operator: Yes Prior Level of Function ADL Assistance: [...] Adls. Upper Ext (more content not included)... Normal [facility] 36on 02-28-2023 36 Noted. Patient sana mendenhall notified. See previous TE if needed. Normal [facility] 36 Called and spoke wit h patient. [...] states that she will be going to [facility]. Normal [facility] 36 S: Christine from [employer] [phone] spoke with [facility] nurse regarding critical lab results B: Glucose [...] results Protocols used: PCP Call - No [facility] CARECOORDon 02-28-2023 CARECOORD Next Site of Care Admission Date: 02/28/2023 11:30 AM Patient Name: RADHA SANDOVAL Location: [facility] 1E MED SURG/[facility] [id number] Date of : 1945 - Placement Information - Referral Type:Correction/SNF - New Referral ID:[id number] Provider Name:[facility] Transitional Care Unit [facility] Address 1:[address] Address 2: City:[place] Selection Factors:Patient/Family Choice State:[facility] CBC W Auto Differential pane l (Bld)Ordered By: Clayton Lozano on 02-28-2023 Basophils (Bld) [#/Vol] 0.1 10*3/uL 0.0 - 0.2 10*3/uL [facility] Basophils/100 WBC (Bld) 0.5 % 0.0 - 2.0 % [facility] Eosinophils (Bld) [#/Vol] 0.1 10*3/uL 0.0 - 0.5 10*3/uL [facility] Eosinophils/100 WBC (Bld) 0.9 % Low 1.0 - 6.0 % [facility] Erythrocyte distribution width (RBC) [Ratio] 13.8 % 11.5 - 14.5 % [facility] Hematocrit (Bld) [Volume fraction] 36.0 % 35.0 - 47.0 % [facility] Hemoglobin (Bld) [Mass/Vol] 11.5 g/dL Low 11.7 - 16.0 g/dL [facility] Interpretation and review of laboratory results Abnormal [facility] Lymphocytes (Bld) [#/Vol] 0.8 10*3/uL Low 1.0 - 4.3 10*3/uL [facility] Lymphocytes/100 WBC (Bld) 6.4 % Low 20.0 - 40.0 % [facility] MCH (RBC) [Entitic mass] 28.0 pg 26.0 - 34.0 pg [facility] MCHC (RBC) [Mass/Vol] 32.0 % 32.0 - 36.0 % [facility] MCV (RBC) [Entitic vol] 87.5 fL 80.0 - 98.0 fL [facility] Monocytes (Bld) [#/Vol] 1.1 10*3/uL High 0.0 - 0.8 10*3/uL [facility] Monocytes/100 WBC (Bld) 9.0 % 2.0 - 10.0 % [facility] Neutrophils (Bld) [#/Vol] 10.2 10*3/uL High 1.8 - 7.0 10*3/uL [facility] Neutrophils/100 WBC (Bld) 83.2 % High 40.0 - 80.0 % [facility] Nucleated RBC/100 WBC (Bld) [Ratio] 0.0 % [facility] Platelet mean volume (Bld) [Entitic vol] 8.6 fL 7.4 - 12.4 fL [facility] Platelets (Bld) [#/Vol] 278 10*3/uL 140 - 440 10*3/uL [facility] RBC (Bld) [#/Vol] 4.11 10*6/uL 3.8 - 5.20 10*6/uL [facility] WBC (Bld) [#/Vol] 12.3 10*3/uL High 3.6 - 10.7 10*3/uL [facility] CBC WITH AUTO DIFFERENTIALon 02-28-2023 Basophils (Bld) [#/Vol] 0.1 10*3/uL Normal 0.0-0.2 [facility] Comment on above: Performed By: #### L [id number] ####[employer] Operator: MARTIN REYES ([id number])[facility] ([facility])[address] [place] [address] Basophils/100 WBC (Bld) 0.5 % Normal 0.0-2.0 S [facility] Comment on above: Performed By: #### L [id number] ####[employer] Operator: MARTIN REYES ([id number])[facility] ([facility])[address] [place] [address] Eosinophils (Bld) [#/Vol] 0.1 10*3/uL Normal 0.0-0.5 [facility] Comment on above: Performed By: #### L [id number] ####[employer] Mill Operator: MARTIN REYES ([id number])[facility] ([facility])[address] [place] [address] Eosinophils/100 WBC (Bld) 0.9 % Low 1.0-6.0 [facility] Comment on above: Performed By: #### L [id number] ####[employer] Operator: MARTIN REYES ([id number])[facility] ([facility])[address] [place] [address] Erythrocyte distribution width (RBC) [Ratio] 13.8 % Normal 11.5-14.5 [facility] Comment on above: Performed By: #### L [id number] ####[employer] Operator: MARTIN ERIC ([id number])[facility] [place] (SB[facility])[address] ERYTHROCYTE MEAN CORPUSCULAR HEMOGLOBIN CONCENTRATION (G/DL) BY AUTOMATED 32.0 % Normal 32.0-36.0 [facility] Comment on above: Performed By: #### L [id number] ####[employer] Operator: MARTIN ERIC ([id number])[facility] [place] (SBHL[facility])[address] Hematocrit (Bld) [Volume fraction] 36.0 % Normal 35.0-47.0 [facility] Comment on above: Performed By: #### L [id number] ####[employer] Mill Operator: MARTIN ERIC ([id number])[facility] (SBHLAB)[address] Hemoglobin (Bld) [Mass/Vol] 11.5 g/dL Low 11.7-16.0 [facility] Comment on above: Performed By: #### L [id number] ####[employer] Operator: MARTIN AMBROSEJOSE R ([id number])[facility] (SBHL[facility])[address] Lymphocytes (Bld) [#/Vol] 0.8 10*3/uL Low 1.0-4.3 [facility] Comment on above: Performed By: #### L [id number] ####[employer] Operator: MARTIN REYES ([id number])[facility] [place] (SB[facility])[address] [place] [address] [place] Lymphocytes/100 WBC (Bld) 6.4 % Low 20.0-40.0 [facility] Comment on above: Performed By: #### L [id number] ####[employer] Operator: MARTIN AMBROSEJOSE R ([id number])[facility] [place] ([facility])[address] MCH (RBC) [Entitic mass] 28.0 pg Normal 26.0-34.0 [facility] Comment on above: Performed By: #### L [id number] ####[employer] Operator: MARTIN AMBROSEJOSE R ([id number])[facility] [place] (SBHL[facility])[address] MCV (RBC) [Entitic vol] 87.5 fL Normal 80.0-98.0 [facility] Comment on above: Performed By: #### L [id number] ####[employer] Operator: MARTIN HUAGITAJOSE R ([id number])[facility] [place] (SB[facility])[address] Monocytes (Bld) [#/Vol] 1.1 10*3/uL High 0.0-0.8 [facility] Comment on above: Performed By: #### L [id number] ####[employer] Operator: MARTIN HUAWILFREDO ([id number])[facility] [place] ([facility])[address] Monocytes/100 WBC (Bld) 9.0 % Normal 2.0-10.0 [facility] Comment on above: Performed By: #### L [id number] ####[employer] Operator: MARTIN AMBROSEJOSE R ([id number])[facility] [place] ([facility])[address] Neutrophils (Bld) [#/Vol] 10.2 10*3/uL High 1.8-7.0 [facility] Comment on above: Performed By: #### L [id number] ####[employer] Mill Operator: MARTIN AMBROSEJOSE R ([id number])[facility] [place] ([facility])[address] Neutrophils/100 WBC (Bld) 83.2 % High 40.0-80.0 [facility] Comment on above: Performed By: #### L [id number] ####[employer] Mill Operator: MARTIN REYES ([id number])[facility] [place] ([facility])[address] [place] [address] [place] NRBC (PER 100 WBCS) BY AUTOMATED COUNT 0.0 /100 WBCs Normal 0.0-2.0 [facility] Comment on above: Performed By: #### L [id number] ####[employer] Mill Operator: MARTIN REYES ([id number])[facility] [place] ([facility])[address] Platelet mean volume (Bld) [Entitic vol] 8.6 fL Normal 7.4-12.4 [facility] Comment on above: Performed By: #### L [id number] ####[employer] Mill Operator: MARTIN REYES ([id number])[facility] [place] ([facility])[address] PLATELETS (10*3/UL) IN BLOOD AUTOMATED COUNT 278 10*3/uL Normal 140-440 [facility] Comment on above: Performed By: #### L [id number] ####[employer] T[employer] Mill Operator: MARTIN REYES ([id number])[facility] [place] ([facility])[address] RBC (Bld) [#/Vol] 4.11 10*6/uL Normal 3.8-5.20 [facility] Comment on above: Performed By: #### L [id number] ####[employer] Mill Operator: MARTIN REYES ([id number])[facility] [place] ([facility])[address] WBC (Bld) [#/Vol] 12.3 10*3/uL High 3.6-10.7 [facility] Comment on above: Performed By: #### L [id number] ####[employer] Operator: MARTIN REYES ([id number])[facility] [place] ([facility])[address] COMPLETE URINALYSISon 2022 BACTERIA (#/HPF) IN URINE Moderate Abnormal Negative [facility] Comment on above: Performed By: #### L [id number] ####[employer] Mill Operator: MARTIN REYES ([id number])[facility] [place] ([facility])[address] BILIRUBIN, TOTAL PRESENCE IN URINE Negative Normal Negative [facility] Comment on above: Performed By: #### L [id number] ####Se[employer] T[employer] Mill Operator: MARTIN REYES ([id number])[facility] ([facility])[address] Clarity (U) Turbid Abnormal Clear [facility] Comment on above: Performed By: #### L [id number] ####[employer] T[employer] Mill Operator: MARTIN REYES ([id number])[facility] ([facility])[address] Color (U) Light Yellow Normal Lt. Yellow [facility] Comment on above: Performed By: #### L [id number] ####Se[employer]less Tube Mill Operator: MARTIN REYES ([id number])[facility] ([facility])[address] [place] [address] GLUCOSE (MG/DL) IN URINE >1,000 Abnormal Normal (<70) [facility] Comment on above: Performed By: #### L [id number] ####Se[employer] T[employer] Mill Operator: MARTIN REYES ([id number])[facility] [place] ([facility])[address] [place] [address] [place] GRANULAR CASTS (#/LPF) IN URINE 0-2 Abnormal Negative [facility] Comment on above: Performed By: #### L [id number] ####Se[employer] Tube Mill Operator: MARTIN REYES ([id number])[facility] ([facility])[address] HEMOGLOBIN PRESENCE IN URINE Negative Normal Negative [facility] Comment on above: Performed By: #### L [id number] ####Se[employer] T[employer] Mill Operator: MARTIN REYES ([id number])[facility] [place] ([facility])[address] [place] [address] [place] HYALINE CASTS (#/LPF) IN URINE SEDIMENT BY MICROSCOPY 3-5 Abnormal Negative [facility] Comment on above: Performed By: #### L [id number] ####[employer] Operator: MARTIN REYES ([id number])[facility] [place] (SBHLAB)[address] Ketones Ql (U) Negative Normal Negative [facility] Comment on above: Performed By: #### L AB347 ####[employer] Operator: MARTIN REYES ([id number])[facility] (SBHLAB)[address] LEUKOCYTE ESTERASE PRESENCE IN URINE BY TEST STRIP 250 Sandeep/uL Abnormal Negative [facility] Comment on above: Performed By: #### L AB347 ####[employer] Operator: MARTIN ERIC ([id number])[facility] (SBHLAB)155 [place] [address] [place] MUCUS (#/LPF) IN URINE SEDIMENT Few Normal Negative [facility] Comment on above: Performed By: #### L AB347 ####[employer] Operator: MARTIN AMBROSEJOSE R ([id number])[facility] (SBHL[facility])[address] NITRITE PRESENCE IN URINE Positive Abnormal Negative [facility] Comment on above: Performed By: #### L AB347 ####[employer] Operator: MARTIN ABMROSEJOSE R ([id number])[facility] (SBHLAB)[address] pH (U) 5.0 [pH] Normal 5.0-8.0 [facility] Comment on above: Performed By: #### L AB347 ####[employer] Operator: MARTIN AMBROSEJOSE R ([id number])[facility] (SBHLAB)[address] Protein (U) [Mass/Vol] 20 mg/dL Abnormal Negative [facility] Comment on above: Performed By: #### L AB347 ####[employer] Operator: MARTIN ERIC ([id number])[facility] (SBHLAB)[address] RBC (#/HPF) IN URINE SEDIMENT 0-2 Normal 0-2 [facility] Comment on above: Performed By: #### L AB347 ####[employer] Operator: MARTIN REYES ([id number])[facility] [place] (SBHLAB)[address] Specific gravity (U) [Rel density] 1.020 Normal 1.005-1.030 [facility] Comment on above: Performed By: #### L AB347 ####[employer] Operator: MARTIN REYES ([id number])[facility] [place] (SBHLAB)[address] [place] [address] [place] SQUAMOUS EPITHELIAL CELLS (#/HPF) IN URINE SEDIMENT 3-5 Normal 3-5 [facility] Comment on above: Performed By: #### L AB347 ####[employer] Operator: MARTIN REYES ([id number])[facility] (SBHLAB)[address] UROBILINOGEN (MG/DL) IN URINE Normal Normal Normal (0-1) [facility] Comment on above: Performed By: #### L AB347 ####[employer] Operator: MARTIN REYES ([id number])[facility] [place] (SBHLAB)[address] [place] [address] [place] WBC (LEUKOCYTE) (#/HPF) IN URINE SEDIMENT 11-25 Abnormal 0-5 [facility] Comment on above: Performed By: #### L AB347 ####[employer] Operator: MARTIN REYES ([id number])[facility] [place] (SBHLAB)[address] [place] [address] [place] WBC (LEUKOCYTE) CLUMPS (#/HPF) IN URINE SEDIMENT Occasional Abnormal Negative [facility] Comment on above: Performed By: #### L AB347 ####[employer] Operator: MARTIN REYES ([id number])[facility] [place] (SBHLAB)[address] [place] [address] [place] YEAST (#/HPF) IN URINE Few Abnormal Negative [facility] Comment on above: Performed By: #### L AB347 ####[employer] Operator: MARTIN REYES ([id number])[facility] [place] (SBHLAB)[address] COMPREHENSIVE METABOLIC PANE Real 02-28-2023 Albumin [Mass/Vol] 3.7 g/dL Normal 3.5-5.0 [facility] Comment on above: Performed By: #### L AB17 ####[employer] Operator: MARTIN REYES ([id number])[facility] [place] (SBHLAB)[address] ALP [Catalytic activity/Vol] 119 U/L Normal 38-126 [facility] Comment on above: Performed By: #### L AB17 ####[employer] Operator: MARTIN REYES ([id number])[facility] [place] (SBHLAB)[address] ALT [Catalytic activity/Vol] 18 U/L Normal 0-34 [facility] Comment on above: Performed By: #### L AB17 ####[employer] Operator: MARTIN REYES ([id number])[facility] [place] (SBHLAB)[address] Anion gap [Moles/Vol] 8 mmol/L Normal 3-13 [facility] Comment on above: Performed By: #### L AB17 ####[employer] Operator: MARTIN REYES ([id number])[facility] [place] (SBHLAB)[address] AST [Catalytic activity/Vol] 24 U/L Normal 15-46 [facility] Comment on above: Performed By: #### L AB17 ####[employer] Operator: MARTIN REYES ([id number])[facility] [place] (SBHLAB)[address] [place] [address] [place] Bilirubin [Mass/Vol] 0.5 mg/dL Normal 0.2-1.3 [facility] Comment on above: Performed By: #### L AB17 ####[employer] Operator: MARTIN REYES ([id number])[facility] [place] (SBHLAB)[address] Calcium [Mass/Vol] 8.4 mg/dL Normal 8.4-10.4 [facility] Comment on above: Performed By: #### L AB17 ####[employer] Operator: MARTIN REYES ([id number])[facility]ENTERD[facility] [place] (SBHLAB)[address] Chloride [Moles/Vol] 96 mmol/L Low 98-107 [facility] Comment on above: Performed By: #### L AB17 ####[employer] Operator: MARTIN REYES ([id number])[facility] [place] (SBHLAB)[address] CO2 [Moles/Vol] 26 mmol/L Normal 22-30 [facility] Comment on above: Performed By: #### L AB17 ####[employer] Operator: MARTIN REYES ([id number])[facility]ENTER[facility] [place] (SBHLAB)[address] Creatinine [Mass/Vol] 1.22 mg/dL High 0.52-1.04 [facility] Comment on above: Performed By: #### L AB17 ####[employer] Operator: MARTIN REYES ([id number])[facility] [place] (SBHLAB)[address] GLOMERULAR FILTRATION RATE ML/MIN/1.73 SQ M.PREDICTED 45.2 mL/min/1.73m*2 Low >60.0 [facility] Comment on above: Result Comment: Calc ulation based on the Chronic Kidney Disease Epidemiology Collaboration (CKD-EPI) equation refit without adjustment for race Performed By: #### L AB17 ####[employer] Operator: MARTIN REYES ([id number])[facility]ENTER[facility] [place] (SBHLAB)[address] [place] [address] [place] Glucose [Mass/Vol] 483 mg/dL Critically high 70-100 [facility] Comment on above: Performed By: #### L AB17 ####[employer] Operator: MARTIN REYES ([id number])[facility] (SBHLAB)[address] Potassium [Moles/Vol] 4.0 mmol/L Normal 3.5-5.1 [facility] Comment on above: Performed By: #### L AB17 ####[employer] Operator: MARTIN REYES ([id number])[facility] (SBHLAB)[address] Protein [Mass/Vol] 6.6 g/dL Normal 6.3-8.2 [facility] Comment on above: Performed By: #### L AB17 ####[employer] Operator: MARTIN REYES ([id number])[facility] (SBHLAB)[address] Sodium [Moles/Vol] 130 mmol/L Low 135-145 [facility] Comment on above: Performed By: #### L AB17 ####[employer] Operator: MARTIN REYES ([id number])[facility] (SBHLAB)[address] Urea nitrogen [Mass/Vol] 20 mg/dL High 7-17 [facility] Comment on above: Performed By: #### L AB17 ####[employer] Operator: MARTIN REYES ([id number])[facility] (SBHLAB)[address] ABDOMEN PELVIS [facility] ABDOMEN PELVIS WO IV CONTRAST [...] back pain and burning with urination Normal [facility] CT Abdomen WO contraston Colonic diverticulosis without evidence of acute diverticulitis. Bilateral renal cysts, the largest cyst is on the left measuring up to 4.8 cm. Report Dictated on Electronically Signed By: Jb Ahmadi DO Electronically Signed Date/Time: 02/28/2023 1:44 PM EDT [facility] 1945 [id number] Exam Date/Time: 02/28/2023 13:07 Procedure: CT ABDOMEN [...] aorta and iliac arteries are noted. [facility] [employer]Layer Jb Ahmadi DO - 02/28/2023 Patient Name: RAD[facility] 1945 [id number] Exam Date/Time: 02/28/2023 13:07 Procedure: CT ABDOMEN [...] Electronically Signed Date/Time: 02/28/2023 1:44 PM EDT [facility] Radiology Study observation (narrative) [facility] alth CT Abdomen WO contrastOrdere d By: Jb Ahmadi on 02-28-2023 [facility] Work Phone: Comprehensive metabolic 1998 panelOrdered By: Azucena Li on 02-28-2023 Albumin [Mass/Vol] 3.7 g/dL 3.5 - 5.0 g/dL [facility] ALP [Catalytic activity/Vol] 119 U/L 38 - 126 U/L [facility] ALT [Catalytic activity/Vol] 18 U/L 0 - 34 U/L [facility] Anion gap [Moles/Vol] 8 mmol/L 3 - 13 mmol/L [facility] AST [Catalytic activity/Vol] 24 U/L 15 - 46 U/L [facility] Bilirubin [Mass/Vol] 0.5 mg/dL 0.2 - 1 .3 mg/dL [facility] Calcium [Mass/Vol] 8.4 mg/dL 8.4 - 10. 4 mg/dL [facility] Chloride [Moles/Vol] 96 mmol/L Low 98 - 10 7 mmol/L [facility] CO2 [Moles/Vol] 26 mmol/L 22 - 30 mmol/L [facility] Creatinine [Mass/Vol] 1.22 mg/dL High 0.52 - 1.04 mg/dL [facility] GFR/1.73 sq M.predicted MDRD (S/P/Bld) [Vol rate/Area] 45.2 mL/min/{1.73_m2} Low - PINF [facility] th Comment on above: Calculation based on the Chronic Kidney Disease Epidemiology Collaboration (CKD-EPI) equation refit without adjustment for race Glucose [Mass/Vol] 483 mg/dL Critically high 70 - 1 00 mg/dL [facility] Interpretation and review of laboratory results Abnormal [facility] Potassium [Moles/Vol] 4.0 mmol/L 3.5 - 5.1 mmol/L [facility] Protein [Mass/Vol] 6.6 g/dL 6.3 - 8.2 g/dL [facility] Sodium [Moles/Vol] 130 mmol/L Low 135 - 145 mmol/L [facility] Urea nitrogen [Mass/Vol] 20 mg/dL High 7 - 17 mg/dL [facility] ED Nursing Noteon 02-28-2023 ED Nursing Note Pt presents for admission per her PCP. Was sent to get kidneys evaluated per pt. Pt endorses lower back pain and burning and pain with urination. Was recently admitted. Normal [facility] ED Provider Noteon ED Provider Note [facility] 1E MED SURG EMERGENCY DEPARTMENT ENCOUNTER [...] 12/07/2022 Performed by Avery Marshall DO at [facility] ENDOSCOPY EYE SURGERY Bilateral early LUNG [...] shoulder pain ergocalciferol (Vitamin D-2) 1.25 MG (42865 UT) capsule Take 1 capsule (1.25 mg) [...] Onset Mental illness Mother GHANSHYAM VIANCA Depression Moth (more content not included)... Normal [facility] POCT glucose meteron 023 Glucose [Mass/Vol] 245 mg/dL High 70 - 100 mg/dL [facility] Interpretation and review of laboratory results Abnormal [facility] Performed by: [facility], [address] [place] [address] CLIA ID: [id number] [facility] Glucose [Mass/Vol] 197 mg/dL High 70 - 100 mg/dL [facility] Interpretation and review of laboratory results Abnormal [facility] Performed by: [facility] [place] [facility], [address] [facility] [address] CLIA ID: [id number] [facility] URINE CULTUREon 02-28-2023 Bacteria identified [...] Non-susceptible NO = No Interpretation ] Normal [facility] Comment on above: Performed By: #### L AB239 ####[employer] Operator: ASHLEY LLANOS ([id number])[facility] (SACLAB)[address] [place] [address] Urinalysis complete panel (U )on 02-28-2023 Bacteria LM.HPF (Urine sed) [#/Area] Moderate Abnormal Negative /HPF [facility] Bilirubin Ql (U) Negative Negative mg/dL [facility] Clarity (U) Turbid Abnormal Clear [facility] Color (U) Light Yellow Lt. Yellow [facility] Epithelial cells.squamous LM.HPF (Urine sed) [#/Area] 3-5 [facility] h Glucose Ql (U) >1,000 Abnormal Normal (<70) mg/dL [facility] Granular casts LM.HPF (Urine sed) [#/Area] 0-2 Abnormal Negative /LPF [facility] Hemoglobin Ql (U) Negative Negative mg/dL [facility] Hyaline casts Auto (Urine sed) [#/Area] 3-5 Abnormal Negative /LPF [facility] Interpretation and review of laboratory results Abnormal [facility] Ketones (U) [Mass/Vol] Negative Negat katherine mg/dL [facility] Leukocyte clumps LM.HPF (Urine sed) [#/Area] Occasional Abnormal Negative /HPF [facility] Leukocyte esterase Test strip Ql (U) 250 Abnormal Negative Sandeep/uL [facility] Mucus LM.HPF (Urine sed) [#/Area] Few Negative /LPF [facility] Nitrite Ql (U) Positive Abnormal Negative [facility] th pH (U) 5.0 [pH] 5.0 - 8.0 pH [facility] Protein (U) [Mass/Vol] 20 mg/dL Abnormal Negative [facility] RBC LM.HPF (Urine sed) [#/Area] 0-2 [facility] Specific gravity (U) [Rel density] 1.020 1.005 - 1.030 [facility] Urobilinogen (U) [Mass/Vol] Normal Normal (0-1) mg/dL [facility] WBC LM.HPF (Urine sed) [#/Area] 11-25 Abnormal [facility] Yeast.budding LM.HPF (Urine sed) [#/Area] Few Abnormal Negative /HPF [facility] 36on 02-27-2023 36 Rx sent Normal [facility] Glucose (Bld) [Mass/Vol]on 0 02-27-2023 Glucose Blood, POC 494 mg/dL [facility] Interpretation and review of laboratory results Abnormal [facility] Office Visiton 02-27-2023 Follow-up visit [id number] Radha Sandoval 1945 F Date Provider Department Center 02/27/2023 [id number] DIA [facility] Family History Problem Relation Age of Onset Mental illness Mother Depression Mother Heart disease Father High Blood Pressure Father Asthma Father Hypertension Father Diabetes Brother Family Status - Relation Status Age at Mother Father Brother Level of Service:94965 [place] OFFICE/OUTPATIENT ESTABLISHED MOD MDM 30-39 MIN Reason for Visit and Comments: Blood Sugar Problem [165663] Knee Pain [333025] Diarrhea [35] - Back Pain [12] Normal [facility] Progress Noteon 02-27-2023 Progress Note No fever or chills, abdomen soft. Unknown etiology. Will check CBC and CMP. Consider stool culture if symptoms continue Normal [facility] Progress Note We will check CMP today Normal [facility] Progress Note UA positive nitrites and leuks moderate blood, will start antibiotic therapy sent for culture Normal [facility] Progress Note Controlled. Continue amlodipine 10 mg daily and lisinopril 40 mg daily Normal [facility] Progress Note Will check TSH today due to recent fatigue Normal [facility] Progress Note Patient has not followed up with wound center upon visualization today wound unchanged, advised to keep area as clean as possible with frequent changes of incontinence pads Normal [facility] Progress Note Uncontrolled. Patien t having difficulties with compliance. Continue insulin regimen. Possible increased glucose due to urinary tract infection we will treat Normal [facility] Progress Note 02/27/2023 Radha Sandoval (: 1945) [...] her blood sugar today, noted In office [id number]-ly-hytr testing 494. Urination Increased frequency, dysuria intermittently. [...] out soon. Has Maximino (son) work in [employer]. He may be able to help her [...] Lopez MD ergocalciferol (Vitamin D-2) 1.25 MG (92111 UT) capsule Take 1 capsule (1.25 mg) [...] mouth daily. 01/13/23 04/13/23 Yes Katia Bridenthal, PUBLIC ADDRESS TECHNICIAN - [employer] lisinopril 40 MG tablet Take 1 tablet (40 mg) by mouth daily. 12/08/22 Yes Katia Bridenthal, PUBLIC ADDRESS TECHNICIAN - [employer] meloxicam (Mobic) 7.5 MG tablet Take 1 tablet (7.5 mg) by mouth daily. 02/07/23 Yes Katia Bridenthal, PUBLIC ADDRESS TECHNICIAN - [employer] PARoxetine (Paxil) 20 MG tablet Take 1 tablet (20 mg) by mouth every morning. 12/08/22 Yes Katia Bridenthal, PUBLIC ADDRESS TECHNICIAN - [employer] potassium chlor (more content not included)... Normal [facility] Progress Note Please see if she rodriguez s gone to ER. Call and encourage her to go if she hasn't yet. Normal [facility] Progress Note Patient was identifi ed by name and Date of . POCT glucose at [facility]-provider notified. Normal [facility] Urinalysis macro (dipstick) panel (U)on 02-27-2023 Bilirubin, UA Moderate [facility] Blood, UA Small [facility] Glucose, UA >1,000 [facility] Interpretation and review of laboratory results Abnormal [facility] Ketones, UA Trace [facility] Leukocytes, UA Moderate [facility] Nitrite, UA Positive [facility] pH, UA 6.0 [facility] Protein, UA Trace [facility] Spec Grav, UA 1.010 [facility], UA 0.2 [facility] He alth [facility] 36on 02-24-2023 36 S: Patient spoke wit h [facility] nurse regarding: Patient needs refill on Novolog. She is out of medication. B: Onset of symptoms/concern: today A: Pt states she needs refill of her Novolog pen, she is out. R: Pt is aware of message to provider for refill. Allergies and pharmacy verified. 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 Per YAZMIN Gracia Novolog Flexpen 16 units QID, 30 days, 0 refills. [facility], order pended on chart. Reason for Disposition [1] Prescription refill request for ESSENTIAL medicine (i.e., likelihood of harm to patient if not taken) AND [2] triager unable to refill per department policy Protocols used: Medication Refill and Renewal [facility] Patient is out of medication. [...] prior to picking up the medication: Yes [place] [address] Noted. Agree with disposition. [place] [address] Sent a secure chat t chelsey [employer] she is working on the [employer]. [place] [address] S: Patient called [facility] clinical access [place] with complaint of elevated blood sugar B: [...] diabetes) Protocols used: Diabetes - High Blood [facility] 02-23-2023 36 faxed [place] [address] Not quite sure what that was all about but I guess I did which she told me to do instructions were kind of difficult to understand [place] [address] Re-printing and plac ing on your desk, need to resign next to original signature with the date and then initial next to Faby with the date. [place] [address] Faxed on 02/17/23 [facility] 36 S: Patient spoke wit h [facility] nurse regarding High Blood Sugar number possible [...] seen Protocols used: Diabetes - High Blood Lipye-XLFAL-OS [place] [address] Name of caller: Paula Contact phone number: [phone] Relationship to Patient: [facility] Diabetic Provider: Dr. Lopez Practice: [facility] Chief Complaint/Reason for Call: Paula from [facility] Diabetic states that they did receive Rx for Freestyle Evin, however it was not accepted due to the correction on the sign date. Paula is requesting that we please resend the Rx, have Provider resign it, and have the Drs initial next to the date as well. Rx can be sent to #[phone]. Please advise. Best time of day caller can be reached: Any Patient advised that office/PCP has 24-48 business hours to return their call: No [facility] 36on 02-17-2023 36 Noted. Fax put in burt x to go out [place] [address] Name of caller: Colette noel Contact phone number: [phone] Relationship to Patient: [facility] Provider: Dr. Lopez Practice: [facility] Chief Complaint/Reason for Call: Caller wanted to follow up regarding request for pt diabetic continuous glucose meter that was faxed on 02.02.2023. Caller stated they received the Rx but the Rx was incomplete. Caller would like to ask office to re write with doctors initial and fax again to: [phone]. Please advise. Thank you. Best time of day caller can be reached: Any Patient advised that office/PCP has 24-48 business hours to return their call: Yes [facility] PATINSon 02-15-2023 PATINS Return in 1 week rené Magallanes If you have any questions or concerns, please call our wound center at [phone] or [phone]. Offloading Try to avoid pressure and sheering [...] as diet tolerates, to help improve healing. [facility] 36on 02-14-2023 36 Notified. [facility] 36 Rx sent [place] [address] Spoke with patient s he found the bottle and it is the baclofen [place] [address] The only medications on her list and on her history it would have been used for cramps in her legs would have been her Mirapex and that 1 was just refilled in December for baclofen which is an actual muscle relaxer and that was refilled in December other than those I do not know what she would be talking about [place] [address] S: Patient spoke rené grover [facility] nurse regarding out of medication for muscle [...] policy Protocols used: Medication Refill and Renewal [id number] [facility] Office Visiton 02-07-2023 Follow-up visit [id number] Radha Sandoval 1945 F Date Provider Department Center 02/07/2023 [id number] DIA [facility] Family History Problem Relation Age of Onset Mental illness Mother Depression Mother Heart disease Father High Blood Pressure Father Asthma Father Hypertension Father Diabetes Brother Family Status - Relation Status Age at Mother Father Brother Level of Service:61719 [place] OFFICE/OUTPATIENT ESTABLISHED LOW MDM 20-29 MIN Reason for Visit and Comments: Sore [277617] - On buttocks-getting worse [facility] Progress Noteon 02-07-2023 Progress Note Chronic. Refill mobic. [facility] Progress Note Avoid pressure to ar ea, avoid friction, keep area as dry as possible. Refer to wound clinic. [facility] Progress Note 02/07/2023 Radha Sandoval (: 1945) is a 77 y.o. female , Established patient, here for evaluation of the following chief complaint(s): Sore (On buttocks-getting worse) ASSESSMENT/PLAN: 1. Wound of right buttock, subsequent encounter Assessment & Plan: Avoid pressure to area, avoid friction, keep area as dry as possible. Refer to wound clinic. Orders: - [facility] 2. Chronic left shoulder pain Assessment & Plan: Chronic. Refill mobic. Orders: - meloxicam (Mobic) 7.5 MG tablet; Take 1 tablet (7.5 mg) by mouth daily., Starting Mon02/07/2023, Normal Follow up for with primary care provider as scheduled. SUBJECTIVE/OBJECTIVE: LEONILA - Radha Sandoval (: 1945) [...] tablet (10 mg) by mouth daily. 12/08/22 Katiajareth Granados APRN - JORGE baclofen (Lioresal) 10 MG tablet Take 1 tablet (10 mg) by mouth daily. 01/13/23 Katia Granados APRN - JORGE ergocalciferol (Vitamin D-2) 1.25 MG (49495 UT) capsule Take 1 capsule (1.25 mg) by mouth 1 (one) time per week. 01/13/23 ELSA Arriaza CNP Glucose Blood (Blood Glucose Test) strip Test blood sugar 3 times a day.PLEASE FILL FOR TRUE METRIX TEST STRIPS 01/10/22 Historical Provider, hydrOXYzine HCl (Atarax) 25 MG tablet Take 1 tablet (25 mg) by mouth every 8 hours as needed for anxiety. 12/08/22 01/07/23 KatiaELSA Wesley CNP insulin aspart (NovoLOG FLEXPEN) 100 UNIT/ML pen Inject 16 Units under the skin. Before meals. 06/24/21 Historical Provider, levothyroxine (Synthroid, Levoxyl) 150 MCG tablet Take 1 tablet (150 mcg) by mouth daily. 01/13/23 04/13/23 Katia Granados APRN - JORGE lisinopril 40 MG tablet Take 1 tablet (40 mg) by mouth daily. 12/08/22 Katiajareth Granados APRN - JORGE PARoxetine (Paxil) 20 MG tablet Take 1 tablet (20 mg) by mouth every morning. 12/08/22 Katia Granados APRN - JORGE pramipexole (Mirapex) 0.125 MG tablet Take 2 tablets (0.25 mg) by mouth Nightly. 01/13/23 03/14/23 Katia PITO GranadosN - JORGE rosuvastatin (Crestor) 10 MG tablet Take 1 tablet (10 mg) by mouth daily. 12/08/22 Katia Granados APRN - JORGE senna-docusate sodium (Senokot-S) 8.6-50 MG tablet Take 1 tablet by mouth daily. 12/13/22 02/11/23 Katia Granados APRN - JORGE zolpidem (Ambien) 10 MG tablet Take 1 tablet (10 mg) by mouth Nightly as needed for sleep. Do not start before December 22, 2022. 12/22/22 01/21/23 ELSA Arraiza CNP Review of Systems Constitutional: Negative for [...] was used to authenticate this note. Katia Granados, PUBLIC ADDRESS TECHNICIAN - [employer]QU[employer]NER 02/07/2023 12:53 PM [facility] Progress Note Patient was identifi ed by name and Date of . PHARMACY VERIFIED WITH PATIENT-BRENDA RIVERA. [facility] 36on 02-06-2023 36 S: Pt calling CAC [...] splenectomy, organ transplant, chronic steroids) Protocols used: [id number] Normal [facility] Basic metabolic 1998 panelon 12-07-2022 Anion gap [Moles/Vol] 4 mmol/L 3 - 13 mmol/L [facility] Calcium [Mass/Vol] 7.2 mg/dL Low 8.4 - 10. 4 mg/dL [facility] Chloride [Moles/Vol] 110 mmol/L High 98 - 10 7 mmol/L [facility] CO2 [Moles/Vol] 24 mmol/L 22 - 30 mmol/L [facility] Creatinine [Mass/Vol] 0.63 mg/dL 0.52 - 1.04 mg/dL [facility] GFR/1.73 sq M.predicted MDRD (S/P/Bld) [Vol rate/Area] - PINF [facility] Comment on above: Calculation based on the Chronic Kidney Disease Epidemiology Collaboration (CKD-EPI) equation refit without adjustment for race Glucose [Mass/Vol] 182 mg/dL High 70 - 100 mg/dL [facility] Interpretation and review of laboratory results Abnormal [facility] Potassium [Moles/Vol] 3.3 mmol/L Low 3.5 - 5.1 mmol/L [facility] Sodium [Moles/Vol] 137 mmol/L 135 - 145 mmol/L [facility] Urea nitrogen [Mass/Vol] 14 mg/dL 7 - 17 mg/dL [facility] CBC panel Auto (Bld)Ordered By: Wendy Bruce on 12-07-2022 Erythrocyte distribution width (RBC) [Ratio] 13.8 % 11.5 - 14.5 % [facility] Hematocrit (Bld) [Volume fraction] 33.0 % Low 35.0 - 47.0 % [facility] Hemoglobin (Bld) [Mass/Vol] 10.6 g/dL Low 11.7 - 16.0 g/dL [facility] Interpretation and review of laboratory results Abnormal [facility] MCH (RBC) [Entitic mass] 29.3 pg 26.0 - 34.0 pg [facility] MCHC (RBC) [Mass/Vol] 32.2 % 32.0 - 36.0 % [facility] MCV (RBC) [Entitic vol] 90.8 fL 80.0 - 98.0 fL [facility] Platelet mean volume (Bld) [Entitic vol] 8.1 fL 7.4 - 12.4 fL [facility] Platelets (Bld) [#/Vol] 230 10*3/uL 140 - 440 10*3/uL [facility] RBC (Bld) [#/Vol] 3.63 10*6/uL Low 3.8 - 5.20 10*6/uL [facility] WBC (Bld) [#/Vol] 10.7 10*3/uL 3.6 - 10.7 10*3/uL [facility] Comprehensive metabolic 1998 panelon 12-07-2022 Albumin [Mass/Vol] 3.4 g/dL Low 3.5 - 5.0 g/dL [facility] ALP [Catalytic activity/Vol] 96 U/L 38 - 126 U/L [facility] ALT [Catalytic activity/Vol] 15 U/L 0 - 34 U/L [facility] Anion gap [Moles/Vol] 4 mmol/L 3 - 13 mmol/L [facility] AST [Catalytic activity/Vol] 40 U/L 15 - 46 U/L [facility] Bilirubin [Mass/Vol] 0.5 mg/dL 0.2 - 1 .3 mg/dL [facility] Calcium [Mass/Vol] 7.5 mg/dL Low 8.4 - 10. 4 mg/dL [facility] Chloride [Moles/Vol] 105 mmol/L 98 - 10 7 mmol/L [facility] CO2 [Moles/Vol] 27 mmol/L 22 - 30 mmol/L [facility] Creatinine [Mass/Vol] 0.76 mg/dL 0.52 - 1.04 mg/dL [facility] GFR/1.73 sq M.predicted MDRD (S/P/Bld) [Vol rate/Area] 79.8 mL/min/{1.73_m2} - PINF [facility] Comment on above: Calculation based on the Chronic Kidney Disease Epidemiology Collaboration (CKD-EPI) equation refit without adjustment for race Glucose [Mass/Vol] 188 mg/dL High 70 - 100 mg/dL [facility] Interpretation and review of laboratory results Abnormal [facility] Potassium [Moles/Vol] 3.4 mmol/L Low 3.5 - 5.1 mmol/L [facility] Protein [Mass/Vol] 6.2 g/dL Low 6.3 - 8.2 g/dL [facility] Sodium [Moles/Vol] 136 mmol/L 135 - 145 mmol/L [facility] Urea nitrogen [Mass/Vol] 10 mg/dL 7 - 17 mg/dL [facility] Hemoglobin (Bld) [Mass/Vol]O rdered By: Humphrey Juarez on 12-07-2022 Hematocrit (Bld) [Volume fraction] 33.8 % Low 35.0 - 47.0 % [facility] Interpretation and review of laboratory results Abnormal [facility] Hemoglobin (Bld) [Mass/Vol]o n 12-07-2022 Hematocrit (Bld) [Volume fraction] 33.6 % Low 35.0 - 47.0 % [facility] Interpretation and review of laboratory results Abnormal [facility] Hemoglobin (Bld) [Mass/Vol]O rdered By: Rosey Viera on 12-07-2022 Hematocrit (Bld) [Volume fraction] 32.0 % Low 35.0 - 47.0 % [facility] Interpretation and review of laboratory results Abnormal [facility] Laboratory - Chemistry and C hemistry - challengeon 12-07-2022 Magnesium [Mass/Vol] 1.3 mg/dL Low 1.6 - 2 .3 mg/dL [facility] Glucose [Mass/Vol] 179 mg/dL High 70 - 100 mg/dL [facility] Glucose [Mass/Vol] 158 mg/dL High 70 - 100 mg/dL [facility] Glucose [Mass/Vol] 160 mg/dL High 70 - 100 mg/dL [facility] Laboratory - Hematology and Cell countsOrdered By: Humphrey Juarez on 12-07-2022 Hemoglobin (Bld) [Mass/Vol] 10.9 g/dL Low 11.7 - 16.0 g/dL [facility] Laboratory - Hematology and Cell countson 12-07-2022 Hemoglobin (Bld) [Mass/Vol] 11.0 g/dL Low 11.7 - 16.0 g/dL [facility] Laboratory - Hematology and Cell countsOrdered By: Rosey Viera on 12-07-2022 Hemoglobin (Bld) [Mass/Vol] 10.4 g/dL Low 11.7 - 16.0 g/dL [facility] Magnesium [Mass/Vol]on 12-07 Interpretation and review of laboratory results Abnormal [facility] No Panel Informationon 12-07 Interpretation and review of laboratory results Abnormal [facility] Performed by: [facility], [address] [place] [address] CLIA ID: [id number] [facility] Interpretation and review of laboratory results Abnormal [facility] Performed by: [facility], [address] [place] [address] CLIA ID: [id number] [facility] Interpretation and review of laboratory results Abnormal [facility] Performed by: [facility], [address] [place] [address] CLIA ID: [id number] [facility] Basic metabolic 1998 panelon 12-06-2022 Anion gap [Moles/Vol] 2 mmol/L Low 3 - 13 mmol/L [facility] Calcium [Mass/Vol] 7.9 mg/dL Low 8.4 - 10. 4 mg/dL [facility] Chloride [Moles/Vol] 105 mmol/L 98 - 10 7 mmol/L [facility] CO2 [Moles/Vol] 26 mmol/L 22 - 30 mmol/L [facility] Creatinine [Mass/Vol] 0.68 mg/dL 0.52 - 1.04 mg/dL [facility] GFR/1.73 sq M.predicted MDRD (S/P/Bld) [Vol rate/Area] 88.7 mL/min/{1.73_m2} - PINF [facility] Comment on above: Calculation based on the Chronic Kidney Disease Epidemiology Collaboration (CKD-EPI) equation refit without adjustment for race Glucose [Mass/Vol] 169 mg/dL High 70 - 100 mg/dL [facility] Interpretation and review of laboratory results Abnormal [facility] Potassium [Moles/Vol] 3.5 mmol/L 3.5 - 5.1 mmol/L [facility] Sodium [Moles/Vol] 134 mmol/L Low 135 - 145 mmol/L [facility] Urea nitrogen [Mass/Vol] 18 mg/dL High 7 - 17 mg/dL [facility] CBC panel Auto (Bld)Ordered By: Donavan Hernandez on 12-06-2022 Erythrocyte distribution width (RBC) [Ratio] 13.7 % 11.5 - 14.5 % [facility] Hematocrit (Bld) [Volume fraction] 33.4 % Low 35.0 - 47.0 % [facility] Hemoglobin (Bld) [Mass/Vol] 11.1 g/dL Low 11.7 - 16.0 g/dL [facility] Interpretation and review of laboratory results Abnormal [facility] MCH (RBC) [Entitic mass] 29.7 pg 26.0 - 34.0 pg [facility] MCHC (RBC) [Mass/Vol] 33.2 % 32.0 - 36.0 % [facility] MCV (RBC) [Entitic vol] 89.5 fL 80.0 - 98.0 fL [facility] Platelet mean volume (Bld) [Entitic vol] 8.4 fL 7.4 - 12.4 fL [facility] Platelets (Bld) [#/Vol] 233 10*3/uL 140 - 440 10*3/uL [facility] RBC (Bld) [#/Vol] 3.73 10*6/uL Low 3.8 - 5.20 10*6/uL [facility] WBC (Bld) [#/Vol] 9.8 10*3/uL 3.6 - 10.7 10*3/uL [facility] Hemoglobin (Bld) [Mass/Vol]o n 12-06-2022 Hematocrit (Bld) [Volume fraction] 36.6 % 35.0 - 47.0 % [facility] Interpretation and review of laboratory results Normal [facility] Hematocrit (Bld) [Volume fraction] 34.3 % Low 35.0 - 47.0 % [facility] Interpretation and review of laboratory results Abnormal [facility] Hemoglobin (Bld) [Mass/Vol]O rdered By: Lizeth Mckeon on 12-06-2022 Hematocrit (Bld) [Volume fraction] 33.9 % Low 35.0 - 47.0 % [facility] Interpretation and review of laboratory results Abnormal [facility] Iron and Iron binding capaci ty panelon 12-06-2022 Interpretation and review of laboratory results Normal [facility] Iron [Mass/Vol] 87 ug/dL 37 - 170 ug/dL [facility] Iron binding capacity [Mass/Vol] 298 ug/dL 261 - 497 ug/dL [facility] Iron saturation [Mass fraction] 29 % 15 - 50 % [facility] Laboratory - Chemistry and C hemistry - challengeon 12-06-2022 Glucose [Mass/Vol] 183 mg/dL High 70 - 100 mg/dL [facility] Glucose [Mass/Vol] 258 mg/dL High 70 - 100 mg/dL [facility] Glucose [Mass/Vol] 238 mg/dL High 70 - 100 mg/dL [facility] Glucose [Mass/Vol] 160 mg/dL High 70 - 100 mg/dL [facility] Laboratory - Coagulationon 0 12-06-2022 aPTT Coag (PPP) [Time] 25.4 s 20.0 - 30.5 s [facility] INR Coag (PPP) [Relative time] 1.0 {INR} 0.9 - 1.1 [facility] Comment on above: Recommended Anticoag ulant [...] 11.2 s 9.0 - 1 2.0 s [facility] Laboratory - Hematology and Cell countson 12-06-2022 Hemoglobin (Bld) [Mass/Vol] 12.0 g/dL 11.7 - 16.0 g/dL [facility] Hemoglobin (Bld) [Mass/Vol] 11.3 g/dL Low 11.7 - 16.0 g/dL [facility] Laboratory - Hematology and Cell countsOrdered By: Lizeth Mckeon on 12-06-2022 Hemoglobin (Bld) [Mass/Vol] 11.0 g/dL Low 11.7 - 16.0 g/dL [facility] No Panel Informationon 12-06 Interpretation and review of laboratory results Abnormal [facility] Performed by: [facility], [address] [place] [address] CLIA ID: [id number] [facility] Interpretation and review of laboratory results Abnormal [facility] Performed by: [facility], [address] [place] [address] CLIA ID: [id number] [facility] Interpretation and review of laboratory results Abnormal [facility] Performed by: [facility], [address] [place] [address] CLIA ID: [id number] [facility] Interpretation and review of laboratory results Normal [facility] Interpretation and review of laboratory results Abnormal [facility] Performed by: [facility], [address] [place] [address] CLIA ID: [id number] [facility] Basic metabolic 1998 panelon 12-05-2022 Anion gap [Moles/Vol] 5 mmol/L 3 - 13 mmol/L [facility] Calcium [Mass/Vol] 8.7 mg/dL 8.4 - 10. 4 mg/dL [facility] Chloride [Moles/Vol] 102 mmol/L 98 - 10 7 mmol/L [facility] CO2 [Moles/Vol] 29 mmol/L 22 - 30 mmol/L [facility] Creatinine [Mass/Vol] 0.91 mg/dL 0.52 - 1.04 mg/dL [facility] GFR/1.73 sq M.predicted MDRD (S/P/Bld) [Vol rate/Area] 64.3 mL/min/{1.73_m2} - PINF [facility] Comment on above: Calculation based on the Chronic Kidney Disease Epidemiology Collaboration (CKD-EPI) equation refit without adjustment for race Glucose [Mass/Vol] 260 mg/dL High 70 - 100 mg/dL [facility] Interpretation and review of laboratory results Abnormal [facility] Potassium [Moles/Vol] 4.0 mmol/L 3.5 - 5.1 mmol/L [facility] Sodium [Moles/Vol] 136 mmol/L 135 - 145 mmol/L [facility] Urea nitrogen [Mass/Vol] 26 mg/dL High 7 - 17 mg/dL [facility] Blood type and Crossmatch pa rodney (Bld)on 12-05-2022 ABO group Nom (Bld) O [facility] Blood group antibody screen GEL Ql Negative [facility] D Ag Ql (RBC) Positive [facility] h [facility] CBC W Auto Differential pane l (Bld)Ordered By: Clayton Lozano on 12-05-2022 Basophils (Bld) [#/Vol] 0.1 10*3/uL 0.0 - 0.2 10*3/uL [facility] Basophils/100 WBC (Bld) 0.7 % 0.0 - 2.0 % [facility] Eosinophils (Bld) [#/Vol] 0.2 10*3/uL 0.0 - 0.5 10*3/uL [facility] Eosinophils/100 WBC (Bld) 2.0 % 1.0 - 6.0 % [facility] Erythrocyte distribution width (RBC) [Ratio] 13.9 % 11.5 - 14.5 % [facility] Hematocrit (Bld) [Volume fraction] 39.3 % 35.0 - 47.0 % [facility] Hemoglobin (Bld) [Mass/Vol] 12.9 g/dL 11.7 - 16.0 g/dL [facility] Interpretation and review of laboratory results Abnormal [facility] Lymphocytes (Bld) [#/Vol] 1.8 10*3/uL 1.0 - 4.3 10*3/uL [facility] Lymphocytes/100 WBC (Bld) 14.3 % Low 20.0 - 40.0 % [facility] MCH (RBC) [Entitic mass] 29.5 pg 26.0 - 34.0 pg [facility] MCHC (RBC) [Mass/Vol] 32.8 % 32.0 - 36.0 % [facility] MCV (RBC) [Entitic vol] 89.8 fL 80.0 - 98.0 fL [facility] Monocytes (Bld) [#/Vol] 1.0 10*3/uL High 0.0 - 0.8 10*3/uL [facility] Monocytes/100 WBC (Bld) 7.6 % 2.0 - 10.0 % [facility] Neutrophils (Bld) [#/Vol] 9.4 10*3/uL High 1.8 - 7.0 10*3/uL [facility] Neutrophils/100 WBC (Bld) 75.4 % 40.0 - 80.0 % [facility] Nucleated RBC/100 WBC (Bld) [Ratio] 0.1 % [facility] Platelet mean volume (Bld) [Entitic vol] 8.6 fL 7.4 - 12.4 fL [facility] Platelets (Bld) [#/Vol] 271 10*3/uL 140 - 440 10*3/uL [facility] RBC (Bld) [#/Vol] 4.37 10*6/uL 3.8 - 5.20 10*6/uL [facility] WBC (Bld) [#/Vol] 12.5 10*3/uL High 3.6 - 10.7 10*3/uL [facility] CBC panel Auto (Bld)on 12-05 Erythrocyte distribution width (RBC) [Ratio] 13.7 % 11.5 - 14.5 % [facility] Hematocrit (Bld) [Volume fraction] 37.9 % 35.0 - 47.0 % [facility] Hemoglobin (Bld) [Mass/Vol] 12.3 g/dL 11.7 - 16.0 g/dL [facility] Interpretation and review of laboratory results Abnormal [facility] MCH (RBC) [Entitic mass] 29.2 pg 26.0 - 34.0 pg [facility] MCHC (RBC) [Mass/Vol] 32.4 % 32.0 - 36.0 % [facility] MCV (RBC) [Entitic vol] 90.1 fL 80.0 - 98.0 fL [facility] [place] Platelet mean volume (Bld) [Entitic vol] 8.3 fL 7.4 - 12.4 fL [facility] [place] Platelets (Bld) [#/Vol] 244 10*3/uL 140 - 440 10*3/uL [facility] [place] RBC (Bld) [#/Vol] 4.21 10*6/uL 3.8 - 5.20 10*6/uL [facility] [place] WBC (Bld) [#/Vol] 11.6 10*3/uL High 3.6 - 10.7 10*3/uL [facility] CT Abdomen and Pelvis W cont rast Anna 12-05-2022 The etiology of the symptoms is not certain. No extravasation of contrast visualized. Report Dictated on Electronically Signed By: Toñito Chandra Electronically Signed Date/Time: 12/05/2022 3:55 PM EDT [employer] [facility] 1945 [id number] Exam Date/Time: 12/05/2022 15:39 Procedure: CT ABDOMEN PELVIS ANGIOGRAM W AND/OR WO IV CONTRAST Ordering Provider: MACK AMY Reason For Exam: GI bleed, lower [...] tissues. Abdominal wall:Ventral hernia fat only. [facility] Toñito Chandra MD - 12/05/2022 Patient Name: RADHA SANDOVAL : 1945 [facility]#: [id number] Exam Date/Time: 12/05/2022 15:39 Procedure: CT ABDOMEN PELVIS ANGIOGRAM W AND/OR WO IV CONTRAST Ordering Provider: MACK AMY Reason For Exam: GI bleed, lower [...] Electronically Signed Date/Time: 12/05/2022 3:55 PM EDT [facility] Study observation (narrative) [facility] alth CT Abdomen and Pelvis W cont rast IVOrdered By: Toñito Chandra on 12-05-2022 [facility] Work Phone: Hemoglobin (Bld) [Mass/Vol]o n 12-05-2022 Interpretation and review of laboratory results Normal [facility] [place] Hepatic function 2000 panelo n 12-05-2022 Albumin [Mass/Vol] 4.0 g/dL 3.5 - 5.0 g/dL [facility] ALP [Catalytic activity/Vol] 107 U/L 38 - 126 U/L [facility] ALT [Catalytic activity/Vol] 16 U/L 0 - 34 U/L [facility] AST [Catalytic activity/Vol] 25 U/L 15 - 46 U/L [facility] Bilirubin [Mass/Vol] 0.9 mg/dL 0.2 - 1 .3 mg/dL [facility] Bilirubin.conjugated [Mass/Vol] 0.0 mg/dL 0.0 - 0.3 mg/dL [facility] Protein [Mass/Vol] 7.2 g/dL 6.3 - 8.2 g/dL [facility] Laboratory - Chemistry and C hemistry - challengeon 12-05-2022 Glucose [Mass/Vol] 196 mg/dL High 70 - 100 mg/dL [facility] Glucose [Mass/Vol] 215 mg/dL High 70 - 100 mg/dL [facility] Lipase [Catalytic activity/Vol] 43 U/L 23 - 300 U/L [facility] Laboratory - Coagulationon 0 12-05-2022 aPTT Coag (PPP) [Time] 22.1 s 20.0 - 30.5 s [facility] INR Coag (PPP) [Relative time] 1.0 {INR} 0.9 - 1.1 [facility] Comment on above: Recommended Anticoag ulant [...] 11.0 s 9.0 - 1 2.0 s [facility] Laboratory - Hematology and Cell countson 12-05-2022 Hemoglobin (Bld) [Mass/Vol] 12.2 g/dL 11.7 - 16.0 g/dL [facility] No Panel Informationon 12-05 Interpretation and review of laboratory results Abnormal [facility] Performed by: Rogelio Tompkins, [address] [place] [address] CLIA ID: [id number] [facility] Interpretation and review of laboratory results Normal [facility] Interpretation and review of laboratory results Abnormal [facility] Performed by: Rogelio Montero [facility], [address] [place] [address] CLIA ID: [id number] [facility] Interpretation and review of laboratory results Normal [facility] XR CHEST (2 VW)on 09-09-2021 Patient Name: RADHA SANDOVAL Diagnostic Radiology ACCESSION EXAM DATE/TIME PROCEDURE ORDERING PROVIDER [id number] 09/09/2021 10:10 EDT CR Chest PA & LAT MD JOHN, SHIV AGRAWAL CPT code 02753 Reason For Exam (CR Chest PA & [...] infiltrate or effusion. Report Dictated on Workstation: [id number] --- Final --- Dictating Physician: MD HELTON YUN ROBERT Signed Date and Time: 09/09/2021 3:48 pm Signed by: MD HELTON YUN ROBERT Transcribed Date and Time: 09/09/2021 3:49 [facility] Donato Helton - 09/09/2021 Patient Name: RADHA SANDOVAL Diagnostic Radiology ACCESSION EXAM DATE/TIME PROCEDURE ORDERING PROVIDER [id number] 09/09/2021 10:10 EDT CR Chest PA & LAT MD JOHN, SHIV AGRAWAL CPT code 50105 Reason For Exam (CR Chest PA & [...] infiltrate or effusion. Report Dictated on Workstation: [id number] --- Final --- Dictating Physician: MD SUNITHA, DONATO FUENTES Signed Date and Time: 09/09/2021 3:48 pm Signed by: MD SUNITHA, DONATO FUENTES Transcribed Date and Time: 09/09/2021 3:49 [facility] Work Phone: Radiology Study observation (narrative) [facility] Work Phone: XR CHEST (2 VW)Ordered By: Haven Helton on 09-09-2021 [facility] Work Phone: VL PVR Arterial Doppler Lwr w/o Exerciseon 08-25-2021 VL PVR Arterial Doppler Lwr w/o Exercise [facility]: [id number]ound ACCESSION EXAM DATE/TIME PROCEDURE ORDERING PROVIDER [phone] 08/25/2021 10:09 EST VL PVR Arterial Doppler [id number] -SOMMER CHATTERJEE Lwr w/o Exercise CPT code 24643 Reason For Exam (VL PVR Arterial Doppler Lwr w/o Exercise) PVD with ulcer of left leg Report [facility] -- Multilevel Lower Extremity Arterial Evaluation Report Patient Radha Sandoval : 1945 Study 08/25/2021 Name: Eduardo (75yrs) Date: Age: 75 Account: [id number] Gender: F Loc: BP: Ordering Physician: Sommer Chatterjee Dining Room Attendant Cafeteria: Clayton Lr RVT Interpreting Physician: Wicho Morales MD -- Location: [facility] -- Indications: PVD with ulcer. -- [...] supine position. Images were obtained using a Ring vascular ultrasound machine. -- Arterial pressure indices: [...] WICHO MORALES Cardiovascular ACCESSION EXAM DATE/TIME PROCEDURE [id number] 08/25/2021 10:09 EST VL PVR Arterial Doppler Lwr w/o Exercise CPT code 57319 Reason For Exam (VL PVR Arterial Doppler Lwr w/o Exercise) PVD with ulcer of left leg Report [facility] [place] -- Multilevel Lower Extremity Arterial Evaluation Report Patient Radha Sandoval : 1945 Study 08/25/2021 Name: Eduardo (75yrs) Date: Age: 75 Account: [id number] Gender: F Loc: BP: Cardiovascular Report Ordering Physician: Sommer Chatterjee Dining Room Attendant Cafeteria: Clayton Lr RVT Interpreting Physician: Wicho Morales MD -- Location: [facility] -- Indications: PVD with ulcer. -- [...] PVR wave (more content not included)... Normal [facility] CULT/STAIN - AEROBIC AND KENNA Tyler [...] <= 2 S Amoxicillin/Clavulanic Acid(LAVINIA) R Normal [facility] Comment on above: Performed By: #### C CARINA #### [address] [id number] [id number] Culture, Anaerobic and Aerob icon 08-07-2021 Aerobic [...] test results indicate the organism is sensitive. [facility] Anaerobic Culture No growth of anaerob es at 5 days. [facility] Gram Stain Result No polymorphonuclear cells/lpf. Rare gram positive cocci in clusters. [facility] Interpretation and review of laboratory results Abnormal [facility] Test Performed by [id number] [place] [address] [facility] CR Chest PA/LATon 04-22-2021 CR Chest PA/LAT Patient Name: RADHA SANDOVAL Diagnostic Radiology ACCESSION EXAM DATE/TIME PROCEDURE ORDERING PROVIDER [id number] 04/22/2021 11:32 EDT CR Chest PA and LAT MD JOHN, SHIV AGRAWAL CPT code 64305 Reason For Exam (CR Chest PA and [...] Transcribed Date and Time: 04/22/2021 11:47 Normal [facility] MG Breast Tomosynthesis Scr Blon 04-22-2021 MG Breast Tomosynthesis Scr Bl Patient Name: RADHA SANDOVAL Mammography ACCESSION EXAM DATE/TIME PROCEDURE ORDERING PROVIDER [id number] 04/22/2021 11:11 EDT MG Breast Tomosynthesis MD JOHN, SHIV BI John AGRAWAL CPT code 21678 [id number] Reason For Exam (MG Breast Tomosynthesis BI [...] images: BB's = Nipples; skin lesions Open sleetmute = Palpable Line = Scar 2D digital [...] am Signed by: MD HELTON YUN ROBERT [facility] OT Bone Density DEXA Axial S haylie 04-22-2021 OT Bone Density DEXA Axial Skeleton Patient [facility]: [id number] Density ACCESSION EXAM DATE/TIME PROCEDURE ORDERING PROVIDER [id number] 04/22/2021 10:45 EDT OT Bone Density DEXDiony LOPEZ MD, SHIV Axial Skeleton DECATUR CPT code 13642 Reason For Exam (OT Bone Density DEXA Axial Skeleton) menopause Report DXA BONE DENSITOMETRY: CLINICAL INDICATION: Asymptomatic post-menopausal status COMPARISON: None TECHNIQUE: Quantitative bone mineral densitometry of the hip and lumbar spine was performed with a dual energy x-ray observed absorptiometry device - HoloBlueVine W. Regions of interest were obtained through [...] recommendations for prevention of bone loss include: 3891-7285 mg calcium intake per day for adults [...] and Follow-up. Christa of [employer] Evidence-Based Summaries. [facility] [employer]. 2017 Bone Density Report Report Dictated on Final Dictating Physician: MD DELVALLE LAUREN B Signed Date and Time: 04/23/2021 8:00 am Signed by: MD DELVALLE LAUREN B Transcribed Date and Time: 04/23/2021 8:01 Normal [facility] ECHO Complete 2D W Doppler W ColorOrdered By: Shiv Lopez on 10-07-2020 TRANSTHORACIC ECHOCARDIOGRAM PATIENT: Radha Sandoval STUDY DATE: 10/07/2020 : 1945 AGE: 75 HT/WT: 170.2 cm (67 117.9 kg in) (259.4 lb) GENDER: F BP: 144 / 89 LOCATION: [facility] PATIENT [facility] STATUS: *ORDERING PHYSICIAN: * Shiv Lopez *READING PHYSICIAN: * Stuart Cherrie, *LEAD ELECTRICAL ENGINEER: * Lizzette Dejesus MD [facility], AE -- INDICATIONS: Localized edema (R60.0). -- [...] LV ID, ES (more content not included)... [employer] Work Phone: [facility]one, [facility] Incoming Cardiology Results From [facility] - 10/07/2020 3:44 PM EDT TRANSTHORACIC ECHOCARDIOGRAM PATIENT: Radha Sandoval STUDY DATE: 10/07/2020 : 1945 AGE: 75 HT/WT: 170.2 cm (67 117.9 kg in) (259.4 lb) GENDER: F BP: 144 / 89 LOCATION: [facility] PATIENT [facility]patient [facility] STATUS: *ORDERING PHYSICIAN: * Shiv Lopez *READING PHYSICIAN: * Stuart Grier, *LEAD ELECTRICAL ENGINEER: * Lizzette Dejesus MD, RDCS, AE -- INDICATIONS: Localized edema (R60.0). [...] LV end-diastolic volum (more content not included)... [facility] Work Phone: Echo Complete w/wo Contrasto n 10-07-2020 Echo Complete w/wo Contrast Patient Name: RADHA SANDOVAL Ultrasound ACCESSION EXAM DATE/TIME PROCEDURE ORDERING PROVIDER [id number] 10/07/2020 14:50 EDT Echo Complete w/wo MD JOHN, SHIV AGRAWAL Reason For Exam (Echo Complete w/wo Contrast) edema Report TRANSTHORACIC ECHOCARDIOGRAM PATIENT: Radha Sandoval STUDY DATE: 10/07/2020 : 1945 AGE: 75 HT/WT: 170.2 cm (67 117.9 kg in) (259.4 lb) GENDER: F BP: 144 / 89 LOCATION: [facility] PATIENT [facility]patient [facility] STATUS: *ORDERING PHYSICIAN: * Shiv Lopez *READING PHYSICIAN: * Stuart Grier, *LEAD ELECTRICAL ENGINEER: * Lizzette Dejesus MD, RDCS, AE -- INDICATIONS: Localized edema (R60.0). [...] ED 0.31 (more content not included)... Normal [facility] Basic Metabolic Panelon 01-17 Anion gap [Moles/Vol] 10 mmol/L [place] Calcium [Mass/Vol] 8.7 mg/dL 8.4 - 10. 4 mg/dL [place] Chloride [Moles/Vol] 101 mmol/L 98 - 10 7 mmol/L [place] CO2 [Moles/Vol] 27 mmol/L 22 - 30 mmol/L [place] Creatinine [Mass/Vol] 1.13 mg/dL 0.52 - 1.25 mg/dL [place] EGFR IF NonAfrican Malagasy 46.9 mL/min >60 [place] Comment on above: Source- MDRD equatio n with creatinine calibration to IDMS(NKDEP) eGFR not recommended for drug dose adjustment GFR/1.73 sq M predicted among blacks MDRD (S/P/Bld) [Vol rate/Area] 56.8 mL/min/{1.73_m2} >60 [place] Glucose [Mass/Vol] 139 mg/dL High 70 - 100 mg/dL [place] Interpretation and review of laboratory results Abnormal [place] Potassium [Moles/Vol] 4.3 mmol/L 3.5 - 5.1 mmol/L [place] Sodium [Moles/Vol] 137 mmol/L 135 - 145 mmol/L [place] Urea nitrogen [Mass/Vol] 18 mg/dL 7 - 20 mg/dL [place] CBCon 02-01-2019 Erythrocyte distribution width (RBC) [Ratio] 13.4 % 11.5 - 14.5 % [place] Hematocrit (Bld) [Volume fraction] 35.1 % 35 - 47 % [place] Hemoglobin (Bld) [Mass/Vol] 11.8 g/dL 11.7 - 16 g/dL [place] MCH (RBC) [Entitic mass] 30.2 pg 26 - 34 pg [place] MCHC (RBC) [Mass/Vol] 33.8 % 32 - 36 % [place] MCV (RBC) [Entitic vol] 89.4 fL 79 - 98 fL [place], [place] Platelet mean volume (Bld) [Entitic vol] 7.6 fL 7.4 - 10.4 fL [place] Platelets (Bld) [#/Vol] 419 10*3/uL 140 - 440 10*3/uL [place] RBC (Bld) [#/Vol] 3.92 10*6/uL 3.8 - 5.2 10*6/uL [place] WBC (Bld) [#/Vol] 9.4 10*3/uL 3.6 - 10.7 10*3/uL [place] CT CERVICAL SPINE WO LAURA Harmon 02-01-2019 [facility], [facility] Incoming Radiology Results From [facility] - 02/01/2019 7:24 PM EDT Patient Name: RADHA SANDOVAL ---CT--- Exam Date/Time 02/01/2019 18:57:[address] Spine Cervical w/o Contrast Ordering Physician MD CR, DUNCAN Accession Number [id number] CPT4 Codes 31458 () Reason For Exam NECK PAIN FOLLOWING [...] NELSON Transcribed Date and Time: 02/01/2019 7:12 [place] Patient Name: RADHA SANDOVAL ---CT--- Exam Date/Time 02/01/2019 18:57:[address] Spine Cervical w/o Contrast Ordering Physician MD HANKINS ALEKSANDAR Accession Number [id number] CPT4 Codes 09352 () Reason For Exam NECK PAIN FOLLOWING [...] NELSON Transcribed Date and Time: 02/01/2019 7:12 [place] CT HEAD WO CONTRASTon 2018 [facility] Incoming Radiology Results From [facility] - 02/01/2019 7:40 PM EDT Patient Name: RADHA SANDOVAL ---CT--- Exam Date/Time 02/01/2019 18:57:[address] Head or Brain w/o Contrast Ordering Physician MD CR, [facility] Accession Number [id number] CPT4 Codes 37746 () Reason For Exam HEAD INJURY MILD [...] R Transcribed Date and Time: 02/01/2019 7:35 [place] Patient Name: RADHA SANDOVAL ---CT--- Exam Date/Time 02/01/2019 18:57:[address] Head or Brain w/o Contrast Ordering Physician MD HANKINS ALEKSANDAR Accession Number [id number] CPT4 Codes 92686 () Reason For Exam HEAD INJURY MILD [...] R Transcribed Date and Time: 02/01/2019 7:35 [place] Ethanolon 02-01-2019 Ethanol Lvl <0.010 0 - 0.01 g/dL [place] Comment on above: NOTE: This result is for medical treatment only. Analysis performed using non-forensic procedures. Otheron 02-01-2019 Test Performed by [facility], [address] [place] [id number] [place] [address] Protime/INR & PTTon 02-02-20 19 aPTT Coag (Bld) [Time] 23.9 s 20 - 30.5 s M [place], [place] Comment on above: NOTE: The therapeuti c time for Heparin anticoagulation, based on Xa activity inhibition, is an APTT of 46-80 seconds. INR Coag (PPP) [Relative time] 0.9 {INR} [place] Comment on above: Recommended Anticoag ulant [...] [Time] 9.9 s 9 - 12 s [place], [place] Comment on above: . TYPE AND SCREENon 02-01-2019 Sodium [Moles/Vol] Positive [place] Comment on above: Test Performed by [facility], [facility] [place] [address] Sodium [Moles/Vol] O [place] Sodium [Moles/Vol] Negative [place] Comment on above: Test Performed by [facility], [facility] [place] [address] XR CHEST PORTABLEon 02-02-20 19 [facility], [facility] Incoming Radiology Results From [facility] - 02/01/2019 7:15 PM EDT Patient Name: RADHA SANDOVAL ---Diagnostic Radiology--- Exam Date/Time 02/01/2019 19:11:56 EDT Exam CR Chest Portable Ordering Physician MD CR, DUNCAN Accession Number [id number] CPT4 Codes 84691 () Reason For Exam TRAUMA, FALL Report [...] R Transcribed Date and Time: 02/01/2019 7:13 [place] Patient Name: RADHA SANDOVAL ---Diagnostic Radiology--- Exam Date/Time 02/01/2019 19:11:56 EDT Exam CR Chest Portable Ordering Physician MD HANKINS ALEKSANDAR Accession Number [id number] CPT4 Codes 62397 () Reason For Exam TRAUMA, FALL Report [...] R Transcribed Date and Time: 02/01/2019 7:13 [place] XR PELVIS (1-2 VW)on Patient Name: RADHA SANDOVAL ---Diagnostic Radiology--- Exam Date/Time 02/01/2019 19:11:56 EDT Exam CR Pelvis 1 or 2 Views Ordering Physician MD HANKINS ALEKSANDAR Accession Number [id number] CPT4 Codes 35116 () Reason For Exam TRAUMA, FALL Report [...] R Transcribed Date and Time: 02/01/2019 7:12 [place] [facility] Incoming Radiology Results From [facility] - 02/01/2019 7:14 PM EDT Patient Name: RADHA SANDOVAL ---Diagnostic Radiology--- Exam Date/Time 02/01/2019 19:11:56 EDT Exam CR Pelvis 1 or 2 Views Ordering Physician MD CR, DUNCAN Accession Number [id number] CPT4 Codes 44220 () Reason For Exam TRAUMA, FALL Report [...] R Transcribed Date and Time: 02/01/2019 7:12 [place] Vital Signs Date Time Vital Sign Value Performing Clinician Ryan goldberg 03-18-2023 11:02-0400 Body temperature 98.7 [degF] [facility] 03-18-2023 11:02-0400 Diastolic blood pressure 50 mm[Hg] [facility] 03-18-2023 11:02-0400 Heart rate 74 /min [facility] 03-18-2023 11:02-0400 Respiratory rate 18 /min [facility] 03-18-2023 11:02-0400 SaO2% (BldA) [Mass fraction] 96 % [facility] 03-18-2023 11:02-0400 Systolic blood pressure 142 mm[Hg] [facility] 03-15-2023 14:20-0400 Body height 170.18 cm [facility] 03-15-2023 14:20-0400 Body weight 113.21 kg [facility] 03-14-2023 09:34-0400 Body mass index (BMI) [Ratio] 39.1 kg/m2 [facility] 03-03-2023 07:40-0400 Body temperature 98.1 [degF] Tasneem Whaley MD Work Phone: [facility] 03-03-2023 07:40-0400 Diastolic blood pressure 81 mm[Hg] Tasneem Whaley MD Work Phone: [facility] 03-03-2023 07:40-0400 Heart rate 93 /min Tasneem Whaley MD Work Phone: [facility] 03-03-2023 07:40-0400 Respiratory rate 16 /min Tasneem Whaley MD Work Phone: [facility] 03-03-2023 07:40-0400 SaO2% (BldA) [Mass fraction] 94 % Tasneem Whaley MD Work Phone: [facility] 03-03-2023 07:40-0400 Systolic blood pressure 154 mm[Hg] Tasneem Whaley MD Work Phone: [facility] 02-27-2023 14:44-0400 Body mass index (BMI) [Ratio] 36.65 kg/m2 Katia Bridenthal PUBLIC ADDRESS TECHNICIAN - [employer]QUOR [employer]NER Work Phone: [facility] 02-27-2023 14:44-0400 Body temperature 99.1 [degF] Katia Bridenthal PUBLIC ADDRESS TECHNICIAN - LIQUOR RUNNER Work Phone: [facility] 02-27-2023 14:44-0400 Body weight 106.14 kg Katia Bridenthal PUBLIC ADDRESS TECHNICIAN - [employer]QUOR [employer]NER Work Phone: [facility] 02-27-2023 14:44-0400 Diastolic blood pressure 72 mm[Hg] Katia Bridenthal PUBLIC ADDRESS TECHNICIAN - LIQUOR RUNNER Work Phone: [facility] 02-27-2023 14:44-0400 Heart rate 93 /min Katia Bridenthal PUBLIC ADDRESS TECHNICIAN - [employer]QUOR RUNNER Work Phone: [facility] 02-27-2023 14:44-0400 Respiratory rate 20 /min Katia Gregenthal PUBLIC ADDRESS TECHNICIAN - LIQUOR RUNNER Work Phone: [facility] 02-27-2023 14:44-0400 SaO2% (BldA) [Mass fraction] 92 % Katia Gregenthal PUBLIC ADDRESS TECHNICIAN - LIQUOR RUNNER Work Phone: [facility] 02-27-2023 14:44-0400 Systolic blood pressure 136 mm[Hg] Katia Gregenthal PUBLIC ADDRESS TECHNICIAN - [employer]QUOR RUNNER Work Phone: [facility] 02-15-2023 13:07-0400 Body height 170.2 cm Lenard Magallanes DO Work Phone: [facility] 02-15-2023 13:07-0400 Body mass index (BMI) [Ratio] 35.71 kg/m2 Lenard Magallanes DO Work Phone: [facility] 02-15-2023 13:07-0400 Body temperature 98.6 [degF] Lenard Magallanes DO Work Phone: [facility] 02-15-2023 13:07-0400 Body weight 103.42 kg Lenard Magallanes DO Work Phone: [facility] 02-15-2023 13:07-0400 Diastolic blood pressure 76 mm[Hg] Lenard Magallanes DO Work Phone: [facility] 02-15-2023 13:07-0400 Heart rate 75 /min Lenard Tomase DO Work Phone: [facility] 02-15-2023 13:07-0400 Respiratory rate 20 /min Lenard Magallanes DO Work Phone: [facility] 02-15-2023 13:07-0400 Systolic blood pressure 141 mm[Hg] Lenardbarbara Tomase DO Work Phone: [facility] 02-07-2023 11:18-0400 Diastolic blood pressure 72 mm[Hg] Katia Gregenthal PUBLIC ADDRESS TECHNICIAN - LIQUOR RUNNER Work Phone: [facility] 02-07-2023 11:18-0400 Systolic blood pressure 146 mm[Hg] Katia Bridenthal PUBLIC ADDRESS TECHNICIAN - LIQU[employer] RUNNER Work Phone: [facility] 02-07-2023 10:39-0400 Body mass index (BMI) [Ratio] 40.34 kg/m2 Katia Bridenthal PUBLIC ADDRESS TECHNICIAN - LIQUOR RUNNER Work Phone: [facility] 02-07-2023 10:39-0400 Body temperature 97.3 [degF] Katia Bridenthal PUBLIC ADDRESS TECHNICIAN - LIQUOR RUNNER Work Phone: [facility] 02-07-2023 10:39-0400 Body weight 109.95 kg Katia Bridenthal PUBLIC ADDRESS TECHNICIAN - LIQUOR [employer]NER Work Phone: [facility] 02-07-2023 10:39-0400 Heart rate 88 /min Katia Bridenthal PUBLIC ADDRESS TECHNICIAN - LIQUOR RUNNER Work Phone: [facility] 02-07-2023 10:39-0400 Respiratory rate 20 /min Katia Bridenthal PUBLIC ADDRESS TECHNICIAN - LIQUOR RUNNER Work Phone: [facility] 02-07-2023 10:39-0400 SaO2% (BldA) [Mass fraction] 96 % Katia Bridenthal PUBLIC ADDRESS TECHNICIAN - LIQUOR RUNNER Work Phone: [facility] 12-07-2022 10:03-0400 Diastolic blood pressure 80 mm[Hg] Anusha Velarde MD Work Phone: [facility] 12-07-2022 10:03-0400 Heart rate 72 /min Anusha Velarde MD Work Phone: [facility] 12-07-2022 10:03-0400 Respiratory rate 18 /min Anusha Velarde MD Work Phone: [facility] 12-07-2022 10:03-0400 SaO2% (BldA) [Mass fraction] 96 % Anusha Velarde MD Work Phone: [facility] 12-07-2022 10:03-0400 Systolic blood pressure 162 mm[Hg] Anusha Velarde MD Work Phone: [facility] 12-07-2022 09:50-0400 Body temperature 97.2 [degF] Anusha Velarde MD Work Phone: [facility] 12-07-2022 08:49-0400 Body height 165.1 cm Anusha Velarde MD Work Phone: [facility] 12-07-2022 08:49-0400 Body mass index (BMI) [Ratio] 41.6 kg/m2 Anusha Velarde MD Work Phone: [facility] 12-07-2022 08:49-0400 Body weight 113.4 kg Anusha Velarde MD Work Phone: [facility] 06-30-2022 08:47-0500 Diastolic blood pressure 62 mm[Hg] Shiv Lopez MD Work Phone: [facility] 06-30-2022 08:47-0500 Heart rate 80 /min Shiv Lopez MD Work Phone: [facility] 06-30-2022 08:47-0500 Systolic blood pressure 125 mm[Hg] Shiv Lopez MD Work Phone: [facility] 06-30-2022 08:16-0500 Body height 165.7 cm Shiv Lopez MD Work Phone: [facility] 06-30-2022 08:16-0500 Body mass index (BMI) [Ratio] 39.96 kg/m2 Shiv Lopez MD Work Phone: [facility] 06-30-2022 08:16-0500 Body weight 109.77 kg Shiv Lopez MD Work Phone: [facility] Encounters Encounter Date Encounter Type Care Provider Facility Start: 04-10-2025 ambulatory Melissa THOMPSON Facili ty:[facility] Start: 04-08-2025 ambulatory Dong THOMPSON Facil ity:[facility] Start: 04-03-2025 ambulatory Dong THOMPSON Facil ity:[facility] Start: 03-26-2025 End: 03-26-2025 ambulatory Melissa Gudla OLS Facility:[facility] Start: 03-20-[address] [facility] Work Phone: Start: 03-20-2025 End: 03-20-2025 ambulatory Melissa Gudla OLS Facility:[facility] Start: 03-14-[address] Melissa Reed MD -[facility] Work Phone: Start: 03-14-2025 End: 03-14-2025 ambulatory Melissa Gudla OLS Facility:[facility] Start: 03-10-[address] Melissa Reed MD -[facility] Work Phone: Start: 03-10-2025 End: 03-10-2025 ambulatory Melissa Gudla OLS Facility:[facility] Start: 03-06-[address] Melissa Reed MD -[facility] Work Phone: Start: 03-06-2025 End: 03-06-2025 ambulatory Melissa Gudla OLS Facility:[facility] Start: 02-20-[address] Melissa Reed MD -[facility] Work Phone: Start: 02-20-2025 End: 02-20-2025 ambulatory Melissa Gudla OLS Facility:[facility] Start: 02-06-2025 ambulatory Melissa Gudla OLS Facili ty:[facility] Start: 02-06-[address] Melissa Reed MD -[facility] Work Phone: Start: 01-23-2025 ambulatory Melissa Gudla OLS Facili ty:[facility] Start: 01-23-[address] Melissa Reed MD -[facility] Work Phone: Start: 01-09-[address] Melissa Reed MD -[facility] Work Phone: Start: 01-09-2025 End: [facility] Start: 12-26-2024 ambulatory Melissa Gudla Facility:[facility] Start: 12-26-[address] Melissa Reed MD -[facility] Work Phone: Start: 12-24-2024 ambulatory Melissa Gudla Facility:[facility] Start: 12-24-[address] Melissa Reed MD -[facility] Work Phone: Start: 12-17-2024 Non-patient / Non-visit Dr. Princess stafford MD -[facility] Work Phone: Start: 12-12-2024 End: 12-12-[address] Melissa Reed MD -[facility] Start: 12-12-2024 End: 12-12-[address] Melissa Reed MD -[facility] Work Phone: Start: 12-12-2024 End: 12-12-2024 ambulatory Melissabridgette Reed Facility:[facility] Start: 11-28-2024 End: 11-28-[address] Melissa Reed MD [facility] Work Phone: Start: 11-28-2024 End: 11-28-[address] Melissa Reed MD -[facility] Work Phone: Start: 11-28-[address] Melissa Reed MD -[facility] Work Phone: Start: 11-28-2024 End: 11-28-2024 ambulatory [facility] Facility:[facility] Start: 11-14-[address] Melissa Reed MD -[facility] Work Phone: Start: 11-14-2024 End: 11-14-2024 [facility] Start: 11-08-2024 End: 11-08-[address] Melissa Reed MD [facility] Work Phone: Start: 11-08-2024 End: 11-08-[address] Melissa Reed MD -[facility] Work Phone: Start: 11-08-2024 End: 11-08-2024 ambulatory [facility] Facility:[facility] Start: 10-17-2024 End: 10-17-[address] Melissa Reed MD -[facility] Work Phone: Start: 10-17-2024 End: 10-17-2024 ambulatory [facility] Facility:[facility] Start: 10-03-2024 End: 10-03-[address] Shiv Lopez MD Work Phone: [facility] Work Phone: Start: 10-03-2024 End: 10-03-[address] Melissa Reed MD -[facility] Work Phone: Start: 10-03-2024 End: 10-03-2024 ambulatory [facility] Facility:[facility] Start: 09-23-2024 ambulatory [facility] Facility:[facility] Start: 09-23-[address] Melissa Reed MD -[facility] Work Phone: Start: 09-19-2024 End: 09-19-[address] Shiv Lopez MD Work Phone: [facility] Work Phone: Start: 09-19-2024 End: 09-19-[address] Melissa Reed MD -[facility] Work Phone: Start: 09-19-[address] Melissa Reed MD -[facility] Work Phone: Start: 09-19-2024 End: 09-19-2024 ambulatory [facility] Facility:[facility] Start: 09-05-2024 End: 09-05-[address] Shiv Lopez MD Work Phone: [facility] Work Phone: Start: 09-05-2024 End: 09-05-[address] Melissa Reed MD -[facility] Work Phone: Start: 09-05-[address] Melissa Reed MD -[facility] Work Phone: Start: 09-05-2024 End: 09-05-2024 ambulatory [facility] Facility:[facility] Start: 08-22-2024 End: 08-22-[address] Shiv Lopez MD Work Phone: [facility] Work Phone: Start: 08-22-2024 End: 08-22-[address] Melissa Reed MD -[facility] Work Phone: Start: 08-22-2024 End: 08-22-2024 ambulatory Melissa Gudla Facility:[facility] Start: 08-08-2024 ambulatory Melissabridgette Reed OLS Facili ty:[facility] Start: 08-08-[address] Melissa Reed MD -[facility] Start: 08-06-2024 ambulatory Melissabernadine Reed OLS Facili ty:[facility] Start: 08-06-[address] Melissa Reed MD -[facility] Work Phone: Start: 07-31-2024 End: 07-31-[address] Gypsy Argueta MD -Radiology, [facility] Work Phone: Start: 07-31-2024 End: 07-31-2024 ambulatory Gypsy Argueta Facility:[facility] Start: 07-25-2024 ambulatory Shiv John Facility :[facility] Start: 07-25-[address] Melissa Reed MD -[facility] Work Phone: Start: 07-11-2024 ambulatory Shiv John Facility :[facility] Start: 07-11-[address] Melissa Reed MD -[facility] Work Phone: Start: 06-27-2024 End: 06-27-[address] Melissa Reed MD -[facility] Work Phone: Start: 06-27-2024 End: 06-27-2024 ambulatory Shiv John Facility:[facility] Start: 06-13-2024 ambulatory Shiv John Facility :[facility] Start: 06-13-[address] Melissa Reed MD -[facility] Work Phone: Start: 05-29-2024 End: 05-29-[address] Melissa Reed MD -[facility] Work Phone: Start: 05-29-2024 End: 05-29-2024 ambulatory Shiv John Facility:[facility] Start: 05-15-2024 End: 05-15-2024 ambulatory Shiv John Facility:[facility] Start: 05-01-2024 End: 05-01-2024 ambulatory [facility]iv [facility] [facility] Start: 12-29-2023 End: 12-29-2023 ambulatory Felicia Garcia Formerly [facility] Start: 09-29-2023 End: 09-29-2023 ambulatory [facility] Work Phone: Start: 09-29-2023 End: 09-29-2023 Departed Referred [facility] Work Phone: Start: 09-14-2023 End: 09-14-2023 ambulatory [facility] Work Phone: Start: 09-14-2023 End: 09-14-2023 Departed [facility]erred [facility] Work Phone: Start: 08-31-2023 End: 08-31-2023 ambulatory [facility] Work Phone: Start: 08-31-2023 End: 08-31-2023 Departed [facility] Work Phone: Start: 08-17-2023 End: 08-17-2023 ambulatory [facility] Work Phone: Start: 08-17-2023 End: 08-17-2023 Departed [facility]erred [facility] Work Phone: Start: 08-14-2023 End: 08-14-2023 Departed [facility] Work Phone: Start: 07-31-2023 End: 07-31-2023 Departed [facility] Work Phone: Start: 07-17-2023 End: 07-17-2023 Departed [facility] Work Phone: Start: 07-03-2023 End: 07-03-2023 Departed [facility] Work Phone: Start: 07-03-2023 Registered Referred [facility] Work Phone: Start: 06-23-2023 End: 06-23-2023 ambulatory [facility] Work Phone: Start: 06-23-2023 End: 06-23-2023 Departed Referred [facility] Start: 06-20-2023 End: 06-20-2023 ambulatory [facility] Work Phone: Start: 06-20-2023 End: 06-20-2023 Departed [facility]erred [facility] Work Phone: Start: 06-20-2023 Registered Referred [facility] Work Phone: Start: 05-10-2023 End: 05-10-2023 ambulatory [facility] Work Phone: Start: 05-10-2023 End: 05-10-2023 Departed Referred [facility] Start: 05-10-2023 Registered Referred [facility] Start: 05-01-2023 End: 05-01-2023 ambulatory [facility] Work Phone: Start: 05-01-2023 End: 05-01-2023 Departed Referred [facility] Start: 04-04-2023 End: 04-04-2023 ambulatory [facility] Work Phone: Start: 04-04-2023 End: 04-04-2023 Departed Referred [facility] Start: 03-20-2023 End: 03-20-2023 Departed Referred [facility] Start: 03-03-2023 End: 03-18-2023 Evaluation and management of inpatient [facility] Start: 02-28-2023 End: 03-03-2023 ambulatory Imelda Mann RN [facility] Start: 02-28-2023 Patient encounter procedure Imelda Mann RN [facility] Start: 02-28-2023 End: 03-03-2023 Emergency department patient visit Tasneem Whaley MD Work Phone: [facility] Comment on above: LING (acute kidney in jury) ([facility]/HCC) (HCC) (Primary Dx); Pyelonephritis; Polypharmacy; Insomnia, unspecified type; Pressure ulcer of right buttock, stage 3 (HCC) Start: 02-27-2023 End: 02-27-2023 ambulatory [facility] Start: 02-27-2023 End: 02-27-2023 Office outpatient visit 25 minutes Katia Granados PUBLIC ADDRESS TECHNICIAN - LIQUOR RUNNER Work Phone: [facility] Comment on above: Diabetes mellitus du e to underlying condition with stage 3 chronic kidney disease, with long-term current use of insulin, unspecified whether stage 3a or 3b CKD ([facility]) (Primary Dx); Urinary tract infection symptoms; Primary hypertension; Hypokalemia; Acquired hypothyroidism; History of GI bleed; Acute cystitis with hematuria; Wound of right buttock, subsequent encounter; Chronic renal impairment, stage 3b ([facility]); Diarrhea, unspecified type Start: 02-23-2023 ambulatory Nan Bush RN [facility] Cl inical Communication Start: 02-23-2023 Patient encounter procedure Nan Bush RN [facility] Clinical Communication Start: 02-15-2023 End: 02-15-2023 Subsequent hospital visit by physician Lenard Magallanes DO Work Phone: [facility] Comment on above: Arrived Start: 02-15-2023 End: 02-15-2023 ambulatory LENARD MAGALLANES [facility] Start: 02-07-2023 End: 02-07-2023 Office outpatient visit 15 minutes Katia Granados PUBLIC ADDRESS TECHNICIAN - LIQUOR RUNNER Work Phone: [facility] Family Medicine Comment on above: Wound of right butto ck, subsequent encounter (Primary Dx); Chronic left shoulder pain Start: 02-07-2023 End: 02-07-2023 ambulatory [facility] Start: 01-25-2023 ambulatory [facility] Start: 01-25-2023 Patient encounter procedure [facility] Start: 01-12-2023 Refill Katia ley PUBLIC ADDRESS TECHNICIAN - [employer]QU[employer]NER Work Phone: [facility] Comment on above: Vitamin D deficiency ; Acquired hypothyroidism; Chronic left shoulder pain; Restless legs syndrome (RLS) Start: 12-08-2022 Refill Katia ley PUBLIC ADDRESS TECHNICIAN - LIQUOR RUNNER Work Phone: [facility] Comment on above: Hyperlipidemia with target LDL less than 70; Acquired hypothyroidism; Chronic left shoulder pain Start: 12-05-2022 ambulatory Sruthi Burns RN [facility] Clinical Communication Start: 12-05-2022 Patient encounter procedure Sruthi Burns RN [facility] Clinical Communication Start: 12-05-2022 End: 12-07-2022 Emergency department patient visit Anusha Velarde MD Work Phone: [facility] Comment on above: Acute lower GI bleed ing (Primary Dx); Rectal bleeding Start: 10-05-2022 Telephone encounter Shiv James MD Work Phone: [facility] Comment on above: Results Start: 08-12-2022 Refill Shiv Lopez MD Work Phone: [facility] Clinical Communication Start: 07-26-2022 Refill Shiv Lopez MD Work Phone: [facility] Start: 07-18-2022 Refill Katia ley PUBLIC ADDRESS TECHNICIAN - [employer]QU[employer] RUNNER Work Phone: [facility] Comment on above: Vitamin D deficiency Start: 07-11-2022 Refill Shiv Lopez MD Work Phone: [facility] Start: 07-08-2022 ambulatory Christine Haas RN [facility] Clin ical Communication Start: 07-08-2022 Patient encounter procedure Christine Haas RN [facility] Clinical Communication Comment on above: Trauma (Primary Dx) Start: 07-07-2022 Telephone encounter Devendra ramos MD Work Phone: [facility] [place] Comment on above: Reschedule (07/08/22 ) Start: 06-30-2022 End: 06-30-2022 Office outpatient visit 25 minutes Shiv Lopez MD Work Phone: [facility] Comment on above: Uncontrolled type [...] by physician Shiv Lopez MD Work Phone: [facility] Radiology Comment on above: Dyspnea on exertion Start: 08-25-2021 End: 08-25-2021 Subsequent hospital visit by physician Sommer Chatterjee DPM Work Phone: [facility] Start: 11-05-2020 End: 11-05-2020 Subsequent hospital visit by physician Shiv Lopez MD Work Phone: [facility] Start: 10-07-2020 End: 10-07-2020 Subsequent hospital visit by physician Shiv Lopez MD Work Phone: [facility] Comment on above: Localized edema [...] department patient visit Dick Ace Work Phone: [facility] Emergency Dept Comment on above: Injury of head, init ial encounter (Primary Dx); Laceration of scalp, initial encounter; Strain of neck muscle, initial encounter Start: 01-18-2019 End: 01-18-2019 Subsequent hospital visit by physician Darya Berrios Work Phone: [facility] Laboratory Start: 12-21-2016 [facility] Date Procedure Procedure Detail Performing Clinician Start: 12-24-[address] Wilmer Reed MD Start: 12-24-2024 Urnls dip stick/tabl et reagent auto microscopy Dr. Melissa Reed MD Start: 09-23-[address] Stevan Lopez [...] et rgnt non-auto w/o micrscp Katia Bridenthal PUBLIC ADDRESS TECHNICIAN - [employer]NER Work Phone: Start: 02-27-2023 Glucose [Mass/volume ] in Serum or Plasma Katia Gregenthal PUBLIC ADDRESS TECHNICIAN - [employer]QU[employer]NER Work Phone: Start: 02-27-2023 Thyrotropin [Units/v olume] [...] 12-06-2022 Basic metabolic panel calcium total Bertram Nagineni MD Work Phone: Start: 12-06-2022 Blood count complete automated Bertram Durbin MD Work Phone: Start: 12-05-2022 Glucose quantitative blood xcpt reagent strip Anusha Velarde MD Work Phone: Start: 12-05-2022 Blood count hemoglobin Bertram Durbin MD Work Phone: Start: 12-05-2022 Blood count complete automated Ashley OCONNOR Work Phone: Start: 12-05-2022 Blood typing serolog ic rh (d) Ashley Mack PA Work Phone: Start: 12-05-2022 Ct angio abd&plvis c ntrst mtrl w/wo cntrst img Ashley OCONNOR Work Phone: Start: 12-05-2022 Glucose quantitative blood xcpt reagent strip Anusha Velarde MD Work Phone: Start: 12-05-2022 End: 12-05-2022 Basic metabolic panel calcium total Ashley Mack PA Work Phone: Start: 06-30-2022 Lipid 1996 [...] Radiologic exam ches t single view Duncan Geube Work Phone: Start: 02-01-2019 Radiologic examinati on pelvis 1/2 views [employer] Work Phone: Start: 02-01-2019 Ct cervical spine w/ o contrast material [employer] Work Phone: Start: 02-01-2019 Ct head/brain w/o co ntrast material [employer] Work Phone: Start: 02-01-2019 Blood typing serologic abo Dick [employer] Work Phone: Start: 02-01-2019 Assay of ethanol Dick [employer] Work Phone: Start: 02-01-2019 Basic metabolic pane l calcium total Dick [employer] Work Phone: Start: 02-01-2019 Blood count complete automated Dick Ace Work Phone: Start: 02-01-2019 PROTIME/INR & PTT Yobany [employer] Work Phone: Plan of Treatment Date Care Activity Detail Author Start: 09-23-2024 Urine culture Urine Culture [facility] Start: 09-23-[address] [facility] Start: 09-05-2024 Urine culture Urine Culture [facility] Start: 09-05-[address] [facility] Start: 02-28-2024 Thyroid stimulating hormone measurement TSH Level [facility] Start: 02-18-2024 Influenza vaccination Influenza Vacc ine (#1) [facility] Start: 02-08-2024 COVID-19 Vaccine (3 - Booster for Brian series) COVID-19 Vaccine (3 - Booster for Brian series) [facility] Comment on above: Postponed from 06/21 (Patient Refused) Start: 02-08-2024 DTaP/Tdap/Td Vaccine s (1 - Tdap) DTaP/Tdap/Td Vaccines (1 - Tdap) [facility] Comment on above: Postponed from 08/27 (Patient Refused) Start: 02-08-2024 Hepatitis C screening Hepatitis C [facility] Comment on above: Postponed from 08/27 (Patient Refused) Start: 02-08-2024 Zoster Vaccines (2 o f 2) Zoster Vaccines (2 of 2) [facility] Comment on above: Postponed from 05/26 (Patient Refused) Start: 08-10-2023 Depression Monitoring Depression Mon itoring [facility] Start: 08-10-2023 [facility] Start: 06-30-2023 Lipid panel Lipid Panel [facility] Start: 06-30-2023 Thyroid stimulating hormone measurement TSH Level [facility] Start: 06-30-2023 Urine screening for protein Diabetes: Urine Protein Screening [facility] Start: 06-19-2023 Medicare Advantage Annual Wellness Visit Medicare Advantage Annual Wellness Visit [facility] Start: 06-14-2023 [facility] Start: 04-27-2023 End: 04-27-2023 Patient encounter procedure [facility] Medical [facility] Start: 04-27-2023 Depresssion Monitoring Depresssion M [facility] Start: 04-08-2023 Blood chemistry [facility] Start: 04-01-2023 Blood chemistry [facility] Start: 03-25-2023 Blood chemistry [facility] Start: 03-20-2023 SARS-CoV-2 (COVID-19 ) Ag [Presence] in Respiratory specimen by Rapid immunoassay [facility] Start: 03-19-2023 Development of care plan [facility] Start: 03-18-2023 Patient discharge [facility] Start: 03-17-2023 End: 03-17-2023 [facility] Start: 03-17-2023 Microbial culture, routine Wound Culture [facility] Start: 03-17-2023 Bacterial nucleic ac id assay [facility] Start: 03-13-[address] [facility] Start: 03-06-2023 Referral to director of program management [facility] Start: 03-04-2023 Development of care plan [facility] Start: 03-03-2023 Admission procedure [facility] Start: 03-03-2023 Measuring intake and output [facility] Start: 03-03-2023 Patient referral to dietitian [facility] Start: 03-03-2023 Referral to occupational therapist [facility] Start: 03-03-2023 Referral to service [facility] Start: 03-03-2023 Vital signs measurements [facility] Start: 03-03-[address] [facility] Start: 03-03-2023 Verification routine [facility] Start: 03-03-2023 End: 03-03-2023 Patient encounter procedure [facility] Medical [facility] Urogynecology Start: 03-03-2023 Patient referral to dietitian [facility] Start: 02-27-2023 End: 02-28-2024 Bacteria identified in Urine by Culture Urine culture (clean catch) Microbiology Routine Urinary tract infection symptoms Expected: 02/27/2023 (Approximate), Expires: 02/28/2024 [facility] Comment on above: Expected: 02/27/2023 (Approximate), Expires: 02/28/2024 Start: 02-27-2023 End: 02-28-2024 CBC W Auto Differential panel - Blood CBC auto differential Lab Routine History of GI bleed Expected: 02/27/2023 (Approximate), Expires: 02/28/2024 [facility] Comment on above: Expected: 02/27/2023 (Approximate), Expires: 02/28/2024 Start: 02-27-2023 End: 02-28-2024 Comprehensive metabolic 1998 panel - Serum or Plasma Comprehensive metabolic panel Lab Routine 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, with long-term current use of insulin, unspecified whether stage 3a or 3b CKD (HCC) Primary hypertension Hypokalemia Expected: 02/27/2023 (Approximate), Expires: 02/28/2024 [facility] Work Phone: Comment on above: Expected: 02/27/2023 (Approximate), Expires: 02/28/2024 Start: 02-27-2023 End: 02-28-2024 Magnesium [Mass/volume] in Serum or Plasma Magnesium Lab Routine 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, with long-term current use of insulin, unspecified whether stage 3a or 3b CKD (HCC) Hypokalemia Expected: 02/27/2023 (Approximate), Expires: 02/28/2024 [facility] Comment on above: Expected: 02/27/2023 (Approximate), Expires: 02/28/2024 Start: 02-27-2023 End: 02-28-2024 Thyrotropin [Units/volume] in Serum or Plasma TSH Lab Routine Acquired hypothyroidism Expected: 02/27/2023 (Approximate), Expires: 02/28/2024 [facility] Comment on above: Expected: 02/27/2023 (Approximate), Expires: 02/28/2024 Start: 02-27-2023 End: 02-27-2023 Patient encounter procedure 02/27/2023 1:00 PM EDT Office Visit [facility] Urogynecology [address] [place] [id number] Carolina Connolly, PUBLIC ADDRESS TECHNICIAN - LIQUOR RUNNER [address] [place], [place] [id number] [facility] Urogynecology Start: 02-24-2023 End: 02-24-2023 Patient encounter procedure 02/24/2023 11:20 AM EDT Office Visit [facility] Family Medicine [address] [place] [address] [place] [address] Katia Granados, PUBLIC ADDRESS TECHNICIAN - LIQUOR RUNNER [address] [place] [address] [place] [address] [facility] Start: 02-22-2023 End: 02-22-2023 Patient encounter procedure 02/22/2023 2:00 PM EDT Appointment [facility] [address] [place] [address] Lenard Magallanes, [address], [place] [id number] [facility] Start: 02-17-2023 COVID-19 Vaccine ( season) COVID-19 Vaccine ( season) [facility] Start: 02-17-2023 Influenza vaccination Influenza Vacc ine (#1) [facility] Start: 02-14-2023 End: 02-14-2023 Patient encounter procedure 02/14/2023 10:20 AM EDT Office Visit [facility] Family Medicine [address] [place] [address] [place] [address] Ronnychema Katia, PUBLIC ADDRESS TECHNICIAN - LIQUOR RUNNER [address] [place] [address] [place] [address] [facility] Medicine Start: 02-01-2023 End: 02-01-2023 Patient encounter procedure 02/01/2023 2:15 PM EDT Office Visit [facility] Medicine [address] [place] [address] Shiv Lopez MD [address] [place] [address] [place] [address] [facility] Start: 01-25-2023 End: 01-25-2023 Patient encounter procedure 01/25/2023 3:00 PM EDT Office Visit [facility] Medicine [address] [place] [address] Shiv Lopez MD [address] [place] [address] [place] [address] [facility] Medicine Start: 01-03-2023 Hemoglobin A1c measurement Diabetes: Hemoglobin A1C [facility] Start: 10-25-2022 End: 10-25-2022 Patient encounter procedure 10/25/2022 Office Visit Family Medicine Shiv Lopez MD [address] [place] [address] [place] [address] [facility] Start: 09-29-2022 End: 09-29-2022 Patient encounter procedure 09/29/2022 Office Visit Family Medicine Shiv Lopez MD [address] [place] [address] [place] [address] [facility] Start: 09-28-2022 Hemoglobin A1c measurement Diabetes: Hemoglobin A1C [facility] Start: 09-09-2022 Creatinine measurement Creatinine mo nitoring [facility] Start: 09-09-2022 Potassium monitoring Potassium monit oring [facility] Start: 09-09-2022 Thyroid stimulating hormone measurement TSH testing [facility] Start: 08-05-2022 Creatinine measurement Creatinine mo nitoring [facility] Start: 08-05-2022 Potassium monitoring Potassium monit oring [facility] Start: 07-08-2022 Depression Monitoring Depression Mon itoring [facility] Start: 06-30-2022 End: 06-30-2023 25-hydroxyvitamin D3 [Mass/volume] in Serum or Plasma Vitamin D 25 hydroxy Lab Routine Vitamin D deficiency Expected: 06/30/2022 (Approximate), Expires: 06/30/2023 [facility] Work Phone: Comment on above: Expected: 06/30/2022 (Approximate), Expires: 06/30/2023 Start: 06-30-2022 End: 06-30-2023 Comprehensive metabolic 1998 panel - Serum or Plasma Comprehensive metabolic panel Lab Routine Uncontrolled type 2 diabetes mellitus with hyperglycemia (HCC) Expected: 06/30/2022 (Approximate), Expires: 06/30/2023 [facility] Comment on above: Expected: 06/30/2022 (Approximate), Expires: 06/30/2023 Start: 06-30-2022 End: 06-30-2023 Hemoglobin A1c/Hemoglobin.total in Blood Hemoglobin A1c Lab Routine Uncontrolled type 2 diabetes mellitus with hyperglycemia (HCC) Expected: 06/30/2022 (Approximate), Expires: 06/30/2023 [facility] Comment on above: Expected: 06/30/2022 (Approximate), Expires: 06/30/2023 Start: 06-30-2022 End: 06-30-2023 Lipid 1996 panel - Serum or Plasma Lipid panel Lab Routine Hyperlipidemia with target LDL less than 70 Expected: 06/30/2022 (Approximate), Expires: 06/30/2023 [facility] Comment on above: Expected: 06/30/2022 (Approximate), Expires: 06/30/2023 Start: 06-30-2022 End: 06-30-2023 Microalbumin/Creatinine panel in random Urine Microalbumin / creatinine urine ratio Lab Routine Uncontrolled type 2 diabetes mellitus with hyperglycemia (HCC) Expected: 06/30/2022 (Approximate), Expires: 06/30/2023 [facility] Comment on above: Expected: 06/30/2022 (Approximate), Expires: 06/30/2023 Start: 06-30-2022 End: 06-30-2023 Thyrotropin [Units/volume] in Serum or Plasma TSH Lab Routine Acquired hypothyroidism Expected: 06/30/2022 (Approximate), Expires: 06/30/2023 [facility] Comment on above: Expected: 06/30/2022 (Approximate), Expires: 06/30/2023 Start: 06-22-[address] [facility] Start: 03-31-2022 Pneumococcal Vaccine : 65+ Years (2 - PCV) Pneumococcal Vaccine: 65+ Years (2 - PCV) [facility] Start: 02-28-2022 End: 02-28-2022 Patient encounter procedure 02/28/2022 Office Visit Family Medicine Shiv Lopez MD [facility] [place] [address] [facility] Start: 02-17-2022 Annual Wellness Visi t (AWV) Annual Wellness Visit (AWV) [facility] Start: 02-16-2022 Hepatitis C screening Hepatitis C sc reen [facility] Comment on above: Postponed from 08/27 (Patient Refused) Start: 02-16-2022 Thyroid stimulating hormone measurement TSH testing [facility] Start: 11-02-2021 Hemoglobin A1c measurement Diabetes: Hemoglobin A1C [facility] Start: 10-01-2021 Creatinine measurement Creatinine mo nitoring [facility] Work Phone: Start: 10-01-2021 Potassium monitoring Potassium monit oring [facility] Work Phone: Start: 09-13-2021 End: 09-13-2021 Patient encounter procedure 09/13/2021 Office Visit Family Shiv Freed MD [facility] [place] [place] [address] [facility] Start: 09-02-2021 End: 09-02-2021 Patient encounter procedure 09/02/2021 Office Visit Family Shiv Freed MD [address] [facility] [place] [place] [address] [facility] Start: 06-24-2021 Thyroid stimulating hormone measurement TSH testing [employer] Work Phone: Start: 06-24-2021 TSH Qn TSH testing [facility] Work Phone: Start: 06-21-2021 COVID-19 Vaccine (3 - Booster for Brian series) COVID-19 Vaccine (3 - Booster for Brian series) [facility] Start: 05-26-2021 Shingles Vaccine (2 of 2) Shingles Vaccine (2 of 2) [facility] Start: 05-26-2021 Zoster Vaccines (2 o f 2) Zoster Vaccines (2 of 2) [facility] Start: 04-20-2021 Creatinine measurement Creatinine mo nitoring [facility] Work Phone: Start: 04-20-2021 Potassium monitoring Potassium monit oring [employer] Work Phone: Start: 01-15-2021 Screening for osteoporosis DEXA (modify frequency per FRAX score) [employer] Phone: Comment on above: Postponed from 08/27 (Patient Refused) Start: 01-07-2021 Urine screening for protein Diabetes: Urine Protein Screening [facility] Start: 10-12-2020 End: 10-12-2020 Patient encounter procedure 10/12/2020 Office Visit Family Shiv Freed MD [address], [facility] [place] [place] [address] [phone] [facility] Start: 10-08-2020 End: 10-08-2020 Patient encounter procedure 10/08/2020 Office Visit Family Shiv Freed MD [address], [place] [address] [phone] Canceled (Patient) [facility] Comment on above: Canceled (Patient) Start: 10-01-2020 End: 10-01-2020 Office Visit 10/01/2020 Office Visit Family Medicine Shiv Lopez MD [address] [facility] [place] [place] [address] [phone] [facility] Start: 06-03-2020 Lipid panel Lipid screen [facility] Work Phone: Start: 01-21-2020 A1C test (Diabetic o r Prediabetic) A1C test (Diabetic or Prediabetic) [place] Start: 01-19-2020 TSH testing TSH testing [place], [place] Start: 06-07-2019 DTaP/Tdap/Td vaccine (1 - Tdap) DTaP/Tdap/Td vaccine (1 - Tdap) [place] Comment on above: Postponed from 08/27 (Patient Refused) Start: 05-23-2019 Diabetic retinal exam Diabetic retin al exam [place] Start: 04-12-2019 Lipid screen Lipid screen [place], [place] Start: 02-17-2019 Influenza vaccination Flu vaccine (# 1) [place] Start: 12-05-2018 Annual Wellness Visi t (AWV) Annual Wellness Visit (AWV) [facility] Work Phone: Start: 10-06-2017 [object Object] Diabetic foot exam [place], [place] Start: 10-06-2017 Annual Wellness Visi t (AWV) Annual Wellness Visit (AWV) [place] Start: 03-09-2013 Pneumococcal 65+ yea rs Vaccine (2 of 2 - PCV13) Pneumococcal 65+ years Vaccine (2 of 2 - PCV13) [place] Start: 08-27-2008 DEXA (modify frequen cy per FRAX score) DEXA (modify frequency per FRAX score) [place] Start: 08-27-2008 Pneumococcal 65+ yea rs Vaccine (1 of 2 - PCV13) Pneumococcal 65+ years Vaccine (1 of 2 - PCV13) [place] Start: 2003 RSV Immunization age d 60 or older (1 - 1-dose 60+ series) RSV Immunization aged 60 or older (1 - 1-dose 60+ series) [facility] Start: 08-27-1993 Colon cancer screen colonoscopy Colon cancer screen colonoscopy [place] Start: 08-27-1993 Shingles Vaccine (1 of 2) Shingles Vaccine (1 of 2) [place] Start: 08-27-1962 DTaP/Tdap/Td vaccine (1 - Tdap) DTaP/Tdap/Td vaccine (1 - Tdap) [facility] Start: 08-27-1962 DTaP/Tdap/Td Vaccine s (1 - Tdap) DTaP/Tdap/Td Vaccines (1 - Tdap) [facility] Start: 08-27-1961 Hepatitis C screening Hepatitis C Sc reening [facility] Start: 1959 COVID-19 Vaccine (1 of 2) COVID-19 Vaccine (1 of 2) [facility] Work Phone: Start: 1959 COVID-19 Vaccine (1) COVID-19 Vaccin e (1) [facility] Work Phone: Start: 08-27-1953 Diabetic foot examination Diabetes: Foot Exam [facility] Start: 08-27-1953 Glaucoma screening Diabetes: R etinopathy Screening [facility] Start: 08-27-1953 Preventive dental service Diabetes: Dental Exam [facility] Start: 1945 Hepatitis B Vaccines (1 of 3 - 3-dose series) Hepatitis B Vaccines (1 of 3 - 3-dose series) [facility] Start: 1945 Hepatitis C screening Hepatitis C sc reen [facility] Work Phone: Start: 1945 Thyroid stimulating hormone measurement TSH Level [facility] Dressing Order: Xeroform; Daily; Silicone foam borders (multiple sizes) Dressing Order: Xeroform; Daily; Silicone foam borders (multiple sizes) Wound Ostomy Routine Ordered: 02/15/2023 [facility] Work Phone: Comment on above: Ordered: 02/15/2023 EKG 12 Lead EKG 12 Lead ECG Routine 02/01/2019 7:40 PM EDT [facility] [place], [place] Patient referral [facility] Work Phone: Tissue exam [facility] Work Phone: Comment on above: Release Upon Orderin g for 1 Occurrences starting 12/07/2022, 1 completed Immunizations Immunization Date Immunization Notes Care Provider Fa cility 03-17-2023 Influenza High-Dose Quadrivalent [facility] 03-17-2023 influenza virus vacc ine, unspecified formulation Felicia Garcia 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 TOOL 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 [facility] 03-01-2023 Influenza Vac A&B SA Adj quadrivalent (Fluad) vaccine 0.5 mL Tasneem Whaley MD Work Phone: [facility] 04-26-2022 influenza, high dose seasonal, preservative-free Shiv Lopez MD Work Phone: [facility] 04-26-2022 Pneumococcal Conjuga te PCV20, Pf (Prevnar 20) Shiv Lopez MD Work Phone: [facility] 04-26-2022 influenza virus vacc ine, unspecified formulation Katia Rosaline PUBLIC ADDRESS TECHNICIAN - LIQUOR RUNNER Work Phone: [facility] 04-26-2021 COVID-19, Moderna, Primary or Immunocompromised, PF, 100mcg/0.5mL Sommer Chatterjee DPM Work Phone: [facility] Work Phone: 03-31-2021 Influenza, Quadv, adjuvanted, 65 yrs +, IM, PF (Fluad) Sommer Chatterjee DPM Work Phone: [facility] Work Phone: 03-31-2021 pneumococcal polysaccharide vaccine, 23 valent Sommer JARRETTM Work Phone: [facility] Work Phone: 03-31-2021 zoster vaccine recombinant Sommer JARRETTM Work Phone: [facility] Work Phone: 08-27-2020 COVID-19, J&J, PF, 0 .5 mL Shiv Lopez MD Work Phone: [facility] Work Phone: 03-31-2020 influenza virus vacc ine, unspecified formulation Shiv MERCADO Work Phone: 03-31-2020 Influenza, Quadv, adjuvanted, 65 yrs +, IM, PF (Fluad) Shiv Lopez [facility] Work Phone: 06-03-2019 influenza, high dose seasonal, preservative-free Shiv Lopez [facility] 05-25-2018 influenza, high dose seasonal, preservative-free Darya Berrios [facility] 05-13-2013 influenza virus vacc ine, unspecified formulation Darya Berrios [place] 05-13-2013 influenza virus vacc ine, whole virus Shiv Lopez [facility] Work Phone: 03-09-2012 pneumococcal Conjuga te, unspecified formulation Shiv Lopez [facility] Work Phone: 03-09-2012 pneumococcal polysaccharide vaccine, [address] [facility] 03-09-2012 pneumococcal vaccine , unspecified formulation [facility] 04-13-2010 pneumococcal polysaccharide vaccine, [address] [facility] 03-21-2001 pneumococcal polysaccharide vaccine, 23 valent Darya Berrios [place] Payers Date Payer Category Payer Self-pay [id number] 2024 Unknown [id number] 2024 Unknown [id number] 2022 Medicare HUMANA MEDICARE ADVANTAGE HUMANA MEDICARE [id number] 2022-Present [address] [address] [place] [address] Medicare O [id number] 2020 Medicare [id number]. [id number] 2020 Medicare [id number]. [id number] 2018 Medicare HUMANA MEDICARE HUMANA CHOICE-PPO MEDICARE xxxxxxxxx 2018-Present [address] [address] [place] [address] xxxxxxxxx [id number]. [id number] Private Health Insurance [facility]/ D & S [facility] [id number] Unknown Unknown [id number] Unknown [facility] DUAL ACCESS [id number] Unknown [id number] 2.16.840.1.848463.3.579.2. 462 Unknown [id number] 2.16.840.1.556837.3.579.2. 462 Unknown [id number] 2.16.840.1.617596.3.579.2. 462 Unknown [id number] 2.16.840.1.899813.3.579.2. 462 Unknown [id number] 2.16.840.1.696342.3.579.2. 462 Unknown [id number] 2.16.840.1.106049.3.579.2. 462 Unknown [id number] 2.16.840.1.268004.3.579.2. 462 Unknown [id number] 2.16.840.1.243808.3.579.2. 462 Unknown [id number] 2.16.840.1.200923.3.579.2. 462 Unknown [id number] 2.16.840.1.526673.3.579.2. 462 Unknown [id number] 2.16.840.1.433776.3.579.2. 462 Unknown [id number] 2.16.840.1.458639.3.579.2. 462 Unknown [id number] 2.16.840.1.284001.3.579.2. 462 Unknown [id number] 2.16.840.1.244757.3.579.2. 462 Unknown [id number] 2.16.840.1.352737.3.579.2. 462 Unknown [id number] 2.16.840.1.664596.3.579.2. 462 Unknown [id number] 2.840.1.100512.3.579.2. 462 Unknown [id number] 2.840.1.938590.3.579.2. 462 Unknown [id number] 2.16840.1.123533.3.579.2. 462 Unknown [id number] 2..840.1.181854.3.579.2. 462 Unknown [id number] 2.16.840.1.586920.3.579.2. 462 Unknown [id number] 2.16.840.1.412650.3.579.2. 462 Unknown [id number] 2.16.840.1.940217.3.579.2. 462 Unknown [id number] 2.16.840.1.375935.3.579.2. 462 Unknown [id number] 2.16.840.1.532433.3.579.2. 462 Unknown [id number] 2.16.840.1.439819.3.579.2. 462 Unknown [id number] 2.16.840.1.691783.3.579.2. 462 Unknown [id number] 2.16.840.1.637862.3.579.2. 462 Unknown [id number] 2.16.840.1.540236.3.579.2. 462 Unknown [id number] 2.16.840.1.673160.3.579.2. 462 Unknown [id number] 2.16.840.1.709266.3.579.2. 462 Unknown [id number] 2.16.840.1.734365.3.579.2. 462 Unknown [id number] 2.16.840.1.012621.3.579.2. 462 Unknown [id number] 2.16.840.1.079978.3.579.2. 462 Social History Date Type Detail Facility Start: 07-13-2020 End: 03-03-2023 Tobacco smoking status NHIS Never smoker [place] Start: 07-13-2020 End: 04-09-2022 Tobacco use and exposure Never used [employer] Phone: Start: 07-13-2020 End: 06-30-2022 Alcohol intake Current drinker of alcohol (finding) [facility] Phone: Start: 01-13-2015 Alcohol Comment Social [place], [place] Start: 1945 Sex Assigned At Female [facility] Phone: Start: 08-30-2021 End: 02-28-2023 Exposure to SARS-CoV-2 (event) Not sure [facility] [facility] Phone: Start: 01-18-2019 End: 12-13-2022 [facility] Sex Assigned At Not on file [place] Start: 02-01-2019 End: 03-03-2023 Tobacco smoking status NHIS Unknown if ever smoked [facility] Start: 10-14-2020 End: 12-13-2022 Alcohol intake [facility] Start: 02-16-2021 End: 04-26-2022 History SDOH Alcohol Frequency 1 [employer] Work Phone: Start: 02-15-2021 End: 04-26-2022 History SDOH Financial 3 [facility] Work Phone: Start: 02-15-2021 End: 04-26-2022 History SDOH Transport Med 2 [facility] Work Phone: Start: 04-09-2022 Alcohol Comment social [facility] Within the last year , have you been afraid of your partner or ex-partner? No [facility] How often to you hav e a drink containing alcohol? 2-4 times a month [facility] How many standard dr inks containing alcohol do you have on a typical day? 1 or 2 [facility] How often do you hav e 6 or more drinks on 1 occasion? Never [facility] How hard is it for y ou to pay for the very basics like food, housing, medical care, and heating Hard [facility] (I/We) worried wheth er (my/our) food would run out before (I/we) got money to buy more. Never true [facility] In the past 12 month s, has lack of transportation kept you from medical appointments or from getting medications? No [facility] Start: 12-07-2022 Alcohol Comment social; 1 mixed drink every 2 weeks [facility] Start: 04-07-2022 Gender identity Identifies as female gender (finding) [facility] Start: 04-07-2022 Sexual orientation Heterosexual (finding) [facility] Do you feel stress - tense, restless, nervous, or anxious, or unable to sleep at night because your mind is troubled all the time - these days [OSQ] Only a little [facility] Are you now , , , , never or living with a partner? [facility] Start: 09-18-2024 End: 10-14-2024 Sex Female (finding) [facility] Medical Equipment Procedure Code Equipment Code Equipment Origin al Text Equipment Identifier Dates Test blood sugar 4 times a day [id number] Start: 03-25-2020 End: 10-01-2020 2 daily [id number] Start: 03-20-2019 Test blood sugar 4 times daily [id number] Start: 01-01-2019 test blood sugar 4 times daily [id number] Start: 01-13-2020 300 each by Does not apply route 4 times daily [id number] Start: 01-01-2019 ASSURE COMFORT LANCETS 30G MISC [id number] Start: 09-07-2016 1 each by In Vit ro route 4 times daily [id number] Start: 01-01-2019 4 times a day [id number] Start: 09-22-2017 2 daily [id number] Start: 01-03-2019 4 times a day [id number] Start: 07-25-2018 1 each by In Vit ro route 4 times daily as needed (patient tests four times daily and as needed) Patient tests QID [id number] Start: 03-01-2021 Test blood sugar 4 times daily [id number] Start: 12-18-2020 1 each by In Vit ro route 4 times daily Accu-check [employer] [facility] [id number] Start: 06-22-2021 End: 08-05-2021 Test blood sugar 3 times a day.PLEASE FILL FOR QUIK TEST STRIPS [id number] Start: 09-09-2021 [id number] Start: 01-10-2022 End: 03-03-2023 Goals Date Patient [...] Facility 03-18-2023 Functional status Ambulates;Wilson r;Bathroom Privilege [facility] Work Phone: Mental Status Date Assessment Result Facility 03-18-2023 Cognitive function Voice/Name [facility] Work Phone: 03-18-2023 Cognitive function Appropriate;Tayler fonseca [facility] Work Phone: Clinical Notes 06-30-2022 to 12-29-2023 Felicia Garcia LPN - 12/29/2023 1:02 PM Oliva Garcia LPN - 12/29/2023 1:02 PM EDSarahi Dumont - 12/29/2023 1:02 PM EDT Note Date & Type Note Facility 12-29-2023 History of Presen t illness Narrative Please schedule AWV. documented in this encounter [facility] 12-29-2023 History of Presen t illness Narrative Please schedule AWV. Called patient---phone number is not working--sent letter by mail. documented in this encounter [facility] 05-19-2023 Note THE PT. WAS SCHEDULE D FOR AN OUTREACH TODAY. EMR REVIEWED. CM CALLED AND SPOKE WITH A STAFF MEMBER AT [facility] AND THE PT. IS STILL ADMITTED TO THE NURSING HOME FACILITY. CM WILL CONTINUE TO FOLLOW-UP WITH THE PT. ONCE SHE IS DISCHARGED TO HOME. [facility] 05-03-2023 Note THE PT. WAS SCHEDULE D FOR AN OUTREACH TODAY. EMR REVIEWED. CM CALLED AND SPOKE WITH A STAFF MEMBER AT [facility] AND THE PT. IS STILL ADMITTED TO THE NURSING HOME FACILITY. CM WILL CONTINUE TO FOLLOW-UP WITH THE PT. ONCE SHE IS DISCHARGED TO HOME. [facility] 03-29-2023 Note Referral from [employer] Daily Census Report. Patient with recent admit to [facility] 02/28-03[facility]03 with LING/functional decline and was discharged to [facility]. Patient with several chronic diagnoses. Will send referral to [facility] CMShari, for further chart review and potential ongoing CM. [facility] 03-17-2023 Discharge summary Note Date/Time March 15, 2023 7:15pm [facility] Medical Records Department [address] [place] [address] Discharge Summary 03/15/231913 MR#: [id number] Acct: [id number] Name: RADHA SANDOVAL Rep #:[id number] : 1945 77 From: Baljit Jaffe MD PCP: Dr. Shiv Lopez MD Status:ADM IN Location: [facility] TCU06-1 Providers Date of Admission: 03/03/23 Primary Care [...] - Buspar 5mg bid prn, stable chronic long-term use, GDR not recommended. * Vitamin D [...] Depression - Paroxetine 20mg qhs, stable chronic long-term use, GDR not recommended. * Restless Leg [...] unit/mL subcutaneous solution 19 unit subcut DAILY Gjeloysi50/15/23 insulin lispro 100 unit/mL subcutaneous pen (Humalog [...] for cellulitis bilateral lower extremities. Discharge to [facility] 03/18/2023, intermediate, Part B therapies. Physical Exam [...] and Uncontrolled pain Additional Instructions: Discharge to [facility] 03/18/2023, intermediate, Part B therapies. Meaningful Use Info Meaningful Use Diagnoses (Choose all that apply): None applicable Discharge Plan Admission Admit Date/Time: 03/03/23 13:30 Primary Reason for Your Visit: Debility. Attending Provider: Baljit Jaffe Chi Primary Care Provider: Shiv Lopez Consulting Providers: Omar Huitron Instructions Additional Instructions / Restrictions: Discharge to [facility] 03/18/2023, intermediate, Part B therapies. Discharge Orders/Prescriptions [...] bid x 10 days, culture pending at [facility] lab. 03/17/23 1545<Electronically signed by Baljit Jaffe MD> Cosigner Signature (if applicable): cc: Dr. Shiv Lopez MD; Dr. Baljit Jaffe MD ~* Signed [facility] Work Phone: 1(965) 250-649809-27-2023 Discharge summary Author [facility] March 15, 2023 7:35pm Note Date/Time March 15, 2023 7:35pm [facility] Medical Records Department [address] [place] [address] Transfer to [facility] MR#: [id number] Acct: [id number] Name: RADHA SANDOVAL Rep #:[id number] : 1945 77 From: Baljit Jaffe MD PCP: Dr. Shiv Lopez MD Status:ADM IN Certification of patient admission REQUIRED AT TIME OF ADMISSION. I CERTIFY THAT POST-HOSPITAL ECF SERVICES ARE REQUIRED TO BE GIVEN ON AN IN-PATIENT BASIS BECAUSE OF THE ABOVE NAMED PATIENT'S NEED FOR PRISON CARE ON A CONTINUING BASIS FOR THE CONDITION(S) FOR WHICH HE/SHE WAS RECEIVING IN-PATIENT HOSPITAL SERVICES PRIOR TO HIS/HER TRANSFER TO THE [facility]. 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 * Vitamin [...] Depression - Paroxetine 20mg qhs, stable chronic long-term use, GDR not recommended. * Restless Leg [...] Instructions Additional Instructions / Restrictions: Discharge to [facility] 03/18/2023, intermediate, Part B therapies. Discharge Orders/Prescriptions [...] ALEXI Huitron; Dr. Shiv Lopez MD ~ [facility] Work Phone: 1(220) 127-994509-27-2023 NotePlease send her immunization record [facility]09-20-2023 Consult note Author Shine Rojas [facility] March 08, 2023 11:33am Note Date/Time March 08, 2023 11:33am [facility] Medical Records Department [address] [place] [address] Consultation 03/08/23 1130 MR#: [id number] Acct: [id number] Name: RADHA SANDOVAL Rep #:[id number] : 1945 77 From: Shine Rojas DPM PCP: Dr. Shiv Lopez MD Status:ADM IN [facility] Assessment & Plan Assessment/Plan (1) Type 2 [...] controlled today not causing patient any issues. [facility] Medical History Anemia Arthritis Chronic pain Chronic [...] unit/mL subcutaneous solution 19 unit subcut DAILY Neujxelo47/15/23 [History Last Taken 03/03/23] insulin lispro 100 [...] Lopez MD; Dr. Baljit Jaffe MD~ Signed [facility] Work Phone: 1(507) 320-181409-19-2023 Progress note Author Betty Hicks [facility] March 07, 2023 4:16pm Note Date/Time March 07, 2023 3:00pm [facility] Medical Records Department [address] [place] [address] Progress Note - Pharmacy 03/07/23 1456 MR#: [id number] Acct: [id number] Name: RADHA SANDOVAL Rep #:[id number] : 1945 77 From: Betty Hicks PCP: Dr. Shiv Lopez MD Status:ADM IN Location: [facility] [place] [address] TCU RX Drug Regimen Review Subjective/Objective Subjective/Objective: [...] 20 Mg Tablet PO 20 mg QHS [facility] Administration Baclofen 10 mg 03/04/23 08:00 03/07/23 08:52 Baclofen 10 Mg Tablet PO 10 mg DAILYCM [facility] Administration Buspirone HCl 5 mg 03/03/23 16:01 03/06/23 22:26 Buspirone 5 Mg Tablet PO 5 mg BID PRN Administration anxiety Calamine/Phenol 1 applic 03/03/23 22:00 03/07/23 08:52 Menthol/Lanolin/Calamine/Znox 113 Gm Tube TOPICAL 1 applic BID [facility] Administration Protocol Enoxaparin Sodium 40 mg 03/04/23 06:00 03/07/23 06:43 Enoxaparin 40 Mg/0.4 Ml Syringe SC 40 mg DAILY@0600 [facility] Administration Ergocalciferol 1.25 mg 03/10/23 08:00 Ergocalciferol 1.25 Mg (50, 000 Unit) Capsule PO QWEEK [facility] Hydralazine HCl 25 mg 03/03/23 22:00 03/07/23 14:08 Hydralazine 25 Mg Tablet PO 25 mg TID [facility] Administration Hydroxyzine Pamoate 25 mg 03/07/23 08:07 03/07/23 14:50 Hydroxyzine Juanita 25 Mg Capsule PO 25 mg TID PRN PRN Administration ITCHING/ANXIETY Insulin Glargine 19 unit 03/04/23 10:00 03/07/23 08:52 Insulin Glargine-Yfgn 100 Unit/Ml Pen SC 19 unit DAILY [facility] Administration Insulin Human Lispro 10 unit 03/03/23 16:45 03/07/23 11:54 Insulin Lispro 100 Unit/Ml Insuln.Pen SC 10 unit TIDAC [facility] Administration Levothyroxine Sodium 125 mcg 03/04/23 06:00 03/07/23 06:43 Levothyroxine 125 Mcg Tablet PO 125 mcg DAILY@0600 [facility] Administration Magnesium Citrate 300 ml 03/03/23 16:40 Magnesium Citrate 300 Ml PO DAILY PRN CONSTIPATION Melatonin 3 mg 03/03/23 22:00 03/06/23 20:54 Melatonin 3 Mg Tablet PO 3 mg QHS [facility] Administration Nutritional Formula (Lactose Free) 120 ml 03/03/23 17:45 03/07/23 11:48 Glucerna Shake 120 Ml Liquid PO 120 ml TIDCM [facility] Administration Nystatin 1 applic 03/03/23 22:00 03/07/23 [...] 03/07/23 1616 <Electronically signed by Betty Hicks> eBtty Hicks Cosigner Signature (if applicable): CC: ~ Signed [facility] Work Phone: 1(997) 360-698709-15-2023 History and physical note Author Baljit Jaffe [facility] March 03, 2023 4:39pm Note Date/Time March 03, 2023 3:08pm [facility] Medical Records Department [address] [place] [address] History & Physical Exam 03/03/23 1501 MR#: [id number] Acct: [id number] Name: RADHA SANDOVAL Rep #:[id number] : 1945 77 From: Baljit Jaffe MD PCP: Dr. Shiv Lopez MD Status:ADM IN Location: [facility] [place] [address] HPI - General General Date of Admission: 03/03/23 Date of Service: 03/03/23 Chief Complaint: Here for rehabilitation. HPI Narrative RADHA SANDOVAL, is a 77 Female who presents with followin02/27/2023 Dr. Shiv Lopez prescribed Augmentin for dysuria, polyuria, low back pain for urinary tract infection. Augmentin not started, symptoms worse, patient presented to ED. 02/28/2023 Admit to [facility]. Low back pain, dysuria, polyuria, weakness. Diabetes with hyperglycemia, weakness, urinary tract infection. IV antibiotics for urinary tract infection. IV fluids, sliding scale insulin for Diabetes Mellitus II. PT/OT for weakness. 03/01/2023 Feels better, weak, pain improved. Continue IV antibiotics. 03/03/2023 Admit to TCU with debility, here for rehabilitation, strengthening, prior to discharge home alone. [facility] Medical History Anemia Arthritis Chronic pain Chronic [...] unit/mL subcutaneous solution 19 unit subcut DAILY Wkuzfsoy73/15/23 [History Last Taken 03/03/23] insulin lispro 100 [...] - Buspar 5mg bid prn, stable chronic long-term use, GDR not recommended. * Vitamin D [...] Depression - Paroxetine 20mg qhs, stable chronic long-term use, GDR not recommended. * Restless Leg syndrome - Mirapex 0.25mg qhs. 03/03/23 1639 <Electronically signed by Baljit Jaffe MD> Cosigner Signature (if applicable): CC: Dr. Shiv Lopez MD; Dr. Baljit Jaffe MD~ Signed [facility] Work Phone: 1(619) 361-424509-15-2023 History of Present illness Narrative* Randi Marquez RN - 03/03/2023 1:08 PM EDT Discharged via ambulance to [facility] * Randi Marquez RN - 03/03/2023 11:19 AM EDT Report called to pippa at [facility] at [phone] * Jelly Paz APRN - [facility] - 03/02/2023 12:54 PM EDT Images from the original note were not included. Department of Internal Medicine Division of Endocrinology, Diabetes, & Metabolism Endocrinology Note Patient Name: Radha Sandoval : 1945 AGE: 77 y.o. Room/Bed: [facility] [place] Admission Date: 02/28/2023 Visit Date: 03/02/2023 Reason for Endocrine Consult: DM-Uncontrolled Provider/Team Requesting Consult: Dr. Finch PCP: Shiv Lopez MD Outpt Glass Wool Blanket Machine Feeder: No ASSESSMENT: Type II diabetes with hyperglycemia, with extermination supervisor insulin use Postoperative hypothyroidism Patient admitted for [...] breakfast Patient to discharge to SNF - [facility] Outpt Follow Up-- PCP SUBJECTIVE/HPI: CHIEF [...] diagnosis. She has been having diarrhea in 6037-0494, smt severe Glimepiride- started in 2015 Trulicity [...] CHOLHDLRATIO 4 02/16/2021 No results found for: [id number] Lab Results Component Value Date TSH 0.03 [...] 12/07/2022 Performed by Avery Marshall DO at [facility] ENDOSCOPY EYE SURGERY Bilateral early 90's [...] were not included. Occupational Therapy OCCUPATIONAL THERAPY [facility] ED's Treatment Note Name/MRN: Radha Sandoval ([id number]) Date of : 1945 Age: 77 y.o. [...] note were not included. Hospitalist Progress Note 03/02/[id number]: Please secure chat me for patient care issues. [phone]: Please secure chat [facility] Hospitalist for any issues. Subjective: Admit Date: 02/28/2023 PCP: Shiv Lopez MD Room#: B1-153/B1-153 A Interval History: Tolerating diet. Remains weak. Still urinating frequently. She denies chest pain,sob, cough, abdominal pain, nausea, vomiting, diarrhea, constipation, fevers, or chills. D/w pt Adult diet Regular; Low Sodium (2 gm); 4 carb choices (60 gm/meal) @[id number]@ 24HR INTAKE/OUTPUT: No intake or output data [...] Information Primary Emergency Contact: Angel Roger Address: [address] Mobile Relation: Child GABRIELLE FINCH MD Division of Hospitalist Medicine [facility] PAGER: Epic chat * Diann Hollis, ELSA - LIQUOR RUNNER - 03/02/2023 9:31 AM EDT [facility] Geriatric Medicine Inpatient Consult Service Admission Date: 02/28/2023 Assessment Principal Problem: LING (acute kidney injury) (CMS/HCC) ([facility]) Active Problems: Declining functional status Weakness Anxiety Polypharmacy DNR (do not resuscitate) Insomnia Plan Declining functional status -Related to physical deconditioning, UTI, advanced age, diabetes type 2 -Continue PT/OT as able while inpatient -Anticipate d/c to SNF for ongoing daily PT/OT, patient agreeable to go to [facility] Fall Weakness -Multiple risk factors including [...] contact guard. Ambulated 30 ft x2. Recommending assisted facility . Review of Systems Constitutional: Negative [...] Daily, Gabrielle Finch MD, 10 mg at 03/01/23 2110 amoxicillin-clavulanate (Augmentin) 875-125 MG per tablet 1 tablet, 1 tablet, Oral, BID, Gabrielle Finch MD, 1 tablet at 03/02/23908 baclofen (Lioresal) tablet 10 mg, 10 mg, Oral, Daily, Gabrielle Finch MD, 10 mg at 03/01/232110 busPIRone (Buspar) tablet 5 mg, 5 mg, Oral, BID PRN, Adam Holt MD chlorhexidine (Hibiclens) 4 % liquid, , Topical, Daily PRN, ELSA Rosenbaum CNP cholecalciferol (Vitamin D3) tablet 1,000 Units, 1,000 [...] 19 Units, 19 Units, SubCUTAneous, q AM, ELSA Reis CNP, 19 Units at 03/02/23908 Insulin Lispro (Humalog) injection 0-12 Units, 0-12 Units, SubCUTAneous, TID WC, 2 Units at 03/02/23908 AND [DISCONTINUED] Insulin Lispro (Humalog) injection 0-12 Units, 0-12 Units, SubCUTAneous, Nightly, Gabrielle Finch MD, 4 Units at 02/28/232053 Insulin Lispro (Humalog) injection 6 Units, 6 Units, SubCUTAneous, 4x daily AC & HS, ELSA Reis CNP, 6 Units at 03/02/23604 levothyroxine (Synthroid, Levoxyl) tablet 150 mcg, 150 mcg, Oral, Daily, Gabrielle Finch MD, 150 mcg at 03/02/23 06 melatonin tablet 3 mg, 3 mg, Oral, [...] 0.03 (L) 02/27/2023 No results found for: [id number] Lab Results Component Value Date VITD25 17 (L) 03/02/2023 Reviewed: allergies, previous encounters, imaging, active problem lists, medications, and labs * Edelmira Hanna - 03/02/2023 8:23 AM EDT Nutrition rescreen completed. Pt referred to RD for uncontrolled DM, and nutrition supplement per Wound Care. * Monet Mcdonnell, PT - 03/01/2023 3:47 PM EDT Physical Therapy Facility/Department: [address] Physical Therapy Initial Evaluation NAME: Radha Sandoval : 1945 Date of Service: 03/01/2023 Discharge Recommendations: Detention Facility, Continue to assess pending progress PT [...] LING (acute kidney injury) (CMS/HCC) ([facility]). Diagnoses of Pyelonephritis, Polypharmacy, Insomnia, unspecified type, and Pressure ulcer of right buttock, stage 3 ([facility]) were also pertinent to this [...] Device: straight cane Transfer Assistance: Independent Active Blanking Press Operator: Yes Objective Observation/Palpation Posture: Good Observation: PIV [...] note were not included. Hospitalist Progress Note 03/01/20236998706-2601: Please secure chat me for patient care issues. [phone]: Please secure chat [facility] night Hospitalist for any issues. Subjective: Admit Date: 02/28/2023 PCP: Shiv Lopez MD Room#: B1-153/B1-153 A Interval History: Feels better. Weak. Tolerating diet. Pain markedly improved. She denies chest pain, sob, cough, abdominal pain, nausea, vomiting, diarrhea, constipation, fevers, or chills. D/w pt and Geriatrics separately. Adult diet Regular; Low Sodium (2 gm); 4 carb choices (60 gm/meal) @[id number]@ 24HR INTAKE/OUTPUT: No intake or output data [...] Information Primary Emergency Contact: Angel Roger Address: [address] Mobile Relation: Child GABRIELLE FINCH MD Division of Hospitalist Medicine [employer] PAGER: Epic chat * Gunner Roberts, OT - 03/01/2023 11:54 AM EDT Images from the original note were not included. Occupational Therapy OCCUPATIONAL THERAPY [facility] ED's Initial Evaluation Name/MRN: Radha Sandoval ([id number]) Evaluation Date: 03/01/2023 Date of : 1945 [...] 12/07/2022 Performed by Avery Marshall DO at [facility] ENDOSCOPY EYE SURGERY Bilateral early 90' LUNG REMOVAL, PARTIAL Left ROTATOR CUFF REPAIR Left TONSILLECTOMY Admission Diagnosis: Patient Active Problem List Diagnosis Date Noted LING (acute kidney injury) (CMS/HCC) (HCC) 02/28/2023 Acute cystitis with hematuria 02/27/2023 [...] 2 diabetes mellitus with hyperglycemia ([facility]) 01/16/2020 Morbidly obese ([facility]) 01/16/2020 Vitamin D deficiency 01/16/2020 Moderate episode of recurrent major depressive disorder ([facility]) 06/03/2019 Chronic renal insufficiency, stage III (moderate) ([facility]) 06/03/2019 Hyperlipidemia with target LDL [...] Responsibilities: Independent Receives Help From: None Active Blanking Press Operator: Yes Prior Level of Function ADL Assistance: [...] of Care supervision is transferred to a [facility] Therapy Services Occupational Therapist. Goals and/or treatment plan was established in collaboration with patient/family/other representatives. documented in this [facility]09-15-2023 Hospital course Narrative* Gabrielle Finch MD - [...] wound care RECOMMENDED NEXT STEPS: Transferred to [facility] SNF. Continue close monitoring of [...] mg) by mouth daily. ergocalciferol 1.25 MG (46769 UT) capsule Commonly known as: Vitamin D-2 [...] Your Medications These medications were sent to [facility] [address] [place] [id number] Hours: Monday to Monday 10 am to [...] Complexity: follow up within 7-14 calendar days (75134) [] Severe Complexity: follow up within 7 calendar days (78805) FOLLOW UP TESTING, PENDING RESULTS OR REFERRALS AT TRANSITIONAL CARE VISIT: [] Yes [] No PENDING STUDIES: No DISPOSITION: SNF FACILITY/HOME CARE AGENCY NAME: [facility] Follow up with [facility] Geriatrics [address] [facility] [address] INSTRUCTIONS TO MA/SW: Please call patient [...] MD 03/03/2023, 5:28 PM documented in this [facility]09-15-2023 NoteDischarge Summary Radha Sandoval : 1945 ADMIT [...] wound care RECOMMENDED NEXT STEPS: Transferred to [facility] SNF. Continue close monitoring of [...] mg) by mouth daily. ergocalciferol 1.25 MG (00129 UT) capsule Commonly known as: Vitamin D-2 [...] taking these medications amoxicillin-clavulan (more content not included)...[facility] 03-03-2023 Note* Care Coordination - Ester Lipscomb - 03/03/2023 11:21 AM EDT Discharge med list transmitted to [facility] via [facility] per TCC request. [id number] Miscellaneous Notes* Restricted notes were excluded * Care Coordination - Ester Lipscomb - 03/03/2023 11:21 AM EDT Discharge med list transmitted to [facility] per TCC request. * Care Coordination - Unknown Case Management - 03/03/2023 11:20 AM EDT Patient Choice Patient Name: RADHA SANDOVAL Date of : 1945 All Providers Sent Referral Name: [facility] Transitional Care Unit [facility] Address: [facility] [place] [id number] Name: [facility] [employer] Address: [address] [place] [address] * Care Coordination - Laura Jackson RN - 03/03/2023 9:33 AM EDT Spoke with pt at bedside regarding POA, pt states she is not interested at this time to complete itand would consider completing at [place] - did call Rafaela at [place] to update her as well. * Care Coordination - COLT Hill - 03/03/2023 8:41 AM EDT Transportation arranged through [facility] by cot set for 10 am tile picker. Will notify RN and TCC of this in rounds. Notified patient's son via phone of transportation time. SW remains available if any other needs concerns arise. * Care Coordination - Laura Jackson RN - 03/03/2023 7:29 AM EDT Insurance auth obtained for [facility], updated Dr Finch notified via [employer]. * Care Coordination - Laura Jackson RN - 03/02/2023 11:15 AM EDT Received a call from Rafaela at [facility], they are able to accept, pt agreeable. 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 [employer] auth for [facility] at this time * Care Coordination - Ester Lipscomb - 03/02/2023 8:40 AM EDT Referral placed to SNF- [facility] via [facility] per TCC request. Await review and response regarding ability to accept. TCC notified. * Care Coordination - Laura Jackson RN - 03/02/2023 8:21 AM EDT Spoke with pt agreeable for referral to [facility], [facility] tasked to complete * Home Care - Tasneem Anaya LPN - 03/01/2023 4:25 PM EDT Crimping 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 For Metal following case for Discharge Needs. Therapy states SNF, but Patient wants HC instead. * Care Coordination - Laura Jackson RN - 03/01/2023 10:14 AM EDT Care Managment Initial Assessment Date: 03/01/2023 Patient Name: Radha Sandoval : 1945 Patient Information Source of Information: Patient Cognition/Language: WFL - Within Functional Limits Permission given to speak with patient patient relations representative/caregiver as indicated: Yes Confirmation of Payer [...] Prescription Coverage: Yes Pharmacy Used: [facility] Medication Management: Independent Transportation/Shopping: Independent Transportation Mode: [...] fall injury Outcome: Progressing documented in this encounterSUK [id number] Note* Care Coordination - Unknown Case Management - 03/03/2023 11:20 AM EDT Patient Choice Patient Name: RADHA SANDOVAL Date of : 1945 All Providers Sent Referral Name: [facility] SNF Address: [address] [place], [place] [phone] [facility] Address: [address] [place] [address] [id number] Note* Care Coordination - Laura Jackson RN - 03/03/2023 9:33 AM EDT Spoke with pt at bedside regarding POA, pt states she is not interested at this time to complete itand would consider completing at [place] - did call Rafaela at [place] to update her as well. [facility]Aauxku01-21-4174 Note* Care Coordination - COLT Hill - 03/03/2023 8:41 AM EDT Transportation arranged through [facility] by cot set for 10 am tile picker. Will notify RN and TCC of this in rounds. Notified patient's son via phone of transportation time. SW remains available if any other needs concerns arise. [facility] [id number] Note* Care Coordination - Laura Jackson RN - 03/03/2023 7:29 AM EDT Insurance auth obtained for [facility], updated Dr Finch notified via [employer] Chat. [facility] [id number] Note* Care Coordination - Laura Jackson RN - 03/02/2023 11:15 AM EDT Received a call from Rafaela at [facility], they are able to accept, pt agreeable. 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 [employer] auth for [facility] at this time [facility] [id number] NoteHospitalist Progress Note 03/02/[id number]: Please secure chat me for patient care issues. [phone]: Please secure chat [facility] Hospitalist for any issues. Subjective: Admit Date: 02/28/2023 PCP: Shiv Lopez MD Room#: B1-153/B1-153 A Interval History: Tolerating diet. Remains weak. Still urinating frequently. She denies chest pain, sob, cough, abdominal pain, nausea, vomiting, diarrhea, constipation, fevers, or chills. D/w pt Adult diet Regular; Low Sodium (2 gm); 4 carb choices (60 gm/meal) @[id number]@ 24HR INTAKE/OUTPUT: No intake or output data [...] Information Primary Emergency Contact: Angel Roger Address: [address] Mobile Relation: Child GABRIELLE FINCH MD Division of Hospitalist Medicine (more content not included)...[facility]09-14-2023 Note* Care Coordination - Ester Lipscomb - 03/02/2023 8:40 AM EDT Referral placed to [facility] via [facility] per TCC request. Await review and response regarding ability to accept. TCC notified. [facility] [id number] NoteReferral placed to [facility] via [facility] per TCC request. Await review and response regarding ability to accept. TCC notified. [facility]09-14-2023 Note* Care Coordination - Laura Jackson RN - 03/02/2023 8:21 AM EDT Spoke with pt agreeable for referral to [facility] COMMERCIAL CREDIT PORTFOLIO MANAGER tasked to complete [facility] [id number] NoteSpoke with pt agreeable for referral to [facility], COMMERCIAL CREDIT PORTFOLIO MANAGER tasked to complete [facility]09-13-2023 Note* Home Care - Tasneem Anaya LPN - 03/01/2023 4:25 PM EDT Crimping 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 For Metal following case for Discharge Needs. Therapy states SNF, but Patient wants HC instead. [facility] [id number] Consult note* Rosalinda Burrows APRN - LIQUOR RUNNER - 03/01/2023 2:34 PM EDT Images from the original note were not included. [facility] Wound Care CONSULT Note Radha Sandoval [...] AND POLYPECTOMY N/A 12/07/2022 Performed by Avery Marhsall DO at [facility] ENDOSCOPY EYE SURGERY Bilateral early 90's [...] tablet 0 ergocalciferol (Vitamin D-2) 1.25 MG (62238 UT) capsule Take 1 capsule (1.25 mg) [...] Care to follow Please follow up at [facility] wound care center after hospital discharge. Thank [...] reflectmy own independent evaluation of this patient. [facility] [id number] Consult note* ELSA Rosenbaum CNP - 03/01/2023 2:34 PM EDT Images from the original note were not included. [facility] Wound Care CONSULT Note Radha Sandoval [...] 2 diabetes mellitus with hyperglycemia ([facility]) 01/16/2020 Morbidly obese ([facility]) 01/16/2020 Vitamin D deficiency 01/16/2020 Moderate episode of recurrent major depressive disorder ([facility]) 06/03/2019 OAB (overactive bladder) 05/06/2021 Localized edema 10/01/2020 Insomnia 04/06/2015 Dyspnea on exertion 09/09/2021 Muscle spasms of both lower extremities 09/09/2021 Chronic renal insufficiency, stage III (moderate) ([facility]) 06/03/2019 Restless legs syndrome (RLS) [...] Depression Dietary counseling and surveillance Hyperlipidemia Hyperparathyroidism ([facility]) Malaise and fatigue Morbid obesity ([facility]) Muscle weakness Nevus, non-neoplastic Pain in limb Pure hypercholesterolemia RLS (restless legs syndrome) Type 2 diabetes mellitus (HCC) Varicella PAST SURGICAL HISTORY Past Surgical History: Procedure Laterality Date APPENDECTOMY CHOLECYSTECTOMY 1979 COLONOSCOPY 06/19/2008 COLONOSCOPY W/ BIOPSIES AND POLYPECTOMY N/A 12/07/2022 Performed by Avery Marshall DO at [facility] ENDOSCOPY EYE SURGERY Bilateral early 90's [...] tablet 0 ergocalciferol (Vitamin D-2) 1.25 MG (48036 UT) capsule Take 1 capsule (1.25 mg) [...] Care to follow Please follow up at [facility] wound care [facility] after hospital discharge. Thank you for the [...] from the original note were not included. [facility] Geriatric Medicine Inpatient Consult Service Admission Date: 02/28/2023 Admission Status: INPATIENT Chief Complaint: "I couldn't get around and they directed me to the hospital because I was peeing constantly from that UTI." Reason for Appointment Geriatrics consulted for "functional decline" Assessment/Plan Principal Problem: LING (acute kidney injury) ([facility]/HCC) ([facility]) Active Problems: Declining functional status [...] necessary I recommended follow up at our [facility] at [phone]. Call in 2 weeks for memory (re)testing once acute issue(s) resolve - order placed in [facility] for follow-up Other I deferred full MMSE [...] accidents, getting lost. Knows she's here at [facility] due to UTI. States she was [...] Healthcare Power ofAttorney: No Financial Power of Keymodule Assembly Supervisor: No Living Will:No Code Status: DNRCCA - [...] HS, Gabrielle Finch MD, 16 Units at 09/13/23 0757 levothyroxine (Synthroid, Levoxyl) tablet 150 mcg, [...] 12/07/2022 Performed by Avery Marshall DO at [facility] ENDOSCOPY EYE SURGERY Bilateral early 90' [...] Limits Permission given to speak with patient patient relations representative/caregiver as indicated: Yes Confirmation of Payer [...] Prescription Coverage: Yes Pharmacy Used: [facility] Medication Management: Independent Transportation/Shopping: Independent Transportation Mode: [...] questions right regarding "911," current [place] President, 08/19 delayed recall, reason for admission. She's A&OX3. [...] recommendations communicated to primary service I used [employer] secure messaging to message Dr. Finch on 03/01/23 at 12:35 to notify that geriatrics consult note has been completed and to page or call my personal cell with any questions. * Michelle Valle RN - 03/01/2023 9:33 AM EDTAssociated Order(s): IP CONSULT TO OPERATIONS ACCOUNTANT This patient is not a new diabetic or new to insulin therapy and therefore does not meet our current criteria for the inpatient diabetes education service. The clinical bedside RN should provide any necessary diabetes education using the Diabetes SurvivalSkills Booklet available on the unit. Please consider a dietary consult if appropriate and if not already ordered. Contact [facility] pharmacist for assistance if a new glucometer or any associated supplies are needed. Thank you. Elder MUÑOZ,BSN,[facility] * Jelly Paz APRN - LIQUOR RUNNER - 03/01/2023 8:03 AM EDTAssociated Order(s): IP CONSULT TO ENDOCRINOLOGY Department of Internal Medicine Division of Endocrinology, Diabetes, & Metabolism Endocrinology Note Patient Name: Radha Sandoval : 1945 AGE: 77 y.o. [facility] [place] [place] [facility] Admission Date: 02/28/2023 Visit Date: 03/01/2023 Reason for Endocrine Consult: DM-Uncontrolled Provider/Team Requesting Consult: Dr. Finch PCP: Shiv Lopez MD Outpt Glass Wool Blanket Machine Feeder: No ASSESSMENT: Type II diabetes with hyperglycemia, with long-term insulin use Postoperative hypothyroidism PLAN: Humalog 6 [...] diagnosis. She has been having diarrhea in 7471-0934, smt severe Glimepiride- started in 2015 Trulicity [...] CHOLHDLRATIO 4 02/16/2021 No results found for: [id number] Lab Results Component Value Date TSH 0.03 [...] 12/07/2022 Performed by Avery Marshall DO at [facility] ENDOSCOPY EYE SURGERY Bilateral early LUNG [...] date of this note. documented in this [facility]09-13-2023 NoteHospitalist Progress Note 03/01/2023 [phone]: Please secure chat me for patient care issues. [phone]: Please secure chat [facility] Hospitalist for any issues. Subjective: Admit Date: 02/28/2023 PCP: Shiv Lopez MD Room#: B1-153/B1-153 A Interval History: Feels better. Weak. Tolerating diet. Pain markedly improved. She denies chest pain, sob, cough, abdominal pain, nausea, vomiting, diarrhea, constipation, fevers, or chills. D/w pt and Geriatrics separately. Adult diet Regular; Low Sodium (2 gm); 4 carb choices (60 gm/meal) @[id number]@ 24HR INTAKE/OUTPUT: No intake or output data [...] Contact Information Primary Emergency (more content not included)...[facility] 03-01-2023 Hospital Discharge instructions* Discharge Instructions* Adam [...] You can also try over the counter (RETIREMENT brand like [employer] Made) melatonin 3mg at [...] Information Primary Emergency Contact: Angel Roger Address: [address] Mobile Relation: Child Past Surgical History: Past Surgical History: Procedure Laterality Date APPENDECTOMY CHOLECYSTECTOMY 1979 COLONOSCOPY 06/19/2008 COLONOSCOPY W/ BIOPSIES AND POLYPECTOMY N/A 12/07/2022 Performed by Avery Marshall DO at [facility] ENDOSCOPY EYE SURGERY Bilateral early 90's [...] List * (Principal) LING (acute kidney injury) ([facility]/HCC) ([facility]) Diabetes mellitus due to underlying condition with diabetic chronic kidney disease ([facility]) DDD (degenerative disc disease), lumbar Chronic right-sided low back pain with right-sided sciatica Urinary frequency Chronic left shoulder pain Other chronic sinusitis Gastrointestinal bleed Hypokalemia Wound of right buttock Acute cystitis with hematuria Diarrhea Declining functional status Weakness Anxiety (Chronic) Polypharmacy (Chronic) DNR (do not resuscitate) Dependent edema Uncontrolled type 2 diabetes mellitus with hyperglycemia ([facility]) Morbidly obese ([facility]) Vitamin D deficiency Moderate episode of recurrent major depressive disorder ([facility]) OAB (overactive bladder) Localized edema Insomnia Dyspnea on exertion Muscle spasms of both lower extremities Chronic renal insufficiency, stage III (moderate) ([facility]) Restless legs syndrome (RLS) Hyperlipidemia [...] assistance Toileting Minimal assistance Feeding Minimal assistance Contract Coordinator Minimal assistance Med Delivery yes Wound Care Documentation and Therapy: Wound/Incision 02/15/23 Pressure Injury Buttock Right;Midline (Active) Site Assessment Blanchable erythema;Clean;Dry;[place];Red 03/02/23 1100 Wound Length (cm) 1 cm [...] output data in the 24 hours ending 03/03/23728 No intake/output data recorded. Safety Concerns: none [...] Score: @READMISSIONRISKDETAILS@ Discharging to Facility/ Agency Name: [address] Open 24 hours Dialysis Facility (if applicable) Name: Address: Dialysis Schedule: Phone: Fax: Coding 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/Geodetic Computator signature: ICIAN SECTION Prognosis: good Condition at Discharge: stable Rehab Potential (if transferring to Rehab): excellent Recommended Labs or Other Treatments After Discharge: BMP/CBC in one week. MBS ac and hs Physician Certification: I certify the above information and transfer of Radha Sandoval is necessary for the continuing treatment of the diagnosis listed and that she requires longterm facility for less than 30 days. Update Admission H&P: No change in H&P PHYSICIAN SIGNATURE: documented in this [facility]09-13-2023 Consult note* Adam Holt MD - 03/01/2023 11:26 AM EDTAssociated Order(s): IP CONSULT TO GERIATRICS Images from the original note were not included. [facility] Geriatric Medicine Inpatient Consult Service Admission Date: 02/28/2023 Admission Status: INPATIENT Chief Complaint: "I couldn't get around and they directed me to the hospital because I was peeing constantly from that UTI." Reason for Appointment Geriatrics consulted for "functional decline" Assessment/Plan Principal Problem: LING (acute kidney injury) ([facility]/HCC) ([facility]) Active Problems: Declining functional status [...] necessary I recommended follow up at our [facility] at [phone]. Call in 2 weeks for memory (re)testing once acute issue(s) resolve - order placed [facility] for follow-up Other I deferred full MMSE [...] accidents, getting lost. Knows she's here at [facility] due to UTI. States she was [...] Healthcare Power ofAttorney: No Financial Power of Keymodule Assembly Supervisor: No Living Will:No Code Status: DNRCCA - [...] 12/07/2022 Performed by Avery Marshall DO at [facility] ENDOSCOPY EYE SURGERY Bilateral early 90's [...] Limits Permission given to speak with patient patient relations representative/caregiver as indicated: Yes Confirmation of Payer with patient/family: Yes Payer Name: Jacob [place]: No Confirmation of Primary Care Physician: Confirmed [...] Prescription Coverage: Yes Pharmacy Used: [facility] Medication Management: Independent Transportation/Shopping: Independent Transportation Mode: [...] recommendations communicated to primary service I used [employer] secure messaging to message Dr. Finch on 03/01/23 at 12:35 to notify that geriatrics consult note has been completed and to page or call my personal cell with any questions. [id number] Note* Care Coordination - Laura Jackson RN - 03/01/2023 10:14 AM EDT Care Managment Initial Assessment Date: 03/01/2023 Patient Name: Radha Sandoval : 1945 Patient Information Source of Information: Patient Cognition/Language: WFL - Within Functional Limits Permission given to speak with patient patient relations representative/caregiver as indicated: Yes Confirmation of Payer with patient/family: Yes Payer Name: [employer] [place]: No Confirmation of Primary Care Physician: Confirmed [...] Prescription Coverage: Yes Pharmacy Used: [facility] Medication Management: Independent Transportation/Shopping: Independent Transportation Mode: [...] in SNF but would be able to [facility]. [facility] liaison following, [facility] to assist and follow as needed. Laura Jackson RN [facility] Isgjjr32-95-7533 Consult note* Michelle Valle RN - 03/01/2023 9:33 AM EDT Associated Order(s): IP CONSULT TO OPERATIONS ACCOUNTANT This patient is not a new diabetic or new to insulin therapy and therefore does not meet our current criteria for the inpatient diabetes education service. The clinical bedside RN should provide any necessary diabetes education using the Diabetes SurvivalSkills Booklet available on the unit. Please consider a dietary consult if appropriate and if not already ordered. Contact [facility] to [facility] pharmacist for assistance if a new glucometer or any associated supplies are needed. Thank you. Elder MUÑOZ,BSN,[facility] HospitalQujgaf25-21-7532 Consult note* Jelly Paz, ELSA - LIQUOR RUNNER - 03/01/2023 8:03 AM EDTAssociated Order(s): IP CONSULT TO ENDOCRINOLOGY Department of Internal Medicine Division of Endocrinology, Diabetes, & Metabolism Endocrinology Note Patient Name: Radha Sandoval : 1945 AGE: 77 y.o. Room/Bed: [facility] A Admission Date: 02/28/2023 Visit Date: 03/01/2023 Reason for Endocrine Consult: DM-Uncontrolled Provider/Team Requesting Consult: Dr. Finch PCP: Shiv Lopez MD Outpt Glass Wool Blanket Machine Feeder: No ASSESSMENT: Type II diabetes with hyperglycemia, with extermination supervisor insulin use Postoperative hypothyroidism PLAN: Humalog 6 [...] diagnosis. She has been having diarrhea in 5037-1272, smt severe Glimepiride- started in 2015 Trulicity [...] CHOLHDLRATIO 4 02/16/2021 No results found for: [id number] Lab Results Component Value Date TSH 0.03 [...] 12/07/2022 Performed by Avery Marshall DO at [facility] ENDOSCOPY EYE SURGERY Bilateral early 90's [...] state/prognosis on the date of this note. [facility] HospitalMbraqz10-89-3201 NoteProblem: Pain - Adult Goal: Verbalizes/displays adequate comfort level or baseline comfort level Outcome: Progressing Problem: Safety - Adult Goal: Free from fall injury Out[facility]: [facility] Plan of care note* Care Plan - Anaya Carr RN - 02/28/2023 6:10 PM EDT Problem: Pain - Adult Goal: Verbalizes/displays adequate comfort level or baseline comfort level Outcome: Progressing Problem: Safety - Adult Goal: Free from fall injury Outcome: Progressing [facility] HospitalMjuslu85-94-7884 History and physical note* Gabrielle Finch MD [...] 12/07/2022 Performed by Avery Marshall DO at [facility] ENDOSCOPY EYE SURGERY Bilateral early ' [...] None Comment: W/ UNTIL HIS ADMITTANCE TO PRISON Other Topics Concern Not on file Social [...] tablet 0 ergocalciferol (Vitamin D-2) 1.25 MG (69238 UT) capsule Take 1 capsule (1.25 mg) [...] Information Primary Emergency Contact: Angel Roger Address: [address] [place] Relation: Child Code [...] to the patient's PCP. Thank you. T [facility] HospitalNooofr76-79-6190 NoteAttending History and Physical Admit Date: 02/28/2023 [...] 12/07/2022 Performed by Avery Marshall DO at [facility] ENDOSCOPY EYE SURGERY Bilateral early 90's [...] None Comment: W/ UNTIL HIS ADMITTANCE TO PRISON Other Topics Concern Not on file Social [...] tablet 0 ergocalciferol (Vitamin D-2) 1.25 MG (63280 UT) capsule Take 1 capsule (1.25 mg) [...] (150 mcg) by m (more content not included)...[facility] [id number] History and physical note* Gabrielle Finch MD [...] 12/07/2022 Performed by Avery Marshall DO at [facility] ENDOSCOPY EYE SURGERY Bilateral early ' [...] None Comment: W/ UNTIL HIS ADMITTANCE TO PRISON Other Topics Concern Not on file Social [...] tablet 0 ergocalciferol (Vitamin D-2) 1.25 MG (35231 UT) capsule Take 1 capsule (1.25 mg) [...] Information Primary Emergency Contact: Angel Roger Address: [address] [place] Relation: Child Code status: Prior [...] patient's PCP. Thank you. documented in this [facility]09-12-2023 Emergency department Note* Tasneem Whaley MD - 02/28/2023 11:28 AM EDT [facility] 1E MED SURG EMERGENCY DEPARTMENT ENCOUNTER [...] 12/07/2022 Performed by Avery Marshall DO at [facility] ENDOSCOPY EYE SURGERY Bilateral early LUNG [...] shoulder pain ergocalciferol (Vitamin D-2) 1.25 MG (04348 UT) capsule Take 1 capsule (1.25 mg) [...] None Comment: W/ UNTIL HIS ADMITTANCE TO PRISON Social Determinants of Health Financial Resource Strain: [...] min Stress: No Stress Concern Present (02/28/2023) [employer] of Occupational Health - Occupational Stress Questionnaire [...] and DIFFERENTIAL DIAGNOSIS/MDM: Vitals: Vitals: 03/01/23 0834 03/01/2383303/01/2383703/01/232030 BP: 138/57 (!) 159/54 BP Location: Right [...] 40 mg (40 mg SubCUTAneous Given 03/01/23 09) PARoxetine (Paxil) tablet 20 mg (has no [...] LING (acute kidney injury) (CMS/HCC) ([facility]): complicated acute illness or injury [...] [BJ] Tasneem Whaley MD Diagnoses as of 03/02/2324 Pyelonephritis LING (acute kidney injury) (CMS/[facility]) ([facility]) CONSULTS: IP CONSULT TO ENDOCRINOLOGY IP CONSULT TO GERIATRICS IP CONSULT TO OPERATIONS ACCOUNTANT PHARMACY TO CONSULT INSOMNIA PROCEDURES: Unless otherwise noted below, none Procedures FINAL IMPRESSION 1. LING (acute kidney injury) (CMS/HCC) ([facility]) 2. Pyelonephritis 3. Polypharmacy 4. Insomnia, unspecified type 5. Pressure ulcer of right buttock, stage 3 ([facility]) DISPOSITION/PLAN DISPOSITION Admit 02/28/2023 03:42:32 PM PATIENT REFERRED TO: [facility] Geriatrics [address] [facility] [address] DISCHARGE MEDICATIONS: Current Discharge Medication List @[facility]([id number]:LAST:1)@ (Please note: Portions of this note were completed with a voice recognition program. Efforts were made to edit the dictations but occasionally words and phrases are mis-transcribed.) Form [id number] Tasneem Whaley MD (electronically signed) Emergency Medicine Provider Tasneem Whaley MD 03/02/2324 * Farrah Londono RN - 02/28/2023 11:28 AM EDT Pt presents for admission per her PCP. Was sent to get kidneys evaluated per pt. Pt endorses lower back pain and burning and pain with urination. Was recently admitted. documented in this encounterSUK HealthcareUxukfm78-53-2057 Emergency department Triage note* Farrah Londono RN - 02/28/2023 11:28 AM EDT Pt presents for admission per her PCP. Was sent to get kidneys evaluated per pt. Pt endorses lower back pain and burning and pain with urination. Was recently admitted. [facility] HospitalAezhej57-88-1307 Physician Emergency department Note* Tasneem Whaley MD - 02/28/2023 11:28 AM EDT [facility] 1E MED SURG EMERGENCY DEPARTMENT ENCOUNTER [...] 12/07/2022 Performed by Avery Marshall DO at [facility] ENDOSCOPY EYE SURGERY Bilateral early 90' [...] shoulder pain ergocalciferol (Vitamin D-2) 1.25 MG (26815 UT) capsule Take 1 capsule (1.25 mg) [...] None Comment: W/ UNTIL HIS ADMITTANCE TO PRISON Social Determinants of Health Financial Resource Strain: [...] min Stress: No Stress Concern Present (02/28/2023) [employer] Occupational Health - Occupational Stress Questionnaire [...] Problems Addressed: LING (acute kidney injury) (CMS/HCC) (HCC): complicated acute illness or injury Pyelonephritis: complicated [...] [BJ] Tasneem Whaley MD Diagnoses as of 03/02/2324 Pyelonephritis LING (acute kidney injury) ([facility]) ([facility]) CONSULTS: IP CONSULT TO ENDOCRINOLOGY IP CONSULT TO GERIATRICS IP CONSULT TO OPERATIONS ACCOUNTANT PHARMACY TO CONSULT INSOMNIA PROCEDURES: Unless otherwise noted below, none Procedures FINAL IMPRESSION 1. LING (acute kidney injury) (CMS/HCC) ([facility]) 2. Pyelonephritis 3. Polypharmacy 4. Insomnia, unspecified type 5. Pressure ulcer of right buttock, stage 3 ([facility]) DISPOSITION/PLAN DISPOSITION Admit 02/28/2023 03:42:32 PM PATIENT REFERRED TO: [facility] Geriatrics [address] [facility] [address] DISCHARGE MEDICATIONS: Current Discharge Medication List @[facility]([id number]:LAST:1)@ (Please note: Portions of this note were completed with a voice recognition program. Efforts were made to edit the dictations but occasionally words and phrases are mis-transcribed.) Form [id number] Tasneem Whaley MD (electronically signed) Emergency Medicine Provider Tasneem Whaley MD 03/02/2324 [facility] HospitalCswjjg64-12-6473 Telephone encounter Note* Telephone Encounter - ELSA Arriaza CNP - 02/28/2023 8:30 AM EDT Noted. Patient already notified. See previous TE if needed. [facility] HospitalYjqhpt99-05-7653 Miscellaneous Notes* Telephone Encounter - ELSA Arriaza CNP - 02/28/2023 8:30 AM EDT Noted. Patient already notified. See previous TE if needed. * Telephone Encounter - Imelda Mann RN - 02/28/2023 7:15 AM EDT S: Christine from [facility] [phone] spoke with [facility] nurse regarding critical lab results B: Glucose [...] results Protocols used: PCP Call - No Bociqx-VDRMT-YT documented in this encounterSUK HealthcareDpznmu95-45-3028 Telephone encounter Note* Telephone Encounter - Imelda Mann RN - 02/28/2023 7:15 AM EDT S: Christine from [facility] lab [phone] spoke with [facility] nurse regarding critical lab results B: Glucose [...] results Protocols used: PCP Call - No Fyblgi-NSHHR-QJ [facility] HospitalQgpabi92-95-3819 Evaluation + Plan note* Assessment & Plan Note - ELSA Arriaza CNP - 02/27/2023 5:18 PM EDTAssociated Problem(s): Diarrhea No fever or chills, abdomen soft. Unknown etiology. Will check CBC and CMP. Consider stool culture if symptoms continue [facility] HospitalLnucho51-71-0961 Miscellaneous Notes* Assessment & Plan Note - ELSA Arriaza CNP - 02/27/2023 5:18 PM EDTAssociated Problem(s): Diarrhea No fever or chills, abdomen soft. Unknown etiology. Will check CBC and CMP. Consider stool culture if symptoms continue * Assessment & Plan Note - ELSA Arriaza CNP - 02/27/2023 5:17 PM EDTAssociated Problem(s): Chronic renal insufficiency, stage III (moderate) ([facility]) We will check CMP today * Assessment [...] infection we will treat documented in this [facility]09-11-2023 Evaluation + Plan note* Assessment & Plan Note - ELSA Arriaza CNP - 02/27/2023 5:17 PM EDTAssociated Problem(s): Chronic renal insufficiency, stage III (moderate) (HCC) We will check CMP today [place] [id number] Evaluation + Plan note* Assessment & Plan Note - ELSA Arriaza CNP - 02/27/2023 5:17 PM EDTAssociated Problem(s): Acute cystitis with hematuria UA positive nitrites and leuks moderate blood, will start antibiotic therapy sent for culture [place] [id number] Evaluation + Plan note* Assessment & Plan Note - ELSA Arriaza CNP - 02/27/2023 5:17 PM EDTAssociated Problem(s): Hypertension Controlled. Continue amlodipine 10 mg daily and lisinopril 40 mg daily [address]Jmmxvc97-92-3071 Evaluation + Plan note* Assessment & Plan Note - ELSA Arriaza CNP - 02/27/2023 5:16 PM EDTAssociated Problem(s): Hypothyroidism Will check TSH today due to recent fatigue [facility] HospitalNzdchg55-59-2981 Evaluation + Plan note* Assessment & Plan Note - ELSA Arriaza CNP - 02/27/2023 5:15 PM EDTAssociated Problem(s): Wound of right buttock Patient has not followed up with wound center upon visualization today wound unchanged, advised to keep area as clean as possible with frequent changes of incontinence pads [place] [id number] Evaluation + Plan note* Assessment & Plan Note - ELSA Arriaza CNP - 02/27/2023 5:14 PM EDTAssociated Problem(s): 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 Patient having difficulties with compliance. Continue insulin regimen. Possible increased glucose due to urinary tract infection we will treat [facility] HospitalYqdido75-68-9250 History of Present illness Narrative* Magda Lomas [...] her blood sugar today, noted In office smewa-dh-aecn testing 494. Urination Increased frequency, dysuria intermittently. [...] out soon. Has Maximino (son) work in [employer]. He may be able to help her [...] Lopez MD ergocalciferol (Vitamin D-2) 1.25 MG (60528 UT) capsule Take 1 capsule (1.25 mg) [...] morning. 12/08/22 Yes ELSA Arriaza CNP potassium chloride CR (K-Tab) 20 MEQ ER tablet Take 20 mEq by mouth daily. Do not crush, chew, or split. Yes Historical Provider, pramipexole (Mirapex) 0.125 MG tablet Take 2 tablets (0.25 mg) by mouth Nightly. 01/13/23 03/14/23 Yes ELSA Arriaza CNP rosuvastatin (Crestor) 10 MG tablet Take 1 tablet (10 mg) by mouth daily. 12/08/22 Yes Katia Bridenthal, PUBLIC ADDRESS TECHNICIAN - LIQUOR RUNNER hydrOXYzine HCl (Atarax) 25 MG tablet Take 1 tablet (25 mg) by mouth every 8 hours as needed for anxiety. 12/08/22 02/07/23 Katia Gregenthal, PUBLIC ADDRESS TECHNICIAN - LIQUOR RUNNER zolpidem (Ambien) 10 MG tablet Take 1 tablet (10 mg) by mouth Nightly as needed for sleep. Do not start before December 22, 2022. 12/22/22 02/07/23 Katia Gregenthal, PUBLIC ADDRESS TECHNICIAN - LIQUOR RUNNER insulin aspart (NovoLOG FLEXPEN) 100 UNIT/ML pen [...] CNP 02/27/2023 5:19 PM documented in this encounterSUK HealthcareZocjxg09-43-6808 Evaluation note* Diagnosis Diabetes mellitus due to [...] Diarrhea, unspecified type documented in this encounter [facility] HospitalAzerdb76-86-4367 Telephone encounter Note* Telephone Encounter - Nan Bush RN - 02/23/2023 12:49 PM EDT S: Patient spoke with [facility] nurse regarding High Blood Sugar number possible [...] seen Protocols used: Diabetes - High Blood Dnzop-YAFQO-RS [facility] HospitalLxlctx43-83-6643 Miscellaneous Notes* Telephone Encounter - Nan Bush RN - 02/23/2023 12:49 PM EDT S: Patient spoke with [facility] nurse regarding High Blood Sugar number possible [...] seen Protocols used: Diabetes - High Blood Vuznm-WSNEP-XF documented in this [facility]-30-2023 Hospital Discharge instructions* Patient Instructions* Tejal Henry RN - 02/15/2023 12:45 PM EDT Return in [address] Magallanes If you have any questions or concerns, please call our wound center at [phone] or [phone]. Offloading Try to avoid pressure and sheering [...] to help improve healing. documented in this [facility]08-30-2023 [facility] Visit - New Patient Progress Note CHIEF [...] 12/07/2022 Performed by Avery Marshall DO at [facility] ENDOSCOPY EYE SURGERY Bilateral early 90' [...] Rfl: 0 ergocalciferol (Vitamin D-2) 1.25 MG (48756 UT) capsule, Take 1 capsule (1.25 mg) [...] None Comment: W/ UNTIL HIS ADMITTANCE TO PRISON Other Topics Concern Not on file Social [...] Name Age of Onset Mental illness Mother GHANSHYAMRENEE COLEY Depression Mother GHANSHYAMRENEE COLEY Heart disease Father LATHA COLEY High Blood Pressure Father LATHA (more content not included)...[facility]08-22-2023 Evaluation + Plan note* Assessment & Plan Note - ELSA Arriaza CNP - 02/07/2023 12:51 PM EDTAssociated Problem(s): Chronic left shoulder pain Chronic. Refill mobic. [facility] HospitalXloueh69-20-8070 Evaluation + Plan note* Assessment & Plan Note - ELSA Arriaza CNP - 02/07/2023 12:51 PM EDTAssociated Problem(s): Wound of right buttock Avoid pressure to area, avoid friction, keep area as dry as possible. Refer to wound clinic. [facility] HospitalVqvdcv73-55-9391 Miscellaneous Notes* Assessment & Plan Note - ELSA Arriaza CNP - 02/07/2023 12:51 PM EDTAssociated Problem(s): Chronic left shoulder pain Chronic. Refill mobic. * Assessment & Plan Note - ELSA Arriaza CNP - 02/07/2023 12:51 PM EDTAssociated Problem(s): Wound of right buttock Avoid pressure to area, avoid friction, keep area as dry as possible. Refer to wound clinic. documented in this encounterSUK HealthcareFhmrpc64-26-6053 History of Present illness Narrative* ELSA Arriaza [...] possible. Refer to wound clinic. Orders: - [facility] Wound Care/[facility] 2. Chronic [...] Arriaza CNP ergocalciferol (Vitamin D-2) 1.25 MG (19564 UT) capsule Take 1 capsule (1.25 mg) [...] of . PHARMACY VERIFIED WITH PATIENT-BRENDA RIVERA. documented in this encounterSUK HealthcareMriqxd89-26-7094 Telephone encounter Note* Telephone Encounter - Betty Gonzalez MA - 01/25/2023 3:01 PM EDT Patient notified. [facility] HospitalKvcmiq34-77-2807 Miscellaneous Notes* Telephone Encounter - Betty Gonzalez [...] EDT S: The patient is calling the [facility] About muscle spasms B: She has been [...] days Protocols used: Muscle Aches and Body Flgv-IDKMP-XC documented in this encounterSUK HealthcareSjxoqq55-44-7286 Telephone encounter Note* Telephone Encounter - Shiv Lopez MD - 01/25/2023 2:39 PM EDT If the muscle spasms got worse with the muscle relaxer stop the muscle relaxer, I am not sure what else we can do especially if they have been going on for years. We could try quinine. [facility] HospitalNvwhbt88-17-7789 Telephone encounter Note* Telephone Encounter - Colette Poole RN - 01/25/2023 1:23 PM EDT S: The patient is calling the [facility] About muscle spasms B: She has been [...] days Protocols used: Muscle Aches and Body Syol-OMLVF-DN [facility] HospitalKsiqmx05-91-9596 Telephone encounter Note* Telephone Encounter - ELSA Arriaza CNP - 01/13/2023 11:12 AM EDT Reviewed chart. Refill appropriate. RX sent. [facility] HospitalVtsgre07-66-6694 Miscellaneous Notes* Telephone Encounter - ELSA Arriaza [...] 12/08/22, vit D 07/18/2022 documented in this [facility]-28[facility]2023 Telephone encounter Note* Telephone Encounter - Mya Foster MA - 01/13/2023 8:52 AM EDT Prescription Request: Last medication check: 10/25/2022 Last physical exam: 04/26/2022 Last completed appointment: 12/13/22 Next scheduled appointment: 01/25/2023 Last date of refill on this medication: Mirapex 12/13/22, baclofen and synthroid 12/08/22, vit D 07/18/2022 [facility] HospitalQrqeel84-79-1783 Telephone encounter Note* Telephone Encounter - ELSA Arriaza CNP - 12/08/2022 5:20 PM EDT Reviewed chart. Refill appropriate. RX sent. [facility] HospitalVdaogq13-33-7442 Miscellaneous Notes* Telephone Encounter - ELSA Arriaza [...] 90 day 1 refill documented in this encounterSUK HealthcareVjpeef55-67-2084 Telephone encounter Note* Telephone Encounter - Syl Kumar MA - 12/08/2022 1:53 PM EDT Prescription Request: Last medication check: 10/25/22 Last physical exam: 04/26/22 Next scheduled appointment: 01/25/23 CSA on file (date): 02/02/22 Last urine drug screen: none Last date of refill on this medication Baclofen 10/04/22 30 tablets no refill Levothyroxine 10/04/22 30 day 1 refill Crestor 06/14/22 90 day 1 refill [facility] HospitalBkvobx74-38-4188 Plan of care note* Care Plan - [...] integrity is maintained or improved Outcome: Completed [facility] HospitalQltlvt75-94-0312 Miscellaneous Notes* Care Plan - Lambert Kaur [...] Please call the Main Endoscopy Dept at [phone] for questions. * Op Note - Avery Marshall DO - 12/07/2022 7:48 AM EDT [facility] Name: Radha Sandoval Procedure Date: 12/07/2022 7:48 AM Gender: Female Date of : 1945 Age: 77 Admit Type: Inpatient Note Status: Finalized Endoscopist: Avery Marshall DO, [id number] Procedure: Colonoscopy Indications: Hematochezia Findings: The perianal [...] immediate complications. Procedure Code(s): --- Professional --- 54742, Colonoscopy, flexible; with removal of tumor(s), polyp(s), or other lesion(s) by snare technique --- Technical --- 21845, Colonoscopy, flexible; with removal of tumor(s), polyp(s), [...] or abscess without bleeding CPT copyright 2021 [employer]. All rights reserved. The codes documented in this report are preliminary and upon senior accountant cpa review may be revised to meet current [...] Limits Permission given to speak with patient patient relations representative/caregiver as indicated: Yes Confirmation of Payer [...] Prescription Coverage: Yes Pharmacy Used: [facility] Medication Management: Independent Transportation/Shopping: Independent Transportation Mode: [...] needed. Laura Jackson RN documented in this [address]21-2023 Hospital Discharge instructions* Discharge Instr - Activity* Gabrielle Finch MD - 12/07/2022 1:48 PM EDT As tolerated * Discharge Instr - Diet* Gabrielle Finch MD - 12/07/2022 1:49 PM EDT Carb control diet documented in this [address]21-2023 Hospital course Narrative* Gabrielle Finch MD - 12/07/2022 1:30 PM EDT Seen and examined. Full note to follow documented in this [address]21-2023 Note* Care Coordination - Laura Jackson RN [...] Stay (Days): 2 GMLOS: No GMLOS Documented CertaliaVhtodw19-57-0550 Note* Care Coordination - Laura Jackson RN [...] Stay (Days): 2 GMLOS: No GMLOS Documented CertaliaNlgzwo36-05-7508 Note* Perioperative Nursing Note - Ashley Dickens RN - 12/07/2022 9:57 AM EDT POST ENDOSCOPY PROCEDURE TRANSFER REPORT Physician: Dr. Marshall Procedure completed: colonoscopy Specimens obtained: Yes Medications administered: See MAR Findings: see MD report Complications: none Please call the Main Endoscopy Dept at [phone] for questions. [facility]veuqz98-97-2978 Note* Perioperative Nursing Note - Ashley Dickens RN - 12/07/2022 9:57 AM EDT POST ENDOSCOPY PROCEDURE TRANSFER REPORT Physician: Dr. Marshall Procedure completed: colonoscopy Specimens obtained: Yes Medications administered: See MAR Findings: see MD report Complications: none Please call the Main Endoscopy Dept at [phone] for questions. [facility] HospitalGjxchs14-13-5658 History of Present illness Narrative* Edelmira Hanna - 12/07/2022 7:58 AM EDT Patient has been NPO/ CLRS x3 days without adequate nutrition. Patient referred to RD. * Lani Bolton RCP - 12/06/2022 5:38 PM EDT [facility] Respiratory Care Department Progress Note As [...] note were not included. Hospitalist Progress Note 12/06/[id number]: Please secure chat me for patient care issues. [phone]: Please secure chat [facility] Hospitalist for any issues. Subjective: Admit Date: 12/05/2022 PCP: Shiv Lopez MD Room#: B1-148/B1-148 A Interval History: She is weak. Still with bleeding. Not dizzy. She denies chest pain, sob, abdominal pain, nausea, vomiting, diarrhea, constipation, fevers, or chills. Awaiting colonoscopy. D/w pt Adult diet Clear Liquid NPO diet NPO except: Sips of Water with Meds @[id number]@ 24HR INTAKE/OUTPUT: Intake/Output Summary (Last 24 hours) [...] Information Primary Emergency Contact: Angel Roger Address: [address] Mobile Relation: Child GABRIELLE FINCH MD Division of Hospitalist Medicine [facility] PAGER: Epic chat documented in this [facility]06-21-2023 Note* Op Note - Avery Marshall DO - 12/07/2022 7:48 AM EDT [facility] Patient Name: Radha Sandoval Procedure Date: 12/07/2022 7:48 AM Gender: Female Date of : 1945 Age: 77 Admit Type: Inpatient Note Status: Finalized Endoscopist: Avery Marshall DO, [id number] Procedure: Colonoscopy Indications: Hematochezia Findings: The perianal [...] immediate complications. Procedure Code(s): --- Professional --- 24328, Colonoscopy, flexible; with removal of tumor(s), polyp(s), or other lesion(s) by snare technique --- Technical --- 01927, Colonoscopy, flexible; with removal of tumor(s), polyp(s), [...] or abscess without bleeding CPT copyright 2021 [employer]. All rights reserved. The codes documented in this report are preliminary and upon senior accountant cpa review may be revised to meet current compliance requirements. Attending Participation: I personally performed the entire procedure. Avery Marshall DO 12/07/2022 9:46:22 AM This report has been signed electronically. Number of Addenda: 0 Note Initiated On: 12/07/2022 7:48 AM [employer] Mobile Phone: 1(355) 990-711706-21-2023 Note* Op Note - Avery Marshall DO - 12/07/2022 7:48 AM EDT [facility] Patient Name: Radha Sandoval Procedure Date: 12/07/2022 7:48 AM Gender: Female Date of : 1945 Age: 77 Admit Type: Inpatient Note Status: Finalized Endoscopist: Avery Marshall DO, [id number] Procedure: Colonoscopy Indications: Hematochezia Findings: The perianal [...] immediate complications. Procedure Code(s): --- Professional --- 60366, Colonoscopy, flexible; with removal of tumor(s), polyp(s), or other lesion(s) by snare technique --- Technical --- 60552, Colonoscopy, flexible; with removal of tumor(s), polyp(s), [...] or abscess without bleeding CPT copyright 2021 [employer]. All rights reserved. The codes documented in this report are preliminary and upon senior accountant cpa review may be revised to meet current compliance requirements. Attending Participation: I personally performed the entire procedure. Avery Marshall DO 12/07/2022 9:46:22 AM This report has been signed electronically. Number of Addenda: 0 Note Initiated On: 12/07/2022 7:48 AM [employer] Mobile Phone: [phone] 837-863406-20-2023 Note* Care Coordination - Laura Jackson RN - 12/06/2022 10:36 AM EDT Care Managment Initial Assessment Date: 12/06/2022 Patient Name: Radha Sandoval : 1945 Patient Information Source of Information: Patient Cognition/Language: WFL - Within Functional Limits Permission given to speak with patient patient relations representative/caregiver as indicated: Yes Confirmation of Payer [...] Prescription Coverage: Yes Pharmacy Used: [facility] Medication Management: Independent Transportation/Shopping: Independent Transportation Mode: [...] and follow as needed. Laura Jackson RN [employer] Klnydc98-62-5663 Note* Care Coordination - Laura Jackson RN - 12/06/2022 10:36 AM EDT Care Managment Initial Assessment Date: 12/06/2022 Patient Name: Radha Sandoval : 1945 Patient Information Source of Information: Patient Cognition/Language: WFL - Within Functional Limits Permission given to speak with patient patient relations representative/caregiver as indicated: Yes Confirmation of Payer with patient/family: Yes Payer Name: [employer] [place]: No Confirmation of Primary Care Physician: Confirmed [...] Prescription Coverage: Yes Pharmacy Used: [facility] Medication Management: Independent Transportation/Shopping: Independent Transportation Mode: [...] and follow as needed. Laura Jackson RN [facility]06-20-2023 Consult note* Malcolm Rodriguez MD - [...] tablet (10 mg) by mouth daily. 10/04/22 Katia ELSA Granados CNP ergocalciferol (Vitamin D-2) 1.25 MG (14280 UT) capsule Take 1 capsule (1.25 mg) by mouth 1 (one) time per week. 07/18/22 KatiaELSA Guzman CNP Glucose Blood (Blood Glucose Test) strip [...] or sweats. Normal appetite and weight. No RODRIGUZE, visual disturbance, eye pain, jaundice, sore throat [...] ANGIOGRAM W AND/OR WO IV CONTRAST OrderingProvider: MACK AMY Reason For Exam: GI bleed, lower [...] the patient/guardian/responsible accompanying adult who is agreeable. [employer] Mobile Phone: [phone]) 599-156106-20-2023 Consult note* Malcolm Rodriguez MD - 12/06/2022 [...] Arriaza CNP ergocalciferol (Vitamin D-2) 1.25 MG (40386 UT) capsule Take 1 capsule (1.25 mg) [...] 12/05/2022 Patient Name: RADHA SANDOVAL : 1945 [facility]#: [id number] ExamDate/Time: 12/05/2022 15:39 Procedure: CT ABDOMEN PELVIS ANGIOGRAM W AND/OR WO IV CONTRAST OrderingProvider: MACK AMY Reason For Exam: GI bleed, lower [...] adult who is agreeable. documented in this [facility]-19-2023 Emergency department Note* Abby Kahn RN - 12/05/2022 8:30 PM EDT Provided pt with water and nomi Kahn RN 12/05/222200 [facility]zhis65-61-2871 Emergency department Note* Abby Kahn RN - 12/05/2022 8:30 PM EDT Provided pt with water and nomi Kahn RN 12/05/222200 * Abby Kahn RN - 12/05/2022 6:[address] Velarde notified pt has filled x 3 bedpan with bloody stools and clots Abby Kahn RN 12/05/221811 * Abby Kahn RN - 12/05/2022 5:10 PM EDT Ashley (ANASTASIA) made aware that pt has had 2 large bloody BM's at this point Abby Kahn RN 12/05/22 4753 * Abby Kahn RN - 12/05/2022 4:58 PM EDT Pt had large bloody BM Abby Kahn RN 12/05/22 1658 * Abby Kahn RN - 12/05/2022 2:[address] stated they were unable to use US IV that was placed in R AC. SEAT TRIMMER called to place a new IV Abby Kahn RN 12/05/22 1403 * ANASTASIA Molina - 12/05/2022 10:43 AM EDT [facility] ED eMERGENCY dEPARTMENT eNCOUnter Pt Name: [...] History: Procedure Laterality Date ABDOMINAL SURGERY mid 's APPENDECTOMY CHOLECYSTECTOMY COLONOSCOPY 06/19/2008 EYE SURGERY early [...] mouth daily. ERGOCALCIFEROL (VITAMIN D-2) 1.25 MG (94433 UT) CAPSULE Take 1 capsule (1.25 mg) [...] None Comment: W/ UNTIL HIS ADMITTANCE TO PRISON Social Determinants of Health Financial Resource Strain: [...] 215 (*) Narrative: Performed by: Rogelio Montero [facility], [address] [place], [place] [id number] CLIA ID: [id number] HEPATIC FUNCTION PANEL - Normal BILIRUBIN, TOTAL [...] MEDICATIONS: New Prescriptions No medications on file @[facility](0059,[id number]:LAST:1)@ (Please note: Portions of this note were completed with a voice recognition program. Efforts were made to edit thedictations but occasionally words and phrases are mis-transcribed.) Form v2016.J.5-cn ANASTASIA MOLINA (electronically signed) Emergency Medicine Provider ANASTASIA Molina 12/05/22 1748 * Anusha Velarde MD - 12/05/2022 10:43 AM EDT Emergency Department Encounter [facility] ED Patient: Radha Sandoval : 1945 [...] Huerta MD 12/05/22 1638 Anusha Velarde MD 12/05/22 2362 * Maday Borja RN - 12/05/2022 10:43 AM EDT Pt reports bright red blood with blood clots in her brief this AM, denies use of blood thinners or hx of GI bleed. documented in this [facility]20[facility] Nurse Note* Sis Archibald RN - 12/05/2022 8:[address] Durbin requesting 18g U/S IV placed d/t GIB. No suitable options for an 18g PIV to be placed at this time. Pt also refusing for Left arm to be used. Dr. Hammer notified. [facility]Pmbmur28-46-2777 Nurse Note* Sis Archibald RN - 12/05/2022 8:[address] Durbin requesting 18g U/S IV placed d/t GIB. No suitable options for an 18g PIV to be placed at this time. Pt also refusing for Left arm to be used. Dr. Hammer notified. documented in this [facility]2023 Emergency department Note* Abby Kahn RN - 12/05/2022 6:[address] Velarde notified pt has filled x 3 bedpan with bloody stools and clots Abby Kahn RN 12/05/22 1812 [facility]Jmyvgl12-76-1435 Emergency department Note* Abby Kahn RN - 12/05/2022 5:10 PM EDT Ashley (ANASTASIA) made aware that pt has had 2 large bloody BM's at this point Abby Kahn RN 12/05/22 1733 [facility] HospitalJkaebo36-34-4561 History and physical note* Bertram Durbin MD [...] None Comment: W/ UNTIL HIS ADMITTANCE TO PRISON Other Topics Concern Not on file Social [...] tablet 0 ergocalciferol (Vitamin D-2) 1.25 MG (81753 UT) capsule Take 1 capsule (1.25 mg) [...] Extended Emergency Contact Information Primary Emergency Contact: Nicola Rogerhalinamario Address: [address] Mobile Relation: Child Code status: No [...] H&P to the patient's PCP. Thank you. [employer] Mobile Phone: [phone] History and physical note* Bertram Durbin MD [...] None Comment: W/ UNTIL HIS ADMITTANCE TO PRISON Other Topics Concern Not on file Social [...] illness Mother GHANSHYAM VIANCA Depression Mother GHANSHYAM VIANCA Heart disease [...] tablet 0 ergocalciferol (Vitamin D-2) 1.25 MG (03906 UT) capsule Take 1 capsule (1.25 mg) [...] Information Primary Emergency Contact: Angel Roger Address: [address] Mobile Relation: Child Code status: No [...] patient's PCP. Thank you. documented in this [facility]19[facility] Emergency department Note* Abby Kahn RN - 12/05/2022 4:58 PM EDT Pt had large bloody BM Abby Kahn RN 12/05/22 7573 [facility] HospitalOxgfcv03-78-5770 Emergency department Note* Abby Kahn RN - 12/05/2022 2:[address] stated they were unable to use US IV that was placed in R AC. SEAT TRIMMER called to place a new IV Abby Kahn RN 12/05/22 1403 [facility] HospitalPshgbn44-43-0170 Emergency department Triage note* Maday Borja RN - 12/05/2022 10:43 AM EDT Pt reports bright red blood with blood clots in her brief this AM, denies use of blood thinners or hx of GI bleed. [facility] HospitalFkjcge45-82-4837 Physician Emergency department Note* ANASTASIA Molina - 12/05/2022 10:43 AM EDT [facility] ED eMERGENCY dEPARTMENT eNCOUnter Pt Name: Radha Sandoval Birthdate 1945 Date of evaluation: 12/05/2022 Provider: ANASTASIA MOLINA CHIEF COMPLAINT Chief Complaint Patient presents with Black or Bloody Stool HISTORY OF PRESENT ILLNESS (Location/Symptom, Timing/Onset,Context/Setting, Quality, Duration, Modifying Factors, Severity) Note limiting factors. HPI Radha Sandvoal is a 77 y.o. female who presents [...] mouth daily. ERGOCALCIFEROL (VITAMIN D-2) 1.25 MG (64351 UT) CAPSULE Take 1 capsule (1.25 mg) [...] None Comment: W/ UNTIL HIS ADMITTANCE TO PRISON Social Determinants of Health Financial Resource Strain: [...] 215 (*) Narrative: Performed by: [facility], [address] [place] [address] CLIA ID: [id number] HEPATIC FUNCTION PANEL - Normal BILIRUBIN, TOTAL [...] 75 mL (75 mL IntraVENous Given 12/05/22 0510) Medical Decision Making Problems Addressed: Acute lower [...] MEDICATIONS: New Prescriptions No medications on file @[facility]([id number]:LAST:1)@ (Please note: Portions of this note were completed with a voice recognition program. Efforts were made to edit thedictations but occasionally words and phrases are mis-transcribed.) Form v2016.J.5-cn ANASTASIA MOLINA (electronically signed) Emergency Medicine Provider ANASTASIA Molina 12/05/22 1748 [facility] HospitalHfunoa38-48-6495 Physician Emergency department Note* Anusha Velarde MD - 12/05/2022 10:43 AM EDT Emergency Department Encounter [facility] ED Patient: Radha Sandoval : 1945 [...] Given 12/05/22 1538) ED Course as of 12/05/22 1852 Mon Dec 05, 2022 1816 I assessed the patient [...] MD 12/05/22 1638 Anusha Velarde MD 12/05/221851 [employer] Phone: [phone] Telephone encounter Note* Telephone Encounter - ELSA Arriaza CNP - 12/05/2022 9:44 AM EDT Noted. Agree with disposition. CertaliaTrwxod54-57-9063 Miscellaneous Notes* Telephone Encounter - ELSA Arriaza [...] drive her, states she will go to [place] ED. No further needs at this time. Patient instructed to call back with new or worsening symptoms. Advised to call 911 if she worsens or feels like she might pass out. Patient verbalizes understanding. Reason for Disposition SEVERE rectal bleeding (large blood clots; constant or on and off bleeding) Protocols used: Rectal Miofrvyg-HRKDW-QL documented in this encounterSVanessa Ville [address]Nbgryq93-06-4994 Telephone encounter Note* Telephone Encounter - Sruthi [...] drive her, states she will go to [place] ED. No further needs at this time. Patient instructed to call back with new or worsening symptoms. Advised to call 911 if she worsens or feels like she might pass out. Patient verbalizes understanding. Reason for Disposition SEVERE rectal bleeding (large blood clots; constant or on and off bleeding) Protocols used: Rectal Iflqtssl-QRSIW-OS [facility] HospitalBdjsrb90-26-6955 Telephone encounter Note* Telephone Encounter - Mya Foster MA - 10/05/2022 3:55 PM EDT ----- Message from ELSA Arriaza CNP sent at 10/05/2022 3:52 PM EDT ----- Hemoglobin A1c 9- recommend increasing novolog dose by 2 units- (from 14 to 16), send glucose readings to office in 1 week. Notified, can you please update sig? Thanks! [facility] HospitalQtblbe42-01-7553 Miscellaneous Notes* Telephone Encounter - Mya Foster MA - 10/05/2022 3:55 PM EDT ----- Message from ELSA Arriaza CNP sent at 10/05/2022 3:52 PM EDT ----- Hemoglobin A1c 9- recommend increasing novolog dose by 2 units- (from 14 to 16), send glucose readings to office in 1 week. Notified, can you please update sig? Thanks! documented in this [facility]02-24-2023 Telephone encounter Note* Telephone Encounter - Stefani [...] prior to picking up the medication: Yes [facility]02-24-2023 Miscellaneous Notes* Telephone Encounter - Stefani Abraham [...] up the medication: Yes documented in this encounterSumMagruder HospitalOwuqud11-06-5242 Telephone encounter Note* Telephone Encounter - Shiv Lopez MD - 07/26/2022 8:29 AM EST Rx sent [facility] HospitalAvulgt40-35-1639 Miscellaneous Notes* Telephone Encounter - Shiv Lopez [...] (see medication tab): 05/03/2022 documented in this [facility]-07-2023 Note* Addendum Note - Mya Foster MA - 07/26/2022 7:57 AM ESTAddended by: MYA FOSTER on: 07/26/2022 07:57 AM Modules accepted: Orders [facility] HospitalGyndqh26-36-0219 Note* Addendum Note - Mya Foster MA - 07/26/2022 7:57 AM ESTAddended by: MYA FOSTER on: 07/26/2022 07:57 AM Modules accepted: Orders [facility] HospitalUmrpxj58-26-7875 Telephone encounter Note* Telephone Encounter - Georgette [...] of last refill (see medication tab): 05/03/2022 [facility] HospitalZewjdj89-13-3030 Telephone encounter Note* Telephone Encounter - ELSA Arriaza CNP - 07/18/2022 9:56 AM EST Reviewed chart. Refill appropriate. RX sent. [facility] HospitalEfackk24-18-2221 Miscellaneous Notes* Telephone Encounter - ELSA Arriaza CNP - 07/18/2022 9:56 AM EST Reviewed chart. Refill appropriate. RX sent. * Telephone Encounter - Magda Lomas - 07/18/2022 9:39 AM EST Prescription Request: Last medication check: 06/30/22 Last physical exam: 04/26/22 Next scheduled appointment: 09/30/22 Last date of refill on this medication 06/14/22 documented in this encounterSUK HealthcareQplpzm68-21-4879 Telephone encounter Note* Telephone Encounter - Magda Lomas - 07/18/2022 9:39 AM EST Prescription Request: Last medication check: 06/30/22 Last physical exam: 04/26/22 Next scheduled appointment: 09/30/22 Last date of refill on this medication 06/14/22 [facility] HospitalZrptrb49-22-7776 Telephone encounter Note* Telephone Encounter - Ashley Haider MA - 07/13/2022 1:06 PM EST Attempted to call patient to help her schedule an appt - the patient has a recording that says she is not accepting calls [facility] HospitalFwxpcw33-36-0393 Miscellaneous Notes* Telephone Encounter - Ashley Haider [...] her 07/08 appt. Please advise. [facility] Name[facility] Physician Orthopedics Medication Refills need, if any: N/A Medication Name: N/A documented in this [facility] Srcppl05-47-1890 Telephone encounter Note* Telephone Encounter - Devendra Loera MD - 07/13/2022 11:10 AM EST Okay to reschedule [employer] Phone: [phone] 450-206501-23-2023 Telephone encounter Note* Telephone Encounter - ELSA Arriaza CNP - 07/11/2022 2:11 PM EST Reviewed chart. Refill appropriate. RX sent. [facility] Urywjh69-54-9431 Miscellaneous Notes* Telephone Encounter - ELSA Arriaza CNP - 07/11/2022 2:11 PM EST Reviewed chart. Refill appropriate. RX sent. * Telephone Encounter - Mya Foster MA - 07/11/2022 2:02 PM EST Prescription Request: Last medication check: 08/05/21 Last physical exam: 04/26/22 Next scheduled appointment: 09/29/2022 Last date of refill on this medication 02/28/2022 documented in this encounterSUK HealthcareNpxcyf48-43-1574 Telephone encounter Note* Telephone Encounter - Mya Foster MA - 07/11/2022 2:02 PM EST Prescription Request: Last medication check: 08/05/21 Last physical exam: 04/26/22 Next scheduled appointment: 09/29/2022 Last date of refill on this medication 02/28/2022 [facility] HospitalLsjlli42-38-9549 Telephone encounter Note* Telephone Encounter - Mya Foster MA - 07/11/2022 9:46 AM EST Notified. [facility] HospitalXbydzy36-46-0608 Miscellaneous Notes* Telephone Encounter - Mya Foster [...] to answer question Protocols used: Falls and Frgqrap-NLXUH-RF documented in this encounterSUK HealthcareYyfmsg93-32-7223 Telephone encounter Note* Telephone Encounter - Shiv Lopez MD - 07/08/2022 12:30 PM EST Rx sent for tramadol, she can take this with Tylenol, this is a one-time prescription and cannot berefilled because we are not chronic pain management physicians. [facility] HospitalRluveg57-28-6794 Miscellaneous Notes* Telephone Encounter - Shiv Lopez [...] to answer question Protocols used: Falls and Gmtwnrs-HEXVW-RB documented in this encounterSUK HealthcareFhhukt05-00-0629 Telephone encounter Note* Telephone Encounter - Christine [...] to answer question Protocols used: Falls and Uwvqqzn-VQEXM-WU [facility] HospitalBmzvva65-76-7577 Telephone encounter Note* Telephone Encounter - Katie Bernardo - 07/07/2022 5:48 PM EST Name of Caller: Radha Contact Reason for Appointment: Pt states that she would like to r/s her 07/08 appt. Please advise. Office Name: [facility] Physician Orthopedics Medication Refills need, if any: N/A Medication Name: N/A [facility] HospitalTwddsf18-02-8733 Evaluation + Plan note* Assessment & Plan Note - Shiv Lopez MD - 06/30/2022 12:54 PM ESTAssociated Problem(s): Hyperlipidemia with target LDL less than 70 Controlled, continue rosuvastatin 10 mg daily [facility] HospitalYfgfnk82-21-9269 Evaluation + Plan note* Assessment & Plan Note - Shiv Lopez MD - 06/30/2022 12:54 PM ESTAssociated Problem(s): Moderate episode of recurrent major depressive disorder (HCC) Stable, continue Paxil 20 mg daily [facility] HospitalVkskgf22-15-8489 Evaluation + Plan note* Assessment & Plan Note - Shiv Lopez MD - 06/30/2022 12:54 PM ESTAssociated Problem(s): Chronic right-sided low back pain with right-sided sciatica Referral to orthopedic surgeon [facility] HospitalKbmqua57-44-2624 Evaluation + Plan note* Assessment & Plan Note - Shiv Lopez MD - 06/30/2022 12:54 PM ESTAssociated Problem(s): Hypothyroidism Controlled, continue levothyroxine 150 mcg daily [facility] HospitalXkeklo94-06-5988 Miscellaneous Notes* Assessment & Plan Note - [...] current dose of Ambien documented in this [facility]01-12-2023 Evaluation + Plan note* Assessment & Plan Note - Shiv Lopez MD - 06/30/2022 12:53 PM EST Associated Problem(s): Vitamin D deficiency Stable, continue vitamin D 50,000 units weekly [facility] HospitalQtkukz75-12-3415 Evaluation + Plan note* Assessment & Plan Note - Shiv Lopez MD - 06/30/2022 12:53 PM ESTAssociated Problem(s): Uncontrolled type 2 diabetes mellitus with hyperglycemia (HCC) Uncontrolled, continue NovoLog 14 units before each meal. 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 [facility] HospitalToycsu81-37-5489 Evaluation + Plan note* Assessment & Plan Note - Shiv Lopez MD - 06/30/2022 12:52 PM ESTAssociated Problem(s): DDD (degenerative disc disease), lumbar This is a chronic issue we will send her to spine surgery for further evaluation. [address]Olvhia40-94-9256 Evaluation + Plan note* Assessment & Plan Note - Shiv Lopez MD - 06/30/2022 12:51 PM ESTAssociated Problem(s): Hypertension Blood pressure was initially elevated, recheck was normal, continue lisinopril 40 mg daily and amlodipine 10 mg daily [facility] HospitalMuablt10-34-3789 Evaluation + Plan note* Assessment & Plan Note - Shiv Lopez MD - 06/30/2022 12:51 PM ESTAssociated Problem(s): Restless legs syndrome (RLS) Stable on current dose of Mirapex 2 mg nightly [facility] HospitalKjvncw12-37-3844 Evaluation + Plan note* Assessment & Plan Note - Shiv Lopez MD - 06/30/2022 12:51 PM ESTAssociated Problem(s): Insomnia Stable on current dose of Ambien [facility] HospitalBhqyhb06-82-1129 History of Present illness Narrative* Syl Kumar MA - 06/30/2022 8:15 AM EST Patient verified by last name and date of . Patient wants a activities volunteer in the room during during the visit. no Electric Distribution Checker na * Shiv Lopez MD - 06/30/2022 [...] spine surgery for further evaluation. Orders: - [facility] Orthopedics Spine - [place] Cec[place] 11. Chronic right-sided low back pain with right-sided sciatica Assessment & Plan: Referral to orthopedic surgeon Orders: - [facility] Orthopedics Spine - [place] Follow up in about 3 months (around 09/28/2022). SUBJECTIVE/OBJECTIVE: LEONILA Elizabeth comes in today for 3-month follow-up on [...] MD 06/30/2022 12:55 PM documented in this [facility]* Diagnosis Localized edema Edema documented in this encounter [facility] Work Phone: Evaluation note* Diagnosis Dyspnea on exertion Other dyspnea and respiratory abnormality documented in this encounter [facility] Work Phone: Evaluation note* Diagnosis Acute lower GI bleeding- Primary Unspecified, hemorrhage of gastrointestinal tract Acute lower GI bleeding Unspecified, hemorrhage of gastrointestinal tract Rectal bleeding Hemorrhage of rectum and anus Gastrointestinal bleed Unspecified, hemorrhage of gastrointestinal tract [facility] Diagnosis Hyperlipidemia with target LDL less than 70 Other and unspecified hyperlipidemia Acquired hypothyroidism Unspecified hypothyroidism Chronic left shoulder pain Pain in joint, shoulder region documented in this encounter [facility]* Diagnosis Vitamin D deficiency Acquired hypothyroidism Unspecified hypothyroidism Chronic left shoulder pain Pain in joint, shoulder region Restless legs syndrome (RLS) [facility] Diagnosis Wound of right buttock, subsequent encounter- Primary Chronic left shoulder pain Pain in joint, shoulder region [facility] Diagnosis LING (acute kidney injury) ([facility]) ([facility])- Primary Pyelonephritis Unspecified pyelonephritis LING (acute kidney injury) ([facility]) ([facility]) Polypharmacy Issue of repeat prescriptions Insomnia, unspecified type Pressure ulcer of right buttock, stage 3 ([facility]) Declining functional status Weakness Other malaise and fatigue Insomnia Insomnia, unspecified Anxiety Anxiety state, unspecified Polypharmacy Issue of repeat prescriptions DNR (do not resuscitate) Other specified conditions influencing health status Complicated UTI (urinary tract infection) [facility] Diagnosis Onset Date Resolution Status Acquired lymphedema acute Debility acute Depression acute Diabetes mellitus acute Edema acute Hypothyroidism acute Insomnia acute Pain in left toe(s) acute Pain in right toe(s) acute Restless leg syndrome acute Rheumatoid arthritis acute Tinea unguium acute Type 2 diabetes mellitus with diabetic polyneuropathy acute Urinary tract infection acut e Hypertension chronic [facility] Work Phone: Evaluation note* Diagnosis Onset Date Resolution Status Acquired lymphedema acute Debility acute Depression acute Diabetes mellitus acute Edema acute Hypothyroidism acute Insomnia acute Restless leg syndrome acute Rheumatoid arthritis acute Type 2 diabetes mellitus with diabetic polyneuropathy acute Hypertension chronic Pain in left toe(s) resolved Pain in right toe(s) resolve d Tinea unguium resolved Urinary tract infection reso lved [facility] Work Phone: Evaluation noteNo assessment information available [facility] Work Phone: Evaluation note* Diagnosis Uncontrolled type 2 diabetes mellitus with hyperglycemia ([facility])- Primary Restless legs syndrome (RLS) Primary insomnia Persistent disorder of initiating or maintaining sleep Primary hypertension Unspecified essential hypertension Vitamin D deficiency Acquired hypothyroidism Unspecified hypothyroidism Moderate episode of recurrent major depressive disorder ([facility]) Hyperlipidemia with target LDL less than 70 Other and unspecified hyperlipidemia 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, with long-term current use of insulin, unspecified whether stage 3a or 3b CKD ([facility]) DDD (degenerative disc disease), lumbar Degeneration of lumbar or lumbosacral intervertebral disc Chronic right-sided low back pain with right-sided sciatica [facility] Diagnosis Trauma- Primary Injury, other and unspecified, unspecified site [facility] Diagnosis Trauma- Primary Injury, other and unspecified, unspecified site documented in this encounter [facility]* Diagnosis Vitamin D deficiency [facility] instructions Additional Instructions Discharge to [facility] 03/18/2023, intermediate, Part B therapies.[facility] Work Phone: Instructions* Attachments The following attachments cannot be sent through Care Everywhere. * Acute Cystitis Discharge Instructions (Bahamian) [facility] ([facility])* Consultation (Urgent) - Pending Review Specialty Diagnoses / Procedures Referred By Varun t Referred To Contact Wound Care Diagnoses Wound of right buttock, subsequent encounter Procedures [place] OFFICE/OUTPATIENT NEW HIGH MDM 60-74 MINUTES Katia Granados APRN - CNP [facility] [place] [address] [facility] [address] [place] [address] Referral ID Status Reason Start Date Expiration Date Visits Requested Visits Authorized [id number] Pending Review Specialty Services Required 02/07/2023 02/07/2024 1 1 [facility] Consultation (Routine) - Pending Review Specialty Diagnoses / Procedures Referred By Yancyac t Referred To Contact Orthopedic Surgery: Spine Surgery / Orthopedic Surgery Diagnoses DDD (degenerative disc disease), lumbar Chronic right-sided low back pain with right-sided sciatica Procedures [place] OFFICE/OUTPATIENT NEW HIGH MDM 60-74 MINUTES Shiv Lopez MD [address] [facility] [place] [address] [facility] [address] [facility] [address] [place] [address] Referral ID Status Reason Start Date Expiration Date Visits Requested Visits Authorized [id number] Pending Review Specialty Services Required 06/30/2022 12/27/2022 1 1 O [place] Counts include 234 beds at the [facility] for referral (narrative)No reason for referral information availableWVeterans Health Administration Work Phone: Summary Purpose Family History No Family History Records Found Relationship Condition Age at Onset Recorded Date/T amelia Not Specified Cardiac disease Unknown Malignant neoplasm Unknown Advance Directives No Advanced Directives Records FoundDocuments on File Type Date Recorded Patient Network Mgr Expl anation ACP-Advance Directive ACP-Power of Keymodule Assembly Supervisor Latest Code Status on File Code Status Date Activated Date Inactivated Comments Full Code 01/20/2019 3:56 AM 01/23/2019 7:06 PM Full Code 01/20/2019 3:56 AM 01/20/2019 3:56 AM Documents on File Type Date Recorded Patient Network Mgr Expl anation Advance Directives and Living Will Power of Keymodule Assembly Supervisor Documents on File Type Date Recorded Patient Network Mgr Expl anation ACP-Advance Directive ACP-Power of Keymodule Assembly Supervisor Latest Code Status on File Code Status [...] No March 06, 2023 4:25pm Power of Keymodule Assembly Supervisor No February 4:25pm Advance Directive Response Recorded Date/ Time Living Will No March 06, 2023 3:25pm Power of Keymodule Assembly Supervisor No February 3:25pm Documents on File Type Date Recorded Patient Network Mgr Expl anation DNR (Do Not Resuscitate) 03/06/2023 [...] sent through Care Everywhere. * Lacerations: Stitches (Bahamian) * Head Injury: Closed: General Info (Bahamian) * Cervical Strain (Bahamian) documented in this encounter Assessments Diagnosis Injury of head, initial encounter- Primary Laceration of scalp, initial encounter Strain of neck muscle, initial encounter Reason for Referral Status Reason Specialty Diagnoses / Procedures Referre d By Contact Referred To Contact Closed Cardiology Diagnoses Localized edema Procedures ECHO Complete 2D W Doppler W Color Shiv Lopez MD [address] [place] [address], [place] [address] Specialty Diagnoses / Procedures Referred By Contac t Referred To Contact Gabrielle Finch MD [address] [place] [address] Referral ID Status Reason Start Date Expiration Date Visits Re quested Visits Authorized [id number] Closed 1 1 Referral ID Status Reason Start Date Expiration Date Visits Re quested Visits Authorized [id number] Closed 1 1 Referral ID Status Reason Start Date Expiration Date Visits Re quested Visits Authorized [id number] Closed 1 1 Specialty Diagnoses / Procedures Referred By Contac t Referred To Contact Wound Care Diagnoses Pressure ulcer of right buttock, stage 3 ([facility]) Procedures [place] OFFICE/OUTPATIENT NEW HIGH MDM 60-74 MINUTES Rosalinda Burrows, PUBLIC ADDRESS TECHNICIAN - [employer] [address] [place] [address] Referral ID Status Reason Start Date Expiration Date Visits Requested Visits Authorized [id number] Pending Review Specialty Services Required 03/01/2023 02/29/2024 1 1 Specialty Diagnoses / Procedures Referred By Contac t Referred To Contact Geriatric Medicine Diagnoses Polypharmacy Insomnia, unspecified type Procedures [place] OFFICE/OUTPATIENT [facility] 60-74 MINUTES Adam Holt MD [address] [address] [facility] [address] [place] [address] Referral ID Status Reason Start Date Expiration Date Visits Requested Visits Authorized [id number] Pending Review Specialty Services Required 03/01/2023 02/29/2024 1 1 Chief Complaint and Reason for Visit Chief Complaint UTI/PRESSURE WOUND Reason for Visit Acquired lymphedema Debility Depression Diabetes mellitus Edema Hypothyroidism Insomnia Pain in left toe(s) Pain in right toe(s) Restless leg syndrome Rheumatoid arthritis Tinea unguium Type 2 diabetes mellitus with diabetic polyneuropathy Urinary tract infection Hypertension Chief Complaint UTI/PRESSURE WOUND PRISON LAB WORK PRISON LAB WORK Reason for Visit Acquired lymphedema Debility Depression Diabetes mellitus Edema Hypothyroidism Insomnia Restless leg syndrome Rheumatoid arthritis Type 2 diabetes mellitus with diabetic polyneuropathy Hypertension Pain in left toe(s) Pain in right toe(s) Tinea unguium Urinary tract infection Chief Complaint UTI/PRESSURE WOUND PRISON LAB WORK PRISON LAB WORK PRISON LABWORK Reason for Visit Acquired lymphedema Debility Depression Diabetes mellitus Edema Hypothyroidism Insomnia Restless leg syndrome Rheumatoid arthritis Type 2 diabetes mellitus with diabetic polyneuropathy Hypertension Pain in left toe(s) Pain in right toe(s) Tinea unguium Urinary tract infection Chief Complaint UTI/PRESSURE WOUND PRISON LAB WORK PRISON LAB WORK PRISON LABWORK PRISON LAB WORK Reason for Visit Acquired lymphedema Debility Depression Diabetes mellitus Edema Hypothyroidism Insomnia Restless leg syndrome Rheumatoid arthritis Type 2 diabetes mellitus with diabetic polyneuropathy Hypertension Pain in left toe(s) Pain in right toe(s) Tinea unguium Urinary tract infection Chief Complaint UTI/PRESSURE WOUND PRISON LAB WORK PRISON LAB WORK PRISON LABWORK PRISON LAB WORK LABWORK Reason for Visit Acquired lymphedema Debility Depression Diabetes mellitus Edema Hypothyroidism Insomnia Restless leg syndrome Rheumatoid arthritis Type 2 diabetes mellitus with diabetic polyneuropathy Hypertension Pain in left toe(s) Pain in right toe(s) Tinea unguium Urinary tract infection Chief Complaint UTI/PRESSURE WOUND PRISON LAB WORK PRISON LAB WORK PRISON LABWORK PRISON LAB WORK PRISON LAB WORK LABWORK Reason for Visit Acquired lymphedema Debility Depression Diabetes mellitus Edema Hypothyroidism Insomnia Restless leg syndrome Rheumatoid arthritis Type 2 diabetes mellitus with diabetic polyneuropathy Hypertension Pain in left toe(s) Pain in right toe(s) Tinea unguium Urinary tract infection Chief Complaint PRISON LABWORK PRISON LAB WORK PRISON LAB WORK LABWORK PRISON LAB WORK PRISON LAB WORK LABWORK PRISON LAB WORK LABWORK Chief Complaint PRISON LAB WOR K PRISON LAB WORK LABWORK PRISON LAB WORK PRISON LAB WORK LABWORK PRISON LAB WORK LABWORK LABWORK Chief Complaint PRISON LAB WOR K LABWORK PRISON LAB WORK PRISON LAB WORK LABWORK PRISON LAB WORK LABWORK LABWORK LABWORK Chief Complaint PRISON LAB WOR K LABWORK PRISON LAB WORK PRISON LAB WORK LABWORK PRISON LAB WORK LABWORK LABWORK LABWORK LABWORK Chief Complaint Admit Date PRISON LAB WORK May 29 5:00am PRISON LAB WORK June 13 6:35am PRISON LAB WORK June 27, 2024 5:00am PRISON LAB WORK July 11, 2024 5:00am LABWORK July 25, 2024 5 :00am B/L SHOULDER PAIN/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 o July 31, 2024 4:58pm LABWORK August 06, 2024 4:00pm LABWORK August 08, 2024 8:05am PRISON LAB WORK August 22, 2024 7: 10am Chief Complaint Admit Date PRISON LAB WORK May 29 5:00am PRISON LAB WORK June 13 6:35am PRISON LAB WORK June 27, 2024 5:00am PRISON LAB WORK July 11, 2024 5:00am LABWORK July 25, 2024 5 :00am B/L SHOULDER PAIN/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 o July 31, 2024 4:58pm LABWORK August 06, 2024 4:00pm LABWORK August 08, 2024 8:05am PRISON LAB WORK August 22, 2024 7: 10am PRISON LAB WORK September 05, 2024 8 :00am Chief Complaint Admit Date PRISON LAB WORK June 13 6:35am PRISON LAB WORK June 27, 2024 5:00am PRISON LAB WORK July 11, 2024 5:00am LABWORK July 25, 2024 5 :00am B/L SHOULDER PAIN/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 o July 31, 2024 4:58pm LABWORK August 06, 2024 4:00pm LABWORK August 08, 2024 8:05am PRISON LAB WORK August 22, 2024 7: 10am PRISON LAB WORK September 05, 2024 8 :00am PRISON LAB WORK October 03, 2024 4 :00am Chief Complaint Admit Date PRISON LAB WORK June 27, 2024 5:00am PRISON LAB WORK July 11, 2024 5:00am LABWORK July 25, 2024 5 :00am B/L SHOULDER PAIN/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 o July 31, 2024 4:58pm LABWORK August 06, 2024 4:00pm LABWORK August 08, 2024 8:05am PRISON LAB WORK August 22, 2024 7: 10am PRISON LAB WORK September 05, 2024 8 :00am LABWORK September 19, 2024 5:00 am PRISON LAB WORK September 23, 2024 8: 20am PRISON LAB WORK October 03, 2024 4 :00am Chief Complaint Admit Date LABWORK August 06, 2024 4:00pm LABWORK August 08, 2024 8:05am PRISON LAB WORK August 22, 2024 7: 10am PRISON LAB WORK September 05, 2024 8 :00am LABWORK September 19, 2024 5:00 am PRISON LAB WORK September 23, 2024 8: 20am PRISON LAB WORK October 03, 2024 4 :00am LABWORK October 17, 2024 5:00am LABOWRK November 08, 2024 5:00a m Chief Complaint Admit Date LABWORK August 06, 2024 4:00pm LABWORK August 08, 2024 8:05am PRISON LAB WORK August 22, 2024 7: 10am PRISON LAB WORK September 05, 2024 8 :00am LABWORK September 19, 2024 5:00 am PRISON LAB WORK September 23, 2024 8: 20am PRISON LAB WORK October 03, 2024 4 :00am LABWORK October 17, 2024 5:00am LABOWRK November 08, 2024 5:00a m PRISON LAB WORK November 14, 2024 6:5 0am LABOWRK November 28, 2024 5:00 am Chief Complaint Admit Date LABOWRK November 28, 2024 5:00 am PRISON LAB WORK December 12, 2024 7: 40am PRISON LAB WORK December 24, 2024 12: 15am PRISON LAB WORK December 26, 2024 5: 00am PRISON LAB WORK January 09, 2025 7: 00am LABWORK January 23, 2025 5:0 0am LABWORK February 06, 2025 5: 00am PRISON LAB WORK February 20 5:00am PRISON LAB WORK March 10 4:00am Additional Source Comments INFORMATION SOURCE (unrecogn ized section and content) DATE CREATED AUTHOR 12/13/2017 [facility] DATE CREATED AUTHOR AUTHOR'S ORGANIZ ATION 10/08/2020 [facility] DATE CREATED AUTHOR AUTHOR'S ORGANIZ ATION 08/26/2021 [facility] DATE CREATED AUTHOR AUTHOR'S ORGANIZ ATION 02/05/2024 [facility] DATE CREATED AUTHOR AUTHOR'S ORGANIZ ATION 04/18/2025 [facility] Reason for Visit (unrecogniz ed section and content) Reason Comments Fall Surgical team Reason Onset Date Comments Results 10/05/2022 Reason Comments Black or Bloody Stool Specialty Diagnoses / Procedures Referred By Contac t Referred To Contact Diagnoses Acute lower GI bleeding Procedures K92.2 Bertram Durbin MD [address] [facility] [address] [place] [address] [facility] Med Surg [address] [place] [address] Referral ID Status Reason Start Date Expiration Date Visits Re quested Visits Authorized [id number] 1 Reason Onset Date Comments Med [...] To Contact Diagnoses LING (acute kidney injury) ([facility]) ([facility]) Procedures .. Gabrielle Finch MD [address] [place] [address] [facility] Emergency Dept [address] [place] [address] Referral ID Status Reason Start Date Expiration Date Visits Re quested Visits Authorized [id number] 1 1 Reason Onset Date Comments ER [...] Active Start: November 28, 2024 Dr. Melissa HTOMPSON MD Attending Provider Active Start: November 28, [...] Attending Provider Active Start: September 19, 2024 Guide Changer Relationship Specialty Start Date End Date Shiv Lopez MD [address] [place], [place] [id number] PCP - General 02/01/19 Guide Changer Relationship Specialty Start Date End Date Shiv Lopez MD [facility] [place] [id number] PCP - General 02/01/19 Guide Changer Relationship Specialty Start Date End Date Shiv Lopez MD [facility] [place] [id number] PCP - General 02/01/19 Guide Changer Relationship Specialty Start Date End Date Shiv Lopez MD [address] [place] [address] PCP - General 02/01/19 Guide Changer Relationship Specialty Start Date End Date Shiv Lopez MD [address] [place] [address] PCP - General 02/01/19 Guide Changer Relationship Specialty Start Date End Date Shiv Lopez MD [address] [place] [address] PCP - General 02/01/19 Guide Changer Relationship Specialty Start Date End Date Shiv Lopez MD [address] [place] [address] PCP - General 02/01/19 Guide Changer Relationship Specialty Start Date End Date Shiv Lopez MD 25 [facility] [place] [address] PCP - General 02/01/19 Guide Changer Relationship Specialty Start Date End Date Shiv Lopez MD 25 [facility] [place] [address] PCP - General 02/01/19 Guide Changer Relationship Specialty Start Date End Date Shiv Lopez MD [address] [facility] [place] [address] PCP - General 02/01/19 Guide Changer Relationship Specialty Start Date [place] [address] PCP - General 02/01/19 Guide Changer Relationship Specialty Start Date [place] [address] PCP - General 02/01/19 Guide Changer Relationship Specialty Start Date [place] [address] PCP - General 02/01/19 Guide Changer Relationship Specialty Start Date [place] [address] PCP - General 02/01/19 Team Status: Active [...] THOMPSON MD Attending Provider, Referring Provider Active Guide Changer Relationship Specialty Start Date End Date Shiv Lopez MD [address] [place] [id number] PCP - General 02/01/19 Guide Changer Relationship Specialty Start Date End Date Shiv Lopez MD [address] [place] [id number] PCP - General 02/01/19 Guide Changer Relationship Specialty Start Date End Date Shiv Lopez MD [address] [place] [id number] PCP - General 02/01/19 Guide Changer Relationship Specialty Start Date End Date Shiv Lopez MD [address] [place] [id number] PCP - General 02/01/19 Team Status: Inactive [...] November 28, 2024 End: November 28, 2024 Team Status: Active Member Role/Relationship Status Dates Dr. Melissa THOMPSON MD Primary care physician Active Team Status: Inactive Member Role/Relationship Status Dates Dr. Melissa Reed MD Primary care physician Active Start: November 28, 2024 End: November 28, 2024 Dr. Melissa THOMPSON MD Attending physician Active Start: November 28, 2024 End: November 28, 2024 Team Status: Inactive Member Role/Relationship Status Dates Dr. Melissa Reed MD Primary care physician Active Start: December 12, 2024 End: December 12, 2024 Dr. Melissa THOMPSON MD Attending physician Active Start: December 12, 2024 End: December 12, 2024 Team Status: Inactive Member Role/Relationship Status Dates Dr. Melissa Reed MD Primary care physician Active Start: December 17, 2024 Dr. Princess Lu MD Attending physician Active Start: December 17, 2024 Team Status: Active Member Role/Relationship Status Dates Dr. Melissa Reed MD Primary care physician Active Start: December 24, 2024 Dr. Melissa THOMPSON MD Attending physician Active Start: December 24, 2024 Team Status: Active Member Role/Relationship Status Dates Dr. Melissa Reed MD Primary care physician Active Start: December 26, 2024 Dr. Melissa THOMPSON MD Attending physician Active Start: December 26, 2024 Team Status: Active Member Role/Relationship Status Dates Dr. Melissa Reed MD Primary care physician Active Start: January 09, 2025 Dr. Melissa THOMPSON MD Attending physician Active Start: January 09, 2025 Team Status: Active Member Role/Relationship Status Dates Dr. Melissa Reed MD Primary care physician Active Start: January 23, 2025 Dr. Melissa THOMPSON MD Attending physician Active Start: January 23, 2025 Team Status: Active Member Role/Relationship Status Dates Dr. Melissa Reed MD Primary care physician Active Start: February 06, 2025 Dr. Melissa THOMPSON MD Attending physician Active Start: February 06, 2025 Team Status: Active Member Role/Relationship Status Dates Dr. Melissa Reed MD Primary care physician Active Start: February 20, 2025 Dr. Melissa THOMPSON MD Attending physician Active Start: February 20, 2025 Team Status: Active Member Role/Relationship Status Dates Dr. Melissa Reed MD Primary care physician Active Start: March 06, 2025 Dr. Melissa THOMPSON MD Attending physician Active Start: March 06, 2025 Team Status: Active Member Role/Relationship Status Dates Dr. Melissa THOMPSON MD Primary care physician Active Start: March 10, 2025 Dr. Melissa THOMPSON MD Attending physician Active Start: March 10, 2025 Dr. Melissa THOMPSON MD Referring Provider Active Start: March 10, 2025 Team Status: Active Member Role/Relationship Status Dates Dr. Melissa THOMPSON MD Primary care physician Active Start: March 14, 2025 Dr. Melissa THOMPSON MD Attending physician Active Start: March 14, 2025 Team Status: Active Member Role/Relationship Status Dates Dr. Melissa THOMPSON MD Primary care physician Active Start: March 20, 2025 Dr. Melissa THOMPSON MD Attending physician Active Start: March 20, 2025 Scheduled Active and Recently Administ ered Medications [...] Daily, First dose on Mon12/05/22 at 1955 1955 (Not Given - Provider: Abby Kahn RN - Reason: Order parameters not met - Comment: Held per IMS) 0859 (Given - Provider: Oneyda Young RN) 0900 (Not Given - Provider: Lambert Kaur RN - Reason: NPO) baclofen (Lioresal) tablet 10 mg 10 mg, Oral, Daily, First dose on Mon12/05/22 at 1955 2050 (Given - Provider: Abby Kahn RN) [...] Oral, Daily, First dose on Mon12/05/22 at 1955, Tube feeding (TF) interaction, obtain physician order [...] parameters not met - Comment: Held per [facility]) 0859 (Given - Provider: Oneyda Young [...] Daily, First dose on Mon12/05/22 at 1955 2050 (Given - Provider: Abby Kahn RN) [...] F (38 C), Starting on Mon12/05/22 at 1952, Administer if oral route cannot be used. [...] F (38 C), Starting on Mon12/05/22 at 1952, Maximum dose of acetaminophen is 4000 mg from all sources in 24 hours. 0032 (Given - Provider: Juan Nguyen, RN)0859 (Given - Provider: Oneyda Young RN) [...] PRN, nausea, vomiting, Starting on Mon12/05/22 at 1952
1st Line. Give IV if patient is [...] (Select all that apply): Urinary Tract Infection 09 (Given - Provider: Alma Turner RN)2109 (Given [...] Use: Prophylaxis-DVT/PE, Indications: Prophylaxis of Venous Thromboembolism 09 (Given - Provider: Alma Turner RN) 09 [...] 1848 (Given - Provider: Alma Turner RN) 09 (Given - Provider: Tristan Champion LPN) 0809 [...] 2099 (Given - Provider: Lizeth Shelby RN) rosuvastatin [...] Alma Turner RN)1707 (Stopped - Provider: Alma Turner, RN) PRN Medication Order 03/01/2023 03/02/2023 03/03/2023 [...] BE BASED ON THE PRIMARY CLINICAL RECORDS. [facility] provides no warranty or guarantee of the accuracy or completeness of information in this document.
[2025-04-22 08:59] LABS: Anion Gap 9 (5-15); BUN 30 mg/dL (4-19); BUN/Creat Ratio 25.4 RATIO (10-20); Calcium,Total 8.4 mg/dL (7.6-11.0); Carbon Dioxide 30.8 mmol/L (21.0-32.0); Chloride 100 mmol/L (98-108); Glucose 190 mg/dL (70-99); Magnesium 2.1 mg/dL (1.5-2.2); Potassium 3.7 mmol/L (3.3-5.1)
== END ==
LOC: OLS.SW 05:00
PROVIDERS: PCP Internal Medicine; Visit Provider Internal Medicine
DX: E11.9 Type 2 diabetes mellitus without complications (principal)
CPT/HCPCS: 36415; 80048; 83735

== ENCOUNTER → 2025-04-24 | Outpatient (REF) | payer MEDICARE, MEDICAID, SELFPAY ==
--- OUTSIDE RECORDS SUMMARY | 2025-04-24 04:13 | XMS RPT_ITS | CCD ---
Author Organization [facility] Care Team Providers Care Senior Applications Developer Name Role Phone Shiv Lopez Unavailable Unavailable [...] FINCH Attending Unavailable ADAM HOLT Consulting Unavailable SHIV LOPEZ Primary Care Unavailable KATIA GRANADOS Attending Unavailable JOHN, SHIV Primary Care Unavailable KATIA GRANADOS Attending Unavailable LENARD MAGALLANES Attending Unavailable JOHN, SHIV Primary Care Unavailable John TOWNSEND, Dr. Chaney Primary Care Provider Dr. Melissa Reed MD Attending Provider Unavaildiony Reed MD, Dr. Torres Primary Care Provider Doris Argueta MD, Dr. Betancur Attending Provider [phone] Dr. Gypsy Argueta MD Referring Provider Dr. Melissa Reed MD Referring Provider Unavaildiony Lopez MD, Dr. Chaney Primary Care Provider Brianna TOWNSEND, Dr. Torres Attending Provider Unavaildiony Lopez MD, Dr. Chaney Primary Care Provider [phone] Brianna TOWNSEND, Dr. Torres Attending Provider Unavaildiony Reed MD, Dr. Torres Primary Care Provider Doris Reed MD, Dr. Torres Attending Provider Unavaildiony Reed MD, Dr. Torres Primary Care Physician Jamil Reed MD, Dr. Torres Attending Physician Unavail francia Lu MD, Dr. Sánchez Attending Physician Brianna TOWNSEND, Dr. Torres Primary Care Physician Jamil Reed MD, Dr. Torres Referring Provider Unavaila ble Gudla, Melissa Primary Care Unavailable Gudla Ryley THOMPSONyothi Attending Unavailable Shiv Lopez Primary Care Unavailable Gudla Ryley THOMPSONyothi Attending Unavailable Gudla Ryley THOMPSONyothi Referring Unavailable Gudla, Melissa Primary Care Unavailable Gudla Ryley THOMPSONyothi Attending Unavailable Gudla, Melissa Primary Care Unavailable Gudla Ryley THOMPSONyothi Attending Unavailable Gudla Ryley THOMPSONyothi Attending Unavailable Gudla OLS, Mleissa Primary Care Unavailable Shiv Lopez Primary Care Unavailable Gudla Ryley THOMPSONyothi Attending Unavailable Shiv Lopez Primary Care Unavailable Gudla Ryley THOMPSONyothi Attending Unavailable Gudla OLS, Melissa Primary Care Unavailable Gudla Ryley THOMPSONyothi Attending Unavailable Gudla, Melissa Primary Care Unavailable Gudla Ryley THOMPSONyothi Attending Unavailable Basaljanina Ayman Referring Unavailable Basali Ayman Attending Unavailable Gudla, Melissa Primary Care Unavailable Gudla Ryley THOMPSONyothi Attending Unavailable Gudla, Melissa Primary Care Unavailable Gudla Ryley THOMPSONyothi Attending Unavailable Gudla, Melissa Primary Care Unavailable Gudla Ryley THOMPSONyothi Attending Unavailable Gudla, Melissa Primary Care Unavailable Gudla Ryley THOMPSONyothi Attending Unavailable Gudla, Melissa Primary Care Unavailable Gudla Ryley THOMPSONyothi Attending Unavailable Gudla JAY Melissa Referring Unavailable Gudla OLS, Melissa Primary [...] Care Unavailable Gudla JAY, Melissa Attending Unavailable Dong Terrell Attending Unavailable Gudla OLS, Melissa Primary Care Unavailable Gudla, Melissa Primary Care Unavailable Gudla JAY, Melissa Attending Unavailable Dong Terrell Referring Unavailable Dong Terrell Attending Unavailable Gudla OLS, Melissa Primary Care Unavailable [facility], Shiv Primary Care Unavailable Gudla OLS, Melissa Attending Unavailable John, Shiv Primary Care Unavailable Gudla OLS, Melissa Attending Unavailable Gudla, Melissa Primary Care Unavailable Gudla JAY, Melissa Attending Unavailable Allergies Allergy Classification Reported Allergen(s) Allergy Type Date of Onset Reaction(s) Facility Opioid Agonists (2 sources) Codeine Drug Allergy 5 Itching [facility] (20 sources) Codeine Drug Allergy 5 Itching [facility], [place] (20 sources) Oxycodone-Aspiri n Propensity to adverse reactions to drug 5 [place], [place] (20 sources) oxyCODONE Drug Allergy 1 Hives [facility] (20 sources) Vancomycin Drug Allergy 1 Rash [facility] (20 sources) Other Allergy to substance 3 [facility] (17 sources) Aspirin Drug Allergy 1 Other [facility] (2 sources) Aluminum aspirin Drug Allergy 1 [facility] (1 source) Aspirin Drug Allergy 1 [facility] Repository (1 source) oxyCODONE Drug Allergy 1 [facility] Repository (1 source) Vancomycin Drug Allergy 1 [facility] Repository Medications Current Medications Medication Drug [...] (LIST CLEANUP) Blood Glucose Calibration (GLUCOSE CONTROL) LINNEA (2 sources) Start: 07-06-2021 Blood Glucose Calibration (GLUCOSE CONTROL) SOLN Please [...] oral solution (1 source) alpha-Adrenergic Agonist, Uncompetitive F-fntjaz-E-aspartat e Receptor Antagonist, Sigma-1 Agonist Start: 09-10-2018 [...] Active docusate sodium 50 mg / sennosides, fci 8.6 mg oral tablet (20 sources) Start: [...] every week ergocalciferol (Vitamin D-2) 1.25 MG (41042 UT) capsule Indications: Vitamin D deficiency Take 1 capsule (1.25 mg) by mouth 1 (one) time per week. 90 capsule 1 07/18/2022 Active Start: 06-10-2021 take 1 capsule by mo [facility] every week vitamin D (ERGOCALCIFEROL) 1.25 MG (82572 UT) CAPS capsule Take 1 capsule by mouth once a week 12 capsule 1 06/10/2021 Active Start: 12-23-2020 Start: 01-16-2020 take 1 capsule by mo [facility] every week vitamin D (ERGOCALCIFEROL) 1.25 MG (69065 UT) CAPS capsule Take 1 capsule by mouth once a week 12 capsule 1 01/16/2020 Active Start: 10-01-2018 ergocalciferol (DRISDOL) 70567 units capsule 1 capsule every week 8 [...] 150 mcg, Oral, Daily, First dose on 03/01/23 at 0600 Tube feeding (TF) interaction, obtain [...] Drug Class(es) Dates Sig (Normalized) Sig (Original) [id number] 200 actuat albuterol 0.09 mg/actuat metered dose [...] Start: 07-15-2021 take 1 tablet by goran once daily Start: 02-19-2021 End: 07-15-2021 take [...] tablet Discontinued 5 mg PO DAILY 90 February 09, 2021 2:54pm February 19, 2021 [...] CLEANUP) Start: 06-04-2019 Continuous Blo od Gluc Silk Examiner (FREESTYLE EVIN 14 DAY READER) JO LENGTH [...] End: 10-01-2020 Continuous Blood Gluc Sensor (FREESTYLE VEIN 14 DAY SENSOR) MISC LENGTH OF NEED [...] 08/05/2021 Discontinued (LIST CLEANUP) polyethylene glycol 3350 83895 mg powder for oral solution (3 sources) [...] in past 24 hours. polyethylene glycol 3350 447959 mg / potassium chloride 2970 mg / sodium bicarbonate 6740 mg / sodium chloride 5860 mg / sodium sulfate 38788 mg powder for oral solution (2 sources) [...] aftercare (5 sources) Polypharmacy ; Translations: [Other filler leaf cutter long (current) drug therapy] Onset: 3 03-01-2023 Episodic Other aftercare (2 sources) Other chcf (current) drug therapy; Translations: [Other chcf (current) drug therapy] Onset: 3 Episodic Other aftercare (2 sources) halfway (current) use of insulin; Translations: [halfway (current) use of insulin (HCC)] Onset: 3 [...] Range Facility Basic Metabolic Profile (BMP )on 04-22-2025 BUN/CRE 25.4 RATIO High 04-07 [facility] Comment on above: Order Comment: 515.1 Performed By: #### L 501.5200, L500.2500 ####[facility] [address] [place], [place], [id number] Calcium [Mass/Vol] 8.4 mg/dL Normal 7.6-11.0 [facility] Comment on above: Order Comment: 515.1 Performed By: #### L 501.5200, L500.2500 ####[facility] [address] [place], [address] Chloride [Moles/Vol] 100 mmol/L Normal 98-108 [facility] Comment on above: Order Comment: 515.1 Performed By: #### L 501.5200, L500.2500 ####[facility] [address] [place], [address] CO2 [Moles/Vol] 30.8 mmol/L Normal 21.0-32.0 [facility] Comment on above: Order Comment: 515.1 Performed By: #### L 501.5200, L500.2500 ####[facility] [address] [place], [address] Creatinine [Mass/Vol] 1.18 mg/dL Normal 0.70-1.20 [facility] Comment on above: Order Comment: 515.1 Performed By: #### L 501.5200, L500.2500 ####[facility] [address] [place], [address] GAP 9 Normal 5-15 [facility] Comment on above: Order Comment: 515.1 Performed By: #### L 501.5200, L500.2500 ####[facility] [address] [place], [address] GFR/1.73 sq M.predicted among non-blacks MDRD (S/P/Bld) [Vol rate/Area] 46 mL/min/{1.73_m2} Low >60 [facility] Comment on above: Order Comment: 515.1 Result Comment: mL/m in/1.73m2 CKD-EPI Creatinine Equation (2020) Performed By: #### L 501.5200, L500.2500 ####[facility] [address] [place], [address] Glucose [Mass/Vol] 190 mg/dL High 70-99 [facility] Comment on above: Order Comment: 515.1 Performed By: #### L 501.5200, L500.2500 ####[facility] [address] [place], [address] Potassium [Moles/Vol] 3.7 mmol/L Normal 3.3-5.1 [facility] Comment on above: Order Comment: 515.1 Performed By: #### L 501.5200, L500.2500 ####[facility] [address] [place], [address] Sodium [Moles/Vol] 140 mmol/L Normal 133-145 [facility] Comment on above: Order Comment: 515.1 Performed By: #### L 501.5200, L500.2500 ####[facility] [address] [place], [address] Urea nitrogen [Mass/Vol] 30 mg/dL High 4-19 [facility] Comment on above: Order Comment: 515.1 Performed By: #### L 501.5200, L500.2500 ####[facility] [address] [place], [address] Magnesiumon 04-22-2025 Magnesium [Mass/Vol] 2.1 mg/dL Normal 1.5-2.2 [facility] Comment on above: Order Comment: 515.1 Performed By: #### L 501.5200, L500.2500 ####[facility] [address] [place], [address] T4 Total, Thyroxinon 025 T4 [Mass/Vol] 7.3 ug/dL Normal 4.8-13.9 [facility] Comment on above: Order Comment: 301.1 Performed By: #### L 500.2500, L501.5200 #### [facility] [address] [place], [address] [id number] 04-09-2025 [facility] Misc. COMMENT Normal . [facility] Comment on above: Order Comment: 157 Result Comment: Test Ordered: [id number] Amikacin Trough, Serum Amikacin Trough, Serum 7.1 ug/mL Reference Range: 1.0-8.0 Detection Limit = 0.8 <0.8 indicates None Detected Performed at: - [facility] [address] [id number] [employer]: Germain Craig PhD, Phone: [phone] Performed By: #### L 501.5200, L500.2500 #### [facility] [address] [place], [address] Hemoglobin A1con 04-08-2025 HbA1c (Bld) [Mass fraction] 7.2 % High <=5.6 [facility] Comment on above: Order Comment: 157 Result Comment: Norm al < 5.7 % Prediabetic 5.7 - 6.4 % Diabetic >or= 6.5 % Please note range changes. Performed By: #### L 501.5200, L500.2500 #### [facility] [address] [place], [address] Lipid Profileon 04-08-2025 CHOL:HDL 2.38 Normal [facility] Comment on above: Order Comment: 157 Performed By: #### L 501.5200, L500.2500 #### [facility] [address] [place], [address] Cholesterol [Mass/Vol] 159 mg/dL Normal <=200 [facility] Comment on above: Order Comment: 157 Result Comment: Chol esterol level, Desirable <200 mg/dL Borderline high cholesterol 200-239 mg/dL High cholesterol >=240 mg/dL Recommendations of the NCEP Adult Treatment Panel for the following risk-cutoff thresholds for the [place] population. Performed By: #### L 501.5200, L500.2500 #### [facility] [address] [place], [address] Cholesterol in HDL [Mass/Vol] 67 mg/dL Normal [facility] Comment on above: Order Comment: 157 Result Comment: Misti onal Cholesterol Education Program (NCEP) guidelines: <40 mg/dL: Low HDL-cholesterol (major risk factor for CHD) >= 60 mg/dL: High HDL-cholesterol (negative risk factor for CHD) HDL-cholesterol is affected by a number of factors, e.g. smoking, exercise, hormones, sex and age. Performed By: #### L 501.5200, L500.2500 #### [facility] [address] [place], [address] Cholesterol in LDL [Mass/Vol] 73 mg/dL Normal [facility] Comment on above: Order Comment: 157 Result Comment: Bord juryqz=926-944 mg/dL Higher Caha=181 mg/dL or greater Ferris Equation 2020 for LDL-C Performed By: #### L 501.5200, L500.2500 #### [facility] [address] [place], [address] Cholesterol in VLDL [Mass/Vol] 21 mg/dL Normal 5-40 [facility] Comment on above: Order Comment: 157 Performed By: #### L 501.5200, L500.2500 #### [facility] [address] [place], [address] Triglyceride [Mass/Vol] 105 mg/dL Normal [facility] Comment on above: Order Comment: 157 Result Comment: The drugs N-Acetylcysteine and Metamizole may falsely depress this assay. Normal range: <150 mg/dL Borderline High: 150-199 mg/dL High: 200-499 mg/dL Very High: >500 mg/dL Performed By: #### L 501.5200, L500.2500 #### [facility] [address] [place], [address] Thyroid Stim Hormone (TSH)on 04-08-2025 TSH 4.490 uIU/mL High 0.300-4.200 [facility] Comment on above: Order Comment: 157 Performed By: #### L 501.5200, L500.2500 #### [facility] [address] [place], [address] Vitamin D,25 Hydroxyon 04-08 Vitamin D 25-OH 57.3 ng/mL Normal 30-100 [facility] Comment on above: Order Comment: 157 Result Comment: Tamar min D Status Deficiency: <20 ng/mL (50nmol/L) Insufficiency: 20-30 ng/mL (50-75 nmol/L) Sufficiency: 30-100 ng/mL (75-250 nmol/L) Toxicity: >100 ng/mL (>250 nmol/L) Performed By: #### L 501.5200, L500.2500 #### [facility] [address] [place], [address] Basic Metabolic Profile (BMP )on 04-03-2025 BUN/CRE 20.2 RATIO High - [facility] Comment on above: Order Comment: 301.1 Performed By: #### L 100.0500, L500.2500 ####[facility] [address] [place], [address] Calcium [Mass/Vol] 8.6 mg/dL Normal 7.6-11.0 [facility] Comment on above: Order Comment: 301.1 Performed By: #### L 100.0500, L500.2500 ####[facility] [address] [place], [address] Chloride [Moles/Vol] 99 mmol/L Normal 98-108 [facility] Comment on above: Order Comment: 301.1 Performed By: #### L 100.0500, L500.2500 ####[facility] [address] [place], [address] CO2 [Moles/Vol] 29.2 mmol/L Normal 21.0-32.0 [facility] Comment on above: Order Comment: 301.1 Performed By: #### L 100.0500, L500.2500 ####[facility] [address] [place], [address] Creatinine [Mass/Vol] 1.17 mg/dL Normal 0.70-1.20 [facility] Comment on above: Order Comment: 301.1 Performed By: #### L 100.0500, L500.2500 ####[facility] [address] [place], [address] GAP 11 Normal 5-15 [facility] Comment on above: Order Comment: 301.1 Performed By: #### L 100.0500, L500.2500 ####[facility] [address] [place], [address] GFR/1.73 sq M.predicted among non-blacks MDRD (S/P/Bld) [Vol rate/Area] 47 mL/min/{1.73_m2} Low >60 [facility] Comment on above: Order Comment: 301.1 Result Comment: mL/m in/1.73m2 CKD-EPI Creatinine Equation (2020) Performed By: #### L 100.0500, L500.2500 ####[facility] [address] [place], [address] Glucose [Mass/Vol] 180 mg/dL High 70-99 [facility] Comment on above: Order Comment: 301.1 Performed By: #### L 100.0500, L500.2500 ####[facility] [address] [place], [address] Potassium [Moles/Vol] 3.8 mmol/L Normal 3.3-5.1 [facility] Comment on above: Order Comment: 301.1 Result Comment: Hemo lysis present, Results??could be affected. ?? Performed By: #### L 100.0500, L500.2500 ####[facility] [address] [place], [address] Sodium [Moles/Vol] 139 mmol/L Normal 133-145 [facility] Comment on above: Order Comment: 301.1 Performed By: #### L 100.0500, L500.2500 ####[facility] [address] [place], [address] Urea nitrogen [Mass/Vol] 24 mg/dL High 4-19 [facility] Comment on above: Order Comment: 301.1 Performed By: #### L 100.0500, L500.2500 ####[facility] [address] [place], [address] CBC-Complete Blood Cnt No Di ffon 04-03-2025 Erythrocyte distribution width (RBC) [Ratio] 12.7 % Normal 11.6-14.6 [facility] Comment on above: Order Comment: 301.1 Performed By: #### L 100.0500, L500.2500 ####[facility] [address] [place], [address] Hematocrit (Bld) [Volume fraction] 40.0 % Normal 37-47 [facility] Comment on above: Order Comment: 301.1 Performed By: #### L 100.0500, L500.2500 ####[facility] [address] [place], [address] Hemoglobin (Bld) [Mass/Vol] 12.5 g/dL Normal 12.0-15.0 [facility] Comment on above: Order Comment: 301.1 Performed By: #### L 100.0500, L500.2500 ####[facility] [address] [place], [address] MCH (RBC) [Entitic mass] 30.5 pg Normal 27.0-32.0 [facility] Comment on above: Order Comment: 301.1 Performed By: #### L 100.0500, L500.2500 ####[facility] [address] [place], [address] MCHC (RBC) [Mass/Vol] 31.3 g/dL Low 32-36 [facility] Comment on above: Order Comment: 301.1 Performed By: #### L 100.0500, L500.2500 ####[facility] [address] [place], [address] MCV (RBC) [Entitic vol] 97.6 fL Normal 81-99 [facility] Comment on above: Order Comment: 301.1 Performed By: #### L 100.0500, L500.2500 ####[facility] [address] [place], [address] Platelet mean volume (Bld) [Entitic vol] 10.1 fL Normal 6.2-12.0 [facility] Comment on above: Order Comment: 301.1 Performed By: #### L 100.0500, L500.2500 ####[facility] [address] [place], [address] Platelets (Bld) [#/Vol] 222 10*3/uL Normal 150-450 [facility] Comment on above: Order Comment: 301.1 Performed By: #### L 100.0500, L500.2500 ####[facility] [address] [place], [address] RBC (Bld) [#/Vol] 4.10 10*6/uL Low 4.2-5.4 [facility] Comment on above: Order Comment: 301.1 Performed By: #### L 100.0500, L500.2500 ####[facility] [address] [place], [address] RDW SD 45.2 fl High 35.1-43.9 [facility] Comment on above: Order Comment: 301.1 Performed By: #### L 100.0500, L500.2500 ####[facility] [address] [place], [address] WBC (Bld) [#/Vol] 8.6 10*3/uL Normal 4.4-11.0 [facility] Comment on above: Order Comment: 301.1 Performed By: #### L 100.0500, L500.2500 ####[facility] [address] [place], [address] Urine Cultureon 03-30-2025 [facility] REFER TO [id number] FOR O LABORATORY CARBAPENEMASE TESTING. Urine Culture Copy of report sent to Infection Control Printer [id number] 03/29/25 0748 SANDEEP. Urine Culture ESBL Escherichia coli [place] Count >100,000 MARKER Possible Carbapenemase producing EnterobacteriaceaeA MARKER Possible Carbapenemase producing EnterobacteriaceaeA Amikacin Islt LAVINIA <=1 S Ampicillin Islt LAVINIA >=32 Ampicillin+Sulbac Islt LAVINIA >=32 R Cefepime Islt LVAINIA >=32 R Eravacycline Islt LAVINIA <=0.12 S [...] TMP SMX Islt LAVINIA >=320 R Normal [facility] Comment on above: Performed By: #### M 100.2200, L400.0001 #### [facility] [address] [place], [address] Urinalysis, Completeon 03-27 BACTERIA 2+ /hpf Normal None Seen [facility] Comment on above: Order Comment: CLEAN CATCH Performed By: #### M 100.2200, L400.0001 #### [facility] [address] [place], [address] EPI,SQUAMOUS 10-25 SEEN Normal 5-10 [facility] Comment on above: Order Comment: CLEAN CATCH Performed By: #### M 100.2200, L400.0001 #### [facility] [address] [place], [address] WBC >100 SEEN Normal 0-5 [facility] Comment on above: Order Comment: CLEAN CATCH Performed By: #### M 100.2200, L400.0001 #### [facility] [address] [place], [address] Mucus Ql (Urine sed) 0 SEEN Normal [facility] Comment on above: Order Comment: CLEAN CATCH Performed By: #### M 100.2200, L400.0001 #### [facility] [address] [place], [address] RBC 0 SEEN Normal 0-5 [facility] Comment on above: Order Comment: CLEAN CATCH Performed By: #### M 100.2200, L400.0001 #### [facility] [address] [place], [address] Anion gap in Serum or Plasma Ordered By: Melissa Reed on 03-20-2025 Anion gap [Moles/Vol] 11 mmol/L 10-31 [facility] BUN/creatinine ratioOrdered By: Melissa Reed on 03-20-2025 Urea nitrogen/Creatinine [Mass ratio] 19.3 mg/mg 04-07 [facility] Basic Metabolic Profile (BMP )on 03-20-2025 BUN/CRE 19.3 RATIO Normal - [facility] Comment on above: Order Comment: 157 Performed By: #### L 500.2500, L501.5200 ####[facility] [address] [place], [address] GAP 11 Normal - [facility] Comment on above: Order Comment: 157 Performed By: #### L 500.2500, L501.5200 ####[facility] [address] [place], [address] Potassium [Moles/Vol] 3.8 mmol/L Normal 3.3-5.1 [facility] Comment on above: Order Comment: 157 Performed By: #### L 500.2500, L501.5200 ####[facility] [address] [place], [address] Carbon dioxide, total [Moles /volume] in Central venous bloodOrdered By: Melissa Reed on 03-20-2025 CO2 [Moles/Vol] 28.7 mmol/L Normal 21.0-32.0 [facility] Comment on above: Order Comment: 157 Performed By: #### L 500.2500, L501.5200 ####[facility] [address] [place], [address] Chloride assayOrdered By: Sd Reed on 03-20-2025 Chloride [Moles/Vol] 100 mmol/L Normal 98-108 [facility] Comment on above: Order Comment: 157 Performed By: #### L 500.2500, L501.5200 ####[facility] [address] [place], [address] Glomerular filtration rate ( GFR) estimation/1.73 sq m using serum, plasma, or whole bOrdered By: Melissa Reed on 03-20-2025 GFR/1.73 sq M.predicted among non-blacks MDRD (S/P/Bld) [Vol rate/Area] 55 mL/min/{1.73_m2} Low >60 [facility] Comment on above: mL/min/1.73m2 CKD-EP I Creatinine Equation (2020) Order Comment: 157 Result Comment: mL/m in/1.73m2 CKD-EPI Creatinine Equation (2020) Performed By: #### L 500.2500, L501.5200 ####[facility] [address] [place], [address] Magnesiumon 03-20-2025 Magnesium [Mass/Vol] 2.1 mg/dL Normal 1.5-2.2 [facility] Comment on above: Order Comment: 157 Performed By: #### L 500.2500, L501.5200 ####[facility] [address] [place], [address] Magnesium measurement (mass/ volume)Ordered By: Melissa Millsnaz on 03-20-2025 Magnesium (Unsp spec) [Mass/Vol] 2.1 mg/dL 1.5-2.2 [facility] Potassium measurement (mass/ volume)Ordered By: Melissa Millsnaz on 03-20-2025 Potassium (Unsp spec) [Mass/Vol] 3.8 mmol/L 3.3-5.1 [facility] [facility] Serum creatinine measurement (mass/volume)Ordered By: Melissa Millsnaz on 03-20-2025 Creatinine [Mass/Vol] 1.03 mg/dL Normal 0.70-1.20 [facility] Comment on above: Order Comment: 157 Performed By: #### L 500.2500, L501.5200 ####[facility] [address] [place], [address] Serum glucose measurement (m ass/volume)Ordered By: Melissabernadine Millsnaz on 03-20-2025 Glucose [Mass/Vol] 183 mg/dL High 70-99 [facility] Comment on above: Order Comment: 157 Performed By: #### L 500.2500, L501.5200 ####[facility] [address] [place], [address] Serum or plasma calcium danae urement (mass/volume)Ordered By: Melissa Reed on 03-20-2025 Calcium [Mass/Vol] 8.9 mg/dL Normal 7.6-11.0 [facility] Comment on above: Order Comment: 157 Performed By: #### L 500.2500, L501.5200 ####[facility] [address] [place], [address] Serum or plasma urea nitroge n measurement (mass/volume)Ordered By: Melissabridgette Reed on 03-20-2025 Urea nitrogen [Mass/Vol] 20 mg/dL High 4-19 [facility] Comment on above: Order Comment: 157 Performed By: #### L 500.2500, L501.5200 ####[facility] [address] [place], [address] Sodium levelOrdered By: Rubin Reed on 03-20-2025 Sodium [Moles/Vol] 139 mmol/L Normal 133-145 [facility] Comment on above: Order Comment: 157 Performed By: #### L 500.2500, L501.5200 ####[facility] [address] [place], [address] Hemoglobin A1con 03-14-2025 HbA1c (Bld) [Mass fraction] 6.8 % High <=5.6 [facility] Comment on above: Order Comment: 157 Result Comment: Norm al < 5.7 % Prediabetic 5.7 - 6.4 % Diabetic >or= 6.5 % Please note range changes. Performed By: #### L 501.9988 ####[facility] [address] [place], [address] Hemoglobin A1c percentageOrd ered By: Melissa Reed on 03-14-2025 HbA1c (Bld) [Mass fraction] 6.8 % High <5.7 [facility] Comment on above: Normal < 5.7 % Predi abetic 5.7 - 6.4 % Diabetic >or= 6.5 % Please note range changes. Anion gap in Serum or Plasma Ordered By: Melissa Reed on 03-10-2025 Anion gap [Moles/Vol] 10 mmol/L - [facility] BUN/creatinine ratioOrdered By: Melissa Reed on 03-10-2025 Urea nitrogen/Creatinine [Mass ratio] 22.7 mg/mg High 04-07 [facility] Basic Metabolic Profile (BMP )on 03-10-2025 BUN/CRE 22.7 RATIO High 04-07 [facility] Comment on above: Order Comment: 157 Performed By: #### L 500.2500, L501.5200 #### [facility] [address] [place], [address] Calcium [Mass/Vol] 8.6 mg/dL Normal 7.6-11.0 [facility] Comment on above: Order Comment: 157 Performed By: #### L 500.2500, L501.5200 #### [facility] [address] [place], [address] Chloride [Moles/Vol] 100 mmol/L Normal 98-108 [facility] Comment on above: Order Comment: 157 Performed By: #### L 500.2500, L501.5200 #### [facility] [address] [place], [address] CO2 [Moles/Vol] 28.0 mmol/L Normal 21.0-32.0 [facility] Comment on above: Order Comment: 157 Performed By: #### L 500.2500, L501.5200 #### [facility] [address] [place], [address] Creatinine [Mass/Vol] 1.08 mg/dL Normal 0.70-1.20 [facility] Comment on above: Order Comment: 157 Performed By: #### L 500.2500, L501.5200 #### [facility] [address] [place], [address] GAP 10 Normal 5-15 [facility] Comment on above: Order Comment: 157 Performed By: #### L 500.2500, L501.5200 #### [facility] [address] [place], [address] GFR/1.73 sq M.predicted among non-blacks MDRD (S/P/Bld) [Vol rate/Area] 52 mL/min/{1.73_m2} Low >60 [facility] Comment on above: Order Comment: 157 Result Comment: mL/m in/1.73m2 CKD-EPI Creatinine Equation (2020) Performed By: #### L 500.2500, L501.5200 #### [facility] [address] [place], [address] Glucose [Mass/Vol] 235 mg/dL High 70-99 [facility] Comment on above: Order Comment: 157 Performed By: #### L 500.2500, L501.5200 #### [facility] [address] [place], [address] Potassium [Moles/Vol] 3.7 mmol/L Normal 3.3-5.1 [facility] Comment on above: Order Comment: 157 Performed By: #### L 500.2500, L501.5200 #### [facility] [address] [place], [address] Sodium [Moles/Vol] 138 mmol/L Normal 133-145 [facility] Comment on above: Order Comment: 157 Performed By: #### L 500.2500, L501.5200 #### [facility] [address] [place], [address] Urea nitrogen [Mass/Vol] 25 mg/dL High 4-19 [facility] Comment on above: Order Comment: 157 Performed By: #### L 500.2500, L501.5200 #### [facility] [address] [place], [address] Carbon dioxide, total [Moles /volume] in Central venous bloodOrdered By: Melissa Reed on 03-10-2025 CO2 [Moles/Vol] 28.0 mmol/L 21.0-32.0 [facility] Chloride assayOrdered By: Sd Reed on 03-10-2025 Chloride [Moles/Vol] 100 mmol/L 98-108 [facility] Glomerular filtration rate ( GFR) estimation/1.73 sq m using serum, plasma, or whole bOrdered By: Melissa Reed on 03-10-2025 GFR/1.73 sq M.predicted among non-blacks MDRD (S/P/Bld) [Vol rate/Area] 52 mL/min/{1.73_m2} Low >60 [facility] Comment on above: mL/min/1.73m2 CKD-EP I Creatinine Equation (2020) Natriuretic peptide.B prohor brenda N-Terminal [Mass/volume] in Serum or PlasmaOrdered By: Melissa Reed on 03-10-2025 Natriuretic peptide.B prohormone N-Terminal [Mass/Vol] 179 pg/mL <1800 [facility] Comment on above: Heart Failure Unlike ly: < 300 pg/mLHeart Failure Likely< 50 Years: > 450 pg/mL50-75 Years: > 900 pg/mL>75 Years: > 1800 pg/mL Potassium measurement (mass/ volume)Ordered By: Melissa Reed on 03-10-2025 Potassium (Unsp spec) [Mass/Vol] 3.7 mmol/L 3.3-5.1 [facility] Pro- Brain NATRIURETIC PEPTI Elizabeth 03-10-2025 Natriuretic peptide B (Bld) [Mass/Vol] 179 pg/mL Normal <=1800 [facility] Comment on above: Order Comment: 157 Result Comment: Hear t Failure Unlikely: < 300 pg/mL Heart Failure Likely < 50 Years: > 450 pg/mL 50-75 Years: > 900 pg/mL >75 Years: > 1800 pg/mL Performed By: #### L 500.2500, L501.5200 #### [facility] [address] [place], [address] Serum creatinine measurement (mass/volume)Ordered By: Melissa Reed on 03-10-2025 Creatinine [Mass/Vol] 1.08 mg/dL 0.70-1.20 [facility] Serum glucose measurement (m ass/volume)Ordered By: Melissa Reed on 03-10-2025 Glucose [Mass/Vol] 235 mg/dL High 70-99 [facility] Serum or plasma calcium danae urement (mass/volume)Ordered By: Melissa Reed on 03-10-2025 Calcium [Mass/Vol] 8.6 mg/dL 7.6-11.0 [facility] Serum or plasma urea nitroge n measurement (mass/volume)Ordered By: Melissa Reed on 03-10-2025 Urea nitrogen [Mass/Vol] 25 mg/dL High - [facility] Sodium levelOrdered By: Rubin Reed on 03-10-2025 Sodium [Moles/Vol] 138 mmol/L 133-145 [facility] Anion gap in Serum or Plasma Ordered By: Melissa Reed on 03-06-2025 Anion gap [Moles/Vol] 11 mmol/L 5-15 [facility] BUN/creatinine ratioOrdered By: Melissa Reed on 03-06-2025 Urea nitrogen/Creatinine [Mass ratio] 22.3 mg/mg High - [facility] Basic Metabolic Profile (BMP )on 03-06-2025 BUN/CRE 22.3 RATIO High 04-07 [facility] Comment on above: Order Comment: 157 Performed By: #### L 500.2500, L501.5200 #### [facility] [address] [place], [address] Calcium [Mass/Vol] 8.8 mg/dL Normal 7.6-11.0 [facility] Comment on above: Order Comment: 157 Performed By: #### L 500.2500, L501.5200 #### [facility] [address] [place], [address] Chloride [Moles/Vol] 101 mmol/L Normal 98-108 [facility] Comment on above: Order Comment: 157 Performed By: #### L 500.2500, L501.5200 #### [facility] [address] [place], [address] CO2 [Moles/Vol] 26.7 mmol/L Normal 21.0-32.0 [facility] Comment on above: Order Comment: 157 Performed By: #### L 500.2500, L501.5200 #### [facility] [address] [place], [address] Creatinine [Mass/Vol] 1.08 mg/dL Normal 0.70-1.20 [facility] Comment on above: Order Comment: 157 Performed By: #### L 500.2500, L501.5200 #### [facility] [address] [place], [address] GAP 11 Normal 5-15 [facility] Comment on above: Order Comment: 157 Performed By: #### L 500.2500, L501.5200 #### [facility] [address] [place], [address] GFR/1.73 sq M.predicted among non-blacks MDRD (S/P/Bld) [Vol rate/Area] 52 mL/min/{1.73_m2} Low >60 [facility] Comment on above: Order Comment: 157 Result Comment: mL/m in/1.73m2 CKD-EPI Creatinine Equation (2020) Performed By: #### L 500.2500, L501.5200 #### [facility] [address] [place], [address] Glucose [Mass/Vol] 173 mg/dL High 70-99 [facility] Comment on above: Order Comment: 157 Performed By: #### L 500.2500, L501.5200 #### [facility] [address] [place], [address] Potassium [Moles/Vol] 4.2 mmol/L Normal 3.3-5.1 [facility] Comment on above: Order Comment: 157 Performed By: #### L 500.2500, L501.5200 #### [facility] [address] [place], [address] Sodium [Moles/Vol] 139 mmol/L Normal 133-145 [facility] Comment on above: Order Comment: 157 Performed By: #### L 500.2500, L501.5200 #### [facility] [address] [place], [address] Urea nitrogen [Mass/Vol] 24 mg/dL High 4-19 [facility] Comment on above: Order Comment: 157 Performed By: #### L 500.2500, L501.5200 #### [facility] [address] [place], [place], [address] Carbon dioxide, total [Moles /volume] in Central venous bloodOrdered By: Melissa Reed on 03-06-2025 CO2 [Moles/Vol] 26.7 mmol/L 21.0-32.0 [facility] Chloride assayOrdered By: Sd Reed on 03-06-2025 Chloride [Moles/Vol] 101 mmol/L 98-108 [facility] Glomerular filtration rate ( GFR) estimation/1.73 sq m using serum, plasma, or whole bOrdered By: Melissa Reed on 03-06-2025 GFR/1.73 sq M.predicted among non-blacks MDRD (S/P/Bld) [Vol rate/Area] 52 mL/min/{1.73_m2} Low >60 [facility] Comment on above: mL/min/1.73m2 CKD-EP I Creatinine Equation (2020) Magnesiumon 03-06-2025 Magnesium [Mass/Vol] 2.3 mg/dL High 1.5-2.2 [facility] Comment on above: Order Comment: 157 Performed By: #### L 500.2500, L501.5200 #### [facility] [address] [place], [place], [address] Magnesium measurement (mass/ volume)Ordered By: Melissa Reed on 03-06-2025 Magnesium (Unsp spec) [Mass/Vol] 2.3 mg/dL High 1.5-2.2 [facility] Potassium measurement (mass/ volume)Ordered By: Melisas Reed on 03-06-2025 Potassium (Unsp spec) [Mass/Vol] 4.2 mmol/L 3.3-5.1 [facility] Serum creatinine measurement (mass/volume)Ordered By: Melissa Reed on 03-06-2025 Creatinine [Mass/Vol] 1.08 mg/dL 0.70-1.20 [facility] Serum glucose measurement (m ass/volume)Ordered By: Melissa Reed on 03-06-2025 Glucose [Mass/Vol] 173 mg/dL High 70-99 [facility] Serum or plasma calcium danae urement (mass/volume)Ordered By: Melissa Reed on 03-06-2025 Calcium [Mass/Vol] 8.8 mg/dL 7.6-11.0 [facility] Serum or plasma urea nitroge n measurement (mass/volume)Ordered By: Melissa Reed on 03-06-2025 Urea nitrogen [Mass/Vol] 24 mg/dL High 4-19 [facility] Sodium levelOrdered By: Rubin Reed on 03-06-2025 Sodium [Moles/Vol] 139 mmol/L 133-145 [facility] Anion gap in Serum or Plasma Ordered By: Melissa Reed on 02-20-2025 Anion gap [Moles/Vol] 10 mmol/L 5-15 [facility] BUN/creatinine ratioOrdered By: Melissa Reed on 02-20-2025 Urea nitrogen/Creatinine [Mass ratio] 22.1 mg/mg High 10-20 [facility] Basic Metabolic Profile (BMP )on 02-20-2025 BUN/CRE 22.1 RATIO High 10- [facility] Comment on above: Order Comment: 157 Performed By: #### L 500.2500, L501.5200 #### [facility] [address] [place], [address] Calcium [Mass/Vol] 9.0 mg/dL Normal 7.6-11.0 [facility] Comment on above: Order Comment: 157 Performed By: #### L 500.2500, L501.5200 #### [facility] [address] [place], [address] Chloride [Moles/Vol] 102 mmol/L Normal 98-108 [facility] Comment on above: Order Comment: 157 Performed By: #### L 500.2500, L501.5200 #### [facility] [address] [place], [address] CO2 [Moles/Vol] 27.8 mmol/L Normal 21.0-32.0 [facility] Comment on above: Order Comment: 157 Performed By: #### L 500.2500, L501.5200 #### [facility] [address] [place], [address] Creatinine [Mass/Vol] 1.16 mg/dL Normal 0.70-1.20 [facility] Comment on above: Order Comment: 157 Performed By: #### L 500.2500, L501.5200 #### [facility] [address] [place], [address] GAP 10 Normal 5-15 [facility] Comment on above: Order Comment: 157 Performed By: #### L 500.2500, L501.5200 #### [facility] [address] [place], [address] GFR/1.73 sq M.predicted among non-blacks MDRD (S/P/Bld) [Vol rate/Area] 47 mL/min/{1.73_m2} Low >60 [facility] Comment on above: Order Comment: 157 Result Comment: mL/m in/1.73m2 CKD-EPI Creatinine Equation (2020) Performed By: #### L 500.2500, L501.5200 #### [facility] [address] [place], [address] Glucose [Mass/Vol] 128 mg/dL High 70-99 [facility] Comment on above: Order Comment: 157 Performed By: #### L 500.2500, L501.5200 #### [facility] [address] [place], [address] Potassium [Moles/Vol] 4.4 mmol/L Normal 3.3-5.1 [facility] Comment on above: Order Comment: 157 Performed By: #### L 500.2500, L501.5200 #### [facility] [address] [place], [address] Sodium [Moles/Vol] 140 mmol/L Normal 133-145 [facility] Comment on above: Order Comment: 157 Performed By: #### L 500.2500, L501.5200 #### [facility] [address] [place], [address] Urea nitrogen [Mass/Vol] 26 mg/dL High 4-19 [facility] Comment on above: Order Comment: 157 Performed By: #### L 500.2500, L501.5200 #### [facility] [address] [place], [address] Carbon dioxide, total [Moles /volume] in Central venous bloodOrdered By: Meilssa Reed on 02-20-2025 CO2 [Moles/Vol] 27.8 mmol/L 21.0-32.0 [facility] Chloride assayOrdered By: Sd Reed on 02-20-2025 Chloride [Moles/Vol] 102 mmol/L 98-108 [facility] Glomerular filtration rate ( GFR) estimation/1.73 sq m using serum, plasma, or whole bOrdered By: Melissa Reed on 02-20-2025 GFR/1.73 sq M.predicted among non-blacks MDRD (S/P/Bld) [Vol rate/Area] 47 mL/min/{1.73_m2} Low >60 [facility] Comment on above: mL/min/1.73m2 CKD-EP I Creatinine Equation (2020) Magnesiumon 02-20-2025 Magnesium [Mass/Vol] 2.4 mg/dL High 1.5-2.2 [facility] Comment on above: Order Comment: 157 Performed By: #### L 500.2500, L501.5200 #### [facility] [address] [place], [address] Magnesium measurement (mass/ volume)Ordered By: Melissa Reed on 02-20-2025 Magnesium (Unsp spec) [Mass/Vol] 2.4 mg/dL High 1.5-2.2 [facility] Potassium measurement (mass/ volume)Ordered By: Melissa Reed on 02-20-2025 Potassium (Unsp spec) [Mass/Vol] 4.4 mmol/L 3.3-5.1 [facility] Serum creatinine measurement (mass/volume)Ordered By: Melissa Reed on 02-20-2025 Creatinine [Mass/Vol] 1.16 mg/dL 0.70-1.20 [facility] Serum glucose measurement (m ass/volume)Ordered By: Melissa Reed on 02-20-2025 Glucose [Mass/Vol] 128 mg/dL High 70-99 [facility] Serum or plasma calcium danae urement (mass/volume)Ordered By: Melissa Reed on 02-20-2025 Calcium [Mass/Vol] 9.0 mg/dL 7.6-11.0 [facility] Serum or plasma urea nitroge n measurement (mass/volume)Ordered By: Melissa Reed on 02-20-2025 Urea nitrogen [Mass/Vol] 26 mg/dL High 4-19 [facility] Sodium levelOrdered By: Rubin Reed on 02-20-2025 Sodium [Moles/Vol] 140 mmol/L 133-145 [facility] Anion gap in Serum or Plasma Ordered By: Melissa Reed on 02-06-2025 Anion gap [Moles/Vol] 9 mmol/L - [facility] BUN/creatinine ratioOrdered By: Melissa Reed on 02-06-2025 Urea nitrogen/Creatinine [Mass ratio] 22.7 mg/mg High - [facility] Basic Metabolic Profile (BMP )on 02-06-2025 BUN/CRE 22.7 RATIO High - [facility] Comment on above: Order Comment: 157 Performed By: #### L 501.5200, L500.2500 #### [facility] [address] [place], [place], [id number] GAP 9 Normal - [facility] Comment on above: Order Comment: 157 Performed By: #### L 501.5200, L500.2500 #### [facility] [address] [place], [address] Potassium [Moles/Vol] 4.1 mmol/L Normal 3.3-5.1 [facility] Comment on above: Order Comment: 157 Performed By: #### L 501.5200, L500.2500 #### [facility] [address] [place], [address] Carbon dioxide, total [Moles /volume] in Central venous bloodOrdered By: Melissa Reed on 02-06-2025 CO2 [Moles/Vol] 28.5 mmol/L Normal 21.0-32.0 [facility] Comment on above: Order Comment: 157 Performed By: #### L 501.5200, L500.2500 #### [facility] [address] [place], [address] Chloride assayOrdered By: Sd Reed on 02-06-2025 Chloride [Moles/Vol] 102 mmol/L Normal 98-108 [facility] Comment on above: Order Comment: 157 Performed By: #### L 501.5200, L500.2500 #### [facility] [address] [place], [address] Glomerular filtration rate ( GFR) estimation/1.73 sq m using serum, plasma, or whole bOrdered By: Melissa Reed on 02-06-2025 GFR/1.73 sq M.predicted among non-blacks MDRD (S/P/Bld) [Vol rate/Area] 54 mL/min/{1.73_m2} Low >60 [facility] Comment on above: mL/min/1.73m2 CKD-EP I Creatinine Equation (2020) Order Comment: 157 Result Comment: mL/m in/1.73m2 CKD-EPI Creatinine Equation (2020) Performed By: #### L 501.5200, L500.2500 #### [facility] [address] [place], [address] Magnesiumon 02-06-2025 Magnesium [Mass/Vol] 2.1 mg/dL Normal 1.5-2.2 [facility] Comment on above: Order Comment: 157 Performed By: #### L 501.5200, L500.2500 #### [facility] [address] [place], [address] Magnesium measurement (mass/ volume)Ordered By: Melissa Reed on 02-06-2025 Magnesium (Unsp spec) [Mass/Vol] 2.1 mg/dL 1.5-2.2 [facility] Potassium measurement (mass/ volume)Ordered By: Melissabridgette Reed on 02-06-2025 Potassium (Unsp spec) [Mass/Vol] 4.1 mmol/L 3.3-5.1 [facility] Serum creatinine measurement (mass/volume)Ordered By: Melissabridgette Reed on 02-06-2025 Creatinine [Mass/Vol] 1.04 mg/dL Normal 0.70-1.20 [facility] Comment on above: Order Comment: 157 Performed By: #### L 501.5200, L500.2500 #### [facility] [address] [place], [address] Serum glucose measurement (m ass/volume)Ordered By: Melissa Reed on 02-06-2025 Glucose [Mass/Vol] 131 mg/dL High 70-99 [facility] Comment on above: Order Comment: 157 Performed By: #### L 501.5200, L500.2500 #### [facility] [address] [place], [address] Serum or plasma calcium danae urement (mass/volume)Ordered By: Melissa Reed on 02-06-2025 Calcium [Mass/Vol] 8.8 mg/dL Normal 7.6-11.0 [facility] Comment on above: Order Comment: 157 Performed By: #### L 501.5200, L500.2500 #### [facility] [address] [place], [address] Serum or plasma urea nitroge n measurement (mass/volume)Ordered By: Melissa Reed on 02-06-2025 Urea nitrogen [Mass/Vol] 24 mg/dL High 4-19 [facility] Comment on above: Order Comment: 157 Performed By: #### L 501.5200, L500.2500 #### [facility] [address] [place], [address] Sodium levelOrdered By: Rubin Reed on 02-06-2025 Sodium [Moles/Vol] 140 mmol/L Normal 133-145 [facility] Comment on above: Order Comment: 157 Performed By: #### L 501.5200, L500.2500 #### [facility] [address] [place], [address] Anion gap in Serum or Plasma Ordered By: Melissa Reed on 01-23-2025 Anion gap [Moles/Vol] 10 mmol/L 5-15 [facility] BUN/creatinine ratioOrdered By: Melissa Reed on 01-23-2025 Urea nitrogen/Creatinine [Mass ratio] 25.3 mg/mg High 10-20 [facility] Basic Metabolic Profile (BMP )on 01-23-2025 BUN/CRE 25.3 RATIO High 10-20 [facility] Comment on above: Order Comment: 157 Performed By: #### L 500.2500, L501.5200 #### [facility] [address] [place], [address] Calcium [Mass/Vol] 8.8 mg/dL Normal 7.6-11.0 [facility] Comment on above: Order Comment: 157 Performed By: #### L 500.2500, L501.5200 #### [facility] [address] [place], [address] Chloride [Moles/Vol] 102 mmol/L Normal 98-108 [facility] Comment on above: Order Comment: 157 Performed By: #### L 500.2500, L501.5200 #### [facility] [address] [place], [address] CO2 [Moles/Vol] 26.3 mmol/L Normal 21.0-32.0 [facility] Comment on above: Order Comment: 157 Performed By: #### L 500.2500, L501.5200 #### [facility] [address] [place], [address] Creatinine [Mass/Vol] 1.06 mg/dL Normal 0.70-1.20 [facility] Comment on above: Order Comment: 157 Performed By: #### L 500.2500, L501.5200 #### [facility] [address] [place], [address] GAP 10 Normal 5-15 [facility] Comment on above: Order Comment: 157 Performed By: #### L 500.2500, L501.5200 #### [facility] [address] [place], [address] GFR/1.73 sq M.predicted among non-blacks MDRD (S/P/Bld) [Vol rate/Area] 53 mL/min/{1.73_m2} Low >60 [facility] Comment on above: Order Comment: 157 Result Comment: mL/m in/1.73m2 CKD-EPI Creatinine Equation (2020) Performed By: #### L 500.2500, L501.5200 #### [facility] [address] [place], [address] Glucose [Mass/Vol] 139 mg/dL High 70-99 [facility] Comment on above: Order Comment: 157 Performed By: #### L 500.2500, L501.5200 #### [facility] [address] [place], [address] Potassium [Moles/Vol] 4.3 mmol/L Normal 3.3-5.1 [facility] Comment on above: Order Comment: 157 Result Comment: Hemo lysis present, Results??could be affected. ?? Performed By: #### L 500.2500, L501.5200 #### [facility] [address] [place], [address] Sodium [Moles/Vol] 138 mmol/L Normal 133-145 [facility] Comment on above: Order Comment: 157 Performed By: #### L 500.2500, L501.5200 #### [facility] [address] [place], [address] Urea nitrogen [Mass/Vol] 27 mg/dL High 4-19 [facility] Comment on above: Order Comment: 157 Performed By: #### L 500.2500, L501.5200 #### [facility] [address] [place], [address] Carbon dioxide, total [Moles /volume] in Central venous bloodOrdered By: Melissa Reed on 01-23-2025 CO2 [Moles/Vol] 26.3 mmol/L 21.0-32.0 [facility] Chloride assayOrdered By: Sd Reed on 01-23-2025 Chloride [Moles/Vol] 102 mmol/L 98-108 [facility] Glomerular filtration rate ( GFR) estimation/1.73 sq m using serum, plasma, or whole bOrdered By: Melissa Reed on 01-23-2025 GFR/1.73 sq M.predicted among non-blacks MDRD (S/P/Bld) [Vol rate/Area] 53 mL/min/{1.73_m2} Low >60 [facility] Comment on above: mL/min/1.73m2 CKD-EP I Creatinine Equation (2020) Magnesiumon 01-23-2025 Magnesium [Mass/Vol] 2.2 mg/dL Normal 1.5-2.2 [facility] Comment on above: Order Comment: 157 Performed By: #### L 500.2500, L501.5200 #### [facility] [address] [place], [address] Magnesium measurement (mass/ volume)Ordered By: Melissa Reed on 01-23-2025 Magnesium (Unsp spec) [Mass/Vol] 2.2 mg/dL 1.5-2.2 [facility] Potassium measurement (mass/ volume)Ordered By: Melissa Reed on 01-23-2025 Potassium (Unsp spec) [Mass/Vol] 4.3 mmol/L 3.3-5.1 [facility] Comment on above: Hemolysis present, R esults could be affected. Serum creatinine measurement (mass/volume)Ordered By: Melissa Reed on 01-23-2025 Creatinine [Mass/Vol] 1.06 mg/dL 0.70-1.20 [facility] Serum glucose measurement (m ass/volume)Ordered By: Melissa Reed on 01-23-2025 Glucose [Mass/Vol] 139 mg/dL High 70-99 [facility] Serum or plasma calcium danae urement (mass/volume)Ordered By: Melissa Reed on 01-23-2025 Calcium [Mass/Vol] 8.8 mg/dL 7.6-11.0 [facility] Serum or plasma urea nitroge n measurement (mass/volume)Ordered By: Melissa Reed on 01-23-2025 Urea nitrogen [Mass/Vol] 27 mg/dL High 4- [facility] Sodium levelOrdered By: Rubin Reed on 01-23-2025 Sodium [Moles/Vol] 138 mmol/L 133-145 [facility] Anion gap in Serum or Plasma Ordered By: Melissa Reed on 01-09-2025 Anion gap [Moles/Vol] 8 mmol/L - [facility] BUN/creatinine ratioOrdered By: Melissa Reed on 01-09-2025 Urea nitrogen/Creatinine [Mass ratio] 22.0 mg/mg High - [facility] Basic Metabolic Profile (BMP )on 01-09-2025 BUN/CRE 22.0 RATIO High 04-07 [facility] Comment on above: Performed By: #### L 500.2500, L501.5200 #### [facility] [place] [address] [address], [address] GAP 8 Normal 5-15 [facility] Comment on above: Performed By: #### L 500.2500, L501.5200 #### [facility] [address] [place], [address] Potassium [Moles/Vol] 4.5 mmol/L Normal 3.3-5.1 [facility] Comment on above: Result Comment: Hemo lysis present, Results??could be affected. ?? Performed By: #### L 500.2500, L501.5200 #### [facility] [address] [place], [address] Carbon dioxide, total [Moles /volume] in Central venous bloodOrdered By: Melissa Reed on 01-09-2025 CO2 [Moles/Vol] 29.7 mmol/L Normal 21.0-32.0 [facility] Comment on above: Performed By: #### L 500.2500, L501.5200 #### [facility] [address] [place], [address] Chloride assayOrdered By: Sd Reed on 01-09-2025 Chloride [Moles/Vol] 103 mmol/L Normal 98-108 [facility] Comment on above: Performed By: #### L 500.2500, L501.5200 #### [facility] [address] [place], [address] Glomerular filtration rate ( GFR) estimation/1.73 sq m using serum, plasma, or whole bOrdered By: Melissa Reed on 01-09-2025 GFR/1.73 sq M.predicted among non-blacks MDRD (S/P/Bld) [Vol rate/Area] 52 mL/min/{1.73_m2} Low >60 [facility] Comment on above: mL/min/1.73m2 CKD-EP I Creatinine Equation (2020) Result Comment: mL/m in/1.73m2 CKD-EPI Creatinine Equation (2020) Performed By: #### L 500.2500, L501.5200 #### [facility] [address] [place], [address] Magnesiumon 01-09-2025 Magnesium [Mass/Vol] 2.1 mg/dL Normal 1.5-2.2 [facility] Comment on above: Performed By: #### L 500.2500, L501.5200 #### [facility] [address] [place], [address] Magnesium measurement (mass/ volume)Ordered By: Melissa Reed on 01-09-2025 Magnesium (Unsp spec) [Mass/Vol] 2.1 mg/dL 1.5-2.2 [facility] Potassium measurement (mass/ volume)Ordered By: Melissa Reed on 01-09-2025 Potassium (Unsp spec) [Mass/Vol] 4.5 mmol/L 3.3-5.1 [facility] Comment on above: Hemolysis present, R esults could be affected. Serum creatinine measurement (mass/volume)Ordered By: Melissa Reed on 01-09-2025 Creatinine [Mass/Vol] 1.08 mg/dL Normal 0.70-1.20 [facility] Comment on above: Performed By: #### L 500.2500, L501.5200 #### [facility] [address] [place], [address] Serum glucose measurement (m ass/volume)Ordered By: Melissa Reed on 01-09-2025 Glucose [Mass/Vol] 78 mg/dL Normal 70-99 [facility] Comment on above: Performed By: #### L 500.2500, L501.5200 #### [facility] [address] [place], [address] Serum or plasma calcium danae urement (mass/volume)Ordered By: Melissa Reed on 01-09-2025 Calcium [Mass/Vol] 9.0 mg/dL Normal 7.6-11.0 [facility] Comment on above: Performed By: #### L 500.2500, L501.5200 #### [facility] [address] [place], [address] Serum or plasma urea nitroge n measurement (mass/volume)Ordered By: Melissa Reed on 01-09-2025 Urea nitrogen [Mass/Vol] 24 mg/dL High 4-19 [facility] Comment on above: Performed By: #### L 500.2500, L501.5200 #### [facility] [address] [place], [address] Sodium levelOrdered By: Rubin Reed on 01-09-2025 Sodium [Moles/Vol] 141 mmol/L Normal 133-145 [facility] Comment on above: Performed By: #### L 500.2500, L501.5200 #### [facility] [address] [place], [place], [id number] Urine Cultureon 12-27-2024 [facility] Copy of report sent to Infection Control [facility]inter [id number] 12/26/24 0739 FELICITAS. Urine Culture CALLED X2, RESULTS CALLED TO DIVYA AND LEFT VOICEMAIL MESSAGE WITH SCOTTY MUÑOZ 12/26/24 1983 Dora Platt. Escherichia coli [place] Count 50,000-80,000 MARKER ESBL producing OrganismA MARKER [...] Islt LAVINIA <=1 S Normal [facility] Comment on above: Performed By: #### L 500.2500, L501.5200 #### [facility] [address] [place], [address] Anion gap in Serum or Plasma Ordered By: Melissa Reed on 12-26-2024 Anion gap [Moles/Vol] 9 mmol/L - [facility] BUN/creatinine ratioOrdered By: Melissa Reed on 12-26-2024 Urea nitrogen/Creatinine [Mass ratio] 24.9 mg/mg High 04-07 [facility] Basic Metabolic Profile (BMP )on 12-26-2024 BUN/CRE 24.9 RATIO High 04-07 [facility] Comment on above: Order Comment: 157 Performed By: #### L 501.5200, L500.2500 #### [facility] [address] [place], [address] Calcium [Mass/Vol] 8.7 mg/dL Normal 7.6-11.0 [facility] Comment on above: Order Comment: 157 Performed By: #### L 501.5200, L500.2500 #### [facility] [address] [place], [address] Chloride [Moles/Vol] 103 mmol/L Normal 98-108 [facility] Comment on above: Order Comment: 157 Performed By: #### L 501.5200, L500.2500 #### [facility] [address] [place], [address] CO2 [Moles/Vol] 28.5 mmol/L Normal 21.0-32.0 [facility] Comment on above: Order Comment: 157 Performed By: #### L 501.5200, L500.2500 #### [facility] [address] [place], [address] Creatinine [Mass/Vol] 1.19 mg/dL Normal 0.70-1.20 [facility] Comment on above: Order Comment: 157 Performed By: #### L 501.5200, L500.2500 #### [facility] [address] [place], [address] GAP 9 Normal 5-15 [facility] Comment on above: Order Comment: 157 Performed By: #### L 501.5200, L500.2500 #### [facility] [address] [place], [address] GFR/1.73 sq M.predicted among non-blacks MDRD (S/P/Bld) [Vol rate/Area] 46 mL/min/{1.73_m2} Low >60 [facility] Comment on above: Order Comment: 157 Result Comment: mL/m in/1.73m2 CKD-EPI Creatinine Equation (2020) Performed By: #### L 501.5200, L500.2500 #### [facility] [address] [place], [address] Glucose [Mass/Vol] 162 mg/dL High 70-99 [facility] Comment on above: Order Comment: 157 Performed By: #### L 501.5200, L500.2500 #### [facility] [address] [place], [address] Potassium [Moles/Vol] 4.5 mmol/L Normal 3.3-5.1 [facility] Comment on above: Order Comment: 157 Performed By: #### L 501.5200, L500.2500 #### [facility] [address] [place], [address] Sodium [Moles/Vol] 141 mmol/L Normal 133-145 [facility] Comment on above: Order Comment: 157 Performed By: #### L 501.5200, L500.2500 #### [facility] [address] [place], [address] Urea nitrogen [Mass/Vol] 30 mg/dL High 4-19 [facility] Comment on above: Order Comment: 157 Performed By: #### L 501.5200, L500.2500 #### [facility] [address] [place], [address] Carbon dioxide, total [Moles /volume] in Central venous bloodOrdered By: Melissa Reed on 12-26-2024 CO2 [Moles/Vol] 28.5 mmol/L 21.0-32.0 [facility] Chloride assayOrdered By: Sd Reed on 12-26-2024 Chloride [Moles/Vol] 103 mmol/L 98-108 [facility] Glomerular filtration rate ( GFR) estimation/1.73 sq m using serum, plasma, or whole bOrdered By: Melissa Reed on 12-26-2024 GFR/1.73 sq M.predicted among non-blacks MDRD (S/P/Bld) [Vol rate/Area] 46 mL/min/{1.73_m2} Low >60 [facility] Comment on above: mL/min/1.73m2 CKD-EP I Creatinine Equation (2020) Magnesiumon 12-26-2024 Magnesium [Mass/Vol] 2.2 mg/dL Normal 1.5-2.2 [facility] Comment on above: Order Comment: 157 Performed By: #### L 501.5200, L500.2500 #### [facility] [address] [place], [place], [id number] Magnesium measurement (mass/ volume)Ordered By: Melissa Reed on 12-26-2024 Magnesium (Unsp spec) [Mass/Vol] 2.2 mg/dL 1.5-2.2 [facility] Potassium measurement (mass/ volume)Ordered By: Melissa Reed on 12-26-2024 Potassium (Unsp spec) [Mass/Vol] 4.5 mmol/L 3.3-5.1 [facility] Serum creatinine measurement (mass/volume)Ordered By: Melissa Reed on 12-26-2024 Creatinine [Mass/Vol] 1.19 mg/dL 0.70-1.20 [facility] Serum glucose measurement (m ass/volume)Ordered By: Melissa Reed on 12-26-2024 Glucose [Mass/Vol] 162 mg/dL High 70-99 [facility] Serum or plasma calcium danae urement (mass/volume)Ordered By: Melissa Reed on 12-26-2024 Calcium [Mass/Vol] 8.7 mg/dL 7.6-11.0 [facility] Serum or plasma urea nitroge n measurement (mass/volume)Ordered By: Melissa Reed on 12-26-2024 Urea nitrogen [Mass/Vol] 30 mg/dL High 4-19 [facility] Sodium levelOrdered By: Rubin Reed on 12-26-2024 Sodium [Moles/Vol] 141 mmol/L 133-145 [facility] Bilirubin Test strip Ql (U)O rdered By: Melissa Reed on 12-24-2024 Bilirubin Ql (U) Negative Negative [facility] Ketones Test strip Ql (U)Ord ered By: Melissa Reed on 12-24-2024 Ketones Ql (U) Negative Negative [facility] Microscopic analysis of urin e for red blood cells (RBC)Ordered By: Melissa Reed on 12-24-2024 Microscopic analysis of urine for red blood cells (RBC) 0 SEEN /hpf 0-5 [facility] Mucus LM Ql (Urine sed)Order ed By: Melissa Reed on 12-24-2024 Mucus Ql (Urine sed) 0 SEEN /hpf [facility] Nitrite Test strip Ql (U)Ord ered By: Melissa Reed on 12-24-2024 Nitrite Ql (U) Negative Negative [facility] Protein Test strip Ql (U)Ord ered By: Melissa Reed on 12-24-2024 Protein Ql (U) 15 mg/dl High Negative [facility] Squamous epithelial cells de tection in urine sediment by light microscopyOrdered By: Melissa Reed on 12-24-2024 Epithelial cells.squamous LM Ql (Urine sed) 0-5 SEEN /hpf 5-10 [facility] Urinalysis, Completeon 12-24 BACTERIA RARE Normal None Seen [facility] Comment on above: Order Comment: CLEAN CATCH Performed By: #### L 500.2500, L501.5200 #### [facility] [place] [address] [address] [place], [address] EPI,SQUAMOUS 0-5 SEEN Normal 5-10 [facility] Comment on above: Order Comment: CLEAN CATCH Performed By: #### L 500.2500, L501.5200 #### [facility] [address] [place], [address] Mucus Ql (Urine sed) 0 SEEN Normal [facility] Comment on above: Order Comment: CLEAN CATCH Performed By: #### L 500.2500, L501.5200 #### [facility] [address] [place], [address] RBC 0 SEEN Normal 0-5 [facility] Comment on above: Order Comment: CLEAN CATCH Performed By: #### L 500.2500, L501.5200 #### [facility] [address] [place], [address] WBC 0 SEEN Normal 0-5 [facility] Comment on above: Order Comment: CLEAN CATCH Performed By: #### L 500.2500, L501.5200 #### [facility] [address] [place], [address] Urine clarityOrdered By: Lillian Reed on 12-24-2024 Clarity (U) Clear Clear [facility] Urine color determinationOrd ered By: Melissa Reed on 12-24-2024 Color (U) Yellow Yellow [facility] Urine cultureOrdered By: Lillian Reed on 12-24-2024 Bacteria identified Cx Nom (U) Escherichia coli Abnormal [facility] Urine glucose detectionOrder ed By: Melissa Reed on 12-24-2024 Glucose Ql (U) Normal mg/dl Normal [facility] Urine leukocyte esterase det ection by dipstickOrdered By: Melissa Reed on 12-24-2024 Leukocyte esterase Test strip Ql (U) Negative Negative [facility] Urine pHOrdered By: Melissa kerr on 12-24-2024 pH (U) 7.0 [pH] 5.0 - 8.0 [facility] Urine sediment bacteria coun t by microscopy (number/high power field)Ordered By: Melissa Reed on 12-24-2024 Bacteria LM.HPF (Urine sed) [#/Area] RARE /hpf None Seen [facility] Urine specific gravity measu rementOrdered By: Melissa Reed on 12-24-2024 Specific gravity (U) [Rel density] 1.010 1.002-1.030 [facility] Urine urobilinogen measureme ntOrdered By: Melissa Reed on 12-24-2024 Urobilinogen Ql (U) Normal mg/dl Normal [facility] White blood cell countOrdere d By: Melissabridgette Reed on 12-24-2024 White blood cell count 0 SEEN /hpf 0-5 [facility] Anion gap in Serum or Plasma Ordered By: Melissa Reed on 12-12-2024 Anion gap [Moles/Vol] 9 mmol/L 5-15 [facility] BUN/creatinine ratioOrdered By: Melissa Reed on 12-12-2024 Urea nitrogen/Creatinine [Mass ratio] 28.8 mg/mg High 10-20 [facility] Basic Metabolic Profile (BMP )on 12-12-2024 BUN/CRE 28.8 RATIO High 10-20 [facility] Comment on above: Performed By: #### L 501.5200, L500.2500 ####[facility] [address] [place], [address] Calcium [Mass/Vol] 8.7 mg/dL Normal 7.6-11.0 [facility] Comment on above: Performed By: #### L 501.5200, L500.2500 ####[facility] [address] [place], [address] Chloride [Moles/Vol] 101 mmol/L Normal 98-108 [facility] Comment on above: Performed By: #### L 501.5200, L500.2500 ####[facility] [address] [place], [address] CO2 [Moles/Vol] 27.9 mmol/L Normal 21.0-32.0 [facility] Comment on above: Performed By: #### L 501.5200, L500.2500 ####[facility] [address] [place], [address] Creatinine [Mass/Vol] 0.98 mg/dL Normal 0.70-1.20 [facility] Comment on above: Performed By: #### L 501.5200, L500.2500 ####[facility] [address] [place], [address] GAP 9 Normal 5-15 [facility] Comment on above: Performed By: #### L 501.5200, L500.2500 ####[facility] [address] [place], [address] GFR/1.73 sq M.predicted among non-blacks MDRD (S/P/Bld) [Vol rate/Area] 58 mL/min/{1.73_m2} Low >60 [facility] Comment on above: Result Comment: mL/m in/1.73m2 CKD-EPI Creatinine Equation (2020) Performed By: #### L 501.5200, L500.2500 ####[facility] [address] [place], [address] Glucose [Mass/Vol] 148 mg/dL High 70-99 [facility] Comment on above: Performed By: #### L 501.5200, L500.2500 ####[facility] [address] [place], [address] Potassium [Moles/Vol] 4.0 mmol/L Normal 3.3-5.1 [facility] Comment on above: Performed By: #### L 501.5200, L500.2500 ####[facility] [address] [place], [address] Sodium [Moles/Vol] 139 mmol/L Normal 133-145 [facility] Comment on above: Performed By: #### L 501.5200, L500.2500 ####[facility] [address] [place], [address] Urea nitrogen [Mass/Vol] 28 mg/dL High 4-19 [facility] Comment on above: Performed By: #### L 501.5200, L500.2500 ####[facility] [address] [place], [address] Carbon dioxide, total [Moles /volume] in Central venous bloodOrdered By: Melissa Reed on 12-12-2024 CO2 [Moles/Vol] 27.9 mmol/L 21.0-32.0 [facility] Chloride assayOrdered By: Sd Reed on 12-12-2024 Chloride [Moles/Vol] 101 mmol/L 98-108 [facility] Glomerular filtration rate ( GFR) estimation/1.73 sq m using serum, plasma, or whole bOrdered By: Melissa Reed on 12-12-2024 GFR/1.73 sq M.predicted among non-blacks MDRD (S/P/Bld) [Vol rate/Area] 58 mL/min/{1.73_m2} Low >60 [facility] Comment on above: mL/min/1.73m2 CKD-EP I Creatinine Equation (2020) Magnesiumon 12-12-2024 Magnesium [Mass/Vol] 2.2 mg/dL Normal 1.5-2.2 [facility] Comment on above: Performed By: #### L 501.5200, L500.2500 ####[facility] [address] [place], [address] Magnesium measurement (mass/ volume)Ordered By: Melissa Reed on 12-12-2024 Magnesium (Unsp spec) [Mass/Vol] 2.2 mg/dL 1.5-2.2 [facility] Potassium measurement (mass/ volume)Ordered By: Melissa Reed on 12-12-2024 Potassium (Unsp spec) [Mass/Vol] 4.0 mmol/L 3.3-5.1 [facility] Serum creatinine measurement (mass/volume)Ordered By: Melissa Reed on 12-12-2024 Creatinine [Mass/Vol] 0.98 mg/dL 0.70-1.20 [facility] Serum glucose measurement (m ass/volume)Ordered By: Melissa Reed on 12-12-2024 Glucose [Mass/Vol] 148 mg/dL High 70-99 [facility] Serum or plasma calcium danae urement (mass/volume)Ordered By: Melissa Reed on 12-12-2024 Calcium [Mass/Vol] 8.7 mg/dL 7.6-11.0 [facility] Serum or plasma urea nitroge n measurement (mass/volume)Ordered By: Melissa Reed on 12-12-2024 Urea nitrogen [Mass/Vol] 28 mg/dL High 4-19 [facility] Sodium levelOrdered By: Rubin Reed on 12-12-2024 Sodium [Moles/Vol] 139 mmol/L 133-145 [facility] Anion gap in Serum or Plasma Ordered By: Melissa Reed on 11-28-2024 Anion gap [Moles/Vol] 11 mmol/L 5-15 [facility] BUN/creatinine ratioOrdered By: Melissa Reed on 11-28-2024 Urea nitrogen/Creatinine [Mass ratio] 28.8 mg/mg High 10- [facility] Basic Metabolic Profile (BMP )on 11-28-2024 BUN/CRE 28.8 RATIO High 04-07 [facility] Comment on above: Order Comment: 157 Performed By: #### L 501.5200, L500.2500 ####[facility] [address] [place], [address] Calcium [Mass/Vol] 9.5 mg/dL Normal 7.6-11.0 [facility] Comment on above: Order Comment: 157 Performed By: #### L 501.5200, L500.2500 ####[facility] [address] [place], [address] Chloride [Moles/Vol] 98 mmol/L Normal 98-108 [facility] Comment on above: Order Comment: 157 Performed By: #### L 501.5200, L500.2500 ####[facility] [address] [place], [address] CO2 [Moles/Vol] 29.5 mmol/L Normal 21.0-32.0 [facility] Comment on above: Order Comment: 157 Performed By: #### L 501.5200, L500.2500 ####[facility] [address] [place], [address] Creatinine [Mass/Vol] 1.21 mg/dL High 0.70-1.20 [facility] Comment on above: Order Comment: 157 Performed By: #### L 501.5200, L500.2500 ####[facility] [address] [place], [address] GAP 11 Normal 5-15 [facility] Comment on above: Order Comment: 157 Performed By: #### L 501.5200, L500.2500 ####[facility] [address] [place], [address] GFR/1.73 sq M.predicted among non-blacks MDRD (S/P/Bld) [Vol rate/Area] 45 mL/min/{1.73_m2} Low >60 [facility] Comment on above: Order Comment: 157 Result Comment: mL/m in/1.73m2 CKD-EPI Creatinine Equation (2020) Performed By: #### L 501.5200, L500.2500 ####[facility] [address] [place], [address] Glucose [Mass/Vol] 126 mg/dL High 70-99 [facility] Comment on above: Order Comment: 157 Performed By: #### L 501.5200, L500.2500 ####[facility] [address] [place], [address] Potassium [Moles/Vol] 4.2 mmol/L Normal 3.3-5.1 [facility] Comment on above: Order Comment: 157 Performed By: #### L 501.5200, L500.2500 ####[facility] [address] [place], [address] Sodium [Moles/Vol] 139 mmol/L Normal 133-145 [facility] Comment on above: Order Comment: 157 Performed By: #### L 501.5200, L500.2500 ####[facility] [address] [place], [address] Urea nitrogen [Mass/Vol] 35 mg/dL High 4-19 [facility] Comment on above: Order Comment: 157 Performed By: #### L 501.5200, L500.2500 ####[facility] [address] [place], [address] Carbon dioxide, total [Moles /volume] in Central venous bloodOrdered By: Melissa Reed on 11-28-2024 CO2 [Moles/Vol] 29.5 mmol/L 21.0-32.0 [facility] Chloride assayOrdered By: Sd Reed on 11-28-2024 Chloride [Moles/Vol] 98 mmol/L 98-108 [facility] Glomerular filtration rate ( GFR) estimation/1.73 sq m using serum, plasma, or whole bOrdered By: Melissa Reed on 11-28-2024 GFR/1.73 sq M.predicted among non-blacks MDRD (S/P/Bld) [Vol rate/Area] 45 mL/min/{1.73_m2} Low >60 [facility] Comment on above: mL/min/1.73m2 CKD-EP I Creatinine Equation (2020) Magnesiumon 11-28-2024 Magnesium [Mass/Vol] 2.4 mg/dL High 1.5-2.2 [facility] Comment on above: Order Comment: CLEAN CATCH Performed By: #### M 100.2200, [id number] #### [facility] [address] [place], [address] Magnesium measurement (mass/ volume)Ordered By: Melissa Reed on 11-28-2024 Magnesium (Unsp spec) [Mass/Vol] 2.4 mg/dL High 1.5-2.2 [facility] Potassium measurement (mass/ volume)Ordered By: Melissa Reed on 11-28-2024 Potassium (Unsp spec) [Mass/Vol] 4.2 mmol/L 3.3-5.1 [facility] Serum creatinine measurement (mass/volume)Ordered By: Melissa Reed on 11-28-2024 Creatinine [Mass/Vol] 1.21 mg/dL High 0.70-1.20 [facility] Serum glucose measurement (m ass/volume)Ordered By: Melissa Reed on 11-28-2024 Glucose [Mass/Vol] 126 mg/dL High 70-99 [facility] Serum or plasma calcium danae urement (mass/volume)Ordered By: Melissa Reed on 11-28-2024 Calcium [Mass/Vol] 9.5 mg/dL 7.6-11.0 [facility] Serum or plasma urea nitroge n measurement (mass/volume)Ordered By: Melissa Reed on 11-28-2024 Urea nitrogen [Mass/Vol] 35 mg/dL High 4-19 [facility] Sodium levelOrdered By: Rubin Reed on 11-28-2024 Sodium [Moles/Vol] 139 mmol/L 133-145 [facility] Anion gap in Serum or Plasma Ordered By: Melissa Reed on 11-14-2024 Anion gap [Moles/Vol] 9 mmol/L 5-15 [facility] BUN/creatinine ratioOrdered By: Melissa Reed on 11-14-2024 Urea nitrogen/Creatinine [Mass ratio] 21.3 mg/mg High - [facility] Basic Metabolic Profile (BMP )on 11-14-2024 BUN/CRE 21.3 RATIO High 04-07 [facility] Comment on above: Performed By: #### L 501.5200, L500.2500 #### [facility] [address] [place], [address] Calcium [Mass/Vol] 8.6 mg/dL Normal 7.6-11.0 [facility] Comment on above: Performed By: #### L 501.5200, L500.2500 #### [facility] [address] [place], [address] Chloride [Moles/Vol] 101 mmol/L Normal 98-108 [facility] Comment on above: Performed By: #### L 501.5200, L500.2500 #### [facility] [address] [place], [address] CO2 [Moles/Vol] 29.7 mmol/L Normal 21.0-32.0 [facility] Comment on above: Performed By: #### L 501.5200, L500.2500 #### [facility] [address] [place], [address] Creatinine [Mass/Vol] 1.04 mg/dL Normal 0.70-1.20 [facility] Comment on above: Performed By: #### L 501.5200, L500.2500 #### [facility] [address] [place], [address] GAP 9 Normal 5-15 [facility] Comment on above: Performed By: #### L 501.5200, L500.2500 #### [facility] [address] [place], [address] GFR/1.73 sq M.predicted among non-blacks MDRD (S/P/Bld) [Vol rate/Area] 54 mL/min/{1.73_m2} Low >60 [facility] Comment on above: Result Comment: mL/m in/1.73m2 CKD-EPI Creatinine Equation (2020) Performed By: #### L 501.5200, L500.2500 #### [facility] [address] [place], [address] Glucose [Mass/Vol] 179 mg/dL High 70-99 [facility] Comment on above: Performed By: #### L 501.5200, L500.2500 #### [facility] [address] [place], [address] Potassium [Moles/Vol] 4.1 mmol/L Normal 3.3-5.1 [facility] Comment on above: Performed By: #### L 501.5200, L500.2500 #### [facility] [address] [place], [address] Sodium [Moles/Vol] 140 mmol/L Normal 133-145 [facility] Comment on above: Performed By: #### L 501.5200, L500.2500 #### [facility] [address] [place], [address] Urea nitrogen [Mass/Vol] 22 mg/dL High 4-19 [facility] Comment on above: Performed By: #### L 501.5200, L500.2500 #### [facility] [address] [place], [address] Carbon dioxide, total [Moles /volume] in Central venous bloodOrdered By: Melissa Reed on 11-14-2024 CO2 [Moles/Vol] 29.7 mmol/L 21.0-32.0 [facility] Chloride assayOrdered By: Sd Reed on 11-14-2024 Chloride [Moles/Vol] 101 mmol/L 98-108 [facility] Glomerular filtration rate ( GFR) estimation/1.73 sq m using serum, plasma, or whole bOrdered By: Melissa Reed on 11-14-2024 GFR/1.73 sq M.predicted among non-blacks MDRD (S/P/Bld) [Vol rate/Area] 54 mL/min/{1.73_m2} Low >60 [facility] Comment on above: mL/min/1.73m2 CKD-EP I Creatinine Equation (2020) Magnesiumon 11-14-2024 Magnesium [Mass/Vol] 2.1 mg/dL Normal 1.5-2.2 [facility] Comment on above: Performed By: #### L 501.5200, L500.2500 #### [facility] [address] [place], [address] Magnesium measurement (mass/ volume)Ordered By: Melissa Reed on 11-14-2024 Magnesium (Unsp spec) [Mass/Vol] 2.1 mg/dL 1.5-2.2 [facility] Potassium measurement (mass/ volume)Ordered By: Melissa Reed on 11-14-2024 Potassium (Unsp spec) [Mass/Vol] 4.1 mmol/L 3.3-5.1 [facility] Serum creatinine measurement (mass/volume)Ordered By: Melissa Reed on 11-14-2024 Creatinine [Mass/Vol] 1.04 mg/dL 0.70-1.20 [facility] Serum glucose measurement (m ass/volume)Ordered By: Melissa Reed on 11-14-2024 Glucose [Mass/Vol] 179 mg/dL High 70-99 [facility] Serum or plasma calcium danae urement (mass/volume)Ordered By: Melissa Reed on 11-14-2024 Calcium [Mass/Vol] 8.6 mg/dL 7.6-11.0 [facility] Serum or plasma urea nitroge n measurement (mass/volume)Ordered By: Melissa Reed on 11-14-2024 Urea nitrogen [Mass/Vol] 22 mg/dL High 4-19 [facility] Sodium levelOrdered By: Rubin Reed on 11-14-2024 Sodium [Moles/Vol] 140 mmol/L 133-145 [facility] Anion gap in Serum or Plasma Ordered By: Melissa Reed on 11-08-2024 Anion gap [Moles/Vol] 10 mmol/L 5-15 [facility] BUN/creatinine ratioOrdered By: Melissa Reed on 11-08-2024 Urea nitrogen/Creatinine [Mass ratio] 24.4 mg/mg High 10-20 [facility] Basic Metabolic Profile (BMP )on 11-08-2024 BUN/CRE 24.4 RATIO High 10-20 [facility] Comment on above: Order Comment: CLEAN CATCH Performed By: #### M 100.2200, [id number] #### [facility] [address] [place], [address] Calcium [Mass/Vol] 8.8 mg/dL Normal 7.6-11.0 [facility] Comment on above: Order Comment: CLEAN CATCH Performed By: #### M 100.2200, [id number] #### [facility] [address] [place], [address] Chloride [Moles/Vol] 101 mmol/L Normal 98-108 [facility] Comment on above: Order Comment: CLEAN CATCH Performed By: #### M 100.2200, [id number] #### [facility] [address] [place], [address] CO2 [Moles/Vol] 28.3 mmol/L Normal 21.0-32.0 [facility] Comment on above: Order Comment: CLEAN CATCH Performed By: #### M 100.2200, [id number] #### [facility] [address] [place], [address] Creatinine [Mass/Vol] 1.08 mg/dL Normal 0.70-1.20 [facility] Comment on above: Order Comment: CLEAN CATCH Performed By: #### M 100.2200, [id number] #### [facility] [address] [place], [address] GAP 10 Normal 5-15 [facility] Comment on above: Order Comment: CLEAN CATCH Performed By: #### M 100.2200, [id number] #### [facility] [address] [place], [address] GFR/1.73 sq M.predicted among non-blacks MDRD (S/P/Bld) [Vol rate/Area] 52 mL/min/{1.73_m2} Low >60 [facility] Comment on above: Order Comment: CLEAN CATCH Result Comment: mL/m in/1.73m2 CKD-EPI Creatinine Equation (2020) Performed By: #### M 100.2200, [id number] #### [facility] [address] [place], [address] Glucose [Mass/Vol] 104 mg/dL High 70-99 [facility] Comment on above: Order Comment: CLEAN CATCH Performed By: #### M 100.2200, [id number] #### [facility] [address] [place], [address] Potassium [Moles/Vol] 3.6 mmol/L Normal 3.3-5.1 [facility] Comment on above: Order Comment: CLEAN CATCH Performed By: #### M 100.2200, [id number] #### [facility] [address] [place], [address] Sodium [Moles/Vol] 138 mmol/L Normal 133-145 [facility] Comment on above: Order Comment: CLEAN CATCH Performed By: #### M 100.2200, [id number] #### [facility] [address] [place], [address] Urea nitrogen [Mass/Vol] 26 mg/dL High 4-19 [facility] Comment on above: Order Comment: CLEAN CATCH Performed By: #### M 100.2200, [id number] #### [facility] [address] [place], [address] Bilirubin directOrdered By: Melissa Reed on 11-08-2024 Bilirubin.direct [Mass/Vol] 0.22 mg/dL 0.00-0.30 [facility] Bilirubin, totalOrdered By: Melissa Reed on 11-08-2024 Bilirubin [Mass/Vol] 0.46 mg/dL 0.00-1.30 [facility] CBC-Complete Blood Cnt No Di ffon 11-08-2024 Erythrocyte distribution width (RBC) [Ratio] 12.8 % Normal 11.6-14.6 [facility] Comment on above: Order Comment: CLEAN CATCH Performed By: #### M 100.2200, [id number] #### [facility] [address] [place], [address] Hematocrit (Bld) [Volume fraction] 36.6 % Low 37-47 [facility] Comment on above: Order Comment: CLEAN CATCH Performed By: #### M 100.2200, [id number] #### [facility] [address] [place], [address] Hemoglobin (Bld) [Mass/Vol] 11.6 g/dL Low 12.0-15.0 [facility] Comment on above: Order Comment: CLEAN CATCH Performed By: #### M 100.2200, [id number] #### [facility] [address] [place], [address] MCH (RBC) [Entitic mass] 30.9 pg Normal 27.0-32.0 [facility] Comment on above: Order Comment: CLEAN CATCH Performed By: #### M 100.2200, [id number] #### [facility] [address] [place], [address] MCHC (RBC) [Mass/Vol] 31.7 g/dL Low 32-36 [facility] Comment on above: Order Comment: CLEAN CATCH Performed By: #### M 100.2200, [id number] #### [facility] [address] [place], [address] MCV (RBC) [Entitic vol] 97.6 fL Normal 81-99 [facility] Comment on above: Order Comment: CLEAN CATCH Performed By: #### M 100.2200, [id number] #### [facility] [address] [place], [address] Platelet mean volume (Bld) [Entitic vol] 10.2 fL Normal 6.2-12.0 [facility] Comment on above: Order Comment: CLEAN CATCH Performed By: #### M 100.2200, [id number] #### [facility] [address] [place], [address] Platelets (Bld) [#/Vol] 228 10*3/uL Normal 150-450 [facility] Comment on above: Order Comment: CLEAN CATCH Performed By: #### M 100.2200, [id number] #### [facility] [address] [place], [address] RBC (Bld) [#/Vol] 3.75 10*6/uL Low 4.2-5.4 [facility] Comment on above: Order Comment: CLEAN CATCH Performed By: #### M 100.2200, [id number] #### [facility] [address] [place], [address] RDW SD 46.0 fl High 35.1-43.9 [facility] Comment on above: Order Comment: CLEAN CATCH Performed By: #### M 100.2200, [id number] #### [facility] [address] [place], [address] WBC (Bld) [#/Vol] 8.4 10*3/uL Normal 4.4-11.0 [facility] Comment on above: Order Comment: CLEAN CATCH Performed By: #### M 100.2200, [id number] #### [facility] [address] [place], [address] Carbon dioxide, total [Moles /volume] in Central venous bloodOrdered By: Melissa Reed on 11-08-2024 CO2 [Moles/Vol] 28.3 mmol/L 21.0-32.0 [facility] Chloride assayOrdered By: Sd Reed on 11-08-2024 Chloride [Moles/Vol] 101 mmol/L 98-108 [facility] Erythrocyte distribution wid th ratioOrdered By: Melissa Reed on 11-08-2024 Erythrocyte distribution width (RBC) [Ratio] 12.8 % 11.6-14.6 [facility] Erythrocyte distribution wid th standard deviationOrdered By: Melissa Reed on 11-08-2024 Erythrocyte distribution width (RBC) [Ratio] 46.0 fl High 35.1-43.9 [facility] Glomerular filtration rate ( GFR) estimation/1.73 sq m using serum, plasma, or whole bOrdered By: Melissa Reed on 11-08-2024 GFR/1.73 sq M.predicted among non-blacks MDRD (S/P/Bld) [Vol rate/Area] 52 mL/min/{1.73_m2} Low >60 [facility] Comment on above: mL/min/1.73m2 CKD-EP I Creatinine Equation (2020) Hematocrit Auto (Bld) [Volum e fraction]Ordered By: Melissa Reed on 11-08-2024 Hematocrit (Bld) [Volume fraction] 36.6 % Low 37-47 [facility] Hemoglobin measurementOrdere d By: Melissa Reed on 11-08-2024 Hemoglobin (Bld) [Mass/Vol] 11.6 g/dL Low 12.0-15.0 [facility] - Chemistry and C hemistry - challengeOrdered By: Melissa Reed on 11-08-2024 AST [Catalytic activity/Vol] 81 U/L High <32 [facility] Liver Profileon 11-08-2024 Albumin [Mass/Vol] 3.3 g/dL Low 3.4-4.8 [facility] Comment on above: Order Comment: CLEAN CATCH Performed By: #### M 100.2200, [id number] #### [facility] [address] [place], [place], [id number] ALK PHOS 110 U/L High 35-104 [facility] Comment on above: Order Comment: CLEAN CATCH Performed By: #### M 100.2200, [id number] #### [facility] [address] [place], [address] ALT [Catalytic activity/Vol] 87 U/L High <=34 [facility] Comment on above: Order Comment: CLEAN CATCH Performed By: #### M 100.2200, [id number] #### [facility] [address] [place], [address] AST [Catalytic activity/Vol] 81 U/L High <=31 [facility] Comment on above: Order Comment: CLEAN CATCH Performed By: #### M 100.2200, [id number] #### [facility] [address] [place], [address] Bilirubin [Mass/Vol] 0.46 mg/dL Normal 0.00-1.30 [facility] Comment on above: Order Comment: CLEAN CATCH Performed By: #### M 100.0, L400.0001 #### [facility] [address] [place], [address] Bilirubin.direct [Mass/Vol] 0.22 mg/dL Normal 0.00-0.30 [facility] Comment on above: Order Comment: CLEAN CATCH Performed By: #### M 100.0, L400.0001 #### [facility] [address] [place], [address] Globulin (S) [Mass/Vol] 2.9 g/dL Normal 2.2-4.2 [facility] Comment on above: Order Comment: CLEAN CATCH Performed By: #### M 100.2200, [id number] #### [facility] [address] [place], [address] T PROT 6.3 g/dL Normal 5.9-8.4 [facility] Comment on above: Order Comment: CLEAN CATCH Performed By: #### M 100.2200, [id number] #### [facility] [address] [place], [address] MCV (mean corpuscular volume ) determinationOrdered By: Melissa Reed on 11-08-2024 MCV (RBC) [Entitic vol] 97.6 fL 81-99 [facility] Magnesiumon 11-08-2024 Magnesium [Mass/Vol] 1.8 mg/dL Normal 1.5-2.2 [facility] Comment on above: Order Comment: CLEAN CATCH Performed By: #### M 100.2200, [id number] #### [facility] [address] [place], [address] Magnesium measurement (mass/ volume)Ordered By: Melissa Reed on 11-08-2024 Magnesium (Unsp spec) [Mass/Vol] 1.8 mg/dL 1.5-2.2 [facility] Mean corpuscular hemoglobin (MCH) determinationOrdered By: Melissa Reed on 11-08-2024 MCH (RBC) [Entitic mass] 30.9 pg 27.0-32.0 [facility] Mean corpuscular hemoglobin concentration (MCHC) determinationOrdered By: Melissa Reed on 11-08-2024 MCHC (RBC) [Mass/Vol] 31.7 g/dL Low 32-36 [facility] Mean platelet volume determi nationOrdered By: Melissa Reed on 11-08-2024 Platelet mean volume (Bld) [Entitic vol] 10.2 fL 6.2-12.0 [facility] Platelet countOrdered By: Sd Reed on 11-08-2024 Platelets (Bld) [#/Vol] 228 10*3/uL 150-450 [facility] Potassium measurement (mass/ volume)Ordered By: Melissa Reed on 11-08-2024 Potassium (Unsp spec) [Mass/Vol] 3.6 mmol/L 3.3-5.1 [facility] RBC Auto (Bld) [#/Vol]Ordere d By: Melissa Reed on 11-08-2024 RBC (Bld) [#/Vol] 3.75 10*6/uL Low 4.2-5.4 [facility] Serum creatinine measurement (mass/volume)Ordered By: Melissa Reed on 11-08-2024 Creatinine [Mass/Vol] 1.08 mg/dL 0.70-1.20 [facility] Serum globulin measurementOr dered By: Melissa Reed on 11-08-2024 Globulin (S) [Mass/Vol] 2.9 g/dL 2.2-4.2 [facility] Serum glucose measurement (m ass/volume)Ordered By: Melissa Reed on 11-08-2024 Glucose [Mass/Vol] 104 mg/dL High 70-99 [facility] Serum or plasma alanine bro otransferase (ALT) measurementOrdered By: Melissa Reed on 11-08-2024 ALT [Catalytic activity/Vol] 87 U/L High <35 [facility] Serum or plasma albumin danae urement (mass/volume)Ordered By: Melissa Reed on 11-08-2024 Albumin [Mass/Vol] 3.3 g/dL Low 3.4-4.8 [facility] Serum or plasma alkaline moustapha sphatase measurementOrdered By: Melissa Reed on 11-08-2024 ALP [Catalytic activity/Vol] 110 U/L High 35-104 [facility] Serum or plasma calcium danae urement (mass/volume)Ordered By: Melissa Reed on 11-08-2024 Calcium [Mass/Vol] 8.8 mg/dL 7.6-11.0 [facility] Serum or plasma urea nitroge n measurement (mass/volume)Ordered By: Melissa Reed on 11-08-2024 Urea nitrogen [Mass/Vol] 26 mg/dL High 4-19 [facility] Sodium levelOrdered By: Rubin Reed on 11-08-2024 Sodium [Moles/Vol] 138 mmol/L 133-145 [facility] Total proteinOrdered By: Lillian Reed on 11-08-2024 Protein [Mass/Vol] 6.3 g/dL 5.9-8.4 [facility] White blood cell (WBC) count Ordered By: Melissa Reed on 11-08-2024 WBC (Bld) [#/Vol] 8.4 10*3/uL 4.4-11.0 [facility] Anion gap in Serum or Plasma Ordered By: Melissa Reed on 10-17-2024 Anion gap [Moles/Vol] 9 mmol/L 5-15 [facility] BUN/creatinine ratioOrdered By: Melissa Reed on 10-17-2024 Urea nitrogen/Creatinine [Mass ratio] 28.5 mg/mg High 10-20 [facility] Basic Metabolic Profile (BMP )on 10-17-2024 BUN/CRE 28.5 RATIO High 10-20 [facility] Comment on above: Order Comment: CLEAN CATCH Performed By: #### M 100.2200, [id number] #### [facility] [address] [place], [address] Calcium [Mass/Vol] 8.7 mg/dL Normal 7.6-11.0 [facility] Comment on above: Order Comment: CLEAN CATCH Performed By: #### M 100.2200, [id number] #### [facility] [address] [place], [address] Chloride [Moles/Vol] 103 mmol/L Normal 98-108 [facility] Comment on above: Order Comment: CLEAN CATCH Performed By: #### M 100.2200, [id number] #### [facility] [address] [place], [address] CO2 [Moles/Vol] 28.9 mmol/L Normal 21.0-32.0 [facility] Comment on above: Order Comment: CLEAN CATCH Performed By: #### M 100.2200, [id number] #### [facility] [address] [place], [address] Creatinine [Mass/Vol] 1.04 mg/dL Normal 0.70-1.20 [facility] Comment on above: Order Comment: CLEAN CATCH Performed By: #### M 100.2200, [id number] #### [facility] [address] [place], [address] GAP 9 Normal 5-15 [facility] Comment on above: Order Comment: CLEAN CATCH Performed By: #### M 100.2200, [id number] #### [facility] [address] [place], [address] GFR/1.73 sq M.predicted among non-blacks MDRD (S/P/Bld) [Vol rate/Area] 54 mL/min/{1.73_m2} Low >60 [facility] Comment on above: Order Comment: CLEAN CATCH Result Comment: mL/m in/1.73m2 CKD-EPI Creatinine Equation (2020) Performed By: #### M 100.2200, [id number] #### [facility] [address] [place], [address] Glucose [Mass/Vol] 106 mg/dL High 70-99 [facility] Comment on above: Order Comment: CLEAN CATCH Performed By: #### M 100.2200, [id number] #### [facility] [address] [place], [address] Potassium [Moles/Vol] 3.8 mmol/L Normal 3.3-5.1 [facility] Comment on above: Order Comment: CLEAN CATCH Performed By: #### M 100.2200, [id number] #### [facility] [address] [place], [address] Sodium [Moles/Vol] 140 mmol/L Normal 133-145 [facility] Comment on above: Order Comment: CLEAN CATCH Performed By: #### M 100.2200, [id number] #### [facility] [address] [place], [address] Urea nitrogen [Mass/Vol] 30 mg/dL High 4-19 [facility] Comment on above: Order Comment: CLEAN CATCH Performed By: #### M 100.2200, [id number] #### [facility] [address] [place], [place], [id number] Carbon dioxide, total [Moles /volume] in Central venous bloodOrdered By: Melissa Reed on 10-17-2024 CO2 [Moles/Vol] 28.9 mmol/L 21.0-32.0 [facility] Chloride assayOrdered By: Sd Reed on 10-17-2024 Chloride [Moles/Vol] 103 mmol/L 98-108 [facility] Glomerular filtration rate ( GFR) estimation/1.73 sq m using serum, plasma, or whole bOrdered By: Melissa Reed on 10-17-2024 GFR/1.73 sq M.predicted among non-blacks MDRD (S/P/Bld) [Vol rate/Area] 54 mL/min/{1.73_m2} Low >60 [facility] Comment on above: mL/min/1.73m2 CKD-EP I Creatinine Equation (2020) Magnesiumon 10-17-2024 Magnesium [Mass/Vol] 2.3 mg/dL High 1.5-2.2 [facility] Comment on above: Order Comment: CLEAN CATCH Performed By: #### M 100.2200, [id number] #### [facility] [address] [place], [place], [id number] Magnesium measurement (mass/ volume)Ordered By: Melissa Reed on 10-17-2024 Magnesium (Unsp spec) [Mass/Vol] 2.3 mg/dL High 1.5-2.2 [facility] Potassium measurement (mass/ volume)Ordered By: Melissa Reed on 10-17-2024 Potassium (Unsp spec) [Mass/Vol] 3.8 mmol/L 3.3-5.1 [facility] Serum creatinine measurement (mass/volume)Ordered By: Melissa Reed on 10-17-2024 Creatinine [Mass/Vol] 1.04 mg/dL 0.70-1.20 [facility] Serum glucose measurement (m ass/volume)Ordered By: Melissa Reed on 10-17-2024 Glucose [Mass/Vol] 106 mg/dL High 70-99 [facility] Serum or plasma calcium danae urement (mass/volume)Ordered By: Melissa Reed on 10-17-2024 Calcium [Mass/Vol] 8.7 mg/dL 7.6-11.0 [facility] Serum or plasma urea nitroge n measurement (mass/volume)Ordered By: Melissa Reed on 10-17-2024 Urea nitrogen [Mass/Vol] 30 mg/dL High 4-19 [facility] Sodium levelOrdered By: Rubin Reed on 10-17-2024 Sodium [Moles/Vol] 140 mmol/L 133-145 [facility] Anion gap in Serum or Plasma Ordered By: Melissa Reed on 10-03-2024 Anion gap [Moles/Vol] 10 mmol/L 5-15 [facility] BUN/creatinine ratioOrdered By: Melissa Reed on 10-03-2024 Urea nitrogen/Creatinine [Mass ratio] 24.4 mg/mg High 10-20 [facility] Basic Metabolic Profile (BMP )on 10-03-2024 BUN/CRE 24.4 RATIO High 10-20 [facility] Comment on above: Order Comment: CLEAN CATCH Performed By: #### M 100.2200, [id number] #### [facility] [address] [place], [address] Calcium [Mass/Vol] 8.7 mg/dL Normal 7.6-11.0 [facility] Comment on above: Order Comment: CLEAN CATCH Performed By: #### M 100.2200, [id number] #### [facility] [address] [place], [address] Chloride [Moles/Vol] 102 mmol/L Normal 98-108 [facility] Comment on above: Order Comment: CLEAN CATCH Performed By: #### M 100.2200, [id number] #### [facility] [address] [place], [address] CO2 [Moles/Vol] 27.9 mmol/L Normal 21.0-32.0 [facility] Comment on above: Order Comment: CLEAN CATCH Performed By: #### M 100.2200, [id number] #### [facility] [address] [place], [address] Creatinine [Mass/Vol] 1.08 mg/dL Normal 0.70-1.20 [facility] Comment on above: Order Comment: CLEAN CATCH Performed By: #### M 100.2200, [id number] #### [facility] [address] [place], [address] GAP 10 Normal 5-15 [facility] Comment on above: Order Comment: CLEAN CATCH Performed By: #### M 100.0, L400.0001 #### [facility] [address] [place], [address] GFR/1.73 sq M.predicted among non-blacks MDRD (S/P/Bld) [Vol rate/Area] 52 mL/min/{1.73_m2} Low >60 [facility] Comment on above: Order Comment: CLEAN CATCH Result Comment: mL/m in/1.73m2 CKD-EPI Creatinine Equation (2020) Performed By: #### M 100.0, L400.0001 #### [facility] [address] [place], [address] Glucose [Mass/Vol] 179 mg/dL High 70-99 [facility] Comment on above: Order Comment: CLEAN CATCH Performed By: #### M 100.2200, [id number] #### [facility] [address] [place], [address] Potassium [Moles/Vol] 3.8 mmol/L Normal 3.3-5.1 [facility] Comment on above: Order Comment: CLEAN CATCH Performed By: #### M 100.2200, [id number] #### [facility] [address] [place], [address] Sodium [Moles/Vol] 139 mmol/L Normal 133-145 [facility] Comment on above: Order Comment: CLEAN CATCH Performed By: #### M 100.2200, [id number] #### [facility] [address] [place], [address] Urea nitrogen [Mass/Vol] 26 mg/dL High 4-19 [facility] Comment on above: Order Comment: CLEAN CATCH Performed By: #### M 100.2200, [id number] #### [facility] [address] [place], [address] Carbon dioxide, total [Moles /volume] in Central venous bloodOrdered By: Melissa Reed on 10-03-2024 CO2 [Moles/Vol] 27.9 mmol/L 21.0-32.0 [facility] Chloride assayOrdered By: Sd Reed on 10-03-2024 Chloride [Moles/Vol] 102 mmol/L 98-108 [facility] GFR/1.73 sq M.predicted denise g non-blacks MDRD (S/P/Bld) [Vol rate/Area]Ordered By: Melissa Reed on 10-03-2024 Estimated GFR (MDRD) Non-Af Amer 52 Low >60 [facility] Comment on above: mL/min/1.73m2 CKD-EP I Creatinine Equation (2020) Glomerular filtration rate ( GFR) estimation/1.73 sq m using serum, plasma, or whole bOrdered By: Melissa Reed on 10-03-2024 GFR/1.73 sq M.predicted among non-blacks MDRD (S/P/Bld) [Vol rate/Area] 52 mL/min/{1.73_m2} Low >60 [facility] Comment on above: mL/min/1.73m2 CKD-EP I Creatinine Equation (2020) Hemoglobin A1con 10-03-2024 HbA1c (Bld) [Mass fraction] 5.9 % High <=5.6 [facility] Comment on above: Order Comment: CLEAN CATCH Result Comment: Norm al < 5.7 % Prediabetic 5.7 - 6.4 % Diabetic >or= 6.5 % Please note range changes. Performed By: #### M 100.2200, L400.0001 #### [facility] [address] [place], [place], [address] Hemoglobin A1c percentageOrd ered By: Melissa Reed on 10-03-2024 HbA1c (Bld) [Mass fraction] 5.9 % High <5.7 [facility] Comment on above: Normal < 5.7 % Predi abetic 5.7 - 6.4 % Diabetic >or= 6.5 % Please note range changes. Magnesiumon 10-03-2024 Magnesium [Mass/Vol] 2.2 mg/dL Normal 1.5-2.2 [facility] Comment on above: Order Comment: CLEAN CATCH Performed By: #### M 100.2200, [id number] #### [facility] [address] [place], [place], [address] Magnesium (Unsp spec) [Mass/ Vol]Ordered By: Melissa Reed on 10-03-2024 Magnesium [Mass/Vol] 2.2 mg/dL 1.5-2.2 [facility] Magnesium measurement (mass/ volume)Ordered By: Melissa Reed on 10-03-2024 Magnesium (Unsp spec) [Mass/Vol] 2.2 mg/dL 1.5-2.2 [facility] Potassium (Unsp spec) [Mass/ Vol]Ordered By: Melissa Reed on 10-03-2024 Potassium [Moles/Vol] 3.8 mmol/L 3.3-5.1 [facility] Potassium measurement (mass/ volume)Ordered By: Melissa Reed on 10-03-2024 Potassium (Unsp spec) [Mass/Vol] 3.8 mmol/L 3.3-5.1 [facility] Serum creatinine measurement (mass/volume)Ordered By: Melissa Reed on 10-03-2024 Creatinine [Mass/Vol] 1.08 mg/dL 0.70-1.20 [facility] Serum glucose measurement (m ass/volume)Ordered By: Melissa Reed on 10-03-2024 Glucose [Mass/Vol] 179 mg/dL High 70-99 [facility] Serum or plasma calcium danae urement (mass/volume)Ordered By: Melissa Reed on 10-03-2024 Calcium [Mass/Vol] 8.7 mg/dL 7.6-11.0 [facility] Serum or plasma urea nitroge n measurement (mass/volume)Ordered By: Melissa Reed on 10-03-2024 Urea nitrogen [Mass/Vol] 26 mg/dL High 4-19 [facility] Sodium levelOrdered By: Rubin Reed on 10-03-2024 Sodium [Moles/Vol] 139 mmol/L 133-145 [facility] Urine Cultureon 09-26-2024 [facility] Results called on 09/26/24 by MARYLOU to [facility] (RIZWAN) . Copy of report sent to Infection Control Printer [id number] 09/25/24 1616 ASNIPES. ESBL Escherichia coli [place] Count 25,000-50,000 MARKER ESBL producing OrganismA MARKER [...] Islt LAVINIA <=1 S Normal [facility] Comment on above: Performed By: #### M 100.8440, L400.0001 #### [facility] [address] [place], [address] Bacteria LM.HPF (Urine sed) [#/Area]Ordered By: Melissa Reed on 09-23-2024 Urine Bacteria RARE /hpf None Seen [facility] Bilirubin Test strip Ql (U)O rdered By: Melissa Reed on 09-23-2024 Bilirubin Ql (U) Negative Negative [facility] Epithelial cells.squamous LM Ql (Urine sed)Ordered By: Melissa Reed on 09-23-2024 Epithelial cells.squamous LM.HPF (Urine sed) [#/Area] 0 /[HPF] 5-10 [facility] Glucose Ql (U)Ordered By: Sd Reed on 09-23-2024 Urine Glucose (UA) Normal mg/dl Normal [facility] Ketones Test strip Ql (U)Ord ered By: Melissa Reed on 09-23-2024 Ketones Ql (U) Negative Negative [facility] Microscopic analysis of urin e for red blood cells (RBC)Ordered By: Melissa Reed on 09-23-2024 Microscopic analysis of urine for red blood cells (RBC) 0 SEEN /hpf 0-5 [facility] Urine RBC 0 SEEN /hpf 0-5 [facility] Mucus LM Ql (Urine sed)Order ed By: Melissa Reed on 09-23-2024 Mucus Ql (Urine sed) 0 SEEN /hpf [facility] Nitrite Test strip Ql (U)Ord ered By: Melissa Reed on 09-23-2024 Nitrite Ql (U) Negative Negative [facility] Protein Test strip Ql (U)Ord ered By: Melissa Reed on 09-23-2024 Protein Ql (U) 30 mg/dl High Negative [facility] Squamous epithelial cells de tection in urine sediment by light microscopyOrdered By: Melissa Reed on 09-23-2024 Epithelial cells.squamous LM Ql (Urine sed) 0-5 SEEN /hpf 5-10 [facility] Urinalysis, Completeon 09-23 BACTERIA RARE Normal None Seen [facility] Comment on above: Order Comment: CLEAN CATCH Performed By: #### M 100.2200, [id number] #### [facility] [address] [place], [place], [id number] EPI,SQUAMOUS 0-5 SEEN Normal 5-10 [facility] Comment on above: Order Comment: CLEAN CATCH Performed By: #### M 100.2200, [id number] #### [facility] [address] [place], [address] WBC 50-100 SEEN Normal 0-5 [facility] Comment on above: Order Comment: CLEAN CATCH Performed By: #### M 100.2200, [id number] #### [facility] [address] [place], [address] Mucus Ql (Urine sed) 0 SEEN Normal [facility] Comment on above: Order Comment: CLEAN CATCH Performed By: #### M 100.2200, [id number] #### [facility] [address] [place], [address] RBC 0 SEEN Normal 0-5 [facility] Comment on above: Order Comment: CLEAN CATCH Performed By: #### M 100.2200, [id number] #### [facility] [address] [place], [address] Urine blood detectionOrdered By: Melissa Reed on 09-23-2024 Urine Occult Blood 25 /ul High Negative [facility] Urine clarityOrdered By: Lillian Reed on 09-23-2024 Clarity (U) Sl. Cloudy Clear [facility] Urine color determinationOrd ered By: Melissa Reed on 09-23-2024 Color (U) Yellow Yellow [facility] Urine cultureOrdered By: Lillian Reed on 09-23-2024 Bacteria identified Cx Nom (U) ESBL Escherichia coli Abnormal [facility] Urine glucose detectionOrder ed By: Melissa Reed on 09-23-2024 Glucose Ql (U) Normal mg/dl Normal [facility] Urine leukocyte esterase det ection by dipstickOrdered By: Melissa Reed on 09-23-2024 Leukocyte esterase Test strip Ql (U) 500 /ul High Negative [facility] Urine pHOrdered By: Melissa kerr on 09-23-2024 pH (U) 6.0 [pH] 5.0 - 8.0 [facility] Urine sediment bacteria coun t by microscopy (number/high power field)Ordered By: Melissa Reed on 09-23-2024 Bacteria LM.HPF (Urine sed) [#/Area] RARE /hpf None Seen [facility] Urine specific gravity measu rementOrdered By: Melissa Reed on 09-23-2024 Specific gravity (U) [Rel density] 1.015 1.002-1.030 [facility] Urine urobilinogen measureme ntOrdered By: Melissa Rede on 09-23-2024 Urobilinogen Ql (U) Normal mg/dl Normal [facility] Urobilinogen Ql (U)Ordered B y: Melissa Reed on 09-23-2024 Urine Urobilinogen Normal mg/dl Normal [facility] White blood cell countOrdere d By: Melissa Reed on 09-23-2024 Urine WBC 50-100 SEEN /hpf 0-5 [facility] White blood cell count 50-100 SEEN /hpf 0-5 [facility] Anion gap in Serum or Plasma Ordered By: Melissa Reed on 09-19-2024 Anion gap [Moles/Vol] 9 mmol/L 5-15 [facility] BUN/creatinine ratioOrdered By: Melissa Reed on 09-19-2024 Urea nitrogen/Creatinine [Mass ratio] 30.0 mg/mg High 10-20 [facility] Basic Metabolic Profile (BMP )on 09-19-2024 BUN/CRE 30.0 RATIO High [facility]20 [facility] Comment on above: Order Comment: 157 Performed By: #### L 501.5200, L500.2500 #### [facility] [address] [place], [address] Calcium [Mass/Vol] 8.6 mg/dL Normal 7.6-11.0 [facility] Comment on above: Order Comment: 157 Performed By: #### L 501.5200, L500.2500 #### [facility] [address] [place], [address] Chloride [Moles/Vol] 103 mmol/L Normal 98-108 [facility] Comment on above: Order Comment: 157 Performed By: #### L 501.5200, L500.2500 #### [facility] [address] [place], [address] CO2 [Moles/Vol] 27.2 mmol/L Normal 21.0-32.0 [facility] Comment on above: Order Comment: 157 Performed By: #### L 501.5200, L500.2500 #### [facility] [address] [place], [address] Creatinine [Mass/Vol] 1.13 mg/dL Normal 0.70-1.20 [facility] Comment on above: Order Comment: 157 Performed By: #### L 501.5200, L500.2500 #### [facility] [address] [place], [address] GAP 9 Normal 5-15 [facility] Comment on above: Order Comment: 157 Performed By: #### L 501.5200, L500.2500 #### [facility] [address] [place], [address] GFR/1.73 sq M.predicted among non-blacks MDRD (S/P/Bld) [Vol rate/Area] 49 mL/min/{1.73_m2} Low >60 [facility] Comment on above: Order Comment: 157 Result Comment: mL/m in/1.73m2 CKD-EPI Creatinine Equation (2020) Performed By: #### L 501.5200, L500.2500 #### [facility] [address] [place], [address] Glucose [Mass/Vol] 165 mg/dL High 70-99 [facility] Comment on above: Order Comment: 157 Performed By: #### L 501.5200, L500.2500 #### [facility] [address] [place], [address] Potassium [Moles/Vol] 4.0 mmol/L Normal 3.3-5.1 [facility] Comment on above: Order Comment: 157 Performed By: #### L 501.5200, L500.2500 #### [facility] [address] [place], [address] Sodium [Moles/Vol] 140 mmol/L Normal 133-145 [facility] Comment on above: Order Comment: 157 Performed By: #### L 501.5200, L500.2500 #### [facility] [address] [place], [address] Urea nitrogen [Mass/Vol] 34 mg/dL High 4-19 [facility] Comment on above: Order Comment: 157 Performed By: #### L 501.5200, L500.2500 #### [facility] [address] [place], [address] Carbon dioxide, total [Moles /volume] in Central venous bloodOrdered By: Melissa Reed on 09-19-2024 CO2 [Moles/Vol] 27.2 mmol/L 21.0-32.0 [facility] Chloride assayOrdered By: Sd Reed on 09-19-2024 Chloride [Moles/Vol] 103 mmol/L 98-108 [facility] GFR/1.73 sq M.predicted denise g non-blacks MDRD (S/P/Bld) [Vol rate/Area]Ordered By: Melissa Reed on 09-19-2024 Estimated GFR (MDRD) Non-Af Amer 49 Low >60 [facility] Comment on above: mL/min/1.73m2 CKD-EP I Creatinine Equation (2020) Glomerular filtration rate ( GFR) estimation/1.73 sq m using serum, plasma, or whole bOrdered By: Melissa Reed on 09-19-2024 GFR/1.73 sq M.predicted among non-blacks MDRD (S/P/Bld) [Vol rate/Area] 49 mL/min/{1.73_m2} Low >60 [facility] Comment on above: mL/min/1.73m2 CKD-EP I Creatinine Equation (2020) Magnesiumon 09-19-2024 Magnesium [Mass/Vol] 2.2 mg/dL Normal 1.5-2.2 [facility] Comment on above: Order Comment: 157 Performed By: #### L 501.5200, L500.2500 #### [facility] [address] [place], [address] Magnesium (Unsp spec) [Mass/ Vol]Ordered By: Melissa Reed on 09-19-2024 Magnesium [Mass/Vol] 2.2 mg/dL 1.5-2.2 [facility] Magnesium measurement (mass/ volume)Ordered By: Melissa Reed on 09-19-2024 Magnesium (Unsp spec) [Mass/Vol] 2.2 mg/dL 1.5-2.2 [facility] Potassium (Unsp spec) [Mass/ Vol]Ordered By: Melissa Reed on 09-19-2024 Potassium [Moles/Vol] 4.0 mmol/L 3.3-5.1 [facility] Potassium measurement (mass/ volume)Ordered By: Melissa Reed on 09-19-2024 Potassium (Unsp spec) [Mass/Vol] 4.0 mmol/L 3.3-5.1 [facility] Serum creatinine measurement (mass/volume)Ordered By: Melissa Reed on 09-19-2024 Creatinine [Mass/Vol] 1.13 mg/dL 0.70-1.20 [facility] Serum glucose measurement (m ass/volume)Ordered By: Melissa Reed on 09-19-2024 Glucose [Mass/Vol] 165 mg/dL High 70-99 [facility] Serum or plasma calcium danae urement (mass/volume)Ordered By: Melissa Reed on 09-19-2024 Calcium [Mass/Vol] 8.6 mg/dL 7.6-11.0 [facility] Serum or plasma urea nitroge n measurement (mass/volume)Ordered By: Melissa Reed on 09-19-2024 Urea nitrogen [Mass/Vol] 34 mg/dL High 4-19 [facility] Sodium levelOrdered By: Rubin Reed on 09-19-2024 Sodium [Moles/Vol] 140 mmol/L 133-145 [facility] Urine Cultureon 09-19-[address] [facility] REPOR T ESCHERICHIA COLI [...] to Infection Control Printer [id number] 09/08/24 0701 NELLYLuis. ESBL Escherichia coli [place] Count >100,000 MARKER Possible Carbapenemase producing EnterobacteriaceaeA [...] Islt LAVINIA <=1 S Normal [facility] Comment on above: Performed By: #### M 100.2200, [id number] #### [facility] [address] [place], [place], [id number] Urinalysis, Completeon 09-06 EPI,TRANSITION 0-5 SEEN Normal 0-5 [facility] Comment on above: Order Comment: CLEAN CATCH Performed By: #### M 100.2200, [id number] #### [facility] [address] [place], [address] BACTERIA 3+ /hpf Normal None Seen [facility] Comment on above: Order Comment: CLEAN CATCH Performed By: #### M 100.2200, [id number] #### [facility] [address] [place], [address] EPI,SQUAMOUS 5-10 SEEN Normal 5-10 [facility] Comment on above: Order Comment: CLEAN CATCH Performed By: #### M 100.2200, [id number] #### [facility] [address] [place], [address] RBC 0-5 SEEN Normal 0-5 [facility] Comment on above: Order Comment: CLEAN CATCH Performed By: #### M 100.2200, [id number] #### [facility] [address] [place], [address] WBC 25-50 SEEN Normal 0-5 [facility] Comment on above: Order Comment: CLEAN CATCH Performed By: #### M 100.2200, [id number] #### [facility] [address] [place], [address] Mucus Ql (Urine sed) 0 SEEN Normal [facility] Comment on above: Order Comment: CLEAN CATCH Performed By: #### M 100.2200, [id number] #### [facility] [address] [place], [address] Bilirubin Test strip Ql (U)O rdered By: Melissa Reed on 09-05-2024 Bilirubin Ql (U) Negative Negative [facility] Epithelial cells.squamous LM Ql (Urine sed)Ordered By: Melissa Reed on 09-05-2024 Epithelial cells.squamous LM.HPF (Urine sed) [#/Area] 5 /[HPF] 5-10 [facility] Glucose Ql (U)Ordered By: Sd Reed on 09-05-2024 Urine Glucose (UA) Normal mg/dl Normal [facility] Ketones Test strip Ql (U)Ord ered By: Melissa Reed on 09-05-2024 Ketones Ql (U) Negative Negative [facility] Microscopic analysis of urin e for red blood cells (RBC)Ordered By: Melissa Reed on 09-05-2024 Microscopic analysis of urine for red blood cells (RBC) 0-5 SEEN /hpf 0-5 [facility] Urine RBC 0-5 SEEN /hpf 0-5 [facility] Mucus LM Ql (Urine sed)Order ed By: Melissa Reed on 09-05-2024 Mucus Ql (Urine sed) 0 SEEN /hpf [facility] Nitrite Test strip Ql (U)Ord ered By: Melissa Reed on 09-05-2024 Nitrite Ql (U) Positive High Negative [facility] Protein Test strip Ql (U)Ord ered By: Melissa Reed on 09-05-2024 Protein Ql (U) 30 mg/dl High Negative [facility] Squamous epithelial cells de tection in urine sediment by light microscopyOrdered By: Melissa Reed on 09-05-2024 Epithelial cells.squamous LM Ql (Urine sed) 5-10 SEEN /hpf 5-10 [facility] Transitional cells LM Ql (Ur ine sed)Ordered By: Melissa Reed on 09-05-2024 Urine Transitional Epithelial Cells 0-5 SEEN /hpf 0-5 [facility] Transitional cells detection in urine sediment by light microscopyOrdered By: Melissa Reed on 09-05-2024 Transitional cells LM Ql (Urine sed) 0-5 SEEN /hpf 0-5 [facility] Urine blood detectionOrdered By: Melissa Reed on 09-05-2024 Urine Occult Blood 10 /ul High Negative [facility] Urine clarityOrdered By: Lillian Reed on 09-05-2024 Clarity (U) Sl. Cloudy Clear [facility] Urine color determinationOrd ered By: Melissa Reed on 09-05-2024 Color (U) Yellow Yellow [facility] Urine cultureOrdered By: Lillian Reed on 09-05-2024 Bacteria identified Cx Nom (U) ESBL Escherichia coli Abnormal [facility] Urine glucose detectionOrder ed By: Melissa Reed on 09-05-2024 Glucose Ql (U) Normal mg/dl Normal [facility] Urine leukocyte esterase det ection by dipstickOrdered By: Melissa Reed on 09-05-2024 Leukocyte esterase Test strip Ql (U) 500 /ul High Negative [facility] Urine pHOrdered By: Melissa kerr on 09-05-2024 pH (U) 6.5 [pH] 5.0 - 8.0 [facility] Urine sediment bacteria coun t by microscopy (number/high power field)Ordered By: Melissa Reed on 09-05-2024 Bacteria LM.HPF (Urine sed) [#/Area] 3 /[HPF] None Seen [facility] Urine specific gravity measu rementOrdered By: Melissa Reed on 09-05-2024 Specific gravity (U) [Rel density] 1.015 1.002-1.030 [facility] Urine urobilinogen measureme ntOrdered By: Melissa Reed on 09-05-2024 Urobilinogen Ql (U) Normal mg/dl Normal [facility] Urobilinogen Ql (U)Ordered B y: Melissa Reed on 09-05-2024 Urine Urobilinogen Normal mg/dl Normal [facility] White blood cell countOrdere d By: Melissa Reed on 09-05-2024 Urine WBC 25-50 SEEN /hpf 0-5 [facility] White blood cell count 25-50 SEEN /hpf 0-5 [facility] Anion gap in Serum or Plasma Ordered By: Melissa Reed on 08-22-2024 Anion gap [Moles/Vol] 11 mmol/L 5- [facility] BUN/creatinine ratioOrdered By: Melissa Reed on 08-22-2024 Urea nitrogen/Creatinine [Mass ratio] 21.6 mg/mg High 04-07 [facility] Basic Metabolic Profile (BMP )on 08-22-2024 BUN/CRE 21.6 RATIO High 04-07 [facility] Comment on above: Performed By: #### L 501.5200, L500.2500 #### [facility] [place] [address] [address] [place], [address] Calcium [Mass/Vol] 8.8 mg/dL Normal 7.6-11.0 [facility] Comment on above: Performed By: #### L 501.5200, L500.2500 #### [facility] [address] [place], [address] Chloride [Moles/Vol] 103 mmol/L Normal 98-108 [facility] Comment on above: Performed By: #### L 501.5200, L500.2500 #### [facility] [address] [place], [address] CO2 [Moles/Vol] 24.4 mmol/L Normal 21.0-32.0 [facility] Comment on above: Performed By: #### L 501.5200, L500.2500 #### [facility] [address] [place], [address] Creatinine [Mass/Vol] 1.14 mg/dL Normal 0.70-1.20 [facility] Comment on above: Performed By: #### L 501.5200, L500.2500 #### [facility] [address] [place], [address] GAP 11 Normal 5-15 [facility] Comment on above: Performed By: #### L 501.5200, L500.2500 #### [facility] [address] [place], [address] GFR/1.73 sq M.predicted among non-blacks MDRD (S/P/Bld) [Vol rate/Area] 49 mL/min/{1.73_m2} Low >60 [facility] Comment on above: Result Comment: mL/m in/1.73m2 CKD-EPI Creatinine Equation (2020) Performed By: #### L 501.5200, L500.2500 #### [facility] [address] [place], [address] Glucose [Mass/Vol] 104 mg/dL High 70-99 [facility] Comment on above: Performed By: #### L 501.5200, L500.2500 #### [facility] [address] [place], [address] Potassium [Moles/Vol] 4.1 mmol/L Normal 3.3-5.1 [facility] Comment on above: Result Comment: Hemo lysis present, Results??could be affected. ?? Performed By: #### L 501.5200, L500.2500 #### [facility] [address] [place], [address] Sodium [Moles/Vol] 138 mmol/L Normal 133-145 [facility] Comment on above: Performed By: #### L 501.5200, L500.2500 #### [facility] [address] [place], [address] Urea nitrogen [Mass/Vol] 25 mg/dL High 4-19 [facility] Comment on above: Performed By: #### L 501.5200, L500.2500 #### [facility] [address] [place], [address] Carbon dioxide, total [Moles /volume] in Central venous bloodOrdered By: Melissa Reed on 08-22-2024 CO2 [Moles/Vol] 24.4 mmol/L 21.0-32.0 [facility] Chloride assayOrdered By: Sd Reed on 08-22-2024 Chloride [Moles/Vol] 103 mmol/L 98-108 [facility] GFR/1.73 sq M.predicted denise g non-blacks MDRD (S/P/Bld) [Vol rate/Area]Ordered By: Melissa Reed on 08-22-2024 Estimated GFR (MDRD) Non-Af Amer 49 Low >60 [facility] Comment on above: mL/min/1.73m2 CKD-EP I Creatinine Equation (2020) Glomerular filtration rate ( GFR) estimation/1.73 sq m using serum, plasma, or whole bOrdered By: Melissa Reed on 08-22-2024 GFR/1.73 sq M.predicted among non-blacks MDRD (S/P/Bld) [Vol rate/Area] 49 mL/min/{1.73_m2} Low >60 [facility] Comment on above: mL/min/1.73m2 CKD-EP I Creatinine Equation (2020) Magnesiumon 08-22-2024 Magnesium [Mass/Vol] 2.3 mg/dL High 1.5-2.2 [facility] Comment on above: Performed By: #### L 501.5200, L500.2500 #### [facility] [address] [place], [place], [id number] Magnesium (Unsp spec) [Mass/ Vol]Ordered By: Melissa Reed on 08-22-2024 Magnesium [Mass/Vol] 2.3 mg/dL High 1.5-2.2 [facility] Magnesium measurement (mass/ volume)Ordered By: Melissa Reed on 08-22-2024 Magnesium (Unsp spec) [Mass/Vol] 2.3 mg/dL High 1.5-2.2 [facility] Potassium (Unsp spec) [Mass/ Vol]Ordered By: Melissa Reed on 08-22-2024 Potassium [Moles/Vol] 4.1 mmol/L 3.3-5.1 [facility] Comment on above: Hemolysis present, R esults could be affected. Potassium measurement (mass/ volume)Ordered By: Melissa Reed on 08-22-2024 Potassium (Unsp spec) [Mass/Vol] 4.1 mmol/L 3.3-5.1 [facility] Comment on above: Hemolysis present, R esults could be affected. Serum creatinine measurement (mass/volume)Ordered By: Melissa Reed on 08-22-2024 Creatinine [Mass/Vol] 1.14 mg/dL 0.70-1.20 [facility] Serum glucose measurement (m ass/volume)Ordered By: Melissa Reed on 08-22-2024 Glucose [Mass/Vol] 104 mg/dL High 70-99 [facility] Serum or plasma calcium danae urement (mass/volume)Ordered By: Melissa Reed on 08-22-2024 Calcium [Mass/Vol] 8.8 mg/dL 7.6-11.0 [facility] Serum or plasma urea nitroge n measurement (mass/volume)Ordered By: Melissa Reed on 08-22-2024 Urea nitrogen [Mass/Vol] 25 mg/dL High 4-19 [facility] Sodium levelOrdered By: Rubin Reed on 08-22-2024 Sodium [Moles/Vol] 138 mmol/L 133-145 [facility] Urine Cultureon 08-10-2024 [facility] Copy of report sent to Infection Control Printer [id number] 08/10/24 0702 MARYLOU. ESBL Escherichia coli [place] Count 80,000-100,000 ESBL Escherichia coli: REACTION Ampicillin [...] Islt LAVINIA <=1 S Normal [facility] Comment on above: Performed By: #### L 500.2500, L501.5200 #### [facility] [address] [place], [place], [id number] Basic Metabolic Profile (BMP )on 08-08-2024 BUN/CRE 27.6 RATIO High 10- [facility] Comment on above: Performed By: #### L 500.2500, L501.5200 #### [facility] [address] [place], [place], [id number] CA,Total 8.6 mg/dL Normal 8.5-10.1 [facility] Comment on above: Performed By: #### L 500.2500, L501.5200 #### [facility] [address] [place], [address] Chloride [Moles/Vol] 103 mmol/L Normal 98-107 [facility] Comment on above: Performed By: #### L 500.2500, L501.5200 #### [facility] [address] [place], [address] CO2 [Moles/Vol] 31.0 mmol/L Normal 21.0-32.0 [facility] Comment on above: Performed By: #### L 500.2500, L501.5200 #### [facility] [address] [place], [address] Creatinine [Mass/Vol] 1.23 mg/dL High 0.55-1.02 [facility] Comment on above: Result Comment: The validity of the calculated GFR GFRAA in patients over 70 years has not been determined. Clinical correlation is essential. Performed By: #### L 500.2500, L501.5200 #### [facility] [address] [place], [address] EST GFR - AA 54 mL/min Low >60 [facility] Comment on above: Result Comment: Afri can Cypriot GFR Calc Performed By: #### L 500.2500, L501.5200 #### [facility] [address] [place], [address] GAP 4 Low 5-15 [facility] Comment on above: Performed By: #### L 500.2500, L501.5200 #### [facility] [address] [place], [address] GFR/1.73 sq M.predicted among non-blacks MDRD (S/P/Bld) [Vol rate/Area] 45 mL/min/{1.73_m2} Low >60 [facility] Comment on above: Result Comment: Non- GFR Calc Performed By: #### L 500.2500, L501.5200 #### [facility] [address] [place], [address] Glucose [Mass/Vol] 192 mg/dL High 74-106 [facility] Comment on above: Result Comment: Fast ing Glucose result greater than or equal to 126 mg/dL suggests DIABETES MELLITUS per A.D.A. criteria. Performed By: #### L 500.2500, L501.5200 #### [facility] [address] [place], [address] Potassium [Moles/Vol] 4.1 mmol/L Normal 3.5-5.1 [facility] Comment on above: Performed By: #### L 500.2500, L501.5200 #### [facility] [address] [place], [address] Sodium [Moles/Vol] 138 mmol/L Normal 136-145 [facility] Comment on above: Performed By: #### L 500.2500, L501.5200 #### [facility] [address] [place], [address] Urea nitrogen [Mass/Vol] 34 mg/dL High 7-18 [facility] Comment on above: Performed By: #### L 500.2500, L501.5200 #### [facility] [address] [place], [address] Blood urea nitrogen (BUN)/cr eatinine ratioOrdered By: Melissa Reed on 08-08-2024 Urea nitrogen/Creatinine [Mass ratio] 27.6 mg/mg High 10-20 [facility] Carbon dioxide measurementOr dered By: Melissa Reed on 08-08-2024 CO2 [Moles/Vol] 31.0 mmol/L 21.0-32.0 [facility] Chloride measurementOrdered By: Melissa Reed on 08-08-2024 Chloride [Moles/Vol] 103 mmol/L 98-107 [facility] Estimated glomerular filtrat ion rate (GFR) AmericanOrdered By: Melissa Reed on 08-08-2024 Estimated GFR (MDRD) Amer 54 mL/min Low >60 [facility] Comment on above: GFR Calc Glomerular filtration rate ( GFR) estimationOrdered By: Melissa Reed on 08-08-2024 Estimated GFR (MDRD) Non-Af Amer 45 mL/min Low >60 [facility] Comment on above: Non- GFR Calc GFR/1.73 sq M.predicted among non-blacks MDRD (S/P/Bld) [Vol rate/Area] 45 mL/min/{1.73_m2} Low >60 [facility] Comment on above: Non- GFR Calc Glucose measurementOrdered B y: Melissa Reed on 08-08-2024 Glucose [Mass/Vol] 192 mg/dL High 74-106 [facility] Comment on above: Fasting Glucose resu lt greater than or equal to 126 mg/dL suggests DIABETES MELLITUS per A.D.A. criteria. Magnesiumon 08-08-2024 Magnesium [Mass/Vol] 2.2 mg/dL Normal 1.6-2.6 [facility] Comment on above: Performed By: #### L 500.2500, L501.5200 #### [facility] [place] [address], [address] Magnesium measurementOrdered By: Melissa Reed on 08-08-2024 Magnesium [Mass/Vol] 2.2 mg/dL 1.6-2.6 [facility] Potassium measurementOrdered By: Melissa Reed on 08-08-2024 Potassium [Moles/Vol] 4.1 mmol/L 3.5-5.1 [facility] Serum anion gap measurementO rdered By: Melissa Reed on 08-08-2024 Anion gap [Moles/Vol] 4 mmol/L Low 5-15 [facility] Serum or plasma calcium danea urement (mass/volume)Ordered By: Melissa Reed on 08-08-2024 Calcium [Mass/Vol] 8.6 mg/dL 8.5-10.1 [facility] Serum or plasma creatinine m easurement (mass/volume)Ordered By: Melissa Reed on 08-08-2024 Creatinine [Mass/Vol] 1.23 mg/dL High 0.55-1.02 [facility] Comment on above: The validity of the calculated GFR & GFRAA in patients over 70 years has not been determined. Clinical correlation is essential. Serum or plasma urea nitroge n measurement (mass/volume)Ordered By: Melissa Reed on 08-08-2024 Urea nitrogen [Mass/Vol] 34 mg/dL High 7-18 [facility] Sodium levelOrdered By: Rubin Reed on 08-08-2024 Sodium [Moles/Vol] 138 mmol/L 136-145 [facility] Urinalysis, Completeon 08-07 BACTERIA 4+ /hpf Normal None Seen [facility] Comment on above: Order Comment: CLEAN CATCH Performed By: #### L 500.2500, L501.5200 #### [facility] [address] [place], [address] EPI,SQUAMOUS 0-5 SEEN Normal 5-10 [facility] Comment on above: Order Comment: CLEAN CATCH Performed By: #### L 500.2500, L501.5200 #### [facility] [address] [place], [address] RBC 0-5 SEEN Normal 0-5 [facility] Comment on above: Order Comment: CLEAN CATCH Performed By: #### L 500.2500, L501.5200 #### [facility] [address] [place], [address] WBC 10-25 SEEN Normal 0-5 [facility] Comment on above: Order Comment: CLEAN CATCH Performed By: #### L 500.2500, L501.5200 #### [facility] [address] [place], [address] Mucus Ql (Urine sed) 0 SEEN Normal [facility] Comment on above: Order Comment: CLEAN CATCH Performed By: #### L 500.2500, L501.5200 #### [facility] [place], [address] Bilirubin Test strip Ql (U)O rdered By: Melissa Reed on 08-06-2024 Bilirubin Ql (U) Negative Negative [facility] Epithelial cells.squamous LM Ql (Urine sed)Ordered By: Melissa Reed on 08-06-2024 Epithelial cells.squamous LM.HPF (Urine sed) [#/Area] 0 /[HPF] 5-10 [facility] Glucose Ql (U)Ordered By: Sd Reed on 08-06-2024 Urine Glucose (UA) Normal mg/dl Normal [facility] Ketones Test strip Ql (U)Ord ered By: Melissa Reed on 08-06-2024 Ketones Ql (U) Negative Negative [facility] Microscopic analysis of urin e for red blood cells (RBC)Ordered By: Melissa Reed on 08-06-2024 Microscopic analysis of urine for red blood cells (RBC) 0-5 SEEN /hpf 0-5 [facility] Urine RBC 0-5 SEEN /hpf 0-5 [facility] Mucus LM Ql (Urine sed)Order ed By: Melissa Reed on 08-06-2024 Mucus Ql (Urine sed) 0 SEEN /hpf [facility] Nitrite Test strip Ql (U)Ord ered By: Melissa Reed on 08-06-2024 Nitrite Ql (U) Positive High Negative [facility] Protein Test strip Ql (U)Ord ered By: Melissa Reed on 08-06-2024 Protein Ql (U) Negative Negative [facility] Squamous epithelial cells de tection in urine sediment by light microscopyOrdered By: Melissa Reed on 08-06-2024 Epithelial cells.squamous LM Ql (Urine sed) 0-5 SEEN /hpf 5-10 [facility] Urine blood detectionOrdered By: Melissa Reed on 08-06-2024 Urine Occult Blood Negative Negative [facility] Urine clarityOrdered By: Lillian Reed on 08-06-2024 Clarity (U) Cloudy Clear [facility] Urine color determinationOrd ered By: Melissa Reed on 08-06-2024 Color (U) Yellow Yellow [facility] Urine cultureOrdered By: Lillian Reed on 08-06-2024 Bacteria identified Cx Nom (U) ESBL Escherichia coli Abnormal [facility] Urine glucose detectionOrder ed By: Melissa Reed on 08-06-2024 Glucose Ql (U) Normal mg/dl Normal [facility] Urine leukocyte esterase det ection by dipstickOrdered By: Melissa Reed on 08-06-2024 Leukocyte esterase Test strip Ql (U) 500 /ul High Negative [facility] Urine pHOrdered By: Melissa kerr on 08-06-2024 pH (U) 7.0 [pH] 5.0 - 8.0 [facility] Urine sediment bacteria coun t by microscopy (number/high power field)Ordered By: Melissa Reed on 08-06-2024 Bacteria LM.HPF (Urine sed) [#/Area] 4 /[HPF] None Seen [facility] Urine specific gravity measu rementOrdered By: Melissa Reed on 08-06-2024 Specific gravity (U) [Rel density] 1.010 1.002-1.030 [facility] Urine urobilinogen measureme ntOrdered By: Melissa Reed on 08-06-2024 Urobilinogen Ql (U) Normal mg/dl Normal [facility] Urobilinogen Ql (U)Ordered B y: Melissa Reed on 08-06-2024 Urine Urobilinogen Normal mg/dl Normal [facility] White blood cell countOrdere d By: Melissa Reed on 08-06-2024 Urine WBC 10-25 SEEN /hpf 0-5 [facility] White blood cell count 10-25 SEEN /hpf 0-5 [facility] Cerv Spine 2 or 3 Viewson Cerv Spine 2 or 3 Views [facility] Services [address] [place] [id number] Cerv Spine 2 or 3 Views MR#: [id number] Acct: [id number] Name: RADHA SANDOVAL Rep #: [id number] : 1945 F 78 From: Abner Castro DO PCP: Melissa Reed MD Status: REG CLI Study: Cerv Spine 2 or 3 Views Date of Exam: 07/31/24 Exam# [id number] Ordering Dr: Gypsy Argueta MD PROCEDURE: CERVICAL [...] Reversal of the cervical lordosis. [facility]: Dr. Gypsy Argueta MD; Melissa Reed MD Supply Chain Specialist: Signed Normal [facility] Shoulder min 2 Viewson 07-[address] [facility] Imaging Services [address] [place] [address] Shoulder min 2 Views MR#: [id number] Acct: [id number] Name: RADHA SANDOVAL Rep #: [id number] : 1945 F 78 From: Devendra Magallon PCP: Melissa Reed MD Status: REG CLI Study: Shoulder min 2 Views Date of Exam: 07/31/24 Exam# [id number] Ordering Dr: Gypsy Argueta MD PROCEDURE: Left shoulder radiographs REASON FOR EXAM: Pain TECHNIQUE: Four views of the left shoulder COMPARISON: None FINDINGS: See impression RAD/Shoulder min 2 Views IMPRESSION: Chronic fracture of the humeral neck with lateral plate/screw fixation hardware in place. Severe glenohumeral joint osteoarthritis. Negative for acute displaced fracture or dislocation. Acromioclavicular joint is intact. Reading Location: [facility] CC: Dr. Gypsy Argueta MD; Melissa Reed MD Supply Chain Specialist: Signed Normal [facility] Shoulder min [address] [facility] Imaging Services [address] [place] [address] Shoulder min 2 Views MR#: [id number] Acct: [id number] Name: RADHA SANDOVAL Rep #: [id number] : 1945 F 78 From: Devendra Magallon PCP: Melissa Reed MD Status: REG CLI Study: Shoulder min 2 Views Date of Exam: 07/31/24 Exam# [id number] Ordering Dr: Gypsy Argueta MD PROCEDURE: Right shoulder radiographs REASON FOR EXAM: Pain TECHNIQUE: Five views of the right shoulder COMPARISON: None. FINDINGS: See impression RAD/Shoulder min 2 Views IMPRESSION: Limited exam due to patient immobility. Negative for acute displaced fracture or dislocation. Probable severe glenohumeral joint osteoarthritis. Acromioclavicular joint is intact. Reading Location: [facility] CC: Dr. Gypsy Argueta MD; Melissa Reed MD Supply Chain Specialist: Signed Normal [facility] Basic Metabolic Profile (BMP )on 07-25-2024 BUN/CRE 26.7 RATIO High 10-20 [facility] Comment on above: Order Comment: 157 Performed By: #### M 100.2200, L400.0001 #### [facility] [address] [facility] [place], [address] CA,Total 9.1 mg/dL Normal 8.5-10.1 [facility] Comment on above: Order Comment: 157 Performed By: #### M 100.2200, L400.0001 #### [facility] [address] [place], [address] Chloride [Moles/Vol] 103 mmol/L Normal 98-107 [facility] Comment on above: Order Comment: 157 Performed By: #### M 100.2200, L400.0001 #### [facility] [address] [place], [address] CO2 [Moles/Vol] 31.0 mmol/L Normal 21.0-32.0 [facility] Comment on above: Order Comment: 157 Performed By: #### M 100.2200, L400.0001 #### [facility] [address] [place], [address] Creatinine [Mass/Vol] 0.97 mg/dL Normal 0.55-1.02 [facility] Comment on above: Order Comment: 157 Result Comment: The validity of the calculated GFR GFRAA in patients over 70 years has not been determined. Clinical correlation is essential. Performed By: #### M 100.2200, L400.0001 #### [facility] [address] [place], [address] EST GFR - AA 71 mL/min Normal >60 [facility] Comment on above: Order Comment: 157 Result Comment: Afri can Cypriot GFR Calc Performed By: #### M 100.2200, L400.0001 #### [facility] [address] [place], [address] GAP 4 Low 5-15 [facility] Comment on above: Order Comment: 157 Performed By: #### M 100.2200, L400.0001 #### [facility] [address] [place], [address] GFR/1.73 sq M.predicted among non-blacks MDRD (S/P/Bld) [Vol rate/Area] 58 mL/min/{1.73_m2} Low >60 [facility] Comment on above: Order Comment: 157 Result Comment: Non- GFR Calc Performed By: #### M 100.2200, L400.0001 #### [facility] [address] [place], [address] Glucose [Mass/Vol] 120 mg/dL High 74-106 [facility] Comment on above: Order Comment: 157 Result Comment: Fast ing Glucose result from 100 to 125 mg/dL suggests IMPAIRED HOMEOSTASIS per A.D.A. criteria. Performed By: #### M 100.2200, L400.0001 #### [facility] [address] [place], [address] Potassium [Moles/Vol] 3.9 mmol/L Normal 3.5-5.1 [facility] Comment on above: Order Comment: 157 Performed By: #### M 100.2200, L400.0001 #### [facility] [address] [place], [address] Sodium [Moles/Vol] 138 mmol/L Normal 136-145 [facility] Comment on above: Order Comment: 157 Performed By: #### M 100.2200, L400.0001 #### [facility] [address] [place], [address] Urea nitrogen [Mass/Vol] 26 mg/dL High 7-18 [facility] Comment on above: Order Comment: 157 Performed By: #### M 100.2200, L400.0001 #### [facility] [address] [place], [address] Blood urea nitrogen (BUN)/cr eatinine ratioOrdered By: Melissa Reed on 07-25-2024 Urea nitrogen/Creatinine [Mass ratio] 26.7 mg/mg High 10-20 [facility] Carbon dioxide measurementOr dered By: Melissa Reed on 07-25-2024 CO2 [Moles/Vol] 31.0 mmol/L 21.0-32.0 [facility] Chloride measurementOrdered By: Melissa Reed on 07-25-2024 Chloride [Moles/Vol] 103 mmol/L 98-107 [facility] Estimated glomerular filtrat ion rate (GFR) AmericanOrdered By: Melissa Reed on 07-25-2024 Estimated GFR (MDRD) Amer 71 mL/min >60 [facility] Comment on above: GFR Calc Glomerular filtration rate ( GFR) estimationOrdered By: Melissa Reed on 07-25-2024 Estimated GFR (MDRD) Non-Af Amer 58 mL/min Low >60 [facility] Comment on above: Non- GFR Calc Glucose measurementOrdered B y: Melissa Reed on 07-25-2024 Glucose [Mass/Vol] 120 mg/dL High 74-106 [facility] Comment on above: Fasting Glucose resu lt from 100 to 125 mg/dL suggests IMPAIRED HOMEOSTASIS per A.D.A. criteria. Magnesiumon 07-25-2024 Magnesium [Mass/Vol] 2.2 mg/dL Normal 1.6-2.6 [facility] Comment on above: Order Comment: 157 Performed By: #### M 100.2200, L400.0001 #### [facility] [place] [address], [address] Magnesium measurementOrdered By: Melissa Reed on 07-25-2024 Magnesium [Mass/Vol] 2.2 mg/dL 1.6-2.6 [facility] Potassium measurementOrdered By: Melissa Reed on 07-25-2024 Potassium [Moles/Vol] 3.9 mmol/L 3.5-5.1 [facility] Serum anion gap measurementO rdered By: Melissa Reed on 07-25-2024 Anion gap [Moles/Vol] 4 mmol/L Low 5-15 [facility] Serum or plasma calcium danae urement (mass/volume)Ordered By: Melissa Reed on 07-25-2024 Calcium [Mass/Vol] 9.1 mg/dL 8.5-10.1 [facility] Serum or plasma creatinine m easurement (mass/volume)Ordered By: Melissa Reed on 07-25-2024 Creatinine [Mass/Vol] 0.97 mg/dL 0.55-1.02 [facility] Comment on above: The validity of the calculated GFR & GFRAA in patients over 70 years has not been determined. Clinical correlation is essential. Serum or plasma urea nitroge n measurement (mass/volume)Ordered By: Melissa Reed on 07-25-2024 Urea nitrogen [Mass/Vol] 26 mg/dL High 7-18 [facility] Sodium levelOrdered By: Rubin Reed on 07-25-2024 Sodium [Moles/Vol] 138 mmol/L 136-145 [facility] Basic Metabolic Profile (BMP )on 07-11-2024 BUN/CRE 30.4 RATIO High 10-20 [facility] Comment on above: Order Comment: 157 Performed By: #### M 100.2200, L400.0001 #### [facility] [address] [place], [address] CA,Total 9.0 mg/dL Normal 8.5-10.1 [facility] Comment on above: Order Comment: 157 Performed By: #### M 100.2200, L400.0001 #### [facility] [address] [place], [address] Chloride [Moles/Vol] 103 mmol/L Normal 98-107 [facility] Comment on above: Order Comment: 157 Performed By: #### M 100.2200, L400.0001 #### [facility] [address] [place], [address] CO2 [Moles/Vol] 32.0 mmol/L Normal 21.0-32.0 [facility] Comment on above: Order Comment: 157 Performed By: #### M 100.2200, L400.0001 #### [facility] [address] [place], [address] Creatinine [Mass/Vol] 0.86 mg/dL Normal 0.55-1.02 [facility] Comment on above: Order Comment: 157 Result Comment: The validity of the calculated GFR GFRAA in patients over 70 years has not been determined. Clinical correlation is essential. Performed By: #### M 100.2200, L400.0001 #### [facility] [address] [place], [address] EST GFR - AA 82 mL/min Normal >60 [facility] Comment on above: Order Comment: 157 Result Comment: Afri can Cypriot GFR Calc Performed By: #### M 100.2200, L400.0001 #### [facility] [address] [place], [address] GAP 5 Normal 5-15 [facility] Comment on above: Order Comment: 157 Performed By: #### M 100.2200, L400.0001 #### [facility] [address] [place], [address] GFR/1.73 sq M.predicted among non-blacks MDRD (S/P/Bld) [Vol rate/Area] 68 mL/min/{1.73_m2} Normal >60 [facility] Comment on above: Order Comment: 157 Result Comment: Non- GFR Calc Performed By: #### M 100.2200, L400.0001 #### [facility] [address] [place], [address] Glucose [Mass/Vol] 109 mg/dL High 74-106 [facility] Comment on above: Order Comment: 157 Result Comment: Fast ing Glucose result from 100 to 125 mg/dL suggests IMPAIRED HOMEOSTASIS per A.D.A. criteria. Performed By: #### M 100.2200, L400.0001 #### [facility] [address] [place], [address] Potassium [Moles/Vol] 4.1 mmol/L Normal 3.5-5.1 [facility] Comment on above: Order Comment: 157 Performed By: #### M 100.2200, [id number] #### [facility] [address] [place], [address] Sodium [Moles/Vol] 140 mmol/L Normal 136-145 [facility] Comment on above: Order Comment: 157 Performed By: #### M 100.2200, [id number] #### [facility] [address] [place], [address] Urea nitrogen [Mass/Vol] 26 mg/dL High 7-18 [facility] Comment on above: Order Comment: 157 Performed By: #### M 100.2200, L400.0001 #### [facility] [address] [place], [address] Blood urea nitrogen (BUN)/cr eatinine ratioOrdered By: Melissa Reed on 07-11-2024 Urea nitrogen/Creatinine [Mass ratio] 30.4 mg/mg High 10-20 [facility] Carbon dioxide measurementOr dered By: Melissa Reed on 07-11-2024 CO2 [Moles/Vol] 32.0 mmol/L 21.0-32.0 [facility] Chloride measurementOrdered By: Melissa Reed on 07-11-2024 Chloride [Moles/Vol] 103 mmol/L 98-107 [facility] Estimated glomerular filtrat ion rate (GFR) AmericanOrdered By: Melissa Reed on 07-11-2024 Estimated GFR (MDRD) Amer 82 mL/min >60 [facility] Comment on above: GFR Calc Glomerular filtration rate ( GFR) estimationOrdered By: Melissa Reed on 07-11-2024 Estimated GFR (MDRD) Non-Af Amer 68 mL/min >60 [facility] Comment on above: Non- GFR Calc Glucose measurementOrdered B y: Melissa Reed on 07-11-2024 Glucose [Mass/Vol] 109 mg/dL High 74-106 [facility] Comment on above: Fasting Glucose resu lt from 100 to 125 mg/dL suggests IMPAIRED HOMEOSTASIS per A.D.A. criteria. Magnesiumon 07-11-2024 Magnesium [Mass/Vol] 2.2 mg/dL Normal 1.6-2.6 [facility] Comment on above: Order Comment: 157 Performed By: #### M 100.2200, L400.0001 #### [facility] [address] [place], [place], [id number] Magnesium measurementOrdered By: Melissa Reed on 07-11-2024 Magnesium [Mass/Vol] 2.2 mg/dL 1.6-2.6 [facility] Potassium measurementOrdered By: Melissa Reed on 07-11-2024 Potassium [Moles/Vol] 4.1 mmol/L 3.5-5.1 [facility] Serum anion gap measurementO rdered By: Melissa Reed on 07-11-2024 Anion gap [Moles/Vol] 5 mmol/L 5-15 [facility] Serum or plasma calcium danae urement (mass/volume)Ordered By: Melissa Reed on 07-11-2024 Calcium [Mass/Vol] 9.0 mg/dL 8.5-10.1 [facility] Serum or plasma creatinine m easurement (mass/volume)Ordered By: Melissa Reed on 07-11-2024 Creatinine [Mass/Vol] 0.86 mg/dL 0.55-1.02 [facility] Comment on above: The validity of the calculated GFR & GFRAA in patients over 70 years has not been determined. Clinical correlation is essential. Serum or plasma urea nitroge n measurement (mass/volume)Ordered By: Melissa Reed on 07-11-2024 Urea nitrogen [Mass/Vol] 26 mg/dL High 7-18 [facility] Sodium levelOrdered By: Rubin Reed on 07-11-2024 Sodium [Moles/Vol] 140 mmol/L 136-145 [facility] Basic Metabolic Profile (BMP )on 06-27-2024 BUN/CRE 23.7 RATIO High 10-20 [facility] Comment on above: Order Comment: 157 Performed By: #### M 100.2200, L400.0001 #### [facility] [address] [place], [address] CA,Total 8.7 mg/dL Normal 8.5-10.1 [facility] Comment on above: Order Comment: 157 Performed By: #### M 100.2200, L400.0001 #### [facility] [address] [place], [address] Chloride [Moles/Vol] 105 mmol/L Normal 98-107 [facility] Comment on above: Order Comment: 157 Performed By: #### M 100.2200, [id number] #### [facility] [address] [place], [address] CO2 [Moles/Vol] 31.0 mmol/L Normal 21.0-32.0 [facility] Comment on above: Order Comment: 157 Performed By: #### M 100.2200, L400.0001 #### [facility] [address] [place], [address] Creatinine [Mass/Vol] 1.18 mg/dL High 0.55-1.02 [facility] Comment on above: Order Comment: 157 Result Comment: The validity of the calculated GFR GFRAA in patients over 70 years has not been determined. Clinical correlation is essential. Performed By: #### M 100.2200, L400.0001 #### [facility] [address] [place], [address] EST GFR - AA 57 mL/min Low >60 [facility] Comment on above: Order Comment: 157 Result Comment: Afri can Cypriot GFR Calc Performed By: #### M 100.2200, [id number] #### [facility] [address] [place], [address] GAP 4 Low 5-15 [facility] Comment on above: Order Comment: 157 Performed By: #### M 100.2200, [id number] #### [facility] [address] [place], [address] GFR/1.73 sq M.predicted among non-blacks MDRD (S/P/Bld) [Vol rate/Area] 47 mL/min/{1.73_m2} Low >60 [facility] Comment on above: Order Comment: 157 Result Comment: Non- GFR Calc Performed By: #### M 100.2200, L400.0001 #### [facility] [address] [place], [address] Glucose [Mass/Vol] 85 mg/dL Normal 74-106 [facility] Comment on above: Order Comment: 157 Performed By: #### M 100.2200, L400.0001 #### [facility] [address] [place], [address] Potassium [Moles/Vol] 3.8 mmol/L Normal 3.5-5.1 [facility] Comment on above: Order Comment: 157 Performed By: #### M 100.2200, L400.0001 #### [facility] [address] [place], [address] Sodium [Moles/Vol] 140 mmol/L Normal 136-145 [facility] Comment on above: Order Comment: 157 Performed By: #### M 100.2200, [id number] #### [facility] [address] [place], [address] Urea nitrogen [Mass/Vol] 28 mg/dL High 7-18 [facility] Comment on above: Order Comment: 157 Performed By: #### M 100.2200, [id number] #### [facility] [address] [place], [address] Blood urea nitrogen (BUN)/cr eatinine ratioOrdered By: Melissa Reed on 06-27-2024 Urea nitrogen/Creatinine [Mass ratio] 23.7 mg/mg High 10-20 [facility] Carbon dioxide measurementOr dered By: Melissa Reed on 06-27-2024 CO2 [Moles/Vol] 31.0 mmol/L 21.0-32.0 [facility] Chloride measurementOrdered By: Melissa Reed on 06-27-2024 Chloride [Moles/Vol] 105 mmol/L 98-107 [facility] Estimated glomerular filtrat ion rate (GFR) AmericanOrdered By: Melissa Reed on 06-27-2024 Estimated GFR (MDRD) Amer 57 mL/min Low >60 [facility] Comment on above: GFR Calc Glomerular filtration rate ( GFR) estimationOrdered By: Melissa Reed on 06-27-2024 Estimated GFR (MDRD) Non-Af Amer 47 mL/min Low >60 [facility] Comment on above: Non- GFR Calc Glucose measurementOrdered B y: Melissa Reed on 06-27-2024 Glucose [Mass/Vol] 85 mg/dL 74-106 [facility] Magnesiumon 06-27-2024 Magnesium [Mass/Vol] 2.2 mg/dL Normal 1.6-2.6 [facility] Comment on above: Order Comment: 157 Performed By: #### M 100.2200, [id number] #### [facility] [address] [place], [place] [address], [address] Magnesium measurementOrdered By: Melissa Reed on 06-27-2024 Magnesium [Mass/Vol] 2.2 mg/dL 1.6-2.6 [facility] Potassium measurementOrdered By: Melissa Reed on 06-27-2024 Potassium [Moles/Vol] 3.8 mmol/L 3.5-5.1 [facility] Serum anion gap measurementO rdered By: Melissa Reed on 06-27-2024 Anion gap [Moles/Vol] 4 mmol/L Low 5-15 [facility] Serum or plasma calcium danae urement (mass/volume)Ordered By: Melissa Reed on 06-27-2024 Calcium [Mass/Vol] 8.7 mg/dL 8.5-10.1 [facility] Serum or plasma creatinine m easurement (mass/volume)Ordered By: Melissa Reed on 06-27-2024 Creatinine [Mass/Vol] 1.18 mg/dL High 0.55-1.02 [facility] Comment on above: The validity of the calculated GFR & GFRAA in patients over 70 years has not been determined. Clinical correlation is essential. Serum or plasma urea nitroge n measurement (mass/volume)Ordered By: Melissa Reed on 06-27-2024 Urea nitrogen [Mass/Vol] 28 mg/dL High 7-18 [facility] Sodium levelOrdered By: Rubin Reed on 06-27-2024 Sodium [Moles/Vol] 140 mmol/L 136-145 [facility] Basic Metabolic Profile (BMP )on 06-13-2024 BUN/CRE 32.6 RATIO High 10-20 [facility] Comment on above: Performed By: #### L 500.2500, L501.5200 #### [facility] [address] [place], [address] CA,Total 8.7 mg/dL Normal 8.5-10.1 [facility] Comment on above: Performed By: #### L 500.2500, L501.5200 #### [facility] [address] [place], [address] Chloride [Moles/Vol] 105 mmol/L Normal 98-107 [facility] Comment on above: Performed By: #### L 500.2500, L501.5200 #### [facility] [address] [place], [address] CO2 [Moles/Vol] 28.0 mmol/L Normal 21.0-32.0 [facility] Comment on above: Performed By: #### L 500.2500, L501.5200 #### [facility] [address] [place], [address] Creatinine [Mass/Vol] 0.98 mg/dL Normal 0.55-1.02 [facility] Comment on above: Result Comment: The validity of the calculated GFR GFRAA in patients over 70 years has not been determined. Clinical correlation is essential. Performed By: #### L 500.2500, L501.5200 #### [facility] [address] [place], [address] EST GFR - AA 70 mL/min Normal >60 [facility] Comment on above: Result Comment: Afri can Cypriot GFR Calc Performed By: #### L 500.2500, L501.5200 #### [facility] [address] [place], [address] GAP 5 Normal 5-15 [facility] Comment on above: Performed By: #### L 500.2500, L501.5200 #### [facility] [address] [place], [address] GFR/1.73 sq M.predicted among non-blacks MDRD (S/P/Bld) [Vol rate/Area] 58 mL/min/{1.73_m2} Low >60 [facility] Comment on above: Result Comment: Non- GFR Calc Performed By: #### L 500.2500, L501.5200 #### [facility] [address] [place], [address] Glucose [Mass/Vol] 161 mg/dL High 74-106 [facility] Comment on above: Result Comment: Fast ing Glucose result greater than or equal to 126 mg/dL suggests DIABETES MELLITUS per A.D.A. criteria. Performed By: #### L 500.2500, L501.5200 #### [facility] [address] [place], [address] Potassium [Moles/Vol] 3.8 mmol/L Normal 3.5-5.1 [facility] Comment on above: Result Comment: Slig ht Hemolysis, Result may be falsely increased. Performed By: #### L 500.2500, L501.5200 #### [facility] [address] [place], [address] Sodium [Moles/Vol] 138 mmol/L Normal 136-145 [facility] Comment on above: Performed By: #### L 500.2500, L501.5200 #### [facility] [address] [place], [address] Urea nitrogen [Mass/Vol] 32 mg/dL High 7-18 [facility] Comment on above: Performed By: #### L 500.2500, L501.5200 #### [facility] [address] [place], [address] Blood urea nitrogen (BUN)/cr eatinine ratioOrdered By: Melissa Reed on 06-13-2024 Urea nitrogen/Creatinine [Mass ratio] 32.6 mg/mg High 10-20 [facility] Carbon dioxide measurementOr dered By: Melissa Reed on 06-13-2024 CO2 [Moles/Vol] 28.0 mmol/L 21.0-32.0 [facility] Chloride measurementOrdered By: Melissa Reed on 06-13-2024 Chloride [Moles/Vol] 105 mmol/L 98-107 [facility] Estimated glomerular filtrat ion rate (GFR) AmericanOrdered By: Melissa Reed on 06-13-2024 Estimated GFR (MDRD) Amer 70 mL/min >60 [facility] Comment on above: GFR Calc Glomerular filtration rate ( GFR) estimationOrdered By: Melissa Reed on 06-13-2024 Estimated GFR (MDRD) Non-Af Amer 58 mL/min Low >60 [facility] Comment on above: Non- GFR Calc Glucose measurementOrdered B y: Melissa Reed on 06-13-2024 Glucose [Mass/Vol] 161 mg/dL High 74-106 [facility] Comment on above: Fasting Glucose resu lt greater than or equal to 126 mg/dL suggests DIABETES MELLITUS per A.D.A. criteria. Magnesiumon 06-13-2024 Magnesium [Mass/Vol] 2.2 mg/dL Normal 1.6-2.6 [facility] Comment on above: Result Comment: Slig ht Hemolysis, Result may be falsely increased. Performed By: #### L 501.5200, L500.2500 #### [facility] [address] [place], [place], [id number] Magnesium measurementOrdered By: Melissa Reed on 06-13-2024 Magnesium [Mass/Vol] 2.2 mg/dL 1.6-2.6 [facility] Comment on above: Slight Hemolysis, Re sult may be falsely increased. Potassium measurementOrdered By: Melissa Reed on 06-13-2024 Potassium [Moles/Vol] 3.8 mmol/L 3.5-5.1 [facility] Comment on above: Slight Hemolysis, Re sult may be falsely increased. Serum anion gap measurementO rdered By: Melissa Reed on 06-13-2024 Anion gap [Moles/Vol] 5 mmol/L 5-15 [facility] Serum or plasma calcium danae urement (mass/volume)Ordered By: Melissa Reed on 06-13-2024 Calcium [Mass/Vol] 8.7 mg/dL 8.5-10.1 [facility] Serum or plasma creatinine m easurement (mass/volume)Ordered By: Melissa Reed on 06-13-2024 Creatinine [Mass/Vol] 0.98 mg/dL 0.55-1.02 [facility] Comment on above: The validity of the calculated GFR & GFRAA in patients over 70 years has not been determined. Clinical correlation is essential. Serum or plasma urea nitroge n measurement (mass/volume)Ordered By: Melissa Reed on 06-13-2024 Urea nitrogen [Mass/Vol] 32 mg/dL High 7-18 [facility] Sodium levelOrdered By: Rbuin Reed on 06-13-2024 Sodium [Moles/Vol] 138 mmol/L 136-145 [facility] Basic Metabolic Profile (BMP )on 05-29-2024 BUN/CRE 22.1 RATIO High 10-20 [facility] Comment on above: Order Comment: 157 Performed By: #### L 501.5200, L500.2500 #### [facility] [address] [place], [place], [id number] CA,Total 8.9 mg/dL Normal 8.5-10.1 [facility] Comment on above: Order Comment: 157 Performed By: #### L 501.5200, L500.2500 #### [facility] [address] [place], [address] Chloride [Moles/Vol] 106 mmol/L Normal 98-107 [facility] Comment on above: Order Comment: 157 Performed By: #### L 501.5200, L500.2500 #### [facility] [address] [place], [address] CO2 [Moles/Vol] 32.0 mmol/L Normal 21.0-32.0 [facility] Comment on above: Order Comment: 157 Performed By: #### L 501.5200, L500.2500 #### [facility] [address] [place], [address] Creatinine [Mass/Vol] 1.31 mg/dL High 0.55-1.02 [facility] Comment on above: Order Comment: 157 Result Comment: The validity of the calculated GFR GFRAA in patients over 70 years has not been determined. Clinical correlation is essential. Performed By: #### L 501.5200, L500.2500 #### [facility] [address] [place], [address] EST GFR - AA 50 mL/min Low >60 [facility] Comment on above: Order Comment: 157 Result Comment: Afri can Cypriot GFR Calc Performed By: #### L 501.5200, L500.2500 #### [facility] [address] [place], [address] GAP 5 Normal 5-15 [facility] Comment on above: Order Comment: 157 Performed By: #### L 501.5200, L500.2500 #### [facility] [address] [place], [address] GFR/1.73 sq M.predicted among non-blacks MDRD (S/P/Bld) [Vol rate/Area] 41 mL/min/{1.73_m2} Low >60 [facility] Comment on above: Order Comment: 157 Result Comment: Non- GFR Calc Performed By: #### L 501.5200, L500.2500 #### [facility] [address] [place], [address] Glucose [Mass/Vol] 116 mg/dL High 74-106 [facility] Comment on above: Order Comment: 157 Result Comment: Fast ing Glucose result from 100 to 125 mg/dL suggests IMPAIRED HOMEOSTASIS per A.D.A. criteria. Performed By: #### L 501.5200, L500.2500 #### [facility] [address] [place], [address] Potassium [Moles/Vol] 3.6 mmol/L Normal 3.5-5.1 [facility] Comment on above: Order Comment: 157 Performed By: #### L 501.5200, L500.2500 #### [facility] [address] [place], [address] Sodium [Moles/Vol] 142 mmol/L Normal 136-145 [facility] Comment on above: Order Comment: 157 Performed By: #### L 501.5200, L500.2500 #### [facility] [address] [place], [address] Urea nitrogen [Mass/Vol] 29 mg/dL High 7-18 [facility] Comment on above: Order Comment: 157 Performed By: #### L 501.5200, L500.2500 #### [facility] [address] [place], [address] Blood urea nitrogen (BUN)/cr eatinine ratioOrdered By: Melissa Reed on 05-29-2024 Urea nitrogen/Creatinine [Mass ratio] 22.1 mg/mg High 10-20 [facility] Carbon dioxide measurementOr dered By: Melissa Reed on 05-29-2024 CO2 [Moles/Vol] 32.0 mmol/L 21.0-32.0 [facility] Chloride measurementOrdered By: Melissa Reed on 05-29-2024 Chloride [Moles/Vol] 106 mmol/L 98-107 [facility] Estimated glomerular filtrat ion rate (GFR) AmericanOrdered By: Melissa Reed on 05-29-2024 Estimated GFR (MDRD) Amer 50 mL/min Low >60 [facility] Comment on above: GFR Calc Glomerular filtration rate ( GFR) estimationOrdered By: Melissa Reed on 05-29-2024 Estimated GFR (MDRD) Non-Af Amer 41 mL/min Low >60 [facility] Comment on above: Non- GFR Calc Glucose measurementOrdered B y: Melissa Reed on 05-29-2024 Glucose [Mass/Vol] 116 mg/dL High 74-106 [facility] Comment on above: Fasting Glucose resu lt from 100 to 125 mg/dL suggests IMPAIRED HOMEOSTASIS per A.D.A. criteria. Magnesiumon 05-29-2024 Magnesium [Mass/Vol] 2.0 mg/dL Normal 1.6-2.6 [facility] Comment on above: Order Comment: 157 Performed By: #### L 501.5200, L500.2500 #### [facility] [address] [place] [address]. [place], [place], [id number] Magnesium measurementOrdered By: Melissa Reed on 05-29-2024 Magnesium [Mass/Vol] 2.0 mg/dL 1.6-2.6 [facility] Potassium measurementOrdered By: Melissa Reed on 05-29-2024 Potassium [Moles/Vol] 3.6 mmol/L 3.5-5.1 [facility] Serum anion gap measurementO rdered By: Melissa Reed on 05-29-2024 Anion gap [Moles/Vol] 5 mmol/L 5-15 [facility] Serum or plasma calcium danae urement (mass/volume)Ordered By: Melissa Reed on 05-29-2024 Calcium [Mass/Vol] 8.9 mg/dL 8.5-10.1 [facility] Serum or plasma creatinine m easurement (mass/volume)Ordered By: Melissa Reed on 05-29-2024 Creatinine [Mass/Vol] 1.31 mg/dL High 0.55-1.02 [facility] Comment on above: The validity of the calculated GFR & GFRAA in patients over 70 years has not been determined. Clinical correlation is essential. Serum or plasma urea nitroge n measurement (mass/volume)Ordered By: Melissa Reed on 05-29-2024 Urea nitrogen [Mass/Vol] 29 mg/dL High 7-18 [facility] Sodium levelOrdered By: Rubin Reed on 05-29-2024 Sodium [Moles/Vol] 142 mmol/L 136-145 [facility] Basic Metabolic Profile (BMP )on 05-15-2024 BUN/CRE 31.1 RATIO High 10-20 [facility] Comment on above: Order Comment: 157 Performed By: #### L 501.5200, L500.2500 #### [facility] [address] [place], [address] CA,Total 8.7 mg/dL Normal 8.5-10.1 [facility] Comment on above: Order Comment: 157 Performed By: #### L 501.5200, L500.2500 #### [facility] [address] [place], [address] Chloride [Moles/Vol] 105 mmol/L Normal 98-107 [facility] Comment on above: Order Comment: 157 Performed By: #### L 501.5200, L500.2500 #### [facility] [address] [place], [address] CO2 [Moles/Vol] 30.0 mmol/L Normal 21.0-32.0 [facility] Comment on above: Order Comment: 157 Performed By: #### L 501.5200, L500.2500 #### [facility] [address] [place], [address] Creatinine [Mass/Vol] 1.06 mg/dL High 0.55-1.02 [facility] Comment on above: Order Comment: 157 Result Comment: The validity of the calculated GFR GFRAA in patients over 70 years has not been determined. Clinical correlation is essential. Performed By: #### L 501.5200, L500.2500 #### [facility] [address] [place], [address] EST GFR - AA 64 mL/min Normal >60 [facility] Comment on above: Order Comment: 157 Result Comment: Afri can Cypriot GFR Calc Performed By: #### L 501.5200, L500.2500 #### [facility] [address] [place], [address] GAP 5 Normal 5-15 [facility] Comment on above: Order Comment: 157 Performed By: #### L 501.5200, L500.2500 #### [facility] [address] [place], [address] GFR/1.73 sq M.predicted among non-blacks MDRD (S/P/Bld) [Vol rate/Area] 53 mL/min/{1.73_m2} Low >60 [facility] Comment on above: Order Comment: 157 Result Comment: Non- GFR Calc Performed By: #### L 501.5200, L500.2500 #### [facility] [address] [place], [address] Glucose [Mass/Vol] 119 mg/dL High 74-106 [facility] Comment on above: Order Comment: 157 Result Comment: Fast ing Glucose result from 100 to 125 mg/dL suggests IMPAIRED HOMEOSTASIS per A.D.A. criteria. Performed By: #### L 501.5200, L500.2500 #### [facility] [address] [place], [address] Potassium [Moles/Vol] 3.6 mmol/L Normal 3.5-5.1 [facility] Comment on above: Order Comment: 157 Performed By: #### L 501.5200, L500.2500 #### [facility] [address] [place], [address] Sodium [Moles/Vol] 140 mmol/L Normal 136-145 [facility] Comment on above: Order Comment: 157 Performed By: #### L 501.5200, L500.2500 #### [facility] [address] [place], [address] Urea nitrogen [Mass/Vol] 33 mg/dL High 7-18 [facility] Comment on above: Order Comment: 157 Performed By: #### L 501.5200, L500.2500 #### [facility] [address] [place], [address] Magnesiumon 05-15-2024 Magnesium [Mass/Vol] 2.1 mg/dL Normal 1.6-2.6 [facility] Comment on above: Order Comment: 157 Performed By: #### L 500.2500, L501.5200 #### [facility] [address] [place], [address] Basic Metabolic Profile (BMP )on 05-01-2024 BUN/CRE 21.4 RATIO High 10-20 [facility] Comment on above: Order Comment: 157 Performed By: #### L 501.5200, L500.2500 #### [facility] [address] [place], [address] CA,Total 9.2 mg/dL Normal 8.5-10.1 [facility] Comment on above: Order Comment: 157 Performed By: #### L [id number], L500.2500 #### [facility] [address] [place], [address] Chloride [Moles/Vol] 106 mmol/L Normal 98-107 [facility] Comment on above: Order Comment: 157 Performed By: #### L [id number], L500.2500 #### [facility] [address] [place], [address] CO2 [Moles/Vol] 27.0 mmol/L Normal 21.0-32.0 [facility] Comment on above: Order Comment: 157 Performed By: #### L [id number], L500.2500 #### [facility] [address] [place], [address] Creatinine [Mass/Vol] 1.26 mg/dL High 0.55-1.02 [facility] Comment on above: Order Comment: 157 Result Comment: The validity of the calculated GFR GFRAA in patients over 70 years has not been determined. Clinical correlation is essential. Performed By: #### L [id number], L500.2500 #### [facility] [address] [place], [address] EST GFR - AA 53 mL/min Low >60 [facility] Comment on above: Order Comment: 157 Result Comment: Afri can Cypriot GFR Calc Performed By: #### L [id number], L500.2500 #### [facility] [address] [place], [address] GAP 7 Normal 5-15 [facility] Comment on above: Order Comment: 157 Performed By: #### L [id number], L500.2500 #### [facility] [address] [place], [address] GFR/1.73 sq M.predicted among non-blacks MDRD (S/P/Bld) [Vol rate/Area] 43 mL/min/{1.73_m2} Low >60 [facility] Comment on above: Order Comment: 157 Result Comment: Non- GFR Calc Performed By: #### L [id number], L500.2500 #### [facility] [address] [place], [address] Glucose [Mass/Vol] 126 mg/dL High 74-106 [facility] Comment on above: Order Comment: 157 Result Comment: Fast ing Glucose result greater than or equal to 126 mg/dL suggests DIABETES MELLITUS per A.D.A. criteria. Performed By: #### L [id number], L500.2500 #### [facility] [address] [place], [address] Potassium [Moles/Vol] 4.3 mmol/L Normal 3.5-5.1 [facility] Comment on above: Order Comment: 157 Performed By: #### L [id number], L500.2500 #### [facility] [address] [place], [address] Sodium [Moles/Vol] 140 mmol/L Normal 136-145 [facility] Comment on above: Order Comment: 157 Performed By: #### L [id number], L500.2500 #### [facility] [address] [place], [address] Urea nitrogen [Mass/Vol] 27 mg/dL High 7-18 [facility] Comment on above: Order Comment: 157 Performed By: #### L [id number], L500.2500 #### [facility] [address] [place], [address] Magnesiumon 05-01-2024 Magnesium [Mass/Vol] 2.1 mg/dL Normal 1.6-2.6 [facility] Comment on above: Order Comment: 157 Performed By: #### L [id number], L500.2500 #### [facility] [address] [place], [address] 36on 02-05-2024 36 Okay, thank you appreciate her letting us know [facility] 36 We had returned mail on patient---I called her to get her new address. She stated that she is in assisted living at [facility] and will not be a patient at our office. She also wanted Dr. Lopez to know that she appreciates everything that he has done for her over the years. Normal [facility] Progress Noteon 01-03-2024 Progress Note error Normal [facility] Progress Noteon 12-29-2023 Progress Note Please schedule AWV. Normal [facility] Progress Note Called patient---moustapha ne number is not working--sent letter by mail. [facility] 10-27-2023 36 Spoke with jaylon Pascual [...] of caller: Ankur Valdivia Contact phone number: [phone] Relationship to Patient: [facility] Provider: Dr Lopez Practice: [facility] Chief Complaint/Reason for Call: Ankur Valdivia from [facility] would like to confirm that patient is still being treated at this office. Please advise. Best time of day caller can be reached: any Patient advised that office/PCP has 24-48 business hours to return their call: Yes [facility] Basophil percentageOrdered B y: Melissa Reed on 09-29-2023 Chloride [Moles/Vol] 106 mmol/L 98-107 [facility] Glucose [Mass/Vol] 165 mg/dL 74-106 [facility] Comment on above: Fasting Glucose resu lt greater than or equal to 126 mg/dL suggests DIABETES MELLITUS per A.D.A. criteria. Potassium [Moles/Vol] 3.5 mmol/L 3.5-5.1 [facility] Sodium [Moles/Vol] 135 mmol/L 136-145 [facility] - Chemistry and C hemistry - challengeOrdered By: Melissa Reed on 09-29-2023 CO2 [Moles/Vol] 26.0 mmol/L 21.0-32.0 [facility] Urea nitrogen/Creatinine [Mass ratio] 23.7 mg/mg 10- [facility] No Panel InformationOrdered By: Melissa Reed on 09-29-2023 Estimated GFR (MDRD) Amer 57 mL/min >60 [facility] Comment on above: GFR Calc Estimated GFR (MDRD) Non-Af Amer 47 mL/min >60 [facility] Comment on above: Non- GFR Calc Serum or plasma calcium danae urement (mass/volume)Ordered By: Melissa Reed on 09-29-2023 Calcium [Mass/Vol] 8.5 mg/dL 8.5-10.1 [facility] Serum or plasma creatinine m easurement (mass/volume)Ordered By: Melissa Reed on 09-29-2023 Creatinine [Mass/Vol] 1.18 mg/dL 0.55-1.02 [facility] Comment on above: The validity of the calculated GFR & GFRAA in patients over 70 years has not been determined. Clinical correlation is essential. Serum or plasma urea nitroge n measurement (mass/volume)Ordered By: Melissa Reed on 09-29-2023 Urea nitrogen [Mass/Vol] 28 mg/dL 7-18 [facility] Thin prep Papanicolaou smear with manual screeningOrdered By: Melissa Reed on 09-29-2023 Thin prep Papanicolaou smear with manual screening 3 5-15 [facility] Basophil percentageOrdered B y: Melissa Reed on 09-14-2023 Chloride [Moles/Vol] 106 mmol/L 98-107 [facility] Glucose [Mass/Vol] 191 mg/dL 74-106 [facility] Comment on above: Fasting Glucose resu lt greater than or equal to 126 mg/dL suggests DIABETES MELLITUS per A.D.A. criteria. Potassium [Moles/Vol] 3.8 mmol/L 3.5-5.1 [facility] Sodium [Moles/Vol] 138 mmol/L 136-145 [facility] - Chemistry and C hemistry - challengeOrdered By: Melissa Reed on 09-14-2023 CO2 [Moles/Vol] 29.0 mmol/L 21.0-32.0 [facility] Urea nitrogen/Creatinine [Mass ratio] 17.8 mg/mg 10-20 [facility] No Panel InformationOrdered By: Melissa Reed on 09-14-2023 Estimated GFR (MDRD) Amer 63 mL/min >60 [facility] Comment on above: GFR Calc Estimated GFR (MDRD) Non-Af Amer 52 mL/min >60 [facility] Comment on above: Non- GFR Calc Serum or plasma calcium danae urement (mass/volume)Ordered By: Melissa Reed on 09-14-2023 Calcium [Mass/Vol] 8.7 mg/dL 8.5-10.1 [facility] Serum or plasma creatinine m easurement (mass/volume)Ordered By: Melissa Reed on 09-14-2023 Creatinine [Mass/Vol] 1.07 mg/dL 0.55-1.02 [facility] Comment on above: The validity of the calculated GFR & GFRAA in patients over 70 years has not been determined. Clinical correlation is essential. Serum or plasma urea nitroge n measurement (mass/volume)Ordered By: Melissa Reed on 09-14-2023 Urea nitrogen [Mass/Vol] 19 mg/dL 7-18 [facility] Thin prep Papanicolaou smear with manual screeningOrdered By: Melissa Reed on 09-14-2023 Thin prep Papanicolaou smear with manual screening 3 5-15 [facility] Basophil percentageOrdered B y: Melissa Reed on 08-31-2023 Chloride [Moles/Vol] 104 mmol/L 98-107 [facility] Glucose [Mass/Vol] 169 mg/dL 74-106 [facility] Comment on above: Fasting Glucose resu lt greater than or equal to 126 mg/dL suggests DIABETES MELLITUS per A.D.A. criteria. Potassium [Moles/Vol] 3.6 mmol/L 3.5-5.1 [facility] Sodium [Moles/Vol] 140 mmol/L 136-145 [facility] - Chemistry and C hemistry - challengeOrdered By: Melissa Reed on 08-31-2023 CO2 [Moles/Vol] 30.0 mmol/L 21.0-32.0 [facility] Urea nitrogen/Creatinine [Mass ratio] 20.3 mg/mg 10-20 [facility] No Panel InformationOrdered By: Melissa Reed on 08-31-2023 Estimated GFR (MDRD) Amer 57 mL/min >60 [facility] Comment on above: GFR Calc Estimated GFR (MDRD) Non-Af Amer 47 mL/min >60 [facility] Comment on above: Non- GFR Calc Serum or plasma calcium danae urement (mass/volume)Ordered By: Melissa Reed on 08-31-2023 Calcium [Mass/Vol] 8.9 mg/dL 8.5-10.1 [facility] Serum or plasma creatinine m easurement (mass/volume)Ordered By: Melissa Reed on 08-31-2023 Creatinine [Mass/Vol] 1.18 mg/dL 0.55-1.02 [facility] Comment on above: The validity of the calculated GFR & GFRAA in patients over 70 years has not been determined. Clinical correlation is essential. Serum or plasma urea nitroge n measurement (mass/volume)Ordered By: Melissa Reed on 08-31-2023 Urea nitrogen [Mass/Vol] 24 mg/dL 7-18 [facility] Thin prep Papanicolaou smear with manual screeningOrdered By: Melissa Reed on 08-31-2023 Thin prep Papanicolaou smear with manual screening 6 5-15 [facility] Basophil percentageOrdered B y: Melissa Reed on 08-17-2023 Chloride [Moles/Vol] 105 mmol/L 98-107 [facility] Glucose [Mass/Vol] 192 mg/dL 74-106 [facility] Comment on above: Fasting Glucose resu lt greater than or equal to 126 mg/dL suggests DIABETES MELLITUS per A.D.A. criteria. Potassium [Moles/Vol] 3.8 mmol/L 3.5-5.1 [facility] Sodium [Moles/Vol] 138 mmol/L 136-145 [facility] - Chemistry and C hemistry - challengeOrdered By: Melissa Reed on 08-17-2023 CO2 [Moles/Vol] 29.0 mmol/L 21.0-32.0 [facility] Urea nitrogen/Creatinine [Mass ratio] 22.8 mg/mg 10-20 [facility] No Panel InformationOrdered By: Melissa Reed on 08-17-2023 Estimated GFR (MDRD) Amer 59 mL/min >60 [facility] Comment on above: GFR Calc Estimated GFR (MDRD) Non-Af Amer 49 mL/min >60 [facility] Comment on above: Non- GFR Calc Serum or plasma calcium danae urement (mass/volume)Ordered By: Melissa Reed on 08-17-2023 Calcium [Mass/Vol] 8.8 mg/dL 8.5-10.1 [facility] Serum or plasma creatinine m easurement (mass/volume)Ordered By: Melissa Reed on 08-17-2023 Creatinine [Mass/Vol] 1.14 mg/dL 0.55-1.02 [facility] Comment on above: The validity of the calculated GFR & GFRAA in patients over 70 years has not been determined. Clinical correlation is essential. Serum or plasma urea nitroge n measurement (mass/volume)Ordered By: Melissa Reed on 08-17-2023 Urea nitrogen [Mass/Vol] 26 mg/dL 7-18 [facility] Thin prep Papanicolaou smear with manual screeningOrdered By: Melissa Reed on 08-17-2023 Thin prep Papanicolaou smear with manual screening 4 5-15 [facility] Basophil percentageOrdered B y: Melissa Reed on 08-14-2023 Chloride [Moles/Vol] 104 mmol/L 98-107 [facility] Glucose [Mass/Vol] 146 mg/dL 74-106 [facility] Comment on above: Fasting Glucose resu lt greater than or equal to 126 mg/dL suggests DIABETES MELLITUS per A.D.A. criteria. Potassium [Moles/Vol] 3.4 mmol/L 3.5-5.1 [facility] Sodium [Moles/Vol] 138 mmol/L 136-145 [facility] - Chemistry and C hemistry - challengeOrdered By: Melissa Reed on 08-14-2023 CO2 [Moles/Vol] 29.0 mmol/L 21.0-32.0 [facility] Urea nitrogen/Creatinine [Mass ratio] 24.8 mg/mg 10-20 [facility] No Panel InformationOrdered By: Melissa Reed on 08-14-2023 Estimated GFR (MDRD) Amer 60 mL/min >60 [facility] Comment on above: GFR Calc Estimated GFR (MDRD) Non-Af Amer 49 mL/min >60 [facility] Comment on above: Non- GFR Calc Serum or plasma calcium danae urement (mass/volume)Ordered By: Melissa Reed on 08-14-2023 Calcium [Mass/Vol] 9.1 mg/dL 8.5-10.1 [facility] Serum or plasma creatinine m easurement (mass/volume)Ordered By: Melissa eRed on 08-14-2023 Creatinine [Mass/Vol] 1.13 mg/dL 0.55-1.02 [facility] Comment on above: The validity of the calculated GFR & GFRAA in patients over 70 years has not been determined. Clinical correlation is essential. Serum or plasma urea nitroge n measurement (mass/volume)Ordered By: Melissa Reed on 08-14-2023 Urea nitrogen [Mass/Vol] 28 mg/dL 7-18 [facility] Thin prep Papanicolaou smear with manual screeningOrdered By: Melissa Reed on 08-14-2023 Thin prep Papanicolaou smear with manual screening 5 5-15 [facility] Basophil percentageOrdered B y: Melissa Reed on 07-31-2023 Chloride [Moles/Vol] 107 mmol/L 98-107 [facility] Glucose [Mass/Vol] 149 mg/dL 74-106 [facility] Comment on above: Fasting Glucose resu lt greater than or equal to 126 mg/dL suggests DIABETES MELLITUS per A.D.A. criteria. Potassium [Moles/Vol] 3.4 mmol/L 3.5-5.1 [facility] Sodium [Moles/Vol] 142 mmol/L 136-145 [facility] - Chemistry and C hemistry - challengeOrdered By: Melissa Reed on 07-31-2023 CO2 [Moles/Vol] 30.0 mmol/L 21.0-32.0 [facility] Urea nitrogen/Creatinine [Mass ratio] 21.7 mg/mg 10-20 [facility] No Panel InformationOrdered By: Melissa Reed on 07-31-2023 Estimated GFR (MDRD) Amer 64 mL/min >60 [facility] Comment on above: GFR Calc Estimated GFR (MDRD) Non-Af Amer 53 mL/min >60 [facility] Comment on above: Non- GFR Calc Serum or plasma calcium danae urement (mass/volume)Ordered By: Melissa Reed on 07-31-2023 Calcium [Mass/Vol] 8.7 mg/dL 8.5-10.1 [facility] Serum or plasma creatinine m easurement (mass/volume)Ordered By: Melissa Reed on 07-31-2023 Creatinine [Mass/Vol] 1.06 mg/dL 0.55-1.02 [facility] Comment on above: The validity of the calculated GFR & GFRAA in patients over 70 years has not been determined. Clinical correlation is essential. Serum or plasma urea nitroge n measurement (mass/volume)Ordered By: Melissa Reed on 07-31-2023 Urea nitrogen [Mass/Vol] 23 mg/dL 7-18 [facility] Thin prep Papanicolaou smear with manual screeningOrdered By: Melissa Reed on 07-31-2023 Thin prep Papanicolaou smear with manual screening 5 5-15 [facility] Basophil percentageOrdered B y: Melissa Reed on 07-17-2023 Chloride [Moles/Vol] 106 mmol/L 98-107 [facility] Glucose [Mass/Vol] 141 mg/dL 74-106 [facility] Comment on above: Fasting Glucose resu lt greater than or equal to 126 mg/dL suggests DIABETES MELLITUS per A.D.A. criteria. Potassium [Moles/Vol] 4.0 mmol/L 3.5-5.1 [facility] Comment on above: Moderate Hemolysis, Result may be falsely increased. Sodium [Moles/Vol] 137 mmol/L 136-145 [facility] - Chemistry and C hemistry - challengeOrdered By: Melissa Reed on 07-17-2023 CO2 [Moles/Vol] 29.0 mmol/L 21.0-32.0 [facility] Urea nitrogen/Creatinine [Mass ratio] 22.6 mg/mg 10-20 [facility] No Panel InformationOrdered By: Melissa Reed on 07-17-2023 Estimated GFR (MDRD) Amer 58 mL/min >60 [facility] Comment on above: GFR Calc Estimated GFR (MDRD) Non-Af Amer 48 mL/min >60 [facility] Comment on above: Non- GFR Calc Serum or plasma calcium danae urement (mass/volume)Ordered By: Melissa Reed on 07-17-2023 Calcium [Mass/Vol] 9.3 mg/dL 8.5-10.1 [facility] Serum or plasma creatinine m easurement (mass/volume)Ordered By: Melissa Reed on 07-17-2023 Creatinine [Mass/Vol] 1.15 mg/dL 0.55-1.02 [facility] Comment on above: The validity of the calculated GFR & GFRAA in patients over 70 years has not been determined. Clinical correlation is essential. Serum or plasma urea nitroge n measurement (mass/volume)Ordered By: Melissa Reed on 07-17-2023 Urea nitrogen [Mass/Vol] 26 mg/dL 7-18 [facility] Thin prep Papanicolaou smear with manual screeningOrdered By: Melissa Reed on 07-17-2023 Thin prep Papanicolaou smear with manual screening 2 5-15 [facility] Basophil percentageOrdered B y: Melissa Reed on 07-03-2023 Chloride [Moles/Vol] 106 mmol/L 98-107 [facility] Glucose [Mass/Vol] 134 mg/dL 74-106 [facility] Comment on above: Fasting Glucose resu lt greater than or equal to 126 mg/dL suggests DIABETES MELLITUS per A.D.A. criteria. Potassium [Moles/Vol] 4.0 mmol/L 3.5-5.1 [facility] Sodium [Moles/Vol] 140 mmol/L 136-145 [facility] - Chemistry and C hemistry - challengeOrdered By: Melissa Reed on 07-03-2023 CO2 [Moles/Vol] 28.0 mmol/L 21.0-32.0 [facility] Urea nitrogen/Creatinine [Mass ratio] 20.5 mg/mg 10-20 [facility] No Panel InformationOrdered By: Melissa Reed on 07-03-2023 Estimated GFR (MDRD) Amer 71 mL/min >60 [facility] Comment on above: GFR Calc Estimated GFR (MDRD) Non-Af Amer 58 mL/min >60 [facility] Comment on above: Non- GFR Calc Serum or plasma calcium danae urement (mass/volume)Ordered By: Melissa Reed on 07-03-2023 Calcium [Mass/Vol] 8.6 mg/dL 8.5-10.1 [facility] Serum or plasma creatinine m easurement (mass/volume)Ordered By: Melissa Reed on 07-03-2023 Creatinine [Mass/Vol] 0.98 mg/dL 0.55-1.02 [facility] Comment on above: The validity of the calculated GFR & GFRAA in patients over 70 years has not been determined. Clinical correlation is essential. Serum or plasma urea nitroge n measurement (mass/volume)Ordered By: Melissa Reed on 07-03-2023 Urea nitrogen [Mass/Vol] 20 mg/dL 7-18 [facility] Thin prep Papanicolaou smear with manual screeningOrdered By: Melissa Reed on 07-03-2023 Thin prep Papanicolaou smear with manual screening 6 10-31 [facility] Culture, urineOrdered By: Sd Reed on 06-23-2023 Bacteria identified Cx Nom (U) ESBL Escherichia coli [facility] Progress Noteon 06-23-2023 Progress Note EMR reviewed. The patient was at [facility] for several weeks after a hospitalization. [facility] called and spoke with a staff member today and the patient was discharged to the [facility] living facility. PMH: RLS, HTN, GI-BLEED, CKD3, DM2, HYPOTHYROID, ANXIETY, DEPRESSION, HYPOKALEMIA, HYPERLIPIDEMIA HTN MEDS: AMLODIPINE 10MG DAILY SHE STATED THE NURSE HAS BEEN CHECKING HER BP'S 3 TIMES DAILY DM MEDS: LANTUS INSULIN 19 UNITS DAILY HUMALOG INSULIN 10 UNITS 3 TIMES DAILY WITH MEALS [id number] ON 03/01/23 THE PATIENT STATED SHE IS [...] IS NOW SEEING THE DOCTOR AT THE [facility]. SDOH COMPLETED. CM WILL DISCHARGE THE PATIENT FROM THE [facility] BOTTLE BLOWER MGMT. PROGRAM DUE TO PCP CHANGING. Normal [facility] Absolute lymphocyte countOrd ered By: Melissa Reed on 06-20-2023 Lymphocytes Auto (Unsp spec) [#/Vol] 1.72 10*3/uL 0.83-4.51 [facility] Basophil percentageOrdered B y: Melissa Reed on 06-20-2023 Basophils/100 WBC (Bld) 1.0 % 0-1 [facility] Chloride [Moles/Vol] 108 mmol/L 98-107 [facility] Eosinophils/100 WBC (Bld) 7.8 % 0-5 [facility] Glucose [Mass/Vol] 155 mg/dL 74-106 [facility] Comment on above: Fasting Glucose resu lt greater than or equal to 126 mg/dL suggests DIABETES MELLITUS per A.D.A. criteria. Neutrophils (Bld) [#/Vol] 5.3 10*3/uL 2.0-7.7 [facility] Neutrophils/100 WBC (Bld) 61.1 % 47-70 [facility] Potassium [Moles/Vol] 4.0 mmol/L 3.5-5.1 [facility] Sodium [Moles/Vol] 140 mmol/L 136-145 [facility] WBC (Bld) [#/Vol] 8.6 10*3/uL 4.4-11.0 [facility] Blood erythrocytes count (nu mber/volume)Ordered By: Melissa Reed on 06-20-2023 RBC (Bld) [#/Vol] 3.97 10*6/uL 4.2-5.4 [facility] Blood hemoglobin measurement (mass/volume)Ordered By: Melissa Rede on 06-20-2023 Hemoglobin (Bld) [Mass/Vol] 11.0 g/dL 12.0-15.0 [facility] Blood lymphocytes/100 leukoc ytesOrdered By: Melissa Reed on 06-20-2023 Lymphocytes/100 WBC (Bld) 20.0 % 19-41 [facility] Blood monocytes/100 leukocyt esOrdered By: Melissa Reed on 06-20-2023 Monocytes/100 WBC (Bld) 9.9 % 0-10 [facility] Blood platelet mean volumeOr dered By: Melissa Reed on 06-20-2023 Platelet mean volume (Bld) [Entitic vol] 9.9 fL 6.2-12.0 [facility] Determination of erythrocyte mean corpuscular volume (MCV)Ordered By: Melissa Reed on 06-20-2023 MCV (RBC) [Entitic vol] 93.2 fL 81-99 [facility] Hematocrit Auto (Bld) [Volum e fraction]Ordered By: Melissa Reed on 06-20-2023 Hematocrit (Bld) [Volume fraction] 37.0 % 37-47 [facility] - Chemistry and C hemistry - challengeOrdered By: Melissa Reed on 06-20-2023 CO2 [Moles/Vol] 30.0 mmol/L 21.0-32.0 [facility] Cobalamin (Vitamin B12) [Mass/Vol] 430 pg/mL 211-911 [facility] Magnesium [Mass/Vol] 2.0 mg/dL 1.6-2.6 [facility] Urea nitrogen/Creatinine [Mass ratio] 19.8 mg/mg 10-20 [facility] - Hematology and Cell countsOrdered By: Melissa Reed on 06-20-2023 Erythrocyte distribution width (RBC) [Entitic vol] 48.2 fL 35.1-43.9 [facility] Erythrocyte distribution width (RBC) [Ratio] 14.2 % 11.6-14.6 [facility] Immature granulocytes/100 WBC (Bld) 0.200 % 0.0-0.9 [facility] Comment on above: IG% - Immature Granu locytes (promyelocytes, myelocytes and metamyelocytes) > 1% indicates that a LEFT SHIFT is Present. MCH (RBC) [Entitic mass] 27.7 pg 27.0-32.0 [facility] Nucleated RBC/100 WBC (Bld) [Ratio] 0 % 0-5 [facility] MCHC Auto (RBC) [Mass/Vol]Or dered By: Melissa Reed on 06-20-2023 MCHC (RBC) [Mass/Vol] 29.7 g/dL 32-36 [facility] No Panel InformationOrdered By: Melissa Reed on 06-20-2023 Estimated GFR (MDRD) Amer 72 mL/min >60 [facility] Comment on above: GFR Calc Estimated GFR (MDRD) Non-Af Amer 60 mL/min >60 [facility] Comment on above: Non- GFR Calc Thyroid Stimulating Hormone (TSH) 1.57 uIU/mL 0.358-3.74 [facility] Vitamin D 25-Hydroxy 60.6 ng/mL [facility] Comment on above: Vitamin D 25(OH) Sta tus Range Deficiency <20 ng/mL (50nmol/L) Insufficiency 20 - 30 ng/mL (50 - 75 nmol/L) Sufficiency 30 - 100 ng/mL (75 - 250 nmol/L) Toxicity >100 ng/mL (>250 nmol/L) Platelets bldOrdered By: Lillian Reed on 06-20-2023 Platelets (Bld) [#/Vol] 317 10*3/uL 150-450 [facility] Serum or plasma calcium danae urement (mass/volume)Ordered By: Melissa Reed on 06-20-2023 Calcium [Mass/Vol] 8.8 mg/dL 8.5-10.1 [facility] Serum or plasma creatinine m easurement (mass/volume)Ordered By: Melissa Reed on 06-20-2023 Creatinine [Mass/Vol] 0.96 mg/dL 0.55-1.02 [facility] Comment on above: The validity of the calculated GFR & GFRAA in patients over 70 years has not been determined. Clinical correlation is essential. Serum or plasma urea nitroge n measurement (mass/volume)Ordered By: Melissa Reed on 06-20-2023 Urea nitrogen [Mass/Vol] 19 mg/dL 7-18 [facility] Thin prep Papanicolaou smear with manual screeningOrdered By: Melissa Reed on 06-20-2023 Thin prep Papanicolaou smear with manual screening 2 5-15 [facility] Whole blood hemoglobin A1c/t otal hemoglobin ratio (mass fraction)Ordered By: Melissa Reed on 06-20-2023 HbA1c (Bld) [Mass fraction] 6.4 % 3.8-5.6 [facility] Comment on above: Normal < 5.7 % Predi abetic 5.7 - 6.4 % Diabetic >or= 6.5 % Please note range changes. Progress Noteon 06-07-2023 Progress Note CM called and spoke with a staff member at [facility]. The patient is still at the facility. CM will follow-up with the patient once she is discharged to home. Normal [facility] Culture, urineOrdered By: Anastasia Olvera on 05-10-2023 Bacteria identified Cx Nom (U) Klebsiella pneumoniae sp pneum [facility] Bacteria identified Cx Nom (U) Klebsiella pneumoniae sp pneum [facility] No Panel InformationOrdered By: Lambert Olvera on 05-01-2023 Thyroid Stimulating Hormone (TSH) 1.91 uIU/mL 0.358-3.74 [facility] Progress Noteon 04-06-2023 Progress Note EMR [...] was discharged. RECOMMENDED NEXT STEPS: Transferred to [facility] SNF. Continue close monitoring of BG. Avoid nephrotoxins/NSAIDS/bela inh. Levothroid dose decreased. Apresoline started. PMH: RLS, HTN, GI-BLEED, CKD3, DM2, HYPOTHYROID, ANXIETY, DEPRESSION, HYPOKALEMIA, HYPERLIPIDEMIA FOLLOW-UP APPTS: 04/27/23-FAMILY MEDICINE HTN MEDS: AMLODIPINE 10MG DAILY HYDRALAZINE 25MG THREE TIMES DAILY ?CHECKING BP'S DM MEDS: LANTUS INSULIN 19 UNITS DAILY HUMALOG INSULIN 10 UNITS WITH MEALS [id number] ON 03/01/23 ?MONITORING BLOOD SUGARS CM CALLED AND SPOKE WITH THE PT'S SON-MAXIMINO. HE STATED THE PT. IS CURRENTLY ADMITTED TO [facility]. HE STATED THE PT. WILL PROBABLY BE GOING TO AN ASSISTED LIVING FACILITY WHEN SHE IS DISCHARGED DUE TO THE PT. NOT BEING ABLE TO CARE FOR HERSELF ALONE AT HOME. CM WILL FOLLOW-UP WITH THE PT. ONCE SHE IS DISCHARGED FROM SNF. Normal [facility] Basophil percentageOrdered B y: Lambert Olvera on 04-04-2023 Bilirubin [Mass/Vol] 0.30 mg/dL 0.20-1.00 [facility] Comment on above: For patients on eltr ombopag therapy, use of [place] [place] TBIL is not recommended. Chloride [Moles/Vol] 109 mmol/L 98-107 [facility] Glucose [Mass/Vol] 112 mg/dL 74-106 [facility] Comment on above: Fasting Glucose resu lt from 100 to 125 mg/dL suggests IMPAIRED HOMEOSTASIS per A.D.A. criteria. Potassium [Moles/Vol] 4.2 mmol/L 3.5-5.1 [facility] Protein [Mass/Vol] 6.5 g/dL 6.4-8.2 [facility] Sodium [Moles/Vol] 140 mmol/L 136-145 [facility] WBC (Bld) [#/Vol] 8.5 10*3/uL 4.4-11.0 [facility] Blood erythrocytes count (nu mber/volume)Ordered By: Lambert Olvera on 04-04-2023 RBC (Bld) [#/Vol] 4.34 10*6/uL 4.2-5.4 [facility] Blood hemoglobin measurement (mass/volume)Ordered By: Lambert Olvera on 04-04-2023 Hemoglobin (Bld) [Mass/Vol] 11.9 g/dL 12.0-15.0 [facility] Blood platelet mean volumeOr dered By: Lambert Olvera on 04-04-2023 Platelet mean volume (Bld) [Entitic vol] 10.4 fL 6.2-12.0 [facility] Determination of erythrocyte mean corpuscular volume (MCV)Ordered By: Lambert Olvera on 04-04-2023 MCV (RBC) [Entitic vol] 91.9 fL 81-99 [facility] Hematocrit Auto (Bld) [Volum e fraction]Ordered By: Lambert Olvera on 04-04-2023 Hematocrit (Bld) [Volume fraction] 39.9 % 37-47 [facility] Laboratory - Chemistry and C hemistry - challengeOrdered By: Lambert Olvera on 04-04-2023 ALP [Catalytic activity/Vol] 96 U/L 45-117 [facility] ALT [Catalytic activity/Vol] 28 U/L 13-56 [facility] CO2 [Moles/Vol] 27.0 mmol/L 21.0-32.0 [facility] Globulin (S) [Mass/Vol] 3.7 g/dL 2.2-4.2 [facility] Urea nitrogen/Creatinine [Mass ratio] 21.8 mg/mg 10-20 [facility] Laboratory - Hematology and Cell countsOrdered By: Lambert Olvera on 04-04-2023 Erythrocyte distribution width (RBC) [Entitic vol] 47.0 fL 35.1-43.9 [facility] Erythrocyte distribution width (RBC) [Ratio] 13.9 % 11.6-14.6 [facility] MCH (RBC) [Entitic mass] 27.4 pg 27.0-32.0 [facility] MCHC Auto (RBC) [Mass/Vol]Or dered By: Lambert Olvera on 04-04-2023 MCHC (RBC) [Mass/Vol] 29.8 g/dL 32-36 [facility] No Panel InformationOrdered By: Lambert Olvera on 04-04-2023 Estimated GFR (MDRD) Amer 76 mL/min >60 [facility] Comment on above: GFR Calc Estimated GFR (MDRD) Non-Af Amer 63 mL/min >60 [facility] Comment on above: Non- GFR Calc Platelets bldOrdered By: Lisa Olvera on 04-04-2023 Platelets (Bld) [#/Vol] 315 10*3/uL 150-450 [facility] Serum or plasma albumin danae urement (mass/volume)Ordered By: Lambert Olvera on 04-04-2023 Albumin [Mass/Vol] 2.8 g/dL 3.2-5.0 [facility] Serum or plasma albumin/glob ulin mass ratioOrdered By: Lambert Olvera on 04-04-2023 Albumin/Globulin [Mass ratio] 0.8 {ratio} 0.9-2.4 [facility] Serum or plasma calcium danae urement (mass/volume)Ordered By: Lambert Olvera on 04-04-2023 Calcium [Mass/Vol] 8.6 mg/dL 8.5-10.1 [facility] Serum or plasma creatinine m easurement (mass/volume)Ordered By: Lambert Olvera on 04-04-2023 Creatinine [Mass/Vol] 0.92 mg/dL 0.55-1.02 [facility] Comment on above: The validity of the calculated GFR & GFRAA in patients over 70 years has not been determined. Clinical correlation is essential. Serum or plasma urea nitroge n measurement (mass/volume)Ordered By: Lambert Olvera on 04-04-2023 Urea nitrogen [Mass/Vol] 20 mg/dL 7-18 [facility] Thin prep Papanicolaou smear with manual screeningOrdered By: Lambert Olvera on 04-04-2023 Thin prep Papanicolaou smear with manual screening 20 U/L 15-37 [facility] Thin prep Papanicolaou smear with manual screening 4 5-15 [facility] Progress Noteon 03-31-2023 Progress Note THE PT. WAS IDENTIFI ED BY [facility] RN FROM THE [facility] DAILY CENSUS REPORT. CM WILL CONTINUE TO FOLLOW-UP WITH THE PT. FOR ANY ONGOING CM NEEDS. [facility] Basophil percentageOrdered B y: Lambert Olvera on 03-20-2023 Chloride [Moles/Vol] 105 mmol/L 98-107 [facility] Glucose [Mass/Vol] 103 mg/dL 74-106 [facility] Comment on above: Fasting Glucose resu lt from 100 to 125 mg/dL suggests IMPAIRED HOMEOSTASIS per A.D.A. criteria. Potassium [Moles/Vol] 3.7 mmol/L 3.5-5.1 [facility] Sodium [Moles/Vol] 138 mmol/L 136-145 [facility] WBC (Bld) [#/Vol] 8.0 10*3/uL 4.4-11.0 [facility] Blood erythrocytes count (nu mber/volume)Ordered By: Lambert Olvera on 03-20-2023 RBC (Bld) [#/Vol] 3.75 10*6/uL 4.2-5.4 [facility] Blood hemoglobin measurement (mass/volume)Ordered By: Lambert Olvera on 03-20-2023 Hemoglobin (Bld) [Mass/Vol] 10.3 g/dL 12.0-15.0 [facility] Blood platelet mean volumeOr dered By: Lambert Olvera on 03-20-2023 Platelet mean volume (Bld) [Entitic vol] 10.5 fL 6.2-12.0 [facility] Determination of erythrocyte mean corpuscular volume (MCV)Ordered By: Lambert Olvera on 03-20-2023 MCV (RBC) [Entitic vol] 91.7 fL 81-99 [facility] Hematocrit Auto (Bld) [Volum e fraction]Ordered By: Lambert Olvera on 03-20-2023 Hematocrit (Bld) [Volume fraction] 34.4 % 37-47 [facility] Laboratory - Chemistry and C hemistry - challengeOrdered By: Lambert Olvera on 03-20-2023 CO2 [Moles/Vol] 30.0 mmol/L 21.0-32.0 [facility] Urea nitrogen/Creatinine [Mass ratio] 24.2 mg/mg 10-20 [facility] Laboratory - Hematology and Cell countsOrdered By: Lambert Olvera on 03-20-2023 Erythrocyte distribution width (RBC) [Entitic vol] 45.7 fL 35.1-43.9 [facility] Erythrocyte distribution width (RBC) [Ratio] 13.4 % 11.6-14.6 [facility] MCH (RBC) [Entitic mass] 27.5 pg 27.0-32.0 [facility] MCHC Auto (RBC) [Mass/Vol]Or dered By: Lambert Olvera on 03-20-2023 MCHC (RBC) [Mass/Vol] 29.9 g/dL 32-36 [facility] No Panel InformationOrdered By: Lambert Olvera on 03-20-2023 Estimated GFR (MDRD) Amer 70 mL/min >60 [facility] Comment on above: GFR Calc Estimated GFR (MDRD) Non-Af Amer 57 mL/min >60 [facility] Comment on above: Non- GFR Calc Thyroid Stimulating Hormone (TSH) 0.04 uIU/mL 0.358-3.74 [facility] Platelets bldOrdered By: Lisa Olvera on 03-20-2023 Platelets (Bld) [#/Vol] 333 10*3/uL 150-450 [facility] Serum or plasma calcium danae urement (mass/volume)Ordered By: Lambert Olvera on 03-20-2023 Calcium [Mass/Vol] 8.4 mg/dL 8.5-10.1 [facility] Serum or plasma creatinine m easurement (mass/volume)Ordered By: Lambert Olvera on 03-20-2023 Creatinine [Mass/Vol] 0.99 mg/dL 0.55-1.02 [facility] Comment on above: The validity of the calculated GFR & GFRAA in patients over 70 years has not been determined. Clinical correlation is essential. Serum or plasma urea nitroge n measurement (mass/volume)Ordered By: Lambert Olvera on 03-20-2023 Urea nitrogen [Mass/Vol] 24 mg/dL 7-18 [facility] Thin prep Papanicolaou smear with manual screeningOrdered By: Lambert Olvera on 03-20-2023 Thin prep Papanicolaou smear with manual screening 3 5-15 [facility] Absolute lymphocyte countOrd ered By: Baljit Jaffe on 03-18-2023 Lymphocytes Auto (Unsp spec) [#/Vol] 1.42 10*3/uL 0.83-4.51 [facility] Basophil percentageOrdered B y: Baljit Jaffe on 03-18-2023 Basophils/100 WBC (Bld) 0.6 % 0-1 [facility] Chloride [Moles/Vol] 106 mmol/L 98-107 [facility] Eosinophils/100 WBC (Bld) 5.2 % 0-5 [facility] Glucose [Mass/Vol] 111 mg/dL 74-106 [facility] Comment on above: Fasting Glucose resu lt from 100 to 125 mg/dL suggests IMPAIRED HOMEOSTASIS per A.D.A. criteria. Neutrophils (Bld) [#/Vol] 5.0 10*3/uL 2.0-7.7 [facility] Neutrophils/100 WBC (Bld) 65.0 % 47-70 [facility] Potassium [Moles/Vol] 3.7 mmol/L 3.5-5.1 [facility] Sodium [Moles/Vol] 138 mmol/L 136-145 [facility] WBC (Bld) [#/Vol] 7.8 10*3/uL 4.4-11.0 [facility] Blood erythrocytes count (nu mber/volume)Ordered By: Baljit Jaffe on 03-18-2023 RBC (Bld) [#/Vol] 3.84 10*6/uL 4.2-5.4 [facility] Blood hemoglobin measurement (mass/volume)Ordered By: Baljit Jaffe on 03-18-2023 Hemoglobin (Bld) [Mass/Vol] 10.8 g/dL 12.0-15.0 [facility] Blood lymphocytes/100 leukoc ytesOrdered By: Baljit Jaffe on 03-18-2023 Lymphocytes/100 WBC (Bld) 18.3 % 19-41 [facility] Blood monocytes/100 leukocyt esOrdered By: Baljit Jaffe on 03-18-2023 Monocytes/100 WBC (Bld) 10.6 % 0-10 [facility] Blood platelet mean volumeOr dered By: Baljit Jaffe on 03-18-2023 Platelet mean volume (Bld) [Entitic vol] 9.9 fL 6.2-12.0 [facility] Determination of erythrocyte mean corpuscular volume (MCV)Ordered By: Baljit Jaffe on 03-18-2023 MCV (RBC) [Entitic vol] 90.6 fL 81-99 [facility] Glucose Glucometer (BldC) [M ass/Vol]Ordered By: Baljit Jaffe on 03-18-2023 Glucose [Mass/Vol] 111 mg/dL 74-106 [facility] Comment on above: MANAGEMENT OF PATIEN T CARE PER NURSING PROTOCOL Hematocrit Auto (Bld) [Volum e fraction]Ordered By: Baljit Jaffe on 03-18-2023 Hematocrit (Bld) [Volume fraction] 34.8 % 37-47 [facility] Laboratory - Chemistry and C hemistry - challengeOrdered By: Baljit Jaffe on 03-18-2023 CO2 [Moles/Vol] 27.0 mmol/L 21.0-32.0 [facility] Urea nitrogen/Creatinine [Mass ratio] 30.8 mg/mg 10-20 [facility] Laboratory - Hematology and Cell countsOrdered By: Baljit Jaffe on 03-18-2023 Erythrocyte distribution width (RBC) [Entitic vol] 44.9 fL 35.1-43.9 [facility] Erythrocyte distribution width (RBC) [Ratio] 13.4 % 11.6-14.6 [facility] Immature granulocytes/100 WBC (Bld) 0.300 % 0.0-0.9 [facility] Comment on above: IG% - Immature Granu locytes (promyelocytes, myelocytes and metamyelocytes) > 1% indicates that a LEFT SHIFT is Present. MCH (RBC) [Entitic mass] 28.1 pg 27.0-32.0 [facility] Nucleated RBC/100 WBC (Bld) [Ratio] 0 % 0-5 [facility] MCHC Auto (RBC) [Mass/Vol]Or dered By: Baljit Jaffe on 03-18-2023 MCHC (RBC) [Mass/Vol] 31.0 g/dL 32-36 [facility] No Panel InformationOrdered By: Baljit Jaffe on 03-18-2023 Estimated Creatinine Clearance Calc 41.46 ml/min [facility] Estimated GFR (MDRD) Amer 64 mL/min >60 [facility] Comment on above: GFR Calc Estimated GFR (MDRD) Non-Af Amer 53 mL/min >60 [facility] Comment on above: Non- GFR Calc Platelets bldOrdered By: Baljit Jaffe on 03-18-2023 Platelets (Bld) [#/Vol] 333 10*3/uL 150-450 [facility] Serum or plasma calcium danae urement (mass/volume)Ordered By: Baljit Jaffe on 03-18-2023 Calcium [Mass/Vol] 8.4 mg/dL 8.5-10.1 [facility] Serum or plasma creatinine m easurement (mass/volume)Ordered By: Baljit Jaffe on 03-18-2023 Creatinine [Mass/Vol] 1.07 mg/dL 0.55-1.02 [facility] Comment on above: The validity of the calculated GFR & GFRAA in patients over 70 years has not been determined. Clinical correlation is essential. Serum or plasma urea nitroge n measurement (mass/volume)Ordered By: Baljit Jaffe on 03-18-2023 Urea nitrogen [Mass/Vol] 33 mg/dL 7-18 [facility] Thin prep Papanicolaou smear with manual screeningOrdered By: Baljit Jaffe on 03-18-2023 Thin prep Papanicolaou smear with manual screening 5 5-15 [facility] COVID-19 virus antigen assay Ordered By: Baljit Jaffe on 03-17-2023 SARS-CoV-2 (COVID-19) Ag IA.rapid Ql (Resp) [facility] SARS-CoV-2 (COVID-19) Ag IA.rapid Ql (Resp) [facility] Gram stain for investigation of transfusion reactionOrdered By: Baljit Jaffe on 03-17-2023 Microscopic observation Gram stain Nom (Unsp spec) [facility] Microscopic observation Gram stain Nom (Unsp spec) [facility] Routine wound cultureOrdered By: Baljit Jaffe on 03-17-2023 Bacteria identified Cx Nom (Wound) No growth aerobically. [facility] Bacteria identified Cx Nom (Wound) No growth aerobically. [facility] 36on 03-15-2023 36 Sent via [place]. [facility] 36 Name of caller: Ricco noel [facility] Contact phone number: [phone] Relationship to Patient: [facility] Provider: Dr Lopez Practice: [facility] location Chief Complaint/Reason for Call: 03/15/23 Margaret calling to ask the office /provider about her Immunization Records she stated pt received Pneumococcal 23 on 04/10/21 but she is asking if anymore was given to pt if so, she will need those records faxed over to [phone] pls advise Best time of day caller can be reached: AM Patient advised that office/PCP has 24-48 business hours to return their call: Yes [facility] CARECOORDon 03-06-2023 [facility] Patient Choice Patient Name: RADHA SANDOVAL Date of : 1945 Normal [facility] Bacteria identified Cx Nom ( U)Ordered By: Kalpesh Dillon on 03-03-2023 Interpretation and review of laboratory results [facility] Discharge med list transmitted [facility] Normal [facility] Spoke with pt at bedside regarding POA, pt states she is not interested at this time to complete it and would consider completing at [facility] - did call Rafaela at [facility] to update her as well. 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 Will notify RN and TCC of this in rounds. Notified patient's son via phone of transportation time. SW remains available if any other needs concerns arise. [facility] You are not granted access to view this sensitive note. Normal [facility] Insurance auth obtai shaina for [facility], updated Dr Finch notified via [employer] Chat. Normal [facility] CBC W Auto Differential pane l (Bld)on 03-03-2023 Basophils (Bld) [#/Vol] 0.1 10*3/uL 0.0 - 0.2 10*3/uL [facility] Basophils/100 WBC (Bld) 0.6 % 0.0 - 2.0 % [facility] Eosinophils (Bld) [#/Vol] 0.4 10*3/uL 0.0 - 0.5 10*3/uL [facility] Eosinophils/100 WBC (Bld) 4.4 % 1.0 - 6.0 % [facility] Erythrocyte distribution width (RBC) [Ratio] 13.4 % 11.5 - 14.5 % [facility] Hematocrit (Bld) [Volume fraction] 35.5 % 35.0 - 47.0 % [facility] Hemoglobin (Bld) [Mass/Vol] 11.6 g/dL Low 11.7 - 16.0 g/dL [facility] Interpretation and review of laboratory results Abnormal [facility] Lymphocytes (Bld) [#/Vol] 2.0 10*3/uL 1.0 - 4.3 10*3/uL [facility] Lymphocytes/100 WBC (Bld) 22.6 % 20.0 - 40.0 % [facility] MCH (RBC) [Entitic mass] 27.7 pg 26.0 - 34.0 pg [facility] MCHC (RBC) [Mass/Vol] 32.7 % 32.0 - 36.0 % [facility] MCV (RBC) [Entitic vol] 84.8 fL 80.0 - 98.0 fL [facility] Monocytes (Bld) [#/Vol] 1.0 10*3/uL High 0.0 - 0.8 10*3/uL [facility] Monocytes/100 WBC (Bld) 11.6 % High 2.0 - 10.0 % [facility] Neutrophils (Bld) [#/Vol] 5.4 10*3/uL 1.8 - 7.0 10*3/uL [facility] Neutrophils/100 WBC (Bld) 60.8 % 40.0 - 80.0 % [facility] Nucleated RBC/100 WBC (Bld) [Ratio] 0.0 % [facility] Platelet mean volume (Bld) [Entitic vol] 7.9 fL 7.4 - 12.4 fL [facility] Platelets (Bld) [#/Vol] 257 10*3/uL 140 - 440 10*3/uL [facility] RBC (Bld) [#/Vol] 4.19 10*6/uL 3.8 - 5.20 10*6/uL [facility] WBC (Bld) [#/Vol] 9.0 10*3/uL 3.6 - 10.7 10*3/uL [facility] CBC WITH AUTO DIFFERENTIALon 03-03-2023 Basophils (Bld) [#/Vol] 0.1 10*3/uL Normal 0.0-0.2 [facility] Comment on above: Performed By: #### L [id number] ####Supervisor Microwave: MARTIN REYES ([id number])[facility] (SBHLAB)[address] Basophils/100 WBC (Bld) 0.6 % Normal 0.0-2.0 [facility] Comment on above: Performed By: #### L [id number] ####Supervisor Microwave: MARTIN AMBROSEJOSE R ([id number])[facility] (SBHLAB)[address] Eosinophils (Bld) [#/Vol] 0.4 10*3/uL Normal 0.0-0.5 [facility] Comment on above: Performed By: #### L [id number] ####Supervisor Microwave: MARTIN AMBROSEJOSE R ([id number])[facility] (SBHLAB)[address] Eosinophils/100 WBC (Bld) 4.4 % Normal 1.0-6.0 [facility] Comment on above: Performed By: #### L [id number] ####Supervisor Microwave: MARTIN AMBROSEJOSE R ([id number])[facility] (SBHLAB)[address] [place] [address] Erythrocyte distribution width (RBC) [Ratio] 13.4 % Normal 11.5-14.5 [facility] Comment on above: Performed By: #### L [id number] ####Supervisor Microwave: MARTIN AMBROSEJOSE R ([id number])[facility] [place] ([facility])[address] ERYTHROCYTE MEAN CORPUSCULAR HEMOGLOBIN CONCENTRATION (G/DL) BY AUTOMATED 32.7 % Normal 32.0-36.0 [facility] Comment on above: Performed By: #### L [id number] ####Supervisor Microwave: MARTIN REYES ([id number])[facility] [place] ([facility])[address] Hematocrit (Bld) [Volume fraction] 35.5 % Normal 35.0-47.0 [facility] Comment on above: Performed By: #### L [id number] ####Supervisor Microwave: MARTIN AMBROSEJOSE R ([id number])[facility] [place] (SB[facility]AB)[address] Hemoglobin (Bld) [Mass/Vol] 11.6 g/dL Low 11.7-16.0 [facility] Comment on above: Performed By: #### L [id number] ####Supervisor Microwave: MARTIN REYES ([id number])[facility] (SB[facility])[address] Lymphocytes (Bld) [#/Vol] 2.0 10*3/uL Normal 1.0-4.3 [facility] Comment on above: Performed By: #### L [id number] ####Supervisor Microwave: MARTIN AMBROSEJOSE R ([id number])[facility] ([facility])[address] Lymphocytes/100 WBC (Bld) 22.6 % Normal 20.0-40.0 [facility] Comment on above: Performed By: #### L [id number] ####Supervisor Microwave: MARTIN AMBROSEJOSE R ([id number])[facility] [place] ([facility])[address] MCH (RBC) [Entitic mass] 27.7 pg Normal 26.0-34.0 [facility] Comment on above: Performed By: #### L [id number] ####Supervisor Microwave: MARTIN REYES ([id number])[facility] [place] ([facility])[address] MCV (RBC) [Entitic vol] 84.8 fL Normal 80.0-98.0 [facility] Comment on above: Performed By: #### L [id number] ####Supervisor Microwave: MARTIN REYES ([id number])[facility] [place] (SBHLAB)[address] Monocytes (Bld) [#/Vol] 1.0 10*3/uL High 0.0-0.8 [facility] Comment on above: Performed By: #### L [id number] ####Supervisor Microwave: MARTIN REYES ([id number])[facility] (SB[facility]AB)[address] Monocytes/100 WBC (Bld) 11.6 % High 2.0-10.0 [facility] Comment on above: Performed By: #### L [id number] ####Supervisor Microwave: MARTIN REYES ([id number])[facility] ([facility])[address] Neutrophils (Bld) [#/Vol] 5.4 10*3/uL Normal 1.8-7.0 [facility] Comment on above: Performed By: #### L [id number] ####Supervisor Microwave: MARTIN REYES ([id number])[facility] (SB[facility])[address] Neutrophils/100 WBC (Bld) 60.8 % Normal 40.0-80.0 [facility] Comment on above: Performed By: #### L [id number] ####Supervisor Microwave: MARTIN REYES ([id number])[facility] (SB[facility]AB)[address] NRBC (PER 100 WBCS) BY AUTOMATED COUNT 0.0 /100 WBCs Normal 0.0-2.0 [facility] Comment on above: Performed By: #### L [id number] ####Supervisor Microwave: MARTIN REYES ([id number])[facility] (SB[facility]AB)[address] [place] [address] [place] Platelet mean volume (Bld) [Entitic vol] 7.9 fL Normal 7.4-12.4 [facility] Comment on above: Performed By: #### L [id number] ####Supervisor Microwave: MARTIN REYES ([id number])[facility] ([facility])[address] PLATELETS (10*3/UL) IN BLOOD AUTOMATED COUNT 257 10*3/uL Normal 140-440 [facility] Comment on above: Performed By: #### L [id number] ####Supervisor Microwave: MARITN REYES ([id number])[facility] [place] ([facility])[address] RBC (Bld) [#/Vol] 4.19 10*6/uL Normal 3.8-5.20 [facility] Comment on above: Performed By: #### L [id number] ####Supervisor Microwave: MARTIN REYES ([id number])[facility] ([facility])[address] WBC (Bld) [#/Vol] 9.0 10*3/uL Normal 3.6-10.7 [facility] Comment on above: Performed By: #### L [id number] ####Supervisor Microwave: MARTIN REYES ([id number])[facility] [place] ([facility])[address] COMPREHENSIVE METABOLIC PANE Real 03-03-2023 Albumin [Mass/Vol] 3.2 g/dL Low 3.5-5.0 [facility] Comment on above: Performed By: #### L [id number] ####Supervisor Microwave: MARTIN REYES ([phone])[facility] (SBHLAB)[address] ALP [Catalytic activity/Vol] 94 U/L Normal 38-126 [facility] Comment on above: Performed By: #### L AB17 ####Supervisor Microwave: MARTIN REYES ([phone])[facility] [place] (SBHLAB)[address] ALT [Catalytic activity/Vol] 12 U/L Normal 0-34 [facility] Comment on above: Performed By: #### L AB17 ####Supervisor Microwave: MARTIN REYES ([phone])[facility] [place] (SBHLAB)[address] Anion gap [Moles/Vol] 2 mmol/L Low 3-13 [facility] Comment on above: Performed By: #### L AB17 ####Supervisor Microwave: MARTIN REYES ([phone])[facility] [place] (SB[facility]AB)[address] AST [Catalytic activity/Vol] 34 U/L Normal 15-46 [facility] Comment on above: Performed By: #### L AB17 ####Supervisor Microwave: MARTIN REYES ([phone])[facility] [place] (SB[facility]AB)[address] Bilirubin [Mass/Vol] 0.3 mg/dL Normal 0.2-1.3 [facility] Comment on above: Performed By: #### L AB17 ####Supervisor Microwave: MARTIN REYES ([phone])[facility] [place] (SBHLAB)[address] Calcium [Mass/Vol] 8.1 mg/dL Low 8.4-10.4 [facility] Comment on above: Performed By: #### L AB17 ####Supervisor Microwave: MARTIN REYES ([phone])[facility] [place] (SBHLAB)[address] [place] [address] [place] Chloride [Moles/Vol] 102 mmol/L Normal 98-107 [facility] Comment on above: Performed By: #### L AB17 ####Supervisor Microwave: MARTIN REYES ([phone])[facility] [place] (SB[facility]AB)[address] [place] [address] [place] CO2 [Moles/Vol] 30 mmol/L Normal 22-30 [facility] Comment on above: Performed By: #### L AB17 ####Supervisor Microwave: MARTIN REYES ([phone])[facility] [place] (SBHLAB)[address] [place] [address] [place] Creatinine [Mass/Vol] 0.82 mg/dL Normal 0.52-1.04 [facility] Comment on above: Performed By: #### L AB17 ####Supervisor Microwave: MARTIN REYES ([phone])[facility] (SBHLAB)[address] GLOMERULAR FILTRATION RATE ML/MIN/1.73 SQ M.PREDICTED 72.9 mL/min/1.73m*2 Normal >60.0 [facility] Comment on above: Result Comment: Calc ulation based on the Chronic Kidney Disease Epidemiology Collaboration (CKD-EPI) equation refit without adjustment for race Performed By: #### L AB17 ####Supervisor Microwave: MARTIN REYES ([phone])[facility]ITAL[facility]ENTER[facility] (SBAB)[address] Glucose [Mass/Vol] 125 mg/dL High 70-100 [facility] Comment on above: Performed By: #### L AB17 ####Supervisor Microwave: MARTIN REYES ([phone])[facility] (SBHLAB)[address] Potassium [Moles/Vol] 3.7 mmol/L Normal 3.5-5.1 [facility] Comment on above: Performed By: #### L AB17 ####Supervisor Microwave: MARTIN REYES ([phone])[facility] (SBHLAB)[address] Protein [Mass/Vol] 6.2 g/dL Low 6.3-8.2 [facility] Comment on above: Performed By: #### L AB17 ####Supervisor Microwave: MARTIN REYES ([phone])[facility] (SBHLAB)[address] [place] [address] [place] Sodium [Moles/Vol] 134 mmol/L Low 135-145 [facility] Comment on above: Performed By: #### L AB17 ####Supervisor Microwave: MARTIN REYES ([phone])[facility] (SBHLAB)[address] Urea nitrogen [Mass/Vol] 15 mg/dL Normal 7-17 [facility] Comment on above: Performed By: #### L AB17 ####Supervisor Microwave: MARTIN REYES ([phone])[facility] (SBHLAB)[address] Comprehensive metabolic 1998 panelon 03-03-2023 Albumin [Mass/Vol] 3.2 g/dL Low 3.5 - 5.0 g/dL [facility] ALP [Catalytic activity/Vol] 94 U/L 38 - 126 U/L [facility] ALT [Catalytic activity/Vol] 12 U/L 0 - 34 U/L [facility] Anion gap [Moles/Vol] 2 mmol/L Low 3 - 13 mmol/L [facility] AST [Catalytic activity/Vol] 34 U/L 15 - 46 U/L [facility] Bilirubin [Mass/Vol] 0.3 mg/dL 0.2 - 1 .3 mg/dL [facility] Calcium [Mass/Vol] 8.1 mg/dL Low 8.4 - 10. 4 mg/dL [facility] Chloride [Moles/Vol] 102 mmol/L 98 - 10 7 mmol/L [facility] CO2 [Moles/Vol] 30 mmol/L 22 - 30 mmol/L [facility] Creatinine [Mass/Vol] 0.82 mg/dL 0.52 - 1.04 mg/dL [facility] GFR/1.73 sq M.predicted MDRD (S/P/Bld) [Vol rate/Area] 72.9 mL/min/{1.73_m2} - [facility] Comment on above: Calculation based on the Chronic Kidney Disease Epidemiology Collaboration (CKD-EPI) equation refit without adjustment for race Glucose [Mass/Vol] 125 mg/dL High 70 - 100 mg/dL [facility] Interpretation and review of laboratory results Abnormal [facility] Potassium [Moles/Vol] 3.7 mmol/L 3.5 - 5.1 mmol/L [facility] Protein [Mass/Vol] 6.2 g/dL Low 6.3 - 8.2 g/dL [facility] Sodium [Moles/Vol] 134 mmol/L Low 135 - 145 mmol/L [facility] Urea nitrogen [Mass/Vol] 15 mg/dL 7 - 17 mg/dL [facility] POCT glucose meteron 023 Glucose [Mass/Vol] 215 mg/dL High 70 - 100 mg/dL [facility] Interpretation and review of laboratory results Abnormal [facility] Performed by: [facility], [address] [place] [facility] [address] CLIA ID: [id number] [facility] Glucose [Mass/Vol] 158 mg/dL High 70 - 100 mg/dL [facility] Interpretation and review of laboratory results Abnormal [facility] Performed by: [facility], [address], [facility] [address] CLIA ID: [id number] [facility] Progress Noteon 03-03-2023 Progress Note Discharged via ambulance to [facility] Normal [facility] Progress Note Report called to carolina garcia at [facility] at [phone] Normal [facility] Urine cultureOrdered By: Sanford Dillon on 03-03-2023 Bacteria identified Cx Nom (U) >100,000 CFU/mL Escherichia coli Abnormal [facility] 25-hydroxyvitamin D3 [Mass/V ol]on 03-02-2023 Therapy is based on measurement of Total 25-OHD with the following classification levels: Less than 20 ng/mL: Indicative of Vit D deficiency 20-30 ng/mL: Suggests Vit D insufficiency Optimal: Greater than or equal to 30 ng/mL Test performed by FireScope Competitive Immunoassay, measuring Total Vitamin D, not individual fractions. [facility] CARECOORDon 03-02-2023 CARESABINEFORT APACHE Received a call from Rafaela at [facility], they are able to accept, pt agreeable. supervisor order takers tasked to start [employer] auth for [facility] at this time Normal [facility] CBC W Auto Differential pane l (Bld)Ordered By: Wendy Bruce on 03-02-2023 Basophils (Bld) [#/Vol] 0.1 10*3/uL 0.0 - 0.2 10*3/uL [facility] Basophils/100 WBC (Bld) 0.7 % 0.0 - 2.0 % [facility] Eosinophils (Bld) [#/Vol] 0.4 10*3/uL 0.0 - 0.5 10*3/uL [facility] Eosinophils/100 WBC (Bld) 3.9 % 1.0 - 6.0 % [facility] Erythrocyte distribution width (RBC) [Ratio] 13.7 % 11.5 - 14.5 % [facility] Hematocrit (Bld) [Volume fraction] 36.1 % 35.0 - 47.0 % [facility] Hemoglobin (Bld) [Mass/Vol] 11.9 g/dL 11.7 - 16.0 g/dL [facility] Interpretation and review of laboratory results Abnormal [facility] Lymphocytes (Bld) [#/Vol] 1.9 10*3/uL 1.0 - 4.3 10*3/uL [facility] Lymphocytes/100 WBC (Bld) 20.1 % 20.0 - 40.0 % [facility] MCH (RBC) [Entitic mass] 28.5 pg 26.0 - 34.0 pg [facility] MCHC (RBC) [Mass/Vol] 32.8 % 32.0 - 36.0 % [facility] MCV (RBC) [Entitic vol] 86.8 fL 80.0 - 98.0 fL [facility] Monocytes (Bld) [#/Vol] 1.1 10*3/uL High 0.0 - 0.8 10*3/uL [facility] Monocytes/100 WBC (Bld) 11.4 % High 2.0 - 10.0 % [facility] Neutrophils (Bld) [#/Vol] 6.1 10*3/uL 1.8 - 7.0 10*3/uL [facility] Neutrophils/100 WBC (Bld) 63.9 % 40.0 - 80.0 % [facility] Nucleated RBC/100 WBC (Bld) [Ratio] 0.1 % [facility] Platelet mean volume (Bld) [Entitic vol] 8.4 fL 7.4 - 12.4 fL [facility] Platelets (Bld) [#/Vol] 252 10*3/uL 140 - 440 10*3/uL [facility] RBC (Bld) [#/Vol] 4.16 10*6/uL 3.8 - 5.20 10*6/uL [facility] WBC (Bld) [#/Vol] 9.5 10*3/uL 3.6 - 10.7 10*3/uL [facility] CBC WITH AUTO DIFFERENTIALon 03-02-2023 Basophils (Bld) [#/Vol] 0.1 10*3/uL Normal 0.0-0.2 [facility] Comment on above: Performed By: #### L [id number] ####Supervisor Microwave: MARTIN REYES ([phone])[facility] [place] (SBHLAB)[address] Basophils/100 WBC (Bld) 0.7 % Normal 0.0-2.0 [facility] Comment on above: Performed By: #### L [id number] ####Supervisor Microwave: MARTIN REYES ([phone])[facility] [place] (SBHLAB)[address] [place] [address] Eosinophils (Bld) [#/Vol] 0.4 10*3/uL Normal 0.0-0.5 [facility] Comment on above: Performed By: #### L [id number] ####Supervisor Microwave: MARTIN REYES ([phone])[facility] [place] (SBHLAB)[address] [place] [address] Eosinophils/100 WBC (Bld) 3.9 % Normal 1.0-6.0 [facility] Comment on above: Performed By: #### L [id number] ####Supervisor Microwave: MARTIN REYES ([phone])[facility] [place] (SBHLAB)[address] [place] [address] Erythrocyte distribution width (RBC) [Ratio] 13.7 % Normal 11.5-14.5 [facility] Comment on above: Performed By: #### L [id number] ####Supervisor Microwave: MARTIN REYES ([phone])[facility] (SBHLAB)[address] [place] [address] ERYTHROCYTE MEAN CORPUSCULAR HEMOGLOBIN CONCENTRATION (G/DL) BY AUTOMATED 32.8 % Normal 32.0-36.0 [facility] Comment on above: Performed By: #### L [id number] ####Supervisor Microwave: MARTIN HUANateJOSE R ([phone])[facility]ITAL[facility] [place] (SBAB)[address] [place] [address] Hematocrit (Bld) [Volume fraction] 36.1 % Normal 35.0-47.0 [facility] Comment on above: Performed By: #### L [id number] ####Supervisor Microwave: MARTIN AMBROSEJOSE R ([phone])[facility] ([facility])[address] [place] [address] Hemoglobin (Bld) [Mass/Vol] 11.9 g/dL Normal 11.7-16.0 [facility] Comment on above: Performed By: #### L [id number] ####Supervisor Microwave: MARTIN ERIC ([phone])[facility] ([facility])[address] [place] [address] Lymphocytes (Bld) [#/Vol] 1.9 10*3/uL Normal 1.0-4.3 [facility] Comment on above: Performed By: #### L [id number] ####Supervisor Microwave: MARTIN REYES ([phone])[facility] ([facility])[address] [place] [address] Lymphocytes/100 WBC (Bld) 20.1 % Normal 20.0-40.0 [facility] Comment on above: Performed By: #### L [id number] ####Supervisor Microwave: MARTIN REYES ([phone])[facility] ([facility])[address] [place] [address] MCH (RBC) [Entitic mass] 28.5 pg Normal 26.0-34.0 [facility] Comment on above: Performed By: #### L [id number] ####Supervisor Microwave: MARTIN AMBROSEJOSE R ([phone])[facility] ([facility])[address] [place] [address] MCV (RBC) [Entitic vol] 86.8 fL Normal 80.0-98.0 [facility] Comment on above: Performed By: #### L [id number] ####Supervisor Microwave: MARTIN REYES ([phone])[facility] [place] (SBHLAB)[address] Monocytes (Bld) [#/Vol] 1.1 10*3/uL High 0.0-0.8 [facility] Comment on above: Performed By: #### L [id number] ####Supervisor Microwave: MARTIN AMBROSEJOSE R ([phone])[facility] [place] (SBHLAB)[address] Monocytes/100 WBC (Bld) 11.4 % High 2.0-10.0 [facility] Comment on above: Performed By: #### L [id number] ####Supervisor Microwave: MARTIN AMBROSEJOSE R ([phone])[facility] [place] (SBHLAB)[address] Neutrophils (Bld) [#/Vol] 6.1 10*3/uL Normal 1.8-7.0 [facility] Comment on above: Performed By: #### L [id number] ####Supervisor Microwave: MARTIN AMBROSEJOSE R ([phone])[facility] [place] (SBHLAB)[address] Neutrophils/100 WBC (Bld) 63.9 % Normal 40.0-80.0 [facility] Comment on above: Performed By: #### L [id number] ####Supervisor Microwave: MARTIN REYES ([phone])[facility] [place] (SBHLAB)[address] NRBC (PER 100 WBCS) BY AUTOMATED COUNT 0.1 /100 WBCs Normal 0.0-2.0 [facility] Comment on above: Performed By: #### L [id number] ####Supervisor Microwave: MARTIN REYES ([phone])[facility] [place] (SBHLAB)[address] Platelet mean volume (Bld) [Entitic vol] 8.4 fL Normal 7.4-12.4 [facility] Comment on above: Performed By: #### L [id number] ####Supervisor Microwave: MARTIN REYES ([phone])[facility] (SBHLAB)[address] PLATELETS (10*3/UL) IN BLOOD AUTOMATED COUNT 252 10*3/uL Normal 140-440 [facility] Comment on above: Performed By: #### L [id number] ####Supervisor Microwave: MARTIN REYES ([phone])[facility] (SBHLAB)[address] RBC (Bld) [#/Vol] 4.16 10*6/uL Normal 3.8-5.20 [facility] Comment on above: Performed By: #### L [id number] ####Supervisor Microwave: MARTIN REYES ([phone])[facility] (SBHLAB)[address] WBC (Bld) [#/Vol] 9.5 10*3/uL Normal 3.6-10.7 [facility] Comment on above: Performed By: #### L [id number] ####Supervisor Microwave: MARTIN REYES ([phone])[facility] (SBHLAB)[address] COMPREHENSIVE METABOLIC PANE Real 03-02-2023 Albumin [Mass/Vol] 3.1 g/dL Low 3.5-5.0 [facility] Comment on above: Performed By: #### L AB127, LAB17, [id number] ####Supervisor Microwave: MARTIN REYES ([phone])[facility] [place] (SB[facility]AB)[address] ALP [Catalytic activity/Vol] 100 U/L Normal 38-126 [facility] Comment on above: Performed By: #### L AB127, LAB17, [id number] ####Supervisor Microwave: MARTIN REYES ([phone])[facility] YINGN (SBHLAB)[address] ALT [Catalytic activity/Vol] 13 U/L Normal 0-34 [facility] Comment on above: Performed By: #### Eduardo TEAGUE, LAB17, [id number] ####Supervisor Microwave: MARTIN REYES ([phone])[facility]ITAL[facility] [place]USTN (SBHLAB)[address] Anion gap [Moles/Vol] 3 mmol/L Normal 3-13 [facility] Comment on above: Performed By: #### Eduardo TEAGUE, LAB17, [id number] ####Supervisor Microwave: MARTIN REYES ([phone])[facility] (SBHLAB)[address] AST [Catalytic activity/Vol] 22 U/L Normal 15-46 [facility] Comment on above: Performed By: #### Eduardo TEAGUE, LAB17, [id number] ####Supervisor Microwave: MARTIN REYES ([phone])[facility] (SBHLAB)[address] Bilirubin [Mass/Vol] 0.4 mg/dL Normal 0.2-1.3 [facility] Comment on above: Performed By: #### Eduardo TEAGUE, LAB17, [id number] ####Supervisor Microwave: MARTIN REYES ([phone])[facility] (SBHLAB)[address] Calcium [Mass/Vol] 8.4 mg/dL Normal 8.4-10.4 [facility] Comment on above: Performed By: #### Eduardo TEAGUE, LAB17, [id number] ####Supervisor Microwave: MARTIN REYES ([phone])[facility] (SBHLAB)[address] Chloride [Moles/Vol] 105 mmol/L Normal 98-107 [facility] Comment on above: Performed By: #### Eduardo TEAGUE, LAB17, [id number] ####Supervisor Microwave: MARTIN REYES ([phone])[facility] [place] (SBHLAB)[address] [place] [address] [place] CO2 [Moles/Vol] 27 mmol/L Normal 22-30 [facility] Comment on above: Performed By: #### Eduardo TEAGUE, LAB17, [id number] ####Supervisor Microwave: MARTIN REYES ([phone])[facility] (SBHLAB)[address] Creatinine [Mass/Vol] 0.77 mg/dL Normal 0.52-1.04 [facility] Comment on above: Performed By: #### Eduardo TEAGUE, LAB17, [id number] ####Supervisor Microwave: MARTIN REYES ([phone])[facility] (SBHLAB)[address] [place] [address] [place] GLOMERULAR FILTRATION RATE ML/MIN/1.73 SQ M.PREDICTED 78.6 mL/min/1.73m*2 Normal >60.0 [facility] Comment on above: Result Comment: Calc ulation based on the Chronic Kidney Disease Epidemiology Collaboration (CKD-EPI) equation refit without adjustment for race Performed By: #### Eduardo TEAGUE, LAB17, [id number] ####Supervisor Microwave: MARTIN REYES ([phone])[facility] (SBHLAB)[address] [place] [address] [place] Glucose [Mass/Vol] 97 mg/dL Normal 70-100 [facility] Comment on above: Performed By: #### Eduardo TEAGUE, LAB17, [id number] ####Supervisor Microwave: MARTIN REYES ([phone])[facility] (SBHLAB)[address] [place] [address] [place] Potassium [Moles/Vol] 4.1 mmol/L Normal 3.5-5.1 [facility] Comment on above: Performed By: #### Eduardo TEAGUE, LAB17, [id number] ####Supervisor Microwave: MARTIN REYES ([phone])[facility] (SBHLAB)[address] [place] [address] [place] Protein [Mass/Vol] 5.8 g/dL Low 6.3-8.2 [facility] Comment on above: Performed By: #### L AB127, LAB17, [id number] ####Supervisor Microwave: MARTIN REYES ([phone])[facility] (SB[facility]AB)[address] Sodium [Moles/Vol] 135 mmol/L Normal 135-145 [facility] Comment on above: Performed By: #### Eduardo AB127, LAB17, [id number] ####Supervisor Microwave: MARTIN REYES ([phone])[facility] (SBHLAB)[address] Urea nitrogen [Mass/Vol] 15 mg/dL Normal 7-17 [facility] Comment on above: Performed By: #### L AB127, LAB17, [id number] ####Supervisor Microwave: MARTIN REYES ([phone])[facility] (SBHLAB)[address] [place] [address] Comprehensive metabolic 1998 panelon 03-02-2023 Albumin [Mass/Vol] 3.1 g/dL Low 3.5 - 5.0 g/dL [facility] ALP [Catalytic activity/Vol] 100 U/L 38 - 126 U/L [facility] ALT [Catalytic activity/Vol] 13 U/L 0 - 34 U/L [facility] Anion gap [Moles/Vol] 3 mmol/L 3 - 13 mmol/L [facility] AST [Catalytic activity/Vol] 22 U/L 15 - 46 U/L [facility] Bilirubin [Mass/Vol] 0.4 mg/dL 0.2 - 1 .3 mg/dL [facility] Calcium [Mass/Vol] 8.4 mg/dL 8.4 - 10. 4 mg/dL [facility] Chloride [Moles/Vol] 105 mmol/L 98 - 10 7 mmol/L [facility] CO2 [Moles/Vol] 27 mmol/L 22 - 30 mmol/L [facility] Creatinine [Mass/Vol] 0.77 mg/dL 0.52 - 1.04 mg/dL [facility] GFR/1.73 sq M.predicted MDRD (S/P/Bld) [Vol rate/Area] 78.6 mL/min/{1.73_m2} - PINF [facility] Comment on above: Calculation based on the Chronic Kidney Disease Epidemiology Collaboration (CKD-EPI) equation refit without adjustment for race Glucose [Mass/Vol] 97 mg/dL 70 - 100 mg/dL [facility] Interpretation and review of laboratory results Abnormal [facility] Potassium [Moles/Vol] 4.1 mmol/L 3.5 - 5.1 mmol/L [facility] Protein [Mass/Vol] 5.8 g/dL Low 6.3 - 8.2 g/dL [facility] Sodium [Moles/Vol] 135 mmol/L 135 - 145 mmol/L [facility] Urea nitrogen [Mass/Vol] 15 mg/dL 7 - 17 mg/dL [facility] FREE T4on 03-02-2023 Free T4 [Mass/Vol] 3.28 ng/dL High 0.78-2.19 [facility] Comment on above: Performed By: #### L AB127, LAB17, [id number] ####Supervisor Microwave: MARTIN REYES ([phone])[facility] (SBHLAB)[address] [place] [address] Free T4 [Mass/Vol]on 023 Free T4 Dialysis [Mass/Vol] 3.28 ng/dL High 0.78 - 2.19 ng/dL [facility] No Panel Informationon 03-02 Interpretation and review of laboratory results Abnormal [facility] POCT glucose meteron 023 Glucose [Mass/Vol] 175 mg/dL High 70 - 100 mg/dL [facility] Interpretation and review of laboratory results Abnormal [facility] Performed by: [facility], [address] [facility] [address] CLIA ID: [id number] [facility] Glucose [Mass/Vol] 214 mg/dL High 70 - 100 mg/dL [facility] Interpretation and review of laboratory results Abnormal [facility] Performed by: [facility], [address] [facility] [address] CLIA ID: [id number] [facility] Glucose [Mass/Vol] 141 mg/dL High 70 - 100 mg/dL [employer] Interpretation and review of laboratory results Abnormal [facility] Performed by: [facility] [place] [facility], [address], [place] [address] CLIA ID: [id number] [employer] Progress Noteon 03-02-2023 Progress Note Department of Sourcing Coordinator al Medicine Division of Endocrinology, Diabetes, & Metabolism Endocrinology Note Patient Name: Radha Sandoval : 1945 AGE: 77 y.o. Room/Bed: [facility]/[address] Admission Date: 02/28/2023 Visit Date: 03/02/2023 Reason for Endocrine Consult: DM-Uncontrolled Provider/Team Requesting Consult: Dr. Finch PCP: Shiv Lopez MD Outpt Logging Operations Inspector: No ASSESSMENT: Type II diabetes with hyperglycemia, with filler leaf cutter long insulin use Postoperative hypothyroidism Patient admitted for [...] daily before breakfast Patient to discharge to [facility] Outpt Follow Up-- PCP SUBJECTIVE/HPI: CHIEF COMPLAINT: [...] diagnosis. She has been having diarrhea in 1407-4654, smt severe Glimepiride- started in 2015 Trulicity [...] reviewed. Constituti (more content not included)... Normal [facility] Progress Note Occupational Therapy OCCUPATIONAL THERAPY [facility] & ED's Treatment Note Name/MRN: Radha Sandoval ([id number]) Date of : 1945 Age: 77 y.o. [...] to rehab service department Occupational Therapist Normal [facility] Progress Note [facility] Geriatric Medicine Inpatient Consult Service Admission Date: 02/28/2023 Assessment Principal Problem: LING (acute kidney injury) (CMS/[facility]) ([facility]) Active Problems: Declining functional status Weakness Anxiety Polypharmacy DNR (do not resuscitate) Insomnia Plan Declining functional status -Related to physical deconditioning, UTI, advanced age, diabetes type 2 -Continue PT/OT as able while inpatient -Anticipate d/c to SNF for ongoing daily PT/OT, patient agreeable to go to [facility] Fall Weakness -Multiple risk factors [...] you Subjective Chief Complaint: low back pain/dysuria/polyuria/w [facility] Geriatrics consulted for "functional decline" HPI- The [...] contact guard. Ambulated 30 ft x2. Recommending [facility] facility . Review of Systems Constitutional: Negative [...] 2 pu (more content not included)... Normal [facility] Progress Note Nutrition rescreen completed. Pt referred to RD for uncontrolled DM, and nutrition supplement per Wound Care. Normal [facility] VITAMIN D DEFICIENCY SCREENI NG (VIT D 25)on 03-02-2023 VIT D 25-OH, TOTAL 17 ng/mL Low 30-100 [facility] Comment on above: Result Comment: LISA Mejia COMMENTS: Therapy is based on measurement of Total 25-OHD with the following classification levels: Less than 20 ng/mL: Indicative of Vit D deficiency 20-30 ng/mL: Suggests Vit D insufficiency Optimal: Greater than or equal to 30 ng/mL Test performed by FireScope Competitive Immunoassay, measuring Total Vitamin D, not individual fractions. Performed By: #### L [id number], [id number], [id number] ####Supervisor Microwave: MARTIN REYES ([phone])[facility] ([facility])[address] [place] [address] Vitamin D Deficiency Screeni ng (Vit D 25)on 03-02-2023 25-hydroxyvitamin D3 [Mass/Vol] 17 ng/mL Low 30 - 100 ng/mL [facility] [id number] 03-01-2023 [id number] Degreasing Wheel Operator following case for Discharge Needs. Therapy states SNF, but Patient wants HC instead. Normal [facility] CARECOORDon 03-01-2023 [facility] Care Managment Initi al Assessment Date: 03/01/2023 Patient Name: Radha Sandoval : 1945 Patient Information Source of Information: Patient Cognition/Language: WFL - Within Functional Limits Permission given to speak with patient traffic representative/caregive r as indicated: Yes Confirmation of [...] follow as needed. Laura Jackson RN Normal [facility] CBC W Auto Differential pane l (Bld)Ordered By: Rosey Viera on 03-01-2023 Basophils (Bld) [#/Vol] 0.1 10*3/uL 0.0 - 0.2 10*3/uL [facility] Basophils/100 WBC (Bld) 0.6 % 0.0 - 2.0 % [facility] Eosinophils (Bld) [#/Vol] 0.2 10*3/uL 0.0 - 0.5 10*3/uL [facility] Eosinophils/100 WBC (Bld) 1.4 % 1.0 - 6.0 % [facility] Erythrocyte distribution width (RBC) [Ratio] 13.6 % 11.5 - 14.5 % [facility] Hematocrit (Bld) [Volume fraction] 34.9 % Low 35.0 - 47.0 % [facility] Hemoglobin (Bld) [Mass/Vol] 11.5 g/dL Low 11.7 - 16.0 g/dL [facility] Interpretation and review of laboratory results Abnormal [facility] Lymphocytes (Bld) [#/Vol] 1.7 10*3/uL 1.0 - 4.3 10*3/uL [facility] [place] Lymphocytes/100 WBC (Bld) 12.6 % Low 20.0 - 40.0 % [facility] MCH (RBC) [Entitic mass] 28.7 pg 26.0 - 34.0 pg [facility] MCHC (RBC) [Mass/Vol] 33.0 % 32.0 - 36.0 % [facility] MCV (RBC) [Entitic vol] 87.1 fL 80.0 - 98.0 fL [facility] Monocytes (Bld) [#/Vol] 1.5 10*3/uL High 0.0 - 0.8 10*3/uL [facility] Monocytes/100 WBC (Bld) 10.8 % High 2.0 - 10.0 % [facility] Neutrophils (Bld) [#/Vol] 10.3 10*3/uL High 1.8 - 7.0 10*3/uL [facility] Neutrophils/100 WBC (Bld) 74.6 % 40.0 - 80.0 % [facility] Nucleated RBC/100 WBC (Bld) [Ratio] 0.0 % [facility] Platelet mean volume (Bld) [Entitic vol] 8.5 fL 7.4 - 12.4 fL [facility] Platelets (Bld) [#/Vol] 271 10*3/uL 140 - 440 10*3/uL [facility] RBC (Bld) [#/Vol] 4.00 10*6/uL 3.8 - 5.20 10*6/uL [facility] WBC (Bld) [#/Vol] 13.8 10*3/uL High 3.6 - 10.7 10*3/uL [facility] CBC WITH AUTO DIFFERENTIALon 03-01-2023 Basophils (Bld) [#/Vol] 0.1 10*3/uL Normal 0.0-0.2 [facility] Comment on above: Performed By: #### L [id number] ####Supervisor Microwave: MARTIN REYES ([phone])[facility] ([facility])[address] [place] [address] Basophils/100 WBC (Bld) 0.6 % Normal 0.0-2.0 [facility] Comment on above: Performed By: #### L [id number] ####Supervisor Microwave: MARTIN REYES ([phone])[facility] ([facility])[address] Eosinophils (Bld) [#/Vol] 0.2 10*3/uL Normal 0.0-0.5 [facility] Comment on above: Performed By: #### L [id number] ####Supervisor Microwave: MARTIN REYES ([phone])[facility] ([facility])[address] Eosinophils/100 WBC (Bld) 1.4 % Normal 1.0-6.0 [facility] Comment on above: Performed By: #### L [id number] ####Supervisor Microwave: MARTIN ERIC ([phone])[facility] ([facility])[address] Erythrocyte distribution width (RBC) [Ratio] 13.6 % Normal 11.5-14.5 [facility] Comment on above: Performed By: #### L [id number] ####Supervisor Microwave: MARTIN REYES ([phone])[facility] [place] ([facility])[address] ERYTHROCYTE MEAN CORPUSCULAR HEMOGLOBIN CONCENTRATION (G/DL) BY AUTOMATED 33.0 % Normal 32.0-36.0 [facility] Comment on above: Performed By: #### L [id number] ####Supervisor Microwave: MARTIN AMBROSEJOSE R ([phone])[facility] [place] ([facility])[address] Hematocrit (Bld) [Volume fraction] 34.9 % Low 35.0-47.0 [facility] Comment on above: Performed By: #### L [id number] ####Supervisor Microwave: MARTIN HUAWILFREDO ([phone])[facility] [place] ([facility])[address] Hemoglobin (Bld) [Mass/Vol] 11.5 g/dL Low 11.7-16.0 [facility] Comment on above: Performed By: #### L [id number] ####Supervisor Microwave: MARTINDWAINE REYES ([phone])[facility] [place] ([facility])[address] Lymphocytes (Bld) [#/Vol] 1.7 10*3/uL Normal 1.0-4.3 [facility] Comment on above: Performed By: #### L [id number] ####Supervisor Microwave: MARTIN REYES ([phone])[facility] [place] ([facility])[address] Lymphocytes/100 WBC (Bld) 12.6 % Low 20.0-40.0 [facility] Comment on above: Performed By: #### L [id number] ####Supervisor Microwave: MARTIN REYES ([phone])[facility] [place] ([facility])[address] [place] [address] MCH (RBC) [Entitic mass] 28.7 pg Normal 26.0-34.0 [facility] Comment on above: Performed By: #### L [id number] ####Supervisor Microwave: MARTIN REYES ([phone])[facility] ([facility])[address] MCV (RBC) [Entitic vol] 87.1 fL Normal 80.0-98.0 [facility] Comment on above: Performed By: #### L [id number] ####Supervisor Microwave: MARTIN AMBROSEJOSE R ([phone])[facility] [place] ([facility])[address] Monocytes (Bld) [#/Vol] 1.5 10*3/uL High 0.0-0.8 [facility] Comment on above: Performed By: #### L [id number] ####Supervisor Microwave: MARTIN HUAWILFREDO ([phone])[facility] [place] ([facility])[address] Monocytes/100 WBC (Bld) 10.8 % High 2.0-10.0 [facility] Comment on above: Performed By: #### L [id number] ####Supervisor Microwave: MARTIN AMBROSEJOSE R ([phone])[facility] ([facility])[address] [place] [address] [place] Neutrophils (Bld) [#/Vol] 10.3 10*3/uL High 1.8-7.0 [facility] Comment on above: Performed By: #### L [id number] ####Supervisor Microwave: MARTIN AMBROSEJSOE R ([phone])[facility] [place] ([facility])[address] Neutrophils/100 WBC (Bld) 74.6 % Normal 40.0-80.0 [facility] Comment on above: Performed By: #### L [id number] ####Supervisor Microwave: MARTIN AMBROSEJOSE R ([phone])[facility] [place] ([facility])[address] NRBC (PER 100 WBCS) BY AUTOMATED COUNT 0.0 /100 WBCs Normal 0.0-2.0 [facility] Comment on above: Performed By: #### L [id number] ####Supervisor Microwave: MARTIN REYES ([phone])[facility] [place] ([facility])[address] Platelet mean volume (Bld) [Entitic vol] 8.5 fL Normal 7.4-12.4 [facility] Comment on above: Performed By: #### L [id number] ####Supervisor Microwave: MARTIN REYES ([phone])[facility] [place] ([facility])[address] [place] [address] [place] PLATELETS (10*3/UL) IN BLOOD AUTOMATED COUNT 271 10*3/uL Normal 140-440 [facility] Comment on above: Performed By: #### L [id number] ####Supervisor Microwave: MARTIN AMBROSEJOSE R ([id number])[facility] [place] ([facility])[address] [place] [address] [place] RBC (Bld) [#/Vol] 4.00 10*6/uL Normal 3.8-5.20 [facility] Comment on above: Performed By: #### L [id number] ####Supervisor Microwave: MARTIN REYES ([id number])[facility] ([facility])[address] WBC (Bld) [#/Vol] 13.8 10*3/uL High 3.6-10.7 [facility] Comment on above: Performed By: #### L [id number] ####Supervisor Microwave: MARTIN REYES ([phone])[facility] [place] ([facility])[address] COMPREHENSIVE METABOLIC PANE Real 03-01-2023 Albumin [Mass/Vol] 3.1 g/dL Low 3.5-5.0 [facility] Comment on above: Performed By: #### L [id number] ####Supervisor Microwave: MARTIN REYES ([phone])[facility] ([facility])[address] ALP [Catalytic activity/Vol] 102 U/L Normal 38-126 [facility] Comment on above: Performed By: #### L [id number] ####Supervisor Microwave: MARTIN REYES ([phone])[facility] ([facility])[address] ALT [Catalytic activity/Vol] 16 U/L Normal 0-34 [facility] Comment on above: Performed By: #### L [id number] ####Supervisor Microwave: MARTIN REYES ([id number])[facility] [place] ([facility])[address] Anion gap [Moles/Vol] 9 mmol/L Normal 3-13 [facility] Comment on above: Performed By: #### L [id number] ####Supervisor Microwave: MARTIN REYES ([phone])[facility] [place] ([facility])[address] AST [Catalytic activity/Vol] 24 U/L Normal 15-46 [facility] Comment on above: Performed By: #### L [id number] ####Supervisor Microwave: MARTIN REYES ([phone])[facility] [place] ([facility])[address] Bilirubin [Mass/Vol] 0.4 mg/dL Normal 0.2-1.3 [facility] Comment on above: Performed By: #### L [id number] ####Supervisor Microwave: MARTIN REYES ([phone])[facility] [place] ([facility])[address] Calcium [Mass/Vol] 8.3 mg/dL Low 8.4-10.4 [facility] Comment on above: Performed By: #### L [id number] ####Supervisor Microwave: MARTIN REYES ([phone])[facility] [place] ([facility])[address] Chloride [Moles/Vol] 102 mmol/L Normal 98-107 [facility] Comment on above: Performed By: #### L [id number] ####Supervisor Microwave: MARTIN REYES ([phone])[facility] [place] ([facility])[address] CO2 [Moles/Vol] 26 mmol/L Normal 22-30 [facility] Comment on above: Performed By: #### L [id number] ####Supervisor Microwave: MARTIN REYES ([phone])[facility] [place] ([facility])[address] Creatinine [Mass/Vol] 0.96 mg/dL Normal 0.52-1.04 [facility] Comment on above: Performed By: #### L [id number] ####Supervisor Microwave: MARTIN REYES ([id number])[facility] [place] ([facility])[address] GLOMERULAR FILTRATION RATE ML/MIN/1.73 SQ M.PREDICTED 60.3 mL/min/1.73m*2 Normal >60.0 [facility] Comment on above: Result Comment: Calc ulation based on the Chronic Kidney Disease Epidemiology Collaboration (CKD-EPI) equation refit without adjustment for race Performed By: #### L [id number] ####Supervisor Microwave: MARTIN REYES ([phone])[facility] ([facility])[address] Glucose [Mass/Vol] 123 mg/dL High 70-100 [facility] Comment on above: Performed By: #### L [id number] ####Supervisor Microwave: MARTIN REYES ([phone])[facility] [place] ([facility])[address] Potassium [Moles/Vol] 4.3 mmol/L Normal 3.5-5.1 [facility] Comment on above: Performed By: #### L [id number] ####Supervisor Microwave: MARTIN REYES ([phone])[facility] ([facility] Protein [Mass/Vol] 6.0 g/dL Low 6.3-8.2 [facility] Comment on above: Performed By: #### L [id number] ####Supervisor Microwave: MARTIN REYES ([phone])[facility] Sodium [Moles/Vol] 137 mmol/L Normal 135-145 [facility] Comment on above: Performed By: #### L [id number] ####Supervisor Microwave: MARTIN REYES ([phone])[facility] (HLAB)[address] Urea nitrogen [Mass/Vol] 17 mg/dL Normal 7-17 [facility] Comment on above: Performed By: #### L [id number] ####Supervisor Microwave: MARTIN REYES ([phone])[facility] (HLAB)[address] Comprehensive metabolic 1998 panelon 03-01-2023 Albumin [Mass/Vol] 3.1 g/dL Low 3.5 - 5.0 g/dL [facility] ALP [Catalytic activity/Vol] 102 U/L 38 - 126 U/L [facility] ALT [Catalytic activity/Vol] 16 U/L 0 - 34 U/L [facility] Anion gap [Moles/Vol] 9 mmol/L 3 - 13 mmol/L [facility] AST [Catalytic activity/Vol] 24 U/L 15 - 46 U/L [facility] Bilirubin [Mass/Vol] 0.4 mg/dL 0.2 - 1 .3 mg/dL [facility] Calcium [Mass/Vol] 8.3 mg/dL Low 8.4 - 10. 4 mg/dL [facility] Chloride [Moles/Vol] 102 mmol/L 98 - 10 7 mmol/L [facility] CO2 [Moles/Vol] 26 mmol/L 22 - 30 mmol/L [facility] Creatinine [Mass/Vol] 0.96 mg/dL 0.52 - 1.04 mg/dL [facility] GFR/1.73 sq M.predicted MDRD (S/P/Bld) [Vol rate/Area] 60.3 mL/min/{1.73_m2} - PINF [facility] Comment on above: Calculation based on the Chronic Kidney Disease Epidemiology Collaboration (CKD-EPI) equation refit without adjustment for race Glucose [Mass/Vol] 123 mg/dL High 70 - 100 mg/dL [facility] Interpretation and review of laboratory results Abnormal [facility] Potassium [Moles/Vol] 4.3 mmol/L 3.5 - 5.1 mmol/L [facility] Protein [Mass/Vol] 6.0 g/dL Low 6.3 - 8.2 g/dL [facility] Sodium [Moles/Vol] 137 mmol/L 135 - 145 mmol/L [facility] Urea nitrogen [Mass/Vol] 17 mg/dL 7 - 17 mg/dL [facility] Consulton 03-01-2023 Consult [facility] CONSULT Note Radha Sandoval AGE: [...] Uncontrolled type 2 diabetes mellitus with hyperglycemia ([facility]) 01/16/2020 Morbidly obese ([facility]) 01/16/2020 Vitamin D deficiency 01/16/2020 Moderate episode of recurrent major depressive disorder ([facility]) 06/03/2019 OAB (overactive bladder) 05/06/2021 Localized edema 10/01/2020 Insomnia 04/06/2015 Dyspnea on exertion 09/09/2021 Muscle spasms of both lower extremities 09/09/2021 Chronic renal insufficiency, stage III (moderate) ([facility]) 06/03/2019 Restless legs syndrome (RLS) 01/14/2015 [...] 12/07/2022 Performed by Avery Marshall DO at [facility] ENDOSCOPY EYE SURGERY Bilateral early 90' [...] tablet 0 ergocalciferol (Vitamin D-2) 1.25 MG (22715 UT) capsule Take 1 capsule (1.25 mg) by mouth 1 (one) time per week. 90 capsule 1 Glucose Blood (Blood Glucose Test) strip 4 times daily. hydrOX (more content not included)... Normal [facility] Consult [facility] Geriatric Medicine Inpatient Consult Service Admission Date: 02/28/2023 Admission Status: INPATIENT Chief Complaint: "I couldn't get around and they directed me to the hospital because I was peeing constantly from that UTI." Reason for Appointment Geriatrics consulted for "functional decline" Assessment/Plan Principal Problem: LING (acute kidney injury) ([facility]/HCC) ([facility]) Active Problems: Declining functional status Weakness [...] necessary I recommended follow up at our [facility] at [phone]. Call in 2 weeks for memory (re)testing once acute issue(s) resolve - order placed in the medical center for follow-up Other I deferred [...] well overnight. Awo (more content not included)... [facility] Consult This patient is not a new diabetic or new to insulin therapy and therefore does not meet our current criteria for the inpatient diabetes education service. The clinical bedside RN should provide any necessary diabetes education using the Diabetes Survival Skills Booklet available on the unit. Please consider a dietary consult if appropriate and if not already ordered. Contact [facility] to [facility] pharmacist for assistance if a new glucometer or any associated supplies are needed. Thank you. Elder MUÑOZ,BSN,[facility] Consult Department of Sourcing Coordinator al Medicine Division of Endocrinology, Diabetes, & Metabolism Endocrinology Note Patient Name: Radha Sandoval : 1945 AGE: 77 y.o. Room/Bed: [facility]/[address] Admission Date: 02/28/2023 Visit Date: 03/01/2023 Reason for Endocrine Consult: DM-Uncontrolled Provider/Team Requesting Consult: Dr. Finch PCP: Shiv Lopez MD Outpt Logging Operations Inspector: No ASSESSMENT: Type II diabetes with hyperglycemia, with filler leaf cutter long insulin use Postoperative hypothyroidism PLAN: Humalog 6 [...] diagnosis. She has been having diarrhea in [id number], smt severe Glimepiride- started in 2015 Trulicity started in November 2017 julian Becker Thyroid disorder: Postoperative Hypothyroidism Onset of thyroid [...] Heart s (more content not included)... Normal [facility] HEMOGLOBIN A1Con 03-01-2023 Glucose [Mass/Vol] 315 mg/dL Normal [facility] Comment on above: Performed By: #### L [id number] ####Supervisor Microwave: MARTIN REYES ([phone])[facility] ([facility])[address] [place] [address] HbA1c (Bld) [Mass fraction] 12.6 % High <5.7 [facility] Comment on above: Result Comment: Norm al less than 5.7% Prediabetes 5.7% to 6.4% Diabetes 6.5% or higher --HgbA1C levels may not be accurate in patients who have renal disease, received recent blood transfusions, are anemic, or who have dyshemoglobinemia. Performed By: #### L AB90 ####Supervisor Microwave: MARTIN REYES ([phone])[facility] ([facility])[address] [place] [address] HbA1c (Bld) [Mass fraction]o n 03-01-2023 Average glucose Estimated from glycated hemoglobin (Bld) [Mass/Vol] 315 mg/dL [facility] Interpretation and review of laboratory results Abnormal [facility] Hemoglobin A1con 03-01-2023 HbA1c (Bld) [Mass fraction] 12.6 % High NINF - 5.7 % [facility] Comment on above: Normal less than 5.7 % Prediabetes 5.7% to 6.4% Diabetes 6.5% or higher --HgbA1C levels may not be accurate in patients who have renal disease, received recent blood transfusions, are anemic, or who have dyshemoglobinemia. POCT glucose meteron 023 Glucose [Mass/Vol] 194 mg/dL High 70 - 100 mg/dL [facility] Interpretation and review of laboratory results Abnormal [facility] Performed by: [facility], [address] [place] [address] CLIA ID: [id number] [facility] Glucose [Mass/Vol] 95 mg/dL 70 - 100 mg/dL [facility] Interpretation and review of laboratory results Normal [facility] Performed by: [facility], [address] [place] [id number] CLIA ID: [id number] [facility] Glucose [Mass/Vol] 153 mg/dL High 70 - 100 mg/dL [facility] Interpretation and review of laboratory results Abnormal [facility] Performed by: [facility], [address] [place] [address] CLIA ID: [id number] [facility] [place] Glucose [Mass/Vol] 172 mg/dL High 70 - 100 mg/dL [facility] Interpretation and review of laboratory results Abnormal [facility] Performed by: [facility], [address] [place] [address] CLIA ID: [id number] [facility] PROCALCITONIN TESTon 023 PROCALCITONIN 0.05 ng/mL Normal 0.00-0.09 [facility] Comment on above: Result Comment: LISA Mejia COMMENTS: PCT <0.50 = Low risk of severe sepsis and/or septic shock. PCT >2.00 = High risk of severe sepsis and/or septic shock. Performed By: #### L [id number] ####Supervisor Microwave: ASHLEY LLANOS ([phone])[facility] ([id number] Procalcitonin Teston 023 Procalcitonin [Mass/Vol] 0.05 ng/mL 0.00 - 0.09 ng/mL [facility] [place] Procalcitonin [Mass/Vol]on 0 03-01-2023 Interpretation and review of laboratory results Normal [facility] PCT <0.50 = Low risk of severe sepsis and/or septic shock. PCT >2.00 = High risk of severe sepsis and/or septic shock. [facility] Progress Noteon 03-01-2023 Progress Note Physical Therapy Facility/Department: [address] Physical Therapy Initial Evaluation NAME: Radha Sandoval : 1945 Date of Service: 03/01/2023 Discharge Recommendations: [facility] Facility, Continue to assess pending progress PT [...] diagnosis was LING (acute kidney injury) (CMS/HCC) ([facility]). Diagnoses of Pyelonephritis, Polypharmacy, Insomnia, unspecified type, and Pressure ulcer of right buttock, stage [address] ([facility]) were also pertinent to this visit. has a past medical history of Acquired lymphedema, Allergic, Anxiety, Arthritis, Asthma, Candidiasis of vulva and vagina, CKD (chronic kidney disease), Depression, Dietary counseling and surveillance, Hyperlipidemia, Hyperparathyroidism ([facility]), Hypertension, Hypothyroidism, Malaise and fatigue, Morbid obesity ([facility]), Muscle weakness, Nevus, non-neoplastic, Pain in limb, Pure hypercholesterolemia, RLS (restless legs syndrome), Type 2 diabetes mellitus ([facility]), and Varicella. 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 Normal [facility] Progress Note Occupational Therapy OCCUPATIONAL THERAPY [facility] & ED's Initial Evaluation Name/MRN: Radha Sandoval ([id number]) Evaluation Date: 03/01/2023 Date of : 1945 [...] 12/07/2022 Performed by Avery Marshall DO at [facility] ENDOSCOPY EYE SURGERY Bilateral early 90's LUNG REMOVAL, PARTIAL Left ROTATOR CUFF REPAIR Left TONSILLECTOMY Admission Diagnosis: Patient Active Problem List Diagnosis Date Noted LING (acute kidney injury) ([facility]/HCC) ([facility]) 02/28/2023 Acute cystitis with hematuria 02/27/2023 [...] Uncontrolled type 2 diabetes mellitus with hyperglycemia ([facility]) 01/16/2020 Morbidly obese ([facility]) 01/16/2020 Vitamin D deficiency 01/16/2020 Moderate episode of recurrent major depressive disorder ([facility]) 06/03/2019 Chronic renal insufficiency, stage III (moderate) ([facility]) 06/03/2019 Hyperlipidemia with target LDL less [...] Responsibilities: Independent Receives Help From: None Active Jewelry Store Manager: Yes Prior Level of Function ADL [...] Upper Ext (more content not included)... Normal [facility] 36on 02-28-2023 36 Noted. Patient sana mendenhall notified. See previous TE if needed. Normal [facility] 36 Called and spoke wit h [...] be going to [facility]. Normal [facility] 36 S: Christine from [facility] [phone] spoke with [facility] nurse regarding critical lab results B: Glucose A: Blood was drawn yesterday. Glucose was 524, resulting this morning. Verified with repeat analysis. The lab work was ordered by Katia Granados CNP. R: Since office is open, called back line and spoke with Katia Schulz's nurse. Result given. No further instructions to the [facility] nurse. Reason for Disposition Lab or radiology calling with CRITICAL test results Protocols used: [facility]CP Call - [facility] Next Site of Care Admission Date: 02/28/2023 11:30 AM Patient Name: RADHA SANDOVAL Location: [address] MED SURG/[facility] [id number] A Date of : 1945 - Placement Information - Referral Type:Fci/SNF - New Referral ID:[facility]-[id number] Provider Name:[facility] Trans[facility] Address 1:[address] Address 2: City:[place] Selection Factors:Patient/Family Choice State:[place] Normal [facility] CBC W Auto Differential pane l (Bld)Ordered By: Clayton Lozano on 02-28-2023 Basophils (Bld) [#/Vol] 0.1 10*3/uL 0.0 - 0.2 10*3/uL [facility] Basophils/100 WBC (Bld) 0.5 % 0.0 - 2.0 % [facility] Eosinophils (Bld) [#/Vol] 0.1 10*3/uL 0.0 - 0.5 10*3/uL [facility] Eosinophils/100 WBC (Bld) 0.9 % Low 1.0 - 6.0 % [facility] Erythrocyte distribution width (RBC) [Ratio] 13.8 % 11.5 - 14.5 % [facility] Hematocrit (Bld) [Volume fraction] 36.0 % 35.0 - 47.0 % [facility] Hemoglobin (Bld) [Mass/Vol] 11.5 g/dL Low 11.7 - 16.0 g/dL [facility] Interpretation and review of laboratory results Abnormal [facility] Lymphocytes (Bld) [#/Vol] 0.8 10*3/uL Low 1.0 - 4.3 10*3/uL [facility] Lymphocytes/100 WBC (Bld) 6.4 % Low 20.0 - 40.0 % [facility] MCH (RBC) [Entitic mass] 28.0 pg 26.0 - 34.0 pg [facility] MCHC (RBC) [Mass/Vol] 32.0 % 32.0 - 36.0 % [facility] MCV (RBC) [Entitic vol] 87.5 fL 80.0 - 98.0 fL [facility] Monocytes (Bld) [#/Vol] 1.1 10*3/uL High 0.0 - 0.8 10*3/uL [facility] Monocytes/100 WBC (Bld) 9.0 % 2.0 - 10.0 % [facility] Neutrophils (Bld) [#/Vol] 10.2 10*3/uL High 1.8 - 7.0 10*3/uL [facility] Neutrophils/100 WBC (Bld) 83.2 % High 40.0 - 80.0 % [facility] Nucleated RBC/100 WBC (Bld) [Ratio] 0.0 % [facility] Platelet mean volume (Bld) [Entitic vol] 8.6 fL 7.4 - 12.4 fL [facility] Platelets (Bld) [#/Vol] 278 10*3/uL 140 - 440 10*3/uL [facility] RBC (Bld) [#/Vol] 4.11 10*6/uL 3.8 - 5.20 10*6/uL [facility] WBC (Bld) [#/Vol] 12.3 10*3/uL High 3.6 - 10.7 10*3/uL [facility] CBC WITH AUTO DIFFERENTIALon 02-28-2023 Basophils (Bld) [#/Vol] 0.1 10*3/uL Normal 0.0-0.2 [facility] Comment on above: Performed By: #### L [id number] ####Supervisor Microwave: MARTIN REYES ([phone])[facility] ([facility])[address] [place] [address] Basophils/100 WBC (Bld) 0.5 % Normal 0.0-2.0 [facility] Comment on above: Performed By: #### L [id number] ####Supervisor Microwave: MARTIN REYES ([phone])[facility] ([facility])[address] [place] [address] [place] Eosinophils (Bld) [#/Vol] 0.1 10*3/uL Normal 0.0-0.5 [facility] Comment on above: Performed By: #### L [id number] ####Supervisor Microwave: MARTIN REYES ([phone])[facility] ([facility])[address] Eosinophils/100 WBC (Bld) 0.9 % Low 1.0-6.0 [facility] Comment on above: Performed By: #### L [id number] ####Supervisor Microwave: MARTIN REYES ([phone])[facility] (SB[facility])[address] Erythrocyte distribution width (RBC) [Ratio] 13.8 % Normal 11.5-14.5 [facility] Comment on above: Performed By: #### L [id number] ####Supervisor Microwave: MARTIN REYES ([phone])[facility] ([facility])[address] ERYTHROCYTE MEAN CORPUSCULAR HEMOGLOBIN CONCENTRATION (G/DL) BY AUTOMATED 32.0 % Normal 32.0-36.0 [facility] Comment on above: Performed By: #### L [id number] ####Supervisor Microwave: MARTIN REYES ([phone])[facility] ([facility])[address] Hematocrit (Bld) [Volume fraction] 36.0 % Normal 35.0-47.0 [facility] Comment on above: Performed By: #### L [id number] ####Supervisor Microwave: MARTINDWAINE REYES ([phone])[facility] ([facility])[address] Hemoglobin (Bld) [Mass/Vol] 11.5 g/dL Low 11.7-16.0 [facility] Comment on above: Performed By: #### L [id number] ####Supervisor Microwave: MARTIN ERIC ([phone])[facility] ([facility])[address] Lymphocytes (Bld) [#/Vol] 0.8 10*3/uL Low 1.0-4.3 [facility] Comment on above: Performed By: #### L [id number] ####Supervisor Microwave: MARTIN ERIC ([phone])[facility] ([facility])[address] Lymphocytes/100 WBC (Bld) 6.4 % Low 20.0-40.0 [facility] Comment on above: Performed By: #### L [id number] ####Supervisor Microwave: MARTINDWAINE REYES ([phone])[facility] ([facility])[address] MCH (RBC) [Entitic mass] 28.0 pg Normal 26.0-34.0 [facility] Comment on above: Performed By: #### L [id number] ####Supervisor Microwave: MARTIN ERIC ([phone])[facility] ([facility])[address] MCV (RBC) [Entitic vol] 87.5 fL Normal 80.0-98.0 [facility] Comment on above: Performed By: #### L [id number] ####Supervisor Microwave: MARTIN REYES ([phone])[facility] ([facility])[address] Monocytes (Bld) [#/Vol] 1.1 10*3/uL High 0.0-0.8 [facility] Comment on above: Performed By: #### L [id number] ####Supervisor Microwave: MARTINDWAINE REYES ([phone])[facility] ([facility])[address] Monocytes/100 WBC (Bld) 9.0 % Normal 2.0-10.0 [facility] Comment on above: Performed By: #### L [id number] ####Supervisor Microwave: MARTIN ERIC ([phone])[facility] ([facility])[address] [place] [address] [place] Neutrophils (Bld) [#/Vol] 10.2 10*3/uL High 1.8-7.0 [facility] Comment on above: Performed By: #### L [id number] ####Supervisor Microwave: MARTIN ERIC ([phone])[facility] ([facility])[address] Neutrophils/100 WBC (Bld) 83.2 % High 40.0-80.0 [facility] Comment on above: Performed By: #### L [id number] ####Supervisor Microwave: MARTIN REYES ([phone])[facility] ([facility])[address] NRBC (PER 100 WBCS) BY AUTOMATED COUNT 0.0 /100 WBCs Normal 0.0-2.0 [facility] Comment on above: Performed By: #### L [id number] ####Supervisor Microwave: MARTIN REYES ([phone])[facility] ([facility])[address] Platelet mean volume (Bld) [Entitic vol] 8.6 fL Normal 7.4-12.4 [facility] Comment on above: Performed By: #### L [id number] ####Supervisor Microwave: MARTIN REYES ([phone])[facility] ([facility])[address] PLATELETS (10*3/UL) IN BLOOD AUTOMATED COUNT 278 10*3/uL Normal 140-440 [facility] Comment on above: Performed By: #### L [id number] ####Supervisor Microwave: MARTIN REYES ([phone])[facility] ([facility])[address] RBC (Bld) [#/Vol] 4.11 10*6/uL Normal 3.8-5.20 [facility] Comment on above: Performed By: #### L [id number] ####Supervisor Microwave: MARTIN REYES ([phone])[facility] ([facility])[address] [place] [address] [place] WBC (Bld) [#/Vol] 12.3 10*3/uL High 3.6-10.7 [facility] Comment on above: Performed By: #### L [id number] ####Supervisor Microwave: MARTIN REYES ([phone])[facility] ([facility])[address] COMPLETE URINALYSISon 2022 BACTERIA (#/HPF) IN URINE Moderate Abnormal Negative [facility] Comment on above: Performed By: #### L [id number] ####Supervisor Microwave: MARTIN REYES ([phone])[facility] ([facility])[address] BILIRUBIN, TOTAL PRESENCE IN URINE Negative Normal Negative [facility] Comment on above: Performed By: #### L [id number] ####Supervisor Microwave: MARTIN REYES ([phone])[facility] ([facility])[address] Clarity (U) Turbid Abnormal Clear [facility] Comment on above: Performed By: #### L [id number] ####Supervisor Microwave: MARTIN REYES ([phone])[facility] ([facility])[address] [place] [address] Color (U) Light Yellow Normal Lt. Yellow [facility] Comment on above: Performed By: #### L [id number] ####Supervisor Microwave: MARTIN REYES ([phone])[facility] ([facility])[address] GLUCOSE (MG/DL) IN URINE >1,000 Abnormal Normal (<70) [facility] Comment on above: Performed By: #### L [id number] ####Supervisor Microwave: MARTIN REYES ([phone])[facility] ([facility])[address] [place] [address] [place] GRANULAR CASTS (#/LPF) IN URINE 0-2 Abnormal Negative [facility] Comment on above: Performed By: #### L [id number] ####Supervisor Microwave: MARTIN REYES ([phone])[facility] ([facility])[address] HEMOGLOBIN PRESENCE IN URINE Negative Normal Negative [facility] Comment on above: Performed By: #### L [id number] ####Supervisor Microwave: MARTIN REYES ([phone])[facility] ([facility])[address] HYALINE CASTS (#/LPF) IN URINE SEDIMENT BY MICROSCOPY 3-5 Abnormal Negative [facility] Comment on above: Performed By: #### L [id number] ####Supervisor Microwave: MARTIN HUANateJOSE R ([phone])[facility] ([facility])[address] Ketones Ql (U) Negative Normal Negative [facility] Comment on above: Performed By: #### L [id number] ####Supervisor Microwave: MARTIN REYES ([phone])[facility] ([facility])[address] LEUKOCYTE ESTERASE PRESENCE IN URINE BY TEST STRIP 250 Sandeep/uL Abnormal Negative [facility] Comment on above: Performed By: #### L [id number] ####Supervisor Microwave: MARTIN REYES ([phone])[facility] ([facility])[address] [place] [address] [place] MUCUS (#/LPF) IN URINE SEDIMENT Few Normal Negative [facility] Comment on above: Performed By: #### L [id number] ####Supervisor Microwave: MARTIN REYES ([phone])[facility] NITRITE PRESENCE IN URINE Positive Abnormal Negative [facility] Comment on above: Performed By: #### L [id number] ####Supervisor Microwave: MARTIN REYES ([phone])[facility] ([facility])[address] pH (U) 5.0 [pH] Normal 5.0-8.0 [facility] Comment on above: Performed By: #### L [id number] ####Supervisor Microwave: MARTIN REYES ([phone])[facility] ([facility])[address] Protein (U) [Mass/Vol] 20 mg/dL Abnormal Negative [facility] Comment on above: Performed By: #### L [id number] ####Supervisor Microwave: MARTIN REYES ([phone])[facility] ([facility])[address] RBC (#/HPF) IN URINE SEDIMENT 0-2 Normal 0-2 [facility] Comment on above: Performed By: #### L [id number] ####Supervisor Microwave: MARTIN REYES ([phone])[facility] ([facility])[address] Specific gravity (U) [Rel density] 1.020 Normal 1.005-1.030 [facility] Comment on above: Performed By: #### L [id number] ####Supervisor Microwave: MARTIN REYES ([phone])[facility] ([facility])[address] [place] [address] SQUAMOUS EPITHELIAL CELLS (#/HPF) IN URINE SEDIMENT 3-5 Normal 3-5 [facility] Comment on above: Performed By: #### L [id number] ####Supervisor Microwave: MARTIN AMBROSEJOSE R ([phone])[facility] ([facility])[address] UROBILINOGEN (MG/DL) IN URINE Normal Normal Normal (0-1) [facility] Comment on above: Performed By: #### L [id number] ####Supervisor Microwave: MARTIN REYES ([phone])[facility] ([facility])[address] WBC (LEUKOCYTE) (#/HPF) IN URINE SEDIMENT 11-25 Abnormal 0-5 [facility] Comment on above: Performed By: #### L [id number] ####Supervisor Microwave: MARTIN REYES ([phone])[facility] ([facility])[address] WBC (LEUKOCYTE) CLUMPS (#/HPF) IN URINE SEDIMENT Occasional Abnormal Negative [facility] Comment on above: Performed By: #### L [id number] ####Supervisor Microwave: MARTIN REYES ([phone])[facility] ([facility])[address] YEAST (#/HPF) IN URINE Few Abnormal Negative [facility] Comment on above: Performed By: #### L [id number] ####Supervisor Microwave: MARTIN REYES ([phone])[facility] ([facility])[address] COMPREHENSIVE METABOLIC PANE Real 02-28-2023 Albumin [Mass/Vol] 3.7 g/dL Normal 3.5-5.0 [facility] Comment on above: Performed By: #### L AB17 ####Supervisor Microwave: MARTIN REYES ([phone])[facility] ([facility])[address] ALP [Catalytic activity/Vol] 119 U/L Normal 38-126 [facility] Comment on above: Performed By: #### L AB17 ####Supervisor Microwave: MARTIN REYES ([phone])[facility] ([facility])[address] ALT [Catalytic activity/Vol] 18 U/L Normal 0-34 [facility] Comment on above: Performed By: #### L AB17 ####Supervisor Microwave: MARTIN REYES ([phone])[facility] ([facility])[address] Anion gap [Moles/Vol] 8 mmol/L Normal 3-13 [facility] Comment on above: Performed By: #### L AB17 ####Supervisor Microwave: MARTIN REYES ([phone])[facility] ([facility])[address] [place] [address] [place] AST [Catalytic activity/Vol] 24 U/L Normal 15-46 [facility] Comment on above: Performed By: #### L AB17 ####Supervisor Microwave: MARTIN REYES ([phone])[facility] ([facility])[address] Bilirubin [Mass/Vol] 0.5 mg/dL Normal 0.2-1.3 [facility] Comment on above: Performed By: #### L AB17 ####Supervisor Microwave: MARTIN REYES ([phone])[facility] ([facility])[address] Calcium [Mass/Vol] 8.4 mg/dL Normal 8.4-10.4 [facility] Comment on above: Performed By: #### L AB17 ####Supervisor Microwave: MARTIN REYES ([phone])[facility] ([facility])[address] Chloride [Moles/Vol] 96 mmol/L Low 98-107 [facility] Comment on above: Performed By: #### L AB17 ####Supervisor Microwave: MARTIN REYES ([phone])[facility] ([facility])[address] CO2 [Moles/Vol] 26 mmol/L Normal 22-30 [facility] Comment on above: Performed By: #### L AB17 ####Supervisor Microwave: MARTIN REYES ([phone])[facility] ([facility])[address] Creatinine [Mass/Vol] 1.22 mg/dL High 0.52-1.04 [facility] Comment on above: Performed By: #### L AB17 ####Supervisor Microwave: MARTIN REYES ([phone])[facility] ([facility])[address] [place] [address] [place] GLOMERULAR FILTRATION RATE ML/MIN/1.73 SQ M.PREDICTED 45.2 mL/min/1.73m*2 Low >60.0 [facility] Comment on above: Result Comment: Calc ulation based on the Chronic Kidney Disease Epidemiology Collaboration (CKD-EPI) equation refit without adjustment for race Performed By: #### L AB17 ####Supervisor Microwave: MARTIN REYES ([phone])[facility] ([facility])[address] [place] [address] [place] Glucose [Mass/Vol] 483 mg/dL Critically high 70-100 [facility] Comment on above: Performed By: #### L AB17 ####Supervisor Microwave: MARTIN REYES ([phone])[facility] ([facility])[address] Potassium [Moles/Vol] 4.0 mmol/L Normal 3.5-5.1 [facility] Comment on above: Performed By: #### L AB17 ####Supervisor Microwave: MARTIN REYES ([phone])[facility] ([facility])[address] Protein [Mass/Vol] 6.6 g/dL Normal 6.3-8.2 [facility] Comment on above: Performed By: #### L AB17 ####Supervisor Microwave: MARTIN REYES ([phone])[facility] ([facility])[address] Sodium [Moles/Vol] 130 mmol/L Low 135-145 [facility] Comment on above: Performed By: #### L AB17 ####Supervisor Microwave: MARTIN REYES ([phone])[facility] ([facility])[address] Urea nitrogen [Mass/Vol] 20 mg/dL High 7-17 [facility] Comment on above: Performed By: #### L AB17 ####Supervisor Microwave: MARTIN REYES ([phone])[facility] ([facility])[address] ABDOMEN PELVIS WO IV CONT Karine 02-28-2023 CT ABDOMEN PELVIS WO IV CONTRAST [...] back pain and burning with urination Normal [facility] CT Abdomen WO contraston Colonic diverticulosis without evidence of acute diverticulitis. Bilateral renal cysts, the largest cyst is on the left measuring up to 4.8 cm. Report Dictated on Electronically Signed By: Jb Ahmadi DO Electronically Signed Date/Time: 02/28/2023 1:44 PM [facility] Patient Name: RADHA SANDOVAL : 1945 [facility]#: [id number] Exam Date/Time: 02/28/2023 13:07 Procedure: CT ABDOMEN [...] the aorta and iliac arteries are noted. [facility] Jb AhmadiDO - 02/28/2023 Patient Name: RADHA SANDOVAL : 1945 [facility]#: [id number] Exam Date/Time: 02/28/2023 13:07 Procedure: CT ABDOMEN [...] Electronically Signed Date/Time: 02/28/2023 1:44 PM EDT [facility] Radiology Study observation (narrative) [facility] CT Abdomen WO contrastOrdere d By: Jb Ahmadi on 02-28-2023 [facility] Work Phone: Comprehensive metabolic 1998 panelOrdered By: Azucena Li on 02-28-2023 Albumin [Mass/Vol] 3.7 g/dL 3.5 - 5.0 g/dL [facility] ALP [Catalytic activity/Vol] 119 U/L 38 - 126 U/L [facility] ALT [Catalytic activity/Vol] 18 U/L 0 - 34 U/L [facility] Anion gap [Moles/Vol] 8 mmol/L 3 - 13 mmol/L [facility] AST [Catalytic activity/Vol] 24 U/L 15 - 46 U/L [facility] Bilirubin [Mass/Vol] 0.5 mg/dL 0.2 - 1 .3 mg/dL [facility] Calcium [Mass/Vol] 8.4 mg/dL 8.4 - 10. 4 mg/dL [facility] Chloride [Moles/Vol] 96 mmol/L Low 98 - 10 7 mmol/L [facility] CO2 [Moles/Vol] 26 mmol/L 22 - 30 mmol/L [facility] Creatinine [Mass/Vol] 1.22 mg/dL High 0.52 - 1.04 mg/dL [facility] GFR/1.73 sq M.predicted MDRD (S/P/Bld) [Vol rate/Area] 45.2 mL/min/{1.73_m2} Low - PINF [facility] Comment on above: Calculation based on the Chronic Kidney Disease Epidemiology Collaboration (CKD-EPI) equation refit without adjustment for race Glucose [Mass/Vol] 483 mg/dL Critically high 70 - 1 00 mg/dL [facility] Interpretation and review of laboratory results Abnormal [facility] Potassium [Moles/Vol] 4.0 mmol/L 3.5 - 5.1 mmol/L [facility] Protein [Mass/Vol] 6.6 g/dL 6.3 - 8.2 g/dL [facility] Sodium [Moles/Vol] 130 mmol/L Low 135 - 145 mmol/L [facility] Urea nitrogen [Mass/Vol] 20 mg/dL High 7 - 17 mg/dL [facility] ED Nursing Noteon 02-28-2023 ED Nursing Note Pt presents for admission per her PCP. Was sent to get kidneys evaluated per pt. Pt endorses lower back pain and burning and pain with urination. Was recently admitted. Normal [facility] ED Provider Noteon ED Provider Note [facility] 1E MED SURG EMERGENCY DEPARTMENT ENCOUNTER [...] 12/07/2022 Performed by Avery Marshall DO at [facility] ENDOSCOPY EYE SURGERY Bilateral early 90' [...] shoulder pain ergocalciferol (Vitamin D-2) 1.25 MG (99725 UT) capsule Take 1 capsule (1.25 mg) [...] Onset Mental illness Mother GHANSHYAM COLEY Depression Amber (more content not included)... Normal [facility] POCT glucose meteron 023 Glucose [Mass/Vol] 245 mg/dL High 70 - 100 mg/dL [facility] Interpretation and review of laboratory results Abnormal [facility] Performed by: [facility], [address] [place] [id number] CLIA ID: [id number] [facility] Glucose [Mass/Vol] 197 mg/dL High 70 - 100 mg/dL [facility] Interpretation and review of laboratory results Abnormal [facility] Performed by: [facility], [address] [facility] [address] CLIA ID: [id number] [facility] URINE CULTUREon 02-28-2023 [...] Non-susceptible NO = No Interpretation ] Normal [facility] Comment on above: Performed By: #### L [id number] ####Supervisor Microwave: ASHLEY LLANOS ([phone])[facility] ([facility] Urinalysis complete panel (U )on 02-28-2023 Bacteria LM.HPF (Urine sed) [#/Area] Moderate Abnormal Negative /HPF [facility] Bilirubin Ql (U) Negative Negative mg/dL [facility] Clarity (U) Turbid Abnormal Clear [facility] Color (U) Light Yellow Lt. Yellow [facility] Epithelial cells.squamous LM.HPF (Urine sed) [#/Area] [facility]5 [facility] (U) >1,000 Abnormal Normal (<70) mg/dL [facility] Granular casts LM.HPF (Urine sed) [#/Area] 0-2 Abnormal Negative /LPF [facility] Hemoglobin Ql (U) Negative Negative mg/dL [facility] Hyaline casts Auto (Urine sed) [#/Area] 3-5 Abnormal Negative /LPF [facility] Interpretation and review of laboratory results Abnormal [facility] Ketones (U) [Mass/Vol] Negative Negat katherine mg/dL [facility] Leukocyte clumps LM.HPF (Urine sed) [#/Area] Occasional Abnormal Negative /HPF [facility] Leukocyte esterase Test strip Ql (U) 250 Abnormal Negative Sandeep/uL [facility] Mucus LM.HPF (Urine sed) [#/Area] Few Negative /LPF [facility] Nitrite Ql (U) Positive Abnormal Negative [facility] pH (U) 5.0 [pH] 5.0 - 8.0 pH [facility] Protein (U) [Mass/Vol] 20 mg/dL Abnormal Negative [facility] RBC LM.HPF (Urine sed) [#/Area] 0-2 [facility] Specific gravity (U) [Rel density] 1.020 1.005 - 1.030 [facility] Urobilinogen (U) [Mass/Vol] Normal Normal (0-1) mg/dL [facility] WBC LM.HPF (Urine sed) [#/Area] 11-25 Abnormal [facility] Yeast.budding LM.HPF (Urine sed) [#/Area] Few Abnormal Negative /HPF [facility] 36on 02-27-2023 36 Rx sent Normal [facility] Glucose (Bld) [Mass/Vol]on 0 02-27-2023 Glucose Blood, POC 494 mg/dL [facility] Interpretation and review of laboratory results Abnormal [facility] Office Visiton 02-27-2023 Follow-up visit [id number] Radha Sandoval 1945 F Date Provider Department Center 02/27/2023 [id number] DIA [facility] Family History Problem Relation Age of Onset Mental illness Mother Depression Mother Heart disease Father High Blood Pressure Father Asthma Father Hypertension Father Diabetes Brother Family Status - Relation Status Age at Mother Father Brother Level of Service:28402 NE OFFICE/OUTPATIENT ESTABLISHED MOD MDM 30-39 MIN Reason for Visit and Comments: Blood Sugar Problem [465548] Knee Pain [272019] Diarrhea [35] - Back Pain [12] Normal [facility] Progress Noteon 02-27-2023 Progress Note No fever or chills, abdomen soft. Unknown etiology. Will check CBC and CMP. Consider stool culture if symptoms continue Normal [facility] Progress Note We will check CMP today Normal [facility] Progress Note UA positive nitrites and leuks moderate blood, will start antibiotic therapy sent for culture Normal [facility] Progress Note Controlled. Continue amlodipine 10 mg daily and lisinopril 40 mg daily Normal [facility] Progress Note Will check TSH today due to recent fatigue Normal [facility] Progress Note Patient has not followed up with wound center upon visualization today wound unchanged, advised to keep area as clean as possible with frequent changes of incontinence pads Normal [facility] Progress Note Uncontrolled. Patien t having difficulties with compliance. Continue insulin regimen. Possible increased glucose due to urinary tract infection we will treat Normal [facility] Progress Note 02/27/2023 Radha Sandoval (: [...] 2 times daily for 7 days., Starting 02/27/2023, Until Mon03/06/2023, Normal 8. Wound of right [...] her blood sugar today, noted In office [id number] testing 494. Urination Increased frequency, dysuria intermittently. [...] out soon. Has Maximino (son) work in [employer]. He may be able to help her [...] Lopez MD ergocalciferol (Vitamin D-2) 1.25 MG (91708 UT) capsule Take 1 capsule (1.25 mg) [...] mouth daily. 01/13/23 04/13/23 Yes Katia Bridenthal, HEEL BOOM OPERATOR - CUSTOMER PROFESSIONAL lisinopril 40 MG tablet Take 1 tablet (40 mg) by mouth daily. 12/08/22 Yes Katia Bridenthal, HEEL BOOM OPERATOR - CUSTOMER PROFESSIONAL meloxicam (Mobic) 7.5 MG tablet Take 1 tablet (7.5 mg) by mouth daily. 02/07/23 Yes Katia Gregenthal, HEEL BOOM OPERATOR - CUSTOMER PROFESSIONAL PARoxetine (Paxil) 20 MG tablet Take 1 tablet (20 mg) by mouth every morning. 12/08/22 Yes Katia Gregenthal, HEEL BOOM OPERATOR - CUSTOMER PROFESSIONAL potassium chlor (more content not included)... Normal [facility] Progress Note Please see if she rodriguez s gone to ER. Call and encourage her to go if she hasn't yet. Normal [facility] Progress Note Patient was identifi ed by name and Date of . POCT glucose at [facility]-provider notified. Normal [facility] Urinalysis macro (dipstick) panel (U)on 02-27-2023 Bil[facility], [facility]A [facility] Small [facility] Glucose, UA >1,000 [facility] Interpretation and review of laboratory results Abnormal [facility] Ketones, UA Trace [facility] Leukocytes, UA Moderate [facility] th Nitrite, UA Positive [facility] pH, UA 6.0 [facility] Protein, UA Trace [facility] Spec Grav, UA 1.010 [facility] Urobilinogen, UA 0.2 [facility] 36on 02-24-2023 36 S: Patient spoke wit h [facility] nurse regarding: Patient needs refill on Novolog. She is out of medication. B: Onset of symptoms/concern: today A: Pt states she needs refill of her Novolog pen, she is out. R: Pt is aware of message to provider for refill. Allergies and pharmacy verified. medical staff manager paged. Per YAZMIN Gracia Novolog Flexpen 16 units QID, 30 days, 0 refills. Called to [facility] pharmacy, order pended on chart. Reason for Disposition [1] Prescription refill request for ESSENTIAL medicine (i.e., likelihood of harm to patient if not taken) AND [2] triager unable to refill per department policy Protocols used: Medication Refill and Renewal [id number] [id number] Patient is out of medication. This was [...] prior to picking up the medication: Yes [place] [address] Noted. Agree with disposition. [place] [address] Sent a secure chat edie magallon Dora Precognate she is working on the [place]. [place] [address] S: Patient called [facility] clinical access perry with complaint of elevated blood sugar B: [...] diabetes) Protocols used: Diabetes - High Blood [id number] [facility] 36on 02-23-2023 36 faxed [place] [address] Not quite sure what that was all about but I guess I did which she told me to do instructions were kind of difficult to understand [place] [address] Re-printing and plac ing on your desk, need to resign next to original signature with the date and then initial next to Faby with the date. [facility] 36 Faxed on 02/17/23 [facility] 36 S: Patient spoke wit h [facility] nurse regarding High Blood Sugar [...] seen Protocols used: Diabetes - High Blood [facility] Name of caller: Paula Contact phone number: [phone] Relationship to Patient: CORAL Diabetic Provider: Dr. Lopez Practice: [facility] [...] as well. Rx can be sent to #[phone]. Please advise. Best time of day caller can be reached: Any Patient advised that office/PCP has 24-48 business hours to return their call: No [facility] 36on 02-17-2023 36 Noted. Fax put in burt x to go out [facility] 36 Name of caller: Colette noel Contact phone number: [phone] Relationship to Patient: GEORGIAT Provider: Dr. Lopez Practice: [facility] Chief Complaint/Reason for Call: Caller wanted to follow up regarding request for pt diabetic continuous glucose meter that was faxed on 02.02.2023. Caller stated they received the Rx but the Rx was incomplete. Caller would like to ask office to re write with doctors initial and fax again to: [phone]. Please advise. Thank you. Best time of day caller can be reached: Any Patient advised that office/PCP has 24-48 business hours to return their call: Yes [facility] PATINSon 02-15-2023 PATINS Return in 1 week rené Magallanes If you have any questions or concerns, please call our wound center at [phone] or [phone]. Offloading Try to avoid pressure and sheering [...] [facility] 02-14-2023 36 Notified. [facility] 36 Rx sent [place] [address] Spoke with patient s he found the bottle and it is the baclofen [place] [address] The only medications on her list and on her history it would have been used for cramps in her legs would have been her Mirapex and that 1 was just refilled in December for baclofen which is an actual muscle relaxer and that was refilled in December other than those I do not know what she would be talking about [place] [address] S: Patient spoke wit h [facility] nurse regarding out of medication [...] policy Protocols used: Medication Refill and Renewal [id number] [facility] Office Visiton 02-07-2023 Follow-up visit [id number] Radha Sandoval 1945 F Date Provider Department Center 02/07/2023 [id number] GRANADOS [facility] Family History Problem Relation Age of Onset Mental illness Mother Depression Mother Heart disease Father High Blood Pressure Father Asthma Father Hypertension Father Diabetes Brother Family Status - Relation Status Age at Mother Father Brother Level of Service:19426 NE OFFICE/OUTPATIENT ESTABLISHED LOW [facility] 20-29 MIN Reason for Visit and Comments: Sore [658120] - On buttocks-getting worse [facility] Progress Noteon 02-07-2023 Progress Note Chronic. Refill mobic. [facility] Progress Note Avoid pressure to ar ea, avoid friction, keep area as dry as possible. Refer to wound clinic. [facility] Progress Note 02/07/2023 Radha Sandoval (: [...] Arriaza CNP ergocalciferol (Vitamin D-2) 1.25 MG (90173 UT) capsule Take 1 capsule (1.25 mg) [...] mcg) by mouth daily. 01/13/23 04/13/23 Katia Ronnyal, HEEL BOOM OPERATOR - CUSTOMER PROFESSIONAL lisinopril 40 MG tablet Take 1 tablet (40 mg) by mouth daily. 12/08/22 Katia Gregenthal, HEEL BOOM OPERATOR - CUSTOMER PROFESSIONAL PARoxetine (Paxil) 20 MG tablet Take 1 tablet (20 mg) by mouth every morning. 12/08/22 Katia Ronnyal, HEEL BOOM OPERATOR - CUSTOMER PROFESSIONAL pramipexole (Mirapex) 0.125 MG tablet Take 2 tablets (0.25 mg) by mouth Nightly. 01/13/23 03/14/23 Katia Gregenthal, HEEL BOOM OPERATOR - CUSTOMER PROFESSIONAL rosuvastatin (Crestor) 10 MG tablet Take 1 tablet (10 mg) by mouth daily. 12/08/22 Katia Gregenthal, HEEL BOOM OPERATOR - CUSTOMER PROFESSIONAL senna-docusate sodium (Senokot-S) 8.6-50 MG tablet Take 1 tablet by mouth daily. 12/13/22 02/11/23 Katia Ronnyal, HEEL BOOM OPERATOR - CUSTOMER PROFESSIONAL zolpidem (Ambien) 10 MG tablet Take 1 tablet (10 mg) by mouth Nightly as needed for sleep. Do not start before December 22, 2022. 12/22/22 01/21/23 Katia ELSA Granados - JORGE Review of Systems Constitutional: Negative [...] was used to authenticate this note. Katia Rosaline, HEEL BOOM OPERATOR - CUSTOMER PROFESSIONAL 02/07/2023 12:53 PM [facility] Progress Note Patient was identifi ed by name and Date of . PHARMACY VERIFIED WITH [facility]. [facility] 36on 02-06-2023 36 S: Pt calling [...] splenectomy, organ transplant, chronic steroids) Protocols used: [facility] Basic metabolic 1998 panelon 12-07-2022 Anion gap [Moles/Vol] 4 mmol/L 3 - 13 mmol/L [facility] Calcium [Mass/Vol] 7.2 mg/dL Low 8.4 - 10. 4 mg/dL [facility] Chloride [Moles/Vol] 110 mmol/L High 98 - 10 7 mmol/L [facility] CO2 [Moles/Vol] 24 mmol/L 22 - 30 mmol/L [facility] Creatinine [Mass/Vol] 0.63 mg/dL 0.52 - 1.04 mg/dL [facility] GFR/1.73 sq M.predicted MDRD (S/P/Bld) [Vol rate/Area] - PINF [facility] Comment on above: Calculation based on the Chronic Kidney Disease Epidemiology Collaboration (CKD-EPI) equation refit without adjustment for race Glucose [Mass/Vol] 182 mg/dL High 70 - 100 mg/dL [facility] Interpretation and review of laboratory results Abnormal [facility] Potassium [Moles/Vol] 3.3 mmol/L Low 3.5 - 5.1 mmol/L [facility] Sodium [Moles/Vol] 137 mmol/L 135 - 145 mmol/L [facility] Urea nitrogen [Mass/Vol] 14 mg/dL 7 - 17 mg/dL [facility] CBC panel Auto (Bld)Ordered By: Wendy Bruce on 12-07-2022 Erythrocyte distribution width (RBC) [Ratio] 13.8 % 11.5 - 14.5 % [facility] Hematocrit (Bld) [Volume fraction] 33.0 % Low 35.0 - 47.0 % [facility] Hemoglobin (Bld) [Mass/Vol] 10.6 g/dL Low 11.7 - 16.0 g/dL [facility] Interpretation and review of laboratory results Abnormal [facility] MCH (RBC) [Entitic mass] 29.3 pg 26.0 - 34.0 pg [facility] MCHC (RBC) [Mass/Vol] 32.2 % 32.0 - 36.0 % [facility] MCV (RBC) [Entitic vol] 90.8 fL 80.0 - 98.0 fL [facility] Platelet mean volume (Bld) [Entitic vol] 8.1 fL 7.4 - 12.4 fL [facility] Platelets (Bld) [#/Vol] 230 10*3/uL 140 - 440 10*3/uL [facility] RBC (Bld) [#/Vol] 3.63 10*6/uL Low 3.8 - 5.20 10*6/uL [facility] WBC (Bld) [#/Vol] 10.7 10*3/uL 3.6 - 10.7 10*3/uL [facility] Comprehensive metabolic 1998 panelon 12-07-2022 Albumin [Mass/Vol] 3.4 g/dL Low 3.5 - 5.0 g/dL [facility] ALP [Catalytic activity/Vol] 96 U/L 38 - 126 U/L [facility] ALT [Catalytic activity/Vol] 15 U/L 0 - 34 U/L [facility] Anion gap [Moles/Vol] 4 mmol/L 3 - 13 mmol/L [facility] AST [Catalytic activity/Vol] 40 U/L 15 - 46 U/L [facility] Bilirubin [Mass/Vol] 0.5 mg/dL 0.2 - 1 .3 mg/dL [facility] Calcium [Mass/Vol] 7.5 mg/dL Low 8.4 - 10. 4 mg/dL [facility] Chloride [Moles/Vol] 105 mmol/L 98 - 10 7 mmol/L [facility] CO2 [Moles/Vol] 27 mmol/L 22 - 30 mmol/L [facility] Creatinine [Mass/Vol] 0.76 mg/dL 0.52 - 1.04 mg/dL [facility] GFR/1.73 sq M.predicted MDRD (S/P/Bld) [Vol rate/Area] 79.8 mL/min/{1.73_m2} - PINF [facility] Comment on above: Calculation based on the Chronic Kidney Disease Epidemiology Collaboration (CKD-EPI) equation refit without adjustment for race Glucose [Mass/Vol] 188 mg/dL High 70 - 100 mg/dL [facility] Interpretation and review of laboratory results Abnormal [facility] Potassium [Moles/Vol] 3.4 mmol/L Low 3.5 - 5.1 mmol/L [facility] Protein [Mass/Vol] 6.2 g/dL Low 6.3 - 8.2 g/dL [facility] Sodium [Moles/Vol] 136 mmol/L 135 - 145 mmol/L [facility] Urea nitrogen [Mass/Vol] 10 mg/dL 7 - 17 mg/dL [facility] Hemoglobin (Bld) [Mass/Vol]O rdered By: Humphrey Juarez on 12-07-2022 Hematocrit (Bld) [Volume fraction] 33.8 % Low 35.0 - 47.0 % [facility] Interpretation and review of laboratory results Abnormal [facility] Hemoglobin (Bld) [Mass/Vol]o n 12-07-2022 Hematocrit (Bld) [Volume fraction] 33.6 % Low 35.0 - 47.0 % [facility] Interpretation and review of laboratory results Abnormal [facility] Hemoglobin (Bld) [Mass/Vol]O rdered By: Rosey Viera on 12-07-2022 Hematocrit (Bld) [Volume fraction] 32.0 % Low 35.0 - 47.0 % [facility] Interpretation and review of laboratory results Abnormal [facility] Laboratory - Chemistry and C hemistry - challengeon 12-07-2022 Magnesium [Mass/Vol] 1.3 mg/dL Low 1.6 - 2 .3 mg/dL [facility] Glucose [Mass/Vol] 179 mg/dL High 70 - 100 mg/dL [facility] Glucose [Mass/Vol] 158 mg/dL High 70 - 100 mg/dL [facility] Glucose [Mass/Vol] 160 mg/dL High 70 - 100 mg/dL [facility] Laboratory - Hematology and Cell countsOrdered By: Humphrey Juarez on 12-07-2022 Hemoglobin (Bld) [Mass/Vol] 10.9 g/dL Low 11.7 - 16.0 g/dL [facility] Laboratory - Hematology and Cell countson 12-07-2022 Hemoglobin (Bld) [Mass/Vol] 11.0 g/dL Low 11.7 - 16.0 g/dL [facility] Laboratory - Hematology and Cell countsOrdered By: Rosey Viera on 12-07-2022 Hemoglobin (Bld) [Mass/Vol] 10.4 g/dL Low 11.7 - 16.0 g/dL [facility] Magnesium [Mass/Vol]on 12-07 Interpretation and review of laboratory results Abnormal [facility] No Panel Informationon 12-07 Interpretation and review of laboratory results Abnormal [facility]formed by: [facility], [address] [id number] CLIA ID: [id number] [facility] Interpretation and review of laboratory results Abnormal [facility] Performed by: [facility], [address] [address] CLIA ID: [id number] [facility] Interpretation and review of laboratory results Abnormal [facility] Performed by: [facility], [address] [address] CLIA ID: [id number] [facility] Basic metabolic 1998 panelon 12-06-2022 Anion gap [Moles/Vol] 2 mmol/L Low 3 - 13 mmol/L [facility] Calcium [Mass/Vol] 7.9 mg/dL Low 8.4 - 10. 4 mg/dL [facility] Chloride [Moles/Vol] 105 mmol/L 98 - 10 7 mmol/L [facility] CO2 [Moles/Vol] 26 mmol/L 22 - 30 mmol/L [facility] Creatinine [Mass/Vol] 0.68 mg/dL 0.52 - 1.04 mg/dL [facility] GFR/1.73 sq M.predicted MDRD (S/P/Bld) [Vol rate/Area] 88.7 mL/min/{1.73_m2} - PINF [facility] Comment on above: Calculation based on the Chronic Kidney Disease Epidemiology Collaboration (CKD-EPI) equation refit without adjustment for race Glucose [Mass/Vol] 169 mg/dL High 70 - 100 mg/dL [facility] Interpretation and review of laboratory results Abnormal [facility] Potassium [Moles/Vol] 3.5 mmol/L 3.5 - 5.1 mmol/L [facility] Sodium [Moles/Vol] 134 mmol/L Low 135 - 145 mmol/L [facility] Urea nitrogen [Mass/Vol] 18 mg/dL High 7 - 17 mg/dL [facility] CBC panel Auto (Bld)Ordered By: Donavan Hernandez on 12-06-2022 Erythrocyte distribution width (RBC) [Ratio] 13.7 % 11.5 - 14.5 % [facility] Hematocrit (Bld) [Volume fraction] 33.4 % Low 35.0 - 47.0 % [facility] Hemoglobin (Bld) [Mass/Vol] 11.1 g/dL Low 11.7 - 16.0 g/dL [facility] Interpretation and review of laboratory results Abnormal [facility] MCH (RBC) [Entitic mass] 29.7 pg 26.0 - 34.0 pg [facility] MCHC (RBC) [Mass/Vol] 33.2 % 32.0 - 36.0 % [facility] MCV (RBC) [Entitic vol] 89.5 fL 80.0 - 98.0 fL [facility] Platelet mean volume (Bld) [Entitic vol] 8.4 fL 7.4 - 12.4 fL [facility] Platelets (Bld) [#/Vol] 233 10*3/uL 140 - 440 10*3/uL [facility] RBC (Bld) [#/Vol] 3.73 10*6/uL Low 3.8 - 5.20 10*6/uL [facility] WBC (Bld) [#/Vol] 9.8 10*3/uL 3.6 - 10.7 10*3/uL [facility] Hemoglobin (Bld) [Mass/Vol]o n 12-06-2022 Hematocrit (Bld) [Volume fraction] 36.6 % 35.0 - 47.0 % [facility] Interpretation and review of laboratory results Normal [facility] Hematocrit (Bld) [Volume fraction] 34.3 % Low 35.0 - 47.0 % [facility] Interpretation and review of laboratory results Abnormal [facility] Hemoglobin (Bld) [Mass/Vol]O rdered By: Lizeth Mckeon on 12-06-2022 Hematocrit (Bld) [Volume fraction] 33.9 % Low 35.0 - 47.0 % [facility] Interpretation and review of laboratory results Abnormal [facility] Iron and Iron binding capaci ty panelon 12-06-2022 Interpretation and review of laboratory results Normal [facility] Iron [Mass/Vol] 87 ug/dL 37 - 170 ug/dL [facility] Iron binding capacity [Mass/Vol] 298 ug/dL 261 - 497 ug/dL [facility] Iron saturation [Mass fraction] 29 % 15 - 50 % [facility] Laboratory - Chemistry and C hemistry - challengeon 12-06-2022 Glucose [Mass/Vol] 183 mg/dL High 70 - 100 mg/dL [facility] Glucose [Mass/Vol] 258 mg/dL High 70 - 100 mg/dL [facility] Glucose [Mass/Vol] 238 mg/dL High 70 - 100 mg/dL [facility] Glucose [Mass/Vol] 160 mg/dL High 70 - 100 mg/dL [facility] Laboratory - Coagulationon 0 12-06-2022 aPTT Coag (PPP) [Time] 25.4 s 20.0 - 30.5 s [facility] INR Coag (PPP) [Relative time] 1.0 {INR} 0.9 - 1.1 [facility] Comment on above: Recommended Anticoag ulant [...] 11.2 s 9.0 - 1 2.0 s [facility] Laboratory - Hematology and Cell countson 12-06-2022 Hemoglobin (Bld) [Mass/Vol] 12.0 g/dL 11.7 - 16.0 g/dL [facility] Hemoglobin (Bld) [Mass/Vol] 11.3 g/dL Low 11.7 - 16.0 g/dL [facility] Laboratory - Hematology and Cell countsOrdered By: Lizeth Mckeon on 12-06-2022 Hemoglobin (Bld) [Mass/Vol] 11.0 g/dL Low 11.7 - 16.0 g/dL [facility] [place] No Panel Informationon 12-06 Interpretation and review of laboratory results Abnormal [facility] Performed by: [facility], [address] [place] [id number] CLIA ID: [id number] [facility] Interpretation and review of laboratory results Abnormal [facility] Performed by: [facility], [address] [place] [address] CLIA ID: [id number] [facility] Interpretation and review of laboratory results Abnormal [facility] Performed by: [facility], [address] [place] [address] CLIA ID: [id number] [facility] Interpretation and review of laboratory results Normal [facility] Interpretation and review of laboratory results Abnormal [facility] Performed by: [facility], [address] [place] [id number] CLIA ID: [id number] [facility] Basic metabolic 1998 panelon 12-05-2022 Anion gap [Moles/Vol] 5 mmol/L 3 - 13 mmol/L [facility] Calcium [Mass/Vol] 8.7 mg/dL 8.4 - 10. 4 mg/dL [facility] Chloride [Moles/Vol] 102 mmol/L 98 - 10 7 mmol/L [facility] CO2 [Moles/Vol] 29 mmol/L 22 - 30 mmol/L [facility] Creatinine [Mass/Vol] 0.91 mg/dL 0.52 - 1.04 mg/dL [facility] GFR/1.73 sq M.predicted MDRD (S/P/Bld) [Vol rate/Area] 64.3 mL/min/{1.73_m2} - PINF [facility] Comment on above: Calculation based on the Chronic Kidney Disease Epidemiology Collaboration (CKD-EPI) equation refit without adjustment for race Glucose [Mass/Vol] 260 mg/dL High 70 - 100 mg/dL [facility] Interpretation and review of laboratory results Abnormal [facility] Potassium [Moles/Vol] 4.0 mmol/L 3.5 - 5.1 mmol/L [facility] Sodium [Moles/Vol] 136 mmol/L 135 - 145 mmol/L [facility] Urea nitrogen [Mass/Vol] 26 mg/dL High 7 - 17 mg/dL [facility] Blood type and Crossmatch pa rodney (Bld)on 12-05-2022 ABO group Nom (Bld) O [facility] Blood group antibody screen GEL Ql Negative [facility] D Ag Ql (RBC) Positive [facility] h [facility] CBC W Auto Differential pane l (Bld)Ordered By: Clayton Lozano on 12-05-2022 Basophils (Bld) [#/Vol] 0.1 10*3/uL 0.0 - 0.2 10*3/uL [facility] Basophils/100 WBC (Bld) 0.7 % 0.0 - 2.0 % [facility] Eosinophils (Bld) [#/Vol] 0.2 10*3/uL 0.0 - 0.5 10*3/uL [facility] Eosinophils/100 WBC (Bld) 2.0 % 1.0 - 6.0 % [facility] Erythrocyte distribution width (RBC) [Ratio] 13.9 % 11.5 - 14.5 % [facility] Hematocrit (Bld) [Volume fraction] 39.3 % 35.0 - 47.0 % [facility] Hemoglobin (Bld) [Mass/Vol] 12.9 g/dL 11.7 - 16.0 g/dL [facility] Interpretation and review of laboratory results Abnormal [facility] Lymphocytes (Bld) [#/Vol] 1.8 10*3/uL 1.0 - 4.3 10*3/uL [facility] Lymphocytes/100 WBC (Bld) 14.3 % Low 20.0 - 40.0 % [facility] MCH (RBC) [Entitic mass] 29.5 pg 26.0 - 34.0 pg [facility] MCHC (RBC) [Mass/Vol] 32.8 % 32.0 - 36.0 % [facility] MCV (RBC) [Entitic vol] 89.8 fL 80.0 - 98.0 fL [facility] Monocytes (Bld) [#/Vol] 1.0 10*3/uL High 0.0 - 0.8 10*3/uL [facility] Monocytes/100 WBC (Bld) 7.6 % 2.0 - 10.0 % [facility] Neutrophils (Bld) [#/Vol] 9.4 10*3/uL High 1.8 - 7.0 10*3/uL [facility] Neutrophils/100 WBC (Bld) 75.4 % 40.0 - 80.0 % [facility] Nucleated RBC/100 WBC (Bld) [Ratio] 0.1 % [facility] Platelet mean volume (Bld) [Entitic vol] 8.6 fL 7.4 - 12.4 fL [facility] Platelets (Bld) [#/Vol] 271 10*3/uL 140 - 440 10*3/uL [facility] RBC (Bld) [#/Vol] 4.37 10*6/uL 3.8 - 5.20 10*6/uL [facility] WBC (Bld) [#/Vol] 12.5 10*3/uL High 3.6 - 10.7 10*3/uL [facility] CBC panel Auto (Bld)on 12-05 Erythrocyte distribution width (RBC) [Ratio] 13.7 % 11.5 - 14.5 % [facility] Hematocrit (Bld) [Volume fraction] 37.9 % 35.0 - 47.0 % [facility] Hemoglobin (Bld) [Mass/Vol] 12.3 g/dL 11.7 - 16.0 g/dL [facility] Interpretation and review of laboratory results Abnormal [facility] MCH (RBC) [Entitic mass] 29.2 pg 26.0 - 34.0 pg [facility] MCHC (RBC) [Mass/Vol] 32.4 % 32.0 - 36.0 % [facility] MCV (RBC) [Entitic vol] 90.1 fL 80.0 - 98.0 fL [facility] Platelet mean volume (Bld) [Entitic vol] 8.3 fL 7.4 - 12.4 fL [facility] Platelets (Bld) [#/Vol] 244 10*3/uL 140 - 440 10*3/uL [facility] RBC (Bld) [#/Vol] 4.21 10*6/uL 3.8 - 5.20 10*6/uL [facility] WBC (Bld) [#/Vol] 11.6 10*3/uL High 3.6 - 10.7 10*3/uL [facility] CT Abdomen and Pelvis W cont rast Anna 12-05-2022 The etiology of the symptoms is not certain. No extravasation of contrast visualized. Report Dictated on Electronically Signed By: Toñito Chandra Electronically Signed Date/Time: 12/05/2022 3:55 PM EDT [facility] Patient Name: RADHA SANDOVAL : 1945 [facility]#: [id number] Exam Date/Time: 12/05/2022 15:39 Procedure: CT ABDOMEN [...] soft tissues. Abdominal wall:Ventral hernia fat only. [facility] Toñito Chandra MD - 12/05/2022 [facility] 1945 [id number] Exam Date/Time: 12/05/2022 15:39 Procedure: CT ABDOMEN [...] Electronically Signed Date/Time: 12/05/2022 3:55 PM EDT [facility] Study observation (narrative) Rogelio Perdomo alth CT Abdomen and Pelvis W cont rast IVOrdered By: Toñito Chandra on 12-05-2022 [employer] Work Phone: Hemoglobin (Bld) [Mass/Vol]o n 12-05-2022 Interpretation and review of laboratory results Normal [facility] Hepatic function 2000 panelo n 12-05-2022 Albumin [Mass/Vol] 4.0 g/dL 3.5 - 5.0 g/dL [facility] ALP [Catalytic activity/Vol] 107 U/L 38 - 126 U/L [facility] ALT [Catalytic activity/Vol] 16 U/L 0 - 34 U/L [facility] AST [Catalytic activity/Vol] 25 U/L 15 - 46 U/L [facility] Bilirubin [Mass/Vol] 0.9 mg/dL 0.2 - 1 .3 mg/dL [facility] Bilirubin.conjugated [Mass/Vol] 0.0 mg/dL 0.0 - 0.3 mg/dL [facility] Protein [Mass/Vol] 7.2 g/dL 6.3 - 8.2 g/dL [facility] Laboratory - Chemistry and C hemistry - challengeon 12-05-2022 Glucose [Mass/Vol] 196 mg/dL High 70 - 100 mg/dL [facility] Glucose [Mass/Vol] 215 mg/dL High 70 - 100 mg/dL [facility] Lipase [Catalytic activity/Vol] 43 U/L 23 - 300 U/L [facility] Laboratory - Coagulationon 0 12-05-2022 aPTT Coag (PPP) [Time] 22.1 s 20.0 - 30.5 s [facility] INR Coag (PPP) [Relative time] 1.0 {INR} 0.9 - 1.1 [facility] Comment on above: Recommended Anticoag ulant [...] 11.0 s 9.0 - 1 2.0 s [facility] Laboratory - Hematology and Cell countson 12-05-2022 Hemoglobin (Bld) [Mass/Vol] 12.2 g/dL 11.7 - 16.0 g/dL [facility] No Panel Informationon 12-05 Interpretation and review of laboratory results Abnormal [facility], [address] [address] CLIA ID: [id number] [facility] Interpretation and review of laboratory results Normal [facility] Interpretation and review of laboratory results Abnormal [facility] Performed by: [facility], [address] [address] CLIA ID: [id number] [facility] Interpretation and review of laboratory results Normal [facility] XR CHEST (2 VW)on 09-09-2021 Patient Name: RADHA SANDOVAL Diagnostic Radiology ACCESSION EXAM DATE/TIME PROCEDURE ORDERING PROVIDER [id number] 09/09/2021 10:10 EDT CR Chest PA & LAT MD LOPEZ DARRELL LEROY CPT code 73672 Reason For Exam (CR Chest PA & [...] ROBERT Transcribed Date and Time: 09/09/2021 3:49 [facility] Vera Helton - 09/09/2021 Patient Name: RADHA SANDOVAL Diagnostic Radiology ACCESSION EXAM DATE/TIME PROCEDURE ORDERING PROVIDER [id number] 09/09/2021 10:10 EDT CR Chest PA & LAT MD LOPEZ DARRELL LEROY CPT code 97103 Reason For Exam (CR Chest PA & [...] infiltrate or effusion. Report Dictated on Workstation: [employer] [place] --- Final --- Dictating Physician: MD HELTON YUN ROBERT Signed Date and Time: 09/09/2021 3:48 pm Signed by: MD HELTON YUN ROBERT Transcribed Date and Time: 09/09/2021 3:49 [facility] Work Phone: Radiology Study observation (narrative) [facility] Work Phone: XR CHEST (2 VW)Ordered By: Haven Helton on 09-09-2021 [facility] Work Phone: VL PVR Arterial Doppler Lwr w/o Exerciseon 08-25-2021 VL PVR Arterial Doppler Lwr w/o Exercise [facility]: [id number] ACCESSION EXAM DATE/TIME PROCEDURE ORDERING PROVIDER [id number] 08/25/2021 10:09 EST VL PVR Arterial Doppler [id number] -RAMON SOMMER Lwr w/o Exercise CPT code 52117 Reason For Exam (VL PVR Arterial Doppler Lwr w/o Exercise) PVD with ulcer of left leg Report [facility] -- Multilevel Lower Extremity Arterial Evaluation Report Patient Radha Sandoval : 1945 Study 08/25/2021 Name: Eduardo (75yrs) Date: Age: 75 Account: [id number] Gender: F Loc: BP: Ordering Physician: Sommer Chatterjee Alterations Sewer: Clayton Lr RVT Interpreting Physician: Wicho Morales MD -- Location: [facility] -- Indications: PVD with ulcer. -- Conclusions [...] supine position. Images were obtained using a [employer] vascular ultrasound machine. -- Arterial pressure indices: [...] Time: 08/25/2021 11:49 am Signed by: WICHO OMRALES Cardiovascular ACCESSION EXAM DATE/TIME PROCEDURE [id number] 08/25/2021 10:09 EST VL PVR Arterial Doppler Lwr w/o Exercise CPT code 32387 Reason For Exam (VL PVR Arterial Doppler Lwr w/o Exercise) PVD with ulcer of left leg Report [facility] -- Multilevel Lower Extremity Arterial Evaluation Report Patient Radha Sandoval : 1945 Study 08/25/2021 Name: Eduardo (75yrs) Date: Age: 75 Account: [id number] Gender: F Loc: BP: Cardiovascular Report Ordering Physician: Sommer Chatterjee Alterations Sewer: Clayton Lr RVT Interpreting Physician: Wicho Morales MD -- Location: [facility] -- Indications: PVD with ulcer. -- Conclusions [...] PVR wave (more content not included)... Normal [facility] CULT/STAIN - AEROBIC AND KENNA MARTHAon 08-07-2021 CULT/STAIN - AEROBIC AND ANAEROBIC STAIN [...] <= 2 S Amoxicillin/Clavulanic Acid(LAVINIA) R Normal [facility] Comment on above: Performed By: #### C CARINA #### [address] [id number] [id number] Culture, Anaerobic and Aerob icon 08-07-2021 Aerobic Culture Mixed skin amandeep present. No Pseudomonas aeruginosa isolated. No beta-hemolytic streptococcus isolated. Abnormal [facility] Aerobic Culture Staphylococcus aureus Abnormal [facility] Aerobic Culture Few [facility] Aerobic Culture Citrobacter freundii Abnormal [facility] Few For serious infections outside of the urinary tract, third generation cephalosporins may not be effective, even if test results indicate the organism is sensitive. [facility] Anaerobic Culture No growth of anaerob es at 5 days. [facility] Gram Stain Result No polymorphonuclear cells/lpf. Rare gram positive cocci in clusters. [facility] Interpretation and review of laboratory results Abnormal [facility] Test Performed by [id number] [place] [address] LAB [facility] CR Chest PA/LATon 04-22-2021 CR Chest PA/LAT Patient Name: RADHA SANDOVAL Diagnostic Radiology ACCESSION EXAM DATE/TIME PROCEDURE ORDERING PROVIDER [id number] 04/22/2021 11:32 EDT CR Chest PA and LAT MD LOPEZ DARRELL LEROY CPT code 09821 Reason For Exam (CR Chest PA and [...] Transcribed Date and Time: 04/22/2021 11:47 Normal [facility] MG Breast Tomosynthesis Scr Blon 04-22-2021 MG Breast Tomosynthesis Scr Bl Patient Name: RADHA SANDOVAL Mammography ACCESSION EXAM DATE/TIME PROCEDURE ORDERING PROVIDER [id number] 04/22/2021 11:11 EDT MG Breast Tomosynthesis MD LOPEZ DARRELL BI Scr LEROY CPT code 37234 84217 Reason For Exam (MG Breast Tomosynthesis BI [...] images: BB's = Nipples; skin lesions Open kake = Palpable Line = Scar 2D digital [...] am Signed by: MD HELTON YUN ROBERT [facility] OT Bone Density DEXA Axial S haylie 04-22-2021 OT Bone Density DEXA Axial Skeleton Patient Name: RADHA SANDOVAL Bone Density ACCESSION EXAM DATE/TIME PROCEDURE ORDERING PROVIDER [id number] 04/22/2021 10:45 EDT OT Bone Density DEXA MD JOHN, SHIV Axial Skeleton [place] CPT code 75632 Reason For Exam (OT Bone Density DEXA Axial Skeleton) menopause Report DXA BONE DENSITOMETRY: CLINICAL INDICATION: Asymptomatic post-menopausal status COMPARISON: None TECHNIQUE: Quantitative bone mineral densitometry of the hip and lumbar spine was performed with a dual energy x-ray observed absorptiometry device - [facility]. Regions of interest were obtained [...] recommendations for prevention of bone loss include: 2316-9485 mg calcium intake per day for adults [...] and Follow-up. Christa [employer] Evidence-Based Summaries. Formerly [facility] [employer] for Education and Research. 2017 Bone Density Report Report Dictated on Final Dictating Physician: MD DELVALLE LAUREN B Signed Date and Time: 04/23/2021 8:00 am Signed by: MD DELVALLE LAUREN B Transcribed Date and Time: 04/23/2021 8:01 Normal [facility] System ECHO Complete 2D W Doppler W ColorOrdered By: Shiv Lopez on 10-07-2020 TRANSTHORACIC ECHOCARDIOGRAM PATIENT: Radha Sandoval STUDY DATE: 10/07/2020 : 1945 AGE: 75 HT/WT: 170.2 cm (67 117.9 kg in) (259.4 lb) GENDER: F BP: 144 / 89 LOCATION: [facility] STATUS: *ORDERING PHYSICIAN: * Shiv LopezREADING PHYSICIAN: * Stuart Grier, *TRAILER DRIVER: * Lizzette Dejesus MD RDCS, AE -- [...] LV ID, ES (more content not included)... [employer] Work Phone: Jone, [facility] Incoming Cardiology Results From [facility] - 10/07/2020 3:44 PM EDT TRANSTHORACIC ECHOCARDIOGRAM PATIENT: Radha Sandoval STUDY DATE: 10/07/2020 : 1945 AGE: 75 HT/WT: 170.2 cm (67 117.9 kg in) (259.4 lb) GENDER: F BP: 144 / 89 LOCATION: [facility] STATUS: *ORDERING PHYSICIAN: * Shiv Lopez *READING PHYSICIAN: * Stuart Grier, *TRAILER DRIVER: * Lizzette Dejesus MD, RD, AE -- INDICATIONS: Localized edema (R60.0). [...] LV end-diastolic volum (more content not included)... [facility] Work Phone: Echo Complete w/wo Contrasto n 10-07-2020 Echo Complete w/wo Contrast Patient Name: RADHA SANDOVAL Ultrasound ACCESSION EXAM DATE/TIME PROCEDURE ORDERING PROVIDER [id number] 10/07/2020 14:50 EDT Echo Complete w/wo MD JOHN, SHIV AGRAWAL Reason For Exam (Echo Complete w/wo Contrast) edema Report TRANSTHORACIC ECHOCARDIOGRAM PATIENT: Radha Sandoval STUDY DATE: 10/07/2020 : 1945 AGE: 75 HT/WT: 170.2 cm (67 117.9 kg in) (259.4 lb) GENDER: F BP: 144 / 89 LOCATION: [facility] STATUS: *ORDERING PHYSICIAN: * Shiv Lopez *READING PHYSICIAN: * Stuart Grier, *TRAILER DRIVER: * Lizzette Dejesus MD RDCS, AE -- [...] ED 0.31 (more content not included)... Normal [facility] Basic Metabolic Panelon 08- Anion gap [Moles/Vol] 10 mmol/L [place], [place] Calcium [Mass/Vol] 8.7 mg/dL 8.4 - 10. 4 mg/dL [place], [place] Chloride [Moles/Vol] 101 mmol/L 98 - 10 7 mmol/L [place] CO2 [Moles/Vol] 27 mmol/L 22 - 30 mmol/L [place] Creatinine [Mass/Vol] 1.13 mg/dL 0.52 - 1.25 mg/dL [place] EGFR IF NonAfrican Cypriot 46.9 mL/min >60 [place] Comment on above: Source- MDRD equatio n with creatinine calibration to IDMS(NKDEP) eGFR not recommended for drug dose adjustment GFR/1.73 sq M predicted among blacks MDRD (S/P/Bld) [Vol rate/Area] 56.8 mL/min/{1.73_m2} >60 [place] Glucose [Mass/Vol] 139 mg/dL High 70 - 100 mg/dL [place] Interpretation and review of laboratory results Abnormal [place] Potassium [Moles/Vol] 4.3 mmol/L 3.5 - 5.1 mmol/L [place] Sodium [Moles/Vol] 137 mmol/L 135 - 145 mmol/L [place] Urea nitrogen [Mass/Vol] 18 mg/dL 7 - 20 mg/dL [place] CBCon 02-01-2019 Erythrocyte distribution width (RBC) [Ratio] 13.4 % 11.5 - 14.5 % [place] Hematocrit (Bld) [Volume fraction] 35.1 % 35 - 47 % [place] Hemoglobin (Bld) [Mass/Vol] 11.8 g/dL 11.7 - 16 g/dL [place] MCH (RBC) [Entitic mass] 30.2 pg 26 - 34 pg [place] MCHC (RBC) [Mass/Vol] 33.8 % 32 - 36 % [place] MCV (RBC) [Entitic vol] 89.4 fL 79 - 98 fL [place], [place] Platelet mean volume (Bld) [Entitic vol] 7.6 fL 7.4 - 10.4 fL [place] Platelets (Bld) [#/Vol] 419 10*3/uL 140 - 440 10*3/uL [place] RBC (Bld) [#/Vol] 3.92 10*6/uL 3.8 - 5.2 10*6/uL [place] WBC (Bld) [#/Vol] 9.4 10*3/uL 3.6 - 10.7 10*3/uL [place] CT CERVICAL SPINE WO CONTRUNRULY Harmon 02-01-2019 [facility] Incoming Radiology Results From [facility] - 02/01/2019 7:24 PM EDT Patient Name: RADHA SANDOVAL ---CT--- Exam Date/Time 02/01/2019 18:57:[address] Spine Cervical w/o Contrast Ordering Physician MD HANKINS ALEKSANDAR Accession Number [id number] CPT4 Codes 72804 () Reason For Exam NECK PAIN FOLLOWING [...] NELSON Transcribed Date and Time: 02/01/2019 7:12 [place], [place] Patient Name: RADHA SANDOVAL ---CT--- Exam Date/Time 02/01/2019 18:57:[address] Spine Cervical w/o Contrast Ordering Physician MD HANKINS ALEKSANDAR Accession Number [id number] CPT4 Codes 95591 () Reason For Exam NECK PAIN FOLLOWING [...] NELSON Transcribed Date and Time: 02/01/2019 7:12 [place], [place] CT HEAD WO CONTRASTon 2018 [facility] Incoming Radiology Results From [facility] - 02/01/2019 7:40 PM EDT Patient Name: RADHA SANDOVAL ---CT--- Exam Date/Time 02/01/2019 18:57:[address] Head or Brain w/o Contrast Ordering Physician MD CR, DUNCAN Accession Number [id number] CPT4 Codes 35254 () Reason For Exam HEAD INJURY MILD [...] R Transcribed Date and Time: 02/01/2019 7:35 [place] Patient Name: RADHA SANDOVAL ---CT--- Exam Date/Time 02/01/2019 18:57:[address] Head or Brain w/o Contrast Ordering Physician MD CR, DUNCAN Accession Number [id number] CPT4 Codes 75324 () Reason For Exam HEAD INJURY MILD [...] R Transcribed Date and Time: 02/01/2019 7:35 [place] Ethanolon 02-01-2019 Ethanol Lvl <0.010 0 - 0.01 g/dL [place] Comment on above: NOTE: This result is for medical treatment only. Analysis performed using non-forensic procedures. Otheron 02-01-2019 Test Performed by [address]- [place], [place] Protime/INR & PTTon 02-02-20 19 aPTT Coag (Bld) [Time] 23.9 s 20 - 30.5 s [place], [place] Comment on above: NOTE: The therapeuti c time for Heparin anticoagulation, based on Xa activity inhibition, is an APTT of 46-80 seconds. INR Coag (PPP) [Relative time] 0.9 {INR} [place] Comment on above: Recommended Anticoag ulant [...] [Time] 9.9 s 9 - 12 s [place], [place] Comment on above: . TYPE AND SCREENon 02-01-2019 Sodium [Moles/Vol] Positive [place], [place] Comment on above: Test Performed by [facility], [address] [place] [id number] Sodium [Moles/Vol] O [place] Sodium [Moles/Vol] Negative [place] Comment on above: Test Performed by [facility], [address] [place] [id number] XR CHEST PORTABLEon 02-02-20 19 [facility], [facility] Incoming Radiology Results From [facility] - 02/01/2019 7:15 PM EDT Patient Name: RADAH SANDOVAL ---Diagnostic Radiology--- Exam Date/Time 02/01/2019 19:11:56 EDT Exam CR Chest Portable Ordering Physician MD CR, DUNCAN Accession Number [id number] CPT4 Codes 05050 () Reason For Exam TRAUMA, FALL Report [...] R Transcribed Date and Time: 02/01/2019 7:13 [place] Patient Name: RADHA SANDOVAL ---Diagnostic Radiology--- Exam Date/Time 02/01/2019 19:11:56 EDT Exam CR Chest Portable Ordering Physician MD HANKINS ALEKSANDAR Accession Number [id number] CPT4 Codes 74142 () Reason For Exam TRAUMA, FALL Report [...] Dictated: 02/01/2019 7:13 pm Dictating Physician: MD YONUG JOHN R Signed Date and Time: 02/01/2019 7:14 pm Signed by: MD YOUNG JOHN R Transcribed Date and Time: 02/01/2019 7:13 [place] XR PELVIS (1-2 VW)on 019 Patient Name: RADHA SANDOVAL ---Diagnostic Radiology--- Exam Date/Time 02/01/2019 19:11:56 EDT Exam CR Pelvis 1 or 2 Views Ordering Physician MD HANKINS ALEKSANDAR Accession Number [id number] CPT4 Codes 21178 () Reason For Exam TRAUMA, FALL Report [...] R Transcribed Date and Time: 02/01/2019 7:12 [place] [facility] Incoming Radiology Results From [facility] - 02/01/2019 7:14 PM EDT Patient Name: RADHA SANDOVAL ---Diagnostic Radiology--- Exam Date/Time 02/01/2019 19:11:56 EDT Exam CR Pelvis 1 or 2 Views Ordering Physician MD CR, DUNCAN Accession Number [id number] CPT4 Codes 05841 () Reason For Exam TRAUMA, FALL Report [...] R Transcribed Date and Time: 02/01/2019 7:12 [place] Vital Signs Date Time Vital Sign Value Performing Clinician Ryan goldberg 03-18-2023 11:02-0400 Body temperature 98.7 [degF] [facility] 03-18-2023 11:02-0400 Diastolic blood pressure 50 mm[Hg] [facility] 03-18-2023 11:02-0400 Heart rate 74 /min [facility] 03-18-2023 11:02-0400 Respiratory rate 18 /min [facility] 03-18-2023 11:02-0400 SaO2% (BldA) [Mass fraction] 96 % [facility] 03-18-2023 11:02-0400 Systolic blood pressure 142 mm[Hg] [facility] 03-15-2023 14:20-0400 Body height 170.18 cm [facility] 03-15-2023 14:20-0400 Body weight 113.21 kg [facility] 03-14-2023 09:34-0400 Body mass index (BMI) [Ratio] 39.1 kg/m2 [facility] 03-03-2023 07:40-0400 Body temperature 98.1 [degF] Alexander Whaley MD Work Phone: [facility] 03-03-2023 07:40-0400 Diastolic blood pressure 81 mm[Hg] Alexander Whaley MD Work Phone: [facility] 03-03-2023 07:40-0400 Heart rate 93 /min Alexander Whaley MD Work Phone: [facility] 03-03-2023 07:40-0400 Respiratory rate 16 /min Alexander Whaley MD Work Phone: [facility] 03-03-2023 07:40-0400 SaO2% (BldA) [Mass fraction] 94 % Alexander Whaley MD Work Phone: [facility] 03-03-2023 07:40-0400 Systolic blood pressure 154 mm[Hg] Alexander Whaley MD Work Phone: [facility] 02-27-2023 14:44-0400 Body mass index (BMI) [Ratio] 36.65 kg/m2 Katia Granados HEEL BOOM OPERATOR - CUSTOMER PROFESSIONAL Work Phone: [facility] [employer] 02-27-2023 14:44-0400 Body temperature 99.1 [degF] Katia Ronnyal HEEL BOOM OPERATOR - CUSTOMER PROFESSIONAL Work Phone: [facility] 02-27-2023 14:44-0400 Body weight 106.14 kg Katia Jeffersonal HEEL BOOM OPERATOR - CUSTOMER PROFESSIONAL Work Phone: [facility] 02-27-2023 14:44-0400 Diastolic blood pressure 72 mm[Hg] Katia Bridenthal HEEL BOOM OPERATOR - CUSTOMER PROFESSIONAL Work Phone: [employer] 02-27-2023 14:44-0400 Heart rate 93 /min Katia Bridenthal HEEL BOOM OPERATOR - CUSTOMER PROFESSIONAL Work Phone: [employer] [place] 02-27-2023 14:44-0400 Respiratory rate 20 /min Katia Bridenthal HEEL BOOM OPERATOR - CUSTOMER PROFESSIONAL Work Phone: [employer] [facility] 02-27-2023 14:44-0400 SaO2% (BldA) [Mass fraction] 92 % Katia Bridenthal HEEL BOOM OPERATOR - CUSTOMER PROFESSIONAL Work Phone: [facility] 02-27-2023 14:44-0400 Systolic blood pressure 136 mm[Hg] Katia Bridenthal HEEL BOOM OPERATOR - CUSTOMER PROFESSIONAL Work Phone: [facility] 02-15-2023 13:07-0400 Body height 170.2 cm Lenard Magallanes DO Work Phone: [employer] 02-15-2023 13:07-0400 Body mass index (BMI) [Ratio] 35.71 kg/m2 Lenard Magallanes DO Work Phone: [employer] 02-15-2023 13:07-0400 Body temperature 98.6 [degF] Lenard Magallanes DO Work Phone: [employer] 02-15-2023 13:07-0400 Body weight 103.42 kg Lenard Magallanes DO Work Phone: [employer] 02-15-2023 13:07-0400 Diastolic blood pressure 76 mm[Hg] Lenard Magallanes DO Work Phone: [employer] 02-15-2023 13:07-0400 Heart rate 75 /min Lenard Magallanes DO Work Phone: [employer] 02-15-2023 13:07-0400 Respiratory rate 20 /min Lenard Magallanes DO Work Phone: [facility] 02-15-2023 13:07-0400 Systolic blood pressure 141 mm[Hg] Lenard Magallanes DO Work Phone: [facility] 02-07-2023 11:18-0400 Diastolic blood pressure 72 mm[Hg] Katia Bridenthal HEEL BOOM OPERATOR - CUSTOMER PROFESSIONAL Work Phone: [facility] 02-07-2023 11:18-0400 Systolic blood pressure 146 mm[Hg] Katia Bridenthal HEEL BOOM OPERATOR - CUSTOMER PROFESSIONAL Work Phone: [facility] 02-07-2023 10:39-0400 Body mass index (BMI) [Ratio] 40.34 kg/m2 Katia Bridenthal HEEL BOOM OPERATOR - CUSTOMER PROFESSIONAL Work Phone: [facility] 02-07-2023 10:39-0400 Body temperature 97.3 [degF] Katia Bridenthal HEEL BOOM OPERATOR - CUSTOMER PROFESSIONAL Work Phone: [facility] 02-07-2023 10:39-0400 Body weight 109.95 kg Katia Bridenthal HEEL BOOM OPERATOR - CUSTOMER PROFESSIONAL Work Phone: [facility] 02-07-2023 10:39-0400 Heart rate 88 /min Katia Bridenthal HEEL BOOM OPERATOR - CUSTOMER PROFESSIONAL Work Phone: [facility] 02-07-2023 10:39-0400 Respiratory rate 20 /min Katia Bridenthal HEEL BOOM OPERATOR - CUSTOMER PROFESSIONAL Work Phone: [facility] 02-07-2023 10:39-0400 SaO2% (BldA) [Mass fraction] 96 % Katia Bridenthal HEEL BOOM OPERATOR - CUSTOMER PROFESSIONAL Work Phone: [employer] 12-07-2022 10:03-0400 Diastolic blood pressure 80 mm[Hg] Anusha Velarde MD Work Phone: [facility] 12-07-2022 10:03-0400 Heart rate 72 /min Anusha Velarde MD Work Phone: [employer] [place] 12-07-2022 10:03-0400 Respiratory rate 18 /min Anusha Velarde MD Work Phone: [employer] [place] 12-07-2022 10:03-0400 SaO2% (BldA) [Mass fraction] 96 % Anusha Velarde MD Work Phone: [employer] [facility] 12-07-2022 10:03-0400 Systolic blood pressure 162 mm[Hg] Anusha Velarde MD Work Phone: [employer] [facility] 12-07-2022 09:50-0400 Body temperature 97.2 [degF] Anusha Velarde MD Work Phone: [employer] [facility] 12-07-2022 08:49-0400 Body height 165.1 cm Anusha Velarde MD Work Phone: [employer] [facility] 12-07-2022 08:49-0400 Body mass index (BMI) [Ratio] 41.6 kg/m2 Anusha Velarde MD Work Phone: [employer] [facility] 12-07-2022 08:49-0400 Body weight 113.4 kg Anusha Velarde MD Work Phone: [employer] [facility] 06-30-2022 08:47-0500 Diastolic blood pressure 62 mm[Hg] Shiv Lopez MD Work Phone: [employer] [facility] 06-30-2022 08:47-0500 Heart rate 80 /min Shiv Lopez MD Work Phone: [employer] [place] 06-30-2022 08:47-0500 Systolic blood pressure 125 mm[Hg] Shiv Lopez MD Work Phone: [employer] [facility] 06-30-2022 08:16-0500 Body height 165.7 cm Shiv Lopez MD Work Phone: [employer] [place] 06-30-2022 08:16-0500 Body mass index (BMI) [Ratio] 39.96 kg/m2 Shiv Lopez MD Work Phone: [employer] [facility] 06-30-2022 08:16-0500 Body weight 109.77 kg Shiv Lopez MD Work Phone: [facility] Health Encounters Encounter Date Encounter Type Care Provider Facility Start: 04-22-2025 ambulatory Melissa Genekasia JAY Facili ty:[facility] Start: 04-10-2025 ambulatory Melissa Genekasia OLS Facili ty:[facility] Start: 04-08-2025 ambulatory Dong Schwartz OLS Facil ity:[facility] Start: 04-03-2025 ambulatory Dong Schwartz OLS Facil ity:[facility] Start: 03-26-2025 End: 03-26-2025 ambulatory Melissa Genedla OLS Facility:[facility] Start: 03-20-[address] Melissa Reed MD -[facility] Work Phone: Start: 03-20-2025 End: 03-20-2025 ambulatory Melissabernadine Vallecilloa OLS Facility:[facility] Start: 03-14-[address] Melissa Reed MD -[facility] Work Phone: Start: 03-14-2025 End: 03-14-2025 ambulatory Melissabernadine Vallecilloa OLS Facility:[facility] Start: 03-10-[address] Melissa Reed MD -[facility] Work Phone: Start: 03-10-2025 End: 03-10-2025 ambulatory Melissabernadine Vallecilloa OLS Facility:[facility] Start: 03-06-[address] Melissa Reed MD -[facility] Work Phone: Start: 03-06-2025 End: 03-06-2025 ambulatory Melissabernadine Vallecilloa OLS Facility:[facility] Start: 02-20-[address] Melissa Reed MD -[facility] [employer] Work Phone: Start: 02-20-2025 End: 02-20-2025 ambulatory Melisasbridgette Vallecilloa OLS Facility:[facility] Start: 02-06-2025 ambulatory Melissabernadine Vallecilloa JAY Facili ty:[facility] Start: 02-06-[address] Melissa Reed MD -[facility] Work Phone: Start: 01-23-2025 ambulatory Melissa Bar ty:[facility] Start: 01-23-[address] Melissa Reed MD -[facility] Work Phone: Start: 01-09-[address] Melissa Reed MD -[facility] Work Phone: Start: 01-09-2025 End: 01-09-2025 ambulatory Melissa Reed Facility:[facility] Start: 12-26-2024 ambulatory Melissa Reed Facility:[facility] Start: 12-26-[address] Melissa Reed MD -[facility] Work Phone: Start: 12-24-2024 ambulatory Melissa Reed Facility:[facility] Start: 12-24-[address] Melissa Reed MD -[facility] Work Phone: Start: 12-17-2024 Non-patient / Non-visit Dr. Princess stafford MD -[facility] Work Phone: Start: 12-12-2024 End: 12-12-[address] Melissa Reed MD -[facility] Start: 12-12-2024 End: 12-12-[address] Melissa Reed MD -[facility] Work Phone: Start: 12-12-2024 End: 12-12-2024 ambulatory Melissa Reed Facility:[facility] Start: 11-28-2024 End: 11-28-[address] Melissa Reed MD [facility] Work Phone: Start: 11-28-2024 End: 11-28-[address] Melissa Reed MD -[facility] Work Phone: Start: 11-28-[address] Melissa Reed MD -[facility] Work Phone: Start: 11-28-2024 End: 11-28-2024 ambulatory Melissa Gudla Facility:[facility] Start: 11-14-[address] Melissa Reed MD -[facility] Work Phone: Start: 11-14-2024 End: 11-14-2024 ambulatory Melissa Gudla Facility:[facility] Start: 11-08-2024 End: 11-08-[address] Melissa Reed MD [facility] Work Phone: Start: 11-08-2024 End: 11-08-[address] Melissa Reed MD -[facility] Work Phone: Start: 11-08-2024 End: 11-08-2024 ambulatory Melissa Gudla Facility:[facility] Start: 10-17-2024 End: 10-17-[address] Melissa Reed MD -[facility] Work Phone: Start: 10-17-2024 End: 10-17-2024 ambulatory Melissa Gudla Facility:[facility] Start: 10-03-2024 End: 10-03-[address] Shiv Lopez MD Work Phone: [facility] Work Phone: Start: 10-03-2024 End: 10-03-[address] Melissa Reed MD -[facility] Work Phone: Start: 10-03-2024 End: 10-03-2024 ambulatory Melissa Gudla Facility:[facility] Start: 09-23-2024 ambulatory Melissa Gudla Facility:[facility] Start: 09-23-[address] Melissa Reed MD -[facility] Work Phone: Start: 09-19-2024 End: 09-19-[address] Shiv Lopez MD Work Phone: [facility] Work Phone: Start: 09-19-2024 End: 09-19-[address] Melissa Reed MD -[facility] Work Phone: Start: 09-19-[address] Melissa Reed MD -[facility] Work Phone: Start: 09-19-2024 End: 09-19-2024 ambulatory [facility] Facility:[facility] Start: 09-05-2024 End: 09-05-[address] Shiv Lopez MD Work Phone: [facility] Work Phone: Start: 09-05-2024 End: 09-05-[address] Melissa Reed MD -[facility] Work Phone: Start: 09-05-[address] Melissa Reed MD -[facility] Work Phone: Start: 09-05-2024 End: 09-05-2024 ambulatory [facility] Facility:[facility] Start: 08-22-2024 End: 08-22-[address] Shiv Lopez MD Work Phone: [facility] Work Phone: Start: 08-22-2024 End: 08-22-[address] Melissa Reed MD -[facility] Work Phone: Start: 08-22-2024 End: 08-22-2024 ambulatory [facility] Facility:[facility] Start: 08-08-2024 ambulatory Melissa Gudla Facility:[facility] Start: 08-08-[address] Melissa Reed MD -[facility] Start: 08-06-2024 ambulatory Melissa Reed Facility:[facility] Start: 08-06-[address] Melissa Reed MD -[facility] Work Phone: Start: 07-31-2024 End: 07-31-[address] Gypsy Argueta MD -Radiology, [facility] Work Phone: Start: 07-31-2024 End: 07-31-2024 ambulatory Gypsy Argueta Facility:[facility] Start: 07-25-2024 ambulatory [facility] Facility :[facility] Start: 07-25-[address] Melissa Reed MD -[facility] Work Phone: Start: 07-11-2024 ambulatory [facility] Facility :[facility] Start: 07-11-[address] Melissa Reed MD -[facility] Work Phone: Start: 06-27-2024 End: 06-27-[address] Melissa Reed MD -[facility] Work Phone: Start: 06-27-2024 End: 06-27-2024 ambulatory [facility] Facility:[facility] Start: 06-13-2024 ambulatory [facility] Facility :[facility] Start: 06-13-[address] Melissa Reed MD -[facility] Work Phone: Start: 05-29-2024 End: 05-29-[address] Melissa Reed MD -[facility] [employer] Work Phone: Start: 05-29-2024 End: 05-29-2024 ambulatory [facility] Facility:[facility] Start: 05-15-2024 End: 05-15-2024 ambulatory [facility] Facility:[facility] Start: 05-01-2024 End: 05-01-2024 ambulatory [facility] Facility:[facility] Start: 12-29-2023 End: 12-29-2023 ambulatory Felicia Garcia [facility] Start: 09-29-2023 End: 09-29-2023 ambulatory [facility] Work Phone: Start: 09-29-2023 End: 09-29-2023 [place]arted [place] [facility] [place]: Start: 09-14-2023 End: 09-14-2023 ambulatory [facility] Work Phone: Start: 09-14-2023 End: 09-14-2023 [place]ed [place] [facility] [place]: Start: 08-31-2023 End: 08-31-2023 ambulatory [facility] Work Phone: Start: 08-31-2023 End: 08-31-2023 [place]ed [place] [facility] [place]: Start: 08-17-2023 End: 08-17-2023 ambulatory [facility] Work Phone: Start: 08-17-2023 End: 08-17-2023 [place]ed [place] [facility] [place]: Start: 08-14-2023 End: 08-14-2023 [place]ed [place] [facility] [place]: Start: 07-31-2023 End: 07-31-2023 [place]ed [place] [facility] [place]: Start: 07-17-2023 End: 07-17-2023 [place]ed [place] [facility] [place]: Start: 07-03-2023 End: 07-03-2023 [place]ed [place] [facility] [place]: Start: 07-03-2023 Registered Referred [facility] Work Phone: Start: 06-23-2023 End: 06-23-2023 ambulatory [facility] Work Phone: Start: 06-23-2023 End: 06-23-2023 Departed Referred [facility] Start: 06-20-2023 End: 06-20-2023 ambulatory [facility] Work Phone: Start: 06-20-2023 End: 06-20-2023 [place]ed [place] [facility] [place]: Start: 06-20-2023 Registered Referred [facility] Work Phone: Start: 05-10-2023 End: 05-10-2023 ambulatory [facility] Work Phone: Start: 05-10-2023 End: 05-10-2023 Departed Referred [facility] Start: 05-10-2023 Registered Referred [facility] Start: 05-01-2023 End: 05-01-2023 ambulatory [facility] Work Phone: Start: 05-01-2023 End: 05-01-2023 Departed Referred [facility] Start: 04-04-2023 End: 04-04-2023 ambulatory [facility] Work Phone: Start: 04-04-2023 End: 04-04-2023 Departed Referred [facility] Start: 03-20-2023 End: 03-20-2023 Departed Referred [facility] Start: 03-03-2023 End: 03-18-2023 Evaluation and management of inpatient [facility] Start: 02-28-2023 End: 03-03-2023 ambulatory [facility] Start: 02-28-2023 Patient encounter procedure Imelda Vaughn Clinical Communication Start: 02-28-2023 End: 03-03-2023 Emergency department patient visit Alexander Whaley MD Work Phone: [facility] 1E MED SURG Comment on above: LING (acute kidney in jury) ([facility]/HCC) (HCC) (Primary Dx); Pyelonephritis; Polypharmacy; Insomnia, unspecified type; Pressure ulcer of right buttock, stage [address]) Start: 02-27-2023 End: 02-27-2023 ambulatory SHIV LOPEZ [facility] Start: 02-27-2023 End: 02-27-2023 Office outpatient visit 25 minutes Katiajareth Granados HEEL BOOM OPERATOR - CUSTOMER PROFESSIONAL Work Phone: [facility] Comment on above: Diabetes mellitus du e to underlying condition with stage 3 chronic kidney disease, with long-term current use of insulin, unspecified whether stage 3a or 3b CKD ([facility]) (Primary Dx); Urinary tract infection symptoms; Primary hypertension; Hypokalemia; Acquired hypothyroidism; History of GI bleed; Acute cystitis with hematuria; Wound of right buttock, subsequent encounter; Chronic renal impairment, stage 3b ([facility]); Diarrhea, unspecified type Start: 02-23-2023 ambulatory [facility] Start: 02-23-2023 Patient encounter procedure [facility] Start: 02-15-2023 End: 02-15-2023 Subsequent hospital visit by physician Lenard Magallanes DO Work Phone: [facility] Comment on above: Arrived Start: 02-15-2023 End: 02-15-2023 ambulatory LENARD MAGALLANES [facility] Start: 02-07-2023 End: 02-07-2023 Office outpatient visit 15 minutes Katiaesther Granados HEEL BOOM OPERATOR - CUSTOMER PROFESSIONAL Work Phone: [facility] Comment on above: Wound of right butto ck, subsequent encounter (Primary Dx); Chronic left shoulder pain Start: 02-07-2023 End: 02-07-2023 ambulatory SHIV LOPEZ [facility] Start: 01-25-2023 ambulatory Colette Poole RN [facility] Clinical Communication Start: 01-25-2023 Patient encounter procedure Colette Poole RN [facility] Clinical Communication Start: 01-12-2023 Refill Katia Kylah ley HEEL BOOM OPERATOR - CUSTOMER PROFESSIONAL Work Phone: [facility] Comment on above: Vitamin D deficiency ; Acquired hypothyroidism; Chronic left shoulder pain; Restless legs syndrome (RLS) Start: 12-08-2022 Refill Katia ley HEEL BOOM OPERATOR - CUSTOMER PROFESSIONAL Work Phone: [facility] Comment on above: Hyperlipidemia with target LDL less than 70; Acquired hypothyroidism; Chronic left shoulder pain Start: 12-05-2022 ambulatory Sruthi Burns RN [facility] Clinical Communication Start: 12-05-2022 Patient encounter procedure Sruthi Burns RN [facility] Clinical Communication Start: 12-05-2022 End: 12-07-2022 Emergency department patient visit Anusha Velarde MD Work Phone: [facility] MED SURG Comment on above: Acute lower GI bleed ing (Primary Dx); Rectal bleeding Start: 10-05-2022 Telephone encounter Shiv Jmaes MD Work Phone: [facility] Comment on above: Results Start: 08-12-2022 Refill Shiv Lopez MD Work Phone: [facility] Clinical Communication Start: 07-26-2022 Refill Shiv Lopez MD Work Phone: [facility] Start: 07-18-2022 Refill Katia ley HEEL BOOM OPERATOR - CUSTOMER PROFESSIONAL Work Phone: [facility] Comment on above: Vitamin D deficiency Start: 07-11-2022 Refill Shiv Lopez MD Work Phone: [facility] Start: 07-08-2022 ambulatory Christine Haas RN [facility] Clin ical Communication Start: 07-08-2022 Patient encounter procedure Christine Haas RN [facility] Clinical Communication Comment on above: Trauma (Primary Dx) Start: 07-07-2022 Telephone encounter Devendra ramos MD Work Phone: [facility] Comment on above: Reschedule (07/08/22 ) Start: 06-30-2022 End: 06-30-2022 Office outpatient visit 25 minutes Shiv Lopez MD Work Phone: [facility] Comment on above: Uncontrolled type [...] by physician Shiv Lopez MD Work Phone: [facility] Radiology Comment on above: Dyspnea on exertion Start: 08-25-2021 End: 08-25-2021 Subsequent hospital visit by physician Sommer Chatterjee DPM Work Phone: [facility] Start: 11-05-2020 End: 11-05-2020 Subsequent hospital visit by physician Shiv Lopez MD Work Phone: [facility] Start: 10-07-2020 End: 10-07-2020 Subsequent hospital visit by physician Shiv Lopez MD Work Phone: [facility] Comment on above: Localized edema Start: 09-29-2020 End: 09-29-2020 Subsequent hospital visit by physician Shiv Lopez Work Phone: [facility] Start: 09-08-2020 End: 09-08-2020 Subsequent hospital visit by physician Shiv Lopez Work Phone: [facility] Start: 09-01-2020 End: 09-01-2020 Subsequent hospital visit by physician Roseanne Roberts Work Phone: [facility] Start: 08-18-2020 End: 08-18-2020 Subsequent hospital visit by physician Shiv Lopez Work Phone: [facility] Start: 07-31-2020 End: 07-31-2020 Subsequent hospital visit by physician Shiv Lopez [facility] Start: 02-01-2019 End: 02-01-2019 Emergency department patient visit Dick Ace Work Phone: [facility] Emergency Dept Comment on above: Injury of head, init ial encounter (Primary Dx); Laceration of scalp, initial encounter; Strain of neck muscle, initial encounter Start: 01-18-2019 End: 01-18-2019 Subsequent hospital visit by physician Darya Berrios Work Phone: [facility] Laboratory Start: 12-21-2016 Ambulatory Shiv Lopez [facility] Procedures Date Procedure Procedure [...] et rgnt non-auto w/o micrscp Katia Bridenthal HEEL BOOM OPERATOR - CUSTOMER PROFESSIONAL Work Phone: Start: 02-27-2023 Glucose [Mass/volume ] in Serum or Plasma Katia Bridenthal HEEL BOOM OPERATOR - CUSTOMER PROFESSIONAL Work Phone: Start: 02-27-2023 Thyrotropin [Units/v olume] in Serum or Plasma Imelad Mann RN Start: 12-07-2022 Comprehensive metabo lic [...] 02-01-2019 Radiologic exam ches t single view [employer] Work Phone: Start: 02-01-2019 Radiologic examinati on pelvis 1/2 views [employer] Work Phone: Start: 02-01-2019 Ct cervical spine w/ o contrast material [employer] Work Phone: Start: 02-01-2019 Ct head/brain w/o co ntrast material [employer] Work Phone: Start: 02-01-2019 Blood typing serologic abo [employer] Work Phone: Start: 02-01-2019 Assay of ethanol [employer] Work Phone: Start: 02-01-2019 Basic metabolic pane l calcium total [employer] Work Phone: Start: 02-01-2019 Blood count complete automated [employer] Work Phone: Start: 02-01-2019 PROTIME/INR & PTT Yobany bert [employer] Work Phone: Plan of Treatment Date Care Activity Detail Author Start: 09-23-2024 Urine culture Urine Culture [facility] Start: 09-23-2024 [facility] Start: 09-05-2024 Urine culture Urine Culture [facility] Start: 09-05-2024 [facility] Start: 02-28-2024 Thyroid stimulating hormone measurement TSH Level [facility] Start: 02-18-2024 Influenza vaccination Influenza Vacc ine (#1) [facility] Start: 02-08-2024 COVID-19 Vaccine (3 - Booster for Brian series) COVID-19 Vaccine (3 - Booster for Brian series) [facility] Comment on above: Postponed from 06/21 (Patient Refused) Start: 02-08-2024 DTaP/Tdap/Td Vaccine s (1 - Tdap) DTaP/Tdap/Td Vaccines (1 - Tdap) [facility] Comment on above: Postponed from 08/27 (Patient Refused) Start: 02-08-2024 Hepatitis C screening Hepatitis C Sc [facility] Comment on above: Postponed from 08/27 (Patient Refused) Start: 02-08-2024 Zoster Vaccines (2 o f 2) Zoster Vaccines (2 of 2) [facility] Comment on above: Postponed from 05/26 (Patient Refused) Start: 08-10-2023 Depression Monitoring Depression Mon itoring [facility] Start: 08-10-2023 [facility] Start: 06-30-2023 Lipid panel Lipid Panel [facility] Start: 06-30-2023 Thyroid stimulating hormone measurement TSH Level [facility] Start: 06-30-2023 Urine screening for protein Diabetes: Urine Protein Screening [facility] Start: 06-19-2023 Medicare Advantage Annual Wellness Visit Medicare Advantage Annual Wellness Visit [facility] Start: 06-14-2023 Depresssion Monitoring [facility] Start: 04-27-2023 End: 04-27-2023 Patient encounter procedure [facility] Medical [facility] Start: 04-27-2023 Depresssion Monitoring [facility]sion [facility] Start: 04-08-2023 Blood chemistry [facility] Start: 04-01-2023 Blood chemistry [facility] Start: 03-25-2023 Blood chemistry [facility] Start: 03-20-2023 SARS-CoV-2 (COVID-19 ) Ag [Presence] in Respiratory specimen by Rapid immunoassay [facility] Start: 03-19-2023 Development of care plan [facility] Start: 03-18-2023 Patient discharge [facility] Start: 03-17-2023 End: 03-17-2023 [facility] Start: 03-17-2023 Microbial culture, routine Wound Culture [facility] Start: 03-17-2023 Bacterial nucleic ac id assay [facility] Start: 03-13-2023 [facility] Start: 03-06-2023 Referral to it business process architect [facility] Start: 03-04-2023 Development of care plan [facility] Start: 03-03-2023 Admission procedure [facility] Start: 03-03-2023 Measuring intake and output [facility] Start: 03-03-2023 Patient referral to dietitian [facility] Start: 03-03-2023 Referral to occupational therapist [facility] Start: 03-03-2023 Referral to service [facility] Start: 03-03-2023 Vital signs measurements [facility] Start: 03-03-2023 [facility] Start: 03-03-2023 Verification routine [facility] Start: 03-03-2023 End: 03-03-2023 Patient encounter procedure [facility] Start: 03-03-2023 Patient referral to dietitian [facility] Start: 02-27-2023 End: 02-28-2024 Bacteria identified in Urine by Culture Urine culture (clean catch) Microbiology Routine Urinary tract infection symptoms Expected: 02/27/2023 (Approximate), Expires: 02/28/2024 [facility] Comment on above: Expected: 02/27/2023 (Approximate), Expires: 02/28/2024 Start: 02-27-2023 End: 02-28-2024 CBC W Auto Differential panel - Blood CBC auto differential Lab Routine History of GI bleed Expected: 02/27/2023 (Approximate), Expires: 02/28/2024 [facility] Comment on above: Expected: 02/27/2023 (Approximate), Expires: 02/28/2024 Start: 02-27-2023 End: 02-28-2024 Comprehensive metabolic 1998 panel - Serum or Plasma Comprehensive metabolic panel Lab Routine 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, with long-term current use of insulin, unspecified whether stage 3a or 3b CKD (HCC) Primary hypertension Hypokalemia Expected: 02/27/2023 (Approximate), Expires: 02/28/2024 [facility] Work Phone: Comment on above: Expected: 02/27/2023 (Approximate), Expires: 02/28/2024 Start: 02-27-2023 End: 02-28-2024 Magnesium [Mass/volume] in Serum or Plasma Magnesium Lab Routine 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, with long-term current use of insulin, unspecified whether stage 3a or 3b CKD (HCC) Hypokalemia Expected: 02/27/2023 (Approximate), Expires: 02/28/2024 [facility] Comment on above: Expected: 02/27/2023 (Approximate), Expires: 02/28/2024 Start: 02-27-2023 End: 02-28-2024 Thyrotropin [Units/volume] in Serum or Plasma TSH Lab Routine Acquired hypothyroidism Expected: 02/27/2023 (Approximate), Expires: 02/28/2024 [facility] Comment on above: Expected: 02/27/2023 (Approximate), Expires: 02/28/2024 Start: 02-27-2023 End: 02-27-2023 Patient encounter procedure 02/27/2023 1:00 PM EDT Office Visit [facility] [address] [place] [id number] Carolina Connolly HEEL BOOM OPERATOR - CUSTOMER PROFESSIONAL [address] [facility] [address] [place], [place] [id number] [facility] Start: 02-24-2023 End: 02-24-2023 Patient encounter procedure 02/24/2023 11:20 AM EDT Office Visit [facility] [address] [facility] [place] [address] [place] [address] Katia Granados, HEEL BOOM OPERATOR - CUSTOMER PROFESSIONAL [address] [facility] [address] [place], [place] [id number] [facility] Start: 02-22-2023 End: 02-22-2023 Patient encounter procedure 02/22/2023 2:[address] [facility] [address] [place] [address] Lenard Magallanes, [address] [place] [address] [facility] Start: 02-17-2023 COVID-19 Vaccine ( season) COVID-19 Vaccine ( season) [facility] Start: 02-17-2023 Influenza vaccination Influenza Vacc ine (#1) [facility] Start: 02-14-2023 End: 02-14-2023 Patient encounter procedure 02/14/2023 10:20 AM EDT Office [place] [address] [place] [address] Katia Granados, HEEL BOOM OPERATOR - JORGE [address] [facility] [facility] [place] [id number] [facility] Start: 02-01-2023 End: 02-01-2023 Patient encounter procedure 02/01/2023 2:15 PM EDT Office [place] [address] [place] [address] Shiv Lopez MD [address] [place], [place] [address] [address] [facility] Start: 01-25-2023 End: 01-25-2023 Patient encounter procedure 01/25/2023 3:00 PM EDT Office Visit [address] [place] [address] Shiv Lopez MD [address] [place], [place] [address] [address] [facility] Start: 01-03-2023 Hemoglobin A1c measurement Diabetes: Hemoglobin A1C [facility] Start: 10-25-2022 End: 10-25-2022 Patient encounter procedure 10/25/2022 Office Visit Family Medicine Shiv Lopez MD [address] [facility] – [place] [address] [facility] Start: 09-29-2022 End: 09-29-2022 Patient encounter procedure 09/29/2022 Office Visit Family Medicine Shiv Lopez MD [address], [place] [address] [facility] Start: 09-28-2022 Hemoglobin A1c measurement Diabetes: Hemoglobin A1C [facility] Start: 09-09-2022 Creatinine measurement Creatinine mo nitoring [facility] Start: 09-09-2022 Potassium monitoring Potassium monit oring [facility] Start: 09-09-2022 Thyroid stimulating hormone measurement TSH testing [facility] Start: 08-05-2022 Creatinine measurement Creatinine mo nitoring [facility] Start: 08-05-2022 Potassium monitoring Potassium monit oring [facility] Start: 07-08-2022 Depression Monitoring Depression Mon itoring [facility] Start: 06-30-2022 End: 06-30-2023 25-hydroxyvitamin D3 [Mass/volume] in Serum or Plasma Vitamin D 25 hydroxy Lab Routine Vitamin D deficiency Expected: 06/30/2022 (Approximate), Expires: 06/30/2023 [facility] Work Phone: Comment on above: Expected: 06/30/2022 (Approximate), Expires: 06/30/2023 Start: 06-30-2022 End: 06-30-2023 Comprehensive metabolic 1998 panel - Serum or Plasma Comprehensive metabolic panel Lab Routine Uncontrolled type 2 diabetes mellitus with hyperglycemia (HCC) Expected: 06/30/2022 (Approximate), Expires: 06/30/2023 [facility] Comment on above: Expected: 06/30/2022 (Approximate), Expires: 06/30/2023 Start: 06-30-2022 End: 06-30-2023 Hemoglobin A1c/Hemoglobin.total in Blood Hemoglobin A1c Lab Routine Uncontrolled type 2 diabetes mellitus with hyperglycemia (HCC) Expected: 06/30/2022 (Approximate), Expires: 06/30/2023 [facility] Comment on above: Expected: 06/30/2022 (Approximate), Expires: 06/30/2023 Start: 06-30-2022 End: 06-30-2023 Lipid 1996 panel - Serum or Plasma Lipid panel Lab Routine Hyperlipidemia with target LDL less than 70 Expected: 06/30/2022 (Approximate), Expires: 06/30/2023 [facility] Comment on above: Expected: 06/30/2022 (Approximate), Expires: 06/30/2023 Start: 06-30-2022 End: 06-30-2023 Microalbumin/Creatinine panel in random Urine Microalbumin / creatinine urine ratio Lab Routine Uncontrolled type 2 diabetes mellitus with hyperglycemia (HCC) Expected: 06/30/2022 (Approximate), Expires: 06/30/2023 [facility] Comment on above: Expected: 06/30/2022 (Approximate), Expires: 06/30/2023 Start: 06-30-2022 End: 06-30-2023 Thyrotropin [Units/volume] in Serum or Plasma TSH Lab Routine Acquired hypothyroidism Expected: 06/30/2022 (Approximate), Expires: 06/30/2023 [facility] Comment on above: Expected: 06/30/2022 (Approximate), Expires: 06/30/2023 Start: 06-22-2022 Lipid panel [facility] Start: 03-31-2022 Pneumococcal Vaccine : 65+ Years (2 - PCV) Pneumococcal Vaccine: 65+ Years (2 - PCV) [facility] Start: 02-28-2022 End: 02-28-2022 Patient encounter procedure 02/28/2022 Office Visit Family Medicine Shiv Lopez MD [address] [place] [address], [place] [address] [facility] Start: 02-17-2022 Annual Wellness Visi t (AWV) Annual Wellness Visit (AWV) [facility] Start: 02-16-2022 Hepatitis C screening Hepatitis C sc reen [facility] Comment on above: Postponed from 08/27 (Patient Refused) Start: 02-16-2022 Thyroid stimulating hormone measurement TSH testing [facility] Start: 11-02-2021 Hemoglobin A1c measurement Diabetes: Hemoglobin A1C [facility] Start: 10-01-2021 Creatinine measurement Creatinine mo nitoring [facility] Work Phone: Start: 10-01-2021 Potassium monitoring Potassium monit oring [facility] Work Phone: Start: 09-13-2021 End: 09-13-2021 Patient encounter procedure 09/13/2021 Office Visit Family Shiv Freed MD [address], [place] [address] [facility] Start: 09-02-2021 End: 09-02-2021 Patient encounter procedure 09/02/2021 Office Visit [facility] Shiv Freed MD [address], [facility] [place] [address] [facility] Start: 06-24-2021 Thyroid stimulating hormone measurement TSH testing [facility] Work Phone: Start: 06-24-2021 TSH Qn TSH testing [facility] Work Phone: Start: 06-21-2021 COVID-19 Vaccine (3 - Booster for Brian series) COVID-19 Vaccine (3 - Booster for Brian series) [facility] Start: 05-26-2021 Shingles Vaccine (2 of 2) Shingles Vaccine (2 of 2) [facility] Start: 05-26-2021 Zoster Vaccines (2 o f 2) Zoster Vaccines (2 of 2) [facility] Start: 04-20-2021 Creatinine measurement [facility] mo [facility]itoring [facility] Work Phone: Start: 04-20-2021 Potassium monitoring Potassium monit oring [facility] Work Phone: Start: 01-15-2021 Screening for osteoporosis DEXA (modify frequency per FRAX score) [employer] Work Phone: Comment on above: Postponed from 08/27 (Patient Refused) Start: 01-07-2021 Urine screening for protein Diabetes: Urine Protein Screening [facility] Start: 10-12-2020 End: 10-12-2020 Patient encounter procedure 10/12/2020 Office Visit Shiv Leach MD [address] [facility], [facility] [address] [facility] [place] [address] [phone] [facility] Start: 10-08-2020 End: 10-08-2020 Patient encounter procedure 10/08/2020 Office Visit Family Shiv Freed MD [address] [facility], [facility] [address] [facility] [place] [address] [phone] Canceled (Patient) [facility] Comment on above: Canceled (Patient) Start: 10-01-2020 End: 10-01-2020 Office Visit 10/01/2020 Office Visit Family Shiv Freed MD [address] [place] [address] [address] [facility] [place] [address] [phone] [facility] Start: 06-03-2020 Lipid panel Lipid screen [facility] Work Phone: Start: 01-21-2020 A1C test (Diabetic o r Prediabetic) A1C test (Diabetic or Prediabetic) [place], [place] Start: 01-19-2020 TSH testing TSH testing [place], [place] Start: 06-07-2019 DTaP/Tdap/Td vaccine (1 - Tdap) DTaP/Tdap/Td vaccine (1 - Tdap) [place], [place] Comment on above: Postponed from 08/27 (Patient Refused) Start: 05-23-2019 Diabetic retinal exam Diabetic retin al exam [place], [place] Start: 04-12-2019 Lipid screen Lipid screen [place], [place] Start: 02-17-2019 Influenza vaccination Flu vaccine (# 1) [place], [place] Start: 12-05-2018 Annual Wellness Visi t (AWV) Annual Wellness Visit (AWV) [facility] Work Phone: Start: 10-06-2017 [object Object] Diabetic foot exam [place], [place] Start: 10-06-2017 Annual Wellness Visi t (AWV) Annual Wellness Visit (AWV) [place], [place] Start: 03-09-2013 Pneumococcal 65+ yea rs Vaccine (2 of 2 - PCV13) Pneumococcal 65+ years Vaccine (2 of 2 - PCV13) [place] Start: 08-27-2008 DEXA (modify frequen cy per FRAX score) DEXA (modify frequency per FRAX score) [place] Start: 08-27-2008 Pneumococcal 65+ yea rs Vaccine (1 of 2 - PCV13) Pneumococcal 65+ years Vaccine (1 of 2 - PCV13) [place] Start: 2003 RSV Immunization age d 60 or older (1 - 1-dose 60+ series) RSV Immunization aged 60 or older (1 - 1-dose 60+ series) [facility] Start: 08-27-1993 Colon cancer screen colonoscopy Colon cancer screen colonoscopy [place], [place] Start: 08-27-1993 Shingles Vaccine (1 of 2) Shingles Vaccine (1 of 2) [place] Start: 08-27-1962 DTaP/Tdap/Td vaccine (1 - Tdap) DTaP/Tdap/Td vaccine (1 - Tdap) [facility] Start: 08-27-1962 DTaP/Tdap/Td Vaccine s (1 - Tdap) DTaP/Tdap/Td Vaccines (1 - Tdap) [facility] Start: 08-27-1961 Hepatitis C screening Hepatitis C Sc reening [facility] Start: 1959 COVID-19 Vaccine (1 of 2) COVID-19 Vaccine (1 of 2) [facility] Work Phone: Start: 1959 COVID-19 Vaccine (1) COVID-19 Vaccin e (1) [facility] Work Phone: Start: 08-27-1953 Diabetic foot examination Diabetes: Foot Exam [facility] Start: 08-27-1953 Glaucoma screening Diabetes: R etinopathy Screening [facility] Start: 08-27-1953 Preventive dental service Diabetes: Dental Exam [facility] Start: 1945 Hepatitis B Vaccines (1 of 3 - 3-dose series) Hepatitis B Vaccines (1 of 3 - 3-dose series) [facility] Start: 1945 Hepatitis C screening Hepatitis C sc reen [facility] Work Phone: Start: 1945 Thyroid stimulating hormone measurement TSH Level [facility] Dressing Order: Xeroform; Daily; Silicone foam borders (multiple sizes) Dressing Order: Xeroform; Daily; Silicone foam borders (multiple sizes) Wound Ostomy Routine Ordered: 02/15/2023 [facility] Work Phone: Comment on above: Ordered: 02/15/2023 EKG 12 Lead EKG 12 Lead ECG Routine 02/01/2019 7:40 PM EDT [facility], [place] Patient referral [facility] Work Phone: Tissue exam [facility] Work Phone: Comment on above: Release Upon Orderin g for 1 Occurrences starting 12/07/2022, 1 completed Immunizations Immunization Date Immunization Notes Care Provider [facility] 03-17-2023 Influenza High-Dose Quadrivalent [facility] 03-17-2023 influenza virus vacc ine, unspecified formulation Felicia Garcia [facility] 03-01-2023 Influenza Vac A&B SA Adj quadrivalent (Fluad) vaccine 0.5 mL Alexander Whaley MD Work Phone: [facility] 04-26-2022 influenza, high dose seasonal, preservative-free Shiv Lopez MD Work Phone: [facility] 04-26-2022 Pneumococcal Conjuga te PCV20, Pf (Prevnar 20) Shiv Lopez MD Work Phone: [facility] 04-26-2022 influenza virus vacc ine, unspecified formulation Katia Granados [employer] OPERATOR - CUSTOMER PROFESSIONAL Work Phone: [facility] 04-26-2021 COVID-19, Moderna, Primary or Immunocompromised, PF, 100mcg/0.5mL Sommer Chatterjee DPM Work Phone: [facility] Work Phone: 03-31-2021 Influenza, Quadv, adjuvanted, 65 yrs +, IM, PF (Fluad) Sommer Chatterjee DPM Work Phone: [facility] Work Phone: 03-31-2021 pneumococcal polysaccharide vaccine, 23 valent Sommer Chatterjee DPM Work Phone: [facility] Work Phone: 03-31-2021 zoster vaccine recombinant Sommer Chatterjee DPM Work Phone: [facility] Work Phone: 08-27-2020 COVID-19, J&J, PF, 0 .5 mL Shiv Lopez MD Work Phone: [facility] Work Phone: 03-31-2020 influenza virus vacc ine, unspecified formulation Shiv Lopez [facility] Work Phone: 03-31-2020 Influenza, Quadv, adjuvanted, 65 yrs +, IM, PF (Fluad) Shiv Lopez [facility] Work Phone: 06-03-2019 influenza, high dose seasonal, preservative-free Shiv Lopez [facility] 05-25-2018 influenza, high dose seasonal, preservative-free Daryaana Berrios [facility] 05-13-2013 influenza virus vacc ine, unspecified formulation [place], [place] 05-13-2013 influenza virus vacc ine, whole virus Shiv Lopez [facility] Work Phone: 03-09-2012 pneumococcal Conjuga te, unspecified formulation Shiv John [facility] Work Phone: 03-09-2012 pneumococcal polysaccharide vaccine, 23 valent Darya Berrios [facility] 03-09-2012 pneumococcal vaccine , unspecified formulation [facility] 04-13-2010 pneumococcal polysaccharide vaccine, 23 valent Darya Berrios [facility] 03-21-2001 pneumococcal polysaccharide vaccine, 23 valent Darya Berrios [place], [place] Payers Date Payer Category Payer Self-pay [id number] 2024 Unknown [id number] 2024 Unknown [id number] 2022 Medicare HUMANA MEDICARE ADVANTAGE HUMANA MEDICARE [id number] 2022-Present [address] [place] [phone] Medicare HMO [id number] 2020 Medicare [id number]. [id number] 2020 Medicare [id number]. [id number] 2018 Medicare HUMANA MEDICARE HUMANA CHOICE-PPO MEDICARE xxxxxxxxx 2018-Present [address] [place] [phone] xxxxxxxxx [id number]. [id number] Private Health Insurance [facility] [id number] Unknown Unknown [id number] [employer] DUAL ACCESS [id number] Unknown [id number] 2.840.1.850650.3.579.2. 462 Unknown [id number] 2.840.1.945327.3.579.2. 462 Unknown [id number] 2.840.1.834565.3.579.2. 462 Unknown [id number] 2.840.1.784262.3.579.2. 462 Unknown [id number] 2.840.1.284465.3.579.2. 462 Unknown [id number] 2.16.840.1.549203.3.579.2. 462 Unknown [id number] 2.16.840.1.993433.3.579.2. 462 Unknown [id number] 2.16.840.1.094063.3.579.2. 462 Unknown [id number] 2.16.840.1.230232.3.579.2. 462 Unknown [id number] 2.16840.1.319832.3.579.2. 462 Unknown [id number] 2.16840.1.184232.3.579.2. 462 Unknown [id number] 2.840.1.251374.3.579.2. 462 Unknown [id number] 2.840.1.152523.3.579.2. 462 Unknown [id number] 2.840.1.526943.3.579.2. 462 Unknown [id number] 2.840.1.290935.3.579.2. 462 Unknown [id number] 2.840.1.508661.3.579.2. 462 Unknown [id number] 2.840.1.193848.3.579.2. 462 Unknown [id number] 2.840.1.568301.3.579.2. 462 Unknown [id number] 2.840.1.031777.3.579.2. 462 Unknown [id number] 2.16840.1.345175.3.579.2. 462 Unknown [id number] 2.16840.1.791281.3.579.2. 462 Unknown [id number] 2.16840.1.643178.3.579.2. 462 Unknown [id number] 2.16840.1.012337.3.579.2. 462 Unknown [id number] 2.840.1.036331.3.579.2. 462 Unknown [id number] 2.16.840.1.067808.3.579.2. 462 Unknown [id number] 2.16.840.1.071022.3.579.2. 462 Unknown [id number] 2.16.840.1.448085.3.579.2. 462 Unknown [id number] 2.16.840.1.255447.3.579.2. 462 Unknown [id number] 2.16.840.1.594205.3.579.2. 462 Unknown [id number] 2.16.840.1.286404.3.579.2. 462 Unknown [id number] 2.16.840.1.789893.3.579.2. 462 Unknown [id number] 2.16.840.1.053070.3.579.2. 462 Unknown [id number] 2.16.840.1.503756.3.579.2. 462 Unknown [id number] 2.16.840.1.169721.3.579.2. 462 Unknown [id number] 2.16.840.1.418394.3.579.2. 462 Social History Date Type Detail Facility Start: 07-13-2020 End: 03-03-2023 Tobacco smoking status NHIS Never smoker [place], [place] Start: 07-13-2020 End: 04-09-2022 Tobacco use and exposure Never used [facility] Phone: Start: 07-13-2020 End: 06-30-2022 Alcohol intake Current drinker of alcohol (finding) [facility] Phone: Start: 01-13-2015 Alcohol Comment [place], [place] Start: 1945 Sex Assigned At Female [facility] Phone: Start: 08-30-2021 End: 02-28-2023 Exposure to SARS-CoV-2 (event) Not sure [facility] Phone: Start: 01-18-2019 End: 12-13-2022 Alcohol intake Yes [facility] Sex Assigned At Not on file [facility], [place] Start: 02-01-2019 End: 03-03-2023 Tobacco smoking status NHIS Unknown if ever smoked [facility] Start: 10-14-2020 End: 12-13-2022 Alcohol intake [facility] Start: 02-16-2021 End: 04-26-2022 History SDOH Alcohol Frequency 1 [facility] Work Phone: Start: 02-15-2021 End: 04-26-2022 History SDOH Financial 3 [facility] Work Phone: Start: 02-15-2021 End: 04-26-2022 History SDOH Transport Med 2 [facility] Work Phone: Start: 04-09-2022 Alcohol Comment social [facility] Within the last year , have you been afraid of your partner or ex-partner? No [facility] How often to you hav e a drink containing alcohol? 2-4 times a month [facility] How many standard dr inks containing alcohol do you have on a typical day? 1 or 2 [facility] How often do you hav e 6 or more drinks on 1 occasion? Never [facility] How hard is it for y ou to pay for the very basics like food, housing, medical care, and heating [facility] (I/We) worried wheth er (my/our) food would run out before (I/we) got money to buy more. Never true [facility] In the past 12 month s, has lack of transportation kept you from medical appointments or from getting medications? No [facility] Start: 12-07-2022 Alcohol Comment social; 1 mixed drink every 2 weeks [facility] Start: 04-07-2022 Gender identity Identifies as female gender (finding) [facility] Start: 04-07-2022 Sexual orientation Heterosexual (finding) [facility] Do you feel stress - tense, restless, nervous, or anxious, or unable to sleep at night because your mind is troubled all the time - these days [OSQ] Only a little [facility] Are you now , , , , never or living with a partner? [facility] Start: 09-18-2024 End: 10-14-2024 Sex Female (finding) [facility] Medical Equipment Procedure Code Equipment Code Equipment Origin al Text Equipment Identifier Dates Test blood sugar 4 times a day [id number] Start: 03-25-2020 End: 10-01-2020 2 daily [id number] Start: 03-20-2019 Test blood sugar 4 times daily [id number] Start: 01-01-2019 test blood sugar 4 times daily [id number] Start: 01-13-2020 300 each by Does not apply route 4 times daily [id number] Start: 01-01-2019 ASSURE COMFORT LANCETS 30G MISC [id number] Start: 09-07-2016 1 each by In Vit ro route 4 times daily [id number] Start: 01-01-2019 4 times a day [id number] Start: 09-22-2017 2 daily [id number] Start: 01-03-2019 4 times a day [id number] Start: 07-25-2018 1 each by In Vit ro route 4 times daily as needed (patient tests four times daily and as needed) Patient tests QID [id number] Start: 03-01-2021 Test blood sugar 4 times daily [id number] Start: 12-18-2020 1 each by In Vit ro route 4 times daily Accu-check [facility] [id number] Start: 06-22-2021 End: 08-05-2021 Test blood sugar 3 times a day.PLEASE FILL FOR Q[facility] TEST STRIPS [id number] Start: 09-09-2021 [id number] Start: 01-10-2022 End: 03-03-2023 Goals Date Patient [...] Functional status Ambulates;Wilson r;Bathroom Privilege [facility] Work Phone: Mental Status Date Assessment Result Facility 03-18-2023 Cognitive function Voice/Name [facility] Work Phone: 03-18-2023 Cognitive function Appropriate;Tayler fonseca [facility] Work Phone: Clinical Notes 06-30-2022 to 12-29-2023 Felicia Garcia LPN - 12/29/2023 1:02 PM Oliva Garcia LPN - 12/29/2023 1:02 PM EDTAshia Dumont - 12/29/2023 1:02 PM EDT Note Date & Type Note Facility 12-29-2023 History of Presen t illness Narrative Please schedule AWV. documented in this encounter [facility] 12-29-2023 History of Presen t illness Narrative Please schedule AWV. Called patient---phone number is not working--sent letter by mail. documented in this encounter [facility] 05-19-2023 Note THE PT. WAS SCHEDULE D FOR AN OUTREACH TODAY. EMR REVIEWED. CM CALLED AND SPOKE WITH A STAFF MEMBER AT [facility] AND THE PT. IS STILL ADMITTED TO THE CORRECTION FACILITY. CM WILL CONTINUE TO FOLLOW-UP WITH THE PT. ONCE SHE IS DISCHARGED TO HOME. [facility] 05-03-2023 Note THE PT. WAS SCHEDULE D FOR AN OUTREACH TODAY. EMR REVIEWED. CM CALLED AND SPOKE WITH A STAFF MEMBER AT [facility] AND THE PT. IS STILL ADMITTED TO THE CORRECTION FACILITY. CM WILL CONTINUE TO FOLLOW-UP WITH THE PT. ONCE SHE IS DISCHARGED TO HOME. [facility] 03-29-2023 Note Referral from [place] Daily Census Report. Patient with recent admit to [facility] 02/28-03/03 with LING/functional decline and was discharged to [facility]. Patient with several chronic diagnoses. Will send referral to [facility] Shari BARROW, for further chart review and potential ongoing CM. [facility] 03-17-2023 Discharge summary Note Date/Time March 15, 2023 7:15pm [facility] Medical Records Department [address] [place] [address] Discharge Summary 03/15/23 1914 MR#: [id number] Acct: [id number] Name: TAMMYLYDIARADHA L Rep #:[id number] : 1945 77 From: Baljit Jaffe MD PCP: Dr. Shiv Lopez MD Status:ADM IN Location: [place] [address] Providers Date of Admission: 03/03/23 Primary Care [...] - Buspar 5mg bid prn, stable chronic chcf use, GDR not recommended. * Vitamin D [...] Depression - Paroxetine 20mg qhs, stable chronic chcf use, GDR not recommended. * Restless Leg [...] unit/mL subcutaneous solution 19 unit subcut DAILY [facility]85/15/23 insulin lispro 100 unit/mL subcutaneous pen (Humalog [...] for cellulitis bilateral lower extremities. Discharge to [facility] 03/18/2023, intermediate, Part B therapies. Physical [...] and Uncontrolled pain Additional Instructions: Discharge to [facility] 03/18/2023, intermediate, Part B therapies. Meaningful Use Info Meaningful Use Diagnoses (Choose all that apply): None applicable Discharge Plan Admission Admit Date/Time: 03/03/23 13:30 Primary Reason for Your Visit: Debility. Attending Provider: Baljit Jaffe Chi Primary Care Provider: Shiv Lopez Consulting Providers: Omar Huitron Instructions Additional Instructions / Restrictions: Discharge to [facility] 03/18/2023, intermediate, Part B therapies. Discharge [...] before D/C Order can be placed): [facility]illed [facility] 03/15/231933 <Electronically signed by Baljit Jaffe [...] bid x 10 days, culture pending at [facility] lab. 03/17/23 1545<Electronically signed by Baljit Jaffe MD> Cosigner Signature (if applicable): cc: Dr. Shiv Lopez MD; Dr. Baljit Jaffe MD ~* Signed [facility] Work Phone: 1(866) 321-249309-27-2023 Discharge summary Author Baljit Jaffe [facility] March 15, 2023 7:35pm Note Date/Time March 15, 2023 7:35pm [facility] Medical Records Department [address] [place] [address] Transfer to Extended Care MR#: [id number] Acct: [id number] Name: RADHA SANDOVAL Rep #:[id number] : 1945 77 From: Baljit Jaffe MD PCP: Dr. Shiv Lopez MD Status:ADM IN Certification of patient admission REQUIRED AT TIME OF ADMISSION. I CERTIFY THAT POST-HOSPITAL ECF SERVICES ARE REQUIRED TO BE GIVEN ON AN IN-PATIENT BASIS BECAUSE OF THE ABOVE NAMED PATIENT'S NEED FOR SKILLED NURSING CARE ON A CONTINUING BASIS FOR THE [...] - Buspar 5mg bid prn, stable chronic filler leaf cutter long use, GDR not recomme nded. * Vitamin [...] Depression - Paroxetine 20mg qhs, stable chronic filler leaf cutter long use, GDR not recommended. * Restless Leg [...] Instructions Additional Instructions / Restrictions: Discharge to [facility] 03/18/2023, intermediate, Part B therapies. Discharge [...] Dr. Shiv Lopez MD ~ [facility] Work Phone: 1(638) 893-794609-27-2023 NotePlease send her immunization record [facility] [id number] Consult note Author Shine Rojas [facility] March 08, 2023 11:33am Note Date/Time March 08, 2023 11:33am [facility] Medical Records Department [address] [place] [address] Consultation 03/08/23 1130 MR#: [id number] Acct: [id number] Name: RADHA SANDOVAL Rep #:[id number] : 1945 77 From: Shine Rojas DPM PCP: Dr. Shiv Lopez MD Status:ADM IN Location: [place] [address] Assessment & Plan Assessment/Plan (1) Type 2 [...] controlled today not causing patient any issues. [facility] Medical History Anemia Arthritis Chronic pain [...] unit/mL subcutaneous solution 19 unit subcut DAILY Kwprkwvo85/15/23 [History Last Taken 03/03/23] insulin lispro 100 [...] Dr. Baljit Jaffe MD~ Signed [facility] Work Phone: 1(226) 329-527809-19-2023 Progress note Author Betty Hicks [facility] March 07, 2023 4:16pm Note Date/Time March 07, 2023 3:00pm [facility] Medical Records Department [address] [place] [address] Progress Note - Pharmacy 03/07/23 1456 MR#: [id number] Acct: [id number] Name: RADHA SANDOVAL Rep #:[id number] : 1945 77 From: Betty Hicks PCP: Dr. Shiv Lopez MD Status:ADM IN Location: [place] [address] TCU RX Drug Regimen Review Subjective/Objective Subjective/Objective: [...] 113 Gm Tube TOPICAL 1 applic BID [facility] Administration Protocol Enoxaparin Sodium 40 mg 03/04/23 06:00 03/07/23 06:43 Enoxaparin 40 Mg/0.4 Ml Syringe SC 40 mg DAILY@0600 [facility] Administration Ergocalciferol 1.25 mg 03/10/23 08:00 Ergocalciferol 1.25 Mg (50, 000 Unit) Capsule PO QWEEK [facility] Hydralazine HCl 25 mg 03/03/23 22:00 03/07/23 [...] 100 Unit/Ml Insuln.Pen SC 10 unit TIDAC [facility] Administration Levothyroxine Sodium 125 mcg 03/04/23 06:00 [...] (if applicable): CC: ~ Signed [facility] Work Phone: 1(619) 357-188109-15-2023 History and physical note Author Baljit Jaffe [facility] March 03, 2023 4:39pm Note Date/Time March 03, 2023 3:08pm [facility] Medical Records Department [address] [place] [address] History & Physical Exam 03/03/23 1501 MR#: [id number] Acct: [id number] Name: RADHA SANDOVAL Rep #:[id number] : 1945 77 From: Baljit Jaffe MD PCP: Dr. Shiv Lopez MD Status:ADM IN Location: [place] [address] HPI - General General Date of Admission: 03/03/23 Date of Service: 03/03/23 Chief Complaint: Here for rehabilitation. HPI Narrative RADHA SANDOVAL, is a 77 Female who presents with followin02/27/2023 Dr. Shiv Lopez prescribed Augmentin for dysuria, polyuria, low back pain for urinary tract infection. Augmentin not started, symptoms worse, patient presented to ED. 02/28/2023 Admit to [facility]. Low back pain, dysuria, polyuria, weakness. Diabetes with hyperglycemia, weakness, urinary tract infection. IV antibiotics for urinary tract infection. IV fluids, sliding scale insulin for Diabetes Mellitus II. PT/OT for weakness. 03/01/2023 Feels better, weak, pain improved. Continue IV antibiotics. 03/03/2023 Admit to TCU with debility, here for rehabilitation, strengthening, prior to discharge home alone. [facility] Medical History Anemia Arthritis Chronic pain [...] unit/mL subcutaneous solution 19 unit subcut DAILY Mvhxpfnu22/15/23 [History Last Taken 03/03/23] insulin lispro 100 [...] - Buspar 5mg bid prn, stable chronic filler leaf cutter long use, GDR not recommended. * Vitamin D [...] Depression - Paroxetine 20mg qhs, stable chronic chcf use, GDR not recommended. * Restless Leg syndrome - Mirapex 0.25mg qhs. 03/03/23 1639 <Electronically signed by Baljit Jaffe MD> Cosigner Signature (if applicable): CC: Dr. Shiv Lopez MD; Dr. Baljit Jaffe MD~ Signed [facility] Work Phone: 1(942) 761-553209-15-2023 History of Present illness Narrative* Randi Marquez RN - 03/03/2023 1:08 PM EDT Discharged via ambulance to [facility] * aRndi Marquez RN - 03/03/2023 11:19 AM EDT Report called to pippa at [facility] at [phone] * Jelly Paz APRN - CUSTOMER PROFESSIONAL - 03/02/2023 12:54 PM EDT Images from the original note were not included. Department of Internal Medicine Division of Endocrinology, Diabetes, & Metabolism Endocrinology Note Patient Name: Radha Sandoval : 1945 AGE: 77 y.o. Room/Bed: [facility]153/[facility] A Admission Date: 02/28/2023 Visit Date: 03/02/2023 Reason for Endocrine Consult: DM-Uncontrolled Provider/Team Requesting Consult: Dr. Finch PCP: Shiv Lopez MD Outpt Logging Operations Inspector: No ASSESSMENT: Type II diabetes with hyperglycemia, with chcf insulin use Postoperative hypothyroidism Patient admitted for [...] before breakfast Patient to discharge to SNF [facility] Outpt Follow Up-- PCP SUBJECTIVE/HPI: [...] diagnosis. She has been having diarrhea in 9785-9628, smt severe Glimepiride- started in 2015 Trulicity [...] CHOLHDLRATIO 4 02/16/2021 No results found for: [id number] Lab Results Component Value Date TSH 0.03 (L) 02/27/2023 Radiology reportsas per the Radiologist Radiology: CT abdomen pelvis wo IV contrast Result Date: 02/28/2023 Patient Name: RAD[facility]AL [facility] 1945 [id number] ExamDate/Time: 02/28/2023 13:07 Procedure: CT ABDOMEN PELVIS [...] 12/07/2022 Performed by Avery Marshall DO at [facility] ENDOSCOPY EYE SURGERY Bilateral early 90's [...] & ED's Treatment Note Name/MRN: Radha Sandoval ([id number]) Date of : 1945 Age: 77 y.o. Room/Bed: [facility]153/[facility] A Visit #: 1 out of 7 [...] of chronic pain from previous shoulder surgery.Pt magdao's approx 60 degrees shoulder flexion, RUE [...] were not included. Hospitalist Progress Note 03/02/2023 [phone]: Please secure chat me for patient care issues. [phone]: Please secure chat [facility] Hospitalist for any issues. Subjective: Admit Date: 02/28/2023 PCP: Shiv Lopez MD Room#: B1-153/B1-153 A Interval History: Tolerating diet. Remains weak. Still urinating frequently. She denies chest pain,sob, cough, abdominal pain, nausea, vomiting, diarrhea, constipation, fevers, or chills. D/w pt Adult diet Regular; Low Sodium (2 gm); 4 carb choices (60 gm/meal) @[id number]@ 24HR INTAKE/OUTPUT: No intake or output data [...] Date - 03/03 - Location - [facility] - Pending the following - [...] Information Primary Emergency Contact: Angel Roger Address: [address] [facility] Mobile Relation: Child GABRIELLE FINCH MD Division of Hospitalist Medicine Acute care [facility] PAGER: Epic chat * Diann Hollis, ELSA - CUSTOMER PROFESSIONAL - 03/02/2023 9:31 AM EDT [facility] Geriatric Medicine Inpatient Consult Service Admission Date: 02/28/2023 Assessment Principal Problem: LING (acute kidney injury) ([facility]/HCC) ([facility]) Active Problems: Declining functional status Weakness Anxiety Polypharmacy DNR (do not resuscitate) Insomnia Plan Declining functional status -Related to physical deconditioning, UTI, advanced age, diabetes type 2 -Continue PT/OT as able while inpatient -Anticipate d/c to SNF for ongoing daily PT/OT, patient agreeable to go to [facility] Fall Weakness -Multiple risk factors [...] contact guard. Ambulated 30 ft x2. Recommending [facility] facility . Review of Systems Constitutional: Negative [...] liquid, , Topical, Daily PRN, Rosalinda Burrows, HEEL BOOM OPERATOR - CUSTOMER PROFESSIONAL cholecalciferol (Vitamin D3) tablet 1,000 Units, 1,000 [...] 19 Units, SubCUTAneous, q AM, Jelly Paz, HEEL BOOM OPERATOR - CUSTOMER PROFESSIONAL, 19 Units at 03/02/23908 Insulin Lispro (Humalog) injection 0-12 Units, 0-12 Units, SubCUTAneous, TID WC, 2 Units at 03/02/23908 AND [DISCONTINUED] Insulin Lispro (Humalog) injection 0-12 Units, 0-12 Units, SubCUTAneous, Nightly, Gabrielle Finch MD, 4 Units at 02/28/232053 Insulin Lispro (Humalog) injection 6 Units, 6 Units, SubCUTAneous, 4x daily AC & HS, Jelly Paz, HEEL BOOM OPERATOR - CUSTOMER PROFESSIONAL, 6 Units at 03/02/23604 levothyroxine (Synthroid, Levoxyl) [...] 0.03 (L) 02/27/2023 No results found for: [id number] Lab Results Component Value Date VITD25 17 (L) 03/02/2023 Reviewed: allergies, previous encounters, imaging, active problem lists, medications, and labs * Edelmira Hanna - 03/02/2023 8:23 AM EDT Nutrition rescreen completed. Pt referred to RD for uncontrolled DM, and nutrition supplement per Wound Care. * Monet Mcdonnell, PT - 03/01/2023 3:47 PM EDT Physical Therapy Facility/Department: [address] Physical Therapy Initial Evaluation NAME: Radha Sandoval : 1945 Date of Service: 03/01/2023 Discharge Recommendations: Chcf Facility, Continue to assess pending progress PT [...] diagnosis was LING (acute kidney injury) (CMS/HCC) ([facility]). Diagnoses of Pyelonephritis, Polypharmacy, Insomnia, unspecified type, and Pressure ulcer of right buttock, stage [address] ([facility]) were also pertinent to this visit. has a past medical history of Acquired lymphedema, Allergic, Anxiety, Arthritis, Asthma, Candidiasis of vulva and vagina, CKD (chronic kidney disease), Depression, Dietary counseling and surveillance, Hyperlipidemia, Hyperparathyroidism ([facility]), Hypertension, Hypothyroidism, Malaise and fatigue, Morbid obesity ([facility]), Muscle weakness, Nevus, non-neoplastic, Pain in limb, Pure hypercholesterolemia, RLS (restless legs syndrome), Type 2 diabetes mellitus (HCC), and Varicella. has a past surgical history that includes Appendectomy; Cholecystectomy (1979); Colonoscopy (06/19/2008); Lung removal, partial (Left); Rotator cuff repair (Left); Tonsillectomy; Eye surgery (Bilateral, early 90's); and Colonoscopy w/ biopsies and polypectomy (N/A, [...] Device: straight cane Transfer Assistance: Independent Active Jewelry Store Manager: Yes Objective Observation/Palpation Posture: Good Observation: [...] were not included. Hospitalist Progress Note 03/01/2023 [phone]: Please secure chat me for patient care issues. [phone]: Please secure chat [facility] Hospitalist for any issues. Subjective: Admit Date: 02/28/2023 PCP: Shiv Lopez MD Room#: B1-153/B1-153 A Interval History: Feels better. Weak. Tolerating diet. Pain markedly improved. She denies chest pain, sob, cough, abdominal pain, nausea, vomiting, diarrhea, constipation, fevers, or chills. D/w pt and Geriatrics separately. Adult diet Regular; Low Sodium (2 gm); 4 carb choices (60 gm/meal) @[id number]@ 24HR INTAKE/OUTPUT: No intake or output data [...] Information Primary Emergency Contact: Angel Roger Address: [address] Mobile Relation: Child GABRIELLE FINCH MD Division of Hospitalist Medicine Acute care solutions PAGER: Epic chat * Gunner Edie Roberts, OT - 03/01/2023 11:54 AM EDT Images from the original note were not included. Occupational Therapy OCCUPATIONAL THERAPY [facility] & ED's Initial Evaluation Name/MRN: Radha Sandoval ([id number]) Evaluation Date: 03/01/2023 Date of : 1945 Admission Date: 02/28/2023 11:30 AM Age: 77 y.o. Room/Bed: B1153/[facility] A Discharge Recommendation: SNF and [...] 12/07/2022 Performed by Avery Marshall DO at [facility] ENDOSCOPY EYE SURGERY Bilateral early 90's LUNG REMOVAL, PARTIAL Left ROTATOR CUFF REPAIR Left TONSILLECTOMY Admission Diagnosis: Patient Active Problem List Diagnosis Date Noted LING (acute kidney injury) ([facility]/HCC) (HCC) 02/28/2023 Acute cystitis with hematuria 02/27/2023 Diarrhea 02/27/2023 Wound of right buttock 02/07/2023 Hypokalemia 12/13/2022 Gastrointestinal bleed 12/07/2022 Other chronic sinusitis 10/25/2022 Urinary frequency 10/04/2022 Chronic left shoulder pain 10/04/2022 Diabetes mellitus due to underlying condition with diabetic chronic kidney disease ([facility]) 06/30/2022 DDD (degenerative disc disease), lumbar 06/30/2022 Chronic right-sided low back pain with right-sided sciatica 06/30/2022 Dyspnea on exertion 09/09/2021 Muscle spasms of both lower extremities 09/09/2021 Lymphedema of both lower extremities 08/05/2021 OAB (overactive bladder) 05/06/2021 Localized edema 10/01/2020 Dependent edema 07/13/2020 Uncontrolled type 2 diabetes mellitus with hyperglycemia ([facility]) 01/16/2020 Morbidly obese ([facility]) 01/16/2020 Vitamin D deficiency 01/16/2020 Moderate episode of recurrent major depressive disorder ([facility]) 06/03/2019 Chronic renal insufficiency, stage III (moderate) ([facility]) 06/03/2019 Hyperlipidemia with target LDL less [...] Responsibilities: Independent Receives Help From: None Active Jewelry Store Manager: Yes Prior Level of Function ADL [...] of Care supervision is transferred to a [facility] Therapy Services Occupational Therapist. Goals and/or treatment plan was established in collaboration with patient/family/other representatives. documented in this [facility]09-15-2023 Hospital course Narrative* Gabrielle Finch MD [...] wound care RECOMMENDED NEXT STEPS: Transferred to [facility] SNF. Continue close [...] mg) by mouth daily. ergocalciferol 1.25 MG (27098 UT) capsule Commonly known as: Vitamin D-2 [...] Your Medications These medications were sent to [facility] [address] [place] [address] Hours: Monday to Monday 10 am to [...] Complexity: follow up within 7-14 calendar days (37616) [] Severe Complexity: follow up within 7 calendar days (80066) FOLLOW UP TESTING, PENDING RESULTS OR REFERRALS AT TRANSITIONAL CARE VISIT: [] Yes [] No PENDING STUDIES: No DISPOSITION: SNF FACILITY/HOME CARE AGENCY NAME: [facility] SNF Follow up with [facility] Geriatrics [address] [facility] [phone] INSTRUCTIONS TO MA/SW: Please call patient on [...] MD 03/03/2023, 5:28 PM documented in this [facility]09-15-2023 NoteDischarge Summary Radha Sandoval : 1945 [...] wound care RECOMMENDED NEXT STEPS: Transferred to [facility] SNF. Continue close [...] LABS: CBC: Recent Labs 03/01/2334303/02/23 0400 03/03/23 013 WBC 13.8* 9.5 9.0 RBC 4.00 [...] mg) by mouth daily. ergocalciferol 1.25 MG (76534 UT) capsule Commonly known as: Vitamin D-2 [...] taking these medications amoxicillin-clavulan (more content not included)...[facility] 03-03-2023 Note* Care Coordination - Ester Lipscomb - 03/03/2023 11:21 AM EDT Discharge med list transmitted to [facility] via Careport per TCC request. [id number] Miscellaneous Notes* Restricted notes were excluded * Care Coordination - Ester Lipscomb - 03/03/2023 11:21 AM EDT Discharge med list transmitted to [facility] via Careport per TCC request. * Care Coordination - Unknown Case Management - 03/03/2023 11:20 AM EDT Patient Choice Patient Name: RADHA SANDOVAL Date of : 1945 All Providers Sent Referral Name: [facility] SNF Address: [address] [place], [place] [id number] [facility] Address: [address] [place] [address] * Care Coordination - Laura Jackson RN - 03/03/2023 9:33 AM EDT Spoke with pt at bedside regarding POA, pt states she is not interested at this time to complete itand would consider completing at [facility] - did call Rafaela at [facility] to update her as well. * Care Coordination - COLT Hill - 03/03/2023 8:41 AM EDT Transportation arranged through [facility] by cot set for 10 am picker machine operator. Will notify RN and TCC of this in rounds. Notified patient's son via phone of transportation time. SW remains available if any other needs concerns arise. * Care Coordination - Laura Jackson RN - 03/03/2023 7:29 AM EDT Insurance auth obtained for [facility], updated Dr Finch notified via [employer]. * Care Coordination - Laura Jackson RN - 03/02/2023 11:15 AM EDT Received a call from Rafaela at [facility], they are able to accept, pt agreeable. supervisor order takers tasked to start [employer] auth for [facility] at this time * Care Coordination - Ester Lipscomb - 03/02/2023 8:40 AM EDT [facility]. Await review and response regarding ability to accept. TCC notified. * Care Coordination - Laura Jackson RN - 03/02/2023 8:21 AM EDT Spoke with pt agreeable for referral to [facility] and [facility], [facility] tasked to complete * Home Care - Alexander Anaya LPN - 03/01/2023 4:25 PM EDT Degreasing Wheel Operator following case for Discharge Needs. Therapy states SNF, but Patient wants HC instead. * Care Coordination - Laura Jackson RN - 03/01/2023 10:14 AM EDT Care Managment Initial Assessment Date: 03/01/2023 Patient Name: Radha Sandoval : 1945 Patient Information Source of Information: Patient Cognition/Language: WFL - Within Functional Limits Permission given to speak with patient traffic representative/caregiver as indicated: Yes Confirmation of Payer [...] Daily Living Prescription Coverage: Yes Pharmacy Used: [facility] Medication Management: Independent Transportation/Shopping: Independent Transportation Mode: [...] in SNF but would be able to [facility]. [facility] liaison following, TCC to assist and follow as needed. Laura Jackson RN * Care Plan - Anaya Carr RN - 02/28/2023 6:10 PM EDT Problem: Pain - Adult Goal: Verbalizes/displays adequate comfort level or baseline comfort level Outcome: Progressing Problem: Safety - Adult Goal: Free from fall injury Outcome: Progressing documented in this encounterSAkron Children's [id number] Note* Care Coordination - Unknown Case Management - 03/03/2023 11:20 AM EDT Patient Choice Patient Name: RADHA SANDOVAL Date of : 1945 All Providers Sent Referral Name: [facility] SNF Address: [address] [place] [address] [facility] Address: [address] [place] [address] [facility] [id number] Note* Care Coordination - Laura Jackson RN - 03/03/2023 9:33 AM EDT Spoke with pt at bedside regarding POA, pt states she is not interested at this time to complete itand would consider completing at [facility] - did call Rafaela at [facility] to update her as well. [facility] [id number] Note* Care Coordination - COLT Hill - 03/03/2023 8:41 AM EDT Transportation arranged through [facility] by cot set for 10 am picker machine operator. Will notify RN and TCC of this in rounds. Notified patient's son via phone of transportation time. SW remains available if any other needs concerns arise. [facility] [id number] Note* Care Coordination - Laura Jackson RN - 03/03/2023 7:29 AM EDT Insurance auth obtained for [facility], updated Dr Finch notified via [employer] Chat. [facility] [id number] Note* Care Coordination - Laura Jackson RN - 03/02/2023 11:15 AM EDT Received a call from Rafaela at [facility], they are able to accept, pt agreeable. supervisor order takers tasked to start [employer] auth for [facility] at this time [facility] HospitalGicfwe06-82-4566 NoteHospitalist Progress Note 03/02/[id number]: Please secure chat me for patient care issues. [phone]: Please secure chat [facility] Hospitalist for any issues. Subjective: Admit Date: 02/28/2023 PCP: Shiv Lopez MD Room#: [facility]153/[facility] A Interval History: Tolerating diet. Remains weak. Still urinating frequently. She denies chest pain, sob, cough, abdominal pain, nausea, vomiting, diarrhea, constipation, fevers, or chills. D/w pt Adult diet Regular; Low Sodium (2 gm); 4 carb choices (60 gm/meal) @[id number]@ 24HR INTAKE/OUTPUT: No intake or output data [...] Date - 03/03 - Location - [facility] - Pending the following - [...] Information Primary Emergency Contact: Angel Roger Address: [address] Mobile Relation: Child GABRIELLE FINCH MD Division of Hospitalist Medicine (more content not included)...[facility]09-14-2023 Note* Care Coordination - Ester Lipscomb - 03/02/2023 8:40 AM EDT Referral placed to [facility] via [facility] per TCC request. Await review and response regarding ability to accept. TCC notified. [facility] HospitalRwyxvo20-66-6850 NoteReferral placed to [facility] via Careport per TCC request. Await review and response regarding ability to accept. TCC notified. [facility]09-14-2023 Note* Care Coordination - Laura Jackson RN - 03/02/2023 8:21 AM EDT Spoke with pt agreeable for referral to [facility] snf and apostolic, RUG TOUCH UP PAINTER tasked to complete [facility] [id number] NoteSpoke with pt agreeable for referral [facility], RUG TOUCH UP PAINTER tasked to complete [facility]09-13-2023 Note* Home Care - Alexander Anaya LPN - 03/01/2023 4:25 PM EDT Degreasing Wheel Operator following case for Discharge Needs. Therapy states SNF, but Patient wants HC instead. [facility] [id number] Consult note* Rosalinda Burrows APRN - CUSTOMER PROFESSIONAL - 03/01/2023 2:34 PM EDT Images from the original note were not included. [facility] Wound Care CONSULT Note Radha Sandoval AGE: [...] 12/07/2022 Performed by Avery Marshall DO at [facility] ENDOSCOPY EYE SURGERY Bilateral early 90' [...] tablet 0 ergocalciferol (Vitamin D-2) 1.25 MG (54979 UT) capsule Take 1 capsule (1.25 mg) [...] Care to follow Please follow up at [facility] wound care [place]ry after hospital discharge. Thank you for the [...] reflectmy own independent evaluation of this patient. [facility] [id number] Consult note* ELSA Rosenbaum CNP - 03/01/2023 2:34 PM EDT Images from the original note were not included. [facility] Wound Care CONSULT Note Radha Sandoval AGE: [...] Uncontrolled type 2 diabetes mellitus with hyperglycemia ([facility]) 01/16/2020 Morbidly obese ([facility]) 01/16/2020 Vitamin D deficiency 01/16/2020 Moderate episode of recurrent major depressive disorder ([facility]) 06/03/2019 OAB (overactive bladder) 05/06/2021 Localized edema 10/01/2020 Insomnia 04/06/2015 Dyspnea on exertion 09/09/2021 Muscle spasms of both lower extremities 09/09/2021 Chronic renal insufficiency, stage III (moderate) ([facility]) 06/03/2019 Restless legs syndrome (RLS) 01/14/2015 [...] 12/07/2022 Performed by Avery Marshall DO at [facility] ENDOSCOPY EYE SURGERY Bilateral early 90's [...] tablet 0 ergocalciferol (Vitamin D-2) 1.25 MG (47001 UT) capsule Take 1 capsule (1.25 mg) [...] Care to follow Please follow up at [facility] wound care perry after hospital discharge. Thank you for the [...] from the original note were not included. [facility] Geriatric Medicine Inpatient Consult Service Admission Date: 02/28/2023 Admission Status: INPATIENT Chief Complaint: "I couldn't get around and they directed me to the hospital because I was peeing constantly from that UTI." Reason for Appointment Geriatrics consulted for "functional decline" Assessment/Plan Principal Problem: LING (acute kidney injury) (CMS/HCC) ([facility]) Active Problems: Declining functional status Weakness [...] necessary I recommended follow up at [facility] at [phone]. Call in 2 weeks for memory (re)testing once acute issue(s) resolve - order placed in the medical center for follow-up Other I deferred [...] accidents, getting lost. Knows she's here at [facility] due to UTI. States she [...] Healthcare Power ofAttorney: No Financial Power of Data Warehouse Administrator: No Living Will:No Code Status: DNRCCA - [...] 12/07/2022 Performed by Avery Marshall DO at [facility] ENDOSCOPY EYE SURGERY Bilateral early 90's [...] Limits Permission given to speak with patient traffic representative/caregiver as indicated: Yes Confirmation of Payer with patient/family: Yes Payer Name: [employer] Dewart: No Confirmation of Primary Care Physician: Confirmed [...] Prescription Coverage: Yes Pharmacy Used: [facility] Medication Management: Independent Transportation/Shopping: Independent Transportation Mode: [...] recommendations communicated to primary service I used Tbricks messaging to message Dr. Finch on 03/01/23 at 12:35 to notify that geriatrics consult note has been completed and to page or call my personal cell with any questions. * Michelle Valle RN - 03/01/2023 9:33 AM EDTAssociated Order(s): IP CONSULT TO SUPERVISOR SILVERING DEPARTMENT This patient is not a new diabetic or new to insulin therapy and therefore does not meet our current criteria for the inpatient diabetes education service. The clinical bedside RN should provide any necessary diabetes education using the Diabetes SurvivalSkills Booklet available on the unit. Please consider a dietary consult if appropriate and if not already ordered. Contact [facility] pharmacist for assistance if a new glucometer or any associated supplies are needed. Thank you. Elder MUÑOZ,BSN,[facility] * Jelly Paz APRN - CUSTOMER PROFESSIONAL - 03/01/2023 8:03 AM EDTAssociated Order(s): IP CONSULT TO ENDOCRINOLOGY Department of Internal Medicine Division of Endocrinology, Diabetes, & Metabolism Endocrinology Note Patient Name: Radha Sandoval : 1945 AGE: 77 y.o. Room/Bed: [facility]153/B1153 A Admission Date: 02/28/2023 Visit Date: 03/01/2023 Reason for Endocrine Consult: DM-Uncontrolled Provider/Team Requesting Consult: Dr. Finch PCP: Shiv Lopez MD Outpt Logging Operations Inspector: No ASSESSMENT: Type II diabetes with hyperglycemia, with filler leaf cutter long insulin use Postoperative hypothyroidism PLAN: Humalog 6 [...] diagnosis. She has been having diarrhea in [id number], smt severe Glimepiride- started in 2015 Trulicity [...] CHOLHDLRATIO 4 02/16/2021 No results found for: [id number] Lab Results Component Value Date TSH 0.03 (L) 02/27/2023 Radiology reportsas per the Radiologist Radiology: CT abdomen pelvis wo IV contrast Result Date: 02/28/2023 Patient Name: RADHA SANDOVAL : 1945 [facility]#: [id number] ExamDate/Time: 02/28/2023 13:07 Procedure: CT ABDOMEN PELVIS [...] 12/07/2022 Performed by Avery Marshall DO at [facility] ENDOSCOPY EYE SURGERY Bilateral early 90's [...] date of this note. documented in this [facility]09-13-2023 NoteHospitalist Progress Note 03/01/[id number]: Please secure chat me for patient care issues. [phone]: Please secure chat [facility] Hospitalist for any issues. Subjective: Admit Date: 02/28/2023 PCP: Shiv Lopez MD Room#: B1-153/B1-153 A Interval History: Feels better. Weak. Tolerating diet. Pain markedly improved. She denies chest pain, sob, cough, abdominal pain, nausea, vomiting, diarrhea, constipation, fevers, or chills. D/w pt and Geriatrics separately. Adult diet Regular; Low Sodium (2 gm); 4 carb choices (60 gm/meal) @ALHL9HMBLPU@ 24HR INTAKE/OUTPUT: No intake or output data [...] Contact Information Primary Emergency (more content not included)...[facility] 03-01-2023 Hospital Discharge instructions* Discharge Instructions* [...] Continuity of Care Form Patient Name: Radha Sadnoval : 1945 Admit date: 02/28/2023 Discharge date: 03/03 Code Status Order: DNR-CCA Advance Directives: N Admitting Physician: Gabrielle Finch MD PCP: Shvi Lopez MD Discharging Nurse: Holli Marquez Discharging Hospital Unit/Room#: B1-153/B1-153 A Discharging Unit Emergency Contact: Extended Emergency Contact Information Primary Emergency Contact: Angel Roger Address: [address] Mobile Relation: Child Past Surgical History: Past Surgical History: Procedure Laterality Date APPENDECTOMY CHOLECYSTECTOMY 1979 COLONOSCOPY 06/19/2008 COLONOSCOPY W/ BIOPSIES AND POLYPECTOMY N/A 12/07/2022 Performed by Avery Marshall DO at [facility] ENDOSCOPY EYE SURGERY Bilateral early 90's [...] * (Principal) LING (acute kidney injury) ([facility]) ([facility]) Diabetes mellitus due to underlying condition with diabetic chronic kidney disease ([facility]) DDD (degenerative disc disease), lumbar Chronic right-sided low back pain with right-sided sciatica Urinary frequency Chronic left shoulder pain Other chronic sinusitis Gastrointestinal bleed Hypokalemia Wound of right buttock Acute cystitis with hematuria Diarrhea Declining functional status Weakness Anxiety (Chronic) Polypharmacy (Chronic) DNR (do not resuscitate) Dependent edema Uncontrolled type 2 diabetes mellitus with hyperglycemia ([facility]) Morbidly obese ([facility]) Vitamin D deficiency Moderate episode of recurrent major depressive disorder ([facility]) OAB (overactive bladder) Localized edema Insomnia Dyspnea on exertion Muscle spasms of both lower extremities Chronic renal insufficiency, stage III (moderate) ([facility]) Restless legs syndrome (RLS) Hyperlipidemia with [...] assistance Toileting Minimal assistance Feeding Minimal assistance Red Hat Engineer Minimal assistance Med Delivery yes Wound Care Documentation and Therapy: Wound/Incision 02/15/23 Pressure Injury Buttock Right;Midline (Active) Site Assessment Blanchable erythema;Clean;Dry;Dowling;Red 03/02/23 1100 Wound Length (cm) 1 cm [...] Score: @READMISSIONRISKDETAILS@ Discharging to Facility/ Agency Name: [place] [address] [address] Open 24 hours Dialysis Facility (if applicable) Name: Address: Dialysis Schedule: Phone: Fax: Acquisition Advisor/Rn Surgical signature: ICIAN SECTION Prognosis: good Condition at Discharge: stable Rehab Potential (if transferring to Rehab): excellent Recommended Labs or Other Treatments After Discharge: BMP/CBC in one week. MBS ac and hs Physician Certification: I certify the above information and transfer of Radha Sandoval is necessary for the continuing treatment of the diagnosis listed and that she requires penitentiary facility for less than 30 days. Update Admission H&P: No change in H&P PHYSICIAN SIGNATURE: documented in this [facility]09-13-2023 Consult note* Adam Holt MD - 03/01/2023 11:26 AM EDTAssociated Order(s): IP CONSULT TO GERIATRICS Images from the original note were not included. [facility] Geriatric Medicine Inpatient Consult Service Admission Date: 02/28/2023 Admission Status: INPATIENT Chief Complaint: "I couldn't get around and they directed me to the hospital because I was peeing constantly from that UTI." Reason for Appointment Geriatrics consulted for "functional decline" Assessment/Plan Principal Problem: LING (acute kidney injury) (CMS/HCC) ([facility]) Active Problems: Declining functional status Weakness [...] necessary I recommended follow up at [facility] at [phone]. Call in 2 weeks for memory (re)testing once acute issue(s) resolve - order placed in the medical center for follow-up Other I deferred [...] accidents, getting lost. Knows she's here at [facility] due to UTI. States she [...] Healthcare Power ofAttorney: No Financial Power of Data Warehouse Administrator: No Living Will:No Code Status: DNRCCA - [...] 12/07/2022 Performed by Avery Marshall DO at [facility] ENDOSCOPY EYE SURGERY Bilateral early 90's [...] Managment Initial Assessment Date: 03/01/2023 Patient Name: Radah Sandoval : 1945 Patient Information Source of Information: Patient Cognition/Language: WFL - Within Functional Limits Permission given to speak with patient traffic representative/caregiver as indicated: Yes Confirmation of Payer with patient/family: Yes Payer Name: [employer] Dewart: No Confirmation of Primary Care Physician: Confirmed [...] Prescription Coverage: Yes Pharmacy Used: [facility] Medication Management: Independent Transportation/Shopping: Independent Transportation Mode: [...] recommendations communicated to primary service I used Tbricks messaging to message Dr. Finch on 03/01/23 at 12:35 to notify that geriatrics consult note has been completed and to page or call my personal cell with any questions. IQ [id number] Note* Care Coordination - Laura Jackson RN - 03/01/2023 10:14 AM EDT Care Managment Initial Assessment Date: 03/01/2023 Patient Name: Radha Sandoval : 1945 Patient Information Source of Information: Patient Cognition/Language: WFL - Within Functional Limits Permission given to speak with patient traffic representative/caregiver as indicated: Yes Confirmation of Payer with patient/family: Yes Payer Name: [employer] Dewart: No Confirmation of Primary Care Physician: Confirmed [...] Prescription Coverage: Yes Pharmacy Used: [facility] Medication Management: Independent Transportation/Shopping: Independent Transportation Mode: [...] in SNF but would be able to [facility]. [facility] liaison following, TCC to assist and follow as needed. Laura Jackson RN [employer] [id number] Consult note* Michelle Valle RN - 03/01/2023 9:33 AM EDT Associated Order(s): IP CONSULT TO SUPERVISOR SILVERING DEPARTMENT This patient is not a new diabetic [...] associated supplies are needed. Thank you. Elder MUÑOZ,BSN,[facility] HospitalKrirfv95-90-7114 Consult note* Jelly Paz, HEEL BOOM OPERATOR - CUSTOMER PROFESSIONAL - 03/01/2023 8:03 AM EDTAssociated Order(s): IP CONSULT TO ENDOCRINOLOGY Department of Internal Medicine Division of Endocrinology, Diabetes, & Metabolism Endocrinology Note Patient Name: Radha Sandoval : 1945 AGE: 77 y.o. Room/Bed: [facility]/[address] Admission Date: 02/28/2023 Visit Date: 03/01/2023 Reason for Endocrine Consult: DM-Uncontrolled Provider/Team Requesting Consult: Dr. Finch PCP: Shiv Lopez MD Outpt Logging Operations Inspector: No ASSESSMENT: Type II diabetes with hyperglycemia, with filler leaf cutter long insulin use Postoperative hypothyroidism PLAN: Humalog 6 [...] diagnosis. She has been having diarrhea in 2794-3728, smt severe Glimepiride- started in 2015 Trulicity [...] CHOLHDLRATIO 4 02/16/2021 No results found for: [id number] Lab Results Component Value Date TSH 0.03 (L) 02/27/2023 Radiology reportsas per the Radiologist Radiology: CT abdomen pelvis wo IV contrast Result Date: 02/28/2023 Patient Name: RAD[facility] 1945 [id number] ExamDate/Time: 02/28/2023 13:07 Procedure: CT ABDOMEN PELVIS [...] 12/07/2022 Performed by Avery Marshall DO at [facility] ENDOSCOPY EYE SURGERY Bilateral early 90's [...] state/prognosis on the date of this note. [facility] HospitalKcllcc75-27-5563 NoteProblem: Pain - Adult Goal: Verbalizes/displays adequate comfort level or baseline comfort level Outcome: Progressing Problem: Safety - Adult Goal: Free from fall injury [facility] Plan of care note* Care Plan - Anaya Carr RN - 02/28/2023 6:10 PM EDT Problem: Pain - Adult Goal: Verbalizes/displays adequate comfort level or baseline comfort level Outcome: Progressing Problem: Safety - Adult Goal: Free from fall injury Outcome: Progressing [facility] HospitalSjbasg89-69-8061 History and physical note* Gabrielle Finch MD [...] 12/07/2022 Performed by Avery Marshall DO at [facility] ENDOSCOPY EYE SURGERY Bilateral early ' [...] None Comment: W/ UNTIL HIS ADMITTANCE TO SKILLED NURSING Other Topics Concern Not on file Social [...] Mental illness Mother GHANSHYAMRENEE COLEY Depression Mother GHANSHYAM VIANCA Heart disease [...] tablet 0 ergocalciferol (Vitamin D-2) 1.25 MG (03453 UT) capsule Take 1 capsule (1.25 mg) [...] Information Primary Emergency Contact: Angel Roger Address: [address] Mobile Relation: Child Code status: Prior [...] H&P to the patient's PCP. Thank you. [facility]09-12-2023 NoteAttending History and Physical Admit Date: 02/28/2023 [...] 12/07/2022 Performed by Avery Marshall DO at [facility] ENDOSCOPY EYE SURGERY Bilateral early ' [...] None Comment: W/ UNTIL HIS ADMITTANCE TO SKILLED NURSING Other Topics Concern Not on file Social [...] tablet 0 ergocalciferol (Vitamin D-2) 1.25 MG (45291 UT) capsule Take 1 capsule (1.25 mg) [...] (150 mcg) by m (more content not included)...[facility]09-12-2023 History and physical note* Gabrielle Finch [...] 12/07/2022 Performed by Avery Marshall DO at [facility] ENDOSCOPY EYE SURGERY Bilateral early ' [...] None Comment: W/ UNTIL HIS ADMITTANCE TO SKILLED NURSING Other Topics Concern Not on file Social [...] Mental illness Mother GHANSHYAMRENEE COLEY Depression Mother GHANSHYAM VIANCA Heart disease [...] tablet 0 ergocalciferol (Vitamin D-2) 1.25 MG (74394 UT) capsule Take 1 capsule (1.25 mg) [...] Information Primary Emergency Contact: Angel Roger Address: [address] Mobile Relation: Child Code status: Prior [...] patient's PCP. Thank you. documented in this [facility]09-12-2023 Emergency department Note* Alexander Whaley MD [...] 12/07/2022 Performed by Avery Marshall DO at [facility] ENDOSCOPY EYE SURGERY Bilateral early LUNG [...] shoulder pain ergocalciferol (Vitamin D-2) 1.25 MG (70263 UT) capsule Take 1 capsule (1.25 mg) [...] None Comment: W/ UNTIL HIS ADMITTANCE TO SKILLED NURSING Social Determinants of Health Financial Resource Strain: [...] min Stress: No Stress Concern Present (02/28/2023) [place] [employer] - Occupational Stress Questionnaire [...] and DIFFERENTIAL DIAGNOSIS/MDM: Vitals: Vitals: 03/01/23 0834 03/01/2334 03/01/2383703/01/232030 BP: 138/57 (!) 159/54 BP Location: [...] tablet 150 mcg (150 mcg Oral Given 03/01/2334) pramipexole (Mirapex) tablet 0.25 mg (0.25 mg [...] Problems Addressed: LING (acute kidney injury) (CMS/HCC) ([facility]): complicated acute illness or injury Pyelonephritis: [...] [BJ] Alexander Whaley MD Diagnoses as of 03/02/2324 Pyelonephritis LING (acute kidney injury) (CMS/HCC) ([facility]) CONSULTS: IP CONSULT TO ENDOCRINOLOGY IP CONSULT TO GERIATRICS IP CONSULT TO SUPERVISOR SILVERING DEPARTMENT PHARMACY TO CONSULT INSOMNIA PROCEDURES: Unless otherwise noted below, none Procedures FINAL IMPRESSION 1. LING (acute kidney injury) (CMS/HCC) ([facility]) 2. Pyelonephritis 3. Polypharmacy 4. Insomnia, unspecified type 5. Pressure ulcer of right buttock, stage [address] ([facility]) DISPOSITION/PLAN DISPOSITION Admit 02/28/2023 03:42:32 PM PATIENT REFERRED TO: [facility] Geriatrics [address] [facility] [address] DISCHARGE MEDICATIONS: Current Discharge Medication List @[facility](9759,[id number]:LAST:1)@ (Please note: Portions of this note were [...] urination. Was recently admitted. documented in this [facility]09-12-2023 Emergency department Triage note* Farrah Londono RN - 02/28/2023 11:28 AM EDT Pt presents for admission per her PCP. Was sent to get kidneys evaluated per pt. Pt endorses lower back pain and burning and pain with urination. Was recently admitted. [facility] HospitalVlmghz72-21-4605 Physician Emergency department Note* Alexander Whaley MD - 02/28/2023 11:28 AM EDT [facility] 1E MED SURG EMERGENCY DEPARTMENT ENCOUNTER [...] 12/07/2022 Performed by Avery Marshall DO at [facility] ENDOSCOPY EYE SURGERY Bilateral early 90' [...] shoulder pain ergocalciferol (Vitamin D-2) 1.25 MG (31719 UT) capsule Take 1 capsule (1.25 mg) [...] None Comment: W/ UNTIL HIS ADMITTANCE TO SKILLED NURSING Social Determinants of Health Financial Resource Strain: [...] min Stress: No Stress Concern Present (02/28/2023) [place] [employer] - Occupational Stress Questionnaire [...] injection 0-12 Units ( SubCUTAneous Not Given 9/13/23 1700) acetaminophen (Tylenol) tablet 650 mg (650 mg Oral Given 03/01/23 0635) Or acetaminophen (Tylenol) suppository 650 mg ( Rectal See Alternative 03/01/23 06) ondansetron ODT (Zofran-ODT) disintegrating tablet 4 mg [...] Problems Addressed: LING (acute kidney injury) (CMS/HCC) ([facility]): complicated acute illness or injury Pyelonephritis: [...] [BJ] Alexander Whaley MD Diagnoses as of 03/02/2324 Pyelonephritis LING (acute kidney injury) (CMS/HCC) ([facility]) CONSULTS: IP CONSULT TO ENDOCRINOLOGY IP CONSULT TO GERIATRICS IP CONSULT TO SUPERVISOR SILVERING DEPARTMENT PHARMACY TO CONSULT INSOMNIA PROCEDURES: Unless otherwise noted below, none Procedures FINAL IMPRESSION 1. LING (acute kidney injury) (CMS/HCC) ([facility]) 2. Pyelonephritis 3. Polypharmacy 4. Insomnia, unspecified type 5. Pressure ulcer of right buttock, stage [address] ([facility]) DISPOSITION/PLAN DISPOSITION Admit 02/28/2023 03:42:32 PM PATIENT REFERRED TO: [facility] Geriatrics [address] [facility] [address] DISCHARGE MEDICATIONS: Current Discharge Medication List @[facility]([id number]:LAST:1)@ (Please note: Portions of this note were completed with a voice recognition program. Efforts were made to edit the dictations but occasionally words and phrases are mis-transcribed.) Form [id number] Alexander Whaley MD (electronically signed) Emergency Medicine Provider Alexander Whaley MD 03/02/23 0025 [facility] HospitalKpynba61-49-9923 Telephone encounter Note* Telephone Encounter - ELSA Arriaza CNP - 02/28/2023 8:30 AM EDT Noted. Patient already notified. See previous TE if needed. [facility] HospitalJxqrfz72-11-2161 Miscellaneous Notes* Telephone Encounter - ELSA Arriaza CNP - 02/28/2023 8:30 AM EDT Noted. Patient already notified. See previous TE if needed. * Telephone Encounter - Imelda Mann RN - 02/28/2023 7:15 AM EDT S: Christine from [employer] [phone] spoke with [facility] nurse regarding critical lab results B: Glucose A: Blood was drawn yesterday. Glucose was 524, resulting this morning. Verified with repeat analysis. The lab work was ordered by Katia Granados CNP. R: Since office is open, called back line and spoke with Katia Schulz's nurse. Result given. No further instructions to the [facility] nurse. Reason for Disposition Lab or radiology calling with CRITICAL test results Protocols used: PCP Call - No Rfykuh-CIKOZ-BK documented in this encounterSAkron Children's HospitalQbycpb85-81-5620 Telephone encounter Note* Telephone Encounter - Imelda Mann RN - 02/28/2023 7:15 AM EDT S: Christine from [employer] [phone] spoke with [facility] nurse regarding critical lab results B: Glucose A: Blood was drawn yesterday. Glucose was 524, resulting this morning. Verified with repeat analysis. The lab work was ordered by Katia Granados CNP. R: Since office is open, called back line and spoke with Katia Schulz's nurse. Result given. No further instructions to the [facility] nurse. Reason for Disposition Lab or radiology calling with CRITICAL test results Protocols used: PCP Call - No Rlzlby-VYXAO-VE [facility] HospitalEwpdnx67-16-3979 Evaluation + Plan note* Assessment & Plan Note - ELSA Arriaza CNP - 02/27/2023 5:18 PM EDTAssociated Problem(s): Diarrhea No fever or chills, abdomen soft. Unknown etiology. Will check CBC and CMP. Consider stool culture if symptoms continue [facility] HospitalWcswrg82-41-4900 Miscellaneous Notes* Assessment & Plan Note - [...] infection we will treat documented in this [facility]09-11-2023 Evaluation + Plan note* Assessment & Plan Note - ELSA Arriaza CNP - 02/27/2023 5:17 PM EDTAssociated Problem(s): Chronic renal insufficiency, stage III (moderate) (HCC) We will check CMP today [facility] HospitalToleis12-53-5212 Evaluation + Plan note* Assessment & Plan Note - ELSA Arriaza CNP - 02/27/2023 5:17 PM EDTAssociated Problem(s): Acute cystitis with hematuria UA positive nitrites and leuks moderate blood, will start antibiotic therapy sent for culture [facility] HospitalFgmtml37-76-1896 Evaluation + Plan note* Assessment & Plan Note - ELSA Arriaza CNP - 02/27/2023 5:17 PM EDTAssociated Problem(s): Hypertension Controlled. Continue amlodipine 10 mg daily and lisinopril 40 mg daily [facility] HospitalRmzgkw82-92-9886 Evaluation + Plan note* Assessment & Plan Note - ELSA Arriaza CNP - 02/27/2023 5:16 PM EDTAssociated Problem(s): Hypothyroidism Will check TSH today due to recent fatigue [facility] HospitalMmrzvi76-54-9330 Evaluation + Plan note* Assessment & Plan Note - ELSA Arriaza CNP - 02/27/2023 5:15 PM EDTAssociated Problem(s): Wound of right buttock Patient has not followed up with wound center upon visualization today wound unchanged, advised to keep area as clean as possible with frequent changes of incontinence pads [facility] HospitalRbhrmn12-72-3880 Evaluation + Plan note* Assessment & Plan Note - ELSA Arriaza CNP - 02/27/2023 5:14 PM EDTAssociated Problem(s): 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 Patient having difficulties with compliance. Continue insulin regimen. Possible increased glucose due to urinary tract infection we will treat [facility] HospitalRlfrqa78-54-3147 History of Present illness Narrative* Magda Lomas [...] her blood sugar today, noted In office yrrti-du-cbku testing 494. Urination Increased frequency, dysuria intermittently. [...] out soon. Has Maximino (son) work in [employer]. He may be able to help her [...] Lopez MD ergocalciferol (Vitamin D-2) 1.25 MG (78826 UT) capsule Take 1 capsule (1.25 mg) [...] mcg) by mouth daily. 01/13/23 04/13/23 Yes KatiaELSA Guzman CNP lisinopril 40 MG tablet Take 1 tablet (40 mg) by mouth daily. 12/08/22 Yes ELSA Arriaza CNP meloxicam (Mobic) 7.5 MG tablet Take 1 tablet (7.5 mg) by mouth daily. 02/07/23 Yes KatiaELSA Guzman CNP PARoxetine (Paxil) 20 MG tablet Take 1 tablet (20 mg) by mouth every morning. 12/08/22 Yes KatiaELSA Guzman CNP potassium chloride CR (K-Tab) 20 MEQ [...] start before December 22, 2022. 12/22/22 02/07/23 ELSA Arriaza CNP insulin aspart (NovoLOG FLEXPEN) [...] CNP 02/27/2023 5:19 PM documented in this encounterSAkron Children's HospitalLiaidk95-74-7646 Evaluation note* Diagnosis Diabetes mellitus due to [...] Diarrhea, unspecified type documented in this encounter [facility] HospitalNkojwn27-95-5209 Telephone encounter Note* Telephone Encounter - Nan [...] seen Protocols used: Diabetes - High Blood Apfhw-DVRTH-RU [facility] HospitalEijuwo19-88-4852 Miscellaneous Notes* Telephone Encounter - Nan Bush RN - 02/23/2023 12:49 PM EDT S: Patient spoke with [facility] nurse regarding High Blood Sugar [...] seen Protocols used: Diabetes - High Blood Puxzk-PYIIY-DM documented in this [facility]08-30-2023 Hospital Discharge instructions* Patient Instructions* Tejal Henry RN - 02/15/2023 12:45 PM EDT Return in [address] Magallanes If you have any questions or concerns, please call our wound center at [phone] or [phone]. Offloading Try to avoid pressure and sheering [...] to help improve healing. documented in this [facility]08-30-2023 [facility] Visit - New Patient Progress Note [...] 12/07/2022 Performed by Avery Marshall DO at [facility] ENDOSCOPY EYE SURGERY Bilateral early ' [...] Rfl: 0 ergocalciferol (Vitamin D-2) 1.25 MG (58576 UT) capsule, Take 1 capsule (1.25 mg) [...] None Comment: W/ UNTIL HIS ADMITTANCE TO SKILLED NURSING Other Topics Concern Not on file Social [...] Blood Pressure Father LATHA (more content not included)...[facility]08-22-2023 Evaluation + Plan note* Assessment & Plan Note - ELSA Arriaza CNP - 02/07/2023 12:51 PM EDTAssociated Problem(s): Chronic left shoulder pain Chronic. Refill mobic. [facility]Jwshdp55-41-7283 Evaluation + Plan note* Assessment & Plan Note - ELSA Arriaza CNP - 02/07/2023 12:51 PM EDTAssociated Problem(s): Wound of right buttock Avoid pressure to area, avoid friction, keep area as dry as possible. Refer to wound clinic. [facility] HospitalPotubv99-61-8649 Miscellaneous Notes* Assessment & Plan Note - ELSA Arriaza CNP - 02/07/2023 12:51 PM EDTAssociated Problem(s): Chronic left shoulder pain Chronic. Refill mobic. * Assessment & Plan Note - ELSA Arriaza CNP - 02/07/2023 12:51 PM EDTAssociated Problem(s): Wound of right buttock Avoid pressure to area, avoid friction, keep area as dry as possible. Refer to wound clinic. documented in this [facility]08-22-2023 History of Present illness Narrative* ELSA [...] Arriaza CNP ergocalciferol (Vitamin D-2) 1.25 MG (32157 UT) capsule Take 1 capsule (1.25 mg) [...] mcg) by mouth daily. 01/13/23 04/13/23 Katia Bridenthal, HEEL BOOM OPERATOR - CUSTOMER PROFESSIONAL lisinopril 40 MG tablet Take 1 tablet (40 mg) by mouth daily. 12/08/22 Katia Rosaline HEEL BOOM OPERATOR - CUSTOMER PROFESSIONAL PARoxetine (Paxil) 20 MG tablet Take 1 tablet (20 mg) by mouth every morning. 12/08/22 Katia Rosaline, HEEL BOOM OPERATOR - CUSTOMER PROFESSIONAL pramipexole (Mirapex) 0.125 MG tablet Take 2 tablets (0.25 mg) by mouth Nightly. 01/13/23 03/14/23 Katia Rosaline, HEEL BOOM OPERATOR - CUSTOMER PROFESSIONAL rosuvastatin (Crestor) 10 MG tablet Take 1 tablet (10 mg) by mouth daily. 12/08/22 Katia Rosaline, HEEL BOOM OPERATOR - CUSTOMER PROFESSIONAL senna-docusate sodium (Senokot-S) 8.6-50 MG tablet Take 1 tablet by mouth daily. 12/13/22 02/11/23 Katia Rosaline HEEL BOOM OPERATOR - CUSTOMER PROFESSIONAL zolpidem (Ambien) 10 MG tablet Take 1 tablet (10 mg) by mouth Nightly as needed for sleep. Do not start before December 22, 2022. 12/22/22 01/21/23 Katia Rosaline HEEL BOOM OPERATOR - CUSTOMER PROFESSIONAL Review of Systems Constitutional: Negative for activity [...] Date of . PHARMACY VERIFIED WITH PATIENT-BRENDA AUGUSTINE. documented in this encounterSAkron Children's HospitalUfbwbn70-35-5011 Telephone encounter Note* Telephone Encounter - Betty Gonzalez MA - 01/25/2023 3:01 PM EDT Patient notified. [facility] HospitalVvzybt15-12-8799 Miscellaneous Notes* Telephone Encounter - Betty Gonzalez [...] EDT S: The patient is calling the [facility] About muscle spasms B: She [...] days Protocols used: Muscle Aches and Body Bbdp-[id number]-KT documented in this encounterSAkron Children's HospitalFqtnvf02-85-8982 Telephone encounter Note* Telephone Encounter - Shiv Lopez MD - 01/25/2023 2:39 PM EDT If the muscle spasms got worse with the muscle relaxer stop the muscle relaxer, I am not sure what else we can do especially if they have been going on for years. We could try quinine. [facility] HospitalAcrnfg76-37-6861 Telephone encounter Note* Telephone Encounter - Colette Poole RN - 01/25/2023 1:23 PM EDT S: The patient is calling the [facility] About muscle spasms B: She [...] days Protocols used: Muscle Aches and Body Doay-EVHKR-EC [facility] HospitalXjtmwg72-20-2582 Telephone encounter Note* Telephone Encounter - ELSA Arriaza CNP - 01/13/2023 11:12 AM EDT Reviewed chart. Refill appropriate. RX sent. [place] [id number] Miscellaneous Notes* Telephone Encounter - ELSA Arriaza [...] 12/08/22, vit D 07/18/2022 documented in this encounterSAkron Children's HospitalBizppa75-01-2004 Telephone encounter Note* Telephone Encounter - Mya Foster MA - 01/13/2023 8:52 AM EDT Prescription Request: Last medication check: 10/25/2022 Last physical exam: 04/26/2022 Last completed appointment: 12/13/22 Next scheduled appointment: 01/25/2023 Last date of refill on this medication: Mirapex 12/13/22, baclofen and synthroid 12/08/22, vit D 07/18/2022 [facility] HospitalPudcua76-81-1393 Telephone encounter Note* Telephone Encounter - ELSA Arriaza CNP - 12/08/2022 5:20 PM EDT Reviewed chart. Refill appropriate. RX sent. [facility] HospitalJlvsjy82-51-3730 Miscellaneous Notes* Telephone Encounter - ELAS Arriaza CNP - 12/08/2022 5:20 PM EDT [...] 90 day 1 refill documented in this encounterSAkron Children's HospitalJbtgbe27-31-7046 Telephone encounter Note* Telephone Encounter - Syl Kumar MA - 12/08/2022 1:53 PM EDT Prescription Request: Last medication check: 10/25/22 Last physical exam: 04/26/22 Next scheduled appointment: 01/25/23 CSA on file (date): 02/02/22 Last urine drug screen: none Last date of refill on this medication Baclofen 10/04/22 30 tablets no refill Levothyroxine 10/04/22 30 day 1 refill Crestor 06/14/22 90 day 1 refill [facility] HospitalFxfxoo45-16-8447 Plan of care note* Care Plan - [...] integrity is maintained or improved Outcome: Completed [facility] HospitalOjnluv03-88-7270 Miscellaneous Notes* Care Plan - Lambert Kaur [...] Please call the Main Endoscopy Dept at [phone] for questions. * Op Note - Avery Marshall DO - 12/07/2022 7:48 AM EDT [facility] Patient Name: Radha Sandoval Procedure Date: 12/07/2022 7:48 AM Gender: Female Date of : 1945 Age: 77 Admit Type: Inpatient Note Status: Finalized Endoscopist: Avery Marshall DO, [id number] Procedure: Colonoscopy Indications: Hematochezia Findings: The perianal [...] immediate complications. Procedure Code(s): --- Professional --- 76486, Colonoscopy, flexible; with removal of tumor(s), polyp(s), or other lesion(s) by snare technique --- Technical --- 28515, Colonoscopy, flexible; with removal of tumor(s), polyp(s), [...] or abscess without bleeding CPT copyright 2021 [employer]. All rights reserved. The codes documented in this report are preliminary and upon ink blender review may be revised to meet current [...] Limits Permission given to speak with patient traffic representative/caregiver as indicated: Yes Confirmation of Payer with patient/family: Yes Payer Name: [employer] Dewart: No Confirmation of Primary Care Physician: Confirmed [...] Prescription Coverage: Yes Pharmacy Used: [facility] Medication Management: Independent Transportation/Shopping: Independent Transportation Mode: [...] needed. Laura Jackson RN documented in this [facility]06-21-2023 Hospital Discharge instructions* Discharge Instr - Activity* Gabrielle Finch MD - 12/07/2022 1:48 PM EDT As tolerated * Discharge Instr - Diet* Gabrielle Finch MD - 12/07/2022 1:49 PM EDT Carb control diet documented in this [address]21-2023 Hospital course Narrative* Gabrielle Finch MD - 12/07/2022 1:30 PM EDT Seen and examined. Full note to follow documented in this [facility]06-21-2023 Note* Care Coordination - Laura Jackson [...] Stay (Days): 2 GMLOS: No GMLOS Documented [facility] HospitalPzxaax97-22-4255 Note* Care Coordination - Laura Jackson RN [...] Stay (Days): 2 GMLOS: No GMLOS Documented [facility] HospitalLjknlv68-91-5372 Note* Perioperative Nursing Note - Ashley Dickens RN - 12/07/2022 9:57 AM EDT POST ENDOSCOPY PROCEDURE TRANSFER REPORT Physician: Dr. Marshall Procedure completed: colonoscopy Specimens obtained: Yes Medications administered: See MAR Findings: see MD report Complications: none Please call the Main Endoscopy Dept at [phone] for questions. [facility] HospitalYamiys54-31-7011 Note* Perioperative Nursing Note - Ashley Dickens RN - 12/07/2022 9:57 AM EDT POST ENDOSCOPY PROCEDURE TRANSFER REPORT Physician: Dr. Marshall Procedure completed: colonoscopy Specimens obtained: Yes Medications administered: See MAR Findings: see MD report Complications: none Please call the Main Endoscopy Dept at [phone] for questions. [facility] HospitalYjpwho56-94-0071 History of Present illness Narrative* Edelmira Hanna - 12/07/2022 7:58 AM EDT Patient has been NPO/ CLRS x3 days without adequate nutrition. Patient referred to RD. * Lani Bolton RCP - 12/06/2022 5:38 PM EDT [facility] Respiratory Care Department Progress Note [...] note were not included. Hospitalist Progress Note 12/06/[id number]: Please secure chat me for patient care issues. [phone]: Please secure chat [facility] Hospitalist for any issues. Subjective: Admit Date: 12/05/2022 PCP: Shiv Lopez MD Room#: B1-148/B1-148 A Interval History: She is weak. Still with bleeding. Not dizzy. She denies chest pain, sob, abdominal pain, nausea, vomiting, diarrhea, constipation, fevers, or chills. Awaiting colonoscopy. D/w pt Adult diet Clear Liquid NPO diet NPO except: Sips of Water with Meds @[email or web address]@ 24HR INTAKE/OUTPUT: Intake/Output Summary (Last 24 hours) [...] Information Primary Emergency Contact: Angel Roger Address: [address] [place] Relation: Child GABRIELLE FINCH MD Division of Hospitalist Medicine [facility] PAGER: Epic chat documented in this [facility]06-21-2023 Note* Op Note - Avery Marshall DO - 12/07/2022 7:48 AM EDT [facility] Patient Name: Radha Sandoval Procedure Date: 12/07/2022 7:48 AM Gender: Female Date of : 1945 Age: 77 Admit Type: Inpatient Note Status: Finalized Endoscopist: Avery Marshall DO, [id number] Procedure: Colonoscopy Indications: Hematochezia Findings: The perianal [...] immediate complications. Procedure Code(s): --- Professional --- 32772, Colonoscopy, flexible; with removal of tumor(s), polyp(s), or other lesion(s) by snare technique --- Technical --- 68583, Colonoscopy, flexible; with removal of tumor(s), polyp(s), [...] or abscess without bleeding CPT copyright 2021 [employer]. All rights reserved. The codes documented in this report are preliminary and upon ink blender review may be revised to meet current compliance requirements. Attending Participation: I personally performed the entire procedure. Avery Marshall DO 12/07/2022 9:46:22 AM This report has been signed electronically. Number of Addenda: 0 Note Initiated On: 12/07/2022 7:48 AM [employer] Phone: 1(820) 398-801906-21-2023 Note* Op Note - Avery Marshall DO - 12/07/2022 7:48 AM EDT [facility] Patient Name: Radha Sandoval Procedure Date: 12/07/2022 7:48 AM Gender: Female Date of : 1945 Age: 77 Admit Type: Inpatient Note Status: Finalized Endoscopist: Avery Marshall DO, [id number] Procedure: Colonoscopy Indications: Hematochezia Findings: The perianal [...] immediate complications. Procedure Code(s): --- Professional --- 44233, Colonoscopy, flexible; with removal of tumor(s), polyp(s), or other lesion(s) by snare technique --- Technical --- 68731, Colonoscopy, flexible; with removal of tumor(s), polyp(s), [...] or abscess without bleeding CPT copyright 2021 [employer]. All rights reserved. The codes documented in this report are preliminary and upon ink blender review may be revised to meet current compliance requirements. Attending Participation: I personally performed the entire procedure. Avery Marshall DO 12/07/2022 9:46:22 AM This report has been signed electronically. Number of Addenda: 0 Note Initiated On: 12/07/2022 7:48 AM [employer] Phone: 1(931) 810-149806-20-2023 Note* Care Coordination - Laura Jackson RN - 12/06/2022 10:36 AM EDT Care Managment Initial Assessment Date: 12/06/2022 Patient Name: Radha Sandoval : 1945 Patient Information Source of Information: Patient Cognition/Language: WFL - Within Functional Limits Permission given to speak with patient traffic representative/caregiver as indicated: Yes Confirmation of Payer [...] Prescription Coverage: Yes Pharmacy Used: [facility] Medication Management: Independent Transportation/Shopping: Independent Transportation Mode: [...] and follow as needed. Laura Jackson RN [facility] HospitalZqchib27-14-3409 Note* Care Coordination - Laura Jackson RN - 12/06/2022 10:36 AM EDT Care Managment Initial Assessment Date: 12/06/2022 Patient Name: Radha Sandoval : 1945 Patient Information Source of Information: Patient Cognition/Language: WFL - Within Functional Limits Permission given to speak with patient traffic representative/caregiver as indicated: Yes Confirmation of Payer [...] Prescription Coverage: Yes Pharmacy Used: [facility] Medication Management: Independent Transportation/Shopping: Independent Transportation Mode: [...] follow as needed. Laura Jackson RN T [facility] HospitalEkuzyn68-52-1702 Consult note* Malcolm Rodriguez MD - 12/06/2022 9:33 AM EDTAssociated Order(s): Inpatient consult to Gastroenterology Images from the original note were not included. GI CONSULTATION Patient: Radha Sandovla : 1945 Primary Care Physician: Shiv Lopez [...] 1 tablet (10 mg) by mouth daily. 4/18/23 ELSA Arriaza CNP ergocalciferol (Vitamin D-2) 1.25 MG (49430 UT) capsule Take 1 capsule (1.25 mg) [...] 12/05/2022 Patient Name: RADHA SANDOVAL : 1945 [facility]#: [id number] ExamDate/Time: 12/05/2022 15:39 Procedure: CT ABDOMEN PELVIS [...] the patient/guardian/responsible accompanying adult who is agreeable. [employer] Work Phone: 1(334) 681-438806-20-2023 Consult note* Malcolm Rodriguez MD - 12/06/2022 [...] Arriaza CNP ergocalciferol (Vitamin D-2) 1.25 MG (61566 UT) capsule Take 1 capsule (1.25 mg) [...] 12/05/2022 Patient Name: RADHA SANDOVAL : 1945 [facility]#: [id number] ExamDate/Time: 12/05/2022 15:39 Procedure: CT ABDOMEN PELVIS [...] adult who is agreeable. documented in this [facility]06-19-2023 Emergency department Note* Abby Kahn RN - 12/05/2022 8:30 PM EDT Provided pt with water and nomi Kahn RN 12/05/222200 [facility] HospitalXhennw42-62-2401 Emergency department Note* Abby Kahn RN - [...] IV that was placed in R AC. [facility] called to place a new IV Abby Kahn RN 12/05/22 1403 * ANASTASIA Molina - 12/05/2022 10:43 AM EDT [facility] ED eMERGENCY dEPARTMENT eNCOUnter Pt Name: [...] mouth daily. ERGOCALCIFEROL (VITAMIN D-2) 1.25 MG (42020 UT) CAPSULE Take 1 capsule (1.25 mg) [...] None Comment: W/ UNTIL HIS ADMITTANCE TO SKILLED NURSING Social Determinants of Health Financial Resource Strain: [...] Abnormal Glucose 215 (*) Narrative: Performed by: [facility], [address] [place] [id number] CLIA ID: [id number] HEPATIC FUNCTION PANEL - Normal BILIRUBIN, TOTAL [...] 75 mL (75 mL IntraVENous Given 12/05/22 4319) Medical Decision Making Problems Addressed: Acute lower [...] MEDICATIONS: New Prescriptions No medications on file @[facility]([id number]:LAST:1)@ (Please note: Portions of this note were completed with a voice recognition program. Efforts were made to edit thedictations but occasionally words and phrases are mis-transcribed.) Form v2016.J.5-cn ANASTASIA MOLINA (electronically signed) Emergency Medicine Provider ANASTASIA Molina 12/05/22 1748 * Anusha Velarde MD - 12/05/2022 10:43 AM EDT Emergency Department Encounter [facility] ED Patient: Radha Sandoval : 1945 [...] hx of GI bleed. documented in this [facility]06-19-2023 Nurse Note* Sis Archibald RN - 12/05/2022 8:[address] Durbin requesting 18g U/S IV placed d/t GIB. No suitable options for an 18g PIV to be placed at this time. Pt also refusing for Left arm to be used. Dr. Hammer notified. [facility] HospitalSpvtxn12-41-1316 Nurse Note* Sis Archibald RN - 12/05/2022 8:[address] Durbin requesting 18g U/S IV placed d/t GIB. No suitable options for an 18g PIV to be placed at this time. Pt also refusing for Left arm to be used. Dr. Hammer notified. documented in this [facility]06-19-2023 Emergency department Note* Abby Kahn RN - 12/05/2022 6:[address] Velarde notified pt has filled x 3 bedpan with bloody stools and clots Abby Kahn RN 12/05/22 1812 [facility] HospitalLgxhdk37-52-1701 Emergency department Note* Abby Kahn RN - 12/05/2022 5:10 PM EDT Ashley (ANASTASIA) made aware that pt has had 2 large bloody BM's at this point Abby Kahn RN 12/05/22 1733 [facility] HospitalSjjkaa31-70-2897 History and physical note* Bertram Durbin MD [...] None Comment: W/ UNTIL HIS ADMITTANCE TO SKILLED NURSING Other Topics Concern Not on file Social [...] tablet 0 ergocalciferol (Vitamin D-2) 1.25 MG (27356 UT) capsule Take 1 capsule (1.25 mg) [...] Information Primary Emergency Contact: Angel Roger Address: [address] [place] Relation: Child Code status: No [...] H&P to the patient's PCP. Thank you. [employer] Phone: [phone] 128-785806-19-2023 History and physical note* Bertram Durbin MD [...] None Comment: W/ UNTIL HIS ADMITTANCE TO SKILLED NURSING Other Topics Concern Not on file Social [...] tablet 0 ergocalciferol (Vitamin D-2) 1.25 MG (10980 UT) capsule Take 1 capsule (1.25 mg) [...] Information Primary Emergency Contact: Angel Roger Address: [address] [place] Relation: Child Code status: No [...] patient's PCP. Thank you. documented in this encounterSAkron Children's HospitalFassfq44-15-1360 Emergency department Note* Abby Kahn RN - 12/05/2022 4:58 PM EDT Pt had large bloody BM Abby Kahn RN 12/05/22 9658 [facility] HospitalVzvnzc92-78-9066 Emergency department Note* Abby Kahn RN - 12/05/2022 2:[address] stated they were unable to use US IV that was placed in [facility]. [facility] called to place a new IV Abby Kahn RN 12/05/22 1403 [place] [address]Psvqba06-95-2705 Emergency department Triage note* Maday Borja RN - 12/05/2022 10:43 AM EDT Pt reports bright red blood with blood clots in her brief this AM, denies use of blood thinners or hx of GI bleed. [place] [id number] Physician Emergency department Note* ANASTASIA Molina - 12/05/2022 10:43 AM EDT [facility] ED eMERGENCY dEPARTMENT eNCOUnter Pt Name: [...] mouth daily. ERGOCALCIFEROL (VITAMIN D-2) 1.25 MG (62173 UT) CAPSULE Take 1 capsule (1.25 mg) [...] None Comment: W/ UNTIL HIS ADMITTANCE TO SKILLED NURSING Social Determinants of Health Financial Resource Strain: [...] Abnormal Glucose 215 (*) Narrative: [facility], [address] [place] [id number] CLIA ID: [id number] HEPATIC FUNCTION PANEL - Normal BILIRUBIN, TOTAL [...] MEDICATIONS: New Prescriptions No medications on file @[facility]([id number]:LAST:1)@ (Please note: Portions of this note were completed with a voice recognition program. Efforts were made to edit thedictations but occasionally words and phrases are mis-transcribed.) Form v2016.J.5-cn ANASTASIA MOLINA (electronically signed) Emergency Medicine Provider ANASTASIA Molina 12/05/22 1748 [facility] HospitalNlvhwd77-48-8583 Physician Emergency department Note* Anusha Velarde MD - 12/05/2022 10:43 AM EDT Emergency Department Encounter [facility] ED Patient: Radha Sandoval : 1945 [...] MD 12/05/22 1638 Anusha Velarde MD 12/05/221851 [employer] Phone: [phone] Telephone encounter Note* Telephone Encounter - ELSA Arriaza CNP - 12/05/2022 9:44 AM EDT Noted. Agree with disposition. [employer]Whndqm13-57-1089 Miscellaneous Notes* Telephone Encounter - ELSA Arriaza [...] drive her, states she will go to [facility]. No further needs at this time. Patient instructed to call back with new or worsening symptoms. Advised to call 911 if she worsens or feels like she might pass out. Patient verbalizes understanding. Reason for Disposition SEVERE rectal bleeding (large blood clots; constant or on and off bleeding) Protocols used: Rectal Kyhpnjvv-EMURY-TG documented in this encounterSAkron Children's HospitalYcovex77-08-4390 Telephone encounter Note* Telephone Encounter - Sruthi [...] drive her, states she will go to [facility]. No further needs at this time. Patient instructed to call back with new or worsening symptoms. Advised to call 911 if she worsens or feels like she might pass out. Patient verbalizes understanding. Reason for Disposition SEVERE rectal bleeding (large blood clots; constant or on and off bleeding) Protocols used: Rectal Artcgbfi-HGMWG-JS [facility] HospitalSkykab75-47-2584 Telephone encounter Note* Telephone Encounter - Mya Foster MA - 10/05/2022 3:55 PM EDT ----- Message from Katia Granados APRN - JORGE sent at 10/05/2022 3:52 PM EDT ----- Hemoglobin A1c 9- recommend increasing novolog dose by 2 units- (from 14 to 16), send glucose readings to office in 1 week. Notified, can you please update sig? Thanks! [facility] HospitalCpvprz94-83-5312 Miscellaneous Notes* Telephone Encounter - Mya Foster MA - 10/05/2022 3:55 PM EDT ----- Message from Katia Granados APRN - CUSTOMER PROFESSIONAL sent at 10/05/2022 3:52 PM EDT ----- Hemoglobin A1c 9- recommend increasing novolog dose by 2 units- (from 14 to 16), send glucose readings to office in 1 week. Notified, can you please update sig? Thanks! documented in this encounterSAkron Children's HospitalOxfnwb55-50-3352 Telephone encounter Note* Telephone Encounter - Stefani [...] prior to picking up the medication: Yes [facility] HospitalRbltoj36-22-2373 Miscellaneous Notes* Telephone Encounter - Stefani Abraham [...] up the medication: Yes documented in this encounterSAkron Children's HospitalOlvgiz70-38-9207 Telephone encounter Note* Telephone Encounter - Shiv Lopez MD - 07/26/2022 8:29 AM EST Rx sent [facility] HospitalYqbdmi97-85-0194 Miscellaneous Notes* Telephone Encounter - Shiv Lopez MD - 07/26/2022 8:29 AM EST Rx sent * Addendum Note - Mya Foster MA - 07/26/2022 7:57 AM ESTAddended by: MYA FOSTER on: 07/26/2022 07:57 AM Modules accepted: Orders * Telephone Encounter - Georgette Kushal - 07/26/2022 7:47 AM EST Ordering [...] (see medication tab): 05/03/2022 documented in this [facility]02-07-2023 Note* Addendum Note - Mya Foster MA - 07/26/2022 7:57 AM ESTAddended by: MYA FOSTER on: 07/26/2022 07:57 AM Modules accepted: Orders [facility] HospitalCuxryr48-83-7838 Note* Addendum Note - Mya Foster MA - 07/26/2022 7:57 AM ESTAddended by: MYA FOSTER on: 07/26/2022 07:57 AM Modules accepted: Orders [facility] HospitalSzefpu91-70-4376 Telephone encounter Note* Telephone Encounter - Georgette [...] of last refill (see medication tab): 05/03/2022 [facility] HospitalCjituf27-24-1969 Telephone encounter Note* Telephone Encounter - ELSA Arriaza CNP - 07/18/2022 9:56 AM EST Reviewed chart. Refill appropriate. RX sent. [facility] HospitalOluqmq27-61-4324 Miscellaneous Notes* Telephone Encounter - ELSA Arriaza CNP - 07/18/2022 9:56 AM EST Reviewed chart. Refill appropriate. RX sent. * Telephone Encounter - Magda Lomas - 07/18/2022 9:39 AM EST Prescription Request: Last medication check: 06/30/22 Last physical exam: 04/26/22 Next scheduled appointment: 09/30/22 Last date of refill on this medication 06/14/22 documented in this encounterSAkron Children's HospitalNtfshz68-01-7390 Telephone encounter Note* Telephone Encounter - Magda Lomas - 07/18/2022 9:39 AM EST Prescription Request: Last medication check: 06/30/22 Last physical exam: 04/26/22 Next scheduled appointment: 09/30/22 Last date of refill on this medication 06/14/22 [facility] HospitalMnklir80-05-9929 Telephone encounter Note* Telephone Encounter - Ashley Haider MA - 07/13/2022 1:06 PM EST Attempted to call patient to help her schedule an appt - the patient has a recording that says she is not accepting calls [facility] HospitalPzhlnd73-14-2604 Miscellaneous Notes* Telephone Encounter - Ashley Haider [...] her 07/08 appt. Please advise. Office Name: [facility] Physician Orthopedics Medication Refills need, if any: N/A Medication Name: N/A documented in this encounterSAkron Children's [id number] Telephone encounter Note* Telephone Encounter - Devendra Loera MD - 07/13/2022 11:10 AM EST Okay to reschedule [facility] [employer] Phone: [phone] 658-560201-23-2023 Telephone encounter Note* Telephone Encounter - ELSA Arriaza CNP - 07/11/2022 2:11 PM EST Reviewed chart. Refill appropriate. RX sent. [id number] Miscellaneous Notes* Telephone Encounter - ELSA Arriaza CNP - 07/11/2022 2:11 PM EST Reviewed chart. Refill appropriate. RX sent. * Telephone Encounter - Mya Foster MA - 07/11/2022 2:02 PM EST Prescription Request: Last medication check: 08/05/21 Last physical exam: 04/26/22 Next scheduled appointment: 09/29/2022 Last date of refill on this medication 02/28/2022 documented in this encounterSAkron Children's [id number] Telephone encounter Note* Telephone Encounter - Mya Foster MA - 07/11/2022 2:02 PM EST Prescription Request: Last medication check: 08/05/21 Last physical exam: 04/26/22 Next scheduled appointment: 09/29/2022 Last date of refill on this medication 02/28/2022 [facility]Orunsw00-03-2651 Telephone encounter Note* Telephone Encounter - Mya Foster MA - 07/11/2022 9:46 AM EST [address]. [id number] Miscellaneous Notes* Telephone Encounter - Mya Foster [...] to answer question Protocols used: Falls and Bziwstq-OJRVL-OB documented in this encounterSAkron Children's HospitalTlwqth76-46-9367 Telephone encounter Note* Telephone Encounter - Shiv Lopez MD - 07/08/2022 12:30 PM EST Rx sent for tramadol, she can take this with Tylenol, this is a one-time prescription and cannot berefilled because we are not chronic pain management physicians. [facility] HospitalAdppzw76-80-1053 Miscellaneous Notes* Telephone Encounter - Shiv Lopez MD - 07/08/2022 12:30 PM EST Rx sent for tramadol, she can take this with Tylenol, this is a one-time prescription and cannot berefilled because we are not chronic pain management physicians. * Telephone Encounter - Christine Haas RN - 07/08/2022 11:16 AM EST S: Patient called the [facility] access [place] with complaint of fell last night on [...] to answer question Protocols used: Falls and Utobmva-XDVPM-KQ documented in this [facility]01-20-2023 Telephone encounter Note* Telephone Encounter - Christine Haas RN - 07/08/2022 11:16 AM EST S: Patient called the [facility] access [facility] with complaint of fell last night on [...] to answer question Protocols used: Falls and Vpiyesz-UAGFB-RU [facility]01-19-2023 Telephone encounter Note* Telephone Encounter - Katie Bernardo - 07/07/2022 5:48 PM EST Name of Caller: Radha Contact Reason for Appointment: Pt states that she would like to r/s her 07/08 appt. Please advise. Office Name: [facility] Physician Orthopedics Medication Refills need, if any: N/A Medication Name: N/A [facility]01-12-2023 Evaluation + Plan note* Assessment & Plan Note - Shiv Lopez MD - 06/30/2022 12:54 PM ESTAssociated Problem(s): Hyperlipidemia with target LDL less than 70 Controlled, continue rosuvastatin 10 mg daily [facility]01-12-2023 Evaluation + Plan note* Assessment & Plan Note - Shiv Lopez MD - 06/30/2022 12:54 PM ESTAssociated Problem(s): Moderate episode of recurrent major depressive disorder (HCC) Stable, continue Paxil 20 mg daily [address]Ghhanh19-63-3492 Evaluation + Plan note* Assessment & Plan Note - Shiv Lopez MD - 06/30/2022 12:54 PM ESTAssociated Problem(s): Chronic right-sided low back pain with right-sided sciatica Referral to orthopedic surgeon [facility] HospitalRhnlny39-75-3151 Evaluation + Plan note* Assessment & Plan Note - Shiv Lopez MD - 06/30/2022 12:54 PM ESTAssociated Problem(s): Hypothyroidism Controlled, continue levothyroxine 150 mcg daily [facility] HospitalUmloqy05-57-1238 Miscellaneous Notes* Assessment & Plan Note - [...] current dose of Ambien documented in this [facility]01-12-2023 Evaluation + Plan note* Assessment & Plan Note - Shiv Lopez MD - 06/30/2022 12:53 PM EST Associated Problem(s): Vitamin D deficiency Stable, continue vitamin D 50,000 units weekly [facility] HospitalVjajrk62-57-2990 Evaluation + Plan note* Assessment & Plan Note - Shiv Lopez MD - 06/30/2022 12:53 PM ESTAssociated Problem(s): Uncontrolled type 2 diabetes mellitus with hyperglycemia (HCC) Uncontrolled, continue NovoLog 14 units before each meal. 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 [facility] HospitalWaxeui91-99-5915 Evaluation + Plan note* Assessment & Plan Note - Shiv Lopez MD - 06/30/2022 12:52 PM ESTAssociated Problem(s): DDD (degenerative disc disease), lumbar This is a chronic issue we will send her to spine surgery for further evaluation. [facility] HospitalLcaaoo16-36-6908 Evaluation + Plan note* Assessment & Plan Note - Shiv Lopez MD - 06/30/2022 12:51 PM ESTAssociated Problem(s): Hypertension Blood pressure was initially elevated, recheck was normal, continue lisinopril 40 mg daily and amlodipine 10 mg daily [facility] HospitalPsbjjr14-76-4539 Evaluation + Plan note* Assessment & Plan Note - Shiv Lopez MD - 06/30/2022 12:51 PM ESTAssociated Problem(s): Restless legs syndrome (RLS) Stable on current dose of Mirapex 2 mg nightly [facility] HospitalOtwgzd78-29-5398 Evaluation + Plan note* Assessment & Plan Note - Shiv Lopez MD - 06/30/2022 12:51 PM ESTAssociated Problem(s): Insomnia Stable on current dose of Ambien [facility] HospitalGcrzja01-98-4003 History of Present illness Narrative* Syl Kumar MA - 06/30/2022 8:15 AM EST Patient verified by last name and date of . Patient wants a manager hotel in the room during during the visit. no Kilnman na * Shiv Lopez MD - 06/30/2022 [...] unspecified whether stage 3a or 3b CKD ([facility]) Assessment & Plan: Uncontrolled, kidney function is stable, continue NovoLog 14 units before each meal. 10. DDD (degenerative disc disease), lumbar Assessment & Plan: This is a chronic issue we will send her to spine surgery for further evaluation. Orders: - [facility] Orthopedics Spine - [place] Cecelia/Colby 11. Chronic right-sided low back pain with right-sided sciatica Assessment & Plan: Referral to orthopedic surgeon Orders: - [facility] Orthopedics Spine - [place] Cecelia/Colby Follow up in about 3 months [...] MD 06/30/2022 12:55 PM documented in this [facility]* Diagnosis Localized edema Edema documented [...] of gastrointestinal tract documented in this encounter [facility] [place] [facility]* Diagnosis Hyperlipidemia with target LDL less than 70 Other and unspecified hyperlipidemia Acquired hypothyroidism Unspecified hypothyroidism Chronic left shoulder pain Pain in joint, shoulder region documented in this encounter [facility] [place] [facility]* Diagnosis Vitamin D deficiency Acquired hypothyroidism Unspecified hypothyroidism Chronic left shoulder pain Pain in joint, shoulder region Restless legs syndrome (RLS) documented in this encounter [facility] [place] [facility]* Diagnosis Wound of right buttock, subsequent encounter- Primary Chronic left shoulder pain Pain in joint, shoulder region documented in this encounter [facility] [place] [facility]* Diagnosis LING (acute kidney injury) ([facility]) ([facility])- Primary Pyelonephritis Unspecified pyelonephritis LING (acute kidney injury) ([facility]) ([facility]) Polypharmacy Issue of repeat prescriptions Insomnia, unspecified type Pressure ulcer of right buttock, stage [address]) Declining functional status Weakness Other malaise and fatigue Insomnia Insomnia, unspecified Anxiety Anxiety state, unspecified Polypharmacy Issue of repeat prescriptions DNR (do not resuscitate) Other specified conditions influencing health status Complicated UTI (urinary tract infection) documented in this encounter [facility]* Diagnosis Onset Date Resolution Status Acquired lymphedema acute Debility acute Depression acute Diabetes mellitus acute Edema acute Hypothyroidism acute Insomnia acute Pain in left toe(s) acute Pain in right toe(s) acute Restless leg syndrome acute Rheumatoid arthritis acute Tinea unguium acute Type 2 diabetes mellitus with diabetic polyneuropathy acute Urinary tract infection acut e Hypertension chronic [facility] Work Phone: Evaluation note* Diagnosis Onset [...] Urinary tract infection reso lved [facility] Work Phone: Evaluation noteNo assessment information available [facility] Work Phone: Evaluation note* Diagnosis Uncontrolled [...] with right-sided sciatica documented in this encounter [facility]* Diagnosis Trauma- Primary Injury, other and unspecified, unspecified site documented in this encounter [facility]* Diagnosis Trauma- Primary Injury, other and unspecified, unspecified site documented in this encounter [facility] note* Diagnosis Vitamin D deficiency [facility] Discharge instructions Additional Instructions Discharge to [facility] 03/18/2023, intermediate, Part B therapies.[facility] Work Phone: Instructions* Attachments The following attachments cannot be sent through Care Everywhere. * Acute Cystitis Discharge Instructions (Angolan) documented in this encounterSchip Harmon for referral (narrative)* Consultation (Urgent) - Pending Review Specialty Diagnoses / Procedures Referred By Varun irizarry Referred To Contact Wound Care Diagnoses Wound of right buttock, subsequent encounter Procedures NE OFFICE/OUTPATIENT [facility] 60-74 MINUTES Katia Granados APRN - CNP [address] [facility] [place] [address] [facility] [address] [place] [address] Referral ID Status Reason Start Date Expiration Date Visits Requested Visits Authorized [id number] Pending Review Specialty Services Required 02/07/2023 02/07/2024 1 1 Rogelio Harmon for referral (narrative)* Consultation (Routine) - Pending Review Specialty Diagnoses / Procedures Referred By Varun irizarry Referred To Contact Orthopedic Surgery: Spine Surgery / Orthopedic Surgery Diagnoses DDD (degenerative disc disease), lumbar Chronic right-sided low back pain with right-sided sciatica Procedures NE OFFICE/OUTPATIENT NEW HIGH MDM 60-74 MINUTES Shiv Lopez MD [address], [place] [address] [facility] [address] [place] [address] Referral ID Status Reason Start Date Expiration Date Visits Requested Visits Authorized [id number] Pending Review Specialty Services Required 06/30/2022 12/27/2022 1 1 [facility] for referral (narrative)No reason for referral information availableWGuernsey [facility] Work Phone: Summary Purpose Family History No Family History Records Found Relationship Condition Age at Onset Recorded Date/T amelia Not Specified Cardiac disease Unknown Malignant neoplasm Unknown Advance Directives No Advanced Directives Records FoundDocuments on File Type Date Recorded Patient Membership Counselor Expl anation ACP-Advance Directive ACP-Power of Data Warehouse Administrator Latest Code Status on File Code Status Date Activated Date Inactivated Comments Full Code 01/20/2019 3:56 AM 01/23/2019 7:06 PM Full Code 01/20/2019 3:56 AM 01/20/2019 3:56 AM Documents on File Type Date Recorded Patient Membership Counselor Expl anation Advance Directives and Living Will Power of Data Warehouse Administrator Documents on File Type Date Recorded Patient Membership Counselor Expl anation ACP-Advance Directive ACP-Power of Data Warehouse Administrator Latest Code Status on File Code Status [...] No March 06, 2023 4:25pm Power of Data Warehouse Administrator No February 4:25pm Advance Directive Response Recorded Date/ Time Living Will No March 06, 2023 3:25pm Power of Data Warehouse Administrator No February 3:25pm Documents on File Type Date Recorded Patient Membership Counselor Expl anation DNR (Do Not Resuscitate) 03/06/2023 [...] sent through Care Everywhere. * Lacerations: Stitches (Angolan) * Head Injury: Closed: General Info (Angolan) * Cervical Strain (Angolan) documented in this encounter Assessments Diagnosis Injury of head, initial encounter- Primary Laceration of scalp, initial encounter Strain of neck muscle, initial encounter Reason for Referral Status Reason Specialty Diagnoses / Procedures Referre d By Contact Referred To Contact Closed Cardiology Diagnoses Localized edema Procedures ECHO Complete 2D W Doppler W Color Shiv Lopez MD [address] [place] [address], [place] [address] Specialty Diagnoses / Procedures Referred By Contac t Referred To Contact Gabrielle Finch MD [address] [place] [address] Referral ID Status Reason Start Date Expiration Date Visits Re quested Visits Authorized [id number] Closed 1 1 Referral ID Status Reason Start Date Expiration Date Visits Re quested Visits Authorized [id number] Closed 1 1 Referral ID Status Reason Start Date Expiration Date Visits Re quested Visits Authorized [id number] Closed 1 1 Specialty Diagnoses / Procedures Referred By Contac t Referred To Contact Wound Care Diagnoses Pressure ulcer of right buttock, stage 3 (HCC) Procedures NE OFFICE/OUTPATIENT NEW HIGH MDM 60-74 MINUTES Rosalinda Burrows, ELSA - CUSTOMER PROFESSIONAL [address] [place] [address] Referral ID Status Reason Start Date Expiration Date Visits Requested Visits Authorized [id number] Pending Review Specialty Services Required 03/01/2023 02/29/2024 1 1 Specialty Diagnoses / Procedures Referred By Contac t Referred To Contact Geriatric Medicine Diagnoses Polypharmacy Insomnia, unspecified type Procedures NE OFFICE/OUTPATIENT NEW HIGH MDM 60-74 MINUTES Adam Holt MD [address] [address] [facility] [address] [facility] [address] [place] [address] Referral ID Status Reason Start Date Expiration Date Visits Requested Visits Authorized [id number] Pending Review Specialty Services Required 03/01/2023 02/29/2024 1 1 Chief Complaint and Reason for Visit Chief Complaint UTI/PRESSURE WOUND Reason for Visit Acquired lymphedema Debility Depression Diabetes mellitus Edema Hypothyroidism Insomnia Pain in left toe(s) Pain in right toe(s) Restless leg syndrome Rheumatoid arthritis Tinea unguium Type 2 diabetes mellitus with diabetic polyneuropathy Urinary tract infection Hypertension Chief Complaint UTI/PRESSURE WOUND SKILLED NURSING LAB WORK SKILLED NURSING LAB WORK Reason for Visit Acquired lymphedema Debility Depression Diabetes mellitus Edema Hypothyroidism Insomnia Restless leg syndrome Rheumatoid arthritis Type 2 diabetes mellitus with diabetic polyneuropathy Hypertension Pain in left toe(s) Pain in right toe(s) Tinea unguium Urinary tract infection Chief Complaint UTI/PRESSURE WOUND SKILLED NURSING LAB WORK SKILLED NURSING LAB WORK SKILLED NURSING LABWORK Reason for Visit Acquired lymphedema Debility Depression Diabetes mellitus Edema Hypothyroidism Insomnia Restless leg syndrome Rheumatoid arthritis Type 2 diabetes mellitus with diabetic polyneuropathy Hypertension Pain in left toe(s) Pain in right toe(s) Tinea unguium Urinary tract infection Chief Complaint UTI/PRESSURE WOUND SKILLED NURSING LAB WORK SKILLED NURSING LAB WORK SKILLED NURSING LABWORK SKILLED NURSING LAB WORK Reason for Visit Acquired lymphedema Debility Depression Diabetes mellitus Edema Hypothyroidism Insomnia Restless leg syndrome Rheumatoid arthritis Type 2 diabetes mellitus with diabetic polyneuropathy Hypertension Pain in left toe(s) Pain in right toe(s) Tinea unguium Urinary tract infection Chief Complaint UTI/PRESSURE WOUND SKILLED NURSING LAB WORK SKILLED NURSING LAB WORK SKILLED NURSING LABWORK SKILLED NURSING LAB WORK LABWORK Reason for Visit Acquired lymphedema Debility Depression Diabetes mellitus Edema Hypothyroidism Insomnia Restless leg syndrome Rheumatoid arthritis Type 2 diabetes mellitus with diabetic polyneuropathy Hypertension Pain in left toe(s) Pain in right toe(s) Tinea unguium Urinary tract infection Chief Complaint UTI/PRESSURE WOUND SKILLED NURSING LAB WORK SKILLED NURSING LAB WORK SKILLED NURSING LABWORK SKILLED NURSING LAB WORK SKILLED NURSING LAB WORK LABWORK Reason for Visit Acquired lymphedema Debility Depression Diabetes mellitus Edema Hypothyroidism Insomnia Restless leg syndrome Rheumatoid arthritis Type 2 diabetes mellitus with diabetic polyneuropathy Hypertension Pain in left toe(s) Pain in right toe(s) Tinea unguium Urinary tract infection Chief Complaint SKILLED NURSING LABWORK SKILLED NURSING LAB WORK SKILLED NURSING LAB WORK LABWORK SKILLED NURSING LAB WORK SKILLED NURSING LAB WORK LABWORK SKILLED NURSING LAB WORK LABWORK Chief Complaint SKILLED NURSING LAB WOR K SKILLED NURSING LAB WORK LABWORK SKILLED NURSING LAB WORK SKILLED NURSING LAB WORK LABWORK SKILLED NURSING LAB WORK LABWORK LABWORK Chief Complaint SKILLED NURSING LAB WOR K LABWORK SKILLED NURSING LAB WORK SKILLED NURSING LAB WORK LABWORK SKILLED NURSING LAB WORK LABWORK LABWORK LABWORK Chief Complaint SKILLED NURSING LAB WOR K LABWORK SKILLED NURSING LAB WORK SKILLED NURSING LAB WORK LABWORK SKILLED NURSING LAB WORK LABWORK LABWORK LABWORK LABWORK Chief Complaint Admit Date SKILLED NURSING LAB WORK May 29 5:00am SKILLED NURSING LAB WORK June 13 6:35am SKILLED NURSING LAB WORK June 27, 2024 5:00am SKILLED NURSING LAB WORK July 11, 2024 5:00am LABWORK July 25, 2024 5 :00am B/L SHOULDER PAIN/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 o July 31, 2024 4:58pm LABWORK August 06, 2024 4:00pm LABWORK August 08, 2024 8:05am SKILLED NURSING LAB WORK August 22, 2024 7: 10am Chief Complaint Admit Date SKILLED NURSING LAB WORK May 29 5:00am SKILLED NURSING LAB WORK June 13 6:35am SKILLED NURSING LAB WORK June 27, 2024 5:00am SKILLED NURSING LAB WORK July 11, 2024 5:00am LABWORK July 25, 2024 5 :00am B/L SHOULDER PAIN/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 o July 31, 2024 4:58pm LABWORK August 06, 2024 4:00pm LABWORK August 08, 2024 8:05am SKILLED NURSING LAB WORK August 22, 2024 7: 10am SKILLED NURSING LAB WORK September 05, 2024 8 :00am Chief Complaint Admit Date SKILLED NURSING LAB WORK June 13 6:35am SKILLED NURSING LAB WORK June 27, 2024 5:00am SKILLED NURSING LAB WORK July 11, 2024 5:00am LABWORK July 25, 2024 5 :00am B/L SHOULDER PAIN/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 o July 31, 2024 4:58pm LABWORK August 06, 2024 4:00pm LABWORK August 08, 2024 8:05am SKILLED NURSING LAB WORK August 22, 2024 7: 10am SKILLED NURSING LAB WORK September 05, 2024 8 :00am SKILLED NURSING LAB WORK October 03, 2024 4 :00am Chief Complaint Admit Date SKILLED NURSING LAB WORK June 27, 2024 5:00am SKILLED NURSING LAB WORK July 11, 2024 5:00am LABWORK July 25, 2024 5 :00am B/L SHOULDER PAIN/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 o July 31, 2024 4:58pm LABWORK August 06, 2024 4:00pm LABWORK August 08, 2024 8:05am SKILLED NURSING LAB WORK August 22, 2024 7: 10am SKILLED NURSING LAB WORK September 05, 2024 8 :00am LABWORK September 19, 2024 5:00 am SKILLED NURSING LAB WORK September 23, 2024 8: 20am SKILLED NURSING LAB WORK October 03, 2024 4 :00am Chief Complaint Admit Date LABWORK August 06, 2024 4:00pm LABWORK August 08, 2024 8:05am SKILLED NURSING LAB WORK August 22, 2024 7: 10am SKILLED NURSING LAB WORK September 05, 2024 8 :00am LABWORK September 19, 2024 5:00 am SKILLED NURSING LAB WORK September 23, 2024 8: 20am SKILLED NURSING LAB WORK October 03, 2024 4 :00am LABWORK October 17, 2024 5:00am LABOWRK November 08, 2024 5:00a m Chief Complaint Admit Date LABWORK August 06, 2024 4:00pm LABWORK August 08, 2024 8:05am SKILLED NURSING LAB WORK August 22, 2024 7: 10am SKILLED NURSING LAB WORK September 05, 2024 8 :00am LABWORK September 19, 2024 5:00 am SKILLED NURSING LAB WORK September 23, 2024 8: 20am SKILLED NURSING LAB WORK October 03, 2024 4 :00am LABWORK October 17, 2024 5:00am LABOWRK November 08, 2024 5:00a m SKILLED NURSING LAB WORK November 14, 2024 6:5 0am LABOWRK November 28, 2024 5:00 am Chief Complaint Admit Date LABOWRK November 28, 2024 5:00 am SKILLED NURSING LAB WORK December 12, 2024 7: 40am SKILLED NURSING LAB WORK December 24, 2024 12: 15am SKILLED NURSING LAB WORK December 26, 2024 5: 00am SKILLED NURSING LAB WORK January 09, 2025 7: 00am LABWORK January 23, 2025 5:0 0am LABWORK February 06, 2025 5: 00am SKILLED NURSING LAB WORK February 20 5:00am SKILLED NURSING LAB WORK March 10 4:00am Additional Source Comments INFORMATION SOURCE (unrecogn ized section and content) DATE CREATED AUTHOR 12/13/2017 [employer] DATE CREATED AUTHOR AUTHOR'S ORGANIZ ATION 10/08/2020 [facility] DATE CREATED AUTHOR AUTHOR'S ORGANIZ ATION 08/26/2021 [facility] DATE CREATED AUTHOR AUTHOR'S ORGANIZ ATION 02/05/2024 [facility] DATE CREATED AUTHOR AUTHOR'S ORGANIZ ATION 04/23/2025 Shahriar On License Of [facility] Reason for Visit (unrecogniz ed section and content) Reason Comments Fall Surgical team Reason Onset Date Comments Results 10/05/2022 Reason Comments Black or Bloody Stool Specialty Diagnoses / Procedures Referred By Varun t Referred To Contact Diagnoses Acute lower GI bleeding Procedures K92.2 Bertram Durbin MD [address] [facility] [address] [place] [address] [facility] Med Surg [address] [place] [address] Referral ID Status Reason Start Date Expiration Date Visits Re quested Visits Authorized [id number] 1 1 Reason Onset Date Comments Med [...] Contact Diagnoses LING (acute kidney injury) (CMS/HCC) ([facility]) Procedures .. Gabrielle Finch MD [address] [place] [address] [facility] Emergency Dept [address] [place] [address] Referral ID Status Reason Start Date Expiration Date Visits Re quested Visits Authorized [id number] 1 1 Reason Onset Date Comments ER [...] Attending Provider Active Start: September 19, 2024 Senior Applications Developer Relationship Specialty Start Date End Date Shiv Lopez MD [address] [place] [address], [place] [address] PCP - General 02/01/19 Senior Applications Developer Relationship Specialty Start Date End Date Shiv Lopez MD [address] [facility] [place] [address] PCP - General 02/01/19 Senior Applications Developer Relationship Specialty Start Date End Date Shiv Lopez MD [address] [facility] [place] [address] PCP - General 02/01/19 Senior Applications Developer Relationship Specialty Start Date End Date Shiv Lopez MD [address] [facility] [place] [address] PCP - General 02/01/19 Senior Applications Developer Relationship Specialty Start Date End Date Shiv Lopez MD [address] [facility] [place] [address] PCP - General 02/01/19 Senior Applications Developer Relationship Specialty Start Date End Date Shiv Lopez MD [address] [facility] [address] PCP - General 02/01/19 Senior Applications Developer Relationship Specialty Start Date End Date Shiv Lopez MD [address] [facility] [address] PCP - General 02/01/19 Senior Applications Developer Relationship Specialty Start Date End Date Shiv Lopez MD [address] [facility] [place] [address] PCP - General 02/01/19 Senior Applications Developer Relationship Specialty Start Date End Date Shiv Lopez MD [address] [place] [address] PCP - General 02/01/19 Senior Applications Developer Relationship Specialty Start Date End Date Shiv Lopez MD [address] [facility] [place] [address] PCP - General 02/01/19 Senior Applications Developer Relationship Specialty Start Date End Date Shiv Lopez MD [address] [facility] [place] [address] PCP - General 02/01/19 Senior Applications Developer Relationship Specialty Start Date End Date Shiv Lopez MD [address] [place] [address] PCP - General 02/01/19 Senior Applications Developer Relationship Specialty Start Date End Date Shiv Lopez MD [address] [place] [address] PCP - General 02/01/19 Senior Applications Developer Relationship Specialty Start Date End Date Shiv Lopez MD [address] [place] [address] PCP - General 02/01/19 Team Status: Active [...] THOMPSON MD Attending Provider, Referring Provider Active Senior Applications Developer Relationship Specialty Start Date End [place] [address] PCP - General 02/01/19 Senior Applications Developer Relationship Specialty Start Date End Date Shiv Lopez MD [address] [place] [id number] PCP - General 02/01/19 Senior Applications Developer Relationship Specialty Start Date End Date Shiv Lopez MD [address] [place] [id number] PCP - General 02/01/19 Senior Applications Developer Relationship Specialty Start Date End Date Shiv Lopez MD [address] [place] [id number] PCP - General 02/01/19 Team Status: Inactive [...] Status: Inactive Member Role/Relationship Status Dates Dr. Melsisa Reed MD Primary care physician Active Start: [...] dose (after last modification) on Mon12/06/22 at 1999 2156 (Given - Provider: Maryuri Dumont RCP) [...] parameters not met - Comment: Held per [facility]) 0859 (Given - Provider: Oneyda Young RN) [...] parameters not met - Comment: Held per [facility]) 0859 (Given - Provider: Oneyda Young RN) [...] Nguyen RN)0859 (See Alternative - Provider: Oneyda Young, RN) acetaminophen (Tylenol) tablet 650 mg(Linked Group 2) 650 mg, Oral, Every 6 hours PRN, mild pain (1-3), fever, For temp greater than 100.4 F (38 C), Starting on Mon12/05/22 at 1953, Maximum dose of acetaminophen is 4000 mg from all sources in 24 hours. 0032 (Given - Provider: Juan Nguyen RN)0859 (Given - Provider: Oneyda Young, RN) dextrose 5 % infusion 100 mL/hr, [...] at 1815 2111 (Given - Provider: Lizeth Shelby, RN) 2058 (Given - Provider: Lizeth Shelby [...] 09 (Given - Provider: Alma Turner RN) 908 [...] 09 (Given - Provider: Tristan Champion LPN) 08 (Given - Provider: Tristan Champion LPN) Insulin [...] Alma Turner RN)2111 (Given - Provider: Lizeth Shelby, RN) 0605 (Given - Provider: Lizeth Shelby, RN)1100 (Canceled Entry - Provider: Tristan Champion [...] for 30 minutes before and after dose. 06 (Given - Provider: Lizeth Shelby RN) levothyroxine [...] 2112 (Given - Provider: Lizeth Shelby RN) 2099 [...] BE BASED ON THE PRIMARY CLINICAL RECORDS. [facility] [employer] [facility]. provides no warranty or guarantee of the accuracy or completeness of information in this document.
[2025-04-24 09:19] LABS: Hematocrit 40.2 % (37-47); Hemoglobin 11.6 g/dL (12.0-15.0); Mean Corp Hgb Conc 28.9 g/dL (32-36); Mean Corpuscular Volume 105.8 fL (81-99); Mean Platelet Vol. 10.2 fl (6.2-12.0); Platelet Count 218 K/mm3 (150-450); RBC Distribution Width CV 12.7 % (11.6-14.6); RBC Distribution Width SD 49.8 fl (35.1-43.9); Red Blood Count 3.80 M/mm3 (4.2-5.4); White Blood Count 12.0 K/mm3 (4.4-11.0)
== END ==
LOC: OLS.SW 05:00
PROVIDERS: PCP Internal Medicine; Visit Provider Internal Medicine
DX: N39.0 Urinary tract infection, site not specified (principal)
CPT/HCPCS: 36415; 85027

== ENCOUNTER → 2025-04-24 | Outpatient (REF) | payer MEDICARE, MEDICAID, SELFPAY ==
[2025-04-25 12:38] LABS: Mucous, Urine 0 SEEN /hpf (<or=2+); Red Blood Cells-Urine 0 SEEN /hpf (0-5)
[2025-04-25 12:50] LABS: Color, Urine Yellow (Yellow); Glucose, Dipstick Normal (Normal); Ketone-Dipstick Negative (Negative); Leukocyte Esterase-Dipstick 500 /ul (Negative); Nitrite-Dipstick Negative (Negative); Occult Blood-Urine Negative /ul (Negative); Protein-Dipstick 15 mg/dl (Negative); Specific Gravity, Urine 1.015 (1.002-1.030); Urine Bilirubin Dipstick Negative (Negative)
[2025-04-25 12:57] LABS: Squamous Epithelial Cells - UA 0-5 SEEN /hpf (5-10)
== END ==
LOC: OLS.SW 19:20
PROVIDERS: PCP Internal Medicine
DX: D72.829 Elevated white blood cell count, unspecified (principal); R39.9 Unspecified symptoms and signs involving the genitourinary system
CPT/HCPCS: 81001; 87086; 87088

== ENCOUNTER → 2025-04-27 | Outpatient (REF) | payer SELFPAY | LOC: OLS.SW 14:21 | PROVIDERS: Visit Provider Internal Medicine | DX: R39.9 Unspecified symptoms and signs involving the genitourinary system (principal) ==

== ENCOUNTER 2025-05-11 14:58 | Inpatient (IN) | payer MEDICARE, MEDICAID, SELFPAY ==
[2025-05-11] VITALS (11 sets, daily range): BP systolic 122–151; BP diastolic 53–66; PULSE 69–103; RESP 16–29; TEMP 36.6–36.8; O2SAT 92–99; BMI 40.3; BMI 37.7
--- NOTE | 2025-05-11 15:33 | EX.ED.DYSGE1 ---
HPI History of Present Illness Chief Complaint: Shortness of Breath Detail of Chief Complaint: Transported by ambulance from extended-care facility for respiratory sympto Informant: patient and EMS Limited: other (Decreased level of consciousness) Onset/Context/Timing Onset: Today (Per paramedics. Limited history) Context: - (Uncertain) Timing: Continuous Quality: Trouble breathing, productive cough, wheezing, decreased level of conscious Location: Respiratory Current Severity: Mild Maximum Severity: Moderate Worsened by: Patient does not know Relieved by: Per patient nothing Associated Symptoms Associated Symptoms: Wheezing, and shortness of breath Narrative Narrative: Patient is AN 79-year-old woman. She has a past medical history of acquired lymphedema, rheumatoid arthritis, hyperlipidemia, hypertension, hypothyroidism, depression, type 2 diabetes who was brought in because respiratory difficulty. She has had a productive cough for the past 3 to 4 days. She denies fever or chills. She denies headache. She denies rhinorrhea, congestion postnasal drainage. She denies sore throat. She does endorse productive cough of colored sputum for the past 3 to 4 days. She does endorse shortness of breath at rest. She states she has not gotten up out of bed for the past 3 days. She normally walks with a walker. She denies history of VTE. She states she has chronic swelling of her legs. Denies leg pain or discoloration from baseline. There is no history of nausea or vomiting in the past couple of days. She denies any urologic symptoms. No other history is available. Prior similar symptoms: No Recent Illness/Hospitalization: No [facility] Medical History Carbapenem-resistant Enterobacteriaceae infection History of ESBL E. coli infection Mitral valve annular calcification Mild pulmonary arterial systolic hypertension Right ventricular dilation Hypothyroidism Hyperlipidemia Rheumatoid arthritis Diabetes mellitus Leg edema Leg swelling Chronic venous insufficiency Anemia Depression Hypothyroidism Chronic pain Arthritis Non-smoker Combined hyperlipidemia Hypertension Home Medications ?Medication ?Instructions ?Recorded ?Last Taken ?Type ergocalciferol (vitamin D2) 1,250 1,250 mcg PO DAILY Supplement 12/23/20 03/03/23 08:00 History mcg (50,000 unit) capsule (Vitamin D2) amlodipine 10 mg tablet 10 mg PO DAILY BP #90 tabs 07/15/21 Unknown Rx baclofen 10 mg tablet 10 mg PO DAILY Muscle Spasms 03/03/23 Unknown History buspirone 5 mg tablet 5 mg PO BID PRN anxiety 03/03/23 Unknown History hydralazine 25 mg tablet 50 mg PO TID BP 03/03/23 Unknown History melatonin 3 mg capsule 3 mg PO QHS Sleep 03/03/23 Unknown History paroxetine HCl 20 mg tablet (Paxil) 20 mg PO DAILY Mood 03/03/23 Unknown History Petrolatum 33% [Eucerin Eqivalent] 1 applic topical BID ##0 03/15/23 Unknown Rx acetaminophen 500 mg tablet 1,000 mg (2 x 500 mg) PO Q6H PRN 03/15/23 Unknown Rx Pain 1-10 #0 tabs ammonium lactate 12 % lotion 1 applic topical BID #0 grams 03/15/23 Unknown Rx atorvastatin 20 mg tablet 20 mg PO QHS #0 tabs 03/15/23 Unknown Rx menthol 0.44 %-zinc oxide 20.6 % 1 applic topical BID #0 grams 03/15/23 Unknown Rx topical ointment (Calmoseptine) nystatin 100,000 unit/gram topical 1 applic topical BID #0 grams 03/15/23 Unknown Rx powder ([facility]) sennosides 8.6 mg-docusate sodium 1 tab PO BID #0 tabs 03/15/23 Unknown Rx 50 mg tablet (Stool Softener-Stimulant Laxative) triamcinolone acetonide 0.1 % 1 applic topical BID #0 grams 03/15/23 Unknown Rx topical ointment albuterol sulfate 1.25 mg/3 mL 1.25 mg inhalation Q4H 05/11/25 Unknown History solution for nebulization albuterol sulfate 90 mcg/actuation 2 puff inhalation Q4H PRN 05/11/25 Unknown History aerosol inhaler shortness of breath or wheezing ascorbic acid (vitamin C) 500 mg 1 g PO DAILY 05/11/25 Unknown History tablet (C-500) cetirizine 10 mg tablet (24Hour 10 mg PO DAILY 05/11/25 Unknown History Allergy) furosemide 80 mg tablet 80 mg PO DAILY 05/11/25 Unknown History guaifenesin 100 mg/5 mL oral 400 mg PO Q4H 05/11/25 Unknown History liquid (Adult Tussin Chest Congestion) insulin glargine 100 unit/mL (3 32 unit subcut DAILY 05/11/25 Unknown History mL) subcutaneous pen (Basaglar KwikPen U-100 Insulin) levothyroxine 100 mcg tablet 100 mcg PO DAILY 05/11/25 Unknown History ondansetron HCl 4 mg tablet 4 mg PO Q8H PRN PRN nausea and 05/11/25 Unknown History vomiting oxybutynin chloride 10 mg 10 mg PO DAILY 05/11/25 Unknown History tablet,extended release 24 hr potassium chloride 20 mEq 20 meq PO DAILY 05/11/25 Unknown History tablet,extended release(part/cryst) pramipexole 0.5 mg tablet 0.5 mg PO DAILY 05/11/25 Unknown History trazodone 100 mg tablet 100 mg PO QHS 05/11/25 Unknown History Allergy/AdvReac Type Severity Reaction Status Date / Time aspirin (From Percodan) Allergy Other Verified 01/26/21 08:43 oxycodone (From Percodan) Allergy Other Verified 01/26/21 08:43 vancomycin Allergy Rash Verified 01/26/21 08:43 Family History Other Cancer Heart disease Surgical History History of lung biopsy History of appendectomy History of cholecystectomy Social History household members: none Smoking Status: Never smoker alcohol intake: current details: 1 mixed drink every 2 weeks. substance use type: does not use ROS ROS ED Review of Systems ROS Unobtainable: due to mental status Constitutional Constitutional ED: Denies chills, fever(s) or subjective Eyes Eyes: Denies blurry vision or change in vision ENT ENT ED: Denies ear pain, rhinorrhea or sore throat Cardiovascular Cardiovascular: Denies chest pain or palpitations Respiratory/Chest Respiratory/Chest: Reports cough, dyspnea and sputum Gastrointestinal Gastrointestinal: Denies abdominal pain, nausea or vomiting Genitourinary Genitourinary ED: Reports other Details: Patient reports she has an indwelling Gonzalez. Will need to confirm. Musculoskeletal Musculoskeletal: Denies arthralgias or myalgias Integumentary Denies rash Neurologic Neurologic: Reports weakness; Denies headache(s) or paresthesias Psychiatric Psychiatric: Reports depression Endocrine Endocrinology: Denies cold intolerance or heat intolerance EXAM Physical Exam Const Vital Signs: 05/11/25 15:00 05/11/25 15:04 05/11/25 15:08 Temperature 98.1 F 98.1 F Temperature Source Oral Oral Pulse Rate 69 103 H Respiratory Rate 24 H 29 H Respiratory Effort Short of Breath Respiratory Depth Shallow Respiratory Pattern Tachypnea Blood Pressure 151/66 H 151/66 H Blood Pressure Mean 94 94 Pulse Ox 97 96 Oxygen Delivery Method Nasal Cannula Nasal Cannula Nasal Cannula Oxygen Flow Rate (L/min) 3 3 3 05/11/25 15:45 05/11/25 16:04 05/11/25 16:24 Temperature 98 F Temperature Source Oral Pulse Rate 69 76 Respiratory Rate 18 22 H Respiratory Effort Respiratory Depth Respiratory Pattern Normal Blood Pressure 133/56 H Blood Pressure Mean 81 Pulse Ox 95 Oxygen Delivery Method Room Air Room Air Oxygen Flow Rate (L/min) 05/11/25 17:00 05/11/25 18:00 Temperature 98 F 98 F Temperature Source Oral Oral Pulse Rate 80 78 Respiratory Rate 23 H 16 Respiratory Effort Respiratory Depth Respiratory Pattern Blood Pressure 127/59 H 148/53 H Blood Pressure Mean 81 84 Pulse Ox 92 98 Oxygen Delivery Method Nasal Cannula Nasal Cannula Oxygen Flow Rate (L/min) 2 2 Positive well nourished and well developed Constitutional Narrative: Patient does not appear well. She is hypoxic on room air at 87%. I was not allowed to drop any further. She is placed on oxygen. General Appearance ED: well developed, pallor and other Patient is tachypneic. She is breathing faster than 24 times a minute. Per my count she was breathing 30+ times a minute ; Negative for cyanotic or diaphoretic HEENT Reports dry mucous membranes HEENT Narrative: Thick sputum noted in the posterior pharynx. She is unable to clear her secretions. Mouth ED: Yes dry mucous membranes Mouth: dry mucous membranes Eyes PERRL and EOMs intact bilaterally General Eye ED: Negative for pale conjunctiva or scleral icterus Neck no lymphadenopathy, supple and no JVD Neck Narrative: Difficult to assess for JVD due to body habitus. Chest Wall inspection of chest normal and palpation of chest normal Resp normal respiratory effort and No clear to auscultation bilaterally Resp Narrative: Diminished breath sounds. Breath sounds are symmetric. She does have expiratory wheezing bilaterally. Exam is limited because she has a has difficulty rising to an upright position for me to auscultate her lungs completely. Cardio regular rate, regular rhythm, S1 normal heart sound, S2 normal heart sound and no murmurs GI normal to inspection, nondistended, normoactive bowel sounds, non-tender, non-distended and no masses; Negative for hepatosplenomegaly GI Narrative: Exam limited due to body habitus. Palpation: soft Back/Spine no CVA tenderness Extremity Extremity Narrative: Venous stasis dermatitis, stigmata of peripheral arterial disease and contractures of her toes. Neuro Neuro Narrative: Patient is awake but not alert. She is oriented to name place. Psych Mood & Affect: depressed Skin no wounds and No skin turgor normal General Skin Exam: pallor; Negative for jaundice MDM MDM MDM Narrative Medical decision making narrative: With altered mental status and patient's past medical history and reason for presentation need to evaluate for pneumonia, respiratory failure with hypercapnia, hepatic encephalopathy,, hypothyroidism. Workup included EKG, chest x-ray, appropriate blood work assessing for endorgan dysfunction, ammonia, TSH, ABG to assess acid-base status, AA gradient and CO2. Review of prior record indicates she has history of UTIs. If she does have a Gonzalez and will send urine as well. Suspect her etiology is respiratory. Patient was in the TCU in February. She was admitted March 06 and discharged March 15. Her discharge diagnosis was type 2 diabetes, acquired lymphedema, fungal infection, Dr. Jaffe's note was reviewed. History & Record Review Additional record(s) reviewed:: Prior inpatient record, Prior outpatient record, Prior ED visit and Prior labs Lab Data Attestation: I reviewed the patient's lab results. Lab results narrative: White count is elevated at 13.3. H&H is 11.9 and 38.6 with normal indices. Differential is normal. Coags are normal. Electrolyte panel is remarkable for a slightly elevated glucose of 100. BUN and creatinine are elevated at 33 and 1.21. Lactate is less than 1. Ammonia level is low at 10.8. TSH is lower end of normal at 1.29. Labs: Laboratory Results - last 24 hr 05/11/25 05/11/25 05/11/25 15:15 16:15 16:16 WBC 13.3 H RBC 3.99 L Hgb 11.9 L Hct 38.6 MCV 96.7 MCH 29.8 MCHC 30.8 L RDW Std Deviation 43.7 RDW Coeff of Daphney 12.2 Plt Count 348 MPV 10.7 Immature Gran % (Auto) 0.400 Neut % (Auto) 66.6 Lymph % (Auto) 17.8 L Hidalgo % (Auto) 9.5 Eos % (Auto) 5.2 H Baso % (Auto) 0.5 Absolute Neuts (auto) 8.9 H Absolute Lymphs (auto) 2.36 Nucleated RBC % 0 PT 13.5 INR 1.0 APTT 40.2 H Sodium 140 Potassium 4.2 Chloride 100 Carbon Dioxide 29.7 Anion Gap 11 BUN 33 H Creatinine 1.21 H Estim Creat Clear Calc 48.17 L Est GFR (MDRD) Non-Af 45 L BUN/Creatinine Ratio 26.9 H Glucose 100 H Lactic Acid < 1.0 Calcium 8.7 Total Bilirubin 0.47 AST 45 H ALT 34 Alkaline Phosphatase 117 H Ammonia 10.8 L Total Protein 7.0 Albumin 3.2 L Globulin 3.8 Albumin/Globulin Ratio 0.8 L Procalcitonin 0.09 TSH 1.290 ABG Data Attestation: I personally reviewed and interpreted this ABG as follows: Interpretation: ABG reveals evidence of chronic CO2 retention. pH is 7.39. Bicarb is 37.5 which is elevated, CO2 is 39. Base excess is +12. O2 sat on 1.5 L by nasal cannula is 91% P. pCO2 was 62.6 with a PaO2 of 64. This indicates a significant AA gradient. This would be consistent with pulmonary/lung infection. ABG results: ABG 05/11/25 15:51 Specimen Type ART Sample Site L Radial pH 7.39 Bicarbonate Actual 37.5 H Total CO2 39 Base Excess 12 H O2 Saturation 91 L O2 % 2.0 ABG pCO2 62.6 H ABG pO2 64 L Elder Test Positive O2 Delivery Device Cannula Vent Mode Not entered Radiography Chest X-Ray - ED: 1 View and Read by ED Physician (Cardiac size silhouette normal. She has some chronic changes. Poor in story volume. No obvious abnormality of the osseous structures.) Diagnostic Testing: Clinical Impression(s) from Imaging Studies Chest X-Ray 05/11/25 16:15 IMPRESSION: No Acute Findings. Reading Location: [id number] Management Discussion w/another healthcare provider: Hospitalist (Spoke with Dr. Graham requested rapid antigen for COVID, RSV and influenza. Plan is admission PCU) Discharge Plan Dx/Rx/DC Orders Clinical Impression: Chronic hypercapnic respiratory failure, Hypoxia, Purulent bronchitis, Acute bronchospasm, Acute alteration in mental status, Edema, Adult BMI 40.0-44.9 kg/sq m, Lymphedema of both lower extremities, Diabetes mellitus, Hypertension, Adult failure to thrive Disposition Disposition: Acute Care Hospital [facility] Discharge Date/Time: 05/11/25 20:19
[2025-05-11] MEDS: Albuterol 2.5 MG/3 ML VIAL.NEB. INHALATION ×3 (15:42)
[2025-05-11 15:55] LABS: Allen Test Positive; Base Excess 12 mmol/L (-2 to +2); FI02 2.0; PO2 64 mmHG (75-100); SITE L Radial; SO2 91 % (94-98)
--- OUTSIDE RECORDS SUMMARY | 2025-05-11 16:13 | XMS RPT_ITS | CCD ---
Author Organization [facility] Care Team Providers Care Transitional Care Liaison Name Role Phone Shiv Lopez Unavailable Unavailable PROVIDER, UNKNOWN Unavailable Unavailable Shiv Lopez Unavailable Unavailable Shiv Lopez Primary Care Provider Shiv Lopez Primary Care Provider [phone] Shiv Lopez Primary Care Provider [phone] Shiv Lopez MD Primary Care Provider Shiv [...] Argueta MD, Dr. Betancur Attending Provider [phone] Dr. Gypsy Argueta MD Referring Provider [phone] Dr. Melissa Reed MD Referring Provider Unavaildiony Lopez MD, Dr. Chaney Primary Care Provider Brianna TOWNSEND, Dr. Torres Attending Provider Unavaildiony Lopez MD, Dr. Chaney Primary Care Provider [phone] Brianna TOWNSEND, Dr. Torres Attending Provider Unavaildiony Reed MD, Dr. Torres Primary Care Provider Doris Reed MD, Dr. Torres Attending Provider Unavaildiony Reed MD, Dr. Torres Primary Care Physician Jamil Reed MD, Dr. Torres Attending Physician Unavail francia Lu MD, Dr. Sánchez Attending Physician Brianna TOWNSEND, Dr. Torres Primary Care Physician Jamil Reed MD, Dr. Torres [facility] Unavailable Gudla OLS, Melissa Primary Care Unavailable Gudla, Melissa Primary Care Unavailable Gudla Ryley THOMPSONyothi Attending Unavailable Shiv Lopez Primary Care Unavailable Gudla Ryley THOMPSONyothi Referring Unavailable Gudla Ryley THOMPSONyothi Attending Unavailable Gudla, Melissa Primary Care Unavailable Gudla Ryley THOMPSONyothi Attending Unavailable Gudla, Melissa Primary Care Unavailable Gudla Ryley THOMPSONyothi Attending Unavailable Gudla Ryley THOMPSONyothi Attending Unavailable Gudla OLS, Melissa Primary Care Unavailable JohnShiv cordova Primary Care Unavailable Gudla Ryley THOMPSONyothi Attending Unavailable Shiv Lopez Primary Care Unavailable Gudla Ryley THOMPSONyothi Attending Unavailable Gudla OLS, Melissa Primary Care Unavailable Gudla Ryley THOMPSONyothi Attending Unavailable Gudla, Melissa Primary Care Unavailable Gudla Ryley THOMPSONyothi Attending Unavailable Gudla, Melissa Primary Care Unavailable Basali, Ayman Referring Unavailable Basali, Ayman Attending Unavailable Gudla Ryley THOMPSONyothi Attending Unavailable [...] Unavailable Gudla OLS, Melissa Primary Care Unavailable Dong Terrell Referring Unavailable Dong Terrell Attending Unavailable Gudla OLS, Melissa Primary Care Unavailable Gudla OLS, Melissa Primary Care Unavailable [...] (20 sources) Codeine Drug Allergy 5 Itching [place], [place] (20 sources) Oxycodone-Aspiri n Propensity to adverse reactions to drug 5 [place] (20 sources) oxyCODONE Drug Allergy 1 Hives [facility] (20 sources) Vancomycin Drug Allergy 1 Rash [facility] (20 sources) Other Allergy to substance 3 [facility] (17 sources) Aspirin Drug Allergy 1 Other [facility] (2 sources) Aluminum aspirin Drug Allergy 1 [facility] (1 source) Aspirin Drug Allergy 1 [facility] (1 source) oxyCODONE Drug Allergy 1 [facility] (1 source) Vancomycin Drug Allergy 1 [facility] Medications Current Medications Medication Drug Class(es) [...] oral solution (1 source) alpha-Adrenergic Agonist, Uncompetitive D-nufehp-K-aspartat e Receptor Antagonist, Sigma-1 Agonist Start: 09-10-2018 [...] Active docusate sodium 50 mg / sennosides, senior care 8.6 mg oral tablet (20 sources) Start: [...] every week ergocalciferol (Vitamin D-2) 1.25 MG (69347 UT) capsule Indications: Vitamin D deficiency Take 1 capsule (1.25 mg) by mouth 1 (one) time per week. 90 capsule 1 07/18/2022 Active Start: 06-10-2021 take 1 capsule by mo uth every week vitamin D (ERGOCALCIFEROL) 1.25 MG (87779 UT) CAPS capsule Take 1 capsule by mouth once a week 12 capsule 1 06/10/2021 Active Start: 12-23-2020 Start: 01-16-2020 take 1 capsule by mo uth every week vitamin D (ERGOCALCIFEROL) 1.25 MG (00694 UT) CAPS capsule Take 1 capsule by mouth once a week 12 capsule 1 01/16/2020 Active Start: 10-01-2018 ergocalciferol (DRISDOL) 37526 units capsule 1 capsule every week 8 [...] hyperglycemia, without long-term current use of insulin ([facility]) 8 units with breakfast and dinner and [...] 0.7 ml/ml medicated pad (10 sources) Start: 07-06-2021 Alcohol Swabs (ALCOHOL PREP) 70 % PADS [...] Drug Class(es) Dates Sig (Normalized) Sig (Original) [id number] 200 actuat albuterol 0.09 mg/actuat metered dose [...] mg tablet Discontinued 10 mg PO DAILY 90 3 February 19, 2021 11:42am July 15, 2021 4:15pm Start: 02-19-2021 End: 07-15-2021 take 10 mg by mouth once daily Amlodipine Discontinued 10 MG PO DAILY 90 February 19, 2021 11:42am July 15, 2021 [...] CLEANUP) Start: 06-04-2019 Continuous 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 Submit a new specimen if indicated. [facility] Comment on above: Performed By: #### M 100.2200, L400.0001 ####[facility] [address] [place], [address] CBC-Complete Blood Cnt No Di ffon 04-24-2025 Erythrocyte distribution width (RBC) [Ratio] 12.7 % Normal 11.6-14.6 [facility] Comment on above: Order Comment: 515.1 Performed By: #### L 501.5200, L500.2500 #### [facility] [address] [place], [address] Hematocrit (Bld) [Volume fraction] 40.2 % Normal 37-47 [facility] Comment on above: Order Comment: 515.1 Performed By: #### L 501.5200, L500.2500 #### [facility] [address] [place], [address] Hemoglobin (Bld) [Mass/Vol] 11.6 g/dL Low 12.0-15.0 [facility] Comment on above: Order Comment: 515.1 Performed By: #### L 501.5200, L500.2500 #### [facility] [address] [place], [address] MCH (RBC) [Entitic mass] 30.5 pg Normal 27.0-32.0 [facility] Comment on above: Order Comment: 515.1 Performed By: #### L 501.5200, L500.2500 #### [facility] [address] [place], [address] MCHC (RBC) [Mass/Vol] 28.9 g/dL Low 32-36 [facility] Comment on above: Order Comment: 515.1 Performed By: #### L 501.5200, L500.2500 #### [facility] [address] [place], [address] MCV (RBC) [Entitic vol] 105.8 fL High 81-99 [facility] Comment on above: Order Comment: 515.1 Performed By: #### L 501.5200, L500.2500 #### [facility] [address] [place], [address] Platelet mean volume (Bld) [Entitic vol] 10.2 fL Normal 6.2-12.0 [facility] Comment on above: Order Comment: 515.1 Performed By: #### L 501.5200, L500.2500 #### [facility] [address] [place], [address] Platelets (Bld) [#/Vol] 218 10*3/uL Normal 150-450 [facility] Comment on above: Order Comment: 515.1 Performed By: #### L 501.5200, L500.2500 #### [facility] [address] [place], [address] RBC (Bld) [#/Vol] 3.80 10*6/uL Low 4.2-5.4 [facility] Comment on above: Order Comment: 515.1 Performed By: #### L 501.5200, L500.2500 #### [facility] [address] [place], [address] RDW SD 49.8 fl High 35.1-43.9 [facility] Comment on above: Order Comment: 515.1 Performed By: #### L 501.5200, L500.2500 #### [facility] [address] [place], [address] WBC (Bld) [#/Vol] 12.0 10*3/uL High 4.4-11.0 [facility] Comment on above: Order Comment: 515.1 Performed By: #### L 501.5200, L500.2500 #### [facility] [address] [place], [address] Urinalysis, Completeon 04-24 12625-7 Normal [facility] Comment on above: Order Comment: Urine , Random Performed By: #### M 100.2200, L400.0001 ####[facility] [address] [place], [address] Basic Metabolic Profile (BMP )on 04-22-2025 BUN/CRE 25.4 RATIO High 10-20 [facility] Comment on above: Order Comment: 515.1 Performed By: #### L 501.5200, L500.2500 #### [facility] [address] [place], [address] Calcium [Mass/Vol] 8.4 mg/dL Normal 7.6-11.0 [facility] Comment on above: Order Comment: 515.1 Performed By: #### L 501.5200, L500.2500 #### [facility] [address] [place], [address] Chloride [Moles/Vol] 100 mmol/L Normal 98-108 [facility] Comment on above: Order Comment: 515.1 Performed By: #### L 501.5200, L500.2500 #### [facility] [address] [place], [address] CO2 [Moles/Vol] 30.8 mmol/L Normal 21.0-32.0 [facility] Comment on above: Order Comment: 515.1 Performed By: #### L 501.5200, L500.2500 #### [facility] [address] [place], [address] Creatinine [Mass/Vol] 1.18 mg/dL Normal 0.70-1.20 [facility] Comment on above: Order Comment: 515.1 Performed By: #### L 501.5200, L500.2500 #### [facility] [address] [place], [address] GAP 9 Normal 5-15 [facility] Comment on above: Order Comment: 515.1 Performed By: #### L 501.5200, L500.2500 #### [facility] [address] [place], [address] GFR/1.73 sq M.predicted among non-blacks MDRD (S/P/Bld) [Vol rate/Area] 46 mL/min/{1.73_m2} Low >60 [facility] Comment on above: Order Comment: 515.1 Result Comment: mL/m in/1.73m2 CKD-EPI Creatinine Equation (2020) Performed By: #### L 501.5200, L500.2500 #### [facility] [address] [place], [address] Glucose [Mass/Vol] 190 mg/dL High 70-99 [facility] Comment on above: Order Comment: 515.1 Performed By: #### L 501.5200, L500.2500 #### [facility] [address] [place], [address] Potassium [Moles/Vol] 3.7 mmol/L Normal 3.3-5.1 [facility] Comment on above: Order Comment: 515.1 Performed By: #### L 501.5200, L500.2500 #### [facility] [address] [place], [address] Sodium [Moles/Vol] 140 mmol/L Normal 133-145 [facility] Comment on above: Order Comment: 515.1 Performed By: #### L 501.5200, L500.2500 #### [facility] [address] [place], [address] Urea nitrogen [Mass/Vol] 30 mg/dL High 4-19 [facility] Comment on above: Order Comment: 515.1 Performed By: #### L 501.5200, L500.2500 #### [facility] [address] [place], [address] Magnesiumon 04-22-2025 Magnesium [Mass/Vol] 2.1 mg/dL Normal 1.5-2.2 [facility] Comment on above: Order Comment: 515.1 Performed By: #### L 501.5200, L500.2500 #### [facility] [address] [place], [address] T4 Total, Thyroxinon 025 T4 [Mass/Vol] 7.3 ug/dL Normal 4.8-13.9 [facility] Comment on above: Order Comment: CLEAN CATCH Performed By: #### M 100.2200, L400.0001 #### [facility] [address] [place], [address] [id number] 04-09-2025 [facility]. COMMENT Normal . [facility] Comment on above: Order Comment: 08244 5AMIKACIN TROUGH Result Comment: Test Ordered: [id number] Amikacin Trough, Serum Amikacin Trough, Serum 7.1 ug/mL Reference Range: 1.0-8.0 Detection Limit = 0.8 <0.8 indicates None Detected Performed at: - [facility] [address] [id number] Java Application Developer: Germain Craig PhD, Phone: [phone] Performed By: #### M 100.2200, L400.0001 #### [facility] [address] [place], [address] Hemoglobin A1con 04-08-2025 HbA1c (Bld) [Mass fraction] 7.2 % High <=5.6 [facility] Comment on above: Order Comment: CLEAN CATCH Result Comment: Norm al < 5.7 % Prediabetic 5.7 - 6.4 % Diabetic >or= 6.5 % Please note range changes. Performed By: #### M 100.2200, L400.0001 #### [facility] [address] [place], [address] Lipid Profileon 04-08-2025 CHOL:HDL 2.38 Normal [facility] Comment on above: Order Comment: CLEAN CATCH Performed By: #### M 100.2200, L400.0001 #### [facility] [address] [place], [address] Cholesterol [Mass/Vol] 159 mg/dL Normal <=200 [facility] Comment on above: Order Comment: CLEAN CATCH Result Comment: Chol esterol level, Desirable <200 mg/dL Borderline high cholesterol 200-239 mg/dL High cholesterol >=240 mg/dL Recommendations of the NCEP Adult Treatment Panel for the following risk-cutoff thresholds for the [place] population. Performed By: #### M 100.2200, L400.0001 #### [facility] [address] [place], [address] Cholesterol in HDL [Mass/Vol] 67 mg/dL Normal [facility] Comment on above: Order Comment: CLEAN CATCH Result Comment: Misti onal Cholesterol Education Program (NCEP) guidelines: <40 mg/dL: Low HDL-cholesterol (major risk factor for CHD) >= 60 mg/dL: High HDL-cholesterol (negative risk factor for CHD) HDL-cholesterol is affected by a number of factors, e.g. smoking, exercise, hormones, sex and age. Performed By: #### M 100.2200, L400.0001 #### [facility] [address] [place], [address] Cholesterol in LDL [Mass/Vol] 73 mg/dL Normal [facility] Comment on above: Order Comment: CLEAN CATCH Result Comment: Bord xinfqj=915-547 mg/dL Higher Jrmc=983 mg/dL or greater Ferris Equation 2020 for LDL-C Performed By: #### M 100.2200, L400.0001 #### [facility] [address] [place], [address] Cholesterol in VLDL [Mass/Vol] 21 mg/dL Normal 5-40 [facility] Comment on above: Order Comment: CLEAN CATCH Performed By: #### M 100.2200, L400.0001 #### [facility] [address] [place], [address] Triglyceride [Mass/Vol] 105 mg/dL Normal [facility] Comment on above: Order Comment: CLEAN CATCH Result Comment: The drugs N-Acetylcysteine and Metamizole may falsely depress this assay. Normal range: <150 mg/dL Borderline High: 150-199 mg/dL High: 200-499 mg/dL Very High: >500 mg/dL Performed By: #### M 100.2200, L400.0001 #### [facility] [address] [place], [address] Thyroid Stim Hormone (TSH)on 04-08-2025 TSH 4.490 uIU/mL High 0.300-4.200 [facility] Comment on above: Order Comment: CLEAN CATCH Performed By: #### M 100.2200, L400.0001 #### [facility] [address] [place], [address] Vitamin D,25 Hydroxyon 04-08 Vitamin D 25-OH 57.3 ng/mL Normal 30-100 [facility] Comment on above: Order Comment: 301.1 Result Comment: Tamar min D Status Deficiency: <20 ng/mL (50nmol/L) Insufficiency: 20-30 ng/mL (50-75 nmol/L) Sufficiency: 30-100 ng/mL (75-250 nmol/L) Toxicity: >100 ng/mL (>250 nmol/L) Performed By: #### M 100.2200, L400.0001 #### [facility] [address] [place], [address] Basic Metabolic Profile (BMP )on 04-03-2025 BUN/CRE 20.2 RATIO High - [facility] Comment on above: Order Comment: 301.1 Performed By: #### L 919.5200, L500.2500 #### [facility] [address] [place], [address] Calcium [Mass/Vol] 8.6 mg/dL Normal 7.6-11.0 [facility] Comment on above: Order Comment: 301.1 Performed By: #### L 501.5200, L500.2500 #### [facility] [address] [place], [address] Chloride [Moles/Vol] 99 mmol/L Normal 98-108 [facility] Comment on above: Order Comment: 301.1 Performed By: #### L 501.5200, L500.2500 #### [facility] [address] [place], [address] CO2 [Moles/Vol] 29.2 mmol/L Normal 21.0-32.0 [facility] Comment on above: Order Comment: 301.1 Performed By: #### L 501.5200, L500.2500 #### [facility] [address] [place], [address] Creatinine [Mass/Vol] 1.17 mg/dL Normal 0.70-1.20 [facility] Comment on above: Order Comment: 301.1 Performed By: #### L 501.5200, L500.2500 #### [facility] [address] [place], [address] GAP 11 Normal 5-15 [facility] Comment on above: Order Comment: 301.1 Performed By: #### L 501.5200, L500.2500 #### [facility] [address] [place], [address] GFR/1.73 sq M.predicted among non-blacks MDRD (S/P/Bld) [Vol rate/Area] 47 mL/min/{1.73_m2} Low >60 [facility] Comment on above: Order Comment: 301.1 Result Comment: mL/m in/1.73m2 CKD-EPI Creatinine Equation (2020) Performed By: #### L 501.5200, L500.2500 #### [facility] [address] [place], [address] Glucose [Mass/Vol] 180 mg/dL High 70-99 [facility] Comment on above: Order Comment: 301.1 Performed By: #### L 501.5200, L500.2500 #### [facility] [address] [place], [address] Potassium [Moles/Vol] 3.8 mmol/L Normal 3.3-5.1 [facility] Comment on above: Order Comment: 301.1 Result Comment: Hemo lysis present, Results??could be affected. ?? Performed By: #### L 501.5200, L500.2500 #### [facility] [address] [place], [address] Sodium [Moles/Vol] 139 mmol/L Normal 133-145 [facility] Comment on above: Order Comment: 301.1 Performed By: #### L 501.5200, L500.2500 #### [facility] [address] [place], [address] Urea nitrogen [Mass/Vol] 24 mg/dL High 4-19 [facility] Comment on above: Order Comment: 301.1 Performed By: #### L 501.5200, L500.2500 #### [facility] [address] [place], [address] CBC-Complete Blood Cnt No Di ffon 04-03-2025 Erythrocyte distribution width (RBC) [Ratio] 12.7 % Normal 11.6-14.6 [facility] Comment on above: Order Comment: 301.1 Performed By: #### L 501.5200, L500.2500 #### [facility] [address] [place], [address] Hematocrit (Bld) [Volume fraction] 40.0 % Normal 37-47 [facility] Comment on above: Order Comment: 301.1 Performed By: #### L 501.5200, L500.2500 #### [facility] [address] [place], [address] Hemoglobin (Bld) [Mass/Vol] 12.5 g/dL Normal 12.0-15.0 [facility] Comment on above: Order Comment: 301.1 Performed By: #### L 501.5200, L500.2500 #### [facility] [address] [place], [address] MCH (RBC) [Entitic mass] 30.5 pg Normal 27.0-32.0 [facility] Comment on above: Order Comment: 301.1 Performed By: #### L 501.5200, L500.2500 #### [facility] [address] [place], [address] MCHC (RBC) [Mass/Vol] 31.3 g/dL Low 32-36 [facility] Comment on above: Order Comment: 301.1 Performed By: #### L 501.5200, L500.2500 #### [facility] [address] [place], [address] MCV (RBC) [Entitic vol] 97.6 fL Normal 81-99 [facility] Comment on above: Order Comment: 301.1 Performed By: #### L 501.5200, L500.2500 #### [facility] [address] [place], [address] Platelet mean volume (Bld) [Entitic vol] 10.1 fL Normal 6.2-12.0 [facility] Comment on above: Order Comment: 301.1 Performed By: #### L 501.5200, L500.2500 #### [facility] [address] [place], [address] Platelets (Bld) [#/Vol] 222 10*3/uL Normal 150-450 [facility] Comment on above: Order Comment: 301.1 Performed By: #### L 501.5200, L500.2500 #### [facility] [address] [place], [address] RBC (Bld) [#/Vol] 4.10 10*6/uL Low 4.2-5.4 [facility] Comment on above: Order Comment: 301.1 Performed By: #### L 501.5200, L500.2500 #### [facility] [address] [place], [address] RDW SD 45.2 fl High 35.1-43.9 [facility] Comment on above: Order Comment: 301.1 Performed By: #### L 501.5200, L500.2500 #### [facility] [address] [place], [address] WBC (Bld) [#/Vol] 8.6 10*3/uL Normal 4.4-11.0 [facility] Comment on above: Order Comment: 301.1 Performed By: #### L 501.5200, L500.2500 #### [facility] [address] [place], [address] Urine Cultureon 03-30-2025 [facility] REFER TO [id number] FOR O LABORATORY CARBAPENEMASE TESTING. Urine Culture Copy of report sent to Infection Control Printer [id number] 03/29/25 0735 Definition 6[facility]. Urine Culture ESBL Escherichia coli [place] Count >100,000 MARKER Possible Carbapenemase producing EnterobacteriaceaeA [...] levoFLOXacin Islt LAVINIA >=8 R Meropenem Islt LVAINIA <=0.25 S Nitrofurantoin Islt LAVINIA <=16 S Pip+Tazo Islt LAVINIA >=128 R Tobramycin Islt LAVINIA <=1 S TMP SMX Islt LAVINIA >=320 R Normal [facility] Comment on above: Performed By: #### M 100.2200, L400.0001 #### [facility] [address] [place], [address] Urinalysis, Completeon 03-27 BACTERIA 2+ /hpf Normal None Seen [facility] Comment on above: Order Comment: CLEAN CATCH Performed By: #### M 100.2200, L400.0001 #### [facility] [address] [place], [address] EPI,SQUAMOUS 10-25 SEEN Normal 5-10 [facility] Comment on above: Order Comment: CLEAN CATCH Performed By: #### M 100.2200, L400.0001 #### [facility] [address] [place], [address] WBC >100 SEEN Normal 0-5 [facility] Comment on above: Order Comment: CLEAN CATCH Performed By: #### M 100.2200, L400.0001 #### [facility] [address] [place], [address] Mucus Ql (Urine sed) 0 SEEN Normal [facility] Comment on above: Order Comment: CLEAN CATCH Performed By: #### M 100.2200, L400.0001 #### [facility] [address] [place], [address] RBC 0 SEEN Normal 0-5 [facility] Comment on above: Order Comment: CLEAN CATCH Performed By: #### M 100.2200, L400.0001 #### [facility] [address] [place], [address] Anion gap in Serum or Plasma Ordered By: Melissa Reed on 03-20-2025 Anion gap [Moles/Vol] 11 mmol/L - [facility] BUN/creatinine ratioOrdered By: Melissa Reed on 03-20-2025 Urea nitrogen/Creatinine [Mass ratio] 19.3 mg/mg - [facility] Basic Metabolic Profile (BMP )on 03-20-2025 BUN/CRE 19.3 RATIO Normal 10-20 [facility] Comment on above: Order Comment: 157 Performed By: #### L 501.5200, L500.2500 #### [facility] [address] [place], [address] GAP 11 Normal 5-15 [facility] Comment on above: Order Comment: 157 Performed By: #### L 501.5200, L500.2500 #### [facility] [address] [place], [address] Potassium [Moles/Vol] 3.8 mmol/L Normal 3.3-5.1 [facility] Comment on above: Order Comment: 157 Performed By: #### L 501.5200, L500.2500 #### [facility] [address] [place], [address] Carbon dioxide, total [Moles /volume] in Central venous bloodOrdered By: Melissa Reed on 03-20-2025 CO2 [Moles/Vol] 28.7 mmol/L Normal 21.0-32.0 [facility] Comment on above: Order Comment: 157 Performed By: #### L 501.5200, L500.2500 #### [facility] [address] [place], [address] Chloride assayOrdered By: Sd Reed on 03-20-2025 Chloride [Moles/Vol] 100 mmol/L Normal 98-108 [facility] Comment on above: Order Comment: 157 Performed By: #### L 501.5200, L500.2500 #### [facility] [address] [place], [address] Glomerular filtration rate ( GFR) estimation/1.73 sq m using serum, plasma, or whole bOrdered By: Melissa Reed on 03-20-2025 GFR/1.73 sq M.predicted among non-blacks MDRD (S/P/Bld) [Vol rate/Area] 55 mL/min/{1.73_m2} Low >60 [facility] Comment on above: mL/min/1.73m2 CKD-EP I Creatinine Equation (2020) Order Comment: 157 Result Comment: mL/m in/1.73m2 CKD-EPI Creatinine Equation (2020) Performed By: #### L 501.5200, L500.2500 #### [facility] [address] [place], [address] Magnesiumon 03-20-2025 Magnesium [Mass/Vol] 2.1 mg/dL Normal 1.5-2.2 [facility] Comment on above: Order Comment: 157 Performed By: #### L 501.5200, L500.2500 #### [facility] [address] [place], [address] Magnesium measurement (mass/ volume)Ordered By: Melissa Reed on 03-20-2025 Magnesium (Unsp spec) [Mass/Vol] 2.1 mg/dL 1.5-2.2 [facility] Potassium measurement (mass/ volume)Ordered By: Melissa Brianna on 03-20-2025 Potassium (Unsp spec) [Mass/Vol] 3.8 mmol/L 3.3-5.1 [facility] Serum creatinine measurement (mass/volume)Ordered By: Melissabridgette Reed on 03-20-2025 Creatinine [Mass/Vol] 1.03 mg/dL Normal 0.70-1.20 [facility] Comment on above: Order Comment: 157 Performed By: #### L 501.5200, L500.2500 #### [facility] [address] [place], [address] Serum glucose measurement (m ass/volume)Ordered By: Melissa Reed on 03-20-2025 Glucose [Mass/Vol] 183 mg/dL High 70-99 [facility] Comment on above: Order Comment: 157 Performed By: #### L 501.5200, L500.2500 #### [facility] [address] [place], [address] Serum or plasma calcium danae urement (mass/volume)Ordered By: Melissa Reed on 03-20-2025 Calcium [Mass/Vol] 8.9 mg/dL Normal 7.6-11.0 [facility] Comment on above: Order Comment: 157 Performed By: #### L 501.5200, L500.2500 #### [facility] [address] [place], [address] Serum or plasma urea nitroge n measurement (mass/volume)Ordered By: Melissa Reed on 03-20-2025 Urea nitrogen [Mass/Vol] 20 mg/dL High 4-19 [facility] Comment on above: Order Comment: 157 Performed By: #### L 501.5200, L500.2500 #### [facility] [address] [place], [address] Sodium levelOrdered By: Rubin Reed on 03-20-2025 Sodium [Moles/Vol] 139 mmol/L Normal 133-145 [facility] Comment on above: Order Comment: 157 Performed By: #### L 501.5200, L500.2500 #### [facility] [address] [place], [address] Hemoglobin A1con 03-14-2025 HbA1c (Bld) [Mass fraction] 6.8 % High <=5.6 [facility] Comment on above: Order Comment: 157 Result Comment: Norm al < 5.7 % Prediabetic 5.7 - 6.4 % Diabetic >or= 6.5 % Please note range changes. Performed By: #### L 501.5200, L500.2500 #### [facility] [address] [place], [address] Hemoglobin A1c percentageOrd ered By: Melissa Reed on 03-14-2025 HbA1c (Bld) [Mass fraction] 6.8 % High <5.7 [facility] Comment on above: Normal < 5.7 % Predi abetic 5.7 - 6.4 % Diabetic >or= 6.5 % Please note range changes. Anion gap in Serum or Plasma Ordered By: Melissa Reed on 03-10-2025 Anion gap [Moles/Vol] 10 mmol/L - [facility] BUN/creatinine ratioOrdered By: Melissa Reed on 03-10-2025 Urea nitrogen/Creatinine [Mass ratio] 22.7 mg/mg High - [facility] Basic Metabolic Profile (BMP )on 03-10-2025 BUN/CRE 22.7 RATIO High - [facility] Comment on above: Order Comment: CLEAN CATCH Performed By: #### M 100.2200, L400.0001 #### [facility] [address] [place], [address] Calcium [Mass/Vol] 8.6 mg/dL Normal 7.6-11.0 [facility] Comment on above: Order Comment: CLEAN CATCH Performed By: #### M 100.2200, L400.0001 #### [facility] [address] [place], [address] Chloride [Moles/Vol] 100 mmol/L Normal 98-108 [facility] Comment on above: Order Comment: CLEAN CATCH Performed By: #### M 100.2200, L400.0001 #### [facility] [address] [place], [address] CO2 [Moles/Vol] 28.0 mmol/L Normal 21.0-32.0 [facility] Comment on above: Order Comment: CLEAN CATCH Performed By: #### M 100.2200, L400.0001 #### [facility] [address] [place], [address] Creatinine [Mass/Vol] 1.08 mg/dL Normal 0.70-1.20 [facility] Comment on above: Order Comment: CLEAN CATCH Performed By: #### M 100.2200, L400.0001 #### [facility] [address] [place], [address] GAP 10 Normal 5-15 [facility] Comment on above: Order Comment: CLEAN CATCH Performed By: #### M 100.2200, L400.0001 #### [facility] [address] [place], [address] GFR/1.73 sq M.predicted among non-blacks MDRD (S/P/Bld) [Vol rate/Area] 52 mL/min/{1.73_m2} Low >60 [facility] Comment on above: Order Comment: CLEAN CATCH Result Comment: mL/m in/1.73m2 CKD-EPI Creatinine Equation (2020) Performed By: #### M 100.2200, L400.0001 #### [facility] [address] [place], [address] Glucose [Mass/Vol] 235 mg/dL High 70-99 [facility] Comment on above: Order Comment: CLEAN CATCH Performed By: #### M 100.2200, L400.0001 #### [facility] [address] [place], [address] Potassium [Moles/Vol] 3.7 mmol/L Normal 3.3-5.1 [facility] Comment on above: Order Comment: CLEAN CATCH Performed By: #### M 100.2200, L400.0001 #### [facility] [address] [place], [address] Sodium [Moles/Vol] 138 mmol/L Normal 133-145 [facility] Comment on above: Order Comment: CLEAN CATCH Performed By: #### M 100.2200, L400.0001 #### [facility] [address] [place], [address] Urea nitrogen [Mass/Vol] 25 mg/dL High 4-19 [facility] Comment on above: Order Comment: CLEAN CATCH Performed By: #### M 100.2200, L400.0001 #### [facility] [address] [place], [address] Carbon dioxide, total [Moles /volume] in Central venous bloodOrdered By: Melissa Reed on 03-10-2025 CO2 [Moles/Vol] 28.0 mmol/L 21.0-32.0 [facility] Chloride assayOrdered By: Sd Reed on 03-10-2025 Chloride [Moles/Vol] 100 mmol/L 98-108 [facility] Glomerular filtration rate ( GFR) estimation/1.73 sq m using serum, plasma, or whole bOrdered By: Melissa Reed on 03-10-2025 GFR/1.73 sq M.predicted among non-blacks MDRD (S/P/Bld) [Vol rate/Area] 52 mL/min/{1.73_m2} Low >60 [facility] Comment on above: mL/min/1.73m2 CKD-EP I Creatinine Equation (2020) Natriuretic peptide.B prohor brenda N-Terminal [Mass/volume] in Serum or PlasmaOrdered By: Melissa Reed on 03-10-2025 Natriuretic peptide.B prohormone N-Terminal [Mass/Vol] 179 pg/mL <1800 [facility] Comment on above: Heart Failure Unlike ly: < 300 pg/mLHeart Failure Likely< 50 Years: > 450 pg/mL50-75 Years: > 900 pg/mL>75 Years: > 1800 pg/mL Potassium measurement (mass/ volume)Ordered By: Melissa Reed on 03-10-2025 Potassium (Unsp spec) [Mass/Vol] 3.7 mmol/L 3.3-5.1 [facility] Pro- Brain NATRIURETIC PEPTI Elizabeth 03-10-2025 Natriuretic peptide B (Bld) [Mass/Vol] 179 pg/mL Normal <=1800 [facility] Comment on above: Order Comment: CLEAN CATCH Result Comment: Hear t Failure Unlikely: < 300 pg/mL Heart Failure Likely < 50 Years: > 450 pg/mL 50-75 Years: > 900 pg/mL >75 Years: > 1800 pg/mL Performed By: #### M 100.2200, L400.0001 #### [facility] [address] [place], [address] Serum creatinine measurement (mass/volume)Ordered By: Melissa Reed on 03-10-2025 Creatinine [Mass/Vol] 1.08 mg/dL 0.70-1.20 [facility] Serum glucose measurement (m ass/volume)Ordered By: Melissa Reed on 03-10-2025 Glucose [Mass/Vol] 235 mg/dL High 70-99 [facility] Serum or plasma calcium danae urement (mass/volume)Ordered By: Melissa Reed on 03-10-2025 Calcium [Mass/Vol] 8.6 mg/dL 7.6-11.0 [facility] Serum or plasma urea nitroge n measurement (mass/volume)Ordered By: Melissa Reed on 03-10-2025 Urea nitrogen [Mass/Vol] 25 mg/dL High 4-19 [facility] Sodium levelOrdered By: Rubin Reed on 03-10-2025 Sodium [Moles/Vol] 138 mmol/L 133-145 [facility] Anion gap in Serum or Plasma Ordered By: Melissa Reed on 03-06-2025 Anion gap [Moles/Vol] 11 mmol/L 5-15 [facility] BUN/creatinine ratioOrdered By: Melissa Reed on 03-06-2025 Urea nitrogen/Creatinine [Mass ratio] 22.3 mg/mg High 10- [facility] Basic Metabolic Profile (BMP )on 03-06-2025 BUN/CRE 22.3 RATIO High - [facility] Comment on above: Order Comment: 157 Performed By: #### L 500.2500, L504.4200 ####[facility] [address] [place], [address] Calcium [Mass/Vol] 8.8 mg/dL Normal 7.6-11.0 [facility] Comment on above: Order Comment: 157 Performed By: #### L 500.2500, L501.5200 ####[facility] [address] [place], [address] Chloride [Moles/Vol] 101 mmol/L Normal 98-108 [facility] Comment on above: Order Comment: 157 Performed By: #### L 500.2500, L501.5200 ####[facility] [address] [place], [address] CO2 [Moles/Vol] 26.7 mmol/L Normal 21.0-32.0 [facility] Comment on above: Order Comment: 157 Performed By: #### L 500.2500, L501.5200 ####[facility] [address] [place], [address] Creatinine [Mass/Vol] 1.08 mg/dL Normal 0.70-1.20 [facility] Comment on above: Order Comment: 157 Performed By: #### L 500.2500, L501.5200 ####[facility] [address] [place], [address] GAP 11 Normal 5-15 [facility] Comment on above: Order Comment: 157 Performed By: #### L 500.2500, L501.5200 ####[facility] [address] [place], [address] GFR/1.73 sq M.predicted among non-blacks MDRD (S/P/Bld) [Vol rate/Area] 52 mL/min/{1.73_m2} Low >60 [facility] Comment on above: Order Comment: 157 Result Comment: mL/m in/1.73m2 CKD-EPI Creatinine Equation (2020) Performed By: #### L 500.2500, L501.5200 ####[facility] [address] [place], [address] Glucose [Mass/Vol] 173 mg/dL High 70-99 [facility] Comment on above: Order Comment: 157 Performed By: #### L 500.2500, L501.5200 ####[facility] [address] [place], [address] Potassium [Moles/Vol] 4.2 mmol/L Normal 3.3-5.1 [facility] Comment on above: Order Comment: 157 Performed By: #### L 500.2500, L501.5200 ####[facility] [address] [place], [address] Sodium [Moles/Vol] 139 mmol/L Normal 133-145 [facility] Comment on above: Order Comment: 157 Performed By: #### L 500.2500, L501.5200 ####[facility] [address] [place], [address] Urea nitrogen [Mass/Vol] 24 mg/dL High 4-19 [facility] Comment on above: Order Comment: 157 Performed By: #### L 500.2500, L501.5200 ####[facility] [address] [place], [address] Carbon dioxide, total [Moles /volume] in Central venous bloodOrdered By: Melissa Reed on 03-06-2025 CO2 [Moles/Vol] 26.7 mmol/L 21.0-32.0 [facility] Chloride assayOrdered By: Sd Reed on 03-06-2025 Chloride [Moles/Vol] 101 mmol/L 98-108 [facility] Glomerular filtration rate ( GFR) estimation/1.73 sq m using serum, plasma, or whole bOrdered By: Melissa Reed on 03-06-2025 GFR/1.73 sq M.predicted among non-blacks MDRD (S/P/Bld) [Vol rate/Area] 52 mL/min/{1.73_m2} Low >60 [facility] Comment on above: mL/min/1.73m2 CKD-EP I Creatinine Equation (2020) Magnesiumon 03-06-2025 Magnesium [Mass/Vol] 2.3 mg/dL High 1.5-2.2 [facility] Comment on above: Order Comment: 157 Performed By: #### L 500.2500, L501.5200 ####[facility] [address] [place], [address] Magnesium measurement (mass/ volume)Ordered By: Melissa Reed on 03-06-2025 Magnesium (Unsp spec) [Mass/Vol] 2.3 mg/dL High 1.5-2.2 [facility] Potassium measurement (mass/ volume)Ordered By: Melissa Reed on 03-06-2025 Potassium (Unsp spec) [Mass/Vol] 4.2 mmol/L 3.3-5.1 [facility] Serum creatinine measurement (mass/volume)Ordered By: Melissa Reed on 03-06-2025 Creatinine [Mass/Vol] 1.08 mg/dL 0.70-1.20 [facility] Serum glucose measurement (m ass/volume)Ordered By: Melissabridgette Reed on 03-06-2025 Glucose [Mass/Vol] 173 mg/dL High 70-99 [facility] Serum or plasma calcium danae urement (mass/volume)Ordered By: Melissa Reed on 03-06-2025 Calcium [Mass/Vol] 8.8 mg/dL 7.6-11.0 [facility] Serum or plasma urea nitroge n measurement (mass/volume)Ordered By: Melissa Reed on 03-06-2025 Urea nitrogen [Mass/Vol] 24 mg/dL High 4-19 [facility] Sodium levelOrdered By: Rubin Reed on 03-06-2025 Sodium [Moles/Vol] 139 mmol/L 133-145 [facility] Anion gap in Serum or Plasma Ordered By: Melissa Reed on 02-20-2025 Anion gap [Moles/Vol] 10 mmol/L 5-15 [facility] BUN/creatinine ratioOrdered By: Melissa Reed on 02-20-2025 Urea nitrogen/Creatinine [Mass ratio] 22.1 mg/mg High 10-20 [facility] Basic Metabolic Profile (BMP )on 02-20-2025 BUN/CRE 22.1 RATIO High 10- [facility] Comment on above: Order Comment: 157 Performed By: #### L 501.4050, L500.2500 ####[facility] [address] [place], [address] Calcium [Mass/Vol] 9.0 mg/dL Normal 7.6-11.0 [facility] Comment on above: Order Comment: 157 Performed By: #### L 501.5200, L500.2500 ####[facility] [address] [place], [address] Chloride [Moles/Vol] 102 mmol/L Normal 98-108 [facility] Comment on above: Order Comment: 157 Performed By: #### L 501.5200, L500.2500 ####[facility] [address] [place], [address] CO2 [Moles/Vol] 27.8 mmol/L Normal 21.0-32.0 [facility] Comment on above: Order Comment: 157 Performed By: #### L 501.5200, L500.2500 ####[facility] [address] [place], [address] Creatinine [Mass/Vol] 1.16 mg/dL Normal 0.70-1.20 [facility] Comment on above: Order Comment: 157 Performed By: #### L 501.5200, L500.2500 ####[facility] [address] [place], [address] GAP 10 Normal 5-15 [facility] Comment on above: Order Comment: 157 Performed By: #### L 501.5200, L500.2500 ####[facility] [address] [place], [address] GFR/1.73 sq M.predicted among non-blacks MDRD (S/P/Bld) [Vol rate/Area] 47 mL/min/{1.73_m2} Low >60 [facility] Comment on above: Order Comment: 157 Result Comment: mL/m in/1.73m2 CKD-EPI Creatinine Equation (2020) Performed By: #### L 501.5200, L500.2500 ####[facility] [address] [place], [address] Glucose [Mass/Vol] 128 mg/dL High 70-99 [facility] Comment on above: Order Comment: 157 Performed By: #### L 501.5200, L500.2500 ####[facility] [address] [place], [address] Potassium [Moles/Vol] 4.4 mmol/L Normal 3.3-5.1 [facility] Comment on above: Order Comment: 157 Performed By: #### L 501.5200, L500.2500 ####[facility] [address] [place], [address] Sodium [Moles/Vol] 140 mmol/L Normal 133-145 [facility] Comment on above: Order Comment: 157 Performed By: #### L 501.5200, L500.2500 ####[facility] [address] [place], [address] Urea nitrogen [Mass/Vol] 26 mg/dL High 4-19 [facility] Comment on above: Order Comment: 157 Performed By: #### L 501.5200, L500.2500 ####[facility] [address] [place], [address] Carbon dioxide, total [Moles /volume] in Central venous bloodOrdered By: Melissa Reed on 02-20-2025 CO2 [Moles/Vol] 27.8 mmol/L 21.0-32.0 [facility] Chloride assayOrdered By: Sd Reed on 02-20-2025 Chloride [Moles/Vol] 102 mmol/L 98-108 [facility] Glomerular filtration rate ( GFR) estimation/1.73 sq m using serum, plasma, or whole bOrdered By: Melissa Reed on 02-20-2025 GFR/1.73 sq M.predicted among non-blacks MDRD (S/P/Bld) [Vol rate/Area] 47 mL/min/{1.73_m2} Low >60 [facility] Comment on above: mL/min/1.73m2 CKD-EP I Creatinine Equation (2020) Magnesiumon 02-20-2025 Magnesium [Mass/Vol] 2.4 mg/dL High 1.5-2.2 [facility] Comment on above: Order Comment: 157 Performed By: #### L 501.5200, L500.2500 ####[facility] [address] [place], [address] Magnesium measurement (mass/ volume)Ordered By: Melissa Reed on 02-20-2025 Magnesium (Unsp spec) [Mass/Vol] 2.4 mg/dL High 1.5-2.2 [facility] Potassium measurement (mass/ volume)Ordered By: Melissa Reed on 02-20-2025 Potassium (Unsp spec) [Mass/Vol] 4.4 mmol/L 3.3-5.1 [facility] Serum creatinine measurement (mass/volume)Ordered By: Melissa Reed on 02-20-2025 Creatinine [Mass/Vol] 1.16 mg/dL 0.70-1.20 [facility] Serum glucose measurement (m ass/volume)Ordered By: Melissa Reed on 02-20-2025 Glucose [Mass/Vol] 128 mg/dL High 70-99 [facility] Serum or plasma calcium danae urement (mass/volume)Ordered By: Melissa Reed on 02-20-2025 Calcium [Mass/Vol] 9.0 mg/dL 7.6-11.0 [facility] Serum or plasma urea nitroge n measurement (mass/volume)Ordered By: Melissa Reed on 02-20-2025 Urea nitrogen [Mass/Vol] 26 mg/dL High 4-19 [facility] Sodium levelOrdered By: Rubin Reed on 02-20-2025 Sodium [Moles/Vol] 140 mmol/L 133-145 [facility] Anion gap in Serum or Plasma Ordered By: Melissa Reed on 02-06-2025 Anion gap [Moles/Vol] 9 mmol/L 5-15 [facility] BUN/creatinine ratioOrdered By: Melissa Reed on 02-06-2025 Urea nitrogen/Creatinine [Mass ratio] 22.7 mg/mg High - [facility] Basic Metabolic Profile (BMP )on 02-06-2025 BUN/CRE 22.7 RATIO High - [facility] Comment on above: Order Comment: 157 Performed By: #### M 100.2200, L400.0001 #### [facility] [address] [place], [address] GAP 9 Normal 5-15 [facility] Comment on above: Order Comment: 157 Performed By: #### M 100.2200, L400.0001 #### [facility] [address] [place], [address] Potassium [Moles/Vol] 4.1 mmol/L Normal 3.3-5.1 [facility] Comment on above: Order Comment: 157 Performed By: #### M 100.0, L400.0001 #### [facility] [address] [place], [address] Carbon dioxide, total [Moles /volume] in Central venous bloodOrdered By: Melissa Reed on 02-06-2025 CO2 [Moles/Vol] 28.5 mmol/L Normal 21.0-32.0 [facility] Comment on above: Order Comment: 157 Performed By: #### M 100.2200, L400.0001 #### [facility] [address] [place], [address] Chloride assayOrdered By: Sd Reed on 02-06-2025 Chloride [Moles/Vol] 102 mmol/L Normal 98-108 [facility] Comment on above: Order Comment: 157 Performed By: #### M 100.2200, L400.0001 #### [facility] [address] [place], [address] Glomerular filtration rate ( GFR) estimation/1.73 sq m using serum, plasma, or whole bOrdered By: Melissa Reed on 02-06-2025 GFR/1.73 sq M.predicted among non-blacks MDRD (S/P/Bld) [Vol rate/Area] 54 mL/min/{1.73_m2} Low >60 [facility] Comment on above: mL/min/1.73m2 CKD-EP I Creatinine Equation (2020) Order Comment: 157 Result Comment: mL/m in/1.73m2 CKD-EPI Creatinine Equation (2020) Performed By: #### M 100.2200, L400.0001 #### [facility] [address] [place], [address] Magnesiumon 02-06-2025 Magnesium [Mass/Vol] 2.1 mg/dL Normal 1.5-2.2 [facility] Comment on above: Order Comment: 157 Performed By: #### M 100.2200, L400.0001 #### [facility] [address] [place], [address] Magnesium measurement (mass/ volume)Ordered By: Melissa Reed on 02-06-2025 Magnesium (Unsp spec) [Mass/Vol] 2.1 mg/dL 1.5-2.2 [facility] Potassium measurement (mass/ volume)Ordered By: Melissa Reed on 02-06-2025 Potassium (Unsp spec) [Mass/Vol] 4.1 mmol/L 3.3-5.1 [facility] Serum creatinine measurement (mass/volume)Ordered By: Melissa Reed on 02-06-2025 Creatinine [Mass/Vol] 1.04 mg/dL Normal 0.70-1.20 [facility] Comment on above: Order Comment: 157 Performed By: #### M 100.2200, L400.0001 #### [facility] [address] [place], [address] Serum glucose measurement (m ass/volume)Ordered By: Melissa Reed on 02-06-2025 Glucose [Mass/Vol] 131 mg/dL High 70-99 [facility] Comment on above: Order Comment: 157 Performed By: #### M 100.2200, L400.0001 #### [facility] [address] [place], [address] Serum or plasma calcium danae urement (mass/volume)Ordered By: Melissa Reed on 02-06-2025 Calcium [Mass/Vol] 8.8 mg/dL Normal 7.6-11.0 [facility] Comment on above: Order Comment: 157 Performed By: #### M 100.2200, L400.0001 #### [facility] [address] [place], [address] Serum or plasma urea nitroge n measurement (mass/volume)Ordered By: Melissa Reed on 02-06-2025 Urea nitrogen [Mass/Vol] 24 mg/dL High 4-19 [facility] Comment on above: Order Comment: 157 Performed By: #### M 100.2200, L400.0001 #### [facility] [address] [place], [address] Sodium levelOrdered By: Rubin Reed on 02-06-2025 Sodium [Moles/Vol] 140 mmol/L Normal 133-145 [facility] Comment on above: Order Comment: 157 Performed By: #### M 100.2200, L400.0001 #### [facility] [address] [place], [address] Anion gap in Serum or Plasma Ordered By: Melissa Reed on 01-23-2025 Anion gap [Moles/Vol] 10 mmol/L 5-15 [facility] BUN/creatinine ratioOrdered By: Melissa Reed on 01-23-2025 Urea nitrogen/Creatinine [Mass ratio] 25.3 mg/mg High 10- [facility] Basic Metabolic Profile (BMP )on 01-23-2025 BUN/CRE 25.3 RATIO High - [facility] Comment on above: Order Comment: CLEAN CATCH Performed By: #### M 100.2200, L400.0001 #### [facility] [address] [place], [address] Calcium [Mass/Vol] 8.8 mg/dL Normal 7.6-11.0 [facility] Comment on above: Order Comment: CLEAN CATCH Performed By: #### M 100.2200, L400.0001 #### [facility] [address] [place], [address] Chloride [Moles/Vol] 102 mmol/L Normal 98-108 [facility] Comment on above: Order Comment: CLEAN CATCH Performed By: #### M 100.2200, L400.0001 #### [facility] [address] [place], [address] CO2 [Moles/Vol] 26.3 mmol/L Normal 21.0-32.0 [facility] Comment on above: Order Comment: CLEAN CATCH Performed By: #### M 100.2200, L400.0001 #### [facility] [address] [place], [address] Creatinine [Mass/Vol] 1.06 mg/dL Normal 0.70-1.20 [facility] Comment on above: Order Comment: CLEAN CATCH Performed By: #### M 100.2200, L400.0001 #### [facility] [address] [place], [address] GAP 10 Normal 5-15 [facility] Comment on above: Order Comment: CLEAN CATCH Performed By: #### M 100.2200, L400.0001 #### [facility] [address] [place], [address] GFR/1.73 sq M.predicted among non-blacks MDRD (S/P/Bld) [Vol rate/Area] 53 mL/min/{1.73_m2} Low >60 [facility] Comment on above: Order Comment: CLEAN CATCH Result Comment: mL/m in/1.73m2 CKD-EPI Creatinine Equation (2020) Performed By: #### M 100.2200, L400.0001 #### [facility] [address] [place], [address] Glucose [Mass/Vol] 139 mg/dL High 70-99 [facility] Comment on above: Order Comment: CLEAN CATCH Performed By: #### M 100.2200, L400.0001 #### [facility] [address] [place], [address] Potassium [Moles/Vol] 4.3 mmol/L Normal 3.3-5.1 [facility] Comment on above: Order Comment: CLEAN CATCH Result Comment: Hemo lysis present, Results??could be affected. ?? Performed By: #### M 100.2200, L400.0001 #### [facility] [address] [place], [address] Sodium [Moles/Vol] 138 mmol/L Normal 133-145 [facility] Comment on above: Order Comment: CLEAN CATCH Performed By: #### M 100.2200, L400.0001 #### [facility] [address] [place], [address] Urea nitrogen [Mass/Vol] 27 mg/dL High 4-19 [facility] Comment on above: Order Comment: CLEAN CATCH Performed By: #### M 100.2200, L400.0001 #### [facility] [address] [place], [address] Carbon dioxide, total [Moles /volume] in Central venous bloodOrdered By: Melissa Reed on 01-23-2025 CO2 [Moles/Vol] 26.3 mmol/L 21.0-32.0 [facility] Chloride assayOrdered By: Sd Reed on 01-23-2025 Chloride [Moles/Vol] 102 mmol/L 98-108 [facility] Glomerular filtration rate ( GFR) estimation/1.73 sq m using serum, plasma, or whole bOrdered By: Melissa Reed on 01-23-2025 GFR/1.73 sq M.predicted among non-blacks MDRD (S/P/Bld) [Vol rate/Area] 53 mL/min/{1.73_m2} Low >60 [facility] Comment on above: mL/min/1.73m2 CKD-EP I Creatinine Equation (2020) Magnesiumon 01-23-2025 Magnesium [Mass/Vol] 2.2 mg/dL Normal 1.5-2.2 [facility] Comment on above: Order Comment: CLEAN CATCH Performed By: #### M 100.2200, L400.0001 #### [facility] [address] [place], [place], [id number] Magnesium measurement (mass/ volume)Ordered By: Melissa Reed on 01-23-2025 Magnesium (Unsp spec) [Mass/Vol] 2.2 mg/dL 1.5-2.2 [facility] Potassium measurement (mass/ volume)Ordered By: Melissa Reed on 01-23-2025 Potassium (Unsp spec) [Mass/Vol] 4.3 mmol/L 3.3-5.1 [facility] Comment on above: Hemolysis present, R esults could be affected. Serum creatinine measurement (mass/volume)Ordered By: Melissa Reed on 01-23-2025 Creatinine [Mass/Vol] 1.06 mg/dL 0.70-1.20 [facility] Serum glucose measurement (m ass/volume)Ordered By: eMlissa Reed on 01-23-2025 Glucose [Mass/Vol] 139 mg/dL High 70-99 [facility] Serum or plasma calcium danae urement (mass/volume)Ordered By: Melissa Reed on 01-23-2025 Calcium [Mass/Vol] 8.8 mg/dL 7.6-11.0 [facility] Serum or plasma urea nitroge n measurement (mass/volume)Ordered By: Melissa Reed on 01-23-2025 Urea nitrogen [Mass/Vol] 27 mg/dL High 4-19 [facility] Sodium levelOrdered By: Rubin Reed on 01-23-2025 Sodium [Moles/Vol] 138 mmol/L 133-145 [facility] Anion gap in Serum or Plasma Ordered By: Melissa Reed on 01-09-2025 Anion gap [Moles/Vol] 8 mmol/L - [facility] BUN/creatinine ratioOrdered By: Melissa Reed on 01-09-2025 Urea nitrogen/Creatinine [Mass ratio] 22.0 mg/mg High 04-07 [facility] Basic Metabolic Profile (BMP )on 01-09-2025 BUN/CRE 22.0 RATIO High 04-07 [facility] Comment on above: Performed By: #### M 100.2200, L400.0001 #### [facility] [address] [place], [address] GAP 8 Normal 10-31 [facility] Comment on above: Performed By: #### M 100.2200, L400.0001 #### [facility] [address] [place], [address] Potassium [Moles/Vol] 4.5 mmol/L Normal 3.3-5.1 [facility] Comment on above: Result Comment: Hemo lysis present, Results??could be affected. ?? Performed By: #### M 100.2200, L400.0001 #### [facility] [address] [place], [address] Carbon dioxide, total [Moles /volume] in Central venous bloodOrdered By: Melissa Reed on 01-09-2025 CO2 [Moles/Vol] 29.7 mmol/L Normal 21.0-32.0 [facility] Comment on above: Performed By: #### M 100.2200, L400.0001 #### [facility] [address] [place], [address] Chloride assayOrdered By: Sd Reed on 01-09-2025 Chloride [Moles/Vol] 103 mmol/L Normal 98-108 [facility] Comment on above: Performed By: #### M 100.2200, L400.0001 #### [facility] [address] [place], [address] Glomerular filtration rate ( GFR) estimation/1.73 sq m using serum, plasma, or whole bOrdered By: Melissa Reed on 01-09-2025 GFR/1.73 sq M.predicted among non-blacks MDRD (S/P/Bld) [Vol rate/Area] 52 mL/min/{1.73_m2} Low >60 [facility] Comment on above: mL/min/1.73m2 CKD-EP I Creatinine Equation (2020) Result Comment: mL/m in/1.73m2 CKD-EPI Creatinine Equation (2020) Performed By: #### M 100.2200, L400.0001 #### [facility] [address] [place], [address] Magnesiumon 01-09-2025 Magnesium [Mass/Vol] 2.1 mg/dL Normal 1.5-2.2 [facility] Comment on above: Performed By: #### M 100.2200, L400.0001 #### [facility] [address] [place], [address] Magnesium measurement (mass/ volume)Ordered By: Melissa Reed on 01-09-2025 Magnesium (Unsp spec) [Mass/Vol] 2.1 mg/dL 1.5-2.2 [facility] Potassium measurement (mass/ volume)Ordered By: Melissa Reed on 01-09-2025 Potassium (Unsp spec) [Mass/Vol] 4.5 mmol/L 3.3-5.1 [facility] Comment on above: Hemolysis present, R esults could be affected. Serum creatinine measurement (mass/volume)Ordered By: Melissa Reed on 01-09-2025 Creatinine [Mass/Vol] 1.08 mg/dL Normal 0.70-1.20 [facility] Comment on above: Performed By: #### M 100.2200, L400.0001 #### [facility] [address] [place], [address] Serum glucose measurement (m ass/volume)Ordered By: Melissabridgette Reed on 01-09-2025 Glucose [Mass/Vol] 78 mg/dL Normal 70-99 [facility] Comment on above: Performed By: #### M 100.2200, L400.0001 #### [facility] [address] [place], [address] Serum or plasma calcium danae urement (mass/volume)Ordered By: Melissa Reed on 01-09-2025 Calcium [Mass/Vol] 9.0 mg/dL Normal 7.6-11.0 [facility] Comment on above: Performed By: #### M 100.2200, L400.0001 #### [facility] [address] [facility] [place], [address] Serum or plasma urea nitroge n measurement (mass/volume)Ordered By: Melissa Reed on 01-09-2025 Urea nitrogen [Mass/Vol] 24 mg/dL High 4-19 [facility] Comment on above: Performed By: #### M 100.2200, L400.0001 #### [facility] [address] [place], [address] Sodium levelOrdered By: Rubin Reed on 01-09-2025 Sodium [Moles/Vol] 141 mmol/L Normal 133-145 [facility] Comment on above: Performed By: #### M 100.2200, L400.0001 #### [facility] [address] [facility] [place], [address] Urine Cultureon 12-27-2024 [facility] Copy of report sent to Infection Control Printer [id number] 12/26/24 0739 FELICITAS. Urine Culture CALLED X2, RESULTS CALLED TO DIVYA AND LEFT VOICEMAIL MESSAGE WITH SCOTTY MUÑOZ 12/26/24 6699 Dora Platt. Escherichia coli [place] Count 50,000-80,000 MARKER ESBL producing OrganismA MARKER [...] S Tobramycin Islt LAVINIA <=1 S Normal [facility] Comment on above: Performed By: #### M 100.2200, L400.0001 ####[facility] [address] [facility] [address] Anion gap in Serum or Plasma Ordered By: Melissa Reed on 12-26-2024 Anion gap [Moles/Vol] 9 mmol/L - [facility] BUN/creatinine ratioOrdered By: Melissa Reed on 12-26-2024 Urea nitrogen/Creatinine [Mass ratio] 24.9 mg/mg High - [facility] Basic Metabolic Profile (BMP )on 12-26-2024 BUN/CRE 24.9 RATIO High - [facility] Comment on above: Order Comment: 157 Performed By: #### L 501.5200, L500.2500 #### [facility] [address] [facility] [address] Calcium [Mass/Vol] 8.7 mg/dL Normal 7.6-11.0 [facility] Comment on above: Order Comment: 157 Performed By: #### L 501.5200, L500.2500 #### [facility] [address] [facility] [address] Chloride [Moles/Vol] 103 mmol/L Normal 98-108 [facility] Comment on above: Order Comment: 157 Performed By: #### L 501.5200, L500.2500 #### [facility] [address] [place], [address] CO2 [Moles/Vol] 28.5 mmol/L Normal 21.0-32.0 [facility] Comment on above: Order Comment: 157 Performed By: #### L 501.5200, L500.2500 #### [facility] [address] [place], [address] Creatinine [Mass/Vol] 1.19 mg/dL Normal 0.70-1.20 [facility] Comment on above: Order Comment: 157 Performed By: #### L 501.5200, L500.2500 #### [facility] [address] [place], [address] GAP 9 Normal 5-15 [facility] Comment on above: Order Comment: 157 Performed By: #### L 501.5200, L500.2500 #### [facility] [address] [place], [address] GFR/1.73 sq M.predicted among non-blacks MDRD (S/P/Bld) [Vol rate/Area] 46 mL/min/{1.73_m2} Low >60 [facility] Comment on above: Order Comment: 157 Result Comment: mL/m in/1.73m2 CKD-EPI Creatinine Equation (2020) Performed By: #### L 501.5200, L500.2500 #### [facility] [address] [place], [address] Glucose [Mass/Vol] 162 mg/dL High 70-99 [facility] Comment on above: Order Comment: 157 Performed By: #### L 501.5200, L500.2500 #### [facility] [address] [place], [address] Potassium [Moles/Vol] 4.5 mmol/L Normal 3.3-5.1 [facility] Comment on above: Order Comment: 157 Performed By: #### L 501.5200, L500.2500 #### [facility] [address] [place], [address] Sodium [Moles/Vol] 141 mmol/L Normal 133-145 [facility] Comment on above: Order Comment: 157 Performed By: #### L 501.5200, L500.2500 #### [facility] [address] [place], [address] Urea nitrogen [Mass/Vol] 30 mg/dL High 4-19 [facility] Comment on above: Order Comment: 157 Performed By: #### L 501.5200, L500.2500 #### [facility] [address] [place], [address] Carbon dioxide, total [Moles /volume] in Central venous bloodOrdered By: Melissa Reed on 12-26-2024 CO2 [Moles/Vol] 28.5 mmol/L 21.0-32.0 [facility] Chloride assayOrdered By: Sd Reed on 12-26-2024 Chloride [Moles/Vol] 103 mmol/L 98-108 [facility] Glomerular filtration rate ( GFR) estimation/1.73 sq m using serum, plasma, or whole bOrdered By: Melissa Reed on 12-26-2024 GFR/1.73 sq M.predicted among non-blacks MDRD (S/P/Bld) [Vol rate/Area] 46 mL/min/{1.73_m2} Low >60 [facility] Comment on above: mL/min/1.73m2 CKD-EP I Creatinine Equation (2020) Magnesiumon 12-26-2024 Magnesium [Mass/Vol] 2.2 mg/dL Normal 1.5-2.2 [facility] Comment on above: Order Comment: 157 Performed By: #### L 501.5200, L500.2500 #### [facility] [address] [place], [address] Magnesium measurement (mass/ volume)Ordered By: Melissa Reed on 12-26-2024 Magnesium (Unsp spec) [Mass/Vol] 2.2 mg/dL 1.5-2.2 [facility] Potassium measurement (mass/ volume)Ordered By: Melissa Reed on 12-26-2024 Potassium (Unsp spec) [Mass/Vol] 4.5 mmol/L 3.3-5.1 [facility] Serum creatinine measurement (mass/volume)Ordered By: Melissa Reed on 12-26-2024 Creatinine [Mass/Vol] 1.19 mg/dL 0.70-1.20 [facility] Serum glucose measurement (m ass/volume)Ordered By: Melissa Reed on 12-26-2024 Glucose [Mass/Vol] 162 mg/dL High 70-99 [facility] Serum or plasma calcium danae urement (mass/volume)Ordered By: Melissa Reed on 12-26-2024 Calcium [Mass/Vol] 8.7 mg/dL 7.6-11.0 [facility] Serum or plasma urea nitroge n measurement (mass/volume)Ordered By: Melissa Reed on 12-26-2024 Urea nitrogen [Mass/Vol] 30 mg/dL High 4-19 [facility] Sodium levelOrdered By: Rubin Reed on 12-26-2024 Sodium [Moles/Vol] 141 mmol/L 133-145 [facility] Bilirubin Test strip Ql (U)O rdered By: Melissa Reed on 12-24-2024 Bilirubin Ql (U) Negative Negative [facility] Ketones Test strip Ql (U)Ord ered By: Melissa Reed on 12-24-2024 Ketones Ql (U) Negative Negative [facility] Microscopic analysis of urin e for red blood cells (RBC)Ordered By: Melissa Reed on 12-24-2024 Microscopic analysis of urine for red blood cells (RBC) 0 SEEN /hpf 0-5 [facility] Mucus LM Ql (Urine sed)Order ed By: Melissa Reed on 12-24-2024 Mucus Ql (Urine sed) 0 SEEN /hpf [facility] Nitrite Test strip Ql (U)Ord ered By: Melissa Reed on 12-24-2024 Nitrite Ql (U) Negative Negative [facility] Protein Test strip Ql (U)Ord ered By: Melissa Reed on 12-24-2024 Protein Ql (U) 15 mg/dl High Negative [facility] Squamous epithelial cells de tection in urine sediment by light microscopyOrdered By: Melissa Reed on 12-24-2024 Epithelial cells.squamous LM Ql (Urine sed) 0-5 SEEN /hpf 5-10 [facility] Urinalysis, Completeon 12-24 BACTERIA RARE Normal None Seen [facility] Comment on above: Order Comment: CLEAN CATCH Performed By: #### M 100.2200, L400.0001 ####[facility] [address] [place], [address] EPI,SQUAMOUS 0-5 SEEN Normal 5-10 [facility] Comment on above: Order Comment: CLEAN CATCH Performed By: #### M 100.2200, L400.0001 ####[facility] [address] [place], [address] Mucus Ql (Urine sed) 0 SEEN Normal [facility] Comment on above: Order Comment: CLEAN CATCH Performed By: #### M 100.2200, L400.0001 ####[facility] [address] [place], [address] RBC 0 SEEN Normal 0-5 [facility] Comment on above: Order Comment: CLEAN CATCH Performed By: #### M 100.2200, L400.0001 ####[facility] [address] [place], [address] WBC 0 SEEN Normal 0-5 [facility] Comment on above: Order Comment: CLEAN CATCH Performed By: #### M 100.2200, L400.0001 ####[facility] [address] [place], [address] Urine clarityOrdered By: Lillian Reed on 12-24-2024 Clarity (U) Clear Clear [facility] Urine color determinationOrd ered By: Melissa Reed on 12-24-2024 Color (U) Yellow Yellow [facility] Urine cultureOrdered By: Lillian Reed on 12-24-2024 Bacteria identified Cx Nom (U) Escherichia coli Abnormal [facility] Urine glucose detectionOrder ed By: Melissa Reed on 12-24-2024 Glucose Ql (U) Normal mg/dl Normal [facility] Urine leukocyte esterase det ection by dipstickOrdered By: Melissa Reed on 12-24-2024 Leukocyte esterase Test strip Ql (U) Negative Negative [facility] Urine pHOrdered By: Melissa Heaton udla on 12-24-2024 pH (U) 7.0 [pH] 5.0 - 8.0 [facility] Urine sediment bacteria coun t by microscopy (number/high power field)Ordered By: Melissa Reed on 12-24-2024 Bacteria LM.HPF (Urine sed) [#/Area] RARE /hpf None Seen [facility] Urine specific gravity measu rementOrdered By: Melissa Reed on 12-24-2024 Specific gravity (U) [Rel density] 1.010 1.002-1.030 [facility] Urine urobilinogen measureme ntOrdered By: Melissa Reed on 12-24-2024 Urobilinogen Ql (U) Normal mg/dl Normal [facility] White blood cell countOrdere d By: Melissa Reed on 12-24-2024 White blood cell count 0 SEEN /hpf 0-5 [facility] Anion gap in Serum or Plasma Ordered By: Melissa Reed on 12-12-2024 Anion gap [Moles/Vol] 9 mmol/L 5-15 [facility] BUN/creatinine ratioOrdered By: Melissa Reed on 12-12-2024 Urea nitrogen/Creatinine [Mass ratio] 28.8 mg/mg High 10- [facility] Basic Metabolic Profile (BMP )on 12-12-2024 BUN/CRE 28.8 RATIO [facility] 04-07 [facility] Comment on above: Performed By: #### M 100.2200, L400.0001 #### [facility] [address] [place], [address] Calcium [Mass/Vol] 8.7 mg/dL Normal 7.6-11.0 [facility] Comment on above: Performed By: #### M 100.2200, L400.0001 #### [facility] [address] [place], [address] Chloride [Moles/Vol] 101 mmol/L Normal 98-108 [facility] Comment on above: Performed By: #### M 100.2200, L400.0001 #### [facility] [address] [place], [address] CO2 [Moles/Vol] 27.9 mmol/L Normal 21.0-32.0 [facility] Comment on above: Performed By: #### M 100.2200, L400.0001 #### [facility] [address] [place], [address] Creatinine [Mass/Vol] 0.98 mg/dL Normal 0.70-1.20 [facility] Comment on above: Performed By: #### M 100.2200, L400.0001 #### [facility] [address] [place], [address] GAP 9 Normal 5-15 [facility] Comment on above: Performed By: #### M 100.2200, L400.0001 #### [facility] [address] [place], [address] GFR/1.73 sq M.predicted among non-blacks MDRD (S/P/Bld) [Vol rate/Area] 58 mL/min/{1.73_m2} Low >60 [facility] Comment on above: Result Comment: mL/m in/1.73m2 CKD-EPI Creatinine Equation (2020) Performed By: #### M 100.2200, L400.0001 #### [facility] [address] [place], [address] Glucose [Mass/Vol] 148 mg/dL High 70-99 [facility] Comment on above: Performed By: #### M 100.2200, L400.0001 #### [facility] [address] [place], [address] Potassium [Moles/Vol] 4.0 mmol/L Normal 3.3-5.1 [facility] Comment on above: Performed By: #### M 100.2200, L400.0001 #### [facility] [address] [place], [address] Sodium [Moles/Vol] 139 mmol/L Normal 133-145 [facility] Comment on above: Performed By: #### M 100.2200, L400.0001 #### [facility] [address] [place], [address] Urea nitrogen [Mass/Vol] 28 mg/dL High 4-19 [facility] Comment on above: Performed By: #### M 100.2200, L400.0001 #### [facility] [address] [place], [address] Carbon dioxide, total [Moles /volume] in Central venous bloodOrdered By: Melissa Reed on 12-12-2024 CO2 [Moles/Vol] 27.9 mmol/L 21.0-32.0 [facility] Chloride assayOrdered By: Sd Reed on 12-12-2024 Chloride [Moles/Vol] 101 mmol/L 98-108 [facility] Glomerular filtration rate ( GFR) estimation/1.73 sq m using serum, plasma, or whole bOrdered By: Melissa Reed on 12-12-2024 GFR/1.73 sq M.predicted among non-blacks MDRD (S/P/Bld) [Vol rate/Area] 58 mL/min/{1.73_m2} Low >60 [facility] Comment on above: mL/min/1.73m2 CKD-EP I Creatinine Equation (2020) Magnesiumon 12-12-2024 Magnesium [Mass/Vol] 2.2 mg/dL Normal 1.5-2.2 [facility] Comment on above: Performed By: #### M 100.2200, L400.0001 #### [facility] [address] [place], [address] Magnesium measurement (mass/ volume)Ordered By: Melissa Reed on 12-12-2024 Magnesium (Unsp spec) [Mass/Vol] 2.2 mg/dL 1.5-2.2 [facility] Potassium measurement (mass/ volume)Ordered By: Melissa Reed on 12-12-2024 Potassium (Unsp spec) [Mass/Vol] 4.0 mmol/L 3.3-5.1 [facility] Serum creatinine measurement (mass/volume)Ordered By: Melissa Reed on 12-12-2024 Creatinine [Mass/Vol] 0.98 mg/dL 0.70-1.20 [facility] Serum glucose measurement (m ass/volume)Ordered By: Melissa Reed on 12-12-2024 Glucose [Mass/Vol] 148 mg/dL High 70-99 [facility] Serum or plasma calcium danae urement (mass/volume)Ordered By: Melissa Reed on 12-12-2024 Calcium [Mass/Vol] 8.7 mg/dL 7.6-11.0 [facility] Serum or plasma urea nitroge n measurement (mass/volume)Ordered By: Melissa Reed on 12-12-2024 Urea nitrogen [Mass/Vol] 28 mg/dL High 4-19 [facility] Sodium levelOrdered By: Rubin Reed on 12-12-2024 Sodium [Moles/Vol] 139 mmol/L 133-145 [facility] Anion gap in Serum or Plasma Ordered By: Melissa Reed on 11-28-2024 Anion gap [Moles/Vol] 11 mmol/L 5-15 [facility] BUN/creatinine ratioOrdered By: Melissa Reed on 11-28-2024 Urea nitrogen/Creatinine [Mass ratio] 28.8 mg/mg High 10-20 [facility] [facility] Basic Metabolic Profile (BMP )on 11-28-2024 BUN/CRE 28.8 RATIO High 10-20 [facility] Comment on above: Order Comment: CLEAN CATCH Performed By: #### M 100.2200, L400.0001 #### [facility] [address] [place], [address] Calcium [Mass/Vol] 9.5 mg/dL Normal 7.6-11.0 [facility] Comment on above: Order Comment: CLEAN CATCH Performed By: #### M 100.2200, [id number] #### [facility] [address] [place], [address] Chloride [Moles/Vol] 98 mmol/L Normal 98-108 [facility] Comment on above: Order Comment: CLEAN CATCH Performed By: #### M 100.2200, [id number] #### [facility] [address] [place], [address] CO2 [Moles/Vol] 29.5 mmol/L Normal 21.0-32.0 [facility] Comment on above: Order Comment: CLEAN CATCH Performed By: #### M 100.2200, L400.0001 #### [facility] [address] [place], [address] Creatinine [Mass/Vol] 1.21 mg/dL High 0.70-1.20 [facility] Comment on above: Order Comment: CLEAN CATCH Performed By: #### M 100.2200, L400.0001 #### [facility] [address] [place], [address] GAP 11 Normal 5-15 [facility] Comment on above: Order Comment: CLEAN CATCH Performed By: #### M 100.2200, L400.0001 #### [facility] [address] [place], [address] GFR/1.73 sq M.predicted among non-blacks MDRD (S/P/Bld) [Vol rate/Area] 45 mL/min/{1.73_m2} Low >60 [facility] Comment on above: Order Comment: CLEAN CATCH Result Comment: mL/m in/1.73m2 CKD-EPI Creatinine Equation (2020) Performed By: #### M 100.2200, [id number] #### [facility] [address] [place], [address] Glucose [Mass/Vol] 126 mg/dL High 70-99 [facility] Comment on above: Order Comment: CLEAN CATCH Performed By: #### M 100.2200, L400.0001 #### [facility] [address] [place], [address] Potassium [Moles/Vol] 4.2 mmol/L Normal 3.3-5.1 [facility] Comment on above: Order Comment: CLEAN CATCH Performed By: #### M 100.2200, L400.0001 #### [facility] [address] [place], [address] Sodium [Moles/Vol] 139 mmol/L Normal 133-145 [facility] Comment on above: Order Comment: CLEAN CATCH Performed By: #### M 100.2200, L400.0001 #### [facility] [address] [place], [address] Urea nitrogen [Mass/Vol] 35 mg/dL High 4-19 [facility] Comment on above: Order Comment: CLEAN CATCH Performed By: #### M 100.2200, L400.0001 #### [facility] [address] [place], [address] Carbon dioxide, total [Moles /volume] in Central venous bloodOrdered By: Melissa Reed on 11-28-2024 CO2 [Moles/Vol] 29.5 mmol/L 21.0-32.0 [facility] Chloride assayOrdered By: Sd Reed on 06-12-2025 Chloride [Moles/Vol] 98 mmol/L 98-108 [facility] Glomerular filtration rate ( GFR) estimation/1.73 sq m using serum, plasma, or whole bOrdered By: Melissa Reed on 11-28-2024 GFR/1.73 sq M.predicted among non-blacks MDRD (S/P/Bld) [Vol rate/Area] 45 mL/min/{1.73_m2} Low >60 [facility] Comment on above: mL/min/1.73m2 CKD-EP I Creatinine Equation (2020) Magnesiumon 11-28-2024 Magnesium [Mass/Vol] 2.4 mg/dL High 1.5-2.2 [facility] Comment on above: Order Comment: CLEAN CATCH Performed By: #### M 100.2200, L400.0001 #### [facility] [address] [place], [address] Magnesium measurement (mass/ volume)Ordered By: Melissa Reed on 11-28-2024 Magnesium (Unsp spec) [Mass/Vol] 2.4 mg/dL High 1.5-2.2 [facility] Potassium measurement (mass/ volume)Ordered By: Melissa Reed on 11-28-2024 Potassium (Unsp spec) [Mass/Vol] 4.2 mmol/L 3.3-5.1 [facility] Serum creatinine measurement (mass/volume)Ordered By: Melissa Reed on 11-28-2024 Creatinine [Mass/Vol] 1.21 mg/dL High 0.70-1.20 [facility] Serum glucose measurement (m ass/volume)Ordered By: Melissa Reed on 11-28-2024 Glucose [Mass/Vol] 126 mg/dL High 70-99 [facility] Serum or plasma calcium danae urement (mass/volume)Ordered By: Melissa Reed on 11-28-2024 Calcium [Mass/Vol] 9.5 mg/dL 7.6-11.0 [facility] Serum or plasma urea nitroge n measurement (mass/volume)Ordered By: Melissa Reed on 11-28-2024 Urea nitrogen [Mass/Vol] 35 mg/dL High 4-19 [facility] Sodium levelOrdered By: Rubin Reed on 11-28-2024 Sodium [Moles/Vol] 139 mmol/L 133-145 [facility] Anion gap in Serum or Plasma Ordered By: Melissa Reed on 11-14-2024 Anion gap [Moles/Vol] 9 mmol/L 5- [facility] BUN/creatinine ratioOrdered By: Melissa Reed on 11-14-2024 Urea nitrogen/Creatinine [Mass ratio] 21.3 mg/mg High - [facility] Basic Metabolic Profile (BMP )on 11-14-2024 BUN/CRE 21.3 RATIO High 04-07 [facility] Comment on above: Performed By: #### L 501.5200, L500.2500 #### [facility] [address] [place], [address] Calcium [Mass/Vol] 8.6 mg/dL Normal 7.6-11.0 [facility] Comment on above: Performed By: #### L 501.5200, L500.2500 #### [facility] [address] [place], [address] Chloride [Moles/Vol] 101 mmol/L Normal 98-108 [facility] Comment on above: Performed By: #### L 501.5200, L500.2500 #### [facility] [address] [place], [address] CO2 [Moles/Vol] 29.7 mmol/L Normal 21.0-32.0 [facility] Comment on above: Performed By: #### L 501.5200, L500.2500 #### [facility] [address] [place], [address] Creatinine [Mass/Vol] 1.04 mg/dL Normal 0.70-1.20 [facility] Comment on above: Performed By: #### L 501.5200, L500.2500 #### [facility] [address] [place], [address] GAP 9 Normal 5-15 [facility] Comment on above: Performed By: #### L 501.5200, L500.2500 #### [facility] [address] [place], [address] GFR/1.73 sq M.predicted among non-blacks MDRD (S/P/Bld) [Vol rate/Area] 54 mL/min/{1.73_m2} Low >60 [facility] Comment on above: Result Comment: mL/m in/1.73m2 CKD-EPI Creatinine Equation (2020) Performed By: #### L 501.5200, L500.2500 #### [facility] [address] [place], [address] Glucose [Mass/Vol] 179 mg/dL High 70-99 [facility] Comment on above: Performed By: #### L 501.5200, L500.2500 #### [facility] [address] [place], [address] Potassium [Moles/Vol] 4.1 mmol/L Normal 3.3-5.1 [facility] Comment on above: Performed By: #### L 501.5200, L500.2500 #### [facility] [address] [place], [address] Sodium [Moles/Vol] 140 mmol/L Normal 133-145 [facility] Comment on above: Performed By: #### L 501.5200, L500.2500 #### [facility] [address] [place], [address] Urea nitrogen [Mass/Vol] 22 mg/dL High 4-19 [facility] Comment on above: Performed By: #### L 501.5200, L500.2500 #### [facility] [address] [place], [address] Carbon dioxide, total [Moles /volume] in Central venous bloodOrdered By: Melissa Reed on 11-14-2024 CO2 [Moles/Vol] 29.7 mmol/L 21.0-32.0 [facility] Chloride assayOrdered By: Sd Reed on 11-14-2024 Chloride [Moles/Vol] 101 mmol/L 98-108 [facility] Glomerular filtration rate ( GFR) estimation/1.73 sq m using serum, plasma, or whole bOrdered By: Melissa Reed on 11-14-2024 GFR/1.73 sq M.predicted among non-blacks MDRD (S/P/Bld) [Vol rate/Area] 54 mL/min/{1.73_m2} Low >60 [facility] Comment on above: mL/min/1.73m2 CKD-EP I Creatinine Equation (2020) Magnesiumon 11-14-2024 Magnesium [Mass/Vol] 2.1 mg/dL Normal 1.5-2.2 [facility] Comment on above: Performed By: #### L 501.5200, L500.2500 #### [facility] [address] [facility] [place], [address] Magnesium measurement (mass/ volume)Ordered By: Melissa Reed on 11-14-2024 Magnesium (Unsp spec) [Mass/Vol] 2.1 mg/dL 1.5-2.2 [facility] Potassium measurement (mass/ volume)Ordered By: Melissa Reed on 11-14-2024 Potassium (Unsp spec) [Mass/Vol] 4.1 mmol/L 3.3-5.1 [facility] Serum creatinine measurement (mass/volume)Ordered By: Melissa Reed on 11-14-2024 Creatinine [Mass/Vol] 1.04 mg/dL 0.70-1.20 [facility] Serum glucose measurement (m ass/volume)Ordered By: Melissa Reed on 11-14-2024 Glucose [Mass/Vol] 179 mg/dL High 70-99 [facility] Serum or plasma calcium danae urement (mass/volume)Ordered By: Melissa Reed on 11-14-2024 Calcium [Mass/Vol] 8.6 mg/dL 7.6-11.0 [facility] Serum or plasma urea nitroge n measurement (mass/volume)Ordered By: Melissa Reed on 11-14-2024 Urea nitrogen [Mass/Vol] 22 mg/dL High - [facility] Sodium levelOrdered By: Rubin Reed on 11-14-2024 Sodium [Moles/Vol] 140 mmol/L 133-145 [facility] Anion gap in Serum or Plasma Ordered By: Melissa Reed on 11-08-2024 Anion gap [Moles/Vol] 10 mmol/L 5-15 [facility] BUN/creatinine ratioOrdered By: Melissa Reed on 11-08-2024 Urea nitrogen/Creatinine [Mass ratio] 24.4 mg/mg High - [facility] Basic Metabolic Profile (BMP )on 11-08-2024 BUN/CRE 24.4 RATIO High 04-07 [facility] Comment on above: Order Comment: CLEAN CATCH Performed By: #### M 100.2200, L400.0001 #### [facility] [address] [place], [address] Calcium [Mass/Vol] 8.8 mg/dL Normal 7.6-11.0 [facility] Comment on above: Order Comment: CLEAN CATCH Performed By: #### M 100.2200, L400.0001 #### [facility] [address] [place], [address] Chloride [Moles/Vol] 101 mmol/L Normal 98-108 [facility] Comment on above: Order Comment: CLEAN CATCH Performed By: #### M 100.2200, L400.0001 #### [facility] [address] [place], [address] CO2 [Moles/Vol] 28.3 mmol/L Normal 21.0-32.0 [facility] Comment on above: Order Comment: CLEAN CATCH Performed By: #### M 100.2200, L400.0001 #### [facility] [address] [place], [address] Creatinine [Mass/Vol] 1.08 mg/dL Normal 0.70-1.20 [facility] Comment on above: Order Comment: CLEAN CATCH Performed By: #### M 100.2200, L400.0001 #### [facility] [address] [place], [address] GAP 10 Normal 5-15 [facility] Comment on above: Order Comment: CLEAN CATCH Performed By: #### M 100.2200, L400.0001 #### [facility] [address] [place], [address] GFR/1.73 sq M.predicted among non-blacks MDRD (S/P/Bld) [Vol rate/Area] 52 mL/min/{1.73_m2} Low >60 [facility] Comment on above: Order Comment: CLEAN CATCH Result Comment: mL/m in/1.73m2 CKD-EPI Creatinine Equation (2020) Performed By: #### M 100.2200, L400.0001 #### [facility] [address] [place], [address] Glucose [Mass/Vol] 104 mg/dL High 70-99 [facility] Comment on above: Order Comment: CLEAN CATCH Performed By: #### M 100.2200, L400.0001 #### [facility] [address] [place], [address] Potassium [Moles/Vol] 3.6 mmol/L Normal 3.3-5.1 [facility] Comment on above: Order Comment: CLEAN CATCH Performed By: #### M 100.2200, L400.0001 #### [facility] [address] [place], [address] Sodium [Moles/Vol] 138 mmol/L Normal 133-145 [facility] Comment on above: Order Comment: CLEAN CATCH Performed By: #### M 100.2200, L400.0001 #### [facility] [address] [place], [address] Urea nitrogen [Mass/Vol] 26 mg/dL High 4-19 [facility] Comment on above: Order Comment: CLEAN CATCH Performed By: #### M 100.2200, L400.0001 #### [facility] [address] [place], [address] Bilirubin directOrdered By: Melissa Reed on 11-08-2024 Bilirubin.direct [Mass/Vol] 0.22 mg/dL 0.00-0.30 [facility] Bilirubin, totalOrdered By: Melissa Reed on 11-08-2024 Bilirubin [Mass/Vol] 0.46 mg/dL 0.00-1.30 [facility] CBC-Complete Blood Cnt No Di ffon 11-08-2024 Erythrocyte distribution width (RBC) [Ratio] 12.8 % Normal 11.6-14.6 [facility] Comment on above: Order Comment: CLEAN CATCH Performed By: #### M 100.2200, L400.0001 #### [facility] [address] [place], [address] Hematocrit (Bld) [Volume fraction] 36.6 % Low 37-47 [facility] Comment on above: Order Comment: CLEAN CATCH Performed By: #### M 100.2200, L400.0001 #### [facility] [address] [place], [address] Hemoglobin (Bld) [Mass/Vol] 11.6 g/dL Low 12.0-15.0 [facility] Comment on above: Order Comment: CLEAN CATCH Performed By: #### M 100.2200, L400.0001 #### [facility] [address] [place], [address] MCH (RBC) [Entitic mass] 30.9 pg Normal 27.0-32.0 [facility] Comment on above: Order Comment: CLEAN CATCH Performed By: #### M 100.2200, L400.0001 #### [facility] [address] [place], [address] MCHC (RBC) [Mass/Vol] 31.7 g/dL Low 32-36 [facility] Comment on above: Order Comment: CLEAN CATCH Performed By: #### M 100.2200, L400.0001 #### [facility] [address] [place], [address] MCV (RBC) [Entitic vol] 97.6 fL Normal 81-99 [facility] Comment on above: Order Comment: CLEAN CATCH Performed By: #### M 100.2200, L400.0001 #### [facility] [address] [place], [address] Platelet mean volume (Bld) [Entitic vol] 10.2 fL Normal 6.2-12.0 [facility] Comment on above: Order Comment: CLEAN CATCH Performed By: #### M 100.2200, L400.0001 #### [facility] [address] [place], [address] Platelets (Bld) [#/Vol] 228 10*3/uL Normal 150-450 [facility] Comment on above: Order Comment: CLEAN CATCH Performed By: #### M 100.2200, L400.0001 #### [facility] [address] [place], [address] RBC (Bld) [#/Vol] 3.75 10*6/uL Low 4.2-5.4 [facility] Comment on above: Order Comment: CLEAN CATCH Performed By: #### M 100.2200, L400.0001 #### [facility] [address] [place], [address] RDW SD 46.0 fl High 35.1-43.9 [facility] Comment on above: Order Comment: CLEAN CATCH Performed By: #### M 100.2200, L400.0001 #### [facility] [address] [place], [place], [address] WBC (Bld) [#/Vol] 8.4 10*3/uL Normal 4.4-11.0 [facility] Comment on above: Order Comment: CLEAN CATCH Performed By: #### M 100.2200, L400.0001 #### [facility] [address] [place], [place], [address] Carbon dioxide, total [Moles /volume] in Central venous bloodOrdered By: Melissa Reed on 11-08-2024 CO2 [Moles/Vol] 28.3 mmol/L 21.0-32.0 [facility] Chloride assayOrdered By: Sd Reed on 11-08-2024 Chloride [Moles/Vol] 101 mmol/L 98-108 [facility] Erythrocyte distribution wid th ratioOrdered By: Melissa Reed on 11-08-2024 Erythrocyte distribution width (RBC) [Ratio] 12.8 % 11.6-14.6 [facility] Erythrocyte distribution wid th standard deviationOrdered By: Melissa Reed on 11-08-2024 Erythrocyte distribution width (RBC) [Ratio] 46.0 fl High 35.1-43.9 [facility] Glomerular filtration rate ( GFR) estimation/1.73 sq m using serum, plasma, or whole bOrdered By: Melissa Reed on 11-08-2024 GFR/1.73 sq M.predicted among non-blacks MDRD (S/P/Bld) [Vol rate/Area] 52 mL/min/{1.73_m2} Low >60 [facility] Comment on above: mL/min/1.73m2 CKD-EP I Creatinine Equation (2020) Hematocrit Auto (Bld) [Volum e fraction]Ordered By: Melissa Reed on 11-08-2024 Hematocrit (Bld) [Volume fraction] 36.6 % Low 37-47 [facility] Hemoglobin measurementOrdere d By: Melissa Reed on 11-08-2024 Hemoglobin (Bld) [Mass/Vol] 11.6 g/dL Low 12.0-15.0 [facility] - Chemistry and C hemistry - challengeOrdered By: Melissa Reed on 11-08-2024 AST [Catalytic activity/Vol] 81 U/L High <32 [facility] Liver Profileon 11-08-2024 Albumin [Mass/Vol] 3.3 g/dL Low 3.4-4.8 [facility] Comment on above: Order Comment: CLEAN CATCH Performed By: #### M 100.2200, L400.0001 #### [facility] [address] [place], [address] ALK PHOS 110 U/L High 35-104 [facility] Comment on above: Order Comment: CLEAN CATCH Performed By: #### M 100.2200, L400.0001 #### [facility] [address] [place], [address] ALT [Catalytic activity/Vol] 87 U/L High <=34 [facility] Comment on above: Order Comment: CLEAN CATCH Performed By: #### M 100.2200, L400.0001 #### [facility] [address] [place], [address] AST [Catalytic activity/Vol] 81 U/L High <=31 [facility] Comment on above: Order Comment: CLEAN CATCH Performed By: #### M 100.2200, L400.0001 #### [facility] [address] [place], [address] Bilirubin [Mass/Vol] 0.46 mg/dL Normal 0.00-1.30 [facility] Comment on above: Order Comment: CLEAN CATCH Performed By: #### M 100.2200, L400.0001 #### [facility] [address] [place], [address] Bilirubin.direct [Mass/Vol] 0.22 mg/dL Normal 0.00-0.30 [facility] Comment on above: Order Comment: CLEAN CATCH Performed By: #### M 100.2200, L400.0001 #### [facility] [address] [place], [address] Globulin (S) [Mass/Vol] 2.9 g/dL Normal 2.2-4.2 [facility] Comment on above: Order Comment: CLEAN CATCH Performed By: #### M 100.2200, L400.0001 #### [facility] [address] [place], [address] T PROT 6.3 g/dL Normal 5.9-8.4 [facility] Comment on above: Order Comment: CLEAN CATCH Performed By: #### M 100.2200, L400.0001 #### [facility] [address] [place], [address] MCV (mean corpuscular volume ) determinationOrdered By: Melissa Reed on 11-08-2024 MCV (RBC) [Entitic vol] 97.6 fL 81-99 [facility] Magnesiumon 11-08-2024 Magnesium [Mass/Vol] 1.8 mg/dL Normal 1.5-2.2 [facility] Comment on above: Order Comment: CLEAN CATCH Performed By: #### M 100.2200, L400.0001 #### [facility] [address] [place], [address] Magnesium measurement (mass/ volume)Ordered By: Melissa Reed on 11-08-2024 Magnesium (Unsp spec) [Mass/Vol] 1.8 mg/dL 1.5-2.2 [facility] Mean corpuscular hemoglobin (MCH) determinationOrdered By: Melissa Reed on 11-08-2024 MCH (RBC) [Entitic mass] 30.9 pg 27.0-32.0 [facility] Mean corpuscular hemoglobin concentration (MCHC) determinationOrdered By: Melissa Reed on 11-08-2024 MCHC (RBC) [Mass/Vol] 31.7 g/dL Low 32-36 [facility] Mean platelet volume determi nationOrdered By: Melissa Reed on 11-08-2024 Platelet mean volume (Bld) [Entitic vol] 10.2 fL 6.2-12.0 [facility] Platelet countOrdered By: Sd Reed on 11-08-2024 Platelets (Bld) [#/Vol] 228 10*3/uL 150-450 [facility] Potassium measurement (mass/ volume)Ordered By: Melissa Reed on 11-08-2024 Potassium (Unsp spec) [Mass/Vol] 3.6 mmol/L 3.3-5.1 [facility] RBC Auto (Bld) [#/Vol]Ordere d By: Melissa Reed on 11-08-2024 RBC (Bld) [#/Vol] 3.75 10*6/uL Low 4.2-5.4 [facility] Serum creatinine measurement (mass/volume)Ordered By: Melissa Reed on 11-08-2024 Creatinine [Mass/Vol] 1.08 mg/dL 0.70-1.20 [facility] Serum globulin measurementOr dered By: Melissa Reed on 11-08-2024 Globulin (S) [Mass/Vol] 2.9 g/dL 2.2-4.2 [facility] Serum glucose measurement (m ass/volume)Ordered By: Melissa Reed on 11-08-2024 Glucose [Mass/Vol] 104 mg/dL High 70-99 [facility] Serum or plasma alanine bro otransferase (ALT) measurementOrdered By: Melissa Reed on 11-08-2024 ALT [Catalytic activity/Vol] 87 U/L High <35 [facility] Serum or plasma albumin danae urement (mass/volume)Ordered By: Melissa Reed on 11-08-2024 Albumin [Mass/Vol] 3.3 g/dL Low 3.4-4.8 [facility] Serum or plasma alkaline moustapha sphatase measurementOrdered By: Melissa Reed on 11-08-2024 ALP [Catalytic activity/Vol] 110 U/L High 35-104 [facility] Serum or plasma calcium danae urement (mass/volume)Ordered By: Melissa Reed on 11-08-2024 Calcium [Mass/Vol] 8.8 mg/dL 7.6-11.0 [facility] Serum or plasma urea nitroge n measurement (mass/volume)Ordered By: Melissa Reed on 11-08-2024 Urea nitrogen [Mass/Vol] 26 mg/dL High 4-19 [facility] Sodium levelOrdered By: Rubin Reed on 11-08-2024 Sodium [Moles/Vol] 138 mmol/L 133-145 [facility] Total proteinOrdered By: Lillian Reed on 11-08-2024 Protein [Mass/Vol] 6.3 g/dL 5.9-8.4 [facility] White blood cell (WBC) count Ordered By: Melissa Reed on 11-08-2024 WBC (Bld) [#/Vol] 8.4 10*3/uL 4.4-11.0 [facility] Anion gap in Serum or Plasma Ordered By: Melissa Reed on 10-17-2024 Anion gap [Moles/Vol] 9 mmol/L 5-15 [facility] BUN/creatinine ratioOrdered By: Melissa Reed on 10-17-2024 Urea nitrogen/Creatinine [Mass ratio] 28.5 mg/mg High 10- [facility] Basic Metabolic Profile (BMP )on 10-17-2024 BUN/CRE 28.5 RATIO High 10- [facility] Comment on above: Order Comment: CLEAN CATCH Performed By: #### M 100, L400.0001 #### [facility] [address] [place], [address] Calcium [Mass/Vol] 8.7 mg/dL Normal 7.6-11.0 [facility] Comment on above: Order Comment: CLEAN CATCH Performed By: #### M 100, L400.0001 #### [facility] [address] [place], [address] Chloride [Moles/Vol] 103 mmol/L Normal 98-108 [facility] Comment on above: Order Comment: CLEAN CATCH Performed By: #### M 100, L400.0001 #### [facility] [address] [place], [address] CO2 [Moles/Vol] 28.9 mmol/L Normal 21.0-32.0 [facility] Comment on above: Order Comment: CLEAN CATCH Performed By: #### M 100.2200, L400.0001 #### [facility] [address] [place], [address] Creatinine [Mass/Vol] 1.04 mg/dL Normal 0.70-1.20 [facility] Comment on above: Order Comment: CLEAN CATCH Performed By: #### M 100.0, L400.0001 #### [facility] [address] [place], [address] GAP 9 Normal 5-15 [facility] Comment on above: Order Comment: CLEAN CATCH Performed By: #### M 100.0, L400.0001 #### [facility] [address] [place], [address] GFR/1.73 sq M.predicted among non-blacks MDRD (S/P/Bld) [Vol rate/Area] 54 mL/min/{1.73_m2} Low >60 [facility] Comment on above: Order Comment: CLEAN CATCH Result Comment: mL/m in/1.73m2 CKD-EPI Creatinine Equation (2020) Performed By: #### M 100.0, L400.0001 #### [facility] [address] [place], [address] Glucose [Mass/Vol] 106 mg/dL High 70-99 [facility] Comment on above: Order Comment: CLEAN CATCH Performed By: #### M 100.2200, L400.0001 #### [facility] [address] [place], [address] Potassium [Moles/Vol] 3.8 mmol/L Normal 3.3-5.1 [facility] Comment on above: Order Comment: CLEAN CATCH Performed By: #### M 100.2200, L400.0001 #### [facility] [address] [place], [address] Sodium [Moles/Vol] 140 mmol/L Normal 133-145 [facility] Comment on above: Order Comment: CLEAN CATCH Performed By: #### M 100.2200, [id number] #### [facility] [address] [place], [address] Urea nitrogen [Mass/Vol] 30 mg/dL High 4-19 [facility] Comment on above: Order Comment: CLEAN CATCH Performed By: #### M 100.2200, L400.0001 #### [facility] [address] [place], [address] Carbon dioxide, total [Moles /volume] in Central venous bloodOrdered By: Melissa Reed on 10-17-2024 CO2 [Moles/Vol] 28.9 mmol/L 21.0-32.0 [facility] Chloride assayOrdered By: Sd Reed on 10-17-2024 Chloride [Moles/Vol] 103 mmol/L 98-108 [facility] Glomerular filtration rate ( GFR) estimation/1.73 sq m using serum, plasma, or whole bOrdered By: Melissa Reed on 10-17-2024 GFR/1.73 sq M.predicted among non-blacks MDRD (S/P/Bld) [Vol rate/Area] 54 mL/min/{1.73_m2} Low >60 [facility] Comment on above: mL/min/1.73m2 CKD-EP I Creatinine Equation (2020) Magnesiumon 10-17-2024 Magnesium [Mass/Vol] 2.3 mg/dL High 1.5-2.2 [facility] Comment on above: Order Comment: CLEAN CATCH Performed By: #### M 100.2200, L400.0001 #### [facility] [address] [place], [address] Magnesium measurement (mass/ volume)Ordered By: Melissa Reed on 10-17-2024 Magnesium (Unsp spec) [Mass/Vol] 2.3 mg/dL High 1.5-2.2 [facility] Potassium measurement (mass/ volume)Ordered By: Melissa Reed on 10-17-2024 Potassium (Unsp spec) [Mass/Vol] 3.8 mmol/L 3.3-5.1 [facility] Serum creatinine measurement (mass/volume)Ordered By: Melissa Reed on 10-17-2024 Creatinine [Mass/Vol] 1.04 mg/dL 0.70-1.20 [facility] Serum glucose measurement (m ass/volume)Ordered By: Melissa Reed on 10-17-2024 Glucose [Mass/Vol] 106 mg/dL High 70-99 [facility] Serum or plasma calcium danae urement (mass/volume)Ordered By: Melissa Reed on 10-17-2024 Calcium [Mass/Vol] 8.7 mg/dL 7.6-11.0 [facility] Serum or plasma urea nitroge n measurement (mass/volume)Ordered By: Melissa Reed on 10-17-2024 Urea nitrogen [Mass/Vol] 30 mg/dL High 4-19 [facility] Sodium levelOrdered By: Rubin Reed on 10-17-2024 Sodium [Moles/Vol] 140 mmol/L 133-145 [facility] Anion gap in Serum or Plasma Ordered By: Melissa Reed on 10-03-2024 Anion gap [Moles/Vol] 10 mmol/L 5-15 [facility] BUN/creatinine ratioOrdered By: Melissa Reed on 10-03-2024 Urea nitrogen/Creatinine [Mass ratio] 24.4 mg/mg High 10- [facility] Basic Metabolic Profile (BMP )on 10-03-2024 BUN/CRE 24.4 RATIO High - [facility] Comment on above: Order Comment: 157 Performed By: #### L 501.5200, L500.2500 #### [facility] [place], [address] Calcium [Mass/Vol] 8.7 mg/dL Normal 7.6-11.0 [facility] Comment on above: Order Comment: 157 Performed By: #### L 501.5200, L500.2500 #### [facility] [address] [place], [address] Chloride [Moles/Vol] 102 mmol/L Normal 98-108 [facility] Comment on above: Order Comment: 157 Performed By: #### L 501.5200, L500.2500 #### [facility] [address] [place], [address] CO2 [Moles/Vol] 27.9 mmol/L Normal 21.0-32.0 [facility] Comment on above: Order Comment: 157 Performed By: #### L 501.5200, L500.2500 #### [facility] [address] [place], [address] Creatinine [Mass/Vol] 1.08 mg/dL Normal 0.70-1.20 [facility] Comment on above: Order Comment: 157 Performed By: #### L 501.5200, L500.2500 #### [facility] [address] [place], [address] GAP 10 Normal 5-15 [facility] Comment on above: Order Comment: 157 Performed By: #### L 501.5200, L500.2500 #### [facility] [address] [place], [address] GFR/1.73 sq M.predicted among non-blacks MDRD (S/P/Bld) [Vol rate/Area] 52 mL/min/{1.73_m2} Low >60 [facility] Comment on above: Order Comment: 157 Result Comment: mL/m in/1.73m2 CKD-EPI Creatinine Equation (2020) Performed By: #### L 501.5200, L500.2500 #### [facility] [address] [place], [address] Glucose [Mass/Vol] 179 mg/dL High 70-99 [facility] Comment on above: Order Comment: 157 Performed By: #### L 501.5200, L500.2500 #### [facility] [address] [place], [address] Potassium [Moles/Vol] 3.8 mmol/L Normal 3.3-5.1 [facility] Comment on above: Order Comment: 157 Performed By: #### L 501.5200, L500.2500 #### [facility] [address] [place], [address] Sodium [Moles/Vol] 139 mmol/L Normal 133-145 [facility] Comment on above: Order Comment: 157 Performed By: #### L 501.5200, L500.2500 #### [facility] [address] [place], [address] Urea nitrogen [Mass/Vol] 26 mg/dL High 4-19 [facility] Comment on above: Order Comment: 157 Performed By: #### L 501.5200, L500.2500 #### [facility] [address] [place], [address] Carbon dioxide, total [Moles /volume] in Central venous bloodOrdered By: Melissa Reed on 10-03-2024 CO2 [Moles/Vol] 27.9 mmol/L 21.0-32.0 [facility] Chloride assayOrdered By: Sd Reed on 10-03-2024 Chloride [Moles/Vol] 102 mmol/L 98-108 [facility] GFR/1.73 sq M.predicted denise g non-blacks MDRD (S/P/Bld) [Vol rate/Area]Ordered By: Melissa Reed on 10-03-2024 Estimated GFR (MDRD) Non-Af Amer 52 Low >60 [facility] Comment on above: mL/min/1.73m2 CKD-EP I Creatinine Equation (2020) Glomerular filtration rate ( GFR) estimation/1.73 sq m using serum, plasma, or whole bOrdered By: Melissa Reed on 10-03-2024 GFR/1.73 sq M.predicted among non-blacks MDRD (S/P/Bld) [Vol rate/Area] 52 mL/min/{1.73_m2} Low >60 [facility] Comment on above: mL/min/1.73m2 CKD-EP I Creatinine Equation (2020) Hemoglobin A1con 10-03-2024 HbA1c (Bld) [Mass fraction] 5.9 % High <=5.6 [facility] Comment on above: Order Comment: 157 Result Comment: Norm al < 5.7 % Prediabetic 5.7 - 6.4 % Diabetic >or= 6.5 % Please note range changes. Performed By: #### L 501.5200, L500.2500 #### [facility] [address] [place], [place], [id number] Hemoglobin A1c percentageOrd ered By: Melissa Reed on 10-03-2024 HbA1c (Bld) [Mass fraction] 5.9 % High <5.7 [facility] Comment on above: Normal < 5.7 % Predi abetic 5.7 - 6.4 % Diabetic >or= 6.5 % Please note range changes. Magnesiumon 10-03-2024 Magnesium [Mass/Vol] 2.2 mg/dL Normal 1.5-2.2 [facility] Comment on above: Order Comment: 157 Performed By: #### L 501.5200, L500.2500 #### [facility] [address] [place], [place], [id number] Magnesium (Unsp spec) [Mass/ Vol]Ordered By: Melissa Reed on 10-03-2024 Magnesium [Mass/Vol] 2.2 mg/dL 1.5-2.2 [facility] Magnesium measurement (mass/ volume)Ordered By: Melissa Reed on 10-03-2024 Magnesium (Unsp spec) [Mass/Vol] 2.2 mg/dL 1.5-2.2 [facility] Potassium (Unsp spec) [Mass/ Vol]Ordered By: Melissa Reed on 10-03-2024 Potassium [Moles/Vol] 3.8 mmol/L 3.3-5.1 [facility] Potassium measurement (mass/ volume)Ordered By: Melissa Reed on 10-03-2024 Potassium (Unsp spec) [Mass/Vol] 3.8 mmol/L 3.3-5.1 [facility] Serum creatinine measurement (mass/volume)Ordered By: Melissa Reed on 10-03-2024 Creatinine [Mass/Vol] 1.08 mg/dL 0.70-1.20 [facility] Serum glucose measurement (m ass/volume)Ordered By: Melissa Reed on 10-03-2024 Glucose [Mass/Vol] 179 mg/dL High 70-99 [facility] Serum or plasma calcium danae urement (mass/volume)Ordered By: Melissa Reed on 10-03-2024 Calcium [Mass/Vol] 8.7 mg/dL 7.6-11.0 [facility] Serum or plasma urea nitroge n measurement (mass/volume)Ordered By: Melissa Reed on 10-03-2024 Urea nitrogen [Mass/Vol] 26 mg/dL High 4-19 [facility] Sodium levelOrdered By: Rubin Reed on 10-03-2024 Sodium [Moles/Vol] 139 mmol/L 133-145 [facility] Urine Cultureon 09-26-2024 [facility] Results called on 09/26/24-1126 by MARYLOU to [facility] (RIZWAN) . Copy of report sent to Infection Control Printer [id number] 09/25/24 1616 FELICITAS. ESBL Escherichia coli [place] Count 25,000-50,000 MARKER ESBL producing OrganismA MARKER [...] S Tobramycin Islt LAVINIA <=1 S Normal [facility] Comment on above: Performed By: #### M 100.2200, L400.0001 #### [facility] [address] [place], [address] Bacteria LM.HPF (Urine sed) [#/Area]Ordered By: Melissa Reed on 09-23-2024 Urine Bacteria RARE /hpf None Seen [facility] Bilirubin Test strip Ql (U)O rdered By: Melissa Reed on 09-23-2024 Bilirubin Ql (U) Negative Negative [facility] Epithelial cells.squamous LM Ql (Urine sed)Ordered By: Melissa Reed on 09-23-2024 Epithelial cells.squamous LM.HPF (Urine sed) [#/Area] 0 /[HPF] 5-10 [facility] Glucose Ql (U)Ordered By: Sd Reed on 09-23-2024 Urine Glucose (UA) Normal mg/dl Normal [facility] Ketones Test strip Ql (U)Ord ered By: Melissa Reed on 09-23-2024 Ketones Ql (U) Negative Negative [facility] Microscopic analysis of urin e for red blood cells (RBC)Ordered By: Melissa Reed on 09-23-2024 Microscopic analysis of urine for red blood cells (RBC) 0 SEEN /hpf 0-5 [facility] Urine RBC 0 SEEN /hpf 0-5 [facility] Mucus LM Ql (Urine sed)Order ed By: Melissa Reed on 09-23-2024 Mucus Ql (Urine sed) 0 SEEN /hpf [facility] Nitrite Test strip Ql (U)Ord ered By: Melissa Reed on 09-23-2024 Nitrite Ql (U) Negative Negative [facility] Protein Test strip Ql (U)Ord ered By: Melissa Reed on 09-23-2024 Protein Ql (U) 30 mg/dl High Negative [facility] Squamous epithelial cells de tection in urine sediment by light microscopyOrdered By: Melissa Reed on 09-23-2024 Epithelial cells.squamous LM Ql (Urine sed) 0-5 SEEN /hpf 5-10 [facility] Urinalysis, Completeon 09-23 BACTERIA RARE Normal None Seen [facility] Comment on above: Order Comment: CLEAN CATCH Performed By: #### M 100.2200, L400.0001 #### [facility] [address] [place], [address] EPI,SQUAMOUS 0-5 SEEN Normal 5-10 [facility] Comment on above: Order Comment: CLEAN CATCH Performed By: #### M 100.2200, L400.0001 #### [facility] [address] [place], [address] WBC 50-100 SEEN Normal 0-5 [facility] Comment on above: Order Comment: CLEAN CATCH Performed By: #### M 100.2200, L400.0001 #### [facility] [address] [place], [address] Mucus Ql (Urine sed) 0 SEEN Normal [facility] Comment on above: Order Comment: CLEAN CATCH Performed By: #### M 100.2200, L400.0001 #### [facility] [address] [place], [address] RBC 0 SEEN Normal 0-5 [facility] Comment on above: Order Comment: CLEAN CATCH Performed By: #### M 100.2200, L400.0001 #### [facility] [address] [place], [address] Urine blood detectionOrdered By: Melissa Reed on 09-23-2024 Urine Occult Blood 25 /ul High Negative [facility] Urine clarityOrdered By: Lillian Reed on 09-23-2024 Clarity (U) Sl. Cloudy Clear [facility] Urine color determinationOrd ered By: Melissa Reed on 09-23-2024 Color (U) Yellow Yellow [facility] Urine cultureOrdered By: Lillian Reed on 09-23-2024 Bacteria identified Cx Nom (U) ESBL Escherichia coli Abnormal [facility] Urine glucose detectionOrder ed By: Melissa Reed on 09-23-2024 Glucose Ql (U) Normal mg/dl Normal [facility] Urine leukocyte esterase det ection by dipstickOrdered By: Melissa Reed on 09-23-2024 Leukocyte esterase Test strip Ql (U) 500 /ul High Negative [facility] Urine pHOrdered By: Melissa Heaton udla on 09-23-2024 pH (U) 6.0 [pH] 5.0 - 8.0 [facility] Urine sediment bacteria coun t by microscopy (number/high power field)Ordered By: Melissa Reed on 09-23-2024 Bacteria LM.HPF (Urine sed) [#/Area] RARE /hpf None Seen [facility] Urine specific gravity measu rementOrdered By: Melissa Reed on 09-23-2024 Specific gravity (U) [Rel density] 1.015 1.002-1.030 [facility] Urine urobilinogen measureme ntOrdered By: Melissa Reed on 09-23-2024 Urobilinogen Ql (U) Normal mg/dl Normal [facility] Urobilinogen Ql (U)Ordered B y: Melissa Reed on 09-23-2024 Urine Urobilinogen Normal mg/dl Normal [facility] White blood cell countOrdere d By: Melissa Reed on 09-23-2024 Urine WBC 50-100 SEEN /hpf 0-5 [facility] White blood cell count 50-100 SEEN /hpf 0-5 [facility] Anion gap in Serum or Plasma Ordered By: Melissa Reed on 09-19-2024 Anion gap [Moles/Vol] 9 mmol/L 5-15 [facility] BUN/creatinine ratioOrdered By: Melissa Reed on 09-19-2024 Urea nitrogen/Creatinine [Mass ratio] 30.0 mg/mg High 10-20 [facility] Basic Metabolic Profile (BMP )on 09-19-2024 BUN/CRE 30.0 RATIO High 10-20 [facility] Comment on above: Order Comment: 157 Performed By: #### M 100.2200, L400.0001 #### [facility] [address] [place], [address] Calcium [Mass/Vol] 8.6 mg/dL Normal 7.6-11.0 [facility] Comment on above: Order Comment: 157 Performed By: #### M 100.2200, L400.0001 #### [facility] [address] [place], [address] Chloride [Moles/Vol] 103 mmol/L Normal 98-108 [facility] Comment on above: Order Comment: 157 Performed By: #### M 100.2200, L400.0001 #### [facility] [address] [place], [address] CO2 [Moles/Vol] 27.2 mmol/L Normal 21.0-32.0 [facility] Comment on above: Order Comment: 157 Performed By: #### M 100.2200, L400.0001 #### [facility] [address] [place], [address] Creatinine [Mass/Vol] 1.13 mg/dL Normal 0.70-1.20 [facility] Comment on above: Order Comment: 157 Performed By: #### M 100.2200, L400.0001 #### [facility] [address] [place], [address] GAP 9 Normal 5-15 [facility] Comment on above: Order Comment: 157 Performed By: #### M 100.2200, L400.0001 #### [facility] [address] [place], [address] GFR/1.73 sq M.predicted among non-blacks MDRD (S/P/Bld) [Vol rate/Area] 49 mL/min/{1.73_m2} Low >60 [facility] Comment on above: Order Comment: 157 Result Comment: mL/m in/1.73m2 CKD-EPI Creatinine Equation (2020) Performed By: #### M 100.2200, L400.0001 #### [facility] [address] [place], [address] Glucose [Mass/Vol] 165 mg/dL High 70-99 [facility] Comment on above: Order Comment: 157 Performed By: #### M 100.2200, L400.0001 #### [facility] [address] [place], [address] Potassium [Moles/Vol] 4.0 mmol/L Normal 3.3-5.1 [facility] Comment on above: Order Comment: 157 Performed By: #### M 100.2200, L400.0001 #### [facility] [address] [place], [address] Sodium [Moles/Vol] 140 mmol/L Normal 133-145 [facility] Comment on above: Order Comment: 157 Performed By: #### M 100.2200, L400.0001 #### [facility] [address] [place], [address] Urea nitrogen [Mass/Vol] 34 mg/dL High 4-19 [facility] Comment on above: Order Comment: 157 Performed By: #### M 100.2200, L400.0001 #### [facility] [address] [place], [address] Carbon dioxide, total [Moles /volume] in Central venous bloodOrdered By: Melissa Reed on 09-19-2024 CO2 [Moles/Vol] 27.2 mmol/L 21.0-32.0 [facility] Chloride assayOrdered By: Sd Reed on 09-19-2024 Chloride [Moles/Vol] 103 mmol/L 98-[address] [facility] GFR/1.73 sq M.predicted denise g non-blacks MDRD (S/P/Bld) [Vol rate/Area]Ordered By: Melissa Reed on 09-19-2024 Estimated GFR (MDRD) Non-Af Amer 49 Low >60 [facility] Comment on above: mL/min/1.73m2 CKD-EP I Creatinine Equation (2020) Glomerular filtration rate ( GFR) estimation/1.73 sq m using serum, plasma, or whole bOrdered By: Melissa Reed on 09-19-2024 GFR/1.73 sq M.predicted among non-blacks MDRD (S/P/Bld) [Vol rate/Area] 49 mL/min/{1.73_m2} Low >60 [facility] Comment on above: mL/min/1.73m2 CKD-EP I Creatinine Equation (2020) Magnesiumon 09-19-2024 Magnesium [Mass/Vol] 2.2 mg/dL Normal 1.5-2.2 [facility] Comment on above: Order Comment: 157 Performed By: #### M 100.2200, L400.0001 #### [facility] [address] [place] [address]. [place], [place], [id number] Magnesium (Unsp spec) [Mass/ Vol]Ordered By: Melissa Reed on 09-19-2024 Magnesium [Mass/Vol] 2.2 mg/dL 1.5-2.2 [facility] Magnesium measurement (mass/ volume)Ordered By: Melissa Reed on 09-19-2024 Magnesium (Unsp spec) [Mass/Vol] 2.2 mg/dL 1.5-2.2 [facility] Potassium (Unsp spec) [Mass/ Vol]Ordered By: Melissa Reed on 09-19-2024 Potassium [Moles/Vol] 4.0 mmol/L 3.3-5.1 [facility] Potassium measurement (mass/ volume)Ordered By: Melissa Reed on 09-19-2024 Potassium (Unsp spec) [Mass/Vol] 4.0 mmol/L 3.3-5.1 [facility] Serum creatinine measurement (mass/volume)Ordered By: Melissa Reed on 09-19-2024 Creatinine [Mass/Vol] 1.13 mg/dL 0.70-1.20 [facility] Serum glucose measurement (m ass/volume)Ordered By: Melissa Genenaz on 09-19-2024 Glucose [Mass/Vol] 165 mg/dL High 70-99 [facility] Serum or plasma calcium danae urement (mass/volume)Ordered By: Melissabridgette Reed on 09-19-2024 Calcium [Mass/Vol] 8.6 mg/dL 7.6-11.0 [facility] Serum or plasma urea nitroge n measurement (mass/volume)Ordered By: Melissa Reed on 09-19-2024 Urea nitrogen [Mass/Vol] 34 mg/dL High 4-19 [facility] Sodium levelOrdered By: Rubin Reed on 09-19-2024 Sodium [Moles/Vol] 140 mmol/L 133-145 [facility] Urine [facility]on [facility]-19-20[facility] ESCHERICHIA COLI mCIM [...] sent to Infection Control Printer [id number] 09/08/24 2063 MARYLOU. ESBL Escherichia coli [place] Count >100,000 MARKER Possible Carbapenemase producing EnterobacteriaceaeA [...] S Tobramycin Islt LAVINIA <=1 S Normal [facility] Comment on above: Performed By: #### M 100.2200, L400.0001 #### [facility] [address] [place], [address] Urinalysis, Completeon 09-06 EPI,TRANSITION 0-5 SEEN Normal 0-5 [facility] Comment on above: Order Comment: CLEAN CATCH Performed By: #### M 100.2200, L400.0001 #### [facility] [address] [place], [address] BACTERIA 3+ /hpf Normal None Seen [facility] Comment on above: Order Comment: CLEAN CATCH Performed By: #### M 100.2200, L400.0001 #### [facility] [address] [place], [address] EPI,SQUAMOUS 5-10 SEEN Normal 5-10 [facility] Comment on above: Order Comment: CLEAN CATCH Performed By: #### M 100.2200, L400.0001 #### [facility] [address] [place], [address] RBC 0-5 SEEN Normal 0-5 [facility] Comment on above: Order Comment: CLEAN CATCH Performed By: #### M 100.2200, L400.0001 #### [facility] [address] [place], [address] WBC 25-50 SEEN Normal 0-5 [facility] Comment on above: Order Comment: CLEAN CATCH Performed By: #### M 100.2200, L400.0001 #### [facility] [address] [place], [address] Mucus Ql (Urine sed) 0 SEEN Normal [facility] Comment on above: Order Comment: CLEAN CATCH Performed By: #### M 100.2200, L400.0001 #### [facility] [place], [address] Bilirubin Test strip Ql (U)O rdered By: Melissa Reed on 09-05-2024 Bilirubin Ql (U) Negative Negative [facility] Epithelial cells.squamous LM Ql (Urine sed)Ordered By: Melissa Reed on 09-05-2024 Epithelial cells.squamous LM.HPF (Urine sed) [#/Area] 5 /[HPF] 5-10 [facility] Glucose Ql (U)Ordered By: Sd Reed on 09-05-2024 Urine Glucose (UA) Normal mg/dl Normal [facility] Ketones Test strip Ql (U)Ord ered By: Melissa Reed on 09-05-2024 Ketones Ql (U) Negative Negative [facility] Microscopic analysis of urin e for red blood cells (RBC)Ordered By: Melissa Reed on 09-05-2024 Microscopic analysis of urine for red blood cells (RBC) 0-5 SEEN /hpf 0-5 [facility] Urine RBC 0-5 SEEN /hpf 0-5 [facility] Mucus LM Ql (Urine sed)Order ed By: Melissa Reed on 09-05-2024 Mucus Ql (Urine sed) 0 SEEN /hpf [facility] Nitrite Test strip Ql (U)Ord ered By: eMlissa Reed on 09-05-2024 Nitrite Ql (U) Positive High Negative [facility] Protein Test strip Ql (U)Ord ered By: Melissa Reed on 09-05-2024 Protein Ql (U) 30 mg/dl High Negative [facility] Squamous epithelial cells de tection in urine sediment by light microscopyOrdered By: Melissa Reed on 09-05-2024 Epithelial cells.squamous LM Ql (Urine sed) 5-10 SEEN /hpf 5-10 [facility] Transitional cells LM Ql (Ur ine sed)Ordered By: Melissa Reed on 09-05-2024 Urine Transitional Epithelial Cells 0-5 SEEN /hpf 0-5 [facility] Transitional cells detection in urine sediment by light microscopyOrdered By: Melsisa Reed on 09-05-2024 Transitional cells LM Ql (Urine sed) 0-5 SEEN /hpf 0-5 [facility] Urine blood detectionOrdered By: Melissa Reed on 09-05-2024 Urine Occult Blood 10 /ul High Negative [facility] Urine clarityOrdered By: Lillian Reed on 09-05-2024 Clarity (U) Sl. Cloudy Clear [facility] Urine color determinationOrd ered By: Melissa Reed on 09-05-2024 Color (U) Yellow Yellow [facility] Urine cultureOrdered By: Lillian Reed on 09-05-2024 Bacteria identified Cx Nom (U) ESBL Escherichia coli Abnormal [facility] Urine glucose detectionOrder ed By: Melissa Reed on 09-05-2024 Glucose Ql (U) Normal mg/dl Normal [facility] Urine leukocyte esterase det ection by dipstickOrdered By: Melissa Reed on 09-05-2024 Leukocyte esterase Test strip Ql (U) 500 /ul High Negative [facility] Urine pHOrdered By: Melissa kerr on 09-05-2024 pH (U) 6.5 [pH] 5.0 - 8.0 [facility] Urine sediment bacteria coun t by microscopy (number/high power field)Ordered By: Melissa Reed on 09-05-2024 Bacteria LM.HPF (Urine sed) [#/Area] 3 /[HPF] None Seen [facility] Urine specific gravity measu rementOrdered By: Melissa Reed on 09-05-2024 Specific gravity (U) [Rel density] 1.015 1.002-1.030 [facility] Urine urobilinogen measureme ntOrdered By: Melissa Reed on 09-05-2024 Urobilinogen Ql (U) Normal mg/dl Normal [facility] Urobilinogen Ql (U)Ordered B y: Melissa Reed on 09-05-2024 Urine Urobilinogen Normal mg/dl Normal [facility] White blood cell countOrdere d By: Melissa Reed on 09-05-2024 Urine WBC 25-50 SEEN /hpf 0-5 [facility] White blood cell count 25-50 SEEN /hpf 0-5 [facility] Anion gap in Serum or Plasma Ordered By: Melissa Reed on 08-22-2024 Anion gap [Moles/Vol] 11 mmol/L - [facility] BUN/creatinine ratioOrdered By: Melissa Reed on 08-22-2024 Urea nitrogen/Creatinine [Mass ratio] 21.6 mg/mg High - [facility] Basic Metabolic Profile (BMP )on 08-22-2024 BUN/CRE 21.6 RATIO High - [facility] Comment on above: Performed By: #### L 501.5200, L500.2500 #### [facility] [address] [place], [address] Calcium [Mass/Vol] 8.8 mg/dL Normal 7.6-11.0 [facility] Comment on above: Performed By: #### L 501.5200, L500.2500 #### [facility] [address] [place], [address] Chloride [Moles/Vol] 103 mmol/L Normal 98-108 [facility] Comment on above: Performed By: #### L 501.5200, L500.2500 #### [facility] [address] [place], [address] CO2 [Moles/Vol] 24.4 mmol/L Normal 21.0-32.0 [facility] Comment on above: Performed By: #### L 501.5200, L500.2500 #### [facility] [address] [place], [address] Creatinine [Mass/Vol] 1.14 mg/dL Normal 0.70-1.20 [facility] Comment on above: Performed By: #### L 501.5200, L500.2500 #### [facility] [address] [place], [address] GAP 11 Normal -15 [facility] Comment on above: Performed By: #### L 501.5200, L500.2500 #### [facility] [address] [place], [address] GFR/1.73 sq M.predicted among non-blacks MDRD (S/P/Bld) [Vol rate/Area] 49 mL/min/{1.73_m2} Low >60 [facility] Comment on above: Result Comment: mL/m in/1.73m2 CKD-EPI Creatinine Equation (2020) Performed By: #### L 501.5200, L500.2500 #### [facility] [address] [place], [address] Glucose [Mass/Vol] 104 mg/dL High 70-99 [facility] Comment on above: Performed By: #### L 501.5200, L500.2500 #### [facility] [address] [place], [address] Potassium [Moles/Vol] 4.1 mmol/L Normal 3.3-5.1 [facility] Comment on above: Result Comment: Hemo lysis present, Results??could be affected. ?? Performed By: #### L 501.5200, L500.2500 #### [facility] [address] [place], [address] Sodium [Moles/Vol] 138 mmol/L Normal 133-145 [facility] Comment on above: Performed By: #### L 501.5200, L500.2500 #### [facility] [address] [place], [address] Urea nitrogen [Mass/Vol] 25 mg/dL High 4-19 [facility] Comment on above: Performed By: #### L 501.5200, L500.2500 #### [facility] [address] [place], [address] Carbon dioxide, total [Moles /volume] in Central venous bloodOrdered By: Melissa Reed on 08-22-2024 CO2 [Moles/Vol] 24.4 mmol/L 21.0-32.0 [facility] Chloride assayOrdered By: Sd Reed on 08-22-2024 Chloride [Moles/Vol] 103 mmol/L 98-108 [facility] GFR/1.73 sq M.predicted denise g non-blacks MDRD (S/P/Bld) [Vol rate/Area]Ordered By: Melissa Reed on 08-22-2024 Estimated GFR (MDRD) Non-Af Amer 49 Low >60 [facility] Comment on above: mL/min/1.73m2 CKD-EP I Creatinine Equation (2020) Glomerular filtration rate ( GFR) estimation/1.73 sq m using serum, plasma, or whole bOrdered By: Melissa Reed on 08-22-2024 GFR/1.73 sq M.predicted among non-blacks MDRD (S/P/Bld) [Vol rate/Area] 49 mL/min/{1.73_m2} Low >60 [facility] Comment on above: mL/min/1.73m2 CKD-EP I Creatinine Equation (2020) Magnesiumon 08-22-2024 Magnesium [Mass/Vol] 2.3 mg/dL High 1.5-2.2 [facility] Comment on above: Performed By: #### L 501.5200, L500.2500 #### [facility] [address] [place] [address], [address] Magnesium (Unsp spec) [Mass/ Vol]Ordered By: Melissa Reed on 08-22-2024 Magnesium [Mass/Vol] 2.3 mg/dL High 1.5-2.2 [facility] Magnesium measurement (mass/ volume)Ordered By: Melissa Reed on 08-22-2024 Magnesium (Unsp spec) [Mass/Vol] 2.3 mg/dL High 1.5-2.2 [facility] Potassium (Unsp spec) [Mass/ Vol]Ordered By: Melissa Reed on 08-22-2024 Potassium [Moles/Vol] 4.1 mmol/L 3.3-5.1 [facility] Comment on above: Hemolysis present, R esults could be affected. Potassium measurement (mass/ volume)Ordered By: Melissa Reed on 08-22-2024 Potassium (Unsp spec) [Mass/Vol] 4.1 mmol/L 3.3-5.1 [facility] Comment on above: Hemolysis present, R esults could be affected. Serum creatinine measurement (mass/volume)Ordered By: Melissa Reed on 08-22-2024 Creatinine [Mass/Vol] 1.14 mg/dL 0.70-1.20 [facility] Serum glucose measurement (m ass/volume)Ordered By: Melissa Reed on 08-22-2024 Glucose [Mass/Vol] 104 mg/dL High 70-99 [facility] Serum or plasma calcium danae urement (mass/volume)Ordered By: Melissa Reed on 08-22-2024 Calcium [Mass/Vol] 8.8 mg/dL 7.6-11.0 [facility] Serum or plasma urea nitroge n measurement (mass/volume)Ordered By: Melissa Reed on 08-22-2024 Urea nitrogen [Mass/Vol] 25 mg/dL High 4-19 [facility] Sodium levelOrdered By: Rubin Reed on 08-22-2024 Sodium [Moles/Vol] 138 mmol/L 133-145 [facility] Urine Cultureon 08-10-2024 [facility] Copy of report sent to Infection Control Printer [id number] 08/10/24 0702 MARYLOU. ESBL Escherichia coli [place] Count 80,000-100,000 ESBL Escherichia coli: REACTION Ampicillin [...] S Tobramycin Islt LAVINIA <=1 S Normal [facility] Comment on above: Performed By: #### M 100.2200, L400.0001 #### [facility] [address] [place], [address] Basic Metabolic Profile (BMP )on 08-08-2024 BUN/CRE 27.6 RATIO High 04-07 [facility] Comment on above: Performed By: #### M 100.2200, L400.0001 #### [facility] [address] [place], [address] CA,Total 8.6 mg/dL Normal 8.5-10.1 [facility] Comment on above: Performed By: #### M 100.2200, L400.0001 #### [facility] [address] [place], [address] Chloride [Moles/Vol] 103 mmol/L Normal 98-107 [facility] Comment on above: Performed By: #### M 100.2200, L400.0001 #### [facility] [address] [place], [address] CO2 [Moles/Vol] 31.0 mmol/L Normal 21.0-32.0 [facility] Comment on above: Performed By: #### M 100.2200, L400.0001 #### [facility] [address] [place], [address] Creatinine [Mass/Vol] 1.23 mg/dL High 0.55-1.02 [facility] Comment on above: Result Comment: The validity of the calculated GFR GFRAA in patients over 70 years has not been determined. Clinical correlation is essential. Performed By: #### M 100.2200, L400.0001 #### [facility] [address] [place], [address] EST GFR - AA 54 mL/min Low >60 [facility] Comment on above: Result Comment: Afri can Guatemalan GFR Calc Performed By: #### M 100.2200, L400.0001 #### [facility] [address] [place], [address] GAP 4 Low 5-15 [facility] Comment on above: Performed By: #### M 100.2200, L400.0001 #### [facility] [address] [place], [address] GFR/1.73 sq M.predicted among non-blacks MDRD (S/P/Bld) [Vol rate/Area] 45 mL/min/{1.73_m2} Low >60 [facility] Comment on above: Result Comment: Non- GFR Calc Performed By: #### M 100.2200, L400.0001 #### [facility] [address] [place], [address] Glucose [Mass/Vol] 192 mg/dL High 74-106 [facility] Comment on above: Result Comment: Fast ing Glucose result greater than or equal to 126 mg/dL suggests DIABETES MELLITUS per A.D.A. criteria. Performed By: #### M 100.2200, L400.0001 #### [facility] [address] [place], [address] Potassium [Moles/Vol] 4.1 mmol/L Normal 3.5-5.1 [facility] Comment on above: Performed By: #### M 100.2200, L400.0001 #### [facility] [address] [place], [address] Sodium [Moles/Vol] 138 mmol/L Normal 136-145 [facility] Comment on above: Performed By: #### M 100.2200, L400.0001 #### [facility] [address] [place], [address] Urea nitrogen [Mass/Vol] 34 mg/dL High 7-18 [facility] Comment on above: Performed By: #### M 100.2200, L400.0001 #### [facility] [address] [place], [address] Blood urea nitrogen (BUN)/cr eatinine ratioOrdered By: Melissa Reed on 08-08-2024 Urea nitrogen/Creatinine [Mass ratio] 27.6 mg/mg High 10-20 [facility] Carbon dioxide measurementOr dered By: Melissa Reed on 08-08-2024 CO2 [Moles/Vol] 31.0 mmol/L 21.0-32.0 [facility] Chloride measurementOrdered By: Melissa Reed on 08-08-2024 Chloride [Moles/Vol] 103 mmol/L 98-107 [facility] Estimated glomerular filtrat ion rate (GFR) AmericanOrdered By: Melissa Reed on 08-08-2024 Estimated GFR (MDRD) Amer 54 mL/min Low >60 [facility] Comment on above: GFR Calc Glomerular filtration rate ( GFR) estimationOrdered By: Melissa Reed on 08-08-2024 Estimated GFR (MDRD) Non-Af Amer 45 mL/min Low >60 [facility] Comment on above: Non- GFR Calc GFR/1.73 sq M.predicted among non-blacks MDRD (S/P/Bld) [Vol rate/Area] 45 mL/min/{1.73_m2} Low >60 [facility] Comment on above: Non- GFR Calc Glucose measurementOrdered B y: Melissa Reed on 08-08-2024 Glucose [Mass/Vol] 192 mg/dL High 74-106 [facility] Comment on above: Fasting Glucose resu lt greater than or equal to 126 mg/dL suggests DIABETES MELLITUS per A.D.A. criteria. Magnesiumon 08-08-2024 Magnesium [Mass/Vol] 2.2 mg/dL Normal 1.6-2.6 [facility] Comment on above: Performed By: #### M 100.2200, L400.0001 #### [facility] [address] [place], [address] Magnesium measurementOrdered By: Melissa Reed on 08-08-2024 Magnesium [Mass/Vol] 2.2 mg/dL 1.6-2.6 [facility] Potassium measurementOrdered By: Melissa Reed on 08-08-2024 Potassium [Moles/Vol] 4.1 mmol/L 3.5-5.1 [facility] Serum anion gap measurementO rdered By: Melissa Reed on 08-08-2024 Anion gap [Moles/Vol] 4 mmol/L Low 5-15 [facility] Serum or plasma calcium danae urement (mass/volume)Ordered By: Melissa Reed on 08-08-2024 Calcium [Mass/Vol] 8.6 mg/dL 8.5-10.1 [facility] Serum or plasma creatinine m easurement (mass/volume)Ordered By: Melissa Reed on 08-08-2024 Creatinine [Mass/Vol] 1.23 mg/dL High 0.55-1.02 [facility] Comment on above: The validity of the calculated GFR & GFRAA in patients over 70 years has not been determined. Clinical correlation is essential. Serum or plasma urea nitroge n measurement (mass/volume)Ordered By: Melissa Reed on 08-08-2024 Urea nitrogen [Mass/Vol] 34 mg/dL High 7-18 [facility] Sodium levelOrdered By: Rubin Reed on 08-08-2024 Sodium [Moles/Vol] 138 mmol/L 136-145 [facility] Urinalysis, Completeon 08-07 BACTERIA 4+ /hpf Normal None Seen [facility] Comment on above: Order Comment: CLEAN CATCH Performed By: #### M 100.2200, L400.0001 #### [facility] [address] [place], [address] EPI,SQUAMOUS 0-5 SEEN Normal 5-10 [facility] Comment on above: Order Comment: CLEAN CATCH Performed By: #### M 100.2200, L400.0001 #### [facility] [address] [place], [address] RBC 0-5 SEEN Normal 0-5 [facility] Comment on above: Order Comment: CLEAN CATCH Performed By: #### M 100.2200, L400.0001 #### [facility] [address] [place], [address] WBC 10-25 SEEN Normal 0-5 [facility] Comment on above: Order Comment: CLEAN CATCH Performed By: #### M 100.2200, L400.0001 #### [facility] [address] [place], [address] Mucus Ql (Urine sed) 0 SEEN Normal [facility] Comment on above: Order Comment: CLEAN CATCH Performed By: #### M 100.2200, L400.0001 #### [facility] [address] [place], [address] Bilirubin Test strip Ql (U)O rdered By: Melissa Reed on 08-06-2024 Bilirubin Ql (U) Negative Negative [facility] Epithelial cells.squamous LM Ql (Urine sed)Ordered By: Melissa Reed on 08-06-2024 Epithelial cells.squamous LM.HPF (Urine sed) [#/Area] 0 /[HPF] 5-10 [facility] Glucose Ql (U)Ordered By: Sd Reed on 08-06-2024 Urine Glucose (UA) Normal mg/dl Normal [facility] Ketones Test strip Ql (U)Ord ered By: Melissa Reed on 08-06-2024 Ketones Ql (U) Negative Negative [facility] Microscopic analysis of urin e for red blood cells (RBC)Ordered By: Melissa Reed on 08-06-2024 Microscopic analysis of urine for red blood cells (RBC) 0-5 SEEN /hpf 0-5 [facility] Urine RBC 0-5 SEEN /hpf 0-5 [facility] Mucus LM Ql (Urine sed)Order ed By: Melissa Reed on 02-18-2025 Mucus Ql (Urine sed) 0 SEEN /hpf [facility] Nitrite Test strip Ql (U)Ord ered By: Melissa Reed on 08-06-2024 Nitrite Ql (U) Positive High Negative [facility] Protein Test strip Ql (U)Ord ered By: Melissa Reed on 08-06-2024 Protein Ql (U) Negative Negative [facility] Squamous epithelial cells de tection in urine sediment by light microscopyOrdered By: Melissa Reed on 08-06-2024 Epithelial cells.squamous LM Ql (Urine sed) 0-5 SEEN /hpf 5-10 [facility] Urine blood detectionOrdered By: Melissa Reed on 08-06-2024 Urine Occult Blood Negative Negative [facility] Urine clarityOrdered By: Lillian Reed on 08-06-2024 Clarity (U) Cloudy Clear [facility] Urine color determinationOrd ered By: Melissa Reed on 08-06-2024 Color (U) Yellow Yellow [facility] Urine cultureOrdered By: Lillian Reed on 08-06-2024 Bacteria identified Cx Nom (U) ESBL Escherichia coli Abnormal [facility] Urine glucose detectionOrder ed By: Melissa Reed on 08-06-2024 Glucose Ql (U) Normal mg/dl Normal [facility] Urine leukocyte esterase det ection by dipstickOrdered By: Melissa Reed on 08-06-2024 Leukocyte esterase Test strip Ql (U) 500 /ul High Negative [facility] Urine pHOrdered By: Melissa kerr on 08-06-2024 pH (U) 7.0 [pH] 5.0 - 8.0 [facility] Urine sediment bacteria coun t by microscopy (number/high power field)Ordered By: Melissa Reed on 08-06-2024 Bacteria LM.HPF (Urine sed) [#/Area] 4 /[HPF] None Seen [facility] Urine specific gravity measu rementOrdered By: Melissa Reed on 08-06-2024 Specific gravity (U) [Rel density] 1.010 1.002-1.030 [facility] Urine urobilinogen measureme ntOrdered By: Melissa Reed on 08-06-2024 Urobilinogen Ql (U) Normal mg/dl Normal [facility] Urobilinogen Ql (U)Ordered B y: Melissa Reed on 08-06-2024 Urine Urobilinogen Normal mg/dl Normal [facility] White blood cell countOrdere d By: Melissa Reed on 08-06-2024 Urine WBC 10-25 SEEN /hpf 0-5 [facility] White blood cell count 10-25 SEEN /hpf 0-5 [facility] Cerv Spine 2 or 3 Viewson Cerv Spine 2 or 3 Views [facility] [address], [place] [address] Cerv Spine 2 or 3 Views MR#: [id number] Acct: [id number] Name: RADHA SANDOVAL Rep #: [id number] : 1945 F 78 From: Abner Castro DO PCP: Melissa Reed MD Status: REG CLI Study: Cerv Spine 2 or 3 Views Date of Exam: 07/31/24 Exam# [id number] Ordering Dr: Gypsy Argueta MD PROCEDURE: CERVICAL [...] the cervical lordosis. Reading Location: [facility] CC: Dr. Gypsy Argueta MD; Melissa Reed MD Valance Cutter: Signed Normal [facility] Shoulder min 2 Viewson 07-31 Shoulder min 2 Views [facility] [address] [place] [address] Shoulder min 2 Views MR#: [id number] Acct: [id number] Name: RADHA SANDOVAL Rep #: [id number] : 1945 F 78 From: Devendra Magallon PCP: Melissa Reed MD Status: REG CLI Study: Shoulder min 2 Views Date of Exam: 07/31/24 Exam# [id number] Ordering Dr: Gypsy Argueta MD PROCEDURE: Left shoulder radiographs REASON FOR EXAM: Pain TECHNIQUE: Four views of the left shoulder COMPARISON: None FINDINGS: See impression RAD/Shoulder min 2 Views IMPRESSION: Chronic fracture of the humeral neck with lateral plate/screw fixation hardware in place. Severe glenohumeral joint osteoarthritis. Negative for acute displaced fracture or dislocation. Acromioclavicular joint is intact. Reading Location: [facility] CC: Dr. Gypsy Argueta MD; Melissa Reed MD Valance Cutter: Signed Normal [facility] Shoulder min 2 Views [facility] [address] [place] [address] Shoulder min 2 Views MR#: [id number] Acct: [id number] Name: RADHA SANDOVAL Rep #: [id number] : 1945 F 78 From: Devendra Magallon PCP: Melissa Reed MD Status: REG CLI Study: Shoulder min 2 Views Date of Exam: 07/31/24 Exam# [id number] Ordering Dr: Gypsy Argueta MD PROCEDURE: Right shoulder radiographs REASON FOR EXAM: Pain TECHNIQUE: Five views of the right shoulder COMPARISON: None. FINDINGS: See impression RAD/Shoulder min 2 Views IMPRESSION: Limited exam due to patient immobility. Negative for acute displaced fracture or dislocation. Probable severe glenohumeral joint osteoarthritis. Acromioclavicular joint is intact. Reading Location: [facility] CC: Dr. Gypsy Argueta MD; Melissa Reed MD Valance Cutter: Signed Normal [facility] Basic Metabolic Profile (BMP )on 07-25-2024 BUN/CRE 26.7 RATIO High 10-20 [facility] Comment on above: Order Comment: 157 Performed By: #### M 100.2200, L400.0001 #### [facility] [address] [place], [address] CA,Total 9.1 mg/dL Normal 8.5-10.1 [facility] Comment on above: Order Comment: 157 Performed By: #### M 100.2200, L400.0001 #### [facility] [address] [place], [address] Chloride [Moles/Vol] 103 mmol/L Normal 98-107 [facility] Comment on above: Order Comment: 157 Performed By: #### M 100.2200, L400.0001 #### [facility] [address] [place], [address] CO2 [Moles/Vol] 31.0 mmol/L Normal 21.0-32.0 [facility] Comment on above: Order Comment: 157 Performed By: #### M 100.2200, L400.0001 #### [facility] [address] [place], [address] Creatinine [Mass/Vol] 0.97 mg/dL Normal 0.55-1.02 [facility] Comment on above: Order Comment: 157 Result Comment: The validity of the calculated GFR GFRAA in patients over 70 years has not been determined. Clinical correlation is essential. Performed By: #### M 100.2200, L400.0001 #### [facility] [address] [place], [address] EST GFR - AA 71 mL/min Normal >60 [facility] Comment on above: Order Comment: 157 Result Comment: Afri can Guatemalan GFR Calc Performed By: #### M 100.2200, L400.0001 #### [facility] [address] [place], [address] GAP 4 Low 5-15 [facility] Comment on above: Order Comment: 157 Performed By: #### M 100.2200, L400.0001 #### [facility] [address] [place], [address] GFR/1.73 sq M.predicted among non-blacks MDRD (S/P/Bld) [Vol rate/Area] 58 mL/min/{1.73_m2} Low >60 [facility] Comment on above: Order Comment: 157 Result Comment: Non- GFR Calc Performed By: #### M 100.0, L400.0001 #### [facility] [address] [place], [address] Glucose [Mass/Vol] 120 mg/dL High 74-106 [facility] Comment on above: Order Comment: 157 Result Comment: Fast ing Glucose result from 100 to 125 mg/dL suggests IMPAIRED HOMEOSTASIS per A.D.A. criteria. Performed By: #### M 100.0, L400.0001 #### [facility] [address] [place], [address] Potassium [Moles/Vol] 3.9 mmol/L Normal 3.5-5.1 [facility] Comment on above: Order Comment: 157 Performed By: #### M 100.2200, L400.0001 #### [facility] [address] [place], [address] Sodium [Moles/Vol] 138 mmol/L Normal 136-145 [facility] Comment on above: Order Comment: 157 Performed By: #### M 100.2200, L400.0001 #### [facility] [address] [place], [address] Urea nitrogen [Mass/Vol] 26 mg/dL High 7-18 [facility] Comment on above: Order Comment: 157 Performed By: #### M 100.2200, L400.0001 #### [facility] [address] [place], [place], [address] Blood urea nitrogen (BUN)/cr eatinine ratioOrdered By: Melissa Reed on 07-25-2024 Urea nitrogen/Creatinine [Mass ratio] 26.7 mg/mg High 10-20 [facility] Carbon dioxide measurementOr dered By: Melissa Reed on 07-25-2024 CO2 [Moles/Vol] 31.0 mmol/L 21.0-32.0 [facility] Chloride measurementOrdered By: Melissa Reed on 07-25-2024 Chloride [Moles/Vol] 103 mmol/L 98-107 [facility] Estimated glomerular filtrat ion rate (GFR) AmericanOrdered By: Melissa Reed on 07-25-2024 Estimated GFR (MDRD) Amer 71 mL/min >60 [facility] Comment on above: GFR Calc Glomerular filtration rate ( GFR) estimationOrdered By: Melissa Reed on 07-25-2024 Estimated GFR (MDRD) Non-Af Amer 58 mL/min Low >60 [facility] Comment on above: Non- GFR Calc Glucose measurementOrdered B y: Melissa Reed on 07-25-2024 Glucose [Mass/Vol] 120 mg/dL High 74-106 [facility] Comment on above: Fasting Glucose resu lt from 100 to 125 mg/dL suggests IMPAIRED HOMEOSTASIS per A.D.A. criteria. Magnesiumon 07-25-2024 Magnesium [Mass/Vol] 2.2 mg/dL Normal 1.6-2.6 [facility] Comment on above: Order Comment: 157 Performed By: #### M 100.2200, L400.0001 #### [facility] [address] [place], [place], [id number] Magnesium measurementOrdered By: Melissa Reed on 07-25-2024 Magnesium [Mass/Vol] 2.2 mg/dL 1.6-2.6 [facility] Potassium measurementOrdered By: Melissa Reed on 07-25-2024 Potassium [Moles/Vol] 3.9 mmol/L 3.5-5.1 [facility] Serum anion gap measurementO rdered By: Melissa Reed on 07-25-2024 Anion gap [Moles/Vol] 4 mmol/L Low 5-15 [facility] Serum or plasma calcium danae urement (mass/volume)Ordered By: Melissa Reed on 07-25-2024 Calcium [Mass/Vol] 9.1 mg/dL 8.5-10.1 [facility] Serum or plasma creatinine m easurement (mass/volume)Ordered By: Melissa Reed on 07-25-2024 Creatinine [Mass/Vol] 0.97 mg/dL 0.55-1.02 [facility] Comment on above: The validity of the calculated GFR & GFRAA in patients over 70 years has not been determined. Clinical correlation is essential. Serum or plasma urea nitroge n measurement (mass/volume)Ordered By: Melissa Reed on 07-25-2024 Urea nitrogen [Mass/Vol] 26 mg/dL High 7-18 [facility] Sodium levelOrdered By: Rubin Reed on 07-25-2024 Sodium [Moles/Vol] 138 mmol/L 136-145 [facility] Basic Metabolic Profile (BMP )on 07-11-2024 BUN/CRE 30.4 RATIO High 10-20 [facility] Comment on above: Order Comment: 157 Performed By: #### M 100.2200, L400.0001 #### [facility] [address] [place], [address] CA,Total 9.0 mg/dL Normal 8.5-10.1 [facility] Comment on above: Order Comment: 157 Performed By: #### M 100.2200, L400.0001 #### [facility] [address] [place], [address] Chloride [Moles/Vol] 103 mmol/L Normal 98-107 [facility] Comment on above: Order Comment: 157 Performed By: #### M 100.2200, L400.0001 #### [facility] [address] [place], [address] CO2 [Moles/Vol] 32.0 mmol/L Normal 21.0-32.0 [facility] Comment on above: Order Comment: 157 Performed By: #### M 100.2200, L400.0001 #### [facility] [address] [place], [address] Creatinine [Mass/Vol] 0.86 mg/dL Normal 0.55-1.02 [facility] Comment on above: Order Comment: 157 Result Comment: The validity of the calculated GFR GFRAA in patients over 70 years has not been determined. Clinical correlation is essential. Performed By: #### M 100.2200, L400.0001 #### [facility] [address] [place], [address] EST GFR - AA 82 mL/min Normal >60 [facility] Comment on above: Order Comment: 157 Result Comment: Afri can Guatemalan GFR Calc Performed By: #### M 100.2200, L400.0001 #### [facility] [address] [place], [address] GAP 5 Normal 5-15 [facility] Comment on above: Order Comment: 157 Performed By: #### M 100.2200, L400.0001 #### [facility] [address] [place], [address] GFR/1.73 sq M.predicted among non-blacks MDRD (S/P/Bld) [Vol rate/Area] 68 mL/min/{1.73_m2} Normal >60 [facility] Comment on above: Order Comment: 157 Result Comment: Non- GFR Calc Performed By: #### M 100.2200, L400.0001 #### [facility] [address] [place], [address] Glucose [Mass/Vol] 109 mg/dL High 74-106 [facility] Comment on above: Order Comment: 157 Result Comment: Fast ing Glucose result from 100 to 125 mg/dL suggests IMPAIRED HOMEOSTASIS per A.D.A. criteria. Performed By: #### M 100.2200, L400.0001 #### [facility] [address] [place], [address] Potassium [Moles/Vol] 4.1 mmol/L Normal 3.5-5.1 [facility] Comment on above: Order Comment: 157 Performed By: #### M 100.2200, L400.0001 #### [facility] [address] [place], [address] Sodium [Moles/Vol] 140 mmol/L Normal 136-145 [facility] Comment on above: Order Comment: 157 Performed By: #### M 100.2200, L400.0001 #### [facility] [address] [place], [address] Urea nitrogen [Mass/Vol] 26 mg/dL High 7-18 [facility] Comment on above: Order Comment: 157 Performed By: #### M 100.2200, L400.0001 #### [facility] [address] [place], [address] Blood urea nitrogen (BUN)/cr eatinine ratioOrdered By: Melissa Reed on 07-11-2024 Urea nitrogen/Creatinine [Mass ratio] 30.4 mg/mg High 10-20 [facility] Carbon dioxide measurementOr dered By: Melissa Reed on 07-11-2024 CO2 [Moles/Vol] 32.0 mmol/L 21.0-32.0 [facility] Chloride measurementOrdered By: Melissa Reed on 07-11-2024 Chloride [Moles/Vol] 103 mmol/L 98-107 [facility] Estimated glomerular filtrat ion rate (GFR) AmericanOrdered By: Melissa Reed on 07-11-2024 Estimated GFR (MDRD) Amer 82 mL/min >60 [facility] Comment on above: GFR Calc Glomerular filtration rate ( GFR) estimationOrdered By: Melissa Reed on 07-11-2024 Estimated GFR (MDRD) Non-Af Amer 68 mL/min >60 [facility] Comment on above: Non- GFR Calc Glucose measurementOrdered B y: Melissa Reed on 07-11-2024 Glucose [Mass/Vol] 109 mg/dL High 74-106 [facility] Comment on above: Fasting Glucose resu lt from 100 to 125 mg/dL suggests IMPAIRED HOMEOSTASIS per A.D.A. criteria. Magnesiumon 07-11-2024 Magnesium [Mass/Vol] 2.2 mg/dL Normal 1.6-2.6 [facility] Comment on above: Order Comment: 157 Performed By: #### M 100.2200, L400.0001 #### [facility] [address] [place] [address]. [place], [place], [address] Magnesium measurementOrdered By: Melissa Reed on 07-11-2024 Magnesium [Mass/Vol] 2.2 mg/dL 1.6-2.6 [facility] Potassium measurementOrdered By: Melissa Reed on 07-11-2024 Potassium [Moles/Vol] 4.1 mmol/L 3.5-5.1 [facility] Serum anion gap measurementO rdered By: Melissa Reed on 07-11-2024 Anion gap [Moles/Vol] 5 mmol/L 5-15 [facility] Serum or plasma calcium danae urement (mass/volume)Ordered By: Melissa Reed on 07-11-2024 Calcium [Mass/Vol] 9.0 mg/dL 8.5-10.1 [facility] Serum or plasma creatinine m easurement (mass/volume)Ordered By: Melissa Reed on 07-11-2024 Creatinine [Mass/Vol] 0.86 mg/dL 0.55-1.02 [facility] Comment on above: The validity of the calculated GFR & GFRAA in patients over 70 years has not been determined. Clinical correlation is essential. Serum or plasma urea nitroge n measurement (mass/volume)Ordered By: Melissa Reed on 07-11-2024 Urea nitrogen [Mass/Vol] 26 mg/dL High 7-18 [facility] Sodium levelOrdered By: Rubin Reed on 07-11-2024 Sodium [Moles/Vol] 140 mmol/L 136-145 [facility] Basic Metabolic Profile (BMP )on 06-27-2024 BUN/CRE 23.7 RATIO High 10-20 [facility] Comment on above: Order Comment: 157 Performed By: #### M 100.2200, L400.0001 #### [facility] [address] [place], [address] [place],Total 8.7 mg/dL Normal 8.5-10.1 [facility] Comment on above: Order Comment: 157 Performed By: #### M 100.2200, L400.0001 #### [facility] [address] [place], [address] Chloride [Moles/Vol] 105 mmol/L Normal 98-107 [facility] Comment on above: Order Comment: 157 Performed By: #### M 100.2200, L400.0001 #### [facility] [address] [place], [address] CO2 [Moles/Vol] 31.0 mmol/L Normal 21.0-32.0 [facility] Comment on above: Order Comment: 157 Performed By: #### M 100.2200, L400.0001 #### [facility] [address] [place], [address] Creatinine [Mass/Vol] 1.18 mg/dL High 0.55-1.02 [facility] Comment on above: Order Comment: 157 Result Comment: The validity of the calculated GFR GFRAA in patients over 70 years has not been determined. Clinical correlation is essential. Performed By: #### M 100.2200, L400.0001 #### [facility] [address] [place], [address] EST GFR - AA 57 mL/min Low >60 [facility] Comment on above: Order Comment: 157 Result Comment: Afri can [place] GFR Calc Performed By: #### M 100.2200, L400.0001 #### [facility] [address] [place], [address] GAP 4 Low 5-15 [facility] Comment on above: Order Comment: 157 Performed By: #### M 100.2200, L400.0001 #### [facility] [address] [place], [address] GFR/1.73 sq M.predicted among non-blacks MDRD (S/P/Bld) [Vol rate/Area] 47 mL/min/{1.73_m2} Low >60 [facility] Comment on above: Order Comment: 157 Result Comment: Non- GFR Calc Performed By: #### M 100.2199, L400.0001 #### [facility] [address] [place], [address] Glucose [Mass/Vol] 85 mg/dL Normal 74-106 [facility] Comment on above: Order Comment: 157 Performed By: #### M 100.2199, L400.0001 #### [facility] [address] [place], [address] Potassium [Moles/Vol] 3.8 mmol/L Normal 3.5-5.1 [facility] Comment on above: Order Comment: 157 Performed By: #### M 100.2200, L400.0001 #### [facility] [address] [place], [address] Sodium [Moles/Vol] 140 mmol/L Normal 136-145 [facility] Comment on above: Order Comment: 157 Performed By: #### M 100.2200, L400.0001 #### [facility] [address] [place], [address] Urea nitrogen [Mass/Vol] 28 mg/dL High 7-18 [facility] Comment on above: Order Comment: 157 Performed By: #### M 100.2200, [id number] #### [facility] [address] [place], [place], [id number] Blood urea nitrogen (BUN)/cr eatinine ratioOrdered By: Melissa Reed on 06-27-2024 Urea nitrogen/Creatinine [Mass ratio] 23.7 mg/mg High 10-20 [facility] Carbon dioxide measurementOr dered By: Melissa Reed on 06-27-2024 CO2 [Moles/Vol] 31.0 mmol/L 21.0-32.0 [facility] Chloride measurementOrdered By: Melissa Reed on 06-27-2024 Chloride [Moles/Vol] 105 mmol/L 98-107 [facility] Estimated glomerular filtrat ion rate (GFR) AmericanOrdered By: Melissa Reed on 06-27-2024 Estimated GFR (MDRD) Amer 57 mL/min Low >60 [facility] Comment on above: GFR Calc Glomerular filtration rate ( GFR) estimationOrdered By: Melissa Reed on 06-27-2024 Estimated GFR (MDRD) Non-Af Amer 47 mL/min Low >60 [facility] Comment on above: Non- GFR Calc Glucose measurementOrdered B y: Melissa Reed on 06-27-2024 Glucose [Mass/Vol] 85 mg/dL 74-106 [facility] Magnesiumon 06-27-2024 Magnesium [Mass/Vol] 2.2 mg/dL Normal 1.6-2.6 [facility] Comment on above: Order Comment: 157 Performed By: #### M 100.2200, L400.0001 #### [facility] [address] [place], [address] Magnesium measurementOrdered By: Melissa Reed on 06-27-2024 Magnesium [Mass/Vol] 2.2 mg/dL 1.6-2.6 [facility] Potassium measurementOrdered By: Melissa Reed on 06-27-2024 Potassium [Moles/Vol] 3.8 mmol/L 3.5-5.1 [facility] Serum anion gap measurementO rdered By: Melissa Reed on 06-27-2024 Anion gap [Moles/Vol] 4 mmol/L Low 5-15 [facility] Serum or plasma calcium danae urement (mass/volume)Ordered By: Melissa Reed on 06-27-2024 Calcium [Mass/Vol] 8.7 mg/dL 8.5-10.1 [facility] Serum or plasma creatinine m easurement (mass/volume)Ordered By: Melissa Reed on 06-27-2024 Creatinine [Mass/Vol] 1.18 mg/dL High 0.55-1.02 [facility] Comment on above: The validity of the calculated GFR & GFRAA in patients over 70 years has not been determined. Clinical correlation is essential. Serum or plasma urea nitroge n measurement (mass/volume)Ordered By: Melissa Reed on 06-27-2024 Urea nitrogen [Mass/Vol] 28 mg/dL High 7-18 [facility] Sodium levelOrdered By: Rubin Reed on 06-27-2024 Sodium [Moles/Vol] 140 mmol/L 136-145 [facility] Basic Metabolic Profile (BMP )on 06-13-2024 BUN/CRE 32.6 RATIO High 10-20 [facility] Comment on above: Performed By: #### L 501.5200, L500.2500 ####[facility] [address] [place], [address] CA,Total 8.7 mg/dL Normal 8.5-10.1 [facility] Comment on above: Performed By: #### L 501.5200, L500.2500 ####[facility] [address] [place], [address] Chloride [Moles/Vol] 105 mmol/L Normal 98-107 [facility] Comment on above: Performed By: #### L 501.5200, L500.2500 ####[facility] [address] [place], [address] CO2 [Moles/Vol] 28.0 mmol/L Normal 21.0-32.0 [facility] Comment on above: Performed By: #### L 501.5200, L500.2500 ####[facility] [address] [place], [address] Creatinine [Mass/Vol] 0.98 mg/dL Normal 0.55-1.02 [facility] Comment on above: Result Comment: The validity of the calculated GFR GFRAA in patients over 70 years has not been determined. Clinical correlation is essential. Performed By: #### L 501.5200, L500.2500 ####[facility] [address] [place], [address] EST GFR - AA 70 mL/min Normal >60 [facility] Comment on above: Result Comment: Afri can [place] GFR Calc Performed By: #### L 501.5200, L500.2500 ####[facility] [address] [place], [address] GAP 5 Normal 5-15 [facility] Comment on above: Performed By: #### L 501.5200, L500.2500 ####[facility] [address] [place], [address] GFR/1.73 sq M.predicted among non-blacks MDRD (S/P/Bld) [Vol rate/Area] 58 mL/min/{1.73_m2} Low >60 [facility] Comment on above: Result Comment: Non- GFR Calc Performed By: #### L 501.5200, L500.2500 ####[facility] [address] [place], [address] Glucose [Mass/Vol] 161 mg/dL High 74-106 [facility] Comment on above: Result Comment: Fast ing Glucose result greater than or equal to 126 mg/dL suggests DIABETES MELLITUS per A.D.A. criteria. Performed By: #### L 501.5200, L500.2500 ####[facility] [address] [place], [address] Potassium [Moles/Vol] 3.8 mmol/L Normal 3.5-5.1 [facility] Comment on above: Result Comment: Slig ht Hemolysis, Result may be falsely increased. Performed By: #### L 501.5200, L500.2500 ####[facility] [address] [place], [address] Sodium [Moles/Vol] 138 mmol/L Normal 136-145 [facility] Comment on above: Performed By: #### L 501.5200, L500.2500 ####[facility] [address] [place], [address] Urea nitrogen [Mass/Vol] 32 mg/dL High 7-18 [facility] Comment on above: Performed By: #### L 501.5200, L500.2500 ####[facility] [address] [place], [address] Blood urea nitrogen (BUN)/cr eatinine ratioOrdered By: Melissa Reed on 06-13-2024 Urea nitrogen/Creatinine [Mass ratio] 32.6 mg/mg High 10-20 [facility] Carbon dioxide measurementOr dered By: Melissa Reed on 06-13-2024 CO2 [Moles/Vol] 28.0 mmol/L 21.0-32.0 [facility] Chloride measurementOrdered By: Melissa Reed on 06-13-2024 Chloride [Moles/Vol] 105 mmol/L 98-107 [facility] Estimated glomerular filtrat ion rate (GFR) AmericanOrdered By: Melissa Reed on 06-13-2024 Estimated GFR (MDRD) Amer 70 mL/min >60 [facility] Comment on above: GFR Calc Glomerular filtration rate ( GFR) estimationOrdered By: Melissa Reed on 06-13-2024 Estimated GFR (MDRD) Non-Af Amer 58 mL/min Low >60 [facility] Comment on above: Non- GFR Calc Glucose measurementOrdered B y: Melissa Reed on 06-13-2024 Glucose [Mass/Vol] 161 mg/dL High 74-106 [facility] Comment on above: Fasting Glucose resu lt greater than or equal to 126 mg/dL suggests DIABETES MELLITUS per A.D.A. criteria. Magnesiumon 06-13-2024 Magnesium [Mass/Vol] 2.2 mg/dL Normal 1.6-2.6 [facility] Comment on above: Result Comment: Slig ht Hemolysis, Result may be falsely increased. Performed By: #### L 501.5200, L500.2500 ####[facility] [address] [place], [address] Magnesium measurementOrdered By: Melissa Reed on 06-13-2024 Magnesium [Mass/Vol] 2.2 mg/dL 1.6-2.6 [facility] Comment on above: Slight Hemolysis, Re sult may be falsely increased. Potassium measurementOrdered By: Melissa Reed on 06-13-2024 Potassium [Moles/Vol] 3.8 mmol/L 3.5-5.1 [facility] Comment on above: Slight Hemolysis, Re sult may be falsely increased. Serum anion gap measurementO rdered By: Melissa Reed on 06-13-2024 Anion gap [Moles/Vol] 5 mmol/L 5-15 [facility] Serum or plasma calcium danae urement (mass/volume)Ordered By: Melissa Reed on 06-13-2024 Calcium [Mass/Vol] 8.7 mg/dL 8.5-10.1 [facility] Serum or plasma creatinine m easurement (mass/volume)Ordered By: Melissa Reed on 06-13-2024 Creatinine [Mass/Vol] 0.98 mg/dL 0.55-1.02 [facility] Comment on above: The validity of the calculated GFR & GFRAA in patients over 70 years has not been determined. Clinical correlation is essential. Serum or plasma urea nitroge n measurement (mass/volume)Ordered By: Melissa Reed on 06-13-2024 Urea nitrogen [Mass/Vol] 32 mg/dL High 7-18 [facility] Sodium levelOrdered By: Rubin Reed on 06-13-2024 Sodium [Moles/Vol] 138 mmol/L 136-145 [facility] Basic Metabolic Profile (BMP )on 05-29-2024 BUN/CRE 22.1 RATIO High 10-20 [facility] Comment on above: Order Comment: 157 Performed By: #### L 501.5200, L500.2500 #### [facility] [address] [place], [address] CA,Total 8.9 mg/dL Normal 8.5-10.1 [facility] Comment on above: Order Comment: 157 Performed By: #### L 501.5200, L500.2500 #### [facility] [address] [place], [address] Chloride [Moles/Vol] 106 mmol/L Normal 98-107 [facility] Comment on above: Order Comment: 157 Performed By: #### L 501.5200, L500.2500 #### [facility] [address] [place], [address] CO2 [Moles/Vol] 32.0 mmol/L Normal 21.0-32.0 [facility] Comment on above: Order Comment: 157 Performed By: #### L 501.5200, L500.2500 #### [facility] [address] [place], [address] Creatinine [Mass/Vol] 1.31 mg/dL High 0.55-1.02 [facility] Comment on above: Order Comment: 157 Result Comment: The validity of the calculated GFR GFRAA in patients over 70 years has not been determined. Clinical correlation is essential. Performed By: #### L 501.5200, L500.2500 #### [facility] [address] [place], [address] EST GFR - AA 50 mL/min Low >60 [facility] Comment on above: Order Comment: 157 Result Comment: Afri can [place] GFR Calc Performed By: #### L 501.5200, L500.2500 #### [facility] [address] [place], [address] GAP 5 Normal 5-15 [facility] Comment on above: Order Comment: 157 Performed By: #### L 501.5200, L500.2500 #### [facility] [address] [place], [address] GFR/1.73 sq M.predicted among non-blacks MDRD (S/P/Bld) [Vol rate/Area] 41 mL/min/{1.73_m2} Low >60 [facility] Comment on above: Order Comment: 157 Result Comment: Non- GFR Calc Performed By: #### L 501.5200, L500.2500 #### [facility] [address] [place], [address] Glucose [Mass/Vol] 116 mg/dL High 74-106 [facility] Comment on above: Order Comment: 157 Result Comment: Fast ing Glucose result from 100 to 125 mg/dL suggests IMPAIRED HOMEOSTASIS per A.D.A. criteria. Performed By: #### L 501.5200, L500.2500 #### [facility] [address] [place], [address] Potassium [Moles/Vol] 3.6 mmol/L Normal 3.5-5.1 [facility] Comment on above: Order Comment: 157 Performed By: #### L 501.5200, L500.2500 #### [facility] [address] [place], [address] Sodium [Moles/Vol] 142 mmol/L Normal 136-145 [facility] Comment on above: Order Comment: 157 Performed By: #### L 501.5200, L500.2500 #### [facility] [address] [place], [address] Urea nitrogen [Mass/Vol] 29 mg/dL High 7-18 [facility] Comment on above: Order Comment: 157 Performed By: #### L 501.5200, L500.2500 #### [facility] [address] [place], [address] Blood urea nitrogen (BUN)/cr eatinine ratioOrdered By: Melissa Reed on 05-29-2024 Urea nitrogen/Creatinine [Mass ratio] 22.1 mg/mg High 10-20 [facility] Carbon dioxide measurementOr dered By: Melissa Reed on 05-29-2024 CO2 [Moles/Vol] 32.0 mmol/L 21.0-32.0 [facility] Chloride measurementOrdered By: Melissa Reed on 05-29-2024 Chloride [Moles/Vol] 106 mmol/L 98-107 [facility] Estimated glomerular filtrat ion rate (GFR) AmericanOrdered By: Melissa Reed on 05-29-2024 Estimated GFR (MDRD) Amer 50 mL/min Low >60 [facility] Comment on above: GFR Calc Glomerular filtration rate ( GFR) estimationOrdered By: Melissa Reed on 05-29-2024 Estimated GFR (MDRD) Non-Af Amer 41 mL/min Low >60 [facility] Comment on above: Non- GFR Calc Glucose measurementOrdered B y: Melissa Reed on 05-29-2024 Glucose [Mass/Vol] 116 mg/dL High 74-106 [facility] Comment on above: Fasting Glucose resu lt from 100 to 125 mg/dL suggests IMPAIRED HOMEOSTASIS per A.D.A. criteria. Magnesiumon 05-29-2024 Magnesium [Mass/Vol] 2.0 mg/dL Normal 1.6-2.6 [facility] Comment on above: Order Comment: 157 Performed By: #### L 501.5200, L500.2500 #### [facility] [address] [place], [place], [id number] Magnesium measurementOrdered By: Melissa Reed on 05-29-2024 Magnesium [Mass/Vol] 2.0 mg/dL 1.6-2.6 [facility] Potassium measurementOrdered By: Melissa Reed on 05-29-2024 Potassium [Moles/Vol] 3.6 mmol/L 3.5-5.1 [facility] Serum anion gap measurementO rdered By: Melissa Reed on 05-29-2024 Anion gap [Moles/Vol] 5 mmol/L 5-15 [facility] Serum or plasma calcium danae urement (mass/volume)Ordered By: Melissa Reed on 05-29-2024 Calcium [Mass/Vol] 8.9 mg/dL 8.5-10.1 [facility] Serum or plasma creatinine m easurement (mass/volume)Ordered By: Melissa Reed on 05-29-2024 Creatinine [Mass/Vol] 1.31 mg/dL High 0.55-1.02 [facility] Comment on above: The validity of the calculated GFR & GFRAA in patients over 70 years has not been determined. Clinical correlation is essential. Serum or plasma urea nitroge n measurement (mass/volume)Ordered By: Melissa Reed on 05-29-2024 Urea nitrogen [Mass/Vol] 29 mg/dL High 7-18 [facility] Sodium levelOrdered By: Rubin Reed on 05-29-2024 Sodium [Moles/Vol] 142 mmol/L 136-145 [facility] Basic Metabolic Profile (BMP )on 05-15-2024 BUN/CRE 31.1 RATIO High 10-20 [facility] Comment on above: Order Comment: 157 Performed By: #### L 501.5200, L500.2500 #### [facility] [address] [place], [address] CA,Total 8.7 mg/dL Normal 8.5-10.1 [facility] Comment on above: Order Comment: 157 Performed By: #### L [id number], L500.2500 #### [facility] [address] [place], [address] Chloride [Moles/Vol] 105 mmol/L Normal 98-107 [facility] Comment on above: Order Comment: 157 Performed By: #### L 501.5200, L500.2500 #### [facility] [address] [place], [address] CO2 [Moles/Vol] 30.0 mmol/L Normal 21.0-32.0 [facility] Comment on above: Order Comment: 157 Performed By: #### L 501.5200, L500.2500 #### [facility] [address] [place], [address] Creatinine [Mass/Vol] 1.06 mg/dL High 0.55-1.02 [facility] Comment on above: Order Comment: 157 Result Comment: The validity of the calculated GFR GFRAA in patients over 70 years has not been determined. Clinical correlation is essential. Performed By: #### L 501.5200, L500.2500 #### [facility] [address] [place], [address] EST GFR - AA 64 mL/min Normal >60 [facility] Comment on above: Order Comment: 157 Result Comment: Afri can Guatemalan GFR Calc Performed By: #### L 501.5200, L500.2500 #### [facility] [address] [place], [address] GAP 5 Normal 5-15 [facility] Comment on above: Order Comment: 157 Performed By: #### L 501.5200, L500.2500 #### [facility] [address] [place], [address] GFR/1.73 sq M.predicted among non-blacks MDRD (S/P/Bld) [Vol rate/Area] 53 mL/min/{1.73_m2} Low >60 [facility] Comment on above: Order Comment: 157 Result Comment: Non- GFR Calc Performed By: #### L 501.5200, L500.2500 #### [facility] [address] [place], [address] Glucose [Mass/Vol] 119 mg/dL High 74-106 [facility] Comment on above: Order Comment: 157 Result Comment: Fast ing Glucose result from 100 to 125 mg/dL suggests IMPAIRED HOMEOSTASIS per A.D.A. criteria. Performed By: #### L 501.5200, L500.2500 #### [facility] [address] [place], [address] Potassium [Moles/Vol] 3.6 mmol/L Normal 3.5-5.1 [facility] Comment on above: Order Comment: 157 Performed By: #### L 501.5200, L500.2500 #### [facility] [address] [place], [address] Sodium [Moles/Vol] 140 mmol/L Normal 136-145 [facility] Comment on above: Order Comment: 157 Performed By: #### L 501.5200, L500.2500 #### [facility] [address] [place], [address] Urea nitrogen [Mass/Vol] 33 mg/dL High 7-18 [facility] Comment on above: Order Comment: 157 Performed By: #### L 501.5200, L500.2500 #### [facility] [address] [place], [address] Magnesiumon 05-15-2024 Magnesium [Mass/Vol] 2.1 mg/dL Normal 1.6-2.6 [facility] Comment on above: Order Comment: 157 Performed By: #### L 501.5200, L500.2500 #### [facility] [address] [place], [address] Basic Metabolic Profile (BMP )on 05-01-2024 BUN/CRE 21.4 RATIO High 10-20 [facility] Comment on above: Order Comment: 157 Performed By: #### L 501.5200, L500.2500 #### [facility] [address] [place], [address] CA,Total 9.2 mg/dL Normal 8.5-10.1 [facility] Comment on above: Order Comment: 157 Performed By: #### L 501.5200, L500.2500 #### [facility] [address] [place], [address] Chloride [Moles/Vol] 106 mmol/L Normal 98-107 [facility] Comment on above: Order Comment: 157 Performed By: #### L [id number], L500.2500 #### [facility] [address] [place], [address] CO2 [Moles/Vol] 27.0 mmol/L Normal 21.0-32.0 [facility] Comment on above: Order Comment: 157 Performed By: #### L 501.5200, L500.2500 #### [facility] [address] [place], [address] Creatinine [Mass/Vol] 1.26 mg/dL High 0.55-1.02 [facility] Comment on above: Order Comment: 157 Result Comment: The validity of the calculated GFR GFRAA in patients over 70 years has not been determined. Clinical correlation is essential. Performed By: #### L 501.5200, L500.2500 #### [facility] [address] [place], [address] EST GFR - AA 53 mL/min Low >60 [facility] Comment on above: Order Comment: 157 Result Comment: Afri can [place]alan GFR Calc Performed By: #### L 501.5200, L500.2500 #### [facility] [address] [place], [address] GAP 7 Normal 5-15 [facility] Comment on above: Order Comment: 157 Performed By: #### L 501.5200, L500.2500 #### [facility] [address] [place], [address] GFR/1.73 sq M.predicted among non-blacks MDRD (S/P/Bld) [Vol rate/Area] 43 mL/min/{1.73_m2} Low >60 [facility] Comment on above: Order Comment: 157 Result Comment: Non- GFR Calc Performed By: #### L 501.5200, L500.2500 #### [facility] [address] [place], [address] Glucose [Mass/Vol] 126 mg/dL High 74-106 [facility] Comment on above: Order Comment: 157 Result Comment: Fast ing Glucose result greater than or equal to 126 mg/dL suggests DIABETES MELLITUS per A.D.A. criteria. Performed By: #### L 501.5200, L500.2500 #### [facility] [address] [place], [address] Potassium [Moles/Vol] 4.3 mmol/L Normal 3.5-5.1 [facility] Comment on above: Order Comment: 157 Performed By: #### L 501.5200, L500.2500 #### [facility] [address] [place], [address] Sodium [Moles/Vol] 140 mmol/L Normal 136-145 [facility] Comment on above: Order Comment: 157 Performed By: #### L 501.5200, L500.2500 #### [facility] [address] [place], [address] Urea nitrogen [Mass/Vol] 27 mg/dL High 7-18 [facility] Comment on above: Order Comment: 157 Performed By: #### L [id number], L500.2500 #### [facility] [address] [place], [address] Magnesiumon 05-01-2024 Magnesium [Mass/Vol] 2.1 mg/dL Normal 1.6-2.6 [facility] Comment on above: Order Comment: 157 Performed By: #### L 501.5200, L500.2500 #### [facility] [address] [place], [place], [address] 36on 02-05-2024 36 Okay, thank you appreciate her letting us know [facility] 36 We had returned mail on patient---I called her to get her new address. She stated that she is in assisted living at [facility] and will not be a patient at our office. She also wanted Dr. Lopez to know that she appreciates everything that he has done for her over the years. [facility] Progress Noteon 01-03-2024 Progress Note error [facility] Progress Noteon 12-29-2023 Progress Note Please schedule AWV. Normal [facility] Progress Note Called patient---moustapha ne number is not working--sent letter by mail. [facility] 36on 10-27-2023 36 Spoke with jaylon Pascual it was a mistake and he did not need anything for the patient. [facility] 36on 10-26-2023 36 As far as I know she still considers us her primary care however she misses a lot of appointments and cancels at other times. [facility] 36 Name of caller: Ankur Valdivia Contact phone number: [phone] Relationship to Patient: [facility] Provider: Dr Lopez Practice: [facility] Practice Chief Complaint/Reason for Call: Ankur Valdivia from [facility] would like to confirm that patient is still being treated at this office. Please advise. Best time of day caller can be reached: any Patient advised that office/PCP has 24-48 business hours to return their call: Yes [facility] Basophil percentageOrdered B y: Melissa Millskasidiony on 09-29-2023 Chloride [Moles/Vol] 106 mmol/L 98-107 [facility] Glucose [Mass/Vol] 165 mg/dL 74-106 [facility] Comment on above: Fasting Glucose resu lt greater than or equal to 126 mg/dL suggests DIABETES MELLITUS per A.D.A. criteria. Potassium [Moles/Vol] 3.5 mmol/L 3.5-5.1 [facility] Sodium [Moles/Vol] 135 mmol/L 136-145 [facility] - Chemistry and C hemistry - challengeOrdered By: Melissa Reed on 09-29-2023 CO2 [Moles/Vol] 26.0 mmol/L 21.0-32.0 [facility] Urea nitrogen/Creatinine [Mass ratio] 23.7 mg/mg 10-20 [facility] No Panel InformationOrdered By: Melissa Reed on 09-29-2023 Estimated GFR (MDRD) Amer 57 mL/min >60 [facility] Comment on above: GFR Calc Estimated GFR (MDRD) Non-Af Amer 47 mL/min >60 [facility] Comment on above: Non- GFR Calc Serum or plasma calcium danae urement (mass/volume)Ordered By: Melissa Reed on 09-29-2023 Calcium [Mass/Vol] 8.5 mg/dL 8.5-10.1 [facility] Serum or plasma creatinine m easurement (mass/volume)Ordered By: Melissa Reed on 09-29-2023 Creatinine [Mass/Vol] 1.18 mg/dL 0.55-1.02 [facility] Comment on above: The validity of the calculated GFR & GFRAA in patients over 70 years has not been determined. Clinical correlation is essential. Serum or plasma urea nitroge n measurement (mass/volume)Ordered By: Melissa Reed on 09-29-2023 Urea nitrogen [Mass/Vol] 28 mg/dL 7-18 [facility] Thin prep Papanicolaou smear with manual screeningOrdered By: Melissa Reed on 09-29-2023 Thin prep Papanicolaou smear with manual screening 3 5-15 [facility] Basophil percentageOrdered B y: Melsisa Reed on 09-14-2023 Chloride [Moles/Vol] 106 mmol/L 98-107 [facility] Glucose [Mass/Vol] 191 mg/dL 74-106 [facility] Comment on above: Fasting Glucose resu lt greater than or equal to 126 mg/dL suggests DIABETES MELLITUS per A.D.A. criteria. Potassium [Moles/Vol] 3.8 mmol/L 3.5-5.1 [facility] Sodium [Moles/Vol] 138 mmol/L 136-145 [facility] - Chemistry and C hemistry - challengeOrdered By: Melissa Reed on 09-14-2023 CO2 [Moles/Vol] 29.0 mmol/L 21.0-32.0 [facility] Urea nitrogen/Creatinine [Mass ratio] 17.8 mg/mg 10-20 [facility] No Panel InformationOrdered By: Melissa Reed on 09-14-2023 Estimated GFR (MDRD) Amer 63 mL/min >60 [facility] Comment on above: GFR Calc Estimated GFR (MDRD) Non-Af Amer 52 mL/min >60 [facility] Comment on above: Non- GFR Calc Serum or plasma calcium danae urement (mass/volume)Ordered By: Melissa Reed on 09-14-2023 Calcium [Mass/Vol] 8.7 mg/dL 8.5-10.1 [facility] Serum or plasma creatinine m easurement (mass/volume)Ordered By: Melissa Reed on 09-14-2023 Creatinine [Mass/Vol] 1.07 mg/dL 0.55-1.02 [facility] Comment on above: The validity of the calculated GFR & GFRAA in patients over 70 years has not been determined. Clinical correlation is essential. Serum or plasma urea nitroge n measurement (mass/volume)Ordered By: Melissa Reed on 09-14-2023 Urea nitrogen [Mass/Vol] 19 mg/dL 7-18 [facility] Thin prep Papanicolaou smear with manual screeningOrdered By: Melissa Reed on 09-14-2023 Thin prep Papanicolaou smear with manual screening 3 5-15 [facility] Basophil percentageOrdered B y: Melissa Reed on 08-31-2023 Chloride [Moles/Vol] 104 mmol/L 98-107 [facility] Glucose [Mass/Vol] 169 mg/dL 74-106 [facility] Comment on above: Fasting Glucose resu lt greater than or equal to 126 mg/dL suggests DIABETES MELLITUS per A.D.A. criteria. Potassium [Moles/Vol] 3.6 mmol/L 3.5-5.1 [facility] Sodium [Moles/Vol] 140 mmol/L 136-145 [facility] - Chemistry and C hemistry - challengeOrdered By: Melissa Reed on 08-31-2023 CO2 [Moles/Vol] 30.0 mmol/L 21.0-32.0 [facility] Urea nitrogen/Creatinine [Mass ratio] 20.3 mg/mg 10-20 [facility] No Panel InformationOrdered By: Melissa Reed on 08-31-2023 Estimated GFR (MDRD) Amer 57 mL/min >60 [facility] Comment on above: GFR Calc Estimated GFR (MDRD) Non-Af Amer 47 mL/min >60 [facility] Comment on above: Non- GFR Calc Serum or plasma calcium danae urement (mass/volume)Ordered By: Melissa Reed on 08-31-2023 Calcium [Mass/Vol] 8.9 mg/dL 8.5-10.1 [facility] Serum or plasma creatinine m easurement (mass/volume)Ordered By: Melissa Reed on 08-31-2023 Creatinine [Mass/Vol] 1.18 mg/dL 0.55-1.02 [facility] Comment on above: The validity of the calculated GFR & GFRAA in patients over 70 years has not been determined. Clinical correlation is essential. Serum or plasma urea nitroge n measurement (mass/volume)Ordered By: Melissa Reed on 08-31-2023 Urea nitrogen [Mass/Vol] 24 mg/dL 7-18 [facility] Thin prep Papanicolaou smear with manual screeningOrdered By: Melissa Reed on 08-31-2023 Thin prep Papanicolaou smear with manual screening 6 5-15 [facility] Basophil percentageOrdered B y: Melissa Reed on 08-17-2023 Chloride [Moles/Vol] 105 mmol/L 98-107 [facility] Glucose [Mass/Vol] 192 mg/dL 74-106 [facility] Comment on above: Fasting Glucose resu lt greater than or equal to 126 mg/dL suggests DIABETES MELLITUS per A.D.A. criteria. Potassium [Moles/Vol] 3.8 mmol/L 3.5-5.1 [facility] Sodium [Moles/Vol] 138 mmol/L 136-145 [facility] - Chemistry and C hemistry - challengeOrdered By: Melissa Reed on 08-17-2023 CO2 [Moles/Vol] 29.0 mmol/L 21.0-32.0 [facility] Urea nitrogen/Creatinine [Mass ratio] 22.8 mg/mg 10-20 [facility] No Panel InformationOrdered By: Melissa Reed on 08-17-2023 Estimated GFR (MDRD) Amer 59 mL/min >60 [facility] Comment on above: GFR Calc Estimated GFR (MDRD) Non-Af Amer 49 mL/min >60 [facility] Comment on above: Non- GFR Calc Serum or plasma calcium danae urement (mass/volume)Ordered By: Melissa Reed on 08-17-2023 Calcium [Mass/Vol] 8.8 mg/dL 8.5-10.1 [facility] Serum or plasma creatinine m easurement (mass/volume)Ordered By: Melissa Reed on 08-17-2023 Creatinine [Mass/Vol] 1.14 mg/dL 0.55-1.02 [facility] Comment on above: The validity of the calculated GFR & GFRAA in patients over 70 years has not been determined. Clinical correlation is essential. Serum or plasma urea nitroge n measurement (mass/volume)Ordered By: Melissa Reed on 08-17-2023 Urea nitrogen [Mass/Vol] 26 mg/dL 7-18 [facility] Thin prep Papanicolaou smear with manual screeningOrdered By: Melissa Reed on 08-17-2023 Thin prep Papanicolaou smear with manual screening 4 5-15 [facility] Basophil percentageOrdered B y: Melissa Reed on 08-14-2023 Chloride [Moles/Vol] 104 mmol/L 98-107 [facility] Glucose [Mass/Vol] 146 mg/dL 74-106 [facility] Comment on above: Fasting Glucose resu lt greater than or equal to 126 mg/dL suggests DIABETES MELLITUS per A.D.A. criteria. Potassium [Moles/Vol] 3.4 mmol/L 3.5-5.1 [facility] Sodium [Moles/Vol] 138 mmol/L 136-145 [facility] - Chemistry and C hemistry - challengeOrdered By: Melissa Reed on 08-14-2023 CO2 [Moles/Vol] 29.0 mmol/L 21.0-32.0 [facility] Urea nitrogen/Creatinine [Mass ratio] 24.8 mg/mg 10-20 [facility] No Panel InformationOrdered By: Melissa Reed on 08-14-2023 Estimated GFR (MDRD) Amer 60 mL/min >60 [facility] Comment on above: GFR Calc Estimated GFR (MDRD) Non-Af Amer 49 mL/min >60 [facility] Comment on above: Non- GFR Calc Serum or plasma calcium danae urement (mass/volume)Ordered By: Melissa Reed on 08-14-2023 Calcium [Mass/Vol] 9.1 mg/dL 8.5-10.1 [facility] Serum or plasma creatinine m easurement (mass/volume)Ordered By: Melissa Reed on 08-14-2023 Creatinine [Mass/Vol] 1.13 mg/dL 0.55-1.02 [facility] Comment on above: The validity of the calculated GFR & GFRAA in patients over 70 years has not been determined. Clinical correlation is essential. Serum or plasma urea nitroge n measurement (mass/volume)Ordered By: Melissa Reed on 08-14-2023 Urea nitrogen [Mass/Vol] 28 mg/dL 7-18 [facility] Thin prep Papanicolaou smear with manual screeningOrdered By: Melissa Reed on 08-14-2023 Thin prep Papanicolaou smear with manual screening 5 5-15 [facility] Basophil percentageOrdered B y: Melissa Reed on 07-31-2023 Chloride [Moles/Vol] 107 mmol/L 98-107 [facility] Glucose [Mass/Vol] 149 mg/dL 74-106 [facility] Comment on above: Fasting Glucose resu lt greater than or equal to 126 mg/dL suggests DIABETES MELLITUS per A.D.A. criteria. Potassium [Moles/Vol] 3.4 mmol/L 3.5-5.1 [facility] Sodium [Moles/Vol] 142 mmol/L 136-145 [facility] - Chemistry and C hemistry - challengeOrdered By: Melissa Reed on 07-31-2023 CO2 [Moles/Vol] 30.0 mmol/L 21.0-32.0 [facility] Urea nitrogen/Creatinine [Mass ratio] 21.7 mg/mg 10-20 [facility] No Panel InformationOrdered By: Melissa Reed on 07-31-2023 Estimated GFR (MDRD) Amer 64 mL/min >60 [facility] Comment on above: GFR Calc Estimated GFR (MDRD) Non-Af Amer 53 mL/min >60 [facility] Comment on above: Non- GFR Calc Serum or plasma calcium danae urement (mass/volume)Ordered By: Melissa Reed on 07-31-2023 Calcium [Mass/Vol] 8.7 mg/dL 8.5-10.1 [facility] Serum or plasma creatinine m easurement (mass/volume)Ordered By: Melissa Reed on 07-31-2023 Creatinine [Mass/Vol] 1.06 mg/dL 0.55-1.02 [facility] Comment on above: The validity of the calculated GFR & GFRAA in patients over 70 years has not been determined. Clinical correlation is essential. Serum or plasma urea nitroge n measurement (mass/volume)Ordered By: Melissa Reed on 07-31-2023 Urea nitrogen [Mass/Vol] 23 mg/dL 7-18 [facility] Thin prep Papanicolaou smear with manual screeningOrdered By: Melissa Reed on 07-31-2023 Thin prep Papanicolaou smear with manual screening 5 5-15 [facility] Basophil percentageOrdered B y: Melissa Reed on 07-17-2023 Chloride [Moles/Vol] 106 mmol/L 98-107 [facility] Glucose [Mass/Vol] 141 mg/dL 74-106 [facility] Comment on above: Fasting Glucose resu lt greater than or equal to 126 mg/dL suggests DIABETES MELLITUS per A.D.A. criteria. Potassium [Moles/Vol] 4.0 mmol/L 3.5-5.1 [facility] Comment on above: Moderate Hemolysis, Result may be falsely increased. Sodium [Moles/Vol] 137 mmol/L 136-145 [facility] - Chemistry and C hemistry - challengeOrdered By: Melissa Reed on 07-17-2023 CO2 [Moles/Vol] 29.0 mmol/L 21.0-32.0 [facility] Urea nitrogen/Creatinine [Mass ratio] 22.6 mg/mg 10-20 [facility] No Panel InformationOrdered By: Melissa Reed on 07-17-2023 Estimated GFR (MDRD) Amer 58 mL/min >60 [facility] Comment on above: GFR Calc Estimated GFR (MDRD) Non-Af Amer 48 mL/min >60 [facility] Comment on above: Non- GFR Calc Serum or plasma calcium danae urement (mass/volume)Ordered By: Melissa Reed on 07-17-2023 Calcium [Mass/Vol] 9.3 mg/dL 8.5-10.1 [facility] Serum or plasma creatinine m easurement (mass/volume)Ordered By: Melissa Reed on 07-17-2023 Creatinine [Mass/Vol] 1.15 mg/dL 0.55-1.02 [facility] Comment on above: The validity of the calculated GFR & GFRAA in patients over 70 years has not been determined. Clinical correlation is essential. Serum or plasma urea nitroge n measurement (mass/volume)Ordered By: Melissa Reed on 07-17-2023 Urea nitrogen [Mass/Vol] 26 mg/dL 7-18 [facility] Thin prep Papanicolaou smear with manual screeningOrdered By: Melissa Reed on 07-17-2023 Thin prep Papanicolaou smear with manual screening 2 5-15 [facility] Basophil percentageOrdered B y: Melissa Reed on 07-03-2023 Chloride [Moles/Vol] 106 mmol/L 98-107 [facility] Glucose [Mass/Vol] 134 mg/dL 74-106 [facility] Comment on above: Fasting Glucose resu lt greater than or equal to 126 mg/dL suggests DIABETES MELLITUS per A.D.A. criteria. Potassium [Moles/Vol] 4.0 mmol/L 3.5-5.1 [facility] Sodium [Moles/Vol] 140 mmol/L 136-145 [facility] - Chemistry and C hemistry - challengeOrdered By: Melissa Reed on 07-03-2023 CO2 [Moles/Vol] 28.0 mmol/L 21.0-32.0 [facility] Urea nitrogen/Creatinine [Mass ratio] 20.5 mg/mg 10-20 [facility] No Panel InformationOrdered By: Melissa Reed on 07-03-2023 Estimated GFR (MDRD) Amer 71 mL/min >60 [facility] Comment on above: GFR Calc Estimated GFR (MDRD) Non-Af Amer 58 mL/min >60 [facility] Comment on above: Non- GFR Calc Serum or plasma calcium danae urement (mass/volume)Ordered By: Melissa Reed on 07-03-2023 Calcium [Mass/Vol] 8.6 mg/dL 8.5-10.1 [facility] Serum or plasma creatinine m easurement (mass/volume)Ordered By: Melissa Reed on 07-03-2023 Creatinine [Mass/Vol] 0.98 mg/dL 0.55-1.02 [facility] Comment on above: The validity of the calculated GFR & GFRAA in patients over 70 years has not been determined. Clinical correlation is essential. Serum or plasma urea nitroge n measurement (mass/volume)Ordered By: Melissa Reed on 07-03-2023 Urea nitrogen [Mass/Vol] 20 mg/dL 7-18 [facility] Thin prep Papanicolaou smear with manual screeningOrdered By: Melissa Reed on 07-03-2023 Thin prep Papanicolaou smear with manual screening 6 5-15 [facility] Culture, urineOrdered By: Sd Reed on 06-23-2023 Bacteria identified Cx Nom (U) ESBL Escherichia coli [facility] Progress Noteon 06-23-2023 Progress Note EMR reviewed. The patient was at [facility] for several weeks after a hospitalization. CM called and spoke with a staff member today and the patient was discharged to the [facility] living facility. PMH: RLS, HTN, GI-BLEED, CKD3, DM2, HYPOTHYROID, ANXIETY, DEPRESSION, HYPOKALEMIA, HYPERLIPIDEMIA HTN MEDS: AMLODIPINE 10MG DAILY SHE STATED THE NURSE HAS BEEN CHECKING HER BP'S 3 TIMES DAILY DM MEDS: LANTUS INSULIN 19 UNITS DAILY HUMALOG INSULIN 10 UNITS 3 TIMES DAILY WITH MEALS [id number] ON 03/01/23 THE PATIENT STATED SHE IS UNSURE OF WHAT INSULIN THEY ARE GIVING HER. THE NURSE IS MONITORING HER BLOOD SUGARS BEFORE EVERY MEAL. THE PATIENT DOESN'T KNOW WHAT HER READINGS HAVE BEEN. CM CALLED THE PATIENT'S SON-MAXIMINO AND RECEIVED THE [...] IS NOW SEEING THE DOCTOR AT THE [facility]. SDOH COMPLETED. CM WILL DISCHARGE THE PATIENT FROM THE [facility] POKER IN MGMT. PROGRAM DUE TO PCP CHANGING. Normal [facility] Absolute lymphocyte countOrd ered By: Melissa Reed on 06-20-2023 Lymphocytes Auto (Unsp spec) [#/Vol] 1.72 10*3/uL 0.83-4.51 [facility] Basophil percentageOrdered B y: Melissa Reed on 06-20-2023 Basophils/100 WBC (Bld) 1.0 % 0-1 [facility] Chloride [Moles/Vol] 108 mmol/L 98-107 [facility] Eosinophils/100 WBC (Bld) 7.8 % 0-5 [facility] Glucose [Mass/Vol] 155 mg/dL 74-106 [facility] Comment on above: Fasting Glucose resu lt greater than or equal to 126 mg/dL suggests DIABETES MELLITUS per A.D.A. criteria. Neutrophils (Bld) [#/Vol] 5.3 10*3/uL 2.0-7.7 [facility] Neutrophils/100 WBC (Bld) 61.1 % 47-70 [facility] Potassium [Moles/Vol] 4.0 mmol/L 3.5-5.1 [facility] Sodium [Moles/Vol] 140 mmol/L 136-145 [facility] WBC (Bld) [#/Vol] 8.6 10*3/uL 4.4-11.0 [facility] Blood erythrocytes count (nu mber/volume)Ordered By: Melissa Reed on 06-20-2023 RBC (Bld) [#/Vol] 3.97 10*6/uL 4.2-5.4 [facility] Blood hemoglobin measurement (mass/volume)Ordered By: Melissa Reed on 06-20-2023 Hemoglobin (Bld) [Mass/Vol] 11.0 g/dL 12.0-15.0 [facility] Blood lymphocytes/100 leukoc ytesOrdered By: Melissa Reed on 06-20-2023 Lymphocytes/100 WBC (Bld) 20.0 % 19-41 [facility] Blood monocytes/100 leukocyt esOrdered By: Melissa Reed on 06-20-2023 Monocytes/100 WBC (Bld) 9.9 % 0-10 [facility] Blood platelet mean volumeOr dered By: Melissa Reed on 06-20-2023 Platelet mean volume (Bld) [Entitic vol] 9.9 fL 6.2-12.0 [facility] Determination of erythrocyte mean corpuscular volume (MCV)Ordered By: Melissa Reed on 06-20-2023 MCV (RBC) [Entitic vol] 93.2 fL 81-99 [facility] Hematocrit Auto (Bld) [Volum e fraction]Ordered By: Melissa Reed on 06-20-2023 Hematocrit (Bld) [Volume fraction] 37.0 % 37-47 [facility] Laboratory - Chemistry and C hemistry - challengeOrdered By: Melissa Reed on 06-20-2023 CO2 [Moles/Vol] 30.0 mmol/L 21.0-32.0 [facility] Cobalamin (Vitamin B12) [Mass/Vol] 430 pg/mL 211-911 [facility] Magnesium [Mass/Vol] 2.0 mg/dL 1.6-2.6 [facility] Urea nitrogen/Creatinine [Mass ratio] 19.8 mg/mg 10-20 [facility] Laboratory - Hematology and Cell countsOrdered By: Melissa Reed on 06-20-2023 Erythrocyte distribution width (RBC) [Entitic vol] 48.2 fL 35.1-43.9 [facility] Erythrocyte distribution width (RBC) [Ratio] 14.2 % 11.6-14.6 [facility] Immature granulocytes/100 WBC (Bld) 0.200 % 0.0-0.9 [facility] Comment on above: IG% - Immature Granu locytes (promyelocytes, myelocytes and metamyelocytes) > 1% indicates that a LEFT SHIFT is Present. MCH (RBC) [Entitic mass] 27.7 pg 27.0-32.0 [facility] Nucleated RBC/100 WBC (Bld) [Ratio] 0 % 0-5 [facility] MCHC Auto (RBC) [Mass/Vol]Or dered By: Melissa Reed on 06-20-2023 MCHC (RBC) [Mass/Vol] 29.7 g/dL 32-36 [facility] No Panel InformationOrdered By: Melissa Reed on 06-20-2023 Estimated GFR (MDRD) Amer 72 mL/min >60 [facility] Comment on above: GFR Calc Estimated GFR (MDRD) Non-Af Amer 60 mL/min >60 [facility] Comment on above: Non- GFR Calc Thyroid Stimulating Hormone (TSH) 1.57 uIU/mL 0.358-3.74 [facility] Vitamin D 25-Hydroxy 60.6 ng/mL [facility] Comment on above: Vitamin D 25(OH) Sta tus Range Deficiency <20 ng/mL (50nmol/L) Insufficiency 20 - 30 ng/mL (50 - 75 nmol/L) Sufficiency 30 - 100 ng/mL (75 - 250 nmol/L) Toxicity >100 ng/mL (>250 nmol/L) Platelets bldOrdered By: Lillian Reed on 06-20-2023 Platelets (Bld) [#/Vol] 317 10*3/uL 150-450 [facility] Serum or plasma calcium danae urement (mass/volume)Ordered By: Melissa Reed on 06-20-2023 Calcium [Mass/Vol] 8.8 mg/dL 8.5-10.1 [facility] Serum or plasma creatinine m easurement (mass/volume)Ordered By: Melissa Reed on 06-20-2023 Creatinine [Mass/Vol] 0.96 mg/dL 0.55-1.02 [facility] Comment on above: The validity of the calculated GFR & GFRAA in patients over 70 years has not been determined. Clinical correlation is essential. Serum or plasma urea nitroge n measurement (mass/volume)Ordered By: Melissa Reed on 06-20-2023 Urea nitrogen [Mass/Vol] 19 mg/dL 7-18 [facility] Thin prep Papanicolaou smear with manual screeningOrdered By: Melissa Reed on 06-20-2023 Thin prep Papanicolaou smear with manual screening 2 5-15 [facility] Whole blood hemoglobin A1c/t otal hemoglobin ratio (mass fraction)Ordered By: Melissa Reed on 06-20-2023 HbA1c (Bld) [Mass fraction] 6.4 % 3.8-5.6 [facility] Comment on above: Normal < 5.7 % Predi abetic 5.7 - 6.4 % Diabetic >or= 6.5 % Please note range changes. Progress Noteon 06-07-2023 Progress Note CM called and spoke with a staff member at [facility]. The patient is still at the facility. CM will follow-up with the patient once she is discharged to home. Normal [facility] Culture, urineOrdered By: Anastasia Olvera on 05-10-2023 Bacteria identified Cx Nom (U) Klebsiella pneumoniae sp pneum [facility] Bacteria identified Cx Nom (U) Klebsiella pneumoniae sp pneum [facility] No Panel InformationOrdered By: Lambert Olvera on 05-01-2023 Thyroid Stimulating Hormone (TSH) 1.91 uIU/mL 0.358-3.74 [facility] Progress Noteon 04-06-2023 Progress Note EMR REVIEWED. [...] DAILY HUMALOG INSULIN 10 UNITS WITH MEALS [id number] ON 03/01/23 ?MONITORING BLOOD SUGARS CM CALLED AND SPOKE WITH THE PT'S SON-MAXIMINO. HE STATED THE PT. IS CURRENTLY ADMITTED TO [facility]. HE STATED THE PT. WILL PROBABLY BE GOING TO AN ASSISTED LIVING FACILITY WHEN SHE IS DISCHARGED DUE TO THE PT. NOT BEING ABLE TO CARE FOR HERSELF ALONE AT HOME. CM WILL FOLLOW-UP WITH THE PT. ONCE SHE IS DISCHARGED FROM SNF. Normal [facility] Basophil percentageOrdered B y: Lambert Olvera on 04-04-2023 Bilirubin [Mass/Vol] 0.30 mg/dL 0.20-1.00 [facility] Comment on above: For patients on eltr ombopag therapy, use of Dimension [place] TBIL is not recommended. Chloride [Moles/Vol] 109 mmol/L 98-107 [facility] Glucose [Mass/Vol] 112 mg/dL 74-106 [facility] Comment on above: Fasting Glucose resu lt from 100 to 125 mg/dL suggests IMPAIRED HOMEOSTASIS per A.D.A. criteria. Potassium [Moles/Vol] 4.2 mmol/L 3.5-5.1 [facility] Protein [Mass/Vol] 6.5 g/dL 6.4-8.2 [facility] Sodium [Moles/Vol] 140 mmol/L 136-145 [facility] WBC (Bld) [#/Vol] 8.5 10*3/uL 4.4-11.0 [facility] Blood erythrocytes count (nu mber/volume)Ordered By: Lambert Olvera on 04-04-2023 RBC (Bld) [#/Vol] 4.34 10*6/uL 4.2-5.4 [facility] Blood hemoglobin measurement (mass/volume)Ordered By: Lambert Olvera on 04-04-2023 Hemoglobin (Bld) [Mass/Vol] 11.9 g/dL 12.0-15.0 [facility] Blood platelet mean volumeOr dered By: Lambert Olvera on 04-04-2023 Platelet mean volume (Bld) [Entitic vol] 10.4 fL 6.2-12.0 [facility] Determination of erythrocyte mean corpuscular volume (MCV)Ordered By: Lambert Olvera on 04-04-2023 MCV (RBC) [Entitic vol] 91.9 fL 81-99 [facility] Hematocrit Auto (Bld) [Volum e fraction]Ordered By: Lambert Olvera on 04-04-2023 Hematocrit (Bld) [Volume fraction] 39.9 % 37-47 [facility] Laboratory - Chemistry and C hemistry - challengeOrdered By: Lambert Olvera on 04-04-2023 ALP [Catalytic activity/Vol] 96 U/L 45-117 [facility] ALT [Catalytic activity/Vol] 28 U/L 13-56 [facility] CO2 [Moles/Vol] 27.0 mmol/L 21.0-32.0 [facility] Globulin (S) [Mass/Vol] 3.7 g/dL 2.2-4.2 [facility] Urea nitrogen/Creatinine [Mass ratio] 21.8 mg/mg 10-20 [facility] Laboratory - Hematology and Cell countsOrdered By: Lambert Olvera on 04-04-2023 Erythrocyte distribution width (RBC) [Entitic vol] 47.0 fL 35.1-43.9 [facility] Erythrocyte distribution width (RBC) [Ratio] 13.9 % 11.6-14.6 [facility] MCH (RBC) [Entitic mass] 27.4 pg 27.0-32.0 [facility] MCHC Auto (RBC) [Mass/Vol]Or dered By: Lambert Olvera on 04-04-2023 MCHC (RBC) [Mass/Vol] 29.8 g/dL 32-36 [facility] No Panel InformationOrdered By: Lambert Olvera on 04-04-2023 Estimated GFR (MDRD) Amer 76 mL/min >60 [facility] Comment on above: GFR Calc Estimated GFR (MDRD) Non-Af Amer 63 mL/min >60 [facility] Comment on above: Non- GFR Calc Platelets bldOrdered By: Lisa Olvera on 04-04-2023 Platelets (Bld) [#/Vol] 315 10*3/uL 150-450 [facility] Serum or plasma albumin danae urement (mass/volume)Ordered By: Lambert Olvera on 04-04-2023 Albumin [Mass/Vol] 2.8 g/dL 3.2-5.0 [facility] Serum or plasma albumin/glob ulin mass ratioOrdered By: Lambert Olvera on 04-04-2023 Albumin/Globulin [Mass ratio] 0.8 {ratio} 0.9-2.4 [facility] Serum or plasma calcium danae urement (mass/volume)Ordered By: Lambert Olvera on 04-04-2023 Calcium [Mass/Vol] 8.6 mg/dL 8.5-10.1 [facility] Serum or plasma creatinine m easurement (mass/volume)Ordered By: Lambert Olvera on 04-04-2023 Creatinine [Mass/Vol] 0.92 mg/dL 0.55-1.02 [facility] Comment on above: The validity of the calculated GFR & GFRAA in patients over 70 years has not been determined. Clinical correlation is essential. Serum or plasma urea nitroge n measurement (mass/volume)Ordered By: Lambert Olvera on 04-04-2023 Urea nitrogen [Mass/Vol] 20 mg/dL 7-18 [facility] Thin prep Papanicolaou smear with manual screeningOrdered By: Lambert Olvera on 04-04-2023 Thin prep Papanicolaou smear with manual screening 20 U/L 15-37 [facility] Thin prep Papanicolaou smear with manual screening 4 5-15 [facility] Progress Noteon 03-31-2023 Progress Note THE PT. WAS IDENTIFI ED BY [facility] RN FROM THE [facility] DAILY CENSUS REPORT. CM WILL CONTINUE TO FOLLOW-UP WITH THE PT. FOR ANY ONGOING CM NEEDS. Normal [facility] Basophil percentageOrdered B y: Lambert Olvera on 03-20-2023 Chloride [Moles/Vol] 105 mmol/L 98-107 [facility] Glucose [Mass/Vol] 103 mg/dL 74-106 [facility] Comment on above: Fasting Glucose resu lt from 100 to 125 mg/dL suggests IMPAIRED HOMEOSTASIS per A.D.A. criteria. Potassium [Moles/Vol] 3.7 mmol/L 3.5-5.1 [facility] Sodium [Moles/Vol] 138 mmol/L 136-145 [facility] WBC (Bld) [#/Vol] 8.0 10*3/uL 4.4-11.0 [facility] Blood erythrocytes count (nu mber/volume)Ordered By: Lambert Olvera on 03-20-2023 RBC (Bld) [#/Vol] 3.75 10*6/uL 4.2-5.4 [facility] Blood hemoglobin measurement (mass/volume)Ordered By: Lambert Olvera on 03-20-2023 Hemoglobin (Bld) [Mass/Vol] 10.3 g/dL 12.0-15.0 [facility] Blood platelet mean volumeOr dered By: Lambert Olvera on 03-20-2023 Platelet mean volume (Bld) [Entitic vol] 10.5 fL 6.2-12.0 [facility] Determination of erythrocyte mean corpuscular volume (MCV)Ordered By: Lambert Olvera on 03-20-2023 MCV (RBC) [Entitic vol] 91.7 fL 81-99 [facility] Hematocrit Auto (Bld) [Volum e fraction]Ordered By: Lambert Olvera on 03-20-2023 Hematocrit (Bld) [Volume fraction] 34.4 % 37-47 [facility] Laboratory - Chemistry and C hemistry - challengeOrdered By: Lambert Olvera on 03-20-2023 CO2 [Moles/Vol] 30.0 mmol/L 21.0-32.0 [facility] Urea nitrogen/Creatinine [Mass ratio] 24.2 mg/mg 10-20 [facility] Laboratory - Hematology and Cell countsOrdered By: Lambert Olvera on 03-20-2023 Erythrocyte distribution width (RBC) [Entitic vol] 45.7 fL 35.1-43.9 [facility] Erythrocyte distribution width (RBC) [Ratio] 13.4 % 11.6-14.6 [facility] MCH (RBC) [Entitic mass] 27.5 pg 27.0-32.0 [facility] MCHC Auto (RBC) [Mass/Vol]Or dered By: Lambert Olvera on 03-20-2023 MCHC (RBC) [Mass/Vol] 29.9 g/dL 32-36 [facility] No Panel InformationOrdered By: Lambert Olvera on 03-20-2023 Estimated GFR (MDRD) Amer 70 mL/min >60 [facility] Comment on above: GFR Calc Estimated GFR (MDRD) Non-Af Amer 57 mL/min >60 [facility] Comment on above: Non- GFR Calc Thyroid Stimulating Hormone (TSH) 0.04 uIU/mL 0.358-3.74 [facility] Platelets bldOrdered By: Lisa Olvera on 03-20-2023 Platelets (Bld) [#/Vol] 333 10*3/uL 150-450 [facility] Serum or plasma calcium danae urement (mass/volume)Ordered By: Lambert Olvera on 03-20-2023 Calcium [Mass/Vol] 8.4 mg/dL 8.5-10.1 [facility] Serum or plasma creatinine m easurement (mass/volume)Ordered By: Lambert Olvrea on 03-20-2023 Creatinine [Mass/Vol] 0.99 mg/dL 0.55-1.02 [facility] Comment on above: The validity of the calculated GFR & GFRAA in patients over 70 years has not been determined. Clinical correlation is essential. Serum or plasma urea nitroge n measurement (mass/volume)Ordered By: Lambert Olvera on 03-20-2023 Urea nitrogen [Mass/Vol] 24 mg/dL 7-18 [facility] Thin prep Papanicolaou smear with manual screeningOrdered By: Lambert Olvera on 03-20-2023 Thin prep Papanicolaou smear with manual screening 3 5-15 [facility] Absolute lymphocyte countOrd ered By: Baljit Jaffe on 03-18-2023 Lymphocytes Auto (Unsp spec) [#/Vol] 1.42 10*3/uL 0.83-4.51 [facility] Basophil percentageOrdered B y: Baljit Jaffe on 03-18-2023 Basophils/100 WBC (Bld) 0.6 % 0-1 [facility] Chloride [Moles/Vol] 106 mmol/L 98-107 [facility] Eosinophils/100 WBC (Bld) 5.2 % 0-5 [facility] Glucose [Mass/Vol] 111 mg/dL 74-106 [facility] Comment on above: Fasting Glucose resu lt from 100 to 125 mg/dL suggests IMPAIRED HOMEOSTASIS per A.D.A. criteria. Neutrophils (Bld) [#/Vol] 5.0 10*3/uL 2.0-7.7 [facility] Neutrophils/100 WBC (Bld) 65.0 % 47-70 [facility] Potassium [Moles/Vol] 3.7 mmol/L 3.5-5.1 [facility] Sodium [Moles/Vol] 138 mmol/L 136-145 [facility] WBC (Bld) [#/Vol] 7.8 10*3/uL 4.4-11.0 [facility] Blood erythrocytes count (nu mber/volume)Ordered By: Baljit Jaffe on 03-18-2023 RBC (Bld) [#/Vol] 3.84 10*6/uL 4.2-5.4 [facility] Blood hemoglobin measurement (mass/volume)Ordered By: Baljit Jaffe on 03-18-2023 Hemoglobin (Bld) [Mass/Vol] 10.8 g/dL 12.0-15.0 [facility] Blood lymphocytes/100 leukoc ytesOrdered By: Baljit Jaffe on 03-18-2023 Lymphocytes/100 WBC (Bld) 18.3 % 19-41 [facility] Blood monocytes/100 leukocyt esOrdered By: Baljit Jaffe on 03-18-2023 Monocytes/100 WBC (Bld) 10.6 % 0-10 [facility] Blood platelet mean volumeOr dered By: Baljit Jaffe on 03-18-2023 Platelet mean volume (Bld) [Entitic vol] 9.9 fL 6.2-12.0 [facility] Determination of erythrocyte mean corpuscular volume (MCV)Ordered By: Baljit Jaffe on 03-18-2023 MCV (RBC) [Entitic vol] 90.6 fL 81-99 [facility] Glucose Glucometer (BldC) [M ass/Vol]Ordered By: Baljit Jaffe on 03-18-2023 Glucose [Mass/Vol] 111 mg/dL 74-106 [facility] Comment on above: MANAGEMENT OF PATIEN T CARE PER NURSING PROTOCOL Hematocrit Auto (Bld) [Volum e fraction]Ordered By: Baljit Jaffe on 03-18-2023 Hematocrit (Bld) [Volume fraction] 34.8 % 37-47 [facility] Laboratory - Chemistry and C hemistry - challengeOrdered By: Baljit Jaffe on 03-18-2023 CO2 [Moles/Vol] 27.0 mmol/L 21.0-32.0 [facility] Urea nitrogen/Creatinine [Mass ratio] 30.8 mg/mg 10-20 [facility] Laboratory - Hematology and Cell countsOrdered By: Baljit Jaffe on 03-18-2023 Erythrocyte distribution width (RBC) [Entitic vol] 44.9 fL 35.1-43.9 [facility] Erythrocyte distribution width (RBC) [Ratio] 13.4 % 11.6-14.6 [facility] Immature granulocytes/100 WBC (Bld) 0.300 % 0.0-0.9 [facility] Comment on above: IG% - Immature Granu locytes (promyelocytes, myelocytes and metamyelocytes) > 1% indicates that a LEFT SHIFT is Present. MCH (RBC) [Entitic mass] 28.1 pg 27.0-32.0 [facility] Nucleated RBC/100 WBC (Bld) [Ratio] 0 % 0-5 [facility] MCHC Auto (RBC) [Mass/Vol]Or dered By: Baljit Jaffe on 03-18-2023 MCHC (RBC) [Mass/Vol] 31.0 g/dL 32-36 [facility] No Panel InformationOrdered By: Baljit Jaffe on 03-18-2023 Estimated Creatinine Clearance Calc 41.46 ml/min [facility] Estimated GFR (MDRD) Amer 64 mL/min >60 [facility] Comment on above: GFR Calc Estimated GFR (MDRD) Non-Af Amer 53 mL/min >60 [facility] Comment on above: Non- GFR Calc Platelets bldOrdered By: Baljit Jaffe on 03-18-2023 Platelets (Bld) [#/Vol] 333 10*3/uL 150-450 [facility] Serum or plasma calcium danae urement (mass/volume)Ordered By: Baljit Jaffe on 03-18-2023 Calcium [Mass/Vol] 8.4 mg/dL 8.5-10.1 [facility] Serum or plasma creatinine m easurement (mass/volume)Ordered By: Baljit Jaffe on 03-18-2023 Creatinine [Mass/Vol] 1.07 mg/dL 0.55-1.02 [facility] Comment on above: The validity of the calculated GFR & GFRAA in patients over 70 years has not been determined. Clinical correlation is essential. Serum or plasma urea nitroge n measurement (mass/volume)Ordered By: Baljit Jaffe on 03-18-2023 Urea nitrogen [Mass/Vol] 33 mg/dL 7-18 [facility] Thin prep Papanicolaou smear with manual screeningOrdered By: Baljit Jaffe on 03-18-2023 Thin prep Papanicolaou smear with manual screening 5 5-15 [facility] COVID-19 virus antigen assay Ordered By: Baljit Jaffe on 03-17-2023 SARS-CoV-2 (COVID-19) Ag IA.rapid Ql (Resp) [facility] SARS-CoV-2 (COVID-19) Ag IA.rapid Ql (Resp) [facility] Gram stain for investigation of transfusion reactionOrdered By: Baljit Jaffe on 03-17-2023 Microscopic observation Gram stain Nom (Unsp spec) [facility] Microscopic observation Gram stain Nom (Unsp spec) [facility] Routine wound cultureOrdered By: Baljit Jaffe on 03-17-2023 Bacteria identified Cx Nom (Wound) No growth aerobically. [facility] Bacteria identified Cx Nom (Wound) No growth aerobically. [facility] 36on 03-15-2023 36 Sent via rightfax. Normal [facility] 36 Name of caller: Ricco noel [facility] Contact phone number: [phone] Relationship to Patient: [facility] Provider: Dr Lopez Practice: [facility] location Chief Complaint/Reason for Call: 03/15/23 Margaret calling to ask the office /provider about her Immunization Records she stated pt received Pneumococcal 23 on 04/10/21 but she is asking if anymore was given to pt if so, she will need those records faxed over to [phone] pls advise Best time of day caller can be reached: AM Patient advised that office/PCP has 24-48 business hours to return their call: Yes Normal [facility] CAR[facility]ORDon 03-06-2023 [facility] Patient Choice Patient Name: RADHA SANDOVAL Date of : 1945 [facility] Bacteria identified Cx Nom ( U)Ordered By: Kalpesh Dillon on 03-03-2023 Interpretation and review of laboratory results [facility] Discharge med list transmitted to [facility] via [facility]port per TCC request. [facility] Spoke with pt at bedside regarding POA, pt states she is not interested at this time to complete it and would consider completing at [facility] - did call Rafaela at [facility] to update her as well. 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 Will notify RN and TCC of this in rounds. Notified patient's son via phone of transportation time. SW remains available if any other needs concerns arise. [facility] You are not granted access to view this sensitive note. Normal [facility] [place] Insurance auth obtai shaina for [facility] nursing [facility], updated Dr Finch notified via [employer]. Normal [facility] CBC W Auto Differential pane l (Bld)on 03-03-2023 Basophils (Bld) [#/Vol] 0.1 10*3/uL 0.0 - 0.2 10*3/uL [facility] Basophils/100 WBC (Bld) 0.6 % 0.0 - 2.0 % [facility] Eosinophils (Bld) [#/Vol] 0.4 10*3/uL 0.0 - 0.5 10*3/uL [facility] Eosinophils/100 WBC (Bld) 4.4 % 1.0 - 6.0 % [facility] Erythrocyte distribution width (RBC) [Ratio] 13.4 % 11.5 - 14.5 % [facility] Hematocrit (Bld) [Volume fraction] 35.5 % 35.0 - 47.0 % [facility] Hemoglobin (Bld) [Mass/Vol] 11.6 g/dL Low 11.7 - 16.0 g/dL [facility] Interpretation and review of laboratory results Abnormal [facility] Lymphocytes (Bld) [#/Vol] 2.0 10*3/uL 1.0 - 4.3 10*3/uL [facility] Lymphocytes/100 WBC (Bld) 22.6 % 20.0 - 40.0 % [facility] MCH (RBC) [Entitic mass] 27.7 pg 26.0 - 34.0 pg [facility] MCHC (RBC) [Mass/Vol] 32.7 % 32.0 - 36.0 % [facility] MCV (RBC) [Entitic vol] 84.8 fL 80.0 - 98.0 fL [facility] Monocytes (Bld) [#/Vol] 1.0 10*3/uL High 0.0 - 0.8 10*3/uL [facility] Monocytes/100 WBC (Bld) 11.6 % High 2.0 - 10.0 % [facility] Neutrophils (Bld) [#/Vol] 5.4 10*3/uL 1.8 - 7.0 10*3/uL [facility] Neutrophils/100 WBC (Bld) 60.8 % 40.0 - 80.0 % [facility] Nucleated RBC/100 WBC (Bld) [Ratio] 0.0 % [facility] Platelet mean volume (Bld) [Entitic vol] 7.9 fL 7.4 - 12.4 fL [facility] Platelets (Bld) [#/Vol] 257 10*3/uL 140 - 440 10*3/uL [facility] RBC (Bld) [#/Vol] 4.19 10*6/uL 3.8 - 5.20 10*6/uL [facility] WBC (Bld) [#/Vol] 9.0 10*3/uL 3.6 - 10.7 10*3/uL [facility] CBC WITH AUTO DIFFERENTIALon 03-03-2023 Basophils (Bld) [#/Vol] 0.1 10*3/uL Normal 0.0-0.2 [facility] Comment on above: Performed By: #### L [id number] ####[employer]: MARTIN REYES ([phone])[facility] [place] (SBHLAB)[address] [place] [address] Basophils/100 WBC (Bld) 0.6 % Normal 0.0-2.0 [facility] Comment on above: Performed By: #### L [id number] ####[employer]: MARTIN REYES ([phone])[facility] ([facility])[address] [place] [address] Eosinophils (Bld) [#/Vol] 0.4 10*3/uL Normal 0.0-0.5 [facility] Comment on above: Performed By: #### L [id number] ####[employer]: MARTIN REYES ([phone])[facility] [place] (SBHLAB)[address] [place] [address] [place] Eosinophils/100 WBC (Bld) 4.4 % Normal 1.0-6.0 [facility] Comment on above: Performed By: #### L [id number] ####[employer]: MARTIN REYES ([phone])[facility] [place] (SBHLAB)[address] [place] [address] Erythrocyte distribution width (RBC) [Ratio] 13.4 % Normal 11.5-14.5 [facility] Comment on above: Performed By: #### L [id number] ####Clarity Specialists: MARTIN REYES ([phone])[facility] [place] (SB[facility])[address] ERYTHROCYTE MEAN CORPUSCULAR HEMOGLOBIN CONCENTRATION (G/DL) BY AUTOMATED 32.7 % Normal 32.0-36.0 [facility] Comment on above: Performed By: #### L [id number] ####Clarity Specialists: MARTIN REYES ([phone])[facility] [place] (SB[facility])[address] [place] [address] Hematocrit (Bld) [Volume fraction] 35.5 % Normal 35.0-47.0 [facility] Comment on above: Performed By: #### L [id number] ####Clarity Specialists: MARTIN REYES ([phone])[facility] [place] ([facility])[address] [place] [address] Hemoglobin (Bld) [Mass/Vol] 11.6 g/dL Low 11.7-16.0 [facility] Comment on above: Performed By: #### L [id number] ####Clarity Specialists: MARTIN REYES ([phone])[email or web address]]N (SBHLAB)[address] [place] [address] Lymphocytes (Bld) [#/Vol] 2.0 10*3/uL Normal 1.0-4.3 [facility] Comment on above: Performed By: #### L [id number] ####Clarity Specialists: MARTIN REYES ([phone])[facility] [place] (SB[facility]AB)[address] Lymphocytes/100 WBC (Bld) 22.6 % Normal 20.0-40.0 [facility] Comment on above: Performed By: #### L [id number] ####Clarity Specialists: MARTIN REYES ([phone])[facility] [place] (SBHLAB)[address] MCH (RBC) [Entitic mass] 27.7 pg Normal 26.0-34.0 [facility] Comment on above: Performed By: #### L [id number] ####Clarity Specialists: MARTIN REYES ([phone])[facility] [place] (SBHLAB)[address] MCV (RBC) [Entitic vol] 84.8 fL Normal 80.0-98.0 [facility] Comment on above: Performed By: #### L [id number] ####Clarity Specialists: MARTIN REYES ([phone])[facility] [place] (SBHLAB)[address] Monocytes (Bld) [#/Vol] 1.0 10*3/uL High 0.0-0.8 [facility] Comment on above: Performed By: #### L [id number] ####Clarity Specialists: MARTIN REYES ([phone])[facility] [place] (SBHLAB)[address] Monocytes/100 WBC (Bld) 11.6 % High 2.0-10.0 [facility] Comment on above: Performed By: #### L [id number] ####Clarity Specialists: MARTIN REYES ([phone])[facility] [place] (SB[facility]AB)[address] [place] [address] [place] Neutrophils (Bld) [#/Vol] 5.4 10*3/uL Normal 1.8-7.0 [facility] Comment on above: Performed By: #### L [id number] ####Clarity Specialists: MARTIN REYES ([phone])[facility] [place] (SBHLAB)[address] Neutrophils/100 WBC (Bld) 60.8 % Normal 40.0-80.0 [facility] Comment on above: Performed By: #### L [id number] ####Clarity Specialists: MARTIN [phone])ROGELIO [place] (SBHLAB)[address] NRBC (PER 100 WBCS) BY AUTOMATED COUNT 0.0 /100 WBCs Normal 0.0-2.0 [facility] Comment on above: Performed By: #### L [id number] ####Clarity Specialists: MARTIN REYES ([phone])[facility] [place] ([facility])[address] Platelet mean volume (Bld) [Entitic vol] 7.9 fL Normal 7.4-12.4 [facility] Comment on above: Performed By: #### L [id number] ####Clarity Specialists: MARTIN REYES ([phone])[facility]ITALDiony [place] (SBHLAB)[address] PLATELETS (10*3/UL) IN BLOOD AUTOMATED COUNT 257 10*3/uL Normal 140-440 [facility] Comment on above: Performed By: #### L [id number] ####Clarity Specialists: MARTIN REYES ([phone])[facility]ITALD[email or web address]]N (SBHLAB)[address] RBC (Bld) [#/Vol] 4.19 10*6/uL Normal 3.8-5.20 [facility] Comment on above: Performed By: #### L [id number] ####Clarity Specialists: MARTIN REYES ([phone])[facility] [place] ([facility])[address] WBC (Bld) [#/Vol] 9.0 10*3/uL Normal 3.6-10.7 [facility] Comment on above: Performed By: #### L [id number] ####Clarity Specialists: MARTIN REYES ([phone])[facility] [place] (SB[facility])[address] COMPREHENSIVE METABOLIC PANE Real 03-03-2023 Albumin [Mass/Vol] 3.2 g/dL Low 3.5-5.0 [facility] Comment on above: Performed By: #### L AB17 ####Clarity Specialists: MARTIN REYES ([phone])[facility] [place] ([facility])[address] ALP [Catalytic activity/Vol] 94 U/L Normal 38-126 [facility] Comment on above: Performed By: #### L AB17 ####Clarity Specialists: MARTIN REYES ([phone])[facility] [place] ([facility])[address] ALT [Catalytic activity/Vol] 12 U/L Normal 0-34 [facility] Comment on above: Performed By: #### L AB17 ####Clarity Specialists: MARTIN REYES ([phone])[facility] [place] (SB[facility])[address] Anion gap [Moles/Vol] 2 mmol/L Low 3-13 [facility] Comment on above: Performed By: #### L AB17 ####Clarity Specialists: MARTIN REYES ([phone])[email or web address]]N (SBHLAB)[address] AST [Catalytic activity/Vol] 34 U/L Normal 15-46 [facility] Comment on above: Performed By: #### L AB17 ####Clarity Specialists: MARTIN REYES ([phone])[facility] [place] (SB[facility])[address] Bilirubin [Mass/Vol] 0.3 mg/dL Normal 0.2-1.3 [facility] Comment on above: Performed By: #### L AB17 ####Clarity Specialists: MARTIN REYES ([phone])[facility] [place] ([facility])[address] Calcium [Mass/Vol] 8.1 mg/dL Low 8.4-10.4 [facility] Comment on above: Performed By: #### L AB17 ####Clarity Specialists: MARTIN REYES ([phone])[email or web address]]N (SBHLAB)[address] Chloride [Moles/Vol] 102 mmol/L Normal 98-107 [facility] Comment on above: Performed By: #### L AB17 ####Clarity Specialists: MARTIN HUANateJOSE R ([phone])[facility] (SB[facility])[address] CO2 [Moles/Vol] 30 mmol/L Normal 22-30 [facility] Comment on above: Performed By: #### L AB17 ####Clarity Specialists: MARTIN ERIC ([phone])[facility] (HLAB)[address] Creatinine [Mass/Vol] 0.82 mg/dL Normal 0.52-1.04 [facility] Comment on above: Performed By: #### L AB17 ####Clarity Specialists: MARTIN AMBROSEJOSE R ([phone])[facility] (HLAB)[address] GLOMERULAR FILTRATION RATE ML/MIN/1.73 SQ M.PREDICTED 72.9 mL/min/1.73m*2 Normal >60.0 [facility] Comment on above: Result Comment: Calc ulation based on the Chronic Kidney Disease Epidemiology Collaboration (CKD-EPI) equation refit without adjustment for race Performed By: #### L AB17 ####Clarity Specialists: MARTIN REYES ([phone])[facility] (SB[facility])[address] Glucose [Mass/Vol] 125 mg/dL High 70-100 [facility] Comment on above: Performed By: #### L AB17 ####Clarity Specialists: MARTIN REYES ([phone])[facility] (HLAB)[address] Potassium [Moles/Vol] 3.7 mmol/L Normal 3.5-5.1 [facility] Comment on above: Performed By: #### L AB17 ####Clarity Specialists: MARTIN REYES ([phone])[facility] [place] (SBHLAB)[address] Protein [Mass/Vol] 6.2 g/dL Low 6.3-8.2 [facility] Comment on above: Performed By: #### L AB17 ####Clarity Specialists: MARTIN REYES ([phone])[facility] [place] (SB[facility])[address] Sodium [Moles/Vol] 134 mmol/L Low 135-145 [facility] Comment on above: Performed By: #### L AB17 ####Clarity Specialists: MARTIN REYES ([phone])[facility] [place] (SB[facility])[address] Urea nitrogen [Mass/Vol] 15 mg/dL Normal 7-17 [facility] Comment on above: Performed By: #### L AB17 ####Clarity Specialists: MARTIN REYES ([phone])[facility] [place] (SBHLAB)[address] Comprehensive metabolic 1998 panelon 03-03-2023 Albumin [Mass/Vol] 3.2 g/dL Low 3.5 - 5.0 g/dL [facility] ALP [Catalytic activity/Vol] 94 U/L 38 - 126 U/L [facility] ALT [Catalytic activity/Vol] 12 U/L 0 - 34 U/L [facility] Anion gap [Moles/Vol] 2 mmol/L Low 3 - 13 mmol/L [facility] AST [Catalytic activity/Vol] 34 U/L 15 - 46 U/L [facility] Bilirubin [Mass/Vol] 0.3 mg/dL 0.2 - 1 .3 mg/dL [facility] Calcium [Mass/Vol] 8.1 mg/dL Low 8.4 - 10. 4 mg/dL [facility] Chloride [Moles/Vol] 102 mmol/L 98 - 10 7 mmol/L [facility] CO2 [Moles/Vol] 30 mmol/L 22 - 30 mmol/L [facility] Creatinine [Mass/Vol] 0.82 mg/dL 0.52 - 1.04 mg/dL [facility] GFR/1.73 sq M.predicted MDRD (S/P/Bld) [Vol rate/Area] 72.9 mL/min/{1.73_m2} - PINF [facility] Comment on above: Calculation based on the Chronic Kidney Disease Epidemiology Collaboration (CKD-EPI) equation refit without adjustment for race Glucose [Mass/Vol] 125 mg/dL High 70 - 100 mg/dL [facility] Interpretation and review of laboratory results Abnormal [facility] Potassium [Moles/Vol] 3.7 mmol/L 3.5 - 5.1 mmol/L [facility] Protein [Mass/Vol] 6.2 g/dL Low 6.3 - 8.2 g/dL [facility] Sodium [Moles/Vol] 134 mmol/L Low 135 - 145 mmol/L [facility] Urea nitrogen [Mass/Vol] 15 mg/dL 7 - 17 mg/dL [facility] POCT glucose meteron 023 Glucose [Mass/Vol] 215 mg/dL High 70 - 100 mg/dL [facility] Interpretation and review of laboratory results Abnormal [facility] Performed by: [facility] [place] [facility], [address] [place] [address] CLIA ID: [id number] [facility] Glucose [Mass/Vol] 158 mg/dL High 70 - 100 mg/dL [facility] Interpretation and review of laboratory results Abnormal [facility] Performed by: [facility], [address] [facility] [place] [address] CLIA ID: [id number] [facility] Progress Noteon 03-03-2023 Progress Note Discharged via ambulance to [facility] Normal [facility] Progress Note Report called to carolina garcia at [facility] at [phone] Normal [facility] Urine cultureOrdered By: Sanford Dillon on 03-03-2023 Bacteria identified Cx Nom (U) >100,000 CFU/mL Escherichia coli Abnormal [facility] 25-hydroxyvitamin D3 [Mass/V ol]on 03-02-2023 Therapy is based on measurement of Total 25-OHD with the following classification levels: Less than 20 ng/mL: Indicative of Vit D deficiency 20-30 ng/mL: Suggests Vit D insufficiency Optimal: Greater than or equal to 30 ng/mL Test performed by [email or web address] Competitive Immunoassay, measuring Total Vitamin D, not individual fractions. [facility] CARECOORDon 03-02-2023 CARECHARLES Received a call from Rafaela at [facility], they are able to accept, pt agreeable. 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 [facility] at this time Normal [facility] CBC W Auto Differential pane l (Bld)Ordered By: Wendy Bruce on 03-02-2023 Basophils (Bld) [#/Vol] 0.1 10*3/uL 0.0 - 0.2 10*3/uL [facility] Basophils/100 WBC (Bld) 0.7 % 0.0 - 2.0 % [facility] Eosinophils (Bld) [#/Vol] 0.4 10*3/uL 0.0 - 0.5 10*3/uL [facility] Eosinophils/100 WBC (Bld) 3.9 % 1.0 - 6.0 % [facility] Erythrocyte distribution width (RBC) [Ratio] 13.7 % 11.5 - 14.5 % [facility] Hematocrit (Bld) [Volume fraction] 36.1 % 35.0 - 47.0 % [facility] Hemoglobin (Bld) [Mass/Vol] 11.9 g/dL 11.7 - 16.0 g/dL [facility] Interpretation and review of laboratory results Abnormal [facility] Lymphocytes (Bld) [#/Vol] 1.9 10*3/uL 1.0 - 4.3 10*3/uL [facility] Lymphocytes/100 WBC (Bld) 20.1 % 20.0 - 40.0 % [facility] MCH (RBC) [Entitic mass] 28.5 pg 26.0 - 34.0 pg [facility] MCHC (RBC) [Mass/Vol] 32.8 % 32.0 - 36.0 % [facility] MCV (RBC) [Entitic vol] 86.8 fL 80.0 - 98.0 fL [facility] Monocytes (Bld) [#/Vol] 1.1 10*3/uL High 0.0 - 0.8 10*3/uL [facility] netTALK Monocytes/100 WBC (Bld) 11.4 % High 2.0 - 10.0 % [facility] Neutrophils (Bld) [#/Vol] 6.1 10*3/uL 1.8 - 7.0 10*3/uL [facility] Neutrophils/100 WBC (Bld) 63.9 % 40.0 - 80.0 % [facility] Nucleated RBC/100 WBC (Bld) [Ratio] 0.1 % [facility] Platelet mean volume (Bld) [Entitic vol] 8.4 fL 7.4 - 12.4 fL [facility] Platelets (Bld) [#/Vol] 252 10*3/uL 140 - 440 10*3/uL [facility] RBC (Bld) [#/Vol] 4.16 10*6/uL 3.8 - 5.20 10*6/uL [facility] WBC (Bld) [#/Vol] 9.5 10*3/uL 3.6 - 10.7 10*3/uL [facility] CBC WITH AUTO DIFFERENTIALon 03-02-2023 Basophils (Bld) [#/Vol] 0.1 10*3/uL Normal 0.0-0.2 [facility] Comment on above: Performed By: #### L [id number] ####Clarity Specialists: MARTIN REYES ([phone])[facility] [place] [address] Basophils/100 WBC (Bld) 0.7 % Normal 0.0-2.0 S [facility] Comment on above: Performed By: #### L [id number] ####Clarity Specialists: MARTIN REYES ([phone])[facility] (SBHLAB)[address] Eosinophils (Bld) [#/Vol] 0.4 10*3/uL Normal 0.0-0.5 [facility] Comment on above: Performed By: #### L [id number] ####Clarity Specialists: MARTIN REYES ([phone])[facility] (SBHLAB)[address] [place] [address] [place] Eosinophils/100 WBC (Bld) 3.9 % Normal 1.0-6.0 [facility] Comment on above: Performed By: #### L [id number] ####Clarity Specialists: MARTIN HUANateJOSE R ([phone])[facility] [place] (SBHLAB)[address] Erythrocyte distribution width (RBC) [Ratio] 13.7 % Normal 11.5-14.5 [facility] Comment on above: Performed By: #### L [id number] ####Clarity Specialists: MARTIN HUAWILFREDO ([phone])[email or web address]]N (SBHLAB)[address] ERYTHROCYTE MEAN CORPUSCULAR HEMOGLOBIN CONCENTRATION (G/DL) BY AUTOMATED 32.8 % Normal 32.0-36.0 [facility] Comment on above: Performed By: #### L [id number] ####Clarity Specialists: MARTIN ERIC ([phone])[email or web address]]N (SBHLAB)[address] Hematocrit (Bld) [Volume fraction] 36.1 % Normal 35.0-47.0 [facility] Comment on above: Performed By: #### L [id number] ####Clarity Specialists: MARTIN ABMROSEJOSE R ([phone])[email or web address]]N (SBHLAB)[address] Hemoglobin (Bld) [Mass/Vol] 11.9 g/dL Normal 11.7-16.0 [facility] Comment on above: Performed By: #### L [id number] ####Clarity Specialists: MARTIN HUAWILFREDO ([phone])[email or web address]]N (SBHLAB)[address] [place] [address] [place] Lymphocytes (Bld) [#/Vol] 1.9 10*3/uL Normal 1.0-4.3 [facility] Comment on above: Performed By: #### L [id number] ####Clarity Specialists: MARTIN AMBROSEJOSE R ([phone])[email or web address]]N (SBHLAB)[address] [place] [address] [place] Lymphocytes/100 WBC (Bld) 20.1 % Normal 20.0-40.0 [facility] Comment on above: Performed By: #### L [id number] ####Clarity Specialists: MARTIN AMBROSEJOSE R ([phone])[facility] [place] (SBHLAB)[address] MCH (RBC) [Entitic mass] 28.5 pg Normal 26.0-34.0 [facility] Comment on above: Performed By: #### L [id number] ####Clarity Specialists: MARTIN AMBROSEJOSE R ([phone])[facility] [place] (SBHLAB)[address] MCV (RBC) [Entitic vol] 86.8 fL Normal 80.0-98.0 S [facility] Comment on above: Performed By: #### L [id number] ####Clarity Specialists: MARTIN REYES ([phone])[facility] [place] (SBHLAB)[address] Monocytes (Bld) [#/Vol] 1.1 10*3/uL High 0.0-0.8 [facility] Comment on above: Performed By: #### L [id number] ####Clarity Specialists: MARTIN REYES ([phone])[facility] [place] (SBHLAB)[address] Monocytes/100 WBC (Bld) 11.4 % High 2.0-10.0 [facility] Comment on above: Performed By: #### L [id number] ####Clarity Specialists: MARTIN REYES ([phone])[facility] [place] (SBHLAB)[address] Neutrophils (Bld) [#/Vol] 6.1 10*3/uL Normal 1.8-7.0 [facility] Comment on above: Performed By: #### L [id number] ####Clarity Specialists: MARTIN REYES ([phone])[facility] [place] (SBHLAB)[address] Neutrophils/100 WBC (Bld) 63.9 % Normal 40.0-80.0 [facility] Comment on above: Performed By: #### L [id number] ####Clarity Specialists: MARTIN REYES ([phone])[facility] [place] (SB[facility])[address] NRBC (PER 100 WBCS) BY AUTOMATED COUNT 0.1 /100 WBCs Normal 0.0-2.0 [facility] Comment on above: Performed By: #### L [id number] ####Clarity Specialists: MARTIN REYES ([phone])[email or web address]]N (SBHLAB)[address] Platelet mean volume (Bld) [Entitic vol] 8.4 fL Normal 7.4-12.4 [facility] Comment on above: Performed By: #### L [id number] ####Clarity Specialists: MARTIN REYES ([phone])[email or web address]]N (SBHLAB)[address] [place] [address] [place] PLATELETS (10*3/UL) IN BLOOD AUTOMATED COUNT 252 10*3/uL Normal 140-440 [facility] Comment on above: Performed By: #### L [id number] ####Clarity Specialists: MARTIN REYES ([phone])[facility] [place] (SBHLAB)[address] RBC (Bld) [#/Vol] 4.16 10*6/uL Normal 3.8-5.20 [facility] Comment on above: Performed By: #### L [id number] ####Clarity Specialists: MARTIN REYES ([phone])[facility] [place] (SBHLAB)[address] [place] [address] [place] WBC (Bld) [#/Vol] 9.5 10*3/uL Normal 3.6-10.7 [facility] Comment on above: Performed By: #### L [id number] ####Clarity Specialists: MARTIN REYES ([phone])ROG[facility]IO [place] (SBHLAB)[address] COMPREHENSIVE METABOLIC PANE Real 03-02-2023 Albumin [Mass/Vol] 3.1 g/dL Low 3.5-5.0 [facility] Comment on above: Performed By: #### Eduardo TEAGUE, LAB17, [id number] ####Clarity Specialists: MARTIN REYES ([phone])[facility]ITALDiony [place] (SBHLAB)[address] ALP [Catalytic activity/Vol] 100 U/L Normal 38-126 [facility] Comment on above: Performed By: #### Eduardo TEAGUE, LAB17, [id number] ####Clarity Specialists: MARTIN REYES ([phone])[facility]ITALD[facility] [place] (SBHLAB)[address] ALT [Catalytic activity/Vol] 13 U/L Normal 0-34 [facility] Comment on above: Performed By: #### Eduardo TEAGUE, LAB17, [id number] ####Clarity Specialists: MARTIN REYES ([phone])[facility]ITALDiony [facility] [[email or web address]]Bert (SBHLAB)[address] Anion gap [Moles/Vol] 3 mmol/L Normal 3-13 [facility] Comment on above: Performed By: #### Eduardo TEAGUE, LAB17, [id number] ####Clarity Specialists: MARTIN REYES ([phone])[facility]ITALD[facility] [place] (SBHLAB)[address] AST [Catalytic activity/Vol] 22 U/L Normal 15-46 [facility] Comment on above: Performed By: #### Eduardo TEAGUE, LAB17, [id number] ####Clarity Specialists: MARTIN REYES ([phone])[facility]ITALD[facility] [place] (SBHLAB)[address] Bilirubin [Mass/Vol] 0.4 mg/dL Normal 0.2-1.3 [facility] Comment on above: Performed By: #### Eduardo TEAGUE, LAB17, [id number] ####Clarity Specialists: MARTIN REYES ([phone])[facility] [place] (SBHLAB)[address] Calcium [Mass/Vol] 8.4 mg/dL Normal 8.4-10.4 [facility] Comment on above: Performed By: #### Eduardo ABUmberto, LAB17, [id number] ####Clarity Specialists: MARTIN REYES ([phone])[facility] [place] (SBHLAB)[address] Chloride [Moles/Vol] 105 mmol/L Normal 98-107 [facility] Comment on above: Performed By: #### Eduardo TEAGUE, LAB17, [id number] ####Clarity Specialists: MARTIN REYES ([phone])[facility] [place] (SBHLAB)[address] CO2 [Moles/Vol] 27 mmol/L Normal 22-30 [facility] Comment on above: Performed By: #### Eduardo TEAGUE, LAB17, [id number] ####Clarity Specialists: MARTIN REYES ([phone])[facility] [place] (SBHLAB)[address] Creatinine [Mass/Vol] 0.77 mg/dL Normal 0.52-1.04 [facility] Comment on above: Performed By: #### Eduardo TEAGUE, LAB17, [id number] ####Clarity Specialists: MARTIN REYES ([phone])[facility] [place] (SBHLAB)[address] [place] [address] [place] GLOMERULAR FILTRATION RATE ML/MIN/1.73 SQ M.PREDICTED 78.6 mL/min/1.73m*2 Normal >60.0 [facility] Comment on above: Result Comment: Calc ulation based on the Chronic Kidney Disease Epidemiology Collaboration (CKD-EPI) equation refit without adjustment for race Performed By: #### Eduardo AB127, LAB17, [id number] ####Clarity Specialists: MARTIN REYES ([phone])[facility] [place] (SBHLAB)[address] Glucose [Mass/Vol] 97 mg/dL Normal 70-100 [facility] Comment on above: Performed By: #### Eduardo TEAGUE, LAB17, [id number] ####Clarity Specialists: MARTIN REYES ([phone])[facility]ITALD[facility] [place] (SBHLAB)[address] Potassium [Moles/Vol] 4.1 mmol/L Normal 3.5-5.1 [facility] Comment on above: Performed By: #### Eduardo TEAGUE, LAB17, [id number] ####Clarity Specialists: MARTIN REYES ([phone])[facility]ITALD[facility] [place] (SBHLAB)[address] Protein [Mass/Vol] 5.8 g/dL Low 6.3-8.2 [facility] Comment on above: Performed By: #### Eduardo TEAGUE, LAB17, [id number] ####[employer]: MARTIN REYES ([phone])[facility]PITALDiony OWENSBert (SBHLAB)[address] Sodium [Moles/Vol] 135 mmol/L Normal 135-145 [facility] Comment on above: Performed By: #### Eduardo TEAGUE, LAB17, [id number] ####[employer]: MARTIN REYES ([phone])[facility]ITALD[facility] OWENSBert (SBHLAB)[address] Urea nitrogen [Mass/Vol] 15 mg/dL Normal 7-17 [facility] Comment on above: Performed By: #### Eduardo TEAGUE, LAB17, [id number] ####[employer]: MARTIN REYES ([phone])[facility]ITALD[email or web address]]N (SBHLAB)[address] Comprehensive metabolic 1998 panelon 03-02-2023 Albumin [Mass/Vol] 3.1 g/dL Low 3.5 - 5.0 g/dL [facility] ALP [Catalytic activity/Vol] 100 U/L 38 - 126 U/L [facility] ALT [Catalytic activity/Vol] 13 U/L 0 - 34 U/L [facility] Anion gap [Moles/Vol] 3 mmol/L 3 - 13 mmol/L [facility] AST [Catalytic activity/Vol] 22 U/L 15 - 46 U/L [facility] Bilirubin [Mass/Vol] 0.4 mg/dL 0.2 - 1 .3 mg/dL [facility] Calcium [Mass/Vol] 8.4 mg/dL 8.4 - 10. 4 mg/dL [facility] Chloride [Moles/Vol] 105 mmol/L 98 - 10 7 mmol/L [facility] CO2 [Moles/Vol] 27 mmol/L 22 - 30 mmol/L [facility] Creatinine [Mass/Vol] 0.77 mg/dL 0.52 - 1.04 mg/dL [facility] GFR/1.73 sq M.predicted MDRD (S/P/Bld) [Vol rate/Area] 78.6 mL/min/{1.73_m2} - PINF [facility] Comment on above: Calculation based on the Chronic Kidney Disease Epidemiology Collaboration (CKD-EPI) equation refit without adjustment for race Glucose [Mass/Vol] 97 mg/dL 70 - 100 mg/dL [facility] Interpretation and review of laboratory results Abnormal [facility] Potassium [Moles/Vol] 4.1 mmol/L 3.5 - 5.1 mmol/L [facility] Protein [Mass/Vol] 5.8 g/dL Low 6.3 - 8.2 g/dL [facility] Sodium [Moles/Vol] 135 mmol/L 135 - 145 mmol/L [facility] Urea nitrogen [Mass/Vol] 15 mg/dL 7 - 17 mg/dL [facility] FREE T4on 03-02-2023 Free T4 [Mass/Vol] 3.28 ng/dL High 0.78-2.19 [facility] Comment on above: Performed By: #### L AB127, LAB17, [id number] ####Clarity Specialists: MARTIN REYES ([phone])[facility] ([facility])[address] [place] [address] Free T4 [Mass/Vol]on 023 Free T4 Dialysis [Mass/Vol] 3.28 ng/dL High 0.78 - 2.19 ng/dL [facility] netTALK No Panel Informationon 03-02 Interpretation and review of laboratory results Abnormal [facility] netTALK [facility] POCT glucose meteron 023 Glucose [Mass/Vol] 175 mg/dL High 70 - 100 mg/dL [facility]ALK Interpretation and review of laboratory results Abnormal [facility] netTALK Performed by: [facility] [place] [facility], [address] [facility] [place] [address] CLIA ID: [id number] [facility] netTALK [facility] Glucose [Mass/Vol] 214 mg/dL High 70 - 100 mg/dL [facility]ALK Interpretation and review of laboratory results Abnormal [facility] net[facility]ALK Performed by: [facility] [place] [facility], [address] [facility] [place] [address] CLIA ID: [id number] [facility] netTALK [facility] Glucose [Mass/Vol] 141 mg/dL High 70 - 100 mg/dL [facility]ALK Interpretation and review of laboratory results Abnormal [facility] net[facility]ALK Performed by: [facility] [place] [facility], [address] [facility] [place] [address] CLIA ID: [id number] [facility] netTALK [facility] net[facility]ALK Progress Noteon 03-02-2023 Progress Note Department of [employer] al Medicine Division of Endocrinology, Diabetes, & Metabolism Endocrinology Note Patient Name: Radha Sandoval : 1945 AGE: 77 y.o. Room/Bed: [facility]/[address] Admission Date: 02/28/2023 Visit Date: 03/02/2023 Reason for Endocrine Consult: DM-Uncontrolled Provider/Team Requesting Consult: Dr. Finch PCP: Shiv Lopez MD Outpt Energy Advisor: No ASSESSMENT: Type II diabetes with hyperglycemia, with penitentiary insulin use Postoperative hypothyroidism Patient admitted for [...] daily before breakfast Patient to discharge to [facility] Outpt Follow Up-- PCP SUBJECTIVE/HPI: CHIEF COMPLAINT: [...] diagnosis. She has been having diarrhea in 1781-1894, smt severe Glimepiride- started in 2015 Trulicity [...] reviewed. Constituti (more content not included)... Normal [facility] Progress Note Occupational Therapy OCCUPATIONAL THERAPY [facility] Treatment Note Name/MRN: Radha Sandoval ([id number]) Date of : 1945 Age: 77 y.o. [...] rehab service department Occupational Therapist Normal [facility] Progress Note [facility] Geriatric Medicine Inpatient Consult Service Admission Date: 02/28/2023 Assessment Principal Problem: LING (acute kidney injury) ([facility]/HCC) ([facility]) Active Problems: Declining functional status Weakness Anxiety Polypharmacy DNR (do not resuscitate) Insomnia Plan Declining functional status -Related to physical deconditioning, UTI, advanced age, diabetes type 2 -Continue PT/OT as able while inpatient -Anticipate d/c to SNF for ongoing daily PT/OT, patient agreeable to go to [facility] Fall Weakness -Multiple risk factors including [...] you Subjective Chief Complaint: low back pain/dysuria/polyuria/w eakness Geriatrics consulted for functional decline HPI- The [...] contact guard. Ambulated 30 ft x2. Recommending [facility] facility . Review of Systems Constitutional: Negative [...] pu (more content not included)... Normal [facility] Progress Note Nutrition rescreen completed. Pt referred to RD for uncontrolled DM, and nutrition supplement per Wound Care. Normal [facility] VITAMIN D DEFICIENCY SCREENI NG (VIT D 25)on 03-02-2023 VIT D 25-OH, TOTAL 17 ng/mL Low 30-100 [facility] Comment on above: Result Comment: LISA Mejia COMMENTS: Therapy is based on measurement of Total 25-OHD with the following classification levels: Less than 20 ng/mL: Indicative of Vit D deficiency 20-30 ng/mL: Suggests Vit D insufficiency Optimal: Greater than or equal to 30 ng/mL Test performed by [email or web address] Competitive Immunoassay, measuring Total Vitamin D, not individual fractions. 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 Therapy states SNF, but Patient wants HC instead. Normal [facility] CARECOORDon 03-01-2023 CARECOORD Care Managment Initi al Assessment Date: 03/01/2023 Patient Name: Radha Sandoval : 1945 Patient Information Source of Information: Patient Cognition/Language: WFL - Within Functional Limits Permission given to speak with patient accounting representative/caregive r as indicated: Yes Confirmation of [...] Prescription Coverage: Yes Pharmacy Used: [facility] Medication Management: Independent Transportation/Shopping : Independent Transportation [...] in SNF but would be able to [facility]. ROXANA liaison following, TCC to assist and follow as needed. Laura Jackson RN Normal [facility] CBC W Auto Differential pane l (Bld)Ordered By: Rosey Viera on 03-01-2023 Basophils (Bld) [#/Vol] 0.1 10*3/uL 0.0 - 0.2 10*3/uL [facility] Basophils/100 WBC (Bld) 0.6 % 0.0 - 2.0 % [facility] Eosinophils (Bld) [#/Vol] 0.2 10*3/uL 0.0 - 0.5 10*3/uL [facility] Eosinophils/100 WBC (Bld) 1.4 % 1.0 - 6.0 % [facility] Erythrocyte distribution width (RBC) [Ratio] 13.6 % 11.5 - 14.5 % [facility] Hematocrit (Bld) [Volume fraction] 34.9 % Low 35.0 - 47.0 % [facility] Hemoglobin (Bld) [Mass/Vol] 11.5 g/dL Low 11.7 - 16.0 g/dL [facility] Interpretation and review of laboratory results Abnormal [facility] Lymphocytes (Bld) [#/Vol] 1.7 10*3/uL 1.0 - 4.3 10*3/uL [facility] Lymphocytes/100 WBC (Bld) 12.6 % Low 20.0 - 40.0 % [facility] MCH (RBC) [Entitic mass] 28.7 pg 26.0 - 34.0 pg [facility] MCHC (RBC) [Mass/Vol] 33.0 % 32.0 - 36.0 % [facility] MCV (RBC) [Entitic vol] 87.1 fL 80.0 - 98.0 fL [facility] Monocytes (Bld) [#/Vol] 1.5 10*3/uL High 0.0 - 0.8 10*3/uL [facility] Monocytes/100 WBC (Bld) 10.8 % High 2.0 - 10.0 % [facility] Neutrophils (Bld) [#/Vol] 10.3 10*3/uL High 1.8 - 7.0 10*3/uL [facility] Neutrophils/100 WBC (Bld) 74.6 % 40.0 - 80.0 % [facility] Nucleated RBC/100 WBC (Bld) [Ratio] 0.0 % [facility] Platelet mean volume (Bld) [Entitic vol] 8.5 fL 7.4 - 12.4 fL [facility] Platelets (Bld) [#/Vol] 271 10*3/uL 140 - 440 10*3/uL [facility] RBC (Bld) [#/Vol] 4.00 10*6/uL 3.8 - 5.20 10*6/uL [facility] WBC (Bld) [#/Vol] 13.8 10*3/uL High 3.6 - 10.7 10*3/uL [facility] CBC WITH AUTO DIFFERENTIALon 03-01-2023 Basophils (Bld) [#/Vol] 0.1 10*3/uL Normal 0.0-0.2 [facility] Comment on above: Performed By: #### L [id number] ####Clarity Specialists: MARTIN REYES ([phone])[facility] [place] ([facility])[address] Basophils/100 WBC (Bld) 0.6 % Normal 0.0-2.0 S [facility] Comment on above: Performed By: #### L [id number] ####Clarity Specialists: MARTIN REYES ([phone])[facility] [place] ([facility])[address] [place] [address] Eosinophils (Bld) [#/Vol] 0.2 10*3/uL Normal 0.0-0.5 [facility] Comment on above: Performed By: #### L [id number] ####Clarity Specialists: MARTIN REYES ([phone])[facility] [place] ([facility])[address] [place] [address] Eosinophils/100 WBC (Bld) 1.4 % Normal 1.0-6.0 [facility] Comment on above: Performed By: #### L [id number] ####Clarity Specialists: MARTIN REYES ([phone])[facility] [place] ([facility])[address] [place] [address] Erythrocyte distribution width (RBC) [Ratio] 13.6 % Normal 11.5-14.5 [facility] Comment on above: Performed By: #### L [id number] ####Clarity Specialists: MARTIN REYES ([phone])[facility] ([facility])[address] [place] [address] ERYTHROCYTE MEAN CORPUSCULAR HEMOGLOBIN CONCENTRATION (G/DL) BY AUTOMATED 33.0 % Normal 32.0-36.0 [facility] Comment on above: Performed By: #### L [id number] ####Clarity Specialists: MARTIN HUANateJOSE R ([phone])[facility] [place] (SBHL[facility])[address] [place] [address] Hematocrit (Bld) [Volume fraction] 34.9 % Low 35.0-47.0 [facility] Comment on above: Performed By: #### L [id number] ####Clarity Specialists: MARTIN ERIC ([phone])[facility])[address] Hemoglobin (Bld) [Mass/Vol] 11.5 g/dL Low 11.7-16.0 [facility] Comment on above: Performed By: #### L [id number] ####Clarity Specialists: MARTIN ERIC ([phone])[facility] ([facility])[address] [place] [address] Lymphocytes (Bld) [#/Vol] 1.7 10*3/uL Normal 1.0-4.3 [facility] Comment on above: Performed By: #### L [id number] ####Clarity Specialists: MARTIN AMBROSEJOSE R ([phone])[facility] ([facility])[address] [place] [address] Lymphocytes/100 WBC (Bld) 12.6 % Low 20.0-40.0 [facility] Comment on above: Performed By: #### L [id number] ####Clarity Specialists: MARTIN AMBROSEJOSE R ([phone])[facility])[address] [place] [address] MCH (RBC) [Entitic mass] 28.7 pg Normal 26.0-34.0 [facility] Comment on above: Performed By: #### L [id number] ####Clarity Specialists: MARTIN AMBROSEJOSE R ([phone])[facility])[address] [place] [address] MCV (RBC) [Entitic vol] 87.1 fL Normal 80.0-98.0 [facility] Comment on above: Performed By: #### L [id number] ####Clarity Specialists: MARTIN AMBROSEJOSE R ([phone])[facility] [place] (SBHLAB)[address] Monocytes (Bld) [#/Vol] 1.5 10*3/uL High 0.0-0.8 [facility] Comment on above: Performed By: #### L [id number] ####Clarity Specialists: MARTIN HUAWILFREDO ([phone])[facility] [place] (SBHLAB)[address] Monocytes/100 WBC (Bld) 10.8 % High 2.0-10.0 S [facility] Comment on above: Performed By: #### L [id number] ####Clarity Specialists: MARTIN HUAWILFREDO ([phone])[facility] [place] (SBHLAB)[address] Neutrophils (Bld) [#/Vol] 10.3 10*3/uL High 1.8-7.0 [facility] Comment on above: Performed By: #### L [id number] ####Clarity Specialists: MARTIN HUAWILFREDO ([phone])[facility] [place] (SBHLAB)[address] Neutrophils/100 WBC (Bld) 74.6 % Normal 40.0-80.0 [facility] Comment on above: Performed By: #### L [id number] ####Clarity Specialists: MARTIN HUAWILFREDO ([phone])[facility] [place] (SBHLAB)[address] [place] [address] [place] NRBC (PER 100 WBCS) BY AUTOMATED COUNT 0.0 /100 WBCs Normal 0.0-2.0 [facility] Comment on above: Performed By: #### L [id number] ####Clarity Specialists: MARTIN AMBROSEJOSE R ([phone])[facility] [place] (SBHLAB)[address] [place] [address] [place] Platelet mean volume (Bld) [Entitic vol] 8.5 fL Normal 7.4-12.4 [facility] Comment on above: Performed By: #### L [id number] ####Clarity Specialists: MARTIN REYES ([phone])[facility] [place] (SBHLAB)[address] PLATELETS (10*3/UL) IN BLOOD AUTOMATED COUNT 271 10*3/uL Normal 140-440 [facility] Comment on above: Performed By: #### L [id number] ####Clarity Specialists: MARTIN REYES ([phone])[facility] [place] ([facility])[address] RBC (Bld) [#/Vol] 4.00 10*6/uL Normal 3.8-5.20 [facility] Comment on above: Performed By: #### L [id number] ####Clarity Specialists: MARTIN REYES ([phone])[facility] [place] ([facility])[address] WBC (Bld) [#/Vol] 13.8 10*3/uL High 3.6-10.7 [facility] Comment on above: Performed By: #### L [id number] ####Clarity Specialists: MARTIN REYES ([phone])[facility] [place] ([facility])[address] COMPREHENSIVE METABOLIC PANE Real 03-01-2023 Albumin [Mass/Vol] 3.1 g/dL Low 3.5-5.0 [facility] Comment on above: Performed By: #### L [id number] ####Clarity Specialists: MARTIN REYES ([phone])[facility] [place] ([facility])[address] ALP [Catalytic activity/Vol] 102 U/L Normal 38-126 [facility] Comment on above: Performed By: #### L AB17 ####Clarity Specialists: MARTIN REYES ([phone])[facility] [place] ([facility])[address] ALT [Catalytic activity/Vol] 16 U/L Normal 0-34 [facility] Comment on above: Performed By: #### L AB17 ####Clarity Specialists: MARTIN REYES ([phone])[facility] [place] ([facility])[address] Anion gap [Moles/Vol] 9 mmol/L Normal 3-13 [facility] Comment on above: Performed By: #### L AB17 ####Clarity Specialists: MARTIN REYES ([phone])[facility] [place] ([facility])[address] AST [Catalytic activity/Vol] 24 U/L Normal 15-46 [facility] Comment on above: Performed By: #### L AB17 ####Clarity Specialists: MARTIN REYES ([phone])[facility] [place] ([facility])[address] Bilirubin [Mass/Vol] 0.4 mg/dL Normal 0.2-1.3 [facility] Comment on above: Performed By: #### L AB17 ####Clarity Specialists: MARTIN REYES ([phone])[facility] [place] ([facility])[address] Calcium [Mass/Vol] 8.3 mg/dL Low 8.4-10.4 [facility] Comment on above: Performed By: #### L AB17 ####Clarity Specialists: MARTIN REYES ([phone])[facility] [place] ([facility])[address] Chloride [Moles/Vol] 102 mmol/L Normal 98-107 [facility] Comment on above: Performed By: #### L AB17 ####Clarity Specialists: MARTIN REYES ([phone])[facility] [place] ([facility])[address] CO2 [Moles/Vol] 26 mmol/L Normal 22-[address] [facility] Comment on above: Performed By: #### L AB17 ####Clarity Specialists: MARTIN REYES ([phone])[facility] [place] ([facility])[address] Creatinine [Mass/Vol] 0.96 mg/dL Normal 0.52-1.04 [facility] Comment on above: Performed By: #### L AB17 ####Clarity Specialists: MARTIN REYES ([phone])[email or web address]N (SBHLAB)[address] GLOMERULAR FILTRATION RATE ML/MIN/1.73 SQ M.PREDICTED 60.3 mL/min/1.73m*2 Normal >60.0 [facility] Comment on above: Result Comment: Calc ulation based on the Chronic Kidney Disease Epidemiology Collaboration (CKD-EPI) equation refit without adjustment for race Performed By: #### L AB17 ####Clarity Specialists: MARTIN REYES ([phone])[facility] [place] ([facility])[address] Glucose [Mass/Vol] 123 mg/dL High 70-100 [facility] Comment on above: Performed By: #### L AB17 ####Clarity Specialists: MARTIN REYES ([phone])[facility] [place] ([facility])[address] Potassium [Moles/Vol] 4.3 mmol/L Normal 3.5-5.1 [facility] Comment on above: Performed By: #### L AB17 ####Clarity Specialists: MARTIN REYES ([phone])[facility] [place] ([facility])[address] [place] [address] [place] Protein [Mass/Vol] 6.0 g/dL Low 6.3-8.2 [facility] Comment on above: Performed By: #### L AB17 ####Clarity Specialists: MARTIN REYES ([phone])[email or web address]]N (SBHLAB)[address] [place] [address] [place] Sodium [Moles/Vol] 137 mmol/L Normal 135-145 [facility] Comment on above: Performed By: #### L AB17 ####Clarity Specialists: MARTIN FLEMINGCER ([phone])[facility] (SBHLAB)[address] Urea nitrogen [Mass/Vol] 17 mg/dL Normal 7-17 [facility] Comment on above: Performed By: #### L AB17 ####Clarity Specialists: MARTIN ERIC ([phone])[facility] ([facility]HL[facility])[address] Comprehensive metabolic 1998 panelon 03-01-2023 Albumin [Mass/Vol] 3.1 g/dL Low 3.5 - 5.0 g/dL [facility] ALP [Catalytic activity/Vol] 102 U/L 38 - 126 U/L [facility] ALT [Catalytic activity/Vol] 16 U/L 0 - 34 U/L [facility] Anion gap [Moles/Vol] 9 mmol/L 3 - 13 mmol/L [facility] AST [Catalytic activity/Vol] 24 U/L 15 - 46 U/L [facility] Bilirubin [Mass/Vol] 0.4 mg/dL 0.2 - 1 .3 mg/dL [facility] Calcium [Mass/Vol] 8.3 mg/dL Low 8.4 - 10. 4 mg/dL [facility] Chloride [Moles/Vol] 102 mmol/L 98 - 10 7 mmol/L [facility] CO2 [Moles/Vol] 26 mmol/L 22 - 30 mmol/L [facility] Creatinine [Mass/Vol] 0.96 mg/dL 0.52 - 1.04 mg/dL [facility] GFR/1.73 sq M.predicted MDRD (S/P/Bld) [Vol rate/Area] 60.3 mL/min/{1.73_m2} - PINF [facility] Comment on above: Calculation based on the Chronic Kidney Disease Epidemiology Collaboration (CKD-EPI) equation refit without adjustment for race Glucose [Mass/Vol] 123 mg/dL High 70 - 100 mg/dL [facility] Interpretation and review of laboratory results Abnormal [facility] Potassium [Moles/Vol] 4.3 mmol/L 3.5 - 5.1 mmol/L [facility] Protein [Mass/Vol] 6.0 g/dL Low 6.3 - 8.2 g/dL [facility] Sodium [Moles/Vol] 137 mmol/L 135 - 145 mmol/L [facility] Urea nitrogen [Mass/Vol] 17 mg/dL 7 - 17 mg/dL [facility] Consulton 03-01-[address] [facility] Wound Care CONSULT Note Radha Sandoval AGE: [...] Uncontrolled type 2 diabetes mellitus with hyperglycemia ([facility]) 01/16/2020 Morbidly obese (HCC) 01/16/2020 Vitamin D deficiency 01/16/2020 Moderate episode of recurrent major depressive disorder (HCC) 06/03/2019 OAB (overactive bladder) 05/06/2021 Localized edema 10/01/2020 Insomnia 04/06/2015 Dyspnea on exertion 09/09/2021 Muscle spasms of both lower extremities 09/09/2021 Chronic renal insufficiency, stage III (moderate) ([facility]) 06/03/2019 Restless legs syndrome (RLS) 01/14/2015 [...] 12/07/2022 Performed by Avery Marshall DO at [facility] ENDOSCOPY EYE SURGERY Bilateral early [...] tablet 0 ergocalciferol (Vitamin D-2) 1.25 MG (27931 UT) capsule Take 1 capsule (1.25 mg) by mouth 1 (one) time per week. 90 capsule 1 Glucose Blood (Blood Glucose Test) strip 4 times daily. hydrOX (more content not included)... Normal [facility] Consult [facility] Geriatric Medicine Inpatient Consult Service Admission Date: 02/28/2023 Admission Status: INPATIENT Chief Complaint: I couldn't get around and they directed me to the hospital because I was peeing constantly from that UTI. Reason for Appointment Geriatrics consulted for functional decline Assessment/Plan Principal Problem: LING (acute kidney injury) (CMS/[facility]) ([facility]) Active Problems: Declining functional status Weakness [...] necessary I recommended follow up at our [facility] at [phone]. Call in 2 weeks for memory (re)testing once acute issue(s) resolve - order placed in [facility] for follow-up Other I deferred full MMSE [...] caregiver: Per my d/w patient's bedside nurse Alam on 03/01/23 early afternoon: Alma states that patient has been A&OX3 and appropriate and cooperative for her. She had no concerns. Patient slept well overnight. Awo (more content not included)... [facility] Consult This patient is not a new diabetic or new to insulin therapy and therefore does not meet our current criteria for the inpatient diabetes education service. The clinical bedside RN should provide any necessary diabetes education using the Diabetes Survival Skills Booklet available on the unit. Please consider a dietary consult if appropriate and if not already ordered. Contact [facility] to Beds pharmacist for assistance if a new glucometer or any associated supplies are needed. Thank you. Elder MUÑOZ,BSN,[facility] Consult Department of [employer] al Medicine Division of Endocrinology, Diabetes, & Metabolism Endocrinology Note Patient Name: Radha Sandoval : 1945 AGE: 77 y.o. Room/Bed: [facility] A Admission Date: 02/28/2023 Visit Date: 03/01/2023 Reason for Endocrine Consult: DM-Uncontrolled Provider/Team Requesting Consult: Dr. Finch PCP: Shiv Lopez MD Outpt Energy Advisor: No ASSESSMENT: Type II diabetes with hyperglycemia, with penitentiary insulin use Postoperative hypothyroidism PLAN: Humalog 6 [...] diagnosis. She has been having diarrhea in 9507-6025, smt severe Glimepiride- started in 2015 Trulicity [...] s (more content not included)... Normal [facility] HEMOGLOBIN A1Con 03-01-2023 Glucose [Mass/Vol] 315 mg/dL Normal [facility] Comment on above: Performed By: #### L AB90 ####Clarity Specialists: MARTIN REYES ([phone])[facility] ([facility])[address] [place] [address] HbA1c (Bld) [Mass fraction] 12.6 % High <5.7 [facility] Comment on above: Result Comment: Norm al less than 5.7% Prediabetes 5.7% to 6.4% Diabetes 6.5% or higher --HgbA1C levels may not be accurate in patients who have renal disease, received recent blood transfusions, are anemic, or who have dyshemoglobinemia. Performed By: #### L AB90 ####Clarity Specialists: MARTIN REYES ([phone])[facility])[address] [place] [address] HbA1c (Bld) [Mass fraction]o n 03-01-2023 Average glucose Estimated from glycated hemoglobin (Bld) [Mass/Vol] 315 mg/dL [facility] Interpretation and review of laboratory results Abnormal [facility] Hemoglobin A1con 03-01-2023 HbA1c (Bld) [Mass fraction] 12.6 % High NINF - 5.7 % [facility] Comment on above: Normal less than 5.7 % Prediabetes 5.7% to 6.4% Diabetes 6.5% or higher --HgbA1C levels may not be accurate in patients who have renal disease, received recent blood transfusions, are anemic, or who have dyshemoglobinemia. POCT glucose meteron 023 Glucose [Mass/Vol] 194 mg/dL High 70 - 100 mg/dL [facility] netTALK Interpretation and review of laboratory results Abnormal [facility] Performed by: [facility], [address] [place] [address] CLIA ID: [id number] [facility] Glucose [Mass/Vol] 95 mg/dL 70 - 100 mg/dL [facility] Interpretation and review of laboratory results Normal [facility] Performed by: [facility], [address] [facility] [place] [address] CLIA ID: [id number] [facility] Glucose [Mass/Vol] 153 mg/dL High 70 - 100 mg/dL [facility] Interpretation and review of laboratory results Abnormal [facility] Performed by: [facility], [address] [facility] [place] [address] CLIA ID: [id number] [facility] Glucose [Mass/Vol] 172 mg/dL High 70 - 100 mg/dL [facility] Interpretation and review of laboratory results Abnormal [facility] Performed by: [facility], [address] [facility] [place] [address] CLIA ID: [id number] [facility] PROCALCITONIN TESTon 023 PROCALCITONIN 0.05 ng/mL Normal 0.00-0.09 [facility] Comment on above: Result Comment: LISA Mejia COMMENTS: PCT <0.50 = Low risk of severe sepsis and/or septic shock. PCT >2.00 = High risk of severe sepsis and/or septic shock. Performed By: #### L [id number] ####Clarity Specialists: ASHLEY LLANOS ([phone])[facility] ([address] Procalcitonin Teston 023 Procalcitonin [Mass/Vol] 0.05 ng/mL 0.00 - 0.09 ng/mL [facility] Procalcitonin [Mass/Vol]on 0 03-01-2023 Interpretation and review of laboratory results Normal [facility] PCT <0.50 = Low risk of severe sepsis and/or septic shock. PCT >2.00 = High risk of severe sepsis and/or septic shock. [facility] Progress Noteon 03-01-2023 Progress Note Physical Therapy Facility/Department: [address] Physical Therapy Initial Evaluation NAME: Radha Sandoval : 1945 Date of Service: 03/01/2023 Discharge Recommendations: Retirement Facility, Continue to assess pending progress PT [...] diagnosis was LING (acute kidney injury) (CMS/HCC) ([facility]). Diagnoses of Pyelonephritis, Polypharmacy, Insomnia, unspecified type, and Pressure ulcer of right buttock, stage 3 ([facility]) were also pertinent to this visit. [...] Device: straight cane Transfer Assistance: Independent Active Electrical Designer: Yes Objective Observation/Palpation Posture: Good Observation: PIV [...] from lucy (more content not included)... Normal [facility] Progress Note Occupational Therapy OCCUPATIONAL THERAPY [facility] Initial Evaluation Name/MRN: Radha Sandoval ([id number]) Evaluation Date: 03/01/2023 Date of : 1945 [...] 12/07/2022 Performed by Avery Marshall DO at [facility] ENDOSCOPY EYE SURGERY Bilateral early 90' LUNG REMOVAL, PARTIAL Left ROTATOR CUFF REPAIR Left TONSILLECTOMY Admission Diagnosis: Patient Active Problem List Diagnosis Date Noted LING (acute kidney injury) ([facility]/HCC) (HCC) 02/28/2023 Acute cystitis with hematuria [...] Uncontrolled type 2 diabetes mellitus with hyperglycemia ([facility]) 01/16/2020 Morbidly obese ([facility]) 01/16/2020 Vitamin D deficiency 01/16/2020 Moderate episode of recurrent major depressive disorder ([facility]) 06/03/2019 Chronic renal insufficiency, stage III (moderate) ([facility]) 06/03/2019 Hyperlipidemia with target LDL less [...] Responsibilities: Independent Receives Help From: None Active Electrical Designer: Yes Prior Level of Function ADL Assistance: [...] Upper Ext (more content not included)... [facility] 36on 02-28-2023 36 Noted. Patient sana mendenhall notified. See previous TE if needed. [facility] 36 Called and spoke wit h patient. [...] states that she will be going to [facility]. [place] [id number] S: Christine from [employer] [phone] spoke with [facility] nurse regarding critical lab results B: Glucose A: Blood was drawn yesterday. Glucose was 524, resulting this morning. Verified with repeat analysis. The lab work was ordered by Katia Granados CNP. R: Since office is open, called back line and spoke with Katia Schulz's nurse. Result given. No further instructions to the [facility] nurse. Reason for Disposition Lab or radiology calling with CRITICAL test results Protocols used: PCP Call - No Ynllyw-UAYAG-RICHI [facility] CARECOORDon 02-28-2023 [facility] Next Site of Care Admission Date: 02/28/2023 11:30 AM Patient Name: RADHA SANDOVAL [facility] 1E MED [facility] [id number] Date of : 1945 - Placement Information - Referral Type:Halfway/SNF - New Referral ID:[facility]-[id number] Provider Name:[facility] Unit [facility] Address 1:[address] [place] [address] Address 2: City:[place] Selection Factors:Patient/Family Choice State:[place] Normal [facility] CBC W Auto Differential pane l (Bld)Ordered By: Clayton Lozano on 02-28-2023 Basophils (Bld) [#/Vol] 0.1 10*3/uL 0.0 - 0.2 10*3/uL [facility] Basophils/100 WBC (Bld) 0.5 % 0.0 - 2.0 % [facility] netTALK Eosinophils (Bld) [#/Vol] 0.1 10*3/uL 0.0 - 0.5 10*3/uL [facility] Eosinophils/100 WBC (Bld) 0.9 % Low 1.0 - 6.0 % [facility] Erythrocyte distribution width (RBC) [Ratio] 13.8 % 11.5 - 14.5 % [facility] Hematocrit (Bld) [Volume fraction] 36.0 % 35.0 - 47.0 % [facility] Hemoglobin (Bld) [Mass/Vol] 11.5 g/dL Low 11.7 - 16.0 g/dL [facility] Interpretation and review of laboratory results Abnormal [facility] netTALK Lymphocytes (Bld) [#/Vol] 0.8 10*3/uL Low 1.0 - 4.3 10*3/uL [facility] Lymphocytes/100 WBC (Bld) 6.4 % Low 20.0 - 40.0 % [facility] MCH (RBC) [Entitic mass] 28.0 pg 26.0 - 34.0 pg [facility] MCHC (RBC) [Mass/Vol] 32.0 % 32.0 - 36.0 % [facility] MCV (RBC) [Entitic vol] 87.5 fL 80.0 - 98.0 fL [facility] Monocytes (Bld) [#/Vol] 1.1 10*3/uL High 0.0 - 0.8 10*3/uL [facility] Monocytes/100 WBC (Bld) 9.0 % 2.0 - 10.0 % [facility] Neutrophils (Bld) [#/Vol] 10.2 10*3/uL High 1.8 - 7.0 10*3/uL [facility] Neutrophils/100 WBC (Bld) 83.2 % High 40.0 - 80.0 % [facility] Nucleated RBC/100 WBC (Bld) [Ratio] 0.0 % [facility] Platelet mean volume (Bld) [Entitic vol] 8.6 fL 7.4 - 12.4 fL [facility] Platelets (Bld) [#/Vol] 278 10*3/uL 140 - 440 10*3/uL [facility] RBC (Bld) [#/Vol] 4.11 10*6/uL 3.8 - 5.20 10*6/uL [facility] WBC (Bld) [#/Vol] 12.3 10*3/uL High 3.6 - 10.7 10*3/uL [facility] CBC WITH AUTO DIFFERENTIALon 02-28-2023 Basophils (Bld) [#/Vol] 0.1 10*3/uL Normal 0.0-0.2 [facility] Comment on above: Performed By: #### L [id number] ####Clarity Specialists: MARTIN REYES ([phone])[facility] ([facility])[address] [place] [address] Basophils/100 WBC (Bld) 0.5 % Normal 0.0-2.0 S [facility] Comment on above: Performed By: #### L [id number] ####Clarity Specialists: MARTINDWAINE REYES ([phone])[facility] [place] (SBHLAB)[address] Eosinophils (Bld) [#/Vol] 0.1 10*3/uL Normal 0.0-0.5 [facility] Comment on above: Performed By: #### L [id number] ####Clarity Specialists: MARTIN ERIC ([phone])[facility] [place] (SBHLAB)[address] Eosinophils/100 WBC (Bld) 0.9 % Low 1.0-6.0 [facility] Comment on above: Performed By: #### L [id number] ####Clarity Specialists: MARTINDWAINE REYES ([phone])[facility] [place] (SBHLAB)[address] [place] [address] Erythrocyte distribution width (RBC) [Ratio] 13.8 % Normal 11.5-14.5 [facility] Comment on above: Performed By: #### L [id number] ####Clarity Specialists: MARTIN ERIC ([phone])[email or web address]]N (SBAB)[address] ERYTHROCYTE MEAN CORPUSCULAR HEMOGLOBIN CONCENTRATION (G/DL) BY AUTOMATED 32.0 % Normal 32.0-36.0 [facility] Comment on above: Performed By: #### L [id number] ####Clarity Specialists: MARTIN AMBROSEJOSE R ([phone])[facility] [place] (SBHLAB)[address] Hematocrit (Bld) [Volume fraction] 36.0 % Normal 35.0-47.0 [facility] Comment on above: Performed By: #### L [id number] ####Clarity Specialists: MARTIN HUAWILFREDO ([phone])[facility] [place] (SBHLAB)[address] Hemoglobin (Bld) [Mass/Vol] 11.5 g/dL Low 11.7-16.0 [facility] Comment on above: Performed By: #### L [id number] ####Clarity Specialists: MARTIN REYES ([phone])[facility] [place] (SBHLAB)[address] Lymphocytes (Bld) [#/Vol] 0.8 10*3/uL Low 1.0-4.3 [facility] Comment on above: Performed By: #### L [id number] ####Clarity Specialists: MARTIN REYES ([phone])[facility] [place] (SBHLAB)[address] Lymphocytes/100 WBC (Bld) 6.4 % Low 20.0-40.0 [facility] Comment on above: Performed By: #### L [id number] ####Clarity Specialists: MARTIN REYES ([phone])[facility] [[email or web address]]N (SBHLAB)[address] [place] [address] MCH (RBC) [Entitic mass] 28.0 pg Normal 26.0-34.0 [facility] Comment on above: Performed By: #### L [id number] ####Clarity Specialists: MARTIN REYES ([phone])[facility] [place] (SBHLAB)[address] [place] [address] MCV (RBC) [Entitic vol] 87.5 fL Normal 80.0-98.0 S [facility] Comment on above: Performed By: #### L [id number] ####Clarity Specialists: MARTIN REYES ([phone])[facility] [place] (SBHLAB)[address] [place] [address] Monocytes (Bld) [#/Vol] 1.1 10*3/uL High 0.0-0.8 [facility] Comment on above: Performed By: #### L [id number] ####Clarity Specialists: MARTIN REYES ([phone])[facility] [place] (SBHLAB)[address] Monocytes/100 WBC (Bld) 9.0 % Normal 2.0-10.0 S [facility] Comment on above: Performed By: #### L [id number] ####Clarity Specialists: MARTIN REYES ([phone])[facility] [place] (SBHLAB)[address] Neutrophils (Bld) [#/Vol] 10.2 10*3/uL High 1.8-7.0 [facility] Comment on above: Performed By: #### L [id number] ####Clarity Specialists: MARTIN REYES ([phone])[facility] [place] (SBHLAB)[address] Neutrophils/100 WBC (Bld) 83.2 % High 40.0-80.0 [facility] Comment on above: Performed By: #### L [id number] ####Clarity Specialists: MARTIN REYSE ([phone])[facility] [place] (SBHLAB)[address] NRBC (PER 100 WBCS) BY AUTOMATED COUNT 0.0 /100 WBCs Normal 0.0-2.0 [facility] Comment on above: Performed By: #### L [id number] ####Clarity Specialists: MARTIN REYES ([phone])[facility] [place] (SBHLAB)[address] Platelet mean volume (Bld) [Entitic vol] 8.6 fL Normal 7.4-12.4 [facility] Comment on above: Performed By: #### L [id number] ####Clarity Specialists: MARTIN REYES ([phone])[facility] [place] (SBHLAB)[address] [place] [address] [place] PLATELETS (10*3/UL) IN BLOOD AUTOMATED COUNT 278 10*3/uL Normal 140-440 [facility] Comment on above: Performed By: #### L [id number] ####Clarity Specialists: MARTIN REYES ([phone])[facility] [place] (SBHLAB)[address] [place] [address] [place] RBC (Bld) [#/Vol] 4.11 10*6/uL Normal 3.8-5.20 [facility] Comment on above: Performed By: #### L [id number] ####Clarity Specialists: MARTIN REYES ([phone])[facility] (SBHLAB)[address] WBC (Bld) [#/Vol] 12.3 10*3/uL High 3.6-10.7 [facility] Comment on above: Performed By: #### L [id number] ####Clarity Specialists: MARTIN REYES ([phone])[facility] ([facility])[address] COMPLETE URINALYSISon 2022 BACTERIA (#/HPF) IN URINE Moderate Abnormal Negative [facility] Comment on above: Performed By: #### L [id number] ####Clarity Specialists: MARTIN REYES ([phone])[facility] ([facility])[address] [place] [address] BILIRUBIN, TOTAL PRESENCE IN URINE Negative Normal Negative [facility] Comment on above: Performed By: #### L [id number] ####Clarity Specialists: MARTIN REYES ([phone])[facility] ([facility])[address] [place] [address] Clarity (U) Turbid Abnormal Clear [facility] Comment on above: Performed By: #### L [id number] ####Clarity Specialists: MARTIN REYES ([phone])[facility] ([facility])[address] [place] [address] Color (U) Light Yellow Normal Lt. Yellow [facility] Comment on above: Performed By: #### L [id number] ####Clarity Specialists: MARTIN REYES ([phone])[facility] (SBAB)[address] [place] [address] GLUCOSE (MG/DL) IN URINE >1,000 Abnormal Normal (<70) [facility] Comment on above: Performed By: #### L [id number] ####Clarity Specialists: MARTIN AMBROSEJOSE R ([phone])[facility] [place] (SBHLAB)[address] GRANULAR CASTS (#/LPF) IN URINE 0-2 Abnormal Negative [facility] Comment on above: Performed By: #### L [id number] ####Clarity Specialists: MARTIN AMBROSEJOSE R ([phone])[facility] [place] (SBHLAB)[address] HEMOGLOBIN PRESENCE IN URINE Negative Normal Negative [facility] Comment on above: Performed By: #### L [id number] ####Clarity Specialists: MARTIN HUAWILFREDO ([phone])[facility] [place] (SBHLAB)[address] HYALINE CASTS (#/LPF) IN URINE SEDIMENT BY MICROSCOPY 3-5 Abnormal Negative [facility] Comment on above: Performed By: #### L [id number] ####Clarity Specialists: MARTIN AMBROSEJOSE R ([phone])[facility] [place] (SBHLAB)[address] Ketones Ql (U) Negative Normal Negative [facility] Comment on above: Performed By: #### L [id number] ####Clarity Specialists: MARTIN AMBROSEJOSE R ([phone])[facility] [place] (SBHLAB)[address] LEUKOCYTE ESTERASE PRESENCE IN URINE BY TEST STRIP 250 Sandeep/uL Abnormal Negative [facility] Comment on above: Performed By: #### L [id number] ####Clarity Specialists: MARTIN HUAWILFREDO ([phone])[facility] [place] (SBHLAB)[address] [place] [address] [place] MUCUS (#/LPF) IN URINE SEDIMENT Few Normal Negative [facility] Comment on above: Performed By: #### L [id number] ####Clarity Specialists: MARTIN AMBROSEJOSE R ([phone])[facility] [place] (SBHLAB)[address] [place] [address] [place] NITRITE PRESENCE IN URINE Positive Abnormal Negative [facility] Comment on above: Performed By: #### L [id number] ####Clarity Specialists: MARTIN REYES ([phone])[facility] [place] (SBHLAB)[address] pH (U) 5.0 [pH] Normal 5.0-8.0 [facility] Comment on above: Performed By: #### L [id number] ####Clarity Specialists: MARTIN REYES ([phone])[facility] [place] (SBHLAB)[address] Protein (U) [Mass/Vol] 20 mg/dL Abnormal Negative [facility] Comment on above: Performed By: #### L [id number] ####Clarity Specialists: MARTIN REYES ([phone])[facility] ([facility])[address] [place] [address] RBC (#/HPF) IN URINE SEDIMENT 0-2 Normal 0-2 [facility] Comment on above: Performed By: #### L [id number] ####Clarity Specialists: MARTIN REYES ([phone])[facility] [place] ([facility])[address] [place] [address] Specific gravity (U) [Rel density] 1.020 Normal 1.005-1.030 [facility] Comment on above: Performed By: #### L [id number] ####Clarity Specialists: MARTIN REYES ([phone])[facility])[address] SQUAMOUS EPITHELIAL CELLS (#/HPF) IN URINE SEDIMENT 3-5 Normal 3-5 [facility] Comment on above: Performed By: #### L [id number] ####Clarity Specialists: MARTIN REYES ([phone])[facility] ([facility])[address] [place] [address] UROBILINOGEN (MG/DL) IN URINE Normal Normal Normal (0-1) [facility] Comment on above: Performed By: #### L [id number] ####Clarity Specialists: MARTIN REYES ([phone])[facility] [place] (SBHLAB)[address] WBC (LEUKOCYTE) (#/HPF) IN URINE SEDIMENT 11-25 Abnormal 0-5 [facility] Comment on above: Performed By: #### L [id number] ####Clarity Specialists: MARTIN REYES ([phone])[facility] [place] (SBHLAB)[address] WBC (LEUKOCYTE) CLUMPS (#/HPF) IN URINE SEDIMENT Occasional Abnormal Negative [facility] Comment on above: Performed By: #### L [id number] ####Clarity Specialists: MARTIN REYES ([phone])[facility] [place] (SBHL[facility])[address] YEAST (#/HPF) IN URINE Few Abnormal Negative [facility] Comment on above: Performed By: #### L [id number] ####Clarity Specialists: MARTIN REYES ([phone])[facility] [place] (SBHLAB)[address] COMPREHENSIVE METABOLIC PANE Real 02-28-2023 Albumin [Mass/Vol] 3.7 g/dL Normal 3.5-5.0 [facility] Comment on above: Performed By: #### L [id number] ####Clarity Specialists: MARTIN REYES ([phone])[facility] [place] (SB[facility])[address] ALP [Catalytic activity/Vol] 119 U/L Normal 38-126 [facility] Comment on above: Performed By: #### L AB17 ####Clarity Specialists: MARTIN REYES ([phone])[facility] [place] (SB[facility])[address] ALT [Catalytic activity/Vol] 18 U/L Normal 0-34 [facility] Comment on above: Performed By: #### L AB17 ####Clarity Specialists: MARTIN REYES ([phone])[facility] [place] (SBHLAB)[address] Anion gap [Moles/Vol] 8 mmol/L Normal 3-13 [facility] Comment on above: Performed By: #### L [id number] ####Clarity Specialists: MARTIN REYES ([phone])[facility] [place] (SB[facility])[address] AST [Catalytic activity/Vol] 24 U/L Normal 15-46 [facility] Comment on above: Performed By: #### L AB17 ####Clarity Specialists: MARTIN REYES ([phone])[facility] [place] (SB[facility])[address] Bilirubin [Mass/Vol] 0.5 mg/dL Normal 0.2-1.3 [facility] Comment on above: Performed By: #### L AB17 ####Clarity Specialists: MARTIN REYES ([phone])[facility] [place] (SB[facility])[address] Calcium [Mass/Vol] 8.4 mg/dL Normal 8.4-10.4 [facility] Comment on above: Performed By: #### L AB17 ####Clarity Specialists: MARTIN REYES ([phone])[facility] [place] (SB[facility])[address] Chloride [Moles/Vol] 96 mmol/L Low 98-107 [facility] Comment on above: Performed By: #### L AB17 ####Clarity Specialists: MARTIN REYES ([phone])[facility] [place] (SBHLAB)[address] [place] [address] [place] CO2 [Moles/Vol] 26 mmol/L Normal 22-30 [facility] Comment on above: Performed By: #### L AB17 ####Clarity Specialists: MARTIN REYES ([phone])[facility] [place] (SBHLAB)[address] [place] [address] [place] Creatinine [Mass/Vol] 1.22 mg/dL High 0.52-1.04 [facility] Comment on above: Performed By: #### L AB17 ####Clarity Specialists: MARTIN REYES ([phone])[facility]ITAL[facility] [place] (SBHLAB)[address] GLOMERULAR FILTRATION RATE ML/MIN/1.73 SQ M.PREDICTED 45.2 mL/min/1.73m*2 Low >60.0 [facility] Comment on above: Result Comment: Calc ulation based on the Chronic Kidney Disease Epidemiology Collaboration (CKD-EPI) equation refit without adjustment for race Performed By: #### L AB17 ####Clarity Specialists: MARTIN REYES ([phone])[facility] [place] ([facility])[address] Glucose [Mass/Vol] 483 mg/dL Critically high 70-100 S [facility] Comment on above: Performed By: #### L AB17 ####Clarity Specialists: MARTIN REYES ([phone])[facility] [place] (SBHLAB)[address] [place] [address] [place] Potassium [Moles/Vol] 4.0 mmol/L Normal 3.5-5.1 [facility] Comment on above: Performed By: #### L AB17 ####Clarity Specialists: MARTIN REYES ([phone])[facility] [place] (SBHL[facility])[address] [place] [address] [place] Protein [Mass/Vol] 6.6 g/dL Normal 6.3-8.2 [facility] Comment on above: Performed By: #### L AB17 ####Clarity Specialists: MARTIN REYES ([phone])[facility] [place] (SB[facility])[address] [place] [address] [place] Sodium [Moles/Vol] 130 mmol/L Low 135-145 [facility] Comment on above: Performed By: #### L AB17 ####Clarity Specialists: MARTIN REYES ([phone])[facility] [[email or web address]]N (SBHLAB)[address] Urea nitrogen [Mass/Vol] 20 mg/dL High 7-17 [facility] Comment on above: Performed By: #### L AB17 ####Clarity Specialists: MARTIN REYES ([phone])[facility] (SBHLAB)[address] ABDOMEN PELVIS WO IV CONT [...] pain and burning with urination Normal [facility] CT Abdomen WO contraston Colonic diverticulosis without evidence of acute diverticulitis. Bilateral renal cysts, the largest cyst is on the left measuring up to 4.8 cm. Report Dictated on Electronically Signed By: Jb Ahmadi DO Electronically Signed Date/Time: 02/28/2023 1:44 PM EDT [facility] 1945 [id number] Exam Date/Time: 02/28/2023 13:07 Procedure: CT ABDOMEN [...] the aorta and iliac arteries are noted. [facility] Jb Ahmadi DO - 02/28/2023 Patient Name: RAD[facility]OVAL : 1945 [id number] Exam Date/Time: 02/28/2023 13:07 Procedure: CT ABDOMEN [...] Electronically Signed Date/Time: 02/28/2023 1:44 PM EDT [facility] Radiology Study observation (narrative) [facility] alth CT Abdomen WO contrastOrdere d By: Jb Ahmadi on 02-28-2023 [facility] netTALK Work Phone: Comprehensive metabolic 1998 panelOrdered By: Azucena Li on 02-28-2023 Albumin [Mass/Vol] 3.7 g/dL 3.5 - 5.0 g/dL [facility] ALP [Catalytic activity/Vol] 119 U/L 38 - 126 U/L [facility] ALT [Catalytic activity/Vol] 18 U/L 0 - 34 U/L [facility] Anion gap [Moles/Vol] 8 mmol/L 3 - 13 mmol/L [facility] AST [Catalytic activity/Vol] 24 U/L 15 - 46 U/L [facility] Bilirubin [Mass/Vol] 0.5 mg/dL 0.2 - 1 .3 mg/dL [facility] Calcium [Mass/Vol] 8.4 mg/dL 8.4 - 10. 4 mg/dL [facility] Chloride [Moles/Vol] 96 mmol/L Low 98 - 10 7 mmol/L [facility] CO2 [Moles/Vol] 26 mmol/L 22 - 30 mmol/L [facility] Creatinine [Mass/Vol] 1.22 mg/dL High 0.52 - 1.04 mg/dL [facility] GFR/1.73 sq M.predicted MDRD (S/P/Bld) [Vol rate/Area] 45.2 mL/min/{1.73_m2} Low - PINF [facility] Comment on above: Calculation based on the Chronic Kidney Disease Epidemiology Collaboration (CKD-EPI) equation refit without adjustment for race Glucose [Mass/Vol] 483 mg/dL Critically high 70 - 1 00 mg/dL [facility] Interpretation and review of laboratory results Abnormal [facility] Potassium [Moles/Vol] 4.0 mmol/L 3.5 - 5.1 mmol/L [facility] Protein [Mass/Vol] 6.6 g/dL 6.3 - 8.2 g/dL [facility] Sodium [Moles/Vol] 130 mmol/L Low 135 - 145 mmol/L [facility] Urea nitrogen [Mass/Vol] 20 mg/dL High 7 - 17 mg/dL [facility] ED Nursing Noteon 02-28-2023 ED Nursing Note Pt presents for admission per her PCP. Was sent to get kidneys evaluated per pt. Pt endorses lower back pain and burning and pain with urination. Was recently admitted. Normal [facility] ED Provider Noteon 3 ED Provider Note [facility] 1E MED SURG EMERGENCY DEPARTMENT [...] 12/07/2022 Performed by Avery Marshall DO at [facility] ENDOSCOPY EYE SURGERY Bilateral early [...] shoulder pain ergocalciferol (Vitamin D-2) 1.25 MG (41765 UT) capsule Take 1 capsule (1.25 mg) [...] GHANSHYAM Clark (more content not included)... Normal [facility] POCT glucose meteron 023 Glucose [Mass/Vol] 245 mg/dL High 70 - 100 mg/dL [facility] Interpretation and review of laboratory results Abnormal [facility]formed by: [facility], [address] [place] [id number] CLIA ID: [id number] [facility] Glucose [Mass/Vol] 197 mg/dL High 70 - 100 mg/dL [facility] Interpretation and review of laboratory results Abnormal [facility] Performed by: [facility], [address] [place] [id number] CLIA ID: [id number] [facility] URINE CULTUREon 02-28-2023 Bacteria identified Cx Nom [...] Non-susceptible NO = No Interpretation ] Normal [facility] Comment on above: Performed By: #### L [id number] ####Clarity Specialists: ASHLEY LLANOS ([phone])[facility] ([facility])[address] [place] [address] Urinalysis complete panel (U )on 02-28-2023 Bacteria LM.HPF (Urine sed) [#/Area] Moderate Abnormal Negative /HPF [facility] Bilirubin Ql (U) Negative Negative mg/dL [facility] Clarity (U) Turbid Abnormal Clear [facility] Color (U) Light Yellow Lt. Yellow [facility] Epithelial cells.squamous LM.HPF (Urine sed) [#/Area] 3-5 [facility] Glucose Ql (U) >1,000 Abnormal Normal (<70) mg/dL [facility] Granular casts LM.HPF (Urine sed) [#/Area] 0-2 Abnormal Negative /LPF [facility] Hemoglobin Ql (U) Negative Negative mg/dL [facility] Hyaline casts Auto (Urine sed) [#/Area] 3-5 Abnormal Negative /LPF [facility] Interpretation and review of laboratory results Abnormal [facility] Ketones (U) [Mass/Vol] Negative Negat katherine mg/dL [facility] Leukocyte clumps LM.HPF (Urine sed) [#/Area] Occasional Abnormal Negative /HPF [facility] Leukocyte esterase Test strip Ql (U) 250 Abnormal Negative Sandeep/uL [facility] Mucus LM.HPF (Urine sed) [#/Area] Few Negative /LPF [facility] Nitrite Ql (U) Positive Abnormal Negative [facility] th pH (U) 5.0 [pH] 5.0 - 8.0 pH [facility] Protein (U) [Mass/Vol] 20 mg/dL Abnormal Negative [facility] RBC LM.HPF (Urine sed) [#/Area] 0-2 [facility] Specific gravity (U) [Rel density] 1.020 1.005 - 1.030 [facility] Urobilinogen (U) [Mass/Vol] Normal Normal (0-1) mg/dL [facility] WBC LM.HPF (Urine sed) [#/Area] 11-25 Abnormal [facility] Yeast.budding LM.HPF (Urine sed) [#/Area] Few Abnormal Negative /HPF [facility] 36on 02-27-2023 36 Rx sent Normal [facility] Glucose (Bld) [Mass/Vol]on 0 02-27-2023 Glucose Blood, POC 494 mg/dL [facility] Interpretation and review of laboratory results Abnormal [facility] Office Visiton 02-27-2023 Follow-up visit [id number] Radha Sandoval 1945 F Date Provider Department Center 02/27/2023 [id number] DIA [facility] Family History Problem Relation Age of Onset Mental illness Mother Depression Mother Heart disease Father High Blood Pressure Father Asthma Father Hypertension Father Diabetes Brother Family Status - Relation Status Age at Mother Father Brother Level of Service:91853 [facility] OFFICE/OUTPATIENT ESTABLISHED MOD MDM 30-39 MIN Reason for Visit and Comments: Blood Sugar Problem [509702] Knee Pain [836843] Diarrhea [35] - Back Pain [12] Normal [facility] Progress Noteon 02-27-2023 Progress Note No fever or chills, abdomen soft. Unknown etiology. Will check CBC and CMP. Consider stool culture if symptoms continue Normal [facility] Progress Note We will check CMP today Normal [facility] Progress Note UA positive nitrites and leuks moderate blood, will start antibiotic therapy sent for culture Normal [facility] Progress Note Controlled. Continue amlodipine 10 mg daily and lisinopril 40 mg daily Normal [facility] Progress Note Will check TSH today due to recent fatigue Normal [facility] Progress Note Patient has not followed up with wound center upon visualization today wound unchanged, advised to keep area as clean as possible with frequent changes of incontinence pads Normal [facility] Progress Note Uncontrolled. Patien t having difficulties with compliance. Continue insulin regimen. Possible increased glucose due to urinary tract infection we will treat Normal [facility] Progress Note 02/27/2023 Radha Sandoval (: [...] her blood sugar today, noted In office [id number] testing 494. Urination Increased frequency, dysuria intermittently. [...] out soon. Has Maximino (son) work in [employer]. He may be able to help her [...] Lopez MD ergocalciferol (Vitamin D-2) 1.25 MG (76074 UT) capsule Take 1 capsule (1.25 mg) [...] CNP potassium chlor (more content not included)... Normal [facility] Progress Note Please see if she rodriguez s gone to ER. Call and encourage her to go if she hasn't yet. Normal [facility] Progress Note Patient was identifi ed by name and Date of . POCT glucose at 494-provider notified. Normal [facility] Urinalysis macro (dipstick) panel (U)on 02-27-2023 Bilirubin, UA Moderate [facility] Blood, UA Small [facility] Glucose, UA >1,000 [facility] Interpretation and review of laboratory results Abnormal [facility] Ketones, UA Trace [facility] Leukocytes, UA Moderate [facility] th Nitrite, UA Positive [facility] pH, UA 6.0 [facility] Protein, UA Trace [facility] Spec Grav, UA 1.010 [facility] Urobilinogen, UA 0.2 [facility] 36on 02-24-2023 36 S: Patient spoke rené h [facility] nurse regarding: Patient needs refill on Novolog. She is out of medication. B: Onset of symptoms/concern: today A: Pt states she needs refill of her Novolog pen, she is out. R: Pt is aware of message to provider for refill. Allergies and pharmacy verified. scallop binder paged. Per YAZMIN Gracia Novolog Flexpen 16 units QID, 30 days, 0 refills. Called to [facility] pharmacy, order pended on chart. Reason for Disposition [1] Prescription refill request for ESSENTIAL medicine (i.e., likelihood of harm to patient if not taken) AND [2] triager unable to refill per department policy Protocols used: Medication Refill and [facility]al [id number] Patient is out of medication. [...] prior to picking up the medication: Yes [place] [address] Noted. Agree with disposition. [place] [address] Sent a secure chat edie [employer] she is working on the [employer]. [facility] 36 S: Patient called [facility] clinical access center with complaint of elevated blood sugar [...] diabetes) Protocols used: Diabetes - High Blood Iosyy-QLOYE-RDCHI [facility] 36on 02-23-2023 36 faxed [place] [address] Not quite sure what that was all about but I guess I did which she told me to do instructions were kind of difficult to understand [place] [address] Re-printing and plac ing on your desk, need to resign next to original signature with the date and then initial next to Faby with the date. [place] [address] Faxed on 02/17/23 [facility] 36 S: Patient spoke wit lenore [facility] nurse regarding High Blood Sugar number [...] seen Protocols used: Diabetes - High Blood Gmnln-NQZQX-NO [facility] 36 Name of caller: Paula Contact phone number: [phone] Relationship to Patient: [facility] Diabetic Provider: Dr. Lopez Practice: [place] [facility] Chief Complaint/Reason for Call: Paula from [facility] Diabetic states that they did receive Rx for Freestyle Evin, however it was not accepted due to the correction on the sign date. Paula is requesting that we please resend the Rx, have Provider resign it, and have the Drs initial next to the date as well. Rx can be sent to #[phone]. Please advise. Best time of day caller can be reached: Any Patient advised that office/PCP has 24-48 business hours to return their call: No [facility] 36on 02-17-2023 36 Noted. Fax put in burt x to go out [facility] 36 Name of caller: Colette noel Contact phone number: [phone] Relationship to Patient: [facility] Provider: Dr. Lopez Practice: [place] Chief Complaint/Reason for Call: Caller wanted to follow up regarding request for pt diabetic continuous glucose meter that was faxed on 02.02.2023. Caller stated they received the Rx but the Rx was incomplete. Caller would like to ask office to re write with doctors initial and fax again to: [phone]. Please advise. Thank you. Best time of day caller can be reached: Any Patient advised that office/PCP has 24-48 business hours to return their call: Yes [facility] PATINSon 02-15-2023 PATINS Return in [address] Magallanes If you have any questions or concerns, please call our wound center at [phone] or [phone]. Offloading Try to avoid pressure and sheering [...] diet tolerates, to help improve healing. [facility] 36on 02-14-2023 36 Notified. [facility] 36 Rx sent [place] [address] Spoke with patient s he found the bottle and it is the baclofen [place] [address] The only medications on her list and on her history it would have been used for cramps in her legs would have been her Mirapex and that 1 was just refilled in December for baclofen which is an actual muscle relaxer and that was refilled in December other than those I do not know what she would be talking about [place] [address] S: Patient spoke rené grover [facility] nurse regarding out of medication for [...] policy Protocols used: Medication Refill and Renewal [id number] [facility] Office Visiton 02-07-2023 Follow-up visit [id number] Radha Sandoval 1945 F Date Provider Department Center 02/07/2023 [id number] DIA [facility] Family History Problem Relation Age of Onset Mental illness Mother Depression Mother Heart disease Father High Blood Pressure Father Asthma Father Hypertension Father Diabetes Brother Family Status - Relation Status Age at Mother Father Brother Level of Service:88036 [facility] OFFICE/OUTPATIENT ESTABLISHED LOW MDM 20-29 MIN Reason for Visit and Comments: Sore [558231] - On buttocks-getting worse Normal [facility] Progress Noteon 02-07-2023 Progress Note Chronic. Refill mobic. Normal [facility] Progress Note Avoid pressure to ar ea, avoid friction, keep area as dry as possible. Refer to wound clinic. Normal [facility] Progress Note 02/07/2023 Radha Snadoval (: 1945) is a 77 y.o. female , Established patient, here for evaluation of the following chief complaint(s): Sore (On buttocks-getting worse) ASSESSMENT/PLAN: 1. Wound of right buttock, subsequent encounter Assessment & Plan: Avoid pressure to area, avoid friction, keep area as dry as possible. Refer to wound clinic. Orders: - [facility] 2. Chronic left shoulder [...] (10 mg) by mouth daily. 12/08/22 Katia Bridenthal, MULTIPLE PRESSURE RIVETER OPERATOR - ROLL SETTER baclofen (Lioresal) 10 MG tablet Take 1 tablet (10 mg) by mouth daily. 01/13/23 Katia Bridenthal, MULTIPLE PRESSURE RIVETER OPERATOR - ROLL SETTER ergocalciferol (Vitamin D-2) 1.25 MG (24858 UT) capsule Take 1 capsule (1.25 mg) [...] used to authenticate this note. Katia Granados, MULTIPLE PRESSURE RIVETER OPERATOR - JORGE 02/07/2023 12:53 PM [facility] Progress Note Patient was identifi ed by name and Date of . PHARMACY VERIFIED WITH PATIENT[facility] [place]. [facility] 36on 02-06-2023 36 S: Pt calling [facility] c/o sore on her buttocks. B: This [...] splenectomy, organ transplant, chronic steroids) Protocols used: [id number] Normal [facility] Basic metabolic 1998 panelon 12-07-2022 Anion gap [Moles/Vol] 4 mmol/L 3 - 13 mmol/L [facility] Calcium [Mass/Vol] 7.2 mg/dL Low 8.4 - 10. 4 mg/dL [facility] Chloride [Moles/Vol] 110 mmol/L High 98 - 10 7 mmol/L [facility] CO2 [Moles/Vol] 24 mmol/L 22 - 30 mmol/L [facility] Creatinine [Mass/Vol] 0.63 mg/dL 0.52 - 1.04 mg/dL [facility] GFR/1.73 sq M.predicted MDRD (S/P/Bld) [Vol rate/Area] - PINF [facility] Comment on above: Calculation based on the Chronic Kidney Disease Epidemiology Collaboration (CKD-EPI) equation refit without adjustment for race Glucose [Mass/Vol] 182 mg/dL High 70 - 100 mg/dL [facility] Interpretation and review of laboratory results Abnormal [facility] Potassium [Moles/Vol] 3.3 mmol/L Low 3.5 - 5.1 mmol/L [facility] Sodium [Moles/Vol] 137 mmol/L 135 - 145 mmol/L [facility] Urea nitrogen [Mass/Vol] 14 mg/dL 7 - 17 mg/dL [facility] CBC panel Auto (Bld)Ordered By: Wendy Bruce on 12-07-2022 Erythrocyte distribution width (RBC) [Ratio] 13.8 % 11.5 - 14.5 % [facility] Hematocrit (Bld) [Volume fraction] 33.0 % Low 35.0 - 47.0 % [facility] Hemoglobin (Bld) [Mass/Vol] 10.6 g/dL Low 11.7 - 16.0 g/dL [facility] Interpretation and review of laboratory results Abnormal [facility] MCH (RBC) [Entitic mass] 29.3 pg 26.0 - 34.0 pg [facility] MCHC (RBC) [Mass/Vol] 32.2 % 32.0 - 36.0 % [facility] MCV (RBC) [Entitic vol] 90.8 fL 80.0 - 98.0 fL [facility] Platelet mean volume (Bld) [Entitic vol] 8.1 fL 7.4 - 12.4 fL [facility] Platelets (Bld) [#/Vol] 230 10*3/uL 140 - 440 10*3/uL [facility] RBC (Bld) [#/Vol] 3.63 10*6/uL Low 3.8 - 5.20 10*6/uL [facility] WBC (Bld) [#/Vol] 10.7 10*3/uL 3.6 - 10.7 10*3/uL [facility] Comprehensive metabolic 1998 panelon 12-07-2022 Albumin [Mass/Vol] 3.4 g/dL Low 3.5 - 5.0 g/dL [facility] ALP [Catalytic activity/Vol] 96 U/L 38 - 126 U/L [facility] ALT [Catalytic activity/Vol] 15 U/L 0 - 34 U/L [facility] Anion gap [Moles/Vol] 4 mmol/L 3 - 13 mmol/L [facility] AST [Catalytic activity/Vol] 40 U/L 15 - 46 U/L [facility] Bilirubin [Mass/Vol] 0.5 mg/dL 0.2 - 1 .3 mg/dL [facility] Calcium [Mass/Vol] 7.5 mg/dL Low 8.4 - 10. 4 mg/dL [facility] Chloride [Moles/Vol] 105 mmol/L 98 - 10 7 mmol/L [facility] CO2 [Moles/Vol] 27 mmol/L 22 - 30 mmol/L [facility] Creatinine [Mass/Vol] 0.76 mg/dL 0.52 - 1.04 mg/dL [facility] GFR/1.73 sq M.predicted MDRD (S/P/Bld) [Vol rate/Area] 79.8 mL/min/{1.73_m2} - PINF [facility] Comment on above: Calculation based on the Chronic Kidney Disease Epidemiology Collaboration (CKD-EPI) equation refit without adjustment for race Glucose [Mass/Vol] 188 mg/dL High 70 - 100 mg/dL [facility] Interpretation and review of laboratory results Abnormal [facility] Potassium [Moles/Vol] 3.4 mmol/L Low 3.5 - 5.1 mmol/L [facility] Protein [Mass/Vol] 6.2 g/dL Low 6.3 - 8.2 g/dL [facility] Sodium [Moles/Vol] 136 mmol/L 135 - 145 mmol/L [facility] Urea nitrogen [Mass/Vol] 10 mg/dL 7 - 17 mg/dL [facility] Hemoglobin (Bld) [Mass/Vol]O rdered By: Humphrey Juarez on 12-07-2022 Hematocrit (Bld) [Volume fraction] 33.8 % Low 35.0 - 47.0 % [facility] Interpretation and review of laboratory results Abnormal [facility] Hemoglobin (Bld) [Mass/Vol]o n 12-07-2022 Hematocrit (Bld) [Volume fraction] 33.6 % Low 35.0 - 47.0 % [facility] Interpretation and review of laboratory results Abnormal [facility] Hemoglobin (Bld) [Mass/Vol]O rdered By: Rosey Viera on 12-07-2022 Hematocrit (Bld) [Volume fraction] 32.0 % Low 35.0 - 47.0 % [facility] Interpretation and review of laboratory results Abnormal [facility] Laboratory - Chemistry and C hemistry - challengeon 12-07-2022 Magnesium [Mass/Vol] 1.3 mg/dL Low 1.6 - 2 .3 mg/dL [facility] Glucose [Mass/Vol] 179 mg/dL High 70 - 100 mg/dL [facility] Glucose [Mass/Vol] 158 mg/dL High 70 - 100 mg/dL [facility] Glucose [Mass/Vol] 160 mg/dL High 70 - 100 mg/dL [facility] Laboratory - Hematology and Cell countsOrdered By: Humphrey Juarez on 12-07-2022 Hemoglobin (Bld) [Mass/Vol] 10.9 g/dL Low 11.7 - 16.0 g/dL [facility] Laboratory - Hematology and Cell countson 12-07-2022 Hemoglobin (Bld) [Mass/Vol] 11.0 g/dL Low 11.7 - 16.0 g/dL [facility] Laboratory - Hematology and Cell countsOrdered By: Rosey Viera on 12-07-2022 Hemoglobin (Bld) [Mass/Vol] 10.4 g/dL Low 11.7 - 16.0 g/dL [facility] Magnesium [Mass/Vol]on 12-07 Interpretation and review of laboratory results Abnormal [facility] No Panel Informationon 12-07 Interpretation and review of laboratory results Abnormal [facility] Performed by: [facility], [address] [facility] [place] [address] CLIA ID: [id number] [facility] Interpretation and review of laboratory results Abnormal [facility] Performed by: [facility] [place] [facility], [address], [facility] [address] CLIA ID: [id number] [facility] Interpretation and review of laboratory results Abnormal [facility] Performed by: [facility], [address] [facility], [facility] [address] CLIA ID: [id number] [facility] Basic metabolic 1998 panelon 12-06-2022 Anion gap [Moles/Vol] 2 mmol/L Low 3 - 13 mmol/L [facility] Calcium [Mass/Vol] 7.9 mg/dL Low 8.4 - 10. 4 mg/dL [facility] Chloride [Moles/Vol] 105 mmol/L 98 - 10 7 mmol/L [facility] CO2 [Moles/Vol] 26 mmol/L 22 - 30 mmol/L [facility] Creatinine [Mass/Vol] 0.68 mg/dL 0.52 - 1.04 mg/dL [facility] GFR/1.73 sq M.predicted MDRD (S/P/Bld) [Vol rate/Area] 88.7 mL/min/{1.73_m2} - PINF [facility] Comment on above: Calculation based on the Chronic Kidney Disease Epidemiology Collaboration (CKD-EPI) equation refit without adjustment for race Glucose [Mass/Vol] 169 mg/dL High 70 - 100 mg/dL [facility] Interpretation and review of laboratory results Abnormal [facility] Potassium [Moles/Vol] 3.5 mmol/L 3.5 - 5.1 mmol/L [facility] Sodium [Moles/Vol] 134 mmol/L Low 135 - 145 mmol/L [facility] Urea nitrogen [Mass/Vol] 18 mg/dL High 7 - 17 mg/dL [facility] CBC panel Auto (Bld)Ordered By: Donavan Hernandez on 12-06-2022 Erythrocyte distribution width (RBC) [Ratio] 13.7 % 11.5 - 14.5 % [facility] Hematocrit (Bld) [Volume fraction] 33.4 % Low 35.0 - 47.0 % [facility] Hemoglobin (Bld) [Mass/Vol] 11.1 g/dL Low 11.7 - 16.0 g/dL [facility] Interpretation and review of laboratory results Abnormal [facility] MCH (RBC) [Entitic mass] 29.7 pg 26.0 - 34.0 pg [facility] MCHC (RBC) [Mass/Vol] 33.2 % 32.0 - 36.0 % [facility] MCV (RBC) [Entitic vol] 89.5 fL 80.0 - 98.0 fL [facility] Platelet mean volume (Bld) [Entitic vol] 8.4 fL 7.4 - 12.4 fL [facility] Platelets (Bld) [#/Vol] 233 10*3/uL 140 - 440 10*3/uL [facility] RBC (Bld) [#/Vol] 3.73 10*6/uL Low 3.8 - 5.20 10*6/uL [facility] WBC (Bld) [#/Vol] 9.8 10*3/uL 3.6 - 10.7 10*3/uL [facility] Hemoglobin (Bld) [Mass/Vol]o n 12-06-2022 Hematocrit (Bld) [Volume fraction] 36.6 % 35.0 - 47.0 % [facility] Interpretation and review of laboratory results Normal [facility] Hematocrit (Bld) [Volume fraction] 34.3 % Low 35.0 - 47.0 % [facility] Interpretation and review of laboratory results Abnormal [facility] Hemoglobin (Bld) [Mass/Vol]O rdered By: Lizeth Mckeon on 12-06-2022 Hematocrit (Bld) [Volume fraction] 33.9 % Low 35.0 - 47.0 % [facility] Interpretation and review of laboratory results Abnormal [facility] Iron and Iron binding capaci ty panelon 12-06-2022 Interpretation and review of laboratory results Normal [facility] Iron [Mass/Vol] 87 ug/dL 37 - 170 ug/dL [facility] Iron binding capacity [Mass/Vol] 298 ug/dL 261 - 497 ug/dL [facility] Iron saturation [Mass fraction] 29 % 15 - 50 % [facility] Laboratory - Chemistry and C hemistry - challengeon 12-06-2022 Glucose [Mass/Vol] 183 mg/dL High 70 - 100 mg/dL [facility] Glucose [Mass/Vol] 258 mg/dL High 70 - 100 mg/dL [facility] Glucose [Mass/Vol] 238 mg/dL High 70 - 100 mg/dL [facility] Glucose [Mass/Vol] 160 mg/dL High 70 - 100 mg/dL [facility] Laboratory - Coagulationon 0 12-06-2022 aPTT Coag (PPP) [Time] 25.4 s 20.0 - 30.5 s [facility] INR Coag (PPP) [Relative time] 1.0 {INR} 0.9 - 1.1 [facility] Comment on above: Recommended Anticoag ulant Therapy: [...] 11.2 s 9.0 - 1 2.0 s [facility] Laboratory - Hematology and Cell countson 12-06-2022 Hemoglobin (Bld) [Mass/Vol] 12.0 g/dL 11.7 - 16.0 g/dL [facility] Hemoglobin (Bld) [Mass/Vol] 11.3 g/dL Low 11.7 - 16.0 g/dL [facility] Laboratory - Hematology and Cell countsOrdered By: Lizeth Mckeon on 12-06-2022 Hemoglobin (Bld) [Mass/Vol] 11.0 g/dL Low 11.7 - 16.0 g/dL [facility] No Panel Informationon 12-06 Interpretation and review of laboratory results Abnormal [facility] Performed by: [facility], [address] [place] [id number] CLIA ID: [id number] [facility] Interpretation and review of laboratory results Abnormal [facility] Performed by: [facility], [address] [facility] [place] [address] CLIA ID: [id number] [facility] Interpretation and review of laboratory results Abnormal [facility] Performed by: [facility], [address] [facility] [place] [address] CLIA ID: [id number] [facility] Interpretation and review of laboratory results Normal [facility] Interpretation and review of laboratory results Abnormal [facility] Performed by: [facility], [address] [facility] [place] [address] CLIA ID: [id number] [facility] Basic metabolic 1998 panelon 12-05-2022 Anion gap [Moles/Vol] 5 mmol/L 3 - 13 mmol/L [facility] Calcium [Mass/Vol] 8.7 mg/dL 8.4 - 10. 4 mg/dL [facility] Chloride [Moles/Vol] 102 mmol/L 98 - 10 7 mmol/L [facility] CO2 [Moles/Vol] 29 mmol/L 22 - 30 mmol/L [facility] Creatinine [Mass/Vol] 0.91 mg/dL 0.52 - 1.04 mg/dL [facility] GFR/1.73 sq M.predicted MDRD (S/P/Bld) [Vol rate/Area] 64.3 mL/min/{1.73_m2} - PINF [facility] Comment on above: Calculation based on the Chronic Kidney Disease Epidemiology Collaboration (CKD-EPI) equation refit without adjustment for race Glucose [Mass/Vol] 260 mg/dL High 70 - 100 mg/dL [facility] Interpretation and review of laboratory results Abnormal [facility] Potassium [Moles/Vol] 4.0 mmol/L 3.5 - 5.1 mmol/L [facility] Sodium [Moles/Vol] 136 mmol/L 135 - 145 mmol/L [facility] Urea nitrogen [Mass/Vol] 26 mg/dL High 7 - 17 mg/dL [facility] Blood type and Crossmatch pa rodney (Bld)on 12-05-2022 ABO group Nom (Bld) O [facility] Blood group antibody screen GEL Ql Negative [facility] D Ag Ql (RBC) Positive [facility] CBC W Auto Differential pane l (Bld)Ordered By: Clayton Lozano on 12-05-2022 Basophils (Bld) [#/Vol] 0.1 10*3/uL 0.0 - 0.2 10*3/uL [facility] Basophils/100 WBC (Bld) 0.7 % 0.0 - 2.0 % [facility] Eosinophils (Bld) [#/Vol] 0.2 10*3/uL 0.0 - 0.5 10*3/uL [facility] Eosinophils/100 WBC (Bld) 2.0 % 1.0 - 6.0 % [facility] Erythrocyte distribution width (RBC) [Ratio] 13.9 % 11.5 - 14.5 % [facility] Hematocrit (Bld) [Volume fraction] 39.3 % 35.0 - 47.0 % [facility] Hemoglobin (Bld) [Mass/Vol] 12.9 g/dL 11.7 - 16.0 g/dL [facility] Interpretation and review of laboratory results Abnormal [facility] Lymphocytes (Bld) [#/Vol] 1.8 10*3/uL 1.0 - 4.3 10*3/uL [facility] Lymphocytes/100 WBC (Bld) 14.3 % Low 20.0 - 40.0 % [facility] MCH (RBC) [Entitic mass] 29.5 pg 26.0 - 34.0 pg [facility] MCHC (RBC) [Mass/Vol] 32.8 % 32.0 - 36.0 % [facility] MCV (RBC) [Entitic vol] 89.8 fL 80.0 - 98.0 fL [facility] Monocytes (Bld) [#/Vol] 1.0 10*3/uL High 0.0 - 0.8 10*3/uL [facility] Monocytes/100 WBC (Bld) 7.6 % 2.0 - 10.0 % [facility] Neutrophils (Bld) [#/Vol] 9.4 10*3/uL High 1.8 - 7.0 10*3/uL [facility] Neutrophils/100 WBC (Bld) 75.4 % 40.0 - 80.0 % [facility] Nucleated RBC/100 WBC (Bld) [Ratio] 0.1 % [facility] Platelet mean volume (Bld) [Entitic vol] 8.6 fL 7.4 - 12.4 fL [facility] Platelets (Bld) [#/Vol] 271 10*3/uL 140 - 440 10*3/uL [facility] RBC (Bld) [#/Vol] 4.37 10*6/uL 3.8 - 5.20 10*6/uL [facility] WBC (Bld) [#/Vol] 12.5 10*3/uL High 3.6 - 10.7 10*3/uL [facility] CBC panel Auto (Bld)on 12-05 Erythrocyte distribution width (RBC) [Ratio] 13.7 % 11.5 - 14.5 % [facility] Hematocrit (Bld) [Volume fraction] 37.9 % 35.0 - 47.0 % [facility] Hemoglobin (Bld) [Mass/Vol] 12.3 g/dL 11.7 - 16.0 g/dL [facility] Interpretation and review of laboratory results Abnormal [facility] MCH (RBC) [Entitic mass] 29.2 pg 26.0 - 34.0 pg [facility] MCHC (RBC) [Mass/Vol] 32.4 % 32.0 - 36.0 % [facility] MCV (RBC) [Entitic vol] 90.1 fL 80.0 - 98.0 fL [facility] Platelet mean volume (Bld) [Entitic vol] 8.3 fL 7.4 - 12.4 fL [facility] Platelets (Bld) [#/Vol] 244 10*3/uL 140 - 440 10*3/uL [facility] RBC (Bld) [#/Vol] 4.21 10*6/uL 3.8 - 5.20 10*6/uL [facility] WBC (Bld) [#/Vol] 11.6 10*3/uL High 3.6 - 10.7 10*3/uL [facility] CT Abdomen and Pelvis W cont rast Anna 12-05-2022 The etiology of the symptoms is not certain. No extravasation of contrast visualized. Report Dictated on Electronically Signed By: Reece Chandra Electronically Signed Date/Time: 12/05/2022 3:55 PM EDT [facility] Patient Name: RADHA SANDOVAL : [...] soft tissues. Abdominal wall:Ventral hernia fat only. [facility] Reece Chandra MD - 12/05/2022 Patient Name: RADAH SANDOVAL : 1945 [facility]#: [id number] Exam Date/Time: 12/05/2022 15:39 Procedure: CT ABDOMEN [...] Electronically Signed Date/Time: 12/05/2022 3:55 PM EDT [facility] Radiology Study observation (narrative) [facility] alth CT Abdomen and Pelvis W cont rast IVOrdered By: Reece Chandra on 12-05-2022 [facility] Work Phone: Hemoglobin (Bld) [Mass/Vol]o n 12-05-2022 Interpretation and review of laboratory results Normal [facility] Hepatic function 2000 panelo n 12-05-2022 Albumin [Mass/Vol] 4.0 g/dL 3.5 - 5.0 g/dL [facility] ALP [Catalytic activity/Vol] 107 U/L 38 - 126 U/L [facility] ALT [Catalytic activity/Vol] 16 U/L 0 - 34 U/L [facility] AST [Catalytic activity/Vol] 25 U/L 15 - 46 U/L [facility] Bilirubin [Mass/Vol] 0.9 mg/dL 0.2 - 1 .3 mg/dL [facility] Bilirubin.conjugated [Mass/Vol] 0.0 mg/dL 0.0 - 0.3 mg/dL [facility] Protein [Mass/Vol] 7.2 g/dL 6.3 - 8.2 g/dL [facility] Laboratory - Chemistry and C hemistry - challengeon 12-05-2022 Glucose [Mass/Vol] 196 mg/dL High 70 - 100 mg/dL [facility] Glucose [Mass/Vol] 215 mg/dL High 70 - 100 mg/dL [facility] Lipase [Catalytic activity/Vol] 43 U/L 23 - 300 U/L [facility] Laboratory - Coagulationon 0 12-05-2022 aPTT Coag (PPP) [Time] 22.1 s 20.0 - 30.5 s [facility] INR Coag (PPP) [Relative time] 1.0 {INR} 0.9 - 1.1 [facility] Comment on above: Recommended Anticoag ulant Therapy: [...] 11.0 s 9.0 - 1 2.0 s [facility] Laboratory - Hematology and Cell countson 12-05-2022 Hemoglobin (Bld) [Mass/Vol] 12.2 g/dL 11.7 - 16.0 g/dL [facility] No Panel Informationon 12-05 Interpretation and review of laboratory results Abnormal [facility] Performed by: [facility], [address] [place] [address] CLIA ID: [id number] [facility] [employer] [facility] Interpretation and review of laboratory results Normal [facility] Interpretation and review of laboratory results Abnormal [facility] Performed by: [facility], [address] [place] [id number] CLIA ID: [id number] [facility] Interpretation and review of laboratory results Normal [facility] [employer] XR CHEST (2 VW)on 09-09-2021 Patient Name: RADHA SANDOVAL [facility]#: [id number] Diagnostic Radiology ACCESSION EXAM DATE/TIME PROCEDURE ORDERING PROVIDER [id number] 09/09/2021 10:10 EDT CR Chest PA & LAT MD JOHN, SHIV AGRAWAL CPT code 81272 Reason For Exam (CR Chest PA & [...] infiltrate or effusion. Report Dictated on Workstation: [id number] --- Final --- Dictating Physician: MD HELTON YUN ROBERT Signed Date and Time: 09/09/2021 3:48 pm Signed by: MD HELTON YUN ROBERT Transcribed Date and Time: 09/09/2021 3:49 [facility] Vera Helton - 09/09/2021 Patient Name: RADHA SANDOVAL Diagnostic Radiology ACCESSION EXAM DATE/TIME PROCEDURE ORDERING PROVIDER [id number] 09/09/2021 10:10 EDT CR Chest PA & LAT MD JOHN, SHIV AGRAWAL CPT code 60439 Reason For Exam (CR Chest PA & [...] (2 VW)Ordered By: Haven Helton on 09-09-2021 [facility] Work Phone: VL PVR Arterial Doppler Lwr w/o Exerciseon 08-25-2021 VL PVR Arterial Doppler Lwr w/o Exercise Patient Name: RADHA SANDOVAL Ultrasound ACCESSION EXAM DATE/TIME PROCEDURE ORDERING PROVIDER [id number] 08/25/2021 10:09 EST VL PVR Arterial Doppler [id number] -SOMMER CHATTERJEE Lwr w/o Exercise CPT code 94171 Reason For Exam ( PVR Arterial Doppler Lwr w/o Exercise) PVD with ulcer of left leg Report [facility] -- Multilevel Lower Extremity Arterial Evaluation Report Patient Radha Sandoval : 1945 Study 08/25/2021 Name: Eduardo (75yrs) Date: Age: 75 Account: [id number] Gender: F Loc: BP: Ordering Physician: Sommer Chatterjee Steward Dishwasher: Clayton Lr RVT Interpreting Physician: Wicho Morales MD -- Location: [facility] -- Indications: PVD with ulcer. -- Conclusions [...] supine position. Images were obtained using a [employer] vascular ultrasound machine. -- Arterial pressure indices: [...] WICHO MORALES Cardiovascular ACCESSION EXAM DATE/TIME PROCEDURE [id number] 08/25/2021 10:09 EST VL PVR Arterial Doppler Lwr w/o Exercise CPT code 70849 Reason For Exam (VL PVR Arterial Doppler Lwr w/o Exercise) PVD with ulcer of left leg Report [facility] -- Multilevel Lower Extremity Arterial Evaluation Report Patient Radha Sandoval : 1945 Study 08/25/2021 Name: Eduadro (75yrs) Date: Age: 75 Account: [id number] Gender: F Loc: BP: Cardiovascular Report Ordering Physician: Sommer Chatterjee Steward Dishwasher: Clayton rL RVT Interpreting Physician: Wicho Morales MD -- Location: [facility] -- Indications: PVD with ulcer. -- Conclusions [...] PVR wave (more content not included)... Normal [facility] CULT/STAIN - AEROBIC AND KENNA EROBICon 08-07-2021 CULT/STAIN - AEROBIC AND ANAEROBIC STAIN [...] <= 2 S Amoxicillin/Clavulanic Acid(LAVINIA) R Normal [facility] Comment on above: Performed By: #### C CARINA #### [address] [id number] [id number] Culture, Anaerobic and Aerob icon 08-07-2021 Aerobic [...] cells/lpf. Rare gram positive cocci in clusters. [facility] Interpretation and review of laboratory results Abnormal [facility] Test Performed by [id number] [place] [address] LAB [facility] CR Chest PA/LATon 04-22-2021 CR Chest PA/LAT Patient Name: RADHA SANDOVAL Diagnostic Radiology ACCESSION EXAM DATE/TIME PROCEDURE ORDERING PROVIDER [id number] 04/22/2021 11:32 EDT CR Chest PA and LAT MD JOHN, SHIV AGRAWAL CPT code 36628 Reason For Exam (CR Chest PA and [...] Transcribed Date and Time: 04/22/2021 11:47 Normal [facility] MG Breast Tomosynthesis Scr Blon 04-22-2021 MG Breast Tomosynthesis Scr Bl Patient Name: RADHA SANDOVAL Mammography ACCESSION EXAM DATE/TIME PROCEDURE ORDERING PROVIDER [id number] 04/22/2021 11:11 EDT MG Breast Tomosynthesis MD JOHN, SHIV BI Scr TANJA CPT code 30282 43965 Reason For Exam (MG Breast Tomosynthesis BI [...] images: BB's = Nipples; skin lesions [place] = Palpable Line = Scar 2D digital [...] am Signed by: MD HELTON YUN ROBERT [facility] OT Bone Density DEXA Axial S haylie 04-22-2021 OT Bone Density DEXA Axial Skeleton [facility]: [id number] Bone Density ACCESSION EXAM DATE/TIME PROCEDURE ORDERING PROVIDER [id number] 04/22/2021 10:45 EDT OT Bone Density DEXA MD JOHN, SHIV Axial Skeleton TANJA CPT code 49139 Reason For Exam (OT Bone Density DEXA Axial Skeleton) menopause Report DXA BONE DENSITOMETRY: CLINICAL INDICATION: Asymptomatic post-menopausal status COMPARISON: None TECHNIQUE: Quantitative bone mineral densitometry of the hip and lumbar spine was performed with a dual energy x-ray observed absorptiometry device - Holokissnofrog Horizon W. Regions of interest were obtained [...] recommendations for prevention of bone loss include: 4562-2557 mg calcium intake per day for adults [...] and Follow-up. Christa of [employer] Evidence-Based Summaries. [facility] [employer] Education [employer] Research. 2017 Bone Density Report Report Dictated on Final Dictating Physician: MD DELVALLE LAUREN B Signed Date and Time: 04/23/2021 8:00 am Signed by: MD DELVALLE LAUREN B Transcribed Date and Time: 04/23/2021 8:01 Normal [facility] ECHO Complete 2D W Doppler W ColorOrdered By: Shiv Lopez on 10-07-2020 TRANSTHORACIC ECHOCARDIOGRAM PATIENT: Radha Sandoval STUDY DATE: 10/07/2020 : 1945 AGE: 75 HT/WT: 170.2 cm (67 117.9 kg in) (259.4 lb) GENDER: F BP: 144 / 89 LOCATION: [facility] PATIENT [facility] STATUS: *ORDERING PHYSICIAN: * Shiv Lopez *READING PHYSICIAN: * Stuart Grier, *REGULATORY LEAD: * Lizzette Dejesus MD RDCS, AE -- [...] LV ID, ES (more content not included)... [employer] Work Phone: [employer], [employer] Incoming Cardiology Results From [facility] - 10/07/2020 3:44 PM EDT TRANSTHORACIC ECHOCARDIOGRAM PATIENT: Radha Sandoval STUDY DATE: 10/07/2020 : 1945 AGE: 75 HT/WT: 170.2 cm (67 117.9 kg in) (259.4 lb) GENDER: F BP: 144 / 89 LOCATION: [facility] PATIENT [facility]patient [facility] STATUS: *ORDERING PHYSICIAN: * Shiv Lopez *READING PHYSICIAN: * Stuart Grier, *REGULATORY LEAD: * Lizzette Dejesus MD RDCS, AE -- [...] LV end-diastolic volum (more content not included)... [facility] Work Phone: Echo Complete w/wo Contrasto n 10-07-2020 Echo Complete w/wo Contrast Patient Name: RADHA SANDOVAL Ultrasound ACCESSION EXAM DATE/TIME PROCEDURE ORDERING PROVIDER [id number] 10/07/2020 14:50 EDT Echo Complete w/wo MD JOHN, SHIV AGRAWAL Reason For Exam (Echo Complete w/wo Contrast) edema Report TRANSTHORACIC ECHOCARDIOGRAM PATIENT: Radha Sandoval STUDY DATE: 10/07/2020 : 1945 AGE: 75 HT/WT: 170.2 cm (67 117.9 kg in) (259.4 lb) GENDER: F BP: 144 / 89 LOCATION: [facility] PATIENT [facility]patient [facility] STATUS: *ORDERING PHYSICIAN: * Shiv Lopez *READING PHYSICIAN: * Stuart Grier, *REGULATORY LEAD: * Lizzette Dejesus MD RDCS, AE -- [...] ED 0.31 (more content not included)... Normal [facility] Basic Metabolic Panelon 01-17 Anion gap [Moles/Vol] 10 mmol/L [facility], MD Calcium [Mass/Vol] 8.7 mg/dL 8.4 - 10. 4 mg/dL [facility], MD Chloride [Moles/Vol] 101 mmol/L 98 - 10 7 mmol/L [place], [place] CO2 [Moles/Vol] 27 mmol/L 22 - 30 mmol/L [place] Creatinine [Mass/Vol] 1.13 mg/dL 0.52 - 1.25 mg/dL [place] EGFR IF NonAfrican [place] 46.9 mL/min >60 [place] Comment on above: Source- MDRD equatio n with creatinine calibration to IDMS(NKDEP) eGFR not recommended for drug dose adjustment GFR/1.73 sq M predicted among blacks MDRD (S/P/Bld) [Vol rate/Area] 56.8 mL/min/{1.73_m2} >60 [place] Glucose [Mass/Vol] 139 mg/dL High 70 - 100 mg/dL [place] Interpretation and review of laboratory results Abnormal [place] Potassium [Moles/Vol] 4.3 mmol/L 3.5 - 5.1 mmol/L [place] Sodium [Moles/Vol] 137 mmol/L 135 - 145 mmol/L [place] Urea nitrogen [Mass/Vol] 18 mg/dL 7 - 20 mg/dL [place] CBCon 02-01-2019 Erythrocyte distribution width (RBC) [Ratio] 13.4 % 11.5 - 14.5 % [place] Hematocrit (Bld) [Volume fraction] 35.1 % 35 - 47 % [place] Hemoglobin (Bld) [Mass/Vol] 11.8 g/dL 11.7 - 16 g/dL [place] MCH (RBC) [Entitic mass] 30.2 pg 26 - 34 pg [place] MCHC (RBC) [Mass/Vol] 33.8 % 32 - 36 % [place], [place] MCV (RBC) [Entitic vol] 89.4 fL 79 - 98 fL [place] Platelet mean volume (Bld) [Entitic vol] 7.6 fL 7.4 - 10.4 fL [place] Platelets (Bld) [#/Vol] 419 10*3/uL 140 - 440 10*3/uL [place] RBC (Bld) [#/Vol] 3.92 10*6/uL 3.8 - 5.2 10*6/uL [place] WBC (Bld) [#/Vol] 9.4 10*3/uL 3.6 - 10.7 10*3/uL [place] CT CERVICAL SPINE WO LAURA Ton 02-01-2019 [facility], [facility] Incoming Radiology Results From [facility] - 02/01/2019 7:24 PM EDT Patient Name: RADHA SANDOVAL ---CT--- Exam Date/Time 02/01/2019 18:57:[address] Spine Cervical w/o Contrast Ordering Physician MD CR, [facility] Accession Number [id number] CPT4 Codes 06588 () Reason For Exam NECK PAIN FOLLOWING [...] NELSON Transcribed Date and Time: 02/01/2019 7:12 [place] Patient Name: RADHA SANDOVAL ---CT--- Exam Date/Time 02/01/2019 18:57:[address] Spine Cervical w/o Contrast Ordering Physician MD HANKINS ALEKSANDAR Accession Number [id number] CPT4 Codes 96089 () Reason For Exam NECK PAIN FOLLOWING [...] NELSON Transcribed Date and Time: 02/01/2019 7:12 [place], [place] CT HEAD WO CONTRASTon 2018 [facility], [facility] Incoming Radiology Results From [facility] - 02/01/2019 7:40 PM EDT Patient Name: RADHA SANDOVAL ---CT--- Exam Date/Time 02/01/2019 18:57:[address] Head or Brain w/o Contrast Ordering Physician MD HANKINS ALEKSANDAR Accession Number [id number] CPT4 Codes 20545 () Reason For Exam HEAD INJURY MILD [...] R Transcribed Date and Time: 02/01/2019 7:35 [place] Patient Name: RADHA SANDOVAL ---CT--- Exam Date/Time 02/01/2019 18:57:[address] Head or Brain w/o Contrast Ordering Physician MD HANKINS ALEKSANDAR Accession Number [id number] CPT4 Codes 50400 () Reason For Exam HEAD INJURY MILD [...] Dictated: 02/01/2019 7:35 pm Dictating Physician: MD HANNAH, REECE Mejia Signed Date and Time: 02/01/2019 7:38 pm Signed by: MD YOUNG JOHN R Transcribed Date and Time: 02/01/2019 7:35 [place], [place] Ethanolon 02-01-2019 Ethanol Lvl <0.010 0 - 0.01 g/dL [place] Comment on above: NOTE: This result is for medical treatment only. Analysis performed using non-forensic procedures. Otheron 02-01-2019 Test Performed by [address] [id number] [place], [place] Protime/INR & PTTon 02-02-20 19 aPTT Coag (Bld) [Time] 23.9 s 20 - 30.5 s [place], [place] Comment on above: NOTE: The therapeuti c time for Heparin anticoagulation, based on Xa activity inhibition, is an APTT of 46-80 seconds. INR Coag (PPP) [Relative time] 0.9 {INR} [place] Comment on above: Recommended Anticoag ulant [...] [Time] 9.9 s 9 - 12 s [place], [place] Comment on above: . TYPE AND SCREENon 02-01-2019 Sodium [Moles/Vol] Positive [place], [place] Comment on above: Test Performed by [facility], [address] [place] [id number] Sodium [Moles/Vol] O [place] Sodium [Moles/Vol] Negative [place] Comment on above: Test Performed by [facility], [address] [place] [id number] XR CHEST PORTABLEon 02-02-20 [facility], [facility] Incoming Radiology Results From [facility] - 02/01/2019 7:15 PM EDT Patient Name: RADHA SANDOVAL ---Diagnostic Radiology--- Exam Date/Time 02/01/2019 19:11:56 EDT Exam CR Chest Portable Ordering Physician MD HANKINS ALEKSANDAR Accession Number [id number] CPT4 Codes 07949 () Reason For Exam TRAUMA, FALL Report [...] R Transcribed Date and Time: 02/01/2019 7:13 [place] Patient Name: RADHA SANDOVAL ---Diagnostic Radiology--- Exam Date/Time 02/01/2019 19:11:56 EDT Exam CR Chest Portable Ordering Physician MD HANKINS ALEKSANDAR Accession Number [id number] CPT4 Codes 45577 () Reason For Exam TRAUMA, FALL Report [...] R Transcribed Date and Time: 02/01/2019 7:13 [place] XR PELVIS (1-2 VW)on 019 Patient Name: RADHA SANDOVAL ---Diagnostic Radiology--- Exam Date/Time 02/01/2019 19:11:56 EDT Exam CR Pelvis 1 or 2 Views Ordering Physician MD HANKINS ALEKSANDAR Accession Number [id number] CPT4 Codes 24987 () Reason For Exam TRAUMA, FALL Report [...] R Transcribed Date and Time: 02/01/2019 7:12 [place] [facility] Incoming Radiology Results From [facility] - 02/01/2019 7:14 PM EDT Patient Name: RADHA SANDOVAL ---Diagnostic Radiology--- Exam Date/Time 02/01/2019 19:11:56 EDT Exam CR Pelvis 1 or 2 Views Ordering Physician MD HANKINS ALEKSANDAR Accession Number [id number] CPT4 Codes 75386 () Reason For Exam TRAUMA, FALL Report [...] R Transcribed Date and Time: 02/01/2019 7:12 [place] Vital Signs Date Time Vital Sign Value Performing Clinician Faci lity 03-18-2023 11:02-0400 Body temperature 98.7 [degF] [facility] 03-18-2023 11:02-0400 Diastolic blood pressure 50 mm[Hg] [facility] 03-18-2023 11:02-0400 Heart rate 74 /min [place] 03-18-2023 11:02-0400 Respiratory rate 18 /min [facility] 03-18-2023 11:02-0400 SaO2% (BldA) [Mass fraction] 96 % [facility] 03-18-2023 11:02-0400 Systolic blood pressure 142 mm[Hg] [facility] 03-15-2023 14:20-0400 Body height 170.18 cm [place] 03-15-2023 14:20-0400 Body weight 113.21 kg [place] 03-14-2023 09:34-0400 Body mass index (BMI) [Ratio] 39.1 kg/m2 [facility] 03-03-2023 07:40-0400 Body temperature 98.1 [degF] Tasneem Whaley MD Work Phone: [facility] 03-03-2023 07:40-0400 Diastolic blood pressure 81 mm[Hg] Tasneem Whaley MD Work Phone: [facility] 03-03-2023 07:40-0400 Heart rate 93 /min Tasneem Whaley MD Work Phone: [facility] 03-03-2023 07:40-0400 Respiratory rate 16 /min Tasneem Whaley MD Work Phone: [facility] 03-03-2023 07:40-0400 SaO2% (BldA) [Mass fraction] 94 % Tasneem Whaley MD Work Phone: [facility] 03-03-2023 07:40-0400 Systolic blood pressure 154 mm[Hg] Tasneem Whaley MD Work Phone: [facility] 02-27-2023 14:44-0400 Body mass index (BMI) [Ratio] 36.65 kg/m2 Katia Bridenthal MULTIPLE PRESSURE RIVETER OPERATOR - ROLL SETTER Work Phone: [employer] 02-27-2023 14:44-0400 Body temperature 99.1 [degF] Katia Bridenthal MULTIPLE PRESSURE RIVETER OPERATOR - ROLL SETTER Work Phone: [employer] 02-27-2023 14:44-0400 Body weight 106.14 kg Katia Bridenthal MULTIPLE PRESSURE RIVETER OPERATOR - ROLL SETTER Work Phone: [employer] 02-27-2023 14:44-0400 Diastolic blood pressure 72 mm[Hg] Katia Bridenthal MULTIPLE PRESSURE RIVETER OPERATOR - ROLL SETTER Work Phone: [facility] 02-27-2023 14:44-0400 Heart rate 93 /min Katia Bridenthal MULTIPLE PRESSURE RIVETER OPERATOR - ROLL SETTER Work Phone: [employer] 02-27-2023 14:44-0400 Respiratory rate 20 /min Katia Bridenthal MULTIPLE PRESSURE RIVETER OPERATOR - ROLL SETTER Work Phone: [facility] 02-27-2023 14:44-0400 SaO2% (BldA) [Mass fraction] 92 % Katia Bridenthal MULTIPLE PRESSURE RIVETER OPERATOR - ROLL SETTER Work Phone: [facility] 02-27-2023 14:44-0400 Systolic blood pressure 136 mm[Hg] Katia Bridenthal MULTIPLE PRESSURE RIVETER OPERATOR - ROLL SETTER Work Phone: [facility] 02-15-2023 13:07-0400 Body height 170.2 cm Lenard Magallanes DO Work Phone: [employer] [facility] 02-15-2023 13:07-0400 Body mass index (BMI) [Ratio] 35.71 kg/m2 Lenard Magallanes DO Work Phone: [employer] [facility] 02-15-2023 13:07-0400 Body temperature 98.6 [degF] Lenard Magallanes DO Work Phone: [facility] 02-15-2023 13:07-0400 Body weight 103.42 kg Lenard Magallanes DO Work Phone: [facility] 02-15-2023 13:07-0400 Diastolic blood pressure 76 mm[Hg] Lenard Magallanes DO Work Phone: [facility] 02-15-2023 13:07-0400 Heart rate 75 /min Lenard Magallanes DO Work Phone: [facility] 02-15-2023 13:07-0400 Respiratory rate 20 /min Lenard Magallanes DO Work Phone: [facility] 02-15-2023 13:07-0400 Systolic blood pressure 141 mm[Hg] Lenard Magallanes DO Work Phone: [facility] 02-07-2023 11:18-0400 Diastolic blood pressure 72 mm[Hg] Katia Bridenthal MULTIPLE PRESSURE RIVETER OPERATOR - ROLL SETTER Work Phone: [facility] net[employer]ALK 02-07-2023 11:18-0400 Systolic blood pressure 146 mm[Hg] Katia Bridenthal MULTIPLE PRESSURE RIVETER OPERATOR - ROLL SETTER Work Phone: [facility] [employer] 02-07-2023 10:39-0400 Body mass index (BMI) [Ratio] 40.34 kg/m2 Katia Bridenthal MULTIPLE PRESSURE RIVETER OPERATOR - ROLL SETTER Work Phone: [facility] 02-07-2023 10:39-0400 Body temperature 97.3 [degF] Katia Bridenthal MULTIPLE PRESSURE RIVETER OPERATOR - ROLL SETTER Work Phone: [employer] 02-07-2023 10:39-0400 Body weight 109.95 kg Katia Bridenthal MULTIPLE PRESSURE RIVETER OPERATOR - ROLL SETTER Work Phone: [facility] 02-07-2023 10:39-0400 Heart rate 88 /min Katia Bridenthal MULTIPLE PRESSURE RIVETER OPERATOR - ROLL SETTER Work Phone: [facility] 02-07-2023 10:39-0400 Respiratory rate 20 /min Katiaesther Granados MULTIPLE PRESSURE RIVETER OPERATOR - ROLL SETTER Work Phone: [facility] 02-07-2023 10:39-0400 SaO2% (BldA) [Mass fraction] 96 % Katia Bridenthal MULTIPLE PRESSURE RIVETER OPERATOR - ROLL SETTER Work Phone: [facility] 12-07-2022 10:03-0400 Diastolic blood pressure 80 mm[Hg] Anusha Velarde MD Work Phone: [facility] 12-07-2022 10:03-0400 Heart rate 72 /min Anusha Velarde MD Work Phone: [facility] 12-07-2022 10:03-0400 Respiratory rate 18 /min Anusha Velarde MD Work Phone: [facility] 12-07-2022 10:03-0400 SaO2% (BldA) [Mass fraction] 96 % Anusha Velarde MD Work Phone: [facility] 12-07-2022 10:03-0400 Systolic blood pressure 162 mm[Hg] Anusha Velarde MD Work Phone: [facility] 12-07-2022 09:50-0400 Body temperature 97.2 [degF] Anusha Velarde MD Work Phone: [facility] 12-07-2022 08:49-0400 Body height 165.1 cm Anusha Velarde MD Work Phone: [facility] 12-07-2022 08:49-0400 Body mass index (BMI) [Ratio] 41.6 kg/m2 Anusha Velarde MD Work Phone: [facility] 12-07-2022 08:49-0400 Body weight 113.4 kg Anusha Velarde MD Work Phone: [facility] 06-30-2022 08:47-0500 Diastolic blood pressure 62 mm[Hg] Shiv Lopez MD Work Phone: [facility] 06-30-2022 08:47-0500 Heart rate 80 /min Shiv Loepz MD Work Phone: [facility] 06-30-2022 08:47-0500 Systolic blood pressure 125 mm[Hg] Shiv Lopez MD Work Phone: [facility] 06-30-2022 08:16-0500 Body height 165.7 cm Shiv Lopez MD Work Phone: [facility] 06-30-2022 08:16-0500 Body mass index (BMI) [Ratio] 39.96 kg/m2 Shiv Lopez MD Work Phone: [facility] 06-30-2022 08:16-0500 Body weight 109.77 kg Shiv Lopez MD Work Phone: [facility] netTALK Encounters Encounter Date Encounter Type Care Provider Facility Start: 04-24-2025 ambulatory [facility] Facility:[facility] Start: 04-22-2025 ambulatory Melissa Gukasia OLS Facili ty:[facility] Start: 04-10-2025 ambulatory Melissa Gudla OLS Facili ty:[facility] Start: 04-08-2025 ambulatory Dong Schwartz OLS Facil ity:[facility] Start: 04-03-2025 ambulatory Dong Schwartz OLS Facil ity:[facility] Start: 03-26-2025 End: 03-26-2025 ambulatory Melissa Gudla OLS Facility:[facility] Start: 03-20-[address] Melissa Reed MD -[facility] Work Phone: Start: 03-20-2025 End: 03-20-2025 ambulatory Melissa Gudla OLS Facility:[facility] Start: 03-14-[address] [facility] Work Phone: Start: 03-14-2025 End: 03-14-2025 ambulatory Melissa Avela OLS Facility:[facility] Start: 03-10-[address] [facility] Work Phone: Start: 03-10-2025 End: 03-10-2025 ambulatory Melissa Gukasia OLS Facility:[facility] Start: 03-06-[address] Melissa Reed MD -[facility] Work Phone: Start: 03-06-2025 End: 03-06-2025 ambulatory Melissa Gudla Facility:[facility] Start: 02-20-[address] Melissa Reed MD -[facility] Work Phone: Start: 02-20-2025 End: 02-20-2025 ambulatory Melissa Gudla Facility:[facility] Start: 02-06-2025 ambulatory Melissa Gudla OLS Facili ty:[facility] Start: 02-06-[address] Melissa Reed MD -[facility] Work Phone: Start: 01-23-2025 ambulatory Melissa Genedla OLS Facili ty:[facility] Start: 01-23-[address] Melissa Reed MD -[facility] Work Phone: Start: 01-09-[address] Melissa Reed MD -[facility] Work Phone: Start: 01-09-2025 End: 01-09-2025 ambulatory Melissa Gudla Facility:[facility] Start: 12-26-2024 ambulatory Melissa Gudla Facility:[facility] Start: 12-26-[address] Melissa Reed MD -[facility] Work Phone: Start: 12-24-2024 ambulatory Melissa Gudla Facility:[facility] Start: 12-24-[address] Melissa Reed MD -[facility] Work Phone: Start: 12-17-2024 Non-patient / Non-visit Dr. Princess stafford MD [facility] Work Phone: Start: 12-12-2024 End: 12-12-[address] Melissa Reed MD -[facility] Start: 12-12-2024 End: 12-12-[address] Melissa Reed MD -[facility] Work Phone: Start: 12-12-2024 End: 12-12-2024 ambulatory [facility] Facility:[facility] Start: 11-28-2024 End: 11-28-[address] Melissa Reed MD [facility] Work Phone: Start: 11-28-2024 End: 11-28-[address] Melissa Reed MD -[facility] Work Phone: Start: 11-28-[address] Melissa Reed MD -[facility] Work Phone: Start: 11-28-2024 End: 11-28-2024 ambulatory [facility] Facility:[facility] Start: 11-14-[address] Melissa Reed MD -[facility] Work Phone: Start: 11-14-2024 End: 11-14-2024 ambulatory Melissabridgette Vallecillo Facility:[facility] Start: 11-08-2024 End: 11-08-[address] Melissa Reed MD [facility] Work Phone: Start: 11-08-2024 End: 11-08-[address] Melissa Reed MD -[facility] Work Phone: Start: 11-08-2024 End: 11-08-2024 [facility] Start: 10-17-2024 End: 10-17-[address] Melissa Reed MD -[facility] Work Phone: Start: 10-17-2024 End: 10-17-2024 [facility] Start: 10-03-2024 End: 10-03-[address] Shiv Lopez MD Work Phone: [facility] Work Phone: Start: 10-03-2024 End: 10-03-[address] Melissa Reed MD -[facility] Work Phone: Start: 10-03-2024 End: 10-03-2024 [facility] Start: 09-23-2024 ambulatory [facility] Start: 09-23-[address] Melissa Reed MD -[facility] Work Phone: Start: 09-19-2024 End: 09-19-[address] Shiv Lopez MD Work Phone: [facility] Work Phone: Start: 09-19-2024 End: 09-19-[address] Melissa Reed MD -[facility] Work Phone: Start: 09-19-[address] Melissa Reed MD -[facility] Work Phone: Start: 09-19-2024 End: 09-19-2024 [facility] Start: 09-05-2024 End: 09-05-[address] Shiv Lopez MD Work Phone: [facility] Work Phone: Start: 09-05-2024 End: 09-05-[address] Melissa Reed MD -[facility] Work Phone: Start: 09-05-[address] Melissa Reed MD -[facility] Work Phone: Start: 09-05-2024 End: 09-05-2024 ambulatory [facility] Facility:[facility] Start: 08-22-2024 End: 08-22-[address] Shiv Lopez MD Work Phone: [facility] Work Phone: Start: 08-22-2024 End: 08-22-[address] Melissa Reed MD -[facility] Work Phone: Start: 08-22-2024 End: 08-22-2024 ambulatory [facility] Facility:[facility] Start: 08-08-2024 ambulatory [facility] Facility:[facility] Start: 08-08-[address] Melissa Reed MD -[facility] Start: 08-06-2024 ambulatory [facility] Facility:[facility] Start: 08-06-[address] Melissa Reed MD -[facility] Work Phone: Start: 07-31-2024 End: 07-31-[address] Gypsy Argueta MD -Radiology, [facility] Work Phone: Start: 07-31-2024 End: 07-31-2024 ambulatory [facility] Facility:[facility] Start: 07-25-2024 ambulatory Shiv John Facility :[facility] Start: 07-25-[address] Melissa Reed MD -[facility] Work Phone: Start: 07-11-2024 ambulatory [facility] Facility :[facility] Start: 07-11-[address] Melissa Reed MD -[facility] Work Phone: Start: 06-27-2024 End: 06-27-[address] Melissa Reed MD -[facility] Work Phone: Start: 06-27-2024 End: 06-27-[facility] Start: 06-13-2024 ambulatory [facility] Facility :[facility] Start: 06-13-[address] Melissa Reed MD -[facility] Work Phone: Start: 05-29-2024 End: 05-29-[address] Melissa Reed MD -[facility] Work Phone: Start: 05-29-2024 End: 05-29-2024 ambulatory [facility] Facility:[facility] Start: 05-15-2024 End: 05-15-2024 ambulatory [facility] Facility:[facility] Start: 05-01-2024 End: 05-01-2024 ambulatory [facility] Facility:[facility] Start: 12-29-2023 End: 12-29-2023 ambulatory Feliciatorri Garcia [facility] Start: 09-29-2023 End: 09-29-2023 ambulatory [facility] Work Phone: Start: 09-29-2023 End: 09-29-2023 Departed Referred [facility] Work Phone: Start: 09-14-2023 End: 09-14-2023 ambulatory [facility] Work Phone: Start: 09-14-2023 End: 09-14-2023 Departed Referred [facility] Work Phone: Start: 08-31-2023 End: 08-31-2023 ambulatory [facility] Work Phone: Start: 08-31-2023 End: 08-31-2023 Departed Referred [facility] Work Phone: Start: 08-17-2023 End: 08-17-2023 ambulatory [facility] Work Phone: Start: 08-17-2023 End: 08-17-2023 Departed Referred [facility] Work Phone: Start: 08-14-2023 End: 08-14-2023 Departed Referred [facility] Work Phone: Start: 07-31-2023 End: 07-31-2023 Departed Referred [facility] Work Phone: Start: 07-17-2023 End: 07-17-2023 Departed Referred [facility] Work Phone: Start: 07-03-2023 End: 07-03-2023 Departed Referred [facility] Work Phone: Start: 07-03-2023 Registered Referred [facility] Work Phone: Start: 06-23-2023 End: 06-23-2023 ambulatory [facility] Work Phone: Start: 06-23-2023 End: 06-23-2023 Departed [facility]erred [facility] Start: 06-20-2023 End: 06-20-2023 ambulatory [facility] Work Phone: Start: 06-20-2023 End: 06-20-2023 Departed Referred [facility] Work Phone: Start: 06-20-2023 Registered Referred [facility] Work Phone: Start: 05-10-2023 End: 05-10-2023 ambulatory [facility] Work Phone: Start: 05-10-2023 End: 05-10-2023 Departed [facility]erred [facility] Start: 05-10-2023 Registered Referred [facility] Start: 05-01-2023 End: 05-01-2023 ambulatory [facility] Work Phone: Start: 05-01-2023 End: 05-01-2023 Departed [facility] Start: 04-04-2023 End: 04-04-2023 ambulatory [facility] Work Phone: Start: 04-04-2023 End: 04-04-2023 Departed [facility] Start: 03-20-2023 End: 03-20-2023 Departed [facility] Start: 03-03-2023 End: 03-18-2023 Evaluation and management of inpatient [facility] Start: 02-28-2023 End: 03-03-2023 ambulatory Imelda Mann RN [facility] Clinical Communication Start: 02-28-2023 Patient encounter [facility] Start: 02-28-2023 End: 03-03-2023 Emergency department patient visit Tasneem Whaley MD Work Phone: [facility] Comment on above: LING (acute kidney in jury) (CMS/HCC) (HCC) (Primary Dx); Pyelonephritis; Polypharmacy; Insomnia, unspecified type; Pressure ulcer of right buttock, stage 3 (HCC) Start: 02-27-2023 End: 02-27-2023 ambulatory [facility] Start: 02-27-2023 End: 02-27-2023 Office outpatient visit 25 minutes Katia Granados APRN - ROLL SETTER Work Phone: [facility] Comment on above: [...] type Start: 02-23-2023 ambulatory Nan Bush RN [facility] Cl inical Communication Start: 02-23-2023 Patient encounter procedure Nan Bush RN [facility] Clinical Communication Start: 02-15-2023 End: 02-15-2023 Subsequent hospital visit by physician Lenard Magallanes DO Work Phone: [facility] [employer] Comment on above: Arrived Start: 02-15-2023 End: 02-15-2023 ambulatory LENARD MAGALLANES [facility] Start: 02-07-2023 End: 02-07-2023 Office outpatient visit 15 minutes Katiajareth Jeffersonal MULTIPLE PRESSURE RIVETER OPERATOR - ROLL SETTER Work Phone: [facility] Comment on above: Wound of right butto ck, subsequent encounter (Primary Dx); Chronic left shoulder pain Start: 02-07-2023 End: 02-07-2023 ambulatory SHIV LOPEZ [facility] Start: 01-25-2023 ambulatory [facility] Start: 01-25-2023 Patient encounter procedure Colette Poole RN [facility] Clinical Communication Start: 01-12-2023 Refill Katia Kylah thal MULTIPLE PRESSURE RIVETER OPERATOR - ROLL SETTER Work Phone: [facility] Comment on above: Vitamin D deficiency ; Acquired hypothyroidism; Chronic left shoulder pain; Restless legs syndrome (RLS) Start: 12-08-2022 Refill Katiajareth ley MULTIPLE PRESSURE RIVETER OPERATOR - ROLL SETTER Work Phone: [facility] Comment on above: Hyperlipidemia with target LDL less than 70; Acquired hypothyroidism; Chronic left shoulder pain Start: 12-05-2022 ambulatory Sruthi Burns RN [facility] Clinical Communication Start: 12-05-2022 Patient encounter procedure Sruthi Burns RN [facility] Clinical Communication Start: 12-05-2022 End: 12-07-2022 Emergency department patient visit Anusha Velarde MD Work Phone: [facility] Comment on above: Acute lower GI bleed ing (Primary Dx); Rectal bleeding Start: 10-05-2022 Telephone encounter Shiv James MD Work Phone: [facility] Comment on above: Results Start: 08-12-2022 Refill Shiv Lopez MD Work Phone: [facility] Clinical Communication Start: 07-26-2022 Refill Shiv Lopez MD Work Phone: [facility] Start: 07-18-2022 Refill Katia Montero thal MULTIPLE PRESSURE RIVETER OPERATOR - ROLL SETTER Work Phone: [facility] Comment on above: Vitamin D deficiency Start: 07-11-2022 Refill Shiv Lopez MD Work Phone: [facility] Start: 07-08-2022 ambulatory [facility] Start: 07-08-2022 Patient encounter procedure [facility] Comment on above: Trauma (Primary Dx) Start: 07-07-2022 Telephone encounter Devendra ramos MD Work Phone: [facility] [place] Comment on above: Reschedule (07/08/22 ) Start: 06-30-2022 End: 06-30-2022 Office outpatient visit 25 minutes Shiv Lopez MD Work Phone: [facility] Comment on above: Uncontrolled type [...] by physician Shiv Lopez MD Work Phone: [facility] Rad[facility] Comment on above: Dyspnea on exertion Start: 08-25-2021 End: 08-25-2021 Subsequent hospital visit by physician Sommer Chatterjee DPM Work Phone: [facility] Start: 11-05-2020 End: 11-05-2020 Subsequent hospital visit by physician Shiv Lopez MD Work Phone: [facility] [place] [facility] Start: 10-07-2020 End: 10-07-2020 Subsequent hospital visit by physician Shiv Lopez MD Work Phone: [facility] Comment on above: Localized edema Start: 09-29-2020 End: 09-29-2020 Subsequent hospital visit by physician Shiv Lopez Work Phone: [facility] [place] [facility] Start: 09-08-2020 End: 09-08-2020 Subsequent hospital visit by physician Shiv Lopez Work Phone: [facility] [place] [facility] Start: 09-01-2020 End: 09-01-2020 Subsequent hospital visit by physician Roseanne Roberts Work Phone: [facility] Start: 08-18-2020 End: 08-18-2020 Subsequent hospital visit by physician Shiv Lopez Work Phone: [facility] [place] [facility] Start: 07-31-2020 End: 07-31-2020 Subsequent hospital visit by physician Shiv Lopez Work Phone: [facility] [place] [facility] Start: 02-01-2019 End: 02-01-2019 Emergency department patient visit Dick Carter Db Work Phone: [facility] Dept Comment on above: Injury of head, init ial encounter (Primary Dx); Laceration of scalp, initial encounter; Strain of neck muscle, initial encounter Start: 01-18-2019 End: 01-18-2019 Subsequent hospital visit by physician Darya Berrios Work Phone: [facility] Start: 12-21-2016 Ambulatory Shiv Lopez [facility] Procedures Date Procedure Procedure Detail [...] et rgnt non-auto w/o micrscp Katia Bridenthal MULTIPLE PRESSURE RIVETER OPERATOR - ROLL SETTER Work Phone: Start: 02-27-2023 Glucose [Mass/volume ] in Serum or Plasma Katia Bridenthal MULTIPLE PRESSURE RIVETER OPERATOR - ROLL SETTER Work Phone: Start: 02-27-2023 Thyrotropin [Units/v olume] [...] Basic metabolic panel calcium total Ashley L Eronisabella ANASTASIA Work Phone: Start: 06-30-2022 Lipid 1996 panel [...] 02-01-2019 Radiologic exam ches t single view Retrophin Work Phone: Start: 02-01-2019 Radiologic examinati on pelvis 1/2 views Retrophin Work Phone: Start: 02-01-2019 Ct cervical spine w/ o contrast material Duncan Nearwayube Work Phone: Start: 02-01-2019 Ct head/brain w/o co ntrast material Duncan Nearwayube Work Phone: Start: 02-01-2019 Blood typing serologic abo Dick Ace Work Phone: Start: 02-01-2019 Assay of ethanol Dick Ace Work Phone: Start: 02-01-2019 Basic metabolic pane l calcium total Dick Ace Work Phone: Start: 02-01-2019 Blood count complete automated Dick Edie Db Work Phone: Start: 02-01-2019 PROTIME/INR & PTT Yobany bert Ace Work Phone: Plan of Treatment Date Care Activity Detail Author Start: 09-23-2024 Urine culture Urine Culture [facility] Start: 09-23-2024 [facility] Start: 09-05-2024 Urine culture Urine Culture [facility] Start: 09-05-2024 [facility] Start: 02-28-2024 Thyroid stimulating hormone measurement TSH Level [facility] Start: 02-18-2024 Influenza vaccination Influenza Vacc ine (#1) [facility] Start: 02-08-2024 COVID-19 Vaccine (3 - Booster for Brian series) COVID-19 Vaccine (3 - Booster for Brian series) [facility] Comment on above: Postponed from 06/21 (Patient Refused) Start: 02-08-2024 DTaP/Tdap/Td Vaccine s (1 - Tdap) DTaP/Tdap/Td Vaccines (1 - Tdap) [facility] Comment on above: Postponed from 08/27 (Patient Refused) Start: 02-08-2024 Hepatitis C screening Hepatitis C [facility] Comment on above: Postponed from 08/27 (Patient Refused) Start: 02-08-2024 Zoster Vaccines (2 o f 2) Zoster Vaccines (2 of 2) [facility] Comment on above: Postponed from 05/26 (Patient Refused) Start: 08-10-2023 Depression Monitoring Depression Mon itoring [facility] Start: 08-10-2023 [facility] Start: 06-30-2023 Lipid panel Lipid Panel [facility] Start: 06-30-2023 Thyroid stimulating hormone measurement TSH Level [facility] Start: 06-30-2023 Urine screening for protein Diabetes: Urine Protein Screening [facility] Start: 06-19-2023 Medicare Advantage Annual Wellness Visit Medicare Advantage Annual Wellness Visit [facility] Start: 06-14-2023 Depresssion Monitoring Depresssion M onitoring [facility] Start: 04-27-2023 End: 04-27-2023 Patient encounter procedure [facility] Start: 04-27-2023 Depresssion Monitoring Depresssion M onitoring [facility] Start: 04-08-2023 Blood chemistry [facility] Start: 04-01-2023 Blood chemistry [facility] Start: 03-25-2023 Blood chemistry [facility] Start: 03-20-2023 SARS-CoV-2 (COVID-19 ) Ag [Presence] in Respiratory specimen by Rapid immunoassay [facility] Start: 03-19-2023 Development of care plan [facility] Start: 03-18-2023 Patient discharge [facility] Start: 03-17-2023 End: 03-17-2023 [facility] Start: 03-17-2023 Microbial culture, routine Wound Culture [facility] Start: 03-17-2023 Bacterial nucleic ac id assay [facility] Start: 03-13-2023 [facility] Start: 03-06-2023 Referral to radiology manager [facility] Start: 03-04-2023 Development of care plan [facility] Start: 03-03-2023 Admission procedure [facility] Start: 03-03-2023 Measuring intake and output [facility] Start: 03-03-2023 Patient referral to dietitian [facility] Start: 03-03-2023 Referral to occupational therapist [facility] Start: 03-03-2023 [facility] [facility] Start: 03-03-2023 Vital signs measurements [facility] Start: 03-03-2023 [facility] Start: 03-03-2023 Verification routine [facility] Start: 03-03-2023 End: 03-03-2023 Patient encounter procedure [facility] Urogynecology Start: 03-03-2023 Patient referral to dietitian [facility] Start: 02-27-2023 End: 02-28-2024 Bacteria identified in Urine by Culture Urine culture (clean catch) Microbiology Routine Urinary tract infection symptoms Expected: 02/27/2023 (Approximate), Expires: 02/28/2024 [facility] Comment on above: Expected: 02/27/2023 (Approximate), Expires: 02/28/2024 Start: 02-27-2023 End: 02-28-2024 CBC W Auto Differential panel - Blood CBC auto differential Lab Routine History of GI bleed Expected: 02/27/2023 (Approximate), Expires: 02/28/2024 [email or web address] Comment on above: Expected: 02/27/2023 (Approximate), Expires: 02/28/2024 Start: 02-27-2023 End: 02-28-2024 Comprehensive metabolic 1998 panel - Serum or Plasma Comprehensive metabolic panel Lab Routine 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, with long-term current use of insulin, unspecified whether stage 3a or 3b CKD (HCC) Primary hypertension Hypokalemia Expected: 02/27/2023 (Approximate), Expires: 02/28/2024 [facility] Work Phone: Comment on above: Expected: 02/27/2023 (Approximate), Expires: 02/28/2024 Start: 02-27-2023 End: 02-28-2024 Magnesium [Mass/volume] in Serum or Plasma Magnesium Lab Routine 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, with long-term current use of insulin, unspecified whether stage 3a or 3b CKD (HCC) Hypokalemia Expected: 02/27/2023 (Approximate), Expires: 02/28/2024 [employer] [facility] Comment on above: Expected: 02/27/2023 (Approximate), Expires: 02/28/2024 Start: 02-27-2023 End: 02-28-2024 Thyrotropin [Units/volume] in Serum or Plasma TSH Lab Routine Acquired hypothyroidism Expected: 02/27/2023 (Approximate), Expires: 02/28/2024 [facility] Comment on above: Expected: 02/27/2023 (Approximate), Expires: 02/28/2024 Start: 02-27-2023 End: 02-27-2023 Patient encounter procedure 02/27/2023 1:00 PM EDT Office Visit [facility] Uro[facility]cology [address] [place] [id number] Carolina Connolly, MULTIPLE PRESSURE RIVETER OPERATOR - ROLL SETTER [address] [place] [address] [facility] Urogynecology Start: 02-24-2023 End: 02-24-2023 Patient encounter procedure 02/24/2023 11:20 AM EDT Office Visit [facility] Family Medicine [address] [facility] [place] [address] [place] [address] Katia Granados, MULTIPLE PRESSURE RIVETER OPERATOR - ROLL SETTER [address] [facility] [place] [address] [facility] Start: 02-22-2023 End: 02-22-2023 Patient encounter procedure 02/22/2023 2:00 PM EDT Appointment [facility] [address] [place] [address] Lenard Magallanes, DO [address] [place] [address] [facility] Start: 02-17-2023 COVID-19 Vaccine ( season) COVID-19 Vaccine ( season) [facility] Start: 02-17-2023 Influenza vaccination Influenza Vacc ine (#1) [facility] Start: 02-14-2023 End: 02-14-2023 Patient encounter procedure 02/14/2023 10:20 AM EDT Office Visit [facility] [address] [facility] [place] [address] [place] [address] Katia Granados, MULTIPLE PRESSURE RIVETER OPERATOR - ROLL SETTER [address] [facility] [place] [address] [facility] Medicine Start: 02-01-2023 End: 02-01-2023 Patient encounter procedure 02/01/2023 2:15 PM EDT Office Visit [facility] Medicine [address] [facility] [place] [address] [place] [address] Shiv Lopez MD [address] [facility] [place] [address] [facility] Start: 01-25-2023 End: 01-25-2023 Patient encounter procedure 01/25/2023 3:00 PM EDT Office Visit [address] [place] [address] Shiv Lopez MD [address] [place], [place] [address] [address] [facility] Start: 01-03-2023 Hemoglobin A1c measurement Diabetes: Hemoglobin A1C [facility] Start: 10-25-2022 End: 10-25-2022 Patient encounter procedure 10/25/2022 Office Visit Family Medicine Shiv Lopez MD [address] [place], [place] [address] [address] [facility] Start: 09-29-2022 End: 09-29-2022 Patient encounter procedure 09/29/2022 Office Visit Family Medicine Shiv Lopez MD [address] [place], [place] [address] [address] [facility] Start: 09-28-2022 Hemoglobin A1c measurement Diabetes: Hemoglobin A1C [facility] Start: 09-09-2022 Creatinine measurement Creatinine mo nitoring [facility] Start: 09-09-2022 Potassium monitoring Potassium monit oring [facility] Start: 09-09-2022 Thyroid stimulating hormone measurement TSH testing [facility] Start: 08-05-2022 Creatinine measurement Creatinine mo nitoring [facility] Start: 08-05-2022 Potassium monitoring Potassium monit oring [facility] Start: 07-08-2022 Depression Monitoring Depression Mon itoring [facility] Start: 06-30-2022 End: 06-30-2023 25-hydroxyvitamin D3 [Mass/volume] in Serum or Plasma Vitamin D 25 hydroxy Lab Routine Vitamin D deficiency Expected: 06/30/2022 (Approximate), Expires: 06/30/2023 [facility] Work Phone: Comment on above: Expected: 06/30/2022 (Approximate), Expires: 06/30/2023 Start: 06-30-2022 End: 06-30-2023 Comprehensive metabolic 1998 panel - Serum or Plasma Comprehensive metabolic panel Lab Routine Uncontrolled type 2 diabetes mellitus with hyperglycemia (HCC) Expected: 06/30/2022 (Approximate), Expires: 06/30/2023 [facility] Comment on above: Expected: 06/30/2022 (Approximate), Expires: 06/30/2023 Start: 06-30-2022 End: 06-30-2023 Hemoglobin A1c/Hemoglobin.total in Blood Hemoglobin A1c Lab Routine Uncontrolled type 2 diabetes mellitus with hyperglycemia (HCC) Expected: 06/30/2022 (Approximate), Expires: 06/30/2023 [facility] Comment on above: Expected: 06/30/2022 (Approximate), Expires: 06/30/2023 Start: 06-30-2022 End: 06-30-2023 Lipid 1996 panel - Serum or Plasma Lipid panel Lab Routine Hyperlipidemia with target LDL less than 70 Expected: 06/30/2022 (Approximate), Expires: 06/30/2023 [facility] Comment on above: Expected: 06/30/2022 (Approximate), Expires: 06/30/2023 Start: 06-30-2022 End: 06-30-2023 Microalbumin/Creatinine panel in random Urine Microalbumin / creatinine urine ratio Lab Routine Uncontrolled type 2 diabetes mellitus with hyperglycemia (HCC) Expected: 06/30/2022 (Approximate), Expires: 06/30/2023 [facility] Comment on above: Expected: 06/30/2022 (Approximate), Expires: 06/30/2023 Start: 06-30-2022 End: 06-30-2023 Thyrotropin [Units/volume] in Serum or Plasma TSH Lab Routine Acquired hypothyroidism Expected: 06/30/2022 (Approximate), Expires: 06/30/2023 [facility] Comment on above: Expected: 06/30/2022 (Approximate), Expires: 06/30/2023 Start: 06-22-2022 Lipid panel [facility] Start: 03-31-2022 Pneumococcal Vaccine : 65+ Years (2 - PCV) Pneumococcal Vaccine: 65+ Years (2 - PCV) [facility] Start: 02-28-2022 End: 02-28-2022 Patient encounter procedure 02/28/2022 Office Visit Family Shiv Freed MD [address] [place] [address] [facility] [place] [address] [facility] Start: 02-17-2022 Annual Wellness Visi t (AWV) Annual Wellness Visit (AWV) [facility] Start: 02-16-2022 Hepatitis C screening Hepatitis C sc reen [facility] Comment on above: Postponed from 08/27 (Patient Refused) Start: 02-16-2022 Thyroid stimulating hormone measurement TSH testing [facility] Start: 11-02-2021 Hemoglobin A1c measurement Diabetes: Hemoglobin A1C [facility] Start: 10-01-2021 Creatinine measurement Creatinine mo nitoring [facility] Work Phone: Start: 10-01-2021 Potassium monitoring Potassium monit oring [facility] Work Phone: Start: 09-13-2021 End: 09-13-2021 Patient encounter procedure 09/13/2021 Office Visit Family Shiv Freed MD [address] [place] [address] [address] [facility] [place] [address] [facility] Start: 09-02-2021 End: 09-02-2021 Patient encounter procedure 09/02/2021 Office Visit Family Shiv Freed MD [address] [place] [address] [address] [facility] [place] [address] [facility] Start: 06-24-2021 Thyroid stimulating hormone measurement TSH testing [facility] Work Phone: Start: 06-24-2021 TSH Qn TSH testing [facility] Work Phone: Start: 06-21-2021 COVID-19 Vaccine (3 - Booster for Brian series) COVID-19 Vaccine (3 - Booster for Brian series) [facility] Start: 05-26-2021 Shingles Vaccine (2 of 2) Shingles Vaccine (2 of 2) [facility] Start: 05-26-2021 Zoster Vaccines (2 o f 2) Zoster Vaccines (2 of 2) [facility] Start: 04-20-2021 Creatinine measurement [facility] Work Phone: Start: 04-20-2021 Potassium monitoring Potassium monit oring [facility] Work Phone: Start: 01-15-2021 Screening for osteoporosis DEXA (modify frequency per FRAX score) [facility] Work Phone: Comment on above: Postponed from 08/27 (Patient Refused) Start: 01-07-2021 Urine screening for protein Diabetes: Urine Protein Screening [facility] Start: 10-12-2020 End: 10-12-2020 Patient encounter procedure 10/12/2020 Office Visit Family Medicine Shiv Lopez MD [address] [place] [address] [place], [place] [id number] [facility] Start: 10-08-2020 End: 10-08-2020 Patient encounter procedure 10/08/2020 Office Visit [facility] [place] [place] [id number] Canceled (Patient) [facility] Comment on above: Canceled (Patient) Start: 10-01-2020 End: 10-01-2020 Office Visit 10/01/2020 Office Visit Family [facility] [place] [place] [id number] [facility] Start: 06-03-2020 Lipid panel Lipid screen [facility] Work Phone: Start: 01-21-2020 A1C test (Diabetic o r Prediabetic) A1C test (Diabetic or Prediabetic) [place], [place] Start: 01-19-2020 TSH testing TSH testing [place], [place] Start: 06-07-2019 DTaP/Tdap/Td vaccine (1 - Tdap) DTaP/Tdap/Td vaccine (1 - Tdap) [place] Comment on above: Postponed from 08/27 (Patient Refused) Start: 05-23-2019 Diabetic retinal exam Diabetic retin al exam [place] Start: 04-12-2019 Lipid screen Lipid screen [place], [place] Start: 02-17-2019 Influenza vaccination Flu vaccine (# 1) [place] Start: 12-05-2018 Annual Wellness Visi t (AWV) Annual Wellness Visit (AWV) [facility] [employer] Phone: Start: 10-06-2017 [object Object] Diabetic foot exam [place] Start: 10-06-2017 Annual Wellness Visi t (AWV) Annual Wellness Visit (AWV) [place] Start: 03-09-2013 Pneumococcal 65+ yea rs Vaccine (2 of 2 - PCV13) Pneumococcal 65+ years Vaccine (2 of 2 - PCV13) [place] Start: 08-27-2008 DEXA (modify frequen cy per FRAX score) DEXA (modify frequency per FRAX score) [place] Start: 08-27-2008 Pneumococcal 65+ yea rs Vaccine (1 of 2 - PCV13) Pneumococcal 65+ years Vaccine (1 of 2 - PCV13) [place] Start: 2003 RSV Immunization age d 60 or older (1 - 1-dose 60+ series) RSV Immunization aged 60 or older (1 - 1-dose 60+ series) [facility] Start: 08-27-1993 Colon cancer screen colonoscopy Colon cancer screen colonoscopy [place], [place] Start: 08-27-1993 Shingles Vaccine (1 of 2) Shingles Vaccine (1 of 2) [place] Start: 08-27-1962 DTaP/Tdap/Td vaccine (1 - Tdap) DTaP/Tdap/Td vaccine (1 - Tdap) [facility] Start: 08-27-1962 DTaP/Tdap/Td Vaccine s (1 - Tdap) DTaP/Tdap/Td Vaccines (1 - Tdap) [facility] Start: 08-27-1961 Hepatitis C screening Hepatitis C Sc reening [facility] Start: 1959 COVID-19 Vaccine (1 of 2) COVID-19 Vaccine (1 of 2) [facility] Work Phone: Start: 1959 COVID-19 Vaccine (1) COVID-19 Vaccin e (1) [facility] Work Phone: Start: 08-27-1953 Diabetic foot examination Diabetes: Foot Exam [facility] Start: 08-27-1953 Glaucoma screening Diabetes: R etinopathy Screening [facility] Start: 08-27-1953 Preventive dental service Diabetes: Dental Exam [facility] Start: 1945 Hepatitis B Vaccines (1 of 3 - 3-dose series) Hepatitis B Vaccines (1 of 3 - 3-dose series) [facility] Start: 1945 Hepatitis C screening Hepatitis C sc reen [facility] Work Phone: Start: 1945 Thyroid stimulating hormone measurement TSH Level [facility] Dressing Order: Xeroform; Daily; Silicone foam borders (multiple sizes) Dressing Order: Xeroform; Daily; Silicone foam borders (multiple sizes) Wound Ostomy Routine Ordered: 02/15/2023 [facility] Work Phone: Comment on above: Ordered: 02/15/2023 EKG 12 Lead EKG 12 Lead ECG Routine 02/01/2019 7:40 PM EDT [facility], MD Patient referral [facility] Work Phone: Tissue exam [facility] Work Phone: Comment on above: Release Upon Orderin g for 1 Occurrences starting 12/07/2022, 1 completed Immunizations Immunization Date Immunization Notes Care Provider Fa shahla 03-17-2023 Influenza High-Dose Quadrivalent [facility] 03-17-2023 influenza virus vacc ine, unspecified formulation Felicia Garcia LPN [facility] 03-01-2023 Influenza Vac A&B SA Adj quadrivalent (Fluad) vaccine 0.5 mL Tasneem Whaley MD Work Phone: [facility] 04-26-2022 influenza, high dose seasonal, preservative-free Shiv Lopez MD Work Phone: [facility] 04-26-2022 Pneumococcal Conjuga te PCV20, Pf (Prevnar 20) Shiv Lopez MD Work Phone: [facility] 04-26-2022 influenza virus vacc ine, unspecified formulation Katia Granados MULTIPLE PRESSURE RIVETER OPERATOR - ROLL SETTER Work Phone: [facility] 04-26-2021 COVID-19, Moderna, Primary or Immunocompromised, PF, 100mcg/0.5mL Sommer Chatterjee DPM Work Phone: [facility] Work Phone: 03-31-2021 Influenza, Quadv, adjuvanted, 65 yrs +, IM, PF (Fluad) Sommer JARRETTM Work Phone: [facility] Work Phone: 03-31-2021 pneumococcal polysaccharide vaccine, 23 valent Sommer JARRETTM Work Phone: [facility] Work Phone: 03-31-2021 zoster vaccine recombinant Sommer Chatterjee DPM Work Phone: [facility] Work Phone: 08-27-2020 COVID-19, J&J, PF, 0 .5 mL Shiv Lopez MD Work Phone: [facility] Work Phone: 03-31-2020 influenza virus vacc ine, unspecified formulation Shiv Lopez [facility] Work Phone: 03-31-2020 Influenza, Quadv, adjuvanted, 65 yrs +, IM, PF (Fluad) Shiv Lopez [facility] Work Phone: 06-03-2019 influenza, high dose seasonal, preservative-free Shiv Lopez [facility] 05-25-2018 influenza, high dose seasonal, preservative-free Darya Berrios [facility] 05-13-2013 influenza virus vacc ine, unspecified formulation Darya Berrios [place], [place] 05-13-2013 influenza virus vacc ine, whole virus Shiv Lopez [facility] Work Phone: 03-09-2012 pneumococcal Conjuga te, unspecified formulation Shiv MERCADO Work Phone: 03-09-2012 pneumococcal polysaccharide vaccine, 23 valdevonte [facility] 03-09-2012 pneumococcal vaccine , unspecified formulation [place] 04-13-2010 pneumococcal polysaccharide vaccine, 23 valdevonte [facility] 03-[facility]-2001 pneumococcal polysaccharide vaccine, 23 valent Darya Berrios [place], [place] Payers Date Payer Category Payer Self-pay [id number] 2024 Unknown [id number] 2024 Unknown [id number] 2022 Medicare HUMANA MEDICARE ADVANTAGE HU[employer]NA MEDICARE [id number] 2022-Present [address] [address] [place] [address] Medicare HMO [id number] 2020 Medicare [id number]. [id number] 2020 Medicare [id number]. [id number] 2018 Medicare HUMANA MEDICARE HUMANA CHOICE-PPO MEDICARE xxxxxxxxx 2018-Present [address] [address] [place] [address] xxxxxxxxx [id number] Private Health Insurance [facility] [id number] Unknown Unknown [id number] WELL CARE DUAL ACCESS [id number] Unknown [id number] 2.16.840.1.973318.3.579.2. 462 Unknown [id number] 2.16.840.1.169270.3.579.2. 462 Unknown [id number] 2.16.840.1.445967.3.579.2. 462 Unknown [id number] 2.16.840.1.554312.3.579.2. 462 Unknown [id number] 2.16.840.1.837942.3.579.2. 462 Unknown [id number] 2.16.840.1.414476.3.579.2. 462 Unknown [id number] 2.16.840.1.050155.3.579.2. 462 Unknown [id number] 2.16.840.1.846584.3.579.2. 462 Unknown [id number] 2.16.840.1.538514.3.579.2. 462 Unknown [id number] 2.16.840.1.617446.3.579.2. 462 Unknown [id number] 2.16.840.1.224675.3.579.2. 462 Unknown [id number] 2.16.840.1.813336.3.579.2. 462 Unknown [id number] 2.16.840.1.070495.3.579.2. 462 Unknown [id number] 2.16.840.1.776020.3.579.2. 462 Unknown [id number] 2.16.840.1.307779.3.579.2. 462 Unknown [id number] 2.16.840.1.524517.3.579.2. 462 Unknown [id number] 2.16.840.1.506824.3.579.2. 462 Unknown [id number] 2.16.840.1.689192.3.579.2. 462 Unknown [id number] 2.16.840.1.020799.3.579.2. 462 Unknown [id number] 2.16.840.1.889971.3.579.2. 462 Unknown [id number] 2.16.840.1.090931.3.579.2. 462 Unknown [id number] 2.16.840.1.524515.3.579.2. 462 Unknown [id number] 2..840.1.379947.3.579.2. 462 Unknown [id number] 2..840.1.231673.3.579.2. 462 Unknown [id number] 2.840.1.963276.3.579.2. 462 Unknown [id number] 2.840.1.311291.3.579.2. 462 Unknown [id number] 2.840.1.003474.3.579.2. 462 Unknown [id number] 2.840.1.929017.3.579.2. 462 Unknown [id number] 2.840.1.791179.3.579.2. 462 Unknown [id number] 2.840.1.656053.3.579.2. 462 Unknown [id number] 2.840.1.274455.3.579.2. 462 Unknown [id number] 2.840.1.956160.3.579.2. 462 Unknown [id number] 2.16.840.1.497426.3.579.2. 462 Unknown [id number] 2.840.1.152432.3.579.2. 462 Unknown [id number] 2.840.1.333520.3.579.2. 462 Unknown [id number] 2.16.840.1.671876.3.579.2. 462 Unknown [id number] 2.16.840.1.654141.3.579.2. 462 Social History Date Type Detail Facility Start: 07-13-2020 End: 03-03-2023 Tobacco smoking status NHIS Never smoker [place], [place] Start: 07-13-2020 End: 04-09-2022 Tobacco use and exposure Never used [employer] Work Phone: Start: 07-13-2020 End: 06-30-2022 Alcohol intake Current drinker of alcohol (finding) [employer] Work Phone: Start: 01-13-2015 Alcohol Comment [place], [place] Start: 1945 Sex Assigned At Female [employer] Phone: Start: 08-30-2021 End: 02-28-2023 Exposure to SARS-CoV-2 (event) Not sure [employer] Work Phone: Start: 01-18-2019 End: 12-13-2022 Alcohol intake Yes [facility] Sex Assigned At Not on file [place] Start: 02-01-2019 End: 03-03-2023 Tobacco smoking status NHIS Unknown if ever smoked [facility] Start: 10-14-2020 End: 12-13-2022 Alcohol intake [facility] Start: 02-16-2021 End: 04-26-2022 History SDOH Alcohol Frequency 1 [employer] Work Phone: Start: 02-15-2021 End: 04-26-2022 History SDOH Financial 3 [employer] Work Phone: Start: 02-15-2021 End: 04-26-2022 History SDOH Transport Med 2 [employer] Work Phone: Start: 04-09-2022 Alcohol Comment social [facility] Within the last year , have you been afraid of your partner or ex-partner? No [facility] How often to you hav e a drink containing alcohol? 2-4 times a month [facility] How many standard dr inks containing alcohol do you have on a typical day? 1 or 2 [facility] How often do you hav e 6 or more drinks on 1 occasion? Never [facility] How hard is it for y ou to pay for the very basics like food, housing, medical care, and heating Hard [facility] (I/We) worried whejohn er (my/our) food would run out before (I/we) got money to buy more. Never true [facility] In the past 12 month s, has lack of transportation kept you from medical appointments or from getting medications? No [facility] Start: 12-07-2022 Alcohol Comment social; 1 mixed drink every 2 weeks [facility] Start: 04-07-2022 Gender identity Identifies as female gender (finding) [facility] Start: 04-07-2022 Sexual orientation Heterosexual (finding) [facility] Do you feel stress - tense, restless, nervous, or anxious, or unable to sleep at night because your mind is troubled all the time - these days [OSQ] Only a little [facility] Are you now , , , , never or living with a partner? [facility] Start: 09-18-2024 End: 10-14-2024 Sex Female (finding) [facility] Medical Equipment Procedure Code Equipment Code Equipment Origin al Text Equipment Identifier Dates Test blood sugar 4 times a day [id number] Start: 03-25-2020 End: 10-01-2020 2 daily [id number] Start: 03-20-2019 Test blood sugar 4 times daily [id number] Start: 01-01-2019 test blood sugar 4 times daily [id number] Start: 01-13-2020 300 each by Does not apply route 4 times daily [id number] Start: 01-01-2019 ASSURE COMFORT LANCETS 30G MISC [id number] Start: 09-07-2016 1 each by In Vit ro route 4 times daily [id number] Start: 01-01-2019 4 times a day [id number] Start: 09-22-2017 2 daily [id number] Start: 01-03-2019 4 times a day [id number] Start: 07-25-2018 1 each by In Vit ro route 4 times daily as needed (patient tests four times daily and as needed) Patient tests QID [id number] Start: 03-01-2021 Test blood sugar 4 times daily [id number] Start: 12-18-2020 1 each by In Vit ro route 4 times daily Accu-check [employer] [facility] [id number] Start: 06-22-2021 End: 08-05-2021 Test blood sugar 3 times a day.PLEASE FILL FOR QUIK TEST STRIPS [id number] Start: 09-09-2021 [id number] Start: 01-10-2022 End: 03-03-2023 Goals Date Patient [...] Facility 03-18-2023 Functional status Ambulates;Wilson r;Bathroom Privilege [facility] Work Phone: Mental Status Date Assessment Result Facility 03-18-2023 Cognitive function Voice/Name [facility] Work Phone: 03-18-2023 Cognitive function Appropriate;Coopersuly e [facility] Work Phone: Clinical Notes 06-30-2022 to 12-29-2023 Felicia Garcia LPN - 12/29/2023 1:02 PM EDTRyolanda Garcia LPN - 12/29/2023 1:02 PM EDTAshia Dumont - 12/29/2023 1:02 PM EDT Note Date & Type Note Facility 12-29-2023 History of Presen t illness Narrative Please schedule AWV. documented in this encounter [facility] 12-29-2023 History of Presen t illness Narrative Please schedule AWV. Called patient---phone number is not working--sent letter by mail. documented in this encounter [facility] 05-19-2023 Note THE PT. WAS SCHEDULE D FOR AN OUTREACH TODAY. EMR REVIEWED. CM CALLED AND SPOKE WITH A STAFF MEMBER AT [facility] AND THE PT. IS STILL ADMITTED TO THE SENIOR CARE FACILITY. CM WILL CONTINUE TO FOLLOW-UP WITH THE PT. ONCE SHE IS DISCHARGED TO HOME. [facility] 05-03-2023 Note THE PT. WAS SCHEDULE D FOR AN OUTREACH TODAY. EMR REVIEWED. CM CALLED AND SPOKE WITH A STAFF MEMBER AT [facility] AND THE PT. IS STILL ADMITTED TO THE SENIOR CARE FACILITY. CM WILL CONTINUE TO FOLLOW-UP WITH THE PT. ONCE SHE IS DISCHARGED TO HOME. [facility] 03-29-2023 Note Referral from [employer] Daily [employer] Report. Patient with recent admit to [facility] 02/28-03/03 with LING/functional decline and was discharged to [facility] SNF. Patient with several chronic diagnoses. Will send referral to [facility] Shari BARROW, for further chart review and potential ongoing CM. [facility] 03-17-2023 Discharge summary Note Date/Time March 15, 2023 7:15pm [facility] Medical Records Department [address] [place] [address] Discharge Summary 03/15/231913 MR#: [id number] Acct: [id number] Name: RADHA SANDOVAL Rep #:[id number] : 1945 77 From: Baljit Jaffe MD PCP: Dr. Shiv Lopez MD Status:ADM IN Location: [place] [address] Providers Date of Admission: 03/03/23 Primary Care [...] - Buspar 5mg bid prn, stable chronic janitor custodian use, GDR not recommended. * Vitamin D [...] Depression - Paroxetine 20mg qhs, stable chronic penitentiary use, GDR not recommended. * Restless Leg [...] unit/mL subcutaneous solution 19 unit subcut DAILY Omlidpyh41/15/23 insulin lispro 100 unit/mL subcutaneous pen (Humalog [...] for cellulitis bilateral lower extremities. Discharge to [facility] 03/18/2023, intermediate, Part B therapies. Physical [...] and Uncontrolled pain Additional Instructions: Discharge to [facility] 03/18/2023, intermediate, Part B therapies. Meaningful Use Info Meaningful Use Diagnoses (Choose all that apply): None applicable Discharge Plan Admission Admit Date/Time: 03/03/23 13:30 Primary Reason for Your Visit: Debility. Attending Provider: Baljit Jaffe Chi Primary Care Provider: Shiv Lopez Consulting Providers: Omar Huitron Instructions Additional Instructions / Restrictions: Discharge to [facility] 03/18/2023, intermediate, Part B therapies. Discharge [...] bid x 10 days, culture pending at [facility] lab. 03/17/23 1545<Electronically signed by Baljit Jaffe MD> Cosigner Signature (if applicable): cc: Dr. Shiv Lopez MD; Dr. Baljit Jaffe MD ~* Signed [facility] Work Phone: 1(324) 529-544109-27-2023 Discharge summary Author [facility] March 15, 2023 7:35pm Note Date/Time March 15, 2023 7:35pm [facility] Medical Records Department [address] [place] [address] Transfer to [facility] MR#: [id number] Acct: [id number] Name: RADHA SANDOVAL Rep #:[id number] : 1945 77 From: Baljit Jaffe MD PCP: Dr. Shiv Lopez MD Status:ADM IN Certification of patient admission REQUIRED AT TIME OF ADMISSION. I CERTIFY THAT POST-HOSPITAL F SERVICES ARE REQUIRED TO BE GIVEN ON AN IN-PATIENT BASIS BECAUSE OF THE ABOVE NAMED PATIENT'S NEED FOR SNF CARE ON A CONTINUING BASIS FOR THE CONDITION(S) FOR WHICH HE/SHE WAS RECEIVING IN-PATIENT HOSPITAL SERVICES PRIOR TO HIS/HER TRANSFER TO THE [facility]. 03/15/231934<Electronically signed by Baljit Jaffe MD> [...] - Buspar 5mg bid prn, stable chronic janitor custodian use, GDR not recomme nded. * Vitamin [...] Depression - Paroxetine 20mg qhs, stable chronic penitentiary use, GDR not recommended. * Restless Leg [...] Instructions Additional Instructions / Restrictions: Discharge to [facility] 03/18/2023, intermediate, Part B therapies. Discharge [...] ALEXI Huitron; Dr. Shiv Lopez MD ~ [facility] Work Phone: [phone]) 376-371109-27-2023 NotePlease send her immunization record [facility]09-20-2023 Consult note Author Shine Rojas [facility] March 08, 2023 11:33am Note Date/Time March 08, 2023 11:33am [facility] Medical Records Department [address] [place] [address] Consultation 03/08/23 1130 MR#: [id number] Acct: [id number] Name: RADHA SANDOVAL Rep #:[id number] : 1945 77 From: Shine Rojas DPM PCP: Dr. Shiv Lopez MD Status:ADM IN [facility] Assessment & Plan Assessment/Plan (1) Type 2 [...] controlled today not causing patient any issues. [facility] Medical History Anemia Arthritis [...] unit/mL subcutaneous solution 19 unit subcut DAILY Sqdcekcq85/15/23 [History Last Taken 03/03/23] insulin lispro 100 [...] Lopez MD; Dr. Baljit Jaffe MD~ Signed [facility] Work Phone: 1([phone]) 539-581109-19-2023 Progress note Author Betty Hicks [facility] March 07, 2023 4:16pm Note Date/Time March 07, 2023 3:00pm [facility] Medical Records Department [address] [place] [address] Progress Note - Pharmacy 03/07/23 1456 MR#: [id number] Acct: [id number] Name: RADHA SANDOVAL Rep #:[id number] : 1945 77 From: Betty Hicks PCP: Dr. Shiv Lopez MD Status:ADM IN Location: [place] [address] TCU RX Drug Regimen Review Subjective/Objective Subjective/Objective: [...] Syringe SC 40 mg DAILY@0600 [facility] Administration Ergocalciferol 1.25 mg 03/10/23 08:00 Ergocalciferol 1.25 Mg (50, 000 Unit) Capsule PO QWEEK [facility] Hydralazine HCl 25 mg 03/03/23 22:00 03/07/23 14:08 Hydralazine 25 Mg Tablet PO 25 mg TID [facility] Administration Hydroxyzine Pamoate 25 mg 03/07/23 08:07 03/07/23 14:50 Hydroxyzine Juanita 25 Mg Capsule PO 25 mg TID PRN PRN Administration ITCHING/ANXIETY Insulin Glargine 19 unit 03/04/23 10:00 03/07/23 08:52 Insulin Glargine-Yfgn 100 Unit/Ml Pen SC 19 unit DAILY [facility] Administration Insulin Human Lispro 10 unit 03/03/23 16:45 03/07/23 11:54 Insulin Lispro 100 Unit/Ml Insuln.Pen SC 10 unit TIDAC [facility] Administration Levothyroxine Sodium 125 mcg 03/04/23 06:00 03/07/23 06:43 Levothyroxine 125 Mcg Tablet PO 125 mcg DAILY@0600 [facility] Administration Magnesium Citrate 300 ml 03/03/23 16:40 Magnesium Citrate 300 Ml PO DAILY PRN CONSTIPATION Melatonin 3 mg 03/03/23 22:00 03/06/23 20:54 Melatonin 3 Mg Tablet PO 3 mg QHS [facility] Administration Nutritional Formula (Lactose Free) 120 ml 03/03/23 17:45 03/07/23 11:48 Glucerna Shake 120 Ml Liquid PO 120 ml TIDCM [facility] Administration Nystatin 1 applic 03/03/23 22:00 03/07/23 08:54 Nystatin Powder 30 Gm Bottle TOPICAL 1 applic BID [facility] Administration Protocol Nystatin/Triamcinolone Acetonide 1 applic 03/03/23 22:00 03/07/23 08:53 Nystatin/Triamcin Cream Tube TOPICAL 1 applic BID [facility] Administration Protocol Paroxetine HCl 20 mg 03/04/23 [...] 1616 <Electronically signed by Betty Hicks> Betty Covington Signature (if applicable): CC: ~ Signed [facility] Work Phone: 1(341) 965-834309-15-2023 History and physical note Author Baljit Jaffe [facility] March 03, 2023 4:39pm Note Date/Time March 03, 2023 3:08pm [facility] Medical Records Department [address] [place] [address] History & Physical Exam 03/03/23 1501 MR#: [id number] Acct: [id number] Name: RADHA SANDOVAL Rep #:[id number] : 1945 77 From: Baljit Jaffe MD PCP: Dr. Shiv Lopez MD Status:ADM IN Location: T[facility] [place] [address] HPI - General General Date of Admission: 03/03/23 Date of Service: 03/03/23 Chief Complaint: Here for rehabilitation. HPI Narrative RADHA SANDOVAL, is a 77 Female who presents with followin02/27/2023 Dr. Shiv Lopez prescribed Augmentin for dysuria, polyuria, low back pain for urinary tract infection. Augmentin not started, symptoms worse, patient presented to ED. 02/28/[address] [facility]. Low back pain, dysuria, polyuria, weakness. Diabetes with hyperglycemia, weakness, urinary tract infection. IV antibiotics for urinary tract infection. IV fluids, sliding scale insulin for Diabetes Mellitus II. PT/OT for weakness. 03/01/2023 Feels better, weak, pain improved. Continue IV antibiotics. 03/03/2023 Admit to TCU with debility, here for rehabilitation, strengthening, prior to discharge home alone. [facility] Medical History Anemia Arthritis [...] unit/mL subcutaneous solution 19 unit subcut DAILY Ggktpxmy24/15/23 [History Last Taken 03/03/23] insulin lispro 100 [...] - Buspar 5mg bid prn, stable chronic penitentiary use, GDR not recommended. * Vitamin D [...] Depression - Paroxetine 20mg qhs, stable chronic penitentiary use, GDR not recommended. * Restless Leg syndrome - Mirapex 0.25mg qhs. 03/03/23 1639 <Electronically signed by Baljit Jaffe MD> Cosigner Signature (if applicable): CC: Dr. Shiv Lopez MD; Dr. Baljit Jaffe MD~ Signed [facility] Work Phone: 1(951) 670-295909-15-2023 History of Present illness Narrative* Randi Marquez RN - 03/03/2023 1:08 PM EDT Discharged via ambulance to [facility] * Randi Marquez RN - 03/03/2023 11:19 AM EDT Report called to pippa at [facility] at [phone] * Jelly Paz APRN - ROLL SETTER - 03/02/2023 12:54 PM EDT Images from the original note were not included. Department of Internal Medicine Division of Endocrinology, Diabetes, & Metabolism Endocrinology Note Patient Name: Radha Sandoval : 1945 AGE: 77 y.o. Room/Bed: [facility]/[address] Admission Date: 02/28/2023 Visit Date: 03/02/2023 Reason for Endocrine Consult: DM-Uncontrolled Provider/Team Requesting Consult: Dr. Finch PCP: Shiv Lopez MD Outpt Energy Advisor: No ASSESSMENT: Type II diabetes with hyperglycemia, with janitor custodian insulin use Postoperative hypothyroidism Patient admitted for [...] breakfast Patient to discharge to SNF - [facility] Outpt Follow Up-- PCP SUBJECTIVE/HPI: CHIEF [...] diagnosis. She has been having diarrhea in [id number], smt severe Glimepiride- started in 2015 Trulicity [...] CHOLHDLRATIO 4 02/16/2021 No results found for: [id number] Lab Results Component Value Date TSH 0.03 (L) 02/27/2023 Radiology reportsas per the Radiologist Radiology: CT abdomen pelvis wo IV contrast Result Date: 02/28/2023 [facility]OVAL : 1945 [id number] ExamDate/Time: 02/28/2023 13:07 Procedure: CT ABDOMEN PELVIS [...] 12/07/2022 Performed by Avery Marshall DO at [facility] ENDOSCOPY EYE SURGERY Bilateral early [...] were not included. Occupational Therapy OCCUPATIONAL THERAPY [facility] Treatment Note Name/MRN: Radha Sandoval ([id number]) Date of : 1945 Age: 77 y.o. [...] note were not included. Hospitalist Progress Note 03/02/[id number]: Please secure chat me for patient care issues. [phone]: Please secure chat [facility] Hospitalist for any issues. Subjective: Admit Date: 02/28/2023 PCP: Shiv Lopez MD Room#: B1-153/B1-153 A Interval History: Tolerating diet. Remains weak. Still urinating frequently. She denies chest pain,sob, cough, abdominal pain, nausea, vomiting, diarrhea, constipation, fevers, or chills. D/w pt Adult diet Regular; Low Sodium (2 gm); 4 carb choices (60 gm/meal) @[id number]@ 24HR INTAKE/OUTPUT: No intake or output data [...] PLT 278 271 252 BMP: Recent Labs 02/28/232 03/01/23 0344 03/02/23 0400 NA 130* 137 [...] Primary Emergency Contact: Angel Roger Address: [address] Mobile Relation: Child GABRIELLE FINCH MD Division of Hospitalist Medicine [facility] PAGER: [employer] chat * Diann Hollis APRN - ROLL SETTER - 03/02/2023 9:31 AM EDT [facility] Geriatric Medicine Inpatient Consult Service Admission Date: 02/28/2023 Assessment Principal Problem: LING (acute kidney injury) (CMS/HCC) ([facility]) Active Problems: Declining functional status Weakness Anxiety Polypharmacy DNR (do not resuscitate) Insomnia Plan Declining functional status -Related to physical deconditioning, UTI, advanced age, diabetes type 2 -Continue PT/OT as able while inpatient -Anticipate d/c to SNF for ongoing daily PT/OT, patient agreeable to go to [facility] Fall Weakness -Multiple risk factors including [...] contact guard. Ambulated 30 ft x2. Recommending [facility] facility . Review of Systems Constitutional: Negative [...] data in the 24 hours ending 03/02/23 09 Wt Readings from Last 3 Encounters: 02/27/23 [...] 19 Units, SubCUTAneous, q AM, Jelly Paz, MULTIPLE PRESSURE RIVETER OPERATOR - ROLL SETTER, 19 Units at 03/02/23908 Insulin Lispro (Humalog) injection 0-12 Units, 0-12 Units, SubCUTAneous, TID WC, 2 Units at 03/02/23908 AND [DISCONTINUED] Insulin Lispro (Humalog) injection 0-12 Units, 0-12 Units, SubCUTAneous, Nightly, Gabrielle Finch MD, 4 Units at 02/28/232053 Insulin Lispro (Humalog) injection 6 Units, 6 Units, SubCUTAneous, 4x daily AC & HS, Jelly Paz, ELSA - ROLL SETTER, 6 Units at 03/02/23604 levothyroxine (Synthroid, Levoxyl) [...] 0.03 (L) 02/27/2023 No results found for: [id number] Lab Results Component Value Date VITD25 17 (L) 03/02/2023 Reviewed: allergies, previous encounters, imaging, active problem lists, medications, and labs * Edelmira Hanna - 03/02/2023 8:23 AM EDT Nutrition rescreen completed. Pt referred to RD for uncontrolled DM, and nutrition supplement per Wound Care. * Monet Mcdonnell, PT - 03/01/2023 3:47 PM EDT Physical Therapy Facility/Department: [address] Physical Therapy Initial Evaluation NAME: Radha Sandoval : 1945 Date of Service: 03/01/2023 Discharge Recommendations: Retirement Facility, Continue to assess pending progress PT [...] diagnosis was LING (acute kidney injury) (CMS/HCC) ([facility]). Diagnoses of Pyelonephritis, Polypharmacy, Insomnia, unspecified type, and Pressure ulcer of right buttock, stage 3 (HCC) were also pertinent to this visit. has a past medical history of Acquired lymphedema, Allergic, Anxiety, Arthritis, Asthma, Candidiasis of vulva and vagina, CKD (chronic kidney disease), Depression, Dietary counseling and surveillance, Hyperlipidemia, Hyperparathyroidism ([facility]), Hypertension, Hypothyroidism, Malaise and fatigue, Morbid obesity (HCC), Muscle weakness, Nevus, non-neoplastic, Pain in limb, Pure hypercholesterolemia, RLS (restless legs syndrome), Type 2 diabetes mellitus (HCC), and Varicella. has a past surgical history that includes Appendectomy; Cholecystectomy (1979); Colonoscopy (06/19/2008); Lung removal, partial (Left); Rotator cuff repair (Left); Tonsillectomy; Eye surgery (Bilateral, early 's); and Colonoscopy w/ biopsies and polypectomy (N/A, [...] Device: straight cane Transfer Assistance: Independent Active Electrical Designer: Yes Objective Observation/Palpation Posture: Good Observation: PIV [...] were not included. Hospitalist Progress Note 03/01/2023 [phone]: Please secure chat me for patient care issues. [phone]: Please secure chat [facility] [...] (2 gm); 4 carb choices (60 gm/meal) @WQGD4KFUDRW@ 24HR INTAKE/OUTPUT: No intake or output data [...] Primary Emergency Contact: Angel Roger Address: [address] Mobile Relation: Child GABRIELLE FINCH MD Division of Hospitalist Medicine [facility] PAGER: [employer] chat * Gunner Roberts, OT - 03/01/2023 11:54 AM EDT Images from the original note were not included. Occupational Therapy OCCUPATIONAL THERAPY [facility] Initial Evaluation Name/MRN: Radha Sandoval ([id number]) Evaluation Date: 03/01/2023 Date of : 1945 [...] 12/07/2022 Performed by Avery Marshall DO at [facility] ENDOSCOPY EYE SURGERY Bilateral early ' LUNG REMOVAL, PARTIAL Left ROTATOR CUFF REPAIR Left TONSILLECTOMY Admission Diagnosis: Patient Active Problem List Diagnosis Date Noted LING (acute kidney injury) ([facility]/HCC) (HCC) 02/28/2023 Acute cystitis with hematuria [...] Uncontrolled type 2 diabetes mellitus with hyperglycemia ([facility]) 01/16/2020 Morbidly obese ([facility]) 01/16/2020 Vitamin D deficiency 01/16/2020 Moderate episode of recurrent major depressive disorder ([facility]) 06/03/2019 Chronic renal insufficiency, stage III (moderate) ([facility]) 06/03/2019 Hyperlipidemia with target LDL less [...] Responsibilities: Independent Receives Help From: None Active Electrical Designer: Yes Prior Level of Function ADL Assistance: [...] of Care supervision is transferred to a [facility] Therapy Services Occupational Therapist. Goals and/or treatment plan was established in collaboration with patient/family/other representatives. documented in this [facility]09-15-2023 Hospital course Narrative* Gabrielle Finch MD - [...] mg) by mouth daily. ergocalciferol 1.25 MG (57281 UT) capsule Commonly known as: Vitamin D-2 [...] Your Medications These medications were sent to [facility] [address] [place] [address] Hours: Monday to Monday 10 am to [...] Complexity: follow up within 7-14 calendar days (64084) [] Severe Complexity: follow up within 7 calendar days (94540) FOLLOW UP TESTING, PENDING RESULTS OR REFERRALS AT TRANSITIONAL CARE VISIT: [] Yes [] No PENDING STUDIES: No DISPOSITION: SNF FACILITY/HOME CARE AGENCY NAME: [facility] SNF Follow up with [facility] [address] [facility] [address] INSTRUCTIONS TO MA/SW: Please call [...] MD 03/03/2023, 5:28 PM documented in this [facility]09-15-2023 NoteDischarge Summary Radha Sandoval : 1945 ADMIT [...] 271 252 257 BMP: Recent Labs 03/01/23 03403/02/23 0400 03/03/23 0130 NA 137 135 134* [...] mg) by mouth daily. ergocalciferol 1.25 MG (51798 UT) capsule Commonly known as: Vitamin D-2 [...] these medications amoxicillin-clavulan (more content not included)...[facility] 03-03-2023 Note* Care Coordination - Ester Lipscomb - 03/03/2023 11:21 AM EDT Discharge med [facility] request. [id number] Miscellaneous Notes* Restricted notes were excluded * Care Coordination - Ester Lipscomb - 03/03/2023 11:21 AM EDT Discharge med list transmitted to [facility] via [facility] per [facility] request. * Care Coordination - Unknown Case Management - 03/03/2023 11:20 AM EDT Patient Choice Patient Name: RADHA SANDOVAL Date of : 1945 All Providers Sent Referral Name: [facility] SNF Address: [address] [place] [address] Name: [employer] Address: [address] [place] [address] * Care Coordination - Laura Jackson RN - 03/03/2023 9:33 AM EDT Spoke with pt at bedside regarding POA, pt states she is not interested at this time to complete itand would consider completing at [facility] - did call Rafaela at [facility] to update her as well. * Care Coordination - COLT Hill - 03/03/2023 8:41 AM EDT Transportation arranged through [facility] by cot set for 10 am pick and shovel worker. Will notify RN and TCC of this in rounds. Notified patient's son via phone of transportation time. SW remains available if any other needs concerns arise. * Care Coordination - Laura Jackson RN - 03/03/2023 7:29 AM EDT Insurance auth obtained for [facility] facility, updated Dr Finch notified via [employer] Chat. * Care Coordination - Laura Jackson RN - 03/02/2023 11:15 AM EDT Received a call from Rafaela at [facility], they are able to accept, pt agreeable. 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 [facility] at this time * Care Coordination - Ester Lipscomb - 03/02/2023 8:40 AM EDT Referral placed to SNF- [facility] via [facility] per TCC request. Await review and response regarding ability to accept. TCC notified. * Care Coordination - Laura Jackson RN - 03/02/2023 8:21 AM EDT Spoke with pt agreeable for referral to [facility], [facility] tasked to complete * Home Care - Tasneem Anaya LPN - 03/01/2023 4:25 PM EDT Plasma Cutting 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 following case for Discharge Needs. Therapy states SNF, but Patient wants HC instead. * Care Coordination - Laura Jackson RN - 03/01/2023 10:14 AM EDT Care Managment Initial Assessment Date: 03/01/2023 Patient Name: Radha Sandoval : 1945 Patient Information Source of Information: Patient Cognition/Language: WFL - Within Functional Limits Permission given to speak with patient accounting representative/caregiver as indicated: Yes Confirmation of Payer [...] Prescription Coverage: Yes Pharmacy Used: [facility] Medication Management: Independent Transportation/Shopping: Independent Transportation Mode: [...] in SNF but would be able to [facility]. [facility] liaison following, TCC to assist and follow as needed. Laura Jackson RN * Care Plan - Anaya Carr RN - 02/28/2023 6:10 PM EDT Problem: Pain - Adult Goal: Verbalizes/displays adequate comfort level or baseline comfort level Outcome: Progressing Problem: Safety - Adult Goal: Free from fall injury Outcome: Progressing documented in this encounterSCleveland Clinic South Pointe [id number] Note* Care Coordination - Unknown Case Management - 03/03/2023 11:20 AM EDT Patient Choice Patient Name: RADHA SANDOVAL Date of : 1945 All Providers Sent Referral Name: [facility] SNF Address: [address] [place], [place] [id number] Name: [facility] Address: [address] [place] [address] [id number] Note* Care Coordination - Laura Jackson RN - 03/03/2023 9:33 AM EDT Spoke with pt at bedside regarding POA, pt states she is not interested at this time to complete itand would consider completing at [facility] - did call Rafaela at [facility] to update her as well. [place] [id number] Note* Care Coordination - COLT Hill - 03/03/2023 8:41 AM EDT Transportation arranged through [facility] by cot set for 10 am pick and shovel worker. Will notify RN and TCC of this in rounds. Notified patient's son via phone of transportation time. SW remains available if any other needs concerns arise. [id number] Note* Care Coordination - Laura Jackson RN - 03/03/2023 7:29 AM EDT Insurance auth obtained for [facility], updated Dr Finch notified via [employer]. [id number] Note* Care Coordination - Laura Jackson RN - 03/02/2023 11:15 AM EDT Received a call from Rafaela at [facility], they are able to accept, pt agreeable. 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 [facility] at this time [id number] NoteHospitalist Progress Note 03/02/2023 [phone]: Please secure chat me for patient care issues. [phone]: Please secure chat [facility] Hospitalist for any issues. Subjective: Admit Date: 02/28/2023 PCP: Shiv Lopez MD Room#: B1-153/B1-153 A Interval History: Tolerating diet. Remains weak. Still urinating frequently. She denies chest pain, sob, cough, abdominal pain, nausea, vomiting, diarrhea, constipation, fevers, or chills. D/w pt Adult diet Regular; Low Sodium (2 gm); 4 carb choices (60 gm/meal) @[id number]@ 24HR INTAKE/OUTPUT: No intake or output data [...] Information Primary Emergency Contact: Angel Roger Address: [address] of [place] Relation: Child GABRIELLE FINCH MD Division of Hospitalist Medicine (more content not included)...[facility]09-14-2023 Note* Care Coordination - Ester Lipscomb - 03/02/2023 8:40 AM EDT [facility] per TCC request. Await review and response regarding ability to accept. TCC notified. [id number] NoteRef[facility] TCC request. Await review and response regarding ability to accept. TCC notified. [facility]09-14-2023 Note* Care Coordination - Laura Jackson RN - 03/02/2023 8:21 AM EDT Spoke with pt agreeable for referral to [facility] snf and apostolic, RETAIL ASSOCIATE tasked to complete [id number] NoteSpoke with pt agreeable for referral to [facility] snf and apostolic, RETAIL ASSOCIATE tasked to complete [place] [address]-13-2023 Note* Home Care - Tasneem Anaya LPN - 03/01/2023 4:25 PM EDT Plasma Cutting 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 following case for Discharge Needs. Therapy states SNF, but Patient wants HC instead. [facility] LimaBkawct89-14-5341 Consult note* Rosalinda Burrows APRN - JORGE - 03/01/2023 2:34 PM EDT Images from the original note were not included. [facility] Wound Care CONSULT Note Radha Sandoval AGE: [...] Uncontrolled type 2 diabetes mellitus with hyperglycemia ([facility]) 01/16/2020 Morbidly obese ([facility]) 01/16/2020 Vitamin D deficiency 01/16/2020 Moderate [...] 12/07/2022 Performed by Avery Marshall DO at [facility] ENDOSCOPY EYE SURGERY Bilateral early [...] tablet 0 ergocalciferol (Vitamin D-2) 1.25 MG (42267 UT) capsule Take 1 capsule (1.25 mg) [...] Care to follow Please follow up at [facility] wound care center after hospital discharge. [...] reflectmy own independent evaluation of this patient. [facility] [id number] Consult note* ELSA Rosenbaum CNP - 03/01/2023 2:34 PM EDT Images from the original note were not included. [facility] Wound Care CONSULT Note Radha Sandoval AGE: [...] 12/07/2022 Performed by Avery Marshall DO at [facility] ENDOSCOPY EYE SURGERY Bilateral early [...] tablet 0 ergocalciferol (Vitamin D-2) 1.25 MG (29847 UT) capsule Take 1 capsule (1.25 mg) [...] Care to follow Please follow up at [facility] wound care [place] after hospital discharge. Thank you for the [...] from the original note were not included. [facility] Geriatric Medicine Inpatient Consult Service Admission Date: 02/28/2023 Admission Status: INPATIENT Chief Complaint: I couldn't get around and they directed me to the hospital because I was peeing constantly from that UTI. Reason for Appointment Geriatrics consulted for functional decline Assessment/Plan Principal Problem: LING (acute kidney injury) (CMS/HCC) ([facility]) Active Problems: Declining functional status Weakness [...] necessary I recommended follow up at our [facility] at [phone]. Call in 2 weeks for memory (re)testing once acute issue(s) resolve - order placed in [facility] for follow-up Other I deferred full MMSE [...] accidents, getting lost. Knows she's here at [facility] due to UTI. States she was [...] Healthcare Power ofAttorney: No Financial Power of Video Manager: No Living Will:No Code Status: DNRCCA - [...] HS, Gabrielle Finch MD, 16 Units at 03/01/237 levothyroxine (Synthroid, Levoxyl) tablet 150 mcg, 150 [...] 12/07/2022 Performed by Avery Marshall DO at [facility] ENDOSCOPY EYE SURGERY Bilateral early [...] Limits Permission given to speak with patient accounting representative/caregiver as indicated: Yes Confirmation of Payer with patient/family: Yes Payer Name: [employer] Slater: No Confirmation of Primary Care Physician: Confirmed [...] Daily Living Prescription Coverage: Yes Pharmacy Used: [facility] Medication Management: Independent Transportation/Shopping: Independent Transportation Mode: [...] recommendations communicated to primary service I used [employer] secure messaging to message Dr. Finch on 03/01/23 at 12:35 to notify that geriatrics consult note has been completed and to page or call my personal cell with any questions. * Michelle Valle RN - 03/01/2023 9:33 AM EDTAssociated Order(s): IP CONSULT TO PAPER HANGER This patient is not a new diabetic or new to insulin therapy and therefore does not meet our current criteria for the inpatient diabetes education service. The clinical bedside RN should provide any necessary diabetes education using the Diabetes SurvivalSkills Booklet available on the unit. Please consider a dietary consult if appropriate and if not already ordered. Contact [facility] to [facility] pharmacist for assistance if a new glucometer or any associated supplies are needed. Thank you. Elder MUÑOZ,BSN,[facility] * Jelly Paz, MULTIPLE PRESSURE RIVETER OPERATOR - [facility] - 03/01/2023 8:03 AM EDTAssociated Order(s): IP CONSULT TO ENDOCRINOLOGY Department of Internal Medicine Division of Endocrinology, Diabetes, & Metabolism Endocrinology Note Patient Name: Radha Sandoval : 1945 AGE: 77 y.o. Room/Bed: [facility]/[address] Admission Date: 02/28/2023 Visit Date: 03/01/2023 Reason for Endocrine Consult: DM-Uncontrolled Provider/Team Requesting Consult: Dr. Finch PCP: Shiv Lopez MD Outpt Energy Advisor: No ASSESSMENT: Type II diabetes with hyperglycemia, with penitentiary insulin use Postoperative hypothyroidism PLAN: Humalog 6 [...] diagnosis. She has been having diarrhea in 6430-1208, smt severe Glimepiride- started in 2015 Trulicity [...] CHOLHDLRATIO 4 02/16/2021 No results found for: [id number] Lab Results Component Value Date TSH 0.03 (L) 02/27/2023 Radiology reportsas per the Radiologist Radiology: CT abdomen pelvis wo IV contrast Result Date: 02/28/2023 Patient Name: RADHA SANDOVAL : 1945 [facility]#: [id number] ExamDate/Time: 02/28/2023 13:07 Procedure: CT ABDOMEN PELVIS [...] 12/07/2022 Performed by Avery Marshall DO at [facility] ENDOSCOPY EYE SURGERY Bilateral early [...] date of this note. documented in this [facility]09-13-2023 NoteHospitalist Progress Note 03/01/2023 [phone]: Please secure chat me for patient care issues. [phone]: Please secure chat [facility] [...] (2 gm); 4 carb choices (60 gm/meal) @[id number]@ 24HR INTAKE/OUTPUT: No intake or output data [...] Information Primary Emergency (more content not included)...[facility] 03-01-2023 Hospital Discharge instructions* Discharge Instructions* [...] Extended Emergency Contact Information Primary Emergency Contact: KanaNicolahalinamario Address: [address] [place] Relation: Child Past Surgical History: Past Surgical History: Procedure Laterality Date APPENDECTOMY CHOLECYSTECTOMY 1979 COLONOSCOPY 06/19/2008 COLONOSCOPY W/ BIOPSIES AND POLYPECTOMY N/A 12/07/2022 Performed by Avery Marshall DO at [facility] ENDOSCOPY EYE SURGERY Bilateral early [...] List * (Principal) LING (acute kidney injury) ([facility]/HCC) (HCC) 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) DDD (degenerative disc disease), lumbar Chronic right-sided low back pain with right-sided sciatica Urinary frequency Chronic left shoulder pain Other chronic sinusitis Gastrointestinal bleed Hypokalemia Wound of right buttock Acute cystitis with hematuria Diarrhea Declining functional status Weakness Anxiety (Chronic) Polypharmacy (Chronic) DNR (do not resuscitate) Dependent edema Uncontrolled type 2 diabetes mellitus with hyperglycemia (HCC) Morbidly obese (HCC) Vitamin D deficiency Moderate episode of recurrent major depressive disorder (HCC) OAB (overactive bladder) Localized edema Insomnia Dyspnea on exertion Muscle spasms of both lower extremities Chronic renal insufficiency, stage III (moderate) (HCC) Restless legs syndrome (RLS) Hyperlipidemia with target [...] assistance Toileting Minimal assistance Feeding Minimal assistance Ticketer Minimal assistance Med Delivery yes Wound Care Documentation and Therapy: Wound/Incision 02/15/23 Pressure Injury Buttock Right;Midline (Active) Site Assessment Blanchable erythema;Clean;Dry;[place];Red 03/02/23 1100 Wound Length (cm) 1 cm [...] Score: @READMISSIONRISKDETAILS@ Discharging to Facility/ Agency Name: [place] [id number] Open 24 hours Dialysis Facility (if applicable) Name: Address: Dialysis Schedule: Phone: Fax: Maintenance Services Dispatcher/Tablet 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 signature: ICIAN SECTION Prognosis: good Condition at Discharge: stable Rehab Potential (if transferring to Rehab): excellent Recommended Labs or Other Treatments After Discharge: BMP/CBC in one week. [facility] ac and hs Physician Certification: I certify the above information and transfer of Radha Sandoval is necessary for the continuing treatment of the diagnosis listed and that she requires jail facility for less than 30 days. Update Admission H&P: No change in H&P PHYSICIAN SIGNATURE: documented in this [facility]09-13-2023 Consult note* Adam Holt MD - 03/01/2023 11:26 AM EDTAssociated Order(s): IP CONSULT TO GERIATRICS Images from the original note were not included. [facility] Geriatric Medicine Inpatient Consult Service Admission Date: 02/28/2023 Admission Status: INPATIENT Chief Complaint: I couldn't get around and they directed me to the hospital because I was peeing constantly from that UTI. Reason for Appointment Geriatrics consulted for functional decline Assessment/Plan Principal Problem: LING (acute kidney injury) (CMS/HCC) ([facility]) Active Problems: Declining functional status Weakness [...] necessary I recommended follow up at our [facility] at [phone]. Call in 2 weeks for memory (re)testing once acute issue(s) resolve - order placed in [facility] for follow-up Other I deferred full MMSE [...] accidents, getting lost. Knows she's here at [facility] due to UTI. States she was [...] Healthcare Power ofAttorney: No Financial Power of Video Manager: No Living Will:No Code Status: DNRCCA - [...] HS, Gabrielle Finch MD, 16 Units at 03/01/23756 levothyroxine (Synthroid, Levoxyl) tablet 150 mcg, 150 [...] 12/07/2022 Performed by Avery Marshall DO at [facility] ENDOSCOPY EYE SURGERY Bilateral early [...] LATHA VIANCA High Blood Pressure Father LATHA VIANCA Asthma Father LATHA COLEY Hypertension Father LATHA COLEY Diabetes Brother CATRACHO COLEY Family Status Relation Name Status Mother GHANSHYAM COLEY Father LATHA COLEY Brother CATRACHO VIANCA (Not Specified) Parents are as above Review [...] Limits Permission given to speak with patient accounting representative/caregiver as indicated: Yes Confirmation of Payer [...] Prescription Coverage: Yes Pharmacy Used: [facility] Medication Management: Independent Transportation/Shopping: Independent Transportation Mode: [...] recommendations communicated to primary service I used [employer] messaging to message Dr. Finch on 03/01/23 at 12:35 to notify that geriatrics consult note has been completed and to page or call my personal cell with any questions. [facility] [id number] Note* Care Coordination - Laura Jackson RN - 03/01/2023 10:14 AM EDT Care Managment Initial Assessment Date: 03/01/2023 Patient Name: Radha Sandoval : 1945 Patient Information Source of Information: Patient Cognition/Language: WFL - Within Functional Limits Permission given to speak with patient accounting representative/caregiver as indicated: Yes Confirmation of Payer [...] Prescription Coverage: Yes Pharmacy Used: [facility] Medication Management: Independent Transportation/Shopping: Independent Transportation Mode: [...] and follow as needed. Laura Jackson RN [facility] [id number] Consult note* Michelle Valle RN - 03/01/2023 9:33 AM EDT Associated Order(s): IP CONSULT TO PAPER HANGER This patient is not a new diabetic or new to insulin therapy and therefore does not meet our current criteria for the inpatient diabetes education service. The clinical bedside RN should provide any necessary diabetes education using the Diabetes SurvivalSkills Booklet available on the unit. Please consider a dietary consult if appropriate and if not already ordered. Contact [facility] pharmacist for assistance if a new glucometer or any associated supplies are needed. Thank you. Elder MUÑOZ,BSN,[facility] LimaMzuwpa46-62-0151 Consult note* Jelly Paz, MULTIPLE PRESSURE RIVETER OPERATOR - ROLL SETTER - 03/01/2023 8:03 AM EDTAssociated Order(s): IP CONSULT TO ENDOCRINOLOGY Department of Internal Medicine Division of Endocrinology, Diabetes, & Metabolism Endocrinology Note Patient Name: Radha Sandoval : 1945 AGE: 77 y.o. Room[facility]Bed: [facility] Admission Date: 02/28/2023 Visit Date: 03/01/2023 Reason for Endocrine Consult: DM-Uncontrolled Provider/Team Requesting Consult: Dr. Finch PCP: Shiv Lopez MD Outpt Energy Advisor: No ASSESSMENT: Type II diabetes with hyperglycemia, with penitentiary insulin use Postoperative hypothyroidism PLAN: Humalog 6 [...] diagnosis. She has been having diarrhea in 1863-5918, smt severe Glimepiride- started in 2015 Trulicity [...] CHOLHDLRATIO 4 02/16/2021 No results found for: [id number] Lab Results Component Value Date TSH 0.03 (L) 02/27/2023 Radiology reportsas per the Radiologist Radiology: CT abdomen pelvis wo IV contrast Result Date: 02/28/2023 Patient Name: RADHA SANDOVAL : 1945 [facility]#: [id number] ExamDate/Time: 02/28/2023 13:07 Procedure: CT ABDOMEN PELVIS [...] 12/07/2022 Performed by Avery Marshall DO at [facility] ENDOSCOPY EYE SURGERY Bilateral early [...] state/prognosis on the date of this note. [facility] [id number] NoteProblem: Pain - Adult Goal: Verbalizes/displays adequate comfort level or baseline comfort level Outcome: Progressing Problem: Safety - Adult Goal: Free from fall injury [facility] Plan of care note* Care Plan - Anaya Carr RN - 02/28/2023 6:10 PM EDT Problem: Pain - Adult Goal: Verbalizes/displays adequate comfort level or baseline comfort level Outcome: Progressing Problem: Safety - Adult Goal: Free from fall injury Outcome: Progressing [facility] LimaKrjnxi29-09-4833 History and physical note* Gabrielle Finch MD [...] 12/07/2022 Performed by Avery Marshall DO at [facility] ENDOSCOPY EYE SURGERY Bilateral early [...] None Comment: W/ UNTIL HIS ADMITTANCE TO SNF Other Topics Concern Not on file Social [...] tablet 0 ergocalciferol (Vitamin D-2) 1.25 MG (17644 UT) capsule Take 1 capsule (1.25 mg) [...] Primary Emergency Contact: Angel Roger Address: [address] [place] Relation: Child Code status: Prior [...] H&P to the patient's PCP. Thank you. [facility] [id number] NoteAttending History and Physical Admit Date: 02/28/2023 [...] 12/07/2022 Performed by Avery Marshall DO at [facility] ENDOSCOPY EYE SURGERY Bilateral early [...] None Comment: W/ UNTIL HIS ADMITTANCE TO SNF Other Topics Concern Not on file Social [...] tablet 0 ergocalciferol (Vitamin D-2) 1.25 MG (07796 UT) capsule Take 1 capsule (1.25 mg) [...] (150 mcg) by m (more content not included)...[facility]09-12-2023 History and physical note* Gabrielle Finch [...] 12/07/2022 Performed by Avery Marshall DO at [facility] ENDOSCOPY EYE SURGERY Bilateral early [...] None Comment: W/ UNTIL HIS ADMITTANCE TO SNF Other Topics Concern Not on file Social [...] tablet 0 ergocalciferol (Vitamin D-2) 1.25 MG (09873 UT) capsule Take 1 capsule (1.25 mg) [...] Primary Emergency Contact: Angel Roger Address: [address] [place] Relation: Child Code status: Prior [...] patient's PCP. Thank you. documented in this [facility]09-12-2023 Emergency department Note* Tasneem Whaley MD - 02/28/2023 11:28 AM EDT [facility] MED SURG EMERGENCY DEPARTMENT ENCOUNTER Pt Name: [...] 12/07/2022 Performed by Avery Marshall DO at [facility] ENDOSCOPY EYE SURGERY Bilateral early [...] shoulder pain ergocalciferol (Vitamin D-2) 1.25 MG (10255 UT) capsule Take 1 capsule (1.25 mg) [...] None Comment: W/ UNTIL HIS ADMITTANCE TO SNF Social Determinants of Health Financial Resource Strain: [...] min Stress: No Stress Concern Present (02/28/2023) [employer] - Occupational Stress Questionnaire [...] 1,000 mL (0 mL IntraVENous Stopped 02/28/23 145) insulin regular (HumuLIN R,NovoLIN R) injection 10 [...] Problems Addressed: LING (acute kidney injury) (CMS/HCC) ([facility]): complicated acute illness or injury Pyelonephritis: [...] 03/02/23 0025 Pyelonephritis LING (acute kidney injury) ([facility]) ([facility]) CONSULTS: IP CONSULT TO ENDOCRINOLOGY IP CONSULT TO GERIATRICS IP CONSULT TO [facility] TO CONSULT INSOMNIA PROCEDURES: Unless otherwise noted below, none Procedures FINAL IMPRESSION 1. LING (acute kidney injury) ([facility]) ([facility]) 2. Pyelonephritis 3. Polypharmacy 4. Insomnia, unspecified type 5. Pressure ulcer of right buttock, stage 3 ([facility]) DISPOSITION/PLAN DISPOSITION Admit 02/28/2023 03:42:32 PM PATIENT REFERRED TO: [facility] Geriatrics [facility] [address] [facility] [address] [facility] [address] DISCHARGE MEDICATIONS: Current Discharge Medication List @[facility]([id number]:LAST:1)@ (Please note: Portions of this note were [...] urination. Was recently admitted. documented in this [facility]09-12-2023 Emergency department Triage note* Farrah Londono RN - 02/28/2023 11:28 AM EDT Pt presents for admission per her PCP. Was sent to get kidneys evaluated per pt. Pt endorses lower back pain and burning and pain with urination. Was recently admitted. [id number] Physician Emergency department Note* Tasneem Whaley MD - 02/28/2023 11:28 AM EDT [facility] 1E MED SURG EMERGENCY DEPARTMENT [...] 12/07/2022 Performed by Avery Marshall DO at [facility] ENDOSCOPY EYE SURGERY Bilateral early [...] shoulder pain ergocalciferol (Vitamin D-2) 1.25 MG (83520 UT) capsule Take 1 capsule (1.25 mg) [...] LATHA VIANCA High Blood Pressure Father LATHA VIANCA Asthma Father LATHA VIANCA Hypertension Father LATHA VIANCA Diabetes Brother CATRACHO [...] None Comment: W/ UNTIL HIS ADMITTANCE TO SNF Social Determinants of Health Financial Resource Strain: [...] min Stress: No Stress Concern Present (02/28/2023) [employer] - Occupational Stress Questionnaire [...] Problems Addressed: LING (acute kidney injury) (CMS/HCC) ([facility]): complicated acute illness or injury Pyelonephritis: complicated acute illness or injury Amount and/or Complexity of Data Reviewed Labs: ordered. Decision-making details documented in ED Course. Radiology: ordered. Decision-making details documented in ED Course. Risk OTC drugs. Prescription drug management. Decision regarding hospitalization. . All independent interpretations of EKGs are documented in [facility]. ED Course as of 03/02/23 0025 e Feb 28, 2023 1332 SODIUM(!): 130 [BJ] 1332 [...] 03/02/23 0025 Pyelonephritis LING (acute kidney injury) ([facility]) ([facility]) CONSULTS: IP CONSULT TO ENDOCRINOLOGY IP CONSULT TO GERIATRICS IP CONSULT TO [facility] TO CONSULT INSOMNIA PROCEDURES: Unless otherwise noted below, none Procedures FINAL IMPRESSION 1. LING (acute kidney injury) ([facility]) ([facility]) 2. Pyelonephritis 3. Polypharmacy 4. Insomnia, unspecified type 5. Pressure ulcer of right buttock, stage 3 ([facility]) DISPOSITION/PLAN DISPOSITION Admit 02/28/2023 03:42:32 PM PATIENT REFERRED TO: [facility] Geriatrics [address] [facility] [facility] [address] [facility] [address] DISCHARGE MEDICATIONS: Current Discharge Medication List @[facility]([id number]:LAST:1)@ (Please note: Portions of this note were completed with a voice recognition program. Efforts were made to edit the dictations but occasionally words and phrases are mis-transcribed.) Form [id number] Tasneem Whaley MD (electronically signed) Emergency Medicine Provider Tasneem Whaley MD 03/02/23 0025 [facility]imaXgjwes12-97-0200 Telephone encounter Note* Telephone Encounter - ELSA Arriaza CNP - 02/28/2023 8:30 AM EDT Noted. Patient already notified. See previous TE if needed. [facility] LimaDdkybm07-57-2300 Miscellaneous Notes* Telephone Encounter - ELSA Arriaza CNP - 02/28/2023 8:30 AM EDT Noted. Patient already notified. See previous TE if needed. * Telephone Encounter - Imelda Mann RN - 02/28/2023 7:15 AM EDT S: Christine from [facility] [phone] spoke with CAC nurse regarding critical lab [...] results Protocols used: PCP Call - No [id number] documented in this encounterSCleveland Clinic South Pointe HospitalXrrlvk94-29-0741 Telephone encounter Note* Telephone Encounter - Imelda Mann RN - 02/28/2023 7:15 AM EDT S: Christine from [facility] [phone] spoke with CAC nurse regarding critical lab [...] results Protocols used: PCP Call - No [id number] [facility]imaVbhdou02-46-2073 Evaluation + Plan note* Assessment & Plan Note - ELSA Arriaza CNP - 02/27/2023 5:18 PM EDTAssociated Problem(s): Diarrhea No fever or chills, abdomen soft. Unknown etiology. Will check CBC and CMP. Consider stool culture if symptoms continue [facility]imaPzhrhi85-58-7501 Miscellaneous Notes* Assessment & Plan Note - [...] infection we will treat documented in this encounterSCleveland Clinic South Pointe HospitalLsjxjy84-16-8000 Evaluation + Plan note* Assessment & Plan Note - ELSA Arriaza CNP - 02/27/2023 5:17 PM EDTAssociated Problem(s): Chronic renal insufficiency, stage III (moderate) ([facility]) We will check CMP today [facility] LimaZysezk51-93-8679 Evaluation + Plan note* Assessment & Plan Note - ELSA Arriaza CNP - 02/27/2023 5:17 PM EDTAssociated Problem(s): Acute cystitis with hematuria UA positive nitrites and leuks moderate blood, will start antibiotic therapy sent for culture [facility]imaPdkcan65-88-6092 Evaluation + Plan note* Assessment & Plan Note - ELSA Arriaza CNP - 02/27/2023 5:17 PM EDTAssociated Problem(s): Hypertension Controlled. Continue amlodipine 10 mg daily and lisinopril 40 mg daily [facility] LimaUxwcxi19-14-1235 Evaluation + Plan note* Assessment & Plan Note - ELSA Arriaza CNP - 02/27/2023 5:16 PM EDTAssociated Problem(s): Hypothyroidism Will check TSH today due to recent fatigue [facility] LimaFxcauc90-45-1153 Evaluation + Plan note* Assessment & Plan Note - ELSA Arriaza CNP - 02/27/2023 5:15 PM EDTAssociated Problem(s): Wound of right buttock Patient has not followed up with wound center upon visualization today wound unchanged, advised to keep area as clean as possible with frequent changes of incontinence pads [facility]imaZxcgsg45-05-2513 Evaluation + Plan note* Assessment & Plan Note - ELSA Arriaza CNP - 02/27/2023 5:14 PM EDTAssociated Problem(s): 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 Patient having difficulties with compliance. Continue insulin regimen. Possible increased glucose due to urinary tract infection we will treat [facility]imaWhgzsr40-56-3287 History of Present illness Narrative* Magda Lomas - 02/27/2023 2:20 PM EDT Patient was identified by name and Date of . POCT glucose at 494-provider notified. * Katia Granados, MULTIPLE PRESSURE RIVETER OPERATOR - ROLL SETTER - 02/27/2023 2:20 PM EDT Images from [...] her blood sugar today, noted In office gpxyo-ra-zxqu testing 494. Urination Increased frequency, dysuria intermittently. [...] out soon. Has Maximino (son) work in [employer]. He may be able to help her out. Prior to Admission medications Medication Sig Start Date End Date Taking? Authorizing Provider albuterol 108 (90 Base) MCG/ACT inhaler Inhale 2 puffs every 6 hours as needed for wheezing. Yes Historical Provider, amLODIPine (Norvasc) 10 MG tablet Take 1 tablet (10 mg) by mouth daily. 12/08/22 Yes LESA Arriaza CNP baclofen (Lioresal) 10 MG tablet Take 1 tablet (10 mg) by mouth daily. 02/14/23 Yes Shiv Lopez MD ergocalciferol (Vitamin D-2) 1.25 MG (28261 UT) capsule Take 1 capsule (1.25 mg) by mouth 1 (one) time per week. 01/13/23 Yes ELSA Arriaza CNP Glucose Blood (Blood Glucose Test) strip 4 times daily. 01/10/22 Yes Historical ProviderMD insulin aspart (NovoLOG FLEXPEN) 100 UNIT/ML pen [...] 12/08/22 Yes Katia Granados APRN - JORGE meloxicam (Mobic) 7.5 [...] mouth daily. 12/08/22 Yes ELSA Arriaza CNP hydrOXYzine HCl (Atarax) 25 MG tablet Take [...] CNP 02/27/2023 5:19 PM documented in this encounterSCleveland Clinic South Pointe HospitalOthdmx18-17-7748 Evaluation note* Diagnosis Diabetes mellitus due to [...] Diarrhea, unspecified type documented in this encounter [facility]imaUtvvha70-12-9829 Telephone encounter Note* Telephone Encounter - Nan [...] seen Protocols used: Diabetes - High Blood Xsidx-OSDML-VV [facility]imaXorzzs18-33-4434 Miscellaneous Notes* Telephone Encounter - Nan Bush [...] seen Protocols used: Diabetes - High Blood Rcrwm-FHMSE-ZN documented in this [facility]08-30-2023 Hospital Discharge instructions* Patient Instructions* Tejal Henry RN - 02/15/2023 12:45 PM EDT Return in [address] Magallanes If you have any questions or concerns, please call our wound center at [phone] or [phone]. Offloading Try to avoid pressure and sheering [...] to help improve healing. documented in this [facility]08-30-2023 [facility] Care Visit - New Patient [...] 12/07/2022 Performed by Avery Marshall DO at [facility] ENDOSCOPY EYE SURGERY Bilateral early [...] Rfl: 0 ergocalciferol (Vitamin D-2) 1.25 MG (63708 UT) capsule, Take 1 capsule (1.25 mg) [...] None Comment: W/ UNTIL HIS ADMITTANCE TO SNF Other Topics Concern Not on file Social [...] Pressure Father LATHA (more content not included)...[facility]08-22-2023 Evaluation + Plan note* Assessment & Plan Note - ELSA Arriaza CNP - 02/07/2023 12:51 PM EDTAssociated Problem(s): Chronic left shoulder pain Chronic. Refill mobic. [facility]imaQypjvp71-08-8095 Evaluation + Plan note* Assessment & Plan Note - ELSA Arriaza CNP - 02/07/2023 12:51 PM EDTAssociated Problem(s): Wound of right buttock Avoid pressure to area, avoid friction, keep area as dry as possible. Refer to wound clinic. [facility]imaQzxqnt12-58-5936 Miscellaneous Notes* Assessment & Plan Note - ELSA Arriaza CNP - 02/07/2023 12:51 PM EDTAssociated Problem(s): Chronic left shoulder pain Chronic. Refill mobic. * Assessment & Plan Note - ELSA Arriaza CNP - 02/07/2023 12:51 PM EDTAssociated Problem(s): Wound of right buttock Avoid pressure to area, avoid friction, keep area as dry as possible. Refer to wound clinic. documented in this [facility]08-22-2023 History of Present illness Narrative* ELSA Arriaza [...] care provider as scheduled. SUBJECTIVE/OBJECTIVE: HPI - Radah Sandoval (: 1945) is a 77 y.o. [...] Arriaza CNP ergocalciferol (Vitamin D-2) 1.25 MG (52843 UT) capsule Take 1 capsule (1.25 mg) [...] VERIFIED WITH PATIENT-BRENDA RIVERA. documented in this encounterSCleveland Clinic South Pointe HospitalPyqnlt61-74-4010 Telephone encounter Note* Telephone Encounter - Betty Gonzalez MA - 01/25/2023 3:01 PM EDT Patient notified. [facility]imaPygfmi49-39-1832 Miscellaneous Notes* Telephone Encounter - Betty Gonzalez [...] EDT S: The patient is calling the [facility] About muscle spasms B: She has [...] days Protocols used: Muscle Aches and Body Wnyj-HRAKV-AZ documented in this [facility]08-09-2023 Telephone encounter Note* Telephone Encounter - Shiv Lopez MD - 01/25/2023 2:39 PM EDT If the muscle spasms got worse with the muscle relaxer stop the muscle relaxer, I am not sure what else we can do especially if they have been going on for years. We could try quinine. [facility]imaGykhuk34-67-5836 Telephone encounter Note* Telephone Encounter - Colette Poole RN - 01/25/2023 1:23 PM EDT S: The patient is calling the [facility] About muscle spasms B: She has [...] days Protocols used: Muscle Aches and Body Rspg-ECBQA-RT [facility]imaJwmzgl62-86-9493 Telephone encounter Note* Telephone Encounter - ELSA Arriaza CNP - 01/13/2023 11:12 AM EDT Reviewed chart. Refill appropriate. RX sent. [facility]imaBgltbz57-56-0641 Miscellaneous Notes* Telephone Encounter - ELSA Arriaza CNP - 01/13/2023 11:12 AM EDT Reviewed chart. Refill appropriate. RX sent. * Telephone Encounter - Mya oFster MA - 01/13/2023 8:52 AM EDT Prescription Request: Last medication check: 10/25/2022 Last physical exam: 04/26/2022 Last completed appointment: 12/13/22 Next scheduled appointment: 01/25/2023 Last date of refill on this medication: Mirapex 12/13/22, baclofen and synthroid 12/08/22, vit D 07/18/2022 documented in this encounterSCleveland Clinic South Pointe HospitalNwodfo42-24-8106 Telephone encounter Note* Telephone Encounter - Mya Foster MA - 01/13/2023 8:52 AM EDT Prescription Request: Last medication check: 10/25/2022 Last physical exam: 04/26/2022 Last completed appointment: 12/13/22 Next scheduled appointment: 01/25/2023 Last date of refill on this medication: Mirapex 12/13/22, baclofen and synthroid 12/08/22, vit D 07/18/2022 [facility]imaDuzqop62-56-0909 Telephone encounter Note* Telephone Encounter - ELSA Arriaza CNP - 12/08/2022 5:20 PM EDT Reviewed chart. Refill appropriate. RX sent. [facility]imaPtifew24-34-4582 Miscellaneous Notes* Telephone Encounter - ELSA Arriaza [...] 90 day 1 refill documented in this encounterSCleveland Clinic South Pointe HospitalSdyagx93-36-3525 Telephone encounter Note* Telephone Encounter - Syl Kumar MA - 12/08/2022 1:53 PM EDT Prescription Request: Last medication check: 10/25/22 Last physical exam: 04/26/22 Next scheduled appointment: 01/25/23 CSA on file (date): 02/02/22 Last urine drug screen: none Last date of refill on this medication Baclofen 10/04/22 30 tablets no refill Levothyroxine 10/04/22 30 day 1 refill Crestor 06/14/22 90 day 1 refill [facility]imaYrrauz81-77-5801 Plan of care note* Care Plan - [...] integrity is maintained or improved Outcome: Completed [place] [id number] Miscellaneous Notes* Care Plan - Lambert Kaur [...] Please call the Main Endoscopy Dept at [phone] for questions. * Op Note - Avery Marshall DO - 12/07/2022 7:48 AM EDT [facility] Name: Radha Sandoval Procedure Date: 12/07/2022 7:48 AM Gender: Female Date of : 1945 Age: 77 Admit Type: Inpatient Note Status: Finalized Endoscopist: Avery Marshall DO, [id number] Procedure: Colonoscopy Indications: Hematochezia Findings: The perianal [...] immediate complications. Procedure Code(s): --- Professional --- 65962, Colonoscopy, flexible; with removal of tumor(s), polyp(s), or other lesion(s) by snare technique --- Technical --- 72220, Colonoscopy, flexible; with removal of tumor(s), polyp(s), [...] or abscess without bleeding CPT copyright 2021 [employer]. All rights reserved. The codes documented in this report are preliminary and upon gas welder apprentice review may be revised to meet current [...] Limits Permission given to speak with patient accounting representative/caregiver as indicated: Yes Confirmation of Payer [...] Prescription Coverage: Yes Pharmacy Used: [facility] Medication Management: Independent Transportation/Shopping: Independent Transportation Mode: [...] needed. Laura Jackson RN documented in this [facility]06-21-2023 Hospital Discharge instructions* Discharge Instr - Activity* Gabrielle Finch MD - 12/07/2022 1:48 PM EDT As tolerated * Discharge Instr - Diet* Gabrielle Finch MD - 12/07/2022 1:49 PM EDT Carb control diet documented in this [facility]06-21-2023 Hospital course Narrative* Gabrielle Finch MD - 12/07/2022 1:30 PM EDT Seen and examined. Full note to follow documented in this [facility]06-21-2023 Note* Care Coordination - Laura Jackson RN [...] Stay (Days): 2 GMLOS: No GMLOS Documented [address]Irgter38-53-2908 Note* Care Coordination - Laura Jackson RN [...] Stay (Days): 2 GMLOS: No GMLOS Documented [facility]imaNfxfcs83-95-4741 Note* Perioperative Nursing Note - Ashley Dickens RN - 12/07/2022 9:57 AM EDT POST ENDOSCOPY PROCEDURE TRANSFER REPORT Physician: Dr. Marshall Procedure completed: colonoscopy Specimens obtained: Yes Medications administered: See MAR Findings: see MD report Complications: none Please call the Main Endoscopy Dept at [phone] for questions. T [facility]imaHpytof63-37-9284 Note* Perioperative Nursing Note - Ashley Dickens RN - 12/07/2022 9:57 AM EDT POST ENDOSCOPY PROCEDURE TRANSFER REPORT Physician: Dr. Gellis Procedure completed: colonoscopy Specimens obtained: Yes Medications administered: See MAR Findings: see MD report Complications: none Please call the Main Endoscopy Dept at [phone] for questions. [facility]imaBusfpg68-15-8198 History of Present illness Narrative* Edelmira Hanna - 12/07/2022 7:58 AM EDT Patient has been NPO/ CLRS x3 days without adequate nutrition. Patient referred to RD. * Lani Che KNOT CUTTER - 12/06/2022 5:38 PM EDT [facility] Respiratory Care Department Progress Note As [...] note were not included. Hospitalist Progress Note 12/06/2022 [phone]: Please secure chat me for patient care issues. [phone]: Please secure chat [facility] Hospitalist for any issues. Subjective: Admit Date: 12/05/2022 PCP: Shiv Lopez MD Room#: [facility]148/[facility] A Interval History: She is weak. Still with bleeding. Not dizzy. She denies chest pain, sob, abdominal pain, nausea, vomiting, diarrhea, constipation, fevers, or chills. Awaiting colonoscopy. D/w pt Adult diet Clear Liquid NPO diet NPO except: Sips of Water with Meds @YNVB3LMHLCO@ 24HR INTAKE/OUTPUT: Intake/Output Summary (Last 24 hours) [...] Information Primary Emergency Contact: Angel Roger Address: [address] [place] Relation: Child GABRIELLE FINCH MD Division of Hospitalist Medicine [place] [facility] PAGER: Epic chat documented in this [facility]06-21-2023 Note* Op Note - Avery Marshall DO - 12/07/2022 7:48 AM EDT [facility] Patient Name: Radha Sandoval Procedure Date: 12/07/2022 7:48 AM Gender: Female Date of : 1945 Age: 77 Admit Type: Inpatient Note Status: Finalized Endoscopist: Avery Marshall DO, [id number] Procedure: Colonoscopy Indications: Hematochezia Findings: The perianal [...] immediate complications. Procedure Code(s): --- Professional --- 47691, Colonoscopy, flexible; with removal of tumor(s), polyp(s), or other lesion(s) by snare technique --- Technical --- 76247, Colonoscopy, flexible; with removal of tumor(s), polyp(s), [...] or abscess without bleeding CPT copyright 2021 [employer]. All rights reserved. The codes documented in this report are preliminary and upon gas welder apprentice review may be revised to meet current compliance requirements. Attending Participation: I personally performed the entire procedure. Avery Marshall DO 12/07/2022 9:46:22 AM This report has been signed electronically. Number of Addenda: 0 Note Initiated On: 12/07/2022 7:48 AM [email or web address] Phone: 1(178) 139-958706-21-2023 Note* Op Note - Avery Marshall DO - 12/07/2022 7:48 AM EDT [facility] Patient Name: Radha Sandoval Procedure Date: 12/07/2022 7:48 AM Gender: Female Date of : 1945 Age: 77 Admit Type: Inpatient Note Status: Finalized Endoscopist: Avery Marshall DO, [id number] Procedure: Colonoscopy Indications: Hematochezia Findings: The perianal [...] immediate complications. Procedure Code(s): --- Professional --- 62084, Colonoscopy, flexible; with removal of tumor(s), polyp(s), or other lesion(s) by snare technique --- Technical --- 31338, Colonoscopy, flexible; with removal of tumor(s), polyp(s), [...] or abscess without bleeding CPT copyright 2021 [employer]. All rights reserved. The codes documented in this report are preliminary and upon gas welder apprentice review may be revised to meet current compliance requirements. Attending Participation: I personally performed the entire procedure. Avery Marshall DO 12/07/2022 9:46:22 AM This report has been signed electronically. Number of Addenda: 0 Note Initiated On: 12/07/2022 7:48 AM [email or web address] Phone: 1(710) 192-851306-20-2023 Note* Care Coordination - Laura Jackson RN - 12/06/2022 10:36 AM EDT Care Managment Initial Assessment Date: 12/06/2022 Patient Name: Radha Sandoval : 1945 Patient Information Source of Information: Patient Cognition/Language: WFL - Within Functional Limits Permission given to speak with patient accounting representative/caregiver as indicated: Yes Confirmation of Payer [...] Prescription Coverage: Yes Pharmacy Used: [facility] Medication Management: Independent Transportation/Shopping: Independent Transportation Mode: [...] and follow as needed. Laura Jackson RN [facility]imaTkgsaf65-06-1233 Note* Care Coordination - Laura Jackson RN - 12/06/2022 10:36 AM EDT Care Managment Initial Assessment Date: 12/06/2022 Patient Name: Radha Sandoval : 1945 Patient Information Source of Information: Patient Cognition/Language: WFL - Within Functional Limits Permission given to speak with patient accounting representative/caregiver as indicated: Yes Confirmation of Payer [...] Prescription Coverage: Yes Pharmacy Used: [facility] Medication Management: Independent Transportation/Shopping: Independent Transportation Mode: [...] follow as needed. Laura Jackson RN T [facility]imaLrqfjy85-51-3557 Consult note* Malcolm Rodriguez MD - 12/06/2022 [...] Arriaza CNP ergocalciferol (Vitamin D-2) 1.25 MG (40083 UT) capsule Take 1 capsule (1.25 mg) [...] the patient/guardian/responsible accompanying adult who is agreeable. [facility] [employer] Phone: 1(859) 747-732406-20-2023 Consult note* Malcolm Rodriguez MD - 12/06/2022 [...] tablet (10 mg) by mouth daily. 10/04/22 KatiaELSA Wesley CNP ergocalciferol (Vitamin D-2) 1.25 MG (45995 UT) capsule Take 1 capsule (1.25 mg) [...] adult who is agreeable. documented in this [facility]06-19-2023 Emergency department Note* Abby Kahn RN - 12/05/2022 8:30 PM EDT Provided pt with water and jello Abby Herstine, RN 12/05/222200 [facility]imaEpdhbe98-05-3569 Emergency department Note* Abby Kahn RN - [...] point Abby Kahn RN 12/05/22 1733 * Abyb Kahn RN - 12/05/2022 4:58 PM EDT Pt had large bloody BM Abby Kahn RN 12/05/22 1658 * Abby Kahn RN - 12/05/2022 2:[address] stated they were unable to use US IV that was placed in R AC. PILOT BOAT CAPTAIN called to place a new IV Abby Kahn RN 12/05/22 1403 * ANASTASIA Molina - 12/05/2022 10:43 AM EDT [facility] ED eMERGENCY dEPARTMENT eNCOUnter Pt [...] mouth daily. ERGOCALCIFEROL (VITAMIN D-2) 1.25 MG (90838 UT) CAPSULE Take 1 capsule (1.25 mg) [...] LATHA COLEY High Blood Pressure Father LATHA VIANCA Asthma Father LATHA VIANCA Hypertension Father LATHA [...] None Comment: W/ UNTIL HIS ADMITTANCE TO SNF Social Determinants of Health Financial Resource Strain: [...] (*) Narrative: Performed by: [facility], [address] [place] [address] [place] [address] CLIA ID: [id number] HEPATIC FUNCTION PANEL - Normal BILIRUBIN, TOTAL [...] MEDICATIONS: New Prescriptions No medications on file @[facility]([id number]:LAST:1)@ (Please note: Portions of this note were completed with a voice recognition program. Efforts were made to edit thedictations but occasionally words and phrases are mis-transcribed.) Form v2016.J.5-cn ANASTASIA MOLINA (electronically signed) Emergency Medicine Provider ANASTASIA Molina 12/05/22 1748 * Anusha Velarde MD - 12/05/2022 10:43 AM EDT Emergency Department Encounter [facility] ED Patient: Radha Sandoval : [...] hx of GI bleed. documented in this [facility]06-19-2023 Nurse Note* Sis Archibald RN - 12/05/2022 8:[address] Durbin requesting 18g U/S IV placed d/t GIB. No suitable options for an 18g PIV to be placed at this time. Pt also refusing for Left arm to be used. Dr. Hammer notified. [place] [id number] Nurse Note* Sis Archibald RN - 12/05/2022 8:[address] Durbin requesting 18g U/S IV placed d/t GIB. No suitable options for an 18g PIV to be placed at this time. Pt also refusing for Left arm to be used. Dr. Hammer notified. documented in this [facility]06-19-2023 Emergency department Note* Abby Kahn RN - 12/05/2022 6:[address] Velarde notified pt has filled x 3 bedpan with bloody stools and clots Abby Kahn RN 12/05/22 1812 [address]Vnfira85-32-6038 Emergency department Note* Abby Kahn RN - 12/05/2022 5:10 PM EDT Ashley (ANASTASIA) made aware that pt has had 2 large bloody BM's at this point Abby Kahn RN 12/05/22 1733 [address]Vfiief84-54-0203 History and physical note* Bertram Durbin MD [...] None Comment: W/ UNTIL HIS ADMITTANCE TO SNF Other Topics Concern Not on file Social [...] tablet 0 ergocalciferol (Vitamin D-2) 1.25 MG (24055 UT) capsule Take 1 capsule (1.25 mg) [...] Information Primary Emergency Contact: Angel Roger Address: [address] [place] Relation: Child Code status: No Order [...] H&P to the patient's PCP. Thank you. [employer] Phone: [phone]) 720-403506-19-2023 History and physical note* Bertram Durbin MD [...] None Comment: W/ UNTIL HIS ADMITTANCE TO SNF Other Topics Concern Not on file Social [...] tablet 0 ergocalciferol (Vitamin D-2) 1.25 MG (04929 UT) capsule Take 1 capsule (1.25 mg) [...] Primary Emergency Contact: Angel Roger Address: [address] [place] Relation: Child Code status: No [...] patient's PCP. Thank you. documented in this [facility]06-19-2023 Emergency department Note* Abby Kahn RN - 12/05/2022 4:58 PM EDT Pt had large bloody BM Abby Kahn RN 12/05/22 0738 [facility]imaAiutcs92-17-9490 Emergency department Note* Abby Kahn RN - 12/05/2022 2:[address] stated they were unable to use US IV that was placed in R AC. PILOT BOAT CAPTAIN called to place a new IV Abby Kahn RN 12/05/22 1403 [facility]imaHkjxbv79-18-1184 Emergency department Triage note* Maday Borja RN - 12/05/2022 10:43 AM EDT Pt reports bright red blood with blood clots in her brief this AM, denies use of blood thinners or hx of GI bleed. [facility]imaMazjdz17-29-2842 Physician Emergency department Note* ANASTASIA Molina - 12/05/2022 10:43 AM EDT [facility] ED eMERGENCY dEPARTMENT eNCOUnter Pt [...] mouth daily. ERGOCALCIFEROL (VITAMIN D-2) 1.25 MG (57584 UT) CAPSULE Take 1 capsule (1.25 mg) [...] None Comment: W/ UNTIL HIS ADMITTANCE TO SNF Social Determinants of Health Financial Resource Strain: [...] 215 (*) Narrative: Performed by: [facility], [address] [place] [id number] CLIA ID: [id number] HEPATIC FUNCTION PANEL - Normal BILIRUBIN, TOTAL [...] I did discuss this case with Dr. Durbni and patient will be admitted to the [...] MEDICATIONS: New Prescriptions No medications on file @[facility](3708,[id number]:LAST:1)@ (Please note: Portions of this note were completed with a voice recognition program. Efforts were made to edit thedictations but occasionally words and phrases are mis-transcribed.) Form v2016.J.[id number] ANASTASIA MOLINA (electronically signed) Emergency Medicine Provider ANASTASIA Molina 12/05/22 1748 [facility]imaKztdxb36-44-3450 Physician Emergency department Note* Anusha Velarde MD - 12/05/2022 10:43 AM EDT Emergency Department Encounter [facility] ED Patient: Radha Sandoval : [...] Huerta MD 12/05/221637 Anusha Velarde MD 12/05/221851 [employer] Phone: [phone] 333-360206-19-2023 Telephone encounter Note* Telephone Encounter - ELSA Arriaza CNP - 12/05/2022 9:44 AM EDT Noted. Agree with disposition. [facility]imaXttwcc38-92-0745 Miscellaneous Notes* Telephone Encounter - ELSA Arriaza [...] drive her, states she will go to [place] ED. No further needs at this time. Patient instructed to call back with new or worsening symptoms. Advised to call 911 if she worsens or feels like she might pass out. Patient verbalizes understanding. Reason for Disposition SEVERE rectal bleeding (large blood clots; constant or on and off bleeding) Protocols used: Rectal Ichyahvf-YHNZT-LS documented in this encounterSCleveland Clinic South Pointe HospitalXycjbw04-29-9633 Telephone encounter Note* Telephone Encounter - Sruthi [...] drive her, states she will go to [facility]. No further needs at this time. Patient instructed to call back with new or worsening symptoms. Advised to call 911 if she worsens or feels like she might pass out. Patient verbalizes understanding. Reason for Disposition SEVERE rectal bleeding (large blood clots; constant or on and off bleeding) Protocols used: Rectal Dlbqwvil-SKQWD-YC [facility]imaFaawtr43-27-8857 Telephone encounter Note* Telephone Encounter - Mya Foster MA - 10/05/2022 3:55 PM EDT ----- Message from ELSA Arriaza CNP sent at 10/05/2022 3:52 PM EDT ----- Hemoglobin A1c 9- recommend increasing novolog dose by 2 units- (from 14 to 16), send glucose readings to office in 1 week. Notified, can you please update sig? Thanks! [facility]imaGihjda77-26-5456 Miscellaneous Notes* Telephone Encounter - Mya Foster MA - 10/05/2022 3:55 PM EDT ----- Message from ELSA Arriaza CNP sent at 10/05/2022 3:52 PM EDT ----- Hemoglobin A1c 9- recommend increasing novolog dose by 2 units- (from 14 to 16), send glucose readings to office in 1 week. Notified, can you please update sig? Thanks! documented in this [facility]02-24-2023 Telephone encounter Note* Telephone Encounter - Stefani Holli Abraham - 08/12/2022 9:38 AM EST Medication [...] prior to picking up the medication: Yes [facility]imaZpmzpv19-67-0370 Miscellaneous Notes* Telephone Encounter - Stefani Abraham [...] up the medication: Yes documented in this [facility]02-07-2023 Telephone encounter Note* Telephone Encounter - Shiv Lopez MD - 07/26/2022 8:29 AM EST Rx [id number] Miscellaneous Notes* Telephone Encounter - Shiv Lopez [...] (see medication tab): 05/03/2022 documented in this encounterSCleveland Clinic South Pointe [id number] Note* Addendum Note - Mya Foster MA - 07/26/2022 7:57 AM ESTAddended by: MYA FOSTER on: 07/26/2022 07:57 AM Modules accepted: Orders [id number] Note* Addendum Note - Mya Foster MA - 07/26/2022 7:57 AM ESTAddended by: MYA FOSTER on: 07/26/2022 07:57 AM Modules accepted: Orders [id number] Telephone encounter Note* Telephone Encounter - Georgette [...] of last refill (see medication tab): 05/03/2022 [facility]Jhmilf03-08-4533 Telephone encounter Note* Telephone Encounter - ELSA Arriaza CNP - 07/18/2022 9:56 AM EST Reviewed chart. Refill appropriate. RX sent. [id number] Miscellaneous Notes* Telephone Encounter - ELSA Arriaza CNP - 07/18/2022 9:56 AM EST Reviewed chart. Refill appropriate. RX sent. * Telephone Encounter - Magda Lomas - 07/18/2022 9:39 AM EST Prescription Request: Last medication check: 06/30/22 Last physical exam: 04/26/22 Next scheduled appointment: 09/30/22 Last date of refill on this medication 06/14/22 documented in this encounterSCleveland Clinic South Pointe [id number] Telephone encounter Note* Telephone Encounter - Magda Lomas - 07/18/2022 9:39 AM EST Prescription Request: Last medication check: 06/30/22 Last physical exam: 04/26/22 Next scheduled appointment: 09/30/22 Last date of refill on this medication 06/14/22 [id number] Telephone encounter Note* Telephone Encounter - Ashley Haider MA - 07/13/2022 1:06 PM EST Attempted to call patient to help her schedule an appt - the patient has a recording that says she is not accepting calls [id number] Miscellaneous Notes* Telephone Encounter - Ashley Haider [...] her 07/08 appt. Please advise. Office Name: [facility] Physician Orthopedics Medication Refills need, if any: N/A Medication Name: N/A documented in this [facility]01-25-2023 Telephone encounter Note* Telephone Encounter - Devendra Loera MD - 07/13/2022 11:10 AM EST Okay to reschedule stickK Phone: [phone] 969-519501-23-2023 Telephone encounter Note* Telephone Encounter - ELSA Arriaza CNP - 07/11/2022 2:11 PM EST Reviewed chart. Refill appropriate. RX sent. [facility] [id number] Miscellaneous Notes* Telephone Encounter - ESLA Arriaza CNP - 07/11/2022 2:11 PM EST Reviewed chart. Refill appropriate. RX sent. * Telephone Encounter - Mya Foster MA - 07/11/2022 2:02 PM EST Prescription Request: Last medication check: 08/05/21 Last physical exam: 04/26/22 Next scheduled appointment: 09/29/2022 Last date of refill on this medication 02/28/2022 documented in this [facility]01-23-2023 Telephone encounter Note* Telephone Encounter - Mya Foster MA - 07/11/2022 2:02 PM EST Prescription Request: Last medication check: 08/05/21 Last physical exam: 04/26/22 Next scheduled appointment: 09/29/2022 Last date of refill on this medication 02/28/2022 [id number] Telephone encounter Note* Telephone Encounter - Mya Foster MA - 07/11/2022 9:46 AM EST Notified. [id number] Miscellaneous Notes* Telephone Encounter - Mya Foster [...] to answer question Protocols used: Falls and Yspbsou-RHATO-TP documented in this encounterSCleveland Clinic South Pointe HospitalRwyspl19-48-9450 Telephone encounter Note* Telephone Encounter - Shiv Lopez MD - 07/08/2022 12:30 PM EST Rx sent for tramadol, she can take this with Tylenol, this is a one-time prescription and cannot berefilled because we are not chronic pain management physicians. [facility]imaMrgvij80-62-9914 Miscellaneous Notes* Telephone Encounter - Shiv Lopez [...] to answer question Protocols used: Falls and Xofievy-QLFOE-DO documented in this encounterSCleveland Clinic South Pointe HospitalPiqnwz59-18-4861 Telephone encounter Note* Telephone Encounter - Christine [...] to answer question Protocols used: Falls and Jtgwodf-EOZJS-YP [id number] Telephone encounter Note* Telephone Encounter - Katie Bernardo - 07/07/2022 5:48 PM EST Name of Caller: Radha Contact Reason for Appointment: Pt states that she would like to r/s her 07/08 appt. Please advise. Office Name: [facility] Physician Orthopedics Medication Refills need, if any: N/A Medication Name: N/A [id number] Evaluation + Plan note* Assessment & Plan Note - Shiv Lopez MD - 06/30/2022 12:54 PM ESTAssociated Problem(s): Hyperlipidemia with target LDL less than 70 Controlled, continue rosuvastatin 10 mg daily [facility]imaBqsgpt54-96-3903 Evaluation + Plan note* Assessment & Plan Note - Shiv Lopez MD - 06/30/2022 12:54 PM ESTAssociated Problem(s): Moderate episode of recurrent major depressive disorder (HCC) Stable, continue Paxil 20 mg daily [facility]imaOdtrjg84-05-4687 Evaluation + Plan note* Assessment & Plan Note - Shiv Lopez MD - 06/30/2022 12:54 PM ESTAssociated Problem(s): Chronic right-sided low back pain with right-sided sciatica Referral to orthopedic surgeon [facility]imaTqsxbv98-59-1671 Evaluation + Plan note* Assessment & Plan Note - Shiv Lopez MD - 06/30/2022 12:54 PM ESTAssociated Problem(s): Hypothyroidism Controlled, continue levothyroxine 150 mcg daily [facility]imaJuzyun68-17-4137 Miscellaneous Notes* Assessment & Plan Note - [...] current dose of Ambien documented in this [facility]01-12-2023 Evaluation + Plan note* Assessment & Plan Note - Shiv Lopez MD - 06/30/2022 12:53 PM EST Associated Problem(s): Vitamin D deficiency Stable, continue vitamin D 50,000 units weekly [facility]imaIqxcrs83-41-0235 Evaluation + Plan note* Assessment & Plan Note - Shiv Lopez MD - 06/30/2022 12:53 PM ESTAssociated Problem(s): Uncontrolled type 2 diabetes mellitus with hyperglycemia (HCC) Uncontrolled, continue NovoLog 14 units before each meal. 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 [address]12-2023 Evaluation + Plan note* Assessment & Plan Note - Shiv Lopez MD - 06/30/2022 12:52 PM ESTAssociated Problem(s): DDD (degenerative disc disease), lumbar This is a chronic issue we will send her to spine surgery for further evaluation. [facility]01-12-2023 Evaluation + Plan note* Assessment & Plan Note - Shiv Lopez MD - 06/30/2022 12:51 PM ESTAssociated Problem(s): Hypertension Blood pressure was initially elevated, recheck was normal, continue lisinopril 40 mg daily and amlodipine 10 mg daily [address]12-2023 Evaluation + Plan note* Assessment & Plan Note - Shiv Lopez MD - 06/30/2022 12:51 PM ESTAssociated Problem(s): Restless legs syndrome (RLS) Stable on current dose of Mirapex 2 mg nightly [address]12-2023 Evaluation + Plan note* Assessment & Plan Note - Shiv Lopez MD - 06/30/2022 12:51 PM ESTAssociated Problem(s): Insomnia Stable on current dose of Ambien [id number] History of Present illness Narrative* Syl Kumar MA - 06/30/2022 8:15 AM EST Patient verified by last name and date of . Patient wants a broom handle dipper in the room during during the visit. 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 Orders: - [facility] Orthopedics Spine - Brady Cecelia/Colby 11. Chronic right-sided low back pain with right-sided sciatica Assessment & Plan: Referral to orthopedic surgeon Orders: - [facility] Orthopedics Spine - Brady Cecelia/Colby Follow up in about 3 months [...] MD 06/30/2022 12:55 PM documented in this encounterSCleveland Clinic South Pointe HospitalEvaluation note* Diagnosis Localized edema Edema documented in this encounter [facility] Work Phone: Evaluation note* Diagnosis Dyspnea on exertion Other dyspnea and respiratory abnormality documented in this encounter [facility] Work Phone: Evaluation note* Diagnosis Acute lower GI bleeding- Primary Unspecified, hemorrhage of gastrointestinal tract Acute lower GI bleeding Unspecified, hemorrhage of gastrointestinal tract Rectal bleeding Hemorrhage of rectum and anus Gastrointestinal bleed Unspecified, hemorrhage of gastrointestinal tract documented in this encounter [facility]* Diagnosis Hyperlipidemia with target LDL less than 70 Other and unspecified hyperlipidemia Acquired hypothyroidism Unspecified hypothyroidism Chronic left shoulder pain Pain in joint, shoulder region documented in this encounter [facility] note* Diagnosis Vitamin D deficiency Acquired hypothyroidism Unspecified hypothyroidism Chronic left shoulder pain Pain in joint, shoulder region Restless legs syndrome (RLS) documented in this encounter [facility]* Diagnosis Wound of right buttock, subsequent encounter- Primary Chronic left shoulder pain Pain in joint, shoulder region documented in this encounter [facility]* Diagnosis LNIG (acute kidney injury) ([facility]) ([facility])- Primary Pyelonephritis Unspecified pyelonephritis LING (acute kidney injury) ([facility]) ([facility]) Polypharmacy Issue of repeat prescriptions Insomnia, unspecified type Pressure ulcer of right buttock, stage 3 ([facility]) Declining functional status Weakness Other malaise and fatigue Insomnia Insomnia, unspecified Anxiety Anxiety state, unspecified Polypharmacy Issue of repeat prescriptions DNR (do not resuscitate) Other specified conditions influencing health status Complicated UTI (urinary tract infection) documented in this encounter [facility]* Diagnosis Onset Date Resolution Status Acquired lymphedema acute Debility acute Depression acute Diabetes mellitus acute Edema acute Hypothyroidism acute Insomnia acute Pain in left toe(s) acute Pain in right toe(s) acute Restless leg syndrome acute Rheumatoid arthritis acute Tinea unguium acute Type 2 diabetes mellitus with diabetic polyneuropathy acute Urinary tract infection acut e Hypertension chronic [facility] Work Phone: Evaluation note* Diagnosis Onset Date Resolution Status Acquired lymphedema acute Debility acute Depression acute Diabetes mellitus acute Edema acute Hypothyroidism acute Insomnia acute Restless leg syndrome acute Rheumatoid arthritis acute Type 2 diabetes mellitus with diabetic polyneuropathy acute Hypertension chronic Pain in left toe(s) resolved Pain in right toe(s) resolve d Tinea unguium resolved Urinary tract infection reso lved [facility] Work Phone: Evaluation noteNo assessment information available [facility] Work Phone: Evaluation note* Diagnosis Uncontrolled type [...] with right-sided sciatica documented in this encounter [facility]* Diagnosis Trauma- Primary Injury, other and unspecified, unspecified site documented in this encounter [facility]* Diagnosis Trauma- Primary Injury, other and unspecified, unspecified site documented in this encounter [facility] note* Diagnosis Vitamin D deficiency [facility] Additional Instructions Discharge to [facility] 03/18/2023, intermediate, Part B therapies.[facility] Work Phone: Instructions* Attachments The following attachments cannot be sent through Care Everywhere. * Acute Cystitis Discharge Instructions (Ugandan) [facility] (narrative)* Consultation (Urgent) - Pending Review Specialty Diagnoses / Procedures Referred By Contac t Referred To Contact Wound Care Diagnoses Wound of right buttock, subsequent encounter Procedures [facility] OFFICE/OUTPATIENT [facility] 60-74 MINUTES Katia Granados APRN - CNP [address] [place] [address] [facility] [address] [place] [address] Referral ID Status Reason Start Date Expiration Date Visits Requested Visits Authorized [id number] Pending Review Specialty Services Required 02/07/2023 02/07/2024 1 1 Rogelio Harmon for referral (narrative)* Consultation (Routine) - Pending Review Specialty Diagnoses / Procedures Referred By Contac t Referred To Contact Orthopedic Surgery: Spine Surgery / Orthopedic Surgery Diagnoses DDD (degenerative disc disease), lumbar Chronic right-sided low back pain with right-sided sciatica Procedures [facility] OFFICE/OUTPATIENT [facility] 60-74 MINUTES Shiv Lopez MD [address] [place] [address] [place] [address] [facility] [address] [facility] [address] [place] [address] Referral ID Status Reason Start Date Expiration Date Visits Requested Visits Authorized [id number] Pending Review Specialty Services Required 06/30/2022 12/27/2022 1 1 Rogelio Harmon for referral (narrative)No reason for referral information availableWMercy Health [facility] Work Phone: Summary Purpose Family History No Family History Records Found Relationship Condition Age at Onset Recorded Date/T amelia Not Specified Cardiac disease Unknown Malignant neoplasm Unknown Advance Directives No Advanced Directives Records FoundDocuments on File Type Date Recorded Patient Film Or Videotape Editor Expl anation ACP-Advance Directive ACP-Power of Video Manager Latest Code Status on File Code Status Date Activated Date Inactivated Comments Full Code 01/20/2019 3:56 AM 01/23/2019 7:06 PM Full Code 01/20/2019 3:56 AM 01/20/2019 3:56 AM Documents on File Type Date Recorded Patient Film Or Videotape Editor Expl anation Advance Directives and Living Will Power of Video Manager Documents on File Type Date Recorded Patient Film Or Videotape Editor Expl anation ACP-Advance Directive ACP-Power of Video Manager Latest Code Status on File Code Status [...] No March 06, 2023 4:25pm Power of Video Manager No February 4:25pm Advance Directive Response Recorded Date/ Time Living Will No March 06, 2023 3:25pm Power of Video Manager No February 3:25pm Documents on File Type Date Recorded Patient Film Or Videotape Editor Expl anation DNR (Do Not Resuscitate) 03/06/2023 [...] sent through Care Everywhere. * Lacerations: Stitches (Ugandan) * Head Injury: Closed: General Info (Ugandan) * Cervical Strain (Ugandan) documented in this encounter Assessments Diagnosis Injury of head, initial encounter- Primary Laceration of scalp, initial encounter Strain of neck muscle, initial encounter Reason for Referral Status Reason Specialty Diagnoses / Procedures Referre d By Contact Referred To Contact Closed Cardiology Diagnoses Localized edema Procedures ECHO Complete 2D W Doppler W Color Shiv Lopez MD [address] [place] [address], [place] [address] Specialty Diagnoses / Procedures Referred By Contac t Referred To Contact Gabrielle Finch MD [address] [place] [address] Referral ID Status Reason Start Date Expiration Date Visits Re quested Visits Authorized [id number] Closed 1 1 Referral ID Status Reason Start Date Expiration Date Visits Re quested Visits Authorized [id number] Closed 1 1 Referral ID Status Reason Start Date Expiration Date Visits Re quested Visits Authorized [id number] Closed 1 1 Specialty Diagnoses / Procedures Referred By Contac t Referred To Contact Wound Care Diagnoses Pressure ulcer of right buttock, stage 3 (HCC) Procedures VA OFFICE/OUTPATIENT NEW HIGH MDM 60-74 MINUTES Rosalinda Burrows, MULTIPLE PRESSURE RIVETER OPERATOR - ROLL SETTER [address] [place] [address] Referral ID Status Reason Start Date Expiration Date Visits Requested Visits Authorized [id number] Pending Review Specialty Services Required 03/01/2023 02/29/2024 1 1 Specialty Diagnoses / Procedures Referred By Contac t Referred To Contact Geriatric Medicine Diagnoses Polypharmacy Insomnia, unspecified type Procedures VA OFFICE/OUTPATIENT NEW HIGH MDM 60-74 MINUTES Adam Holt MD [address] [address] [facility] [address] [facility] [address] [place] [address] Referral ID Status Reason Start Date Expiration Date Visits Requested Visits Authorized [id number] Pending Review Specialty Services Required 03/01/2023 02/29/2024 1 1 Chief Complaint and Reason for Visit Chief Complaint UTI/PRESSURE WOUND Reason for Visit Acquired lymphedema Debility Depression Diabetes mellitus Edema Hypothyroidism Insomnia Pain in left toe(s) Pain in right toe(s) Restless leg syndrome Rheumatoid arthritis Tinea unguium Type 2 diabetes mellitus with diabetic polyneuropathy Urinary tract infection Hypertension Chief Complaint UTI/PRESSURE WOUND SNF LAB WORK SNF LAB WORK Reason for Visit Acquired lymphedema Debility Depression Diabetes mellitus Edema Hypothyroidism Insomnia Restless leg syndrome Rheumatoid arthritis Type 2 diabetes mellitus with diabetic polyneuropathy Hypertension Pain in left toe(s) Pain in right toe(s) Tinea unguium Urinary tract infection Chief Complaint UTI/PRESSURE WOUND SNF LAB WORK SNF LAB WORK SNF LABWORK Reason for Visit Acquired lymphedema Debility Depression Diabetes mellitus Edema Hypothyroidism Insomnia Restless leg syndrome Rheumatoid arthritis Type 2 diabetes mellitus with diabetic polyneuropathy Hypertension Pain in left toe(s) Pain in right toe(s) Tinea unguium Urinary tract infection Chief Complaint UTI/PRESSURE WOUND SNF LAB WORK SNF LAB WORK SNF LABWORK SNF LAB WORK Reason for Visit Acquired lymphedema Debility Depression Diabetes mellitus Edema Hypothyroidism Insomnia Restless leg syndrome Rheumatoid arthritis Type 2 diabetes mellitus with diabetic polyneuropathy Hypertension Pain in left toe(s) Pain in right toe(s) Tinea unguium Urinary tract infection Chief Complaint UTI/PRESSURE WOUND SNF LAB WORK SNF LAB WORK SNF LABWORK SNF LAB WORK LABWORK Reason for Visit Acquired lymphedema Debility Depression Diabetes mellitus Edema Hypothyroidism Insomnia Restless leg syndrome Rheumatoid arthritis Type 2 diabetes mellitus with diabetic polyneuropathy Hypertension Pain in left toe(s) Pain in right toe(s) Tinea unguium Urinary tract infection Chief Complaint UTI/PRESSURE WOUND SNF LAB WORK SNF LAB WORK SNF LABWORK SNF LAB WORK SNF LAB WORK LABWORK Reason for Visit Acquired lymphedema Debility Depression Diabetes mellitus Edema Hypothyroidism Insomnia Restless leg syndrome Rheumatoid arthritis Type 2 diabetes mellitus with diabetic polyneuropathy Hypertension Pain in left toe(s) Pain in right toe(s) Tinea unguium Urinary tract infection Chief Complaint SNF LABWORK SNF LAB WORK SNF LAB WORK LABWORK SNF LAB WORK SNF LAB WORK LABWORK SNF LAB WORK LABWORK Chief Complaint SNF LAB WOR K SNF LAB WORK LABWORK SNF LAB WORK SNF LAB WORK LABWORK SNF LAB WORK LABWORK LABWORK Chief Complaint SNF LAB WOR K LABWORK SNF LAB WORK SNF LAB WORK LABWORK SNF LAB WORK LABWORK LABWORK LABWORK Chief Complaint SNF LAB WOR K LABWORK SNF LAB WORK SNF LAB WORK LABWORK SNF LAB WORK LABWORK LABWORK LABWORK LABWORK Chief Complaint Admit Date SNF LAB WORK May 29 5:00am SNF LAB WORK June 13 6:35am SNF LAB WORK June 27, 2024 5:00am SNF LAB WORK July 11, 2024 5:00am LABWORK July 25, 2024 5 :00am B/L SHOULDER PAIN/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 o July 31, 2024 4:58pm LABWORK August 06, 2024 4:00pm LABWORK August 08, 2024 8:05am SNF LAB WORK August 22, 2024 7: 10am Chief Complaint Admit Date SNF LAB WORK May 29 5:00am SNF LAB WORK June 13 6:35am SNF LAB WORK June 27, 2024 5:00am SNF LAB WORK July 11, 2024 5:00am LABWORK July 25, 2024 5 :00am B/L SHOULDER PAIN/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 o July 31, 2024 4:58pm LABWORK August 06, 2024 4:00pm LABWORK August 08, 2024 8:05am SNF LAB WORK August 22, 2024 7: 10am SNF LAB WORK September 05, 2024 8 :00am Chief Complaint Admit Date SNF LAB WORK June 13 6:35am SNF LAB WORK June 27, 2024 5:00am SNF LAB WORK July 11, 2024 5:00am LABWORK July 25, 2024 5 :00am B/L SHOULDER PAIN/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 o July 31, 2024 4:58pm LABWORK August 06, 2024 4:00pm LABWORK August 08, 2024 8:05am SNF LAB WORK August 22, 2024 7: 10am SNF LAB WORK September 05, 2024 8 :00am SNF LAB WORK October 03, 2024 4 :00am Chief Complaint Admit Date SNF LAB WORK June 27, 2024 5:00am SNF LAB WORK July 11, 2024 5:00am LABWORK July 25, 2024 5 :00am B/L SHOULDER PAIN/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 o July 31, 2024 4:58pm LABWORK August 06, 2024 4:00pm LABWORK August 08, 2024 8:05am SNF LAB WORK August 22, 2024 7: 10am SNF LAB WORK September 05, 2024 8 :00am LABWORK September 19, 2024 5:00 am SNF LAB WORK September 23, 2024 8: 20am SNF LAB WORK October 03, 2024 4 :00am Chief Complaint Admit Date LABWORK August 06, 2024 4:00pm LABWORK August 08, 2024 8:05am SNF LAB WORK August 22, 2024 7: 10am SNF LAB WORK September 05, 2024 8 :00am LABWORK September 19, 2024 5:00 am SNF LAB WORK September 23, 2024 8: 20am SNF LAB WORK October 03, 2024 4 :00am LABWORK October 17, 2024 5:00am LABOWRK November 08, 2024 5:00a m Chief Complaint Admit Date LABWORK August 06, 2024 4:00pm LABWORK August 08, 2024 8:05am SNF LAB WORK August 22, 2024 7: 10am SNF LAB WORK September 05, 2024 8 :00am LABWORK September 19, 2024 5:00 am SNF LAB WORK September 23, 2024 8: 20am SNF LAB WORK October 03, 2024 4 :00am LABWORK October 17, 2024 5:00am LABOWRK November 08, 2024 5:00a m SNF LAB WORK November 14, 2024 6:5 0am LABOWRK November 28, 2024 5:00 am Chief Complaint Admit Date LABOWRK November 28, 2024 5:00 am SNF LAB WORK December 12, 2024 7: 40am SNF LAB WORK December 24, 2024 12: 15am SNF LAB WORK December 26, 2024 5: 00am SNF LAB WORK January 09, 2025 7: 00am LABWORK January 23, 2025 5:0 0am LABWORK February 06, 2025 5: 00am SNF LAB WORK February 20 5:00am SNF LAB WORK March 10 4:00am Additional Source Comments INFORMATION SOURCE (unrecogn ized section and content) DATE CREATED AUTHOR 12/13/2017 [facility] DATE CREATED AUTHOR AUTHOR'S ORGANIZ ATION 10/08/2020 [facility] DATE CREATED AUTHOR AUTHOR'S ORGANIZ ATION 08/26/2021 [facility] DATE CREATED AUTHOR AUTHOR'S ORGANIZ ATION 02/05/2024 [facility] DATE CREATED AUTHOR AUTHOR'S ORGANIZ ATION 04/28/2025 [place] Reason for Visit (unrecogniz ed section and content) Reason Comments Fall Surgical team Reason Onset Date Comments Results 10/05/2022 Reason Comments Black or Bloody Stool Specialty Diagnoses / Procedures Referred By Contac t Referred To Contact Diagnoses Acute lower GI bleeding Procedures K92.2 Bertram Durbin MD [address] [place] [address] [facility] 1e Med Surg [address] [place] [address] Referral ID Status Reason Start Date Expiration Date Visits Re quested Visits Authorized [id number] 1 1 Reason Onset Date Comments Med [...] (CMS/HCC) (HCC) Procedures .. Gabrielle Finch MD [address] [place] [address] [facility] Emergency Dept [address] [place] [address] Referral ID Status Reason Start Date Expiration Date Visits Re quested Visits Authorized [id number] 1 1 Reason Onset Date Comments ER [...] Active Member Role Status Dates Dr. Melissa Rede MD Primary Care Provider Active Start: August [...] Attending Provider Active Start: September 19, 2024 Transitional Care Liaison Relationship Specialty Start Date End Date Shiv Lopez MD [address] [place] [id number] PCP - General 02/01/19 Transitional Care Liaison Relationship Specialty Start Date End Date Shiv Lopez MD [address] [place] [id number] PCP - General 02/01/19 Transitional Care Liaison Relationship Specialty Start Date End Date Shiv Lopez MD [address] [place] [address] [id number] PCP - General 02/01/19 Transitional Care Liaison Relationship Specialty Start Date End Date Shiv Lopez MD [address] [place] [address] [id number] PCP - General 02/01/19 Transitional Care Liaison Relationship Specialty Start Date End Date Shiv Lopez MD [address] [place] [address] [id number] PCP - General 02/01/19 Transitional Care Liaison Relationship Specialty Start Date End Date Shiv Lopez MD [facility] [place] [address] PCP - General 02/01/19 Transitional Care Liaison Relationship Specialty Start Date End Date Shiv Lopez MD [address] [facility] [place] [address] PCP - General 02/01/19 Transitional Care Liaison Relationship Specialty Start Date End Date Shiv Lopez MD 25 [facility] [place] [address] PCP - General 02/01/19 Transitional Care Liaison Relationship Specialty Start Date End Date Shiv Lopez MD 25 [facility] [place] [address] PCP - General 02/01/19 Transitional Care Liaison Relationship Specialty Start Date End Date Shiv Lopez MD 25 [facility] [place] [address] PCP - General 02/01/19 Transitional Care Liaison Relationship Specialty Start Date End Date Shiv Lopez MD 25 [facility] [place] [address] PCP - General 02/01/19 Transitional Care Liaison Relationship Specialty Start Date End Date Shiv Lopez MD 25 [facility] [place] [address] PCP - General 02/01/19 Transitional Care Liaison Relationship Specialty Start Date End Date Shiv Lopez MD [address] [facility] [place] [address] PCP - General 02/01/19 Transitional Care Liaison Relationship Specialty Start Date [place] [address] PCP - General 02/01/19 Team Status: Active [...] THOMPSON MD Attending Provider, Referring Provider Active Transitional Care Liaison Relationship Specialty Start Date [place] [address] PCP - General 02/01/19 Transitional Care Liaison Relationship Specialty Start Date [place] [address] PCP - General 02/01/19 Transitional Care Liaison Relationship Specialty Start Date End Date Shiv Lopez MD 25 [facility] [place] [address] PCP General 02/01/19 Transitional Care Liaison Relationship Specialty Start Date End Date Shiv Lopez MD 25 [facility] [place] [address] PCP General 02/01/19 Team Status: Inactive Member Role [...] parameters not met - Comment: Held per [facility]) 0859 (Given - Provider: Oneyda Young RN) 0900 (Not Given - Provider: Lambert Kaur, TONI - Reason: NPO) baclofen (Lioresal) tablet 10 mg 10 mg, Oral, Daily, First dose on Mon12/05/22 at 1954 2050 (Given - Provider: Abby Kahn RN) 0859 (Given - Provider: Oneyda Young, TONI) [...] parameters not met - Comment: Held per [facility]) 0859 (Given - Provider: Oneyda [...] (38 C), Starting on Mon12/05/22 at 3
Administer if oral route cannot be used. [...] 6 hours PRN, nausea, vomiting, Starting on 12/05/22 at 1953
1st Line. Give IV if [...] Provider: Tristan Champion LPN)1300 (Given - Provider: rTistan Champion LPN)1832 (Given - Provider: Tristan Champion [...] 2110 (Given - Provider: Lizeth Shelby RN) 2204 (Given - Provider: Lizeth Shelby RN) PARoxetine (Paxil) tablet 20 mg 20 mg, Oral, Nightly, First dose (after last modification) on Mon03/02/23 at 2100 2058 (Given - Provider: Lizeth Shelby RN) pramipexole (Mirapex) tablet 0.25 mg 0.25 mg, Oral, Nightly, First dose on Mon02/28/23 at 2100 2111 (Given - Provider: Lizeth Shelby RN) 2099 (Given - Provider: Lizeth Shelby, RN) rosuvastatin (Crestor) tablet 10 mg 10 mg, Oral, Daily, First dose on Mon02/28/23 at 1815 2110 (Given - Provider: Lizeth Shelby, RN) 2099 (Given - Provider: Lizeth Shelby [...] BE BASED ON THE PRIMARY CLINICAL RECORDS. [facility]. provides no warranty or guarantee of the accuracy or completeness of information in this document.
--- NOTE | 2025-05-11 16:15 | RAD_ITS ---
PROCEDURE: CHEST 1 VIEW (PORTABLE) 05/11/2025 REASON FOR EXAM: HYPOXIA, PRODUCTIVE COUGH, WHEEZING TECHNIQUE: Frontal view of the chest. FINDINGS: The heart is normal in size. The lungs are hypoaerated but clear. No acute osseous abnormalities. Partially visualized left humeral plate and screw fixation. RAD/Chest 1 View (Portable) IMPRESSION: No Acute Findings. Reading Location: [id number]
[2025-05-11 16:30] LABS: Hematocrit 38.6 % (37-47); Hemoglobin 11.9 g/dL (12.0-15.0); Immature Granulocytes Count 0.050 X10^3/uL (0.0-0.0); Mean Corp Hgb Conc 30.8 g/dL (32-36); Mean Corpuscular Volume 96.7 fL (81-99); Mean Platelet Vol. 10.7 fl (6.2-12.0); NRBC Flagged by Analyzer 0 % (0-5); Platelet Count 348 K/mm3 (150-450); RBC Distribution Width CV 12.2 % (11.6-14.6); RBC Distribution Width SD 43.7 fl (35.1-43.9); Red Blood Count 3.99 M/mm3 (4.2-5.4); White Blood Count 13.3 K/mm3 (4.4-11.0)
[2025-05-11 16:38] LABS: Prothrombin Time (Protime)PT. 13.5 SECONDS (11.7-14.9)
[2025-05-11 16:39] LABS: Partial Thromboplast Time 40.2 Seconds (24.1-36.2)
[2025-05-11 16:51] LABS: Ammonia 10.8 umol/L (11-51)
[2025-05-11 17:23] LABS: AST(SGOT) 45 U/L (<=31); Alanine Aminotransfer ALT/SGPT 34 U/L (<=34); Albumin, Serum 3.2 g/dL (3.4-4.8); Alkaline Phosphatase 117 U/L (35-104); Anion Gap 11 (5-15); BUN 33 mg/dL (4-19); BUN/Creat Ratio 26.9 RATIO (10-20); Calcium,Total 8.7 mg/dL (7.6-11.0); Carbon Dioxide 29.7 mmol/L (21.0-32.0); Chloride 100 mmol/L (98-108); Estimated Creatinine Clearance 48.17 ml/min (50-250); Globulin 3.8 g/dL (2.2-4.2); Glucose 100 mg/dL (70-99); Potassium 4.2 mmol/L (3.3-5.1)
--- NOTE | 2025-05-11 18:48 | PCM.HP.STD ---
HPI - General General Date of Admission: 05/11/25 Date of Service: 05/11/25 Chief Complaint: URI symptoms, shortness of breath and confusion HPI Narrative BLANCO SANDOVAL, is a 79 F who presented to [facility] ED on 05/11/2025 from [facility] with URI symptoms, shortness of breath and confusion. She is not on oxygen at baseline. She developed URI symptoms about 3 to 4 days ago including a productive cough, congestion and shortness of breath. She had worsening shortness of breath today so they brought her in for further evaluation. In the ED she was hypoxic to the mid 80s on room air at rest. She otherwise was mildly hypertensive, in normal sinus rhythm and afebrile. She had a mild leukocytosis of 13,000. CBC and BMP were otherwise benign. ABG with pH 7.39, pCO2 62, pO2 64 on 3 L nasal cannula. Chest x-ray was unremarkable. In the ED she was noted to be very fatigued and fairly confused. She was alert and oriented to person and place but not time and was a very poor historian. Given these findings, hospitalist was contacted for admission. I saw the patient at bedside in the ED. Patient was fatigued appearing and intermittently falling asleep during my encounter with her. She appeared dehydrated with dry mucous and cracked lips noted. She was able to tell me her name and that she was at [facility] but could not tell me the month or year. She denied any acute pain or discomfort currently. Denied any fevers or chills. No other acute concerns currently. Will be admitted for further management. [facility] Medical History Carbapenem-resistant Enterobacteriaceae infection History of ESBL E. coli infection Mitral valve annular calcification Mild pulmonary arterial systolic hypertension Right ventricular dilation Hypothyroidism Hyperlipidemia Rheumatoid arthritis Diabetes mellitus Leg edema Leg swelling Chronic venous insufficiency Anemia Depression Hypothyroidism Chronic pain Arthritis Non-smoker Combined hyperlipidemia Hypertension Home Medications ?Medication ?Instructions ?Recorded ?Last Taken ?Type ergocalciferol (vitamin D2) 1,250 1,250 mcg PO DAILY Supplement 12/23/20 03/03/23 08:00 History mcg (50,000 unit) capsule (Vitamin D2) amlodipine 10 mg tablet 10 mg PO DAILY BP #90 tabs 07/15/21 Unknown Rx baclofen 10 mg tablet 10 mg PO DAILY Muscle Spasms 03/03/23 Unknown History buspirone 5 mg tablet 5 mg PO BID PRN anxiety 03/03/23 Unknown History hydralazine 25 mg tablet 50 mg PO TID BP 03/03/23 Unknown History melatonin 3 mg capsule 3 mg PO QHS Sleep 03/03/23 Unknown History paroxetine HCl 20 mg tablet (Paxil) 20 mg PO DAILY Mood 03/03/23 Unknown History Petrolatum 33% [Eucerin Eqivalent] 1 applic topical BID ##0 03/15/23 Unknown Rx acetaminophen 500 mg tablet 1,000 mg (2 x 500 mg) PO Q6H PRN 03/15/23 Unknown Rx Pain 1-10 #0 tabs ammonium lactate 12 % lotion 1 applic topical BID #0 grams 03/15/23 Unknown Rx atorvastatin 20 mg tablet 20 mg PO QHS #0 tabs 03/15/23 Unknown Rx menthol 0.44 %-zinc oxide 20.6 % 1 applic topical BID #0 grams 03/15/23 Unknown Rx topical ointment (Calmoseptine) nystatin 100,000 unit/gram topical 1 applic topical BID #0 grams 03/15/23 Unknown Rx powder ([facility]) sennosides 8.6 mg-docusate sodium 1 tab PO BID #0 tabs 03/15/23 Unknown Rx 50 mg tablet (Stool Softener-Stimulant Laxative) triamcinolone acetonide 0.1 % 1 applic topical BID #0 grams 03/15/23 Unknown Rx topical ointment albuterol sulfate 1.25 mg/3 mL 1.25 mg inhalation Q4H 05/11/25 Unknown History solution for nebulization albuterol sulfate 90 mcg/actuation 2 puff inhalation Q4H PRN 05/11/25 Unknown History aerosol inhaler shortness of breath or wheezing ascorbic acid (vitamin C) 500 mg 1 g PO DAILY 05/11/25 Unknown History tablet (C-500) cetirizine 10 mg tablet (24Hour 10 mg PO DAILY 05/11/25 Unknown History Allergy) furosemide 80 mg tablet 80 mg PO DAILY 05/11/25 Unknown History guaifenesin 100 mg/5 mL oral 400 mg PO Q4H 05/11/25 Unknown History liquid (Adult Tussin Chest Congestion) insulin glargine 100 unit/mL (3 32 unit subcut DAILY 05/11/25 Unknown History mL) subcutaneous pen (Basaglar KwikPen U-100 Insulin) levothyroxine 100 mcg tablet 100 mcg PO DAILY 05/11/25 Unknown History ondansetron HCl 4 mg tablet 4 mg PO Q8H PRN PRN nausea and 05/11/25 Unknown History vomiting oxybutynin chloride 10 mg 10 mg PO DAILY 05/11/25 Unknown History tablet,extended release 24 hr potassium chloride 20 mEq 20 meq PO DAILY 05/11/25 Unknown History tablet,extended release(part/cryst) pramipexole 0.5 mg tablet 0.5 mg PO DAILY 05/11/25 Unknown History trazodone 100 mg tablet 100 mg PO QHS 05/11/25 Unknown History Allergy/AdvReac Type Severity Reaction Status Date / Time aspirin (From Percodan) Allergy Other Verified 01/26/21 08:43 oxycodone (From Percodan) Allergy Other Verified 01/26/21 08:43 vancomycin Allergy Rash Verified 01/26/21 08:43 Family History Other Cancer Heart disease Surgical History History of lung biopsy History of appendectomy History of cholecystectomy Social History household members: none Smoking Status: Never smoker alcohol intake: current details: 1 mixed drink every 2 weeks. substance use type: does not use ROS Constitutional Constitutional: Reports fatigue and weakness; Denies chills or fever(s) Eyes Eyes: Denies change in vision Cardiovascular Cardiovascular: Denies chest pain Respiratory/Chest Respiratory/Chest: Reports cough, productive cough and shortness of breath at rest; Denies wheezing Gastrointestinal Gastrointestinal: Denies abdominal pain Musculoskeletal Musculoskeletal: Denies arthralgias or myalgias Neurologic Neurologic: Denies dizziness, focal weakness or headache(s) Vital Signs Vital Signs Vital Signs: 05/11/25 15:00 05/11/25 15:04 05/11/25 15:08 Temperature 98.1 F 98.1 F Temperature Source Oral Oral Pulse Rate 69 103 H Respiratory Rate 24 H 29 H Respiratory Effort Short of Breath Respiratory Depth Shallow Respiratory Pattern Tachypnea Blood Pressure 151/66 H 151/66 H Blood Pressure Mean 94 94 Pulse Ox 97 96 Oxygen Delivery Method Nasal Cannula Nasal Cannula Nasal Cannula Oxygen Flow Rate (L/min) 3 3 3 05/11/25 15:45 05/11/25 16:04 05/11/25 16:24 Temperature 98 F Temperature Source Oral Pulse Rate 69 76 Respiratory Rate 18 22 H Respiratory Effort Respiratory Depth Respiratory Pattern Normal Blood Pressure 133/56 H Blood Pressure Mean 81 Pulse Ox 95 Oxygen Delivery Method Room Air Room Air Oxygen Flow Rate (L/min) 05/11/25 17:00 05/11/25 18:00 Temperature 98 F 98 F Temperature Source Oral Oral Pulse Rate 80 78 Respiratory Rate 23 H 16 Respiratory Effort Respiratory Depth Respiratory Pattern Blood Pressure 127/59 H 148/53 H Blood Pressure Mean 81 84 Pulse Ox 92 98 Oxygen Delivery Method Nasal Cannula Nasal Cannula Oxygen Flow Rate (L/min) 2 2 Weight Weight: 116.8 kg Body Mass Index (BMI) 40.3 Physical Exam Const alert and no apparent distress General Appearance: cooperative and comfortable HEENT normocephalic, head/scalp atraumatic, hearing grossly normal bilaterally and nasal mucous membranes and turbinates normal HEENT Narrative: Dry mucous membranes. Eyes PERRL, EOMs intact bilaterally and conjunctivae normal Neck full ROM Chest inspection of chest normal Resp normal respiratory effort and no use of accessory muscles Resp Narrative: Breathing comfortably on 3 L nasal cannula at rest. Mildly diminished breath sounds in bilateral lung bases but otherwise good air movement throughout with no wheezing or crackles noted. Cardio regular rate, regular rhythm, no murmurs and peripheral pulses 2+ throughout GI normal to inspection, nondistended, normoactive bowel sounds, soft to palpation, non-tender and non-distended Back/Spine normal ROM Extremity Extremity Narrative: Bilateral legs wrapped with Madhu wrap with mild tenderness to palpation noted. Neuro moves all extremities and no focal motor deficits Results Lab / Micro Data 05/11/25 15:15 05/11/25 15:15 Labs: Laboratory Results - last 24 hr 05/11/25 15:15: WBC 13.3 H, RBC 3.99 L, Hgb 11.9 L, Hct 38.6, MCV 96.7, MCH 29.8, MCHC 30.8 L, RDW Std Deviation 43.7, RDW Coeff of Daphney 12.2, Plt Count 348, MPV 10.7, Immature Gran % (Auto) 0.400, Neut % (Auto) 66.6, Lymph % (Auto) 17.8 L, [place] % (Auto) 9.5, Eos % (Auto) 5.2 H, Baso % (Auto) 0.5, Absolute Neuts (auto) 8.9 H, Absolute Lymphs (auto) 2.36, Nucleated RBC % 0, Sodium 140, Potassium 4.2, Chloride 100, Carbon Dioxide 29.7, Anion Gap 11, BUN 33 H, Creatinine 1.21 H, Estim Creat Clear Calc 48.17 L, Est GFR (MDRD) Non-Af 45 L, BUN/Creatinine Ratio 26.9 H, Glucose 100 H, Calcium 8.7, Total Bilirubin 0.47, AST 45 H, ALT 34, Alkaline Phosphatase 117 H, Total Protein 7.0, Albumin 3.2 L, Globulin 3.8, Albumin/Globulin Ratio 0.8 L, TSH 1.290 05/11/25 16:15: Lactic Acid < 1.0, Ammonia 10.8 L 05/11/25 16:16: PT 13.5, INR 1.0, APTT 40.2 H ABG Data ABG results: ABG 05/11/25 15:51 Specimen Type ART Sample Site L Radial pH 7.39 Bicarbonate Actual 37.5 H Total CO2 39 Base Excess 12 H O2 Saturation 91 L O2 % 2.0 ABG pCO2 62.6 H ABG pO2 64 L Elder Test Positive O2 Delivery Device Cannula Vent Mode Not entered Imaging Radiology Impression Chest X-Ray 05/11/25 16:15 IMPRESSION: No Acute Findings. Reading Location: [address] Assessment & Plan Assessment/Plan (1) URI (upper respiratory infection): (2) Hypoxia: PLAN: Plan Patient is an 79-year-old female who presented to [facility] ED on 05/11/2025 with URI symptoms, shortness of breath and confusion. 1. Suspected viral URI with acute hypoxia ? Admit under inpatient status to PCU. COVID/flu/RSV and full respiratory panel pending. Mild leukocytosis with URI symptoms noted, but chest x-ray unremarkable. Hypoxic to the mid 80s on room air in the ED and ABG with pO2 64 on 3 L nasal cannula noted. Procalcitonin negative. Will hold off on IV antibiotics at this time. Will treat with supportive care including home DuoNebs as needed. Wean supplemental oxygen as able. 2. Acute metabolic encephalopathy ? Suspected secondary to viral infection and hypoxia as above. Ammonia level normal. No focal findings on exam, low concern for CVA, no need for brain imaging at this time. Treatment as above. Avoid sedating medications as able. 3. Chronic debility with lymphedema ? Case management consulted. Patient lives in ECF at [facility], should be fine to return there on discharge. Has significant lymphedema at baseline and had madhu wraps on bilateral lower extremities on admit with some tenderness to palpation, will need to be monitored. Chronic medical conditions: ? Class II obesity with OSITO and chronic hypercapnia: BMI 37 on admit. Complicates hospital course and care. ABG on admit with pCO2 64 but notably normal pH of 7.39, so she is chronically hypercapnic. Continue home PAP therapy at night and with naps. ? Hypertension/hyperlipidemia: Mildly hypertensive on admit. Continue home amlodipine, hydralazine, and statin. Will hold home Lasix for now as patient was dry and dehydrated on admission, resume when able. ? Type 2 diabetes mellitus: Recent A1c 7.2% in late March. Glucose 100 on admit. Will treat with reduced dose of Lantus 15 units daily plus sliding scale insulin with meals, adjust as needed. ? Hypothyroidism: Continue home Synthroid. ? Anxiety/depression: Continue home Paxil and BuSpar as needed. ? Overactive bladder: Continue home oxybutynin. ? Muscle spasms: Continue home baclofen and pramipexole. DVT prophylaxis: Lovenox CODE STATUS: DNR CCA, DNI Expected disposition: Back to [facility], 2 to 3 days Total clinical time spent by myself addressing the patient's medical issues, reviewing all the data, and collaborating with patient's care team: 78 minutes. Charges/Coding Visit Charges Inpatient E&M: 35299 Init Hosp L3
--- OUTSIDE RECORDS SUMMARY | 2025-05-11 19:07 | XMS RPT_ITS | CCD ---
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 Chaney Primary Care Provider Dr. Melissa Reed MD Attending Provider Unavaildiony Reed MD, Dr. Torres Primary Care Provider Doris Argueta MD, Dr. Betancur Attending Provider Dr. Gypsy Argueta MD Referring Provider Dr. Melissa Reed MD Referring Provider Unavaildiony Lopez MD, Dr. Chaney Primary Care Provider Brianna TOWNSEND, Dr. Torres Attending Provider Unavaildiony Lopez MD, Dr. Chaney Primary Care Provider [phone] Brianna TOWNSEND, Dr. Torres Attending Provider Unavaildiony Reed MD, Dr. Torres Primary Care Provider Doris eRed MD, Dr. Torres Attending Provider Unavaildiony Reed MD, Dr. Torres Primary Care Physician Jamil Reed MD, Dr. Torres Attending Physician Unavail francia Lu MD, Dr. Sánchez Attending Physician Brianna TOWNSEND, Dr. Torres Primary Care Physician Jamil Reed MD, Dr. Torres [facility] Unavailable Gudla OLS, Melissa Primary [...] (20 sources) Codeine Drug Allergy 5 Itching [place], [place] (20 sources) Oxycodone-Aspiri n Propensity to adverse reactions to drug 5 [place] (20 sources) oxyCODONE Drug Allergy 1 Hives [facility] (20 sources) Vancomycin Drug Allergy 1 Rash [facility] (20 sources) Other Allergy to substance 3 [facility] (17 sources) Aspirin Drug Allergy 1 Other [facility] (2 sources) Aluminum aspirin Drug Allergy 1 [facility] (1 source) Aspirin Drug Allergy 1 [facility] (1 source) oxyCODONE Drug Allergy 1 [facility] (1 source) Vancomycin Drug Allergy 1 [facility] Medications Current Medications Medication Drug [...] oral solution (1 source) alpha-Adrenergic Agonist, Uncompetitive K-vxytux-Z-aspartat e Receptor Antagonist, Sigma-1 Agonist Start: 09-10-2018 [...] every week ergocalciferol (Vitamin D-2) 1.25 MG (21070 UT) capsule Indications: Vitamin D deficiency Take 1 capsule (1.25 mg) by mouth 1 (one) time per week. 90 capsule 1 07/18/2022 Active Start: 06-10-2021 take 1 capsule by mo uth every week vitamin D (ERGOCALCIFEROL) 1.25 MG (90941 UT) CAPS capsule Take 1 capsule by mouth once a week 12 capsule 1 06/10/2021 Active Start: 12-23-2020 Start: 01-16-2020 take 1 capsule by mo uth every week vitamin D (ERGOCALCIFEROL) 1.25 MG (43812 UT) CAPS capsule Take 1 capsule by mouth once a week 12 capsule 1 01/16/2020 Active Start: 10-01-2018 ergocalciferol (DRISDOL) 23794 units capsule 1 capsule every week 8 [...] hyperglycemia, without long-term current use of insulin ([facility]) 8 units with breakfast and dinner [...] Drug Class(es) Dates Sig (Normalized) Sig (Original) [id number] 200 actuat albuterol 0.09 mg/actuat metered dose [...] CLEANUP) Start: 06-04-2019 Continuous Blo od Gluc Back Grinder (FREESTYLE EVIN 14 DAY READER) JO LENGTH [...] 08/05/2021 Discontinued (LIST CLEANUP) polyethylene glycol 3350 62961 mg powder for oral solution (3 sources) [...] in past 24 hours. polyethylene glycol 3350 204277 mg / potassium chloride 2970 mg / sodium bicarbonate 6740 mg / sodium chloride 5860 mg / sodium sulfate 86464 mg powder for oral solution (2 sources) [...] aftercare (5 sources) Polypharmacy ; Translations: [Other superintendent terminal (current) drug therapy] Onset: 3 03-01-2023 Episodic Other aftercare (2 sources) Other superintendent terminal (current) drug therapy; Translations: [Other superintendent terminal (current) drug therapy] Onset: 3 Episodic Other aftercare (2 sources) buttermaker helper (current) use of insulin; Translations: [buttermaker helper (current) use of insulin (HCC)] Onset: 3 [...] [facility] Mixed Gram Pos Gram Neg Org Free Soil Count 50,000-80,000 MIXC Mixed contaminants. Submit a new specimen if indicated. [facility] Comment on above: Performed By: #### M 100.2200, L400.0001 ####[facility] [address] [place], [address] CBC-Complete Blood Cnt No Di ffon 04-24-2025 Erythrocyte distribution width (RBC) [Ratio] 12.7 % Normal 11.6-14.6 [facility] Comment on above: Order Comment: 515.1 Performed By: #### L 501.5200, L500.2500 #### [facility] [address] [place], [address] Hematocrit (Bld) [Volume fraction] 40.2 % Normal 37-47 [facility] Comment on above: Order Comment: 515.1 Performed By: #### L 501.5200, L500.2500 #### [facility] [address] [place], [address] Hemoglobin (Bld) [Mass/Vol] 11.6 g/dL Low 12.0-15.0 [facility] Comment on above: Order Comment: 515.1 Performed By: #### L 501.5200, L500.2500 #### [facility] [address] [place], [address] MCH (RBC) [Entitic mass] 30.5 pg Normal 27.0-32.0 [facility] Comment on above: Order Comment: 515.1 Performed By: #### L 501.5200, L500.2500 #### [facility] [address] [place], [address] MCHC (RBC) [Mass/Vol] 28.9 g/dL Low 32-36 [facility] Comment on above: Order Comment: 515.1 Performed By: #### L 501.5200, L500.2500 #### [facility] [address] [place], [address] MCV (RBC) [Entitic vol] 105.8 fL High 81-99 [facility] Comment on above: Order Comment: 515.1 Performed By: #### L 501.5200, L500.2500 #### [facility] [address] [place], [address] Platelet mean volume (Bld) [Entitic vol] 10.2 fL Normal 6.2-12.0 [facility] Comment on above: Order Comment: 515.1 Performed By: #### L 501.5200, L500.2500 #### [facility] [address] [place], [address] Platelets (Bld) [#/Vol] 218 10*3/uL Normal 150-450 [facility] Comment on above: Order Comment: 515.1 Performed By: #### L 501.5200, L500.2500 #### [facility] [address] [place], [address] RBC (Bld) [#/Vol] 3.80 10*6/uL Low 4.2-5.4 [facility] Comment on above: Order Comment: 515.1 Performed By: #### L 501.5200, L500.2500 #### [facility] [address] [place], [address] RDW SD 49.8 fl High 35.1-43.9 [facility] Comment on above: Order Comment: 515.1 Performed By: #### L 501.5200, L500.2500 #### [facility] [address] [place], [address] WBC (Bld) [#/Vol] 12.0 10*3/uL High 4.4-11.0 [facility] Comment on above: Order Comment: 515.1 Performed By: #### L 501.5200, L500.2500 #### [facility] [address] [place], [address] Urinalysis, Completeon 04-24 90279-2 Normal [facility] Comment on above: Order Comment: Urine , Random Performed By: #### M 100.2200, L400.0001 ####[facility] [address] [place], [address] Basic Metabolic Profile (BMP )on 04-22-2025 BUN/CRE 25.4 RATIO High 10-20 [facility] Comment on above: Order Comment: 515.1 Performed By: #### L 501.5200, L500.2500 #### [facility] [address] [place], [address] Calcium [Mass/Vol] 8.4 mg/dL Normal 7.6-11.0 [facility] Comment on above: Order Comment: 515.1 Performed By: #### L 501.5200, L500.2500 #### [facility] [address] [place], [address] Chloride [Moles/Vol] 100 mmol/L Normal 98-108 [facility] Comment on above: Order Comment: 515.1 Performed By: #### L 501.5200, L500.2500 #### [facility] [address] [place], [address] CO2 [Moles/Vol] 30.8 mmol/L Normal 21.0-32.0 [facility] Comment on above: Order Comment: 515.1 Performed By: #### L 501.5200, L500.2500 #### [facility] [address] [place], [address] Creatinine [Mass/Vol] 1.18 mg/dL Normal 0.70-1.20 [facility] Comment on above: Order Comment: 515.1 Performed By: #### L 501.5200, L500.2500 #### [facility] [address] [place], [address] GAP 9 Normal 5-15 [facility] Comment on above: Order Comment: 515.1 Performed By: #### L 501.5200, L500.2500 #### [facility] [address] [place], [address] GFR/1.73 sq M.predicted among non-blacks MDRD (S/P/Bld) [Vol rate/Area] 46 mL/min/{1.73_m2} Low >60 [facility] Comment on above: Order Comment: 515.1 Result Comment: mL/m in/1.73m2 CKD-EPI Creatinine Equation (2020) Performed By: #### L 501.5200, L500.2500 #### [facility] [address] [place], [address] Glucose [Mass/Vol] 190 mg/dL High 70-99 [facility] Comment on above: Order Comment: 515.1 Performed By: #### L 501.5200, L500.2500 #### [facility] [address] [place], [address] Potassium [Moles/Vol] 3.7 mmol/L Normal 3.3-5.1 [facility] Comment on above: Order Comment: 515.1 Performed By: #### L 501.5200, L500.2500 #### [facility] [address] [place], [address] Sodium [Moles/Vol] 140 mmol/L Normal 133-145 [facility] Comment on above: Order Comment: 515.1 Performed By: #### L 501.5200, L500.2500 #### [facility] [address] [place], [address] Urea nitrogen [Mass/Vol] 30 mg/dL High 4-19 [facility] Comment on above: Order Comment: 515.1 Performed By: #### L 501.5200, L500.2500 #### [facility] [address] [place], [address] Magnesiumon 04-22-2025 Magnesium [Mass/Vol] 2.1 mg/dL Normal 1.5-2.2 [facility] Comment on above: Order Comment: 515.1 Performed By: #### L 501.5200, L500.2500 #### [facility] [address] [place], [address] T4 Total, Thyroxinon 025 T4 [Mass/Vol] 7.3 ug/dL Normal 4.8-13.9 [facility] Comment on above: Order Comment: CLEAN CATCH Performed By: #### M 100.2200, L400.0001 #### [facility] [address] [place], [address] L3410.9992on 04-09-2025 [facility] [place] [facility]. COMMENT Normal . [facility] Comment on above: Order Comment: [id number] 5AMIKACIN TROUGH Result Comment: Test Ordered: [id number] Amikacin Trough, Serum Amikacin Trough, Serum 7.1 ug/mL Reference Range: 1.0-8.0 Detection Limit = 0.8 <0.8 indicates None Detected Performed at: - [facility] [address] [id number] Pneumatic Riveter: Germain Craig PhD, Phone: [phone] Performed By: #### M 100.2200, L400.0001 #### [facility] [address] [place], [address] Hemoglobin A1con 04-08-2025 HbA1c (Bld) [Mass fraction] 7.2 % High <=5.6 [facility] Comment on above: Order Comment: CLEAN CATCH Result Comment: Norm al < 5.7 % Prediabetic 5.7 - 6.4 % Diabetic >or= 6.5 % Please note range changes. Performed By: #### M 100.2200, L400.0001 #### [facility] [address] [place], [address] Lipid Profileon 04-08-2025 CHOL:HDL 2.38 Normal [facility] Comment on above: Order Comment: CLEAN CATCH Performed By: #### M 100.2200, L400.0001 #### [facility] [address] [place], [address] Cholesterol [Mass/Vol] 159 mg/dL Normal <=200 [facility] Comment on above: Order Comment: CLEAN CATCH Result Comment: Chol esterol level, Desirable <200 mg/dL Borderline high cholesterol 200-239 mg/dL High cholesterol >=240 mg/dL Recommendations of the NCEP Adult Treatment Panel for the following risk-cutoff thresholds for the [place] population. Performed By: #### M 100.2200, L400.0001 #### [facility] [address] [place], [address] Cholesterol in HDL [Mass/Vol] 67 mg/dL Normal [facility] Comment on above: Order Comment: CLEAN CATCH Result Comment: Misti onal Cholesterol Education Program (NCEP) guidelines: <40 mg/dL: Low HDL-cholesterol (major risk factor for CHD) >= 60 mg/dL: High HDL-cholesterol (negative risk factor for CHD) HDL-cholesterol is affected by a number of factors, e.g. smoking, exercise, hormones, sex and age. Performed By: #### M 100.2200, L400.0001 #### [facility] [address] [place], [address] Cholesterol in LDL [Mass/Vol] 73 mg/dL Normal [facility] Comment on above: Order Comment: CLEAN CATCH Result Comment: Bord dypshg=021-197 mg/dL Higher Rfcy=564 mg/dL or greater Ferris Equation 2020 for LDL-C Performed By: #### M 100.2200, L400.0001 #### [facility] [address] [place], [address] Cholesterol in VLDL [Mass/Vol] 21 mg/dL Normal 5-40 [facility] Comment on above: Order Comment: CLEAN CATCH Performed By: #### M 100.2200, L400.0001 #### [facility] [address] [place], [address] Triglyceride [Mass/Vol] 105 mg/dL Normal [facility] Comment on above: Order Comment: CLEAN CATCH Result Comment: The drugs N-Acetylcysteine and Metamizole may falsely depress this assay. Normal range: <150 mg/dL Borderline High: 150-199 mg/dL High: 200-499 mg/dL Very High: >500 mg/dL Performed By: #### M 100.2200, L400.0001 #### [facility] [address] [place], [address] Thyroid Stim Hormone (TSH)on 04-08-2025 TSH 4.490 uIU/mL High 0.300-4.200 [facility] Comment on above: Order Comment: CLEAN CATCH Performed By: #### M 100.2200, L400.0001 #### [facility] [address] [place], [address] Vitamin D,25 Hydroxyon 04-08 Vitamin D 25-OH 57.3 ng/mL Normal 30-100 [facility] Comment on above: Order Comment: 301.1 Result Comment: Tamar min D Status Deficiency: <20 ng/mL (50nmol/L) Insufficiency: 20-30 ng/mL (50-75 nmol/L) Sufficiency: 30-100 ng/mL (75-250 nmol/L) Toxicity: >100 ng/mL (>250 nmol/L) Performed By: #### M 100.2200, L400.0001 #### [facility] [address] [place], [address] Basic Metabolic Profile (BMP )on 04-03-2025 BUN/CRE 20.2 RATIO High - [facility] Comment on above: Order Comment: 301.1 Performed By: #### L 581.5200, L500.2500 #### [facility] [address] [place], [address] Calcium [Mass/Vol] 8.6 mg/dL Normal 7.6-11.0 [facility] Comment on above: Order Comment: 301.1 Performed By: #### L 501.5200, L500.2500 #### [facility] [address] [place], [address] Chloride [Moles/Vol] 99 mmol/L Normal 98-108 [facility] Comment on above: Order Comment: 301.1 Performed By: #### L 501.5200, L500.2500 #### [facility] [address] [place], [address] CO2 [Moles/Vol] 29.2 mmol/L Normal 21.0-32.0 [facility] Comment on above: Order Comment: 301.1 Performed By: #### L 501.5200, L500.2500 #### [facility] [address] [place], [address] Creatinine [Mass/Vol] 1.17 mg/dL Normal 0.70-1.20 [facility] Comment on above: Order Comment: 301.1 Performed By: #### L 501.5200, L500.2500 #### [facility] [address] [place], [address] GAP 11 Normal 5-15 [facility] Comment on above: Order Comment: 301.1 Performed By: #### L 501.5200, L500.2500 #### [facility] [address] [place], [address] GFR/1.73 sq M.predicted among non-blacks MDRD (S/P/Bld) [Vol rate/Area] 47 mL/min/{1.73_m2} Low >60 [facility] Comment on above: Order Comment: 301.1 Result Comment: mL/m in/1.73m2 CKD-EPI Creatinine Equation (2020) Performed By: #### L 501.5200, L500.2500 #### [facility] [address] [place], [address] Glucose [Mass/Vol] 180 mg/dL High 70-99 [facility] Comment on above: Order Comment: 301.1 Performed By: #### L 501.5200, L500.2500 #### [facility] [address] [place], [address] Potassium [Moles/Vol] 3.8 mmol/L Normal 3.3-5.1 [facility] Comment on above: Order Comment: 301.1 Result Comment: Hemo lysis present, Results??could be affected. ?? Performed By: #### L 501.5200, L500.2500 #### [facility] [address] [place], [address] Sodium [Moles/Vol] 139 mmol/L Normal 133-145 [facility] Comment on above: Order Comment: 301.1 Performed By: #### L 501.5200, L500.2500 #### [facility] [address] [place], [address] Urea nitrogen [Mass/Vol] 24 mg/dL High 4-19 [facility] Comment on above: Order Comment: 301.1 Performed By: #### L 501.5200, L500.2500 #### [facility] [address] [place], [address] CBC-Complete Blood Cnt No Di ffon 04-03-2025 Erythrocyte distribution width (RBC) [Ratio] 12.7 % Normal 11.6-14.6 [facility] Comment on above: Order Comment: 301.1 Performed By: #### L 501.5200, L500.2500 #### [facility] [address] [place], [address] Hematocrit (Bld) [Volume fraction] 40.0 % Normal 37-47 [facility] Comment on above: Order Comment: 301.1 Performed By: #### L 501.5200, L500.2500 #### [facility] [address] [place], [address] Hemoglobin (Bld) [Mass/Vol] 12.5 g/dL Normal 12.0-15.0 [facility] Comment on above: Order Comment: 301.1 Performed By: #### L 501.5200, L500.2500 #### [facility] [address] [place], [address] MCH (RBC) [Entitic mass] 30.5 pg Normal 27.0-32.0 [facility] Comment on above: Order Comment: 301.1 Performed By: #### L 501.5200, L500.2500 #### [facility] [address] [place], [address] MCHC (RBC) [Mass/Vol] 31.3 g/dL Low 32-36 [facility] Comment on above: Order Comment: 301.1 Performed By: #### L 501.5200, L500.2500 #### [facility] [address] [place], [address] MCV (RBC) [Entitic vol] 97.6 fL Normal 81-99 [facility] Comment on above: Order Comment: 301.1 Performed By: #### L 501.5200, L500.2500 #### [facility] [address] [place], [address] Platelet mean volume (Bld) [Entitic vol] 10.1 fL Normal 6.2-12.0 [facility] Comment on above: Order Comment: 301.1 Performed By: #### L 501.5200, L500.2500 #### [facility] [address] [place], [address] Platelets (Bld) [#/Vol] 222 10*3/uL Normal 150-450 [facility] Comment on above: Order Comment: 301.1 Performed By: #### L 501.5200, L500.2500 #### [facility] [address] [place], [address] RBC (Bld) [#/Vol] 4.10 10*6/uL Low 4.2-5.4 [facility] Comment on above: Order Comment: 301.1 Performed By: #### L 501.5200, L500.2500 #### [facility] [address] [place], [address] RDW SD 45.2 fl High 35.1-43.9 [facility] Comment on above: Order Comment: 301.1 Performed By: #### L 501.5200, L500.2500 #### [facility] [address] [place], [address] WBC (Bld) [#/Vol] 8.6 10*3/uL Normal 4.4-11.0 [facility] Comment on above: Order Comment: 301.1 Performed By: #### L 501.5200, L500.2500 #### [facility] [address] [place], [address] Urine Cultureon 03-30-2025 [facility] REFER TO [id number] FOR O LABORATORY CARBAPENEMASE TESTING. Urine Culture Copy of report sent to Infection Control Printer [id number] 03/29/25 07[facility] ESBL Escherichia coli Free Soil Count >100,000 MARKER Possible Carbapenemase producing EnterobacteriaceaeA [...] TMP SMX Islt LAVINIA >=320 R Normal [facility] Comment on above: Performed By: #### M 100.2200, L400.0001 #### [facility] [address] [place], [address] Urinalysis, Completeon 03-27 BACTERIA 2+ /hpf Normal None Seen [facility] Comment on above: Order Comment: CLEAN CATCH Performed By: #### M 100.2200, L400.0001 #### [facility] [address] [place], [address] EPI,SQUAMOUS 10-25 SEEN Normal 5-10 [facility] Comment on above: Order Comment: CLEAN CATCH Performed By: #### M 100.2200, L400.0001 #### [facility] [address] [place], [address] WBC >100 SEEN Normal 0-5 [facility] Comment on above: Order Comment: CLEAN CATCH Performed By: #### M 100.2200, L400.0001 #### [facility] [address] [place], [address] Mucus Ql (Urine sed) 0 SEEN Normal [facility] Comment on above: Order Comment: CLEAN CATCH Performed By: #### M 100.2200, L400.0001 #### [facility] [address] [place], [address] RBC 0 SEEN Normal 0-5 [facility] Comment on above: Order Comment: CLEAN CATCH Performed By: #### M 100.2200, L400.0001 #### [facility] [address] [place], [address] Anion gap in Serum or Plasma Ordered By: Melissa Reed on 03-20-2025 Anion gap [Moles/Vol] 11 mmol/L - [facility] BUN/creatinine ratioOrdered By: Melissa Reed on 03-20-2025 Urea nitrogen/Creatinine [Mass ratio] 19.3 mg/mg - [facility] Basic Metabolic Profile (BMP )on 03-20-2025 BUN/CRE 19.3 RATIO Normal 10-20 [facility] Comment on above: Order Comment: 157 Performed By: #### L 501.5200, L500.2500 #### [facility] [address] [place], [address] GAP 11 Normal 5-15 [facility] Comment on above: Order Comment: 157 Performed By: #### L 501.5200, L500.2500 #### [facility] [address] [place], [address] Potassium [Moles/Vol] 3.8 mmol/L Normal 3.3-5.1 [facility] Comment on above: Order Comment: 157 Performed By: #### L 501.5200, L500.2500 #### [facility] [address] [place], [address] Carbon dioxide, total [Moles /volume] in Central venous bloodOrdered By: Melissa Reed on 03-20-2025 CO2 [Moles/Vol] 28.7 mmol/L Normal 21.0-32.0 [facility] Comment on above: Order Comment: 157 Performed By: #### L 501.5200, L500.2500 #### [facility] [address] [place], [address] Chloride assayOrdered By: Sd Reed on 03-20-2025 Chloride [Moles/Vol] 100 mmol/L Normal 98-108 [facility] Comment on above: Order Comment: 157 Performed By: #### L 501.5200, L500.2500 #### [facility] [address] [place], [address] Glomerular filtration rate ( GFR) estimation/1.73 sq m using serum, plasma, or whole bOrdered By: Melissa Reed on 03-20-2025 GFR/1.73 sq M.predicted among non-blacks MDRD (S/P/Bld) [Vol rate/Area] 55 mL/min/{1.73_m2} Low >60 [facility] Comment on above: mL/min/1.73m2 CKD-EP I Creatinine Equation (2020) Order Comment: 157 Result Comment: mL/m in/1.73m2 CKD-EPI Creatinine Equation (2020) Performed By: #### L 501.5200, L500.2500 #### [facility] [address] [place], [address] Magnesiumon 03-20-2025 Magnesium [Mass/Vol] 2.1 mg/dL Normal 1.5-2.2 [facility] Comment on above: Order Comment: 157 Performed By: #### L 501.5200, L500.2500 #### [facility] [address] [place], [address] Magnesium measurement (mass/ volume)Ordered By: Melissa Reed on 03-20-2025 Magnesium (Unsp spec) [Mass/Vol] 2.1 mg/dL 1.5-2.2 [facility] Potassium measurement (mass/ volume)Ordered By: Melissa Brianna on 03-20-2025 Potassium (Unsp spec) [Mass/Vol] 3.8 mmol/L 3.3-5.1 [facility] Serum creatinine measurement (mass/volume)Ordered By: Melissabridgette Reed on 03-20-2025 Creatinine [Mass/Vol] 1.03 mg/dL Normal 0.70-1.20 [facility] Comment on above: Order Comment: 157 Performed By: #### L 501.5200, L500.2500 #### [facility] [address] [place], [address] Serum glucose measurement (m ass/volume)Ordered By: Melissa Reed on 03-20-2025 Glucose [Mass/Vol] 183 mg/dL High 70-99 [facility] Comment on above: Order Comment: 157 Performed By: #### L 501.5200, L500.2500 #### [facility] [address] [place], [address] Serum or plasma calcium danae urement (mass/volume)Ordered By: Melissa Reed on 03-20-2025 Calcium [Mass/Vol] 8.9 mg/dL Normal 7.6-11.0 [facility] Comment on above: Order Comment: 157 Performed By: #### L 501.5200, L500.2500 #### [facility] [address] [place], [address] Serum or plasma urea nitroge n measurement (mass/volume)Ordered By: Melissa Reed on 03-20-2025 Urea nitrogen [Mass/Vol] 20 mg/dL High 4-19 [facility] Comment on above: Order Comment: 157 Performed By: #### L 501.5200, L500.2500 #### [facility] [address] [place], [address] Sodium levelOrdered By: Rubin Reed on 03-20-2025 Sodium [Moles/Vol] 139 mmol/L Normal 133-145 [facility] Comment on above: Order Comment: 157 Performed By: #### L 501.5200, L500.2500 #### [facility] [address] [place], [address] Hemoglobin A1con 03-14-2025 HbA1c (Bld) [Mass fraction] 6.8 % High <=5.6 [facility] Comment on above: Order Comment: 157 Result Comment: Norm al < 5.7 % Prediabetic 5.7 - 6.4 % Diabetic >or= 6.5 % Please note range changes. Performed By: #### L 501.5200, L500.2500 #### [facility] [address] [place], [address] Hemoglobin A1c percentageOrd ered By: Melissa Reed on 03-14-2025 HbA1c (Bld) [Mass fraction] 6.8 % High <5.7 [facility] Comment on above: Normal < 5.7 % Predi abetic 5.7 - 6.4 % Diabetic >or= 6.5 % Please note range changes. Anion gap in Serum or Plasma Ordered By: Melissa Reed on 03-10-2025 Anion gap [Moles/Vol] 10 mmol/L - [facility] BUN/creatinine ratioOrdered By: Melissa Reed on 03-10-2025 Urea nitrogen/Creatinine [Mass ratio] 22.7 mg/mg High - [facility] Basic Metabolic Profile (BMP )on 03-10-2025 BUN/CRE 22.7 RATIO High - [facility] Comment on above: Order Comment: CLEAN CATCH Performed By: #### M 100.2200, L400.0001 #### [facility] [address] [place], [address] Calcium [Mass/Vol] 8.6 mg/dL Normal 7.6-11.0 [facility] Comment on above: Order Comment: CLEAN CATCH Performed By: #### M 100.2200, L400.0001 #### [facility] [address] [place], [address] Chloride [Moles/Vol] 100 mmol/L Normal 98-108 [facility] Comment on above: Order Comment: CLEAN CATCH Performed By: #### M 100.2200, L400.0001 #### [facility] [address] [place], [address] CO2 [Moles/Vol] 28.0 mmol/L Normal 21.0-32.0 [facility] Comment on above: Order Comment: CLEAN CATCH Performed By: #### M 100.2200, L400.0001 #### [facility] [address] [place], [address] Creatinine [Mass/Vol] 1.08 mg/dL Normal 0.70-1.20 [facility] Comment on above: Order Comment: CLEAN CATCH Performed By: #### M 100.2200, L400.0001 #### [facility] [address] [place], [address] GAP 10 Normal 5-15 [facility] Comment on above: Order Comment: CLEAN CATCH Performed By: #### M 100.2200, L400.0001 #### [facility] [address] [place], [address] GFR/1.73 sq M.predicted among non-blacks MDRD (S/P/Bld) [Vol rate/Area] 52 mL/min/{1.73_m2} Low >60 [facility] Comment on above: Order Comment: CLEAN CATCH Result Comment: mL/m in/1.73m2 CKD-EPI Creatinine Equation (2020) Performed By: #### M 100.2200, L400.0001 #### [facility] [address] [place], [address] Glucose [Mass/Vol] 235 mg/dL High 70-99 [facility] Comment on above: Order Comment: CLEAN CATCH Performed By: #### M 100.2200, L400.0001 #### [facility] [address] [place], [address] Potassium [Moles/Vol] 3.7 mmol/L Normal 3.3-5.1 [facility] Comment on above: Order Comment: CLEAN CATCH Performed By: #### M 100.2200, L400.0001 #### [facility] [address] [place], [address] Sodium [Moles/Vol] 138 mmol/L Normal 133-145 [facility] Comment on above: Order Comment: CLEAN CATCH Performed By: #### M 100.2200, L400.0001 #### [facility] [address] [place], [address] Urea nitrogen [Mass/Vol] 25 mg/dL High 4-19 [facility] Comment on above: Order Comment: CLEAN CATCH Performed By: #### M 100.2200, L400.0001 #### [facility] [address] [place], [address] Carbon dioxide, total [Moles /volume] in Central venous bloodOrdered By: Melissa Reed on 03-10-2025 CO2 [Moles/Vol] 28.0 mmol/L 21.0-32.0 [facility] Chloride assayOrdered By: Sd Reed on 03-10-2025 Chloride [Moles/Vol] 100 mmol/L 98-108 [facility] Glomerular filtration rate ( GFR) estimation/1.73 sq m using serum, plasma, or whole bOrdered By: Melissa Reed on 03-10-2025 GFR/1.73 sq M.predicted among non-blacks MDRD (S/P/Bld) [Vol rate/Area] 52 mL/min/{1.73_m2} Low >60 [facility] Comment on above: mL/min/1.73m2 CKD-EP I Creatinine Equation (2020) Natriuretic peptide.B prohor brenda N-Terminal [Mass/volume] in Serum or PlasmaOrdered By: Melissa Reed on 03-10-2025 Natriuretic peptide.B prohormone N-Terminal [Mass/Vol] 179 pg/mL <1800 [facility] Comment on above: Heart Failure Unlike ly: < 300 pg/mLHeart Failure Likely< 50 Years: > 450 pg/mL50-75 Years: > 900 pg/mL>75 Years: > 1800 pg/mL Potassium measurement (mass/ volume)Ordered By: Melissa Reed on 03-10-2025 Potassium (Unsp spec) [Mass/Vol] 3.7 mmol/L 3.3-5.1 [facility] Pro- Brain NATRIURETIC PEPTI Elizabeth 03-10-2025 Natriuretic peptide B (Bld) [Mass/Vol] 179 pg/mL Normal <=1800 [facility] Comment on above: Order Comment: CLEAN CATCH Result Comment: Hear t Failure Unlikely: < 300 pg/mL Heart Failure Likely < 50 Years: > 450 pg/mL 50-75 Years: > 900 pg/mL >75 Years: > 1800 pg/mL Performed By: #### M 100.2200, L400.0001 #### [facility] [address] [place], [address] Serum creatinine measurement (mass/volume)Ordered By: Melissa Reed on 03-10-2025 Creatinine [Mass/Vol] 1.08 mg/dL 0.70-1.20 [facility] Serum glucose measurement (m ass/volume)Ordered By: Melissa Reed on 03-10-2025 Glucose [Mass/Vol] 235 mg/dL High 70-99 [facility] Serum or plasma calcium danae urement (mass/volume)Ordered By: Melissa Reed on 03-10-2025 Calcium [Mass/Vol] 8.6 mg/dL 7.6-11.0 [facility] Serum or plasma urea nitroge n measurement (mass/volume)Ordered By: Melissa Reed on 03-10-2025 Urea nitrogen [Mass/Vol] 25 mg/dL High 4-19 [facility] Sodium levelOrdered By: Rubin Reed on 03-10-2025 Sodium [Moles/Vol] 138 mmol/L 133-145 [facility] Anion gap in Serum or Plasma Ordered By: Melissa Reed on 03-06-2025 Anion gap [Moles/Vol] 11 mmol/L 5-15 [facility] BUN/creatinine ratioOrdered By: Melissa Reed on 03-06-2025 Urea nitrogen/Creatinine [Mass ratio] 22.3 mg/mg High 10- [facility] Basic Metabolic Profile (BMP )on 03-06-2025 BUN/CRE 22.3 RATIO High - [facility] Comment on above: Order Comment: 157 Performed By: #### L 500.2500, L539.0630 ####[facility] [address] [place], [address] Calcium [Mass/Vol] 8.8 mg/dL Normal 7.6-11.0 [facility] Comment on above: Order Comment: 157 Performed By: #### L 500.2500, L501.5200 ####[facility] [address] [place], [address] Chloride [Moles/Vol] 101 mmol/L Normal 98-108 [facility] Comment on above: Order Comment: 157 Performed By: #### L 500.2500, L501.5200 ####[facility] [address] [place], [address] CO2 [Moles/Vol] 26.7 mmol/L Normal 21.0-32.0 [facility] Comment on above: Order Comment: 157 Performed By: #### L 500.2500, L501.5200 ####[facility] [address] [place], [address] Creatinine [Mass/Vol] 1.08 mg/dL Normal 0.70-1.20 [facility] Comment on above: Order Comment: 157 Performed By: #### L 500.2500, L501.5200 ####[facility] [address] [place], [address] GAP 11 Normal 5-15 [facility] Comment on above: Order Comment: 157 Performed By: #### L 500.2500, L501.5200 ####[facility] [address] [place], [address] GFR/1.73 sq M.predicted among non-blacks MDRD (S/P/Bld) [Vol rate/Area] 52 mL/min/{1.73_m2} Low >60 [facility] Comment on above: Order Comment: 157 Result Comment: mL/m in/1.73m2 CKD-EPI Creatinine Equation (2020) Performed By: #### L 500.2500, L501.5200 ####[facility] [address] [place], [address] Glucose [Mass/Vol] 173 mg/dL High 70-99 [facility] Comment on above: Order Comment: 157 Performed By: #### L 500.2500, L501.5200 ####[facility] [address] [place], [address] Potassium [Moles/Vol] 4.2 mmol/L Normal 3.3-5.1 [facility] Comment on above: Order Comment: 157 Performed By: #### L 500.2500, L501.5200 ####[facility] [address] [place], [address] Sodium [Moles/Vol] 139 mmol/L Normal 133-145 [facility] Comment on above: Order Comment: 157 Performed By: #### L 500.2500, L501.5200 ####[facility] [address] [place], [address] Urea nitrogen [Mass/Vol] 24 mg/dL High 4-19 [facility] Comment on above: Order Comment: 157 Performed By: #### L 500.2500, L501.5200 ####[facility] [address] [place], [address] Carbon dioxide, total [Moles /volume] in Central venous bloodOrdered By: Melissa Reed on 03-06-2025 CO2 [Moles/Vol] 26.7 mmol/L 21.0-32.0 [facility] Chloride assayOrdered By: Sd Reed on 03-06-2025 Chloride [Moles/Vol] 101 mmol/L 98-108 [facility] Glomerular filtration rate ( GFR) estimation/1.73 sq m using serum, plasma, or whole bOrdered By: Melissa Reed on 03-06-2025 GFR/1.73 sq M.predicted among non-blacks MDRD (S/P/Bld) [Vol rate/Area] 52 mL/min/{1.73_m2} Low >60 [facility] Comment on above: mL/min/1.73m2 CKD-EP I Creatinine Equation (2020) Magnesiumon 03-06-2025 Magnesium [Mass/Vol] 2.3 mg/dL High 1.5-2.2 [facility] Comment on above: Order Comment: 157 Performed By: #### L 500.2500, L501.5200 ####[facility] [address] [place], [address] Magnesium measurement (mass/ volume)Ordered By: Melissa Reed on 03-06-2025 Magnesium (Unsp spec) [Mass/Vol] 2.3 mg/dL High 1.5-2.2 [facility] Potassium measurement (mass/ volume)Ordered By: Melissa Reed on 03-06-2025 Potassium (Unsp spec) [Mass/Vol] 4.2 mmol/L 3.3-5.1 [facility] Serum creatinine measurement (mass/volume)Ordered By: Melissa Reed on 03-06-2025 Creatinine [Mass/Vol] 1.08 mg/dL 0.70-1.20 [facility] Serum glucose measurement (m ass/volume)Ordered By: Melissabridgette Reed on 03-06-2025 Glucose [Mass/Vol] 173 mg/dL High 70-99 [facility] Serum or plasma calcium danae urement (mass/volume)Ordered By: Melissa Reed on 03-06-2025 Calcium [Mass/Vol] 8.8 mg/dL 7.6-11.0 [facility] Serum or plasma urea nitroge n measurement (mass/volume)Ordered By: Melissa Reed on 03-06-2025 Urea nitrogen [Mass/Vol] 24 mg/dL High 4-19 [facility] Sodium levelOrdered By: Rubin Reed on 03-06-2025 Sodium [Moles/Vol] 139 mmol/L 133-145 [facility] Anion gap in Serum or Plasma Ordered By: Melissa Reed on 02-20-2025 Anion gap [Moles/Vol] 10 mmol/L 5-15 [facility] BUN/creatinine ratioOrdered By: Melissa Reed on 02-20-2025 Urea nitrogen/Creatinine [Mass ratio] 22.1 mg/mg High 10-20 [facility] Basic Metabolic Profile (BMP )on 02-20-2025 BUN/CRE 22.1 RATIO High 10- [facility] Comment on above: Order Comment: 157 Performed By: #### L 501.9170, L500.2500 ####[facility] [address] [place], [address] Calcium [Mass/Vol] 9.0 mg/dL Normal 7.6-11.0 [facility] Comment on above: Order Comment: 157 Performed By: #### L 501.5200, L500.2500 ####[facility] [address] [place], [address] Chloride [Moles/Vol] 102 mmol/L Normal 98-108 [facility] Comment on above: Order Comment: 157 Performed By: #### L 501.5200, L500.2500 ####[facility] [address] [place], [address] CO2 [Moles/Vol] 27.8 mmol/L Normal 21.0-32.0 [facility] Comment on above: Order Comment: 157 Performed By: #### L 501.5200, L500.2500 ####[facility] [address] [place], [address] Creatinine [Mass/Vol] 1.16 mg/dL Normal 0.70-1.20 [facility] Comment on above: Order Comment: 157 Performed By: #### L 501.5200, L500.2500 ####[facility] [address] [place], [address] GAP 10 Normal 5-15 [facility] Comment on above: Order Comment: 157 Performed By: #### L 501.5200, L500.2500 ####[facility] [address] [place], [address] GFR/1.73 sq M.predicted among non-blacks MDRD (S/P/Bld) [Vol rate/Area] 47 mL/min/{1.73_m2} Low >60 [facility] Comment on above: Order Comment: 157 Result Comment: mL/m in/1.73m2 CKD-EPI Creatinine Equation (2020) Performed By: #### L 501.5200, L500.2500 ####[facility] [address] [place], [address] Glucose [Mass/Vol] 128 mg/dL High 70-99 [facility] Comment on above: Order Comment: 157 Performed By: #### L 501.5200, L500.2500 ####[facility] [address] [place], [address] Potassium [Moles/Vol] 4.4 mmol/L Normal 3.3-5.1 [facility] Comment on above: Order Comment: 157 Performed By: #### L 501.5200, L500.2500 ####[facility] [address] [place], [address] Sodium [Moles/Vol] 140 mmol/L Normal 133-145 [facility] Comment on above: Order Comment: 157 Performed By: #### L 501.5200, L500.2500 ####[facility] [address] [place], [address] Urea nitrogen [Mass/Vol] 26 mg/dL High 4-19 [facility] Comment on above: Order Comment: 157 Performed By: #### L 501.5200, L500.2500 ####[facility] [address] [place], [address] Carbon dioxide, total [Moles /volume] in Central venous bloodOrdered By: Melissa Reed on 02-20-2025 CO2 [Moles/Vol] 27.8 mmol/L 21.0-32.0 [facility] Chloride assayOrdered By: Sd Reed on 02-20-2025 Chloride [Moles/Vol] 102 mmol/L 98-108 [facility] Glomerular filtration rate ( GFR) estimation/1.73 sq m using serum, plasma, or whole bOrdered By: Melissa Reed on 02-20-2025 GFR/1.73 sq M.predicted among non-blacks MDRD (S/P/Bld) [Vol rate/Area] 47 mL/min/{1.73_m2} Low >60 [facility] Comment on above: mL/min/1.73m2 CKD-EP I Creatinine Equation (2020) Magnesiumon 02-20-2025 Magnesium [Mass/Vol] 2.4 mg/dL High 1.5-2.2 [facility] Comment on above: Order Comment: 157 Performed By: #### L 501.5200, L500.2500 ####[facility] [address] [place], [address] Magnesium measurement (mass/ volume)Ordered By: Melissa Reed on 02-20-2025 Magnesium (Unsp spec) [Mass/Vol] 2.4 mg/dL High 1.5-2.2 [facility] Potassium measurement (mass/ volume)Ordered By: Melissa Reed on 02-20-2025 Potassium (Unsp spec) [Mass/Vol] 4.4 mmol/L 3.3-5.1 [facility] Serum creatinine measurement (mass/volume)Ordered By: Melissa Reed on 02-20-2025 Creatinine [Mass/Vol] 1.16 mg/dL 0.70-1.20 [facility] Serum glucose measurement (m ass/volume)Ordered By: Melissa Reed on 02-20-2025 Glucose [Mass/Vol] 128 mg/dL High 70-99 [facility] Serum or plasma calcium danae urement (mass/volume)Ordered By: Melissa Reed on 02-20-2025 Calcium [Mass/Vol] 9.0 mg/dL 7.6-11.0 [facility] Serum or plasma urea nitroge n measurement (mass/volume)Ordered By: Melissa Reed on 02-20-2025 Urea nitrogen [Mass/Vol] 26 mg/dL High 4-19 [facility] Sodium levelOrdered By: Rubin Reed on 02-20-2025 Sodium [Moles/Vol] 140 mmol/L 133-145 [facility] Anion gap in Serum or Plasma Ordered By: Melissa Reed on 02-06-2025 Anion gap [Moles/Vol] 9 mmol/L 5-15 [facility] BUN/creatinine ratioOrdered By: Melissa Reed on 02-06-2025 Urea nitrogen/Creatinine [Mass ratio] 22.7 mg/mg High - [facility] Basic Metabolic Profile (BMP )on 02-06-2025 BUN/CRE 22.7 RATIO High - [facility] Comment on above: Order Comment: 157 Performed By: #### M 100.2200, L400.0001 #### [facility] [address] [place], [address] GAP 9 Normal 5-15 [facility] Comment on above: Order Comment: 157 Performed By: #### M 100.2200, L400.0001 #### [facility] [address] [place], [address] Potassium [Moles/Vol] 4.1 mmol/L Normal 3.3-5.1 [facility] Comment on above: Order Comment: 157 Performed By: #### M 100.0, L400.0001 #### [facility] [address] [place], [address] Carbon dioxide, total [Moles /volume] in Central venous bloodOrdered By: Melissa Reed on 02-06-2025 CO2 [Moles/Vol] 28.5 mmol/L Normal 21.0-32.0 [facility] Comment on above: Order Comment: 157 Performed By: #### M 100.2200, L400.0001 #### [facility] [address] [place], [address] Chloride assayOrdered By: Sd Reed on 02-06-2025 Chloride [Moles/Vol] 102 mmol/L Normal 98-108 [facility] Comment on above: Order Comment: 157 Performed By: #### M 100.2200, L400.0001 #### [facility] [address] [place], [address] Glomerular filtration rate ( GFR) estimation/1.73 sq m using serum, plasma, or whole bOrdered By: Melissa Reed on 02-06-2025 GFR/1.73 sq M.predicted among non-blacks MDRD (S/P/Bld) [Vol rate/Area] 54 mL/min/{1.73_m2} Low >60 [facility] Comment on above: mL/min/1.73m2 CKD-EP I Creatinine Equation (2020) Order Comment: 157 Result Comment: mL/m in/1.73m2 CKD-EPI Creatinine Equation (2020) Performed By: #### M 100.2200, L400.0001 #### [facility] [address] [place], [address] Magnesiumon 02-06-2025 Magnesium [Mass/Vol] 2.1 mg/dL Normal 1.5-2.2 [facility] Comment on above: Order Comment: 157 Performed By: #### M 100.2200, L400.0001 #### [facility] [address] [place], [address] Magnesium measurement (mass/ volume)Ordered By: Melissa Reed on 02-06-2025 Magnesium (Unsp spec) [Mass/Vol] 2.1 mg/dL 1.5-2.2 [facility] Potassium measurement (mass/ volume)Ordered By: Melissa Reed on 02-06-2025 Potassium (Unsp spec) [Mass/Vol] 4.1 mmol/L 3.3-5.1 [facility] Serum creatinine measurement (mass/volume)Ordered By: Melissa Reed on 02-06-2025 Creatinine [Mass/Vol] 1.04 mg/dL Normal 0.70-1.20 [facility] Comment on above: Order Comment: 157 Performed By: #### M 100.2200, L400.0001 #### [facility] [address] [place], [address] Serum glucose measurement (m ass/volume)Ordered By: Melissa Reed on 02-06-2025 Glucose [Mass/Vol] 131 mg/dL High 70-99 [facility] Comment on above: Order Comment: 157 Performed By: #### M 100.2200, L400.0001 #### [facility] [address] [place], [address] Serum or plasma calcium danae urement (mass/volume)Ordered By: Melissa Reed on 02-06-2025 Calcium [Mass/Vol] 8.8 mg/dL Normal 7.6-11.0 [facility] Comment on above: Order Comment: 157 Performed By: #### M 100.2200, L400.0001 #### [facility] [address] [place], [address] Serum or plasma urea nitroge n measurement (mass/volume)Ordered By: Melissa Reed on 02-06-2025 Urea nitrogen [Mass/Vol] 24 mg/dL High 4-19 [facility] Comment on above: Order Comment: 157 Performed By: #### M 100.2200, L400.0001 #### [facility] [address] [place], [address] Sodium levelOrdered By: Rubin Reed on 02-06-2025 Sodium [Moles/Vol] 140 mmol/L Normal 133-145 [facility] Comment on above: Order Comment: 157 Performed By: #### M 100.2200, L400.0001 #### [facility] [address] [place], [address] Anion gap in Serum or Plasma Ordered By: Melissa Reed on 01-23-2025 Anion gap [Moles/Vol] 10 mmol/L 5-15 [facility] BUN/creatinine ratioOrdered By: Melissa Reed on 01-23-2025 Urea nitrogen/Creatinine [Mass ratio] 25.3 mg/mg High 10- [facility] Basic Metabolic Profile (BMP )on 01-23-2025 BUN/CRE 25.3 RATIO High - [facility] Comment on above: Order Comment: CLEAN CATCH Performed By: #### M 100.2200, L400.0001 #### [facility] [address] [place], [address] Calcium [Mass/Vol] 8.8 mg/dL Normal 7.6-11.0 [facility] Comment on above: Order Comment: CLEAN CATCH Performed By: #### M 100.2200, L400.0001 #### [facility] [address] [place], [address] Chloride [Moles/Vol] 102 mmol/L Normal 98-108 [facility] Comment on above: Order Comment: CLEAN CATCH Performed By: #### M 100.2200, L400.0001 #### [facility] [address] [place], [address] CO2 [Moles/Vol] 26.3 mmol/L Normal 21.0-32.0 [facility] Comment on above: Order Comment: CLEAN CATCH Performed By: #### M 100.2200, L400.0001 #### [facility] [address] [place], [address] Creatinine [Mass/Vol] 1.06 mg/dL Normal 0.70-1.20 [facility] Comment on above: Order Comment: CLEAN CATCH Performed By: #### M 100.2200, L400.0001 #### [facility] [address] [place], [address] GAP 10 Normal 5-15 [facility] Comment on above: Order Comment: CLEAN CATCH Performed By: #### M 100.2200, L400.0001 #### [facility] [address] [place], [address] GFR/1.73 sq M.predicted among non-blacks MDRD (S/P/Bld) [Vol rate/Area] 53 mL/min/{1.73_m2} Low >60 [facility] Comment on above: Order Comment: CLEAN CATCH Result Comment: mL/m in/1.73m2 CKD-EPI Creatinine Equation (2020) Performed By: #### M 100.2200, L400.0001 #### [facility] [address] [place], [address] Glucose [Mass/Vol] 139 mg/dL High 70-99 [facility] Comment on above: Order Comment: CLEAN CATCH Performed By: #### M 100.2200, L400.0001 #### [facility] [address] [place], [address] Potassium [Moles/Vol] 4.3 mmol/L Normal 3.3-5.1 [facility] Comment on above: Order Comment: CLEAN CATCH Result Comment: Hemo lysis present, Results??could be affected. ?? Performed By: #### M 100.2200, L400.0001 #### [facility] [address] [place], [address] Sodium [Moles/Vol] 138 mmol/L Normal 133-145 [facility] Comment on above: Order Comment: CLEAN CATCH Performed By: #### M 100.2200, L400.0001 #### [facility] [address] [place], [address] Urea nitrogen [Mass/Vol] 27 mg/dL High 4-19 [facility] Comment on above: Order Comment: CLEAN CATCH Performed By: #### M 100.2200, L400.0001 #### [facility] [address] [place], [address] Carbon dioxide, total [Moles /volume] in Central venous bloodOrdered By: Melissa Reed on 01-23-2025 CO2 [Moles/Vol] 26.3 mmol/L 21.0-32.0 [facility] Chloride assayOrdered By: Sd Reed on 01-23-2025 Chloride [Moles/Vol] 102 mmol/L 98-108 [facility] Glomerular filtration rate ( GFR) estimation/1.73 sq m using serum, plasma, or whole bOrdered By: Melissa Reed on 01-23-2025 GFR/1.73 sq M.predicted among non-blacks MDRD (S/P/Bld) [Vol rate/Area] 53 mL/min/{1.73_m2} Low >60 [facility] Comment on above: mL/min/1.73m2 CKD-EP I Creatinine Equation (2020) Magnesiumon 01-23-2025 Magnesium [Mass/Vol] 2.2 mg/dL Normal 1.5-2.2 [facility] Comment on above: Order Comment: CLEAN CATCH Performed By: #### M 100.2200, [id number] #### [facility] [address] [place], [place], [id number] Magnesium measurement (mass/ volume)Ordered By: Melissa Reed on 01-23-2025 Magnesium (Unsp spec) [Mass/Vol] 2.2 mg/dL 1.5-2.2 [facility] Potassium measurement (mass/ volume)Ordered By: Melissa Reed on 01-23-2025 Potassium (Unsp spec) [Mass/Vol] 4.3 mmol/L 3.3-5.1 [facility] Comment on above: Hemolysis present, R esults could be affected. Serum creatinine measurement (mass/volume)Ordered By: Melissa Reed on 01-23-2025 Creatinine [Mass/Vol] 1.06 mg/dL 0.70-1.20 [facility] Serum glucose measurement (m ass/volume)Ordered By: Melissa Reed on 01-23-2025 Glucose [Mass/Vol] 139 mg/dL High 70-99 [facility] Serum or plasma calcium danae urement (mass/volume)Ordered By: Melissa Reed on 01-23-2025 Calcium [Mass/Vol] 8.8 mg/dL 7.6-11.0 [facility] Serum or plasma urea nitroge n measurement (mass/volume)Ordered By: Melissa Reed on 01-23-2025 Urea nitrogen [Mass/Vol] 27 mg/dL High 4-19 [facility] Sodium levelOrdered By: Rubin Reed on 01-23-2025 Sodium [Moles/Vol] 138 mmol/L 133-145 [facility] Anion gap in Serum or Plasma Ordered By: Melissa Reed on 01-09-2025 Anion gap [Moles/Vol] 8 mmol/L - [facility] BUN/creatinine ratioOrdered By: Melissa Reed on 01-09-2025 Urea nitrogen/Creatinine [Mass ratio] 22.0 mg/mg High 04-07 [facility] Basic Metabolic Profile (BMP )on 01-09-2025 BUN/CRE 22.0 RATIO High 04-07 [facility] Comment on above: Performed By: #### M 100.2200, L400.0001 #### [facility] [address] [place], [address] GAP 8 Normal 10-31 [facility] Comment on above: Performed By: #### M 100.2200, [id number] #### [facility] [address] [place], [address] Potassium [Moles/Vol] 4.5 mmol/L Normal 3.3-5.1 [facility] Comment on above: Result Comment: Hemo lysis present, Results??could be affected. ?? Performed By: #### M 100.2200, L400.0001 #### [facility] [address] [place], [address] Carbon dioxide, total [Moles /volume] in Central venous bloodOrdered By: Melissa Reed on 01-09-2025 CO2 [Moles/Vol] 29.7 mmol/L Normal 21.0-32.0 [facility] Comment on above: Performed By: #### M 100.2200, [id number] #### [facility] [address] [place], [address] Chloride assayOrdered By: Sd Reed on 01-09-2025 Chloride [Moles/Vol] 103 mmol/L Normal 98-108 [facility] Comment on above: Performed By: #### M 100.2200, [id number] #### [facility] [address] [place], [address] Glomerular filtration rate ( GFR) estimation/1.73 sq m using serum, plasma, or whole bOrdered By: Melissa Reed on 01-09-2025 GFR/1.73 sq M.predicted among non-blacks MDRD (S/P/Bld) [Vol rate/Area] 52 mL/min/{1.73_m2} Low >60 [facility] Comment on above: mL/min/1.73m2 CKD-EP I Creatinine Equation (2020) Result Comment: mL/m in/1.73m2 CKD-EPI Creatinine Equation (2020) Performed By: #### M 100.2200, [id number] #### [facility] [address] [place], [address] Magnesiumon 01-09-2025 Magnesium [Mass/Vol] 2.1 mg/dL Normal 1.5-2.2 [facility] Comment on above: Performed By: #### M 100.2200, [id number] #### [facility] [address] [place], [address] Magnesium measurement (mass/ volume)Ordered By: Melissa Reed on 01-09-2025 Magnesium (Unsp spec) [Mass/Vol] 2.1 mg/dL 1.5-2.2 [facility] Potassium measurement (mass/ volume)Ordered By: Melissa Reed on 01-09-2025 Potassium (Unsp spec) [Mass/Vol] 4.5 mmol/L 3.3-5.1 [facility] Comment on above: Hemolysis present, R esults could be affected. Serum creatinine measurement (mass/volume)Ordered By: Melissa Reed on 01-09-2025 Creatinine [Mass/Vol] 1.08 mg/dL Normal 0.70-1.20 [facility] Comment on above: Performed By: #### M 100.2200, [id number] #### [facility] [address] [place], [address] Serum glucose measurement (m ass/volume)Ordered By: Melissabridgette Reed on 01-09-2025 Glucose [Mass/Vol] 78 mg/dL Normal 70-99 [facility] Comment on above: Performed By: #### M 100.2200, [id number] #### [facility] [address] [place], [address] Serum or plasma calcium danae urement (mass/volume)Ordered By: Melissa Reed on 01-09-2025 Calcium [Mass/Vol] 9.0 mg/dL Normal 7.6-11.0 [facility] Comment on above: Performed By: #### M 100.2200, L400.0001 #### [facility] [address] [facility] [place], [address] Serum or plasma urea nitroge n measurement (mass/volume)Ordered By: Melissa Reed on 01-09-2025 Urea nitrogen [Mass/Vol] 24 mg/dL High 4-19 [facility] Comment on above: Performed By: #### M 100.2200, [id number] #### [facility] [address] [place], [address] Sodium levelOrdered By: Rubin Reed on 01-09-2025 Sodium [Moles/Vol] 141 mmol/L Normal 133-145 [facility] Comment on above: Performed By: #### M 100.2200, [id number] #### [facility] [address] [facility] [place], [address] Urine Cultureon 12-27-2024 [facility] Copy of report sent to Infection Control Printer [id number] 12/26/24 0739 FELICITAS. Urine Culture CALLED X2, RESULTS CALLED TO DIVYA AND LEFT VOICEMAIL MESSAGE WITH SCOTTY MUÑOZ 12/26/24 5590 Dora Platt. Escherichia coli Free Soil Count 50,000-80,000 MARKER ESBL producing OrganismA MARKER [...] S Tobramycin Islt LAVINIA <=1 S Normal [facility] Comment on above: Performed By: #### M 100.2200, L400.0001 ####[facility] [address] [facility] [address] Anion gap in Serum or Plasma Ordered By: Melissa Reed on 12-26-2024 Anion gap [Moles/Vol] 9 mmol/L - [facility] BUN/creatinine ratioOrdered By: Melissa Reed on 12-26-2024 Urea nitrogen/Creatinine [Mass ratio] 24.9 mg/mg High - [facility] Basic Metabolic Profile (BMP )on 12-26-2024 BUN/CRE 24.9 RATIO High - [facility] Comment on above: Order Comment: 157 Performed By: #### L 501.5200, L500.2500 #### [facility] [address] [facility] [address] Calcium [Mass/Vol] 8.7 mg/dL Normal 7.6-11.0 [facility] Comment on above: Order Comment: 157 Performed By: #### L 501.5200, L500.2500 #### [facility] [address] [facility] [address] Chloride [Moles/Vol] 103 mmol/L Normal 98-108 [facility] Comment on above: Order Comment: 157 Performed By: #### L 501.5200, L500.2500 #### [facility] [address] [place], [address] CO2 [Moles/Vol] 28.5 mmol/L Normal 21.0-32.0 [facility] Comment on above: Order Comment: 157 Performed By: #### L 501.5200, L500.2500 #### [facility] [address] [place], [address] Creatinine [Mass/Vol] 1.19 mg/dL Normal 0.70-1.20 [facility] Comment on above: Order Comment: 157 Performed By: #### L 501.5200, L500.2500 #### [facility] [address] [place], [address] GAP 9 Normal 5-15 [facility] Comment on above: Order Comment: 157 Performed By: #### L 501.5200, L500.2500 #### [facility] [address] [place], [address] GFR/1.73 sq M.predicted among non-blacks MDRD (S/P/Bld) [Vol rate/Area] 46 mL/min/{1.73_m2} Low >60 [facility] Comment on above: Order Comment: 157 Result Comment: mL/m in/1.73m2 CKD-EPI Creatinine Equation (2020) Performed By: #### L 501.5200, L500.2500 #### [facility] [address] [place], [address] Glucose [Mass/Vol] 162 mg/dL High 70-99 [facility] Comment on above: Order Comment: 157 Performed By: #### L 501.5200, L500.2500 #### [facility] [address] [place], [address] Potassium [Moles/Vol] 4.5 mmol/L Normal 3.3-5.1 [facility] Comment on above: Order Comment: 157 Performed By: #### L 501.5200, L500.2500 #### [facility] [address] [place], [address] Sodium [Moles/Vol] 141 mmol/L Normal 133-145 [facility] Comment on above: Order Comment: 157 Performed By: #### L 501.5200, L500.2500 #### [facility] [address] [place], [address] Urea nitrogen [Mass/Vol] 30 mg/dL High 4-19 [facility] Comment on above: Order Comment: 157 Performed By: #### L 501.5200, L500.2500 #### [facility] [address] [place], [address] Carbon dioxide, total [Moles /volume] in Central venous bloodOrdered By: Melissa Reed on 12-26-2024 CO2 [Moles/Vol] 28.5 mmol/L 21.0-32.0 [facility] Chloride assayOrdered By: Sd Reed on 12-26-2024 Chloride [Moles/Vol] 103 mmol/L 98-108 [facility] Glomerular filtration rate ( GFR) estimation/1.73 sq m using serum, plasma, or whole bOrdered By: Melissa Reed on 12-26-2024 GFR/1.73 sq M.predicted among non-blacks MDRD (S/P/Bld) [Vol rate/Area] 46 mL/min/{1.73_m2} Low >60 [facility] Comment on above: mL/min/1.73m2 CKD-EP I Creatinine Equation (2020) Magnesiumon 12-26-2024 Magnesium [Mass/Vol] 2.2 mg/dL Normal 1.5-2.2 [facility] Comment on above: Order Comment: 157 Performed By: #### L 501.5200, L500.2500 #### [facility] [address] [place], [address] Magnesium measurement (mass/ volume)Ordered By: Melissa Reed on 12-26-2024 Magnesium (Unsp spec) [Mass/Vol] 2.2 mg/dL 1.5-2.2 [facility] Potassium measurement (mass/ volume)Ordered By: Melissa Reed on 12-26-2024 Potassium (Unsp spec) [Mass/Vol] 4.5 mmol/L 3.3-5.1 [facility] Serum creatinine measurement (mass/volume)Ordered By: Melissa Reed on 12-26-2024 Creatinine [Mass/Vol] 1.19 mg/dL 0.70-1.20 [facility] Serum glucose measurement (m ass/volume)Ordered By: Melissa Reed on 12-26-2024 Glucose [Mass/Vol] 162 mg/dL High 70-99 [facility] Serum or plasma calcium danae urement (mass/volume)Ordered By: Melissa Reed on 12-26-2024 Calcium [Mass/Vol] 8.7 mg/dL 7.6-11.0 [facility] Serum or plasma urea nitroge n measurement (mass/volume)Ordered By: Melissa Reed on 12-26-2024 Urea nitrogen [Mass/Vol] 30 mg/dL High 4-19 [facility] Sodium levelOrdered By: Rubin Reed on 12-26-2024 Sodium [Moles/Vol] 141 mmol/L 133-145 [facility] Bilirubin Test strip Ql (U)O rdered By: Melissa Reed on 12-24-2024 Bilirubin Ql (U) Negative Negative [facility] Ketones Test strip Ql (U)Ord ered By: Melissa Reed on 12-24-2024 Ketones Ql (U) Negative Negative [facility] Microscopic analysis of urin e for red blood cells (RBC)Ordered By: Melissa Reed on 12-24-2024 Microscopic analysis of urine for red blood cells (RBC) 0 SEEN /hpf 0-5 [facility] Mucus LM Ql (Urine sed)Order ed By: Melissa Reed on 12-24-2024 Mucus Ql (Urine sed) 0 SEEN /hpf [facility] Nitrite Test strip Ql (U)Ord ered By: Melissa Reed on 12-24-2024 Nitrite Ql (U) Negative Negative [facility] Protein Test strip Ql (U)Ord ered By: Melissa Reed on 12-24-2024 Protein Ql (U) 15 mg/dl High Negative [facility] Squamous epithelial cells de tection in urine sediment by light microscopyOrdered By: Melissa Reed on 12-24-2024 Epithelial cells.squamous LM Ql (Urine sed) 0-5 SEEN /hpf 5-10 [facility] Urinalysis, Completeon 12-24 BACTERIA RARE Normal None Seen [facility] Comment on above: Order Comment: CLEAN CATCH Performed By: #### M 100.2200, L400.0001 ####[facility] [address] [place], [address] EPI,SQUAMOUS 0-5 SEEN Normal 5-10 [facility] Comment on above: Order Comment: CLEAN CATCH Performed By: #### M 100.2200, L400.0001 ####[facility] [address] [place], [address] Mucus Ql (Urine sed) 0 SEEN Normal [facility] Comment on above: Order Comment: CLEAN CATCH Performed By: #### M 100.2200, L400.0001 ####[facility] [address] [place], [address] RBC 0 SEEN Normal 0-5 [facility] Comment on above: Order Comment: CLEAN CATCH Performed By: #### M 100.2200, L400.0001 ####[facility] [address] [place], [address] WBC 0 SEEN Normal 0-5 [facility] Comment on above: Order Comment: CLEAN CATCH Performed By: #### M 100.2200, L400.0001 ####[facility] [address] [place], [address] Urine clarityOrdered By: Lillian Reed on 12-24-2024 Clarity (U) Clear Clear [facility] Urine color determinationOrd ered By: Melissa Reed on 12-24-2024 Color (U) Yellow Yellow [facility] Urine cultureOrdered By: Lillian Reed on 12-24-2024 Bacteria identified Cx Nom (U) Escherichia coli Abnormal [facility] Urine glucose detectionOrder ed By: Melissa Reed on 12-24-2024 Glucose Ql (U) Normal mg/dl Normal [facility] Urine leukocyte esterase det ection by dipstickOrdered By: Melissa Reed on 12-24-2024 Leukocyte esterase Test strip Ql (U) Negative Negative [facility] Urine pHOrdered By: Melissa Heaton udla on 12-24-2024 pH (U) 7.0 [pH] 5.0 - 8.0 [facility] Urine sediment bacteria coun t by microscopy (number/high power field)Ordered By: Melissa Reed on 12-24-2024 Bacteria LM.HPF (Urine sed) [#/Area] RARE /hpf None Seen [facility] Urine specific gravity measu rementOrdered By: Melissa Reed on 12-24-2024 Specific gravity (U) [Rel density] 1.010 1.002-1.030 [facility] Urine urobilinogen measureme ntOrdered By: Melissa Reed on 12-24-2024 Urobilinogen Ql (U) Normal mg/dl Normal [facility] White blood cell countOrdere d By: Melissa Reed on 12-24-2024 White blood cell count 0 SEEN /hpf 0-5 [facility] Anion gap in Serum or Plasma Ordered By: Melissa Reed on 12-12-2024 Anion gap [Moles/Vol] 9 mmol/L 5-15 [facility] BUN/creatinine ratioOrdered By: Melissa Reed on 12-12-2024 Urea nitrogen/Creatinine [Mass ratio] 28.8 mg/mg High 10- [facility] Basic Metabolic Profile (BMP )on 12-12-2024 BUN/CRE 28.8 RATIO [facility] 04-07 [facility] Comment on above: Performed By: #### M 100.2200, L400.0001 #### [facility] [address] [place], [address] Calcium [Mass/Vol] 8.7 mg/dL Normal 7.6-11.0 [facility] Comment on above: Performed By: #### M 100.2200, L400.0001 #### [facility] [address] [place], [address] Chloride [Moles/Vol] 101 mmol/L Normal 98-108 [facility] Comment on above: Performed By: #### M 100.2200, L400.0001 #### [facility] [address] [place], [address] CO2 [Moles/Vol] 27.9 mmol/L Normal 21.0-32.0 [facility] Comment on above: Performed By: #### M 100.2200, L400.0001 #### [facility] [address] [place], [address] Creatinine [Mass/Vol] 0.98 mg/dL Normal 0.70-1.20 [facility] Comment on above: Performed By: #### M 100.2200, L400.0001 #### [facility] [address] [place], [address] GAP 9 Normal 5-15 [facility] Comment on above: Performed By: #### M 100.2200, L400.0001 #### [facility] [address] [place], [address] GFR/1.73 sq M.predicted among non-blacks MDRD (S/P/Bld) [Vol rate/Area] 58 mL/min/{1.73_m2} Low >60 [facility] Comment on above: Result Comment: mL/m in/1.73m2 CKD-EPI Creatinine Equation (2020) Performed By: #### M 100.2200, [id number] #### [facility] [address] [place], [address] Glucose [Mass/Vol] 148 mg/dL High 70-99 [facility] Comment on above: Performed By: #### M 100.2200, L400.0001 #### [facility] [address] [place], [address] Potassium [Moles/Vol] 4.0 mmol/L Normal 3.3-5.1 [facility] Comment on above: Performed By: #### M 100.2200, L400.0001 #### [facility] [address] [place], [address] Sodium [Moles/Vol] 139 mmol/L Normal 133-145 [facility] Comment on above: Performed By: #### M 100.2200, L400.0001 #### [facility] [address] [place], [address] Urea nitrogen [Mass/Vol] 28 mg/dL High 4-19 [facility] Comment on above: Performed By: #### M 100.2200, L400.0001 #### [facility] [address] [place], [address] Carbon dioxide, total [Moles /volume] in Central venous bloodOrdered By: Melissa Reed on 12-12-2024 CO2 [Moles/Vol] 27.9 mmol/L 21.0-32.0 [facility] Chloride assayOrdered By: Sd Reed on 12-12-2024 Chloride [Moles/Vol] 101 mmol/L 98-108 [facility] Glomerular filtration rate ( GFR) estimation/1.73 sq m using serum, plasma, or whole bOrdered By: Melissa Reed on 12-12-2024 GFR/1.73 sq M.predicted among non-blacks MDRD (S/P/Bld) [Vol rate/Area] 58 mL/min/{1.73_m2} Low >60 [facility] Comment on above: mL/min/1.73m2 CKD-EP I Creatinine Equation (2020) Magnesiumon 12-12-2024 Magnesium [Mass/Vol] 2.2 mg/dL Normal 1.5-2.2 [facility] Comment on above: Performed By: #### M 100.2200, [id number] #### [facility] [address] [place], [address] Magnesium measurement (mass/ volume)Ordered By: Melissa Reed on 12-12-2024 Magnesium (Unsp spec) [Mass/Vol] 2.2 mg/dL 1.5-2.2 [facility] Potassium measurement (mass/ volume)Ordered By: Melissa Reed on 12-12-2024 Potassium (Unsp spec) [Mass/Vol] 4.0 mmol/L 3.3-5.1 [facility] Serum creatinine measurement (mass/volume)Ordered By: Melissa Reed on 12-12-2024 Creatinine [Mass/Vol] 0.98 mg/dL 0.70-1.20 [facility] Serum glucose measurement (m ass/volume)Ordered By: Melissa Reed on 12-12-2024 Glucose [Mass/Vol] 148 mg/dL High 70-99 [facility] Serum or plasma calcium danae urement (mass/volume)Ordered By: Melissa Reed on 12-12-2024 Calcium [Mass/Vol] 8.7 mg/dL 7.6-11.0 [facility] Serum or plasma urea nitroge n measurement (mass/volume)Ordered By: Melissa Reed on 12-12-2024 Urea nitrogen [Mass/Vol] 28 mg/dL High 4-19 [facility] Sodium levelOrdered By: Rubin Reed on 12-12-2024 Sodium [Moles/Vol] 139 mmol/L 133-145 [facility] Anion gap in Serum or Plasma Ordered By: Melissa Reed on 11-28-2024 Anion gap [Moles/Vol] 11 mmol/L 5-15 [facility] BUN/creatinine ratioOrdered By: Melissa Reed on 11-28-2024 Urea nitrogen/Creatinine [Mass ratio] 28.8 mg/mg High 10-20 [facility] Basic Metabolic Profile (BMP )on 11-28-2024 BUN/CRE 28.8 RATIO High 10-20 [facility] Comment on above: Order Comment: CLEAN CATCH Performed By: #### M 100.2200, [id number] #### [facility] [address] [place], [address] Calcium [Mass/Vol] 9.5 mg/dL Normal 7.6-11.0 [facility] Comment on above: Order Comment: CLEAN CATCH Performed By: #### M 100.2200, L400.0001 #### [facility] [address] [place], [address] Chloride [Moles/Vol] 98 mmol/L Normal 98-108 [facility] Comment on above: Order Comment: CLEAN CATCH Performed By: #### M 100.2200, [id number] #### [facility] [address] [place], [address] CO2 [Moles/Vol] 29.5 mmol/L Normal 21.0-32.0 [facility] Comment on above: Order Comment: CLEAN CATCH Performed By: #### M 100.2200, L400.0001 #### [facility] [address] [place], [address] Creatinine [Mass/Vol] 1.21 mg/dL High 0.70-1.20 [facility] Comment on above: Order Comment: CLEAN CATCH Performed By: #### M 100.2200, L400.0001 #### [facility] [address] [place], [address] GAP 11 Normal 5-15 [facility] Comment on above: Order Comment: CLEAN CATCH Performed By: #### M 100.2200, L400.0001 #### [facility] [address] [place], [address] GFR/1.73 sq M.predicted among non-blacks MDRD (S/P/Bld) [Vol rate/Area] 45 mL/min/{1.73_m2} Low >60 [facility] Comment on above: Order Comment: CLEAN CATCH Result Comment: mL/m in/1.73m2 CKD-EPI Creatinine Equation (2020) Performed By: #### M 100.2200, [id number] #### [facility] [address] [place], [address] Glucose [Mass/Vol] 126 mg/dL High 70-99 [facility] Comment on above: Order Comment: CLEAN CATCH Performed By: #### M 100.2200, L400.0001 #### [facility] [address] [place], [address] Potassium [Moles/Vol] 4.2 mmol/L Normal 3.3-5.1 [facility] Comment on above: Order Comment: CLEAN CATCH Performed By: #### M 100.2200, L400.0001 #### [facility] [address] [place], [address] Sodium [Moles/Vol] 139 mmol/L Normal 133-145 [facility] Comment on above: Order Comment: CLEAN CATCH Performed By: #### M 100.2200, L400.0001 #### [facility] [address] [place], [address] Urea nitrogen [Mass/Vol] 35 mg/dL High 4-19 [facility] Comment on above: Order Comment: CLEAN CATCH Performed By: #### M 100.2200, L400.0001 #### [facility] [address] [place], [address] Carbon dioxide, total [Moles /volume] in Central venous bloodOrdered By: Melissa Reed on 11-28-2024 CO2 [Moles/Vol] 29.5 mmol/L 21.0-32.0 [facility] Chloride assayOrdered By: Sd Reed on 06-12-2025 Chloride [Moles/Vol] 98 mmol/L 98-108 [facility] Glomerular filtration rate ( GFR) estimation/1.73 sq m using serum, plasma, or whole bOrdered By: Mleissa Reed on 11-28-2024 GFR/1.73 sq M.predicted among non-blacks MDRD (S/P/Bld) [Vol rate/Area] 45 mL/min/{1.73_m2} Low >60 [facility] Comment on above: mL/min/1.73m2 CKD-EP I Creatinine Equation (2020) Magnesiumon 11-28-2024 Magnesium [Mass/Vol] 2.4 mg/dL High 1.5-2.2 [facility] Comment on above: Order Comment: CLEAN CATCH Performed By: #### M 100.2200, L400.0001 #### [facility] [address] [place], [address] Magnesium measurement (mass/ volume)Ordered By: Melissa Reed on 11-28-2024 Magnesium (Unsp spec) [Mass/Vol] 2.4 mg/dL High 1.5-2.2 [facility] Potassium measurement (mass/ volume)Ordered By: Melissa Reed on 11-28-2024 Potassium (Unsp spec) [Mass/Vol] 4.2 mmol/L 3.3-5.1 [facility] Serum creatinine measurement (mass/volume)Ordered By: Melissa Reed on 11-28-2024 Creatinine [Mass/Vol] 1.21 mg/dL High 0.70-1.20 [facility] Serum glucose measurement (m ass/volume)Ordered By: Melissa Reed on 11-28-2024 Glucose [Mass/Vol] 126 mg/dL High 70-99 [facility] Serum or plasma calcium danae urement (mass/volume)Ordered By: Melissa Reed on 11-28-2024 Calcium [Mass/Vol] 9.5 mg/dL 7.6-11.0 [facility] Serum or plasma urea nitroge n measurement (mass/volume)Ordered By: Melissa Reed on 11-28-2024 Urea nitrogen [Mass/Vol] 35 mg/dL High 4-19 [facility] Sodium levelOrdered By: Rubin Reed on 11-28-2024 Sodium [Moles/Vol] 139 mmol/L 133-145 [facility] Anion gap in Serum or Plasma Ordered By: Melissa Reed on 11-14-2024 Anion gap [Moles/Vol] 9 mmol/L 5- [facility] BUN/creatinine ratioOrdered By: Melissa Reed on 11-14-2024 Urea nitrogen/Creatinine [Mass ratio] 21.3 mg/mg High - [facility] Basic Metabolic Profile (BMP )on 11-14-2024 BUN/CRE 21.3 RATIO High 04-07 [facility] Comment on above: Performed By: #### L 501.5200, L500.2500 #### [facility] [address] [place], [address] Calcium [Mass/Vol] 8.6 mg/dL Normal 7.6-11.0 [facility] Comment on above: Performed By: #### L 501.5200, L500.2500 #### [facility] [address] [place], [address] Chloride [Moles/Vol] 101 mmol/L Normal 98-108 [facility] Comment on above: Performed By: #### L 501.5200, L500.2500 #### [facility] [address] [place], [address] CO2 [Moles/Vol] 29.7 mmol/L Normal 21.0-32.0 [facility] Comment on above: Performed By: #### L 501.5200, L500.2500 #### [facility] [address] [place], [address] Creatinine [Mass/Vol] 1.04 mg/dL Normal 0.70-1.20 [facility] Comment on above: Performed By: #### L 501.5200, L500.2500 #### [facility] [address] [place], [address] GAP 9 Normal 5-15 [facility] Comment on above: Performed By: #### L 501.5200, L500.2500 #### [facility] [address] [place], [address] GFR/1.73 sq M.predicted among non-blacks MDRD (S/P/Bld) [Vol rate/Area] 54 mL/min/{1.73_m2} Low >60 [facility] Comment on above: Result Comment: mL/m in/1.73m2 CKD-EPI Creatinine Equation (2020) Performed By: #### L 501.5200, L500.2500 #### [facility] [address] [place], [address] Glucose [Mass/Vol] 179 mg/dL High 70-99 [facility] Comment on above: Performed By: #### L 501.5200, L500.2500 #### [facility] [address] [place], [address] Potassium [Moles/Vol] 4.1 mmol/L Normal 3.3-5.1 [facility] Comment on above: Performed By: #### L 501.5200, L500.2500 #### [facility] [address] [place], [address] Sodium [Moles/Vol] 140 mmol/L Normal 133-145 [facility] Comment on above: Performed By: #### L 501.5200, L500.2500 #### [facility] [address] [place], [address] Urea nitrogen [Mass/Vol] 22 mg/dL High 4-19 [facility] Comment on above: Performed By: #### L 501.5200, L500.2500 #### [facility] [address] [place], [address] Carbon dioxide, total [Moles /volume] in Central venous bloodOrdered By: Melissa Reed on 11-14-2024 CO2 [Moles/Vol] 29.7 mmol/L 21.0-32.0 [facility] Chloride assayOrdered By: Sd Reed on 11-14-2024 Chloride [Moles/Vol] 101 mmol/L 98-108 [facility] Glomerular filtration rate ( GFR) estimation/1.73 sq m using serum, plasma, or whole bOrdered By: Melissa Reed on 11-14-2024 GFR/1.73 sq M.predicted among non-blacks MDRD (S/P/Bld) [Vol rate/Area] 54 mL/min/{1.73_m2} Low >60 [facility] Comment on above: mL/min/1.73m2 CKD-EP I Creatinine Equation (2020) Magnesiumon 11-14-2024 Magnesium [Mass/Vol] 2.1 mg/dL Normal 1.5-2.2 [facility] Comment on above: Performed By: #### L 501.5200, L500.2500 #### [facility] [address] [facility] [place], [address] Magnesium measurement (mass/ volume)Ordered By: Melissa Reed on 11-14-2024 Magnesium (Unsp spec) [Mass/Vol] 2.1 mg/dL 1.5-2.2 [facility] Potassium measurement (mass/ volume)Ordered By: Melissa Reed on 11-14-2024 Potassium (Unsp spec) [Mass/Vol] 4.1 mmol/L 3.3-5.1 [facility] Serum creatinine measurement (mass/volume)Ordered By: Melissa Reed on 11-14-2024 Creatinine [Mass/Vol] 1.04 mg/dL 0.70-1.20 [facility] Serum glucose measurement (m ass/volume)Ordered By: Melissa Reed on 11-14-2024 Glucose [Mass/Vol] 179 mg/dL High 70-99 [facility] Serum or plasma calcium danae urement (mass/volume)Ordered By: Melissa Reed on 11-14-2024 Calcium [Mass/Vol] 8.6 mg/dL 7.6-11.0 [facility] Serum or plasma urea nitroge n measurement (mass/volume)Ordered By: Melissa Reed on 11-14-2024 Urea nitrogen [Mass/Vol] 22 mg/dL High - [facility] Sodium levelOrdered By: Rubin Reed on 11-14-2024 Sodium [Moles/Vol] 140 mmol/L 133-145 [facility] Anion gap in Serum or Plasma Ordered By: Melissa Reed on 11-08-2024 Anion gap [Moles/Vol] 10 mmol/L 5-15 [facility] BUN/creatinine ratioOrdered By: Melissa Reed on 11-08-2024 Urea nitrogen/Creatinine [Mass ratio] 24.4 mg/mg High - [facility] Basic Metabolic Profile (BMP )on 11-08-2024 BUN/CRE 24.4 RATIO High 04-07 [facility] Comment on above: Order Comment: CLEAN CATCH Performed By: #### M 100.2200, L400.0001 #### [facility] [address] [place], [address] Calcium [Mass/Vol] 8.8 mg/dL Normal 7.6-11.0 [facility] Comment on above: Order Comment: CLEAN CATCH Performed By: #### M 100.2200, L400.0001 #### [facility] [address] [place], [address] Chloride [Moles/Vol] 101 mmol/L Normal 98-108 [facility] Comment on above: Order Comment: CLEAN CATCH Performed By: #### M 100.2200, [id number] #### [facility] [address] [place], [address] CO2 [Moles/Vol] 28.3 mmol/L Normal 21.0-32.0 [facility] Comment on above: Order Comment: CLEAN CATCH Performed By: #### M 100.2200, L400.0001 #### [facility] [address] [place], [address] Creatinine [Mass/Vol] 1.08 mg/dL Normal 0.70-1.20 [facility] Comment on above: Order Comment: CLEAN CATCH Performed By: #### M 100.2200, L400.0001 #### [facility] [address] [place], [address] GAP 10 Normal 5-15 [facility] Comment on above: Order Comment: CLEAN CATCH Performed By: #### M 100.2200, L400.0001 #### [facility] [address] [place], [address] GFR/1.73 sq M.predicted among non-blacks MDRD (S/P/Bld) [Vol rate/Area] 52 mL/min/{1.73_m2} Low >60 [facility] Comment on above: Order Comment: CLEAN CATCH Result Comment: mL/m in/1.73m2 CKD-EPI Creatinine Equation (2020) Performed By: #### M 100.2200, L400.0001 #### [facility] [address] [place], [address] Glucose [Mass/Vol] 104 mg/dL High 70-99 [facility] Comment on above: Order Comment: CLEAN CATCH Performed By: #### M 100.2200, L400.0001 #### [facility] [address] [place], [address] Potassium [Moles/Vol] 3.6 mmol/L Normal 3.3-5.1 [facility] Comment on above: Order Comment: CLEAN CATCH Performed By: #### M 100.2200, L400.0001 #### [facility] [address] [place], [address] Sodium [Moles/Vol] 138 mmol/L Normal 133-145 [facility] Comment on above: Order Comment: CLEAN CATCH Performed By: #### M 100.2200, L400.0001 #### [facility] [address] [place], [address] Urea nitrogen [Mass/Vol] 26 mg/dL High 4-19 [facility] Comment on above: Order Comment: CLEAN CATCH Performed By: #### M 100.2200, L400.0001 #### [facility] [address] [place], [address] Bilirubin directOrdered By: Melissa Reed on 11-08-2024 Bilirubin.direct [Mass/Vol] 0.22 mg/dL 0.00-0.30 [facility] Bilirubin, totalOrdered By: Melissa Reed on 11-08-2024 Bilirubin [Mass/Vol] 0.46 mg/dL 0.00-1.30 [facility] CBC-Complete Blood Cnt No Di ffon 11-08-2024 Erythrocyte distribution width (RBC) [Ratio] 12.8 % Normal 11.6-14.6 [facility] Comment on above: Order Comment: CLEAN CATCH Performed By: #### M 100.2200, L400.0001 #### [facility] [address] [place], [address] Hematocrit (Bld) [Volume fraction] 36.6 % Low 37-47 [facility] Comment on above: Order Comment: CLEAN CATCH Performed By: #### M 100.2200, L400.0001 #### [facility] [address] [place], [address] Hemoglobin (Bld) [Mass/Vol] 11.6 g/dL Low 12.0-15.0 [facility] Comment on above: Order Comment: CLEAN CATCH Performed By: #### M 100.2200, L400.0001 #### [facility] [address] [place], [address] MCH (RBC) [Entitic mass] 30.9 pg Normal 27.0-32.0 [facility] Comment on above: Order Comment: CLEAN CATCH Performed By: #### M 100.2200, L400.0001 #### [facility] [address] [place], [address] MCHC (RBC) [Mass/Vol] 31.7 g/dL Low 32-36 [facility] Comment on above: Order Comment: CLEAN CATCH Performed By: #### M 100.2200, L400.0001 #### [facility] [address] [place], [address] MCV (RBC) [Entitic vol] 97.6 fL Normal 81-99 [facility] Comment on above: Order Comment: CLEAN CATCH Performed By: #### M 100.2200, L400.0001 #### [facility] [address] [place], [address] Platelet mean volume (Bld) [Entitic vol] 10.2 fL Normal 6.2-12.0 [facility] Comment on above: Order Comment: CLEAN CATCH Performed By: #### M 100.2200, L400.0001 #### [facility] [address] [place], [address] Platelets (Bld) [#/Vol] 228 10*3/uL Normal 150-450 [facility] Comment on above: Order Comment: CLEAN CATCH Performed By: #### M 100.2200, L400.0001 #### [facility] [address] [place], [address] RBC (Bld) [#/Vol] 3.75 10*6/uL Low 4.2-5.4 [facility] Comment on above: Order Comment: CLEAN CATCH Performed By: #### M 100.2200, L400.0001 #### [facility] [address] [place], [address] RDW SD 46.0 fl High 35.1-43.9 [facility] Comment on above: Order Comment: CLEAN CATCH Performed By: #### M 100.2200, L400.0001 #### [facility] [address] [place], [place], [address] WBC (Bld) [#/Vol] 8.4 10*3/uL Normal 4.4-11.0 [facility] Comment on above: Order Comment: CLEAN CATCH Performed By: #### M 100.2200, L400.0001 #### [facility] [address] [place], [place], [address] Carbon dioxide, total [Moles /volume] in Central venous bloodOrdered By: Melissa Reed on 11-08-2024 CO2 [Moles/Vol] 28.3 mmol/L 21.0-32.0 [facility] Chloride assayOrdered By: Sd Reed on 11-08-2024 Chloride [Moles/Vol] 101 mmol/L 98-108 [facility] Erythrocyte distribution wid th ratioOrdered By: Melissa Reed on 11-08-2024 Erythrocyte distribution width (RBC) [Ratio] 12.8 % 11.6-14.6 [facility] Erythrocyte distribution wid th standard deviationOrdered By: Melissa Reed on 11-08-2024 Erythrocyte distribution width (RBC) [Ratio] 46.0 fl High 35.1-43.9 [facility] Glomerular filtration rate ( GFR) estimation/1.73 sq m using serum, plasma, or whole bOrdered By: Melissa Reed on 11-08-2024 GFR/1.73 sq M.predicted among non-blacks MDRD (S/P/Bld) [Vol rate/Area] 52 mL/min/{1.73_m2} Low >60 [facility] Comment on above: mL/min/1.73m2 CKD-EP I Creatinine Equation (2020) Hematocrit Auto (Bld) [Volum e fraction]Ordered By: Melissa Reed on 11-08-2024 Hematocrit (Bld) [Volume fraction] 36.6 % Low 37-47 [facility] Hemoglobin measurementOrdere d By: Melissa Reed on 11-08-2024 Hemoglobin (Bld) [Mass/Vol] 11.6 g/dL Low 12.0-15.0 [facility] - Chemistry and C hemistry - challengeOrdered By: Melissa Reed on 11-08-2024 AST [Catalytic activity/Vol] 81 U/L High <32 [facility] Liver Profileon 11-08-2024 Albumin [Mass/Vol] 3.3 g/dL Low 3.4-4.8 [facility] Comment on above: Order Comment: CLEAN CATCH Performed By: #### M 100.2200, L400.0001 #### [facility] [address] [place], [address] ALK PHOS 110 U/L High 35-104 [facility] Comment on above: Order Comment: CLEAN CATCH Performed By: #### M 100.2200, [id number] #### [facility] [address] [place], [address] ALT [Catalytic activity/Vol] 87 U/L High <=34 [facility] Comment on above: Order Comment: CLEAN CATCH Performed By: #### M 100.2200, L400.0001 #### [facility] [address] [place], [address] AST [Catalytic activity/Vol] 81 U/L High <=31 [facility] Comment on above: Order Comment: CLEAN CATCH Performed By: #### M 100.2200, L400.0001 #### [facility] [address] [place], [address] Bilirubin [Mass/Vol] 0.46 mg/dL Normal 0.00-1.30 [facility] Comment on above: Order Comment: CLEAN CATCH Performed By: #### M 100.2200, L400.0001 #### [facility] [address] [place], [address] Bilirubin.direct [Mass/Vol] 0.22 mg/dL Normal 0.00-0.30 [facility] Comment on above: Order Comment: CLEAN CATCH Performed By: #### M 100.2200, L400.0001 #### [facility] [address] [place], [address] Globulin (S) [Mass/Vol] 2.9 g/dL Normal 2.2-4.2 [facility] Comment on above: Order Comment: CLEAN CATCH Performed By: #### M 100.2200, L400.0001 #### [facility] [address] [place], [address] T PROT 6.3 g/dL Normal 5.9-8.4 [facility] Comment on above: Order Comment: CLEAN CATCH Performed By: #### M 100.2200, L400.0001 #### [facility] [address] [place], [address] MCV (mean corpuscular volume ) determinationOrdered By: Melissa Reed on 11-08-2024 MCV (RBC) [Entitic vol] 97.6 fL 81-99 [facility] Magnesiumon 11-08-2024 Magnesium [Mass/Vol] 1.8 mg/dL Normal 1.5-2.2 [facility] Comment on above: Order Comment: CLEAN CATCH Performed By: #### M 100.2200, L400.0001 #### [facility] [address] [place], [address] Magnesium measurement (mass/ volume)Ordered By: Melissa Reed on 11-08-2024 Magnesium (Unsp spec) [Mass/Vol] 1.8 mg/dL 1.5-2.2 [facility] Mean corpuscular hemoglobin (MCH) determinationOrdered By: Melissa Reed on 11-08-2024 MCH (RBC) [Entitic mass] 30.9 pg 27.0-32.0 [facility] Mean corpuscular hemoglobin concentration (MCHC) determinationOrdered By: Melissa Reed on 11-08-2024 MCHC (RBC) [Mass/Vol] 31.7 g/dL Low 32-36 [facility] Mean platelet volume determi nationOrdered By: Melissa Reed on 11-08-2024 Platelet mean volume (Bld) [Entitic vol] 10.2 fL 6.2-12.0 [facility] Platelet countOrdered By: Sd Reed on 11-08-2024 Platelets (Bld) [#/Vol] 228 10*3/uL 150-450 [facility] Potassium measurement (mass/ volume)Ordered By: Melissa Reed on 11-08-2024 Potassium (Unsp spec) [Mass/Vol] 3.6 mmol/L 3.3-5.1 [facility] RBC Auto (Bld) [#/Vol]Ordere d By: Melissa Reed on 11-08-2024 RBC (Bld) [#/Vol] 3.75 10*6/uL Low 4.2-5.4 [facility] Serum creatinine measurement (mass/volume)Ordered By: Melissa Reed on 11-08-2024 Creatinine [Mass/Vol] 1.08 mg/dL 0.70-1.20 [facility] Serum globulin measurementOr dered By: Melissa Reed on 11-08-2024 Globulin (S) [Mass/Vol] 2.9 g/dL 2.2-4.2 [facility] Serum glucose measurement (m ass/volume)Ordered By: Melissa Reed on 11-08-2024 Glucose [Mass/Vol] 104 mg/dL High 70-99 [facility] Serum or plasma alanine bro otransferase (ALT) measurementOrdered By: Melissa Reed on 11-08-2024 ALT [Catalytic activity/Vol] 87 U/L High <35 [facility] Serum or plasma albumin danae urement (mass/volume)Ordered By: Melissa Reed on 11-08-2024 Albumin [Mass/Vol] 3.3 g/dL Low 3.4-4.8 [facility] Serum or plasma alkaline moustapha sphatase measurementOrdered By: Melissa Reed on 11-08-2024 ALP [Catalytic activity/Vol] 110 U/L High 35-104 [facility] Serum or plasma calcium danae urement (mass/volume)Ordered By: Melissa Reed on 11-08-2024 Calcium [Mass/Vol] 8.8 mg/dL 7.6-11.0 [facility] Serum or plasma urea nitroge n measurement (mass/volume)Ordered By: Melissa Reed on 11-08-2024 Urea nitrogen [Mass/Vol] 26 mg/dL High 4-19 [facility] Sodium levelOrdered By: Rubin Reed on 11-08-2024 Sodium [Moles/Vol] 138 mmol/L 133-145 [facility] Total proteinOrdered By: Lillian Reed on 11-08-2024 Protein [Mass/Vol] 6.3 g/dL 5.9-8.4 [facility] White blood cell (WBC) count Ordered By: Melissa Reed on 11-08-2024 WBC (Bld) [#/Vol] 8.4 10*3/uL 4.4-11.0 [facility] Anion gap in Serum or Plasma Ordered By: Melissa Reed on 10-17-2024 Anion gap [Moles/Vol] 9 mmol/L 5-15 [facility] BUN/creatinine ratioOrdered By: Melissa Reed on 10-17-2024 Urea nitrogen/Creatinine [Mass ratio] 28.5 mg/mg High 10- [facility] Basic Metabolic Profile (BMP )on 10-17-2024 BUN/CRE 28.5 RATIO High 10- [facility] Comment on above: Order Comment: CLEAN CATCH Performed By: #### M 100, L400.0001 #### [facility] [address] [place], [address] Calcium [Mass/Vol] 8.7 mg/dL Normal 7.6-11.0 [facility] Comment on above: Order Comment: CLEAN CATCH Performed By: #### M 100, L400.0001 #### [facility] [address] [place], [address] Chloride [Moles/Vol] 103 mmol/L Normal 98-108 [facility] Comment on above: Order Comment: CLEAN CATCH Performed By: #### M 100, L400.0001 #### [facility] [address] [place], [address] CO2 [Moles/Vol] 28.9 mmol/L Normal 21.0-32.0 [facility] Comment on above: Order Comment: CLEAN CATCH Performed By: #### M 100.2200, [id number] #### [facility] [address] [place], [address] Creatinine [Mass/Vol] 1.04 mg/dL Normal 0.70-1.20 [facility] Comment on above: Order Comment: CLEAN CATCH Performed By: #### M 100.0, L400.0001 #### [facility] [address] [place], [address] GAP 9 Normal 5-15 [facility] Comment on above: Order Comment: CLEAN CATCH Performed By: #### M 100.0, L400.0001 #### [facility] [address] [place], [address] GFR/1.73 sq M.predicted among non-blacks MDRD (S/P/Bld) [Vol rate/Area] 54 mL/min/{1.73_m2} Low >60 [facility] Comment on above: Order Comment: CLEAN CATCH Result Comment: mL/m in/1.73m2 CKD-EPI Creatinine Equation (2020) Performed By: #### M 100.0, L400.0001 #### [facility] [address] [place], [address] Glucose [Mass/Vol] 106 mg/dL High 70-99 [facility] Comment on above: Order Comment: CLEAN CATCH Performed By: #### M 100.2200, [id number] #### [facility] [address] [place], [address] Potassium [Moles/Vol] 3.8 mmol/L Normal 3.3-5.1 [facility] Comment on above: Order Comment: CLEAN CATCH Performed By: #### M 100.2200, L400.0001 #### [facility] [address] [place], [address] Sodium [Moles/Vol] 140 mmol/L Normal 133-145 [facility] Comment on above: Order Comment: CLEAN CATCH Performed By: #### M 100.2200, [id number] #### [facility] [address] [place], [address] Urea nitrogen [Mass/Vol] 30 mg/dL High 4-19 [facility] Comment on above: Order Comment: CLEAN CATCH Performed By: #### M 100.2200, L400.0001 #### [facility] [address] [place], [address] Carbon dioxide, total [Moles /volume] in Central venous bloodOrdered By: Melissa Reed on 10-17-2024 CO2 [Moles/Vol] 28.9 mmol/L 21.0-32.0 [facility] Chloride assayOrdered By: Sd Reed on 10-17-2024 Chloride [Moles/Vol] 103 mmol/L 98-108 [facility] Glomerular filtration rate ( GFR) estimation/1.73 sq m using serum, plasma, or whole bOrdered By: Melissa Reed on 10-17-2024 GFR/1.73 sq M.predicted among non-blacks MDRD (S/P/Bld) [Vol rate/Area] 54 mL/min/{1.73_m2} Low >60 [facility] Comment on above: mL/min/1.73m2 CKD-EP I Creatinine Equation (2020) Magnesiumon 10-17-2024 Magnesium [Mass/Vol] 2.3 mg/dL High 1.5-2.2 [facility] Comment on above: Order Comment: CLEAN CATCH Performed By: #### M 100.2200, L400.0001 #### [facility] [address] [place], [address] Magnesium measurement (mass/ volume)Ordered By: Melissa Reed on 10-17-2024 Magnesium (Unsp spec) [Mass/Vol] 2.3 mg/dL High 1.5-2.2 [facility] Potassium measurement (mass/ volume)Ordered By: Melissa Reed on 10-17-2024 Potassium (Unsp spec) [Mass/Vol] 3.8 mmol/L 3.3-5.1 [facility] Serum creatinine measurement (mass/volume)Ordered By: Melissa Reed on 10-17-2024 Creatinine [Mass/Vol] 1.04 mg/dL 0.70-1.20 [facility] Serum glucose measurement (m ass/volume)Ordered By: Melissa Reed on 10-17-2024 Glucose [Mass/Vol] 106 mg/dL High 70-99 [facility] Serum or plasma calcium danae urement (mass/volume)Ordered By: Melissa Reed on 10-17-2024 Calcium [Mass/Vol] 8.7 mg/dL 7.6-11.0 [facility] Serum or plasma urea nitroge n measurement (mass/volume)Ordered By: Melissa Reed on 10-17-2024 Urea nitrogen [Mass/Vol] 30 mg/dL High 4-19 [facility] Sodium levelOrdered By: Rubin Reed on 10-17-2024 Sodium [Moles/Vol] 140 mmol/L 133-145 [facility] Anion gap in Serum or Plasma Ordered By: Melissa Reed on 10-03-2024 Anion gap [Moles/Vol] 10 mmol/L 5-15 [facility] BUN/creatinine ratioOrdered By: Melissa Reed on 10-03-2024 Urea nitrogen/Creatinine [Mass ratio] 24.4 mg/mg High 10- [facility] Basic Metabolic Profile (BMP )on 10-03-2024 BUN/CRE 24.4 RATIO High - [facility] Comment on above: Order Comment: 157 Performed By: #### L 501.5200, L500.2500 #### [facility] [place], [address] Calcium [Mass/Vol] 8.7 mg/dL Normal 7.6-11.0 [facility] Comment on above: Order Comment: 157 Performed By: #### L 501.5200, L500.2500 #### [facility] [address] [place], [address] Chloride [Moles/Vol] 102 mmol/L Normal 98-108 [facility] Comment on above: Order Comment: 157 Performed By: #### L 501.5200, L500.2500 #### [facility] [address] [place], [address] CO2 [Moles/Vol] 27.9 mmol/L Normal 21.0-32.0 [facility] Comment on above: Order Comment: 157 Performed By: #### L 501.5200, L500.2500 #### [facility] [address] [place], [address] Creatinine [Mass/Vol] 1.08 mg/dL Normal 0.70-1.20 [facility] Comment on above: Order Comment: 157 Performed By: #### L 501.5200, L500.2500 #### [facility] [address] [place], [address] GAP 10 Normal 5-15 [facility] Comment on above: Order Comment: 157 Performed By: #### L 501.5200, L500.2500 #### [facility] [facility] [address] [place], [address] GFR/1.73 sq M.predicted among non-blacks MDRD (S/P/Bld) [Vol rate/Area] 52 mL/min/{1.73_m2} Low >60 [facility] Comment on above: Order Comment: 157 Result Comment: mL/m in/1.73m2 CKD-EPI Creatinine Equation (2020) Performed By: #### L 501.5200, L500.2500 #### [facility] [address] [place], [address] Glucose [Mass/Vol] 179 mg/dL High 70-99 [facility] Comment on above: Order Comment: 157 Performed By: #### L 501.5200, L500.2500 #### [facility] [address] [place], [address] Potassium [Moles/Vol] 3.8 mmol/L Normal 3.3-5.1 [facility] Comment on above: Order Comment: 157 Performed By: #### L 501.5200, L500.2500 #### [facility] [address] [place], [address] Sodium [Moles/Vol] 139 mmol/L Normal 133-145 [facility] Comment on above: Order Comment: 157 Performed By: #### L 501.5200, L500.2500 #### [facility] [address] [place], [address] Urea nitrogen [Mass/Vol] 26 mg/dL High 4-19 [facility] Comment on above: Order Comment: 157 Performed By: #### L 501.5200, L500.2500 #### [facility] [address] [place], [address] Carbon dioxide, total [Moles /volume] in Central venous bloodOrdered By: Melissa Reed on 10-03-2024 CO2 [Moles/Vol] 27.9 mmol/L 21.0-32.0 [facility] Chloride assayOrdered By: Sd Reed on 10-03-2024 Chloride [Moles/Vol] 102 mmol/L 98-108 [facility] GFR/1.73 sq M.predicted denise g non-blacks MDRD (S/P/Bld) [Vol rate/Area]Ordered By: Melissa Reed on 10-03-2024 Estimated GFR (MDRD) Non-Af Amer 52 Low >60 [facility] Comment on above: mL/min/1.73m2 CKD-EP I Creatinine Equation (2020) Glomerular filtration rate ( GFR) estimation/1.73 sq m using serum, plasma, or whole bOrdered By: Melissa Reed on 10-03-2024 GFR/1.73 sq M.predicted among non-blacks MDRD (S/P/Bld) [Vol rate/Area] 52 mL/min/{1.73_m2} Low >60 [facility] Comment on above: mL/min/1.73m2 CKD-EP I Creatinine Equation (2020) Hemoglobin A1con 10-03-2024 HbA1c (Bld) [Mass fraction] 5.9 % High <=5.6 [facility] Comment on above: Order Comment: 157 Result Comment: Norm al < 5.7 % Prediabetic 5.7 - 6.4 % Diabetic >or= 6.5 % Please note range changes. Performed By: #### L 501.5200, L500.2500 #### [facility] [address] [place], [place], [id number] Hemoglobin A1c percentageOrd ered By: Melissa Reed on 10-03-2024 HbA1c (Bld) [Mass fraction] 5.9 % High <5.7 [facility] Comment on above: Normal < 5.7 % Predi abetic 5.7 - 6.4 % Diabetic >or= 6.5 % Please note range changes. Magnesiumon 10-03-2024 Magnesium [Mass/Vol] 2.2 mg/dL Normal 1.5-2.2 [facility] Comment on above: Order Comment: 157 Performed By: #### L 501.5200, L500.2500 #### [facility] [address] [place], [place], [id number] Magnesium (Unsp spec) [Mass/ Vol]Ordered By: Melissa Reed on 10-03-2024 Magnesium [Mass/Vol] 2.2 mg/dL 1.5-2.2 [facility] Magnesium measurement (mass/ volume)Ordered By: Melissa Reed on 10-03-2024 Magnesium (Unsp spec) [Mass/Vol] 2.2 mg/dL 1.5-2.2 [facility] Potassium (Unsp spec) [Mass/ Vol]Ordered By: Melissa Reed on 10-03-2024 Potassium [Moles/Vol] 3.8 mmol/L 3.3-5.1 [facility] Potassium measurement (mass/ volume)Ordered By: Melissa Reed on 10-03-2024 Potassium (Unsp spec) [Mass/Vol] 3.8 mmol/L 3.3-5.1 [facility] Serum creatinine measurement (mass/volume)Ordered By: Melissa Reed on 10-03-2024 Creatinine [Mass/Vol] 1.08 mg/dL 0.70-1.20 [facility] Serum glucose measurement (m ass/volume)Ordered By: Melissa Reed on 10-03-2024 Glucose [Mass/Vol] 179 mg/dL High 70-99 [facility] Serum or plasma calcium danae urement (mass/volume)Ordered By: Melissa Reed on 10-03-2024 Calcium [Mass/Vol] 8.7 mg/dL 7.6-11.0 [facility] Serum or plasma urea nitroge n measurement (mass/volume)Ordered By: Melissa Reed on 10-03-2024 Urea nitrogen [Mass/Vol] 26 mg/dL High 4-19 [facility] Sodium levelOrdered By: Rubin Reed on 10-03-2024 Sodium [Moles/Vol] 139 mmol/L 133-145 [facility] Urine Cultureon 09-26-2024 [facility] Results called on 09/26/24-1126 by MARYLOU to [facility] (RIZWAN) . Copy of report sent to [facility]inter [id number] 09/25/24 1616 FELICITAS. ESBL Escherichia coli Free Soil Count 25,000-50,000 MARKER ESBL producing OrganismA MARKER [...] S Tobramycin Islt LAVINIA <=1 S Normal [facility] Comment on above: Performed By: #### M 100.2200, L400.0001 #### [facility] [address] [place], [address] Bacteria LM.HPF (Urine sed) [#/Area]Ordered By: Melissa Rede on 09-23-2024 Urine Bacteria RARE /hpf None Seen [facility] Bilirubin Test strip Ql (U)O rdered By: Melissa Reed on 09-23-2024 Bilirubin Ql (U) Negative Negative [facility] Epithelial cells.squamous LM Ql (Urine sed)Ordered By: Melissa Reed on 09-23-2024 Epithelial cells.squamous LM.HPF (Urine sed) [#/Area] 0 /[HPF] 5-10 [facility] Glucose Ql (U)Ordered By: Sd Reed on 09-23-2024 Urine Glucose (UA) Normal mg/dl Normal [facility] Ketones Test strip Ql (U)Ord ered By: Melissa Reed on 09-23-2024 Ketones Ql (U) Negative Negative [facility] Microscopic analysis of urin e for red blood cells (RBC)Ordered By: Melissa Reed on 09-23-2024 Microscopic analysis of urine for red blood cells (RBC) 0 SEEN /hpf 0-5 [facility] Urine RBC 0 SEEN /hpf 0-5 [facility] Mucus LM Ql (Urine sed)Order ed By: Melissa Reed on 09-23-2024 Mucus Ql (Urine sed) 0 SEEN /hpf [facility] Nitrite Test strip Ql (U)Ord ered By: Melissa Reed on 09-23-2024 Nitrite Ql (U) Negative Negative [facility] Protein Test strip Ql (U)Ord ered By: Melissa Reed on 09-23-2024 Protein Ql (U) 30 mg/dl High Negative [facility] Squamous epithelial cells de tection in urine sediment by light microscopyOrdered By: Melissa Reed on 09-23-2024 Epithelial cells.squamous LM Ql (Urine sed) 0-5 SEEN /hpf 5-10 [facility] Urinalysis, Completeon 09-23 BACTERIA RARE Normal None Seen [facility] Comment on above: Order Comment: CLEAN CATCH Performed By: #### M 100.2200, L400.0001 #### [facility] [address] [place], [address] EPI,SQUAMOUS 0-5 SEEN Normal 5-10 [facility] Comment on above: Order Comment: CLEAN CATCH Performed By: #### M 100.2200, L400.0001 #### [facility] [address] [place], [address] WBC 50-100 SEEN Normal 0-5 [facility] Comment on above: Order Comment: CLEAN CATCH Performed By: #### M 100.2200, [id number] #### [facility] [address] [place], [address] Mucus Ql (Urine sed) 0 SEEN Normal [facility] Comment on above: Order Comment: CLEAN CATCH Performed By: #### M 100.2200, L400.0001 #### [facility] [address] [place], [address] RBC 0 SEEN Normal 0-5 [facility] Comment on above: Order Comment: CLEAN CATCH Performed By: #### M 100.2200, L400.0001 #### [facility] [address] [place], [address] Urine blood detectionOrdered By: Melissa Reed on 09-23-2024 Urine Occult Blood 25 /ul High Negative [facility] Urine clarityOrdered By: Lillian Reed on 09-23-2024 Clarity (U) Sl. Cloudy Clear [facility] Urine color determinationOrd ered By: Melissa Reed on 09-23-2024 Color (U) Yellow Yellow [facility] Urine cultureOrdered By: Lillian Reed on 09-23-2024 Bacteria identified Cx Nom (U) ESBL Escherichia coli Abnormal [facility] Urine glucose detectionOrder ed By: Melissa Reed on 09-23-2024 Glucose Ql (U) Normal mg/dl Normal [facility] Urine leukocyte esterase det ection by dipstickOrdered By: Melissa Reed on 09-23-2024 Leukocyte esterase Test strip Ql (U) 500 /ul High Negative [facility] Urine pHOrdered By: Melissa Heaton udla on 09-23-2024 pH (U) 6.0 [pH] 5.0 - 8.0 [facility] Urine sediment bacteria coun t by microscopy (number/high power field)Ordered By: Melissa Reed on 09-23-2024 Bacteria LM.HPF (Urine sed) [#/Area] RARE /hpf None Seen [facility] Urine specific gravity measu rementOrdered By: Melissa Reed on 09-23-2024 Specific gravity (U) [Rel density] 1.015 1.002-1.030 [facility] Urine urobilinogen measureme ntOrdered By: Melissa Reed on 09-23-2024 Urobilinogen Ql (U) Normal mg/dl Normal [facility] Urobilinogen Ql (U)Ordered B y: Melissa Reed on 09-23-2024 Urine Urobilinogen Normal mg/dl Normal [facility] White blood cell countOrdere d By: Melissa Reed on 09-23-2024 Urine WBC 50-100 SEEN /hpf 0-5 [facility] White blood cell count 50-100 SEEN /hpf 0-5 [facility] Anion gap in Serum or Plasma Ordered By: Melissa Reed on 09-19-2024 Anion gap [Moles/Vol] 9 mmol/L 5-15 [facility] BUN/creatinine ratioOrdered By: Melissa Reed on 09-19-2024 Urea nitrogen/Creatinine [Mass ratio] 30.0 mg/mg High 10-20 [facility] Basic Metabolic Profile (BMP )on 09-19-2024 BUN/CRE 30.0 RATIO High 10-20 [facility] Comment on above: Order Comment: 157 Performed By: #### M 100.2200, L400.0001 #### [facility] [address] [place], [address] Calcium [Mass/Vol] 8.6 mg/dL Normal 7.6-11.0 [facility] Comment on above: Order Comment: 157 Performed By: #### M 100.2200, L400.0001 #### [facility] [address] [place], [address] Chloride [Moles/Vol] 103 mmol/L Normal 98-108 [facility] Comment on above: Order Comment: 157 Performed By: #### M 100.2200, L400.0001 #### [facility] [address] [place], [address] CO2 [Moles/Vol] 27.2 mmol/L Normal 21.0-32.0 [facility] Comment on above: Order Comment: 157 Performed By: #### M 100.2200, [id number] #### [facility] [address] [place], [address] Creatinine [Mass/Vol] 1.13 mg/dL Normal 0.70-1.20 [facility] Comment on above: Order Comment: 157 Performed By: #### M 100.2200, [id number] #### [facility] [address] [place], [address] GAP 9 Normal 5-15 [facility] Comment on above: Order Comment: 157 Performed By: #### M 100.2200, [id number] #### [facility] [address] [place], [address] GFR/1.73 sq M.predicted among non-blacks MDRD (S/P/Bld) [Vol rate/Area] 49 mL/min/{1.73_m2} Low >60 [facility] Comment on above: Order Comment: 157 Result Comment: mL/m in/1.73m2 CKD-EPI Creatinine Equation (2020) Performed By: #### M 100.2200, L400.0001 #### [facility] [address] [place], [address] Glucose [Mass/Vol] 165 mg/dL High 70-99 [facility] Comment on above: Order Comment: 157 Performed By: #### M 100.2200, [id number] #### [facility] [address] [place], [address] Potassium [Moles/Vol] 4.0 mmol/L Normal 3.3-5.1 [facility] Comment on above: Order Comment: 157 Performed By: #### M 100.2200, L400.0001 #### [facility] [address] [place], [address] Sodium [Moles/Vol] 140 mmol/L Normal 133-145 [facility] Comment on above: Order Comment: 157 Performed By: #### M 100.2200, L400.0001 #### [facility] [address] [place], [address] Urea nitrogen [Mass/Vol] 34 mg/dL High 4-19 [facility] Comment on above: Order Comment: 157 Performed By: #### M 100.2200, [id number] #### [facility] [address] [place], [address] Carbon dioxide, total [Moles /volume] in Central venous bloodOrdered By: Melissa Reed on 09-19-2024 CO2 [Moles/Vol] 27.2 mmol/L 21.0-32.0 [facility] Chloride assayOrdered By: Sd Reed on 09-19-2024 Chloride [Moles/Vol] 103 mmol/L 98-[address] [facility] GFR/1.73 sq M.predicted denise g non-blacks MDRD (S/P/Bld) [Vol rate/Area]Ordered By: Melissa Reed on 09-19-2024 Estimated GFR (MDRD) Non-Af Amer 49 Low >60 [facility] Comment on above: mL/min/1.73m2 CKD-EP I Creatinine Equation (2020) Glomerular filtration rate ( GFR) estimation/1.73 sq m using serum, plasma, or whole bOrdered By: Melissa Reed on 09-19-2024 GFR/1.73 sq M.predicted among non-blacks MDRD (S/P/Bld) [Vol rate/Area] 49 mL/min/{1.73_m2} Low >60 [facility] Comment on above: mL/min/1.73m2 CKD-EP I Creatinine Equation (2020) Magnesiumon 09-19-2024 Magnesium [Mass/Vol] 2.2 mg/dL Normal 1.5-2.2 [facility] Comment on above: Order Comment: 157 Performed By: #### M 100.2200, [id number] #### [facility] [address] [place] [address]. [place], [place], [id number] Magnesium (Unsp spec) [Mass/ Vol]Ordered By: Melissa Reed on 09-19-2024 Magnesium [Mass/Vol] 2.2 mg/dL 1.5-2.2 [facility] Magnesium measurement (mass/ volume)Ordered By: Melissa Reed on 09-19-2024 Magnesium (Unsp spec) [Mass/Vol] 2.2 mg/dL 1.5-2.2 [facility] Potassium (Unsp spec) [Mass/ Vol]Ordered By: Melissa Reed on 09-19-2024 Potassium [Moles/Vol] 4.0 mmol/L 3.3-5.1 [facility] Potassium measurement (mass/ volume)Ordered By: Melissa Reed on 09-19-2024 Potassium (Unsp spec) [Mass/Vol] 4.0 mmol/L 3.3-5.1 [facility] Serum creatinine measurement (mass/volume)Ordered By: Melissa Reed on 09-19-2024 Creatinine [Mass/Vol] 1.13 mg/dL 0.70-1.20 [facility] Serum glucose measurement (m ass/volume)Ordered By: Melissa Genenaz on 09-19-2024 Glucose [Mass/Vol] 165 mg/dL High 70-99 [facility] Serum or plasma calcium danae urement (mass/volume)Ordered By: Melissabridgette Reed on 09-19-2024 Calcium [Mass/Vol] 8.6 mg/dL 7.6-11.0 [facility] Serum or plasma urea nitroge n measurement (mass/volume)Ordered By: Melissa Reed on 09-19-2024 Urea nitrogen [Mass/Vol] 34 mg/dL High 4-19 [facility] Sodium levelOrdered By: Rubin Reed on 09-19-2024 Sodium [Moles/Vol] 140 mmol/L 133-145 [facility] Urine [facility]on 09-19-2024 [facility] ESCHERICHIA COLI [...] sent to In[facility] [id number] 09/08/24 7369 MARYLOU. ESBL Escherichia coli Free Soil Count >100,000 MARKER Possible Carbapenemase producing EnterobacteriaceaeA [...] S Tobramycin Islt LAVINIA <=1 S Normal [facility] Comment on above: Performed By: #### M 100.2200, [id number] #### [facility] [address] [place], [address] Urinalysis, Completeon 09-06 EPI,TRANSITION 0-5 SEEN Normal 0-5 [facility] Comment on above: Order Comment: CLEAN CATCH Performed By: #### M 100.2200, [id number] #### [facility] [address] [place], [address] BACTERIA 3+ /hpf Normal None Seen [facility] Comment on above: Order Comment: CLEAN CATCH Performed By: #### M 100.2200, [id number] #### [facility] [address] [place], [address] EPI,SQUAMOUS 5-10 SEEN Normal 5-10 [facility] Comment on above: Order Comment: CLEAN CATCH Performed By: #### M 100.2200, [id number] #### [facility] [address] [place], [address] RBC 0-5 SEEN Normal 0-5 [facility] Comment on above: Order Comment: CLEAN CATCH Performed By: #### M 100.2200, [id number] #### [facility] [address] [place], [address] WBC 25-50 SEEN Normal 0-5 [facility] Comment on above: Order Comment: CLEAN CATCH Performed By: #### M 100.2200, [id number] #### [facility] [address] [place], [address] Mucus Ql (Urine sed) 0 SEEN Normal [facility] Comment on above: Order Comment: CLEAN CATCH Performed By: #### M 100.2200, [id number] #### [facility] [place], [address] Bilirubin Test strip Ql (U)O rdered By: Melissa Reed on 09-05-2024 Bilirubin Ql (U) Negative Negative [facility] Epithelial cells.squamous LM Ql (Urine sed)Ordered By: Melissa Reed on 09-05-2024 Epithelial cells.squamous LM.HPF (Urine sed) [#/Area] 5 /[HPF] 5-10 [facility] Glucose Ql (U)Ordered By: Sd Reed on 09-05-2024 Urine Glucose (UA) Normal mg/dl Normal [facility] Ketones Test strip Ql (U)Ord ered By: Melissa Reed on 09-05-2024 Ketones Ql (U) Negative Negative [facility] Microscopic analysis of urin e for red blood cells (RBC)Ordered By: Melissa Reed on 09-05-2024 Microscopic analysis of urine for red blood cells (RBC) 0-5 SEEN /hpf 0-5 [facility] Urine RBC 0-5 SEEN /hpf 0-5 [facility] Mucus LM Ql (Urine sed)Order ed By: Melissa Reed on 09-05-2024 Mucus Ql (Urine sed) 0 SEEN /hpf [facility] Nitrite Test strip Ql (U)Ord ered By: Melissa Reed on 09-05-2024 Nitrite Ql (U) Positive High Negative [facility] Protein Test strip Ql (U)Ord ered By: Melissa Reed on 09-05-2024 Protein Ql (U) 30 mg/dl High Negative [facility] Squamous epithelial cells de tection in urine sediment by light microscopyOrdered By: Melissa Reed on 09-05-2024 Epithelial cells.squamous LM Ql (Urine sed) 5-10 SEEN /hpf 5-10 [facility] Transitional cells LM Ql (Ur ine sed)Ordered By: Melissa Reed on 09-05-2024 Urine Transitional Epithelial Cells 0-5 SEEN /hpf 0-5 [facility] Transitional cells detection in urine sediment by light microscopyOrdered By: Melissa Reed on 09-05-2024 Transitional cells LM Ql (Urine sed) 0-5 SEEN /hpf 0-5 [facility] Urine blood detectionOrdered By: Melissa Reed on 09-05-2024 Urine Occult Blood 10 /ul High Negative [facility] Urine clarityOrdered By: Lillian Reed on 09-05-2024 Clarity (U) Sl. Cloudy Clear [facility] Urine color determinationOrd ered By: Melissa Reed on 09-05-2024 Color (U) Yellow Yellow [facility] Urine cultureOrdered By: Lillian Reed on 09-05-2024 Bacteria identified Cx Nom (U) ESBL Escherichia coli Abnormal [facility] Urine glucose detectionOrder ed By: Melissa Reed on 09-05-2024 Glucose Ql (U) Normal mg/dl Normal [facility] Urine leukocyte esterase det ection by dipstickOrdered By: Melissa Reed on 09-05-2024 Leukocyte esterase Test strip Ql (U) 500 /ul High Negative [facility] Urine pHOrdered By: Melissa kerr on 09-05-2024 pH (U) 6.5 [pH] 5.0 - 8.0 [facility] Urine sediment bacteria coun t by microscopy (number/high power field)Ordered By: Melissa Reed on 09-05-2024 Bacteria LM.HPF (Urine sed) [#/Area] 3 /[HPF] None Seen [facility] Urine specific gravity measu rementOrdered By: Melissa Reed on 09-05-2024 Specific gravity (U) [Rel density] 1.015 1.002-1.030 [facility] Urine urobilinogen measureme ntOrdered By: Melissa Reed on 09-05-2024 Urobilinogen Ql (U) Normal mg/dl Normal [facility] Urobilinogen Ql (U)Ordered B y: Melissa Reed on 09-05-2024 Urine Urobilinogen Normal mg/dl Normal [facility] White blood cell countOrdere d By: Melissa Reed on 09-05-2024 Urine WBC 25-50 SEEN /hpf 0-5 [facility] White blood cell count 25-50 SEEN /hpf 0-5 [facility] Anion gap in Serum or Plasma Ordered By: Melissa Reed on 08-22-2024 Anion gap [Moles/Vol] 11 mmol/L - [facility] BUN/creatinine ratioOrdered By: Melissa Reed on 08-22-2024 Urea nitrogen/Creatinine [Mass ratio] 21.6 mg/mg High - [facility] Basic Metabolic Profile (BMP )on 08-22-2024 BUN/CRE 21.6 RATIO High - [facility] Comment on above: Performed By: #### L 501.5200, L500.2500 #### [facility] [address] [place], [address] Calcium [Mass/Vol] 8.8 mg/dL Normal 7.6-11.0 [facility] Comment on above: Performed By: #### L 501.5200, L500.2500 #### [facility] [address] [place], [address] Chloride [Moles/Vol] 103 mmol/L Normal 98-108 [facility] Comment on above: Performed By: #### L 501.5200, L500.2500 #### [facility] [address] [place], [address] CO2 [Moles/Vol] 24.4 mmol/L Normal 21.0-32.0 [facility] Comment on above: Performed By: #### L 501.5200, L500.2500 #### [facility] [address] [place], [address] Creatinine [Mass/Vol] 1.14 mg/dL Normal 0.70-1.20 [facility] Comment on above: Performed By: #### L 501.5200, L500.2500 #### [facility] [address] [place], [address] GAP 11 Normal -15 [facility] Comment on above: Performed By: #### L 501.5200, L500.2500 #### [facility] [address] [place], [address] GFR/1.73 sq M.predicted among non-blacks MDRD (S/P/Bld) [Vol rate/Area] 49 mL/min/{1.73_m2} Low >60 [facility] Comment on above: Result Comment: mL/m in/1.73m2 CKD-EPI Creatinine Equation (2020) Performed By: #### L 501.5200, L500.2500 #### [facility] [address] [place], [address] Glucose [Mass/Vol] 104 mg/dL High 70-99 [facility] Comment on above: Performed By: #### L 501.5200, L500.2500 #### [facility] [address] [place], [address] Potassium [Moles/Vol] 4.1 mmol/L Normal 3.3-5.1 [facility] Comment on above: Result Comment: Hemo lysis present, Results??could be affected. ?? Performed By: #### L 501.5200, L500.2500 #### [facility] [address] [place], [address] Sodium [Moles/Vol] 138 mmol/L Normal 133-145 [facility] Comment on above: Performed By: #### L 501.5200, L500.2500 #### [facility] [address] [place], [address] Urea nitrogen [Mass/Vol] 25 mg/dL High 4-19 [facility] Comment on above: Performed By: #### L 501.5200, L500.2500 #### [facility] [address] [place], [address] Carbon dioxide, total [Moles /volume] in Central venous bloodOrdered By: Melissa Reed on 08-22-2024 CO2 [Moles/Vol] 24.4 mmol/L 21.0-32.0 [facility] Chloride assayOrdered By: Sd Reed on 08-22-2024 Chloride [Moles/Vol] 103 mmol/L 98-108 [facility] GFR/1.73 sq M.predicted denise g non-blacks MDRD (S/P/Bld) [Vol rate/Area]Ordered By: Melissa Reed on 08-22-2024 Estimated GFR (MDRD) Non-Af Amer 49 Low >60 [facility] Comment on above: mL/min/1.73m2 CKD-EP I Creatinine Equation (2020) Glomerular filtration rate ( GFR) estimation/1.73 sq m using serum, plasma, or whole bOrdered By: Melissa Reed on 08-22-2024 GFR/1.73 sq M.predicted among non-blacks MDRD (S/P/Bld) [Vol rate/Area] 49 mL/min/{1.73_m2} Low >60 [facility] Comment on above: mL/min/1.73m2 CKD-EP I Creatinine Equation (2020) Magnesiumon 08-22-2024 Magnesium [Mass/Vol] 2.3 mg/dL High 1.5-2.2 [facility] Comment on above: Performed By: #### L 501.5200, L500.2500 #### [facility] [address] [place] [address], [address] Magnesium (Unsp spec) [Mass/ Vol]Ordered By: Melissa Reed on 08-22-2024 Magnesium [Mass/Vol] 2.3 mg/dL High 1.5-2.2 [facility] Magnesium measurement (mass/ volume)Ordered By: Melissa eRed on 08-22-2024 Magnesium (Unsp spec) [Mass/Vol] 2.3 mg/dL High 1.5-2.2 [facility] Potassium (Unsp spec) [Mass/ Vol]Ordered By: Melissa Reed on 08-22-2024 Potassium [Moles/Vol] 4.1 mmol/L 3.3-5.1 [facility] Comment on above: Hemolysis present, R esults could be affected. Potassium measurement (mass/ volume)Ordered By: Melissa Reed on 08-22-2024 Potassium (Unsp spec) [Mass/Vol] 4.1 mmol/L 3.3-5.1 [facility] Comment on above: Hemolysis present, R esults could be affected. Serum creatinine measurement (mass/volume)Ordered By: Melissa Reed on 08-22-2024 Creatinine [Mass/Vol] 1.14 mg/dL 0.70-1.20 [facility] Serum glucose measurement (m ass/volume)Ordered By: Melissa Reed on 08-22-2024 Glucose [Mass/Vol] 104 mg/dL High 70-99 [facility] Serum or plasma calcium danae urement (mass/volume)Ordered By: Melissa Reed on 08-22-2024 Calcium [Mass/Vol] 8.8 mg/dL 7.6-11.0 [facility] Serum or plasma urea nitroge n measurement (mass/volume)Ordered By: Melissa Reed on 08-22-2024 Urea nitrogen [Mass/Vol] 25 mg/dL High 4-19 [facility] Sodium levelOrdered By: Rubin Reed on 08-22-2024 Sodium [Moles/Vol] 138 mmol/L 133-145 [facility] Urine Cultureon 08-10-2024 [facility] Copy of report sent to Infection Control Printer [id number] 08/10/24 0702 MARYLOU. ESBL Escherichia coli Free Soil Count 80,000-100,000 ESBL Escherichia coli: REACTION Ampicillin [...] S Tobramycin Islt LAVINIA <=1 S Normal [facility] Comment on above: Performed By: #### M 100.2200, [id number] #### [facility] [address] [place], [address] Basic Metabolic Profile (BMP )on 08-08-2024 BUN/CRE 27.6 RATIO High 04-07 [facility] Comment on above: Performed By: #### M 100.2200, [id number] #### [facility] [address] [place], [address] CA,Total 8.6 mg/dL Normal 8.5-10.1 [facility] Comment on above: Performed By: #### M 100.2200, [id number] #### [facility] [address] [place], [address] Chloride [Moles/Vol] 103 mmol/L Normal 98-107 [facility] Comment on above: Performed By: #### M 100.2200, [id number] #### [facility] [address] [place], [address] CO2 [Moles/Vol] 31.0 mmol/L Normal 21.0-32.0 [facility] Comment on above: Performed By: #### M 100.2200, [id number] #### [facility] [address] [place], [address] Creatinine [Mass/Vol] 1.23 mg/dL High 0.55-1.02 [facility] Comment on above: Result Comment: The validity of the calculated GFR GFRAA in patients over 70 years has not been determined. Clinical correlation is essential. Performed By: #### M 100.2200, [id number] #### [facility] [address] [place], [address] EST GFR - AA 54 mL/min Low >60 [facility] Comment on above: Result Comment: Afri can Ethiopian GFR Calc Performed By: #### M 100.2200, [id number] #### [facility] [address] [place], [address] GAP 4 Low 5-15 [facility] Comment on above: Performed By: #### M 100.2200, [id number] #### [facility] [address] [place], [address] GFR/1.73 sq M.predicted among non-blacks MDRD (S/P/Bld) [Vol rate/Area] 45 mL/min/{1.73_m2} Low >60 [facility] Comment on above: Result Comment: Non- GFR Calc Performed By: #### M 100.2200, [id number] #### [facility] [address] [place], [address] Glucose [Mass/Vol] 192 mg/dL High 74-106 [facility] Comment on above: Result Comment: Fast ing Glucose result greater than or equal to 126 mg/dL suggests DIABETES MELLITUS per A.D.A. criteria. Performed By: #### M 100.2200, [id number] #### [facility] [address] [place], [address] Potassium [Moles/Vol] 4.1 mmol/L Normal 3.5-5.1 [facility] Comment on above: Performed By: #### M 100.2200, [id number] #### [facility] [address] [place], [address] Sodium [Moles/Vol] 138 mmol/L Normal 136-145 [facility] Comment on above: Performed By: #### M 100.2200, [id number] #### [facility] [address] [place], [address] Urea nitrogen [Mass/Vol] 34 mg/dL High 7-18 [facility] Comment on above: Performed By: #### M 100.2200, [id number] #### [facility] [address] [place], [address] Blood urea nitrogen (BUN)/cr eatinine ratioOrdered By: Melissa Reed on 08-08-2024 Urea nitrogen/Creatinine [Mass ratio] 27.6 mg/mg High 10-20 [facility] Carbon dioxide measurementOr dered By: Melissa Reed on 08-08-2024 CO2 [Moles/Vol] 31.0 mmol/L 21.0-32.0 [facility] Chloride measurementOrdered By: Melissa Reed on 08-08-2024 Chloride [Moles/Vol] 103 mmol/L 98-107 [facility] Estimated glomerular filtrat ion rate (GFR) AmericanOrdered By: Melissa Reed on 08-08-2024 Estimated GFR (MDRD) Amer 54 mL/min Low >60 [facility] Comment on above: GFR Calc Glomerular filtration rate ( GFR) estimationOrdered By: Melissa Reed on 08-08-2024 Estimated GFR (MDRD) Non-Af Amer 45 mL/min Low >60 [facility] Comment on above: Non- GFR Calc GFR/1.73 sq M.predicted among non-blacks MDRD (S/P/Bld) [Vol rate/Area] 45 mL/min/{1.73_m2} Low >60 [facility] Comment on above: Non- GFR Calc Glucose measurementOrdered B y: Melissa Reed on 08-08-2024 Glucose [Mass/Vol] 192 mg/dL High 74-106 [facility] Comment on above: Fasting Glucose resu lt greater than or equal to 126 mg/dL suggests DIABETES MELLITUS per A.D.A. criteria. Magnesiumon 08-08-2024 Magnesium [Mass/Vol] 2.2 mg/dL Normal 1.6-2.6 [facility] Comment on above: Performed By: #### M 100.2200, [id number] #### [facility] [address] [place], [address] Magnesium measurementOrdered By: Melissa Reed on 08-08-2024 Magnesium [Mass/Vol] 2.2 mg/dL 1.6-2.6 [facility] Potassium measurementOrdered By: Melissa Reed on 08-08-2024 Potassium [Moles/Vol] 4.1 mmol/L 3.5-5.1 [facility] Serum anion gap measurementO rdered By: Melissa Reed on 08-08-2024 Anion gap [Moles/Vol] 4 mmol/L Low 5-15 [facility] Serum or plasma calcium danae urement (mass/volume)Ordered By: Melissa Reed on 08-08-2024 Calcium [Mass/Vol] 8.6 mg/dL 8.5-10.1 [facility] Serum or plasma creatinine m easurement (mass/volume)Ordered By: Melissa Reed on 08-08-2024 Creatinine [Mass/Vol] 1.23 mg/dL High 0.55-1.02 [facility] Comment on above: The validity of the calculated GFR & GFRAA in patients over 70 years has not been determined. Clinical correlation is essential. Serum or plasma urea nitroge n measurement (mass/volume)Ordered By: Melissa Reed on 08-08-2024 Urea nitrogen [Mass/Vol] 34 mg/dL High 7-18 [facility] Sodium levelOrdered By: Rubin Reed on 08-08-2024 Sodium [Moles/Vol] 138 mmol/L 136-145 [facility] Urinalysis, Completeon 08-07 BACTERIA 4+ /hpf Normal None Seen [facility] Comment on above: Order Comment: CLEAN CATCH Performed By: #### M 100.2200, [id number] #### [facility] [address] [place], [address] EPI,SQUAMOUS 0-5 SEEN Normal 5-10 [facility] Comment on above: Order Comment: CLEAN CATCH Performed By: #### M 100.2200, [id number] #### [facility] [address] [place], [address] RBC 0-5 SEEN Normal 0-5 [facility] Comment on above: Order Comment: CLEAN CATCH Performed By: #### M 100.2200, [id number] #### [facility] [address] [place], [address] WBC 10-25 SEEN Normal 0-5 [facility] Comment on above: Order Comment: CLEAN CATCH Performed By: #### M 100.2200, [id number] #### [facility] [address] [place], [address] Mucus Ql (Urine sed) 0 SEEN Normal [facility] Comment on above: Order Comment: CLEAN CATCH Performed By: #### M 100.2200, [id number] #### [facility] [address] [place], [address] Bilirubin Test strip Ql (U)O rdered By: Melissa Reed on 08-06-2024 Bilirubin Ql (U) Negative Negative [facility] Epithelial cells.squamous LM Ql (Urine sed)Ordered By: Melissa Reed on 08-06-2024 Epithelial cells.squamous LM.HPF (Urine sed) [#/Area] 0 /[HPF] 5-10 [facility] Glucose Ql (U)Ordered By: Sd Reed on 08-06-2024 Urine Glucose (UA) Normal mg/dl Normal [facility] Ketones Test strip Ql (U)Ord ered By: Melissa Reed on 08-06-2024 Ketones Ql (U) Negative Negative [facility] Microscopic analysis of urin e for red blood cells (RBC)Ordered By: Melissa Reed on 08-06-2024 Microscopic analysis of urine for red blood cells (RBC) 0-5 SEEN /hpf 0-5 [facility] Urine RBC 0-5 SEEN /hpf 0-5 [facility] Mucus LM Ql (Urine sed)Order ed By: Melissa Reed on 02-18-2025 Mucus Ql (Urine sed) 0 SEEN /hpf [facility] Nitrite Test strip Ql (U)Ord ered By: Melissa Reed on 08-06-2024 Nitrite Ql (U) Positive High Negative [facility] Protein Test strip Ql (U)Ord ered By: Melissa Reed on 08-06-2024 Protein Ql (U) Negative Negative [facility] Squamous epithelial cells de tection in urine sediment by light microscopyOrdered By: Melissa Reed on 08-06-2024 Epithelial cells.squamous LM Ql (Urine sed) 0-5 SEEN /hpf 5-10 [facility] Urine blood detectionOrdered By: Melissa Reed on 08-06-2024 Urine Occult Blood Negative Negative [facility] Urine clarityOrdered By: Lillian Reed on 08-06-2024 Clarity (U) Cloudy Clear [facility] Urine color determinationOrd ered By: Melissa Reed on 08-06-2024 Color (U) Yellow Yellow [facility] Urine cultureOrdered By: Lillian Reed on 08-06-2024 Bacteria identified Cx Nom (U) ESBL Escherichia coli Abnormal [facility] Urine glucose detectionOrder ed By: Melissa Reed on 08-06-2024 Glucose Ql (U) Normal mg/dl Normal [facility] Urine leukocyte esterase det ection by dipstickOrdered By: Melissa Reed on 08-06-2024 Leukocyte esterase Test strip Ql (U) 500 /ul High Negative [facility] Urine pHOrdered By: Melissa kerr on 08-06-2024 pH (U) 7.0 [pH] 5.0 - 8.0 [facility] Urine sediment bacteria coun t by microscopy (number/high power field)Ordered By: Melissa Reed on 08-06-2024 Bacteria LM.HPF (Urine sed) [#/Area] 4 /[HPF] None Seen [facility] Urine specific gravity measu rementOrdered By: Melissa Reed on 08-06-2024 Specific gravity (U) [Rel density] 1.010 1.002-1.030 [facility] Urine urobilinogen measureme ntOrdered By: Melissa Reed on 08-06-2024 Urobilinogen Ql (U) Normal mg/dl Normal [facility] Urobilinogen Ql (U)Ordered B y: Melissa Reed on 08-06-2024 Urine Urobilinogen Normal mg/dl Normal [facility] White blood cell countOrdere d By: Melissa Reed on 08-06-2024 Urine WBC 10-25 SEEN /hpf 0-5 [facility] White blood cell count 10-25 SEEN /hpf 0-5 [facility] Cerv Spine 2 or 3 Viewson Cerv Spine 2 or 3 Views [facility] [address] [place], [place] [address] Cerv Spine 2 or 3 Views MR#: [id number] Acct: [id number] Name: RADHA SANDOVAL Rep #: [id number] : 1945 F 78 From: Abner Castro DO PCP: Melissa Reed MD Status: REG CLI Study: Cerv Spine 2 or 3 Views Date of Exam: 07/31/24 Exam# [id number] Ordering Dr: Gypsy Argueta MD PROCEDURE: CERVICAL [...] Reversal of the cervical lordosis. Reading Location: [facility] CC: Dr. Gypsy Argueta MD; Melissa Reed MD [place] Guide: Signed Normal [facility] Shoulder min 2 Viewson 07-31 Shoulder min 2 Views [facility] [address] [place] [address] Shoulder min 2 Views MR#: [id number] Acct: [id number] Name: RADHA SANDOVAL Rep #: [id number] : 1945 F 78 From: Devendra Magallon PCP: Melissa Reed MD Status: REG CLI Study: Shoulder min 2 Views Date of Exam: 07/31/24 Exam# [id number] Ordering Dr: Gypsy Argueta MD PROCEDURE: Left shoulder radiographs REASON FOR EXAM: Pain TECHNIQUE: Four views of the left shoulder COMPARISON: None FINDINGS: See impression RAD/Shoulder min 2 Views IMPRESSION: Chronic fracture of the humeral neck with lateral plate/screw fixation hardware in place. Severe glenohumeral joint osteoarthritis. Negative for acute displaced fracture or dislocation. Acromioclavicular joint is intact. Reading Location: [facility] CC: Dr. Gypsy Argueta MD; Melissa Reed MD [place] Guide: Signed Normal [facility] Shoulder min 2 Views [facility] [address] [place] [address] Shoulder min 2 Views MR#: [id number] Acct: [id number] Name: RADHA SANDOVAL Rep #: [id number] : 1945 F 78 From: Devendra Magallon PCP: Melissa Reed MD Status: REG CLI Study: Shoulder min 2 Views Date of Exam: 07/31/24 Exam# [id number] Ordering Dr: Gypsy Argueta MD PROCEDURE: Right shoulder radiographs REASON FOR EXAM: Pain TECHNIQUE: Five views of the right shoulder COMPARISON: None. FINDINGS: See impression RAD/Shoulder min 2 Views IMPRESSION: Limited exam due to patient immobility. Negative for acute displaced fracture or dislocation. Probable severe glenohumeral joint osteoarthritis. Acromioclavicular joint is intact. Reading Location: [facility] CC: Dr. Gypsy Argueta MD; Melissa Reed MD [place] Guide: Signed Normal [facility] Basic Metabolic Profile (BMP )on 07-25-2024 BUN/CRE 26.7 RATIO High 10-20 [facility] Comment on above: Order Comment: 157 Performed By: #### M 100.2200, L400.0001 #### [facility] [address] [place], [address] CA,Total 9.1 mg/dL Normal 8.5-10.1 [facility] Comment on above: Order Comment: 157 Performed By: #### M 100.2200, [id number] #### [facility] [address] [place], [address] Chloride [Moles/Vol] 103 mmol/L Normal 98-107 [facility] Comment on above: Order Comment: 157 Performed By: #### M 100.2200, [id number] #### [facility] [address] [place], [address] CO2 [Moles/Vol] 31.0 mmol/L Normal 21.0-32.0 [facility] Comment on above: Order Comment: 157 Performed By: #### M 100.2200, [id number] #### [facility] [address] [place], [address] Creatinine [Mass/Vol] 0.97 mg/dL Normal 0.55-1.02 [facility] Comment on above: Order Comment: 157 Result Comment: The validity of the calculated GFR GFRAA in patients over 70 years has not been determined. Clinical correlation is essential. Performed By: #### M 100.2200, [id number] #### [facility] [address] [place], [address] EST GFR - AA 71 mL/min Normal >60 [facility] Comment on above: Order Comment: 157 Result Comment: Afri can Ethiopian GFR Calc Performed By: #### M 100.2200, [id number] #### [facility] [address] [place], [address] GAP 4 Low 5-15 [facility] Comment on above: Order Comment: 157 Performed By: #### M 100.2200, [id number] #### [facility] [address] [place], [address] GFR/1.73 sq M.predicted among non-blacks MDRD (S/P/Bld) [Vol rate/Area] 58 mL/min/{1.73_m2} Low >60 [facility] Comment on above: Order Comment: 157 Result Comment: Non- GFR Calc Performed By: #### M 100.0, L400.0001 #### [facility] [address] [place], [address] Glucose [Mass/Vol] 120 mg/dL High 74-106 [facility] Comment on above: Order Comment: 157 Result Comment: Fast ing Glucose result from 100 to 125 mg/dL suggests IMPAIRED HOMEOSTASIS per A.D.A. criteria. Performed By: #### M 100.0, L400.0001 #### [facility] [address] [place], [address] Potassium [Moles/Vol] 3.9 mmol/L Normal 3.5-5.1 [facility] Comment on above: Order Comment: 157 Performed By: #### M 100.2200, [id number] #### [facility] [address] [place], [address] Sodium [Moles/Vol] 138 mmol/L Normal 136-145 [facility] Comment on above: Order Comment: 157 Performed By: #### M 100.2200, [id number] #### [facility] [address] [place], [address] Urea nitrogen [Mass/Vol] 26 mg/dL High 7-18 [facility] Comment on above: Order Comment: 157 Performed By: #### M 100.2200, [id number] #### [facility] [address] [place], [place], [address] Blood urea nitrogen (BUN)/cr eatinine ratioOrdered By: Melissa Reed on 07-25-2024 Urea nitrogen/Creatinine [Mass ratio] 26.7 mg/mg High 10-20 [facility] Carbon dioxide measurementOr dered By: Melissa Reed on 07-25-2024 CO2 [Moles/Vol] 31.0 mmol/L 21.0-32.0 [facility] Chloride measurementOrdered By: Melissa Reed on 07-25-2024 Chloride [Moles/Vol] 103 mmol/L 98-107 [facility] Estimated glomerular filtrat ion rate (GFR) AmericanOrdered By: Melissa Reed on 07-25-2024 Estimated GFR (MDRD) Amer 71 mL/min >60 [facility] Comment on above: GFR Calc Glomerular filtration rate ( GFR) estimationOrdered By: Melissa Reed on 07-25-2024 Estimated GFR (MDRD) Non-Af Amer 58 mL/min Low >60 [facility] Comment on above: Non- GFR Calc Glucose measurementOrdered B y: Melissa Reed on 07-25-2024 Glucose [Mass/Vol] 120 mg/dL High 74-106 [facility] Comment on above: Fasting Glucose resu lt from 100 to 125 mg/dL suggests IMPAIRED HOMEOSTASIS per A.D.A. criteria. Magnesiumon 07-25-2024 Magnesium [Mass/Vol] 2.2 mg/dL Normal 1.6-2.6 [facility] Comment on above: Order Comment: 157 Performed By: #### M 100.2200, [id number] #### [facility] [address] [place], [place], [id number] Magnesium measurementOrdered By: Melissa Reed on 07-25-2024 Magnesium [Mass/Vol] 2.2 mg/dL 1.6-2.6 [facility] Potassium measurementOrdered By: Melissa Reed on 07-25-2024 Potassium [Moles/Vol] 3.9 mmol/L 3.5-5.1 [facility] Serum anion gap measurementO rdered By: Melissa Reed on 07-25-2024 Anion gap [Moles/Vol] 4 mmol/L Low 5-15 [facility] Serum or plasma calcium danae urement (mass/volume)Ordered By: Melissa Reed on 07-25-2024 Calcium [Mass/Vol] 9.1 mg/dL 8.5-10.1 [facility] Serum or plasma creatinine m easurement (mass/volume)Ordered By: Melissa Reed on 07-25-2024 Creatinine [Mass/Vol] 0.97 mg/dL 0.55-1.02 [facility] Comment on above: The validity of the calculated GFR & GFRAA in patients over 70 years has not been determined. Clinical correlation is essential. Serum or plasma urea nitroge n measurement (mass/volume)Ordered By: Melissa Reed on 07-25-2024 Urea nitrogen [Mass/Vol] 26 mg/dL High 7-18 [facility] Sodium levelOrdered By: Rubin Reed on 07-25-2024 Sodium [Moles/Vol] 138 mmol/L 136-145 [facility] Basic Metabolic Profile (BMP )on 07-11-2024 BUN/CRE 30.4 RATIO High 10-20 [facility] Comment on above: Order Comment: 157 Performed By: #### M 100.2200, [id number] #### [facility] [address] [place], [address] CA,Total 9.0 mg/dL Normal 8.5-10.1 [facility] Comment on above: Order Comment: 157 Performed By: #### M 100.2200, [id number] #### [facility] [address] [place], [address] Chloride [Moles/Vol] 103 mmol/L Normal 98-107 [facility] Comment on above: Order Comment: 157 Performed By: #### M 100.2200, [id number] #### [facility] [address] [place], [address] CO2 [Moles/Vol] 32.0 mmol/L Normal 21.0-32.0 [facility] Comment on above: Order Comment: 157 Performed By: #### M 100.2200, [id number] #### [facility] [address] [place], [address] Creatinine [Mass/Vol] 0.86 mg/dL Normal 0.55-1.02 [facility] Comment on above: Order Comment: 157 Result Comment: The validity of the calculated GFR GFRAA in patients over 70 years has not been determined. Clinical correlation is essential. Performed By: #### M 100.2200, [id number] #### [facility] [address] [place], [address] EST GFR - AA 82 mL/min Normal >60 [facility] Comment on above: Order Comment: 157 Result Comment: Afri can Ethiopian GFR Calc Performed By: #### M 100.2200, [id number] #### [facility] [address] [place], [address] GAP 5 Normal 5-15 [facility] Comment on above: Order Comment: 157 Performed By: #### M 100.2200, [id number] #### [facility] [address] [place], [address] GFR/1.73 sq M.predicted among non-blacks MDRD (S/P/Bld) [Vol rate/Area] 68 mL/min/{1.73_m2} Normal >60 [facility] Comment on above: Order Comment: 157 Result Comment: Non- GFR Calc Performed By: #### M 100.2200, [id number] #### [facility] [address] [place], [address] Glucose [Mass/Vol] 109 mg/dL High 74-106 [facility] Comment on above: Order Comment: 157 Result Comment: Fast ing Glucose result from 100 to 125 mg/dL suggests IMPAIRED HOMEOSTASIS per A.D.A. criteria. Performed By: #### M 100.2200, [id number] #### [facility] [address] [place], [address] Potassium [Moles/Vol] 4.1 mmol/L Normal 3.5-5.1 [facility] Comment on above: Order Comment: 157 Performed By: #### M 100.2200, [id number] #### [facility] [address] [place], [address] Sodium [Moles/Vol] 140 mmol/L Normal 136-145 [facility] Comment on above: Order Comment: 157 Performed By: #### M 100.2200, [id number] #### [facility] [address] [place], [address] Urea nitrogen [Mass/Vol] 26 mg/dL High 7-18 [facility] Comment on above: Order Comment: 157 Performed By: #### M 100.2200, [id number] #### [facility] [address] [place], [address] Blood urea nitrogen (BUN)/cr eatinine ratioOrdered By: Melissa Reed on 07-11-2024 Urea nitrogen/Creatinine [Mass ratio] 30.4 mg/mg High 10-20 [facility] Carbon dioxide measurementOr dered By: Melissa Reed on 07-11-2024 CO2 [Moles/Vol] 32.0 mmol/L 21.0-32.0 [facility] Chloride measurementOrdered By: Melissa Reed on 07-11-2024 Chloride [Moles/Vol] 103 mmol/L 98-107 [facility] Estimated glomerular filtrat ion rate (GFR) AmericanOrdered By: Melissa Reed on 07-11-2024 Estimated GFR (MDRD) Amer 82 mL/min >60 [facility] Comment on above: GFR Calc Glomerular filtration rate ( GFR) estimationOrdered By: Melissa Reed on 07-11-2024 Estimated GFR (MDRD) Non-Af Amer 68 mL/min >60 [facility] Comment on above: Non- GFR Calc Glucose measurementOrdered B y: Melissa Reed on 07-11-2024 Glucose [Mass/Vol] 109 mg/dL High 74-106 [facility] Comment on above: Fasting Glucose resu lt from 100 to 125 mg/dL suggests IMPAIRED HOMEOSTASIS per A.D.A. criteria. Magnesiumon 07-11-2024 Magnesium [Mass/Vol] 2.2 mg/dL Normal 1.6-2.6 [facility] Comment on above: Order Comment: 157 Performed By: #### M 100.2200, [id number] #### [facility] [address] [place] [address]. [place], [place], [address] Magnesium measurementOrdered By: Melissa Reed on 07-11-2024 Magnesium [Mass/Vol] 2.2 mg/dL 1.6-2.6 [facility] Potassium measurementOrdered By: Melissa Reed on 07-11-2024 Potassium [Moles/Vol] 4.1 mmol/L 3.5-5.1 [facility] Serum anion gap measurementO rdered By: Melissa Reed on 07-11-2024 Anion gap [Moles/Vol] 5 mmol/L 5-15 [facility] Serum or plasma calcium danae urement (mass/volume)Ordered By: Melissa Reed on 07-11-2024 Calcium [Mass/Vol] 9.0 mg/dL 8.5-10.1 [facility] Serum or plasma creatinine m easurement (mass/volume)Ordered By: Melissa Reed on 07-11-2024 Creatinine [Mass/Vol] 0.86 mg/dL 0.55-1.02 [facility] Comment on above: The validity of the calculated GFR & GFRAA in patients over 70 years has not been determined. Clinical correlation is essential. Serum or plasma urea nitroge n measurement (mass/volume)Ordered By: Melissa Reed on 07-11-2024 Urea nitrogen [Mass/Vol] 26 mg/dL High 7-18 [facility] Sodium levelOrdered By: Rubin Reed on 07-11-2024 Sodium [Moles/Vol] 140 mmol/L 136-145 [facility] Basic Metabolic Profile (BMP )on 06-27-2024 BUN/CRE 23.7 RATIO High 10-20 [facility] Comment on above: Order Comment: 157 Performed By: #### M 100.2200, L400.0001 #### [facility] [address] [place], [address] CA,Total 8.7 mg/dL Normal 8.5-10.1 [facility] Comment on above: Order Comment: 157 Performed By: #### M 100.2200, L400.0001 #### [facility] [address] [place], [address] Chloride [Moles/Vol] 105 mmol/L Normal 98-107 [facility] Comment on above: Order Comment: 157 Performed By: #### M 100.2200, L400.0001 #### [facility] [address] [place], [address] CO2 [Moles/Vol] 31.0 mmol/L Normal 21.0-32.0 [facility] Comment on above: Order Comment: 157 Performed By: #### M 100.2200, L400.0001 #### [facility] [address] [place], [address] Creatinine [Mass/Vol] 1.18 mg/dL High 0.55-1.02 [facility] Comment on above: Order Comment: 157 Result Comment: The validity of the calculated GFR GFRAA in patients over 70 years has not been determined. Clinical correlation is essential. Performed By: #### M 100.2200, L400.0001 #### [facility] [address] [place], [address] EST GFR - AA 57 mL/min Low >60 [facility] Comment on above: Order Comment: 157 Result Comment: Afri can Ethiopian GFR Calc Performed By: #### M 100.2200, L400.0001 #### [facility] [address] [place], [address] GAP 4 Low 5-15 [facility] Comment on above: Order Comment: 157 Performed By: #### M 100.2200, L400.0001 #### [facility] [address] [place], [address] GFR/1.73 sq M.predicted among non-blacks MDRD (S/P/Bld) [Vol rate/Area] 47 mL/min/{1.73_m2} Low >60 [facility] Comment on above: Order Comment: 157 Result Comment: Non- GFR Calc Performed By: #### M 100.2199, L400.0001 #### [facility] [address] [place], [address] Glucose [Mass/Vol] 85 mg/dL Normal 74-106 [facility] Comment on above: Order Comment: 157 Performed By: #### M 100.2199, L400.0001 #### [facility] [address] [place], [address] Potassium [Moles/Vol] 3.8 mmol/L Normal 3.5-5.1 [facility] Comment on above: Order Comment: 157 Performed By: #### M 100.2200, L400.0001 #### [facility] [address] [place], [address] Sodium [Moles/Vol] 140 mmol/L Normal 136-145 [facility] Comment on above: Order Comment: 157 Performed By: #### M 100.2200, L400.0001 #### [facility] [address] [place], [address] Urea nitrogen [Mass/Vol] 28 mg/dL High 7-18 [facility] Comment on above: Order Comment: 157 Performed By: #### M 100.2200, L400.0001 #### [facility] [address] [place], [place], [id number] Blood urea nitrogen (BUN)/cr eatinine ratioOrdered By: Melissa Reed on 06-27-2024 Urea nitrogen/Creatinine [Mass ratio] 23.7 mg/mg High 10-20 [facility] Carbon dioxide measurementOr dered By: Melissa Reed on 06-27-2024 CO2 [Moles/Vol] 31.0 mmol/L 21.0-32.0 [facility] Chloride measurementOrdered By: Melissa Reed on 06-27-2024 Chloride [Moles/Vol] 105 mmol/L 98-107 [facility] Estimated glomerular filtrat ion rate (GFR) AmericanOrdered By: Melissa Reed on 06-27-2024 Estimated GFR (MDRD) Amer 57 mL/min Low >60 [facility] Comment on above: GFR Calc Glomerular filtration rate ( GFR) estimationOrdered By: Melissa Reed on 06-27-2024 Estimated GFR (MDRD) Non-Af Amer 47 mL/min Low >60 [facility] Comment on above: Non- GFR Calc Glucose measurementOrdered B y: Melissa Reed on 06-27-2024 Glucose [Mass/Vol] 85 mg/dL 74-106 [facility] Magnesiumon 06-27-2024 Magnesium [Mass/Vol] 2.2 mg/dL Normal 1.6-2.6 [facility] Comment on above: Order Comment: 157 Performed By: #### M 100.2200, L400.0001 #### [facility] [address] [place], [address] Magnesium measurementOrdered By: Melissa Reed on 06-27-2024 Magnesium [Mass/Vol] 2.2 mg/dL 1.6-2.6 [facility] Potassium measurementOrdered By: Melissa Reed on 06-27-2024 Potassium [Moles/Vol] 3.8 mmol/L 3.5-5.1 [facility] Serum anion gap measurementO rdered By: Melissa Reed on 06-27-2024 Anion gap [Moles/Vol] 4 mmol/L Low 5-15 [facility] Serum or plasma calcium danae urement (mass/volume)Ordered By: Melissa Reed on 06-27-2024 Calcium [Mass/Vol] 8.7 mg/dL 8.5-10.1 [facility] Serum or plasma creatinine m easurement (mass/volume)Ordered By: Melissa Reed on 06-27-2024 Creatinine [Mass/Vol] 1.18 mg/dL High 0.55-1.02 [facility] Comment on above: The validity of the calculated GFR & GFRAA in patients over 70 years has not been determined. Clinical correlation is essential. Serum or plasma urea nitroge n measurement (mass/volume)Ordered By: Melissa Reed on 06-27-2024 Urea nitrogen [Mass/Vol] 28 mg/dL High 7-18 [facility] Sodium levelOrdered By: Rubin Reed on 06-27-2024 Sodium [Moles/Vol] 140 mmol/L 136-145 [facility] Basic Metabolic Profile (BMP )on 06-13-2024 BUN/CRE 32.6 RATIO High 10-20 [facility] Comment on above: Performed By: #### L 501.5200, L500.2500 ####[facility] [address] [place], [address] CA,Total 8.7 mg/dL Normal 8.5-10.1 [facility] Comment on above: Performed By: #### L 501.5200, L500.2500 ####[facility] [address] [place], [address] Chloride [Moles/Vol] 105 mmol/L Normal 98-107 [facility] Comment on above: Performed By: #### L 501.5200, L500.2500 ####[facility] [address] [place], [address] CO2 [Moles/Vol] 28.0 mmol/L Normal 21.0-32.0 [facility] Comment on above: Performed By: #### L 501.5200, L500.2500 ####[facility] [address] [place], [address] Creatinine [Mass/Vol] 0.98 mg/dL Normal 0.55-1.02 [facility] Comment on above: Result Comment: The validity of the calculated GFR GFRAA in patients over 70 years has not been determined. Clinical correlation is essential. Performed By: #### L 501.5200, L500.2500 ####[facility] [address] [place], [address] EST GFR - AA 70 mL/min Normal >60 [facility] Comment on above: Result Comment: Afri can Ethiopian GFR Calc Performed By: #### L 501.5200, L500.2500 ####[facility] [address] [place], [address] GAP 5 Normal 5-15 [facility] Comment on above: Performed By: #### L 501.5200, L500.2500 ####[facility] [address] [place], [address] GFR/1.73 sq M.predicted among non-blacks MDRD (S/P/Bld) [Vol rate/Area] 58 mL/min/{1.73_m2} Low >60 [facility] Comment on above: Result Comment: Non- GFR Calc Performed By: #### L 501.5200, L500.2500 ####[facility] [address] [place], [address] Glucose [Mass/Vol] 161 mg/dL High 74-106 [facility] Comment on above: Result Comment: Fast ing Glucose result greater than or equal to 126 mg/dL suggests DIABETES MELLITUS per A.D.A. criteria. Performed By: #### L 501.5200, L500.2500 ####[facility] [address] [place], [address] Potassium [Moles/Vol] 3.8 mmol/L Normal 3.5-5.1 [facility] Comment on above: Result Comment: Slig ht Hemolysis, Result may be falsely increased. Performed By: #### L 501.5200, L500.2500 ####[facility] [address] [place], [address] Sodium [Moles/Vol] 138 mmol/L Normal 136-145 [facility] Comment on above: Performed By: #### L 501.5200, L500.2500 ####[facility] [address] [place], [address] Urea nitrogen [Mass/Vol] 32 mg/dL High 7-18 [facility] Comment on above: Performed By: #### L 501.5200, L500.2500 ####[facility] [address] [place], [address] Blood urea nitrogen (BUN)/cr eatinine ratioOrdered By: Melissa Reed on 06-13-2024 Urea nitrogen/Creatinine [Mass ratio] 32.6 mg/mg High 10-20 [facility] Carbon dioxide measurementOr dered By: Melissa Reed on 06-13-2024 CO2 [Moles/Vol] 28.0 mmol/L 21.0-32.0 [facility] Chloride measurementOrdered By: Melissa Reed on 06-13-2024 Chloride [Moles/Vol] 105 mmol/L 98-107 [facility] Estimated glomerular filtrat ion rate (GFR) AmericanOrdered By: Melissa Reed on 06-13-2024 Estimated GFR (MDRD) Amer 70 mL/min >60 [facility] Comment on above: GFR Calc Glomerular filtration rate ( GFR) estimationOrdered By: Melissa Reed on 06-13-2024 Estimated GFR (MDRD) Non-Af Amer 58 mL/min Low >60 [facility] Comment on above: Non- GFR Calc Glucose measurementOrdered B y: Melissa Reed on 06-13-2024 Glucose [Mass/Vol] 161 mg/dL High 74-106 [facility] Comment on above: Fasting Glucose resu lt greater than or equal to 126 mg/dL suggests DIABETES MELLITUS per A.D.A. criteria. Magnesiumon 06-13-2024 Magnesium [Mass/Vol] 2.2 mg/dL Normal 1.6-2.6 [facility] Comment on above: Result Comment: Slig ht Hemolysis, Result may be falsely increased. Performed By: #### L 501.5200, L500.2500 ####[facility] [address] [place], [address] Magnesium measurementOrdered By: Melissa Reed on 06-13-2024 Magnesium [Mass/Vol] 2.2 mg/dL 1.6-2.6 [facility] Comment on above: Slight Hemolysis, Re sult may be falsely increased. Potassium measurementOrdered By: Melissa Reed on 06-13-2024 Potassium [Moles/Vol] 3.8 mmol/L 3.5-5.1 [facility] Comment on above: Slight Hemolysis, Re sult may be falsely increased. Serum anion gap measurementO rdered By: Melissa Reed on 06-13-2024 Anion gap [Moles/Vol] 5 mmol/L 5-15 [facility] Serum or plasma calcium danae urement (mass/volume)Ordered By: Melissa Reed on 06-13-2024 Calcium [Mass/Vol] 8.7 mg/dL 8.5-10.1 [facility] Serum or plasma creatinine m easurement (mass/volume)Ordered By: Melissa Reed on 06-13-2024 Creatinine [Mass/Vol] 0.98 mg/dL 0.55-1.02 [facility] Comment on above: The validity of the calculated GFR & GFRAA in patients over 70 years has not been determined. Clinical correlation is essential. Serum or plasma urea nitroge n measurement (mass/volume)Ordered By: Melissa Reed on 06-13-2024 Urea nitrogen [Mass/Vol] 32 mg/dL High 7-18 [facility] Sodium levelOrdered By: Rubin Reed on 06-13-2024 Sodium [Moles/Vol] 138 mmol/L 136-145 [facility] Basic Metabolic Profile (BMP )on 05-29-2024 BUN/CRE 22.1 RATIO High 10-20 [facility] Comment on above: Order Comment: 157 Performed By: #### L 501.5200, L500.2500 #### [facility] [address] [place], [address] CA,Total 8.9 mg/dL Normal 8.5-10.1 [facility] Comment on above: Order Comment: 157 Performed By: #### L 501.5200, L500.2500 #### [facility] [address] [place], [address] Chloride [Moles/Vol] 106 mmol/L Normal 98-107 [facility] Comment on above: Order Comment: 157 Performed By: #### L 501.5200, L500.2500 #### [facility] [address] [place], [address] CO2 [Moles/Vol] 32.0 mmol/L Normal 21.0-32.0 [facility] Comment on above: Order Comment: 157 Performed By: #### L 501.5200, L500.2500 #### [facility] [address] [place], [address] Creatinine [Mass/Vol] 1.31 mg/dL High 0.55-1.02 [facility] Comment on above: Order Comment: 157 Result Comment: The validity of the calculated GFR GFRAA in patients over 70 years has not been determined. Clinical correlation is essential. Performed By: #### L 501.5200, L500.2500 #### [facility] [address] [place], [address] EST GFR - AA 50 mL/min Low >60 [facility] Comment on above: Order Comment: 157 Result Comment: Afri can Ethiopian GFR Calc Performed By: #### L 501.5200, L500.2500 #### [facility] [address] [place], [address] GAP 5 Normal 5-15 [facility] Comment on above: Order Comment: 157 Performed By: #### L 501.5200, L500.2500 #### [facility] [address] [place], [address] GFR/1.73 sq M.predicted among non-blacks MDRD (S/P/Bld) [Vol rate/Area] 41 mL/min/{1.73_m2} Low >60 [facility] Comment on above: Order Comment: 157 Result Comment: Non- GFR Calc Performed By: #### L 501.5200, L500.2500 #### [facility] [address] [place], [address] Glucose [Mass/Vol] 116 mg/dL High 74-106 [facility] Comment on above: Order Comment: 157 Result Comment: Fast ing Glucose result from 100 to 125 mg/dL suggests IMPAIRED HOMEOSTASIS per A.D.A. criteria. Performed By: #### L 501.5200, L500.2500 #### [facility] [address] [place], [address] Potassium [Moles/Vol] 3.6 mmol/L Normal 3.5-5.1 [facility] Comment on above: Order Comment: 157 Performed By: #### L 501.5200, L500.2500 #### [facility] [address] [place], [address] Sodium [Moles/Vol] 142 mmol/L Normal 136-145 [facility] Comment on above: Order Comment: 157 Performed By: #### L 501.5200, L500.2500 #### [facility] [address] [place], [address] Urea nitrogen [Mass/Vol] 29 mg/dL High 7-18 [facility] Comment on above: Order Comment: 157 Performed By: #### L 501.5200, L500.2500 #### [facility] [address] [place], [address] Blood urea nitrogen (BUN)/cr eatinine ratioOrdered By: Melissa Reed on 05-29-2024 Urea nitrogen/Creatinine [Mass ratio] 22.1 mg/mg High 10-20 [facility] Carbon dioxide measurementOr dered By: Melissa Reed on 05-29-2024 CO2 [Moles/Vol] 32.0 mmol/L 21.0-32.0 [facility] Chloride measurementOrdered By: Melissa Reed on 05-29-2024 Chloride [Moles/Vol] 106 mmol/L 98-107 [facility] Estimated glomerular filtrat ion rate (GFR) AmericanOrdered By: Melissa Reed on 05-29-2024 Estimated GFR (MDRD) Amer 50 mL/min Low >60 [facility] Comment on above: GFR Calc Glomerular filtration rate ( GFR) estimationOrdered By: Melissa Reed on 05-29-2024 Estimated GFR (MDRD) Non-Af Amer 41 mL/min Low >60 [facility] Comment on above: Non- GFR Calc Glucose measurementOrdered B y: Melissa Reed on 05-29-2024 Glucose [Mass/Vol] 116 mg/dL High 74-106 [facility] Comment on above: Fasting Glucose resu lt from 100 to 125 mg/dL suggests IMPAIRED HOMEOSTASIS per A.D.A. criteria. Magnesiumon 05-29-2024 Magnesium [Mass/Vol] 2.0 mg/dL Normal 1.6-2.6 [facility] Comment on above: Order Comment: 157 Performed By: #### L 501.5200, L500.2500 #### [facility] [address] [place], [place], [id number] Magnesium measurementOrdered By: Melissa Reed on 05-29-2024 Magnesium [Mass/Vol] 2.0 mg/dL 1.6-2.6 [facility] Potassium measurementOrdered By: Melissa Reed on 05-29-2024 Potassium [Moles/Vol] 3.6 mmol/L 3.5-5.1 [facility] Serum anion gap measurementO rdered By: Melissa Reed on 05-29-2024 Anion gap [Moles/Vol] 5 mmol/L 5-15 [facility] Serum or plasma calcium danae urement (mass/volume)Ordered By: Melissa Reed on 05-29-2024 Calcium [Mass/Vol] 8.9 mg/dL 8.5-10.1 [facility] Serum or plasma creatinine m easurement (mass/volume)Ordered By: Melissa Reed on 05-29-2024 Creatinine [Mass/Vol] 1.31 mg/dL High 0.55-1.02 [facility] Comment on above: The validity of the calculated GFR & GFRAA in patients over 70 years has not been determined. Clinical correlation is essential. Serum or plasma urea nitroge n measurement (mass/volume)Ordered By: Melissa Reed on 05-29-2024 Urea nitrogen [Mass/Vol] 29 mg/dL High 7-18 [facility] Sodium levelOrdered By: Rubin Reed on 05-29-2024 Sodium [Moles/Vol] 142 mmol/L 136-145 [facility] Basic Metabolic Profile (BMP )on 05-15-2024 BUN/CRE 31.1 RATIO High 10-20 [facility] Comment on above: Order Comment: 157 Performed By: #### L 501.5200, L500.2500 #### [facility] [address] [place], [address] CA,Total 8.7 mg/dL Normal 8.5-10.1 [facility] Comment on above: Order Comment: 157 Performed By: #### L 501.5200, L500.2500 #### [facility] [address] [place], [address] Chloride [Moles/Vol] 105 mmol/L Normal 98-107 [facility] Comment on above: Order Comment: 157 Performed By: #### L 501.5200, L500.2500 #### [facility] [address] [place], [address] CO2 [Moles/Vol] 30.0 mmol/L Normal 21.0-32.0 [facility] Comment on above: Order Comment: 157 Performed By: #### L 501.5200, L500.2500 #### [facility] [address] [place], [address] Creatinine [Mass/Vol] 1.06 mg/dL High 0.55-1.02 [facility] Comment on above: Order Comment: 157 Result Comment: The validity of the calculated GFR GFRAA in patients over 70 years has not been determined. Clinical correlation is essential. Performed By: #### L 501.5200, L500.2500 #### [facility] [address] [place], [address] EST GFR - AA 64 mL/min Normal >60 [facility] Comment on above: Order Comment: 157 Result Comment: Afri can Ethiopian GFR Calc Performed By: #### L 501.5200, L500.2500 #### [facility] [address] [place], [address] GAP 5 Normal 5-15 [facility] Comment on above: Order Comment: 157 Performed By: #### L 501.5200, L500.2500 #### [facility] [address] [place], [address] GFR/1.73 sq M.predicted among non-blacks MDRD (S/P/Bld) [Vol rate/Area] 53 mL/min/{1.73_m2} Low >60 [facility] Comment on above: Order Comment: 157 Result Comment: Non- GFR Calc Performed By: #### L 501.5200, L500.2500 #### [facility] [address] [place], [address] Glucose [Mass/Vol] 119 mg/dL High 74-106 [facility] Comment on above: Order Comment: 157 Result Comment: Fast ing Glucose result from 100 to 125 mg/dL suggests IMPAIRED HOMEOSTASIS per A.D.A. criteria. Performed By: #### L 501.5200, L500.2500 #### [facility] [address] [place], [address] Potassium [Moles/Vol] 3.6 mmol/L Normal 3.5-5.1 [facility] Comment on above: Order Comment: 157 Performed By: #### L 501.5200, L500.2500 #### [facility] [address] [place], [address] Sodium [Moles/Vol] 140 mmol/L Normal 136-145 [facility] Comment on above: Order Comment: 157 Performed By: #### L 501.5200, L500.2500 #### [facility] [address] [place], [address] Urea nitrogen [Mass/Vol] 33 mg/dL High 7-18 [facility] Comment on above: Order Comment: 157 Performed By: #### L 501.5200, L500.2500 #### [facility] [address] [place], [address] Magnesiumon 05-15-2024 Magnesium [Mass/Vol] 2.1 mg/dL Normal 1.6-2.6 [facility] Comment on above: Order Comment: 157 Performed By: #### L 501.5200, L500.2500 #### [facility] [address] [place], [address] Basic Metabolic Profile (BMP )on 05-01-2024 BUN/CRE 21.4 RATIO High 10-20 [facility] Comment on above: Order Comment: 157 Performed By: #### L 501.5200, L500.2500 #### [facility] [address] [place], [address] CA,Total 9.2 mg/dL Normal 8.5-10.1 [facility] Comment on above: Order Comment: 157 Performed By: #### L 501.5200, L500.2500 #### [facility] [address] [place], [address] Chloride [Moles/Vol] 106 mmol/L Normal 98-107 [facility] Comment on above: Order Comment: 157 Performed By: #### L 501.5200, L500.2500 #### [facility] [address] [place], [address] CO2 [Moles/Vol] 27.0 mmol/L Normal 21.0-32.0 [facility] Comment on above: Order Comment: 157 Performed By: #### L 501.5200, L500.2500 #### [facility] [address] [place], [address] Creatinine [Mass/Vol] 1.26 mg/dL High 0.55-1.02 [facility] Comment on above: Order Comment: 157 Result Comment: The validity of the calculated GFR GFRAA in patients over 70 years has not been determined. Clinical correlation is essential. Performed By: #### L 501.5200, L500.2500 #### [facility] [address] [place], [address] EST GFR - AA 53 mL/min Low >60 [facility] Comment on above: Order Comment: 157 Result Comment: Afri can Ethiopian GFR Calc Performed By: #### L 501.5200, L500.2500 #### [facility] [address] [place], [address] GAP 7 Normal 5-15 [facility] Comment on above: Order Comment: 157 Performed By: #### L 501.5200, L500.2500 #### [facility] [address] [place], [address] GFR/1.73 sq M.predicted among non-blacks MDRD (S/P/Bld) [Vol rate/Area] 43 mL/min/{1.73_m2} Low >60 [facility] Comment on above: Order Comment: 157 Result Comment: Non- GFR Calc Performed By: #### L 501.5200, L500.2500 #### [facility] [address] [place], [address] Glucose [Mass/Vol] 126 mg/dL High 74-106 [facility] Comment on above: Order Comment: 157 Result Comment: Fast ing Glucose result greater than or equal to 126 mg/dL suggests DIABETES MELLITUS per A.D.A. criteria. Performed By: #### L 501.5200, L500.2500 #### [facility] [address] [place], [address] Potassium [Moles/Vol] 4.3 mmol/L Normal 3.5-5.1 [facility] Comment on above: Order Comment: 157 Performed By: #### L 501.5200, L500.2500 #### [facility] [address] [place], [address] Sodium [Moles/Vol] 140 mmol/L Normal 136-145 [facility] Comment on above: Order Comment: 157 Performed By: #### L 501.5200, L500.2500 #### [facility] [address] [place], [address] Urea nitrogen [Mass/Vol] 27 mg/dL High 7-18 [facility] Comment on above: Order Comment: 157 Performed By: #### L 501.5200, L500.2500 #### [facility] [address] [place], [address] Magnesiumon 05-01-2024 Magnesium [Mass/Vol] 2.1 mg/dL Normal 1.6-2.6 [facility] Comment on above: Order Comment: 157 Performed By: #### L [id number], [id number] #### [facility] [address] [place], [place], [address] 36on 02-05-2024 36 Okay, thank you appreciate her letting us know [facility] 36 We had returned mail on patient---I called her to get her new address. She stated that she is in assisted living at [facility] and will not be a patient at our office. She also wanted Dr. Lopez to know that she appreciates everything that he has done for her over the years. [facility] Progress Noteon 01-03-2024 Progress Note error [facility] Progress Noteon 12-29-2023 Progress Note Please schedule AWV. Normal [facility] Progress Note Called patient---moustapha ne number is not working--sent letter by mail. [facility] 36on 10-27-2023 36 Spoke with jaylon Pascual it was a mistake and he did not need anything for the patient. [facility] 36on 10-26-2023 36 As far as I know she still considers us her primary care however she misses a lot of appointments and cancels at other times. [facility] 36 Name of caller: Ankur Valdivia Contact phone number: [phone] Relationship to Patient: [facility] Provider: Dr Lopez Practice: [facility] Chief Complaint/Reason for Call: Ankur Valdivia from [facility] would like to confirm that patient is still being treated at this office. Please advise. Best time of day caller can be reached: any Patient advised that office/PCP has 24-48 business hours to return their call: Yes [facility] Basophil percentageOrdered B y: Melissa Millskasidiony on 09-29-2023 Chloride [Moles/Vol] 106 mmol/L 98-107 [facility] Glucose [Mass/Vol] 165 mg/dL 74-106 [facility] Comment on above: Fasting Glucose resu lt greater than or equal to 126 mg/dL suggests DIABETES MELLITUS per A.D.A. criteria. Potassium [Moles/Vol] 3.5 mmol/L 3.5-5.1 [facility] Sodium [Moles/Vol] 135 mmol/L 136-145 [facility] - Chemistry and C hemistry - challengeOrdered By: Melissa Reed on 09-29-2023 CO2 [Moles/Vol] 26.0 mmol/L 21.0-32.0 [facility] Urea nitrogen/Creatinine [Mass ratio] 23.7 mg/mg 10-20 [facility] No Panel InformationOrdered By: Melissa Reed on 09-29-2023 Estimated GFR (MDRD) Amer 57 mL/min >60 [facility] Comment on above: GFR Calc Estimated GFR (MDRD) Non-Af Amer 47 mL/min >60 [facility] Comment on above: Non- GFR Calc Serum or plasma calcium danae urement (mass/volume)Ordered By: Melissa Reed on 09-29-2023 Calcium [Mass/Vol] 8.5 mg/dL 8.5-10.1 [facility] Serum or plasma creatinine m easurement (mass/volume)Ordered By: Melissa Reed on 09-29-2023 Creatinine [Mass/Vol] 1.18 mg/dL 0.55-1.02 [facility] Comment on above: The validity of the calculated GFR & GFRAA in patients over 70 years has not been determined. Clinical correlation is essential. Serum or plasma urea nitroge n measurement (mass/volume)Ordered By: Melissa Reed on 09-29-2023 Urea nitrogen [Mass/Vol] 28 mg/dL 7-18 [facility] Thin prep Papanicolaou smear with manual screeningOrdered By: Melissa Reed on 09-29-2023 Thin prep Papanicolaou smear with manual screening 3 5-15 [facility] Basophil percentageOrdered B y: Melissa Reed on 09-14-2023 Chloride [Moles/Vol] 106 mmol/L 98-107 [facility] Glucose [Mass/Vol] 191 mg/dL 74-106 [facility] Comment on above: Fasting Glucose resu lt greater than or equal to 126 mg/dL suggests DIABETES MELLITUS per A.D.A. criteria. Potassium [Moles/Vol] 3.8 mmol/L 3.5-5.1 [facility] Sodium [Moles/Vol] 138 mmol/L 136-145 [facility] - Chemistry and C hemistry - challengeOrdered By: Melissa Reed on 09-14-2023 CO2 [Moles/Vol] 29.0 mmol/L 21.0-32.0 [facility] Urea nitrogen/Creatinine [Mass ratio] 17.8 mg/mg 10-20 [facility] No Panel InformationOrdered By: Melissa Reed on 09-14-2023 Estimated GFR (MDRD) Amer 63 mL/min >60 [facility] Comment on above: GFR Calc Estimated GFR (MDRD) Non-Af Amer 52 mL/min >60 [facility] Comment on above: Non- GFR Calc Serum or plasma calcium danae urement (mass/volume)Ordered By: Melissa Reed on 09-14-2023 Calcium [Mass/Vol] 8.7 mg/dL 8.5-10.1 [facility] Serum or plasma creatinine m easurement (mass/volume)Ordered By: Melissa Reed on 09-14-2023 Creatinine [Mass/Vol] 1.07 mg/dL 0.55-1.02 [facility] Comment on above: The validity of the calculated GFR & GFRAA in patients over 70 years has not been determined. Clinical correlation is essential. Serum or plasma urea nitroge n measurement (mass/volume)Ordered By: Melissa Reed on 09-14-2023 Urea nitrogen [Mass/Vol] 19 mg/dL 7-18 [facility] Thin prep Papanicolaou smear with manual screeningOrdered By: Melissa Reed on 09-14-2023 Thin prep Papanicolaou smear with manual screening 3 5-15 [facility] Basophil percentageOrdered B y: Melissa Reed on 08-31-2023 Chloride [Moles/Vol] 104 mmol/L 98-107 [facility] Glucose [Mass/Vol] 169 mg/dL 74-106 [facility] Comment on above: Fasting Glucose resu lt greater than or equal to 126 mg/dL suggests DIABETES MELLITUS per A.D.A. criteria. Potassium [Moles/Vol] 3.6 mmol/L 3.5-5.1 [facility] Sodium [Moles/Vol] 140 mmol/L 136-145 [facility] - Chemistry and C hemistry - challengeOrdered By: Melissa Reed on 08-31-2023 CO2 [Moles/Vol] 30.0 mmol/L 21.0-32.0 [facility] Urea nitrogen/Creatinine [Mass ratio] 20.3 mg/mg 10-20 [facility] No Panel InformationOrdered By: Melissa Reed on 08-31-2023 Estimated GFR (MDRD) Amer 57 mL/min >60 [facility] Comment on above: GFR Calc Estimated GFR (MDRD) Non-Af Amer 47 mL/min >60 [facility] Comment on above: Non- GFR Calc Serum or plasma calcium danae urement (mass/volume)Ordered By: Melissa Reed on 08-31-2023 Calcium [Mass/Vol] 8.9 mg/dL 8.5-10.1 [facility] Serum or plasma creatinine m easurement (mass/volume)Ordered By: Melissa Reed on 08-31-2023 Creatinine [Mass/Vol] 1.18 mg/dL 0.55-1.02 [facility] Comment on above: The validity of the calculated GFR & GFRAA in patients over 70 years has not been determined. Clinical correlation is essential. Serum or plasma urea nitroge n measurement (mass/volume)Ordered By: Melissa Reed on 08-31-2023 Urea nitrogen [Mass/Vol] 24 mg/dL 7-18 [facility] Thin prep Papanicolaou smear with manual screeningOrdered By: Melissa Reed on 08-31-2023 Thin prep Papanicolaou smear with manual screening 6 5-15 [facility] Basophil percentageOrdered B y: Melissa Reed on 08-17-2023 Chloride [Moles/Vol] 105 mmol/L 98-107 [facility] Glucose [Mass/Vol] 192 mg/dL 74-106 [facility] Comment on above: Fasting Glucose resu lt greater than or equal to 126 mg/dL suggests DIABETES MELLITUS per A.D.A. criteria. Potassium [Moles/Vol] 3.8 mmol/L 3.5-5.1 [facility] Sodium [Moles/Vol] 138 mmol/L 136-145 [facility] - Chemistry and C hemistry - challengeOrdered By: Melissa Reed on 08-17-2023 CO2 [Moles/Vol] 29.0 mmol/L 21.0-32.0 [facility] Urea nitrogen/Creatinine [Mass ratio] 22.8 mg/mg 10-20 [facility] No Panel InformationOrdered By: Melissa Reed on 08-17-2023 Estimated GFR (MDRD) Amer 59 mL/min >60 [facility] Comment on above: GFR Calc Estimated GFR (MDRD) Non-Af Amer 49 mL/min >60 [facility] Comment on above: Non- GFR Calc Serum or plasma calcium danae urement (mass/volume)Ordered By: Melissa Reed on 08-17-2023 Calcium [Mass/Vol] 8.8 mg/dL 8.5-10.1 [facility] Serum or plasma creatinine m easurement (mass/volume)Ordered By: Melissa Reed on 08-17-2023 Creatinine [Mass/Vol] 1.14 mg/dL 0.55-1.02 [facility] Comment on above: The validity of the calculated GFR & GFRAA in patients over 70 years has not been determined. Clinical correlation is essential. Serum or plasma urea nitroge n measurement (mass/volume)Ordered By: Melissa Reed on 08-17-2023 Urea nitrogen [Mass/Vol] 26 mg/dL 7-18 [facility] Thin prep Papanicolaou smear with manual screeningOrdered By: Melissa Reed on 08-17-2023 Thin prep Papanicolaou smear with manual screening 4 5-15 [facility] Basophil percentageOrdered B y: Melissa Reed on 08-14-2023 Chloride [Moles/Vol] 104 mmol/L 98-107 [facility] Glucose [Mass/Vol] 146 mg/dL 74-106 [facility] Comment on above: Fasting Glucose resu lt greater than or equal to 126 mg/dL suggests DIABETES MELLITUS per A.D.A. criteria. Potassium [Moles/Vol] 3.4 mmol/L 3.5-5.1 [facility] Sodium [Moles/Vol] 138 mmol/L 136-145 [facility] - Chemistry and C hemistry - challengeOrdered By: Melissa Reed on 08-14-2023 CO2 [Moles/Vol] 29.0 mmol/L 21.0-32.0 [facility] Urea nitrogen/Creatinine [Mass ratio] 24.8 mg/mg 10-20 [facility] No Panel InformationOrdered By: Melissa Reed on 08-14-2023 Estimated GFR (MDRD) Amer 60 mL/min >60 [facility] Comment on above: GFR Calc Estimated GFR (MDRD) Non-Af Amer 49 mL/min >60 [facility] Comment on above: Non- GFR Calc Serum or plasma calcium danae urement (mass/volume)Ordered By: Melissa Reed on 08-14-2023 Calcium [Mass/Vol] 9.1 mg/dL 8.5-10.1 [facility] Serum or plasma creatinine m easurement (mass/volume)Ordered By: Melissa Reed on 08-14-2023 Creatinine [Mass/Vol] 1.13 mg/dL 0.55-1.02 [facility] Comment on above: The validity of the calculated GFR & GFRAA in patients over 70 years has not been determined. Clinical correlation is essential. Serum or plasma urea nitroge n measurement (mass/volume)Ordered By: Melissa Reed on 08-14-2023 Urea nitrogen [Mass/Vol] 28 mg/dL 7-18 [facility] Thin prep Papanicolaou smear with manual screeningOrdered By: Melissa Reed on 08-14-2023 Thin prep Papanicolaou smear with manual screening 5 5-15 [facility] Basophil percentageOrdered B y: Melissa Reed on 07-31-2023 Chloride [Moles/Vol] 107 mmol/L 98-107 [facility] Glucose [Mass/Vol] 149 mg/dL 74-106 [facility] Comment on above: Fasting Glucose resu lt greater than or equal to 126 mg/dL suggests DIABETES MELLITUS per A.D.A. criteria. Potassium [Moles/Vol] 3.4 mmol/L 3.5-5.1 [facility] Sodium [Moles/Vol] 142 mmol/L 136-145 [facility] - Chemistry and C hemistry - challengeOrdered By: Melissa Reed on 07-31-2023 CO2 [Moles/Vol] 30.0 mmol/L 21.0-32.0 [facility] Urea nitrogen/Creatinine [Mass ratio] 21.7 mg/mg 10-20 [facility] No Panel InformationOrdered By: Melissa Reed on 07-31-2023 Estimated GFR (MDRD) Amer 64 mL/min >60 [facility] Comment on above: GFR Calc Estimated GFR (MDRD) Non-Af Amer 53 mL/min >60 [facility] Comment on above: Non- GFR Calc Serum or plasma calcium danae urement (mass/volume)Ordered By: Melissa Reed on 07-31-2023 Calcium [Mass/Vol] 8.7 mg/dL 8.5-10.1 [facility] Serum or plasma creatinine m easurement (mass/volume)Ordered By: Melissa Reed on 07-31-2023 Creatinine [Mass/Vol] 1.06 mg/dL 0.55-1.02 [facility] Comment on above: The validity of the calculated GFR & GFRAA in patients over 70 years has not been determined. Clinical correlation is essential. Serum or plasma urea nitroge n measurement (mass/volume)Ordered By: Melissa Reed on 07-31-2023 Urea nitrogen [Mass/Vol] 23 mg/dL 7-18 [facility] Thin prep Papanicolaou smear with manual screeningOrdered By: Melissa Reed on 07-31-2023 Thin prep Papanicolaou smear with manual screening 5 5-15 [facility] Basophil percentageOrdered B y: Melissa Reed on 07-17-2023 Chloride [Moles/Vol] 106 mmol/L 98-107 [facility] Glucose [Mass/Vol] 141 mg/dL 74-106 [facility] Comment on above: Fasting Glucose resu lt greater than or equal to 126 mg/dL suggests DIABETES MELLITUS per A.D.A. criteria. Potassium [Moles/Vol] 4.0 mmol/L 3.5-5.1 [facility] Comment on above: Moderate Hemolysis, Result may be falsely increased. Sodium [Moles/Vol] 137 mmol/L 136-145 [facility] - Chemistry and C hemistry - challengeOrdered By: Melissa Reed on 07-17-2023 CO2 [Moles/Vol] 29.0 mmol/L 21.0-32.0 [facility] Urea nitrogen/Creatinine [Mass ratio] 22.6 mg/mg 10-20 [facility] No Panel InformationOrdered By: Melissa Reed on 07-17-2023 Estimated GFR (MDRD) Amer 58 mL/min >60 [facility] Comment on above: GFR Calc Estimated GFR (MDRD) Non-Af Amer 48 mL/min >60 [facility] Comment on above: Non- GFR Calc Serum or plasma calcium danae urement (mass/volume)Ordered By: Melissa Reed on 07-17-2023 Calcium [Mass/Vol] 9.3 mg/dL 8.5-10.1 [facility] Serum or plasma creatinine m easurement (mass/volume)Ordered By: Melissa Reed on 07-17-2023 Creatinine [Mass/Vol] 1.15 mg/dL 0.55-1.02 [facility] Comment on above: The validity of the calculated GFR & GFRAA in patients over 70 years has not been determined. Clinical correlation is essential. Serum or plasma urea nitroge n measurement (mass/volume)Ordered By: Melissa Reed on 07-17-2023 Urea nitrogen [Mass/Vol] 26 mg/dL 7-18 [facility] Thin prep Papanicolaou smear with manual screeningOrdered By: Melissa Reed on 07-17-2023 Thin prep Papanicolaou smear with manual screening 2 5-15 [facility] Basophil percentageOrdered B y: Melissa Reed on 07-03-2023 Chloride [Moles/Vol] 106 mmol/L 98-107 [facility] Glucose [Mass/Vol] 134 mg/dL 74-106 [facility] Comment on above: Fasting Glucose resu lt greater than or equal to 126 mg/dL suggests DIABETES MELLITUS per A.D.A. criteria. Potassium [Moles/Vol] 4.0 mmol/L 3.5-5.1 [facility] Sodium [Moles/Vol] 140 mmol/L 136-145 [facility] - Chemistry and C hemistry - challengeOrdered By: Melissa Reed on 07-03-2023 CO2 [Moles/Vol] 28.0 mmol/L 21.0-32.0 [facility] Urea nitrogen/Creatinine [Mass ratio] 20.5 mg/mg 10-20 [facility] No Panel InformationOrdered By: Melissa Reed on 07-03-2023 Estimated GFR (MDRD) Amer 71 mL/min >60 [facility] Comment on above: GFR Calc Estimated GFR (MDRD) Non-Af Amer 58 mL/min >60 [facility] Comment on above: Non- GFR Calc Serum or plasma calcium danae urement (mass/volume)Ordered By: Melissa Reed on 07-03-2023 Calcium [Mass/Vol] 8.6 mg/dL 8.5-10.1 [facility] Serum or plasma creatinine m easurement (mass/volume)Ordered By: Melissa Reed on 07-03-2023 Creatinine [Mass/Vol] 0.98 mg/dL 0.55-1.02 [facility] Comment on above: The validity of the calculated GFR & GFRAA in patients over 70 years has not been determined. Clinical correlation is essential. Serum or plasma urea nitroge n measurement (mass/volume)Ordered By: Melissa Rede on 07-03-2023 Urea nitrogen [Mass/Vol] 20 mg/dL 7-18 [facility] Thin prep Papanicolaou smear with manual screeningOrdered By: Melissa Reed on 07-03-2023 Thin prep Papanicolaou smear with manual screening 6 5-15 [facility] Culture, urineOrdered By: Sd Reed on 06-23-2023 Bacteria identified Cx Nom (U) ESBL Escherichia coli [facility] Progress Noteon 06-23-2023 Progress Note EMR reviewed. The patient was at [facility] for several weeks after a hospitalization. CM called and spoke with a staff member today and the patient was discharged to the [facility] living facility. PMH: RLS, HTN, GI-BLEED, CKD3, DM2, HYPOTHYROID, ANXIETY, DEPRESSION, HYPOKALEMIA, HYPERLIPIDEMIA HTN MEDS: AMLODIPINE 10MG DAILY SHE STATED THE NURSE HAS BEEN CHECKING HER BP'S 3 TIMES DAILY DM MEDS: LANTUS INSULIN 19 UNITS DAILY HUMALOG INSULIN 10 UNITS 3 TIMES DAILY WITH MEALS [id number] ON 03/01/23 THE PATIENT STATED SHE IS [...] IS NOW SEEING THE DOCTOR AT THE [facility]. SDOH COMPLETED. CM WILL DISCHARGE THE PATIENT FROM THE [facility] ASSESSMENT ANALYST MGMT. PROGRAM DUE TO PCP CHANGING. Normal [facility] Absolute lymphocyte countOrd ered By: Melissa Reed on 06-20-2023 Lymphocytes Auto (Unsp spec) [#/Vol] 1.72 10*3/uL 0.83-4.51 [facility] Basophil percentageOrdered B y: Melissa Reed on 06-20-2023 Basophils/100 WBC (Bld) 1.0 % 0-1 [facility] Chloride [Moles/Vol] 108 mmol/L 98-107 [facility] Eosinophils/100 WBC (Bld) 7.8 % 0-5 [facility] Glucose [Mass/Vol] 155 mg/dL 74-106 [facility] Comment on above: Fasting Glucose resu lt greater than or equal to 126 mg/dL suggests DIABETES MELLITUS per A.D.A. criteria. Neutrophils (Bld) [#/Vol] 5.3 10*3/uL 2.0-7.7 [facility] Neutrophils/100 WBC (Bld) 61.1 % 47-70 [facility] Potassium [Moles/Vol] 4.0 mmol/L 3.5-5.1 [facility] Sodium [Moles/Vol] 140 mmol/L 136-145 [facility] WBC (Bld) [#/Vol] 8.6 10*3/uL 4.4-11.0 [facility] Blood erythrocytes count (nu mber/volume)Ordered By: Melissa Reed on 06-20-2023 RBC (Bld) [#/Vol] 3.97 10*6/uL 4.2-5.4 [facility] Blood hemoglobin measurement (mass/volume)Ordered By: Melissa Reed on 06-20-2023 Hemoglobin (Bld) [Mass/Vol] 11.0 g/dL 12.0-15.0 [facility] Blood lymphocytes/100 leukoc ytesOrdered By: Melissa Reed on 06-20-2023 Lymphocytes/100 WBC (Bld) 20.0 % 19-41 [facility] Blood monocytes/100 leukocyt esOrdered By: Melissa Reed on 06-20-2023 Monocytes/100 WBC (Bld) 9.9 % 0-10 [facility] Blood platelet mean volumeOr dered By: Melissa Reed on 06-20-2023 Platelet mean volume (Bld) [Entitic vol] 9.9 fL 6.2-12.0 [facility] Determination of erythrocyte mean corpuscular volume (MCV)Ordered By: Melissa Reed on 06-20-2023 MCV (RBC) [Entitic vol] 93.2 fL 81-99 [facility] Hematocrit Auto (Bld) [Volum e fraction]Ordered By: Melissa Reed on 06-20-2023 Hematocrit (Bld) [Volume fraction] 37.0 % 37-47 [facility] - Chemistry and C hemistry - challengeOrdered By: Melissa Reed on 06-20-2023 CO2 [Moles/Vol] 30.0 mmol/L 21.0-32.0 [facility] Cobalamin (Vitamin B12) [Mass/Vol] 430 pg/mL 211-911 [facility] Magnesium [Mass/Vol] 2.0 mg/dL 1.6-2.6 [facility] Urea nitrogen/Creatinine [Mass ratio] 19.8 mg/mg 10-20 [facility] - Hematology and Cell countsOrdered By: Melissa Reed on 06-20-2023 Erythrocyte distribution width (RBC) [Entitic vol] 48.2 fL 35.1-43.9 [facility] Erythrocyte distribution width (RBC) [Ratio] 14.2 % 11.6-14.6 [facility] Immature granulocytes/100 WBC (Bld) 0.200 % 0.0-0.9 [facility] Comment on above: IG% - Immature Granu locytes (promyelocytes, myelocytes and metamyelocytes) > 1% indicates that a LEFT SHIFT is Present. MCH (RBC) [Entitic mass] 27.7 pg 27.0-32.0 [facility] Nucleated RBC/100 WBC (Bld) [Ratio] 0 % 0-5 [facility] MCHC Auto (RBC) [Mass/Vol]Or dered By: Melissa Reed on 06-20-2023 MCHC (RBC) [Mass/Vol] 29.7 g/dL 32-36 [facility] No Panel InformationOrdered By: Melissa Reed on 06-20-2023 Estimated GFR (MDRD) Amer 72 mL/min >60 [facility] Comment on above: GFR Calc Estimated GFR (MDRD) Non-Af Amer 60 mL/min >60 [facility] Comment on above: Non- GFR Calc Thyroid Stimulating Hormone (TSH) 1.57 uIU/mL 0.358-3.74 [facility] Vitamin D 25-Hydroxy 60.6 ng/mL [facility] Comment on above: Vitamin D 25(OH) Sta tus Range Deficiency <20 ng/mL (50nmol/L) Insufficiency 20 - 30 ng/mL (50 - 75 nmol/L) Sufficiency 30 - 100 ng/mL (75 - 250 nmol/L) Toxicity >100 ng/mL (>250 nmol/L) Platelets bldOrdered By: Lillian Reed on 06-20-2023 Platelets (Bld) [#/Vol] 317 10*3/uL 150-450 [facility] Serum or plasma calcium danae urement (mass/volume)Ordered By: Melissa Reed on 06-20-2023 Calcium [Mass/Vol] 8.8 mg/dL 8.5-10.1 [facility] Serum or plasma creatinine m easurement (mass/volume)Ordered By: Melissa Reed on 06-20-2023 Creatinine [Mass/Vol] 0.96 mg/dL 0.55-1.02 [facility] Comment on above: The validity of the calculated GFR & GFRAA in patients over 70 years has not been determined. Clinical correlation is essential. Serum or plasma urea nitroge n measurement (mass/volume)Ordered By: Melissa Reed on 06-20-2023 Urea nitrogen [Mass/Vol] 19 mg/dL 7-18 [facility] Thin prep Papanicolaou smear with manual screeningOrdered By: Melissa Reed on 06-20-2023 Thin prep Papanicolaou smear with manual screening 2 5-15 [facility] Whole blood hemoglobin A1c/t otal hemoglobin ratio (mass fraction)Ordered By: Melissa Reed on 06-20-2023 HbA1c (Bld) [Mass fraction] 6.4 % 3.8-5.6 [facility] Comment on above: Normal < 5.7 % Predi abetic 5.7 - 6.4 % Diabetic >or= 6.5 % Please note range changes. Progress Noteon 06-07-2023 Progress Note CM called and spoke with a staff member at [facility]. The patient is still at the facility. CM will follow-up with the patient once she is discharged to home. Normal [facility] Culture, urineOrdered By: Anastasia Olvera on 05-10-2023 Bacteria identified Cx Nom (U) Klebsiella pneumoniae sp pneum [facility] Bacteria identified Cx Nom (U) Klebsiella pneumoniae sp pneum [facility] No Panel InformationOrdered By: Lambert Olvera on 05-01-2023 Thyroid Stimulating Hormone (TSH) 1.91 uIU/mL 0.358-3.74 [facility] Progress Noteon 04-06-2023 Progress Note EMR [...] was discharged. RECOMMENDED NEXT STEPS: Transferred to [facility] SNF. Continue close monitoring of BG. Avoid nephrotoxins/NSAIDS/bela inh. Levothroid dose decreased. Apresoline started. PMH: RLS, HTN, GI-BLEED, CKD3, DM2, HYPOTHYROID, ANXIETY, DEPRESSION, HYPOKALEMIA, HYPERLIPIDEMIA FOLLOW-UP APPTS: 04/27/23-FAMILY MEDICINE HTN MEDS: AMLODIPINE 10MG DAILY HYDRALAZINE 25MG THREE TIMES DAILY ?CHECKING BP'S DM MEDS: LANTUS INSULIN 19 UNITS DAILY HUMALOG INSULIN 10 UNITS WITH MEALS [id number] ON 03/01/23 ?MONITORING BLOOD SUGARS CM CALLED AND SPOKE WITH THE PT'S SON-MAXIMINO. HE STATED THE PT. IS CURRENTLY ADMITTED TO [facility]. HE STATED THE PT. WILL PROBABLY BE GOING TO AN ASSISTED LIVING FACILITY WHEN SHE IS DISCHARGED DUE TO THE PT. NOT BEING ABLE TO CARE FOR HERSELF ALONE AT HOME. CM WILL FOLLOW-UP WITH THE PT. ONCE SHE IS DISCHARGED FROM SNF. Normal [facility] Basophil percentageOrdered B y: Lambert Olvera on 04-04-2023 Bilirubin [Mass/Vol] 0.30 mg/dL 0.20-1.00 [facility] Comment on above: For patients on eltr ombopag therapy, use of Dimension [place] TBIL is not recommended. Chloride [Moles/Vol] 109 mmol/L 98-107 [facility] Glucose [Mass/Vol] 112 mg/dL 74-106 [facility] Comment on above: Fasting Glucose resu lt from 100 to 125 mg/dL suggests IMPAIRED HOMEOSTASIS per A.D.A. criteria. Potassium [Moles/Vol] 4.2 mmol/L 3.5-5.1 [facility] Protein [Mass/Vol] 6.5 g/dL 6.4-8.2 [facility] Sodium [Moles/Vol] 140 mmol/L 136-145 [facility] WBC (Bld) [#/Vol] 8.5 10*3/uL 4.4-11.0 [facility] Blood erythrocytes count (nu mber/volume)Ordered By: Lambert Olvera on 04-04-2023 RBC (Bld) [#/Vol] 4.34 10*6/uL 4.2-5.4 [facility] Blood hemoglobin measurement (mass/volume)Ordered By: Lambert Olvera on 04-04-2023 Hemoglobin (Bld) [Mass/Vol] 11.9 g/dL 12.0-15.0 [facility] Blood platelet mean volumeOr dered By: Lambert Olvera on 04-04-2023 Platelet mean volume (Bld) [Entitic vol] 10.4 fL 6.2-12.0 [facility] Determination of erythrocyte mean corpuscular volume (MCV)Ordered By: Lambert Olvera on 04-04-2023 MCV (RBC) [Entitic vol] 91.9 fL 81-99 [facility] Hematocrit Auto (Bld) [Volum e fraction]Ordered By: Lambert Olvera on 04-04-2023 Hematocrit (Bld) [Volume fraction] 39.9 % 37-47 [facility] Laboratory - Chemistry and C hemistry - challengeOrdered By: Lambert Olvera on 04-04-2023 ALP [Catalytic activity/Vol] 96 U/L 45-117 [facility] ALT [Catalytic activity/Vol] 28 U/L 13-56 [facility] CO2 [Moles/Vol] 27.0 mmol/L 21.0-32.0 [facility] Globulin (S) [Mass/Vol] 3.7 g/dL 2.2-4.2 [facility] Urea nitrogen/Creatinine [Mass ratio] 21.8 mg/mg 10-20 [facility] - Hematology and Cell countsOrdered By: Lambert Olvera on 04-04-2023 Erythrocyte distribution width (RBC) [Entitic vol] 47.0 fL 35.1-43.9 [facility] Erythrocyte distribution width (RBC) [Ratio] 13.9 % 11.6-14.6 [facility] MCH (RBC) [Entitic mass] 27.4 pg 27.0-32.0 [facility] MCHC Auto (RBC) [Mass/Vol]Or dered By: Lambert Olvera on 04-04-2023 MCHC (RBC) [Mass/Vol] 29.8 g/dL 32-36 [facility] No Panel InformationOrdered By: Lambert Olvera on 04-04-2023 Estimated GFR (MDRD) Amer 76 mL/min >60 [facility] Comment on above: GFR Calc Estimated GFR (MDRD) Non-Af Amer 63 mL/min >60 [facility] Comment on above: Non- GFR Calc Platelets bldOrdered By: Lisa Olvera on 04-04-2023 Platelets (Bld) [#/Vol] 315 10*3/uL 150-450 [facility] Serum or plasma albumin danae urement (mass/volume)Ordered By: Lambert Olvera on 04-04-2023 Albumin [Mass/Vol] 2.8 g/dL 3.2-5.0 [facility] Serum or plasma albumin/glob ulin mass ratioOrdered By: Lambert Olvera on 04-04-2023 Albumin/Globulin [Mass ratio] 0.8 {ratio} 0.9-2.4 [facility] Serum or plasma calcium danae urement (mass/volume)Ordered By: Lambert Olvera on 04-04-2023 Calcium [Mass/Vol] 8.6 mg/dL 8.5-10.1 [facility] Serum or plasma creatinine m easurement (mass/volume)Ordered By: Lambert Olvera on 04-04-2023 Creatinine [Mass/Vol] 0.92 mg/dL 0.55-1.02 [facility] Comment on above: The validity of the calculated GFR & GFRAA in patients over 70 years has not been determined. Clinical correlation is essential. Serum or plasma urea nitroge n measurement (mass/volume)Ordered By: Lambert Olvera on 04-04-2023 Urea nitrogen [Mass/Vol] 20 mg/dL 7-18 [facility] Thin prep Papanicolaou smear with manual screeningOrdered By: Lambert Olvera on 04-04-2023 Thin prep Papanicolaou smear with manual screening 20 U/L 15-37 [facility] Thin prep Papanicolaou smear with manual screening 4 5-15 [facility] Progress Noteon 03-31-2023 Progress Note THE PT. WAS IDENTIFI ED BY [facility] RN FROM THE [facility] DAILY CENSUS REPORT. CM WILL CONTINUE TO FOLLOW-UP WITH THE PT. FOR ANY ONGOING CM NEEDS. Normal [facility] Basophil percentageOrdered B y: Lambert Olvera on 03-20-2023 Chloride [Moles/Vol] 105 mmol/L 98-107 [facility] Glucose [Mass/Vol] 103 mg/dL 74-106 [facility] Comment on above: Fasting Glucose resu lt from 100 to 125 mg/dL suggests IMPAIRED HOMEOSTASIS per A.D.A. criteria. Potassium [Moles/Vol] 3.7 mmol/L 3.5-5.1 [facility] Sodium [Moles/Vol] 138 mmol/L 136-145 [facility] WBC (Bld) [#/Vol] 8.0 10*3/uL 4.4-11.0 [facility] Blood erythrocytes count (nu mber/volume)Ordered By: Lambert Olvera on 03-20-2023 RBC (Bld) [#/Vol] 3.75 10*6/uL 4.2-5.4 [facility] Blood hemoglobin measurement (mass/volume)Ordered By: Lambert Ovlera on 03-20-2023 Hemoglobin (Bld) [Mass/Vol] 10.3 g/dL 12.0-15.0 [facility] Blood platelet mean volumeOr dered By: Lambert Olvera on 03-20-2023 Platelet mean volume (Bld) [Entitic vol] 10.5 fL 6.2-12.0 [facility] Determination of erythrocyte mean corpuscular volume (MCV)Ordered By: Lambert Olvera on 03-20-2023 MCV (RBC) [Entitic vol] 91.7 fL 81-99 [facility] Hematocrit Auto (Bld) [Volum e fraction]Ordered By: Lambert Olvera on 03-20-2023 Hematocrit (Bld) [Volume fraction] 34.4 % 37-47 [facility] Laboratory - Chemistry and C hemistry - challengeOrdered By: Lambert Olvera on 03-20-2023 CO2 [Moles/Vol] 30.0 mmol/L 21.0-32.0 [facility] Urea nitrogen/Creatinine [Mass ratio] 24.2 mg/mg 10-20 [facility] Laboratory - Hematology and Cell countsOrdered By: Lambert Olvera on 03-20-2023 Erythrocyte distribution width (RBC) [Entitic vol] 45.7 fL 35.1-43.9 [facility] Erythrocyte distribution width (RBC) [Ratio] 13.4 % 11.6-14.6 [facility] MCH (RBC) [Entitic mass] 27.5 pg 27.0-32.0 [facility] MCHC Auto (RBC) [Mass/Vol]Or dered By: Lambert Olvera on 03-20-2023 MCHC (RBC) [Mass/Vol] 29.9 g/dL 32-36 [facility] No Panel InformationOrdered By: Lambert Olvera on 03-20-2023 Estimated GFR (MDRD) Amer 70 mL/min >60 [facility] Comment on above: GFR Calc Estimated GFR (MDRD) Non-Af Amer 57 mL/min >60 [facility] Comment on above: Non- GFR Calc Thyroid Stimulating Hormone (TSH) 0.04 uIU/mL 0.358-3.74 [facility] Platelets bldOrdered By: Lisa Olvera on 03-20-2023 Platelets (Bld) [#/Vol] 333 10*3/uL 150-450 [facility] Serum or plasma calcium danae urement (mass/volume)Ordered By: Lambert Olvera on 03-20-2023 Calcium [Mass/Vol] 8.4 mg/dL 8.5-10.1 [facility] Serum or plasma creatinine m easurement (mass/volume)Ordered By: Lambert Olvera on 03-20-2023 Creatinine [Mass/Vol] 0.99 mg/dL 0.55-1.02 [facility] Comment on above: The validity of the calculated GFR & GFRAA in patients over 70 years has not been determined. Clinical correlation is essential. Serum or plasma urea nitroge n measurement (mass/volume)Ordered By: Lambert Olvera on 03-20-2023 Urea nitrogen [Mass/Vol] 24 mg/dL 7-18 [facility] Thin prep Papanicolaou smear with manual screeningOrdered By: Lambert Olvera on 03-20-2023 Thin prep Papanicolaou smear with manual screening 3 5-15 [facility] Absolute lymphocyte countOrd ered By: Baljit Jaffe on 03-18-2023 Lymphocytes Auto (Unsp spec) [#/Vol] 1.42 10*3/uL 0.83-4.51 [facility] Basophil percentageOrdered B y: Baljit Jaffe on 03-18-2023 Basophils/100 WBC (Bld) 0.6 % 0-1 [facility] Chloride [Moles/Vol] 106 mmol/L 98-107 [facility] Eosinophils/100 WBC (Bld) 5.2 % 0-5 [facility] Glucose [Mass/Vol] 111 mg/dL 74-106 [facility] Comment on above: Fasting Glucose resu lt from 100 to 125 mg/dL suggests IMPAIRED HOMEOSTASIS per A.D.A. criteria. Neutrophils (Bld) [#/Vol] 5.0 10*3/uL 2.0-7.7 [facility] Neutrophils/100 WBC (Bld) 65.0 % 47-70 [facility] Potassium [Moles/Vol] 3.7 mmol/L 3.5-5.1 [facility] Sodium [Moles/Vol] 138 mmol/L 136-145 [facility] WBC (Bld) [#/Vol] 7.8 10*3/uL 4.4-11.0 [facility] Blood erythrocytes count (nu mber/volume)Ordered By: Baljit Jaffe on 03-18-2023 RBC (Bld) [#/Vol] 3.84 10*6/uL 4.2-5.4 [facility] Blood hemoglobin measurement (mass/volume)Ordered By: Baljit Jaffe on 03-18-2023 Hemoglobin (Bld) [Mass/Vol] 10.8 g/dL 12.0-15.0 [facility] Blood lymphocytes/100 leukoc ytesOrdered By: Baljit Jaffe on 03-18-2023 Lymphocytes/100 WBC (Bld) 18.3 % 19-41 [facility] Blood monocytes/100 leukocyt esOrdered By: Baljit Jaffe on 03-18-2023 Monocytes/100 WBC (Bld) 10.6 % 0-10 [facility] Blood platelet mean volumeOr dered By: Baljit Jaffe on 03-18-2023 Platelet mean volume (Bld) [Entitic vol] 9.9 fL 6.2-12.0 [facility] Determination of erythrocyte mean corpuscular volume (MCV)Ordered By: Baljit Jaffe on 03-18-2023 MCV (RBC) [Entitic vol] 90.6 fL 81-99 [facility] Glucose Glucometer (BldC) [M ass/Vol]Ordered By: Baljit Jaffe on 03-18-2023 Glucose [Mass/Vol] 111 mg/dL 74-106 [facility] Comment on above: MANAGEMENT OF PATIEN T CARE PER NURSING PROTOCOL Hematocrit Auto (Bld) [Volum e fraction]Ordered By: Baljit Jaffe on 03-18-2023 Hematocrit (Bld) [Volume fraction] 34.8 % 37-47 [facility] - Chemistry and C hemistry - challengeOrdered By: Baljit Jaffe on 03-18-2023 CO2 [Moles/Vol] 27.0 mmol/L 21.0-32.0 [facility] Urea nitrogen/Creatinine [Mass ratio] 30.8 mg/mg 10-20 [facility] - Hematology and Cell countsOrdered By: Baljit Jaffe on 03-18-2023 Erythrocyte distribution width (RBC) [Entitic vol] 44.9 fL 35.1-43.9 [facility] Erythrocyte distribution width (RBC) [Ratio] 13.4 % 11.6-14.6 [facility] Immature granulocytes/100 WBC (Bld) 0.300 % 0.0-0.9 [facility] Comment on above: IG% - Immature Granu locytes (promyelocytes, myelocytes and metamyelocytes) > 1% indicates that a LEFT SHIFT is Present. MCH (RBC) [Entitic mass] 28.1 pg 27.0-32.0 [facility] Nucleated RBC/100 WBC (Bld) [Ratio] 0 % 0-5 [facility] MCHC Auto (RBC) [Mass/Vol]Or dered By: Baljit Jaffe on 03-18-2023 MCHC (RBC) [Mass/Vol] 31.0 g/dL 32-36 [facility] No Panel InformationOrdered By: Baljit Jaffe on 03-18-2023 Estimated Creatinine Clearance Calc 41.46 ml/min [facility] Estimated GFR (MDRD) Amer 64 mL/min >60 [facility] Comment on above: GFR Calc Estimated GFR (MDRD) Non-Af Amer 53 mL/min >60 [facility] Comment on above: Non- GFR Calc Platelets bldOrdered By: Baljit Jaffe on 03-18-2023 Platelets (Bld) [#/Vol] 333 10*3/uL 150-450 [facility] Serum or plasma calcium danae urement (mass/volume)Ordered By: Baljit Jaffe on 03-18-2023 Calcium [Mass/Vol] 8.4 mg/dL 8.5-10.1 [facility] Serum or plasma creatinine m easurement (mass/volume)Ordered By: Baljit Jaffe on 03-18-2023 Creatinine [Mass/Vol] 1.07 mg/dL 0.55-1.02 [facility] Comment on above: The validity of the calculated GFR & GFRAA in patients over 70 years has not been determined. Clinical correlation is essential. Serum or plasma urea nitroge n measurement (mass/volume)Ordered By: Baljit Jaffe on 03-18-2023 Urea nitrogen [Mass/Vol] 33 mg/dL 7-18 [facility] Thin prep Papanicolaou smear with manual screeningOrdered By: Baljit Jaffe on 03-18-2023 Thin prep Papanicolaou smear with manual screening 5 5-15 [facility] COVID-19 virus antigen assay Ordered By: Baljit Jaffe on 03-17-2023 SARS-CoV-2 (COVID-19) Ag IA.rapid Ql (Resp) [facility] SARS-CoV-2 (COVID-19) Ag IA.rapid Ql (Resp) [facility] Gram stain for investigation of transfusion reactionOrdered By: Baljit Jaffe on 03-17-2023 Microscopic observation Gram stain Nom (Unsp spec) [facility] Microscopic observation Gram stain Nom (Unsp spec) [facility] Routine wound cultureOrdered By: Baljit Jaffe on 03-17-2023 Bacteria identified Cx Nom (Wound) No growth aerobically. [facility] Bacteria identified Cx Nom (Wound) No growth aerobically. [facility] 36on 03-15-2023 36 Sent via rightfax. Normal [facility] 36 Name of caller: Ricco noel [facility] Contact phone number: [phone] Relationship to Patient: [facility] Provider: Dr Lopez Practice: [facility] location Chief Complaint/Reason for Call: 03/15/23 Margaret calling to ask the office /provider about her Immunization Records she stated pt received Pneumococcal 23 on 04/10/21 but she is asking if anymore was given to pt if so, she will need those records faxed over to [phone] pls advise Best time of day caller can be reached: AM Patient advised that office/PCP has 24-48 business hours to return their call: Yes Normal [facility] CARECOORDon 03-06-2023 [facility] Patient Choice Patient Name: RADHA SANDOVAL Date of : 1945 [facility] Bacteria identified Cx Nom ( U)Ordered By: Kalpesh Dillon on 03-03-2023 Interpretation and review of laboratory results Abnormal [facility]2023 [facility] Discharge med list transmitted to [facility] via Careport per TCC request. [facility] Spoke with pt at bedside regarding POA, pt states she is not interested at this time to complete it and would consider completing at [place] - did call Rafaela at [facility] to update her as well. 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 Will notify RN and TCC of this in rounds. Notified patient's son via phone of transportation time. SW remains available if any other needs concerns arise. [facility] You are not granted access to view this sensitive note. Normal [facility] [place]OORD Insurance auth obtai shaina for [facility] nursing [facility], updated Dr Finch notified via Sarbari. Normal [facility] CBC W Auto Differential pane l (Bld)on 03-03-2023 Basophils (Bld) [#/Vol] 0.1 10*3/uL 0.0 - 0.2 10*3/uL [facility] Basophils/100 WBC (Bld) 0.6 % 0.0 - 2.0 % [facility] Eosinophils (Bld) [#/Vol] 0.4 10*3/uL 0.0 - 0.5 10*3/uL [facility] Eosinophils/100 WBC (Bld) 4.4 % 1.0 - 6.0 % [facility] Erythrocyte distribution width (RBC) [Ratio] 13.4 % 11.5 - 14.5 % [facility] Hematocrit (Bld) [Volume fraction] 35.5 % 35.0 - 47.0 % [facility] Hemoglobin (Bld) [Mass/Vol] 11.6 g/dL Low 11.7 - 16.0 g/dL [facility] Interpretation and review of laboratory results Abnormal [facility] Lymphocytes (Bld) [#/Vol] 2.0 10*3/uL 1.0 - 4.3 10*3/uL [facility] Lymphocytes/100 WBC (Bld) 22.6 % 20.0 - 40.0 % [facility] MCH (RBC) [Entitic mass] 27.7 pg 26.0 - 34.0 pg [facility] MCHC (RBC) [Mass/Vol] 32.7 % 32.0 - 36.0 % [facility] MCV (RBC) [Entitic vol] 84.8 fL 80.0 - 98.0 fL [facility] Monocytes (Bld) [#/Vol] 1.0 10*3/uL High 0.0 - 0.8 10*3/uL [facility] Monocytes/100 WBC (Bld) 11.6 % High 2.0 - 10.0 % [facility] Neutrophils (Bld) [#/Vol] 5.4 10*3/uL 1.8 - 7.0 10*3/uL [facility] Neutrophils/100 WBC (Bld) 60.8 % 40.0 - 80.0 % [facility] Nucleated RBC/100 WBC (Bld) [Ratio] 0.0 % [facility] Platelet mean volume (Bld) [Entitic vol] 7.9 fL 7.4 - 12.4 fL [facility] Platelets (Bld) [#/Vol] 257 10*3/uL 140 - 440 10*3/uL [facility] RBC (Bld) [#/Vol] 4.19 10*6/uL 3.8 - 5.20 10*6/uL [facility] WBC (Bld) [#/Vol] 9.0 10*3/uL 3.6 - 10.7 10*3/uL [facility] CBC WITH AUTO DIFFERENTIALon 03-03-2023 Basophils (Bld) [#/Vol] 0.1 10*3/uL Normal 0.0-0.2 [facility] Comment on above: Performed By: #### L [id number] ####Performance Manager: MARTIN REYES ([phone])[facility] (SBHLAB)[address] [place] [address] Basophils/100 WBC (Bld) 0.6 % Normal 0.0-2.0 [facility] Comment on above: Performed By: #### L [id number] ####Performance Manager: MARTIN REYES ([id number])[facility] (SB[facility])[address] [place] [address] Eosinophils (Bld) [#/Vol] 0.4 10*3/uL Normal 0.0-0.5 [facility] Comment on above: Performed By: #### L [id number] ####Performance Manager: MARTIN REYES ([phone])[facility] [place] (SBHLAB)[address] [place] [address] [place] Eosinophils/100 WBC (Bld) 4.4 % Normal 1.0-6.0 [facility] Comment on above: Performed By: #### L [id number] ####Performance Manager: MARTIN REYES ([phone])[facility] [place] (SBHLAB)[address] [place] [address] Erythrocyte distribution width (RBC) [Ratio] 13.4 % Normal 11.5-14.5 [facility] Comment on above: Performed By: #### L [id number] ####Performance Manager: MARTIN REYES ([id number])[facility] [place] (SBHLAB)[address] ERYTHROCYTE MEAN CORPUSCULAR HEMOGLOBIN CONCENTRATION (G/DL) BY AUTOMATED 32.7 % Normal 32.0-36.0 [facility] Comment on above: Performed By: #### L [id number] ####Performance Manager: MARTIN REYES ([phone])[facility] [place] (SBHLAB)[address] [place] [address] Hematocrit (Bld) [Volume fraction] 35.5 % Normal 35.0-47.0 [facility] Comment on above: Performed By: #### L [id number] ####Performance Manager: MARTIN REYES ([phone])[facility] [place] (SBHLAB)[address] [place] [address] Hemoglobin (Bld) [Mass/Vol] 11.6 g/dL Low 11.7-16.0 [facility] Comment on above: Performed By: #### L [id number] ####Performance Manager: MARTIN REYES ([phone])[facility] ([facility])[address] [place] [address] Lymphocytes (Bld) [#/Vol] 2.0 10*3/uL Normal 1.0-4.3 [facility] Comment on above: Performed By: #### L [id number] ####Performance Manager: MARTIN REYES ([phone])[facility] [place] (SBHLAB)[address] Lymphocytes/100 WBC (Bld) 22.6 % Normal 20.0-40.0 [facility] Comment on above: Performed By: #### L [id number] ####Performance Manager: MARTIN REYES ([id number])[facility] [place] (SBHLAB)[address] MCH (RBC) [Entitic mass] 27.7 pg Normal 26.0-34.0 [facility] Comment on above: Performed By: #### L [id number] ####Performance Manager: MARTIN REYES ([id number])[facility] [place] (SBHLAB)[address] MCV (RBC) [Entitic vol] 84.8 fL Normal 80.0-98.0 [facility] Comment on above: Performed By: #### L [id number] ####Performance Manager: MARTIN REYES ([phone])[facility] [place] (SBHLAB)[address] Monocytes (Bld) [#/Vol] 1.0 10*3/uL High 0.0-0.8 [facility] Comment on above: Performed By: #### L [id number] ####Performance Manager: MARTIN REYES ([phone])[facility] [place] (SBHLAB)[address] Monocytes/100 WBC (Bld) 11.6 % High 2.0-10.0 [facility] Comment on above: Performed By: #### L [id number] ####Performance Manager: MARTIN REYES ([id number])[facility] [place] (SBHLAB)[address] [place] [address] [place] Neutrophils (Bld) [#/Vol] 5.4 10*3/uL Normal 1.8-7.0 [facility] Comment on above: Performed By: #### L [id number] ####Performance Manager: MARTIN REYES ([phone])[facility] [place] (SBHLAB)[address] Neutrophils/100 WBC (Bld) 60.8 % Normal 40.0-80.0 [facility] Comment on above: Performed By: #### L [id number] ####Performance Manager: MARTIN [phone])[facility] [place] (SB[facility])[address] NRBC (PER 100 WBCS) BY AUTOMATED COUNT 0.0 /100 WBCs Normal 0.0-2.0 [facility] Comment on above: Performed By: #### L [id number] ####Performance Manager: MARTIN REYES ([phone])[facility] [place] (SB[facility])[address] Platelet mean volume (Bld) [Entitic vol] 7.9 fL Normal 7.4-12.4 [facility] Comment on above: Performed By: #### L [id number] ####Performance Manager: MARTIN REYES ([phone])[facility] [place] (SBHLAB)[address] PLATELETS (10*3/UL) IN BLOOD AUTOMATED COUNT 257 10*3/uL Normal 140-[address] [facility] Comment on above: Performed By: #### L [id number] ####Performance Manager: MARTIN REYES ([phone])[facility] (SB[facility])[address] RBC (Bld) [#/Vol] 4.19 10*6/uL Normal 3.8-5.20 [facility] Comment on above: Performed By: #### L [id number] ####Performance Manager: MARTIN REYES ([phone])[facility] [place] (SB[facility])[address] WBC (Bld) [#/Vol] 9.0 10*3/uL Normal 3.6-10.7 [facility] Comment on above: Performed By: #### L [id number] ####Performance Manager: MARTIN REYES ([phone])[facility] [place] (SB[facility]AB)[address] COMPREHENSIVE METABOLIC PANE Real 03-03-2023 Albumin [Mass/Vol] 3.2 g/dL Low 3.5-5.0 [facility] Comment on above: Performed By: #### L [id number] ####Performance Manager: MARTIN REYES ([id number])[facility] [place] (SBHLAB)[address] ALP [Catalytic activity/Vol] 94 U/L Normal 38-126 [facility] Comment on above: Performed By: #### L [id number] ####Performance Manager: MARTIN REYES ([phone])[facility] [place] (SB[facility])[address] ALT [Catalytic activity/Vol] 12 U/L Normal 0-34 [facility] Comment on above: Performed By: #### L [id number] ####Performance Manager: MARTIN REYES ([id number])[facility] [place] (SB[facility])[address] Anion gap [Moles/Vol] 2 mmol/L Low 3-13 [facility] Comment on above: Performed By: #### L [id number] ####Performance Manager: MARTIN REYES ([phone])[facility] (SB[facility])[address] AST [Catalytic activity/Vol] 34 U/L Normal 15-46 [facility] Comment on above: Performed By: #### L [id number] ####Performance Manager: MARTIN REYES ([id number])[facility] [place] ([facility])[address] Bilirubin [Mass/Vol] 0.3 mg/dL Normal 0.2-1.3 [facility] Comment on above: Performed By: #### L [id number] ####Performance Manager: MARTIN REYES ([id number])[facility] [place] ([facility])[address] Calcium [Mass/Vol] 8.1 mg/dL Low 8.4-10.4 [facility] Comment on above: Performed By: #### L [id number] ####Performance Manager: MARTIN REYES ([id number])[facility] (SB[facility])[address] Chloride [Moles/Vol] 102 mmol/L Normal 98-107 [facility] Comment on above: Performed By: #### L [id number] ####Performance Manager: MARTIN HUANateJOSE R ([id number])[facility] (SBHLAB)[address] CO2 [Moles/Vol] 30 mmol/L Normal 22-30 [facility] Comment on above: Performed By: #### L [id number] ####Performance Manager: MARTIN ERCI ([id number])[facility] (HLAB)[address] Creatinine [Mass/Vol] 0.82 mg/dL Normal 0.52-1.04 [facility] Comment on above: Performed By: #### L [id number] ####Performance Manager: MARTIN AMBROSEJOSE R ([id number])[facility] (HLAB)[address] GLOMERULAR FILTRATION RATE ML/MIN/1.73 SQ M.PREDICTED 72.9 mL/min/1.73m*2 Normal >60.0 [facility] Comment on above: Result Comment: Calc ulation based on the Chronic Kidney Disease Epidemiology Collaboration (CKD-EPI) equation refit without adjustment for race Performed By: #### L AB17 ####Performance Manager: MARTIN REYES ([phone])[facility] (SBHLAB)[address] Glucose [Mass/Vol] 125 mg/dL High 70-100 [facility] Comment on above: Performed By: #### L AB17 ####Performance Manager: MARTIN REYES ([phone])[facility] (HLAB)[address] Potassium [Moles/Vol] 3.7 mmol/L Normal 3.5-5.1 [facility] Comment on above: Performed By: #### L AB17 ####Performance Manager: MARTIN REYES ([phone])[facility] [place] (SBHLAB)[address] Protein [Mass/Vol] 6.2 g/dL Low 6.3-8.2 [facility] Comment on above: Performed By: #### L AB17 ####Performance Manager: MARTIN REYES ([phone])[facility] [place] (SBHLAB)[address] Sodium [Moles/Vol] 134 mmol/L Low 135-145 [facility] Comment on above: Performed By: #### L AB17 ####Performance Manager: MARTIN REYES ([phone])[facility] [place] (SBHLAB)[address] Urea nitrogen [Mass/Vol] 15 mg/dL Normal 7-17 [facility] Comment on above: Performed By: #### L AB17 ####Performance Manager: MARTIN REYES ([phone])[facility] [place] (SBHLAB)[address] Comprehensive metabolic 1998 panelon 03-03-2023 Albumin [Mass/Vol] 3.2 g/dL Low 3.5 - 5.0 g/dL [facility] ALP [Catalytic activity/Vol] 94 U/L 38 - 126 U/L [facility] ALT [Catalytic activity/Vol] 12 U/L 0 - 34 U/L [facility] Anion gap [Moles/Vol] 2 mmol/L Low 3 - 13 mmol/L [facility] AST [Catalytic activity/Vol] 34 U/L 15 - 46 U/L [facility] Bilirubin [Mass/Vol] 0.3 mg/dL 0.2 - 1 .3 mg/dL [facility] Calcium [Mass/Vol] 8.1 mg/dL Low 8.4 - 10. 4 mg/dL [facility] Chloride [Moles/Vol] 102 mmol/L 98 - 10 7 mmol/L [facility] CO2 [Moles/Vol] 30 mmol/L 22 - 30 mmol/L [facility] Creatinine [Mass/Vol] 0.82 mg/dL 0.52 - 1.04 mg/dL [facility] GFR/1.73 sq M.predicted MDRD (S/P/Bld) [Vol rate/Area] 72.9 mL/min/{1.73_m2} - PINF [facility] Comment on above: Calculation based on the Chronic Kidney Disease Epidemiology Collaboration (CKD-EPI) equation refit without adjustment for race Glucose [Mass/Vol] 125 mg/dL High 70 - 100 mg/dL [facility] Interpretation and review of laboratory results Abnormal [facility] Potassium [Moles/Vol] 3.7 mmol/L 3.5 - 5.1 mmol/L [facility] Protein [Mass/Vol] 6.2 g/dL Low 6.3 - 8.2 g/dL [facility] Sodium [Moles/Vol] 134 mmol/L Low 135 - 145 mmol/L [facility] Urea nitrogen [Mass/Vol] 15 mg/dL 7 - 17 mg/dL [facility] POCT glucose meteron 023 Glucose [Mass/Vol] 215 mg/dL High 70 - 100 mg/dL [facility] Interpretation and review of laboratory results Abnormal [facility] Performed by: [facility], [address] [place] [id number] CLIA ID: [id number] [facility] Glucose [Mass/Vol] 158 mg/dL High 70 - 100 mg/dL [facility] Interpretation and review of laboratory results Abnormal [facility] Performed by: [facility], [address] [facility] [address] CLIA ID: [id number] [facility] Progress Noteon 03-03-2023 Progress Note Discharged via ambulance to [facility] Normal [facility] Progress Note Report called to carolina garcia at [facility] at [phone] Normal [facility] Urine cultureOrdered By: Sanford Dillon on 03-03-2023 Bacteria identified Cx Nom (U) >100,000 CFU/mL Escherichia coli Abnormal [facility] 25-hydroxyvitamin D3 [Mass/V ol]on 03-02-2023 Therapy is based on measurement of Total 25-OHD with the following classification levels: Less than 20 ng/mL: Indicative of Vit D deficiency 20-30 ng/mL: Suggests Vit D insufficiency Optimal: Greater than or equal to 30 ng/mL Test performed by Digital Lumens Competitive Immunoassay, measuring Total Vitamin D, not individual fractions. [facility] CARECOORDon 03-02-2023 CARECHARLES Received a call from Raafela at [facility], they are able to accept, pt agreeable. 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 [facility] at this time Normal [facility] CBC W Auto Differential pane l (Bld)Ordered By: Wendy Bruce on 03-02-2023 Basophils (Bld) [#/Vol] 0.1 10*3/uL 0.0 - 0.2 10*3/uL [facility] Basophils/100 WBC (Bld) 0.7 % 0.0 - 2.0 % [facility] Eosinophils (Bld) [#/Vol] 0.4 10*3/uL 0.0 - 0.5 10*3/uL [facility] Eosinophils/100 WBC (Bld) 3.9 % 1.0 - 6.0 % [facility] Erythrocyte distribution width (RBC) [Ratio] 13.7 % 11.5 - 14.5 % [facility] Hematocrit (Bld) [Volume fraction] 36.1 % 35.0 - 47.0 % [facility] Hemoglobin (Bld) [Mass/Vol] 11.9 g/dL 11.7 - 16.0 g/dL [facility] Interpretation and review of laboratory results Abnormal [facility] Lymphocytes (Bld) [#/Vol] 1.9 10*3/uL 1.0 - 4.3 10*3/uL [facility] Lymphocytes/100 WBC (Bld) 20.1 % 20.0 - 40.0 % [facility] MCH (RBC) [Entitic mass] 28.5 pg 26.0 - 34.0 pg [facility] MCHC (RBC) [Mass/Vol] 32.8 % 32.0 - 36.0 % [facility] MCV (RBC) [Entitic vol] 86.8 fL 80.0 - 98.0 fL [facility] Monocytes (Bld) [#/Vol] 1.1 10*3/uL High 0.0 - 0.8 10*3/uL [facility] Monocytes/100 WBC (Bld) 11.4 % High 2.0 - 10.0 % [facility] Neutrophils (Bld) [#/Vol] 6.1 10*3/uL 1.8 - 7.0 10*3/uL [facility] Neutrophils/100 WBC (Bld) 63.9 % 40.0 - 80.0 % [facility] Nucleated RBC/100 WBC (Bld) [Ratio] 0.1 % [facility] Platelet mean volume (Bld) [Entitic vol] 8.4 fL 7.4 - 12.4 fL [facility] Platelets (Bld) [#/Vol] 252 10*3/uL 140 - 440 10*3/uL [facility] RBC (Bld) [#/Vol] 4.16 10*6/uL 3.8 - 5.20 10*6/uL [facility] WBC (Bld) [#/Vol] 9.5 10*3/uL 3.6 - 10.7 10*3/uL [facility] CBC WITH AUTO DIFFERENTIALon 03-02-2023 Basophils (Bld) [#/Vol] 0.1 10*3/uL Normal 0.0-0.2 [facility] Comment on above: Performed By: #### L [id number] ####Performance Manager: MARTIN REYES ([phone])[facility] [place] [address] Basophils/100 WBC (Bld) 0.7 % Normal 0.0-2.0 [facility] Comment on above: Performed By: #### L [id number] ####Performance Manager: MARTIN REYES ([phone])[facility] (SBHLAB)[address] Eosinophils (Bld) [#/Vol] 0.4 10*3/uL Normal 0.0-0.5 [facility] Comment on above: Performed By: #### L [id number] ####Performance Manager: MARTIN REYES ([phone])[facility] (SBHLAB)[address] [place] [address] [place] Eosinophils/100 WBC (Bld) 3.9 % Normal 1.0-6.0 [facility] Comment on above: Performed By: #### L [id number] ####Performance Manager: MARTIN HUANateJOSE R ([phone])[facility] [place] (SBHLAB)[address] Erythrocyte distribution width (RBC) [Ratio] 13.7 % Normal 11.5-14.5 [facility] Comment on above: Performed By: #### L [id number] ####Performance Manager: MARTIN HUAWILFREDO ([phone])[facility] (SBHLAB)[address] ERYTHROCYTE MEAN CORPUSCULAR HEMOGLOBIN CONCENTRATION (G/DL) BY AUTOMATED 32.8 % Normal 32.0-36.0 [facility] Comment on above: Performed By: #### L [id number] ####Performance Manager: MARTIN ERIC ([phone])[facility] (SBHLAB)[address] Hematocrit (Bld) [Volume fraction] 36.1 % Normal 35.0-47.0 [facility] Comment on above: Performed By: #### L [id number] ####Performance Manager: MARTIN AMBROSEJOSE R ([phone])[facility] (SBHLAB)[address] Hemoglobin (Bld) [Mass/Vol] 11.9 g/dL Normal 11.7-16.0 [facility] Comment on above: Performed By: #### L [id number] ####Performance Manager: MARTIN HUAWILFREDO ([phone])[facility] (SBHLAB)[address] [place] [address] [place] Lymphocytes (Bld) [#/Vol] 1.9 10*3/uL Normal 1.0-4.3 [facility] Comment on above: Performed By: #### L [id number] ####Performance Manager: MARTIN AMBROSEJOSE R ([phone])[facility] (SBHLAB)[address] [place] [address] [place] Lymphocytes/100 WBC (Bld) 20.1 % Normal 20.0-40.0 [facility] Comment on above: Performed By: #### L [id number] ####Performance Manager: MARTIN AMBROSEJOSE R ([phone])[facility] [place] (SBHLAB)[address] MCH (RBC) [Entitic mass] 28.5 pg Normal 26.0-34.0 [facility] Comment on above: Performed By: #### L [id number] ####Performance Manager: MARTIN AMBROSEJOSE R ([phone])[facility] [place] (SBHLAB)[address] MCV (RBC) [Entitic vol] 86.8 fL Normal 80.0-98.0 [facility] Comment on above: Performed By: #### L [id number] ####Performance Manager: MARTIN REYES ([phone])[facility] [place] (SBHLAB)[address] Monocytes (Bld) [#/Vol] 1.1 10*3/uL High 0.0-0.8 [facility] Comment on above: Performed By: #### L [id number] ####Performance Manager: MARTIN REYES ([phone])[facility] [place] (SBHLAB)[address] Monocytes/100 WBC (Bld) 11.4 % High 2.0-10.0 [facility] Comment on above: Performed By: #### L [id number] ####Performance Manager: MARTIN REYES ([phone])[facility] [place] (SBHLAB)[address] Neutrophils (Bld) [#/Vol] 6.1 10*3/uL Normal 1.8-7.0 [facility] Comment on above: Performed By: #### L [id number] ####Performance Manager: MARTIN REYES ([phone])[facility] [place] (SBHLAB)[address] Neutrophils/100 WBC (Bld) 63.9 % Normal 40.0-80.0 [facility] Comment on above: Performed By: #### L [id number] ####Performance Manager: MARTIN REYES ([phone])[facility] [place] (SBHLAB)[address] NRBC (PER 100 WBCS) BY AUTOMATED COUNT 0.1 /100 WBCs Normal 0.0-2.0 [facility] Comment on above: Performed By: #### L [id number] ####Performance Manager: MARTIN REYES ([phone])[facility] (SBHLAB)[address] Platelet mean volume (Bld) [Entitic vol] 8.4 fL Normal 7.4-12.4 [facility] Comment on above: Performed By: #### L [id number] ####Performance Manager: MARTIN REYES ([phone])[facility] (SBHLAB)[address] [place] [address] [place] PLATELETS (10*3/UL) IN BLOOD AUTOMATED COUNT 252 10*3/uL Normal 140-[address] [facility] Comment on above: Performed By: #### L [id number] ####Performance Manager: MARTIN REYES ([phone])[facility] (SBHLAB)[address] RBC (Bld) [#/Vol] 4.16 10*6/uL Normal 3.8-5.20 [facility] Comment on above: Performed By: #### L [id number] ####Performance Manager: MARTIN REYES ([phone])[facility] [place] (SBHLAB)[address] [place] [address] [place] WBC (Bld) [#/Vol] 9.5 10*3/uL Normal 3.6-10.7 [facility] Comment on above: Performed By: #### L [id number] ####Performance Manager: MARTIN REYES ([phone])[facility] (SBHLAB)[address] COMPREHENSIVE METABOLIC PANE Real 03-02-2023 Albumin [Mass/Vol] 3.1 g/dL Low 3.5-5.0 [facility] Comment on above: Performed By: #### Eduardo TEAGUE, LAB17, [id number] ####Performance Manager: MARTIN REYES ([phone])[facility] (SBHLAB)[address] ALP [Catalytic activity/Vol] 100 U/L Normal 38-126 [facility] Comment on above: Performed By: #### Eduardo TEAGUE, LAB17, [id number] ####Performance Manager: MARTIN REYES ([phone])[facility] (SBHLAB)[address] ALT [Catalytic activity/Vol] 13 U/L Normal 0-34 [facility] Comment on above: Performed By: #### Eduardo TEAGUE, LAB17, [id number] ####Performance Manager: MARTIN REYES ([phone])[facility] (SBHLAB)[address] Anion gap [Moles/Vol] 3 mmol/L Normal 3-13 [facility] Comment on above: Performed By: #### Eduardo TEAGUE, LAB17, [id number] ####Performance Manager: MARTIN REYES ([phone])[facility] (SBHLAB)[address] AST [Catalytic activity/Vol] 22 U/L Normal 15-46 [facility] Comment on above: Performed By: #### Eduardo TEAGUE, LAB17, [id number] ####Performance Manager: MARTIN REYES ([phone])[facility] [place] (SBHLAB)[address] Bilirubin [Mass/Vol] 0.4 mg/dL Normal 0.2-1.3 [facility] Comment on above: Performed By: #### Eduardo TEAGUE, LAB17, [id number] ####Performance Manager: MATRIN REYES ([phone])[facility] [place] (SBHLAB)[address] Calcium [Mass/Vol] 8.4 mg/dL Normal 8.4-10.4 [facility] Comment on above: Performed By: #### Eduardo ABUmberto, LAB17, [id number] ####Performance Manager: MARTIN REYES ([phone])[facility] [place] (SBHLAB)[address] Chloride [Moles/Vol] 105 mmol/L Normal 98-107 [facility] Comment on above: Performed By: #### Eduardo TEAGUE, LAB17, [id number] ####Performance Manager: MARTIN REYES ([phone])[facility] [place] (SBHLAB)[address] CO2 [Moles/Vol] 27 mmol/L Normal 22-30 [facility] Comment on above: Performed By: #### Eduardo TEAGUE, LAB17, [id number] ####Performance Manager: MARTIN REYES ([phone])[facility] [place] (SBHLAB)[address] Creatinine [Mass/Vol] 0.77 mg/dL Normal 0.52-1.04 [facility] Comment on above: Performed By: #### Eduardo TEAGUE, LAB17, [id number] ####Performance Manager: MARTIN REYES ([phone])[facility] [place] (SBHLAB)[address] [place] [address] [place] GLOMERULAR FILTRATION RATE ML/MIN/1.73 SQ M.PREDICTED 78.6 mL/min/1.73m*2 Normal >60.0 [facility] Comment on above: Result Comment: Calc ulation based on the Chronic Kidney Disease Epidemiology Collaboration (CKD-EPI) equation refit without adjustment for race Performed By: #### Eduardo AB127, LAB17, [id number] ####Performance Manager: MARTIN REYES ([phone])[facility] [place] (SBHLAB)[address] Glucose [Mass/Vol] 97 mg/dL Normal 70-100 [facility] Comment on above: Performed By: #### Eduardo TEAGUE, LAB17, [id number] ####Performance Manager: MARTIN REYES ([phone])[facility] (SBHLAB)[address] Potassium [Moles/Vol] 4.1 mmol/L Normal 3.5-5.1 [facility] Comment on above: Performed By: #### Eduardo TEAGUE, LAB17, [id number] ####Performance Manager: MARTIN REYES ([phone])[facility] (SBHLAB)[address] Protein [Mass/Vol] 5.8 g/dL Low 6.3-8.2 [facility] Comment on above: Performed By: #### Eduardo TEAGUE, LAB17, [id number] ####Performance Manager: MARTIN REYES ([phone])[facility] (SBHLAB)[address] Sodium [Moles/Vol] 135 mmol/L Normal 135-145 [facility] Comment on above: Performed By: #### Eduardo TEAGUE, LAB17, [id number] ####Performance Manager: MARTIN REYES ([phone])[facility] (SBHLAB)[address] Urea nitrogen [Mass/Vol] 15 mg/dL Normal 7-17 [facility] Comment on above: Performed By: #### Eduardo TEAGUE, LAB17, [id number] ####Performance Manager: MARTIN REYES ([phone])[facility] (SBHLAB)[address] Comprehensive metabolic 1998 panelon 03-02-2023 Albumin [Mass/Vol] 3.1 g/dL Low 3.5 - 5.0 g/dL [facility] ALP [Catalytic activity/Vol] 100 U/L 38 - 126 U/L [facility] ALT [Catalytic activity/Vol] 13 U/L 0 - 34 U/L [facility] Anion gap [Moles/Vol] 3 mmol/L 3 - 13 mmol/L [facility] AST [Catalytic activity/Vol] 22 U/L 15 - 46 U/L [facility] Bilirubin [Mass/Vol] 0.4 mg/dL 0.2 - 1 .3 mg/dL [facility] Calcium [Mass/Vol] 8.4 mg/dL 8.4 - 10. 4 mg/dL [facility] Chloride [Moles/Vol] 105 mmol/L 98 - 10 7 mmol/L [facility] CO2 [Moles/Vol] 27 mmol/L 22 - 30 mmol/L [facility] Creatinine [Mass/Vol] 0.77 mg/dL 0.52 - 1.04 mg/dL [facility] GFR/1.73 sq M.predicted MDRD (S/P/Bld) [Vol rate/Area] 78.6 mL/min/{1.73_m2} - PINF [facility] Comment on above: Calculation based on the Chronic Kidney Disease Epidemiology Collaboration (CKD-EPI) equation refit without adjustment for race Glucose [Mass/Vol] 97 mg/dL 70 - 100 mg/dL [facility] Interpretation and review of laboratory results Abnormal [facility] Potassium [Moles/Vol] 4.1 mmol/L 3.5 - 5.1 mmol/L [facility] Protein [Mass/Vol] 5.8 g/dL Low 6.3 - 8.2 g/dL [facility] Sodium [Moles/Vol] 135 mmol/L 135 - 145 mmol/L [facility] Urea nitrogen [Mass/Vol] 15 mg/dL 7 - 17 mg/dL [facility] FREE T4on 03-02-2023 Free T4 [Mass/Vol] 3.28 ng/dL High 0.78-2.19 [facility] Comment on above: Performed By: #### L AB127, LAB17, [id number] ####Performance Manager: MARTIN REYES ([phone])[facility] (SBAB)[address] [place] [address] Free T4 [Mass/Vol]on 023 Free T4 Dialysis [Mass/Vol] 3.28 ng/dL High 0.78 - 2.19 ng/dL [facility] No Panel Informationon 03-02 Interpretation and review of laboratory results Abnormal [facility] POCT glucose meteron 023 Glucose [Mass/Vol] 175 mg/dL High 70 - 100 mg/dL [facility] Interpretation and review of laboratory results Abnormal [facility]formed by: [facility], [address] [facility] [address] CLIA ID: [id number] [facility] Glucose [Mass/Vol] 214 mg/dL High 70 - 100 mg/dL [facility] Interpretation and review of laboratory results Abnormal [facility] Performed by: [facility], [address] [facility] [address] CLIA ID: [id number] [facility] Glucose [Mass/Vol] 141 mg/dL High 70 - 100 mg/dL [facility] Interpretation and review of laboratory results Abnormal [facility] Performed by: [facility], [address] [facility] [address] CLIA ID: [id number] [facility] Progress Noteon 03-02-2023 Progress Note Department of Cdl Team Truck Driver al Medicine Division of Endocrinology, Diabetes, & Metabolism Endocrinology Note Patient Name: Radha Sandoval : 1945 AGE: 77 y.o. Room/Bed: [facility]/[address] Admission Date: 02/28/2023 Visit Date: 03/02/2023 Reason for Endocrine Consult: DM-Uncontrolled Provider/Team Requesting Consult: Dr. Finch PCP: Shiv Lopez MD Outpt Sizing Sprayer: No ASSESSMENT: Type II diabetes with hyperglycemia, with longterm insulin use Postoperative hypothyroidism Patient admitted for [...] daily before breakfast Patient to discharge to [facility] Outpt Follow Up-- PCP [...] diagnosis. She has been having diarrhea in [id number], smt severe Glimepiride- started in 2015 Trulicity [...] reviewed. Constituti (more content not included)... Normal [facility] Progress Note Occupational Therapy OCCUPATIONAL THERAPY [facility]'s Treatment Note Name/MRN: Radha Sandoval ([id number]) Date of : 1945 Age: 77 y.o. [...] to rehab service department Occupational Therapist Normal [facility] Progress Note [facility] Geriatric Medicine Inpatient Consult Service Admission Date: 02/28/2023 Assessment Principal Problem: LING (acute kidney injury) ([facility]/HCC) ([facility]) Active Problems: Declining functional status Weakness Anxiety Polypharmacy DNR (do not resuscitate) Insomnia Plan Declining functional status -Related to physical deconditioning, UTI, advanced age, diabetes type 2 -Continue PT/OT as able while inpatient -Anticipate d/c to SNF for ongoing daily PT/OT, patient agreeable to go to [facility] Fall Weakness -Multiple risk factors including [...] contact guard. Ambulated 30 ft x2. Recommending half-way facility . Review of Systems Constitutional: Negative [...] 2 pu (more content not included)... Normal [facility] Progress Note Nutrition rescreen completed. Pt referred to RD for uncontrolled DM, and nutrition supplement per Wound Care. Normal [facility] VITAMIN D DEFICIENCY SCREENI NG (VIT D 25)on 03-02-2023 VIT D 25-OH, TOTAL 17 ng/mL Low 30-100 [facility] Comment on above: Result Comment: LISA Mejia COMMENTS: Therapy is based on measurement of Total 25-OHD with the following classification levels: Less than 20 ng/mL: Indicative of Vit D deficiency 20-30 ng/mL: Suggests Vit D insufficiency Optimal: Greater than or equal to 30 ng/mL Test performed by Digital Lumens Competitive Immunoassay, measuring Total Vitamin D, not individual fractions. Performed By: #### L AB127, LAB17, [id number] ####Performance Manager: MARTIN REYES ([phone])[facility] (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 Therapy states SNF, but Patient wants HC instead. Normal [facility] CARECOORDon 03-01-2023 CARECOORD Care Managment Initi al Assessment Date: 03/01/2023 Patient Name: Radha Sandoval : 1945 Patient Information Source of Information: Patient Cognition/Language: WFL - Within Functional Limits Permission given to speak with patient fulfillment representative/caregive r as indicated: Yes Confirmation of [...] Prescription Coverage: Yes Pharmacy Used: [facility] Medication Management: Independent Transportation/Shopping : Independent Transportation [...] in SNF but would be able to [facility]. ROX[facility] liaison following, TCC to assist and follow as needed. Laura Jackson RN Normal [facility] CBC W Auto Differential pane l (Bld)Ordered By: Rosey Viera on 03-01-2023 Basophils (Bld) [#/Vol] 0.1 10*3/uL 0.0 - 0.2 10*3/uL [facility] Basophils/100 WBC (Bld) 0.6 % 0.0 - 2.0 % [facility] Eosinophils (Bld) [#/Vol] 0.2 10*3/uL 0.0 - 0.5 10*3/uL [facility] Eosinophils/100 WBC (Bld) 1.4 % 1.0 - 6.0 % [facility] Erythrocyte distribution width (RBC) [Ratio] 13.6 % 11.5 - 14.5 % [facility] Hematocrit (Bld) [Volume fraction] 34.9 % Low 35.0 - 47.0 % [facility] Hemoglobin (Bld) [Mass/Vol] 11.5 g/dL Low 11.7 - 16.0 g/dL [facility] Interpretation and review of laboratory results Abnormal [facility] Lymphocytes (Bld) [#/Vol] 1.7 10*3/uL 1.0 - 4.3 10*3/uL [facility] Lymphocytes/100 WBC (Bld) 12.6 % Low 20.0 - 40.0 % [facility] MCH (RBC) [Entitic mass] 28.7 pg 26.0 - 34.0 pg [facility] MCHC (RBC) [Mass/Vol] 33.0 % 32.0 - 36.0 % [facility] MCV (RBC) [Entitic vol] 87.1 fL 80.0 - 98.0 fL [facility] Monocytes (Bld) [#/Vol] 1.5 10*3/uL High 0.0 - 0.8 10*3/uL [facility] Monocytes/100 WBC (Bld) 10.8 % High 2.0 - 10.0 % [facility] Neutrophils (Bld) [#/Vol] 10.3 10*3/uL High 1.8 - 7.0 10*3/uL [facility] Neutrophils/100 WBC (Bld) 74.6 % 40.0 - 80.0 % [facility] Nucleated RBC/100 WBC (Bld) [Ratio] 0.0 % [facility] Platelet mean volume (Bld) [Entitic vol] 8.5 fL 7.4 - 12.4 fL [facility] Platelets (Bld) [#/Vol] 271 10*3/uL 140 - 440 10*3/uL [facility] RBC (Bld) [#/Vol] 4.00 10*6/uL 3.8 - 5.20 10*6/uL [facility] WBC (Bld) [#/Vol] 13.8 10*3/uL High 3.6 - 10.7 10*3/uL [facility] CBC WITH AUTO DIFFERENTIALon 03-01-2023 Basophils (Bld) [#/Vol] 0.1 10*3/uL Normal 0.0-0.2 [facility] Comment on above: Performed By: #### L [id number] ####Performance Manager: MARTIN REYES ([phone])[facility] [place] ([facility])[address] Basophils/100 WBC (Bld) 0.6 % Normal 0.0-2.0 S [facility] Comment on above: Performed By: #### L [id number] ####Performance Manager: MARTIN REYES ([phone])[facility] (SBHLAB)[address] [place] [address] Eosinophils (Bld) [#/Vol] 0.2 10*3/uL Normal 0.0-0.5 [facility] Comment on above: Performed By: #### L [id number] ####Performance Manager: MARTIN REYES ([phone])[facility] [place] (SB[facility])[address] [place] [address] Eosinophils/100 WBC (Bld) 1.4 % Normal 1.0-6.0 [facility] Comment on above: Performed By: #### L [id number] ####Performance Manager: MARTIN REYES ([phone])[facility] [place] ([facility])[address] [place] [address] Erythrocyte distribution width (RBC) [Ratio] 13.6 % Normal 11.5-14.5 [facility] Comment on above: Performed By: #### L [id number] ####Performance Manager: MARTIN REYES ([phone])[facility] ([facility])[address] [place] [address] ERYTHROCYTE MEAN CORPUSCULAR HEMOGLOBIN CONCENTRATION (G/DL) BY AUTOMATED 33.0 % Normal 32.0-36.0 [facility] Comment on above: Performed By: #### L [id number] ####Performance Manager: MARTIN HUANateJOSE R ([phone])[facility] [employer] (SBHLAB)[address] [place] [address] Hematocrit (Bld) [Volume fraction] 34.9 % Low 35.0-47.0 [facility] Comment on above: Performed By: #### L [id number] ####Performance Manager: MARTIN ERIC ([phone])[facility] Hemoglobin (Bld) [Mass/Vol] 11.5 g/dL Low 11.7-16.0 [facility] Comment on above: Performed By: #### L [id number] ####Performance Manager: MARTIN ERIC ([id number])[facility] ([facility])[address] [place] [address] Lymphocytes (Bld) [#/Vol] 1.7 10*3/uL Normal 1.0-4.3 [facility] Comment on above: Performed By: #### L [id number] ####Performance Manager: MARTIN AMBROSEJOSE R ([phone])[facility] ([facility])[address] [place] [address] Lymphocytes/100 WBC (Bld) 12.6 % Low 20.0-40.0 [facility] Comment on above: Performed By: #### L [id number] ####Performance Manager: MARTIN AMBROSEJOSE R ([phone])[facility])[address] [place] [address] MCH (RBC) [Entitic mass] 28.7 pg Normal 26.0-34.0 [facility] Comment on above: Performed By: #### L [id number] ####Performance Manager: MARTIN AMBROSEJOSE R ([phone])[facility])[address] [place] [address] MCV (RBC) [Entitic vol] 87.1 fL Normal 80.0-98.0 S [facility] Comment on above: Performed By: #### L [id number] ####Performance Manager: MARTIN AMBROSEJOSE R ([phone])[facility] [place] (SBHL[facility])[address] Monocytes (Bld) [#/Vol] 1.5 10*3/uL High 0.0-0.8 [facility] Comment on above: Performed By: #### L [id number] ####Performance Manager: MARTIN HUAWILFREDO ([id number])[facility] [place] (SB[facility])[address] Monocytes/100 WBC (Bld) 10.8 % High 2.0-10.0 S [facility] Comment on above: Performed By: #### L [id number] ####Performance Manager: MARTIN HUAWILFREDO ([phone])[facility] [place] (SB[facility])[address] Neutrophils (Bld) [#/Vol] 10.3 10*3/uL High 1.8-7.0 [facility] Comment on above: Performed By: #### L [id number] ####Performance Manager: MARTIN HUAWILFREDO ([phone])[facility] [place] ([facility])[address] Neutrophils/100 WBC (Bld) 74.6 % Normal 40.0-80.0 [facility] Comment on above: Performed By: #### L [id number] ####Performance Manager: MARTIN HUAWILFREDO ([phone])[facility] [place] (SBHL[facility])[address] [place] [address] [place] NRBC (PER 100 WBCS) BY AUTOMATED COUNT 0.0 /100 WBCs Normal 0.0-2.0 [facility] Comment on above: Performed By: #### L [id number] ####Performance Manager: MARTIN AMBROSEJOSE R ([id number])[facility] [place] ([facility])[address] [place] [address] [place] Platelet mean volume (Bld) [Entitic vol] 8.5 fL Normal 7.4-12.4 [facility] Comment on above: Performed By: #### L [id number] ####Performance Manager: MARTIN REYES ([id number])[facility] [place] ([facility])[address] PLATELETS (10*3/UL) IN BLOOD AUTOMATED COUNT 271 10*3/uL Normal 140-[address] [facility] Comment on above: Performed By: #### L [id number] ####Performance Manager: MARTIN REYES ([phone])[facility] [place] ([facility])[address] RBC (Bld) [#/Vol] 4.00 10*6/uL Normal 3.8-5.20 [facility] Comment on above: Performed By: #### L [id number] ####Performance Manager: MARTIN REYES ([phone])[facility] [place] ([facility])[address] WBC (Bld) [#/Vol] 13.8 10*3/uL High 3.6-10.7 [facility] Comment on above: Performed By: #### L [id number] ####Performance Manager: MARTIN REYES ([phone])[facility] [place] ([facility])[address] COMPREHENSIVE METABOLIC PANE Real 03-01-2023 Albumin [Mass/Vol] 3.1 g/dL Low 3.5-5.0 [facility] Comment on above: Performed By: #### L [id number] ####Performance Manager: MARTIN REYES ([phone])[facility] [place] ([facility])[address] ALP [Catalytic activity/Vol] 102 U/L Normal 38-126 [facility] Comment on above: Performed By: #### L [id number] ####Performance Manager: MARTIN REYES ([id number])[facility] [place] ([facility])[address] ALT [Catalytic activity/Vol] 16 U/L Normal 0-34 [facility] Comment on above: Performed By: #### L [id number] ####Performance Manager: MARTIN REYES ([phone])[facility] [place] ([facility])[address] Anion gap [Moles/Vol] 9 mmol/L Normal 3-13 [facility] Comment on above: Performed By: #### L [id number] ####Performance Manager: MARTIN REYES ([id number])[facility] [place] ([facility])[address] AST [Catalytic activity/Vol] 24 U/L Normal 15-46 [facility] Comment on above: Performed By: #### L [id number] ####Performance Manager: MARTIN REYES ([phone])[facility] [place] ([facility])[address] Bilirubin [Mass/Vol] 0.4 mg/dL Normal 0.2-1.3 [facility] Comment on above: Performed By: #### L [id number] ####Performance Manager: MARTIN REYES ([phone])[facility] [place] ([facility])[address] Calcium [Mass/Vol] 8.3 mg/dL Low 8.4-10.4 [facility] Comment on above: Performed By: #### L [id number] ####Performance Manager: MARTIN REYES ([phone])[facility] [place] ([facility])[address] Chloride [Moles/Vol] 102 mmol/L Normal 98-107 [facility] Comment on above: Performed By: #### L [id number] ####Performance Manager: MARTIN REYES ([phone])[facility] [place] ([facility])[address] CO2 [Moles/Vol] 26 mmol/L Normal 22-30 [facility] Comment on above: Performed By: #### L [id number] ####Performance Manager: MARTIN REYES ([phone])[facility] [place] ([facility])[address] Creatinine [Mass/Vol] 0.96 mg/dL Normal 0.52-1.04 [facility] Comment on above: Performed By: #### L [id number] ####Performance Manager: MARTIN REYES ([phone])[facility] ([facility])[address] GLOMERULAR FILTRATION RATE ML/MIN/1.73 SQ M.PREDICTED 60.3 mL/min/1.73m*2 Normal >60.0 [facility] Comment on above: Result Comment: Calc ulation based on the Chronic Kidney Disease Epidemiology Collaboration (CKD-EPI) equation refit without adjustment for race Performed By: #### L [id number] ####Performance Manager: MARTIN REYES ([phone])[facility] [place] ([facility])[address] Glucose [Mass/Vol] 123 mg/dL High 70-100 [facility] Comment on above: Performed By: #### L [id number] ####Performance Manager: MARTIN REYES ([phone])[facility] [place] ([facility])[address] Potassium [Moles/Vol] 4.3 mmol/L Normal 3.5-5.1 [facility] Comment on above: Performed By: #### L [id number] ####Performance Manager: MARTIN REYES ([phone])[facility] [place] ([facility])[address] [place] [address] [place] Protein [Mass/Vol] 6.0 g/dL Low 6.3-8.2 [facility] Comment on above: Performed By: #### L [id number] ####Performance Manager: MARTIN REYES ([id number])[facility] ([facility])[address] [place] [address] [place] Sodium [Moles/Vol] 137 mmol/L Normal 135-145 [facility] Comment on above: Performed By: #### L [id number] ####Performance Manager: MARTIN FLEMINGCER ([phone])[facility] (SB[facility])[address] Urea nitrogen [Mass/Vol] 17 mg/dL Normal 7-17 [facility] Comment on above: Performed By: #### L [id number] ####Performance Manager: MARTIN ERIC ([id number])[facility] ([facility])[address] Comprehensive metabolic 1998 panelon 03-01-2023 Albumin [Mass/Vol] 3.1 g/dL Low 3.5 - 5.0 g/dL [facility] ALP [Catalytic activity/Vol] 102 U/L 38 - 126 U/L [facility] ALT [Catalytic activity/Vol] 16 U/L 0 - 34 U/L [facility] Anion gap [Moles/Vol] 9 mmol/L 3 - 13 mmol/L [facility] AST [Catalytic activity/Vol] 24 U/L 15 - 46 U/L [facility] Bilirubin [Mass/Vol] 0.4 mg/dL 0.2 - 1 .3 mg/dL [facility] Calcium [Mass/Vol] 8.3 mg/dL Low 8.4 - 10. 4 mg/dL [facility] Chloride [Moles/Vol] 102 mmol/L 98 - 10 7 mmol/L [facility] CO2 [Moles/Vol] 26 mmol/L 22 - 30 mmol/L [facility] Creatinine [Mass/Vol] 0.96 mg/dL 0.52 - 1.04 mg/dL [facility] GFR/1.73 sq M.predicted MDRD (S/P/Bld) [Vol rate/Area] 60.3 mL/min/{1.73_m2} - PINF [facility] Comment on above: Calculation based on the Chronic Kidney Disease Epidemiology Collaboration (CKD-EPI) equation refit without adjustment for race Glucose [Mass/Vol] 123 mg/dL High 70 - 100 mg/dL [facility] Interpretation and review of laboratory results Abnormal [facility] Potassium [Moles/Vol] 4.3 mmol/L 3.5 - 5.1 mmol/L [facility] Protein [Mass/Vol] 6.0 g/dL Low 6.3 - 8.2 g/dL [facility] Sodium [Moles/Vol] 137 mmol/L 135 - 145 mmol/L [facility] Urea nitrogen [Mass/Vol] 17 mg/dL 7 - 17 mg/dL [facility] Consulton 03-01-2023 Consult [facility] CONSULT Note Radha Sandoval AGE: [...] diabetes mellitus with hyperglycemia ([facility]) 01/16/2020 Morbidly obese (HCC) 01/16/2020 Vitamin D deficiency 01/16/2020 Moderate episode of recurrent major depressive disorder (HCC) 06/03/2019 OAB (overactive bladder) 05/06/2021 Localized edema 10/01/2020 Insomnia 04/06/2015 Dyspnea on exertion 09/09/2021 Muscle spasms of both lower extremities 09/09/2021 Chronic renal insufficiency, stage III (moderate) ([facility]) 06/03/2019 Restless legs syndrome (RLS) 01/14/2015 [...] 12/07/2022 Performed by Avery Marshall DO at [facility] ENDOSCOPY EYE SURGERY Bilateral early 90's LUNG [...] tablet 0 ergocalciferol (Vitamin D-2) 1.25 MG (79796 UT) capsule Take 1 capsule (1.25 mg) by mouth 1 (one) time per week. 90 capsule 1 Glucose Blood (Blood Glucose Test) strip 4 times daily. hydrOX (more content not included)... Normal [facility] Consult [facility] Geriatric Medicine Inpatient Consult Service Admission Date: 02/28/2023 Admission Status: INPATIENT Chief Complaint: I couldn't get around and they directed me to the hospital because I was peeing constantly from that UTI. Reason for Appointment Geriatrics consulted for functional decline Assessment/Plan Principal Problem: LING (acute kidney injury) (CMS/[facility]) ([facility]) Active Problems: Declining functional status Weakness [...] necessary I recommended follow up at our [facility] at [phone]. Call in 2 weeks for memory (re)testing once acute issue(s) resolve - order placed in [facility] for follow-up Other I deferred [...] well overnight. Awo (more content not included)... [facility] Consult This patient is not a new diabetic or new to insulin therapy and therefore does not meet our current criteria for the inpatient diabetes education service. The clinical bedside RN should provide any necessary diabetes education using the Diabetes Survival Skills Booklet available on the unit. Please consider a dietary consult if appropriate and if not already ordered. Contact [facility] to Beds pharmacist for assistance if a new glucometer or any associated supplies are needed. Thank you. Elder MUÑOZ,BSN,[facility] Consult Department of Cdl Team Truck Driver al Medicine Division of Endocrinology, Diabetes, & Metabolism Endocrinology Note Patient Name: Radha Sandoval : 1945 AGE: 77 y.o. Room/Bed: [facility]153/[facility] A Admission Date: 02/28/2023 Visit Date: 03/01/2023 Reason for Endocrine Consult: DM-Uncontrolled Provider/Team Requesting Consult: Dr. Finch PCP: Shiv Lopez MD Outpt Sizing Sprayer: No ASSESSMENT: Type II diabetes with hyperglycemia, with longterm insulin use Postoperative hypothyroidism PLAN: Humalog 6 [...] diagnosis. She has been having diarrhea in [id number], smt severe Glimepiride- started in 2015 Trulicity [...] Heart s (more content not included)... Normal [facility] HEMOGLOBIN A1Con 03-01-2023 Glucose [Mass/Vol] 315 mg/dL Normal [facility] Comment on above: Performed By: #### L [id number] ####Performance Manager: MARTIN REYES ([phone])[facility] ([facility])[address] [place] [address] HbA1c (Bld) [Mass fraction] 12.6 % High <5.7 [facility] Comment on above: Result Comment: Norm al less than 5.7% Prediabetes 5.7% to 6.4% Diabetes 6.5% or higher --HgbA1C levels may not be accurate in patients who have renal disease, received recent blood transfusions, are anemic, or who have dyshemoglobinemia. Performed By: #### L AB90 ####Performance Manager: MARTIN REYES ([phone])[facility] ([facility])[address] [place] [address] HbA1c (Bld) [Mass fraction]o n 03-01-2023 Average glucose Estimated from glycated hemoglobin (Bld) [Mass/Vol] 315 mg/dL [facility] Interpretation and review of laboratory results Abnormal [facility] Hemoglobin A1con 03-01-2023 HbA1c (Bld) [Mass fraction] 12.6 % High NINF - 5.7 % [facility] Comment on above: Normal less than 5.7 % Prediabetes 5.7% to 6.4% Diabetes 6.5% or higher --HgbA1C levels may not be accurate in patients who have renal disease, received recent blood transfusions, are anemic, or who have dyshemoglobinemia. POCT glucose meteron 023 Glucose [Mass/Vol] 194 mg/dL High 70 - 100 mg/dL [facility] Interpretation and review of laboratory results Abnormal [facility] Performed by: [facility], [address] [place] [address] CLIA ID: [id number] [facility] Glucose [Mass/Vol] 95 mg/dL 70 - 100 mg/dL [facility] Interpretation and review of laboratory results Normal [facility] Performed by: [facility] [place] [facility], [address] [facility] [address] CLIA ID: [id number] [facility] Glucose [Mass/Vol] 153 mg/dL High 70 - 100 mg/dL [facility] Interpretation and review of laboratory results Abnormal [facility] Performed by: [facility] [place] [facility], [address] [facility] [address] CLIA ID: [id number] [facility] Glucose [Mass/Vol] 172 mg/dL High 70 - 100 mg/dL [facility] Interpretation and review of laboratory results Abnormal [facility] Performed by: [facility] [place] [facility], [address] [facility] [address] CLIA ID: [id number] [facility] PROCALCITONIN TESTon 023 PROCALCITONIN 0.05 ng/mL Normal 0.00-0.09 [facility] Comment on above: Result Comment: LISA Mejia COMMENTS: PCT <0.50 = Low risk of severe sepsis and/or septic shock. PCT >2.00 = High risk of severe sepsis and/or septic shock. Performed By: #### L [id number] ####Performance Manager: ASHLEY LLANOS ([phone])[facility] ([address] Procalcitonin Teston 023 Procalcitonin [Mass/Vol] 0.05 ng/mL 0.00 - 0.09 ng/mL [facility] Procalcitonin [Mass/Vol]on 0 03-01-2023 Interpretation and review of laboratory results Normal [facility] PCT <0.50 = Low risk of severe sepsis and/or septic shock. PCT >2.00 = High risk of severe sepsis and/or septic shock. [facility] Progress Noteon 03-01-2023 Progress Note Physical Therapy Facility/Department: [address] Physical Therapy Initial Evaluation NAME: Radha Sandoval : 1945 Date of Service: 03/01/2023 Discharge Recommendations: Long Term Facility, Continue to assess pending progress PT [...] (acute kidney injury) (CMS/HCC) ([facility]). Diagnoses of Pyelonephritis, Polypharmacy, Insomnia, unspecified type, and Pressure ulcer of right buttock, stage [address] ([facility]) were also pertinent to this visit. [...] Device: straight cane Transfer Assistance: Independent Active Industrial Psychology Teacher: Yes Objective Observation/Palpation Posture: Good Observation: PIV [...] from lucy (more content not included)... Normal [facility] Progress Note Occupational Therapy OCCUPATIONAL THERAPY [facility] Initial Evaluation Name/MRN: Radha Sandoval ([id number]) Evaluation Date: 03/01/2023 Date of : 1945 [...] 12/07/2022 Performed by Avery Marshall DO at [facility] ENDOSCOPY EYE SURGERY Bilateral early 90' LUNG REMOVAL, PARTIAL Left ROTATOR CUFF REPAIR Left TONSILLECTOMY Admission Diagnosis: Patient Active Problem List Diagnosis Date Noted LING (acute kidney injury) ([facility]/HCC) (HCC) 02/28/2023 Acute cystitis with hematuria [...] diabetes mellitus with hyperglycemia ([facility]) 01/16/2020 Morbidly obese ([facility]) 01/16/2020 Vitamin D deficiency 01/16/2020 Moderate episode of recurrent major depressive disorder ([facility]) 06/03/2019 Chronic renal insufficiency, stage III (moderate) ([facility]) 06/03/2019 Hyperlipidemia with target LDL less [...] Responsibilities: Independent Receives Help From: None Active Industrial Psychology Teacher: Yes Prior Level of Function ADL Assistance: [...] Adls. Upper Ext (more content not included)... [facility] 36on 02-28-2023 36 Noted. Patient sana mendenhall notified. See previous TE if needed. [facility] 36 Called and spoke wit [...] states that she will be going to [facility]. [place] [address] S: Christine from [employer] [phone] spoke with [facility] nurse regarding critical lab results B: Glucose A: Blood was drawn yesterday. Glucose was 524, resulting this morning. Verified with repeat analysis. The lab work was ordered by Katia Granados CNP. R: Since office is open, called back line and spoke with Katia Schulz's nurse. Result given. No further instructions to the [facility] nurse. Reason for Disposition Lab or radiology calling with CRITICAL test results Protocols used: PCP Call - No [facility] CARECOORDon 02-28-2023 [facility] Next Site of Care Admission Date: 02/28/2023 11:30 AM Patient Name: RADHA SANDOVAL Location: [facility] 1E MED SURG/[facility] [id number] A Date of : 1945 - Placement Information - Referral Type:Fci/SNF - New Referral ID:[facility]-[id number] Provider Name:[facility] Transitional Care Unit [facility] Address 1:[address] [place] [address] Address 2: City:[place] Selection Factors:Patient/Family Choice State:[place] Normal [facility] CBC W Auto Differential pane l (Bld)Ordered By: Clayton Lozano on 02-28-2023 Basophils (Bld) [#/Vol] 0.1 10*3/uL 0.0 - 0.2 10*3/uL [facility] Basophils/100 WBC (Bld) 0.5 % 0.0 - 2.0 % [facility] Eosinophils (Bld) [#/Vol] 0.1 10*3/uL 0.0 - 0.5 10*3/uL [facility] Eosinophils/100 WBC (Bld) 0.9 % Low 1.0 - 6.0 % [facility] Erythrocyte distribution width (RBC) [Ratio] 13.8 % 11.5 - 14.5 % [facility] Hematocrit (Bld) [Volume fraction] 36.0 % 35.0 - 47.0 % [facility] Hemoglobin (Bld) [Mass/Vol] 11.5 g/dL Low 11.7 - 16.0 g/dL [facility] Interpretation and review of laboratory results Abnormal [facility] [facility] Lymphocytes (Bld) [#/Vol] 0.8 10*3/uL Low 1.0 - 4.3 10*3/uL [facility] Lymphocytes/100 WBC (Bld) 6.4 % Low 20.0 - 40.0 % [facility] MCH (RBC) [Entitic mass] 28.0 pg 26.0 - 34.0 pg [facility] MCHC (RBC) [Mass/Vol] 32.0 % 32.0 - 36.0 % [facility] MCV (RBC) [Entitic vol] 87.5 fL 80.0 - 98.0 fL [facility] Monocytes (Bld) [#/Vol] 1.1 10*3/uL High 0.0 - 0.8 10*3/uL [facility] Monocytes/100 WBC (Bld) 9.0 % 2.0 - 10.0 % [facility] Neutrophils (Bld) [#/Vol] 10.2 10*3/uL High 1.8 - 7.0 10*3/uL [facility] Neutrophils/100 WBC (Bld) 83.2 % High 40.0 - 80.0 % [facility] Nucleated RBC/100 WBC (Bld) [Ratio] 0.0 % [facility] Platelet mean volume (Bld) [Entitic vol] 8.6 fL 7.4 - 12.4 fL [facility] Platelets (Bld) [#/Vol] 278 10*3/uL 140 - 440 10*3/uL [facility] RBC (Bld) [#/Vol] 4.11 10*6/uL 3.8 - 5.20 10*6/uL [facility] WBC (Bld) [#/Vol] 12.3 10*3/uL High 3.6 - 10.7 10*3/uL [facility] CBC WITH AUTO DIFFERENTIALon 02-28-2023 Basophils (Bld) [#/Vol] 0.1 10*3/uL Normal 0.0-0.2 [facility] Comment on above: Performed By: #### L [id number] ####Performance Manager: MARTIN REYES ([phone])[facility] ([facility])[address] [place] [address] Basophils/100 WBC (Bld) 0.5 % Normal 0.0-2.0 S [facility] Comment on above: Performed By: #### L [id number] ####Performance Manager: MARTINDWAINE REYES ([phone])[facility] [place] ([facility])[address] Eosinophils (Bld) [#/Vol] 0.1 10*3/uL Normal 0.0-0.5 [facility] Comment on above: Performed By: #### L [id number] ####Performance Manager: MARTIN ERIC ([phone])[facility] [place] ([facility])[address] Eosinophils/100 WBC (Bld) 0.9 % Low 1.0-6.0 [facility] Comment on above: Performed By: #### L [id number] ####Performance Manager: MARTINDWAINE REYES ([phone])[facility] [place] ([facility])[address] [place] [address] Erythrocyte distribution width (RBC) [Ratio] 13.8 % Normal 11.5-14.5 [facility] Comment on above: Performed By: #### L [id number] ####Performance Manager: MARTIN ERIC ([phone])[facility] ([facility])[address] ERYTHROCYTE MEAN CORPUSCULAR HEMOGLOBIN CONCENTRATION (G/DL) BY AUTOMATED 32.0 % Normal 32.0-36.0 [facility] Comment on above: Performed By: #### L [id number] ####Performance Manager: MARTIN AMBROSEJOSE R ([phone])[facility] [place] ([facility])[address] Hematocrit (Bld) [Volume fraction] 36.0 % Normal 35.0-47.0 [facility] Comment on above: Performed By: #### L [id number] ####Performance Manager: MARTIN HUAWILFREDO ([phone])[facility] [place] ([facility])[address] Hemoglobin (Bld) [Mass/Vol] 11.5 g/dL Low 11.7-16.0 [facility] Comment on above: Performed By: #### L [id number] ####Performance Manager: MARTIN REYES ([phone])[facility] [place] ([facility])[address] Lymphocytes (Bld) [#/Vol] 0.8 10*3/uL Low 1.0-4.3 [facility] Comment on above: Performed By: #### L [id number] ####Performance Manager: MARTIN REYES ([phone])[facility] [place] ([facility])[address] Lymphocytes/100 WBC (Bld) 6.4 % Low 20.0-40.0 [facility] Comment on above: Performed By: #### L [id number] ####Performance Manager: MARTIN REYES ([phone])[facility] (SB[facility])[address] [place] [address] MCH (RBC) [Entitic mass] 28.0 pg Normal 26.0-34.0 [facility] Comment on above: Performed By: #### L [id number] ####Performance Manager: MARTIN REYES ([phone])[facility] [place] ([facility])[address] [place] [address] MCV (RBC) [Entitic vol] 87.5 fL Normal 80.0-98.0 S [facility] Comment on above: Performed By: #### L [id number] ####Performance Manager: MARTIN REYES ([phone])[facility] [place] ([facility])[address] [place] [address] Monocytes (Bld) [#/Vol] 1.1 10*3/uL High 0.0-0.8 [facility] Comment on above: Performed By: #### L [id number] ####Performance Manager: MARTIN REYES ([phone])[facility] [place] ([facility])[address] Monocytes/100 WBC (Bld) 9.0 % Normal 2.0-10.0 S [facility] Comment on above: Performed By: #### L [id number] ####Performance Manager: MARTIN REYES ([phone])[facility] [place] (SBHL[facility])[address] Neutrophils (Bld) [#/Vol] 10.2 10*3/uL High 1.8-7.0 [facility] Comment on above: Performed By: #### L [id number] ####Performance Manager: MARTIN REYES ([phone])[facility] [place] ([facility])[address] Neutrophils/100 WBC (Bld) 83.2 % High 40.0-80.0 [facility] Comment on above: Performed By: #### L [id number] ####Performance Manager: MARTIN REYES ([phone])[facility] [place] ([facility])[address] NRBC (PER 100 WBCS) BY AUTOMATED COUNT 0.0 /100 WBCs Normal 0.0-2.0 [facility] Comment on above: Performed By: #### L [id number] ####Performance Manager: MARTIN REYES ([phone])[facility] [place] ([facility])[address] Platelet mean volume (Bld) [Entitic vol] 8.6 fL Normal 7.4-12.4 [facility] Comment on above: Performed By: #### L [id number] ####Performance Manager: MARTIN REYES ([phone])[facility] [place] ([facility])[address] [place] [address] [place] PLATELETS (10*3/UL) IN BLOOD AUTOMATED COUNT 278 10*3/uL Normal 140-440 [facility] Comment on above: Performed By: #### L [id number] ####Performance Manager: MARTIN REYES ([phone])[facility] [place] ([facility])[address] [place] [address] [place] RBC (Bld) [#/Vol] 4.11 10*6/uL Normal 3.8-5.20 [facility] Comment on above: Performed By: #### L [id number] ####Performance Manager: MARTIN REYES ([phone])[facility] (SBHLAB)[address] WBC (Bld) [#/Vol] 12.3 10*3/uL High 3.6-10.7 [facility] Comment on above: Performed By: #### L [id number] ####Performance Manager: MARTIN REYES ([phone])[facility] COMPLETE URINALYSISon 2022 BACTERIA (#/HPF) IN URINE Moderate Abnormal Negative [facility] Comment on above: Performed By: #### L [id number] ####Performance Manager: MARTIN REYES ([phone])[facility] [place] [address] BILIRUBIN, TOTAL PRESENCE IN URINE Negative Normal Negative [facility] Comment on above: Performed By: #### L [id number] ####Performance Manager: MARITN REYES ([phone])[facility] ([facility])[address] [place] [address] Clarity (U) Turbid Abnormal Clear [facility] Comment on above: Performed By: #### L [id number] ####Performance Manager: MARTIN REYES ([phone])[facility] [place] [address] Color (U) Light Yellow Normal Lt. Yellow [facility] Comment on above: Performed By: #### L [id number] ####Performance Manager: MARTIN REYES ([phone])[facility] ([facility])[address] [place] [address] GLUCOSE (MG/DL) IN URINE >1,000 Abnormal Normal (<70) [facility] Comment on above: Performed By: #### L [id number] ####Performance Manager: MARTIN AMBROSEJOSE R ([phone])[facility] [place] ([facility])[address] GRANULAR CASTS (#/LPF) IN URINE 0-2 Abnormal Negative [facility] Comment on above: Performed By: #### L [id number] ####Performance Manager: MARTIN AMBROSEJOSE R ([phone])[facility] [place] ([facility])[address] HEMOGLOBIN PRESENCE IN URINE Negative Normal Negative [facility] Comment on above: Performed By: #### L [id number] ####Performance Manager: MARTIN HUAWILFREDO ([phone])[facility] [place] ([facility])[address] HYALINE CASTS (#/LPF) IN URINE SEDIMENT BY MICROSCOPY 3-5 Abnormal Negative [facility] Comment on above: Performed By: #### L [id number] ####Performance Manager: MARTIN AMBROSEJOSE R ([phone])[facility] [place] ([facility])[address] Ketones Ql (U) Negative Normal Negative [facility] Comment on above: Performed By: #### L [id number] ####Performance Manager: MARTIN AMBROSEJOSE R ([phone])[facility] [place] ([facility])[address] LEUKOCYTE ESTERASE PRESENCE IN URINE BY TEST STRIP 250 Sandeep/uL Abnormal Negative [facility] Comment on above: Performed By: #### L [id number] ####Performance Manager: MARTIN HUAWILFREDO ([phone])[facility] [place] ([facility])[address] [place] [address] [place] MUCUS (#/LPF) IN URINE SEDIMENT Few Normal Negative [facility] Comment on above: Performed By: #### L [id number] ####Performance Manager: MARTIN AMBROSEJOSE R ([phone])[facility] [place] ([facility])[address] [place] [address] [place] NITRITE PRESENCE IN URINE Positive Abnormal Negative [facility] Comment on above: Performed By: #### L [id number] ####Performance Manager: MARTIN REYES ([phone])[facility] [place] ([facility])[address] pH (U) 5.0 [pH] Normal 5.0-8.0 [facility] Comment on above: Performed By: #### L [id number] ####Performance Manager: MRATIN REYES ([phone])[facility] [place] ([facility])[address] Protein (U) [Mass/Vol] 20 mg/dL Abnormal Negative [facility] Comment on above: Performed By: #### L [id number] ####Performance Manager: MARTIN REYES ([phone])[facility] ([facility])[address] [place] [address] RBC (#/HPF) IN URINE SEDIMENT 0-2 Normal 0-2 [facility] Comment on above: Performed By: #### L [id number] ####Performance Manager: MARTIN REYES ([phone])[facility] [place] ([facility])[address] [place] [address] Specific gravity (U) [Rel density] 1.020 Normal 1.005-1.030 [facility] Comment on above: Performed By: #### L [id number] ####Performance Manager: MARTIN REYES ([phone])[facility] SQUAMOUS EPITHELIAL CELLS (#/HPF) IN URINE SEDIMENT 3-5 Normal 3-5 [facility] Comment on above: Performed By: #### L [id number] ####Performance Manager: MARTIN REYES ([phone])[facility] [place] [address] UROBILINOGEN (MG/DL) IN URINE Normal Normal Normal (0-1) [facility] Comment on above: Performed By: #### L [id number] ####Performance Manager: MARTIN REYES ([phone])[facility] [place] ([facility])[address] WBC (LEUKOCYTE) (#/HPF) IN URINE SEDIMENT 11-25 Abnormal 0-5 [facility] Comment on above: Performed By: #### L [id number] ####Performance Manager: MARTIN REYES ([phone])[facility] [place] ([facility])[address] WBC (LEUKOCYTE) CLUMPS (#/HPF) IN URINE SEDIMENT Occasional Abnormal Negative [facility] Comment on above: Performed By: #### L [id number] ####Performance Manager: MARTIN REYES ([phone])[facility] [place] ([facility])[address] YEAST (#/HPF) IN URINE Few Abnormal Negative [facility] Comment on above: Performed By: #### L [id number] ####Performance Manager: MARTIN REYES ([phone])[facility] [place] ([facility])[address] COMPREHENSIVE METABOLIC PANE Real 02-28-2023 Albumin [Mass/Vol] 3.7 g/dL Normal 3.5-5.0 [facility] Comment on above: Performed By: #### L AB17 ####Performance Manager: MARTIN REYES ([phone])[facility] [place] ([facility])[address] ALP [Catalytic activity/Vol] 119 U/L Normal 38-126 [facility] Comment on above: Performed By: #### L AB17 ####Performance Manager: MARTIN REYES ([phone])[facility] [place] ([facility])[address] ALT [Catalytic activity/Vol] 18 U/L Normal 0-34 [facility] Comment on above: Performed By: #### L AB17 ####Performance Manager: MARTIN REYES ([phone])[facility] [place] ([facility])[address] Anion gap [Moles/Vol] 8 mmol/L Normal 3-13 [facility] Comment on above: Performed By: #### L AB17 ####Performance Manager: MARTIN REYES ([phone])[facility] [place] ([facility])[address] AST [Catalytic activity/Vol] 24 U/L Normal 15-46 [facility] Comment on above: Performed By: #### L AB17 ####Performance Manager: MARTIN REYES ([phone])[facility] [place] ([facility])[address] Bilirubin [Mass/Vol] 0.5 mg/dL Normal 0.2-1.3 [facility] Comment on above: Performed By: #### L AB17 ####Performance Manager: MARTIN REYES ([phone])[facility] [place] ([facility])[address] Calcium [Mass/Vol] 8.4 mg/dL Normal 8.4-10.4 [facility] Comment on above: Performed By: #### L AB17 ####Performance Manager: MARTIN REYES ([phone])[facility] [place] ([facility])[address] Chloride [Moles/Vol] 96 mmol/L Low 98-107 [facility] Comment on above: Performed By: #### L AB17 ####Performance Manager: MARTIN REYES ([phone])[facility] [place] ([facility])[address] [place] [address] [place] CO2 [Moles/Vol] 26 mmol/L Normal 22-30 [facility] Comment on above: Performed By: #### L AB17 ####Performance Manager: MARTIN REYES ([phone])[facility] [place] ([facility])[address] [place] [address] [place] Creatinine [Mass/Vol] 1.22 mg/dL High 0.52-1.04 [facility] Comment on above: Performed By: #### L AB17 ####Performance Manager: MARTIN REYES ([phone])[facility] [place] ([facility])[address] GLOMERULAR FILTRATION RATE ML/MIN/1.73 SQ M.PREDICTED 45.2 mL/min/1.73m*2 Low >60.0 [facility] Comment on above: Result Comment: Calc ulation based on the Chronic Kidney Disease Epidemiology Collaboration (CKD-EPI) equation refit without adjustment for race Performed By: #### L AB17 ####Performance Manager: MARTIN REYES ([phone])[facility] [place] ([facility])[address] Glucose [Mass/Vol] 483 mg/dL Critically high 70-100 [facility] Comment on above: Performed By: #### L AB17 ####Performance Manager: MARTIN REYES ([phone])[facility] ([facility])[address] [place] [address] [place] Potassium [Moles/Vol] 4.0 mmol/L Normal 3.5-5.1 [facility] Comment on above: Performed By: #### L AB17 ####Performance Manager: MARTIN REYES ([phone])[facility] [place] ([facility])[address] [place] [address] [place] Protein [Mass/Vol] 6.6 g/dL Normal 6.3-8.2 [facility] Comment on above: Performed By: #### L AB17 ####Performance Manager: MARTIN REYES ([phone])[facility] [place] ([facility])[address] [place] [address] [place] Sodium [Moles/Vol] 130 mmol/L Low 135-145 [facility] Comment on above: Performed By: #### L AB17 ####Performance Manager: MARTIN REYES ([phone])[facility] ([facility])[address] Urea nitrogen [Mass/Vol] 20 mg/dL High 7-17 [facility] Comment on above: Performed By: #### L AB17 ####Performance Manager: MARTIN REYES ([phone])[facility] (SB[facility])[address] ABDOMEN PELVIS WO IV CONT [...] back pain and burning with urination Normal [facility] CT Abdomen WO contraston Colonic diverticulosis without evidence of acute diverticulitis. Bilateral renal cysts, the largest cyst is on the left measuring up to 4.8 cm. Report Dictated on Electronically Signed By: Jb Ahmadi DO Electronically Signed Date/Time: 02/28/2023 1:44 PM EDT [facility] RADIOLOGY SYSTEM [facility] 1945 [id number] Exam Date/Time: 02/28/2023 13:07 Procedure: CT ABDOMEN [...] 02/28/2023 Patient Name: RAD[facility] 1945 [id number] Exam Date/Time: 02/28/2023 13:07 Procedure: CT ABDOMEN [...] Electronically Signed Date/Time: 02/28/2023 1:44 PM EDT [facility] Radiology Study observation (narrative) [facility] alth CT Abdomen WO contrastOrdere d By: Jb Ahmadi on 02-28-2023 [facility] [employer] Work Phone: Comprehensive metabolic 1998 panelOrdered By: Azucena Li on 02-28-2023 Albumin [Mass/Vol] 3.7 g/dL 3.5 - 5.0 g/dL [facility] ALP [Catalytic activity/Vol] 119 U/L 38 - 126 U/L [facility] ALT [Catalytic activity/Vol] 18 U/L 0 - 34 U/L [facility] Anion gap [Moles/Vol] 8 mmol/L 3 - 13 mmol/L [facility] AST [Catalytic activity/Vol] 24 U/L 15 - 46 U/L [facility] Bilirubin [Mass/Vol] 0.5 mg/dL 0.2 - 1 .3 mg/dL [facility] Calcium [Mass/Vol] 8.4 mg/dL 8.4 - 10. 4 mg/dL [facility] Chloride [Moles/Vol] 96 mmol/L Low 98 - 10 7 mmol/L [facility] CO2 [Moles/Vol] 26 mmol/L 22 - 30 mmol/L [facility] Creatinine [Mass/Vol] 1.22 mg/dL High 0.52 - 1.04 mg/dL [facility] GFR/1.73 sq M.predicted MDRD (S/P/Bld) [Vol rate/Area] 45.2 mL/min/{1.73_m2} Low - PINF [facility] Comment on above: Calculation based on the Chronic Kidney Disease Epidemiology Collaboration (CKD-EPI) equation refit without adjustment for race Glucose [Mass/Vol] 483 mg/dL Critically high 70 - 1 00 mg/dL [facility] Interpretation and review of laboratory results Abnormal [facility] Potassium [Moles/Vol] 4.0 mmol/L 3.5 - 5.1 mmol/L [facility] Protein [Mass/Vol] 6.6 g/dL 6.3 - 8.2 g/dL [facility] Sodium [Moles/Vol] 130 mmol/L Low 135 - 145 mmol/L [facility] Urea nitrogen [Mass/Vol] 20 mg/dL High 7 - 17 mg/dL [facility] ED Nursing Noteon 02-28-2023 ED Nursing Note Pt presents for admission per her PCP. Was sent to get kidneys evaluated per pt. Pt endorses lower back pain and burning and pain with urination. Was recently admitted. Normal [facility] ED Provider Noteon 3 ED Provider Note [facility] 1E MED SURG EMERGENCY DEPARTMENT ENCOUNTER Pt [...] 12/07/2022 Performed by Avery Marshall DO at [facility] ENDOSCOPY EYE SURGERY Bilateral early 90' LUNG [...] shoulder pain ergocalciferol (Vitamin D-2) 1.25 MG (47664 UT) capsule Take 1 capsule (1.25 mg) [...] GHANSHYAM Clark (more content not included)... Normal [facility] POCT glucose meteron 023 Glucose [Mass/Vol] 245 mg/dL High 70 - 100 mg/dL [facility] Interpretation and review of laboratory results Abnormal [facility]formed by: [facility], [address] [place] [id number] CLIA ID: [id number] [facility] Glucose [Mass/Vol] 197 mg/dL High 70 - 100 mg/dL [facility] Interpretation and review of laboratory results Abnormal [facility] Performed by: [facility], [address] [place] [address] CLIA ID: [id number] [facility] URINE CULTUREon 02-28-2023 Bacteria identified Cx [...] Non-susceptible NO = No Interpretation ] Normal [facility] Comment on above: Performed By: #### L [id number] ####Performance Manager: ASHLEY LLANOS ([phone])[facility] ([facility])[address] [place] [address] Urinalysis complete panel (U )on 02-28-2023 Bacteria LM.HPF (Urine sed) [#/Area] Moderate Abnormal Negative /HPF [facility] Bilirubin Ql (U) Negative Negative mg/dL [facility] Clarity (U) Turbid Abnormal Clear [facility] Color (U) Light Yellow Lt. Yellow [facility] Epithelial cells.squamous LM.HPF (Urine sed) [#/Area] 3-5 [facility] Glucose Ql (U) >1,000 Abnormal Normal (<70) mg/dL [facility] Granular casts LM.HPF (Urine sed) [#/Area] 0-2 Abnormal Negative /LPF [facility] Hemoglobin Ql (U) Negative Negative mg/dL [facility] Hyaline casts Auto (Urine sed) [#/Area] 3-5 Abnormal Negative /LPF [facility] Interpretation and review of laboratory results Abnormal [facility] Ketones (U) [Mass/Vol] Negative Negat katherine mg/dL [facility] Leukocyte clumps LM.HPF (Urine sed) [#/Area] Occasional Abnormal Negative /HPF [facility] Leukocyte esterase Test strip Ql (U) 250 Abnormal Negative Sandeep/uL [facility] Mucus LM.HPF (Urine sed) [#/Area] Few Negative /LPF [facility] Nitrite Ql (U) Positive Abnormal Negative [facility] th pH (U) 5.0 [pH] 5.0 - 8.0 pH [facility] Protein (U) [Mass/Vol] 20 mg/dL Abnormal Negative [facility] RBC LM.HPF (Urine sed) [#/Area] 0-2 [facility] Specific gravity (U) [Rel density] 1.020 1.005 - 1.030 [facility] Urobilinogen (U) [Mass/Vol] Normal Normal (0-1) mg/dL [facility] WBC LM.HPF (Urine sed) [#/Area] 11-25 Abnormal [facility] Yeast.budding LM.HPF (Urine sed) [#/Area] Few Abnormal Negative /HPF [facility] 36on 02-27-2023 36 Rx sent Normal [facility] Glucose (Bld) [Mass/Vol]on 0 02-27-2023 Glucose Blood, POC 494 mg/dL [facility] Interpretation and review of laboratory results Abnormal [facility] Office Visiton 02-27-2023 Follow-up visit [id number] Radha Sandoval 1945 F Date Provider Department Center 02/27/2023 [id number] DIA [facility] Family History Problem Relation Age of Onset Mental illness Mother Depression Mother Heart disease Father High Blood Pressure Father Asthma Father Hypertension Father Diabetes Brother Family Status - Relation Status Age at Mother Father Brother Level of Service:48286 [place] OFFICE/OUTPATIENT ESTABLISHED MOD MDM 30-39 MIN Reason for Visit and Comments: Blood Sugar Problem [776310] Knee Pain [436088] Diarrhea [35] - Back Pain [12] Normal [facility] Progress Noteon 02-27-2023 Progress Note No fever or chills, abdomen soft. Unknown etiology. Will check CBC and CMP. Consider stool culture if symptoms continue Normal [facility] Progress Note We will check CMP today Normal [facility] Progress Note UA positive nitrites and leuks moderate blood, will start antibiotic therapy sent for culture Normal [facility] Progress Note Controlled. Continue amlodipine 10 mg daily and lisinopril 40 mg daily Normal [facility] Progress Note Will check TSH today due to recent fatigue Normal [facility] Progress Note Patient has not followed up with wound center upon visualization today wound unchanged, advised to keep area as clean as possible with frequent changes of incontinence pads Normal [facility] Progress Note Uncontrolled. Patien t having difficulties with compliance. Continue insulin regimen. Possible increased glucose due to urinary tract infection we will treat Normal [facility] Progress Note 02/27/2023 Radha Sandoval (: [...] her blood sugar today, noted In office [id number] testing 494. Urination Increased frequency, dysuria intermittently. [...] out soon. Has Maximino (son) work in Osteoplastics. He may be able to help her [...] Lopez MD ergocalciferol (Vitamin D-2) 1.25 MG (80046 UT) capsule Take 1 capsule (1.25 mg) [...] potassium chlor (more content not included)... Normal [facility] Progress Note Please see if she rodriguez s gone to ER. Call and encourage her to go if she hasn't yet. Normal [facility] Progress Note Patient was identifi ed by name and Date of . POCT glucose at 494-provider notified. Normal [facility] Urinalysis macro (dipstick) panel (U)on 02-27-2023 Bilirubin, UA Moderate [facility], [facility]A Small [facility] Glucose, UA >1,000 [facility] Interpretation and review of laboratory results Abnormal [facility] Ketones, UA Trace [facility] Leukocytes, UA Moderate [facility] th Nitrite, UA Positive [facility] pH, UA 6.0 [facility] Protein, UA Trace [facility] Spec Grav, UA 1.010 [facility], [facility].2 [facility] 36on 02-24-2023 36 S: Patient spoke rené h [facility] nurse regarding: Patient needs refill on Novolog. She is out of medication. B: Onset of symptoms/concern: today A: Pt states she needs refill of her Novolog pen, she is out. R: Pt is aware of message to provider for refill. Allergies and pharmacy verified. call center consultant paged. Per YAZMIN Gracia Novolog Flexpen 16 units QID, 30 days, 0 refills. Called to [facility] pharmacy, order pended on chart. Reason for Disposition [1] Prescription refill request for ESSENTIAL medicine (i.e., likelihood of harm to patient if not taken) AND [2] triager unable to refill per department policy Protocols used: Medication Refill and Renewal [id number] [facility] 36 Patient is out of medication. This [...] prior to picking up the medication: Yes [place] [phone] Noted. Agree with disposition. [place] [address] Sent a secure chat edie [employer] she is working on the [employer]. [facility] 36 S: Patient called [facility] clinical access center with complaint of [...] diabetes) Protocols used: Diabetes - High Blood [id number] 02-23-2023 36 faxed [place] [phone] Not quite sure what that was all about but I guess I did which she told me to do instructions were kind of difficult to understand [place] [phone] Re-printing and plac ing on your desk, need to resign next to original signature with the date and then initial next to Faby with the date. [place] [phone] Faxed on 02/17/[address] [facility] 36 S: Patient spoke wit lenore [facility] nurse regarding High Blood Sugar number [...] seen Protocols used: Diabetes - High Blood [id number] [facility] 36 Name of caller: Paula Contact phone number: [phone] Relationship to Patient: [facility] Diabetic Provider: Dr. Lopez Practice: [place] [facility] Chief Complaint/Reason for Call: Paula from [facility] Diabetic states that they did receive Rx for Freestyle Evin, however it was not accepted due to the correction on the sign date. Paula is requesting that we please resend the Rx, have Provider resign it, and have the Drs initial next to the date as well. Rx can be sent to #[phone]. Please advise. Best time of day caller can be reached: Any Patient advised that office/PCP has 24-48 business hours to return their call: No [facility] 36on 02-17-2023 36 Noted. Fax put in burt x to go out [facility] 36 Name of caller: Colette noel Contact phone number: [phone] Relationship to Patient: [facility] Provider: Dr. Lopez Practice: [place] Chief Complaint/Reason for Call: Caller wanted to follow up regarding request for pt diabetic continuous glucose meter that was faxed on 02.02.2023. Caller stated they received the Rx but the Rx was incomplete. Caller would like to ask office to re write with doctors initial and fax again to: [phone]. Please advise. Thank you. Best time of day caller can be reached: Any Patient advised that office/PCP has 24-48 business hours to return their call: Yes [facility] PATINSon 02-15-2023 PATINS Return in [address] Magallanes If you have any questions or concerns, please call our wound center at [phone] or [phone]. Offloading Try to avoid pressure and sheering [...] as diet tolerates, to help improve healing. [facility] 36on 02-14-2023 36 Notified. [facility] 36 Rx sent [place] [address] Spoke with patient s he found the bottle and it is the baclofen [place] [address] The only medications on her list and on her history it would have been used for cramps in her legs would have been her Mirapex and that 1 was just refilled in December for baclofen which is an actual muscle relaxer and that was refilled in December other than those I do not know what she would be talking about [place] [address] S: Patient spoke rené grover [facility] nurse regarding out of medication for [...] policy Protocols used: Medication Refill and Renewal [id number] [facility] Office Visiton 02-07-2023 Follow-up visit [id number] Radha Sandoval 1945 F Date Provider Department Center 02/07/2023 [id number] DIA [facility] Family History Problem Relation Age of Onset Mental illness Mother Depression Mother Heart disease Father High Blood Pressure Father Asthma Father Hypertension Father Diabetes Brother Family Status - Relation Status Age at Mother Father Brother Level of Service:52191 [place] OFFICE/OUTPATIENT ESTABLISHED LOW MDM 20-29 MIN Reason for Visit and Comments: Sore [464964] - On buttocks-getting worse Normal [facility] Progress Noteon 02-07-2023 Progress Note Chronic. Refill mobic. Normal [facility] Progress Note Avoid pressure to ar ea, avoid friction, keep area as dry as possible. Refer to wound clinic. Normal [facility] Progress Note 02/07/2023 Radha Sandoval (: 1945) is a 77 y.o. female , Established patient, here for evaluation of the following chief complaint(s): Sore (On buttocks-getting worse) ASSESSMENT/PLAN: 1. Wound of right buttock, subsequent encounter Assessment & Plan: Avoid pressure to area, avoid friction, keep area as dry as possible. Refer to wound clinic. Orders: - [facility] 2. Chronic left [...] mg) by mouth daily. 12/08/22 Katia Bridenthal, 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[employer] baclofen (Lioresal) 10 MG tablet Take 1 tablet (10 mg) by mouth daily. 01/13/23 Katia Bridenthal, 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[employer] ergocalciferol (Vitamin D-2) 1.25 MG (23139 UT) capsule Take 1 capsule (1.25 mg) [...] used to authenticate this note. Katia Granados, 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JORGE 02/07/2023 12:53 PM [facility] Progress Note Patient was identifi ed by name and Date of . PHARMACY VERIFIED WITH [facility] [place]. [facility] 36on 02-06-2023 36 S: Pt calling [facility] c/o sore on her buttocks. B: [...] splenectomy, organ transplant, chronic steroids) Protocols used: [id number] Normal [facility] SHS Basic metabolic 1998 panelon 12-07-2022 Anion gap [Moles/Vol] 4 mmol/L 3 - 13 mmol/L [facility] Calcium [Mass/Vol] 7.2 mg/dL Low 8.4 - 10. 4 mg/dL [facility] Chloride [Moles/Vol] 110 mmol/L High 98 - 10 7 mmol/L [facility] CO2 [Moles/Vol] 24 mmol/L 22 - 30 mmol/L [facility] Creatinine [Mass/Vol] 0.63 mg/dL 0.52 - 1.04 mg/dL [facility] GFR/1.73 sq M.predicted MDRD (S/P/Bld) [Vol rate/Area] - PINF [facility] Comment on above: Calculation based on the Chronic Kidney Disease Epidemiology Collaboration (CKD-EPI) equation refit without adjustment for race Glucose [Mass/Vol] 182 mg/dL High 70 - 100 mg/dL [facility] Interpretation and review of laboratory results Abnormal [facility] Potassium [Moles/Vol] 3.3 mmol/L Low 3.5 - 5.1 mmol/L [facility] Sodium [Moles/Vol] 137 mmol/L 135 - 145 mmol/L [facility] Urea nitrogen [Mass/Vol] 14 mg/dL 7 - 17 mg/dL [facility] CBC panel Auto (Bld)Ordered By: Wendy Bruce on 12-07-2022 Erythrocyte distribution width (RBC) [Ratio] 13.8 % 11.5 - 14.5 % [facility] Hematocrit (Bld) [Volume fraction] 33.0 % Low 35.0 - 47.0 % [facility] Hemoglobin (Bld) [Mass/Vol] 10.6 g/dL Low 11.7 - 16.0 g/dL [facility] Interpretation and review of laboratory results Abnormal [facility] MCH (RBC) [Entitic mass] 29.3 pg 26.0 - 34.0 pg [facility] MCHC (RBC) [Mass/Vol] 32.2 % 32.0 - 36.0 % [facility] MCV (RBC) [Entitic vol] 90.8 fL 80.0 - 98.0 fL [facility] Platelet mean volume (Bld) [Entitic vol] 8.1 fL 7.4 - 12.4 fL [facility] Platelets (Bld) [#/Vol] 230 10*3/uL 140 - 440 10*3/uL [facility] RBC (Bld) [#/Vol] 3.63 10*6/uL Low 3.8 - 5.20 10*6/uL [facility] WBC (Bld) [#/Vol] 10.7 10*3/uL 3.6 - 10.7 10*3/uL [facility] Comprehensive metabolic 1998 panelon 12-07-2022 Albumin [Mass/Vol] 3.4 g/dL Low 3.5 - 5.0 g/dL [facility] ALP [Catalytic activity/Vol] 96 U/L 38 - 126 U/L [facility] ALT [Catalytic activity/Vol] 15 U/L 0 - 34 U/L [facility] Anion gap [Moles/Vol] 4 mmol/L 3 - 13 mmol/L [facility] AST [Catalytic activity/Vol] 40 U/L 15 - 46 U/L [facility] Bilirubin [Mass/Vol] 0.5 mg/dL 0.2 - 1 .3 mg/dL [facility] Calcium [Mass/Vol] 7.5 mg/dL Low 8.4 - 10. 4 mg/dL [facility] Chloride [Moles/Vol] 105 mmol/L 98 - 10 7 mmol/L [facility] CO2 [Moles/Vol] 27 mmol/L 22 - 30 mmol/L [facility] Creatinine [Mass/Vol] 0.76 mg/dL 0.52 - 1.04 mg/dL [facility] GFR/1.73 sq M.predicted MDRD (S/P/Bld) [Vol rate/Area] 79.8 mL/min/{1.73_m2} - PINF [facility] Comment on above: Calculation based on the Chronic Kidney Disease Epidemiology Collaboration (CKD-EPI) equation refit without adjustment for race Glucose [Mass/Vol] 188 mg/dL High 70 - 100 mg/dL [facility] Interpretation and review of laboratory results Abnormal [facility] Potassium [Moles/Vol] 3.4 mmol/L Low 3.5 - 5.1 mmol/L [facility] Protein [Mass/Vol] 6.2 g/dL Low 6.3 - 8.2 g/dL [facility] Sodium [Moles/Vol] 136 mmol/L 135 - 145 mmol/L [facility] Urea nitrogen [Mass/Vol] 10 mg/dL 7 - 17 mg/dL [facility] Hemoglobin (Bld) [Mass/Vol]O rdered By: Humphrey Juarez on 12-07-2022 Hematocrit (Bld) [Volume fraction] 33.8 % Low 35.0 - 47.0 % [facility] Interpretation and review of laboratory results Abnormal [facility] Hemoglobin (Bld) [Mass/Vol]o n 12-07-2022 Hematocrit (Bld) [Volume fraction] 33.6 % Low 35.0 - 47.0 % [facility] Interpretation and review of laboratory results Abnormal [facility] Hemoglobin (Bld) [Mass/Vol]O rdered By: Rosey Viera on 12-07-2022 Hematocrit (Bld) [Volume fraction] 32.0 % Low 35.0 - 47.0 % [facility] Interpretation and review of laboratory results Abnormal [facility] Laboratory - Chemistry and C hemistry - challengeon 12-07-2022 Magnesium [Mass/Vol] 1.3 mg/dL Low 1.6 - 2 .3 mg/dL [facility] Glucose [Mass/Vol] 179 mg/dL High 70 - 100 mg/dL [facility] Glucose [Mass/Vol] 158 mg/dL High 70 - 100 mg/dL [facility] Glucose [Mass/Vol] 160 mg/dL High 70 - 100 mg/dL [facility] Laboratory - Hematology and Cell countsOrdered By: Humphrey Juarez on 12-07-2022 Hemoglobin (Bld) [Mass/Vol] 10.9 g/dL Low 11.7 - 16.0 g/dL [facility] Laboratory - Hematology and Cell countson 12-07-2022 Hemoglobin (Bld) [Mass/Vol] 11.0 g/dL Low 11.7 - 16.0 g/dL [facility] Laboratory - Hematology and Cell countsOrdered By: Rosey Viera on 12-07-2022 Hemoglobin (Bld) [Mass/Vol] 10.4 g/dL Low 11.7 - 16.0 g/dL [facility] Magnesium [Mass/Vol]on 12-07 Interpretation and review of laboratory results Abnormal [facility] No Panel Informationon 12-07 Interpretation and review of laboratory results Abnormal [facility] Performed by: [facility], [address] [facility] [address] CLIA ID: [id number] [facility] Interpretation and review of laboratory results Abnormal [facility] Performed by: [facility], [address] [place], [facility] [address] CLIA ID: [id number] [facility] Interpretation and review of laboratory results Abnormal [facility] Performed by: [facility], [address] [facility], [facility] [address] CLIA ID: [id number] [facility] Basic metabolic 1998 panelon 12-06-2022 Anion gap [Moles/Vol] 2 mmol/L Low 3 - 13 mmol/L [facility] Calcium [Mass/Vol] 7.9 mg/dL Low 8.4 - 10. 4 mg/dL [facility] Chloride [Moles/Vol] 105 mmol/L 98 - 10 7 mmol/L [facility] CO2 [Moles/Vol] 26 mmol/L 22 - 30 mmol/L [facility] Creatinine [Mass/Vol] 0.68 mg/dL 0.52 - 1.04 mg/dL [facility] GFR/1.73 sq M.predicted MDRD (S/P/Bld) [Vol rate/Area] 88.7 mL/min/{1.73_m2} - PINF [facility] Comment on above: Calculation based on the Chronic Kidney Disease Epidemiology Collaboration (CKD-EPI) equation refit without adjustment for race Glucose [Mass/Vol] 169 mg/dL High 70 - 100 mg/dL [facility] Interpretation and review of laboratory results Abnormal [facility] Potassium [Moles/Vol] 3.5 mmol/L 3.5 - 5.1 mmol/L [facility] Sodium [Moles/Vol] 134 mmol/L Low 135 - 145 mmol/L [facility] Urea nitrogen [Mass/Vol] 18 mg/dL High 7 - 17 mg/dL [facility] CBC panel Auto (Bld)Ordered By: Donavan Hernandez on 12-06-2022 Erythrocyte distribution width (RBC) [Ratio] 13.7 % 11.5 - 14.5 % [facility] Hematocrit (Bld) [Volume fraction] 33.4 % Low 35.0 - 47.0 % [facility] Hemoglobin (Bld) [Mass/Vol] 11.1 g/dL Low 11.7 - 16.0 g/dL [facility] Interpretation and review of laboratory results Abnormal [facility] MCH (RBC) [Entitic mass] 29.7 pg 26.0 - 34.0 pg [facility] MCHC (RBC) [Mass/Vol] 33.2 % 32.0 - 36.0 % [facility] MCV (RBC) [Entitic vol] 89.5 fL 80.0 - 98.0 fL [facility] Platelet mean volume (Bld) [Entitic vol] 8.4 fL 7.4 - 12.4 fL [facility] Platelets (Bld) [#/Vol] 233 10*3/uL 140 - 440 10*3/uL [facility] RBC (Bld) [#/Vol] 3.73 10*6/uL Low 3.8 - 5.20 10*6/uL [facility] WBC (Bld) [#/Vol] 9.8 10*3/uL 3.6 - 10.7 10*3/uL [facility] Hemoglobin (Bld) [Mass/Vol]o n 12-06-2022 Hematocrit (Bld) [Volume fraction] 36.6 % 35.0 - 47.0 % [facility] Interpretation and review of laboratory results Normal [facility] Hematocrit (Bld) [Volume fraction] 34.3 % Low 35.0 - 47.0 % [facility] Interpretation and review of laboratory results Abnormal [facility] Hemoglobin (Bld) [Mass/Vol]O rdered By: Lizeth Mckeon on 12-06-2022 Hematocrit (Bld) [Volume fraction] 33.9 % Low 35.0 - 47.0 % [facility] Interpretation and review of laboratory results Abnormal [facility] Iron and Iron binding capaci ty panelon 12-06-2022 Interpretation and review of laboratory results Normal [facility] Iron [Mass/Vol] 87 ug/dL 37 - 170 ug/dL [facility] Iron binding capacity [Mass/Vol] 298 ug/dL 261 - 497 ug/dL [facility] Iron saturation [Mass fraction] 29 % 15 - 50 % [facility] Laboratory - Chemistry and C hemistry - challengeon 12-06-2022 Glucose [Mass/Vol] 183 mg/dL High 70 - 100 mg/dL [facility] Glucose [Mass/Vol] 258 mg/dL High 70 - 100 mg/dL [facility] Glucose [Mass/Vol] 238 mg/dL High 70 - 100 mg/dL [facility] Glucose [Mass/Vol] 160 mg/dL High 70 - 100 mg/dL [facility] Laboratory - Coagulationon 0 12-06-2022 aPTT Coag (PPP) [Time] 25.4 s 20.0 - 30.5 s [facility] INR Coag (PPP) [Relative time] 1.0 {INR} 0.9 - 1.1 [facility] Comment on above: Recommended Anticoag ulant [...] 11.2 s 9.0 - 1 2.0 s [facility] Laboratory - Hematology and Cell countson 12-06-2022 Hemoglobin (Bld) [Mass/Vol] 12.0 g/dL 11.7 - 16.0 g/dL [facility] Hemoglobin (Bld) [Mass/Vol] 11.3 g/dL Low 11.7 - 16.0 g/dL [facility] Laboratory - Hematology and Cell countsOrdered By: Lizeth Mckeon on 12-06-2022 Hemoglobin (Bld) [Mass/Vol] 11.0 g/dL Low 11.7 - 16.0 g/dL [facility] No Panel Informationon 12-06 Interpretation and review of laboratory results Abnormal [facility] Performed by: [facility], [address] [place] [id number] CLIA ID: [id number] [facility] Interpretation and review of laboratory results Abnormal [facility] Performed by: [facility], [address] [facility] [address] CLIA ID: [id number] [facility] Interpretation and review of laboratory results Abnormal [facility] Performed by: [facility], [address] [facility] [address] CLIA ID: [id number] [facility] Interpretation and review of laboratory results Normal [facility] Interpretation and review of laboratory results Abnormal [facility] Performed by: [facility], [address] [facility] [address] CLIA ID: [id number] [facility] Basic metabolic 1998 panelon 12-05-2022 Anion gap [Moles/Vol] 5 mmol/L 3 - 13 mmol/L [facility] Calcium [Mass/Vol] 8.7 mg/dL 8.4 - 10. 4 mg/dL [facility] Chloride [Moles/Vol] 102 mmol/L 98 - 10 7 mmol/L [facility] CO2 [Moles/Vol] 29 mmol/L 22 - 30 mmol/L [facility] Creatinine [Mass/Vol] 0.91 mg/dL 0.52 - 1.04 mg/dL [facility] GFR/1.73 sq M.predicted MDRD (S/P/Bld) [Vol rate/Area] 64.3 mL/min/{1.73_m2} - PINF [facility] Comment on above: Calculation based on the Chronic Kidney Disease Epidemiology Collaboration (CKD-EPI) equation refit without adjustment for race Glucose [Mass/Vol] 260 mg/dL High 70 - 100 mg/dL [facility] Interpretation and review of laboratory results Abnormal [facility] Potassium [Moles/Vol] 4.0 mmol/L 3.5 - 5.1 mmol/L [facility] Sodium [Moles/Vol] 136 mmol/L 135 - 145 mmol/L [facility] Urea nitrogen [Mass/Vol] 26 mg/dL High 7 - 17 mg/dL [facility] Blood type and Crossmatch pa rodney (Bld)on 12-05-2022 ABO group Nom (Bld) O [facility] Blood group antibody screen GEL Ql Negative [facility] D Ag Ql (RBC) Positive [facility] CBC W Auto Differential pane l (Bld)Ordered By: Clayton Lozano on 12-05-2022 Basophils (Bld) [#/Vol] 0.1 10*3/uL 0.0 - 0.2 10*3/uL [facility] Basophils/100 WBC (Bld) 0.7 % 0.0 - 2.0 % [facility] Eosinophils (Bld) [#/Vol] 0.2 10*3/uL 0.0 - 0.5 10*3/uL [facility] Eosinophils/100 WBC (Bld) 2.0 % 1.0 - 6.0 % [facility] Erythrocyte distribution width (RBC) [Ratio] 13.9 % 11.5 - 14.5 % [facility] Hematocrit (Bld) [Volume fraction] 39.3 % 35.0 - 47.0 % [facility] Hemoglobin (Bld) [Mass/Vol] 12.9 g/dL 11.7 - 16.0 g/dL [facility] Interpretation and review of laboratory results Abnormal [facility] Lymphocytes (Bld) [#/Vol] 1.8 10*3/uL 1.0 - 4.3 10*3/uL [facility] Lymphocytes/100 WBC (Bld) 14.3 % Low 20.0 - 40.0 % [facility] MCH (RBC) [Entitic mass] 29.5 pg 26.0 - 34.0 pg [facility] MCHC (RBC) [Mass/Vol] 32.8 % 32.0 - 36.0 % [facility] MCV (RBC) [Entitic vol] 89.8 fL 80.0 - 98.0 fL [facility] Monocytes (Bld) [#/Vol] 1.0 10*3/uL High 0.0 - 0.8 10*3/uL [facility] Monocytes/100 WBC (Bld) 7.6 % 2.0 - 10.0 % [facility] Neutrophils (Bld) [#/Vol] 9.4 10*3/uL High 1.8 - 7.0 10*3/uL [facility] Neutrophils/100 WBC (Bld) 75.4 % 40.0 - 80.0 % [facility] Nucleated RBC/100 WBC (Bld) [Ratio] 0.1 % [facility] Platelet mean volume (Bld) [Entitic vol] 8.6 fL 7.4 - 12.4 fL [facility] Platelets (Bld) [#/Vol] 271 10*3/uL 140 - 440 10*3/uL [facility] RBC (Bld) [#/Vol] 4.37 10*6/uL 3.8 - 5.20 10*6/uL [facility] WBC (Bld) [#/Vol] 12.5 10*3/uL High 3.6 - 10.7 10*3/uL [facility] CBC panel Auto (Bld)on 12-05 Erythrocyte distribution width (RBC) [Ratio] 13.7 % 11.5 - 14.5 % [facility] Hematocrit (Bld) [Volume fraction] 37.9 % 35.0 - 47.0 % [facility] Hemoglobin (Bld) [Mass/Vol] 12.3 g/dL 11.7 - 16.0 g/dL [facility] Interpretation and review of laboratory results Abnormal [facility] MCH (RBC) [Entitic mass] 29.2 pg 26.0 - 34.0 pg [facility] MCHC (RBC) [Mass/Vol] 32.4 % 32.0 - 36.0 % [facility] MCV (RBC) [Entitic vol] 90.1 fL 80.0 - 98.0 fL [facility] Platelet mean volume (Bld) [Entitic vol] 8.3 fL 7.4 - 12.4 fL [facility] Platelets (Bld) [#/Vol] 244 10*3/uL 140 - 440 10*3/uL [facility] RBC (Bld) [#/Vol] 4.21 10*6/uL 3.8 - 5.20 10*6/uL [facility] WBC (Bld) [#/Vol] 11.6 10*3/uL High 3.6 - 10.7 10*3/uL [facility] CT Abdomen and Pelvis W cont [...] only. [facility] Reece Chandra MD - 12/05/2022 Patient Name: RADHA SANDOVAL : 1945 [facility]#: [id number] Exam Date/Time: 12/05/2022 15:39 Procedure: CT ABDOMEN [...] Electronically Signed Date/Time: 12/05/2022 3:55 PM EDT [facility] Radiology Study observation (narrative) [facility] alth CT Abdomen and Pelvis W cont rast IVOrdered By: Reece Chandra on 12-05-2022 [facility] [employer] Work Phone: Hemoglobin (Bld) [Mass/Vol]o n 12-05-2022 Interpretation and review of laboratory results Normal [facility] Hepatic function 2000 panelo n 12-05-2022 Albumin [Mass/Vol] 4.0 g/dL 3.5 - 5.0 g/dL [facility] ALP [Catalytic activity/Vol] 107 U/L 38 - 126 U/L [facility] ALT [Catalytic activity/Vol] 16 U/L 0 - 34 U/L [facility] AST [Catalytic activity/Vol] 25 U/L 15 - 46 U/L [facility] Bilirubin [Mass/Vol] 0.9 mg/dL 0.2 - 1 .3 mg/dL [facility] Bilirubin.conjugated [Mass/Vol] 0.0 mg/dL 0.0 - 0.3 mg/dL [facility] Protein [Mass/Vol] 7.2 g/dL 6.3 - 8.2 g/dL [facility] Laboratory - Chemistry and C hemistry - challengeon 12-05-2022 Glucose [Mass/Vol] 196 mg/dL High 70 - 100 mg/dL [facility] Glucose [Mass/Vol] 215 mg/dL High 70 - 100 mg/dL [facility] Lipase [Catalytic activity/Vol] 43 U/L 23 - 300 U/L [facility] - Coagulationon 0 12-05-2022 aPTT Coag (PPP) [Time] 22.1 s 20.0 - 30.5 s [facility] INR Coag (PPP) [Relative time] 1.0 {INR} 0.9 - 1.1 [facility] Comment on above: Recommended Anticoag ulant Therapy: [...] 11.0 s 9.0 - 1 2.0 s [facility] Laboratory - Hematology and Cell countson 12-05-2022 Hemoglobin (Bld) [Mass/Vol] 12.2 g/dL 11.7 - 16.0 g/dL [facility] No Panel Informationon 12-05 Interpretation and review of laboratory results Abnormal [facility] Performed by: [facility], [address] [place] [address] CLIA ID: [id number] [facility] Interpretation and review of laboratory results Normal [facility] Interpretation and review of laboratory results Abnormal [facility] Performed by: [facility], [address] [place] [id number] CLIA ID: [id number] [facility] Interpretation and review of laboratory results Normal [facility] XR CHEST (2 VW)on 09-09-2021 Patient Name: RADHA SANDOVAL [facility]#: [id number] Diagnostic Radiology ACCESSION EXAM DATE/TIME PROCEDURE ORDERING PROVIDER [id number] 09/09/2021 10:10 EDT CR Chest PA & LAT MD JOHN, SHIV AGRAWAL CPT code 52249 Reason For Exam (CR Chest PA & [...] ROBERT Transcribed Date and Time: 09/09/2021 3:49 [facility] Vera [place] - 09/09/2021 Patient Name: RADHA SANDOVAL Diagnostic Radiology ACCESSION EXAM DATE/TIME PROCEDURE ORDERING PROVIDER [id number] 09/09/2021 10:10 EDT CR Chest PA & LAT MD JOHN, SHIV AGRAWAL CPT code 99113 Reason For Exam (CR Chest PA & [...] Ultrasound ACCESSION EXAM DATE/TIME PROCEDURE ORDERING PROVIDER [id number] 08/25/2021 10:09 EST VL PVR Arterial Doppler [id number] -SOMMER CHATTERJEE Lwr w/o Exercise CPT code 19272 Reason For Exam ( PVR Arterial Doppler Lwr w/o Exercise) PVD with ulcer of left leg Report [facility] -- Multilevel Lower Extremity Arterial Evaluation Report Patient Radha Sandoval : 1945 Study 08/25/2021 Name: Eduardo (75yrs) Date: Age: 75 Account: [id number] Gender: F Loc: BP: Ordering Physician: Sommer Chatterjee Leveler Helper: Clayton Lr RVT Interpreting Physician: Wicho Morales MD -- Location: [facility] -- Indications: PVD with ulcer. -- Conclusions [...] supine position. Images were obtained using a [employer] vascular ultrasound machine. -- Arterial pressure indices: [...] WICHO MORALES Cardiovascular ACCESSION EXAM DATE/TIME PROCEDURE [id number] 08/25/2021 10:09 EST VL PVR Arterial Doppler Lwr w/o Exercise CPT code 19624 Reason For Exam (VL PVR Arterial Doppler Lwr w/o Exercise) PVD with ulcer of left leg Report [facility] -- Multilevel Lower Extremity Arterial Evaluation Report Patient Radha Sandoval : 1945 Study 08/25/2021 Name: Eduardo (75yrs) Date: Age: 75 Account: [id number] Gender: F Loc: BP: Cardiovascular Report Ordering Physician: Sommer Chatterjee Leveler Helper: Clayton Lr RVT Interpreting Physician: Wicho Morales MD -- Location: [facility] -- Indications: PVD with ulcer. -- Conclusions [...] PVR wave (more content not included)... Normal [facility] CULT/STAIN - AEROBIC AND KENNA EROBICon [...] <= 2 S Amoxicillin/Clavulanic Acid(LAVINIA) R Normal [facility] Comment on above: Performed By: #### C CARINA #### [address] [id number] [id number] Culture, Anaerobic and Aerob icon 08-07-2021 Aerobic [...] cells/lpf. Rare gram positive cocci in clusters. [facility] Interpretation and review of laboratory results Abnormal [facility] Test Performed by [id number] [place] [address] [facility] CR Chest PA/LATon 04-22-2021 CR Chest PA/LAT Patient Name: RADHA SANDOVAL Diagnostic Radiology ACCESSION EXAM DATE/TIME PROCEDURE ORDERING PROVIDER [id number] 04/22/2021 11:32 EDT CR Chest PA and LAT MD JOHN, SHIV AGRAWAL CPT code 18746 Reason For Exam (CR Chest PA and [...] Transcribed Date and Time: 04/22/2021 11:47 Normal [facility] MG Breast Tomosynthesis Scr Blon 04-22-2021 MG Breast Tomosynthesis Scr Bl Patient Name: RADHA SANDOVAL Mammography ACCESSION EXAM DATE/TIME PROCEDURE ORDERING PROVIDER [id number] 04/22/2021 11:11 EDT MG Breast Tomosynthesis MD JOHN, SHIV BI Scr TANJA CPT code 37823 00885 Reason For Exam (MG Breast Tomosynthesis BI [...] images: BB's = Nipples; skin lesions Open [place] = Palpable Line = Scar 2D digital [...] patient at elevated risk based on the Simth Syndrome criteria? No - If yes, consider genetic counseling and testing with high risk follow up. Final Signed Date and Time: 04/22/2021 11:29 am Signed by: MD HELTON YUN ROBERT [facility] OT Bone Density DEXA Axial S haylie 04-22-2021 OT Bone Density DEXA Axial Skeleton [facility]: [id number] Density ACCESSION EXAM DATE/TIME PROCEDURE ORDERING PROVIDER [id number] 04/22/2021 10:45 EDT OT Bone Density DEXA MD JOHN, SHIV Axial Skeleton TANJA CPT code 93278 Reason For Exam (OT Bone Density DEXA Axial Skeleton) menopause Report DXA BONE DENSITOMETRY: CLINICAL INDICATION: Asymptomatic post-menopausal status COMPARISON: None TECHNIQUE: Quantitative bone mineral densitometry of the hip and lumbar spine was performed with a dual energy x-ray observed absorptiometry device - [employer] W. Regions of interest were obtained [...] recommendations for prevention of bone loss include: 5161-9173 mg calcium intake per day for adults [...] and Follow-up. Christa of [employer] Evidence-Based Summaries. [facility] [employer]. 2017 Bone Density Report Report Dictated on Final Dictating Physician: MD DELVALLE LAUREN B Signed Date and Time: 04/23/2021 8:00 am Signed by: MD DELVALLE LAUREN B Transcribed Date and Time: 04/23/2021 8:01 Normal [facility] ECHO Complete 2D W Doppler W ColorOrdered By: Shiv Lopez on 10-07-2020 TRANSTHORACIC ECHOCARDIOGRAM PATIENT: Radha Sandoval STUDY DATE: 10/07/2020 : 1945 AGE: 75 HT/WT: 170.2 cm (67 117.9 kg in) (259.4 lb) GENDER: F BP: 144 / 89 LOCATION: [facility] PATIENT [facility] STATUS: *ORDERING PHYSICIAN: * Shiv Lopez *READING PHYSICIAN: * Stuart Grier, *CERTIFIED WELLNESS PROGRAM MANAGER: * Lizzette Dejesus MD RDCS, AE [...] LV ID, ES (more content not included)... [employer] Work Phone: [facility]one, [email or web address] Incoming Cardiology Results From [employer] - 10/07/2020 3:44 PM EDT TRANSTHORACIC ECHOCARDIOGRAM PATIENT: Radha Sandoval STUDY DATE: 10/07/2020 : 1945 AGE: 75 HT/WT: 170.2 cm (67 117.9 kg in) (259.4 lb) GENDER: F BP: 144 / 89 LOCATION: [facility] PATIENT [facility]patient [facility] STATUS: *ORDERING PHYSICIAN: * Shiv Lopez *READING PHYSICIAN: * Stuart Grier, *CERTIFIED WELLNESS PROGRAM MANAGER: * Lizzette Dejesus MD RDCS, AE [...] Ultrasound ACCESSION EXAM DATE/TIME PROCEDURE ORDERING PROVIDER [id number] 10/07/2020 14:50 EDT Echo Complete w/wo MD JOHN, SHIV AGRAWAL Reason For Exam (Echo Complete w/wo Contrast) edema Report TRANSTHORACIC ECHOCARDIOGRAM PATIENT: Radha Sandoval STUDY DATE: 10/07/2020 : 1945 AGE: 75 HT/WT: 170.2 cm (67 117.9 kg in) (259.4 lb) GENDER: F BP: 144 / 89 LOCATION: [facility] PATIENT [facility]patient [facility] STATUS: *ORDERING PHYSICIAN: * Shiv Lopez *READING PHYSICIAN: * Stuart Grier, *CERTIFIED WELLNESS PROGRAM MANAGER: * Lizzette Dejesus MD RDCS, AE [...] ED 0.31 (more content not included)... Normal [facility] Basic Metabolic Panelon 01-17 Anion gap [Moles/Vol] 10 mmol/L [facility], [place] Calcium [Mass/Vol] 8.7 mg/dL 8.4 - 10. 4 mg/dL [facility], [place] Chloride [Moles/Vol] 101 mmol/L 98 - 10 7 mmol/L [place], [place] CO2 [Moles/Vol] 27 mmol/L 22 - 30 mmol/L [place] Creatinine [Mass/Vol] 1.13 mg/dL 0.52 - 1.25 mg/dL [place] EGFR IF NonAfrican Ethiopian 46.9 mL/min >60 [place] Comment on above: Source- MDRD equatio n with creatinine calibration to IDMS(NKDEP) eGFR not recommended for drug dose adjustment GFR/1.73 sq M predicted among blacks MDRD (S/P/Bld) [Vol rate/Area] 56.8 mL/min/{1.73_m2} >60 [place] Glucose [Mass/Vol] 139 mg/dL High 70 - 100 mg/dL [place] Interpretation and review of laboratory results Abnormal [place] Potassium [Moles/Vol] 4.3 mmol/L 3.5 - 5.1 mmol/L [place] Sodium [Moles/Vol] 137 mmol/L 135 - 145 mmol/L [place] Urea nitrogen [Mass/Vol] 18 mg/dL 7 - 20 mg/dL [place] CBCon 02-01-2019 Erythrocyte distribution width (RBC) [Ratio] 13.4 % 11.5 - 14.5 % [place] Hematocrit (Bld) [Volume fraction] 35.1 % 35 - 47 % [place] Hemoglobin (Bld) [Mass/Vol] 11.8 g/dL 11.7 - 16 g/dL [place] MCH (RBC) [Entitic mass] 30.2 pg 26 - 34 pg [place] MCHC (RBC) [Mass/Vol] 33.8 % 32 - 36 % [place] MCV (RBC) [Entitic vol] 89.4 fL 79 - 98 fL [place] Platelet mean volume (Bld) [Entitic vol] 7.6 fL 7.4 - 10.4 fL [place] Platelets (Bld) [#/Vol] 419 10*3/uL 140 - 440 10*3/uL [place] RBC (Bld) [#/Vol] 3.92 10*6/uL 3.8 - 5.2 10*6/uL [place] WBC (Bld) [#/Vol] 9.4 10*3/uL 3.6 - 10.7 10*3/uL [place] CT CERVICAL SPINE WO LAURA Ton 02-01-2019 [facility], [facility] Incoming Radiology Results From [facility] - 02/01/2019 7:24 PM EDT Patient Name: RADHA SANDOVAL ---CT--- Exam Date/Time 02/01/2019 18:57:[address] Spine Cervical w/o Contrast Ordering Physician MD CR, [facility] Accession Number [id number] CPT4 Codes 23176 () Reason For Exam NECK PAIN FOLLOWING [...] NELSON Transcribed Date and Time: 02/01/2019 7:12 [place] Patient Name: RADHA SANDOVAL ---CT--- Exam Date/Time 02/01/2019 18:57:[address] Spine Cervical w/o Contrast Ordering Physician MD HANKINS ALEKSANDAR Accession Number [id number] CPT4 Codes 73317 () Reason For Exam NECK PAIN FOLLOWING [...] NELSON Transcribed Date and Time: 02/01/2019 7:12 [place] CT HEAD WO CONTRASTon 2018 [facility], [facility] Incoming Radiology Results From [facility] - 02/01/2019 7:40 PM EDT Patient Name: RADHA SANDOVAL ---CT--- Exam Date/Time 02/01/2019 18:57:[address] Head or Brain w/o Contrast Ordering Physician MD HANKINS ALEKSANDAR Accession Number [id number] CPT4 Codes 55532 () Reason For Exam HEAD INJURY MILD [...] R Transcribed Date and Time: 02/01/2019 7:35 [place] Patient Name: RADHA SANDOVAL ---CT--- Exam Date/Time 02/01/2019 18:57:[address] Head or Brain w/o Contrast Ordering Physician MD HANKINS ALEKSANDAR Accession Number [id number] CPT4 Codes 57977 () Reason For Exam HEAD INJURY MILD [...] R Transcribed Date and Time: 02/01/2019 7:35 [place] Ethanolon 02-01-2019 Ethanol Lvl <0.010 0 - 0.01 g/dL [place] Comment on above: NOTE: This result is for medical treatment only. Analysis performed using non-forensic procedures. Otheron 02-01-2019 Test Performed by [address] [address] [place] Protime/INR & PTTon 02-02-20 19 aPTT Coag (Bld) [Time] 23.9 s 20 - 30.5 s [place] Comment on above: NOTE: The therapeuti c time for Heparin anticoagulation, based on Xa activity inhibition, is an APTT of 46-80 seconds. INR Coag (PPP) [Relative time] 0.9 {INR} [place] Comment on above: Recommended Anticoag ulant [...] [Time] 9.9 s 9 - 12 s [place], [place] Comment on above: . TYPE AND SCREENon 02-01-2019 Sodium [Moles/Vol] Positive [place] Comment on above: Test Performed by [facility], [address] [place] [address] Sodium [Moles/Vol] O [place] Sodium [Moles/Vol] Negative [place] Comment on above: Test Performed by [facility], [address] [place] [address] XR CHEST PORTABLEon 02-02-20 [facility], [facility] Incoming Radiology Results From [facility] - 02/01/2019 7:15 PM EDT Patient Name: RADHA SANDOVAL ---Diagnostic Radiology--- Exam Date/Time 02/01/2019 19:11:56 EDT Exam CR Chest Portable Ordering Physician MD HANKINS ALEKSANDAR Accession Number [id number] CPT4 Codes 30177 () Reason For Exam TRAUMA, FALL Report [...] R Transcribed Date and Time: 02/01/2019 7:13 [place] Patient Name: RADHA SANDOVAL ---Diagnostic Radiology--- Exam Date/Time 02/01/2019 19:11:56 EDT Exam CR Chest Portable Ordering Physician MD HANKINS ALEKSANDAR Accession Number [id number] CPT4 Codes 05487 () Reason For Exam TRAUMA, FALL Report [...] R Transcribed Date and Time: 02/01/2019 7:13 [place] XR PELVIS (1-2 VW)on 019 Patient Name: RADHA SANDOVAL ---Diagnostic Radiology--- Exam Date/Time 02/01/2019 19:11:56 EDT Exam CR Pelvis 1 or 2 Views Ordering Physician MD HANKINS ALEKSANDAR Accession Number [id number] CPT4 Codes 75839 () Reason For Exam TRAUMA, FALL Report [...] R Transcribed Date and Time: 02/01/2019 7:12 [place] [facility], [facility] Incoming Radiology Results From [facility] - 02/01/2019 7:14 PM EDT Patient Name: RADHA SANDOVAL ---Diagnostic Radiology--- Exam Date/Time 02/01/2019 19:11:56 EDT Exam CR Pelvis 1 or 2 Views Ordering Physician MD HANKINS ALEKSANDAR Accession Number [id number] CPT4 Codes 95459 () Reason For Exam TRAUMA, FALL Report [...] R Transcribed Date and Time: 02/01/2019 7:12 [place] Vital Signs Date Time Vital Sign Value Performing Clinician Faci lity 03-18-2023 11:02-0400 Body temperature 98.7 [degF] [facility] 03-18-2023 11:02-0400 Diastolic blood pressure 50 mm[Hg] [facility] 03-18-2023 11:02-0400 Heart rate 74 /min [facility] 03-18-2023 11:02-0400 Respiratory rate 18 /min [facility] 03-18-2023 11:02-0400 SaO2% (BldA) [Mass fraction] 96 % [facility] 03-18-2023 11:02-0400 Systolic blood pressure 142 mm[Hg] [facility] 03-15-2023 14:20-0400 Body height 170.18 cm [facility] 03-15-2023 14:20-0400 Body weight 113.21 kg [facility] 03-14-2023 09:34-0400 Body mass index (BMI) [Ratio] 39.1 kg/m2 [facility] 03-03-2023 07:40-0400 Body temperature 98.1 [degF] Tasneem Whaley MD Work Phone: [facility] 03-03-2023 07:40-0400 Diastolic blood pressure 81 mm[Hg] Tasneem Whaley MD Work Phone: [facility] 03-03-2023 07:40-0400 Heart rate 93 /min Tasneem Whaley MD Work Phone: [facility] 03-03-2023 07:40-0400 Respiratory rate 16 /min Tasneem Whaley MD Work Phone: [facility] 03-03-2023 07:40-0400 SaO2% (BldA) [Mass fraction] 94 % Tasneem Whaley MD Work Phone: [facility] 03-03-2023 07:40-0400 Systolic blood pressure 154 mm[Hg] Tasneem Whaley MD Work Phone: [facility] 02-27-2023 14:44-0400 Body mass index (BMI) [Ratio] 36.65 kg/m2 Katia Bridenthal 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[employer] Work Phone: [employer] 02-27-2023 14:44-0400 Body temperature 99.1 [degF] Katia Bridenthal 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[employer] Work Phone: [facility] 02-27-2023 14:44-0400 Body weight 106.14 kg Katia Bridenthal 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[employer] Work Phone: [facility] 02-27-2023 14:44-0400 Diastolic blood pressure 72 mm[Hg] Katia Bridenthal 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[employer] Work Phone: [facility] 02-27-2023 14:44-0400 Heart rate 93 /min Katia Bridenthal 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[employer] Work Phone: [facility] 02-27-2023 14:44-0400 Respiratory rate 20 /min Katia Bridenthal 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[employer] Work Phone: [facility] 02-27-2023 14:44-0400 SaO2% (BldA) [Mass fraction] 92 % Katia Bridenthal 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[employer] Work Phone: [facility] 02-27-2023 14:44-0400 Systolic blood pressure 136 mm[Hg] Katia Bridenthal 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[employer] Work Phone: [facility] 02-15-2023 13:07-0400 Body height 170.2 cm Lenard Magallanes DO Work Phone: [facility] 02-15-2023 13:07-0400 Body mass index (BMI) [Ratio] 35.71 kg/m2 Lenard Magallanes DO Work Phone: [facility] 02-15-2023 13:07-0400 Body temperature 98.6 [degF] Lenard Magallanes DO Work Phone: [facility] 02-15-2023 13:07-0400 Body weight 103.42 kg Lenard Magallanes DO Work Phone: [facility] 02-15-2023 13:07-0400 Diastolic blood pressure 76 mm[Hg] Lenard Magallanes DO Work Phone: [facility] 02-15-2023 13:07-0400 Heart rate 75 /min Lenard Magallanes DO Work Phone: [facility] 02-15-2023 13:07-0400 Respiratory rate 20 /min Lenard Magallanes DO Work Phone: [facility] 02-15-2023 13:07-0400 Systolic blood pressure 141 mm[Hg] Lenard Magallanes DO Work Phone: [facility] 02-07-2023 11:18-0400 Diastolic blood pressure 72 mm[Hg] Katia Bridenthal 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[employer] Work Phone: [facility] 02-07-2023 11:18-0400 Systolic blood pressure 146 mm[Hg] Katia Bridenthal 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[employer] Work Phone: [facility] 02-07-2023 10:39-0400 Body mass index (BMI) [Ratio] 40.34 kg/m2 Katia Bridenthal 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[employer] Work Phone: [facility] 02-07-2023 10:39-0400 Body temperature 97.3 [degF] Katia Bridenthal 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[employer] Work Phone: [facility] 02-07-2023 10:39-0400 Body weight 109.95 kg Katia Bridenthal 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[employer] Work Phone: [facility] 02-07-2023 10:39-0400 Heart rate 88 /min Katia Bridenthal 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[employer] Work Phone: [facility] 02-07-2023 10:39-0400 Respiratory rate 20 /min Katiaesther rGanados 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[employer] Work Phone: [facility] 02-07-2023 10:39-0400 SaO2% (BldA) [Mass fraction] 96 % Katia Bridenthal 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[employer] Work Phone: [facility] 12-07-2022 10:03-0400 Diastolic blood pressure 80 mm[Hg] Anusha Velarde MD Work Phone: [facility] 12-07-2022 10:03-0400 Heart rate 72 /min Anusha Velarde MD Work Phone: [facility] 12-07-2022 10:03-0400 Respiratory rate 18 /min Anusha Velarde MD Work Phone: [facility] 12-07-2022 10:03-0400 SaO2% (BldA) [Mass fraction] 96 % Anusha Velarde MD Work Phone: [facility] 12-07-2022 10:03-0400 Systolic blood pressure 162 mm[Hg] Anusha Velarde MD Work Phone: [facility] 12-07-2022 09:50-0400 Body temperature 97.2 [degF] Anusha Velarde MD Work Phone: [facility] 12-07-2022 08:49-0400 Body height 165.1 cm Anusha Velarde MD Work Phone: [facility] 12-07-2022 08:49-0400 Body mass index (BMI) [Ratio] 41.6 kg/m2 Anusha Velarde MD Work Phone: [facility] 12-07-2022 08:49-0400 Body weight 113.4 kg Anusha Velarde MD Work Phone: [facility] 06-30-2022 08:47-0500 Diastolic blood pressure 62 mm[Hg] Shiv Lopez MD Work Phone: [facility] 06-30-2022 08:47-0500 Heart rate 80 /min Shiv Lopez MD Work Phone: [facility] 06-30-2022 08:47-0500 Systolic blood pressure 125 mm[Hg] Shiv Lopez MD Work Phone: [facility] 06-30-2022 08:16-0500 Body height 165.7 cm Shiv Lopez MD Work Phone: [facility] 06-30-2022 08:16-0500 Body mass index (BMI) [Ratio] 39.96 kg/m2 Shiv Lopez MD Work Phone: [facility] 06-30-2022 08:16-0500 Body weight 109.77 kg Shiv Lopez MD Work Phone: [facility] Encounters Encounter Date Encounter Type Care Provider Facility Start: 04-24-2025 ambulatory [facility] Facility:[facility] Start: 04-22-2025 ambulatory Melissa Gukasia OLS Facili ty:[facility] Start: 04-10-2025 ambulatory Melissa Gudla OLS Facili ty:[facility] Start: 04-08-2025 ambulatory Dong Schwartz OLS Facil ity:[facility] Start: 04-03-2025 ambulatory Dong Schwartz OLS Facil ity:[facility] Start: 03-26-2025 End: 03-26-2025 ambulatory Melissa Gudla OLS Facility:[facility] Start: 03-20-[address] Melissa Reed MD -[facility] Work Phone: Start: 03-20-2025 End: 03-20-2025 ambulatory Melissa Gudla OLS Facility:[facility] Start: 03-14-[address] [facility] Work Phone: Start: 03-14-2025 End: 03-14-2025 ambulatory Melissa Avela OLS Facility:[facility] Start: 03-10-[address] [facility] Work Phone: Start: 03-10-2025 End: 03-10-2025 ambulatory Melissa Gukasia OLS Facility:[facility] Start: 03-06-[address] Melissa Reed MD -[facility] Work Phone: Start: 03-06-2025 End: 03-06-2025 ambulatory Melissa Gudla Facility:[facility] Start: 02-20-[address] Melissa Reed MD -[facility] Work Phone: Start: 02-20-2025 End: 02-20-2025 ambulatory Melissa Gudla Facility:[facility] Start: 02-06-2025 ambulatory Melissa Gudla OLS Facili ty:[facility] Start: 02-06-[address] Melissa Reed MD -[facility] Work Phone: Start: 01-23-2025 ambulatory Melissa Genedla OLS Facili ty:[facility] Start: 01-23-[address] Melissa Reed MD -[facility] Work Phone: Start: 01-09-[address] Melissa Reed MD -[facility] Work Phone: Start: 01-09-2025 End: 01-09-2025 ambulatory Melissa Gudla Facility:[facility] Start: 12-26-2024 ambulatory Melissa Gudla Facility:[facility] Start: 12-26-[address] Melissa Reed MD -[facility] Work Phone: Start: 12-24-2024 ambulatory Melissa Gudla Facility:[facility] Start: 12-24-[address] Melissa Reed MD -[facility] Work Phone: Start: 12-17-2024 Non-patient / Non-visit Dr. Princess stafford MD [facility] Work Phone: Start: 12-12-2024 End: 12-12-[address] Melissa Reed MD -[facility] Start: 12-12-2024 End: 12-12-[address] Melissa Reed MD -[facility] Work Phone: Start: 12-12-2024 End: 12-12-2024 ambulatory [facility] Facility:[facility] Start: 11-28-2024 End: 11-28-[address] Melissa Reed MD [facility] Work Phone: Start: 11-28-2024 End: 11-28-[address] Melissa Reed MD -[facility] Work Phone: Start: 11-28-[address] Melissa Reed MD -[facility] Work Phone: Start: 11-28-2024 End: 11-28-2024 ambulatory [facility] Facility:[facility] Start: 11-14-[address] Melissa Reed MD -[facility] Work Phone: Start: 11-14-2024 End: 11-14-2024 ambulatory Melissabridgette Vallecillo Facility:[facility] Start: 11-08-2024 End: 11-08-2024 ambulatory Dr. Melissa Reed MD [facility] Work Phone: Start: 11-08-2024 End: 11-08-[address] Melissa Reed MD -[facility] Work Phone: Start: 11-08-2024 End: 11-08-2024 [facility] Start: 10-17-2024 End: 10-17-[address] Melissa Reed MD -[facility] Work Phone: Start: 10-17-2024 End: 10-17-2024 [facility]ulatory [facility] Start: 10-03-2024 End: 10-03-[address] Shiv Lopez MD Work Phone: [facility] Work Phone: Start: 10-03-2024 End: 10-03-[address] Melissa Reed MD -[facility] Work Phone: Start: 10-03-2024 End: 10-03-2024 [facility]ulatory [facility] Start: 09-23-2024 [facility]ulatory [facility] Start: 09-23-[address] Melissa Reed MD -[facility] Work Phone: Start: 09-19-2024 End: 09-19-[address] Shiv Lopez MD Work Phone: [facility] Work Phone: Start: 09-19-2024 End: 09-19-[address] Melissa Reed MD -[facility] Work Phone: Start: 09-19-[address] Melissa Reed MD -[facility] Work Phone: Start: 09-19-2024 End: 09-19-2024 [facility] Start: 09-05-2024 End: 09-05-[address] Shiv Lopez MD Work Phone: [facility] Work Phone: Start: 09-05-2024 End: 09-05-[address] Melissa Reed MD -[facility] Work Phone: Start: 09-05-[address] Melissa Reed MD -[facility] Work Phone: Start: 09-05-2024 End: 09-05-2024 ambulatory [facility] Facility:[facility] Start: 08-22-2024 End: 08-22-[address] Shiv Lopez MD Work Phone: [facility] Work Phone: Start: 08-22-2024 End: 08-22-[address] Melissa Reed MD -[facility] Work Phone: Start: 08-22-2024 End: 08-22-2024 ambulatory [facility] Facility:[facility] Start: 08-08-2024 ambulatory [facility] Facility:[facility] Start: 08-08-[address] Melissa Reed MD -[facility] Start: 08-06-2024 ambulatory [facility] Facility:[facility] Start: 08-06-[address] Melissa Reed MD -[facility] Work Phone: Start: 07-31-2024 End: 07-31-[address] Gypsy Argueta MD -Radiology, [facility] Work Phone: Start: 07-31-2024 End: 07-31-2024 ambulatory [facility] Facility:[facility] Start: 07-25-2024 ambulatory Shiv John Facility :[facility] Start: 07-25-[address] Meilssa Reed MD -[facility] Work Phone: Start: 07-11-2024 ambulatory [facility] Facility :[facility] Start: 07-11-[address] Melissa Reed MD -[facility] Work Phone: Start: 06-27-2024 End: 06-27-[address] Melissa Reed MD -[facility] Work Phone: Start: 06-27-2024 End: 06-27-2024 [facility] Start: 06-13-2024 ambulatory [facility] Facility :[facility] Start: 06-13-[address] Melissa Reed MD -[facility] Work Phone: Start: 05-29-2024 End: 05-29-[address] Melissa Reed MD -[facility] Work Phone: Start: 05-29-2024 End: 05-29-2024 ambulatory [facility] Facility:[facility] Start: 05-15-2024 End: 05-15-2024 ambulatory [facility] Facility:[facility] Start: 05-01-2024 End: 05-01-2024 ambulatory [facility] Facility:[facility] Start: 12-29-2023 End: 12-29-2023 ambulatory Feliciatorri Garcia [facility] Start: 09-29-2023 End: 09-29-2023 ambulatory [facility] Work Phone: Start: 09-29-2023 End: 09-29-2023 Departed Referred [facility] Work Phone: Start: 09-14-2023 End: 09-14-2023 ambulatory [facility] Work Phone: Start: 09-14-2023 End: 09-14-2023 Departed Referred [facility] Work Phone: Start: 08-31-2023 End: 08-31-2023 ambulatory [facility] Work Phone: Start: 08-31-2023 End: 08-31-2023 Departed Referred [facility] Work Phone: Start: 08-17-2023 End: 08-17-2023 ambulatory [facility] Work Phone: Start: 08-17-2023 End: 08-17-2023 Departed [facility]erred [facility] Work Phone: Start: 08-14-2023 End: 08-14-2023 Departed [facility] Work Phone: Start: 07-31-2023 End: 07-31-2023 Departed [facility]erred [facility] Work Phone: Start: 07-17-2023 End: 07-17-2023 Departed [facility] Work Phone: Start: 07-03-2023 End: 07-03-2023 Departed [facility]erred [facility] Work Phone: Start: 07-03-2023 Registered Referred [facility] Work Phone: Start: 06-23-2023 End: 06-23-2023 ambulatory [facility] Work Phone: Start: 06-23-2023 End: 06-23-2023 Departed Referred [facility] Start: 06-20-2023 End: 06-20-2023 ambulatory [facility] Work Phone: Start: 06-20-2023 End: 06-20-2023 Departed [facility]erred [facility] Work Phone: Start: 06-20-2023 Registered Referred [facility] Work Phone: Start: 05-10-2023 End: 05-10-2023 ambulatory [facility] Work Phone: Start: 05-10-2023 End: 05-10-2023 Departed Referred [facility] Start: 05-10-2023 Registered Referred [facility] Start: 05-01-2023 End: 05-01-2023 ambulatory [facility] Work Phone: Start: 05-01-2023 End: 05-01-2023 Departed Referred [facility] Start: 04-04-2023 End: 04-04-2023 ambulatory [facility] Work Phone: Start: 04-04-2023 End: 04-04-2023 Departed Referred [facility] Start: 03-20-2023 End: 03-20-2023 Departed Referred [facility] Start: 03-03-2023 End: 03-18-2023 Evaluation and management of inpatient [facility] Start: 02-28-2023 End: 03-03-2023 ambulatory Imelda Mann RN [facility] Clinical Communication Start: 02-28-2023 Patient encounter procedure [facility] Start: 02-28-2023 End: 03-03-2023 Emergency department patient visit Tasneem Whaley MD Work Phone: [facility] Comment on above: LING (acute kidney in jury) (CMS/HCC) (HCC) (Primary Dx); Pyelonephritis; Polypharmacy; Insomnia, unspecified type; Pressure ulcer of right buttock, stage 3 (HCC) Start: 02-27-2023 End: 02-27-2023 ambulatory [facility] Start: 02-27-2023 End: 02-27-2023 Office outpatient visit 25 minutes Katia Granados APRN - [employer] Work Phone: [facility] Comment on [...] type Start: 02-23-2023 ambulatory Nan Bush RN [facility] Cl inical Communication Start: 02-23-2023 Patient encounter procedure Nan Bush RN [facility] Clinical Communication Start: 02-15-2023 End: 02-15-2023 Subsequent hospital visit by physician Lenard Magallanes DO Work Phone: [facility] Comment on above: Arrived Start: 02-15-2023 End: 02-15-2023 ambulatory LENARD MAGALLANES [facility] Start: 02-07-2023 End: 02-07-2023 Office outpatient visit 15 minutes Katiajareth Jeffersonal 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[employer] Work Phone: [facility] Comment on above: Wound of right butto ck, subsequent encounter (Primary Dx); Chronic left shoulder pain Start: 02-07-2023 End: 02-07-2023 ambulatory SHIV LOPEZ [facility] Start: 01-25-2023 ambulatory [facility] Start: 01-25-2023 Patient encounter procedure Colette Poole RN [facility] Clinical Communication Start: 01-12-2023 Refill Katia Kylah thal 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[employer] 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 Phone: [facility] Comment on above: Vitamin D deficiency ; Acquired hypothyroidism; Chronic left shoulder pain; Restless legs syndrome (RLS) Start: 12-08-2022 Refill Katiajareth ley 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[employer] Work Phone: [facility] Comment on above: Hyperlipidemia with target LDL less than 70; Acquired hypothyroidism; Chronic left shoulder pain Start: 12-05-2022 ambulatory Sruthi Burns RN [facility] Clinical Communication Start: 12-05-2022 Patient encounter procedure Sruthi Burns RN [facility] Clinical Communication Start: 12-05-2022 End: 12-07-2022 Emergency department patient visit Anusha Velarde MD Work Phone: [facility] Comment on above: Acute lower GI bleed ing (Primary Dx); Rectal bleeding Start: 10-05-2022 Telephone encounter Shiv James MD Work Phone: [facility] Comment on above: Results Start: 08-12-2022 Refill Shiv Lopez MD Work Phone: [facility] Clinical Communication Start: 07-26-2022 Refill Shiv Lopez MD Work Phone: [facility] Start: 07-18-2022 Refill Katia Montero thal 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[employer] Work Phone: [facility] Comment on above: Vitamin D deficiency Start: 07-11-2022 Refill Shiv Lopez MD Work Phone: [facility] Start: 07-08-2022 ambulatory [facility] Start: 07-08-2022 Patient encounter procedure [facility] Comment on above: Trauma (Primary Dx) Start: 07-07-2022 Telephone encounter Devendra ramos MD Work Phone: [facility] [place] Comment on above: Reschedule (07/08/22 ) Start: 06-30-2022 End: 06-30-2022 Office outpatient visit 25 minutes Shiv Lopez MD Work Phone: [facility] Comment on above: Uncontrolled type 2 [...] by physician Shiv Lopez MD Work Phone: [facility] Radiology Comment on above: Dyspnea on exertion Start: 08-25-2021 End: 08-25-2021 Subsequent hospital visit by physician Sommer Chatterjee DPM Work Phone: [facility] Start: 11-05-2020 End: 11-05-2020 Subsequent hospital visit by physician Shiv Lopez MD Work Phone: [facility] Start: 10-07-2020 End: 10-07-2020 Subsequent hospital visit by physician Shiv Lopez MD Work Phone: [facility] Comment on above: Localized edema Start: 09-29-2020 End: 09-29-2020 Subsequent hospital visit by physician Shiv Lopez Work Phone: [facility] [place] [facility] Start: 09-08-2020 End: 09-08-2020 Subsequent hospital visit by physician Shiv Lopez Work Phone: [facility] Start: 09-01-2020 End: 09-01-2020 Subsequent hospital visit by physician Roseanne Roberts Work Phone: [facility] Start: 08-18-2020 End: 08-18-2020 Subsequent hospital visit by physician Shiv Lopez Work Phone: [facility] Start: 07-31-2020 End: 07-31-2020 Subsequent hospital visit by physician Shiv Lopez Work Phone: [facility] Start: 02-01-2019 End: 02-01-2019 Emergency department patient visit Dick Carter Db Work Phone: [facility] Emergency Dept Comment on above: Injury of head, init ial encounter (Primary Dx); Laceration of scalp, initial encounter; Strain of neck muscle, initial encounter Start: 01-18-2019 End: 01-18-2019 Subsequent hospital visit by physician Darya Berrios Work Phone: [facility] Laboratory Start: 12-21-2016 Ambulatory Shiv Lopez [facility] Procedures Date Procedure Procedure [...] et rgnt non-auto w/o micrscp Katia Bridenthal 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[employer] Work Phone: Start: 02-27-2023 Glucose [Mass/volume ] in Serum or Plasma Katia Bridenthal 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[employer] Work Phone: Start: 02-27-2023 Thyrotropin [Units/v olume] [...] 02-01-2019 Radiologic exam ches t single view [employer] Work Phone: Start: 02-01-2019 Radiologic examinati on pelvis 1/2 views [employer] Work Phone: Start: 02-01-2019 Ct cervical spine w/ o contrast material [facility] [employer] Work Phone: Start: 02-01-2019 Ct head/brain w/o co ntrast material [facility] [employer] Work Phone: Start: 02-01-2019 Blood typing serologic [...] Author Start: 09-23-2024 Urine culture Urine Culture [facility] Start: 09-23-2024 [facility] Start: 09-05-2024 Urine culture Urine Culture [facility] Start: 09-05-2024 [facility] Start: 02-28-2024 Thyroid stimulating hormone measurement TSH Level [facility] Start: 02-18-2024 Influenza vaccination Influenza Vacc ine (#1) [facility] Start: 02-08-2024 COVID-19 Vaccine (3 - Booster for Brian series) COVID-19 Vaccine (3 - Booster for Brian series) [facility] Comment on above: Postponed from 06/21 (Patient Refused) Start: 02-08-2024 DTaP/Tdap/Td Vaccine s (1 - Tdap) DTaP/Tdap/Td Vaccines (1 - Tdap) [facility] Comment on above: Postponed from 08/27 (Patient Refused) Start: 02-08-2024 Hepatitis C screening Hepatitis C [facility] Comment on above: Postponed from 08/27 (Patient Refused) Start: 02-08-2024 Zoster Vaccines (2 o f 2) Zoster Vaccines (2 of 2) [facility] Comment on above: Postponed from 05/26 (Patient Refused) Start: 08-10-2023 Depression Monitoring Depression Mon itoring [facility] Start: 08-10-2023 Depresssion Monitoring Depresssion M on[facility] centering [facility] Start: 06-30-2023 Lipid panel Lipid Panel [facility] Start: 06-30-2023 Thyroid stimulating hormone measurement TSH Level [facility] Start: 06-30-2023 Urine screening for protein Diabetes: Urine Protein Screening [facility] Start: 06-19-2023 Medicare Advantage Annual Wellness Visit Medicare Advantage Annual Wellness Visit [facility] Start: 06-14-2023 Depresssion Monitoring Depresssion M onitoring [facility] Start: 04-27-2023 End: 04-27-2023 Patient encounter procedure [facility] Start: 04-27-2023 Depresssion Monitoring Depresssion M onitoring [facility] Start: 04-08-2023 Blood chemistry [facility] Start: 04-01-2023 Blood chemistry [facility] Start: 03-25-2023 Blood chemistry [facility] Start: 03-20-2023 SARS-CoV-2 (COVID-19 ) Ag [Presence] in Respiratory specimen by Rapid immunoassay [facility] Start: 03-19-2023 Development of care plan [facility] Start: 03-18-2023 Patient discharge [facility] Start: 03-17-2023 End: 03-17-2023 [facility] Start: 03-17-2023 Microbial culture, routine Wound Culture [facility] Start: 03-17-2023 Bacterial nucleic ac id assay [facility] Start: 03-13-2023 [facility] Start: 03-06-2023 Referral to dust handler [facility] Start: 03-04-2023 Development of care plan [facility] Start: 03-03-2023 Admission procedure [facility] Start: 03-03-2023 Measuring intake and output [facility] Start: 03-03-2023 Patient referral to dietitian [facility] Start: 03-03-2023 Referral to occupational therapist [facility] Start: 03-03-2023 Referral to service [facility] Start: 03-03-2023 Vital signs measurements [facility] Start: 03-03-2023 [facility] Start: 03-03-2023 Verification routine [facility] Start: 03-03-2023 End: 03-03-2023 Patient encounter procedure [facility] Uro[facility]necology Start: 03-03-2023 Patient referral to dietitian [facility] Start: 02-27-2023 End: 02-28-2024 Bacteria identified in Urine by Culture Urine culture (clean catch) Microbiology Routine Urinary tract infection symptoms Expected: 02/27/2023 (Approximate), Expires: 02/28/2024 [facility] Comment on above: Expected: 02/27/2023 (Approximate), Expires: 02/28/2024 Start: 02-27-2023 End: 02-28-2024 CBC W Auto Differential panel - Blood CBC auto differential Lab Routine History of GI bleed Expected: 02/27/2023 (Approximate), Expires: 02/28/2024 [facility] Comment on above: Expected: 02/27/2023 (Approximate), Expires: 02/28/2024 Start: 02-27-2023 End: 02-28-2024 Comprehensive metabolic 1998 panel - Serum or Plasma Comprehensive metabolic panel Lab Routine 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, with long-term current use of insulin, unspecified whether stage 3a or 3b CKD (HCC) Primary hypertension Hypokalemia Expected: 02/27/2023 (Approximate), Expires: 02/28/2024 [facility] Work Phone: Comment on above: Expected: 02/27/2023 (Approximate), Expires: 02/28/2024 Start: 02-27-2023 End: 02-28-2024 Magnesium [Mass/volume] in Serum or Plasma Magnesium Lab Routine 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, with long-term current use of insulin, unspecified whether stage 3a or 3b CKD (HCC) Hypokalemia Expected: 02/27/2023 (Approximate), Expires: 02/28/2024 [employer] [facility] Comment on above: Expected: 02/27/2023 (Approximate), Expires: 02/28/2024 Start: 02-27-2023 End: 02-28-2024 Thyrotropin [Units/volume] in Serum or Plasma TSH Lab Routine Acquired hypothyroidism Expected: 02/27/2023 (Approximate), Expires: 02/28/2024 [facility] Comment on above: Expected: 02/27/2023 (Approximate), Expires: 02/28/2024 Start: 02-27-2023 End: 02-27-2023 Patient encounter procedure 02/27/2023 1:00 PM EDT Office Visit [facility] [address] [place] [id number] Carolina Connolly, 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[employer] [address] [place] [address] [facility]ro[facility] Start: 02-24-2023 End: 02-24-2023 Patient encounter procedure 02/24/2023 11:20 AM EDT Office Visit [facility] Family Medicine [address] [place] [address] [place] [address] Katia Granados, 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[employer] [address] [place] [address] [facility] Start: 02-22-2023 End: 02-22-2023 Patient encounter procedure 02/22/2023 2:00 PM EDT Appointment [facility] [address] [place] [address] Lenard Magallanes, DO [address] [place] [address] [facility] Start: 02-17-2023 COVID-19 Vaccine ( season) COVID-19 Vaccine ( season) [facility] Start: 02-17-2023 Influenza vaccination Influenza Vacc ine (#1) [facility] Start: 02-14-2023 End: 02-14-2023 Patient encounter procedure 02/14/2023 10:20 AM EDT Office Visit [facility] [address] [place] [address] [place] [address] Katia Granados, 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[employer] [address] [place] [address] [facility] Medicine Start: 02-01-2023 End: 02-01-2023 Patient encounter procedure 02/01/2023 2:15 PM EDT Office Visit [facility] Medicine [address] [place] [address] [place] [address] Shiv Lopez MD [address] [place] [address] [facility] Start: 01-25-2023 End: 01-25-2023 Patient encounter procedure 01/25/2023 3:00 PM EDT Office Visit [address] [place] [address] Shiv Lopez MD [address] [place], [place] [address] [address] [facility] Start: 01-03-2023 Hemoglobin A1c measurement Diabetes: Hemoglobin A1C [facility] Start: 10-25-2022 End: 10-25-2022 Patient encounter procedure 10/25/2022 Office Visit Family Medicine Shiv Lopez MD [address] [place], [place] [address] [address] [facility] Start: 09-29-2022 End: 09-29-2022 Patient encounter procedure 09/29/2022 Office Visit Family Medicine Shiv Lopez MD [address] [place], [place] [address] [address] [facility] Start: 09-28-2022 Hemoglobin A1c measurement Diabetes: Hemoglobin A1C [facility] Start: 09-09-2022 Creatinine measurement Creatinine mo nitoring [facility] Start: 09-09-2022 Potassium monitoring Potassium monit oring [facility] Start: 09-09-2022 Thyroid stimulating hormone measurement TSH testing [facility] Start: 08-05-2022 Creatinine measurement Creatinine mo nitoring [facility] Start: 08-05-2022 Potassium monitoring Potassium monit oring [facility] Start: 07-08-2022 Depression Monitoring Depression Mon itoring [facility] Start: 06-30-2022 End: 06-30-2023 25-hydroxyvitamin D3 [Mass/volume] in Serum or Plasma Vitamin D 25 hydroxy Lab Routine Vitamin D deficiency Expected: 06/30/2022 (Approximate), Expires: 06/30/2023 [facility] Work Phone: Comment on above: Expected: 06/30/2022 (Approximate), Expires: 06/30/2023 Start: 06-30-2022 End: 06-30-2023 Comprehensive metabolic 1998 panel - Serum or Plasma Comprehensive metabolic panel Lab Routine Uncontrolled type 2 diabetes mellitus with hyperglycemia (HCC) Expected: 06/30/2022 (Approximate), Expires: 06/30/2023 [facility] Comment on above: Expected: 06/30/2022 (Approximate), Expires: 06/30/2023 Start: 06-30-2022 End: 06-30-2023 Hemoglobin A1c/Hemoglobin.total in Blood Hemoglobin A1c Lab Routine Uncontrolled type 2 diabetes mellitus with hyperglycemia (HCC) Expected: 06/30/2022 (Approximate), Expires: 06/30/2023 [facility] Comment on above: Expected: 06/30/2022 (Approximate), Expires: 06/30/2023 Start: 06-30-2022 End: 06-30-2023 Lipid 1996 panel - Serum or Plasma Lipid panel Lab Routine Hyperlipidemia with target LDL less than 70 Expected: 06/30/2022 (Approximate), Expires: 06/30/2023 [facility] Comment on above: Expected: 06/30/2022 (Approximate), Expires: 06/30/2023 Start: 06-30-2022 End: 06-30-2023 Microalbumin/Creatinine panel in random Urine Microalbumin / creatinine urine ratio Lab Routine Uncontrolled type 2 diabetes mellitus with hyperglycemia (HCC) Expected: 06/30/2022 (Approximate), Expires: 06/30/2023 [facility] Comment on above: Expected: 06/30/2022 (Approximate), Expires: 06/30/2023 Start: 06-30-2022 End: 06-30-2023 Thyrotropin [Units/volume] in Serum or Plasma TSH Lab Routine Acquired hypothyroidism Expected: 06/30/2022 (Approximate), Expires: 06/30/2023 [facility] Comment on above: Expected: 06/30/2022 (Approximate), Expires: 06/30/2023 Start: 06-22-2022 Lipid panel [facility] Start: 03-31-2022 Pneumococcal Vaccine : 65+ Years (2 - PCV) Pneumococcal Vaccine: 65+ Years (2 - PCV) [facility] Start: 02-28-2022 End: 02-28-2022 Patient encounter procedure 02/28/2022 Office Visit Family Shiv Freed MD [address] [place] [address] B CARRIE TINGLEY [place] [address] [facility] Start: 02-17-2022 Annual Wellness Visi t (AWV) Annual Wellness Visit (AWV) [facility] Start: 02-16-2022 Hepatitis C screening Hepatitis C sc reen [facility] Comment on above: Postponed from 08/27 (Patient Refused) Start: 02-16-2022 Thyroid stimulating hormone measurement TSH testing [facility] Start: 11-02-2021 Hemoglobin A1c measurement Diabetes: Hemoglobin A1C [facility] Start: 10-01-2021 Creatinine measurement Creatinine mo nitoring [facility] Work Phone: Start: 10-01-2021 Potassium monitoring Potassium monit oring [facility] Work Phone: Start: 09-13-2021 End: 09-13-2021 Patient encounter procedure 09/13/2021 Office Visit Family Shiv Freed MD [address] [place] [address] [address] [facility] [place] [address] [facility] Start: 09-02-2021 End: 09-02-2021 Patient encounter procedure 09/02/2021 Office Visit Family Shiv Freed MD [address] [place] [address] [address] [facility] [place] [address] [facility] Start: 06-24-2021 Thyroid stimulating hormone measurement TSH testing [facility] Work Phone: Start: 06-24-2021 TSH Qn TSH testing [facility] Work Phone: Start: 06-21-2021 COVID-19 Vaccine (3 - Booster for Brian series) COVID-19 Vaccine (3 - Booster for Brian series) [facility] Start: 05-26-2021 Shingles Vaccine (2 of 2) Shingles Vaccine (2 of 2) [facility] Start: 05-26-2021 Zoster Vaccines (2 o f 2) Zoster Vaccines (2 of 2) [facility] Start: 04-20-2021 Creatinine measurement [facility] mo [facility] Work Phone: Start: 04-20-2021 Potassium monitoring Potassium monit oring [facility] Work Phone: Start: 01-15-2021 Screening for osteoporosis DEXA (modify frequency per FRAX score) [facility] Work Phone: Comment on above: Postponed from 08/27 (Patient Refused) Start: 01-07-2021 Urine screening for protein Diabetes: Urine Protein Screening [facility] Start: 10-12-2020 End: 10-12-2020 Patient encounter procedure 10/12/2020 Office Visit Family Medicine Shiv Lopez MD [address] [place] [address] [place], [place] [id number] [facility] Start: 10-08-2020 End: 10-08-2020 Patient encounter procedure 10/08/2020 Office Visit Family [facility] [place] [place] [id number] Canceled (Patient) [facility] Comment on above: Canceled (Patient) Start: 10-01-2020 End: 10-01-2020 Office Visit 10/01/2020 Office Visit Family [facility] [place], [place] [phone] [facility] Start: 06-03-2020 Lipid panel Lipid screen [facility] Work Phone: Start: 01-21-2020 A1C test (Diabetic o r Prediabetic) A1C test (Diabetic or Prediabetic) [place] Start: 01-19-2020 TSH testing TSH testing [place], [place] Start: 06-07-2019 DTaP/Tdap/Td vaccine (1 - Tdap) DTaP/Tdap/Td vaccine (1 - Tdap) [place] Comment on above: Postponed from 08/27 (Patient Refused) Start: 05-23-2019 Diabetic retinal exam Diabetic retin al exam [place] Start: 04-12-2019 Lipid screen Lipid screen [place], [place] Start: 02-17-2019 Influenza vaccination Flu vaccine (# 1) [place] Start: 12-05-2018 Annual Wellness Visi t (AWV) Annual Wellness Visit (AWV) [facility] [email or web address] Phone: Start: 10-06-2017 [object Object] Diabetic foot exam [place] Start: 10-06-2017 Annual Wellness Visi t (AWV) Annual Wellness Visit (AWV) [place] Start: 03-09-2013 Pneumococcal 65+ yea rs Vaccine (2 of 2 - PCV13) Pneumococcal 65+ years Vaccine (2 of 2 - PCV13) [place] Start: 08-27-2008 DEXA (modify frequen cy per FRAX score) DEXA (modify frequency per FRAX score) [place] Start: 08-27-2008 Pneumococcal 65+ yea rs Vaccine (1 of 2 - PCV13) Pneumococcal 65+ years Vaccine (1 of 2 - PCV13) [place] Start: 2003 RSV Immunization age d 60 or older (1 - 1-dose 60+ series) RSV Immunization aged 60 or older (1 - 1-dose 60+ series) [facility] Start: 08-27-1993 Colon cancer screen colonoscopy Colon cancer screen colonoscopy [place], [place] Start: 08-27-1993 Shingles Vaccine (1 of 2) Shingles Vaccine (1 of 2) [place] Start: 08-27-1962 DTaP/Tdap/Td vaccine (1 - Tdap) DTaP/Tdap/Td vaccine (1 - Tdap) [facility] Start: 08-27-1962 DTaP/Tdap/Td Vaccine s (1 - Tdap) DTaP/Tdap/Td Vaccines (1 - Tdap) [facility] Start: 08-27-1961 Hepatitis C screening Hepatitis C Sc reening [facility] Start: 1959 COVID-19 Vaccine (1 of 2) COVID-19 Vaccine (1 of 2) [facility] Work Phone: Start: 1959 COVID-19 Vaccine (1) COVID-19 Vaccin e (1) [facility] Work Phone: Start: 08-27-1953 Diabetic foot examination Diabetes: Foot Exam [facility] Start: 08-27-1953 Glaucoma screening Diabetes: R etinopathy Screening [facility] Start: 08-27-1953 Preventive dental service Diabetes: Dental Exam [facility] Start: 1945 Hepatitis B Vaccines (1 of 3 - 3-dose series) Hepatitis B Vaccines (1 of 3 - 3-dose series) [facility] Start: 1945 Hepatitis C screening Hepatitis C sc reen [facility] Work Phone: Start: 1945 Thyroid stimulating hormone measurement TSH Level [facility] Dressing Order: Xeroform; Daily; Silicone foam borders (multiple sizes) Dressing Order: Xeroform; Daily; Silicone foam borders (multiple sizes) Wound Ostomy Routine Ordered: 02/15/2023 [facility] Work Phone: Comment on above: Ordered: 02/15/2023 EKG 12 Lead EKG 12 Lead ECG Routine 02/01/2019 7:40 PM EDT [facility], [place] Patient referral [facility] Work Phone: Tissue exam [facility] Work Phone: Comment on above: Release Upon Orderin g for 1 Occurrences starting 12/07/2022, 1 completed Immunizations Immunization Date Immunization Notes Care Provider Fa shahla 03-17-2023 Influenza High-Dose Quadrivalent [facility] 03-17-2023 influenza virus vacc ine, unspecified formulation Felicia Garcia LPN [facility] 03-01-2023 Influenza Vac A&B SA Adj quadrivalent (Fluad) vaccine 0.5 mL Tasneem Whaley MD Work Phone: [facility] 04-26-2022 influenza, high dose seasonal, preservative-free Shiv Lopez MD Work Phone: [facility] 04-26-2022 Pneumococcal Conjuga te PCV20, Pf (Prevnar 20) Shiv Lopez MD Work Phone: [facility] 04-26-2022 influenza virus vacc ine, unspecified formulation Katia Granados 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[employer] Work Phone: [facility] 04-26-2021 COVID-19, Moderna, Primary or Immunocompromised, PF, 100mcg/0.5mL Sommer Chatterjee DPM Work Phone: [facility] Work Phone: 03-31-2021 Influenza, Quadv, adjuvanted, 65 yrs +, IM, PF (Fluad) Sommer JARRETTM Work Phone: [facility] Work Phone: 03-31-2021 pneumococcal polysaccharide vaccine, 23 valent Sommer JARRETTM Work Phone: [facility] Work Phone: 03-31-2021 zoster vaccine recombinant Sommer Chatterjee DPM Work Phone: [facility] Work Phone: 08-27-2020 COVID-19, J&J, PF, 0 .5 mL Shiv Lopez MD Work Phone: [facility] Work Phone: 03-31-2020 influenza virus vacc ine, unspecified formulation Shiv Lopez [facility] Work Phone: 03-31-2020 Influenza, Quadv, adjuvanted, 65 yrs +, IM, PF (Fluad) Shiv Lopez [facility] Work Phone: 06-03-2019 influenza, high dose seasonal, preservative-free Shiv Lopez [facility] 05-25-2018 influenza, high dose seasonal, preservative-free Darya Berrios [facility] 05-13-2013 influenza virus vacc ine, unspecified formulation Darya Berrios [place], [place] 05-13-2013 influenza virus vacc ine, whole virus Shiv Lopez [facility] Work Phone: 03-09-2012 pneumococcal Conjuga te, unspecified formulation Shiv MERCADO Work Phone: 03-09-2012 pneumococcal polysaccharide vaccine, 23 valdevonte [facility] 03-09-2012 pneumococcal vaccine , unspecified formulation [facility] 04-13-2010 pneumococcal polysaccharide vaccine, 23 valdevonte Berrios [facility] 03-21-2001 pneumococcal polysaccharide vaccine, 23 valent Darya Berrios [place], [place] Payers Date Payer Category Payer Self-pay [id number] 2024 Unknown [id number] 2024 Unknown [id number] 2022 Medicare HUMANA MEDICARE ADVANTAGE HU[employer]NA MEDICARE [id number] 2022-Present [address] [address] [place] [address] Medicare HMO [id number] 2020 Medicare [id number]. [id number] 2020 Medicare [id number]. [id number] 2018 Medicare HUMANA MEDICARE HUMANA CHOICE-PPO MEDICARE xxxxxxxxx 2018-Present [address] [address] [place] [address] xxxxxxxxx [id number]. [id number] Private Health Insurance [facility] [id number] Unknown Unknown [id number] WELL CARE DUAL ACCESS [id number] Unknown [id number] 2.16.840.1.568857.3.579.2. 462 Unknown [id number] 2.16.840.1.544065.3.579.2. 462 Unknown [id number] 2.16.840.1.291988.3.579.2. 462 Unknown [id number] 2.16.840.1.736375.3.579.2. 462 Unknown [id number] 2.16.840.1.406239.3.579.2. 462 Unknown [id number] 2.16.840.1.607280.3.579.2. 462 Unknown [id number] 2.16.840.1.690611.3.579.2. 462 Unknown [id number] 2.16.840.1.270288.3.579.2. 462 Unknown [id number] 2.16.840.1.338424.3.579.2. 462 Unknown [id number] 2.16.840.1.572636.3.579.2. 462 Unknown [id number] 2.16.840.1.568774.3.579.2. 462 Unknown [id number] 2.16.840.1.179216.3.579.2. 462 Unknown [id number] 2.16.840.1.892809.3.579.2. 462 Unknown [id number] 2.16.840.1.388966.3.579.2. 462 Unknown [id number] 2.16.840.1.901459.3.579.2. 462 Unknown [id number] 2.16.840.1.459560.3.579.2. 462 Unknown [id number] 2.16.840.1.323855.3.579.2. 462 Unknown [id number] 2.16.840.1.155778.3.579.2. 462 Unknown [id number] 2.16.840.1.391309.3.579.2. 462 Unknown [id number] 2.16.840.1.311891.3.579.2. 462 Unknown [id number] 2.16.840.1.345584.3.579.2. 462 Unknown [id number] 2.16.840.1.837106.3.579.2. 462 Unknown [id number] 2..840.1.716790.3.579.2. 462 Unknown [id number] 2..840.1.436932.3.579.2. 462 Unknown [id number] 2.840.1.377071.3.579.2. 462 Unknown [id number] 2.840.1.465255.3.579.2. 462 Unknown [id number] 2.840.1.030076.3.579.2. 462 Unknown [id number] 2.840.1.763551.3.579.2. 462 Unknown [id number] 2.840.1.511463.3.579.2. 462 Unknown [id number] 2.840.1.564952.3.579.2. 462 Unknown [id number] 2.840.1.383146.3.579.2. 462 Unknown [id number] 2.840.1.550166.3.579.2. 462 Unknown [id number] 2.16.840.1.585417.3.579.2. 462 Unknown [id number] 2.840.1.756989.3.579.2. 462 Unknown [id number] 2.840.1.611262.3.579.2. 462 Unknown [id number] 2.16.840.1.620403.3.579.2. 462 Unknown [id number] 2.16.840.1.379381.3.579.2. 462 Social History Date Type Detail Facility Start: 07-13-2020 End: 03-03-2023 Tobacco smoking status NHIS Never smoker [place] Start: 07-13-2020 End: 04-09-2022 Tobacco use and exposure Never used [employer] Work Phone: Start: 07-13-2020 End: 06-30-2022 Alcohol intake Current drinker of alcohol (finding) [employer] Work Phone: Start: 01-13-2015 Alcohol Comment [place], [place] Start: 1945 Sex Assigned At Female [employer] Phone: Start: 08-30-2021 End: 02-28-2023 Exposure to SARS-CoV-2 (event) Not sure [employer] Work Phone: Start: 01-18-2019 End: 12-13-2022 Alcohol intake Yes [facility] Sex Assigned At Not on file [place] Start: 02-01-2019 End: 03-03-2023 Tobacco smoking status NHIS Unknown if ever smoked [facility] Start: 10-14-2020 End: 12-13-2022 Alcohol intake [facility] Start: 02-16-2021 End: 04-26-2022 History SDOH Alcohol Frequency 1 [employer] Work Phone: Start: 02-15-2021 End: 04-26-2022 History SDOH Financial 3 [employer] Work Phone: Start: 02-15-2021 End: 04-26-2022 History SDOH Transport Med 2 [employer] Work Phone: Start: 04-09-2022 Alcohol Comment social [facility] Within the last year , have you been afraid of your partner or ex-partner? No [facility] How often to you hav e a drink containing alcohol? 2-4 times a month [facility] How many standard dr inks containing alcohol [...] medical appointments or from getting medications? No [facility] Start: 12-07-2022 Alcohol Comment social; 1 mixed drink every 2 weeks [facility] Start: 04-07-2022 Gender identity Identifies as female gender (finding) [facility] Start: 04-07-2022 Sexual orientation Heterosexual (finding) [facility] Do you feel stress - tense, restless, nervous, or anxious, or unable to sleep at night because your mind is troubled all the time - these days [OSQ] Only a little [facility] Are you now , , , , never or living with a partner? [facility] Start: 09-18-2024 End: 10-14-2024 Sex Female (finding) [facility] Medical Equipment Procedure Code Equipment Code Equipment Origin al Text Equipment Identifier Dates Test blood sugar 4 times a day [id number] Start: 03-25-2020 End: 10-01-2020 2 daily [id number] Start: 03-20-2019 Test blood sugar 4 times daily [id number] Start: 01-01-2019 test blood sugar 4 times daily [id number] Start: 01-13-2020 300 each by Does not apply route 4 times daily [id number] Start: 01-01-2019 ASSURE COMFORT LANCETS 30G MISC [id number] Start: 09-07-2016 1 each by In Vit ro route 4 times daily [id number] Start: 01-01-2019 4 times a day [id number] Start: 09-22-2017 2 daily [id number] Start: 01-03-2019 4 times a day [id number] Start: 07-25-2018 1 each by In Vit ro route 4 times daily as needed (patient tests four times daily and as needed) Patient tests QID [id number] Start: 03-01-2021 Test blood sugar 4 times daily [id number] Start: 12-18-2020 1 each by In Vit ro route 4 times daily Accu-check [employer] [facility] [id number] Start: 06-22-2021 End: 08-05-2021 Test blood sugar 3 times a day.PLEASE FILL FOR QUIK TEST STRIPS [id number] Start: 09-09-2021 [id number] Start: 01-10-2022 End: 03-03-2023 Goals Date Patient [...] Facility 03-18-2023 Functional status Ambulates;Wilson r;Bathroom Privilege [facility] Work Phone: Mental Status Date Assessment Result Facility 03-18-2023 Cognitive function Voice/Name [facility] Work Phone: 03-18-2023 Cognitive function Appropriate;Coopersuly e [facility] Work Phone: Clinical Notes 06-30-2022 to 12-29-2023 Felicia Garcia LPN - 12/29/2023 1:02 PM EDTRyolanda Garcia LPN - 12/29/2023 1:02 PM EDTAshia Dumont - 12/29/2023 1:02 PM EDT Note Date & Type Note Facility 12-29-2023 History of Presen t illness Narrative Please schedule AWV. documented in this encounter [facility] 12-29-2023 History of Presen t illness Narrative Please schedule AWV. Called patient---phone number is not working--sent letter by mail. documented in this encounter [facility] 05-19-2023 Note THE PT. WAS SCHEDULE D FOR AN OUTREACH TODAY. EMR REVIEWED. CM CALLED AND SPOKE WITH A STAFF MEMBER AT [facility] AND THE PT. IS STILL ADMITTED TO THE [facility]. CM WILL CONTINUE TO FOLLOW-UP WITH THE PT. ONCE SHE IS DISCHARGED TO HOME. [facility] 05-03-2023 Note THE PT. WAS SCHEDULE D FOR AN OUTREACH TODAY. EMR REVIEWED. CM CALLED AND SPOKE WITH A STAFF MEMBER AT [facility] AND THE PT. IS STILL ADMITTED TO THE [facility]. CM WILL CONTINUE TO FOLLOW-UP WITH THE PT. ONCE SHE IS DISCHARGED TO HOME. [facility] 03-29-2023 Note Referral from [employer] Daily Census Report. Patient with recent admit to [facility] 02/28-03/03 with LING/functional decline and was discharged to [facility]. Patient with several chronic diagnoses. Will send referral to [facility] Shari BARROW, for further chart review and potential ongoing CM. [facility] 03-17-2023 Discharge summary Note Date/Time March 15, 2023 7:15pm [facility] Medical Records Department [address] [place] [address] Discharge Summary 03/15/231913 MR#: [id number] Acct: [id number] Name: RADHA SANDOVAL Rep #:[id number] : 1945 77 From: Baljit Jaffe MD PCP: Dr. Shiv Lopez MD Status:ADM IN Location: [place] [address] Providers Date of Admission: 03/03/23 Primary Care [...] - Buspar 5mg bid prn, stable chronic superintendent terminal use, GDR not recommended. * Vitamin D [...] Depression - Paroxetine 20mg qhs, stable chronic longterm use, GDR not recommended. * Restless Leg [...] unit/mL subcutaneous solution 19 unit subcut DAILY Sslrtxqj80/15/23 insulin lispro 100 unit/mL subcutaneous pen (Humalog [...] bid x 10 days, culture pending at [facility] lab. 03/17/23 1545<Electronically signed by Baljit Jaffe MD> Cosigner Signature (if applicable): cc: Dr. Shiv Lopez MD; Dr. Baljit Jaffe MD ~* Signed [facility] Work Phone: 1(970) 197-287709-27-2023 Discharge summary Author [facility] March 15, 2023 7:35pm Note Date/Time March 15, 2023 7:35pm [facility] Medical Records Department [address] [place] [address] Transfer to [facility] MR#: [id number] Acct: [id number] Name: RADHA SANDOVAL Rep #:[id number] : 1945 77 From: Baljit Jaffe MD PCP: Dr. Shiv Lopez MD Status:ADM IN Certification of patient admission REQUIRED AT TIME OF ADMISSION. I CERTIFY THAT POST-HOSPITAL F SERVICES ARE REQUIRED TO BE GIVEN ON AN IN-PATIENT BASIS BECAUSE OF THE ABOVE NAMED PATIENT'S NEED FOR FPC CARE ON A CONTINUING BASIS FOR THE CONDITION(S) FOR WHICH HE/SHE WAS RECEIVING IN-PATIENT HOSPITAL SERVICES PRIOR TO HIS/HER TRANSFER TO THE [facility]. 03/15/231934<Electronically signed by Baljit Jaffe MD> Diet [...] - Buspar 5mg bid prn, stable chronic superintendent terminal use, GDR not recomme nded. * Vitamin [...] Depression - Paroxetine 20mg qhs, stable chronic longterm use, GDR not recommended. * Restless Leg [...] ALEXI Huitron; Dr. Shiv Lopez MD ~ [facility] Work Phone: 1(823) 749-597909-27-2023 NotePlease send her immunization record [facility]09-20-2023 Consult note Author Shine Rojas [facility] March 08, 2023 11:33am Note Date/Time March 08, 2023 11:33am [facility] Medical Records Department [address] [place] [address] Consultation 03/08/23 1130 MR#: [id number] Acct: [id number] Name: RADHA SANDOVAL Rep #:[id number] : 1945 77 From: Shine Rojas DPM PCP: Dr. Shiv Lopez MD Status:ADM IN [facility] Assessment & Plan Assessment/Plan (1) Type [...] controlled today not causing patient any issues. [facility] Medical History Anemia Arthritis Chronic [...] unit/mL subcutaneous solution 19 unit subcut DAILY Hcsrjiuf76/15/23 [History Last Taken 03/03/23] insulin lispro 100 [...] Lopez MD; Dr. Baljit Jaffe MD~ Signed [facility] Work Phone: 1(251) 439-291609-19-2023 Progress note Author Betty Hicks [facility] March 07, 2023 4:16pm Note Date/Time March 07, 2023 3:00pm [facility] Medical Records Department [address] [place] [address] Progress Note - Pharmacy 03/07/23 1456 MR#: [id number] Acct: [id number] Name: RADHA SANDOVAL Rep #:[id number] : 1945 77 From: Betty Hicks PCP: Dr. Shiv Lopez MD Status:ADM IN Location: [place] [address] TCU RX Drug Regimen Review Subjective/Objective Subjective/Objective: [...] Mg/0.4 Ml Syringe SC 40 mg DAILY@0600 [facility] Administration Ergocalciferol 1.25 mg 03/10/23 08:00 Ergocalciferol 1.25 Mg (50, 000 Unit) Capsule PO QWEEK [facility] Hydralazine HCl 25 mg 03/03/23 22:00 03/07/23 14:08 Hydralazine 25 Mg Tablet PO 25 mg TID [facility] Administration Hydroxyzine Pamoate 25 mg 03/07/23 08:07 03/07/23 14:50 Hydroxyzine Juanita 25 Mg Capsule PO 25 mg TID PRN PRN Administration ITCHING/ANXIETY Insulin Glargine 19 unit 03/04/23 10:00 03/07/23 08:52 Insulin Glargine-Yfgn 100 Unit/Ml Pen SC 19 unit DAILY [facility] Administration Insulin Human Lispro 10 unit 03/03/23 16:45 03/07/23 11:54 Insulin Lispro 100 Unit/Ml Insuln.Pen SC 10 unit TIDAC [facility] Administration Levothyroxine Sodium 125 mcg 03/04/23 06:00 03/07/23 06:43 Levothyroxine 125 Mcg Tablet PO 125 mcg DAILY@0600 [facility] Administration Magnesium Citrate 300 ml 03/03/23 16:40 Magnesium Citrate 300 Ml PO DAILY PRN CONSTIPATION Melatonin 3 mg 03/03/23 22:00 03/06/23 20:54 Melatonin 3 Mg Tablet PO 3 mg QHS [facility] Administration Nutritional Formula (Lactose Free) 120 ml 03/03/23 17:45 03/07/23 11:48 Glucerna Shake 120 Ml Liquid PO 120 ml TIDCM [facility] Administration Nystatin 1 applic 03/03/23 22:00 03/07/23 08:54 Nystatin Powder 30 Gm Bottle TOPICAL 1 applic BID [facility] Administration Protocol Nystatin/Triamcinolone Acetonide 1 applic 03/03/23 22:00 03/07/23 08:53 Nystatin/Triamcin Cream Tube TOPICAL 1 applic BID [facility] Administration Protocol Paroxetine HCl 20 mg 03/04/23 [...] [place] Signature (if applicable): CC: ~ Signed [facility] Work Phone: 1(460) 869-692909-15-2023 History and physical note Author Baljit Jaffe [facility] March 03, 2023 4:39pm Note Date/Time March 03, 2023 3:08pm [facility] Medical Records Department [address] [place] [address] History & Physical Exam 03/03/23 1501 MR#: [id number] Acct: [id number] Name: RADHA SANDOVAL Rep #:[id number] : 1945 77 From: Baljit Jaffe MD PCP: Dr. Shiv Lopez MD Status:ADM IN Location: TCU [place] [address] HPI - General General Date of Admission: 03/03/23 Date of Service: 03/03/23 Chief Complaint: Here for rehabilitation. HPI Narrative RADHA SANDOVAL, is a 77 Female who presents with followin02/27/2023 Dr. Shiv Lopez prescribed Augmentin for dysuria, polyuria, low back pain for urinary tract infection. Augmentin not started, symptoms worse, patient presented to ED. 02/28/2023 Admit to [facility]. Low back pain, dysuria, polyuria, weakness. Diabetes with hyperglycemia, weakness, urinary tract infection. IV antibiotics for urinary tract infection. IV fluids, sliding scale insulin for Diabetes Mellitus II. PT/OT for weakness. 03/01/2023 Feels better, weak, pain improved. Continue IV antibiotics. 03/03/2023 Admit to TCU with debility, here for rehabilitation, strengthening, prior to discharge home alone. [facility] Medical History Anemia Arthritis Chronic [...] unit/mL subcutaneous solution 19 unit subcut DAILY Zgneptln87/15/23 [History Last Taken 03/03/23] insulin lispro 100 [...] - Buspar 5mg bid prn, stable chronic longterm use, GDR not recommended. * Vitamin D [...] Depression - Paroxetine 20mg qhs, stable chronic longterm use, GDR not recommended. * Restless Leg syndrome - Mirapex 0.25mg qhs. 03/03/23 1639 <Electronically signed by Baljit Jaffe MD> Cosigner Signature (if applicable): CC: Dr. Shiv Lopez MD; Dr. Baljit Jaffe MD~ Signed [facility] Work Phone: 1(259) 928-564109-15-2023 History of Present illness Narrative* Randi Marquez RN - 03/03/2023 1:08 PM EDT Discharged via ambulance to [facility] * Randi Marquez RN - 03/03/2023 11:19 AM EDT Report called to pippa at [facility] at [phone] * Jelly Paz APRN - CUTLET MAKER PORK - 03/02/2023 12:54 PM EDT Images from the original note were not included. Department of Internal Medicine Division of Endocrinology, Diabetes, & Metabolism Endocrinology Note Patient Name: Radha Sandoval : 1945 AGE: 77 y.o. Room/Bed: [facility]/[address] Admission Date: 02/28/2023 Visit Date: 03/02/2023 Reason for Endocrine Consult: DM-Uncontrolled Provider/Team Requesting Consult: Dr. Finch PCP: Shiv Lopez MD Outpt Sizing Sprayer: No ASSESSMENT: Type II diabetes with hyperglycemia, with superintendent terminal insulin use Postoperative hypothyroidism Patient admitted for [...] to discharge to SNF - [facility] Outpt Follow Up-- PCP SUBJECTIVE/HPI: CHIEF [...] diagnosis. She has been having diarrhea in 3582-5994, smt severe Glimepiride- started in 2015 Trulicity [...] CHOLHDLRATIO 4 02/16/2021 No results found for: [id number] Lab Results Component Value Date TSH 0.03 (L) 02/27/2023 Radiology reportsas per the Radiologist Radiology: CT abdomen pelvis wo IV contrast Result Date: 02/28/2023 [facility] 1945 [id number] ExamDate/Time: 02/28/2023 13:07 Procedure: CT ABDOMEN PELVIS [...] 12/07/2022 Performed by Avery Marshall DO at [facility] ENDOSCOPY EYE SURGERY Bilateral early LUNG REMOVAL, [...] were not included. Occupational Therapy OCCUPATIONAL THERAPY [facility] & ED's Treatment Note Name/MRN: Radha Sandoval ([id number]) Date of : 1945 Age: 77 y.o. [...] note were not included. Hospitalist Progress Note 03/02/[id number]: Please secure chat me for patient care issues. [phone]: Please secure chat [facility] Hospitalist for any issues. Subjective: Admit Date: 02/28/2023 PCP: Shiv Lopez MD Room#: B1-153/B1-153 A Interval History: Tolerating diet. Remains weak. Still urinating frequently. She denies chest pain,sob, cough, abdominal pain, nausea, vomiting, diarrhea, constipation, fevers, or chills. D/w pt Adult diet Regular; Low Sodium (2 gm); 4 carb choices (60 gm/meal) @[id number]@ 24HR INTAKE/OUTPUT: No intake or output data [...] Primary Emergency Contact: Angel Roger Address: [address] Mobile Relation: Child GABRIELLE FINCH MD Division of Hospitalist Medicine [facility] PAGER: [employer] chat * Diann Hollis APRN - CUTLET MAKER PORK - 03/02/2023 9:31 AM EDT [facility] Geriatric Medicine Inpatient Consult Service Admission Date: 02/28/2023 Assessment Principal Problem: LING (acute kidney injury) (CMS/HCC) ([facility]) Active Problems: Declining functional status Weakness Anxiety Polypharmacy DNR (do not resuscitate) Insomnia Plan Declining functional status -Related to physical deconditioning, UTI, advanced age, diabetes type 2 -Continue PT/OT as able while inpatient -Anticipate d/c to SNF for ongoing daily PT/OT, patient agreeable to go to [facility] Fall Weakness -Multiple risk factors including [...] contact guard. Ambulated 30 ft x2. Recommending half-way facility . Review of Systems Constitutional: Negative [...] 5 mg, 5 mg, Oral, BID PRN, Aadm Holt MD chlorhexidine (Hibiclens) 4 % liquid, [...] 19 Units, SubCUTAneous, q AM, Jelly Paz, 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CUTLET MAKER PORK, 19 Units at 03/02/23908 Insulin Lispro (Humalog) injection 0-12 Units, 0-12 Units, SubCUTAneous, TID WC, 2 Units at 03/02/23908 AND [DISCONTINUED] Insulin Lispro (Humalog) injection 0-12 Units, 0-12 Units, SubCUTAneous, Nightly, Gabrielle Finch MD, 4 Units at 02/28/232053 Insulin Lispro (Humalog) injection 6 Units, 6 Units, SubCUTAneous, 4x daily AC & HS, Jelly Paz, ELSA - CUTLET MAKER PORK, 6 Units at 03/02/23604 levothyroxine (Synthroid, Levoxyl) [...] 0.03 (L) 02/27/2023 No results found for: [id number] Lab Results Component Value Date VITD25 17 (L) 03/02/2023 Reviewed: allergies, previous encounters, imaging, active problem lists, medications, and labs * Edelmira Hanna - 03/02/2023 8:23 AM EDT Nutrition rescreen completed. Pt referred to RD for uncontrolled DM, and nutrition supplement per Wound Care. * Monet Mcdonnell, PT - 03/01/2023 3:47 PM EDT Physical Therapy Facility/Department: [address] Physical Therapy Initial Evaluation NAME: Radha Sandoval : 1945 Date of Service: 03/01/2023 Discharge Recommendations: Long Term Facility, Continue to assess pending progress PT [...] (acute kidney injury) (CMS/HCC) ([facility]). Diagnoses of Pyelonephritis, Polypharmacy, Insomnia, unspecified type, and Pressure ulcer of right buttock, stage 3 (HCC) were also pertinent to this visit. has a past medical history of Acquired lymphedema, Allergic, Anxiety, Arthritis, Asthma, Candidiasis of vulva and vagina, CKD (chronic kidney disease), Depression, Dietary counseling and surveillance, Hyperlipidemia, Hyperparathyroidism ([facility]), Hypertension, Hypothyroidism, Malaise and fatigue, Morbid [...] Device: straight cane Transfer Assistance: Independent Active Industrial Psychology Teacher: Yes Objective Observation/Palpation Posture: Good Observation: PIV [...] were not included. Hospitalist Progress Note 03/01/2023 [phone]: Please secure chat me for patient care issues. [phone]: Please secure chat [facility] Hospitalist for any issues. Subjective: Admit Date: 02/28/2023 PCP: Shiv Lopez MD Room#: B1-153/B1-153 A Interval History: Feels better. Weak. Tolerating diet. Pain markedly improved. She denies chest pain, sob, cough, abdominal pain, nausea, vomiting, diarrhea, constipation, fevers, or chills. D/w pt and Geriatrics separately. Adult diet Regular; Low Sodium (2 gm); 4 carb choices (60 gm/meal) @ADYT1CNUSIG@ 24HR INTAKE/OUTPUT: No intake or output data [...] Primary Emergency Contact: Angel Roger Address: [address] Mobile Relation: Child GABRIELLE FINCH MD Division of Hospitalist Medicine [facility] PAGER: Epic chat * Gunner Roberts, OT - 03/01/2023 11:54 AM EDT Images from the original note were not included. Occupational Therapy OCCUPATIONAL THERAPY [facility] & ED's Initial Evaluation Name/MRN: Radha Sandoval ([id number]) Evaluation Date: 03/01/2023 Date of : 1945 [...] 12/07/2022 Performed by Avery Marshall DO at [facility] ENDOSCOPY EYE SURGERY Bilateral early ' LUNG REMOVAL, PARTIAL Left ROTATOR CUFF REPAIR Left TONSILLECTOMY Admission Diagnosis: Patient Active Problem List Diagnosis Date Noted LIGN (acute kidney injury) ([facility]/HCC) (HCC) 02/28/2023 Acute cystitis with hematuria [...] diabetes mellitus with hyperglycemia ([facility]) 01/16/2020 Morbidly obese ([facility]) 01/16/2020 Vitamin D deficiency 01/16/2020 Moderate episode of recurrent major depressive disorder ([facility]) 06/03/2019 Chronic renal insufficiency, stage III (moderate) ([facility]) 06/03/2019 Hyperlipidemia with target LDL less [...] Responsibilities: Independent Receives Help From: None Active Industrial Psychology Teacher: Yes Prior Level of Function ADL Assistance: [...] of Care supervision is transferred to a [facility] Therapy Services Occupational Therapist. Goals and/or treatment plan was established in collaboration with patient/family/other representatives. documented in this [facility]09-15-2023 Hospital course Narrative* Gabrielle Finch MD - [...] wound care RECOMMENDED NEXT STEPS: Transferred to [facility] SNF. Continue close monitoring of BG. [...] mg) by mouth daily. ergocalciferol 1.25 MG (07137 UT) capsule Commonly known as: Vitamin D-2 [...] Your Medications These medications were sent to [facility] [address] [place] [address] Hours: Monday to Monday 10 am to [...] Complexity: follow up within 7-14 calendar days (50821) [] Severe Complexity: follow up within 7 calendar days (93424) FOLLOW UP TESTING, PENDING RESULTS OR REFERRALS AT TRANSITIONAL CARE VISIT: [] Yes [] No PENDING STUDIES: No DISPOSITION: SNF FACILITY/HOME CARE AGENCY NAME: [facility] Follow up with [facility] [address] [facility] [address] INSTRUCTIONS TO MA/SW: Please call [...] MD 03/03/2023, 5:28 PM documented in this [facility]09-15-2023 NoteDischarge Summary Radha Sandoval : 1945 ADMIT [...] wound care RECOMMENDED NEXT STEPS: Transferred to [facility] SNF. Continue close monitoring of BG. [...] mg) by mouth daily. ergocalciferol 1.25 MG (15730 UT) capsule Commonly known as: Vitamin D-2 [...] taking these medications amoxicillin-clavulan (more content not included)...[facility] 03-03-2023 Note* Care Coordination - Ester Lipscomb - 03/03/2023 11:21 AM EDT Discharge med [facility] request. [facility]bp[facility]83-[facility]-2437 Miscellaneous Notes* Restricted notes were excluded * Care Coordination - Ester Lipscomb - 03/03/2023 11:21 AM EDT Discharge med list transmitted to [facility] via [facility] per [facility] request. * Care Coordination - Unknown Case Management - 03/03/2023 11:20 AM EDT Patient Choice Patient Name: RADHA SANDOVAL Date of : 1945 All Providers Sent Referral Name: [facility] Address: [address] [place] [address] Name: [facility] Address: [address] [place] [address] * Care Coordination - Laura Jackson RN - 03/03/2023 9:33 AM EDT Spoke with pt at bedside regarding POA, pt states she is not interested at this time to complete itand would consider completing at [facility] - did call Rafaela at [facility] to update her as well. * Care Coordination - COLT Hill - 03/03/2023 8:41 AM EDT Transportation arranged through [facility] by cot set for 10 am steel pickler. Will notify RN and TCC of this in rounds. Notified patient's son via phone of transportation time. SW remains available if any other needs concerns arise. * Care Coordination - Laura Jackson RN - 03/03/2023 7:29 AM EDT Insurance auth obtained for [facility] half-way facility, updated Dr Finch notified via [employer] Chat. * Care Coordination - Laura Jackson RN - 03/02/2023 11:15 AM EDT Received a call from Rafaela at [facility], they are able to accept, pt agreeable. 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 [facility] at this time * Care Coordination - Ester Lipscomb - 03/02/2023 8:40 AM EDT Referral placed to SNF- [facility] via [facility] per TCC request. Await review and response regarding ability to accept. TCC notified. * Care Coordination - Laura Jackson RN - 03/02/2023 8:21 AM EDT Spoke with pt agreeable for referral to [facility], [facility] tasked to complete * Home Care - Tasneem Anaya LPN - 03/01/2023 4:25 PM EDT Grain Merchandiser following case for Discharge Needs. Therapy states SNF, but Patient wants HC instead. * Care Coordination - Laura Jackson RN - 03/01/2023 10:14 AM EDT Care Managment Initial Assessment Date: 03/01/2023 Patient Name: Radha Sandoval : 1945 Patient Information Source of Information: Patient Cognition/Language: WFL - Within Functional Limits Permission given to speak with patient fulfillment representative/caregiver as indicated: Yes Confirmation of Payer [...] Prescription Coverage: Yes Pharmacy Used: [facility] [place] Medication Management: Independent Transportation/Shopping: Independent Transportation Mode: [...] in SNF but would be able to [facility]. ROX[facility] liaison following, TCC to assist and follow as needed. Laura Jackson RN * Care Plan - Anaya Carr RN - 02/28/2023 6:10 PM EDT Problem: Pain - Adult Goal: Verbalizes/displays adequate comfort level or baseline comfort level Outcome: Progressing Problem: Safety - Adult Goal: Free from fall injury Outcome: Progressing documented in this encounterSWilson HealthLxrpao40-36-2449 Note* Care Coordination - Unknown Case Management - 03/03/2023 11:20 AM EDT Patient Choice Patient Name: RADHA SANDOVAL Date of : 1945 All Providers Sent Referral Name: [facility] Address: [address] [place], [place] [id number] Name: [facility] Address: [address] [place] [address] [facility] [id number] Note* Care Coordination - Laura Jackson RN - 03/03/2023 9:33 AM EDT Spoke with pt at bedside regarding POA, pt states she is not interested at this time to complete itand would consider completing at [facility] - did call Rafaela at [facility] to update her as well. [place] [id number] Note* Care Coordination - COLT Hill - 03/03/2023 8:41 AM EDT Transportation arranged through [facility] by cot set for 10 am steel pickler. Will notify RN and TCC of this in rounds. Notified patient's son via phone of transportation time. SW remains available if any other needs concerns arise. [facility] HospitalOemdbj91-98-8304 Note* Care Coordination - Laura Jackson RN - 03/03/2023 7:29 AM EDT Insurance auth obtained for [facility], updated Dr Finch notified via Sarbari. [facility] HospitalLfsprd59-84-3210 Note* Care Coordination - Laura Jackson RN - 03/02/2023 11:15 AM EDT Received a call from Rafaela at [facility], they are able to accept, pt agreeable. 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 [facility] at this time [facility] [id number] NoteHospitalist Progress Note 03/02/2023 [phone]: Please secure chat me for patient care issues. [phone]: Please secure chat [facility] Hospitalist for any issues. Subjective: Admit Date: 02/28/2023 PCP: Shiv Lopez MD Room#: B1-153/B1-153 A Interval History: Tolerating diet. Remains weak. Still urinating frequently. She denies chest pain, sob, cough, abdominal pain, nausea, vomiting, diarrhea, constipation, fevers, or chills. D/w pt Adult diet Regular; Low Sodium (2 gm); 4 carb choices (60 gm/meal) @UBYV4PSEOBC@ 24HR INTAKE/OUTPUT: No intake or output data [...] Information Primary Emergency Contact: Angel Roger Address: [address] [place] Relation: Child GABRIELLE FINCH MD Division of Hospitalist Medicine (more content not included)...[facility]09-14-2023 Note* Care Coordination - Ester Lipscomb - 03/02/2023 8:40 AM EDT [facility] T[facility] request. Await review and response regarding ability to accept. TCC notified. [facility] HospitalLydzxn56-81-4481 NoteRef[facility] placed [facility] TCC request. Await review and response regarding ability to accept. TCC notified. [facility]09-14-2023 Note* Care Coordination - Laura Jackson RN - 03/02/2023 8:21 AM EDT Spoke with pt agreeable for referral to [facility] snf and apostolic, COAL SCREENER tasked to complete [facility] [id number] NoteSpoke with pt agreeable for referral to [facility] snf and apostolic, COAL SCREENER tasked to complete [place] [id number] Note* Home Care - Tasneem Anaya LPN - 03/01/2023 4:25 PM EDT Grain Merchandiser following case for Discharge Needs. Therapy states SNF, but Patient wants HC instead. [facility] [id number] Consult note* Rosalinda Burrows APRN - JORGE - 03/01/2023 2:34 PM EDT Images from the original note were not included. [facility] Wound Care CONSULT Note Radha Sandoval AGE: [...] diabetes mellitus with hyperglycemia ([facility]) 01/16/2020 Morbidly obese ([facility]) 01/16/2020 Vitamin D deficiency 01/16/2020 Moderate [...] 12/07/2022 Performed by Avery Marshall DO at [facility] ENDOSCOPY EYE SURGERY Bilateral early 90's LUNG [...] tablet 0 ergocalciferol (Vitamin D-2) 1.25 MG (34540 UT) capsule Take 1 capsule (1.25 mg) [...] follow Please follow up at [facility] wound care center after hospital discharge. Thank [...] reflectmy own independent evaluation of this patient. [facility] HospitalAceryy54-53-1619 Consult note* ELSA Rosenbaum CNP - 03/01/2023 2:34 PM EDT Images from the original note were not included. [facility] Wound Care CONSULT Note Radha Sandoval AGE: [...] 12/07/2022 Performed by Avery Marshall DO at [facility] ENDOSCOPY EYE SURGERY Bilateral early 90's LUNG [...] tablet 0 ergocalciferol (Vitamin D-2) 1.25 MG (29665 UT) capsule Take 1 capsule (1.25 mg) [...] follow Please follow up at [facility] wound care [place] after hospital discharge. Thank you for the [...] from the original note were not included. [facility] Geriatric Medicine Inpatient Consult Service Admission Date: 02/28/2023 Admission Status: INPATIENT Chief Complaint: I couldn't get around and they directed me to the hospital because I was peeing constantly from that UTI. Reason for Appointment Geriatrics consulted for functional decline Assessment/Plan Principal Problem: LING (acute kidney injury) (CMS/HCC) ([facility]) Active Problems: Declining functional status Weakness [...] necessary I recommended follow up at our [facility] at [phone]. Call in 2 weeks for memory (re)testing once acute issue(s) resolve - order placed in [facility] for follow-up Other I deferred [...] accidents, getting lost. Knows she's here at [facility] due to UTI. States she was [...] Healthcare Power ofAttorney: No Financial Power of Receiving Room Clerk: No Living Will:No Code Status: DNRCCA - [...] 12/07/2022 Performed by Avery Marshall DO at [facility] ENDOSCOPY EYE SURGERY Bilateral early 90's LUNG [...] Limits Permission given to speak with patient fulfillment representative/caregiver as indicated: Yes Confirmation of Payer with patient/family: Yes Payer Name: [employer] [place] Pitcher: No Confirmation of Primary Care Physician: Confirmed [...] Prescription Coverage: Yes Pharmacy Used: [facility] [place] Medication Management: Independent Transportation/Shopping: Independent Transportation Mode: [...] recommendations communicated to primary service I used [employer] secure messaging to message Dr. Finch on 03/01/23 at 12:35 to notify that geriatrics consult note has been completed and to page or call my personal cell with any questions. * Michelle Valle RN - 03/01/2023 9:33 AM EDTAssociated Order(s): IP CONSULT TO SEPARATOR OPERATOR This patient is not a new diabetic or new to insulin therapy and therefore does not meet our current criteria for the inpatient diabetes education service. The clinical bedside RN should provide any necessary diabetes education using the Diabetes SurvivalSkills Booklet available on the unit. Please consider a dietary consult if appropriate and if not already ordered. Contact [facility] to [facility] pharmacist for assistance if a new glucometer or any associated supplies are needed. Thank you. Elder MUÑOZ,BSN,[facility] * Jelly Paz, 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[facility] - 03/01/2023 8:03 AM EDTAssociated Order(s): IP CONSULT TO ENDOCRINOLOGY Department of Internal Medicine Division of Endocrinology, Diabetes, & Metabolism Endocrinology Note Patient Name: Radha Sandoval : 1945 AGE: 77 y.o. Room/Bed: [facility]/[address] Admission Date: 02/28/2023 Visit Date: 03/01/2023 Reason for Endocrine Consult: DM-Uncontrolled Provider/Team Requesting Consult: Dr. Finch PCP: Shiv Lopez MD Outpt Sizing Sprayer: No ASSESSMENT: Type II diabetes with hyperglycemia, with longterm insulin use Postoperative hypothyroidism PLAN: Humalog 6 [...] diagnosis. She has been having diarrhea in [id number], smt severe Glimepiride- started in 2015 Trulicity [...] CHOLHDLRATIO 4 02/16/2021 No results found for: [id number] Lab Results Component Value Date TSH 0.03 (L) 02/27/2023 Radiology reportsas per the Radiologist Radiology: CT abdomen pelvis wo IV contrast Result Date: 02/28/2023 Patient Name: RADHA SANDOVAL : 1945 [facility]#: [id number] ExamDate/Time: 02/28/2023 13:07 Procedure: CT ABDOMEN PELVIS [...] 12/07/2022 Performed by Avery Marshall DO at [facility] ENDOSCOPY EYE SURGERY Bilateral early 90's LUNG [...] date of this note. documented in this [facility]09-13-2023 NoteHospitalist Progress Note 03/01/2023 1956-1983: Please secure chat me for patient care issues. [phone]: Please secure chat [facility] Hospitalist for any issues. Subjective: Admit Date: 02/28/2023 PCP: Shiv Lopez MD Room#: B1-153/B1-153 A Interval History: Feels better. Weak. Tolerating diet. Pain markedly improved. She denies chest pain, sob, cough, abdominal pain, nausea, vomiting, diarrhea, constipation, fevers, or chills. D/w pt and Geriatrics separately. Adult diet Regular; Low Sodium (2 gm); 4 carb choices (60 gm/meal) @[id number]@ 24HR INTAKE/OUTPUT: No intake or output data [...] Contact Information Primary Emergency (more content not included)...[facility] 03-01-2023 Hospital Discharge instructions* Discharge Instructions* [...] You can also try over the counter (FDC brand like Nature Made) melatonin 3mg at [...] Contact Information Primary Emergency Contact: KanaNicolahalinamario Address: [address] [place] Relation: Child Past Surgical History: Past Surgical History: Procedure Laterality Date APPENDECTOMY CHOLECYSTECTOMY 1979 COLONOSCOPY 06/19/2008 COLONOSCOPY W/ BIOPSIES AND POLYPECTOMY N/A 12/07/2022 Performed by Avery Marshall DO at [facility] ENDOSCOPY EYE SURGERY Bilateral early ' LUNG [...] List * (Principal) LING (acute kidney injury) ([facility]/HCC) (HCC) Diabetes mellitus due to underlying [...] assistance Toileting Minimal assistance Feeding Minimal assistance Pole Tester Minimal assistance Med Delivery yes Wound Care Documentation and Therapy: Wound/Incision 02/15/23 Pressure Injury Buttock Right;Midline (Active) Site Assessment Blanchable erythema;Clean;Dry;[place];Red 03/02/23 1100 Wound Length (cm) 1 cm [...] Score: @READMISSIONRISKDETAILS@ Discharging to Facility/ Agency Name: [place] [id number] Open 24 hours Dialysis Facility (if applicable) Name: Address: Dialysis Schedule: Phone: Fax: Cost Report Clerk/Soapstoner signature: ICIAN SECTION Prognosis: good Condition at Discharge: stable Rehab Potential (if transferring to Rehab): excellent Recommended Labs or Other Treatments After Discharge: BMP/CBC in one week. [facility] ac and hs Physician Certification: I certify the above information and transfer of Radha Sandoval is necessary for the continuing treatment of the diagnosis listed and that she requires senior care facility for less than 30 days. Update Admission H&P: No change in H&P PHYSICIAN SIGNATURE: documented in this [facility]09-13-2023 Consult note* Adam Holt MD - 03/01/2023 11:26 AM EDTAssociated Order(s): IP CONSULT TO GERIATRICS Images from the original note were not included. [facility] Geriatric Medicine Inpatient Consult Service Admission Date: 02/28/2023 Admission Status: INPATIENT Chief Complaint: I couldn't get around and they directed me to the hospital because I was peeing constantly from that UTI. Reason for Appointment Geriatrics consulted for functional decline Assessment/Plan Principal Problem: LING (acute kidney injury) (CMS/HCC) ([facility]) Active Problems: Declining functional status Weakness [...] necessary I recommended follow up at our [facility] at [phone]. Call in 2 weeks for memory (re)testing once acute issue(s) resolve - order placed in [facility] for follow-up Other I deferred [...] accidents, getting lost. Knows she's here at [facility] due to UTI. States she was [...] Healthcare Power ofAttorney: No Financial Power of Receiving Room Clerk: No Living Will:No Code Status: DNRCCA - [...] 12/07/2022 Performed by Avery Marshall DO at [facility] ENDOSCOPY EYE SURGERY Bilateral early 90's LUNG [...] Age of Onset Mental illness Mother GHANSHYAM OCLEY Depression Mother GHANSHYAM COLEY Heart disease Father [...] Limits Permission given to speak with patient fulfillment representative/caregiver as indicated: Yes Confirmation of Payer [...] Prescription Coverage: Yes Pharmacy Used: [facility] Medication Management: Independent Transportation/Shopping: Independent Transportation Mode: [...] recommendations communicated to primary service I used [employer] messaging to message Dr. Finch on 03/01/23 at 12:35 to notify that geriatrics consult note has been completed and to page or call my personal cell with any questions. [facility] HospitalIlxtag41-34-3650 Note* Care Coordination - Laura Jackson RN - 03/01/2023 10:14 AM EDT Care Managment Initial Assessment Date: 03/01/2023 Patient Name: Radha Sandoval : 1945 Patient Information Source of Information: Patient Cognition/Language: WFL - Within Functional Limits Permission given to speak with patient fulfillment representative/caregiver as indicated: Yes Confirmation of Payer [...] Prescription Coverage: Yes Pharmacy Used: [facility] Medication Management: Independent Transportation/Shopping: Independent Transportation Mode: [...] and follow as needed. Laura Jackson RN [facility] HospitalVtxvac28-91-4036 Consult note* Michelle Valle RN - 03/01/2023 9:33 AM EDT Associated Order(s): IP CONSULT TO SEPARATOR OPERATOR This patient is not a new diabetic or new to insulin therapy and therefore does not meet our current criteria for the inpatient diabetes education service. The clinical bedside RN should provide any necessary diabetes education using the Diabetes SurvivalSkills Booklet available on the unit. Please consider a dietary consult if appropriate and if not already ordered. Contact [facility] pharmacist for assistance if a new glucometer or any associated supplies are needed. Thank you. Elder MUÑOZ,BSN,[facility] HospitalPdkpjh94-37-9173 Consult note* Jelly Paz, 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[employer] - 03/01/2023 8:03 AM EDTAssociated Order(s): IP CONSULT TO ENDOCRINOLOGY Department of Internal Medicine Division of Endocrinology, Diabetes, & Metabolism Endocrinology Note Patient Name: Radha Sandoval : 1945 AGE: 77 y.o. Room[facility]Bed: [facility] A Admission Date: 02/28/2023 Visit Date: 03/01/2023 Reason for Endocrine Consult: DM-Uncontrolled Provider/Team Requesting Consult: Dr. Finch PCP: Shiv Lopez MD Outpt Sizing Sprayer: No ASSESSMENT: Type II diabetes with hyperglycemia, with longterm insulin use Postoperative hypothyroidism PLAN: Humalog 6 [...] diagnosis. She has been having diarrhea in 8392-1782, smt severe Glimepiride- started in 2015 Trulicity [...] CHOLHDLRATIO 4 02/16/2021 No results found for: [id number] Lab Results Component Value Date TSH 0.03 (L) 02/27/2023 Radiology reportsas per the Radiologist Radiology: CT abdomen pelvis wo IV contrast Result Date: 02/28/2023 Patient Name: RADHA SANDOVAL : 1945 [facility]#: [id number] ExamDate/Time: 02/28/2023 13:07 Procedure: CT ABDOMEN PELVIS [...] 12/07/2022 Performed by Avery Marshall DO at [facility] ENDOSCOPY EYE SURGERY Bilateral early 90' LUNG [...] state/prognosis on the date of this note. [facility] HospitalSvwivo01-21-7146 NoteProblem: Pain - Adult Goal: Verbalizes/displays adequate comfort level or baseline comfort level Outcome: Progressing Problem: Safety - Adult Goal: Free from fall injury Out[facility]: [facility] Plan of care note* Care Plan - Anaya Carr RN - 02/28/2023 6:10 PM EDT Problem: Pain - Adult Goal: Verbalizes/displays adequate comfort level or baseline comfort level Outcome: Progressing Problem: Safety - Adult Goal: Free from fall injury Outcome: Progressing [facility] HospitalNczewg47-30-7211 History and physical note* Gabrielle Finch MD [...] 12/07/2022 Performed by Avery Marshall DO at [facility] ENDOSCOPY EYE SURGERY Bilateral early 90's LUNG [...] None Comment: W/ UNTIL HIS ADMITTANCE TO [facility] Other Topics Concern Not on file Social [...] tablet 0 ergocalciferol (Vitamin D-2) 1.25 MG (05983 UT) capsule Take 1 capsule (1.25 mg) [...] Primary Emergency Contact: Angel Roger Address: [address] [place] Relation: Child Code status: Prior [...] H&P to the patient's PCP. Thank you. [facility] HospitalDasejd69-18-9042 NoteAttending History and Physical Admit Date: 02/28/2023 [...] 12/07/2022 Performed by Avery Marshall DO at [facility] ENDOSCOPY EYE SURGERY Bilateral early 90's LUNG [...] None Comment: W/ UNTIL HIS ADMITTANCE TO [facility] Other Topics Concern Not on file Social [...] tablet 0 ergocalciferol (Vitamin D-2) 1.25 MG (85386 UT) capsule Take 1 capsule (1.25 mg) [...] (150 mcg) by m (more content not included)...[facility]09-12-2023 History and physical note* Gabrielle Finch [...] 12/07/2022 Performed by Avery Marshall DO at [facility] ENDOSCOPY EYE SURGERY Bilateral early 90's LUNG [...] None Comment: W/ UNTIL HIS ADMITTANCE TO [facility] Other Topics Concern Not on file Social [...] tablet 0 ergocalciferol (Vitamin D-2) 1.25 MG (50747 UT) capsule Take 1 capsule (1.25 mg) [...] Primary Emergency Contact: Angel Roger Address: [address] [place] Relation: Child Code status: Prior [...] patient's PCP. Thank you. documented in this [facility]09-12-2023 Emergency department Note* Tasneem Whaley MD - 02/28/2023 11:28 AM EDT [facility] MED SURG EMERGENCY DEPARTMENT ENCOUNTER Pt Name: [...] 12/07/2022 Performed by Avery Marshall DO at [facility] ENDOSCOPY EYE SURGERY Bilateral early 90' LUNG [...] shoulder pain ergocalciferol (Vitamin D-2) 1.25 MG (52133 UT) capsule Take 1 capsule (1.25 mg) [...] None Comment: W/ UNTIL HIS ADMITTANCE TO [facility] Social Determinants of Health Financial Resource Strain: [...] min Stress: No Stress Concern Present (02/28/2023) [employer] [place] [employer] - Occupational Stress Questionnaire [...] (acute kidney injury) (CMS/HCC) ([facility]): complicated acute illness or injury Pyelonephritis: [...] 03/02/23 0025 Pyelonephritis LING (acute kidney injury) ([facility]) ([facility]) CONSULTS: IP CONSULT TO ENDOCRINOLOGY IP CONSULT TO GERIATRICS IP CONSULT TO SEPARATOR OPERATOR PHARMACY TO CONSULT INSOMNIA PROCEDURES: Unless otherwise noted below, none Procedures FINAL IMPRESSION 1. LING (acute kidney injury) ([facility]) ([facility]) 2. Pyelonephritis 3. Polypharmacy 4. Insomnia, unspecified type 5. Pressure ulcer of right buttock, stage [address] ([facility]) DISPOSITION/PLAN DISPOSITION Admit 02/28/2023 03:42:32 PM PATIENT REFERRED TO: [facility] Geriatrics [facility] [address] [facility] [address] [facility] [address] DISCHARGE MEDICATIONS: Current Discharge Medication List @[facility]([id number]:LAST:1)@ (Please note: Portions of this note were [...] urination. Was recently admitted. documented in this [facility]09-12-2023 Emergency department Triage note* Farrah Londono RN - 02/28/2023 11:28 AM EDT Pt presents for admission per her PCP. Was sent to get kidneys evaluated per pt. Pt endorses lower back pain and burning and pain with urination. Was recently admitted. [facility] HospitalIyqtzk12-26-8987 Physician Emergency department Note* Tasneem Whaley MD - 02/28/2023 11:28 AM EDT [facility] 1E MED SURG EMERGENCY DEPARTMENT ENCOUNTER Pt [...] 12/07/2022 Performed by Avery Marshall DO at [facility] ENDOSCOPY EYE SURGERY Bilateral early 90's LUNG [...] shoulder pain ergocalciferol (Vitamin D-2) 1.25 MG (07426 UT) capsule Take 1 capsule (1.25 mg) [...] None Comment: W/ UNTIL [facility]ITTANCE TO [facility] Social Determinants of Health Financial Resource Strain: [...] min Stress: No Stress Concern Present (02/28/2023) [employer] [place] [employer] - Occupational Stress Questionnaire [...] (acute kidney injury) (CMS/HCC) ([facility]): complicated acute illness or injury Pyelonephritis: [...] 03/02/23 0025 Pyelonephritis LING (acute kidney injury) ([facility]) ([facility]) CONSULTS: IP CONSULT TO ENDOCRINOLOGY IP CONSULT TO GERIATRICS IP CONSULT TO SEPARATOR OPERATOR PHARMACY TO CONSULT INSOMNIA PROCEDURES: Unless otherwise noted below, none Procedures FINAL IMPRESSION 1. LING (acute kidney injury) ([facility]) ([facility]) 2. Pyelonephritis 3. Polypharmacy 4. Insomnia, unspecified type 5. Pressure ulcer of right buttock, stage [address] ([facility]) DISPOSITION/PLAN DISPOSITION Admit 02/28/2023 03:42:32 PM PATIENT REFERRED TO: [facility] Geriatrics [address] [facility] [address] [place] [address] DISCHARGE MEDICATIONS: Current Discharge Medication List @[facility]([id number]:LAST:1)@ (Please note: Portions of this note were completed with a voice recognition program. Efforts were made to edit the dictations but occasionally words and phrases are mis-transcribed.) Form v2016.J.[id number] Tasneem Whaley MD (electronically signed) Emergency Medicine Provider Tasneem Whaley MD 03/02/23 0025 [facility] HospitalLvdfiw95-13-3986 Telephone encounter Note* Telephone Encounter - ELSA Arriaza CNP - 02/28/2023 8:30 AM EDT Noted. Patient already notified. See previous TE if needed. [facility] HospitalJdnjsm66-34-1446 Miscellaneous Notes* Telephone Encounter - ELSA Arriaza CNP - 02/28/2023 8:30 AM EDT Noted. Patient already notified. See previous TE if needed. * Telephone Encounter - Imelda Mann RN - 02/28/2023 7:15 AM EDT S: Christine from [facility] lab [phone] spoke with CAC nurse regarding critical lab [...] results Protocols used: PCP Call - No Cfsosi-ANSAJ-TF documented in this encounterSWilson HealthOlngoc37-88-2360 Telephone encounter Note* Telephone Encounter - Imelda Mann RN - 02/28/2023 7:15 AM EDT S: Christine from [facility] lab [phone] spoke with CAC nurse regarding critical lab [...] results Protocols used: PCP Call - No Kitczz-CJCEL-GN [facility] HospitalVdzdbt77-39-9911 Evaluation + Plan note* Assessment & Plan Note - ELSA Arriaza CNP - 02/27/2023 5:18 PM EDTAssociated Problem(s): Diarrhea No fever or chills, abdomen soft. Unknown etiology. Will check CBC and CMP. Consider stool culture if symptoms continue [facility] HospitalDolebt77-68-0389 Miscellaneous Notes* Assessment & Plan Note - [...] infection we will treat documented in this encounterSWilson HealthSxyiro22-90-0181 Evaluation + Plan note* Assessment & Plan Note - ELSA Arriaza CNP - 02/27/2023 5:17 PM EDTAssociated Problem(s): Chronic renal insufficiency, stage III (moderate) ([facility]) We will check CMP today [facility] HospitalGoryeh54-36-9120 Evaluation + Plan note* Assessment & Plan Note - ELSA Arriaza CNP - 02/27/2023 5:17 PM EDTAssociated Problem(s): Acute cystitis with hematuria UA positive nitrites and leuks moderate blood, will start antibiotic therapy sent for culture [facility] HospitalImtrcn58-77-8407 Evaluation + Plan note* Assessment & Plan Note - ELSA Arriaza CNP - 02/27/2023 5:17 PM EDTAssociated Problem(s): Hypertension Controlled. Continue amlodipine 10 mg daily and lisinopril 40 mg daily [facility] HospitalOyftfi63-44-1838 Evaluation + Plan note* Assessment & Plan Note - ELSA Arriaza CNP - 02/27/2023 5:16 PM EDTAssociated Problem(s): Hypothyroidism Will check TSH today due to recent fatigue [facility] HospitalIftiyo45-27-2355 Evaluation + Plan note* Assessment & Plan Note - ELSA Arriaza CNP - 02/27/2023 5:15 PM EDTAssociated Problem(s): Wound of right buttock Patient has not followed up with wound center upon visualization today wound unchanged, advised to keep area as clean as possible with frequent changes of incontinence pads [facility] HospitalScaevf29-61-0518 Evaluation + Plan note* Assessment & Plan Note - ELSA Arriaza CNP - 02/27/2023 5:14 PM EDTAssociated Problem(s): 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 Patient having difficulties with compliance. Continue insulin regimen. Possible increased glucose due to urinary tract infection we will treat [facility] HospitalZlpkle65-96-6970 History of Present illness Narrative* Magda Lomas - 02/27/2023 2:20 PM EDT Patient was identified by name and Date of . POCT glucose at 494-provider notified. * Katia Granados, 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[employer] - 02/27/2023 2:20 PM EDT Images from [...] her blood sugar today, noted In office jquvw-zy-vvdl testing 494. Urination Increased frequency, dysuria intermittently. [...] out soon. Has Maximino (son) work in Osteoplastics. He may be able to help her [...] Lopez MD ergocalciferol (Vitamin D-2) 1.25 MG (21073 UT) capsule Take 1 capsule (1.25 mg) [...] CNP 02/27/2023 5:19 PM documented in this encounterSWilson HealthLwroxi69-07-2233 Evaluation note* Diagnosis Diabetes mellitus due to [...] Diarrhea, unspecified type documented in this encounter [facility] HospitalKmgzss15-02-6180 Telephone encounter Note* Telephone Encounter - Nan [...] seen Protocols used: Diabetes - High Blood Hcdkr-UCTXB-TG [facility] HospitalDonodr91-86-4090 Miscellaneous Notes* Telephone Encounter - Nan Bush [...] seen Protocols used: Diabetes - High Blood Deeop-BHRMA-ZX documented in this [facility]08-30-2023 Hospital Discharge instructions* Patient Instructions* Tejal Henry RN - 02/15/2023 12:45 PM EDT Return in [address] Magallanes If you have any questions or concerns, please call our wound center at [phone] or [phone]. Offloading Try to avoid pressure and sheering [...] to help improve healing. documented in this [facility]08-30-2023 [facility] Care Visit - New Patient Progress [...] 12/07/2022 Performed by Avery Marshall DO at [facility] ENDOSCOPY EYE SURGERY Bilateral early LUNG REMOVAL, [...] Rfl: 0 ergocalciferol (Vitamin D-2) 1.25 MG (58076 UT) capsule, Take 1 capsule (1.25 mg) [...] None Comment: W/ UNTIL HIS ADMITTANCE TO [facility] Other Topics Concern Not on file Social [...] Blood Pressure Father LATHA (more content not included)...[facility]08-22-2023 Evaluation + Plan note* Assessment & Plan Note - ELSA Arriaza CNP - 02/07/2023 12:51 PM EDTAssociated Problem(s): Chronic left shoulder pain Chronic. Refill mobic. [facility] HospitalZfjcyp37-64-4178 Evaluation + Plan note* Assessment & Plan Note - ELSA Arriaza CNP - 02/07/2023 12:51 PM EDTAssociated Problem(s): Wound of right buttock Avoid pressure to area, avoid friction, keep area as dry as possible. Refer to wound clinic. [facility] HospitalMylrpu36-50-3351 Miscellaneous Notes* Assessment & Plan Note - ELSA Arriaza CNP - 02/07/2023 12:51 PM EDTAssociated Problem(s): Chronic left shoulder pain Chronic. Refill mobic. * Assessment & Plan Note - ELSA Arriaza CNP - 02/07/2023 12:51 PM EDTAssociated Problem(s): Wound of right buttock Avoid pressure to area, avoid friction, keep area as dry as possible. Refer to wound clinic. documented in this [facility]08-22-2023 History of Present illness Narrative* ELSA Arriaza [...] Arriaza CNP ergocalciferol (Vitamin D-2) 1.25 MG (34074 UT) capsule Take 1 capsule (1.25 mg) [...] VERIFIED WITH PATIENT-BRENDA RIVERA. documented in this encounterSWilson HealthMcjnjm22-43-5074 Telephone encounter Note* Telephone Encounter - Betty Gonzalez MA - 01/25/2023 3:01 PM EDT Patient notified. [facility] HospitalNhrlbd51-64-8797 Miscellaneous Notes* Telephone Encounter - Betty Gonzalez [...] EDT S: The patient is calling the [facility] About muscle spasms B: She has [...] days Protocols used: Muscle Aches and Body Uwzt-CIUGR-KR documented in this [facility]08-09-2023 Telephone encounter Note* Telephone Encounter - Shiv Lopez MD - 01/25/2023 2:39 PM EDT If the muscle spasms got worse with the muscle relaxer stop the muscle relaxer, I am not sure what else we can do especially if they have been going on for years. We could try quinine. [facility] HospitalYjbjde83-65-3203 Telephone encounter Note* Telephone Encounter - Colette Poole RN - 01/25/2023 1:23 PM EDT S: The patient is calling the [facility] About muscle spasms B: She has [...] days Protocols used: Muscle Aches and Body Zyld-UCPOP-XL [facility] HospitalFmmnoy41-68-3087 Telephone encounter Note* Telephone Encounter - ELSA Arriaza CNP - 01/13/2023 11:12 AM EDT Reviewed chart. Refill appropriate. RX sent. [facility] HospitalHmsbfb20-12-9020 Miscellaneous Notes* Telephone Encounter - ELSA Arriaza [...] 12/08/22, vit D 07/18/2022 documented in this encounterSWilson HealthBqfsju66-85-3246 Telephone encounter Note* Telephone Encounter - Mya Foster MA - 01/13/2023 8:52 AM EDT Prescription Request: Last medication check: 10/25/2022 Last physical exam: 04/26/2022 Last completed appointment: 12/13/22 Next scheduled appointment: 01/25/2023 Last date of refill on this medication: Mirapex 12/13/22, baclofen and synthroid 12/08/22, vit D 07/18/2022 [facility] HospitalDkfogx89-01-5253 Telephone encounter Note* Telephone Encounter - ELSA Arriaza CNP - 12/08/2022 5:20 PM EDT Reviewed chart. Refill appropriate. RX sent. [facility] HospitalBbqwmb06-66-2366 Miscellaneous Notes* Telephone Encounter - ELSA Arriaza [...] 90 day 1 refill documented in this encounterSWilson HealthFoihfi39-37-9085 Telephone encounter Note* Telephone Encounter - Syl Kumar MA - 12/08/2022 1:53 PM EDT Prescription Request: Last medication check: 10/25/22 Last physical exam: 04/26/22 Next scheduled appointment: 01/25/23 CSA on file (date): 02/02/22 Last urine drug screen: none Last date of refill on this medication Baclofen 10/04/22 30 tablets no refill Levothyroxine 10/04/22 30 day 1 refill Crestor 06/14/22 90 day 1 refill [facility] HospitalRdujli32-54-7486 Plan of care note* Care Plan - [...] integrity is maintained or improved Outcome: Completed [place] [address]Utwaxz52-40-8812 Miscellaneous Notes* Care Plan - Labmert Kaur RN - 12/07/2022 2:51 PM EDT [...] Please call the Main Endoscopy Dept at [phone] for questions. * Op Note - Avery Marshall DO - 12/07/2022 7:48 AM EDT [facility] Name: Radha Sandoval Procedure Date: 12/07/2022 7:48 AM Gender: Female Date of : 1945 Age: 77 Admit Type: Inpatient Note Status: Finalized Endoscopist: Avery Marshall DO, [id number] Procedure: Colonoscopy Indications: Hematochezia Findings: The perianal [...] immediate complications. Procedure Code(s): --- Professional --- 83929, Colonoscopy, flexible; with removal of tumor(s), polyp(s), or other lesion(s) by snare technique --- Technical --- 32852, Colonoscopy, flexible; with removal of tumor(s), polyp(s), [...] or abscess without bleeding CPT copyright 2021 [employer]. All rights reserved. The codes documented in this report are preliminary and upon busboy review may be revised to meet current [...] Limits Permission given to speak with patient fulfillment representative/caregiver as indicated: Yes Confirmation of Payer [...] Prescription Coverage: Yes Pharmacy Used: [facility] Medication Management: Independent Transportation/Shopping: Independent Transportation Mode: [...] needed. Laura Jackson RN documented in this [facility]06-21-2023 Hospital Discharge instructions* Discharge Instr - Activity* Gabrielle Finch MD - 12/07/2022 1:48 PM EDT As tolerated * Discharge Instr - Diet* Gabrielle Finch MD - 12/07/2022 1:49 PM EDT Carb control diet documented in this [facility]06-[facility]-2023 Hospital course Narrative* Gabrielle Finch MD - 12/07/2022 1:30 PM EDT Seen and examined. Full note to follow documented in this [facility]06-21-2023 Note* Care Coordination - Laura Jackson RN [...] Stay (Days): 2 GMLOS: No GMLOS Documented [address]Xautoe77-09-2290 Note* Care Coordination - Laura Jackson RN [...] Expected Date/Time Set By Reviewed At 12/08/2022 aLura Jackson RN 12/07/2022 7:39 AM cscope today 12/08/2022 Laura Jackson RN 12/06/2022 8:22 AM 12/08/2022 ANASTASIA Molina 12/06/2022 12:49 AM 12/08/2022 ANASTASIA Molina 12/05/2022 4:29 PM Length of Stay (Days): 2 GMLOS: No GMLOS Documented [facility] HospitalAlfuki83-16-8429 Note* Perioperative Nursing Note - Ashley Dickens RN - 12/07/2022 9:57 AM EDT POST ENDOSCOPY PROCEDURE TRANSFER REPORT Physician: Dr. Marshall Procedure completed: colonoscopy Specimens obtained: Yes Medications administered: See MAR Findings: see MD report Complications: none Please call the Main Endoscopy Dept at [phone] for questions. T [facility] HospitalRtzkal36-50-8857 Note* Perioperative Nursing Note - Ashley Dickens RN - 12/07/2022 9:57 AM EDT POST ENDOSCOPY PROCEDURE TRANSFER REPORT Physician: Dr. Gellis Procedure completed: colonoscopy Specimens obtained: Yes Medications administered: See MAR Findings: see MD report Complications: none Please call the Main Endoscopy Dept at [phone] for questions. [facility] HospitalRytmod63-96-2785 History of Present illness Narrative* Edelmira Hanna - 12/07/2022 7:58 AM EDT Patient has been NPO/ CLRS x3 days without adequate nutrition. Patient referred to RD. * Lani Che PICKLING MACHINE OPERATOR - 12/06/2022 5:38 PM EDT [facility] Respiratory Care Department Progress Note As [...] were not included. Hospitalist Progress Note 12/06/2022 [phone]: Please secure chat me for patient care issues. [phone]: Please secure chat [facility] Hospitalist for any issues. Subjective: Admit Date: 12/05/2022 PCP: Shiv Lopez MD Room#: [facility]148/[facility] A Interval History: She is weak. Still with bleeding. Not dizzy. She denies chest pain, sob, abdominal pain, nausea, vomiting, diarrhea, constipation, fevers, or chills. Awaiting colonoscopy. D/w pt Adult diet Clear Liquid NPO diet NPO except: Sips of Water with Meds @[id number]@ 24HR INTAKE/OUTPUT: Intake/Output Summary (Last 24 hours) [...] Information Primary Emergency Contact: Angel Roger Address: [address] [place] Relation: Child GABRIELLE FINCH MD Division of Hospitalist Medicine MessageParty [facility] PAGER: Epic chat documented in this [facility]06-21-2023 Note* Op Note - Avery Marshall DO - 12/07/2022 7:48 AM EDT [facility] Patient Name: Radha Sandoval Procedure Date: 12/07/2022 7:48 AM Gender: Female Date of : 1945 Age: 77 Admit Type: Inpatient Note Status: Finalized Endoscopist: Avery Marshall DO, [id number] Procedure: Colonoscopy Indications: Hematochezia Findings: The perianal [...] immediate complications. Procedure Code(s): --- Professional --- 41932, Colonoscopy, flexible; with removal of tumor(s), polyp(s), or other lesion(s) by snare technique --- Technical --- 54112, Colonoscopy, flexible; with removal of tumor(s), polyp(s), [...] or abscess without bleeding CPT copyright 2021 [employer]. All rights reserved. The codes documented in this report are preliminary and upon busboy review may be revised to meet current compliance requirements. Attending Participation: I personally performed the entire procedure. Avery Marshall DO 12/07/2022 9:46:22 AM This report has been signed electronically. Number of Addenda: 0 Note Initiated On: 12/07/2022 7:48 AM [employer] Phone: 1(307) 243-813406-21-2023 Note* Op Note - Avery Marshall DO - 12/07/2022 7:48 AM EDT [facility] Name[facility] Radha Sandoval Procedure Date: 12/07/2022 7:48 AM Gender: Female Date of : 1945 Age: 77 Admit Type: Inpatient Note Status: Finalized Endoscopist: Avery Marshall DO, [id number] Procedure: Colonoscopy Indications: Hematochezia Findings: The perianal [...] immediate complications. Procedure Code(s): --- Professional --- 83861, Colonoscopy, flexible; with removal of tumor(s), polyp(s), or other lesion(s) by snare technique --- Technical --- 51618, Colonoscopy, flexible; with removal of tumor(s), polyp(s), [...] or abscess without bleeding CPT copyright 2021 [employer]. All rights reserved. The codes documented in this report are preliminary and upon busboy review may be revised to meet current compliance requirements. Attending Participation: I personally performed the entire procedure. Avery Marshall DO 12/07/2022 9:46:22 AM This report has been signed electronically. Number of Addenda: 0 Note Initiated On: 12/07/2022 7:48 AM [employer] Phone: 1(946) 283-109206-20-2023 Note* Care Coordination - Laura Jackson RN - 12/06/2022 10:36 AM EDT Care Managment Initial Assessment Date: 12/06/2022 Patient Name: Radha Sandoval : 1945 Patient Information Source of Information: Patient Cognition/Language: WFL - Within Functional Limits Permission given to speak with patient fulfillment representative/caregiver as indicated: Yes Confirmation of Payer [...] Prescription Coverage: Yes Pharmacy Used: [facility] Medication Management: Independent Transportation/Shopping: Independent Transportation Mode: [...] and follow as needed. Laura Jackson RN [facility]im69-80-8058 Note* Care Coordination - Laura Jackson RN - 12/06/2022 10:36 AM EDT Care Managment Initial Assessment Date: 12/06/2022 Patient Name: Radha Sandoval : 1945 Patient Information Source of Information: Patient Cognition/Language: WFL - Within Functional Limits Permission given to speak with patient fulfillment representative/caregiver as indicated: Yes Confirmation of Payer [...] Prescription Coverage: Yes Pharmacy Used: [facility] Medication Management: Independent Transportation/Shopping: Independent Transportation Mode: [...] follow as needed. Laura Jackson RN T [facility]Mrxpqt35-42-9688 Consult note* Malcolm Rodriguez MD - 12/06/2022 [...] Arriaza CNP ergocalciferol (Vitamin D-2) 1.25 MG (37407 UT) capsule Take 1 capsule (1.25 mg) [...] the patient/guardian/responsible accompanying adult who is agreeable. [facility] [employer] Phone: [phone]) 667-281006-20-2023 Consult note* Malcolm Rodriguez MD - 12/06/2022 [...] Wesley CNP ergocalciferol (Vitamin D-2) 1.25 MG (99154 UT) capsule Take 1 capsule (1.25 mg) [...] adult who is agreeable. documented in this [facility]06-19-20[facility] Emergency department Note* Abby Kahn RN - 12/05/2022 8:30 PM EDT Provided pt with water and jello Abby Herstine, RN 12/05/222200 [facility]Yynooo85-29-5792 Emergency department Note* Abby Kahn RN - [...] IV that was placed in R AC. APPOINTMENT SETTER called to place a new IV Abby aKhn RN 12/05/22 1403 * ANASTASIA Molina - 12/05/2022 10:43 AM EDT [facility] ED eMERGENCY dEPARTMENT eNCOUnter Pt Name: Radha [...] mouth daily. ERGOCALCIFEROL (VITAMIN D-2) 1.25 MG (40246 UT) CAPSULE Take 1 capsule (1.25 mg) [...] None Comment: W/ UNTIL HIS ADMITTANCE TO [facility] Social Determinants of Health Financial Resource Strain: [...] (*) Narrative: Performed by: [facility], [address] [place] [address] [place] [address] CLIA ID: [id number] HEPATIC FUNCTION PANEL - Normal BILIRUBIN, TOTAL [...] MEDICATIONS: New Prescriptions No medications on file @[facility]([id number]:LAST:1)@ (Please note: Portions of this note were completed with a voice recognition program. Efforts were made to edit thedictations but occasionally words and phrases are mis-transcribed.) Form v2016.J.5-cn ANASTASIA MOLINA (electronically signed) Emergency Medicine Provider ANASTASIA Molina 12/05/22 1748 * Anusha Velarde MD - 12/05/2022 10:43 AM EDT Emergency Department Encounter [facility] Patient: Radha Sandoval : 1945 Date [...] hx of GI bleed. documented in this [facility] Nurse Note* Sis Archibald RN - 12/05/2022 8:[address] Durbin requesting 18g U/S IV placed d/t GIB. No suitable options for an 18g PIV to be placed at this time. Pt also refusing for Left arm to be used. Dr. Hammer notified. [place] [address]Kiigjp49-57-7327 Nurse Note* Sis Archibald RN - 12/05/2022 8:[address] Durbin requesting 18g U/S IV placed d/t GIB. No suitable options for an 18g PIV to be placed at this time. Pt also refusing for Left arm to be used. Dr. Hammer notified. documented in this [facility] Emergency department Note* Abby Kahn RN - 12/05/2022 6:[address] Velarde notified pt has filled x 3 bedpan with bloody stools and clots Abby Kahn RN 12/05/22 1812 [address]blbdf89-22-8086 Emergency department Note* Abby Kahn RN - 12/05/2022 5:10 PM EDT Ashley (ANASTASIA) made aware that pt has had 2 large bloody BM's at this point Abby Kahn RN 12/05/22 1733 [address]Dzxdab22-55-0095 History and physical note* Bertram Durbin MD [...] None Comment: W/ UNTIL [facility] ADMITTANCE TO [facility] Other Topics Concern Not on file Social [...] tablet 0 ergocalciferol (Vitamin D-2) 1.25 MG (20196 UT) capsule Take 1 capsule (1.25 mg) [...] Information Primary Emergency Contact: Angel Roger Address: [address] [place] Relation: Child Code [...] H&P to the patient's PCP. Thank you. [employer] Phone: [phone] History and physical note* Bertram Durbin MD [...] None Comment: W/ UNTIL [facility] ADMITTANCE TO [facility] Other Topics Concern Not on file Social [...] tablet 0 ergocalciferol (Vitamin D-2) 1.25 MG (70734 UT) capsule Take 1 capsule (1.25 mg) [...] Primary Emergency Contact: Angel Roger Address: [address] [place] Relation: Child Code status: No [...] patient's PCP. Thank you. documented in this [facility] Emergency department Note* Abby Kahn RN - 12/05/2022 4:58 PM EDT Pt had large bloody BM Abby Kahn RN 12/05/22 7388 [facility]Xduqxr06-68-2836 Emergency department Note* Abby Kahn RN - 12/05/2022 2:[address] stated they were unable to use US IV that was placed in R AC. APPOINTMENT SETTER called to place a new IV Abby Kahn RN 12/05/22 1403 [facility]Lbjhqk39-10-1597 Emergency department Triage note* Maday Borja RN - 12/05/2022 10:43 AM EDT Pt reports bright red blood with blood clots in her brief this AM, denies use of blood thinners or hx of GI bleed. [facility] HospitalZxllfz59-59-7367 Physician Emergency department Note* ANASTASIA Molina - 12/05/2022 10:43 AM EDT [facility] ED eMERGENCY dEPARTMENT eNCOUnter Pt Name: Radha [...] mouth daily. ERGOCALCIFEROL (VITAMIN D-2) 1.25 MG (42712 UT) CAPSULE Take 1 capsule (1.25 mg) [...] None Comment: W/ UNTIL [facility] ADMITTANCE TO [facility] Social Determinants of Health Financial Resource Strain: [...] 215 (*) Narrative: Performed by: [facility], [address] [place] [id number] CLIA ID: [id number] HEPATIC FUNCTION PANEL - Normal BILIRUBIN, TOTAL [...] MEDICATIONS: New Prescriptions No medications on file @[facility](1333,[id number]:LAST:1)@ (Please note: Portions of this note were completed with a voice recognition program. Efforts were made to edit thedictations but occasionally words and phrases are mis-transcribed.) Form v2016.J.[id number] ANASTASIA MOLINA (electronically signed) Emergency Medicine Provider ANASTASIA Molina 12/05/22 1748 [facility]Zulplv95-09-6443 Physician Emergency department Note* Anusha Velarde MD - 12/05/2022 10:43 AM EDT Emergency Department Encounter [facility] Patient: Radha Sandoval : 1945 Date [...] Huerta MD 12/05/221637 Anusha Velarde MD 12/05/221851 [employer] Phone: [phone] Telephone encounter Note* Telephone Encounter - ELSA Arriaza CNP - 12/05/2022 9:44 AM EDT Noted. Agree with disposition. [facility] HospitalHbuktz03-33-2075 Miscellaneous Notes* Telephone Encounter - ELSA Arriaza [...] drive her, states she will go to [facility]. No further needs at this time. Patient instructed to call back with new or worsening symptoms. Advised to call 911 if she worsens or feels like she might pass out. Patient verbalizes understanding. Reason for Disposition SEVERE rectal bleeding (large blood clots; constant or on and off bleeding) Protocols used: Rectal Wbuksytg-XPKJD-AE documented in this encounterSWilson HealthFlupaq21-95-8637 Telephone encounter Note* Telephone Encounter - Sruthi [...] drive her, states she will go to [facility]. No further needs at this time. Patient instructed to call back with new or worsening symptoms. Advised to call 911 if she worsens or feels like she might pass out. Patient verbalizes understanding. Reason for Disposition SEVERE rectal bleeding (large blood clots; constant or on and off bleeding) Protocols used: Rectal Jgafzsgf-NBMZR-RX [facility] HospitalIobswx68-98-5805 Telephone encounter Note* Telephone Encounter - Mya Foster MA - 10/05/2022 3:55 PM EDT ----- Message from ELSA Arriaza CNP sent at 10/05/2022 3:52 PM EDT ----- Hemoglobin A1c 9- recommend increasing novolog dose by 2 units- (from 14 to 16), send glucose readings to office in 1 week. Notified, can you please update sig? Thanks! [facility] HospitalFbilgs78-69-8772 Miscellaneous Notes* Telephone Encounter - Mya Foster MA - 10/05/2022 3:55 PM EDT ----- Message from ELSA Arriaza CNP sent at 10/05/2022 3:52 PM EDT ----- Hemoglobin A1c 9- recommend increasing novolog dose by 2 units- (from 14 to 16), send glucose readings to office in 1 week. Notified, can you please update sig? Thanks! documented in this [facility]02-24-2023 Telephone encounter Note* Telephone Encounter - Stefani [...] prior to picking up the medication: Yes [facility] HospitalIrhvlg86-39-4394 Miscellaneous Notes* Telephone Encounter - Stefani Abraham [...] up the medication: Yes documented in this [facility]02-07-2023 Telephone encounter Note* Telephone Encounter - Shiv Lopez MD - 07/26/2022 8:29 AM EST Rx sent [facility] HospitalFiznez83-06-1837 Miscellaneous Notes* Telephone Encounter - Shiv Lopez [...] (see medication tab): 05/03/2022 documented in this encounterSWilson HealthQfbdef39-75-4985 Note* Addendum Note - Mya Foster MA - 07/26/2022 7:57 AM ESTAddended by: MYA FOSTER on: 07/26/2022 07:57 AM Modules accepted: Orders [facility] HospitalYyacvv53-83-6862 Note* Addendum Note - Mya Foster MA - 07/26/2022 7:57 AM ESTAddended by: MYA FOSTER on: 07/26/2022 07:57 AM Modules accepted: Orders [facility] HospitalSevtff83-06-2396 Telephone encounter Note* Telephone Encounter - Georgette [...] of last refill (see medication tab): 05/03/2022 [facility] HospitalMwfhji92-74-0548 Telephone encounter Note* Telephone Encounter - ELSA Arriaza CNP - 07/18/2022 9:56 AM EST Reviewed chart. Refill appropriate. RX sent. [facility] HospitalBkmpiu33-97-5793 Miscellaneous Notes* Telephone Encounter - ELSA Arriaza CNP - 07/18/2022 9:56 AM EST Reviewed chart. Refill appropriate. RX sent. * Telephone Encounter - Magda Lomas - 07/18/2022 9:39 AM EST Prescription Request: Last medication check: 06/30/22 Last physical exam: 04/26/22 Next scheduled appointment: 09/30/22 Last date of refill on this medication 06/14/22 documented in this encounterSWilson HealthVakbwm71-17-4632 Telephone encounter Note* Telephone Encounter - Magda Lomas - 07/18/2022 9:39 AM EST Prescription Request: Last medication check: 06/30/22 Last physical exam: 04/26/22 Next scheduled appointment: 09/30/22 Last date of refill on this medication 06/14/22 [facility] HospitalSougct54-88-1188 Telephone encounter Note* Telephone Encounter - Ashley Haider MA - 07/13/2022 1:06 PM EST Attempted to call patient to help her schedule an appt - the patient has a recording that says she is not accepting calls [facility] HospitalYvxapr99-25-8432 Miscellaneous Notes* Telephone Encounter - Ashley Haider [...] her 07/08 appt. Please advise. Office Name: [facility] Physician Orthopedics Medication Refills need, if any: N/A Medication Name: N/A documented in this [facility]01-25-2023 Telephone encounter Note* Telephone Encounter - Devendra Loera MD - 07/13/2022 11:10 AM EST Okay to reschedule [facility] Phone: [phone] 515-446101-23-2023 Telephone encounter Note* Telephone Encounter - ELSA Arriaza CNP - 07/11/2022 2:11 PM EST Reviewed chart. Refill appropriate. RX sent. [facility] Okqbnz37-49-5657 Miscellaneous Notes* Telephone Encounter - ELSA Arriaza CNP - 07/11/2022 2:11 PM EST Reviewed chart. Refill appropriate. RX sent. * Telephone Encounter - Mya Foster MA - 07/11/2022 2:02 PM EST Prescription Request: Last medication check: 08/05/21 Last physical exam: 04/26/22 Next scheduled appointment: 09/29/2022 Last date of refill on this medication 02/28/2022 documented in this [facility]01-23-2023 Telephone encounter Note* Telephone Encounter - Mya Foster MA - 07/11/2022 2:02 PM EST Prescription Request: Last medication check: 08/05/21 Last physical exam: 04/26/22 Next scheduled appointment: 09/29/2022 Last date of refill on this medication 02/28/2022 [facility] HospitalRhiwpt40-45-2271 Telephone encounter Note* Telephone Encounter - Mya Foster MA - 07/11/2022 9:46 AM EST Notified. [facility] HospitalEpnylf11-47-2958 Miscellaneous Notes* Telephone Encounter - Mya Foster [...] to answer question Protocols used: Falls and Xcwwftx-PFKPX-CK documented in this encounterSWilson HealthLwqisw70-61-7798 Telephone encounter Note* Telephone Encounter - Shiv Lopez MD - 07/08/2022 12:30 PM EST Rx sent for tramadol, she can take this with Tylenol, this is a one-time prescription and cannot berefilled because we are not chronic pain management physicians. [facility] HospitalQsrbxv58-09-0111 Miscellaneous Notes* Telephone Encounter - Shiv Lopez [...] to answer question Protocols used: Falls and Emimbtu-CFBEU-BP documented in this encounterSWilson HealthOueuno64-32-1674 Telephone encounter Note* Telephone Encounter - Christine [...] to answer question Protocols used: Falls and Jicryas-WSMAD-NI [facility] HospitalKebzql41-32-0098 Telephone encounter Note* Telephone Encounter - Katie Bernardo - 07/07/2022 5:48 PM EST Name of Caller: Radha Contact Reason for Appointment: Pt states that she would like to r/s her 07/08 appt. Please advise. Office Name: [facility] Physician Orthopedics Medication Refills need, if any: N/A Medication Name: N/A [facility] HospitalLxdvow02-37-8089 Evaluation + Plan note* Assessment & Plan Note - Shiv Lopez MD - 06/30/2022 12:54 PM ESTAssociated Problem(s): Hyperlipidemia with target LDL less than 70 Controlled, continue rosuvastatin 10 mg daily [facility] HospitalGuabkv18-17-6219 Evaluation + Plan note* Assessment & Plan Note - Sihv Lopez MD - 06/30/2022 12:54 PM ESTAssociated Problem(s): Moderate episode of recurrent major depressive disorder (HCC) Stable, continue Paxil 20 mg daily [facility] HospitalMyofxs72-39-8224 Evaluation + Plan note* Assessment & Plan Note - Shiv Lopez MD - 06/30/2022 12:54 PM ESTAssociated Problem(s): Chronic right-sided low back pain with right-sided sciatica Referral to orthopedic surgeon [facility] HospitalTezvfh93-60-0940 Evaluation + Plan note* Assessment & Plan Note - Shiv Lopez MD - 06/30/2022 12:54 PM ESTAssociated Problem(s): Hypothyroidism Controlled, continue levothyroxine 150 mcg daily [facility] HospitalJzoswy15-71-8314 Miscellaneous Notes* Assessment & Plan Note - [...] current dose of Ambien documented in this [facility]01-12-2023 Evaluation + Plan note* Assessment & Plan Note - Shiv Lopez MD - 06/30/2022 12:53 PM EST Associated Problem(s): Vitamin D deficiency Stable, continue vitamin D 50,000 units weekly [facility] HospitalUwszmm00-56-9354 Evaluation + Plan note* Assessment & Plan Note - Shiv Lopez MD - 06/30/2022 12:53 PM ESTAssociated Problem(s): Uncontrolled type 2 diabetes mellitus with hyperglycemia (HCC) Uncontrolled, continue NovoLog 14 units before each meal. 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 [address]12-2023 Evaluation + Plan note* Assessment & Plan Note - Shiv Lopez MD - 06/30/2022 12:52 PM ESTAssociated Problem(s): DDD (degenerative disc disease), lumbar This is a chronic issue we will send her to spine surgery for further evaluation. [facility]01-12-2023 Evaluation + Plan note* Assessment & Plan Note - Shiv Lopez MD - 06/30/2022 12:51 PM ESTAssociated Problem(s): Hypertension Blood pressure was initially elevated, recheck was normal, continue lisinopril 40 mg daily and amlodipine 10 mg daily [address]12-2023 Evaluation + Plan note* Assessment & Plan Note - Shiv Lopez MD - 06/30/2022 12:51 PM ESTAssociated Problem(s): Restless legs syndrome (RLS) Stable on current dose of Mirapex 2 mg nightly [address]12-2023 Evaluation + Plan note* Assessment & Plan Note - Shiv Lopez MD - 06/30/2022 12:51 PM ESTAssociated Problem(s): Insomnia Stable on current dose of Ambien [facility] HospitalQponfe39-90-2178 History of Present illness Narrative* Syl Kumar MA - 06/30/2022 8:15 AM EST Patient verified by last name and date of . Patient wants a furnace repairer helper in the room during during the visit. no Instrument And Electrical Technician na * Shiv Lopez MD - 06/30/2022 8:15 AM EST Images from the original note were not included. 06/30/2022 Rahda Sandoval (: 1945) is a 76 y.o. [...] spine surgery for further evaluation. Orders: - [facility] Orthopedics Spine - [place] [address]. Chronic right-sided low back pain with right-sided sciatica Assessment & Plan: Referral to orthopedic surgeon Orders: - [facility] Orthopedics Spine - [place] Follow up in about 3 months [...] MD 06/30/2022 12:55 PM documented in this encounterSWilson HealthEvaluation note* Diagnosis Localized edema Edema documented in this encounter [facility] Work Phone: Evaluation note* Diagnosis Dyspnea on exertion Other dyspnea and respiratory abnormality documented in this encounter [facility] Work Phone: Evaluation note* Diagnosis Acute lower GI bleeding- Primary Unspecified, hemorrhage of gastrointestinal tract Acute lower GI bleeding Unspecified, hemorrhage of gastrointestinal tract Rectal bleeding Hemorrhage of rectum and anus Gastrointestinal bleed Unspecified, hemorrhage of gastrointestinal tract [facility]* Diagnosis Hyperlipidemia with target LDL less than 70 Other and unspecified hyperlipidemia Acquired hypothyroidism Unspecified hypothyroidism Chronic left shoulder pain Pain in joint, shoulder region documented in [facility]* Diagnosis Vitamin D deficiency Acquired hypothyroidism Unspecified hypothyroidism Chronic left shoulder pain Pain in joint, shoulder region Restless legs syndrome (RLS) documented [facility]* Diagnosis Wound of right buttock, subsequent encounter- Primary Chronic left shoulder pain Pain in joint, shoulder region [facility]* Diagnosis LING (acute kidney injury) ([facility]) ([facility])- Primary Pyelonephritis Unspecified pyelonephritis LING (acute kidney injury) ([facility]) ([facility]) Polypharmacy Issue of repeat prescriptions Insomnia, unspecified type Pressure ulcer of right buttock, stage [address]) Declining functional status Weakness Other malaise and fatigue Insomnia Insomnia, unspecified Anxiety Anxiety state, unspecified Polypharmacy Issue of repeat prescriptions DNR (do not resuscitate) Other specified conditions influencing health status Complicated UTI (urinary tract infection) documented in this encounter [facility]* Diagnosis Onset Date Resolution Status Acquired lymphedema acute Debility acute Depression acute Diabetes mellitus acute Edema acute Hypothyroidism acute Insomnia acute Pain in left toe(s) acute Pain in right toe(s) acute Restless leg syndrome acute Rheumatoid arthritis acute Tinea unguium acute Type 2 diabetes mellitus with diabetic polyneuropathy acute Urinary tract infection acut e Hypertension chronic [facility] Work Phone: Evaluation note* Diagnosis Onset Date Resolution Status Acquired lymphedema acute Debility acute Depression acute Diabetes mellitus acute Edema acute Hypothyroidism acute Insomnia acute Restless leg syndrome acute Rheumatoid arthritis acute Type 2 diabetes mellitus with diabetic polyneuropathy acute Hypertension chronic Pain in left toe(s) resolved Pain in right toe(s) resolve d Tinea unguium resolved Urinary tract infection reso lved [facility] Work Phone: Evaluation noteNo assessment information available [facility] Work Phone: Evaluation note* Diagnosis Uncontrolled [...] with right-sided sciatica documented [facility]* Diagnosis Trauma- Primary Injury, other and unspecified, unspecified site [facility]* Diagnosis Trauma- Primary Injury, other and unspecified, unspecified site documented in this encounter [facility]* Diagnosis Vitamin D deficiency [facility] Additional Instructions Discharge to [facility] 03/18/2023, intermediate, Part B therapies.[facility] Work Phone: Instructions* Attachments The following attachments cannot be sent through Care Everywhere. * Acute Cystitis Discharge Instructions (Indonesian) [facility] ([facility] Consultation (Urgent) - Pending Review Specialty Diagnoses / Procedures Referred By Contac t Referred To Contact Wound Care Diagnoses Wound of right buttock, subsequent encounter Procedures SC OFFICE/OUTPATIENT [facility] 60-74 MINUTES Katia Granados APRN - CNP [address] [facility] [place] [address] [facility] [address] [place] [address] Referral ID Status Reason Start Date Expiration Date Visits Requested Visits Authorized [id number] Pending Review Specialty Services Required 02/07/2023 02/07/2024 1 1 Rogelio Harmon for referral (narrative)* Consultation (Routine) - Pending Review Specialty Diagnoses / Procedures Referred By Contac t Referred To Contact Orthopedic Surgery: Spine Surgery / Orthopedic Surgery Diagnoses DDD (degenerative disc disease), lumbar Chronic right-sided low back pain with right-sided sciatica Procedures SC OFFICE/OUTPATIENT [facility] 60-74 MINUTES Shiv Lopez MD [address] [place] [address] [address] [place] [address] [facility] [address] [facility] [address] [place] [address] Referral ID Status Reason Start Date Expiration Date Visits Requested Visits Authorized [id number] Pending Review Specialty Services Required 06/30/2022 12/27/2022 1 1 Rogelio Harmon for referral (narrative)No reason for referral information availableWMercy Health Work Phone: Summary Purpose Family History No Family History Records Found Relationship Condition Age at Onset Recorded Date/T amelia Not Specified Cardiac disease Unknown Malignant neoplasm Unknown Advance Directives No Advanced Directives Records FoundDocuments on File Type Date Recorded Patient State Comptroller Expl anation ACP-Advance Directive ACP-Power of Receiving Room Clerk Latest Code Status on File Code Status Date Activated Date Inactivated Comments Full Code 01/20/2019 3:56 AM 01/23/2019 7:06 PM Full Code 01/20/2019 3:56 AM 01/20/2019 3:56 AM Documents on File Type Date Recorded 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 State Comptroller Expl anation Advance Directives and Living Will Power of Receiving Room Clerk Documents on File Type Date Recorded Patient State Comptroller Expl anation ACP-Advance Directive ACP-Power of Receiving Room Clerk Latest Code Status on File Code Status [...] No March 06, 2023 4:25pm Power of Receiving Room Clerk No February 4:25pm Advance Directive Response Recorded Date/ Time Living Will No March 06, 2023 3:25pm Power of Receiving Room Clerk No February 3:25pm Documents on File Type Date Recorded Patient State Comptroller Expl anation DNR (Do Not Resuscitate) 03/06/2023 [...] sent through Care Everywhere. * Lacerations: Stitches (Indonesian) * Head Injury: Closed: General Info (Indonesian) * Cervical Strain (Indonesian) documented in this encounter Assessments Diagnosis Injury of head, initial encounter- Primary Laceration of scalp, initial encounter Strain of neck muscle, initial encounter Reason for Referral Status Reason Specialty Diagnoses / Procedures Referre d By Contact Referred To Contact Closed Cardiology Diagnoses Localized edema Procedures ECHO Complete 2D W Doppler W Color Shiv Lopez MD [address] [place] [address], [place] [address] Specialty Diagnoses / Procedures Referred By Contac t Referred To Contact Gabrielle Finch MD [address] [place] [address] Referral ID Status Reason Start Date Expiration Date Visits Re quested Visits Authorized [id number] Closed 1 1 Referral ID Status Reason Start Date Expiration Date Visits Re quested Visits Authorized [id number] Closed 1 1 Referral ID Status Reason Start Date Expiration Date Visits Re quested Visits Authorized [id number] Closed 1 1 Specialty Diagnoses / Procedures Referred By Contac t Referred To Contact Wound Care Diagnoses Pressure ulcer of right buttock, stage 3 (HCC) Procedures SC OFFICE/OUTPATIENT NEW [facility]IGH MDM 60-74 MINUTES Rosalinda Burrows, 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[employer] [address] [place] [address] Referral ID Status Reason Start Date Expiration Date Visits Requested Visits Authorized [id number] Pending Review Specialty Services Required 03/01/2023 02/29/2024 1 1 Specialty Diagnoses / Procedures Referred By Contac t Referred To Contact Geriatric Medicine Diagnoses Polypharmacy Insomnia, unspecified type Procedures SC OFFICE/OUTPATIENT NEW HIGH MDM 60-74 MINUTES Adam Holt MD [address] [address] [facility] [address] [facility] [address] [place] [address] Referral ID Status Reason Start Date Expiration Date Visits Requested Visits Authorized [id number] Pending Review Specialty Services Required 03/01/2023 02/29/2024 1 1 Chief Complaint and Reason for Visit Chief Complaint UTI/PRESSURE WOUND Reason for Visit Acquired lymphedema Debility Depression Diabetes mellitus Edema Hypothyroidism Insomnia Pain in left toe(s) Pain in right toe(s) Restless leg syndrome Rheumatoid arthritis Tinea unguium Type 2 diabetes mellitus with diabetic polyneuropathy Urinary tract infection Hypertension Chief Complaint UTI/PRESSURE WOUND [facility] WORK [facility] WORK Reason for Visit Acquired lymphedema Debility Depression Diabetes mellitus Edema Hypothyroidism Insomnia Restless leg syndrome Rheumatoid arthritis Type 2 diabetes mellitus with diabetic polyneuropathy Hypertension Pain in left toe(s) Pain in right toe(s) Tinea unguium Urinary tract infection Chief Complaint UTI/PRESSURE WOUND [facility] LAB WORK F[facility] LAB WORK [facility] LABWORK Reason for Visit Acquired lymphedema Debility Depression Diabetes mellitus Edema Hypothyroidism Insomnia Restless leg syndrome Rheumatoid arthritis Type 2 diabetes mellitus with diabetic polyneuropathy Hypertension Pain in left toe(s) Pain in right toe(s) Tinea unguium Urinary tract infection Chief Complaint UTI/PRESSURE WOUND [facility]PC LAB WORK FPC LAB WORK FPC LABWORK [facility] LAB WORK Reason for Visit Acquired lymphedema Debility Depression Diabetes mellitus Edema Hypothyroidism Insomnia Restless leg syndrome Rheumatoid arthritis Type 2 diabetes mellitus with diabetic polyneuropathy Hypertension Pain in left toe(s) Pain in right toe(s) Tinea unguium Urinary tract infection Chief Complaint UTI/PRESSURE WOUND FPC LAB WORK FPC LAB WORK FPC LABWORK FPC LAB WORK LABWORK Reason for Visit Acquired lymphedema Debility Depression Diabetes mellitus Edema Hypothyroidism Insomnia Restless leg syndrome Rheumatoid arthritis Type 2 diabetes mellitus with diabetic polyneuropathy Hypertension Pain in left toe(s) Pain in right toe(s) Tinea unguium Urinary tract infection Chief Complaint UTI/PRESSURE WOUND [facility]PC LAB WORK FPC LAB WORK FPC LABWORK F[facility] LAB WORK [facility] LAB WORK LABWORK Reason for Visit Acquired lymphedema Debility Depression Diabetes mellitus Edema Hypothyroidism Insomnia Restless leg syndrome Rheumatoid arthritis Type 2 diabetes mellitus with diabetic polyneuropathy Hypertension Pain in left toe(s) Pain in right toe(s) Tinea unguium Urinary tract infection Chief Complaint FPC LABWORK FPC LAB WORK FPC LAB WORK LABWORK FPC LAB WORK FPC LAB WORK LABWORK FPC LAB WORK LABWORK Chief Complaint FPC LAB WOR K FPC LAB WORK LABWORK FPC LAB WORK FPC LAB WORK LABWORK FPC LAB WORK LABWORK LABWORK Chief Complaint FPC LAB WOR K LABWORK FPC LAB WORK FPC LAB WORK LABWORK FPC LAB WORK LABWORK LABWORK LABWORK Chief Complaint FPC LAB WOR K LABWORK FPC LAB WORK FPC LAB WORK LABWORK FPC LAB WORK LABWORK LABWORK LABWORK LABWORK Chief Complaint Admit Date FPC LAB WORK May 29 5:00am [facility] LAB WORK June 13 6:35am [facility] LAB WORK June 27, 2024 5:00am [facility] LAB WORK July 11, 2024 5:00am LABWORK July 25, 2024 5 :00am B/L SHOULDER PAIN/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 o July 31, 2024 4:58pm LABWORK August 06, 2024 4:00pm LABWORK August 08, 2024 8:05am [facility] LAB WORK August 22, 2024 7: 10am Chief Complaint Admit Date FPC LAB WORK May 29 5:00am FPC LAB WORK June 13 6:35am FPC LAB WORK June 27, 2024 5:00am FPC LAB WORK July 11, 2024 5:00am LABWORK July 25, 2024 5 :00am B/L SHOULDER PAIN/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 o July 31, 2024 4:58pm LABWORK August 06, 2024 4:00pm LABWORK August 08, 2024 8:05am FPC LAB WORK August 22, 2024 7: 10am FPC LAB WORK September 05, 2024 8 :00am Chief Complaint Admit Date FPC LAB WORK June 13 6:35am FPC LAB WORK June 27, 2024 5:00am FPC LAB WORK July 11, 2024 5:00am LABWORK July 25, 2024 5 :00am B/L SHOULDER PAIN/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 o July 31, 2024 4:58pm LABWORK August 06, 2024 4:00pm LABWORK August 08, 2024 8:05am FPC LAB WORK August 22, 2024 7: 10am FPC LAB WORK September 05, 2024 8 :00am FPC LAB WORK October 03, 2024 4 :00am Chief Complaint Admit Date FPC LAB WORK June 27, 2024 5:00am FPC LAB WORK July 11, 2024 5:00am LABWORK July 25, 2024 5 :00am B/L SHOULDER PAIN/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 o July 31, 2024 4:58pm LABWORK August 06, 2024 4:00pm LABWORK August 08, 2024 8:05am FPC LAB WORK August 22, 2024 7: 10am FPC LAB WORK September 05, 2024 8 :00am LABWORK September 19, 2024 5:00 am FPC LAB WORK September 23, 2024 8: 20am FPC LAB WORK October 03, 2024 4 :00am Chief Complaint Admit Date LABWORK August 06, 2024 4:00pm LABWORK August 08, 2024 8:05am FPC LAB WORK August 22, 2024 7: 10am FPC LAB WORK September 05, 2024 8 :00am LABWORK September 19, 2024 5:00 am FPC LAB WORK September 23, 2024 8: 20am FPC LAB WORK October 03, 2024 4 :00am LABWORK October 17, 2024 5:00am LABOWRK November 08, 2024 5:00a m Chief Complaint Admit Date LABWORK August 06, 2024 4:00pm LABWORK August 08, 2024 8:05am FPC LAB WORK August 22, 2024 7: 10am FPC LAB WORK September 05, 2024 8 :00am LABWORK September 19, 2024 5:00 am FPC LAB WORK September 23, 2024 8: 20am FPC LAB WORK October 03, 2024 4 :00am LABWORK October 17, 2024 5:00am LABOWRK November 08, 2024 5:00a m FPC LAB WORK November 14, 2024 6:5 0am LABOWRK November 28, 2024 5:00 am Chief Complaint Admit Date LABOWRK November 28, 2024 5:00 am FPC LAB WORK December 12, 2024 7: 40am FPC LAB WORK December 24, 2024 12: 15am FPC LAB WORK December 26, 2024 5: 00am FPC LAB WORK January 09, 2025 7: 00am LABWORK January 23, 2025 5:0 0am LABWORK February 06, 2025 5: 00am FPC LAB WORK February 20 5:00am FPC LAB WORK March 10 4:00am Additional Source [...] DATE CREATED AUTHOR AUTHOR'S ORGANIZ ATION 04/28/2025 [facility] Reason for Visit (unrecogniz ed section and content) Reason Comments Fall Surgical team Reason Onset Date Comments Results 10/05/2022 Reason Comments Black or Bloody Stool Specialty Diagnoses / Procedures Referred By Contac t Referred To Contact Diagnoses Acute lower GI bleeding Procedures K92.2 Bertram Durbin MD [address] [place] [address] [facility] 1e Med Surg [address] [place] [address] Referral ID Status Reason Start Date Expiration Date Visits Re quested Visits Authorized [id number] 1 1 Reason Onset Date Comments Med [...] (CMS/HCC) (HCC) Procedures .. Gabrielle Finch MD [address] [place] [address] [facility] Emergency Dept [address] [place] [address] Referral ID Status Reason Start Date Expiration Date Visits Re quested Visits Authorized [id number] 1 1 Reason Onset Date Comments ER [...] Provider Active Start: August 08, 2024 Dr. Meilssa THOMPSON MD Attending Provider Active Start: August [...] Active Member Role Status Dates Dr. Shiv Loepz MD Primary Care Provider Active Start: July [...] Attending Provider Active Start: September 19, 2024 Wetlands Conservation Laborer Relationship Specialty Start Date End Date Shiv Lopez MD [address] [place] [id number] PCP - General 02/01/19 Wetlands Conservation Laborer Relationship Specialty Start Date End Date Shiv Lopez MD [address] [place] [id number] PCP - General 02/01/19 Wetlands Conservation Laborer Relationship Specialty Start Date End Date Shiv Lopez MD [address] [place] [id number] PCP - General 02/01/19 Wetlands Conservation Laborer Relationship Specialty Start Date End Date Shiv Lopez MD [address] [place] [id number] PCP - General 02/01/19 Wetlands Conservation Laborer Relationship Specialty Start Date End Date Shiv Lopez MD [address] [place] [id number] PCP - General 02/01/19 Wetlands Conservation Laborer Relationship Specialty Start Date End Date Shiv Lopez MD [address] [facility] [place] [address] PCP - General 02/01/19 Wetlands Conservation Laborer Relationship Specialty Start Date End Date Shiv Lopez MD [address] [facility] [place] [address] PCP - General 02/01/19 Wetlands Conservation Laborer Relationship Specialty Start Date End Date Shiv Lopez MD [address] [facility] [place] [address] PCP - General 02/01/19 Wetlands Conservation Laborer Relationship Specialty Start Date End Date Shiv Lopez MD [address] [facility] [place] [address] PCP - General 02/01/19 Wetlands Conservation Laborer Relationship Specialty Start Date End Date Shiv Lopez MD [address] [facility] [place] [address] PCP - General 02/01/19 Wetlands Conservation Laborer Relationship Specialty Start Date End Date Shiv Lopez MD [address] [facility] [place] [address] PCP - General 02/01/19 Wetlands Conservation Laborer Relationship Specialty Start Date End Date Shiv Lopez MD [address] [facility] [place] [address] PCP - General 02/01/19 Wetlands Conservation Laborer Relationship Specialty Start Date End Date Shiv Lopez MD [address] [facility] [place] [address] PCP - General 02/01/19 Wetlands Conservation Laborer Relationship Specialty Start Date End Date [place] [address] PCP - General 02/01/19 Team Status: Active [...] THOMPSON MD Attending Provider, Referring Provider Active Wetlands Conservation Laborer Relationship Specialty Start Date End [place] [address] PCP - General 02/01/19 Wetlands Conservation Laborer Relationship Specialty Start Date End [place] [address] PCP - General 02/01/19 Wetlands Conservation Laborer Relationship Specialty Start Date End Date Shiv Lopez MD [address] [facility], [facility] [place] [address] PCP General 02/01/19 Wetlands Conservation Laborer Relationship Specialty Start Date End Date Shiv Lopez MD [address] [facility], [facility] [place] [address] PCP General 02/01/19 Team Status: Inactive Member [...] parameters not met - Comment: Held per [facility]) 0859 (Given - Provider: Oneyda [...] parameters not met - Comment: Held per [facility]) 0859 (Given - Provider: Oneyda Young RN) 0900 (Not Given - Provider: Lambert Kaur RN - Reason: NPO) PARoxetine (Paxil) tablet 20 mg 20 mg, Oral, Every morning, First dose on Mon12/06/22 at 0900 0900 (Given - Provider: Oneyda Young RN) 0900 (Not Given - Provider: Labmert Kaur RN - Reason: NPO) polyethylene glycol [...] BE BASED ON THE PRIMARY CLINICAL RECORDS. [employer] [facility]. provides no warranty or guarantee of the accuracy or completeness of information in this document.
[2025-05-11 19:41] LABS: Procalcitonin 0.09 ng/mL (<=0.10)
--- NOTE | 2025-05-11 20:00 | ED.RN ---
Update given to RN @ [facility] about pt admission
[2025-05-12] VITALS (12 sets, daily range): BP systolic 128–149; BP diastolic 55–76; PULSE 66–100; RESP 15–18; TEMP 36.6–37.5; O2SAT 93–99
[2025-05-12 06:47] LABS: Hematocrit 37.2 % (37-47); Hemoglobin 11.1 g/dL (12.0-15.0); Mean Corp Hgb Conc 29.8 g/dL (32-36); Mean Corpuscular Volume 98.7 fL (81-99); Mean Platelet Vol. 10.0 fl (6.2-12.0); Platelet Count 326 K/mm3 (150-450); RBC Distribution Width CV 12.3 % (11.6-14.6); RBC Distribution Width SD 44.0 fl (35.1-43.9); Red Blood Count 3.77 M/mm3 (4.2-5.4); White Blood Count 11.6 K/mm3 (4.4-11.0)
[2025-05-12 07:19] LABS: Anion Gap 12 (5-15); BUN 32 mg/dL (4-19); BUN/Creat Ratio 28.1 RATIO (10-20); Calcium,Total 8.5 mg/dL (7.6-11.0); Carbon Dioxide 31.0 mmol/L (21.0-32.0); Chloride 98 mmol/L (98-108); Estimated Creatinine Clearance 49.73 ml/min (50-250); Glucose 205 mg/dL (70-99); Potassium 3.8 mmol/L (3.3-5.1)
--- NOTE | 2025-05-12 09:05 | PN.HOSP_ITS ---
Subjective Subjective Doing well, no issues overnight. Maintaining saturation on 2 L nasal cannula. Leukocytosis is improving Objective Data Objective Data Vital Signs: Vital Signs Temp Pulse Resp BP Pulse Ox O2 Del Method O2 Flow Rate 98.5 F 77 17 134/60 H 93 Nasal Cannula 2 05/12/25 08:34 05/12/25 08:34 05/12/25 08:34 05/12/25 08:34 05/12/25 08:34 05/12/25 08:52 05/12/25 08:52 Oxygen Flow Rate (L/min) 2 Oxygen Delivery Method Nasal Cannula Weight: 240 lb 15.444 oz Body Mass Index (BMI) 37.7 Intake & Output: Intake and Output for Last 24 Hours 05/11/25 05/12/25 05/13/25 03:59 03:59 03:59 Intake Total 240 / 240 Output Total 300 / 300 Balance 240 / 240 -300 / -300 Lab / Micro Data 05/12/25 06:00 05/12/25 06:00 Labs: Laboratory Results - last 24 hr 05/11/25 15:15: WBC 13.3 H, RBC 3.99 L, Hgb 11.9 L, Hct 38.6, MCV 96.7, MCH 29.8, MCHC 30.8 L, RDW Std Deviation 43.7, RDW Coeff of Daphney 12.2, Plt Count 348, MPV 10.7, Immature Gran % (Auto) 0.400, Neut % (Auto) 66.6, Lymph % (Auto) 17.8 L, [place] % (Auto) 9.5, Eos % (Auto) 5.2 H, Baso % (Auto) 0.5, Absolute Neuts (auto) 8.9 H, Absolute Lymphs (auto) 2.36, Nucleated RBC % 0, Sodium 140, Potassium 4.2, Chloride 100, Carbon Dioxide 29.7, Anion Gap 11, BUN 33 H, C reatinine 1.21 H, Estim Creat Clear Calc 48.17 L, Est GFR (MDRD) Non-Af 45 L, B UN/Creatinine Ratio 26.9 H, Glucose 100 H, Calcium 8.7, Total Bilirubin 0.47, A ST 45 H, ALT 34, Alkaline Phosphatase 117 H, Total Protein 7.0, Albumin 3.2 L, Globulin 3.8, Albumin/Globulin Ratio 0.8 L, Procalcitonin 0.09, TSH 1.290 05/11/25 16:15: Lactic Acid < 1.0, Ammonia 10.8 L 05/11/25 16:16: PT 13.5, INR 1.0, APTT 40.2 H 05/11/25 20:41: POC Glucose 132 H 05/12/25 05:53: POC Glucose 196 H 05/12/25 06:00: WBC 11.6 H, RBC 3.77 L, Hgb 11.1 L, Hct 37.2, MCV 98.7, MCH 29.4, MCHC 29.8 L, RDW Std Deviation 44.0 H, RDW Coeff of Daphney 12.3, Plt Count 326, MPV 10.0, Sodium 141, Potassium 3.8, Chloride 98, Carbon Dioxide 31.0, Anion Gap 12, BUN 32 H, Creatinine 1.13, Estim Creat Clear Calc 49.73 L, Est GFR (MDRD) Non-Af 49 L, BUN/Creatinine Ratio 28.1 H, Glucose 205 H, Calcium 8.5 Micro: Microbiology 05/11/25 21:30 Mucosa - Nasopharyngeal Respiratory Panel (PCR) - Final 05/11/25 21:30 Mucosa - Nasopharyngeal Coronavirus COVID-19 PCR - Final ABG Data ABG results: ABG 05/11/25 15:51 Specimen Type ART Sample Site L Radial pH 7.39 Bicarbonate Actual 37.5 H Total CO2 39 Base Excess 12 H O2 Saturation 91 L O2 % 2.0 ABG pCO2 62.6 H ABG pO2 64 L Elder Test Positive O2 Delivery Device Cannula Vent Mode Not entered Radiography Diagnostic Testing: Radiology Impression Chest X-Ray 05/11/25 16:15 IMPRESSION: No Acute Findings. Reading Location: [address] Physical Exam Narrative General: Alert, Oriented x3, Cooperative, No apparent distress HEENT: Atraumatic, PERRLA, EOMI, Normocephalic Oral: Moist Mucosa Neck: Supple, No JVD Lungs: Diminished, Normal air movement, No rhonchi, No wheeze, No rales Cardiovascular: Regular rate, Regular Rhythm, Normal S1, Normal S2, No murmurs Abdomen: Soft, Non Tender, Non-Distended, No Hepato-splenomegaly Extremities: Edema, Capillary Refill Less than 3 Seconds Skin: No rashes, No breakdown, bilateral lower extremities wrapped Musculoskeletal: No Tenderness to Palpation of Joints or Extremities Neurological: No focal neurological deficits, moves all extremities Psych/Mental Status: Normal Affect, Appropriate Assessment & Plan Assessment/Plan (1) URI (upper respiratory infection): (2) Hypoxia: PLAN: Plan 1. Acute hypoxic respiratory insufficiency secondary to viral URI with acute metabolic encephalopathy ? Viral panel so far negative and sputum cultures pending ? Procalcitonin was negative on admission so antibiotics were not initiated ? It does appear that her confusion is resolved ? She does have chronic debility from her lymphedema and she did present from SNF which she will go back to on discharge ? She does have some chronic hypercapnia as her pH was normal on ABG with an elevated pCO2 to 64 2. Essential HTN/HLD ? Blood pressures are stable ? Continue with her home cholesterol medications ? Continue with her home blood pressure medications ? Will monitor make adjustments as necessary 3. DM2 ? Insulin ? Accu-Cheks ? Will monitor make adjustments as necessary 4. Hypothyroidism ? Stable ? Continue with Synthroid 5. Anxiety/depression ? Stable ? Continue with her home medications DVT: Lovenox Charges/Coding Visit Charges Inpatient E&M: 72491 Subs Hosp L2
[2025-05-12] MEDS: Senna/Docusate Sodium 1 Tablet PO ×2 (10:11→20:07)
[2025-05-12] MEDS: Insulin Glargine-YFGN 100 UNIT/ML Pen 15 UNIT SC (10:12)
--- NOTE | 2025-05-12 11:23 | CASEMGMT ---
TONI BARROW in to discuss discharge planning with patient. Patient is from [facility]. Patient wishes to return to [facility] when medically ready. Patient had no further questions or concerns. TONI BARROW updated DC Windows Consultant to send updated clinicals. CM will continue tot follow this patient and plan for a safe discharge.
--- NOTE | 2025-05-12 11:35 | CASEMGMT ---
Addendum entered by Felicia Mejia 05/12/25 11:54: Pt is care home. [facility] would like to skill. RN CM updated. Original Note: Discharge Planning Updates sent via [facility] to [facility]. Felicia Mejia DC Planning Asst.
[2025-05-12] MEDS: MELATONIN 3 MG TABLET PO (20:08)
[2025-05-13] VITALS (10 sets, daily range): BP systolic 122–138; BP diastolic 50–85; PULSE 64–71; RESP 16–18; TEMP 36.8–36.9; O2SAT 94–98
[2025-05-13 06:33] LABS: Hematocrit 35.2 % (37-47); Hemoglobin 11.0 g/dL (12.0-15.0); Immature Granulocytes Count 0.100 X10^3/uL (0.0-0.0); Mean Corp Hgb Conc 31.3 g/dL (32-36); Mean Corpuscular Volume 96.2 fL (81-99); Mean Platelet Vol. 10.2 fl (6.2-12.0); NRBC Flagged by Analyzer 0 % (0-5); Platelet Count 323 K/mm3 (150-450); RBC Distribution Width CV 12.1 % (11.6-14.6); RBC Distribution Width SD 42.5 fl (35.1-43.9); Red Blood Count 3.66 M/mm3 (4.2-5.4); White Blood Count 13.5 K/mm3 (4.4-11.0)
[2025-05-13 07:04] LABS: Anion Gap 9 (5-15); BUN 33 mg/dL (4-19); BUN/Creat Ratio 28.0 RATIO (10-20); Calcium,Total 8.7 mg/dL (7.6-11.0); Carbon Dioxide 31.2 mmol/L (21.0-32.0); Chloride 98 mmol/L (98-108); Estimated Creatinine Clearance 47.62 ml/min (50-250); Glucose 163 mg/dL (70-99); Potassium 3.7 mmol/L (3.3-5.1)
[2025-05-13] MEDS: Senna/Docusate Sodium 1 Tablet PO ×2 (09:30→22:33)
[2025-05-13] MEDS: Insulin Glargine-YFGN 100 UNIT/ML Pen 15 UNIT SC (09:31)
--- NOTE | 2025-05-13 14:57 | CASEMGMT ---
Discharge Planning Updates sent via [facility] to [facility] with request to submit for precert. Felicia Mejia DC Planning Asst.
--- NOTE | 2025-05-13 16:29 | PCM.PN.HOSP ---
Subjective Subjective She feels like she might be breathing a bit better today. White count did jump up again but she remains afebrile with no obvious signs of bacterial infection Objective Data Objective Data Vital Signs: Vital Signs Temp Pulse Resp BP Pulse Ox O2 Del Method O2 Flow Rate 98.3 F 68 18 123/50 H 94 Nasal Cannula 2 05/13/25 14:00 05/13/25 15:29 05/13/25 14:00 05/13/25 15:29 05/13/25 14:00 05/13/25 14:00 05/13/25 14:00 Oxygen Flow Rate (L/min) 2 Oxygen Delivery Method Nasal Cannula Weight: 240 lb 15.444 oz Body Mass Index (BMI) 37.7 Intake & Output: Intake and Output for Last 24 Hours 05/12/25 05/13/25 05/14/25 03:59 03:59 03:59 Intake Total 240 / 240 1175 / 1175 200 / 200 Output Total 1200 / 1200 300 / 300 Balance 240 / 240 -25 / -25 -100 / -100 Lab / Micro Data 05/13/25 05:44 05/13/25 05:44 Labs: Laboratory Results - last 24 hr 05/12/25 16:30: POC Glucose 189 H 05/12/25 20:07: POC Glucose 245 H 05/13/25 05:42: POC Glucose 164 H 05/13/25 05:44: WBC 13.5 H, RBC 3.66 L, Hgb 11.0 L, Hct 35.2 L, MCV 96.2, MCH 30.1, MCHC 31.3 L D, RDW Std Deviation 42.5, RDW Coeff of Daphney 12.1, Plt Count 323, MPV 10.2, Immature Gran % (Auto) 0.700, Neut % (Auto) 71.4 H, Lymph % (Auto) 15.2 L, [place] % (Auto) 8.6, Eos % (Auto) 3.5, Baso % (Auto) 0.6, Absolute Neuts (auto) 9.7 H, Absolute Lymphs (auto) 2.05, Nucleated RBC % 0, Sodium 138, Potassium 3.7, Chloride 98, Carbon Dioxide 31.2, Anion Gap 9, BUN 33 H, Creatinine 1.18, Estim Creat Clear Calc 47.62 L, Est GFR (MDRD) Non-Af 46 L, BUN/Creatinine Ratio 28.0 H, Glucose 163 H, Calcium 8.7 05/13/25 12:00: POC Glucose 221 H Micro: Microbiology 05/11/25 23:10 Sputum, Expectorated/Coughed Gram Stain - Final 05/11/25 21:30 Mucosa - Nasopharyngeal Respiratory Panel (PCR) - Final 05/11/25 21:30 Mucosa - Nasopharyngeal Coronavirus COVID-19 PCR - Final Physical Exam Narrative General: Alert, Oriented x3, Cooperative, No apparent distress HEENT: Atraumatic, PERRLA, EOMI, Normocephalic Oral: Moist Mucosa Neck: Supple, No JVD Lungs: Diminished, Normal air movement, No rhonchi, No wheeze, No rales Cardiovascular: Regular rate, Regular Rhythm, Normal S1, Normal S2, No murmurs Abdomen: Soft, Non Tender, Non-Distended, No Hepato-splenomegaly Extremities: Edema, Capillary Refill Less than 3 Seconds Skin: No rashes, No breakdown, bilateral lower extremities wrapped Musculoskeletal: No Tenderness to Palpation of Joints or Extremities Neurological: No focal neurological deficits, moves all extremities Psych/Mental Status: Normal Affect, Appropriate Assessment & Plan Assessment/Plan (1) URI (upper respiratory infection): (2) Hypoxia: PLAN: Plan 1. Acute hypoxic respiratory insufficiency secondary to viral URI with acute metabolic encephalopathy ? Viral panel so far negative and sputum cultures pending ? Procalcitonin was negative on admission so antibiotics were not initiated ? It does appear that her confusion is resolved ? She does have chronic debility from her lymphedema and she did present from SNF which she will go back to on discharge ? She does have some chronic hypercapnia as her pH was normal on ABG with an elevated pCO2 to 64 ? Will recheck her white blood cell count tomorrow morning 2. Essential HTN/HLD ? Blood pressures are stable ? Continue with her home cholesterol medications ? Continue with her home blood pressure medications ? Will monitor make adjustments as necessary 3. DM2 ? Insulin ? Accu-Cheks ? Will monitor make adjustments as necessary 4. Hypothyroidism ? Stable ? Continue with Synthroid 5. Anxiety/depression ? Stable ? Continue with her home medications DVT: Lovenox Charges/Coding Visit Charges Inpatient E&M: 67801 Subs Hosp L2
[2025-05-13] MEDS: MELATONIN 3 MG TABLET PO (22:33)
[2025-05-14 04:16] VITALS: BP 130/55; PULSE 65; RESP 17; TEMP 36.7; O2SAT 96
[2025-05-14 06:01] LABS: Hematocrit 34.1 % (37-47); Hemoglobin 10.5 g/dL (12.0-15.0); Immature Granulocytes Count 0.150 X10^3/uL (0.0-0.0); Mean Corp Hgb Conc 30.8 g/dL (32-36); Mean Corpuscular Volume 96.3 fL (81-99); Mean Platelet Vol. 9.8 fl (6.2-12.0); NRBC Flagged by Analyzer 0 % (0-5); Platelet Count 316 K/mm3 (150-450); RBC Distribution Width CV 12.0 % (11.6-14.6); RBC Distribution Width SD 42.7 fl (35.1-43.9); Red Blood Count 3.54 M/mm3 (4.2-5.4); White Blood Count 11.9 K/mm3 (4.4-11.0)
[2025-05-14 06:45] VITALS: BP 138/63; PULSE 71
[2025-05-14 09:01] VITALS: BP 131/60; PULSE 71; RESP 18; TEMP 36.8; O2SAT 96
[2025-05-14] MEDS: Senna/Docusate Sodium 1 Tablet PO (09:06)
[2025-05-14] MEDS: Insulin Glargine-YFGN 100 UNIT/ML Pen 15 UNIT SC (09:06)
--- NOTE | 2025-05-14 09:33 | PCM.TXEXTCAR ---
Diet Diet Order/Speech Therapy: INPATIENT Hospital Diet / Speech Therapy Order(s) 05/11/25 20:24 Diet: Cardiac - Heart Healthy Food consistency:: Regular Liquid Consistency:: Regular/Thin Dietary Modifications:: Consistent Carbohydrate Routine Orders/Code Status Routine Lab Work: CBC and BMP Code Status: DNRCC-A DC O2, CPAP, BIPAP needs Home O2 Discharge instructions: No Therapies Physical Therapy: Eval and Treat Occupational Therapy: Eval and Treat Problem/Diagnosis (1) URI (upper respiratory infection): Status: Acute Code(s): J06.9 - Acute upper respiratory infection, unspecified (2) Hypoxia: Status: Acute Code(s): R09.02 - Hypoxemia Plan 1. Acute hypoxic respiratory insufficiency secondary to viral URI with acute metabolic encephalopathy ? Viral panel so far negative and sputum cultures pending ? Procalcitonin was negative on admission so antibiotics were not initiated ? It does appear that her confusion is resolved ? She does have chronic debility from her lymphedema and she did present from SNF which she will go back to on discharge ? She does have some chronic hypercapnia as her pH was normal on ABG with an elevated pCO2 to 64 ? Will recheck her white blood cell count tomorrow morning 2. Essential HTN/HLD ? Blood pressures are stable ? Continue with her home cholesterol medications ? Continue with her home blood pressure medications ? Will monitor make adjustments as necessary 3. DM2 ? Insulin ? Accu-Cheks ? Will monitor make adjustments as necessary 4. Hypothyroidism ? Stable ? Continue with Synthroid 5. Anxiety/depression ? Stable ? Continue with her home medications DVT: Lovenox Allergies/Procedures Done in Hospital Allergies aspirin (From Percodan) Allergy (Verified 01/26/21 08:43) Other oxycodone (From Percodan) Allergy (Verified 01/26/21 08:43) Other vancomycin Allergy (Verified 01/26/21 08:43) Rash Procedures: None Type of Care/Length of Stay Estimated LOS: Convalescent Care Less Than 30 days Type of Care Needed: Skilled Rehab Potential: Good Prognosis: Good Additional Orders/Day of Discharge Day of Discharge: 05/14/25 Discharge Plan Admission Admit Date/Time: 05/11/25 18:50 Attending Provider: Zafar Cisneros Primary Care Provider: Melissa Reed Consulting Providers: Malcolm Graham; Zafar Cisneros; Ruperto Alaniz Discharge Orders/Prescriptions Prescriptions: Continued ergocalciferol (vitamin D2) [Vitamin D2] 1,250 mcg (50,000 unit) capsule 1,250 mcg PO DAILY baclofen 10 mg tablet 10 mg PO DAILY buspirone 5 mg tablet 5 mg PO BID PRN (Reason: anxiety) hydralazine 25 mg tablet 50 mg PO TID melatonin 3 mg capsule 3 mg PO QHS paroxetine HCl [Paxil] 20 mg tablet 20 mg PO DAILY acetaminophen 500 mg Tablet 1,000 mg PO Q6H PRN (Reason: Pain 1-10) Qty: 0 0RF atorvastatin 20 mg Tablet 20 mg PO QHS Qty: 0 0RF ammonium lactate 12 % Lotion 1 applic topical BID Qty: 0 0RF Protocol: *Topical Application Instructions APPLICATION INSTRUCTIONS: apply to bilateral lower extremities 1-2 times per day menthol-zinc oxide [Calmoseptine] 0.44-20.6 % Ointment 1 applic topical BID Qty: 0 0RF Protocol: *Topical Application Instructions APPLICATION INSTRUCTIONS: DULCE BUTTOCKS/COCCYX sennosides-docusate sodium [Stool Softener-Stimulant Laxat] 8.6-50 mg Tablet 1 tab PO BID Qty: 0 0RF nystatin [Nyamyc] 100,000 unit/gram Powder 1 applic topical BID Qty: 0 0RF Protocol: *Topical Application Instructions APPLICATION INSTRUCTIONS: UNDER DULCE BREASTS Petrolatum 33% [Eucerin Eqivalent] 1 applic topical BID Qty: 0 0RF triamcinolone acetonide 0.1 % Ointment 1 applic topical BID Qty: 0 0RF Protocol: *Topical Application Instructions APPLICATION INSTRUCTIONS: Abdominal rash. ondansetron HCl 4 mg tablet 4 mg PO Q8H PRN PRN (Reason: nausea and vomiting) albuterol sulfate 1.25 mg/3 mL solution for nebulization 1.25 mg inhalation Q4H Patient Comments: [NO ORIGINAL SIG] albuterol sulfate 90 mcg/actuation HFA aerosol inhaler 2 puff inhalation Q4H PRN (Reason: shortness of breath or wheezing) insulin glargine [Basaglar KwikPen U-100 Insulin] 100 unit/mL (3 mL) insulin pen 32 unit subcut DAILY oxybutynin chloride 10 mg tablet extended release 24hr 10 mg PO DAILY potassium chloride 20 mEq tablet,ER particles/crystals 20 meq PO DAILY ascorbic acid (vitamin C) [C-500] 500 mg tablet 1 g PO DAILY pramipexole 0.5 mg tablet 0.5 mg PO DAILY levothyroxine 100 mcg tablet 100 mcg PO DAILY furosemide 80 mg tablet 80 mg PO DAILY trazodone 100 mg tablet 100 mg PO QHS cetirizine [24Hour Allergy] 10 mg tablet 10 mg PO DAILY guaifenesin [Adult Tussin Chest Congestion] 100 mg/5 mL liquid 400 mg PO Q4H amlodipine 10 mg tablet 10 mg PO DAILY Qty: 90 3RF Referrals / Follow Up: Melissa Reed MD [Primary Care Provider, Geriatrics] Melissa Reed MD [[facility], Medical] Disposition Disposition (needs filled in before D/C Order can be placed): [facility]
[2025-05-14 09:36] VITALS: BP 131/60; PULSE 71; RESP 18; TEMP 36.8; O2SAT 96
--- NOTE | 2025-05-14 10:12 | CASEMGMT ---
Discharge Planning Discharge orders, signed med list, and transport time sent via [facility] to [facility]. Physicians will transport pt by wheelchair at 10:30a. Nursing, RN CM, pt, and her son (Angel) updated. Felicia Mejia DC Planning Asst.
--- NOTE | 2025-05-14 11:05 | NURSING ---
Called in report to Yuly MUÑOZ from [facility] at 11:05.
--- NOTE | 2025-05-14 15:02 | DS.PCM_ITS ---
Providers Date of Admission: 05/11/25 Primary Care Physician: Dr. Melissa Reed MD Reason For Visit: PNEUMONIA W/ HYPOXIA, AMS Diagnosis Discharge Diagnosis (1) URI (upper respiratory infection): Status: Acute Code(s): J06.9 - Acute upper respiratory infection, unspecified (2) Hypoxia: Status: Acute Code(s): R09.02 - Hypoxemia Medications at Discharge Home Medications ergocalciferol (vitamin D2) 1,250 mcg (50,000 unit) capsule (Vitamin D2) 1,250 mcg PO DAILY Supplement 12/23/20 amlodipine 10 mg tablet 10 mg PO DAILY BP #90 tabs 07/15/21 baclofen 10 mg tablet 10 mg PO DAILY Muscle Spasms 03/03/23 buspirone 5 mg tablet 5 mg PO BID PRN anxiety 03/03/23 hydralazine 25 mg tablet 50 mg PO TID BP 03/03/23 melatonin 3 mg capsule 3 mg PO QHS Sleep 03/03/23 paroxetine HCl 20 mg tablet (Paxil) 20 mg PO DAILY Mood 03/03/23 Petrolatum 33% [Eucerin Eqivalent] 1 applic topical BID ##0 03/15/23 acetaminophen 500 mg tablet 1,000 mg (2 x 500 mg) PO Q6H PRN Pain 1-10 #0 tabs 03/15/23 ammonium lactate 12 % lotion 1 applic topical BID #0 grams 03/15/23 atorvastatin 20 mg tablet 20 mg PO QHS #0 tabs 03/15/23 menthol 0.44 %-zinc oxide 20.6 % topical ointment (Calmoseptine) 1 applic topical BID #0 grams 03/15/23 nystatin 100,000 unit/gram topical powder (Nyamyc) 1 applic topical BID #0 grams 03/15/23 sennosides 8.6 mg-docusate sodium 50 mg tablet (Stool Softener-Stimulant Laxative) 1 tab PO BID #0 tabs 03/15/23 triamcinolone acetonide 0.1 % topical ointment 1 applic topical BID #0 grams 03/15/23 albuterol sulfate 1.25 mg/3 mL solution for nebulization 1.25 mg inhalation Q4H 05/11/25 albuterol sulfate 90 mcg/actuation aerosol inhaler 2 puff inhalation Q4H PRN shortness of breath or wheezing 05/11/25 ascorbic acid (vitamin C) 500 mg tablet (C-500) 1 g PO DAILY 05/11/25 cetirizine 10 mg tablet (24Hour Allergy) 10 mg PO DAILY 05/11/25 furosemide 80 mg tablet 80 mg PO DAILY 05/11/25 guaifenesin 100 mg/5 mL oral liquid (Adult Tussin Chest Congestion) 400 mg PO Q4H 05/11/25 insulin glargine 100 unit/mL (3 mL) subcutaneous pen (Basaglar KwikPen U-100 Insulin) 32 unit subcut DAILY 05/11/25 levothyroxine 100 mcg tablet 100 mcg PO DAILY 05/11/25 ondansetron HCl 4 mg tablet 4 mg PO Q8H PRN PRN nausea and vomiting 05/11/25 oxybutynin chloride 10 mg tablet,extended release 24 hr 10 mg PO DAILY 05/11/25 potassium chloride 20 mEq tablet,extended release(part/cryst) 20 meq PO DAILY 05/11/25 pramipexole 0.5 mg tablet 0.5 mg PO DAILY 05/11/25 trazodone 100 mg tablet 100 mg PO QHS 05/11/25 Hospital Course Operations None Procedures None Summary of Care Provided Minutes Spent on Discharge: 34 Hospital Course: Per HPI: BLANCO SANDOVAL, is a 79 F who presented to [facility] ED on 05/11/2025 from [facility] with URI symptoms, shortness of breath and confusion. She is not on oxygen at baseline. She developed URI symptoms about 3 to 4 days ago including a productive cough, congestion and shortness of breath. She had worsening shortness of breath today so they brought her in for further evaluation. In the ED she was hypoxic to the mid 80s on room air at rest. She otherwise was mildly hypertensive, in normal sinus rhythm and afebrile. She had a mild leukocytosis of 13,000. CBC and BMP were otherwise benign. ABG with pH 7.39, pCO2 62, pO2 64 on 3 L nasal cannula. Chest x-ray was unremarkable. In the ED she was noted to be very fatigued and fairly confused. She was alert and oriented to person and place but not time and was a very poor historian. Given these findings, hospitalist was contacted for admission. I saw the patient at bedside in the ED. Patient was fatigued appearing and intermittently falling asleep during my encounter with her. She appeared dehydrated with dry mucous and cracked lips noted. She was able to tell me her name and that she was at [facility] but could not tell me the month or year. She denied any acute pain or discomfort currently. Denied any fevers or chills. No other acute concerns currently. Will be admitted for further management. Hospital Course: 1. Acute hypoxic respiratory insufficiency secondary to viral URI with acute metabolic encephalopathy?79[place] [facility] hospital URI symptoms as well as confusion. Her confusion resolved fairly quickly. Procalcitonin was negative and she was never started on any antibiotics, and sputum cultures have been negative. Viral panels were also negative however she has had significant improvement in her mental status and she is also improved in her oxygen requirement so she still needs 2 L at rest and with ambulation on discharge. I discussed with her the possibly for discharge today and she expressed understanding of the risks and benefits [facility] jail and would like to go today. She says that she feels much improved from when she came into the hospital. She can resume her Lasix on discharge this was held secondary to a little bit of elevated creatinine that did not meet threshold for an LING. 2. Essential hypertension, hyperlipidemia, type 2 diabetes, hypothyroidism, anxiety, depression are all chronic medical conditions which complicate her care. Her home medications were continued where appropriate. Physical Exam Narrative General: Alert, Oriented x3, Cooperative, No apparent distress HEENT: Atraumatic, PERRLA, EOMI, Normocephalic Oral: Moist Mucosa Neck: Supple, No JVD Lungs: Diminished, Normal air movement, No rhonchi, No wheeze, No rales Cardiovascular: Regular rate, Regular Rhythm, Normal S1, Normal S2, No murmurs Abdomen: Soft, Non Tender, Non-Distended, No Hepato-splenomegaly Extremities: Edema, Capillary Refill Less than 3 Seconds Skin: No rashes, No breakdown, bilateral lower extremities wrapped Musculoskeletal: No Tenderness to Palpation of Joints or Extremities Neurological: No focal neurological deficits, moves all extremities Psych/Mental Status: Normal Affect, Appropriate Weight / BMI Weight Weight: 240 lb 15.444 oz Body Mass Index (BMI) 37.7 ABG / Lab / Microbiology Data 05/14/25 05:27 05/13/25 05:44 Laboratory: Laboratory Results - last 24 hr 05/13/25 17:26: POC Glucose 242 H 05/13/25 22:25: POC Glucose 222 H 05/14/25 05:27: WBC 11.9 H, RBC 3.54 L, Hgb 10.5 L, Hct 34.1 L, MCV 96.3, MCH 29.7, MCHC 30.8 L, RDW Std Deviation 42.7, RDW Coeff of Daphney 12.0, Plt Count 316, MPV 9.8, Immature Gran % (Auto) 1.300 H, Neut % (Auto) 64.7, Lymph % (Auto) 20.1, [place] % (Auto) 8.8, Eos % (Auto) 4.4, Baso % (Auto) 0.7, Absolute Neuts (auto) 7.7, Absolute Lymphs (auto) 2.40, Nucleated RBC % 0 05/14/25 06:42: POC Glucose 165 H Microbiology: Microbiology 05/11/25 23:10 Sputum, Expectorated/Coughed Gram Stain - Final 05/11/25 23:10 Sputum, Expectorated/Coughed Respiratory Culture - Preliminary Gram negative organism Staphylococcus aureus 05/11/25 21:30 Mucosa - Nasopharyngeal Respiratory Panel (PCR) - Final 05/11/25 21:30 Mucosa - Nasopharyngeal Coronavirus COVID-19 PCR - Final D/C Instructions DC O2, CPAP, BIPAP Needs Home O2 Discharge instructions: No Meaningful Use Info Meaningful Use Meaningful Use Diagnoses (Choose all that apply): None applicable Discharge Plan Admission Admit Date/Time: 05/11/25 18:50 Attending Provider: Zafar Cisneros Primary Care Provider: Melissa Reed Consulting Providers: Malcolm Graham; Zafar Cisneros; Ruperto Alaniz Discharge Orders/Prescriptions Prescriptions: Continued ergocalciferol (vitamin D2) [Vitamin D2] 1,250 mcg (50,000 unit) capsule 1,250 mcg PO DAILY baclofen 10 mg tablet 10 mg PO DAILY buspirone 5 mg tablet 5 mg PO BID PRN (Reason: anxiety) hydralazine 25 mg tablet 50 mg PO TID melatonin 3 mg capsule 3 mg PO QHS paroxetine HCl [Paxil] 20 mg tablet 20 mg PO DAILY acetaminophen 500 mg Tablet 1,000 mg PO Q6H PRN (Reason: Pain 1-10) Qty: 0 0RF atorvastatin 20 mg Tablet 20 mg PO QHS Qty: 0 0RF ammonium lactate 12 % Lotion 1 applic topical BID Qty: 0 0RF Protocol: *Topical Application Instructions APPLICATION INSTRUCTIONS: apply to bilateral lower extremities 1-2 times per day menthol-zinc oxide [Calmoseptine] 0.44-20.6 % Ointment 1 applic topical BID Qty: 0 0RF Protocol: *Topical Application Instructions APPLICATION INSTRUCTIONS: DULCE BUTTOCKS/COCCYX sennosides-docusate sodium [Stool Softener-Stimulant Laxat] 8.6-50 mg Tablet 1 tab PO BID Qty: 0 0RF nystatin [Nyamyc] 100,000 unit/gram Powder 1 applic topical BID Qty: 0 0RF Protocol: *Topical Application Instructions APPLICATION INSTRUCTIONS: UNDER DULCE BREASTS Petrolatum 33% [Eucerin Eqivalent] 1 applic topical BID Qty: 0 0RF triamcinolone acetonide 0.1 % Ointment 1 applic topical BID Qty: 0 0RF Protocol: *Topical Application Instructions APPLICATION INSTRUCTIONS: Abdominal rash. ondansetron HCl 4 mg tablet 4 mg PO Q8H PRN PRN (Reason: nausea and vomiting) albuterol sulfate 1.25 mg/3 mL solution for nebulization 1.25 mg inhalation Q4H Patient Comments: [NO ORIGINAL SIG] albuterol sulfate 90 mcg/actuation HFA aerosol inhaler 2 puff inhalation Q4H PRN (Reason: shortness of breath or wheezing) insulin glargine [Teaaglar Xiao U-100 Insulin] 100 unit/mL (3 mL) insulin pen 32 unit subcut DAILY oxybutynin chloride 10 mg tablet extended release 24hr 10 mg PO DAILY potassium chloride 20 mEq tablet,ER particles/crystals 20 meq PO DAILY ascorbic acid (vitamin C) [C-500] 500 mg tablet 1 g PO DAILY pramipexole 0.5 mg tablet 0.5 mg PO DAILY levothyroxine 100 mcg tablet 100 mcg PO DAILY furosemide 80 mg tablet 80 mg PO DAILY trazodone 100 mg tablet 100 mg PO QHS cetirizine [24Hour Allergy] 10 mg tablet 10 mg PO DAILY guaifenesin [Adult Tussin Chest Congestion] 100 mg/5 mL liquid 400 mg PO Q4H amlodipine 10 mg tablet 10 mg PO DAILY Qty: 90 3RF Referrals / Follow Up: Melissa Reed MD [Primary Care Provider, Geriatrics] Melissa Reed MD [[facility], Medical] Disposition Disposition (needs filled in before D/C Order can be placed): [facility] Charges/Coding Visit Charges Inpatient E&M: 00528 Disch Hosp >30min
== END 2025-05-14 10:55 | disposition skilled nursing facility (03) | DRG 152 ==
LOC: ED 18:31 → PCU 19:03
PROVIDERS: Admitting Provider Hospitalist; Emergency Provider Emergency Medicine; PCP Internal Medicine; Visit Provider Family Medicine
DX: J06.9 Acute upper respiratory infection, unspecified (principal); G93.41 Metabolic encephalopathy; Z68.41 Body mass index [BMI] 40.0-44.9, adult; Z66 Do not resuscitate; E11.9 Type 2 diabetes mellitus without complications; E03.9 Hypothyroidism, unspecified; I10 Essential (primary) hypertension; F32.A Depression, unspecified; G47.33 Obstructive sleep apnea (adult) (pediatric); J20.9 Acute bronchitis, unspecified; I89.0 Lymphedema, not elsewhere classified; E78.2 Mixed hyperlipidemia; F41.9 Anxiety disorder, unspecified; Z79.4 Long term (current) use of insulin; M62.838 Other muscle spasm; E66.812 Obesity, class 2; R62.7 Adult failure to thrive; Z79.899 Other long term (current) drug therapy; Z68.37 Body mass index [BMI] 37.0-37.9, adult; R53.81 Other malaise; N32.81 Overactive bladder; R06.89 Other abnormalities of breathing; R09.02 Hypoxemia; Z79.890 Hormone replacement therapy; Z90.49 Acquired absence of other specified parts of digestive tract
CPT/HCPCS: 36415; 36600; 71045; 80048; 80053; 82140; 82803; 82962; 83605; 84145; 84443; 85025; 85027; 85610; 85730; 87070; 87077; 87186; 87205; 87633; 87635; 93005; 94640; 94668; 97162; 97166; 97530; 97535; 99285; A4216